=== PATIENT | female | born 1970 | race Caucasian/White ===

== ENCOUNTER → 2016-10-19 | Outpatient (CLI) | payer MEDICARE ==
--- NOTE | 2016-10-19 12:24 | CT ---
EXAMINATION TYPE: CT lumbar spine wo con DATE OF EXAM: 10/19/2016 12:14 PM COMPARISON: NONE HISTORY: 46-year-old female with lumbago, low back pain TECHNIQUE: Contiguous axial scanning of the lumbar spine without IV contrast. Coronal and sagittal re constructions performed. CT DLP: 313.9 mGycm Automated exposure control for dose reduction was used. FINDINGS: Vertebral body heights are preserved and alignment is maintained. The L1-L2 intervertebral disc is desiccated, narrowed, and bulging. Additional bulging disks seen thr oughout the remainder of the lumbar spine. Mild facet arthropathy mid to lower lumbar spine. At T12-L1, no spinal canal or neuroforaminal stenosis. L1-L2, there is bulging disc which impresses onto the ventral thecal sac but does not cause significa nt spinal canal or neuroforaminal stenosis. At L2-L3, there is diffuse disc bulge which impresses on ventral thecal sac but does not cause any si gnificant spinal canal or neuroforaminal stenosis. At L3-L4, there is diffuse disc bulge without significant spinal canal or neuroforaminal stenosis. At L4-L5, there is diffuse disc bulge and mild facet degenerative change. Minimal encroachment onto t he inferior left neuroforamen. No significant spinal canal stenosis. L5-S1, bulging disc and mild facet degenerative change. No significant spinal canal or neuroforaminal stenosis. No prevertebral or paravertebral soft tissue abnormality seen. Wheel Loader Operator image shows a right ventricular AICD lead. IMPRESSION: 1. NO VERTEBRAL COMPRESSION COLLAPSE OR MALALIGNMENT. 2. DEGENERATIVE DISC DISEASE WITH BULGING DISCS THROUGHOUT. THE L1-L2 INTERVERTEBRAL DISC IS ALSO ALEKSANDR ICCATED AND NARROWED. 3. MILD FACET ARTHROPATHY LOWER LUMBAR SPINE. 4. NO SIGNIFICANT SPINAL CANAL OR NEUROFORAMINAL STENOSIS SEEN.
== END | disposition home or self-care (01) ==
LOC: RADCTMAIN 11:43
PROVIDERS: ATTEND Psychiatry & Neurology Neurology
DX: M51.26 Other intervertebral disc displacement, lumbar region (principal); M51.36 Other intervertebral disc degeneration, lumbar region; M46.86 Other specified inflammatory spondylopathies, lumbar region
CPT/HCPCS: 72131

== ENCOUNTER → 2016-10-20 | Outpatient (CLI) | payer MEDICARE ==
[2016-10-20 12:12] LABS: Carbamazepine (Tegretol) <3.0 ug/mL
== END | disposition home or self-care (01) ==
LOC: LABWHC1 09:28
PROVIDERS: ATTEND Psychiatry & Neurology Pain Medicine
DX: R56.9 Unspecified convulsions (principal)
CPT/HCPCS: 36415; 80156; 80177; 80185

== ENCOUNTER → 2016-12-21 | Outpatient (CLI) | payer MEDICARE ==
[2016-12-21 10:26] LABS: CH 29.4; CHCM 31.4; HDW 2.27; HGB 12.3 gm/dL (11.4-16.0); MCH 30.6 pg (25.0-35.0); MCHC 32.5 g/dL (31.0-37.0); MCV 94.1 fL (80.0-100.0); Mean Platelet Volume 7.3; RBC 4.04 m/uL (3.80-5.40); RDW 14.2 % (11.5-15.5)
[2016-12-21 11:41] LABS: ALT 36 U/L (9-52); AST 31 U/L (14-36); Alkaline Phosphatase 66 U/L (38-126); Anion Gap 9 mmol/L; Blood Urea Nitrogen 9 mg/dL (7-17); Calcium 8.7 mg/dL (8.4-10.2); Carbon Dioxide 29 mmol/L (22-30); Chloride 103 mmol/L (98-107); Glucose 95 mg/dL (74-99); Non-African American GFR(MDRD) >60 (>60 ml/min/1.73 sqM); Potassium 4.2 mmol/L (3.5-5.1); Sodium 141 mmol/L (137-145); Total Bilirubin 0.5 mg/dL (0.2-1.3); Total Protein 7.3 g/dL (6.3-8.2)
== END | disposition home or self-care (01) ==
LOC: LABWHC1 10:04
PROVIDERS: ATTEND Internal Medicine Cardiovascular Disease
DX: I50.9 Heart failure, unspecified (principal)
CPT/HCPCS: 36415; 80053; 83880; 85027

== ENCOUNTER 2017-03-22 16:25 | Inpatient (IN) | payer MEDICARE ==
[2017-03-22 16:38] LABS: Glucose,Whole Blood 89 mg/dL (75-99)
[2017-03-22] MEDS ORDERED: SODIUM CHLORIDE 0.9% 500 ML IV STA (17:01)
--- NOTE | 2017-03-22 17:15 | ED ---
General Adult HPI - General Chief complaint: Neuro Symptoms/Deficit Stated complaint: Cannot Walk Time Seen by Provider: 03/22/17 16:30 Source: patient, family, RN notes reviewed Mode of arrival: wheelchair Limitations: no limitations - History of Present Illness Initial comments: This is a 47-year-old female presents to the emergency room stating she has a past medical history for stroke. Patient states she has residual deficit and her left arm and leg. Patient states she has a little bit off balance normally but today she is extremely dizzy and she is having a hard time walking. She keeps falling to the left. Patient states her left leg and arm move as they have prior to this dizziness spell today. Patient states she is not having any headache she denies any new weakness or numbness. Patient denies any visual disturbance or speech disturbance. Patient states her symptoms of dizziness started 1 hour prior to arrival. Patient denies any recent fever chills or cough. Patient denies abdominal pain patient denies nausea vomiting diarrhea. Patient has a very poor historian - Related Data Home Medications Medication Instructions Recorded Confirmed Atorvastatin Calcium [Lipitor] 80 mg PO DAILY 03/08/14 03/22/17 Carvedilol 3.125 mg PO AC-BID 03/08/14 03/22/17 Lisinopril [Prinivil] 10 mg PO DAILY 03/08/14 03/22/17 Spironolactone [Aldactone] 25 mg PO DAILY 03/08/14 03/22/17 Warfarin [Coumadin] 2.5 mg PO DAILY 07/09/14 03/22/17 Donepezil [Aricept] 10 mg PO HS 07/11/14 03/22/17 Phenytoin Sodium Extended 100 mg PO TID 07/11/14 03/22/17 [Dilantin] Gabapentin [Gralise] 600 mg PO TID 03/22/17 03/22/17 Naproxen [Naprosyn] 500 mg PO BID 03/22/17 03/22/17 carBAMazepine CHEW [TEGretol CHEW] 200 mg PO TID 03/22/17 03/22/17 levETIRAcetam [Keppra] 1,500 mg PO BID 03/22/17 03/22/17 Allergies Allergy/AdvReac Type Severity Reaction Status Date / Time cephalexin monohydrate Allergy Rash/Hives Verified 03/22/17 17:07 [From Keflex] Penicillins Allergy Unknown Verified 03/22/17 17:07 Childhood Review of Systems ROS Statement: Those systems with pertinent positive or pertinent negative responses have been documented in the HPI. ROS Other: All systems not noted in ROS Statement are negative. Past Medical History Past Medical History: Coronary Artery Disease (CAD), Heart Failure, CVA/TIA, Seizure Disorder Additional Past Medical History / Comment(s): epilepsy History of Any Multi-Drug Resistant Organisms: None Reported Past Surgical History: Pacemaker Additional Past Surgical History / Comment(s): pacer. Past Psychological History: Depression Smoking Status: Current every day smoker Past Alcohol Use History: None Reported Past Drug Use History: None Reported General Exam - General Exam Comments Initial Comments: GENERAL: Patient is well-developed and well-nourished. Patient is nontoxic and well- hydrated and is in mild distress. ENT: Neck is soft and supple. No significant lymphadenopathy is noted. Oropharynx is clear. Moist mucous membranes. Neck has full range of motion without eliciting any pain. EYES: The sclera were anicteric and conjunctiva were pink and moist. Extraocular movements were intact and pupils were equal round and reactive to light. Eyelids were unremarkable. PULMONARY: Unlabored respirations. Good breath sounds bilaterally. No audible rales rhonchi or wheezing was noted. CARDIOVASCULAR: There is a regular rate and rhythm without any murmurs gallops or rubs. ABDOMEN: Soft and nontender with normal bowel sounds. SKIN: Skin is clear with no lesions or rashes and otherwise unremarkable. NEUROLOGIC: Patient is alert and oriented x3. Cranial nerves II through XII are grossly intact. Motor and sensory are also intact. Normal speech, volume and content. Symmetrical smile. MUSCULOSKELETAL: Patient's cranial nerves II through XII are grossly intact. Patient has full range of motion of her legs however she has some weakness with her dorsiflexion. Patient's left arm has baseline movement according to her there is no new weakness. It does not appear to have quite a coordination that her right arm does but she states that is from the previous stroke. LYMPHATICS: No significant lymphadenopathy is noted PSYCHIATRIC: Normal psychiatric evaluation. Limitations: no limitations Course Vital Signs 03/22/17 03/22/17 16:28 17:44 Temperature 97.7 F 98.5 F Pulse Rate 80 63 Respiratory 18 Rate Blood Pressure 138/78 133/76 O2 Sat by Pulse 98 99 Oximetry Medical Decision Making - Medical Decision Making EKG shows normal sinus rhythm at 60 bpm SC interval is 142 QRS is 88 QT interval 46 QTC is 431. Patient's EKG shows no ST segment elevation or depression or T wave abnormalities are noted. CT showed no acute abnormality. I spoke with Dr. Auguste and he agreed to admit the patient admitted the patient consult the neurology. - Lab Data Result diagrams: 03/22/17 17:04 03/22/17 17:04 Lab Results 03/22/17 03/22/17 03/22/17 Range/Units 16:37 17:04 17:04 WBC 4.2 (3.8-10.6) k/uL RBC 3.97 (3.80-5.40) m/uL Hgb 12.1 (11.4-16.0) gm/dL Hct 36.6 (34.0-46.0) % MCV 92.3 (80.0-100.0) fL MCH 30.6 (25.0-35.0) pg MCHC 33.1 (31.0-37.0) g/dL RDW 14.0 (11.5-15.5) % Plt Count 198 (150-450) k/uL Neutrophils % 48 % Lymphocytes % 41 % Monocytes % 7 % Eosinophils % 2 % Basophils % 0 % Neutrophils # 2.0 (1.3-7.7) k/uL Lymphocytes # 1.7 (1.0-4.8) k/uL Monocytes # 0.3 (0-1.0) k/uL Eosinophils # 0.1 (0-0.7) k/uL Basophils # 0.0 (0-0.2) k/uL PT (9.0-12.0) sec INR (<1.2) APTT (22.0-30.0) sec Sodium (137-145) mmol/L Potassium (3.5-5.1) mmol/L Chloride (98-107) mmol/L Carbon Dioxide (22-30) mmol/L Anion Gap mmol/L BUN (7-17) mg/dL Creatinine (0.52-1.04) mg/dL Est GFR (MDRD) Af Amer (>60 ml/min/1.73 sqM) Est GFR (MDRD) Non-Af (>60 ml/min/1.73 sqM) Glucose (74-99) mg/dL POC Glucose (mg/dL) 89 (75-99) mg/dL POC Glu Patient Service Technician Pst [place]ris [place] Calcium (8.4-10.2) mg/dL Total Bilirubin (0.2-1.3) mg/dL AST (14-36) U/L ALT (9-52) U/L Alkaline Phosphatase (38-126) U/L Total Creatine Kinase 129 (30-135) U/L CK-MB (CK-2) 0.6 (0.0-2.4) ng/mL CK-MB (CK-2) Rel Index 0.5 Troponin I <0.012 (0.000-0.034) ng/mL Total Protein (6.3-8.2) g/dL Albumin (3.5-5.0) g/dL 03/22/17 03/22/17 Range/Units 17:04 17:04 WBC (3.8-10.6) k/uL RBC (3.80-5.40) m/uL Hgb (11.4-16.0) gm/dL Hct (34.0-46.0) % MCV (80.0-100.0) fL MCH (25.0-35.0) pg MCHC (31.0-37.0) g/dL RDW (11.5-15.5) % Plt Count (150-450) k/uL Neutrophils % % Lymphocytes % % Monocytes % % Eosinophils % % Basophils % % Neutrophils # (1.3-7.7) k/uL Lymphocytes # (1.0-4.8) k/uL Monocytes # (0-1.0) k/uL Eosinophils # (0-0.7) k/uL Basophils # (0-0.2) k/uL PT 28.1 H (9.0-12.0) sec INR 2.9 H (<1.2) APTT 30.9 H (22.0-30.0) sec Sodium 139 (137-145) mmol/L Potassium 4.6 (3.5-5.1) mmol/L Chloride 107 (98-107) mmol/L Carbon Dioxide 23 (22-30) mmol/L Anion Gap 9 mmol/L BUN 10 (7-17) mg/dL Creatinine 0.53 (0.52-1.04) mg/dL Est GFR (MDRD) Af Amer >60 (>60 ml/min/1.73 sqM) Est GFR (MDRD) Non-Af >60 (>60 ml/min/1.73 sqM) Glucose 80 (74-99) mg/dL POC Glucose (mg/dL) (75-99) mg/dL POC Glu Patient Service Technician Pst ID Calcium 8.2 L (8.4-10.2) mg/dL Total Bilirubin 0.5 (0.2-1.3) mg/dL AST 48 H (14-36) U/L ALT 40 (9-52) U/L Alkaline Phosphatase 56 (38-126) U/L Total Creatine Kinase (30-135) U/L CK-MB (CK-2) (0.0-2.4) ng/mL CK-MB (CK-2) Rel Index Troponin I (0.000-0.034) ng/mL Total Protein 6.8 (6.3-8.2) g/dL Albumin 3.8 (3.5-5.0) g/dL Disposition Clinical Impression: Dizziness, Ataxia Disposition: ADMITTED IP TO THIS HOSP Referrals: Garth Auguste MD [Primary Care Provider] - 1-2 days Time of Disposition: 18:49
[2017-03-22 17:18] LABS: Basophils % (A) 0 %; CHCM 32.6; Eosinophils # (A) 0.1 k/uL (0-0.7); Eosinophils % (A) 2 %; HCT 36.6 % (34.0-46.0); HDW 2.31; HGB 12.1 gm/dL (11.4-16.0); Luc # (Auto) 0.09; Luc % (Auto) 2; Lymphocytes # (A) 1.7 k/uL (1.0-4.8); Lymphocytes % (A) 41 %; MCH 30.6 pg (25.0-35.0); MCHC 33.1 g/dL (31.0-37.0); MCV 92.3 fL (80.0-100.0); Mean Platelet Volume 8.6; Monocytes # (A) 0.3 k/uL (0-1.0); Monocytes % (A) 7 %; Neutrophils % (A) 48 %; RBC 3.97 m/uL (3.80-5.40); WBC 4.2 k/uL (3.8-10.6); WBC (Perox) 4.31
[2017-03-22 17:26] LABS: ALT 40 U/L (9-52); AST 48 U/L (14-36); Alkaline Phosphatase 56 U/L (38-126); Anion Gap 9 mmol/L; Blood Urea Nitrogen 10 mg/dL (7-17); Calcium 8.2 mg/dL (8.4-10.2); Carbon Dioxide 23 mmol/L (22-30); Chloride 107 mmol/L (98-107); Glucose 80 mg/dL (74-99); Non-African American GFR(MDRD) >60 (>60 ml/min/1.73 sqM); Potassium 4.6 mmol/L (3.5-5.1); Sodium 139 mmol/L (137-145); Total Bilirubin 0.5 mg/dL (0.2-1.3); Total Protein 6.8 g/dL (6.3-8.2)
[2017-03-22 17:27] LABS: INR 2.9 (<1.2); Partial Thromboplastin Time 30.9 sec (22.0-30.0); Prothrombin Time 28.1 sec (9.0-12.0)
[2017-03-22 17:35] LABS: Creatine Kinase 129 U/L (30-135)
--- NOTE | 2017-03-22 17:46 | CT ---
EXAMINATION TYPE: CT brain wo con for TPA DATE OF EXAM: 03/22/2017 COMPARISON: 01/17/2015 HISTORY: Sudden onset inability to walk CT DLP: 1213 mGycm Automated exposure control for dose reduction was used. FINDINGS: The previously seen large areas of encephalomalacia consistent with prior infarcts in the r ight frontal and parietal and left frontal lobes are redemonstrated without interval change. There is no definite new attenuation defect. There is no mass or mass effect. No hemorrhage or fracture. The visualized paranasal sinuses and mastoid sinus air cells and middle ear cavities are unremarkable . IMPRESSION: 1. NO DEFINITE ACUTE PROCESS. 2. PRIOR BILATERAL ENCEPHALOMALACIA CHANGES REDEMONSTRATED.
[2017-03-22 17:48] LABS: Creatine Kinase MB 0.6 ng/mL (0.0-2.4); Troponin I <0.012 ng/mL (0.000-0.034)
--- NOTE | 2017-03-22 17:49 | XR ---
EXAMINATION TYPE: XR chest 3V DATE OF EXAM: 03/22/2017 COMPARISON: 01/17/2015 HISTORY: Altered mental status left-sided numbness TECHNIQUE: Frontal and 2 lateral views of the chest are obtained. FINDINGS: Pacemaker and EKG leads noted. There is no focal air space opacity, pleural effusion, or p neumothorax seen. The cardiac silhouette size is within normal limits. The osseous structures are intact. IMPRESSION: No acute cardiopulmonary process.
--- NOTE | 2017-03-22 22:22 | US ---
EXAMINATION TYPE: US carotid duplex BILAT DATE OF EXAM: 03/22/2017 COMPARISON: Prior in PACS CLINICAL HISTORY: Stenosis. Trouble walking, syncope EXAM MEASUREMENTS: RIGHT: Peak Systolic Velocity (PSV) cm/sec ----- Right CCA: 71.1 ----- Right ICA: 110.4 ----- Right ECA: 75.5 ICA/CCA ratio: 1.6 RIGHT: End Diastole cm/sec ----- Right CCA: 24.6 ----- Right ICA: 40.6 ----- Right ECA: 14.4 LEFT: Peak Systolic Velocity (PSV) cm/sec ----- Left CCA: 98.4 ----- Left ICA: 104.8 ----- Left ECA: 70.2 ICA/CCA ratio: 1.1 LEFT: End Diastole cm/sec ----- Left CCA: 32.1 ----- Left ICA: 37.0 ----- Left ECA: 12.0 VERTEBRALS (direction of flow): Right Vertebral: Antegrade Left Vertebral: Antegrade IMPRESSION: MILD/MODERATE AMOUNT OF PLAQUE VISUALIZED IN BILATERAL BULBS/PROXIMAL ICAS. NO ELEVATED VELOCITIES.
[2017-03-23] MEDS: DONEPEZIL 10 MG TAB PO SCH ×2 (00:29→23:12)
[2017-03-23] MEDS: levETIRAcetam 500 MG TAB PO SCH ×3 (00:30→23:11)
[2017-03-23] MEDS: GABAPENTIN 300 MG CAP PO SCH ×4 (00:30→23:10)
[2017-03-23] MEDS: PHENYTOIN SODIUM EXTENDED 100 MG CAP PO SCH ×4 (00:30→23:11)
[2017-03-23 06:04] LABS: Cholesterol 134 mg/dL (<200); HDL Cholesterol 47 mg/dL (40-60); Triglycerides 61 mg/dL (<150)
[2017-03-23] MEDS ORDERED: ATORVASTATIN 80 MG TAB PO SCH (09:00)
[2017-03-23] MEDS ORDERED: WARFARIN 5 MG TAB PO SCH (09:00)
[2017-03-23] MEDS ORDERED: SPIRONOLACTONE 25 MG TAB PO SCH (09:00)
[2017-03-23] MEDS ORDERED: PHENYTOIN SODIUM EXTENDED 100 MG CAP PO SCH (09:00)
[2017-03-23] MEDS ORDERED: LISINOPRIL 20 MG TAB PO SCH (09:00)
[2017-03-23] MEDS ORDERED: GABAPENTIN 600 MG PO SCH (09:00)
[2017-03-23] MEDS: LISINOPRIL 10 MG TAB PO SCH (09:38)
[2017-03-23] MEDS: CARVEDILOL 3.125 MG TAB PO SCH ×2 (09:38→16:27)
[2017-03-23] MEDS: ATORVASTATIN 80 MG TAB PO SCH (09:38)
[2017-03-23] MEDS: SPIRONOLACTONE 25 MG TAB PO SCH (09:39)
[2017-03-23] MEDS: NAPROXEN 250 MG TAB PO SCH ×2 (09:39→23:12)
--- NOTE | 2017-03-23 09:45 | P.HPIM ---
History of Present Illness 47-year-old female was admitted to the emergency room with complaints of left- sided weakness and able to ambulate. Patient does have history of CVA in 2007 for which she was left with left-sided weakness. Patient is stable at this time. Patient does have a seizure disorder last seizure is been [address] Roberts at this time.. Patient does have a history of a pacemaker states she has cardiomyopathy and heart failure Review of Systems Neurological: Reports transient paralysis, Reports weakness Past Medical History Past Medical History: Coronary Artery Disease (CAD), Heart Failure, CVA/TIA, Seizure Disorder Additional Past Medical History / Comment(s): epilepsy History of Any Multi-Drug Resistant Organisms: None Reported Past Surgical History: Pacemaker Additional Past Surgical History / Comment(s): pacer. Past Psychological History: Depression Smoking Status: Current every day smoker Past Alcohol Use History: None Reported Past Drug Use History: None Reported Medications and Allergies Home Medications Medication Instructions Recorded Confirmed Type Atorvastatin Calcium [Lipitor] 80 mg PO DAILY 03/08/14 03/22/17 History Carvedilol 3.125 mg PO AC-BID 03/08/14 03/22/17 History Lisinopril [Prinivil] 10 mg PO DAILY 03/08/14 03/22/17 History Spironolactone [Aldactone] 25 mg PO DAILY 03/08/14 03/22/17 History Warfarin [Coumadin] 2.5 mg PO DAILY 07/09/14 03/22/17 History Donepezil [Aricept] 10 mg PO HS 07/11/14 03/22/17 History Phenytoin Sodium Extended 100 mg PO TID 07/11/14 03/22/17 History [Dilantin] Gabapentin [Gralise] 600 mg PO TID 03/22/17 03/22/17 History Naproxen [Naprosyn] 500 mg PO BID 03/22/17 03/22/17 History carBAMazepine CHEW [TEGretol CHEW] 200 mg PO TID 03/22/17 03/22/17 History levETIRAcetam [Keppra] 1,500 mg PO BID 03/22/17 03/22/17 History Allergies Allergy/AdvReac Type Severity Reaction Status Date / Time cephalexin monohydrate Allergy Rash/Hives Verified 03/22/17 17:07 [From Keflex] Penicillins Allergy Unknown Verified 03/22/17 17:07 Childhood Physical Exam Vitals: Vital Signs Temp Pulse Resp BP Pulse Ox 03/23/17 09:27 98.1 F 71 18 112/60 97 03/23/17 07:45 97.9 F 65 18 110/82 98 03/23/17 06:00 98.7 F 62 18 124/57 98 03/23/17 04:41 67 18 105/56 98 03/23/17 03:13 58 L 18 99/58 97 03/23/17 01:58 98.1 F 73 18 132/61 97 03/23/17 00:36 98.6 F 69 18 93/55 98 03/22/17 23:06 73 16 112/74 97 03/22/17 21:54 66 113/66 98 03/22/17 21:49 65 18 112/86 98 03/22/17 18:57 98.1 F 64 18 129/68 98 03/22/17 18:14 61 18 133/82 99 03/22/17 17:44 98.5 F 63 133/76 99 03/22/17 17:39 63 18 133/76 99 03/22/17 17:29 64 18 141/83 99 03/22/17 16:28 97.7 F 80 18 138/78 98 Intake and Output 03/22/17 03/23/17 03/23/17 22:59 06:59 14:59 Other: # Voids 1 Weight 56.699 kg - Constitutional General appearance: average body habitus, mild distress - EENT Fractured teeth noted with caries Eyes: PERRLA ENT: normal oropharynx Ears: bilateral: normal - Neck Neck: normal ROM - Respiratory Respiratory: bilateral: CTA - Cardiovascular Rhythm: regular - Gastrointestinal General gastrointestinal: soft - Integumentary Integumentary: normal - Neurologic Neurologic: CNII-XII intact - Musculoskeletal Musculoskeletal: left sided weakness - Psychiatric Psychiatric: A&O x's 3, appropriate affect, intact judgment & insight Results CBC & Chem 7: 03/22/17 17:04 03/22/17 17:04 Labs: Abnormal Lab Results - Last 24 Hours (Table) 03/22/17 03/22/17 Range/Units 17:04 17:04 PT 28.1 H (9.0-12.0) sec INR 2.9 H (<1.2) APTT 30.9 H (22.0-30.0) sec Calcium 8.2 L (8.4-10.2) mg/dL AST 48 H (14-36) U/L Chest x-ray: report reviewed CT Scan - head: report reviewed Assessment and Plan Plan: Assessment Dizziness and ataxia and TIA History of coronary disease with pacemaker for cardiomyopathy History of CVA/TIA 2007 with residual left-sided weakness History of seizures last seizure 7 years ago Plan Neurology consultation
[2017-03-23] MEDS ORDERED: CARVEDILOL 3.125 MG TAB PO SCH (17:30)
[2017-03-23] MEDS: WARFARIN 2.5 MG TAB PO SCH (17:45)
[2017-03-23] MEDS ORDERED: DONEPEZIL 10 MG TAB PO SCH (21:00)
--- NOTE | 2017-03-23 21:21 | P.CNNES ---
History of Present Illness Consult date: 03/23/17 History of Present Illness: The patient is a 47-year-old handed white female with history of stroke in 2007 with left-sided weakness and history of seizures since 2008 seizure-free since 2009. She reports that yesterday she felt a sense of disequilibrium which lasted 45 minutes. She describes it as a feeling of walking on a crew ship. Intermittent resolved after 45 minutes and she there has been no recurrence. Not she denies any new weakness or numbness or visual changes. Her seizures are under control with Dilantin and Tegretol and Keppra. She sees Dr. Roberts. Review of Systems Constitutional: Denies chills, Denies fever Eyes: denies blurred vision, denies pain Ears, nose, mouth and throat: Denies headache, Denies sore throat Cardiovascular: Denies chest pain, Denies shortness of breath Gastrointestinal: Denies abdominal pain, Denies diarrhea, Denies nausea, Denies vomiting Genitourinary: Denies dysuria, Denies hematuria Musculoskeletal: Denies myalgias Integumentary: Denies pruritus, Denies rash Neurological: Denies numbness, Denies weakness Psychiatric: Reports as per HPI Past Medical History Past Medical History: Coronary Artery Disease (CAD), Heart Failure, CVA/TIA, Seizure Disorder Additional Past Medical History / Comment(s): epilepsy History of Any Multi-Drug Resistant Organisms: None Reported Past Surgical History: Pacemaker Additional Past Surgical History / Comment(s): pacer. Past Anesthesia/Blood Transfusion Reactions: No Reported Reaction Type of Cardiac Device: Permanent Pacemaker Device Placement Date:: 2012 Smoking Status: Current every day smoker - Past Family History Father Family Medical History: Coronary Artery Disease (CAD) Medications and Allergies Home Medications Medication Instructions Recorded Confirmed Type Atorvastatin Calcium [Lipitor] 80 mg PO DAILY 03/08/14 03/22/17 History Carvedilol 3.125 mg PO AC-BID 03/08/14 03/22/17 History Lisinopril [Prinivil] 10 mg PO DAILY 03/08/14 03/22/17 History Spironolactone [Aldactone] 25 mg PO DAILY 03/08/14 03/22/17 History Warfarin [Coumadin] 2.5 mg PO DAILY 07/09/14 03/22/17 History Donepezil [Aricept] 10 mg PO HS 07/11/14 03/22/17 History Phenytoin Sodium Extended 100 mg PO TID 07/11/14 03/22/17 History [Dilantin] Gabapentin [Gralise] 600 mg PO TID 03/22/17 03/22/17 History Naproxen [Naprosyn] 500 mg PO BID 03/22/17 03/22/17 History carBAMazepine CHEW [TEGretol CHEW] 200 mg PO TID 03/22/17 03/22/17 History levETIRAcetam [Keppra] 1,500 mg PO BID 03/22/17 03/22/17 History Allergies Allergy/AdvReac Type Severity Reaction Status Date / Time cephalexin monohydrate Allergy Rash/Hives Verified 03/22/17 17:07 [From Keflex] Penicillins Allergy Unknown Verified 03/22/17 17:07 Childhood Physical Examination - Vital Signs Vital Signs: Vital Signs Temp Pulse Pulse Resp BP BP Pulse Ox 03/23/17 16:00 97.8 F 65 16 109/47 99 03/23/17 12:00 98 F 64 16 104/57 100 03/23/17 09:27 98.1 F 71 18 112/60 97 03/23/17 07:45 97.9 F 65 18 110/82 98 03/23/17 06:00 98.7 F 62 18 124/57 98 03/23/17 04:41 67 18 105/56 98 03/23/17 03:13 58 L 18 99/58 97 03/23/17 01:58 98.1 F 73 18 132/61 97 03/23/17 00:36 98.6 F 69 18 93/55 98 03/22/17 23:06 73 16 112/74 97 03/22/17 21:54 66 113/66 98 03/22/17 21:49 65 18 112/86 98 Intake and Output 03/23/17 03/23/17 03/23/17 06:59 14:59 22:59 Intake Total 120 Balance 120 Intake: Oral 120 Other: # Voids 1 1 - Constitutional General appearance: cooperative - EENT EENT: PERRL - Respiratory Respiratory: lungs clear - Cardiovascular Cardiovascular: regular rate - Integumentary Integumentary: normal - Neurologic Mental status she was awake alert and oriented there was no dysphasia Cranial nerve examination: PERRL, tongue midline, facial droop Speech examination: intact Motor examination - right side: 5/5: biceps, triceps, wrist flexion, wrist extension, youth coordinator, hip flexors, knee extensors, dorsiflexion, toe extension (EHL) , plantarflexion Motor examination - left side: 4/5: wrist extension, youth coordinator, 5/5: biceps, triceps , wrist flexion, dorsiflexion, toe extension (EHL) Detailed sensory examination: other (Decreased light touch on the left arm and leg) Results - Laboratory Findings CBC and BMP: 03/22/17 17:04 03/22/17 17:04 Abnormal Lab Findings: Abnormal Labs 03/22/17 03/22/17 17:04 17:04 PT 28.1 H INR 2.9 H APTT 30.9 H Calcium 8.2 L AST 48 H Assessment and Plan (1) TIA (transient ischemic attack) Status: Acute Code(s): G45.9 - TRANSIENT CEREBRAL ISCHEMIC ATTACK, UNSPECIFIED (2) Seizure disorder Status: Chronic Code(s): G40.909 - EPILEPSY, UNSP, NOT INTRACTABLE, WITHOUT STATUS EPILEPTICUS (3) History of stroke Status: Chronic Code(s): Z86.73 - PRSNL HX OF TIA (TIA), AND CEREB INFRC W/O RESID DEFICITS Plan: The patient is a 47-year-old woman with history of seizure disorder and stroke. She has been relatively stable in terms of her seizures and stroke. Yesterday she was admitted to the hospital with 45 minute episode of disequilibrium. The patient may have had a TIA. She is on Coumadin and her INR was 2.9 the patient is feeling like she is back to baseline. She had a CT of the brain which showed stable appearing areas of encephalomalacia consistent with prior infarcts in the right frontal and parietal lobes
[2017-03-24] MEDS: CARVEDILOL 3.125 MG TAB PO SCH ×2 (06:45→17:20)
[2017-03-24 07:05] LABS: INR 1.7 (<1.2); Prothrombin Time 16.7 sec (9.0-12.0)
[2017-03-24] MEDS: SPIRONOLACTONE 25 MG TAB PO SCH (07:47)
[2017-03-24] MEDS: ATORVASTATIN 80 MG TAB PO SCH (07:47)
[2017-03-24] MEDS: GABAPENTIN 300 MG CAP PO SCH ×2 (07:48→15:51)
[2017-03-24] MEDS: NAPROXEN 250 MG TAB PO SCH (07:48)
[2017-03-24] MEDS: PHENYTOIN SODIUM EXTENDED 100 MG CAP PO SCH ×2 (07:49→15:51)
[2017-03-24] MEDS: LISINOPRIL 10 MG TAB PO SCH (07:49)
[2017-03-24] MEDS: levETIRAcetam 500 MG TAB PO SCH (07:49)
--- NOTE | 2017-03-24 12:56 | P.DS ---
Providers Date of admission: 03/22/17 18:49 Expected date of discharge: 03/24/17 Attending physician: Garth Auguste Consults: 03/22/17 18:49 Consult Physician Routine Consulting Provider: Leticia Rivera Consult Reason/Comments: Dizziness, ataxia Do you want consulting provider notified?: Yes Primary care physician: Garth Auguste Hospital Course: 47-year-old female presented to the emergency room with complaints of weakness unable to stand increasingly left-sided weakness. Patient was evaluated by neurology. CAT scan no acute changes. Patient is at baseline with left-sided weakness. Assessment TIA history of CVA/TIA 2007 seizure disorder no seizures for seven years [address] Foreman history pacemaker for cardiomyopathy with her failure Plan discharge home to follow up with Dr. Corral telling physician Dr. Auguste Plan - Discharge Summary New Discharge Prescriptions: Continue Spironolactone [Aldactone] 25 mg PO DAILY Carvedilol 3.125 mg PO AC-BID Atorvastatin Calcium [Lipitor] 80 mg PO DAILY Lisinopril [Prinivil] 10 mg PO DAILY Warfarin [Coumadin] 2.5 mg PO DAILY Phenytoin Sodium Extended [Dilantin] 100 mg PO TID Donepezil [Aricept] 10 mg PO HS Naproxen [Naprosyn] 500 mg PO BID levETIRAcetam [Keppra] 1,500 mg PO BID carBAMazepine CHEW [TEGretol Chew] 200 mg PO TID Gabapentin [Gralise] 600 mg PO TID Discharge Medication List Atorvastatin Calcium [Lipitor] 80 mg PO DAILY 03/08/14 [History] Carvedilol 3.125 mg PO AC-BID 03/08/14 [History] Lisinopril [Prinivil] 10 mg PO DAILY 03/08/14 [History] Spironolactone [Aldactone] 25 mg PO DAILY 03/08/14 [History] Warfarin [Coumadin] 2.5 mg PO DAILY 07/09/14 [History] Donepezil [Aricept] 10 mg PO HS 07/11/14 [History] Phenytoin Sodium Extended [Dilantin] 100 mg PO TID 07/11/14 [History] Gabapentin [Gralise] 600 mg PO TID 03/22/17 [History] Naproxen [Naprosyn] 500 mg PO BID 03/22/17 [History] carBAMazepine CHEW [TEGretol Chew] 200 mg PO TID 03/22/17 [History] levETIRAcetam [Keppra] 1,500 mg PO BID 03/22/17 [History] Follow up Appointment(s)/Referral(s): Garth Auguste MD [Primary Care Provider] - 1-2 days Uma Roberts MD [STAFF PHYSICIAN] - 2 Weeks
--- NOTE | 2017-03-24 13:26 | ECHOF ---
Referral Reason:lv function/hx of stroke MEASUREMENTS -------- HEIGHT: 165.1 cm WEIGHT: 57.2 kg BP: 125/62 RVIDd: 1.9 cm (< 3.3) IVSd: 1.1 cm (0.6 - 1.1) LVIDd: 4.2 cm (3.9 - 5.3) LVPWd: 1.1 cm (0.6 - 1.1) IVSs: 1.5 cm LVIDs: 4.0 cm LVPWs: 1.4 cm LAESV Index (A-L): 50.46 ml/m Ao Diam: 3.0 cm (2.0 - 3.7) AV Cusp: 1.5 cm (1.5 - 2.6) LA Diam: 2.9 cm (2.7 - 3.8) MV EXCURSION: 19.848 mm (> 18.000) MV EF SLOPE: 83 mm/s (70 - 150) EPSS: 2.7 cm MV E Eusebio: 0.63 m/s MV DecT: 245 ms MV A Eusebio: 0.49 m/s MV E/A Ratio: 1.29 RAP: 5.00 mmHg RVSP: 22.48 mmHg FINDINGS -------- Sinus rhythm. This was a technically adequate study. There is borderline concentric left ventricular hypertrophy. Overall left ventricular systolic function is severely impaired with, an EF between 20 - 25 %. The right ventricle is normal in size and function. LA is severely dilated >40 ml/m2 The right atrium is normal in size. Electronic pacemaker lead seen in the right ventricular cavity. Aortic valve is trileaflet and is mildly thickened. There is no evidence of aortic regurgitation. There is no evidence of aortic stenosis. The mitral valve leaflets are mildly thickened. Mild mitral annular calcification present. There is trace to mild mitral regurgitation. Trace tricuspid regurgitation present. There is no evidence of pulmonary hypertension. The right ventricular systolic pressure, as measured by Doppler, is 22.48mmHg. The pulmonic valve was not well visualized. The aortic root size is normal. Normal inferior vena cava with normal inspiratory collapse consistent with estimated right atrial pressure of 5 mmHg. The pericardium is normal. There is no pericardial effusion. CONCLUSIONS -------- 1. Sinus rhythm. 2. There is trace to mild mitral regurgitation. 3. Trace tricuspid regurgitation present. 4. There is no evidence of pulmonary hypertension. 5. The right ventricular systolic pressure, as measured by Doppler, is 22.48mmHg. 6. The pulmonic valve was not well visualized. 7. The aortic root size is normal. 8. There is no pericardial effusion. 9. This was a technically adequate study. 10. There is borderline concentric left ventricular hypertrophy. 11. Overall left ventricular systolic function is severely impaired with, an EF between 20 - 25 %. 12. LA is severely dilated >40 ml/m2 13. Electronic pacemaker lead seen in the right ventricular cavity. 14. Aortic valve is trileaflet and is mildly thickened. 15. The mitral valve leaflets are mildly thickened. 16. Mild mitral annular calcification present. USABILITY STRATEGIST: Ganesh Carlos RDCS
[2017-03-24 15:10] VITALS: PULSE 75; RESP 18
[2017-03-24] MEDS: WARFARIN 2.5 MG TAB PO SCH (17:20)
[2017-03-24 17:52] VITALS: BP 106/70; TEMP 97.8
== END 2017-03-24 18:15 | disposition home or self-care (01) | DRG 69 ==
LOC: EC 16:25 → 6SEL 18:49
PROVIDERS: ADMIT Family Medicine; ATTEND Family Medicine
DX: G45.9 Transient cerebral ischemic attack, unspecified (principal); I42.9 Cardiomyopathy, unspecified; I50.9 Heart failure, unspecified; I69.354 Hemiplegia and hemiparesis following cerebral infarction affecting left non-dominant side; F32.9 Major depressive disorder, single episode, unspecified; K02.9 Dental caries, unspecified; R29.810 Facial weakness; G40.909 Epilepsy, unspecified, not intractable, without status epilepticus; I25.10 Atherosclerotic heart disease of native coronary artery without angina pectoris; R27.0 Ataxia, unspecified; F17.200 Nicotine dependence, unspecified, uncomplicated; Z88.1 Allergy status to other antibiotic agents; Z95.0 Presence of cardiac pacemaker; Z79.899 Other long term (current) drug therapy; Z79.01 Long term (current) use of anticoagulants; Z82.49 Family history of ischemic heart disease and other diseases of the circulatory system; Z91.010 Allergy to peanuts; Z79.1 Long term (current) use of non-steroidal anti-inflammatories (NSAID)
CPT/HCPCS: 36415; 70450; 71020; 80053; 80061; 82550; 82553; 84484; 85025; 85610; 85730; 93005; 93306; 93880; 94760; 99285

== ENCOUNTER 2017-06-08 15:35 | Emergency (ER) | payer MEDICARE ==
[2017-06-08] MEDS ORDERED: SODIUM CHLORIDE 0.9% 1,000 ML IV STA (16:52)
[2017-06-08 17:30] VITALS: PULSE 74; RESP 18
[2017-06-08 17:33] LABS: Basophils % (A) 0 %; CH 30.6; CHCM 32.7; Eosinophils # (A) 0.1 k/uL (0-0.7); Eosinophils % (A) 1 %; HCT 37.2 % (34.0-46.0); HDW 2.35; HGB 11.8 gm/dL (11.4-16.0); Luc # (Auto) 0.06; Luc % (Auto) 1; Lymphocytes # (A) 1.3 k/uL (1.0-4.8); Lymphocytes % (A) 25 %; MCH 29.9 pg (25.0-35.0); MCHC 31.8 g/dL (31.0-37.0); Monocytes # (A) 0.4 k/uL (0-1.0); Monocytes % (A) 7 %; Neutrophils # (A) 3.3 k/uL (1.3-7.7); Neutrophils % (A) 65 %; RBC 3.95 m/uL (3.80-5.40); RDW 14.7 % (11.5-15.5); WBC 5.1 k/uL (3.8-10.6)
--- NOTE | 2017-06-08 17:39 | ED ---
Nausea/Vomiting/Diarrhea HPI - General Chief complaint: Nausea/Vomiting/Diarrhea Stated complaint: NVD Time Seen by Provider: 06/08/17 16:49 Source: patient, RN notes reviewed Mode of arrival: ambulatory Limitations: no limitations - History of Present Illness Initial comments: 47-year-old female presents emergency Department chief complaints diarrhea and abdominal discomfort. Patient states that over the last 4 days she's had diarrhea several episodes at most only 7 episodes in one day. Patient denies any melena or hematochezia. Patient states she's had some nausea no vomiting no fever no chills. She denies any recent travel and no recent antibiotic use. Patient states she's had some abdominal cramping he is no localized pain. - Related Data Home Medications Medication Instructions Recorded Confirmed Atorvastatin Calcium [Lipitor] 80 mg PO HS 03/08/14 06/08/17 Carvedilol 3.125 mg PO AC-BID 03/08/14 06/08/17 Lisinopril [Prinivil] 10 mg PO DAILY 03/08/14 06/08/17 Spironolactone [Aldactone] 25 mg PO DAILY 03/08/14 06/08/17 Warfarin [Coumadin] 2.5 mg PO HS 07/09/14 06/08/17 Donepezil [Aricept] 10 mg PO HS 07/11/14 06/08/17 Phenytoin Sodium Extended 100 mg PO TID 07/11/14 06/08/17 [Dilantin] Gabapentin [Gralise] 600 mg PO TID 03/22/17 06/08/17 carBAMazepine CHEW [TEGretol Chew] 200 mg PO TID 03/22/17 06/08/17 levETIRAcetam [Keppra] 1,500 mg PO BID 03/22/17 06/08/17 ALPRAZolam [Xanax] 0.5 mg PO BID PRN 06/08/17 06/08/17 Previous Rx's Medication Instructions Recorded Ciprofloxacin HCl [Cipro] 500 mg PO Q12HR #10 tablet 06/08/17 Allergies Allergy/AdvReac Type Severity Reaction Status Date / Time cephalexin monohydrate Allergy Rash/Hives Verified 06/08/17 17:22 [From Keflex] Penicillins Allergy Anaphylaxis Verified 06/08/17 17:22 Review of Systems ROS Statement: Those systems with pertinent positive or pertinent negative responses have been documented in the HPI. ROS Other: All systems not noted in ROS Statement are negative. Past Medical History Past Medical History: Coronary Artery Disease (CAD), Heart Failure, CVA/TIA, Seizure Disorder Additional Past Medical History / Comment(s): epilepsy History of Any Multi-Drug Resistant Organisms: None Reported Past Surgical History: Pacemaker Additional Past Surgical History / Comment(s): pacer. Past Anesthesia/Blood Transfusion Reactions: No Reported Reaction Type of Cardiac Device: Permanent Pacemaker Device Placement Date:: 2012 Past Psychological History: Anxiety, Depression Smoking Status: Current every day smoker Past Alcohol Use History: None Reported Past Drug Use History: None Reported - Past Family History Father Family Medical History: Coronary Artery Disease (CAD) General Exam Limitations: no limitations General appearance: alert, in no apparent distress Head exam: Present: atraumatic, normocephalic, normal inspection Respiratory exam: Present: normal lung sounds bilaterally. Absent: respiratory distress, wheezes, rales, rhonchi, stridor Cardiovascular Exam: Present: regular rate, normal rhythm, normal heart sounds. Absent: systolic murmur, diastolic murmur, rubs, gallop, clicks GI/Abdominal exam: Present: soft, tenderness (Mild diffuse), normal bowel sounds. Absent: distended, guarding, rebound, rigid Back exam: Absent: CVA tenderness (R), CVA tenderness (L) Course Vital Signs 06/08/17 06/08/17 15:48 17:29 Temperature 99.6 F Pulse Rate 73 74 Respiratory 20 18 Rate Blood Pressure 110/56 122/70 O2 Sat by Pulse 97 97 Oximetry Medical Decision Making - Medical Decision Making 47-year-old female for diarrhea. Patient states that she had 7 episodes yesterday but has improved only to today. Patient's lab work essentially unremarkable than the UTI. Patient was started on ciprofloxacin at this time return parameters were discussed. Patient's diarrhea is most likely related to viral illness. - Lab Data Result diagrams: 06/08/17 17:23 06/08/17 17:23 Lab Results 06/08/17 06/08/17 06/08/17 Range/Units 17:23 17:23 17:33 WBC 5.1 (3.8-10.6) k/uL RBC 3.95 (3.80-5.40) m/uL Hgb 11.8 (11.4-16.0) gm/dL Hct 37.2 (34.0-46.0) % MCV 94.0 (80.0-100.0) fL MCH 29.9 (25.0-35.0) pg MCHC 31.8 (31.0-37.0) g/dL RDW 14.7 (11.5-15.5) % Plt Count 183 (150-450) k/uL Neutrophils % 65 % Lymphocytes % 25 % Monocytes % 7 % Eosinophils % 1 % Basophils % 0 % Neutrophils # 3.3 (1.3-7.7) k/uL Lymphocytes # 1.3 (1.0-4.8) k/uL Monocytes # 0.4 (0-1.0) k/uL Eosinophils # 0.1 (0-0.7) k/uL Basophils # 0.0 (0-0.2) k/uL Sodium 139 (137-145) mmol/L Potassium 3.8 (3.5-5.1) mmol/L Chloride 104 (98-107) mmol/L Carbon Dioxide 26 (22-30) mmol/L Anion Gap 9 mmol/L BUN 8 (7-17) mg/dL Creatinine 0.59 (0.52-1.04) mg/dL Est GFR (MDRD) Af Amer >60 (>60 ml/min/1.73 sqM) Est GFR (MDRD) Non-Af >60 (>60 ml/min/1.73 sqM) Glucose 80 (74-99) mg/dL Calcium 8.5 (8.4-10.2) mg/dL Total Bilirubin 0.4 (0.2-1.3) mg/dL AST 87 H (14-36) U/L ALT 87 H (9-52) U/L Alkaline Phosphatase 86 (38-126) U/L Total Protein 6.9 (6.3-8.2) g/dL Albumin 3.9 (3.5-5.0) g/dL Amylase 41 (30-110) U/L Lipase 36 (23-300) U/L Urine Color Yellow Urine Appearance Cloudy H (Clear) Urine pH 5.5 (5.0-8.0) Ur Specific [place] 1.013 (1.001-1.035) Urine Protein Trace H (Negative) Urine Glucose (UA) Negative (Negative) Urine Ketones Negative (Negative) Urine Blood Moderate H (Negative) Urine Nitrite Positive H (Negative) Urine Bilirubin Negative (Negative) Urine Urobilinogen <2.0 (<2.0) mg/dL Ur Leukocyte Esterase Moderate H (Negative) Urine RBC 2 (0-5) /hpf Urine WBC 9 H (0-5) /hpf Ur Squamous Epith Cells 20 H (0-4) /hpf Urine Bacteria Many H (None) /hpf Urine Mucus Moderate H (None) /hpf Disposition Clinical Impression: Diarrhea, UTI (urinary tract infection) Disposition: HOME SELF-CARE Condition: Stable Instructions: Acute Diarrhea (ED) Additional Instructions: Please return to the Emergency Department if symptoms worsen or any other concerns. Prescriptions: Ciprofloxacin HCl [Cipro] 500 mg PO Q12HR #10 tablet Referrals: Garth Auguste MD [Primary Care Provider] - 1-2 days Time of Disposition: 18:32
[2017-06-08 17:41] LABS: ALT 87 U/L (9-52); AST 87 U/L (14-36); Alkaline Phosphatase 86 U/L (38-126); Amylase 41 U/L (30-110); Anion Gap 9 mmol/L; Blood Urea Nitrogen 8 mg/dL (7-17); Calcium 8.5 mg/dL (8.4-10.2); Carbon Dioxide 26 mmol/L (22-30); Chloride 104 mmol/L (98-107); Glucose 80 mg/dL (74-99); Non-African American GFR(MDRD) >60 (>60 ml/min/1.73 sqM); Potassium 3.8 mmol/L (3.5-5.1); Sodium 139 mmol/L (137-145); Total Bilirubin 0.4 mg/dL (0.2-1.3); Total Protein 6.9 g/dL (6.3-8.2)
[2017-06-08 17:57] LABS: Appearance,Urine Cloudy (Clear); Bacteria,Urine Many /hpf; Bilirubin,Urine Negative (Negative); Glucose,Urine (UA) Negative (Negative); Ketones,Urine Negative (Negative); Leukocyte Esterase,Urine Moderate (Negative); Mucus,Urine Moderate /hpf; Nitrite,Urine Positive (Negative); PH, Urine 5.5 (5.0-8.0); Particle Count 24487; Protein,Urine Trace (Negative); RBC,Urine 2 /hpf (0-5); Specific Gravity,Urine 1.013 (1.001-1.035); Squamous Epithelial Cell,Urine 20 /hpf (0-4); UA Billing (MACRO vs. MICRO) MICRO; Urobilinogen,Urine <2.0 mg/dL (<2.0); WBC,Urine 9 /hpf (0-5)
--- NOTE | 2017-06-08 18:23 | XR ---
EXAMINATION TYPE: XR KUB DATE OF EXAM: 06/08/2017 COMPARISON: 03/15/2010 HISTORY: Diarrhea TECHNIQUE: 2 views FINDINGS: There is no sign of intestinal obstruction or pneumoperitoneum. Fecal pattern is normal. Th ere is no evidence of a mass. Lung bases are clear. There are no pathologic calcifications over the k idneys. There are phleboliths in the pelvis. IMPRESSION: Nonacute abdomen. No change.
[2017-06-08 18:47] VITALS: BP 112/66; TEMP 97.7
== END 2017-06-08 18:47 | disposition home or self-care (01) ==
LOC: EC 15:35
DX: N39.0 Urinary tract infection, site not specified (principal); R19.7 Diarrhea, unspecified; R10.84 Generalized abdominal pain; R11.0 Nausea; I25.10 Atherosclerotic heart disease of native coronary artery without angina pectoris; I50.9 Heart failure, unspecified; G40.909 Epilepsy, unspecified, not intractable, without status epilepticus; F32.9 Major depressive disorder, single episode, unspecified; D41.9 Neoplasm of uncertain behavior of unspecified urinary organ; F17.200 Nicotine dependence, unspecified, uncomplicated; Z86.73 Personal history of transient ischemic attack (TIA), and cerebral infarction without residual deficits; Z79.01 Long term (current) use of anticoagulants; Z79.899 Other long term (current) drug therapy; Z88.0 Allergy status to penicillin; Z88.1 Allergy status to other antibiotic agents
CPT/HCPCS: 36415; 74000; 80053; 81001; 82150; 83690; 85025; 87077; 87086; 87186; 96360; 99284

== ENCOUNTER → 2017-07-27 | Outpatient (CLI) | payer MEDICARE ==
[2017-07-27 14:13] LABS: Carbamazepine (Tegretol) 3.3 ug/mL
== END | disposition home or self-care (01) ==
LOC: LABWHC1 10:11
PROVIDERS: ATTEND Psychiatry & Neurology Pain Medicine
DX: G40.909 Epilepsy, unspecified, not intractable, without status epilepticus (principal)
CPT/HCPCS: 36415; 80156; 80177; 80185

== ENCOUNTER 2018-02-24 22:59 | Inpatient (IN) | payer MEDICARE ==
[2018-02-24] MEDS ORDERED: SODIUM CHLORIDE 0.9% 1,000 ML IV STA (23:22)
[2018-02-24 23:23] LABS: Glucose,Whole Blood 104 mg/dL (75-99)
[2018-02-24 23:35] LABS: Basophils % (A) 0 %; Eosinophils % (A) 1 %; HCT 34.1 % (34.0-46.0); HGB 11.1 gm/dL (11.4-16.0); Lymphocytes # (A) 1.6 k/uL (1.0-4.8); Lymphocytes % (A) 39 %; MCH 28.4 pg (25.0-35.0); MCHC 32.5 g/dL (31.0-37.0); MCV 87.4 fL (80.0-100.0); Mean Platelet Volume 7.5; Monocytes # (A) 0.3 k/uL (0-1.0); Monocytes % (A) 9 %; Neutrophils # (A) 1.9 k/uL (1.3-7.7); Neutrophils % (A) 48 %; Platelet Count 184 k/uL (150-450); RBC 3.89 m/uL (3.80-5.40); RDW 14.5 % (11.5-15.5); WBC 3.9 k/uL (3.8-10.6)
--- NOTE | 2018-02-24 23:39 | ED ---
Neuro HPI - General Chief Complaint: Neuro Symptoms/Deficit Stated Complaint: TIA symptoms Time Seen by Provider: 02/24/18 23:12 Source: patient, family, RN notes reviewed Mode of arrival: wheelchair Limitations: no limitations - History of Present Illness Is the patient presenting with stroke symptoms?: No Initial Comments: This is a 47-year-old female with a history of CVA in the past she states it was right side with left upper and lower extremity deficits including drop foot and inability to use her left arm who states she had the onset about 2 hours ago of left-sided weakness. She also states she has slurred speech she states she was on the telephone talking at the time. She does states she had a CVA in 2007 but the symptoms resolved. She states it was on a right side of her brain. Patient does admit to being a smoker there is a history of cardiomyopathy. She does state her mother had a heart attack in early age. No other complaints at this time no other modifying factors no trauma no headache blurry vision fevers chills sweats. - Related Data Home Medications: Home Medications Medication Instructions Recorded Confirmed Atorvastatin Calcium [Lipitor] 80 mg PO HS 03/08/14 06/08/17 Carvedilol 3.125 mg PO AC-BID 03/08/14 06/08/17 Lisinopril [Prinivil] 10 mg PO DAILY 03/08/14 06/08/17 Spironolactone [Aldactone] 25 mg PO DAILY 03/08/14 06/08/17 Warfarin [Coumadin] 2.5 mg PO HS 07/09/14 06/08/17 Donepezil [Aricept] 10 mg PO HS 07/11/14 06/08/17 Phenytoin Sodium Extended 100 mg PO TID 07/11/14 06/08/17 [Dilantin] Gabapentin [Gralise] 600 mg PO TID 03/22/17 06/08/17 carBAMazepine CHEW [TEGretol Chew] 200 mg PO TID 03/22/17 06/08/17 levETIRAcetam [Keppra] 1,500 mg PO BID 03/22/17 06/08/17 ALPRAZolam [Xanax] 0.5 mg PO BID PRN 06/08/17 06/08/17 Previous Rx's Medication Instructions Recorded Ciprofloxacin HCl [Cipro] 500 mg PO Q12HR #10 tablet 06/08/17 Allergies/Adverse Reactions: Allergies Allergy/AdvReac Type Severity Reaction Status Date / Time cephalexin monohydrate Allergy Rash/Hives Verified 02/24/18 23:07 [From Keflex] Penicillins Allergy Anaphylaxis Verified 02/24/18 23:07 Review of Systems ROS Statement: Those systems with pertinent positive or pertinent negative responses have been documented in the HPI. ROS Other: All systems not noted in ROS Statement are negative. General Exam - General Exam Comments Initial Comments: This a well-developed well-nourished awake alert oriented 3 female Limitations: no limitations General appearance: alert, other (Slight left facial asymmetry residual from her previous CVA) Head exam: Present: atraumatic, normocephalic, normal inspection Eye exam: Present: normal appearance, PERRL, EOMI. Absent: scleral icterus, conjunctival injection, periorbital swelling ENT exam: Present: normal exam, mucous membranes moist Neck exam: Present: normal inspection. Absent: tenderness, meningismus, lymphadenopathy Respiratory exam: Present: normal lung sounds bilaterally. Absent: respiratory distress, wheezes, rales, rhonchi, stridor Cardiovascular Exam: Present: regular rate, normal rhythm, normal heart sounds. Absent: systolic murmur, diastolic murmur, rubs, gallop, clicks GI/Abdominal exam: Present: soft, normal bowel sounds. Absent: distended, tenderness, guarding, rebound, rigid Extremities exam: Present: normal inspection, full ROM, normal capillary refill. Absent: tenderness, pedal edema, joint swelling, calf tenderness Back exam: Present: normal inspection Neurological exam: Present: alert, oriented X3, CN II-XII intact Psychiatric exam: Present: normal affect, normal mood Skin exam: Present: warm, dry, intact, normal color. Absent: rash Stroke MDM - Lab Data Result diagrams: 02/24/18 23:20 02/24/18 23:20 Lab Results 02/24/18 02/24/18 02/24/18 Range/Units 23:19 23:20 23:20 WBC 3.9 (3.8-10.6) k/uL RBC 3.89 (3.80-5.40) m/uL Hgb 11.1 L (11.4-16.0) gm/dL Hct 34.1 (34.0-46.0) % MCV 87.4 (80.0-100.0) fL MCH 28.4 (25.0-35.0) pg MCHC 32.5 (31.0-37.0) g/dL RDW 14.5 (11.5-15.5) % Plt Count 184 (150-450) k/uL Neutrophils % 48 % Lymphocytes % 39 % Monocytes % 9 % Eosinophils % 1 % Basophils % 0 % Neutrophils # 1.9 (1.3-7.7) k/uL Lymphocytes # 1.6 (1.0-4.8) k/uL Monocytes # 0.3 (0-1.0) k/uL Eosinophils # 0.0 (0-0.7) k/uL Basophils # 0.0 (0-0.2) k/uL PT (9.0-12.0) sec INR (<1.2) APTT (22.0-30.0) sec Sodium (137-145) mmol/L Potassium (3.5-5.1) mmol/L Chloride (98-107) mmol/L Carbon Dioxide (22-30) mmol/L Anion Gap mmol/L BUN (7-17) mg/dL Creatinine (0.52-1.04) mg/dL Est GFR (CKD-EPI)AfAm (>60 ml/min/1.73 sqM) Est GFR (CKD-EPI)NonAf (>60 ml/min/1.73 sqM) Glucose (74-99) mg/dL POC Glucose (mg/dL) 104 H (75-99) mg/dL POC Glu [employer] Security Officer ID Arnel, Kaye Calcium (8.4-10.2) mg/dL Total Bilirubin (0.2-1.3) mg/dL AST (14-36) U/L ALT (9-52) U/L Alkaline Phosphatase (38-126) U/L Total Creatine Kinase 171 H (30-135) U/L CK-MB (CK-2) 1.1 (0.0-2.4) ng/mL CK-MB (CK-2) Rel Index 0.6 Troponin I <0.012 (0.000-0.034) ng/mL Total Protein (6.3-8.2) g/dL Albumin (3.5-5.0) g/dL 06/29/18 06/29/18 Range/Units 23:20 23:20 WBC (3.8-10.6) k/uL RBC (3.80-5.40) m/uL Hgb (11.4-16.0) gm/dL Hct (34.0-46.0) % MCV (80.0-100.0) fL MCH (25.0-35.0) pg MCHC (31.0-37.0) g/dL RDW (11.5-15.5) % Plt Count (150-450) k/uL Neutrophils % % Lymphocytes % % Monocytes % % Eosinophils % % Basophils % % Neutrophils # (1.3-7.7) k/uL Lymphocytes # (1.0-4.8) k/uL Monocytes # (0-1.0) k/uL Eosinophils # (0-0.7) k/uL Basophils # (0-0.2) k/uL PT 16.6 H (9.0-12.0) sec INR 1.8 H (<1.2) APTT 24.5 (22.0-30.0) sec Sodium 138 (137-145) mmol/L Potassium 4.0 (3.5-5.1) mmol/L Chloride 103 (98-107) mmol/L Carbon Dioxide 24 (22-30) mmol/L Anion Gap 11 mmol/L BUN 12 (7-17) mg/dL Creatinine 0.60 (0.52-1.04) mg/dL Est GFR (CKD-EPI)AfAm >90 (>60 ml/min/1.73 sqM) Est GFR (CKD-EPI)NonAf >90 (>60 ml/min/1.73 sqM) Glucose 96 (74-99) mg/dL POC Glucose (mg/dL) (75-99) mg/dL POC Glu [employer] Officer ID Calcium 8.3 L (8.4-10.2) mg/dL Total Bilirubin 0.1 L (0.2-1.3) mg/dL AST 34 (14-36) U/L ALT 40 (9-52) U/L Alkaline Phosphatase 65 (38-126) U/L Total Creatine Kinase (30-135) U/L CK-MB (CK-2) (0.0-2.4) ng/mL CK-MB (CK-2) Rel Index Troponin I (0.000-0.034) ng/mL Total Protein 6.7 (6.3-8.2) g/dL Albumin 3.9 (3.5-5.0) g/dL - NIH Stroke Scale 1a. Level of Consciousness: (0) alert 1b. LOC Questions: (0) answers correctly 1c. LOC Commands: (0) performs tasks correctly 2. Best Gaze: (0) normal 3. Visual: (0) no visual loss 4. Facial Palsy: (1) minor paralysis 5a. Motor Arm Left: (0) no drift 5b. Motor Arm Right: (0) no drift 6a. Motor Leg Left: (0) no drift 6b. Motor Leg Right: (0) no drift 7. Limb Ataxia: (0) absent 8. Sensory: (0) normal 9. Best Language: (0) no aphasia 10. Dysarthria: (0) normal 11. Extinction/Inattention: (0) no abnormality - Thrombolytic Inclusion/Exclusion Thrombolytic Contraindications: Rapidly Improving s/s - Medical Decision Making The patient demonstrates no further symptoms at this time I did a long discussion with her and her family regarding findings patient will be admitted for evaluation of TIA. She does not believe she will go through a nicotine withdrawals and does not require a nicotine patch at this time. - Radiology Data Radiology results: report reviewed, image reviewed Past Medical History Past Medical History: Coronary Artery Disease (CAD), Heart Failure, CVA/TIA, Seizure Disorder Additional Past Medical History / Comment(s): epilepsy History of Any Multi-Drug Resistant Organisms: None Reported Past Surgical History: Pacemaker Additional Past Surgical History / Comment(s): pacer. Past Anesthesia/Blood Transfusion Reactions: No Reported Reaction Type of Cardiac Device: Permanent Pacemaker Device Placement Date:: 2012 Past Psychological History: Anxiety, Depression Smoking Status: Current every day smoker Past Alcohol Use History: None Reported Past Drug Use History: None Reported - Past Family History Father Family Medical History: Coronary Artery Disease (CAD) Course Vital Signs 02/24/18 02/25/18 23:07 00:12 Temperature 98.7 F Pulse Rate 83 74 Respiratory 18 18 Rate Blood Pressure 137/84 137/85 O2 Sat by Pulse 97 97 Oximetry - Reevaluation(s) Reevaluation #1: 02/25/18 00:21 I did initially discuss the risks of smoking and the benefits of cessation with the patient the initial conversation lasting 3.1 minutes Reevaluation #2: 02/25/18 00:31 Reevaluation the patient reveals no further symptoms patient has returned to baseline. Her original NIH score was 1. This is residual from her prior strokes. Critical Care Time Critical Care Time: Yes Critical Care Time: 31 minutes of critical care time which includes initial presentation with history physical labs x-rays reevaluation patient on several occasions. Discussed with patient family regarding findings review of old imaging and lab reports. Admission orders and documentation of the above. Disposition Clinical Impression: TIA (transient ischemic attack) Disposition: ADMITTED IP TO THIS [facility] Condition: Stable Referrals: Garth Auguste MD [Primary Care Provider] - 1-2 days
[2018-02-24 23:44] LABS: ALT 40 U/L (9-52); AST 34 U/L (14-36); Albumin 3.9 g/dL (3.5-5.0); Alkaline Phosphatase 65 U/L (38-126); Anion Gap 11 mmol/L; Blood Urea Nitrogen 12 mg/dL (7-17); Calcium 8.3 mg/dL (8.4-10.2); Carbon Dioxide 24 mmol/L (22-30); Chloride 103 mmol/L (98-107); Glucose 96 mg/dL (74-99); INR 1.8 (<1.2); Partial Thromboplastin Time 24.5 sec (22.0-30.0); Prothrombin Time 16.6 sec (9.0-12.0); Sodium 138 mmol/L (137-145); Total Bilirubin 0.1 mg/dL (0.2-1.3); Total Protein 6.7 g/dL (6.3-8.2)
[2018-02-24 23:57] LABS: Creatine Kinase 171 U/L (30-135)
[2018-02-25 00:09] LABS: Creatine Kinase MB 1.1 ng/mL (0.0-2.4); Troponin I <0.012 ng/mL (0.000-0.034)
--- NOTE | 2018-02-25 00:22 | CT ---
EXAMINATION TYPE: CT brain wo con DATE OF EXAM: 02/24/2018 COMPARISON: 03/22/2017 HISTORY: Neuro deficits CT DLP: 1061.80 mGycm. Automated Exposure Control for Dose Reduction was Utilized. TECHNIQUE: CT scan of the head is performed without contrast. FINDINGS: There is hypodensity throughout the right temporal lobe extending into the right parietal lobe related to old infarct. There is also old left posterior frontal lobe cortical infarct. There i s no mass effect nor midline shift. There is no sign of intracranial hemorrhage. There is enlargement of the right lateral ventricle. The calvarium is intact. IMPRESSION: Old bilateral cortical infarcts. No acute intracranial abnormality. No change.
--- NOTE | 2018-02-25 00:23 | XR ---
EXAMINATION TYPE: XR chest 2V DATE OF EXAM: 02/24/2018 COMPARISON: 03/22/2017 HISTORY: Altered mental status TECHNIQUE: Frontal and lateral views of the chest are obtained. FINDINGS: There is no heart failure nor confluent pneumonic infiltrate. Heart size is normal. There is left axillary pacemaker with the lead tip in the right ventricle. There are chest leads. Bony thor ax appears intact. IMPRESSION: No active cardiopulmonary disease. No change.
[2018-02-25] MEDS ORDERED: ASPIRIN 325 MG TAB PO STA (00:35)
[2018-02-25] MEDS ORDERED: ALPRAZolam 0.5 MG TAB PO PRN (00:38)
[2018-02-25] MEDS ORDERED: SODIUM CHLORIDE 0.9% 1,000 ML IV SCH (00:45)
[2018-02-25 01:25] LABS: Carbamazepine (Tegretol) 10.1 ug/mL
[2018-02-25 02:11] VITALS: BMI 22.8
[2018-02-25 06:32] LABS: Basophils % (A) 0 %; Eosinophils % (A) 1 %; HCT 31.3 % (34.0-46.0); HGB 10.2 gm/dL (11.4-16.0); Lymphocytes # (A) 1.6 k/uL (1.0-4.8); Lymphocytes % (A) 39 %; MCHC 32.6 g/dL (31.0-37.0); MCV 88.8 fL (80.0-100.0); Mean Platelet Volume 7.5; Monocytes # (A) 0.3 k/uL (0-1.0); Monocytes % (A) 8 %; Neutrophils # (A) 2.1 k/uL (1.3-7.7); Neutrophils % (A) 51 %; Platelet Count 169 k/uL (150-450); RBC 3.52 m/uL (3.80-5.40); RDW 14.6 % (11.5-15.5); WBC 4.1 k/uL (3.8-10.6)
[2018-02-25 07:07] LABS: Anion Gap 10 mmol/L; Blood Urea Nitrogen 12 mg/dL (7-17); Carbon Dioxide 25 mmol/L (22-30); Chloride 104 mmol/L (98-107); Glucose 94 mg/dL (74-99); Potassium 3.7 mmol/L (3.5-5.1); Sodium 139 mmol/L (137-145)
[2018-02-25] MEDS ORDERED: CARVEDILOL 3.125 MG TAB PO SCH (07:30)
[2018-02-25] MEDS: GABAPENTIN 300 MG CAP PO SCH ×3 (08:28→19:49)
[2018-02-25] MEDS: LISINOPRIL 10 MG TAB PO SCH (08:28)
[2018-02-25] MEDS: SPIRONOLACTONE 25 MG TAB PO SCH (08:29)
[2018-02-25] MEDS: PHENYTOIN SODIUM EXTENDED 100 MG CAP PO SCH ×3 (08:29→19:49)
[2018-02-25 08:33] VITALS: RESP 16
--- NOTE | 2018-02-25 13:37 | ECHOF ---
Referral Reason:CVA MEASUREMENTS -------- HEIGHT: 167.6 cm WEIGHT: 62.1 kg BP: IVSd: 0.9 cm (0.6 - 1.1) LVIDd: 5.4 cm (3.9 - 5.3) LVPWd: 1.3 cm (0.6 - 1.1) IVSs: 1.3 cm LVIDs: 3.4 cm LVPWs: 1.5 cm LAESV Index (A-L): 34.94 ml/m Ao Diam: 3.1 cm (2.0 - 3.7) AV Cusp: 2.0 cm (1.5 - 2.6) LA Diam: 3.2 cm (2.7 - 3.8) MV EXCURSION: 17.007 mm (> 18.000) MV EF SLOPE: 63 mm/s (70 - 150) EPSS: 1.8 cm MV E Eusebio: 0.68 m/s MV DecT: 208 ms MV A Eusebio: 0.52 m/s MV E/A Ratio: 1.31 RAP: 5.00 mmHg RVSP: 23.93 mmHg FINDINGS -------- Sinus rhythm. AICD This was a technically good study. The left ventricular size is normal. There is mild concentric left ventricular hypertrophy. Overa ll left ventricular systolic function is mild-moderately impaired with, an EF between 40 - 45 %. The right ventricle is normal in size and function. LA is moderately dilated 34-39 ml/m2 The right atrium is normal in size. The aortic valve is trileaflet, and appears structurally normal. No aortic stenosis or regurgitation. Mild mitral regurgitation is present. Mild tricuspid regurgitation present. The right ventricular systolic pressure, as measured by Doppl er, is 23.93mmHg. Pulmonic valve appears structurally normal. The aortic root size is normal. Normal inferior vena cava with normal inspiratory collapse consistent with estimated right atrial pre ssure of 5 mmHg. The pericardium is normal. CONCLUSIONS -------- 1. Sinus rhythm. 2. AICD 3. This was a technically good study. 4. The left ventricular size is normal. 5. There is mild concentric left ventricular hypertrophy. 6. Overall left ventricular systolic function is mild-moderately impaired with, an EF between 40 - 45 %. 7. The right ventricle is normal in size and function. 8. LA is moderately dilated 34-39 ml/m2 9. The right atrium is normal in size. 10. The aortic valve is trileaflet, and appears structurally normal. No aortic stenosis or regurgitat ion. 11. Mild mitral regurgitation is present. 12. Mild tricuspid regurgitation present. 13. The right ventricular systolic pressure, as measured by Doppler, is 23.93mmHg. 14. Pulmonic valve appears structurally normal. 15. The aortic root size is normal. 16. Normal inferior vena cava with normal inspiratory collapse consistent with estimated right atrial pressure of 5 mmHg. 17. The pericardium is normal. COIN MACHINE COLLECTOR: Tori England RDCS
--- NOTE | 2018-02-25 14:32 | P.HPIM ---
History of Present Illness Patient about a 47-year-old female with history of severe left-sided weakness came in with complains of increased left-sided weakness which improved now patient's symptoms started around the late afternoon yesterday symptoms resolved within within the and our patient had a CT of the head which showed old stroke. Obtaining carotid Doppler, lipid panel was reviewed. Patient is on Coumadin for pulmonary embolism. Patient never had any coronary disease in the past. Patient had nonischemic any myopathy ejection fraction of 20% in the past. Echocardiac exam which were 40-40% ejection fraction patient has an AICD in place. Patient denied any fever chills nausea vomiting patient denied any headache. Patient is feeling better. Patient is not in heart failure exacerbation. Carotid Doppler is pending neurology will evaluate the patient. Patient was evaluated by PT and OT patient's strength in the left upper limb is 3-4/5 strength and 4/5 strength in the left lower limb. This apparently is her baseline. Patient does have some facial droop towards the right. Which is her baselineabnormality. No seizure-like activity. Review of Systems REVIEW OF SYSTEMS: CONSTITUTIONAL: No fever, no malaise, no fatigue. HEENT: No recent visual problems or hearing problems. Denied any sore throat. CARDIOVASCULAR: No chest pain, orthopnea, PND, no palpitations, no syncope. PULMONARY: No shortness of breath, no cough, no hemoptysis. GASTROINTESTINAL: No diarrhea, no nausea, no vomiting, no abdominal pain. Normoactive bowel sounds. NEUROLOGICAL: As mentioned in HPI HEMATOLOGICAL: Denies any bleeding or petechiae. GENITOURINARY: Denies any burning micturition, frequency, or urgency. MUSCULOSKELETAL/RHEUMATOLOGICAL: Denies any joint pain, swelling, or any muscle pain. ENDOCRINE: Denies any polyuria or polydipsia. The rest of the 14-point review of systems is negative. Past Medical History Past Medical History: Coronary Artery Disease (CAD), Heart Failure, CVA/TIA, Pulmonary Embolus (PE), Seizure Disorder Additional Past Medical History / Comment(s): epilepsy;pe in 1995 History of Any Multi-Drug Resistant Organisms: None Reported Past Surgical History: Pacemaker Additional Past Surgical History / Comment(s): pacer. Past Anesthesia/Blood Transfusion Reactions: No Reported Reaction Type of Cardiac Device: Permanent Pacemaker Device Placement Date:: 2013 Past Psychological History: Anxiety, Depression Smoking Status: Current every day smoker Past Alcohol Use History: None Reported Past Drug Use History: None Reported - Past Family History Father Family Medical History: Coronary Artery Disease (CAD) Mother Additional Family Medical History / Comment(s): cardiomyopathy Medications and Allergies Home Medications Medication Instructions Recorded Confirmed Type Atorvastatin Calcium [Lipitor] 80 mg PO HS 03/08/14 02/25/18 History Carvedilol 3.125 mg PO AC-BID 03/08/14 02/25/18 History Lisinopril [Prinivil] 10 mg PO DAILY 03/08/14 02/25/18 History Spironolactone [Aldactone] 25 mg PO DAILY 03/08/14 02/25/18 History Warfarin [Coumadin] 0.5 mg PO HS 07/09/14 02/25/18 History Donepezil [Aricept] 10 mg PO HS 07/11/14 02/25/18 History Phenytoin Sodium Extended 100 mg PO TID 07/11/14 02/25/18 History [Dilantin] Gabapentin [Gralise] 600 mg PO TID 03/22/17 02/25/18 History carBAMazepine CHEW [TEGretol Chew] 200 mg PO TID 03/22/17 02/25/18 History levETIRAcetam [Keppra] 1,500 mg PO BID 03/22/17 02/25/18 History ALPRAZolam [Xanax] 0.5 mg PO BID PRN 06/08/17 02/25/18 History Ciprofloxacin HCl [Cipro] 500 mg PO Q12HR #10 tablet 06/08/17 02/25/18 Rx Allergies Allergy/AdvReac Type Severity Reaction Status Date / Time cephalexin monohydrate Allergy Rash/Hives Verified 02/24/18 23:07 [From Keflex] Penicillins Allergy Anaphylaxis Verified 02/24/18 23:07 Physical Exam Vitals: Vital Signs Temp Pulse Pulse Resp BP BP Pulse Ox 02/25/18 11:39 16 02/25/18 08:00 98.6 F 72 16 101/56 99 02/25/18 05:19 98 F 60 18 115/62 98 02/25/18 03:34 68 17 02/25/18 03:29 98.2 F 68 17 121/58 97 02/25/18 02:31 98.5 F 62 17 110/75 95 02/25/18 01:35 98.5 F 68 17 114/68 100 02/25/18 01:27 72 18 122/71 99 02/25/18 01:10 98.5 F 68 18 114/68 100 02/25/18 00:12 74 18 137/85 97 02/24/18 23:07 98.7 F 83 18 137/84 97 Intake and Output 02/24/18 02/25/18 02/25/18 22:59 06:59 14:59 Intake Total 518 460 Output Total 225 Balance 293 460 Intake: Intake, IV Titration 100 Amount Sodium Chloride 0.9% 1, 100 000 ml @ 20 mls/hr IV . Q24H [facility] Rx#:[id number] Oral 418 460 Output: Urine 225 Other: Voiding Method Toilet Toilet # Voids 1 1 Weight 62.4 kg PHYSICAL EXAMINATION: GENERAL: The patient is alert and oriented x3, not in any acute distress. Well developed, well nourished. HEENT: Pupils are round and equally reacting to light. EOMI. No scleral icterus. No conjunctival pallor. Normocephalic, atraumatic. No pharyngeal erythema. No thyromegaly. CARDIOVASCULAR: S1 and S2 present. No murmurs, rubs, or gallops. PULMONARY: Chest is clear to auscultation, no wheezing or crackles. ABDOMEN: Soft, nontender, nondistended, normoactive bowel sounds. No palpable organomegaly. MUSCULOSKELETAL: No joint swelling or deformity. EXTREMITIES: No cyanosis, clubbing, or pedal edema. NEUROLOGICAL: As mentioned in HPI SKIN: No rashes. Results CBC & Chem 7: 02/25/18 05:58 02/25/18 05:58 Labs: Abnormal Lab Results - Last 24 Hours (Table) 02/24/18 02/24/18 02/24/18 Range/Units 23:19 23:20 23:20 RBC (3.80-5.40) m/uL Hgb 11.1 L (11.4-16.0) gm/dL Hct (34.0-46.0) % PT (9.0-12.0) sec INR (<1.2) POC Glucose (mg/dL) 104 H (75-99) mg/dL Calcium (8.4-10.2) mg/dL Total Bilirubin (0.2-1.3) mg/dL Total Creatine Kinase 171 H (30-135) U/L 02/24/18 02/24/18 02/25/18 Range/Units 23:20 23:20 05:58 RBC 3.52 L (3.80-5.40) m/uL Hgb 10.2 L (11.4-16.0) gm/dL Hct 31.3 L (34.0-46.0) % PT 16.6 H (9.0-12.0) sec INR 1.8 H (<1.2) POC Glucose (mg/dL) (75-99) mg/dL Calcium 8.3 L (8.4-10.2) mg/dL Total Bilirubin 0.1 L (0.2-1.3) mg/dL Total Creatine Kinase (30-135) U/L 02/25/18 Range/Units 05:58 RBC (3.80-5.40) m/uL Hgb (11.4-16.0) gm/dL Hct (34.0-46.0) % PT (9.0-12.0) sec INR (<1.2) POC Glucose (mg/dL) (75-99) mg/dL Calcium 8.0 L (8.4-10.2) mg/dL Total Bilirubin (0.2-1.3) mg/dL Total Creatine Kinase (30-135) U/L Thrombosis Risk Factor Assmnt - Choose All That Apply Each Factor Represents 1 point: Age 41-60 years Each Risk Factor Represents 3 Points: History of DVT/PE Thrombosis Risk Factor Assessment Total Risk Factor Score: 4 Thrombosis Risk Factor Assessment Level: Moderate Risk Assessment and Plan Plan: -Cerebrovascular accident in the past with a new TIA involving the right cerebral hemisphere: No changes in medications will be made patient will be continued on Coumadin patient is bit subtherapeutic patient's Coumadin dose will be increased to 3 mg. Neurology will evaluate the patient further workup as mentioned above -Congestive heart failure nonischemic cardiomyopathy chronic systolic dysfunction without any acute exacerbation: Patient will be continued on potassium sparing diuretic along with the lisinopril. Patient has an AICD -Hyperlipemia next and have an previous history of CVA -History of pulmonary embolism -Seizure disorder without any breakthrough seizures continue her home medications. Depression
--- NOTE | 2018-02-25 16:45 | US ---
EXAMINATION TYPE: US carotid duplex BILAT DATE OF EXAM: 02/25/2018 COMPARISON: Prior carotid Doppler duplex 03/22/2017 CLINICAL HISTORY: CVA. EXAM MEASUREMENTS: RIGHT: Peak Systolic Velocity (PSV) cm/sec ----- Right CCA: 107.0 ----- Right ICA: 109.9 ----- Right ECA: 86.2 ICA/CCA ratio: 1.0 RIGHT: End Diastole cm/sec ----- Right CCA: 28.5 ----- Right ICA: 43.0 ----- Right ECA: 15.0 LEFT: Peak Systolic Velocity (PSV) cm/sec ----- Left CCA: 169.8 ----- Left ICA: 135.7 ----- Left ECA: 79.0 ICA/CCA ratio: 0.8 LEFT: End Diastole cm/sec ----- Left CCA: 38.7 ----- Left ICA: 7.7 ----- Left ECA: 7.6 VERTEBRALS (direction of flow): Right Vertebral: Antegrade Left Vertebral: Antegrade Rhythm: Normal Mild atherosclerotic changes noted; worse at bilateral bulbs and left ICA. Grayscale, color Doppler, spectral Doppler imaging performed of the carotid arteries. IMPRESSION: No hemodynamic significant stenosis of the proximal internal carotid arteries bilaterall y by Doppler criteria, an indirect measurement of carotid stenosis
--- NOTE | 2018-02-25 17:17 | P.CNNES ---
History of Present Illness Consult date: 02/25/18 Requesting physician: Garth Auguste Reason for Consult: TIA History of Present Illness: Patient is a pleasant 47-year-old female who is being evaluated by the neurology service on 02/25/2018 per the request of Dr. Auguste for possible TIA. Patient has history of CVA in the past with residual left-sided weakness including foot drop. Patient states she was sitting at home talking on the phone and noticed her left foot went numb and she started to slur her speech. Patient states symptoms lasted approximately 2 hours. Currently she feels she is back to baseline. Patient is on warfarin in the home setting and had an INR of 1.8 on admission which is slightly subtherapeutic. CT of the brain was done which showed old bilateral cortical infarcts. No acute intracranial abnormality. Vital signs were stable on admission with blood pressure of 104/ 55. Labs included hemoglobin of 10.2, elevated total creatinine kinase of 171. Dilantin level and Tegretol levels were within normal limits. An echocardiogram was done which showed sinus rhythm. Patient does have AICD. Carotid Dopplers were done which showed no hemodynamically significant stenosis. Patient has had no return of these symptoms since admission. At the time of my evaluation, patient's resting comfortably in bed and appears to be in no acute distress. Review of Systems REVIEW OF SYSTEMS: Otherwise unremarkable and noncontributory. Past Medical History Past Medical History: Coronary Artery Disease (CAD), Heart Failure, CVA/TIA, Pulmonary Embolus (PE), Seizure Disorder Additional Past Medical History / Comment(s): epilepsy;pe in 1995 History of Any Multi-Drug Resistant Organisms: None Reported Past Surgical History: Pacemaker Additional Past Surgical History / Comment(s): pacer. Past Anesthesia/Blood Transfusion Reactions: No Reported Reaction Type of Cardiac Device: Permanent Pacemaker Device Placement Date:: 2012 Past Psychological History: Anxiety, Depression Smoking Status: Current every day smoker Past Alcohol Use History: None Reported Past Drug Use History: None Reported - Past Family History Father Family Medical History: Coronary Artery Disease (CAD) Mother Additional Family Medical History / Comment(s): cardiomyopathy Medications and Allergies Home Medications Medication Instructions Recorded Confirmed Type Atorvastatin Calcium [Lipitor] 80 mg PO HS 03/08/14 02/25/18 History Carvedilol 3.125 mg PO AC-BID 03/08/14 02/25/18 History Lisinopril [Prinivil] 10 mg PO DAILY 03/08/14 02/25/18 History Spironolactone [Aldactone] 25 mg PO DAILY 03/08/14 02/25/18 History Warfarin [Coumadin] 0.5 mg PO HS 07/09/14 02/25/18 History Donepezil [Aricept] 10 mg PO HS 07/11/14 02/25/18 History Phenytoin Sodium Extended 100 mg PO TID 07/11/14 02/25/18 History [Dilantin] Gabapentin [Gralise] 600 mg PO TID 03/22/17 02/25/18 History carBAMazepine CHEW [TEGretol Chew] 200 mg PO TID 03/22/17 02/25/18 History levETIRAcetam [Keppra] 1,500 mg PO BID 03/22/17 02/25/18 History ALPRAZolam [Xanax] 0.5 mg PO BID PRN 06/08/17 02/25/18 History Ciprofloxacin HCl [Cipro] 500 mg PO Q12HR #10 tablet 06/08/17 02/25/18 Rx Allergies Allergy/AdvReac Type Severity Reaction Status Date / Time cephalexin monohydrate Allergy Rash/Hives Verified 02/24/18 23:07 [From Keflex] Penicillins Allergy Anaphylaxis Verified 02/24/18 23:07 Physical Examination - Vital Signs Vital Signs: Vital Signs Temp Pulse Pulse Resp BP BP Pulse Ox 02/25/18 15:51 16 02/25/18 12:00 73 16 104/55 97 02/25/18 11:39 16 02/25/18 08:00 98.6 F 72 16 101/56 99 02/25/18 05:19 98 F 60 18 115/62 98 02/25/18 03:34 68 17 02/25/18 03:29 98.2 F 68 17 121/58 97 02/25/18 02:31 98.5 F 62 17 110/75 95 02/25/18 01:35 98.5 F 68 17 114/68 100 02/25/18 01:27 72 18 122/71 99 02/25/18 01:10 98.5 F 68 18 114/68 100 02/25/18 00:12 74 18 137/85 97 02/24/18 23:07 98.7 F 83 18 137/84 97 Intake and Output 02/25/18 02/25/18 02/25/18 06:59 14:59 22:59 Intake Total 518 460 Output Total 225 Balance 293 460 Intake: Intake, IV Titration 100 Amount Sodium Chloride 0.9% 1, 100 000 ml @ 20 mls/hr IV . Q24H [facility] Rx#:[id number] Oral 418 460 Output: Urine 225 Other: Voiding Method Toilet Toilet Toilet # Voids 1 1 Weight 62.4 kg PHYSICAL EXAM: GENERAL APPEARANCE: Patient is a well-developed, female who appears to be in no acute distress. HEENT: Normocephalic, atraumatic, mild left facial asymmetry is seen. Neck is supple with no masses felt. CARDIOVASCULAR: Regular rate and rhythm. ABDOMEN: Nontender, nondistended. EXTREMITIES: Show no edema or clubbing. NEUROLOGICAL EXAM: Patient is awake, alert, and oriented 3. Speech and language are normal. Strength is 5-/5 in left upper and lower extremity and 5/ 5 in right upper and lower extremity. Mild left facial droop noted on cranial nerve testing which is chronic from last stroke. Sensory exam is diminished to left lower extremity. No tremors or seizure-like activity noted. No pronator drift noted. Results - Laboratory Findings CBC and BMP: 02/25/18 05:58 02/25/18 05:58 Abnormal Lab Findings: Abnormal Labs 02/24/18 02/24/18 02/24/18 23:19 23:20 23:20 RBC Hgb 11.1 L Hct PT INR POC Glucose (mg/dL) 104 H Calcium Total Bilirubin Total Creatine Kinase 171 H 02/24/18 02/24/18 02/25/18 23:20 23:20 05:58 RBC 3.52 L Hgb 10.2 L Hct 31.3 L PT 16.6 H INR 1.8 H POC Glucose (mg/dL) Calcium 8.3 L Total Bilirubin 0.1 L Total Creatine Kinase 02/25/18 05:58 RBC Hgb Hct PT INR POC Glucose (mg/dL) Calcium 8.0 L Total Bilirubin Total Creatine Kinase Assessment and Plan Plan: Impression: 1. TIA 2. History of CVA with left hemiparesis 3. Seizure disorder 4. CHF/AICD Recommendation: It appears patient had transient ischemic attack with transient episode of left foot numbness and slurred speech. Episode lasted approximately 2 hours. Patient feels she is back to baseline now. As mentioned above, CT of the brain was negative for any acute process. Carotid Dopplers were negative for any hemodynamically significant stenosis. No return of symptoms. I recommend increasing warfarin to achieve INR between 2.0 and 3.0. Patient is stable from a neurological standpoint for discharge. She is to follow up in the office in 2-3 weeks. I will continue to follow with you on an as-needed basis. Thank you for allowing me to participate in the care of your patient. Feel free to call with any questions or concerns. I performed an examination of the patient and discussed the management with the [employer]. I have reviewed the [employer] notes and agree with the findings and plan of care.
[2018-02-25] MEDS ORDERED: WARFARIN 3 MG TAB PO SCH (18:00)
[2018-02-25] MEDS ORDERED: WARFARIN 2.5 MG TAB PO SCH (18:00)
[2018-02-25] MEDS: METOPROLOL TARTRATE 12.5 MG TAB PO SCH (19:49)
[2018-02-25] MEDS ORDERED: DONEPEZIL 10 MG TAB PO SCH (21:00)
[2018-02-25] MEDS ORDERED: ATORVASTATIN 80 MG TAB PO SCH (21:00)
[2018-02-26 02:25] LABS: Cholesterol 130 mg/dL (<200); HDL Cholesterol 45 mg/dL (40-60); LDL Cholesterol,Calculated 76 mg/dL (0-99); Triglycerides 44 mg/dL (<150)
[2018-02-26 07:36] VITALS: BP 116/66; PULSE 81; TEMP 98.4
[2018-02-26] MEDS: GABAPENTIN 300 MG CAP PO SCH (08:41)
[2018-02-26] MEDS: METOPROLOL TARTRATE 12.5 MG TAB PO SCH (08:41)
[2018-02-26] MEDS: SPIRONOLACTONE 25 MG TAB PO SCH (08:41)
[2018-02-26] MEDS: LISINOPRIL 10 MG TAB PO SCH (08:42)
[2018-02-26] MEDS: PHENYTOIN SODIUM EXTENDED 100 MG CAP PO SCH (08:42)
[2018-02-26] MEDS ORDERED: ASPIRIN 325 MG TAB PO SCH (09:00)
--- NOTE | 2018-02-26 13:23 | P.DS ---
Providers Date of admission: 02/25/18 00:35 Attending physician: Garth Auguste Consults: 02/25/18 00:37 Consult Physician Routine Consulting Provider: Uma Roberts Consult Reason/Comments: TIA Do you want consulting provider notified?: Yes, Notify in am Primary care physician: Garth Auguste Hospital Course: 47-year-old female admitted with left sided weakness which improved after a few hours. Patient is at her baseline patient does have history of pulmonary embolism the past because of which patient is on Coumadin her INR so substituted patient takes 2.5 mg of Coumadin at home patient will require 3 mg but patient is not willing to increase her dose of Coumadin until she has another recheck of INR in neck stroke to 3 days which is reasonable. I'll reorder repeat INR in about 3 days follow-up with Dr. Auguste as an outpatient and titration of her Coumadin has with INR next 3 days. Her INR yesterday was 1.8 was given at 3 mg yesterday patient will be given another 3 mg of Coumadin today. Carotid Doppler did not show any significant abnormality echocardiogram showed improved ejection fraction to 40-45%. Previous EF was around 20% patient had nonischemic cardiomyopathy.left upper limb is 3-4/5 strength and 4/ 5 strength in the left lower limb. This is her baseline. Patient the will be discharged today with home care and home PT PHYSICAL EXAMINATION: GENERAL: The patient is alert and oriented x3, not in any acute distress. Well developed, well nourished. HEENT: Pupils are round and equally reacting to light. EOMI. No scleral icterus. No conjunctival pallor. Normocephalic, atraumatic. No pharyngeal erythema. No thyromegaly. CARDIOVASCULAR: S1 and S2 present. No murmurs, rubs, or gallops. PULMONARY: Chest is clear to auscultation, no wheezing or crackles. ABDOMEN: Soft, nontender, nondistended, normoactive bowel sounds. No palpable organomegaly. MUSCULOSKELETAL: No joint swelling or deformity. EXTREMITIES: No cyanosis, clubbing, or pedal edema. NEUROLOGICAL: As mentioned in HPI SKIN: No rashes. Assessment and Plan Plan: -Cerebrovascular accident in the past with a new TIA involving the right cerebral hemisphere: -Congestive heart failure nonischemic cardiomyopathy chronic systolic dysfunction without any acute exacerbation: Patient will be continued on potassium sparing diuretic along with the lisinopril. Patient has an AICD -Hyperlipemia previous history of CVA -History of pulmonary embolism -Seizure disorder without any breakthrough seizures continue her home medications. Depression Patient Condition at Discharge: Stable Plan - Discharge Summary Discharge Rx Participant: No New Discharge Prescriptions: Continue Spironolactone [Aldactone] 25 mg PO DAILY Carvedilol 3.125 mg PO AC-BID Atorvastatin Calcium [Lipitor] 80 mg PO HS Lisinopril [Prinivil] 10 mg PO DAILY Phenytoin Sodium Extended [Dilantin] 100 mg PO TID Donepezil [Aricept] 10 mg PO HS levETIRAcetam [Keppra] 1,500 mg PO BID carBAMazepine CHEW [TEGretol Chew] 200 mg PO TID Gabapentin [Gralise] 600 mg PO TID ALPRAZolam [Xanax] 0.5 mg PO BID PRN PRN Reason: Anxiety Changed Warfarin [Coumadin] 2.5 mg PO HS #0 Discontinued Ciprofloxacin HCl [Cipro] 500 mg PO Q12HR #10 tablet Discharge Medication List Atorvastatin Calcium [Lipitor] 80 mg PO HS 03/08/14 [History] Carvedilol 3.125 mg PO AC-BID 03/08/14 [History] Lisinopril [Prinivil] 10 mg PO DAILY 03/08/14 [History] Spironolactone [Aldactone] 25 mg PO DAILY 03/08/14 [History] Donepezil [Aricept] 10 mg PO HS 07/11/14 [History] Phenytoin Sodium Extended [Dilantin] 100 mg PO TID 07/11/14 [History] Gabapentin [Gralise] 600 mg PO TID 03/22/17 [History] carBAMazepine CHEW [TEGretol Chew] 200 mg PO TID 03/22/17 [History] levETIRAcetam [Keppra] 1,500 mg PO BID 03/22/17 [History] ALPRAZolam [Xanax] 0.5 mg PO BID PRN 06/08/17 [History] Warfarin [Coumadin] 2.5 mg PO HS #0 02/26/18 [Rx] Follow up Appointment(s)/Referral(s): Garth Auguste MD [Primary Care Provider] - 3 Days Ambulatory/Diagnostic Orders: Prothrombin Time INR [LAB.AMB] Time Frame: 3 Days, Location: None Selected Discharge Disposition: HOME SELF-CARE
== END 2018-02-26 16:11 | disposition home or self-care (01) | DRG 69 ==
LOC: EC 22:59 → 6SEL 02-25 00:35
PROVIDERS: ADMIT Family Medicine; ATTEND Family Medicine
DX: G45.9 Transient cerebral ischemic attack, unspecified (principal); I42.9 Cardiomyopathy, unspecified; I50.22 Chronic systolic (congestive) heart failure; I69.354 Hemiplegia and hemiparesis following cerebral infarction affecting left non-dominant side; E78.5 Hyperlipidemia, unspecified; F17.200 Nicotine dependence, unspecified, uncomplicated; F32.9 Major depressive disorder, single episode, unspecified; F41.9 Anxiety disorder, unspecified; G40.909 Epilepsy, unspecified, not intractable, without status epilepticus; I25.10 Atherosclerotic heart disease of native coronary artery without angina pectoris; Z86.711 Personal history of pulmonary embolism; Z95.810 Presence of automatic (implantable) cardiac defibrillator; Z79.01 Long term (current) use of anticoagulants; Z79.899 Other long term (current) drug therapy; Z82.49 Family history of ischemic heart disease and other diseases of the circulatory system; R47.81 Slurred speech; Z88.1 Allergy status to other antibiotic agents; R29.701 NIHSS score 1
CPT/HCPCS: 36415; 70450; 71046; 80048; 80053; 80061; 80156; 80185; 82550; 82553; 84484; 85025; 85610; 85730; 93005; 93306; 93880; 96360; 99291

== ENCOUNTER → 2018-06-26 | Outpatient (CLI) | payer MEDICARE ==
[2018-06-26 16:17] LABS: Carbamazepine (Tegretol) 4.9 ug/mL (4.0-12.0); Phenytoin (Dilantin) 7.8 ug/mL (10.0-20.0)
[2018-06-26 18:09] LABS: LDL Cholesterol,Calculated 95.2 mg/dL (0.0-131.0); VLDL Calculation 10.8 mg/dL (5.00-40.00)
== END | disposition home or self-care (01) ==
LOC: LABWHC1 10:10
PROVIDERS: ATTEND Psychiatry & Neurology Pain Medicine
DX: G40.909 Epilepsy, unspecified, not intractable, without status epilepticus (principal); Z51.81 Encounter for therapeutic drug level monitoring
CPT/HCPCS: 36415; 80061; 80156; 80177; 80185

== ENCOUNTER → 2018-08-08 | Outpatient (CLI) | payer MEDICARE ==
[2018-08-08 17:19] LABS: Carbamazepine (Tegretol) 5.4 ug/mL (4.0-12.0); Phenytoin (Dilantin) 8.2 ug/mL (10.0-20.0)
== END ==
LOC: LABWHC1 08:47
PROVIDERS: ATTEND Psychiatry & Neurology Pain Medicine
DX: G40.909 Epilepsy, unspecified, not intractable, without status epilepticus (principal)
CPT/HCPCS: 36415; 80156; 80177; 80185

== ENCOUNTER 2019-02-20 22:19 | Observation (INO) | payer MEDICARE ==
--- NOTE | 2019-02-20 22:44 | ED ---
General Adult HPI - General Chief complaint: Neuro Symptoms/Deficit Stated complaint: Dizziness Time Seen by Provider: 02/20/19 22:33 Source: patient Mode of arrival: ambulatory Limitations: no limitations - History of Present Illness Initial comments: Dictation was produced using [employer] dictation software. please excuse any grammatical, word or spelling errors. Chief Complaint: 48-year-old female past medical history of CVA with residual left-sided deficit, pulmonary embolus, seizure disorder, coronary artery disease presents with difficulty ambulating and left lower extremity numbness. History of Present Illness: 48-year-old female she has residual left upper extremity and left lower extremity sensory deficit. She was in court today and had difficulty walking. She allegedly does not have any difficulties with ambulation. She states that she came to the emergency department because she is worried her stroke was coming back. Patient states her stroke was back in 2007. She was not given TPA at that time. Her neurologist is Dr. Roberts. Patient is on multiple medications. Patient has never had an episode like this. Patient otherwise feels some mild symptoms to her left anterior leg. Patient also complains of residual water deficits to the left strawberries. Denies any fever, chills or night sweats. Patient said her usual state of health otherwise. The ROS documented in this emergency department record has been reviewed and confirmed by me. Those systems with pertinent positive or negative responses have been documented in the HPI. All other systems are other negative and/or noncontributory. PHYSICAL EXAM: General Impression: Alert and oriented x3, not in acute distress HEENT: Normocephalic atraumatic, extra-ocular movements intact, pupils equal and reactive to light bilaterally, mucous membranes moist. Cardiovascular: Heart regular rate and rhythm, S1&S2 audible, no murmurs, rubs or gallops Chest: Lungs clear to auscultation bilaterally, no rhonchi, no wheeze, no rales Abdomen: Bowel sounds present, abdomen soft, non-tender, non-distended, no organomegaly Musculoskeletal: Pulses present and equal in all extremities, no peripheral edema Motor: no focal deficits noted Neurological: CN II-XII grossly intact, no focal motor or sensory deficits noted Skin: Intact with no visualized rashes Psych: Normal affect and mood ED course: 48-year-old female presents with strokelike symptoms. Patient's concerned about her left lower extremity deficit. She normally has deficits to her left upper and left lower extremity. Patient given initial NIH of 1 for mild sensory deficit to the left lower extremity. No drift appreciated. Patient is not aphasic. She is not ataxic. Code stroke is not page given that patient's symptoms onset with her usual symptoms. Patient reports slight deficit to touch however she typically has deficits that area. Her delta NIH is 0. - Related Data Home Medications Medication Instructions Recorded Confirmed Atorvastatin Calcium [Lipitor] 80 mg PO HS 03/08/14 02/25/18 Carvedilol 3.125 mg PO AC-BID 03/08/14 02/25/18 Lisinopril [Prinivil] 10 mg PO DAILY 03/08/14 02/25/18 Spironolactone [Aldactone] 25 mg PO DAILY 03/08/14 02/25/18 Donepezil [Aricept] 10 mg PO HS 07/11/14 02/25/18 Phenytoin Sodium Extended 100 mg PO TID 07/11/14 02/25/18 [Dilantin] Gabapentin [Gralise] 600 mg PO TID 03/22/17 02/25/18 carBAMazepine CHEW [TEGretol Chew] 200 mg PO TID 03/22/17 02/25/18 levETIRAcetam [Keppra] 1,500 mg PO BID 03/22/17 02/25/18 ALPRAZolam [Xanax] 0.5 mg PO BID PRN 06/08/17 02/25/18 Previous Rx's Medication Instructions Recorded Warfarin [Coumadin] 2.5 mg PO HS #0 02/26/18 Allergies Allergy/AdvReac Type Severity Reaction Status Date / Time cephalexin monohydrate Allergy Rash/Hives Verified 02/20/19 22:31 [From Keflex] Penicillins Allergy Anaphylaxis Verified 02/20/19 22:31 Review of Systems ROS Statement: Those systems with pertinent positive or pertinent negative responses have been documented in the HPI. ROS Other: All systems not noted in ROS Statement are negative. Past Medical History Past Medical History: Coronary Artery Disease (CAD), Heart Failure, CVA/TIA, Pulmonary Embolus (PE), Seizure Disorder Additional Past Medical History / Comment(s): epilepsy;pe in 1995 History of Any Multi-Drug Resistant Organisms: None Reported Past Surgical History: Pacemaker Additional Past Surgical History / Comment(s): pacer. Past Anesthesia/Blood Transfusion Reactions: No Reported Reaction Type of Cardiac Device: Permanent Pacemaker Device Placement Date:: 2012 Past Psychological History: Anxiety, Depression Smoking Status: Current every day smoker Past Alcohol Use History: None Reported Past Drug Use History: None Reported - Past Family History Father Family Medical History: Coronary Artery Disease (CAD) Mother Additional Family Medical History / Comment(s): cardiomyopathy General Exam Limitations: no limitations Course Vital Signs 02/20/19 22:28 Temperature 98.6 F Pulse Rate 85 Respiratory 18 Rate Blood Pressure 106/64 O2 Sat by Pulse 96 Oximetry Disposition Referrals: Garth Auguste MD [Primary Care Provider] - 1-2 days
[2019-02-20 22:55] LABS: Basophils % (A) 1 %; Eosinophils # (A) 0.1 k/uL (0-0.7); Eosinophils % (A) 2 %; HCT 39.3 % (34.0-46.0); HGB 12.8 gm/dL (11.4-16.0); Lymphocytes # (A) 1.4 k/uL (1.0-4.8); Lymphocytes % (A) 31 %; MCH 29.9 pg (25.0-35.0); MCHC 32.6 g/dL (31.0-37.0); MCV 91.6 fL (80.0-100.0); Monocytes # (A) 0.2 k/uL (0-1.0); Monocytes % (A) 5 %; Neutrophils # (A) 2.7 k/uL (1.3-7.7); Neutrophils % (A) 59 %; Platelet Count 217 k/uL (150-450); RBC 4.29 m/uL (3.80-5.40); WBC 4.6 k/uL (3.8-10.6)
--- NOTE | 2019-02-21 04:20 | XR ---
EXAM: XR Chest, 1 View CLINICAL HISTORY: Dizziness and altered mental status. Hx of CVA, CAD, CHF and everyday smoker. Previous CXR on 02-24-18. TECHNIQUE: Frontal view of the chest. COMPARISON: 03/22/2017 FINDINGS: Lungs: Unremarkable. No consolidation. Pleural space: Unremarkable. No pneumothorax. Heart: Stable cardiomediastinal silhouette. Mediastinum: See above. Bones/joints: No acute osseous abnormality. Tubes, lines and devices: Stable left chest wall AICD. Upper abdomen: Persistent elevation of the left hemidiaphragm. IMPRESSION: No acute cardiopulmonary process.
[2019-02-21 04:43] LABS: Prothrombin Time 29.2 sec (9.0-12.0)
[2019-02-21 04:44] LABS: African American GFR (CKD) >90 (>60 ml/min/1.73 sqM); Albumin 4.1 g/dL (3.5-5.0); Anion Gap 8 mmol/L; Blood Urea Nitrogen 11 mg/dL (7-17); Calcium 8.2 mg/dL (8.4-10.2); Carbon Dioxide 25 mmol/L (22-30); Chloride 103 mmol/L (98-107); Glucose 98 mg/dL (74-99); Sodium 136 mmol/L (137-145); Total Bilirubin 0.4 mg/dL (0.2-1.3); Total Protein 7.2 g/dL (6.3-8.2)
[2019-02-21 05:39] LABS: ALT 18 U/L (9-52); AST 26 U/L (14-36); Alkaline Phosphatase 86 U/L (38-126); Potassium 3.9 mmol/L (3.5-5.1)
--- NOTE | 2019-02-21 06:26 | CT ---
EXAM: CT Head Without Intravenous Contrast CLINICAL HISTORY: Altered mental status TECHNIQUE: Axial computed tomography images of the head/brain without intravenous contrast. DLP is 1137.40 mGy-cm. This CT exam was performed using one or more of the following dose reduction techniques: automated exposure control, adjustment of the mA and/or kV according to patient size, and/or use of iterative reconstruction technique. COMPARISON: 02/24/2018 FINDINGS: Brain: No acute intracranial hemorrhage, large acute territorial infarct, or significant mass effect. Encephalomalacia is present in the right middle cerebral artery territory, left frontal lobe, and right parietal lobe. Ventricles: Unremarkable. No ventriculomegaly. Bones/joints: Unremarkable. No acute fracture. Soft tissues: Unremarkable. Sinuses: Retention cyst versus polyp in the left maxillary sinus. Mastoid air cells: Unremarkable. IMPRESSION: No acute intracranial abnormality. No significant change since prior exam.
[2019-02-21] MEDS ORDERED: ALPRAZolam 0.5 MG TAB PO PRN (10:28)
[2019-02-21 10:50] VITALS: BMI 20.7
[2019-02-21] MEDS: GABAPENTIN 300 MG CAP PO SCH ×3 (13:58→22:19)
[2019-02-21] MEDS: PHENYTOIN SODIUM EXTENDED 100 MG CAP PO SCH ×2 (17:20→22:19)
[2019-02-21] MEDS: carBAMazepine 200 MG TAB PO SCH ×2 (17:20→22:19)
[2019-02-21] MEDS: CARVEDILOL 3.125 MG TAB PO SCH (17:20)
[2019-02-21] MEDS: DONEPEZIL 10 MG TAB PO SCH (20:14)
[2019-02-21] MEDS: ATORVASTATIN 80 MG TAB PO SCH (20:14)
[2019-02-21] MEDS ORDERED: WARFARIN 2.5 MG TAB PO SCH (21:00)
--- NOTE | 2019-02-21 22:33 | P.HPIM ---
History of Present Illness H&P Date: 02/21/19 Chief Complaint: Left leg weakness Patient is a 48-year-old female with a known history of CVA/TIA with no residual weakness in 2007, history of pulmonary embolism on long-term anticoagulation, seizure disorder, permanent pacemaker placement and anxiety/depression came to ER for further evaluation of left lower extremity weakness. Patient says that she [place] [facility] [place] and suddenly noticed that her left leg is heavy and weak. Patient came to ER for further evaluation. Symptoms lasted for about an hour. No associated headache or dizziness or lightheadedness. No nausea vomiting or abdominal pain. No recent illnesses. Patient follows with Dr. Roberts as an outpatient neurology clinic. Left lower activity weakness is much improved now. Denied any fever or chills. No dysuria or hematuria. No hematemesis or melena. CT head showed no acute abnormalities. No changes from prior study. Chest x-ray negative. EKG showed normal sinus rhythm. INR 3.0 Review of Systems Constitutional: Patient denies any fever or chills . No generalized weakness or weight loss. Abdomen: Patient denied nausea vomiting and diarrhea and abdominal pain. Cardiovascular: Patient denies any chest pain or short of breath no palpitations. Respiratory: patient denied any cough is from production. No shortness of rock ath Neurologic: Patient denied any numbness or tingling headache. Musculoskeletal: Patient denies any complaints of joint swelling or deformity. Skin: Negative Psychiatric: Negative Endocrine: No heat or cold intolerance. No recent weight gain. Genitourinary: No dysuria or hematuria. All other 14 point ROS negative except the above Past Medical History Past Medical History: Coronary Artery Disease (CAD), Heart Failure, CVA/TIA, Pulmonary Embolus (PE), Seizure Disorder Additional Past Medical History / Comment(s): epilepsy;pe in 1995 History of Any Multi-Drug Resistant Organisms: None Reported Past Surgical History: Pacemaker Additional Past Surgical History / Comment(s): pacer. Past Anesthesia/Blood Transfusion Reactions: No Reported Reaction Type of Cardiac Device: Permanent Pacemaker Device Placement Date:: 2012 Past Psychological History: Anxiety, Depression Smoking Status: Current every day smoker Past Alcohol Use History: None Reported Past Drug Use History: None Reported - Past Family History Father Family Medical History: Coronary Artery Disease (CAD) Mother Additional Family Medical History / Comment(s): cardiomyopathy Medications and Allergies Home Medications Medication Instructions Recorded Confirmed Type Atorvastatin Calcium [Lipitor] 80 mg PO HS 03/08/14 02/20/19 History Carvedilol 3.125 mg PO AC-BID 03/08/14 02/20/19 History Lisinopril [Prinivil] 10 mg PO DAILY 03/08/14 02/20/19 History Spironolactone [Aldactone] 25 mg PO DAILY 03/08/14 02/20/19 History Donepezil [Aricept] 10 mg PO HS 07/11/14 02/20/19 History Phenytoin Sodium Extended 100 mg PO TID 07/11/14 02/20/19 History [Dilantin] levETIRAcetam [Keppra] 1,500 mg PO BID 03/22/17 02/20/19 History ALPRAZolam [Xanax] 0.5 mg PO BID PRN 06/08/17 02/20/19 History Warfarin [Coumadin] 2.5 mg PO HS #0 02/26/18 02/20/19 Rx Gabapentin 600 mg PO TID 02/20/19 02/20/19 History carBAMazepine [TEGretol] 200 mg PO TID 02/20/19 02/20/19 History Allergies Allergy/AdvReac Type Severity Reaction Status Date / Time cephalexin monohydrate Allergy Rash/Hives Verified 02/20/19 22:47 [From Keflex] Penicillins Allergy Anaphylaxis Verified 02/20/19 22:47 Physical Exam Vitals: Vital Signs Temp Pulse Pulse Resp BP BP Pulse Ox 02/21/19 10:55 98.4 F 75 18 95/54 02/21/19 10:05 70 18 103/60 97 02/21/19 08:52 62 18 93/55 100 02/21/19 07:10 98.4 F 64 18 121/70 100 02/21/19 06:23 97.8 F 64 16 102/70 98 02/21/19 05:10 98.0 F 62 16 95/60 97 02/20/19 22:48 78 18 122/76 98 02/20/19 22:28 98.6 F 85 18 106/64 96 Intake and Output 02/21/19 02/21/19 02/21/19 06:59 14:59 22:59 Intake Total 462 Balance 462 Intake: Oral 462 PHYSICAL EXAMINATION: Patient is lying in the bed comfortably, no acute distress, awake alert and oriented.. HEENT: Normocephalic. Neck is supple. Pupils reactive. Nostrils clear. Oral c avity is moist. Ears reveal no drainage. Neck reveals no JVD, carotid bruits, or thyromegaly. CHEST EXAMINATION: Trachea is central. Symmetrical expansion. Lung shetty clear to auscultation and percussion. CARDIAC: Normal S1, S2 with no gallops. No murmurs ABDOMEN: Soft. Bowel sounds normal. No organomegaly. No abdominal bruits. Extremities: reveal no edema. No clubbing or cyanosis Neurologically awake, alert, oriented x3 with well-coordinated movements. No focal deficits noted. Motor 5 x 5 on all extremities. Skin: No rash or skin lesions. Psychiatric: Coperative. Nonsuicidal Musculoskeletal: No joint swelling or deformity. Normal range of motion. Results CBC & Chem 7: 02/20/19 22:46 02/20/19 22:46 Labs: Abnormal Lab Results - Last 24 Hours (Table) 02/20/19 02/20/19 Range/Units 22:46 22:46 PT 29.2 H (9.0-12.0) sec INR 3.0 H (<1.2) APTT 34.0 H (22.0-30.0) sec Sodium 136 L (137-145) mmol/L Creatinine 0.48 L (0.52-1.04) mg/dL Calcium 8.2 L (8.4-10.2) mg/dL Thrombosis Risk Factor Assmnt - DVT/VTE Prophylaxis DVT/VTE Prophylaxis: Pharmacologic Prophylaxis ordered - Choose All That Apply Any of the Below Risk Factors Present?: Yes Each Factor Represents 1 point: Age 41-60 years Other Risk Factors: No Other congenital or acquired thrombophilia - If yes, enter type in comment: No Thrombosis Risk Factor Assessment Total Risk Factor Score: 1 Thrombosis Risk Factor Assessment Level: Low Risk Assessment and Plan Assessment: Left lower extremities weakness likely due to TIA. Improved now. Previous history of CVA in 2007 with no residual weakness.. No TPA was given at the time. History of pulmonary embolism on long-term anticoagulation Seizure disorder History of permanent pacemaker placement Nicotine addiction DVT prophylaxis Plan: patient will be continued on telemetry monitoring. Patient is on day correlation with Coumadin. INR is 3.0, in therapeutic range. Neurology will be consulted for further evaluation. Start back on her current home medications, except level pressure medications. Continue with neuro checks and fall precautions.. Time with Patient: Greater than 30
[2019-02-22] MEDS: CARVEDILOL 3.125 MG TAB PO SCH ×2 (06:20→16:42)
[2019-02-22 06:46] LABS: African American GFR (CKD) >90 (>60 ml/min/1.73 sqM); Anion Gap 5 mmol/L; Blood Urea Nitrogen 12 mg/dL (7-17); Calcium 8.1 mg/dL (8.4-10.2); Carbon Dioxide 27 mmol/L (22-30); Chloride 107 mmol/L (98-107); Glucose 100 mg/dL (74-99); Potassium 4.5 mmol/L (3.5-5.1); Sodium 139 mmol/L (137-145)
[2019-02-22] MEDS: GABAPENTIN 300 MG CAP PO SCH ×3 (09:36→21:25)
[2019-02-22] MEDS: SPIRONOLACTONE 25 MG TAB PO SCH (09:36)
[2019-02-22] MEDS: carBAMazepine 200 MG TAB PO SCH ×3 (09:37→21:26)
[2019-02-22] MEDS: PHENYTOIN SODIUM EXTENDED 100 MG CAP PO SCH ×3 (09:37→21:26)
[2019-02-22 12:11] LABS: Prothrombin Time 51.2 sec (9.0-12.0)
[2019-02-22 12:26] LABS: INR 5.3 (<1.2)
--- NOTE | 2019-02-22 13:08 | P.CNNES ---
History of Present Illness Consult date: 02/22/19 Requesting physician: Guevara Granados Reason for Consult: TIA Chief complaint: LLE weakness x 3 hours History of Present Illness: This is a 48 RH female h/o PE on warfarin with therapeutic INR at 3.0 on admission and seizure disorder on multiple AEDs including PHT, CBZ and LEV stable with her last seizure 9 years ago. Her seizure type is GTC. Patient states that on the day of admission, she experienced sudden onset of LLE weakness that lasted 3 hours. There was no numbness or paresthesias. She has chronic sciatica that gives her LE pain on and off, but her pain was not worse yesterday. The RLE was not weak yesterday, and neither were her BUE. No other neuro c/o such as head/neck trauma, decreased level or loss of consciousness, headache, changes in vision, diplopia, amaurosis, facial numbness or droop, vertigo, dysarthria, dysphagia, aphasia, tremors, bowel/bladder incontinence, seizure-like activity or ataxia. Of note, patient states that she had a stroke in the past. The symptom that she could remember was headache. She was told that she had a stroke afterwards. She cannot have an MRI due to pacemaker. Review of Systems I have performed a 14-point organ ROS with patient that are negative except as per HPI. Past Medical History Past Medical History: Coronary Artery Disease (CAD), Heart Failure, CVA/TIA, Pulmonary Embolus (PE), Seizure Disorder Additional Past Medical History / Comment(s): epilepsy;pe in 1995 History of Any Multi-Drug Resistant Organisms: None Reported Past Surgical History: Pacemaker Additional Past Surgical History / Comment(s): pacer. Past Anesthesia/Blood Transfusion Reactions: No Reported Reaction Type of Cardiac Device: Permanent Pacemaker Device Placement Date:: 2012 Past Psychological History: Anxiety, Depression Smoking Status: Current every day smoker Past Alcohol Use History: None Reported Past Drug Use History: None Reported - Past Family History Father Family Medical History: Coronary Artery Disease (CAD) Mother Additional Family Medical History / Comment(s): cardiomyopathy Medications and Allergies Home Medications Medication Instructions Recorded Confirmed Type Atorvastatin Calcium [Lipitor] 80 mg PO HS 03/08/14 02/20/19 History Carvedilol 3.125 mg PO AC-BID 03/08/14 02/20/19 History Lisinopril [Prinivil] 10 mg PO DAILY 03/08/14 02/20/19 History Spironolactone [Aldactone] 25 mg PO DAILY 03/08/14 02/20/19 History Donepezil [Aricept] 10 mg PO HS 07/11/14 02/20/19 History Phenytoin Sodium Extended 100 mg PO TID 07/11/14 02/20/19 History [Dilantin] levETIRAcetam [Keppra] 1,500 mg PO BID 03/22/17 02/20/19 History ALPRAZolam [Xanax] 0.5 mg PO BID PRN 06/08/17 02/20/19 History Warfarin [Coumadin] 2.5 mg PO HS #0 02/26/18 02/20/19 Rx Gabapentin 600 mg PO TID 02/20/19 02/20/19 History carBAMazepine [TEGretol] 200 mg PO TID 02/20/19 02/20/19 History Allergies Allergy/AdvReac Type Severity Reaction Status Date / Time cephalexin monohydrate Allergy Rash/Hives Verified 02/20/19 22:47 [From Keflex] Penicillins Allergy Anaphylaxis Verified 02/20/19 22:47 Physical Examination - Vital Signs Vital Signs: Vital Signs Temp Pulse Resp BP Pulse Ox 02/22/19 07:50 97.9 F 68 18 100/66 97 02/22/19 04:00 97 F L 76 16 111/69 96 02/22/19 00:00 99.4 F 64 16 111/60 99 02/21/19 20:00 98.7 F 65 16 100/57 99 02/21/19 16:30 98.7 F 65 18 102/63 98 Intake and Output 02/21/19 02/22/19 02/22/19 22:59 06:59 14:59 Intake Total 222 200 718 Balance 222 200 718 Intake: Oral 222 200 718 Other: # Voids 1 2 3 Weight 57.9 kg Gen NAD Pleasant and cooperative HEENT NCAT Sclera without icterus O/P clear Neck Supple No carotid bruit Cor RRR no m/r/g Lungs CTAB Abd Soft NTND +BS Ext Warm to touch No edema Neuro MS A+Ox4 Normal fluency Able to follow all commands CN PERRL VFF no APD EOMI no nystagmus or ELLY No facial asymmetry Masseter's symmetric Hearing intact to normal voice bilaterally Speech not dysarthric Equal elevation of palate Tongue midline Sym shrug and SCM bilaterally Motor Normal bulk/tone No pronator or leg drift No tremors Strength 5/5 sym throughout Sens Intact to LT x4 No neglect or extinction Coord No dysmetria on FTN bilaterally DTRs 2+/4 sym throughout Toes downgoing bilaterally No clonus at achilles Gait Deferred NIHSS 0 Results - Laboratory Findings CBC and BMP: 02/20/19 22:46 02/22/19 06:02 Abnormal Lab Findings: Abnormal Labs 02/20/19 02/20/19 02/22/19 22:46 22:46 06:02 PT 29.2 H INR 3.0 H APTT 34.0 H Sodium 136 L Creatinine 0.48 L Glucose 100 H Calcium 8.2 L 8.1 L 02/22/19 06:02 PT 51.2 H INR 5.3 H* APTT Sodium Creatinine Glucose Calcium - Diagnostic Findings Additional findings: CT Head wo cont 02/20/19. Nil acute. Carotid duplex 01/2018. No anterior circulation stenosis. TTE 01/2018. LAE EF 40-45% I have reviewed all neuroimages myself. Assessment and Plan Assessment: Possible TIA on therapeutic anticoagulation Seizure disorder, stable on AED therapy Plan: -Since patient cannot have MRI, will obtain CTA Head/Neck to r/o LVO or stenosis that may warrant addition of antiplatelet therapy -Continue warfarin -BP to normotensive range as her NIHSS is 0 -Goals BP <130/80, hga1c <7.0, LDL <70 -PT/OT/SP per protocol -Stroke education given -DVT prophylaxis: Warfarin -d/w patient in detail. All questions answered. Thank you for this consultation. Please call with ?. Time with Patient: Greater than 30 (Time spent in direct patient care, greater than 50% of which was spent in [id number] counseling and coordination of care: 70 minutes.)
--- NOTE | 2019-02-22 13:41 | CT ---
EXAMINATION TYPE: CT angio head neck DATE OF EXAM: 02/22/2019 COMPARISON: Correlation prior carotid ultrasound 02/25/2018 HISTORY: 48-year-old female TIA and left lower extremity weakness. TECHNIQUE: Contiguous axial scanning of the head and neck performed with IV Contrast, patient injecte d with 50 mL of Isovue 370. Coronal/sagittal MIP reconstructions performed. 3-D reconstructions gener ated on a dedicated independent workstation. CT DLP: 347.4 mGycm Automated exposure control for dose reduction was used. FINDINGS: Neck: Diffuse thyroid enlargement measuring up to 7 cm craniocaudal could represent goiter and can be evalu ated clinically and possibly with ultrasound. Conventional arch vessel branching anatomy. The brachiocephalic and right common carotid artery are patent. Mild atherosclerotic plaque and calcification within the right carotid bulb without significant narro wing. The left common carotid artery is patent. Mild eccentric atherosclerotic calcification within the car otid bulb. No significant stenosis seen within the left internal carotid artery. Moderate focal atherosclerotic narrowing at the proximal right subclavian artery. The bilateral vertebral arteries are codominant and appear patent throughout their course. Head: Air-fluid level left maxillary sinus with moderate mucosal thickening. Possible moderate to severe atherosclerotic narrowing at the bilateral cavernous segments of the inte rnal carotid arteries. There is a 4 mm saccular aneurysm projecting posteriorly from the distal right internal carotid arter y prior to the carotid terminus. Asymmetrically hypoplastic A1 segment left anterior cerebral artery. Persistent origin left pos terior cerebral artery. The vertebral and basilar arteries appear patent. Extensive encephalomalacia right cerebral hemisphere and multifocal areas of subtle malacia left cere bral hemisphere. IMPRESSION: NECK: 1. MILD ATHEROSCLEROTIC CHANGE AT THE BILATERAL CAROTID BULBS WITHOUT HEMODYNAMICALLY SIGNIFICANT CUATE NOSIS IN EITHER ICA. 2. MODERATE FOCAL ATELECTATIC NARROWING PROXIMAL RIGHT SUBCLAVIAN ARTERY. 3. THYROMEGALY MEASURING UP TO 7 CM, POSSIBLE GOITER. THIS CAN BE EVALUATED CLINICALLY AND POSSIBLY W ITH ULTRASOUND WELL. HEAD: 1. A 4 MM SACCULAR ANEURYSM PROJECTING POSTERIORLY FROM THE SUPRACLINOID RIGHT ICA PRIOR TO THE CAROT ID TERMINUS. 2. HYPOPLASTIC A1 SEGMENT LEFT ANTERIOR CEREBRAL ARTERY. 3. MODERATE TO SEVERE ATHEROSCLEROTIC NARROWING OF THE BILATERAL CAVERNOUS SEGMENT INTERNAL CAROTID A RTERIES. 4. NO LARGE VESSEL INTRACRANIAL ARTERIAL OCCLUSION IDENTIFIED. 5. CORRELATE FOR ACUTE ON CHRONIC LEFT MAXILLARY SINUSITIS.
--- NOTE | 2019-02-22 14:29 | P.PN ---
Progress Note - Text Progress Note Date: 02/22/19 CT angiogram of the head and neck was obtained with the following findings. Within the head there is a 4 mm saccular aneurysm projecting posteriorly from the supraclinoid right ICA prior to the carotid terminus. There is hypoplastic A1 segment of the left EHSAN. There's also moderate to severe atherosclerotic stenosis of the bilateral cavernous segment of the internal carotid arteries. There is no evidence of large vessel occlusion intracranially. Extracranially, there is mild atherosclerotic change at the bilateral carotid bulbs without hemodynamically significant stenosis in either ICA. There is moderate focal atelectactic stenosis of the proximal right subclavian artery. With these above findings, I am concerned about the possibility of artery to artery phenomenon that is best treated with antiplatelet therapy. Therefore, I am going to start her on aspirin 81 mg daily given that she is already on anticoagulation with warfarin. If patient is going to remain in house into tomorrow, we will obtain fasting lipid profile with her goal LDL less than 70. We'll continue statin therapy. Since patient remains neurologically asymptomatic, she is cleared for discharge from a neurological standpoint. Final decision on disposition will be deferred to the primary team. d/w patient in detail. No other neuro recs at this time. Will sign off. Please call with new ?.
[2019-02-22] MEDS: ASPIRIN 81 MG PO SCH (16:42)
[2019-02-22] MEDS: ATORVASTATIN 80 MG TAB PO SCH (20:33)
[2019-02-22] MEDS: DONEPEZIL 10 MG TAB PO SCH (20:33)
--- NOTE | 2019-02-23 02:11 | P.PN ---
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 Patient says that she was at [employer] yesterday afternoon and suddenly noticed that her left leg is heavy and weak. Patient came to ER for further evaluation. Symptoms lasted for about an hour. No associated headache or dizziness or lightheadedness. No nausea vomiting or abdominal pain. No recent illnesses. Patient follows with Dr. Roberts as an outpatient neurology clinic. Left lower activity weakness is much improved now. Denied any fever or chills. No dysuria or hematuria. No hematemesis or melena. CT head showed no acute abnormalities. No changes from prior study. Chest x-ray negative. EKG showed normal sinus rhythm. INR 3.0 02/22/2019 Patient denied any new complaints today. Left lower extremities weakness is resolved. INR is 5.3 today. Coumadin is on hold. Patient was seen by neurology and CT neck was ordered. CT angiogram of the head and neck was obtained with the following findings. Within the head there is a 4 mm saccular aneurysm projecting posteriorly from the supraclinoid right ICA prior to the carotid terminus. There is hypoplastic A1 segment of the left EHSAN. There's also moderate to severe atherosclerotic stenosis of the bilateral cavernous segment of the internal carotid arteries. There is no evidence of large vessel occlusion intracranially. Extracranially, there is mild atherosclerotic change at the bilateral carotid bulbs without hemodynamically significant stenosis in either ICA. There is moderate focal atelectactic stenosis of the proximal right subclavian artery. possibility of artery to artery phenomenon that is best treated with antiplatelet therapy. added aspirin daily as per neurology recommendations. Continue with Coumadin. Follow up liver profile. No complaints of chest pain or shortness of breath. No nausea vomiting or abdominal pain. No other acute overnight issues. Current medications reviewed. Objective - Vital Signs Vital signs: Vital Signs Temp 98.3 F 02/22/19 15:35 Pulse 74 02/22/19 15:35 Resp 18 02/22/19 15:35 BP 97/65 02/22/19 15:35 Pulse Ox 98 02/22/19 15:35 Intake & Output 02/21/19 02/22/19 02/22/19 18:59 06:59 18:59 Intake Total 684 200 940 Balance 684 200 940 Weight 57.9 kg Intake: Oral 684 200 940 Other: # Voids 2 3 - Exam PHYSICAL EXAMINATION: Patient is lying in the bed comfortably, no acute distress, awake alert and oriented.. HEENT: Normocephalic. Neck is supple. Pupils reactive. Nostrils clear. Oral cavity is moist. Ears reveal no drainage. Neck reveals no JVD, carotid bruits, or thyromegaly. CHEST EXAMINATION: Trachea is central. Symmetrical expansion. Lung shetty clear to auscultation and percussion. CARDIAC: Normal S1, S2 with no gallops. No murmurs ABDOMEN: Soft. Bowel sounds normal. No organomegaly. No abdominal bruits. Extremities: reveal no edema. No clubbing or cyanosis Neurologically awake, alert, oriented x3 with well-coordinated movements. No focal deficits noted Skin: No rash or skin lesions. Psychiatric: Coperative. Nonsuicidal Musculoskeletal: No joint swelling or deformity. Normal range of motion. - Labs CBC & Chem 7: 02/20/19 22:46 02/22/19 06:02 Labs: Abnormal Lab Results - Last 24 Hours (Table) 02/22/19 02/22/19 Range/Units 06:02 06:02 PT 51.2 H (9.0-12.0) sec INR 5.3 H* (<1.2) Glucose 100 H (74-99) mg/dL Calcium 8.1 L (8.4-10.2) mg/dL Assessment and Plan Assessment: Left lower extremities weakness likely due to TIA. Improved now. Previous history of CVA in 2007 with no residual weakness.. No TPA was given at the time. History of pulmonary embolism on long-term anticoagulation Seizure disorder History of permanent pacemaker placement Nicotine addiction DVT prophylaxis Plan: patient will be continued on telemetry monitoring. Patient is on day correlation with Coumadin. INR is 3.0,--5.3. Hold Coumadin. Neurology is following. Start back on her current home medications, except blood pressure medications. Continue with neuro checks and fall precautions.. Time with Patient: Greater than 30
[2019-02-23 03:04] LABS: Cholesterol 154 mg/dL (<200); HDL Cholesterol 44 mg/dL (40-60); LDL Cholesterol,Calculated 93 mg/dL (0-99); Triglycerides 85 mg/dL (<150)
[2019-02-23] MEDS: CARVEDILOL 3.125 MG TAB PO SCH (06:05)
[2019-02-23 06:26] VITALS: TEMP 98.1
[2019-02-23 09:26] VITALS: BP 117/72; PULSE 79; RESP 18
[2019-02-23] MEDS: ASPIRIN 81 MG PO SCH (09:27)
[2019-02-23] MEDS: GABAPENTIN 300 MG CAP PO SCH (09:27)
[2019-02-23] MEDS: carBAMazepine 200 MG TAB PO SCH (09:27)
[2019-02-23] MEDS: SPIRONOLACTONE 25 MG TAB PO SCH (09:27)
[2019-02-23] MEDS: PHENYTOIN SODIUM EXTENDED 100 MG CAP PO SCH (09:27)
[2019-02-23 12:02] LABS: INR 2.2 (<1.2); Prothrombin Time 21.8 sec (9.0-12.0)
[2019-02-23 12:06] LABS: Basophils % (A) 0 %; Eosinophils # (A) 0.1 k/uL (0-0.7); Eosinophils % (A) 1 %; HCT 39.7 % (34.0-46.0); HGB 12.6 gm/dL (11.4-16.0); Hypochromasia Slight; Lymphocytes # (A) 1.2 k/uL (1.0-4.8); Lymphocytes % (A) 29 %; MCH 29.7 pg (25.0-35.0); MCHC 31.7 g/dL (31.0-37.0); MCV 93.7 fL (80.0-100.0); Mean Platelet Volume 7.8; Monocytes # (A) 0.3 k/uL (0-1.0); Monocytes % (A) 6 %; Neutrophils # (A) 2.4 k/uL (1.3-7.7); Neutrophils % (A) 61 %; Platelet Count 219 k/uL (150-450); RBC 4.24 m/uL (3.80-5.40)
[2019-02-23 12:12] LABS: ALT 20 U/L (9-52); AST 30 U/L (14-36); African American GFR (CKD) >90 (>60 ml/min/1.73 sqM); Albumin 4.2 g/dL (3.5-5.0); Alkaline Phosphatase 82 U/L (38-126); Anion Gap 9 mmol/L; Blood Urea Nitrogen 13 mg/dL (7-17); Calcium 8.5 mg/dL (8.4-10.2); Carbon Dioxide 28 mmol/L (22-30); Chloride 101 mmol/L (98-107); Glucose 82 mg/dL (74-99); Magnesium 1.9 mg/dL (1.6-2.3); Potassium 5.4 mmol/L (3.5-5.1); Sodium 138 mmol/L (137-145); Total Bilirubin 0.3 mg/dL (0.2-1.3); Total Protein 7.2 g/dL (6.3-8.2)
== END 2019-02-23 12:13 | disposition home or self-care (01) ==
LOC: EC 22:19 → 3SCARD 02-21 01:17
PROVIDERS: ADMIT Hospitalist; ATTEND Hospitalist
DX: R53.1 Weakness (principal); R20.0 Anesthesia of skin; R26.2 Difficulty in walking, not elsewhere classified; I67.1 Cerebral aneurysm, nonruptured; I65.23 Occlusion and stenosis of bilateral carotid arteries; G40.309 Generalized idiopathic epilepsy and epileptic syndromes, not intractable, without status epilepticus; I25.10 Atherosclerotic heart disease of native coronary artery without angina pectoris; I70.8 Atherosclerosis of other arteries; I50.9 Heart failure, unspecified; F41.9 Anxiety disorder, unspecified; F32.9 Major depressive disorder, single episode, unspecified; F17.200 Nicotine dependence, unspecified, uncomplicated; M54.32 Sciatica, left side; Z79.01 Long term (current) use of anticoagulants; Z79.899 Other long term (current) drug therapy; Z88.0 Allergy status to penicillin; Z88.1 Allergy status to other antibiotic agents; Z86.711 Personal history of pulmonary embolism; Z86.73 Personal history of transient ischemic attack (TIA), and cerebral infarction without residual deficits; Z95.0 Presence of cardiac pacemaker; Z82.49 Family history of ischemic heart disease and other diseases of the circulatory system
CPT/HCPCS: 99285; 36415; 93005; 92523; 80061; 80053 ×2; 80048; 84443; 83735; 84484; 85025 ×2; 85610 ×3; 85730; 71045; 70496; 70450; 70498; G0378 ×3; Q9967

== ENCOUNTER 2020-02-21 21:46 | Observation (INO) | payer MEDICARE, OTHER ==
[2020-02-21 22:39] LABS: Glucose,Whole Blood 118 mg/dL (75-99)
[2020-02-21] MEDS ORDERED: DIPH,PERTUS(ACELL)TETVAC-LF 0.5 ML VIAL IM ONE (23:14)
[2020-02-21] MEDS ORDERED: LIDOCAINE 1% INJ 10MG/ML (20 ML MDV) SQ ONE (23:14)
[2020-02-21] MEDS ORDERED: SODIUM CHLORIDE 0.9% 1,000 ML IV STA (23:14)
[2020-02-21 23:33] LABS: Basophils % (A) 1 %; Eosinophils # (A) 0.1 k/uL (0-0.7); Eosinophils % (A) 2 %; HCT 42.6 % (34.0-46.0); HGB 13.3 gm/dL (11.4-16.0); Lymphocytes # (A) 1.4 k/uL (1.0-4.8); Lymphocytes % (A) 33 %; MCH 30.3 pg (25.0-35.0); MCHC 31.3 g/dL (31.0-37.0); MCV 96.8 fL (80.0-100.0); Monocytes # (A) 0.3 k/uL (0-1.0); Monocytes % (A) 6 %; Neutrophils # (A) 2.5 k/uL (1.3-7.7); Neutrophils % (A) 57 %; Platelet Count 254 k/uL (150-450); RBC 4.41 m/uL (3.80-5.40); RDW 13.5 % (11.5-15.5); WBC 4.4 k/uL (3.8-10.6)
--- NOTE | 2020-02-21 23:56 | XR ---
EXAMINATION TYPE: XR chest 1V portable DATE OF EXAM: 02/21/2020 COMPARISON: 02/20/2019 HISTORY: Syncope TECHNIQUE: FINDINGS: Heart is normal. Lungs are clear of consolidation. There is left axillary pacemaker. There is no heart failure. There is no pleural effusion. Bony thorax is intact. IMPRESSION: No active cardiopulmonary disease. Normal heart. No significant change.
--- NOTE | 2020-02-21 23:59 | CT ---
EXAMINATION TYPE: CT brain juvenal wo con DATE OF EXAM: 02/21/2020 COMPARISON: 02/20/2019 HISTORY: FALL Headache. Neck pain CT DLP: 770.50 mGycm Automated exposure control for dose reduction was used. There is large area of hypodensity involving the right cerebral hemisphere consistent with large righ t middle cerebral artery distribution old infarct. There is no midline shift. There is enlargement of the right lateral ventricle. There is no sign of intracranial hemorrhage. The calvarium is intact. T here is hypodensity in this 3 cm area of left posterior frontal lobe consistent with small old infarc t. Cerebellum appears intact. Cervical vertebra have normal alignment. There is degenerative disc space narrowing at C5-6 C6-7 with spur formation. There is no evidence of a fracture. Posterior elements are intact. Facet joints are intact. IMPRESSION: Spondylotic changes in the lower cervical spine with disc space narrowing and spur formation at C5-6 C6-7. No fracture. Large right hemisphere old infarct. Small left posterior frontal lobe old cortical infarct. No acute intracranial abnormality. Brain unchanged compared to old exam.
[2020-02-22 00:01] LABS: INR 4.6 (<1.2); Partial Thromboplastin Time 32.3 sec (22.0-30.0); Prothrombin Time 45.6 sec (9.0-12.0)
--- NOTE | 2020-02-22 00:01 | CT ---
EXAMINATION TYPE: CT facial bones wo con DATE OF EXAM: 02/21/2020 COMPARISON: None HISTORY: FALL Pain CT DLP: 234.10 mGycm Automated exposure control for dose reduction was used. Images were obtained from the bottom of the mandible to the top of the frontal sinuses without contra st. The mandibular ring is intact. Temporomandibular joints are intact. Zygomatic arches are intact. The orbital margins are intact. There is no evidence of retro-orbital mass. There is no evidence of orbit al blowout fracture. There is fairly normal aeration of the paranasal sinuses. There is normal aerati on of the temporal bones. Skull base is intact. Nasal bone is intact. Maxilla appears intact. There is subcutaneous density anterior to the left zygoma consistent with bruising. IMPRESSION: No fracture. Left side zygomatic subcutaneous bruising.
[2020-02-22 00:10] LABS: ALT 38 U/L (4-34); AST 44 U/L (14-36); African American GFR (CKD) >90 (>60 ml/min/1.73 sqM); Albumin 4.4 g/dL (3.5-5.0); Alkaline Phosphatase 78 U/L (38-126); Anion Gap 7 mmol/L; Blood Urea Nitrogen 5 mg/dL (7-17); Calcium 8.5 mg/dL (8.4-10.2); Carbon Dioxide 29 mmol/L (22-30); Chloride 100 mmol/L (98-107); Glucose 118 mg/dL (74-99); Non-African American GFR(CKD) >90 (>60 ml/min/1.73 sqM); Potassium 4.3 mmol/L (3.5-5.1); Sodium 136 mmol/L (137-145); Total Bilirubin 0.2 mg/dL (0.2-1.3); Total Protein 7.7 g/dL (6.3-8.2)
[2020-02-22 00:35] LABS: Appearance,Urine Clear (Clear); Bilirubin,Urine Negative (Negative); Blood,Urine Negative (Negative); Color,Urine Yellow; Glucose,Urine (UA) Negative (Negative); Ketones,Urine Negative (Negative); Leukocyte Esterase,Urine Negative (Negative); Nitrite,Urine Negative (Negative); Protein,Urine Negative (Negative); Specific Gravity,Urine 1.009 (1.001-1.035); Urobilinogen,Urine <2.0 mg/dL (<2.0)
--- NOTE | 2020-02-22 00:45 | ED ---
General Adult HPI - General Chief complaint: Syncope Stated complaint: Syncope Time Seen by Provider: 02/21/20 22:20 Source: patient, RN notes reviewed Mode of arrival: ambulatory Limitations: no limitations - History of Present Illness Initial comments: 49-year-old female with a past medical history of CAD, heart failure, CVA, PE from him or fracture in 1994, seizure disorder, pacemaker presents to the emergency department for a chief complaint of syncopal episode. Patient states she was talking to her friend on the phone when suddenly she woke up on the ground. States she had bleeding from her head. Patient does not report any lightheadedness or dizziness preceding this. Patient has not had any chest pain or shortness of breath. Patient states she feels fine at this time. Patient has a history of seizures but has not had a seizure in over 10 years and did not bite her tongue or lose control of bladder or bowel function.Patient has no other complaints at this time including shortness of breath, chest pain, abdominal pain, nausea or vomiting, headache, or visual changes. - Related Data Home Medications Medication Instructions Recorded Confirmed Atorvastatin Calcium [Lipitor] 80 mg PO HS 03/08/14 02/20/19 Carvedilol 3.125 mg PO AC-BID 03/08/14 02/20/19 Lisinopril [Prinivil] 10 mg PO DAILY 03/08/14 02/20/19 Spironolactone [Aldactone] 25 mg PO DAILY 03/08/14 02/20/19 Donepezil [Aricept] 10 mg PO HS 07/11/14 02/20/19 Phenytoin Sodium Extended 100 mg PO TID 07/11/14 02/20/19 [Dilantin] levETIRAcetam [Keppra] 1,500 mg PO BID 03/22/17 02/20/19 ALPRAZolam [Xanax] 0.5 mg PO BID PRN 06/08/17 02/20/19 Gabapentin 600 mg PO TID 02/20/19 02/20/19 carBAMazepine [TEGretol] 200 mg PO TID 02/20/19 02/20/19 Previous Rx's Medication Instructions Recorded Warfarin [Coumadin] 2.5 mg PO HS #0 02/26/18 Aspirin 81 mg PO DAILY #30 chew 02/23/19 Allergies Allergy/AdvReac Type Severity Reaction Status Date / Time cephalexin monohydrate Allergy Rash/Hives Verified 02/21/20 22:12 [From Keflex] Penicillins Allergy Anaphylaxis Verified 02/21/20 22:12 Review of Systems ROS Statement: Those systems with pertinent positive or pertinent negative responses have been documented in the HPI. ROS Other: All systems not noted in ROS Statement are negative. Past Medical History Past Medical History: Coronary Artery Disease (CAD), Heart Failure, CVA/TIA, Pulmonary Embolus (PE), Seizure Disorder Additional Past Medical History / Comment(s): epilepsy;pe in 1995 History of Any Multi-Drug Resistant Organisms: None Reported Past Surgical History: Pacemaker Additional Past Surgical History / Comment(s): pacer. Past Anesthesia/Blood Transfusion Reactions: No Reported Reaction Type of Cardiac Device: Permanent Pacemaker Device Placement Date:: 2012 Past Psychological History: Anxiety, Depression Smoking Status: Current every day smoker Past Alcohol Use History: None Reported Past Drug Use History: None Reported - Past Family History Father Family Medical History: Coronary Artery Disease (CAD) Mother Additional Family Medical History / Comment(s): cardiomyopathy General Exam Limitations: no limitations General appearance: alert, in no apparent distress Head exam: Present: atraumatic, normocephalic, normal inspection Eye exam: Present: normal appearance, PERRL, EOMI, periorbital swelling (Patient has left-sided perirbital ecchymosis extending into the left zygomatic area). Absent: scleral icterus, conjunctival injection ENT exam: Present: normal exam, mucous membranes moist Neck exam: Present: normal inspection, full ROM. Absent: tenderness, meningismus, lymphadenopathy Respiratory exam: Present: normal lung sounds bilaterally. Absent: respiratory distress, wheezes, rales, rhonchi, stridor Cardiovascular Exam: Present: regular rate, normal rhythm, normal heart sounds. Absent: systolic murmur, diastolic murmur, rubs, gallop, clicks GI/Abdominal exam: Present: soft, normal bowel sounds. Absent: distended, tenderness, guarding, rebound, rigid Neurological exam: Present: alert, oriented X3, CN II-XII intact Course Vital Signs 02/21/20 02/22/20 22:08 00:44 Temperature 98 F Pulse Rate 65 71 Respiratory 18 16 Rate Blood Pressure 127/75 120/64 O2 Sat by Pulse 98 99 Oximetry EKG Findings - EKG Comments: EKG Findings:: Normal sinus rhythm, left ventricular hypertrophy, ventricular rate 61, TX int 164, QTc 497 Procedures - Laceration Laceration #1 Consent Obtained: verbal consent Indication: laceration Site: face Size (cm): 3 Description: linear Depth: simple, single layer Anesthetic Used: lidocaine 1% Anesthesia Technique: local infiltration Amount (mls): 2 Pre-repair: wound explored, irrigated extensively (with saline pressure irrigation), deep structures intact Type of Sutures: nylon Size of Sutures: 5-0 Number of Sutures: 3 Technique: simple, interrupted Patient Tolerated Procedure: well, no complications Medical Decision Making - Medical Decision Making HPI physical exam as documented. Vitals are stable. Patient is ecchymosis noted along the left orbit as well as a small laceration. Globe appears intact. CBC CMP unremarkable. INR 4.6. Patient does take Coumadin secondary postemetic PE from 1994. Chest x-ray shows no active cardiopulmonary disease. Normal heart. No significant change. BNP pending. CT facial bones shows no fracture, left side the zygomatic subcutaneous bruising. CT brain shows a large right hemisphere old infarct with a small left posterior frontal lobe old infarct without acute intracranial abnormality. No fracture in the cervical spine. Given history of heart failure and syncopal episode patient will be admitted for cardiology consultation. - Lab Data Result diagrams: 02/21/20 23:16 02/21/20 23:16 Lab Results 02/21/20 02/21/20 02/21/20 Range/Units 22:37 23:16 23:16 WBC 4.4 (3.8-10.6) k/uL RBC 4.41 (3.80-5.40) m/uL Hgb 13.3 (11.4-16.0) gm/dL Hct 42.6 (34.0-46.0) % MCV 96.8 (80.0-100.0) fL MCH 30.3 (25.0-35.0) pg MCHC 31.3 (31.0-37.0) g/dL RDW 13.5 (11.5-15.5) % Plt Count 254 (150-450) k/uL Neutrophils % 57 % Lymphocytes % 33 % Monocytes % 6 % Eosinophils % 2 % Basophils % 1 % Neutrophils # 2.5 (1.3-7.7) k/uL Lymphocytes # 1.4 (1.0-4.8) k/uL Monocytes # 0.3 (0-1.0) k/uL Eosinophils # 0.1 (0-0.7) k/uL Basophils # 0.0 (0-0.2) k/uL PT 45.6 H (9.0-12.0) sec INR 4.6 H (<1.2) APTT 32.3 H (22.0-30.0) sec Sodium (137-145) mmol/L Potassium (3.5-5.1) mmol/L Chloride (98-107) mmol/L Carbon Dioxide (22-30) mmol/L Anion Gap mmol/L BUN (7-17) mg/dL Creatinine (0.52-1.04) mg/dL Est GFR (CKD-EPI)AfAm (>60 ml/min/1.73 sqM) Est GFR (CKD-EPI)NonAf (>60 ml/min/1.73 sqM) Glucose (74-99) mg/dL POC Glucose (mg/dL) 118 H (75-99) mg/dL POC Glu Vice Chairman ID Miguel, Do Calcium (8.4-10.2) mg/dL Total Bilirubin (0.2-1.3) mg/dL AST (14-36) U/L ALT (4-34) U/L Alkaline Phosphatase (38-126) U/L Troponin I (0.000-0.034) ng/mL Total Protein (6.3-8.2) g/dL Albumin (3.5-5.0) g/dL Urine Color Urine Appearance (Clear) Urine pH (5.0-8.0) Ur Specific [place] (1.001-1.035) Urine Protein (Negative) Urine Glucose (UA) (Negative) Urine Ketones (Negative) Urine Blood (Negative) Urine Nitrite (Negative) Urine Bilirubin (Negative) Urine Urobilinogen (<2.0) mg/dL Ur Leukocyte Esterase (Negative) 02/21/20 02/21/20 02/22/20 Range/Units 23:16 23:16 00:08 WBC (3.8-10.6) k/uL RBC (3.80-5.40) m/uL Hgb (11.4-16.0) gm/dL Hct (34.0-46.0) % MCV (80.0-100.0) fL MCH (25.0-35.0) pg MCHC (31.0-37.0) g/dL RDW (11.5-15.5) % Plt Count (150-450) k/uL Neutrophils % % Lymphocytes % % Monocytes % % Eosinophils % % Basophils % % Neutrophils # (1.3-7.7) k/uL Lymphocytes # (1.0-4.8) k/uL Monocytes # (0-1.0) k/uL Eosinophils # (0-0.7) k/uL Basophils # (0-0.2) k/uL PT (9.0-12.0) sec INR (<1.2) APTT (22.0-30.0) sec Sodium 136 L (137-145) mmol/L Potassium 4.3 (3.5-5.1) mmol/L Chloride 100 (98-107) mmol/L Carbon Dioxide 29 (22-30) mmol/L Anion Gap 7 mmol/L BUN 5 L (7-17) mg/dL Creatinine 0.53 (0.52-1.04) mg/dL Est GFR (CKD-EPI)AfAm >90 (>60 ml/min/1.73 sqM) Est GFR (CKD-EPI)NonAf >90 (>60 ml/min/1.73 sqM) Glucose 118 H (74-99) mg/dL POC Glucose (mg/dL) (75-99) mg/dL POC Glu Vice Chairman ID Calcium 8.5 (8.4-10.2) mg/dL Total Bilirubin 0.2 (0.2-1.3) mg/dL AST 44 H (14-36) U/L ALT 38 H (4-34) U/L Alkaline Phosphatase 78 (38-126) U/L Troponin I <0.012 (0.000-0.034) ng/mL Total Protein 7.7 (6.3-8.2) g/dL Albumin 4.4 (3.5-5.0) g/dL Urine Color Yellow Urine Appearance Clear (Clear) Urine pH 5.0 (5.0-8.0) Ur Specific [place] 1.009 (1.001-1.035) Urine Protein Negative (Negative) Urine Glucose (UA) Negative (Negative) Urine Ketones Negative (Negative) Urine Blood Negative (Negative) Urine Nitrite Negative (Negative) Urine Bilirubin Negative (Negative) Urine Urobilinogen <2.0 (<2.0) mg/dL Ur Leukocyte Esterase Negative (Negative) Disposition Clinical Impression: Syncopal episodes, Head injury, Elevated INR Disposition: ADMITTED IP TO THIS HOSP Condition: Fair Is patient prescribed a controlled substance at d/c from ED?: No Referrals: Garth Auguste MD [Primary Care Provider] - 1-2 days Time of Disposition: 01:25
[2020-02-22] MEDS ORDERED: traMADol 50 MG TAB PO PRN (01:26)
[2020-02-22] MEDS ORDERED: NALOXONE 0.4 MG/ML 1 ML VIAL IV PRN (01:26)
[2020-02-22] MEDS: SODIUM CHLORIDE 0.9% 1,000 ML IV SCH (02:00)
--- NOTE | 2020-02-22 09:46 | P.CRDCN ---
History of Present Illness History of present illness: HISTORY OF PRESENTING ILLNESS This is a pleasant 49-year-old female past medical history significant for dilated cardiomyopathy status post single-chamber ICD [employer] imp lanted in 2012, CVA, seizures, chronic systolic heart failure, hypertension, dyslipidemia, history of PE in 1994 after leg fracture, paroxysmal atrial fibrillation on long-term anticoagulation and recent episodes of ventricular tachycardia noted on pacemaker interrogation treated with antitachycardia pacing. She was started on amiodarone 200 mg twice a day on February [address] Berrios in the office. We have been asked to see in consultation for syncope. She states last night she was talking on the phone with her friend. She stood up and next thing she was on the floor. She states she did not fully pass out or lose consciousness. She was talking to her friend that was at her house throughout the episode but she felt like she was not herself. She denies chest pain, shortness of breath, dizziness or palpitations. She hit her face on the left side and her left knee. She does have abrasions and ecchymosis over the left eye and mandible. She is also complaining of discomfort of the left knee. According to the patient there is no seizure-like activity or loss of bowel/bladder control. DIAGNOSTICS EKG reveals sinus mechanism, LVH and nonspecific ST abnormalities. Telemetry tracings unremarkable for arrhythmia. Chest xray negative for any acute cardiopulmonary process. CT of the head neck and face is unremarkable and unchanged from previous with no acute fracture. Laboratory reviewed, CBC unremarkable, INR 4.6, sodium 136, potassium 4.3, creatinine 0.53, cardiac enzymes negative 2, NT proBNP 280. Current cardiac medications include amiodarone 200 mg twice a day, carvedilol 6.25 mg twice a day, Coumadin 2.5 mg at bedtime, lisinopril 10 mg daily and atorvastatin 80 mg at bedtime. Most recent stress test in the office January 2019 with a Lexiscan stress test was negative for reversibility. Most recent echocardiogram performed in the office January 2019 reveals impaired LV systolic function with ejection fraction 40-45%. REVIEW OF SYSTEMS At the time of my exam: CONSTITUTIONAL: Denies fever or chills. CARDIOVASCULAR: Denies chest pain, shortness of breath, orthopnea, PND or pa lpitations. RESPIRATORY: Denies cough. GASTROINTESTINAL: Denies abdominal pain, diarrhea, constipation, nausea or vomiting. MUSCULOSKELETAL: Denies myalgias. NEUROLOGIC: Denies numbness, tingling or weakness. ENDOCRINE: Denies fatigue, weight change, polydipsia or polyurina. GENITOURINARY: Denies burning, hematuria or urgency with micturation. HEMATOLOGIC: Denies history of anemia or bleeding. PHYSICAL EXAMINATION Blood pressure 102/62 heart rate 73 afebrile and maintaining oxygen saturation on room air. CONSTITUTIONAL: No apparent distress. HEENT: Head is normocephalic. Pupils are equal, round. Sclerae anicteric. Mucous membranes of the mouth are moist. No JVD. No carotid bruit. CHEST EXAMINATION: Lungs are clear to auscultation. No chest wall tenderness is noted on palpation or with deep breathing. HEART EXAMINATION: Regular rate and rhythm. S1, S2 heard. No murmurs, gallops or rub. ABDOMEN: Soft, nontender. Positive bowel sounds. EXTREMITIES: 2+ peripheral pulses, no lower extremity edema and no calf tenderness. NEUROLOGIC EXAMINATION: Patient is awake, alert and oriented x3. ASSESSMENT Syncopal episode New-onset ventricular tachycardia noted on recent ICD interrogation 02/14/2020 initiated on amiodarone 200 mg twice a day that day Dilated cardiomyopathy status post AICD Paroxysmal atrial fibrillation on long-term anticoagulation with Coumadin Supratherapeutic INR Chronic systolic heart failure, clinically euvolemic Hypertension Dyslipidemia History of pulmonary embolism Seizures History of CVA Pulmonary embolism in 1994 PLAN Interrogate Lutonix device. Check for orthostatic changes. Resume amiodarone 200 mg twice a day, coreg with parameters and atorvastatin. Hold coumadin tonight secondary to INR 4.6. Hold lisinopril for borderline blood pressures. Ongoing telemetry monitoring. Further recommendations to follow based upon clinical course. Thank you kindly for this consultation. Nurse Practitioner note has been reviewed, I agree with a documented findings and plan of care. Patient was seen and examined. Past Medical History Past Medical History: Coronary Artery Disease (CAD), Heart Failure, CVA/TIA, Pulmonary Embolus (PE), Seizure Disorder Additional Past Medical History / Comment(s): epilepsy;pe in 1995 History of Any Multi-Drug Resistant Organisms: None Reported Past Surgical History: Pacemaker Additional Past Surgical History / Comment(s): pacer. Past Anesthesia/Blood Transfusion Reactions: No Reported Reaction Type of Cardiac Device: Permanent Pacemaker Device Placement Date:: 2012 Past Psychological History: Anxiety, Depression Smoking Status: Current every day smoker Past Alcohol Use History: None Reported Past Drug Use History: None Reported - Past Family History Father Family Medical History: Coronary Artery Disease (CAD) Mother Additional Family Medical History / Comment(s): cardiomyopathy Medications and Allergies Home Medications Medication Instructions Recorded Confirmed Type Atorvastatin Calcium [Lipitor] 80 mg PO HS 03/08/14 02/22/20 History Lisinopril [Prinivil] 10 mg PO DAILY 03/08/14 02/22/20 History Donepezil [Aricept] 10 mg PO HS 07/11/14 02/22/20 History Phenytoin Sodium Extended 100 mg PO HS 07/11/14 02/22/20 History [Dilantin] levETIRAcetam [Keppra] 1,500 mg PO BID 03/22/17 02/22/20 History Gabapentin 600 mg PO TID 02/20/19 02/22/20 History carBAMazepine [TEGretol] 200 mg PO HS 02/20/19 02/22/20 History Amiodarone [Cordarone] 200 mg PO BID 02/22/20 02/22/20 History Carvedilol [Coreg] 6.25 mg PO BID-W/MEALS 02/22/20 02/22/20 History Phenytoin Sodium Extended 200 mg PO QAM 02/22/20 02/22/20 History [Dilantin] Warfarin Sodium [Coumadin] 2.5 mg PO HS 02/22/20 02/22/20 History carBAMazepine [TEGretol] 400 mg PO QAM 02/22/20 02/22/20 History Allergies Allergy/AdvReac Type Severity Reaction Status Date / Time cephalexin monohydrate Allergy Rash/Hives Verified 02/22/20 06:57 [From Keflex] Penicillins Allergy Anaphylaxis Verified 02/22/20 06:57 Physical Exam Vitals: Vital Signs Temp Pulse Resp BP Pulse Ox 02/22/20 05:44 98.1 F 73 16 102/62 98 02/22/20 02:03 68 16 106/71 98 02/22/20 00:44 71 16 120/64 99 02/21/20 22:08 98 F 65 18 127/75 98 Intake and Output 06/25/20 06/26/20 06/26/20 22:59 06:59 14:59 Other: Weight 50.802 kg Results 02/21/20 23:16 02/21/20 23:16 Cardiac Enzymes 02/21/20 02/21/20 02/22/20 Range/Units 23:16 23:16 07:49 AST 44 H (14-36) U/L Troponin I <0.012 <0.012 (0.000-0.034) ng/mL Coagulation 02/21/20 Range/Units 23:16 PT 45.6 H (9.0-12.0) sec APTT 32.3 H (22.0-30.0) sec CBC 02/21/20 Range/Units 23:16 WBC 4.4 (3.8-10.6) k/uL RBC 4.41 (3.80-5.40) m/uL Hgb 13.3 (11.4-16.0) gm/dL Hct 42.6 (34.0-46.0) % Plt Count 254 (150-450) k/uL Comprehensive Metabolic Panel 02/21/20 Range/Units 23:16 Sodium 136 L (137-145) mmol/L Potassium 4.3 (3.5-5.1) mmol/L Chloride 100 (98-107) mmol/L Carbon Dioxide 29 (22-30) mmol/L BUN 5 L (7-17) mg/dL Creatinine 0.53 (0.52-1.04) mg/dL Glucose 118 H (74-99) mg/dL Calcium 8.5 (8.4-10.2) mg/dL AST 44 H (14-36) U/L ALT 38 H (4-34) U/L Alkaline Phosphatase 78 (38-126) U/L Total Protein 7.7 (6.3-8.2) g/dL Albumin 4.4 (3.5-5.0) g/dL Current Medications Generic Name Dose Route Start Last Admin Trade Name Freq PRN Reason Stop Dose Admin Sodium Chloride 1,000 mls @ 20 mls/hr 02/22/20 01:30 02/22/20 02:00 Saline 0.9% IV 20 mls/hr .Q24H ADDIE Administration Naloxone HCl 0.2 mg 02/22/20 01:26 Narcan IV Q2M PRN Opioid Reversal Tramadol HCl 50 mg 02/22/20 01:26 Ultram PO Q6H PRN Moderate Pain Intake and Output 02/21/20 02/22/20 02/22/20 22:59 06:59 14:59 Other: Weight 50.802 kg 02/21/20 23:16 02/21/20 23:16
[2020-02-22] MEDS: AMIODARONE 200 MG TAB PO SCH ×2 (11:10→21:41)
--- NOTE | 2020-02-22 12:39 | ECHOF ---
Referral Reason:syncope MEASUREMENTS -------- HEIGHT: 167.6 cm WEIGHT: 50.8 kg BP: 102/62 RVIDd: 2.9 cm (< 3.3) IVSd: 0.9 cm (0.6 - 1.1) LVIDd: 5.5 cm (3.9 - 5.3) LVPWd: 0.8 cm (0.6 - 1.1) IVSs: 1.2 cm LVIDs: 4.0 cm LVPWs: 1.5 cm LA Diam: 3.7 cm (2.7 - 3.8) LAESV Index (A-L): 42.33 ml/m Ao Diam: 3.3 cm (2.0 - 3.7) AV Cusp: 2.0 cm (1.5 - 2.6) MV EXCURSION: 20.499 mm (> 18.000) MV EF SLOPE: 81 mm/s (70 - 150) EPSS: 2.2 cm MV E Eusebio: 0.67 m/s MV DecT: 254 ms MV A Eusebio: 0.65 m/s MV E/A Ratio: 1.03 RAP: 5.00 mmHg RVSP: 19.91 mmHg FINDINGS -------- Paced rhythm. This was a technically good study. The left ventricle is mildly dilated. Left ventricular wall thickness is normal. Overall left ej tricular systolic function is moderately impaired with, an EF between 35 - 40 %. Basal inferior LV wall motion is hypokinetic. Basal inferoseptal LV wall motion is hypokinetic. Mid inferior LV w all motion is hypokinetic. Mid inferoseptal LV wall motion is hypokinetic. Apical inferior LV w all motion is hypokinetic. Apical septum LV wall motion is hypokinetic. The right ventricle is normal in size. LA is severely dilated >40 ml/m2 The right atrium is normal in size. Interatrial and interventricular septum intact. There is mild aortic valve sclerosis. There is trace to mild mitral regurgitation. No regurgitation noted Trace/mild (physiologic) pulmonic regurgitation. The aortic root size is normal. Normal inferior vena cava with normal inspiratory collapse consistent with estimated right atrial pre ssure of 5 mmHg. There is no pericardial effusion. CONCLUSIONS -------- 1. Paced rhythm. 2. This was a technically good study. 3. The left ventricle is mildly dilated. 4. Left ventricular wall thickness is normal. 5. Overall left ventricular systolic function is moderately impaired with, an EF between 35 - 40 %. 6. Basal inferior LV wall motion is hypokinetic. 7. Basal inferoseptal LV wall motion is hypokinetic. 8. Mid inferior LV wall motion is hypokinetic. 9. Mid inferoseptal LV wall motion is hypokinetic. 10. Apical inferior LV wall motion is hypokinetic. 11. Apical septum LV wall motion is hypokinetic. 12. The right ventricle is normal in size. 13. LA is severely dilated >40 ml/m2 14. The right atrium is normal in size. 15. Interatrial and interventricular septum intact. 16. There is mild aortic valve sclerosis. 17. There is trace to mild mitral regurgitation. 18. No regurgitation noted 19. Trace/mild (physiologic) pulmonic regurgitation. 20. The aortic root size is normal. 21. Normal inferior vena cava with normal inspiratory collapse consistent with estimated right atrial pressure of 5 mmHg. 22. There is no pericardial effusion. MANAGER VAN: Rayna Perkins RDCS
[2020-02-22 14:55] LABS: Prothrombin Time 60.4 sec (9.0-12.0)
[2020-02-22 15:17] LABS: Carbamazepine (Tegretol) 6.8 ug/mL; Phenytoin (Dilantin) 9.5 ug/mL
[2020-02-22] MEDS ORDERED: PHYTONADIONE ORAL 5 MG/5 ML ORAL.SYRG PO STA (15:18)
--- NOTE | 2020-02-22 15:30 | P.HPIM ---
History of Present Illness This is a pleasant 49 years old female with past medical history of coronary artery disease, heart failure, status post pacemaker, CVA, pulmonary embolism on Coumadin, seizure disorder, left side weakness including left arm and leg and foot. Psoriasis. Bilateral glaucoma. Anxiety and depression. She is a patient of Dr. Trevino, she sees Dr. Berrios as an outpatient and Dr. Roberts is his neurologist. Patient states that she has not had a seizure for 10 years and she has been taking her seizure medication regularly. She states that she has stroke in 2007 with residual weakness in the left arm and leg with some left foot drop however she is able to walk on her own and she does not want to use a cane or walker. 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 Yesterday she came because she fell on the floor, she was talking to her friend on the phone was sitting on the couch and was she stand up she passed out and fell for 1 minute, followed by complete resolution and with fullness, no confusion, no jerking movements, no urine or bowel incontinence. No tongue biting. She knows it was admitted because she was started her friend on the phone. As a result for fall she has a wound of on her left eyelid with 1-2 stitches placed with surrounding bruising and swelling. No blurred vision, no residual deficits. No chest pain or dizziness or palpitation. No oral or headache. No more weakness or numbness. No change in urine or bowel habits. No fever Patient has defibrillator and she has recent history of V. tach on February 13, at that time she was started on amiodarone. Vitals are stable. CBC is unremarkable, IN. EKG showed normal sinus rhythm at 61 R was 4.6 yesterday. BMP is unremarkable except for sodium 136, glucose 118. Liver enzymes mildly elevated. Troponin 2 is negative. UA is not suspicious of infection. Chest x-ray: No acute process. CT of the head and cervical spine is unremarkable for acute process by radiologist, has some spondylitic changes and C5-6, C6-7, no fracture. There is a large right hemispheric old infarct with small left posterior frontal lobe CORTICAL infarct. No acute process. CT of the face showing no fracture Echocardiogram: Ejection fraction 35-40%, basal inferior LV wall motion is hypokinetic in several areas for example inferior, inferior septal, apical areas. Ammonium Hydroxide Operator evaluated the patient and they may interrogate the device. And the recommend to hold Coumadin and lisinopril and telemetry monitoring. Review of Systems CONSTITUTIONAL: No fever, no malaise, no fatigue. HEENT: No recent visual problems or hearing problems. Denied any sore throat. CARDIOVASCULAR: No orthopnea, PND, no palpitations, no syncope. PULMONARY: No shortness of breath, no cough, no hemoptysis. GASTROINTESTINAL: No diarrhea, no nausea, no vomiting, no abdominal pain. Normoactive bowel sounds. NEUROLOGICAL: No headaches, no weakness, no numbness. HEMATOLOGICAL: Denies any bleeding or petechiae. GENITOURINARY: Denies any burning micturition, frequency, or urgency. MUSCULOSKELETAL/RHEUMATOLOGICAL: Denies any joint pain, swelling, or any muscle pain. ENDOCRINE: Denies any polyuria or polydipsia. 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 History of Any Multi-Drug Resistant Organisms: None Reported Past Surgical History: Pacemaker Additional Past Surgical History / Comment(s): Bilateral eye surgery for glaucom a Past Anesthesia/Blood Transfusion Reactions: No Reported Reaction Type of Cardiac Device: Permanent Pacemaker Device Placement Date:: 2012 Smoking Status: Current every day smoker - Past Family History Father Family Medical History: Coronary Artery Disease (CAD), Myocardial Infarction (MN) Additional Family Medical History / Comment(s): Father is 75 yrs old. He had a silent MN. Mother Additional Family Medical History / Comment(s): Mother is at 32 yrs d/t cardiomyopathy Medications and Allergies Home Medications Medication Instructions Recorded Confirmed Type RX: Atorvastatin Calcium [Lipitor] 80 mg PO HS 03/08/14 02/22/20 History RX: Lisinopril [Prinivil] 10 mg PO DAILY 03/08/14 02/22/20 History RX: Donepezil [Aricept] 10 mg PO HS 07/11/14 02/22/20 History RX: Phenytoin Sodium Extended 100 mg PO HS 07/11/14 02/22/20 History [Dilantin] RX: levETIRAcetam [Keppra] 1,500 mg PO BID 03/22/17 02/22/20 History RX: Gabapentin 600 mg PO TID 02/20/19 02/22/20 History RX: carBAMazepine [TEGretol] 200 mg PO HS 02/20/19 02/22/20 History Amiodarone [Cordarone] 200 mg PO BID 02/22/20 02/22/20 History Carvedilol [Coreg] 6.25 mg PO BID-W/MEALS 02/22/20 02/22/20 History Phenytoin Sodium Extended 200 mg PO QAM 02/22/20 02/22/20 History [Dilantin] Warfarin Sodium [Coumadin] 2.5 mg PO HS 02/22/20 02/22/20 History carBAMazepine [TEGretol] 400 mg PO QAM 02/22/20 02/22/20 History Allergies Allergy/AdvReac Type Severity Reaction Status Date / Time cephalexin monohydrate Allergy Rash/Hives Verified 02/22/20 06:57 [From Keflex] Penicillins Allergy Anaphylaxis Verified 02/22/20 06:57 Physical Exam Vitals: Vital Signs Temp Pulse Resp BP Pulse Ox 02/22/20 05:44 98.1 F 73 16 102/62 98 02/22/20 02:03 68 16 106/71 98 02/22/20 00:44 71 16 120/64 99 02/21/20 22:08 98 F 65 18 127/75 98 Intake and Output 02/21/20 02/22/20 02/22/20 22:59 06:59 14:59 Other: Weight 50.802 kg 50.802 kg GENERAL: The patient is alert and oriented x3, not in any acute distress. Well developed, well nourished. HEENT: Pupils are round and equally reacting to light. EOMI. No scleral icterus. No conjunctival pallor. Normocephalic, atraumatic. No pharyngeal erythema. No thyromegaly. CARDIOVASCULAR: S1 and S2 present. No murmurs, rubs, or gallops. PULMONARY: Chest is clear to auscultation, no wheezing or crackles. ABDOMEN: Soft, nontender, nondistended, normoactive bowel sounds. No palpable organomegaly. MUSCULOSKELETAL: No joint swelling or deformity. EXTREMITIES: No cyanosis, clubbing, or pedal edema. NEUROLOGICAL: Gross neurological examination did not reveal any focal deficits. SKIN: No rashes. No petechiae Results CBC & Chem 7: 02/21/20 23:16 02/21/20 23:16 Labs: Abnormal Lab Results - Last 24 Hours (Table) 02/21/20 02/21/20 02/21/20 Range/Units 22:37 23:16 23:16 PT 45.6 H (9.0-12.0) sec INR 4.6 H (<1.2) APTT 32.3 H (22.0-30.0) sec Sodium 136 L (137-145) mmol/L BUN 5 L (7-17) mg/dL Glucose 118 H (74-99) mg/dL POC Glucose (mg/dL) 118 H (75-99) mg/dL AST 44 H (14-36) U/L ALT 38 H (4-34) U/L Thrombosis Risk Factor Assmnt - Choose All That Apply Any of the Below Risk Factors Present?: Yes Each Factor Represents 1 point: Age 41-60 years Other Risk Factors: No Other congenital or acquired thrombophilia - If yes, enter type in comment: No Thrombosis Risk Factor Assessment Total Risk Factor Score: 1 Thrombosis Risk Factor Assessment Level: Low Risk Assessment and Plan Assessment: Syncope, with loss of consciousness for 1 minute followed by complete recovery. Throat of cardiac origin History of nonsustained V. tach, on defibrillator Abnormal echocardiogram with ejection fraction 35-40%, with LV wall motion is hypokinetic in several areas including inferior, inferior septal and apical areas Chronic systolic heart failure Coronary heart disease History of CVA with left hemiparesis seizure disorder Pulmonary embolism on Coumadin Psoriasis Plan: This is a pleasant 49 years old female who presents with syncope. Ammonium Hydroxide Operator evaluated the patient. Device interrogation. Hold lisinopril and Coumadin until INR is therapeutic. I'll up INR level, no small dose of vitamin K is on follow-up the level Labs and medication were reviewed.. Continue same treatment. Continue with symptomatic treatment. Resume home medication. Monitor lytes and vitals. DVT and GI prophylaxis. Further recommendations of the clinical course of the patient DVT prophylaxis: On Coumadin GI Prophylaxis: Pepcid PT/OT: Pending Prognosis is guarded
[2020-02-22] MEDS: carBAMazepine 200 MG TAB PO SCH (15:36)
[2020-02-22] MEDS: GABAPENTIN 300 MG CAP PO SCH ×2 (15:37→21:34)
[2020-02-22] MEDS: CARVEDILOL 6.25 MG TAB PO SCH (16:15)
[2020-02-22 20:30] LABS: Prothrombin Time 53.6 sec (9.0-12.0)
[2020-02-22 20:55] LABS: INR 5.3 (<1.2)
[2020-02-22] MEDS ORDERED: DONEPEZIL 10 MG TAB PO SCH (21:00)
[2020-02-22] MEDS ORDERED: PHENYTOIN SODIUM EXTENDED 100 MG CAP PO SCH (21:00)
[2020-02-22] MEDS ORDERED: ATORVASTATIN 80 MG TAB PO SCH (21:00)
[2020-02-22] MEDS: FAMOTIDINE 20 MG/2 ML VIAL IV SCH (21:34)
[2020-02-23] MEDS: SODIUM CHLORIDE 0.9% 1,000 ML IV SCH (02:24)
[2020-02-23 06:23] LABS: INR 2.3 (<1.2); Prothrombin Time 22.6 sec (9.0-12.0)
[2020-02-23 08:26] VITALS: RESP 16; TEMP 97.9
[2020-02-23] MEDS: CARVEDILOL 6.25 MG TAB PO SCH (08:29)
[2020-02-23] MEDS ORDERED: carBAMazepine 200 MG TAB PO SCH (09:00)
[2020-02-23] MEDS: GABAPENTIN 300 MG CAP PO SCH (09:13)
[2020-02-23] MEDS: carBAMazepine 200 MG TAB PO SCH (09:13)
[2020-02-23] MEDS: FAMOTIDINE 20 MG/2 ML VIAL IV SCH (09:14)
--- NOTE | 2020-02-23 10:29 | PN ---
PROGRESS NOTE Mrs. Campos is a 49-year-old female with known history of cardiomyopathy status post ICD implantation who presented to the hospital for presyncope. She is doing well this morning. Her breathing is better. She denies any dizziness or palpitation. She has history of left-sided weakness. She was started on amiodarone recently as an outpatient. She underwent an echocardiogram that revealed an ejection fraction of 35% to 40%. She had an interrogation of her device that revealed no evidence of malignant arrhythmia. She is anxious to go home today. She continues to be at this point on amiodarone 200 mg twice a day, Lipitor 80 mg daily and Coreg 6.5 mg twice a day. PHYSICAL EXAMINATION: Blood pressure running in the 100s. Heart rate in the 50s to 70s. Lungs: Clear. Heart: Regular rate and rhythm S1, S2. No S3. No rub. Abdomen soft, nontender. Extremities: No edema. Lab data revealed an INR of 2.3. IMPRESSION: 1. Symptoms of dizziness and presyncope. No evidence of malignant arrhythmia. 2. History of cardiomyopathy status post ICD implantation. 3. History of hyperlipidemia. RECOMMENDATIONS: From the cardiac standpoint, she is stable. I will resume her anticoagulation. She will follow up as an outpatient with Dr. Berrios and depending on her blood pressure, further adjustment of her medical regimen will be done. MMWILBERL / JESSIEN: [id number] /
[2020-02-23] MEDS: AMIODARONE 200 MG TAB PO SCH (10:39)
[2020-02-23 12:54] VITALS: BP 115/64; PULSE 64
--- NOTE | 2020-02-23 13:36 | P.DS ---
Providers Date of admission: 02/22/20 01:18 Attending physician: Isatu Estrada Consults: 02/22/20 01:27 Consult Physician Routine Consulting Provider: [facility] Consult Reason/Comments: syncope Do you want consulting provider notified?: Yes Primary care physician: Garth Auguste Hospital Course: Diagnoses: Syncope, with loss of consciousness for 1 minute followed by complete recovery. Throat of cardiac origin History of nonsustained V. tach, on defibrillator Abnormal echocardiogram with ejection fraction 35-40%, with LV wall motion is hypokinetic in several areas including inferior, inferior septal and apical areas Chronic systolic heart failure Coronary heart disease History of CVA with left hemiparesis seizure disorder Pulmonary embolism on Coumadin Psoriasis Hospital course: This is a pleasant 49 years old female with past medical history of coronary artery disease, heart failure, status post pacemaker, CVA, pulmonary embolism on Coumadin, seizure disorder, left side weakness including left arm and leg and foot. Psoriasis. Bilateral glaucoma. Anxiety and depression. She is a patient of Dr. Trevino, she sees Dr. Berrios as an outpatient and Dr. Roberts is his neurologist. Patient states that she has not had a seizure for 10 years and she has been taking her seizure medication regularly. She states that she has stroke in 2007 with residual weakness in the left arm and leg with some left foot drop however she is able to walk on her own and she does not want to use a cane or walker. 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 she came because she fell on the floor, she was talking to her friend on the phone was sitting on the couch and was she stand up she passed out and fell for 1 minute, followed by complete resolution and with full aweakness (Although on the day of discharge she changed her story and she stated that she did not loose consciousness and that all the she tripped with her family when she was trying to stand up and that she stand up very quickly) On admission her INR was 4.6, went up to 6.0, she got 1 mg of vitamin K orally and went down today to 2.3, Dr. Najera resumed her Coumadin at 2 mg compared to home dose of 2.5 mg, patient denies any change in diet. Patient informed she will be discharged on 2 mg of Coumadin and she agrees, also involving lisinopril because of blood pressure was low this morning 96/62, and instructed the patient to check her blood pressure with Dr. Berrios to decide whether to resume lisinopril or not and she verbalized understanding and acceptance She underwent interrogation of her device that revealed no evidence of malignant arrhythmia as per Dr. Najera evaluation Echocardiogram: Ejection fraction 35-40%, basal inferior LV wall motion is hypokinetic in several areas for example inferior, inferior septal, apical areas. Patient returned to her baseline with no dizziness, no chest pain, no more syncope or presyncope attacks. No seizure-like activity. No dyspnea, no fever. No change in urine or bowel habits. Patient is adamant to go home today and she does not want to stay in the hospital especially after she spoke with Dr. Reinaldo Najera the collector cleared her for discharge She will be discharged on Coumadin 2 mg and recommended that she check her INR soon as an outpatient with Dr. Berrios this coming Tuesday and she wished to go for this Tuesday or Tuesday to check her INR with him Problems and management plan were discussed with the patient and he verbalized understanding and acceptance Patient was found stable and can be discharged home however she needs follow-up as an outpatient. Patient was instructed to follow up with PCP Dr. Auguste within one week and patient agrees (patient instructed to follow up with Dr. Auguste office to take the stitches out in one week and she agrees) . Also patient instructed to follow up with her collector Dr. Berrios in one week and she agrees to call and make her own appointments. Appointments could not be made for her today by staff as it is weakened Gen: patient is a AAOx3, no distress. Wound on her left eyelid is healing(3 stitches) CVS: S1-S2, RRR, no murmur Lungs: B/L CTA, no wheezing Abdomen: soft, no distention, no tenderness, positive bowel sounds Extremity: no leg edema or induration Time spent more than 35 minutes Patient Condition at Discharge: Fair Plan - Discharge Summary Discharge Rx Participant: No New Discharge Prescriptions: New Warfarin Sodium [Coumadin] 2 mg PO DAILY #10 tablet Continue Atorvastatin Calcium [Lipitor] 80 mg PO HS Phenytoin Sodium Extended [Dilantin] 100 mg PO HS Donepezil [Aricept] 10 mg PO HS levETIRAcetam [Keppra] 1,500 mg PO BID carBAMazepine [TEGretol] 200 mg PO HS Gabapentin 600 mg PO TID Phenytoin Sodium Extended [Dilantin] 200 mg PO QAM carBAMazepine [TEGretol] 400 mg PO QAM Amiodarone [Cordarone] 200 mg PO BID Carvedilol [Coreg] 6.25 mg PO BID-W/MEALS Discontinued Lisinopril [Prinivil] 10 mg PO DAILY Warfarin Sodium [Coumadin] 2.5 mg PO HS Discharge Medication List Atorvastatin Calcium [Lipitor] 80 mg PO HS 03/08/14 [History] Donepezil [Aricept] 10 mg PO HS 07/11/14 [History] Phenytoin Sodium Extended [Dilantin] 100 mg PO HS 07/11/14 [History] levETIRAcetam [Keppra] 1,500 mg PO BID 03/22/17 [History] Gabapentin 600 mg PO TID 02/20/19 [History] carBAMazepine [TEGretol] 200 mg PO HS 02/20/19 [History] Amiodarone [Cordarone] 200 mg PO BID 02/22/20 [History] Carvedilol [Coreg] 6.25 mg PO BID-W/MEALS 02/22/20 [History] Phenytoin Sodium Extended [Dilantin] 200 mg PO QAM 02/22/20 [History] carBAMazepine [TEGretol] 400 mg PO QAM 02/22/20 [History] Warfarin Sodium [Coumadin] 2 mg PO DAILY #10 tablet 02/23/20 [Rx] Follow up Appointment(s)/Referral(s): Garth Auguste MD [Primary Care Provider] - 1-2 days Arvin Berrios MD [STAFF PHYSICIAN] - 2 Weeks (The office will call the patient on Tuesday02-25-2020 with a date and time of appointment.) Patient Instructions/Handouts: Syncope (DC) Activity/Diet/Wound Care/Special Instructions: Heart healthy diet Activity is limited tell you see your doctor We recommend continue with Coumadin and check her INR within 2-3 days, recommend a follow-up with Dr. Berrios office on this coming Tuesday to check your INR with Discharge Disposition: HOME SELF-CARE
[2020-02-23] MEDS ORDERED: WARFARIN 2 MG TAB PO ONE (18:00)
[2020-02-25 08:38] LABS: Levetiracetam (Keppra) 9.2 ug/mL (3.0-60.0)
== END 2020-02-23 15:15 | disposition home or self-care (01) ==
LOC: EC 21:46 → 1SOBS 02-22 01:18
PROVIDERS: ADMIT Hospitalist; ATTEND Hospitalist
DX: R55 Syncope and collapse (principal); S01.81XA Laceration without foreign body of other part of head, initial encounter; I25.10 Atherosclerotic heart disease of native coronary artery without angina pectoris; G40.909 Epilepsy, unspecified, not intractable, without status epilepticus; R79.1 Abnormal coagulation profile; I11.0 Hypertensive heart disease with heart failure; I50.22 Chronic systolic (congestive) heart failure; I42.0 Dilated cardiomyopathy; I48.0 Paroxysmal atrial fibrillation; E78.5 Hyperlipidemia, unspecified; I69.354 Hemiplegia and hemiparesis following cerebral infarction affecting left non-dominant side; I47.2 Ventricular tachycardia; M25.562 Pain in left knee; Z11.59 Encounter for screening for other viral diseases; F41.9 Anxiety disorder, unspecified; F32.9 Major depressive disorder, single episode, unspecified; L40.9 Psoriasis, unspecified; H40.9 Unspecified glaucoma; M21.372 Foot drop, left foot; H91.92 Unspecified hearing loss, left ear; Z95.810 Presence of automatic (implantable) cardiac defibrillator; F17.200 Nicotine dependence, unspecified, uncomplicated; T45.515A Adverse effect of anticoagulants, initial encounter; Z86.711 Personal history of pulmonary embolism; Z79.01 Long term (current) use of anticoagulants; Z79.899 Other long term (current) drug therapy; Z88.0 Allergy status to penicillin; Z88.1 Allergy status to other antibiotic agents; W18.30XA Fall on same level, unspecified, initial encounter; Y92.009 Unspecified place in unspecified non-institutional (private) residence as the place of occurrence of the external cause; Z87.01 Personal history of pneumonia (recurrent); Z86.32 Personal history of gestational diabetes; Z87.440 Personal history of urinary (tract) infections; Z82.49 Family history of ischemic heart disease and other diseases of the circulatory system
CPT/HCPCS: 96374; 96376; 12013; 90471; 96361 ×2; 99285; 36415; 93005 ×2; 93306; 80156; 80186; 83880; 80053; 80177; 80185; 84484 ×2; 85025; 85610 ×3; 85730; 81003; 71045; 72125; 70486; 70450; 90715; G0378 ×2; U0003; J2001

== ENCOUNTER → 2020-05-20 | Outpatient (CLI) | payer MEDICARE ==
[2020-05-20 19:28] LABS: Carbamazepine (Tegretol) 6.2 ug/mL (4.0-12.0); Phenytoin (Dilantin) 19.7 ug/mL (10.0-20.0)
== END | disposition home or self-care (01) ==
LOC: LABWHC1 09:22
PROVIDERS: ATTEND Psychiatry & Neurology Pain Medicine
DX: G40.909 Epilepsy, unspecified, not intractable, without status epilepticus (principal); Z51.81 Encounter for therapeutic drug level monitoring
CPT/HCPCS: 36415; 80156; 80185

== ENCOUNTER 2020-10-20 12:33 | Inpatient (IN) | payer MEDICARE ==
--- NOTE | 2020-10-20 13:19 | ED ---
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 Patient fell onto her coffee table, striking her backside. She is uncertain exactly what her symptoms began but states that she woke with these symptoms and they were not present yesterday. No pain complaints. She states she fell because her legs were weak and uncoordinated. She states that she's had this issue in the past however it has not affected her ability to walk as much as it did today. She has a previous CVA. She is on Coumadin. She is on multiple seizure medications which she is compliant with. No seizure activity. No cough or fever. No pain complaints. - Related Data Home Medications Medication Instructions Recorded Confirmed Atorvastatin Calcium [Lipitor] 80 mg PO DAILY 03/08/14 10/20/20 Donepezil [Aricept] 10 mg PO HS 07/11/14 10/20/20 levETIRAcetam [Keppra] 1,500 mg PO BID 03/22/17 10/20/20 Gabapentin 600 mg PO TID 02/20/19 10/20/20 Amiodarone [Cordarone] 200 mg PO DAILY 02/22/20 10/20/20 Carvedilol [Coreg] 6.25 mg PO BID-W/MEALS 02/22/20 10/20/20 Phenytoin Sodium Extended 100 mg PO TID 02/22/20 10/20/20 [Dilantin] carBAMazepine [TEGretol] 200 mg PO TID 02/22/20 10/20/20 lisinopriL [Zestril] 10 mg PO DAILY 10/20/20 10/20/20 Allergies Allergy/AdvReac Type Severity Reaction Status Date / Time cephalexin monohydrate Allergy Rash/Hives Verified 10/20/20 13:56 [From Keflex] Penicillins Allergy Anaphylaxis Verified 10/20/20 13:56 Review of Systems ROS Statement: Those systems with pertinent positive or pertinent negative responses have been documented in the HPI. ROS Other: All systems not noted in ROS Statement are negative. Past Medical History Past Medical History: Coronary Artery Disease (CAD), Heart Failure, CVA/TIA, Eye Disorder, Pneumonia, Pulmonary Embolus (PE), Seizure Disorder, Skin Disorder Additional Past Medical History / Comment(s): Last seizure 2009, CVA 2007 with L sided weakness arm and leg and has L foot drop, TIA 2019, cardiomyopathy, R PE and pneumothorax/pneumonia following leg fracture in 1994, gestational diabetes with all pregnancies (4), bilateral glaucoma with surgery, psoriasis in the past, UTIs. History of Any Multi-Drug Resistant Organisms: None Reported Past Surgical History: Pacemaker Additional Past Surgical History / Comment(s): Bilateral eye surgery for glauc emma Past Anesthesia/Blood Transfusion Reactions: No Reported Reaction Type of Cardiac Device: Permanent Pacemaker Device Placement Date:: 2012 Past Psychological History: Anxiety, Depression Smoking Status: Current every day smoker Past Alcohol Use History: Occasional Past Drug Use History: None Reported - Past Family History Father Family Medical History: Coronary Artery Disease (CAD), Myocardial Infarction (ID) Additional Family Medical History / Comment(s): Father is 75 yrs old. He had a silent ID. Mother Additional Family Medical History / Comment(s): Mother is at 32 yrs d/t cardiomyopathy General Exam Limitations: physical limitation General appearance: alert, in no apparent distress Head exam: Present: atraumatic, normocephalic Eye exam: Present: normal appearance, PERRL ENT exam: Present: normal exam Neck exam: Present: normal inspection. Absent: tenderness, meningismus Respiratory exam: Present: normal lung sounds bilaterally. Absent: respiratory distress, wheezes Cardiovascular Exam: Present: regular rate, normal rhythm GI/Abdominal exam: Present: soft. Absent: distended, tenderness, guarding, rebound Extremities exam: Present: normal inspection Neurological exam: Present: alert, oriented X3, motor sensory deficit (Contracture of the left upper extremity with weakness and ataxia, she has ataxia on both lower extremities and her right upper extremity as well. No focal weakness on the right, no weakness in the left lower extremity, 5 out of 5 strength.) Psychiatric exam: Present: normal affect, normal mood Skin exam: Present: warm, dry, intact. Absent: cyanosis, diaphoretic Course Vital Signs 10/20/20 10/20/20 12:38 15:01 Temperature 98.3 F Pulse Rate 70 80 Respiratory 18 18 Rate Blood Pressure 136/71 128/73 O2 Sat by Pulse 100 100 Oximetry EKG Findings - EKG Comments: EKG Findings:: Normal sinus rhythm, incomplete left bundle, rate of 64, WI interval 158, QRS duration 118, QTC 484 Medical Decision Making - Medical Decision Making 50-year-old female who had presented for evaluation of bilateral lower extremity weakness and clumsiness. Previous history of CVA with residual left-sided weakness, contracture of the left upper extremity. Patient has 5 out of 5 strength in all extremities, she has ataxia in all extremities on exam. Head CT is performed which shows a large area of encephalomalacia from previous CVA in the right hemisphere, no acute intracranial hemorrhage or mass effect. Patient has a normal CBC, normal CMP. She's given aspirin in the emergency department. I do have a suspicion for CVA versus alternative cause of limb ataxia. Case discussed with Dr. Porter who will admit, neurology placed on consult. - Lab Data Result diagrams: 10/20/20 13:11 10/20/20 13:11 Lab Results 10/20/20 10/20/20 10/20/20 Range/Units 13:11 13:11 13:11 WBC 3.8 (3.8-10.6) k/uL RBC 4.04 (3.80-5.40) m/uL Hgb 13.0 (11.4-16.0) gm/dL Hct 38.8 (34.0-46.0) % MCV 96.1 (80.0-100.0) fL MCH 32.1 (25.0-35.0) pg MCHC 33.4 (31.0-37.0) g/dL RDW 13.3 (11.5-15.5) % Plt Count 190 (150-450) k/uL MPV 7.4 Neutrophils % 63 % Lymphocytes % 26 % Monocytes % 7 % Eosinophils % 1 % Basophils % 0 % Neutrophils # 2.4 (1.3-7.7) k/uL Lymphocytes # 1.0 (1.0-4.8) k/uL Monocytes # 0.3 (0-1.0) k/uL Eosinophils # 0.1 (0-0.7) k/uL Basophils # 0.0 (0-0.2) k/uL PT 10.3 (9.0-12.0) sec INR 1.0 (<1.2) APTT 22.1 (22.0-30.0) sec Sodium 136 L (137-145) mmol/L Potassium 3.7 (3.5-5.1) mmol/L Chloride 103 (98-107) mmol/L Carbon Dioxide 26 (22-30) mmol/L Anion Gap 7 mmol/L BUN 7 (7-17) mg/dL Creatinine 0.48 L (0.52-1.04) mg/dL Est GFR (CKD-EPI)AfAm >90 (>60 ml/min/1.73 sqM) Est GFR (CKD-EPI)NonAf >90 (>60 ml/min/1.73 sqM) Glucose 101 H (74-99) mg/dL Calcium 8.4 (8.4-10.2) mg/dL Magnesium 1.7 (1.6-2.3) mg/dL Total Bilirubin 0.4 (0.2-1.3) mg/dL AST 27 (14-36) U/L ALT 17 (4-34) U/L Alkaline Phosphatase 68 (38-126) U/L Troponin I (0.000-0.034) ng/mL Total Protein 6.7 (6.3-8.2) g/dL Albumin 3.8 (3.5-5.0) g/dL 10/20/20 Range/Units 13:11 WBC (3.8-10.6) k/uL RBC (3.80-5.40) m/uL Hgb (11.4-16.0) gm/dL Hct (34.0-46.0) % MCV (80.0-100.0) fL MCH (25.0-35.0) pg MCHC (31.0-37.0) g/dL RDW (11.5-15.5) % Plt Count (150-450) k/uL MPV Neutrophils % % Lymphocytes % % Monocytes % % Eosinophils % % Basophils % % Neutrophils # (1.3-7.7) k/uL Lymphocytes # (1.0-4.8) k/uL Monocytes # (0-1.0) k/uL Eosinophils # (0-0.7) k/uL Basophils # (0-0.2) k/uL PT (9.0-12.0) sec INR (<1.2) APTT (22.0-30.0) sec Sodium (137-145) mmol/L Potassium (3.5-5.1) mmol/L Chloride (98-107) mmol/L Carbon Dioxide (22-30) mmol/L Anion Gap mmol/L BUN (7-17) mg/dL Creatinine (0.52-1.04) mg/dL Est GFR (CKD-EPI)AfAm (>60 ml/min/1.73 sqM) Est GFR (CKD-EPI)NonAf (>60 ml/min/1.73 sqM) Glucose (74-99) mg/dL Calcium (8.4-10.2) mg/dL Magnesium (1.6-2.3) mg/dL Total Bilirubin (0.2-1.3) mg/dL AST (14-36) U/L ALT (4-34) U/L Alkaline Phosphatase (38-126) U/L Troponin I <0.012 (0.000-0.034) ng/mL Total Protein (6.3-8.2) g/dL Albumin (3.5-5.0) g/dL Disposition Clinical Impression: History of seizure disorder, History of stroke, CVA (cerebral vascular accident) Disposition: ADMITTED IP TO THIS [facility] Condition: Stable Is patient prescribed a controlled substance at d/c from ED?: No Referrals: Garth Auguste MD [Primary Care Provider] - 1-2 days Decision to Admit Reason: Admit from EC Decision Date: 10/20/20 Decision Time: 15:20
[2020-10-20 13:31] LABS: Basophils % (A) 0 %; Eosinophils # (A) 0.1 k/uL (0-0.7); Eosinophils % (A) 1 %; HCT 38.8 % (34.0-46.0); Lymphocytes % (A) 26 %; MCH 32.1 pg (25.0-35.0); MCHC 33.4 g/dL (31.0-37.0); MCV 96.1 fL (80.0-100.0); Mean Platelet Volume 7.4; Monocytes # (A) 0.3 k/uL (0-1.0); Monocytes % (A) 7 %; Neutrophils # (A) 2.4 k/uL (1.3-7.7); Neutrophils % (A) 63 %; Platelet Count 190 k/uL (150-450); RBC 4.04 m/uL (3.80-5.40); RDW 13.3 % (11.5-15.5); WBC 3.8 k/uL (3.8-10.6)
[2020-10-20 13:48] LABS: Partial Thromboplastin Time 22.1 sec (22.0-30.0); Prothrombin Time 10.3 sec (9.0-12.0)
[2020-10-20 13:58] LABS: ALT 17 U/L (4-34); AST 27 U/L (14-36); African American GFR (CKD) >90 (>60 ml/min/1.73 sqM); Albumin 3.8 g/dL (3.5-5.0); Alkaline Phosphatase 68 U/L (38-126); Anion Gap 7 mmol/L; Blood Urea Nitrogen 7 mg/dL (7-17); Calcium 8.4 mg/dL (8.4-10.2); Carbon Dioxide 26 mmol/L (22-30); Chloride 103 mmol/L (98-107); Glucose 101 mg/dL (74-99); Magnesium 1.7 mg/dL (1.6-2.3); Non-African American GFR(CKD) >90 (>60 ml/min/1.73 sqM); Potassium 3.7 mmol/L (3.5-5.1); Sodium 136 mmol/L (137-145); Total Bilirubin 0.4 mg/dL (0.2-1.3); Total Protein 6.7 g/dL (6.3-8.2)
--- NOTE | 2020-10-20 14:08 | CT ---
EXAMINATION TYPE: CT brain wo con DATE OF EXAM: 10/20/2020 COMPARISON: Prior CT brain 02/21/2020 HISTORY: generalized weakness, inability to ambulate CT DLP: 1099.4 mGycm. Automated Exposure Control for Dose Reduction was Utilized. TECHNIQUE: CT scan of the head is performed without contrast. FINDINGS: There is no acute intracranial hemorrhage, mass effect, or midline shift identified. Foc us of encephalomalacia present in the right cerebellar hemisphere shows a similar appearance and is w edge-shaped, vermis on the right also shows similar encephalomalacia. Encephalomalacia again noted in the distribution of the right middle cerebral artery with ex vacuo phenomenon along the right latera l ventricle, left frontal encephalomalacia is also again noted. The ventricles and sulci are within n ormal limits in size. The globes are intact and the visualized sinuses are remarkable for inflammato ry change in the left maxillary sinus, ethmoid air cells. IMPRESSION: No acute intracranial hemorrhage, mass effect, or midline shift is seen. 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
[2020-10-20] MEDS ORDERED: ASPIRIN 325 MG TAB PO STA (15:03)
[2020-10-20] MEDS ORDERED: SODIUM CHLORIDE 0.9% 1,000 ML IV SCH (15:30)
--- NOTE | 2020-10-20 16:35 | US ---
EXAMINATION TYPE: US carotid duplex BILAT DATE OF EXAM: 10/20/2020 COMPARISON: 02/25/2018 CLINICAL HISTORY: 50-year-old female Stenosis TECHNIQUE: Carotid duplex ultrasound examination. Indirect Doppler criteria was utilized. FINDINGS: EXAM MEASUREMENTS: RIGHT: Peak Systolic Velocity (PSV) cm/sec ----- Right CCA: 79.0 ----- Right ICA: 130.7 ----- Right ECA: 71.3 ICA/CCA ratio: 1.7 RIGHT: End Diastole cm/sec ----- Right CCA: 23.0 ----- Right ICA: 38.6 ----- Right ECA: 15.3 LEFT: Peak Systolic Velocity (PSV) cm/sec ----- Left CCA: 91.1 ----- Left ICA: 111.2 ----- Left ECA: 117.7 ICA/CCA ratio: 1.2 LEFT: End Diastole cm/sec ----- Left CCA: 26.3 ----- Left ICA: 36.1 ----- Left ECA: 19.2 VERTEBRALS (direction of flow): Right Vertebral: Antegrade Left Vertebral: Antegrade Rhythm: Normal Gr scale images show only mild atherosclerotic change of the bifurcations. IMPRESSION: Very mildly elevated velocities in the proximal right ICA. Favor turbulent flow rather than a mild to moderate stenosis. Criteria for Assigning % of Stenosis / Diameter reduction (Estimation based on the indirect measurements of the internal carotid artery velocities (ICA PSV). 1. Normal (no stenosis)=ICA PSV < 125 cm/s: ratio < 2.0: ICA EDV<40 cm/s. 2. Less than 50% stenosis=ICA PSV < 125 cm/s: ratio < 2.0: ICA EDV<40 cm/s. 3. 50 to 69% stenosis=ICA PSV of 125 to 230 cm/s: ration 2.0 ? 4.0: ICA EDV 40-100 cm/s. 4. Greater than 70% stenosis to near occlusion= ICA PSV > 230 cm/s: ratio > 4.0: ICA EDV > 100 cm/s. 5. Near occlusion= ICA PSV velocities may be low or undetectable: variable ratio and ICA EDV. 6. Total occlusion=unable to detect flow.
--- NOTE | 2020-10-20 18:43 | P.HPIM ---
History of Present Illness This is a pleasant 50 years old female. She is a patient of Dr. Auguste with past medical history of coronary artery disease, chronic heart failure, status post pacemaker,CVA with residual left upper extremity weakness and contracture, pulmonary embolism secondary to DVT in 1994 secondary to DVT and leg fracture on Coumadin. Also history of seizure disorder last seizure was 10 years ago, tonic-clonic proceeded with aura on multiple seizure medication including Keppra, Tegretol and Dilantin. Chronic left foot drop. She is following up with Dr. Berrios. Also she follows up with Dr. Roberts for sciatica pain Says that she came because she could not walk this morning, at baseline she wants by herself without the cane or walker however this morning she has difficulty walking without complaining of from weakness in her lower extremities. Also she had right arm shakiness that lasted for 5 minutes Also she's been complaining from some urinary urgency for about one week She denies chest pain or dyspnea or headache or weakness in the arm or legs. No numbness. No blurred vision. No abdominal pain or nausea vomiting or diarrhea. No fever. No back pain She smokes about 1 pack per week, she wants to quit but she declined nicotine patch when offered. She denies alcohol or illicit drugs Vitals are stable. Labs including CBC, INR, BMP and liver enzymes are unremarkable. Troponin is negative less than 0.012. Coronal virus not detected. CT of the brain showing no hemorrhage, mass effect or midline shift. Carotid Doppler showing mild to moderate right ICA stenosis In the emergency room patient was started on aspirin 325 mg Review of Systems CONSTITUTIONAL: No fever, no malaise, no fatigue. HEENT: No recent visual problems or hearing problems. Denied any sore throat. CARDIOVASCULAR: No orthopnea, PND, no palpitations, no syncope. PULMONARY: No shortness of breath, no cough, no hemoptysis. GASTROINTESTINAL: No diarrhea, no nausea, no vomiting, no abdominal pain. Normoactive bowel sounds. NEUROLOGICAL: No headaches, no numbness. HEMATOLOGICAL: Denies any bleeding or petechiae. GENITOURINARY: Denies any burning micturition, frequency, or urgency. MUSCULOSKELETAL/RHEUMATOLOGICAL: Denies any joint pain, swelling, or any muscle pain. ENDOCRINE: Denies any polyuria or polydipsia. 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 History of Any Multi-Drug Resistant Organisms: None Reported Past Surgical History: Pacemaker Additional Past Surgical History / Comment(s): Bilateral eye surgery for glaucoma Past Anesthesia/Blood Transfusion Reactions: No Reported Reaction Type of Cardiac Device: Permanent Pacemaker Device Placement Date:: 2012 Past Psychological History: Anxiety, Depression Smoking Status: Current every day smoker Past Alcohol Use History: Occasional Past Drug Use History: None Reported - Past Family History Father Family Medical History: Coronary Artery Disease (CAD), Myocardial Infarction (NV) Additional Family Medical History / Comment(s): Father is 75 yrs old. He had a silent NV. Mother Additional Family Medical History / Comment(s): Mother is at 32 yrs d/t cardiomyopathy Medications and Allergies Home Medications Medication Instructions Recorded Confirmed Type Atorvastatin Calcium [Lipitor] 80 mg PO DAILY 03/08/14 10/20/20 History Donepezil [Aricept] 10 mg PO HS 07/11/14 10/20/20 History levETIRAcetam [Keppra] 1,500 mg PO BID 03/22/17 10/20/20 History Gabapentin 600 mg PO TID 02/20/19 10/20/20 History Amiodarone [Cordarone] 200 mg PO DAILY 02/22/20 10/20/20 History Carvedilol [Coreg] 6.25 mg PO BID-W/MEALS 02/22/20 10/20/20 History Phenytoin Sodium Extended 100 mg PO TID 02/22/20 10/20/20 History [Dilantin] carBAMazepine [TEGretol] 200 mg PO TID 02/22/20 10/20/20 History lisinopriL [Zestril] 10 mg PO DAILY 10/20/20 10/20/20 History Allergies Allergy/AdvReac Type Severity Reaction Status Date / Time cephalexin monohydrate Allergy Rash/Hives Verified 10/20/20 13:56 [From Keflex] Penicillins Allergy Anaphylaxis Verified 10/20/20 13:56 Physical Exam Vitals: Vital Signs Temp Pulse Resp BP Pulse Ox 10/20/20 16:49 75 16 112/72 97 10/20/20 15:01 80 18 128/73 100 10/20/20 12:38 98.3 F 70 18 136/71 100 Intake and Output 10/20/20 10/20/20 10/20/20 06:59 14:59 22:59 Other: Weight 57.153 kg GENERAL: The patient is alert and oriented x3, not in any acute distress. Well developed, well nourished. HEENT: Pupils are round and equally reacting to light. EOMI. No scleral icterus. No conjunctival pallor. Normocephalic, atraumatic. No pharyngeal erythema. No thyromegaly. CARDIOVASCULAR: S1 and S2 present. No murmurs, rubs, or gallops. PULMONARY: Chest is clear to auscultation, no wheezing or crackles. ABDOMEN: Soft, nontender, nondistended, normoactive bowel sounds. No palpable organomegaly. MUSCULOSKELETAL: No joint swelling or deformity. EXTREMITIES: No cyanosis, clubbing, or pedal edema. -NEUROLOGICAL: Cranial nerves are grossly intact. Meningeal signs are absent. Strength 5/5 in right upper extremity and left upper extremity is contracted in a flexed position. Lower extremity strength is felt symmetrical with mild more no weakness. Sensation is intact. SKIN: No rashes. No petechiae Results CBC & Chem 7: 10/20/20 13:11 10/20/20 13:11 Labs: Abnormal Lab Results - Last 24 Hours (Table) 10/20/20 Range/Units 13:11 Sodium 136 L (137-145) mmol/L Creatinine 0.48 L (0.52-1.04) mg/dL Glucose 101 H (74-99) mg/dL Assessment and Plan Assessment: difficulty walking since morning with five-minute shakiness in the upper extremity Chronic systolic CHF 35-40% History of seizure Chronic systolic heart failure Coronary heart disease History of CVA with left hemiparesis Chronic left foot drop History of Sciatica nerve pain History of Pulmonary embolism on Coumadin Psoriasis Plan: This is a pleasant 50 years old female who presents with walking difficulty and right arm shakiness. Continue with aspirin. Neurology consult We will check Dilantin, Keppra Tegretol levels. Check TSH, B12 and hemoglobin A1c Continue with seizure medication. Check EEG Labs and medication were reviewed.. Continue same treatment. Continue with symptomatic treatment. Resume home medication. Monitor lytes and vitals. DVT and GI prophylaxis. Further recommendations depends on the clinical course of the patient DVT prophylaxis: Subcutaneous heparin, tell INR is therapeutic while on Coumadin GI Prophylaxis: Pepcid PT/OT: Pending Prognosis is guarded
[2020-10-20 20:34] LABS: Phenytoin (Dilantin) 18.1 ug/mL
[2020-10-20] MEDS: carBAMazepine 200 MG TAB PO SCH (20:34)
[2020-10-20] MEDS: FAMOTIDINE 20 MG/2 ML VIAL IV SCH (20:34)
[2020-10-20] MEDS: GABAPENTIN 300 MG CAP PO SCH (20:34)
[2020-10-20] MEDS: DONEPEZIL 10 MG TAB PO SCH (20:34)
[2020-10-20] MEDS: PHENYTOIN SODIUM EXTENDED 100 MG CAP PO SCH (20:34)
[2020-10-20] MEDS: HEPARIN SODIUM,PORCINE 5,000 UNIT/ML 1 ML VIAL SQ SCH (20:34)
[2020-10-20 21:36] LABS: T4, Free (Free Thyroxine) 2.37 ng/dL (0.78-2.19)
--- NOTE | 2020-10-20 22:38 | P.CNNES ---
History of Present Illness Consult date: 10/20/20 Requesting physician: J Carlos Lilly Reason for Consult: Limb ataxia, concern for CVA History of Present Illness: Patient is a 50-year-old female, with history of seizure disorder, which is under remission. Patient is on multiple seizure medications including Dilantin 100 mg 3 times a day, Tegretol 200 mg 3 times a day and Keppra 1500 mg twice a day. Patient is also on Neurontin 600 mg 3 times a day. Patient follows up with Dr Gris crenshaw. Patient states that she has not had any seizure for the last 10 years and the seizures are under control. Her seizures used to be generalized tonic-clonic. Patient states that she never drinks alcohol. On Tuesday, 2 days ago, at 9 PM she drank a big cup of White [place] vodka. The next day on Tuesday she was feeling fine. However this morning patient states that she woke up this morning and wanted to get up and she fell hitting her back on the coffee table. She couldn't walk, was staggering. Couldn't walk in a straight line. Patient has developed acute onset of ataxia, imbalance and falls. She got concerned therefore came to the ER for evaluation, and arrived here at 12:33 PM. Patient's vital signs on arrival blood pressure 136/71, pulse is 70, temperature 98.3. CT head showed no acute intracranial process. Multifocal chronic cerebrovascula r accidents. Focus of encephalomalacia present in the right cerebellar hemisphere shows a similar appearance and is that shaped, vermis on the right also shows similar encephalomalacia. In summary she again noted in the distribution of the right middle cerebral artery with ex vacuo phenomenon along the right lateral ventricle, left frontal encephalomalacia is also seen. Carotid Doppler showed very mildly elevated velocities in the proximal right ICA. Favor turbulent flow rather than a mild to moderate stenosis. Patient's blood test shows normal CBC with MCV 96.1, PT/PTT normal, sodium 136 potassium 3.7, renal functions normal. Hepatic panel normal. TSH is very decreased <0.015, free T4 is elevated 2.37. Her Dilantin level is on upper limits of normal 18.1, as well as carbamazepine 12.0 (4-12). As per recommendation, patient's on multiple drugs may experience toxicity at within the therapeutic range. Patient is already on 3 other seizure medications as mentioned. Patient's previous CTA of head and neck from 02/22/2019 showed a 4 mm saccular aneurysm projecting posteriorly from the supraclinoid right ICA prior to the carotid terminus. Hypoplastic A1 segment left anterior cerebral artery. Moderate to severe atherosclerotic narrowing of the bilateral cavernous segment internal carotid arteries. No large vessel intracranial arterial occlusion. CTA of the neck showed mild atherosclerotic change at the bilateral carotid bulbs without hemodynamically significant stenosis in either ICA. Moderate focal atherosclerotic narrowing proximal right subclavian artery. Thyromegaly measuring up to 7 cm possible goiter. Patient's last 2-D echo from 02/22/2020 showed paced rhythm. Left-ventricular systolic function is moderately impaired with EF between 35-40%. Basal inferior, basal inferior septal, mid inferior, mid inferior septal, apical inferior, apical septum lateral ventricular wall motion are all hypokinetic. Left atrium is severely dilated. Patient also has history of a stroke with mild left hemiparesis. Patient also has history of DVT and PE, currently on antiplatelet correlation with warfarin. However patient states that she has supply of Eloquis for 3 months before she has stopped warfarin and is taking Eliquis. Patient states that 2 days ago she stopped taking Eliquis and is now back on warfarin. Patient has a pacemaker, cannot have MRI of the brain. Review of Systems As above in detail. All other review of systems unremarkable. Denies any abdominal pain, nausea vomiting diarrhea. 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 History of Any Multi-Drug Resistant Organisms: None Reported Past Surgical History: Pacemaker Additional Past Surgical History / Comment(s): Bilateral eye surgery for glaucoma Past Anesthesia/Blood Transfusion Reactions: No Reported Reaction Type of Cardiac Device: Permanent Pacemaker Device Placement Date:: 2012 Past Psychological History: Anxiety, Depression Smoking Status: Current every day smoker Past Alcohol Use History: Occasional Past Drug Use History: None Reported - Past Family History Father Family Medical History: Coronary Artery Disease (CAD), Myocardial Infarction (CA) Additional Family Medical History / Comment(s): Father is 75 yrs old. He had a silent CA. Mother Additional Family Medical History / Comment(s): Mother is at 32 yrs d/t cardiomyopathy Medications and Allergies Home Medications Medication Instructions Recorded Confirmed Type Atorvastatin Calcium [Lipitor] 80 mg PO DAILY 03/08/14 10/20/20 History Donepezil [Aricept] 10 mg PO HS 07/11/14 10/20/20 History levETIRAcetam [Keppra] 1,500 mg PO BID 03/22/17 10/20/20 History Gabapentin 600 mg PO TID 02/20/19 10/20/20 History Amiodarone [Cordarone] 200 mg PO DAILY 02/22/20 10/20/20 History Carvedilol [Coreg] 6.25 mg PO BID-W/MEALS 02/22/20 10/20/20 History Phenytoin Sodium Extended 100 mg PO TID 02/22/20 10/20/20 History [Dilantin] carBAMazepine [TEGretol] 200 mg PO TID 02/22/20 10/20/20 History lisinopriL [Zestril] 10 mg PO DAILY 10/20/20 10/20/20 History Allergies Allergy/AdvReac Type Severity Reaction Status Date / Time cephalexin monohydrate Allergy Rash/Hives Verified 10/20/20 13:56 [From Keflex] Penicillins Allergy Anaphylaxis Verified 10/20/20 13:56 Physical Examination - Vital Signs Vital Signs: Vital Signs Temp Pulse Pulse Resp BP BP Pulse Ox 10/20/20 17:38 97.6 F 70 16 118/59 98 10/20/20 16:49 75 16 112/72 97 10/20/20 15:01 80 18 128/73 100 10/20/20 12:38 98.3 F 70 18 136/71 100 Intake and Output 10/20/20 10/20/20 10/20/20 06:59 14:59 22:59 Intake Total 0 Output Total 300 Balance -300 Intake: Oral 0 Output: Emesis 300 Other: Weight 57.153 kg 60 kg On examination patient is a middle aged female, in no acute distress. Patient is alert and awake fully oriented. Her speech and language functions are normal. Attention, concentration, fund of knowledge is adequate. On cranial exam edition pupils are round and reacting, visual shetty appears full, extraocular muscles are intact, patient has bilateral end gaze nystagmus noted. Face is symmetric, tongue protrudes to the midline. Palatal elevation sensation normal, hearing and shoulder shrug normal. On muscle strength testing the strength appears normal in the arms and legs distally and proximally except left deltoid may be 5-. Sensory to touch is significantly decreased in the left arm as compared to the right. Sensations is slightly decreased in the left leg as compared to the right. Patient has ataxia for [id number] and [id number] testing bilaterally. Reflexes are 2+ in the upper limbs, cannot check in the lower limbs as patient tenses her legs. Plantars are downgoing. Bulk of muscles normal. Tone is slightly increased on the left side. Gait deferred. On general examination there is no obvious bruit, S1 and S2 audible, abdomen soft nontender. Chest is clear. Peripheral pulses present no edema. Results - Laboratory Findings CBC and BMP: 10/20/20 13:11 10/20/20 13:11 Abnormal Lab Findings: Abnormal Labs 10/20/20 10/20/20 13:11 18:58 Sodium 136 L Creatinine 0.48 L Glucose 101 H TSH <0.015 L Free T4 2.37 H Assessment and Plan Assessment: * Acute onset of gait ataxia, frequent falls and imbalance. Patient takes relatively high-dose of multiple antiepileptic medications. Patient drank a big cup of White [place] vodka 24 hours prior, which probably triggered acute ataxia and gait imbalance. CVA is also in the differential, as patient has multiple strokes in the past, and she is on warfarin with subtherapeutic INR. * History of multiple strokes in the past. 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 Plan: * Patient's seizure have been in remission for last 10 years. Patient is taking multiple antiepileptic medication at a fairly high dose. I recommended decreasing the dose of Tegretol slightly, as the levels are very borderline, intact slightly toxic. Patient does not want to make any changes in her seizure medications, as she states her seizures are very well controlled with current regimen. We will follow patient clinically. * Await B12, folate levels. * Treatment of hyperthyroidism as per IM. * Patient has history of multiple strokes in the past. Patient currently not on any anticoagulants or antiplatelets. Agree with starting aspirin 325 mg daily. * EEG has been ordered. * 2-D echo. * Patient has history of cerebral aneurysm, may consider follow-up with neuro in [place] as outpatient.
[2020-10-21 01:33] LABS: Folate, Serum 5.1 ng/mL
[2020-10-21 03:26] LABS: Hemoglobin A1C 5.1 % (4.0-6.0)
[2020-10-21 04:48] LABS: Cholesterol 148 mg/dL (<200); HDL Cholesterol 60 mg/dL (40-60); LDL Cholesterol,Calculated 75 mg/dL (0-99); Triglycerides 67 mg/dL (<150)
[2020-10-21] MEDS ORDERED: ASPIRIN 325 MG TAB PO SCH (09:00)
[2020-10-21] MEDS ORDERED: lisinopriL 10 MG TAB PO SCH (09:00)
[2020-10-21] MEDS: AMIODARONE 200 MG TAB PO SCH (09:32)
[2020-10-21] MEDS: ATORVASTATIN 80 MG TAB PO SCH ×3 (09:32→21:32)
[2020-10-21] MEDS: carvediloL 6.25 MG TAB PO SCH ×2 (09:32→17:04)
[2020-10-21] MEDS: GABAPENTIN 300 MG CAP PO SCH ×3 (09:32→21:34)
[2020-10-21] MEDS: FAMOTIDINE 20 MG/2 ML VIAL IV SCH ×2 (09:32→21:33)
[2020-10-21] MEDS: carBAMazepine 200 MG TAB PO SCH ×3 (09:32→21:33)
[2020-10-21] MEDS: PHENYTOIN SODIUM EXTENDED 100 MG CAP PO SCH ×3 (09:32→21:34)
[2020-10-21] MEDS: HEPARIN SODIUM,PORCINE 5,000 UNIT/ML 1 ML VIAL SQ SCH ×2 (09:35→21:33)
--- NOTE | 2020-10-21 10:01 | P.PN ---
Subjective This is a pleasant 50 years old female. She is a patient of Dr. Auguste with past medical history of coronary artery disease, chronic heart failure, status post pacemaker,CVA with residual left upper extremity weakness and contracture, pulmonary embolism secondary to DVT in 1994 secondary to DVT and leg fracture on Coumadin. Also history of seizure disorder last seizure was 10 years ago, tonic-clonic proceeded with aura on multiple seizure medication including Keppra, Tegretol and Dilantin. Chronic left foot drop. She is following up with Dr. Berrios. Also she follows up with Dr. Roberts for sciatica pain Says that she came because she could not walk this morning, at baseline she wants by herself without the cane or walker however this morning she has difficulty walking without complaining of from weakness in her lower extremities. Also she had right arm shakiness that lasted for 5 minutes Also she's been complaining from some urinary urgency for about one week She denies chest pain or dyspnea or headache or weakness in the arm or legs. No numbness. No blurred vision. No abdominal pain or nausea vomiting or diarrhea. No fever. No back pain She smokes about 1 pack per week, she wants to quit but she declined nicotine patch when offered. She denies alcohol or illicit drugs Vitals are stable. Labs including CBC, INR, BMP and liver enzymes are unremarkable. Troponin is negative less than 0.012. Coronal virus not det ected. CT of the brain showing no hemorrhage, mass effect or midline shift. Carotid Doppler showing mild to moderate right ICA stenosis In the emergency room patient was started on aspirin 325 mg 10/21/2020 Patient was lying in bed today she felt mildly dizzy earlier but not currently. We are still waiting for neurologist to assess her for her working difficulty. No more shakiness in her extremities including no shakiness in the right upper extremity. Also today patient was moving her left upper extremity and arm but states that for many years when she moves with she has pain in her left s houlder, we will order left shoulder x-ray. Labs including CBC, BMP were unremarkable upon admission, hemoglobin A1c is normal to 5.1%. Liver enzymes not elevated. Troponin is negative. Lipid profi le is not elevated. She has low normal vitamin B12 at 267 and signs of hyperthyroidism with high thaddeus e T4 at 2.3 and low TSH less than 0.015. Patient also telling me that she follows up with Dr. Berrios, she could not remember why and that he advised her to take Coumadin but she kept taking liquids however she is willing to go back to Coumadin, check with laboratory miller team Dr. Berrios was seen the patient last May for routine visit for her dilated cardiomyopathy with systolic CHF and history of V. tach with atrial fibrillation and she was on Coumadin 2.5 mg daily. On admission her INR is subtherapeutic at 1.0, we'll start Coumadin 5 mg and directed onto 2.5 mg. Urine analysis and bladder scan are still pending. She was a little hypotensive this morning 95/50. She was concerned about that s tates that usually his blood pressure is 120s/80s. She is currently on Coreg 6.25 mg and lisinopril 10 mg daily which we don't allow her to 5 mg daily echocardiogram and EEG are pending Review of Systems CONSTITUTIONAL: No fever, no malaise, no fatigue. HEENT: No recent visual problems or hearing problems. Denied any sore throat. CARDIOVASCULAR: No orthopnea, PND, no palpitations, no syncope. PULMONARY: No shortness of breath, no cough, no hemoptysis. GASTROINTESTINAL: No diarrhea, no nausea, no vomiting, no abdominal pain. Normoactive bowel sounds. NEUROLOGICAL: No headaches, no numbness. No back pain Active Medications Generic Name Dose Route Start Last Admin Trade Name Freq PRN Reason Stop Dose Admin Amiodarone HCl 200 mg 10/21/20 09:00 10/21/20 09:32 Amiodarone 200 Mg Tab PO 200 mg DAILY ADDIE Administration Aspirin 325 mg 10/21/20 09:00 10/21/20 09:32 Aspirin 325 Mg Tab PO 325 mg DAILY ADDIE Administration Atorvastatin Calcium 80 mg 10/21/20 21:00 Atorvastatin 80 Mg Tab PO HS ADDIE Carbamazepine 200 mg 10/20/20 22:00 10/21/20 09:32 Carbamazepine 200 Mg Tab PO 200 mg TID ADDIE Administration Carvedilol 6.25 mg 10/21/20 07:30 10/21/20 09:32 Carvedilol 6.25 Mg Tab PO 6.25 mg BID-W/MEALS ADDIE Administration Donepezil HCl 10 mg 10/20/20 21:00 10/20/20 20:34 Donepezil 10 Mg Tab PO 10 mg HS ADDIE Administration Famotidine 20 mg 10/20/20 21:00 10/21/20 09:32 Famotidine 20 Mg/2 Ml Vial IV 20 mg Q12HR ADDIE Administration Gabapentin 600 mg 10/20/20 22:00 10/21/20 09:32 Gabapentin 300 Mg Cap PO 600 mg TID [facility] Administration Heparin Sodium (Porcine) 5,000 unit 10/20/20 21:00 10/21/20 09:35 Heparin Sodium,Porcine 5,000 Unit/Ml 1 Ml Vial SQ 5,000 unit Q12HR ADDIE Administration Levetiracetam 1,500 mg 10/20/20 21:00 10/21/20 09:32 Levetiracetam 750 Mg Tab PO 1,500 mg BID [facility] Administration Lisinopril 10 mg 10/21/20 09:00 Lisinopril 10 Mg Tab PO DAILY [facility] Methimazole 5 mg 10/21/20 09:30 Methimazole 5 Mg Tab PO TID [facility] Miscellaneous Information 0 each 10/21/20 09:29 Warfarin Per Pharmacy MISCELLANE DIRECTED PRN PER PROTOCOL Phenytoin Sodium 100 mg 10/20/20 22:00 10/21/20 09:32 Phenytoin Sodium Extended 100 Mg Cap PO 100 mg TID [facility] Administration Warfarin Sodium 5 mg 10/21/20 09:23 Warfarin 5 Mg Tab PO DAILY@1800 [facility] Protocol Objective - Vital Signs Vital signs: Vital Signs Temp 98.0 F 10/21/20 08:00 Pulse 76 10/21/20 08:00 Resp 18 10/21/20 08:00 BP 112/58 10/21/20 08:00 Pulse Ox 94 L 10/21/20 08:52 Intake & Output 10/20/20 10/21/20 10/21/20 18:59 06:59 18:59 Intake Total 0 Output Total 300 Balance -300 Weight 60 kg 50 kg Intake: Oral 0 Output: Emesis 300 Other: # Voids 1 - Exam GENERAL: The patient is alert and oriented x3, not in any acute distress. Well developed, well nourished. HEENT: Pupils are round and equally reacting to light. EOMI. No scleral icterus. No conjunctival pallor. Normocephalic, atraumatic. No pharyngeal erythema. No thyromegaly. CARDIOVASCULAR: S1 and S2 present. No murmurs, rubs, or gallops. PULMONARY: Chest is clear to auscultation, no wheezing or crackles. ABDOMEN: Soft, nontender, nondistended, normoactive bowel sounds. No palpable organomegaly. MUSCULOSKELETAL: No joint swelling or deformity. EXTREMITIES: No cyanosis, clubbing, or pedal edema. -NEUROLOGICAL: Cranial nerves are grossly intact. Meningeal signs are absent. Strength 5/5 in right upper extremity and left upper extremity is not contracted today and she can move it, however she has been a shoulder with abduction in. Lower extremity strength is felt symmetrical with mild more no weakness. Sensation is intact. SKIN: No rashes. No petechiae - Labs CBC & Chem 7: 10/20/20 13:11 10/20/20 13:11 Labs: Abnormal Lab Results - Last 24 Hours (Table) 10/20/20 10/20/20 Range/Units 13:11 18:58 Sodium 136 L (137-145) mmol/L Creatinine 0.48 L (0.52-1.04) mg/dL Glucose 101 H (74-99) mg/dL TSH <0.015 L (0.465-4.680) mIU/L Free T4 2.37 H (0.78-2.19) ng/dL Assessment and Plan Assessment: difficulty walking since morning with five-minute shakiness in the upper extremity Hyperthyroidism, start the patient on methimazole 5 mg 3 times a day Vitamin B12 deficiency, replacement Chronic systolic CHF 35-40% secondary to dilated cardiomyopathy with history of V. tach and A. fib Paroxysmal A. fib on Coumadin. Rectus controlled History of seizure History of Coronary heart disease History of CVA with left hemiparesis Chronic left foot drop History of Sciatica nerve pain History of Pulmonary embolism on Coumadin Psoriasis Plan: This is a pleasant 50 years old female who presents with walking difficulty and right arm shakiness. Continue with aspirin and add Coumadin. Neurology consult follow-up recommendation.Continue with seizure medication. Check EEG Labs and medication were reviewed.. Continue same treatment. Continue with symptomatic treatment. Resume home medication. Monitor lytes and vitals. DVT and GI prophylaxis. Further recommendations depends on the clinical course of the patient DVT prophylaxis: Subcutaneous heparin, tell INR is therapeutic while on Coumadin GI Prophylaxis: Pepcid PT/OT: Pending Prognosis is guarded
[2020-10-21] MEDS: methIMAzole 5 MG TAB PO SCH ×3 (10:14→21:34)
[2020-10-21 10:22] LABS: INR 0.9 (<1.2)
--- NOTE | 2020-10-21 10:46 | ECHOF ---
Referral Reason:Thrombus MEASUREMENTS -------- HEIGHT: 165.1 cm WEIGHT: 49.9 kg BP: IVSd: 0.9 cm (0.6 - 1.1) LVIDd: 4.5 cm (3.9 - 5.3) LVPWd: 1.4 cm (0.6 - 1.1) IVSs: 1.0 cm LVIDs: 3.7 cm LVPWs: 1.6 cm LAESV Index (A-L): 36.11 ml/m Ao Diam: 3.0 cm (2.0 - 3.7) AV Cusp: 1.8 cm (1.5 - 2.6) MV EXCURSION: 20.824 mm (> 18.000) MV EF SLOPE: 95 mm/s (70 - 150) EPSS: 1.5 cm MV E Eusebio: 0.78 m/s MV DecT: 186 ms MV A Eusebio: 0.47 m/s MV E/A Ratio: 1.66 RAP: 5.00 mmHg RVSP: 25.31 mmHg FINDINGS -------- Paced rhythm. This was a technically good study. The left ventricular size is normal. Left ventricular wall thickness is normal. Overall left vent ricular systolic function is moderately impaired with, an EF between 35 - 40 %. Anterseptal Hypokin esis Septal Hypokinesis The right ventricle is normal in size. LA is moderately dilated 34-39 ml/m2 The right atrial size is normal. The aortic valve is trileaflet, and appears structurally normal. No aortic stenosis or regurgitation. Mild mitral regurgitation is present. Mild tricuspid regurgitation present. The right ventricular systolic pressure, as measured by Doppl er, is 25.31mmHg. There is no pulmonic regurgitation present. The aortic root size is normal. There is no pericardial effusion. CONCLUSIONS -------- 1. The left ventricular size is normal. 2. Left ventricular wall thickness is normal. 3. Overall left ventricular systolic function is moderately impaired with, an EF between 35 - 40 %. 4. Anterseptal Hypokinesis 5. Septal Hypokinesis 6. The right ventricle is normal in size. 7. LA is moderately dilated 34-39 ml/m2 8. The right atrial size is normal. 9. The aortic valve is trileaflet, and appears structurally normal. No aortic stenosis or regurgitati on. 10. Mild mitral regurgitation is present. 11. Mild tricuspid regurgitation present. 12. The right ventricular systolic pressure, as measured by Doppler, is 25.31mmHg. 13. There is no pericardial effusion. SUPERVISOR SCREEN MAKING: Sujatha Alvarenga RDCS
[2020-10-21] MEDS: CYANOCOBALAMIN 1,000 MCG/ML 1 ML VIAL IM SCH (13:11)
--- NOTE | 2020-10-21 14:00 | P.PN ---
Subjective Progress Note Date: 10/21/20 Patient was seen for a follow-up. Offers no new complaints. Patient states that she is doing better about 60%. Patient went to the bathroom, but was still feeling off balance but better than yesterday. Patient also walked with a physical therapist in the hallway and her balance was better but still off. She feels vertigo. Patient says that she had vertigo long time ago but has not happened since then. Patient also has hypercoagulable state with history of multiple strokes, as well as DVTs. Patient was supposed to be on warfarin. Patient states that she was taking Eliquis for the last 3 months, but only 3 days ago she stopped taking Eliquis and is back on warfarin. Her INR is subtherapeutic. I'm not sure patient is making this decision on her own, or if she is guided by some physician. She definitely is a risk for recurrent strokes. I discussed with her about her history of cerebral aneurysm, which she was not aware of. Objective - Vital Signs Vital signs: Vital Signs Temp 98.0 F 10/21/20 08:00 Pulse 74 10/21/20 12:00 Resp 18 10/21/20 12:00 BP 103/57 10/21/20 12:00 Pulse Ox 98 10/21/20 12:00 Intake & Output 10/20/20 10/21/20 10/21/20 18:59 06:59 18:59 Intake Total 0 125 Output Total 300 Balance -300 125 Weight 60 kg 50 kg Intake: Oral 0 125 Output: Emesis 300 Other: # Voids 1 - Exam Patient's mental status, speech and language functions are normal. Cranial nerves are significant for nystagmus, downbeat to the left and horizontal to the right. Visual shetty are full, face is symmetric. On muscle strength testing, patient has spastic left upper extremity but the strength is normal. Patient's strength in the lower extremity appears normal. Sensations are decreased in the left hand as compared to the right. Slightly decreased left leg as compared to the right. Patient's ataxia for [id number] and [id number] testing has resolved on the right, but has persistent ataxia on the left likely related to her previous stroke. She denies any worsening of baseline incoordination with the left side. Patient has Babinski on the left side. Telemetry monitoring so far showing sinus rhythm. - Labs CBC & Chem 7: 10/20/20 13:11 10/20/20 13:11 Labs: Abnormal Lab Results - Last 24 Hours (Table) 10/20/20 10/20/20 Range/Units 13:11 18:58 Sodium 136 L (137-145) mmol/L Creatinine 0.48 L (0.52-1.04) mg/dL Glucose 101 H (74-99) mg/dL TSH <0.015 L (0.465-4.680) mIU/L Free T4 2.37 H (0.78-2.19) ng/dL Assessment and Plan Assessment: * Acute onset of gait ataxia, frequent falls and imbalance. Patient takes relatively high-dose of multiple antiepileptic medications. Patient drank a big cup of White [place] vodka 24 hours prior, which probably triggered acute ataxia and gait imbalance. CVA is also in the differential, as patient has multiple strokes in the past, and she is on warfarin with subtherapeutic INR. * History of multiple strokes in the past. 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 Plan: * Patient's ataxia has improved. * Patient's seizure have been in remission for last 10 years. Patient is taking multiple antiepileptic medication at a fairly high dose. I recommended decreasing the dose of Tegretol slightly, as the levels are very borderline, possibly toxic. Patient does not want to make any changes in her seizure medications, as she states her seizures are very well controlled with current regimen. * Patient also is on warfarin, but her INR is subtherapeutic 0.9. Suggest bridging with Lovenox. Or consider switching to a newer agent. * B12 is low 267, we'll start replacement folate also low 5.1. Hemoglobin A1c 5.1. * Treatment of hyperthyroidism as per IM. * EEG has been ordered. * 2-D echo revealed normal left ventricle size. Left ventricle systolic function is moderately impaired with EF between 35-40%. Anterior septal Hypokinesis. Septal hypokinesis, left atrium is moderately dilated. * Patient has history of 4 mm cerebral aneurysm. Patient was not aware of the cerebral aneurysm. We will recheck CTA of head and neck to follow-up on the aneurysm.
[2020-10-21 17:24] LABS: Appearance,Urine Cloudy (Clear); Bacteria,Urine Occasional /hpf; Bilirubin,Urine Negative (Negative); Blood,Urine Small (Negative); Color,Urine Yellow; Glucose,Urine (UA) Negative (Negative); Ketones,Urine Negative (Negative); Leukocyte Esterase,Urine Moderate (Negative); Mucus,Urine Many /hpf; Nitrite,Urine Positive (Negative); Protein,Urine Trace (Negative); RBC,Urine 1 /hpf (0-5); Specific Gravity,Urine 1.034 (1.001-1.035); Squamous Epithelial Cell,Urine 2 /hpf (0-4); WBC,Urine 23 /hpf (0-5)
[2020-10-21] MEDS ORDERED: WARFARIN 2.5 MG TAB PO ONE (18:00)
[2020-10-21] MEDS ORDERED: LEVOFLOXACIN 500MG-D5W PMX 500 MG in DEXTROSE/WATER 1 100ML.BAG IVPB SCH (19:00)
--- NOTE | 2020-10-21 19:23 | CT ---
EXAM: CTA HEAD AND NECK INDICATION: Cerebral aneurysm follow-up. COMPARISON: CTA 02/22/2019. CT 10/20/2020. TECHNIQUE: CTA images of the head and neck was performed with multiplanar and MIP reformats generated and reviewed. Stenosis evaluation is based on [place] Symptomatic Carotid Endarterectomy Tria l (NASCET). 65 mL Isovue-370 intravenous contrast was administered. Automated does reduction techniqu e was used for this exam. FINDINGS: There is mild atherosclerosis of the great vessels and common carotid arteries. Otherwise normal thre e-vessel branching of the aorta. There is no evidence of high-grade stenosis, dissection or aneurysm seen in the bilateral common carotid, cervical internal carotid and vertebral arteries. There is grossly stable appearance and size of 4 mm saccular aneurysm of the right internal carotid a rtery supraclinoid branch just before the terminus. No evidence of high-grade stenosis, dissection or new aneurysm in the intracranial internal carotid arteries, anterior, middle and posterior cerebral arteries as well as in the imaged vertebral and basilar arteries. The communicating arteries are unre markable. Redemonstrated right MCA territory infarct. 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 No new abnormality, significant stenosis or occlusion of the CTA head/neck.
[2020-10-21] MEDS ORDERED: SODIUM CHLORIDE 0.9% 250 ML IV SCH (21:00)
[2020-10-21] MEDS: DONEPEZIL 10 MG TAB PO SCH (21:33)
[2020-10-22 08:29] LABS: Prothrombin Time 10.6 sec (9.0-12.0)
[2020-10-22 08:47] LABS: Levetiracetam (Keppra) 19.7 ug/mL (3.0-60.0)
--- NOTE | 2020-10-22 09:16 | P.PN ---
Subjective This is a pleasant 50 years old female. She is a patient of Dr. Auguste with past medical history of coronary artery disease, chronic heart failure, status post pacemaker,CVA with residual left upper extremity weakness and contracture, pulmonary embolism secondary to DVT in 1994 secondary to DVT and leg fracture on Coumadin. Also history of seizure disorder last seizure was 10 years ago, tonic-clonic proceeded with aura on multiple seizure medication including Keppra, Tegretol and Dilantin. Chronic left foot drop. She is following up with Dr. Berrios. Also she follows up with Dr. Roberts for sciatica pain Says that she came because she could not walk this morning, at baseline she wants by herself without the cane or walker however this morning she has difficulty walking without complaining of from weakness in her lower extremities. Also she had right arm shakiness that lasted for 5 minutes Also she's been complaining from some urinary urgency for about one week She denies chest pain or dyspnea or headache or weakness in the arm or legs. No numbness. No blurred vision. No abdominal pain or nausea vomiting or diarrhea. No fever. No back pain She smokes about 1 pack per week, she wants to quit but she declined nicotine patch when offered. She denies alcohol or illicit drugs Vitals are stable. Labs including CBC, INR, BMP and liver enzymes are unremarkable. Troponin is negative less than 0.012. Coronal virus not det ected. CT of the brain showing no hemorrhage, mass effect or midline shift. Carotid Doppler showing mild to moderate right ICA stenosis In the emergency room patient was started on aspirin 325 mg 10/21/2020 Patient was lying in bed today she felt mildly dizzy earlier but not currently. We are still waiting for neurologist to assess her for her working difficulty. No more shakiness in her extremities including no shakiness in the right upper extremity. Also today patient was moving her left upper extremity and arm but states that for many years when she moves with she has pain in her left s houlder, we will order left shoulder x-ray. Labs including CBC, BMP were unremarkable upon admission, hemoglobin A1c is normal to 5.1%. Liver enzymes not elevated. Troponin is negative. Lipid profi le is not elevated. She has low normal vitamin B12 at 267 and signs of hyperthyroidism with high thaddeus e T4 at 2.3 and low TSH less than 0.015. Patient also telling me that she follows up with Dr. Berrios, she could not remember why and that he advised her to take Coumadin but she kept taking liquids however she is willing to go back to Coumadin, check with operations officer team Dr. Berrios was seen the patient last May for routine visit for her dilated cardiomyopathy with systolic CHF and history of V. tach with atrial fibrillation and she was on Coumadin 2.5 mg daily. On admission her INR is subtherapeutic at 1.0, we'll start Coumadin 5 mg and directed onto 2.5 mg. Urine analysis and bladder scan are still pending. She was a little hypotensive this morning 95/50. She was concerned about that s tates that usually his blood pressure is 120s/80s. She is currently on Coreg 6.25 mg and lisinopril 10 mg daily which we don't allow her to 5 mg daily echocardiogram and EEG are pending 10/22/2020 Patient is awake and denying any chest pain or dyspnea or coughing. No dysuria or change in frequency or urgency. No abdominal pain. Patient states she is back to her baseline and she wants to leave the hospital and be discharged today. However explained to her she is not medically cleared yet and she agrees to stay yesterday she was [id number]. She received to 50 mL bolus of normal sa line. Her blood pressure this morning 111/68. We lowered the dose of lisinopril 10-5 mg daily. her right arm shakiness and transient ataxia are thought secondary to alcohol, UTI and low vitamin 12 and low falling per neurologist. Vitamin B12 and folate been replaced. patient is a known case of dilated cardiomyopathy and systolic dysfunction. Current ejection fraction is 35-40%. However there is some septal hypokinesia in the echocardiogram does why we consulting cardiology today, which is chronic as per my discussion with them.patient is restarted on warfarinPriya Kinast to 1.0 hyperthyroidism problem she was started on methimazole 5 mg 3 times a dayfor hyperthyroidism she has UTI and started on Levaquin. Urine cultures pending physical therapist Recommended home we are going on to check her blood pressure on both arms Review of Systems CONSTITUTIONAL: No fever, no malaise, no fatigue. HEENT: No recent visual problems or hearing problems. Denied any sore throat. CARDIOVASCULAR: No orthopnea, PND, no palpitations, no syncope. PULMONARY: No shortness of breath, no cough, no hemoptysis. GASTROINTESTINAL: No diarrhea, no nausea, no vomiting, no abdominal pain. Normoactive bowel sounds. NEUROLOGICAL: No headaches, no numbness. No back pain Active Medications Generic Name Dose Route Start Last Admin Trade Name Freq PRN Reason Stop Dose Admin Amiodarone HCl 200 mg 10/21/20 09:00 10/21/20 09:32 Amiodarone 200 Mg Tab PO 200 mg DAILY ADDIE Administration Atorvastatin Calcium 80 mg 10/21/20 21:00 10/21/20 21:32 Atorvastatin 80 Mg Tab PO 80 mg HS ADDIE Administration Carbamazepine 200 mg 10/20/20 22:00 10/21/20 21:33 Carbamazepine 200 Mg Tab PO 200 mg TID ADDIE Administration Carvedilol 6.25 mg 10/21/20 07:30 10/21/20 17:04 Carvedilol 6.25 Mg Tab PO 6.25 mg BID-W/MEALS ADDIE Administration Cyanocobalamin 1,000 mcg 10/23/20 09:00 Cyanocobalamin 500 Mcg Tab PO DAILY ADDIE Donepezil HCl 10 mg 10/20/20 21:00 10/21/20 21:33 Donepezil 10 Mg Tab PO 10 mg HS ADDIE Administration Famotidine 20 mg 10/20/20 21:00 10/21/20 21:33 Famotidine 20 Mg/2 Ml Vial IV 20 mg Q12HR ADDIE Administration Folic Acid 1 mg 10/22/20 09:00 Folic Acid 1 Mg Tab PO DAILY ADDIE Gabapentin 600 mg 10/20/20 22:00 10/21/20 21:34 Gabapentin 300 Mg Cap PO 600 mg TID ADDIE Administration Heparin Sodium (Porcine) 5,000 unit 10/20/20 21:00 10/21/20 21:33 Heparin Sodium,Porcine 5,000 Unit/Ml 1 Ml Vial SQ 5,000 unit Q12HR ADDIE Administration Levofloxacin 500 mg/ IV 100 mls @ 100 mls/hr 10/21/20 19:00 10/21/20 18:58 Solution IVPB 100 mls/hr Q24H ADDIE Administration Levetiracetam 1,500 mg 10/20/20 21:00 10/21/20 21:33 Levetiracetam 750 Mg Tab PO 1,500 mg BID ADDIE Administration Lisinopril 5 mg 10/22/20 09:00 Lisinopril 5 Mg Tab PO DAILY ADDIE Methimazole 5 mg 10/21/20 09:30 10/21/20 21:34 Methimazole 5 Mg Tab PO 5 mg TID ADDIE Administration Miscellaneous Information 0 each 10/21/20 09:29 Warfarin Per Pharmacy MISCELLANE DIRECTED PRN PER PROTOCOL Phenytoin Sodium 100 mg 10/20/20 22:00 10/21/20 21:34 Phenytoin Sodium Extended 100 Mg Cap PO 100 mg TID ADDIE Administration Objective - Vital Signs Vital signs: Vital Signs Temp 97.9 F 10/22/20 03:35 Pulse 65 10/22/20 03:35 Resp 19 10/22/20 03:35 BP 111/68 10/22/20 03:35 Pulse Ox 100 10/22/20 03:35 Intake & Output 10/21/20 10/22/20 10/22/20 18:59 06:59 18:59 Intake Total 697 240 Output Total 400 1200 Balance 297 -960 Weight 54.8 kg Intake: Oral 697 240 Output: Urine 400 1200 Other: # Voids 1 - Exam GENERAL: The patient is alert and oriented x3, not in any acute distress. Well developed, well nourished. HEENT: Pupils are round and equally reacting to light. EOMI. No scleral icterus. No conjunctival pallor. Normocephalic, atraumatic. No pharyngeal erythema. No thyromegaly. CARDIOVASCULAR: S1 and S2 present. No murmurs, rubs, or gallops. PULMONARY: Chest is clear to auscultation, no wheezing or crackles. ABDOMEN: Soft, nontender, nondistended, normoactive bowel sounds. No palpable organomegaly. MUSCULOSKELETAL: No joint swelling or deformity. EXTREMITIES: No cyanosis, clubbing, or pedal edema. -NEUROLOGICAL: Cranial nerves are grossly intact. Meningeal signs are absent. Strength 5/5 in right upper extremity and left upper extremity is not contracted today and she can move it, however she has been a shoulder with abduction in. Lower extremity strength is felt symmetrical with mild more no weakness. Sensation is intact. SKIN: No rashes. No petechiae - Labs CBC & Chem 7: 10/20/20 13:11 10/20/20 13:11 Labs: Abnormal Lab Results - Last 24 Hours (Table) 10/21/20 Range/Units 17:08 Urine Appearance Cloudy H (Clear) Urine Protein Trace H (Negative) Urine Blood Small H (Negative) Urine Nitrite Positive H (Negative) Ur Leukocyte Esterase Moderate H (Negative) Urine WBC 23 H (0-5) /hpf Urine Bacteria Occasional H (None) /hpf Urine Mucus Many H (None) /hpf Microbiology - Last 24 Hours (Table) 10/21/20 17:08 Urine Culture - Preliminary Urine,Voided Assessment and Plan Assessment: -difficulty walking since morning with five-minute shakiness in the upper ex tremity. Most likely ataxia secondary to alcohol use, UTI, low B12 and folate and hyperthyroidism, -Hyperthyroidism, start the patient on methimazole 5 mg 3 times a day -Vitamin B12 deficiency and folate deficiency, replacement -Acute UTI -Chronic systolic CHF 35-40% secondary to dilated cardiomyopathy with history of V. tach and A. fib. Discussed with cardiology is a chronic changes -Paroxysmal A. fib on Coumadin. rate is controlled -History of seizure -History of Coronary heart disease -History of CVA with left hemiparesis -Chronic left foot drop -History of Sciatica nerve pain -History of Pulmonary embolism on Coumadin -Psoriasis Plan: This is a pleasant 50 years old female who presents with walking difficulty and right arm shakiness. Continue with aspirin and add Coumadin. Neurology consult follow-up recommendation.Continue with seizure medication. Check EEG continue with Levaquin and follow-up urine culture. Resume Coumadin. Replace B12 and folate Labs and medication were reviewed.. Continue same treatment. Continue with symptomatic treatment. Resume home medication. Monitor lytes and vitals. DVT and GI prophylaxis. Further recommendations depends on the clinical course of the patient DVT prophylaxis: Subcutaneous heparin, tell INR is therapeutic while on Coumadin GI Prophylaxis: Pepcid PT/OT: home
[2020-10-22] MEDS: AMIODARONE 200 MG TAB PO SCH (09:36)
[2020-10-22] MEDS: PHENYTOIN SODIUM EXTENDED 100 MG CAP PO SCH ×3 (09:36→21:01)
[2020-10-22] MEDS: FOLIC ACID 1 MG TAB PO SCH (09:37)
[2020-10-22] MEDS: carvediloL 6.25 MG TAB PO SCH ×2 (09:37→16:59)
[2020-10-22] MEDS: CYANOCOBALAMIN 1,000 MCG/ML 1 ML VIAL IM SCH (09:37)
[2020-10-22] MEDS: FAMOTIDINE 20 MG/2 ML VIAL IV SCH (09:37)
[2020-10-22] MEDS: GABAPENTIN 300 MG CAP PO SCH ×3 (09:37→21:02)
[2020-10-22] MEDS: HEPARIN SODIUM,PORCINE 5,000 UNIT/ML 1 ML VIAL SQ SCH ×2 (09:37→21:02)
[2020-10-22] MEDS: carBAMazepine 200 MG TAB PO SCH ×3 (09:38→21:02)
[2020-10-22] MEDS: lisinopriL 5 MG TAB PO SCH (09:38)
[2020-10-22] MEDS: methIMAzole 5 MG TAB PO SCH ×3 (09:38→21:01)
--- NOTE | 2020-10-22 11:47 | EEG ---
ELECTROENCEPHALOGRAM REPORT DATE OF SERVICE: 10/21/2020 PREAMBLE: This is a 50-year-old female who has history of seizure disorder. The patient has history of stroke with residual left hemiparesis. This study is performed to evaluate for any epileptiform activity. EEG FINDINGS: This is a 21 channel routine EEG recording utilizing 10/20 international system with referential and bipolar montages. Background is seen relatively better in the left hemispheric region, with presence of mixed frequencies of 8 hertz alpha with some dysrhythmic theta and some delta activity. There is near continuous focal slowing in polymorphic delta range seen in the right frontotemporal region. No epileptiform activity was seen however. Photic driving response was not seen. Different stages of sleep were not seen. EKG channel showed no arrhythmia. IMPRESSION: This is an abnormal EEG due to: 1. Continuous focal slowing and dysrhythmic delta and theta activity involving the right frontotemporal head region. This is suggestive of focal cortical neuronal dysfunction and may suggest underlying structural abnormality. 2. A mild background slowing and disorganization suggestive of encephalopathy. No epileptiform activity was seen. MMODL / IJN: [id number] / [facility]
--- NOTE | 2020-10-22 11:50 | P.CRDCN ---
History of Present Illness History of present illness: HISTORY OF PRESENTING ILLNESS This is a pleasant 50-year-old female past medical history significant for dilated cardiomyopathy status post AICD, chronic systolic heart failure, pa roxysmal atrial fibrillation on Coumadin, ventricular tachycardia, hypertension and dyslipidemia. She follows in the office with Dr. Berrios. We have been asked to see in consultation for poor EF. And to the hospital with symptoms of bilateral lower extremity weakness and inability to walk. She states that she was unable to stand. She felt as though there was no communication between her brain in her legs. She has been seen in evaluation by neurology. At this time a CVA has been ruled out. Echocardiogram was obtained revealing impaired LV systolic function with ejection fraction 35-40% with anterior septal and septal LV wall motion hypokinesia noted. This is consistent with previous ec hocardiograms obtained in the office. There is no acute changes noted. She underwent a cardiac catheterization in 2008 revealing normal coronary arteries. Most recent stress test performed in the office 2019 is negative for reversible cardiac ischemia. DIAGNOSTICS EKG reveals sinus mechanism with incomplete left bundle-branch block. Telemetry tracings indicate mechanism with one episode of nonsustained wide complex ventricular tachycardia 7 beats. Laboratory reviewed, TSH less than 0.0 15, free T4 2 0.37, CBC unremarkable, sodium 136, potassium 3.7, creatinine 0.48, cardiac enzymes negative 1, LDL 75. Current cardiac medications include amiodarone 200 mg daily, atorvastatin 80 mg daily, Coreg 6.25 mg twice a day and lisinopril 10 mg daily. REVIEW OF SYSTEMS At the time of my exam: CONSTITUTIONAL: Denies fever or chills. CARDIOVASCULAR: Denies chest pain, shortness of breath, orthopnea, PND or palpitations. RESPIRATORY: Denies cough. GASTROINTESTINAL: Denies abdominal pain, diarrhea, constipation, nausea or vomiting. MUSCULOSKELETAL: Denies myalgias. NEUROLOGIC: Denies numbness, tingling, headacbe or weakness. ENDOCRINE: Denies fatigue, weight change, polydipsia or polyurina. GENITOURINARY: Denies burning, hematuria or urgency with micturation. HEMATOLOGIC: Denies history of anemia or bleeding. PHYSICAL EXAMINATION Blood pressure 111/68 heart rate 72 afebrile and maintaining oxygen saturation on room air. CONSTITUTIONAL: No apparent distress. HEENT: Head is normocephalic. Pupils are equal, round. Sclerae anicteric. Mucous membranes of the mouth are moist. No JVD. No carotid bruit. CHEST EXAMINATION: Lungs are clear to auscultation. No chest wall tenderness is noted on palpation or with deep breathing. HEART EXAMINATION: Regular rate and rhythm. S1, S2 heard. No murmurs, gallops or rub. ABDOMEN: Soft, nontender. Positive bowel sounds. EXTREMITIES: 2+ peripheral pulses, no lower extremity edema and no calf tenderness. NEUROLOGIC EXAMINATION: Patient is awake, alert and oriented x3. ASSESSMENT Ataxia Dilated cardiomyopathy, stable. s/p AICD Chronic systolic heart failure, clinically euvolemic Paroxysmal atrial fibrillation on long-term anticoagulation History of ventricular tachycardia maintained on amiodarone Hypertension Dyslipidemia PLAN Clinically stable from a cardiac perspective. Continue current medical regimen. Thank you kindly for this consultation. Nurse Practitioner note has been reviewed, I agree with a documented findings and plan of care. Patient was seen and examined. 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 History of Any Multi-Drug Resistant Organisms: None Reported Past Surgical History: Pacemaker Additional Past Surgical History / Comment(s): Bilateral eye surgery for glaucoma Past Anesthesia/Blood Transfusion Reactions: No Reported Reaction Type of Cardiac Device: Permanent Pacemaker Device Placement Date:: 2012 Past Psychological History: Anxiety, Depression Smoking Status: Current every day smoker Past Alcohol Use History: Occasional Past Drug Use History: None Reported - Past Family History Father Family Medical History: Coronary Artery Disease (CAD), Myocardial Infarction (TN) Additional Family Medical History / Comment(s): Father is 75 yrs old. He had a silent [place]. Mother Additional Family Medical History / Comment(s): Mother is at 32 yrs d/t cardiomyopathy Medications and Allergies Home Medications Medication Instructions Recorded Confirmed Type Atorvastatin Calcium [Lipitor] 80 mg PO DAILY 03/08/14 10/20/20 History Donepezil [Aricept] 10 mg PO HS 07/11/14 10/20/20 History levETIRAcetam [Keppra] 1,500 mg PO BID 03/22/17 10/20/20 History Gabapentin 600 mg PO TID 02/20/19 10/20/20 History Amiodarone [Cordarone] 200 mg PO DAILY 02/22/20 10/20/20 History Carvedilol [Coreg] 6.25 mg PO BID-W/MEALS 02/22/20 10/20/20 History Phenytoin Sodium Extended 100 mg PO TID 02/22/20 10/20/20 History [Dilantin] carBAMazepine [TEGretol] 200 mg PO TID 02/22/20 10/20/20 History lisinopriL [Zestril] 10 mg PO DAILY 10/20/20 10/20/20 History Allergies Allergy/AdvReac Type Severity Reaction Status Date / Time cephalexin monohydrate Allergy Rash/Hives Verified 10/20/20 13:56 [From Keflex] Penicillins Allergy Anaphylaxis Verified 10/20/20 13:56 Physical Exam Vitals: Vital Signs Temp Pulse Resp BP BP Pulse Ox 10/22/20 03:35 97.9 F 65 19 111/68 100 10/21/20 23:05 98.1 F 74 18 111/53 94 L 10/21/20 21:27 101/51 10/21/20 20:10 98.5 F 66 18 81/46 98 10/21/20 16:00 75 18 139/63 98 10/21/20 12:00 74 18 103/57 98 10/21/20 08:52 94 L Intake and Output 10/21/20 10/22/20 10/22/20 22:59 06:59 14:59 Intake Total 222 Output Total 400 1200 Balance -178 -1200 Intake: Oral 222 Output: Urine 400 1200 Other: # Voids 1 Weight 54.8 kg Results 10/20/20 13:11 10/20/20 13:11 Coagulation 10/21/20 Range/Units 09:50 PT 10.0 (9.0-12.0) sec Current Medications Generic Name Dose Route Start Last Admin Trade Name Freq PRN Reason Stop Dose Admin Amiodarone HCl 200 mg 10/21/20 09:00 10/21/20 09:32 Amiodarone 200 Mg Tab PO 200 mg DAILY ADDIE Administration Atorvastatin Calcium 80 mg 02/23/21 21:00 10/21/20 21:32 Atorvastatin 80 Mg Tab PO 80 mg HS ADDIE Administration Carbamazepine 200 mg 10/20/20 22:00 10/21/20 21:33 Carbamazepine 200 Mg Tab PO 200 mg TID ADDIE Administration Carvedilol 6.25 mg 10/21/20 07:30 10/21/20 17:04 Carvedilol 6.25 Mg Tab PO 6.25 mg BID-W/MEALS ADDIE Administration Cyanocobalamin 1,000 mcg 10/21/20 10:00 10/21/20 13:11 Cyanocobalamin 1,000 Mcg/Ml 1 Ml Vial IM 10/22/20 09:01 1,000 mcg DAILY ADDIE Administration Cyanocobalamin 1,000 mcg 10/23/20 09:00 Cyanocobalamin 500 Mcg Tab PO DAILY ADDIE Donepezil HCl 10 mg 10/20/20 21:00 10/21/20 21:33 Donepezil 10 Mg Tab PO 10 mg HS ADDIE Administration Famotidine 20 mg 10/20/20 21:00 10/21/20 21:33 Famotidine 20 Mg/2 Ml Vial IV 20 mg Q12HR ADDIE Administration Folic Acid 1 mg 10/22/20 09:00 Folic Acid 1 Mg Tab PO DAILY [facility] Gabapentin 600 mg 10/20/20 22:00 10/21/20 21:34 Gabapentin 300 Mg Cap PO 600 mg TID ADDIE Administration Heparin Sodium (Porcine) 5,000 unit 10/20/20 21:00 10/21/20 21:33 Heparin Sodium,Porcine 5,000 Unit/Ml 1 Ml Vial SQ 5,000 unit Q12HR ADDIE Administration Levofloxacin 500 mg/ IV 100 mls @ 100 mls/hr 10/21/20 19:00 10/21/20 18:58 Solution IVPB 100 mls/hr Q24H ADDIE Administration Levetiracetam 1,500 mg 10/20/20 21:00 10/21/20 21:33 Levetiracetam 750 Mg Tab PO 1,500 mg BID ADDIE Administration Lisinopril 5 mg 10/22/20 09:00 Lisinopril 5 Mg Tab PO DAILY [facility] Methimazole 5 mg 10/21/20 09:30 10/21/20 21:34 Methimazole 5 Mg Tab PO 5 mg TID ADDIE Administration Miscellaneous Information 0 each 10/21/20 09:29 Warfarin Per Pharmacy MISCELLANE DIRECTED PRN PER PROTOCOL Phenytoin Sodium 100 mg 10/20/20 22:00 10/21/20 21:34 Phenytoin Sodium Extended 100 Mg Cap PO 100 mg TID ADDIE Administration Intake and Output 10/21/20 10/22/20 10/22/20 22:59 06:59 14:59 Intake Total 222 Output Total 400 1200 Balance -178 -1200 Intake: Oral 222 Output: Urine 400 1200 Other: # Voids 1 Weight 54.8 kg 10/20/20 13:11 10/20/20 13:11
--- NOTE | 2020-10-22 17:29 | P.PN ---
Subjective Progress Note Date: 10/22/20 Patient states that she is doing much better. Her balance has improved. She is not falling overlying before. No new concerns. Telemetry monitoring showing sinus rhythm. Patient also has hypercoagulable state with history of multiple strokes, as well as DVTs. Patient was supposed to be on warfarin. Patient states that she was taking Eliquis for the last 3 months, but only 3 days ago she stopped taking Eliquis and is back on warfarin. Her INR is subtherapeutic. I'm not sure patient is making this decision on her own, or if she is guided by some physician. She definitely is a risk for recurrent strokes. Objective - Vital Signs Vital signs: Vital Signs Temp 96.3 F L 10/22/20 08:00 Pulse 67 10/22/20 12:00 Resp 20 10/22/20 14:00 BP 102/65 10/22/20 12:00 Pulse Ox 96 10/22/20 12:00 Intake & Output 10/21/20 10/22/20 10/22/20 18:59 06:59 18:59 Intake Total 697 480 Output Total 400 1200 Balance 297 -720 Weight 54.8 kg Intake: Oral 697 480 Output: Urine 400 1200 Other: # Voids 1 2 - Exam Patient's mental status, speech and language functions are normal. Patient has no ataxia for [id number] on the right. Still has ataxia on the left, but is from previous stroke. Telemetry monitoring so far showing sinus rhythm. - Labs CBC & Chem 7: 10/20/20 13:11 10/20/20 13:11 Labs: Abnormal Lab Results - Last 24 Hours (Table) 10/21/20 Range/Units 17:08 Urine Appearance Cloudy H (Clear) Urine Protein Trace H (Negative) Urine Blood Small H (Negative) Urine Nitrite Positive H (Negative) Ur Leukocyte Esterase Moderate H (Negative) Urine WBC 23 H (0-5) /hpf Urine Bacteria Occasional H (None) /hpf Urine Mucus Many H (None) /hpf Microbiology - Last 24 Hours (Table) 10/21/20 17:08 Urine Culture - Preliminary Urine,Voided Assessment and Plan Assessment: * Acute onset of gait ataxia, frequent falls and imbalance. Patient takes relatively high-dose of multiple antiepileptic medications. Patient drank a big cup of White [place] vodka 24 hours prior, which probably triggered acute ataxia and gait imbalance. CVA is also in the differential, as patient has multiple strokes in the past, and she is on warfarin with subtherapeutic INR. * History of multiple strokes in the past. 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 Plan: * Patient's ataxia has improved. * Repeat CTA of head and neck revealed grossly stable 4 mm saccular aneurysm on the right ICA supraclinoid branch, just before the terminus. No new abnorm ality, significant stenosis or occlusion on the CTA head/neck. Suggest patient follow-up with neuro intervention to discuss about cerebral aneurysm, which appears to be stable. * Patient's seizure have been in remission for last 10 years. Patient is taking multiple antiepileptic medication at a fairly high dose. I recommended decreasing the dose of Tegretol slightly, as the levels are very borderline, possibly toxic. Patient does not want to make any changes in her seizure medications, as she states her seizures are very well controlled with current regimen. Her Dilantin level is 18.1, free Dilantin 1.2, Tegretol 12.0, which is very upper limit of therapeutic range, Keppra 19.7 (3-60). * Patient also is on warfarin, but her INR is subtherapeutic 0.9. Suggest bridging with Lovenox. Or consider switching to a newer agent. * B12 is low 267, we'll start replacement folate also low 5.1. Hemoglobin A1c 5.1. * Treatment of hyperthyroidism as per IM. * EEG revealed continuous focal slowing and dysrhythmic delta and theta activity involving the right frontotemporal head region. This is suggestive of focal cortical neuronal dysfunction and may suggest underlying structural abnormality. A mild background slowing and disorganization suggestive of encephalopathy. No epileptiform activity was seen. * 2-D echo revealed normal left ventricle size. Left ventricle systolic function is moderately impaired with EF between 35-40%. Anterior septal Hypokinesis. Septal hypokinesis, left atrium is moderately dilated.
[2020-10-22] MEDS ORDERED: WARFARIN 5 MG TAB PO ONE (18:00)
[2020-10-22] MEDS: FAMOTIDINE 20 MG TAB PO SCH (21:01)
[2020-10-22] MEDS: LEVOFLOXACIN 500 MG TAB PO SCH (21:01)
[2020-10-22] MEDS: ATORVASTATIN 80 MG TAB PO SCH (21:01)
[2020-10-22] MEDS: DONEPEZIL 10 MG TAB PO SCH (21:02)
[2020-10-23] MEDS: carvediloL 6.25 MG TAB PO SCH ×2 (06:22→17:42)
[2020-10-23 07:42] LABS: Basophils % (A) 0 %; Eosinophils # (A) 0.1 k/uL (0-0.7); Eosinophils % (A) 2 %; HGB 12.1 gm/dL (11.4-16.0); Lymphocytes # (A) 1.4 k/uL (1.0-4.8); Lymphocytes % (A) 41 %; MCH 32.1 pg (25.0-35.0); MCHC 32.7 g/dL (31.0-37.0); Mean Platelet Volume 7.5; Monocytes # (A) 0.2 k/uL (0-1.0); Monocytes % (A) 7 %; Neutrophils # (A) 1.6 k/uL (1.3-7.7); Neutrophils % (A) 49 %; Platelet Count 170 k/uL (150-450); RBC 3.77 m/uL (3.80-5.40); RDW 13.3 % (11.5-15.5); WBC 3.4 k/uL (3.8-10.6)
[2020-10-23 07:49] LABS: INR 1.1 (<1.2); Prothrombin Time 11.7 sec (9.0-12.0)
[2020-10-23 07:55] LABS: African American GFR (CKD) >90 (>60 ml/min/1.73 sqM); Anion Gap 4 mmol/L; Blood Urea Nitrogen 14 mg/dL (7-17); Calcium 8.2 mg/dL (8.4-10.2); Carbon Dioxide 30 mmol/L (22-30); Chloride 103 mmol/L (98-107); Glucose 93 mg/dL (74-99); Non-African American GFR(CKD) >90 (>60 ml/min/1.73 sqM); Potassium 4.7 mmol/L (3.5-5.1); Sodium 137 mmol/L (137-145)
[2020-10-23] MEDS: lisinopriL 5 MG TAB PO SCH (09:23)
[2020-10-23] MEDS: AMIODARONE 200 MG TAB PO SCH (09:23)
[2020-10-23] MEDS: methIMAzole 5 MG TAB PO SCH ×3 (09:23→21:12)
[2020-10-23] MEDS: CYANOCOBALAMIN 500 MCG TAB PO SCH (09:23)
[2020-10-23] MEDS: PHENYTOIN SODIUM EXTENDED 100 MG CAP PO SCH ×3 (09:23→21:13)
[2020-10-23] MEDS: FOLIC ACID 1 MG TAB PO SCH (09:23)
[2020-10-23] MEDS: carBAMazepine 200 MG TAB PO SCH ×3 (09:23→21:13)
[2020-10-23] MEDS: GABAPENTIN 300 MG CAP PO SCH ×3 (09:23→21:13)
[2020-10-23] MEDS: FAMOTIDINE 20 MG TAB PO SCH ×2 (09:23→21:13)
[2020-10-23] MEDS: HEPARIN SODIUM,PORCINE 5,000 UNIT/ML 1 ML VIAL SQ SCH (09:24)
--- NOTE | 2020-10-23 13:33 | P.PN ---
Subjective This is a pleasant 50 years old female. She is a patient of Dr. Auguste with past medical history of coronary artery disease, chronic heart failure, status post pacemaker,CVA with residual left upper extremity weakness and contracture, pulmonary embolism secondary to DVT in 1994 secondary to DVT and leg fracture on Coumadin. Also history of seizure disorder last seizure was 10 years ago, tonic-clonic proceeded with aura on multiple seizure medication including Keppra, Tegretol and Dilantin. Chronic left foot drop. She is following up with Dr. Berrios. Also she follows up with Dr. Roberts for sciatica pain Says that she came because she could not walk this morning, at baseline she wants by herself without the cane or walker however this morning she has difficulty walking without complaining of from weakness in her lower extremities. Also she had right arm shakiness that lasted for 5 minutes Also she's been complaining from some urinary urgency for about one week She denies chest pain or dyspnea or headache or weakness in the arm or legs. No numbness. No blurred vision. No abdominal pain or nausea vomiting or diarrhea. No fever. No back pain She smokes about 1 pack per week, she wants to quit but she declined nicotine patch when offered. She denies alcohol or illicit drugs Vitals are stable. Labs including CBC, INR, BMP and liver enzymes are unremarkable. Troponin is negative less than 0.012. Coronal virus not det ected. CT of the brain showing no hemorrhage, mass effect or midline shift. Carotid Doppler showing mild to moderate right ICA stenosis In the emergency room patient was started on aspirin 325 mg 10/21/2020 Patient was lying in bed today she felt mildly dizzy earlier but not currently. We are still waiting for neurologist to assess her for her working difficulty. No more shakiness in her extremities including no shakiness in the right upper extremity. Also today patient was moving her left upper extremity and arm but states that for many years when she moves with she has pain in her left s houlder, we will order left shoulder x-ray. Labs including CBC, BMP were unremarkable upon admission, hemoglobin A1c is normal to 5.1%. Liver enzymes not elevated. Troponin is negative. Lipid profi le is not elevated. She has low normal vitamin B12 at 267 and signs of hyperthyroidism with high thaddeus e T4 at 2.3 and low TSH less than 0.015. Patient also telling me that she follows up with Dr. Berrios, she could not remember why and that he advised her to take Coumadin but she kept taking liquids however she is willing to go back to Coumadin, check with multimedia producer team Dr. Berrios was seen the patient last May for routine visit for her dilated cardiomyopathy with systolic CHF and history of V. tach with atrial fibrillation and she was on Coumadin 2.5 mg daily. On admission her INR is subtherapeutic at 1.0, we'll start Coumadin 5 mg and directed onto 2.5 mg. Urine analysis and bladder scan are still pending. She was a little hypotensive this morning 95/50. She was concerned about that s tates that usually his blood pressure is 120s/80s. She is currently on Coreg 6.25 mg and lisinopril 10 mg daily which we don't allow her to 5 mg daily echocardiogram and EEG are pending 10/22/2020 Patient is awake and denying any chest pain or dyspnea or coughing. No dysuria or change in frequency or urgency. No abdominal pain. Patient states she is back to her baseline and she wants to leave the hospital and be discharged today. However explained to her she is not medically cleared yet and she agrees to stay yesterday she was [id number]. She received to 50 mL bolus of normal sa line. Her blood pressure this morning 111/68. We lowered the dose of lisinopril 10-5 mg daily. her right arm shakiness and transient ataxia are thought secondary to alcohol, UTI and low vitamin 12 and low falling per neurologist. Vitamin B12 and folate been replaced. patient is a known case of dilated cardiomyopathy and systolic dysfunction. Current ejection fraction is 35-40%. However there is some septal hypokinesia in the echocardiogram does why we consulting cardiology today, which is chronic as per my discussion with them.patient is restarted on warfarin . INR 1.0 hyperthyroidism problem she was started on methimazole 5 mg 3 times a dayfor hyperthyroidism she has UTI and started on Levaquin. Urine cultures pending physical therapist Recommended home we are going on to check her blood pressure on both arms 10/23/2020 Patient is awake and alert, she is walking in her room with no difficulty. No chest pain or dyspnea or headache. No more shakiness or ataxia while walking. She is hemodynamically stable. Labs reviewed the looks stable. Urine culture is growing gram-negative bacilli and she is currently on Levaquin. We may consider switching it to cephalosporin since her ALLERGY to cephalosporin is only hives but also she is ALLERGIC to penicillin with anaphylaxis which make us careful even with the cephalosporin as there is gross ALLERGY about 10%. So we'll keep patient on Levaquin and follow-up the urine culture tomorrow. . There is high-risk interaction between Levaquin and Coumadin. Also we'll start her for Lovenox for bridging upon recommendation by neur ologist, discussed the case with the pharmacist and based on her weight restarting her on Lovenox 60 mg twice daily. Also I called her multimedia producer office, she follows up with Dr. Berrios. She can walk-in to check her INR every day 8:30-12:30 in the morning. Appointment made for her with Dr. Berrios on 10/30 Patient herself feels much better and she wants to go home today if she is medically stable. However as a second urine culture still pending. Neurologist recommended outpatient follow-up with her neurologist Dr. Roberts, patient is aware about her right internal carotid artery aneurysm I discussed the case with the staff, pharmacist twice and her multimedia producer office EEG showing possible structural abnormality on the right frontal region, I discussed the case with the neurologist, no need for further workup as this could be due from her old stroke Review of systems CONSTITUTIONAL: No fever, no malaise, no fatigue. HEENT: No recent visual problems or hearing problems. Denied any sore throat. CARDIOVASCULAR: No orthopnea, PND, no palpitations, no syncope. PULMONARY: No shortness of breath, no cough, no hemoptysis. GASTROINTESTINAL: No diarrhea, no nausea, no vomiting, no abdominal pain. Normoactive bowel sounds. Active Medications Generic Name Dose Route Start Last Admin Trade Name Freq PRN Reason Stop Dose Admin Amiodarone HCl 200 mg 10/21/20 09:00 10/23/20 09:23 Amiodarone 200 Mg Tab PO 200 mg DAILY ADDIE Administration Atorvastatin Calcium 80 mg 10/21/20 21:00 10/22/20 21:01 Atorvastatin 80 Mg Tab PO 80 mg HS ADDIE Administration Carbamazepine 200 mg 10/20/20 22:00 10/23/20 09:23 Carbamazepine 200 Mg Tab PO 200 mg TID ADDIE Administration Carvedilol 6.25 mg 10/21/20 07:30 10/23/20 06:22 Carvedilol 6.25 Mg Tab PO 6.25 mg BID-W/MEALS ADDIE Administration Cyanocobalamin 1,000 mcg 10/23/20 09:00 10/23/20 09:23 Cyanocobalamin 500 Mcg Tab PO 1,000 mcg DAILY ADDIE Administration Donepezil HCl 10 mg 10/20/20 21:00 10/22/20 21:02 Donepezil 10 Mg Tab PO 10 mg HS [facility] Administration Enoxaparin Sodium 60 mg 10/23/20 21:00 Enoxaparin 60 Mg/0.6 Ml Syringe SQ Q12HR [facility] Famotidine 20 mg 10/22/20 21:00 10/23/20 09:23 Famotidine 20 Mg Tab PO 20 mg BID ADDIE Administration Folic Acid 1 mg 10/22/20 09:00 10/23/20 09:23 Folic Acid 1 Mg Tab PO 1 mg DAILY ADDIE Administration Gabapentin 600 mg 10/20/20 22:00 10/23/20 09:23 Gabapentin 300 Mg Cap PO 600 mg TID ADDIE Administration Levetiracetam 1,500 mg 10/20/20 21:00 10/23/20 09:23 Levetiracetam 750 Mg Tab PO 1,500 mg BID ADDIE Administration Levofloxacin 500 mg 10/22/20 19:00 10/22/20 21:01 Levofloxacin 500 Mg Tab PO 500 mg Q24H ADDIE Administration Lisinopril 5 mg 10/22/20 09:00 10/23/20 09:23 Lisinopril 5 Mg Tab PO 5 mg DAILY ADDIE Administration Methimazole 5 mg 10/21/20 09:30 10/23/20 09:23 Methimazole 5 Mg Tab PO 5 mg TID ADDIE Administration Miscellaneous Information 0 each 10/21/20 09:29 Warfarin Per Pharmacy MISCELLANE DIRECTED PRN PER PROTOCOL Phenytoin Sodium 100 mg 10/20/20 22:00 10/23/20 09:23 Phenytoin Sodium Extended 100 Mg Cap PO 100 mg TID ADDIE Administration Warfarin Sodium 5 mg 10/23/20 18:00 Warfarin 5 Mg Tab PO 10/23/20 18:01 ONCE@1800 ONE Objective - Vital Signs Vital signs: Vital Signs Temp 98.0 F 10/23/20 08:00 Pulse 69 10/23/20 08:00 Resp 18 10/23/20 08:00 BP 96/55 10/23/20 08:00 Pulse Ox 94 L 10/23/20 08:00 Intake & Output 10/22/20 10/23/20 10/23/20 18:59 06:59 18:59 Intake Total 480 240 Output Total 1950 Balance -1470 240 Weight 57 kg Intake: Oral 480 240 Output: Urine 1950 Other: # Voids 2 1 - Exam GENERAL: The patient is alert and oriented x3, not in any acute distress. Well developed, well nourished. HEENT: Pupils are round and equally reacting to light. EOMI. No scleral icterus. No conjunctival pallor. Normocephalic, atraumatic. No pharyngeal erythema. No thyromegaly. CARDIOVASCULAR: S1 and S2 present. No murmurs, rubs, or gallops. PULMONARY: Chest is clear to auscultation, no wheezing or crackles. ABDOMEN: Soft, nontender, nondistended, normoactive bowel sounds. No palpable organomegaly. MUSCULOSKELETAL: No joint swelling or deformity. EXTREMITIES: No cyanosis, clubbing, or pedal edema. -NEUROLOGICAL: Cranial nerves are grossly intact. Meningeal signs are absent. Strength 5/5 in right upper extremity and left upper extremity is not contracted today and she can move it, however she has been a shoulder with abduction in. Lower extremity strength is felt symmetrical with mild more no weakness. Sensation is intact. SKIN: No rashes. No petechiae - Labs CBC & Chem 7: 10/23/20 07:22 10/23/20 07:22 Labs: Abnormal Lab Results - Last 24 Hours (Table) 10/23/20 10/23/20 Range/Units 07:22 07:22 WBC 3.4 L (3.8-10.6) k/uL RBC 3.77 L (3.80-5.40) m/uL Calcium 8.2 L (8.4-10.2) mg/dL Microbiology - Last 24 Hours (Table) 10/21/20 17:08 Urine Culture - Preliminary Urine,Voided Gram Neg Bacilli Assessment and Plan Assessment: -difficulty walking since morning with five-minute shakiness in the upper extremity. Most likely ataxia secondary to alcohol use, UTI, low B12 and folate and hyperthyroidism, -Hyperthyroidism, start the patient on methimazole 5 mg 3 times a day -Vitamin B12 deficiency and folate deficiency, replacement -Acute UTI -Chronic systolic CHF 35-40% secondary to dilated cardiomyopathy with history of V. tach and A. fib. Discussed with cardiology is a chronic changes -Paroxysmal A. fib on Coumadin. rate is controlled -History of seizure -History of Coronary heart disease -History of CVA with left hemiparesis -Chronic left foot drop -History of Sciatica nerve pain -History of Pulmonary embolism on Coumadin -Psoriasis Plan: This is a pleasant 50 years old female who presents with walking difficulty and right arm shakiness. Continue with aspirin and add Coumadin. Neurology consult follow-up recommendation.Continue with seizure medication. continue with Levaquin and follow-up urine culture. Resume Coumadin. Replace B12 and folate Start Lovenox for bridging per neurology recommendation to the patient eject herself. Patient states she took subcu Lovenox before when she was Labs and medication were reviewed.. Continue same treatment. Continue with symptomatic treatment. Resume home medication. Monitor lytes and vitals. DVT and GI prophylaxis. Further recommendations depends on the clinical course of the patient DVT prophylaxis: Subcutaneous heparin, tell INR is therapeutic while on Coumadin GI Prophylaxis: Pepcid PT/OT: home
[2020-10-23 15:57] VITALS: RESP 18
[2020-10-23] MEDS ORDERED: WARFARIN 5 MG TAB PO ONE (18:00)
[2020-10-23] MEDS ORDERED: SODIUM CHLORIDE 0.9% 500 ML 250 ML IV ONE (18:25)
[2020-10-23] MEDS ORDERED: ENOXAPARIN 60 MG/0.6 ML SYRINGE SQ SCH (21:00)
[2020-10-23] MEDS: DONEPEZIL 10 MG TAB PO SCH (21:13)
[2020-10-23] MEDS: ATORVASTATIN 80 MG TAB PO SCH (21:13)
[2020-10-23] MEDS: LEVOFLOXACIN 500 MG TAB PO SCH (21:16)
[2020-10-23] MEDS: SODIUM CHLORIDE 0.9% 250 ML IV SCH (23:30)
[2020-10-24] MEDS: SODIUM CHLORIDE 0.9% 250 ML IV SCH ×10 (03:55→09:27)
[2020-10-24 05:16] VITALS: PULSE 72
[2020-10-24 05:37] LABS: Appearance,Urine Clear (Clear); Bilirubin,Urine Negative (Negative); Blood,Urine Negative (Negative); Color,Urine Yellow; Glucose,Urine (UA) Negative (Negative); Ketones,Urine Negative (Negative); Leukocyte Esterase,Urine Small (Negative); Mucus,Urine Rare /hpf; Nitrite,Urine Negative (Negative); Protein,Urine Trace (Negative); RBC,Urine 3 /hpf (0-5); Specific Gravity,Urine 1.027 (1.001-1.035); Squamous Epithelial Cell,Urine 6 /hpf (0-4); WBC,Urine 13 /hpf (0-5)
[2020-10-24 07:27] LABS: HCT 36.3 % (34.0-46.0); HGB 11.9 gm/dL (11.4-16.0); MCH 32.6 pg (25.0-35.0); MCHC 32.8 g/dL (31.0-37.0); MCV 99.5 fL (80.0-100.0); Mean Platelet Volume 7.8; Platelet Count 156 k/uL (150-450); RBC 3.65 m/uL (3.80-5.40); RDW 13.3 % (11.5-15.5); WBC 3.6 k/uL (3.8-10.6)
[2020-10-24] MEDS ORDERED: carvediloL 3.125 MG TAB PO SCH (07:30)
[2020-10-24 07:41] LABS: Prothrombin Time 19.4 sec (9.0-12.0)
[2020-10-24] MEDS: PHENYTOIN SODIUM EXTENDED 100 MG CAP PO SCH (09:18)
[2020-10-24] MEDS: FAMOTIDINE 20 MG TAB PO SCH (09:18)
[2020-10-24] MEDS: carBAMazepine 200 MG TAB PO SCH (09:18)
[2020-10-24] MEDS: GABAPENTIN 300 MG CAP PO SCH (09:18)
[2020-10-24] MEDS: CYANOCOBALAMIN 500 MCG TAB PO SCH (09:18)
[2020-10-24] MEDS: AMIODARONE 200 MG TAB PO SCH (09:18)
[2020-10-24] MEDS: FOLIC ACID 1 MG TAB PO SCH (09:18)
[2020-10-24] MEDS: methIMAzole 5 MG TAB PO SCH (09:19)
[2020-10-24] MEDS ORDERED: DOXYCYCLINE 100 MG CAP PO SCH (09:30)
[2020-10-24 11:14] VITALS: TEMP 97
--- NOTE | 2020-10-24 11:15 | P.PN ---
Subjective Progress Note Date: 10/23/20 Patient states that she is doing much better. She feels back to baseline. Her balance has improved. She is not falling overlying before. No new concerns. Telemetry monitoring showing sinus rhythm, with occasional paced rhythm. Patient has developed some diarrhea, therefore will be observed overnight. Patient also has hypercoagulable state with history of multiple strokes, as well as DVTs. Patient was supposed to be on warfarin. Patient states that she was taking Eliquis for the last 3 months, but only 3 days ago she stopped taking Eliquis and is back on warfarin. Her INR is subtherapeutic. I'm not sure patient is making this decision on her own, or if she is guided by some physician. She definitely is a risk for recurrent strokes. Objective - Vital Signs Vital signs: Vital Signs Temp 98.0 F 10/23/20 08:00 Pulse 68 10/23/20 15:57 Resp 18 10/23/20 15:57 BP 96/61 10/23/20 15:57 Pulse Ox 96 10/23/20 15:57 Intake & Output 10/22/20 10/23/20 10/23/20 18:59 06:59 18:59 Intake Total 480 476 Output Total 1950 Balance -1470 476 Weight 57 kg Intake: Oral 480 476 Output: Urine 1950 Other: # Voids 2 1 2 - Exam Patient's mental status, speech and language functions are normal. Patient has no ataxia for [id number] on the right. Still has ataxia on the left, but is from previous stroke. Patient was able to walk with baseline hemiparetic gait, feels back to normal. - Labs CBC & Chem 7: 10/24/20 07:04 10/23/20 07:22 Labs: Abnormal Lab Results - Last 24 Hours (Table) 10/23/20 10/23/20 Range/Units 07:22 07:22 WBC 3.4 L (3.8-10.6) k/uL RBC 3.77 L (3.80-5.40) m/uL Calcium 8.2 L (8.4-10.2) mg/dL Microbiology - Last 24 Hours (Table) 10/21/20 17:08 Urine Culture - Preliminary Urine,Voided Gram Neg Bacilli Assessment and Plan Assessment: * Acute onset of gait ataxia, frequent falls and imbalance. Patient takes relatively high-dose of multiple antiepileptic medications. Patient drank a big cup of White [place] vodka 24 hours prior, which probably triggered acute ataxia and gait imbalance. CVA is also in the differential, as patient has multiple strokes in the past, and she is on warfarin with subtherapeutic INR. * History of multiple strokes in the past. 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 Plan: * Patient's ataxia has resolved. She feels back to baseline. Neurologically clear for discharge. * Repeat CTA of head and neck revealed grossly stable 4 mm saccular aneurysm on the right ICA supraclinoid branch, just before the terminus. No new abnormality, significant stenosis or occlusion on the CTA head/neck. Suggest patient follow-up with neuro intervention to discuss about cerebral aneurysm, which appears to be stable. * Patient's seizure have been in remission for last 10 years. Patient is taking multiple antiepileptic medication at a fairly high dose. I recommended decreasing the dose of Tegretol slightly, as the levels are very borderline, possibly toxic. Patient does not want to make any changes in her seizure medications, as she states her seizures are very well controlled with current regimen. Her Dilantin level is 18.1, free Dilantin 1.2, Tegretol 12.0, which is very upper limit of therapeutic range, Keppra 19.7 (3-60). * Patient also is on warfarin, but her INR is subtherapeutic 1.1. Suggest bridging with Lovenox. * B12 is low 267, we'll start replacement folate also low 5.1. Hemoglobin A1c 5.1. * Treatment of hyperthyroidism as per IM. * EEG revealed continuous focal slowing and dysrhythmic delta and theta activity involving the right frontotemporal head region. This is suggestive of focal cortical neuronal dysfunction and may suggest underlying structural abnormality. A mild background slowing and disorganization suggestive of encephalopathy. No epileptiform activity was seen. * 2-D echo revealed normal left ventricle size. Left ventricle systolic function is moderately impaired with EF between 35-40%. Anterior septal Hypokinesis. Septal hypokinesis, left atrium is moderately dilated.
[2020-10-24] MEDS ORDERED: SODIUM CHLORIDE 0.9% 500 ML 250 ML IV ONE (11:24)
[2020-10-24 13:42] VITALS: BP 108/64
[2020-10-24] MEDS ORDERED: WARFARIN 5 MG TAB PO ONE (18:00)
--- NOTE | 2020-10-24 20:42 | P.PN ---
Subjective Progress Note Date: 10/24/20 (Late entry). Patient was seen for a follow-up at around 11 AM. Patient states she is back to baseline. Offers no complaints. No further seizures. No headaches. Patient states that she is fully ready to go home. Telemetry monitoring showing sinus rhythm with some occasional paced rhythm. Patient also has hypercoagulable state with history of multiple strokes, as well as DVTs. Patient was supposed to be on warfarin. Patient states that she was taking Eliquis for the last 3 months, but only 3 days ago she stopped taking Eliquis and is back on warfarin. Her INR is subtherapeutic. I'm not sure patient is making this decision on her own, or if she is guided by some physician. She definitely is a risk for recurrent strokes. Objective - Vital Signs Vital signs: Vital Signs Temp 97 F L 10/24/20 11:13 Pulse 72 10/24/20 11:13 Resp 18 10/24/20 11:13 BP 108/64 10/24/20 13:39 Pulse Ox 97 10/24/20 11:13 Intake & Output 10/24/20 10/24/20 10/25/20 06:59 18:59 06:59 Intake Total 500 240 Balance 500 240 Weight 56.7 kg Intake: Intake, IV Titration 500 Amount Sodium Chloride 0.9% 250 250 ml @ 999 mls/hr IV .Q16M [facility] Rx#:[id number] Sodium Chloride 0.9% 500 250 ml 250 ml @ 999 mls/hr IV .Q16M [facility] Rx#:[id number] Oral 240 - Exam Patient's mental status, speech and language functions are normal. Patient has no ataxia for [id number] on the right. Still has ataxia on the left, but is from previous stroke. Patient was able to walk with baseline hemiparetic gait, feels back to normal. - Labs CBC & Chem 7: 10/24/20 07:04 10/23/20 07:22 Labs: Abnormal Lab Results - Last 24 Hours (Table) 10/24/20 10/24/20 10/24/20 Range/Units 05:00 07:04 07:04 WBC 3.6 L (3.8-10.6) k/uL RBC 3.65 L (3.80-5.40) m/uL PT 19.4 H (9.0-12.0) sec INR 2.0 H (<1.2) Urine Protein Trace H (Negative) Ur Leukocyte Esterase Small H (Negative) Urine WBC 13 H (0-5) /hpf Ur Squamous Epith Cells 6 H (0-4) /hpf Urine Mucus Rare H (None) /hpf Microbiology - Last 24 Hours (Table) 10/21/20 17:08 Urine Culture - Final Urine,Voided Escherichia coli Assessment and Plan Assessment: * Acute onset of gait ataxia, frequent falls and imbalance. Patient takes relatively high-dose of multiple antiepileptic medications. Patient drank a big cup of White Russ[place] vodka 24 hours prior, which probably triggered acute ataxia and gait imbalance. CVA is also in the differential, as patient has multiple strokes in the past, and she is on warfarin with subtherapeutic INR. * History of multiple strokes in the past. 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 Plan: * Patient's ataxia has resolved. She feels back to baseline. Neurologically clear for discharge. * Repeat CTA of head and neck revealed grossly stable 4 mm saccular aneurysm on the right ICA supraclinoid branch, just before the terminus. No new abnormality, significant stenosis or occlusion on the CTA head/neck. Suggest patient follow-up with neuro intervention to discuss about cerebral aneurysm, which appears to be stable. * Patient's seizure have been in remission for last 10 years. Patient is taking multiple antiepileptic medication at a fairly high dose. I recommended decreasing the dose of Tegretol slightly, as the levels are very borderline, possibly toxic. Patient does not want to make any changes in her seizure medications, as she states her seizures are very well controlled with current regimen. Her Dilantin level is 18.1, free Dilantin 1.2, Tegretol 12.0, which is very upper limit of therapeutic range, Keppra 19.7 (3-60). * Patient also is on warfarin, INR is not therapeutic 2.0. * B12 is low 267, we'll start replacement folate also low 5.1. Hemoglobin A1c 5.1. * Treatment of hyperthyroidism as per IM. * EEG revealed continuous focal slowing and dysrhythmic delta and theta activity involving the right frontotemporal head region. This is suggestive of focal cortical neuronal dysfunction and may suggest underlying structural abnormality. A mild background slowing and disorganization suggestive of encephalopathy. No epileptiform activity was seen. * 2-D echo revealed normal left ventricle size. Left ventricle systolic function is moderately impaired with EF between 35-40%. Anterior septal Hypokinesis. Septal hypokinesis, left atrium is moderately dilated. * Discussed with primary physician.
--- NOTE | 2020-10-25 00:50 | P.DS ---
Providers Date of admission: 10/20/20 15:17 Attending physician: Miller Porter MD Consults: 10/20/20 15:17 Consult Physician Routine Consulting Provider: Kevon Chua Consult Reason/Comments: Limb ataxia, concern for CVA Do you want consulting provider notified?: Yes 10/21/20 20:11 Consult Physician Routine Consulting Provider: Jose Alfredo Najera Consult Reason/Comments: low EF AND SEPTAL HYPOKINESIA Do you want consulting provider notified?: Yes, Notify in am Primary care physician: Garth Auguste Hospital Course: Diagnoses: -Transient ataxia, multifactorial secondary to alcohol use, UTI, low B12 and folate and hyperthyroidism, -Hyperthyroidism, start the patient on methimazole 5 mg 3 times a day. Follow- up as an outpatient to recheck her test, referred to clinical outcomes manager -Vitamin B12 deficiency and folate deficiency, replaced -Acute UTI. Improved. Discharge a short course of oral antibiotic -Chronic systolic CHF 35-40% secondary to dilated cardiomyopathy with history of V. tach and A. fib. Also she has wall hypokinesia, Discussed with cardiology who cleared her for discharge -Paroxysmal A. fib on Coumadin. rate is controlled -4 mm saccular aneurysm involving supraclinoid right ICA prior to the carotid terminus, patient aware and she was instructed to follow up with her neurologist Dr. Roberts regarding this and she agrees -History of seizure -History of Coronary heart disease -History of CVA with left hemiparesis -Chronic left foot drop -History of Sciatica nerve pain -History of Pulmonary embolism on Coumadin -Psoriasis Hospital course This is a pleasant 50 years old female. She is a patient of Dr. Auguste with past medical history of coronary artery disease, chronic heart failure, status post pacemaker,CVA with residual left upper extremity weakness and contracture, pulmonary embolism secondary to DVT in 1994 secondary to DVT and leg fracture on Coumadin. Also history of seizure disorder last seizure was 10 years ago, tonic-clonic proceeded with aura on multiple seizure medication including Keppra, Tegretol and Dilantin. Chronic left foot drop. She is following up with Dr. Berrios. Also she follows up with Dr. Roberts for sciatica pain Patient presents with ataxia and found to have multiple problems including UTI, vitamin B12 and folate deficiency, hyperthyroidism CT of the brain showing no hemorrhage, mass effect or midline shift. UTI: Treated with Levaquin because of her penicillin ALLERGY, urine culture grew sensitive E. coli and she was discharged on doxycycline to which bacteria sensitive. Avoid Levaquin upon discharge for possible interaction with warfarin Low B12 and folate: Been replaced, patient was instructed to follow up outpatient to recheck levels again and she agrees Hyperthyroidism: Started on methimazole with instruction to follow up as an outpatient and recheck level and 1-2 months and she agrees Neurologist evaluated the patient Over the last 3-4 days patient was back to her baseline, she could walk in the room at her baseline, she was eager to be discharged but workup was still pending for example urine culture Also on discharge her blood pressure was low, she received 750 L normal saline bolus, lisinopril was held and Coreg was lowered to 3.25 mg with recommendation for close outpatient follow-up to recheck blood pressure and adjust her medication and she agrees Problems and management plan were discussed with the patient and he verbalized understanding and acceptance Patient was found stable and can be discharged home however he needs follow-up as an outpatient. Patient was instructed to follow up with PCP Dr. Auguste within one week and patient agrees Also patient agrees with the appointments made for her with the neurologist on 11/[address] Salazar the farm crew leader on 10/30 and stated she will follow-up. Also patient was instructed to follow up with clinical outcomes manager Dr. Anthony in 3 weeks and she agrees to call and make her own appointment Gen: patient is a AAOx3, no distress CVS: S1-S2, RRR, no murmur Lungs: B/L CTA, no wheezing Abdomen: soft, no distention, no tenderness, positive bowel sounds Extremity: no leg edema or induration Time spent more than 35 minutes Patient Condition at Discharge: Stable Plan - Discharge Summary Discharge Rx Participant: No New Discharge Prescriptions: New Warfarin [Coumadin] 2.5 mg PO DAILY #30 tab Folic Acid 1 mg PO DAILY #30 tab methIMAzole [Tapazole] 5 mg PO TID #90 tab Doxycycline [Vibramycin] 100 mg PO BID 4 Days #7 cap Cyanocobalamin [Vitamin B-12] 1,000 mcg PO DAILY #30 tab Continue Atorvastatin Calcium [Lipitor] 80 mg PO DAILY Donepezil [Aricept] 10 mg PO HS levETIRAcetam [Keppra] 1,500 mg PO BID Gabapentin 600 mg PO TID Phenytoin Sodium Extended [Dilantin] 100 mg PO TID carBAMazepine [TEGretol] 200 mg PO TID Amiodarone [Cordarone] 200 mg PO DAILY Changed Carvedilol [Coreg] 3.125 mg PO BID-W/MEALS #30 Discontinued lisinopriL [Zestril] 10 mg PO DAILY Discharge Medication List Atorvastatin Calcium [Lipitor] 80 mg PO DAILY 03/08/14 [History] Donepezil [Aricept] 10 mg PO HS 07/11/14 [History] levETIRAcetam [Keppra] 1,500 mg PO BID 03/22/17 [History] Gabapentin 600 mg PO TID 02/20/19 [History] Amiodarone [Cordarone] 200 mg PO DAILY 02/22/20 [History] Phenytoin Sodium Extended [Dilantin] 100 mg PO TID 02/22/20 [History] carBAMazepine [TEGretol] 200 mg PO TID 02/22/20 [History] Carvedilol [Coreg] 3.125 mg PO BID-W/MEALS #30 10/24/20 [Rx] Cyanocobalamin [Vitamin B-12] 1,000 mcg PO DAILY #30 tab 10/24/20 [Rx] Doxycycline [Vibramycin] 100 mg PO BID 4 Days #7 cap 10/24/20 [Rx] Folic Acid 1 mg PO DAILY #30 tab 10/24/20 [Rx] Warfarin [Coumadin] 2.5 mg PO DAILY #30 tab 10/24/20 [Rx] methIMAzole [Tapazole] 5 mg PO TID #90 tab 10/24/20 [Rx] Follow up Appointment(s)/Referral(s): Garth Auguste MD [Primary Care Provider] - 1-2 days Niko Anthony MD [REFERRING] - 3 Weeks (Collar [facility]ner for your hyperthyroidism Patient will call and schedule) Uma Roberts MD [Medical Doctor] - 11/07/20 2:20 pm (For your 4 mm right internal carotid artery aneurysm) Emily Salazar MD [STAFF PHYSICIAN] - 10/30/20 8:45 am (DR. BERRIOS) Patient Instructions/Handouts: Warfarin (By mouth), Hyperthyroidism (DC), Elevated INR (DC), Vitamin B12 Deficiency (ED), Vitamin B12 Deficiency (GEN) Activity/Diet/Wound Care/Special Instructions: Heart healthy diet Activity is restricted until you see your doctor We recommend to hold your Coumadin tonight on 10/24, resume your Coumadin tomorrow 10/25 at your home dose. Please go and check your INR this coming Tuesday on 10/27/2020 after farm crew leader office. Monitor for any signs of bleeding *Please call 911 and come to emergency room if you feel any symptoms like dizziness, lightheadedness, chest pain or dyspnea,* Discharge Disposition: HOME SELF-CARE
== END 2020-10-24 15:20 | disposition home or self-care (01) | DRG 644 ==
LOC: EC 12:33 → 3SCARD 15:17
PROVIDERS: ADMIT Internal Medicine; ATTEND Internal Medicine
DX: E05.90 Thyrotoxicosis, unspecified without thyrotoxic crisis or storm (principal); F10.988 Alcohol use, unspecified with other alcohol-induced disorder; I47.2 Ventricular tachycardia; I42.0 Dilated cardiomyopathy; D68.59 Other primary thrombophilia; I69.354 Hemiplegia and hemiparesis following cerebral infarction affecting left non-dominant side; I50.22 Chronic systolic (congestive) heart failure; N39.0 Urinary tract infection, site not specified; I67.1 Cerebral aneurysm, nonruptured; I11.0 Hypertensive heart disease with heart failure; G93.89 Other specified disorders of brain; I95.9 Hypotension, unspecified; I48.0 Paroxysmal atrial fibrillation; G40.909 Epilepsy, unspecified, not intractable, without status epilepticus; Z20.822 Contact with and (suspected) exposure to COVID-19; I25.10 Atherosclerotic heart disease of native coronary artery without angina pectoris; H40.9 Unspecified glaucoma; L40.9 Psoriasis, unspecified; M21.372 Foot drop, left foot; I69.398 Other sequelae of cerebral infarction; F17.200 Nicotine dependence, unspecified, uncomplicated; F32.9 Major depressive disorder, single episode, unspecified; F41.9 Anxiety disorder, unspecified; I65.21 Occlusion and stenosis of right carotid artery; M54.30 Sciatica, unspecified side; E78.5 Hyperlipidemia, unspecified; I44.7 Left bundle-branch block, unspecified; M25.512 Pain in left shoulder; E53.8 Deficiency of other specified B group vitamins; R19.7 Diarrhea, unspecified; R29.6 Repeated falls; R26.0 Ataxic gait; B96.20 Unspecified Escherichia coli [E. coli] as the cause of diseases classified elsewhere; W19.XXXA Unspecified fall, initial encounter; Z79.899 Other long term (current) drug therapy; Z86.711 Personal history of pulmonary embolism; Z87.01 Personal history of pneumonia (recurrent); Z86.32 Personal history of gestational diabetes; Z87.440 Personal history of urinary (tract) infections; Z98.890 Other specified postprocedural states; Z86.718 Personal history of other venous thrombosis and embolism; Z87.81 Personal history of (healed) traumatic fracture; Z95.810 Presence of automatic (implantable) cardiac defibrillator; Z86.79 Personal history of other diseases of the circulatory system; Z88.0 Allergy status to penicillin; Z88.1 Allergy status to other antibiotic agents; Z82.49 Family history of ischemic heart disease and other diseases of the circulatory system
CPT/HCPCS: 36415; 70450; 70496; 70498; 80048; 80053; 80061; 80156; 80177; 80185; 80186; 81001; 82607; 82746; 83036; 83735; 84439; 84443; 84484; 85025; 85027; 85610; 85730; 87077; 87086; 87186; 87635; 93005; 93306; 93880; 94760; 95816; 99285

== ENCOUNTER 2020-11-10 15:01 | Inpatient (IN) | payer MEDICARE ==
[2020-11-10 15:13] LABS: Glucose,Whole Blood 108 mg/dL (75-99)
--- NOTE | 2020-11-10 15:21 | ED ---
General Adult HPI - General Chief complaint: Weakness Stated complaint: Possible Stroke Time Seen by Provider: 11/10/20 15:05 Source: patient, EMS Mode of arrival: EMS Limitations: physical limitation - History of Present Illness Initial comments: Dictation was produced using [employer] dictation software. please excuse any grammatical, word or spelling errors. This patient was cared for during a federal and state declared state of emergency secondary to Covid 19 Chief Complaint: 50-year-old female with past medical history coronary artery disease, heart failure, stroke with left-sided residual deficits, seizure disorder presents to the emergency department for weakness History of Present Illness: Patient is a 50-year-old female she allegedly has a past medical history of stroke. She has residual weakness that occurred from a stroke suffered in 2007. She has decreased sensory perception to the left extremities and weakness to the left face. EMS was called by friend earlier today because patient was significantly weak. Patient states that she having difficulties performing her activities of daily living. Weakness started acutely today. She woke up feeling in her usual state of health. She took some of her medications when at approximately 10:30 to 11 AM she all of a sudden felt super week. Patient denies any constitutional symptoms. EMS was concerned about CVA. The ROS documented in this emergency department record has been reviewed and confirmed by me. Those systems with pertinent positive or negative responses have been documented in the HPI. All other systems are other negative and/or noncontributory. PHYSICAL EXAM: General Impression: Alert and oriented x3, not in acute distress HEENT: Normocephalic atraumatic, extra-ocular movements intact, pupils equal and reactive to light bilaterally, mucous membranes moist. Cardiovascular: Heart regular rate and rhythm Chest: Able to complete full sentences, no retractions, no tachypnea Abdomen: abdomen soft, non-tender, non-distended, no organomegaly Musculoskeletal: Pulses present and equal in all extremities, no peripheral edema Motor: no focal deficits noted Neurological: Left facial weakness, decreased sensory to light touch of the left arm and left lower leg, no extremity weakness, patient's extremities are not ataxic, she is not aphasic, no focal motor or sensory deficits noted, Dr. KC of 0 Skin: Abrasions to the bilateral knees Psych: Normal affect and mood ED course: 50-year-old female presents to the emergency department for severe acute generalized weakness. She does not have any clinical features of CVA on bedside exam. Her delta NIH is 0. She has residual deficits from a stroke suffered 2007. vital signs upon arrival are within acceptable limits. EMS did report she had a mildly depressed sugar measured at 78. She was given some dextrose with improvement to 157. EKG interpretation: Ventricular rate 65, normal sinus rhythm,. Interval 80, QRS 114, QTc 470. No ME prolongation, no QTC prolongation, no ST or T-wave changes noted. EKG compared to 10/20/2020 showing no changes. Overall, this EKG is unremarkable Laboratory evaluation obtained. Leukopenia 2.9. INR greater than 10.0. Metabolic panel is within acceptable limits. TSH is less than 0.015. Patient does take methimazole. Serum alcohol is negative. Computed tomography scan of brain is unremarkable. Chest x-ray is unremarkable. Patient reevaluated bedside approximately 5:00 PM [facility] stable medical call condition. She does not have any pain complaints she is resting comfortably in no acute distress. Considering that patient is a fall risk doesn't have quite the best social situation giving her living arrangement and has supratherapeutic INR we will have patient admitted for medical monitoring and INR reversal. Case was discussed with Jonathan who is taking admission calls for Dr. Auguste. - Related Data Home Medications Medication Instructions Recorded Confirmed Atorvastatin Calcium [Lipitor] 80 mg PO HS 03/08/14 11/10/20 Donepezil [Aricept] 10 mg PO HS 07/11/14 11/10/20 levETIRAcetam [Keppra] 1,500 mg PO BID 03/22/17 11/10/20 Gabapentin 600 mg PO TID 02/20/19 11/10/20 Amiodarone [Cordarone] 200 mg PO DAILY 02/22/20 11/10/20 Phenytoin Sodium Extended 100 mg PO TID 02/22/20 11/10/20 [Dilantin] carBAMazepine [TEGretol] 200 mg PO TID 02/22/20 11/10/20 Cyanocobalamin [Vitamin B-12] 1,000 mcg PO HS 11/10/20 11/10/20 Folic Acid 1 mg PO HS 11/10/20 11/10/20 Warfarin [Coumadin] 2.5 mg PO HS 11/10/20 11/10/20 Previous Rx's Medication Instructions Recorded Carvedilol [Coreg] 3.125 mg PO BID-W/MEALS #30 10/24/20 methIMAzole [Tapazole] 5 mg PO TID #90 tab 10/24/20 Allergies Allergy/AdvReac Type Severity Reaction Status Date / Time cephalexin monohydrate Allergy Rash/Hives Verified 11/10/20 16:38 [From Keflex] Penicillins Allergy Anaphylaxis Verified 11/10/20 16:38 Review of Systems ROS Statement: Those systems with pertinent positive or pertinent negative responses have been documented in the HPI. ROS Other: All systems not noted in ROS Statement are negative. 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 History of Any Multi-Drug Resistant Organisms: None Reported Past Surgical History: Pacemaker Additional Past Surgical History / Comment(s): Bilateral eye surgery for glaucoma Past Anesthesia/Blood Transfusion Reactions: No Reported Reaction Type of Cardiac Device: Permanent Pacemaker Device Placement Date:: 2012 Past Psychological History: Anxiety, Depression Smoking Status: Current every day smoker Past Alcohol Use History: Occasional Past Drug Use History: None Reported - Past Family History Father Family Medical History: Coronary Artery Disease (CAD), Myocardial Infarction ([place]) Additional Family Medical History / Comment(s): Father is 75 yrs old. He had a silent [place]. Mother Additional Family Medical History / Comment(s): Mother is at 32 yrs d/t cardiomyopathy General Exam Limitations: physical limitation Course Vital Signs 11/10/20 11/10/20 15:05 17:17 Pulse Rate 74 63 Respiratory 20 20 Rate Blood Pressure 132/76 112/71 O2 Sat by Pulse 99 99 Oximetry Medical Decision Making - Lab Data Result diagrams: 11/10/20 15:17 11/10/20 15:17 Lab Results 11/10/20 11/10/20 11/10/20 Range/Units 15:11 15:17 15:17 WBC 2.9 L (3.8-10.6) k/uL RBC 4.14 (3.80-5.40) m/uL Hgb 13.2 (11.4-16.0) gm/dL Hct 39.9 (34.0-46.0) % MCV 96.2 (80.0-100.0) fL MCH 31.9 (25.0-35.0) pg MCHC 33.2 (31.0-37.0) g/dL RDW 13.1 (11.5-15.5) % Plt Count 194 (150-450) k/uL MPV 7.6 Neutrophils % 51 % Lymphocytes % 31 % Monocytes % 11 % Eosinophils % 2 % Basophils % 1 % Neutrophils # 1.5 (1.3-7.7) k/uL Lymphocytes # 0.9 L (1.0-4.8) k/uL Monocytes # 0.3 (0-1.0) k/uL Eosinophils # 0.1 (0-0.7) k/uL Basophils # 0.0 (0-0.2) k/uL PT (9.0-12.0) sec INR (<1.2) APTT (22.0-30.0) sec Sodium 137 (137-145) mmol/L Potassium 4.0 (3.5-5.1) mmol/L Chloride 105 (98-107) mmol/L Carbon Dioxide 25 (22-30) mmol/L Anion Gap 7 mmol/L BUN 7 (7-17) mg/dL Creatinine 0.52 (0.52-1.04) mg/dL Est GFR (CKD-EPI)AfAm >90 (>60 ml/min/1.73 sqM) Est GFR (CKD-EPI)NonAf >90 (>60 ml/min/1.73 sqM) Glucose 109 H (74-99) mg/dL POC Glucose (mg/dL) 108 H (75-99) mg/dL POC Glu Access Representative ID Shalini Alarcon Plasma Lactic Acid Miles (0.7-2.0) mmol/L Calcium 8.3 L (8.4-10.2) mg/dL Magnesium 1.8 (1.6-2.3) mg/dL Total Bilirubin 0.3 (0.2-1.3) mg/dL AST 32 (14-36) U/L ALT 16 (4-34) U/L Alkaline Phosphatase 56 (38-126) U/L Troponin I (0.000-0.034) ng/mL Total Protein 6.7 (6.3-8.2) g/dL Albumin 3.8 (3.5-5.0) g/dL TSH <0.015 L (0.465-4.680) mIU/L Serum Alcohol <10 mg/dL 11/10/20 11/10/20 11/10/20 Range/Units 15:17 15:17 15:17 WBC (3.8-10.6) k/uL RBC (3.80-5.40) m/uL Hgb (11.4-16.0) gm/dL Hct (34.0-46.0) % MCV (80.0-100.0) fL MCH (25.0-35.0) pg MCHC (31.0-37.0) g/dL RDW (11.5-15.5) % Plt Count (150-450) k/uL MPV Neutrophils % % Lymphocytes % % Monocytes % % Eosinophils % % Basophils % % Neutrophils # (1.3-7.7) k/uL Lymphocytes # (1.0-4.8) k/uL Monocytes # (0-1.0) k/uL Eosinophils # (0-0.7) k/uL Basophils # (0-0.2) k/uL PT 121.8 H (9.0-12.0) sec INR >10.0 H* (<1.2) APTT 45.9 H (22.0-30.0) sec Sodium (137-145) mmol/L Potassium (3.5-5.1) mmol/L Chloride (98-107) mmol/L Carbon Dioxide (22-30) mmol/L Anion Gap mmol/L BUN (7-17) mg/dL Creatinine (0.52-1.04) mg/dL Est GFR (CKD-EPI)AfAm (>60 ml/min/1.73 sqM) Est GFR (CKD-EPI)NonAf (>60 ml/min/1.73 sqM) Glucose (74-99) mg/dL POC Glucose (mg/dL) (75-99) mg/dL POC Glu Access Representative ID Plasma Lactic Acid Miles 1.1 (0.7-2.0) mmol/L Calcium (8.4-10.2) mg/dL Magnesium (1.6-2.3) mg/dL Total Bilirubin (0.2-1.3) mg/dL AST (14-36) U/L ALT (4-34) U/L Alkaline Phosphatase (38-126) U/L Troponin I <0.012 (0.000-0.034) ng/mL Total Protein (6.3-8.2) g/dL Albumin (3.5-5.0) g/dL TSH (0.465-4.680) mIU/L Serum Alcohol mg/dL Disposition Clinical Impression: Supratherapeutic INR, Risk for falls Disposition: ADMITTED IP TO THIS HOSP Condition: Fair Referrals: Garth Auguste MD [Primary Care Provider] - 1-2 days Decision Time: 17:23
[2020-11-10 15:29] LABS: Basophils % (A) 1 %; Eosinophils # (A) 0.1 k/uL (0-0.7); Eosinophils % (A) 2 %; HCT 39.9 % (34.0-46.0); HGB 13.2 gm/dL (11.4-16.0); Lymphocytes # (A) 0.9 k/uL (1.0-4.8); Lymphocytes % (A) 31 %; MCH 31.9 pg (25.0-35.0); MCHC 33.2 g/dL (31.0-37.0); MCV 96.2 fL (80.0-100.0); Mean Platelet Volume 7.6; Monocytes # (A) 0.3 k/uL (0-1.0); Monocytes % (A) 11 %; Neutrophils # (A) 1.5 k/uL (1.3-7.7); Neutrophils % (A) 51 %; Platelet Count 194 k/uL (150-450); RBC 4.14 m/uL (3.80-5.40); RDW 13.1 % (11.5-15.5); WBC 2.9 k/uL (3.8-10.6)
[2020-11-10 15:36] LABS: Partial Thromboplastin Time 45.9 sec (22.0-30.0)
--- NOTE | 2020-11-10 15:44 | XR ---
EXAMINATION TYPE: XR chest 1V portable DATE OF EXAM: 11/10/2020 COMPARISON: Chest x-ray February 21, 2020 HISTORY: Weakness. TECHNIQUE: Single AP portable frontal upright view of the chest is obtained. FINDINGS: There is chronic parenchymal change without new suspicious focal air space opacity, pleura l effusion, or pneumothorax seen. Slightly elevated left hemidiaphragm redemonstrated. The cardiac s ilhouette size is mildly enlarged with single lead pacemaker/defibrillator. The osseous structures are intact. IMPRESSION: Chronic changes and cardiomegaly without new acute pulmonary process.
[2020-11-10 15:53] LABS: Prothrombin Time 121.8 sec (9.0-12.0)
[2020-11-10 15:58] LABS: ALT 16 U/L (4-34); AST 32 U/L (14-36); African American GFR (CKD) >90 (>60 ml/min/1.73 sqM); Albumin 3.8 g/dL (3.5-5.0); Alcohol <10 mg/dL; Alkaline Phosphatase 56 U/L (38-126); Anion Gap 7 mmol/L; Blood Urea Nitrogen 7 mg/dL (7-17); Calcium 8.3 mg/dL (8.4-10.2); Carbon Dioxide 25 mmol/L (22-30); Chloride 105 mmol/L (98-107); Glucose 109 mg/dL (74-99); Magnesium 1.8 mg/dL (1.6-2.3); Non-African American GFR(CKD) >90 (>60 ml/min/1.73 sqM); Sodium 137 mmol/L (137-145); Total Bilirubin 0.3 mg/dL (0.2-1.3); Total Protein 6.7 g/dL (6.3-8.2)
[2020-11-10 16:00] LABS: INR >10.0 (<1.2)
[2020-11-10] MEDS ORDERED: PHYTONADIONE ORAL 5 MG/5 ML ORAL.SYRG PO STA (16:36)
--- NOTE | 2020-11-10 16:47 | CT ---
EXAMINATION TYPE: CT brain wo con DATE OF EXAM: 11/10/2020 COMPARISON: 02/21/2020 HISTORY: Weakness. CT DLP: 1176.4 mGycm Automated exposure control for dose reduction was used. Multiple axial sections were obtained of the brain without contrast. There is 8 x 3.5 cm area of hypodensity in the right temporal parietal lobe related to old ischemic i nfarct. There is also 3 cm area of hypodensity left posterior frontal lobe related to old infarct. Th ere is no mass effect nor midline shift. There is some enlargement of the right lateral ventricle adj acent to the infarct. There is no evidence of intracranial hemorrhage. The calvarium is intact. Skull base is intact. IMPRESSION: Old bilateral infarcts as above. No acute intracranial abnormality. No change compared to old exam.
[2020-11-10] MEDS ORDERED: NALOXONE 0.4 MG/ML 1 ML VIAL IV PRN (17:20)
[2020-11-10] MEDS ORDERED: SODIUM CHLORIDE 0.9% 1,000 ML IV SCH (17:30)
[2020-11-10] MEDS: carvediloL 3.125 MG TAB PO SCH (18:09)
[2020-11-10] MEDS ORDERED: FOLIC ACID 1 MG TAB PO SCH (21:00)
[2020-11-10] MEDS ORDERED: DONEPEZIL 10 MG TAB PO SCH (21:00)
[2020-11-10] MEDS ORDERED: CYANOCOBALAMIN 500 MCG TAB PO SCH (21:00)
[2020-11-10] MEDS ORDERED: ATORVASTATIN 80 MG TAB PO SCH (21:00)
[2020-11-10] MEDS: PHENYTOIN SODIUM EXTENDED 100 MG CAP PO SCH (23:28)
[2020-11-10] MEDS: carBAMazepine 200 MG TAB PO SCH (23:29)
[2020-11-11 04:33] LABS: INR 3.2 (<1.2); Prothrombin Time 30.7 sec (9.0-12.0)
[2020-11-11 04:34] LABS: ALT 13 U/L (4-34); AST 27 U/L (14-36); African American GFR (CKD) >90 (>60 ml/min/1.73 sqM); Albumin 3.3 g/dL (3.5-5.0); Alkaline Phosphatase 65 U/L (38-126); Anion Gap 3 mmol/L; Blood Urea Nitrogen 12 mg/dL (7-17); Calcium 8.3 mg/dL (8.4-10.2); Carbon Dioxide 27 mmol/L (22-30); Chloride 102 mmol/L (98-107); Glucose 94 mg/dL (74-99); Magnesium 1.8 mg/dL (1.6-2.3); Non-African American GFR(CKD) >90 (>60 ml/min/1.73 sqM); Sodium 132 mmol/L (137-145); Total Bilirubin 0.3 mg/dL (0.2-1.3)
[2020-11-11 04:43] LABS: Basophils % (A) 0 %; Eosinophils # (A) 0.1 k/uL (0-0.7); Eosinophils % (A) 1 %; HCT 36.8 % (34.0-46.0); HGB 12.2 gm/dL (11.4-16.0); Lymphocytes # (A) 1.2 k/uL (1.0-4.8); Lymphocytes % (A) 29 %; MCH 31.8 pg (25.0-35.0); MCHC 33.2 g/dL (31.0-37.0); MCV 95.9 fL (80.0-100.0); Monocytes # (A) 0.4 k/uL (0-1.0); Monocytes % (A) 9 %; Neutrophils # (A) 2.4 k/uL (1.3-7.7); Neutrophils % (A) 59 %; Platelet Count 177 k/uL (150-450); RBC 3.83 m/uL (3.80-5.40); RDW 13.4 % (11.5-15.5); WBC 4.2 k/uL (3.8-10.6)
[2020-11-11 04:51] LABS: T4, Free (Free Thyroxine) 3.06 ng/dL (0.78-2.19)
[2020-11-11] MEDS: carBAMazepine 200 MG TAB PO SCH (08:28)
[2020-11-11] MEDS: carvediloL 3.125 MG TAB PO SCH (08:28)
--- NOTE | 2020-11-11 08:40 | P.HPIM ---
History of Present Illness H&P Date: 11/11/20 Chief Complaint: Weakness 50-year-old female was admitted to the hospital for supratherapeutic INR of greater than 10. Patient presented to the emergency department with the c omplaint of generalized weakness and frequent falling. Patient had extensive diagnostic workup in the emergency department has CT of the brain no acute changes, chest x-ray no acute changes, labs as followleukopenia 2.9, INR greater than 10 my TSH less than 0.015currently on tapazolemay need to adjust dosage.evaluations of labs this a.m.CBC unremarkable, INR 3.2 after vitamin K given last night per ER. Chem panel sodium 132, TSH less than 0.015, free T4 3.06, free T3-6.4., Tegretol level 11.5, and awaiting on Keppra level. Patient has significant medical history of coronary artery disease, heart failure, stroke with left-sided residual deficits, epilepsy, pulmonary embolisms, cardiom yopathy, and mixed anxiety and depression. Upon evaluation of patient, resting comfortably in bed, moving all extremities. Patient denies fever, chills, shortness of breath, chest pain, palpitations, abdominal pain, nausea, or diarrhea. Patient endorses mild acute on chronic back painwill continue gabapentin. Review of Systems Constitutional: Reports weakness Musculoskeletal: Reports muscle cramps, Reports muscle weakness Neurological: Reports weakness Hematologic/Lymphatic: Reports easy bruising Past Medical History Past Medical History: Coronary Artery Disease (CAD), Heart Failure, CVA/TIA, Eye Disorder, Pneumonia, Pulmonary Embolus (PE), Seizure Disorder, Skin Disorder Additional Past Medical History / Comment(s): Last seizure 2009, CVA 2007 with L sided weakness arm and leg and has L foot drop, TIA 2018, cardiomyopathy, R PE and pneumothorax/pneumonia following leg fracture in 1994, gestational diabetes with all pregnancies (4), bilateral glaucoma with surgery, psoriasis in the past, UTIs. History of Any Multi-Drug Resistant Organisms: None Reported Past Surgical History: Pacemaker Additional Past Surgical History / Comment(s): Bilateral eye surgery for glaucoma Past Anesthesia/Blood Transfusion Reactions: No Reported Reaction Type of Cardiac Device: Permanent Pacemaker Device Placement Date:: 2012 Past Psychological History: Anxiety, Depression Additional Psychological History / Comment(s): Pt resides with her boyfriend. She is disabled. She does not drive, she uses the bus system. Smoking Status: Current every day smoker Past Alcohol Use History: Occasional Additional Past Alcohol Use History / Comment(s): Pt started smoking in 1992 and has been an occasional smoker over the years. Past Drug Use History: None Reported - Past Family History Father Family Medical History: Coronary Artery Disease (CAD), Myocardial Infarction (LA) Additional Family Medical History / Comment(s): Father is 75 yrs old. He had a silent [place]. Mother Additional Family Medical History / Comment(s): Mother is at 32 yrs d/t cardiomyopathy Medications and Allergies Home Medications and Allergies Comment(s): Medications and ALLERGIES reviewed Home Medications Medication Instructions Recorded Confirmed Type Atorvastatin Calcium [Lipitor] 80 mg PO HS 03/08/14 11/10/20 History Donepezil [Aricept] 10 mg PO HS 07/11/14 11/10/20 History levETIRAcetam [Keppra] 1,500 mg PO BID 03/22/17 11/10/20 History Gabapentin 600 mg PO TID 02/20/19 11/10/20 History Amiodarone [Cordarone] 200 mg PO DAILY 02/22/20 11/10/20 History Phenytoin Sodium Extended 100 mg PO TID 02/22/20 11/10/20 History [Dilantin] carBAMazepine [TEGretol] 200 mg PO TID 02/22/20 11/10/20 History Carvedilol [Coreg] 3.125 mg PO BID-W/MEALS #30 10/24/20 11/10/20 Rx methIMAzole [Tapazole] 5 mg PO TID #90 tab 10/24/20 11/10/20 Rx Cyanocobalamin [Vitamin B-12] 1,000 mcg PO HS 11/10/20 11/10/20 History Folic Acid 1 mg PO HS 11/10/20 11/10/20 History Warfarin [Coumadin] 2.5 mg PO HS 11/10/20 11/10/20 History Allergies Allergy/AdvReac Type Severity Reaction Status Date / Time cephalexin monohydrate Allergy Rash/Hives Verified 11/10/20 16:38 [From Keflex] Penicillins Allergy Anaphylaxis Verified 11/10/20 16:38 Physical Exam Vitals: Vital Signs Temp Pulse Pulse Resp BP BP Pulse Ox 11/11/20 04:00 98.2 F 74 16 114/47 98 11/11/20 02:00 69 18 11/11/20 00:00 98.4 F 69 18 125/73 97 11/10/20 20:01 98.2 F 74 18 102/72 97 11/10/20 20:00 98.2 F 74 16 102/72 99 11/10/20 17:53 98.1 F 67 20 105/67 99 11/10/20 17:17 63 20 112/71 99 11/10/20 15:05 74 20 132/76 99 Intake and Output 11/10/20 11/11/20 11/11/20 22:59 06:59 14:59 Output Total 300 Balance -300 Output: Urine 300 Other: Weight 52.163 kg - Constitutional General appearance: cooperative - EENT Eyes: EOMI, PERRLA ENT: normal oropharynx - Respiratory Respiratory: bilateral: CTA (Anterior and posterior lung shetty) - Cardiovascular Normal sinus mechanism Heart rate: 74 Rhythm: regular Heart sounds: normal: S1, S2 radial pulse Peripheral Pulses: bilateral: Normal dorsalis pedis Peripheral Pulses: bilateral: Normal - Gastrointestinal General gastrointestinal: normal bowel sounds - Integumentary Ecchymosis noted to the left lower extremity outer lateral aspect Integumentary: pale - Neurologic Neurologic: CNII-XII intact - Musculoskeletal Musculoskeletal: generalized weakness, left sided weakness Results CBC & Chem 7: 11/11/20 03:48 11/11/20 03:48 Labs: Abnormal Lab Results - Last 24 Hours (Table) 11/10/20 11/10/20 11/10/20 Range/Units 15:11 15:17 15:17 WBC 2.9 L (3.8-10.6) k/uL Lymphocytes # 0.9 L (1.0-4.8) k/uL PT (9.0-12.0) sec INR (<1.2) APTT (22.0-30.0) sec Sodium (137-145) mmol/L Glucose 109 H (74-99) mg/dL POC Glucose (mg/dL) 108 H (75-99) mg/dL Calcium 8.3 L (8.4-10.2) mg/dL Total Protein (6.3-8.2) g/dL Albumin (3.5-5.0) g/dL TSH <0.015 L (0.465-4.680) mIU/L Free T4 (0.78-2.19) ng/dL Free T3 pg/mL (2.8-5.3) pg/ml 11/10/20 11/11/20 11/11/20 Range/Units 15:17 03:48 03:48 WBC (3.8-10.6) k/uL Lymphocytes # (1.0-4.8) k/uL PT 121.8 H 30.7 H (9.0-12.0) sec INR >10.0 H* 3.2 H (<1.2) APTT 45.9 H (22.0-30.0) sec Sodium 132 L (137-145) mmol/L Glucose (74-99) mg/dL POC Glucose (mg/dL) (75-99) mg/dL Calcium 8.3 L (8.4-10.2) mg/dL Total Protein 6.0 L (6.3-8.2) g/dL Albumin 3.3 L (3.5-5.0) g/dL TSH <0.015 L (0.465-4.680) mIU/L Free T4 3.06 H (0.78-2.19) ng/dL Free T3 pg/mL 6.4 H (2.8-5.3) pg/ml Chest x-ray: report reviewed CT scan - chest: report reviewed Thrombosis Risk Factor Assmnt - Choose All That Apply Each Factor Represents 1 point: Age 41-60 years Thrombosis Risk Factor Assessment Total Risk Factor Score: 1 Thrombosis Risk Factor Assessment Level: Low Risk Assessment and Plan Assessment: Supratherapeutic INR greater than 10hold Coumadinvitamin K 2.5 by mouth oral given last nightINR 3.2 this a.m. Generalized weaknesswith history of CVA with left-sided residualsconsultation for physical therapy occupational therapy TSH less than 0.015on Tapazole 5 mg by mouth 3 times a day May need to adjust dosage Coronary artery disease History of heart failure History of CVA with left-sided residual deficits Epilepsycontinue to monitor for seizure precautions Tegretol level therapeutic awaiting on Keppra level History of pulmonary embolus Cardiomyopathy Mixed anxiety and depression Continue home medications Continue medical management Hopeful discharge today Time with Patient: Greater than 30
[2020-11-11] MEDS ORDERED: GABAPENTIN 300 MG CAP PO SCH (09:00)
[2020-11-11] MEDS ORDERED: methIMAzole 5 MG TAB PO SCH (09:00)
[2020-11-11] MEDS ORDERED: AMIODARONE 200 MG TAB PO SCH (09:00)
[2020-11-11] MEDS: PHENYTOIN SODIUM EXTENDED 100 MG CAP PO SCH (10:31)
[2020-11-11 12:35] VITALS: BP 98/54; PULSE 72; RESP 18; TEMP 99.4
--- NOTE | 2020-11-11 14:39 | P.DS ---
Providers Date of admission: 11/10/20 17:20 Expected date of discharge: 11/11/20 Attending physician: Garth Auguste Primary care physician: Garth Auguste Hospital Course: 50-year-old female was admitted to the hospital for super therapeutic INR greater than 10 vitamin K 2.5 mg PO was given in the emergency department repeat INR was 3.2. Patient had extensive diagnostic workup in emergency department consisting of CT of the head, chest x-ray, EKG and diagnostic laboratories. Patient found to have TSH less than 0.015 continue Tapazole 5 mg PO TID follow-up with primary care in one day for referral to endocrinology. Patient has significant history of epilepsy following with while patient need necessarily to monitor therapeutic levels of antiepileptic drugs. Upon discharge patient awake alert and oriented times four following commands in no acute signs of distress. Patient have close follow-up with primary care tomorrow for necessary referrals for multiple comorbidities. Assessment: Super therapeutic INR greater than 10 vitamin K 2.5 mg given PO, hold Coumadin for one more night INR upon discharge 3.2 generalized weakness follow-up outpatient for physical therapy due to previous stroke with left-sided residuals hyperthyroidism-continue tapazole 5 mg PO TID follow-up with primary care tomorrow need referral to endocrinology coronary artery disease history of heart failure history of CVA with left-sided residual deficits epilepsy monitor antiepileptic therapeutic ranges history of pulmonary embolism cardiomyopathy mixed anxiety and depression Health Concerns: Poor medical compliance multiple comorbidities multiple specialists without follow-up Pertinent Studies: CT of the head without contrast no acute changes chest x-ray no acute changes Procedures: No procedures performed Patient Condition at Discharge: Fair Plan - Discharge Summary Discharge Rx Participant: No New Discharge Prescriptions: Continue Atorvastatin Calcium [Lipitor] 80 mg PO HS Donepezil [Aricept] 10 mg PO HS levETIRAcetam [Keppra] 1,500 mg PO BID Gabapentin 600 mg PO TID Phenytoin Sodium Extended [Dilantin] 100 mg PO TID carBAMazepine [TEGretol] 200 mg PO TID Amiodarone [Cordarone] 200 mg PO DAILY methIMAzole [Tapazole] 5 mg PO TID #90 tab Carvedilol [Coreg] 3.125 mg PO BID-W/MEALS #30 Cyanocobalamin [Vitamin B-12] 1,000 mcg PO HS Folic Acid 1 mg PO HS Changed Warfarin [Coumadin] 2.5 mg PO HS #0 Discharge Medication List Atorvastatin Calcium [Lipitor] 80 mg PO HS 03/08/14 [History] Donepezil [Aricept] 10 mg PO HS 07/11/14 [History] levETIRAcetam [Keppra] 1,500 mg PO BID 03/22/17 [History] Gabapentin 600 mg PO TID 02/20/19 [History] Amiodarone [Cordarone] 200 mg PO DAILY 02/22/20 [History] Phenytoin Sodium Extended [Dilantin] 100 mg PO TID 02/22/20 [History] carBAMazepine [TEGretol] 200 mg PO TID 02/22/20 [History] Carvedilol [Coreg] 3.125 mg PO BID-W/MEALS #30 10/24/20 [Rx] methIMAzole [Tapazole] 5 mg PO TID #90 tab 10/24/20 [Rx] Cyanocobalamin [Vitamin B-12] 1,000 mcg PO HS 11/10/20 [History] Folic Acid 1 mg PO HS 11/10/20 [History] Warfarin [Coumadin] 2.5 mg PO HS #0 11/11/20 [Rx] Follow up Appointment(s)/Referral(s): Garth Auguste MD [Primary Care Provider] - 11/12/20 2:20 pm (TUESDAY) Patient Instructions/Handouts: Elevated INR (DC) Discharge Disposition: HOME SELF-CARE
== END 2020-11-11 14:42 | disposition home or self-care (01) | DRG 948 ==
LOC: EC 15:01 → 3SCARD 17:20
PROVIDERS: ADMIT Family Medicine; ATTEND Family Medicine
DX: R53.1 Weakness (principal); I42.9 Cardiomyopathy, unspecified; I69.354 Hemiplegia and hemiparesis following cerebral infarction affecting left non-dominant side; I50.9 Heart failure, unspecified; G40.909 Epilepsy, unspecified, not intractable, without status epilepticus; Z20.822 Contact with and (suspected) exposure to COVID-19; R79.1 Abnormal coagulation profile; T45.515A Adverse effect of anticoagulants, initial encounter; E05.90 Thyrotoxicosis, unspecified without thyrotoxic crisis or storm; I69.392 Facial weakness following cerebral infarction; I69.398 Other sequelae of cerebral infarction; M21.372 Foot drop, left foot; I25.10 Atherosclerotic heart disease of native coronary artery without angina pectoris; S80.212A Abrasion, left knee, initial encounter; S80.211A Abrasion, right knee, initial encounter; D72.819 Decreased white blood cell count, unspecified; F41.8 Other specified anxiety disorders; R29.6 Repeated falls; H40.9 Unspecified glaucoma; L40.9 Psoriasis, unspecified; G89.29 Other chronic pain; M54.9 Dorsalgia, unspecified; F17.210 Nicotine dependence, cigarettes, uncomplicated; Z71.6 Tobacco abuse counseling; Z79.01 Long term (current) use of anticoagulants; Z79.899 Other long term (current) drug therapy; Z86.711 Personal history of pulmonary embolism; Z91.81 History of falling; Z86.32 Personal history of gestational diabetes; Z87.01 Personal history of pneumonia (recurrent); Z87.440 Personal history of urinary (tract) infections; Z87.81 Personal history of (healed) traumatic fracture; Z95.0 Presence of cardiac pacemaker; Z98.890 Other specified postprocedural states; Z88.1 Allergy status to other antibiotic agents; Z88.0 Allergy status to penicillin; Z82.49 Family history of ischemic heart disease and other diseases of the circulatory system
CPT/HCPCS: 36415; 70450; 71045; 80053; 80156; 80177; 80185; 80320; 83605; 83735; 84439; 84443; 84481; 84484; 85025; 85610; 85730; 87635; 93005; 99285

== ENCOUNTER → 2021-03-19 | Outpatient (CLI) | payer MEDICARE ==
[2021-03-19 23:59] LABS: HCT 39.6 % (37.2-46.3); HGB 12.6 g/dL (12.0-15.0); MCH 31.3 pg (27.0-32.0); MCHC 31.8 g/dL (32.0-37.0); MCV 98.3 fL (80.0-97.0); Mean Platelet Volume 11.8 fL (9.5-12.2); Platelet Count 209 X 10*3/uL (140-440); RBC 4.03 X 10*6/uL (4.10-5.20); RDW 12.4 % (11.5-14.5); WBC 3.59 X 10*3/uL (4.50-10.00)
[2021-03-20 13:41] LABS: ALT 31 U/L (8-44); AST 28 U/L (13-35); African American GFR (CKD) 123.2 (60.0-200.0); BUN/Creat Ratio 21.67 Ratio (12.00-20.00); Carbon Dioxide 25.9 mmol/L (21.6-31.8); Chloride 106 mmol/L (96-109); Chol/HDL Ratio 4.31; Cholesterol 254 mg/dL (0-200); Glucose 90 mg/dL (70-110); Non-African American GFR(CKD) 106.3 (60.0-200.0); Potassium 4.9 mmol/L (3.5-5.5); Sodium 141 mmol/L (135-145)
== END | disposition home or self-care (01) ==
LOC: LABWHC1 13:56
PROVIDERS: ATTEND Internal Medicine Cardiovascular Disease
DX: E78.2 Mixed hyperlipidemia (principal)
CPT/HCPCS: 36415; 80048; 80061; 84443; 84450; 84460; 85027

== ENCOUNTER 2021-07-21 10:22 | Observation (INO) | payer MEDICARE ==
[2021-07-21 10:59] LABS: Glucose,Whole Blood 101 mg/dL (75-99)
[2021-07-21] MEDS ORDERED: SODIUM CHLORIDE 0.9% 1,000 ML IV STA (11:00)
[2021-07-21 11:42] LABS: Basophils % (A) 1 %; Eosinophils % (A) 1 %; HCT 39.8 % (34.0-46.0); Lymphocytes # (A) 1.2 k/uL (1.0-4.8); Lymphocytes % (A) 25 %; MCH 31.4 pg (25.0-35.0); MCHC 32.6 g/dL (31.0-37.0); MCV 96.2 fL (80.0-100.0); Mean Platelet Volume 8.5; Monocytes # (A) 0.3 k/uL (0-1.0); Monocytes % (A) 7 %; Neutrophils # (A) 2.9 k/uL (1.3-7.7); Neutrophils % (A) 65 %; Platelet Count 184 k/uL (150-450); RBC 4.13 m/uL (3.80-5.40); RDW 12.5 % (11.5-15.5); WBC 4.5 k/uL (3.8-10.6)
--- NOTE | 2021-07-21 11:49 | CT ---
EXAMINATION TYPE: CT brain wo con for TPA DATE OF EXAM: 07/21/2021 HISTORY: unable to walk, history of stroke CT DLP: 1173.4 mGycm. Automated Exposure Control for Dose Reduction was Utilized. TECHNIQUE: CT scan of the head is performed without contrast. COMPARISON: CT brain November 10, 2020. FINDINGS: There is no acute intracranial hemorrhage or midline shift identified. Area of encephalom alacia right MCA distribution involving frontal parietal and superior temporal lobes redemonstrated. Ex vacuo dilatation of the right ventricular system redemonstrated. Background mild diffuse cerebral atrophy and additional smaller old infarct left frontal lobe axial image 35. The globes are intact a nd the visualized sinuses are clear. IMPRESSION: No acute intracranial hemorrhage or midline shift. There is significant right-sided enc ephalomalacia and small old left frontal lobe infarct redemonstrated. No significant change from mos t recent CT.
--- NOTE | 2021-07-21 11:52 | ED ---
General Adult HPI - General Chief complaint: Weakness Stated complaint: Poss Stroke Time Seen by Provider: 07/21/21 10:57 Source: patient, RN notes reviewed, old records reviewed Mode of arrival: wheelchair Limitations: no limitations - History of Present Illness Initial comments: 51-year-old female with previous CVA with residual left-sided weakness pr esenting for left leg weakness and fall with no reported injury. Patient denies central chest pain. She states she does follow with neurology and is currently taking eliquis. The exact timing of her symptoms are not well-known she states that she always has some weakness in the leg, left arm, and facial droop she states this is not new. - Related Data Home Medications Medication Instructions Recorded Confirmed Atorvastatin Calcium [Lipitor] 80 mg PO HS 03/08/14 07/21/21 levETIRAcetam [Keppra] 1,500 mg PO BID 03/22/17 07/21/21 Gabapentin 600 mg PO TID 02/20/19 07/21/21 Amiodarone [Cordarone] 200 mg PO DAILY 02/22/20 07/21/21 carBAMazepine [TEGretol] 200 mg PO TID 02/22/20 07/21/21 Apixaban [Eliquis] 5 mg PO BID 07/21/21 07/21/21 Spironolactone [Aldactone] 25 mg PO DAILY 07/21/21 07/21/21 Allergies Allergy/AdvReac Type Severity Reaction Status Date / Time cephalexin monohydrate Allergy Rash/Hives Verified 07/21/21 10:38 [From Keflex] Penicillins Allergy Anaphylaxis Verified 07/21/21 10:38 Review of Systems ROS Statement: Those systems with pertinent positive or pertinent negative responses have been documented in the HPI. ROS Other: All systems not noted in ROS Statement are negative. 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 History of Any Multi-Drug Resistant Organisms: None Reported Past Surgical History: Pacemaker Additional Past Surgical History / Comment(s): Bilateral eye surgery for glaucoma Past Anesthesia/Blood Transfusion Reactions: No Reported Reaction Type of Cardiac Device: Permanent Pacemaker Device Placement Date:: 2012 Past Psychological History: Anxiety, Depression Smoking Status: Current every day smoker Past Alcohol Use History: Occasional Past Drug Use History: None Reported - Past Family History Father Family Medical History: Coronary Artery Disease (CAD), Myocardial Infarction ([place]) Additional Family Medical History / Comment(s): Father is 75 yrs old. He had a silent [place]. Mother Additional Family Medical History / Comment(s): Mother is at 32 yrs d/t cardiomyopathy General Exam Limitations: no limitations General appearance: alert, in no apparent distress Head exam: Present: atraumatic, normocephalic Eye exam: Present: normal appearance, PERRL ENT exam: Present: normal exam Neck exam: Present: normal inspection. Absent: tenderness, meningismus Respiratory exam: Present: normal lung sounds bilaterally. Absent: respiratory distress, wheezes Cardiovascular Exam: Present: regular rate, normal rhythm GI/Abdominal exam: Present: soft. Absent: distended, tenderness, guarding Extremities exam: Present: normal inspection, normal capillary refill Neurological exam: Present: alert, oriented X3, motor sensory deficit (Left facial droop, left arm drift, left leg drift. NIH of 3, these are previous neuro deficits.) Psychiatric exam: Present: normal affect, normal mood Skin exam: Present: warm, dry, intact. Absent: cyanosis, diaphoretic Course Vital Signs 07/21/21 07/21/21 10:30 12:27 Temperature 97.5 F L 98.1 F Pulse Rate 72 58 L Respiratory 18 18 Rate Blood Pressure 137/74 122/69 O2 Sat by Pulse 97 99 Oximetry EKG Findings - EKG Comments: EKG Findings:: EKG: Normal sinus rhythm, incomplete left bundle branch block, rate of 63, NV interval 180, QRS duration 116, QTC 493 Medical Decision Making - Medical Decision Making 51-year-old female history of previous CVA with residual left-sided weakness presenting with worsening weakness. She states is slightly worse than baseline at this caused her to fall without injury. CT brain showed encephalomalacia unchanged from prior, no hemorrhage. Patient has normal CBC, normal CMP. Patient believes that her symptoms have improved at the time my reevaluation. This may be TIA. She will be placed in observation for neurology consultation. Case is discussed with Dr. Auguste who will admit. - Lab Data Result diagrams: 07/21/21 11:21 07/21/21 11:21 Lab Results 07/21/21 07/21/21 07/21/21 Range/Units 10:56 11:21 11:21 WBC 4.5 (3.8-10.6) k/uL RBC 4.13 (3.80-5.40) m/uL Hgb 13.0 (11.4-16.0) gm/dL Hct 39.8 (34.0-46.0) % MCV 96.2 (80.0-100.0) fL MCH 31.4 (25.0-35.0) pg MCHC 32.6 (31.0-37.0) g/dL RDW 12.5 (11.5-15.5) % Plt Count 184 (150-450) k/uL MPV 8.5 Neutrophils % 65 % Lymphocytes % 25 % Monocytes % 7 % Eosinophils % 1 % Basophils % 1 % Neutrophils # 2.9 (1.3-7.7) k/uL Lymphocytes # 1.2 (1.0-4.8) k/uL Monocytes # 0.3 (0-1.0) k/uL Eosinophils # 0.0 (0-0.7) k/uL Basophils # 0.0 (0-0.2) k/uL PT 10.2 (9.0-12.0) sec INR 0.9 (<1.2) APTT 22.7 (22.0-30.0) sec Sodium (137-145) mmol/L Potassium (3.5-5.1) mmol/L Chloride (98-107) mmol/L Carbon Dioxide (22-30) mmol/L Anion Gap mmol/L BUN (7-17) mg/dL Creatinine (0.52-1.04) mg/dL Est GFR (CKD-EPI)AfAm (>60 ml/min/1.73 sqM) Est GFR (CKD-EPI)NonAf (>60 ml/min/1.73 sqM) Glucose (74-99) mg/dL POC Glucose (mg/dL) 101 H (75-99) mg/dL POC Glu [employer] ID [place] Calcium (8.4-10.2) mg/dL Total Bilirubin (0.2-1.3) mg/dL AST (14-36) U/L ALT (4-34) U/L Alkaline Phosphatase (38-126) U/L Troponin I (0.000-0.034) ng/mL Total Protein (6.3-8.2) g/dL Albumin (3.5-5.0) g/dL 07/21/21 07/21/21 Range/Units 11:21 11:21 WBC (3.8-10.6) k/uL RBC (3.80-5.40) m/uL Hgb (11.4-16.0) gm/dL Hct (34.0-46.0) % MCV (80.0-100.0) fL MCH (25.0-35.0) pg MCHC (31.0-37.0) g/dL RDW (11.5-15.5) % Plt Count (150-450) k/uL MPV Neutrophils % % Lymphocytes % % Monocytes % % Eosinophils % % Basophils % % Neutrophils # (1.3-7.7) k/uL Lymphocytes # (1.0-4.8) k/uL Monocytes # (0-1.0) k/uL Eosinophils # (0-0.7) k/uL Basophils # (0-0.2) k/uL PT (9.0-12.0) sec INR (<1.2) APTT (22.0-30.0) sec Sodium 136 L (137-145) mmol/L Potassium 4.8 (3.5-5.1) mmol/L Chloride 104 (98-107) mmol/L Carbon Dioxide 22 (22-30) mmol/L Anion Gap 10 mmol/L BUN 19 H (7-17) mg/dL Creatinine 0.58 (0.52-1.04) mg/dL Est GFR (CKD-EPI)AfAm >90 (>60 ml/min/1.73 sqM) Est GFR (CKD-EPI)NonAf >90 (>60 ml/min/1.73 sqM) Glucose 101 H (74-99) mg/dL POC Glucose (mg/dL) (75-99) mg/dL POC Glu [employer] Design Architect ID Calcium 8.7 (8.4-10.2) mg/dL Total Bilirubin 0.4 (0.2-1.3) mg/dL AST 34 (14-36) U/L ALT 22 (4-34) U/L Alkaline Phosphatase 55 (38-126) U/L Troponin I <0.012 (0.000-0.034) ng/mL Total Protein 7.4 (6.3-8.2) g/dL Albumin 4.1 (3.5-5.0) g/dL Disposition Clinical Impression: TIA (transient ischemic attack) Disposition: ADMITTED IP TO THIS HOSP Condition: Stable Is patient prescribed a controlled substance at d/c from ED?: No Referrals: Garth Auguste MD [Primary Care Provider] - 1-2 days Decision to Admit Reason: Admit from EC Decision Date: 07/21/21 Decision Time: 13:30
--- NOTE | 2021-07-21 11:52 | XR ---
EXAMINATION TYPE: XR chest 2V DATE OF EXAM: 07/21/2021 COMPARISON: Chest x-ray November 10, 2020 HISTORY: Altered mental status and weakness TECHNIQUE: Frontal and lateral views of the chest are obtained. FINDINGS: There is cardiomegaly with single lead pacemaker/defibrillator redemonstrated. Elevated le ft hemidiaphragm redemonstrated. No new suspicious focal airspace opacity. No pleural effusion or pne umothorax seen bilaterally The osseous structures are demineralized. IMPRESSION: Cardiomegaly with acute pulmonary process. No significant change from prior.
[2021-07-21 11:55] LABS: ALT 22 U/L (4-34); African American GFR (CKD) >90 (>60 ml/min/1.73 sqM); Albumin 4.1 g/dL (3.5-5.0); Anion Gap 10 mmol/L; Blood Urea Nitrogen 19 mg/dL (7-17); Calcium 8.7 mg/dL (8.4-10.2); Carbon Dioxide 22 mmol/L (22-30); Chloride 104 mmol/L (98-107); Glucose 101 mg/dL (74-99); Non-African American GFR(CKD) >90 (>60 ml/min/1.73 sqM); Sodium 136 mmol/L (137-145); Total Bilirubin 0.4 mg/dL (0.2-1.3); Total Protein 7.4 g/dL (6.3-8.2)
[2021-07-21 11:59] LABS: INR 0.9 (<1.2); Partial Thromboplastin Time 22.7 sec (22.0-30.0); Prothrombin Time 10.2 sec (9.0-12.0)
[2021-07-21 12:01] LABS: Potassium 4.8 mmol/L (3.5-5.1)
[2021-07-21 12:02] LABS: AST 34 U/L (14-36); Alkaline Phosphatase 55 U/L (38-126)
[2021-07-21] MEDS ORDERED: ASPIRIN 325 MG TAB PO STA (13:27)
[2021-07-21] MEDS ORDERED: ACETAMINOPHEN TAB 325 MG TAB PO PRN (13:27)
[2021-07-21 16:22] LABS: Carbamazepine (Tegretol) 14.7 ug/mL; Magnesium 1.9 mg/dL (1.6-2.3)
[2021-07-21 16:36] LABS: T4, Free (Free Thyroxine) 2.07 ng/dL (0.78-2.19)
[2021-07-21] MEDS: SODIUM CHLORIDE 0.9% 1,000 ML IV SCH (16:56)
[2021-07-21] MEDS ORDERED: Magnesium Replacement Protocol 1 EACH MISC MISCELLANE PRN (18:28)
--- NOTE | 2021-07-21 18:58 | P.HPIM ---
History of Present Illness H&P Date: 07/21/21 Chief Complaint: Weakness with no associated fall 51-year-old female with significant medical history of coronary artery disease, heart failure, history of CVA with left-sided residual deficits, epilepsy, pulmonary embolisms, cardiomyopathy, hyperthyroidism, mixed anxiety and depression, and several additional comorbidities is admitted to the hospital for rule out transient ischemic attack. Patient had extensive diagnostic workup in the emergency department consisting of CT of the brain without contrast, impression there is significant right-sided encephalomalacia and small old left frontal lobe infarct, no changes from previous CT of the head without contrast. Chest x-ray on a consistent with cardiomegaly. A lead EKG normal sinus rhythm, no ST depression elevation or T-wave inversion noted from previous EKG. CBC performed in the emergency Department unremarkable, CMP preformed emergency Department unremarkable. Additional labs TSH consistently less than 0.015, free T4 2.07, free t3 4.7, and Tegretol level toxic at 14.7. 07/21/2021 Patient seen and examined emergency department, resting comfortably in bed in no acute signs of distress. She states she woke up around 7:30 AM walked 10-12 feet, then sudden onset of weakness with collapse onto the floor. She denies head and neck or back pain, loss of bowel or bladder. Patient denies any diz ziness, palpitations, chest pain, tingling, numbness sensation prior to weakness event with fall. Patient currently in no acute signs of distress in the emergency department. Patient passed swallow screen by emergency department nurse, will order diet. Awaiting recommendations from neurology. Review of Systems Constitutional: Reports as per HPI Ears, nose, mouth and throat: Reports as per HPI Cardiovascular: Reports as per HPI Respiratory: Reports as per HPI Gastrointestinal: Reports as per HPI Genitourinary: Reports as per HPI Menstruation: Reports as per HPI Musculoskeletal: Reports as per HPI Integumentary: Reports as per HPI Neurological: Reports as per HPI Psychiatric: Reports as per HPI Endocrine: Reports as per HPI Hematologic/Lymphatic: Reports as per HPI Allergic/Immunologic: Reports as per HPI Past Medical History Past Medical History: Coronary Artery Disease (CAD), Heart Failure, CVA/TIA, Eye Disorder, Pneumonia, Pulmonary Embolus (PE), Seizure Disorder, Skin Disorder Additional Past Medical History / Comment(s): Last seizure 2009, CVA 2007 with L sided weakness arm and leg and has L foot drop, TIA 2019, cardiomyopathy, R PE and pneumothorax/pneumonia following leg fracture in 1994, gestational diabetes with all pregnancies (4), bilateral glaucoma with surgery, psoriasis in the past, UTIs. History of Any Multi-Drug Resistant Organisms: None Reported Past Surgical History: Pacemaker Additional Past Surgical History / Comment(s): Bilateral eye surgery for g [place] Past Anesthesia/Blood Transfusion Reactions: No Reported Reaction Type of Cardiac Device: Permanent Pacemaker Device Placement Date:: 2012 Past Psychological History: Anxiety, Depression Smoking Status: Current every day smoker Past Alcohol Use History: Occasional Past Drug Use History: None Reported - Past Family History Father Family Medical History: Coronary Artery Disease (CAD), Myocardial Infarction (PR) Additional Family Medical History / Comment(s): Father is 75 yrs old. He had a silent PR. Mother Additional Family Medical History / Comment(s): Mother is at 32 yrs d/t cardiomyopathy Medications and Allergies Home Medications and Allergies Comment(s): Medications and ALLERGIES reviewed Home Medications Medication Instructions Recorded Confirmed Type Atorvastatin Calcium [Lipitor] 80 mg PO HS 03/08/14 07/21/21 History levETIRAcetam [Keppra] 1,500 mg PO BID 03/22/17 07/21/21 History Gabapentin 600 mg PO TID 02/20/19 07/21/21 History Amiodarone [Cordarone] 200 mg PO DAILY 02/22/20 07/21/21 History carBAMazepine [TEGretol] 200 mg PO TID 02/22/20 07/21/21 History Apixaban [Eliquis] 5 mg PO BID 07/21/21 07/21/21 History Spironolactone [Aldactone] 25 mg PO DAILY 07/21/21 07/21/21 History Allergies Allergy/AdvReac Type Severity Reaction Status Date / Time cephalexin monohydrate Allergy Rash/Hives Verified 07/21/21 10:38 [From Keflex] Penicillins Allergy Anaphylaxis Verified 07/21/21 10:38 Physical Exam Vitals: Vital Signs Temp Pulse Resp BP Pulse Ox 07/21/21 17:12 63 18 100/60 100 07/21/21 12:27 98.1 F 58 L 18 122/69 99 07/21/21 10:30 97.5 F L 72 18 137/74 97 Intake and Output 11/23/21 11/23/21 11/23/21 06:59 14:59 22:59 Other: Weight 57.153 kg - Constitutional General appearance: cooperative - EENT Eyes: EOMI, PERRLA, normal appearance ENT: normal oropharynx Ears: bilateral: normal - Neck Carotids: bilateral: upstroke normal - Respiratory Respiratory: bilateral: CTA (Anterior and posterior lung shetty) - Cardiovascular Heart rate: 74 Rhythm: regular Heart sounds: normal: S1, S2 radial pulse Peripheral Pulses: bilateral: Normal dorsalis pedis Peripheral Pulses: bilateral: Normal - Gastrointestinal General gastrointestinal: normal bowel sounds, soft - Neurologic (Left facial droop, left arm drift, left leg drift from previous CVA - Musculoskeletal Musculoskeletal: left sided weakness - Psychiatric Psychiatric: A&O x's 3 Results CBC & Chem 7: 07/21/21 11:21 07/21/21 11:21 Labs: Abnormal Lab Results - Last 24 Hours (Table) 07/21/21 07/21/21 07/21/21 Range/Units 10:56 11:21 11:21 Sodium 136 L (137-145) mmol/L BUN 19 H (7-17) mg/dL Glucose 101 H (74-99) mg/dL POC Glucose (mg/dL) 101 H (75-99) mg/dL TSH <0.015 L (0.465-4.680) mIU/L Chest x-ray: report reviewed CT Scan - head: report reviewed Thrombosis Risk Factor Assmnt - Choose All That Apply Any of the Below Risk Factors Present?: Yes Each Factor Represents 1 point: Age 41-60 years Each Risk Factor Represents 3 Points: History of DVT/PE Thrombosis Risk Factor Assessment Total Risk Factor Score: 4 Thrombosis Risk Factor Assessment Level: Moderate Risk Assessment and Plan Assessment: Rule out TIA Fall Coronary artery disease Permanent pacemaker History of heart failure History of CVA in 2008 with left-sided weakness to arm leg, with left-sided foot drop TIA in 2019 Epilepsy History of pulmonary embolus Cardiomyopathy History of pneumonia Nicotine dependence Full code Plan: TIA/CVA: continue to monitor neuro status, consultation with neurology for recommendations and expert opinion; hold Tegretol level at this time 14.7 Possible epileptic even: seizure precautions in place continue consultation with neurology for recommendations and expert opinion Continue medical management Continue to monitor vital signs and diagnostic testing Further recommendations to come based on patient's clinical condition Time with Patient: Greater than 30
[2021-07-21] MEDS ORDERED: ATORVASTATIN 80 MG TAB PO SCH (21:00)
[2021-07-21] MEDS: GABAPENTIN 300 MG CAP PO SCH (21:41)
[2021-07-21] MEDS: MAGNESIUM SULFATE-D5W PMX 1 GM in DEXTROSE/WATER 1 100ML.BAG IVPB SCH ×2 (21:41→22:45)
[2021-07-21] MEDS: APIXABAN 5 MG TAB PO SCH (21:42)
[2021-07-22 05:09] LABS: Magnesium 2.2 mg/dL (1.6-2.3)
[2021-07-22] MEDS: GABAPENTIN 300 MG CAP PO SCH (07:24)
[2021-07-22] MEDS: APIXABAN 5 MG TAB PO SCH (07:24)
[2021-07-22] MEDS: SODIUM CHLORIDE 0.9% 1,000 ML IV SCH (07:25)
--- NOTE | 2021-07-22 07:37 | P.PN ---
Subjective Progress Note Date: 07/22/21 Principal diagnosis: Transient ischemic attack/CVA Weakness Fall Elevated Tegretol level 51-year-old female with significant medical history of coronary artery disease, heart failure, history of CVA with left-sided residual deficits, epilepsy, pulmonary embolisms, cardiomyopathy, hyperthyroidism, mixed anxiety and depression, and several additional comorbidities is admitted to the hospital for rule out transient ischemic attack. Patient had extensive diagnostic workup in the emergency department consisting of CT of the brain without contrast, impression there is significant right-sided encephalomalacia and small old left frontal lobe infarct, no changes from previous CT of the head without contrast. Chest x-ray on a consistent with cardiomegaly. A lead EKG normal sinus rhythm, no ST depression elevation or T-wave inversion noted from previous EKG. CBC pe rformed in the emergency Department unremarkable, CMP preformed emergency Department unremarkable. Additional labs TSH consistently less than 0.015, free T4 2.07, free t3 4.7, and Tegretol level toxic at 14.7. 07/21/2021 Patient seen and examined emergency department, resting comfortably in bed in no acute signs of distress. She states she woke up around 7:30 AM walked 10-12 feet, then sudden onset of weakness with collapse onto the floor. She denies head and neck or back pain, loss of bowel or bladder. Patient denies any dizziness, palpitations, chest pain, tingling, numbness sensation prior to weakness event with fall. Patient currently in no acute signs of distress in the emergency department. Patient passed swallow screen by emergency department nurse, will order diet. Awaiting recommendations from neurology. 07/22/2021 Patient seen and examined at bedside, resting comfortably in bed with no acute signs of distress. Patient states she is able to walk at baseline, coordination of events at baseline and no complaints at this time. Patient informed to follow-up with endocrinology regarding hyperthyroidism. Holding Tegretol for 2 days due to level XIV.7. Vitamin D level low and vitamin D 5000 units daily. Awaiting on recommendations from neurology. Patient no acute signs of distress Objective - Vital Signs Vital signs: Vital Signs Temp 98 F 07/22/21 02:00 Pulse 71 07/22/21 02:00 Resp 16 07/22/21 02:00 BP 111/65 07/22/21 02:00 Pulse Ox 97 07/22/21 02:00 Intake & Output 07/21/21 07/22/21 07/22/21 18:59 06:59 18:59 Weight 57.153 kg Other: # Voids 2 - Constitutional General appearance: Present: cooperative - EENT Eyes: Present: EOMI, PERRLA ENT: Present: hard of hearing Ears: bilateral: normal - Neck Neck: Present: normal ROM Carotids: bilateral: upstroke normal - Respiratory Respiratory: bilateral: CTA (Anterior and posterior lung shetty) - Cardiovascular Heart rate: 74 Rhythm: regular Heart sounds: normal: S1, S2 - Peripheral pulses dorsalis pedis Peripheral Pulses: bilateral: Normal radial pulse Peripheral Pulses: bilateral: Normal - Gastrointestinal General gastrointestinal: Present: normal bowel sounds, soft - Integumentary Integumentary: Present: normal - Neurologic Neurologic Comment(s): (Left facial droop, left arm drift, left leg drift from previous CVA - Musculoskeletal Musculoskeletal: Present: left sided weakness - Psychiatric Psychiatric: Present: A&O x's 3 - Allied health notes Allied health notes reviewed: nursing - Labs CBC & Chem 7: 07/21/21 11:21 07/21/21 11:21 Labs: Abnormal Lab Results - Last 24 Hours (Table) 07/21/21 07/21/21 07/21/21 Range/Units 10:56 11:21 11:21 Sodium 136 L (137-145) mmol/L BUN 19 H (7-17) mg/dL Glucose 101 H (74-99) mg/dL POC Glucose (mg/dL) 101 H (75-99) mg/dL Vitamin B12 1199.0 H (200.0-944.0) pg/mL Vitamin D 25-Hydroxy 13.2 L (30.0-100.0) ng/mL TSH <0.015 L (0.465-4.680) mIU/L Assessment and Plan Assessment: Rule out TIA Low vitamin D level Elevated Tegretol level Fall Coronary artery disease Permanent pacemaker History of heart failure History of CVA in 2007 with left-sided weakness to arm leg, with left-sided foot drop TIA in 2019 Epilepsy History of pulmonary embolus Cardiomyopathy History of pneumonia Nicotine dependence Full code Plan: TIA/CVA: continue to monitor neuro status, consultation with neurology for recom mendations and expert opinion; hold Tegretol level at this time 14.7 Possible epileptic even: seizure precautions in place continue consultation with neurology for recommendations and expert opinion Low vitamin D level supplement 5000 units daily recheck a primary care in 4-6 weeks Continue medical management Continue to monitor vital signs and diagnostic testing Further recommendations to come based on patient's clinical condition Hopeful discharge today after neurology clearance Time with Patient: Greater than 30
[2021-07-22 08:33] VITALS: BP 104/69; PULSE 66; RESP 18; TEMP 97.8
[2021-07-22] MEDS ORDERED: carBAMazepine 200 MG TAB PO SCH (09:00)
[2021-07-22] MEDS ORDERED: ASPIRIN 325 MG TAB PO SCH (09:00)
[2021-07-22] MEDS ORDERED: AMIODARONE 200 MG TAB PO SCH (09:00)
[2021-07-22] MEDS ORDERED: SPIRONOLACTONE 25 MG TAB PO SCH (09:00)
[2021-07-22] MEDS ORDERED: CHOLECALCIFEROL 125 MCG (5000 IU) TABLET PO SCH (09:00)
--- NOTE | 2021-07-22 09:42 | P.CNNES ---
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 Patient stated that the she woke up at the 7:30 AM on 07/21/2021 and she noticed that her left side was weaker than baseline and her last normal was about 11 PM on 07/20/2021. She felt like she was walking wobbly and the which was walk-in she fell but she does not lose any consciousness. She denies of any jerk in of any extremities, any tongue bite or soreness or any urinary bowel incontinence. She feels she is back to baseline. She denies of any headache. She said her last seizure was in 2009. Patient stated that she follows up with her neurologist (Dr. Roberts) as outpatient. According to the patient's she stated that the her neurologist is the one that started her on Eliquis. She denies that she has any A. fib or atrial flutter but states it was for her history of pulmonary embolism and cardiomyopathy. She is on home medication of Eliquis 5 mg 1 tablet twice a day, Lipitor 80 mg daily at bedtime, Keppra 1501 tablet twice a day, Tegretol 200 mg a tablet 3 times a day, gabapentin 600 mg 1 tablet 3 times a day, amiodarone 200 mg daily spironolactone. She stated that she is also on aspirin 81 mg daily. Patient was seen by neuro hospitalist in our facility and was last seen by Dr. Bustos on 10/24/2020 for ataxia and it seems that the ataxia has resolved. Patient has stroke workup and it is mentioned that the patient is the at the follow-up with neuro intervention for her as cerebral aneurysm which the was reported as appears stable. Regarding the seizures it is documented per Dr. Chua it was in remission for 10 yearas. And it is documented that the patient is on multiple antiepileptic a high dose. Dr. Bustos recommended to decrease the of Tegretol since the levels are very borderline or possible toxic. The patient did not want to adjust her medication. She had an EEG during that admission is reported as continuous focal slowing and dysrhythmic delta and theta activity involving the right frontal temporal head region. There is suggestive of focal cortical neuronal dysfunction and may suggest underlying structural abnormality. No epileptiform activity was seen. Please refer to Dr. Chua's note for further details. Some of the workup in the hospital consisted of: Initial vital signs his blood pressure of 137/74, heart rate of 72, respiratory of 18, temperature of 97.5 Fahrenheit oral pulse ox of 97% on room air. CBC with differential is unremarkable Chemistry panel is sodium is 136, creatinine 0.58, serum glucose is 101, calcium is 8.7, magnesium is 1.9, AST of 34, ALT of 22. TSH is less than 0.015 but the free T4 is a 2.07 Vitamin B12 is 1199 and the serum folate is 10. Keppra level is 42.7 and the carbamazepine level is 14.7 and both are therapeutic. CT of the head is reported as no acute intracranial hemorrhage or midline shift. There is significant right sided encephalomalacia and small old left frontal lobe infarct we demonstrate. No significant change from most recent CT. I personally reviewed the CT of the head and I agree the patient has significant right supplementation over the right hemisphere as well as the left frontal region. There is no intraparenchymal hemorrhages as appreciated. Review of Systems Review of system: The 12 point system was reviewed and apparent positive and negative per HPI. Past Medical History Past Medical History: Coronary Artery Disease (CAD), Heart Failure, CVA/TIA, Eye Disorder, Pneumonia, Pulmonary Embolus (PE), Seizure Disorder, Skin Disorder Additional Past Medical History / Comment(s): Last seizure 2009, CVA 2007 with L sided weakness arm and leg and has L foot drop, TIA 2019, cardiomyopathy, R PE and pneumothorax/pneumonia following leg fracture in 1994, gestational diabetes with all pregnancies (4), bilateral glaucoma with surgery, psoriasis in the past, UTIs. History of Any Multi-Drug Resistant Organisms: None Reported Past Surgical History: Pacemaker Additional Past Surgical History / Comment(s): Bilateral eye surgery for glaucoma Past Anesthesia/Blood Transfusion Reactions: No Reported Reaction Type of Cardiac Device: Permanent Pacemaker Device Placement Date:: 2012 Past Psychological History: Anxiety, Depression Smoking Status: Current every day smoker Past Alcohol Use History: Occasional Past Drug Use History: None Reported - Past Family History Father Family Medical History: Coronary Artery Disease (CAD), Myocardial Infarction (HI) Additional Family Medical History / Comment(s): Father is 75 yrs old. He had a silent HI. Mother Additional Family Medical History / Comment(s): Mother is at 32 yrs d/t cardiomyopathy Medications and Allergies Home Medications Medication Instructions Recorded Confirmed Type Atorvastatin Calcium [Lipitor] 80 mg PO HS 03/08/14 07/21/21 History levETIRAcetam [Keppra] 1,500 mg PO BID 03/22/17 07/21/21 History Gabapentin 600 mg PO TID 02/20/19 07/21/21 History Amiodarone [Cordarone] 200 mg PO DAILY 02/22/20 07/21/21 History carBAMazepine [TEGretol] 200 mg PO TID 02/22/20 07/21/21 History Apixaban [Eliquis] 5 mg PO BID 07/21/21 07/21/21 History Spironolactone [Aldactone] 25 mg PO DAILY 07/21/21 07/21/21 History Cholecalciferol [Vitamin D3 (125 125 mcg PO DAILY #30 tablet 07/22/21 Rx Mcg = 5000 Iu)] Allergies Allergy/AdvReac Type Severity Reaction Status Date / Time cephalexin monohydrate Allergy Rash/Hives Verified 07/21/21 10:38 [From Keflex] Penicillins Allergy Anaphylaxis Verified 07/21/21 10:38 Physical Examination - Vital Signs Vital Signs: Vital Signs Temp Pulse Pulse Resp BP BP Pulse Ox 07/22/21 02:00 98 F 71 16 111/65 97 07/21/21 21:23 98 07/21/21 20:28 98.4 F 65 18 111/58 97 07/21/21 20:00 98.4 F 65 18 111/58 97 07/21/21 17:12 63 18 100/60 100 07/21/21 12:27 98.1 F 58 L 18 122/69 99 07/21/21 10:30 97.5 F L 72 18 137/74 97 Intake and Output 07/21/21 07/22/21 07/22/21 22:59 06:59 14:59 Other: # Voids 2 2 GENERAL: The patient is lying in bed and is not in acute distress. CHEST: The heart rate is regular rate rhythm. No murmurs to auscultation. No carotid bruit bilaterally. LUNG: Clear to auscultation bilaterally no wheezing noted throughout. Not labored breathing. ABDOMEN/GI: Bowel sounds present in all 4 quadrants. No tenderness to palpation throughout. NEUROLOGICAL: Higher mental function: The patient is awake, alert, oriented to self, place and time. Patient is following commands. No aphasia and no neglect. Cranial nerves: The pupils are round, equal and reactive to light and accommodation. Visual shetty are full to confrontation throughout. Extraocular movement is intact no nystagmus is noted. Facial sensation is normal to touch throughout. The facial strength is mild left lower facial weakness. Hearing is normal bilaterally to hand rub. Tongue is midline and moved [id number] without any difficulty. No dysarthria is noted. Shoulder shrug is normal bilaterally. Motor: Gait is deferred. The strength is left upper extremity is able to raise above gravity and seems 4- with increase tone over left hand/wrist region (old). Left hand application development liaison is 5-. Left lower extremity is 4+ to 5-. Otherwise right side is 5/5. Some atrophy in left upper extremity. Cerebellum: Normal finger to nose over the right but could not before left because of increase tone. Sensation: Sensation is decreased over the left forearm (per patient chronic). Otherwise normal to touch throughout. Reflexes (right/left):3+ over the entire left side. Otherwise 2+ throughout. Plantars is upgoing over the left and mute over the right. Results - Laboratory Findings CBC and BMP: 07/21/21 11:21 07/21/21 11:21 Abnormal Lab Findings: Abnormal Labs 07/21/21 07/21/21 07/21/21 10:56 11: 11:21 Sodium 136 L BUN 19 H Glucose 101 H POC Glucose (mg/dL) 101 H Vitamin B12 1199.0 H Vitamin D 25-Hydroxy 13.2 L TSH <0.015 L Assessment and Plan Assessment: Worsening of left sided weakness with fall (without loss of consciousness or any seizure-like activity): Seems likely due to TIA Multiple stroke with residual left-sided weakness on Eliquis 4 mm saccular aneurysm involving supraclinoid right ICA prior to the carotid terminus History of seizures as in remission (last seizure was in 2009 according to patient) History of pulmonary embolism on eliquis Cardiomyopathy s/p pacemaker on eliquis (according to patient was started by her Senior Software Development Manager) Chair coronary artery disease Alcohol use Plan: The ED the patient was given aspirin 325 once then was started on her home dose of Eliquis 5 mg 1 tablet twice a day in addition to the aspirin 325mg daily. Patient is continued on her home dose of Lipitor 80 mg daily at bedtime for her secondary stroke prophylaxis. I ordered CT angiography of the head and neck as well as a repeat CT of head to see if there is any change compared to yesterday's. Cannot get MRI of the brain since the patient has a pacemaker Lipid panel is ordered and is pending Ordered 2D echo Continue neuro checks Placed on cardiac monitoring PT, OT and PUBLIC WELFARE DIRECTOR are consulted Patient is continuing her home the medication of Keppra 1500 mg 1 tablet twice a day and Tegretol 200mg 1 tab tid. Feel the patient is on a very high dose of Tegretol and recommended that medication to be modified as an outpatient with her neurologist. We'll defer the rest of the medical management to primary team Upon discharge the patient needs to follow-up with her neurologist (Dr. Sanders) within 1-2 weeks. For DVT prophylaxis patient is on Eliquis Thank your for the consultation. Patient stated he likes to go home today. I notified the nurse, if workup is negative and patient is clear from a neurological perspective and would be clear today. Phuc Serrano M.D. Neuro-hospitalist Time with Patient: Greater than 30
--- NOTE | 2021-07-22 11:28 | ECHOF ---
Referral Reason:left sided weakness MEASUREMENTS -------- HEIGHT: 167.6 cm WEIGHT: 57.2 kg BP: IVSd: 0.9 cm (0.6 - 1.1) LVIDd: 4.4 cm (3.9 - 5.3) LVPWd: 1.2 cm (0.6 - 1.1) IVSs: 1.3 cm LVIDs: 3.5 cm LVPWs: 1.9 cm LAESV Index (A-L): 27.58 ml/m Ao Diam: 3.6 cm (2.0 - 3.7) AV Cusp: 2.4 cm (1.5 - 2.6) LA Diam: 2.4 cm (2.7 - 3.8) MV EXCURSION: 18.048 mm (> 18.000) MV EF SLOPE: 113 mm/s (70 - 150) EPSS: 3.1 cm MV E Eusebio: 0.62 m/s MV DecT: 208 ms MV A Eusebio: 0.48 m/s MV E/A Ratio: 1.29 AR PHT: 303 ms RAP: 5.00 mmHg RVSP: 24.18 mmHg FINDINGS -------- AICD This was a technically adequate study. The left ventricular size is normal. Left ventricular wall thickness is normal. Overall left vent ricular systolic function is moderately impaired with, an EF between 35 - 40 %. 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 Clinical correlation r ecommended and may consider cardiac MRI if clinically indicated. The right ventricle is normal in size. The left atrial size is normal. Normal LA size by volume 22+/-6 ml/m2. The right atrial size is normal. The aortic valve is trileaflet and appears structurally normal. Trace amount of aortic regurgitatio n. The mitral valve is normal. The mitral valve leaflets are mildly thickened. Mild mitral regurgita tion is present. The tricuspid valve appears structurally normal. Mild tricuspid regurgitation present. Right vent ricular systolic pressure is normal at < 35 mmHg. There is no pulmonic regurgitation present. The aortic root size is normal. Normal inferior vena cava with normal inspiratory collapse consistent with estimated right atrial pre ssure of 5 mmHg. There is no pericardial effusion. CONCLUSIONS -------- 1. AICD 2. The left ventricular size is normal. 3. Left ventricular wall thickness is normal. 4. Overall left ventricular systolic function is moderately impaired with, an EF between 35 - 40 %. 5. 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 Clinical correlation recommended and may consider cardiac MRI if clinically indicated. 6. Trace amount of aortic regurgitation. 7. The mitral valve leaflets are mildly thickened. 8. Mild mitral regurgitation is present. 9. Mild tricuspid regurgitation present. 10. There is no pericardial effusion. FILTER CHANGER: Tori England RDCS
--- NOTE | 2021-07-22 11:34 | CT ---
EXAMINATION TYPE: CT brain wo con DATE OF EXAM: 07/22/2021 COMPARISON: 07/21/2021 HISTORY: TIA CT DLP: 1140.[address] of the brain was performed. Large area of remote insult involving the right MCA territory with encephalomalacia noted. Also remot e insult right occipital lobe and left frontal lobe. Extra-axial dilatation right lateral ventricle. There is no evidence for intracranial hemorrhage or sulcal effacement. There is decreased attenuation about the periventricular white matter and deep white matter of both c erebral hemispheres, compatible with chronic small vessel ischemia. Differential diagnosis does inclu de demyelination. No mass effects are seen.No midline shift. Osseous calvarium is intact. If symptoms persist consider MRI. IMPRESSION: 1. No acute intracranial process identified at this time.
--- NOTE | 2021-07-22 12:09 | CT ---
EXAMINATION TYPE: CT angio head neck DATE OF EXAM: 07/22/2021 HISTORY: TIA COMPARISON: CT brain 07/22/2021, prior CT angiogram the head and neck 10/21/2020 CT DLP: 375.4 mGycm. Automated Exposure Control for Dose Reduction was Utilized. TECHNIQUE: CTA scan of the neck and brain is performed with IV Contrast, patient injected with 65 mL of Isovue 370, axial images are obtained, coronal and sagittal reformatted images are reviewed. 3D r econstructed images are created on an independent workstation and reviewed. FINDINGS: Carotid/Vascular Structures: Stable, no significant internal carotid artery stenosis . The common car otid, internal and external carotid arteries are patent, 3 super aortic branch vessels are present. V ertebral arteries are codominant. Left and right subclavian arteries are patent. Anterior posterior circulation patent, no evident dissection, embolus, stenosis, or change in right s upraclinoid saccular aneurysm. A1 segment on the left is somewhat atrophic. There are cerebral vascul ar calcifications noted along the cavernous portion of the internal carotid arteries. Other: There is encephalomalacia due to prior infarcts again noted IMPRESSION: No significant interval change is seen. NASCET criteria was used in interpretation of this exam?
--- NOTE | 2021-07-22 12:34 | P.DS ---
Providers Date of admission: 07/21/21 13:27 Expected date of discharge: 07/22/21 Attending physician: Garth Auguste Consults: 07/21/21 13:28 Consult Physician Routine Consulting Provider: Phuc Serrano Consult Reason/Comments: CVA Do you want consulting provider notified?: Yes Primary care physician: Garth Auguste Hospital Course: 51-year-old female with significant medical history of coronary artery disease, heart failure, history of CVA with left-sided residual deficits, epilepsy, pulmonary embolisms, cardiomyopathy, hyperthyroidism, mixed anxiety and depression, and several additional comorbidities is admitted to the hospital for rule out transient ischemic attack. Patient had extensive diagnostic workup in the emergency department consisting of CT of the brain without contrast, impression there is significant right-sided encephalomalacia and small old left frontal lobe infarct, no changes from previous CT of the head without contrast. Chest x-ray on a consistent with cardiomegaly. A lead EKG normal sinus rhythm, no ST depression elevation or T-wave inversion noted from previous EKG. CBC performed in the emergency Department unremarkable, CMP preformed emergency Department unremarkable. Additional labs TSH consistently less than 0.015, free T4 2.07, free t3 4.7, and Tegretol level toxic at 14.7. 07/21/2021 Patient seen and examined emergency department, resting comfortably in bed in no acute signs of distress. She states she woke up around 7:30 AM walked 10-12 feet, then sudden onset of weakness with collapse onto the floor. She denies head and neck or back pain, loss of bowel or bladder. Patient denies any dizziness, palpitations, chest pain, tingling, numbness sensation prior to weakness event with fall. Patient currently in no acute signs of distress in the emergency department. Patient passed swallow screen by emergency department nurse, will order diet. Awaiting recommendations from neurology. 07/22/2021 Patient seen and examined at bedside, resting comfortably in bed with no acute signs of distress. Patient states she is able to walk at baseline, coordination of events at baseline and no complaints at this time. Patient informed to follow-up with endocrinology regarding hyperthyroidism. Holding Tegretol for 2 days due to level XIV.7. Vitamin D level low and vitamin D 5000 units daily. Patient had echocardiogram performed today with an ejection fraction of 35-40% at baseline for patient's cardiomegaly Patient had CT of the head without contrast no acute changes from previous CT of the brain yesterday Patient has CTA of the head angiogram no acute changes Patient tolerated hospital stay well no acute neuro deficits noted upon discharge, will be discharged in in a stable condition with a guarded prognosis due to multiple comorbidities Assessment: Rule out TIA Low vitamin D level Elevated Tegretol level Fall Coronary artery disease Permanent pacemaker History of heart failure History of CVA in 2007 with left-sided weakness to arm leg, with left-sided foot drop TIA in 2019 Epilepsy History of pulmonary embolus Cardiomyopathy History of pneumonia Nicotine dependence Full code Final diagnosis Transient ischemic attack, continue aspirin therapy with Eliquis and high intensity statin therapy follow-up with neurology within 1 week Elevated Tegretol level follow-up with neurology on outpatient basis for adjustment of medication dosage Hyperthyroidism follow-up with endocrinology on outpatient basis for treatment plan Health Concerns: Multiple comorbidities Complexity of medical treatment plan Pertinent Studies: CT of the head with and without contrast, see dictation from radiologist Echocardiogram see dictation from stock counter Chest x-ray no acute pulmonary processes noted Procedures: No procedures performed during hospital stay Patient Condition at Discharge: Stable Plan - Discharge Summary Discharge Rx Participant: Yes New Discharge Prescriptions: New Cholecalciferol [Vitamin D3 (125 Mcg = 5000 Iu)] 125 mcg PO DAILY #30 tablet Continue Atorvastatin Calcium [Lipitor] 80 mg PO HS levETIRAcetam [Keppra] 1,500 mg PO BID Gabapentin 600 mg PO TID carBAMazepine [TEGretol] 200 mg PO TID Amiodarone [Cordarone] 200 mg PO DAILY Apixaban [Eliquis] 5 mg PO BID Spironolactone [Aldactone] 25 mg PO DAILY Discharge Medication List Atorvastatin Calcium [Lipitor] 80 mg PO HS 03/08/14 [History] levETIRAcetam [Keppra] 1,500 mg PO BID 03/22/17 [History] Gabapentin 600 mg PO TID 02/20/19 [History] Amiodarone [Cordarone] 200 mg PO DAILY 02/22/20 [History] carBAMazepine [TEGretol] 200 mg PO TID 02/22/20 [History] Apixaban [Eliquis] 5 mg PO BID 07/21/21 [History] Spironolactone [Aldactone] 25 mg PO DAILY 07/21/21 [History] Cholecalciferol [Vitamin D3 (125 Mcg = 5000 Iu)] 125 mcg PO DAILY #30 tablet 07/22/21 [Rx] Follow up Appointment(s)/Referral(s): Garth Auguste MD [Primary Care Provider] - 1-2 days Patient Instructions/Handouts: Transient Ischemic Attack (DC), Hyperthyroidism (DC), Epilepsy (DC), Weakness (DC), Fall Prevention (DC) Activity/Diet/Wound Care/Special Instructions: Needed follow-up with neurology within 1 week Needed follow-up with endocrinology within 1 week Discharge Disposition: HOME WITH HOME HEALTH SERVICES
[2021-07-23 09:06] LABS: Chol/HDL Ratio 3.12 Ratio; LDL Cholesterol,Calculated 87.5 mg/dL (0.0-131.0)
== END 2021-07-22 13:10 | disposition home health service (06) ==
LOC: EC 10:22 → 6NMEDSUR 13:27 → 1SOBS 19:36
PROVIDERS: ADMIT Family Medicine; ATTEND Family Medicine
DX: G45.9 Transient cerebral ischemic attack, unspecified (principal); R89.2 Abnormal level of other drugs, medicaments and biological substances in specimens from other organs, systems and tissues; T42.1X5A Adverse effect of iminostilbenes, initial encounter; E05.90 Thyrotoxicosis, unspecified without thyrotoxic crisis or storm; I25.10 Atherosclerotic heart disease of native coronary artery without angina pectoris; I50.9 Heart failure, unspecified; G40.909 Epilepsy, unspecified, not intractable, without status epilepticus; I42.9 Cardiomyopathy, unspecified; I69.354 Hemiplegia and hemiparesis following cerebral infarction affecting left non-dominant side; I72.5 Aneurysm of other precerebral arteries; I08.1 Rheumatic disorders of both mitral and tricuspid valves; I44.7 Left bundle-branch block, unspecified; F41.8 Other specified anxiety disorders; G93.89 Other specified disorders of brain; E55.9 Vitamin D deficiency, unspecified; F17.200 Nicotine dependence, unspecified, uncomplicated; H91.90 Unspecified hearing loss, unspecified ear; L40.9 Psoriasis, unspecified; H40.9 Unspecified glaucoma; I69.392 Facial weakness following cerebral infarction; M21.372 Foot drop, left foot; Z86.711 Personal history of pulmonary embolism; Z86.32 Personal history of gestational diabetes; Z87.440 Personal history of urinary (tract) infections; Z86.718 Personal history of other venous thrombosis and embolism; Z87.01 Personal history of pneumonia (recurrent); Z95.0 Presence of cardiac pacemaker; W19.XXXA Unspecified fall, initial encounter; Z79.899 Other long term (current) drug therapy; Z79.01 Long term (current) use of anticoagulants; Z79.82 Long term (current) use of aspirin; Z88.0 Allergy status to penicillin; Z88.1 Allergy status to other antibiotic agents; Z82.49 Family history of ischemic heart disease and other diseases of the circulatory system
CPT/HCPCS: 96365; 96366; 96361; 99285; 36415; 94760; 93005; 93306; 97161; 97165; 84439; 80156; 84481; 80061; 80053; 80177; 82607; 82746; 83735 ×2; 84443; 84484; 85025; 85610; 85730; 82306; 71046; 70496; 70450 ×2; 70498; G0378 ×3; J3475; Q9967

== ENCOUNTER 2021-09-10 11:10 | Inpatient (IN) | payer MEDICARE, OTHER ==
[2021-09-10] MEDS ORDERED: LORazepam 2 MG/ML INJ IV STA ×2 (11:28→11:33)
[2021-09-10 11:29] LABS: Glucose,Whole Blood 132 mg/dL (75-99)
[2021-09-10] MEDS ORDERED: SODIUM CHLORIDE 0.9% IVPB ONE (11:29)
[2021-09-10] MEDS ORDERED: LEVETIRACETAM IVPB ONE (11:29)
[2021-09-10] MEDS ORDERED: SODIUM CHLORIDE 0.9% 1,000 ML IV ONE (11:35)
[2021-09-10] MEDS ORDERED: ONDANSETRON 4 MG/2 ML VIAL IVP STA (11:38)
[2021-09-10 11:50] LABS: Basophils # (A) 0.1 k/uL (0-0.2); Basophils % (A) 1 %; Eosinophils % (A) 0 %; HCT 51.8 % (34.0-46.0); Hypochromasia Slight; Lymphocytes # (A) 0.6 k/uL (1.0-4.8); Lymphocytes % (A) 6 %; MCHC 31.5 g/dL (31.0-37.0); Macrocytosis Slight; Mean Platelet Volume 10.3; Monocytes # (A) 0.3 k/uL (0-1.0); Monocytes % (A) 3 %; Neutrophils # (A) 9.4 k/uL (1.3-7.7); Neutrophils % (A) 90 %; Platelet Count 197 k/uL (150-450); RBC 5.09 m/uL (3.80-5.40); RDW 13.2 % (11.5-15.5); WBC 10.5 k/uL (3.8-10.6)
[2021-09-10 11:59] LABS: HGB 16.3 gm/dL (11.4-16.0); MCV 101.8 fL (80.0-100.0)
[2021-09-10 12:03] LABS: African American GFR (CKD) 39 (>60 ml/min/1.73 sqM); Alcohol <10 mg/dL; Alkaline Phosphatase 59 U/L (38-126); Anion Gap 20 mmol/L; Blood Urea Nitrogen 63 mg/dL (7-17); Carbon Dioxide 28 mmol/L (22-30); Chloride 116 mmol/L (98-107); Glucose 159 mg/dL (74-99); Non-African American GFR(CKD) 34 (>60 ml/min/1.73 sqM); Potassium 3.6 mmol/L (3.5-5.1); Total Bilirubin 1.3 mg/dL (0.2-1.3); Total Protein 8.2 g/dL (6.3-8.2)
[2021-09-10 12:05] LABS: HCG,Qualitative Serum Not Detected
[2021-09-10] MEDS ORDERED: SODIUM CHLORIDE 0.9% 500 ML 500 ML IV ONE (12:12)
[2021-09-10 12:24] LABS: ALT 81 U/L (4-34); AST 202 U/L (14-36); Sodium 164 mmol/L (137-145)
[2021-09-10 12:27] LABS: Lactic Acid, Venous 4.6 mmol/L (0.7-2.0)
[2021-09-10 12:32] LABS: INR 1.7 (<1.2); Prothrombin Time 16.7 sec (9.0-12.0)
[2021-09-10] MEDS ORDERED: VANCOMYCIN IV PER PHARMACY 1 EACH MISC MISCELLANE PRN (12:32)
[2021-09-10] MEDS ORDERED: SODIUM CHLORIDE 0.9% 500 ML 500 ML IV STA (12:34)
--- NOTE | 2021-09-10 12:42 | CT ---
EXAMINATION TYPE: CT brain wo con DATE OF EXAM: 09/10/2021 COMPARISON: 07/22/2021 HISTORY: Altered mental status. History of stroke and seizure. CT DLP: 1194.4 mGycm Automated exposure control for dose reduction was used. FINDINGS: Artifact limits assessment for subtle hemorrhage particularly involving the posterior fossa and portions of the occipital lobes. Grossly no sizable intraparenchymal hemorrhage seen. There is degenerative change with a large area of low attenuation involving the right cerebral hemisp here compatible with encephalomalacia and previous infarct. Ventricular dilation similar to the prior exam with expected dilation of the right lateral nonspecific low attenuation in the white matter. Orbits are symmetric. Changes of chronic sinusitis are noted. Additional areas of attenuation the whi te matter are nonspecific but most typical remote white matter is asymmetric prominence of the cavern ous segment of the right ICA. Aneurysm in the differential diagnosis. IMPRESSION: 1. Limited exam due to artifact demonstrates no sizable intraparenchymal hemorrhage. Assessment for s ubtle hemorrhage is limited. 2. Degenerative and evidence of remote ischemic change. However there is a vague low-attenuation near the left thalamus and left cerebral peduncle. Acute ischemia in the differential diagnosis. Recommen d stat MRI brain with MRA [place] as clinically warranted. Attention to the right cavernous segment ICA is also ring are recommended as it appears to be asymmetrically dilated.
--- NOTE | 2021-09-10 12:48 | XR ---
EXAMINATION TYPE: XR chest 1V portable DATE OF EXAM: 09/10/2021 COMPARISON: 07/21/2021 HISTORY: Shortness of breath TECHNIQUE: Single frontal view of the chest is obtained. FINDINGS: There is a large area of consolidation involving the left perihilar and lower lobe. Small left pleural effusion. Right lung clear. Cardiac device seen in the heart size is at the upper limits of normal. Biapical pleural thickening. Arthropathy of the shoulders with diffuse osteopenia. IMPRESSION: Left perihilar and left lower lobe area of infiltrate and small effusion correlate for p neumonia.
[2021-09-10] MEDS ORDERED: AZTREONAM 2 GM in SODIUM CHLORIDE 0.9% 100 ML IVPB STA (12:50)
[2021-09-10] MEDS ORDERED: VANCOMYCIN 1,250 MG in SODIUM CHLORIDE 0.9% 250 ML IVPB ONE (13:15)
[2021-09-10] MEDS: DEXAMETHASONE SOD PHOSPHATE 10 MG/ML 1 ML VIAL IVP SCH ×2 (13:17→20:28)
[2021-09-10] MEDS ORDERED: HEPARIN SODIUM 1,000 UN/ML (10ML VL) IV PRN (14:01)
[2021-09-10] MEDS ORDERED: HEPARIN SODIUM 1,000 UN/ML (10ML VL) IV ONE (14:01)
[2021-09-10 14:13] LABS: Amphetamine Screen,Urine Not Detected (NotDetected); Appearance,Urine Turbid (Clear); Bacteria,Urine Moderate /hpf; Barbiturate Screen,Urine Not Detected (NotDetected); Benzodiazepines Screen,Urine Not Detected (NotDetected); Bilirubin,Urine Negative (Negative); Blood,Urine Large (Negative); Cocaine Screen,Urine Not Detected (NotDetected); Color,Urine Dark Brown; Glucose,Urine (UA) Trace (Negative); Granular Casts,Urine 48 /lpf (0); Ketones,Urine Negative (Negative); Leukocyte Esterase,Urine Moderate (Negative); Methadone Screen, Urine Not Detected (NotDetected); Mucus,Urine Moderate /hpf; Nitrite,Urine Negative (Negative); Opiate Screen,Urine Not Detected (NotDetected); Oxycodone Screen, Urine Not Detected (NotDetected); Phencyclidine Screen,Urine Not Detected (NotDetected); Protein,Urine 3+ (Negative); RBC,Urine >182 /hpf (0-5); Specific Gravity,Urine 1.026 (1.001-1.035); Squamous Epithelial Cell,Urine 24 /hpf (0-4); Tricyclic Antidepressant,Urine Not Detected (NotDetected); Urn Cannabinoid Scrn Not Detected (NotDetected); Urobilinogen,Urine <2.0 mg/dL (<2.0); WBC,Urine >182 /hpf (0-5)
[2021-09-10] MEDS ORDERED: HEPARIN SOD,PORK IN 0.45% NACL 25,000 UNIT in 0.45% NACL 1 250ML.BAG IV SCH (14:15)
[2021-09-10] MEDS ORDERED: NALOXONE 0.4 MG/ML 1 ML VIAL IV PRN (14:32)
[2021-09-10] MEDS ORDERED: DEXTROSE 5% IN WATER 1,000 ML IV ONE (14:38)
--- NOTE | 2021-09-10 15:32 | ED ---
General Adult HPI - General Chief complaint: Altered Mental Status Stated complaint: AMS Time Seen by Provider: 09/10/21 11:35 Source: patient, RN notes reviewed, old records reviewed Mode of arrival: ambulatory Limitations: altered mental status - History of Present Illness Initial comments: Patient is a 51-year-old female who is brought in by brother over concern for altered mental status. At baseline per her brother, patient does not take care of herself, is not abnormal to see her go the bathroom on herself, however she has been more tired and lethargic over the last day or so. He brought her to the emergency department for evaluation. There is concerning triage that she may be having a seizure, and had a fast heart rate. They brought her back for further evaluation. Upon evaluation, patient keeps asking for me to leave her alone. She is moaning. She refuses to open her eyes. She refuses to answer questions. She is moving all 4 extremities. No obvious neurological deficits at this time. Patient began having a mild focal seizure at bedside. Remainder the history is unremarkable. I spoke the patient's brother who is uncertain which medication she is on, but does endorse a history of seizures. She is also supposedly on a blood thinner. He states she did fall mist shower recently, however denies any known injuries. Upon searching a chart, she does appear to have an extensive cardiac history as well as a history of paroxysmal atrial fibrillation. This is likely why she is on chronic Elliquis. - Related Data Home Medications Medication Instructions Recorded Confirmed Atorvastatin Calcium [Lipitor] 80 mg PO HS 03/08/14 09/10/21 levETIRAcetam [Keppra] 1,500 mg PO BID 03/22/17 09/10/21 Gabapentin 600 mg PO TID 02/20/19 09/10/21 Amiodarone [Cordarone] 200 mg PO DAILY 02/22/20 09/10/21 carBAMazepine [TEGretol] 200 mg PO TID 02/22/20 09/10/21 Apixaban [Eliquis] 5 mg PO BID 07/21/21 09/10/21 Spironolactone [Aldactone] 25 mg PO DAILY 07/21/21 09/10/21 Previous Rx's Medication Instructions Recorded Cholecalciferol [Vitamin D3 (125 125 mcg PO DAILY #30 tablet 07/22/21 Mcg = 5000 Iu)] Allergies Allergy/AdvReac Type Severity Reaction Status Date / Time cephalexin monohydrate Allergy Rash/Hives Verified 09/10/21 11:26 [From Keflex] Penicillins Allergy Anaphylaxis Verified 09/10/21 11:26 Review of Systems ROS Statement: Those systems with pertinent positive or pertinent negative responses have been documented in the HPI. Difficult to obtain secondary to patient's current clinical status. ROS Other: All systems not noted in ROS Statement are negative. 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 History of Any Multi-Drug Resistant Organisms: None Reported Past Surgical History: Pacemaker Additional Past Surgical History / Comment(s): Bilateral eye surgery for glaucoma Past Anesthesia/Blood Transfusion Reactions: No Reported Reaction Type of Cardiac Device: Permanent Pacemaker Device Placement Date:: 2012 Past Psychological History: Anxiety, Depression Smoking Status: Current every day smoker Past Alcohol Use History: Occasional Past Drug Use History: None Reported - Past Family History Father Family Medical History: Coronary Artery Disease (CAD), Myocardial Infarction (NE) Additional Family Medical History / Comment(s): Father is 75 yrs old. He had a silent NE. Mother Additional Family Medical History / Comment(s): Mother is at 32 yrs d/t cardiomyopathy General Exam - General Exam Comments Initial Comments: General: An minimally unresponsive, but appears extremely dry and ill. She actively begins having a focal seizure of her left arm during exam. HEAD: Normal with no signs of head trauma. EYES: PERRLA, EOMI, conjunctiva normal, no discharge. Pupils are 2 mm and equal bilaterally. ENT: Hearing grossly intact, normal oropharynx. Extremely dry mucous membranes. RESPIRATORY: Patient was supposedly hypoxic in triage, so she was started on a nonrebreather. No obvious tachypnea at this time. C/V: Patient is tachycardic with a regular rhythm. S1 and S2 auscultated. Peripheral pulses 2+ and intact throughout. No peripheral edema. ABD: Abd is soft, nontender, nondistended. Patient is covered in stool. EXT: Normal range of motion, no obvious deformity SKIN: No rashes or lesions observed on exposed skin. NEURO: Alert but not oriented. Neurological exam is difficult to obtain at this time. GCS is currently 12,, as she does spontaneously open her eyes, localizes to pain, and speaks inappropriate words. She is moving all 4 extremity is. During exam, patient does have generalized tonic-clonic movements of the left upper extremity. It does appear she is actively seizing. Limitations: altered mental status Course Vital Signs 09/10/21 09/10/21 09/10/21 11:23 11:32 11:50 Temperature 101 F H Pulse Rate 154 H 147 H 137 H Respiratory 18 46 H 44 H Rate Blood Pressure 195/59 118/94 98/88 O2 Sat by Pulse 72 L 92 L 98 Oximetry 09/10/21 09/10/21 09/10/21 12:06 12:33 13:48 Temperature Pulse Rate 116 H 124 H 121 H Respiratory 40 H 40 H 30 H Rate Blood Pressure 114/83 110/77 118/74 O2 Sat by Pulse 98 97 96 Oximetry 09/10/21 15:00 Temperature Pulse Rate 109 H Respiratory 26 H Rate Blood Pressure 125/82 O2 Sat by Pulse 98 Oximetry Procedures - Sepsis Sepsis Focused Exam #1 Time Sepsis Criteria Met: 12:34 Sepsis Focused Exam Date: 09/10/21 Sepsis Focused Exam Time: 15:30 Sepsis Focused Exam Complete: Yes Vital Signs & RN Notes Reviewed: Yes Capillary Refill: > 2 Seconds: Fingers, Toes Peripheral Pulses: Normal: Radial (R), Radial (L) Skin Color: Normal for Patient Respiratory Exam: normal lung sounds Cardiovascular Exam: tachycardia Medical Decision Making - Medical Decision Making Based on the patient's presentation and physical exam, I was immediately con cerned for acute 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 A total of 6 of IV Ativan. Seizure activity stopped, however patient is now postictal and slightly lethargic secondary likely to the Ativan therapy. Broad workup will be obtained as well as CT brain. Patient's brothers in agreement this plan. We will obtain lactic acid, blood cultures infectious workup as well including COVID-19 swab. Vital signs remained stable at this time. We are able to wean the patient down to room air for a brief period of time. However she becomes mildly hypoxic and was restarted on nasal cannula at this time. She'll be given 2 L fluid bolus. EKG showed no signs of acute ischemia but did reveal atrial fibrillation with RVR. Chest x-ray revealed left perihilar and left lower lobe area of infiltrate and small effusion. Brain CT revealed degenerative in evidence of remote ischemic change. There is a finding that requires further evaluation, acute ischemia is on the differential. The recommended MRI and MRA of the brain for further evaluation. Laboratory studies are remarkable for what appears to be he moconcentration, as the patient has a hemoglobin 16.3. No leukocytosis. Mildly elevated PT and INR. Patient is hypernatremic to 164 and hyperchloremic to 116. She has a AK I with a BUN of 63 and creatinine of 1.74. Patient has an elevated lactic acid of 4.6, and troponin of 0.331. Urinalysis was concerning for acute infection as well versus contaminated catch. UDS is unremarkable. Covid is positive. At 1234, patient met criteria for sepsis. Patient is already received some IV fluids, but will be given an additional 500 mL fluid bolus to meet the 30 mL per KG requirement. She was started on broad-spectrum antibiotics. Blood cultures were already obtained and sent. Repeat lactate is pending at this time. Due to the patient's elevated troponin, I did consult cardiology and spoke with Corin. This is likely related to her infectious etiology and we will trend her troponins at this time. She'll be started on a heparin drip in the meantime, which is safe for the patient has no signs of intracranial hemorrhage. Echo was ordered. The patient's atrial fibrillation is chronic, and likely secondary to her infectious etiology as well. We'll continue to treat the infection. Heart rate has improved since arrival. Is currently 109bpm. Due to the patient's altered mental status, this is likely multifactorial, from the patient's infectious etiology, postictal state following seizure, as well as from the administration of Ativan for her seizures. We'll continue to monitor neurological status. I consulted Dr. Chua of neurology and reviewed the CT imaging with him. He accepted the consult. There is no concern for acute stroke at this time but patient will likely require MRI upon admission. Spoke with the admitting physician, Dr. carias who accepted the case. I did discuss the case with the ICU attending, Dr. Oviedo who accepted the case to his service. For The patient's hypernatremia, I will start her on a 100 mL an hour D5W drip. Patient was also started on Decadron for her COVID-19 infection. Patient was therefore admitted to the ICU in serious condition.Patient was ordered rectal Tylenol for her fever. - Lab Data Result diagrams: 09/10/21 11:39 09/10/21 11:39 Lab Results 09/10/21 09/10/21 09/10/21 Range/Units 11:27 11:39 11:39 WBC 10.5 (3.8-10.6) k/uL RBC 5.09 (3.80-5.40) m/uL Hgb 16.3 H D (11.4-16.0) gm/dL Hct 51.8 H (34.0-46.0) % MCV 101.8 H D (80.0-100.0) fL MCH 32.0 (25.0-35.0) pg MCHC 31.5 (31.0-37.0) g/dL RDW 13.2 (11.5-15.5) % Plt Count 197 (150-450) k/uL MPV 10.3 Neutrophils % 90 % Lymphocytes % 6 % Monocytes % 3 % Eosinophils % 0 % Basophils % 1 % Neutrophils # 9.4 H (1.3-7.7) k/uL Lymphocytes # 0.6 L (1.0-4.8) k/uL Monocytes # 0.3 (0-1.0) k/uL Eosinophils # 0.0 (0-0.7) k/uL Basophils # 0.1 (0-0.2) k/uL Hypochromasia Slight Macrocytosis Slight PT 16.7 H (9.0-12.0) sec INR 1.7 H (<1.2) APTT 26.0 (22.0-30.0) sec Sodium (137-145) mmol/L Potassium (3.5-5.1) mmol/L Chloride (98-107) mmol/L Carbon Dioxide (22-30) mmol/L Anion Gap mmol/L BUN (7-17) mg/dL Creatinine (0.52-1.04) mg/dL Est GFR (CKD-EPI)AfAm (>60 ml/min/1.73 sqM) Est GFR (CKD-EPI)NonAf (>60 ml/min/1.73 sqM) Glucose (74-99) mg/dL POC Glucose (mg/dL) 132 H (75-99) mg/dL POC Glu Bath Mix Operator ID Iris Alba Lactic Ac Sepsis Rflx Plasma Lactic Acid Miles (0.7-2.0) mmol/L Calcium (8.4-10.2) mg/dL Total Bilirubin (0.2-1.3) mg/dL AST (14-36) U/L ALT (4-34) U/L Alkaline Phosphatase (38-126) U/L Ammonia (<30) umol/L Troponin I (0.000-0.034) ng/mL Total Protein (6.3-8.2) g/dL Albumin (3.5-5.0) g/dL HCG, Qual Urine Color Urine Appearance (Clear) Urine pH (5.0-8.0) Ur Specific [place] (1.001-1.035) Urine Protein (Negative) Urine Glucose (UA) (Negative) Urine Ketones (Negative) Urine Blood (Negative) Urine Nitrite (Negative) Urine Bilirubin (Negative) Urine Urobilinogen (<2.0) mg/dL Ur Leukocyte Esterase (Negative) Urine RBC (0-5) /hpf Urine WBC (0-5) /hpf Ur Squamous Epith Cells (0-4) /hpf Urine Bacteria (None) /hpf Granular Casts (0) /lpf Urine Mucus (None) /hpf Urine Opiates Screen (NotDetected) Ur Oxycodone Screen (NotDetected) Urine Methadone Screen (NotDetected) Ur Propoxyphene Screen (NotDetected) Ur Barbiturates Screen (NotDetected) U Tricyclic Antidepress (NotDetected) Ur Phencyclidine Scrn (NotDetected) Ur Amphetamines Screen (NotDetected) U Methamphetamines Scrn (NotDetected) U Benzodiazepines Scrn (NotDetected) Urine Cocaine Screen (NotDetected) U Marijuana (THC) Screen (NotDetected) Serum Alcohol mg/dL Coronavirus (PCR) (Not Detectd) 09/10/21 09/10/21 09/10/21 Range/Units 11:39 11:39 11:39 WBC (3.8-10.6) k/uL RBC (3.80-5.40) m/uL Hgb (11.4-16.0) gm/dL Hct (34.0-46.0) % MCV (80.0-100.0) fL MCH (25.0-35.0) pg MCHC (31.0-37.0) g/dL RDW (11.5-15.5) % Plt Count (150-450) k/uL MPV Neutrophils % % Lymphocytes % % Monocytes % % Eosinophils % % Basophils % % Neutrophils # (1.3-7.7) k/uL Lymphocytes # (1.0-4.8) k/uL Monocytes # (0-1.0) k/uL Eosinophils # (0-0.7) k/uL Basophils # (0-0.2) k/uL Hypochromasia Macrocytosis PT (9.0-12.0) sec INR (<1.2) APTT (22.0-30.0) sec Sodium 164 H* (137-145) mmol/L Potassium 3.6 (3.5-5.1) mmol/L Chloride 116 H (98-107) mmol/L Carbon Dioxide 28 (22-30) mmol/L Anion Gap 20 mmol/L BUN 63 H (7-17) mg/dL Creatinine 1.74 H (0.52-1.04) mg/dL Est GFR (CKD-EPI)AfAm 39 (>60 ml/min/1.73 sqM) Est GFR (CKD-EPI)NonAf 34 (>60 ml/min/1.73 sqM) Glucose 159 H (74-99) mg/dL POC Glucose (mg/dL) (75-99) mg/dL POC Glu Bath Mix Operator ID Lactic Ac Sepsis Rflx Plasma Lactic Acid Miles 4.6 H* (0.7-2.0) mmol/L Calcium 9.0 (8.4-10.2) mg/dL Total Bilirubin 1.3 (0.2-1.3) mg/dL AST 202 H (14-36) U/L ALT 81 H (4-34) U/L Alkaline Phosphatase 59 (38-126) U/L Ammonia 24 (<30) umol/L Troponin I 0.331 H* (0.000-0.034) ng/mL Total Protein 8.2 (6.3-8.2) g/dL Albumin 4.0 (3.5-5.0) g/dL HCG, Qual Not Detected Urine Color Urine Appearance (Clear) Urine pH (5.0-8.0) Ur Specific [place] (1.001-1.035) Urine Protein (Negative) Urine Glucose (UA) (Negative) Urine Ketones (Negative) Urine Blood (Negative) Urine Nitrite (Negative) Urine Bilirubin (Negative) Urine Urobilinogen (<2.0) mg/dL Ur Leukocyte Esterase (Negative) Urine RBC (0-5) /hpf Urine WBC (0-5) /hpf Ur Squamous Epith Cells (0-4) /hpf Urine Bacteria (None) /hpf Granular Casts (0) /lpf Urine Mucus (None) /hpf Urine Opiates Screen (NotDetected) Ur Oxycodone Screen (NotDetected) Urine Methadone Screen (NotDetected) Ur Propoxyphene Screen (NotDetected) Ur Barbiturates Screen (NotDetected) U Tricyclic Antidepress (NotDetected) Ur Phencyclidine Scrn (NotDetected) Ur Amphetamines Screen (NotDetected) U Methamphetamines Scrn (NotDetected) U Benzodiazepines Scrn (NotDetected) Urine Cocaine Screen (NotDetected) U Marijuana (THC) Screen (NotDetected) Serum Alcohol <10 mg/dL Coronavirus (PCR) (Not Detectd) 09/10/21 09/10/21 09/10/21 Range/Units 11:46 11:46 12:27 WBC (3.8-10.6) k/uL RBC (3.80-5.40) m/uL Hgb (11.4-16.0) gm/dL Hct (34.0-46.0) % MCV (80.0-100.0) fL MCH (25.0-35.0) pg MCHC (31.0-37.0) g/dL RDW (11.5-15.5) % Plt Count (150-450) k/uL MPV Neutrophils % % Lymphocytes % % Monocytes % % Eosinophils % % Basophils % % Neutrophils # (1.3-7.7) k/uL Lymphocytes # (1.0-4.8) k/uL Monocytes # (0-1.0) k/uL Eosinophils # (0-0.7) k/uL Basophils # (0-0.2) k/uL Hypochromasia Macrocytosis PT (9.0-12.0) sec INR (<1.2) APTT (22.0-30.0) sec Sodium (137-145) mmol/L Potassium (3.5-5.1) mmol/L Chloride (98-107) mmol/L Carbon Dioxide (22-30) mmol/L Anion Gap mmol/L BUN (7-17) mg/dL Creatinine (0.52-1.04) mg/dL Est GFR (CKD-EPI)AfAm (>60 ml/min/1.73 sqM) Est GFR (CKD-EPI)NonAf (>60 ml/min/1.73 sqM) Glucose (74-99) mg/dL POC Glucose (mg/dL) (75-99) mg/dL POC Glu Bath Mix Operator ID Lactic Ac Sepsis Rflx Y Plasma Lactic Acid Miles (0.7-2.0) mmol/L Calcium (8.4-10.2) mg/dL Total Bilirubin (0.2-1.3) mg/dL AST (14-36) U/L ALT (4-34) U/L Alkaline Phosphatase (38-126) U/L Ammonia (<30) umol/L Troponin I (0.000-0.034) ng/mL Total Protein (6.3-8.2) g/dL Albumin (3.5-5.0) g/dL HCG, Qual Urine Color Dark Brown Urine Appearance Turbid H (Clear) Urine pH 6.0 (5.0-8.0) Ur Specific [place] 1.026 (1.001-1.035) Urine Protein 3+ H (Negative) Urine Glucose (UA) Trace H (Negative) Urine Ketones Negative (Negative) Urine Blood Large H (Negative) Urine Nitrite Negative (Negative) Urine Bilirubin Negative (Negative) Urine Urobilinogen <2.0 (<2.0) mg/dL Ur Leukocyte Esterase Moderate H (Negative) Urine RBC >182 H (0-5) /hpf Urine WBC >182 H (0-5) /hpf Ur Squamous Epith Cells 24 H (0-4) /hpf Urine Bacteria Moderate H (None) /hpf Granular Casts 48 (0) /lpf Urine Mucus Moderate H (None) /hpf Urine Opiates Screen Not Detected (NotDetected) Ur Oxycodone Screen Not Detected (NotDetected) Urine Methadone Screen Not Detected (NotDetected) Ur Propoxyphene Screen Not Detected (NotDetected) Ur Barbiturates Screen Not Detected (NotDetected) U Tricyclic Antidepress Not Detected (NotDetected) Ur Phencyclidine Scrn Not Detected (NotDetected) Ur Amphetamines Screen Not Detected (NotDetected) U Methamphetamines Scrn Not Detected (NotDetected) U Benzodiazepines Scrn Not Detected (NotDetected) Urine Cocaine Screen Not Detected (NotDetected) U Marijuana (THC) Screen Not Detected (NotDetected) Serum Alcohol mg/dL Coronavirus (PCR) Detected A (Not Detectd) - EKG Data -: EKG Interpreted by Me EKG Comments: 12-lead Electrocardiogram Interpretation Note EKG was reviewed and interpreted by myself. 12-lead ECG performed at 1315 is interpreted by me as revealing atrial fibrillation at a rate of 124 beats per minute. [place] is normal. OK Intervals 128 ms, QRS duration is 86 ms, QTc is 497 ms.. There were no ST or T wave abnormalities to suggest myocardial ischemia or injury. However there is a good deal of baseline artifact which makes this EKG difficult to interpret. R wave progression across the precordium was satisfactory. By my interpretation this EKG is non-diagnostic for acute ischemia. Critical Care Time Critical Care Time: Yes Total Critical Care Time: 35 Critical Care Time: Upon my evaluation, this patient had a high probability of imminent or life- threatening deterioration due to sepsis, altered mental status, breakthrough seizure, hypernatremia, brief A. fib with RVR,, which required my direct attention, intervention, and personal management. I have personally provided 35 minutes of critical care time exclusive of time spent on separately billable procedures. Time includes review of laboratory data, radiology results, discussion with consultants, and monitoring for potential decompensation. Interventions were performed as documented in my note. Disposition Clinical Impression: Hypernatremia, Seizure, Altered mental status, Sepsis, Dehydration, Atrial fibrillation, Elevated troponin, Seizure disorder, ESTUARDO (acute kidney injury), Lactic acid acidosis, COVID-19 Disposition: ADMITTED IP TO THIS HOSP Condition: Serious
[2021-09-10] MEDS ORDERED: PIPERACILLIN-TAZOBACTAM 3.375 GM in SODIUM CHLORIDE 0.9% 100 ML IVPB SCH (16:00)
[2021-09-10] MEDS ORDERED: ACETAMINOPHEN SUPPOSITORY 650 MG SUPP RECTAL STA (16:04)
[2021-09-10] MEDS ORDERED: ASPIRIN 300 MG SUPP RECTAL STA (16:11)
[2021-09-10] MEDS: carBAMazepine 200 MG TAB PO SCH ×2 (16:16→21:25)
--- NOTE | 2021-09-10 16:17 | P.CNPUL ---
History of Present Illness Consult date: 09/10/21 Reason for consult: pneumonia History of present illness: This is a 51-year-old female patient was brought into because of an altered mental status. The patient was found by her brother was concerned about her mental status. The patient has poor baseline performance and functional status and more recently she wasn't able to take care of herself. She was feeling more lethargic and tired and based on all this, she was brought into the emergency department. In the ED, the patient was having seizures and tachycardia and she was altered and unresponsive. The patient was given IV Ativan. At the time of my evaluation, the patient was quite sedated. No tracheal evidence of a seizure activity and the patient was withdrawing and 4 extremities without any limitation. The patient furthermore was found to have significant abnormalities in her blood work. The patient also tested positive for COVID 19. In summary, the patient was found to have a sodium level LXIV, chloride of 116, FiO2 of 4.6, troponin of 0.3, and UA was abnormal highly suspicious for underlying urine checked infection. Urine drug screen was negative. At this point in time, the patient on IV fluids and the patient is receiving D5 water at the rate of 100 mL an hour. The patient was given a combination of vancomycin and aztreonam as empiric antibiotic coverage. The patient was also started on Decadron 6 mg IV every 12 hours. Chest x-ray showing a left perihilar and lower lobe pulmonary infiltration and the patient is currently on 6 L of oxygen by nasal cannula with a pulse of a 98%. She is in sinus tachycardia. Nevertheless, she has history of atrial fibrillation. She has been minimal, to coagulation with Eliquis and she was also taken amiodarone on outpatient basis. She is also known to have cardiomyopathy with an ejection fraction of 30-35%. On regular inspection, the patient looks quite debilitated. She has a body mass index of 19.7. Very poor oral hygiene and multiple decayed teeth. Her personal hygiene is also poor. 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 History of Any Multi-Drug Resistant Organisms: None Reported Past Surgical History: Pacemaker Additional Past Surgical History / Comment(s): Bilateral eye surgery for g [place] Past Anesthesia/Blood Transfusion Reactions: No Reported Reaction Type of Cardiac Device: Permanent Pacemaker Device Placement Date:: 2012 Past Psychological History: Anxiety, Depression Smoking Status: Current every day smoker Past Alcohol Use History: Occasional Past Drug Use History: None Reported - Past Family History Father Family Medical History: Coronary Artery Disease (CAD), Myocardial Infarction (MA) Additional Family Medical History / Comment(s): Father is 75 yrs old. He had a silent MA. Mother Additional Family Medical History / Comment(s): Mother is at 32 yrs d/t cardiomyopathy Medications and Allergies Home Medications Medication Instructions Recorded Confirmed Type Atorvastatin Calcium [Lipitor] 80 mg PO HS 03/08/14 09/10/21 History levETIRAcetam [Keppra] 1,500 mg PO BID 03/22/17 09/10/21 History Gabapentin 600 mg PO TID 02/20/19 09/10/21 History Amiodarone [Cordarone] 200 mg PO DAILY 02/22/20 09/10/21 History carBAMazepine [TEGretol] 200 mg PO TID 02/22/20 09/10/21 History Apixaban [Eliquis] 5 mg PO BID 07/21/21 09/10/21 History Spironolactone [Aldactone] 25 mg PO DAILY 07/21/21 09/10/21 History Cholecalciferol [Vitamin D3 (125 125 mcg PO DAILY #30 tablet 07/22/21 09/10/21 Rx Mcg = 5000 Iu)] Allergies Allergy/AdvReac Type Severity Reaction Status Date / Time cephalexin monohydrate Allergy Rash/Hives Verified 09/10/21 11:26 [From Keflex] Penicillins Allergy Anaphylaxis Verified 09/10/21 11:26 Physical Exam Vitals: Vital Signs Temp Pulse Resp BP Pulse Ox 09/10/21 15:00 109 H 26 H 125/82 98 09/10/21 13:48 121 H 30 H 118/74 96 09/10/21 12:33 124 H 40 H 110/77 97 09/10/21 12:06 116 H 40 H 114/83 98 09/10/21 11:50 137 H 44 H 98/88 98 09/10/21 11:32 147 H 46 H 118/94 92 L 09/10/21 11:23 101 F H 154 H 18 195/59 72 L Intake and Output 09/10/21 09/10/21 09/10/21 06:59 14:59 22:59 Output Total 100 Balance -100 Output: Urine 100 Uretheral (Ambrocio) 100 Other: Weight 57.153 kg General: An minimally unresponsive, but appears extremely dry and ill. The patient is quite dry. Mucous membranes are dry. Body mass index is 19.7. Breathing is nonlabored. The patient's crit on 6 L nasal cannula. HEAD: Normal with no signs of head trauma. EYES: PERRLA, EOMI, conjunctiva normal, no discharge. Pupils are 2 mm and equal bilaterally. ENT: Hearing grossly intact, normal oropharynx. Extremely dry mucous membranes. RESPIRATORY: Patient was supposedly hypoxic in triage, so she was started on a nonrebreather. No obvious tachypnea at this time. C/V: Patient is tachycardic with a regular rhythm. S1 and S2 auscultated. Peripheral pulses 2+ and intact throughout. No peripheral edema. ABD: Abd is soft, nontender, nondistended. Patient is covered in stool. EXT: Normal range of motion, no obvious deformity SKIN: No rashes or lesions observed on exposed skin. NEURO: Alert but not oriented. Neurological exam is difficult to obtain at this time. GCS is currently 12,, as she does spontaneously open her eyes, localizes to pain, and speaks inappropriate words. She is moving all 4 extremity is. During exam, patient does have generalized tonic-clonic movements of the left upper extremity. It does appear she is actively seizing. This seizure activity was noted by the emergency physician. I did not witness any seizure activity. Results - Laboratory Findings CBC and BMP: 09/10/21 11:39 09/10/21 11:39 PT/INR, D-dimer PT 16.7 sec (9.0-12.0) H 09/10/21 11:39 INR 1.7 (<1.2) H 09/10/21 11:39 Abnormal lab findings: Abnormal Labs 09/10/21 09/10/21 09/10/21 11:27 11:39 11:39 Hgb 16.3 H D Hct 51.8 H MCV 101.8 H D Neutrophils # 9.4 H Lymphocytes # 0.6 L PT 16.7 H INR 1.7 H Sodium Chloride BUN Creatinine Glucose POC Glucose (mg/dL) 132 H Plasma Lactic Acid Miles AST ALT Troponin I Urine Appearance Urine Protein Urine Glucose (UA) Urine Blood Ur Leukocyte Esterase Urine RBC Urine WBC Ur Squamous Epith Cells Urine Bacteria Urine Mucus Coronavirus (PCR) 09/10/21 09/10/21 09/10/21 11:39 11:39 11:39 Hgb Hct MCV Neutrophils # Lymphocytes # PT INR Sodium 164 H* Chloride 116 H BUN 63 H Creatinine 1.74 H Glucose 159 H POC Glucose (mg/dL) Plasma Lactic Acid Miles 4.6 H* AST 202 H ALT 81 H Troponin I 0.331 H* Urine Appearance Urine Protein Urine Glucose (UA) Urine Blood Ur Leukocyte Esterase Urine RBC Urine WBC Ur Squamous Epith Cells Urine Bacteria Urine Mucus Coronavirus (PCR) 09/10/21 09/10/21 11:46 11:46 Hgb Hct MCV Neutrophils # Lymphocytes # PT INR Sodium Chloride BUN Creatinine Glucose POC Glucose (mg/dL) Plasma Lactic Acid Miles AST ALT Troponin I Urine Appearance Turbid H Urine Protein 3+ H Urine Glucose (UA) Trace H Urine Blood Large H Ur Leukocyte Esterase Moderate H Urine RBC >182 H Urine WBC >182 H Ur Squamous Epith Cells 24 H Urine Bacteria Moderate H Urine Mucus Moderate H Coronavirus (PCR) Detected A Assessment and Plan Plan: 1 altered mental status, multifactorial. The patient has significant a bnormalities in her electrolytes with significant intravascular volume depletion and the patient presented with seizures, given IV Ativan and currently she seems to be at least clinically seizure free. CAT scan of the brain was done and this was a limited exam. Nevertheless, there is some degenerative changes and remote ischemic changes and an LEFT thalamic and left cerebral peduncle stroke. Acute ischemia or an ischemic stroke could not be completely excluded. An MRI of the brain was recommended by the radiologist. 2 acute Covid 19 infection/pneumonia and the patient is limited infiltration of left lung base 3 acute hypoxic respiratory failure currently on 6 L of oxygen by nasal cannula 4 acute intravascular volume depletion/dehydration with severe hyperchloremic hypernatremia. The patient presented with severe dehydration probably due to lack of oral intake, and this could be complications of Covid 19 infection 5 history of seizure activity. 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 The patient also has had a TIA back in 2019. 15 history of gestational diabetes mellitus related to pregnancies 16 history of E. coli urine checked infection. 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 Recommend transferring this patient ICU. Keep the head of the bed elevated and aspiration precautions. The patient was given Ativan for seizure activity. The patient will be started back on IV Keppra 1 g every 12 hours and Tegretol will be also resume once the patient is able to take oral medication. Proceed with EEG MRI of the brain later stage to evaluate any development of a new stroke Continue Decadron regarding Covid 19 infection Check inflammatory markers including of his CRP and pro-calcitonin level and d-dimer is Resume anticoagulation once the patient is more awake and the patient is already maintained on Eliquis 5 mg by mouth twice a day. Meanwhile, the patient was started on IV heparin Urine cultures and blood cultures Cover the patient empiric antibiotics and the patient a combination of aztreonam and vancomycin. The choice of antibiotics was done based on her history of ALLERGIES. Continue D5 water at the rate of 100 mL an hour. Monitor I's and sodium level. Stop diuretics for now. Admit this patient ICU. Neurology consultation. We'll continue to follow.
--- NOTE | 2021-09-10 16:21 | P.CNNES ---
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 Patient not able to provide any history. I spoke to patient's dad on the phone, who mentions that patient, her brother and dad all went to [facility] on 09/02/2021. Shortly after they became sick, patient's brother contacted Cash virus. Patient herself has been feeling very sick, not drinking water for last 1 week, not 8 for last 3 days, feeling very sick, tired. Patient has never received any vaccination for Cash virus. As she was getting worse, patient's dad and patient's brother brought her to the hospital. In the hospital patient started having seizures. I spoke with the patient's nurse, who described these as eye movements, with gazing to the right. There was no convulsive activity otherwise. Patient's seizures were managed by ED physician. Patient was given Keppra loading dose of 4 g IV. Patient also received Ativan 2 mg IV push, but then the seizure-like activity persisted, therefore she was given another 4 mg of Ativan. Since then she is just groggy, but not having any seizures. Vital signs on arrival blood pressure 195/59, pulse rate 154, temperature 101.0. Patient's blood pressure did improve, but became hypotensive 98/88. Sepsis was suspected. Blood test shows WBC 10.5 hemoglobin 16.3, elevated MCV 101.8. Platelet 197. INR 1.7, PTT 26.0. Sodium 164, potassium 3.6, BUN 63, creatinine 1.74. AST is 202, ALT 81, ammonia is normal 24. Troponin is mildly elevated 0.331. UA shows moderate leukocyte esterase, more than 182 WBC and more than 182 RBC. Moderate bacteria. Urine drug screen negative. Blood alcohol level negative. Cash virus PCR positive. Plasma lactate elevated 4.6. Patient's last hemoglobin A1c 5.1 on 10/20/2020. Patient had a normal B12 of 1199 on 07/21/2021 and folate 10.0. Her TSH was low <0.015, free T4 [address] head was limited exam due to artifact demonstrates no sizable intraparenchymal hemorrhage. Degenerative and evidence of remote ischemic change. However there is awake low attenuation near the left thalamus and left cerebral peduncle. Acute ischemia in the differential diagnosis. Recommend stat MRI of the brain with [facility] [place] as clinically warranted. Attention to right cavernous segment ICA also recommended, as it appears to be asymmetrically dilated. Chest x-ray showed left perihilar and left lower lobe infiltrate. Small effusion correlate for pneumonia. Patient had an EEG on 10/21/2020, which revealed continuous focal slowing and dysrhythmic delta and theta activity involving the right frontotemporal head region. This is suggestive of focal cortical neuronal dysfunction and may suggest an underlying structural abnormality. A mild background slowing and disorganization suggestive of encephalopathy. No epileptiform activity was seen. Patient has been seen by myself on 10/20/2020 for acute onset of gait ataxia, f requent falls and imbalance, which was felt to be related to combination of use of multiple high-dose antiepileptic medication and patient drinking a big cup of white [place] vodka 24 hours prior. Patient has multiple strokes in the past, on warfarin. Patient has history of 4 mm saccular aneurysm involving supraclinoid right ICA prior to the carotid terminus. Patient was recommended to follow up with neuro intervention to discuss about cerebral aneurysm. Patient had reported that her seizures have been well controlled on Keppra 1500 mg twice a day, Tegretol 200 mg 3 times a day, gabapentin 600 mg 3 times a day. Review of Systems ROS unobtainable: due to mental status Past Medical History Past Medical History: Coronary Artery Disease (CAD), Heart Failure, CVA/TIA, Eye Disorder, Pneumonia, Pulmonary Embolus (PE), Seizure Disorder, Skin Disorder Additional Past Medical History / Comment(s): Last seizure 2009, CVA 2007 with L sided weakness arm and leg and has L foot drop, TIA 2018, cardiomyopathy, R PE and pneumothorax/pneumonia following leg fracture in 1994, gestational diabetes with all pregnancies (4), bilateral glaucoma with surgery, psoriasis in the past, UTIs. History of Any Multi-Drug Resistant Organisms: None Reported Past Surgical History: Pacemaker Additional Past Surgical History / Comment(s): Bilateral eye surgery for glaucoma Past Anesthesia/Blood Transfusion Reactions: No Reported Reaction Type of Cardiac Device: Permanent Pacemaker Device Placement Date:: 2012 Past Psychological History: Anxiety, Depression Smoking Status: Current every day smoker Past Alcohol Use History: Occasional Past Drug Use History: None Reported - Past Family History Father Family Medical History: Coronary Artery Disease (CAD), Myocardial Infarction (PA) Additional Family Medical History / Comment(s): Father is 75 yrs old. He had a silent PA. Mother Additional Family Medical History / Comment(s): Mother is at 32 yrs d/t cardiomyopathy Medications and Allergies Home Medications Medication Instructions Recorded Confirmed Type Atorvastatin Calcium [Lipitor] 80 mg PO HS 03/08/14 09/10/21 History levETIRAcetam [Keppra] 1,500 mg PO BID 03/22/17 09/10/21 History Gabapentin 600 mg PO TID 02/20/19 09/10/21 History Amiodarone [Cordarone] 200 mg PO DAILY 02/22/20 09/10/21 History carBAMazepine [TEGretol] 200 mg PO TID 02/22/20 09/10/21 History Apixaban [Eliquis] 5 mg PO BID 07/21/21 09/10/21 History Spironolactone [Aldactone] 25 mg PO DAILY 07/21/21 09/10/21 History Cholecalciferol [Vitamin D3 (125 125 mcg PO DAILY #30 tablet 07/22/21 09/10/21 Rx Mcg = 5000 Iu)] Allergies Allergy/AdvReac Type Severity Reaction Status Date / Time cephalexin monohydrate Allergy Rash/Hives Verified 09/10/21 11:26 [From Keflex] Penicillins Allergy Anaphylaxis Verified 09/10/21 11:26 Physical Examination - Vital Signs Vital Signs: Vital Signs Temp Pulse Resp BP Pulse Ox 09/10/21 15:00 109 H 26 H 125/82 98 09/10/21 13:48 121 H 30 H 118/74 96 09/10/21 12:33 124 H 40 H 110/77 97 09/10/21 12:06 116 H 40 H 114/83 98 09/10/21 11:50 137 H 44 H 98/88 98 09/10/21 11:32 147 H 46 H 118/94 92 L 09/10/21 11:23 101 F H 154 H 18 195/59 72 L Intake and Output 09/10/21 09/10/21 09/10/21 06:59 14:59 22:59 Output Total 100 Balance -100 Output: Urine 100 Uretheral (Ambrocio) 100 Other: Weight 57.153 kg Patient is a middle aged female, who appears older than her stated age. Patient is cachectic. Slightly emaciated. Patient is severely encephalopathic, also somnolent from receiving high dose Keppra 4 g, and Ativan 6 mg. Patient is not responding to calling her name, or with painful stimuli. Patient only slightly grimaces at times. On cranial examination, pupils are round and reacting to light, visual shetty cannot be tested. Patient's left eye appears to be slightly adducted. Patient sometimes gazes to the right and then brings to the midline. No twitching noted. Face is symmetric. Lower cranial nerves cannot be tested. On muscle strength testing, cannot be tested because of mental status. Left arm appears spastic. Deep tendon reflexes are symmetric, plantar is upgoing bilaterally. Sensory to touch cannot be assessed. Cerebellar functions and gait cannot be assessed. On general examination, there is no carotid bruit or murmur, S1-S2 audible. Abdomen is soft nontender. Patient has coarse crackles. Peripheral pulses are present. No edema. Results - Laboratory Findings CBC and BMP: 09/10/21 11:39 09/10/21 11:39 Abnormal Lab Findings: Abnormal Labs 09/10/21 09/10/21 09/10/21 11:27 11:39 11:39 Hgb 16.3 H D Hct 51.8 H MCV 101.8 H D Neutrophils # 9.4 H Lymphocytes # 0.6 L PT 16.7 H INR 1.7 H Sodium Chloride BUN Creatinine Glucose POC Glucose (mg/dL) 132 H Plasma Lactic Acid Miles AST ALT Troponin I Urine Appearance Urine Protein Urine Glucose (UA) Urine Blood Ur Leukocyte Esterase Urine RBC Urine WBC Ur Squamous Epith Cells Urine Bacteria Urine Mucus Coronavirus (PCR) 09/10/21 09/10/21 09/10/21 11:39 11:39 11:39 Hgb Hct MCV Neutrophils # Lymphocytes # PT INR Sodium 164 H* Chloride 116 H BUN 63 H Creatinine 1.74 H Glucose 159 H POC Glucose (mg/dL) Plasma Lactic Acid Miles 4.6 H* AST 202 H ALT 81 H Troponin I 0.331 H* Urine Appearance Urine Protein Urine Glucose (UA) Urine Blood Ur Leukocyte Esterase Urine RBC Urine WBC Ur Squamous Epith Cells Urine Bacteria Urine Mucus Coronavirus (PCR) 09/10/21 09/10/21 11:46 11:46 Hgb Hct MCV Neutrophils # Lymphocytes # PT INR Sodium Chloride BUN Creatinine Glucose POC Glucose (mg/dL) Plasma Lactic Acid Miles AST ALT Troponin I Urine Appearance Turbid H Urine Protein 3+ H Urine Glucose (UA) Trace H Urine Blood Large H Ur Leukocyte Esterase Moderate H Urine RBC >182 H Urine WBC >182 H Ur Squamous Epith Cells 24 H Urine Bacteria Moderate H Urine Mucus Moderate H Coronavirus (PCR) Detected A Assessment and Plan Assessment: * Altered mental status, likely due to toxic metabolic encephalopathy, postictal state and medication effect (received Ativan 6 mg IV). Causes multifactorial as mentioned below. * Breakthrough seizure, likely due to multiple metabolic derangements. Patient had seizure disorder for long time, seizures in remission since 2009. * Acute Covid-19 infection with pneumonia. * Probable acute UTI. 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 * History of pacemaker. Plan: * Patient is critically sick due to multiple medical issues as mentioned above. * Patient is dehydrated, with acute renal insufficiency. Aggressive hydration. Keppra is metabolized through the kidneys. Patient has received 4 g of Keppra IV. We will decrease Keppra to 1000 mg IV twice a day for now. * Resume Tegretol 200 mg 3 times a day * Check Tegretol, Dilantin, Keppra and Neurontin levels. * Stat EEG * Repeat computed tomography scan of the head in the morning to rule out any evolving stroke. * Resume anticoagulation with Eliquis as early as possible. May need NG tube. * Other medical management as per IM, critical care. * Cardiology has been consulted for elevated cardiac enzymes. * Patient started on vancomycin and aztreonam. Suggest ID consult. * Discussed with Dr. Cunha, also with patient's father in detail. * Neurology will follow. Thank you for the consult. Time with Patient: Greater than 30 (Complexity high)
[2021-09-10 18:00] LABS: Glucose,Whole Blood 187 mg/dL (75-99)
[2021-09-10 18:57] LABS: Allen Test Performed? Yes
[2021-09-10 18:58] LABS: ABG Base Excess 1.6 mmol/L; ABG HCO3 28 mmol/L (21-25); ABG PCO2 52 mmHg (35-45); ABG PH 7.34 (7.35-7.45); ABG PO2 93 mmHg (83-108); ABG TCO2 29 mmol/L (19-24)
[2021-09-10 20:16] LABS: African American GFR (CKD) 68 (>60 ml/min/1.73 sqM); Anion Gap 9 mmol/L; Blood Urea Nitrogen 47 mg/dL (7-17); Calcium 7.8 mg/dL (8.4-10.2); Carbamazepine (Tegretol) <3.0 ug/mL; Carbon Dioxide 26 mmol/L (22-30); Chloride 121 mmol/L (98-107); Glucose 271 mg/dL (74-99); Non-African American GFR(CKD) 59 (>60 ml/min/1.73 sqM); Phenytoin (Dilantin) <3.0 ug/mL; Potassium 3.2 mmol/L (3.5-5.1); Sodium 156 mmol/L (137-145)
[2021-09-10 20:25] LABS: Creatine Kinase MB 5.7 ng/mL (0.0-2.4)
[2021-09-10 20:27] LABS: Troponin I 0.22 ng/mL (0.000-0.034)
[2021-09-10] MEDS: levETIRAcetam IV 1,000 MG in SALINE 1 100ML.BAG IVPB SCH (20:28)
[2021-09-10] MEDS: AZTREONAM 2 GM in SODIUM CHLORIDE 0.9% 100 ML IVPB SCH (21:24)
[2021-09-10] MEDS: ATORVASTATIN 80 MG TAB PO SCH (21:26)
[2021-09-10] MEDS ORDERED: Potassium Replacement Protocol 1 EACH MISC MISCELLANE PRN (21:54)
[2021-09-10] MEDS: POTASSIUM CHLORIDE 10 MEQ in WATER FOR INJECTION 1 100ML.BAG IVPB SCH ×2 (22:13→23:18)
--- NOTE | 2021-09-10 23:08 | P.HPIM ---
History of Present Illness This is a pleasant 51 years old female with past medical history of Coronary Artery Disease, Heart Failure, CVA/TIA, Pulmonary Embolus (PE), Seizure Disorder, Last seizure 2009, CVA 2007 with L sided weakness arm and leg and has L foot drop, TIA 2018, cardiomyopathy, R PE and pneumothorax/pneumonia following leg fracture in 1994, gestational diabetes with all pregnancies , bilateral glaucoma with surgery, psoriasis in the past, UTIs. She is a status post Pacemaker, history of Bilateral eye surgery for glaucoma, Anxiety, Depression, Current every day smoker Patient presents because of altered mental status. Information was limited from the patient. It was obtained from the chart and medical staff. Also as per family patient was able to go to the bathroom, was more lethargic and tired over the last day. While in the emergency room focal mild seizure is noticed On admission patient had and fever of 101. She is tachypneic at 26-40, tachycardic 110-140, also she is hypoxic saturating 72% on room air Labs showing WBC of 10.5, hemoglobin of 16.3, platelet count of 197. INR 1.7. Sodium 164, creatinine 1.7, lactic acid elevated 4.6. Liver enzymes elevated with AST 202 and ALT 81. Bilirubin is normal at 1.3. Urine analysis is highly suspicious of infection Urine drug screen is negative Cash versus positive Chest x-ray showing left perihilar and left lower lobe area of infiltrate and small effusion correlates for pneumonia CT of the brain without contrast showing no intracranial hemorrhage, evidence of remote ischemic change. However there is vague low attenuation near the left thalamus and left cerebral peduncle. Acute ischemia in the differential diagnosis. Recommend stat MRI of brain with MRSA [place] as clinically warranted. In the emergency room patient was started on aztreonam and IV vancomycin, Keppra and heparin drip Review of Systems n/patient could not provide information as she is confused Past Medical History Past Medical History: Coronary Artery Disease (CAD), Heart Failure, CVA/TIA, Eye Disorder, Pneumonia, Pulmonary Embolus (PE), Seizure Disorder, Skin Disorder Additional Past Medical History / Comment(s): Last seizure 2009, CVA 2007 with L sided weakness arm and leg and has L foot drop, TIA 2019, cardiomyopathy, R PE and pneumothorax/pneumonia following leg fracture in 1994, gestational diabetes with all pregnancies (4), bilateral glaucoma with surgery, psoriasis in the past, UTIs. History of Any Multi-Drug Resistant Organisms: None Reported Past Surgical History: Pacemaker Additional Past Surgical History / Comment(s): Bilateral eye surgery for glauco ma Past Anesthesia/Blood Transfusion Reactions: No Reported Reaction Type of Cardiac Device: Permanent Pacemaker Device Placement Date:: 2012 Past Psychological History: Anxiety, Depression Smoking Status: Current every day smoker Past Alcohol Use History: Occasional Past Drug Use History: None Reported - Past Family History Father Family Medical History: Coronary Artery Disease (CAD), Myocardial Infarction ([place]) Additional Family Medical History / Comment(s): Father is 75 yrs old. He had a silent [place]. Mother Additional Family Medical History / Comment(s): Mother is at 32 yrs d/t cardiomyopathy Medications and Allergies Home Medications Medication Instructions Recorded Confirmed Type Atorvastatin Calcium [Lipitor] 80 mg PO HS 03/08/14 09/10/21 History levETIRAcetam [Keppra] 1,500 mg PO BID 03/22/17 09/10/21 History Gabapentin 600 mg PO TID 02/20/19 09/10/21 History Amiodarone [Cordarone] 200 mg PO DAILY 02/22/20 09/10/21 History carBAMazepine [TEGretol] 200 mg PO TID 02/22/20 09/10/21 History Apixaban [Eliquis] 5 mg PO BID 07/21/21 09/10/21 History Spironolactone [Aldactone] 25 mg PO DAILY 07/21/21 09/10/21 History Cholecalciferol [Vitamin D3 (125 125 mcg PO DAILY #30 tablet 07/22/21 09/10/21 Rx Mcg = 5000 Iu)] Allergies Allergy/AdvReac Type Severity Reaction Status Date / Time cephalexin monohydrate Allergy Rash/Hives Verified 09/10/21 11:26 [From Keflex] Penicillins Allergy Anaphylaxis Verified 09/10/21 11:26 Physical Exam Vitals: Vital Signs Temp Pulse Resp BP Pulse Ox 09/10/21 15:00 109 H 26 H 125/82 98 09/10/21 13:48 121 H 30 H 118/74 96 09/10/21 12:33 124 H 40 H 110/77 97 09/10/21 12:06 116 H 40 H 114/83 98 09/10/21 11:50 137 H 44 H 98/88 98 09/10/21 11:32 147 H 46 H 118/94 92 L 09/10/21 11:23 101 F H 154 H 18 195/59 72 L Intake and Output 09/10/21 09/10/21 09/10/21 06:59 14:59 22:59 Output Total 100 Balance -100 Output: Urine 100 Uretheral (Ambrocio) 100 Other: Weight 57.153 kg -GENERAL: The patient is confused and cannot provide information HEENT: Pupils are round and equally reacting to light. EOMI. No scleral icterus. No conjunctival pallor. Normocephalic, atraumatic. No pharyngeal erythema. No thyromegaly. CARDIOVASCULAR: S1 and S2 present. No murmurs, rubs, or gallops. PULMONARY: Chest is clear to auscultation, no wheezing or crackles. ABDOMEN: Soft, nontender, nondistended, normoactive bowel sounds. No palpable organomegaly. MUSCULOSKELETAL: No joint swelling or deformity. EXTREMITIES: No cyanosis, clubbing, or pedal edema. NEUROLOGICAL: Gross neurological examination did not reveal any focal deficits. SKIN: No rashes. No petechiae Results CBC & Chem 7: 09/10/21 11:39 09/10/21 19:55 Labs: Abnormal Lab Results - Last 24 Hours (Table) 09/10/21 09/10/21 09/10/21 Range/Units 11:27 11:39 11:39 Hgb 16.3 H D (11.4-16.0) gm/dL Hct 51.8 H (34.0-46.0) % MCV 101.8 H D (80.0-100.0) fL Neutrophils # 9.4 H (1.3-7.7) k/uL Lymphocytes # 0.6 L (1.0-4.8) k/uL PT 16.7 H (9.0-12.0) sec INR 1.7 H (<1.2) Sodium (137-145) mmol/L Chloride (98-107) mmol/L BUN (7-17) mg/dL Creatinine (0.52-1.04) mg/dL Glucose (74-99) mg/dL POC Glucose (mg/dL) 132 H (75-99) mg/dL Plasma Lactic Acid Miles (0.7-2.0) mmol/L AST (14-36) U/L ALT (4-34) U/L Troponin I (0.000-0.034) ng/mL Urine Appearance (Clear) Urine Protein (Negative) Urine Glucose (UA) (Negative) Urine Blood (Negative) Ur Leukocyte Esterase (Negative) Urine RBC (0-5) /hpf Urine WBC (0-5) /hpf Ur Squamous Epith Cells (0-4) /hpf Urine Bacteria (None) /hpf Urine Mucus (None) /hpf Coronavirus (PCR) (Not Detectd) 09/10/21 09/10/21 09/10/21 Range/Units 11:39 11:39 11:39 Hgb (11.4-16.0) gm/dL Hct (34.0-46.0) % MCV (80.0-100.0) fL Neutrophils # (1.3-7.7) k/uL Lymphocytes # (1.0-4.8) k/uL PT (9.0-12.0) sec INR (<1.2) Sodium 164 H* (137-145) mmol/L Chloride 116 H (98-107) mmol/L BUN 63 H (7-17) mg/dL Creatinine 1.74 H (0.52-1.04) mg/dL Glucose 159 H (74-99) mg/dL POC Glucose (mg/dL) (75-99) mg/dL Plasma Lactic Acid Miles 4.6 H* (0.7-2.0) mmol/L AST 202 H (14-36) U/L ALT 81 H (4-34) U/L Troponin I 0.331 H* (0.000-0.034) ng/mL Urine Appearance (Clear) Urine Protein (Negative) Urine Glucose (UA) (Negative) Urine Blood (Negative) Ur Leukocyte Esterase (Negative) Urine RBC (0-5) /hpf Urine WBC (0-5) /hpf Ur Squamous Epith Cells (0-4) /hpf Urine Bacteria (None) /hpf Urine Mucus (None) /hpf Coronavirus (PCR) (Not Detectd) 09/10/21 09/10/21 Range/Units 11:46 11:46 Hgb (11.4-16.0) gm/dL Hct (34.0-46.0) % MCV (80.0-100.0) fL Neutrophils # (1.3-7.7) k/uL Lymphocytes # (1.0-4.8) k/uL PT (9.0-12.0) sec INR (<1.2) Sodium (137-145) mmol/L Chloride (98-107) mmol/L BUN (7-17) mg/dL Creatinine (0.52-1.04) mg/dL Glucose (74-99) mg/dL POC Glucose (mg/dL) (75-99) mg/dL Plasma Lactic Acid Miles (0.7-2.0) mmol/L AST (14-36) U/L ALT (4-34) U/L Troponin I (0.000-0.034) ng/mL Urine Appearance Turbid H (Clear) Urine Protein 3+ H (Negative) Urine Glucose (UA) Trace H (Negative) Urine Blood Large H (Negative) Ur Leukocyte Esterase Moderate H (Negative) Urine RBC >182 H (0-5) /hpf Urine WBC >182 H (0-5) /hpf Ur Squamous Epith Cells 24 H (0-4) /hpf Urine Bacteria Moderate H (None) /hpf Urine Mucus Moderate H (None) /hpf Coronavirus (PCR) Detected A (Not Detectd) Assessment and Plan Assessment: Altered mental status could be metabolic/toxic encephalopathy, rule out other intracranial lesions, seizure Left lower lobe pneumonia, rule out aspiration pneumonia Sepsis secondary to UTI and pneumonia Acute stroke is suspected with new focus at the left thalamus and left cerebral peduncle Bilateral Covid pneumonia Acute hypoxic respiratory failure Increased inflammatory markers elevated troponin, most likely type II ischemia. Rule out primary cardiac causes Hypernatremia Acute kidney injury Mild elevated liver enzymes History of coronary artery disease History of pulmonary embolism History of seizure disorder, last seizure was in 2009 as per documents History 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 left foot drop History of glaucoma status post surgery Status post permanent pacemaker Nicotine dependence Plan: This is a pleasant 51 years old female who presents with altered mental status, pneumonia, UTI, possible stroke, seizure and possible covid pneumonia Continue with Keppra and neurology consult. MRI of the brain is recommended however I'm not sure if her clinical condition allow doing test, we'll defer this to neurology and pulmonary/critical care team pulmonary consult, continue the broad-spectrum antibiotics with aztreonam and vancomycin. Follow-up sputum and blood and urine culture Continue with dexamethasone Continue with vitamin C, vitamin D and zinc Pulmonary consult /critical care team consult Cardiology team consult for elevated troponin continue with D5W on follow-up sodium level Labs and medication were reviewed.. Continue same treatment. Continue with symptomatic treatment. Resume home medication. Monitor lytes and vitals. DVT and GI prophylaxis. Further recommendations depends on the clinical course of t he patient DVT prophylaxis: heparin GI Prophylaxis: Pepcid PT/OT: n/a Prognosis is guarded
[2021-09-10 23:57] LABS: Glucose,Whole Blood 258 mg/dL (75-99)
[2021-09-11] MEDS: INSULIN ASPART (NovoLOG) 100 UNIT/ML VIAL SQ SCH ×4 (00:24→18:50)
[2021-09-11] MEDS: POTASSIUM CHLORIDE 10 MEQ in WATER FOR INJECTION 1 100ML.BAG IVPB SCH ×6 (00:32→11:46)
[2021-09-11 01:27] LABS: Calcium 8.4 mg/dL (8.4-10.2); Potassium 4.7 mmol/L (3.5-5.1)
[2021-09-11] MEDS: AZTREONAM 2 GM in SODIUM CHLORIDE 0.9% 100 ML IVPB SCH ×3 (05:09→21:47)
[2021-09-11 05:26] LABS: Basophils % (A) 0 %; Eosinophils % (A) 0 %; HCT 40.6 % (34.0-46.0); Hypochromasia Moderate; Lymphocytes # (A) 0.5 k/uL (1.0-4.8); Lymphocytes % (A) 5 %; MCH 31.5 pg (25.0-35.0); MCHC 30.3 g/dL (31.0-37.0); MCV 104.1 fL (80.0-100.0); Macrocytosis Slight; Mean Platelet Volume 10.2; Monocytes # (A) 0.1 k/uL (0-1.0); Monocytes % (A) 2 %; Neutrophils # (A) 8.1 k/uL (1.3-7.7); Neutrophils % (A) 93 %; Platelet Count 138 k/uL (150-450); RDW 13.6 % (11.5-15.5); WBC 8.8 k/uL (3.8-10.6)
[2021-09-11 05:27] LABS: HGB 12.3 gm/dL (11.4-16.0)
[2021-09-11 05:35] LABS: INR 2.1 (<1.2); Partial Thromboplastin Time 51.3 sec (22.0-30.0); Prothrombin Time 20.3 sec (9.0-12.0)
[2021-09-11 05:55] LABS: ALT 55 U/L (4-34); AST 142 U/L (14-36); African American GFR (CKD) >90 (>60 ml/min/1.73 sqM); Albumin 2.7 g/dL (3.5-5.0); Alkaline Phosphatase 42 U/L (38-126); Anion Gap 8 mmol/L; Blood Urea Nitrogen 36 mg/dL (7-17); Calcium 7.5 mg/dL (8.4-10.2); Carbon Dioxide 26 mmol/L (22-30); Chloride 116 mmol/L (98-107); Glucose 268 mg/dL (74-99); LDH 1505 U/L (313-618); Magnesium 2.3 mg/dL (1.6-2.3); Non-African American GFR(CKD) 87 (>60 ml/min/1.73 sqM); Potassium 3.3 mmol/L (3.5-5.1); Sodium 150 mmol/L (137-145); Total Bilirubin 0.7 mg/dL (0.2-1.3); Total Protein 5.7 g/dL (6.3-8.2)
[2021-09-11] MEDS ORDERED: VANCOMYCIN 1,000 MG in SODIUM CHLORIDE 0.9% 250 ML IVPB SCH (06:00)
[2021-09-11 06:06] LABS: Glucose,Whole Blood 221 mg/dL (75-99)
[2021-09-11 06:09] LABS: C Reactive Protein 20.5 mg/dL (<1.0)
[2021-09-11] MEDS: DEXTROSE 5% IN WATER 1,000 ML IV SCH ×2 (07:56→14:21)
[2021-09-11] MEDS: carBAMazepine 200 MG TAB PO SCH ×2 (08:18→18:31)
[2021-09-11] MEDS: AMIODARONE 200 MG TAB PO SCH (08:18)
[2021-09-11] MEDS: CHOLECALCIFEROL 125 MCG (5000 IU) TABLET PO SCH (08:18)
[2021-09-11] MEDS: PANTOPRAZOLE 40 MG/10 ML VIAL IV SCH (08:22)
[2021-09-11] MEDS: levETIRAcetam IV 1,000 MG in SALINE 1 100ML.BAG IVPB SCH ×2 (08:22→21:46)
[2021-09-11] MEDS: DEXAMETHASONE SOD PHOSPHATE 10 MG/ML 1 ML VIAL IVP SCH (08:22)
--- NOTE | 2021-09-11 08:51 | P.PN ---
Subjective Progress Note Date: 09/11/21 This is a 51-year-old female patient was brought into because of an altered mental status. The patient was found by her brother was concerned about her mental status. The patient has poor baseline performance and functional status and more recently she wasn't able to take care of herself. She was feeling more lethargic and tired and based on all this, she was brought into the emergency department. In the ED, the patient was having seizures and tachycardia and she was altered and unresponsive. The patient was given IV Ativan. At the time of my evaluation, the patient was quite sedated. No tracheal evidence of a seizure activity and the patient was withdrawing and 4 extremities without any l imitation. The patient furthermore was found to have significant abnormalities in her blood work. The patient also tested positive for COVID 19. In summary, the patient was found to have a sodium level LXIV, chloride of 116, FiO2 of 4.6, troponin of 0.3, and UA was abnormal highly suspicious for underlying urine checked infection. Urine drug screen was negative. At this point in time, the patient on IV fluids and the patient is receiving D5 water at the rate of 100 mL an hour. The patient was given a combination of vancomycin and aztreonam as empiric antibiotic coverage. The patient was also started on Decadron 6 mg IV every 12 hours. Chest x-ray showing a left perihilar and lower lobe pulmonary infiltration and the patient is currently on 6 L of oxygen by nasal cannula with a pulse of a 98%. She is in sinus tachycardia. Nevertheless, she has history of atrial fibrillation. She has been minimal, to coagulation with Eliquis and she was also taken amiodarone on outpatient basis. She is also known to have cardiomyopathy with an ejection fraction of 30-35%. On regular inspection, the patient looks quite debilitated. She has a body mass index of 19.7. Very poor oral hygiene and multiple decayed teeth. Her personal hygiene is also poor. 09/11/2021, the patient is being seen in follow-up in the intensive care units. No seizure activity overnight. The patient is being given D5 water at the rate of 150 mL an hour. The sodium level is improved and is currently down to 150. Neurologically, limited more interactive compared to yesterday. She opens her eyes. She mumbles. Nevertheless, she cannot hold a conversation and she cannot follow any commands at this point in time. She looks extremely emaciated, debilitated on inspection. Meanwhile, the patient was suspected to have UTI. She was placed on a combination of aztreonam and vancomycin as an empiric antibiotic coverage. She was started on IV Keppra regarding her seizure activity and previous history of epilepsy. She is also on Decadron 6 mg IV regarding over 19 infection. On today's blood work, the sodium level is down to 150, chloride level is down to 116, acute kidney injury is improving and the creatinine is down to 0.8 and has normalized, urine output is improved, the LDH level is 1505 and a CRP level is at 20.5 and this is consistent with: 19 infection. White cell count is at 8.8 with a hemoglobin of 12.3 and a platelet count of 138. The chest x-ray from yesterday was noted. The follow-up chest x- ray was not done today. Neurology consulted on this patient. She is noted to b e coagulopathic and the patient was taken Eliquis on outpatient basis regarding previous history of chronic atrial fibrillation. Her current cardiac rhythm is sinus for now. She is known to have cardiomyopathy with an ejection fraction of 30-35% based on a previous echocardiogram. Objective - Vital Signs Vital signs: Vital Signs Temp 96.7 F L 09/11/21 08:00 Pulse 88 09/11/21 08:00 Resp 17 09/11/21 08:00 BP 116/77 09/11/21 08:00 Pulse Ox 95 09/11/21 08:00 Intake & Output 09/10/21 09/11/21 09/11/21 18:59 06:59 18:59 Intake Total 100 2170 270 Output Total 500 880 80 Balance -400 1290 190 Weight 59 kg 59 kg Intake: IV 100 1670 270 Dextrose 5% in Water 1, 100 1670 170 000 ml @ 150 mls/hr IV . Q6H40M ONE Rx#:[id number] Potassium Chloride 10 meq 100 In Water For Injection 1 100ml.bag @ 100 mls/hr IVPB Q1HR [facility] Rx#: [id number] Intake, IV Titration 500 Amount Potassium Chloride 10 meq 200 In Water For Injection 1 100ml.bag @ 100 mls/hr IVPB Q1HR [facility] Rx#: [id number] Potassium Chloride 10 meq 100 In Water For Injection 1 100ml.bag @ 100 mls/hr IVPB Q1HR [facility] Rx#: [id number] Vancomycin 1,000 mg In 100 Sodium Chloride 0.9% 250 ml @ 125 mls/hr IVPB Q16H [facility] Rx#:[id number] levETIRAcetam IV 1,000 mg 100 In Saline 1 100ml.bag @ 400 mls/hr IVPB Q12HR [facility] Rx#:[id number] Output: Urine 500 880 80 Uretheral (Ambrocio) 100 Other: Voiding Method Indwelling Catheter Indwelling Catheter - Exam General: An minimally unresponsive, but appears extremely dry and ill. The patient is quite dry. Mucous membranes are dry. Body mass index is 19.7. Breathing is nonlabored. The patient's 3 L nasal cannula. HEAD: Normal with no signs of head trauma. EYES: PERRLA, EOMI, conjunctiva normal, no discharge. Pupils are 2 mm and equal bilaterally. ENT: Hearing grossly intact, normal oropharynx. Extremely dry mucous membranes. Lungs were clear to auscultation and percussion, and with normal diaphragmatic excursion. No wheezes or rales were noted. Cardiac exam revealed the PMI to be normally situated and sized. The rhythm was regular and no extrasystoles were noted during several minutes of auscultation. The first and second heart sounds were normal and physiologic splitting of the s econd heart sound was noted. There were no murmurs, rubs, clicks, or gallops. ABD: Abd is soft, nontender, nondistended. EXT: Normal range of motion, no obvious deformity SKIN: No rashes or lesions observed on exposed skin. NEURO: Patient remains very much lethargic, opens her eyes spontaneously, there is some withdrawal to painful stimulation. She mumbles. Unable to hold a conversation yet. Does not follow commands yet. As his wrist drop and chronic contracture in her left upper extremity, probably related to the previous stroke. There may be also some limited left facial weakness again chronic. - Labs CBC & Chem 7: 09/11/21 04:28 09/11/21 04:28 Labs: Abnormal Lab Results - Last 24 Hours (Table) 09/10/21 09/10/21 09/10/21 Range/Units 11:27 11:39 11:39 Hgb 16.3 H D (11.4-16.0) gm/dL Hct 51.8 H (34.0-46.0) % MCV 101.8 H D (80.0-100.0) fL MCHC (31.0-37.0) g/dL Plt Count (150-450) k/uL Neutrophils # 9.4 H (1.3-7.7) k/uL Lymphocytes # 0.6 L (1.0-4.8) k/uL PT 16.7 H (9.0-12.0) sec INR 1.7 H (<1.2) APTT (22.0-30.0) sec D-Dimer (<0.60) mg/L FEU ABG pH (7.35-7.45) ABG pCO2 (35-45) mmHg ABG HCO3 (21-25) mmol/L ABG Total CO2 (19-24) mmol/L Sodium (137-145) mmol/L Potassium (3.5-5.1) mmol/L Chloride (98-107) mmol/L BUN (7-17) mg/dL Creatinine (0.52-1.04) mg/dL Glucose (74-99) mg/dL POC Glucose (mg/dL) 132 H (75-99) mg/dL Plasma Lactic Acid Miles (0.7-2.0) mmol/L Calcium (8.4-10.2) mg/dL Magnesium (1.6-2.3) mg/dL AST (14-36) U/L ALT (4-34) U/L Lactate Dehydrogenase (313-618) U/L CK-MB (CK-2) (0.0-2.4) ng/mL Troponin I (0.000-0.034) ng/mL C-Reactive Protein (<1.0) mg/dL Total Protein (6.3-8.2) g/dL Albumin (3.5-5.0) g/dL Urine Appearance (Clear) Urine Protein (Negative) Urine Glucose (UA) (Negative) Urine Blood (Negative) Ur Leukocyte Esterase (Negative) Urine RBC (0-5) /hpf Urine WBC (0-5) /hpf Ur Squamous Epith Cells (0-4) /hpf Urine Bacteria (None) /hpf Urine Mucus (None) /hpf Coronavirus (PCR) (Not Detectd) 01/13/22 01/13/22 01/13/22 Range/Units 11:39 11:39 11:39 Hgb (11.4-16.0) gm/dL Hct (34.0-46.0) % MCV (80.0-100.0) fL MCHC (31.0-37.0) g/dL Plt Count (150-450) k/uL Neutrophils # (1.3-7.7) k/uL Lymphocytes # (1.0-4.8) k/uL PT (9.0-12.0) sec INR (<1.2) APTT (22.0-30.0) sec D-Dimer (<0.60) mg/L FEU ABG pH (7.35-7.45) ABG pCO2 (35-45) mmHg ABG HCO3 (21-25) mmol/L ABG Total CO2 (19-24) mmol/L Sodium 164 H* (137-145) mmol/L Potassium (3.5-5.1) mmol/L Chloride 116 H (98-107) mmol/L BUN 63 H (7-17) mg/dL Creatinine 1.74 H (0.52-1.04) mg/dL Glucose 159 H (74-99) mg/dL POC Glucose (mg/dL) (75-99) mg/dL Plasma Lactic Acid Miles 4.6 H* (0.7-2.0) mmol/L Calcium (8.4-10.2) mg/dL Magnesium (1.6-2.3) mg/dL AST 202 H (14-36) U/L ALT 81 H (4-34) U/L Lactate Dehydrogenase (313-618) U/L CK-MB (CK-2) (0.0-2.4) ng/mL Troponin I 0.331 H* (0.000-0.034) ng/mL C-Reactive Protein (<1.0) mg/dL Total Protein (6.3-8.2) g/dL Albumin (3.5-5.0) g/dL Urine Appearance (Clear) Urine Protein (Negative) Urine Glucose (UA) (Negative) Urine Blood (Negative) Ur Leukocyte Esterase (Negative) Urine RBC (0-5) /hpf Urine WBC (0-5) /hpf Ur Squamous Epith Cells (0-4) /hpf Urine Bacteria (None) /hpf Urine Mucus (None) /hpf Coronavirus (PCR) (Not Detectd) 09/10/21 09/10/21 09/10/21 Range/Units 11:46 11:46 16:08 Hgb (11.4-16.0) gm/dL Hct (34.0-46.0) % MCV (80.0-100.0) fL MCHC (31.0-37.0) g/dL Plt Count (150-450) k/uL Neutrophils # (1.3-7.7) k/uL Lymphocytes # (1.0-4.8) k/uL PT (9.0-12.0) sec INR (<1.2) APTT (22.0-30.0) sec D-Dimer (<0.60) mg/L FEU ABG pH (7.35-7.45) ABG pCO2 (35-45) mmHg ABG HCO3 (21-25) mmol/L ABG Total CO2 (19-24) mmol/L Sodium (137-145) mmol/L Potassium (3.5-5.1) mmol/L Chloride (98-107) mmol/L BUN (7-17) mg/dL Creatinine (0.52-1.04) mg/dL Glucose (74-99) mg/dL POC Glucose (mg/dL) (75-99) mg/dL Plasma Lactic Acid Miles (0.7-2.0) mmol/L Calcium (8.4-10.2) mg/dL Magnesium (1.6-2.3) mg/dL AST (14-36) U/L ALT (4-34) U/L Lactate Dehydrogenase (313-618) U/L CK-MB (CK-2) (0.0-2.4) ng/mL Troponin I 0.268 H* (0.000-0.034) ng/mL C-Reactive Protein (<1.0) mg/dL Total Protein (6.3-8.2) g/dL Albumin (3.5-5.0) g/dL Urine Appearance Turbid H (Clear) Urine Protein 3+ H (Negative) Urine Glucose (UA) Trace H (Negative) Urine Blood Large H (Negative) Ur Leukocyte Esterase Moderate H (Negative) Urine RBC >182 H (0-5) /hpf Urine WBC >182 H (0-5) /hpf Ur Squamous Epith Cells 24 H (0-4) /hpf Urine Bacteria Moderate H (None) /hpf Urine Mucus Moderate H (None) /hpf Coronavirus (PCR) Detected A (Not Detectd) 09/10/21 09/10/21 09/10/21 Range/Units 17:58 18:46 19:55 Hgb (11.4-16.0) gm/dL Hct (34.0-46.0) % MCV (80.0-100.0) fL MCHC (31.0-37.0) g/dL Plt Count (150-450) k/uL Neutrophils # (1.3-7.7) k/uL Lymphocytes # (1.0-4.8) k/uL PT (9.0-12.0) sec INR (<1.2) APTT 45.0 H (22.0-30.0) sec D-Dimer (<0.60) mg/L FEU ABG pH 7.34 L (7.35-7.45) ABG pCO2 52 H (35-45) mmHg ABG HCO3 28 H (21-25) mmol/L ABG Total CO2 29 H (19-24) mmol/L Sodium (137-145) mmol/L Potassium (3.5-5.1) mmol/L Chloride (98-107) mmol/L BUN (7-17) mg/dL Creatinine (0.52-1.04) mg/dL Glucose (74-99) mg/dL POC Glucose (mg/dL) 187 H (75-99) mg/dL Plasma Lactic Acid Miles (0.7-2.0) mmol/L Calcium (8.4-10.2) mg/dL Magnesium (1.6-2.3) mg/dL AST (14-36) U/L ALT (4-34) U/L Lactate Dehydrogenase (313-618) U/L CK-MB (CK-2) (0.0-2.4) ng/mL Troponin I (0.000-0.034) ng/mL C-Reactive Protein (<1.0) mg/dL Total Protein (6.3-8.2) g/dL Albumin (3.5-5.0) g/dL Urine Appearance (Clear) Urine Protein (Negative) Urine Glucose (UA) (Negative) Urine Blood (Negative) Ur Leukocyte Esterase (Negative) Urine RBC (0-5) /hpf Urine WBC (0-5) /hpf Ur Squamous Epith Cells (0-4) /hpf Urine Bacteria (None) /hpf Urine Mucus (None) /hpf Coronavirus (PCR) (Not Detectd) 09/10/21 09/10/21 09/10/21 Range/Units 19:55 19:55 19:55 Hgb (11.4-16.0) gm/dL Hct (34.0-46.0) % MCV (80.0-100.0) fL MCHC (31.0-37.0) g/dL Plt Count (150-450) k/uL Neutrophils # (1.3-7.7) k/uL Lymphocytes # (1.0-4.8) k/uL PT (9.0-12.0) sec INR (<1.2) APTT (22.0-30.0) sec D-Dimer (<0.60) mg/L FEU ABG pH (7.35-7.45) ABG pCO2 (35-45) mmHg ABG HCO3 (21-25) mmol/L ABG Total CO2 (19-24) mmol/L Sodium 156 H (137-145) mmol/L Potassium 3.2 L (3.5-5.1) mmol/L Chloride 121 H (98-107) mmol/L BUN 47 H (7-17) mg/dL Creatinine 1.10 H (0.52-1.04) mg/dL Glucose 271 H (74-99) mg/dL POC Glucose (mg/dL) (75-99) mg/dL Plasma Lactic Acid Miles (0.7-2.0) mmol/L Calcium 7.8 L (8.4-10.2) mg/dL Magnesium 2.8 H (1.6-2.3) mg/dL AST (14-36) U/L ALT (4-34) U/L Lactate Dehydrogenase (313-618) U/L CK-MB (CK-2) 5.7 H (0.0-2.4) ng/mL Troponin I 0.220 H* (0.000-0.034) ng/mL C-Reactive Protein (<1.0) mg/dL Total Protein (6.3-8.2) g/dL Albumin (3.5-5.0) g/dL Urine Appearance (Clear) Urine Protein (Negative) Urine Glucose (UA) (Negative) Urine Blood (Negative) Ur Leukocyte Esterase (Negative) Urine RBC (0-5) /hpf Urine WBC (0-5) /hpf Ur Squamous Epith Cells (0-4) /hpf Urine Bacteria (None) /hpf Urine Mucus (None) /hpf Coronavirus (PCR) (Not Detectd) 09/10/21 09/11/21 09/11/21 Range/Units 23:55 00:11 04:28 Hgb (11.4-16.0) gm/dL Hct (34.0-46.0) % MCV (80.0-100.0) fL MCHC (31.0-37.0) g/dL Plt Count (150-450) k/uL Neutrophils # (1.3-7.7) k/uL Lymphocytes # (1.0-4.8) k/uL PT 20.3 H (9.0-12.0) sec INR 2.1 H (<1.2) APTT 51.3 H (22.0-30.0) sec D-Dimer 0.75 H (<0.60) mg/L FEU ABG pH (7.35-7.45) ABG pCO2 (35-45) mmHg ABG HCO3 (21-25) mmol/L ABG Total CO2 (19-24) mmol/L Sodium 153 H (137-145) mmol/L Potassium (3.5-5.1) mmol/L Chloride 122 H (98-107) mmol/L BUN 41 H (7-17) mg/dL Creatinine (0.52-1.04) mg/dL Glucose 298 H (74-99) mg/dL POC Glucose (mg/dL) 258 H (75-99) mg/dL Plasma Lactic Acid Miles (0.7-2.0) mmol/L Calcium (8.4-10.2) mg/dL Magnesium (1.6-2.3) mg/dL AST (14-36) U/L ALT (4-34) U/L Lactate Dehydrogenase (313-618) U/L CK-MB (CK-2) (0.0-2.4) ng/mL Troponin I (0.000-0.034) ng/mL C-Reactive Protein (<1.0) mg/dL Total Protein (6.3-8.2) g/dL Albumin (3.5-5.0) g/dL Urine Appearance (Clear) Urine Protein (Negative) Urine Glucose (UA) (Negative) Urine Blood (Negative) Ur Leukocyte Esterase (Negative) Urine RBC (0-5) /hpf Urine WBC (0-5) /hpf Ur Squamous Epith Cells (0-4) /hpf Urine Bacteria (None) /hpf Urine Mucus (None) /hpf Coronavirus (PCR) (Not Detectd) 09/11/21 09/11/21 09/11/21 Range/Units 04:28 04:28 06:04 Hgb (11.4-16.0) gm/dL Hct (34.0-46.0) % MCV 104.1 H (80.0-100.0) fL MCHC 30.3 L (31.0-37.0) g/dL Plt Count 138 L (150-450) k/uL Neutrophils # 8.1 H (1.3-7.7) k/uL Lymphocytes # 0.5 L (1.0-4.8) k/uL PT (9.0-12.0) sec INR (<1.2) APTT (22.0-30.0) sec D-Dimer (<0.60) mg/L FEU ABG pH (7.35-7.45) ABG pCO2 (35-45) mmHg ABG HCO3 (21-25) mmol/L ABG Total CO2 (19-24) mmol/L Sodium 150 H (137-145) mmol/L Potassium 3.3 L (3.5-5.1) mmol/L Chloride 116 H (98-107) mmol/L BUN 36 H (7-17) mg/dL Creatinine (0.52-1.04) mg/dL Glucose 268 H (74-99) mg/dL POC Glucose (mg/dL) 221 H (75-99) mg/dL Plasma Lactic Acid Miles (0.7-2.0) mmol/L Calcium 7.5 L (8.4-10.2) mg/dL Magnesium (1.6-2.3) mg/dL AST 142 H (14-36) U/L ALT 55 H (4-34) U/L Lactate Dehydrogenase 1505 H (313-618) U/L CK-MB (CK-2) (0.0-2.4) ng/mL Troponin I (0.000-0.034) ng/mL C-Reactive Protein 20.5 H (<1.0) mg/dL Total Protein 5.7 L (6.3-8.2) g/dL Albumin 2.7 L (3.5-5.0) g/dL Urine Appearance (Clear) Urine Protein (Negative) Urine Glucose (UA) (Negative) Urine Blood (Negative) Ur Leukocyte Esterase (Negative) Urine RBC (0-5) /hpf Urine WBC (0-5) /hpf Ur Squamous Epith Cells (0-4) /hpf Urine Bacteria (None) /hpf Urine Mucus (None) /hpf Coronavirus (PCR) (Not Detectd) Assessment and Plan Plan: 1 altered mental status, multifactorial. The patient has significant abnormalities in her electrolytes with significant intravascular volume depletion and the patient presented with seizures, given IV Ativan and currently she seems to be at least clinically seizure free. CAT scan of the brain was done and this was a limited exam. Nevertheless, there is some degenerative changes and remote ischemic changes and an LEFT thalamic and left cerebral peduncle stroke. Acute ischemia or an ischemic stroke could not be completely excluded. An MRI of the brain was recommended by the radiologist. Clinically, the patient is improving and she seems to be slightly more awake compared to yesterday. Neurology remains on the case. The patient remains on IV Keppra. No seizure activity has been noted overnight. 2 acute Covid 19 infection/pneumonia and the patient is limited infiltration of left lung base 3 acute hypoxic respiratory failure currently on 3 L of oxygen by nasal cannula 4 acute intravascular volume depletion/dehydration with severe hyperchloremic hypernatremia. The patient presented with severe dehydration probably due to lack of oral intake, and this could be complications of Covid 19 infection, clinically improving and the patient's sodium level is down to 150. 5 history of seizure activity. 6 previous history of pulmonary embolism on long-term medical condition with Eliquis 7 paroxysmal atrial fibrillation current rhythm is sinus, currently on IV heparin and the cardiac rhythm is still sinus. 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 The patient also has had a TIA back in 2019. 15 history of gestational diabetes mellitus related to pregnancies 16 history of E. coli urine checked infection. 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 Continue the D5 water at the rate of 150 mL an hour Continue IV heparin Continue IV Decadron and reduce the dose to once a day 6 mg Continue IV Keppra Keep the head of the bed elevated and aspiration precautions. Proceed with EEG MRI of the brain later stage to evaluate any development of a new stroke Check inflammatory markers including of his CRP and LDH, elevated Urine cultures and blood cultures Cover the patient empiric antibiotics and the patient a combination of aztreonam and vancomycin. The choice of antibiotics was done based on her history of ALLERGIES. Keep this patient ICU. Neurology consultation. We'll continue to follow.
[2021-09-11] MEDS ORDERED: SPIRONOLACTONE 25 MG TAB PO SCH (09:00)
--- NOTE | 2021-09-11 09:27 | ECHOF ---
Referral Reason:elevated troponin MEASUREMENTS -------- HEIGHT: 170.2 cm WEIGHT: 57.1 kg BP: 118/74 RVIDd: 2.9 cm (< 3.3) IVSd: 1.0 cm (0.6 - 1.1) LVIDd: 5.1 cm (3.9 - 5.3) LVPWd: 1.1 cm (0.6 - 1.1) IVSs: 1.3 cm LVIDs: 4.3 cm LVPWs: 1.3 cm LA Diam: 3.5 cm (2.7 - 3.8) LAESV Index (A-L): 34.74 ml/m Ao Diam: 3.2 cm (2.0 - 3.7) AV Cusp: 1.8 cm (1.5 - 2.6) MV EXCURSION: 18.048 mm (> 18.000) MV EF SLOPE: 144 mm/s (70 - 150) EPSS: 1.4 cm MV E Eusebio: 0.61 m/s MV DecT: 139 ms MV A Eusebio: 0.75 m/s MV E/A Ratio: 0.81 FINDINGS -------- AICD This was a technically adequate study. The left ventricular size is normal. Left ventricular wall thickness is normal. Overall left vent ricular systolic function is moderate-severely impaired with, an EF between 30 - 35 %. Global hypok inesis The right ventricle is normal in size. LA is moderately dilated 34-39 ml/m2 The right atrium is normal in size. Interatrial and interventricular septum intact. Trace to mild aortic regurgitation. There is trace mitral regurgitation. Trace tricuspid regurgitation present. Unable to estimate RVSP due to inadequate TR jet spectral do ppler profile. The aortic root size is normal. Normal inferior vena cava with normal inspiratory collapse consistent with estimated right atrial pre ssure of 5 mmHg. There is no pericardial effusion. CONCLUSIONS -------- 1. The left ventricular size is normal. 2. Left ventricular wall thickness is normal. 3. Overall left ventricular systolic function is moderate-severely impaired with, an EF between 30 - 35 %. 4. Global hypokinesis 5. LA is moderately dilated 34-39 ml/m2 6. Trace to mild aortic regurgitation. 7. There is trace mitral regurgitation. 8. Trace tricuspid regurgitation present. 9. There is no pericardial effusion. COMPENSATION AND BENEFITS ADVISOR: Rayna Perkins RDCS
--- NOTE | 2021-09-11 10:45 | P.CRDCN ---
History of Present Illness History of present illness: This is Dr. Torre dictating a consult on this patient I was contacted by the ER physician yesterday urgently for an evaluation while I was in a procedure Patient evaluated by nurse practitioner IMPRESSION / ASSESSMENT: Sinus tachycardia not atrial fibrillation documented on initial twelve-lead EKG Abnormal troponins with this electrolyte arrhythmia dehydration acute renal injury Global hypokinesis, cardio myopathy ejection fraction 30-35% PLAN: Management of patient's this Tenia, dehydration, mental status changes per medical team and appropriate consultants From a cardiac standpoint her borderline troponins are in the setting of dyslipidemia and acute renal injury and known cardiac myopathy She does not have atrial fibrillation at this time The twelve-lead EKG shows sinus tachycardia Her vitals are stable and I will start her on metoprolol 25 mg twice daily as long as she swallows her pills safely HPI patient admitted with altered mental status Noticed to be more tired and lethargic Possibility for seizure Focal seizures noted at bedside, Patient not opening her eyes, not answering any questions According to brother is a history of seizures Past history of paroxysmal atrial fibrillation and cardio myopathy and pulmonary embolism twelve-lead EKG showed A. fib with RVR Patient noted to be hyponatremic and hypochloremic Sodium 164 chloride 116 Creatinine 1.74 BUN of 63 and lactic acid of 4.6 Cardiology consulted urgently for abnormal troponins in the setting of altered mental status, seizure activity sodium 146 chloride of 116 and renal failure And atrial fibrillation that was diagnosed on a twelve-lead EKG The twelve-lead EKG shows sinus tachycardia not atrial fibrillation EXAMINATION: 160-77 mmHg pulse rate in the 70s afebrile REVIEW OF LABS, ECG & MEDICAL DATA 2-D echo shows ejection fraction 30-35% with global hypokinesis Hemoglobin today 12.3 D-dimer 0.75 Sodium improved at 150 Bason 2.3 BUN 36 and creatinine 0.8 Borderline troponins of 0.33, 0.26 0.2 Past Medical History Past Medical History: Coronary Artery Disease (CAD), Heart Failure, CVA/TIA, Eye Disorder, Pneumonia, Pulmonary Embolus (PE), Seizure Disorder, Skin Disorder Additional Past Medical History / Comment(s): Last seizure 2009, CVA 2007 with L sided weakness arm and leg and has L foot drop, TIA 2018, cardiomyopathy, R PE and pneumothorax/pneumonia following leg fracture in 1994, gestational diabetes with all pregnancies (4), bilateral glaucoma with surgery, psoriasis in the past, UTIs. History of Any Multi-Drug Resistant Organisms: None Reported Past Surgical History: Pacemaker Additional Past Surgical History / Comment(s): Bilateral eye surgery for glaucoma Past Anesthesia/Blood Transfusion Reactions: No Reported Reaction Type of Cardiac Device: Permanent Pacemaker Device Placement Date:: 2012 Past Psychological History: Anxiety, Depression Smoking Status: Current every day smoker Past Alcohol Use History: Occasional Past Drug Use History: None Reported - Past Family History Father Family Medical History: Coronary Artery Disease (CAD), Myocardial Infarction ([place] ) Additional Family Medical History / Comment(s): Father is 75 yrs old. He had a silent [place]. Mother Additional Family Medical History / Comment(s): Mother is at 32 yrs d/t cardiomyopathy Medications and Allergies Home Medications Medication Instructions Recorded Confirmed Type Atorvastatin Calcium [Lipitor] 80 mg PO HS 03/08/14 09/10/21 History levETIRAcetam [Keppra] 1,500 mg PO BID 03/22/17 09/10/21 History Gabapentin 600 mg PO TID 02/20/19 09/10/21 History Amiodarone [Cordarone] 200 mg PO DAILY 02/22/20 09/10/21 History carBAMazepine [TEGretol] 200 mg PO TID 02/22/20 09/10/21 History Apixaban [Eliquis] 5 mg PO BID 07/21/21 09/10/21 History Spironolactone [Aldactone] 25 mg PO DAILY 07/21/21 09/10/21 History Cholecalciferol [Vitamin D3 (125 125 mcg PO DAILY #30 tablet 07/22/21 09/10/21 Rx Mcg = 5000 Iu)] Allergies Allergy/AdvReac Type Severity Reaction Status Date / Time cephalexin monohydrate Allergy Rash/Hives Verified 09/10/21 11:26 [From Keflex] Penicillins Allergy Anaphylaxis Verified 09/10/21 11:26 Physical Exam Vitals: Vital Signs Temp Pulse Resp BP Pulse Ox 09/11/21 10:00 70 25 H 121/69 97 09/11/21 09:00 75 7 L 115/74 96 09/11/21 08:00 96.7 F L 88 17 116/77 95 09/11/21 07:47 98 09/11/21 07:30 75 14 116/77 97 09/11/21 07:00 82 20 117/73 97 09/11/21 06:30 80 21 117/73 97 09/11/21 06:00 72 15 117/75 97 09/11/21 05:30 82 20 117/75 99 09/11/21 05:00 83 24 116/65 97 09/11/21 04:30 79 27 H 116/65 98 09/11/21 04:00 98.4 F 99 27 H 124/81 95 09/11/21 03:45 97 09/11/21 03:30 84 23 124/81 98 09/11/21 03:00 92 23 133/82 99 09/11/21 02:30 91 20 133/82 98 09/11/21 02:00 96 22 121/86 98 09/11/21 01:30 95 26 H 121/86 98 09/11/21 01:00 96 29 H 116/76 98 09/11/21 00:30 93 24 116/76 98 09/11/21 00:00 98.8 F 94 26 H 110/74 98 09/10/21 23:30 100 26 H 110/74 98 09/10/21 23:07 92 28 H 110/74 98 09/10/21 23:00 96 24 115/73 98 09/10/21 22:30 96 28 H 115/73 98 09/10/21 22:00 96 24 102/66 98 09/10/21 21:30 105 H 26 H 116/74 97 09/10/21 21:00 106 H 27 H 122/69 98 09/10/21 20:30 104 H 24 132/90 97 09/10/21 20:00 99 F 106 H 19 128/76 98 09/10/21 19:30 99 F 115 H 25 H 132/70 95 09/10/21 19:00 114 H 25 H 130/77 96 09/10/21 18:30 116 H 25 H 95 09/10/21 18:21 99.1 F 114 H 26 H 140/97 95 09/10/21 18:00 98.5 F 112 H 26 H 118/88 99 09/10/21 17:00 116 H 26 H 118/88 95 09/10/21 16:00 111 H 18 125/84 99 09/10/21 15:00 109 H 26 H 125/82 98 09/10/21 13:48 121 H 30 H 118/74 96 09/10/21 12:33 124 H 40 H 110/77 97 09/10/21 12:06 116 H 40 H 114/83 98 09/10/21 11:50 137 H 44 H 98/88 98 09/10/21 11:32 147 H 46 H 118/94 92 L 09/10/21 11:23 101 F H 154 H 18 195/59 72 L Intake and Output 09/10/21 09/11/21 09/11/21 22:59 06:59 14:59 Intake Total 900 1370 620 Output Total 640 640 140 Balance 260 730 480 Intake: IV 700 1070 620 Dextrose 5% in Water 1, 700 1070 320 000 ml @ 150 mls/hr IV . Q6H40M [facility] Rx#:[id number] Potassium Chloride 10 meq 200 In Water For Injection 1 100ml.bag @ 100 mls/hr IVPB Q1HR [facility] Rx#: [id number] levETIRAcetam IV 1,000 mg 100 In Saline 1 100ml.bag @ 400 mls/hr IVPB Q12HR [facility] Rx#:[id number] Intake, IV Titration 200 300 Amount Potassium Chloride 10 meq 200 In Water For Injection 1 100ml.bag @ 100 mls/hr IVPB Q1HR [facility] Rx#: [id number] Potassium Chloride 10 meq 100 In Water For Injection 1 100ml.bag @ 100 mls/hr IVPB Q1HR [facility] Rx#: [id number] Vancomycin 1,000 mg In 100 Sodium Chloride 0.9% 250 ml @ 125 mls/hr IVPB Q16H [facility] Rx#:[id number] levETIRAcetam IV 1,000 mg 100 In Saline 1 100ml.bag @ 400 mls/hr IVPB Q12HR [facility] Rx#:[id number] Output: Urine 640 640 140 Other: Voiding Method Indwelling Catheter Indwelling Catheter Indwelling Catheter Weight 59 kg 59 kg Results 09/11/21 04:28 09/11/21 04:28 Cardiac Enzymes 09/10/21 09/10/21 09/10/21 Range/Units 11:39 11:39 16:08 AST 202 H (14-36) U/L Lactate Dehydrogenase (313-618) U/L CK-MB (CK-2) (0.0-2.4) ng/mL Troponin I 0.331 H* 0.268 H* (0.000-0.034) ng/mL 09/10/21 09/11/21 Range/Units 19:55 04:28 AST 142 H (14-36) U/L Lactate Dehydrogenase 1505 H (313-618) U/L CK-MB (CK-2) 5.7 H (0.0-2.4) ng/mL Troponin I 0.220 H* (0.000-0.034) ng/mL Coagulation 09/10/21 09/10/21 09/11/21 Range/Units 11:39 19:55 04:28 PT 16.7 H 20.3 H (9.0-12.0) sec APTT 26.0 45.0 H 51.3 H (22.0-30.0) sec CBC 09/10/21 09/11/21 Range/Units 11:39 04:28 WBC 10.5 8.8 (3.8-10.6) k/uL RBC 5.09 3.90 (3.80-5.40) m/uL Hgb 16.3 H D 12.3 D (11.4-16.0) gm/dL Hct 51.8 H 40.6 (34.0-46.0) % Plt Count 197 138 L (150-450) k/uL Comprehensive Metabolic Panel 09/10/21 09/10/21 09/11/21 Range/Units 11:39 19:55 00:11 Sodium 164 H* 156 H 153 H (137-145) mmol/L Potassium 3.6 3.2 L 4.7 (3.5-5.1) mmol/L Chloride 116 H 121 H 122 H (98-107) mmol/L Carbon Dioxide 28 26 25 (22-30) mmol/L BUN 63 H 47 H 41 H (7-17) mg/dL Creatinine 1.74 H 1.10 H 0.94 (0.52-1.04) mg/dL Glucose 159 H 271 H 298 H (74-99) mg/dL Calcium 9.0 7.8 L 8.4 (8.4-10.2) mg/dL AST 202 H (14-36) U/L ALT 81 H (4-34) U/L Alkaline Phosphatase 59 (38-126) U/L Total Protein 8.2 (6.3-8.2) g/dL Albumin 4.0 (3.5-5.0) g/dL 09/11/21 Range/Units 04:28 Sodium 150 H (137-145) mmol/L Potassium 3.3 L (3.5-5.1) mmol/L Chloride 116 H (98-107) mmol/L Carbon Dioxide 26 (22-30) mmol/L BUN 36 H (7-17) mg/dL Creatinine 0.80 (0.52-1.04) mg/dL Glucose 268 H (74-99) mg/dL Calcium 7.5 L (8.4-10.2) mg/dL AST 142 H (14-36) U/L ALT 55 H (4-34) U/L Alkaline Phosphatase 42 (38-126) U/L Total Protein 5.7 L (6.3-8.2) g/dL Albumin 2.7 L (3.5-5.0) g/dL Current Medications Generic Name Dose Route Start Last Admin Trade Name Freq PRN Reason Stop Dose Admin Amiodarone HCl 200 mg 09/11/21 09:00 09/11/21 08:18 Amiodarone 200 Mg Tab PO Not Given DAILY ADDIE Atorvastatin Calcium 80 mg 09/10/21 21:00 09/10/21 21:26 Atorvastatin 80 Mg Tab PO Not Given HS ADDIE Carbamazepine 200 mg 09/10/21 16:00 09/11/21 08:18 Carbamazepine 200 Mg Tab PO Not Given TID ADDIE Cholecalciferol 125 mcg 09/11/21 09:00 09/11/21 08:18 Cholecalciferol 125 Mcg (5000 Iu) Tablet PO Not Given DAILY ADDIE Dexamethasone Sodium Phosphate 6 mg 09/12/21 09:00 Dexamethasone Sod Phosphate 10 Mg/Ml 1 Ml Vial IVP DAILY ADDIE Aztreonam 2 gm/ Sodium 100 mls @ 33.333 mls/hr 09/10/21 21:00 09/11/21 05:09 Chloride IVPB 33.333 mls/hr Q8H ADDIE Administration Levetiracetam 1,000 mg/ IV 100 mls @ 400 mls/hr 09/10/21 21:00 09/11/21 08:22 Solution IVPB 400 mls/hr Q12HR ADDIE Administration Potassium Chloride 10 meq/ IV 100 mls @ 100 mls/hr 09/11/21 07:00 09/11/21 09:22 Solution IVPB 09/11/21 10:59 100 mls/hr Q1HR ADDIE Administration Protocol Dextrose/Water 1,000 mls @ 150 mls/hr 09/11/21 07:30 09/11/21 07:56 Dextrose 5%-Water Iv Soln IV 150 mls/hr .Q6H40M ADDIE Administration Vancomycin HCl 1,000 mg/ 250 mls @ 125 mls/hr 09/11/21 17:00 Sodium Chloride IVPB Q12H [facility] Insulin Aspart 0 unit 09/11/21 00:15 09/11/21 06:11 Insulin Aspart (Novolog) 100 Unit/Ml Vial SQ 3 unit Q6H ADDIE Administration Protocol Miscellaneous Information 1 each 09/10/21 21:54 Potassium Replacement Protocol 1 Each Misc MISCELLANE DAILY PRN Per Protocol Protocol Miscellaneous Information 0 each 09/12/21 16:00 Vancomycin Trough Due 1 Each Misc MISCELLANE 09/12/21 16:01 DIRECTED ONE Naloxone HCl 0.2 mg 09/10/21 14:32 Naloxone 0.4 Mg/Ml 1 Ml Vial IV Q2M PRN Opioid Reversal Pantoprazole Sodium 40 mg 09/11/21 09:00 09/11/21 08:22 Pantoprazole 40 Mg/10 Ml Vial IV 40 mg DAILY ADDIE Administration Intake and Output 09/10/21 09/11/21 09/11/21 22:59 06:59 14:59 Intake Total 900 1370 620 Output Total 640 640 140 Balance 260 730 480 Intake: IV 700 1070 620 Dextrose 5% in Water 1, 700 1070 320 000 ml @ 150 mls/hr IV . Q6H40M [facility] Rx#:[id number] Potassium Chloride 10 meq 200 In Water For Injection 1 100ml.bag @ 100 mls/hr IVPB Q1HR [facility] Rx#: [id number] levETIRAcetam IV 1,000 mg 100 In Saline 1 100ml.bag @ 400 mls/hr IVPB Q12HR [facility] Rx#:[id number] Intake, IV Titration 200 300 Amount Potassium Chloride 10 meq 200 In Water For Injection 1 100ml.bag @ 100 mls/hr IVPB Q1HR [facility] Rx#: [id number] Potassium Chloride 10 meq 100 In Water For Injection 1 100ml.bag @ 100 mls/hr IVPB Q1HR [facility] Rx#: [id number] Vancomycin 1,000 mg In 100 Sodium Chloride 0.9% 250 ml @ 125 mls/hr IVPB Q16H [facility] Rx#:[id number] levETIRAcetam IV 1,000 mg 100 In Saline 1 100ml.bag @ 400 mls/hr IVPB Q12HR [facility] Rx#:[id number] Output: Urine 640 640 140 Other: Voiding Method Indwelling Catheter Indwelling Catheter Indwelling Catheter Weight 59 kg 59 kg 09/11/21 04:28 09/11/21 04:28
[2021-09-11 11:14] LABS: Glucose,Whole Blood 195 mg/dL (75-99)
[2021-09-11 11:30] LABS: HCT 38.8 % (34.0-46.0); HGB 11.4 gm/dL (11.4-16.0); Hypochromasia Marked; MCH 31.1 pg (25.0-35.0); MCHC 29.4 g/dL (31.0-37.0); MCV 105.9 fL (80.0-100.0); Macrocytosis Moderate; Mean Platelet Volume 10.7; Platelet Count 111 k/uL (150-450); RBC 3.67 m/uL (3.80-5.40); RDW 13.5 % (11.5-15.5); WBC 9.9 k/uL (3.8-10.6)
[2021-09-11 11:51] LABS: Chloride 115 mmol/L (98-107)
[2021-09-11 11:54] LABS: African American GFR (CKD) >90 (>60 ml/min/1.73 sqM); Calcium 7.5 mg/dL (8.4-10.2); Glucose 222 mg/dL (74-99); Non-African American GFR(CKD) >90 (>60 ml/min/1.73 sqM)
[2021-09-11 11:55] LABS: Anion Gap 6 mmol/L; Blood Urea Nitrogen 29 mg/dL (7-17); Carbon Dioxide 24 mmol/L (22-30); Sodium 145 mmol/L (137-145)
[2021-09-11 12:23] LABS: Potassium 4.3 mmol/L (3.5-5.1)
[2021-09-11 17:08] LABS: African American GFR (CKD) >90 (>60 ml/min/1.73 sqM); Anion Gap 5 mmol/L; Blood Urea Nitrogen 24 mg/dL (7-17); Calcium 7.9 mg/dL (8.4-10.2); Carbon Dioxide 27 mmol/L (22-30); Chloride 112 mmol/L (98-107); Glucose 233 mg/dL (74-99); Non-African American GFR(CKD) >90 (>60 ml/min/1.73 sqM); Potassium 3.4 mmol/L (3.5-5.1); Sodium 144 mmol/L (137-145)
[2021-09-11] MEDS ORDERED: propofoL 100 ML IV ONE (17:10)
[2021-09-11] MEDS ORDERED: CISATRACURIUM 2 MG/ML 5 ML VIAL IV ONE ×2 (17:23→20:31)
--- NOTE | 2021-09-11 17:28 | XR ---
EXAMINATION TYPE: XR chest 1V DATE OF EXAM: 09/11/2021 5:10 PM COMPARISON:Chest radiographs from 09/10/2021. CLINICAL INDICATION:Female, 51 years old with history of desat, TECHNIQUE: Frontal view of the chest. FINDINGS: Lungs/Pleura: Interval near complete opacification of the left hemithorax with amount of small aerati on in the upper lobe seen. Right lung is relatively clear. No evidence of pneumothorax or pleural eff usion. Pulmonary vascularity: Unremarkable. Heart/mediastinum: Cardiomediastinal silhouette is unremarkable. Musculoskeletal: No acute osseous pathology. Other findings: Single-lead cardiac conduction device overlying the left hemithorax with lead projecting over the rig ht ventricle. IMPRESSION: Interval development of near complete opacification of the left lung new from one day prior, likely r esenting postobstructive cyst from mucous plugging and/or large pleural effusion.
[2021-09-11] MEDS ORDERED: NOREPINEPHRIN 4 MG-0.9% NS PMX 4 MG/250 ML ML IV ONE (17:48)
[2021-09-11 18:22] LABS: ABG Base Excess 2.4 mmol/L; ABG HCO3 26 mmol/L (21-25); ABG Oxygen Saturation 93.8 % (94-97); ABG PCO2 36 mmHg (35-45); ABG PH 7.47 (7.35-7.45); ABG PO2 79 mmHg (83-108); ABG TCO2 27 mmol/L (19-24)
--- NOTE | 2021-09-11 18:30 | P.PCN ---
Date of Procedure: 09/11/21 Preoperative Diagnosis: Acute hypoxic respiratory failure, acute left lung collapse Postoperative Diagnosis: Acute hypoxic respiratory failure, acute left lung collapse Procedure(s) Performed: Intubation Insertion of a central line Insertion of a arterial line Bronchoscopy and therapeutic it was suctioning and removal of mucus plug from the left mainstem and a BAL lavage of the left lower lobe. Anesthesia: LATOYAA Surgeon: Fernando Oviedo Estimated Blood Loss (ml): 0 Pathology: other Condition: critical Disposition: ICU Operative Findings: Intubation Indication: Respiratory compromise. A time-out was completed verifying correct patient, procedure, site, positioning, and implant(s) or special equipment if applicable. The patient was positioned appropriately and a #8 endotracheal tube was placed under direct laryngoscopy. The tube was anchored at 22 cm at the teeth. Correct placement was confirmed by presence of bilateral breath sounds without air sounds in the abdomen on auscultation. An end-tidal CO2 monitor was also used to confirm tracheal placement of the ET tube. A chest x-ray was ordered to assess for pneumothorax and verify endotracheal tube placement. The patient tolerated the procedure well and there were no complications. Arterial Line Indication: Hemodynamic monitoring. A time-out was completed verifying correct patient, procedure, site, positioning, and implant(s) or special equipment if applicable. Allens test was performed to ensure adequate perfusion. The patients right groin was prepped and draped in sterile fashion. 1% Lidocaine was used to anesthetize the area. An 18G Arrow arterial line was introduced into the right femoral artery. The catheter was threaded over the guide wire and the needle was removed with appropriate pulsatile blood return. Blood loss was minimal. The catheter was then sutured in place to the skin and a sterile dressing applied. Perfusion to the extremity distal to the point of catheter insertion was checked and found to be adequate. The patient tolerated the procedure well and there were no complications. Central line Indication: Hemodynamic monitoring/Intravenous access. A time-out was completed verifying correct patient, procedure, site, positioning, and implant(s) or special equipment if applicable. The patient was placed in a dependent position appropriate for central line placement based on the vein to be cannulated. The patients right groin was prepped and draped in sterile fashion. 1% Lidocaine was used to anesthetize the surrounding skin area. A triple lumen 9F Cordis catheter was introduced into the common femoral vein using Seldinger technique. The catheter was threaded smoothly over the guide wire and appropriate blood return was obtained. Each lumen of the catheter was evacuated of air and flushed with sterile saline. The catheter was then sutured in place to the skin and a sterile dressing applied. Perfusion to the extremity distal to the point of catheter insertion was checked and found to be adequate. The patient tolerated the procedure well and there were no complications. Bronchoscopy, BAL This procedure was done immediately after the patient was intubated. The patient was intubated by #8 orotracheal tube. The patient was already sedated and patient was given a dose of Nimbex for paralysis. Following that, an adapter was attached to the orotracheal tube. The flexible bronchoscope was easily passed through the ET tube into the distal trachea. The lower one third of the trachea was within normal limits. Velma was sharp. Examination of the right side was within normal limits. Right mainstem bronchus, right upper lobe bronchus, bronchus intermedius, right middle lobe bronchus and right lower lobe bronchus along with various segments on the right was patent and within normal limits. Bronchoscope was then moved to the left and there was a large mucous plug occupying and completely obstructed left main stem bronchus. Therapeutic suctioning was done. The mucous plug was found to extend to the left lower lobe and therapeutic suctioning was done and the mucous plug was removed in its entirety. There was copious respiratory secretions on the left involving the left lower lobe and the left upper lobe. Examination of the left without included the left mainstem bronchus, left upper lobe bronchus, left lower lobe bronchus and the various 10 segments on the left lung following that, a bronchioloalveolar lavage was done.. Bronchoscope was wedged into the lingular segment of the left lung and the bronchioloalveolar lavage was done with a total of 40 mL of fluid was infused and 20 mL was collected without any major difficulties. The procedure was completed. Bronchoscope was removed. Chest x- ray showed significant expansion of the left lung.
--- NOTE | 2021-09-11 18:39 | XR ---
EXAMINATION TYPE: XR chest 1V portable DATE OF EXAM: 09/11/2021 6:11 PM COMPARISON:Chest radiograph from one day prior. CLINICAL INDICATION:Female, 51 years old with history of intubation TECHNIQUE: Frontal view of the chest. FINDINGS: Lungs/Pleura: The left lung is now mostly aerated there is blunting of the left costophrenic angle. M ostly clear. No evidence of right pneumothorax or pleural effusion. Pulmonary vascularity: Unremarkable. Heart/mediastinum: Cardiomediastinal silhouette is unremarkable. Musculoskeletal: No acute osseous pathology. Other findings: Single-lead cardiac conduction device overlying the left hemithorax with lead projecting over the rig ht ventricle. Lines/Tubes: Endotracheal tube with distal tip 4.7 cm above the polo Nasogastric tube with its distal tip and side-port projecting under the diaphragm. IMPRESSION: Interval near complete aeration of the left lung with scattered airspace opacities suggested. Support lines and tubes in appropriate position. Small left pleural effusion.
[2021-09-11] MEDS: CLINDAMYCIN 600 MG in DEXTROSE 5% IN WATER 50 ML IVPB SCH ×2 (18:50)
[2021-09-11] MEDS: VANCOMYCIN 1,000 MG in SODIUM CHLORIDE 0.9% 250 ML IVPB SCH (18:50)
[2021-09-11] MEDS ORDERED: SODIUM CHLORIDE 0.9% 1,000 ML IV ONE (18:51)
[2021-09-11] MEDS ORDERED: SODIUM CHLORIDE 0.9% 1,000 ML IV SCH (19:00)
--- NOTE | 2021-09-11 19:48 | P.PN ---
Subjective This is a pleasant 51 years old female with past medical history of Coronary Artery Disease, Heart Failure, CVA/TIA, Pulmonary Embolus (PE), Seizure Disorder, Last seizure 2009, CVA 2007 with L sided weakness arm and leg and has L foot drop, TIA 2018, cardiomyopathy, R PE and pneumothorax/pneumonia following leg fracture in 1994, gestational diabetes with all pregnancies , bilateral glaucoma with surgery, psoriasis in the past, UTIs. She is a status post Pacemaker, history of Bilateral eye surgery for glaucoma, Anxiety, Depression, Current every day smoker Patient presents because of altered mental status. Information was limited from the patient. It was obtained from the chart and medical staff. Also as per family patient was able to go to the bathroom, was more lethargic and tired over the last day. While in the emergency room focal mild seizure is noticed On admission patient had and fever of 101. She is tachypneic at 26-40, tachycardic 110-140, also she is hypoxic saturating 72% on room air Labs showing WBC of 10.5, hemoglobin of 16.3, platelet count of 197. INR 1.7. Sodium 164, creatinine 1.7, lactic acid elevated 4.6. Liver enzymes elevated with AST 202 and ALT 81. Bilirubin is normal at 1.3. Urine analysis is highly suspicious of infection Urine drug screen is negative Cash versus positive Chest x-ray showing left perihilar and left lower lobe area of infiltrate and small effusion correlates for pneumonia CT of the brain without contrast showing no intracranial hemorrhage, evidence of remote ischemic change. However there is vague low attenuation near the left thalamus and left cerebral peduncle. Acute ischemia in the differential diagnosis. Recommend stat MRI of brain with MRSA ch[place]koot of [place] as clinically warranted. In the emergency room patient was started on aztreonam and IV vancomycin, Keppra and heparin drip 09/11/2021 Patient today was still in the ICU, she was very weak and obtunded, she will wake up to certain stabilized and moans, she does not follow commands she cannot, gait she moved both extremities symmetrically. R on she had collapse of her left lung cancer and she has to be intubated and repeat chest x-ray showing better. A of the left lung. She is tachypneic with a breathing rate 22, no more fever since yesterday. Her sodium improved down to 144 and she was started on normal saline, creatinine 1.1, Ejection fraction showed 30-35% which is slice worsened from 06/2021 where it was 35-40% She remains on dexamethasone, IV vancomycin and clindamycin, heparin drip, Keppra and normal saline at 75 mL/h Objective - Vital Signs Vital signs: Vital Signs Temp 96.7 F L 09/11/21 08:00 Pulse 71 09/11/21 11:00 Resp 29 H 09/11/21 11:00 BP 113/68 09/11/21 11:00 Pulse Ox 95 09/11/21 11:00 Intake & Output 09/10/21 09/11/21 09/11/21 18:59 06:59 18:59 Intake Total 100 2170 870 Output Total 500 880 180 Balance -400 1290 690 Weight 59 kg 59 kg Intake: IV 100 1670 870 Dextrose 5% in Water 1, 100 1670 470 000 ml @ 150 mls/hr IV . Q6H40M [facility] Rx#:[id number] Potassium Chloride 10 meq 300 In Water For Injection 1 100ml.bag @ 100 mls/hr IVPB Q1HR [facility] Rx#: [id number] levETIRAcetam IV 1,000 mg 100 In Saline 1 100ml.bag @ 400 mls/hr IVPB Q12HR [facility] Rx#:[id number] Intake, IV Titration 500 Amount Potassium Chloride 10 meq 200 In Water For Injection 1 100ml.bag @ 100 mls/hr IVPB Q1HR [facility] Rx#: [id number] Potassium Chloride 10 meq 100 In Water For Injection 1 100ml.bag @ 100 mls/hr IVPB Q1HR [facility] Rx#: [id number] Vancomycin 1,000 mg In 100 Sodium Chloride 0.9% 250 ml @ 125 mls/hr IVPB Q16H [facility] Rx#:[id number] levETIRAcetam IV 1,000 mg 100 In Saline 1 100ml.bag @ 400 mls/hr IVPB Q12HR [facility] Rx#:[id number] Output: Urine 500 880 180 Uretheral (Ambrocio) 100 Other: Voiding Method Indwelling Catheter Indwelling Catheter Indwelling Catheter - Exam -GENERAL: The patient is intubated and sedated HEENT: Pupils are round and equally reacting to light. EOMI. No scleral icterus. No conjunctival pallor. Normocephalic, atraumatic. No pharyngeal erythema. No thyromegaly. CARDIOVASCULAR: S1 and S2 present. No murmurs, rubs, or gallops. PULMONARY: Chest is clear to auscultation, no wheezing or crackles. ABDOMEN: Soft, nontender, nondistended, normoactive bowel sounds. No palpable organomegaly. MUSCULOSKELETAL: No joint swelling or deformity. EXTREMITIES: No cyanosis, clubbing, or pedal edema. NEUROLOGICAL: Gross neurological examination did not reveal any focal deficits. SKIN: No rashes. no petechiae. - Labs CBC & Chem 7: 09/11/21 11:14 09/11/21 16:32 Labs: Abnormal Lab Results - Last 24 Hours (Table) 09/10/21 09/10/21 09/10/21 Range/Units 11:39 11:39 11:39 RBC (3.80-5.40) m/uL Hgb 16.3 H D (11.4-16.0) gm/dL Hct 51.8 H (34.0-46.0) % MCV 101.8 H D (80.0-100.0) fL MCHC (31.0-37.0) g/dL Plt Count (150-450) k/uL Neutrophils # 9.4 H (1.3-7.7) k/uL Lymphocytes # 0.6 L (1.0-4.8) k/uL PT 16.7 H (9.0-12.0) sec INR 1.7 H (<1.2) APTT (22.0-30.0) sec D-Dimer (<0.60) mg/L FEU ABG pH (7.35-7.45) ABG pCO2 (35-45) mmHg ABG HCO3 (21-25) mmol/L ABG Total CO2 (19-24) mmol/L Sodium 164 H* (137-145) mmol/L Potassium (3.5-5.1) mmol/L Chloride 116 H (98-107) mmol/L BUN 63 H (7-17) mg/dL Creatinine 1.74 H (0.52-1.04) mg/dL Glucose 159 H (74-99) mg/dL POC Glucose (mg/dL) (75-99) mg/dL Plasma Lactic Acid Miles (0.7-2.0) mmol/L Calcium (8.4-10.2) mg/dL Magnesium (1.6-2.3) mg/dL AST 202 H (14-36) U/L ALT 81 H (4-34) U/L Lactate Dehydrogenase (313-618) U/L CK-MB (CK-2) (0.0-2.4) ng/mL Troponin I (0.000-0.034) ng/mL C-Reactive Protein (<1.0) mg/dL Total Protein (6.3-8.2) g/dL Albumin (3.5-5.0) g/dL Procalcitonin (0.02-0.09) ng/mL Urine Appearance (Clear) Urine Protein (Negative) Urine Glucose (UA) (Negative) Urine Blood (Negative) Ur Leukocyte Esterase (Negative) Urine RBC (0-5) /hpf Urine WBC (0-5) /hpf Ur Squamous Epith Cells (0-4) /hpf Urine Bacteria (None) /hpf Urine Mucus (None) /hpf Coronavirus (PCR) (Not Detectd) 09/10/21 09/10/21 09/10/21 Range/Units 11:39 11:39 11:46 RBC (3.80-5.40) m/uL Hgb (11.4-16.0) gm/dL Hct (34.0-46.0) % MCV (80.0-100.0) fL MCHC (31.0-37.0) g/dL Plt Count (150-450) k/uL Neutrophils # (1.3-7.7) k/uL Lymphocytes # (1.0-4.8) k/uL PT (9.0-12.0) sec INR (<1.2) APTT (22.0-30.0) sec D-Dimer (<0.60) mg/L FEU ABG pH (7.35-7.45) ABG pCO2 (35-45) mmHg ABG HCO3 (21-25) mmol/L ABG Total CO2 (19-24) mmol/L Sodium (137-145) mmol/L Potassium (3.5-5.1) mmol/L Chloride (98-107) mmol/L BUN (7-17) mg/dL Creatinine (0.52-1.04) mg/dL Glucose (74-99) mg/dL POC Glucose (mg/dL) (75-99) mg/dL Plasma Lactic Acid Miles 4.6 H* (0.7-2.0) mmol/L Calcium (8.4-10.2) mg/dL Magnesium (1.6-2.3) mg/dL AST (14-36) U/L ALT (4-34) U/L Lactate Dehydrogenase (313-618) U/L CK-MB (CK-2) (0.0-2.4) ng/mL Troponin I 0.331 H* (0.000-0.034) ng/mL C-Reactive Protein (<1.0) mg/dL Total Protein (6.3-8.2) g/dL Albumin (3.5-5.0) g/dL Procalcitonin (0.02-0.09) ng/mL Urine Appearance Turbid H (Clear) Urine Protein 3+ H (Negative) Urine Glucose (UA) Trace H (Negative) Urine Blood Large H (Negative) Ur Leukocyte Esterase Moderate H (Negative) Urine RBC >182 H (0-5) /hpf Urine WBC >182 H (0-5) /hpf Ur Squamous Epith Cells 24 H (0-4) /hpf Urine Bacteria Moderate H (None) /hpf Urine Mucus Moderate H (None) /hpf Coronavirus (PCR) (Not Detectd) 09/10/21 09/10/21 09/10/21 Range/Units 11:46 16:08 17:58 RBC (3.80-5.40) m/uL Hgb (11.4-16.0) gm/dL Hct (34.0-46.0) % MCV (80.0-100.0) fL MCHC (31.0-37.0) g/dL Plt Count (150-450) k/uL Neutrophils # (1.3-7.7) k/uL Lymphocytes # (1.0-4.8) k/uL PT (9.0-12.0) sec INR (<1.2) APTT (22.0-30.0) sec D-Dimer (<0.60) mg/L FEU ABG pH (7.35-7.45) ABG pCO2 (35-45) mmHg ABG HCO3 (21-25) mmol/L ABG Total CO2 (19-24) mmol/L Sodium (137-145) mmol/L Potassium (3.5-5.1) mmol/L Chloride (98-107) mmol/L BUN (7-17) mg/dL Creatinine (0.52-1.04) mg/dL Glucose (74-99) mg/dL POC Glucose (mg/dL) 187 H (75-99) mg/dL Plasma Lactic Acid Miles (0.7-2.0) mmol/L Calcium (8.4-10.2) mg/dL Magnesium (1.6-2.3) mg/dL AST (14-36) U/L ALT (4-34) U/L Lactate Dehydrogenase (313-618) U/L CK-MB (CK-2) (0.0-2.4) ng/mL Troponin I 0.268 H* (0.000-0.034) ng/mL C-Reactive Protein (<1.0) mg/dL Total Protein (6.3-8.2) g/dL Albumin (3.5-5.0) g/dL Procalcitonin (0.02-0.09) ng/mL Urine Appearance (Clear) Urine Protein (Negative) Urine Glucose (UA) (Negative) Urine Blood (Negative) Ur Leukocyte Esterase (Negative) Urine RBC (0-5) /hpf Urine WBC (0-5) /hpf Ur Squamous Epith Cells (0-4) /hpf Urine Bacteria (None) /hpf Urine Mucus (None) /hpf Coronavirus (PCR) Detected A (Not Detectd) 09/10/21 09/10/21 09/10/21 Range/Units 18:46 19:55 19:55 RBC (3.80-5.40) m/uL Hgb (11.4-16.0) gm/dL Hct (34.0-46.0) % MCV (80.0-100.0) fL MCHC (31.0-37.0) g/dL Plt Count (150-450) k/uL Neutrophils # (1.3-7.7) k/uL Lymphocytes # (1.0-4.8) k/uL PT (9.0-12.0) sec INR (<1.2) APTT 45.0 H (22.0-30.0) sec D-Dimer (<0.60) mg/L FEU ABG pH 7.34 L (7.35-7.45) ABG pCO2 52 H (35-45) mmHg ABG HCO3 28 H (21-25) mmol/L ABG Total CO2 29 H (19-24) mmol/L Sodium (137-145) mmol/L Potassium (3.5-5.1) mmol/L Chloride (98-107) mmol/L BUN (7-17) mg/dL Creatinine (0.52-1.04) mg/dL Glucose (74-99) mg/dL POC Glucose (mg/dL) (75-99) mg/dL Plasma Lactic Acid Miles (0.7-2.0) mmol/L Calcium (8.4-10.2) mg/dL Magnesium (1.6-2.3) mg/dL AST (14-36) U/L ALT (4-34) U/L Lactate Dehydrogenase (313-618) U/L CK-MB (CK-2) 5.7 H (0.0-2.4) ng/mL Troponin I 0.220 H* (0.000-0.034) ng/mL C-Reactive Protein (<1.0) mg/dL Total Protein (6.3-8.2) g/dL Albumin (3.5-5.0) g/dL Procalcitonin (0.02-0.09) ng/mL Urine Appearance (Clear) Urine Protein (Negative) Urine Glucose (UA) (Negative) Urine Blood (Negative) Ur Leukocyte Esterase (Negative) Urine RBC (0-5) /hpf Urine WBC (0-5) /hpf Ur Squamous Epith Cells (0-4) /hpf Urine Bacteria (None) /hpf Urine Mucus (None) /hpf Coronavirus (PCR) (Not Detectd) 09/10/21 09/10/21 09/10/21 Range/Units 19:55 19:55 23:55 RBC (3.80-5.40) m/uL Hgb (11.4-16.0) gm/dL Hct (34.0-46.0) % MCV (80.0-100.0) fL MCHC (31.0-37.0) g/dL Plt Count (150-450) k/uL Neutrophils # (1.3-7.7) k/uL Lymphocytes # (1.0-4.8) k/uL PT (9.0-12.0) sec INR (<1.2) APTT (22.0-30.0) sec D-Dimer (<0.60) mg/L FEU ABG pH (7.35-7.45) ABG pCO2 (35-45) mmHg ABG HCO3 (21-25) mmol/L ABG Total CO2 (19-24) mmol/L Sodium 156 H (137-145) mmol/L Potassium 3.2 L (3.5-5.1) mmol/L Chloride 121 H (98-107) mmol/L BUN 47 H (7-17) mg/dL Creatinine 1.10 H (0.52-1.04) mg/dL Glucose 271 H (74-99) mg/dL POC Glucose (mg/dL) 258 H (75-99) mg/dL Plasma Lactic Acid Miles (0.7-2.0) mmol/L Calcium 7.8 L (8.4-10.2) mg/dL Magnesium 2.8 H (1.6-2.3) mg/dL AST (14-36) U/L ALT (4-34) U/L Lactate Dehydrogenase (313-618) U/L CK-MB (CK-2) (0.0-2.4) ng/mL Troponin I (0.000-0.034) ng/mL C-Reactive Protein (<1.0) mg/dL Total Protein (6.3-8.2) g/dL Albumin (3.5-5.0) g/dL Procalcitonin (0.02-0.09) ng/mL Urine Appearance (Clear) Urine Protein (Negative) Urine Glucose (UA) (Negative) Urine Blood (Negative) Ur Leukocyte Esterase (Negative) Urine RBC (0-5) /hpf Urine WBC (0-5) /hpf Ur Squamous Epith Cells (0-4) /hpf Urine Bacteria (None) /hpf Urine Mucus (None) /hpf Coronavirus (PCR) (Not Detectd) 09/11/21 09/11/21 09/11/21 Range/Units 00:11 04:28 04:28 RBC (3.80-5.40) m/uL Hgb (11.4-16.0) gm/dL Hct (34.0-46.0) % MCV (80.0-100.0) fL MCHC (31.0-37.0) g/dL Plt Count (150-450) k/uL Neutrophils # (1.3-7.7) k/uL Lymphocytes # (1.0-4.8) k/uL PT 20.3 H (9.0-12.0) sec INR 2.1 H (<1.2) APTT 51.3 H (22.0-30.0) sec D-Dimer 0.75 H (<0.60) mg/L FEU ABG pH (7.35-7.45) ABG pCO2 (35-45) mmHg ABG HCO3 (21-25) mmol/L ABG Total CO2 (19-24) mmol/L Sodium 153 H 150 H (137-145) mmol/L Potassium 3.3 L (3.5-5.1) mmol/L Chloride 122 H 116 H (98-107) mmol/L BUN 41 H 36 H (7-17) mg/dL Creatinine (0.52-1.04) mg/dL Glucose 298 H 268 H (74-99) mg/dL POC Glucose (mg/dL) (75-99) mg/dL Plasma Lactic Acid Miles (0.7-2.0) mmol/L Calcium 7.5 L (8.4-10.2) mg/dL Magnesium (1.6-2.3) mg/dL AST 142 H (14-36) U/L ALT 55 H (4-34) U/L Lactate Dehydrogenase 1505 H (313-618) U/L CK-MB (CK-2) (0.0-2.4) ng/mL Troponin I (0.000-0.034) ng/mL C-Reactive Protein 20.5 H (<1.0) mg/dL Total Protein 5.7 L (6.3-8.2) g/dL Albumin 2.7 L (3.5-5.0) g/dL Procalcitonin (0.02-0.09) ng/mL Urine Appearance (Clear) Urine Protein (Negative) Urine Glucose (UA) (Negative) Urine Blood (Negative) Ur Leukocyte Esterase (Negative) Urine RBC (0-5) /hpf Urine WBC (0-5) /hpf Ur Squamous Epith Cells (0-4) /hpf Urine Bacteria (None) /hpf Urine Mucus (None) /hpf Coronavirus (PCR) (Not Detectd) 09/11/21 09/11/21 09/11/21 Range/Units 04:28 04:28 06:04 RBC (3.80-5.40) m/uL Hgb (11.4-16.0) gm/dL Hct (34.0-46.0) % MCV 104.1 H (80.0-100.0) fL MCHC 30.3 L (31.0-37.0) g/dL Plt Count 138 L (150-450) k/uL Neutrophils # 8.1 H (1.3-7.7) k/uL Lymphocytes # 0.5 L (1.0-4.8) k/uL PT (9.0-12.0) sec INR (<1.2) APTT (22.0-30.0) sec D-Dimer (<0.60) mg/L FEU ABG pH (7.35-7.45) ABG pCO2 (35-45) mmHg ABG HCO3 (21-25) mmol/L ABG Total CO2 (19-24) mmol/L Sodium (137-145) mmol/L Potassium (3.5-5.1) mmol/L Chloride (98-107) mmol/L BUN (7-17) mg/dL Creatinine (0.52-1.04) mg/dL Glucose (74-99) mg/dL POC Glucose (mg/dL) 221 H (75-99) mg/dL Plasma Lactic Acid Miles (0.7-2.0) mmol/L Calcium (8.4-10.2) mg/dL Magnesium (1.6-2.3) mg/dL AST (14-36) U/L ALT (4-34) U/L Lactate Dehydrogenase (313-618) U/L CK-MB (CK-2) (0.0-2.4) ng/mL Troponin I (0.000-0.034) ng/mL C-Reactive Protein (<1.0) mg/dL Total Protein (6.3-8.2) g/dL Albumin (3.5-5.0) g/dL Procalcitonin 0.33 H (0.02-0.09) ng/mL Urine Appearance (Clear) Urine Protein (Negative) Urine Glucose (UA) (Negative) Urine Blood (Negative) Ur Leukocyte Esterase (Negative) Urine RBC (0-5) /hpf Urine WBC (0-5) /hpf Ur Squamous Epith Cells (0-4) /hpf Urine Bacteria (None) /hpf Urine Mucus (None) /hpf Coronavirus (PCR) (Not Detectd) 09/11/21 09/11/21 Range/Units 11:12 11:14 RBC 3.67 L (3.80-5.40) m/uL Hgb (11.4-16.0) gm/dL Hct (34.0-46.0) % MCV 105.9 H (80.0-100.0) fL MCHC 29.4 L (31.0-37.0) g/dL Plt Count 111 L (150-450) k/uL Neutrophils # (1.3-7.7) k/uL Lymphocytes # (1.0-4.8) k/uL PT (9.0-12.0) sec INR (<1.2) APTT (22.0-30.0) sec D-Dimer (<0.60) mg/L FEU ABG pH (7.35-7.45) ABG pCO2 (35-45) mmHg ABG HCO3 (21-25) mmol/L ABG Total CO2 (19-24) mmol/L Sodium (137-145) mmol/L Potassium (3.5-5.1) mmol/L Chloride (98-107) mmol/L BUN (7-17) mg/dL Creatinine (0.52-1.04) mg/dL Glucose (74-99) mg/dL POC Glucose (mg/dL) 195 H (75-99) mg/dL Plasma Lactic Acid Miles (0.7-2.0) mmol/L Calcium (8.4-10.2) mg/dL Magnesium (1.6-2.3) mg/dL AST (14-36) U/L ALT (4-34) U/L Lactate Dehydrogenase (313-618) U/L CK-MB (CK-2) (0.0-2.4) ng/mL Troponin I (0.000-0.034) ng/mL C-Reactive Protein (<1.0) mg/dL Total Protein (6.3-8.2) g/dL Albumin (3.5-5.0) g/dL Procalcitonin (0.02-0.09) ng/mL Urine Appearance (Clear) Urine Protein (Negative) Urine Glucose (UA) (Negative) Urine Blood (Negative) Ur Leukocyte Esterase (Negative) Urine RBC (0-5) /hpf Urine WBC (0-5) /hpf Ur Squamous Epith Cells (0-4) /hpf Urine Bacteria (None) /hpf Urine Mucus (None) /hpf Coronavirus (PCR) (Not Detectd) Microbiology - Last 24 Hours (Table) 09/10/21 11:46 Urine Culture - Preliminary Urine,Clean Catch Assessment and Plan Assessment: Altered mental status could be metabolic/toxic encephalopathy, rule out other intracranial lesions, seizure Left lower lobe pneumonia, rule out aspiration pneumonia Sepsis secondary to UTI and pneumonia Acute stroke is suspected with new focus at the left thalamus and left cerebral peduncle Bilateral Covid pneumonia Acute hypoxic respiratory failure Increased inflammatory markers elevated troponin, most likely type II ischemia. Rule out primary cardiac causes Hypernatremia Acute kidney injury Mild elevated liver enzymes History of coronary artery disease History of pulmonary embolism History of seizure disorder, last seizure was in 2009 as per documents History 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 left foot drop History of glaucoma status post surgery Status post permanent pacemaker Nicotine dependence Plan: This is a pleasant 51 years old female who presents with altered mental status, pneumonia, UTI, possible stroke, seizure and possible covid pneumonia Continue with Keppra and neurology consult. EEG and MRI to be considered MRI of the brain is recommended however I'm not sure if her clinical condition allow doing test, we'll defer this to neurology and pulmonary/critical care team pulmonary consult, continue the broad-spectrum antibiotics with clindamycin and vancomycin. Follow-up sputum and blood and urine culture Continue with dexamethasone Continue with vitamin C, vitamin D and zinc Pulmonary consult /critical care team consult Cardiology team consult for elevated troponin, patient does not have A. 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 Continue same treatment. Continue with symptomatic treatment. Resume home medication. Monitor lytes and vitals. DVT and GI prophylaxis. Further recommendations depends on the clinical course of the patient DVT prophylaxis: heparin GI Prophylaxis: Pepcid PT/OT: n/a Prognosis is guarded
[2021-09-11 20:01] LABS: ABG Base Excess 2.3 mmol/L; ABG HCO3 26 mmol/L (21-25); ABG Oxygen Saturation 78.1 % (94-97); ABG PCO2 38 mmHg (35-45); ABG PH 7.45 (7.35-7.45); ABG TCO2 27 mmol/L (19-24); Allen Test Performed? Yes
[2021-09-11 20:15] LABS: ABG PO2 45 mmHg (83-108)
[2021-09-11] MEDS: CISATRACURIUM 200 MG in SODIUM CHLORIDE 0.9% 180 ML IV SCH (20:45)
--- NOTE | 2021-09-11 20:45 | XR ---
EXAMINATION TYPE: XR chest 1V DATE OF EXAM: 09/11/2021 8:23 PM COMPARISON:Chest radiograph from same day. CLINICAL INDICATION:Female, 51 years old with history of desat; TECHNIQUE: Frontal view of the chest. FINDINGS: Lungs/Pleura: Persistent aeration of the left lung with small left pleural effusion identified. There remains airspace opacities within the left lung. Pulmonary vascularity: Unremarkable. Heart/mediastinum: Cardiomediastinal silhouette is unremarkable. Musculoskeletal: No acute osseous pathology. Other findings: Single-lead cardiac conduction device overlying the left hemithorax with lead projecting over the rig ht ventricle. Lines/Tubes: Endotracheal tube with distal tip 4.2 cm above the polo Nasogastric tube with its distal tip and side-port projecting under the diaphragm. IMPRESSION: 1. Support tubes in appropriate position. 2. Prominently left-sided airspace opacities with near full aeration of the left lung. 3. Small left pleural effusion.
--- NOTE | 2021-09-11 20:47 | EEG ---
ELECTROENCEPHALOGRAM REPORT DATE OF SERVICE: 09/11/2021. PREAMBLE: The patient is a 51-year-old female with history of seizure disorder, came with altered mental status. This study is performed to evaluate for any epileptiform activity. EEG FINDINGS: This is a 21 channel digital EEG recording with video component utilizing 10/20 international system with referential and bipolar montages. The background consists of well-developed, but poorly regulated, mixed frequencies of 2 hertz delta, intermixed with 4-6 hertz theta activity seen in bihemispheric region. Background does not seem to be reactive to eye opening and closing. Photic stimulation was not performed. During the later half of the study, some relatively better background, with more frequent theta, less frequent delta was seen. However, the background continues to be nonreactive. Different stages of sleep were not seen. No definitive focal or generalized epileptiform activity was seen. IMPRESSION: This is an abnormal EEG due to background slowing of at least moderate degree. This is suggestive of generalized cerebral dysfunction as can be seen in toxic metabolic encephalopathy or due to diffuse structural brain abnormality. EKG channel showed arrhythmia. Correlate clinically. MMODL / IJN: [id number] /
[2021-09-11 21:03] LABS: ABG Base Excess 0.5 mmol/L; ABG HCO3 27 mmol/L (21-25); ABG Oxygen Saturation 91.9 % (94-97); ABG PCO2 56 mmHg (35-45); ABG PH 7.29 (7.35-7.45); ABG PO2 82 mmHg (83-108); ABG TCO2 29 mmol/L (19-24); Allen Test Performed? Yes
[2021-09-11] MEDS: ATORVASTATIN 80 MG TAB PO SCH (21:46)
[2021-09-11] MEDS: POTASSIUM BICARBONATE/CIT AC 20 MEQ TABLET.EFF NG-TUBE SCH (21:46)
[2021-09-11] MEDS: CHLORHEXIDINE GLUCONATE 15 ML CUP MUCOUS MEM SCH (21:46)
[2021-09-12] MEDS: POTASSIUM BICARBONATE/CIT AC 20 MEQ TABLET.EFF NG-TUBE SCH (00:02)
[2021-09-12] MEDS: carBAMazepine 200 MG TAB PO SCH ×4 (00:30→22:43)
--- NOTE | 2021-09-12 00:41 | P.PN ---
Subjective Progress Note Date: 09/11/21 Patient was seen for a follow-up. Patient is doing much better. She has started to wake up. No further seizures reported. Patient is laying comfortably in the bed. Objective - Vital Signs Vital signs: Vital Signs Temp 98.5 F 09/11/21 20:30 Pulse 113 H 09/12/21 00:00 Resp 29 H 09/12/21 00:00 BP 99/48 09/12/21 00:00 Pulse Ox 96 09/12/21 00:00 Intake & Output 09/11/21 09/11/21 09/12/21 06:59 18:59 06:59 Intake Total 2170 3395 650.0 Output Total 880 1070 415 Balance 1290 2325 235.0 Weight 59 kg Intake: IV 1670 3395 650.0 Aztreonam 2 gm In Sodium 100 100.0 Chloride 0.9% 100 ml @ 33 .333 mls/hr IVPB Q8H [facility] Rx#:[id number] Clindamycin 600 mg In 50 Dextrose 5% in Water 50 ml @ 50 mls/hr IVPB Q8H [facility] Rx#:[id number] Dextrose 5% in Water 1, 1670 1520 000 ml @ 150 mls/hr IV . Q6H40M ONE Rx#:[id number] Potassium Chloride 10 meq 300 In Water For Injection 1 100ml.bag @ 100 mls/hr IVPB Q1HR [facility] Rx#: [id number] Sodium Chloride 0.9% 1, 75 450 000 ml @ 75 mls/hr IV . [id number] [facility] Rx#:[id number] Sodium Chloride 0.9% 1, 1000 000 ml @ 999 mls/hr IV . Q1H1M ONE Rx#:[id number] Vancomycin 1,000 mg In 250 Sodium Chloride 0.9% 250 ml @ 125 mls/hr IVPB Q12H [facility] Rx#:[id number] levETIRAcetam IV 1,000 mg 100 100 In Saline 1 100ml.bag @ 400 mls/hr IVPB Q12HR [facility] Rx#:[id number] Intake, IV Titration 500 Amount Potassium Chloride 10 meq 200 In Water For Injection 1 100ml.bag @ 100 mls/hr IVPB Q1HR [facility] Rx#: [id number] Potassium Chloride 10 meq 100 In Water For Injection 1 100ml.bag @ 100 mls/hr IVPB Q1HR [facility] Rx#: [id number] Vancomycin 1,000 mg In 100 Sodium Chloride 0.9% 250 ml @ 125 mls/hr IVPB Q16H [facility] Rx#:[id number] levETIRAcetam IV 1,000 mg 100 In Saline 1 100ml.bag @ 400 mls/hr IVPB Q12HR [facility] Rx#:[id number] Output: Urine 880 1070 415 Other: Voiding Method Indwelling Catheter Indwelling Catheter ABP, PAP, CO, CI - Last Documented Arterial Blood Pressure 119/59 - Exam Patient is much more alert and awake. She is trying to speak, but mumbling. Her mouth is dry. Examination reveals old left hemiparesis. She is moving right side better. - Labs CBC & Chem 7: 09/11/21 11:14 09/11/21 16:32 Labs: Abnormal Lab Results - Last 24 Hours (Table) 09/11/21 09/11/21 09/11/21 Range/Units 00:11 04:28 04:28 RBC (3.80-5.40) m/uL MCV (80.0-100.0) fL MCHC (31.0-37.0) g/dL Plt Count (150-450) k/uL Neutrophils # (1.3-7.7) k/uL Lymphocytes # (1.0-4.8) k/uL PT 20.3 H (9.0-12.0) sec INR 2.1 H (<1.2) APTT 51.3 H (22.0-30.0) sec D-Dimer 0.75 H (<0.60) mg/L FEU ABG pH (7.35-7.45) ABG pCO2 (35-45) mmHg ABG pO2 (83-108) mmHg ABG HCO3 (21-25) mmol/L ABG Total CO2 (19-24) mmol/L ABG O2 Saturation (94-97) % Sodium 153 H 150 H (137-145) mmol/L Potassium 3.3 L (3.5-5.1) mmol/L Chloride 122 H 116 H (98-107) mmol/L BUN 41 H 36 H (7-17) mg/dL Glucose 298 H 268 H (74-99) mg/dL POC Glucose (mg/dL) (75-99) mg/dL Calcium 7.5 L (8.4-10.2) mg/dL AST 142 H (14-36) U/L ALT 55 H (4-34) U/L Lactate Dehydrogenase 1505 H (313-618) U/L C-Reactive Protein 20.5 H (<1.0) mg/dL Total Protein 5.7 L (6.3-8.2) g/dL Albumin 2.7 L (3.5-5.0) g/dL Procalcitonin (0.02-0.09) ng/mL 09/11/21 09/11/21 09/11/21 Range/Units 04:28 04:28 06:04 RBC (3.80-5.40) m/uL MCV 104.1 H (80.0-100.0) fL MCHC 30.3 L (31.0-37.0) g/dL Plt Count 138 L (150-450) k/uL Neutrophils # 8.1 H (1.3-7.7) k/uL Lymphocytes # 0.5 L (1.0-4.8) k/uL PT (9.0-12.0) sec INR (<1.2) APTT (22.0-30.0) sec D-Dimer (<0.60) mg/L FEU ABG pH (7.35-7.45) ABG pCO2 (35-45) mmHg ABG pO2 (83-108) mmHg ABG HCO3 (21-25) mmol/L ABG Total CO2 (19-24) mmol/L ABG O2 Saturation (94-97) % Sodium (137-145) mmol/L Potassium (3.5-5.1) mmol/L Chloride (98-107) mmol/L BUN (7-17) mg/dL Glucose (74-99) mg/dL POC Glucose (mg/dL) 221 H (75-99) mg/dL Calcium (8.4-10.2) mg/dL AST (14-36) U/L ALT (4-34) U/L Lactate Dehydrogenase (313-618) U/L C-Reactive Protein (<1.0) mg/dL Total Protein (6.3-8.2) g/dL Albumin (3.5-5.0) g/dL Procalcitonin 0.33 H (0.02-0.09) ng/mL 09/11/21 09/11/21 09/11/21 Range/Units 11:12 11:14 11:14 RBC 3.67 L (3.80-5.40) m/uL MCV 105.9 H (80.0-100.0) fL MCHC 29.4 L (31.0-37.0) g/dL Plt Count 111 L (150-450) k/uL Neutrophils # (1.3-7.7) k/uL Lymphocytes # (1.0-4.8) k/uL PT (9.0-12.0) sec INR (<1.2) APTT (22.0-30.0) sec D-Dimer (<0.60) mg/L FEU ABG pH (7.35-7.45) ABG pCO2 (35-45) mmHg ABG pO2 (83-108) mmHg ABG HCO3 (21-25) mmol/L ABG Total CO2 (19-24) mmol/L ABG O2 Saturation (94-97) % Sodium (137-145) mmol/L Potassium (3.5-5.1) mmol/L Chloride 115 H (98-107) mmol/L BUN 29 H (7-17) mg/dL Glucose 222 H (74-99) mg/dL POC Glucose (mg/dL) 195 H (75-99) mg/dL Calcium 7.5 L (8.4-10.2) mg/dL AST (14-36) U/L ALT (4-34) U/L Lactate Dehydrogenase (313-618) U/L C-Reactive Protein (<1.0) mg/dL Total Protein (6.3-8.2) g/dL Albumin (3.5-5.0) g/dL Procalcitonin (0.02-0.09) ng/mL 09/11/21 09/11/21 09/11/21 Range/Units 16:32 18:20 19:58 RBC (3.80-5.40) m/uL MCV (80.0-100.0) fL MCHC (31.0-37.0) g/dL Plt Count (150-450) k/uL Neutrophils # (1.3-7.7) k/uL Lymphocytes # (1.0-4.8) k/uL PT (9.0-12.0) sec INR (<1.2) APTT (22.0-30.0) sec D-Dimer (<0.60) mg/L FEU ABG pH 7.47 H (7.35-7.45) ABG pCO2 (35-45) mmHg ABG pO2 79 L 45 L* (83-108) mmHg ABG HCO3 26 H 26 H (21-25) mmol/L ABG Total CO2 27 H 27 H (19-24) mmol/L ABG O2 Saturation 93.8 L 78.1 L (94-97) % Sodium (137-145) mmol/L Potassium 3.4 L (3.5-5.1) mmol/L Chloride 112 H (98-107) mmol/L BUN 24 H (7-17) mg/dL Glucose 233 H (74-99) mg/dL POC Glucose (mg/dL) (75-99) mg/dL Calcium 7.9 L (8.4-10.2) mg/dL AST (14-36) U/L ALT (4-34) U/L Lactate Dehydrogenase (313-618) U/L C-Reactive Protein (<1.0) mg/dL Total Protein (6.3-8.2) g/dL Albumin (3.5-5.0) g/dL Procalcitonin (0.02-0.09) ng/mL 09/11/21 Range/Units 20:59 RBC (3.80-5.40) m/uL MCV (80.0-100.0) fL MCHC (31.0-37.0) g/dL Plt Count (150-450) k/uL Neutrophils # (1.3-7.7) k/uL Lymphocytes # (1.0-4.8) k/uL PT (9.0-12.0) sec INR (<1.2) APTT (22.0-30.0) sec D-Dimer (<0.60) mg/L FEU ABG pH 7.29 L (7.35-7.45) ABG pCO2 56 H (35-45) mmHg ABG pO2 82 L (83-108) mmHg ABG HCO3 27 H (21-25) mmol/L ABG Total CO2 29 H (19-24) mmol/L ABG O2 Saturation 91.9 L (94-97) % Sodium (137-145) mmol/L Potassium (3.5-5.1) mmol/L Chloride (98-107) mmol/L BUN (7-17) mg/dL Glucose (74-99) mg/dL POC Glucose (mg/dL) (75-99) mg/dL Calcium (8.4-10.2) mg/dL AST (14-36) U/L ALT (4-34) U/L Lactate Dehydrogenase (313-618) U/L C-Reactive Protein (<1.0) mg/dL Total Protein (6.3-8.2) g/dL Albumin (3.5-5.0) g/dL Procalcitonin (0.02-0.09) ng/mL Microbiology - Last 24 Hours (Table) 09/10/21 12:45 Blood Culture - Preliminary Blood No Growth after 24 hours 09/10/21 13:03 Blood Culture - Preliminary Blood No Growth after 24 hours 09/10/21 11:46 Urine Culture - Preliminary Urine,Clean Catch Assessment and Plan Assessment: * Altered mental status, likely due to toxic metabolic encephalopathy, postictal state and medication effect (received Ativan 6 mg IV in the ER). Causes multifactorial as mentioned below. * Breakthrough seizure, likely due to multiple metabolic derangements. Patient had seizure disorder for long time, seizures in remission since 2009. * Acute Covid-19 infection with pneumonia. * Probable acute UTI. 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 * History of pacemaker. Plan: * Patient's clinical condition has stabilized. She is much more alert and awake. * Patient's blood test shows Tegretol level <3.0, Keppra and Neurontin level pending. * Resume Tegretol 200 mg 3 times a day * As patient's renal functions are back to normal, we will resume Keppra 1500 mg twice a day. * EEG was performed, which revealed background slowing of at least moderate degree. This is suggestive of generalized cerebral dysfunction as can be seen with toxic metabolic encephalopathy or due to diffuse structural brain abnormality or postictal effect. No epileptiform activity was seen. * Resume anticoagulation with Eliquis as early as possible. Cardiology also on board. * Other medical management as per IM, critical care. * Cardiology has been consulted for elevated cardiac enzymes. * Patient started on vancomycin and aztreonam. * Dr. Wong Will resume neurology service from the morning. Please call neurology if any concerns.
[2021-09-12 01:04] LABS: Glucose,Whole Blood 127 mg/dL (75-99)
[2021-09-12] MEDS: INSULIN ASPART (NovoLOG) 100 UNIT/ML VIAL SQ SCH ×4 (01:36→18:54)
[2021-09-12] MEDS: CLINDAMYCIN 600 MG in DEXTROSE 5% IN WATER 50 ML IVPB SCH ×6 (01:37→18:54)
[2021-09-12 04:37] LABS: HGB 12.8 gm/dL (11.4-16.0); Hypochromasia Marked; MCH 31.3 pg (25.0-35.0); MCHC 29.8 g/dL (31.0-37.0); MCV 105.2 fL (80.0-100.0); Macrocytosis Slight; Mean Platelet Volume 10.4; RBC 4.09 m/uL (3.80-5.40); RDW 13.2 % (11.5-15.5); WBC 16.5 k/uL (3.8-10.6)
[2021-09-12 04:41] LABS: Platelet Count 170 k/uL (150-450)
[2021-09-12 04:48] LABS: African American GFR (CKD) >90 (>60 ml/min/1.73 sqM); Blood Urea Nitrogen 23 mg/dL (7-17); Carbon Dioxide 29 mmol/L (22-30); Chloride 111 mmol/L (98-107); Non-African American GFR(CKD) >90 (>60 ml/min/1.73 sqM)
[2021-09-12 04:49] LABS: Glucose 158 mg/dL (74-99)
[2021-09-12 04:50] LABS: Anion Gap 6 mmol/L; Calcium 7.8 mg/dL (8.4-10.2); Potassium 4.8 mmol/L (3.5-5.1); Sodium 146 mmol/L (137-145)
[2021-09-12] MEDS: AZTREONAM 2 GM in SODIUM CHLORIDE 0.9% 100 ML IVPB SCH (04:58)
[2021-09-12] MEDS: VANCOMYCIN 1,000 MG in SODIUM CHLORIDE 0.9% 250 ML IVPB SCH (04:58)
[2021-09-12 05:43] LABS: Band Neutrophils % 15 %; Neutrophils % (M) 82 %; Nucleated Red Blood Cells 0 /100 WBC (0-0); Total Cells Counted 100
[2021-09-12 05:44] LABS: ABG Base Excess 1.9 mmol/L; ABG HCO3 31 mmol/L (21-25); ABG Oxygen Saturation 97.3 % (94-97); ABG PO2 174 mmHg (83-108); ABG TCO2 33 mmol/L (19-24)
[2021-09-12 05:46] LABS: ABG PH 7.17 (7.35-7.45)
[2021-09-12 05:47] LABS: ABG PCO2 83 mmHg (35-45); Allen Test Performed? no
[2021-09-12 06:29] LABS: Glucose,Whole Blood 138 mg/dL (75-99)
--- NOTE | 2021-09-12 06:29 | XR ---
EXAMINATION TYPE: XR chest 1V portable DATE OF EXAM: 09/12/2021 COMPARISON: 09/11/2021 HISTORY: Shortness of breath and tube placement TECHNIQUE: Single frontal view of the chest is obtained. FINDINGS: There is an ET tube 5.9 cm above the polo. There is a single lead cardiac pacemaker unch anged in addition. There is mild partially consolidative opacity in the left mid and lower lung zones which has improved mildly in the interval. The right lung remains clear. No pneumothorax or large pleural effusion. The heart size is normal and the vasculature is not congested. The osseous structures are intact. IMPRESSION: Mild interval improvement in the left lung infiltrate. The right lung is clear. ET tube is 5.9 cm above the polo.
--- NOTE | 2021-09-12 07:40 | P.PN ---
Subjective Progress Note Date: 09/12/21 This is a 51-year-old female patient was brought into because of an altered mental status. The patient was found by her brother was concerned about her mental status. The patient has poor baseline performance and functional status and more recently she wasn't able to take care of herself. She was feeling more lethargic and tired and based on all this, she was brought into the emergency department. In the ED, the patient was having seizures and tachycardia and she was altered and unresponsive. The patient was given IV Ativan. At the time of my evaluation, the patient was quite sedated. No tracheal evidence of a seizure activity and the patient was withdrawing and 4 extremities without any l imitation. The patient furthermore was found to have significant abnormalities in her blood work. The patient also tested positive for COVID 19. In summary, the patient was found to have a sodium level LXIV, chloride of 116, FiO2 of 4.6, troponin of 0.3, and UA was abnormal highly suspicious for underlying urine checked infection. Urine drug screen was negative. At this point in time, the patient on IV fluids and the patient is receiving D5 water at the rate of 100 mL an hour. The patient was given a combination of vancomycin and aztreonam as empiric antibiotic coverage. The patient was also started on Decadron 6 mg IV every 12 hours. Chest x-ray showing a left perihilar and lower lobe pulmonary infiltration and the patient is currently on 6 L of oxygen by nasal cannula with a pulse of a 98%. She is in sinus tachycardia. Nevertheless, she has history of atrial fibrillation. She has been minimal, to coagulation with Eliquis and she was also taken amiodarone on outpatient basis. She is also known to have cardiomyopathy with an ejection fraction of 30-35%. On regular inspection, the patient looks quite debilitated. She has a body mass index of 19.7. Very poor oral hygiene and multiple decayed teeth. Her personal hygiene is also poor. 09/11/2021, the patient is being seen in follow-up in the intensive care units. No seizure activity overnight. The patient is being given D5 water at the rate of 150 mL an hour. The sodium level is improved and is currently down to 150. Neurologically, limited more interactive compared to yesterday. She opens her eyes. She mumbles. Nevertheless, she cannot hold a conversation and she cannot follow any commands at this point in time. She looks extremely emaciated, debilitated on inspection. Meanwhile, the patient was suspected to have UTI. She was placed on a combination of aztreonam and vancomycin as an empiric antibiotic coverage. She was started on IV Keppra regarding her seizure activity and previous history of epilepsy. She is also on Decadron 6 mg IV regarding over 19 infection. On today's blood work, the sodium level is down to 150, chloride level is down to 116, acute kidney injury is improving and the creatinine is down to 0.8 and has normalized, urine output is improved, the LDH level is 1505 and a CRP level is at 20.5 and this is consistent with: 19 infection. White cell count is at 8.8 with a hemoglobin of 12.3 and a platelet count of 138. The chest x-ray from yesterday was noted. The follow-up chest x- ray was not done today. Neurology consulted on this patient. She is noted to b e coagulopathic and the patient was taken Eliquis on outpatient basis regarding previous history of chronic atrial fibrillation. Her current cardiac rhythm is sinus for now. She is known to have cardiomyopathy with an ejection fraction of 30-35% based on a previous echocardiogram. 09/12/2021, the patient is intubated and mechanically ventilated. Note that by late afternoon yesterday, the patient acutely became hypoxic. She was placed on high flow oxygen. The chest x-ray was done that showed complete collapse of the left lung. At that point, the patient was intubated and placed on a mechanical ventilator. Post intubation, she underwent a bronchoscopy and large mucous plugs were aspirated from the left lung. Bronchial lavage of the left lower lobe was done. Overnight, but continued having difficulties with her oxygenation. Based on that, the patient was sedated and paralyzed. The patient is currently on Prempro before running at 50 mcg/kg per minute and index is running at 1.5 mcg/kg per minute. She is fully sedated and paralyzed and index was brought up to 2 mcg/kg per minute. She is on a mechanical ventilator. At this point in time she is on a tidal volume of 300, rate of 28, FiO2 of 100% with a PEEP of 20. Pulse expiratory improved and she is up to 97%. Meanwhile, the blood gases from today shows a pH of 7.17 with a pCO2 of 83 and pO2 of 147. CPeak airway pressures around 37 on a mechanical ventilator. The chest x-ray from today shows reexpansion of the left lung. Is a left perihilar/left lower lobe pulmonary infiltrate. ET tube is in a good location. Meanwhile, the patient's white cell count is up to 16.5. Hemoglobin was at 12.8 with a platelet counts of 170. The patient was placed on a combination of antibiotics patient is currently on a combination of aztreonam and vancomycin. Clindamycin was also added yesterday concerning possibility of an underlying aspiration. Note that the patient presented to us with Covid 19 infection. She was also profoundly dehydrated and hypernatremic. Hyper natremia improved. On her blood work from today, the patient's sodium level is down to 146 with a potassium level of 4.8. The D5 water infusion has recovered removed. Also, her renal function is also normalized and the creatinine is down to 0.65. In terms of inflammatory markers, her LDH level was 1505 and a CRP level was at 20.5. Her pro-calcitonin level was at 0.33. Cultures for now are all negative. Blood cultures show no growth. Urine culture is still pending. Bronchioloalveolar lavage was also sent for microbial analysis. Objective - Vital Signs Vital signs: Vital Signs Temp 98.1 F 09/12/21 04:00 Pulse 112 H 09/12/21 07:00 Resp 28 H 09/12/21 07:00 BP 104/78 09/12/21 07:00 Pulse Ox 97 09/12/21 07:00 Intake & Output 09/11/21 09/12/21 09/12/21 18:59 06:59 18:59 Intake Total 3395 1472.025 233.3 Output Total 1070 695 30 Balance 2325 777.025 203.3 Weight 60.2 kg Intake: IV 3395 1308.3 233.3 Aztreonam 2 gm In Sodium 100 133.3 33.3 Chloride 0.9% 100 ml @ 33 .333 mls/hr IVPB Q8H [facility] Rx#:[id number] Clindamycin 600 mg In 50 50 Dextrose 5% in Water 50 ml @ 50 mls/hr IVPB Q8H [facility] Rx#:[id number] Dextrose 5% in Water 1, 1520 000 ml @ 150 mls/hr IV . Q6H40M ONE Rx#:[id number] Potassium Chloride 10 meq 300 In Water For Injection 1 100ml.bag @ 100 mls/hr IVPB Q1HR [facility] Rx#: [id number] Sodium Chloride 0.9% 1, 75 900 75 000 ml @ 75 mls/hr IV . [id number] [facility] Rx#:[id number] Sodium Chloride 0.9% 1, 1000 000 ml @ 999 mls/hr IV . Q1H1M ONE Rx#:[id number] Vancomycin 1,000 mg In 250 125 125 Sodium Chloride 0.9% 250 ml @ 125 mls/hr IVPB Q12H [facility] Rx#:[id number] levETIRAcetam IV 1,000 mg 100 100 In Saline 1 100ml.bag @ 400 mls/hr IVPB Q12HR [facility] Rx#:[id number] Intake, IV Titration 163.725 Amount Cisatracurium 200 mg In 15.045 Sodium Chloride 0.9% 180 ml @ 1 MCG/KG/MIN 3.54 mls/hr IV .Q24H [facility] Rx#: [id number] propofoL 1,000 mg In 148.680 Empty Bag 1 bag @ Titrate IV .Q0M [facility] Rx#: [id number] Output: Urine 1070 695 30 Other: Voiding Method Indwelling Catheter Indwelling Catheter ABP, PAP, CO, CI - Last Documented Arterial Blood Pressure 108/59 - Exam Gen. appearance, the patient is currently intubated on a mechanical ventilator. Orogastric and orotracheal tube are both in place. She is sedated and paralyzed. HEAD: Normal with no signs of head trauma. EYES: PERRLA, EOMI, conjunctiva normal, no discharge. Pupils are 2 mm and equal bilaterally. ENT: Hearing grossly intact, normal oropharynx. Extremely dry mucous membranes. Lungs were clear to auscultation and percussion, and with normal diaphragmatic excursion. No wheezes or rales were noted. Cardiac exam revealed the PMI to be normally situated and sized. The rhythm was regular and no extrasystoles were noted during several minutes of auscultation. The first and second heart sounds were normal and physiologic splitting of the second heart sound was noted. There were no murmurs, rubs, clicks, or gallops. ABD: Abd is soft, nontender, nondistended. The patient has a triple-lumen catheter and arterial line in her right femoral area EXT: Normal range of motion, no obvious deformity SKIN: No rashes or lesions observed on exposed skin. NEURO: Patient remains sedated and paralyzed overnight. Pupils are equal and reactive to light. - Labs CBC & Chem 7: 09/12/21 04:13 09/12/21 04:13 Labs: Abnormal Lab Results - Last 24 Hours (Table) 09/11/21 09/11/21 09/11/21 Range/Units 04:28 11:12 11:14 WBC (3.8-10.6) k/uL RBC (3.80-5.40) m/uL MCV (80.0-100.0) fL MCHC (31.0-37.0) g/dL Plt Count (150-450) k/uL Neutrophils # (Manual) (1.3-7.7) k/uL Lymphocytes # (Manual) (1.0-4.8) k/uL ABG pH (7.35-7.45) ABG pCO2 (35-45) mmHg ABG pO2 (83-108) mmHg ABG HCO3 (21-25) mmol/L ABG Total CO2 (19-24) mmol/L ABG O2 Saturation (94-97) % Sodium (137-145) mmol/L Potassium (3.5-5.1) mmol/L Chloride 115 H (98-107) mmol/L BUN 29 H (7-17) mg/dL Glucose 222 H (74-99) mg/dL POC Glucose (mg/dL) 195 H (75-99) mg/dL Calcium 7.5 L (8.4-10.2) mg/dL Procalcitonin 0.33 H (0.02-0.09) ng/mL 09/11/21 09/11/21 09/11/21 Range/Units 11:14 16:32 18:20 WBC (3.8-10.6) k/uL RBC 3.67 L (3.80-5.40) m/uL MCV 105.9 H (80.0-100.0) fL MCHC 29.4 L (31.0-37.0) g/dL Plt Count 111 L (150-450) k/uL Neutrophils # (Manual) (1.3-7.7) k/uL Lymphocytes # (Manual) (1.0-4.8) k/uL ABG pH 7.47 H (7.35-7.45) ABG pCO2 (35-45) mmHg ABG pO2 79 L (83-108) mmHg ABG HCO3 26 H (21-25) mmol/L ABG Total CO2 27 H (19-24) mmol/L ABG O2 Saturation 93.8 L (94-97) % Sodium (137-145) mmol/L Potassium 3.4 L (3.5-5.1) mmol/L Chloride 112 H (98-107) mmol/L BUN 24 H (7-17) mg/dL Glucose 233 H (74-99) mg/dL POC Glucose (mg/dL) (75-99) mg/dL Calcium 7.9 L (8.4-10.2) mg/dL Procalcitonin (0.02-0.09) ng/mL 09/11/21 09/11/21 09/12/21 Range/Units 19:58 20:59 01:01 WBC (3.8-10.6) k/uL RBC (3.80-5.40) m/uL MCV (80.0-100.0) fL MCHC (31.0-37.0) g/dL Plt Count (150-450) k/uL Neutrophils # (Manual) (1.3-7.7) k/uL Lymphocytes # (Manual) (1.0-4.8) k/uL ABG pH 7.29 L (7.35-7.45) ABG pCO2 56 H (35-45) mmHg ABG pO2 45 L* 82 L (83-108) mmHg ABG HCO3 26 H 27 H (21-25) mmol/L ABG Total CO2 27 H 29 H (19-24) mmol/L ABG O2 Saturation 78.1 L 91.9 L (94-97) % Sodium (137-145) mmol/L Potassium (3.5-5.1) mmol/L Chloride (98-107) mmol/L BUN (7-17) mg/dL Glucose (74-99) mg/dL POC Glucose (mg/dL) 127 H (75-99) mg/dL Calcium (8.4-10.2) mg/dL Procalcitonin (0.02-0.09) ng/mL 09/12/21 09/12/21 09/12/21 Range/Units 04:13 04:13 05:40 WBC 16.5 H (3.8-10.6) k/uL RBC (3.80-5.40) m/uL MCV 105.2 H (80.0-100.0) fL MCHC 29.8 L (31.0-37.0) g/dL Plt Count (150-450) k/uL Neutrophils # (Manual) 16.00 H (1.3-7.7) k/uL Lymphocytes # (Manual) 0.50 L (1.0-4.8) k/uL ABG pH 7.17 L* (7.35-7.45) ABG pCO2 83 H* (35-45) mmHg ABG pO2 174 H (83-108) mmHg ABG HCO3 31 H (21-25) mmol/L ABG Total CO2 33 H (19-24) mmol/L ABG O2 Saturation 97.3 H (94-97) % Sodium 146 H (137-145) mmol/L Potassium (3.5-5.1) mmol/L Chloride 111 H (98-107) mmol/L BUN 23 H (7-17) mg/dL Glucose 158 H (74-99) mg/dL POC Glucose (mg/dL) (75-99) mg/dL Calcium 7.8 L (8.4-10.2) mg/dL Procalcitonin (0.02-0.09) ng/mL 09/12/21 Range/Units 06:27 WBC (3.8-10.6) k/uL RBC (3.80-5.40) m/uL MCV (80.0-100.0) fL MCHC (31.0-37.0) g/dL Plt Count (150-450) k/uL Neutrophils # (Manual) (1.3-7.7) k/uL Lymphocytes # (Manual) (1.0-4.8) k/uL ABG pH (7.35-7.45) ABG pCO2 (35-45) mmHg ABG pO2 (83-108) mmHg ABG HCO3 (21-25) mmol/L ABG Total CO2 (19-24) mmol/L ABG O2 Saturation (94-97) % Sodium (137-145) mmol/L Potassium (3.5-5.1) mmol/L Chloride (98-107) mmol/L BUN (7-17) mg/dL Glucose (74-99) mg/dL POC Glucose (mg/dL) 138 H (75-99) mg/dL Calcium (8.4-10.2) mg/dL Procalcitonin (0.02-0.09) ng/mL Microbiology - Last 24 Hours (Table) 09/10/21 12:45 Blood Culture - Preliminary Blood No Growth after 24 hours 09/10/21 13:03 Blood Culture - Preliminary Blood No Growth after 24 hours 09/10/21 11:46 Urine Culture - Preliminary Urine,Clean Catch Assessment and Plan Plan: 1 altered mental status, multifactorial. The patient has significant abnormalities in her electrolytes with significant intravascular volume depletion and the patient presented with seizures, given IV Ativan and currently she seems to be at least clinically seizure free. CAT scan of the brain was done and this was a limited exam. Nevertheless, there is some degenerative changes and remote ischemic changes and an LEFT thalamic and left cerebral peduncle stroke. Acute ischemia or an ischemic stroke could not be completely excluded. An MRI of the brain was recommended by the radiologist. Clinically, the patient is improving and she seems to be slightly more awake compared to yesterday. Neurology remains on the case. The patient remains on IV Keppra. No seizure activity has been noted overnight. In terms of her neurologic function is, the patient was showing recovery with improvement of her electrolytes. Subsequently, she went into acute hypoxic respiratory failure and the patient had to be intubated and placed on a mechanical ventilator. Currently sedated and paralyzed. 2 acute Covid 19 infection/pneumonia and the patient is limited infiltration of left lung base 3 acute hypoxic respiratory failure secondary to mucous plug causing complete left lung collapse. The patient underwent bronchoscopy and that is the expansion of the left lung. Nevertheless, she is quite stiff at this point in time and the lungs are poorly compliant and she is requiring high PEEP and high FiO2 and a pO2 over FiO2 ratio is less than 100 consistent with acute lung injury/ARDS. Chest x-ray was noted. Blood gases was noted. There is adequate expansion of the left lung with residual infiltration of the left lung base. 4 acute intravascular volume depletion/dehydration Copious amount of mucus with severe hyperchloremic hypernatremia, improved 5 history of seizure activity. 6 previous history of pulmonary embolism on long-term medical condition with Eliquis 7 paroxysmal atrial fibrillation current rhythm is sinus, currently on IV heparin and the cardiac rhythm is still sinus. 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 The patient also has had a TIA back in 2019. 15 history of gestational diabetes mellitus related to pregnancies 16 history of E. coli urine checked infection. 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 Keep the patient sedated and paralyzed Continue current antibiotic coverage pending further cultures. Keep the patient a mechanical ventilator and drop the FiO2 down to 80% , increase rate to 32, repeat ABG in 1 hour IV fluids with normal saline and this will be changed switched to half-normal saline at the rate of 50 mL an hour DC heparin Lovenox 40 mg SC for DVT prophylaix Continue IV Decadron once a day 6 mg Continue IV Keppra DC vanco and Aztreonam and keep the patient on Levaquin 500 mg IV and Clindamycin Keep the head of the bed elevated and aspiration precautions. Check inflammatory markers including of his CRP and LDH, elevated Urine cultures and blood cultures and BAL of the left lung Enteral feeding to be initated today Keep this patient ICU. Neurology consultation. We'll continue to follow. Time with Patient: Greater than 30
[2021-09-12] MEDS: CHLORHEXIDINE GLUCONATE 15 ML CUP MUCOUS MEM SCH ×2 (10:11→20:13)
[2021-09-12] MEDS: PANTOPRAZOLE 40 MG/10 ML VIAL IV SCH (10:46)
[2021-09-12] MEDS: CHOLECALCIFEROL 125 MCG (5000 IU) TABLET PO SCH (10:46)
[2021-09-12] MEDS: ENOXAPARIN 40 MG/0.4 ML SYRINGE SQ SCH (10:46)
[2021-09-12] MEDS: DEXAMETHASONE SOD PHOSPHATE 10 MG/ML 1 ML VIAL IVP SCH (10:46)
[2021-09-12] MEDS: AMIODARONE 200 MG TAB PO SCH (10:46)
[2021-09-12] MEDS: levETIRAcetam IV 1,500 MG in SALINE 1 100ML.BAG IVPB SCH ×2 (10:47→20:20)
[2021-09-12 11:23] LABS: Levetiracetam (Keppra) 79.2 ug/mL (3.0-60.0)
[2021-09-12 11:47] LABS: Glucose,Whole Blood 132 mg/dL (75-99)
[2021-09-12 11:49] LABS: Glucose,Whole Blood 133 mg/dL (75-99)
[2021-09-12] MEDS: FLUCONAZOLE IN NACL,ISO-OSM 100 MG in SALINE 1 50ML.BAG IVPB SCH (13:28)
[2021-09-12] MEDS: SODIUM CHLORIDE 0.45% 1,000 ML IV SCH (13:29)
[2021-09-12] MEDS: LEVOFLOXACIN 500MG-D5W PMX 500 MG in DEXTROSE/WATER 1 100ML.BAG IVPB SCH (14:26)
[2021-09-12] MEDS: NOREPINEPHRINE 32 MG in SODIUM CHLORIDE 0.9% 218 ML IV SCH (14:36)
[2021-09-12] MEDS ORDERED: VANCOMYCIN TROUGH DUE 1 EACH MISC MISCELLANE ONE (16:00)
[2021-09-12 17:53] LABS: Glucose,Whole Blood 146 mg/dL (75-99)
[2021-09-12] MEDS: ATORVASTATIN 80 MG TAB PO SCH (20:13)
[2021-09-12] MEDS: ARTIFICIAL TEARS-HYPROMELLOSE DROPS 15 ML BTL BOTH EYES PRN (20:23)
[2021-09-12] MEDS: CISATRACURIUM 200 MG in SODIUM CHLORIDE 0.9% 180 ML IV SCH (20:43)
--- NOTE | 2021-09-12 22:25 | P.PN ---
Subjective This is a pleasant 51 years old female with past medical history of Coronary Artery Disease, Heart Failure, CVA/TIA, Pulmonary Embolus (PE), Seizure Disorder, Last seizure 2009, CVA 2007 with L sided weakness arm and leg and has L foot drop, TIA 2018, cardiomyopathy, R PE and pneumothorax/pneumonia following leg fracture in 1994, gestational diabetes with all pregnancies , bilateral glaucoma with surgery, psoriasis in the past, UTIs. She is a status post Pacemaker, history of Bilateral eye surgery for glaucoma, Anxiety, Depression, Current every day smoker Patient presents because of altered mental status. Information was limited from the patient. It was obtained from the chart and medical staff. Also as per family patient was able to go to the bathroom, was more lethargic and tired over the last day. While in the emergency room focal mild seizure is noticed On admission patient had and fever of 101. She is tachypneic at 26-40, tachycardic 110-140, also she is hypoxic saturating 72% on room air Labs showing WBC of 10.5, hemoglobin of 16.3, platelet count of 197. INR 1.7. Sodium 164, creatinine 1.7, lactic acid elevated 4.6. Liver enzymes elevated with AST 202 and ALT 81. Bilirubin is normal at 1.3. Urine analysis is highly suspicious of infection Urine drug screen is negative Cash versus positive Chest x-ray showing left perihilar and left lower lobe area of infiltrate and small effusion correlates for pneumonia CT of the brain without contrast showing no intracranial hemorrhage, evidence of remote ischemic change. However there is vague low attenuation near the left thalamus and left cerebral peduncle. Acute ischemia in the differential diagnosis. Recommend stat MRI of brain with MRSA tejon of [place] as clinically warranted. In the emergency room patient was started on aztreonam and IV vancomycin, Keppra and heparin drip 09/11/2021 Patient today was still in the ICU, she was very weak and obtunded, she will wake up to certain stabilized and moans, she does not follow commands she cannot, gait she moved both extremities symmetrically. R on she had collapse of her left lung cancer and she has to be intubated and repeat chest x-ray showing better. A of the left lung. She is tachypneic with a breathing rate 22, no more fever since yesterday. Her sodium improved down to 144 and she was started on normal saline, creatinine 1.1, Ejection fraction showed 30-35% which is slice worsened from 06/2021 where it was 35-40% She remains on dexamethasone, IV vancomycin and clindamycin, heparin drip, Keppra and normal saline at 75 mL/h 09/12/2021 Patient with respiratory failures and she was intubated and placed on mechanical ventilation with pulmonary/critical care team following her mostly. There is no more seizure-like activity noticed. She still tachypneic with a breathing rate of 32 blood pressure 100/70, she is needing FiO2 of 80% and PEEP of 20. She has no more fevers since admission. Urine culture is growing gram-negative bacilli. Sodium is 146, WBCs is increased at 16.5 K. PH showing acidosis with 7.1 and elevated pCO2 at 83. Chest x-ray showing left sided opacities with near full. A of the left lung. Patient kept on antibiotics in the form of clindamycin and Levaquin and fluconazole. Also she remains on dexamethasone, and so a heparin to Lovenox. Also continued on seizure medication 1500 mg twice a day and IV fluids per pulmonary team. Neurology team on the case Objective - Vital Signs Vital signs: Vital Signs Temp 98.1 F 09/12/21 04:00 Pulse 112 H 09/12/21 07:00 Resp 28 H 09/12/21 07:00 BP 104/78 09/12/21 07:00 Pulse Ox 97 09/12/21 07:00 Intake & Output 09/11/21 09/12/21 09/12/21 18:59 06:59 18:59 Intake Total 3395 1472.025 233.3 Output Total 1070 695 30 Balance 2325 777.025 203.3 Weight 60.2 kg 60.2 kg Intake: IV 3395 1308.3 233.3 Aztreonam 2 gm In Sodium 100 133.3 33.3 Chloride 0.9% 100 ml @ 33 .333 mls/hr IVPB Q8H [facility] Rx#:[id number] Clindamycin 600 mg In 50 50 Dextrose 5% in Water 50 ml @ 50 mls/hr IVPB Q8H [facility] Rx#:[id number] Dextrose 5% in Water 1, 1520 000 ml @ 150 mls/hr IV . Q6H40M [facility] Rx#:[id number] Potassium Chloride 10 meq 300 In Water For Injection 1 100ml.bag @ 100 mls/hr IVPB Q1HR [facility] Rx#: [id number] Sodium Chloride 0.9% 1, 75 900 75 000 ml @ 75 mls/hr IV . [id number] [facility] Rx#:[id number] Sodium Chloride 0.9% 1, 1000 000 ml @ 999 mls/hr IV . Q1H1M [facility] Rx#:[id number] Vancomycin 1,000 mg In 250 125 125 Sodium Chloride 0.9% 250 ml @ 125 mls/hr IVPB Q12H [facility] Rx#:[id number] levETIRAcetam IV 1,000 mg 100 100 In Saline 1 100ml.bag @ 400 mls/hr IVPB Q12HR [facility] Rx#:[id number] Intake, IV Titration 163.725 Amount Cisatracurium 200 mg In 15.045 Sodium Chloride 0.9% 180 ml @ 1 MCG/KG/MIN 3.54 mls/hr IV .Q24H [facility] Rx#: [id number] propofoL 1,000 mg In 148.680 Empty Bag 1 bag @ Titrate IV .Q0M [facility] Rx#: [id number] Output: Urine 1070 695 30 Other: Voiding Method Indwelling Catheter Indwelling Catheter ABP, PAP, CO, CI - Last Documented Arterial Blood Pressure 108/59 - Exam -GENERAL: The patient is intubated and sedated HEENT: Pupils are round and equally reacting to light. EOMI. No scleral icterus. No conjunctival pallor. Normocephalic, atraumatic. No pharyngeal erythema. No thyromegaly. CARDIOVASCULAR: S1 and S2 present. No murmurs, rubs, or gallops. PULMONARY: Chest is clear to auscultation, no wheezing or crackles. ABDOMEN: Soft, nontender, nondistended, normoactive bowel sounds. No palpable organomegaly. MUSCULOSKELETAL: No joint swelling or deformity. EXTREMITIES: No cyanosis, clubbing, or pedal edema. NEUROLOGICAL: Gross neurological examination did not reveal any focal deficits. SKIN: No rashes. no petechiae. - Labs CBC & Chem 7: 09/12/21 04:13 09/12/21 04:13 Labs: Abnormal Lab Results - Last 24 Hours (Table) 09/10/21 09/11/21 09/11/21 Range/Units 19:55 11:14 16:32 WBC (3.8-10.6) k/uL MCV (80.0-100.0) fL MCHC (31.0-37.0) g/dL Neutrophils # (Manual) (1.3-7.7) k/uL Lymphocytes # (Manual) (1.0-4.8) k/uL ABG pH (7.35-7.45) ABG pCO2 (35-45) mmHg ABG pO2 (83-108) mmHg ABG HCO3 (21-25) mmol/L ABG Total CO2 (19-24) mmol/L ABG O2 Saturation (94-97) % Sodium (137-145) mmol/L Potassium 3.4 L (3.5-5.1) mmol/L Chloride 112 H (98-107) mmol/L BUN 29 H 24 H (7-17) mg/dL Glucose 222 H 233 H (74-99) mg/dL POC Glucose (mg/dL) (75-99) mg/dL Calcium 7.5 L 7.9 L (8.4-10.2) mg/dL Levetiracetam 79.2 H (3.0-60.0) ug/mL 09/11/21 09/11/21 09/11/21 Range/Units 18:20 19:58 20:59 WBC (3.8-10.6) k/uL MCV (80.0-100.0) fL MCHC (31.0-37.0) g/dL Neutrophils # (Manual) (1.3-7.7) k/uL Lymphocytes # (Manual) (1.0-4.8) k/uL ABG pH 7.47 H 7.29 L (7.35-7.45) ABG pCO2 56 H (35-45) mmHg ABG pO2 79 L 45 L* 82 L (83-108) mmHg ABG HCO3 26 H 26 H 27 H (21-25) mmol/L ABG Total CO2 27 H 27 H 29 H (19-24) mmol/L ABG O2 Saturation 93.8 L 78.1 L 91.9 L (94-97) % Sodium (137-145) mmol/L Potassium (3.5-5.1) mmol/L Chloride (98-107) mmol/L BUN (7-17) mg/dL Glucose (74-99) mg/dL POC Glucose (mg/dL) (75-99) mg/dL Calcium (8.4-10.2) mg/dL Levetiracetam (3.0-60.0) ug/mL 09/12/21 09/12/21 09/12/21 Range/Units 01:01 04:13 04:13 WBC 16.5 H (3.8-10.6) k/uL MCV 105.2 H (80.0-100.0) fL MCHC 29.8 L (31.0-37.0) g/dL Neutrophils # (Manual) 16.00 H (1.3-7.7) k/uL Lymphocytes # (Manual) 0.50 L (1.0-4.8) k/uL ABG pH (7.35-7.45) ABG pCO2 (35-45) mmHg ABG pO2 (83-108) mmHg ABG HCO3 (21-25) mmol/L ABG Total CO2 (19-24) mmol/L ABG O2 Saturation (94-97) % Sodium 146 H (137-145) mmol/L Potassium (3.5-5.1) mmol/L Chloride 111 H (98-107) mmol/L BUN 23 H (7-17) mg/dL Glucose 158 H (74-99) mg/dL POC Glucose (mg/dL) 127 H (75-99) mg/dL Calcium 7.8 L (8.4-10.2) mg/dL Levetiracetam (3.0-60.0) ug/mL 09/12/21 09/12/21 09/12/21 Range/Units 05:40 06:27 11:45 WBC (3.8-10.6) k/uL MCV (80.0-100.0) fL MCHC (31.0-37.0) g/dL Neutrophils # (Manual) (1.3-7.7) k/uL Lymphocytes # (Manual) (1.0-4.8) k/uL ABG pH 7.17 L* (7.35-7.45) ABG pCO2 83 H* (35-45) mmHg ABG pO2 174 H (83-108) mmHg ABG HCO3 31 H (21-25) mmol/L ABG Total CO2 33 H (19-24) mmol/L ABG O2 Saturation 97.3 H (94-97) % Sodium (137-145) mmol/L Potassium (3.5-5.1) mmol/L Chloride (98-107) mmol/L BUN (7-17) mg/dL Glucose (74-99) mg/dL POC Glucose (mg/dL) 138 H 132 H (75-99) mg/dL Calcium (8.4-10.2) mg/dL Levetiracetam (3.0-60.0) ug/mL 09/12/21 Range/Units 11:48 WBC (3.8-10.6) k/uL MCV (80.0-100.0) fL MCHC (31.0-37.0) g/dL Neutrophils # (Manual) (1.3-7.7) k/uL Lymphocytes # (Manual) (1.0-4.8) k/uL ABG pH (7.35-7.45) ABG pCO2 (35-45) mmHg ABG pO2 (83-108) mmHg ABG HCO3 (21-25) mmol/L ABG Total CO2 (19-24) mmol/L ABG O2 Saturation (94-97) % Sodium (137-145) mmol/L Potassium (3.5-5.1) mmol/L Chloride (98-107) mmol/L BUN (7-17) mg/dL Glucose (74-99) mg/dL POC Glucose (mg/dL) 133 H (75-99) mg/dL Calcium (8.4-10.2) mg/dL Levetiracetam (3.0-60.0) ug/mL Microbiology - Last 24 Hours (Table) 09/10/21 12:45 Blood Culture - Preliminary Blood No Growth after 24 hours 09/10/21 13:03 Blood Culture - Preliminary Blood No Growth after 24 hours 09/10/21 11:46 Urine Culture - Preliminary Urine,Clean Catch Assessment and Plan Assessment: Altered mental status could be metabolic/toxic encephalopathy, rule out other intracranial lesions, seizure Left lower lobe pneumonia, rule out aspiration pneumonia Sepsis secondary to UTI and pneumonia Breakthrough seizure Acute stroke is suspected with new focus at the left thalamus and left cerebral peduncle Bilateral Covid pneumonia Acute hypoxic respiratory failure Increased inflammatory markers elevated troponin, most likely type II ischemia. Rule out primary cardiac causes Hypernatremia Acute kidney injury Mild elevated liver enzymes History of coronary artery disease History of pulmonary embolism History of seizure disorder, last seizure was in 2009 as per documents History 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 left foot drop History of glaucoma status post surgery Status post permanent pacemaker Nicotine dependence Plan: This is a pleasant 51 years old female who presents with altered mental status, pneumonia, UTI, possible stroke, seizure and possible covid pneumonia Continue with Keppra and neurology consult. MRI of the brain is recommended however I'm not sure if her clinical condition allow doing test, we'll defer this to neurology and pulmonary/critical care team pulmonary consult, continue the broad-spectrum antibiotics with clindamycin and Levaquin and fluconazole. Follow-up sputum and blood and urine culture Continue with dexamethasone Continue with vitamin C, vitamin D and zinc Pulmonary consult /critical care team consult Cardiology team consult for elevated troponin, patient does not have A. fib per rn call center Continue with IV hydration pole pulmonary team Labs and medication were reviewed.. Continue same treatment. Continue with symptomatic treatment. Resume home medication. Monitor lytes and vitals. DVT and GI prophylaxis. Further recommendations depends on the clinical course of the patient DVT prophylaxis: Lovenox GI Prophylaxis: Pepcid PT/OT: n/a Prognosis is guarded
[2021-09-13 00:01] LABS: Glucose,Whole Blood 128 mg/dL (75-99)
[2021-09-13] MEDS: CLINDAMYCIN 600 MG in DEXTROSE 5% IN WATER 50 ML IVPB SCH ×6 (01:32→16:35)
[2021-09-13] MEDS: SODIUM CHLORIDE 0.45% 1,000 ML IV SCH (03:53)
[2021-09-13] MEDS: ARTIFICIAL TEARS-HYPROMELLOSE DROPS 15 ML BTL BOTH EYES PRN ×2 (03:55→20:31)
[2021-09-13 04:30] LABS: Basophils % (A) 0 %; Eosinophils % (A) 0 %; HCT 41.5 % (34.0-46.0); HGB 12.7 gm/dL (11.4-16.0); Hypochromasia Marked; Lymphocytes # (A) 0.4 k/uL (1.0-4.8); Lymphocytes % (A) 2 %; MCH 32.6 pg (25.0-35.0); MCHC 30.6 g/dL (31.0-37.0); MCV 106.8 fL (80.0-100.0); Macrocytosis Moderate; Mean Platelet Volume 11.4; Monocytes # (A) 0.2 k/uL (0-1.0); Monocytes % (A) 1 %; Neutrophils # (A) 16.9 k/uL (1.3-7.7); Neutrophils % (A) 96 %; Platelet Count 146 k/uL (150-450); RBC 3.89 m/uL (3.80-5.40); RDW 13.3 % (11.5-15.5); WBC 17.7 k/uL (3.8-10.6)
[2021-09-13 04:58] LABS: African American GFR (CKD) >90 (>60 ml/min/1.73 sqM); Anion Gap 4 mmol/L; Blood Urea Nitrogen 27 mg/dL (7-17); Carbon Dioxide 31 mmol/L (22-30); Chloride 107 mmol/L (98-107); Glucose 154 mg/dL (74-99); Non-African American GFR(CKD) >90 (>60 ml/min/1.73 sqM); Potassium 4.7 mmol/L (3.5-5.1); Sodium 142 mmol/L (137-145)
[2021-09-13 06:14] LABS: Glucose,Whole Blood 138 mg/dL (75-99)
[2021-09-13 06:14] LABS: ABG Base Excess 3.9 mmol/L; ABG HCO3 32 mmol/L (21-25); ABG Oxygen Saturation 96.8 % (94-97); ABG PH 7.21 (7.35-7.45); ABG PO2 136 mmHg (83-108); ABG TCO2 34 mmol/L (19-24); Allen Test Performed? Yes
[2021-09-13 06:17] LABS: ABG PCO2 79 mmHg (35-45)
[2021-09-13 06:38] LABS: C Reactive Protein 25.1 mg/dL (<1.0)
--- NOTE | 2021-09-13 06:54 | XR ---
EXAMINATION TYPE: XR chest 1V portable DATE OF EXAM: 09/13/2021 COMPARISON: 09/12/2021 HISTORY: Shortness of breath TECHNIQUE: Single frontal view of the chest is obtained. FINDINGS: There is mild diffuse small airspace/alveolar type opacity scattered throughout the left l ahmet. Appears slightly less prominent than on the prior study. The right lung remains clear. There is no pneumothorax or large pleural effusion. Heart size normal. ET tube is 5 cm above the polo. There is been no change in the internally cardiac pacemaker or NG tube. The osseous structures are gr ossly intact IMPRESSION: Acute diffuse infiltrate in the left lung which has shown mild interval improvement comp ared to previous. Exam is stable.
--- NOTE | 2021-09-13 07:42 | P.PN ---
Subjective Progress Note Date: 09/13/21 This is a 51-year-old female patient was brought into because of an altered mental status. The patient was found by her brother was concerned about her mental status. The patient has poor baseline performance and functional status and more recently she wasn't able to take care of herself. She was feeling more lethargic and tired and based on all this, she was brought into the emergency department. In the ED, the patient was having seizures and tachycardia and she was altered and unresponsive. The patient was given IV Ativan. At the time of my evaluation, the patient was quite sedated. No tracheal evidence of a seizure activity and the patient was withdrawing and 4 extremities without any l imitation. The patient furthermore was found to have significant abnormalities in her blood work. The patient also tested positive for COVID 19. In summary, the patient was found to have a sodium level LXIV, chloride of 116, FiO2 of 4.6, troponin of 0.3, and UA was abnormal highly suspicious for underlying urine checked infection. Urine drug screen was negative. At this point in time, the patient on IV fluids and the patient is receiving D5 water at the rate of 100 mL an hour. The patient was given a combination of vancomycin and aztreonam as empiric antibiotic coverage. The patient was also started on Decadron 6 mg IV every 12 hours. Chest x-ray showing a left perihilar and lower lobe pulmonary infiltration and the patient is currently on 6 L of oxygen by nasal cannula with a pulse of a 98%. She is in sinus tachycardia. Nevertheless, she has history of atrial fibrillation. She has been minimal, to coagulation with Eliquis and she was also taken amiodarone on outpatient basis. She is also known to have cardiomyopathy with an ejection fraction of 30-35%. On regular inspection, the patient looks quite debilitated. She has a body mass index of 19.7. Very poor oral hygiene and multiple decayed teeth. Her personal hygiene is also poor. 09/11/2021, the patient is being seen in follow-up in the intensive care units. No seizure activity overnight. The patient is being given D5 water at the rate of 150 mL an hour. The sodium level is improved and is currently down to 150. Neurologically, limited more interactive compared to yesterday. She opens her eyes. She mumbles. Nevertheless, she cannot hold a conversation and she cannot follow any commands at this point in time. She looks extremely emaciated, debilitated on inspection. Meanwhile, the patient was suspected to have UTI. She was placed on a combination of aztreonam and vancomycin as an empiric antibiotic coverage. She was started on IV Keppra regarding her seizure activity and previous history of epilepsy. She is also on Decadron 6 mg IV regarding over 19 infection. On today's blood work, the sodium level is down to 150, chloride level is down to 116, acute kidney injury is improving and the creatinine is down to 0.8 and has normalized, urine output is improved, the LDH level is 1505 and a CRP level is at 20.5 and this is consistent with: 19 infection. White cell count is at 8.8 with a hemoglobin of 12.3 and a platelet count of 138. The chest x-ray from yesterday was noted. The follow-up chest x- ray was not done today. Neurology consulted on this patient. She is noted to b e coagulopathic and the patient was taken Eliquis on outpatient basis regarding previous history of chronic atrial fibrillation. Her current cardiac rhythm is sinus for now. She is known to have cardiomyopathy with an ejection fraction of 30-35% based on a previous echocardiogram. 09/12/2021, the patient is intubated and mechanically ventilated. Note that by late afternoon yesterday, the patient acutely became hypoxic. She was placed on high flow oxygen. The chest x-ray was done that showed complete collapse of the left lung. At that point, the patient was intubated and placed on a mechanical ventilator. Post intubation, she underwent a bronchoscopy and large mucous plugs were aspirated from the left lung. Bronchial lavage of the left lower lobe was done. Overnight, but continued having difficulties with her oxygenation. Based on that, the patient was sedated and paralyzed. The patient is currently on Prempro before running at 50 mcg/kg per minute and index is running at 1.5 mcg/kg per minute. She is fully sedated and paralyzed and index was brought up to 2 mcg/kg per minute. She is on a mechanical ventilator. At this point in time she is on a tidal volume of 300, rate of 28, FiO2 of 100% with a PEEP of 20. Pulse expiratory improved and she is up to 97%. Meanwhile, the blood gases from today shows a pH of 7.17 with a pCO2 of 83 and pO2 of 147. CPeak airway pressures around 37 on a mechanical ventilator. The chest x-ray from today shows reexpansion of the left lung. Is a left perihilar/left lower lobe pulmonary infiltrate. ET tube is in a good location. Meanwhile, the patient's white cell count is up to 16.5. Hemoglobin was at 12.8 with a platelet counts of 170. The patient was placed on a combination of antibiotics patient is currently on a combination of aztreonam and vancomycin. Clindamycin was also added yesterday concerning possibility of an underlying aspiration. Note that the patient presented to us with Covid 19 infection. She was also profoundly dehydrated and hypernatremic. Hyper natremia improved. On her blood work from today, the patient's sodium level is down to 146 with a potassium level of 4.8. The D5 water infusion has recovered removed. Also, her renal function is also normalized and the creatinine is down to 0.65. In terms of inflammatory markers, her LDH level was 1505 and a CRP level was at 20.5. Her pro-calcitonin level was at 0.33. Cultures for now are all negative. Blood cultures show no growth. Urine culture is still pending. Bronchioloalveolar lavage was also sent for microbial analysis. 09/13/2021, the patient remains intubated on mechanical ventilator. She was intubated as the patient lost her left lung and there was complete atelectasis of the left lung due to mucous plugs. Bronchoscopy was done post intubation. Reexpansion of the left lung was achieved. Nevertheless, the left lung is infiltrated. Subsequently the patient went into ARDS. At this point in time, the patient is intubated on mechanical ventilator. She remains on a volume cycled mechanical ventilation. She is sedated with propofol running at 50 mcg/kg per minute and the patient is also on Nimbex running at 2 mcg/kg per minute. Hemodynamically, she is stable. On mechanical ventilator, she is an assist-control at the rate of 32 with a tidal volume of 300 and FiO2 of 70% with a PEEP of 20. Morning blood gases showed a pH of 7.21 with a pCO2 of 79 and pO2 of 136. Based on that, further adjustments on a mechanical ventilator with him. On today's chest x-ray, there is no evidence of pneumothorax. Left lung is infiltrated compared to the right and there is still some atelectatic changes and infiltration of the left lung base. The bronchoscopy and the lavage of the left lung was done. Cultures still pending. Urine cultures positive for gram- negative bacillus and the patient is still on a combination of Levaquin and clindamycin. The patient is also on Diflucan due to extensive oropharyngeal candidiasis was noted at a time of intubation. The patient was started on enteral feeding for nutritional support. She is currently receiving vitamin 1.2 at the rate of 20 mL an hour. IV fluids in the form of half-normal saline at the rate of 45 mL an hour. The patient has a white cell count of 17.7, hemoglobin is at 12.7, d-dimer is at 0.8, sodium is at 142, BUN is at 27 with a creatinine of 0.6. LDH level is 1009 and the CRP level is 25. Note that the LDH is lower compared to yesterday. No pressors for now. Urine output is adequate. No fever. No other significant events overnight. Objective - Vital Signs Vital signs: Vital Signs Temp 97.7 F 09/13/21 04:00 Pulse 100 09/13/21 07:00 Resp 32 H 09/13/21 07:00 BP 99/71 09/13/21 07:00 Pulse Ox 94 L 09/13/21 07:00 Intake & Output 09/12/21 09/13/21 09/13/21 18:59 06:59 18:59 Intake Total 986.3 1312.319 73 Output Total 470 535 40 Balance 516.3 777.319 33 Weight 60.2 kg Intake: IV 886.3 730 53 Aztreonam 2 gm In Sodium 33.3 Chloride 0.9% 100 ml @ 33 .333 mls/hr IVPB Q8H [facility] Rx#:[id number] Clindamycin 600 mg In 50 Dextrose 5% in Water 50 ml @ 50 mls/hr IVPB Q8H [facility] Rx#:[id number] Pressure bag 3 30 3 Sodium Chloride 0.45% 1, 500 550 50 000 ml @ 50 mls/hr IV . Q20H [facility] Rx#:[id number] Sodium Chloride 0.9% 1, 225 000 ml @ 75 mls/hr IV . [id number] [facility] Rx#:[id number] Vancomycin 1,000 mg In 125 Sodium Chloride 0.9% 250 ml @ 125 mls/hr IVPB Q12H [facility] Rx#:[id number] levETIRAcetam IV 1,000 mg 100 In Saline 1 100ml.bag @ 400 mls/hr IVPB Q12HR [facility] Rx#:[id number] Intake, IV Titration 100 362.319 Amount Cisatracurium 200 mg In 139.594 Sodium Chloride 0.9% 180 ml @ 1 MCG/KG/MIN 3.54 mls/hr IV .Q24H [facility] Rx#: [id number] propofoL 1,000 mg In 100 222.725 Empty Bag 1 bag @ Titrate IV .Q0M [facility] Rx#: [id number] Tube Feeding 160 20 Other 60 Output: Urine 470 535 40 Other: Voiding Method Indwelling Catheter Indwelling Catheter ABP, PAP, CO, CI - Last Documented Arterial Blood Pressure 119/60 - Exam Gen. appearance, the patient is currently intubated on a mechanical ventilator. Orogastric and orotracheal tube are both in place. She is sedated and paralyzed. HEAD: Normal with no signs of head trauma. EYES: PERRLA, EOMI, conjunctiva normal, no discharge. Pupils are 2 mm and equal bilaterally. ENT: Hearing grossly intact, normal oropharynx. Extremely dry mucous membranes. Lungs were clear to auscultation and percussion, and with normal diaphragmatic excursion. No wheezes or rales were noted. Cardiac exam revealed the PMI to be normally situated and sized. The rhythm was regular and no extrasystoles were noted during several minutes of auscultation. The first and second heart sounds were normal and physiologic splitting of the second heart sound was noted. There were no murmurs, rubs, clicks, or gallops. ABD: Abd is soft, nontender, nondistended. The patient has a triple-lumen catheter and arterial line in her right femoral area EXT: Normal range of motion, no obvious deformity SKIN: No rashes or lesions observed on exposed skin. NEURO: Patient remains sedated and paralyzed overnight. Pupils are equal and reactive to light. - Labs CBC & Chem 7: 09/13/21 04:00 09/13/21 04:00 Labs: Abnormal Lab Results - Last 24 Hours (Table) 09/10/21 09/12/21 09/12/21 Range/Units 19:55 11:45 11:48 WBC (3.8-10.6) k/uL MCV (80.0-100.0) fL MCHC (31.0-37.0) g/dL Plt Count (150-450) k/uL Neutrophils # (1.3-7.7) k/uL Lymphocytes # (1.0-4.8) k/uL D-Dimer (<0.60) mg/L FEU ABG pH (7.35-7.45) ABG pCO2 (35-45) mmHg ABG pO2 (83-108) mmHg ABG HCO3 (21-25) mmol/L ABG Total CO2 (19-24) mmol/L Carbon Dioxide (22-30) mmol/L BUN (7-17) mg/dL Glucose (74-99) mg/dL POC Glucose (mg/dL) 132 H 133 H (75-99) mg/dL Calcium (8.4-10.2) mg/dL Lactate Dehydrogenase (313-618) U/L C-Reactive Protein (<1.0) mg/dL Levetiracetam 79.2 H (3.0-60.0) ug/mL 09/12/21 09/12/21 09/13/21 Range/Units 17:52 23:59 04:00 WBC (3.8-10.6) k/uL MCV (80.0-100.0) fL MCHC (31.0-37.0) g/dL Plt Count (150-450) k/uL Neutrophils # (1.3-7.7) k/uL Lymphocytes # (1.0-4.8) k/uL D-Dimer 0.81 H (<0.60) mg/L FEU ABG pH (7.35-7.45) ABG pCO2 (35-45) mmHg ABG pO2 (83-108) mmHg ABG HCO3 (21-25) mmol/L ABG Total CO2 (19-24) mmol/L Carbon Dioxide (22-30) mmol/L BUN (7-17) mg/dL Glucose (74-99) mg/dL POC Glucose (mg/dL) 146 H 128 H (75-99) mg/dL Calcium (8.4-10.2) mg/dL Lactate Dehydrogenase (313-618) U/L C-Reactive Protein (<1.0) mg/dL Levetiracetam (3.0-60.0) ug/mL 09/13/21 09/13/21 09/13/21 Range/Units 04:00 04:00 04:00 WBC 17.7 H (3.8-10.6) k/uL MCV 106.8 H (80.0-100.0) fL MCHC 30.6 L (31.0-37.0) g/dL Plt Count 146 L (150-450) k/uL Neutrophils # 16.9 H (1.3-7.7) k/uL Lymphocytes # 0.4 L (1.0-4.8) k/uL D-Dimer (<0.60) mg/L FEU ABG pH (7.35-7.45) ABG pCO2 (35-45) mmHg ABG pO2 (83-108) mmHg ABG HCO3 (21-25) mmol/L ABG Total CO2 (19-24) mmol/L Carbon Dioxide 31 H (22-30) mmol/L BUN 27 H (7-17) mg/dL Glucose 154 H (74-99) mg/dL POC Glucose (mg/dL) (75-99) mg/dL Calcium 8.0 L (8.4-10.2) mg/dL Lactate Dehydrogenase 1009 H (313-618) U/L C-Reactive Protein 25.1 H (<1.0) mg/dL Levetiracetam (3.0-60.0) ug/mL 09/13/21 09/13/21 Range/Units 06:11 06:12 WBC (3.8-10.6) k/uL MCV (80.0-100.0) fL MCHC (31.0-37.0) g/dL Plt Count (150-450) k/uL Neutrophils # (1.3-7.7) k/uL Lymphocytes # (1.0-4.8) k/uL D-Dimer (<0.60) mg/L FEU ABG pH 7.21 L (7.35-7.45) ABG pCO2 79 H* (35-45) mmHg ABG pO2 136 H (83-108) mmHg ABG HCO3 32 H (21-25) mmol/L ABG Total CO2 34 H (19-24) mmol/L Carbon Dioxide (22-30) mmol/L BUN (7-17) mg/dL Glucose (74-99) mg/dL POC Glucose (mg/dL) 138 H (75-99) mg/dL Calcium (8.4-10.2) mg/dL Lactate Dehydrogenase (313-618) U/L C-Reactive Protein (<1.0) mg/dL Levetiracetam (3.0-60.0) ug/mL Microbiology - Last 24 Hours (Table) 09/10/21 12:45 Blood Culture - Preliminary Blood No Growth after 48 hours 09/10/21 13:03 Blood Culture - Preliminary Blood No Growth after 48 hours 09/10/21 11:46 Urine Culture - Preliminary Urine,Clean Catch Gram Neg Bacilli Assessment and Plan Plan: 1 altered mental status, multifactorial. The patient has significant abnormalities in her electrolytes with significant intravascular volume depletion and the patient presented with seizures, given IV Ativan and currently she seems to be at least clinically seizure free. CAT scan of the brain was done and this was a limited exam. Nevertheless, there is some degenerative changes and remote ischemic changes and an LEFT thalamic and left cerebral peduncle stroke. Acute ischemia or an ischemic stroke could not be completely excluded. An MRI of the brain was recommended by the radiologist. Clinically, the patient is improving and she seems to be slightly more awake compared to yesterday. Neurology remains on the case. The patient remains on IV Keppra. No seizure activity has been noted overnight. In terms of her neurologic function is, the patient was showing recovery with improvement of her electrolytes. Subsequently, she went into acute hypoxic respiratory failure and the patient had to be intubated and placed on a mechanical ventilator. Currently sedated and paralyzed. 2 acute Covid 19 infection/pneumonia and the patient is limited infiltration of left lung base, currently intubated on a mechanical ventilator, sedated and paralyzed. 3 acute hypoxic respiratory failure secondary to mucous plug causing complete left lung collapse. The patient underwent bronchoscopy and that is the expansion of the left lung. Nevertheless, she is quite stiff at this point in time and the lungs are poorly compliant and she is requiring high PEEP and high FiO2 and a pO2 over FiO2 ratio is less than 100 consistent with acute lung injury/ARDS. Chest x-ray was noted. Blood gases was noted. There is adequate expansion of the left lung with residual infiltration of the left lung base. On today's chest x-ray, there is improvement in oxygenation. Lung compliance he remains poor. Blood gas shows improvement in the oxygenation and based on that some ventilator changes will be done to wean down the FiO2 and the PEEP. Nevertheless, the patient will be kept sedated and paralyzed for now. Chest x- ray shows reexpansion of the left lung with some ongoing infiltration of the left lung base. The results of the bronchioloalveolar lavage is still pending. 4 acute intravascular volume depletion/dehydration Copious amount of mucus with severe hyperchloremic hypernatremia, improved 5 history of seizure activity. 6 previous history of pulmonary embolism on long-term medical condition with Eliquis 7 paroxysmal atrial fibrillation current rhythm is sinus, currently on IV heparin and the cardiac rhythm is still sinus. 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 The patient also has had a TIA back in 2019. 15 history of gestational diabetes mellitus related to pregnancies 16 history of E. coli urine checked infection. 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 Changes a ventilator into an FiO2 of 50%. Drop the PEEP down to 18 Keep the patient sedated and paralyzed Continue current antibiotic coverage pending further cultures. IV fluids half-normal saline at the rate of 50 mL an hour Lovenox 40 mg SC for DVT prophylaix Continue IV Decadron once a day 6 mg Continue IV Keppra IV Levaquin 500 mg IV and Clindamycin Keep the head of the bed elevated and aspiration precautions. Check inflammatory markers including of his CRP and LDH, elevated Urine cultures and blood cultures and BAL of the left lung pending [facility] Keep this patient ICU. We'll continue to follow. Critical care eval,, > 30 min Time with Patient: Greater than 30
[2021-09-13] MEDS: NOREPINEPHRINE 32 MG in SODIUM CHLORIDE 0.9% 218 ML IV SCH (09:33)
[2021-09-13] MEDS: INSULIN ASPART (NovoLOG) 100 UNIT/ML VIAL SQ SCH ×4 (09:33→18:36)
[2021-09-13] MEDS: DEXAMETHASONE SOD PHOSPHATE 10 MG/ML 1 ML VIAL IVP SCH (09:34)
[2021-09-13] MEDS: CHLORHEXIDINE GLUCONATE 15 ML CUP MUCOUS MEM SCH ×2 (09:34→20:29)
[2021-09-13] MEDS: PANTOPRAZOLE 40 MG/10 ML VIAL IV SCH (09:34)
[2021-09-13] MEDS: ENOXAPARIN 40 MG/0.4 ML SYRINGE SQ SCH (09:34)
[2021-09-13] MEDS: CHOLECALCIFEROL 125 MCG (5000 IU) TABLET PO SCH (09:35)
[2021-09-13] MEDS: AMIODARONE 200 MG TAB PO SCH (09:41)
[2021-09-13] MEDS: carBAMazepine 200 MG TAB PO SCH ×3 (09:41→21:10)
[2021-09-13] MEDS: FLUCONAZOLE IN NACL,ISO-OSM 100 MG in SALINE 1 50ML.BAG IVPB SCH (09:41)
[2021-09-13] MEDS: LEVOFLOXACIN 500MG-D5W PMX 500 MG in DEXTROSE/WATER 1 100ML.BAG IVPB SCH (09:42)
[2021-09-13] MEDS: levETIRAcetam IV 1,500 MG in SALINE 1 100ML.BAG IVPB SCH ×2 (09:42→20:30)
[2021-09-13 12:18] LABS: Glucose,Whole Blood 182 mg/dL (75-99)
[2021-09-13 18:02] LABS: Glucose,Whole Blood 212 mg/dL (75-99)
[2021-09-13] MEDS: ATORVASTATIN 80 MG TAB PO SCH (20:29)
[2021-09-13] MEDS: CISATRACURIUM 200 MG in SODIUM CHLORIDE 0.9% 180 ML IV SCH (22:10)
--- NOTE | 2021-09-13 22:41 | P.PN ---
Subjective This is a pleasant 51 years old female with past medical history of Coronary Artery Disease, Heart Failure, CVA/TIA, Pulmonary Embolus (PE), Seizure Disorder, Last seizure 2009, CVA 2007 with L sided weakness arm and leg and has L foot drop, TIA 2018, cardiomyopathy, R PE and pneumothorax/pneumonia following leg fracture in 1994, gestational diabetes with all pregnancies , bilateral glaucoma with surgery, psoriasis in the past, UTIs. She is a status post Pacemaker, history of Bilateral eye surgery for glaucoma, Anxiety, Depression, Current every day smoker Patient presents because of altered mental status. Information was limited from the patient. It was obtained from the chart and medical staff. Also as per family patient was able to go to the bathroom, was more lethargic and tired over the last day. While in the emergency room focal mild seizure is noticed On admission patient had and fever of 101. She is tachypneic at 26-40, tachycardic 110-140, also she is hypoxic saturating 72% on room air Labs showing WBC of 10.5, hemoglobin of 16.3, platelet count of 197. INR 1.7. Sodium 164, creatinine 1.7, lactic acid elevated 4.6. Liver enzymes elevated with AST 202 and ALT 81. Bilirubin is normal at 1.3. Urine analysis is highly suspicious of infection Urine drug screen is negative Cash versus positive Chest x-ray showing left perihilar and left lower lobe area of infiltrate and small effusion correlates for pneumonia CT of the brain without contrast showing no intracranial hemorrhage, evidence of remote ischemic change. However there is vague low attenuation near the left thalamus and left cerebral peduncle. Acute ischemia in the differential diagnosis. Recommend stat MRI of brain with MRSA [place] of [place] as clinically warranted. In the emergency room patient was started on aztreonam and IV vancomycin, Keppra and heparin drip 09/11/2021 Patient today was still in the ICU, she was very weak and obtunded, she will wake up to certain stabilized and moans, she does not follow commands she cannot, gait she moved both extremities symmetrically. R on she had collapse of her left lung cancer and she has to be intubated and repeat chest x-ray showing better. A of the left lung. She is tachypneic with a breathing rate 22, no more fever since yesterday. Her sodium improved down to 144 and she was started on normal saline, creatinine 1.1, Ejection fraction showed 30-35% which is slice worsened from 06/2021 where it was 35-40% She remains on dexamethasone, IV vancomycin and clindamycin, heparin drip, Keppra and normal saline at 75 mL/h 09/12/2021 Patient with respiratory failures and she was intubated and placed on mechanical ventilation with pulmonary/critical care team following her mostly. There is no more seizure-like activity noticed. She still tachypneic with a breathing rate of 32 blood pressure 100/70, she is needing FiO2 of 80% and PEEP of 20. She has no more fevers since admission. Urine culture is growing gram-negative bacilli. Sodium is 146, WBCs is increased at 16.5 K. PH showing acidosis with 7.1 and elevated pCO2 at 83. Chest x-ray showing left sided opacities with near full. A of the left lung. Patient kept on antibiotics in the form of clindamycin and Levaquin and fluconazole. Also she remains on dexamethasone, and so a heparin to Lovenox. Also continued on seizure medication 1500 mg twice a day and IV fluids per pulmonary team. Neurology team on the case 09/13/2021 Patient remains intubated and sedated with pulmonary/critical care team following her closely. Her PEEP is lower today to 18. She remains on FiO2 of 50%. She is tachypneic at 32 about blood pressure is controlled. Her inflammatory markers are increased to LDH of 1009 and CRP of 25.1. Bicarb is elevated at 31 WBC is 17.7, sodium improved to 142. Creatinine improved to 0.6. Chest x-ray showed improving left lung infiltrate. PH is improved slightly 7.2 with pCO2 is slightly better at 79. Urine culture is growing E. coli which is sensitive to the antibiotics. Currently patient is covered with clindamycin, Levaquin and fluconazole. Also she is on dexamethasone 6 mg, Keppra 1500 mg and half-normal saline at 50 mL per hour Anticoagulation switch from heparin drip and to Lovenox Objective - Vital Signs Vital signs: Vital Signs Temp 98.4 F 09/13/21 09:00 Pulse 97 09/13/21 10:00 Resp 32 H 09/13/21 10:00 BP 100/7 09/13/21 08:00 Pulse Ox 93 L 09/13/21 10:00 Intake & Output 09/12/21 09/13/21 09/13/21 18:59 06:59 18:59 Intake Total 986.3 1312.319 532 Output Total 470 535 170 Balance 516.3 777.319 362 Weight 60.2 kg Intake: IV 886.3 730 262 Aztreonam 2 gm In Sodium 33.3 Chloride 0.9% 100 ml @ 33 .333 mls/hr IVPB Q8H [facility] Rx#:[id number] Clindamycin 600 mg In 50 Dextrose 5% in Water 50 ml @ 50 mls/hr IVPB Q8H [facility] Rx#:[id number] Pressure bag 3 30 12 Sodium Chloride 0.45% 1, 500 550 150 000 ml @ 50 mls/hr IV . Q20H [facility] Rx#:[id number] Sodium Chloride 0.9% 1, 225 000 ml @ 75 mls/hr IV . [id number] [facility] Rx#:[id number] Vancomycin 1,000 mg In 125 Sodium Chloride 0.9% 250 ml @ 125 mls/hr IVPB Q12H [facility] Rx#:[id number] levETIRAcetam IV 1,000 mg 100 100 In Saline 1 100ml.bag @ 400 mls/hr IVPB Q12HR [facility] Rx#:[id number] Intake, IV Titration 100 362.319 150 Amount Cisatracurium 200 mg In 139.594 Sodium Chloride 0.9% 180 ml @ 1 MCG/KG/MIN 3.54 mls/hr IV .Q24H [facility] Rx#: [id number] Fluconazole in NaCl,Iso- 50 Osm 100 mg In Saline 1 50ml.bag @ 50 mls/hr IVPB DAILY [facility] Rx#:[id number] Levofloxacin 500Mg-D5w 100 Pmx 500 mg In Dextrose/ Water 1 100ml.bag @ 100 mls/hr IVPB Q24H [facility] Rx#: [id number] propofoL 1,000 mg In 100 222.725 Empty Bag 1 bag @ Titrate IV .Q0M [facility] Rx#: [id number] Tube Feeding 160 90 Other 60 30 Output: Urine 470 535 170 Other: Voiding Method Indwelling Catheter Indwelling Catheter ABP, PAP, CO, CI - Last Documented Arterial Blood Pressure 118/48 - Exam -GENERAL: The patient is intubated and sedated HEENT: Pupils are round and equally reacting to light. EOMI. No scleral icterus. No conjunctival pallor. Normocephalic, atraumatic. No pharyngeal erythema. No thyromegaly. CARDIOVASCULAR: S1 and S2 present. No murmurs, rubs, or gallops. PULMONARY: Chest is clear to auscultation, no wheezing or crackles. ABDOMEN: Soft, nontender, nondistended, normoactive bowel sounds. No palpable organomegaly. MUSCULOSKELETAL: No joint swelling or deformity. EXTREMITIES: No cyanosis, clubbing, or pedal edema. NEUROLOGICAL: Gross neurological examination did not reveal any focal deficits. SKIN: No rashes. no petechiae. - Labs CBC & Chem 7: 09/13/21 04:00 09/13/21 04:00 Labs: Abnormal Lab Results - Last 24 Hours (Table) 09/10/21 09/12/21 09/12/21 Range/Units 19:55 11:45 11:48 WBC (3.8-10.6) k/uL MCV (80.0-100.0) fL MCHC (31.0-37.0) g/dL Plt Count (150-450) k/uL Neutrophils # (1.3-7.7) k/uL Lymphocytes # (1.0-4.8) k/uL D-Dimer (<0.60) mg/L FEU ABG pH (7.35-7.45) ABG pCO2 (35-45) mmHg ABG pO2 (83-108) mmHg ABG HCO3 (21-25) mmol/L ABG Total CO2 (19-24) mmol/L Carbon Dioxide (22-30) mmol/L BUN (7-17) mg/dL Glucose (74-99) mg/dL POC Glucose (mg/dL) 132 H 133 H (75-99) mg/dL Calcium (8.4-10.2) mg/dL Lactate Dehydrogenase (313-618) U/L C-Reactive Protein (<1.0) mg/dL Levetiracetam 79.2 H (3.0-60.0) ug/mL 09/12/21 09/12/21 09/13/21 Range/Units 17:52 23:59 04:00 WBC (3.8-10.6) k/uL MCV (80.0-100.0) fL MCHC (31.0-37.0) g/dL Plt Count (150-450) k/uL Neutrophils # (1.3-7.7) k/uL Lymphocytes # (1.0-4.8) k/uL D-Dimer 0.81 H (<0.60) mg/L FEU ABG pH (7.35-7.45) ABG pCO2 (35-45) mmHg ABG pO2 (83-108) mmHg ABG HCO3 (21-25) mmol/L ABG Total CO2 (19-24) mmol/L Carbon Dioxide (22-30) mmol/L BUN (7-17) mg/dL Glucose (74-99) mg/dL POC Glucose (mg/dL) 146 H 128 H (75-99) mg/dL Calcium (8.4-10.2) mg/dL Lactate Dehydrogenase (313-618) U/L C-Reactive Protein (<1.0) mg/dL Levetiracetam (3.0-60.0) ug/mL 09/13/21 09/13/21 09/13/21 Range/Units 04:00 04:00 04:00 WBC 17.7 H (3.8-10.6) k/uL MCV 106.8 H (80.0-100.0) fL MCHC 30.6 L (31.0-37.0) g/dL Plt Count 146 L (150-450) k/uL Neutrophils # 16.9 H (1.3-7.7) k/uL Lymphocytes # 0.4 L (1.0-4.8) k/uL D-Dimer (<0.60) mg/L FEU ABG pH (7.35-7.45) ABG pCO2 (35-45) mmHg ABG pO2 (83-108) mmHg ABG HCO3 (21-25) mmol/L ABG Total CO2 (19-24) mmol/L Carbon Dioxide 31 H (22-30) mmol/L BUN 27 H (7-17) mg/dL Glucose 154 H (74-99) mg/dL POC Glucose (mg/dL) (75-99) mg/dL Calcium 8.0 L (8.4-10.2) mg/dL Lactate Dehydrogenase 1009 H (313-618) U/L C-Reactive Protein 25.1 H (<1.0) mg/dL Levetiracetam (3.0-60.0) ug/mL 09/13/21 09/13/21 Range/Units 06:11 06:12 WBC (3.8-10.6) k/uL MCV (80.0-100.0) fL MCHC (31.0-37.0) g/dL Plt Count (150-450) k/uL Neutrophils # (1.3-7.7) k/uL Lymphocytes # (1.0-4.8) k/uL D-Dimer (<0.60) mg/L FEU ABG pH 7.21 L (7.35-7.45) ABG pCO2 79 H* (35-45) mmHg ABG pO2 136 H (83-108) mmHg ABG HCO3 32 H (21-25) mmol/L ABG Total CO2 34 H (19-24) mmol/L Carbon Dioxide (22-30) mmol/L BUN (7-17) mg/dL Glucose (74-99) mg/dL POC Glucose (mg/dL) 138 H (75-99) mg/dL Calcium (8.4-10.2) mg/dL Lactate Dehydrogenase (313-618) U/L C-Reactive Protein (<1.0) mg/dL Levetiracetam (3.0-60.0) ug/mL Microbiology - Last 24 Hours (Table) 09/10/21 12:45 Blood Culture - Preliminary Blood No Growth after 48 hours 09/10/21 13:03 Blood Culture - Preliminary Blood No Growth after 48 hours 09/10/21 11:46 Urine Culture - Preliminary Urine,Clean Catch Gram Neg Bacilli Assessment and Plan Assessment: Altered mental status could be metabolic/toxic encephalopathy, rule out other intracranial lesions, seizure Left lower lobe pneumonia, rule out aspiration pneumonia Sepsis secondary to UTI and pneumonia Breakthrough seizure Acute stroke is suspected with new focus at the left thalamus and left cerebral peduncle Bilateral Covid pneumonia Acute hypoxic respiratory failure Increased inflammatory markers elevated troponin, most likely type II ischemia. Rule out primary cardiac causes Hypernatremia Acute kidney injury Mild elevated liver enzymes History of coronary artery disease History of pulmonary embolism History of seizure disorder, last seizure was in 2009 as per documents History 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 left foot drop History of glaucoma status post surgery Status post permanent pacemaker Nicotine dependence Plan: This is a pleasant 51 years old female who presents with altered mental status, pneumonia, UTI, possible stroke, seizure and possible covid pneumonia Continue with Keppra and neurology consult. MRI of the brain is recommended however I'm not sure if her clinical condition allow doing test, we'll defer this to neurology and pulmonary/critical care team pulmonary consult, continue the broad-spectrum antibiotics with clindamycin and Levaquin and fluconazole. Follow-up sputum and blood Cultures grown sensitive E. coli which is covered Continue with dexamethasone Continue with vitamin C, vitamin D and zinc Pulmonary consult /critical care team consult Cardiology team consult for elevated troponin, patient does not have A. fib per cleaner signs Continue with IV hydration on half-normal saline at 50 mL per hour Labs and medication were reviewed.. Continue same treatment. Continue with symptomatic treatment. Resume home medication. Monitor lytes and vitals. DVT and GI prophylaxis. Further recommendations depends on the clinical course of the patient DVT prophylaxis: Lovenox GI Prophylaxis: Pepcid PT/OT: n/a Prognosis is guarded
[2021-09-13 23:59] LABS: Glucose,Whole Blood 155 mg/dL (75-99)
[2021-09-14] MEDS: INSULIN ASPART (NovoLOG) 100 UNIT/ML VIAL SQ SCH ×4 (00:04→18:57)
[2021-09-14] MEDS: ARTIFICIAL TEARS-HYPROMELLOSE DROPS 15 ML BTL BOTH EYES PRN ×2 (00:05→04:15)
[2021-09-14] MEDS: SODIUM CHLORIDE 0.45% 1,000 ML IV SCH ×2 (00:07→23:17)
[2021-09-14] MEDS: CLINDAMYCIN 600 MG in DEXTROSE 5% IN WATER 50 ML IVPB SCH ×6 (02:00→18:57)
[2021-09-14 04:20] LABS: Basophils % (A) 0 %; Eosinophils % (A) 0 %; HCT 37.1 % (34.0-46.0); HGB 11.3 gm/dL (11.4-16.0); Hypochromasia Marked; Lymphocytes # (A) 0.4 k/uL (1.0-4.8); Lymphocytes % (A) 2 %; MCH 31.7 pg (25.0-35.0); MCHC 30.3 g/dL (31.0-37.0); MCV 104.4 fL (80.0-100.0); Macrocytosis Slight; Monocytes # (A) 0.3 k/uL (0-1.0); Monocytes % (A) 2 %; Neutrophils # (A) 16.7 k/uL (1.3-7.7); Neutrophils % (A) 96 %; Platelet Count 147 k/uL (150-450); RBC 3.56 m/uL (3.80-5.40); RDW 12.9 % (11.5-15.5); WBC 17.4 k/uL (3.8-10.6)
[2021-09-14 04:32] LABS: ALT 49 U/L (4-34); AST 65 U/L (14-36); African American GFR (CKD) >90 (>60 ml/min/1.73 sqM); Albumin 2.2 g/dL (3.5-5.0); Alkaline Phosphatase 63 U/L (38-126); Anion Gap 4 mmol/L; Blood Urea Nitrogen 32 mg/dL (7-17); Calcium 7.1 mg/dL (8.4-10.2); Carbon Dioxide 35 mmol/L (22-30); Chloride 102 mmol/L (98-107); Glucose 161 mg/dL (74-99); LDH 797 U/L (313-618); Non-African American GFR(CKD) 87 (>60 ml/min/1.73 sqM); Potassium 3.6 mmol/L (3.5-5.1); Sodium 141 mmol/L (137-145); Total Bilirubin 0.6 mg/dL (0.2-1.3); Total Protein 4.8 g/dL (6.3-8.2)
[2021-09-14 04:49] LABS: C Reactive Protein 23.2 mg/dL (<1.0)
[2021-09-14 05:43] LABS: ABG Base Excess 8.9 mmol/L; ABG HCO3 36 mmol/L (21-25); ABG Oxygen Saturation 96.4 % (94-97); ABG PH 7.25 (7.35-7.45); ABG PO2 95 mmHg (83-108); ABG TCO2 39 mmol/L (19-24)
[2021-09-14 05:45] LABS: ABG PCO2 82 mmHg (35-45); Allen Test Performed? no
--- NOTE | 2021-09-14 06:56 | XR ---
EXAMINATION TYPE: XR chest 1V portable DATE OF EXAM: 09/14/2021 CLINICAL HISTORY: Difficulty breathing progress study. TECHNIQUE: Single AP portable semiupright view of the chest is obtained. COMPARISON: Chest x-ray from one day earlier and older studies. FINDINGS: Stable endotracheal and orogastric tubes. Cardiac silhouette size is stable and within nor mal limits with single lead pacemaker/AICD. Background Chronic emphysematous change with left basilar opacity. Right lung remains clear. Osseous structures are intact. IMPRESSION: Chronic emphysematous change with left basilar acute infiltrate and/or atelectasis redemo nstrated. No significant change from one day earlier.
[2021-09-14] MEDS ORDERED: POTASSIUM BICARBONATE/CIT AC 20 MEQ TABLET.EFF NG-TUBE SCH (07:00)
[2021-09-14 07:22] LABS: Glucose,Whole Blood 167 mg/dL (75-99)
[2021-09-14] MEDS: NOREPINEPHRINE 32 MG in SODIUM CHLORIDE 0.9% 218 ML IV SCH ×2 (09:30→23:10)
[2021-09-14] MEDS: CHOLECALCIFEROL 125 MCG (5000 IU) TABLET PO SCH (09:33)
[2021-09-14] MEDS: DEXAMETHASONE SOD PHOSPHATE 10 MG/ML 1 ML VIAL IVP SCH (09:33)
[2021-09-14] MEDS: CHLORHEXIDINE GLUCONATE 15 ML CUP MUCOUS MEM SCH ×2 (09:33→20:45)
[2021-09-14] MEDS: carBAMazepine 200 MG TAB PO SCH ×3 (09:33→20:48)
[2021-09-14] MEDS: ENOXAPARIN 40 MG/0.4 ML SYRINGE SQ SCH (09:33)
[2021-09-14] MEDS: FLUCONAZOLE IN NACL,ISO-OSM 100 MG in SALINE 1 50ML.BAG IVPB SCH (09:35)
[2021-09-14] MEDS: LEVOFLOXACIN 500MG-D5W PMX 500 MG in DEXTROSE/WATER 1 100ML.BAG IVPB SCH (09:35)
[2021-09-14] MEDS: PANTOPRAZOLE 40 MG/10 ML VIAL IV SCH (09:36)
[2021-09-14] MEDS: levETIRAcetam IV 1,500 MG in SALINE 1 100ML.BAG IVPB SCH ×2 (09:37→21:06)
[2021-09-14] MEDS: AMIODARONE 200 MG TAB PO SCH (09:44)
[2021-09-14 11:28] LABS: Glucose,Whole Blood 158 mg/dL (75-99)
--- NOTE | 2021-09-14 15:10 | P.PN ---
Subjective Progress Note Date: 09/14/21 Principal diagnosis: Acute COVID-19 pneumonia with acute hypoxic respiratory failure and altered mental status. This is a 51-year-old female patient was brought into because of an altered mental status. The patient was found by her brother was concerned about her mental status. The patient has poor baseline performance and functional status and more recently she wasn't able to take care of herself. She was feeling more lethargic and tired and based on all this, she was brought into the emergency department. In the ED, the patient was having seizures and tachycardia and she was altered and unresponsive. The patient was given IV Ativan. At the time of my evaluation, the patient was quite sedated. No tracheal evidence of a seizure activity and the patient was withdrawing and 4 extremities without any limitation. The patient furthermore was found to have significant abnormalities in her blood work. The patient also tested positive for COVID 19. In summary, the patient was found to have a sodium level LXIV, chloride of 116, FiO2 of 4.6, troponin of 0.3, and UA was abnormal highly suspicious for underlying urine checked infection. Urine drug screen was negative. At this point in time, the patient on IV fluids and the patient is receiving D5 water at the rate of 100 mL an hour. The patient was given a combination of vancomycin and aztreonam as empiric antibiotic coverage. The patient was also started on Decadron 6 mg IV every 12 hours. Chest x-ray showing a left perihilar and lower lobe pulmonary infiltration and the patient is currently on 6 L of oxygen by nasal cannula with a pulse of a 98%. She is in sinus tachycardia. Nevertheless, she has history of atrial fibrillation. She has been minimal, to coagulation with Eliquis and she was also taken amiodarone on outpatient basis. She is also known to have cardiomyopathy with an ejection fraction of 30-35%. On regular inspection, the patient looks quite debilitated. She has a body mass index of 19.7. Very poor oral hygiene and multiple decayed teeth. Her personal hygiene is also poor. 09/13/2021, the patient remains intubated on mechanical ventilator. She was intubated as the patient lost her left lung and there was complete atelectasis of the left lung due to mucous plugs. Bronchoscopy was done post intubation. Reexpansion of the left lung was achieved. Nevertheless, the left lung is infiltrated. Subsequently the patient went into ARDS. At this point in time, the patient is intubated on mechanical ventilator. She remains on a volume cycled mechanical ventilation. She is sedated with propofol running at 50 mcg/kg per minute and the patient is also on Nimbex running at 2 mcg/kg per minute. Hemodynamically, she is stable. On mechanical ventilator, she is an assist-control at the rate of 32 with a tidal volume of 300 and FiO2 of 70% with a PEEP of 20. Morning blood gases showed a pH of 7.21 with a pCO2 of 79 and pO2 of 136. Based on that, further adjustments on a mechanical ventilator with him. On today's chest x-ray, there is no evidence of pneumothorax. Left lung is infiltrated compared to the right and there is still some atelectatic changes and infiltration of the left lung base. The bronchoscopy and the lavage of the left lung was done. Cultures still pending. Urine cultures positive for gram- negative bacillus and the patient is still on a combination of Levaquin and clindamycin. The patient is also on Diflucan due to extensive oropharyngeal candidiasis was noted at a time of intubation. The patient was started on enteral feeding for nutritional support. She is currently receiving vitamin 1.2 at the rate of 20 mL an hour. IV fluids in the form of half-normal saline at the rate of 45 mL an hour. The patient has a white cell count of 17.7, hemoglobin is at 12.7, d-dimer is at 0.8, sodium is at 142, BUN is at 27 with a creatinine of 0.6. LDH level is 1009 and the CRP level is 25. Note that the LDH is lower compared to yesterday. No pressors for now. Urine output is adequate. No fever. No other significant events overnight. Patient was reevaluated today on 09/14/2021, patient remains intubated and mechanically ventilated, she is on assist control rate of 32, tidal volume of 300 FiO2 50%, PEEP 18. ABG showed a pO2 of 95 pCO2 of 82 pH of 7.25. Tidal volume was increased to 325, and PEEP was cut down to 14. Patient remains on propofol at 50 minute, Nimbex at 2 mcg/kg/m. IV fluid is 0.45 at 50 mL per ayah r, and 0.9 normal saline at 20 mL per hour. Patient is on enteral feeding, she is receiving vital 1.4 at 34/34. Patient has a right femoral triple-lumen catheter, right femoral arterial line, I was told that the patient has a large area of decubitus ulcer on her coccyx, hence I recommended consultation to 1 services. Antibiotics martinez she is on clindamycin, fluconazole, and she is also on Levaquin. Patient remains sedated and paralyzed, and I could not assess her mental status. WBC count is 17.4 hemoglobin 11.3, d-dimer is 0.91. Basic metabolic profile is normal renal profile is normal liver enzymes are borderline elevated LDH is 797 C-reactive protein is 23.2. Objective - Vital Signs Vital signs: Vital Signs Temp 98.2 F 09/14/21 12:00 Pulse 102 H 09/14/21 14:00 Resp 32 H 09/14/21 14:00 BP 106/68 09/14/21 14:00 Pulse Ox 94 L 09/14/21 14:00 Intake & Output 09/13/21 09/14/21 09/14/21 18:59 06:59 18:59 Intake Total 1356 1623.251 770 Output Total 720 1515 650 Balance 636 108.251 120 Intake: IV 686 783 418 Clindamycin 600 mg In 50 50 Dextrose 5% in Water 50 ml @ 50 mls/hr IVPB Q8H [facility] Rx#:[id number] Pressure bag 36 33 18 Sodium Chloride 0.45% 1, 550 600 250 000 ml @ 50 mls/hr IV . Q20H [facility] Rx#:[id number] levETIRAcetam IV 1,000 mg 100 100 100 In Saline 1 100ml.bag @ 400 mls/hr IVPB Q12HR [facility] Rx#:[id number] Intake, IV Titration 250 350.251 250 Amount Cisatracurium 200 mg In 180.186 Sodium Chloride 0.9% 180 ml @ 1 MCG/KG/MIN 3.54 mls/hr IV .Q24H [facility] Rx#: [id number] Fluconazole in NaCl,Iso- 50 50 Osm 100 mg In Saline 1 50ml.bag @ 50 mls/hr IVPB DAILY [facility] Rx#:[id number] Levofloxacin 500Mg-D5w 100 100 Pmx 500 mg In Dextrose/ Water 1 100ml.bag @ 100 mls/hr IVPB Q24H [facility] Rx#: [id number] propofoL 1,000 mg In 100 Empty Bag 1 bag @ Titrate IV .Q0M [facility] Rx#: [id number] propofoL 1,000 mg In 170.065 100 Empty Bag 1 bag @ Titrate IV .Q0M [facility] Rx#: [id number] Tube Feeding 330 400 102 Other 90 90 Output: Urine 720 1515 650 Other: Voiding Method Indwelling Catheter Indwelling Catheter Indwelling Catheter ABP, PAP, CO, CI - Last Documented Arterial Blood Pressure 113/53 - Exam -GENERAL: Revealed a 51-year-old female sedated and paralyzed intubated and mechanically ventilated. HEENT: [place], [place], nonicteric, no neck masses, no JVD, endotracheal tube and orogastric tube are intact. CARDIOVASCULAR: S1 and S2 present. No murmurs, rubs, or gallops. PULMONARY: Symmetrical chest expansion crackles at the bases. ABDOMEN: Soft nontender no megaly no rebound no guarding. MUSCULOSKELETAL: No joint swelling or deformity. EXTREMITIES: No cyanosis, clubbing, or pedal edema. NEUROLOGICAL: Cannot assess patient is sedated and paralyzed. SKIN: No rashes. Patient has a large coccygeal ulcer will consult wound services. - Labs CBC & Chem 7: 09/14/21 03:55 09/14/21 03:55 Labs: Abnormal Lab Results - Last 24 Hours (Table) 09/13/21 09/13/21 09/14/21 Range/Units 18:00 23:56 03:55 WBC (3.8-10.6) k/uL RBC (3.80-5.40) m/uL Hgb (11.4-16.0) gm/dL MCV (80.0-100.0) fL MCHC (31.0-37.0) g/dL Plt Count (150-450) k/uL Neutrophils # (1.3-7.7) k/uL Lymphocytes # (1.0-4.8) k/uL D-Dimer 0.91 H (<0.60) mg/L FEU ABG pH (7.35-7.45) ABG pCO2 (35-45) mmHg ABG HCO3 (21-25) mmol/L ABG Total CO2 (19-24) mmol/L Carbon Dioxide (22-30) mmol/L BUN (7-17) mg/dL Glucose (74-99) mg/dL POC Glucose (mg/dL) 212 H 155 H (75-99) mg/dL Calcium (8.4-10.2) mg/dL AST (14-36) U/L ALT (4-34) U/L Lactate Dehydrogenase (313-618) U/L C-Reactive Protein (<1.0) mg/dL Total Protein (6.3-8.2) g/dL Albumin (3.5-5.0) g/dL 09/14/21 09/14/21 09/14/21 Range/Units 03:55 03:55 05:39 WBC 17.4 H (3.8-10.6) k/uL RBC 3.56 L (3.80-5.40) m/uL Hgb 11.3 L (11.4-16.0) gm/dL MCV 104.4 H (80.0-100.0) fL MCHC 30.3 L (31.0-37.0) g/dL Plt Count 147 L (150-450) k/uL Neutrophils # 16.7 H (1.3-7.7) k/uL Lymphocytes # 0.4 L (1.0-4.8) k/uL D-Dimer (<0.60) mg/L FEU ABG pH 7.25 L (7.35-7.45) ABG pCO2 82 H* (35-45) mmHg ABG HCO3 36 H (21-25) mmol/L ABG Total CO2 39 H (19-24) mmol/L Carbon Dioxide 35 H (22-30) mmol/L BUN 32 H (7-17) mg/dL Glucose 161 H (74-99) mg/dL POC Glucose (mg/dL) (75-99) mg/dL Calcium 7.1 L (8.4-10.2) mg/dL AST 65 H (14-36) U/L ALT 49 H (4-34) U/L Lactate Dehydrogenase 797 H (313-618) U/L C-Reactive Protein 23.2 H (<1.0) mg/dL Total Protein 4.8 L (6.3-8.2) g/dL Albumin 2.2 L (3.5-5.0) g/dL 09/14/21 09/14/21 Range/Units 07:20 11:27 WBC (3.8-10.6) k/uL RBC (3.80-5.40) m/uL Hgb (11.4-16.0) gm/dL MCV (80.0-100.0) fL MCHC (31.0-37.0) g/dL Plt Count (150-450) k/uL Neutrophils # (1.3-7.7) k/uL Lymphocytes # (1.0-4.8) k/uL D-Dimer (<0.60) mg/L FEU ABG pH (7.35-7.45) ABG pCO2 (35-45) mmHg ABG HCO3 (21-25) mmol/L ABG Total CO2 (19-24) mmol/L Carbon Dioxide (22-30) mmol/L BUN (7-17) mg/dL Glucose (74-99) mg/dL POC Glucose (mg/dL) 167 H 158 H (75-99) mg/dL Calcium (8.4-10.2) mg/dL AST (14-36) U/L ALT (4-34) U/L Lactate Dehydrogenase (313-618) U/L C-Reactive Protein (<1.0) mg/dL Total Protein (6.3-8.2) g/dL Albumin (3.5-5.0) g/dL Microbiology - Last 24 Hours (Table) 09/10/21 12:45 Blood Culture - Preliminary Blood No Growth after 72 hours 09/10/21 13:03 Blood Culture - Preliminary Blood No Growth after 72 hours 09/10/21 11:46 Urine Culture - Final Urine,Clean Catch Escherichia coli Assessment and Plan Assessment: Impression: Acute hypoxic respiratory failure secondary to COVID-19 pneumonia Altered mental status, multifactorial, acute ischemic stroke is not entirely ruled out. Being followed by neurology. Remains on Keppra, no seizure activity over the last 2 days. Her electrolytes are improving. Patient presented initially with hyponatremia. Acute COVID-19 pneumonia Acute intravascular depletion with dehydration and electrolyte imbalance on her initial presentation. History of seizure activity. Previous history of pulmonary embolism, on long-term treatment with Eliquis. Paroxysmal atrial fibrillation Cardiomyopathy and LV dysfunction with ejection fraction of 30-35%. History of pacemaker implantation. 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 coli urinary tract infection History of psoriasis Sacral /coccygeal decubitus ulcer Recommendation: Continue supportive care measures Continue ventilatory support, changes made today include cutting down the PEEP 14 increased volume to 325 FiO2 of 50%. Continue antibiotics Continue Lovenox 40 mg subcu for DVT Continue IV Decadron Continue Keppra Continue Levaquin and clindamycin continue to monitor inflammatory markers continue enteral feeding continue to monitor in the ICU Patient is critically ill, Critical care time is over 30 minutes. Time with Patient: Greater than 30
[2021-09-14 17:29] LABS: Glucose,Whole Blood 150 mg/dL (75-99)
--- NOTE | 2021-09-14 17:58 | P.PN ---
Subjective Progress Note Date: 09/14/21 I am seeing the patient for the first time for neurological management during this admission. Please review Dr. Chua's note for further details if needed. Per the nurse, no seizure activity reported overnight or to her shift. She stated the patient continues to be on Nimbex and IV Propofol but was decreased on Nimbex from 2 to 1mcg/kg/min. Is on IV Propofol 50mcg/kg/min. Objective - Vital Signs Vital signs: Vital Signs Temp 98.9 F 09/14/21 17:00 Pulse 99 09/14/21 17:00 Resp 32 H 09/14/21 17:00 BP 106/68 09/14/21 14:00 Pulse Ox 96 09/14/21 17:00 Intake & Output 09/13/21 09/14/21 09/14/21 18:59 06:59 18:59 Intake Total 1356 1238.596 7402.073 Output Total 720 1515 975 Balance 636 108.251 263.073 Intake: IV 686 783 630 Clindamycin 600 mg In 50 50 Dextrose 5% in Water 50 ml @ 50 mls/hr IVPB Q8H [facility] Rx#:[id number] Pressure bag 36 33 30 Sodium Chloride 0.45% 1, 550 600 450 000 ml @ 50 mls/hr IV . Q20H [facility] Rx#:[id number] levETIRAcetam IV 1,000 mg 100 100 100 In Saline 1 100ml.bag @ 400 mls/hr IVPB Q12HR [facility] Rx#:[id number] Intake, IV Titration 250 350.251 438.073 Amount Cisatracurium 200 mg In 180.186 120.95 Sodium Chloride 0.9% 180 ml @ 1 MCG/KG/MIN 3.54 mls/hr IV .Q24H [facility] Rx#: [id number] Fluconazole in NaCl,Iso- 50 50 Osm 100 mg In Saline 1 50ml.bag @ 50 mls/hr IVPB DAILY [facility] Rx#:[id number] Levofloxacin 500Mg-D5w 100 100 Pmx 500 mg In Dextrose/ Water 1 100ml.bag @ 100 mls/hr IVPB Q24H [facility] Rx#: [id number] propofoL 1,000 mg In 100 Empty Bag 1 bag @ Titrate IV .Q0M [facility] Rx#: [id number] propofoL 1,000 mg In 170.065 167.123 Empty Bag 1 bag @ Titrate IV .Q0M [facility] Rx#: [id number] Tube Feeding 330 400 170 Other 90 90 Output: Urine 720 1515 975 Other: Voiding Method Indwelling Catheter Indwelling Catheter Indwelling Catheter ABP, PAP, CO, CI - Last Documented Arterial Blood Pressure 122/57 - Exam GENERAL: The patient is lying in bed and is not in acute distress. CHEST: on NE. LUNG: Intubated on ventilator. NEUROLOGICAL: Limited since is on Nimbex from 1mcg/kg/min and IV Propofol 50mcg/kg/min. Higher mental function: Comatose GCS 3 (E1, VT1, M1). No responsive or following commands. Cranial nerves: The pupils are round, pinpoint, equal. No facial weakness. No breathing over the vent (set at 32). Otherwise rest could not be assessed. Motor: The strength is hard to assess because of sedation. Sensation: Could not assess light touch. - Labs CBC & Chem 7: 09/14/21 03:55 09/14/21 03:55 Labs: Abnormal Lab Results - Last 24 Hours (Table) 09/13/21 09/13/21 09/14/21 Range/Units 18:00 23:56 03:55 WBC (3.8-10.6) k/uL RBC (3.80-5.40) m/uL Hgb (11.4-16.0) gm/dL MCV (80.0-100.0) fL MCHC (31.0-37.0) g/dL Plt Count (150-450) k/uL Neutrophils # (1.3-7.7) k/uL Lymphocytes # (1.0-4.8) k/uL D-Dimer 0.91 H (<0.60) mg/L FEU ABG pH (7.35-7.45) ABG pCO2 (35-45) mmHg ABG HCO3 (21-25) mmol/L ABG Total CO2 (19-24) mmol/L Carbon Dioxide (22-30) mmol/L BUN (7-17) mg/dL Glucose (74-99) mg/dL POC Glucose (mg/dL) 212 H 155 H (75-99) mg/dL Calcium (8.4-10.2) mg/dL AST (14-36) U/L ALT (4-34) U/L Lactate Dehydrogenase (313-618) U/L C-Reactive Protein (<1.0) mg/dL Total Protein (6.3-8.2) g/dL Albumin (3.5-5.0) g/dL 09/14/21 09/14/21 09/14/21 Range/Units 03:55 03:55 05:39 WBC 17.4 H (3.8-10.6) k/uL RBC 3.56 L (3.80-5.40) m/uL Hgb 11.3 L (11.4-16.0) gm/dL MCV 104.4 H (80.0-100.0) fL MCHC 30.3 L (31.0-37.0) g/dL Plt Count 147 L (150-450) k/uL Neutrophils # 16.7 H (1.3-7.7) k/uL Lymphocytes # 0.4 L (1.0-4.8) k/uL D-Dimer (<0.60) mg/L FEU ABG pH 7.25 L (7.35-7.45) ABG pCO2 82 H* (35-45) mmHg ABG HCO3 36 H (21-25) mmol/L ABG Total CO2 39 H (19-24) mmol/L Carbon Dioxide 35 H (22-30) mmol/L BUN 32 H (7-17) mg/dL Glucose 161 H (74-99) mg/dL POC Glucose (mg/dL) (75-99) mg/dL Calcium 7.1 L (8.4-10.2) mg/dL AST 65 H (14-36) U/L ALT 49 H (4-34) U/L Lactate Dehydrogenase 797 H (313-618) U/L C-Reactive Protein 23.2 H (<1.0) mg/dL Total Protein 4.8 L (6.3-8.2) g/dL Albumin 2.2 L (3.5-5.0) g/dL 09/14/21 09/14/21 09/14/21 Range/Units 07:20 11:27 17:27 WBC (3.8-10.6) k/uL RBC (3.80-5.40) m/uL Hgb (11.4-16.0) gm/dL MCV (80.0-100.0) fL MCHC (31.0-37.0) g/dL Plt Count (150-450) k/uL Neutrophils # (1.3-7.7) k/uL Lymphocytes # (1.0-4.8) k/uL D-Dimer (<0.60) mg/L FEU ABG pH (7.35-7.45) ABG pCO2 (35-45) mmHg ABG HCO3 (21-25) mmol/L ABG Total CO2 (19-24) mmol/L Carbon Dioxide (22-30) mmol/L BUN (7-17) mg/dL Glucose (74-99) mg/dL POC Glucose (mg/dL) 167 H 158 H 150 H (75-99) mg/dL Calcium (8.4-10.2) mg/dL AST (14-36) U/L ALT (4-34) U/L Lactate Dehydrogenase (313-618) U/L C-Reactive Protein (<1.0) mg/dL Total Protein (6.3-8.2) g/dL Albumin (3.5-5.0) g/dL Microbiology - Last 24 Hours (Table) 09/10/21 12:45 Blood Culture - Preliminary Blood No Growth after 96 hours 09/10/21 13:03 Blood Culture - Preliminary Blood No Growth after 96 hours Assessment and Plan Assessment: * Altered mental status, likely due to toxic metabolic encephalopathy, postictal state and medication effect (Nimbex and IV Propofol). Causes multifactorial as mentioned below. * Breakthrough seizure, likely due to multiple metabolic derangements. Patient had seizure disorder for long time, seizures in remission since 2009. * Acute Covid-19 infection with pneumonia. * Probable acute UTI. 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 * History of pacemaker. Plan: * Patient's blood test shows Tegretol level <3.0, Keppra 79.2 and Neurontin level <1.0. * On Tegretol 200 mg 3 times a dayand Keppra 1500 mg twice a day. * EEG was performed and it is reported as background slowing of at least moderate degree. This is suggestive of generalized cerebral dysfunction as can be seen with toxic metabolic encephalopathy or due to diffuse structural brain abnormality or postictal effect. No epileptiform activity was seen. * Resume anticoagulation with Eliquis as early as possible per Dr. Chua. Cardiology also on board. * Other medical management as per IM, critical care. * Upon discharge, the patient needs to follow-up with a neurologist within 1-2 weeks as outpatient. The plan is discussed with the nurse. Hopefully the sedation will be titrated down further for better exam. Phuc Serrano M.D. Neuro-Hospitalist Time with Patient: Less than 30
[2021-09-14] MEDS: POTASSIUM BICARBONATE/CIT AC 20 MEQ TABLET.EFF NG-TUBE SCH ×3 (20:46→23:54)
[2021-09-14] MEDS: ATORVASTATIN 80 MG TAB PO SCH (20:46)
--- NOTE | 2021-09-14 21:23 | P.PN ---
Subjective This is a pleasant 51 years old female with past medical history of Coronary Artery Disease, Heart Failure, CVA/TIA, Pulmonary Embolus (PE), Seizure Disorder, Last seizure 2009, CVA 2007 with L sided weakness arm and leg and has L foot drop, TIA 2018, cardiomyopathy, R PE and pneumothorax/pneumonia following leg fracture in 1994, gestational diabetes with all pregnancies , bilateral glaucoma with surgery, psoriasis in the past, UTIs. She is a status post Pacemaker, history of Bilateral eye surgery for glaucoma, Anxiety, Depression, Current every day smoker Patient presents because of altered mental status. Information was limited from the patient. It was obtained from the chart and medical staff. Also as per family patient was able to go to the bathroom, was more lethargic and tired over the last day. While in the emergency room focal mild seizure is noticed On admission patient had and fever of 101. She is tachypneic at 26-40, tachycardic 110-140, also she is hypoxic saturating 72% on room air Labs showing WBC of 10.5, hemoglobin of 16.3, platelet count of 197. INR 1.7. Sodium 164, creatinine 1.7, lactic acid elevated 4.6. Liver enzymes elevated with AST 202 and ALT 81. Bilirubin is normal at 1.3. Urine analysis is highly suspicious of infection Urine drug screen is negative Cash versus positive Chest x-ray showing left perihilar and left lower lobe area of infiltrate and small effusion correlates for pneumonia CT of the brain without contrast showing no intracranial hemorrhage, evidence of remote ischemic change. However there is vague low attenuation near the left thalamus and left cerebral peduncle. Acute ischemia in the differential diagnosis. Recommend stat MRI of brain with MRSA [place] of [place] as clinically warranted. In the emergency room patient was started on aztreonam and IV vancomycin, Keppra and heparin drip 09/11/2021 Patient today was still in the ICU, she was very weak and obtunded, she will wake up to certain stabilized and moans, she does not follow commands she cannot, gait she moved both extremities symmetrically. R on she had collapse of her left lung cancer and she has to be intubated and repeat chest x-ray showing better. A of the left lung. She is tachypneic with a breathing rate 22, no more fever since yesterday. Her sodium improved down to 144 and she was started on normal saline, creatinine 1.1, Ejection fraction showed 30-35% which is slice worsened from 06/2021 where it was 35-40% She remains on dexamethasone, IV vancomycin and clindamycin, heparin drip, Keppra and normal saline at 75 mL/h 09/12/2021 Patient with respiratory failures and she was intubated and placed on mechanical ventilation with pulmonary/critical care team following her mostly. There is no more seizure-like activity noticed. She still tachypneic with a breathing rate of 32 blood pressure 100/70, she is needing FiO2 of 80% and PEEP of 20. She has no more fevers since admission. Urine culture is growing gram-negative bacilli. Sodium is 146, WBCs is increased at 16.5 K. PH showing acidosis with 7.1 and elevated pCO2 at 83. Chest x-ray showing left sided opacities with near full. A of the left lung. Patient kept on antibiotics in the form of clindamycin and Levaquin and fluconazole. Also she remains on dexamethasone, and so a heparin to Lovenox. Also continued on seizure medication 1500 mg twice a day and IV fluids per pulmonary team. Neurology team on the case 09/13/2021 Patient remains intubated and sedated with pulmonary/critical care team following her closely. Her PEEP is lower today to 18. She remains on FiO2 of 50%. She is tachypneic at 32 about blood pressure is controlled. Her inflammatory markers are increased to LDH of 1009 and CRP of 25.1. Bicarb is elevated at 31 WBC is 17.7, sodium improved to 142. Creatinine improved to 0.6. Chest x-ray showed improving left lung infiltrate. PH is improved slightly 7.2 with pCO2 is slightly better at 79. Urine culture is growing E. coli which is sensitive to the antibiotics. Currently patient is covered with clindamycin, Levaquin and fluconazole. Also she is on dexamethasone 6 mg, Keppra 1500 mg and half-normal saline at 50 mL per hour Anticoagulation switch from heparin drip and to Lovenox 09/14/2021 Patient still intubated and sedated on mechanical ventilation with pulmonary/critical care team following her closely and just her vent setting. Today her FiO2 of 55%, and she is tachypneic at 33 breath per minute. Labs showing stable findings with sodium 141, creatinine 0.8, liver enzymes slightly elevated, LDH slightly down at 797 and CRP 2-3.2. Same leukocytosis at 14.7. Her pH is 7.2 and carbon dioxide is 82. D-dimer mildly elevated at 0.9, just x-ray showing bilateral infiltrate with no significant change from prior. She remains on the same antibiotic of clindamycin, Levaquin, dexamethasone, Keppra 1500 mg and half normal saline at 50 mL/h Objective - Vital Signs Vital signs: Vital Signs Temp 99.2 F 09/14/21 09:00 Pulse 106 H 09/14/21 10:00 Resp 32 H 09/14/21 10:00 BP 116/67 09/14/21 10:00 Pulse Ox 96 09/14/21 10:00 Intake & Output 09/13/21 09/14/21 09/14/21 18:59 06:59 18:59 Intake Total 1356 1623.251 446 Output Total 720 1515 500 Balance 636 108.251 -54 Intake: IV 686 783 262 Clindamycin 600 mg In 50 Dextrose 5% in Water 50 ml @ 50 mls/hr IVPB Q8H [facility] Rx#:[id number] Pressure bag 36 33 12 Sodium Chloride 0.45% 1, 550 600 150 000 ml @ 50 mls/hr IV . Q20H [facility] Rx#:[id number] levETIRAcetam IV 1,000 mg 100 100 100 In Saline 1 100ml.bag @ 400 mls/hr IVPB Q12HR [facility] Rx#:[id number] Intake, IV Titration 250 350.251 150 Amount Cisatracurium 200 mg In 180.186 Sodium Chloride 0.9% 180 ml @ 1 MCG/KG/MIN 3.54 mls/hr IV .Q24H [facility] Rx#: [id number] Fluconazole in NaCl,Iso- 50 50 Osm 100 mg In Saline 1 50ml.bag @ 50 mls/hr IVPB DAILY [facility] Rx#:[id number] Levofloxacin 500Mg-D5w 100 100 Pmx 500 mg In Dextrose/ Water 1 100ml.bag @ 100 mls/hr IVPB Q24H [facility] Rx#: [id number] propofoL 1,000 mg In 100 Empty Bag 1 bag @ Titrate IV .Q0M [facility] Rx#: [id number] propofoL 1,000 mg In 170.065 Empty Bag 1 bag @ Titrate IV .Q0M [facility] Rx#: [id number] Tube Feeding 330 400 34 Other 90 90 Output: Urine 720 1515 500 Other: Voiding Method Indwelling Catheter Indwelling Catheter ABP, PAP, CO, CI - Last Documented Arterial Blood Pressure 112/42 - Exam -GENERAL: The patient is intubated and sedated HEENT: Pupils are round and equally reacting to light. EOMI. No scleral icterus. No conjunctival pallor. Normocephalic, atraumatic. No pharyngeal erythema. No thyromegaly. CARDIOVASCULAR: S1 and S2 present. No murmurs, rubs, or gallops. PULMONARY: Chest is clear to auscultation, no wheezing or crackles. ABDOMEN: Soft, nontender, nondistended, normoactive bowel sounds. No palpable organomegaly. MUSCULOSKELETAL: No joint swelling or deformity. EXTREMITIES: No cyanosis, clubbing, or pedal edema. NEUROLOGICAL: Gross neurological examination did not reveal any focal deficits. SKIN: No rashes. no petechiae. - Labs CBC & Chem 7: 09/14/21 03:55 09/14/21 03:55 Labs: Abnormal Lab Results - Last 24 Hours (Table) 09/13/21 09/13/21 09/13/21 Range/Units 12:16 18:00 23:56 WBC (3.8-10.6) k/uL RBC (3.80-5.40) m/uL Hgb (11.4-16.0) gm/dL MCV (80.0-100.0) fL MCHC (31.0-37.0) g/dL Plt Count (150-450) k/uL Neutrophils # (1.3-7.7) k/uL Lymphocytes # (1.0-4.8) k/uL D-Dimer (<0.60) mg/L FEU ABG pH (7.35-7.45) ABG pCO2 (35-45) mmHg ABG HCO3 (21-25) mmol/L ABG Total CO2 (19-24) mmol/L Carbon Dioxide (22-30) mmol/L BUN (7-17) mg/dL Glucose (74-99) mg/dL POC Glucose (mg/dL) 182 H 212 H 155 H (75-99) mg/dL Calcium (8.4-10.2) mg/dL AST (14-36) U/L ALT (4-34) U/L Lactate Dehydrogenase (313-618) U/L C-Reactive Protein (<1.0) mg/dL Total Protein (6.3-8.2) g/dL Albumin (3.5-5.0) g/dL 09/14/21 09/14/21 09/14/21 Range/Units 03:55 03:55 03:55 WBC 17.4 H (3.8-10.6) k/uL RBC 3.56 L (3.80-5.40) m/uL Hgb 11.3 L (11.4-16.0) gm/dL MCV 104.4 H (80.0-100.0) fL MCHC 30.3 L (31.0-37.0) g/dL Plt Count 147 L (150-450) k/uL Neutrophils # 16.7 H (1.3-7.7) k/uL Lymphocytes # 0.4 L (1.0-4.8) k/uL D-Dimer 0.91 H (<0.60) mg/L FEU ABG pH (7.35-7.45) ABG pCO2 (35-45) mmHg ABG HCO3 (21-25) mmol/L ABG Total CO2 (19-24) mmol/L Carbon Dioxide 35 H (22-30) mmol/L BUN 32 H (7-17) mg/dL Glucose 161 H (74-99) mg/dL POC Glucose (mg/dL) (75-99) mg/dL Calcium 7.1 L (8.4-10.2) mg/dL AST 65 H (14-36) U/L ALT 49 H (4-34) U/L Lactate Dehydrogenase 797 H (313-618) U/L C-Reactive Protein 23.2 H (<1.0) mg/dL Total Protein 4.8 L (6.3-8.2) g/dL Albumin 2.2 L (3.5-5.0) g/dL 09/14/21 09/14/21 Range/Units 05:39 07:20 WBC (3.8-10.6) k/uL RBC (3.80-5.40) m/uL Hgb (11.4-16.0) gm/dL MCV (80.0-100.0) fL MCHC (31.0-37.0) g/dL Plt Count (150-450) k/uL Neutrophils # (1.3-7.7) k/uL Lymphocytes # (1.0-4.8) k/uL D-Dimer (<0.60) mg/L FEU ABG pH 7.25 L (7.35-7.45) ABG pCO2 82 H* (35-45) mmHg ABG HCO3 36 H (21-25) mmol/L ABG Total CO2 39 H (19-24) mmol/L Carbon Dioxide (22-30) mmol/L BUN (7-17) mg/dL Glucose (74-99) mg/dL POC Glucose (mg/dL) 167 H (75-99) mg/dL Calcium (8.4-10.2) mg/dL AST (14-36) U/L ALT (4-34) U/L Lactate Dehydrogenase (313-618) U/L C-Reactive Protein (<1.0) mg/dL Total Protein (6.3-8.2) g/dL Albumin (3.5-5.0) g/dL Microbiology - Last 24 Hours (Table) 09/10/21 12:45 Blood Culture - Preliminary Blood No Growth after 72 hours 09/10/21 13:03 Blood Culture - Preliminary Blood No Growth after 72 hours 09/10/21 11:46 Urine Culture - Final Urine,Clean Catch Escherichia coli Assessment and Plan Assessment: Altered mental status could be metabolic/toxic encephalopathy, rule out other intracranial lesions, seizure Left lower lobe pneumonia, rule out aspiration pneumonia Sepsis secondary to UTI and pneumonia Breakthrough seizure Acute stroke is suspected with new focus at the left thalamus and left cerebral peduncle Bilateral Covid pneumonia Acute hypoxic respiratory failure Increased inflammatory markers elevated troponin, most likely type II ischemia. Rule out primary cardiac ca uses Hypernatremia Acute kidney injury Mild elevated liver enzymes History of coronary artery disease History of pulmonary embolism History of seizure disorder, last seizure was in 2009 as per documents History 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 left foot drop History of glaucoma status post surgery Status post permanent pacemaker Nicotine dependence Plan: This is a pleasant 51 years old female who presents with altered mental status, pneumonia, UTI, possible stroke, seizure and possible covid pneumonia Continue with Keppra and neurology consult. MRI of the brain is recommended however I'm not sure if her clinical condition allow doing test, we'll defer this to neurology and pulmonary/critical care team pulmonary consult, continue the broad-spectrum antibiotics with clindamycin and Levaquin and fluconazole. Follow-up sputum and blood Cultures grown sensitive E. coli which is covered Continue with dexamethasone Continue with vitamin C, vitamin D and zinc Pulmonary consult /critical care team consult Cardiology team consult for elevated troponin, patient does not have A. fib per earth moving technician Continue with IV hydration on half-normal saline at 50 mL per hour Labs and medication were reviewed.. Continue same treatment. Continue with sym ptomatic treatment. Resume home medication. Monitor lytes and vitals. DVT and GI prophylaxis. Further recommendations depends on the clinical course of the patient DVT prophylaxis: Lovenox GI Prophylaxis: Pepcid PT/OT: n/a Prognosis is guarded
--- NOTE | 2021-09-14 21:46 | P.CONS ---
History of Present Illness - Reason for Consult Consult date: 09/14/21 covid 19 , pressure ulcer Requesting physician: Pete Moreno - Chief Complaint mental status changes x few days - History of Present Illness History of present illness : Patient is a 51-year-old female presenting to the hospital on September 10, 2021 for evaluation of mental status changes patient apparently was noticing more tired and lethargic all day or 2 before the patient was brought into the hospital, on arrival to the ER the patient did have a fever of 101 degrees phono tight nausea had recorded since then patient did have a normal white count until 2 days ago when she was noticed to have a white count up to 16.5 patient did have elevated BUN and creatinine was normal troponins were elevated Lumizyme's are elevated and her urine was positive urine testing was negative patient did have positive COVID test. He subsequently came back positive for E. coli which is sensitive pathogen patient did have penicillin and cephalexin allergy and the patient has been treated with multiple antibiotics including Levaquin fluconazole clindamycin patient chest x- ray on elevation left perihilar left lower lobe infiltrate concerning for pneumonia chest x-ray completed this morning that shows chronic emphysematous change with left basilar acute infiltrate and or atelectasis redemonstrated no significant change patient did have blood cultures which has been negative so far no sputum has been collected given the patient is on the ventilator and patient was considered a because of COVID and the surgical wound to the coccyx area all of the information has been obtained from review of the chart as the patient is currently be on the vent and cannot provide any history Review of system: Positive point has been mentioned in HPI complete review could not be obtained because of underlying mental status Past medical history : Reviewed, documented below Past surgical history : Reviewed, documented below Social history: Reviewed, documented below Medications: Reviewed, as documented below EXAMINATION: Vital sigans= Reviewed and documented below GENERAL DESCRIPTION: Middle-aged female intubated on the vent, no distress. No tachypnea or accessory muscle of respiration use. HEENT: Shows Pallor , no scleral icterus. Patient is orally intubated NECK: Trachea central, no thyromegaly. LUNGS: Unlabored breathing. Decreased visible in the base. No wheeze or crackle. HEART: S1, S2, regular rate and rhythm. ABDOMEN: Soft, no tenderness , guarding or rigidity EXTREMITIES: No edema of feet. SKIN: No rash, no masses palpable. Patient did have a deep tissue injury to the sacral and the upper back area no skin breakdown surrounding redness or any d rainage NEUROLOGICAL: The patient is sedated on the vent LABS AND RADIOLOGY: Reviewed results see below Assessment : 1-patient presented to hospital with mental status changes weakness this week to have a fever on presentation to the hospital likely seem to COVID- 19 pneumonia clinic suspicious for a secondary bacterial pneumonia less likely however in view of the unresponsiveness and intubation aspiration mellitus monitor Read 2-E. coli urinary tract infection 3-deep tissue injury to the sacral area as well as upper back with no cellulitis 4-patient with multiple antibiotic allergies that would limit the number of antibiotics safe to use Plan: 1-obtain sputum for gram stain and culture 2-recheck inflammatory markers including procalcitonin 3-continue with the Levaquin and clinda, discontinue Diflucan 4-keep the area of deep tissue injury to the back dry and of the pressure We will follow on clinical condition and cultures to further adjust medication if needed Thank you for this consultation we will follow the patient along with you Past Medical History Past Medical History: Coronary Artery Disease (CAD), Heart Failure, CVA/TIA, Eye Disorder, Pneumonia, Pulmonary Embolus (PE), Seizure Disorder, Skin Disorder Additional Past Medical History / Comment(s): Last seizure 2009, CVA 2007 with L sided weakness arm and leg and has L foot drop, TIA 2018, cardiomyopathy, R PE and pneumothorax/pneumonia following leg fracture in 1994, gestational diabetes with all pregnancies (4), bilateral glaucoma with surgery, psoriasis in the past, UTIs. History of Any Multi-Drug Resistant Organisms: None Reported Past Surgical History: Pacemaker Additional Past Surgical History / Comment(s): Bilateral eye surgery for glaucoma Past Anesthesia/Blood Transfusion Reactions: No Reported Reaction Type of Cardiac Device: Permanent Pacemaker Device Placement Date:: 2012 Past Psychological History: Anxiety, Depression Smoking Status: Current every day smoker Past Alcohol Use History: Occasional Past Drug Use History: None Reported - Past Family History Father Family Medical History: Coronary Artery Disease (CAD), Myocardial Infarction (IL) Additional Family Medical History / Comment(s): Father is 75 yrs old. He had a silent [place]. Mother Additional Family Medical History / Comment(s): Mother is at 32 yrs d/t cardiomyopathy Medications and Allergies Home Medications Medication Instructions Recorded Confirmed Type Atorvastatin Calcium [Lipitor] 80 mg PO HS 03/08/14 09/10/21 History levETIRAcetam [Keppra] 1,500 mg PO BID 03/22/17 09/10/21 History Gabapentin 600 mg PO TID 02/20/19 09/10/21 History Amiodarone [Cordarone] 200 mg PO DAILY 02/22/20 09/10/21 History carBAMazepine [TEGretol] 200 mg PO TID 02/22/20 09/10/21 History Apixaban [Eliquis] 5 mg PO BID 07/21/21 09/10/21 History Spironolactone [Aldactone] 25 mg PO DAILY 07/21/21 09/10/21 History Cholecalciferol [Vitamin D3 (125 125 mcg PO DAILY #30 tablet 07/22/21 09/10/21 Rx Mcg = 5000 Iu)] Allergies Allergy/AdvReac Type Severity Reaction Status Date / Time cephalexin monohydrate Allergy Rash/Hives Verified 09/10/21 11:26 [From [facility]] Penicillins Allergy Anaphylaxis Verified 09/10/21 11:26 Physical Exam Vitals: Vital Signs Temp Pulse Resp BP Pulse Ox 09/14/21 12:00 98.2 F 98 32 H 106/62 95 09/14/21 11:00 108 H 32 H 107/63 95 09/14/21 10:00 106 H 32 H 116/67 96 09/14/21 09:00 99.2 F 104 H 32 H 114/67 95 09/14/21 08:00 104 H 32 H 109/65 95 09/14/21 07:00 104 H 32 H 114/66 95 09/14/21 06:00 105 H 32 H 117/67 95 09/14/21 05:00 101 H 32 H 119/70 95 09/14/21 04:00 98.7 F 104 H 32 H 130/70 95 09/14/21 03:00 100 32 H 121/68 95 09/14/21 02:00 102 H 33 H 121/65 95 09/14/21 01:00 100 32 H 116/66 95 09/14/21 00:00 98.7 F 101 H 32 H 116/67 95 09/13/21 23:00 103 H 32 H 121/66 95 09/13/21 22:00 100 32 H 119/72 96 09/13/21 21:00 97 32 H 116/72 95 09/13/21 20:00 98.9 F 96 32 H 120/73 95 09/13/21 19:00 96 32 H 121/83 96 09/13/21 18:00 83 32 H 95 09/13/21 17:00 90 32 H 97 09/13/21 16:00 98.1 F 92 32 H 97 09/13/21 15:00 90 32 H 97 09/13/21 14:00 89 22 96 Intake and Output 09/13/21 09/14/21 09/14/21 22:59 06:59 14:59 Intake Total 1012.186 973.065 670 Output Total 820 1065 650 Balance 192.186 -91.935 20 Intake: IV 524 471 418 Clindamycin 600 mg In 50 50 Dextrose 5% in Water 50 ml @ 50 mls/hr IVPB Q8H [facility] Rx#:[id number] Pressure bag 24 21 18 Sodium Chloride 0.45% 1, 400 400 250 000 ml @ 50 mls/hr IV . Q20H [facility] Rx#:[id number] levETIRAcetam IV 1,000 mg 100 100 In Saline 1 100ml.bag @ 400 mls/hr IVPB Q12HR [facility]IE Rx#:[id number] Intake, IV Titration 180.186 170.065 150 Amount Cisatracurium 200 mg In 180.186 Sodium Chloride 0.9% 180 ml @ 1 MCG/KG/MIN 3.54 mls/hr IV .Q24H [facility]IE Rx#: [id number] Fluconazole in NaCl,Iso- 50 Osm 100 mg In Saline 1 50ml.bag @ 50 mls/hr IVPB DAILY [facility]IE Rx#:[id number] Levofloxacin 500Mg-D5w 100 Pmx 500 mg In Dextrose/ Water 1 100ml.bag @ 100 mls/hr IVPB Q24H [facility]IE Rx#: [id number] propofoL 1,000 mg In 170.065 Empty Bag 1 bag @ Titrate IV .Q0M ADDIE Rx#: [id number] Tube Feeding 248 272 102 Other 60 60 Output: Urine 820 1065 650 Other: Voiding Method Indwelling Catheter Indwelling Catheter ABP, PAP, CO, CI - Last 8 Hours Arterial Blood Pressure 117/56 Arterial Blood Pressure 109/42 Arterial Blood Pressure 112/42 Arterial Blood Pressure 118/48 Arterial Blood Pressure 120/47 Arterial Blood Pressure 118/49 Arterial Blood Pressure 119/44 Results CBC & Chem 7: 09/14/21 03:55 09/14/21 03:55 Labs: Abnormal Lab Results - Last 24 Hours (Table) 09/13/21 09/13/21 09/14/21 Range/Units 18:00 23:56 03:55 WBC (3.8-10.6) k/uL RBC (3.80-5.40) m/uL Hgb (11.4-16.0) gm/dL MCV (80.0-100.0) fL MCHC (31.0-37.0) g/dL Plt Count (150-450) k/uL Neutrophils # (1.3-7.7) k/uL Lymphocytes # (1.0-4.8) k/uL D-Dimer 0.91 H (<0.60) mg/L FEU ABG pH (7.35-7.45) ABG pCO2 (35-45) mmHg ABG HCO3 (21-25) mmol/L ABG Total CO2 (19-24) mmol/L Carbon Dioxide (22-30) mmol/L BUN (7-17) mg/dL Glucose (74-99) mg/dL POC Glucose (mg/dL) 212 H 155 H (75-99) mg/dL Calcium (8.4-10.2) mg/dL AST (14-36) U/L ALT (4-34) U/L Lactate Dehydrogenase (313-618) U/L C-Reactive Protein (<1.0) mg/dL Total Protein (6.3-8.2) g/dL Albumin (3.5-5.0) g/dL 09/14/21 09/14/21 09/14/21 Range/Units 03:55 03:55 05:39 WBC 17.4 H (3.8-10.6) k/uL RBC 3.56 L (3.80-5.40) m/uL Hgb 11.3 L (11.4-16.0) gm/dL MCV 104.4 H (80.0-100.0) fL MCHC 30.3 L (31.0-37.0) g/dL Plt Count 147 L (150-450) k/uL Neutrophils # 16.7 H (1.3-7.7) k/uL Lymphocytes # 0.4 L (1.0-4.8) k/uL D-Dimer (<0.60) mg/L FEU ABG pH 7.25 L (7.35-7.45) ABG pCO2 82 H* (35-45) mmHg ABG HCO3 36 H (21-25) mmol/L ABG Total CO2 39 H (19-24) mmol/L Carbon Dioxide 35 H (22-30) mmol/L BUN 32 H (7-17) mg/dL Glucose 161 H (74-99) mg/dL POC Glucose (mg/dL) (75-99) mg/dL Calcium 7.1 L (8.4-10.2) mg/dL AST 65 H (14-36) U/L ALT 49 H (4-34) U/L Lactate Dehydrogenase 797 H (313-618) U/L C-Reactive Protein 23.2 H (<1.0) mg/dL Total Protein 4.8 L (6.3-8.2) g/dL Albumin 2.2 L (3.5-5.0) g/dL 09/14/21 09/14/21 Range/Units 07:20 11:27 WBC (3.8-10.6) k/uL RBC (3.80-5.40) m/uL Hgb (11.4-16.0) gm/dL MCV (80.0-100.0) fL MCHC (31.0-37.0) g/dL Plt Count (150-450) k/uL Neutrophils # (1.3-7.7) k/uL Lymphocytes # (1.0-4.8) k/uL D-Dimer (<0.60) mg/L FEU ABG pH (7.35-7.45) ABG pCO2 (35-45) mmHg ABG HCO3 (21-25) mmol/L ABG Total CO2 (19-24) mmol/L Carbon Dioxide (22-30) mmol/L BUN (7-17) mg/dL Glucose (74-99) mg/dL POC Glucose (mg/dL) 167 H 158 H (75-99) mg/dL Calcium (8.4-10.2) mg/dL AST (14-36) U/L ALT (4-34) U/L Lactate Dehydrogenase (313-618) U/L C-Reactive Protein (<1.0) mg/dL Total Protein (6.3-8.2) g/dL Albumin (3.5-5.0) g/dL Microbiology - Last 24 Hours (Table) 09/10/21 12:45 Blood Culture - Preliminary Blood No Growth after 72 hours 09/10/21 13:03 Blood Culture - Preliminary Blood No Growth after 72 hours 09/10/21 11:46 Urine Culture - Final Urine,Clean Catch Escherichia coli
[2021-09-14] MEDS: CISATRACURIUM 200 MG in SODIUM CHLORIDE 0.9% 180 ML IV SCH (23:09)
[2021-09-14 23:47] LABS: Glucose,Whole Blood 129 mg/dL (75-99)
[2021-09-15] MEDS: POTASSIUM BICARBONATE/CIT AC 20 MEQ TABLET.EFF NG-TUBE SCH (01:11)
[2021-09-15] MEDS: INSULIN ASPART (NovoLOG) 100 UNIT/ML VIAL SQ SCH ×4 (01:14→18:00)
[2021-09-15] MEDS: CLINDAMYCIN 600 MG in DEXTROSE 5% IN WATER 50 ML IVPB SCH ×6 (01:23→18:00)
[2021-09-15] MEDS: CISATRACURIUM 200 MG in SODIUM CHLORIDE 0.9% 180 ML IV SCH (01:58)
[2021-09-15 05:24] LABS: C Reactive Protein 19.6 mg/dL (<1.0)
[2021-09-15 05:42] LABS: African American GFR (CKD) >90 (>60 ml/min/1.73 sqM); Blood Urea Nitrogen 33 mg/dL (7-17); Calcium 7.1 mg/dL (8.4-10.2); Chloride 97 mmol/L (98-107); Glucose 122 mg/dL (74-99); Non-African American GFR(CKD) 78 (>60 ml/min/1.73 sqM); Potassium 4.3 mmol/L (3.5-5.1); Sodium 140 mmol/L (137-145)
[2021-09-15 05:49] LABS: Anion Gap 5 mmol/L; Basophils % (A) 0 %; Carbon Dioxide 38 mmol/L (22-30); Eosinophils % (A) 0 %; HCT 32.1 % (34.0-46.0); Hypochromasia Slight; Lymphocytes # (A) 0.6 k/uL (1.0-4.8); Lymphocytes % (A) 6 %; MCH 31.8 pg (25.0-35.0); MCHC 31.1 g/dL (31.0-37.0); MCV 102.2 fL (80.0-100.0); Macrocytosis Slight; Mean Platelet Volume 10.6; Monocytes # (A) 0.3 k/uL (0-1.0); Monocytes % (A) 2 %; Neutrophils # (A) 10.3 k/uL (1.3-7.7); Neutrophils % (A) 91 %; Platelet Count 152 k/uL (150-450); RBC 3.14 m/uL (3.80-5.40); RDW 13.1 % (11.5-15.5); WBC 11.3 k/uL (3.8-10.6)
[2021-09-15 06:06] LABS: ABG Base Excess 18.1 mmol/L; ABG Oxygen Saturation 95.6 % (94-97); ABG PH 7.37 (7.35-7.45); ABG PO2 93 mmHg (83-108); ABG TCO2 46 mmol/L (19-24)
[2021-09-15 06:09] LABS: ABG PCO2 75 mmHg (35-45)
[2021-09-15 06:10] LABS: ABG HCO3 43 mmol/L (21-25); Allen Test Performed? NO
[2021-09-15 06:22] LABS: Glucose,Whole Blood 146 mg/dL (75-99)
--- NOTE | 2021-09-15 08:10 | XR ---
EXAMINATION TYPE: XR chest 1V portable DATE OF EXAM: 09/15/2021 COMPARISON: 09/14/2021 INDICATION: Tube placement TECHNIQUE: Single frontal view of the chest is obtained. FINDINGS: The heart size is normal. The pulmonary vasculature is normal. There is hyperinflation. Mild left lower lobe infiltrate is present which may be slightly worsened. P acemaker overlies left chest Endotracheal tube tip is above the polo. Nasogastric tube transverses the thorax. IMPRESSION: 1. Mild worsening left lower lobe infiltrate. 2. Lines and catheters as discussed above
[2021-09-15] MEDS: DEXAMETHASONE SOD PHOSPHATE 10 MG/ML 1 ML VIAL IVP SCH (08:21)
[2021-09-15] MEDS: ENOXAPARIN 40 MG/0.4 ML SYRINGE SQ SCH (08:21)
[2021-09-15] MEDS: AMIODARONE 200 MG TAB PO SCH (08:21)
[2021-09-15] MEDS: PANTOPRAZOLE 40 MG/10 ML VIAL IV SCH (08:21)
[2021-09-15] MEDS: CHOLECALCIFEROL 125 MCG (5000 IU) TABLET PO SCH (08:21)
[2021-09-15] MEDS: carBAMazepine 200 MG TAB PO SCH ×3 (08:22→20:15)
[2021-09-15] MEDS: CHLORHEXIDINE GLUCONATE 15 ML CUP MUCOUS MEM SCH ×2 (08:22→20:14)
[2021-09-15] MEDS: levETIRAcetam IV 1,500 MG in SALINE 1 100ML.BAG IVPB SCH ×2 (08:22→20:14)
[2021-09-15] MEDS: LEVOFLOXACIN 500MG-D5W PMX 500 MG in DEXTROSE/WATER 1 100ML.BAG IVPB SCH (08:23)
[2021-09-15 11:58] LABS: Glucose,Whole Blood 151 mg/dL (75-99)
--- NOTE | 2021-09-15 12:01 | CDI ---
Documentation Clarification Form Date: 09/15/2021 11:40:37 AM From: Maddi JonesZEFERINO choi, CCDS Admit Date: 09/10/2021 02:38:00 PM Patient Name: Hannah Campos Visit Number: [id number] Discharge Date: ATTENTION: The Clinical Documentation Specialists (CDI) and [facility] Coding Staff appreciate your assistance in clarifying documentation. Please respond to the clarification below the line at the bottom and electronically sign. The CDI & [facility] Coding staff will review the response and follow-up if needed. Please note: Queries are made part of the Legal Health Record. If you have any questions, please contact the author of this message via ITS. Dr. Karina De Dios: Per the 09/14 Infectious Disease Consult: Deep Tissue Injury to the Sacral and the Upper Back. Per the 09/14 Nursing Documentation, the patient has a Left Shoulder Pressure Injury and a Coccyx Pressure Injury. Additional clarification regarding the stage of the pressure ulcers is requested. History/Risk Factor per the 09/10 H/P: COVID, CHF, CVA 2007 with Left Side Weakness: Arm & Leg, Left Foot Drop, TIA 2018, Cardiomyopathy, PE and Pneumothorax/Pneumonia following a leg fracture, Gestational Diabetes with all Pregnancies, Bilateral Glaucoma status post surgery, Psoriasis, UTI, Seizure Disorder: last seizure in 2009, Anxiety and Depression. Clinical Indicators: Presented to the ED on 09/10 with Altered Mental Status. Per the patient's brother, the patient is not taking care of herself, more tired & lethargic for several days, there was a concern of a possible seizure, had fast heart rate. Had a focal seizure at bedside. Has extensive cardiac history & history of Paroxysmal Atrial Fibrillation on Eliquis. Admit with Hypernatremia, Seizure, Altered Mental Status, Sepsis, Dehydration, Atrial Fibrillation, Elevated Troponin, ESTUARDO, Lactic Acidosis and COVID 19. Description of ulcers/injuries per nursing documentation: 1) Left Shoulder: Pressure Injury, Hospital Acquired, Found at 1/15 am bath. 2) Coccyx Pressure Injury: Present on Admission, 3 cm (length) x 3 cm (width) Treatment 09/11: IV Aztreonam 100 mls x1, IV Decadron 6 mg BID, IV Vancomycin 250 mls x1, IV Dextrose 1,000 mls q6H, I Zosyn 100 mls q8H, po Vit D3, IV Clindamycin 54 mls q8H, I Na Cl 1,000 mls x2, IV Na Cl 1,000 mls q13H, Lovenox sq Daily, IV Diflucan 50 mls Daily, 2 Person Assist/Total Assistance, Air Mattress, turn q2, Zinc Paste. Please clarify the stage of the pressure ulcers, if known: [ ] Stage 1 Pressure Ulcer(s), specify location(s) [ ] Stage 2 Pressure Ulcer(s), specify location(s) [ ] Stage 3 Pressure Ulcer(s), specify location(s) [ ] Stage 4 Pressure Ulcer(s), specify location(s) [ ] Unstageable Pressure ulcer(s), specify location(s) [ ] Other condition, please specify: [ x ] Unable to determine (Template Last Revised: October 2020) MTDD
--- NOTE | 2021-09-15 12:43 | P.PN ---
Subjective Progress Note Date: 09/15/21 Principal diagnosis: Acute COVID-19 pneumonia with acute hypoxic respiratory failure and altered mental status. This is a 51-year-old female patient was brought into because of an altered mental status. The patient was found by her brother was concerned about her mental status. The patient has poor baseline performance and functional status and more recently she wasn't able to take care of herself. She was feeling more lethargic and tired and based on all this, she was brought into the emergency department. In the ED, the patient was having seizures and tachycardia and she was altered and unresponsive. The patient was given IV Ativan. At the time of my evaluation, the patient was quite sedated. No tracheal evidence of a seizure activity and the patient was withdrawing and 4 extremities without any limitation. The patient furthermore was found to have significant abnormalities in her blood work. The patient also tested positive for COVID 19. In summary, the patient was found to have a sodium level LXIV, chloride of 116, FiO2 of 4.6, troponin of 0.3, and UA was abnormal highly suspicious for underlying urine checked infection. Urine drug screen was negative. At this point in time, the patient on IV fluids and the patient is receiving D5 water at the rate of 100 mL an hour. The patient was given a combination of vancomycin and aztreonam as empiric antibiotic coverage. The patient was also started on Decadron 6 mg IV every 12 hours. Chest x-ray showing a left perihilar and lower lobe pulmonary infiltration and the patient is currently on 6 L of oxygen by nasal cannula with a pulse of a 98%. She is in sinus tachycardia. Nevertheless, she has history of atrial fibrillation. She has been minimal, to coagulation with Eliquis and she was also taken amiodarone on outpatient basis. She is also known to have cardiomyopathy with an ejection fraction of 30-35%. On regular inspection, the patient looks quite debilitated. She has a body mass index of 19.7. Very poor oral hygiene and multiple decayed teeth. Her personal hygiene is also poor. 09/13/2021, the patient remains intubated on mechanical ventilator. She was intubated as the patient lost her left lung and there was complete atelectasis of the left lung due to mucous plugs. Bronchoscopy was done post intubation. Reexpansion of the left lung was achieved. Nevertheless, the left lung is infiltrated. Subsequently the patient went into ARDS. At this point in time, the patient is intubated on mechanical ventilator. She remains on a volume cycled mechanical ventilation. She is sedated with propofol running at 50 mcg/kg per minute and the patient is also on Nimbex running at 2 mcg/kg per minute. Hemodynamically, she is stable. On mechanical ventilator, she is an assist-control at the rate of 32 with a tidal volume of 300 and FiO2 of 70% with a PEEP of 20. Morning blood gases showed a pH of 7.21 with a pCO2 of 79 and pO2 of 136. Based on that, further adjustments on a mechanical ventilator with him. On today's chest x-ray, there is no evidence of pneumothorax. Left lung is infiltrated compared to the right and there is still some atelectatic changes and infiltration of the left lung base. The bronchoscopy and the lavage of the left lung was done. Cultures still pending. Urine cultures positive for gram- negative bacillus and the patient is still on a combination of Levaquin and clindamycin. The patient is also on Diflucan due to extensive oropharyngeal candidiasis was noted at a time of intubation. The patient was started on enteral feeding for nutritional support. She is currently receiving vitamin 1.2 at the rate of 20 mL an hour. IV fluids in the form of half-normal saline at the rate of 45 mL an hour. The patient has a white cell count of 17.7, hemoglobin is at 12.7, d-dimer is at 0.8, sodium is at 142, BUN is at 27 with a creatinine of 0.6. LDH level is 1009 and the CRP level is 25. Note that the LDH is lower compared to yesterday. No pressors for now. Urine output is adequate. No fever. No other significant events overnight. Patient was reevaluated today on 09/14/2021, patient remains intubated and mechanically ventilated, she is on assist control rate of 32, tidal volume of 300 FiO2 50%, PEEP 18. ABG showed a pO2 of 95 pCO2 of 82 pH of 7.25. Tidal volume was increased to 325, and PEEP was cut down to 14. Patient remains on propofol at 50 minute, Nimbex at 2 mcg/kg/m. IV fluid is 0.45 at 50 mL per ayah r, and 0.9 normal saline at 20 mL per hour. Patient is on enteral feeding, she is receiving vital 1.4 at 34/34. Patient has a right femoral triple-lumen catheter, right femoral arterial line, I was told that the patient has a large area of decubitus ulcer on her coccyx, hence I recommended consultation to 1 services. Antibiotics martinez she is on clindamycin, fluconazole, and she is also on Levaquin. Patient remains sedated and paralyzed, and I could not assess her mental status. WBC count is 17.4 hemoglobin 11.3, d-dimer is 0.91. Basic metabolic profile is normal renal profile is normal liver enzymes are borderline elevated LDH is 797 C-reactive protein is 23.2. Reevaluated today on 09/15/2021, patient is basically about the same, remains intubated and mechanically ventilated. Sedated and paralyzed, however I plan to discontinue Nimbex today. Chest x-ray showed mostly bibasilar airspace disease, patient is on a rate of 32, tidal volume 325 FiO2 50% and PEEP 14. She is still requiring propofol at 15 Nimbex at 2 and she is on feeding using vital 1.2 at 31 mL per hour. Her LDH today is down to 891 from 1509 and her C-reactive protein is down to 19 from 25 recently. Ventilatory-martinez I cut down her repeat to 10 from 14, Her on 50% for now. Her WBC count today is 11.3 hemoglobin is 10.0. ABG showed a pO2 of 93 pCO2 75 pH of 7.33 electrolytes are normal bicarb is 38 BUN is 53 creatinine 0.87. Overall the patient seems to be ventilating better, now that the PEEP is down to 10, I would discontinue Nimbex, and hopefully the patient could be maintained only on propofol and maybe adding fentanyl if needed. In the next 24 hours, I'm hoping that I could start addressing weaning constipation or at least weaning trials on a weaning mode of mechanical ventilation. Likely pressure support and CPAP if tolerated. Objective - Vital Signs Vital signs: Vital Signs Temp 99.1 F 09/15/21 08:00 Pulse 110 H 09/15/21 11:00 Resp 32 H 09/15/21 11:00 BP 132/70 09/15/21 07:00 Pulse Ox 96 09/15/21 11:00 Intake & Output 09/14/21 09/15/21 09/15/21 18:59 06:59 18:59 Intake Total 8474.630 6556.595 337 Output Total 1200 1140 500 Balance 314.073 878.595 -163 Weight 63.8 kg 63.8 kg Intake: IV 736 1236 209 Clindamycin 600 mg In 50 Dextrose 5% in Water 50 ml @ 50 mls/hr IVPB Q8H ADDIE Rx#:[id number] Pressure bag 36 36 9 Sodium Chloride 0.45% 1, 550 1200 200 000 ml @ 50 mls/hr IV . Q20H ADDIE Rx#:[id number] levETIRAcetam IV 1,000 mg 100 In Saline 1 100ml.bag @ 400 mls/hr IVPB Q12HR ADDIE Rx#:[id number] Intake, IV Titration 438.073 218.595 Amount Cisatracurium 200 mg In 120.95 51.773 Sodium Chloride 0.9% 180 ml @ 1 MCG/KG/MIN 3.54 mls/hr IV .Q24H ADDIE Rx#: [id number] Fluconazole in NaCl,Iso- 50 Osm 100 mg In Saline 1 50ml.bag @ 50 mls/hr IVPB DAILY ADDIE Rx#:[id number] Levofloxacin 500Mg-D5w 100 Pmx 500 mg In Dextrose/ Water 1 100ml.bag @ 100 mls/hr IVPB Q24H ADDIE Rx#: [id number] propofoL 1,000 mg In 167.123 166.822 Empty Bag 1 bag @ Titrate IV .Q0M ADDIE Rx#: [id number] Tube Feeding 340 384 128 Other 180 Output: Urine 1200 1140 500 Other: Voiding Method Indwelling Catheter Indwelling Catheter ABP, PAP, CO, CI - Last Documented Arterial Blood Pressure 104/43 - Exam -GENERAL: Revealed a 51-year-old female sedated and paralyzed intubated and mechanically ventilated. HEENT: [place], [place], nonicteric, no neck masses, no JVD, endotracheal tube and orogastric tube are intact. CARDIOVASCULAR: S1 and S2 present. No murmurs, rubs, or gallops. PULMONARY: Symmetrical chest expansion crackles at the bases. ABDOMEN: Soft nontender no megaly no rebound no guarding. MUSCULOSKELETAL: No joint swelling or deformity. EXTREMITIES: No cyanosis, clubbing, or pedal edema. NEUROLOGICAL: Cannot assess patient is sedated and paralyzed. SKIN: No rashes. Patient has a large coccygeal ulcer will consult wound services. - Labs CBC & Chem 7: 09/15/21 04:16 09/15/21 04:16 Labs: Abnormal Lab Results - Last 24 Hours (Table) 09/14/21 09/14/21 09/15/21 Range/Units 17:27 23:46 04:16 WBC (3.8-10.6) k/uL RBC (3.80-5.40) m/uL Hgb (11.4-16.0) gm/dL Hct (34.0-46.0) % MCV (80.0-100.0) fL Neutrophils # (1.3-7.7) k/uL Lymphocytes # (1.0-4.8) k/uL D-Dimer 0.94 H (<0.60) mg/L FEU ABG pCO2 (35-45) mmHg ABG HCO3 (21-25) mmol/L ABG Total CO2 (19-24) mmol/L Chloride (98-107) mmol/L Carbon Dioxide (22-30) mmol/L BUN (7-17) mg/dL Glucose (74-99) mg/dL POC Glucose (mg/dL) 150 H 129 H (75-99) mg/dL Calcium (8.4-10.2) mg/dL Lactate Dehydrogenase (313-618) U/L C-Reactive Protein (<1.0) mg/dL 09/15/21 09/15/21 09/15/21 Range/Units 04:16 04:16 04:16 WBC 11.3 H (3.8-10.6) k/uL RBC 3.14 L (3.80-5.40) m/uL Hgb 10.0 L (11.4-16.0) gm/dL Hct 32.1 L (34.0-46.0) % MCV 102.2 H (80.0-100.0) fL Neutrophils # 10.3 H (1.3-7.7) k/uL Lymphocytes # 0.6 L (1.0-4.8) k/uL D-Dimer (<0.60) mg/L FEU ABG pCO2 (35-45) mmHg ABG HCO3 (21-25) mmol/L ABG Total CO2 (19-24) mmol/L Chloride 97 L (98-107) mmol/L Carbon Dioxide 38 H (22-30) mmol/L BUN 33 H (7-17) mg/dL Glucose 122 H (74-99) mg/dL POC Glucose (mg/dL) (75-99) mg/dL Calcium 7.1 L (8.4-10.2) mg/dL Lactate Dehydrogenase 891 H (313-618) U/L C-Reactive Protein 19.6 H (<1.0) mg/dL 09/15/21 09/15/21 09/15/21 Range/Units 05:22 05:37 06:20 WBC (3.8-10.6) k/uL RBC (3.80-5.40) m/uL Hgb (11.4-16.0) gm/dL Hct (34.0-46.0) % MCV (80.0-100.0) fL Neutrophils # (1.3-7.7) k/uL Lymphocytes # (1.0-4.8) k/uL D-Dimer 0.94 H (<0.60) mg/L FEU ABG pCO2 75 H* (35-45) mmHg ABG HCO3 43 H* (21-25) mmol/L ABG Total CO2 46 H (19-24) mmol/L Chloride (98-107) mmol/L Carbon Dioxide (22-30) mmol/L BUN (7-17) mg/dL Glucose (74-99) mg/dL POC Glucose (mg/dL) 146 H (75-99) mg/dL Calcium (8.4-10.2) mg/dL Lactate Dehydrogenase (313-618) U/L C-Reactive Protein (<1.0) mg/dL 09/15/21 Range/Units 11:56 WBC (3.8-10.6) k/uL RBC (3.80-5.40) m/uL Hgb (11.4-16.0) gm/dL Hct (34.0-46.0) % MCV (80.0-100.0) fL Neutrophils # (1.3-7.7) k/uL Lymphocytes # (1.0-4.8) k/uL D-Dimer (<0.60) mg/L FEU ABG pCO2 (35-45) mmHg ABG HCO3 (21-25) mmol/L ABG Total CO2 (19-24) mmol/L Chloride (98-107) mmol/L Carbon Dioxide (22-30) mmol/L BUN (7-17) mg/dL Glucose (74-99) mg/dL POC Glucose (mg/dL) 151 H (75-99) mg/dL Calcium (8.4-10.2) mg/dL Lactate Dehydrogenase (313-618) U/L C-Reactive Protein (<1.0) mg/dL Microbiology - Last 24 Hours (Table) 09/10/21 12:45 Blood Culture - Preliminary Blood No Growth after 96 hours 09/10/21 13:03 Blood Culture - Preliminary Blood No Growth after 96 hours Assessment and Plan Assessment: Impression: Acute hypoxic respiratory failure secondary to COVID-19 pneumonia Altered mental status, multifactorial, acute ischemic stroke is not entirely ruled out. Being followed by neurology. Remains on Keppra. Patient presentation was initially a presentation of hyponatremia and seizure. Acute COVID-19 pneumonia Acute intravascular depletion with dehydration and electrolyte imbalance on her initial presentation. History of seizure activity. Previous history of pulmonary embolism, on long-term treatment with Eliquis. Paroxysmal atrial fibrillation Cardiomyopathy and LV dysfunction with ejection fraction of 30-35%. History of pacemaker implantation. 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 coli urinary tract infection History of psoriasis Sacral /coccygeal decubitus ulcer Recommendation: Continue ventilatory support. We will consider potential mode of weaning hopefully in the next 24 hours, but the patient is not ready for this yet, I will go ahead and discontinue Nimbex today. Decrease PEEP to 10. Keep FiO2 at 50% discontinue Nimbex but continue propofol and may consider adding fentanyl if needed to replace Nimbex today. Continue supportive care measures Continue antibiotics, Levaquin and clindamycin Continue Lovenox 40 mg subcu for DVT Continue IV Decadron Continue Keppra continue to monitor inflammatory markers continue enteral feeding continue to monitor in the ICU Patient is critically ill, Critical care time is over 30 minutes. Time with Patient: Greater than 30
--- NOTE | 2021-09-15 15:46 | P.PN ---
Subjective Progress Note Date: 09/15/21 The patient is seen at bedside and per nurse he was on Nimbex 2 at 7am that was stopped at 11am. He continues to be on IV Propofol 50mcg/kg/min. Per nurse no seizure overnight or today. Objective - Vital Signs Vital signs: Vital Signs Temp 99.6 F 09/15/21 13:00 Pulse 102 H 09/15/21 13:00 Resp 32 H 09/15/21 13:00 BP 132/70 09/15/21 07:00 Pulse Ox 97 09/15/21 13:00 Intake & Output 09/14/21 09/15/21 09/15/21 18:59 06:59 18:59 Intake Total 8530.813 0210.595 534 Output Total 1200 1140 625 Balance 314.073 878.595 -91 Weight 63.8 kg 63.8 kg Intake: IV 736 1236 312 Clindamycin 600 mg In 50 Dextrose 5% in Water 50 ml @ 50 mls/hr IVPB Q8H [facility] Rx#:[id number] Pressure bag 36 36 12 Sodium Chloride 0.45% 1, 550 1200 300 000 ml @ 50 mls/hr IV . Q20H ADDIE Rx#:[id number] levETIRAcetam IV 1,000 mg 100 In Saline 1 100ml.bag @ 400 mls/hr IVPB Q12HR [facility] Rx#:[id number] Intake, IV Titration 438.073 218.595 Amount Cisatracurium 200 mg In 120.95 51.773 Sodium Chloride 0.9% 180 ml @ 1 MCG/KG/MIN 3.54 mls/hr IV .Q24H [facility]IE Rx#: [id number] Fluconazole in NaCl,Iso- 50 Osm 100 mg In Saline 1 50ml.bag @ 50 mls/hr IVPB DAILY [facility] Rx#:[id number] Levofloxacin 500Mg-D5w 100 Pmx 500 mg In Dextrose/ Water 1 100ml.bag @ 100 mls/hr IVPB Q24H [facility] Rx#: [id number] propofoL 1,000 mg In 167.123 166.822 Empty Bag 1 bag @ Titrate IV .Q0M ADDIE Rx#: [id number] Tube Feeding 340 384 192 Other 180 30 Output: Urine 1200 1140 625 Other: Voiding Method Indwelling Catheter Indwelling Catheter ABP, PAP, CO, CI - Last Documented Arterial Blood Pressure 102/43 - Exam GENERAL: The patient is lying in bed and is not in acute distress. CHEST: on NE. LUNG: Intubated on ventilator. NEUROLOGICAL: Limited since is on IV Propofol 50mcg/kg/min. While Nimbex from 2mcg/kg/min was stopped at 11am (4 hours prior to my exam). Higher mental function: Comatose GCS 3 (E1, VT1, M1). No responsive or following commands. Cranial nerves: The pupils are round, pinpoint, equal. No facial weakness. No breathing over the vent (set at 32). Otherwise rest could not be assessed. Motor: The strength is hard to assess because of sedation. Sensation: Could not assess light touch. - Labs CBC & Chem 7: 09/15/21 04:16 09/15/21 04:16 Labs: Abnormal Lab Results - Last 24 Hours (Table) 09/14/21 09/14/21 09/15/21 Range/Units 17:27 23:46 04:16 WBC (3.8-10.6) k/uL RBC (3.80-5.40) m/uL Hgb (11.4-16.0) gm/dL Hct (34.0-46.0) % MCV (80.0-100.0) fL Neutrophils # (1.3-7.7) k/uL Lymphocytes # (1.0-4.8) k/uL D-Dimer 0.94 H (<0.60) mg/L FEU ABG pCO2 (35-45) mmHg ABG HCO3 (21-25) mmol/L ABG Total CO2 (19-24) mmol/L Chloride (98-107) mmol/L Carbon Dioxide (22-30) mmol/L BUN (7-17) mg/dL Glucose (74-99) mg/dL POC Glucose (mg/dL) 150 H 129 H (75-99) mg/dL Calcium (8.4-10.2) mg/dL Lactate Dehydrogenase (313-618) U/L C-Reactive Protein (<1.0) mg/dL Procalcitonin (0.02-0.09) ng/mL 09/15/21 09/15/21 09/15/21 Range/Units 04:16 04:16 04:16 WBC 11.3 H (3.8-10.6) k/uL RBC 3.14 L (3.80-5.40) m/uL Hgb 10.0 L (11.4-16.0) gm/dL Hct 32.1 L (34.0-46.0) % MCV 102.2 H (80.0-100.0) fL Neutrophils # 10.3 H (1.3-7.7) k/uL Lymphocytes # 0.6 L (1.0-4.8) k/uL D-Dimer (<0.60) mg/L FEU ABG pCO2 (35-45) mmHg ABG HCO3 (21-25) mmol/L ABG Total CO2 (19-24) mmol/L Chloride (98-107) mmol/L Carbon Dioxide (22-30) mmol/L BUN (7-17) mg/dL Glucose (74-99) mg/dL POC Glucose (mg/dL) (75-99) mg/dL Calcium (8.4-10.2) mg/dL Lactate Dehydrogenase 891 H (313-618) U/L C-Reactive Protein 19.6 H (<1.0) mg/dL Procalcitonin 0.27 H (0.02-0.09) ng/mL 09/15/21 09/15/21 09/15/21 Range/Units 04:16 05:22 05:37 WBC (3.8-10.6) k/uL RBC (3.80-5.40) m/uL Hgb (11.4-16.0) gm/dL Hct (34.0-46.0) % MCV (80.0-100.0) fL Neutrophils # (1.3-7.7) k/uL Lymphocytes # (1.0-4.8) k/uL D-Dimer 0.94 H (<0.60) mg/L FEU ABG pCO2 75 H* (35-45) mmHg ABG HCO3 43 H* (21-25) mmol/L ABG Total CO2 46 H (19-24) mmol/L Chloride 97 L (98-107) mmol/L Carbon Dioxide 38 H (22-30) mmol/L BUN 33 H (7-17) mg/dL Glucose 122 H (74-99) mg/dL POC Glucose (mg/dL) (75-99) mg/dL Calcium 7.1 L (8.4-10.2) mg/dL Lactate Dehydrogenase (313-618) U/L C-Reactive Protein (<1.0) mg/dL Procalcitonin (0.02-0.09) ng/mL 09/15/21 09/15/21 Range/Units 06:20 11:56 WBC (3.8-10.6) k/uL RBC (3.80-5.40) m/uL Hgb (11.4-16.0) gm/dL Hct (34.0-46.0) % MCV (80.0-100.0) fL Neutrophils # (1.3-7.7) k/uL Lymphocytes # (1.0-4.8) k/uL D-Dimer (<0.60) mg/L FEU ABG pCO2 (35-45) mmHg ABG HCO3 (21-25) mmol/L ABG Total CO2 (19-24) mmol/L Chloride (98-107) mmol/L Carbon Dioxide (22-30) mmol/L BUN (7-17) mg/dL Glucose (74-99) mg/dL POC Glucose (mg/dL) 146 H 151 H (75-99) mg/dL Calcium (8.4-10.2) mg/dL Lactate Dehydrogenase (313-618) U/L C-Reactive Protein (<1.0) mg/dL Procalcitonin (0.02-0.09) ng/mL Microbiology - Last 24 Hours (Table) 09/10/21 12:45 Blood Culture - Preliminary Blood No Growth after 120 hours 09/10/21 13:03 Blood Culture - Preliminary Blood No Growth after 120 hours Assessment and Plan Assessment: * Altered mental status, likely due to toxic metabolic encephalopathy, postictal state and medication effect (Nimbex and IV Propofol). Causes multifactorial as mentioned below. * Breakthrough seizure, likely due to multiple metabolic derangements. Patient had seizure disorder for long time, seizures in remission since 2009. * Acute Covid-19 infection with pneumonia. * Probable acute UTI. 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 * History of pacemaker. Plan: * Patient's blood test shows Tegretol level <3.0, Keppra 79.2 and Neurontin level <1.0. * On Tegretol 200 mg 3 times a dayand Keppra 1500 mg twice a day. * EEG was performed and it is reported as background slowing of at least moderate degree. This is suggestive of generalized cerebral dysfunction as can be seen with toxic metabolic encephalopathy or due to diffuse structural brain abnormality or postictal effect. No epileptiform activity was seen. * Resume anticoagulation with Eliquis as early as possible per Dr. Chua. Cardiology also on board. * Other medical management as per IM, critical care. * Upon discharge, the patient needs to follow-up with a neurologist within 1-2 weeks as outpatient. The plan is discussed with the nurse. Hopefully the sedation will continue to be titrated down further for better neurological exam. Phuc Serrano M.D. Neuro-Hospitalist Time with Patient: Less than 30
[2021-09-15 17:34] LABS: Glucose,Whole Blood 137 mg/dL (75-99)
[2021-09-15] MEDS: ATORVASTATIN 80 MG TAB PO SCH (20:14)
[2021-09-15] MEDS: SODIUM CHLORIDE 0.45% 1,000 ML IV SCH (20:14)
[2021-09-15] MEDS ORDERED: SODIUM CHLORIDE 0.9% 1,000 ML IV ONE (20:33)
[2021-09-15 23:56] LABS: Glucose,Whole Blood 103 mg/dL (75-99)
[2021-09-16] MEDS: INSULIN ASPART (NovoLOG) 100 UNIT/ML VIAL SQ SCH ×4 (00:07→18:22)
[2021-09-16] MEDS: NOREPINEPHRINE 32 MG in SODIUM CHLORIDE 0.9% 218 ML IV SCH ×2 (00:07→20:05)
[2021-09-16] MEDS: CLINDAMYCIN 600 MG in DEXTROSE 5% IN WATER 50 ML IVPB SCH ×6 (02:09→17:39)
[2021-09-16 04:31] LABS: Basophils % (A) 0 %; Eosinophils % (A) 0 %; HCT 29.6 % (34.0-46.0); HGB 9.4 gm/dL (11.4-16.0); Lymphocytes # (A) 0.9 k/uL (1.0-4.8); Lymphocytes % (A) 10 %; MCHC 31.9 g/dL (31.0-37.0); MCV 100.6 fL (80.0-100.0); Mean Platelet Volume 10.6; Monocytes # (A) 0.3 k/uL (0-1.0); Monocytes % (A) 3 %; Neutrophils # (A) 7.2 k/uL (1.3-7.7); Neutrophils % (A) 86 %; Platelet Count 162 k/uL (150-450); RBC 2.94 m/uL (3.80-5.40); RDW 13.5 % (11.5-15.5); WBC 8.4 k/uL (3.8-10.6)
[2021-09-16 04:39] LABS: Potassium 3.8 mmol/L (3.5-5.1)
[2021-09-16 04:40] LABS: African American GFR (CKD) >90 (>60 ml/min/1.73 sqM); Anion Gap 2 mmol/L; Blood Urea Nitrogen 30 mg/dL (7-17); Calcium 7.2 mg/dL (8.4-10.2); Carbon Dioxide 38 mmol/L (22-30); Chloride 100 mmol/L (98-107); Glucose 110 mg/dL (74-99); Non-African American GFR(CKD) 86 (>60 ml/min/1.73 sqM); Sodium 140 mmol/L (137-145)
[2021-09-16 05:59] LABS: ABG Base Excess 15.1 mmol/L; ABG HCO3 39 mmol/L (21-25); ABG Oxygen Saturation 96.2 % (94-97); ABG PCO2 56 mmHg (35-45); ABG PH 7.45 (7.35-7.45); ABG PO2 96 mmHg (83-108); ABG TCO2 41 mmol/L (19-24)
[2021-09-16] MEDS ORDERED: POTASSIUM BICARBONATE/CIT AC 20 MEQ TABLET.EFF NG-TUBE SCH (06:00)
--- NOTE | 2021-09-16 06:00 | P.PN ---
Subjective This is a pleasant 51 years old female with past medical history of Coronary Artery Disease, Heart Failure, CVA/TIA, Pulmonary Embolus (PE), Seizure Disorder, Last seizure 2009, CVA 2007 with L sided weakness arm and leg and has L foot drop, TIA 2018, cardiomyopathy, R PE and pneumothorax/pneumonia following leg fracture in 1994, gestational diabetes with all pregnancies , bilateral glaucoma with surgery, psoriasis in the past, UTIs. She is a status post Pacemaker, history of Bilateral eye surgery for glaucoma, Anxiety, Depression, Current every day smoker Patient presents because of altered mental status. Information was limited from the patient. It was obtained from the chart and medical staff. Also as per family patient was able to go to the bathroom, was more lethargic and tired over the last day. While in the emergency room focal mild seizure is noticed On admission patient had and fever of 101. She is tachypneic at 26-40, tachycardic 110-140, also she is hypoxic saturating 72% on room air Labs showing WBC of 10.5, hemoglobin of 16.3, platelet count of 197. INR 1.7. Sodium 164, creatinine 1.7, lactic acid elevated 4.6. Liver enzymes elevated with AST 202 and ALT 81. Bilirubin is normal at 1.3. Urine analysis is highly suspicious of infection Urine drug screen is negative Cash versus positive Chest x-ray showing left perihilar and left lower lobe area of infiltrate and small effusion correlates for pneumonia CT of the brain without contrast showing no intracranial hemorrhage, evidence of remote ischemic change. However there is vague low attenuation near the left thalamus and left cerebral peduncle. Acute ischemia in the differential diagnosis. Recommend stat MRI of brain with MRSA crow of [place] as clinically warranted. In the emergency room patient was started on aztreonam and IV vancomycin, Keppra and heparin drip 09/11/2021 Patient today was still in the ICU, she was very weak and obtunded, she will wake up to certain stabilized and moans, she does not follow commands she cannot, gait she moved both extremities symmetrically. R on she had collapse of her left lung cancer and she has to be intubated and repeat chest x-ray showing better. A of the left lung. She is tachypneic with a breathing rate 22, no more fever since yesterday. Her sodium improved down to 144 and she was started on normal saline, creatinine 1.1, Ejection fraction showed 30-35% which is slice worsened from 06/2021 where it was 35-40% She remains on dexamethasone, IV vancomycin and clindamycin, heparin drip, Keppra and normal saline at 75 mL/h 09/12/2021 Patient with respiratory failures and she was intubated and placed on mechanical ventilation with pulmonary/critical care team following her mostly. There is no more seizure-like activity noticed. She still tachypneic with a breathing rate of 32 blood pressure 100/70, she is needing FiO2 of 80% and PEEP of 20. She has no more fevers since admission. Urine culture is growing gram-negative bacilli. Sodium is 146, WBCs is increased at 16.5 K. PH showing acidosis with 7.1 and elevated pCO2 at 83. Chest x-ray showing left sided opacities with near full. A of the left lung. Patient kept on antibiotics in the form of clindamycin and Levaquin and fluconazole. Also she remains on dexamethasone, and so a heparin to Lovenox. Also continued on seizure medication 1500 mg twice a day and IV fluids per pulmonary team. Neurology team on the case 09/13/2021 Patient remains intubated and sedated with pulmonary/critical care team following her closely. Her PEEP is lower today to 18. She remains on FiO2 of 50%. She is tachypneic at 32 about blood pressure is controlled. Her inflammatory markers are increased to LDH of 1009 and CRP of 25.1. Bicarb is elevated at 31 WBC is 17.7, sodium improved to 142. Creatinine improved to 0.6. Chest x-ray showed improving left lung infiltrate. PH is improved slightly 7.2 with pCO2 is slightly better at 79. Urine culture is growing E. coli which is sensitive to the antibiotics. Currently patient is covered with clindamycin, Levaquin and fluconazole. Also she is on dexamethasone 6 mg, Keppra 1500 mg and half-normal saline at 50 mL per hour Anticoagulation switch from heparin drip and to Lovenox 09/14/2021 Patient still intubated and sedated on mechanical ventilation with pulmonary/critical care team following her closely and just her vent setting. Today her FiO2 of 55%, and she is tachypneic at 33 breath per minute. Labs showing stable findings with sodium 141, creatinine 0.8, liver enzymes slightly elevated, LDH slightly down at 797 and CRP 2-3.2. Same leukocytosis at 14.7. Her pH is 7.2 and carbon dioxide is 82. D-dimer mildly elevated at 0.9, just x-ray showing bilateral infiltrate with no significant change from prior. She remains on the same antibiotic of clindamycin, Levaquin, dexamethasone, Keppra 1500 mg and half normal saline at 50 mL/h 09/15/2021 Patient in the ICU intubated and sedated, with pulmonary/critical care team following closely. FiO2 still 50%, hemodynamically showing both staple blood pressure 101/40, patient is tachypneic more than 30 per minutes. PEEP is lower. wbc of 11.3, hemoglobin 9.4, sodium 140, creatinine 0.8. chest x-ray: mild worsening infiltrate in the left lobe. patient continued with the same treatment of clindamycin, levaquin, dexamethasone, keppra and she received 1 l of normal saline today. Objective - Vital Signs Vital signs: Vital Signs Temp 99.1 F 09/15/21 08:00 Pulse 108 H 09/15/21 09:00 Resp 32 H 09/15/21 09:00 BP 132/70 09/15/21 07:00 Pulse Ox 96 09/15/21 09:00 Intake & Output 09/14/21 09/15/21 09/15/21 18:59 06:59 18:59 Intake Total 8546.997 5762.595 170 Output Total 1200 1140 150 Balance 314.073 878.595 20 Weight 63.8 kg Intake: IV 736 1236 106 Clindamycin 600 mg In 50 Dextrose 5% in Water 50 ml @ 50 mls/hr IVPB Q8H ADDIE Rx#:[id number] Pressure bag 36 36 6 Sodium Chloride 0.45% 1, 550 1200 100 000 ml @ 50 mls/hr IV . Q20H ADDIE Rx#:[id number] levETIRAcetam IV 1,000 mg 100 In Saline 1 100ml.bag @ 400 mls/hr IVPB Q12HR ADDIE Rx#:[id number] Intake, IV Titration 438.073 218.595 Amount Cisatracurium 200 mg In 120.95 51.773 Sodium Chloride 0.9% 180 ml @ 1 MCG/KG/MIN 3.54 mls/hr IV .Q24H ADDIE Rx#: [id number] Fluconazole in NaCl,Iso- 50 Osm 100 mg In Saline 1 50ml.bag @ 50 mls/hr IVPB DAILY ADDIE Rx#:[id number] Levofloxacin 500Mg-D5w 100 Pmx 500 mg In Dextrose/ Water 1 100ml.bag @ 100 mls/hr IVPB Q24H ADDIE Rx#: [id number] propofoL 1,000 mg In 167.123 166.822 Empty Bag 1 bag @ Titrate IV .Q0M ADDIE Rx#: [id number] Tube Feeding 340 384 64 Other 180 Output: Urine 1200 1140 150 Other: Voiding Method Indwelling Catheter Indwelling Catheter ABP, PAP, CO, CI - Last Documented Arterial Blood Pressure 117/48 - Exam -GENERAL: The patient is intubated and sedated HEENT: Pupils are round and equally reacting to light. EOMI. No scleral icterus. No conjunctival pallor. Normocephalic, atraumatic. No pharyngeal erythema. No thyromegaly. CARDIOVASCULAR: S1 and S2 present. No murmurs, rubs, or gallops. PULMONARY: Chest is clear to auscultation, no wheezing or crackles. ABDOMEN: Soft, nontender, nondistended, normoactive bowel sounds. No palpable organomegaly. MUSCULOSKELETAL: No joint swelling or deformity. EXTREMITIES: No cyanosis, clubbing, or pedal edema. NEUROLOGICAL: Gross neurological examination did not reveal any focal deficits. SKIN: No rashes. no petechiae. - Labs CBC & Chem 7: 09/16/21 04:03 09/16/21 04:03 Labs: Abnormal Lab Results - Last 24 Hours (Table) 09/14/21 09/14/21 09/14/21 Range/Units 11:27 17:27 23:46 WBC (3.8-10.6) k/uL RBC (3.80-5.40) m/uL Hgb (11.4-16.0) gm/dL Hct (34.0-46.0) % MCV (80.0-100.0) fL Neutrophils # (1.3-7.7) k/uL Lymphocytes # (1.0-4.8) k/uL D-Dimer (<0.60) mg/L FEU ABG pCO2 (35-45) mmHg ABG HCO3 (21-25) mmol/L ABG Total CO2 (19-24) mmol/L Chloride (98-107) mmol/L Carbon Dioxide (22-30) mmol/L BUN (7-17) mg/dL Glucose (74-99) mg/dL POC Glucose (mg/dL) 158 H 150 H 129 H (75-99) mg/dL Calcium (8.4-10.2) mg/dL Lactate Dehydrogenase (313-618) U/L C-Reactive Protein (<1.0) mg/dL 09/15/21 09/15/21 09/15/21 Range/Units 04:16 04:16 04:16 WBC 11.3 H (3.8-10.6) k/uL RBC 3.14 L (3.80-5.40) m/uL Hgb 10.0 L (11.4-16.0) gm/dL Hct 32.1 L (34.0-46.0) % MCV 102.2 H (80.0-100.0) fL Neutrophils # 10.3 H (1.3-7.7) k/uL Lymphocytes # 0.6 L (1.0-4.8) k/uL D-Dimer 0.94 H (<0.60) mg/L FEU ABG pCO2 (35-45) mmHg ABG HCO3 (21-25) mmol/L ABG Total CO2 (19-24) mmol/L Chloride (98-107) mmol/L Carbon Dioxide (22-30) mmol/L BUN (7-17) mg/dL Glucose (74-99) mg/dL POC Glucose (mg/dL) (75-99) mg/dL Calcium (8.4-10.2) mg/dL Lactate Dehydrogenase 891 H (313-618) U/L C-Reactive Protein 19.6 H (<1.0) mg/dL 09/15/21 09/15/21 09/15/21 Range/Units 04:16 05:22 05:37 WBC (3.8-10.6) k/uL RBC (3.80-5.40) m/uL Hgb (11.4-16.0) gm/dL Hct (34.0-46.0) % MCV (80.0-100.0) fL Neutrophils # (1.3-7.7) k/uL Lymphocytes # (1.0-4.8) k/uL D-Dimer 0.94 H (<0.60) mg/L FEU ABG pCO2 75 H* (35-45) mmHg ABG HCO3 43 H* (21-25) mmol/L ABG Total CO2 46 H (19-24) mmol/L Chloride 97 L (98-107) mmol/L Carbon Dioxide 38 H (22-30) mmol/L BUN 33 H (7-17) mg/dL Glucose 122 H (74-99) mg/dL POC Glucose (mg/dL) (75-99) mg/dL Calcium 7.1 L (8.4-10.2) mg/dL Lactate Dehydrogenase (313-618) U/L C-Reactive Protein (<1.0) mg/dL 09/15/21 Range/Units 06:20 WBC (3.8-10.6) k/uL RBC (3.80-5.40) m/uL Hgb (11.4-16.0) gm/dL Hct (34.0-46.0) % MCV (80.0-100.0) fL Neutrophils # (1.3-7.7) k/uL Lymphocytes # (1.0-4.8) k/uL D-Dimer (<0.60) mg/L FEU ABG pCO2 (35-45) mmHg ABG HCO3 (21-25) mmol/L ABG Total CO2 (19-24) mmol/L Chloride (98-107) mmol/L Carbon Dioxide (22-30) mmol/L BUN (7-17) mg/dL Glucose (74-99) mg/dL POC Glucose (mg/dL) 146 H (75-99) mg/dL Calcium (8.4-10.2) mg/dL Lactate Dehydrogenase (313-618) U/L C-Reactive Protein (<1.0) mg/dL Microbiology - Last 24 Hours (Table) 09/10/21 12:45 Blood Culture - Preliminary Blood No Growth after 96 hours 09/10/21 13:03 Blood Culture - Preliminary Blood No Growth after 96 hours Assessment and Plan Assessment: Altered mental status could be metabolic/toxic encephalopathy, rule out other intracranial lesions, seizure Left lower lobe pneumonia, rule out aspiration pneumonia Sepsis secondary to UTI and pneumonia Breakthrough seizure Acute stroke is suspected with new focus at the left thalamus and left cerebral peduncle Bilateral Covid pneumonia Acute hypoxic respiratory failure Increased inflammatory markers elevated troponin, most likely type II ischemia. Rule out primary cardiac causes Hypernatremia Acute kidney injury Mild elevated liver enzymes History of coronary artery disease History of pulmonary embolism History of seizure disorder, last seizure was in 2009 as per documents History 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 left foot drop History of glaucoma status post surgery Status post permanent pacemaker Nicotine dependence Plan: This is a pleasant 51 years old female who presents with altered mental status, pneumonia, UTI, possible stroke, seizure and possible covid pneumonia Continue with Keppra and neurology consult. MRI of the brain is recommended however I'm not sure if her clinical condition allow doing test, we'll defer this to neurology and pulmonary/critical care team pulmonary consult, continue the broad-spectrum antibiotics with clindamycin and Levaquin and fluconazole. Follow-up sputum and blood Cultures grown sensitive E. coli which is covered Continue with dexamethasone Continue with vitamin C, vitamin D and zinc Pulmonary consult /critical care team consult Cardiology team consult for elevated troponin, patient does not have A. 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 Continue same treatment. Continue with symptomatic treatment. Resume home medication. Monitor lytes and vitals. DVT and GI prophylaxis. Further recommendations depends on the clinical course of the patient DVT prophylaxis: Lovenox GI Prophylaxis: Pepcid PT/OT: n/a Prognosis is guarded
[2021-09-16 06:29] LABS: Allen Test Performed? No
[2021-09-16] MEDS: CHLORHEXIDINE GLUCONATE 15 ML CUP MUCOUS MEM SCH ×2 (08:20→20:08)
[2021-09-16] MEDS: PANTOPRAZOLE 40 MG/10 ML VIAL IV SCH (08:20)
[2021-09-16] MEDS: ENOXAPARIN 40 MG/0.4 ML SYRINGE SQ SCH (08:21)
[2021-09-16] MEDS: DEXAMETHASONE SOD PHOSPHATE 10 MG/ML 1 ML VIAL IVP SCH (08:21)
[2021-09-16] MEDS: LEVOFLOXACIN 500MG-D5W PMX 500 MG in DEXTROSE/WATER 1 100ML.BAG IVPB SCH (08:22)
[2021-09-16] MEDS: AMIODARONE 200 MG TAB PO SCH (08:22)
[2021-09-16] MEDS: CHOLECALCIFEROL 125 MCG (5000 IU) TABLET PO SCH (08:22)
--- NOTE | 2021-09-16 08:22 | XR ---
EXAMINATION TYPE: XR chest 1V portable DATE OF EXAM: 09/16/2021 COMPARISON: Chest x-ray 09/15/2021 HISTORY: Intubated TECHNIQUE: Single frontal view of the chest is obtained. FINDINGS: Endotracheal tube, NG tube, defibrillator are overlying stable positions. Patient is rotat ed. No evident pneumothorax. Retrocardiac density persists, left hemidiaphragm is secured. Patchy den sities present at the left lung base. Cardiac mediastinal silhouette is stable accounting for differe nces in technique. IMPRESSION: Correlate for left lower lobe pneumonia versus atelectasis, possible associated effusion , follow-up suggested
[2021-09-16] MEDS: levETIRAcetam IV 1,500 MG in SALINE 1 100ML.BAG IVPB SCH ×2 (08:23→20:08)
[2021-09-16] MEDS: carBAMazepine 200 MG TAB PO SCH ×3 (08:24→20:08)
[2021-09-16] MEDS: ARTIFICIAL TEARS-HYPROMELLOSE DROPS 15 ML BTL BOTH EYES PRN (08:58)
--- NOTE | 2021-09-16 10:14 | P.PN ---
Subjective Progress Note Date: 09/16/21 The patient is seen at bedside and per nurse, no further seizure overnight or today so far. She continues to be intubated on ventilator. Nimbex continues to off since yesterday am. She is currently on IV Propofol 35mcg/kg/min Objective - Vital Signs Vital signs: Vital Signs Temp 98.2 F 09/16/21 04:00 Pulse 121 H 09/16/21 07:00 Resp 33 H 09/16/21 07:00 BP 120/59 09/16/21 07:00 Pulse Ox 94 L 09/16/21 07:00 Intake & Output 09/15/21 09/16/21 09/16/21 18:59 06:59 18:59 Intake Total 1171 1244.998 42.351 Output Total 1165 1300 Balance 6 -55.002 42.351 Weight 63.8 kg 65 kg Intake: IV 627 636 Pressure bag 27 36 Sodium Chloride 0.45% 1, 600 600 000 ml @ 50 mls/hr IV . Q20H [facility] Rx#:[id number] Intake, IV Titration 100 134.998 42.351 Amount propofoL 1,000 mg In 100 134.998 42.351 Empty Bag 1 bag @ Titrate IV .Q0M ADDIE Rx#: [id number] Tube Feeding 384 384 Other 60 90 Output: Urine 1165 1300 Other: Voiding Method Indwelling Catheter Indwelling Catheter ABP, PAP, CO, CI - Last Documented Arterial Blood Pressure 130/48 - Exam GENERAL: The patient is lying in bed and is not in acute distress. CHEST: on NE. LUNG: Intubated on ventilator. NEUROLOGICAL: Limited since is on IV Propofol 35mcg/kg/min. Higher mental function: Comatose GCS 3 (E1, VT1, M1). No responsive or following commands. Cranial nerves: I had to manually open eyes and primary gaze is midline. The pupils are round, pinpoint, equal and reactive to light. No corneal reflex appreaciated. No facial weakness. Is breathing over the vent. Questionable very weak gag reflex. Otherwise rest could not be assessed. Motor: The strength is 0/5 throughout. Sensation: Could not assess light touch. To painful stimuli not withdrawing throughout. - Labs CBC & Chem 7: 09/16/21 04:03 09/16/21 04:03 Labs: Abnormal Lab Results - Last 24 Hours (Table) 09/15/21 09/15/21 09/15/21 Range/Units 04:16 11:56 17:33 RBC (3.80-5.40) m/uL Hgb (11.4-16.0) gm/dL Hct (34.0-46.0) % MCV (80.0-100.0) fL Lymphocytes # (1.0-4.8) k/uL ABG pCO2 (35-45) mmHg ABG HCO3 (21-25) mmol/L ABG Total CO2 (19-24) mmol/L Carbon Dioxide (22-30) mmol/L BUN (7-17) mg/dL Glucose (74-99) mg/dL POC Glucose (mg/dL) 151 H 137 H (75-99) mg/dL Calcium (8.4-10.2) mg/dL Procalcitonin 0.27 H (0.02-0.09) ng/mL 09/15/21 09/16/21 09/16/21 Range/Units 23:54 04:03 04:03 RBC 2.94 L (3.80-5.40) m/uL Hgb 9.4 L (11.4-16.0) gm/dL Hct 29.6 L (34.0-46.0) % MCV 100.6 H (80.0-100.0) fL Lymphocytes # 0.9 L (1.0-4.8) k/uL ABG pCO2 (35-45) mmHg ABG HCO3 (21-25) mmol/L ABG Total CO2 (19-24) mmol/L Carbon Dioxide 38 H (22-30) mmol/L BUN 30 H (7-17) mg/dL Glucose 110 H (74-99) mg/dL POC Glucose (mg/dL) 103 H (75-99) mg/dL Calcium 7.2 L (8.4-10.2) mg/dL Procalcitonin (0.02-0.09) ng/mL 09/16/21 Range/Units 05:47 RBC (3.80-5.40) m/uL Hgb (11.4-16.0) gm/dL Hct (34.0-46.0) % MCV (80.0-100.0) fL Lymphocytes # (1.0-4.8) k/uL ABG pCO2 56 H (35-45) mmHg ABG HCO3 39 H (21-25) mmol/L ABG Total CO2 41 H (19-24) mmol/L Carbon Dioxide (22-30) mmol/L BUN (7-17) mg/dL Glucose (74-99) mg/dL POC Glucose (mg/dL) (75-99) mg/dL Calcium (8.4-10.2) mg/dL Procalcitonin (0.02-0.09) ng/mL Microbiology - Last 24 Hours (Table) 09/10/21 12:45 Blood Culture - Preliminary Blood No Growth after 120 hours 09/10/21 13:03 Blood Culture - Preliminary Blood No Growth after 120 hours Assessment and Plan Assessment: * Altered mental status, likely due to toxic metabolic encephalopathy, postictal state and medication effect (IV Propofol). Nimbex has been off since 09/15/21AM. Causes multifactorial as mentioned below. * Breakthrough seizure, likely due to multiple metabolic derangements. Patient had seizure disorder for long time, seizures in remission since 2009. * Acute Covid-19 infection with pneumonia. * Probable acute UTI. 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 * History of pacemaker. Plan: * Patient's blood test shows Tegretol level <3.0, Keppra 79.2 and Neurontin level <1.0. * On Tegretol 200 mg 3 times a dayand Keppra 1500 mg twice a day. * EEG was performed and it is reported as background slowing of at least moderate degree. This is suggestive of generalized cerebral dysfunction as can be seen with toxic metabolic encephalopathy or due to diffuse structural brain abnormality or postictal effect. No epileptiform activity was seen. * Patient was notified to give a holiday sedation today, and if no improvement in her neurological examination will get repeat CT head. * Resume anticoagulation with Eliquis as early as possible per Dr. Chua. Cardiology also on board. * Other medical management as per IM, critical care. * Upon discharge, the patient needs to follow-up with a neurologist within 1-2 weeks as outpatient. * Condition: Very guarded. The plan is discussed with the nurse. Phuc Serrano M.D. Neuro-Hospitalist Time with Patient: Less than 30
[2021-09-16 11:45] LABS: Glucose,Whole Blood 168 mg/dL (75-99)
[2021-09-16] MEDS: SODIUM CHLORIDE 0.45% 1,000 ML IV SCH (12:22)
--- NOTE | 2021-09-16 13:55 | P.PN ---
Subjective Progress Note Date: 09/16/21 Principal diagnosis: Acute COVID-19 pneumonia with acute hypoxic respiratory failure and altered mental status. This is a 51-year-old female patient was brought into because of an altered mental status. The patient was found by her brother was concerned about her mental status. The patient has poor baseline performance and functional status and more recently she wasn't able to take care of herself. She was feeling more lethargic and tired and based on all this, she was brought into the emergency department. In the ED, the patient was having seizures and tachycardia and she was altered and unresponsive. The patient was given IV Ativan. At the time of my evaluation, the patient was quite sedated. No tracheal evidence of a seizure activity and the patient was withdrawing and 4 extremities without any limitation. The patient furthermore was found to have significant abnormalities in her blood work. The patient also tested positive for COVID 19. In summary, the patient was found to have a sodium level LXIV, chloride of 116, FiO2 of 4.6, troponin of 0.3, and UA was abnormal highly suspicious for underlying urine checked infection. Urine drug screen was negative. At this point in time, the patient on IV fluids and the patient is receiving D5 water at the rate of 100 mL an hour. The patient was given a combination of vancomycin and aztreonam as empiric antibiotic coverage. The patient was also started on Decadron 6 mg IV every 12 hours. Chest x-ray showing a left perihilar and lower lobe pulmonary infiltration and the patient is currently on 6 L of oxygen by nasal cannula with a pulse of a 98%. She is in sinus tachycardia. Nevertheless, she has history of atrial fibrillation. She has been minimal, to coagulation with Eliquis and she was also taken amiodarone on outpatient basis. She is also known to have cardiomyopathy with an ejection fraction of 30-35%. On regular inspection, the patient looks quite debilitated. She has a body mass index of 19.7. Very poor oral hygiene and multiple decayed teeth. Her personal hygiene is also poor. 09/13/2021, the patient remains intubated on mechanical ventilator. She was intubated as the patient lost her left lung and there was complete atelectasis of the left lung due to mucous plugs. Bronchoscopy was done post intubation. Reexpansion of the left lung was achieved. Nevertheless, the left lung is infiltrated. Subsequently the patient went into ARDS. At this point in time, the patient is intubated on mechanical ventilator. She remains on a volume cycled mechanical ventilation. She is sedated with propofol running at 50 mcg/kg per minute and the patient is also on Nimbex running at 2 mcg/kg per minute. Hemodynamically, she is stable. On mechanical ventilator, she is an assist-control at the rate of 32 with a tidal volume of 300 and FiO2 of 70% with a PEEP of 20. Morning blood gases showed a pH of 7.21 with a pCO2 of 79 and pO2 of 136. Based on that, further adjustments on a mechanical ventilator with him. On today's chest x-ray, there is no evidence of pneumothorax. Left lung is infiltrated compared to the right and there is still some atelectatic changes and infiltration of the left lung base. The bronchoscopy and the lavage of the left lung was done. Cultures still pending. Urine cultures positive for gram- negative bacillus and the patient is still on a combination of Levaquin and clindamycin. The patient is also on Diflucan due to extensive oropharyngeal candidiasis was noted at a time of intubation. The patient was started on enteral feeding for nutritional support. She is currently receiving vitamin 1.2 at the rate of 20 mL an hour. IV fluids in the form of half-normal saline at the rate of 45 mL an hour. The patient has a white cell count of 17.7, hemoglobin is at 12.7, d-dimer is at 0.8, sodium is at 142, BUN is at 27 with a creatinine of 0.6. LDH level is 1009 and the CRP level is 25. Note that the LDH is lower compared to yesterday. No pressors for now. Urine output is adequate. No fever. No other significant events overnight. Patient was reevaluated today on 09/14/2021, patient remains intubated and mechanically ventilated, she is on assist control rate of 32, tidal volume of 300 FiO2 50%, PEEP 18. ABG showed a pO2 of 95 pCO2 of 82 pH of 7.25. Tidal volume was increased to 325, and PEEP was cut down to 14. Patient remains on propofol at 50 minute, Nimbex at 2 mcg/kg/m. IV fluid is 0.45 at 50 mL per ayah r, and 0.9 normal saline at 20 mL per hour. Patient is on enteral feeding, she is receiving vital 1.4 at 34/34. Patient has a right femoral triple-lumen catheter, right femoral arterial line, I was told that the patient has a large area of decubitus ulcer on her coccyx, hence I recommended consultation to 1 services. Antibiotics martinez she is on clindamycin, fluconazole, and she is also on Levaquin. Patient remains sedated and paralyzed, and I could not assess her mental status. WBC count is 17.4 hemoglobin 11.3, d-dimer is 0.91. Basic metabolic profile is normal renal profile is normal liver enzymes are borderline elevated LDH is 797 C-reactive protein is 23.2. Reevaluated today on 09/15/2021, patient is basically about the same, remains intubated and mechanically ventilated. Sedated and paralyzed, however I plan to discontinue Nimbex today. Chest x-ray showed mostly bibasilar airspace disease, patient is on a rate of 32, tidal volume 325 FiO2 50% and PEEP 14. She is still requiring propofol at 15 Nimbex at 2 and she is on feeding using vital 1.2 at 31 mL per hour. Her LDH today is down to 891 from 1509 and her C-reactive protein is down to 19 from 25 recently. Ventilatory-martinez I cut down her repeat to 10 from 14, Her on 50% for now. Her WBC count today is 11.3 hemoglobin is 10.0. ABG showed a pO2 of 93 pCO2 75 pH of 7.33 electrolytes are normal bicarb is 38 BUN is 53 creatinine 0.87. Overall the patient seems to be ventilating better, now that the PEEP is down to 10, I would discontinue Nimbex, and hopefully the patient could be maintained only on propofol and maybe adding fentanyl if needed. In the next 24 hours, I'm hoping that I could start addressing weaning constipation or at least weaning trials on a weaning mode of mechanical ventilation. Likely pressure support and CPAP if tolerated. Patient was reevaluated today on 09/16/21, remains in the ICU, intubated and mechanically ventilated. Patient is now off Nimbex, and she is on relatively low dose of propofol, which I plan to discontinue and address mental status, her Nimbex has been off for the last 24 hours, and propofol was discontinued earlier today, however so far the patient is not responding to any stimuli. She opens eyes only with deep painful stimuli. She is being followed by neurology. Patient is now on assist control rate of 32 tidal volume 325 FiO2 50% and PEEP is 10. I am keeping her FiO2 at 50% but I'm cutting down the PEEP down to 8. And I'm continuing to hold sedation. Her ABG today showed a pO2 of 96 pCO2 56 pH of 7.45. Her labs are basically unremarkable. CBC is relatively normal except for hemoglobin of 9.4. Sodium is normal at 140. Bicarb is 38. Renal profile is normal. And calcium is 7.2. Chest x-ray is showing left lower lobe pneumonia/atelectasis. Patient was seen by neurology today, still believe that the patient has toxic metabolic encephalopathy, post ictal state, and breakthrough seizures however the recommendation is to continue to hold sedation and if no improvement off sedation but later today, may consider CT of the brain. Objective - Vital Signs Vital signs: Vital Signs Temp 100.0 F H 09/16/21 12:00 Pulse 108 H 09/16/21 13:00 Resp 32 H 09/16/21 13:00 BP 110/57 09/16/21 13:00 Pulse Ox 98 09/16/21 13:00 Intake & Output 09/15/21 09/16/21 09/16/21 18:59 06:59 18:59 Intake Total 1171 1244.998 631.485 Output Total 1165 1300 825 Balance 6 -55.002 -193.515 Weight 63.8 kg 65 kg Intake: IV 627 636 318 Pressure bag 27 36 18 Sodium Chloride 0.45% 1, 600 600 300 000 ml @ 50 mls/hr IV . Q20H ADDIE Rx#:[id number] Intake, IV Titration 100 134.998 49.485 Amount propofoL 1,000 mg In 100 134.998 49.485 Empty Bag 1 bag @ Titrate IV .Q0M ADDIE Rx#: [id number] Tube Feeding 384 384 204 Other 60 90 60 Output: Urine 1165 1300 825 Other: Voiding Method Indwelling Catheter Indwelling Catheter Indwelling Catheter ABP, PAP, CO, CI - Last Documented Arterial Blood Pressure 111/46 - Exam -GENERAL: Revealed a 51-year-old female mechanically ventilated, off sedation, off paralytics. HEENT: [place], NC, nonicteric, no neck masses, no JVD, endotracheal tube and orogastric tube are intact. CARDIOVASCULAR: S1 and S2 present. No murmurs, rubs, or gallops. PULMONARY: Symmetrical chest expansion crackles at the bases. ABDOMEN: Soft nontender no megaly no rebound no guarding. MUSCULOSKELETAL: No joint swelling or deformity. EXTREMITIES: No cyanosis, clubbing, or pedal edema. NEUROLOGICAL: Patient opens eyes only to deep painful stimuli otherwise no purposeful movement, and no responses SKIN: No rashes. Patient has a large coccygeal ulcer will consult wound services. - Labs CBC & Chem 7: 09/16/21 04:03 09/16/21 04:03 Labs: Abnormal Lab Results - Last 24 Hours (Table) 09/15/21 09/15/21 09/15/21 Range/Units 04:16 17:33 23:54 RBC (3.80-5.40) m/uL Hgb (11.4-16.0) gm/dL Hct (34.0-46.0) % MCV (80.0-100.0) fL Lymphocytes # (1.0-4.8) k/uL ABG pCO2 (35-45) mmHg ABG HCO3 (21-25) mmol/L ABG Total CO2 (19-24) mmol/L Carbon Dioxide (22-30) mmol/L BUN (7-17) mg/dL Glucose (74-99) mg/dL POC Glucose (mg/dL) 137 H 103 H (75-99) mg/dL Calcium (8.4-10.2) mg/dL Procalcitonin 0.27 H (0.02-0.09) ng/mL 09/16/21 09/16/21 09/16/21 Range/Units 04:03 04:03 05:47 RBC 2.94 L (3.80-5.40) m/uL Hgb 9.4 L (11.4-16.0) gm/dL Hct 29.6 L (34.0-46.0) % MCV 100.6 H (80.0-100.0) fL Lymphocytes # 0.9 L (1.0-4.8) k/uL ABG pCO2 56 H (35-45) mmHg ABG HCO3 39 H (21-25) mmol/L ABG Total CO2 41 H (19-24) mmol/L Carbon Dioxide 38 H (22-30) mmol/L BUN 30 H (7-17) mg/dL Glucose 110 H (74-99) mg/dL POC Glucose (mg/dL) (75-99) mg/dL Calcium 7.2 L (8.4-10.2) mg/dL Procalcitonin (0.02-0.09) ng/mL 09/16/21 Range/Units 11:42 RBC (3.80-5.40) m/uL Hgb (11.4-16.0) gm/dL Hct (34.0-46.0) % MCV (80.0-100.0) fL Lymphocytes # (1.0-4.8) k/uL ABG pCO2 (35-45) mmHg ABG HCO3 (21-25) mmol/L ABG Total CO2 (19-24) mmol/L Carbon Dioxide (22-30) mmol/L BUN (7-17) mg/dL Glucose (74-99) mg/dL POC Glucose (mg/dL) 168 H (75-99) mg/dL Calcium (8.4-10.2) mg/dL Procalcitonin (0.02-0.09) ng/mL Microbiology - Last 24 Hours (Table) 09/10/21 12:45 Blood Culture - Preliminary Blood No Growth after 120 hours 09/10/21 13:03 Blood Culture - Preliminary Blood No Growth after 120 hours Assessment and Plan Assessment: Impression: Acute hypoxic respiratory failure secondary to COVID-19 pneumonia Altered mental status, multifactorial, acute ischemic stroke is not entirely ruled out. Being followed by neurology. Remains on [facility]. Patient presentation was initially a presentation of hyponatremia and seizure. Acute COVID-19 pneumonia Acute intravascular depletion with dehydration and electrolyte imbalance on her initial presentation. History of seizure activity. Previous history of pulmonary embolism, on long-term treatment with Eliquis. Paroxysmal atrial fibrillation Cardiomyopathy and LV dysfunction with ejection fraction of 30-35%. History of pacemaker implantation. History of saccular FORGESMITH aneurysm 4 mm Hypothyroidism Coronary artery disease History of CVA in 2007 History of recurrent E. coli urinary tract infection History of psoriasis Sacral /coccygeal decubitus ulcer Acute metabolic encephalopathy Recommendation: Continue ventilatory support. Keep patient off sedation. Continue on FiO2 of 50% and PEEP of 8. Considering her mental status, patient is not ready for weaning. Continue supportive care measures Continue antibiotics, Levaquin and clindamycin Continue Lovenox 40 mg subcu for DVT Continue IV Decadron Continue Keppra continue to monitor inflammatory markers continue enteral feeding continue to monitor in the ICU Patient is critically ill, Critical care time is over 30 minutes. Time with Patient: Greater than 30
[2021-09-16 17:39] LABS: Glucose,Whole Blood 119 mg/dL (75-99)
--- NOTE | 2021-09-16 17:47 | CT ---
EXAMINATION TYPE: CT brain wo con DATE OF EXAM: 09/16/2021 COMPARISON: 09/10/2021 HISTORY: Altered mental status. CT DLP: 1202.4 mGycm Automated exposure control for dose reduction was used. Images of the brain obtained without contrast. There is some cerebral cortical atrophy. There is large area of hypodensity involving the right cereb ral hemisphere consistent with old middle cerebral artery infarct. There is 4 cm area of hypodensity left posterior frontal lobe cortex consistent with old infarct. There is no midline shift. There is s ome enlargement of the right lateral ventricle. There is no evidence of intracranial hemorrhage. The calvarium is intact. There is some mucosal mild thickening in the left maxillary sinus. IMPRESSION: Old right hemisphere infarct without change. Old left posterior frontal lobe cortical infarct without change. No acute abnormality.
[2021-09-16] MEDS: ATORVASTATIN 80 MG TAB PO SCH (20:08)
[2021-09-16] MEDS: CISATRACURIUM 200 MG in SODIUM CHLORIDE 0.9% 180 ML IV SCH (20:08)
--- NOTE | 2021-09-16 21:02 | P.PN ---
Subjective Progress Note Date: 09/15/21 Principal diagnosis: Pneumonia pressure ulcer and multiple antibiotic allergies Patient is a 51-year-old female presenting to the hospital on September 10 for mental status changes patient did have a evidence of COVID-19 infection, with respiratory failure requiring intubation also with E. coli UTI and the patient did have multiple antibiotic allergies. On today's evaluation that is 09/15/2021 the patient is afebrile, the patient is hemodynamically stable, FiO2 is currently stable at 50% no significant purulent secretion through the ET or diarrhea reported by nursing staff Objective - Vital Signs Vital signs: Vital Signs Temp 98.2 F 09/15/21 20:00 Pulse 100 09/15/21 22:00 Resp 32 H 09/15/21 22:00 BP 97/50 09/15/21 22:00 Pulse Ox 96 09/15/21 22:00 Intake & Output 09/15/21 09/15/21 09/16/21 06:59 18:59 06:59 Intake Total 2018.595 1171 6.923 Output Total 1140 1165 Balance 878.595 6 6.923 Weight 63.8 kg 63.8 kg Intake: IV 1236 627 Pressure bag 36 27 Sodium Chloride 0.45% 1, 1200 600 000 ml @ 50 mls/hr IV . Q20H ADDIE Rx#:[id number] Intake, IV Titration 218.595 100 6.923 Amount Cisatracurium 200 mg In 51.773 Sodium Chloride 0.9% 180 ml @ 1 MCG/KG/MIN 3.54 mls/hr IV .Q24H ADDIE Rx#: [id number] propofoL 1,000 mg In 166.822 100 6.923 Empty Bag 1 bag @ Titrate IV .Q0M ADDIE Rx#: [id number] Tube Feeding 384 384 Other 180 60 Output: Urine 1140 1165 Other: Voiding Method Indwelling Catheter Indwelling Catheter Indwelling Catheter ABP, PAP, CO, CI - Last Documented Arterial Blood Pressure 100/45 - Exam GENERAL DESCRIPTION: Middle-aged male intubated on the vent, no distress. No tachypnea or accessory muscle of respiration use. LUNGS: Unlabored breathing. Decreased breath sound at the base. No wheeze or crackle. HEART: S1, S2, regular rate and rhythm. No loud murmur ABDOMEN: Soft, no tenderness , guarding or rigidity, no organomegaly EXTREMITIES: No edema of feet. - Labs CBC & Chem 7: 09/16/21 04:03 09/16/21 04:03 Labs: Abnormal Lab Results - Last 24 Hours (Table) 09/14/21 09/15/21 09/15/21 Range/Units 23:46 04:16 04:16 WBC (3.8-10.6) k/uL RBC (3.80-5.40) m/uL Hgb (11.4-16.0) gm/dL Hct (34.0-46.0) % MCV (80.0-100.0) fL Neutrophils # (1.3-7.7) k/uL Lymphocytes # (1.0-4.8) k/uL D-Dimer 0.94 H (<0.60) mg/L FEU ABG pCO2 (35-45) mmHg ABG HCO3 (21-25) mmol/L ABG Total CO2 (19-24) mmol/L Chloride (98-107) mmol/L Carbon Dioxide (22-30) mmol/L BUN (7-17) mg/dL Glucose (74-99) mg/dL POC Glucose (mg/dL) 129 H (75-99) mg/dL Calcium (8.4-10.2) mg/dL Lactate Dehydrogenase 891 H (313-618) U/L C-Reactive Protein 19.6 H (<1.0) mg/dL Procalcitonin (0.02-0.09) ng/mL 09/15/21 09/15/21 09/15/21 Range/Units 04:16 04:16 04:16 WBC 11.3 H (3.8-10.6) k/uL RBC 3.14 L (3.80-5.40) m/uL Hgb 10.0 L (11.4-16.0) gm/dL Hct 32.1 L (34.0-46.0) % MCV 102.2 H (80.0-100.0) fL Neutrophils # 10.3 H (1.3-7.7) k/uL Lymphocytes # 0.6 L (1.0-4.8) k/uL D-Dimer (<0.60) mg/L FEU ABG pCO2 (35-45) mmHg ABG HCO3 (21-25) mmol/L ABG Total CO2 (19-24) mmol/L Chloride 97 L (98-107) mmol/L Carbon Dioxide 38 H (22-30) mmol/L BUN 33 H (7-17) mg/dL Glucose 122 H (74-99) mg/dL POC Glucose (mg/dL) (75-99) mg/dL Calcium 7.1 L (8.4-10.2) mg/dL Lactate Dehydrogenase (313-618) U/L C-Reactive Protein (<1.0) mg/dL Procalcitonin 0.27 H (0.02-0.09) ng/mL 09/15/21 09/15/21 09/15/21 Range/Units 05:22 05:37 06:20 WBC (3.8-10.6) k/uL RBC (3.80-5.40) m/uL Hgb (11.4-16.0) gm/dL Hct (34.0-46.0) % MCV (80.0-100.0) fL Neutrophils # (1.3-7.7) k/uL Lymphocytes # (1.0-4.8) k/uL D-Dimer 0.94 H (<0.60) mg/L FEU ABG pCO2 75 H* (35-45) mmHg ABG HCO3 43 H* (21-25) mmol/L ABG Total CO2 46 H (19-24) mmol/L Chloride (98-107) mmol/L Carbon Dioxide (22-30) mmol/L BUN (7-17) mg/dL Glucose (74-99) mg/dL POC Glucose (mg/dL) 146 H (75-99) mg/dL Calcium (8.4-10.2) mg/dL Lactate Dehydrogenase (313-618) U/L C-Reactive Protein (<1.0) mg/dL Procalcitonin (0.02-0.09) ng/mL 09/15/21 09/15/21 Range/Units 11:56 17:33 WBC (3.8-10.6) k/uL RBC (3.80-5.40) m/uL Hgb (11.4-16.0) gm/dL Hct (34.0-46.0) % MCV (80.0-100.0) fL Neutrophils # (1.3-7.7) k/uL Lymphocytes # (1.0-4.8) k/uL D-Dimer (<0.60) mg/L FEU ABG pCO2 (35-45) mmHg ABG HCO3 (21-25) mmol/L ABG Total CO2 (19-24) mmol/L Chloride (98-107) mmol/L Carbon Dioxide (22-30) mmol/L BUN (7-17) mg/dL Glucose (74-99) mg/dL POC Glucose (mg/dL) 151 H 137 H (75-99) mg/dL Calcium (8.4-10.2) mg/dL Lactate Dehydrogenase (313-618) U/L C-Reactive Protein (<1.0) mg/dL Procalcitonin (0.02-0.09) ng/mL Microbiology - Last 24 Hours (Table) 09/10/21 12:45 Blood Culture - Preliminary Blood No Growth after 120 hours 09/10/21 13:03 Blood Culture - Preliminary Blood No Growth after 120 hours Assessment and Plan Assessment: 1-Patient with acute respiratory failure which is multifactorial in this patient who did have a covid19 pneumonia and a concern for possible secondary bacterial patient is covered with the Levaquin and clindamycin to continue sputum cultures will be followed. 2patient with a deep tissue injury to the sacral and upper back area no cellulitis, keep the area dry and of the pressure Time with Patient: Less than 30
--- NOTE | 2021-09-16 21:05 | P.PN ---
Subjective Progress Note Date: 09/16/21 Principal diagnosis: Pneumonia pressure ulcer and multiple antibiotic allergies Patient is a 51-year-old female presenting to the hospital on September 10 for mental status changes patient did have a evidence of COVID-19 infection, with respiratory failure requiring intubation also with E. coli UTI and the patient did have multiple antibiotic allergies. On today's evaluation that is 09/16/2021 Patient did spike a fever of 100.3 F this evening the patient is hemodynamically stable not requiring any pressor support patient is slowly being taken off sedation no significant purulent secretion through the ET or diarrhea reported by the nursing staff Objective - Vital Signs Vital signs: Vital Signs Temp 99.7 F H 09/16/21 16:00 Pulse 108 H 09/16/21 19:00 Resp 25 H 09/16/21 19:00 BP 132/72 09/16/21 18:00 Pulse Ox 97 09/16/21 19:00 Intake & Output 09/16/21 09/16/21 09/17/21 06:59 18:59 06:59 Intake Total 7438.539 2431.555 11.588 Output Total 1300 2025 Balance 69.134 -838.445 11.588 Weight 65 kg Intake: IV 636 636 Pressure bag 36 36 Sodium Chloride 0.45% 1, 600 600 000 ml @ 50 mls/hr IV . Q20H ADDIE Rx#:[id number] Intake, IV Titration 259.134 52.555 11.588 Amount Cisatracurium 200 mg In 124.136 Sodium Chloride 0.9% 180 ml @ 1 MCG/KG/MIN 3.54 mls/hr IV .Q24H ADDIE Rx#: [id number] propofoL 1,000 mg In 134.998 52.555 11.588 Empty Bag 1 bag @ Titrate IV .Q0M ADDIE Rx#: [id number] Tube Feeding 384 408 Other 90 90 Output: Urine 1300 2024 Other: Voiding Method Indwelling Catheter Indwelling Catheter ABP, PAP, CO, CI - Last Documented Arterial Blood Pressure 149/66 - Exam GENERAL DESCRIPTION: Middle-aged male intubated on the vent, no distress. No tachypnea or accessory muscle of respiration use. LUNGS: Unlabored breathing. Decreased breath sound at the base. No wheeze or crackle. HEART: S1, S2, regular rate and rhythm. No loud murmur ABDOMEN: Soft, no tenderness , guarding or rigidity, no organomegaly EXTREMITIES: No edema of feet. - Labs CBC & Chem 7: 09/16/21 04:03 09/16/21 04:03 Labs: Abnormal Lab Results - Last 24 Hours (Table) 09/15/21 09/16/21 09/16/21 Range/Units 23:54 04:03 04:03 RBC 2.94 L (3.80-5.40) m/uL Hgb 9.4 L (11.4-16.0) gm/dL Hct 29.6 L (34.0-46.0) % MCV 100.6 H (80.0-100.0) fL Lymphocytes # 0.9 L (1.0-4.8) k/uL ABG pCO2 (35-45) mmHg ABG HCO3 (21-25) mmol/L ABG Total CO2 (19-24) mmol/L Carbon Dioxide 38 H (22-30) mmol/L BUN 30 H (7-17) mg/dL Glucose 110 H (74-99) mg/dL POC Glucose (mg/dL) 103 H (75-99) mg/dL Calcium 7.2 L (8.4-10.2) mg/dL 09/16/21 09/16/21 09/16/21 Range/Units 05:47 11:42 17:37 RBC (3.80-5.40) m/uL Hgb (11.4-16.0) gm/dL Hct (34.0-46.0) % MCV (80.0-100.0) fL Lymphocytes # (1.0-4.8) k/uL ABG pCO2 56 H (35-45) mmHg ABG HCO3 39 H (21-25) mmol/L ABG Total CO2 41 H (19-24) mmol/L Carbon Dioxide (22-30) mmol/L BUN (7-17) mg/dL Glucose (74-99) mg/dL POC Glucose (mg/dL) 168 H 119 H (75-99) mg/dL Calcium (8.4-10.2) mg/dL Microbiology - Last 24 Hours (Table) 09/10/21 12:45 Blood Culture - Final Blood No Growth after 144 hours 09/10/21 13:03 Blood Culture - Final Blood No Growth after 144 hours Assessment and Plan Assessment: 1-Patient with acute respiratory failure which is multifactorial in this patient who did have a covid19 pneumonia and a concern for possible secondary bacterial patient With a new fever blood and sputum cultures will be requested as well as CRP and procalcitonin we will add Azactam 2 g every 8 hours while waiting for the cultures to be finalized 2patient with a deep tissue injury to the sacral and upper back area no cellulitis, keep the area dry and of the pressure Time with Patient: Less than 30
[2021-09-17 00:16] LABS: Glucose,Whole Blood 101 mg/dL (75-99)
[2021-09-17] MEDS: AZTREONAM 2 GM in SODIUM CHLORIDE 0.9% 100 ML IVPB SCH ×3 (00:16→15:04)
[2021-09-17] MEDS: INSULIN ASPART (NovoLOG) 100 UNIT/ML VIAL SQ SCH ×4 (00:18→18:24)
[2021-09-17] MEDS: CLINDAMYCIN 600 MG in DEXTROSE 5% IN WATER 50 ML IVPB SCH ×6 (01:40→18:24)
[2021-09-17 05:36] LABS: Basophils % (A) 0 %; Eosinophils % (A) 0 %; HCT 30.4 % (34.0-46.0); HGB 9.8 gm/dL (11.4-16.0); Lymphocytes # (A) 0.9 k/uL (1.0-4.8); Lymphocytes % (A) 10 %; MCH 32.1 pg (25.0-35.0); MCHC 32.1 g/dL (31.0-37.0); Mean Platelet Volume 10.8; Monocytes # (A) 0.3 k/uL (0-1.0); Monocytes % (A) 4 %; Neutrophils # (A) 7.3 k/uL (1.3-7.7); Neutrophils % (A) 85 %; Platelet Count 160 k/uL (150-450); RBC 3.04 m/uL (3.80-5.40); RDW 13.3 % (11.5-15.5); WBC 8.7 k/uL (3.8-10.6)
[2021-09-17 06:25] LABS: ABG HCO3 36 mmol/L (21-25); ABG Oxygen Saturation 96.4 % (94-97); ABG PCO2 49 mmHg (35-45); ABG PH 7.47 (7.35-7.45); ABG PO2 97 mmHg (83-108); ABG TCO2 37 mmol/L (19-24); Allen Test Performed? Yes
[2021-09-17 06:32] LABS: African American GFR (CKD) >90 (>60 ml/min/1.73 sqM); Anion Gap 1 mmol/L; Blood Urea Nitrogen 26 mg/dL (7-17); Calcium 7.9 mg/dL (8.4-10.2); Carbon Dioxide 35 mmol/L (22-30); Chloride 104 mmol/L (98-107); Glucose 128 mg/dL (74-99); Non-African American GFR(CKD) >90 (>60 ml/min/1.73 sqM); Potassium 3.8 mmol/L (3.5-5.1); Sodium 140 mmol/L (137-145)
[2021-09-17] MEDS ORDERED: CISATRACURIUM 2 MG/ML 5 ML VIAL IV ONE (06:38)
--- NOTE | 2021-09-17 07:15 | XR ---
EXAMINATION TYPE: XR chest 1V portable DATE OF EXAM: 09/17/2021 CLINICAL HISTORY: Difficulty breathing progress study. TECHNIQUE: Single AP portable semiupright view of the chest is obtained. COMPARISON: Chest x-ray from one day earlier and older studies. FINDINGS: Stable endotracheal and orogastric tubes. Cardiac silhouette size is stable and within normal limits with single lead pacemaker/AICD. Backgroun d Chronic emphysematous change with left basilar opacity redemonstrated. Right lung remains clear. Os seous structures are intact. IMPRESSION: Chronic emphysematous change with left basilar acute infiltrate and/or atelectasis and li walter small left pleural effusion are all redemonstrated. No significant change from one day earlier.
[2021-09-17] MEDS ORDERED: POTASSIUM BICARBONATE/CIT AC 20 MEQ TABLET.EFF NG-TUBE SCH (08:00)
[2021-09-17] MEDS: LEVOFLOXACIN 500MG-D5W PMX 500 MG in DEXTROSE/WATER 1 100ML.BAG IVPB SCH (08:37)
[2021-09-17] MEDS: levETIRAcetam IV 1,500 MG in SALINE 1 100ML.BAG IVPB SCH ×2 (08:37→19:38)
[2021-09-17] MEDS: CHLORHEXIDINE GLUCONATE 15 ML CUP MUCOUS MEM SCH ×2 (08:38→19:37)
[2021-09-17] MEDS: carBAMazepine 200 MG TAB PO SCH ×3 (08:38→19:37)
[2021-09-17] MEDS: AMIODARONE 200 MG TAB PO SCH (08:38)
[2021-09-17] MEDS: ENOXAPARIN 40 MG/0.4 ML SYRINGE SQ SCH (08:38)
[2021-09-17] MEDS: DEXAMETHASONE SOD PHOSPHATE 10 MG/ML 1 ML VIAL IVP SCH (08:38)
[2021-09-17] MEDS: PANTOPRAZOLE 40 MG/10 ML VIAL IV SCH (08:38)
[2021-09-17] MEDS: CHOLECALCIFEROL 125 MCG (5000 IU) TABLET PO SCH (08:38)
[2021-09-17] MEDS: SODIUM CHLORIDE 0.45% 1,000 ML IV SCH (08:39)
--- NOTE | 2021-09-17 08:57 | P.PN ---
Subjective Progress Note Date: 09/16/21 This is a pleasant 51 years old female with past medical history of Coronary Artery Disease, Heart Failure, CVA/TIA, Pulmonary Embolus (PE), Seizure Disorder, Last seizure 2009, CVA 2007 with L sided weakness arm and leg and has L foot drop, TIA 2018, cardiomyopathy, R PE and pneumothorax/pneumonia following leg fracture in 1994, gestational diabetes with all pregnancies , bilateral glaucoma with surgery, psoriasis in the past, UTIs. She is a status post Pacemaker, history of Bilateral eye surgery for glaucoma, Anxiety, Depression, Current every day smoker Patient presents because of altered mental status. Information was limited from the patient. It was obtained from the chart and medical staff. Also as per family patient was able to go to the bathroom, was more lethargic and tired over the last day. While in the emergency room focal mild seizure is noticed On admission patient had and fever of 101. She is tachypneic at 26-40, tachycardic 110-140, also she is hypoxic saturating 72% on room air Labs showing WBC of 10.5, hemoglobin of 16.3, platelet count of 197. INR 1.7. Sodium 164, creatinine 1.7, lactic acid elevated 4.6. Liver enzymes elevated with AST 202 and ALT 81. Bilirubin is normal at 1.3. Urine analysis is highly suspicious of infection Urine drug screen is negative Cash versus positive Chest x-ray showing left perihilar and left lower lobe area of infiltrate and small effusion correlates for pneumonia CT of the brain without contrast showing no intracranial hemorrhage, evidence of remote ischemic change. However there is vague low attenuation near the left thalamus and left cerebral peduncle. Acute ischemia in the differential diagnosis. Recommend stat MRI of brain with MRSA [place] of [place] as clinically warranted. In the emergency room patient was started on aztreonam and IV vancomycin, Keppra and heparin drip 09/11/2021 Patient today was still in the ICU, she was very weak and obtunded, she will wake up to certain stabilized and moans, she does not follow commands she cannot, gait she moved both extremities symmetrically. R on she had collapse of her left lung cancer and she has to be intubated and repeat chest x-ray showing better. A of the left lung. She is tachypneic with a breathing rate 22, no more fever since yesterday. Her sodium improved down to 144 and she was started on normal saline, creatinine 1.1, Ejection fraction showed 30-35% which is slice worsened from 06/2021 where it was 35-40% She remains on dexamethasone, IV vancomycin and clindamycin, heparin drip, Keppra and normal saline at 75 mL/h 09/12/2021 Patient with respiratory failures and she was intubated and placed on mechanical ventilation with pulmonary/critical care team following her mostly. There is no more seizure-like activity noticed. She still tachypneic with a breathing rate of 32 blood pressure 100/70, she is needing FiO2 of 80% and PEEP of 20. She has no more fevers since admission. Urine culture is growing gram-negative bacilli. Sodium is 146, WBCs is increased at 16.5 K. PH showing acidosis with 7.1 and elevated pCO2 at 83. Chest x-ray showing left sided opacities with near full. A of the left lung. Patient kept on antibiotics in the form of clindamycin and Levaquin and fluconazole. Also she remains on dexamethasone, and so a heparin to Lovenox. Also continued on seizure medication 1500 mg twice a day and IV fluids per pulmonary team. Neurology team on the case 09/13/2021 Patient remains intubated and sedated with pulmonary/critical care team following her closely. Her PEEP is lower today to 18. She remains on FiO2 of 50%. She is tachypneic at 32 about blood pressure is controlled. Her inflammatory markers are increased to LDH of 1009 and CRP of 25.1. Bicarb is elevated at 31 WBC is 17.7, sodium improved to 142. Creatinine improved to 0.6. Chest x-ray showed improving left lung infiltrate. PH is improved slightly 7.2 with pCO2 is slightly better at 79. Urine culture is growing E. coli which is sensitive to the antibiotics. Currently patient is covered with clindamycin, Levaquin and fluconazole. Also she is on dexamethasone 6 mg, Keppra 1500 mg and half-normal saline at 50 mL per hour Anticoagulation switch from heparin drip and to Lovenox 09/14/2021 Patient still intubated and sedated on mechanical ventilation with pulmonary/critical care team following her closely and just her vent setting. Today her FiO2 of 55%, and she is tachypneic at 33 breath per minute. Labs showing stable findings with sodium 141, creatinine 0.8, liver enzymes slightly elevated, LDH slightly down at 797 and CRP 2-3.2. Same leukocytosis at 14.7. Her pH is 7.2 and carbon dioxide is 82. D-dimer mildly elevated at 0.9, just x-ray showing bilateral infiltrate with no significant change from prior. She remains on the same antibiotic of clindamycin, Levaquin, dexamethasone, Keppra 1500 mg and half normal saline at 50 mL/h 09/15/2021 Patient in the ICU intubated and sedated, with pulmonary/critical care team following closely. FiO2 still 50%, hemodynamically showing both staple blood pressure 101/40, patient is tachypneic more than 30 per minutes. PEEP is lower. wbc of 11.3, hemoglobin 9.4, sodium 140, creatinine 0.8. chest x-ray: mild worsening infiltrate in the left lobe. patient continued with the same treatment of clindamycin, levaquin, dexamethasone, keppra and she received 1 l of normal saline today. 09/16/2021 Patient is seen and evaluated and follow-up continues to be closely monitored in the ICU. Multiple medical consultations following including infectious disease, pulmonary stock or delivery clerk, and neurology. Patient continues on mechanical vent with an FiO2 of 50% and PEEP is 10. Weaning is being continued and PEEP is being titrated down to 8. Patient continues with sedation holidays and very minimal propofol and patient is now off Nimbex and very minimal stimulus noted. Patient response to painful stimulus minimally. Plan is for possible CT of the brain repeat this afternoon. Patient also being closely monitored for continued seizures of which she does have a past medical history of. Patient is also Covid positive and infectious disease is following and patient is maintained on clindamycin along with Levaquin. Chest x-ray today shows correlate for left lower lobe pneumonia versus atelectasis with possible associated effusion. Review of systems: Unable to obtain as patient continues to be on mechanical ventilation and sedated Labs: WBC is 8.4, hemoglobin is 9.4, platelets are 162, sodium is 140, potassium is 3.8, BUN is 30, creatinine is 0.81, calcium is 7.2 Active Medications Amiodarone HCl (Amiodarone 200 Mg Tab) 200 mg PO DAILY [facility] Last Admin: 09/16/21 08:22 Dose: 200 mg Documented by: Artificial Tears (Artificial Tears-Hypromellose Drops 15 Ml Btl) 1 drops BOTH EYES QID PRN PRN Reason: Dry Eye(s) Last Admin: 09/16/21 08:58 Dose: 1 drops Documented by: Atorvastatin Calcium (Atorvastatin 80 Mg Tab) 80 mg PO HS [facility] Last Admin: 09/15/21 20:14 Dose: 80 mg Documented by: Carbamazepine (Carbamazepine 200 Mg Tab) 200 mg PO TID [facility] Last Admin: 09/16/21 08:24 Dose: 200 mg Documented by: Chlorhexidine Gluconate (Chlorhexidine Gluconate 15 Ml Cup) 15 ml MUCOUS MEM BID [facility] Last Admin: 09/16/21 08:20 Dose: 15 ml Documented by: Cholecalciferol (Cholecalciferol 125 Mcg (5000 Iu) Tablet) 125 mcg PO DAILY [facility] Last Admin: 09/16/21 08:22 Dose: 125 mcg Documented by: Dexamethasone Sodium Phosphate (Dexamethasone Sod Phosphate 10 Mg/Ml 1 Ml Vial) 6 mg IVP DAILY [facility] Last Admin: 09/16/21 08:21 Dose: 6 mg Documented by: Enoxaparin Sodium (Enoxaparin 40 Mg/0.4 Ml Syringe) 40 mg SQ DAILY [facility] Last Admin: 09/16/21 08:21 Dose: 40 mg Documented by: Clindamycin Phosphate 600 mg/ (Dextrose/Water) 54 mls @ 50 mls/hr IVPB Q8H [facility] Last Admin: 09/16/21 09:33 Dose: 50 mls/hr Documented by: Norepinephrine Bitartrate 32 (mg/ Sodium Chloride) 250 mls @ 1.383 mls/hr IV .Q24H [facility]; Protocol Last Admin: 09/16/21 00:07 Dose: Not Given Documented by: Cisatracurium Besylate 200 mg/ (Sodium Chloride) 200 mls @ 3.54 mls/hr IV .Q24H [facility]; Protocol Last Admin: 09/15/21 01:58 Dose: 2 mcg/kg/min, 7.08 mls/hr Documented by: Levetiracetam 1,500 mg/ IV (Solution) 100 mls @ 400 mls/hr IVPB Q12HR [facility] Last Admin: 09/16/21 08:23 Dose: 400 mls/hr Documented by: Sodium Chloride (Saline 0.45%) 1,000 mls @ 50 mls/hr IV .Q20H [facility] Last Admin: 09/16/21 12:22 Dose: 50 mls/hr Documented by: Levofloxacin 500 mg/ IV (Solution) 100 mls @ 100 mls/hr IVPB Q24H [facility] Last Admin: 09/16/21 08:22 Dose: 100 mls/hr Documented by: Propofol 1,000 mg/ IV Solution 100 mls @ 0 mls/hr IV .Q0M [facility]; Protocol Last Titration: 09/16/21 10:44 Dose: 0 mcg/kg/min, 0 mls/hr Documented by: Insulin Aspart (Insulin Aspart (Novolog) 100 Unit/Ml Vial) 0 unit SQ Q6H [facility]; Protocol Last Admin: 09/16/21 12:22 Dose: 2 unit Documented by: Miscellaneous Information (Potassium Replacement Protocol 1 Each Misc) 1 each MISCELLANE DAILY PRN; Protocol PRN Reason: Per Protocol Naloxone HCl (Naloxone 0.4 Mg/Ml 1 Ml Vial) 0.2 mg IV Q2M PRN PRN Reason: Opioid Reversal Pantoprazole Sodium (Pantoprazole 40 Mg/10 Ml Vial) 40 mg IV DAILY [facility] Last Admin: 09/16/21 08:20 Dose: 40 mg Documented by: Physical exam: GENERAL: The patient is intubated and sedated, FiO2 is 50% and PEEP is 8 HEENT: Pupils are round and equally reacting to light. EOMI. No scleral icterus. No conjunctival pallor. Normocephalic, atraumatic. No pharyngeal erythema. No thyromegaly. CARDIOVASCULAR: S1 and S2 present. No murmurs, rubs, or gallops. PULMONARY: Chest is clear to auscultation, no wheezing or crackles. ABDOMEN: Soft, nontender, nondistended, normoactive bowel sounds. No palpable organomegaly. MUSCULOSKELETAL: No joint swelling or deformity. EXTREMITIES: No cyanosis, clubbing, or pedal edema. NEUROLOGICAL: Gross neurological examination did not reveal any focal deficits. SKIN: No rashes. no petechiae. Assessment: Altered mental status could be metabolic/toxic encephalopathy, rule out other intracranial lesions, seizure Left lower lobe pneumonia, rule out aspiration pneumonia Sepsis secondary to UTI and pneumonia Breakthrough seizure Acute stroke is suspected with new focus at the left thalamus and left cerebral peduncle Bilateral Covid pneumonia Acute hypoxic respiratory failure secondary to COVID-19 pneumonia Increased inflammatory markers elevated troponin, most likely type II ischemia. Rule out primary cardiac causes Cardiomyopathy with most recent EF of 30-35% Hypernatremia Acute kidney injury Mild elevated liver enzymes History of coronary artery disease History of pulmonary embolism History of seizure disorder, last seizure was in 2009 as per documents History 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 left foot drop History of glaucoma status post surgery Status post permanent pacemaker Nicotine dependence GI prophylaxis DVT prophylaxis Full code Plan: This is a pleasant 51 years old female who presents with altered mental status, pneumonia, UTI, possible stroke, seizure and positive for covid pneumonia Continue with Keppra and neurology following and plan is for repeat CT of the brain as patient has been off sedation and minimally responsive. CT of the brain shows old right hemisphere infarct without change old left posterior frontal lobe cortical infarct without change and no acute abnormality. pulmonary following, continue the broad-spectrum antibiotics with clindamycin and Levaquin and fluconazole. Follow-up sputum and blood Cultures grown sensitive E. coli which is covered Continue with dexamethasone, vitamin and zinc supplements along with Lovenox Cardiology team consult for elevated troponin, patient does not have A. fib per professional architect Prognosis remains guarded Objective - Vital Signs Vital signs: Vital Signs Temp 98.2 F 09/16/21 04:00 Pulse 121 H 09/16/21 07:00 Resp 33 H 09/16/21 07:00 BP 120/59 09/16/21 07:00 Pulse Ox 94 L 09/16/21 07:00 Intake & Output 09/15/21 09/16/21 09/16/21 18:59 06:59 18:59 Intake Total 1171 1244.998 Output Total 1165 1300 Balance 6 -55.002 Weight 63.8 kg 65 kg Intake: IV 627 636 Pressure bag 27 36 Sodium Chloride 0.45% 1, 600 600 000 ml @ 50 mls/hr IV . Q20H [facility] Rx#:[id number] Intake, IV Titration 100 134.998 Amount propofoL 1,000 mg In 100 134.998 Empty Bag 1 bag @ Titrate IV .Q0M ADDIE Rx#: [id number] Tube Feeding 384 384 Other 60 90 Output: Urine 1165 1300 Other: Voiding Method Indwelling Catheter Indwelling Catheter ABP, PAP, CO, CI - Last Documented Arterial Blood Pressure 130/48 - Labs CBC & Chem 7: 09/17/21 04:20 09/17/21 04:20 Labs: Abnormal Lab Results - Last 24 Hours (Table) 09/15/21 09/15/21 09/15/21 Range/Units 04:16 11:56 17:33 RBC (3.80-5.40) m/uL Hgb (11.4-16.0) gm/dL Hct (34.0-46.0) % MCV (80.0-100.0) fL Lymphocytes # (1.0-4.8) k/uL ABG pCO2 (35-45) mmHg ABG HCO3 (21-25) mmol/L ABG Total CO2 (19-24) mmol/L Carbon Dioxide (22-30) mmol/L BUN (7-17) mg/dL Glucose (74-99) mg/dL POC Glucose (mg/dL) 151 H 137 H (75-99) mg/dL Calcium (8.4-10.2) mg/dL Procalcitonin 0.27 H (0.02-0.09) ng/mL 09/15/21 09/16/21 09/16/21 Range/Units 23:54 04:03 04:03 RBC 2.94 L (3.80-5.40) m/uL Hgb 9.4 L (11.4-16.0) gm/dL Hct 29.6 L (34.0-46.0) % MCV 100.6 H (80.0-100.0) fL Lymphocytes # 0.9 L (1.0-4.8) k/uL ABG pCO2 (35-45) mmHg ABG HCO3 (21-25) mmol/L ABG Total CO2 (19-24) mmol/L Carbon Dioxide 38 H (22-30) mmol/L BUN 30 H (7-17) mg/dL Glucose 110 H (74-99) mg/dL POC Glucose (mg/dL) 103 H (75-99) mg/dL Calcium 7.2 L (8.4-10.2) mg/dL Procalcitonin (0.02-0.09) ng/mL 09/16/21 Range/Units 05:47 RBC (3.80-5.40) m/uL Hgb (11.4-16.0) gm/dL Hct (34.0-46.0) % MCV (80.0-100.0) fL Lymphocytes # (1.0-4.8) k/uL ABG pCO2 56 H (35-45) mmHg ABG HCO3 39 H (21-25) mmol/L ABG Total CO2 41 H (19-24) mmol/L Carbon Dioxide (22-30) mmol/L BUN (7-17) mg/dL Glucose (74-99) mg/dL POC Glucose (mg/dL) (75-99) mg/dL Calcium (8.4-10.2) mg/dL Procalcitonin (0.02-0.09) ng/mL Microbiology - Last 24 Hours (Table) 09/10/21 12:45 Blood Culture - Preliminary Blood No Growth after 120 hours 09/10/21 13:03 Blood Culture - Preliminary Blood No Growth after 120 hours
[2021-09-17 09:46] LABS: Glucose,Whole Blood 123 mg/dL (75-99)
--- NOTE | 2021-09-17 10:26 | P.PN ---
Subjective Progress Note Date: 09/17/21 The patient is seen at bedside and per nurse patient is about the same. She is on IV Propofol 30mcg/kg/min. She continues to be intubated and on ventilator. CT of the head on 09/16/2021 was reported as old right hemispheric infarct without change. Old left posterior frontal lobe cortical infarct with that change. No acute abnormality. I personally reviewed the CT of the head and I do agree there is no acute or subacute ischemia there is no intracranial hemorrhage. The patient had old the strokes in the past predominantly over the right right MCA and right occipital and old left frontal. Per the patient's nurse, she had holiday sedation but was bitting on tube and had to restarted on it. Objective - Vital Signs Vital signs: Vital Signs Temp 98.1 F 09/17/21 08:00 Pulse 112 H 09/17/21 10:00 Resp 33 H 09/17/21 10:00 BP 102/62 09/17/21 10:00 Pulse Ox 96 09/17/21 10:00 Intake & Output 09/16/21 09/17/21 09/17/21 18:59 06:59 18:59 Intake Total 5520.161 5502.827 529.264 Output Total 2024 1585 200 Balance -838.445 -340.173 329.264 Weight 63.9 kg Intake: IV 636 636 206 Clindamycin 600 mg In 100 Dextrose 5% in Water 50 ml @ 50 mls/hr IVPB Q8H [facility] Rx#:[id number] Pressure bag 36 36 6 Sodium Chloride 0.45% 1, 600 600 100 000 ml @ 50 mls/hr IV . Q20H [facility] Rx#:[id number] Intake, IV Titration 52.555 110.827 255.264 Amount Aztreonam 2 gm In Sodium 100 Chloride 0.9% 100 ml @ 33 .3 mls/hr IVPB Q8HR [facility] Rx#:[id number] Levofloxacin 500Mg-D5w 100 Pmx 500 mg In Dextrose/ Water 1 100ml.bag @ 100 mls/hr IVPB Q24H [facility] Rx#: [id number] propofoL 1,000 mg In 52.555 110.827 55.264 Empty Bag 1 bag @ Titrate IV .Q0M [facility] Rx#: [id number] Tube Feeding 408 408 68 Other 90 90 Output: Urine 2024 1585 200 Other: Voiding Method Indwelling Catheter Indwelling Catheter Indwelling Catheter ABP, PAP, CO, CI - Last Documented Arterial Blood Pressure 157/80 - Exam GENERAL: The patient is lying in bed and is not in acute distress. CHEST: on NE. LUNG: Intubated on ventilator. NEUROLOGICAL: Limited since is on IV Propofol 30mcg/kg/min. Higher mental function: Comatose GCS 3 (E1, VT1, M1). No responsive or following commands. Cranial nerves: I had to manually open eyes and primary gaze is midline. The pupils are round, pinpoint, equal and reactive to light. No corneal reflex appreciated. No facial weakness. Is breathing over the vent. Questionable very weak gag reflex. Otherwise rest could not be assessed. Motor: The strength is 0/5 throughout. Sensation: Could not assess light touch. To painful stimuli not withdrawing throughout. SOME OF THE WORK-UP: * Cash virus PCR is positive * Positive urinary tract infection with urine culture of E. coli. * Ammonia level 24 * CT of the head on 09/16/2021 was reported as old right hemispheric infarct without change. Old left posterior frontal lobe cortical infarct with that change. No acute abnormality. I personally reviewed the CT of the head and I do agree there is no acute or subacute ischemia there is no intracranial hemorrhage. The patient had old the strokes in the past predominantly over the right right MCA and right occipital and old left frontal. * Patient's blood test shows Tegretol level <3.0, Keppra 79.2 and Neurontin leve l <1.0. * On Tegretol 200 mg 3 times a dayand Keppra 1500 mg twice a day. * Urine drug seeing is not detected. Serum alcohol was less than 10. * EEG was performed and it is reported as background slowing of at least moderate degree. This is suggestive of generalized cerebral dysfunction as can be seen with toxic metabolic encephalopathy or due to diffuse structural brain abnormality or postictal effect. No epileptiform activity was seen. - Labs CBC & Chem 7: 09/17/21 04:20 09/17/21 04:20 Labs: Abnormal Lab Results - Last 24 Hours (Table) 09/16/21 09/16/21 09/17/21 Range/Units 11:42 17:37 00:14 RBC (3.80-5.40) m/uL Hgb (11.4-16.0) gm/dL Hct (34.0-46.0) % Lymphocytes # (1.0-4.8) k/uL ABG pH (7.35-7.45) ABG pCO2 (35-45) mmHg ABG HCO3 (21-25) mmol/L ABG Total CO2 (19-24) mmol/L Carbon Dioxide (22-30) mmol/L BUN (7-17) mg/dL Glucose (74-99) mg/dL POC Glucose (mg/dL) 168 H 119 H 101 H (75-99) mg/dL Calcium (8.4-10.2) mg/dL C-Reactive Protein (<1.0) mg/dL 09/17/21 09/17/21 09/17/21 Range/Units 04:20 04:20 04:20 RBC 3.04 L (3.80-5.40) m/uL Hgb 9.8 L (11.4-16.0) gm/dL Hct 30.4 L (34.0-46.0) % Lymphocytes # 0.9 L (1.0-4.8) k/uL ABG pH (7.35-7.45) ABG pCO2 (35-45) mmHg ABG HCO3 (21-25) mmol/L ABG Total CO2 (19-24) mmol/L Carbon Dioxide 35 H (22-30) mmol/L BUN 26 H (7-17) mg/dL Glucose 128 H (74-99) mg/dL POC Glucose (mg/dL) (75-99) mg/dL Calcium 7.9 L (8.4-10.2) mg/dL C-Reactive Protein 20.0 H (<1.0) mg/dL 09/17/21 09/17/21 Range/Units 06:20 06:30 RBC (3.80-5.40) m/uL Hgb (11.4-16.0) gm/dL Hct (34.0-46.0) % Lymphocytes # (1.0-4.8) k/uL ABG pH 7.47 H (7.35-7.45) ABG pCO2 49 H (35-45) mmHg ABG HCO3 36 H (21-25) mmol/L ABG Total CO2 37 H (19-24) mmol/L Carbon Dioxide (22-30) mmol/L BUN (7-17) mg/dL Glucose (74-99) mg/dL POC Glucose (mg/dL) 123 H (75-99) mg/dL Calcium (8.4-10.2) mg/dL C-Reactive Protein (<1.0) mg/dL Microbiology - Last 24 Hours (Table) 09/10/21 12:45 Blood Culture - Final Blood No Growth after 144 hours 09/10/21 13:03 Blood Culture - Final Blood No Growth after 144 hours Assessment and Plan Assessment: * Altered mental status, likely due to toxic metabolic encephalopathy, postictal state and medication effect (IV Propofol). Nimbex has been off since 09/15/21AM. Causes multifactorial as mentioned below. * Breakthrough seizure, likely due to multiple metabolic derangements. Patient had seizure disorder for long time, seizures in remission since 2009. * Acute Covid-19 infection with pneumonia. * Probable acute UTI. 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 * History of pacemaker. Plan: * Patient's blood test shows Tegretol level <3.0, Keppra 79.2 and Neurontin level <1.0. * On Tegretol 200 mg 3 times a dayand Keppra 1500 mg twice a day. * EEG was performed and it is reported as background slowing of at least moderate degree. This is suggestive of generalized cerebral dysfunction as can be seen with toxic metabolic encephalopathy or due to diffuse structural brain abnormality or postictal effect. No epileptiform activity was seen. * CT of the head on 09/16/2021 was reported as old right hemispheric infarct without change. Old left posterior frontal lobe cortical infarct with that change. No acute abnormality. I personally reviewed the CT of the head and I do agree there is no acute or subacute ischemia there is no intracranial hemorrhage. The patient had old the strokes in the past predominantly over the right right MCA and right occipital and old left frontal. * Resume anticoagulation with Eliquis as early as possible per Dr. Chua. Cardiology also on board. * Other medical management as per IM, critical care. * Upon discharge, the patient needs to follow-up with a neurologist within 1-2 weeks as outpatient. * Condition: Is critical and appears poor. The plan is discussed with the nurse. Phuc Serrano M.D. Neuro-Hospitalist Time with Patient: Less than 30
[2021-09-17] MEDS: DEXMEDETOMIDINE/0.9% NACL(PMX) 400 MCG in EMPTY BAG 1 BAG IV SCH ×2 (10:59→19:37)
[2021-09-17 11:48] LABS: Glucose,Whole Blood 154 mg/dL (75-99)
--- NOTE | 2021-09-17 12:46 | P.PN ---
Subjective Progress Note Date: 09/17/21 Principal diagnosis: Acute COVID-19 pneumonia with acute hypoxic respiratory failure and altered mental status. This is a 51-year-old female patient was brought into because of an altered mental status. The patient was found by her brother was concerned about her mental status. The patient has poor baseline performance and functional status and more recently she wasn't able to take care of herself. She was feeling more lethargic and tired and based on all this, she was brought into the emergency department. In the ED, the patient was having seizures and tachycardia and she was altered and unresponsive. The patient was given IV Ativan. At the time of my evaluation, the patient was quite sedated. No tracheal evidence of a seizure activity and the patient was withdrawing and 4 extremities without any limitation. The patient furthermore was found to have significant abnormalities in her blood work. The patient also tested positive for COVID 19. In summary, the patient was found to have a sodium level LXIV, chloride of 116, FiO2 of 4.6, troponin of 0.3, and UA was abnormal highly suspicious for underlying urine checked infection. Urine drug screen was negative. At this point in time, the patient on IV fluids and the patient is receiving D5 water at the rate of 100 mL an hour. The patient was given a combination of vancomycin and aztreonam as empiric antibiotic coverage. The patient was also started on Decadron 6 mg IV every 12 hours. Chest x-ray showing a left perihilar and lower lobe pulmonary infiltration and the patient is currently on 6 L of oxygen by nasal cannula with a pulse of a 98%. She is in sinus tachycardia. Nevertheless, she has history of atrial fibrillation. She has been minimal, to coagulation with Eliquis and she was also taken amiodarone on outpatient basis. She is also known to have cardiomyopathy with an ejection fraction of 30-35%. On regular inspection, the patient looks quite debilitated. She has a body mass index of 19.7. Very poor oral hygiene and multiple decayed teeth. Her personal hygiene is also poor. 09/13/2021, the patient remains intubated on mechanical ventilator. She was intubated as the patient lost her left lung and there was complete atelectasis of the left lung due to mucous plugs. Bronchoscopy was done post intubation. Reexpansion of the left lung was achieved. Nevertheless, the left lung is infiltrated. Subsequently the patient went into ARDS. At this point in time, the patient is intubated on mechanical ventilator. She remains on a volume cycled mechanical ventilation. She is sedated with propofol running at 50 mcg/kg per minute and the patient is also on Nimbex running at 2 mcg/kg per minute. Hemodynamically, she is stable. On mechanical ventilator, she is an assist-control at the rate of 32 with a tidal volume of 300 and FiO2 of 70% with a PEEP of 20. Morning blood gases showed a pH of 7.21 with a pCO2 of 79 and pO2 of 136. Based on that, further adjustments on a mechanical ventilator with him. On today's chest x-ray, there is no evidence of pneumothorax. Left lung is infiltrated compared to the right and there is still some atelectatic changes and infiltration of the left lung base. The bronchoscopy and the lavage of the left lung was done. Cultures still pending. Urine cultures positive for gram- negative bacillus and the patient is still on a combination of Levaquin and clindamycin. The patient is also on Diflucan due to extensive oropharyngeal candidiasis was noted at a time of intubation. The patient was started on enteral feeding for nutritional support. She is currently receiving vitamin 1.2 at the rate of 20 mL an hour. IV fluids in the form of half-normal saline at the rate of 45 mL an hour. The patient has a white cell count of 17.7, hemoglobin is at 12.7, d-dimer is at 0.8, sodium is at 142, BUN is at 27 with a creatinine of 0.6. LDH level is 1009 and the CRP level is 25. Note that the LDH is lower compared to yesterday. No pressors for now. Urine output is adequate. No fever. No other significant events overnight. Patient was reevaluated today on 09/14/2021, patient remains intubated and mechanically ventilated, she is on assist control rate of 32, tidal volume of 300 FiO2 50%, PEEP 18. ABG showed a pO2 of 95 pCO2 of 82 pH of 7.25. Tidal volume was increased to 325, and PEEP was cut down to 14. Patient remains on propofol at 50 minute, Nimbex at 2 mcg/kg/m. IV fluid is 0.45 at 50 mL per ayah r, and 0.9 normal saline at 20 mL per hour. Patient is on enteral feeding, she is receiving vital 1.4 at 34/34. Patient has a right femoral triple-lumen catheter, right femoral arterial line, I was told that the patient has a large area of decubitus ulcer on her coccyx, hence I recommended consultation to 1 services. Antibiotics martinez she is on clindamycin, fluconazole, and she is also on Levaquin. Patient remains sedated and paralyzed, and I could not assess her mental status. WBC count is 17.4 hemoglobin 11.3, d-dimer is 0.91. Basic metabolic profile is normal renal profile is normal liver enzymes are borderline elevated LDH is 797 C-reactive protein is 23.2. Reevaluated today on 09/15/2021, patient is basically about the same, remains intubated and mechanically ventilated. Sedated and paralyzed, however I plan to discontinue Nimbex today. Chest x-ray showed mostly bibasilar airspace disease, patient is on a rate of 32, tidal volume 325 FiO2 50% and PEEP 14. She is still requiring propofol at 15 Nimbex at 2 and she is on feeding using vital 1.2 at 31 mL per hour. Her LDH today is down to 891 from 1509 and her C-reactive protein is down to 19 from 25 recently. Ventilatory-martinez I cut down her repeat to 10 from 14, Her on 50% for now. Her WBC count today is 11.3 hemoglobin is 10.0. ABG showed a pO2 of 93 pCO2 75 pH of 7.33 electrolytes are normal bicarb is 38 BUN is 53 creatinine 0.87. Overall the patient seems to be ventilating better, now that the PEEP is down to 10, I would discontinue Nimbex, and hopefully the patient could be maintained only on propofol and maybe adding fentanyl if needed. In the next 24 hours, I'm hoping that I could start addressing weaning constipation or at least weaning trials on a weaning mode of mechanical ventilation. Likely pressure support and CPAP if tolerated. Patient was reevaluated today on 09/16/21, remains in the ICU, intubated and mechanically ventilated. Patient is now off Nimbex, and she is on relatively low dose of propofol, which I plan to discontinue and address mental status, her Nimbex has been off for the last 24 hours, and propofol was discontinued earlier today, however so far the patient is not responding to any stimuli. She opens eyes only with deep painful stimuli. She is being followed by neurology. Patient is now on assist control rate of 32 tidal volume 325 FiO2 50% and PEEP is 10. I am keeping her FiO2 at 50% but I'm cutting down the PEEP down to 8. And I'm continuing to hold sedation. Her ABG today showed a pO2 of 96 pCO2 56 pH of 7.45. Her labs are basically unremarkable. CBC is relatively normal except for hemoglobin of 9.4. Sodium is normal at 140. Bicarb is 38. Renal profile is normal. And calcium is 7.2. Chest x-ray is showing left lower lobe pneumonia/atelectasis. Patient was seen by neurology today, still believe that the patient has toxic metabolic encephalopathy, post ictal state, and breakthrough seizures however the recommendation is to continue to hold sedation and if no improvement off sedation but later today, may consider CT of the brain. Patient was reevaluated today on 09/17/21, she remains in the ICU, intubated and mechanically ventilated. Patient is on assist control rate of 32 tidal volume of 325 FiO2 50% PEEP of 8. ABG showed a pO2 of 97 pCO2 49 pH of 7.42. Last night, the patient was completely off sedation, she became extremely agitated, restless, not making any purposeful movements, patient was not synchronous with the ventilator, and she was difficult to ventilate, hence the patient was given 1 dose of Nimbex, and placed back on propofol at 50 mcg/kg/m, it was increased even to as high as 75, patient remains asynchronous, and then Nimbex was given. Today the patient is off propofol, she is not waking up yet, patient is fully ventilated, and she is not arousable even to deep painful stimuli. She is not requiring any pressors, I have a feeling that I could potentially wean this patient if she wakes up, and she becomes unresponsive and appropriate. But that is yet to be determined, today I recommended that we start the patient on Precedex and discontinue propofol altogether. We will keep the patient on the present vent settings, we'll continue Precedex, and if she wakes up, we will could potentially wean and decide whether the patient could even be extubated. May see count today is 8.7 hemoglobin is 9.8. Electrodes are normal renal profile is normal. Objective - Vital Signs Vital signs: Vital Signs Temp 98.1 F 09/17/21 08:00 Pulse 112 H 09/17/21 12:00 Resp 26 H 09/17/21 12:00 BP 136/83 09/17/21 12:00 Pulse Ox 99 09/17/21 12:00 Intake & Output 09/16/21 09/17/21 09/17/21 18:59 06:59 18:59 Intake Total 4020.400 5420.827 729.377 Output Total 2024 1585 750 Balance -838.445 -340.173 -20.623 Weight 63.9 kg Intake: IV 636 636 312 Clindamycin 600 mg In 100 Dextrose 5% in Water 50 ml @ 50 mls/hr IVPB Q8H ADDIE Rx#:[id number] Pressure bag 36 36 12 Sodium Chloride 0.45% 1, 600 600 200 000 ml @ 50 mls/hr IV . Q20H ADDIE Rx#:[id number] Intake, IV Titration 52.555 110.827 281.377 Amount Aztreonam 2 gm In Sodium 100 Chloride 0.9% 100 ml @ 33 .3 mls/hr IVPB Q8HR [facility] Rx#:[id number] Dexmedetomidine/0.9% NaCl 4.26 (Pmx) 400 mcg In Empty Bag 1 bag @ 0.2 MCG/KG/HR 3.195 mls/hr IV .Q24H [facility]IE Rx#:[id number] Levofloxacin 500Mg-D5w 100 Pmx 500 mg In Dextrose/ Water 1 100ml.bag @ 100 mls/hr IVPB Q24H ADDIE Rx#: [id number] propofoL 1,000 mg In 52.555 110.827 77.117 Empty Bag 1 bag @ Titrate IV .Q0M ADDIE Rx#: [id number] Tube Feeding 408 408 136 Other 90 90 Output: Urine 2024 1585 750 Other: Voiding Method Indwelling Catheter Indwelling Catheter Indwelling Catheter ABP, PAP, CO, CI - Last Documented Arterial Blood Pressure 133/73 - Exam -GENERAL: Revealed a 51-year-old female mechanically ventilated, presently patient is off propofol, and she is off Nimbex. HEENT: Adelita, nonicteric, no neck masses, no JVD, endotracheal tube and orogastric tube are intact. CARDIOVASCULAR: S1 and S2 present. No murmurs, rubs, or gallops. PULMONARY: Symmetrical chest expansion crackles at the bases. ABDOMEN: Soft nontender no megaly no rebound no guarding. MUSCULOSKELETAL: No joint swelling or deformity. EXTREMITIES: No cyanosis, clubbing, or pedal edema. NEUROLOGICAL: Unresponsive to any deep painful stimuli. A brandon is now off all sedatives and paralytics. SKIN: large coccygeal ulcer, otherwise unremarkable. - Labs CBC & Chem 7: 09/17/21 04:20 09/17/21 04:20 Labs: Abnormal Lab Results - Last 24 Hours (Table) 09/16/21 09/17/21 09/17/21 Range/Units 17:37 00:14 04:20 RBC (3.80-5.40) m/uL Hgb (11.4-16.0) gm/dL Hct (34.0-46.0) % Lymphocytes # (1.0-4.8) k/uL ABG pH (7.35-7.45) ABG pCO2 (35-45) mmHg ABG HCO3 (21-25) mmol/L ABG Total CO2 (19-24) mmol/L Carbon Dioxide (22-30) mmol/L BUN (7-17) mg/dL Glucose (74-99) mg/dL POC Glucose (mg/dL) 119 H 101 H (75-99) mg/dL Calcium (8.4-10.2) mg/dL C-Reactive Protein 20.0 H (<1.0) mg/dL 09/17/21 09/17/21 09/17/21 Range/Units 04:20 04:20 06:20 RBC 3.04 L (3.80-5.40) m/uL Hgb 9.8 L (11.4-16.0) gm/dL Hct 30.4 L (34.0-46.0) % Lymphocytes # 0.9 L (1.0-4.8) k/uL ABG pH 7.47 H (7.35-7.45) ABG pCO2 49 H (35-45) mmHg ABG HCO3 36 H (21-25) mmol/L ABG Total CO2 37 H (19-24) mmol/L Carbon Dioxide 35 H (22-30) mmol/L BUN 26 H (7-17) mg/dL Glucose 128 H (74-99) mg/dL POC Glucose (mg/dL) (75-99) mg/dL Calcium 7.9 L (8.4-10.2) mg/dL C-Reactive Protein (<1.0) mg/dL 09/17/21 09/17/21 Range/Units 06:30 11:45 RBC (3.80-5.40) m/uL Hgb (11.4-16.0) gm/dL Hct (34.0-46.0) % Lymphocytes # (1.0-4.8) k/uL ABG pH (7.35-7.45) ABG pCO2 (35-45) mmHg ABG HCO3 (21-25) mmol/L ABG Total CO2 (19-24) mmol/L Carbon Dioxide (22-30) mmol/L BUN (7-17) mg/dL Glucose (74-99) mg/dL POC Glucose (mg/dL) 123 H 154 H (75-99) mg/dL Calcium (8.4-10.2) mg/dL C-Reactive Protein (<1.0) mg/dL Microbiology - Last 24 Hours (Table) 09/10/21 12:45 Blood Culture - Final Blood No Growth after 144 hours 09/10/21 13:03 Blood Culture - Final Blood No Growth after 144 hours Assessment and Plan Assessment: Impression: Acute hypoxic respiratory failure secondary to COVID-19 pneumonia Altered mental status, multifactorial, acute ischemic stroke , not seen on CT of the head on 09/16 2021, she had old CVS infarcts in the right hemisphere no acute abnormality noted on her CT of the head., Her previous CVA was mostly in the right MCA and right occipital as well as left frontal areas. Acute COVID-19 pneumonia Acute intravascular depletion with dehydration and electrolyte imbalance on her initial presentation. History of seizure activity. Previous history of pulmonary embolism, on long-term treatment with Eliquis. Paroxysmal atrial fibrillation Cardiomyopathy and LV dysfunction with ejection fraction of 30-35%. History of pacemaker implantation. 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 coli urinary tract infection History of psoriasis Sacral /coccygeal decubitus ulcer Acute metabolic encephalopathy Recommendation: Continue ventilatory support. However I plan to stop all jose rafael tives except Precedex, and give the patient trial of weaning if she does wake up and if she does demonstrate adequate mental status. Continue on FiO2 of 50% and PEEP of 8. Continue supportive care measures Continue antibiotics, Levaquin and clindamycin Continue Lovenox 40 mg subcu for DVT Continue IV Decadron Continue Keppra And carbamazepine as ordered by neurology on the case. continue to monitor inflammatory markers continue enteral feeding continue to monitor in the ICU Patient is critically ill, Critical care time is over 30 minutes. Time with Patient: Greater than 30
--- NOTE | 2021-09-17 16:16 | P.PN ---
Subjective Progress Note Date: 09/17/21 This is a pleasant 51 years old female with past medical history of Coronary Artery Disease, Heart Failure, CVA/TIA, Pulmonary Embolus (PE), Seizure Disorder, Last seizure 2009, CVA 2007 with L sided weakness arm and leg and has L foot drop, TIA 2018, cardiomyopathy, R PE and pneumothorax/pneumonia following leg fracture in 1994, gestational diabetes with all pregnancies , bilateral glaucoma with surgery, psoriasis in the past, UTIs. She is a status post Pacemaker, history of Bilateral eye surgery for glaucoma, Anxiety, Depression, Current every day smoker Patient presents because of altered mental status. Information was limited from the patient. It was obtained from the chart and medical staff. Also as per family patient was able to go to the bathroom, was more lethargic and tired over the last day. While in the emergency room focal mild seizure is noticed On admission patient had and fever of 101. She is tachypneic at 26-40, tachycardic 110-140, also she is hypoxic saturating 72% on room air Labs showing WBC of 10.5, hemoglobin of 16.3, platelet count of 197. INR 1.7. Sodium 164, creatinine 1.7, lactic acid elevated 4.6. Liver enzymes elevated with AST 202 and ALT 81. Bilirubin is normal at 1.3. Urine analysis is highly suspicious of infection Urine drug screen is negative Cash versus positive Chest x-ray showing left perihilar and left lower lobe area of infiltrate and small effusion correlates for pneumonia CT of the brain without contrast showing no intracranial hemorrhage, evidence of remote ischemic change. However there is vague low attenuation near the left thalamus and left cerebral peduncle. Acute ischemia in the differential diagnosis. Recommend stat MRI of brain with MRSA [place] [facility] [place] as clinically warranted. In the emergency room patient was started on aztreonam and IV vancomycin, Keppra and heparin drip 09/11/2021 Patient today was still in the ICU, she was very weak and obtunded, she will wake up to certain stabilized and moans, she does not follow commands she cannot, gait she moved both extremities symmetrically. R on she had collapse of her left lung cancer and she has to be intubated and repeat chest x-ray showing better. A of the left lung. She is tachypneic with a breathing rate 22, no more fever since yesterday. Her sodium improved down to 144 and she was started on normal saline, creatinine 1.1, Ejection fraction showed 30-35% which is slice worsened from 06/2021 where it was 35-40% She remains on dexamethasone, IV vancomycin and clindamycin, heparin drip, Keppra and normal saline at 75 mL/h 09/12/2021 Patient with respiratory failures and she was intubated and placed on mechanical ventilation with pulmonary/critical care team following her mostly. There is no more seizure-like activity noticed. She still tachypneic with a breathing rate of 32 blood pressure 100/70, she is needing FiO2 of 80% and PEEP of 20. She has no more fevers since admission. Urine culture is growing gram-negative bacilli. Sodium is 146, WBCs is increased at 16.5 K. PH showing acidosis with 7.1 and elevated pCO2 at 83. Chest x-ray showing left sided opacities with near full. A of the left lung. Patient kept on antibiotics in the form of clindamycin and Levaquin and fluconazole. Also she remains on dexamethasone, and so a heparin to Lovenox. Also continued on seizure medication 1500 mg twice a day and IV fluids per pulmonary team. Neurology team on the case 09/13/2021 Patient remains intubated and sedated with pulmonary/critical care team following her closely. Her PEEP is lower today to 18. She remains on FiO2 of 50%. She is tachypneic at 32 about blood pressure is controlled. Her inflammatory markers are increased to LDH of 1009 and CRP of 25.1. Bicarb is elevated at 31 WBC is 17.7, sodium improved to 142. Creatinine improved to 0.6. Chest x-ray showed improving left lung infiltrate. PH is improved slightly 7.2 with pCO2 is slightly better at 79. Urine culture is growing E. coli which is sensitive to the antibiotics. Currently patient is covered with clindamycin, Levaquin and fluconazole. Also she is on dexamethasone 6 mg, Keppra 1500 mg and half-normal saline at 50 mL per hour Anticoagulation switch from heparin drip and to Lovenox 09/14/2021 Patient still intubated and sedated on mechanical ventilation with pulmonary/critical care team following her closely and just her vent setting. Today her FiO2 of 55%, and she is tachypneic at 33 breath per minute. Labs showing stable findings with sodium 141, creatinine 0.8, liver enzymes slightly elevated, LDH slightly down at 797 and CRP 2-3.2. Same leukocytosis at 14.7. Her pH is 7.2 and carbon dioxide is 82. D-dimer mildly elevated at 0.9, just x-ray showing bilateral infiltrate with no significant change from prior. She remains on the same antibiotic of clindamycin, Levaquin, dexamethasone, Keppra 1500 mg and half normal saline at 50 mL/h 09/15/2021 Patient in the ICU intubated and sedated, with pulmonary/critical care team following closely. FiO2 still 50%, hemodynamically showing both staple blood pressure 101/40, patient is tachypneic more than 30 per minutes. PEEP is lower. wbc of 11.3, hemoglobin 9.4, sodium 140, creatinine 0.8. chest x-ray: mild worsening infiltrate in the left lobe. patient continued with the same treatment of clindamycin, levaquin, dexamethasone, keppra and she received 1 l of normal saline today. 09/16/2021 Patient is seen and evaluated and follow-up continues to be closely monitored in the ICU. Multiple medical consultations following including infectious disease, pulmonary learning development specialist, and neurology. Patient continues on mechanical vent with an FiO2 of 50% and PEEP is 10. Weaning is being continued and PEEP is being titrated down to 8. Patient continues with sedation holidays and very minimal propofol and patient is now off Nimbex and very minimal stimulus noted. Patient response to painful stimulus minimally. Plan is for possible CT of the brain repeat this afternoon. Patient also being closely monitored for continued seizures of which she does have a past medical history of. Patient is also Covid positive and infectious disease is following and patient is maintained on clindamycin along with Levaquin. Chest x-ray today shows correlate for left lower lobe pneumonia versus atelectasis with possible associated effusion. 09/17/2021 Patient is seen in follow-up this morning closely monitored in the ICU. Neurology also following and patient is maintained on IV Keppra. Patient also continues on IV antibiotics in the form of aztreonam and clindamycin with infectious disease following. Patient urine culture showing E. coli. Chest x- ray today shows chronic emphysematous changes with left basilar acute infiltrate and/or atelectasis and likely small left pleural effusion all redemonstrated with no significant change from previous day. Neurology following And okay to resume anticoagulant as there is no evidence of new intracranial process or hemorrhage. Patient is off sedation and continues to be unresponsive. Review of systems: Unable to obtain as patient continues to be on mechanical ventilation and sedated Labs: WBC is white blood count is 8.7, hemoglobin 9.8 and platelets are 160, sodium is 140, potassium 3.8, BUN 26, creatinine 0.76, calcium is 7.9, CRP is 20 Active Medications Amiodarone HCl (Amiodarone 200 Mg Tab) 200 mg PO DAILY [facility] Last Admin: 09/17/21 08:38 Dose: 200 mg Documented by: Artificial Tears (Artificial Tears-Hypromellose Drops 15 Ml Btl) 1 drops BOTH EYES QID PRN PRN Reason: Dry Eye(s) Last Admin: 09/16/21 08:58 Dose: 1 drops Documented by: Atorvastatin Calcium (Atorvastatin 80 Mg Tab) 80 mg PO HS [facility] Last Admin: 09/16/21 20:08 Dose: 80 mg Documented by: Carbamazepine (Carbamazepine 200 Mg Tab) 200 mg PO TID [facility] Last Admin: 09/17/21 08:38 Dose: 200 mg Documented by: Chlorhexidine Gluconate (Chlorhexidine Gluconate 15 Ml Cup) 15 ml MUCOUS MEM BID [facility] Last Admin: 09/17/21 08:38 Dose: 15 ml Documented by: Cholecalciferol (Cholecalciferol 125 Mcg (5000 Iu) Tablet) 125 mcg PO DAILY [facility] Last Admin: 09/17/21 08:38 Dose: 125 mcg Documented by: Dexamethasone Sodium Phosphate (Dexamethasone Sod Phosphate 10 Mg/Ml 1 Ml Vial) 6 mg IVP DAILY [facility] Last Admin: 09/17/21 08:38 Dose: 6 mg Documented by: Enoxaparin Sodium (Enoxaparin 40 Mg/0.4 Ml Syringe) 40 mg SQ DAILY [facility] Last Admin: 09/17/21 08:38 Dose: 40 mg Documented by: Clindamycin Phosphate 600 mg/ (Dextrose/Water) 54 mls @ 50 mls/hr IVPB Q8H [facility] Last Admin: 09/17/21 08:37 Dose: 50 mls/hr Documented by: Norepinephrine Bitartrate 32 (mg/ Sodium Chloride) 250 mls @ 1.383 mls/hr IV .Q24H [facility]; Protocol Last Admin: 09/16/21 20:05 Dose: Not Given Documented by: Cisatracurium Besylate 200 mg/ (Sodium Chloride) 200 mls @ 3.54 mls/hr IV .Q24H [facility]; Protocol Last Admin: 09/16/21 20:08 Dose: Not Given Documented by: Levetiracetam 1,500 mg/ IV (Solution) 100 mls @ 400 mls/hr IVPB Q12HR [facility] Last Admin: 09/17/21 08:37 Dose: 400 mls/hr Documented by: Sodium Chloride (Saline 0.45%) 1,000 mls @ 50 mls/hr IV .Q20H [facility] Last Admin: 09/17/21 08:39 Dose: 50 mls/hr Documented by: Levofloxacin 500 mg/ IV (Solution) 100 mls @ 100 mls/hr IVPB Q24H [facility] Last Admin: 09/17/21 08:37 Dose: 100 mls/hr Documented by: Propofol 1,000 mg/ IV Solution 100 mls @ 0 mls/hr IV .Q0M [facility]; Protocol Last Titration: 09/17/21 10:51 Dose: 0 mcg/kg/min, 0 mls/hr Documented by: Aztreonam 2 gm/ Sodium (Chloride) 100 mls @ 33.3 mls/hr IVPB Q8HR [facility]; Protocol Last Admin: 09/17/21 08:38 Dose: 33.3 mls/hr Documented by: Dexmedetomidine HCl 400 mcg/ (IV Solution) 100 mls @ 3.195 mls/hr IV .Q24H [facility]; Protocol Last Titration: 09/17/21 12:19 Dose: 0.5 mcg/kg/hr, 7.988 mls/hr Documented by: Insulin Aspart (Insulin Aspart (Novolog) 100 Unit/Ml Vial) 0 unit SQ Q6H [facility]; Protocol Last Admin: 09/17/21 12:18 Dose: 1 unit Documented by: Miscellaneous Information (Potassium Replacement Protocol 1 Each Misc) 1 each MISCELLANE DAILY PRN; Protocol PRN Reason: Per Protocol Naloxone HCl (Naloxone 0.4 Mg/Ml 1 Ml Vial) 0.2 mg IV Q2M PRN PRN Reason: Opioid Reversal Pantoprazole Sodium (Pantoprazole 40 Mg/10 Ml Vial) 40 mg IV DAILY [facility] Last Admin: 09/17/21 08:38 Dose: 40 mg Documented by: Physical exam: GENERAL: The patient is intubated and sedated, FiO2 is 50% and PEEP is 8 HEENT: Pupils are round and equally reacting to light. EOMI. No scleral icterus. No conjunctival pallor. Normocephalic, atraumatic. No pharyngeal erythema. No thyromegaly. CARDIOVASCULAR: S1 and S2 present. No murmurs, rubs, or gallops. PULMONARY: Chest is clear to auscultation, no wheezing or crackles. ABDOMEN: Soft, nontender, nondistended, normoactive bowel sounds. No palpable organomegaly. MUSCULOSKELETAL: No joint swelling or deformity. EXTREMITIES: No cyanosis, clubbing, or pedal edema. NEUROLOGICAL: Gross neurological examination did not reveal any focal deficits. SKIN: No rashes. no petechiae. Assessment: Altered mental status could be metabolic/toxic encephalopathy, rule out other intracranial lesions, seizure Left lower lobe pneumonia, rule out aspiration pneumonia Acute urinary tract infection, present on admission with culture showing E. coli Sepsis secondary to UTI and pneumonia Breakthrough seizure Bilateral Covid pneumonia Acute hypoxic respiratory failure secondary to COVID-19 pneumonia Increased inflammatory markers elevated troponin, most likely type II ischemia. Rule out primary cardiac causes Cardiomyopathy with most recent EF of 30-35% Hypernatremia, improving Acute kidney injury, improved Mild elevated liver enzymes History of coronary artery disease History of pulmonary embolism History of seizure disorder, last seizure was in 2009 as per documents History 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 left foot drop History of glaucoma status post surgery Status post permanent pacemaker Nicotine dependence GI prophylaxis DVT prophylaxis Full code Plan: This is a pleasant 51 years old female who presents with altered mental status, pneumonia, UTI, possible stroke although most likely old infarcts noted on CT, seizure and positive for covid pneumonia Continue with Keppra and neurology following and plan is for repeat CT of the brain as patient has been off sedation and minimally responsive. CT of the brain shows old right hemisphere infarct without change old left posterior f rontal lobe cortical infarct without change and no acute abnormality. pulmonary following, continue the broad-spectrum antibiotics with fluconazole. Urine Cultures grown sensitive E. coli which is covered With aztreonam and clindamycin Continue with dexamethasone, vitamin and zinc supplements along with Lovenox Cardiology team consult for elevated troponin, patient does not have A. fib per funeral assistant Prognosis remains quite guarded Objective - Vital Signs Vital signs: Vital Signs Temp 98.2 F 09/17/21 04:00 Pulse 113 H 09/17/21 07:00 Resp 32 H 09/17/21 07:00 BP 97/59 09/17/21 07:00 Pulse Ox 98 09/17/21 07:00 Intake & Output 09/16/21 09/17/21 09/17/21 18:59 06:59 18:59 Intake Total 5827.105 1127.827 Output Total 2024 1585 Balance -838.445 -340.173 Weight 63.9 kg Intake: IV 636 636 Pressure bag 36 36 Sodium Chloride 0.45% 1, 600 600 000 ml @ 50 mls/hr IV . Q20H [facility] Rx#:[id number] Intake, IV Titration 52.555 110.827 Amount propofoL 1,000 mg In 52.555 110.827 Empty Bag 1 bag @ Titrate IV .Q0M [facility] Rx#: [id number] Tube Feeding 408 408 Other 90 90 Output: Urine 2024 1585 Other: Voiding Method Indwelling Catheter Indwelling Catheter ABP, PAP, CO, CI - Last Documented Arterial Blood Pressure 105/48 - Labs CBC & Chem 7: 09/17/21 04:20 09/17/21 04:20 Labs: Abnormal Lab Results - Last 24 Hours (Table) 09/16/21 09/16/21 09/17/21 Range/Units 11:42 17:37 00:14 RBC (3.80-5.40) m/uL Hgb (11.4-16.0) gm/dL Hct (34.0-46.0) % Lymphocytes # (1.0-4.8) k/uL ABG pH (7.35-7.45) ABG pCO2 (35-45) mmHg ABG HCO3 (21-25) mmol/L ABG Total CO2 (19-24) mmol/L Carbon Dioxide (22-30) mmol/L BUN (7-17) mg/dL Glucose (74-99) mg/dL POC Glucose (mg/dL) 168 H 119 H 101 H (75-99) mg/dL Calcium (8.4-10.2) mg/dL C-Reactive Protein (<1.0) mg/dL 09/17/21 09/17/21 09/17/21 Range/Units 04:20 04:20 04:20 RBC 3.04 L (3.80-5.40) m/uL Hgb 9.8 L (11.4-16.0) gm/dL Hct 30.4 L (34.0-46.0) % Lymphocytes # 0.9 L (1.0-4.8) k/uL ABG pH (7.35-7.45) ABG pCO2 (35-45) mmHg ABG HCO3 (21-25) mmol/L ABG Total CO2 (19-24) mmol/L Carbon Dioxide 35 H (22-30) mmol/L BUN 26 H (7-17) mg/dL Glucose 128 H (74-99) mg/dL POC Glucose (mg/dL) (75-99) mg/dL Calcium 7.9 L (8.4-10.2) mg/dL C-Reactive Protein 20.0 H (<1.0) mg/dL 09/17/21 Range/Units 06:20 RBC (3.80-5.40) m/uL Hgb (11.4-16.0) gm/dL Hct (34.0-46.0) % Lymphocytes # (1.0-4.8) k/uL ABG pH 7.47 H (7.35-7.45) ABG pCO2 49 H (35-45) mmHg ABG HCO3 36 H (21-25) mmol/L ABG Total CO2 37 H (19-24) mmol/L Carbon Dioxide (22-30) mmol/L BUN (7-17) mg/dL Glucose (74-99) mg/dL POC Glucose (mg/dL) (75-99) mg/dL Calcium (8.4-10.2) mg/dL C-Reactive Protein (<1.0) mg/dL Microbiology - Last 24 Hours (Table) 09/10/21 12:45 Blood Culture - Final Blood No Growth after 144 hours 09/10/21 13:03 Blood Culture - Final Blood No Growth after 144 hours
[2021-09-17 18:05] LABS: Glucose,Whole Blood 143 mg/dL (75-99)
[2021-09-17] MEDS: CISATRACURIUM 200 MG in SODIUM CHLORIDE 0.9% 180 ML IV SCH (19:34)
[2021-09-17] MEDS: NOREPINEPHRINE 32 MG in SODIUM CHLORIDE 0.9% 218 ML IV SCH (19:35)
[2021-09-17] MEDS: ATORVASTATIN 80 MG TAB PO SCH (19:37)
[2021-09-18] MEDS: INSULIN ASPART (NovoLOG) 100 UNIT/ML VIAL SQ SCH ×4 (00:13→18:16)
[2021-09-18 00:14] LABS: Glucose,Whole Blood 123 mg/dL (75-99)
[2021-09-18] MEDS: AZTREONAM 2 GM in SODIUM CHLORIDE 0.9% 100 ML IVPB SCH ×3 (00:24→15:32)
[2021-09-18] MEDS: CLINDAMYCIN 600 MG in DEXTROSE 5% IN WATER 50 ML IVPB SCH ×6 (00:24→18:17)
[2021-09-18] MEDS: DEXMEDETOMIDINE/0.9% NACL(PMX) 400 MCG in EMPTY BAG 1 BAG IV SCH ×2 (03:56→12:14)
[2021-09-18] MEDS: SODIUM CHLORIDE 0.45% 1,000 ML IV SCH (04:05)
[2021-09-18 05:01] LABS: ABG Base Excess 7.2 mmol/L; ABG HCO3 31 mmol/L (21-25); ABG Oxygen Saturation 96.5 % (94-97); ABG PCO2 44 mmHg (35-45); ABG PH 7.46 (7.35-7.45); ABG PO2 107 mmHg (83-108); ABG TCO2 32 mmol/L (19-24); Allen Test Performed? Yes
[2021-09-18 05:42] LABS: Basophils % (A) 0 %; Eosinophils % (A) 0 %; HCT 29.5 % (34.0-46.0); HGB 9.5 gm/dL (11.4-16.0); Lymphocytes # (A) 1.2 k/uL (1.0-4.8); Lymphocytes % (A) 16 %; MCH 32.2 pg (25.0-35.0); MCHC 32.1 g/dL (31.0-37.0); MCV 100.2 fL (80.0-100.0); Macrocytosis Slight; Mean Platelet Volume 10.6; Monocytes # (A) 0.2 k/uL (0-1.0); Monocytes % (A) 2 %; Neutrophils # (A) 6.1 k/uL (1.3-7.7); Neutrophils % (A) 80 %; Platelet Count 190 k/uL (150-450); RBC 2.95 m/uL (3.80-5.40); RDW 14.1 % (11.5-15.5); WBC 7.6 k/uL (3.8-10.6)
[2021-09-18 05:54] LABS: African American GFR (CKD) >90 (>60 ml/min/1.73 sqM); Anion Gap 3 mmol/L; Blood Urea Nitrogen 34 mg/dL (7-17); Calcium 7.7 mg/dL (8.4-10.2); Carbon Dioxide 32 mmol/L (22-30); Chloride 103 mmol/L (98-107); Glucose 143 mg/dL (74-99); Non-African American GFR(CKD) >90 (>60 ml/min/1.73 sqM); Potassium 3.8 mmol/L (3.5-5.1); Sodium 138 mmol/L (137-145)
[2021-09-18] MEDS ORDERED: POTASSIUM BICARBONATE/CIT AC 20 MEQ TABLET.EFF NG-TUBE SCH (06:00)
[2021-09-18] MEDS: PANTOPRAZOLE 40 MG/10 ML VIAL IV SCH (08:00)
[2021-09-18] MEDS: ENOXAPARIN 40 MG/0.4 ML SYRINGE SQ SCH (08:00)
[2021-09-18] MEDS: CHLORHEXIDINE GLUCONATE 15 ML CUP MUCOUS MEM SCH ×2 (08:01→19:40)
[2021-09-18] MEDS: AMIODARONE 200 MG TAB PO SCH (08:01)
[2021-09-18] MEDS: CHOLECALCIFEROL 125 MCG (5000 IU) TABLET PO SCH (08:01)
[2021-09-18] MEDS: DEXAMETHASONE SOD PHOSPHATE 10 MG/ML 1 ML VIAL IVP SCH (08:01)
[2021-09-18] MEDS: levETIRAcetam IV 1,500 MG in SALINE 1 100ML.BAG IVPB SCH ×2 (08:01→19:40)
[2021-09-18] MEDS: carBAMazepine 200 MG TAB PO SCH ×3 (08:01→19:40)
[2021-09-18] MEDS: LEVOFLOXACIN 500MG-D5W PMX 500 MG in DEXTROSE/WATER 1 100ML.BAG IVPB SCH (08:02)
--- NOTE | 2021-09-18 10:14 | P.PN ---
Subjective Progress Note Date: 09/18/21 The patient is seen at bedside and per patient's nurse no drastic improvement in patient's condition. She continues to be inutbated on ventilator. IV Propofol was discontinued for since yesterday AM shift. She is currently on IV Precedex 0.7mcg/kg/hr. No further seizure-like activity noted by nursing staff overnight or today. Objective - Vital Signs Vital signs: Vital Signs Temp 99.1 F 09/18/21 04:00 Pulse 105 H 09/18/21 07:00 Resp 27 H 09/18/21 07:00 BP 112/70 09/18/21 07:00 Pulse Ox 96 09/18/21 07:00 Intake & Output 09/17/21 09/18/21 09/18/21 18:59 06:59 18:59 Intake Total 8130.997 4067.317 87 Output Total 1350 1490 150 Balance 138.377 -204.683 -63 Weight 64 kg Intake: IV 733 636 53 Clindamycin 600 mg In 150 Dextrose 5% in Water 50 ml @ 50 mls/hr IVPB Q8H [facility] Rx#:[id number] Pressure bag 33 36 3 Sodium Chloride 0.45% 1, 550 600 50 000 ml @ 50 mls/hr IV . Q20H [facility] Rx#:[id number] Intake, IV Titration 381.377 151.317 Amount Aztreonam 2 gm In Sodium 200 Chloride 0.9% 100 ml @ 33 .3 mls/hr IVPB Q8HR [facility] Rx#:[id number] Dexmedetomidine/0.9% NaCl 4.26 151.317 (Pmx) 400 mcg In Empty Bag 1 bag @ 0.2 MCG/KG/HR 3.195 mls/hr IV .Q24H [facility] Rx#:[id number] Levofloxacin 500Mg-D5w 100 Pmx 500 mg In Dextrose/ Water 1 100ml.bag @ 100 mls/hr IVPB Q24H [facility] Rx#: [id number] propofoL 1,000 mg In 77.117 Empty Bag 1 bag @ Titrate IV .Q0M [facility] Rx#: [id number] Tube Feeding 374 408 34 Other 90 Output: Urine 1350 1490 150 Other: Voiding Method Indwelling Catheter Indwelling Catheter # Bowel Movements 1 ABP, PAP, CO, CI - Last Documented Arterial Blood Pressure 135/63 - Exam GENERAL: The patient is lying in bed and is not in acute distress. CHEST: on NE. LUNG: Intubated on ventilator. NEUROLOGICAL: Limited since is on IV Precedex 0.7mcg/kg/hr. Higher mental function: Comatose GCS 5 (E3, VT1, M1). No responsive or following commands. Cranial nerves: I had to manually open eyes and primary gaze is midline. The pupils are round, 2mm, equal and reactive to light. No corneal reflex apprecia sarah. No facial weakness. Is breathing over the vent. Has weak gag reflex. Otherwise rest could not be assessed. Motor: The strength is 0/5 throughout. Sensation: Could not assess light touch. To painful stimuli not withdrawing throughout. SOME OF THE WORK-UP: * Cash virus PCR is positive * Positive urinary tract infection with urine culture of E. coli. * Ammonia level 24 * CT of the head on 09/16/2021 was reported as old right hemispheric infarct without change. Old left posterior frontal lobe cortical infarct with that change. No acute abnormality. I personally reviewed the CT of the head and I do agree there is no acute or subacute ischemia there is no intracranial hemorrhage. The patient had old the strokes in the past predominantly over the right right MCA and right occipital and old left frontal. * Patient's blood test shows Tegretol level <3.0, Keppra 79.2 and Neurontin level <1.0. * On Tegretol 200 mg 3 times a dayand Keppra 1500 mg twice a day. * Urine drug seeing is not detected. Serum alcohol was less than 10. * EEG was performed and it is reported as background slowing of at least moderate degree. This is suggestive of generalized cerebral dysfunction as can be seen with toxic metabolic encephalopathy or due to diffuse structural brain abnormality or postictal effect. No epileptiform activity was seen. - Labs CBC & Chem 7: 09/18/21 05:02 09/18/21 05:02 Labs: Abnormal Lab Results - Last 24 Hours (Table) 09/17/21 09/17/21 09/17/21 Range/Units 04:20 11:45 18:03 RBC (3.80-5.40) m/uL Hgb (11.4-16.0) gm/dL Hct (34.0-46.0) % MCV (80.0-100.0) fL ABG pH (7.35-7.45) ABG HCO3 (21-25) mmol/L ABG Total CO2 (19-24) mmol/L Carbon Dioxide (22-30) mmol/L BUN (7-17) mg/dL Glucose (74-99) mg/dL POC Glucose (mg/dL) 154 H 143 H (75-99) mg/dL Calcium (8.4-10.2) mg/dL Procalcitonin 0.20 H (0.02-0.09) ng/mL 09/18/21 09/18/21 09/18/21 Range/Units 00:12 04:58 05:02 RBC 2.95 L (3.80-5.40) m/uL Hgb 9.5 L (11.4-16.0) gm/dL Hct 29.5 L (34.0-46.0) % MCV 100.2 H (80.0-100.0) fL ABG pH 7.46 H (7.35-7.45) ABG HCO3 31 H (21-25) mmol/L ABG Total CO2 32 H (19-24) mmol/L Carbon Dioxide (22-30) mmol/L BUN (7-17) mg/dL Glucose (74-99) mg/dL POC Glucose (mg/dL) 123 H (75-99) mg/dL Calcium (8.4-10.2) mg/dL Procalcitonin (0.02-0.09) ng/mL 09/18/21 Range/Units 05:02 RBC (3.80-5.40) m/uL Hgb (11.4-16.0) gm/dL Hct (34.0-46.0) % MCV (80.0-100.0) fL ABG pH (7.35-7.45) ABG HCO3 (21-25) mmol/L ABG Total CO2 (19-24) mmol/L Carbon Dioxide 32 H (22-30) mmol/L BUN 34 H (7-17) mg/dL Glucose 143 H (74-99) mg/dL POC Glucose (mg/dL) (75-99) mg/dL Calcium 7.7 L (8.4-10.2) mg/dL Procalcitonin (0.02-0.09) ng/mL Microbiology - 24 Hours (Table) 09/16/21 21:25 Blood Culture - Preliminary Blood No Growth after 24 hours Assessment and Plan Assessment: * Altered mental status, likely due to toxic metabolic encephalopathy, postictal state and medication effect (IV Precedex). Nimbex has been off since 09/15/21AM. IV Propofol has been off since 09/17 Causes multifactorial as mentioned below. * Breakthrough seizure, likely due to multiple metabolic derangements. Patient had seizure disorder for long time, seizures in remission since 2009. * Acute Covid-19 infection with pneumonia. * Probable acute UTI. 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 * History of pacemaker. Plan: * Patient's blood test shows Tegretol level <3.0, Keppra 79.2 and Neurontin level <1.0. * On Tegretol 200 mg 3 times a dayand Keppra 1500 mg twice a day. * EEG was performed and it is reported as background slowing of at least moderate degree. This is suggestive of generalized cerebral dysfunction as can be seen with toxic metabolic encephalopathy or due to diffuse structural brain abnormality or postictal effect. No epileptiform activity was seen. * CT of the head on 09/16/2021 was reported as old right hemispheric infarct without change. Old left posterior frontal lobe cortical infarct with that change. No acute abnormality. I personally reviewed the CT of the head and I do agree there is no acute or subacute ischemia there is no intracranial hemorrhage. The patient had old the strokes in the past predominantly over the right right MCA and right occipital and old left frontal. * Resume anticoagulation with Eliquis as early as possible per Dr. Chua. Cardiology also on board. * Other medical management as per IM, critical care. * Upon discharge, the patient needs to follow-up with a neurologist within 1-2 weeks as outpatient. * Condition: Is critical and appears poor. The plan is discussed with the nurse. I discussed the case with the patient's father (Chris) via phone and he stated he would like to talk to rest of family members and will contact us tomorrow with an answer of family wishes. Phuc Serrnao M.D. Neuro-Hospitalist Time with Patient: Less than 30
[2021-09-18 11:42] LABS: Glucose,Whole Blood 199 mg/dL (75-99)
--- NOTE | 2021-09-18 12:21 | P.PN ---
Subjective Progress Note Date: 09/18/21 Principal diagnosis: Acute COVID-19 pneumonia with acute hypoxic respiratory failure and altered mental status. This is a 51-year-old female patient was brought into because of an altered mental status. The patient was found by her brother was concerned about her mental status. The patient has poor baseline performance and functional status and more recently she wasn't able to take care of herself. She was feeling more lethargic and tired and based on all this, she was brought into the emergency department. In the ED, the patient was having seizures and tachycardia and she was altered and unresponsive. The patient was given IV Ativan. At the time of my evaluation, the patient was quite sedated. No tracheal evidence of a seizure activity and the patient was withdrawing and 4 extremities without any limitation. The patient furthermore was found to have significant abnormalities in her blood work. The patient also tested positive for COVID 19. In summary, the patient was found to have a sodium level LXIV, chloride of 116, FiO2 of 4.6, troponin of 0.3, and UA was abnormal highly suspicious for underlying urine checked infection. Urine drug screen was negative. At this point in time, the patient on IV fluids and the patient is receiving D5 water at the rate of 100 mL an hour. The patient was given a combination of vancomycin and aztreonam as empiric antibiotic coverage. The patient was also started on Decadron 6 mg IV every 12 hours. Chest x-ray showing a left perihilar and lower lobe pulmonary infiltration and the patient is currently on 6 L of oxygen by nasal cannula with a pulse of a 98%. She is in sinus tachycardia. Nevertheless, she has history of atrial fibrillation. She has been minimal, to coagulation with Eliquis and she was also taken amiodarone on outpatient basis. She is also known to have cardiomyopathy with an ejection fraction of 30-35%. On regular inspection, the patient looks quite debilitated. She has a body mass index of 19.7. Very poor oral hygiene and multiple decayed teeth. Her personal hygiene is also poor. 09/13/2021, the patient remains intubated on mechanical ventilator. She was intubated as the patient lost her left lung and there was complete atelectasis of the left lung due to mucous plugs. Bronchoscopy was done post intubation. Reexpansion of the left lung was achieved. Nevertheless, the left lung is infiltrated. Subsequently the patient went into ARDS. At this point in time, the patient is intubated on mechanical ventilator. She remains on a volume cycled mechanical ventilation. She is sedated with propofol running at 50 mcg/kg per minute and the patient is also on Nimbex running at 2 mcg/kg per minute. Hemodynamically, she is stable. On mechanical ventilator, she is an assist-control at the rate of 32 with a tidal volume of 300 and FiO2 of 70% with a PEEP of 20. Morning blood gases showed a pH of 7.21 with a pCO2 of 79 and pO2 of 136. Based on that, further adjustments on a mechanical ventilator with him. On today's chest x-ray, there is no evidence of pneumothorax. Left lung is infiltrated compared to the right and there is still some atelectatic changes and infiltration of the left lung base. The bronchoscopy and the lavage of the left lung was done. Cultures still pending. Urine cultures positive for gram- negative bacillus and the patient is still on a combination of Levaquin and clindamycin. The patient is also on Diflucan due to extensive oropharyngeal candidiasis was noted at a time of intubation. The patient was started on enteral feeding for nutritional support. She is currently receiving vitamin 1.2 at the rate of 20 mL an hour. IV fluids in the form of half-normal saline at the rate of 45 mL an hour. The patient has a white cell count of 17.7, hemoglobin is at 12.7, d-dimer is at 0.8, sodium is at 142, BUN is at 27 with a creatinine of 0.6. LDH level is 1009 and the CRP level is 25. Note that the LDH is lower compared to yesterday. No pressors for now. Urine output is adequate. No fever. No other significant events overnight. Patient was reevaluated today on 09/14/2021, patient remains intubated and mechanically ventilated, she is on assist control rate of 32, tidal volume of 300 FiO2 50%, PEEP 18. ABG showed a pO2 of 95 pCO2 of 82 pH of 7.25. Tidal volume was increased to 325, and PEEP was cut down to 14. Patient remains on propofol at 50 minute, Nimbex at 2 mcg/kg/m. IV fluid is 0.45 at 50 mL per ayah r, and 0.9 normal saline at 20 mL per hour. Patient is on enteral feeding, she is receiving vital 1.4 at 34/34. Patient has a right femoral triple-lumen catheter, right femoral arterial line, I was told that the patient has a large area of decubitus ulcer on her coccyx, hence I recommended consultation to 1 services. Antibiotics martinez she is on clindamycin, fluconazole, and she is also on Levaquin. Patient remains sedated and paralyzed, and I could not assess her mental status. WBC count is 17.4 hemoglobin 11.3, d-dimer is 0.91. Basic metabolic profile is normal renal profile is normal liver enzymes are borderline elevated LDH is 797 C-reactive protein is 23.2. Reevaluated today on 09/15/2021, patient is basically about the same, remains intubated and mechanically ventilated. Sedated and paralyzed, however I plan to discontinue Nimbex today. Chest x-ray showed mostly bibasilar airspace disease, patient is on a rate of 32, tidal volume 325 FiO2 50% and PEEP 14. She is still requiring propofol at 15 Nimbex at 2 and she is on feeding using vital 1.2 at 31 mL per hour. Her LDH today is down to 891 from 1509 and her C-reactive protein is down to 19 from 25 recently. Ventilatory-martinez I cut down her repeat to 10 from 14, Her on 50% for now. Her WBC count today is 11.3 hemoglobin is 10.0. ABG showed a pO2 of 93 pCO2 75 pH of 7.33 electrolytes are normal bicarb is 38 BUN is 53 creatinine 0.87. Overall the patient seems to be ventilating better, now that the PEEP is down to 10, I would discontinue Nimbex, and hopefully the patient could be maintained only on propofol and maybe adding fentanyl if needed. In the next 24 hours, I'm hoping that I could start addressing weaning constipation or at least weaning trials on a weaning mode of mechanical ventilation. Likely pressure support and CPAP if tolerated. Patient was reevaluated today on 09/16/21, remains in the ICU, intubated and mechanically ventilated. Patient is now off Nimbex, and she is on relatively low dose of propofol, which I plan to discontinue and address mental status, her Nimbex has been off for the last 24 hours, and propofol was discontinued earlier today, however so far the patient is not responding to any stimuli. She opens eyes only with deep painful stimuli. She is being followed by neurology. Patient is now on assist control rate of 32 tidal volume 325 FiO2 50% and PEEP is 10. I am keeping her FiO2 at 50% but I'm cutting down the PEEP down to 8. And I'm continuing to hold sedation. Her ABG today showed a pO2 of 96 pCO2 56 pH of 7.45. Her labs are basically unremarkable. CBC is relatively normal except for hemoglobin of 9.4. Sodium is normal at 140. Bicarb is 38. Renal profile is normal. And calcium is 7.2. Chest x-ray is showing left lower lobe pneumonia/atelectasis. Patient was seen by neurology today, still believe that the patient has toxic metabolic encephalopathy, post ictal state, and breakthrough seizures however the recommendation is to continue to hold sedation and if no improvement off sedation but later today, may consider CT of the brain. Patient was reevaluated today on 09/17/21, she remains in the ICU, intubated and mechanically ventilated. Patient is on assist control rate of 32 tidal volume of 325 FiO2 50% PEEP of 8. ABG showed a pO2 of 97 pCO2 49 pH of 7.42. Last night, the patient was completely off sedation, she became extremely agitated, restless, not making any purposeful movements, patient was not synchronous with the ventilator, and she was difficult to ventilate, hence the patient was given 1 dose of Nimbex, and placed back on propofol at 50 mcg/kg/m, it was increased even to as high as 75, patient remains asynchronous, and then Nimbex was given. Today the patient is off propofol, she is not waking up yet, patient is fully ventilated, and she is not arousable even to deep painful stimuli. She is not requiring any pressors, I have a feeling that I could potentially wean this patient if she wakes up, and she becomes unresponsive and appropriate. But that is yet to be determined, today I recommended that we start the patient on Precedex and discontinue propofol altogether. We will keep the patient on the present vent settings, we'll continue Precedex, and if she wakes up, we will could potentially wean and decide whether the patient could even be extubated. May see count today is 8.7 hemoglobin is 9.8. Electrodes are normal renal profile is normal. Reevaluated today on 09/18/21, patient remains in the ICU, intubated and mechanically ventilated. Patient is not making any significant neurological im provement. She has been off sedation for few days, yesterday we started the patient only on Precedex, and that's mostly to keep her synchronous with the ventilator. Again her mental status is basically about the same, and she is not showing much improvement. She opens eyes slightly to deep painful stimuli, but no purposeful movement and no responses to verbal stimuli. She is on assist control rate of 32 tidal volume 325 FiO2 was 50% and PEEP was 8 however I cut down her FiO2 to 45%. Patient is receiving enteral feeding, vital AF at 34 mL per hour. ABG today showed a pO2 of 107 pCO2 44 pH of 7.46. Basic metabolic profile is normal WBC count is 7.6 hemoglobin is 9.5. No significant metabolic abnormality to explain her encephalopathy at this point. Patient is still being followed by neurology on the case. Patient is still being treated for coronary virus infection, and UTI on admission secondary to E. coli. 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 No acute process was noted. Patient remains on seizure medications as per neurology including Keppra and Tegretol. EEG showed slowing/moderate degree of slowing suggestive of generalized cerebral dysfunction. This is seen with toxic metabolic encephalopathy. Objective - Vital Signs Vital signs: Vital Signs Temp 101.1 F H 09/18/21 08:00 Pulse 107 H 09/18/21 10:00 Resp 31 H 09/18/21 10:00 BP 128/83 09/18/21 10:00 Pulse Ox 96 09/18/21 10:00 Intake & Output 09/17/21 09/18/21 09/18/21 18:59 06:59 18:59 Intake Total 5297.961 0508.317 598 Output Total 1350 1490 500 Balance 138.377 -204.683 98 Weight 64 kg 64 kg Intake: IV 733 636 262 Clindamycin 600 mg In 150 50 Dextrose 5% in Water 50 ml @ 50 mls/hr IVPB Q8H [facility] Rx#:[id number] Pressure bag 33 36 12 Sodium Chloride 0.45% 1, 550 600 200 000 ml @ 50 mls/hr IV . Q20H [facility] Rx#:[id number] Intake, IV Titration 381.377 151.317 200 Amount Aztreonam 2 gm In Sodium 200 100 Chloride 0.9% 100 ml @ 33 .3 mls/hr IVPB Q8HR [facility] Rx#:[id number] Dexmedetomidine/0.9% NaCl 4.26 151.317 (Pmx) 400 mcg In Empty Bag 1 bag @ 0.2 MCG/KG/HR 3.195 mls/hr IV .Q24H [facility] Rx#:[id number] Levofloxacin 500Mg-D5w 100 100 Pmx 500 mg In Dextrose/ Water 1 100ml.bag @ 100 mls/hr IVPB Q24H [facility] Rx#: [id number] propofoL 1,000 mg In 77.117 Empty Bag 1 bag @ Titrate IV .Q0M [facility] Rx#: [id number] Tube Feeding 374 408 136 Other 90 Output: Urine 1350 1490 500 Other: Voiding Method Indwelling Catheter Indwelling Catheter Indwelling Catheter # Bowel Movements 1 ABP, PAP, CO, CI - Last Documented Arterial Blood Pressure 139/72 - Exam -GENERAL: Revealed a 51-year-old female mechanically ventilated, off all sedatives except she is on Precedex. Unresponsive to any stimuli except opening eyes slightly with deep painful stimuli. HEENT: Adelita, nonicteric, no neck masses, no JVD, endotracheal tube and orogastric tube are intact. CARDIOVASCULAR: S1 and S2 present. No murmurs, rubs, or gallops. PULMONARY: Symmetrical chest expansion crackles at the bases. ABDOMEN: Soft nontender no megaly no rebound no guarding. MUSCULOSKELETAL: No joint swelling or deformity. EXTREMITIES: No cyanosis, clubbing, or pedal edema. NEUROLOGICAL: Unresponsive to any deep painful stimuli. Except the open eyes at times SKIN: large coccygeal ulcer - Labs CBC & Chem 7: 09/18/21 05:02 09/18/21 05:02 Labs: Abnormal Lab Results - Last 24 Hours (Table) 09/17/21 09/17/21 09/18/21 Range/Units 04:20 18:03 00:12 RBC (3.80-5.40) m/uL Hgb (11.4-16.0) gm/dL Hct (34.0-46.0) % MCV (80.0-100.0) fL ABG pH (7.35-7.45) ABG HCO3 (21-25) mmol/L ABG Total CO2 (19-24) mmol/L Carbon Dioxide (22-30) mmol/L BUN (7-17) mg/dL Glucose (74-99) mg/dL POC Glucose (mg/dL) 143 H 123 H (75-99) mg/dL Calcium (8.4-10.2) mg/dL Procalcitonin 0.20 H (0.02-0.09) ng/mL 09/18/21 09/18/21 09/18/21 Range/Units 04:58 05:02 05:02 RBC 2.95 L (3.80-5.40) m/uL Hgb 9.5 L (11.4-16.0) gm/dL Hct 29.5 L (34.0-46.0) % MCV 100.2 H (80.0-100.0) fL ABG pH 7.46 H (7.35-7.45) ABG HCO3 31 H (21-25) mmol/L ABG Total CO2 32 H (19-24) mmol/L Carbon Dioxide 32 H (22-30) mmol/L BUN 34 H (7-17) mg/dL Glucose 143 H (74-99) mg/dL POC Glucose (mg/dL) (75-99) mg/dL Calcium 7.7 L (8.4-10.2) mg/dL Procalcitonin (0.02-0.09) ng/mL 09/18/21 Range/Units 11:40 RBC (3.80-5.40) m/uL Hgb (11.4-16.0) gm/dL Hct (34.0-46.0) % MCV (80.0-100.0) fL ABG pH (7.35-7.45) ABG HCO3 (21-25) mmol/L ABG Total CO2 (19-24) mmol/L Carbon Dioxide (22-30) mmol/L BUN (7-17) mg/dL Glucose (74-99) mg/dL POC Glucose (mg/dL) 199 H (75-99) mg/dL Calcium (8.4-10.2) mg/dL Procalcitonin (0.02-0.09) ng/mL Microbiology - Last 24 Hours (Table) 09/17/21 23:51 Sputum Culture - Preliminary Sputum 09/16/21 21:25 Blood Culture - Preliminary Blood No Growth after 24 hours Assessment and Plan Assessment: Impression: Acute hypoxic respiratory failure secondary to COVID-19 pneumonia Altered mental status, acute toxic metabolic encephalopathy. No acute CVA noted on brain CT. Acute COVID-19 pneumonia Acute intravascular depletion with dehydration and electrolyte imbalance on her initial presentation. History of seizure activity. Remains on seizure medications including Keppra and Tegretol. Previous history of pulmonary embolism, on long-term treatment with Eliquis. Paroxysmal atrial fibrillation Cardiomyopathy and LV dysfunction with ejection fraction of 30-35%. History of pacemaker implantation. 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 coli urinary tract infection History of psoriasis Sacral /coccygeal decubitus ulcer Recommendation: Continue ventilatory support. Continue to hold sedation, con tinue Precedex Continue on FiO2 at 45% and PEEP at 8 Continue supportive care measures Continue antibiotics, Levaquin and clindamycin Continue Lovenox 40 mg subcu for DVT Continue IV Decadron Continue Keppra And Tegretol. continue to monitor inflammatory markers continue enteral feeding continue to monitor in the ICU Patient is critically ill, On his next week, if no neurological improvement noted, we have to seriously consider tracheostomy and PEG tube placement on this patient, this will be addressed with family. Critical care time is over 30 minutes. Time with Patient: Greater than 30
--- NOTE | 2021-09-18 14:59 | P.PN ---
Subjective Progress Note Date: 09/17/21 Principal diagnosis: Pneumonia pressure ulcer and multiple antibiotic allergies Patient is a 51-year-old female presenting to the hospital on September 10 for mental status changes patient did have a evidence of COVID-19 infection, with respiratory failure requiring intubation also with E. coli UTI and the patient did have multiple antibiotic allergies. On today's evaluation that is 09/17/2021 Patient is afebrile today, the patient is hemodynamically stable not requiring any pressor support patient is slowly being taken off sedation no significant purulent secretion through the ET or diarrhea reported by the nursing staff, no other changes Objective - Vital Signs Vital signs: Vital Signs Temp 98.1 F 09/17/21 08:00 Pulse 106 H 09/17/21 13:00 Resp 35 H 09/17/21 13:00 BP 119/76 09/17/21 13:00 Pulse Ox 99 09/17/21 13:00 Intake & Output 09/16/21 09/17/21 09/17/21 18:59 06:59 18:59 Intake Total 4053.547 0195.827 903.377 Output Total 2024 1585 975 Balance -838.445 -340.173 -71.623 Weight 63.9 kg Intake: IV 636 636 418 Clindamycin 600 mg In 100 Dextrose 5% in Water 50 ml @ 50 mls/hr IVPB Q8H [facility] Rx#:[id number] Pressure bag 36 36 18 Sodium Chloride 0.45% 1, 600 600 300 000 ml @ 50 mls/hr IV . Q20H [facility] Rx#:[id number] Intake, IV Titration 52.555 110.827 281.377 Amount Aztreonam 2 gm In Sodium 100 Chloride 0.9% 100 ml @ 33 .3 mls/hr IVPB Q8HR [facility] Rx#:[id number] Dexmedetomidine/0.9% NaCl 4.26 (Pmx) 400 mcg In Empty Bag 1 bag @ 0.2 MCG/KG/HR 3.195 mls/hr IV .Q24H [facility] Rx#:[id number] Levofloxacin 500Mg-D5w 100 Pmx 500 mg In Dextrose/ Water 1 100ml.bag @ 100 mls/hr IVPB Q24H [facility] Rx#: [id number] propofoL 1,000 mg In 52.555 110.827 77.117 Empty Bag 1 bag @ Titrate IV .Q0M [facility] Rx#: [id number] Tube Feeding 408 408 204 Other 90 90 Output: Urine 2024 1585 975 Other: Voiding Method Indwelling Catheter Indwelling Catheter Indwelling Catheter # Bowel Movements 1 ABP, PAP, CO, CI - Last Documented Arterial Blood Pressure 119/65 - Exam GENERAL DESCRIPTION: Middle-aged male intubated on the vent, no distress. No tachypnea or accessory muscle of respiration use. LUNGS: Unlabored breathing. Decreased breath sound at the base. No wheeze or crackle. HEART: S1, S2, regular rate and rhythm. No loud murmur ABDOMEN: Soft, no tenderness , guarding or rigidity, no organomegaly EXTREMITIES: No edema of feet. - Labs CBC & Chem 7: 09/18/21 05:02 09/18/21 05:02 Labs: Abnormal Lab Results - Last 24 Hours (Table) 09/16/21 09/17/21 09/17/21 Range/Units 17:37 00:14 04:20 RBC (3.80-5.40) m/uL Hgb (11.4-16.0) gm/dL Hct (34.0-46.0) % Lymphocytes # (1.0-4.8) k/uL ABG pH (7.35-7.45) ABG pCO2 (35-45) mmHg ABG HCO3 (21-25) mmol/L ABG Total CO2 (19-24) mmol/L Carbon Dioxide (22-30) mmol/L BUN (7-17) mg/dL Glucose (74-99) mg/dL POC Glucose (mg/dL) 119 H 101 H (75-99) mg/dL Calcium (8.4-10.2) mg/dL C-Reactive Protein 20.0 H (<1.0) mg/dL 09/17/21 09/17/21 09/17/21 Range/Units 04:20 04:20 06:20 RBC 3.04 L (3.80-5.40) m/uL Hgb 9.8 L (11.4-16.0) gm/dL Hct 30.4 L (34.0-46.0) % Lymphocytes # 0.9 L (1.0-4.8) k/uL ABG pH 7.47 H (7.35-7.45) ABG pCO2 49 H (35-45) mmHg ABG HCO3 36 H (21-25) mmol/L ABG Total CO2 37 H (19-24) mmol/L Carbon Dioxide 35 H (22-30) mmol/L BUN 26 H (7-17) mg/dL Glucose 128 H (74-99) mg/dL POC Glucose (mg/dL) (75-99) mg/dL Calcium 7.9 L (8.4-10.2) mg/dL C-Reactive Protein (<1.0) mg/dL 09/17/21 09/17/21 Range/Units 06:30 11:45 RBC (3.80-5.40) m/uL Hgb (11.4-16.0) gm/dL Hct (34.0-46.0) % Lymphocytes # (1.0-4.8) k/uL ABG pH (7.35-7.45) ABG pCO2 (35-45) mmHg ABG HCO3 (21-25) mmol/L ABG Total CO2 (19-24) mmol/L Carbon Dioxide (22-30) mmol/L BUN (7-17) mg/dL Glucose (74-99) mg/dL POC Glucose (mg/dL) 123 H 154 H (75-99) mg/dL Calcium (8.4-10.2) mg/dL C-Reactive Protein (<1.0) mg/dL Microbiology - Last 24 Hours (Table) 09/10/21 12:45 Blood Culture - Final Blood No Growth after 144 hours 09/10/21 13:03 Blood Culture - Final Blood No Growth after 144 hours Assessment and Plan Assessment: 1-Patient with acute respiratory failure which is multifactorial in this patient who did have a covid19 pneumonia and a concern for possible secondary bacterial patient With a new fever blood and sputum cultures will be requested which are currently pending, the patient will continue with Azactam 2 g every 8 hours wh ile waiting for the cultures to be finalized and monitor clinical course closely 2patient with a deep tissue injury to the sacral and upper back area no cellulitis, keep the area dry and of the pressure Time with Patient: Less than 30
--- NOTE | 2021-09-18 15:01 | P.PN ---
Subjective Progress Note Date: 09/18/21 Principal diagnosis: Pneumonia pressure ulcer and multiple antibiotic allergies Patient is a 51-year-old female presenting to the hospital on September 10 for mental status changes patient did have a evidence of COVID-19 infection, with respiratory failure requiring intubation also with E. coli UTI and the patient did have multiple antibiotic allergies. On today's evaluation that is 09/18/2021, patient did spike a fever of 101 degrees Fahrenheit this morning patient is afebrile since then, the patient is hemodynamically stable not on any pressor support, FiO2 is currently 45%, no significant purulent secretions from the ET or diarrhea reported by the nursing staff Objective - Vital Signs Vital signs: Vital Signs Temp 99.6 F 09/18/21 12:00 Pulse 105 H 09/18/21 12:00 Resp 28 H 09/18/21 12:00 BP 116/75 09/18/21 12:00 Pulse Ox 96 09/18/21 12:00 Intake & Output 09/17/21 09/18/21 09/18/21 18:59 06:59 18:59 Intake Total 6760.040 2151.317 864.819 Output Total 1350 1490 850 Balance 138.377 -204.683 14.819 Weight 64 kg 64 kg Intake: IV 733 636 368 Clindamycin 600 mg In 150 50 Dextrose 5% in Water 50 ml @ 50 mls/hr IVPB Q8H [facility] Rx#:[id number] Pressure bag 33 36 18 Sodium Chloride 0.45% 1, 550 600 300 000 ml @ 50 mls/hr IV . Q20H [facility] Rx#:[id number] Intake, IV Titration 381.377 151.317 292.819 Amount Aztreonam 2 gm In Sodium 200 100 Chloride 0.9% 100 ml @ 33 .3 mls/hr IVPB Q8HR [facility] Rx#:[id number] Dexmedetomidine/0.9% NaCl 4.26 151.317 92.819 (Pmx) 400 mcg In Empty Bag 1 bag @ 0.2 MCG/KG/HR 3.195 mls/hr IV .Q24H [facility] Rx#:[id number] Levofloxacin 500Mg-D5w 100 100 Pmx 500 mg In Dextrose/ Water 1 100ml.bag @ 100 mls/hr IVPB Q24H [facility] Rx#: [id number] propofoL 1,000 mg In 77.117 Empty Bag 1 bag @ Titrate IV .Q0M [facility] Rx#: [id number] Tube Feeding 374 408 204 Other 90 Output: Urine 1350 1490 850 Other: Voiding Method Indwelling Catheter Indwelling Catheter Indwelling Catheter # Bowel Movements 1 ABP, PAP, CO, CI - Last Documented Arterial Blood Pressure 123/67 - Exam GENERAL DESCRIPTION: Middle-aged male intubated on the vent, no distress. No tachypnea or accessory muscle of respiration use. LUNGS: Unlabored breathing. Decreased breath sound at the base. No wheeze or crackle. HEART: S1, S2, regular rate and rhythm. No loud murmur ABDOMEN: Soft, no tenderness , guarding or rigidity, no organomegaly EXTREMITIES: No edema of feet. - Labs CBC & Chem 7: 09/18/21 05:02 09/18/21 05:02 Labs: Abnormal Lab Results - Last 24 Hours (Table) 09/17/21 09/17/21 09/18/21 Range/Units 04:20 18:03 00:12 RBC (3.80-5.40) m/uL Hgb (11.4-16.0) gm/dL Hct (34.0-46.0) % MCV (80.0-100.0) fL ABG pH (7.35-7.45) ABG HCO3 (21-25) mmol/L ABG Total CO2 (19-24) mmol/L Carbon Dioxide (22-30) mmol/L BUN (7-17) mg/dL Glucose (74-99) mg/dL POC Glucose (mg/dL) 143 H 123 H (75-99) mg/dL Calcium (8.4-10.2) mg/dL Procalcitonin 0.20 H (0.02-0.09) ng/mL 09/18/21 09/18/21 09/18/21 Range/Units 04:58 05:02 05:02 RBC 2.95 L (3.80-5.40) m/uL Hgb 9.5 L (11.4-16.0) gm/dL Hct 29.5 L (34.0-46.0) % MCV 100.2 H (80.0-100.0) fL ABG pH 7.46 H (7.35-7.45) ABG HCO3 31 H (21-25) mmol/L ABG Total CO2 32 H (19-24) mmol/L Carbon Dioxide 32 H (22-30) mmol/L BUN 34 H (7-17) mg/dL Glucose 143 H (74-99) mg/dL POC Glucose (mg/dL) (75-99) mg/dL Calcium 7.7 L (8.4-10.2) mg/dL Procalcitonin (0.02-0.09) ng/mL 09/18/21 Range/Units 11:40 RBC (3.80-5.40) m/uL Hgb (11.4-16.0) gm/dL Hct (34.0-46.0) % MCV (80.0-100.0) fL ABG pH (7.35-7.45) ABG HCO3 (21-25) mmol/L ABG Total CO2 (19-24) mmol/L Carbon Dioxide (22-30) mmol/L BUN (7-17) mg/dL Glucose (74-99) mg/dL POC Glucose (mg/dL) 199 H (75-99) mg/dL Calcium (8.4-10.2) mg/dL Procalcitonin (0.02-0.09) ng/mL Microbiology - Last 24 Hours (Table) 09/17/21 23:51 Sputum Culture - Preliminary Sputum 09/16/21 21:25 Blood Culture - Preliminary Blood No Growth after 24 hours Assessment and Plan Assessment: 1-Patient with acute respiratory failure which is multifactorial in this patient who did have a covid19 pneumonia and a concern for possible secondary bacterial pneumonia patient With a new fever blood and sputum cultures has been obtained which are currently pending, the patient will continue with Azactam 2 g every 8 hours while waiting for the cultures to be finalized and continue supportive care 2patient with a deep tissue injury to the sacral and upper back area no cellulitis, keep the area dry and of the pressure Time with Patient: Less than 30
--- NOTE | 2021-09-18 15:31 | P.PN ---
Subjective Progress Note Date: 09/18/21 This is a pleasant 51 years old female with past medical history of Coronary Artery Disease, Heart Failure, CVA/TIA, Pulmonary Embolus (PE), Seizure Disorder, Last seizure 2009, CVA 2007 with L sided weakness arm and leg and has L foot drop, TIA 2018, cardiomyopathy, R PE and pneumothorax/pneumonia following leg fracture in 1994, gestational diabetes with all pregnancies , bilateral glaucoma with surgery, psoriasis in the past, UTIs. She is a status post Pacemaker, history of Bilateral eye surgery for glaucoma, Anxiety, Depression, Current every day smoker Patient presents because of altered mental status. Information was limited from the patient. It was obtained from the chart and medical staff. Also as per family patient was able to go to the bathroom, was more lethargic and tired over the last day. While in the emergency room focal mild seizure is noticed On admission patient had and fever of 101. She is tachypneic at 26-40, tachycardic 110-140, also she is hypoxic saturating 72% on room air Labs showing WBC of 10.5, hemoglobin of 16.3, platelet count of 197. INR 1.7. Sodium 164, creatinine 1.7, lactic acid elevated 4.6. Liver enzymes elevated with AST 202 and ALT 81. Bilirubin is normal at 1.3. Urine analysis is highly suspicious of infection Urine drug screen is negative Cash versus positive Chest x-ray showing left perihilar and left lower lobe area of infiltrate and small effusion correlates for pneumonia CT of the brain without contrast showing no intracranial hemorrhage, evidence of remote ischemic change. However there is vague low attenuation near the left thalamus and left cerebral peduncle. Acute ischemia in the differential diagnosis. Recommend stat MRI of brain with MRSA [place] as clinically warranted. In the emergency room patient was started on aztreonam and IV vancomycin, Keppra and heparin drip 09/11/2021 Patient today was still in the ICU, she was very weak and obtunded, she will wake up to certain stabilized and moans, she does not follow commands she cannot, gait she moved both extremities symmetrically. R on she had collapse of her left lung cancer and she has to be intubated and repeat chest x-ray showing better. A of the left lung. She is tachypneic with a breathing rate 22, no more fever since yesterday. Her sodium improved down to 144 and she was started on normal saline, creatinine 1.1, Ejection fraction showed 30-35% which is slice worsened from 06/2021 where it was 35-40% She remains on dexamethasone, IV vancomycin and clindamycin, heparin drip, Keppra and normal saline at 75 mL/h 09/12/2021 Patient with respiratory failures and she was intubated and placed on mechanical ventilation with pulmonary/critical care team following her mostly. There is no more seizure-like activity noticed. She still tachypneic with a breathing rate of 32 blood pressure 100/70, she is needing FiO2 of 80% and PEEP of 20. She has no more fevers since admission. Urine culture is growing gram-negative bacilli. Sodium is 146, WBCs is increased at 16.5 K. PH showing acidosis with 7.1 and elevated pCO2 at 83. Chest x-ray showing left sided opacities with near full. A of the left lung. Patient kept on antibiotics in the form of clindamycin and Levaquin and fluconazole. Also she remains on dexamethasone, and so a heparin to Lovenox. Also continued on seizure medication 1500 mg twice a day and IV fluids per pulmonary team. Neurology team on the case 09/13/2021 Patient remains intubated and sedated with pulmonary/critical care team following her closely. Her PEEP is lower today to 18. She remains on FiO2 of 50%. She is tachypneic at 32 about blood pressure is controlled. Her inflammatory markers are increased to LDH of 1009 and CRP of 25.1. Bicarb is elevated at 31 WBC is 17.7, sodium improved to 142. Creatinine improved to 0.6. Chest x-ray showed improving left lung infiltrate. PH is improved slightly 7.2 with pCO2 is slightly better at 79. Urine culture is growing E. coli which is sensitive to the antibiotics. Currently patient is covered with clindamycin, Levaquin and fluconazole. Also she is on dexamethasone 6 mg, Keppra 1500 mg and half-normal saline at 50 mL per hour Anticoagulation switch from heparin drip and to Lovenox 09/14/2021 Patient still intubated and sedated on mechanical ventilation with pulmonary/critical care team following her closely and just her vent setting. Today her FiO2 of 55%, and she is tachypneic at 33 breath per minute. Labs showing stable findings with sodium 141, creatinine 0.8, liver enzymes slightly elevated, LDH slightly down at 797 and CRP 2-3.2. Same leukocytosis at 14.7. Her pH is 7.2 and carbon dioxide is 82. D-dimer mildly elevated at 0.9, just x-ray showing bilateral infiltrate with no significant change from prior. She remains on the same antibiotic of clindamycin, Levaquin, dexamethasone, Keppra 1500 mg and half normal saline at 50 mL/h 09/15/2021 Patient in the ICU intubated and sedated, with pulmonary/critical care team following closely. FiO2 still 50%, hemodynamically showing both staple blood pressure 101/40, patient is tachypneic more than 30 per minutes. PEEP is lower. wbc of 11.3, hemoglobin 9.4, sodium 140, creatinine 0.8. chest x-ray: mild worsening infiltrate in the left lobe. patient continued with the same treatment of clindamycin, levaquin, dexamethasone, keppra and she received 1 l of normal saline today. 09/16/2021 Patient is seen and evaluated and follow-up continues to be closely monitored in the ICU. Multiple medical consultations following including infectious disease, pulmonary pulmonary disease specialist, and neurology. Patient continues on mechanical vent with an FiO2 of 50% and PEEP is 10. Weaning is being continued and PEEP is being titrated down to 8. Patient continues with sedation holidays and very minimal propofol and patient is now off Nimbex and very minimal stimulus noted. Patient response to painful stimulus minimally. Plan is for possible CT of the brain repeat this afternoon. Patient also being closely monitored for continued seizures of which she does have a past medical history of. Patient is also Covid positive and infectious disease is following and patient is maintained on clindamycin along with Levaquin. Chest x-ray today shows correlate for left lower lobe pneumonia versus atelectasis with possible associated effusion. 09/17/2021 Patient is seen in follow-up this morning closely monitored in the ICU. Neurology also following and patient is maintained on IV Keppra. Patient also continues on IV antibiotics in the form of aztreonam and clindamycin with infectious disease following. Patient urine culture showing E. coli. Chest x- ray today shows chronic emphysematous changes with left basilar acute infiltrate and/or atelectasis and likely small left pleural effusion all redemonstrated with no significant change from previous day. Neurology following And okay to resume anticoagulant as there is no evidence of new intracranial process or hemorrhage. Patient is off sedation and continues to be unresponsive. 09/18/2021 Patient is evaluated again this morning and continues to be in the ICU on mechanical vent and being closely monitored. FiO2 is at 45% and PEEP is 8. Patient continues to be off sedation with no response for over 24 hours. Neurology following as well and have discussed overall prognosis with family and family discussing with other family members about CODE STATUS and treatment plan moving forward. Infectious disease also following and patient is maintained on IV Levaquin along with clindamycin and aztreonam and will continue. Urine cultures finalized showing E. coli and sputum culture preliminary is pending at this time. Review of systems: Unable to obtain as patient continues to be on mechanical ventilation and sedated Labs: WBC is 7.6, hemoglobin is 9.5, platelets are 190, sodium 138, potassium 3.8, BUN 34, creatinine 0.76, calcium 7.7 Active Medications Amiodarone HCl (Amiodarone 200 Mg Tab) 200 mg PO DAILY [facility] Last Admin: 09/18/21 08:01 Dose: 200 mg Documented by: Artificial Tears (Artificial Tears-Hypromellose Drops 15 Ml Btl) 1 drops BOTH EYES QID PRN PRN Reason: Dry Eye(s) Last Admin: 09/16/21 08:58 Dose: 1 drops Documented by: Atorvastatin Calcium (Atorvastatin 80 Mg Tab) 80 mg PO HS [facility] Last Admin: 09/17/21 19:37 Dose: 80 mg Documented by: Carbamazepine (Carbamazepine 200 Mg Tab) 200 mg PO TID [facility] Last Admin: 09/18/21 08:01 Dose: 200 mg Documented by: Chlorhexidine Gluconate (Chlorhexidine Gluconate 15 Ml Cup) 15 ml MUCOUS MEM BID [facility] Last Admin: 09/18/21 08:01 Dose: 15 ml Documented by: Cholecalciferol (Cholecalciferol 125 Mcg (5000 Iu) Tablet) 125 mcg PO DAILY [facility] Last Admin: 09/18/21 08:01 Dose: 125 mcg Documented by: Dexamethasone Sodium Phosphate (Dexamethasone Sod Phosphate 10 Mg/Ml 1 Ml Vial) 6 mg IVP DAILY [facility] Last Admin: 09/18/21 08:01 Dose: 6 mg Documented by: Enoxaparin Sodium (Enoxaparin 40 Mg/0.4 Ml Syringe) 40 mg SQ DAILY [facility] Last Admin: 09/18/21 08:00 Dose: 40 mg Documented by: Clindamycin Phosphate 600 mg/ (Dextrose/Water) 54 mls @ 50 mls/hr IVPB Q8H [facility] Last Admin: 09/18/21 08:00 Dose: 50 mls/hr Documented by: Norepinephrine Bitartrate 32 (mg/ Sodium Chloride) 250 mls @ 1.383 mls/hr IV .Q24H [facility]; Protocol Last Admin: 09/17/21 19:35 Dose: Not Given Documented by: Cisatracurium Besylate 200 mg/ (Sodium Chloride) 200 mls @ 3.54 mls/hr IV .Q24H [facility]; Protocol Last Admin: 09/17/21 19:34 Dose: Not Given Documented by: Levetiracetam 1,500 mg/ IV (Solution) 100 mls @ 400 mls/hr IVPB Q12HR [facility] Last Admin: 09/18/21 08:01 Dose: 400 mls/hr Documented by: Sodium Chloride (Saline 0.45%) 1,000 mls @ 50 mls/hr IV .Q20H [facility] Last Admin: 09/18/21 04:05 Dose: 50 mls/hr Documented by: Levofloxacin 500 mg/ IV (Solution) 100 mls @ 100 mls/hr IVPB Q24H [facility] Last Admin: 09/18/21 08:02 Dose: 100 mls/hr Documented by: Propofol 1,000 mg/ IV Solution 100 mls @ 0 mls/hr IV .Q0M [facility]; Protocol Last Titration: 09/17/21 10:51 Dose: 0 mcg/kg/min, 0 mls/hr Documented by: Aztreonam 2 gm/ Sodium (Chloride) 100 mls @ 33.3 mls/hr IVPB Q8HR [facility]; Protocol Last Admin: 09/18/21 08:00 Dose: 33.3 mls/hr Documented by: Dexmedetomidine HCl 400 mcg/ (IV Solution) 100 mls @ 3.195 mls/hr IV .Q24H [facility]; Protocol Last Admin: 09/18/21 12:14 Dose: 0.7 mcg/kg/hr, 11.183 mls/hr Documented by: Insulin Aspart (Insulin Aspart (Novolog) 100 Unit/Ml Vial) 0 unit SQ Q6H [facility]; Protocol Last Admin: 09/18/21 12:06 Dose: 2 unit Documented by: Miscellaneous Information (Potassium Replacement Protocol 1 Each Misc) 1 each MISCELLANE DAILY PRN; Protocol PRN Reason: Per Protocol Naloxone HCl (Naloxone 0.4 Mg/Ml 1 Ml Vial) 0.2 mg IV Q2M PRN PRN Reason: Opioid Reversal Pantoprazole Sodium (Pantoprazole 40 Mg/10 Ml Vial) 40 mg IV DAILY [facility] Last Admin: 09/18/21 08:00 Dose: 40 mg Documented by: Physical exam: GENERAL: The patient is intubated and sedated, FiO2 is 45% and PEEP is 8 HEENT: Pupils are round and equally reacting to light. EOMI. No scleral icterus. No conjunctival pallor. Normocephalic, atraumatic. No pharyngeal erythema. No thyromegaly. CARDIOVASCULAR: S1 and S2 present. No murmurs, rubs, or gallops. PULMONARY: Chest is clear to auscultation, no wheezing or crackles. ABDOMEN: Soft, nontender, nondistended, normoactive bowel sounds. No palpable organomegaly. MUSCULOSKELETAL: No joint swelling or deformity. EXTREMITIES: No cyanosis, clubbing, or pedal edema. NEUROLOGICAL: Gross neurological examination did not reveal any focal deficits. SKIN: No rashes. no petechiae. Assessment: Altered mental status could be metabolic/toxic encephalopathy, ruled out other intracranial lesions, and possibly secondary to seizure Left lower lobe pneumonia, rule out aspiration pneumonia Acute urinary tract infection, present on admission with culture showing E. coli Sepsis secondary to UTI and pneumonia Breakthrough seizure Bilateral Covid pneumonia Acute hypoxic respiratory failure secondary to COVID-19 pneumonia Increased inflammatory markers elevated troponin, most likely type II ischemia. Rule out primary cardiac caus es Cardiomyopathy with most recent EF of 30-35% Hypernatremia, improving Acute kidney injury, improved Mild elevated liver enzymes History of coronary artery disease History of pulmonary embolism History of seizure disorder, last seizure was in 2009 as per documents History 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 left foot drop History of glaucoma status post surgery Status post permanent pacemaker Nicotine dependence GI prophylaxis DVT prophylaxis Full code Plan: This is a pleasant 51 years old female who presents with altered mental status, pneumonia, UTI, possible stroke although most likely old infarcts noted on CT, seizure and positive for covid pneumonia Continue with Keppra and neurology following and patient has been off sedation and continues to be unresponsive. CT of the brain shows old right hemisphere infarct without change old left posterior frontal lobe cortical infarct without change and no acute abnormality. pulmonary and infectious disease following, continue the broad-spectrum antibiotics with fluconazole. Urine Cultures grown sensitive E. coli which is covered With aztreonam and clindamycin Continue with dexamethasone, vitamin and zinc supplements along with Lovenox Cardiology team evaluated the patient for elevated troponin, patient does not have A. fib per solution spec Family aware of overall prognosis and would like to discuss further with other family members about CODE STATUS and patient is continued is full code for now. Overall Prognosis remains poor and extremely guarded Objective - Vital Signs Vital signs: Vital Signs Temp 99.1 F 09/18/21 04:00 Pulse 105 H 09/18/21 07:00 Resp 27 H 09/18/21 07:00 BP 112/70 09/18/21 07:00 Pulse Ox 96 09/18/21 07:00 Intake & Output 09/17/21 09/18/21 09/18/21 18:59 06:59 18:59 Intake Total 7355.387 1254.317 87 Output Total 1350 1490 150 Balance 138.377 -204.683 -63 Weight 64 kg Intake: IV 733 636 53 Clindamycin 600 mg In 150 Dextrose 5% in Water 50 ml @ 50 mls/hr IVPB Q8H [facility] Rx#:[id number] Pressure bag 33 36 3 Sodium Chloride 0.45% 1, 550 600 50 000 ml @ 50 mls/hr IV . Q20H [facility] Rx#:[id number] Intake, IV Titration 381.377 151.317 Amount Aztreonam 2 gm In Sodium 200 Chloride 0.9% 100 ml @ 33 .3 mls/hr IVPB Q8HR [facility] Rx#:[id number] Dexmedetomidine/0.9% NaCl 4.26 151.317 (Pmx) 400 mcg In Empty Bag 1 bag @ 0.2 MCG/KG/HR 3.195 mls/hr IV .Q24H [facility] Rx#:[id number] Levofloxacin 500Mg-D5w 100 Pmx 500 mg In Dextrose/ Water 1 100ml.bag @ 100 mls/hr IVPB Q24H [facility] Rx#: [id number] propofoL 1,000 mg In 77.117 Empty Bag 1 bag @ Titrate IV .Q0M [facility] Rx#: [id number] Tube Feeding 374 408 34 Other 90 Output: Urine 1350 1490 150 Other: Voiding Method Indwelling Catheter Indwelling Catheter # Bowel Movements 1 ABP, PAP, CO, CI - Last Documented Arterial Blood Pressure 135/63 - Labs CBC & Chem 7: 09/18/21 05:02 09/18/21 05:02 Labs: Abnormal Lab Results - Last 24 Hours (Table) 09/17/21 09/17/21 09/17/21 Range/Units 06:30 11:45 18:03 RBC (3.80-5.40) m/uL Hgb (11.4-16.0) gm/dL Hct (34.0-46.0) % MCV (80.0-100.0) fL ABG pH (7.35-7.45) ABG HCO3 (21-25) mmol/L ABG Total CO2 (19-24) mmol/L Carbon Dioxide (22-30) mmol/L BUN (7-17) mg/dL Glucose (74-99) mg/dL POC Glucose (mg/dL) 123 H 154 H 143 H (75-99) mg/dL Calcium (8.4-10.2) mg/dL 09/18/21 09/18/21 09/18/21 Range/Units 00:12 04:58 05:02 RBC 2.95 L (3.80-5.40) m/uL Hgb 9.5 L (11.4-16.0) gm/dL Hct 29.5 L (34.0-46.0) % MCV 100.2 H (80.0-100.0) fL ABG pH 7.46 H (7.35-7.45) ABG HCO3 31 H (21-25) mmol/L ABG Total CO2 32 H (19-24) mmol/L Carbon Dioxide (22-30) mmol/L BUN (7-17) mg/dL Glucose (74-99) mg/dL POC Glucose (mg/dL) 123 H (75-99) mg/dL Calcium (8.4-10.2) mg/dL 09/18/21 Range/Units 05:02 RBC (3.80-5.40) m/uL Hgb (11.4-16.0) gm/dL Hct (34.0-46.0) % MCV (80.0-100.0) fL ABG pH (7.35-7.45) ABG HCO3 (21-25) mmol/L ABG Total CO2 (19-24) mmol/L Carbon Dioxide 32 H (22-30) mmol/L BUN 34 H (7-17) mg/dL Glucose 143 H (74-99) mg/dL POC Glucose (mg/dL) (75-99) mg/dL Calcium 7.7 L (8.4-10.2) mg/dL Microbiology - Last 24 Hours (Table) 09/16/21 21:25 Blood Culture - Preliminary Blood No Growth after 24 hours
[2021-09-18 18:04] LABS: Glucose,Whole Blood 115 mg/dL (75-99)
[2021-09-18] MEDS ORDERED: HYDROmorphone 1 MG/ML 1 ML SYRINGE IVP STA (19:02)
[2021-09-18] MEDS ORDERED: CISATRACURIUM 2 MG/ML 5 ML VIAL IV ONE ×2 (19:03→19:26)
[2021-09-18] MEDS: NOREPINEPHRINE 32 MG in SODIUM CHLORIDE 0.9% 218 ML IV SCH (19:33)
[2021-09-18] MEDS: ATORVASTATIN 80 MG TAB PO SCH (19:40)
[2021-09-18] MEDS: CISATRACURIUM 200 MG in SODIUM CHLORIDE 0.9% 180 ML IV SCH (20:59)
[2021-09-18 23:53] LABS: Glucose,Whole Blood 106 mg/dL (75-99)
[2021-09-19] MEDS: AZTREONAM 2 GM in SODIUM CHLORIDE 0.9% 100 ML IVPB SCH ×4 (01:13→23:26)
[2021-09-19] MEDS: SODIUM CHLORIDE 0.45% 1,000 ML IV SCH ×2 (02:15→20:25)
[2021-09-19] MEDS: INSULIN ASPART (NovoLOG) 100 UNIT/ML VIAL SQ SCH ×5 (02:15→23:58)
[2021-09-19 05:08] LABS: ABG Base Excess 7.3 mmol/L; ABG HCO3 32 mmol/L (21-25); ABG Oxygen Saturation 93.6 % (94-97); ABG PCO2 47 mmHg (35-45); ABG PH 7.44 (7.35-7.45); ABG PO2 78 mmHg (83-108); ABG TCO2 33 mmol/L (19-24); Allen Test Performed? Yes
[2021-09-19] MEDS ORDERED: CISATRACURIUM 2 MG/ML 5 ML VIAL IV ONE (05:27)
[2021-09-19 05:44] LABS: Basophils % (A) 0 %; Eosinophils % (A) 0 %; HCT 33.1 % (34.0-46.0); HGB 10.3 gm/dL (11.4-16.0); Lymphocytes % (A) 11 %; MCH 31.1 pg (25.0-35.0); MCV 100.1 fL (80.0-100.0); Macrocytosis Slight; Mean Platelet Volume 10.8; Monocytes # (A) 0.2 k/uL (0-1.0); Monocytes % (A) 2 %; Neutrophils # (A) 7.8 k/uL (1.3-7.7); Neutrophils % (A) 85 %; Platelet Count 214 k/uL (150-450); RBC 3.31 m/uL (3.80-5.40); RDW 14.2 % (11.5-15.5); WBC 9.2 k/uL (3.8-10.6)
[2021-09-19 06:07] LABS: Glucose,Whole Blood 120 mg/dL (75-99)
[2021-09-19 06:38] LABS: ALT 78 U/L (4-34); AST 250 U/L (14-36); African American GFR (CKD) >90 (>60 ml/min/1.73 sqM); Albumin 2.3 g/dL (3.5-5.0); Alkaline Phosphatase 64 U/L (38-126); Anion Gap 4 mmol/L; Blood Urea Nitrogen 33 mg/dL (7-17); Calcium 7.9 mg/dL (8.4-10.2); Carbon Dioxide 30 mmol/L (22-30); Chloride 104 mmol/L (98-107); Glucose 132 mg/dL (74-99); Non-African American GFR(CKD) >90 (>60 ml/min/1.73 sqM); Potassium 3.8 mmol/L (3.5-5.1); Sodium 138 mmol/L (137-145); Total Bilirubin 0.6 mg/dL (0.2-1.3); Total Protein 5.2 g/dL (6.3-8.2)
[2021-09-19] MEDS ORDERED: POTASSIUM BICARBONATE/CIT AC 20 MEQ TABLET.EFF NG-TUBE SCH (07:00)
[2021-09-19] MEDS: AMIODARONE 200 MG TAB PO SCH (09:48)
[2021-09-19] MEDS: levETIRAcetam IV 1,500 MG in SALINE 1 100ML.BAG IVPB SCH ×2 (09:48→20:57)
[2021-09-19] MEDS: CHOLECALCIFEROL 125 MCG (5000 IU) TABLET PO SCH (09:48)
[2021-09-19] MEDS: DEXAMETHASONE SOD PHOSPHATE 10 MG/ML 1 ML VIAL IVP SCH (09:49)
[2021-09-19] MEDS: PANTOPRAZOLE 40 MG/10 ML VIAL IV SCH (09:49)
[2021-09-19] MEDS: carBAMazepine 200 MG TAB PO SCH ×3 (09:49→20:47)
[2021-09-19] MEDS: CHLORHEXIDINE GLUCONATE 15 ML CUP MUCOUS MEM SCH ×2 (09:49→20:46)
[2021-09-19] MEDS: LEVOFLOXACIN 500MG-D5W PMX 500 MG in DEXTROSE/WATER 1 100ML.BAG IVPB SCH (09:49)
[2021-09-19] MEDS: ENOXAPARIN 40 MG/0.4 ML SYRINGE SQ SCH (09:50)
--- NOTE | 2021-09-19 11:19 | XR ---
EXAMINATION TYPE: XR chest 1V portable DATE OF EXAM: 09/19/2021 11:13 AM COMPARISON:Chest radiograph from two days prior. TECHNIQUE: Frontal view of the chest. CLINICAL INDICATION:Female, 51 years old with history of resp failure; FINDINGS: Lungs/Pleura: There are similar left basilar opacities overlying the heart. Improved from prior [facility] er the patient is rotated on today's exam. There is no evidence of pleural effusion, , or pneumothora x. Pulmonary vascularity: Mild pulmonary vascular congestion. Heart/mediastinum: Cardiomediastinal silhouette is unremarkable. Musculoskeletal: No acute osseous pathology. Lines/Tubes: Endotracheal tube with distal tip at the level of the aortic arch Nasogastric tube with its distal tip and side-port projecting under the diaphragm. IMPRESSION: 1. Similar is opacities given patient rotation. 2. Stable support tubes. 3. Mild pulmonary vascular congestion correlate with serum BNP.
--- NOTE | 2021-09-19 11:46 | P.PN ---
Subjective Progress Note Date: 09/19/21 This is a pleasant 51 years old female with past medical history of Coronary Artery Disease, Heart Failure, CVA/TIA, Pulmonary Embolus (PE), Seizure Disorder, Last seizure 2009, CVA 2007 with L sided weakness arm and leg and has L foot drop, TIA 2018, cardiomyopathy, R PE and pneumothorax/pneumonia following leg fracture in 1994, gestational diabetes with all pregnancies , bilateral glaucoma with surgery, psoriasis in the past, UTIs. She is a status post Pacemaker, history of Bilateral eye surgery for glaucoma, Anxiety, Depression, Current every day smoker Patient presents because of altered mental status. Information was limited from the patient. It was obtained from the chart and medical staff. Also as per family patient was able to go to the bathroom, was more lethargic and tired over the last day. While in the emergency room focal mild seizure is noticed On admission patient had and fever of 101. She is tachypneic at 26-40, tachycardic 110-140, also she is hypoxic saturating 72% on room air Labs showing WBC of 10.5, hemoglobin of 16.3, platelet count of 197. INR 1.7. Sodium 164, creatinine 1.7, lactic acid elevated 4.6. Liver enzymes elevated with AST 202 and ALT 81. Bilirubin is normal at 1.3. Urine analysis is highly suspicious of infection Urine drug screen is negative Cash versus positive Chest x-ray showing left perihilar and left lower lobe area of infiltrate and small effusion correlates for pneumonia CT of the brain without contrast showing no intracranial hemorrhage, evidence of remote ischemic change. However there is vague low attenuation near the left thalamus and left cerebral peduncle. Acute ischemia in the differential diagnosis. Recommend stat MRI of brain with MRSA [place] as clinically warranted. In the emergency room patient was started on aztreonam and IV vancomycin, Keppra and heparin drip 09/11/2021 Patient today was still in the ICU, she was very weak and obtunded, she will wake up to certain stabilized and moans, she does not follow commands she cannot, gait she moved both extremities symmetrically. R on she had collapse of her left lung cancer and she has to be intubated and repeat chest x-ray showing better. A of the left lung. She is tachypneic with a breathing rate 22, no more fever since yesterday. Her sodium improved down to 144 and she was started on normal saline, creatinine 1.1, Ejection fraction showed 30-35% which is slice worsened from 06/2021 where it was 35-40% She remains on dexamethasone, IV vancomycin and clindamycin, heparin drip, Keppra and normal saline at 75 mL/h 09/12/2021 Patient with respiratory failures and she was intubated and placed on mechanical ventilation with pulmonary/critical care team following her mostly. There is no more seizure-like activity noticed. She still tachypneic with a breathing rate of 32 blood pressure 100/70, she is needing FiO2 of 80% and PEEP of 20. She has no more fevers since admission. Urine culture is growing gram-negative bacilli. Sodium is 146, WBCs is increased at 16.5 K. PH showing acidosis with 7.1 and elevated pCO2 at 83. Chest x-ray showing left sided opacities with near full. A of the left lung. Patient kept on antibiotics in the form of clindamycin and Levaquin and fluconazole. Also she remains on dexamethasone, and so a heparin to Lovenox. Also continued on seizure medication 1500 mg twice a day and IV fluids per pulmonary team. Neurology team on the case 09/13/2021 Patient remains intubated and sedated with pulmonary/critical care team following her closely. Her PEEP is lower today to 18. She remains on FiO2 of 50%. She is tachypneic at 32 about blood pressure is controlled. Her inflammatory markers are increased to LDH of 1009 and CRP of 25.1. Bicarb is elevated at 31 WBC is 17.7, sodium improved to 142. Creatinine improved to 0.6. Chest x-ray showed improving left lung infiltrate. PH is improved slightly 7.2 with pCO2 is slightly better at 79. Urine culture is growing E. coli which is sensitive to the antibiotics. Currently patient is covered with clindamycin, Levaquin and fluconazole. Also she is on dexamethasone 6 mg, Keppra 1500 mg and half-normal saline at 50 m L per hour Anticoagulation switch from heparin drip and to Lovenox 09/14/2021 Patient still intubated and sedated on mechanical ventilation with pulmonary/critical care team following her closely and just her vent setting. Today her FiO2 of 55%, and she is tachypneic at 33 breath per minute. Labs showing stable findings with sodium 141, creatinine 0.8, liver enzymes slightly elevated, LDH slightly down at 797 and CRP 2-3.2. Same leukocytosis at 14.7. Her pH is 7.2 and carbon dioxide is 82. D-dimer mildly elevated at 0.9, just x-ray showing bilateral infiltrate with no significant change from prior. She remains on the same antibiotic of clindamycin, Levaquin, dexamethasone, Keppra 1500 mg and half normal saline at 50 mL/h 09/15/2021 Patient in the ICU intubated and sedated, with pulmonary/critical care team following closely. FiO2 still 50%, hemodynamically showing both staple blood pressure 101/40, patient is tachypneic more than 30 per minutes. PEEP is lower. wbc of 11.3, hemoglobin 9.4, sodium 140, creatinine 0.8. chest x-ray: mild worsening infiltrate in the left lobe. patient continued with the same treatment of clindamycin, levaquin, dexamethasone, keppra and she received 1 l of normal saline today. 09/16/2021 Patient is seen and evaluated and follow-up continues to be closely monitored in the ICU. 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 Patient continues on mechanical vent with an FiO2 of 50% and PEEP is 10. Weaning is being continued and PEEP is being titrated down to 8. Patient continues with sedation holidays and very minimal propofol and patient is now off Nimbex and very minimal stimulus noted. Patient response to painful stimulus minimally. Plan is for possible CT of the brain r epeat this afternoon. Patient also being closely monitored for continued seizures of which she does have a past medical history of. Patient is also Covid positive and infectious disease is following and patient is maintained on clindamycin along with Levaquin. Chest x-ray today shows correlate for left lower lobe pneumonia versus atelectasis with possible associated effusion. 09/17/2021 Patient is seen in follow-up this morning closely monitored in the ICU. Neurology also following and patient is maintained on IV Keppra. Patient also continues on IV antibiotics in the form of aztreonam and clindamycin with infectious disease following. Patient urine culture showing E. coli. Chest x-r ay today shows chronic emphysematous changes with left basilar acute infiltrate and/or atelectasis and likely small left pleural effusion all redemonstrated with no significant change from previous day. Neurology following And okay to resume anticoagulant as there is no evidence of new intracranial process or hemorrhage. Patient is off sedation and continues to be unresponsive. 09/18/2021 Patient is evaluated again this morning and continues to be in the ICU on mechanical vent and being closely monitored. FiO2 is at 45% and PEEP is 8. Patient continues to be off sedation with no response for over 24 hours. Neurology following as well and have discussed overall prognosis with family and family discussing with other family members about CODE STATUS and treatment plan moving forward. Infectious disease also following and patient is maintained on IV Levaquin along with clindamycin and aztreonam and will continue. Urine cultures finalized showing E. coli and sputum culture preliminary is pending at this time. Labs: WBC is 7.6, hemoglobin is 9.5, platelets are 190, sodium 138, potassium 3.8, BUN 34, creatinine 0.76, calcium 7.7 09/19/2020 Patient evaluated today in the ICU on mechanical ventilation. Fi02 at 45% with a PEEP of 8. Propofol infusing, Nimbex and Levophed are currently on hold. Precedex discontinued. There has been no response, and mental status is not improving. Still no response to verbal stimuli. Patient is being followed closely by neurology for this and is on IV keppra and tegretol. EEG consistant with toxic metabolic encepholapthy. Repeat chest xray today shows similar opacities given patient rotation. Stable support tubes. Mild pulmonary vascular congestion correlate with serum BNP. Blood cultures negative, pending finalized, sputum negative so far. Labs reviewed today: WBC 9.2, hgb 10.3, sodium 138, potassium 3.8, BUN 33, Cr 0.76, glucose in the 110's, calcium 7.9, AST 250, ALT 78, Albumin 2.3. Vitals reviewed: Temp 97.4, HR 126, RR 44, Blood pressure 113/80, 96% oxygen saturation on mechanical ventilation. Review of systems: Unable to obtain as patient continues to be on mechanical ventilation. All current medications reviewed and appropriate. Physical exam: GENERAL: The patient is intubated and sedated, FiO2 is 45% and PEEP is 8 HEENT: Pupils are round and equally reacting to light. EOMI. No scleral icterus. No conjunctival pallor. Normocephalic, atraumatic. No pharyngeal erythema. No thyromegaly. CARDIOVASCULAR: S1 and S2 present. No murmurs, rubs, or gallops. PULMONARY: Chest expansion even ABDOMEN: Soft, nontender, nondistended, normoactive bowel sounds. No palpable organomegaly. MUSCULOSKELETAL: No joint swelling or deformity. EXTREMITIES: No cyanosis, clubbing, or pedal edema. NEUROLOGICAL: Gross neurological examination did not reveal any focal deficits. SKIN: No rashes. no petechiae. Assessment: Altered mental status could be metabolic/toxic encephalopathy, ruled out other intracranial lesions, and possibly secondary to seizure Left lower lobe pneumonia, rule out aspiration pneumonia Acute urinary tract infection, present on admission with culture showing E. coli Sepsis secondary to UTI and pneumonia Breakthrough seizure Bilateral Covid pneumonia Acute hypoxic respiratory failure secondary to COVID-19 pneumonia with mechanical intubation Increased inflammatory markers elevated troponin, most likely type II ischemia. Rule out primary cardiac causes Cardiomyopathy with most recent EF of 30-35% Hypernatremia, improving Acute kidney injury, improved Mild elevated liver enzymes History of coronary artery disease History of pulmonary embolism History of seizure disorder, last seizure was in 2009 as per documents History 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 left foot drop History of glaucoma status post surgery Status post permanent pacemaker Nicotine dependence GI prophylaxis DVT prophylaxis Full code Plan: This is a pleasant 51 years old female who presents with altered mental status, pneumonia, UTI, possible stroke although most likely old infarcts noted on CT, seizure and positive for covid pneumonia Continue with Keppra and neurology following and patient has been off sedation and continues to be unresponsive. CT of the brain shows old right hemisphere infarct without change old left posterior frontal lobe cortical infarct without change and no acute abnormality. pulmonary and infectious disease following, continue the broad-spectrum antibiotics with fluconazole. Urine Cultures grown sensitive E. coli which is covered With aztreonam and clindamycin Continue with dexamethasone, vitamin and zinc supplements along with Lovenox Cardiology team evaluated the patient for elevated troponin, patient does not have A. fib per operating room registered nurse Family aware of overall prognosis and would like to discuss further with other family members about CODE STATUS and patient is continued is full code for now. Overall Prognosis remains poor and extremely guarded Objective - Vital Signs Vital signs: Vital Signs Temp 97.4 F L 09/19/21 08:00 Pulse 126 H 09/19/21 10:00 Resp 44 H 09/19/21 10:00 BP 113/80 09/19/21 10:00 Pulse Ox 96 09/19/21 10:00 Intake & Output 09/18/21 09/19/21 09/19/21 18:59 06:59 18:59 Intake Total 6186.250 2748.103 838 Output Total 1530 1475 790 Balance -93.181 -83.897 48 Weight 64 kg 60.3 kg Intake: IV 736 636 512 Aztreonam 2 gm In Sodium 100 Chloride 0.9% 100 ml @ 33 .333 mls/hr IVPB Q8H [facility] Rx#:[id number] Clindamycin 600 mg In 100 Dextrose 5% in Water 50 ml @ 50 mls/hr IVPB Q8H [facility] Rx#:[id number] Levofloxacin 500Mg-D5w 100 Pmx 500 mg In Dextrose/ Water 1 100ml.bag @ 100 mls/hr IVPB Q24H [facility] Rx#: [id number] Pressure bag 36 36 12 Sodium Chloride 0.45% 1, 600 600 200 000 ml @ 50 mls/hr IV . Q20H [facility] Rx#:[id number] levETIRAcetam IV 1,000 mg 100 In Saline 1 100ml.bag @ 400 mls/hr IVPB Q12HR [facility] Rx#:[id number] Intake, IV Titration 292.819 257.103 100 Amount Aztreonam 2 gm In Sodium 100 Chloride 0.9% 100 ml @ 33 .3 mls/hr IVPB Q8HR [facility] Rx#:[id number] Dexmedetomidine/0.9% NaCl 92.819 81.263 (Pmx) 400 mcg In Empty Bag 1 bag @ 0.2 MCG/KG/HR 3.195 mls/hr IV .Q24H [facility] Rx#:[id number] Levofloxacin 500Mg-D5w 100 Pmx 500 mg In Dextrose/ Water 1 100ml.bag @ 100 mls/hr IVPB Q24H [facility] Rx#: [id number] propofoL 1,000 mg In 175.84 100 Empty Bag 1 bag @ Titrate IV .Q0M [facility] Rx#: [id number] Tube Feeding 408 408 136 Other 90 90 Output: Urine 1530 1475 790 Other: Voiding Method Indwelling Catheter Indwelling Catheter Indwelling Catheter ABP, PAP, CO, CI - Last Documented Arterial Blood Pressure 102/69 - Labs CBC & Chem 7: 09/19/21 05:31 09/19/21 05:31 Labs: Abnormal Lab Results - Last 24 Hours (Table) 09/18/21 09/18/21 09/18/21 Range/Units 11:40 18:03 23:50 RBC (3.80-5.40) m/uL Hgb (11.4-16.0) gm/dL Hct (34.0-46.0) % MCV (80.0-100.0) fL Neutrophils # (1.3-7.7) k/uL ABG pCO2 (35-45) mmHg ABG pO2 (83-108) mmHg ABG HCO3 (21-25) mmol/L ABG Total CO2 (19-24) mmol/L ABG O2 Saturation (94-97) % BUN (7-17) mg/dL Glucose (74-99) mg/dL POC Glucose (mg/dL) 199 H 115 H 106 H (75-99) mg/dL Calcium (8.4-10.2) mg/dL AST (14-36) U/L ALT (4-34) U/L Total Protein (6.3-8.2) g/dL Albumin (3.5-5.0) g/dL 09/19/21 09/19/21 09/19/21 Range/Units 05:04 05:31 05:31 RBC 3.31 L (3.80-5.40) m/uL Hgb 10.3 L (11.4-16.0) gm/dL Hct 33.1 L (34.0-46.0) % MCV 100.1 H (80.0-100.0) fL Neutrophils # 7.8 H (1.3-7.7) k/uL ABG pCO2 47 H (35-45) mmHg ABG pO2 78 L (83-108) mmHg ABG HCO3 32 H (21-25) mmol/L ABG Total CO2 33 H (19-24) mmol/L ABG O2 Saturation 93.6 L (94-97) % BUN 33 H (7-17) mg/dL Glucose 132 H (74-99) mg/dL POC Glucose (mg/dL) (75-99) mg/dL Calcium 7.9 L (8.4-10.2) mg/dL AST 250 H (14-36) U/L ALT 78 H (4-34) U/L Total Protein 5.2 L (6.3-8.2) g/dL Albumin 2.3 L (3.5-5.0) g/dL 09/19/21 Range/Units 06:05 RBC (3.80-5.40) m/uL Hgb (11.4-16.0) gm/dL Hct (34.0-46.0) % MCV (80.0-100.0) fL Neutrophils # (1.3-7.7) k/uL ABG pCO2 (35-45) mmHg ABG pO2 (83-108) mmHg ABG HCO3 (21-25) mmol/L ABG Total CO2 (19-24) mmol/L ABG O2 Saturation (94-97) % BUN (7-17) mg/dL Glucose (74-99) mg/dL POC Glucose (mg/dL) 120 H (75-99) mg/dL Calcium (8.4-10.2) mg/dL AST (14-36) U/L ALT (4-34) U/L Total Protein (6.3-8.2) g/dL Albumin (3.5-5.0) g/dL Microbiology - Last 24 Hours (Table) 09/16/21 21:25 Blood Culture - Preliminary Blood No Growth after 48 hours 09/17/21 23:51 Gram Stain - Preliminary Sputum Sputum Culture - Preliminary
--- NOTE | 2021-09-19 12:35 | P.PN ---
Subjective Progress Note Date: 09/19/21 The patient is seen at bedside and continues to be intubated on ventilator. The patient was started on IV Propofol 50mcg/kg/min since is tachypenic. Per nurse no improvement in patient's condition. Per nurse, no family has reached out to nursing staff today about family decision. She is on Norepinephrine. Objective - Vital Signs Vital signs: Vital Signs Temp 99.2 F 09/19/21 12:00 Pulse 131 H 09/19/21 12:00 Resp 32 H 09/19/21 12:00 BP 130/88 09/19/21 12:00 Pulse Ox 95 09/19/21 12:00 Intake & Output 09/18/21 09/19/21 09/19/21 18:59 06:59 18:59 Intake Total 5298.282 6666.103 838 Output Total 1530 1475 790 Balance -93.181 -83.897 48 Weight 64 kg 60.3 kg Intake: IV 736 636 512 Aztreonam 2 gm In Sodium 100 Chloride 0.9% 100 ml @ 33 .333 mls/hr IVPB Q8H [facility] Rx#:[id number] Clindamycin 600 mg In 100 Dextrose 5% in Water 50 ml @ 50 mls/hr IVPB Q8H [facility] Rx#:[id number] Levofloxacin 500Mg-D5w 100 Pmx 500 mg In Dextrose/ Water 1 100ml.bag @ 100 mls/hr IVPB Q24H [facility] Rx#: [id number] Pressure bag 36 36 12 Sodium Chloride 0.45% 1, 600 600 200 000 ml @ 50 mls/hr IV . Q20H [facility] Rx#:[id number] levETIRAcetam IV 1,000 mg 100 In Saline 1 100ml.bag @ 400 mls/hr IVPB Q12HR [facility] Rx#:[id number] Intake, IV Titration 292.819 257.103 100 Amount Aztreonam 2 gm In Sodium 100 Chloride 0.9% 100 ml @ 33 .3 mls/hr IVPB Q8HR [facility] Rx#:[id number] Dexmedetomidine/0.9% NaCl 92.819 81.263 (Pmx) 400 mcg In Empty Bag 1 bag @ 0.2 MCG/KG/HR 3.195 mls/hr IV .Q24H [facility] Rx#:[id number] Levofloxacin 500Mg-D5w 100 Pmx 500 mg In Dextrose/ Water 1 100ml.bag @ 100 mls/hr IVPB Q24H [facility] Rx#: [id number] propofoL 1,000 mg In 175.84 100 Empty Bag 1 bag @ Titrate IV .Q0M [facility] Rx#: [id number] Tube Feeding 408 408 136 Other 90 90 Output: Urine 1530 1475 790 Other: Voiding Method Indwelling Catheter Indwelling Catheter Indwelling Catheter ABP, PAP, CO, CI - Last Documented Arterial Blood Pressure 125/68 - Exam GENERAL: The patient is lying in bed and is not in acute distress. CHEST: on NE. LUNG: Intubated on ventilator. NEUROLOGICAL: Limited since is on IV Propofol 50mcg/kg/min Higher mental function: Comatose GCS 5 (E3, VT1, M1). No responsive or following commands. Cranial nerves: I had to manually open eyes and primary gaze is midline. The pupils are round, 2mm, equal and reactive to light. No corneal reflex appreciated. No facial weakness. Is breathing over the vent. Has weak gag reflex. Otherwise rest could not be assessed. Motor: The strength is 0/5 throughout. Sensation: Could not assess light touch. To painful stimuli not withdrawing throughout. SOME OF THE WORK-UP: * Cash virus PCR is positive * Positive urinary tract infection with urine culture of E. coli. * Ammonia level 24 * CT of the head on 09/16/2021 was reported as old right hemispheric infarct without change. Old left posterior frontal lobe cortical infarct with that change. No acute abnormality. I personally reviewed the CT of the head and I do agree there is no acute or subacute ischemia there is no intracranial hemorrhage. The patient had old the strokes in the past predominantly over the right right MCA and right occipital and old left frontal. * Patient's blood test shows Tegretol level <3.0, Keppra 79.2 and Neurontin level <1.0. * On Tegretol 200 mg 3 times a dayand Keppra 1500 mg twice a day. * Urine drug seeing is not detected. Serum alcohol was less than 10. * EEG was performed and it is reported as background slowing of at least moderate degree. This is suggestive of generalized cerebral dysfunction as can be seen with toxic metabolic encephalopathy or due to diffuse structural brain abnormality or postictal effect. No epileptiform activity was seen. - Labs CBC & Chem 7: 09/19/21 05:31 09/19/21 05:31 Labs: Abnormal Lab Results - Last 24 Hours (Table) 09/18/21 09/18/21 09/19/21 Range/Units 18:03 23:50 05:04 RBC (3.80-5.40) m/uL Hgb (11.4-16.0) gm/dL Hct (34.0-46.0) % MCV (80.0-100.0) fL Neutrophils # (1.3-7.7) k/uL ABG pCO2 47 H (35-45) mmHg ABG pO2 78 L (83-108) mmHg ABG HCO3 32 H (21-25) mmol/L ABG Total CO2 33 H (19-24) mmol/L ABG O2 Saturation 93.6 L (94-97) % BUN (7-17) mg/dL Glucose (74-99) mg/dL POC Glucose (mg/dL) 115 H 106 H (75-99) mg/dL Calcium (8.4-10.2) mg/dL AST (14-36) U/L ALT (4-34) U/L Total Protein (6.3-8.2) g/dL Albumin (3.5-5.0) g/dL 09/19/21 09/19/21 09/19/21 Range/Units 05:31 05:31 06:05 RBC 3.31 L (3.80-5.40) m/uL Hgb 10.3 L (11.4-16.0) gm/dL Hct 33.1 L (34.0-46.0) % MCV 100.1 H (80.0-100.0) fL Neutrophils # 7.8 H (1.3-7.7) k/uL ABG pCO2 (35-45) mmHg ABG pO2 (83-108) mmHg ABG HCO3 (21-25) mmol/L ABG Total CO2 (19-24) mmol/L ABG O2 Saturation (94-97) % BUN 33 H (7-17) mg/dL Glucose 132 H (74-99) mg/dL POC Glucose (mg/dL) 120 H (75-99) mg/dL Calcium 7.9 L (8.4-10.2) mg/dL AST 250 H (14-36) U/L ALT 78 H (4-34) U/L Total Protein 5.2 L (6.3-8.2) g/dL Albumin 2.3 L (3.5-5.0) g/dL Microbiology - Last 24 Hours (Table) 09/16/21 21:25 Blood Culture - Preliminary Blood No Growth after 48 hours 09/17/21 23:51 Gram Stain - Preliminary Sputum Sputum Culture - Preliminary Assessment and Plan Assessment: * Altered mental status, likely due to toxic metabolic encephalopathy, and medication effect (IV Propofol). Also Causes multifactorial as mentioned below. * Breakthrough seizure, likely due to multiple metabolic derangements. Patient had seizure disorder for long time, seizures in remission since 2009. * Acute Covid-19 infection with pneumonia. * Probable acute UTI. 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 * History of pacemaker. Plan: * Patient's blood test shows Tegretol level <3.0, Keppra 79.2 and Neurontin level <1.0. * On Tegretol 200 mg 3 times a dayand Keppra 1500 mg twice a day. * EEG was performed and it is reported as background slowing of at least moderate degree. This is suggestive of generalized cerebral dysfunction as can be seen with toxic metabolic encephalopathy or due to diffuse structural brain abnormality or postictal effect. No epileptiform activity was seen. * CT of the head on 09/16/2021 was reported as old right hemispheric infarct without change. Old left posterior frontal lobe cortical infarct with that change. No acute abnormality. I personally reviewed the CT of the head and I do agree there is no acute or subacute ischemia there is no intracranial hemor rhage. The patient had old the strokes in the past predominantly over the right right MCA and right occipital and old left frontal. * Resume anticoagulation with Eliquis as early as possible per Dr. Chua. Cardiology also on board. * Other medical management as per IM, critical care. * Upon discharge, the patient needs to follow-up with a neurologist within 1-2 weeks as outpatient. * Condition: Is critical and appears poor. The plan is discussed with the nurse. I discussed the case with the patient's father (Chris) via phone on 09/18/21 and pending family decision. Phuc Serrano M.D. Neuro-Hospitalist Time with Patient: Less than 30
--- NOTE | 2021-09-19 12:38 | P.PN ---
Subjective Progress Note Date: 09/19/21 Principal diagnosis: Acute COVID-19 pneumonia with acute hypoxic respiratory failure and altered mental status. This is a 51-year-old female patient was brought into because of an altered mental status. The patient was found by her brother was concerned about her mental status. The patient has poor baseline performance and functional status and more recently she wasn't able to take care of herself. She was feeling more lethargic and tired and based on all this, she was brought into the emergency department. In the ED, the patient was having seizures and tachycardia and she was altered and unresponsive. The patient was given IV Ativan. At the time of my evaluation, the patient was quite sedated. No tracheal evidence of a seizure activity and the patient was withdrawing and 4 extremities without any limitation. The patient furthermore was found to have significant abnormalities in her blood work. The patient also tested positive for COVID 19. In summary, the patient was found to have a sodium level LXIV, chloride of 116, FiO2 of 4.6, troponin of 0.3, and UA was abnormal highly suspicious for underlying urine checked infection. Urine drug screen was negative. At this point in time, the patient on IV fluids and the patient is receiving D5 water at the rate of 100 mL an hour. The patient was given a combination of vancomycin and aztreonam as empiric antibiotic coverage. The patient was also started on Decadron 6 mg IV every 12 hours. Chest x-ray showing a left perihilar and lower lobe pulmonary infiltration and the patient is currently on 6 L of oxygen by nasal cannula with a pulse of a 98%. She is in sinus tachycardia. Nevertheless, she has history of atrial fibrillation. She has been minimal, to coagulation with Eliquis and she was also taken amiodarone on outpatient basis. She is also known to have cardiomyopathy with an ejection fraction of 30-35%. On regular inspection, the patient looks quite debilitated. She has a body mass index of 19.7. Very poor oral hygiene and multiple decayed teeth. Her personal hygiene is also poor. 09/13/2021, the patient remains intubated on mechanical ventilator. She was intubated as the patient lost her left lung and there was complete atelectasis of the left lung due to mucous plugs. Bronchoscopy was done post intubation. Reexpansion of the left lung was achieved. Nevertheless, the left lung is infiltrated. Subsequently the patient went into ARDS. At this point in time, the patient is intubated on mechanical ventilator. She remains on a volume cycled mechanical ventilation. She is sedated with propofol running at 50 mcg/kg per minute and the patient is also on Nimbex running at 2 mcg/kg per minute. Hemodynamically, she is stable. On mechanical ventilator, she is an assist-control at the rate of 32 with a tidal volume of 300 and FiO2 of 70% with a PEEP of 20. Morning blood gases showed a pH of 7.21 with a pCO2 of 79 and pO2 of 136. Based on that, further adjustments on a mechanical ventilator with him. On today's chest x-ray, there is no evidence of pneumothorax. Left lung is infiltrated compared to the right and there is still some atelectatic changes and infiltration of the left lung base. The bronchoscopy and the lavage of the left lung was done. Cultures still pending. Urine cultures positive for gram- negative bacillus and the patient is still on a combination of Levaquin and clindamycin. The patient is also on Diflucan due to extensive oropharyngeal candidiasis was noted at a time of intubation. The patient was started on enteral feeding for nutritional support. She is currently receiving vitamin 1.2 at the rate of 20 mL an hour. IV fluids in the form of half-normal saline at the rate of 45 mL an hour. The patient has a white cell count of 17.7, hemoglobin is at 12.7, d-dimer is at 0.8, sodium is at 142, BUN is at 27 with a creatinine of 0.6. LDH level is 1009 and the CRP level is 25. Note that the LDH is lower compared to yesterday. No pressors for now. Urine output is adequate. No fever. No other significant events overnight. Patient was reevaluated today on 09/14/2021, patient remains intubated and mechanically ventilated, she is on assist control rate of 32, tidal volume of 300 FiO2 50%, PEEP 18. ABG showed a pO2 of 95 pCO2 of 82 pH of 7.25. Tidal volume was increased to 325, and PEEP was cut down to 14. Patient remains on propofol at 50 minute, Nimbex at 2 mcg/kg/m. IV fluid is 0.45 at 50 mL per ayah r, and 0.9 normal saline at 20 mL per hour. Patient is on enteral feeding, she is receiving vital 1.4 at 34/34. Patient has a right femoral triple-lumen catheter, right femoral arterial line, I was told that the patient has a large area of decubitus ulcer on her coccyx, hence I recommended consultation to 1 services. Antibiotics martinez she is on clindamycin, fluconazole, and she is also on Levaquin. Patient remains sedated and paralyzed, and I could not assess her mental status. WBC count is 17.4 hemoglobin 11.3, d-dimer is 0.91. Basic metabolic profile is normal renal profile is normal liver enzymes are borderline elevated LDH is 797 C-reactive protein is 23.2. Reevaluated today on 09/15/2021, patient is basically about the same, remains intubated and mechanically ventilated. Sedated and paralyzed, however I plan to discontinue Nimbex today. Chest x-ray showed mostly bibasilar airspace disease, patient is on a rate of 32, tidal volume 325 FiO2 50% and PEEP 14. She is still requiring propofol at 15 Nimbex at 2 and she is on feeding using vital 1.2 at 31 mL per hour. Her LDH today is down to 891 from 1509 and her C-reactive protein is down to 19 from 25 recently. Ventilatory-martinez I cut down her repeat to 10 from 14, Her on 50% for now. Her WBC count today is 11.3 hemoglobin is 10.0. ABG showed a pO2 of 93 pCO2 75 pH of 7.33 electrolytes are normal bicarb is 38 BUN is 53 creatinine 0.87. Overall the patient seems to be ventilating better, now that the PEEP is down to 10, I would discontinue Nimbex, and hopefully the patient could be maintained only on propofol and maybe adding fentanyl if needed. In the next 24 hours, I'm hoping that I could start addressing weaning constipation or at least weaning trials on a weaning mode of mechanical ventilation. Likely pressure support and CPAP if tolerated. Patient was reevaluated today on 09/16/21, remains in the ICU, intubated and mechanically ventilated. Patient is now off Nimbex, and she is on relatively low dose of propofol, which I plan to discontinue and address mental status, her Nimbex has been off for the last 24 hours, and propofol was discontinued earlier today, however so far the patient is not responding to any stimuli. She opens eyes only with deep painful stimuli. She is being followed by neurology. Patient is now on assist control rate of 32 tidal volume 325 FiO2 50% and PEEP is 10. I am keeping her FiO2 at 50% but I'm cutting down the PEEP down to 8. And I'm continuing to hold sedation. Her ABG today showed a pO2 of 96 pCO2 56 pH of 7.45. Her labs are basically unremarkable. CBC is relatively normal except for hemoglobin of 9.4. Sodium is normal at 140. Bicarb is 38. Renal profile is normal. And calcium is 7.2. Chest x-ray is showing left lower lobe pneumonia/atelectasis. Patient was seen by neurology today, still believe that the patient has toxic metabolic encephalopathy, post ictal state, and breakthrough seizures however the recommendation is to continue to hold sedation and if no improvement off sedation but later today, may consider CT of the brain. Patient was reevaluated today on 09/17/21, she remains in the ICU, intubated and mechanically ventilated. Patient is on assist control rate of 32 tidal volume of 325 FiO2 50% PEEP of 8. ABG showed a pO2 of 97 pCO2 49 pH of 7.42. Last night, the patient was completely off sedation, she became extremely agitated, restless, not making any purposeful movements, patient was not synchronous with the ventilator, and she was difficult to ventilate, hence the patient was given 1 dose of Nimbex, and placed back on propofol at 50 mcg/kg/m, it was increased even to as high as 75, patient remains asynchronous, and then Nimbex was given. Today the patient is off propofol, she is not waking up yet, patient is fully ventilated, and she is not arousable even to deep painful stimuli. She is not requiring any pressors, I have a feeling that I could potentially wean this patient if she wakes up, and she becomes unresponsive and appropriate. But that is yet to be determined, today I recommended that we start the patient on Precedex and discontinue propofol altogether. We will keep the patient on the present vent settings, we'll continue Precedex, and if she wakes up, we will could potentially wean and decide whether the patient could even be extubated. May see count today is 8.7 hemoglobin is 9.8. Electrodes are normal renal profile is normal. Reevaluated today on 09/18/21, patient remains in the ICU, intubated and mechanically ventilated. Patient is not making any significant neurological im provement. She has been off sedation for few days, yesterday we started the patient only on Precedex, and that's mostly to keep her synchronous with the ventilator. Again her mental status is basically about the same, and she is not showing much improvement. She opens eyes slightly to deep painful stimuli, but no purposeful movement and no responses to verbal stimuli. She is on assist control rate of 32 tidal volume 325 FiO2 was 50% and PEEP was 8 however I cut down her FiO2 to 45%. Patient is receiving enteral feeding, vital AF at 34 mL per hour. ABG today showed a pO2 of 107 pCO2 44 pH of 7.46. Basic metabolic profile is normal WBC count is 7.6 hemoglobin is 9.5. No significant metabolic abnormality to explain her encephalopathy at this point. Patient is still being followed by neurology on the case. Patient is still being treated for coronary virus infection, and UTI on admission secondary to E. coli. 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 No acute process was noted. Patient remains on seizure medications as per neurology including Keppra and Tegretol. EEG showed slowing/moderate degree of slowing suggestive of generalized cerebral dysfunction. This is seen with toxic metabolic encephalopathy. Reevaluated today on 09/19/21, patient remains in the ICU, intubated and mechanically ventilated, she is on assist control rate of 32 tidal volume of 325 FiO2 45% and PEEP of 8. Patient had to be placed on propofol yesterday at 50 mcg/kg/m, she is on IV fluid at 50 mL per hour. ABG showed a pO2 of 78 pCO2 of 47 pH of 7.44. Chest x-ray is basically about, no change. WBC count is 9.2 hemoglobin is 10.3. Electrolytes are normal. Again the patient had to be placed back on propofol because she was getting agitated, restless, and not synchronous with the ventilator yesterday. Remains on propofol today, and patient is not responding to any stimuli. Hence I'm keeping her on propofol, I believe the patient will eventually require tracheostomy and PEG tube placement unless CODE STATUS is changed to comfort care. Chest x-ray is basically showing no significant abnormalities. She does have mild pulmonary vascular congestion. Objective - Vital Signs Vital signs: Vital Signs Temp 99.2 F 09/19/21 12:00 Pulse 131 H 09/19/21 12:00 Resp 32 H 09/19/21 12:00 BP 130/88 09/19/21 12:00 Pulse Ox 95 09/19/21 12:00 Intake & Output 09/18/21 09/19/21 09/19/21 18:59 06:59 18:59 Intake Total 4393.436 1831.103 838 Output Total 1530 1475 790 Balance -93.181 -83.897 48 Weight 64 kg 60.3 kg Intake: IV 736 636 512 Aztreonam 2 gm In Sodium 100 Chloride 0.9% 100 ml @ 33 .333 mls/hr IVPB Q8H ADDIE Rx#:[id number] Clindamycin 600 mg In 100 Dextrose 5% in Water 50 ml @ 50 mls/hr IVPB Q8H ADDIE Rx#:[id number] Levofloxacin 500Mg-D5w 100 Pmx 500 mg In Dextrose/ Water 1 100ml.bag @ 100 mls/hr IVPB Q24H ADDIE Rx#: [id number] Pressure bag 36 36 12 Sodium Chloride 0.45% 1, 600 600 200 000 ml @ 50 mls/hr IV . Q20H ADDIE Rx#:[id number] levETIRAcetam IV 1,000 mg 100 In Saline 1 100ml.bag @ 400 mls/hr IVPB Q12HR ADDIE Rx#:[id number] Intake, IV Titration 292.819 257.103 100 Amount Aztreonam 2 gm In Sodium 100 Chloride 0.9% 100 ml @ 33 .3 mls/hr IVPB Q8HR ADDIE Rx#:[id number] Dexmedetomidine/0.9% NaCl 92.819 81.263 (Pmx) 400 mcg In Empty Bag 1 bag @ 0.2 MCG/KG/HR 3.195 mls/hr IV .Q24H ADDIE Rx#:[id number] Levofloxacin 500Mg-D5w 100 Pmx 500 mg In Dextrose/ Water 1 100ml.bag @ 100 mls/hr IVPB Q24H ADDIE Rx#: [id number] propofoL 1,000 mg In 175.84 100 Empty Bag 1 bag @ Titrate IV .Q0M ADDIE Rx#: [id number] Tube Feeding 408 408 136 Other 90 90 Output: Urine 1530 1475 790 Other: Voiding Method Indwelling Catheter Indwelling Catheter Indwelling Catheter ABP, PAP, CO, CI - Last Documented Arterial Blood Pressure 125/68 - Exam -GENERAL: Revealed a 51-year-old female mechanically ventilated, back on propofol. HEENT: Adelita, nonicteric, no neck masses, no JVD, endotracheal tube and orogastric tube are intact. CARDIOVASCULAR: S1 and S2 present. No murmurs, rubs, or gallops. PULMONARY: Symmetrical chest expansion crackles at the bases. ABDOMEN: Soft nontender no megaly no rebound no guarding. MUSCULOSKELETAL: No joint swelling or deformity. EXTREMITIES: No cyanosis, clubbing, or pedal edema. NEUROLOGICAL: Unresponsive to any deep painful stimuli. Except the open eyes at times SKIN: large coccygeal ulcer - Labs CBC & Chem 7: 09/19/21 05:31 09/19/21 05:31 Labs: Abnormal Lab Results - Last 24 Hours (Table) 09/18/21 09/18/21 09/19/21 Range/Units 18:03 23:50 05:04 RBC (3.80-5.40) m/uL Hgb (11.4-16.0) gm/dL Hct (34.0-46.0) % MCV (80.0-100.0) fL Neutrophils # (1.3-7.7) k/uL ABG pCO2 47 H (35-45) mmHg ABG pO2 78 L (83-108) mmHg ABG HCO3 32 H (21-25) mmol/L ABG Total CO2 33 H (19-24) mmol/L ABG O2 Saturation 93.6 L (94-97) % BUN (7-17) mg/dL Glucose (74-99) mg/dL POC Glucose (mg/dL) 115 H 106 H (75-99) mg/dL Calcium (8.4-10.2) mg/dL AST (14-36) U/L ALT (4-34) U/L Total Protein (6.3-8.2) g/dL Albumin (3.5-5.0) g/dL 09/19/21 09/19/21 09/19/21 Range/Units 05:31 05:31 06:05 RBC 3.31 L (3.80-5.40) m/uL Hgb 10.3 L (11.4-16.0) gm/dL Hct 33.1 L (34.0-46.0) % MCV 100.1 H (80.0-100.0) fL Neutrophils # 7.8 H (1.3-7.7) k/uL ABG pCO2 (35-45) mmHg ABG pO2 (83-108) mmHg ABG HCO3 (21-25) mmol/L ABG Total CO2 (19-24) mmol/L ABG O2 Saturation (94-97) % BUN 33 H (7-17) mg/dL Glucose 132 H (74-99) mg/dL POC Glucose (mg/dL) 120 H (75-99) mg/dL Calcium 7.9 L (8.4-10.2) mg/dL AST 250 H (14-36) U/L ALT 78 H (4-34) U/L Total Protein 5.2 L (6.3-8.2) g/dL Albumin 2.3 L (3.5-5.0) g/dL Microbiology - Last 24 Hours (Table) 09/16/21 21:25 Blood Culture - Preliminary Blood No Growth after 48 hours 09/17/21 23:51 Gram Stain - Preliminary Sputum Sputum Culture - Preliminary Assessment and Plan Assessment: Impression: Acute hypoxic respiratory failure secondary to COVID-19 pneumonia Altered mental status, acute toxic metabolic encephalopathy. No acute CVA noted on brain CT. Acute COVID-19 pneumonia Acute intravascular depletion with dehydration and electrolyte imbalance on her initial presentation. Resolved. History of seizure activity. Remains on seizure medications including Keppra and Tegretol. Previous history of pulmonary embolism, on long-term treatment with Eliquis. Paroxysmal atrial fibrillation Cardiomyopathy and LV dysfunction with ejection fraction of 30-35%. History of pacemaker implantation. 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 coli urinary tract infection History of psoriasis Sacral /coccygeal decubitus ulcer Recommendation: Continue ventilatory support. Restarted back on propofol to keep her synchronous with the ventilator. Continue same ventilator settings. ABG seems to be reasonable. Continue supportive care measures Continue antibiotics, Levaquin and clindamycin Continue Lovenox 40 mg subcu for DVT Continue IV Decadron Continue Keppra And Tegretol. continue to monitor inflammatory markers continue enteral feeding continue to monitor in the ICU Patient is critically ill, Critical care time is over 30 minutes Time with Patient: Greater than 30
[2021-09-19 12:58] LABS: Glucose,Whole Blood 137 mg/dL (75-99)
[2021-09-19] MEDS: HYDROmorphone 1 MG/ML 1 ML SYRINGE IVP PRN ×2 (16:02→20:56)
[2021-09-19 17:55] LABS: Glucose,Whole Blood 100 mg/dL (75-99)
[2021-09-19] MEDS: NOREPINEPHRINE 32 MG in SODIUM CHLORIDE 0.9% 218 ML IV SCH (20:11)
[2021-09-19] MEDS: CISATRACURIUM 200 MG in SODIUM CHLORIDE 0.9% 180 ML IV SCH (20:11)
[2021-09-19] MEDS: ATORVASTATIN 80 MG TAB PO SCH (20:46)
--- NOTE | 2021-09-19 21:28 | P.PN ---
Subjective Progress Note Date: 09/19/21 Principal diagnosis: Pneumonia pressure ulcer and multiple antibiotic allergies Patient is a 51-year-old female presenting to the hospital on September 10 for mental status changes patient did have a evidence of COVID-19 infection, with respiratory failure requiring intubation also with E. coli UTI and the patient did have multiple antibiotic allergies. On today's evaluation that is 09/19/2021, patient is afebrile today, the patient is hemodynamically stable not on any pressor support, the patient FiO2 is currently stable at 45%, no significant purulent secretions from the ET or diarrhea reported by the nursing staff Objective - Vital Signs Vital signs: Vital Signs Temp 99.3 F 09/19/21 20:00 Pulse 124 H 09/19/21 20:00 Resp 38 H 09/19/21 20:00 BP 87/63 09/19/21 19:00 Pulse Ox 95 09/19/21 20:00 Intake & Output 09/19/21 09/19/21 09/20/21 06:59 18:59 06:59 Intake Total 2983.355 8284.2 174 Output Total 1475 2015 225 Balance -83.897 -337.8 -51 Weight 60.3 kg Intake: IV 636 936 106 Aztreonam 2 gm In Sodium 100 Chloride 0.9% 100 ml @ 33 .333 mls/hr IVPB Q8H [facility] Rx#:[id number] Levofloxacin 500Mg-D5w 100 Pmx 500 mg In Dextrose/ Water 1 100ml.bag @ 100 mls/hr IVPB Q24H ADDIE Rx#: [id number] Pressure bag 36 36 6 Sodium Chloride 0.45% 1, 600 600 100 000 ml @ 50 mls/hr IV . Q20H ADDIE Rx#:[id number] levETIRAcetam IV 1,000 mg 100 In Saline 1 100ml.bag @ 400 mls/hr IVPB Q12HR [facility] Rx#:[id number] Intake, IV Titration 257.103 183.2 Amount Dexmedetomidine/0.9% NaCl 81.263 (Pmx) 400 mcg In Empty Bag 1 bag @ 0.2 MCG/KG/HR 3.195 mls/hr IV .Q24H [facility] Rx#:[id number] propofoL 1,000 mg In 175.84 183.2 Empty Bag 1 bag @ Titrate IV .Q0M ADDIE Rx#: [id number] Tube Feeding 408 408 68 Other 90 150 Output: Urine 1475 2014 Other: Voiding Method Indwelling Catheter Indwelling Catheter Indwelling Catheter ABP, PAP, CO, CI - Last Documented Arterial Blood Pressure 111/48 - Exam GENERAL DESCRIPTION: Middle-aged male intubated on the vent, no distress. No tachypnea or accessory muscle of respiration use. LUNGS: Unlabored breathing. Decreased breath sound at the base. No wheeze or crackle. HEART: S1, S2, regular rate and rhythm. No loud murmur ABDOMEN: Soft, no tenderness , guarding or rigidity, no organomegaly EXTREMITIES: No edema of feet. - Labs CBC & Chem 7: 09/19/21 05:31 09/19/21 05:31 Labs: Abnormal Lab Results - Last 24 Hours (Table) 09/18/21 09/19/21 09/19/21 Range/Units 23:50 05:04 05:31 RBC 3.31 L (3.80-5.40) m/uL Hgb 10.3 L (11.4-16.0) gm/dL Hct 33.1 L (34.0-46.0) % MCV 100.1 H (80.0-100.0) fL Neutrophils # 7.8 H (1.3-7.7) k/uL ABG pCO2 47 H (35-45) mmHg ABG pO2 78 L (83-108) mmHg ABG HCO3 32 H (21-25) mmol/L ABG Total CO2 33 H (19-24) mmol/L ABG O2 Saturation 93.6 L (94-97) % BUN (7-17) mg/dL Glucose (74-99) mg/dL POC Glucose (mg/dL) 106 H (75-99) mg/dL Calcium (8.4-10.2) mg/dL AST (14-36) U/L ALT (4-34) U/L Total Protein (6.3-8.2) g/dL Albumin (3.5-5.0) g/dL 09/19/21 09/19/21 09/19/21 Range/Units 05:31 06:05 12:56 RBC (3.80-5.40) m/uL Hgb (11.4-16.0) gm/dL Hct (34.0-46.0) % MCV (80.0-100.0) fL Neutrophils # (1.3-7.7) k/uL ABG pCO2 (35-45) mmHg ABG pO2 (83-108) mmHg ABG HCO3 (21-25) mmol/L ABG Total CO2 (19-24) mmol/L ABG O2 Saturation (94-97) % BUN 33 H (7-17) mg/dL Glucose 132 H (74-99) mg/dL POC Glucose (mg/dL) 120 H 137 H (75-99) mg/dL Calcium 7.9 L (8.4-10.2) mg/dL AST 250 H (14-36) U/L ALT 78 H (4-34) U/L Total Protein 5.2 L (6.3-8.2) g/dL Albumin 2.3 L (3.5-5.0) g/dL 09/19/21 Range/Units 17:53 RBC (3.80-5.40) m/uL Hgb (11.4-16.0) gm/dL Hct (34.0-46.0) % MCV (80.0-100.0) fL Neutrophils # (1.3-7.7) k/uL ABG pCO2 (35-45) mmHg ABG pO2 (83-108) mmHg ABG HCO3 (21-25) mmol/L ABG Total CO2 (19-24) mmol/L ABG O2 Saturation (94-97) % BUN (7-17) mg/dL Glucose (74-99) mg/dL POC Glucose (mg/dL) 100 H (75-99) mg/dL Calcium (8.4-10.2) mg/dL AST (14-36) U/L ALT (4-34) U/L Total Protein (6.3-8.2) g/dL Albumin (3.5-5.0) g/dL Microbiology - Last 24 Hours (Table) 09/16/21 21:25 Blood Culture - Preliminary Blood No Growth after 48 hours 09/17/21 23:51 Gram Stain - Preliminary Sputum Sputum Culture - Preliminary Assessment and Plan Assessment: 1-Patient with acute respiratory failure which is multifactorial in this patient who did have a covid19 pneumonia and a concern for possible secondary bacterial pneumonia patient With a new fever blood and sputum cultures was requested yesterday are currently pending, the patient is covered with Azactam 2 g every 8 hours while waiting for the cultures to be finalized and continue supportive car e 2patient with a deep tissue injury to the sacral and upper back area no cellulitis, keep the area dry and off the pressure and dry
[2021-09-19 23:25] LABS: Glucose,Whole Blood 117 mg/dL (75-99)
[2021-09-20 03:43] LABS: Basophils % (A) 0 %; Eosinophils % (A) 0 %; HCT 34.7 % (34.0-46.0); HGB 11.5 gm/dL (11.4-16.0); Lymphocytes # (A) 0.8 k/uL (1.0-4.8); Lymphocytes % (A) 6 %; MCHC 33.2 g/dL (31.0-37.0); MCV 99.2 fL (80.0-100.0); Monocytes # (A) 0.3 k/uL (0-1.0); Monocytes % (A) 2 %; Neutrophils # (A) 11.6 k/uL (1.3-7.7); Neutrophils % (A) 91 %; Platelet Count 239 k/uL (150-450); RDW 13.7 % (11.5-15.5); WBC 12.8 k/uL (3.8-10.6)
[2021-09-20 03:55] LABS: ALT 115 U/L (4-34); AST 424 U/L (14-36); African American GFR (CKD) >90 (>60 ml/min/1.73 sqM); Albumin 2.4 g/dL (3.5-5.0); Alkaline Phosphatase 63 U/L (38-126); Anion Gap 3 mmol/L; Blood Urea Nitrogen 35 mg/dL (7-17); Calcium 7.9 mg/dL (8.4-10.2); Carbon Dioxide 33 mmol/L (22-30); Chloride 101 mmol/L (98-107); Glucose 132 mg/dL (74-99); Non-African American GFR(CKD) >90 (>60 ml/min/1.73 sqM); Potassium 3.8 mmol/L (3.5-5.1); Sodium 137 mmol/L (137-145); Total Bilirubin 0.5 mg/dL (0.2-1.3); Total Protein 5.4 g/dL (6.3-8.2)
[2021-09-20] MEDS ORDERED: POTASSIUM BICARBONATE/CIT AC 20 MEQ TABLET.EFF NG-TUBE SCH (05:00)
[2021-09-20 05:20] LABS: ABG Base Excess 7.8 mmol/L; ABG HCO3 32 mmol/L (21-25); ABG Oxygen Saturation 96.2 % (94-97); ABG PCO2 47 mmHg (35-45); ABG PH 7.44 (7.35-7.45); ABG PO2 101 mmHg (83-108); ABG TCO2 33 mmol/L (19-24); Allen Test Performed? Yes
[2021-09-20] MEDS: HYDROmorphone 1 MG/ML 1 ML SYRINGE IVP PRN ×4 (05:20→20:39)
[2021-09-20] MEDS: INSULIN ASPART (NovoLOG) 100 UNIT/ML VIAL SQ SCH ×4 (05:22→23:50)
[2021-09-20 05:23] LABS: Glucose,Whole Blood 124 mg/dL (75-99)
--- NOTE | 2021-09-20 07:45 | XR ---
EXAMINATION TYPE: XR chest 1V portable DATE OF EXAM: 09/20/2021 COMPARISON: Chest x-ray 09/19/2021 HISTORY: Respiratory failure TECHNIQUE: Single frontal view of the chest is obtained. FINDINGS: Patient is rotated. Endotracheal tube is overlying the tracheal air column in appropriate position, there is an NG tube present with the distal tip not included on exam. Retrocardiac density persists. No evident pneumothorax. There is a generator in the left pectoral region, lead in the righ t ventricle. Aorta is dense. Bones are stable. IMPRESSION: Findings similar to prior exam. Correlate for left lower lobe atelectasis versus pneumon ia
[2021-09-20] MEDS: AZTREONAM 2 GM in SODIUM CHLORIDE 0.9% 100 ML IVPB SCH ×3 (08:42→23:15)
[2021-09-20] MEDS: PANTOPRAZOLE 40 MG/10 ML VIAL IV SCH (08:43)
[2021-09-20] MEDS: carBAMazepine 200 MG TAB PO SCH ×3 (08:43→21:15)
[2021-09-20] MEDS: CHOLECALCIFEROL 125 MCG (5000 IU) TABLET PO SCH (08:43)
[2021-09-20] MEDS: CHLORHEXIDINE GLUCONATE 15 ML CUP MUCOUS MEM SCH ×2 (08:44→20:39)
[2021-09-20] MEDS: ENOXAPARIN 40 MG/0.4 ML SYRINGE SQ SCH (08:48)
[2021-09-20] MEDS: DEXAMETHASONE SOD PHOSPHATE 10 MG/ML 1 ML VIAL IVP SCH (08:48)
[2021-09-20] MEDS: AMIODARONE 200 MG TAB PO SCH (08:49)
[2021-09-20] MEDS: levETIRAcetam IV 1,500 MG in SALINE 1 100ML.BAG IVPB SCH ×2 (10:02→20:39)
[2021-09-20] MEDS: ACETAMINOPHEN TAB 325 MG TAB PO PRN (10:42)
[2021-09-20 11:44] LABS: Glucose,Whole Blood 137 mg/dL (75-99)
--- NOTE | 2021-09-20 13:29 | P.PN ---
Subjective Progress Note Date: 09/20/21 Principal diagnosis: Acute COVID-19 pneumonia with acute hypoxic respiratory failure and altered mental status. This is a 51-year-old female patient was brought into because of an altered mental status. The patient was found by her brother was concerned about her mental status. The patient has poor baseline performance and functional status and more recently she wasn't able to take care of herself. She was feeling more lethargic and tired and based on all this, she was brought into the emergency department. In the ED, the patient was having seizures and tachycardia and she was altered and unresponsive. The patient was given IV Ativan. At the time of my evaluation, the patient was quite sedated. No tracheal evidence of a seizure activity and the patient was withdrawing and 4 extremities without any limitation. The patient furthermore was found to have significant abnormalities in her blood work. The patient also tested positive for COVID 19. In summary, the patient was found to have a sodium level LXIV, chloride of 116, FiO2 of 4.6, troponin of 0.3, and UA was abnormal highly suspicious for underlying urine checked infection. Urine drug screen was negative. At this point in time, the patient on IV fluids and the patient is receiving D5 water at the rate of 100 mL an hour. The patient was given a combination of vancomycin and aztreonam as empiric antibiotic coverage. The patient was also started on Decadron 6 mg IV every 12 hours. Chest x-ray showing a left perihilar and lower lobe pulmonary infiltration and the patient is currently on 6 L of oxygen by nasal cannula with a pulse of a 98%. She is in sinus tachycardia. Nevertheless, she has history of atrial fibrillation. She has been minimal, to coagulation with Eliquis and she was also taken amiodarone on outpatient basis. She is also known to have cardiomyopathy with an ejection fraction of 30-35%. On regular inspection, the patient looks quite debilitated. She has a body mass index of 19.7. Very poor oral hygiene and multiple decayed teeth. Her personal hygiene is also poor. 09/13/2021, the patient remains intubated on mechanical ventilator. She was intubated as the patient lost her left lung and there was complete atelectasis of the left lung due to mucous plugs. Bronchoscopy was done post intubation. Reexpansion of the left lung was achieved. Nevertheless, the left lung is infiltrated. Subsequently the patient went into ARDS. At this point in time, the patient is intubated on mechanical ventilator. She remains on a volume cycled mechanical ventilation. She is sedated with propofol running at 50 mcg/kg per minute and the patient is also on Nimbex running at 2 mcg/kg per minute. Hemodynamically, she is stable. On mechanical ventilator, she is an assist-control at the rate of 32 with a tidal volume of 300 and FiO2 of 70% with a PEEP of 20. Morning blood gases showed a pH of 7.21 with a pCO2 of 79 and pO2 of 136. Based on that, further adjustments on a mechanical ventilator with him. On today's chest x-ray, there is no evidence of pneumothorax. Left lung is infiltrated compared to the right and there is still some atelectatic changes and infiltration of the left lung base. The bronchoscopy and the lavage of the left lung was done. Cultures still pending. Urine cultures positive for gram- negative bacillus and the patient is still on a combination of Levaquin and clindamycin. The patient is also on Diflucan due to extensive oropharyngeal candidiasis was noted at a time of intubation. The patient was started on enteral feeding for nutritional support. She is currently receiving vitamin 1.2 at the rate of 20 mL an hour. IV fluids in the form of half-normal saline at the rate of 45 mL an hour. The patient has a white cell count of 17.7, hemoglobin is at 12.7, d-dimer is at 0.8, sodium is at 142, BUN is at 27 with a creatinine of 0.6. LDH level is 1009 and the CRP level is 25. Note that the LDH is lower compared to yesterday. No pressors for now. Urine output is adequate. No fever. No other significant events overnight. Patient was reevaluated today on 09/14/2021, patient remains intubated and mechanically ventilated, she is on assist control rate of 32, tidal volume of 300 FiO2 50%, PEEP 18. ABG showed a pO2 of 95 pCO2 of 82 pH of 7.25. Tidal volume was increased to 325, and PEEP was cut down to 14. Patient remains on propofol at 50 minute, Nimbex at 2 mcg/kg/m. IV fluid is 0.45 at 50 mL per ayah r, and 0.9 normal saline at 20 mL per hour. Patient is on enteral feeding, she is receiving vital 1.4 at 34/34. Patient has a right femoral triple-lumen catheter, right femoral arterial line, I was told that the patient has a large area of decubitus ulcer on her coccyx, hence I recommended consultation to 1 services. Antibiotics martinez she is on clindamycin, fluconazole, and she is also on Levaquin. Patient remains sedated and paralyzed, and I could not assess her mental status. WBC count is 17.4 hemoglobin 11.3, d-dimer is 0.91. Basic metabolic profile is normal renal profile is normal liver enzymes are borderline elevated LDH is 797 C-reactive protein is 23.2. Reevaluated today on 09/15/2021, patient is basically about the same, remains intubated and mechanically ventilated. Sedated and paralyzed, however I plan to discontinue Nimbex today. Chest x-ray showed mostly bibasilar airspace disease, patient is on a rate of 32, tidal volume 325 FiO2 50% and PEEP 14. She is still requiring propofol at 15 Nimbex at 2 and she is on feeding using vital 1.2 at 31 mL per hour. Her LDH today is down to 891 from 1509 and her C-reactive protein is down to 19 from 25 recently. Ventilatory-martinez I cut down her repeat to 10 from 14, Her on 50% for now. Her WBC count today is 11.3 hemoglobin is 10.0. ABG showed a pO2 of 93 pCO2 75 pH of 7.33 electrolytes are normal bicarb is 38 BUN is 53 creatinine 0.87. Overall the patient seems to be ventilating better, now that the PEEP is down to 10, I would discontinue Nimbex, and hopefully the patient could be maintained only on propofol and maybe adding fentanyl if needed. In the next 24 hours, I'm hoping that I could start addressing weaning constipation or at least weaning trials on a weaning mode of mechanical ventilation. Likely pressure support and CPAP if tolerated. Patient was reevaluated today on 09/16/21, remains in the ICU, intubated and mechanically ventilated. Patient is now off Nimbex, and she is on relatively low dose of propofol, which I plan to discontinue and address mental status, her Nimbex has been off for the last 24 hours, and propofol was discontinued earlier today, however so far the patient is not responding to any stimuli. She opens eyes only with deep painful stimuli. She is being followed by neurology. Patient is now on assist control rate of 32 tidal volume 325 FiO2 50% and PEEP is 10. I am keeping her FiO2 at 50% but I'm cutting down the PEEP down to 8. And I'm continuing to hold sedation. Her ABG today showed a pO2 of 96 pCO2 56 pH of 7.45. Her labs are basically unremarkable. CBC is relatively normal except for hemoglobin of 9.4. Sodium is normal at 140. Bicarb is 38. Renal profile is normal. And calcium is 7.2. Chest x-ray is showing left lower lobe pneumonia/atelectasis. Patient was seen by neurology today, still believe that the patient has toxic metabolic encephalopathy, post ictal state, and breakthrough seizures however the recommendation is to continue to hold sedation and if no improvement off sedation but later today, may consider CT of the brain. Patient was reevaluated today on 09/17/21, she remains in the ICU, intubated and mechanically ventilated. Patient is on assist control rate of 32 tidal volume of 325 FiO2 50% PEEP of 8. ABG showed a pO2 of 97 pCO2 49 pH of 7.42. Last night, the patient was completely off sedation, she became extremely agitated, restless, not making any purposeful movements, patient was not synchronous with the ventilator, and she was difficult to ventilate, hence the patient was given 1 dose of Nimbex, and placed back on propofol at 50 mcg/kg/m, it was increased even to as high as 75, patient remains asynchronous, and then Nimbex was given. Today the patient is off propofol, she is not waking up yet, patient is fully ventilated, and she is not arousable even to deep painful stimuli. She is not requiring any pressors, I have a feeling that I could potentially wean this patient if she wakes up, and she becomes unresponsive and appropriate. But that is yet to be determined, today I recommended that we start the patient on Precedex and discontinue propofol altogether. We will keep the patient on the present vent settings, we'll continue Precedex, and if she wakes up, we will could potentially wean and decide whether the patient could even be extubated. May see count today is 8.7 hemoglobin is 9.8. Electrodes are normal renal profile is normal. Reevaluated today on 09/18/21, patient remains in the ICU, intubated and mechanically ventilated. Patient is not making any significant neurological im provement. She has been off sedation for few days, yesterday we started the patient only on Precedex, and that's mostly to keep her synchronous with the ventilator. Again her mental status is basically about the same, and she is not showing much improvement. She opens eyes slightly to deep painful stimuli, but no purposeful movement and no responses to verbal stimuli. She is on assist control rate of 32 tidal volume 325 FiO2 was 50% and PEEP was 8 however I cut down her FiO2 to 45%. Patient is receiving enteral feeding, vital AF at 34 mL per hour. ABG today showed a pO2 of 107 pCO2 44 pH of 7.46. Basic metabolic profile is normal WBC count is 7.6 hemoglobin is 9.5. No significant metabolic abnormality to explain her encephalopathy at this point. Patient is still being followed by neurology on the case. Patient is still being treated for coronary virus infection, and UTI on admission secondary to E. coli. 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 No acute process was noted. Patient remains on seizure medications as per neurology including Keppra and Tegretol. EEG showed slowing/moderate degree of slowing suggestive of generalized cerebral dysfunction. This is seen with toxic metabolic encephalopathy. Reevaluated today on 09/19/21, patient remains in the ICU, intubated and mechanically ventilated, she is on assist control rate of 32 tidal volume of 325 FiO2 45% and PEEP of 8. Patient had to be placed on propofol yesterday at 50 mcg/kg/m, she is on IV fluid at 50 mL per hour. ABG showed a pO2 of 78 pCO2 of 47 pH of 7.44. Chest x-ray is basically about, no change. WBC count is 9.2 hemoglobin is 10.3. Electrolytes are normal. Again the patient had to be placed back on propofol because she was getting agitated, restless, and not synchronous with the ventilator yesterday. Remains on propofol today, and patient is not responding to any stimuli. Hence I'm keeping her on propofol, I believe the patient will eventually require tracheostomy and PEG tube placement unless CODE STATUS is changed to comfort care. Chest x-ray is basically showing no significant abnormalities. She does have mild pulmonary vascular congestion. Reevaluated today on 09/20/21, patient remains in the ICU, intubated and mechanically ventilated. She is on assist control rate of 32 tidal volume 325 FiO2 is 45%, PEEP is at 8. Patient is back on propofol, intermittently has been receiving Dilaudid, patient becomes at times agitated, and asynchronous with the ventilator, early in the week, I was able to hold sedation for a number of days, however the patient remained unresponsive to verbal stimuli, and apparently she had significant toxic metabolic encephalopathy. CT of the brain was nondiagnostic. Patient was seen by neurology on consultation, and still believe that this is a occipital metabolic encephalopathy picture. Patient is on propofol now at 50 mcg/kg/m, not requiring any other sedatives or narcotics. Patient has been feeding/enteral feeding vital AF at 34 mL per hour. ABG today showed a pO2 of 101 pCO2 47 pH of 7.44. Chest x-ray continues to show retrocardiac density likely atelectasis, otherwise no significant findings on the chest x-ray Objective - Vital Signs Vital signs: Vital Signs Temp 100.8 F H 09/20/21 13:00 Pulse 123 H 09/20/21 13:00 Resp 36 H 09/20/21 13:00 BP 99/71 09/20/21 09:00 Pulse Ox 94 L 09/20/21 13:00 Intake & Output 09/19/21 09/20/21 09/20/21 18:59 06:59 18:59 Intake Total 1677.2 1304.000 860.458 Output Total 2014 1425 825 Balance -337.8 -121.000 35.458 Weight 60.4 kg Intake: IV 936 636 371 Aztreonam 2 gm In Sodium 100 Chloride 0.9% 100 ml @ 33 .333 mls/hr IVPB Q8H ADDIE Rx#:[id number] Levofloxacin 500Mg-D5w 100 Pmx 500 mg In Dextrose/ Water 1 100ml.bag @ 100 mls/hr IVPB Q24H ADDIE Rx#: [id number] Pressure bag 36 36 21 Sodium Chloride 0.45% 1, 600 600 350 000 ml @ 50 mls/hr IV . Q20H [facility]IE Rx#:[id number] levETIRAcetam IV 1,000 mg 100 In Saline 1 100ml.bag @ 400 mls/hr IVPB Q12HR [facility]IE Rx#:[id number] Intake, IV Titration 183.2 200.000 191.458 Amount Aztreonam 2 gm In Sodium 100 Chloride 0.9% 100 ml @ 33 .3 mls/hr IVPB Q8HR [facility]IE Rx#:[id number] propofoL 1,000 mg In 183.2 200.000 91.458 Empty Bag 1 bag @ Titrate IV .Q0M ADDIE Rx#: [id number] Tube Feeding 408 408 238 Other 150 60 60 Output: Urine 2015 1425 825 Other: Voiding Method Indwelling Catheter Indwelling Catheter ABP, PAP, CO, CI - Last Documented Arterial Blood Pressure 95/65 - Exam -GENERAL: Revealed a 51-year-old female mechanically ventilated, on propofol, sedated, very synchronous with the ventilator. HEENT: Adelita, nonicteric, no neck masses, no JVD, endotracheal tube and orogastric tube are intact. CARDIOVASCULAR: S1 and S2 present. No murmurs, rubs, or gallops. PULMONARY: Symmetrical chest expansion crackles at the bases. ABDOMEN: Soft nontender no megaly no rebound no guarding. MUSCULOSKELETAL: No joint swelling or deformity. EXTREMITIES: No cyanosis, clubbing, or pedal edema. NEUROLOGICAL: Unresponsive to any deep painful stimuli. Except the open eyes at times SKIN: large coccygeal ulcer - Labs CBC & Chem 7: 09/20/21 03:20 09/20/21 03:20 Labs: Abnormal Lab Results - Last 24 Hours (Table) 09/19/21 09/19/21 09/20/21 Range/Units 17:53 23:23 03:20 WBC 12.8 H (3.8-10.6) k/uL RBC 3.50 L (3.80-5.40) m/uL Neutrophils # 11.6 H (1.3-7.7) k/uL Lymphocytes # 0.8 L (1.0-4.8) k/uL ABG pCO2 (35-45) mmHg ABG HCO3 (21-25) mmol/L ABG Total CO2 (19-24) mmol/L Carbon Dioxide (22-30) mmol/L BUN (7-17) mg/dL Glucose (74-99) mg/dL POC Glucose (mg/dL) 100 H 117 H (75-99) mg/dL Calcium (8.4-10.2) mg/dL AST (14-36) U/L ALT (4-34) U/L Total Protein (6.3-8.2) g/dL Albumin (3.5-5.0) g/dL 09/20/21 09/20/21 09/20/21 Range/Units 03:20 05:18 05:22 WBC (3.8-10.6) k/uL RBC (3.80-5.40) m/uL Neutrophils # (1.3-7.7) k/uL Lymphocytes # (1.0-4.8) k/uL ABG pCO2 47 H (35-45) mmHg ABG HCO3 32 H (21-25) mmol/L ABG Total CO2 33 H (19-24) mmol/L Carbon Dioxide 33 H (22-30) mmol/L BUN 35 H (7-17) mg/dL Glucose 132 H (74-99) mg/dL POC Glucose (mg/dL) 124 H (75-99) mg/dL Calcium 7.9 L (8.4-10.2) mg/dL AST 424 H (14-36) U/L ALT 115 H (4-34) U/L Total Protein 5.4 L (6.3-8.2) g/dL Albumin 2.4 L (3.5-5.0) g/dL 09/20/21 Range/Units 11:42 WBC (3.8-10.6) k/uL RBC (3.80-5.40) m/uL Neutrophils # (1.3-7.7) k/uL Lymphocytes # (1.0-4.8) k/uL ABG pCO2 (35-45) mmHg ABG HCO3 (21-25) mmol/L ABG Total CO2 (19-24) mmol/L Carbon Dioxide (22-30) mmol/L BUN (7-17) mg/dL Glucose (74-99) mg/dL POC Glucose (mg/dL) 137 H (75-99) mg/dL Calcium (8.4-10.2) mg/dL AST (14-36) U/L ALT (4-34) U/L Total Protein (6.3-8.2) g/dL Albumin (3.5-5.0) g/dL Microbiology - Last 24 Hours (Table) 09/16/21 21:25 Blood Culture - Preliminary Blood No Growth after 72 hours Assessment and Plan Assessment: Impression: Acute hypoxic respiratory failure secondary to COVID-19 pneumonia Altered mental status, acute toxic metabolic encephalopathy. No acute CVA noted on brain CT. Acute COVID-19 pneumonia Acute intravascular depletion with dehydration and electrolyte imbalance on her initial presentation. Resolved. History of seizure activity. Remains on seizure medications including Keppra and Tegretol. Previous history of pulmonary embolism, on long-term treatment with Eliquis. Paroxysmal atrial fibrillation Cardiomyopathy and LV dysfunction with ejection fraction of 30-35%. History of pacemaker implantation. History of saccular BEARING GRINDER aneurysm 4 mm Hypothyroidism Coronary artery disease History of CVA in 2007 History of recurrent E. coli urinary tract infection History of psoriasis Sacral /coccygeal decubitus ulcer Recommendation: Continue ventilatory support. Must seriously consider tracheostomy and PEG tube placement on this patient unless family decides to proceed with comfort care measures. Patient failed to show any purposeful responses to any stimuli off sedation. And she was off sedation for few days. Continue same ventilator settings. Continue supportive care measures Continue antibiotics, Levaquin and clindamycin Continue Lovenox 40 mg subcu for DVT Continue IV Decadron Continue Keppra And Tegretol. continue enteral feeding continue to monitor in the ICU Patient is critically ill, again I'm strongly recommending tracheostomy and PEG tube placement in this patient unless family decides to go with comfort care measures. Critical care time is over 30 minutes Time with Patient: Greater than 30
--- NOTE | 2021-09-20 13:36 | P.PN ---
Subjective Progress Note Date: 09/20/21 This is a pleasant 51 years old female with past medical history of Coronary Artery Disease, Heart Failure, CVA/TIA, Pulmonary Embolus (PE), Seizure Disorder, Last seizure 2009, CVA 2007 with L sided weakness arm and leg and has L foot drop, TIA 2018, cardiomyopathy, R PE and pneumothorax/pneumonia following leg fracture in 1994, gestational diabetes with all pregnancies , bilateral glaucoma with surgery, psoriasis in the past, UTIs. She is a status post Pacemaker, history of Bilateral eye surgery for glaucoma, Anxiety, Depression, Current every day smoker Patient presents because of altered mental status. Information was limited from the patient. It was obtained from the chart and medical staff. Also as per family patient was able to go to the bathroom, was more lethargic and tired over the last day. While in the emergency room focal mild seizure is noticed On admission patient had and fever of 101. She is tachypneic at 26-40, tachycardic 110-140, also she is hypoxic saturating 72% on room air Labs showing WBC of 10.5, hemoglobin of 16.3, platelet count of 197. INR 1.7. Sodium 164, creatinine 1.7, lactic acid elevated 4.6. Liver enzymes elevated with AST 202 and ALT 81. Bilirubin is normal at 1.3. Urine analysis is highly suspicious of infection Urine drug screen is negative Cash versus positive Chest x-ray showing left perihilar and left lower lobe area of infiltrate and small effusion correlates for pneumonia CT of the brain without contrast showing no intracranial hemorrhage, evidence of remote ischemic change. However there is vague low attenuation near the left thalamus and left cerebral peduncle. Acute ischemia in the differential diagnosis. Recommend stat MRI of brain with MRSA [place] [facility] [facility] [place] as clinically warranted. In the emergency room patient was started on aztreonam and IV vancomycin, Keppra and heparin drip 09/11/2021 Patient today was still in the ICU, she was very weak and obtunded, she will wake up to certain stabilized and moans, she does not follow commands she cannot, gait she moved both extremities symmetrically. R on she had collapse of her left lung cancer and she has to be intubated and repeat chest x-ray showing better. A of the left lung. She is tachypneic with a breathing rate 22, no more fever since yesterday. Her sodium improved down to 144 and she was started on normal saline, creatinine 1.1, Ejection fraction showed 30-35% which is slice worsened from 06/2021 where it was 35-40% She remains on dexamethasone, IV vancomycin and clindamycin, heparin drip, Keppra and normal saline at 75 mL/h 09/12/2021 Patient with respiratory failures and she was intubated and placed on mechanical ventilation with pulmonary/critical care team following her mostly. There is no more seizure-like activity noticed. She still tachypneic with a breathing rate of 32 blood pressure 100/70, she is needing FiO2 of 80% and PEEP of 20. She has no more fevers since admission. Urine culture is growing gram-negative bacilli. Sodium is 146, WBCs is increased at 16.5 K. PH showing acidosis with 7.1 and elevated pCO2 at 83. Chest x-ray showing left sided opacities with near full. A of the left lung. Patient kept on antibiotics in the form of clindamycin and Levaquin and fluconazole. Also she remains on dexamethasone, and so a heparin to Lovenox. Also continued on seizure medication 1500 mg twice a day and IV fluids per pulmonary team. Neurology team on the case 09/13/2021 Patient remains intubated and sedated with pulmonary/critical care team following her closely. Her PEEP is lower today to 18. She remains on FiO2 of 50%. She is tachypneic at 32 about blood pressure is controlled. Her inflammatory markers are increased to LDH of 1009 and CRP of 25.1. Bicarb is elevated at 31 WBC is 17.7, sodium improved to 142. Creatinine improved to 0.6. Chest x-ray showed improving left lung infiltrate. PH is improved slightly 7.2 with pCO2 is slightly better at 79. Urine culture is growing E. coli which is sensitive to the antibiotics. Currently patient is covered with clindamycin, Levaquin and fluconazole. Also she is on dexamethasone 6 mg, Keppra 1500 mg and half-normal saline at 50 m L per hour Anticoagulation switch from heparin drip and to Lovenox 09/14/2021 Patient still intubated and sedated on mechanical ventilation with pulmonary/critical care team following her closely and just her vent setting. Today her FiO2 of 55%, and she is tachypneic at 33 breath per minute. Labs showing stable findings with sodium 141, creatinine 0.8, liver enzymes slightly elevated, LDH slightly down at 797 and CRP 2-3.2. Same leukocytosis at 14.7. Her pH is 7.2 and carbon dioxide is 82. D-dimer mildly elevated at 0.9, just x-ray showing bilateral infiltrate with no significant change from prior. She remains on the same antibiotic of clindamycin, Levaquin, dexamethasone, Keppra 1500 mg and half normal saline at 50 mL/h 09/15/2021 Patient in the ICU intubated and sedated, with pulmonary/critical care team following closely. FiO2 still 50%, hemodynamically showing both staple blood pressure 101/40, patient is tachypneic more than 30 per minutes. PEEP is lower. wbc of 11.3, hemoglobin 9.4, sodium 140, creatinine 0.8. chest x-ray: mild worsening infiltrate in the left lobe. patient continued with the same treatment of clindamycin, levaquin, dexamethasone, keppra and she received 1 l of normal saline today. 09/16/2021 Patient is seen and evaluated and follow-up continues to be closely monitored in the ICU. Multiple medical consultations following including infectious disease, pulmonary roll panner, and neurology. Patient continues on mechanical vent with an FiO2 of 50% and PEEP is 10. Weaning is being continued and PEEP is being titrated down to 8. Patient continues with sedation holidays and very minimal propofol and patient is now off Nimbex and very minimal stimulus noted. Patient response to painful stimulus minimally. Plan is for possible CT of the brain r epeat this afternoon. Patient also being closely monitored for continued seizures of which she does have a past medical history of. Patient is also Covid positive and infectious disease is following and patient is maintained on clindamycin along with Levaquin. Chest x-ray today shows correlate for left lower lobe pneumonia versus atelectasis with possible associated effusion. 09/17/2021 Patient is seen in follow-up this morning closely monitored in the ICU. Neurology also following and patient is maintained on IV Keppra. Patient also continues on IV antibiotics in the form of aztreonam and clindamycin with infectious disease following. Patient urine culture showing E. coli. Chest x-r ay today shows chronic emphysematous changes with left basilar acute infiltrate and/or atelectasis and likely small left pleural effusion all redemonstrated with no significant change from previous day. Neurology following And okay to resume anticoagulant as there is no evidence of new intracranial process or hemorrhage. Patient is off sedation and continues to be unresponsive. 09/18/2021 Patient is evaluated again this morning and continues to be in the ICU on mechanical vent and being closely monitored. FiO2 is at 45% and PEEP is 8. Patient continues to be off sedation with no response for over 24 hours. Neurology following as well and have discussed overall prognosis with family and family discussing with other family members about CODE STATUS and treatment plan moving forward. Infectious disease also following and patient is maintained on IV Levaquin along with clindamycin and aztreonam and will continue. Urine cultures finalized showing E. coli and sputum culture preliminary is pending at this time. Labs: WBC is 7.6, hemoglobin is 9.5, platelets are 190, sodium 138, potassium 3.8, BUN 34, creatinine 0.76, calcium 7.7 09/19/2020 Patient evaluated today in the ICU on mechanical ventilation. Fi02 at 45% with a PEEP of 8. Propofol infusing, Nimbex and Levophed are currently on hold. Precedex discontinued. There has been no response, and mental status is not improving. Still no response to verbal stimuli. Patient is being followed closely by neurology for this and is on IV keppra and tegretol. EEG consistant with toxic metabolic encepholapthy. Repeat chest xray today shows similar opacities given patient rotation. Stable support tubes. Mild pulmonary vascular congestion correlate with serum BNP. Blood cultures negative, pending finalized, sputum negative so far. Labs reviewed today: WBC 9.2, hgb 10.3, sodium 138, potassium 3.8, BUN 33, Cr 0.76, glucose in the 110's, calcium 7.9, AST 250, ALT 78, Albumin 2.3. Vitals reviewed: Temp 97.4, HR 126, RR 44, Blood pressure 113/80, 96% oxygen saturation on mechanical ventilation. 09/20/2021 Patient evaluated in ICU on mechanical ventilation with an Fi02 of 45%, PEEP of 12. Chest xray today shows left lower lobe atelectasis versus pneumonia with similar findings as previous. BNP yesterday 12,500, however xray reviewed and does not appear to be showing heart failure. She is in negative fluid balance. Status was addressed with family by neurology who is awaiting a phone call back. White count 12.8, RBC 3.5, sodium 137 potassium 3.8, chloride 101, CO2 33, BUN 35, creatinine 0.68, blood sugars in the 120s, AST 424, ALT 115, alk phos 63. Running temps today 100.8, heart rate 123, respiratory rate 36, blood pressure 95/65, oxygen saturation of 93-94%. Blood pressures are on the softer side 88/55. Current infusions include propofol which has been resumed as patient has not shown any signs of neurological improvement while on a propofol break. Review of systems: Unable to obtain as patient continues to be on mechanical ventilation. All current medications reviewed and appropriate. Physical exam: GENERAL: The patient is intubated and sedated, FiO2 is 45% and PEEP is 8 HEENT: Pupils are round and equally reacting to light. EOMI. No scleral icterus. No conjunctival pallor. Normocephalic, atraumatic. No pharyngeal erythema. No thyromegaly. CARDIOVASCULAR: S1 and S2 present. No murmurs, rubs, or gallops. PULMONARY: Chest expansion even ABDOMEN: Soft, nontender, nondistended, normoactive bowel sounds. No palpable organomegaly. IDC in place, urine color is light catrachita MUSCULOSKELETAL: No joint swelling or deformity. EXTREMITIES: No cyanosis, clubbing, or pedal edema. NEUROLOGICAL: Gross neurological examination did not reveal any focal deficits. SKIN: No rashes. no petechiae. Assessment: Altered mental status could be metabolic/toxic encephalopathy, ruled out other intracranial lesions, and possibly secondary to seizure, no acute CVA on imaging Left lower lobe pneumonia, rule out aspiration pneumonia Acute urinary tract infection, present on admission with culture showing E. coli Sepsis secondary to UTI and pneumonia Breakthrough seizure Bilateral Covid pneumonia Acute hypoxic respiratory failure secondary to COVID-19 pneumonia with mechanical intubation Increased inflammatory markers elevated troponin, most likely type II ischemia. Rule out primary cardiac causes Cardiomyopathy with most recent EF of 30-35% Hypernatremia, improving Acute kidney injury, improved Mild elevated liver enzymes History of coronary artery disease History of pulmonary embolism History of seizure disorder, last seizure was in 2009 as per documents History 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 left foot drop History of glaucoma status post surgery Status post permanent pacemaker Nicotine dependence GI prophylaxis DVT prophylaxis Full code Plan: This is a pleasant 51 years old female who presents with altered mental status, pneumonia, UTI, possible stroke although most likely old infarcts noted on CT, seizure and positive for covid pneumonia Continue with Keppra and neurology following and patient has been off sedation and continues to be unresponsive. Sedation was resumed today. CT of the brain shows old right hemisphere infarct without change old left posterior frontal lobe cortical infarct without change and no acute abnormality. pulmonary and infectious disease following, continue the broad-spectrum antibiotics with fluconazole. Urine Cultures grown sensitive E. coli which is covered With aztreonam and clindamycin Continue with dexamethasone, vitamin and zinc supplements along with Lovenox Cardiology team evaluated the patient for elevated troponin, patient does not have A. fib per sheet [employer] sm[employer] Family aware of overall prognosis and would like to discuss further with other family members about CODE STATUS and patient is continued is full code for now. Will follow up with family members. Recommendations by pulmonary either to proceed with PEG/TRACH or code status changed and family to proceed with comfort care measures Overall Prognosis remains poor and extremely guarded Objective - Vital Signs Vital signs: Vital Signs Temp 100.8 F H 09/20/21 13:00 Pulse 123 H 09/20/21 13:00 Resp 36 H 09/20/21 13:00 BP 99/71 09/20/21 09:00 Pulse Ox 94 L 09/20/21 13:00 Intake & Output 09/19/21 09/20/21 09/20/21 18:59 06:59 18:59 Intake Total 1677.2 1304.000 860.458 Output Total 2014 1425 825 Balance -337.8 -121.000 35.458 Weight 60.4 kg Intake: IV 936 636 371 Aztreonam 2 gm In Sodium 100 Chloride 0.9% 100 ml @ 33 .333 mls/hr IVPB Q8H [facility] Rx#:[id number] Levofloxacin 500Mg-D5w 100 Pmx 500 mg In Dextrose/ Water 1 100ml.bag @ 100 mls/hr IVPB Q24H [facility] Rx#: [id number] Pressure bag 36 36 21 Sodium Chloride 0.45% 1, 600 600 350 000 ml @ 50 mls/hr IV . Q20H [facility] Rx#:[id number] levETIRAcetam IV 1,000 mg 100 In Saline 1 100ml.bag @ 400 mls/hr IVPB Q12HR [facility] Rx#:[id number] Intake, IV Titration 183.2 200.000 191.458 Amount Aztreonam 2 gm In Sodium 100 Chloride 0.9% 100 ml @ 33 .3 mls/hr IVPB Q8HR [facility] Rx#:[id number] propofoL 1,000 mg In 183.2 200.000 91.458 Empty Bag 1 bag @ Titrate IV .Q0M [facility] Rx#: [id number] Tube Feeding 408 408 238 Other 150 60 60 Output: Urine 2014 1425 825 Other: Voiding Method Indwelling Catheter Indwelling Catheter ABP, PAP, CO, CI - Last Documented Arterial Blood Pressure 95/65 - Labs CBC & Chem 7: 09/20/21 03:20 09/20/21 03:20 Labs: Abnormal Lab Results - Last 24 Hours (Table) 09/19/21 09/19/21 09/20/21 Range/Units 17:53 23:23 03:20 WBC 12.8 H (3.8-10.6) k/uL RBC 3.50 L (3.80-5.40) m/uL Neutrophils # 11.6 H (1.3-7.7) k/uL Lymphocytes # 0.8 L (1.0-4.8) k/uL ABG pCO2 (35-45) mmHg ABG HCO3 (21-25) mmol/L ABG Total CO2 (19-24) mmol/L Carbon Dioxide (22-30) mmol/L BUN (7-17) mg/dL Glucose (74-99) mg/dL POC Glucose (mg/dL) 100 H 117 H (75-99) mg/dL Calcium (8.4-10.2) mg/dL AST (14-36) U/L ALT (4-34) U/L Total Protein (6.3-8.2) g/dL Albumin (3.5-5.0) g/dL 09/20/21 09/20/21 09/20/21 Range/Units 03:20 05:18 05:22 WBC (3.8-10.6) k/uL RBC (3.80-5.40) m/uL Neutrophils # (1.3-7.7) k/uL Lymphocytes # (1.0-4.8) k/uL ABG pCO2 47 H (35-45) mmHg ABG HCO3 32 H (21-25) mmol/L ABG Total CO2 33 H (19-24) mmol/L Carbon Dioxide 33 H (22-30) mmol/L BUN 35 H (7-17) mg/dL Glucose 132 H (74-99) mg/dL POC Glucose (mg/dL) 124 H (75-99) mg/dL Calcium 7.9 L (8.4-10.2) mg/dL AST 424 H (14-36) U/L ALT 115 H (4-34) U/L Total Protein 5.4 L (6.3-8.2) g/dL Albumin 2.4 L (3.5-5.0) g/dL 09/20/21 Range/Units 11:42 WBC (3.8-10.6) k/uL RBC (3.80-5.40) m/uL Neutrophils # (1.3-7.7) k/uL Lymphocytes # (1.0-4.8) k/uL ABG pCO2 (35-45) mmHg ABG HCO3 (21-25) mmol/L ABG Total CO2 (19-24) mmol/L Carbon Dioxide (22-30) mmol/L BUN (7-17) mg/dL Glucose (74-99) mg/dL POC Glucose (mg/dL) 137 H (75-99) mg/dL Calcium (8.4-10.2) mg/dL AST (14-36) U/L ALT (4-34) U/L Total Protein (6.3-8.2) g/dL Albumin (3.5-5.0) g/dL Microbiology - Last 24 Hours (Table) 09/16/21 21:25 Blood Culture - Preliminary Blood No Growth after 72 hours
[2021-09-20] MEDS ORDERED: CISATRACURIUM 2 MG/ML 5 ML VIAL IV ONE (14:34)
[2021-09-20] MEDS ORDERED: ANIDULAFUNGIN 200 MG in SODIUM CHLORIDE 0.9% 200 ML IVPB ONE (16:22)
--- NOTE | 2021-09-20 16:22 | P.PN ---
Subjective Progress Note Date: 09/20/21 Principal diagnosis: Pneumonia pressure ulcer and multiple antibiotic allergies Patient is a 51-year-old female presenting to the hospital on September 10 for mental status changes patient did have a evidence of COVID-19 infection, with respiratory failure requiring intubation also with E. coli UTI and the patient did have multiple antibiotic allergies. On today's evaluation that is 09/20/2021, patient did have a low-grade fever of 100.9F this morning, the patient is hemodynamically stable not on any pressor support, the patient FiO2 is currently stable at 45%, no significant purulent secretions from the ET or diarrhea reported by the nursing staff, no other kaylin nges Objective - Vital Signs Vital signs: Vital Signs Temp 100.8 F H 09/20/21 13:00 Pulse 118 H 09/20/21 16:00 Resp 40 H 09/20/21 16:00 BP 99/71 09/20/21 09:00 Pulse Ox 90 L 09/20/21 16:00 Intake & Output 09/19/21 09/20/21 09/20/21 18:59 06:59 18:59 Intake Total 1677.2 1304.000 947.458 Output Total 2014 1425 875 Balance -337.8 -121.000 72.458 Weight 60.4 kg Intake: IV 936 636 424 Aztreonam 2 gm In Sodium 100 Chloride 0.9% 100 ml @ 33 .333 mls/hr IVPB Q8H [facility] Rx#:[id number] Levofloxacin 500Mg-D5w 100 Pmx 500 mg In Dextrose/ Water 1 100ml.bag @ 100 mls/hr IVPB Q24H [facility] Rx#: [id number] Pressure bag 36 36 24 Sodium Chloride 0.45% 1, 600 600 400 000 ml @ 50 mls/hr IV . Q20H [facility] Rx#:[id number] levETIRAcetam IV 1,000 mg 100 In Saline 1 100ml.bag @ 400 mls/hr IVPB Q12HR [facility] Rx#:[id number] Intake, IV Titration 183.2 200.000 191.458 Amount Aztreonam 2 gm In Sodium 100 Chloride 0.9% 100 ml @ 33 .3 mls/hr IVPB Q8HR [facility] Rx#:[id number] propofoL 1,000 mg In 183.2 200.000 91.458 Empty Bag 1 bag @ Titrate IV .Q0M COUNTS INCLUDE 234 BEDS AT [facility] Rx#: [id number] Tube Feeding 408 408 272 Other 150 60 60 Output: Urine 2014 1425 875 Other: Voiding Method Indwelling Catheter Indwelling Catheter Indwelling Catheter ABP, PAP, CO, CI - Last Documented Arterial Blood Pressure 116/67 - Exam GENERAL DESCRIPTION: Middle-aged male intubated on the vent, no distress. No tachypnea or accessory muscle of respiration use. LUNGS: Unlabored breathing. Decreased breath sound at the base. No wheeze or crackle. HEART: S1, S2, regular rate and rhythm. No loud murmur ABDOMEN: Soft, no tenderness , guarding or rigidity, no organomegaly EXTREMITIES: No edema of feet. - Labs CBC & Chem 7: 09/20/21 03:20 09/20/21 03:20 Labs: Abnormal Lab Results - Last 24 Hours (Table) 09/19/21 09/19/21 09/20/21 Range/Units 17:53 23:23 03:20 WBC 12.8 H (3.8-10.6) k/uL RBC 3.50 L (3.80-5.40) m/uL Neutrophils # 11.6 H (1.3-7.7) k/uL Lymphocytes # 0.8 L (1.0-4.8) k/uL ABG pCO2 (35-45) mmHg ABG HCO3 (21-25) mmol/L ABG Total CO2 (19-24) mmol/L Carbon Dioxide (22-30) mmol/L BUN (7-17) mg/dL Glucose (74-99) mg/dL POC Glucose (mg/dL) 100 H 117 H (75-99) mg/dL Calcium (8.4-10.2) mg/dL AST (14-36) U/L ALT (4-34) U/L Total Protein (6.3-8.2) g/dL Albumin (3.5-5.0) g/dL 09/20/21 09/20/21 09/20/21 Range/Units 03:20 05:18 05:22 WBC (3.8-10.6) k/uL RBC (3.80-5.40) m/uL Neutrophils # (1.3-7.7) k/uL Lymphocytes # (1.0-4.8) k/uL ABG pCO2 47 H (35-45) mmHg ABG HCO3 32 H (21-25) mmol/L ABG Total CO2 33 H (19-24) mmol/L Carbon Dioxide 33 H (22-30) mmol/L BUN 35 H (7-17) mg/dL Glucose 132 H (74-99) mg/dL POC Glucose (mg/dL) 124 H (75-99) mg/dL Calcium 7.9 L (8.4-10.2) mg/dL AST 424 H (14-36) U/L ALT 115 H (4-34) U/L Total Protein 5.4 L (6.3-8.2) g/dL Albumin 2.4 L (3.5-5.0) g/dL 09/20/21 Range/Units 11:42 WBC (3.8-10.6) k/uL RBC (3.80-5.40) m/uL Neutrophils # (1.3-7.7) k/uL Lymphocytes # (1.0-4.8) k/uL ABG pCO2 (35-45) mmHg ABG HCO3 (21-25) mmol/L ABG Total CO2 (19-24) mmol/L Carbon Dioxide (22-30) mmol/L BUN (7-17) mg/dL Glucose (74-99) mg/dL POC Glucose (mg/dL) 137 H (75-99) mg/dL Calcium (8.4-10.2) mg/dL AST (14-36) U/L ALT (4-34) U/L Total Protein (6.3-8.2) g/dL Albumin (3.5-5.0) g/dL Microbiology - Last 24 Hours (Table) 09/17/21 23:51 Gram Stain - Preliminary Sputum Sputum Culture - Preliminary Radha glabrata 09/16/21 21:25 Blood Culture - Preliminary Blood No Growth after 72 hours Assessment and Plan (1) Pneumonia Current Visit: Yes Status: Acute Code(s): J18.9 - PNEUMONIA, UNSPECIFIED ORGANISM SNOMED Code(s): 910757648 (2) Allergy to multiple antibiotics Current Visit: Yes Status: Acute Code(s): Z88.1 - ALLERGY STATUS TO OTHER ANTIBIOTIC AGENTS SNOMED Code(s): 726773123 (3) COVID-19 Current Visit: Yes Status: Acute Code(s): U07.1 - COVID-19 SNOMED Code(s): 849206557 Plan: 1-Patient with acute respiratory failure which is multifactorial in this patient who did have a covid19 pneumonia and a concern for possible secondary bacterial pneumonia patient With a new fever blood and sputum cultures were done and blood culture has been negative sputum showing Radha was more likely colonizer however underlying oropharyngeal candidiasis is not excluded, the patient is covered with Azactam 2 g every 8 hours . Will add Diflucan/eRAXIS and continue supportive care 2patient with a deep tissue injury to the sacral and upper back area no cellulitis, keep the area dry and off the pressure and dry Time with Patient: Less than 30
[2021-09-20] MEDS: SODIUM CHLORIDE 0.45% 1,000 ML IV SCH (16:56)
[2021-09-20 18:11] LABS: Glucose,Whole Blood 105 mg/dL (75-99)
[2021-09-20] MEDS: ATORVASTATIN 80 MG TAB PO SCH (20:39)
[2021-09-20] MEDS: NOREPINEPHRINE 32 MG in SODIUM CHLORIDE 0.9% 218 ML IV SCH (21:14)
[2021-09-20] MEDS: CISATRACURIUM 200 MG in SODIUM CHLORIDE 0.9% 180 ML IV SCH (21:14)
[2021-09-20 23:43] LABS: Glucose,Whole Blood 108 mg/dL (75-99)
[2021-09-21 04:38] LABS: Basophils % (A) 0 %; Eosinophils % (A) 0 %; HCT 30.4 % (34.0-46.0); Lymphocytes # (A) 1.2 k/uL (1.0-4.8); Lymphocytes % (A) 11 %; MCH 32.3 pg (25.0-35.0); MCHC 31.9 g/dL (31.0-37.0); MCV 101.3 fL (80.0-100.0); Macrocytosis Slight; Mean Platelet Volume 10.6; Monocytes # (A) 0.2 k/uL (0-1.0); Monocytes % (A) 2 %; Neutrophils # (A) 8.7 k/uL (1.3-7.7); Neutrophils % (A) 85 %; Platelet Count 261 k/uL (150-450); RBC 3.01 m/uL (3.80-5.40); RDW 14.3 % (11.5-15.5); WBC 10.2 k/uL (3.8-10.6)
[2021-09-21 04:51] LABS: HGB 9.7 gm/dL (11.4-16.0)
[2021-09-21 04:55] LABS: African American GFR (CKD) >90 (>60 ml/min/1.73 sqM); Anion Gap 3 mmol/L; Blood Urea Nitrogen 34 mg/dL (7-17); Calcium 7.7 mg/dL (8.4-10.2); Carbon Dioxide 32 mmol/L (22-30); Chloride 104 mmol/L (98-107); Glucose 121 mg/dL (74-99); Non-African American GFR(CKD) >90 (>60 ml/min/1.73 sqM); Potassium 3.5 mmol/L (3.5-5.1); Sodium 139 mmol/L (137-145)
[2021-09-21] MEDS: INSULIN ASPART (NovoLOG) 100 UNIT/ML VIAL SQ SCH ×4 (05:25→23:31)
[2021-09-21 05:34] LABS: Glucose,Whole Blood 116 mg/dL (75-99)
[2021-09-21 05:34] LABS: ABG Base Excess 9.5 mmol/L; ABG HCO3 34 mmol/L (21-25); ABG Oxygen Saturation 96.2 % (94-97); ABG PCO2 49 mmHg (35-45); ABG PH 7.45 (7.35-7.45); ABG PO2 91 mmHg (83-108); ABG TCO2 35 mmol/L (19-24); Allen Test Performed? Yes
[2021-09-21] MEDS: POTASSIUM BICARBONATE/CIT AC 20 MEQ TABLET.EFF NG-TUBE SCH ×2 (06:23→06:24)
[2021-09-21] MEDS: PANTOPRAZOLE 40 MG/10 ML VIAL IV SCH (08:10)
[2021-09-21] MEDS: CHOLECALCIFEROL 125 MCG (5000 IU) TABLET PO SCH (08:11)
[2021-09-21] MEDS: carBAMazepine 200 MG TAB PO SCH ×3 (08:11→21:14)
[2021-09-21] MEDS: CHLORHEXIDINE GLUCONATE 15 ML CUP MUCOUS MEM SCH ×2 (08:11→21:14)
[2021-09-21] MEDS: ENOXAPARIN 40 MG/0.4 ML SYRINGE SQ SCH (08:11)
[2021-09-21] MEDS: DEXAMETHASONE SOD PHOSPHATE 10 MG/ML 1 ML VIAL IVP SCH (08:11)
[2021-09-21] MEDS: AMIODARONE 200 MG TAB PO SCH (08:11)
[2021-09-21] MEDS: levETIRAcetam IV 1,500 MG in SALINE 1 100ML.BAG IVPB SCH ×2 (08:17→21:14)
--- NOTE | 2021-09-21 08:19 | XR ---
EXAMINATION TYPE: XR chest 1V portable DATE OF EXAM: 09/21/2021 Comparison: 09/20/2021 Clinical History: 51 year-old female respiratory failure Findings: Heart normal size. Hyperinflation. Focal retrocardiac and left basilar opacity is unchanged. Left ant erior chest wall AICD generator with right ventricular lead. Satisfactory ET and NG tubes. Impression: 1. COPD. 2. Continued focal basilar left lower lobe/retrocardiac consolidation or atelectasis..
[2021-09-21] MEDS: AZTREONAM 2 GM in SODIUM CHLORIDE 0.9% 100 ML IVPB SCH ×2 (08:29→16:30)
[2021-09-21 11:52] LABS: Glucose,Whole Blood 142 mg/dL (75-99)
[2021-09-21] MEDS: SODIUM CHLORIDE 0.45% 1,000 ML IV SCH (12:09)
--- NOTE | 2021-09-21 12:11 | P.PN ---
Subjective Progress Note Date: 09/21/21 Principal diagnosis: Respiratory failure. Reevaluated today on 09/18/21, patient remains in the ICU, intubated and mechanically ventilated. Patient is not making any significant neurological improvement. She has been off sedation for few days, yesterday we started the patient only on Precedex, and that's mostly to keep her synchronous with the ventilator. Again her mental status is basically about the same, and she is not showing much improvement. She opens eyes slightly to deep painful stimuli, but no purposeful movement and no responses to verbal stimuli. She is on assist control rate of 32 tidal volume 325 FiO2 was 50% and PEEP was 8 however I cut down her FiO2 to 45%. Patient is receiving enteral feeding, vital AF at 34 mL per hour. ABG today showed a pO2 of 107 pCO2 44 pH of 7.46. Basic metabolic profile is normal WBC count is 7.6 hemoglobin is 9.5. No significant metabolic abnormality to explain her encephalopathy at this point. Patient is still being followed by neurology on the case. Patient is still being treated for coronary virus infection, and UTI on admission secondary to E. coli. 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 No acute process was noted. Patient remains on seizure medications as per neurology including Keppra and Tegretol. EEG showed slowing/moderate degree of slowing suggestive of generalized cerebral dysfunction. This is seen with toxic metabolic encephalopathy. Reevaluated today on 09/19/21, patient remains in the ICU, intubated and mechanically ventilated, she is on assist control rate of 32 tidal volume of 325 FiO2 45% and PEEP of 8. Patient had to be placed on propofol yesterday at 50 mcg/kg/m, she is on IV fluid at 50 mL per hour. ABG showed a pO2 of 78 pCO2 of 47 pH of 7.44. Chest x-ray is basically about, no change. WBC count is 9.2 hemoglobin is 10.3. Electrolytes are normal. Again the patient had to be placed back on propofol because she was getting agitated, restless, and not syn chronous with the ventilator yesterday. Remains on propofol today, and patient is not responding to any stimuli. Hence I'm keeping her on propofol, I believe the patient will eventually require tracheostomy and PEG tube placement unless CODE STATUS is changed to comfort care. Chest x-ray is basically showing no significant abnormalities. She does have mild pulmonary vascular congestion. Reevaluated today on 09/20/21, patient remains in the ICU, intubated and mechanically ventilated. She is on assist control rate of 32 tidal volume 325 FiO2 is 45%, PEEP is at 8. Patient is back on propofol, intermittently has been receiving Dilaudid, patient becomes at times agitated, and asynchronous with the ventilator, early in the week, I was able to hold sedation for a number of days, however the patient remained unresponsive to verbal stimuli, and apparently she had significant toxic metabolic encephalopathy. CT of the brain was nondiagnostic. Patient was seen by neurology on consultation, and still believe that this is a occipital metabolic encephalopathy picture. Patient is on propofol now at 50 mcg/kg/m, not requiring any other sedatives or narcotics. Patient has been feeding/enteral feeding vital AF at 34 mL per hour. ABG today showed a pO2 of 101 pCO2 47 pH of 7.44. Chest x-ray continues to show retrocardiac density likely atelectasis, otherwise no significant findings on the chest x-ray Progress note dated 09/21/2021. This is a 51-year-old female, who was admitted to the hospital on September 10. She came in with mental status changes, sepsis, and hypernatremia. She came to the intensive care unit on September 10, and was intubated for respiratory failure on 09/11/2021. The patient did test positive for coronavirus. She remains on mechanical ventilator. The patient is on the volume assist control mode, rate 32, tidal volume 325, FiO2 45%, and PEEP of 8. Blood gases show pO2 of 91, pCO2 49, and pH is 7.45. The patient's getting half-normal saline at 50 mL an hour, propofol at 50 mcg/kg/m, and vital AF at 34 mL an hour, which is goal. White count 10.2, hemoglobin 9.7, hematocrit 30.4, and platelet count was normal. Sodium 139, potassium 3.5, chlorides 104, CO2 32, anion gap 3, BUN 34, and creatinine 0.65. Microbiologic studies show evidence of Escherichia coli in the urine from September 10, and presumptive staph aureus in the sputum from August 30 0. The chest x-ray shows left lower lobe atelectasis and/or infiltrates. The patient is currently on antifungals, and aztreonam. The infectious disease doctor is currently on the case. Objective - Vital Signs Vital signs: Vital Signs Temp 98.3 F 09/21/21 08:00 Pulse 115 H 09/21/21 10:00 Resp 38 H 09/21/21 10:00 BP 111/74 09/21/21 10:00 Pulse Ox 93 L 09/21/21 10:00 Intake & Output 09/20/21 09/21/21 09/21/21 18:59 06:59 18:59 Intake Total 6962.253 0704.620 551.93 Output Total 1275 1135 530 Balance 140.756 213.620 21.93 Weight 61.4 kg Intake: IV 636 636 379 .9NS 20 20 Aztreonam 2 gm In Sodium 100 Chloride 0.9% 100 ml @ 33 .3 mls/hr IVPB Q8HR ADDIE Rx#:[id number] Pressure bag 36 36 9 Sodium Chloride 0.45% 1, 600 600 150 000 ml @ 50 mls/hr IV . Q20H ADDIE Rx#:[id number] levETIRAcetam IV 1,500 mg 100 In Saline 1 100ml.bag @ 400 mls/hr IVPB Q12HR ADDIE Rx#:[id number] Intake, IV Titration 281.756 244.620 64.93 Amount Aztreonam 2 gm In Sodium 100 Chloride 0.9% 100 ml @ 33 .3 mls/hr IVPB Q8HR ADDIE Rx#:[id number] propofoL 1,000 mg In 181.756 244.620 64.93 Empty Bag 1 bag @ Titrate IV .Q0M ADDIE Rx#: [id number] Tube Feeding 408 408 78 Other 90 60 30 Output: Urine 1275 1135 530 Other: Voiding Method Indwelling Catheter Indwelling Catheter Indwelling Catheter # Bowel Movements 1 ABP, PAP, CO, CI - Last Documented Arterial Blood Pressure 149/61 - Exam No acute distress, currently sedated, with an orally placed endotracheal tube and NG tube. HEENT examination is grossly unremarkable. Neck supple. Full range of motion. No adenopathy thyromegaly or neck vein distention. Cardiovascular examination reveals regular rhythm rate. S1-S2 normal. No S3 or S4. No discernible murmur noted. Heart rate 115 bpm. Heart sounds are distant. Lungs reveal bilateral expiratory rhonchi and wheezes. No crackles. Breath sounds are equal bilaterally. Abdomen soft, without bowel sounds. No masses. Extremities are intact. No cyanosis or clubbing. Trace edema is noted. Skin is without rash or lesion. Neurologic examination cannot be assessed as the patient's currently sedated with propofol. - Labs CBC & Chem 7: 09/21/21 04:24 09/21/21 04:24 Labs: Abnormal Lab Results - Last 24 Hours (Table) 09/20/21 09/20/21 09/21/21 Range/Units 18:10 23:41 04:24 RBC 3.01 L (3.80-5.40) m/uL Hgb 9.7 L D (11.4-16.0) gm/dL Hct 30.4 L (34.0-46.0) % MCV 101.3 H (80.0-100.0) fL Neutrophils # 8.7 H (1.3-7.7) k/uL ABG pCO2 (35-45) mmHg ABG HCO3 (21-25) mmol/L ABG Total CO2 (19-24) mmol/L Carbon Dioxide (22-30) mmol/L BUN (7-17) mg/dL Glucose (74-99) mg/dL POC Glucose (mg/dL) 105 H 108 H (75-99) mg/dL Calcium (8.4-10.2) mg/dL 09/21/21 09/21/21 09/21/21 Range/Units 04:24 05:31 05:32 RBC (3.80-5.40) m/uL Hgb (11.4-16.0) gm/dL Hct (34.0-46.0) % MCV (80.0-100.0) fL Neutrophils # (1.3-7.7) k/uL ABG pCO2 49 H (35-45) mmHg ABG HCO3 34 H (21-25) mmol/L ABG Total CO2 35 H (19-24) mmol/L Carbon Dioxide 32 H (22-30) mmol/L BUN 34 H (7-17) mg/dL Glucose 121 H (74-99) mg/dL POC Glucose (mg/dL) 116 H (75-99) mg/dL Calcium 7.7 L (8.4-10.2) mg/dL 09/21/21 Range/Units 11:50 RBC (3.80-5.40) m/uL Hgb (11.4-16.0) gm/dL Hct (34.0-46.0) % MCV (80.0-100.0) fL Neutrophils # (1.3-7.7) k/uL ABG pCO2 (35-45) mmHg ABG HCO3 (21-25) mmol/L ABG Total CO2 (19-24) mmol/L Carbon Dioxide (22-30) mmol/L BUN (7-17) mg/dL Glucose (74-99) mg/dL POC Glucose (mg/dL) 142 H (75-99) mg/dL Calcium (8.4-10.2) mg/dL Microbiology - Last 24 Hours (Table) 09/17/21 23:51 Gram Stain - Preliminary Sputum Sputum Culture - Preliminary Radha glabrata Presumptive Staph aureus 09/16/21 21:25 Blood Culture - Preliminary Blood No Growth after 96 hours Assessment and Plan Assessment: Acute hypoxemic respiratory failure secondary to coronavirus associated pneumonia, status post intubation and mechanical ventilation on 09/11/2021. Acute mental status changes, secondary to toxic/metabolic encephalopathy. Dehydration, on admission, resolved. History of seizure disorder. Prior history of pulmonary embolism. Paroxysmal atrial fibrillation. Cardiomyopathy with ejection fraction of 30-35%. Status post pacemaker implantation. 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 Hypothyroidism. CAD. History of CVA in 2007. History of recurrent E. coli urinary tract infections. History of psoriasis. History of sacral/coccygeal decubitus ulcer. Plan: Plan dated 09/21/2021. Because of the patient's overall poor status, and the fact that she still is a full code, surgery will be consulted for possible tracheostomy and PEG tube placement. We will continue to follow make recommendations where appropriate. Again, prognosis is very poor. She remains on mechanical ventilator. She remains on appropriate antibiotics. Infectious diseases is following. We will continue to follow make recommendations where appropriate. Time with Patient: Greater than 30
--- NOTE | 2021-09-21 16:24 | P.GSCN ---
History of Present Illness Consult date: 09/21/21 History of present illness: CHIEF COMPLAINT: COVID-19 pneumonia HISTORY OF PRESENT ILLNESS: This is a 51-year-old female who was admitted hospital on September 10 with shortness of breath and evidence of COVID-19 pneumonia she also had mental status changes sepsis and hyponatremia. She was intubated on 09/11/2021 with respiratory failure. Patient remains in the ICU on mechanical ventilation. People date FiO2 45%. Surgical consult placed for tracheostomy and PEG tube placement PAST MEDICAL HISTORY: Coronary Artery Disease (CAD), Heart Failure, CVA/TIA, Eye Disorder, Pneumonia, Pulmonary Embolus (PE), Seizure Disorder, Skin Disorder,Last seizure 2009, CVA 2007 with L sided weakness arm and leg and has L foot drop, TIA 2018, cardiomyopathy, R PE and pneumothorax/pneumonia following leg fracture in 1994, gestational diabetes with all pregnancies (4), bilateral glaucoma with surgery, psoriasis in the past, UTIs. PAST SURGICAL HISTORY: Pacemaker MEDICATIONS: See list. ALLERGIES: See list. SOCIAL HISTORY: No illicit drug use. REVIEW OF SYSTEMS: Unable to obtain. Patient intubated and sedated PHYSICAL EXAM: VITAL SIGNS: Reviewed GENERAL: no acute distress. HEENT: Moist buccal mucosa. Head is atraumatic, normocephalic. No nasal drainage. ABDOMEN: Soft. Nondistended. NEUROLOGIC: Intubated and sedated LABORATORY DATA: WBC 10.2 hemoglobin 9.7 platelets 261 Sodium 139 potassium 3.5 and creatinine 0.65 Albumin 2.4 IMAGING: ASSESSMENT: 1. Acute hypoxic respiratory failure secondary to COVID-19 pneumonia requiring mechanical ventilation 2. Severe protein calorie malnutrition PLAN: -Patient scheduled for tracheostomy and PEG tube placement tomorrow, 09/22/[address] connell -Hold tube feedings after midnight -Hold Lovenox in a.m. Thank you for this consultation Physician Physical Education Department Chair note has been reviewed by physician. Signing provider agrees with the documented findings, assessment, and plan of care. 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 History of Any Multi-Drug Resistant Organisms: None Reported Past Surgical History: Pacemaker Additional Past Surgical History / Comment(s): Bilateral eye surgery for glaucoma Past Anesthesia/Blood Transfusion Reactions: No Reported Reaction Type of Cardiac Device: Permanent Pacemaker Device Placement Date:: 2012 Past Psychological History: Anxiety, Depression Smoking Status: Current every day smoker Past Alcohol Use History: Occasional Past Drug Use History: None Reported - Past Family History Father Family Medical History: Coronary Artery Disease (CAD), Myocardial Infarction (PR) Additional Family Medical History / Comment(s): Father is 75 yrs old. He had a silent PR. Mother Additional Family Medical History / Comment(s): Mother is at 32 yrs d/t cardiomyopathy Medications and Allergies Home Medications Medication Instructions Recorded Confirmed Type Atorvastatin Calcium [Lipitor] 80 mg PO HS 03/08/14 09/10/21 History levETIRAcetam [Keppra] 1,500 mg PO BID 03/22/17 09/10/21 History Gabapentin 600 mg PO TID 02/20/19 09/10/21 History Amiodarone [Cordarone] 200 mg PO DAILY 02/22/20 09/10/21 History carBAMazepine [TEGretol] 200 mg PO TID 02/22/20 09/10/21 History Apixaban [Eliquis] 5 mg PO BID 07/21/21 09/10/21 History Spironolactone [Aldactone] 25 mg PO DAILY 07/21/21 09/10/21 History Cholecalciferol [Vitamin D3 (125 125 mcg PO DAILY #30 tablet 07/22/21 09/10/21 Rx Mcg = 5000 Iu)] Allergies Allergy/AdvReac Type Severity Reaction Status Date / Time cephalexin monohydrate Allergy Rash/Hives Verified 09/10/21 11:26 [From Keflex] Penicillins Allergy Anaphylaxis Verified 09/10/21 11:26 Surgical - Exam Vital Signs Temp Pulse Resp BP Pulse Ox 101 F H 154 H 18 195/59 72 L 09/10/21 11:23 09/10/21 11:23 09/10/21 11:23 09/10/21 11:23 09/10/21 11:23 Results - Labs 09/21/21 04:24 09/21/21 04:24 Abnormal Lab Results - Last 24 Hours (Table) 09/20/21 09/20/21 09/21/21 Range/Units 18:10 23:41 04:24 RBC 3.01 L (3.80-5.40) m/uL Hgb 9.7 L D (11.4-16.0) gm/dL Hct 30.4 L (34.0-46.0) % MCV 101.3 H (80.0-100.0) fL Neutrophils # 8.7 H (1.3-7.7) k/uL ABG pCO2 (35-45) mmHg ABG HCO3 (21-25) mmol/L ABG Total CO2 (19-24) mmol/L Carbon Dioxide (22-30) mmol/L BUN (7-17) mg/dL Glucose (74-99) mg/dL POC Glucose (mg/dL) 105 H 108 H (75-99) mg/dL Calcium (8.4-10.2) mg/dL 09/21/21 09/21/21 09/21/21 Range/Units 04:24 05:31 05:32 RBC (3.80-5.40) m/uL Hgb (11.4-16.0) gm/dL Hct (34.0-46.0) % MCV (80.0-100.0) fL Neutrophils # (1.3-7.7) k/uL ABG pCO2 49 H (35-45) mmHg ABG HCO3 34 H (21-25) mmol/L ABG Total CO2 35 H (19-24) mmol/L Carbon Dioxide 32 H (22-30) mmol/L BUN 34 H (7-17) mg/dL Glucose 121 H (74-99) mg/dL POC Glucose (mg/dL) 116 H (75-99) mg/dL Calcium 7.7 L (8.4-10.2) mg/dL 09/21/21 Range/Units 11:50 RBC (3.80-5.40) m/uL Hgb (11.4-16.0) gm/dL Hct (34.0-46.0) % MCV (80.0-100.0) fL Neutrophils # (1.3-7.7) k/uL ABG pCO2 (35-45) mmHg ABG HCO3 (21-25) mmol/L ABG Total CO2 (19-24) mmol/L Carbon Dioxide (22-30) mmol/L BUN (7-17) mg/dL Glucose (74-99) mg/dL POC Glucose (mg/dL) 142 H (75-99) mg/dL Calcium (8.4-10.2) mg/dL Microbiology - Last 24 Hours (Table) 09/17/21 23:51 Gram Stain - Preliminary Sputum Sputum Culture - Preliminary Radha glabrata Presumptive Staph aureus 09/16/21 21:25 Blood Culture - Preliminary Blood No Growth after 96 hours Diabetes panel 09/21/21 Range/Units 04:24 Sodium 139 (137-145) mmol/L Potassium 3.5 (3.5-5.1) mmol/L Chloride 104 (98-107) mmol/L Carbon Dioxide 32 H (22-30) mmol/L BUN 34 H (7-17) mg/dL Creatinine 0.65 (0.52-1.04) mg/dL Glucose 121 H (74-99) mg/dL Calcium 7.7 L (8.4-10.2) mg/dL Calcium panel 09/21/21 Range/Units 04:24 Calcium 7.7 L (8.4-10.2) mg/dL Pituitary panel 09/21/21 Range/Units 04:24 Sodium 139 (137-145) mmol/L Potassium 3.5 (3.5-5.1) mmol/L Chloride 104 (98-107) mmol/L Carbon Dioxide 32 H (22-30) mmol/L BUN 34 H (7-17) mg/dL Creatinine 0.65 (0.52-1.04) mg/dL Glucose 121 H (74-99) mg/dL Calcium 7.7 L (8.4-10.2) mg/dL Adrenal panel 09/21/21 Range/Units 04:24 Sodium 139 (137-145) mmol/L Potassium 3.5 (3.5-5.1) mmol/L Chloride 104 (98-107) mmol/L Carbon Dioxide 32 H (22-30) mmol/L BUN 34 H (7-17) mg/dL Creatinine 0.65 (0.52-1.04) mg/dL Glucose 121 H (74-99) mg/dL Calcium 7.7 L (8.4-10.2) mg/dL
[2021-09-21] MEDS ORDERED: ANIDULAFUNGIN 100 MG in SODIUM CHLORIDE 0.9% 100 ML IVPB SCH (17:00)
[2021-09-21 17:45] LABS: Glucose,Whole Blood 104 mg/dL (75-99)
--- NOTE | 2021-09-21 18:41 | P.PN ---
Subjective Progress Note Date: 09/21/21 This is a pleasant 51 years old female with past medical history of Coronary Artery Disease, Heart Failure, CVA/TIA, Pulmonary Embolus (PE), Seizure Disorder, Last seizure 2009, CVA 2007 with L sided weakness arm and leg and has L foot drop, TIA 2018, cardiomyopathy, R PE and pneumothorax/pneumonia following leg fracture in 1994, gestational diabetes with all pregnancies , bilateral glaucoma with surgery, psoriasis in the past, UTIs. She is a status post Pacemaker, history of Bilateral eye surgery for glaucoma, Anxiety, Depression, Current every day smoker Patient presents because of altered mental status. Information was limited from the patient. It was obtained from the chart and medical staff. Also as per family patient was able to go to the bathroom, was more lethargic and tired over the last day. While in the emergency room focal mild seizure is noticed On admission patient had and fever of 101. She is tachypneic at 26-40, tachycardic 110-140, also she is hypoxic saturating 72% on room air Labs showing WBC of 10.5, hemoglobin of 16.3, platelet count of 197. INR 1.7. Sodium 164, creatinine 1.7, lactic acid elevated 4.6. Liver enzymes elevated with AST 202 and ALT 81. Bilirubin is normal at 1.3. Urine analysis is highly suspicious of infection Urine drug screen is negative Cash versus positive Chest x-ray showing left perihilar and left lower lobe area of infiltrate and small effusion correlates for pneumonia CT of the brain without contrast showing no intracranial hemorrhage, evidence of remote ischemic change. However there is vague low attenuation near the left thalamus and left cerebral peduncle. Acute ischemia in the differential diagnosis. Recommend stat MRI of brain with MRSA [facility] [facility] [place] as clinically warranted. In the emergency room patient was started on aztreonam and IV vancomycin, Keppra and heparin drip 09/11/2021 Patient today was still in the ICU, she was very weak and obtunded, she will wake up to certain stabilized and moans, she does not follow commands she cannot, gait she moved both extremities symmetrically. R on she had collapse of her left lung cancer and she has to be intubated and repeat chest x-ray showing better. A of the left lung. She is tachypneic with a breathing rate 22, no more fever since yesterday. Her sodium improved down to 144 and she was started on normal saline, creatinine 1.1, Ejection fraction showed 30-35% which is slice worsened from 06/2021 where it was 35-40% She remains on dexamethasone, IV vancomycin and clindamycin, heparin drip, Keppra and normal saline at 75 mL/h 09/12/2021 Patient with respiratory failures and she was intubated and placed on mechanical ventilation with pulmonary/critical care team following her mostly. There is no more seizure-like activity noticed. She still tachypneic with a breathing rate of 32 blood pressure 100/70, she is needing FiO2 of 80% and PEEP of 20. She has no more fevers since admission. Urine culture is growing gram-negative bacilli. Sodium is 146, WBCs is increased at 16.5 K. PH showing acidosis with 7.1 and elevated pCO2 at 83. Chest x-ray showing left sided opacities with near full. A of the left lung. Patient kept on antibiotics in the form of clindamycin and Levaquin and fluconazole. Also she remains on dexamethasone, and so a heparin to Lovenox. Also continued on seizure medication 1500 mg twice a day and IV fluids per pulmonary team. Neurology team on the case 09/13/2021 Patient remains intubated and sedated with pulmonary/critical care team following her closely. Her PEEP is lower today to 18. She remains on FiO2 of 50%. She is tachypneic at 32 about blood pressure is controlled. Her inflammatory markers are increased to LDH of 1009 and CRP of 25.1. Bicarb is elevated at 31 WBC is 17.7, sodium improved to 142. Creatinine improved to 0.6. Chest x-ray showed improving left lung infiltrate. PH is improved slightly 7.2 with pCO2 is slightly better at 79. Urine culture is growing E. coli which is sensitive to the antibiotics. Currently patient is covered with clindamycin, Levaquin and fluconazole. Also she is on dexamethasone 6 mg, Keppra 1500 mg and half-normal saline at 50 mL per hour Anticoagulation switch from heparin drip and to Lovenox 09/14/2021 Patient still intubated and sedated on mechanical ventilation with pulmonary/critical care team following her closely and just her vent setting. Today her FiO2 of 55%, and she is tachypneic at 33 breath per minute. Labs showing stable findings with sodium 141, creatinine 0.8, liver enzymes slightly elevated, LDH slightly down at 797 and CRP 2-3.2. Same leukocytosis at 14.7. Her pH is 7.2 and carbon dioxide is 82. D-dimer mildly elevated at 0.9, just x-ray showing bilateral infiltrate with no significant change from prior. She remains on the same antibiotic of clindamycin, Levaquin, dexamethasone, Keppra 1500 mg and half normal saline at 50 mL/h 09/15/2021 Patient in the ICU intubated and sedated, with pulmonary/critical care team following closely. FiO2 still 50%, hemodynamically showing both staple blood pressure 101/40, patient is tachypneic more than 30 per minutes. PEEP is lower. wbc of 11.3, hemoglobin 9.4, sodium 140, creatinine 0.8. chest x-ray: mild worsening infiltrate in the left lobe. patient continued with the same treatment of clindamycin, levaquin, dexamethasone, keppra and she received 1 l of normal saline today. 09/16/2021 Patient is seen and evaluated and follow-up continues to be closely monitored in the ICU. Multiple medical consultations following including infectious disease, pulmonary gi physician, and neurology. Patient continues on mechanical vent with an FiO2 of 50% and PEEP is 10. Weaning is being continued and PEEP is being titrated down to 8. Patient continues with sedation holidays and very minimal propofol and patient is now off Nimbex and very minimal stimulus noted. Patient response to painful stimulus minimally. Plan is for possible CT of the brain repeat this afternoon. Patient also being closely monitored for continued seizures of which she does have a past medical history of. Patient is also Covid positive and infectious disease is following and patient is maintained on clindamycin along with Levaquin. Chest x-ray today shows correlate for left lower lobe pneumonia versus atelectasis with possible associated effusion. 09/17/2021 Patient is seen in follow-up this morning closely monitored in the ICU. Neurology also following and patient is maintained on IV Keppra. Patient also continues on IV antibiotics in the form of aztreonam and clindamycin with infectious disease following. Patient urine culture showing E. coli. Chest x- ray today shows chronic emphysematous changes with left basilar acute infiltrate and/or atelectasis and likely small left pleural effusion all redemonstrated with no significant change from previous day. Neurology following And okay to resume anticoagulant as there is no evidence of new intracranial process or hemorrhage. Patient is off sedation and continues to be unresponsive. 09/18/2021 Patient is evaluated again this morning and continues to be in the ICU on mechanical vent and being closely monitored. FiO2 is at 45% and PEEP is 8. Patient continues to be off sedation with no response for over 24 hours. Neurology following as well and have discussed overall prognosis with family and family discussing with other family members about CODE STATUS and treatment plan moving forward. Infectious disease also following and patient is maintained on IV Levaquin along with clindamycin and aztreonam and will continue. Urine cultures finalized showing E. coli and sputum culture preliminary is pending at this time. 09/19/2020 Patient evaluated today in the ICU on mechanical ventilation. Fi02 at 45% with a PEEP of 8. Propofol infusing, Nimbex and Levophed are currently on hold. Pr ecedex discontinued. There has been no response, and mental status is not improving. Still no response to verbal stimuli. Patient is being followed closely by neurology for this and is on IV keppra and tegretol. EEG consistant with toxic metabolic encepholapthy. Repeat chest xray today shows similar opacities given patient rotation. Stable support tubes. Mild pulmonary vascular congestion correlate with serum BNP. Blood cultures negative, pending finalized, sputum negative so far. Labs reviewed today: WBC 9.2, hgb 10.3, sodium 138, potassium 3.8, BUN 33, Cr 0.76, glucose in the 110's, calcium 7.9, AST 250, ALT 78, Albumin 2.3. Vitals reviewed: Temp 97.4, HR 126, RR 44, Blood pressure 113/80, 96% oxygen saturation on mechanical ventilation. 09/20/2021 Patient evaluated in ICU on mechanical ventilation with an Fi02 of 45%, PEEP of 12. Chest xray today shows left lower lobe atelectasis versus pneumonia with similar findings as previous. BNP yesterday 12,500, however xray reviewed and d oes not appear to be showing heart failure. She is in negative fluid balance. Status was addressed with family by neurology who is awaiting a phone call back. White count 12.8, RBC 3.5, sodium 137 potassium 3.8, chloride 101, CO2 33, BUN 35, creatinine 0.68, blood sugars in the 120s, AST 424, ALT 115, alk phos 63. Running temps today 100.8, heart rate 123, respiratory rate 36, blood pressure 95/65, oxygen saturation of 93-94%. Blood pressures are on the softer side 88/55. Current infusions include propofol which has been resumed as patient has not shown any signs of neurological improvement while on a propofol break. 09/21/2021 Patient is seen in follow up today and continues to be on mechanical vent with an FI02 of 45% with a peep of 8 and multiple medical consultations following. Ch est xray similar from previous with copd and continued focal basilar left lower lobe retrocardiac consolidation or atelectasis. Patient is on propofol and general surgery has been consulted for peg and trach placement. Plan for surgery is tomorrow. Review of systems: Unable to obtain as patient continues to be on mechanical ventilation and sedated Labs: WBC is 10.2, hemoglobin is 9.7, platelets are 261, sodium 139, potassium 3.5, BUN 34, creatinine 0.65, calcium 7.7 Active Medications Acetaminophen (Acetaminophen Tab 325 Mg Tab) 650 mg PO Q6HR PRN PRN Reason: Fever and/ or Pain Last Admin: 09/20/21 10:42 Dose: 650 mg Documented by: Amiodarone HCl (Amiodarone 200 Mg Tab) 200 mg PO DAILY [facility] Last Admin: 09/21/21 08:11 Dose: 200 mg Documented by: Artificial Tears (Artificial Tears-Hypromellose Drops 15 Ml Btl) 1 drops BOTH EYES QID PRN PRN Reason: Dry Eye(s) Last Admin: 09/16/21 08:58 Dose: 1 drops Documented by: Atorvastatin Calcium (Atorvastatin 80 Mg Tab) 80 mg PO HS [facility] Last Admin: 09/20/21 20:39 Dose: 80 mg Documented by: Carbamazepine (Carbamazepine 200 Mg Tab) 200 mg PO TID [facility] Last Admin: 09/21/21 16:30 Dose: 200 mg Documented by: Chlorhexidine Gluconate (Chlorhexidine Gluconate 15 Ml Cup) 15 ml MUCOUS MEM BID [facility] Last Admin: 09/21/21 08:11 Dose: 15 ml Documented by: Cholecalciferol (Cholecalciferol 125 Mcg (5000 Iu) Tablet) 125 mcg PO DAILY [facility] Last Admin: 09/21/21 08:11 Dose: 125 mcg Documented by: Dexamethasone Sodium Phosphate (Dexamethasone Sod Phosphate 10 Mg/Ml 1 Ml Vial) 6 mg IVP DAILY [facility] Last Admin: 09/21/21 08:11 Dose: 6 mg Documented by: Enoxaparin Sodium (Enoxaparin 40 Mg/0.4 Ml Syringe) 40 mg SQ DAILY [facility] Last Admin: 09/21/21 08:11 Dose: 40 mg Documented by: Hydromorphone HCl (Hydromorphone 1 Mg/Ml 1 Ml Syringe) 1 mg IVP Q2H PRN PRN Reason: Pain Last Admin: 09/20/21 20:39 Dose: 1 mg Documented by: Levetiracetam 1,500 mg/ IV (Solution) 100 mls @ 400 mls/hr IVPB Q12HR [facility] Last Admin: 09/21/21 08:17 Dose: 400 mls/hr Documented by: Sodium Chloride (Saline 0.45%) 1,000 mls @ 50 mls/hr IV .Q20H [facility] Last Admin: 09/21/21 12:09 Dose: 50 mls/hr Documented by: Aztreonam 2 gm/ Sodium (Chloride) 100 mls @ 33.3 mls/hr IVPB Q8HR [facility]; Protocol Last Admin: 09/21/21 16:30 Dose: 33.3 mls/hr Documented by: Propofol 1,000 mg/ IV Solution 100 mls @ 0 mls/hr IV .Q0M [facility]; Protocol Last Titration: 09/21/21 15:43 Dose: 45 mcg/kg/min, 16.578 mls/hr Documented by: Anidulafungin 100 mg/ Sodium (Chloride) 100 mls @ 84 mls/hr IVPB DAILY@1700 [facility] Last Admin: 09/21/21 16:29 Dose: 84 mls/hr Documented by: Insulin Aspart (Insulin Aspart (Novolog) 100 Unit/Ml Vial) 0 unit SQ Q6H [facility]; Protocol Last Admin: 09/21/21 17:58 Dose: Not Given Documented by: Miscellaneous Information (Potassium Replacement Protocol 1 Each Misc) 1 each MISCELLANE DAILY PRN; Protocol PRN Reason: Per Protocol Naloxone HCl (Naloxone 0.4 Mg/Ml 1 Ml Vial) 0.2 mg IV Q2M PRN PRN Reason: Opioid Reversal Pantoprazole Sodium (Pantoprazole 40 Mg/10 Ml Vial) 40 mg IV DAILY [facility] Last Admin: 09/21/21 08:10 Dose: 40 mg Documented by: Physical exam: GENERAL: The patient is intubated and sedated, FiO2 is 45% and PEEP is 8 HEENT: Pupils are round and equally reacting to light. EOMI. No scleral icterus. No conjunctival pallor. Normocephalic, atraumatic. No pharyngeal erythema. No thyromegaly. CARDIOVASCULAR: S1 and S2 present. No murmurs, rubs, or gallops. PULMONARY: Chest is clear to auscultation, no wheezing or crackles. ABDOMEN: Soft, nontender, nondistended, normoactive bowel sounds. No palpable organomegaly. MUSCULOSKELETAL: No joint swelling or deformity. EXTREMITIES: No cyanosis, clubbing, or pedal edema. NEUROLOGICAL: unresponsive, remains sedated SKIN: No rashes. no petechiae. Assessment: Altered mental status could be metabolic/toxic encephalopathy, ruled out other intracranial lesions, and possibly secondary to seizure Left lower lobe pneumonia, rule out aspiration pneumonia Acute urinary tract infection, present on admission with culture showing E. coli Sepsis secondary to UTI and pneumonia Breakthrough seizure Bilateral Covid pneumonia Acute hypoxic respiratory failure secondary to COVID-19 pneumonia Increased inflammatory markers elevated troponin, most likely type II ischemia. Rule out primary cardiac causes Cardiomyopathy with most recent EF of 30-35% Hypernatremia, improving Acute kidney injury, improved Mild elevated liver enzymes History of coronary artery disease History of pulmonary embolism History of seizure disorder, last seizure was in 2009 as per documents History 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 left foot drop History of glaucoma status post surgery Status post permanent pacemaker Nicotine dependence GI prophylaxis DVT prophylaxis Full code Plan: This is a pleasant 51 years old female who presents with altered mental status, pneumonia, UTI, possible stroke although most likely old infarcts noted on CT, seizure and positive for covid pneumonia Continue with Keppra and neurology following and patient has been off sedation and continues to be unresponsive. CT of the brain shows old right hemisphere infarct without change old left posterior frontal lobe cortical infarct without change and no acute abnormality. Patient is currently back on Propofol pulmonary and infectious disease following, continue the broad-spectrum antibiotics with fluconazole. Urine Cultures grown sensitive E. coli which is covered With aztreonam Continue with dexamethasone, vitamin and zinc supplements along with Lovenox Cardiology team evaluated the patient for elevated troponin, patient does not have A. 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 General surgery consulted and plan is for placement tomorrow. Overall Prognosis remains poor and extremely guarded Objective - Vital Signs Vital signs: Vital Signs Temp 98.3 F 09/21/21 08:00 Pulse 116 H 09/21/21 08:00 Resp 39 H 09/21/21 08:00 BP 125/75 09/21/21 07:00 Pulse Ox 95 09/21/21 08:00 Intake & Output 09/20/21 09/21/21 09/21/21 18:59 06:59 18:59 Intake Total 4997.666 7814.620 217 Output Total 1275 1135 300 Balance 140.756 213.620 -83 Weight 61.4 kg Intake: IV 636 636 153 Pressure bag 36 36 3 Sodium Chloride 0.45% 1, 600 600 50 000 ml @ 50 mls/hr IV . Q20H [facility] Rx#:[id number] levETIRAcetam IV 1,500 mg 100 In Saline 1 100ml.bag @ 400 mls/hr IVPB Q12HR [facility] Rx#:[id number] Intake, IV Titration 281.756 244.620 Amount Aztreonam 2 gm In Sodium 100 Chloride 0.9% 100 ml @ 33 .3 mls/hr IVPB Q8HR [facility] Rx#:[id number] propofoL 1,000 mg In 181.756 244.620 Empty Bag 1 bag @ Titrate IV .Q0M [facility] Rx#: [id number] Tube Feeding 408 408 34 Other 90 60 30 Output: Urine 1275 1135 300 Other: Voiding Method Indwelling Catheter Indwelling Catheter # Bowel Movements 1 ABP, PAP, CO, CI - Last Documented Arterial Blood Pressure 109/48 - Labs CBC & Chem 7: 09/21/21 04:24 09/21/21 04:24 Labs: Abnormal Lab Results - Last 24 Hours (Table) 09/20/21 09/20/21 09/20/21 Range/Units 11:42 18:10 23:41 RBC (3.80-5.40) m/uL Hgb (11.4-16.0) gm/dL Hct (34.0-46.0) % MCV (80.0-100.0) fL Neutrophils # (1.3-7.7) k/uL ABG pCO2 (35-45) mmHg ABG HCO3 (21-25) mmol/L ABG Total CO2 (19-24) mmol/L Carbon Dioxide (22-30) mmol/L BUN (7-17) mg/dL Glucose (74-99) mg/dL POC Glucose (mg/dL) 137 H 105 H 108 H (75-99) mg/dL Calcium (8.4-10.2) mg/dL 09/21/21 09/21/21 09/21/21 Range/Units 04:24 04:24 05:31 RBC 3.01 L (3.80-5.40) m/uL Hgb 9.7 L D (11.4-16.0) gm/dL Hct 30.4 L (34.0-46.0) % MCV 101.3 H (80.0-100.0) fL Neutrophils # 8.7 H (1.3-7.7) k/uL ABG pCO2 49 H (35-45) mmHg ABG HCO3 34 H (21-25) mmol/L ABG Total CO2 35 H (19-24) mmol/L Carbon Dioxide 32 H (22-30) mmol/L BUN 34 H (7-17) mg/dL Glucose 121 H (74-99) mg/dL POC Glucose (mg/dL) (75-99) mg/dL Calcium 7.7 L (8.4-10.2) mg/dL 09/21/21 Range/Units 05:32 RBC (3.80-5.40) m/uL Hgb (11.4-16.0) gm/dL Hct (34.0-46.0) % MCV (80.0-100.0) fL Neutrophils # (1.3-7.7) k/uL ABG pCO2 (35-45) mmHg ABG HCO3 (21-25) mmol/L ABG Total CO2 (19-24) mmol/L Carbon Dioxide (22-30) mmol/L BUN (7-17) mg/dL Glucose (74-99) mg/dL POC Glucose (mg/dL) 116 H (75-99) mg/dL Calcium (8.4-10.2) mg/dL Microbiology - Last 24 Hours (Table) 09/17/21 23:51 Gram Stain - Preliminary Sputum Sputum Culture - Preliminary Radha glabrata Presumptive Staph aureus 09/16/21 21:25 Blood Culture - Preliminary Blood No Growth after 96 hours
[2021-09-21] MEDS: ATORVASTATIN 80 MG TAB PO SCH (21:14)
[2021-09-21] MEDS ORDERED: VANCOMYCIN IV PER PHARMACY 1 EACH MISC MISCELLANE PRN (21:22)
--- NOTE | 2021-09-21 21:25 | P.PN ---
Subjective Progress Note Date: 09/21/21 Principal diagnosis: Pneumonia pressure ulcer and multiple antibiotic allergies Patient is a 51-year-old female presenting to the hospital on September 10 for mental status changes patient did have a evidence of COVID-19 infection, with respiratory failure requiring intubation also with E. coli UTI and the patient did have multiple antibiotic allergies. On today's evaluation that is 09/21/2021, patient did have a low-grade fever of 100.1F this morning, the patient is hemodynamically stable not requiring any pressor support, the patient FiO2 is currently stable at 45%, no significant purulent secretions for the the ET or diarrhea reported by the nursing staff Objective - Vital Signs Vital signs: Vital Signs Temp 100.1 F H 09/21/21 16:00 Pulse 109 H 09/21/21 19:00 Resp 36 H 09/21/21 19:00 BP 112/72 09/21/21 19:00 Pulse Ox 95 09/21/21 19:00 Intake & Output 09/21/21 09/21/21 09/22/21 06:59 18:59 06:59 Intake Total 2118.245 3376.158 119 Output Total 1135 1755 100 Balance 213.620 -25.842 19 Weight 61.4 kg 61.4 kg Intake: IV 636 1063 73 .9NS 20 160 20 Anidulafungin 100 mg In 100 Sodium Chloride 0.9% 100 ml @ 84 mls/hr IVPB DAILY @1700 [facility] Rx#:[id number] Aztreonam 2 gm In Sodium 200 Chloride 0.9% 100 ml @ 33 .3 mls/hr IVPB Q8HR [facility] Rx#:[id number] Pressure bag 36 33 3 Sodium Chloride 0.45% 1, 600 470 50 000 ml @ 50 mls/hr IV . Q20H [facility] Rx#:[id number] levETIRAcetam IV 1,500 mg 100 In Saline 1 100ml.bag @ 400 mls/hr IVPB Q12HR [facility] Rx#:[id number] Intake, IV Titration 244.620 220.158 Amount propofoL 1,000 mg In 244.620 220.158 Empty Bag 1 bag @ Titrate IV .Q0M [facility] Rx#: [id number] Tube Feeding 408 386 46 Other 60 60 Output: Urine 1135 1755 100 Other: Voiding Method Indwelling Catheter Indwelling Catheter # Bowel Movements 1 ABP, PAP, CO, CI - Last Documented Arterial Blood Pressure 117/57 - Exam GENERAL DESCRIPTION: Middle-aged male intubated on the vent, no distress. No tachypnea or accessory muscle of respiration use. LUNGS: Unlabored breathing. Decreased breath sound at the base. No wheeze or crackle. HEART: S1, S2, regular rate and rhythm. No loud murmur ABDOMEN: Soft, no tenderness , guarding or rigidity, no organomegaly EXTREMITIES: No edema of feet. - Labs CBC & Chem 7: 09/21/21 04:24 09/21/21 04:24 Labs: Abnormal Lab Results - Last 24 Hours (Table) 09/20/21 09/21/21 09/21/21 Range/Units 23:41 04:24 04:24 RBC 3.01 L (3.80-5.40) m/uL Hgb 9.7 L D (11.4-16.0) gm/dL Hct 30.4 L (34.0-46.0) % MCV 101.3 H (80.0-100.0) fL Neutrophils # 8.7 H (1.3-7.7) k/uL ABG pCO2 (35-45) mmHg ABG HCO3 (21-25) mmol/L ABG Total CO2 (19-24) mmol/L Carbon Dioxide 32 H (22-30) mmol/L BUN 34 H (7-17) mg/dL Glucose 121 H (74-99) mg/dL POC Glucose (mg/dL) 108 H (75-99) mg/dL Calcium 7.7 L (8.4-10.2) mg/dL 09/21/21 09/21/21 09/21/21 Range/Units 05:31 05:32 11:50 RBC (3.80-5.40) m/uL Hgb (11.4-16.0) gm/dL Hct (34.0-46.0) % MCV (80.0-100.0) fL Neutrophils # (1.3-7.7) k/uL ABG pCO2 49 H (35-45) mmHg ABG HCO3 34 H (21-25) mmol/L ABG Total CO2 35 H (19-24) mmol/L Carbon Dioxide (22-30) mmol/L BUN (7-17) mg/dL Glucose (74-99) mg/dL POC Glucose (mg/dL) 116 H 142 H (75-99) mg/dL Calcium (8.4-10.2) mg/dL 09/21/21 Range/Units 17:44 RBC (3.80-5.40) m/uL Hgb (11.4-16.0) gm/dL Hct (34.0-46.0) % MCV (80.0-100.0) fL Neutrophils # (1.3-7.7) k/uL ABG pCO2 (35-45) mmHg ABG HCO3 (21-25) mmol/L ABG Total CO2 (19-24) mmol/L Carbon Dioxide (22-30) mmol/L BUN (7-17) mg/dL Glucose (74-99) mg/dL POC Glucose (mg/dL) 104 H (75-99) mg/dL Calcium (8.4-10.2) mg/dL Microbiology - Last 24 Hours (Table) 09/17/21 23:51 Gram Stain - Preliminary Sputum Sputum Culture - Preliminary Radha glabrata Presumptive Staph aureus 09/16/21 21:25 Blood Culture - Preliminary Blood No Growth after 96 hours Assessment and Plan (1) Pneumonia Current Visit: Yes Status: Acute Code(s): J18.9 - PNEUMONIA, UNSPECIFIED ORGANISM SNOMED Code(s): 998394419 (2) Allergy to multiple antibiotics Current Visit: Yes Status: Acute Code(s): Z88.1 - ALLERGY STATUS TO OTHER ANTIBIOTIC AGENTS SNOMED Code(s): 621918836 (3) COVID-19 Current Visit: Yes Status: Acute Code(s): U07.1 - COVID-19 SNOMED Code(s): 685454636 Plan: 1-Patient with acute respiratory failure which is multifactorial in this patient who did have a covid19 pneumonia and a concern for possible secondary bacterial pneumonia patient With a new fever blood and sputum cultures were done and blood culture has been negative sputum showing Radha was more likely colonizer however underlying oropharyngeal candidiasis is not excluded, the patient sputum is also showing Streptococcus aureus patient did have a penicillin and cephalosporin ALLERGY we will add vancomycin and is no gram-negative discontinue Azactam 2patient with a deep tissue injury to the sacral and upper back area no cellulitis, keep the area dry and off the pressure and dry Time with Patient: Less than 30
[2021-09-21] MEDS: VANCOMYCIN 1,250 MG in SODIUM CHLORIDE 0.9% 250 ML IVPB SCH (22:02)
[2021-09-21] MEDS: ACETAMINOPHEN TAB 325 MG TAB PO PRN (23:30)
[2021-09-21 23:31] LABS: Glucose,Whole Blood 96 mg/dL (75-99)
[2021-09-22 04:21] LABS: Basophils % (A) 0 %; Eosinophils % (A) 0 %; HCT 27.3 % (34.0-46.0); HGB 8.8 gm/dL (11.4-16.0); Lymphocytes % (A) 11 %; MCHC 32.2 g/dL (31.0-37.0); MCV 99.4 fL (80.0-100.0); Mean Platelet Volume 10.3; Monocytes # (A) 0.2 k/uL (0-1.0); Monocytes % (A) 3 %; Neutrophils # (A) 7.9 k/uL (1.3-7.7); Neutrophils % (A) 85 %; Platelet Count 269 k/uL (150-450); RBC 2.75 m/uL (3.80-5.40); RDW 13.7 % (11.5-15.5); WBC 9.3 k/uL (3.8-10.6)
[2021-09-22 04:39] LABS: ALT 166 U/L (4-34); AST 500 U/L (14-36); African American GFR (CKD) >90 (>60 ml/min/1.73 sqM); Albumin 2.1 g/dL (3.5-5.0); Alkaline Phosphatase 48 U/L (38-126); Anion Gap 2 mmol/L; Blood Urea Nitrogen 26 mg/dL (7-17); Calcium 7.5 mg/dL (8.4-10.2); Carbon Dioxide 33 mmol/L (22-30); Chloride 104 mmol/L (98-107); Glucose 97 mg/dL (74-99); Non-African American GFR(CKD) >90 (>60 ml/min/1.73 sqM); Potassium 3.4 mmol/L (3.5-5.1); Sodium 139 mmol/L (137-145); Total Bilirubin 0.4 mg/dL (0.2-1.3); Total Protein 4.7 g/dL (6.3-8.2)
[2021-09-22] MEDS: POTASSIUM CHLORIDE 10 MEQ in WATER FOR INJECTION 1 100ML.BAG IVPB SCH ×4 (05:17→10:37)
[2021-09-22 05:29] LABS: Glucose,Whole Blood 92 mg/dL (75-99)
[2021-09-22] MEDS: INSULIN ASPART (NovoLOG) 100 UNIT/ML VIAL SQ SCH ×3 (05:29→19:28)
[2021-09-22 05:34] LABS: ABG Base Excess 10.6 mmol/L; ABG HCO3 34 mmol/L (21-25); ABG Oxygen Saturation 95.5 % (94-97); ABG PCO2 46 mmHg (35-45); ABG PH 7.48 (7.35-7.45); ABG PO2 88 mmHg (83-108); ABG TCO2 36 mmol/L (19-24); Allen Test Performed? Yes
[2021-09-22] MEDS: VANCOMYCIN 1,250 MG in SODIUM CHLORIDE 0.9% 250 ML IVPB SCH ×3 (06:27→19:33)
[2021-09-22] MEDS: SODIUM CHLORIDE 0.45% 1,000 ML IV SCH (07:03)
[2021-09-22] MEDS: ENOXAPARIN 40 MG/0.4 ML SYRINGE SQ SCH (07:48)
--- NOTE | 2021-09-22 08:16 | XR ---
EXAMINATION TYPE: XR chest 1V portable DATE OF EXAM: 09/22/2021 HISTORY: Shortness of breath. COMPARISON: 09/21/2021 TECHNIQUE: Single view of the chest is submitted. FINDINGS: Demonstrated are scattered senescent parenchymal change. Hyperinflation compatible with COPD. Endotr acheal and NG tubes unchanged in position. Persistent left lower lobe atelectasis and/or infiltrate. The heart is stable. Hilar and mediastinal structures are within normal limits. Degenerative changes are seen of the dorsal spine. IMPRESSION: 1. Persistent left lower lobe atelectasis and/or infiltrate.
[2021-09-22] MEDS: CHOLECALCIFEROL 125 MCG (5000 IU) TABLET PO SCH (09:27)
[2021-09-22] MEDS: carBAMazepine 200 MG TAB PO SCH ×3 (09:27→19:29)
[2021-09-22] MEDS: AMIODARONE 200 MG TAB PO SCH (09:27)
[2021-09-22] MEDS: CHLORHEXIDINE GLUCONATE 15 ML CUP MUCOUS MEM SCH ×2 (09:27→19:33)
[2021-09-22] MEDS: DEXAMETHASONE SOD PHOSPHATE 10 MG/ML 1 ML VIAL IVP SCH (09:28)
[2021-09-22] MEDS: PANTOPRAZOLE 40 MG/10 ML VIAL IV SCH (09:29)
[2021-09-22] MEDS: levETIRAcetam IV 1,500 MG in SALINE 1 100ML.BAG IVPB SCH ×2 (09:29→19:33)
--- NOTE | 2021-09-22 10:01 | P.PN ---
Subjective Progress Note Date: 09/22/21 Principal diagnosis: Respiratory failure. Reevaluated today on 09/18/21, patient remains in the ICU, intubated and mechanically ventilated. Patient is not making any significant neurological improvement. She has been off sedation for few days, yesterday we started the patient only on Precedex, and that's mostly to keep her synchronous with the ventilator. Again her mental status is basically about the same, and she is not showing much improvement. She opens eyes slightly to deep painful stimuli, but no purposeful movement and no responses to verbal stimuli. She is on assist control rate of 32 tidal volume 325 FiO2 was 50% and PEEP was 8 however I cut down her FiO2 to 45%. Patient is receiving enteral feeding, vital AF at 34 mL per hour. ABG today showed a pO2 of 107 pCO2 44 pH of 7.46. Basic metabolic profile is normal WBC count is 7.6 hemoglobin is 9.5. No significant metabolic abnormality to explain her encephalopathy at this point. Patient is still being followed by neurology on the case. Patient is still being treated for coronary virus infection, and UTI on admission secondary to E. coli. 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 No acute process was noted. Patient remains on seizure medications as per neurology including Keppra and Tegretol. EEG showed slowing/moderate degree of slowing suggestive of generalized cerebral dysfunction. This is seen with toxic metabolic encephalopathy. Reevaluated today on 09/19/21, patient remains in the ICU, intubated and mechanically ventilated, she is on assist control rate of 32 tidal volume of 325 FiO2 45% and PEEP of 8. Patient had to be placed on propofol yesterday at 50 mcg/kg/m, she is on IV fluid at 50 mL per hour. ABG showed a pO2 of 78 pCO2 of 47 pH of 7.44. Chest x-ray is basically about, no change. WBC count is 9.2 hemoglobin is 10.3. Electrolytes are normal. Again the patient had to be placed back on propofol because she was getting agitated, restless, and not syn chronous with the ventilator yesterday. Remains on propofol today, and patient is not responding to any stimuli. Hence I'm keeping her on propofol, I believe the patient will eventually require tracheostomy and PEG tube placement unless CODE STATUS is changed to comfort care. Chest x-ray is basically showing no significant abnormalities. She does have mild pulmonary vascular congestion. Reevaluated today on 09/20/21, patient remains in the ICU, intubated and mechanically ventilated. She is on assist control rate of 32 tidal volume 325 FiO2 is 45%, PEEP is at 8. Patient is back on propofol, intermittently has been receiving Dilaudid, patient becomes at times agitated, and asynchronous with the ventilator, early in the week, I was able to hold sedation for a number of days, however the patient remained unresponsive to verbal stimuli, and apparently she had significant toxic metabolic encephalopathy. CT of the brain was nondiagnostic. Patient was seen by neurology on consultation, and still believe that this is a occipital metabolic encephalopathy picture. Patient is on propofol now at 50 mcg/kg/m, not requiring any other sedatives or narcotics. Patient has been feeding/enteral feeding vital AF at 34 mL per hour. ABG today showed a pO2 of 101 pCO2 47 pH of 7.44. Chest x-ray continues to show retrocardiac density likely atelectasis, otherwise no significant findings on the chest x-ray Progress note dated 09/21/2021. This is a 51-year-old female, who was admitted to the hospital on September 10. She came in with mental status changes, sepsis, and hypernatremia. She came to the intensive care unit on September 10, and was intubated for respiratory failure on 09/11/2021. The patient did test positive for coronavirus. She remains on mechanical ventilator. The patient is on the volume assist control mode, rate 32, tidal volume 325, FiO2 45%, and PEEP of 8. Blood gases show pO2 of 91, pCO2 49, and pH is 7.45. The patient's getting half-normal saline at 50 mL an hour, propofol at 50 mcg/kg/m, and vital AF at 34 mL an hour, which is goal. White count 10.2, hemoglobin 9.7, hematocrit 30.4, and platelet count was normal. Sodium 139, potassium 3.5, chlorides 104, CO2 32, anion gap 3, BUN 34, and creatinine 0.65. Microbiologic studies show evidence of Escherichia coli in the urine from September 10, and presumptive staph aureus in the sputum from August 30 0. The chest x-ray shows left lower lobe atelectasis and/or infiltrates. The patient is currently on antifungals, and aztreonam. The infectious disease doctor is currently on the case. Progress note dated 09/22/2021. 51-year-old female who was admitted to the hospital on 09/10/2021. She came in with mental status changes, sepsis, and hypernatremia. She came to the intensive care unit on September 10, and was intubated for respiratory failure on 09/11/2021. She did test positive for coronavirus. She remains on the mechanical ventilator. The plan is for a tracheostomy and PEG tube placement today by one of the surgeons. The patient also had a right radial arterial line placed by our team. Currently, she is on the volume assist control mode, rate 32, tidal volume 325, FiO2 45%, PEEP of 8. Arterial blood gases show pO2 of 88, pCO2 46, and a pH is 7.48. The patient is on propofol at 40 mcg/kg/m, saline at 20 mL an hour, half-normal saline at 50 mL an hour, and vital, at 46 mL an hour, which is goal. Obviously, tube feeds on hold for anticipated surgery today. White count 9.3, hemoglobin 8.8, hematocrit 27.3, and platelet count 269,000. Sodium 139, potassium 3.4, chlorides 104, CO2 33, anion gap 2, BUN 26, and creatinine 0.54. AST 500, ALT 166. An ultrasound the right upper quadrant will be ordered. Chest x-ray shows persistent left lower lobe atelectasis and/or inf iltrate. Objective - Vital Signs Vital signs: Vital Signs Temp 98.3 F 09/22/21 04:00 Pulse 92 09/22/21 07:00 Resp 33 H 09/22/21 07:00 BP 117/69 09/22/21 07:00 Pulse Ox 95 09/22/21 07:00 Intake & Output 09/21/21 09/22/21 09/22/21 18:59 06:59 18:59 Intake Total 8481.538 6309.727 73 Output Total 1755 1395 125 Balance -25.842 646.727 -52 Weight 61.4 kg 60.8 kg Intake: IV 1063 1606 73 .9NS 20 160 220 20 Anidulafungin 100 mg In 100 Sodium Chloride 0.9% 100 ml @ 84 mls/hr IVPB DAILY @1700 [facility] Rx#:[id number] Aztreonam 2 gm In Sodium 200 Chloride 0.9% 100 ml @ 33 .3 mls/hr IVPB Q8HR [facility] Rx#:[id number] Potassium Chloride 10 meq 200 In Water For Injection 1 100ml.bag @ 100 mls/hr IVPB Q1HR [facility] Rx#: [id number] Pressure bag 33 36 3 Sodium Chloride 0.45% 1, 470 550 50 000 ml @ 50 mls/hr IV . Q20H [facility] Rx#:[id number] Vancomycin 1,250 mg In 500 Sodium Chloride 0.9% 250 ml @ 125 mls/hr IVPB Q8H [facility] Rx#:[id number] levETIRAcetam IV 1,500 mg 100 100 In Saline 1 100ml.bag @ 400 mls/hr IVPB Q12HR [facility] Rx#:[id number] Intake, IV Titration 220.158 175.727 Amount propofoL 1,000 mg In 220.158 175.727 Empty Bag 1 bag @ Titrate IV .Q0M [facility] Rx#: [id number] Tube Feeding 386 230 0 Other 60 30 Output: Urine 1755 1395 125 Other: Voiding Method Indwelling Catheter Indwelling Catheter # Bowel Movements 1 ABP, PAP, CO, CI - Last Documented Arterial Blood Pressure 107/61 - Exam No acute distress, currently sedated, with an orally placed endotracheal tube and NG tube. HEENT examination is grossly unremarkable. Neck supple. Full range of motion. No adenopathy thyromegaly or neck vein di stention. Cardiovascular examination reveals regular rhythm rate. S1-S2 normal. No S3 or S4. No discernible murmur noted. Heart rate 92 bpm. Heart sounds are distant. Lungs reveal bilateral expiratory rhonchi and wheezes. No crackles. Breath sounds are equal bilaterally. Saturations are 95%. Abdomen soft, without bowel sounds. No masses. Extremities are intact. No cyanosis or clubbing. Trace edema is noted. Skin is without rash or lesion. Neurologic examination cannot be assessed as the patient's currently sedated with propofol. - Labs CBC & Chem 7: 09/22/21 03:43 09/22/21 03:43 Labs: Abnormal Lab Results - Last 24 Hours (Table) 09/21/21 09/21/21 09/22/21 Range/Units 11:50 17:44 03:43 RBC 2.75 L (3.80-5.40) m/uL Hgb 8.8 L (11.4-16.0) gm/dL Hct 27.3 L (34.0-46.0) % Neutrophils # 7.9 H (1.3-7.7) k/uL ABG pH (7.35-7.45) ABG pCO2 (35-45) mmHg ABG HCO3 (21-25) mmol/L ABG Total CO2 (19-24) mmol/L Potassium (3.5-5.1) mmol/L Carbon Dioxide (22-30) mmol/L BUN (7-17) mg/dL POC Glucose (mg/dL) 142 H 104 H (75-99) mg/dL Calcium (8.4-10.2) mg/dL AST (14-36) U/L ALT (4-34) U/L Total Protein (6.3-8.2) g/dL Albumin (3.5-5.0) g/dL 09/22/21 09/22/21 Range/Units 03:43 05:30 RBC (3.80-5.40) m/uL Hgb (11.4-16.0) gm/dL Hct (34.0-46.0) % Neutrophils # (1.3-7.7) k/uL ABG pH 7.48 H (7.35-7.45) ABG pCO2 46 H (35-45) mmHg ABG HCO3 34 H (21-25) mmol/L ABG Total CO2 36 H (19-24) mmol/L Potassium 3.4 L (3.5-5.1) mmol/L Carbon Dioxide 33 H (22-30) mmol/L BUN 26 H (7-17) mg/dL POC Glucose (mg/dL) (75-99) mg/dL Calcium 7.5 L (8.4-10.2) mg/dL AST 500 H (14-36) U/L ALT 166 H (4-34) U/L Total Protein 4.7 L (6.3-8.2) g/dL Albumin 2.1 L (3.5-5.0) g/dL Microbiology - Last 24 Hours (Table) 09/16/21 21:25 Blood Culture - Preliminary Blood No Growth after 120 hours 09/17/21 23:51 Gram Stain - Preliminary Sputum Sputum Culture - Preliminary Radha glabrata Presumptive Staph aureus Assessment and Plan Assessment: Acute hypoxemic respiratory failure secondary to coronavirus associated pneumonia, status post intubation and mechanical ventilation on 09/11/2021. Anticipated tracheostomy and PEG tube placement on 09/22/2021. Acute mental status changes, secondary to toxic/metabolic encephalopathy. Dehydration, on admission, resolved. History of seizure disorder. Prior history of pulmonary embolism. Paroxysmal atrial fibrillation. Cardiomyopathy with ejection fraction of 30-35%. Status post pacemaker implantation. 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 Hypothyroidism. CAD. History of CVA in 2007. History of recurrent E. coli urinary tract infections. History of psoriasis. History of sacral/coccygeal decubitus ulcer. Plan: Plan dated 09/21/2021. Because of the patient's overall poor status, and the fact that she still is a full code, surgery will be consulted for possible tracheostomy and PEG tube placement. We will continue to follow make recommendations where appropriate. Again, prognosis is very poor. She remains on mechanical ventilator. She remains on appropriate antibiotics. Infectious diseases is following. We will continue to follow make recommendations where appropriate. Plan dated 09/22/2021. The patient is going to hopefully have a tracheostomy and PEG tube placement today. The patient remains on propofol at 40 mcg/kg/m. We did replace the arterial line. The previous arterial line was poorly functional. She had a right radial arterial line placed today by our team. A previous urine culture from September 10 showed Escherichia coli. Sputum from September 17 showed Radha, and presumptive Staphylococcus aureus. The patient remains on an antifungal, and vancomycin as per infectious diseases. Mariam follow and make recommendations where appropriate. Prognosis is certainly guarded. Time with Patient: Greater than 30
--- NOTE | 2021-09-22 10:52 | US ---
EXAMINATION TYPE: US gallbladder DATE OF EXAM: 09/22/2021 COMPARISON: CT 2009 CLINICAL HISTORY: elevated LFTs. Exam done portable on covid patient in ICU EXAM MEASUREMENTS: Liver Length: 19.3 cm Gallbladder Wall: 0.2 cm CBD: 0.2 cm Right Kidney: 12.0 x 5.9 x 5.9 cm Pancreas: visualized portions wnl, limited by overlying bowel gas Liver: enlarged Gallbladder: wnl Evidence for sonographic Grewal's sign: n/a CBD: wnl Right Kidney: wnl IMPRESSION: Hepatomegaly. Otherwise unremarkable study.
--- NOTE | 2021-09-22 11:21 | PCN ---
PROCEDURE NOTE PROCEDURE: Placement of right radial arterial line. PREOPERATIVE DIAGNOSIS: Frequent blood draws and blood gas monitoring. POSTOPERATIVE DIAGNOSIS: Frequent blood draws and blood gas monitoring. OPERATORS: 1. Dr. Serrano. 2. Dr. Mojica. PROCEDURE DESCRIPTION: [place] time-out was completed verifying correct patient, procedure, site, positioning, and implant(s) or special equipment if applicable. Harjeet's test was performed to ensure adequate perfusion. The patient's right wrist was prepped and draped in sterile fashion. 1% Lidocaine was used to anesthetize the area. An 18G [place] arterial line was introduced into the right radial artery. The catheter was threaded over the guide wire and the needle was removed with appropriate pulsatile blood return. There was good waveform and blood pressure reading. Blood loss was minimal. The catheter was then sutured in place to the skin and a sterile dressing applied by the nurse. Perfusion to the extremity distal to the point of catheter insertion was checked and found to be adequate. The patient tolerated the procedure well and there were no immediate complications. MMODL / IJN: [id number] /
[2021-09-22 12:07] LABS: Glucose,Whole Blood 101 mg/dL (75-99)
--- NOTE | 2021-09-22 14:54 | P.PN ---
Subjective Progress Note Date: 09/22/21 This is a pleasant 51 years old female with past medical history of Coronary Artery Disease, Heart Failure, CVA/TIA, Pulmonary Embolus (PE), Seizure Disorder, Last seizure 2009, CVA 2007 with L sided weakness arm and leg and has L foot drop, TIA 2018, cardiomyopathy, R PE and pneumothorax/pneumonia following leg fracture in 1994, gestational diabetes with all pregnancies , bilateral glaucoma with surgery, psoriasis in the past, UTIs. She is a status post Pacemaker, history of Bilateral eye surgery for glaucoma, Anxiety, Depression, Current every day smoker Patient presents because of altered mental status. Information was limited from the patient. It was obtained from the chart and medical staff. Also as per family patient was able to go to the bathroom, was more lethargic and tired over the last day. While in the emergency room focal mild seizure is noticed On admission patient had and fever of 101. She is tachypneic at 26-40, tachycardic 110-140, also she is hypoxic saturating 72% on room air Labs showing WBC of 10.5, hemoglobin of 16.3, platelet count of 197. INR 1.7. Sodium 164, creatinine 1.7, lactic acid elevated 4.6. Liver enzymes elevated with AST 202 and ALT 81. Bilirubin is normal at 1.3. Urine analysis is highly suspicious of infection Urine drug screen is negative Cash versus positive Chest x-ray showing left perihilar and left lower lobe area of infiltrate and small effusion correlates for pneumonia CT of the brain without contrast showing no intracranial hemorrhage, evidence of remote ischemic change. However there is vague low attenuation near the left thalamus and left cerebral peduncle. Acute ischemia in the differential diagnosis. Recommend stat MRI of brain with MRSA [place] as clinically warranted. In the emergency room patient was started on aztreonam and IV vancomycin, Keppra and heparin drip 09/11/2021 Patient today was still in the ICU, she was very weak and obtunded, she will wake up to certain stabilized and moans, she does not follow commands she cannot, gait she moved both extremities symmetrically. R on she had collapse of her left lung cancer and she has to be intubated and repeat chest x-ray showing better. A of the left lung. She is tachypneic with a breathing rate 22, no more fever since yesterday. Her sodium improved down to 144 and she was started on normal saline, creatinine 1.1, Ejection fraction showed 30-35% which is slice worsened from 06/2021 where it was 35-40% She remains on dexamethasone, IV vancomycin and clindamycin, heparin drip, Keppra and normal saline at 75 mL/h 09/12/2021 Patient with respiratory failures and she was intubated and placed on mechanical ventilation with pulmonary/critical care team following her mostly. There is no more seizure-like activity noticed. She still tachypneic with a breathing rate of 32 blood pressure 100/70, she is needing FiO2 of 80% and PEEP of 20. She has no more fevers since admission. Urine culture is growing gram-negative bacilli. Sodium is 146, WBCs is increased at 16.5 K. PH showing acidosis with 7.1 and elevated pCO2 at 83. Chest x-ray showing left sided opacities with near full. A of the left lung. Patient kept on antibiotics in the form of clindamycin and Levaquin and fluconazole. Also she remains on dexamethasone, and so a heparin to Lovenox. Also continued on seizure medication 1500 mg twice a day and IV fluids per pulmonary team. Neurology team on the case 09/13/2021 Patient remains intubated and sedated with pulmonary/critical care team following her closely. Her PEEP is lower today to 18. She remains on FiO2 of 50%. She is tachypneic at 32 about blood pressure is controlled. Her inflammatory markers are increased to LDH of 1009 and CRP of 25.1. Bicarb is elevated at 31 WBC is 17.7, sodium improved to 142. Creatinine improved to 0.6. Chest x-ray showed improving left lung infiltrate. PH is improved slightly 7.2 with pCO2 is slightly better at 79. Urine culture is growing E. coli which is sensitive to the antibiotics. Currently patient is covered with clindamycin, Levaquin and fluconazole. Also she is on dexamethasone 6 mg, Keppra 1500 mg and half-normal saline at 50 mL per hour Anticoagulation switch from heparin drip and to Lovenox 09/14/2021 Patient still intubated and sedated on mechanical ventilation with pulmonary/critical care team following her closely and just her vent setting. Today her FiO2 of 55%, and she is tachypneic at 33 breath per minute. Labs showing stable findings with sodium 141, creatinine 0.8, liver enzymes slightly elevated, LDH slightly down at 797 and CRP 2-3.2. Same leukocytosis at 14.7. Her pH is 7.2 and carbon dioxide is 82. D-dimer mildly elevated at 0.9, just x-ray showing bilateral infiltrate with no significant change from prior. She remains on the same antibiotic of clindamycin, Levaquin, dexamethasone, Keppra 1500 mg and half normal saline at 50 mL/h 09/15/2021 Patient in the ICU intubated and sedated, with pulmonary/critical care team following closely. FiO2 still 50%, hemodynamically showing both staple blood pressure 101/40, patient is tachypneic more than 30 per minutes. PEEP is lower. wbc of 11.3, hemoglobin 9.4, sodium 140, creatinine 0.8. chest x-ray: mild worsening infiltrate in the left lobe. patient continued with the same treatment of clindamycin, levaquin, dexamethasone, keppra and she received 1 l of normal saline today. 09/16/2021 Patient is seen and evaluated and follow-up continues to be closely monitored in the ICU. Multiple medical consultations following including infectious disease, pulmonary clinical professor, and neurology. Patient continues on mechanical vent with an FiO2 of 50% and PEEP is 10. Weaning is being continued and PEEP is being titrated down to 8. Patient continues with sedation holidays and very minimal propofol and patient is now off Nimbex and very minimal stimulus noted. Patient response to painful stimulus minimally. Plan is for possible CT of the brain repeat this afternoon. Patient also being closely monitored for continued seizures of which she does have a past medical history of. Patient is also Covid positive and infectious disease is following and patient is maintained on clindamycin along with Levaquin. Chest x-ray today shows correlate for left lower lobe pneumonia versus atelectasis with possible associated effusion. 09/17/2021 Patient is seen in follow-up this morning closely monitored in the ICU. Neurology also following and patient is maintained on IV Keppra. Patient also continues on IV antibiotics in the form of aztreonam and clindamycin with infectious disease following. Patient urine culture showing E. coli. Chest x- ray today shows chronic emphysematous changes with left basilar acute infiltrate and/or atelectasis and likely small left pleural effusion all redemonstrated with no significant change from previous day. Neurology following And okay to resume anticoagulant as there is no evidence of new intracranial process or hemorrhage. Patient is off sedation and continues to be unresponsive. 09/18/2021 Patient is evaluated again this morning and continues to be in the ICU on mechanical vent and being closely monitored. FiO2 is at 45% and PEEP is 8. Patient continues to be off sedation with no response for over 24 hours. Neurology following as well and have discussed overall prognosis with family and family discussing with other family members about CODE STATUS and treatment plan moving forward. Infectious disease also following and patient is maintained on IV Levaquin along with clindamycin and aztreonam and will continue. Urine cultures finalized showing E. coli and sputum culture preliminary is pending at this time. 09/19/2020 Patient evaluated today in the ICU on mechanical ventilation. Fi02 at 45% with a PEEP of 8. Propofol infusing, Nimbex and Levophed are currently on hold. Pr ecedex discontinued. There has been no response, and mental status is not improving. Still no response to verbal stimuli. Patient is being followed closely by neurology for this and is on IV keppra and tegretol. EEG consistant with toxic metabolic encepholapthy. Repeat chest xray today shows similar opacities given patient rotation. Stable support tubes. Mild pulmonary vascular congestion correlate with serum BNP. Blood cultures negative, pending finalized, sputum negative so far. Labs reviewed today: WBC 9.2, hgb 10.3, sodium 138, potassium 3.8, BUN 33, Cr 0.76, glucose in the 110's, calcium 7.9, AST 250, ALT 78, Albumin 2.3. Vitals reviewed: Temp 97.4, HR 126, RR 44, Blood pressure 113/80, 96% oxygen saturation on mechanical ventilation. 09/20/2021 Patient evaluated in ICU on mechanical ventilation with an Fi02 of 45%, PEEP of 12. Chest xray today shows left lower lobe atelectasis versus pneumonia with similar findings as previous. BNP yesterday 12,500, however xray reviewed and d oes not appear to be showing heart failure. She is in negative fluid balance. Status was addressed with family by neurology who is awaiting a phone call back. White count 12.8, RBC 3.5, sodium 137 potassium 3.8, chloride 101, CO2 33, BUN 35, creatinine 0.68, blood sugars in the 120s, AST 424, ALT 115, alk phos 63. Running temps today 100.8, heart rate 123, respiratory rate 36, blood pressure 95/65, oxygen saturation of 93-94%. Blood pressures are on the softer side 88/55. Current infusions include propofol which has been resumed as patient has not shown any signs of neurological improvement while on a propofol break. 09/21/2021 Patient is seen in follow up today and continues to be on mechanical vent with an FI02 of 45% with a peep of 8 and multiple medical consultations following. Ch est xray similar from previous with copd and continued focal basilar left lower lobe retrocardiac consolidation or atelectasis. Patient is on propofol and general surgery has been consulted for peg and trach placement. Plan for surgery is tomorrow. 09/22/2021 Patient is seen and evaluated in follow-up this morning continues on mechanical ventilation with a PEEP of 8 and FiO2 is 45%. General surgery following an plan is for PEG and trach placement today due to prolonged mechanical ventilation and no improvements or weaning from the vent. Patient continues on tube feeding along with Lovenox which is currently on hold for the surgical procedure. Patient's chest x-ray today shows diffuse bilateral infiltrates that are stable with no pneumothorax or pleural effusion noted. Patient also had gallbladder ultrasound secondary to elevated liver functions and shows hepatomegaly otherwise unremarkable. Patient is continued on antifungal's along with vancomycin and infectious disease following closely. Sputum cultures preliminary showing Radha glabrata and Staphylococcus aureus and most recent blood cultures have been negative. Review of systems: Unable to obtain as patient continues to be on mechanical ventilation and sedated Labs: WBC is 7.6, hemoglobin is 8.3, platelets are 160, d-dimer is 1.58, sodium is 141, potassium 4.1, BUN 45, creatinine 0.34, calcium 9.9, LDH 732, CRP 33.9 Active Medications Acetaminophen (Acetaminophen Tab 325 Mg Tab) 650 mg PO Q6HR PRN PRN Reason: Fever and/ or Pain Last Admin: 09/21/21 23:30 Dose: 650 mg Documented by: Amiodarone HCl (Amiodarone 200 Mg Tab) 200 mg PO DAILY [facility] Last Admin: 09/22/21 09:27 Dose: 200 mg Documented by: Artificial Tears (Artificial Tears-Hypromellose Drops 15 Ml Btl) 1 drops BOTH EYES QID PRN PRN Reason: Dry Eye(s) Last Admin: 09/16/21 08:58 Dose: 1 drops Documented by: Carbamazepine (Carbamazepine 200 Mg Tab) 200 mg PO TID [facility] Last Admin: 09/22/21 09:27 Dose: 200 mg Documented by: Chlorhexidine Gluconate (Chlorhexidine Gluconate 15 Ml Cup) 15 ml MUCOUS MEM BID [facility] Last Admin: 09/22/21 09:27 Dose: 15 ml Documented by: Cholecalciferol (Cholecalciferol 125 Mcg (5000 Iu) Tablet) 125 mcg PO DAILY [facility] Last Admin: 09/22/21 09:27 Dose: 125 mcg Documented by: Dexamethasone Sodium Phosphate (Dexamethasone Sod Phosphate 10 Mg/Ml 1 Ml Vial) 6 mg IVP DAILY [facility] Last Admin: 09/22/21 09:28 Dose: 6 mg Documented by: Enoxaparin Sodium (Enoxaparin 40 Mg/0.4 Ml Syringe) 40 mg SQ DAILY [facility] Last Admin: 09/22/21 07:48 Dose: Not Given Documented by: Hydromorphone HCl (Hydromorphone 1 Mg/Ml 1 Ml Syringe) 1 mg IVP Q2H PRN PRN Reason: Pain Last Admin: 09/20/21 20:39 Dose: 1 mg Documented by: Levetiracetam 1,500 mg/ IV (Solution) 100 mls @ 400 mls/hr IVPB Q12HR [facility] Last Admin: 09/22/21 09:29 Dose: 400 mls/hr Documented by: Sodium Chloride (Saline 0.45%) 1,000 mls @ 50 mls/hr IV .Q20H [facility] Last Admin: 09/22/21 07:03 Dose: Not Given Documented by: Vancomycin HCl 1,250 mg/ (Sodium Chloride) 250 mls @ 125 mls/hr IVPB Q8H [facility] Last Admin: 09/22/21 12:23 Dose: 125 mls/hr Documented by: Anidulafungin 100 mg/ Sodium (Chloride) 130 mls @ 84 mls/hr IVPB DAILY@1700 [facility] Propofol 1,000 mg/ IV Solution 100 mls @ 0 mls/hr IV .Q0M [facility]; Protocol Last Titration: 09/22/21 10:35 Dose: 20 mcg/kg/min, 7.296 mls/hr Documented by: Insulin Aspart (Insulin Aspart (Novolog) 100 Unit/Ml Vial) 0 unit SQ Q6H [facility]; Protocol Last Admin: 09/22/21 12:23 Dose: Not Given Documented by: Miscellaneous Information (Potassium Replacement Protocol 1 Each Misc) 1 each MISCELLANE DAILY PRN; Protocol PRN Reason: Per Protocol Miscellaneous Information (Vancomycin Trough Due 1 Each Misc) 0 each MISCELLANE DIRECTED ONE Stop: 09/23/21 05:01 Naloxone HCl (Naloxone 0.4 Mg/Ml 1 Ml Vial) 0.2 mg IV Q2M PRN PRN Reason: Opioid Reversal Pantoprazole Sodium (Pantoprazole 40 Mg/10 Ml Vial) 40 mg IV DAILY [facility] Last Admin: 09/22/21 09:29 Dose: 40 mg Documented by: Physical exam: GENERAL: The patient is intubated and sedated, FiO2 is 45% and PEEP is 8 HEENT: Pupils are round and equally reacting to light. EOMI. No scleral icterus. No conjunctival pallor. Normocephalic, atraumatic. No pharyngeal erythema. No thyromegaly. CARDIOVASCULAR: S1 and S2 present. No murmurs, rubs, or gallops. PULMONARY: Chest is clear to auscultation, no wheezing or crackles. ABDOMEN: Soft, nontender, nondistended, normoactive bowel sounds. No palpable organomegaly. MUSCULOSKELETAL: No joint swelling or deformity. EXTREMITIES: No cyanosis, clubbing, or pedal edema. NEUROLOGICAL: unresponsive, remains sedated SKIN: No rashes. no petechiae. Assessment: Altered mental status could be metabolic/toxic encephalopathy, ruled out other intracranial lesions, and possibly secondary to seizure Left lower lobe pneumonia, rule out aspiration pneumonia Acute urinary tract infection, present on admission with culture showing E. coli Sepsis secondary to UTI and pneumonia Breakthrough seizure Bilateral interstitial Covid 19 pneumonia Acute hypoxic respiratory failure secondary to COVID-19 pneumonia requiring mechanical ventilation Increased inflammatory markers elevated troponin, most likely type II ischemia. Rule out primary cardiac causes Cardiomyopathy with most recent EF of 30-35% Hypernatremia, improved Acute kidney injury, improved Mild elevated liver enzymes History of coronary artery disease History of pulmonary embolism History of seizure disorder, last seizure was in 2009 as per documents History 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 left foot drop History of glaucoma status post surgery Status post permanent pacemaker Nicotine dependence GI prophylaxis DVT prophylaxis Full code Plan: This is a pleasant 51 years old female who presented with altered mental status, pneumonia, UTI, possible stroke although most likely old infarcts noted on CT, seizure and positive for covid pneumonia patient was intubated and continues on mechanical ventilation with a FiO2 of 45% and PEEP is 8. General surgery consulted and plan is for PEG and trach placement today as patient family wishes to remain full code area and Lovenox and tube feedings currently on hold for the procedure. Continue with Keppra and neurology following and patient has been off sedation and continues to be unresponsive. CT of the brain shows old right hemisphere infarct without change old left posterior frontal lobe cortical infarct without change and no acute abnormality. Patient is currently back on Propofol pulmonary and infectious disease following, continue the broad-spectrum antibiotics in the form of vancomycin along with antifungal as sputum culture showing Radha glabrata along with Staphylococcus aureus With resistance. Continue with dexamethasone, vitamin and zinc supplements along with Lovenox, Lovenox and tube feedings currently on hold as patient is scheduled for PEG and trach placement today. Cardiology team evaluated the patient for elevated troponin, patient does not have A. fib per golf course starter Family aware of overall poor and guarded prognosis and would like to continue with full code status and have elected to proceed with peg and trach placement. General surgery plans for placement today. Overall Prognosis remains poor and extremely guarded Objective - Vital Signs Vital signs: Vital Signs Temp 98.3 F 09/22/21 04:00 Pulse 92 09/22/21 07:00 Resp 33 H 09/22/21 07:00 BP 117/69 09/22/21 07:00 Pulse Ox 95 09/22/21 07:00 Intake & Output 09/21/21 09/22/21 09/22/21 18:59 06:59 18:59 Intake Total 0719.356 3251.727 143 Output Total 1755 1395 325 Balance -25.842 646.727 -182 Weight 61.4 kg 60.8 kg Intake: IV 1063 1606 143 .9NS 20 160 220 40 Anidulafungin 100 mg In 100 Sodium Chloride 0.9% 100 ml @ 84 mls/hr IVPB DAILY @1700 [facility] Rx#:[id number] Aztreonam 2 gm In Sodium 200 Chloride 0.9% 100 ml @ 33 .3 mls/hr IVPB Q8HR [facility] Rx#:[id number] Potassium Chloride 10 meq 200 In Water For Injection 1 100ml.bag @ 100 mls/hr IVPB Q1HR [facility] Rx#: [id number] Pressure bag 33 36 3 Sodium Chloride 0.45% 1, 470 550 100 000 ml @ 50 mls/hr IV . Q20H [facility] Rx#:[id number] Vancomycin 1,250 mg In 500 Sodium Chloride 0.9% 250 ml @ 125 mls/hr IVPB Q8H [facility] Rx#:[id number] levETIRAcetam IV 1,500 mg 100 100 In Saline 1 100ml.bag @ 400 mls/hr IVPB Q12HR [facility] Rx#:[id number] Intake, IV Titration 220.158 175.727 Amount propofoL 1,000 mg In 220.158 175.727 Empty Bag 1 bag @ Titrate IV .Q0M [facility] Rx#: [id number] Tube Feeding 386 230 0 Other 60 30 Output: Urine 1755 1395 325 Other: Voiding Method Indwelling Catheter Indwelling Catheter # Bowel Movements 1 ABP, PAP, CO, CI - Last Documented Arterial Blood Pressure 107/61 - Labs CBC & Chem 7: 09/22/21 03:43 09/22/21 03:43 Labs: Abnormal Lab Results - Last 24 Hours (Table) 09/21/21 09/21/21 09/22/21 Range/Units 11:50 17:44 03:43 RBC 2.75 L (3.80-5.40) m/uL Hgb 8.8 L (11.4-16.0) gm/dL Hct 27.3 L (34.0-46.0) % Neutrophils # 7.9 H (1.3-7.7) k/uL ABG pH (7.35-7.45) ABG pCO2 (35-45) mmHg ABG HCO3 (21-25) mmol/L ABG Total CO2 (19-24) mmol/L Potassium (3.5-5.1) mmol/L Carbon Dioxide (22-30) mmol/L BUN (7-17) mg/dL POC Glucose (mg/dL) 142 H 104 H (75-99) mg/dL Calcium (8.4-10.2) mg/dL AST (14-36) U/L ALT (4-34) U/L Total Protein (6.3-8.2) g/dL Albumin (3.5-5.0) g/dL 09/22/21 09/22/21 Range/Units 03:43 05:30 RBC (3.80-5.40) m/uL Hgb (11.4-16.0) gm/dL Hct (34.0-46.0) % Neutrophils # (1.3-7.7) k/uL ABG pH 7.48 H (7.35-7.45) ABG pCO2 46 H (35-45) mmHg ABG HCO3 34 H (21-25) mmol/L ABG Total CO2 36 H (19-24) mmol/L Potassium 3.4 L (3.5-5.1) mmol/L Carbon Dioxide 33 H (22-30) mmol/L BUN 26 H (7-17) mg/dL POC Glucose (mg/dL) (75-99) mg/dL Calcium 7.5 L (8.4-10.2) mg/dL AST 500 H (14-36) U/L ALT 166 H (4-34) U/L Total Protein 4.7 L (6.3-8.2) g/dL Albumin 2.1 L (3.5-5.0) g/dL Microbiology - Last 24 Hours (Table) 09/16/21 21:25 Blood Culture - Preliminary Blood No Growth after 120 hours 09/17/21 23:51 Gram Stain - Preliminary Sputum Sputum Culture - Preliminary Radha glabrata Presumptive Staph aureus
[2021-09-22] MEDS: ANIDULAFUNGIN 100 MG in SODIUM CHLORIDE 0.9% 100 ML IVPB SCH (16:31)
[2021-09-22] MEDS: HYDROmorphone 1 MG/ML 1 ML SYRINGE IVP PRN ×2 (17:08→21:41)
[2021-09-22 18:33] LABS: Glucose,Whole Blood 88 mg/dL (75-99)
--- NOTE | 2021-09-22 21:26 | P.PN ---
Subjective Progress Note Date: 09/22/21 Principal diagnosis: Pneumonia pressure ulcer and multiple antibiotic allergies Patient is a 51-year-old female presenting to the hospital on September 10 for mental status changes patient did have a evidence of COVID-19 infection, with respiratory failure requiring intubation also with E. coli UTI and the patient did have multiple antibiotic allergies. On today's evaluation that is 09/22/2021, patient is afebrile, the patient is hemodynamically stable not requiring any pressor support, the patient FiO2 is currently stable at 45%, no significant purulent secretions for the the ET or diarrhea or any changes reported by the nursing staff Objective - Vital Signs Vital signs: Vital Signs Temp 98.5 F 09/22/21 12:00 Pulse 86 09/22/21 13:00 Resp 28 H 09/22/21 13:00 BP 125/71 09/22/21 13:00 Pulse Ox 93 L 09/22/21 13:00 Intake & Output 09/21/21 09/22/21 09/22/21 18:59 06:59 18:59 Intake Total 8212.603 4465.727 1004.917 Output Total 1755 1395 1275 Balance -25.842 646.727 -270.083 Weight 61.4 kg 60.8 kg Intake: IV 1063 1606 993 .9NS 20 160 220 140 Anidulafungin 100 mg In 100 Sodium Chloride 0.9% 100 ml @ 84 mls/hr IVPB DAILY @1700 ADDIE Rx#:[id number] Aztreonam 2 gm In Sodium 200 Chloride 0.9% 100 ml @ 33 .3 mls/hr IVPB Q8HR ADDIE Rx#:[id number] Potassium Chloride 10 meq 200 200 In Water For Injection 1 100ml.bag @ 100 mls/hr IVPB Q1HR ADDIE Rx#: [id number] Pressure bag 33 36 3 Sodium Chloride 0.45% 1, 470 550 300 000 ml @ 50 mls/hr IV . Q20H ADDIE Rx#:[id number] Vancomycin 1,250 mg In 500 250 Sodium Chloride 0.9% 250 ml @ 125 mls/hr IVPB Q8H ADDIE Rx#:[id number] levETIRAcetam IV 1,500 mg 100 100 100 In Saline 1 100ml.bag @ 400 mls/hr IVPB Q12HR ADDIE Rx#:[id number] Intake, IV Titration 220.158 175.727 11.917 Amount propofoL 1,000 mg In 220.158 175.727 Empty Bag 1 bag @ Titrate IV .Q0M ADDIE Rx#: [id number] propofoL 1,000 mg In 11.917 Empty Bag 1 bag @ Titrate IV .Q0M ADDIE Rx#: [id number] Tube Feeding 386 230 0 Other 60 30 Output: Urine 1755 1395 1275 Other: Voiding Method Indwelling Catheter Indwelling Catheter Indwelling Catheter # Bowel Movements 1 ABP, PAP, CO, CI - Last Documented Arterial Blood Pressure 151/69 - Exam GENERAL DESCRIPTION: Middle-aged male intubated on the vent, no distress. No tachypnea or accessory muscle of respiration use. LUNGS: Unlabored breathing. Decreased breath sound at the base. No wheeze or crackle. HEART: S1, S2, regular rate and rhythm. No loud murmur ABDOMEN: Soft, no tenderness , guarding or rigidity, no organomegaly EXTREMITIES: No edema of feet. - Labs CBC & Chem 7: 09/22/21 03:43 09/22/21 03:43 Labs: Abnormal Lab Results - Last 24 Hours (Table) 09/21/21 09/22/21 09/22/21 Range/Units 17:44 03:43 03:43 RBC 2.75 L (3.80-5.40) m/uL Hgb 8.8 L (11.4-16.0) gm/dL Hct 27.3 L (34.0-46.0) % Neutrophils # 7.9 H (1.3-7.7) k/uL ABG pH (7.35-7.45) ABG pCO2 (35-45) mmHg ABG HCO3 (21-25) mmol/L ABG Total CO2 (19-24) mmol/L Potassium 3.4 L (3.5-5.1) mmol/L Carbon Dioxide 33 H (22-30) mmol/L BUN 26 H (7-17) mg/dL POC Glucose (mg/dL) 104 H (75-99) mg/dL Calcium 7.5 L (8.4-10.2) mg/dL AST 500 H (14-36) U/L ALT 166 H (4-34) U/L Total Protein 4.7 L (6.3-8.2) g/dL Albumin 2.1 L (3.5-5.0) g/dL 09/22/21 09/22/21 Range/Units 05:30 12:05 RBC (3.80-5.40) m/uL Hgb (11.4-16.0) gm/dL Hct (34.0-46.0) % Neutrophils # (1.3-7.7) k/uL ABG pH 7.48 H (7.35-7.45) ABG pCO2 46 H (35-45) mmHg ABG HCO3 34 H (21-25) mmol/L ABG Total CO2 36 H (19-24) mmol/L Potassium (3.5-5.1) mmol/L Carbon Dioxide (22-30) mmol/L BUN (7-17) mg/dL POC Glucose (mg/dL) 101 H (75-99) mg/dL Calcium (8.4-10.2) mg/dL AST (14-36) U/L ALT (4-34) U/L Total Protein (6.3-8.2) g/dL Albumin (3.5-5.0) g/dL Microbiology - Last 24 Hours (Table) 09/17/21 23:51 Gram Stain - Final Sputum Sputum Culture - Final Radha glabrata Staphylococcus aureus 09/16/21 21:25 Blood Culture - Preliminary Blood No Growth after 120 hours Assessment and Plan (1) Pneumonia Current Visit: Yes Status: Acute Code(s): J18.9 - PNEUMONIA, UNSPECIFIED ORGANISM SNOMED Code(s): 654904543 (2) Allergy to multiple antibiotics Current Visit: Yes Status: Acute Code(s): Z88.1 - ALLERGY STATUS TO OTHER ANTIBIOTIC AGENTS SNOMED Code(s): 213790200 (3) COVID-19 Current Visit: Yes Status: Acute Code(s): U07.1 - COVID-19 SNOMED Code(s): 185659922 Plan: 1-Patient with acute respiratory failure which is multifactorial in this patient who did have a covid19 pneumonia and a concern for possible secondary bacterial pneumonia patient With a new fever blood and sputum cultures were done and blood culture has been negative sputum showing Radha was more likely colonizer however underlying oropharyngeal candidiasis is not excluded, as well as staphylococcus aureus patient did have a penicillin and cephalosporin ALLERGY we will add vancomycin and monitor his kidney function closely Time with Patient: Less than 30
[2021-09-22 23:14] LABS: Glucose,Whole Blood 78 mg/dL (75-99)
[2021-09-23] MEDS: INSULIN ASPART (NovoLOG) 100 UNIT/ML VIAL SQ SCH ×4 (02:27→20:07)
[2021-09-23] MEDS: SODIUM CHLORIDE 0.45% 1,000 ML IV SCH (02:27)
[2021-09-23 04:52] LABS: Basophils % (A) 0 %; Eosinophils % (A) 0 %; HCT 29.2 % (34.0-46.0); HGB 9.3 gm/dL (11.4-16.0); Lymphocytes # (A) 0.9 k/uL (1.0-4.8); Lymphocytes % (A) 9 %; MCHC 31.8 g/dL (31.0-37.0); MCV 100.6 fL (80.0-100.0); Macrocytosis Slight; Mean Platelet Volume 9.8; Monocytes # (A) 0.2 k/uL (0-1.0); Monocytes % (A) 2 %; Neutrophils # (A) 8.7 k/uL (1.3-7.7); Neutrophils % (A) 87 %; Platelet Count 341 k/uL (150-450); RBC 2.91 m/uL (3.80-5.40); RDW 14.3 % (11.5-15.5)
[2021-09-23] MEDS ORDERED: VANCOMYCIN TROUGH DUE 1 EACH MISC MISCELLANE ONE (05:00)
[2021-09-23 05:26] LABS: ABG Base Excess 5.3 mmol/L; ABG HCO3 29 mmol/L (21-25); ABG Oxygen Saturation 95.8 % (94-97); ABG PCO2 39 mmHg (35-45); ABG PH 7.48 (7.35-7.45); ABG PO2 80 mmHg (83-108); ABG TCO2 30 mmol/L (19-24); Allen Test Performed? Yes
[2021-09-23 05:30] LABS: ALT 176 U/L (4-34); AST 371 U/L (14-36); African American GFR (CKD) >90 (>60 ml/min/1.73 sqM); Albumin 2.4 g/dL (3.5-5.0); Alkaline Phosphatase 54 U/L (38-126); Anion Gap 6 mmol/L; Blood Urea Nitrogen 23 mg/dL (7-17); Calcium 8.2 mg/dL (8.4-10.2); Carbon Dioxide 27 mmol/L (22-30); Chloride 106 mmol/L (98-107); Glucose 78 mg/dL (74-99); Non-African American GFR(CKD) >90 (>60 ml/min/1.73 sqM); Potassium 3.6 mmol/L (3.5-5.1); Sodium 139 mmol/L (137-145); Total Bilirubin 0.7 mg/dL (0.2-1.3); Total Protein 5.4 g/dL (6.3-8.2)
[2021-09-23] MEDS ORDERED: POTASSIUM CHLORIDE 20 MEQ in WATER FOR INJECTION 1 100ML.BAG IVPB STA (05:44)
[2021-09-23 05:58] LABS: Glucose,Whole Blood 79 mg/dL (75-99)
[2021-09-23] MEDS: VANCOMYCIN 1,250 MG in SODIUM CHLORIDE 0.9% 250 ML IVPB SCH (06:12)
--- NOTE | 2021-09-23 07:08 | XR ---
EXAMINATION TYPE: XR chest 1V portable DATE OF EXAM: 09/23/2021 CLINICAL HISTORY: Difficulty breathing progress study. TECHNIQUE: Single AP portable semiupright view of the chest is obtained. COMPARISON: Chest x-ray from one day earlier and older studies. FINDINGS: Stable endotracheal and orogastric tubes. Cardiac silhouette size is stable and within normal limits with single lead pacemaker/AICD. Backgroun d Chronic emphysematous change with left basilar opacity redemonstrated. Right lung remains clear. Os seous structures are intact. IMPRESSION: Chronic emphysematous change with left basilar acute infiltrate and/or atelectasis and li walter small left pleural effusion are all redemonstrated. No significant change from most recent studi es.
[2021-09-23] MEDS ORDERED: VANCOMYCIN 1,000 MG in SODIUM CHLORIDE 0.9% 250 ML IVPB SCH (08:00)
[2021-09-23] MEDS: levETIRAcetam IV 1,500 MG in SALINE 1 100ML.BAG IVPB SCH ×2 (09:01→20:07)
[2021-09-23] MEDS: AMIODARONE 200 MG TAB PO SCH (09:01)
[2021-09-23] MEDS: PANTOPRAZOLE 40 MG/10 ML VIAL IV SCH (09:01)
[2021-09-23] MEDS: CHLORHEXIDINE GLUCONATE 15 ML CUP MUCOUS MEM SCH ×2 (09:01→20:07)
[2021-09-23] MEDS: carBAMazepine 200 MG TAB PO SCH ×3 (09:01→22:54)
[2021-09-23] MEDS: DEXAMETHASONE SOD PHOSPHATE 10 MG/ML 1 ML VIAL IVP SCH (09:02)
[2021-09-23] MEDS: CHOLECALCIFEROL 125 MCG (5000 IU) TABLET PO SCH (09:02)
--- NOTE | 2021-09-23 09:14 | P.PN ---
Subjective Progress Note Date: 09/23/21 Principal diagnosis: Respiratory failure. Reevaluated today on 09/18/21, patient remains in the ICU, intubated and mechanically ventilated. Patient is not making any significant neurological improvement. She has been off sedation for few days, yesterday we started the patient only on Precedex, and that's mostly to keep her synchronous with the ventilator. Again her mental status is basically about the same, and she is not showing much improvement. She opens eyes slightly to deep painful stimuli, but no purposeful movement and no responses to verbal stimuli. She is on assist control rate of 32 tidal volume 325 FiO2 was 50% and PEEP was 8 however I cut down her FiO2 to 45%. Patient is receiving enteral feeding, vital AF at 34 mL per hour. ABG today showed a pO2 of 107 pCO2 44 pH of 7.46. Basic metabolic profile is normal WBC count is 7.6 hemoglobin is 9.5. No significant metabolic abnormality to explain her encephalopathy at this point. Patient is still being followed by neurology on the case. Patient is still being treated for coronary virus infection, and UTI on admission secondary to E. coli. 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 No acute process was noted. Patient remains on seizure medications as per neurology including Keppra and Tegretol. EEG showed slowing/moderate degree of slowing suggestive of generalized cerebral dysfunction. This is seen with toxic metabolic encephalopathy. Reevaluated today on 09/19/21, patient remains in the ICU, intubated and mechanically ventilated, she is on assist control rate of 32 tidal volume of 325 FiO2 45% and PEEP of 8. Patient had to be placed on propofol yesterday at 50 mcg/kg/m, she is on IV fluid at 50 mL per hour. ABG showed a pO2 of 78 pCO2 of 47 pH of 7.44. Chest x-ray is basically about, no change. WBC count is 9.2 hemoglobin is 10.3. Electrolytes are normal. Again the patient had to be placed back on propofol because she was getting agitated, restless, and not syn chronous with the ventilator yesterday. Remains on propofol today, and patient is not responding to any stimuli. Hence I'm keeping her on propofol, I believe the patient will eventually require tracheostomy and PEG tube placement unless CODE STATUS is changed to comfort care. Chest x-ray is basically showing no significant abnormalities. She does have mild pulmonary vascular congestion. Reevaluated today on 09/20/21, patient remains in the ICU, intubated and mechanically ventilated. She is on assist control rate of 32 tidal volume 325 FiO2 is 45%, PEEP is at 8. Patient is back on propofol, intermittently has been receiving Dilaudid, patient becomes at times agitated, and asynchronous with the ventilator, early in the week, I was able to hold sedation for a number of days, however the patient remained unresponsive to verbal stimuli, and apparently she had significant toxic metabolic encephalopathy. CT of the brain was nondiagnostic. Patient was seen by neurology on consultation, and still believe that this is a occipital metabolic encephalopathy picture. Patient is on propofol now at 50 mcg/kg/m, not requiring any other sedatives or narcotics. Patient has been feeding/enteral feeding vital AF at 34 mL per hour. ABG today showed a pO2 of 101 pCO2 47 pH of 7.44. Chest x-ray continues to show retrocardiac density likely atelectasis, otherwise no significant findings on the chest x-ray Progress note dated 09/21/2021. This is a 51-year-old female, who was admitted to the hospital on September 10. She came in with mental status changes, sepsis, and hypernatremia. She came to the intensive care unit on September 10, and was intubated for respiratory failure on 09/11/2021. The patient did test positive for coronavirus. She remains on mechanical ventilator. The patient is on the volume assist control mode, rate 32, tidal volume 325, FiO2 45%, and PEEP of 8. Blood gases show pO2 of 91, pCO2 49, and pH is 7.45. The patient's getting half-normal saline at 50 mL an hour, propofol at 50 mcg/kg/m, and vital AF at 34 mL an hour, which is goal. White count 10.2, hemoglobin 9.7, hematocrit 30.4, and platelet count was normal. Sodium 139, potassium 3.5, chlorides 104, CO2 32, anion gap 3, BUN 34, and creatinine 0.65. Microbiologic studies show evidence of Escherichia coli in the urine from September 10, and presumptive staph aureus in the sputum from August 30 0. The chest x-ray shows left lower lobe atelectasis and/or infiltrates. The patient is currently on antifungals, and aztreonam. The infectious disease doctor is currently on the case. Progress note dated 09/22/2021. 51-year-old female who was admitted to the hospital on 09/10/2021. She came in with mental status changes, sepsis, and hypernatremia. She came to the intensive care unit on September 10, and was intubated for respiratory failure on 09/11/2021. She did test positive for coronavirus. She remains on the mechanical ventilator. The plan is for a tracheostomy and PEG tube placement today by one of the surgeons. The patient also had a right radial arterial line placed by our team. Currently, she is on the volume assist control mode, rate 32, tidal volume 325, FiO2 45%, PEEP of 8. Arterial blood gases show pO2 of 88, pCO2 46, and a pH is 7.48. The patient is on propofol at 40 mcg/kg/m, saline at 20 mL an hour, half-normal saline at 50 mL an hour, and vital, at 46 mL an hour, which is goal. Obviously, tube feeds on hold for anticipated surgery today. White count 9.3, hemoglobin 8.8, hematocrit 27.3, and platelet count 269,000. Sodium 139, potassium 3.4, chlorides 104, CO2 33, anion gap 2, BUN 26, and creatinine 0.54. AST 500, ALT 166. An ultrasound the right upper quadrant will be ordered. Chest x-ray shows persistent left lower lobe atelectasis and/or inf iltrate. Progress note dated 09/23/2021. This is a 51-year-old female, again seen in room 254. She's now been in the hospital for 13 days. She was admitted on 09/10/2021. She came in with mental status changes, and sepsis. She came to the intensive care unit on September 10, and was intubated respiratory failure on 09/11/2021. She did test positive for coronavirus. She remains on the mechanical ventilator. The patient was to have a tracheostomy and PEG tube placement performed. It was to be done yesterday but for some reason did not take place. She remains on the volume assist control, rate 32, tidal volume 325, FiO2 45%, and PEEP of 8. Blood gases show pO2 80, pCO2 39, pH is 7.48. The patient's getting saline at 20 mL an hour, half-normal saline at 50 mL an hour, and tube feeds are currently on hold. White count 10, hemoglobin 9.3, hematocrit 29.2, and platelet count 341,000. Sodium 139, potassium 3.6, chlorides 106, CO2 27, anion gap 6, BUN 23, and creatinine 0.59. Albumin is 2.4. Microbiology from September 10, shows a urine that was positive for an E. coli, and a sputum from September 17, it is positive for Staphylococcus aureus. The patient is currently on vancomycin and Eraxis. Objective - Vital Signs Vital signs: Vital Signs Temp 98.4 F 09/23/21 04:00 Pulse 95 09/23/21 07:00 Resp 9 L 09/23/21 07:00 BP 125/71 09/22/21 22:00 Pulse Ox 94 L 09/23/21 07:00 Intake & Output 09/22/21 09/23/21 09/23/21 18:59 06:59 18:59 Intake Total 1484.917 937 Output Total 1926 1100 Balance -441.083 -163 Weight 60.8 kg 58.2 kg Intake: IV 1473 937 .9NS 20 240 260 Anidulafungin 100 mg In 130 Sodium Chloride 0.9% 100 ml @ 84 mls/hr IVPB DAILY @1700 ADDIE Rx#:[id number] Potassium Chloride 10 meq 200 In Water For Injection 1 100ml.bag @ 100 mls/hr IVPB Q1HR ADDIE Rx#: [id number] Pressure bag 3 27 Sodium Chloride 0.45% 1, 550 650 000 ml @ 50 mls/hr IV . Q20H ADDIE Rx#:[id number] Vancomycin 1,250 mg In 250 Sodium Chloride 0.9% 250 ml @ 125 mls/hr IVPB Q8H ADDIE Rx#:[id number] levETIRAcetam IV 1,500 mg 100 In Saline 1 100ml.bag @ 400 mls/hr IVPB Q12HR ADDIE Rx#:[id number] Intake, IV Titration 11.917 Amount propofoL 1,000 mg In 11.917 Empty Bag 1 bag @ Titrate IV .Q0M ADDIE Rx#: [id number] Tube Feeding 0 0 Output: Urine 192 1100 Stool 1 Other: Voiding Method Indwelling Catheter Indwelling Catheter Indwelling Catheter ABP, PAP, CO, CI - Last Documented Arterial Blood Pressure 133/51 - Exam No acute distress, currently off sedated, with an orally placed endotracheal tube and NG tube. HEENT examination is grossly unremarkable. Neck supple. Full range of motion. No adenopathy thyromegaly or neck vein distention. Cardiovascular examination reveals regular rhythm rate. S1-S2 normal. No S3 or S4. No discernible murmur noted. Heart rate 95 bpm. Heart sounds are distant. Lungs reveal bilateral expiratory rhonchi and wheezes. No crackles. Breath sounds are equal bilaterally. Saturations are 94%. Abdomen soft, without bowel sounds. No masses. Extremities are intact. No cyanosis or clubbing. Trace edema is noted. Skin is without rash or lesion. Neurologic examination reveals a poorly responsive individual, who does open her eyes, and is currently not on any sedatives. - Labs CBC & Chem 7: 09/23/21 04:25 09/23/21 04:25 Labs: Abnormal Lab Results - Last 24 Hours (Table) 09/22/21 09/23/21 09/23/21 Range/Units 12:05 04:25 04:25 RBC 2.91 L (3.80-5.40) m/uL Hgb 9.3 L (11.4-16.0) gm/dL Hct 29.2 L (34.0-46.0) % MCV 100.6 H (80.0-100.0) fL Neutrophils # 8.7 H (1.3-7.7) k/uL Lymphocytes # 0.9 L (1.0-4.8) k/uL ABG pH (7.35-7.45) ABG pO2 (83-108) mmHg ABG HCO3 (21-25) mmol/L ABG Total CO2 (19-24) mmol/L BUN 23 H (7-17) mg/dL POC Glucose (mg/dL) 101 H (75-99) mg/dL Calcium 8.2 L (8.4-10.2) mg/dL AST 371 H (14-36) U/L ALT 176 H (4-34) U/L Total Protein 5.4 L (6.3-8.2) g/dL Albumin 2.4 L (3.5-5.0) g/dL 09/23/21 Range/Units 05:21 RBC (3.80-5.40) m/uL Hgb (11.4-16.0) gm/dL Hct (34.0-46.0) % MCV (80.0-100.0) fL Neutrophils # (1.3-7.7) k/uL Lymphocytes # (1.0-4.8) k/uL ABG pH 7.48 H (7.35-7.45) ABG pO2 80 L (83-108) mmHg ABG HCO3 29 H (21-25) mmol/L ABG Total CO2 30 H (19-24) mmol/L BUN (7-17) mg/dL POC Glucose (mg/dL) (75-99) mg/dL Calcium (8.4-10.2) mg/dL AST (14-36) U/L ALT (4-34) U/L Total Protein (6.3-8.2) g/dL Albumin (3.5-5.0) g/dL Microbiology - Last 24 Hours (Table) 09/16/21 21:25 Blood Culture - Final Blood No Growth after 144 hours 09/17/21 23:51 Gram Stain - Final Sputum Sputum Culture - Final Radha glabrata Staphylococcus aureus Assessment and Plan Assessment: Acute hypoxemic respiratory failure secondary to coronavirus associated pneumonia, status post intubation and mechanical ventilation on 09/11/2021. Anticipated tracheostomy and PEG tube placement on 09/23/2021. Acute mental status changes, secondary to toxic/metabolic encephalopathy. Methicillin sensitive staph aureus pneumonia, left lower lobe. Dehydration, on admission, resolved. History of seizure disorder. Prior history of pulmonary embolism. Paroxysmal atrial fibrillation. Cardiomyopathy with ejection fraction of 30-35%. Status post pacemaker implantation. History of saccular PROPERTY TECHNICIAN aneurysm, 4 mm. Hypothyroidism. CAD. History of CVA in 2007. History of recurrent E. coli urinary tract infections. History of psoriasis. History of sacral/coccygeal decubitus ulcer. Plan: Plan dated 09/21/2021. Because of the patient's overall poor status, and the fact that she still is a full code, surgery will be consulted for possible tracheostomy and PEG tube placement. We will continue to follow make recommendations where appropriate. Again, prognosis is very poor. She remains on mechanical ventilator. She remains on appropriate antibiotics. Infectious diseases is following. We will continue to follow make recommendations where appropriate. Plan dated 09/22/2021. The patient is going to hopefully have a tracheostomy and PEG tube placement today. The patient remains on propofol at 40 mcg/kg/m. We did replace the arterial line. The previous arterial line was poorly functional. She had a right radial arterial line placed today by our team. A previous urine culture from September 10 showed Escherichia coli. Sputum from September 17 showed Radha, and presumptive Staphylococcus aureus. The patient remains on an antifungal, and vancomycin as per infectious diseases. Mariam follow and make recommendations where appropriate. Prognosis is certainly guarded. Plan dated 09/23/2021. The patient had methicillin sensitive staph aureus in the sputum and is currently on vancomycin. That can be changed to something other than vancomycin. The patient should have a tracheostomy and PEG tube placement today . It was to be done yesterday. The patient is currently off all sedation. Tube feedings on hold. Oxygenation and ventilation are excellent. We will continue to follow make recommendations where appropriate. Overall prognosis remains very guarded. Most recent brain CT shows old infarcts, with nothing acute and no major change. Time with Patient: Greater than 30
[2021-09-23] MEDS: ENOXAPARIN 40 MG/0.4 ML SYRINGE SQ SCH (09:22)
[2021-09-23] MEDS: LEVOFLOXACIN 500MG-D5W PMX 500 MG in DEXTROSE/WATER 1 100ML.BAG IVPB SCH (10:12)
[2021-09-23 12:14] LABS: Glucose,Whole Blood 86 mg/dL (75-99)
[2021-09-23] MEDS: HYDROmorphone 1 MG/ML 1 ML SYRINGE IVP PRN ×4 (12:17→23:42)
[2021-09-23] MEDS ORDERED: fentaNYL (PF) 50 MCG/ML 2 ML AMP ONE (13:45)
[2021-09-23] MEDS ORDERED: ROCURONIUM 10 MG/ML (5 ML VIAL) IV ONE (13:45)
--- NOTE | 2021-09-23 14:50 | P.OP ---
Date of Procedure: 09/23/21 Preoperative Diagnosis: Respiratory failure. Malnutrition Postoperative Diagnosis: Respiratory failure Malnutrition Procedure(s) Performed: Tracheostomy and PEG tube Anesthesia: SHALOM Surgeon: Terrell Loera Estimated Blood Loss (ml): 5 Pathology: none sent Condition: stable Disposition: PACU Description of Procedure: The patient's placed on the bed in the supine position. The patient received general anesthesia. The neck was prepped and draped in usual sterile fashion. A standard transverse skin incision was made approximately 2 cm above the sternal notch. Using electrocautery the subcutaneous tissues were divided. The platysma was divided. A Wheatlander retractor was placed in the wound. Next the strap muscles were divided in the midline. Another weatlander retractor was placed the wound. The pretracheal fat was then divided with left cautery. The trachea was exposed. At this point the RUBBLE PLACER advance the and the tracheal tube into the right mainstem bronchus. The balloon was inflated. A tracheotomy was then performed between the second and third tracheal rings. The perivascular tissues a gracilis the trachea. The endotracheal tube was brought back under direct vision. And then the #8 Portex tracheostomy tube was placed into the trachea. End-tidal CO2 was confirmed. The patient had been connected to the ventilator. The patient was ventilated satisfactory. The skin incision site was then closed with 3-0 nylon after the retractors were withdrawn. An umbilical tie was used to secure the tracheostomy tube. Next the gastroscope placed oropharynx passed in the esophagus and stomach. There is no evidence of any outlet obstruction. Stomach was insufflated with air. The light reflux seen the anterior abdominal wall. The abdomen was prepped and draped usual fashion. The skin was incised. And the needles placed and stomach under direct visualization. The needle was snared. And the wires placed through the needle and the wire was snared and brought the oropharynx. The PEG tube was placed over top the wire brought down to the stomach. The PEG tube was secured. At the 3 cm alia. The one-piece bolster was used. Patient tolerated procedure well.
[2021-09-23] MEDS: ANIDULAFUNGIN 100 MG in SODIUM CHLORIDE 0.9% 100 ML IVPB SCH (15:46)
[2021-09-23 18:11] LABS: Glucose,Whole Blood 88 mg/dL (75-99)
[2021-09-23 23:51] LABS: Glucose,Whole Blood 78 mg/dL (75-99)
--- NOTE | 2021-09-24 01:18 | P.PN ---
Subjective Progress Note Date: 09/23/21 This is a pleasant 51 years old female with past medical history of Coronary Artery Disease, Heart Failure, CVA/TIA, Pulmonary Embolus (PE), Seizure Disorder, Last seizure 2009, CVA 2007 with L sided weakness arm and leg and has L foot drop, TIA 2018, cardiomyopathy, R PE and pneumothorax/pneumonia following leg fracture in 1994, gestational diabetes with all pregnancies , bilateral glaucoma with surgery, psoriasis in the past, UTIs. She is a status post Pacemaker, history of Bilateral eye surgery for glaucoma, Anxiety, Depression, Current every day smoker Patient presents because of altered mental status. Information was limited from the patient. It was obtained from the chart and medical staff. Also as per family patient was able to go to the bathroom, was more lethargic and tired over the last day. While in the emergency room focal mild seizure is noticed On admission patient had and fever of 101. She is tachypneic at 26-40, tachycardic 110-140, also she is hypoxic saturating 72% on room air Labs showing WBC of 10.5, hemoglobin of 16.3, platelet count of 197. INR 1.7. Sodium 164, creatinine 1.7, lactic acid elevated 4.6. Liver enzymes elevated with AST 202 and ALT 81. Bilirubin is normal at 1.3. Urine analysis is highly suspicious of infection Urine drug screen is negative Cash versus positive Chest x-ray showing left perihilar and left lower lobe area of infiltrate and small effusion correlates for pneumonia CT of the brain without contrast showing no intracranial hemorrhage, evidence of remote ischemic change. However there is vague low attenuation near the left thalamus and left cerebral peduncle. Acute ischemia in the differential diagnosis. Recommend stat MRI of brain with MRSA osage of [place] as clinically warranted. In the emergency room patient was started on aztreonam and IV vancomycin, Keppra and heparin drip 09/11/2021 Patient today was still in the ICU, she was very weak and obtunded, she will wake up to certain stabilized and moans, she does not follow commands she cannot, gait she moved both extremities symmetrically. R on she had collapse of her left lung cancer and she has to be intubated and repeat chest x-ray showing better. A of the left lung. She is tachypneic with a breathing rate 22, no more fever since yesterday. Her sodium improved down to 144 and she was started on normal saline, creatinine 1.1, Ejection fraction showed 30-35% which is slice worsened from 06/2021 where it was 35-40% She remains on dexamethasone, IV vancomycin and clindamycin, heparin drip, Keppra and normal saline at 75 mL/h 09/12/2021 Patient with respiratory failures and she was intubated and placed on mechanical ventilation with pulmonary/critical care team following her mostly. There is no more seizure-like activity noticed. She still tachypneic with a breathing rate of 32 blood pressure 100/70, she is needing FiO2 of 80% and PEEP of 20. She has no more fevers since admission. Urine culture is growing gram-negative bacilli. Sodium is 146, WBCs is increased at 16.5 K. PH showing acidosis with 7.1 and elevated pCO2 at 83. Chest x-ray showing left sided opacities with near full. A of the left lung. Patient kept on antibiotics in the form of clindamycin and Levaquin and fluconazole. Also she remains on dexamethasone, and so a heparin to Lovenox. Also continued on seizure medication 1500 mg twice a day and IV fluids per pulmonary team. Neurology team on the case 09/13/2021 Patient remains intubated and sedated with pulmonary/critical care team following her closely. Her PEEP is lower today to 18. She remains on FiO2 of 50%. She is tachypneic at 32 about blood pressure is controlled. Her inflammatory markers are increased to LDH of 1009 and CRP of 25.1. Bicarb is elevated at 31 WBC is 17.7, sodium improved to 142. Creatinine improved to 0.6. Chest x-ray showed improving left lung infiltrate. PH is improved slightly 7.2 with pCO2 is slightly better at 79. Urine culture is growing E. coli which is sensitive to the antibiotics. Currently patient is covered with clindamycin, Levaquin and fluconazole. Also she is on dexamethasone 6 mg, Keppra 1500 mg and half-normal saline at 50 mL per hour Anticoagulation switch from heparin drip and to Lovenox 09/14/2021 Patient still intubated and sedated on mechanical ventilation with pulmonary/critical care team following her closely and just her vent setting. Today her FiO2 of 55%, and she is tachypneic at 33 breath per minute. Labs showing stable findings with sodium 141, creatinine 0.8, liver enzymes slightly elevated, LDH slightly down at 797 and CRP 2-3.2. Same leukocytosis at 14.7. Her pH is 7.2 and carbon dioxide is 82. D-dimer mildly elevated at 0.9, just x-ray showing bilateral infiltrate with no significant change from prior. She remains on the same antibiotic of clindamycin, Levaquin, dexamethasone, Keppra 1500 mg and half normal saline at 50 mL/h 09/15/2021 Patient in the ICU intubated and sedated, with pulmonary/critical care team following closely. FiO2 still 50%, hemodynamically showing both staple blood pressure 101/40, patient is tachypneic more than 30 per minutes. PEEP is lower. wbc of 11.3, hemoglobin 9.4, sodium 140, creatinine 0.8. chest x-ray: mild worsening infiltrate in the left lobe. patient continued with the same treatment of clindamycin, levaquin, dexamethasone, keppra and she received 1 l of normal saline today. 09/16/2021 Patient is seen and evaluated and follow-up continues to be closely monitored in the ICU. Multiple medical consultations following including infectious disease, pulmonary director funeral, and neurology. Patient continues on mechanical vent with an FiO2 of 50% and PEEP is 10. Weaning is being continued and PEEP is being titrated down to 8. Patient continues with sedation holidays and very minimal propofol and patient is now off Nimbex and very minimal stimulus noted. Patient response to painful stimulus minimally. Plan is for possible CT of the brain repeat this afternoon. Patient also being closely monitored for continued seizures of which she does have a past medical history of. Patient is also Covid positive and infectious disease is following and patient is maintained on clindamycin along with Levaquin. Chest x-ray today shows correlate for left lower lobe pneumonia versus atelectasis with possible associated effusion. 09/17/2021 Patient is seen in follow-up this morning closely monitored in the ICU. Neurology also following and patient is maintained on IV Keppra. Patient also continues on IV antibiotics in the form of aztreonam and clindamycin with infectious disease following. Patient urine culture showing E. coli. Chest x- ray today shows chronic emphysematous changes with left basilar acute infiltrate and/or atelectasis and likely small left pleural effusion all redemonstrated with no significant change from previous day. Neurology following And okay to resume anticoagulant as there is no evidence of new intracranial process or hemorrhage. Patient is off sedation and continues to be unresponsive. 09/18/2021 Patient is evaluated again this morning and continues to be in the ICU on mechanical vent and being closely monitored. FiO2 is at 45% and PEEP is 8. Patient continues to be off sedation with no response for over 24 hours. Neurology following as well and have discussed overall prognosis with family and family discussing with other family members about CODE STATUS and treatment plan moving forward. Infectious disease also following and patient is maintained on IV Levaquin along with clindamycin and aztreonam and will continue. Urine cultures finalized showing E. coli and sputum culture preliminary is pending at this time. 09/19/2020 Patient evaluated today in the ICU on mechanical ventilation. Fi02 at 45% with a PEEP of 8. Propofol infusing, Nimbex and Levophed are currently on hold. Pr ecedex discontinued. There has been no response, and mental status is not improving. Still no response to verbal stimuli. Patient is being followed closely by neurology for this and is on IV keppra and tegretol. EEG consistant with toxic metabolic encepholapthy. Repeat chest xray today shows similar opacities given patient rotation. Stable support tubes. Mild pulmonary vascular congestion correlate with serum BNP. Blood cultures negative, pending finalized, sputum negative so far. Labs reviewed today: WBC 9.2, hgb 10.3, sodium 138, potassium 3.8, BUN 33, Cr 0.76, glucose in the 110's, calcium 7.9, AST 250, ALT 78, Albumin 2.3. Vitals reviewed: Temp 97.4, HR 126, RR 44, Blood pressure 113/80, 96% oxygen saturation on mechanical ventilation. 09/20/2021 Patient evaluated in ICU on mechanical ventilation with an Fi02 of 45%, PEEP of 12. Chest xray today shows left lower lobe atelectasis versus pneumonia with similar findings as previous. BNP yesterday 12,500, however xray reviewed and d oes not appear to be showing heart failure. She is in negative fluid balance. Status was addressed with family by neurology who is awaiting a phone call back. White count 12.8, RBC 3.5, sodium 137 potassium 3.8, chloride 101, CO2 33, BUN 35, creatinine 0.68, blood sugars in the 120s, AST 424, ALT 115, alk phos 63. Running temps today 100.8, heart rate 123, respiratory rate 36, blood pressure 95/65, oxygen saturation of 93-94%. Blood pressures are on the softer side 88/55. Current infusions include propofol which has been resumed as patient has not shown any signs of neurological improvement while on a propofol break. 09/21/2021 Patient is seen in follow up today and continues to be on mechanical vent with an FI02 of 45% with a peep of 8 and multiple medical consultations following. Ch est xray similar from previous with copd and continued focal basilar left lower lobe retrocardiac consolidation or atelectasis. Patient is on propofol and general surgery has been consulted for peg and trach placement. Plan for surgery is tomorrow. 09/22/2021 Patient is seen and evaluated in follow-up this morning continues on mechanical ventilation with a PEEP of 8 and FiO2 is 45%. General surgery following an plan is for PEG and trach placement today due to prolonged mechanical ventilation and no improvements or weaning from the vent. Patient continues on tube feeding along with Lovenox which is currently on hold for the surgical procedure. Patient's chest x-ray today shows diffuse bilateral infiltrates that are stable with no pneumothorax or pleural effusion noted. Patient also had gallbladder ultrasound secondary to elevated liver functions and shows hepatomegaly otherwise unremarkable. Patient is continued on antifungal's along with vancomycin and infectious disease following closely. Sputum cultures preliminary showing Radha glabrata and Staphylococcus aureus and most recent blood cultures have been negative. 09/23/2021 Patient is seen in follow-up this morning and patient was unable to receive PEG and trach with general surgery following yesterday and plan is for today. Patient continues on mechanical vent and FiO2 is 45% with a PEEP of 8. Lovenox and tube feeding currently on hold. Chest xray reviewed and no acute changes from yesterday. Continues to be unresponsive. Prognosis remains poor. Review of systems: Unable to obtain as patient continues to be on mechanical ventilation and sedated Labs: WBC is 10.0, hemoglobin is 9.3, platelets are 341, sodium is 139, potassium 3.6, BUN 23, creatinine 0.59, calcium 8.2, AST 371, ALT 176, alk phos 54, Vanco trough 24.5 Active Medications Acetaminophen (Acetaminophen Tab 325 Mg Tab) 650 mg PO Q6HR PRN PRN Reason: Fever and/ or Pain Last Admin: 09/21/21 23:30 Dose: 650 mg Documented by: Amiodarone HCl (Amiodarone 200 Mg Tab) 200 mg PO DAILY [facility] Last Admin: 09/23/21 09:01 Dose: 200 mg Documented by: Artificial Tears (Artificial Tears-Hypromellose Drops 15 Ml Btl) 1 drops BOTH EYES QID PRN PRN Reason: Dry Eye(s) Last Admin: 09/16/21 08:58 Dose: 1 drops Documented by: Carbamazepine (Carbamazepine 200 Mg Tab) 200 mg PO TID [facility] Last Admin: 09/23/21 09:01 Dose: 200 mg Documented by: Chlorhexidine Gluconate (Chlorhexidine Gluconate 15 Ml Cup) 15 ml MUCOUS MEM BID [facility] Last Admin: 09/23/21 09:01 Dose: 15 ml Documented by: Cholecalciferol (Cholecalciferol 125 Mcg (5000 Iu) Tablet) 125 mcg PO DAILY [facility] Last Admin: 09/23/21 09:02 Dose: 125 mcg Documented by: Dexamethasone Sodium Phosphate (Dexamethasone Sod Phosphate 10 Mg/Ml 1 Ml Vial) 6 mg IVP DAILY [facility] Last Admin: 09/23/21 09:02 Dose: 6 mg Documented by: Enoxaparin Sodium (Enoxaparin 40 Mg/0.4 Ml Syringe) 40 mg SQ DAILY [facility] Last Admin: 09/23/21 09:22 Dose: Not Given Documented by: Hydromorphone HCl (Hydromorphone 1 Mg/Ml 1 Ml Syringe) 1 mg IVP Q2H PRN PRN Reason: Pain Last Admin: 09/23/21 12:17 Dose: 1 mg Documented by: Levetiracetam 1,500 mg/ IV (Solution) 100 mls @ 400 mls/hr IVPB Q12HR [facility] Last Admin: 09/23/21 09:01 Dose: 400 mls/hr Documented by: Sodium Chloride (Saline 0.45%) 1,000 mls @ 50 mls/hr IV .Q20H [facility] Last Admin: 09/23/21 02:27 Dose: 50 mls/hr Documented by: Anidulafungin 100 mg/ Sodium (Chloride) 130 mls @ 84 mls/hr IVPB DAILY@1700 [facility] Last Admin: 09/22/21 16:31 Dose: 84 mls/hr Documented by: Propofol 1,000 mg/ IV Solution 100 mls @ 0 mls/hr IV .Q0M [facility]; Protocol Last Titration: 09/22/21 10:35 Dose: 20 mcg/kg/min, 7.296 mls/hr Documented by: Levofloxacin 500 mg/ IV (Solution) 100 mls @ 100 mls/hr IVPB Q24H [facility] Last Admin: 09/23/21 10:12 Dose: 100 mls/hr Documented by: Insulin Aspart (Insulin Aspart (Novolog) 100 Unit/Ml Vial) 0 unit SQ Q6H [facility]; Protocol Last Admin: 09/23/21 12:16 Dose: Not Given Documented by: Miscellaneous Information (Potassium Replacement Protocol 1 Each Misc) 1 each MISCELLANE DAILY PRN; Protocol PRN Reason: Per Protocol Naloxone HCl (Naloxone 0.4 Mg/Ml 1 Ml Vial) 0.2 mg IV Q2M PRN PRN Reason: Opioid Reversal Pantoprazole Sodium (Pantoprazole 40 Mg/10 Ml Vial) 40 mg IV DAILY [facility] Last Admin: 09/23/21 09:01 Dose: 40 mg Documented by: Physical exam: GENERAL: The patient is intubated and sedated, FiO2 is 45% and PEEP is 8 HEENT: Pupils are round and equally reacting to light. EOMI. No scleral icterus. No conjunctival pallor. Normocephalic, atraumatic. No pharyngeal erythema. No thyromegaly. CARDIOVASCULAR: S1 and S2 present. No murmurs, rubs, or gallops. PULMONARY: Chest is clear to auscultation, no wheezing or crackles. ABDOMEN: Soft, nontender, nondistended, normoactive bowel sounds. No palpable organomegaly. MUSCULOSKELETAL: No joint swelling or deformity. EXTREMITIES: No cyanosis, clubbing, or pedal edema. NEUROLOGICAL: unresponsive, remains sedated SKIN: No rashes. no petechiae. Assessment: Altered mental status could be metabolic/toxic encephalopathy, ruled out other intracranial lesions, and possibly secondary to seizure status post peg tube and tracheostomy placement Left lower lobe pneumonia, rule out aspiration pneumonia Acute urinary tract infection, present on admission with culture showing E. coli Sepsis secondary to UTI and pneumonia Breakthrough seizure Bilateral interstitial Covid 19 pneumonia Acute hypoxic respiratory failure secondary to COVID-19 pneumonia requiring mechanical ventilation Increased inflammatory markers elevated troponin, most likely type II ischemia. Rule out primary cardiac causes Cardiomyopathy with most recent EF of 30-35% Hypernatremia, improved Acute kidney injury, improved Mild elevated liver enzymes History of coronary artery disease History of pulmonary embolism History of seizure disorder, last seizure was in 2009 as per documents History 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 left foot drop History of glaucoma status post surgery Status post permanent pacemaker Nicotine dependence GI prophylaxis DVT prophylaxis Full code Plan: This is a pleasant 51 years old female who presented with altered mental status, pneumonia, UTI, possible stroke although most likely old infarcts noted on CT, seizure and positive for covid pneumonia patient was intubated and continues on mechanical ventilation with a FiO2 of 45% and PEEP is 8. General surgery fo santosh and performed PEG and trach placement today. Tube feedings and lovenox on hold. Continue with Keppra and neurology following and patient has been off sedation and continues to be unresponsive. CT of the brain shows old right hemisphere infarct without change old left posterior frontal lobe cortical infarct without change and no acute abnormality. Patient is currently back on Propofol pulmonary and infectious disease following, continue the broad-spectrum antibiotics in the form of levaquin along with antifungals Continue with dexamethasone, vitamin and zinc supplements along with Lovenox, Lovenox and tube feedings currently on hold as patient is scheduled for PEG and trach placement today. Cardiology team evaluated the patient for elevated troponin, patient does not have A. fib per senior living advisor Family aware of overall poor and guarded prognosis and would like to continue w ith full code status and have elected to proceed with peg and trach placement. status post peg and trach today. Overall Prognosis remains poor and extremely guarded Objective - Vital Signs Vital signs: Vital Signs Temp 98.4 F 09/23/21 04:00 Pulse 95 09/23/21 07:00 Resp 9 L 09/23/21 07:00 BP 125/71 09/22/21 22:00 Pulse Ox 94 L 09/23/21 07:00 Intake & Output 09/22/21 09/23/21 09/23/21 18:59 06:59 18:59 Intake Total 1484.917 937 Output Total 1926 1100 Balance -441.083 -163 Weight 60.8 kg 58.2 kg Intake: IV 1473 937 .9NS 20 240 260 Anidulafungin 100 mg In 130 Sodium Chloride 0.9% 100 ml @ 84 mls/hr IVPB DAILY @1700 [facility] Rx#:[id number] Potassium Chloride 10 meq 200 In Water For Injection 1 100ml.bag @ 100 mls/hr IVPB Q1HR [facility] Rx#: [id number] Pressure bag 3 27 Sodium Chloride 0.45% 1, 550 650 000 ml @ 50 mls/hr IV . Q20H [facility] Rx#:[id number] Vancomycin 1,250 mg In 250 Sodium Chloride 0.9% 250 ml @ 125 mls/hr IVPB Q8H [facility] Rx#:[id number] levETIRAcetam IV 1,500 mg 100 In Saline 1 100ml.bag @ 400 mls/hr IVPB Q12HR [facility] Rx#:[id number] Intake, IV Titration 11.917 Amount propofoL 1,000 mg In 11.917 Empty Bag 1 bag @ Titrate IV .Q0M [facility] Rx#: [id number] Tube Feeding 0 0 Output: Urine 1925 1100 Stool 1 Other: Voiding Method Indwelling Catheter Indwelling Catheter Indwelling Catheter ABP, PAP, CO, CI - Last Documented Arterial Blood Pressure 133/51 - Labs CBC & Chem 7: 09/23/21 04:25 09/23/21 04:25 Labs: Abnormal Lab Results - Last 24 Hours (Table) 09/22/21 09/23/21 09/23/21 Range/Units 12:05 04:25 04:25 RBC 2.91 L (3.80-5.40) m/uL Hgb 9.3 L (11.4-16.0) gm/dL Hct 29.2 L (34.0-46.0) % MCV 100.6 H (80.0-100.0) fL Neutrophils # 8.7 H (1.3-7.7) k/uL Lymphocytes # 0.9 L (1.0-4.8) k/uL ABG pH (7.35-7.45) ABG pO2 (83-108) mmHg ABG HCO3 (21-25) mmol/L ABG Total CO2 (19-24) mmol/L BUN 23 H (7-17) mg/dL POC Glucose (mg/dL) 101 H (75-99) mg/dL Calcium 8.2 L (8.4-10.2) mg/dL AST 371 H (14-36) U/L ALT 176 H (4-34) U/L Total Protein 5.4 L (6.3-8.2) g/dL Albumin 2.4 L (3.5-5.0) g/dL 09/23/21 Range/Units 05:21 RBC (3.80-5.40) m/uL Hgb (11.4-16.0) gm/dL Hct (34.0-46.0) % MCV (80.0-100.0) fL Neutrophils # (1.3-7.7) k/uL Lymphocytes # (1.0-4.8) k/uL ABG pH 7.48 H (7.35-7.45) ABG pO2 80 L (83-108) mmHg ABG HCO3 29 H (21-25) mmol/L ABG Total CO2 30 H (19-24) mmol/L BUN (7-17) mg/dL POC Glucose (mg/dL) (75-99) mg/dL Calcium (8.4-10.2) mg/dL AST (14-36) U/L ALT (4-34) U/L Total Protein (6.3-8.2) g/dL Albumin (3.5-5.0) g/dL Microbiology - Last 24 Hours (Table) 09/16/21 21:25 Blood Culture - Final Blood No Growth after 144 hours 09/17/21 23:51 Gram Stain - Final Sputum Sputum Culture - Final Radha glabrata Staphylococcus aureus
[2021-09-24 04:54] LABS: Basophils % (A) 0 %; Eosinophils % (A) 0 %; HCT 29.5 % (34.0-46.0); HGB 9.5 gm/dL (11.4-16.0); Lymphocytes # (A) 0.7 k/uL (1.0-4.8); Lymphocytes % (A) 8 %; MCH 32.2 pg (25.0-35.0); MCHC 32.1 g/dL (31.0-37.0); MCV 100.6 fL (80.0-100.0); Macrocytosis Slight; Mean Platelet Volume 9.3; Monocytes # (A) 0.2 k/uL (0-1.0); Monocytes % (A) 3 %; Neutrophils % (A) 88 %; Platelet Count 364 k/uL (150-450); RBC 2.93 m/uL (3.80-5.40); RDW 14.5 % (11.5-15.5); WBC 9.1 k/uL (3.8-10.6)
[2021-09-24 05:12] LABS: ALT 159 U/L (4-34); AST 229 U/L (14-36); African American GFR (CKD) >90 (>60 ml/min/1.73 sqM); Albumin 2.6 g/dL (3.5-5.0); Alkaline Phosphatase 60 U/L (38-126); Anion Gap 6 mmol/L; Blood Urea Nitrogen 19 mg/dL (7-17); Calcium 8.2 mg/dL (8.4-10.2); Carbon Dioxide 26 mmol/L (22-30); Chloride 101 mmol/L (98-107); Glucose 84 mg/dL (74-99); Non-African American GFR(CKD) >90 (>60 ml/min/1.73 sqM); Potassium 3.4 mmol/L (3.5-5.1); Sodium 133 mmol/L (137-145); Total Bilirubin 0.6 mg/dL (0.2-1.3); Total Protein 5.4 g/dL (6.3-8.2)
[2021-09-24] MEDS ORDERED: Potassium Replacement Protocol 1 EACH MISC MISCELLANE PRN (05:53)
[2021-09-24] MEDS: SODIUM CHLORIDE 0.45% 1,000 ML IV SCH ×2 (05:54→20:16)
[2021-09-24 06:01] LABS: ABG HCO3 27 mmol/L (21-25); ABG Oxygen Saturation 94.9 % (94-97); ABG PCO2 39 mmHg (35-45); ABG PH 7.45 (7.35-7.45); ABG PO2 79 mmHg (83-108); ABG TCO2 28 mmol/L (19-24); Allen Test Performed? Yes
[2021-09-24] MEDS: INSULIN ASPART (NovoLOG) 100 UNIT/ML VIAL SQ SCH ×4 (06:14→18:55)
[2021-09-24] MEDS: POTASSIUM BICARBONATE/CIT AC 20 MEQ TABLET.EFF NG-TUBE SCH ×2 (06:14→06:59)
[2021-09-24] MEDS: AMIODARONE 200 MG TAB PO SCH (08:58)
[2021-09-24] MEDS: PANTOPRAZOLE 40 MG/10 ML VIAL IV SCH (08:58)
[2021-09-24] MEDS: DEXAMETHASONE SOD PHOSPHATE 10 MG/ML 1 ML VIAL IVP SCH (08:58)
[2021-09-24] MEDS: CHLORHEXIDINE GLUCONATE 15 ML CUP MUCOUS MEM SCH ×2 (08:58→20:22)
[2021-09-24] MEDS: CHOLECALCIFEROL 125 MCG (5000 IU) TABLET PO SCH (08:58)
--- NOTE | 2021-09-24 08:58 | XR ---
EXAMINATION TYPE: XR chest 1V portable DATE OF EXAM: 09/24/2021 Comparison: 09/23/2021 Clinical History: 51-year-old female assess lungs Findings: Tracheostomy cannula satisfactory. Heart normal size. Hyperinflation. Improving left pleural effusion . Some mild patchy retrocardiac opacity remains. Left anterior chest wall pacemaker generator with ri ght ventricular AICD lead. Impression: COPD with a improvement in previous left effusion. Mild patchy retrocardiac atelectasis/infiltrate re loree.
[2021-09-24] MEDS: carBAMazepine 200 MG TAB PO SCH ×3 (08:59→20:31)
[2021-09-24] MEDS: ENOXAPARIN 40 MG/0.4 ML SYRINGE SQ SCH (08:59)
[2021-09-24] MEDS: QUEtiapine 25 MG TAB PO SCH ×2 (09:00→20:23)
[2021-09-24] MEDS: levETIRAcetam IV 1,500 MG in SALINE 1 100ML.BAG IVPB SCH ×2 (09:05→20:22)
[2021-09-24] MEDS: LEVOFLOXACIN 500MG-D5W PMX 500 MG in DEXTROSE/WATER 1 100ML.BAG IVPB SCH (10:25)
--- NOTE | 2021-09-24 10:35 | P.PN ---
Subjective Progress Note Date: 09/24/21 Principal diagnosis: Respiratory failure. Reevaluated today on 09/18/21, patient remains in the ICU, intubated and mechanically ventilated. Patient is not making any significant neurological improvement. She has been off sedation for few days, yesterday we started the patient only on Precedex, and that's mostly to keep her synchronous with the ventilator. Again her mental status is basically about the same, and she is not showing much improvement. She opens eyes slightly to deep painful stimuli, but no purposeful movement and no responses to verbal stimuli. She is on assist control rate of 32 tidal volume 325 FiO2 was 50% and PEEP was 8 however I cut down her FiO2 to 45%. Patient is receiving enteral feeding, vital AF at 34 mL per hour. ABG today showed a pO2 of 107 pCO2 44 pH of 7.46. Basic metabolic profile is normal WBC count is 7.6 hemoglobin is 9.5. No significant metabolic abnormality to explain her encephalopathy at this point. Patient is still being followed by neurology on the case. Patient is still being treated for coronary virus infection, and UTI on admission secondary to E. coli. 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 No acute process was noted. Patient remains on seizure medications as per neurology including Keppra and Tegretol. EEG showed slowing/moderate degree of slowing suggestive of generalized cerebral dysfunction. This is seen with toxic metabolic encephalopathy. Reevaluated today on 09/19/21, patient remains in the ICU, intubated and mechanically ventilated, she is on assist control rate of 32 tidal volume of 325 FiO2 45% and PEEP of 8. Patient had to be placed on propofol yesterday at 50 mcg/kg/m, she is on IV fluid at 50 mL per hour. ABG showed a pO2 of 78 pCO2 of 47 pH of 7.44. Chest x-ray is basically about, no change. WBC count is 9.2 hemoglobin is 10.3. Electrolytes are normal. Again the patient had to be placed back on propofol because she was getting agitated, restless, and not syn chronous with the ventilator yesterday. Remains on propofol today, and patient is not responding to any stimuli. Hence I'm keeping her on propofol, I believe the patient will eventually require tracheostomy and PEG tube placement unless CODE STATUS is changed to comfort care. Chest x-ray is basically showing no significant abnormalities. She does have mild pulmonary vascular congestion. Reevaluated today on 09/20/21, patient remains in the ICU, intubated and mechanically ventilated. She is on assist control rate of 32 tidal volume 325 FiO2 is 45%, PEEP is at 8. Patient is back on propofol, intermittently has been receiving Dilaudid, patient becomes at times agitated, and asynchronous with the ventilator, early in the week, I was able to hold sedation for a number of days, however the patient remained unresponsive to verbal stimuli, and apparently she had significant toxic metabolic encephalopathy. CT of the brain was nondiagnostic. Patient was seen by neurology on consultation, and still believe that this is a occipital metabolic encephalopathy picture. Patient is on propofol now at 50 mcg/kg/m, not requiring any other sedatives or narcotics. Patient has been feeding/enteral feeding vital AF at 34 mL per hour. ABG today showed a pO2 of 101 pCO2 47 pH of 7.44. Chest x-ray continues to show retrocardiac density likely atelectasis, otherwise no significant findings on the chest x-ray Progress note dated 09/21/2021. This is a 51-year-old female, who was admitted to the hospital on September 10. She came in with mental status changes, sepsis, and hypernatremia. She came to the intensive care unit on September 10, and was intubated for respiratory failure on 09/11/2021. The patient did test positive for coronavirus. She remains on mechanical ventilator. The patient is on the volume assist control mode, rate 32, tidal volume 325, FiO2 45%, and PEEP of 8. Blood gases show pO2 of 91, pCO2 49, and pH is 7.45. The patient's getting half-normal saline at 50 mL an hour, propofol at 50 mcg/kg/m, and vital AF at 34 mL an hour, which is goal. White count 10.2, hemoglobin 9.7, hematocrit 30.4, and platelet count was normal. Sodium 139, potassium 3.5, chlorides 104, CO2 32, anion gap 3, BUN 34, and creatinine 0.65. Microbiologic studies show evidence of Escherichia coli in the urine from September 10, and presumptive staph aureus in the sputum from August 30 0. The chest x-ray shows left lower lobe atelectasis and/or infiltrates. The patient is currently on antifungals, and aztreonam. The infectious disease doctor is currently on the case. Progress note dated 09/22/2021. 51-year-old female who was admitted to the hospital on 09/10/2021. She came in with mental status changes, sepsis, and hypernatremia. She came to the intensive care unit on September 10, and was intubated for respiratory failure on 09/11/2021. She did test positive for coronavirus. She remains on the mechanical ventilator. The plan is for a tracheostomy and PEG tube placement today by one of the surgeons. The patient also had a right radial arterial line placed by our team. Currently, she is on the volume assist control mode, rate 32, tidal volume 325, FiO2 45%, PEEP of 8. Arterial blood gases show pO2 of 88, pCO2 46, and a pH is 7.48. The patient is on propofol at 40 mcg/kg/m, saline at 20 mL an hour, half-normal saline at 50 mL an hour, and vital, at 46 mL an hour, which is goal. Obviously, tube feeds on hold for anticipated surgery today. White count 9.3, hemoglobin 8.8, hematocrit 27.3, and platelet count 269,000. Sodium 139, potassium 3.4, chlorides 104, CO2 33, anion gap 2, BUN 26, and creatinine 0.54. AST 500, ALT 166. An ultrasound the right upper quadrant will be ordered. Chest x-ray shows persistent left lower lobe atelectasis and/or inf iltrate. Progress note dated 09/23/2021. This is a 51-year-old female, again seen in room 254. She's now been in the hospital for 13 days. She was admitted on 09/10/2021. She came in with mental status changes, and sepsis. She came to the intensive care unit on September 10, and was intubated respiratory failure on 09/11/2021. She did test positive for coronavirus. She remains on the mechanical ventilator. The patient was to have a tracheostomy and PEG tube placement performed. It was to be done yesterday but for some reason did not take place. She remains on the volume assist control, rate 32, tidal volume 325, FiO2 45%, and PEEP of 8. Blood gases show pO2 80, pCO2 39, pH is 7.48. The patient's getting saline at 20 mL an hour, half-normal saline at 50 mL an hour, and tube feeds are currently on hold. White count 10, hemoglobin 9.3, hematocrit 29.2, and platelet count 341,000. Sodium 139, potassium 3.6, chlorides 106, CO2 27, anion gap 6, BUN 23, and creatinine 0.59. Albumin is 2.4. Microbiology from September 10, shows a urine that was positive for an E. coli, and a sputum from September 17, it is positive for Staphylococcus aureus. The patient is currently on vancomycin and Eraxis. Progress note dated 09/24/2021. 51-year-old female, again seen in room 254. The patient underwent tracheostomy and PEG tube placement yesterday, on September 23. The patient is now been in the hospital for 14 days. The patient was admitted on 09/10/2021. She did test positive for coronavirus. The patient was intubated on 09/11/2021, for respiratory failure. Currently, she is on volume assist control, rate 32, tidal volume 325, FiO2 40%, and PEEP of 8. Arterial blood gases show pO2 of 79, pCO2 39, pH is 7.45. The patient's getting half-normal saline at 50 mL an hour. She is on propofol at 40 mcg/kg/m. Tube feedings are still on hold. She's getting an antifungal, as well as Levaquin. Labs include a white count 9.1, hemoglobin 9.5, hematocrit 29.5 and platelet count which is normal. Sodium 133, potassium 3.4, chlorides 101, CO2 26, anion gap 6, BUN 19, and creatinine 0.53. AST is 229, and ALTs 159. Microbiologic studies are positive for a urine sample from September 10, for E. coli, and methicillin sensitive staph aureus in the sputum from September 17. Chest x-ray shows patchy bibasilar and bilateral infiltrates. Objective - Vital Signs Vital signs: Vital Signs Temp 99.1 F 09/24/21 09:00 Pulse 105 H 09/24/21 10:00 Resp 34 H 09/24/21 10:00 BP 125/71 09/24/21 03:00 Pulse Ox 96 09/24/21 10:00 Intake & Output 09/23/21 09/24/21 09/24/21 18:59 06:59 18:59 Intake Total 1413.212 446.788 299 Output Total 1370 1215 425 Balance 43.212 -768.212 -126 Weight 59.2 kg Intake: IV 1061 349 299 .9NS 20 140 260 40 Pressure bag 21 39 9 Sodium Chloride 0.45% 1, 550 50 150 000 ml @ 50 mls/hr IV . Q20H ADDIE Rx#:[id number] Vancomycin 1,250 mg In 250 Sodium Chloride 0.9% 250 ml @ 125 mls/hr IVPB Q8H ADDIE Rx#:[id number] levETIRAcetam IV 1,500 mg 100 100 In Saline 1 100ml.bag @ 400 mls/hr IVPB Q12HR ADDIE Rx#:[id number] Intake, IV Titration 352.212 97.788 Amount Levofloxacin 500Mg-D5w 100 Pmx 500 mg In Dextrose/ Water 1 100ml.bag @ 100 mls/hr IVPB Q24H ADDIE Rx#: [id number] Vancomycin 1,000 mg In 250 Sodium Chloride 0.9% 250 ml @ 125 mls/hr IVPB Q12H ADDIE Rx#:[id number] propofoL 1,000 mg In 2.212 97.788 Empty Bag 1 bag @ Titrate IV .Q0M ADDIE Rx#: [id number] Output: Urine 1370 1215 425 Other: Voiding Method Indwelling Catheter Indwelling Catheter ABP, PAP, CO, CI - Last Documented Arterial Blood Pressure 140/51 - Exam No acute distress, currently on propofol, with a midline tracheostomy. HEENT examination is grossly unremarkable. Neck supple. Full range of motion. No adenopathy thyromegaly or neck vein distention. Benign tracheostomy is noted. Cardiovascular examination reveals regular rhythm rate. S1-S2 normal. No S3 or S4. No discernible murmur noted. Heart rate 105 bpm. Heart sounds are distant. Lungs reveal bilateral expiratory rhonchi and wheezes. No crackles. Breath sounds are equal bilaterally. Saturations are 96%. Abdomen soft, without bowel sounds. No masses. PEG tube is noted. Extremities are intact. No cyanosis or clubbing. Trace edema is noted. Skin is without rash or lesion. Neurologic examination is unable to be evaluated because of patient's currently on propofol. - Labs CBC & Chem 7: 09/24/21 04:15 09/24/21 04:15 Labs: Abnormal Lab Results - Last 24 Hours (Table) 09/24/21 09/24/21 09/24/21 Range/Units 04:15 04:15 05:57 RBC 2.93 L (3.80-5.40) m/uL Hgb 9.5 L (11.4-16.0) gm/dL Hct 29.5 L (34.0-46.0) % MCV 100.6 H (80.0-100.0) fL Neutrophils # 8.0 H (1.3-7.7) k/uL Lymphocytes # 0.7 L (1.0-4.8) k/uL ABG pO2 79 L (83-108) mmHg ABG HCO3 27 H (21-25) mmol/L ABG Total CO2 28 H (19-24) mmol/L Sodium 133 L (137-145) mmol/L Potassium 3.4 L (3.5-5.1) mmol/L BUN 19 H (7-17) mg/dL Calcium 8.2 L (8.4-10.2) mg/dL AST 229 H (14-36) U/L ALT 159 H (4-34) U/L Total Protein 5.4 L (6.3-8.2) g/dL Albumin 2.6 L (3.5-5.0) g/dL Assessment and Plan Assessment: Acute hypoxemic respiratory failure secondary to coronavirus associated pneumonia, status post intubation and mechanical ventilation on 09/11/2021. Status post tracheostomy and PEG tube placement on 09/23/2021. Acute mental status changes, secondary to toxic/metabolic encephalopathy. Methicillin sensitive staph aureus pneumonia, left lower lobe. Dehydration, on admission, resolved. History of seizure disorder. Prior history of pulmonary embolism. Paroxysmal atrial fibrillation. Cardiomyopathy with ejection fraction of 30-35%. Status post pacemaker implantation. History of saccular UROLOGIST PHYSICIAN aneurysm, 4 mm. Hypothyroidism. CAD. History of CVA in 2007. History of recurrent E. coli urinary tract infections. History of psoriasis. History of sacral/coccygeal decubitus ulcer. Plan: Plan dated 09/21/2021. Because of the patient's overall poor status, and the fact that she still is a full code, surgery will be consulted for possible tracheostomy and PEG tube placement. We will continue to follow make recommendations where appropriate. Again, prognosis is very poor. She remains on mechanical ventilator. She remains on appropriate antibiotics. Infectious diseases is following. We will continue to follow make recommendations where appropriate. Plan dated 09/22/2021. The patient is going to hopefully have a tracheostomy and PEG tube placement today. The patient remains on propofol at 40 mcg/kg/m. We did replace the arterial line. The previous arterial line was poorly functional. She had a right radial arterial line placed today by our team. A previous urine culture from September 10 showed Escherichia coli. Sputum from September 17 showed Radha, and presumptive Staphylococcus aureus. The patient remains on an antifungal, and vancomycin as per infectious diseases. Mariam follow and make recommendations where appropriate. Prognosis is certainly guarded. Plan dated 09/23/2021. The patient had methicillin sensitive staph aureus in the sputum and is currently on vancomycin. That can be changed to something other than vancomycin. The patient should have a tracheostomy and PEG tube placement today. It was to be done yesterday. The patient is currently off all sedation. Tube feedings on hold. Oxygenation and ventilation are excellent. We will continue to follow make recommendations where appropriate. Overall prognosis remains very guarded. Most recent brain CT shows old infarcts, with nothing acute and no major change. Plan dated 09/24/2021. The patient underwent tracheostomy and PEG tube placement yesterday, 09/23/2021. She remains on the mechanical ventilator. Labs, x-rays, and medications are all reviewed. The staph. in the sputum, was methicillin sensitive. Hence, vancomycin was discontinued, and she was started on Levaquin. She remains on the antifungal. We will continue to follow make recommendations where appropriate. We'll attempt to wean her off the propofol. Additional recommendations and suggestions are coming. Prognosis is guarded. Time with Patient: Greater than 30
[2021-09-24 11:26] LABS: Glucose,Whole Blood 114 mg/dL (75-99)
[2021-09-24] MEDS: HYDROmorphone 1 MG/ML 1 ML SYRINGE IVP PRN ×3 (11:31→20:28)
--- NOTE | 2021-09-24 14:01 | P.PN ---
Subjective Progress Note Date: 09/24/21 CHIEF COMPLAINT: COVID-19 pneumonia HISTORY OF PRESENT ILLNESS: Patient remains in the ICU intubated and on mechanical ventilation. Patient is status post tracheostomy and PEG tube placement yesterday. Patient will be started on tube feedings this afternoon. They're attempting to wean her off the propofol. Afebrile. WBC 9.1 he will and 9.5 platelets 364 PHYSICAL EXAM: VITAL SIGNS: Reviewed. GENERAL:no acute distress. HEENT: Moist buccal mucosa. Head is atraumatic, normocephalic. Tracheostomy site clean dry and intact ABDOMEN: Soft. Nondistended. PEG tube site clean dry and intact NEUROLOGIC: Intubated and sedated ASSESSMENT: 1. Acute hypoxic respiratory failure secondary to COVID-19 pneumonia requiring mechanical ventilation 2. Severe protein calorie malnutrition PLAN: -Consult dietitian to initiate tube feeds -Continue ICU management -Continue supportive care Physician General Ii Farmworker note has been reviewed by physician. Signing provider agrees with the documented findings, assessment, and plan of care. Objective - Vital Signs Vital signs: Vital Signs Temp 99.1 F 09/24/21 09:00 Pulse 110 H 09/24/21 13:00 Resp 35 H 09/24/21 13:00 BP 125/71 09/24/21 03:00 Pulse Ox 97 09/24/21 13:00 Intake & Output 09/23/21 09/24/21 09/24/21 18:59 06:59 18:59 Intake Total 1413.212 446.788 711.498 Output Total 1370 1215 1075 Balance 43.212 -768.212 -363.502 Weight 59.2 kg Intake: IV 1061 349 488 .9NS 20 140 260 70 Pressure bag 21 39 18 Sodium Chloride 0.45% 1, 550 50 300 000 ml @ 50 mls/hr IV . Q20H [facility] Rx#:[id number] Vancomycin 1,250 mg In 250 Sodium Chloride 0.9% 250 ml @ 125 mls/hr IVPB Q8H ADDIE Rx#:[id number] levETIRAcetam IV 1,500 mg 100 100 In Saline 1 100ml.bag @ 400 mls/hr IVPB Q12HR [facility] Rx#:[id number] Intake, IV Titration 352.212 97.788 187.498 Amount Levofloxacin 500Mg-D5w 100 100 Pmx 500 mg In Dextrose/ Water 1 100ml.bag @ 100 mls/hr IVPB Q24H [facility]IE Rx#: [id number] Vancomycin 1,000 mg In 250 Sodium Chloride 0.9% 250 ml @ 125 mls/hr IVPB Q12H [facility] Rx#:[id number] propofoL 1,000 mg In 2.212 97.788 87.498 Empty Bag 1 bag @ Titrate IV .Q0M ADDIE Rx#: [id number] Tube Feeding 36 Output: Urine 1370 1215 1075 Other: Voiding Method Indwelling Catheter Indwelling Catheter Indwelling Catheter ABP, PAP, CO, CI - Last Documented Arterial Blood Pressure 138/54 - Labs CBC & Chem 7: 09/24/21 04:15 09/24/21 04:15 Labs: Abnormal Lab Results - Last 24 Hours (Table) 09/24/21 09/24/21 09/24/21 Range/Units 04:15 04:15 05:57 RBC 2.93 L (3.80-5.40) m/uL Hgb 9.5 L (11.4-16.0) gm/dL Hct 29.5 L (34.0-46.0) % MCV 100.6 H (80.0-100.0) fL Neutrophils # 8.0 H (1.3-7.7) k/uL Lymphocytes # 0.7 L (1.0-4.8) k/uL ABG pO2 79 L (83-108) mmHg ABG HCO3 27 H (21-25) mmol/L ABG Total CO2 28 H (19-24) mmol/L Sodium 133 L (137-145) mmol/L Potassium 3.4 L (3.5-5.1) mmol/L BUN 19 H (7-17) mg/dL POC Glucose (mg/dL) (75-99) mg/dL Calcium 8.2 L (8.4-10.2) mg/dL AST 229 H (14-36) U/L ALT 159 H (4-34) U/L Total Protein 5.4 L (6.3-8.2) g/dL Albumin 2.6 L (3.5-5.0) g/dL 09/24/21 Range/Units 11:24 RBC (3.80-5.40) m/uL Hgb (11.4-16.0) gm/dL Hct (34.0-46.0) % MCV (80.0-100.0) fL Neutrophils # (1.3-7.7) k/uL Lymphocytes # (1.0-4.8) k/uL ABG pO2 (83-108) mmHg ABG HCO3 (21-25) mmol/L ABG Total CO2 (19-24) mmol/L Sodium (137-145) mmol/L Potassium (3.5-5.1) mmol/L BUN (7-17) mg/dL POC Glucose (mg/dL) 114 H (75-99) mg/dL Calcium (8.4-10.2) mg/dL AST (14-36) U/L ALT (4-34) U/L Total Protein (6.3-8.2) g/dL Albumin (3.5-5.0) g/dL
[2021-09-24] MEDS: ANIDULAFUNGIN 100 MG in SODIUM CHLORIDE 0.9% 100 ML IVPB SCH (16:45)
[2021-09-24 18:47] LABS: Glucose,Whole Blood 115 mg/dL (75-99)
[2021-09-24] MEDS: CLEVIDIPINE BUTYRATE 25 MG in EMPTY BAG 1 BAG IV SCH (18:54)
--- NOTE | 2021-09-24 21:44 | P.PN ---
Subjective Progress Note Date: 09/23/21 Principal diagnosis: Pneumonia pressure ulcer and multiple antibiotic allergies Patient is a 51-year-old female presenting to the hospital on September 10 for mental status changes patient did have a evidence of COVID-19 infection, with respiratory failure requiring intubation also with E. coli UTI and the patient did have multiple antibiotic allergies. The patient is status post tracheostomy and PEG tube placement on 09/23/2021 On today's evaluation that is 09/23/2021, patient remains to be afebrile, the patient is hemodynamically stable not requiring any pressor support, the patient FiO2 is currently stable no significant purulent secretions for the the ET or d iarrhea has been reported by the nursing staff Objective - Vital Signs Vital signs: Vital Signs Temp 98.2 F 09/23/21 12:00 Pulse 81 09/23/21 13:00 Resp 32 H 09/23/21 13:00 BP 125/71 09/23/21 13:00 Pulse Ox 97 09/23/21 13:00 Intake & Output 09/22/21 09/23/21 09/23/21 18:59 06:59 18:59 Intake Total 1484.321 191 1022 Output Total 1926 1100 950 Balance -441.083 -163 178 Weight 60.8 kg 58.2 kg Intake: IV 1473 937 778 .9NS 20 240 260 60 Anidulafungin 100 mg In 130 Sodium Chloride 0.9% 100 ml @ 84 mls/hr IVPB DAILY @1700 ADDIE Rx#:[id number] Potassium Chloride 10 meq 200 In Water For Injection 1 100ml.bag @ 100 mls/hr IVPB Q1HR ADDIE Rx#: [id number] Pressure bag 3 27 18 Sodium Chloride 0.45% 1, 550 650 350 000 ml @ 50 mls/hr IV . Q20H ADDIE Rx#:[id number] Vancomycin 1,250 mg In 250 250 Sodium Chloride 0.9% 250 ml @ 125 mls/hr IVPB Q8H ADD[facility] Rx#:[id number] levETIRAcetam IV 1,500 mg 100 100 In Saline 1 100ml.bag @ 400 mls/hr IVPB Q12HR [facility]IE Rx#:[id number] Intake, IV Titration 11.917 350 Amount Levofloxacin 500Mg-D5w 100 Pmx 500 mg In Dextrose/ Water 1 100ml.bag @ 100 mls/hr IVPB Q24H [facility]IE Rx#: [id number] Vancomycin 1,000 mg In 250 Sodium Chloride 0.9% 250 ml @ 125 mls/hr IVPB Q12H [facility]IE Rx#:[id number] propofoL 1,000 mg In 11.917 Empty Bag 1 bag @ Titrate IV .Q0M ADDIE Rx#: [id number] Tube Feeding 0 0 Output: Urine 1925 1100 950 Stool 1 Other: Voiding Method Indwelling Catheter Indwelling Catheter Indwelling Catheter ABP, PAP, CO, CI - Last Documented Arterial Blood Pressure 123/58 - Exam GENERAL DESCRIPTION: Middle-aged male intubated on the vent, no distress. No tachypnea or accessory muscle of respiration use. LUNGS: Unlabored breathing. Decreased breath sound at the base. No wheeze or crackle. HEART: S1, S2, regular rate and rhythm. No loud murmur ABDOMEN: Soft, no tenderness , guarding or rigidity, no organomegaly EXTREMITIES: No edema of feet. - Labs CBC & Chem 7: 09/24/21 04:15 09/24/21 04:15 Labs: Abnormal Lab Results - Last 24 Hours (Table) 09/23/21 09/23/21 09/23/21 Range/Units 04:25 04:25 05:21 RBC 2.91 L (3.80-5.40) m/uL Hgb 9.3 L (11.4-16.0) gm/dL Hct 29.2 L (34.0-46.0) % MCV 100.6 H (80.0-100.0) fL Neutrophils # 8.7 H (1.3-7.7) k/uL Lymphocytes # 0.9 L (1.0-4.8) k/uL ABG pH 7.48 H (7.35-7.45) ABG pO2 80 L (83-108) mmHg ABG HCO3 29 H (21-25) mmol/L ABG Total CO2 30 H (19-24) mmol/L BUN 23 H (7-17) mg/dL Calcium 8.2 L (8.4-10.2) mg/dL AST 371 H (14-36) U/L ALT 176 H (4-34) U/L Total Protein 5.4 L (6.3-8.2) g/dL Albumin 2.4 L (3.5-5.0) g/dL Microbiology - Last 24 Hours (Table) 09/16/21 21:25 Blood Culture - Final Blood No Growth after 144 hours 09/17/21 23:51 Gram Stain - Final Sputum Sputum Culture - Final Radha glabrata Staphylococcus aureus Assessment and Plan (1) Pneumonia Current Visit: Yes Status: Acute Code(s): J18.9 - PNEUMONIA, UNSPECIFIED ORGANISM SNOMED Code(s): 609244708 (2) Allergy to multiple antibiotics Current Visit: Yes Status: Acute Code(s): Z88.1 - ALLERGY STATUS TO OTHER ANTIBIOTIC AGENTS SNOMED Code(s): 167456242 (3) COVID-19 Current Visit: Yes Status: Acute Code(s): U07.1 - COVID-19 SNOMED Code(s): 380152200 Plan: 1-Patient with acute respiratory failure which is multifactorial in this patient who did have a covid19 pneumonia and a concern for possible secondary bacterial pneumonia patient With a new fever blood and sputum cultures were done and blood culture has been negative sputum showing Radha was more likely colonizer ho wever underlying oropharyngeal candidiasis is not excluded, as well as staphylococcus aureus patient did have a penicillin and cephalosporin ALLERGY, patient is currently covered with vancomycin to continue and the patient fever has resolved Time with Patient: Less than 30
--- NOTE | 2021-09-24 21:47 | P.PN ---
Subjective Progress Note Date: 09/24/21 Principal diagnosis: Pneumonia pressure ulcer and multiple antibiotic allergies Patient is a 51-year-old female presenting to the hospital on September 10 for mental status changes patient did have a evidence of COVID-19 infection, with respiratory failure requiring intubation also with E. coli UTI and the patient did have multiple antibiotic allergies. The patient is status post tracheostomy and PEG tube placement on 09/23/2021 On today's evaluation that is 09/24/2021, patient continues to be afebrile, the patient is hemodynamically stable not requiring any pressor support, the patient FiO2 is currently stable and 40%, no significant purulent secretions for the the ET or diarrhea has been reported by the nursing staff, patient did have a breakdown of the pressure ulcer to the back but no drainage Objective - Vital Signs Vital signs: Vital Signs Temp 98.2 F 09/24/21 20:00 Pulse 95 09/24/21 21:00 Resp 32 H 09/24/21 21:00 BP 125/71 09/24/21 19:00 Pulse Ox 95 09/24/21 21:00 Intake & Output 09/24/21 09/24/21 09/25/21 06:59 18:59 06:59 Intake Total 083.011 8786.498 218 Output Total 1215 1700 235 Balance -768.212 -381.502 -17 Weight 59.2 kg Intake: IV 349 879 126 .9NS 20 260 140 20 Pressure bag 39 39 6 Sodium Chloride 0.45% 1, 50 600 100 000 ml @ 50 mls/hr IV . Q20H ADDIE Rx#:[id number] levETIRAcetam IV 1,500 mg 100 In Saline 1 100ml.bag @ 400 mls/hr IVPB Q12HR ADDIE Rx#:[id number] Intake, IV Titration 97.788 187.498 Amount Levofloxacin 500Mg-D5w 100 Pmx 500 mg In Dextrose/ Water 1 100ml.bag @ 100 mls/hr IVPB Q24H ADDIE Rx#: [id number] propofoL 1,000 mg In 97.788 87.498 Empty Bag 1 bag @ Titrate IV .Q0M ADDIE Rx#: [id number] Tube Feeding 252 92 Output: Urine 1215 1700 235 Other: Voiding Method Indwelling Catheter Indwelling Catheter Indwelling Catheter ABP, PAP, CO, CI - Last Documented Arterial Blood Pressure 137/53 - Exam GENERAL DESCRIPTION: Middle-aged male intubated on the vent, no distress. No tachypnea or accessory muscle of respiration use. LUNGS: Unlabored breathing. Decreased breath sound at the base. No wheeze or crackle. HEART: S1, S2, regular rate and rhythm. No loud murmur ABDOMEN: Soft, no tenderness , guarding or rigidity, no organomegaly EXTREMITIES: No edema of feet. Patient did have unstageable pressure ulcer to the sacral area and upper back with black esher no surrounding redness - Labs CBC & Chem 7: 09/24/21 04:15 09/24/21 04:15 Labs: Abnormal Lab Results - Last 24 Hours (Table) 09/24/21 09/24/21 09/24/21 Range/Units 04:15 04:15 05:57 RBC 2.93 L (3.80-5.40) m/uL Hgb 9.5 L (11.4-16.0) gm/dL Hct 29.5 L (34.0-46.0) % MCV 100.6 H (80.0-100.0) fL Neutrophils # 8.0 H (1.3-7.7) k/uL Lymphocytes # 0.7 L (1.0-4.8) k/uL ABG pO2 79 L (83-108) mmHg ABG HCO3 27 H (21-25) mmol/L ABG Total CO2 28 H (19-24) mmol/L Sodium 133 L (137-145) mmol/L Potassium 3.4 L (3.5-5.1) mmol/L BUN 19 H (7-17) mg/dL POC Glucose (mg/dL) (75-99) mg/dL Calcium 8.2 L (8.4-10.2) mg/dL AST 229 H (14-36) U/L ALT 159 H (4-34) U/L Total Protein 5.4 L (6.3-8.2) g/dL Albumin 2.6 L (3.5-5.0) g/dL 09/24/21 09/24/21 Range/Units 11:24 18:45 RBC (3.80-5.40) m/uL Hgb (11.4-16.0) gm/dL Hct (34.0-46.0) % MCV (80.0-100.0) fL Neutrophils # (1.3-7.7) k/uL Lymphocytes # (1.0-4.8) k/uL ABG pO2 (83-108) mmHg ABG HCO3 (21-25) mmol/L ABG Total CO2 (19-24) mmol/L Sodium (137-145) mmol/L Potassium (3.5-5.1) mmol/L BUN (7-17) mg/dL POC Glucose (mg/dL) 114 H 115 H (75-99) mg/dL Calcium (8.4-10.2) mg/dL AST (14-36) U/L ALT (4-34) U/L Total Protein (6.3-8.2) g/dL Albumin (3.5-5.0) g/dL Assessment and Plan (1) Pneumonia Current Visit: Yes Status: Acute Code(s): J18.9 - PNEUMONIA, UNSPECIFIED ORGANISM SNOMED Code(s): 828509479 (2) Allergy to multiple antibiotics Current Visit: Yes Status: Acute Code(s): Z88.1 - ALLERGY STATUS TO OTHER ANTIBIOTIC AGENTS SNOMED Code(s): 790714558 (3) COVID-19 Current Visit: Yes Status: Acute Code(s): U07.1 - COVID-19 SNOMED Code(s): 729652114 Plan: 1-Patient with acute respiratory failure which is multifactorial in this patient who did have a covid19 pneumonia and a concern for possible secondary bacterial pneumonia patient With a new fever blood and sputum cultures were done and blood culture has been negative sputum showing Radha was more likely colonizer however underlying oropharyngeal candidiasis is not excluded, as well as staphylococcus aureus patient did have a penicillin and cephalosporin ALLERGY, patient is currently covered with vancomycin and Eraxis to continue as the patient fever has resolved and white count has normalized 2-patient with unstageable sacral pressure ulcer as well as unstageable pressure ulcer to the upper back area, may benefit from surgical debridement or local wound care with the medahoney followed by moist dressing to keep the area off the pressure
--- NOTE | 2021-09-24 22:47 | P.PN ---
Subjective Progress Note Date: 09/24/21 Patient was seen for a follow-up. Patient had undergone tracheostomy and PEG placement yesterday. Patient is off propofol since around 11 AM. Patient was given Dilaudid 1 mg IV because of being slightly uncomfortable. Patient is still obtunded. Patient is not showing any purposeful movement. No seizures have been reported by the staff. No twitching noticed. Chest x-ray from this morning showed COPD with improvement in previous left effusion. Mild patchy retrocardiac atelectasis/infiltrate remains. Objective - Vital Signs Vital signs: Vital Signs Temp 98.2 F 09/24/21 20:00 Pulse 100 09/24/21 22:00 Resp 32 H 09/24/21 22:00 BP 125/71 09/24/21 19:00 Pulse Ox 95 09/24/21 22:00 Intake & Output 09/24/21 09/24/21 09/25/21 06:59 18:59 06:59 Intake Total 500.016 5531.498 281 Output Total 1215 1700 295 Balance -768.212 -381.502 -14 Weight 59.2 kg Intake: IV 349 879 189 .9NS 20 260 140 30 Pressure bag 39 39 9 Sodium Chloride 0.45% 1, 50 600 150 000 ml @ 50 mls/hr IV . Q20H ADDIE Rx#:[id number] levETIRAcetam IV 1,500 mg 100 In Saline 1 100ml.bag @ 400 mls/hr IVPB Q12HR ADDIE Rx#:[id number] Intake, IV Titration 97.788 187.498 Amount Levofloxacin 500Mg-D5w 100 Pmx 500 mg In Dextrose/ Water 1 100ml.bag @ 100 mls/hr IVPB Q24H ADDIE Rx#: [id number] propofoL 1,000 mg In 97.788 87.498 Empty Bag 1 bag @ Titrate IV .Q0M ADDIE Rx#: [id number] Tube Feeding 252 92 Output: Urine 1215 1700 295 Other: Voiding Method Indwelling Catheter Indwelling Catheter Indwelling Catheter ABP, PAP, CO, CI - Last Documented Arterial Blood Pressure 128/50 - Exam Patient is obtunded. Patient does not respond to calling her name. Patient has tracheostomy in place. Patient on a ventilator. Her pupils are round and reacting. Oculocephalics present. Corneals present. Face appears symmetric. Rest of the examination could not be performed because of mental status. Patient has history of left hemiparesis from previous stroke. - Labs CBC & Chem 7: 09/25/21 04:00 09/25/21 04:00 Labs: Abnormal Lab Results - Last 24 Hours (Table) 09/24/21 09/24/21 09/24/21 Range/Units 04:15 04:15 05:57 RBC 2.93 L (3.80-5.40) m/uL Hgb 9.5 L (11.4-16.0) gm/dL Hct 29.5 L (34.0-46.0) % MCV 100.6 H (80.0-100.0) fL Neutrophils # 8.0 H (1.3-7.7) k/uL Lymphocytes # 0.7 L (1.0-4.8) k/uL ABG pO2 79 L (83-108) mmHg ABG HCO3 27 H (21-25) mmol/L ABG Total CO2 28 H (19-24) mmol/L Sodium 133 L (137-145) mmol/L Potassium 3.4 L (3.5-5.1) mmol/L BUN 19 H (7-17) mg/dL POC Glucose (mg/dL) (75-99) mg/dL Calcium 8.2 L (8.4-10.2) mg/dL AST 229 H (14-36) U/L ALT 159 H (4-34) U/L Total Protein 5.4 L (6.3-8.2) g/dL Albumin 2.6 L (3.5-5.0) g/dL 09/24/21 09/24/21 Range/Units 11:24 18:45 RBC (3.80-5.40) m/uL Hgb (11.4-16.0) gm/dL Hct (34.0-46.0) % MCV (80.0-100.0) fL Neutrophils # (1.3-7.7) k/uL Lymphocytes # (1.0-4.8) k/uL ABG pO2 (83-108) mmHg ABG HCO3 (21-25) mmol/L ABG Total CO2 (19-24) mmol/L Sodium (137-145) mmol/L Potassium (3.5-5.1) mmol/L BUN (7-17) mg/dL POC Glucose (mg/dL) 114 H 115 H (75-99) mg/dL Calcium (8.4-10.2) mg/dL AST (14-36) U/L ALT (4-34) U/L Total Protein (6.3-8.2) g/dL Albumin (3.5-5.0) g/dL Assessment and Plan Assessment: * Altered mental status, likely due to toxic metabolic encephalopathy. Causes multifactorial as mentioned below. * Breakthrough seizure, likely due to multiple metabolic derangements. Patient had seizure disorder for long time, seizures in remission since 2009. * Acute Covid-19 infection with pneumonia. * Recent acute UTI with E. coli. * Severe hypernatremia, resolved * History of Atrial Fibrillation with RVR * Dehydration * Elevated cardiac enzymes * Acute kidney injury, likely due to dehydration/prerenal, now resolved. * Elevated liver enzymes, still elevated. 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 * History of pacemaker. Plan: * Patient continues to be significantly encephalopathic. Ammonia is normal. * Patient's blood test shows Tegretol level <3.0, Keppra 79.2 and Neurontin level <1.0. Elevated Keppra level was because of acute renal failure on presentation, which now has resolved. * Continue Tegretol 200 mg 3 times a day and Keppra 1500 mg twice a day * EEG was performed, which revealed background slowing of at least moderate degree. This is suggestive of generalized cerebral dysfunction as can be seen with toxic metabolic encephalopathy or due to diffuse structural brain abnormality or postictal effect. No epileptiform activity was seen. * Resume anticoagulation with Eliquis as early as possible from neurology point to prevent recurrent strokes from atrial fibrillation, unless any obvious contraindications. Cardiology also on board. Defer anticoagulation to IM, critical care and cardiology * Other medical management as per IM, critical care. * Cardiology has been consulted for elevated cardiac enzymes. * Patient currently on Levaquin. ID following. * Please call neurology if any concerns. Discussed with patient's nurse in detail.
[2021-09-24 23:19] LABS: Glucose,Whole Blood 112 mg/dL (75-99)
--- NOTE | 2021-09-24 23:20 | P.PN ---
Subjective Progress Note Date: 09/24/21 This is a pleasant 51 years old female with past medical history of Coronary Artery Disease, Heart Failure, CVA/TIA, Pulmonary Embolus (PE), Seizure Disorder, Last seizure 2009, CVA 2007 with L sided weakness arm and leg and has L foot drop, TIA 2018, cardiomyopathy, R PE and pneumothorax/pneumonia following leg fracture in 1994, gestational diabetes with all pregnancies , bilateral glaucoma with surgery, psoriasis in the past, UTIs. She is a status post Pacemaker, history of Bilateral eye surgery for glaucoma, Anxiety, Depression, Current every day smoker Patient presents because of altered mental status. Information was limited from the patient. It was obtained from the chart and medical staff. Also as per family patient was able to go to the bathroom, was more lethargic and tired over the last day. While in the emergency room focal mild seizure is noticed On admission patient had and fever of 101. She is tachypneic at 26-40, tachycardic 110-140, also she is hypoxic saturating 72% on room air Labs showing WBC of 10.5, hemoglobin of 16.3, platelet count of 197. INR 1.7. Sodium 164, creatinine 1.7, lactic acid elevated 4.6. Liver enzymes elevated with AST 202 and ALT 81. Bilirubin is normal at 1.3. Urine analysis is highly suspicious of infection Urine drug screen is negative Cash versus positive Chest x-ray showing left perihilar and left lower lobe area of infiltrate and small effusion correlates for pneumonia CT of the brain without contrast showing no intracranial hemorrhage, evidence of remote ischemic change. However there is vague low attenuation near the left thalamus and left cerebral peduncle. Acute ischemia in the differential diagnosis. Recommend stat MRI of brain with MRSA [place] as clinically warranted. In the emergency room patient was started on aztreonam and IV vancomycin, Keppra and heparin drip 09/11/2021 Patient today was still in the ICU, she was very weak and obtunded, she will wake up to certain stabilized and moans, she does not follow commands she cannot, gait she moved both extremities symmetrically. R on she had collapse of her left lung cancer and she has to be intubated and repeat chest x-ray showing better. A of the left lung. She is tachypneic with a breathing rate 22, no more fever since yesterday. Her sodium improved down to 144 and she was started on normal saline, creatinine 1.1, Ejection fraction showed 30-35% which is slice worsened from 06/2021 where it was 35-40% She remains on dexamethasone, IV vancomycin and clindamycin, heparin drip, Keppra and normal saline at 75 mL/h 09/12/2021 Patient with respiratory failures and she was intubated and placed on mechanical ventilation with pulmonary/critical care team following her mostly. There is no more seizure-like activity noticed. She still tachypneic with a breathing rate of 32 blood pressure 100/70, she is needing FiO2 of 80% and PEEP of 20. She has no more fevers since admission. Urine culture is growing gram-negative bacilli. Sodium is 146, WBCs is increased at 16.5 K. PH showing acidosis with 7.1 and elevated pCO2 at 83. Chest x-ray showing left sided opacities with near full. A of the left lung. Patient kept on antibiotics in the form of clindamycin and Levaquin and fluconazole. Also she remains on dexamethasone, and so a heparin to Lovenox. Also continued on seizure medication 1500 mg twice a day and IV fluids per pulmonary team. Neurology team on the case 09/13/2021 Patient remains intubated and sedated with pulmonary/critical care team following her closely. Her PEEP is lower today to 18. She remains on FiO2 of 50%. She is tachypneic at 32 about blood pressure is controlled. Her inflammatory markers are increased to LDH of 1009 and CRP of 25.1. Bicarb is elevated at 31 WBC is 17.7, sodium improved to 142. Creatinine improved to 0.6. Chest x-ray showed improving left lung infiltrate. PH is improved slightly 7.2 with pCO2 is slightly better at 79. Urine culture is growing E. coli which is sensitive to the antibiotics. Currently patient is covered with clindamycin, Levaquin and fluconazole. Also she is on dexamethasone 6 mg, Keppra 1500 mg and half-normal saline at 50 mL per hour Anticoagulation switch from heparin drip and to Lovenox 09/14/2021 Patient still intubated and sedated on mechanical ventilation with pulmonary/critical care team following her closely and just her vent setting. Today her FiO2 of 55%, and she is tachypneic at 33 breath per minute. Labs showing stable findings with sodium 141, creatinine 0.8, liver enzymes slightly elevated, LDH slightly down at 797 and CRP 2-3.2. Same leukocytosis at 14.7. Her pH is 7.2 and carbon dioxide is 82. D-dimer mildly elevated at 0.9, just x-ray showing bilateral infiltrate with no significant change from prior. She remains on the same antibiotic of clindamycin, Levaquin, dexamethasone, Keppra 1500 mg and half normal saline at 50 mL/h 09/15/2021 Patient in the ICU intubated and sedated, with pulmonary/critical care team following closely. FiO2 still 50%, hemodynamically showing both staple blood pressure 101/40, patient is tachypneic more than 30 per minutes. PEEP is lower. wbc of 11.3, hemoglobin 9.4, sodium 140, creatinine 0.8. chest x-ray: mild worsening infiltrate in the left lobe. patient continued with the same treatment of clindamycin, levaquin, dexamethasone, keppra and she received 1 l of normal saline today. 09/16/2021 Patient is seen and evaluated and follow-up continues to be closely monitored in the ICU. 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 Patient continues on mechanical vent with an FiO2 of 50% and PEEP is 10. Weaning is being continued and PEEP is being titrated down to 8. Patient continues with sedation holidays and very minimal propofol and patient is now off Nimbex and very minimal stimulus noted. Patient response to painful stimulus minimally. Plan is for possible CT of the brain repeat this afternoon. Patient also being closely monitored for continued seizures of which she does have a past medical history of. Patient is also Covid positive and infectious disease is following and patient is maintained on clindamycin along with Levaquin. Chest x-ray today shows correlate for left lower lobe pneumonia versus atelectasis with possible associated effusion. 09/17/2021 Patient is seen in follow-up this morning closely monitored in the ICU. Neurology also following and patient is maintained on IV Keppra. Patient also continues on IV antibiotics in the form of aztreonam and clindamycin with infectious disease following. Patient urine culture showing E. coli. Chest x- ray today shows chronic emphysematous changes with left basilar acute infiltrate and/or atelectasis and likely small left pleural effusion all redemonstrated with no significant change from previous day. Neurology following And okay to resume anticoagulant as there is no evidence of new intracranial process or hemorrhage. Patient is off sedation and continues to be unresponsive. 09/18/2021 Patient is evaluated again this morning and continues to be in the ICU on mechanical vent and being closely monitored. FiO2 is at 45% and PEEP is 8. Patient continues to be off sedation with no response for over 24 hours. Neurology following as well and have discussed overall prognosis with family and family discussing with other family members about CODE STATUS and treatment plan moving forward. Infectious disease also following and patient is maintained on IV Levaquin along with clindamycin and aztreonam and will continue. Urine cultures finalized showing E. coli and sputum culture preliminary is pending at this time. 09/19/2020 Patient evaluated today in the ICU on mechanical ventilation. Fi02 at 45% with a PEEP of 8. Propofol infusing, Nimbex and Levophed are currently on hold. Pr ecedex discontinued. There has been no response, and mental status is not improving. Still no response to verbal stimuli. Patient is being followed closely by neurology for this and is on IV keppra and tegretol. EEG consistant with toxic metabolic encepholapthy. Repeat chest xray today shows similar opacities given patient rotation. Stable support tubes. Mild pulmonary vascular congestion correlate with serum BNP. Blood cultures negative, pending finalized, sputum negative so far. Labs reviewed today: WBC 9.2, hgb 10.3, sodium 138, potassium 3.8, BUN 33, Cr 0.76, glucose in the 110's, calcium 7.9, AST 250, ALT 78, Albumin 2.3. Vitals reviewed: Temp 97.4, HR 126, RR 44, Blood pressure 113/80, 96% oxygen saturation on mechanical ventilation. 09/20/2021 Patient evaluated in ICU on mechanical ventilation with an Fi02 of 45%, PEEP of 12. Chest xray today shows left lower lobe atelectasis versus pneumonia with similar findings as previous. BNP yesterday 12,500, however xray reviewed and d oes not appear to be showing heart failure. She is in negative fluid balance. Status was addressed with family by neurology who is awaiting a phone call back. White count 12.8, RBC 3.5, sodium 137 potassium 3.8, chloride 101, CO2 33, BUN 35, creatinine 0.68, blood sugars in the 120s, AST 424, ALT 115, alk phos 63. Running temps today 100.8, heart rate 123, respiratory rate 36, blood pressure 95/65, oxygen saturation of 93-94%. Blood pressures are on the softer side 88/55. Current infusions include propofol which has been resumed as patient has not shown any signs of neurological improvement while on a propofol break. 09/21/2021 Patient is seen in follow up today and continues to be on mechanical vent with an FI02 of 45% with a peep of 8 and multiple medical consultations following. Ch est xray similar from previous with copd and continued focal basilar left lower lobe retrocardiac consolidation or atelectasis. Patient is on propofol and general surgery has been consulted for peg and trach placement. Plan for surgery is tomorrow. 09/22/2021 Patient is seen and evaluated in follow-up this morning continues on mechanical ventilation with a PEEP of 8 and FiO2 is 45%. General surgery following an plan is for PEG and trach placement today due to prolonged mechanical ventilation and no improvements or weaning from the vent. Patient continues on tube feeding along with Lovenox which is currently on hold for the surgical procedure. Patient's chest x-ray today shows diffuse bilateral infiltrates that are stable with no pneumothorax or pleural effusion noted. Patient also had gallbladder ultrasound secondary to elevated liver functions and shows hepatomegaly otherwise unremarkable. Patient is continued on antifungal's along with vancomycin and infectious disease following closely. Sputum cultures preliminary showing Radha glabrata and Staphylococcus aureus and most recent blood cultures have been negative. 09/23/2021 Patient is seen in follow-up this morning and patient was unable to receive PEG and trach with general surgery following yesterday and plan is for today. Patient continues on mechanical vent and FiO2 is 45% with a PEEP of 8. Lovenox and tube feeding currently on hold. Chest xray reviewed and no acute changes from yesterday. Continues to be unresponsive. Prognosis remains poor. 09/24/2021 Patient is seen this morning status post PEG and trach placement and is resuming tube feedings with general surgery following. Patient continues on mechanical vent with an FiO2 of 40% and PEEP is 8. Per nursing staff working on weaning sedation and assessing neuro status. Continues with being obtunded and no purposeful movements noted. Chest xray shows COPD with improvement in previous left pleural effusion with mild patchy infiltrates/retrocardiac atelectasis noted. Review of systems: Unable to obtain as patient continues to be on mechanical ventilation and sedated Labs: WBC is 9.1, hemoglobin is 9.5, platelets are 364, sodium 133, potassium 3.4, BUN 19, creatinine 0.53, calcium 8.2, AST, ALT continue to be elevated, ammonia less than 9 Active Medications Acetaminophen (Acetaminophen Tab 325 Mg Tab) 650 mg PO Q6HR PRN PRN Reason: Fever and/ or Pain Last Admin: 09/21/21 23:30 Dose: 650 mg Documented by: Amiodarone HCl (Amiodarone 200 Mg Tab) 200 mg PO DAILY [facility] Last Admin: 09/24/21 08:58 Dose: 200 mg Documented by: Artificial Tears (Artificial Tears-Hypromellose Drops 15 Ml Btl) 1 drops BOTH EYES QID PRN PRN Reason: Dry Eye(s) Last Admin: 09/16/21 08:58 Dose: 1 drops Documented by: Carbamazepine (Carbamazepine 200 Mg Tab) 200 mg PO TID [facility] Last Admin: 09/24/21 08:59 Dose: 200 mg Documented by: Chlorhexidine Gluconate (Chlorhexidine Gluconate 15 Ml Cup) 15 ml MUCOUS MEM BI D [facility] Last Admin: 09/24/21 08:58 Dose: 15 ml Documented by: Cholecalciferol (Cholecalciferol 125 Mcg (5000 Iu) Tablet) 125 mcg PO DAILY [facility] Last Admin: 09/24/21 08:58 Dose: 125 mcg Documented by: Dexamethasone Sodium Phosphate (Dexamethasone Sod Phosphate 10 Mg/Ml 1 Ml Vial) 6 mg IVP DAILY [facility] Last Admin: 09/24/21 08:58 Dose: 6 mg Documented by: Enoxaparin Sodium (Enoxaparin 40 Mg/0.4 Ml Syringe) 40 mg SQ DAILY [facility] Last Admin: 09/24/21 08:59 Dose: 40 mg Documented by: Hydromorphone HCl (Hydromorphone 1 Mg/Ml 1 Ml Syringe) 1 mg IVP Q2H PRN PRN Reason: Pain Last Admin: 09/24/21 11:31 Dose: 1 mg Documented by: Levetiracetam 1,500 mg/ IV (Solution) 100 mls @ 400 mls/hr IVPB Q12HR [facility] Last Admin: 09/24/21 09:05 Dose: 400 mls/hr Documented by: Sodium Chloride (Saline 0.45%) 1,000 mls @ 50 mls/hr IV .Q20H [facility] Last Admin: 09/24/21 05:54 Dose: Not Given Documented by: Anidulafungin 100 mg/ Sodium (Chloride) 130 mls @ 84 mls/hr IVPB DAILY@1700 [facility] Last Admin: 09/23/21 15:46 Dose: 84 mls/hr Documented by: Propofol 1,000 mg/ IV Solution 100 mls @ 0 mls/hr IV .Q0M [facility]; Protocol Last Titration: 09/24/21 11:28 Dose: 0 mcg/kg/min, 0 mls/hr Documented by: Levofloxacin 500 mg/ IV (Solution) 100 mls @ 100 mls/hr IVPB Q24H [facility] Last Admin: 09/24/21 10:25 Dose: 100 mls/hr Documented by: Insulin Aspart (Insulin Aspart (Novolog) 100 Unit/Ml Vial) 0 unit SQ Q6H [facility]; Protocol Last Admin: 09/24/21 11:28 Dose: Not Given Documented by: Miscellaneous Information (Potassium Replacement Protocol 1 Each Misc) 1 each MISCELLANE DAILY PRN; Protocol PRN Reason: Per Protocol Naloxone HCl (Naloxone 0.4 Mg/Ml 1 Ml Vial) 0.2 mg IV Q2M PRN PRN Reason: Opioid Reversal Pantoprazole Sodium (Pantoprazole 40 Mg/10 Ml Vial) 40 mg IV DAILY [facility] Last Admin: 09/24/21 08:58 Dose: 40 mg Documented by: Quetiapine Fumarate (Quetiapine 25 Mg Tab) 25 mg PO BID [facility] Last Admin: 09/24/21 09:00 Dose: 25 mg Documented by: Physical exam: GENERAL: The patient is intubated and sedated, FiO2 is 40% and PEEP is 8 HEENT: Pupils are round and equally reacting to light. EOMI. No scleral icterus. No conjunctival pallor. Normocephalic, atraumatic. No pharyngeal erythema. No thyromegaly. CARDIOVASCULAR: S1 and S2 present. No murmurs, rubs, or gallops. PULMONARY: Chest is clear to auscultation, no wheezing or crackles. ABDOMEN: Soft, nontender, nondistended, normoactive bowel sounds. No palpable organomegaly. MUSCULOSKELETAL: No joint swelling or deformity. EXTREMITIES: No cyanosis, clubbing, or pedal edema. NEUROLOGICAL: unresponsive, remains sedated SKIN: No rashes. no petechiae. Assessment: Altered mental status could be metabolic/toxic encephalopathy, ruled out other intracranial lesions, and possibly secondary to seizure status post peg tube and tracheostomy placement Left lower lobe pneumonia, rule out aspiration pneumonia Acute urinary tract infection, present on admission with culture showing E. coli Sepsis secondary to UTI and pneumonia Breakthrough seizure Bilateral interstitial Covid 19 pneumonia Acute hypoxic respiratory failure secondary to COVID-19 pneumonia requiring mechanical ventilation Increased inflammatory markers elevated troponin, most likely type II ischemia. Rule out primary cardiac causes Cardiomyopathy with most recent EF of 30-35% Hypernatremia, improved Acute kidney injury, improved Mild elevated liver enzymes History of coronary artery disease History of pulmonary embolism History of seizure disorder, last seizure was in 2009 as per documents History 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 left foot drop History of glaucoma status post surgery Status post permanent pacemaker Nicotine dependence GI prophylaxis DVT prophylaxis Full code Plan: This is a pleasant 51 years old female who presented with altered mental status, pneumonia, UTI, possible stroke although most likely old infarcts noted on CT, seizure and positive for covid pneumonia patient was intubated and continues on mechanical ventilation with a FiO2 of 45% and PEEP is 8. General surgery fo llowing and performed PEG and trach placement yesterday and awaiting surgical clearance to resume feeds and resuming some time today. Tube feedings and lovenox on hold. Continue with Keppra and neurology following and patient has been off sedation and continues to be unresponsive. CT of the brain shows old right hemisphere infarct without change old left posterior frontal lobe cortical infarct without change and no acute abnormality. Patient is currently back on Propofol pulmonary and infectious disease following, continue the broad-spectrum antibiotics in the form of levaquin along with antifungals Continue with dexamethasone, vitamin and zinc supplements along with Lovenox, Lovenox and tube feedings currently on hold as patient is scheduled for PEG and trach placement today. Cardiology team evaluated the patient for elevated troponin, patient does not have A. fib per instructor weaving Family aware of overall poor and guarded prognosis and would like to continue with full code status and have elected to proceed with peg and trach placement. status post peg and trach. Overall Prognosis remains poor and extremely guarded Objective - Vital Signs Vital signs: Vital Signs Temp 97.8 F 09/24/21 04:00 Pulse 108 H 09/24/21 07:00 Resp 29 H 09/24/21 07:00 BP 125/71 09/24/21 03:00 Pulse Ox 95 09/24/21 07:00 Intake & Output 09/23/21 09/24/21 09/24/21 18:59 06:59 18:59 Intake Total 1413.212 446.788 Output Total 1370 1215 Balance 43.212 -768.212 Weight 59.2 kg Intake: IV 1061 349 .9NS 20 140 260 Pressure bag 21 39 Sodium Chloride 0.45% 1, 550 50 000 ml @ 50 mls/hr IV . Q20H [facility] Rx#:[id number] Vancomycin 1,250 mg In 250 Sodium Chloride 0.9% 250 ml @ 125 mls/hr IVPB Q8H [facility] Rx#:[id number] levETIRAcetam IV 1,500 mg 100 In Saline 1 100ml.bag @ 400 mls/hr IVPB Q12HR [facility] Rx#:[id number] Intake, IV Titration 352.212 97.788 Amount Levofloxacin 500Mg-D5w 100 Pmx 500 mg In Dextrose/ Water 1 100ml.bag @ 100 mls/hr IVPB Q24H [facility] Rx#: [id number] Vancomycin 1,000 mg In 250 Sodium Chloride 0.9% 250 ml @ 125 mls/hr IVPB Q12H [facility] Rx#:[id number] propofoL 1,000 mg In 2.212 97.788 Empty Bag 1 bag @ Titrate IV .Q0M [facility] Rx#: [id number] Output: Urine 1370 1215 Other: Voiding Method Indwelling Catheter Indwelling Catheter ABP, PAP, CO, CI - Last Documented Arterial Blood Pressure 132/52 - Labs CBC & Chem 7: 09/24/21 04:15 09/24/21 04:15 Labs: Abnormal Lab Results - Last 24 Hours (Table) 09/24/21 09/24/21 09/24/21 Range/Units 04:15 04:15 05:57 RBC 2.93 L (3.80-5.40) m/uL Hgb 9.5 L (11.4-16.0) gm/dL Hct 29.5 L (34.0-46.0) % MCV 100.6 H (80.0-100.0) fL Neutrophils # 8.0 H (1.3-7.7) k/uL Lymphocytes # 0.7 L (1.0-4.8) k/uL ABG pO2 79 L (83-108) mmHg ABG HCO3 27 H (21-25) mmol/L ABG Total CO2 28 H (19-24) mmol/L Sodium 133 L (137-145) mmol/L Potassium 3.4 L (3.5-5.1) mmol/L BUN 19 H (7-17) mg/dL Calcium 8.2 L (8.4-10.2) mg/dL AST 229 H (14-36) U/L ALT 159 H (4-34) U/L Total Protein 5.4 L (6.3-8.2) g/dL Albumin 2.6 L (3.5-5.0) g/dL
[2021-09-25] MEDS: HYDROmorphone 1 MG/ML 1 ML SYRINGE IVP PRN ×3 (00:50→16:01)
[2021-09-25 02:01] LABS: African American GFR (CKD) >90 (>60 ml/min/1.73 sqM); Anion Gap 4 mmol/L; Blood Urea Nitrogen 19 mg/dL (7-17); Carbon Dioxide 31 mmol/L (22-30); Chloride 100 mmol/L (98-107); Glucose 124 mg/dL (74-99); Non-African American GFR(CKD) >90 (>60 ml/min/1.73 sqM); Potassium 3.3 mmol/L (3.5-5.1); Sodium 135 mmol/L (137-145)
[2021-09-25] MEDS ORDERED: Potassium Replacement Protocol 1 EACH MISC MISCELLANE PRN ×2 (02:20→05:48)
[2021-09-25] MEDS: INSULIN ASPART (NovoLOG) 100 UNIT/ML VIAL SQ SCH ×4 (02:34→18:14)
[2021-09-25] MEDS: POTASSIUM BICARBONATE/CIT AC 20 MEQ TABLET.EFF NG-TUBE SCH ×2 (02:35→06:42)
[2021-09-25 05:16] LABS: Basophils % (A) 0 %; Eosinophils % (A) 0 %; HCT 27.8 % (34.0-46.0); Lymphocytes # (A) 0.6 k/uL (1.0-4.8); Lymphocytes % (A) 6 %; MCH 32.5 pg (25.0-35.0); MCHC 32.4 g/dL (31.0-37.0); MCV 100.4 fL (80.0-100.0); Macrocytosis Slight; Mean Platelet Volume 9.1; Monocytes # (A) 0.3 k/uL (0-1.0); Monocytes % (A) 3 %; Neutrophils # (A) 8.9 k/uL (1.3-7.7); Neutrophils % (A) 90 %; Platelet Count 333 k/uL (150-450); RBC 2.77 m/uL (3.80-5.40); RDW 14.5 % (11.5-15.5); WBC 9.9 k/uL (3.8-10.6)
[2021-09-25 05:27] LABS: African American GFR (CKD) >90 (>60 ml/min/1.73 sqM); Anion Gap 4 mmol/L; Blood Urea Nitrogen 18 mg/dL (7-17); Calcium 7.9 mg/dL (8.4-10.2); Carbon Dioxide 31 mmol/L (22-30); Chloride 102 mmol/L (98-107); Glucose 171 mg/dL (74-99); Non-African American GFR(CKD) >90 (>60 ml/min/1.73 sqM); Potassium 3.9 mmol/L (3.5-5.1); Sodium 137 mmol/L (137-145)
[2021-09-25] MEDS ORDERED: POTASSIUM BICARBONATE/CIT AC 20 MEQ TABLET.EFF NG-TUBE SCH (06:00)
[2021-09-25 06:02] LABS: ABG HCO3 35 mmol/L (21-25); ABG Oxygen Saturation 97.2 % (94-97); ABG PCO2 51 mmHg (35-45); ABG PH 7.45 (7.35-7.45); ABG PO2 95 mmHg (83-108); ABG TCO2 37 mmol/L (19-24); Allen Test Performed? Yes
[2021-09-25] MEDS ORDERED: RX INFO: IV CONTRAST WAS GIVEN 1 EACH MISC MISCELLANE PRN (08:28)
[2021-09-25] MEDS: DEXAMETHASONE SOD PHOSPHATE 10 MG/ML 1 ML VIAL IVP SCH (08:54)
[2021-09-25] MEDS: PANTOPRAZOLE 40 MG/10 ML VIAL IV SCH (08:54)
[2021-09-25] MEDS: QUEtiapine 25 MG TAB PO SCH ×2 (08:55→20:42)
[2021-09-25] MEDS: AMIODARONE 200 MG TAB PO SCH (08:55)
[2021-09-25] MEDS: ENOXAPARIN 40 MG/0.4 ML SYRINGE SQ SCH (08:55)
[2021-09-25] MEDS: CHOLECALCIFEROL 125 MCG (5000 IU) TABLET PO SCH (08:55)
[2021-09-25] MEDS: CHLORHEXIDINE GLUCONATE 15 ML CUP MUCOUS MEM SCH ×2 (08:55→20:42)
[2021-09-25] MEDS: levETIRAcetam IV 1,500 MG in SALINE 1 100ML.BAG IVPB SCH ×2 (08:56→20:42)
[2021-09-25] MEDS: carBAMazepine 200 MG TAB PO SCH ×3 (08:56→20:42)
--- NOTE | 2021-09-25 09:06 | XR ---
EXAMINATION TYPE: XR chest 1V portable DATE OF EXAM: 09/25/2021 Comparison: 09/24/2021 Clinical History: 51-year-old female assess lungs Findings: Tracheostomy cannula. Patient is markedly rotated towards the left altering the normal cardiomediasti nal contours. Heart upper limits of normal in size. Hyperinflation. No progressive consolidation of p leural effusion. Unable to exclude retrocardiac opacity partially silhouetting the left hemidiaphragm . Impression: Suboptimal, rotated exam. Unable to exclude some worsening retrocardiac atelectasis or infiltrate
[2021-09-25] MEDS: LEVOFLOXACIN 500MG-D5W PMX 500 MG in DEXTROSE/WATER 1 100ML.BAG IVPB SCH (10:13)
--- NOTE | 2021-09-25 11:32 | P.PN ---
Subjective Progress Note Date: 09/25/21 Principal diagnosis: Respiratory failure. Reevaluated today on 09/18/21, patient remains in the ICU, intubated and mechanically ventilated. Patient is not making any significant neurological improvement. She has been off sedation for few days, yesterday we started the patient only on Precedex, and that's mostly to keep her synchronous with the ventilator. Again her mental status is basically about the same, and she is not showing much improvement. She opens eyes slightly to deep painful stimuli, but no purposeful movement and no responses to verbal stimuli. She is on assist control rate of 32 tidal volume 325 FiO2 was 50% and PEEP was 8 however I cut down her FiO2 to 45%. Patient is receiving enteral feeding, vital AF at 34 mL per hour. ABG today showed a pO2 of 107 pCO2 44 pH of 7.46. Basic metabolic profile is normal WBC count is 7.6 hemoglobin is 9.5. No significant metabolic abnormality to explain her encephalopathy at this point. Patient is still being followed by neurology on the case. Patient is still being treated for coronary virus infection, and UTI on admission secondary to E. coli. 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 No acute process was noted. Patient remains on seizure medications as per neurology including Keppra and Tegretol. EEG showed slowing/moderate degree of slowing suggestive of generalized cerebral dysfunction. This is seen with toxic metabolic encephalopathy. Reevaluated today on 09/19/21, patient remains in the ICU, intubated and mechanically ventilated, she is on assist control rate of 32 tidal volume of 325 FiO2 45% and PEEP of 8. Patient had to be placed on propofol yesterday at 50 mcg/kg/m, she is on IV fluid at 50 mL per hour. ABG showed a pO2 of 78 pCO2 of 47 pH of 7.44. Chest x-ray is basically about, no change. WBC count is 9.2 hemoglobin is 10.3. Electrolytes are normal. Again the patient had to be placed back on propofol because she was getting agitated, restless, and not syn chronous with the ventilator yesterday. Remains on propofol today, and patient is not responding to any stimuli. Hence I'm keeping her on propofol, I believe the patient will eventually require tracheostomy and PEG tube placement unless CODE STATUS is changed to comfort care. Chest x-ray is basically showing no significant abnormalities. She does have mild pulmonary vascular congestion. Reevaluated today on 09/20/21, patient remains in the ICU, intubated and mechanically ventilated. She is on assist control rate of 32 tidal volume 325 FiO2 is 45%, PEEP is at 8. Patient is back on propofol, intermittently has been receiving Dilaudid, patient becomes at times agitated, and asynchronous with the ventilator, early in the week, I was able to hold sedation for a number of days, however the patient remained unresponsive to verbal stimuli, and apparently she had significant toxic metabolic encephalopathy. CT of the brain was nondiagnostic. Patient was seen by neurology on consultation, and still believe that this is a occipital metabolic encephalopathy picture. Patient is on propofol now at 50 mcg/kg/m, not requiring any other sedatives or narcotics. Patient has been feeding/enteral feeding vital AF at 34 mL per hour. ABG today showed a pO2 of 101 pCO2 47 pH of 7.44. Chest x-ray continues to show retrocardiac density likely atelectasis, otherwise no significant findings on the chest x-ray Progress note dated 09/21/2021. This is a 51-year-old female, who was admitted to the hospital on September 10. She came in with mental status changes, sepsis, and hypernatremia. She came to the intensive care unit on September 10, and was intubated for respiratory failure on 09/11/2021. The patient did test positive for coronavirus. She remains on mechanical ventilator. The patient is on the volume assist control mode, rate 32, tidal volume 325, FiO2 45%, and PEEP of 8. Blood gases show pO2 of 91, pCO2 49, and pH is 7.45. The patient's getting half-normal saline at 50 mL an hour, propofol at 50 mcg/kg/m, and vital AF at 34 mL an hour, which is goal. White count 10.2, hemoglobin 9.7, hematocrit 30.4, and platelet count was normal. Sodium 139, potassium 3.5, chlorides 104, CO2 32, anion gap 3, BUN 34, and creatinine 0.65. Microbiologic studies show evidence of Escherichia coli in the urine from September 10, and presumptive staph aureus in the sputum from August 30 0. The chest x-ray shows left lower lobe atelectasis and/or infiltrates. The patient is currently on antifungals, and aztreonam. The infectious disease doctor is currently on the case. Progress note dated 09/22/2021. 51-year-old female who was admitted to the hospital on 09/10/2021. She came in with mental status changes, sepsis, and hypernatremia. She came to the intensive care unit on September 10, and was intubated for respiratory failure on 09/11/2021. She did test positive for coronavirus. She remains on the mechanical ventilator. The plan is for a tracheostomy and PEG tube placement today by one of the surgeons. The patient also had a right radial arterial line placed by our team. Currently, she is on the volume assist control mode, rate 32, tidal volume 325, FiO2 45%, PEEP of 8. Arterial blood gases show pO2 of 88, pCO2 46, and a pH is 7.48. The patient is on propofol at 40 mcg/kg/m, saline at 20 mL an hour, half-normal saline at 50 mL an hour, and vital, at 46 mL an hour, which is goal. Obviously, tube feeds on hold for anticipated surgery today. White count 9.3, hemoglobin 8.8, hematocrit 27.3, and platelet count 269,000. Sodium 139, potassium 3.4, chlorides 104, CO2 33, anion gap 2, BUN 26, and creatinine 0.54. AST 500, ALT 166. An ultrasound the right upper quadrant will be ordered. Chest x-ray shows persistent left lower lobe atelectasis and/or inf iltrate. Progress note dated 09/23/2021. This is a 51-year-old female, again seen in room 254. She's now been in the hospital for 13 days. She was admitted on 09/10/2021. She came in with mental status changes, and sepsis. She came to the intensive care unit on September 10, and was intubated respiratory failure on 09/11/2021. She did test positive for coronavirus. She remains on the mechanical ventilator. The patient was to have a tracheostomy and PEG tube placement performed. It was to be done yesterday but for some reason did not take place. She remains on the volume assist control, rate 32, tidal volume 325, FiO2 45%, and PEEP of 8. Blood gases show pO2 80, pCO2 39, pH is 7.48. The patient's getting saline at 20 mL an hour, half-normal saline at 50 mL an hour, and tube feeds are currently on hold. White count 10, hemoglobin 9.3, hematocrit 29.2, and platelet count 341,000. Sodium 139, potassium 3.6, chlorides 106, CO2 27, anion gap 6, BUN 23, and creatinine 0.59. Albumin is 2.4. Microbiology from September 10, shows a urine that was positive for an E. coli, and a sputum from September 17, it is positive for Staphylococcus aureus. The patient is currently on vancomycin and Eraxis. Progress note dated 09/24/2021. 51-year-old female, again seen in room 254. The patient underwent tracheostomy and PEG tube placement yesterday, on September 23. The patient is now been in the hospital for 14 days. The patient was admitted on 09/10/2021. She did test positive for coronavirus. The patient was intubated on 09/11/2021, for respiratory failure. Currently, she is on volume assist control, rate 32, tidal volume 325, FiO2 40%, and PEEP of 8. Arterial blood gases show pO2 of 79, pCO2 39, pH is 7.45. The patient's getting half-normal saline at 50 mL an hour. She is on propofol at 40 mcg/kg/m. Tube feedings are still on hold. She's getting an antifungal, as well as Levaquin. Labs include a white count 9.1, hemoglobin 9.5, hematocrit 29.5 and platelet count which is normal. Sodium 133, potassium 3.4, chlorides 101, CO2 26, anion gap 6, BUN 19, and creatinine 0.53. AST is 229, and ALTs 159. Microbiologic studies are positive for a urine sample from September 10, for E. coli, and methicillin sensitive staph aureus in the sputum from September 17. Chest x-ray shows patchy bibasilar and bilateral infiltrates. Progress note dated 09/25/2021. 51-year-old female again seen in room 254. She underwent tracheostomy and PEG tube placement on September 23. The patient has been in the hospital now for 15 days. She remains on the ventilator. She is on the volume assist control mode, rate 32, tidal volume 325, FiO2 40%, PEEP of 8. Blood gases show pO2 of 95, pCO2 51, and pH is 7.44. The patient's getting half-normal saline at 50 mL an hour, and currently, propofol is off. She is also on vital 1.2 at 46 mL an hour, which is goal. She remains on Levaquin for a sputum positive for methicillin sensitive staph aureus. Also, the patient is on an antifungal as per infectious diseases. Because of her poor mental status, we will repeat a computed tomography scan of the brain with contrast. Her hoping to be able to get this patient to a long-term acute care facility or specialized nursing facility. White count 9.9, hemoglobin 9, hematocrit 26.8 and platelet count 333,000. Sodium 137, potassium 3.9, chlorides 102, CO2 31, anion gap 4, BUN 18, creatinine 0.53. Chest x-ray shows a tracheostomy tube in the midline. There is diffuse bilateral infiltrates, with worsening in the retrocardiac area. Objective - Vital Signs Vital signs: Vital Signs Temp 98.5 F 09/25/21 09:00 Pulse 104 H 09/25/21 10:00 Resp 34 H 09/25/21 10:00 BP 125/82 09/25/21 09:00 Pulse Ox 94 L 09/25/21 10:00 Intake & Output 09/24/21 09/25/21 09/25/21 18:59 06:59 18:59 Intake Total 4596.208 7458 403 Output Total 1700 975 450 Balance -381.502 333 -47 Weight 59.8 kg 59.8 kg Intake: IV 879 756 189 .9NS 20 140 120 30 Pressure bag 39 36 9 Sodium Chloride 0.45% 1, 600 600 150 000 ml @ 50 mls/hr IV . Q20H ADDIE Rx#:[id number] levETIRAcetam IV 1,500 mg 100 In Saline 1 100ml.bag @ 400 mls/hr IVPB Q12HR ADDIE Rx#:[id number] Intake, IV Titration 187.498 Amount Levofloxacin 500Mg-D5w 100 Pmx 500 mg In Dextrose/ Water 1 100ml.bag @ 100 mls/hr IVPB Q24H ADDIE Rx#: [id number] propofoL 1,000 mg In 87.498 Empty Bag 1 bag @ Titrate IV .Q0M ADDIE Rx#: [id number] Tube Feeding 252 552 184 Other 30 Output: Urine 1700 975 450 Other: Voiding Method Indwelling Catheter Indwelling Catheter ABP, PAP, CO, CI - Last Documented Arterial Blood Pressure 99/66 - Exam No acute distress, currently off propofol, with a midline tracheostomy. HEENT examination is grossly unremarkable. Neck supple. Full range of motion. No adenopathy thyromegaly or neck vein distention. Benign tracheostomy is noted. Cardiovascular examination reveals regular rhythm rate. S1-S2 normal. No S3 or S4. No discernible murmur noted. Heart rate 104 bpm. Heart sounds are distant. Lungs reveal bilateral expiratory rhonchi and wheezes. No crackles. Breath sounds are equal bilaterally. Saturations are 94%. Abdomen soft, without bowel sounds. No masses. PEG tube is noted. Extremities are intact. No cyanosis or clubbing. Trace edema is noted. Skin is without rash or lesion. Neurologic examination reveals a very poorly responsive patient, off of all sedation. - Labs CBC & Chem 7: 09/25/21 04:00 09/25/21 04:00 Labs: Abnormal Lab Results - Last 24 Hours (Table) 09/24/21 09/24/21 09/25/21 Range/Units 18:45 23:17 01:30 RBC (3.80-5.40) m/uL Hgb (11.4-16.0) gm/dL Hct (34.0-46.0) % MCV (80.0-100.0) fL Neutrophils # (1.3-7.7) k/uL Lymphocytes # (1.0-4.8) k/uL ABG pCO2 (35-45) mmHg ABG HCO3 (21-25) mmol/L ABG Total CO2 (19-24) mmol/L ABG O2 Saturation (94-97) % Sodium 135 L (137-145) mmol/L Potassium 3.3 L (3.5-5.1) mmol/L Carbon Dioxide 31 H (22-30) mmol/L BUN 19 H (7-17) mg/dL Creatinine 0.38 L (0.52-1.04) mg/dL Glucose 124 H (74-99) mg/dL POC Glucose (mg/dL) 115 H 112 H (75-99) mg/dL Calcium 8.0 L (8.4-10.2) mg/dL 0109/25/21 09/25/21 Range/Units 04:00 04:00 05:50 RBC 2.77 L (3.80-5.40) m/uL Hgb 9.0 L (11.4-16.0) gm/dL Hct 27.8 L (34.0-46.0) % MCV 100.4 H (80.0-100.0) fL Neutrophils # 8.9 H (1.3-7.7) k/uL Lymphocytes # 0.6 L (1.0-4.8) k/uL ABG pCO2 51 H (35-45) mmHg ABG HCO3 35 H (21-25) mmol/L ABG Total CO2 37 H (19-24) mmol/L ABG O2 Saturation 97.2 H (94-97) % Sodium (137-145) mmol/L Potassium (3.5-5.1) mmol/L Carbon Dioxide 31 H (22-30) mmol/L BUN 18 H (7-17) mg/dL Creatinine (0.52-1.04) mg/dL Glucose 171 H (74-99) mg/dL POC Glucose (mg/dL) (75-99) mg/dL Calcium 7.9 L (8.4-10.2) mg/dL Assessment and Plan Assessment: Acute hypoxemic respiratory failure secondary to coronavirus associated pneumonia, status post intubation and mechanical ventilation on 09/11/2021. Status post tracheostomy and PEG tube placement on 09/23/2021. Acute mental status changes, secondary to toxic/metabolic encephalopathy. Methicillin sensitive staph aureus pneumonia, left lower lobe. Dehydration, on admission, resolved. History of seizure disorder. Prior history of pulmonary embolism. Paroxysmal atrial fibrillation. Cardiomyopathy with ejection fraction of 30-35%. Status post pacemaker implantation. History of saccular HOGSHEAD FILLER aneurysm, 4 mm. Hypothyroidism. CAD. History of CVA in 2007. History of recurrent E. coli urinary tract infections. History of psoriasis. History of sacral/coccygeal decubitus ulcer. Plan: Plan dated 09/21/2021. Because of the patient's overall poor status, and the fact that she still is a full code, surgery will be consulted for possible tracheostomy and PEG tube placement. We will continue to follow make recommendations where appropriate. Again, prognosis is very poor. She remains on mechanical ventilator. She remains on appropriate antibiotics. Infectious diseases is following. We will continue to follow make recommendations where appropriate. Plan dated 09/22/2021. The patient is going to hopefully have a tracheostomy and PEG tube placement today. The patient remains on propofol at 40 mcg/kg/m. We did replace the arterial line. The previous arterial line was poorly functional. She had a right radial arterial line placed today by our team. A previous urine culture from September 10 showed Escherichia coli. Sputum from September 17 showed Radha, and presumptive Staphylococcus aureus. The patient remains on an antifungal, and vancomycin as per infectious diseases. Mariam follow and make recommendations where appropriate. Prognosis is certainly guarded. Plan dated 09/23/2021. The patient had methicillin sensitive staph aureus in the sputum and is cur rently on vancomycin. That can be changed to something other than vancomycin. The patient should have a tracheostomy and PEG tube placement today. It was to be done yesterday. The patient is currently off all sedation. Tube feedings on hold. Oxygenation and ventilation are excellent. We will continue to follow make recommendations where appropriate. Overall prognosis remains very guarded. Most recent brain CT shows old infarcts, with nothing acute and no major change. Plan dated 09/24/2021. The patient underwent tracheostomy and PEG tube placement yesterday, 09/23/2021. She remains on the mechanical ventilator. Labs, x-rays, and medications are all reviewed. The staph. in the sputum, was methicillin sensitive. Hence, vancomycin was discontinued, and she was started on Levaquin. She remains on the antifungal. We will continue to follow make recommendations where appropri ate. We'll attempt to wean her off the propofol. Additional recommendations and suggestions are coming. Prognosis is guarded. Plan dated 09/25/2021. We'll attempt another CAT scan of the brain with contrast, because of the patient's poor mental status. Two prior CT scans did not show anything acute. The patient remains on Levaquin, and Eraxis. The patient remains off of all. We will continue to follow make recommendations where appropriate. Overall prognosis remains guarded. Time with Patient: Greater than 30
[2021-09-25 12:18] LABS: Glucose,Whole Blood 200 mg/dL (75-99)
[2021-09-25 13:55] LABS: Glucose,Whole Blood 151 mg/dL (75-99)
--- NOTE | 2021-09-25 14:06 | CT ---
EXAMINATION TYPE: DATE OF EXAM: 09/25/2021 COMPARISON: CT brain 09/16/2021 HISTORY: unresponsive altered mental status CT DLP: 1099.4 mGycm Automated exposure control for dose reduction was used. CONTRAST: CT scan of the head is performed with IV Contrast, patient injected with 100 mL of Isovue 300. FINDINGS: There is no abnormal enhancing mass or midline shift identified. The ventricles and sulci are stable , there is extensive encephalomalacia as noted on prior exam, ex vacuo phenomenon present in the righ t lateral ventricle greater than the frontal horn of the left lateral ventricle. The globes are inta ct and the visualized sinuses are remarkable for minimal inflammatory change in the sphenoid sinus, e thmoid air cells. There is soft tissue attenuation present within the middle ears bilaterally. IMPRESSION: Findings consistent with running cerebrovascular infarcts bilaterally. Findings may be indicative of otitis media bilaterally. Sinus disease. No acute brain abnormality evident. MRI may be of benefit.
--- NOTE | 2021-09-25 14:19 | P.PN ---
Subjective Progress Note Date: 09/25/21 CHIEF COMPLAINT: COVID-19 pneumonia HISTORY OF PRESENT ILLNESS: Patient remains in the ICU intubated and on mechanical ventilation. Patient is status post tracheostomy and PEG tube placement on 09/23/21. Patient started to feedings yesterday. She is tolerating tube feedings. No residual reported. She is currently off the sedation but not waking up. She went for a computed tomography scan of the brain today. Afebrile. Mild tachycardia WBC 9.9 hemoglobin 9.0 PHYSICAL EXAM: VITAL SIGNS: Reviewed. GENERAL:no acute distress. HEENT: Moist buccal mucosa. Head is atraumatic, normocephalic. Tracheostomy site clean dry and intact ABDOMEN: Soft. Nondistended. PEG tube site clean dry and intact NEUROLOGIC: Intubated and sedated ASSESSMENT: 1. Acute hypoxic respiratory failure secondary to COVID-19 pneumonia requiring mechanical ventilation 2. Severe protein calorie malnutrition PLAN: -Continue to titrate to feedings -Continue ICU management -Continue supportive care Physician Enlisted Advisor note has been reviewed by physician. Signing provider agrees with the documented findings, assessment, and plan of care. Objective - Vital Signs Vital signs: Vital Signs Temp 98.5 F 09/25/21 09:00 Pulse 93 09/25/21 14:00 Resp 35 H 09/25/21 14:00 BP 135/75 09/25/21 14:00 Pulse Ox 91 L 09/25/21 14:00 Intake & Output 09/24/21 09/25/21 09/25/21 18:59 06:59 18:59 Intake Total 8982.354 3300 575 Output Total 1700 975 550 Balance -381.502 333 25 Weight 59.8 kg 59.8 kg Intake: IV 879 756 315 .9NS 20 140 120 50 Pressure bag 39 36 15 Sodium Chloride 0.45% 1, 600 600 250 000 ml @ 50 mls/hr IV . Q20H ADDIE Rx#:[id number] levETIRAcetam IV 1,500 mg 100 In Saline 1 100ml.bag @ 400 mls/hr IVPB Q12HR ADDIE Rx#:[id number] Intake, IV Titration 187.498 Amount Levofloxacin 500Mg-D5w 100 Pmx 500 mg In Dextrose/ Water 1 100ml.bag @ 100 mls/hr IVPB Q24H ADDIE Rx#: [id number] propofoL 1,000 mg In 87.498 Empty Bag 1 bag @ Titrate IV .Q0M ADDIE Rx#: [id number] Tube Feeding 252 552 230 Other 30 Output: Urine 1700 975 550 Other: Voiding Method Indwelling Catheter Indwelling Catheter ABP, PAP, CO, CI - Last Documented Arterial Blood Pressure 86/54 - Labs CBC & Chem 7: 09/25/21 04:00 09/25/21 04:00 Labs: Abnormal Lab Results - Last 24 Hours (Table) 09/24/21 09/24/21 09/25/21 Range/Units 18:45 23:17 01:30 RBC (3.80-5.40) m/uL Hgb (11.4-16.0) gm/dL Hct (34.0-46.0) % MCV (80.0-100.0) fL Neutrophils # (1.3-7.7) k/uL Lymphocytes # (1.0-4.8) k/uL ABG pCO2 (35-45) mmHg ABG HCO3 (21-25) mmol/L ABG Total CO2 (19-24) mmol/L ABG O2 Saturation (94-97) % Sodium 135 L (137-145) mmol/L Potassium 3.3 L (3.5-5.1) mmol/L Carbon Dioxide 31 H (22-30) mmol/L BUN 19 H (7-17) mg/dL Creatinine 0.38 L (0.52-1.04) mg/dL Glucose 124 H (74-99) mg/dL POC Glucose (mg/dL) 115 H 112 H (75-99) mg/dL Calcium 8.0 L (8.4-10.2) mg/dL 09/25/21 09/25/21 09/25/21 Range/Units 04:00 04:00 05:50 RBC 2.77 L (3.80-5.40) m/uL Hgb 9.0 L (11.4-16.0) gm/dL Hct 27.8 L (34.0-46.0) % MCV 100.4 H (80.0-100.0) fL Neutrophils # 8.9 H (1.3-7.7) k/uL Lymphocytes # 0.6 L (1.0-4.8) k/uL ABG pCO2 51 H (35-45) mmHg ABG HCO3 35 H (21-25) mmol/L ABG Total CO2 37 H (19-24) mmol/L ABG O2 Saturation 97.2 H (94-97) % Sodium (137-145) mmol/L Potassium (3.5-5.1) mmol/L Carbon Dioxide 31 H (22-30) mmol/L BUN 18 H (7-17) mg/dL Creatinine (0.52-1.04) mg/dL Glucose 171 H (74-99) mg/dL POC Glucose (mg/dL) (75-99) mg/dL Calcium 7.9 L (8.4-10.2) mg/dL 09/25/21 09/25/21 Range/Units 12:16 13:53 RBC (3.80-5.40) m/uL Hgb (11.4-16.0) gm/dL Hct (34.0-46.0) % MCV (80.0-100.0) fL Neutrophils # (1.3-7.7) k/uL Lymphocytes # (1.0-4.8) k/uL ABG pCO2 (35-45) mmHg ABG HCO3 (21-25) mmol/L ABG Total CO2 (19-24) mmol/L ABG O2 Saturation (94-97) % Sodium (137-145) mmol/L Potassium (3.5-5.1) mmol/L Carbon Dioxide (22-30) mmol/L BUN (7-17) mg/dL Creatinine (0.52-1.04) mg/dL Glucose (74-99) mg/dL POC Glucose (mg/dL) 200 H 151 H (75-99) mg/dL Calcium (8.4-10.2) mg/dL
--- NOTE | 2021-09-25 14:58 | P.PN ---
Subjective Progress Note Date: 09/25/21 Principal diagnosis: Pneumonia pressure ulcer and multiple antibiotic allergies Patient is a 51-year-old female presenting to the hospital on September 10 for mental status changes patient did have a evidence of COVID-19 infection, with respiratory failure requiring intubation also with E. coli UTI and the patient did have multiple antibiotic allergies. The patient is status post tracheostomy and PEG tube placement on 09/23/2021 On today's evaluation that is 09/25/2021, patient remains to be afebrile, the patient is hemodynamically stable not requiring any pressor support, the patient FiO2 is currently stable and 40%, no significant purulent secretions through t he the ET or diarrhea has been reported by the nursing staff, patient has not been waking up for a repeat CAT scan has been done Objective - Vital Signs Vital signs: Vital Signs Temp 98.5 F 09/25/21 09:00 Pulse 104 H 09/25/21 10:00 Resp 34 H 09/25/21 10:00 BP 125/82 09/25/21 09:00 Pulse Ox 94 L 09/25/21 10:00 Intake & Output 09/24/21 09/25/21 09/25/21 18:59 06:59 18:59 Intake Total 7908.843 1329 403 Output Total 1700 975 450 Balance -381.502 333 -47 Weight 59.8 kg 59.8 kg Intake: IV 879 756 189 .9NS 20 140 120 30 Pressure bag 39 36 9 Sodium Chloride 0.45% 1, 600 600 150 000 ml @ 50 mls/hr IV . Q20H ADDIE Rx#:[id number] levETIRAcetam IV 1,500 mg 100 In Saline 1 100ml.bag @ 400 mls/hr IVPB Q12HR ADDIE Rx#:[id number] Intake, IV Titration 187.498 Amount Levofloxacin 500Mg-D5w 100 Pmx 500 mg In Dextrose/ Water 1 100ml.bag @ 100 mls/hr IVPB Q24H [facility] Rx#: [id number] propofoL 1,000 mg In 87.498 Empty Bag 1 bag @ Titrate IV .Q0M ADDIE Rx#: [id number] Tube Feeding 252 552 184 Other 30 Output: Urine 1700 975 450 Other: Voiding Method Indwelling Catheter Indwelling Catheter ABP, PAP, CO, CI - Last Documented Arterial Blood Pressure 99/66 - Exam GENERAL DESCRIPTION: Middle-aged male intubated on the vent, no distress. No tachypnea or accessory muscle of respiration use. LUNGS: Unlabored breathing. Decreased breath sound at the base. No wheeze or crackle. HEART: S1, S2, regular rate and rhythm. No loud murmur ABDOMEN: Soft, no tenderness , guarding or rigidity, no organomegaly EXTREMITIES: No edema of feet. Patient did have unstageable pressure ulcer to the sacral area and upper back with black esher no surrounding redness - Labs CBC & Chem 7: 09/25/21 04:00 09/25/21 04:00 Labs: Abnormal Lab Results - Last 24 Hours (Table) 09/24/21 09/24/21 09/25/21 Range/Units 18:45 23:17 01:30 RBC (3.80-5.40) m/uL Hgb (11.4-16.0) gm/dL Hct (34.0-46.0) % MCV (80.0-100.0) fL Neutrophils # (1.3-7.7) k/uL Lymphocytes # (1.0-4.8) k/uL ABG pCO2 (35-45) mmHg ABG HCO3 (21-25) mmol/L ABG Total CO2 (19-24) mmol/L ABG O2 Saturation (94-97) % Sodium 135 L (137-145) mmol/L Potassium 3.3 L (3.5-5.1) mmol/L Carbon Dioxide 31 H (22-30) mmol/L BUN 19 H (7-17) mg/dL Creatinine 0.38 L (0.52-1.04) mg/dL Glucose 124 H (74-99) mg/dL POC Glucose (mg/dL) 115 H 112 H (75-99) mg/dL Calcium 8.0 L (8.4-10.2) mg/dL 09/25/21 09/25/21 09/25/21 Range/Units 04:00 04:00 05:50 RBC 2.77 L (3.80-5.40) m/uL Hgb 9.0 L (11.4-16.0) gm/dL Hct 27.8 L (34.0-46.0) % MCV 100.4 H (80.0-100.0) fL Neutrophils # 8.9 H (1.3-7.7) k/uL Lymphocytes # 0.6 L (1.0-4.8) k/uL ABG pCO2 51 H (35-45) mmHg ABG HCO3 35 H (21-25) mmol/L ABG Total CO2 37 H (19-24) mmol/L ABG O2 Saturation 97.2 H (94-97) % Sodium (137-145) mmol/L Potassium (3.5-5.1) mmol/L Carbon Dioxide 31 H (22-30) mmol/L BUN 18 H (7-17) mg/dL Creatinine (0.52-1.04) mg/dL Glucose 171 H (74-99) mg/dL POC Glucose (mg/dL) (75-99) mg/dL Calcium 7.9 L (8.4-10.2) mg/dL 09/25/21 Range/Units 12:16 RBC (3.80-5.40) m/uL Hgb (11.4-16.0) gm/dL Hct (34.0-46.0) % MCV (80.0-100.0) fL Neutrophils # (1.3-7.7) k/uL Lymphocytes # (1.0-4.8) k/uL ABG pCO2 (35-45) mmHg ABG HCO3 (21-25) mmol/L ABG Total CO2 (19-24) mmol/L ABG O2 Saturation (94-97) % Sodium (137-145) mmol/L Potassium (3.5-5.1) mmol/L Carbon Dioxide (22-30) mmol/L BUN (7-17) mg/dL Creatinine (0.52-1.04) mg/dL Glucose (74-99) mg/dL POC Glucose (mg/dL) 200 H (75-99) mg/dL Calcium (8.4-10.2) mg/dL Assessment and Plan (1) Pneumonia Current Visit: Yes Status: Acute Code(s): J18.9 - PNEUMONIA, UNSPECIFIED ORGANISM SNOMED Code(s): 494053431 (2) Allergy to multiple antibiotics Current Visit: Yes Status: Acute Code(s): Z88.1 - ALLERGY STATUS TO OTHER ANTIBIOTIC AGENTS SNOMED Code(s): 623310912 (3) COVID-19 Current Visit: Yes Status: Acute Code(s): U07.1 - COVID-19 SNOMED Code(s): 765105441 Plan: 1-Patient with acute respiratory failure which is multifactorial in this patient who did have a covid19 pneumonia and a concern for possible secondary bacterial pneumonia patient With a new fever blood and sputum cultures were done and blood culture has been negative sputum showing Radha was more likely colonizer however underlying oropharyngeal candidiasis is not excluded, as well as MSSA patient did have a penicillin and cephalosporin ALLERGY, patient to continue with vancomycin and Eraxis and monitor clinical course closely 2-patient with unstageable sacral pressure ulcer as well as unstageable pressure ulcer to the upper back area, may benefit from surgical debridement or local wound care with the medahoney followed by moist dressing to keep the area off the pressure
[2021-09-25] MEDS: CLEVIDIPINE BUTYRATE 25 MG in EMPTY BAG 1 BAG IV SCH (16:27)
[2021-09-25] MEDS: ANIDULAFUNGIN 100 MG in SODIUM CHLORIDE 0.9% 100 ML IVPB SCH (17:25)
[2021-09-25 17:47] LABS: Glucose,Whole Blood 159 mg/dL (75-99)
[2021-09-25] MEDS: SODIUM CHLORIDE 0.45% 1,000 ML IV SCH (20:24)
[2021-09-25 23:47] LABS: Glucose,Whole Blood 127 mg/dL (75-99)
[2021-09-26] MEDS: INSULIN ASPART (NovoLOG) 100 UNIT/ML VIAL SQ SCH ×4 (00:09→18:49)
--- NOTE | 2021-09-26 01:01 | P.PN ---
Subjective Progress Note Date: 09/25/21 This is a pleasant 51 years old female with past medical history of Coronary Artery Disease, Heart Failure, CVA/TIA, Pulmonary Embolus (PE), Seizure Disorder, Last seizure 2009, CVA 2007 with L sided weakness arm and leg and has L foot drop, TIA 2018, cardiomyopathy, R PE and pneumothorax/pneumonia following leg fracture in 1994, gestational diabetes with all pregnancies , bilateral glaucoma with surgery, psoriasis in the past, UTIs. She is a status post Pacemaker, history of Bilateral eye surgery for glaucoma, Anxiety, Depression, Current every day smoker Patient presents because of altered mental status. Information was limited from the patient. It was obtained from the chart and medical staff. Also as per family patient was able to go to the bathroom, was more lethargic and tired over the last day. While in the emergency room focal mild seizure is noticed On admission patient had and fever of 101. She is tachypneic at 26-40, tachycardic 110-140, also she is hypoxic saturating 72% on room air Labs showing WBC of 10.5, hemoglobin of 16.3, platelet count of 197. INR 1.7. Sodium 164, creatinine 1.7, lactic acid elevated 4.6. Liver enzymes elevated with AST 202 and ALT 81. Bilirubin is normal at 1.3. Urine analysis is highly suspicious of infection Urine drug screen is negative Cash versus positive Chest x-ray showing left perihilar and left lower lobe area of infiltrate and small effusion correlates for pneumonia CT of the brain without contrast showing no intracranial hemorrhage, evidence of remote ischemic change. However there is vague low attenuation near the left thalamus and left cerebral peduncle. Acute ischemia in the differential diagnosis. Recommend stat MRI of brain with MRSA [place] as clinically warranted. In the emergency room patient was started on aztreonam and IV vancomycin, Keppra and heparin drip 09/11/2021 Patient today was still in the ICU, she was very weak and obtunded, she will wake up to certain stabilized and moans, she does not follow commands she cannot, gait she moved both extremities symmetrically. R on she had collapse of her left lung cancer and she has to be intubated and repeat chest x-ray showing better. A of the left lung. She is tachypneic with a breathing rate 22, no more fever since yesterday. Her sodium improved down to 144 and she was started on normal saline, creatinine 1.1, Ejection fraction showed 30-35% which is slice worsened from 06/2021 where it was 35-40% She remains on dexamethasone, IV vancomycin and clindamycin, heparin drip, Keppra and normal saline at 75 mL/h 09/12/2021 Patient with respiratory failures and she was intubated and placed on mechanical ventilation with pulmonary/critical care team following her mostly. There is no more seizure-like activity noticed. She still tachypneic with a breathing rate of 32 blood pressure 100/70, she is needing FiO2 of 80% and PEEP of 20. She has no more fevers since admission. Urine culture is growing gram-negative bacilli. Sodium is 146, WBCs is increased at 16.5 K. PH showing acidosis with 7.1 and elevated pCO2 at 83. Chest x-ray showing left sided opacities with near full. A of the left lung. Patient kept on antibiotics in the form of clindamycin and Levaquin and fluconazole. Also she remains on dexamethasone, and so a heparin to Lovenox. Also continued on seizure medication 1500 mg twice a day and IV fluids per pulmonary team. Neurology team on the case 09/13/2021 Patient remains intubated and sedated with pulmonary/critical care team following her closely. Her PEEP is lower today to 18. She remains on FiO2 of 50%. She is tachypneic at 32 about blood pressure is controlled. Her inflammatory markers are increased to LDH of 1009 and CRP of 25.1. Bicarb is elevated at 31 WBC is 17.7, sodium improved to 142. Creatinine improved to 0.6. Chest x-ray showed improving left lung infiltrate. PH is improved slightly 7.2 with pCO2 is slightly better at 79. Urine culture is growing E. coli which is sensitive to the antibiotics. Currently patient is covered with clindamycin, Levaquin and fluconazole. Also she is on dexamethasone 6 mg, Keppra 1500 mg and half-normal saline at 50 mL per hour Anticoagulation switch from heparin drip and to Lovenox 09/14/2021 Patient still intubated and sedated on mechanical ventilation with pulmonary/critical care team following her closely and just her vent setting. Today her FiO2 of 55%, and she is tachypneic at 33 breath per minute. Labs showing stable findings with sodium 141, creatinine 0.8, liver enzymes slightly elevated, LDH slightly down at 797 and CRP 2-3.2. Same leukocytosis at 14.7. Her pH is 7.2 and carbon dioxide is 82. D-dimer mildly elevated at 0.9, just x-ray showing bilateral infiltrate with no significant change from prior. She remains on the same antibiotic of clindamycin, Levaquin, dexamethasone, Keppra 1500 mg and half normal saline at 50 mL/h 09/15/2021 Patient in the ICU intubated and sedated, with pulmonary/critical care team following closely. FiO2 still 50%, hemodynamically showing both staple blood pressure 101/40, patient is tachypneic more than 30 per minutes. PEEP is lower. wbc of 11.3, hemoglobin 9.4, sodium 140, creatinine 0.8. chest x-ray: mild worsening infiltrate in the left lobe. patient continued with the same treatment of clindamycin, levaquin, dexamethasone, keppra and she received 1 l of normal saline today. 09/16/2021 Patient is seen and evaluated and follow-up continues to be closely monitored in the ICU. Multiple medical consultations following including infectious disease, pulmonary watch repair person, and neurology. Patient continues on mechanical vent with an FiO2 of 50% and PEEP is 10. Weaning is being continued and PEEP is being titrated down to 8. Patient continues with sedation holidays and very minimal propofol and patient is now off Nimbex and very minimal stimulus noted. Patient response to painful stimulus minimally. Plan is for possible CT of the brain repeat this afternoon. Patient also being closely monitored for continued seizures of which she does have a past medical history of. Patient is also Covid positive and infectious disease is following and patient is maintained on clindamycin along with Levaquin. Chest x-ray today shows correlate for left lower lobe pneumonia versus atelectasis with possible associated effusion. 09/17/2021 Patient is seen in follow-up this morning closely monitored in the ICU. Neurology also following and patient is maintained on IV Keppra. Patient also continues on IV antibiotics in the form of aztreonam and clindamycin with infectious disease following. Patient urine culture showing E. coli. Chest x- ray today shows chronic emphysematous changes with left basilar acute infiltrate and/or atelectasis and likely small left pleural effusion all redemonstrated with no significant change from previous day. Neurology following And okay to resume anticoagulant as there is no evidence of new intracranial process or hemorrhage. Patient is off sedation and continues to be unresponsive. 09/18/2021 Patient is evaluated again this morning and continues to be in the ICU on mechanical vent and being closely monitored. FiO2 is at 45% and PEEP is 8. Patient continues to be off sedation with no response for over 24 hours. Neurology following as well and have discussed overall prognosis with family and family discussing with other family members about CODE STATUS and treatment plan moving forward. Infectious disease also following and patient is maintained on IV Levaquin along with clindamycin and aztreonam and will continue. Urine cultures finalized showing E. coli and sputum culture preliminary is pending at this time. 09/19/2020 Patient evaluated today in the ICU on mechanical ventilation. Fi02 at 45% with a PEEP of 8. Propofol infusing, Nimbex and Levophed are currently on hold. Pr ecedex discontinued. There has been no response, and mental status is not improving. Still no response to verbal stimuli. Patient is being followed closely by neurology for this and is on IV keppra and tegretol. EEG consistant with toxic metabolic encepholapthy. Repeat chest xray today shows similar opacities given patient rotation. Stable support tubes. Mild pulmonary vascular congestion correlate with serum BNP. Blood cultures negative, pending finalized, sputum negative so far. Labs reviewed today: WBC 9.2, hgb 10.3, sodium 138, potassium 3.8, BUN 33, Cr 0.76, glucose in the 110's, calcium 7.9, AST 250, ALT 78, Albumin 2.3. Vitals reviewed: Temp 97.4, HR 126, RR 44, Blood pressure 113/80, 96% oxygen saturation on mechanical ventilation. 09/20/2021 Patient evaluated in ICU on mechanical ventilation with an Fi02 of 45%, PEEP of 12. Chest xray today shows left lower lobe atelectasis versus pneumonia with similar findings as previous. BNP yesterday 12,500, however xray reviewed and d oes not appear to be showing heart failure. She is in negative fluid balance. Status was addressed with family by neurology who is awaiting a phone call back. White count 12.8, RBC 3.5, sodium 137 potassium 3.8, chloride 101, CO2 33, BUN 35, creatinine 0.68, blood sugars in the 120s, AST 424, ALT 115, alk phos 63. Running temps today 100.8, heart rate 123, respiratory rate 36, blood pressure 95/65, oxygen saturation of 93-94%. Blood pressures are on the softer side 88/55. Current infusions include propofol which has been resumed as patient has not shown any signs of neurological improvement while on a propofol break. 09/21/2021 Patient is seen in follow up today and continues to be on mechanical vent with an FI02 of 45% with a peep of 8 and multiple medical consultations following. Ch est xray similar from previous with copd and continued focal basilar left lower lobe retrocardiac consolidation or atelectasis. Patient is on propofol and general surgery has been consulted for peg and trach placement. Plan for surgery is tomorrow. 09/22/2021 Patient is seen and evaluated in follow-up this morning continues on mechanical ventilation with a PEEP of 8 and FiO2 is 45%. General surgery following an plan is for PEG and trach placement today due to prolonged mechanical ventilation and no improvements or weaning from the vent. Patient continues on tube feeding along with Lovenox which is currently on hold for the surgical procedure. Patient's chest x-ray today shows diffuse bilateral infiltrates that are stable with no pneumothorax or pleural effusion noted. Patient also had gallbladder ultrasound secondary to elevated liver functions and shows hepatomegaly otherwise unremarkable. Patient is continued on antifungal's along with vancomycin and infectious disease following closely. Sputum cultures preliminary showing Radha glabrata and Staphylococcus aureus and most recent blood cultures have been negative. 09/23/2021 Patient is seen in follow-up this morning and patient was unable to receive PEG and trach with general surgery following yesterday and plan is for today. Patient continues on mechanical vent and FiO2 is 45% with a PEEP of 8. Lovenox and tube feeding currently on hold. Chest xray reviewed and no acute changes from yesterday. Continues to be unresponsive. Prognosis remains poor. 09/24/2021 Patient is seen this morning status post PEG and trach placement and is resuming tube feedings with general surgery following. Patient continues on mechanical vent with an FiO2 of 40% and PEEP is 8. Per nursing staff working on weaning sedation and assessing neuro status. Continues with being obtunded and no purposeful movements noted. Chest xray shows COPD with improvement in previous left pleural effusion with mild patchy infiltrates/retrocardiac atelectasis noted. 09/25/2021 Patient is seen and evaluated today continues to be in the ICU on mechanical ventilation and continues on sedation with attempts at weaning. FI02 is 40% and peep of 8. Multiple medical consultations following. Plan is for repeat ct of the brain sometime this afternoon. Per nursing staff patient is tolerating tube feeds. Chest xray today shows suboptimal study due to positioning and unable to exclude some worsening atelectasis or infiltrate. Review of systems: Unable to obtain as patient continues to be on mechanical ventilation and sedated Labs: WBC is 9.9, hemoglobin is 9.0, platelets are 333, sodium is 137, potassium is 3.9, BUN is 18, creatinine is 0.53, calcium is 7.9 Active Medications Acetaminophen (Acetaminophen Tab 325 Mg Tab) 650 mg PO Q6HR PRN PRN Reason: Fever and/ or Pain Last Admin: 09/21/21 23:30 Dose: 650 mg Documented by: Amiodarone HCl (Amiodarone 200 Mg Tab) 200 mg PO DAILY [facility] Last Admin: 09/25/21 08:55 Dose: 200 mg Documented by: Artificial Tears (Artificial Tears-Hypromellose Drops 15 Ml Btl) 1 drops BOTH EYES QID PRN PRN Reason: Dry Eye(s) Last Admin: 09/16/21 08:58 Dose: 1 drops Documented by: Carbamazepine (Carbamazepine 200 Mg Tab) 200 mg PO TID [facility] Last Admin: 09/25/21 08:56 Dose: 200 mg Documented by: Chlorhexidine Gluconate (Chlorhexidine Gluconate 15 Ml Cup) 15 ml MUCOUS MEM BID [facility] Last Admin: 09/25/21 08:55 Dose: 15 ml Documented by: Cholecalciferol (Cholecalciferol 125 Mcg (5000 Iu) Tablet) 125 mcg PO DAILY [facility] Last Admin: 09/25/21 08:55 Dose: 125 mcg Documented by: Dexamethasone Sodium Phosphate (Dexamethasone Sod Phosphate 10 Mg/Ml 1 Ml Vial) 6 mg IVP DAILY [facility] Last Admin: 09/25/21 08:54 Dose: 6 mg Documented by: Enoxaparin Sodium (Enoxaparin 40 Mg/0.4 Ml Syringe) 40 mg SQ DAILY [facility] Last Admin: 09/25/21 08:55 Dose: 40 mg Documented by: Hydromorphone HCl (Hydromorphone 1 Mg/Ml 1 Ml Syringe) 1 mg IVP Q2H PRN PRN Reason: Pain Last Admin: 09/25/21 12:27 Dose: 1 mg Documented by: Levetiracetam 1,500 mg/ IV (Solution) 100 mls @ 400 mls/hr IVPB Q12HR [facility] Last Admin: 09/25/21 08:56 Dose: 400 mls/hr Documented by: Sodium Chloride (Saline 0.45%) 1,000 mls @ 50 mls/hr IV .Q20H [facility] Last Admin: 09/24/21 20:16 Dose: Not Given Documented by: Anidulafungin 100 mg/ Sodium (Chloride) 130 mls @ 84 mls/hr IVPB DAILY@1700 [facility] Last Admin: 09/24/21 16:45 Dose: 84 mls/hr Documented by: Propofol 1,000 mg/ IV Solution 100 mls @ 0 mls/hr IV .Q0M [facility]; Protocol Last Titration: 09/24/21 11:28 Dose: 0 mcg/kg/min, 0 mls/hr Documented by: Levofloxacin 500 mg/ IV (Solution) 100 mls @ 100 mls/hr IVPB Q24H [facility] Last Admin: 09/25/21 10:13 Dose: 100 mls/hr Documented by: Clevidipine 25 mg/ IV Solution 50 mls @ 2 mls/hr IV .Q24H [facility]; Protocol Last Admin: 09/24/21 18:54 Dose: Not Given Documented by: Insulin Aspart (Insulin Aspart (Novolog) 100 Unit/Ml Vial) 0 unit SQ Q6H [facility]; Protocol Last Admin: 09/25/21 14:10 Dose: 1 unit Documented by: Miscellaneous Information (Potassium Replacement Protocol 1 Each Misc) 1 each MISCELLANE DAILY PRN; Protocol PRN Reason: Per Protocol Miscellaneous Information (Rx Info: Iv Contrast Was Given 1 Each Misc) 1 each MISCELLANE DAILY PRN PRN Reason: Per Protocol Stop: 09/27/21 08:28 Naloxone HCl (Naloxone 0.4 Mg/Ml 1 Ml Vial) 0.2 mg IV Q2M PRN PRN Reason: Opioid Reversal Pantoprazole Sodium (Pantoprazole 40 Mg/10 Ml Vial) 40 mg IV DAILY [facility] Last Admin: 09/25/21 08:54 Dose: 40 mg Documented by: Quetiapine Fumarate (Quetiapine 25 Mg Tab) 25 mg PO BID [facility] Last Admin: 09/25/21 08:55 Dose: 25 mg Documented by: Physical exam: GENERAL: The patient is intubated and sedated, FiO2 is 40% and PEEP is 8 HEENT: Pupils are round and equally reacting to light. EOMI. No scleral icterus. No conjunctival pallor. Normocephalic, atraumatic. No pharyngeal erythema. No thyromegaly. CARDIOVASCULAR: S1 and S2 present. No murmurs, rubs, or gallops. PULMONARY: diminished breath sounds bilaterally with coarse rhonchi noted ABDOMEN: Soft, nontender, nondistended, normoactive bowel sounds. No palpable organomegaly. MUSCULOSKELETAL: No joint swelling or deformity. EXTREMITIES: No cyanosis, clubbing, or pedal edema. NEUROLOGICAL: unresponsive, remains sedated SKIN: No rashes. no petechiae. Assessment: Altered mental status could be metabolic/toxic encephalopathy, ruled out other intracranial lesions, and possibly secondary to seizure status post peg tube and tracheostomy placement Left lower lobe pneumonia, rule out aspiration pneumonia Acute urinary tract infection, present on admission with culture showing E. coli Sepsis secondary to UTI and pneumonia Breakthrough seizure Bilateral interstitial Covid 19 pneumonia Acute hypoxic respiratory failure secondary to COVID-19 pneumonia requiring mechanical ventilation Increased inflammatory markers elevated troponin, most likely type II ischemia. Rule out primary cardiac causes Cardiomyopathy with most recent EF of 30-35% Hypernatremia, improved Acute kidney injury, improved Mild elevated liver enzymes History of coronary artery disease History of pulmonary embolism History of seizure disorder, last seizure was in 2009 as per documents History 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 left foot drop History of glaucoma status post surgery Status post permanent pacemaker Nicotine dependence GI prophylaxis DVT prophylaxis Full code Plan: This is a pleasant 51 years old female who presented with altered mental status, pneumonia, UTI, possible stroke although most likely old infarcts noted on CT, seizure and positive for covid pneumonia patient was intubated and continues on mechanical ventilation with a FiO2 of 45% and PEEP is 8. General surgery following and performed PEG and trach placement recently and resumed feeds and tolerating. Lovenox resumed as well. Continue with Keppra and neurology following and patient has been weaning off sedation and continues to be unresponsive. CT of the brain shows old right hemisphere infarct without change old left posterior frontal lobe cortical infarct without change and no acute abnormality. Patient is currently back on Propofol. Repeat CT of the brain ordered this afternoon and pending. pulmonary and infectious disease following, continue the broad-spectrum antibiotics in the form of levaquin along with antifungals Continue with dexamethasone, vitamin and zinc supplements along with Lovenox Cardiology team evaluated the patient for elevated troponin, patient does not have A. fib per [facility] Overall Prognosis remains poor and extremely guarded Objective - Vital Signs Vital signs: Vital Signs Temp 98.5 F 09/25/21 09:00 Pulse 106 H 09/25/21 09:00 Resp 38 H 09/25/21 09:00 BP 125/82 09/25/21 09:00 Pulse Ox 96 09/25/21 09:00 Intake & Output 09/24/21 09/25/21 09/25/21 18:59 06:59 18:59 Intake Total 4682.642 0866 198 Output Total 1700 975 300 Balance -381.502 333 -102 Weight 59.8 kg 59.8 kg Intake: IV 879 756 76 .9NS 20 140 120 20 Pressure bag 39 36 6 Sodium Chloride 0.45% 1, 600 600 50 000 ml @ 50 mls/hr IV . Q20H [facility] Rx#:[id number] levETIRAcetam IV 1,500 mg 100 In Saline 1 100ml.bag @ 400 mls/hr IVPB Q12HR [facility] Rx#:[id number] Intake, IV Titration 187.498 Amount Levofloxacin 500Mg-D5w 100 Pmx 500 mg In Dextrose/ Water 1 100ml.bag @ 100 mls/hr IVPB Q24H [facility] Rx#: [id number] propofoL 1,000 mg In 87.498 Empty Bag 1 bag @ Titrate IV .Q0M [facility] Rx#: [id number] Tube Feeding 252 552 92 Other 30 Output: Urine 1700 975 300 Other: Voiding Method Indwelling Catheter Indwelling Catheter ABP, PAP, CO, CI - Last Documented Arterial Blood Pressure 102/56 - Labs CBC & Chem 7: 09/25/21 04:00 09/25/21 04:00 Labs: Abnormal Lab Results - Last 24 Hours (Table) 09/24/21 09/24/21 09/24/21 Range/Units 11:24 18:45 23:17 RBC (3.80-5.40) m/uL Hgb (11.4-16.0) gm/dL Hct (34.0-46.0) % MCV (80.0-100.0) fL Neutrophils # (1.3-7.7) k/uL Lymphocytes # (1.0-4.8) k/uL ABG pCO2 (35-45) mmHg ABG HCO3 (21-25) mmol/L ABG Total CO2 (19-24) mmol/L ABG O2 Saturation (94-97) % Sodium (137-145) mmol/L Potassium (3.5-5.1) mmol/L Carbon Dioxide (22-30) mmol/L BUN (7-17) mg/dL Creatinine (0.52-1.04) mg/dL Glucose (74-99) mg/dL POC Glucose (mg/dL) 114 H 115 H 112 H (75-99) mg/dL Calcium (8.4-10.2) mg/dL 09/25/21 09/25/21 09/25/21 Range/Units 01:30 04:00 04:00 RBC 2.77 L (3.80-5.40) m/uL Hgb 9.0 L (11.4-16.0) gm/dL Hct 27.8 L (34.0-46.0) % MCV 100.4 H (80.0-100.0) fL Neutrophils # 8.9 H (1.3-7.7) k/uL Lymphocytes # 0.6 L (1.0-4.8) k/uL ABG pCO2 (35-45) mmHg ABG HCO3 (21-25) mmol/L ABG Total CO2 (19-24) mmol/L ABG O2 Saturation (94-97) % Sodium 135 L (137-145) mmol/L Potassium 3.3 L (3.5-5.1) mmol/L Carbon Dioxide 31 H 31 H (22-30) mmol/L BUN 19 H 18 H (7-17) mg/dL Creatinine 0.38 L (0.52-1.04) mg/dL Glucose 124 H 171 H (74-99) mg/dL POC Glucose (mg/dL) (75-99) mg/dL Calcium 8.0 L 7.9 L (8.4-10.2) mg/dL 09/25/21 Range/Units 05:50 RBC (3.80-5.40) m/uL Hgb (11.4-16.0) gm/dL Hct (34.0-46.0) % MCV (80.0-100.0) fL Neutrophils # (1.3-7.7) k/uL Lymphocytes # (1.0-4.8) k/uL ABG pCO2 51 H (35-45) mmHg ABG HCO3 35 H (21-25) mmol/L ABG Total CO2 37 H (19-24) mmol/L ABG O2 Saturation 97.2 H (94-97) % Sodium (137-145) mmol/L Potassium (3.5-5.1) mmol/L Carbon Dioxide (22-30) mmol/L BUN (7-17) mg/dL Creatinine (0.52-1.04) mg/dL Glucose (74-99) mg/dL POC Glucose (mg/dL) (75-99) mg/dL Calcium (8.4-10.2) mg/dL
[2021-09-26 04:50] LABS: Basophils % (A) 0 %; Eosinophils % (A) 1 %; HCT 27.6 % (34.0-46.0); HGB 8.8 gm/dL (11.4-16.0); Lymphocytes % (A) 11 %; MCH 32.1 pg (25.0-35.0); MCHC 31.8 g/dL (31.0-37.0); MCV 100.9 fL (80.0-100.0); Macrocytosis Slight; Mean Platelet Volume 9.6; Monocytes # (A) 0.3 k/uL (0-1.0); Monocytes % (A) 4 %; Neutrophils # (A) 7.3 k/uL (1.3-7.7); Neutrophils % (A) 83 %; Platelet Count 330 k/uL (150-450); RBC 2.73 m/uL (3.80-5.40); RDW 14.7 % (11.5-15.5); WBC 8.7 k/uL (3.8-10.6)
[2021-09-26 05:01] LABS: African American GFR (CKD) >90 (>60 ml/min/1.73 sqM); Anion Gap 2 mmol/L; Blood Urea Nitrogen 22 mg/dL (7-17); Calcium 8.4 mg/dL (8.4-10.2); Carbon Dioxide 34 mmol/L (22-30); Chloride 102 mmol/L (98-107); Glucose 142 mg/dL (74-99); Non-African American GFR(CKD) >90 (>60 ml/min/1.73 sqM); Potassium 3.6 mmol/L (3.5-5.1); Sodium 138 mmol/L (137-145)
[2021-09-26] MEDS ORDERED: Potassium Replacement Protocol 1 EACH MISC MISCELLANE PRN (05:25)
[2021-09-26] MEDS ORDERED: POTASSIUM BICARBONATE/CIT AC 20 MEQ TABLET.EFF NG-TUBE SCH (06:00)
[2021-09-26 06:04] LABS: ABG Base Excess 11.4 mmol/L; ABG HCO3 34 mmol/L (21-25); ABG Oxygen Saturation 98.6 % (94-97); ABG PCO2 42 mmHg (35-45); ABG PH 7.52 (7.35-7.45); ABG PO2 111 mmHg (83-108); ABG TCO2 36 mmol/L (19-24); Allen Test Performed? Yes
--- NOTE | 2021-09-26 06:33 | XR ---
EXAMINATION TYPE: XR chest 1V portable DATE OF EXAM: 09/26/2021 COMPARISON: 09/25/2021 HISTORY: Shortness of breath TECHNIQUE: Single frontal view of the chest is obtained. FINDINGS: There is a small retrocardiac opacity obscuring the left hemidiaphragm which could represe nt a small effusion or atelectasis. There are prominent interstitial markings in the lung bases bilat erally which are stable. There is no pneumothorax. Heart size is normal and the pulmonary vasculature is not congested. Allogr aft is no change in single lead cardiac pacemaker tracheostomy tube the osseous structures are intact . IMPRESSION: No significant interval change as described above.
[2021-09-26] MEDS: PANTOPRAZOLE 40 MG/10 ML VIAL IV SCH (08:41)
[2021-09-26] MEDS: CHLORHEXIDINE GLUCONATE 15 ML CUP MUCOUS MEM SCH ×2 (08:41→20:10)
[2021-09-26] MEDS: ENOXAPARIN 40 MG/0.4 ML SYRINGE SQ SCH (08:42)
[2021-09-26] MEDS: CHOLECALCIFEROL 125 MCG (5000 IU) TABLET PO SCH (08:44)
[2021-09-26] MEDS: levETIRAcetam IV 1,500 MG in SALINE 1 100ML.BAG IVPB SCH ×2 (08:44→20:10)
[2021-09-26] MEDS: carBAMazepine 200 MG TAB PO SCH ×3 (08:44→20:10)
[2021-09-26] MEDS: QUEtiapine 25 MG TAB PO SCH ×2 (08:44→20:10)
[2021-09-26] MEDS: LEVOFLOXACIN 500MG-D5W PMX 500 MG in DEXTROSE/WATER 1 100ML.BAG IVPB SCH (08:44)
[2021-09-26] MEDS: AMIODARONE 200 MG TAB PO SCH (08:45)
[2021-09-26] MEDS: DEXAMETHASONE SOD PHOSPHATE 10 MG/ML 1 ML VIAL IVP SCH (08:45)
[2021-09-26] MEDS: HYDROmorphone 1 MG/ML 1 ML SYRINGE IVP PRN (08:47)
--- NOTE | 2021-09-26 09:27 | P.PN ---
Subjective Progress Note Date: 09/25/21 Patient was seen for a follow-up. Patient had undergone tracheostomy and PEG placement 09/24/2021. Patient is off propofol since 11:30 AM on 09/24/2021. Patient has received 1 mg Dilaudid twice for some respiratory difficulty, as she was breathing up to 40s. Patient is still obtunded. Patient is not showing any purposeful movement. Patient does open her eyes slightly to calling her name, minimally tracks. No seizures have been reported by the staff. No twitching noticed. Objective - Vital Signs Vital signs: Vital Signs Temp 98.4 F 09/26/21 04:00 Pulse 104 H 09/26/21 07:00 Resp 27 H 09/26/21 07:00 BP 156/89 09/26/21 07:00 Pulse Ox 95 09/26/21 07:00 Intake & Output 09/25/21 09/26/21 09/26/21 18:59 06:59 18:59 Intake Total 1148 1660 120 Output Total 1275 1085 Balance -127 575 120 Weight 59.8 kg 59.6 kg Intake: IV 630 819 63 .9NS 20 100 130 10 Pressure bag 30 39 3 Sodium Chloride 0.45% 1, 500 650 50 000 ml @ 50 mls/hr IV . Q20H ADDIE Rx#:[id number] Intake, IV Titration 100 Amount Anidulafungin 100 mg In 100 Sodium Chloride 0.9% 100 ml @ 84 mls/hr IVPB DAILY @1700 ADDIE Rx#:[id number] Tube Feeding 458 741 57 Other 60 Output: Urine 1275 1085 Other: Voiding Method Indwelling Catheter Indwelling Catheter Indwelling Catheter # Bowel Movements 1 ABP, PAP, CO, CI - Last Documented Arterial Blood Pressure 83/55 - Exam Patient is obtunded. Patient minimally opens her eyes to calling her name, and couple times appears that she tracked slightly with her eyes. Patient otherwise did not follow commands. Does not withdraw to painful stimuli. Patient does have history of left hemiparesis from previous stroke. Patient has tracheostomy in place. Patient on a ventilator. Her pupils are round and reacting. Oculocephalics present. Corneals present. Face appears symmetric. Rest of the examination could not be performed because of mental status. - Labs CBC & Chem 7: 09/26/21 04:00 09/26/21 04:00 Labs: Abnormal Lab Results - Last 24 Hours (Table) 09/25/21 09/25/21 09/25/21 Range/Units 12:16 13:53 17:45 RBC (3.80-5.40) m/uL Hgb (11.4-16.0) gm/dL Hct (34.0-46.0) % MCV (80.0-100.0) fL ABG pH (7.35-7.45) ABG pO2 (83-108) mmHg ABG HCO3 (21-25) mmol/L ABG Total CO2 (19-24) mmol/L ABG O2 Saturation (94-97) % Carbon Dioxide (22-30) mmol/L BUN (7-17) mg/dL Creatinine (0.52-1.04) mg/dL Glucose (74-99) mg/dL POC Glucose (mg/dL) 200 H 151 H 159 H (75-99) mg/dL 09/25/21 09/26/21 09/26/21 Range/Units 23:45 04:00 04:00 RBC 2.73 L (3.80-5.40) m/uL Hgb 8.8 L (11.4-16.0) gm/dL Hct 27.6 L (34.0-46.0) % MCV 100.9 H (80.0-100.0) fL ABG pH (7.35-7.45) ABG pO2 (83-108) mmHg ABG HCO3 (21-25) mmol/L ABG Total CO2 (19-24) mmol/L ABG O2 Saturation (94-97) % Carbon Dioxide 34 H (22-30) mmol/L BUN 22 H (7-17) mg/dL Creatinine 0.38 L (0.52-1.04) mg/dL Glucose 142 H (74-99) mg/dL POC Glucose (mg/dL) 127 H (75-99) mg/dL 09/26/21 Range/Units 06:00 RBC (3.80-5.40) m/uL Hgb (11.4-16.0) gm/dL Hct (34.0-46.0) % MCV (80.0-100.0) fL ABG pH 7.52 H (7.35-7.45) ABG pO2 111 H (83-108) mmHg ABG HCO3 34 H (21-25) mmol/L ABG Total CO2 36 H (19-24) mmol/L ABG O2 Saturation 98.6 H (94-97) % Carbon Dioxide (22-30) mmol/L BUN (7-17) mg/dL Creatinine (0.52-1.04) mg/dL Glucose (74-99) mg/dL POC Glucose (mg/dL) (75-99) mg/dL Assessment and Plan Assessment: * Altered mental status, likely due to toxic metabolic encephalopathy. Causes multifactorial as mentioned below. * Breakthrough seizure, likely due to multiple metabolic derangements. Patient had seizure disorder for long time, seizures in remission since 2009. * Acute Covid-19 infection with pneumonia. * Recent acute UTI with E. coli. * Severe hypernatremia, resolved * Status post tracheostomy and PEG placement 09/24/2021. * History of Atrial Fibrillation with RVR * Dehydration * Elevated cardiac enzymes * Acute kidney injury, likely due to dehydration/prerenal, now resolved. * Elevated liver enzymes, still elevated. 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 * History of pacemaker. Plan: * Patient had a repeat computed tomography scan of head performed today. Neurology was called to reassess the computed tomography scan. I reviewed the images personally, shows no acute ischemic process. Evidence of chronic bilateral encephalomalacia, stable as compared to last CT scans. I also reviewed it with the radiologist. * Patient continues to be significantly encephalopathic. Ammonia is normal. Patient has slightly better response today as compared to yesterday with minimally opening the eyes and appears to track with eyes couple times. * Patient's blood test shows Tegretol level <3.0, Keppra 79.2 and Neurontin level <1.0. Elevated Keppra level was because of acute renal failure on presentation, which now has resolved. * Continue Tegretol 200 mg 3 times a day and Keppra 1500 mg twice a day * EEG was performed, which revealed background slowing of at least moderate degree. This is suggestive of generalized cerebral dysfunction as can be seen with toxic metabolic encephalopathy or due to diffuse structural brain abnormality or postictal effect. No epileptiform activity was seen. * Resume anticoagulation with Eliquis as early as possible from neurology point to prevent recurrent strokes from atrial fibrillation, unless any obvious contraindications. Cardiology also on board. Defer anticoagulation to IM, critical care and cardiology * Other medical management as per IM, critical care. * Patient currently on Levaquin. ID following. * Please call neurology if any concerns. Discussed with patient's nurse in detail. Neurology will sign off.
[2021-09-26] MEDS ORDERED: POTASSIUM CHLORIDE ER 20 MEQ TAB.ER PO STA (11:20)
--- NOTE | 2021-09-26 12:19 | P.PN ---
Subjective Progress Note Date: 09/26/21 Principal diagnosis: Respiratory failure. Reevaluated today on 09/18/21, patient remains in the ICU, intubated and mechanically ventilated. Patient is not making any significant neurological improvement. She has been off sedation for few days, yesterday we started the patient only on Precedex, and that's mostly to keep her synchronous with the ventilator. Again her mental status is basically about the same, and she is not showing much improvement. She opens eyes slightly to deep painful stimuli, but no purposeful movement and no responses to verbal stimuli. She is on assist control rate of 32 tidal volume 325 FiO2 was 50% and PEEP was 8 however I cut down her FiO2 to 45%. Patient is receiving enteral feeding, vital AF at 34 mL per hour. ABG today showed a pO2 of 107 pCO2 44 pH of 7.46. Basic metabolic profile is normal WBC count is 7.6 hemoglobin is 9.5. No significant metabolic abnormality to explain her encephalopathy at this point. Patient is still being followed by neurology on the case. Patient is still being treated for coronary virus infection, and UTI on admission secondary to E. coli. 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 No acute process was noted. Patient remains on seizure medications as per neurology including Keppra and Tegretol. EEG showed slowing/moderate degree of slowing suggestive of generalized cerebral dysfunction. This is seen with toxic metabolic encephalopathy. Reevaluated today on 09/19/21, patient remains in the ICU, intubated and mechanically ventilated, she is on assist control rate of 32 tidal volume of 325 FiO2 45% and PEEP of 8. Patient had to be placed on propofol yesterday at 50 mcg/kg/m, she is on IV fluid at 50 mL per hour. ABG showed a pO2 of 78 pCO2 of 47 pH of 7.44. Chest x-ray is basically about, no change. WBC count is 9.2 hemoglobin is 10.3. Electrolytes are normal. Again the patient had to be placed back on propofol because she was getting agitated, restless, and not syn chronous with the ventilator yesterday. Remains on propofol today, and patient is not responding to any stimuli. Hence I'm keeping her on propofol, I believe the patient will eventually require tracheostomy and PEG tube placement unless CODE STATUS is changed to comfort care. Chest x-ray is basically showing no significant abnormalities. She does have mild pulmonary vascular congestion. Reevaluated today on 09/20/21, patient remains in the ICU, intubated and mechanically ventilated. She is on assist control rate of 32 tidal volume 325 FiO2 is 45%, PEEP is at 8. Patient is back on propofol, intermittently has been receiving Dilaudid, patient becomes at times agitated, and asynchronous with the ventilator, early in the week, I was able to hold sedation for a number of days, however the patient remained unresponsive to verbal stimuli, and apparently she had significant toxic metabolic encephalopathy. CT of the brain was nondiagnostic. Patient was seen by neurology on consultation, and still believe that this is a occipital metabolic encephalopathy picture. Patient is on propofol now at 50 mcg/kg/m, not requiring any other sedatives or narcotics. Patient has been feeding/enteral feeding vital AF at 34 mL per hour. ABG today showed a pO2 of 101 pCO2 47 pH of 7.44. Chest x-ray continues to show retrocardiac density likely atelectasis, otherwise no significant findings on the chest x-ray Progress note dated 09/21/2021. This is a 51-year-old female, who was admitted to the hospital on September 10. She came in with mental status changes, sepsis, and hypernatremia. She came to the intensive care unit on September 10, and was intubated for respiratory failure on 09/11/2021. The patient did test positive for coronavirus. She remains on mechanical ventilator. The patient is on the volume assist control mode, rate 32, tidal volume 325, FiO2 45%, and PEEP of 8. Blood gases show pO2 of 91, pCO2 49, and pH is 7.45. The patient's getting half-normal saline at 50 mL an hour, propofol at 50 mcg/kg/m, and vital AF at 34 mL an hour, which is goal. White count 10.2, hemoglobin 9.7, hematocrit 30.4, and platelet count was normal. Sodium 139, potassium 3.5, chlorides 104, CO2 32, anion gap 3, BUN 34, and creatinine 0.65. Microbiologic studies show evidence of Escherichia coli in the urine from September 10, and presumptive staph aureus in the sputum from August 30 0. The chest x-ray shows left lower lobe atelectasis and/or infiltrates. The patient is currently on antifungals, and aztreonam. The infectious disease doctor is currently on the case. Progress note dated 09/22/2021. 51-year-old female who was admitted to the hospital on 09/10/2021. She came in with mental status changes, sepsis, and hypernatremia. She came to the intensive care unit on September 10, and was intubated for respiratory failure on 09/11/2021. She did test positive for coronavirus. She remains on the mechanical ventilator. The plan is for a tracheostomy and PEG tube placement today by one of the surgeons. The patient also had a right radial arterial line placed by our team. Currently, she is on the volume assist control mode, rate 32, tidal volume 325, FiO2 45%, PEEP of 8. Arterial blood gases show pO2 of 88, pCO2 46, and a pH is 7.48. The patient is on propofol at 40 mcg/kg/m, saline at 20 mL an hour, half-normal saline at 50 mL an hour, and vital, at 46 mL an hour, which is goal. Obviously, tube feeds on hold for anticipated surgery today. White count 9.3, hemoglobin 8.8, hematocrit 27.3, and platelet count 269,000. Sodium 139, potassium 3.4, chlorides 104, CO2 33, anion gap 2, BUN 26, and creatinine 0.54. AST 500, ALT 166. An ultrasound the right upper quadrant will be ordered. Chest x-ray shows persistent left lower lobe atelectasis and/or inf iltrate. Progress note dated 09/23/2021. This is a 51-year-old female, again seen in room 254. She's now been in the hospital for 13 days. She was admitted on 09/10/2021. She came in with mental status changes, and sepsis. She came to the intensive care unit on September 10, and was intubated respiratory failure on 09/11/2021. She did test positive for coronavirus. She remains on the mechanical ventilator. The patient was to have a tracheostomy and PEG tube placement performed. It was to be done yesterday but for some reason did not take place. She remains on the volume assist control, rate 32, tidal volume 325, FiO2 45%, and PEEP of 8. Blood gases show pO2 80, pCO2 39, pH is 7.48. The patient's getting saline at 20 mL an hour, half-normal saline at 50 mL an hour, and tube feeds are currently on hold. White count 10, hemoglobin 9.3, hematocrit 29.2, and platelet count 341,000. Sodium 139, potassium 3.6, chlorides 106, CO2 27, anion gap 6, BUN 23, and creatinine 0.59. Albumin is 2.4. Microbiology from September 10, shows a urine that was positive for an E. coli, and a sputum from September 17, it is positive for Staphylococcus aureus. The patient is currently on vancomycin and Eraxis. Progress note dated 09/24/2021. 51-year-old female, again seen in room 254. The patient underwent tracheostomy and PEG tube placement yesterday, on September 23. The patient is now been in the hospital for 14 days. The patient was admitted on 09/10/2021. She did test positive for coronavirus. The patient was intubated on 09/11/2021, for respiratory failure. Currently, she is on volume assist control, rate 32, tidal volume 325, FiO2 40%, and PEEP of 8. Arterial blood gases show pO2 of 79, pCO2 39, pH is 7.45. The patient's getting half-normal saline at 50 mL an hour. She is on propofol at 40 mcg/kg/m. Tube feedings are still on hold. She's getting an antifungal, as well as Levaquin. Labs include a white count 9.1, hemoglobin 9.5, hematocrit 29.5 and platelet count which is normal. Sodium 133, potassium 3.4, chlorides 101, CO2 26, anion gap 6, BUN 19, and creatinine 0.53. AST is 229, and ALTs 159. Microbiologic studies are positive for a urine sample from September 10, for E. coli, and methicillin sensitive staph aureus in the sputum from September 17. Chest x-ray shows patchy bibasilar and bilateral infiltrates. Progress note dated 09/25/2021. 51-year-old female again seen in room 254. She underwent tracheostomy and PEG tube placement on September 23. The patient has been in the hospital now for 15 days. She remains on the ventilator. She is on the volume assist control mode, rate 32, tidal volume 325, FiO2 40%, PEEP of 8. Blood gases show pO2 of 95, pCO2 51, and pH is 7.44. The patient's getting half-normal saline at 50 mL an hour, and currently, propofol is off. She is also on vital 1.2 at 46 mL an hour, which is goal. She remains on Levaquin for a sputum positive for methicillin sensitive staph aureus. Also, the patient is on an antifungal as per infectious diseases. Because of her poor mental status, we will repeat a computed tomography scan of the brain with contrast. Her hoping to be able to get this patient to a long-term acute care facility or specialized nursing facility. White count 9.9, hemoglobin 9, hematocrit 26.8 and platelet count 333,000. Sodium 137, potassium 3.9, chlorides 102, CO2 31, anion gap 4, BUN 18, creatinine 0.53. Chest x-ray shows a tracheostomy tube in the midline. There is diffuse bilateral infiltrates, with worsening in the retrocardiac area. Progress note dated 09/26/2021. This is a 51-year-old female again seen in room 254. She underwent tracheostomy and PEG tube placement on September 23. She's now been in the hospital for 16 days. She remains on the ventilator. The patient was admitted on 09/10/2021. She did test positive for coronavirus. The patient was intubated on 09/11/2021, for respiratory failure. She remains on the ventilator. She is on the volume assist control mode, rate 32, tidal volume 325, FiO2 40%, to be reduced down to 35%, and PEEP of 8. Blood gases show pO2 of 111, pCO2 42, and a pH is 7.52. The patient is receiving saline at 20 mL an hour, half-normal saline at 50 mL an hour, and vital AF at 57 mL an hour, which is goal. The patient remains on Levaquin and Eraxis. The patient's chest x-ray is unchanged. Recent repeat brain CT was negative. White count 8.7, hemoglobin 8.8, hematocrit 27.6, and platelet count 330,000. Sodium 138, potassium 3.6, chlorides 102, CO2 34, anion gap 2, BUN 22, creatinine 0.38. Objective - Vital Signs Vital signs: Vital Signs Temp 98 F 09/26/21 08:00 Pulse 103 H 09/26/21 11:00 Resp 31 H 09/26/21 11:00 BP 164/84 09/26/21 11:00 Pulse Ox 94 L 09/26/21 11:00 Intake & Output 09/25/21 09/26/21 09/26/21 18:59 06:59 18:59 Intake Total 1148 1660 880 Output Total 1275 1085 500 Balance -127 575 380 Weight 59.8 kg 59.6 kg Intake: IV 630 819 452 .9NS 20 100 130 40 Pressure bag 30 39 12 Sodium Chloride 0.45% 1, 500 650 200 000 ml @ 50 mls/hr IV . Q20H [facility] Rx#:[id number] levETIRAcetam IV 1,500 mg 200 In Saline 1 100ml.bag @ 400 mls/hr IVPB Q12HR ADDIE Rx#:[id number] Intake, IV Titration 100 200 Amount Anidulafungin 100 mg In 100 Sodium Chloride 0.9% 100 ml @ 84 mls/hr IVPB DAILY @1700 ADDIE Rx#:[id number] Levofloxacin 500Mg-D5w 200 Pmx 500 mg In Dextrose/ Water 1 100ml.bag @ 100 mls/hr IVPB Q24H ADDIE Rx#: [id number] Tube Feeding 458 741 228 Other 60 Output: Urine 1275 1085 500 Other: Voiding Method Indwelling Catheter Indwelling Catheter Indwelling Catheter # Bowel Movements 1 ABP, PAP, CO, CI - Last Documented Arterial Blood Pressure 76/50 - Exam No acute distress, currently off propofol, with a midline tracheostomy. HEENT examination is grossly unremarkable. Neck supple. Full range of motion. No adenopathy thyromegaly or neck vein distention. Midline tracheostomy is noted. Cardiovascular examination reveals regular rhythm rate. S1-S2 normal. No S3 or S4. No discernible murmur noted. Heart rate 102 bpm. Heart sounds are distant. Lungs reveal bilateral expiratory rhonchi and wheezes. No crackles. Breath sounds are equal bilaterally. Saturations are 94%. Abdomen soft, without bowel sounds. No masses. PEG tube is noted. Extremities are intact. No cyanosis or clubbing. Trace edema is noted. Skin is without rash or lesion. Neurologic examination reveals a very poorly responsive patient, off of all sedation. - Labs CBC & Chem 7: 09/26/21 04:00 09/26/21 04:00 Labs: Abnormal Lab Results - Last 24 Hours (Table) 09/25/21 09/25/21 09/25/21 Range/Units 12:16 13:53 17:45 RBC (3.80-5.40) m/uL Hgb (11.4-16.0) gm/dL Hct (34.0-46.0) % MCV (80.0-100.0) fL ABG pH (7.35-7.45) ABG pO2 (83-108) mmHg ABG HCO3 (21-25) mmol/L ABG Total CO2 (19-24) mmol/L ABG O2 Saturation (94-97) % Carbon Dioxide (22-30) mmol/L BUN (7-17) mg/dL Creatinine (0.52-1.04) mg/dL Glucose (74-99) mg/dL POC Glucose (mg/dL) 200 H 151 H 159 H (75-99) mg/dL 09/25/21 09/26/21 09/26/21 Range/Units 23:45 04:00 04:00 RBC 2.73 L (3.80-5.40) m/uL Hgb 8.8 L (11.4-16.0) gm/dL Hct 27.6 L (34.0-46.0) % MCV 100.9 H (80.0-100.0) fL ABG pH (7.35-7.45) ABG pO2 (83-108) mmHg ABG HCO3 (21-25) mmol/L ABG Total CO2 (19-24) mmol/L ABG O2 Saturation (94-97) % Carbon Dioxide 34 H (22-30) mmol/L BUN 22 H (7-17) mg/dL Creatinine 0.38 L (0.52-1.04) mg/dL Glucose 142 H (74-99) mg/dL POC Glucose (mg/dL) 127 H (75-99) mg/dL 09/26/21 Range/Units 06:00 RBC (3.80-5.40) m/uL Hgb (11.4-16.0) gm/dL Hct (34.0-46.0) % MCV (80.0-100.0) fL ABG pH 7.52 H (7.35-7.45) ABG pO2 111 H (83-108) mmHg ABG HCO3 34 H (21-25) mmol/L ABG Total CO2 36 H (19-24) mmol/L ABG O2 Saturation 98.6 H (94-97) % Carbon Dioxide (22-30) mmol/L BUN (7-17) mg/dL Creatinine (0.52-1.04) mg/dL Glucose (74-99) mg/dL POC Glucose (mg/dL) (75-99) mg/dL Assessment and Plan Assessment: Acute hypoxemic respiratory failure secondary to coronavirus associated pneumonia, status post intubation and mechanical ventilation on 09/11/2021. Status post tracheostomy and PEG tube placement on 09/23/2021. Acute mental status changes, secondary to toxic/metabolic encephalopathy. Methicillin sensitive staph aureus pneumonia, left lower lobe. Dehydration, on admission, resolved. History of seizure disorder. Prior history of pulmonary embolism. Paroxysmal atrial fibrillation. Cardiomyopathy with ejection fraction of 30-35%. Status post pacemaker implantation. History of saccular GRIND[employer] CHIPPER aneurysm, 4 mm. Hypothyroidism. CAD. History of CVA in 2007. History of recurrent E. coli urinary tract infections. History of psoriasis. History of sacral/coccygeal decubitus ulcer. Plan: Plan dated 09/21/2021. Because of the patient's overall poor status, and the fact that she still is a full code, surgery will be consulted for possible tracheostomy and PEG tube placement. We will continue to follow make recommendations where appropriate. Again, prognosis is very poor. She remains on mechanical ventilator. She remains on appropriate antibiotics. Infectious diseases is following. We will continue to follow make recommendations where appropriate. Plan dated 09/22/2021. The patient is going to hopefully have a tracheostomy and PEG tube placement today. The patient remains on propofol at 40 mcg/kg/m. We did replace the arterial line. The previous arterial line was poorly functional. She had a right radial arterial line placed today by our team. A previous urine culture from September 10 showed Escherichia coli. Sputum from September 17 showed Radha, and presumptive Staphylococcus aureus. The patient remains on an antifungal, and vancomycin as per infectious diseases. Mariam follow and make recommendations where appropriate. Prognosis is certainly guarded. Plan dated 09/23/2021. The patient had methicillin sensitive staph aureus in the sputum and is c urrently on vancomycin. That can be changed to something other than vancomycin. The patient should have a tracheostomy and PEG tube placement today. It was to be done yesterday. The patient is currently off all sedation. Tube feedings on hold. Oxygenation and ventilation are excellent. We will continue to follow make recommendations where appropriate. Overall prognosis remains very guarded. Most recent brain CT shows old infarcts, with nothing acute and no major change. Plan dated 09/24/2021. The patient underwent tracheostomy and PEG tube placement yesterday, 09/23/2021. She remains on the mechanical ventilator. Labs, x-rays, and medications are all reviewed. The staph. in the sputum, was methicillin sensitive. Hence, vancomycin was discontinued, and she was started on Levaquin. She remains on the antifungal. We will continue to follow make recommendations where approp riate. We'll attempt to wean her off the propofol. Additional recommendations and suggestions are coming. Prognosis is guarded. Plan dated 09/25/2021. We'll attempt another CAT scan of the brain with contrast, because of the patient's poor mental status. Two prior CT scans did not show anything acute. The patient remains on Levaquin, and Eraxis. The patient remains off of all. We will continue to follow make recommendations where appropriate. Overall prognosis remains guarded. Plan dated 09/26/2021. Repeat brain CT with contrast, was negative for anything acute. The patient's mental status remains poor. The patient is currently off all sedatives. The patient remains on antibiotic and antifungal as above. The sputum was positive for methicillin sensitive staph aureus. Fungal cultures are currently negative. The patient's chest x-ray is unchanged. The FiO2 was reduced on the 35%. Labs, x-rays, and medications are all reviewed. We will continue to follow and make recommendations where appropriate. Prognosis is certainly guarded. Time with Patient: Greater than 30
[2021-09-26 12:45] LABS: Glucose,Whole Blood 174 mg/dL (75-99)
[2021-09-26] MEDS: SODIUM CHLORIDE 0.45% 1,000 ML IV SCH (12:51)
[2021-09-26] MEDS: CLEVIDIPINE BUTYRATE 25 MG in EMPTY BAG 1 BAG IV SCH (13:16)
--- NOTE | 2021-09-26 14:10 | P.PN ---
Subjective Progress Note Date: 09/26/21 CHIEF COMPLAINT: Coronavirus pneumonia HISTORY OF PRESENT ILLNESS: The patient is a 51-year-old female status post tracheostomy and gastrostomy placement 09/23/2021. She is on anticoagulation. She is on full mechanical ventilation intensive care unit. Patient had altered mental status with CT of the head obtained. She is in antifungals. ROS: No fevers or chills. No new chest pain. PHYSICAL EXAM: VITAL SIGNS: Reviewed CONSTITUTIONAL: Well developed and in no acute distress. EYES: Conjuctivae without sclera icterus. Extraocular movements grossly intact. HEAD, EARS, NOSE, THROAT: Moist buccal mucosa. Head is atraumatic, normocephalic. No nasal drainage. Tracheostomy site intact. RESPIRATORY: Non-labored respirations and equal bilateral excursions. CARDIOVASCULAR: Palpable 2+ radial pulses. ABDOMEN: Gastrostomy tube intact. MUSCULOSKELETAL: No gross deformity of the lower extremities noted. No clubbing. No cyanosis. SKIN: Good skin turgor. Well perfused. NEUROLOGIC: Cranial nerves II through XII grossly intact. No focal or lateralizing signs. PSYCH: Sedated. CLINICAL LABS: Reviewed. WBC normal at 8700. STUDIES: CT head report confirms chronic cerebrovascular enforced bilaterally. No acute events. ASSESSMENT: 1. Coronavirus pneumonia with complications 2. Status post tracheostomy and gastrostomy 3. Adequate protein intake. 4. Altered mental status due to metabolic encephalopathy PLAN: 1. Tube feeds per dietitian. 2. Vent management per intensive care team. Objective - Vital Signs Vital signs: Vital Signs Temp 98 F 09/26/21 08:00 Pulse 103 H 09/26/21 11:00 Resp 31 H 09/26/21 11:00 BP 164/84 09/26/21 11:00 Pulse Ox 94 L 09/26/21 11:00 Intake & Output 09/25/21 09/26/21 09/26/21 18:59 06:59 18:59 Intake Total 1148 1660 880 Output Total 1275 1085 500 Balance -127 575 380 Weight 59.8 kg 59.6 kg Intake: IV 630 819 452 .9NS 20 100 130 40 Pressure bag 30 39 12 Sodium Chloride 0.45% 1, 500 650 200 000 ml @ 50 mls/hr IV . Q20H [facility] Rx#:[id number] levETIRAcetam IV 1,500 mg 200 In Saline 1 100ml.bag @ 400 mls/hr IVPB Q12HR [facility] Rx#:[id number] Intake, IV Titration 100 200 Amount Anidulafungin 100 mg In 100 Sodium Chloride 0.9% 100 ml @ 84 mls/hr IVPB DAILY @1700 [facility] Rx#:[id number] Levofloxacin 500Mg-D5w 200 Pmx 500 mg In Dextrose/ Water 1 100ml.bag @ 100 mls/hr IVPB Q24H [facility] Rx#: [id number] Tube Feeding 458 741 228 Other 60 Output: Urine 1275 1085 500 Other: Voiding Method Indwelling Catheter Indwelling Catheter Indwelling Catheter # Bowel Movements 1 ABP, PAP, CO, CI - Last Documented Arterial Blood Pressure 76/50 - Labs CBC & Chem 7: 09/26/21 04:00 09/26/21 04:00 Labs: Abnormal Lab Results - Last 24 Hours (Table) 09/25/21 09/25/21 09/25/21 Range/Units 12:16 13:53 17:45 RBC (3.80-5.40) m/uL Hgb (11.4-16.0) gm/dL Hct (34.0-46.0) % MCV (80.0-100.0) fL ABG pH (7.35-7.45) ABG pO2 (83-108) mmHg ABG HCO3 (21-25) mmol/L ABG Total CO2 (19-24) mmol/L ABG O2 Saturation (94-97) % Carbon Dioxide (22-30) mmol/L BUN (7-17) mg/dL Creatinine (0.52-1.04) mg/dL Glucose (74-99) mg/dL POC Glucose (mg/dL) 200 H 151 H 159 H (75-99) mg/dL 09/25/21 09/26/21 09/26/21 Range/Units 23:45 04:00 04:00 RBC 2.73 L (3.80-5.40) m/uL Hgb 8.8 L (11.4-16.0) gm/dL Hct 27.6 L (34.0-46.0) % MCV 100.9 H (80.0-100.0) fL ABG pH (7.35-7.45) ABG pO2 (83-108) mmHg ABG HCO3 (21-25) mmol/L ABG Total CO2 (19-24) mmol/L ABG O2 Saturation (94-97) % Carbon Dioxide 34 H (22-30) mmol/L BUN 22 H (7-17) mg/dL Creatinine 0.38 L (0.52-1.04) mg/dL Glucose 142 H (74-99) mg/dL POC Glucose (mg/dL) 127 H (75-99) mg/dL 09/26/21 Range/Units 06:00 RBC (3.80-5.40) m/uL Hgb (11.4-16.0) gm/dL Hct (34.0-46.0) % MCV (80.0-100.0) fL ABG pH 7.52 H (7.35-7.45) ABG pO2 111 H (83-108) mmHg ABG HCO3 34 H (21-25) mmol/L ABG Total CO2 36 H (19-24) mmol/L ABG O2 Saturation 98.6 H (94-97) % Carbon Dioxide (22-30) mmol/L BUN (7-17) mg/dL Creatinine (0.52-1.04) mg/dL Glucose (74-99) mg/dL POC Glucose (mg/dL) (75-99) mg/dL
[2021-09-26] MEDS: ANIDULAFUNGIN 100 MG in SODIUM CHLORIDE 0.9% 100 ML IVPB SCH (15:40)
[2021-09-26 18:43] LABS: Glucose,Whole Blood 137 mg/dL (75-99)
[2021-09-26 23:33] LABS: Glucose,Whole Blood 112 mg/dL (75-99)
[2021-09-27] MEDS: INSULIN ASPART (NovoLOG) 100 UNIT/ML VIAL SQ SCH ×4 (01:57→18:41)
[2021-09-27 05:32] LABS: ABG HCO3 31 mmol/L (21-25); ABG PCO2 40 mmHg (35-45); ABG PO2 82 mmHg (83-108); Allen Test Performed? yes
[2021-09-27 05:33] LABS: ABG TCO2 32 mmol/L (19-24)
[2021-09-27 05:44] LABS: Glucose,Whole Blood 132 mg/dL (75-99)
--- NOTE | 2021-09-27 07:00 | XR ---
EXAMINATION TYPE: XR chest 1V portable DATE OF EXAM: 09/27/2021 COMPARISON: 09/26/2021 HISTORY: Shortness of breath TECHNIQUE: Single frontal view of the chest is obtained. FINDINGS: No change in the tracheostomy tube or single lead cardiac pacemaker. Heart size is normal and there is no pulmonary vascular congestion or interstitial edema. No consolid ative infiltrates are seen. Improved delineation of the left hemidiaphragm likely reflecting decrease in small pleural fluid or a telectasis. There is no pneumothorax. The osseous structures are intact. IMPRESSION: Allowing for differences in technique there appears to be held improvement in the opacit y in obscuring the left hemidiaphragm on the prior study. This most likely represents a decrease in a small pleural effusion or mild left lower lobe atelectasis.
[2021-09-27 08:39] LABS: Basophils % (A) 0 %; Eosinophils # (A) 0.1 k/uL (0-0.7); Eosinophils % (A) 1 %; HGB 9.5 gm/dL (11.4-16.0); Hypochromasia Slight; Lymphocytes % (A) 12 %; MCH 32.3 pg (25.0-35.0); MCHC 31.5 g/dL (31.0-37.0); MCV 102.4 fL (80.0-100.0); Macrocytosis Slight; Mean Platelet Volume 8.9; Monocytes # (A) 0.4 k/uL (0-1.0); Monocytes % (A) 5 %; Neutrophils # (A) 6.7 k/uL (1.3-7.7); Neutrophils % (A) 81 %; Platelet Count 356 k/uL (150-450); RBC 2.93 m/uL (3.80-5.40); RDW 14.8 % (11.5-15.5); WBC 8.3 k/uL (3.8-10.6)
[2021-09-27 08:50] LABS: African American GFR (CKD) >90 (>60 ml/min/1.73 sqM); Anion Gap 4 mmol/L; Blood Urea Nitrogen 22 mg/dL (7-17); Calcium 8.8 mg/dL (8.4-10.2); Carbon Dioxide 31 mmol/L (22-30); Chloride 103 mmol/L (98-107); Glucose 130 mg/dL (74-99); Non-African American GFR(CKD) >90 (>60 ml/min/1.73 sqM); Sodium 138 mmol/L (137-145)
[2021-09-27] MEDS: CHLORHEXIDINE GLUCONATE 15 ML CUP MUCOUS MEM SCH ×2 (08:59→21:12)
[2021-09-27] MEDS: DEXAMETHASONE SOD PHOSPHATE 10 MG/ML 1 ML VIAL IVP SCH (09:00)
[2021-09-27] MEDS: AMIODARONE 200 MG TAB PO SCH (09:00)
[2021-09-27] MEDS: PANTOPRAZOLE 40 MG/10 ML VIAL IV SCH (09:00)
[2021-09-27] MEDS: ENOXAPARIN 40 MG/0.4 ML SYRINGE SQ SCH (09:00)
[2021-09-27] MEDS: CHOLECALCIFEROL 125 MCG (5000 IU) TABLET PO SCH (09:00)
[2021-09-27] MEDS: carBAMazepine 200 MG TAB PO SCH ×3 (09:00→21:13)
[2021-09-27] MEDS: QUEtiapine 25 MG TAB PO SCH ×2 (09:01→21:13)
[2021-09-27] MEDS: levETIRAcetam IV 1,500 MG in SALINE 1 100ML.BAG IVPB SCH ×2 (10:08→21:13)
[2021-09-27] MEDS: LEVOFLOXACIN 500MG-D5W PMX 500 MG in DEXTROSE/WATER 1 100ML.BAG IVPB SCH (10:52)
[2021-09-27 11:44] LABS: Glucose,Whole Blood 156 mg/dL (75-99)
--- NOTE | 2021-09-27 13:21 | P.PN ---
Subjective Progress Note Date: 09/27/21 Principal diagnosis: Respiratory failure. Reevaluated today on 09/18/21, patient remains in the ICU, intubated and mechanically ventilated. Patient is not making any significant neurological improvement. She has been off sedation for few days, yesterday we started the patient only on Precedex, and that's mostly to keep her synchronous with the ventilator. Again her mental status is basically about the same, and she is not showing much improvement. She opens eyes slightly to deep painful stimuli, but no purposeful movement and no responses to verbal stimuli. She is on assist control rate of 32 tidal volume 325 FiO2 was 50% and PEEP was 8 however I cut down her FiO2 to 45%. Patient is receiving enteral feeding, vital AF at 34 mL per hour. ABG today showed a pO2 of 107 pCO2 44 pH of 7.46. Basic metabolic profile is normal WBC count is 7.6 hemoglobin is 9.5. No significant metabolic abnormality to explain her encephalopathy at this point. Patient is still being followed by neurology on the case. Patient is still being treated for coronary virus infection, and UTI on admission secondary to E. coli. 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 No acute process was noted. Patient remains on seizure medications as per neurology including Keppra and Tegretol. EEG showed slowing/moderate degree of slowing suggestive of generalized cerebral dysfunction. This is seen with toxic metabolic encephalopathy. Reevaluated today on 09/19/21, patient remains in the ICU, intubated and mechanically ventilated, she is on assist control rate of 32 tidal volume of 325 FiO2 45% and PEEP of 8. Patient had to be placed on propofol yesterday at 50 mcg/kg/m, she is on IV fluid at 50 mL per hour. ABG showed a pO2 of 78 pCO2 of 47 pH of 7.44. Chest x-ray is basically about, no change. WBC count is 9.2 hemoglobin is 10.3. Electrolytes are normal. Again the patient had to be placed back on propofol because she was getting agitated, restless, and not syn chronous with the ventilator yesterday. Remains on propofol today, and patient is not responding to any stimuli. Hence I'm keeping her on propofol, I believe the patient will eventually require tracheostomy and PEG tube placement unless CODE STATUS is changed to comfort care. Chest x-ray is basically showing no significant abnormalities. She does have mild pulmonary vascular congestion. Reevaluated today on 09/20/21, patient remains in the ICU, intubated and mechanically ventilated. She is on assist control rate of 32 tidal volume 325 FiO2 is 45%, PEEP is at 8. Patient is back on propofol, intermittently has been receiving Dilaudid, patient becomes at times agitated, and asynchronous with the ventilator, early in the week, I was able to hold sedation for a number of days, however the patient remained unresponsive to verbal stimuli, and apparently she had significant toxic metabolic encephalopathy. CT of the brain was nondiagnostic. Patient was seen by neurology on consultation, and still believe that this is a occipital metabolic encephalopathy picture. Patient is on propofol now at 50 mcg/kg/m, not requiring any other sedatives or narcotics. Patient has been feeding/enteral feeding vital AF at 34 mL per hour. ABG today showed a pO2 of 101 pCO2 47 pH of 7.44. Chest x-ray continues to show retrocardiac density likely atelectasis, otherwise no significant findings on the chest x-ray Progress note dated 09/21/2021. This is a 51-year-old female, who was admitted to the hospital on September 10. She came in with mental status changes, sepsis, and hypernatremia. She came to the intensive care unit on September 10, and was intubated for respiratory failure on 09/11/2021. The patient did test positive for coronavirus. She remains on mechanical ventilator. The patient is on the volume assist control mode, rate 32, tidal volume 325, FiO2 45%, and PEEP of 8. Blood gases show pO2 of 91, pCO2 49, and pH is 7.45. The patient's getting half-normal saline at 50 mL an hour, propofol at 50 mcg/kg/m, and vital AF at 34 mL an hour, which is goal. White count 10.2, hemoglobin 9.7, hematocrit 30.4, and platelet count was normal. Sodium 139, potassium 3.5, chlorides 104, CO2 32, anion gap 3, BUN 34, and creatinine 0.65. Microbiologic studies show evidence of Escherichia coli in the urine from September 10, and presumptive staph aureus in the sputum from August 30 0. The chest x-ray shows left lower lobe atelectasis and/or infiltrates. The patient is currently on antifungals, and aztreonam. The infectious disease doctor is currently on the case. Progress note dated 09/22/2021. 51-year-old female who was admitted to the hospital on 09/10/2021. She came in with mental status changes, sepsis, and hypernatremia. She came to the intensive care unit on September 10, and was intubated for respiratory failure on 09/11/2021. She did test positive for coronavirus. She remains on the mechanical ventilator. The plan is for a tracheostomy and PEG tube placement today by one of the surgeons. The patient also had a right radial arterial line placed by our team. Currently, she is on the volume assist control mode, rate 32, tidal volume 325, FiO2 45%, PEEP of 8. Arterial blood gases show pO2 of 88, pCO2 46, and a pH is 7.48. The patient is on propofol at 40 mcg/kg/m, saline at 20 mL an hour, half-normal saline at 50 mL an hour, and vital, at 46 mL an hour, which is goal. Obviously, tube feeds on hold for anticipated surgery today. White count 9.3, hemoglobin 8.8, hematocrit 27.3, and platelet count 269,000. Sodium 139, potassium 3.4, chlorides 104, CO2 33, anion gap 2, BUN 26, and creatinine 0.54. AST 500, ALT 166. An ultrasound the right upper quadrant will be ordered. Chest x-ray shows persistent left lower lobe atelectasis and/or inf iltrate. Progress note dated 09/23/2021. This is a 51-year-old female, again seen in room 254. She's now been in the hospital for 13 days. She was admitted on 09/10/2021. She came in with mental status changes, and sepsis. She came to the intensive care unit on September 10, and was intubated respiratory failure on 09/11/2021. She did test positive for coronavirus. She remains on the mechanical ventilator. The patient was to have a tracheostomy and PEG tube placement performed. It was to be done yesterday but for some reason did not take place. She remains on the volume assist control, rate 32, tidal volume 325, FiO2 45%, and PEEP of 8. Blood gases show pO2 80, pCO2 39, pH is 7.48. The patient's getting saline at 20 mL an hour, half-normal saline at 50 mL an hour, and tube feeds are currently on hold. White count 10, hemoglobin 9.3, hematocrit 29.2, and platelet count 341,000. Sodium 139, potassium 3.6, chlorides 106, CO2 27, anion gap 6, BUN 23, and creatinine 0.59. Albumin is 2.4. Microbiology from September 10, shows a urine that was positive for an E. coli, and a sputum from September 17, it is positive for Staphylococcus aureus. The patient is currently on vancomycin and Eraxis. Progress note dated 09/24/2021. 51-year-old female, again seen in room 254. The patient underwent tracheostomy and PEG tube placement yesterday, on September 23. The patient is now been in the hospital for 14 days. The patient was admitted on 09/10/2021. She did test positive for coronavirus. The patient was intubated on 09/11/2021, for respiratory failure. Currently, she is on volume assist control, rate 32, tidal volume 325, FiO2 40%, and PEEP of 8. Arterial blood gases show pO2 of 79, pCO2 39, pH is 7.45. The patient's getting half-normal saline at 50 mL an hour. She is on propofol at 40 mcg/kg/m. Tube feedings are still on hold. She's getting an antifungal, as well as Levaquin. Labs include a white count 9.1, hemoglobin 9.5, hematocrit 29.5 and platelet count which is normal. Sodium 133, potassium 3.4, chlorides 101, CO2 26, anion gap 6, BUN 19, and creatinine 0.53. AST is 229, and ALTs 159. Microbiologic studies are positive for a urine sample from September 10, for E. coli, and methicillin sensitive staph aureus in the sputum from September 17. Chest x-ray shows patchy bibasilar and bilateral infiltrates. Progress note dated 09/25/2021. 51-year-old female again seen in room 254. She underwent tracheostomy and PEG tube placement on September 23. The patient has been in the hospital now for 15 days. She remains on the ventilator. She is on the volume assist control mode, rate 32, tidal volume 325, FiO2 40%, PEEP of 8. Blood gases show pO2 of 95, pCO2 51, and pH is 7.44. The patient's getting half-normal saline at 50 mL an hour, and currently, propofol is off. She is also on vital 1.2 at 46 mL an hour, which is goal. She remains on Levaquin for a sputum positive for methicillin sensitive staph aureus. Also, the patient is on an antifungal as per infectious diseases. Because of her poor mental status, we will repeat a computed tomography scan of the brain with contrast. Her hoping to be able to get this patient to a long-term acute care facility or specialized nursing facility. White count 9.9, hemoglobin 9, hematocrit 26.8 and platelet count 333,000. Sodium 137, potassium 3.9, chlorides 102, CO2 31, anion gap 4, BUN 18, creatinine 0.53. Chest x-ray shows a tracheostomy tube in the midline. There is diffuse bilateral infiltrates, with worsening in the retrocardiac area. Progress note dated 09/26/2021. This is a 51-year-old female again seen in room 254. She underwent tracheostomy and PEG tube placement on September 23. She's now been in the hospital for 16 days. She remains on the ventilator. The patient was admitted on 09/10/2021. She did test positive for coronavirus. The patient was intubated on 09/11/2021, for respiratory failure. She remains on the ventilator. She is on the volume assist control mode, rate 32, tidal volume 325, FiO2 40%, to be reduced down to 35%, and PEEP of 8. Blood gases show pO2 of 111, pCO2 42, and a pH is 7.52. The patient is receiving saline at 20 mL an hour, half-normal saline at 50 mL an hour, and vital AF at 57 mL an hour, which is goal. The patient remains on Levaquin and Eraxis. The patient's chest x-ray is unchanged. Recent repeat brain CT was negative. White count 8.7, hemoglobin 8.8, hematocrit 27.6, and platelet count 330,000. Sodium 138, potassium 3.6, chlorides 102, CO2 34, anion gap 2, BUN 22, creatinine 0.38. Progress note dated 09/27/2021. 51-year-old female, again seen in room 254. The patient underwent tracheostomy and PEG tube placement, on 09/23/2021. She's now been in the hospital for 17 days. She remains on the ventilator. She was initially admitted back on 09/10/2021. She did test positive for coronavirus. She was intubated on 09/11/2021, for worsening respiratory failure. She remains on the mechanical ventilator. The patient is on the volume assist control mode, rate 32, tidal volume 325, FiO2 35%, and PEEP of 8. Blood gases show pO2 of 82, pCO2 40, and pH is 7.49. She's getting saline at 20 mL an hour, half-normal saline at 50 mL an hour, and vital AF at 57 and hour, which is goal. We are going to DC her Decadron. She been on it since the . White count 8.3, hemoglobin 9.5, hematocrit 30, and platelet count 356,000. Sodium 138, potassium 4, chlorides 103, CO2 31, anion gap 4, BUN 22, creatinine 0.45. Microbiology shows a staph aureus from September 17, and the sputum. It's a methicillin sensitive staph aureus. The patient remains on Eraxis and Levaquin. Chest x-ray is essentially unchanged. Objective - Vital Signs Vital signs: Vital Signs Temp 99.8 F H 09/27/21 12:00 Pulse 117 H 09/27/21 13:00 Resp 34 H 09/27/21 13:00 BP 119/80 09/27/21 13:00 Pulse Ox 97 09/27/21 13:00 Intake & Output 09/26/21 09/27/21 09/27/21 18:59 06:59 18:59 Intake Total 2540 1440 920 Output Total 2475 1270 911 Balance 65 170 9 Weight 60 kg Intake: IV 1256 756 425 .9NS 20 120 120 60 Pressure bag 36 36 15 Sodium Chloride 0.45% 1, 600 600 250 000 ml @ 50 mls/hr IV . Q20H [facility] Rx#:[id number] levETIRAcetam IV 1,500 mg 500 100 In Saline 1 100ml.bag @ 400 mls/hr IVPB Q12HR [facility] Rx#:[id number] Intake, IV Titration 600 100 Amount Anidulafungin 100 mg In 100 Sodium Chloride 0.9% 100 ml @ 84 mls/hr IVPB DAILY @1700 [facility] Rx#:[id number] Levofloxacin 500Mg-D5w 500 100 Pmx 500 mg In Dextrose/ Water 1 100ml.bag @ 100 mls/hr IVPB Q24H [facility] Rx#: [id number] Tube Feeding 684 684 285 Other 110 Output: Urine 2475 1270 910 Stool 1 Other: Voiding Method Indwelling Catheter Indwelling Catheter Indwelling Catheter # Bowel Movements 1 1 1 ABP, PAP, CO, CI - Last Documented Arterial Blood Pressure 103/60 - Exam No acute distress, currently off propofol, with a midline tracheostomy. HEENT examination is grossly unremarkable. Neck supple. Full range of motion. No adenopathy thyromegaly or neck vein distention. Midline tracheostomy is noted. Cardiovascular examination reveals regular rhythm rate. S1-S2 normal. No S3 or S4. No discernible murmur noted. Heart rate 117 bpm. Heart sounds are distant. Lungs reveal bilateral expiratory rhonchi and wheezes. No crackles. Breath sounds are equal bilaterally. Saturations are 97%. Abdomen soft, without bowel sounds. No masses. PEG tube is noted. Extremities are intact. No cyanosis or clubbing. Trace edema is noted. Skin is without rash or lesion. Neurologic examination reveals a very poorly responsive patient, off of all sedation. - Labs CBC & Chem 7: 09/27/21 08:00 09/27/21 08:00 Labs: Abnormal Lab Results - Last 24 Hours (Table) 09/26/21 09/26/21 09/27/21 Range/Units 18:42 23:32 05:23 RBC (3.80-5.40) m/uL Hgb (11.4-16.0) gm/dL Hct (34.0-46.0) % MCV (80.0-100.0) fL ABG pH 7.50 H (7.35-7.45) ABG pO2 82 L (83-108) mmHg ABG HCO3 31 H (21-25) mmol/L ABG Total CO2 32 H (19-24) mmol/L Carbon Dioxide (22-30) mmol/L BUN (7-17) mg/dL Creatinine (0.52-1.04) mg/dL Glucose (74-99) mg/dL POC Glucose (mg/dL) 137 H 112 H (75-99) mg/dL 09/27/21 09/27/21 09/27/21 Range/Units 05:43 08:00 08:00 RBC 2.93 L (3.80-5.40) m/uL Hgb 9.5 L (11.4-16.0) gm/dL Hct 30.0 L (34.0-46.0) % MCV 102.4 H (80.0-100.0) fL ABG pH (7.35-7.45) ABG pO2 (83-108) mmHg ABG HCO3 (21-25) mmol/L ABG Total CO2 (19-24) mmol/L Carbon Dioxide 31 H (22-30) mmol/L BUN 22 H (7-17) mg/dL Creatinine 0.45 L (0.52-1.04) mg/dL Glucose 130 H (74-99) mg/dL POC Glucose (mg/dL) 132 H (75-99) mg/dL 09/27/21 Range/Units 11:32 RBC (3.80-5.40) m/uL Hgb (11.4-16.0) gm/dL Hct (34.0-46.0) % MCV (80.0-100.0) fL ABG pH (7.35-7.45) ABG pO2 (83-108) mmHg ABG HCO3 (21-25) mmol/L ABG Total CO2 (19-24) mmol/L Carbon Dioxide (22-30) mmol/L BUN (7-17) mg/dL Creatinine (0.52-1.04) mg/dL Glucose (74-99) mg/dL POC Glucose (mg/dL) 156 H (75-99) mg/dL Assessment and Plan Assessment: Acute hypoxemic respiratory failure secondary to coronavirus associated pneumonia, status post intubation and mechanical ventilation on 09/11/2021. Status post tracheostomy and PEG tube placement on 09/23/2021. Acute mental status changes, secondary to toxic/metabolic encephalopathy. Methicillin sensitive staph aureus pneumonia, left lower lobe. Dehydration, on admission, resolved. History of seizure disorder. Prior history of pulmonary embolism. Paroxysmal atrial fibrillation. Cardiomyopathy with ejection fraction of 30-35%. Status post pacemaker implantation. 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 Hypothyroidism. CAD. History of CVA in 2007. History of recurrent E. coli urinary tract infections. History of psoriasis. History of sacral/coccygeal decubitus ulcer. Plan: Plan dated 09/21/2021. Because of the patient's overall poor status, and the fact that she still is a full code, surgery will be consulted for possible tracheostomy and PEG tube placement. We will continue to follow make recommendations where appropriate. Again, prognosis is very poor. She remains on mechanical ventilator. She remains on appropriate antibiotics. Infectious diseases is following. We will continue to follow make recommendations where appropriate. Plan dated 09/22/2021. The patient is going to hopefully have a tracheostomy and PEG tube placement today. The patient remains on propofol at 40 mcg/kg/m. We did replace the arterial line. The previous arterial line was poorly functional. She had a right radial arterial line placed today by our team. A previous urine culture from September 10 showed Escherichia coli. Sputum from September 17 showed Radha, and presumptive Staphylococcus aureus. The patient remains on an antifungal, and vancomycin as per infectious diseases. Mariam follow and make recommendations where appropriate. Prognosis is certainly guarded. Plan dated 09/23/2021. The patient had methicillin sensitive staph aureus in the sputum and is currently on vancomycin. That can be changed to something other than vancomycin. The patient should have a tracheostomy and PEG tube placement today. It was to be done yesterday. The patient is currently off all sedation. Tube feedings on hold. Oxygenation and ventilation are excellent. We will continue to follow make recommendations where appropriate. Overall prognosis remains very guarded. Most recent brain CT shows old infarcts, with nothing acute and no major change. Plan dated 09/24/2021. The patient underwent tracheostomy and PEG tube placement yesterday, 09/23/2021. She remains on the mechanical ventilator. Labs, x-rays, and medications are all reviewed. The staph. in the sputum, was methicillin sensitive. Hence, vancomycin was discontinued, and she was started on Levaquin. She remains on the antifungal. We will continue to follow make recommendations where appropriate. We'll attempt to wean her off the propofol. Additional recommendations and suggestions are coming. Prognosis is guarded. Plan dated 09/25/2021. We'll attempt another CAT scan of the brain with contrast, because of the patient's poor mental status. Two prior CT scans did not show anything acute. The patient remains on Levaquin, and Eraxis. The patient remains off of all. We will continue to follow make recommendations where appropriate. Overall prognosis remains guarded. Plan dated 09/26/2021. Repeat brain CT with contrast, was negative for anything acute. The patient's mental status remains poor. The patient is currently off all sedatives. The patient remains on antibiotic and antifungal as above. The sputum was positive for methicillin sensitive staph aureus. Fungal cultures are currently negative. The patient's chest x-ray is unchanged. The FiO2 was reduced on the 35%. Labs, x-rays, and medications are all reviewed. We will continue to follow and make recommendations where appropriate. Prognosis is certainly guarded. Plan dated 09/27/2021. The patient's repeat brain CT with contrast, was negative for anything acute. The patient's overall mental status remains very poor. The patient will have a daily interruption of sedation, and a spontaneous breathing trial today. We will DC the Decadron, as the patient has been on it since September 12. The patient is currently on Levaquin for a methicillin sensitive staph aureus that was discovered in the sputum. He also remains on the antifungal, Eraxis. We will continue to follow make recommendations where appropriate. The patient's labs, x-rays, and medications are all reviewed. Prognosis is guarded. Possible discharge to a long-term acute care facility, or a specialized nursing facility. Time with Patient: Greater than 30
--- NOTE | 2021-09-27 14:53 | P.PN ---
Subjective Progress Note Date: 09/27/21 CHIEF COMPLAINT: Coronavirus pneumonia HISTORY OF PRESENT ILLNESS: The patient is a 51-year-old female status post tracheostomy and gastrostomy placement 09/23/2021. No new issues overnight. Patient on full mechanical ventilation. ROS: No fevers or chills. No new chest pain. PHYSICAL EXAM: VITAL SIGNS: Reviewed CONSTITUTIONAL: Well developed and in no acute distress. EYES: Conjuctivae without sclera icterus. Extraocular movements grossly intact. HEAD, EARS, NOSE, THROAT: Moist buccal mucosa. Head is atraumatic, normocephalic. No nasal drainage. Tracheostomy site intact. RESPIRATORY: Non-labored respirations and equal bilateral excursions. CARDIOVASCULAR: Palpable 2+ radial pulses. ABDOMEN: Gastrostomy tube intact. MUSCULOSKELETAL: No gross deformity of the lower extremities noted. No clubbing. No cyanosis. SKIN: Good skin turgor. Well perfused. NEUROLOGIC: Cranial nerves II through XII grossly intact. No focal or lateralizing signs. PSYCH: Sedated. CLINICAL LABS: Reviewed. WBC normal today. ASSESSMENT: 1. Coronavirus pneumonia with complications 2. Status post tracheostomy and gastrostomy 3. Adequate protein intake. 4. Altered mental status due to metabolic encephalopathy PLAN: 1. Continue supportive care for pneumonia 2. Continue ventilatory management per purchase order checker Objective - Vital Signs Vital signs: Vital Signs Temp 99.8 F H 09/27/21 12:00 Pulse 110 H 09/27/21 14:00 Resp 37 H 09/27/21 14:00 BP 101/67 09/27/21 14:00 Pulse Ox 97 09/27/21 14:00 Intake & Output 09/26/21 09/27/21 09/27/21 18:59 06:59 18:59 Intake Total 2540 1440 1180 Output Total 2475 1270 1256 Balance 65 170 -76 Weight 60 kg Intake: IV 1256 756 571 .9NS 20 120 120 100 Pressure bag 36 36 21 Sodium Chloride 0.45% 1, 600 600 350 000 ml @ 50 mls/hr IV . Q20H [facility] Rx#:[id number] levETIRAcetam IV 1,500 mg 500 100 In Saline 1 100ml.bag @ 400 mls/hr IVPB Q12HR [facility] Rx#:[id number] Intake, IV Titration 600 100 Amount Anidulafungin 100 mg In 100 Sodium Chloride 0.9% 100 ml @ 84 mls/hr IVPB DAILY @1700 [facility] Rx#:[id number] Levofloxacin 500Mg-D5w 500 100 Pmx 500 mg In Dextrose/ Water 1 100ml.bag @ 100 mls/hr IVPB Q24H [facility] Rx#: [id number] Tube Feeding 684 684 399 Other 110 Output: Urine 2475 1270 1255 Stool 1 Other: Voiding Method Indwelling Catheter Indwelling Catheter Indwelling Catheter # Bowel Movements 1 1 1 ABP, PAP, CO, CI - Last Documented Arterial Blood Pressure 102/62 - Labs CBC & Chem 7: 09/27/21 08:00 09/27/21 08:00 Labs: Abnormal Lab Results - Last 24 Hours (Table) 09/26/21 09/26/21 09/27/21 Range/Units 18:42 23:32 05:23 RBC (3.80-5.40) m/uL Hgb (11.4-16.0) gm/dL Hct (34.0-46.0) % MCV (80.0-100.0) fL ABG pH 7.50 H (7.35-7.45) ABG pO2 82 L (83-108) mmHg ABG HCO3 31 H (21-25) mmol/L ABG Total CO2 32 H (19-24) mmol/L Carbon Dioxide (22-30) mmol/L BUN (7-17) mg/dL Creatinine (0.52-1.04) mg/dL Glucose (74-99) mg/dL POC Glucose (mg/dL) 137 H 112 H (75-99) mg/dL 09/27/21 09/27/21 09/27/21 Range/Units 05:43 08:00 08:00 RBC 2.93 L (3.80-5.40) m/uL Hgb 9.5 L (11.4-16.0) gm/dL Hct 30.0 L (34.0-46.0) % MCV 102.4 H (80.0-100.0) fL ABG pH (7.35-7.45) ABG pO2 (83-108) mmHg ABG HCO3 (21-25) mmol/L ABG Total CO2 (19-24) mmol/L Carbon Dioxide 31 H (22-30) mmol/L BUN 22 H (7-17) mg/dL Creatinine 0.45 L (0.52-1.04) mg/dL Glucose 130 H (74-99) mg/dL POC Glucose (mg/dL) 132 H (75-99) mg/dL 09/27/21 Range/Units 11:32 RBC (3.80-5.40) m/uL Hgb (11.4-16.0) gm/dL Hct (34.0-46.0) % MCV (80.0-100.0) fL ABG pH (7.35-7.45) ABG pO2 (83-108) mmHg ABG HCO3 (21-25) mmol/L ABG Total CO2 (19-24) mmol/L Carbon Dioxide (22-30) mmol/L BUN (7-17) mg/dL Creatinine (0.52-1.04) mg/dL Glucose (74-99) mg/dL POC Glucose (mg/dL) 156 H (75-99) mg/dL
[2021-09-27] MEDS: CLEVIDIPINE BUTYRATE 25 MG in EMPTY BAG 1 BAG IV SCH (15:38)
--- NOTE | 2021-09-27 16:09 | P.PN ---
Subjective Progress Note Date: 09/26/21 Principal diagnosis: Pneumonia pressure ulcer and multiple antibiotic allergies Patient is a 51-year-old female presenting to the hospital on September 10 for mental status changes patient did have a evidence of COVID-19 infection, with respiratory failure requiring intubation also with E. coli UTI and the patient did have multiple antibiotic allergies. The patient is status post tracheostomy and PEG tube placement on 09/23/2021 On today's evaluation that is 09/26/2021, patient continues to be afebrile, the patient is hemodynamically stable not requiring pressor support, the patient FiO2 is down to 35 %, no significant purulent secretions through the the ET or diarrhea has been reported by the nursing staff Objective - Vital Signs Vital signs: Vital Signs Temp 97.8 F 09/26/21 20:00 Pulse 123 H 09/26/21 21:00 Resp 35 H 09/26/21 21:00 BP 166/100 09/26/21 21:00 Pulse Ox 94 L 09/26/21 21:00 Intake & Output 09/26/21 09/26/21 09/27/21 06:59 18:59 06:59 Intake Total 1660 2540 240 Output Total 1085 2475 235 Balance 575 65 5 Weight 59.6 kg Intake: IV 819 1256 126 .9NS 20 130 120 20 Pressure bag 39 36 6 Sodium Chloride 0.45% 1, 650 600 100 000 ml @ 50 mls/hr IV . Q20H ADD[facility] Rx#:[id number] levETIRAcetam IV 1,500 mg 500 In Saline 1 100ml.bag @ 400 mls/hr IVPB Q12HR ADDIE Rx#:[id number] Intake, IV Titration 100 600 Amount Anidulafungin 100 mg In 100 100 Sodium Chloride 0.9% 100 ml @ 84 mls/hr IVPB DAILY @1700 ADDIE Rx#:[id number] Levofloxacin 500Mg-D5w 500 Pmx 500 mg In Dextrose/ Water 1 100ml.bag @ 100 mls/hr IVPB Q24H ADDIE Rx#: [id number] Tube Feeding 741 684 114 Output: Urine 1085 2475 235 Other: Voiding Method Indwelling Catheter Indwelling Catheter Indwelling Catheter # Bowel Movements 1 ABP, PAP, CO, CI - Last Documented Arterial Blood Pressure 152/79 - Exam GENERAL DESCRIPTION: Middle-aged male intubated on the vent, no distress. No tachypnea or accessory muscle of respiration use. LUNGS: Unlabored breathing. Decreased breath sound at the base. No wheeze or crackle. HEART: S1, S2, regular rate and rhythm. No loud murmur ABDOMEN: Soft, no tenderness , guarding or rigidity, no organomegaly EXTREMITIES: No edema of feet. Patient did have unstageable pressure ulcer to the sacral area and upper back with black esher no surrounding redness - Labs CBC & Chem 7: 09/27/21 08:00 09/27/21 08:00 Labs: Abnormal Lab Results - Last 24 Hours (Table) 09/25/21 09/26/21 09/26/21 Range/Units 23:45 04:00 04:00 RBC 2.73 L (3.80-5.40) m/uL Hgb 8.8 L (11.4-16.0) gm/dL Hct 27.6 L (34.0-46.0) % MCV 100.9 H (80.0-100.0) fL ABG pH (7.35-7.45) ABG pO2 (83-108) mmHg ABG HCO3 (21-25) mmol/L ABG Total CO2 (19-24) mmol/L ABG O2 Saturation (94-97) % Carbon Dioxide 34 H (22-30) mmol/L BUN 22 H (7-17) mg/dL Creatinine 0.38 L (0.52-1.04) mg/dL Glucose 142 H (74-99) mg/dL POC Glucose (mg/dL) 127 H (75-99) mg/dL 09/26/21 09/26/21 09/26/21 Range/Units 06:00 12:42 18:42 RBC (3.80-5.40) m/uL Hgb (11.4-16.0) gm/dL Hct (34.0-46.0) % MCV (80.0-100.0) fL ABG pH 7.52 H (7.35-7.45) ABG pO2 111 H (83-108) mmHg ABG HCO3 34 H (21-25) mmol/L ABG Total CO2 36 H (19-24) mmol/L ABG O2 Saturation 98.6 H (94-97) % Carbon Dioxide (22-30) mmol/L BUN (7-17) mg/dL Creatinine (0.52-1.04) mg/dL Glucose (74-99) mg/dL POC Glucose (mg/dL) 174 H 137 H (75-99) mg/dL Assessment and Plan (1) Pneumonia Current Visit: Yes Status: Acute Code(s): J18.9 - PNEUMONIA, UNSPECIFIED ORGANISM SNOMED Code(s): 991884071 (2) Allergy to multiple antibiotics Current Visit: Yes Status: Acute Code(s): Z88.1 - ALLERGY STATUS TO OTHER ANTIBIOTIC AGENTS SNOMED Code(s): 291705794 (3) COVID-19 Current Visit: Yes Status: Acute Code(s): U07.1 - COVID-19 SNOMED Code(s): 805471506 Plan: 1-Patient with acute respiratory failure which is multifactorial in this patient who did have a covid19 pneumonia and a concern for possible secondary bacterial pneumonia patient With a new fever blood and sputum cultures were done and blood culture has been negative sputum showing Radha was more likely colonizer however underlying oropharyngeal candidiasis is not excluded, as well as MSSA patient did have a penicillin and cephalosporin ALLERGY, patient is on Levaquin per pulmonary and Eraxis to continue and monitor clinical course closely 2-patient with unstageable sacral pressure ulcer as well as unstageable pressure ulcer to the upper back area, may benefit from surgical debridement or local wound care with the matthewoney followed by moist dressing to keep the area off the pressure
[2021-09-27] MEDS: ANIDULAFUNGIN 100 MG in SODIUM CHLORIDE 0.9% 100 ML IVPB SCH (16:10)
--- NOTE | 2021-09-27 16:12 | P.PN ---
Subjective Progress Note Date: 09/27/21 Principal diagnosis: Pneumonia pressure ulcer and multiple antibiotic allergies Patient is a 51-year-old female presenting to the hospital on September 10 for mental status changes patient did have a evidence of COVID-19 infection, with respiratory failure requiring intubation also with E. coli UTI and the patient did have multiple antibiotic allergies. The patient is status post tracheostomy and PEG tube placement on 09/23/2021 On today's evaluation that is 09/27/2021, patient did have resolution of 99.8F, the patient is hemodynamically stable not requiring pressor support, the patient FiO2 is stable at 35 %, no significant purulent secretions through the the ET, diarrhea or any changes has been reported by the nursing staff Objective - Vital Signs Vital signs: Vital Signs Temp 99.8 F H 09/27/21 12:00 Pulse 118 H 09/27/21 15:00 Resp 39 H 09/27/21 15:00 BP 111/73 09/27/21 15:00 Pulse Ox 97 09/27/21 15:00 Intake & Output 09/26/21 09/27/21 09/27/21 18:59 06:59 18:59 Intake Total 2540 1440 1340 Output Total 2475 1270 1381 Balance 65 170 -41 Weight 60 kg Intake: IV 1256 756 644 .9NS 20 120 120 120 Pressure bag 36 36 24 Sodium Chloride 0.45% 1, 600 600 400 000 ml @ 50 mls/hr IV . Q20H [facility] Rx#:[id number] levETIRAcetam IV 1,500 mg 500 100 In Saline 1 100ml.bag @ 400 mls/hr IVPB Q12HR [facility] Rx#:[id number] Intake, IV Titration 600 100 Amount Anidulafungin 100 mg In 100 Sodium Chloride 0.9% 100 ml @ 84 mls/hr IVPB DAILY @1700 ADDIE Rx#:[id number] Levofloxacin 500Mg-D5w 500 100 Pmx 500 mg In Dextrose/ Water 1 100ml.bag @ 100 mls/hr IVPB Q24H ADDIE Rx#: [id number] Tube Feeding 684 684 456 Other 140 Output: Urine 2475 1270 1380 Stool 1 Other: Voiding Method Indwelling Catheter Indwelling Catheter Indwelling Catheter # Bowel Movements 1 1 1 ABP, PAP, CO, CI - Last Documented Arterial Blood Pressure 115/66 - Exam GENERAL DESCRIPTION: Middle-aged male intubated on the vent, no distress. No tachypnea or accessory muscle of respiration use. LUNGS: Unlabored breathing. Decreased breath sound at the base. No wheeze or crackle. HEART: S1, S2, regular rate and rhythm. No loud murmur ABDOMEN: Soft, no tenderness , guarding or rigidity, no organomegaly EXTREMITIES: No edema of feet. - Labs CBC & Chem 7: 09/27/21 08:00 09/27/21 08:00 Labs: Abnormal Lab Results - Last 24 Hours (Table) 09/26/21 09/26/21 09/27/21 Range/Units 18:42 23:32 05:23 RBC (3.80-5.40) m/uL Hgb (11.4-16.0) gm/dL Hct (34.0-46.0) % MCV (80.0-100.0) fL ABG pH 7.50 H (7.35-7.45) ABG pO2 82 L (83-108) mmHg ABG HCO3 31 H (21-25) mmol/L ABG Total CO2 32 H (19-24) mmol/L Carbon Dioxide (22-30) mmol/L BUN (7-17) mg/dL Creatinine (0.52-1.04) mg/dL Glucose (74-99) mg/dL POC Glucose (mg/dL) 137 H 112 H (75-99) mg/dL 09/27/21 09/27/21 09/27/21 Range/Units 05:43 08:00 08:00 RBC 2.93 L (3.80-5.40) m/uL Hgb 9.5 L (11.4-16.0) gm/dL Hct 30.0 L (34.0-46.0) % MCV 102.4 H (80.0-100.0) fL ABG pH (7.35-7.45) ABG pO2 (83-108) mmHg ABG HCO3 (21-25) mmol/L ABG Total CO2 (19-24) mmol/L Carbon Dioxide 31 H (22-30) mmol/L BUN 22 H (7-17) mg/dL Creatinine 0.45 L (0.52-1.04) mg/dL Glucose 130 H (74-99) mg/dL POC Glucose (mg/dL) 132 H (75-99) mg/dL 09/27/21 Range/Units 11:32 RBC (3.80-5.40) m/uL Hgb (11.4-16.0) gm/dL Hct (34.0-46.0) % MCV (80.0-100.0) fL ABG pH (7.35-7.45) ABG pO2 (83-108) mmHg ABG HCO3 (21-25) mmol/L ABG Total CO2 (19-24) mmol/L Carbon Dioxide (22-30) mmol/L BUN (7-17) mg/dL Creatinine (0.52-1.04) mg/dL Glucose (74-99) mg/dL POC Glucose (mg/dL) 156 H (75-99) mg/dL Assessment and Plan (1) Pneumonia Current Visit: Yes Status: Acute Code(s): J18.9 - PNEUMONIA, UNSPECIFIED ORGANISM SNOMED Code(s): 036797140 (2) Allergy to multiple antibiotics Current Visit: Yes Status: Acute Code(s): Z88.1 - ALLERGY STATUS TO OTHER ANTIBIOTIC AGENTS SNOMED Code(s): 613988690 (3) COVID-19 Current Visit: Yes Status: Acute Code(s): U07.1 - COVID-19 SNOMED Code(s): 878396382 Plan: 1-Patient with acute respiratory failure which is multifactorial in this patient who did have a covid19 pneumonia and a concern for possible secondary bacterial pneumonia patient With a new fever blood and sputum cultures were done and blood culture has been negative sputum showing Radha and MSSA. patient did have a penicillin and cephalosporin ALLERGY, patient is on Levaquin and Eraxis to continue and monitor clinical course closely 2-patient with unstageable sacral pressure ulcer as well as unstageable pressure ulcer to the upper back area, local wound care with the matthewoney followed by moist dressing to keep the area off the pressure
[2021-09-27] MEDS: SODIUM CHLORIDE 0.45% 1,000 ML IV SCH (17:37)
[2021-09-27 17:48] LABS: Glucose,Whole Blood 141 mg/dL (75-99)
[2021-09-27] MEDS: HYDROmorphone 1 MG/ML 1 ML SYRINGE IVP PRN (21:12)
--- NOTE | 2021-09-27 22:26 | P.PN ---
Subjective Progress Note Date: 09/26/21 This is a pleasant 51 years old female with past medical history of Coronary Artery Disease, Heart Failure, CVA/TIA, Pulmonary Embolus (PE), Seizure Disorder, Last seizure 2009, CVA 2007 with L sided weakness arm and leg and has L foot drop, TIA 2018, cardiomyopathy, R PE and pneumothorax/pneumonia following leg fracture in 1994, gestational diabetes with all pregnancies , bilateral glaucoma with surgery, psoriasis in the past, UTIs. She is a status post Pacemaker, history of Bilateral eye surgery for glaucoma, Anxiety, Depression, Current every day smoker Patient presents because of altered mental status. Information was limited from the patient. It was obtained from the chart and medical staff. Also as per family patient was able to go to the bathroom, was more lethargic and tired over the last day. While in the emergency room focal mild seizure is noticed On admission patient had and fever of 101. She is tachypneic at 26-40, tachycardic 110-140, also she is hypoxic saturating 72% on room air Labs showing WBC of 10.5, hemoglobin of 16.3, platelet count of 197. INR 1.7. Sodium 164, creatinine 1.7, lactic acid elevated 4.6. Liver enzymes elevated with AST 202 and ALT 81. Bilirubin is normal at 1.3. Urine analysis is highly suspicious of infection Urine drug screen is negative Cash versus positive Chest x-ray showing left perihilar and left lower lobe area of infiltrate and small effusion correlates for pneumonia CT of the brain without contrast showing no intracranial hemorrhage, evidence of remote ischemic change. However there is vague low attenuation near the left thalamus and left cerebral peduncle. Acute ischemia in the differential diagnosis. Recommend stat MRI of brain with MRSA [place] of [place] as clinically warranted. In the emergency room patient was started on aztreonam and IV vancomycin, Keppra and heparin drip 09/11/2021 Patient today was still in the ICU, she was very weak and obtunded, she will wake up to certain stabilized and moans, she does not follow commands she cannot, gait she moved both extremities symmetrically. R on she had collapse of her left lung cancer and she has to be intubated and repeat chest x-ray showing better. A of the left lung. She is tachypneic with a breathing rate 22, no more fever since yesterday. Her sodium improved down to 144 and she was started on normal saline, creatinine 1.1, Ejection fraction showed 30-35% which is slice worsened from 06/2021 where it was 35-40% She remains on dexamethasone, IV vancomycin and clindamycin, heparin drip, Keppra and normal saline at 75 mL/h 09/12/2021 Patient with respiratory failures and she was intubated and placed on mechanical ventilation with pulmonary/critical care team following her mostly. There is no more seizure-like activity noticed. She still tachypneic with a breathing rate of 32 blood pressure 100/70, she is needing FiO2 of 80% and PEEP of 20. She has no more fevers since admission. Urine culture is growing gram-negative bacilli. Sodium is 146, WBCs is increased at 16.5 K. PH showing acidosis with 7.1 and elevated pCO2 at 83. Chest x-ray showing left sided opacities with near full. A of the left lung. Patient kept on antibiotics in the form of clindamycin and Levaquin and fluconazole. Also she remains on dexamethasone, and so a heparin to Lovenox. Also continued on seizure medication 1500 mg twice a day and IV fluids per pulmonary team. Neurology team on the case 09/13/2021 Patient remains intubated and sedated with pulmonary/critical care team following her closely. Her PEEP is lower today to 18. She remains on FiO2 of 50%. She is tachypneic at 32 about blood pressure is controlled. Her inflammatory markers are increased to LDH of 1009 and CRP of 25.1. Bicarb is elevated at 31 WBC is 17.7, sodium improved to 142. Creatinine improved to 0.6. Chest x-ray showed improving left lung infiltrate. PH is improved slightly 7.2 with pCO2 is slightly better at 79. Urine culture is growing E. coli which is sensitive to the antibiotics. Currently patient is covered with clindamycin, Levaquin and fluconazole. Also she is on dexamethasone 6 mg, Keppra 1500 mg and half-normal saline at 50 mL per hour Anticoagulation switch from heparin drip and to Lovenox 09/14/2021 Patient still intubated and sedated on mechanical ventilation with pulmonary/critical care team following her closely and just her vent setting. Today her FiO2 of 55%, and she is tachypneic at 33 breath per minute. Labs showing stable findings with sodium 141, creatinine 0.8, liver enzymes slightly elevated, LDH slightly down at 797 and CRP 2-3.2. Same leukocytosis at 14.7. Her pH is 7.2 and carbon dioxide is 82. D-dimer mildly elevated at 0.9, just x-ray showing bilateral infiltrate with no significant change from prior. She remains on the same antibiotic of clindamycin, Levaquin, dexamethasone, Keppra 1500 mg and half normal saline at 50 mL/h 09/15/2021 Patient in the ICU intubated and sedated, with pulmonary/critical care team following closely. FiO2 still 50%, hemodynamically showing both staple blood pressure 101/40, patient is tachypneic more than 30 per minutes. PEEP is lower. wbc of 11.3, hemoglobin 9.4, sodium 140, creatinine 0.8. chest x-ray: mild worsening infiltrate in the left lobe. patient continued with the same treatment of clindamycin, levaquin, dexamethasone, keppra and she received 1 l of normal saline today. 09/16/2021 Patient is seen and evaluated and follow-up continues to be closely monitored in the ICU. 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 Patient continues on mechanical vent with an FiO2 of 50% and PEEP is 10. Weaning is being continued and PEEP is being titrated down to 8. Patient continues with sedation holidays and very minimal propofol and patient is now off Nimbex and very minimal stimulus noted. Patient response to painful stimulus minimally. Plan is for possible CT of the brain repeat this afternoon. Patient also being closely monitored for continued seizures of which she does have a past medical history of. Patient is also Covid positive and infectious disease is following and patient is maintained on clindamycin along with Levaquin. Chest x-ray today shows correlate for left lower lobe pneumonia versus atelectasis with possible associated effusion. 09/17/2021 Patient is seen in follow-up this morning closely monitored in the ICU. Neurology also following and patient is maintained on IV Keppra. Patient also continues on IV antibiotics in the form of aztreonam and clindamycin with infectious disease following. Patient urine culture showing E. coli. Chest x- ray today shows chronic emphysematous changes with left basilar acute infiltrate and/or atelectasis and likely small left pleural effusion all redemonstrated with no significant change from previous day. Neurology following And okay to resume anticoagulant as there is no evidence of new intracranial process or hemorrhage. Patient is off sedation and continues to be unresponsive. 09/18/2021 Patient is evaluated again this morning and continues to be in the ICU on mechanical vent and being closely monitored. FiO2 is at 45% and PEEP is 8. Patient continues to be off sedation with no response for over 24 hours. Neurology following as well and have discussed overall prognosis with family and family discussing with other family members about CODE STATUS and treatment plan moving forward. Infectious disease also following and patient is maintained on IV Levaquin along with clindamycin and aztreonam and will continue. Urine cultures finalized showing E. coli and sputum culture preliminary is pending at this time. 09/19/2020 Patient evaluated today in the ICU on mechanical ventilation. Fi02 at 45% with a PEEP of 8. Propofol infusing, Nimbex and Levophed are currently on hold. Pre cedex discontinued. There has been no response, and mental status is not improving. Still no response to verbal stimuli. Patient is being followed closely by neurology for this and is on IV keppra and tegretol. EEG consistant with toxic metabolic encepholapthy. Repeat chest xray today shows similar opacities given patient rotation. Stable support tubes. Mild pulmonary vascular congestion correlate with serum BNP. Blood cultures negative, pending finalized, sputum negative so far. Labs reviewed today: WBC 9.2, hgb 10.3, sodium 138, potassium 3.8, BUN 33, Cr 0.76, glucose in the 110's, calcium 7.9, AST 250, ALT 78, Albumin 2.3. Vitals reviewed: Temp 97.4, HR 126, RR 44, Blood pressure 113/80, 96% oxygen saturation on mechanical ventilation. 09/20/2021 Patient evaluated in ICU on mechanical ventilation with an Fi02 of 45%, PEEP of 12. Chest xray today shows left lower lobe atelectasis versus pneumonia with similar findings as previous. BNP yesterday 12,500, however xray reviewed and do es not appear to be showing heart failure. She is in negative fluid balance. Status was addressed with family by neurology who is awaiting a phone call back. White count 12.8, RBC 3.5, sodium 137 potassium 3.8, chloride 101, CO2 33, BUN 35, creatinine 0.68, blood sugars in the 120s, AST 424, ALT 115, alk phos 63. Running temps today 100.8, heart rate 123, respiratory rate 36, blood pressure 95/65, oxygen saturation of 93-94%. Blood pressures are on the softer side 88/55. Current infusions include propofol which has been resumed as patient has not shown any signs of neurological improvement while on a propofol break. 09/21/2021 Patient is seen in follow up today and continues to be on mechanical vent with an FI02 of 45% with a peep of 8 and multiple medical consultations following. Chest xray similar from previous with copd and continued focal basilar left lower lobe retrocardiac consolidation or atelectasis. Patient is on propofol and general surgery has been consulted for peg and trach placement. Plan for surgery is tomorrow. 09/22/2021 Patient is seen and evaluated in follow-up this morning continues on mechanical ventilation with a PEEP of 8 and FiO2 is 45%. General surgery following an plan is for PEG and trach placement today due to prolonged mechanical ventilation and no improvements or weaning from the vent. Patient continues on tube feeding along with Lovenox which is currently on hold for the surgical procedure. Patient's chest x-ray today shows diffuse bilateral infiltrates that are stable with no pneumothorax or pleural effusion noted. Patient also had gallbladder ultrasound secondary to elevated liver functions and shows hepatomegaly otherwise unremarkable. Patient is continued on antifungal's along with vancomycin and infectious disease following closely. Sputum cultures preliminary showing Radha glabrata and Staphylococcus aureus and most recent blood cultures have been negative. 09/23/2021 Patient is seen in follow-up this morning and patient was unable to receive PEG and trach with general surgery following yesterday and plan is for today. Patient continues on mechanical vent and FiO2 is 45% with a PEEP of 8. Lovenox and tube feeding currently on hold. Chest xray reviewed and no acute changes from yesterday. Continues to be unresponsive. Prognosis remains poor. 09/24/2021 Patient is seen this morning status post PEG and trach placement and is resuming tube feedings with general surgery following. Patient continues on mechanical vent with an FiO2 of 40% and PEEP is 8. Per nursing staff working on weaning sedation and assessing neuro status. Continues with being obtunded and no purposeful movements noted. Chest xray shows COPD with improvement in previous left pleural effusion with mild patchy infiltrates/retrocardiac atelectasis noted. 09/25/2021 Patient is seen and evaluated today continues to be in the ICU on mechanical ventilation and continues on sedation with attempts at weaning. FI02 is 40% and peep of 8. Multiple medical consultations following. Plan is for repeat ct of the brain sometime this afternoon. Per nursing staff patient is tolerating tube feeds. Chest xray today shows suboptimal study due to positioning and unable to exclude some worsening atelectasis or infiltrate. 09/26/2021 Patient is in the MICU. Status post tracheostomy and PEG tube placement on 09/23/2021 remains on mechanical ventilator. FiO2 40% and PEEP of 8. Patient remains unresponsive and does not follow simple commands. Repeat CT done on 09/25/2021 showed findings consistent with cerebrovascular infarction bilaterally. May be indicative of otitis media bilaterally. No acute brain abnormality evident. Patient is being continued antibiotics in the form of Levaquin and Eraxis per bacterial pneumonia and sputum cultures growing Radha and staph aureus. Laboratory data showed WBC 8.7 hemoglobin 8.8 and platelets 330 Sodium 138 potassium 3.6 chloride 102 bicarb is 34 BUN 2020 creatinine 0.38 and calcium 8.4 Patient is being continued antibiotics and antiepileptic medications. Pulmonary, neurology and ID is on board. Review of systems: Unable to obtain as patient continues to be on mechanical ventilation and sedated Current medications reviewed. Objective - Vital Signs Vital signs: Vital Signs Temp 98.6 F 09/26/21 12:00 Pulse 101 H 09/26/21 14:00 Resp 28 H 09/26/21 14:00 BP 160/117 09/26/21 14:00 Pulse Ox 94 L 09/26/21 14:00 Intake & Output 09/25/21 09/26/21 09/26/21 18:59 06:59 18:59 Intake Total 1148 1660 1840 Output Total 1275 1085 1300 Balance -127 575 540 Weight 59.8 kg 59.6 kg Intake: IV 630 819 941 .9NS 20 100 130 70 Pressure bag 30 39 21 Sodium Chloride 0.45% 1, 500 650 350 000 ml @ 50 mls/hr IV . Q20H [facility] Rx#:[id number] levETIRAcetam IV 1,500 mg 500 In Saline 1 100ml.bag @ 400 mls/hr IVPB Q12HR [facility] Rx#:[id number] Intake, IV Titration 100 500 Amount Anidulafungin 100 mg In 100 Sodium Chloride 0.9% 100 ml @ 84 mls/hr IVPB DAILY @1700 [facility] Rx#:[id number] Levofloxacin 500Mg-D5w 500 Pmx 500 mg In Dextrose/ Water 1 100ml.bag @ 100 mls/hr IVPB Q24H [facility] Rx#: [id number] Tube Feeding 458 741 399 Other 60 Output: Urine 1275 1085 1300 Other: Voiding Method Indwelling Catheter Indwelling Catheter Indwelling Catheter # Bowel Movements 1 1 ABP, PAP, CO, CI - Last Documented Arterial Blood Pressure 72/63 - Exam Physical exam: GENERAL: The patient is intubated and sedated, FiO2 is 40% and PEEP is 8 HEENT: Pupils are round and equally reacting to light. EOMI. No scleral icterus. No conjunctival pallor. Normocephalic, atraumatic. No pharyngeal erythema. No thyromegaly. CARDIOVASCULAR: S1 and S2 present. No murmurs, rubs, or gallops. PULMONARY: diminished breath sounds bilaterally with coarse rhonchi noted ABDOMEN: Soft, nontender, nondistended, normoactive bowel sounds. No palpable organomegaly. MUSCULOSKELETAL: No joint swelling or deformity. EXTREMITIES: No cyanosis, clubbing, or pedal edema. NEUROLOGICAL: unresponsive, remains sedated SKIN: No rashes. no petechiae. - Labs CBC & Chem 7: 09/27/21 08:00 09/27/21 08:00 Labs: Abnormal Lab Results - Last 24 Hours (Table) 09/25/21 09/25/21 09/26/21 Range/Units 17:45 23:45 04:00 RBC 2.73 L (3.80-5.40) m/uL Hgb 8.8 L (11.4-16.0) gm/dL Hct 27.6 L (34.0-46.0) % MCV 100.9 H (80.0-100.0) fL ABG pH (7.35-7.45) ABG pO2 (83-108) mmHg ABG HCO3 (21-25) mmol/L ABG Total CO2 (19-24) mmol/L ABG O2 Saturation (94-97) % Carbon Dioxide (22-30) mmol/L BUN (7-17) mg/dL Creatinine (0.52-1.04) mg/dL Glucose (74-99) mg/dL POC Glucose (mg/dL) 159 H 127 H (75-99) mg/dL 09/26/21 09/26/21 09/26/21 Range/Units 04:00 06:00 12:42 RBC (3.80-5.40) m/uL Hgb (11.4-16.0) gm/dL Hct (34.0-46.0) % MCV (80.0-100.0) fL ABG pH 7.52 H (7.35-7.45) ABG pO2 111 H (83-108) mmHg ABG HCO3 34 H (21-25) mmol/L ABG Total CO2 36 H (19-24) mmol/L ABG O2 Saturation 98.6 H (94-97) % Carbon Dioxide 34 H (22-30) mmol/L BUN 22 H (7-17) mg/dL Creatinine 0.38 L (0.52-1.04) mg/dL Glucose 142 H (74-99) mg/dL POC Glucose (mg/dL) 174 H (75-99) mg/dL Assessment and Plan Assessment: Assessment: Altered mental status could be metabolic/toxic encephalopathy, ruled out other intracranial lesions, and possibly secondary to seizure status post peg tube and tracheostomy placement Left lower lobe pneumonia, rule out aspiration pneumonia. Sputum culture is growing staph aureus and Radha. Acute urinary tract infection, present on admission with culture showing E. coli Sepsis secondary to UTI and pneumonia Breakthrough seizure Bilateral interstitial Covid 19 pneumonia Acute hypoxic respiratory failure secondary to COVID-19 pneumonia requiring mechanical ventilation Increased inflammatory markers elevated troponin, most likely type II ischemia. Rule out primary cardiac causes Cardiomyopathy with most recent EF of 30-35% Hypernatremia, improved Acute kidney injury, improved Mild elevated liver enzymes History of coronary artery disease History of pulmonary embolism History of seizure disorder, last seizure was in 2009 as per documents History 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 left foot drop History of glaucoma status post surgery Status post permanent pacemaker Nicotine dependence GI prophylaxis DVT prophylaxis Full code Plan: This is a pleasant 51 years old female who presented with altered mental status, pneumonia, UTI, possible stroke although most likely old infarcts noted on CT, seizure and positive for covid pneumonia patient was intubated and continues on mechanical ventilation with a FiO2 of 40% and PEEP is 8. General surgery following and performed PEG and trach placement recently and resumed feeds and tolerating. Lovenox resumed as well. Continue with Keppra and neurology following and patient has been weaning off sedation and continues to be unresponsive. CT of the brain shows old right hemisphere infarct without change old left posterior frontal lobe cortical infarct without change and no acute abnormality. Patient is currently back on Propofol. Repeat CT of the brain ordered this afternoon and pending. pulmonary and infectious disease following, continue the broad-spectrum antibiotics in the form of levaquin along with antifungals Continue with vitamin and zinc supplements along with Lovenox Cardiology team evaluated the patient for elevated troponin, patient does not have A. fib per taste tester Overall Prognosis remains poor and extremely guarded Time with Patient: Greater than 30
--- NOTE | 2021-09-27 22:30 | P.PN ---
Subjective Progress Note Date: 09/27/21 This is a pleasant 51 years old female with past medical history of Coronary Artery Disease, Heart Failure, CVA/TIA, Pulmonary Embolus (PE), Seizure Disorder, Last seizure 2009, CVA 2007 with L sided weakness arm and leg and has L foot drop, TIA 2018, cardiomyopathy, R PE and pneumothorax/pneumonia following leg fracture in 1994, gestational diabetes with all pregnancies , bilateral glaucoma with surgery, psoriasis in the past, UTIs. She is a status post Pacemaker, history of Bilateral eye surgery for glaucoma, Anxiety, Depression, Current every day smoker Patient presents because of altered mental status. Information was limited from the patient. It was obtained from the chart and medical staff. Also as per family patient was able to go to the bathroom, was more lethargic and tired over the last day. While in the emergency room focal mild seizure is noticed On admission patient had and fever of 101. She is tachypneic at 26-40, tachycardic 110-140, also she is hypoxic saturating 72% on room air Labs showing WBC of 10.5, hemoglobin of 16.3, platelet count of 197. INR 1.7. Sodium 164, creatinine 1.7, lactic acid elevated 4.6. Liver enzymes elevated with AST 202 and ALT 81. Bilirubin is normal at 1.3. Urine analysis is highly suspicious of infection Urine drug screen is negative Cash versus positive Chest x-ray showing left perihilar and left lower lobe area of infiltrate and small effusion correlates for pneumonia CT of the brain without contrast showing no intracranial hemorrhage, evidence of remote ischemic change. However there is vague low attenuation near the left thalamus and left cerebral peduncle. Acute ischemia in the differential diagnosis. Recommend stat MRI of brain with MRSA kake of [place] as clinically warranted. In the emergency room patient was started on aztreonam and IV vancomycin, Keppra and heparin drip 09/11/2021 Patient today was still in the ICU, she was very weak and obtunded, she will wake up to certain stabilized and moans, she does not follow commands she cannot, gait she moved both extremities symmetrically. R on she had collapse of her left lung cancer and she has to be intubated and repeat chest x-ray showing better. A of the left lung. She is tachypneic with a breathing rate 22, no more fever since yesterday. Her sodium improved down to 144 and she was started on normal saline, creatinine 1.1, Ejection fraction showed 30-35% which is slice worsened from 06/2021 where it was 35-40% She remains on dexamethasone, IV vancomycin and clindamycin, heparin drip, Keppra and normal saline at 75 mL/h 09/12/2021 Patient with respiratory failures and she was intubated and placed on mechanical ventilation with pulmonary/critical care team following her mostly. There is no more seizure-like activity noticed. She still tachypneic with a breathing rate of 32 blood pressure 100/70, she is needing FiO2 of 80% and PEEP of 20. She has no more fevers since admission. Urine culture is growing gram-negative bacilli. Sodium is 146, WBCs is increased at 16.5 K. PH showing acidosis with 7.1 and elevated pCO2 at 83. Chest x-ray showing left sided opacities with near full. A of the left lung. Patient kept on antibiotics in the form of clindamycin and Levaquin and fluconazole. Also she remains on dexamethasone, and so a heparin to Lovenox. Also continued on seizure medication 1500 mg twice a day and IV fluids per pulmonary team. Neurology team on the case 09/13/2021 Patient remains intubated and sedated with pulmonary/critical care team following her closely. Her PEEP is lower today to 18. She remains on FiO2 of 50%. She is tachypneic at 32 about blood pressure is controlled. Her inflammatory markers are increased to LDH of 1009 and CRP of 25.1. Bicarb is elevated at 31 WBC is 17.7, sodium improved to 142. Creatinine improved to 0.6. Chest x-ray showed improving left lung infiltrate. PH is improved slightly 7.2 with pCO2 is slightly better at 79. Urine culture is growing E. coli which is sensitive to the antibiotics. Currently patient is covered with clindamycin, Levaquin and fluconazole. Also she is on dexamethasone 6 mg, Keppra 1500 mg and half-normal saline at 50 mL per hour Anticoagulation switch from heparin drip and to Lovenox 09/14/2021 Patient still intubated and sedated on mechanical ventilation with pulmonary/critical care team following her closely and just her vent setting. Today her FiO2 of 55%, and she is tachypneic at 33 breath per minute. Labs showing stable findings with sodium 141, creatinine 0.8, liver enzymes slightly elevated, LDH slightly down at 797 and CRP 2-3.2. Same leukocytosis at 14.7. Her pH is 7.2 and carbon dioxide is 82. D-dimer mildly elevated at 0.9, just x-ray showing bilateral infiltrate with no significant change from prior. She remains on the same antibiotic of clindamycin, Levaquin, dexamethasone, Keppra 1500 mg and half normal saline at 50 mL/h 09/15/2021 Patient in the ICU intubated and sedated, with pulmonary/critical care team following closely. FiO2 still 50%, hemodynamically showing both staple blood pressure 101/40, patient is tachypneic more than 30 per minutes. PEEP is lower. wbc of 11.3, hemoglobin 9.4, sodium 140, creatinine 0.8. chest x-ray: mild worsening infiltrate in the left lobe. patient continued with the same treatment of clindamycin, levaquin, dexamethasone, keppra and she received 1 l of normal saline today. 09/16/2021 Patient is seen and evaluated and follow-up continues to be closely monitored in the ICU. Multiple medical consultations following including infectious disease, pulmonary belt builder helper, and neurology. Patient continues on mechanical vent with an FiO2 of 50% and PEEP is 10. Weaning is being continued and PEEP is being titrated down to 8. Patient continues with sedation holidays and very minimal propofol and patient is now off Nimbex and very minimal stimulus noted. Patient response to painful stimulus minimally. Plan is for possible CT of the brain repeat this afternoon. Patient also being closely monitored for continued seizures of which she does have a past medical history of. Patient is also Covid positive and infectious disease is following and patient is maintained on clindamycin along with Levaquin. Chest x-ray today shows correlate for left lower lobe pneumonia versus atelectasis with possible associated effusion. 09/17/2021 Patient is seen in follow-up this morning closely monitored in the ICU. Neurology also following and patient is maintained on IV Keppra. Patient also continues on IV antibiotics in the form of aztreonam and clindamycin with infectious disease following. Patient urine culture showing E. coli. Chest x- ray today shows chronic emphysematous changes with left basilar acute infiltrate and/or atelectasis and likely small left pleural effusion all redemonstrated with no significant change from previous day. Neurology following And okay to resume anticoagulant as there is no evidence of new intracranial process or hemorrhage. Patient is off sedation and continues to be unresponsive. 09/18/2021 Patient is evaluated again this morning and continues to be in the ICU on mechanical vent and being closely monitored. FiO2 is at 45% and PEEP is 8. Patient continues to be off sedation with no response for over 24 hours. Neurology following as well and have discussed overall prognosis with family and family discussing with other family members about CODE STATUS and treatment plan moving forward. Infectious disease also following and patient is maintained on IV Levaquin along with clindamycin and aztreonam and will continue. Urine cultures finalized showing E. coli and sputum culture preliminary is pending at this time. 09/19/2020 Patient evaluated today in the ICU on mechanical ventilation. Fi02 at 45% with a PEEP of 8. Propofol infusing, Nimbex and Levophed are currently on hold. Pre cedex discontinued. There has been no response, and mental status is not improving. Still no response to verbal stimuli. Patient is being followed closely by neurology for this and is on IV keppra and tegretol. EEG consistant with toxic metabolic encepholapthy. Repeat chest xray today shows similar opacities given patient rotation. Stable support tubes. Mild pulmonary vascular congestion correlate with serum BNP. Blood cultures negative, pending finalized, sputum negative so far. Labs reviewed today: WBC 9.2, hgb 10.3, sodium 138, potassium 3.8, BUN 33, Cr 0.76, glucose in the 110's, calcium 7.9, AST 250, ALT 78, Albumin 2.3. Vitals reviewed: Temp 97.4, HR 126, RR 44, Blood pressure 113/80, 96% oxygen saturation on mechanical ventilation. 09/20/2021 Patient evaluated in ICU on mechanical ventilation with an Fi02 of 45%, PEEP of 12. Chest xray today shows left lower lobe atelectasis versus pneumonia with similar findings as previous. BNP yesterday 12,500, however xray reviewed and do es not appear to be showing heart failure. She is in negative fluid balance. Status was addressed with family by neurology who is awaiting a phone call back. White count 12.8, RBC 3.5, sodium 137 potassium 3.8, chloride 101, CO2 33, BUN 35, creatinine 0.68, blood sugars in the 120s, AST 424, ALT 115, alk phos 63. Running temps today 100.8, heart rate 123, respiratory rate 36, blood pressure 95/65, oxygen saturation of 93-94%. Blood pressures are on the softer side 88/55. Current infusions include propofol which has been resumed as patient has not shown any signs of neurological improvement while on a propofol break. 09/21/2021 Patient is seen in follow up today and continues to be on mechanical vent with an FI02 of 45% with a peep of 8 and multiple medical consultations following. Chest xray similar from previous with copd and continued focal basilar left lower lobe retrocardiac consolidation or atelectasis. Patient is on propofol and general surgery has been consulted for peg and trach placement. Plan for surgery is tomorrow. 09/22/2021 Patient is seen and evaluated in follow-up this morning continues on mechanical ventilation with a PEEP of 8 and FiO2 is 45%. General surgery following an plan is for PEG and trach placement today due to prolonged mechanical ventilation and no improvements or weaning from the vent. Patient continues on tube feeding along with Lovenox which is currently on hold for the surgical procedure. Patient's chest x-ray today shows diffuse bilateral infiltrates that are stable with no pneumothorax or pleural effusion noted. Patient also had gallbladder ultrasound secondary to elevated liver functions and shows hepatomegaly otherwise unremarkable. Patient is continued on antifungal's along with vancomycin and infectious disease following closely. Sputum cultures preliminary showing Radha glabrata and Staphylococcus aureus and most recent blood cultures have been negative. 09/23/2021 Patient is seen in follow-up this morning and patient was unable to receive PEG and trach with general surgery following yesterday and plan is for today. Patient continues on mechanical vent and FiO2 is 45% with a PEEP of 8. Lovenox and tube feeding currently on hold. Chest xray reviewed and no acute changes from yesterday. Continues to be unresponsive. Prognosis remains poor. 09/24/2021 Patient is seen this morning status post PEG and trach placement and is resuming tube feedings with general surgery following. Patient continues on mechanical vent with an FiO2 of 40% and PEEP is 8. Per nursing staff working on weaning sedation and assessing neuro status. Continues with being obtunded and no purposeful movements noted. Chest xray shows COPD with improvement in previous left pleural effusion with mild patchy infiltrates/retrocardiac atelectasis noted. 09/25/2021 Patient is seen and evaluated today continues to be in the ICU on mechanical ventilation and continues on sedation with attempts at weaning. FI02 is 40% and peep of 8. Multiple medical consultations following. Plan is for repeat ct of the brain sometime this afternoon. Per nursing staff patient is tolerating tube feeds. Chest xray today shows suboptimal study due to positioning and unable to exclude some worsening atelectasis or infiltrate. 09/26/2021 Patient is in the MICU. Status post tracheostomy and PEG tube placement on 09/23/2021 remains on mechanical ventilator. FiO2 40% and PEEP of 8. Patient remains unresponsive and does not follow simple commands. Repeat CT done on 09/25/2021 showed findings consistent with cerebrovascular infarction bilaterally. May be indicative of otitis media bilaterally. No acute brain abnormality evident. Patient is being continued antibiotics in the form of Levaquin and Eraxis per bacterial pneumonia and sputum cultures growing Radha and staph aureus. Laboratory data showed WBC 8.7 hemoglobin 8.8 and platelets 330 Sodium 138 potassium 3.6 chloride 102 bicarb is 34 BUN 2019 creatinine 0.38 and calcium 8.4 Patient is being continued antibiotics and antiepileptic medications. Pulmonary, neurology and ID is on board. 09/27/2019 Patient is in the MICU. Status post tracheostomy and PEG tube placement and mechanical ventilator. Patient is off sedation. Currently on assist control with tidal volume 325 FiO2 35% and PEEP of 8. Patient remains obtunded and does not follow simple commands. Chest x-ray showed improvement in the opacity in the obscuring the left hemidiaphragm on the prior study. Most likely represents decreasing small pleural effusion Laboratory showed WBC 8.3 hemoglobin 9.5 platelets 102 sodium 138 potassium 4.0 chloride 103 bicarb is 31 BUN 2020 creatinine 0.45 calcium 8.8 patient is being current on antibiotics in the form of Levaquin and Eraxis. Decadron has been discontinued. Review of systems: Unable to obtain as patient continues to be on mechanical ventilation and sedated Current medications reviewed. Objective - Vital Signs Vital signs: Vital Signs Temp 99.8 F H 09/27/21 12:00 Pulse 110 H 09/27/21 14:00 Resp 37 H 09/27/21 14:00 BP 101/67 09/27/21 14:00 Pulse Ox 97 09/27/21 14:00 Intake & Output 09/26/21 09/27/21 09/27/21 18:59 06:59 18:59 Intake Total 2540 1440 1180 Output Total 2475 1270 1256 Balance 65 170 -76 Weight 60 kg Intake: IV 1256 756 571 .9NS 20 120 120 100 Pressure bag 36 36 21 Sodium Chloride 0.45% 1, 600 600 350 000 ml @ 50 mls/hr IV . Q20H ADDIE Rx#:[id number] levETIRAcetam IV 1,500 mg 500 100 In Saline 1 100ml.bag @ 400 mls/hr IVPB Q12HR ADDIE Rx#:[id number] Intake, IV Titration 600 100 Amount Anidulafungin 100 mg In 100 Sodium Chloride 0.9% 100 ml @ 84 mls/hr IVPB DAILY @1700 ADDIE Rx#:[id number] Levofloxacin 500Mg-D5w 500 100 Pmx 500 mg In Dextrose/ Water 1 100ml.bag @ 100 mls/hr IVPB Q24H ADDIE Rx#: [id number] Tube Feeding 684 684 399 Other 110 Output: Urine 2475 1270 1255 Stool 1 Other: Voiding Method Indwelling Catheter Indwelling Catheter Indwelling Catheter # Bowel Movements 1 1 1 ABP, PAP, CO, CI - Last Documented Arterial Blood Pressure 102/62 - Exam Physical exam: GENERAL: The patient is intubated and sedated, FiO2 is 40% and PEEP is 8 HEENT: Pupils are round and equally reacting to light. EOMI. No scleral icterus. No conjunctival pallor. Normocephalic, atraumatic. No pharyngeal erythema. No thyromegaly. CARDIOVASCULAR: S1 and S2 present. No murmurs, rubs, or gallops. PULMONARY: diminished breath sounds bilaterally with coarse rhonchi noted ABDOMEN: Soft, nontender, nondistended, normoactive bowel sounds. No palpable organomegaly. MUSCULOSKELETAL: No joint swelling or deformity. EXTREMITIES: No cyanosis, clubbing, or pedal edema. NEUROLOGICAL: unresponsive, remains sedated SKIN: No rashes. no petechiae. - Labs CBC & Chem 7: 09/27/21 08:00 09/27/21 08:00 Labs: Abnormal Lab Results - Last 24 Hours (Table) 0109/26/21 09/27/21 Range/Units 18:42 23:32 05:23 RBC (3.80-5.40) m/uL Hgb (11.4-16.0) gm/dL Hct (34.0-46.0) % MCV (80.0-100.0) fL ABG pH 7.50 H (7.35-7.45) ABG pO2 82 L (83-108) mmHg ABG HCO3 31 H (21-25) mmol/L ABG Total CO2 32 H (19-24) mmol/L Carbon Dioxide (22-30) mmol/L BUN (7-17) mg/dL Creatinine (0.52-1.04) mg/dL Glucose (74-99) mg/dL POC Glucose (mg/dL) 137 H 112 H (75-99) mg/dL 09/27/21 09/27/21 09/27/21 Range/Units 05:43 08:00 08:00 RBC 2.93 L (3.80-5.40) m/uL Hgb 9.5 L (11.4-16.0) gm/dL Hct 30.0 L (34.0-46.0) % MCV 102.4 H (80.0-100.0) fL ABG pH (7.35-7.45) ABG pO2 (83-108) mmHg ABG HCO3 (21-25) mmol/L ABG Total CO2 (19-24) mmol/L Carbon Dioxide 31 H (22-30) mmol/L BUN 22 H (7-17) mg/dL Creatinine 0.45 L (0.52-1.04) mg/dL Glucose 130 H (74-99) mg/dL POC Glucose (mg/dL) 132 H (75-99) mg/dL 09/27/21 Range/Units 11:32 RBC (3.80-5.40) m/uL Hgb (11.4-16.0) gm/dL Hct (34.0-46.0) % MCV (80.0-100.0) fL ABG pH (7.35-7.45) ABG pO2 (83-108) mmHg ABG HCO3 (21-25) mmol/L ABG Total CO2 (19-24) mmol/L Carbon Dioxide (22-30) mmol/L BUN (7-17) mg/dL Creatinine (0.52-1.04) mg/dL Glucose (74-99) mg/dL POC Glucose (mg/dL) 156 H (75-99) mg/dL Assessment and Plan Assessment: Assessment: Altered mental status could be metabolic/toxic encephalopathy, ruled out other intracranial lesions, and possibly secondary to seizure status post peg tube and tracheostomy placement Left lower lobe pneumonia, rule out aspiration pneumonia. Sputum culture is growing staph aureus and Radha. Acute urinary tract infection, present on admission with culture showing E. coli Sepsis secondary to UTI and pneumonia Breakthrough seizure Bilateral interstitial Covid 19 pneumonia Acute hypoxic respiratory failure secondary to COVID-19 pneumonia requiring mechanical ventilation Increased inflammatory markers elevated troponin, most likely type II ischemia. Rule out primary cardiac cau ses Cardiomyopathy with most recent EF of 30-35% Hypernatremia, improved Acute kidney injury, improved Mild elevated liver enzymes History of coronary artery disease History of pulmonary embolism History of seizure disorder, last seizure was in 2009 as per documents History 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 left foot drop History of glaucoma status post surgery Status post permanent pacemaker Nicotine dependence GI prophylaxis DVT prophylaxis Full code Plan: This is a pleasant 51 years old female who presented with altered mental status, pneumonia, UTI, possible stroke although most likely old infarcts noted on CT, seizure and positive for covid pneumonia patient was intubated and continues on mechanical ventilation with a FiO2 of 40% and PEEP is 8. General surgery following and performed PEG and trach placement recently and resumed feeds and tolerating. Lovenox resumed as well. Continue with Keppra and neurology following and patient has been weaning off sedation and continues to be unresponsive. CT of the brain shows old right hemisphere infarct without change old left posterior frontal lobe cortical infarct without change and no acute abnormality. Patient is currently back on Propofol. Repeat CT of the brain ordered this afternoon and pending. pulmonary and infectious disease following, continue the broad-spectrum antibiotics in the form of levaquin along with antifungals Continue with vitamin and zinc supplements along with Lovenox.Decadron has been discontinued. Cardiology team evaluated the patient for elevated troponin, patient does not have A. fib per chief operator hydroformer Overall Prognosis remains poor and extremely guarded. Time with Patient: Greater than 30
[2021-09-27 23:06] LABS: Glucose,Whole Blood 112 mg/dL (75-99)
[2021-09-28] MEDS: INSULIN ASPART (NovoLOG) 100 UNIT/ML VIAL SQ SCH ×4 (00:35→17:48)
[2021-09-28] MEDS: HYDROmorphone 1 MG/ML 1 ML SYRINGE IVP PRN ×3 (03:38→10:36)
[2021-09-28] MEDS: SODIUM CHLORIDE 0.45% 1,000 ML IV SCH (03:39)
[2021-09-28 05:26] LABS: Glucose,Whole Blood 126 mg/dL (75-99)
[2021-09-28 05:33] LABS: Basophils % (A) 0 %; Eosinophils # (A) 0.1 k/uL (0-0.7); Eosinophils % (A) 2 %; HCT 29.4 % (34.0-46.0); HGB 9.2 gm/dL (11.4-16.0); Hypochromasia Slight; Lymphocytes # (A) 1.2 k/uL (1.0-4.8); Lymphocytes % (A) 20 %; MCH 31.9 pg (25.0-35.0); MCHC 31.4 g/dL (31.0-37.0); MCV 101.4 fL (80.0-100.0); Macrocytosis Slight; Mean Platelet Volume 8.4; Monocytes # (A) 0.3 k/uL (0-1.0); Monocytes % (A) 5 %; Neutrophils # (A) 4.2 k/uL (1.3-7.7); Neutrophils % (A) 70 %; Platelet Count 365 k/uL (150-450); RDW 15.1 % (11.5-15.5)
[2021-09-28 05:48] LABS: ALT 163 U/L (4-34); AST 95 U/L (14-36); African American GFR (CKD) >90 (>60 ml/min/1.73 sqM); Albumin 2.7 g/dL (3.5-5.0); Alkaline Phosphatase 69 U/L (38-126); Anion Gap 0 mmol/L; Blood Urea Nitrogen 27 mg/dL (7-17); Calcium 8.5 mg/dL (8.4-10.2); Carbon Dioxide 34 mmol/L (22-30); Chloride 102 mmol/L (98-107); Glucose 123 mg/dL (74-99); Non-African American GFR(CKD) >90 (>60 ml/min/1.73 sqM); Potassium 3.6 mmol/L (3.5-5.1); Sodium 136 mmol/L (137-145); Total Bilirubin 0.5 mg/dL (0.2-1.3); Total Protein 5.8 g/dL (6.3-8.2)
[2021-09-28 05:51] LABS: ABG Base Excess 6.9 mmol/L; ABG HCO3 31 mmol/L (21-25); ABG Oxygen Saturation 93.6 % (94-97); ABG PCO2 46 mmHg (35-45); ABG PH 7.44 (7.35-7.45); ABG PO2 73 mmHg (83-108); ABG TCO2 33 mmol/L (19-24); Allen Test Performed? Yes
--- NOTE | 2021-09-28 06:53 | XR ---
EXAMINATION TYPE: XR chest 1V portable DATE OF EXAM: 09/28/2021 CLINICAL HISTORY: Difficulty breathing progress study. TECHNIQUE: Single AP portable semiupright view of the chest is obtained. COMPARISON: Chest x-ray from one day earlier and older studies. FINDINGS: Stable tracheostomy tube. Cardiac silhouette size is stable and within normal limits with single lead pacemaker/AICD redemonstr ated. Background Chronic emphysematous change with persistent left basilar opacity redemonstrated. Ri ght lung remains clear. Osseous structures are intact. IMPRESSION: Chronic emphysematous change with left basilar acute infiltrate and/or atelectasis and li walter small left pleural effusion are all redemonstrated. No significant change from one day earlier.
--- NOTE | 2021-09-28 07:09 | P.PN ---
Subjective Progress Note Date: 09/28/21 This is a 51-year-old female patient with established coronary arterial pneumonia, prolonged respiratory failure, was currently in the intensive care unit being seen for a follow-up. 09/28/2021, the patient is being seen for a follow-up. She is on a mechanical ventilator. The chest and the tumors are diminished sense and for prolonged respiratory failure. This morning, the patient at the rate of 30 to assist- control mode with a tidal volume of 325, FiO2 of 35% and a PEEP of 8. She has a Bivona tracheostomy tube #8. Note that the patient has been off sedation since 09/24/2021. Neurologically, she is still unresponsive. She is not following any commands. The patient opens up her eyes spontaneously. She grimaces to painful stimulation. She is quite comfortable in a mechanical ventilator. She is hemodynamically stable on no pressors. She is receiving enteral feeding for nutritional support in the form of vital AF at the rate of 57 mL an hour. She is also on half-normal saline today to 50 mL an hour. She has a triple lumen catheter in her right femoral vein. She is also done and arterial line that is nonfunctioning. Her blood work today shows a pH of 7.44 with a pCO2 of 46 and pO2 of 73. White cell count and 6 with a hemoglobin of 9.2 and a platelet count of 364. Sodium is at 136. Normal renal function with a mean of 27 and a creatinine of 0.4. LFTs are slightly abnormal with an AST of 95, ALT of 163, albumin is at 2.7. Chest x-ray was done today and it shows adequate positioning of the Bivona tracheostomy tube which is around 2 cm above the polo. The patient has a defibrillator in place. Patient also has some left lower lobe atelectasis and some limited perihilar pulmonary infiltrates left more than right. Note that her chest x-ray findings have been stable for the past several days. In terms of treatment, the patient is on Lovenox 40 mg subcu for DVT prophylaxis. The patient is on no steroids. Antibiotic coverage includes a combination of Levaquin and Eraxis for presence of Radha glabrata in the sputum. The patient's cardiac rhythm is sinus. The patient is on amiodarone maintenance on milligrams on a daily basis. The patient is still on Keppra 1.5 g every 12 hours. No seizure activity has been noted. The patient is currently off Cleviprex Infusion. Objective - Vital Signs Vital signs: Vital Signs Temp 99.2 F 09/28/21 04:00 Pulse 87 09/28/21 06:00 Resp 26 H 09/28/21 06:00 BP 135/73 09/28/21 06:00 Pulse Ox 95 09/28/21 06:00 Intake & Output 09/27/21 09/27/21 09/28/21 06:59 18:59 06:59 Intake Total 1440 1871 1186 Output Total 1270 1811 1150 Balance 170 60 36 Weight 60 kg 59.4 kg Intake: IV 756 833 667 .9NS 20 120 150 90 Pressure bag 36 33 27 Sodium Chloride 0.45% 1, 600 550 450 000 ml @ 50 mls/hr IV . Q20H [facility] Rx#:[id number] levETIRAcetam IV 1,500 mg 100 100 In Saline 1 100ml.bag @ 400 mls/hr IVPB Q12HR [facility] Rx#:[id number] Intake, IV Titration 226 Amount Anidulafungin 100 mg In 126 Sodium Chloride 0.9% 100 ml @ 84 mls/hr IVPB DAILY @1700 [facility] Rx#:[id number] Levofloxacin 500Mg-D5w 100 Pmx 500 mg In Dextrose/ Water 1 100ml.bag @ 100 mls/hr IVPB Q24H [facility] Rx#: [id number] Tube Feeding 684 627 399 Other 185 120 Output: Urine 1270 1810 1150 Stool 1 Other: Voiding Method Indwelling Catheter Indwelling Catheter Indwelling Catheter # Bowel Movements 1 1 ABP, PAP, CO, CI - Last Documented Arterial Blood Pressure 103/69 - Exam No acute distress, currently off propofol, with a midline tracheostomy. The patient has a #8 bilateral tracheostomy tube. The patient is quite successful mechanical ventilator. No agitation. Opens up his eyes on continuously. I was told that she is following commands on and off although I wasn't able to elicit that. Motor function is extremely weak in all 4 extremities. HEENT examination is grossly unremarkable. Tracheostomy tube is in place. Neck supple. Full range of motion. No adenopathy thyromegaly or neck vein dist ention. Midline tracheostomy is noted. Cardiovascular examination Cardiac exam revealed the PMI to be normally situated and sized. The rhythm was regular and no extrasystoles were noted during several minutes of auscultation. The first and second heart sounds were normal and physiologic splitting of the second heart sound was noted. There were no murmurs, rubs, clicks, or gallops. Lungs reveal bilateral expiratory rhonchi and wheezes. No crackles. Breath sounds are equal bilaterally. Abdomen soft, without bowel sounds. No masses. PEG tube is noted.Abdominal exam revealed normal bowel sounds. The abdomen was soft, non-tender, and without masses, organomegaly, or appreciable enlargement of the abdominal aorta. Extremities are intact. No cyanosis or clubbing. Trace edema is noted. Skin is without rash or lesion. The patient has a DTI pressure wound in her coccyx. Neurologic examination reveals a very poorly responsive patient, off of all sedation. - Labs CBC & Chem 7: 09/28/21 05:17 09/28/21 05:17 Labs: Abnormal Lab Results - Last 24 Hours (Table) 09/27/21 09/27/21 09/27/21 Range/Units 08:00 08:00 11:32 RBC 2.93 L (3.80-5.40) m/uL Hgb 9.5 L (11.4-16.0) gm/dL Hct 30.0 L (34.0-46.0) % MCV 102.4 H (80.0-100.0) fL D-Dimer (<0.60) mg/L FEU ABG pCO2 (35-45) mmHg ABG pO2 (83-108) mmHg ABG HCO3 (21-25) mmol/L ABG Total CO2 (19-24) mmol/L ABG O2 Saturation (94-97) % Sodium (137-145) mmol/L Carbon Dioxide 31 H (22-30) mmol/L BUN 22 H (7-17) mg/dL Creatinine 0.45 L (0.52-1.04) mg/dL Glucose 130 H (74-99) mg/dL POC Glucose (mg/dL) 156 H (75-99) mg/dL AST (14-36) U/L ALT (4-34) U/L Total Protein (6.3-8.2) g/dL Albumin (3.5-5.0) g/dL 09/27/21 09/27/21 09/28/21 Range/Units 17:37 23:06 05:17 RBC 2.90 L (3.80-5.40) m/uL Hgb 9.2 L (11.4-16.0) gm/dL Hct 29.4 L (34.0-46.0) % MCV 101.4 H (80.0-100.0) fL D-Dimer (<0.60) mg/L FEU ABG pCO2 (35-45) mmHg ABG pO2 (83-108) mmHg ABG HCO3 (21-25) mmol/L ABG Total CO2 (19-24) mmol/L ABG O2 Saturation (94-97) % Sodium (137-145) mmol/L Carbon Dioxide (22-30) mmol/L BUN (7-17) mg/dL Creatinine (0.52-1.04) mg/dL Glucose (74-99) mg/dL POC Glucose (mg/dL) 141 H 112 H (75-99) mg/dL AST (14-36) U/L ALT (4-34) U/L Total Protein (6.3-8.2) g/dL Albumin (3.5-5.0) g/dL 09/28/21 09/28/21 09/28/21 Range/Units 05:17 05:17 05:24 RBC (3.80-5.40) m/uL Hgb (11.4-16.0) gm/dL Hct (34.0-46.0) % MCV (80.0-100.0) fL D-Dimer 6.46 H (<0.60) mg/L FEU ABG pCO2 (35-45) mmHg ABG pO2 (83-108) mmHg ABG HCO3 (21-25) mmol/L ABG Total CO2 (19-24) mmol/L ABG O2 Saturation (94-97) % Sodium 136 L (137-145) mmol/L Carbon Dioxide 34 H (22-30) mmol/L BUN 27 H (7-17) mg/dL Creatinine 0.42 L (0.52-1.04) mg/dL Glucose 123 H (74-99) mg/dL POC Glucose (mg/dL) 126 H (75-99) mg/dL AST 95 H (14-36) U/L ALT 163 H (4-34) U/L Total Protein 5.8 L (6.3-8.2) g/dL Albumin 2.7 L (3.5-5.0) g/dL 09/28/21 Range/Units 05:45 RBC (3.80-5.40) m/uL Hgb (11.4-16.0) gm/dL Hct (34.0-46.0) % MCV (80.0-100.0) fL D-Dimer (<0.60) mg/L FEU ABG pCO2 46 H (35-45) mmHg ABG pO2 73 L (83-108) mmHg ABG HCO3 31 H (21-25) mmol/L ABG Total CO2 33 H (19-24) mmol/L ABG O2 Saturation 93.6 L (94-97) % Sodium (137-145) mmol/L Carbon Dioxide (22-30) mmol/L BUN (7-17) mg/dL Creatinine (0.52-1.04) mg/dL Glucose (74-99) mg/dL POC Glucose (mg/dL) (75-99) mg/dL AST (14-36) U/L ALT (4-34) U/L Total Protein (6.3-8.2) g/dL Albumin (3.5-5.0) g/dL Assessment and Plan Plan: Acute hypoxemic respiratory failure secondary to coronavirus associated pneumonia, status post intubation and mechanical ventilation on 09/11/2021. Status post tracheostomy and PEG tube placement on 09/23/2021. Chest x-ray find ings are stable. Blood gases are stable. She is on a PEEP of 8 with an FiO2 of 35%. Tracheostomy tube is in place. Acute mental status changes, secondary to toxic/metabolic encephalopathy. The patient remains off sedation for now Methicillin sensitive staph aureus pneumonia, left lower lobe. The patient is currently on Levaquin Dehydration, on admission, resolved. History of seizure disorder. The patient remains on Keppra Prior history of pulmonary embolism. Paroxysmal atrial fibrillation. Current rhythm is sinus and the patient is on oral amiodarone Cardiomyopathy with ejection fraction of 30-35%. Status post pacemaker implantation. 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 Hypothyroidism. CAD. History of CVA in 2007. History of recurrent E. coli urinary tract infections. History of psoriasis. History of sacral/coccygeal decubitus ulcer. DTI Plan: Continue vent support Drop the PEEP down to 5 cm of water Keep the rest of the ventilator settings unchanged Switch the patient to oral Keppra. Completed the course of Levaquin, a total of 7 days Complete the course of Eraxis, total of 7 days Discontinued arterial line Order a PICC line and remove the triple-lumen catheter Continue wound care Continue Lovenox for DVT prophylaxis Check weaning parameters and assess stability to do some pressure support mode of mechanical ventilation today Consults select specialty for possible transfer to select specialty for further weaning. Critically care evaluation, more than 30 minutes. Time with Patient: Greater than 30
[2021-09-28] MEDS ORDERED: POTASSIUM BICARBONATE/CIT AC 20 MEQ TABLET.EFF NG-TUBE SCH (08:00)
[2021-09-28] MEDS ORDERED: Magnesium Replacement Protocol 1 EACH MISC MISCELLANE PRN (08:12)
[2021-09-28] MEDS: AMIODARONE 200 MG TAB PO SCH (08:22)
[2021-09-28] MEDS: CHOLECALCIFEROL 125 MCG (5000 IU) TABLET PO SCH (08:22)
[2021-09-28] MEDS: carBAMazepine 200 MG TAB PO SCH ×3 (08:23→21:00)
[2021-09-28] MEDS: ENOXAPARIN 40 MG/0.4 ML SYRINGE SQ SCH (08:24)
[2021-09-28] MEDS: QUEtiapine 25 MG TAB PO SCH ×2 (08:24→20:58)
[2021-09-28] MEDS: MAGNESIUM SULFATE-D5W PMX 1 GM in DEXTROSE/WATER 1 100ML.BAG IVPB SCH ×2 (09:01→09:49)
[2021-09-28] MEDS: PANTOPRAZOLE 40 MG/10 ML VIAL IV SCH (09:01)
[2021-09-28] MEDS: levETIRAcetam IV 1,500 MG in SALINE 1 100ML.BAG IVPB SCH ×2 (09:01→20:59)
[2021-09-28] MEDS: CHLORHEXIDINE GLUCONATE 15 ML CUP MUCOUS MEM SCH ×2 (09:02→20:57)
[2021-09-28] MEDS: LEVOFLOXACIN 500MG-D5W PMX 500 MG in DEXTROSE/WATER 1 100ML.BAG IVPB SCH (09:49)
[2021-09-28 11:32] LABS: Glucose,Whole Blood 160 mg/dL (75-99)
[2021-09-28] MEDS ORDERED: LIDOCAINE 1% INJ 10MG/ML (20 ML MDV) ONE (14:32)
[2021-09-28] MEDS ORDERED: LIDOCAINE 1% INJ 10MG/ML (20 ML MDV) SQ ONE (14:55)
--- NOTE | 2021-09-28 15:33 | IR ---
EXAMINATION TYPE: IR cvc insert >=5 years, XR chest 1V portable DATE OF EXAM: 09/28/2021 COMPARISON: NONE HISTORY: Cerebrovascular accident, needs long-term intravenous access for therapy FINDINGS: Maximal barrier technique was utilized. Hand hygiene obtained with soap and water and alco hol-based hand rub. The skin overlying the right basilic vein was localized with ultrasound and noted to be compressible and patent by ultrasound. An ultrasound image was obtained and submitted on kristine ent's chart. Sterile technique utilized with the ultrasound machine. The skin overlying was prepped a nd draped and Lidocaine used for local anesthesia. A skin sharad was made with a scalpel. Access was gained to the vein under direct ultrasound guidance with a 21-gauge needle and a 0.018 inch wire was advanced. Access site was dilated with a peel-away sheath and the catheter tailored to length. Cath eter advanced centrally and a post procedure chest x-ray verified placement with tip at the superior vena cava. Catheter was fixed to the skin and a sterile dressing placed. Hemostasis achieved and th e catheter was aspirated and flushed with sterile saline. The patient remained in stable condition. IMPRESSION: STATUS POST ULTRASOUND GUIDED PICC LINE PLACEMENT, READY FOR USE. THIS PROCEDURE WAS PER FORMED BY THE UNDERSIGNED. AP chest x-ray HISTORY: Line placement Single frontal view of the chest is submitted correlated previous exam on same dated earlier time. There is been interval placement of right-sided PICC line, distal tip is overlying the right Superior vena cava. No other interval change. IMPRESSION: No evident complication status post central venous catheter placement.
[2021-09-28] MEDS: CLEVIDIPINE BUTYRATE 25 MG in EMPTY BAG 1 BAG IV SCH (15:38)
--- NOTE | 2021-09-28 15:58 | P.PN ---
Subjective Progress Note Date: 09/28/21 CHIEF COMPLAINT: COVID-19 pneumonia HISTORY OF PRESENT ILLNESS: Patient remains in the ICU intubated and on mechanical ventilation. Patient is status post tracheostomy and PEG tube placement on 09/23/21. Patient is tolerating tube feedings. Consult placed for select specialty for possible transfer to select specialty for further weaning. PHYSICAL EXAM: VITAL SIGNS: Reviewed. GENERAL:no acute distress. HEENT: Moist buccal mucosa. Head is atraumatic, normocephalic. Tracheostomy site clean dry and intact ABDOMEN: Soft. Nondistended. PEG tube site clean dry and intact NEUROLOGIC: Intubated and sedated ASSESSMENT: 1. Acute hypoxic respiratory failure secondary to COVID-19 pneumonia requiring mechanical ventilation 2. Severe protein calorie malnutrition PLAN: -Continue tube feedings -Continue ICU management -Continue supportive care -Discharge planning and process to select specialty Physician Data Governance Consultant note has been reviewed by physician. Signing provider agrees with the documented findings, assessment, and plan of care. Objective - Vital Signs Vital signs: Vital Signs Temp 99.0 F 09/28/21 12:00 Pulse 108 H 09/28/21 15:00 Resp 32 H 09/28/21 15:00 BP 111/74 09/28/21 15:00 Pulse Ox 97 09/28/21 15:00 Intake & Output 09/27/21 09/28/21 09/28/21 18:59 06:59 18:59 Intake Total 1871 1375 1218 Output Total 1811 1360 705 Balance 60 15 513 Weight 59.4 kg 59.4 kg Intake: IV 833 856 820 .9NS 20 150 120 190 Pressure bag 33 36 30 Sodium Chloride 0.45% 1, 550 600 500 000 ml @ 50 mls/hr IV . Q20H [facility] Rx#:[id number] levETIRAcetam IV 1,500 mg 100 100 100 In Saline 1 100ml.bag @ 400 mls/hr IVPB Q12HR [facility] Rx#:[id number] Intake, IV Titration 226 300 Amount Anidulafungin 100 mg In 126 Sodium Chloride 0.9% 100 ml @ 84 mls/hr IVPB DAILY @1700 [facility] Rx#:[id number] Levofloxacin 500Mg-D5w 100 100 Pmx 500 mg In Dextrose/ Water 1 100ml.bag @ 100 mls/hr IVPB Q24H [facility] Rx#: [id number] Magnesium Sulfate-D5w Pmx 200 1 gm In Dextrose/Water 1 100ml.bag @ 100 mls/hr IVPB Q1H [facility] Rx#: [id number] Tube Feeding 627 399 98 Other 185 120 Output: Urine 1810 1360 705 Stool 1 Other: Voiding Method Indwelling Catheter Indwelling Catheter Indwelling Catheter # Bowel Movements 1 ABP, PAP, CO, CI - Last Documented Arterial Blood Pressure 123/58 - Labs CBC & Chem 7: 09/28/21 05:17 09/28/21 05:17 Labs: Abnormal Lab Results - Last 24 Hours (Table) 09/27/21 09/27/21 09/28/21 Range/Units 17:37 23:06 05:17 RBC 2.90 L (3.80-5.40) m/uL Hgb 9.2 L (11.4-16.0) gm/dL Hct 29.4 L (34.0-46.0) % MCV 101.4 H (80.0-100.0) fL D-Dimer (<0.60) mg/L FEU ABG pCO2 (35-45) mmHg ABG pO2 (83-108) mmHg ABG HCO3 (21-25) mmol/L ABG Total CO2 (19-24) mmol/L ABG O2 Saturation (94-97) % Sodium (137-145) mmol/L Carbon Dioxide (22-30) mmol/L BUN (7-17) mg/dL Creatinine (0.52-1.04) mg/dL Glucose (74-99) mg/dL POC Glucose (mg/dL) 141 H 112 H (75-99) mg/dL AST (14-36) U/L ALT (4-34) U/L Total Protein (6.3-8.2) g/dL Albumin (3.5-5.0) g/dL 09/28/21 09/28/21 09/28/21 Range/Units 05:17 05:17 05:24 RBC (3.80-5.40) m/uL Hgb (11.4-16.0) gm/dL Hct (34.0-46.0) % MCV (80.0-100.0) fL D-Dimer 6.46 H (<0.60) mg/L FEU ABG pCO2 (35-45) mmHg ABG pO2 (83-108) mmHg ABG HCO3 (21-25) mmol/L ABG Total CO2 (19-24) mmol/L ABG O2 Saturation (94-97) % Sodium 136 L (137-145) mmol/L Carbon Dioxide 34 H (22-30) mmol/L BUN 27 H (7-17) mg/dL Creatinine 0.42 L (0.52-1.04) mg/dL Glucose 123 H (74-99) mg/dL POC Glucose (mg/dL) 126 H (75-99) mg/dL AST 95 H (14-36) U/L ALT 163 H (4-34) U/L Total Protein 5.8 L (6.3-8.2) g/dL Albumin 2.7 L (3.5-5.0) g/dL 09/28/21 09/28/21 Range/Units 05:45 11:30 RBC (3.80-5.40) m/uL Hgb (11.4-16.0) gm/dL Hct (34.0-46.0) % MCV (80.0-100.0) fL D-Dimer (<0.60) mg/L FEU ABG pCO2 46 H (35-45) mmHg ABG pO2 73 L (83-108) mmHg ABG HCO3 31 H (21-25) mmol/L ABG Total CO2 33 H (19-24) mmol/L ABG O2 Saturation 93.6 L (94-97) % Sodium (137-145) mmol/L Carbon Dioxide (22-30) mmol/L BUN (7-17) mg/dL Creatinine (0.52-1.04) mg/dL Glucose (74-99) mg/dL POC Glucose (mg/dL) 160 H (75-99) mg/dL AST (14-36) U/L ALT (4-34) U/L Total Protein (6.3-8.2) g/dL Albumin (3.5-5.0) g/dL
[2021-09-28] MEDS: ANIDULAFUNGIN 100 MG in SODIUM CHLORIDE 0.9% 100 ML IVPB SCH (16:08)
[2021-09-28 17:37] LABS: Glucose,Whole Blood 108 mg/dL (75-99)
--- NOTE | 2021-09-28 22:00 | P.PN ---
Subjective Progress Note Date: 09/28/21 Principal diagnosis: Pneumonia pressure ulcer and multiple antibiotic allergies Patient is a 51-year-old female presenting to the hospital on September 10 for mental status changes patient did have a evidence of COVID-19 infection, with respiratory failure requiring intubation also with E. coli UTI and the patient did have multiple antibiotic allergies. The patient is status post tracheostomy and PEG tube placement on 09/23/2021 On today's evaluation that is 09/28/2021, patient is afebrile today, the patient is hemodynamically stable not requiring pressor support, the patient FiO2 is stable at 35 %, no purulent secretions through the the ET or diarrhea has been reported by the nursing staff Objective - Vital Signs Vital signs: Vital Signs Temp 100.3 F H 09/28/21 16:00 Pulse 110 H 09/28/21 19:00 Resp 32 H 09/28/21 19:00 BP 141/87 09/28/21 19:00 Pulse Ox 95 09/28/21 19:00 Intake & Output 09/28/21 09/28/21 09/29/21 06:59 18:59 06:59 Intake Total 1375 1569 Output Total 1360 825 Balance 15 744 Weight 59.4 kg 59.4 kg Intake: IV 856 1030 .9NS 20 120 250 Pressure bag 36 30 Sodium Chloride 0.45% 1, 600 650 000 ml @ 50 mls/hr IV . Q20H [facility] Rx#:[id number] levETIRAcetam IV 1,500 mg 100 100 In Saline 1 100ml.bag @ 400 mls/hr IVPB Q12HR [facility] Rx#:[id number] Intake, IV Titration 400 Amount Anidulafungin 100 mg In 100 Sodium Chloride 0.9% 100 ml @ 84 mls/hr IVPB DAILY @1700 [facility] Rx#:[id number] Levofloxacin 500Mg-D5w 100 Pmx 500 mg In Dextrose/ Water 1 100ml.bag @ 100 mls/hr IVPB Q24H [facility] Rx#: [id number] Magnesium Sulfate-D5w Pmx 200 1 gm In Dextrose/Water 1 100ml.bag @ 100 mls/hr IVPB Q1H [facility] Rx#: [id number] Tube Feeding 399 139 Other 120 Output: Urine 1360 825 Other: Voiding Method Indwelling Catheter Indwelling Catheter ABP, PAP, CO, CI - Last Documented Arterial Blood Pressure 123/58 - Exam GENERAL DESCRIPTION: Middle-aged male intubated on the vent, no distress. No tachypnea or accessory muscle of respiration use. LUNGS: Unlabored breathing. Decreased breath sound at the base. No wheeze or crackle. HEART: S1, S2, regular rate and rhythm. No loud murmur ABDOMEN: Soft, no tenderness , guarding or rigidity, no organomegaly EXTREMITIES: No edema of feet. - Labs CBC & Chem 7: 09/28/21 05:17 09/28/21 05:17 Labs: Abnormal Lab Results - Last 24 Hours (Table) 09/27/21 09/28/21 09/28/21 Range/Units 23:06 05:17 05:17 RBC 2.90 L (3.80-5.40) m/uL Hgb 9.2 L (11.4-16.0) gm/dL Hct 29.4 L (34.0-46.0) % MCV 101.4 H (80.0-100.0) fL D-Dimer (<0.60) mg/L FEU ABG pCO2 (35-45) mmHg ABG pO2 (83-108) mmHg ABG HCO3 (21-25) mmol/L ABG Total CO2 (19-24) mmol/L ABG O2 Saturation (94-97) % Sodium 136 L (137-145) mmol/L Carbon Dioxide 34 H (22-30) mmol/L BUN 27 H (7-17) mg/dL Creatinine 0.42 L (0.52-1.04) mg/dL Glucose 123 H (74-99) mg/dL POC Glucose (mg/dL) 112 H (75-99) mg/dL AST 95 H (14-36) U/L ALT 163 H (4-34) U/L Total Protein 5.8 L (6.3-8.2) g/dL Albumin 2.7 L (3.5-5.0) g/dL 09/28/21 09/28/21 09/28/21 Range/Units 05:17 05:24 05:45 RBC (3.80-5.40) m/uL Hgb (11.4-16.0) gm/dL Hct (34.0-46.0) % MCV (80.0-100.0) fL D-Dimer 6.46 H (<0.60) mg/L FEU ABG pCO2 46 H (35-45) mmHg ABG pO2 73 L (83-108) mmHg ABG HCO3 31 H (21-25) mmol/L ABG Total CO2 33 H (19-24) mmol/L ABG O2 Saturation 93.6 L (94-97) % Sodium (137-145) mmol/L Carbon Dioxide (22-30) mmol/L BUN (7-17) mg/dL Creatinine (0.52-1.04) mg/dL Glucose (74-99) mg/dL POC Glucose (mg/dL) 126 H (75-99) mg/dL AST (14-36) U/L ALT (4-34) U/L Total Protein (6.3-8.2) g/dL Albumin (3.5-5.0) g/dL 09/28/21 09/28/21 Range/Units 11:30 17:36 RBC (3.80-5.40) m/uL Hgb (11.4-16.0) gm/dL Hct (34.0-46.0) % MCV (80.0-100.0) fL D-Dimer (<0.60) mg/L FEU ABG pCO2 (35-45) mmHg ABG pO2 (83-108) mmHg ABG HCO3 (21-25) mmol/L ABG Total CO2 (19-24) mmol/L ABG O2 Saturation (94-97) % Sodium (137-145) mmol/L Carbon Dioxide (22-30) mmol/L BUN (7-17) mg/dL Creatinine (0.52-1.04) mg/dL Glucose (74-99) mg/dL POC Glucose (mg/dL) 160 H 108 H (75-99) mg/dL AST (14-36) U/L ALT (4-34) U/L Total Protein (6.3-8.2) g/dL Albumin (3.5-5.0) g/dL Assessment and Plan (1) Pneumonia Current Visit: Yes Status: Acute Code(s): J18.9 - PNEUMONIA, UNSPECIFIED ORGANISM SNOMED Code(s): 126500373 (2) Allergy to multiple antibiotics Current Visit: Yes Status: Acute Code(s): Z88.1 - ALLERGY STATUS TO OTHER ANTIBIOTIC AGENTS SNOMED Code(s): 868140351 (3) COVID-19 Current Visit: Yes Status: Acute Code(s): U07.1 - COVID-19 SNOMED Code(s): 849288242 Plan: 1-Patient with acute respiratory failure which is multifactorial in this patient who did have a covid19 pneumonia and a concern for possible secondary bacterial pneumonia patient With a new fever blood and sputum cultures were done and blood culture has been negative sputum showing Radha and MSSA. patient did have a penicillin and cephalosporin ALLERGY, patient is currently covered with Levaquin and Eraxis to continue and monitor clinical course closely 2-patient with unstageable sacral pressure ulcer as well as unstageable pressure ulcer to the upper back area, local wound care with the matthewoney followed by moist dressing to keep the area off the pressure and continue supportive care Time with Patient: Less than 30
[2021-09-28 23:46] LABS: Glucose,Whole Blood 110 mg/dL (75-99)
--- NOTE | 2021-09-29 01:46 | P.PN ---
Subjective Progress Note Date: 09/28/21 This is a pleasant 51 years old female with past medical history of Coronary Artery Disease, Heart Failure, CVA/TIA, Pulmonary Embolus (PE), Seizure Disorder, Last seizure 2009, CVA 2007 with L sided weakness arm and leg and has L foot drop, TIA 2018, cardiomyopathy, R PE and pneumothorax/pneumonia following leg fracture in 1994, gestational diabetes with all pregnancies , bilateral glaucoma with surgery, psoriasis in the past, UTIs. She is a status post Pacemaker, history of Bilateral eye surgery for glaucoma, Anxiety, Depression, Current every day smoker Patient presents because of altered mental status. Information was limited from the patient. It was obtained from the chart and medical staff. Also as per family patient was able to go to the bathroom, was more lethargic and tired over the last day. While in the emergency room focal mild seizure is noticed On admission patient had and fever of 101. She is tachypneic at 26-40, tachycardic 110-140, also she is hypoxic saturating 72% on room air Labs showing WBC of 10.5, hemoglobin of 16.3, platelet count of 197. INR 1.7. Sodium 164, creatinine 1.7, lactic acid elevated 4.6. Liver enzymes elevated with AST 202 and ALT 81. Bilirubin is normal at 1.3. Urine analysis is highly suspicious of infection Urine drug screen is negative Cash versus positive Chest x-ray showing left perihilar and left lower lobe area of infiltrate and small effusion correlates for pneumonia CT of the brain without contrast showing no intracranial hemorrhage, evidence of remote ischemic change. However there is vague low attenuation near the left thalamus and left cerebral peduncle. Acute ischemia in the differential diagnosis. Recommend stat MRI of brain with MRSA [facility] as clinically warranted. In the emergency room patient was started on aztreonam and IV vancomycin, Keppra and heparin drip 09/11/2021 Patient today was still in the ICU, she was very weak and obtunded, she will wake up to certain stabilized and moans, she does not follow commands she cannot, gait she moved both extremities symmetrically. R on she had collapse of her left lung cancer and she has to be intubated and repeat chest x-ray showing better. A of the left lung. She is tachypneic with a breathing rate 22, no more fever since yesterday. Her sodium improved down to 144 and she was started on normal saline, creatinine 1.1, Ejection fraction showed 30-35% which is slice worsened from 06/2021 where it was 35-40% She remains on dexamethasone, IV vancomycin and clindamycin, heparin drip, Keppra and normal saline at 75 mL/h 09/12/2021 Patient with respiratory failures and she was intubated and placed on mechanical ventilation with pulmonary/critical care team following her mostly. There is no more seizure-like activity noticed. She still tachypneic with a breathing rate of 32 blood pressure 100/70, she is needing FiO2 of 80% and PEEP of 20. She has no more fevers since admission. Urine culture is growing gram-negative bacilli. Sodium is 146, WBCs is increased at 16.5 K. PH showing acidosis with 7.1 and elevated pCO2 at 83. Chest x-ray showing left sided opacities with near full. A of the left lung. Patient kept on antibiotics in the form of clindamycin and Levaquin and fluconazole. Also she remains on dexamethasone, and so a heparin to Lovenox. Also continued on seizure medication 1500 mg twice a day and IV fluids per pulmonary team. Neurology team on the case 09/13/2021 Patient remains intubated and sedated with pulmonary/critical care team following her closely. Her PEEP is lower today to 18. She remains on FiO2 of 50%. She is tachypneic at 32 about blood pressure is controlled. Her inflammatory markers are increased to LDH of 1009 and CRP of 25.1. Bicarb is elevated at 31 WBC is 17.7, sodium improved to 142. Creatinine improved to 0.6. Chest x-ray showed improving left lung infiltrate. PH is improved slightly 7.2 with pCO2 is slightly better at 79. Urine culture is growing E. coli which is sensitive to the antibiotics. Currently patient is covered with clindamycin, Levaquin and fluconazole. Also she is on dexamethasone 6 mg, Keppra 1500 mg and half-normal saline at 50 mL per hour Anticoagulation switch from heparin drip and to Lovenox 09/14/2021 Patient still intubated and sedated on mechanical ventilation with pulmonary/critical care team following her closely and just her vent setting. Today her FiO2 of 55%, and she is tachypneic at 33 breath per minute. Labs showing stable findings with sodium 141, creatinine 0.8, liver enzymes slightly elevated, LDH slightly down at 797 and CRP 2-3.2. Same leukocytosis at 14.7. Her pH is 7.2 and carbon dioxide is 82. D-dimer mildly elevated at 0.9, just x-ray showing bilateral infiltrate with no significant change from prior. She remains on the same antibiotic of clindamycin, Levaquin, dexamethasone, Keppra 1500 mg and half normal saline at 50 mL/h 09/15/2021 Patient in the ICU intubated and sedated, with pulmonary/critical care team following closely. FiO2 still 50%, hemodynamically showing both staple blood pressure 101/40, patient is tachypneic more than 30 per minutes. PEEP is lower. wbc of 11.3, hemoglobin 9.4, sodium 140, creatinine 0.8. chest x-ray: mild worsening infiltrate in the left lobe. patient continued with the same treatment of clindamycin, levaquin, dexamethasone, keppra and she received 1 l of normal saline today. 09/16/2021 Patient is seen and evaluated and follow-up continues to be closely monitored in the ICU. Multiple medical consultations following including infectious disease, pulmonary [employer] and [employer], and neurology. Patient continues on mechanical vent with an FiO2 of 50% and PEEP is 10. Weaning is being continued and PEEP is being titrated down to 8. Patient continues with sedation holidays and very minimal propofol and patient is now off Nimbex and very minimal stimulus noted. Patient response to painful stimulus minimally. Plan is for possible CT of the brain repeat this afternoon. Patient also being closely monitored for continued seizures of which she does have a past medical history of. Patient is also Covid positive and infectious disease is following and patient is maintained on clindamycin along with Levaquin. Chest x-ray today shows correlate for left lower lobe pneumonia versus atelectasis with possible associated effusion. 09/17/2021 Patient is seen in follow-up this morning closely monitored in the ICU. Neurology also following and patient is maintained on IV Keppra. Patient also continues on IV antibiotics in the form of aztreonam and clindamycin with infectious disease following. Patient urine culture showing E. coli. Chest x- ray today shows chronic emphysematous changes with left basilar acute infiltrate and/or atelectasis and likely small left pleural effusion all redemonstrated with no significant change from previous day. Neurology following And okay to resume anticoagulant as there is no evidence of new intracranial process or hemorrhage. Patient is off sedation and continues to be unresponsive. 09/18/2021 Patient is evaluated again this morning and continues to be in the ICU on mechanical vent and being closely monitored. FiO2 is at 45% and PEEP is 8. Patient continues to be off sedation with no response for over 24 hours. Neurology following as well and have discussed overall prognosis with family and family discussing with other family members about CODE STATUS and treatment plan moving forward. Infectious disease also following and patient is maintained on IV Levaquin along with clindamycin and aztreonam and will continue. Urine cultures finalized showing E. coli and sputum culture preliminary is pending at this time. 09/19/2020 Patient evaluated today in the ICU on mechanical ventilation. Fi02 at 45% with a PEEP of 8. Propofol infusing, Nimbex and Levophed are currently on hold. Pr ecedex discontinued. There has been no response, and mental status is not improving. Still no response to verbal stimuli. Patient is being followed closely by neurology for this and is on IV keppra and tegretol. EEG consistant with toxic metabolic encepholapthy. Repeat chest xray today shows similar opacities given patient rotation. Stable support tubes. Mild pulmonary vascular congestion correlate with serum BNP. Blood cultures negative, pending finalized, sputum negative so far. Labs reviewed today: WBC 9.2, hgb 10.3, sodium 138, potassium 3.8, BUN 33, Cr 0.76, glucose in the 110's, calcium 7.9, AST 250, ALT 78, Albumin 2.3. Vitals reviewed: Temp 97.4, HR 126, RR 44, Blood pressure 113/80, 96% oxygen saturation on mechanical ventilation. 09/20/2021 Patient evaluated in ICU on mechanical ventilation with an Fi02 of 45%, PEEP of 12. Chest xray today shows left lower lobe atelectasis versus pneumonia with similar findings as previous. BNP yesterday 12,500, however xray reviewed and d oes not appear to be showing heart failure. She is in negative fluid balance. Status was addressed with family by neurology who is awaiting a phone call back. White count 12.8, RBC 3.5, sodium 137 potassium 3.8, chloride 101, CO2 33, BUN 35, creatinine 0.68, blood sugars in the 120s, AST 424, ALT 115, alk phos 63. Running temps today 100.8, heart rate 123, respiratory rate 36, blood pressure 95/65, oxygen saturation of 93-94%. Blood pressures are on the softer side 88/55. Current infusions include propofol which has been resumed as patient has not shown any signs of neurological improvement while on a propofol break. 09/21/2021 Patient is seen in follow up today and continues to be on mechanical vent with an FI02 of 45% with a peep of 8 and multiple medical consultations following. Ch est xray similar from previous with copd and continued focal basilar left lower lobe retrocardiac consolidation or atelectasis. Patient is on propofol and general surgery has been consulted for peg and trach placement. Plan for surgery is tomorrow. 09/22/2021 Patient is seen and evaluated in follow-up this morning continues on mechanical ventilation with a PEEP of 8 and FiO2 is 45%. General surgery following an plan is for PEG and trach placement today due to prolonged mechanical ventilation and no improvements or weaning from the vent. Patient continues on tube feeding along with Lovenox which is currently on hold for the surgical procedure. Patient's chest x-ray today shows diffuse bilateral infiltrates that are stable with no pneumothorax or pleural effusion noted. Patient also had gallbladder ultrasound secondary to elevated liver functions and shows hepatomegaly otherwise unremarkable. Patient is continued on antifungal's along with vancomycin and infectious disease following closely. Sputum cultures preliminary showing Radha glabrata and Staphylococcus aureus and most recent blood cultures have been negative. 09/23/2021 Patient is seen in follow-up this morning and patient was unable to receive PEG and trach with general surgery following yesterday and plan is for today. Patient continues on mechanical vent and FiO2 is 45% with a PEEP of 8. Lovenox and tube feeding currently on hold. Chest xray reviewed and no acute changes from yesterday. Continues to be unresponsive. Prognosis remains poor. 09/24/2021 Patient is seen this morning status post PEG and trach placement and is resuming tube feedings with general surgery following. Patient continues on mechanical vent with an FiO2 of 40% and PEEP is 8. Per nursing staff working on weaning sedation and assessing neuro status. Continues with being obtunded and no purposeful movements noted. Chest xray shows COPD with improvement in previous left pleural effusion with mild patchy infiltrates/retrocardiac atelectasis noted. 09/25/2021 Patient is seen and evaluated today continues to be in the ICU on mechanical ventilation and continues on sedation with attempts at weaning. FI02 is 40% and peep of 8. Multiple medical consultations following. Plan is for repeat ct of the brain sometime this afternoon. Per nursing staff patient is tolerating tube feeds. Chest xray today shows suboptimal study due to positioning and unable to exclude some worsening atelectasis or infiltrate. 09/26/2021 Patient is in the MICU. Status post tracheostomy and PEG tube placement on 09/23/2021 remains on mechanical ventilator. FiO2 40% and PEEP of 8. Patient remains unresponsive and does not follow simple commands. Repeat CT done on 09/25/2021 showed findings consistent with cerebrovascular infarction bilaterally. May be indicative of otitis media bilaterally. No acute brain abnormality evident. Patient is being continued antibiotics in the form of Levaquin and Eraxis per bacterial pneumonia and sputum cultures growing Radha and staph aureus. Laboratory data showed WBC 8.7 hemoglobin 8.8 and platelets 330 Sodium 138 potassium 3.6 chloride 102 bicarb is 34 BUN 2020 creatinine 0.38 and calcium 8.4 Patient is being continued antibiotics and antiepileptic medications. Pulmonary, neurology and ID is on board. 09/27/2021 Patient is in the MICU. Status post tracheostomy and PEG tube placement and mechanical ventilator. Patient is off sedation. Currently on assist control with tidal volume 325 FiO2 35% and PEEP of 8. Patient remains obtunded and does not follow simple commands. Chest x-ray showed improvement in the opacity in the obscuring the left hemidiaphragm on the prior study. Most likely represents decreasing small pleural effusion Laboratory showed WBC 8.3 hemoglobin 9.5 platelets 102 sodium 138 potassium 4.0 chloride 103 bicarb is 31 BUN 2020 creatinine 0.45 calcium 8.8 patient is being current on antibiotics in the form of Levaquin and Eraxis. Decadron has been discontinued. 09/28/2021 Patient continues to be closely monitored in the ICU with multiple medical consultations following. Current FiO2 is 35% and PEEP is 5. She is off sedation. Per nursing staff, patient did squeeze her right hand although unresponsive on exam. Patient chest xray shows chronic emphysematous change with left basilar acute infiltrate and or atelectasis and likely small left pleural effusion are all redemonstrated with no significant change from one day earlier. Patient continues on tube feeding and tolerating. Social work following and working on placement. Peer to Peer for insurance required. Patient also continues on Levaquin and antifungal for MSSA and radha glabrata in the sputum. Continue local wound care. Review of systems: Unable to obtain as patient continues to be on mechanical ventilation and sedated Labs: WBC is 6.0, hemoglobin is 9.2, platelets are 365, d-dimer 6.46, sodium is 136, potassium 3.6, BUN 27, creatinine 0.4 to come a calcium is 8.5, magnesium 1.6, AST 95, ALT 163 Active Medications Acetaminophen (Acetaminophen Tab 325 Mg Tab) 650 mg PO Q6HR PRN PRN Reason: Fever and/ or Pain Last Admin: 09/21/21 23:30 Dose: 650 mg Documented by: Amiodarone HCl (Amiodarone 200 Mg Tab) 200 mg PO DAILY [facility] Last Admin: 09/28/21 08:22 Dose: 200 mg Documented by: Artificial Tears (Artificial Tears-Hypromellose Drops 15 Ml Btl) 1 drops BOTH EYES QID PRN PRN Reason: Dry Eye(s) Last Admin: 09/16/21 08:58 Dose: 1 drops Documented by: Carbamazepine (Carbamazepine 200 Mg Tab) 200 mg PO TID [facility] Last Admin: 09/28/21 08:23 Dose: 200 mg Documented by: Chlorhexidine Gluconate (Chlorhexidine Gluconate 15 Ml Cup) 15 ml MUCOUS MEM BID [facility] Last Admin: 09/28/21 09:02 Dose: 15 ml Documented by: Cholecalciferol (Cholecalciferol 125 Mcg (5000 Iu) Tablet) 125 mcg PO DAILY [facility] Last Admin: 09/28/21 08:22 Dose: 125 mcg Documented by: Enoxaparin Sodium (Enoxaparin 40 Mg/0.4 Ml Syringe) 40 mg SQ DAILY [facility] Last Admin: 09/28/21 08:24 Dose: 40 mg Documented by: Hydromorphone HCl (Hydromorphone 1 Mg/Ml 1 Ml Syringe) 1 mg IVP Q2H PRN PRN Reason: Pain Last Admin: 09/28/21 10:36 Dose: 1 mg Documented by: Levetiracetam 1,500 mg/ IV (Solution) 100 mls @ 400 mls/hr IVPB Q12HR [facility] Last Admin: 09/28/21 09:01 Dose: 400 mls/hr Documented by: Sodium Chloride (Saline 0.45%) 1,000 mls @ 50 mls/hr IV .Q20H [facility] Last Admin: 09/28/21 03:39 Dose: 50 mls/hr Documented by: Anidulafungin 100 mg/ Sodium (Chloride) 130 mls @ 84 mls/hr IVPB DAILY@1700 [facility] Last Admin: 09/27/21 16:10 Dose: 84 mls/hr Documented by: Propofol 1,000 mg/ IV Solution 100 mls @ 0 mls/hr IV .Q0M [facility]; Protocol Last Titration: 09/24/21 11:28 Dose: 0 mcg/kg/min, 0 mls/hr Documented by: Levofloxacin 500 mg/ IV (Solution) 100 mls @ 100 mls/hr IVPB Q24H [facility] Last Admin: 09/28/21 09:49 Dose: 100 mls/hr Documented by: Clevidipine 25 mg/ IV Solution 50 mls @ 2 mls/hr IV .Q24H [facility]; Protocol Last Admin: 09/27/21 15:38 Dose: Not Given Documented by: Insulin Aspart (Insulin Aspart (Novolog) 100 Unit/Ml Vial) 0 unit SQ Q6H [facility]; Protocol Last Admin: 09/28/21 12:29 Dose: 1 unit Documented by: Miscellaneous Information (Potassium Replacement Protocol 1 Each Misc) 1 each MISCELLANE DAILY PRN; Protocol PRN Reason: Per Protocol Miscellaneous Information (Magnesium Replacement Protocol 1 Each Misc) 1 each MISCELLANE DAILY PRN; Protocol PRN Reason: Per Protocol Naloxone HCl (Naloxone 0.4 Mg/Ml 1 Ml Vial) 0.2 mg IV Q2M PRN PRN Reason: Opioid Reversal Pantoprazole Sodium (Pantoprazole 40 Mg/10 Ml Vial) 40 mg IV DAILY [facility] Last Admin: 09/28/21 09:01 Dose: 40 mg Documented by: Quetiapine Fumarate (Quetiapine 25 Mg Tab) 25 mg PO BID [facility] Last Admin: 09/28/21 08:24 Dose: 25 mg Documented by: Physical exam: GENERAL: The patient is intubated and sedated, FiO2 is 35% and PEEP is 5 HEENT: Pupils are round and equally reacting to light. EOMI. No scleral icterus. No conjunctival pallor. Normocephalic, atraumatic. No pharyngeal erythema. No thyromegaly. CARDIOVASCULAR: S1 and S2 present. No murmurs, rubs, or gallops. PULMONARY: diminished breath sounds bilaterally with coarse rhonchi noted ABDOMEN: Soft, nontender, nondistended, normoactive bowel sounds. No palpable organomegaly. MUSCULOSKELETAL: No joint swelling or deformity. EXTREMITIES: No cyanosis, clubbing, or pedal edema. NEUROLOGICAL: unresponsive, remains off sedation SKIN: No rashes. no petechiae. Assessment: Altered mental status could be metabolic/toxic encephalopathy, ruled out other intracranial lesions, and possibly secondary to seizure Acute hypoxic respiratory failure secondary to COVID-19 pneumonia requiring mech anical ventilation status post peg tube and tracheostomy placement Left lower lobe pneumonia, rule out aspiration pneumonia Acute urinary tract infection, present on admission with culture showing E. coli Sepsis secondary to UTI and pneumonia Breakthrough seizure Bilateral interstitial Covid 19 pneumonia Increased inflammatory markers elevated troponin, most likely type II ischemia. Rule out primary cardiac causes Cardiomyopathy with most recent EF of 30-35% Hypernatremia, improved Acute kidney injury, improved Mild elevated liver enzymes History of coronary artery disease History of pulmonary embolism History of seizure disorder, last seizure was in 2009 as per documents History 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 left foot drop History of glaucoma status post surgery Status post permanent pacemaker Nicotine dependence GI prophylaxis DVT prophylaxis Full code Plan: This is a pleasant 51 years old female who presented with altered mental status, pneumonia, UTI, possible stroke although most likely old infarcts noted on CT, seizure and positive for covid pneumonia patient was intubated and continues on mechanical ventilation with a FiO2 of 35% and PEEP is 5. Patient is status post PEG and trach placement recently from prolonged mechanical ventilation. Continue with Keppra and neurology following and patient has been off sedation and continues to be unresponsive. CT of the brain shows old right hemisphere infarct without change old left posterior frontal lobe cortical infarct without change and no acute abnormality. pulmonary and infectious disease following, continue the broad-spectrum antibiotics in the form of levaquin along with antifungals Continue withvitamin and zinc supplements along with Lovenox Overall Prognosis remains poor and extremely guarded Social work following and working on possible LTAC and insurance requires peer to peer review. Will continue to monitor closely. Objective - Vital Signs Vital signs: Vital Signs Temp 99.2 F 09/28/21 04:00 Pulse 110 H 09/28/21 07:00 Resp 37 H 09/28/21 07:00 BP 135/73 09/28/21 06:00 Pulse Ox 95 09/28/21 07:00 Intake & Output 09/27/21 09/28/21 09/28/21 18:59 06:59 18:59 Intake Total 1871 1375 63 Output Total 1811 1360 65 Balance 60 15 -2 Weight 59.4 kg Intake: IV 833 856 63 .9NS 20 150 120 10 Pressure bag 33 36 3 Sodium Chloride 0.45% 1, 550 600 50 000 ml @ 50 mls/hr IV . Q20H [facility] Rx#:[id number] levETIRAcetam IV 1,500 mg 100 100 In Saline 1 100ml.bag @ 400 mls/hr IVPB Q12HR [facility] Rx#:[id number] Intake, IV Titration 226 Amount Anidulafungin 100 mg In 126 Sodium Chloride 0.9% 100 ml @ 84 mls/hr IVPB DAILY @1700 [facility] Rx#:[id number] Levofloxacin 500Mg-D5w 100 Pmx 500 mg In Dextrose/ Water 1 100ml.bag @ 100 mls/hr IVPB Q24H [facility] Rx#: [id number] Tube Feeding 627 399 Other 185 120 Output: Urine 1810 1360 65 Stool 1 Other: Voiding Method Indwelling Catheter Indwelling Catheter # Bowel Movements 1 ABP, PAP, CO, CI - Last Documented Arterial Blood Pressure 93/75 - Labs CBC & Chem 7: 09/28/21 05:17 09/28/21 05:17 Labs: Abnormal Lab Results - Last 24 Hours (Table) 09/27/21 09/27/21 09/27/21 Range/Units 11:32 17:37 23:06 RBC (3.80-5.40) m/uL Hgb (11.4-16.0) gm/dL Hct (34.0-46.0) % MCV (80.0-100.0) fL D-Dimer (<0.60) mg/L FEU ABG pCO2 (35-45) mmHg ABG pO2 (83-108) mmHg ABG HCO3 (21-25) mmol/L ABG Total CO2 (19-24) mmol/L ABG O2 Saturation (94-97) % Sodium (137-145) mmol/L Carbon Dioxide (22-30) mmol/L BUN (7-17) mg/dL Creatinine (0.52-1.04) mg/dL Glucose (74-99) mg/dL POC Glucose (mg/dL) 156 H 141 H 112 H (75-99) mg/dL AST (14-36) U/L ALT (4-34) U/L Total Protein (6.3-8.2) g/dL Albumin (3.5-5.0) g/dL 09/28/21 09/28/21 09/28/21 Range/Units 05:17 05:17 05:17 RBC 2.90 L (3.80-5.40) m/uL Hgb 9.2 L (11.4-16.0) gm/dL Hct 29.4 L (34.0-46.0) % MCV 101.4 H (80.0-100.0) fL D-Dimer 6.46 H (<0.60) mg/L FEU ABG pCO2 (35-45) mmHg ABG pO2 (83-108) mmHg ABG HCO3 (21-25) mmol/L ABG Total CO2 (19-24) mmol/L ABG O2 Saturation (94-97) % Sodium 136 L (137-145) mmol/L Carbon Dioxide 34 H (22-30) mmol/L BUN 27 H (7-17) mg/dL Creatinine 0.42 L (0.52-1.04) mg/dL Glucose 123 H (74-99) mg/dL POC Glucose (mg/dL) (75-99) mg/dL AST 95 H (14-36) U/L ALT 163 H (4-34) U/L Total Protein 5.8 L (6.3-8.2) g/dL Albumin 2.7 L (3.5-5.0) g/dL 09/28/21 09/28/21 Range/Units 05:24 05:45 RBC (3.80-5.40) m/uL Hgb (11.4-16.0) gm/dL Hct (34.0-46.0) % MCV (80.0-100.0) fL D-Dimer (<0.60) mg/L FEU ABG pCO2 46 H (35-45) mmHg ABG pO2 73 L (83-108) mmHg ABG HCO3 31 H (21-25) mmol/L ABG Total CO2 33 H (19-24) mmol/L ABG O2 Saturation 93.6 L (94-97) % Sodium (137-145) mmol/L Carbon Dioxide (22-30) mmol/L BUN (7-17) mg/dL Creatinine (0.52-1.04) mg/dL Glucose (74-99) mg/dL POC Glucose (mg/dL) 126 H (75-99) mg/dL AST (14-36) U/L ALT (4-34) U/L Total Protein (6.3-8.2) g/dL Albumin (3.5-5.0) g/dL
[2021-09-29] MEDS: HYDROmorphone 1 MG/ML 1 ML SYRINGE IVP PRN ×3 (03:16→21:50)
[2021-09-29] MEDS: INSULIN ASPART (NovoLOG) 100 UNIT/ML VIAL SQ SCH ×4 (03:17→18:19)
[2021-09-29] MEDS: SODIUM CHLORIDE 0.45% 1,000 ML IV SCH ×2 (03:26→21:41)
[2021-09-29 05:35] LABS: ABG Base Excess 8.9 mmol/L; ABG HCO3 32 mmol/L (21-25); ABG Oxygen Saturation 95.1 % (94-97); ABG PCO2 44 mmHg (35-45); ABG PH 7.48 (7.35-7.45); ABG PO2 76 mmHg (83-108); ABG TCO2 34 mmol/L (19-24); Allen Test Performed? Yes
[2021-09-29 05:59] LABS: Glucose,Whole Blood 131 mg/dL (75-99)
[2021-09-29 06:16] LABS: Basophils % (A) 0 %; Eosinophils # (A) 0.1 k/uL (0-0.7); Eosinophils % (A) 2 %; HCT 28.3 % (34.0-46.0); HGB 9.1 gm/dL (11.4-16.0); Hypochromasia Slight; Lymphocytes # (A) 0.9 k/uL (1.0-4.8); Lymphocytes % (A) 13 %; MCH 32.3 pg (25.0-35.0); MCHC 32.1 g/dL (31.0-37.0); MCV 100.6 fL (80.0-100.0); Macrocytosis Slight; Mean Platelet Volume 8.4; Monocytes # (A) 0.4 k/uL (0-1.0); Monocytes % (A) 7 %; Neutrophils # (A) 5.1 k/uL (1.3-7.7); Neutrophils % (A) 77 %; Platelet Count 298 k/uL (150-450); RBC 2.82 m/uL (3.80-5.40); RDW 14.6 % (11.5-15.5); WBC 6.7 k/uL (3.8-10.6)
[2021-09-29 06:35] LABS: ALT 115 U/L (4-34); AST 51 U/L (14-36); African American GFR (CKD) >90 (>60 ml/min/1.73 sqM); Albumin 2.7 g/dL (3.5-5.0); Alkaline Phosphatase 67 U/L (38-126); Anion Gap 5 mmol/L; Blood Urea Nitrogen 22 mg/dL (7-17); Calcium 8.5 mg/dL (8.4-10.2); Carbon Dioxide 30 mmol/L (22-30); Chloride 99 mmol/L (98-107); Glucose 118 mg/dL (74-99); Magnesium 1.9 mg/dL (1.6-2.3); Non-African American GFR(CKD) >90 (>60 ml/min/1.73 sqM); Sodium 134 mmol/L (137-145); Total Bilirubin 0.5 mg/dL (0.2-1.3); Total Protein 5.8 g/dL (6.3-8.2)
--- NOTE | 2021-09-29 07:06 | P.PN ---
Subjective Progress Note Date: 09/29/21 This is a 51-year-old female patient with established COVID 19 related pneumonia, prolonged respiratory failure, was currently in the intensive care unit being seen for a follow-up. 09/28/2021, the patient is being seen for a follow-up. She is on a mechanical ventilator. The chest and the tumors are diminished sense and for prolonged respiratory failure. This morning, the patient at the rate of 30 to assist- control mode with a tidal volume of 325, FiO2 of 35% and a PEEP of 8. She has a Bivona tracheostomy tube #8. Note that the patient has been off sedation since 09/24/2021. Neurologically, she is still unresponsive. She is not following any commands. The patient opens up her eyes spontaneously. She grimaces to painful stimulation. She is quite comfortable in a mechanical ventilator. She is hemodynamically stable on no pressors. She is receiving enteral feeding for nutritional support in the form of vital AF at the rate of 57 mL an hour. She is also on half-normal saline today to 50 mL an hour. She has a triple lumen catheter in her right femoral vein. She is also done and arterial line that is nonfunctioning. Her blood work today shows a pH of 7.44 with a pCO2 of 46 and pO2 of 73. White cell count and 6 with a hemoglobin of 9.2 and a platelet count of 364. Sodium is at 136. Normal renal function with a mean of 27 and a creatinine of 0.4. LFTs are slightly abnormal with an AST of 95, ALT of 163, albumin is at 2.7. Chest x-ray was done today and it shows adequate positioning of the Bivona tracheostomy tube which is around 2 cm above the polo. The patient has a defibrillator in place. Patient also has some left lower lobe atelectasis and some limited perihilar pulmonary infiltrates left more than right. Note that her chest x-ray findings have been stable for the past several days. In terms of treatment, the patient is on Lovenox 40 mg subcu for DVT prophylaxis. The patient is on no steroids. Antibiotic coverage includes a combination of Levaquin and Eraxis for presence of Radha glabrata in the sputum. The patient's cardiac rhythm is sinus. The patient is on amiodarone maintenance on milligrams on a daily basis. The patient is still on Keppra 1.5 g every 12 hours. No seizure activity has been noted. The patient is currently off Cleviprex Infusion. 09/29/2021, the patient is being seen for a follow-up. She is a case of COVID D related pneumonia with prolonged respiratory failure. The patient remains on a mechanical ventilator. This morning, she is on no sedation. She is an assist- control mode of mechanical ventilation with a tidal volume of 325, FiO2 is at 35%, PEEP is at 5 and rate is at 26. The morning blood gases showed a pH of 7.48 with a pCO2 of 44 and pO2 of 76. The chest x-ray from today was reviewed and it showed stable findings. Tracheostomy tube remains in a good location. No evidence of pneumothorax. The patient has a defibrillator/pacemaker or the left anterior chest area. Atelectatic changes and small effusion still seen in the left lung base. The patient has a #[address]ona [address] in place[address] No significant orotracheal secretions. She is arousable. She communicates. The plan is ultimately to transfer this patient to select specialty. She was interactive today and she was grimacing to painful stimulation. She was unable to carry a conversation yet. The patient remains on broad-spectrum antibiotics per she is on a combination of Levaquin and Eraxis. Levaquin is 4 MSSA in her sputum and Eraxis as for Radha breath and her sputum. The patient remains afebrile. She is hemodynamically stable. The white cell count is at 6.7 with a hemoglobin of 9.1, both are being stable. Leonor to stable, sodium is at 134 with a potassium level of 4.0, BUN is at 22 with a creatinine of 0.3. LFTs are slightly elevated and the patient continues to have a mild component of transam initis. In addition to the current antibiotic coverage, the patient is on Keppra for seizures in combination with Tegretol, IV Protonix for GI prophylaxis, Lovenox 40 mg subcu for DVT prophylaxis. The patient has completed course of steroids. The cardiac rhythm remains sinus. The patient remains on amiodarone 200 mg by mouth once a day. Objective - Vital Signs Vital signs: Vital Signs Temp 100.3 F H 09/28/21 16:00 Pulse 97 09/29/21 05:00 Resp 33 H 09/29/21 05:00 BP 156/100 09/29/21 05:00 Pulse Ox 94 L 09/29/21 05:00 Intake & Output 09/28/21 09/28/21 09/29/21 06:59 18:59 06:59 Intake Total 1690 1626 1200 Output Total 1360 825 925 Balance 330 801 275 Weight 59.4 kg 59.4 kg 56.7 kg Intake: IV 856 1030 700 .9NS 20 120 250 200 Pressure bag 36 30 Sodium Chloride 0.45% 1, 600 650 500 000 ml @ 50 mls/hr IV . Q20H [facility] Rx#:[id number] levETIRAcetam IV 1,500 mg 100 100 In Saline 1 100ml.bag @ 400 mls/hr IVPB Q12HR [facility] Rx#:[id number] Intake, IV Titration 400 Amount Anidulafungin 100 mg In 100 Sodium Chloride 0.9% 100 ml @ 84 mls/hr IVPB DAILY @1700 [facility] Rx#:[id number] Levofloxacin 500Mg-D5w 100 Pmx 500 mg In Dextrose/ Water 1 100ml.bag @ 100 mls/hr IVPB Q24H [facility] Rx#: [id number] Magnesium Sulfate-D5w Pmx 200 1 gm In Dextrose/Water 1 100ml.bag @ 100 mls/hr IVPB Q1H [facility] Rx#: [id number] Tube Feeding 684 196 410 Other 150 90 Output: Urine 1360 825 925 Other: Voiding Method Indwelling Catheter Indwelling Catheter Indwelling Catheter ABP, PAP, CO, CI - Last Documented Arterial Blood Pressure 123/58 - Exam No acute distress, currently off propofol, with a midline tracheostomy. The patient has a #8 bivona tracheostomy tube. The patient is comfortable mechanical ventilator. No agitation. Opens up his eyes on continuously. I was told that she is following commands on and off although I wasn't able to elicit that. Motor function is extremely weak in all 4 extremities. HEENT examination is grossly unremarkable. Tracheostomy tube is in place. Neck supple. Full range of motion. No adenopathy thyromegaly or neck vein distention. Midline tracheostomy is noted. Cardiovascular examination Cardiac exam revealed the PMI to be normally situated and sized. The rhythm was regular and no extrasystoles were noted during several minutes of auscultation. The first and second heart sounds were normal and physiologic splitting of the second heart sound was noted. There were no murmurs, rubs, clicks, or gallops. Lungs reveal bilateral expiratory rhonchi and wheezes. No crackles. Breath orlin nds are equal bilaterally. Abdomen soft, without bowel sounds. No masses. PEG tube is noted.Abdominal exam revealed normal bowel sounds. The abdomen was soft, non-tender, and without masses, organomegaly, or appreciable enlargement of the abdominal aorta. Extremities are intact. No cyanosis or clubbing. Trace edema is noted. Skin is without rash or lesion. The patient has a DTI pressure wound in her coccyx. Neurologic examination reveals a very poorly responsive patient, off of all se dation. - Labs CBC & Chem 7: 09/29/21 05:19 09/29/21 05:19 Labs: Abnormal Lab Results - Last 24 Hours (Table) 09/28/21 09/28/21 09/28/21 Range/Units 11:30 17:36 23:44 RBC (3.80-5.40) m/uL Hgb (11.4-16.0) gm/dL Hct (34.0-46.0) % MCV (80.0-100.0) fL Lymphocytes # (1.0-4.8) k/uL ABG pH (7.35-7.45) ABG pO2 (83-108) mmHg ABG HCO3 (21-25) mmol/L ABG Total CO2 (19-24) mmol/L Sodium (137-145) mmol/L BUN (7-17) mg/dL Creatinine (0.52-1.04) mg/dL Glucose (74-99) mg/dL POC Glucose (mg/dL) 160 H 108 H 110 H (75-99) mg/dL AST (14-36) U/L ALT (4-34) U/L Total Protein (6.3-8.2) g/dL Albumin (3.5-5.0) g/dL 09/29/21 09/29/21 09/29/21 Range/Units 05:19 05:19 05:30 RBC 2.82 L (3.80-5.40) m/uL Hgb 9.1 L (11.4-16.0) gm/dL Hct 28.3 L (34.0-46.0) % MCV 100.6 H (80.0-100.0) fL Lymphocytes # 0.9 L (1.0-4.8) k/uL ABG pH 7.48 H (7.35-7.45) ABG pO2 76 L (83-108) mmHg ABG HCO3 32 H (21-25) mmol/L ABG Total CO2 34 H (19-24) mmol/L Sodium 134 L (137-145) mmol/L BUN 22 H (7-17) mg/dL Creatinine 0.36 L (0.52-1.04) mg/dL Glucose 118 H (74-99) mg/dL POC Glucose (mg/dL) (75-99) mg/dL AST 51 H (14-36) U/L ALT 115 H (4-34) U/L Total Protein 5.8 L (6.3-8.2) g/dL Albumin 2.7 L (3.5-5.0) g/dL 09/29/21 Range/Units 05:57 RBC (3.80-5.40) m/uL Hgb (11.4-16.0) gm/dL Hct (34.0-46.0) % MCV (80.0-100.0) fL Lymphocytes # (1.0-4.8) k/uL ABG pH (7.35-7.45) ABG pO2 (83-108) mmHg ABG HCO3 (21-25) mmol/L ABG Total CO2 (19-24) mmol/L Sodium (137-145) mmol/L BUN (7-17) mg/dL Creatinine (0.52-1.04) mg/dL Glucose (74-99) mg/dL POC Glucose (mg/dL) 131 H (75-99) mg/dL AST (14-36) U/L ALT (4-34) U/L Total Protein (6.3-8.2) g/dL Albumin (3.5-5.0) g/dL Assessment and Plan Plan: Acute hypoxemic respiratory failure secondary to coronavirus associated pneumonia, status post intubation and mechanical ventilation on 09/11/2021. Status post tracheostomy and PEG tube placement on 09/23/2021. Chest x-ray findings are stable. Blood gases are stable. She is on a PEEP of 5 with an FiO2 of 35%. Tracheostomy tube is in place. The chest x-ray findings are stable. The patient has limited atelectasis/infiltration of the left lung base. Oxygenation is also stable and the patient is showing some mild metabolic alkalosis on today's blood gas. Otherwise, the chest x-ray findings are essentially stable and the patient is currently off sedation. Acute mental status changes, secondary to toxic/metabolic encephalopathy. The patient remains off sedation for now Methicillin sensitive staph aureus pneumonia, left lower lobe. The patient is currently on Levaquin Dehydration, on admission, resolved. History of seizure disorder. The patient remains on Keppra Prior history of pulmonary embolism. Paroxysmal atrial fibrillation. Current rhythm is sinus and the patient is on oral amiodarone Cardiomyopathy with ejection fraction of 30-35%. Status post pacemaker implantation. 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 Hypothyroidism. CAD. History of CVA in 2007. History of recurrent E. coli urinary tract infections. History of psoriasis. History of sacral/coccygeal decubitus ulcer. DTI Plan: Continue vent support Keep the PEEP down to 5 cm of water We'll check weaning parameters. I did a quick bedside evaluation on the weaning mirabilis. I think the patient is still weak. Nevertheless, I switched her to a pressure support mode of mechanical ventilation and I put her at a pressure support of 14 with a PEEP of 5 and FiO2 of 35%. The patient was able to generate a tidal volume of above 350. She was found to be tachypneic. We'll continue monitoring this patient. Hours and put her back on assist control of there is any significant distress or hemodynamic changes or hypoxemia. Overall, she remains extremely weak, not absolutely ready for any further weaning at this point in time. She may benefit from select specialty transfer. Continue Keppra and tegretol Completed the course of Levaquin, a total of 7 days Complete the course of Eraxis, total of 7 days Discontinued arterial line inserted PICC line Continue wound care Continue Lovenox for DVT prophylaxis Consults select specialty for possible transfer to select specialty for further weaning. Critically care evaluation, more than 30 minutes. Time with Patient: Greater than 30
--- NOTE | 2021-09-29 08:37 | XR ---
EXAMINATION TYPE: XR chest 1V portable DATE OF EXAM: 09/29/2021 COMPARISON: 09/28/2021 HISTORY: SOB, Follow Up FINDINGS: Indwelling tubes and catheters are unchanged. No change in bibasilar opacities. Stable appearance of the cardio-mediastinal structures at this time. Pleural effusion unchanged. IMPRESSION: 1. Stable portable chest. Clinical correlation and follow up until resolution is recommended.
[2021-09-29] MEDS: QUEtiapine 25 MG TAB PO SCH ×2 (10:29→20:32)
[2021-09-29] MEDS: AMIODARONE 200 MG TAB PO SCH (10:29)
[2021-09-29] MEDS: PANTOPRAZOLE 40 MG/10 ML VIAL IV SCH (10:30)
[2021-09-29] MEDS: CHLORHEXIDINE GLUCONATE 15 ML CUP MUCOUS MEM SCH ×2 (10:30→20:32)
[2021-09-29] MEDS: ENOXAPARIN 40 MG/0.4 ML SYRINGE SQ SCH (10:30)
[2021-09-29] MEDS: carBAMazepine 200 MG TAB PO SCH ×3 (10:30→21:40)
[2021-09-29] MEDS: CHOLECALCIFEROL 125 MCG (5000 IU) TABLET PO SCH (10:30)
[2021-09-29] MEDS: LEVOFLOXACIN 500MG-D5W PMX 500 MG in DEXTROSE/WATER 1 100ML.BAG IVPB SCH (10:32)
[2021-09-29] MEDS: levETIRAcetam IV 1,500 MG in SALINE 1 100ML.BAG IVPB SCH ×2 (10:33→20:32)
[2021-09-29 11:54] LABS: Glucose,Whole Blood 158 mg/dL (75-99)
--- NOTE | 2021-09-29 15:19 | P.PN ---
Subjective Progress Note Date: 09/29/21 CHIEF COMPLAINT: COVID-19 pneumonia HISTORY OF PRESENT ILLNESS: Patient remains in the ICU intubated and on mechanical ventilation. Patient is status post tracheostomy and PEG tube placement on 09/23/21. Patient is tolerating tube feedings. Consult placed for select specialty for possible transfer to select specialty for further weaning. PHYSICAL EXAM: VITAL SIGNS: Reviewed. GENERAL:no acute distress. HEENT: Moist buccal mucosa. Head is atraumatic, normocephalic. Tracheostomy site clean dry and intact ABDOMEN: Soft. Nondistended. PEG tube site clean dry and intact NEUROLOGIC: Intubated and sedated ASSESSMENT: 1. Acute hypoxic respiratory failure secondary to COVID-19 pneumonia requiring mechanical ventilation 2. Severe protein calorie malnutrition PLAN: -Continue tube feedings -Continue ICU management -Continue supportive care -Discharge planning and process to select specialty Physician Paper Final Inspector note has been reviewed by physician. Signing provider agrees with the documented findings, assessment, and plan of care. Objective - Vital Signs Vital signs: Vital Signs Temp 98 F 09/29/21 12:00 Pulse 111 H 09/29/21 14:00 Resp 31 H 09/29/21 14:00 BP 143/88 09/29/21 14:00 Pulse Ox 93 L 09/29/21 14:00 Intake & Output 09/28/21 09/29/21 09/29/21 18:59 06:59 18:59 Intake Total 1626 1270 907 Output Total 825 1025 755 Balance 801 245 152 Weight 59.4 kg 56.7 kg 56.7 kg Intake: IV 1030 770 560 .9NS 20 250 220 160 Pressure bag 30 Sodium Chloride 0.45% 1, 650 550 400 000 ml @ 50 mls/hr IV . Q20H [facility] Rx#:[id number] levETIRAcetam IV 1,500 mg 100 In Saline 1 100ml.bag @ 400 mls/hr IVPB Q12HR [facility] Rx#:[id number] Intake, IV Titration 400 Amount Anidulafungin 100 mg In 100 Sodium Chloride 0.9% 100 ml @ 84 mls/hr IVPB DAILY @1700 [facility] Rx#:[id number] Levofloxacin 500Mg-D5w 100 Pmx 500 mg In Dextrose/ Water 1 100ml.bag @ 100 mls/hr IVPB Q24H [facility] Rx#: [id number] Magnesium Sulfate-D5w Pmx 200 1 gm In Dextrose/Water 1 100ml.bag @ 100 mls/hr IVPB Q1H [facility] Rx#: [id number] Tube Feeding 196 410 287 Other 90 60 Output: Urine 825 1025 755 Other: Voiding Method Indwelling Catheter Indwelling Catheter Indwelling Catheter ABP, PAP, CO, CI - Last Documented Arterial Blood Pressure 123/58 - Labs CBC & Chem 7: 09/29/21 05:19 09/29/21 05:19 Labs: Abnormal Lab Results - Last 24 Hours (Table) 09/28/21 09/28/21 09/29/21 Range/Units 17:36 23:44 05:19 RBC (3.80-5.40) m/uL Hgb (11.4-16.0) gm/dL Hct (34.0-46.0) % MCV (80.0-100.0) fL Lymphocytes # (1.0-4.8) k/uL ABG pH (7.35-7.45) ABG pO2 (83-108) mmHg ABG HCO3 (21-25) mmol/L ABG Total CO2 (19-24) mmol/L Sodium 134 L (137-145) mmol/L BUN 22 H (7-17) mg/dL Creatinine 0.36 L (0.52-1.04) mg/dL Glucose 118 H (74-99) mg/dL POC Glucose (mg/dL) 108 H 110 H (75-99) mg/dL AST 51 H (14-36) U/L ALT 115 H (4-34) U/L Total Protein 5.8 L (6.3-8.2) g/dL Albumin 2.7 L (3.5-5.0) g/dL 09/29/21 09/29/21 09/29/21 Range/Units 05:19 05:30 05:57 RBC 2.82 L (3.80-5.40) m/uL Hgb 9.1 L (11.4-16.0) gm/dL Hct 28.3 L (34.0-46.0) % MCV 100.6 H (80.0-100.0) fL Lymphocytes # 0.9 L (1.0-4.8) k/uL ABG pH 7.48 H (7.35-7.45) ABG pO2 76 L (83-108) mmHg ABG HCO3 32 H (21-25) mmol/L ABG Total CO2 34 H (19-24) mmol/L Sodium (137-145) mmol/L BUN (7-17) mg/dL Creatinine (0.52-1.04) mg/dL Glucose (74-99) mg/dL POC Glucose (mg/dL) 131 H (75-99) mg/dL AST (14-36) U/L ALT (4-34) U/L Total Protein (6.3-8.2) g/dL Albumin (3.5-5.0) g/dL 09/29/21 Range/Units 11:53 RBC (3.80-5.40) m/uL Hgb (11.4-16.0) gm/dL Hct (34.0-46.0) % MCV (80.0-100.0) fL Lymphocytes # (1.0-4.8) k/uL ABG pH (7.35-7.45) ABG pO2 (83-108) mmHg ABG HCO3 (21-25) mmol/L ABG Total CO2 (19-24) mmol/L Sodium (137-145) mmol/L BUN (7-17) mg/dL Creatinine (0.52-1.04) mg/dL Glucose (74-99) mg/dL POC Glucose (mg/dL) 158 H (75-99) mg/dL AST (14-36) U/L ALT (4-34) U/L Total Protein (6.3-8.2) g/dL Albumin (3.5-5.0) g/dL
--- NOTE | 2021-09-29 15:56 | CDI ---
Documentation Clarification Form Date: 09/29/2021 03:38:17 PM From: Maddi Jones CCS, CCDS Admit Date: 09/10/2021 02:38:00 PM Patient Name: Hannah Campos Visit Number: [id number] Discharge Date: ATTENTION: The Clinical Documentation Specialists (CDI) and [facility] Coding Staff appreciate your assistance in clarifying documentation. Please respond to the clarification below the line at the bottom and electronically sign. The CDI & [facility] Coding staff will review the response and follow-up if needed. Please note: Queries are made part of the Legal Health Record. If you have any questions, please contact the author of this message via ITS. Dr. Guevara Granados: The following is documented throughout the record beginning with the 09/10 History & Physical and in subsequent Attending Physician Progress Notes: Acute hypoxic respiratory failure Increased inflammatory markers elevated troponin, most likely type II ischemia. Additional clarification regarding the etiology of the Type II Ischemia is requested. Patient History/Risk Factors per the 09/10 H/P: CAD, Paroxysmal Atrial Fibrillation, CHF, CVA with Left side weakness and left foot drop, TIA, Cardiomyopathy, PE and Pneumothorax d/t Pneumonia following a leg fracture, Gestational Diabetes, Bilateral Glaucoma status post surgery, Psoriasis, UTIs, Seizure disorder, Smoker. Clinical Indicators: Presented to the ED on 09/10 with Altered mental status, lethargic, possible seizure and fast heart rate. Had mild focal seizure in ED. Admit with Sepsis, COVID 19, Hypernatremia, Seizure, Dehydration, Atrial Fibrillation, Elevated Troponins, ESTUARDO, Lactic Acidosis. 09/10 VS: T 101, P 154, R 18 - 46, BP 195/59, PO 72 RA - 92 15% nrb, BMI: 19.6 09/10 LAB: Hgb 16.3, Hct 51.8, Neut 9.4, Lymph 0.6; PT 16.7, INR 1.7; Na 164, Chloride 116, BUN 63, Creatinine 1.74, glucose 159, LA 4.6, AST 202, ALT 81. 09/10 ABG: pH 7.34, pCO2 52, HCO3 28, Total CO2 29 09/10 Troponin: 0.331, 0.220 09/10 EKG: R 124 Atrial fibrillation w/RVR, LVH, ST & T wave abnormality, consider lateral ischemia Cardiology Consulted for Atrial Fibrillation: Sinus tachycardia not atrial fibrillation documented on initial 12 lead EKG. Abnormal troponins with this electrolyte arrhythmia, dehydration, acute renal injury. Treatment 09/10: Blood glucose monitoring, Seizure precautions, Ambrocio catheter, O2: nrb, IV Ativan 2 mg x1, 4 mg x1; IV Keppra 1,000 mls/hr x1, IV Na Cl 999 mls/hr q1H, IV Zofran 4 mg x1, IV Na Cl 999 mls/hr q31M, IV Aztreonam 100 mls/hr x1, IV Decadron 6 mg BID, IV Vancomycin 125 mls/hr x1, IV Heparin drip, IV Dextrose 150 mls/hr q6H, Aspirin 300 mg rectal x1, IV Kcl 100 mls/hr q1H Please clarify the following: [ ] Type 2 TX Renal Failure [ x ] Type 2 TX due to Arrhythmia, please specify: [ ] Type 2 TX due to Sepsis [ ] Type 2 TX due to other, please specify: [ ] Other explanation for Type II Ischemia, please specify: [ ] Unable to determine (Template Last Revised: October 2020) MTDD
[2021-09-29] MEDS: CLEVIDIPINE BUTYRATE 25 MG in EMPTY BAG 1 BAG IV SCH (16:08)
[2021-09-29] MEDS: ANIDULAFUNGIN 100 MG in SODIUM CHLORIDE 0.9% 100 ML IVPB SCH (16:26)
[2021-09-29 17:56] LABS: Glucose,Whole Blood 114 mg/dL (75-99)
--- NOTE | 2021-09-29 21:36 | P.PN ---
Subjective Progress Note Date: 09/29/21 Principal diagnosis: Pneumonia pressure ulcer and multiple antibiotic allergies Patient is a 51-year-old female presenting to the hospital on September 10 for mental status changes patient did have a evidence of COVID-19 infection, with respiratory failure requiring intubation also with E. coli UTI and the patient did have multiple antibiotic allergies. The patient is status post tracheostomy and PEG tube placement on 09/23/2021 On today's evaluation that is to to 09/29/2021, patient is afebrile, the patient is hemodynamically stable not requiring pressor support, the patient FiO2 is stable, no purulent secretions through the the ET or diarrhea has been reporte d , patient is slowly waking up after sedation has been cut down Objective - Vital Signs Vital signs: Vital Signs Temp 99.1 F 09/29/21 16:00 Pulse 123 H 09/29/21 19:00 Resp 19 09/29/21 19:00 BP 155/82 09/29/21 19:00 Pulse Ox 95 09/29/21 19:00 Intake & Output 09/29/21 09/29/21 09/30/21 06:59 18:59 06:59 Intake Total 1270 1381 111 Output Total 1025 915 80 Balance 245 466 31 Weight 56.7 kg 56.7 kg Intake: IV 770 840 70 .9NS 20 220 240 20 Sodium Chloride 0.45% 1, 550 600 50 000 ml @ 50 mls/hr IV . Q20H [facility] Rx#:[id number] Tube Feeding 410 451 41 Other 90 90 Output: Urine 1025 915 80 Other: Voiding Method Indwelling Catheter Indwelling Catheter ABP, PAP, CO, CI - Last Documented Arterial Blood Pressure 123/58 - Exam GENERAL DESCRIPTION: Middle-aged male intubated on the vent, no distress. No tachypnea or accessory muscle of respiration use. LUNGS: Unlabored breathing. Decreased breath sound at the base. No wheeze or crackle. HEART: S1, S2, regular rate and rhythm. No loud murmur ABDOMEN: Soft, no tenderness , guarding or rigidity, no organomegaly EXTREMITIES: No edema of feet. - Labs CBC & Chem 7: 09/29/21 05:19 09/29/21 05:19 Labs: Abnormal Lab Results - Last 24 Hours (Table) 09/28/21 09/29/21 09/29/21 Range/Units 23:44 05:19 05:19 RBC 2.82 L (3.80-5.40) m/uL Hgb 9.1 L (11.4-16.0) gm/dL Hct 28.3 L (34.0-46.0) % MCV 100.6 H (80.0-100.0) fL Lymphocytes # 0.9 L (1.0-4.8) k/uL ABG pH (7.35-7.45) ABG pO2 (83-108) mmHg ABG HCO3 (21-25) mmol/L ABG Total CO2 (19-24) mmol/L Sodium 134 L (137-145) mmol/L BUN 22 H (7-17) mg/dL Creatinine 0.36 L (0.52-1.04) mg/dL Glucose 118 H (74-99) mg/dL POC Glucose (mg/dL) 110 H (75-99) mg/dL AST 51 H (14-36) U/L ALT 115 H (4-34) U/L Total Protein 5.8 L (6.3-8.2) g/dL Albumin 2.7 L (3.5-5.0) g/dL 09/29/21 09/29/21 09/29/21 Range/Units 05:30 05:57 11:53 RBC (3.80-5.40) m/uL Hgb (11.4-16.0) gm/dL Hct (34.0-46.0) % MCV (80.0-100.0) fL Lymphocytes # (1.0-4.8) k/uL ABG pH 7.48 H (7.35-7.45) ABG pO2 76 L (83-108) mmHg ABG HCO3 32 H (21-25) mmol/L ABG Total CO2 34 H (19-24) mmol/L Sodium (137-145) mmol/L BUN (7-17) mg/dL Creatinine (0.52-1.04) mg/dL Glucose (74-99) mg/dL POC Glucose (mg/dL) 131 H 158 H (75-99) mg/dL AST (14-36) U/L ALT (4-34) U/L Total Protein (6.3-8.2) g/dL Albumin (3.5-5.0) g/dL 09/29/21 Range/Units 17:55 RBC (3.80-5.40) m/uL Hgb (11.4-16.0) gm/dL Hct (34.0-46.0) % MCV (80.0-100.0) fL Lymphocytes # (1.0-4.8) k/uL ABG pH (7.35-7.45) ABG pO2 (83-108) mmHg ABG HCO3 (21-25) mmol/L ABG Total CO2 (19-24) mmol/L Sodium (137-145) mmol/L BUN (7-17) mg/dL Creatinine (0.52-1.04) mg/dL Glucose (74-99) mg/dL POC Glucose (mg/dL) 114 H (75-99) mg/dL AST (14-36) U/L ALT (4-34) U/L Total Protein (6.3-8.2) g/dL Albumin (3.5-5.0) g/dL Assessment and Plan (1) Pneumonia Current Visit: Yes Status: Acute Code(s): J18.9 - PNEUMONIA, UNSPECIFIED ORGANISM SNOMED Code(s): 389646561 (2) Allergy to multiple antibiotics Current Visit: Yes Status: Acute Code(s): Z88.1 - ALLERGY STATUS TO OTHER ANTIBIOTIC AGENTS SNOMED Code(s): 504634389 (3) COVID-19 Current Visit: Yes Status: Acute Code(s): U07.1 - COVID-19 SNOMED Code(s): 512165203 Plan: 1-Patient with acute respiratory failure which is multifactorial in this patient who did have a covid19 pneumonia and a concern for possible secondary bacterial pneumonia patient With a new fever blood and sputum cultures were done and blood culture has been negative, the patient sputum did grew Radha and MSSA. patient did have a penicillin and cephalosporin ALLERGY, patient is currently covered with Levaquin and Eraxis to continue and monitor clinical course closely 2-patient with unstageable sacral pressure ulcer as well as unstageable pressure ulcer to the upper back area, local wound care with the medahoney followed by moist dressing to keep the area off the pressure Time with Patient: Less than 30
[2021-09-30 00:13] LABS: Glucose,Whole Blood 104 mg/dL (75-99)
[2021-09-30] MEDS: INSULIN ASPART (NovoLOG) 100 UNIT/ML VIAL SQ SCH ×4 (01:19→19:19)
--- NOTE | 2021-09-30 01:41 | P.PN ---
Subjective Progress Note Date: 09/29/21 This is a pleasant 51 years old female with past medical history of Coronary Artery Disease, Heart Failure, CVA/TIA, Pulmonary Embolus (PE), Seizure Disorder, Last seizure 2009, CVA 2007 with L sided weakness arm and leg and has L foot drop, TIA 2018, cardiomyopathy, R PE and pneumothorax/pneumonia following leg fracture in 1994, gestational diabetes with all pregnancies , bilateral glaucoma with surgery, psoriasis in the past, UTIs. She is a status post Pacemaker, history of Bilateral eye surgery for glaucoma, Anxiety, Depression, Current every day smoker Patient presents because of altered mental status. Information was limited from the patient. It was obtained from the chart and medical staff. Also as per family patient was able to go to the bathroom, was more lethargic and tired over the last day. While in the emergency room focal mild seizure is noticed On admission patient had and fever of 101. She is tachypneic at 26-40, tachycardic 110-140, also she is hypoxic saturating 72% on room air Labs showing WBC of 10.5, hemoglobin of 16.3, platelet count of 197. INR 1.7. Sodium 164, creatinine 1.7, lactic acid elevated 4.6. Liver enzymes elevated with AST 202 and ALT 81. Bilirubin is normal at 1.3. Urine analysis is highly suspicious of infection Urine drug screen is negative Cash versus positive Chest x-ray showing left perihilar and left lower lobe area of infiltrate and small effusion correlates for pneumonia CT of the brain without contrast showing no intracranial hemorrhage, evidence of remote ischemic change. However there is vague low attenuation near the left thalamus and left cerebral peduncle. Acute ischemia in the differential diagnosis. Recommend stat MRI of brain with MRSA [place] of [place] as clinically warranted. In the emergency room patient was started on aztreonam and IV vancomycin, Keppra and heparin drip 09/11/2021 Patient today was still in the ICU, she was very weak and obtunded, she will wake up to certain stabilized and moans, she does not follow commands she cannot, gait she moved both extremities symmetrically. R on she had collapse of her left lung cancer and she has to be intubated and repeat chest x-ray showing better. A of the left lung. She is tachypneic with a breathing rate 22, no more fever since yesterday. Her sodium improved down to 144 and she was started on normal saline, creatinine 1.1, Ejection fraction showed 30-35% which is slice worsened from 06/2021 where it was 35-40% She remains on dexamethasone, IV vancomycin and clindamycin, heparin drip, Keppra and normal saline at 75 mL/h 09/12/2021 Patient with respiratory failures and she was intubated and placed on mechanical ventilation with pulmonary/critical care team following her mostly. There is no more seizure-like activity noticed. She still tachypneic with a breathing rate of 32 blood pressure 100/70, she is needing FiO2 of 80% and PEEP of 20. She has no more fevers since admission. Urine culture is growing gram-negative bacilli. Sodium is 146, WBCs is increased at 16.5 K. PH showing acidosis with 7.1 and elevated pCO2 at 83. Chest x-ray showing left sided opacities with near full. A of the left lung. Patient kept on antibiotics in the form of clindamycin and Levaquin and fluconazole. Also she remains on dexamethasone, and so a heparin to Lovenox. Also continued on seizure medication 1500 mg twice a day and IV fluids per pulmonary team. Neurology team on the case 09/13/2021 Patient remains intubated and sedated with pulmonary/critical care team following her closely. Her PEEP is lower today to 18. She remains on FiO2 of 50%. She is tachypneic at 32 about blood pressure is controlled. Her inflammatory markers are increased to LDH of 1009 and CRP of 25.1. Bicarb is elevated at 31 WBC is 17.7, sodium improved to 142. Creatinine improved to 0.6. Chest x-ray showed improving left lung infiltrate. PH is improved slightly 7.2 with pCO2 is slightly better at 79. Urine culture is growing E. coli which is sensitive to the antibiotics. Currently patient is covered with clindamycin, Levaquin and fluconazole. Also she is on dexamethasone 6 mg, Keppra 1500 mg and half-normal saline at 50 mL per hour Anticoagulation switch from heparin drip and to Lovenox 09/14/2021 Patient still intubated and sedated on mechanical ventilation with pulmonary/critical care team following her closely and just her vent setting. Today her FiO2 of 55%, and she is tachypneic at 33 breath per minute. Labs showing stable findings with sodium 141, creatinine 0.8, liver enzymes slightly elevated, LDH slightly down at 797 and CRP 2-3.2. Same leukocytosis at 14.7. Her pH is 7.2 and carbon dioxide is 82. D-dimer mildly elevated at 0.9, just x-ray showing bilateral infiltrate with no significant change from prior. She remains on the same antibiotic of clindamycin, Levaquin, dexamethasone, Keppra 1500 mg and half normal saline at 50 mL/h 09/15/2021 Patient in the ICU intubated and sedated, with pulmonary/critical care team following closely. FiO2 still 50%, hemodynamically showing both staple blood pressure 101/40, patient is tachypneic more than 30 per minutes. PEEP is lower. wbc of 11.3, hemoglobin 9.4, sodium 140, creatinine 0.8. chest x-ray: mild worsening infiltrate in the left lobe. patient continued with the same treatment of clindamycin, levaquin, dexamethasone, keppra and she received 1 l of normal saline today. 09/16/2021 Patient is seen and evaluated and follow-up continues to be closely monitored in the ICU. Multiple medical consultations following including infectious disease, pulmonary mailroom associate, and neurology. Patient continues on mechanical vent with an FiO2 of 50% and PEEP is 10. Weaning is being continued and PEEP is being titrated down to 8. Patient continues with sedation holidays and very minimal propofol and patient is now off Nimbex and very minimal stimulus noted. Patient response to painful stimulus minimally. Plan is for possible CT of the brain repeat this afternoon. Patient also being closely monitored for continued seizures of which she does have a past medical history of. Patient is also Covid positive and infectious disease is following and patient is maintained on clindamycin along with Levaquin. Chest x-ray today shows correlate for left lower lobe pneumonia versus atelectasis with possible associated effusion. 09/17/2021 Patient is seen in follow-up this morning closely monitored in the ICU. Neurology also following and patient is maintained on IV Keppra. Patient also continues on IV antibiotics in the form of aztreonam and clindamycin with infectious disease following. Patient urine culture showing E. coli. Chest x- ray today shows chronic emphysematous changes with left basilar acute infiltrate and/or atelectasis and likely small left pleural effusion all redemonstrated with no significant change from previous day. Neurology following And okay to resume anticoagulant as there is no evidence of new intracranial process or hemorrhage. Patient is off sedation and continues to be unresponsive. 09/18/2021 Patient is evaluated again this morning and continues to be in the ICU on mechanical vent and being closely monitored. FiO2 is at 45% and PEEP is 8. Patient continues to be off sedation with no response for over 24 hours. Neurology following as well and have discussed overall prognosis with family and family discussing with other family members about CODE STATUS and treatment plan moving forward. Infectious disease also following and patient is maintained on IV Levaquin along with clindamycin and aztreonam and will continue. Urine cultures finalized showing E. coli and sputum culture preliminary is pending at this time. 09/19/2020 Patient evaluated today in the ICU on mechanical ventilation. Fi02 at 45% with a PEEP of 8. Propofol infusing, Nimbex and Levophed are currently on hold. Pr ecedex discontinued. There has been no response, and mental status is not improving. Still no response to verbal stimuli. Patient is being followed closely by neurology for this and is on IV keppra and tegretol. EEG consistant with toxic metabolic encepholapthy. Repeat chest xray today shows similar opacities given patient rotation. Stable support tubes. Mild pulmonary vascular congestion correlate with serum BNP. Blood cultures negative, pending finalized, sputum negative so far. Labs reviewed today: WBC 9.2, hgb 10.3, sodium 138, potassium 3.8, BUN 33, Cr 0.76, glucose in the 110's, calcium 7.9, AST 250, ALT 78, Albumin 2.3. Vitals reviewed: Temp 97.4, HR 126, RR 44, Blood pressure 113/80, 96% oxygen saturation on mechanical ventilation. 09/20/2021 Patient evaluated in ICU on mechanical ventilation with an Fi02 of 45%, PEEP of 12. Chest xray today shows left lower lobe atelectasis versus pneumonia with similar findings as previous. BNP yesterday 12,500, however xray reviewed and d oes not appear to be showing heart failure. She is in negative fluid balance. Status was addressed with family by neurology who is awaiting a phone call back. White count 12.8, RBC 3.5, sodium 137 potassium 3.8, chloride 101, CO2 33, BUN 35, creatinine 0.68, blood sugars in the 120s, AST 424, ALT 115, alk phos 63. Running temps today 100.8, heart rate 123, respiratory rate 36, blood pressure 95/65, oxygen saturation of 93-94%. Blood pressures are on the softer side 88/55. Current infusions include propofol which has been resumed as patient has not shown any signs of neurological improvement while on a propofol break. 09/21/2021 Patient is seen in follow up today and continues to be on mechanical vent with an FI02 of 45% with a peep of 8 and multiple medical consultations following. Ch est xray similar from previous with copd and continued focal basilar left lower lobe retrocardiac consolidation or atelectasis. Patient is on propofol and general surgery has been consulted for peg and trach placement. Plan for surgery is tomorrow. 09/22/2021 Patient is seen and evaluated in follow-up this morning continues on mechanical ventilation with a PEEP of 8 and FiO2 is 45%. General surgery following an plan is for PEG and trach placement today due to prolonged mechanical ventilation and no improvements or weaning from the vent. Patient continues on tube feeding along with Lovenox which is currently on hold for the surgical procedure. Patient's chest x-ray today shows diffuse bilateral infiltrates that are stable with no pneumothorax or pleural effusion noted. Patient also had gallbladder ultrasound secondary to elevated liver functions and shows hepatomegaly otherwise unremarkable. Patient is continued on antifungal's along with vancomycin and infectious disease following closely. Sputum cultures preliminary showing Radha glabrata and Staphylococcus aureus and most recent blood cultures have been negative. 09/23/2021 Patient is seen in follow-up this morning and patient was unable to receive PEG and trach with general surgery following yesterday and plan is for today. Patient continues on mechanical vent and FiO2 is 45% with a PEEP of 8. Lovenox and tube feeding currently on hold. Chest xray reviewed and no acute changes from yesterday. Continues to be unresponsive. Prognosis remains poor. 09/24/2021 Patient is seen this morning status post PEG and trach placement and is resuming tube feedings with general surgery following. Patient continues on mechanical vent with an FiO2 of 40% and PEEP is 8. Per nursing staff working on weaning sedation and assessing neuro status. Continues with being obtunded and no purposeful movements noted. Chest xray shows COPD with improvement in previous left pleural effusion with mild patchy infiltrates/retrocardiac atelectasis noted. 09/25/2021 Patient is seen and evaluated today continues to be in the ICU on mechanical ventilation and continues on sedation with attempts at weaning. FI02 is 40% and peep of 8. Multiple medical consultations following. Plan is for repeat ct of the brain sometime this afternoon. Per nursing staff patient is tolerating tube feeds. Chest xray today shows suboptimal study due to positioning and unable to exclude some worsening atelectasis or infiltrate. 09/26/2021 Patient is in the MICU. Status post tracheostomy and PEG tube placement on 09/23/2021 remains on mechanical ventilator. FiO2 40% and PEEP of 8. Patient remains unresponsive and does not follow simple commands. Repeat CT done on 09/25/2021 showed findings consistent with cerebrovascular infarction bilaterally. May be indicative of otitis media bilaterally. No acute brain abnormality evident. Patient is being continued antibiotics in the form of Levaquin and Eraxis per bacterial pneumonia and sputum cultures growing Radha and staph aureus. Laboratory data showed WBC 8.7 hemoglobin 8.8 and platelets 330 Sodium 138 potassium 3.6 chloride 102 bicarb is 34 BUN 2020 creatinine 0.38 and calcium 8.4 Patient is being continued antibiotics and antiepileptic medications. Pulmonary, neurology and ID is on board. 09/27/2021 Patient is in the MICU. Status post tracheostomy and PEG tube placement and mechanical ventilator. Patient is off sedation. Currently on assist control with tidal volume 325 FiO2 35% and PEEP of 8. Patient remains obtunded and does not follow simple commands. Chest x-ray showed improvement in the opacity in the obscuring the left hemidiaphragm on the prior study. Most likely represents decreasing small pleural effusion Laboratory showed WBC 8.3 hemoglobin 9.5 platelets 102 sodium 138 potassium 4.0 chloride 103 bicarb is 31 BUN 2020 creatinine 0.45 calcium 8.8 patient is being current on antibiotics in the form of Levaquin and Eraxis. Decadron has been discontinued. 09/28/2021 Patient continues to be closely monitored in the ICU with multiple medical consultations following. Current FiO2 is 35% and PEEP is 5. She is off sedation. Per nursing staff, patient did squeeze her right hand although unresponsive on exam. Patient chest xray shows chronic emphysematous change with left basilar acute infiltrate and or atelectasis and likely small left pleural effusion are all redemonstrated with no significant change from one day earlier. Patient continues on tube feeding and tolerating. Social work following and working on placement. Peer to Peer for insurance required. Patient also continues on Levaquin and antifungal for MSSA and radha glabrata in the sputum. Continue local wound care. 09/29/2021 Patient is seen and evaluated this morning continues to be closely monitored in the ICU. Patient remains off sedation and continues on mechanical ventilation via tracheostomy with an FiO2 of 35% and PEEP is 5. Pulmonary mailroom associate following closely and continuing to wean and evaluating weaning parameters with possible attempts at trach collar. Patient is extremely lethargic although opening eyes and responding to commands appropriately and nodding yes and no appropriately to questions and commands. Patient continues to be flaccid on the left side although is able to squeeze writers hands this morning on the right and follow commands. Patient continues on anidulafungin along with IV Levaquin with infectious disease following closely. Patient tolerating tube feedings and will continue. Review of systems: Constitutional: reports of fatigue, no reports of fever, or chills Cardiovascular: No reports of chest pain or palpitations Respiratory: No reports of shortness of breath or cough GI: No reports of nausea, vomiting, or diarrhea : No reports of dysuria or retention Neurovascular: Patient is extremely weak although moving right hand and blinking and nodding appropriately to questions and commands and able to squeeze right epps nd with a 3/5 geriatric physical therapist strength Labs: WBC is 6.0, hemoglobin is 9.2, platelets are 365, d-dimer 6.46, sodium is 136, potassium 3.6, BUN 27, creatinine 0.4 to come a calcium is 8.5, magnesium 1.6, AST 95, ALT 163 Active Medications Acetaminophen (Acetaminophen Tab 325 Mg Tab) 650 mg PO Q6HR PRN PRN Reason: Fever and/ or Pain Last Admin: 09/21/21 23:30 Dose: 650 mg Documented by: Amiodarone HCl (Amiodarone 200 Mg Tab) 200 mg PO DAILY [facility] Last Admin: 09/29/21 10:29 Dose: 200 mg Documented by: Artificial Tears (Artificial Tears-Hypromellose Drops 15 Ml Btl) 1 drops BOTH EYES QID PRN PRN Reason: Dry Eye(s) Last Admin: 09/16/21 08:58 Dose: 1 drops Documented by: Carbamazepine (Carbamazepine 200 Mg Tab) 200 mg PO TID [facility] Last Admin: 09/29/21 10:30 Dose: 200 mg Documented by: Chlorhexidine Gluconate (Chlorhexidine Gluconate 15 Ml Cup) 15 ml MUCOUS MEM BID [facility] Last Admin: 09/29/21 10:30 Dose: 15 ml Documented by: Cholecalciferol (Cholecalciferol 125 Mcg (5000 Iu) Tablet) 125 mcg PO DAILY [facility] Last Admin: 09/29/21 10:30 Dose: 125 mcg Documented by: Enoxaparin Sodium (Enoxaparin 40 Mg/0.4 Ml Syringe) 40 mg SQ DAILY [facility] Last Admin: 09/29/21 10:30 Dose: 40 mg Documented by: Hydromorphone HCl (Hydromorphone 1 Mg/Ml 1 Ml Syringe) 1 mg IVP Q2H PRN PRN Reason: Pain Last Admin: 09/29/21 10:31 Dose: 1 mg Documented by: Levetiracetam 1,500 mg/ IV (Solution) 100 mls @ 400 mls/hr IVPB Q12HR [facility] Last Admin: 09/29/21 10:33 Dose: 400 mls/hr Documented by: Sodium Chloride (Saline 0.45%) 1,000 mls @ 50 mls/hr IV .Q20H [facility] Last Admin: 09/29/21 03:26 Dose: 50 mls/hr Documented by: Anidulafungin 100 mg/ Sodium (Chloride) 130 mls @ 84 mls/hr IVPB DAILY@1700 [facility] Last Admin: 09/28/21 16:08 Dose: 84 mls/hr Documented by: Propofol 1,000 mg/ IV Solution 100 mls @ 0 mls/hr IV .Q0M [facility]; Protocol Last Titration: 09/24/21 11:28 Dose: 0 mcg/kg/min, 0 mls/hr Documented by: Levofloxacin 500 mg/ IV (Solution) 100 mls @ 100 mls/hr IVPB Q24H [facility] Last Admin: 09/29/21 10:32 Dose: 100 mls/hr Documented by: Clevidipine 25 mg/ IV Solution 50 mls @ 2 mls/hr IV .Q24H [facility]; Protocol Last Admin: 09/28/21 15:38 Dose: Not Given Documented by: Insulin Aspart (Insulin Aspart (Novolog) 100 Unit/Ml Vial) 0 unit SQ Q6H [facility]; Protocol Last Admin: 09/29/21 14:50 Dose: 1 unit Documented by: Miscellaneous Information (Potassium Replacement Protocol 1 Each Misc) 1 each MISCELLANE DAILY PRN; Protocol PRN Reason: Per Protocol Miscellaneous Information (Magnesium Replacement Protocol 1 Each Misc) 1 each MISCELLANE DAILY PRN; Protocol PRN Reason: Per Protocol Naloxone HCl (Naloxone 0.4 Mg/Ml 1 Ml Vial) 0.2 mg IV Q2M PRN PRN Reason: Opioid Reversal Pantoprazole Sodium (Pantoprazole 40 Mg/10 Ml Vial) 40 mg IV DAILY [facility] Last Admin: 09/29/21 10:30 Dose: 40 mg Documented by: Quetiapine Fumarate (Quetiapine 25 Mg Tab) 25 mg PO BID [facility] Last Admin: 09/29/21 10:29 Dose: 25 mg Documented by: Physical exam: GENERAL: The patient is intubated and sedated, FiO2 is 35% and PEEP is 5 HEENT: Pupils are round and equally reacting to light. EOMI. No scleral icterus. No conjunctival pallor. Normocephalic, atraumatic. No pharyngeal erythema. No thyromegaly. CARDIOVASCULAR: S1 and S2 present. No murmurs, rubs, or gallops. PULMONARY: diminished breath sounds bilaterally with coarse rhonchi noted ABDOMEN: Soft, nontender, nondistended, normoactive bowel sounds. No palpable organomegaly. MUSCULOSKELETAL: No joint swelling or deformity. EXTREMITIES: No cyanosis, clubbing, or pedal edema. NEUROLOGICAL: unresponsive, remains off sedation SKIN: No rashes. no petechiae. Assessment: Altered mental status could be metabolic/toxic encephalopathy, ruled out other intracranial lesions, and possibly secondary to seizure Acute hypoxic respiratory failure secondary to COVID-19 pneumonia requiring mechanical ventilation status post peg tube and tracheostomy placement Left lower lobe pneumonia, rule out aspiration pneumonia Acute urinary tract infection, present on admission with culture showing E. coli Sepsis secondary to UTI and pneumonia Breakthrough seizure Bilateral interstitial Covid 19 pneumonia Increased inflammatory markers elevated troponins on admission, most likely type II ischemia secondary to acute kidney injury and possibly secondary to electrolyte abnormalities. Cardiomyopathy with most recent EF of 30-35% Hypernatremia, improved Acute kidney injury, improved Mild elevated liver enzymes History of coronary artery disease History of pulmonary embolism History of seizure disorder, last seizure was in 2009 as per documents History 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 left foot drop History of glaucoma status post surgery Status post permanent pacemaker Nicotine dependence GI prophylaxis DVT prophylaxis Full code Plan: This is a pleasant 51 years old female who presented with altered mental status, pneumonia, UTI, possible stroke although most likely old infarcts noted on CT, seizure and positive for covid pneumonia patient was intubated and continues on mechanical ventilation with a FiO2 of 35% and PEEP is 5. Patient is status post PEG and trach placement recently from prolonged mechanical ventilation. Attempted peer to peer review with insurance and was denied for transfer to LTAC at this time as patient needs reevaluation by neurology given patient is now more responsive and off sedation, continued PT/OT therapy notes and will have PT/OT see daily, and requiring more documentation on the weaning attempts and trials as they feel patient is not stable to move to LTAC at this time to continue vent weaning. Will discuss with pulmonary, PT/OT, neurology, and social work about treatment plan moving forward. Continue with Keppra and neurology following and will ask for neuro to reevaluate the patient. pulmonary and infectious disease following, continue the broad-spectrum antibiotics in the form of levaquin along with antifungals Continue with vitamin and zinc supplements along with Lovenox Overall Prognosis remains extremely guarded Social work following and working on possible LTAC and peer to peer denied and w ill discuss further with consultations about treatment plan moving forward. Will continue to monitor closely. Objective - Vital Signs Vital signs: Vital Signs Temp 99 F 09/29/21 04:00 Pulse 117 H 09/29/21 07:00 Resp 32 H 09/29/21 07:00 BP 152/98 09/29/21 07:00 Pulse Ox 92 L 09/29/21 07:00 Intake & Output 09/28/21 09/29/21 09/29/21 18:59 06:59 18:59 Intake Total 1626 1270 70 Output Total 825 1025 100 Balance 801 245 -30 Weight 59.4 kg 56.7 kg Intake: IV 1030 770 70 .9NS 20 250 220 20 Pressure bag 30 Sodium Chloride 0.45% 1, 650 550 50 000 ml @ 50 mls/hr IV . Q20H [facility] Rx#:[id number] levETIRAcetam IV 1,500 mg 100 In Saline 1 100ml.bag @ 400 mls/hr IVPB Q12HR [facility] Rx#:[id number] Intake, IV Titration 400 Amount Anidulafungin 100 mg In 100 Sodium Chloride 0.9% 100 ml @ 84 mls/hr IVPB DAILY @1700 [facility] Rx#:[id number] Levofloxacin 500Mg-D5w 100 Pmx 500 mg In Dextrose/ Water 1 100ml.bag @ 100 mls/hr IVPB Q24H [facility] Rx#: [id number] Magnesium Sulfate-D5w Pmx 200 1 gm In Dextrose/Water 1 100ml.bag @ 100 mls/hr IVPB Q1H [facility] Rx#: [id number] Tube Feeding 196 410 Other 90 Output: Urine 825 1025 100 Other: Voiding Method Indwelling Catheter Indwelling Catheter ABP, PAP, CO, CI - Last Documented Arterial Blood Pressure 123/58 - Labs CBC & Chem 7: 09/29/21 05:19 09/29/21 05:19 Labs: Abnormal Lab Results - Last 24 Hours (Table) 09/28/21 09/28/21 09/28/21 Range/Units 11:30 17:36 23:44 RBC (3.80-5.40) m/uL Hgb (11.4-16.0) gm/dL Hct (34.0-46.0) % MCV (80.0-100.0) fL Lymphocytes # (1.0-4.8) k/uL ABG pH (7.35-7.45) ABG pO2 (83-108) mmHg ABG HCO3 (21-25) mmol/L ABG Total CO2 (19-24) mmol/L Sodium (137-145) mmol/L BUN (7-17) mg/dL Creatinine (0.52-1.04) mg/dL Glucose (74-99) mg/dL POC Glucose (mg/dL) 160 H 108 H 110 H (75-99) mg/dL AST (14-36) U/L ALT (4-34) U/L Total Protein (6.3-8.2) g/dL Albumin (3.5-5.0) g/dL 09/29/21 09/29/21 09/29/21 Range/Units 05:19 05:19 05:30 RBC 2.82 L (3.80-5.40) m/uL Hgb 9.1 L (11.4-16.0) gm/dL Hct 28.3 L (34.0-46.0) % MCV 100.6 H (80.0-100.0) fL Lymphocytes # 0.9 L (1.0-4.8) k/uL ABG pH 7.48 H (7.35-7.45) ABG pO2 76 L (83-108) mmHg ABG HCO3 32 H (21-25) mmol/L ABG Total CO2 34 H (19-24) mmol/L Sodium 134 L (137-145) mmol/L BUN 22 H (7-17) mg/dL Creatinine 0.36 L (0.52-1.04) mg/dL Glucose 118 H (74-99) mg/dL POC Glucose (mg/dL) (75-99) mg/dL AST 51 H (14-36) U/L ALT 115 H (4-34) U/L Total Protein 5.8 L (6.3-8.2) g/dL Albumin 2.7 L (3.5-5.0) g/dL 09/29/21 Range/Units 05:57 RBC (3.80-5.40) m/uL Hgb (11.4-16.0) gm/dL Hct (34.0-46.0) % MCV (80.0-100.0) fL Lymphocytes # (1.0-4.8) k/uL ABG pH (7.35-7.45) ABG pO2 (83-108) mmHg ABG HCO3 (21-25) mmol/L ABG Total CO2 (19-24) mmol/L Sodium (137-145) mmol/L BUN (7-17) mg/dL Creatinine (0.52-1.04) mg/dL Glucose (74-99) mg/dL POC Glucose (mg/dL) 131 H (75-99) mg/dL AST (14-36) U/L ALT (4-34) U/L Total Protein (6.3-8.2) g/dL Albumin (3.5-5.0) g/dL
[2021-09-30] MEDS: HYDROmorphone 1 MG/ML 1 ML SYRINGE IVP PRN ×3 (03:03→09:26)
[2021-09-30] MEDS: SODIUM CHLORIDE 0.45% 1,000 ML IV SCH ×2 (03:40→21:55)
[2021-09-30 05:54] LABS: Glucose,Whole Blood 124 mg/dL (75-99)
[2021-09-30 06:07] LABS: ABG Base Excess 9.2 mmol/L; ABG HCO3 32 mmol/L (21-25); ABG Oxygen Saturation 96.5 % (94-97); ABG PCO2 41 mmHg (35-45); ABG PO2 81 mmHg (83-108); ABG TCO2 34 mmol/L (19-24); Allen Test Performed? Yes
[2021-09-30] MEDS: CLEVIDIPINE BUTYRATE 25 MG in EMPTY BAG 1 BAG IV SCH (08:00)
--- NOTE | 2021-09-30 08:19 | XR ---
EXAMINATION TYPE: XR chest 1V portable DATE OF EXAM: 09/30/2021 Comparison: 09/29/2021 Clinical History: 51 year-old female shortness of breath Findings: Tracheostomy cannula. Left anterior chest wall AICD generator with right ventricular lead. Heart norm al size. Continued retrocardiac and left basilar opacity. Hyperinflation. Impression: COPD and continued small left pleural effusion with left basilar retrocardiac atelectasis and/or cons olidation.
[2021-09-30 08:25] LABS: Basophils % (A) 0 %; Eosinophils # (A) 0.1 k/uL (0-0.7); Eosinophils % (A) 1 %; HCT 28.6 % (34.0-46.0); HGB 9.1 gm/dL (11.4-16.0); Hypochromasia Slight; Lymphocytes % (A) 15 %; MCH 32.8 pg (25.0-35.0); MCHC 31.9 g/dL (31.0-37.0); MCV 102.9 fL (80.0-100.0); Macrocytosis Slight; Mean Platelet Volume 7.7; Monocytes # (A) 0.4 k/uL (0-1.0); Monocytes % (A) 6 %; Neutrophils % (A) 75 %; Platelet Count 283 k/uL (150-450); RBC 2.78 m/uL (3.80-5.40); RDW 15.1 % (11.5-15.5); WBC 6.6 k/uL (3.8-10.6)
[2021-09-30 08:47] LABS: ALT 94 U/L (4-34); AST 50 U/L (14-36); African American GFR (CKD) >90 (>60 ml/min/1.73 sqM); Alkaline Phosphatase 68 U/L (38-126); Anion Gap 7 mmol/L; Blood Urea Nitrogen 23 mg/dL (7-17); Calcium 8.9 mg/dL (8.4-10.2); Carbon Dioxide 29 mmol/L (22-30); Chloride 101 mmol/L (98-107); Glucose 125 mg/dL (74-99); Non-African American GFR(CKD) >90 (>60 ml/min/1.73 sqM); Sodium 137 mmol/L (137-145); Total Bilirubin 0.6 mg/dL (0.2-1.3); Total Protein 6.4 g/dL (6.3-8.2)
--- NOTE | 2021-09-30 09:05 | P.PN ---
Subjective Progress Note Date: 09/30/21 This is a 51-year-old female patient with established COVID 19 related pneumonia, prolonged respiratory failure, was currently in the intensive care unit being seen for a follow-up. 09/28/2021, the patient is being seen for a follow-up. She is on a mechanical ventilator. The chest and the tumors are diminished sense and for prolonged respiratory failure. This morning, the patient at the rate of 30 to assist- control mode with a tidal volume of 325, FiO2 of 35% and a PEEP of 8. She has a Bivona tracheostomy tube #8. Note that the patient has been off sedation since 09/24/2021. Neurologically, she is still unresponsive. She is not following any commands. The patient opens up her eyes spontaneously. She grimaces to painful stimulation. She is quite comfortable in a mechanical ventilator. She is hemodynamically stable on no pressors. She is receiving enteral feeding for nutritional support in the form of vital AF at the rate of 57 mL an hour. She is also on half-normal saline today to 50 mL an hour. She has a triple lumen catheter in her right femoral vein. She is also done and arterial line that is nonfunctioning. Her blood work today shows a pH of 7.44 with a pCO2 of 46 and pO2 of 73. White cell count and 6 with a hemoglobin of 9.2 and a platelet count of 364. Sodium is at 136. Normal renal function with a mean of 27 and a creatinine of 0.4. LFTs are slightly abnormal with an AST of 95, ALT of 163, albumin is at 2.7. Chest x-ray was done today and it shows adequate positioning of the Bivona tracheostomy tube which is around 2 cm above the polo. The patient has a defibrillator in place. Patient also has some left lower lobe atelectasis and some limited perihilar pulmonary infiltrates left more than right. Note that her chest x-ray findings have been stable for the past several days. In terms of treatment, the patient is on Lovenox 40 mg subcu for DVT prophylaxis. The patient is on no steroids. Antibiotic coverage includes a combination of Levaquin and Eraxis for presence of Radha glabrata in the sputum. The patient's cardiac rhythm is sinus. The patient is on amiodarone maintenance on milligrams on a daily basis. The patient is still on Keppra 1.5 g every 12 hours. No seizure activity has been noted. The patient is currently off Cleviprex Infusion. 09/29/2021, the patient is being seen for a follow-up. She is a case of COVID D related pneumonia with prolonged respiratory failure. The patient remains on a mechanical ventilator. This morning, she is on no sedation. She is an assist- control mode of mechanical ventilation with a tidal volume of 325, FiO2 is at 35%, PEEP is at 5 and rate is at 26. The morning blood gases showed a pH of 7.48 with a pCO2 of 44 and pO2 of 76. The chest x-ray from today was reviewed and it showed stable findings. Tracheostomy tube remains in a good location. No evidence of pneumothorax. The patient has a defibrillator/pacemaker or the left anterior chest area. Atelectatic changes and small effusion still seen in the left lung base. The patient has a #[address] in [address]. No significant orotracheal secretions. She is arousable. She communicates. The plan is ultimately to transfer this patient to select specialty. She was interactive today and she was grimacing to painful stimulation. She was unable to carry a conversation yet. The patient remains on broad-spectrum antibiotics per she is on a combination of Levaquin and Eraxis. Levaquin is 4 MSSA in her sputum and Eraxis as for Radha breath and her sputum. The patient remains afebrile. She is hemodynamically stable. The white cell count is at 6.7 with a hemoglobin of 9.1, both are being stable. Leonor to stable, sodium is at 134 with a potassium level of 4.0, BUN is at 22 with a creatinine of 0.3. LFTs are slightly elevated and the patient continues to have a mild component of transam initis. In addition to the current antibiotic coverage, the patient is on Keppra for seizures in combination with Tegretol, IV Protonix for GI prophylaxis, Lovenox 40 mg subcu for DVT prophylaxis. The patient has completed course of steroids. The cardiac rhythm remains sinus. The patient remains on amiodarone 200 mg by mouth once a day. 09/30/2021, the patient is being seen for a follow-up. She is currently off sedation and she has been taken off sedation since 09/24/2021. Overnight, the patient remained off sedation and she is on a mechanical ventilator on assist control mode at the rate of 32, tidal volume of 325, FiO2 of 30% with a PEEP of 5. Chest x-ray from today shows some limited atelectatic changes and small effusion the left lung base. Otherwise no other acute abnormalities. The peak airway pressures around 25. The blood gases from today shows a pH of 7.5 with a pCO2 of 41 and pO2 of 81. She is a bit tachypneic. No signs of any significant respiratory distress patient opens her eyes spontaneously. Slow in responding. Nevertheless, the patient opens up her eyes. She is sluggish and responses. Nevertheless, she was able to use her hand and the Nascimento squeeze. Lower extremity is extremely weak. I believe there is a previous history of CVA with some residual weakness on the left upper extremity. No seizure activity has been noted. She is resting comfortably. She is a bit tachypneic and for that reason I made some ventilator adjustments. I give a try with a higher tidal volume. The patient continued to be. Subsequently, I tried a pressure support mode of mechanical ventilation and the patient generated tidal volume remained low and the patient continued to be tachypneic. Based on that, I will switch this patient to a pressure control mode of mechanical ventilation. Her blood pressure is fluctuating. She did have a acute hypertensive reaction and the patient was started on Cleviprex which is running at 4 mg an hour. She continued to receive enteral feeding for nutritional support and the patient is currently on vital AF at the rate of 41 mL an hour. The patient is also on Keppra and Tegretol for history of seizures. She is on Lovenox for DVT prophylaxis 40 mg subcu on a daily basis. Her echocardiogram was done earlier and the patient was found to have an impaired left ventricular ejection fraction of around 30-35%. The patient is having frequent PVCs on the secured entrance monitor. Blood work from today is showing a white cell count of 6.6 with a hemoglobin of 9.1. The rest of the electrolytes show a sodium of 137, potassium is at 4, BUN is at 23 with a creatinine of 0.3. Potassium level is at 4. There is a mild component of transaminitis. The bilirubin is at 0.6. Total protein is at 6.4 with an albumin level of 3.0. Objective - Vital Signs Vital signs: Vital Signs Temp 98.8 F 09/30/21 04:00 Pulse 106 H 09/30/21 07:00 Resp 34 H 09/30/21 07:00 BP 187/97 09/30/21 07:00 Pulse Ox 94 L 09/30/21 07:00 Intake & Output 09/29/21 09/30/21 09/30/21 18:59 06:59 18:59 Intake Total 1381 1462 111 Output Total 915 1310 100 Balance 466 152 11 Weight 56.7 kg 58 kg Intake: IV 840 940 70 .9NS 20 240 240 20 Sodium Chloride 0.45% 1, 600 600 50 000 ml @ 50 mls/hr IV . Q20H ADDIE Rx#:[id number] levETIRAcetam IV 1,500 mg 100 In Saline 1 100ml.bag @ 400 mls/hr IVPB Q12HR ADDIE Rx#:[id number] Tube Feeding 451 492 41 Other 90 30 Output: Urine 915 1310 100 Other: Voiding Method Indwelling Catheter Indwelling Catheter ABP, PAP, CO, CI - Last Documented Arterial Blood Pressure 123/58 - Exam No acute distress, currently off propofol, with a midline tracheostomy. The pat ient has a #8 bivona tracheostomy tube. The patient is comfortable mechanical ventilator. No agitation. Opens up his eyes on continuously. I was told that she is following commands . Motor function is extremely weak in all 4 extremities. HEENT examination is grossly unremarkable. Tracheostomy tube is in place. Neck supple. Full range of motion. No adenopathy thyromegaly or neck vein di stention. Midline tracheostomy is noted. Cardiovascular examination Cardiac exam revealed the PMI to be normally situated and sized. The rhythm was regular and no extrasystoles were noted during several minutes of auscultation. The first and second heart sounds were normal and physiologic splitting of the second heart sound was noted. There were no murmurs, rubs, clicks, or gallops. Lungs reveal bilateral expiratory rhonchi and wheezes. No crackles. Breath sounds are equal bilaterally. Abdomen soft, without bowel sounds. No masses. PEG tube is noted.Abdominal exam revealed normal bowel sounds. The abdomen was soft, non-tender, and without masses, organomegaly, or appreciable enlargement of the abdominal aorta. Extremities are intact. No cyanosis or clubbing. Trace edema is noted. Skin is without rash or lesion. The patient has a DTI pressure wound in her coccyx. Neurologic examination reveals a poorly responsive patient, off of all sedation. - Labs CBC & Chem 7: 09/30/21 08:06 09/30/21 08:06 Labs: Abnormal Lab Results - Last 24 Hours (Table) 09/29/21 09/29/21 09/30/21 Range/Units 11:53 17:55 00:11 RBC (3.80-5.40) m/uL Hgb (11.4-16.0) gm/dL Hct (34.0-46.0) % MCV (80.0-100.0) fL ABG pH (7.35-7.45) ABG pO2 (83-108) mmHg ABG HCO3 (21-25) mmol/L ABG Total CO2 (19-24) mmol/L BUN (7-17) mg/dL Creatinine (0.52-1.04) mg/dL Glucose (74-99) mg/dL POC Glucose (mg/dL) 158 H 114 H 104 H (75-99) mg/dL AST (14-36) U/L ALT (4-34) U/L Albumin (3.5-5.0) g/dL 09/30/21 09/30/21 09/30/21 Range/Units 05:53 06:03 08:06 RBC 2.78 L (3.80-5.40) m/uL Hgb 9.1 L (11.4-16.0) gm/dL Hct 28.6 L (34.0-46.0) % MCV 102.9 H (80.0-100.0) fL ABG pH 7.50 H (7.35-7.45) ABG pO2 81 L (83-108) mmHg ABG HCO3 32 H (21-25) mmol/L ABG Total CO2 34 H (19-24) mmol/L BUN (7-17) mg/dL Creatinine (0.52-1.04) mg/dL Glucose (74-99) mg/dL POC Glucose (mg/dL) 124 H (75-99) mg/dL AST (14-36) U/L ALT (4-34) U/L Albumin (3.5-5.0) g/dL 09/30/21 Range/Units 08:06 RBC (3.80-5.40) m/uL Hgb (11.4-16.0) gm/dL Hct (34.0-46.0) % MCV (80.0-100.0) fL ABG pH (7.35-7.45) ABG pO2 (83-108) mmHg ABG HCO3 (21-25) mmol/L ABG Total CO2 (19-24) mmol/L BUN 23 H (7-17) mg/dL Creatinine 0.39 L (0.52-1.04) mg/dL Glucose 125 H (74-99) mg/dL POC Glucose (mg/dL) (75-99) mg/dL AST 50 H (14-36) U/L ALT 94 H (4-34) U/L Albumin 3.0 L (3.5-5.0) g/dL Assessment and Plan Plan: Acute hypoxemic respiratory failure secondary to coronavirus associated pneumonia, status post intubation and mechanical ventilation on 09/11/2021. Status post tracheostomy and PEG tube placement on 09/23/2021. Chest x-ray findings are stable. Blood gases are stable. Tracheostomy tube is in place. The chest x-ray findings are stable. The patient has limited atelectasis/infiltration of the left lung base. She was quite tachypneic and a mechanical ventilator on a volume cycle mode. Based on that, I switched this patient to a pressure control. She was unable to tolerate pressure support because of poorly generate a tidal volumes. Her now, she is on pressure control mode of mechanical ventilation. She seems to be quite citrus at this point in time. Acute mental status changes, secondary to toxic/metabolic encephalopathy. The patient remains off sedation for now, neurologically the patient is gradually improving. There is a previous history of CVA with some residual left-sided weakness is noted on today's examination. She is to use her arms especially on the right. Methicillin sensitive staph aureus pneumonia, left lower lobe. The patient is currently on Levaquin Dehydration, on admission, resolved. History of seizure disorder. The patient remains on Keppra and Tegretol Prior history of pulmonary embolism. Paroxysmal atrial fibrillation. Current rhythm is sinus and the patient is on oral amiodarone Cardiomyopathy with ejection fraction of 30-35%. Status post pacemaker implantation/AICD History of saccular STABLE MANAGER aneurysm, 4 mm. Hypothyroidism. CAD. History of CVA in 2008. History of recurrent E. coli urinary tract infections. History of psoriasis. History of sacral/coccygeal decubitus ulcer. DTI Plan: Continue vent support Switch this patient to a pressure control mode of mechanical ventilation with a pressure control of 18, PEEP of 5, FiO2 of 30% and a rate of 24. do an ABG 3 hours time. Continue weaning off the Cleviprex currently running at 4 mg an hour start the patient on metoprolol 25 mg by mouth twice a day which also may help with her underlying PVCs and blood pressure control. Continue amiodarone 200 mg by mouth daily. She may benefit from select specialty transfer. Continue Keppra and tegretol Completed the course of Levaquin, a total of 7 days Complete the course of Eraxis, total of 7 days Discontinued arterial line inserted PICC line Continue wound care Continue Lovenox for DVT prophylaxis Consults select specialty for possible transfer to select specialty for further weaning. Critically care evaluation, more than 30 minutes. Time with Patient: Greater than 30
[2021-09-30] MEDS: QUEtiapine 25 MG TAB PO SCH ×2 (09:17→20:05)
[2021-09-30] MEDS: CHOLECALCIFEROL 125 MCG (5000 IU) TABLET PO SCH (09:17)
[2021-09-30] MEDS: ENOXAPARIN 40 MG/0.4 ML SYRINGE SQ SCH (09:17)
[2021-09-30] MEDS: carBAMazepine 200 MG TAB PO SCH ×3 (09:17→21:27)
[2021-09-30] MEDS: PANTOPRAZOLE 40 MG/10 ML VIAL IV SCH (09:18)
[2021-09-30] MEDS: AMIODARONE 200 MG TAB PO SCH (09:18)
[2021-09-30] MEDS: CHLORHEXIDINE GLUCONATE 15 ML CUP MUCOUS MEM SCH ×2 (09:18→20:04)
[2021-09-30] MEDS: levETIRAcetam IV 1,500 MG in SALINE 1 100ML.BAG IVPB SCH ×2 (09:22→20:05)
[2021-09-30] MEDS: LEVOFLOXACIN 500MG-D5W PMX 500 MG in DEXTROSE/WATER 1 100ML.BAG IVPB SCH (11:09)
[2021-09-30] MEDS: METOPROLOL TARTRATE 25 MG TAB PO SCH ×2 (11:26→20:04)
[2021-09-30 11:36] LABS: ABG HCO3 32 mmol/L (21-25); ABG Oxygen Saturation 90.6 % (94-97); ABG PCO2 47 mmHg (35-45); ABG PH 7.44 (7.35-7.45); ABG PO2 64 mmHg (83-108); ABG TCO2 34 mmol/L (19-24); Allen Test Performed? Yes
[2021-09-30 11:39] LABS: Glucose,Whole Blood 123 mg/dL (75-99)
--- NOTE | 2021-09-30 13:20 | P.PN ---
Subjective Progress Note Date: 09/30/21 I was notified by the primary team to re-evaluated patient since needs neurology revaluation for [facility]. She was seen by our team during this admission and was last seen by Dr. Chua on 09/25/2021. Refer to his note for further details. Patient has not been on sedation (IV Propofol) since 09/24/2021. Per the nurse she has not had any further seizures. Per the nurse she was squeezing approp riately on right hand to her and some nodding appropriately. She received Dilaudid today at 9am. She continues to be on Vent. She had repeat CT head on 09/25/2021 and it was reviewed by Dr. Chua's note. Objective - Vital Signs Vital signs: Vital Signs Temp 98.8 F 09/30/21 04:00 Pulse 105 H 09/30/21 11:00 Resp 24 09/30/21 11:00 BP 97/73 09/30/21 11:00 Pulse Ox 92 L 09/30/21 11:00 Intake & Output 09/29/21 09/30/21 09/30/21 18:59 06:59 18:59 Intake Total 1381 1462 722.000 Output Total 915 1310 500 Balance 466 152 222.000 Weight 56.7 kg 58 kg Intake: IV 840 940 410 .9NS 20 240 240 60 Sodium Chloride 0.45% 1, 600 600 250 000 ml @ 50 mls/hr IV . Q20H ADDIE Rx#:[id number] levETIRAcetam IV 1,500 mg 100 100 In Saline 1 100ml.bag @ 400 mls/hr IVPB Q12HR ADDIE Rx#:[id number] Intake, IV Titration 107.000 Amount Clevidipine Butyrate 25 7.000 mg In Empty Bag 1 bag @ 1 MG/HR 2 mls/hr IV .Q24H ADDIE Rx#:[id number] Levofloxacin 500Mg-D5w 100 Pmx 500 mg In Dextrose/ Water 1 100ml.bag @ 100 mls/hr IVPB Q24H ADDIE Rx#: [id number] Tube Feeding 451 492 205 Other 90 30 Output: Urine 915 1310 500 Other: Voiding Method Indwelling Catheter Indwelling Catheter ABP, PAP, CO, CI - Last Documented Arterial Blood Pressure 123/58 - Exam GENERAL: The patient is lying in bed and is not in acute distress. LUNG: Trach on ventilator. NEUROLOGICAL: Somewhat limited since received Dilaudid today in 9ish AM today. Higher mental function: Patient is drowsy but aweakble to voice. She attempt to verbalize. Upon asking her to show me a thumbs up she shows me the entire right hand but not following commands purposeful. Cranial nerves: She would open her eyes and attempts to track. Her primary gaze is midline. No facial weakness. Motor: The strength is moving her hand antigravity upon taking to her but not doing anything purposeful. Otherwise no movement noted. Decrease tone throughout. Sensation: Could not assess light touch. To painful stimuli not withdrawing throughout. SOME OF THE WORK-UP: * Cash virus PCR is positive * Positive urinary tract infection with urine culture of E. coli. * Ammonia level 24 * Calcium is 8.9, Na is 137 (on 09/30/21) * CT of the head on 09/16/2021 was reported as old right hemispheric infarct without change. Old left posterior frontal lobe cortical infarct with that change. No acute abnormality. I personally reviewed the CT of the head and I do agree there is no acute or subacute ischemia there is no intracranial hemorrhage. The patient had old the strokes in the past predominantly over the right right MCA and right occipital and old left frontal. * Repeat CT head on 09/25/21: shows no acute ischemic process. Evidence of chronic bilateral encephalomalacia, stable as compared to last CT scans. * Patient's blood test shows Tegretol level <3.0, Keppra 79.2 and Neurontin level <1.0. * Urine drug seeing is not detected. Serum alcohol was less than 10. * EEG was performed on 09/11/2021 and it is reported as background slowing of at least moderate degree. This is suggestive of generalized cerebral dysfunction as can be seen with toxic metabolic encephalopathy or due to diffuse structural brain abnormality or postictal effect. No epileptiform activity was seen. - Labs CBC & Chem 7: 09/30/21 08:06 09/30/21 08:06 Labs: Abnormal Lab Results - Last 24 Hours (Table) 09/29/21 09/30/21 09/30/21 Range/Units 17:55 00:11 05:53 RBC (3.80-5.40) m/uL Hgb (11.4-16.0) gm/dL Hct (34.0-46.0) % MCV (80.0-100.0) fL ABG pH (7.35-7.45) ABG pCO2 (35-45) mmHg ABG pO2 (83-108) mmHg ABG HCO3 (21-25) mmol/L ABG Total CO2 (19-24) mmol/L ABG O2 Saturation (94-97) % BUN (7-17) mg/dL Creatinine (0.52-1.04) mg/dL Glucose (74-99) mg/dL POC Glucose (mg/dL) 114 H 104 H 124 H (75-99) mg/dL AST (14-36) U/L ALT (4-34) U/L Albumin (3.5-5.0) g/dL 09/30/21 09/30/21 09/30/21 Range/Units 06:03 08:06 08:06 RBC 2.78 L (3.80-5.40) m/uL Hgb 9.1 L (11.4-16.0) gm/dL Hct 28.6 L (34.0-46.0) % MCV 102.9 H (80.0-100.0) fL ABG pH 7.50 H (7.35-7.45) ABG pCO2 (35-45) mmHg ABG pO2 81 L (83-108) mmHg ABG HCO3 32 H (21-25) mmol/L ABG Total CO2 34 H (19-24) mmol/L ABG O2 Saturation (94-97) % BUN 23 H (7-17) mg/dL Creatinine 0.39 L (0.52-1.04) mg/dL Glucose 125 H (74-99) mg/dL POC Glucose (mg/dL) (75-99) mg/dL AST 50 H (14-36) U/L ALT 94 H (4-34) U/L Albumin 3.0 L (3.5-5.0) g/dL 09/30/21 09/30/21 Range/Units 11:27 11:35 RBC (3.80-5.40) m/uL Hgb (11.4-16.0) gm/dL Hct (34.0-46.0) % MCV (80.0-100.0) fL ABG pH (7.35-7.45) ABG pCO2 47 H (35-45) mmHg ABG pO2 64 L (83-108) mmHg ABG HCO3 32 H (21-25) mmol/L ABG Total CO2 34 H (19-24) mmol/L ABG O2 Saturation 90.6 L (94-97) % BUN (7-17) mg/dL Creatinine (0.52-1.04) mg/dL Glucose (74-99) mg/dL POC Glucose (mg/dL) 123 H (75-99) mg/dL AST (14-36) U/L ALT (4-34) U/L Albumin (3.5-5.0) g/dL Assessment and Plan Assessment: * Altered mental status, likely due to toxic metabolic encephalopathy. Causes multifactorial as mentioned below--mentation is mildly better compared to prior examination. * Breakthrough seizure, likely due to multiple metabolic derangements. Patient had seizure disorder for long time, seizures in remission since 2009. * Acute Covid-19 infection with pneumonia. * Recent acute UTI with E. coli. * Severe hypernatremia, resolved * Status post tracheostomy and PEG placement 09/24/2021. * History of Atrial Fibrillation with RVR * Elevated cardiac enzymes--trending down * Acute kidney injury, likely due to dehydration/prerenal, now resolved. * Elevated liver enzymes, still elevated. 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 * History of pacemaker. Plan: * Repeat CT head on 09/25/21: shows no acute ischemic process. Evidence of chronic bilateral encephalomalacia, stable as compared to last CT scans. * Patient's blood test shows Tegretol level <3.0, Keppra 79.2 and Neurontin level <1.0. Elevated Keppra level was because of acute renal failure on presentation, which now has resolved. * Continue Tegretol 200 mg 3 times a day and Keppra 1500 mg twice a day * EEG was performed, which revealed background slowing of at least moderate deg ree. This is suggestive of generalized cerebral dysfunction as can be seen with toxic metabolic encephalopathy or due to diffuse structural brain abnormality or postictal effect. No epileptiform activity was seen. * Resume anticoagulation with Eliquis as early as possible from neurology point to prevent recurrent strokes from atrial fibrillation, unless any obvious contraindications. Cardiology also on board. Defer anticoagulation to IM, critical care and cardiology * Patient completed course of Levaquin total of 7 days. * I.D. team is on board. * Other medical management as per IM, critical care. * Upon discharge, the patient needs to follow-up with a neurologist within 1-2 weeks as outpatient. From neurological perspective patient is making improvement compared to prior visits. She is more awake and moving right hand. Per nurse she was squeezing her hand and nodding somewhat appropriately. For my examination it was somewhat limited because she received Dilaudid but seems somewhat better today compared prior as stated earlier. Pending possible discharge to [facility]. The plan is discussed with the nurse and primary team (Denia). There is no further neurological work-up. Please notify neurology if any further concerns. Phuc Serrano M.D. Neuro-Hospitalist Time with Patient: Less than 30
[2021-09-30] MEDS: ACETAMINOPHEN TAB 325 MG TAB PO PRN (14:21)
--- NOTE | 2021-09-30 15:56 | P.PN ---
Subjective Progress Note Date: 09/30/21 CHIEF COMPLAINT: COVID-19 pneumonia HISTORY OF PRESENT ILLNESS: Patient remains in the ICU intubated and on mechanical ventilation. Patient is status post tracheostomy and PEG tube placement on 09/23/21. Patient is tolerating tube feedings. Consult placed for select specialty for possible transfer to select specialty for further weaning. PHYSICAL EXAM: VITAL SIGNS: Reviewed. GENERAL:no acute distress. HEENT: Moist buccal mucosa. Head is atraumatic, normocephalic. Tracheostomy site clean dry and intact ABDOMEN: Soft. Nondistended. PEG tube site clean dry and intact NEUROLOGIC: awake ASSESSMENT: 1. Acute hypoxic respiratory failure secondary to COVID-19 pneumonia requiring mechanical ventilation 2. Severe protein calorie malnutrition PLAN: -Continue tube feedings -Continue ICU management -Continue supportive care -Discharge planning and process to select specialty Physician Oral Surgery Assistant note has been reviewed by physician. Signing provider agrees with the documented findings, assessment, and plan of care. Objective - Vital Signs Vital signs: Vital Signs Temp 101.4 F H 09/30/21 13:00 Pulse 121 H 09/30/21 14:00 Resp 24 09/30/21 14:00 BP 152/88 09/30/21 14:00 Pulse Ox 93 L 09/30/21 14:00 Intake & Output 09/29/21 09/30/21 09/30/21 18:59 06:59 18:59 Intake Total 1381 1462 924.000 Output Total 915 1310 650 Balance 466 152 274.000 Weight 56.7 kg 58 kg Intake: IV 840 940 530 .9NS 20 240 240 80 Sodium Chloride 0.45% 1, 600 600 350 000 ml @ 50 mls/hr IV . Q20H ADDIE Rx#:[id number] levETIRAcetam IV 1,500 mg 100 100 In Saline 1 100ml.bag @ 400 mls/hr IVPB Q12HR ADDIE Rx#:[id number] Intake, IV Titration 107.000 Amount Clevidipine Butyrate 25 7.000 mg In Empty Bag 1 bag @ 1 MG/HR 2 mls/hr IV .Q24H ADDIE Rx#:[id number] Levofloxacin 500Mg-D5w 100 Pmx 500 mg In Dextrose/ Water 1 100ml.bag @ 100 mls/hr IVPB Q24H ADDIE Rx#: [id number] Tube Feeding 451 492 287 Other 90 30 Output: Urine 915 1310 650 Other: Voiding Method Indwelling Catheter Indwelling Catheter ABP, PAP, CO, CI - Last Documented Arterial Blood Pressure 123/58 - Labs CBC & Chem 7: 09/30/21 08:06 09/30/21 08:06 Labs: Abnormal Lab Results - Last 24 Hours (Table) 09/29/21 09/30/21 09/30/21 Range/Units 17:55 00:11 05:53 RBC (3.80-5.40) m/uL Hgb (11.4-16.0) gm/dL Hct (34.0-46.0) % MCV (80.0-100.0) fL ABG pH (7.35-7.45) ABG pCO2 (35-45) mmHg ABG pO2 (83-108) mmHg ABG HCO3 (21-25) mmol/L ABG Total CO2 (19-24) mmol/L ABG O2 Saturation (94-97) % BUN (7-17) mg/dL Creatinine (0.52-1.04) mg/dL Glucose (74-99) mg/dL POC Glucose (mg/dL) 114 H 104 H 124 H (75-99) mg/dL AST (14-36) U/L ALT (4-34) U/L Albumin (3.5-5.0) g/dL 09/30/21 09/30/21 09/30/21 Range/Units 06:03 08:06 08:06 RBC 2.78 L (3.80-5.40) m/uL Hgb 9.1 L (11.4-16.0) gm/dL Hct 28.6 L (34.0-46.0) % MCV 102.9 H (80.0-100.0) fL ABG pH 7.50 H (7.35-7.45) ABG pCO2 (35-45) mmHg ABG pO2 81 L (83-108) mmHg ABG HCO3 32 H (21-25) mmol/L ABG Total CO2 34 H (19-24) mmol/L ABG O2 Saturation (94-97) % BUN 23 H (7-17) mg/dL Creatinine 0.39 L (0.52-1.04) mg/dL Glucose 125 H (74-99) mg/dL POC Glucose (mg/dL) (75-99) mg/dL AST 50 H (14-36) U/L ALT 94 H (4-34) U/L Albumin 3.0 L (3.5-5.0) g/dL 09/30/21 09/30/21 Range/Units 11:27 11:35 RBC (3.80-5.40) m/uL Hgb (11.4-16.0) gm/dL Hct (34.0-46.0) % MCV (80.0-100.0) fL ABG pH (7.35-7.45) ABG pCO2 47 H (35-45) mmHg ABG pO2 64 L (83-108) mmHg ABG HCO3 32 H (21-25) mmol/L ABG Total CO2 34 H (19-24) mmol/L ABG O2 Saturation 90.6 L (94-97) % BUN (7-17) mg/dL Creatinine (0.52-1.04) mg/dL Glucose (74-99) mg/dL POC Glucose (mg/dL) 123 H (75-99) mg/dL AST (14-36) U/L ALT (4-34) U/L Albumin (3.5-5.0) g/dL
[2021-09-30 17:03] LABS: Glucose,Whole Blood 92 mg/dL (75-99)
[2021-09-30] MEDS: ANIDULAFUNGIN 100 MG in SODIUM CHLORIDE 0.9% 100 ML IVPB SCH (17:21)
--- NOTE | 2021-09-30 20:48 | P.PN ---
Subjective Progress Note Date: 09/30/21 Principal diagnosis: Pneumonia pressure ulcer and multiple antibiotic allergies Patient is a 51-year-old female presenting to the hospital on September 10 for mental status changes patient did have a evidence of COVID-19 infection, with respiratory failure requiring intubation also with E. coli UTI and the patient did have multiple antibiotic allergies. The patient is status post tracheostomy and PEG tube placement on 09/23/2021 On today's evaluation that is to to 09/30/2021, patient continues to be afebrile, the patient is hemodynamically stable not requiring pressor support, the patient FiO2 is stable at 30%, no purulent secretions through the the ET or diarrhea has been reported , patient is slowly waking up and follows commands per the nursing staff Objective - Vital Signs Vital signs: Vital Signs Temp 98.9 F 09/30/21 16:00 Pulse 105 H 09/30/21 19:00 Resp 24 09/30/21 19:00 BP 107/61 09/30/21 19:00 Pulse Ox 94 L 09/30/21 19:00 Intake & Output 09/30/21 09/30/21 10/01/21 06:59 18:59 06:59 Intake Total 1462 1464.000 180 Output Total 1310 1000 75 Balance 152 464.000 105 Weight 58 kg Intake: IV 940 890 120 .9NS 20 240 140 20 Sodium Chloride 0.45% 1, 600 650 100 000 ml @ 50 mls/hr IV . Q20H [facility] Rx#:[id number] levETIRAcetam IV 1,500 mg 100 100 In Saline 1 100ml.bag @ 400 mls/hr IVPB Q12HR ADDIE Rx#:[id number] Intake, IV Titration 107.000 Amount Clevidipine Butyrate 25 7.000 mg In Empty Bag 1 bag @ 1 MG/HR 2 mls/hr IV .Q24H ADDIE Rx#:[id number] Levofloxacin 500Mg-D5w 100 Pmx 500 mg In Dextrose/ Water 1 100ml.bag @ 100 mls/hr IVPB Q24H ADDIE Rx#: [id number] Tube Feeding 492 467 60 Other 30 Output: Urine 1310 1000 75 Other: Voiding Method Indwelling Catheter Indwelling Catheter Indwelling Catheter ABP, PAP, CO, CI - Last Documented Arterial Blood Pressure 123/58 - Exam GENERAL DESCRIPTION: Middle-aged male intubated on the vent, no distress. No tachypnea or accessory muscle of respiration use. LUNGS: Unlabored breathing. Decreased breath sound at the base. No wheeze or crackle. HEART: S1, S2, regular rate and rhythm. No loud murmur ABDOMEN: Soft, no tenderness , guarding or rigidity, no organomegaly EXTREMITIES: No edema of feet. Patient with unstageable sacral pressure ulcer with surrounding swelling redness has decreased, upper back unstageable pressure ulcer with black esher but with no surrounding tenderness and drainage - Labs CBC & Chem 7: 09/30/21 08:06 09/30/21 08:06 Labs: Abnormal Lab Results - Last 24 Hours (Table) 09/30/21 09/30/21 09/30/21 Range/Units 00:11 05:53 06:03 RBC (3.80-5.40) m/uL Hgb (11.4-16.0) gm/dL Hct (34.0-46.0) % MCV (80.0-100.0) fL ABG pH 7.50 H (7.35-7.45) ABG pCO2 (35-45) mmHg ABG pO2 81 L (83-108) mmHg ABG HCO3 32 H (21-25) mmol/L ABG Total CO2 34 H (19-24) mmol/L ABG O2 Saturation (94-97) % BUN (7-17) mg/dL Creatinine (0.52-1.04) mg/dL Glucose (74-99) mg/dL POC Glucose (mg/dL) 104 H 124 H (75-99) mg/dL AST (14-36) U/L ALT (4-34) U/L Albumin (3.5-5.0) g/dL 09/30/21 09/30/21 09/30/21 Range/Units 08:06 08:06 11:27 RBC 2.78 L (3.80-5.40) m/uL Hgb 9.1 L (11.4-16.0) gm/dL Hct 28.6 L (34.0-46.0) % MCV 102.9 H (80.0-100.0) fL ABG pH (7.35-7.45) ABG pCO2 (35-45) mmHg ABG pO2 (83-108) mmHg ABG HCO3 (21-25) mmol/L ABG Total CO2 (19-24) mmol/L ABG O2 Saturation (94-97) % BUN 23 H (7-17) mg/dL Creatinine 0.39 L (0.52-1.04) mg/dL Glucose 125 H (74-99) mg/dL POC Glucose (mg/dL) 123 H (75-99) mg/dL AST 50 H (14-36) U/L ALT 94 H (4-34) U/L Albumin 3.0 L (3.5-5.0) g/dL 09/30/21 Range/Units 11:35 RBC (3.80-5.40) m/uL Hgb (11.4-16.0) gm/dL Hct (34.0-46.0) % MCV (80.0-100.0) fL ABG pH (7.35-7.45) ABG pCO2 47 H (35-45) mmHg ABG pO2 64 L (83-108) mmHg ABG HCO3 32 H (21-25) mmol/L ABG Total CO2 34 H (19-24) mmol/L ABG O2 Saturation 90.6 L (94-97) % BUN (7-17) mg/dL Creatinine (0.52-1.04) mg/dL Glucose (74-99) mg/dL POC Glucose (mg/dL) (75-99) mg/dL AST (14-36) U/L ALT (4-34) U/L Albumin (3.5-5.0) g/dL Assessment and Plan (1) Pneumonia Current Visit: Yes Status: Acute Code(s): J18.9 - PNEUMONIA, UNSPECIFIED ORGANISM SNOMED Code(s): 971174489 (2) Allergy to multiple antibiotics Current Visit: Yes Status: Acute Code(s): Z88.1 - ALLERGY STATUS TO OTHER ANTIBIOTIC AGENTS SNOMED Code(s): 224048775 (3) COVID-19 Current Visit: Yes Status: Acute Code(s): U07.1 - COVID-19 SNOMED Code(s): 594471914 Plan: 1-Patient with acute respiratory failure which is multifactorial in this patient who did have a covid19 pneumonia and a concern for possible secondary bacterial pneumonia patient With a new fever blood and sputum cultures were done and blood culture has been negative, the patient sputum did grew Radha and MSSA. patient did have a penicillin and cephalosporin ALLERGY, patient is currently covered with Eraxis and has completed her Levaquin therapy, will monitor clinical course closely 2-patient with unstageable sacral pressure ulcer as well as unstageable pressure ulcer to the upper back area, local wound care with the medahoney followed by moist dressing and keep the area off the pressure 3-left elbow pressure ulcer stage II with no cellulitis local wound care with a dry with visible dressing daily of the pressure Time with Patient: Less than 30
[2021-09-30 21:19] LABS: Appearance,Urine Clear (Clear); Bilirubin,Urine Negative (Negative); Blood,Urine Negative (Negative); Color,Urine Yellow; Glucose,Urine (UA) Negative (Negative); Ketones,Urine Negative (Negative); Leukocyte Esterase,Urine Negative (Negative); Nitrite,Urine Negative (Negative); PH, Urine 7.5 (5.0-8.0); Protein,Urine Trace (Negative); Specific Gravity,Urine 1.016 (1.001-1.035); Urobilinogen,Urine <2.0 mg/dL (<2.0)
[2021-09-30 23:55] LABS: Glucose,Whole Blood 114 mg/dL (75-99)
[2021-10-01] MEDS: INSULIN ASPART (NovoLOG) 100 UNIT/ML VIAL SQ SCH ×4 (00:31→18:28)
--- NOTE | 2021-10-01 00:36 | P.PN ---
Subjective Progress Note Date: 09/30/21 This is a pleasant 51 years old female with past medical history of Coronary Artery Disease, Heart Failure, CVA/TIA, Pulmonary Embolus (PE), Seizure Disorder, Last seizure 2009, CVA 2007 with L sided weakness arm and leg and has L foot drop, TIA 2018, cardiomyopathy, R PE and pneumothorax/pneumonia following leg fracture in 1994, gestational diabetes with all pregnancies , bilateral glaucoma with surgery, psoriasis in the past, UTIs. She is a status post Pacemaker, history of Bilateral eye surgery for glaucoma, Anxiety, Depression, Current every day smoker Patient presents because of altered mental status. Information was limited from the patient. It was obtained from the chart and medical staff. Also as per family patient was able to go to the bathroom, was more lethargic and tired over the last day. While in the emergency room focal mild seizure is noticed On admission patient had and fever of 101. She is tachypneic at 26-40, tachycardic 110-140, also she is hypoxic saturating 72% on room air Labs showing WBC of 10.5, hemoglobin of 16.3, platelet count of 197. INR 1.7. Sodium 164, creatinine 1.7, lactic acid elevated 4.6. Liver enzymes elevated with AST 202 and ALT 81. Bilirubin is normal at 1.3. Urine analysis is highly suspicious of infection Urine drug screen is negative Cash versus positive Chest x-ray showing left perihilar and left lower lobe area of infiltrate and small effusion correlates for pneumonia CT of the brain without contrast showing no intracranial hemorrhage, evidence of remote ischemic change. However there is vague low attenuation near the left thalamus and left cerebral peduncle. Acute ischemia in the differential diagnosis. Recommend stat MRI of brain with MRSA [place] as clinically warranted. In the emergency room patient was started on aztreonam and IV vancomycin, Keppra and heparin drip 09/11/2021 Patient today was still in the ICU, she was very weak and obtunded, she will wake up to certain stabilized and moans, she does not follow commands she cannot, gait she moved both extremities symmetrically. R on she had collapse of her left lung cancer and she has to be intubated and repeat chest x-ray showing better. A of the left lung. She is tachypneic with a breathing rate 22, no more fever since yesterday. Her sodium improved down to 144 and she was started on normal saline, creatinine 1.1, Ejection fraction showed 30-35% which is slice worsened from 06/2021 where it was 35-40% She remains on dexamethasone, IV vancomycin and clindamycin, heparin drip, Keppra and normal saline at 75 mL/h 09/12/2021 Patient with respiratory failures and she was intubated and placed on mechanical ventilation with pulmonary/critical care team following her mostly. There is no more seizure-like activity noticed. She still tachypneic with a breathing rate of 32 blood pressure 100/70, she is needing FiO2 of 80% and PEEP of 20. She has no more fevers since admission. Urine culture is growing gram-negative bacilli. Sodium is 146, WBCs is increased at 16.5 K. PH showing acidosis with 7.1 and elevated pCO2 at 83. Chest x-ray showing left sided opacities with near full. A of the left lung. Patient kept on antibiotics in the form of clindamycin and Levaquin and fluconazole. Also she remains on dexamethasone, and so a heparin to Lovenox. Also continued on seizure medication 1500 mg twice a day and IV fluids per pulmonary team. Neurology team on the case 09/13/2021 Patient remains intubated and sedated with pulmonary/critical care team following her closely. Her PEEP is lower today to 18. She remains on FiO2 of 50%. She is tachypneic at 32 about blood pressure is controlled. Her inflammatory markers are increased to LDH of 1009 and CRP of 25.1. Bicarb is elevated at 31 WBC is 17.7, sodium improved to 142. Creatinine improved to 0.6. Chest x-ray showed improving left lung infiltrate. PH is improved slightly 7.2 with pCO2 is slightly better at 79. Urine culture is growing E. coli which is sensitive to the antibiotics. Currently patient is covered with clindamycin, Levaquin and fluconazole. Also she is on dexamethasone 6 mg, Keppra 1500 mg and half-normal saline at 50 mL per hour Anticoagulation switch from heparin drip and to Lovenox 09/14/2021 Patient still intubated and sedated on mechanical ventilation with pulmonary/critical care team following her closely and just her vent setting. Today her FiO2 of 55%, and she is tachypneic at 33 breath per minute. Labs showing stable findings with sodium 141, creatinine 0.8, liver enzymes slightly elevated, LDH slightly down at 797 and CRP 2-3.2. Same leukocytosis at 14.7. Her pH is 7.2 and carbon dioxide is 82. D-dimer mildly elevated at 0.9, just x-ray showing bilateral infiltrate with no significant change from prior. She remains on the same antibiotic of clindamycin, Levaquin, dexamethasone, Keppra 1500 mg and half normal saline at 50 mL/h 09/15/2021 Patient in the ICU intubated and sedated, with pulmonary/critical care team following closely. FiO2 still 50%, hemodynamically showing both staple blood pressure 101/40, patient is tachypneic more than 30 per minutes. PEEP is lower. wbc of 11.3, hemoglobin 9.4, sodium 140, creatinine 0.8. chest x-ray: mild worsening infiltrate in the left lobe. patient continued with the same treatment of clindamycin, levaquin, dexamethasone, keppra and she received 1 l of normal saline today. 09/16/2021 Patient is seen and evaluated and follow-up continues to be closely monitored in the ICU. Multiple medical consultations following including infectious disease, pulmonary corporate legal manager, and neurology. Patient continues on mechanical vent with an FiO2 of 50% and PEEP is 10. Weaning is being continued and PEEP is being titrated down to 8. Patient continues with sedation holidays and very minimal propofol and patient is now off Nimbex and very minimal stimulus noted. Patient response to painful stimulus minimally. Plan is for possible CT of the brain repeat this afternoon. Patient also being closely monitored for continued seizures of which she does have a past medical history of. Patient is also Covid positive and infectious disease is following and patient is maintained on clindamycin along with Levaquin. Chest x-ray today shows correlate for left lower lobe pneumonia versus atelectasis with possible associated effusion. 09/17/2021 Patient is seen in follow-up this morning closely monitored in the ICU. Neurology also following and patient is maintained on IV Keppra. Patient also continues on IV antibiotics in the form of aztreonam and clindamycin with infectious disease following. Patient urine culture showing E. coli. Chest x- ray today shows chronic emphysematous changes with left basilar acute infiltrate and/or atelectasis and likely small left pleural effusion all redemonstrated with no significant change from previous day. Neurology following And okay to resume anticoagulant as there is no evidence of new intracranial process or hemorrhage. Patient is off sedation and continues to be unresponsive. 09/18/2021 Patient is evaluated again this morning and continues to be in the ICU on mechanical vent and being closely monitored. FiO2 is at 45% and PEEP is 8. Patient continues to be off sedation with no response for over 24 hours. Neurology following as well and have discussed overall prognosis with family and family discussing with other family members about CODE STATUS and treatment plan moving forward. Infectious disease also following and patient is maintained on IV Levaquin along with clindamycin and aztreonam and will continue. Urine cultures finalized showing E. coli and sputum culture preliminary is pending at this time. 09/19/2020 Patient evaluated today in the ICU on mechanical ventilation. Fi02 at 45% with a PEEP of 8. Propofol infusing, Nimbex and Levophed are currently on hold. Pr ecedex discontinued. There has been no response, and mental status is not improving. Still no response to verbal stimuli. Patient is being followed closely by neurology for this and is on IV keppra and tegretol. EEG consistant with toxic metabolic encepholapthy. Repeat chest xray today shows similar opacities given patient rotation. Stable support tubes. Mild pulmonary vascular congestion correlate with serum BNP. Blood cultures negative, pending finalized, sputum negative so far. Labs reviewed today: WBC 9.2, hgb 10.3, sodium 138, potassium 3.8, BUN 33, Cr 0.76, glucose in the 110's, calcium 7.9, AST 250, ALT 78, Albumin 2.3. Vitals reviewed: Temp 97.4, HR 126, RR 44, Blood pressure 113/80, 96% oxygen saturation on mechanical ventilation. 09/20/2021 Patient evaluated in ICU on mechanical ventilation with an Fi02 of 45%, PEEP of 12. Chest xray today shows left lower lobe atelectasis versus pneumonia with similar findings as previous. BNP yesterday 12,500, however xray reviewed and d oes not appear to be showing heart failure. She is in negative fluid balance. Status was addressed with family by neurology who is awaiting a phone call back. White count 12.8, RBC 3.5, sodium 137 potassium 3.8, chloride 101, CO2 33, BUN 35, creatinine 0.68, blood sugars in the 120s, AST 424, ALT 115, alk phos 63. Running temps today 100.8, heart rate 123, respiratory rate 36, blood pressure 95/65, oxygen saturation of 93-94%. Blood pressures are on the softer side 88/55. Current infusions include propofol which has been resumed as patient has not shown any signs of neurological improvement while on a propofol break. 09/21/2021 Patient is seen in follow up today and continues to be on mechanical vent with an FI02 of 45% with a peep of 8 and multiple medical consultations following. Ch est xray similar from previous with copd and continued focal basilar left lower lobe retrocardiac consolidation or atelectasis. Patient is on propofol and general surgery has been consulted for peg and trach placement. Plan for surgery is tomorrow. 09/22/2021 Patient is seen and evaluated in follow-up this morning continues on mechanical ventilation with a PEEP of 8 and FiO2 is 45%. General surgery following an plan is for PEG and trach placement today due to prolonged mechanical ventilation and no improvements or weaning from the vent. Patient continues on tube feeding along with Lovenox which is currently on hold for the surgical procedure. Patient's chest x-ray today shows diffuse bilateral infiltrates that are stable with no pneumothorax or pleural effusion noted. Patient also had gallbladder ultrasound secondary to elevated liver functions and shows hepatomegaly otherwise unremarkable. Patient is continued on antifungal's along with vancomycin and infectious disease following closely. Sputum cultures preliminary showing Radha glabrata and Staphylococcus aureus and most recent blood cultures have been negative. 09/23/2021 Patient is seen in follow-up this morning and patient was unable to receive PEG and trach with general surgery following yesterday and plan is for today. Patient continues on mechanical vent and FiO2 is 45% with a PEEP of 8. Lovenox and tube feeding currently on hold. Chest xray reviewed and no acute changes from yesterday. Continues to be unresponsive. Prognosis remains poor. 09/24/2021 Patient is seen this morning status post PEG and trach placement and is resuming tube feedings with general surgery following. Patient continues on mechanical vent with an FiO2 of 40% and PEEP is 8. Per nursing staff working on weaning sedation and assessing neuro status. Continues with being obtunded and no purposeful movements noted. Chest xray shows COPD with improvement in previous left pleural effusion with mild patchy infiltrates/retrocardiac atelectasis noted. 09/25/2021 Patient is seen and evaluated today continues to be in the ICU on mechanical ventilation and continues on sedation with attempts at weaning. FI02 is 40% and peep of 8. Multiple medical consultations following. Plan is for repeat ct of the brain sometime this afternoon. Per nursing staff patient is tolerating tube feeds. Chest xray today shows suboptimal study due to positioning and unable to exclude some worsening atelectasis or infiltrate. 09/26/2021 Patient is in the MICU. Status post tracheostomy and PEG tube placement on 09/23/2021 remains on mechanical ventilator. FiO2 40% and PEEP of 8. Patient remains unresponsive and does not follow simple commands. Repeat CT done on 09/25/2021 showed findings consistent with cerebrovascular infarction bilaterally. May be indicative of otitis media bilaterally. No acute brain abnormality evident. Patient is being continued antibiotics in the form of Levaquin and Eraxis per bacterial pneumonia and sputum cultures growing Radha and staph aureus. Laboratory data showed WBC 8.7 hemoglobin 8.8 and platelets 330 Sodium 138 potassium 3.6 chloride 102 bicarb is 34 BUN 2020 creatinine 0.38 and calcium 8.4 Patient is being continued antibiotics and antiepileptic medications. Pulmonary, neurology and ID is on board. 09/27/2021 Patient is in the MICU. Status post tracheostomy and PEG tube placement and mechanical ventilator. Patient is off sedation. Currently on assist control with tidal volume 325 FiO2 35% and PEEP of 8. Patient remains obtunded and does not follow simple commands. Chest x-ray showed improvement in the opacity in the obscuring the left hemidiaphragm on the prior study. Most likely represents decreasing small pleural effusion Laboratory showed WBC 8.3 hemoglobin 9.5 platelets 102 sodium 138 potassium 4.0 chloride 103 bicarb is 31 BUN 2020 creatinine 0.45 calcium 8.8 patient is being current on antibiotics in the form of Levaquin and Eraxis. Decadron has been discontinued. 09/28/2021 Patient continues to be closely monitored in the ICU with multiple medical consultations following. Current FiO2 is 35% and PEEP is 5. She is off sedation. Per nursing staff, patient did squeeze her right hand although unresponsive on exam. Patient chest xray shows chronic emphysematous change with left basilar acute infiltrate and or atelectasis and likely small left pleural effusion are all redemonstrated with no significant change from one day earlier. Patient continues on tube feeding and tolerating. Social work following and working on placement. Peer to Peer for insurance required. Patient also continues on Levaquin and antifungal for MSSA and radha glabrata in the sputum. Continue local wound care. 09/29/2021 Patient is seen and evaluated this morning continues to be closely monitored in the ICU. Patient remains off sedation and continues on mechanical ventilation via tracheostomy with an FiO2 of 35% and PEEP is 5. Pulmonary corporate legal manager following closely and continuing to wean and evaluating weaning parameters with possible attempts at trach collar. Patient is extremely lethargic although opening eyes and responding to commands appropriately and nodding yes and no appropriately to questions and commands. Patient continues to be flaccid on the left side although is able to squeeze writers hands this morning on the right and follow commands. Patient continues on anidulafungin along with IV Levaquin with infectious disease following closely. Patient tolerating tube feedings and will continue. 09/30/2021 Patient is seen today continues to be closely monitored in the ICU. Patient has been off sedation and currently maintained on mechanical ventilation via tracheostomy and PEEP is currently 5 with an FiO2 of 30%. Chest x-ray today shows COPD and continued small left pleural effusion with left basilar retrocardiac atelectasis and/or consolidation. Neurology to reevaluate. Patient was on cleviprex and being weaned. Review of systems: unable to obtain today, just received dilaudid and lethargic Labs: WBC is 6.6, hemoglobin is 9.1, platelets are 283, sodium is 137, potassium 4.0, BUN 23, creatinine 0.39, calcium is 8.9 Active Medications Acetaminophen (Acetaminophen Tab 325 Mg Tab) 650 mg PO Q6HR PRN PRN Reason: Fever and/ or Pain Last Admin: 09/30/21 14:21 Dose: 650 mg Documented by: Amiodarone HCl (Amiodarone 200 Mg Tab) 200 mg PO DAILY ADDIE Last Admin: 09/30/21 09:18 Dose: 200 mg Documented by: Artificial Tears (Artificial Tears-Hypromellose Drops 15 Ml Btl) 1 drops BOTH EYES QID PRN PRN Reason: Dry Eye(s) Last Admin: 09/16/21 08:58 Dose: 1 drops Documented by: Carbamazepine (Carbamazepine 200 Mg Tab) 200 mg PO TID [facility] Last Admin: 09/30/21 09:17 Dose: 200 mg Documented by: Chlorhexidine Gluconate (Chlorhexidine Gluconate 15 Ml Cup) 15 ml MUCOUS MEM BID [facility] Last Admin: 09/30/21 09:18 Dose: 15 ml Documented by: Cholecalciferol (Cholecalciferol 125 Mcg (5000 Iu) Tablet) 125 mcg PO DAILY [facility] Last Admin: 09/30/21 09:17 Dose: 125 mcg Documented by: Enoxaparin Sodium (Enoxaparin 40 Mg/0.4 Ml Syringe) 40 mg SQ DAILY [facility] Last Admin: 09/30/21 09:17 Dose: 40 mg Documented by: Hydromorphone HCl (Hydromorphone 1 Mg/Ml 1 Ml Syringe) 1 mg IVP Q2H PRN PRN Reason: Pain Last Admin: 09/30/21 09:26 Dose: 1 mg Documented by: Levetiracetam 1,500 mg/ IV (Solution) 100 mls @ 400 mls/hr IVPB Q12HR [facility] Last Admin: 09/30/21 09:22 Dose: 400 mls/hr Documented by: Sodium Chloride (Saline 0.45%) 1,000 mls @ 50 mls/hr IV .Q20H [facility] Last Admin: 09/30/21 03:40 Dose: 50 mls/hr Documented by: Anidulafungin 100 mg/ Sodium (Chloride) 130 mls @ 84 mls/hr IVPB DAILY@1700 [facility] Last Admin: 09/29/21 16:26 Dose: 84 mls/hr Documented by: Propofol 1,000 mg/ IV Solution 100 mls @ 0 mls/hr IV .Q0M [facility]; Protocol Last Titration: 09/24/21 11:28 Dose: 0 mcg/kg/min, 0 mls/hr Documented by: Clevidipine 25 mg/ IV Solution 50 mls @ 2 mls/hr IV .Q24H [facility]; Protocol Last Titration: 09/30/21 09:00 Dose: 0 mg/hr, 0 mls/hr Documented by: Insulin Aspart (Insulin Aspart (Novolog) 100 Unit/Ml Vial) 0 unit SQ Q6H [facility]; Protocol Last Admin: 09/30/21 12:38 Dose: Not Given Documented by: Metoprolol Tartrate (Metoprolol Tartrate 25 Mg Tab) 25 mg PO BID [facility] Last Admin: 09/30/21 11:26 Dose: 25 mg Documented by: Miscellaneous Information (Potassium Replacement Protocol 1 Each Misc) 1 each MISCELLANE DAILY PRN; Protocol PRN Reason: Per Protocol Miscellaneous Information (Magnesium Replacement Protocol 1 Each Misc) 1 each MISCELLANE DAILY PRN; Protocol PRN Reason: Per Protocol Naloxone HCl (Naloxone 0.4 Mg/Ml 1 Ml Vial) 0.2 mg IV Q2M PRN PRN Reason: Opioid Reversal Pantoprazole Sodium (Pantoprazole 40 Mg/10 Ml Vial) 40 mg IV DAILY [facility] Last Admin: 09/30/21 09:18 Dose: 40 mg Documented by: Quetiapine Fumarate (Quetiapine 25 Mg Tab) 25 mg PO BID [facility] Last Admin: 09/30/21 09:17 Dose: 25 mg Documented by: Physical exam: GENERAL: The patient is intubated and off sedation although lethargic today, FiO2 is 35% and PEEP is 5 HEENT: Pupils are round and equally reacting to light. EOMI. No scleral icterus. No conjunctival pallor. Normocephalic, atraumatic. No pharyngeal erythema. No thyromegaly. CARDIOVASCULAR: S1 and S2 present. No murmurs, rubs, or gallops. PULMONARY: diminished breath sounds bilaterally with coarse rhonchi noted ABDOMEN: Soft, nontender, nondistended, normoactive bowel sounds. No palpable organomegaly. MUSCULOSKELETAL: No joint swelling or deformity. EXTREMITIES: No cyanosis, clubbing, or pedal edema. NEUROLOGICAL: lethargic and unable to completely assess, remains off sedation SKIN: No rashes. no petechiae. Assessment: Altered mental status possibly secondary to metabolic/toxic encephalopathy, ruled out other intracranial lesions, and possibly secondary to seizures Acute hypoxic respiratory failure secondary to COVID-19 pneumonia requiring mechanical ventilation status post peg tube and tracheostomy placement Left lower lobe pneumonia, rule out aspiration pneumonia Acute urinary tract infection, present on admission with culture showing E. coli, adequately treated Sepsis secondary to UTI and pneumonia Breakthrough seizure Bilateral interstitial Covid 19 pneumonia Increased inflammatory markers of covid 19 elevated troponins on admission, most likely type II ischemia secondary to acute kidney injury and possibly secondary to electrolyte abnormalities. Cardiomyopathy with most recent EF of 30-35% Hypernatremia, improved Acute kidney injury, improved Mild elevated liver enzymes History of coronary artery disease History of pulmonary embolism History of seizure disorder, last seizure was in 2009 as per documents History 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 left foot drop History of glaucoma status post surgery Status post permanent pacemaker Nicotine dependence GI prophylaxis DVT prophylaxis Full code Plan: This is a pleasant 51 years old female who presented with altered mental status, pneumonia, UTI, possible stroke although most likely old infarcts noted on CT, seizure and positive for covid pneumonia patient was intubated and continues on mechanical ventilation with a FiO2 of 35% and PEEP is 5. Patient is status post PEG and trach placement recently from prolonged mechanical ventilation. Attempted peer to peer review with insurance and was denied for transfer to LTAC at this time as patient needs reevaluation by neurology given patient is now more responsive and off sedation, continued PT/OT therapy notes and will have PT/OT see daily, and requiring more documentation on the weaning attempts and trials as they feel patient is not stable to move to LTAC at this time to continue vent weaning. Will discuss with pulmonary, PT/OT, neurology, and social work about treatment plan moving forward. Continue with Keppra and neurology following and have asked for neuro to reevaluate the patient. pulmonary and infectious disease following, continue with antifungals, Levaquin discontinued Continue with vitamin and zinc supplements along with Lovenox Overall Prognosis remains extremely guarded Social work following and working on possible LTAC and peer to peer denied and awaiting appeal. Will continue to monitor closely. Objective - Vital Signs Vital signs: Vital Signs Temp 98.8 F 09/30/21 04:00 Pulse 87 09/30/21 09:00 Resp 28 H 09/30/21 09:00 BP 172/89 09/30/21 09:00 Pulse Ox 89 L 09/30/21 09:00 Intake & Output 09/29/21 09/30/21 09/30/21 18:59 06:59 18:59 Intake Total 1381 1462 313 Output Total 915 1310 350 Balance 466 152 -37 Weight 56.7 kg 58 kg Intake: IV 840 940 190 .9NS 20 240 240 40 Sodium Chloride 0.45% 1, 600 600 150 000 ml @ 50 mls/hr IV . Q20H [facility] Rx#:[id number] levETIRAcetam IV 1,500 mg 100 In Saline 1 100ml.bag @ 400 mls/hr IVPB Q12HR [facility] Rx#:[id number] Tube Feeding 451 492 123 Other 90 30 Output: Urine 915 1310 350 Other: Voiding Method Indwelling Catheter Indwelling Catheter ABP, PAP, CO, CI - Last Documented Arterial Blood Pressure 123/58 - Labs CBC & Chem 7: 09/30/21 08:06 09/30/21 08:06 Labs: Abnormal Lab Results - Last 24 Hours (Table) 09/29/21 09/29/21 09/30/21 Range/Units 11:53 17:55 00:11 RBC (3.80-5.40) m/uL Hgb (11.4-16.0) gm/dL Hct (34.0-46.0) % MCV (80.0-100.0) fL ABG pH (7.35-7.45) ABG pO2 (83-108) mmHg ABG HCO3 (21-25) mmol/L ABG Total CO2 (19-24) mmol/L BUN (7-17) mg/dL Creatinine (0.52-1.04) mg/dL Glucose (74-99) mg/dL POC Glucose (mg/dL) 158 H 114 H 104 H (75-99) mg/dL AST (14-36) U/L ALT (4-34) U/L Albumin (3.5-5.0) g/dL 09/30/21 09/30/21 09/30/21 Range/Units 05:53 06:03 08:06 RBC 2.78 L (3.80-5.40) m/uL Hgb 9.1 L (11.4-16.0) gm/dL Hct 28.6 L (34.0-46.0) % MCV 102.9 H (80.0-100.0) fL ABG pH 7.50 H (7.35-7.45) ABG pO2 81 L (83-108) mmHg ABG HCO3 32 H (21-25) mmol/L ABG Total CO2 34 H (19-24) mmol/L BUN (7-17) mg/dL Creatinine (0.52-1.04) mg/dL Glucose (74-99) mg/dL POC Glucose (mg/dL) 124 H (75-99) mg/dL AST (14-36) U/L ALT (4-34) U/L Albumin (3.5-5.0) g/dL 09/30/21 Range/Units 08:06 RBC (3.80-5.40) m/uL Hgb (11.4-16.0) gm/dL Hct (34.0-46.0) % MCV (80.0-100.0) fL ABG pH (7.35-7.45) ABG pO2 (83-108) mmHg ABG HCO3 (21-25) mmol/L ABG Total CO2 (19-24) mmol/L BUN 23 H (7-17) mg/dL Creatinine 0.39 L (0.52-1.04) mg/dL Glucose 125 H (74-99) mg/dL POC Glucose (mg/dL) (75-99) mg/dL AST 50 H (14-36) U/L ALT 94 H (4-34) U/L Albumin 3.0 L (3.5-5.0) g/dL
[2021-10-01 05:21] LABS: ABG Base Excess 6.4 mmol/L; ABG HCO3 29 mmol/L (21-25); ABG Oxygen Saturation 92.7 % (94-97); ABG PCO2 33 mmHg (35-45); ABG PH 7.55 (7.35-7.45); ABG PO2 64 mmHg (83-108); ABG TCO2 30 mmol/L (19-24); Allen Test Performed? Yes
[2021-10-01 05:50] LABS: Glucose,Whole Blood 128 mg/dL (75-99)
[2021-10-01 06:19] LABS: Basophils % (A) 0 %; Eosinophils # (A) 0.1 k/uL (0-0.7); Eosinophils % (A) 2 %; HCT 28.9 % (34.0-46.0); HGB 9.4 gm/dL (11.4-16.0); Lymphocytes # (A) 0.9 k/uL (1.0-4.8); Lymphocytes % (A) 13 %; MCH 32.4 pg (25.0-35.0); MCHC 32.5 g/dL (31.0-37.0); MCV 99.6 fL (80.0-100.0); Macrocytosis Slight; Mean Platelet Volume 8.3; Monocytes # (A) 0.5 k/uL (0-1.0); Monocytes % (A) 7 %; Neutrophils # (A) 5.5 k/uL (1.3-7.7); Neutrophils % (A) 78 %; Platelet Count 257 k/uL (150-450); RDW 14.4 % (11.5-15.5); WBC 7.1 k/uL (3.8-10.6)
[2021-10-01 06:39] LABS: African American GFR (CKD) >90 (>60 ml/min/1.73 sqM); Anion Gap 6 mmol/L; Blood Urea Nitrogen 23 mg/dL (7-17); Calcium 8.6 mg/dL (8.4-10.2); Carbon Dioxide 28 mmol/L (22-30); Chloride 101 mmol/L (98-107); Glucose 126 mg/dL (74-99); Non-African American GFR(CKD) >90 (>60 ml/min/1.73 sqM); Potassium 3.5 mmol/L (3.5-5.1); Sodium 135 mmol/L (137-145)
[2021-10-01] MEDS: HYDROmorphone 1 MG/ML 1 ML SYRINGE IVP PRN ×3 (06:57→18:39)
[2021-10-01 07:56] LABS: C Reactive Protein 16.2 mg/dL (<1.0)
--- NOTE | 2021-10-01 08:31 | XR ---
EXAMINATION TYPE: XR chest 1V portable DATE OF EXAM: 10/01/2021 CLINICAL HISTORY: Difficulty breathing and covid progress study. TECHNIQUE: Single AP portable frontal view of the chest is obtained. COMPARISON: Chest x-ray from one day earlier and older studies. FINDINGS: Stable tracheostomy tube. Stable right-sided PICC line. Cardiac silhouette size is stable and within normal limits with single lead pacemaker/AICD redemonstr ated. Background Chronic emphysematous change with persistent left basilar opacity silhouetting left hemidiaphragm redemonstrated. Right lung remains clear. Osseous structures are intact. IMPRESSION: Chronic emphysematous change with left basilar opacity redemonstrated. No significant kaylin nge from one day earlier.
[2021-10-01] MEDS: CHLORHEXIDINE GLUCONATE 15 ML CUP MUCOUS MEM SCH ×2 (08:42→20:07)
[2021-10-01] MEDS: METOPROLOL TARTRATE 25 MG TAB PO SCH ×2 (08:42→20:07)
[2021-10-01] MEDS: ENOXAPARIN 40 MG/0.4 ML SYRINGE SQ SCH (08:42)
[2021-10-01] MEDS: PANTOPRAZOLE 40 MG/10 ML VIAL IV SCH (08:42)
[2021-10-01] MEDS: CHOLECALCIFEROL 125 MCG (5000 IU) TABLET PO SCH (08:42)
[2021-10-01] MEDS: QUEtiapine 25 MG TAB PO SCH ×2 (08:42→20:07)
[2021-10-01] MEDS: carBAMazepine 200 MG TAB PO SCH ×3 (08:43→21:00)
[2021-10-01] MEDS: AMIODARONE 200 MG TAB PO SCH (08:43)
[2021-10-01] MEDS: levETIRAcetam IV 1,500 MG in SALINE 1 100ML.BAG IVPB SCH ×2 (08:44→20:07)
--- NOTE | 2021-10-01 09:36 | P.PN ---
Subjective Progress Note Date: 10/01/21 This is a 51-year-old female patient with established COVID 19 related pneumonia, prolonged respiratory failure, was currently in the intensive care unit being seen for a follow-up. 09/28/2021, the patient is being seen for a follow-up. She is on a mechanical ventilator. The chest and the tumors are diminished sense and for prolonged respiratory failure. This morning, the patient at the rate of 30 to assist- control mode with a tidal volume of 325, FiO2 of 35% and a PEEP of 8. She has a Bivona tracheostomy tube #8. Note that the patient has been off sedation since 09/24/2021. Neurologically, she is still unresponsive. She is not following any commands. The patient opens up her eyes spontaneously. She grimaces to painful stimulation. She is quite comfortable in a mechanical ventilator. She is hemodynamically stable on no pressors. She is receiving enteral feeding for nutritional support in the form of vital AF at the rate of 57 mL an hour. She is also on half-normal saline today to 50 mL an hour. She has a triple lumen catheter in her right femoral vein. She is also done and arterial line that is nonfunctioning. Her blood work today shows a pH of 7.44 with a pCO2 of 46 and pO2 of 73. White cell count and 6 with a hemoglobin of 9.2 and a platelet count of 364. Sodium is at 136. Normal renal function with a mean of 27 and a creatinine of 0.4. LFTs are slightly abnormal with an AST of 95, ALT of 163, albumin is at 2.7. Chest x-ray was done today and it shows adequate positioning of the Bivona tracheostomy tube which is around 2 cm above the polo. The patient has a defibrillator in place. Patient also has some left lower lobe atelectasis and some limited perihilar pulmonary infiltrates left more than right. Note that her chest x-ray findings have been stable for the past several days. In terms of treatment, the patient is on Lovenox 40 mg subcu for DVT prophylaxis. The patient is on no steroids. Antibiotic coverage includes a combination of Levaquin and Eraxis for presence of Radha glabrata in the sputum. The patient's cardiac rhythm is sinus. The patient is on amiodarone maintenance on milligrams on a daily basis. The patient is still on Keppra 1.5 g every 12 hours. No seizure activity has been noted. The patient is currently off Cleviprex Infusion. 09/29/2021, the patient is being seen for a follow-up. She is a case of COVID D related pneumonia with prolonged respiratory failure. The patient remains on a mechanical ventilator. This morning, she is on no sedation. She is an assist- control mode of mechanical ventilation with a tidal volume of 325, FiO2 is at 35%, PEEP is at 5 and rate is at 26. The morning blood gases showed a pH of 7.48 with a pCO2 of 44 and pO2 of 76. The chest x-ray from today was reviewed and it showed stable findings. Tracheostomy tube remains in a good location. No evidence of pneumothorax. The patient has a defibrillator/pacemaker or the left anterior chest area. Atelectatic changes and small effusion still seen in the left lung base. The patient has a #[address] in [address] No significant orotracheal secretions. She is arousable. She communicates. The plan is ultimately to transfer this patient to select specialty. She was interactive today and she was grimacing to painful stimulation. She was unable to carry a conversation yet. The patient remains on broad-spectrum antibiotics per she is on a combination of Levaquin and Eraxis. Levaquin is 4 MSSA in her sputum and Eraxis as for Radha breath and her sputum. The patient remains afebrile. She is hemodynamically stable. The white cell count is at 6.7 with a hemoglobin of 9.1, both are being stable. Leonor to stable, sodium is at 134 with a potassium level of 4.0, BUN is at 22 with a creatinine of 0.3. LFTs are slightly elevated and the patient continues to have a mild component of transam initis. In addition to the current antibiotic coverage, the patient is on Keppra for seizures in combination with Tegretol, IV Protonix for GI prophylaxis, Lovenox 40 mg subcu for DVT prophylaxis. The patient has completed course of steroids. The cardiac rhythm remains sinus. The patient remains on amiodarone 200 mg by mouth once a day. 09/30/2021, the patient is being seen for a follow-up. She is currently off sedation and she has been taken off sedation since 09/24/2021. Overnight, the patient remained off sedation and she is on a mechanical ventilator on assist control mode at the rate of 32, tidal volume of 325, FiO2 of 30% with a PEEP of 5. Chest x-ray from today shows some limited atelectatic changes and small effusion the left lung base. Otherwise no other acute abnormalities. The peak airway pressures around 25. The blood gases from today shows a pH of 7.5 with a pCO2 of 41 and pO2 of 81. She is a bit tachypneic. No signs of any significant respiratory distress patient opens her eyes spontaneously. Slow in responding. Nevertheless, the patient opens up her eyes. She is sluggish and responses. Nevertheless, she was able to use her hand and the Nascimento squeeze. Lower extremity is extremely weak. I believe there is a previous history of CVA with some residual weakness on the left upper extremity. No seizure activity has been noted. She is resting comfortably. She is a bit tachypneic and for that reason I made some ventilator adjustments. I give a try with a higher tidal volume. The patient continued to be. Subsequently, I tried a pressure support mode of mechanical ventilation and the patient generated tidal volume remained low and the patient continued to be tachypneic. Based on that, I will switch this patient to a pressure control mode of mechanical ventilation. Her blood pressure is fluctuating. She did have a acute hypertensive reaction and the patient was started on Cleviprex which is running at 4 mg an hour. She continued to receive enteral feeding for nutritional support and the patient is currently on vital AF at the rate of 41 mL an hour. The patient is also on Keppra and Tegretol for history of seizures. She is on Lovenox for DVT prophylaxis 40 mg subcu on a daily basis. Her echocardiogram was done earlier and the patient was found to have an impaired left ventricular ejection fraction of around 30-35%. The patient is having frequent PVCs on the quality assurance monitor final. Blood work from today is showing a white cell count of 6.6 with a hemoglobin of 9.1. The rest of the electrolytes show a sodium of 137, potassium is at 4, BUN is at 23 with a creatinine of 0.3. Potassium level is at 4. There is a mild component of transaminitis. The bilirubin is at 0.6. Total protein is at 6.4 with an albumin level of 3.0. 10/01/2021, the patient is much more awake and she's communicating. She is weak and she continues to have weak and poor weaning parameters. This will be checked on a daily basis. Meanwhile, the patient is on a pressure control mode of mechanical ventilation that she was placed on yesterday and her breathing is more comfortable and she seems to be much more synchronous on a mechanical ventilator. On today's evaluation, she is an assist-control of 24 with a pressure control of 18 and FiO2 of 30% with a PEEP of 5. The chest x-ray from today shows no acute abnormalities. Findings are essentially stable. The patient is a Bivona tracheostomy tube which is around 2.5 cm Centimeters above the polo. She has a PICC line in the right upper extremity. She also has a pacer/AICD over the left anterior chest area. The blood gases from today showed a pH of 7.55 with a pCO2 of 33 and pO2 of 64. As such there is a component of respiratory alkalosis along with a component of mild metabolic alkalosis. The patient's serum bicarb is currently at 28. Sodium is at 135. The white cell count is currently at 7.5 with a hemoglobin of 9.4. She is weak. She is moving her right side more efficiently compared to the left. Noted the patient has had a previous CVA with some residual left-sided weakness. She is able to reach out and grab with her hand although this is weak. She is able to wiggle her toes. She opens her eyes spontaneously. She communicates and answers simple questions . No seizure activity has been noted. The patient remains on anticoagulation with Lovenox for 40 mg subcu on a daily basis. She is on no sedation. She is on no drips to control the blood pressure. She is having frequent PACs and the patient was started on beta blockers yesterday and she was started on metoprolol 25 mg by mouth twice a day in addition to amiodarone 200 mg by mouth daily. Cardiac rhythm remains sinus. Note that she has impaired LV function with an ejection fraction of 30-35%. Enterofeeding is being delivered to this patient in the form of vital AF at the rate of 60 mL an hour. Ambrocio catheter in place. She has significant muscle atrophy and motor weakness in all 4 extremities. Objective - Vital Signs Vital signs: Vital Signs Temp 99.1 F 10/01/21 09:00 Pulse 105 H 10/01/21 09:00 Resp 24 10/01/21 09:00 BP 131/66 10/01/21 09:00 Pulse Ox 96 10/01/21 09:00 Intake & Output 09/30/21 10/01/21 10/01/21 18:59 06:59 18:59 Intake Total 0718.331 0935 130 Output Total 1000 920 120 Balance 464.000 510 10 Weight 57 kg Intake: IV 890 770 70 .9NS 20 140 220 20 Sodium Chloride 0.45% 1, 650 550 50 000 ml @ 50 mls/hr IV . Q20H [facility] Rx#:[id number] levETIRAcetam IV 1,500 mg 100 In Saline 1 100ml.bag @ 400 mls/hr IVPB Q12HR [facility] Rx#:[id number] Intake, IV Titration 107.000 Amount Clevidipine Butyrate 25 7.000 mg In Empty Bag 1 bag @ 1 MG/HR 2 mls/hr IV .Q24H [facility] Rx#:[id number] Levofloxacin 500Mg-D5w 100 Pmx 500 mg In Dextrose/ Water 1 100ml.bag @ 100 mls/hr IVPB Q24H [facility] Rx#: [id number] Tube Feeding 467 660 60 Output: Urine 1000 920 120 Other: Voiding Method Indwelling Catheter Indwelling Catheter ABP, PAP, CO, CI - Last Documented Arterial Blood Pressure 123/58 - Exam No acute distress, currently off propofol, with a midline tracheostomy. The patient has a #8 bivona tracheostomy tube. The patient is comfortable mechanical ventilator. No agitation. Opens up his eyes on continuously. following commands . Motor function is extremely weak in all 4 extremities. HEENT examination is grossly unremarkable. Tracheostomy tube is in place. Neck supple. Full range of motion. No adenopathy thyromegaly or neck vein distention. Midline tracheostomy is noted. Cardiovascular examination Cardiac exam revealed the PMI to be normally situated and sized. The rhythm was regular and no extrasystoles were noted during several minutes of auscultation. The first and second heart sounds were normal and physiologic splitting of the second heart sound was noted. There were no murmurs, rubs, clicks, or gallops. Lungs reveal bilateral expiratory rhonchi and wheezes. No crackles. Breath sounds are equal bilaterally. Abdomen soft, without bowel sounds. No masses. PEG tube is noted.Abdominal exam revealed normal bowel sounds. The abdomen was soft, non-tender, and without masses, organomegaly, or appreciable enlargement of the abdominal aorta. Extremities are intact. No cyanosis or clubbing. Trace edema is noted. Skin is without rash or lesion. The patient has a DTI pressure wound in her coccyx. Neurologic examination reveals a responsive patient, off of all sedation. He has some chronic weakness in her left side involving the left upper extremity related to previous CVA. Motor function the right side is extremely weak. She is barely able to wiggle her toes and unable to raise her legs against gravity. Reflexes are diminished in all 4 extremities. She follows commands. She is responsive. She is wide awake. Pupils are equally reactive to light. - Labs CBC & Chem 7: 10/01/21 05:56 10/01/21 05:56 Labs: Abnormal Lab Results - Last 24 Hours (Table) 09/30/21 09/30/21 09/30/21 Range/Units 11:27 11:35 21:08 RBC (3.80-5.40) m/uL Hgb (11.4-16.0) gm/dL Hct (34.0-46.0) % Lymphocytes # (1.0-4.8) k/uL ABG pH (7.35-7.45) ABG pCO2 47 H (35-45) mmHg ABG pO2 64 L (83-108) mmHg ABG HCO3 32 H (21-25) mmol/L ABG Total CO2 34 H (19-24) mmol/L ABG O2 Saturation 90.6 L (94-97) % Sodium (137-145) mmol/L BUN (7-17) mg/dL Creatinine (0.52-1.04) mg/dL Glucose (74-99) mg/dL POC Glucose (mg/dL) 123 H (75-99) mg/dL C-Reactive Protein (<1.0) mg/dL Urine Protein Trace H (Negative) 09/30/21 10/01/21 10/01/21 Range/Units 23:53 05:13 05:48 RBC (3.80-5.40) m/uL Hgb (11.4-16.0) gm/dL Hct (34.0-46.0) % Lymphocytes # (1.0-4.8) k/uL ABG pH 7.55 H (7.35-7.45) ABG pCO2 33 L (35-45) mmHg ABG pO2 64 L (83-108) mmHg ABG HCO3 29 H (21-25) mmol/L ABG Total CO2 30 H (19-24) mmol/L ABG O2 Saturation 92.7 L (94-97) % Sodium (137-145) mmol/L BUN (7-17) mg/dL Creatinine (0.52-1.04) mg/dL Glucose (74-99) mg/dL POC Glucose (mg/dL) 114 H 128 H (75-99) mg/dL C-Reactive Protein (<1.0) mg/dL Urine Protein (Negative) 10/01/21 10/01/21 Range/Units 05:56 05:56 RBC 2.90 L (3.80-5.40) m/uL Hgb 9.4 L (11.4-16.0) gm/dL Hct 28.9 L (34.0-46.0) % Lymphocytes # 0.9 L (1.0-4.8) k/uL ABG pH (7.35-7.45) ABG pCO2 (35-45) mmHg ABG pO2 (83-108) mmHg ABG HCO3 (21-25) mmol/L ABG Total CO2 (19-24) mmol/L ABG O2 Saturation (94-97) % Sodium 135 L (137-145) mmol/L BUN 23 H (7-17) mg/dL Creatinine 0.42 L (0.52-1.04) mg/dL Glucose 126 H (74-99) mg/dL POC Glucose (mg/dL) (75-99) mg/dL C-Reactive Protein 16.2 H (<1.0) mg/dL Urine Protein (Negative) Assessment and Plan Plan: Acute hypoxemic respiratory failure secondary to coronavirus associated pneumonia, status post intubation and mechanical ventilation on 09/11/2021. Status post tracheostomy and PEG tube placement on 09/23/2021. Chest x-ray findings are stable. Blood gases are stable. Tracheostomy tube is in place. The chest x-ray findings are stable. The patient has limited atelectasis/infiltration of the left lung base. She was quite tachypneic and a mechanical ventilator on a volume cycle mode. Based on that, I switched this patient to a pressure control. The weaning parameters are weak related to her significant neuromuscular weakness. The patient is currently on a pressure control mode of mechanical ventilation. Acute mental status changes, secondary to toxic/metabolic encephalopathy. The patient remains off sedation for now, neurologically the patient is gradually improving. There is a previous history of CVA with some residual left-sided weakness is noted on today's examination. She is to use her arms especially on the right. On today's evaluation, she is much more alert and she is communicating. She is continues to have significant motor weakness which is global weakness and there is chronic left-sided weakness related to previous CVA. Levaquin Methicillin sensitive staph aureus pneumonia, left lower lobe. The patient is currently on Levaquin, completed the course of Levaquin Dehydration, on admission, resolved. History of seizure disorder. The patient remains on Keppra and Tegretol Prior history of pulmonary embolism. Paroxysmal atrial fibrillation. Current rhythm is sinus and the patient is on oral amiodarone, and the patient is also on beta blockers and the patient is having frequent PVCs. Cardiomyopathy with ejection fraction of 30-35%. Status post pacemaker implantation/AICD History of saccular FIELD GAUGER aneurysm, 4 mm. Hypothyroidism. CAD. History of CVA in 2007. History of recurrent E. coli urinary tract infections. History of psoriasis. History of sacral/coccygeal decubitus ulcer. DTI Plan: Continue vent support, continue pressure control mode of mechanical ventilation. Pressure control with a drop down to 16 with a PEEP of 5 and FiO2 of 30% and the rate will be dropped down to 16 Daily weaning parameters daily 8 parameters are weak and poor and the patient is not able to tolerate pressure support mode of mechanical ventilation as the patient becomes tachypneic and she generates low tidal volume metoprolol 25 mg by mouth twice a day which also may help with her underlying PVCs and blood pressure control. Continue amiodarone 200 mg by mouth daily. She may benefit from select specialty transfer. Continue Keppra and tegretol Completed the course of Levaquin Complete the course of Eraxis, total of 7 days Discontinued arterial line inserted PICC line Continue wound care Continue Lovenox for DVT prophylaxis PT and passive range of motion Consults select specialty for possible transfer to select specialty for further weaning. Critically care evaluation, more than 30 minutes. Time with Patient: Greater than 30
[2021-10-01 11:54] LABS: Glucose,Whole Blood 117 mg/dL (75-99)
--- NOTE | 2021-10-01 13:40 | P.PN ---
Subjective Progress Note Date: 10/01/21 CHIEF COMPLAINT: COVID-19 pneumonia HISTORY OF PRESENT ILLNESS: Patient remains in the ICU intubated and on mechanical ventilation. Patient is status post tracheostomy and PEG tube placement on 09/23/21. Patient is tolerating tube feedings at 60ml/hr. patient is awake and following simple commands. Consult in place for select specialty for possible transfer to select specialty for further weaning. PHYSICAL EXAM: VITAL SIGNS: Reviewed. GENERAL:no acute distress. HEENT: Moist buccal mucosa. Head is atraumatic, normocephalic. Tracheostomy site clean and intact. Patient does have some sputum noted around trach site ABDOMEN: Soft. Nondistended. PEG tube site clean dry and intact NEUROLOGIC: awake ASSESSMENT: 1. Acute hypoxic respiratory failure secondary to COVID-19 pneumonia requiring mechanical ventilation 2. Severe protein calorie malnutrition PLAN: -Continue tube feedings -Continue ICU management -Continue supportive care -Discharge planning and process to select specialty Physician Housing Management Representative note has been reviewed by physician. Signing provider agrees with the documented findings, assessment, and plan of care. Objective - Vital Signs Vital signs: Vital Signs Temp 99.1 F 10/01/21 09:00 Pulse 104 H 10/01/21 13:00 Resp 22 10/01/21 13:00 BP 110/65 10/01/21 13:00 Pulse Ox 96 10/01/21 13:00 Intake & Output 09/30/21 10/01/21 10/01/21 18:59 06:59 18:59 Intake Total 9276.380 4014 1020 Output Total 1000 920 785 Balance 464.000 510 235 Weight 57 kg Intake: IV 890 770 540 .9NS 20 140 220 140 Sodium Chloride 0.45% 1, 650 550 300 000 ml @ 50 mls/hr IV . Q20H [facility] Rx#:[id number] levETIRAcetam IV 1,500 mg 100 100 In Saline 1 100ml.bag @ 400 mls/hr IVPB Q12HR [facility] Rx#:[id number] Intake, IV Titration 107.000 Amount Clevidipine Butyrate 25 7.000 mg In Empty Bag 1 bag @ 1 MG/HR 2 mls/hr IV .Q24H [facility] Rx#:[id number] Levofloxacin 500Mg-D5w 100 Pmx 500 mg In Dextrose/ Water 1 100ml.bag @ 100 mls/hr IVPB Q24H [facility] Rx#: [id number] Tube Feeding 467 660 420 Other 60 Output: Urine 1000 920 785 Other: Voiding Method Indwelling Catheter Indwelling Catheter Indwelling Catheter # Bowel Movements 1 ABP, PAP, CO, CI - Last Documented Arterial Blood Pressure 123/58 - Labs CBC & Chem 7: 10/01/21 05:56 10/01/21 05:56 Labs: Abnormal Lab Results - Last 24 Hours (Table) 09/30/21 09/30/21 10/01/21 Range/Units 21:08 23:53 05:13 RBC (3.80-5.40) m/uL Hgb (11.4-16.0) gm/dL Hct (34.0-46.0) % Lymphocytes # (1.0-4.8) k/uL ABG pH 7.55 H (7.35-7.45) ABG pCO2 33 L (35-45) mmHg ABG pO2 64 L (83-108) mmHg ABG HCO3 29 H (21-25) mmol/L ABG Total CO2 30 H (19-24) mmol/L ABG O2 Saturation 92.7 L (94-97) % Sodium (137-145) mmol/L BUN (7-17) mg/dL Creatinine (0.52-1.04) mg/dL Glucose (74-99) mg/dL POC Glucose (mg/dL) 114 H (75-99) mg/dL C-Reactive Protein (<1.0) mg/dL Urine Protein Trace H (Negative) 10/01/21 10/01/21 10/01/21 Range/Units 05:48 05:56 05:56 RBC 2.90 L (3.80-5.40) m/uL Hgb 9.4 L (11.4-16.0) gm/dL Hct 28.9 L (34.0-46.0) % Lymphocytes # 0.9 L (1.0-4.8) k/uL ABG pH (7.35-7.45) ABG pCO2 (35-45) mmHg ABG pO2 (83-108) mmHg ABG HCO3 (21-25) mmol/L ABG Total CO2 (19-24) mmol/L ABG O2 Saturation (94-97) % Sodium 135 L (137-145) mmol/L BUN 23 H (7-17) mg/dL Creatinine 0.42 L (0.52-1.04) mg/dL Glucose 126 H (74-99) mg/dL POC Glucose (mg/dL) 128 H (75-99) mg/dL C-Reactive Protein 16.2 H (<1.0) mg/dL Urine Protein (Negative) 10/01/21 Range/Units 11:52 RBC (3.80-5.40) m/uL Hgb (11.4-16.0) gm/dL Hct (34.0-46.0) % Lymphocytes # (1.0-4.8) k/uL ABG pH (7.35-7.45) ABG pCO2 (35-45) mmHg ABG pO2 (83-108) mmHg ABG HCO3 (21-25) mmol/L ABG Total CO2 (19-24) mmol/L ABG O2 Saturation (94-97) % Sodium (137-145) mmol/L BUN (7-17) mg/dL Creatinine (0.52-1.04) mg/dL Glucose (74-99) mg/dL POC Glucose (mg/dL) 117 H (75-99) mg/dL C-Reactive Protein (<1.0) mg/dL Urine Protein (Negative) Microbiology - Last 24 Hours (Table) 10/01/21 09:50 Sputum Culture - Preliminary Sputum
[2021-10-01] MEDS: CLEVIDIPINE BUTYRATE 25 MG in EMPTY BAG 1 BAG IV SCH ×2 (16:25→23:09)
[2021-10-01] MEDS ORDERED: VANCOMYCIN IV PER PHARMACY 1 EACH MISC MISCELLANE PRN (17:14)
[2021-10-01] MEDS: ANIDULAFUNGIN 100 MG in SODIUM CHLORIDE 0.9% 100 ML IVPB SCH (17:27)
[2021-10-01 17:40] LABS: Glucose,Whole Blood 129 mg/dL (75-99)
[2021-10-01] MEDS: VANCOMYCIN 1,000 MG in SODIUM CHLORIDE 0.9% 250 ML IVPB SCH (18:28)
[2021-10-02] MEDS: HYDROmorphone 1 MG/ML 1 ML SYRINGE IVP PRN ×4 (00:06→20:44)
[2021-10-02 00:30] LABS: Glucose,Whole Blood 125 mg/dL (75-99)
[2021-10-02] MEDS: INSULIN ASPART (NovoLOG) 100 UNIT/ML VIAL SQ SCH ×5 (00:30→23:23)
--- NOTE | 2021-10-02 00:59 | P.PN ---
Subjective Progress Note Date: 10/01/21 This is a pleasant 51 years old female with past medical history of Coronary Artery Disease, Heart Failure, CVA/TIA, Pulmonary Embolus (PE), Seizure Disorder, Last seizure 2009, CVA 2007 with L sided weakness arm and leg and has L foot drop, TIA 2018, cardiomyopathy, R PE and pneumothorax/pneumonia following leg fracture in 1994, gestational diabetes with all pregnancies , bilateral glaucoma with surgery, psoriasis in the past, UTIs. She is a status post Pacemaker, history of Bilateral eye surgery for glaucoma, Anxiety, Depression, Current every day smoker Patient presents because of altered mental status. Information was limited from the patient. It was obtained from the chart and medical staff. Also as per family patient was able to go to the bathroom, was more lethargic and tired over the last day. While in the emergency room focal mild seizure is noticed On admission patient had and fever of 101. She is tachypneic at 26-40, tachycardic 110-140, also she is hypoxic saturating 72% on room air Labs showing WBC of 10.5, hemoglobin of 16.3, platelet count of 197. INR 1.7. Sodium 164, creatinine 1.7, lactic acid elevated 4.6. Liver enzymes elevated with AST 202 and ALT 81. Bilirubin is normal at 1.3. Urine analysis is highly suspicious of infection Urine drug screen is negative Cash versus positive Chest x-ray showing left perihilar and left lower lobe area of infiltrate and small effusion correlates for pneumonia CT of the brain without contrast showing no intracranial hemorrhage, evidence of remote ischemic change. However there is vague low attenuation near the left thalamus and left cerebral peduncle. Acute ischemia in the differential diagnosis. Recommend stat MRI of brain with MRSA [place] as clinically warranted. In the emergency room patient was started on aztreonam and IV vancomycin, Keppra and heparin drip 09/11/2021 Patient today was still in the ICU, she was very weak and obtunded, she will wake up to certain stabilized and moans, she does not follow commands she cannot, gait she moved both extremities symmetrically. R on she had collapse of her left lung cancer and she has to be intubated and repeat chest x-ray showing better. A of the left lung. She is tachypneic with a breathing rate 22, no more fever since yesterday. Her sodium improved down to 144 and she was started on normal saline, creatinine 1.1, Ejection fraction showed 30-35% which is slice worsened from 06/2021 where it was 35-40% She remains on dexamethasone, IV vancomycin and clindamycin, heparin drip, Keppra and normal saline at 75 mL/h 09/12/2021 Patient with respiratory failures and she was intubated and placed on mechanical ventilation with pulmonary/critical care team following her mostly. There is no more seizure-like activity noticed. She still tachypneic with a breathing rate of 32 blood pressure 100/70, she is needing FiO2 of 80% and PEEP of 20. She has no more fevers since admission. Urine culture is growing gram-negative bacilli. Sodium is 146, WBCs is increased at 16.5 K. PH showing acidosis with 7.1 and elevated pCO2 at 83. Chest x-ray showing left sided opacities with near full. A of the left lung. Patient kept on antibiotics in the form of clindamycin and Levaquin and fluconazole. Also she remains on dexamethasone, and so a heparin to Lovenox. Also continued on seizure medication 1500 mg twice a day and IV fluids per pulmonary team. Neurology team on the case 09/13/2021 Patient remains intubated and sedated with pulmonary/critical care team following her closely. Her PEEP is lower today to 18. She remains on FiO2 of 50%. She is tachypneic at 32 about blood pressure is controlled. Her inflammatory markers are increased to LDH of 1009 and CRP of 25.1. Bicarb is elevated at 31 WBC is 17.7, sodium improved to 142. Creatinine improved to 0.6. Chest x-ray showed improving left lung infiltrate. PH is improved slightly 7.2 with pCO2 is slightly better at 79. Urine culture is growing E. coli which is sensitive to the antibiotics. Currently patient is covered with clindamycin, Levaquin and fluconazole. Also she is on dexamethasone 6 mg, Keppra 1500 mg and half-normal saline at 50 mL per hour Anticoagulation switch from heparin drip and to Lovenox 09/14/2021 Patient still intubated and sedated on mechanical ventilation with pulmonary/critical care team following her closely and just her vent setting. Today her FiO2 of 55%, and she is tachypneic at 33 breath per minute. Labs showing stable findings with sodium 141, creatinine 0.8, liver enzymes slightly elevated, LDH slightly down at 797 and CRP 2-3.2. Same leukocytosis at 14.7. Her pH is 7.2 and carbon dioxide is 82. D-dimer mildly elevated at 0.9, just x-ray showing bilateral infiltrate with no significant change from prior. She remains on the same antibiotic of clindamycin, Levaquin, dexamethasone, Keppra 1500 mg and half normal saline at 50 mL/h 09/15/2021 Patient in the ICU intubated and sedated, with pulmonary/critical care team following closely. FiO2 still 50%, hemodynamically showing both staple blood pressure 101/40, patient is tachypneic more than 30 per minutes. PEEP is lower. wbc of 11.3, hemoglobin 9.4, sodium 140, creatinine 0.8. chest x-ray: mild worsening infiltrate in the left lobe. patient continued with the same treatment of clindamycin, levaquin, dexamethasone, keppra and she received 1 l of normal saline today. 09/16/2021 Patient is seen and evaluated and follow-up continues to be closely monitored in the ICU. Multiple medical consultations following including infectious disease, pulmonary deputy of counter intelligence, and neurology. Patient continues on mechanical vent with an FiO2 of 50% and PEEP is 10. Weaning is being continued and PEEP is being titrated down to 8. Patient continues with sedation holidays and very minimal propofol and patient is now off Nimbex and very minimal stimulus noted. Patient response to painful stimulus minimally. Plan is for possible CT of the brain repeat this afternoon. Patient also being closely monitored for continued seizures of which she does have a past medical history of. Patient is also Covid positive and infectious disease is following and patient is maintained on clindamycin along with Levaquin. Chest x-ray today shows correlate for left lower lobe pneumonia versus atelectasis with possible associated effusion. 09/17/2021 Patient is seen in follow-up this morning closely monitored in the ICU. Neurology also following and patient is maintained on IV Keppra. Patient also continues on IV antibiotics in the form of aztreonam and clindamycin with infectious disease following. Patient urine culture showing E. coli. Chest x- ray today shows chronic emphysematous changes with left basilar acute infiltrate and/or atelectasis and likely small left pleural effusion all redemonstrated with no significant change from previous day. Neurology following And okay to resume anticoagulant as there is no evidence of new intracranial process or hemorrhage. Patient is off sedation and continues to be unresponsive. 09/18/2021 Patient is evaluated again this morning and continues to be in the ICU on mechanical vent and being closely monitored. FiO2 is at 45% and PEEP is 8. Patient continues to be off sedation with no response for over 24 hours. Neurology following as well and have discussed overall prognosis with family and family discussing with other family members about CODE STATUS and treatment plan moving forward. Infectious disease also following and patient is maintained on IV Levaquin along with clindamycin and aztreonam and will continue. Urine cultures finalized showing E. coli and sputum culture preliminary is pending at this time. 09/19/2020 Patient evaluated today in the ICU on mechanical ventilation. Fi02 at 45% with a PEEP of 8. Propofol infusing, Nimbex and Levophed are currently on hold. Pr ecedex discontinued. There has been no response, and mental status is not improving. Still no response to verbal stimuli. Patient is being followed closely by neurology for this and is on IV keppra and tegretol. EEG consistant with toxic metabolic encepholapthy. Repeat chest xray today shows similar opacities given patient rotation. Stable support tubes. Mild pulmonary vascular congestion correlate with serum BNP. Blood cultures negative, pending finalized, sputum negative so far. Labs reviewed today: WBC 9.2, hgb 10.3, sodium 138, potassium 3.8, BUN 33, Cr 0.76, glucose in the 110's, calcium 7.9, AST 250, ALT 78, Albumin 2.3. Vitals reviewed: Temp 97.4, HR 126, RR 44, Blood pressure 113/80, 96% oxygen saturation on mechanical ventilation. 09/20/2021 Patient evaluated in ICU on mechanical ventilation with an Fi02 of 45%, PEEP of 12. Chest xray today shows left lower lobe atelectasis versus pneumonia with similar findings as previous. BNP yesterday 12,500, however xray reviewed and d oes not appear to be showing heart failure. She is in negative fluid balance. Status was addressed with family by neurology who is awaiting a phone call back. White count 12.8, RBC 3.5, sodium 137 potassium 3.8, chloride 101, CO2 33, BUN 35, creatinine 0.68, blood sugars in the 120s, AST 424, ALT 115, alk phos 63. Running temps today 100.8, heart rate 123, respiratory rate 36, blood pressure 95/65, oxygen saturation of 93-94%. Blood pressures are on the softer side 88/55. Current infusions include propofol which has been resumed as patient has not shown any signs of neurological improvement while on a propofol break. 09/21/2021 Patient is seen in follow up today and continues to be on mechanical vent with an FI02 of 45% with a peep of 8 and multiple medical consultations following. Ch est xray similar from previous with copd and continued focal basilar left lower lobe retrocardiac consolidation or atelectasis. Patient is on propofol and general surgery has been consulted for peg and trach placement. Plan for surgery is tomorrow. 09/22/2021 Patient is seen and evaluated in follow-up this morning continues on mechanical ventilation with a PEEP of 8 and FiO2 is 45%. General surgery following an plan is for PEG and trach placement today due to prolonged mechanical ventilation and no improvements or weaning from the vent. Patient continues on tube feeding along with Lovenox which is currently on hold for the surgical procedure. Patient's chest x-ray today shows diffuse bilateral infiltrates that are stable with no pneumothorax or pleural effusion noted. Patient also had gallbladder ultrasound secondary to elevated liver functions and shows hepatomegaly otherwise unremarkable. Patient is continued on antifungal's along with vancomycin and infectious disease following closely. Sputum cultures preliminary showing Radha glabrata and Staphylococcus aureus and most recent blood cultures have been negative. 09/23/2021 Patient is seen in follow-up this morning and patient was unable to receive PEG and trach with general surgery following yesterday and plan is for today. Patient continues on mechanical vent and FiO2 is 45% with a PEEP of 8. Lovenox and tube feeding currently on hold. Chest xray reviewed and no acute changes from yesterday. Continues to be unresponsive. Prognosis remains poor. 09/24/2021 Patient is seen this morning status post PEG and trach placement and is resuming tube feedings with general surgery following. Patient continues on mechanical vent with an FiO2 of 40% and PEEP is 8. Per nursing staff working on weaning sedation and assessing neuro status. Continues with being obtunded and no purposeful movements noted. Chest xray shows COPD with improvement in previous left pleural effusion with mild patchy infiltrates/retrocardiac atelectasis noted. 09/25/2021 Patient is seen and evaluated today continues to be in the ICU on mechanical ventilation and continues on sedation with attempts at weaning. FI02 is 40% and peep of 8. Multiple medical consultations following. Plan is for repeat ct of the brain sometime this afternoon. Per nursing staff patient is tolerating tube feeds. Chest xray today shows suboptimal study due to positioning and unable to exclude some worsening atelectasis or infiltrate. 09/26/2021 Patient is in the MICU. Status post tracheostomy and PEG tube placement on 09/23/2021 remains on mechanical ventilator. FiO2 40% and PEEP of 8. Patient remains unresponsive and does not follow simple commands. Repeat CT done on 09/25/2021 showed findings consistent with cerebrovascular infarction bilaterally. May be indicative of otitis media bilaterally. No acute brain abnormality evident. Patient is being continued antibiotics in the form of Levaquin and Eraxis per bacterial pneumonia and sputum cultures growing Radha and staph aureus. Laboratory data showed WBC 8.7 hemoglobin 8.8 and platelets 330 Sodium 138 potassium 3.6 chloride 102 bicarb is 34 BUN 2020 creatinine 0.38 and calcium 8.4 Patient is being continued antibiotics and antiepileptic medications. Pulmonary, neurology and ID is on board. 09/27/2021 Patient is in the MICU. Status post tracheostomy and PEG tube placement and mechanical ventilator. Patient is off sedation. Currently on assist control with tidal volume 325 FiO2 35% and PEEP of 8. Patient remains obtunded and does not follow simple commands. Chest x-ray showed improvement in the opacity in the obscuring the left hemidiaphragm on the prior study. Most likely represents decreasing small pleural effusion Laboratory showed WBC 8.3 hemoglobin 9.5 platelets 102 sodium 138 potassium 4.0 chloride 103 bicarb is 31 BUN 2020 creatinine 0.45 calcium 8.8 patient is being current on antibiotics in the form of Levaquin and Eraxis. Decadron has been discontinued. 09/28/2021 Patient continues to be closely monitored in the ICU with multiple medical consultations following. Current FiO2 is 35% and PEEP is 5. She is off sedation. Per nursing staff, patient did squeeze her right hand although unresponsive on exam. Patient chest xray shows chronic emphysematous change with left basilar acute infiltrate and or atelectasis and likely small left pleural effusion are all redemonstrated with no significant change from one day earlier. Patient continues on tube feeding and tolerating. Social work following and working on placement. Peer to Peer for insurance required. Patient also continues on Levaquin and antifungal for MSSA and radha glabrata in the sputum. Continue local wound care. 09/29/2021 Patient is seen and evaluated this morning continues to be closely monitored in the ICU. Patient remains off sedation and continues on mechanical ventilation via tracheostomy with an FiO2 of 35% and PEEP is 5. Pulmonary deputy of counter intelligence following closely and continuing to wean and evaluating weaning parameters with possible attempts at trach collar. Patient is extremely lethargic although opening eyes and responding to commands appropriately and nodding yes and no appropriately to questions and commands. Patient continues to be flaccid on the left side although is able to squeeze writers hands this morning on the right and follow commands. Patient continues on anidulafungin along with IV Levaquin with infectious disease following closely. Patient tolerating tube feedings and will continue. 09/30/2021 Patient is seen today continues to be closely monitored in the ICU. Patient has been off sedation and currently maintained on mechanical ventilation via tracheostomy and PEEP is currently 5 with an FiO2 of 30%. Chest x-ray today shows COPD and continued small left pleural effusion with left basilar retrocardiac atelectasis and/or consolidation. Neurology to reevaluate. Patient was on cleviprex and being weaned. 10/01/2021 Patient is seen and evaluated this morning and per nursing staff, patient blood pressure has been elevated and on cleviprex. Patient is off sedation. Patient continued on mechanical ventilation via trach and FI02 is 30% with a peep of 5. Patient having some low grade temps and was off antibiotics and ID following closely and patient being started on vancomycin. Chest xray today shows chronic emphysematous change with left basilar opacity redemonstrated with no significant change from previous. Review of systems: unable to obtain as patient is lethargic Labs: WBC is 7.1, hemoglobin is 9.4, platelets are 257, sodium is 135, potassium 3.5, BUN 23, creatinine 0.42, calcium is 8.6, crp is 16.2, procalcitonin is 0.12 Active Medications Acetaminophen (Acetaminophen Tab 325 Mg Tab) 650 mg PO Q6HR PRN PRN Reason: Fever and/ or Pain Last Admin: 09/30/21 14:21 Dose: 650 mg Documented by: Amiodarone HCl (Amiodarone 200 Mg Tab) 200 mg PO DAILY [facility] Last Admin: 10/01/21 08:43 Dose: 200 mg Documented by: Artificial Tears (Artificial Tears-Hypromellose Drops 15 Ml Btl) 1 drops BOTH EYES QID PRN PRN Reason: Dry Eye(s) Last Admin: 09/16/21 08:58 Dose: 1 drops Documented by: Carbamazepine (Carbamazepine 200 Mg Tab) 200 mg PO TID [facility] Last Admin: 10/01/21 21:00 Dose: 200 mg Documented by: Chlorhexidine Gluconate (Chlorhexidine Gluconate 15 Ml Cup) 15 ml MUCOUS MEM BID [facility] Last Admin: 10/01/21 20:07 Dose: 15 ml Documented by: Cholecalciferol (Cholecalciferol 125 Mcg (5000 Iu) Tablet) 125 mcg PO DAILY [facility] Last Admin: 10/01/21 08:42 Dose: 125 mcg Documented by: Enoxaparin Sodium (Enoxaparin 40 Mg/0.4 Ml Syringe) 40 mg SQ DAILY [facility] Last Admin: 10/01/21 08:42 Dose: 40 mg Documented by: Hydromorphone HCl (Hydromorphone 1 Mg/Ml 1 Ml Syringe) 1 mg IVP Q2H PRN PRN Reason: Pain Last Admin: 10/02/21 00:06 Dose: 1 mg Documented by: Levetiracetam 1,500 mg/ IV (Solution) 100 mls @ 400 mls/hr IVPB Q12HR [facility] Last Admin: 10/01/21 20:07 Dose: 400 mls/hr Documented by: Sodium Chloride (Saline 0.45%) 1,000 mls @ 50 mls/hr IV .Q20H [facility] Last Admin: 09/30/21 21:55 Dose: 50 mls/hr Documented by: Anidulafungin 100 mg/ Sodium (Chloride) 130 mls @ 84 mls/hr IVPB DAILY@1700 [facility] Last Admin: 10/01/21 17:27 Dose: 84 mls/hr Documented by: Propofol 1,000 mg/ IV Solution 100 mls @ 0 mls/hr IV .Q0M [facility]; Protocol Last Titration: 09/24/21 11:28 Dose: 0 mcg/kg/min, 0 mls/hr Documented by: Clevidipine 25 mg/ IV Solution 50 mls @ 2 mls/hr IV .Q24H [facility]; Protocol Last Admin: 10/01/21 23:09 Dose: 2 mg/hr, 4 mls/hr Documented by: Vancomycin HCl 1,000 mg/ (Sodium Chloride) 250 mls @ 125 mls/hr IVPB Q8H [facility] Last Admin: 10/01/21 18:28 Dose: 125 mls/hr Documented by: Insulin Aspart (Insulin Aspart (Novolog) 100 Unit/Ml Vial) 0 unit SQ Q6H [facility]; Protocol Last Admin: 10/02/21 00:30 Dose: Not Given Documented by: Metoprolol Tartrate (Metoprolol Tartrate 25 Mg Tab) 25 mg PO BID [facility] Last Admin: 10/01/21 20:07 Dose: 25 mg Documented by: Miscellaneous Information (Potassium Replacement Protocol 1 Each Misc) 1 each MISCELLANE DAILY PRN; Protocol PRN Reason: Per Protocol Miscellaneous Information (Magnesium Replacement Protocol 1 Each Misc) 1 each MISCELLANE DAILY PRN; Protocol PRN Reason: Per Protocol Naloxone HCl (Naloxone 0.4 Mg/Ml 1 Ml Vial) 0.2 mg IV Q2M PRN PRN Reason: Opioid Reversal Pantoprazole Sodium (Pantoprazole 40 Mg/10 Ml Vial) 40 mg IV DAILY [facility] Last Admin: 10/01/21 08:42 Dose: 40 mg Documented by: Quetiapine Fumarate (Quetiapine 25 Mg Tab) 25 mg PO BID [facility] Last Admin: 10/01/21 20:07 Dose: 25 mg Documented by: Physical exam: GENERAL: The patient is intubated and off sedation although lethargic today, FiO2 is 30% and PEEP is 5 HEENT: Pupils are round and equally reacting to light. EOMI. No scleral icterus. No conjunctival pallor. Normocephalic, atraumatic. No pharyngeal erythema. No thyromegaly. CARDIOVASCULAR: S1 and S2 present. No murmurs, rubs, or gallops. PULMONARY: diminished breath sounds bilaterally with coarse rhonchi noted, coughing frequently on exam ABDOMEN: Soft, nontender, nondistended, normoactive bowel sounds. No palpable organomegaly. MUSCULOSKELETAL: No joint swelling or deformity. EXTREMITIES: No cyanosis, clubbing, or pedal edema. NEUROLOGICAL: lethargic and unable to completely assess, remains off sedation SKIN: No rashes. no petechiae. Assessment: Altered mental status possibly secondary to metabolic/toxic encephalopathy, ru led out other intracranial lesions, and possibly secondary to seizures Acute hypoxic respiratory failure secondary to COVID-19 pneumonia requiring mechanical ventilation status post peg tube and tracheostomy placement Left lower lobe pneumonia, rule out aspiration pneumonia Acute urinary tract infection, present on admission with culture showing E. coli, adequately treated Sepsis secondary to UTI and pneumonia Breakthrough seizure Bilateral interstitial Covid 19 pneumonia Increased inflammatory markers of covid 19 elevated troponins on admission, most likely type II ischemia secondary to acute kidney injury and possibly secondary to electrolyte abnormalities. Cardiomyopathy with most recent EF of 30-35% Hypernatremia, improved Acute kidney injury, improved Mild elevated liver enzymes History of coronary artery disease History of pulmonary embolism History of seizure disorder, last seizure was in 2009 as per documents History 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 left foot drop History of glaucoma status post surgery Status post permanent pacemaker Nicotine dependence GI prophylaxis DVT prophylaxis Full code Plan: This is a pleasant 51 years old female who presented with altered mental status, pneumonia, UTI, possible stroke although most likely old infarcts noted on CT, seizure and positive for covid pneumonia patient was intubated and continues on mechanical ventilation with a FiO2 of 35% and PEEP is 5. Patient is status post PEG and trach placement recently from prolonged mechanical ventilation. Continue with Keppra and neurology following as needed pulmonary and infectious disease following, continue with antifungals, Levaquin discontinued recently, crp is elevated and procalcitonin is .12 and having low grade temps and being started on vancomycin Continue with vitamin and zinc supplements along with Lovenox Overall Prognosis remains extremely guarded Social work following and working on possible LTAC and peer to peer denied and awaiting appeal. Will continue to monitor closely. Objective - Vital Signs Vital signs: Vital Signs Temp 99.1 F 10/01/21 09:00 Pulse 105 H 10/01/21 09:00 Resp 24 10/01/21 09:00 BP 131/66 10/01/21 09:00 Pulse Ox 96 10/01/21 09:00 Intake & Output 09/30/21 10/01/21 10/01/21 18:59 06:59 18:59 Intake Total 6932.032 9202 420 Output Total 1000 920 320 Balance 464.000 510 100 Weight 57 kg Intake: IV 890 770 210 .9NS 20 140 220 60 Sodium Chloride 0.45% 1, 650 550 150 000 ml @ 50 mls/hr IV . Q20H [facility] Rx#:[id number] levETIRAcetam IV 1,500 mg 100 In Saline 1 100ml.bag @ 400 mls/hr IVPB Q12HR [facility] Rx#:[id number] Intake, IV Titration 107.000 Amount Clevidipine Butyrate 25 7.000 mg In Empty Bag 1 bag @ 1 MG/HR 2 mls/hr IV .Q24H [facility] Rx#:[id number] Levofloxacin 500Mg-D5w 100 Pmx 500 mg In Dextrose/ Water 1 100ml.bag @ 100 mls/hr IVPB Q24H [facility] Rx#: [id number] Tube Feeding 467 660 180 Other 30 Output: Urine 1000 920 320 Other: Voiding Method Indwelling Catheter Indwelling Catheter ABP, PAP, CO, CI - Last Documented Arterial Blood Pressure 123/58 - Labs CBC & Chem 7: 10/01/21 05:56 10/01/21 05:56 Labs: Abnormal Lab Results - Last 24 Hours (Table) 09/30/21 09/30/21 09/30/21 Range/Units 11:27 11:35 21:08 RBC (3.80-5.40) m/uL Hgb (11.4-16.0) gm/dL Hct (34.0-46.0) % Lymphocytes # (1.0-4.8) k/uL ABG pH (7.35-7.45) ABG pCO2 47 H (35-45) mmHg ABG pO2 64 L (83-108) mmHg ABG HCO3 32 H (21-25) mmol/L ABG Total CO2 34 H (19-24) mmol/L ABG O2 Saturation 90.6 L (94-97) % Sodium (137-145) mmol/L BUN (7-17) mg/dL Creatinine (0.52-1.04) mg/dL Glucose (74-99) mg/dL POC Glucose (mg/dL) 123 H (75-99) mg/dL C-Reactive Protein (<1.0) mg/dL Urine Protein Trace H (Negative) 0210/01/21 10/01/21 Range/Units 23:53 05:13 05:48 RBC (3.80-5.40) m/uL Hgb (11.4-16.0) gm/dL Hct (34.0-46.0) % Lymphocytes # (1.0-4.8) k/uL ABG pH 7.55 H (7.35-7.45) ABG pCO2 33 L (35-45) mmHg ABG pO2 64 L (83-108) mmHg ABG HCO3 29 H (21-25) mmol/L ABG Total CO2 30 H (19-24) mmol/L ABG O2 Saturation 92.7 L (94-97) % Sodium (137-145) mmol/L BUN (7-17) mg/dL Creatinine (0.52-1.04) mg/dL Glucose (74-99) mg/dL POC Glucose (mg/dL) 114 H 128 H (75-99) mg/dL C-Reactive Protein (<1.0) mg/dL Urine Protein (Negative) 10/01/21 10/01/21 Range/Units 05:56 05:56 RBC 2.90 L (3.80-5.40) m/uL Hgb 9.4 L (11.4-16.0) gm/dL Hct 28.9 L (34.0-46.0) % Lymphocytes # 0.9 L (1.0-4.8) k/uL ABG pH (7.35-7.45) ABG pCO2 (35-45) mmHg ABG pO2 (83-108) mmHg ABG HCO3 (21-25) mmol/L ABG Total CO2 (19-24) mmol/L ABG O2 Saturation (94-97) % Sodium 135 L (137-145) mmol/L BUN 23 H (7-17) mg/dL Creatinine 0.42 L (0.52-1.04) mg/dL Glucose 126 H (74-99) mg/dL POC Glucose (mg/dL) (75-99) mg/dL C-Reactive Protein 16.2 H (<1.0) mg/dL Urine Protein (Negative)
[2021-10-02] MEDS: VANCOMYCIN 1,000 MG in SODIUM CHLORIDE 0.9% 250 ML IVPB SCH ×3 (01:43→16:32)
[2021-10-02] MEDS: CLEVIDIPINE BUTYRATE 25 MG in EMPTY BAG 1 BAG IV SCH ×2 (05:11→09:12)
[2021-10-02 05:16] LABS: Glucose,Whole Blood 120 mg/dL (75-99)
[2021-10-02 05:36] LABS: ABG HCO3 28 mmol/L (21-25); ABG Oxygen Saturation 95.8 % (94-97); ABG PCO2 35 mmHg (35-45); ABG PH 7.52 (7.35-7.45); ABG PO2 76 mmHg (83-108); ABG TCO2 29 mmol/L (19-24); Allen Test Performed? Yes
[2021-10-02 06:01] LABS: Basophils % (A) 1 %; Eosinophils # (A) 0.2 k/uL (0-0.7); Eosinophils % (A) 2 %; HCT 28.7 % (34.0-46.0); HGB 8.9 gm/dL (11.4-16.0); Hypochromasia Slight; Lymphocytes # (A) 0.8 k/uL (1.0-4.8); Lymphocytes % (A) 12 %; MCH 31.4 pg (25.0-35.0); MCV 101.2 fL (80.0-100.0); Macrocytosis Slight; Mean Platelet Volume 8.1; Monocytes # (A) 0.5 k/uL (0-1.0); Monocytes % (A) 7 %; Neutrophils # (A) 4.8 k/uL (1.3-7.7); Neutrophils % (A) 76 %; Platelet Count 219 k/uL (150-450); RBC 2.83 m/uL (3.80-5.40); RDW 14.4 % (11.5-15.5); WBC 6.4 k/uL (3.8-10.6)
[2021-10-02 06:21] LABS: African American GFR (CKD) >90 (>60 ml/min/1.73 sqM); Anion Gap 7 mmol/L; Blood Urea Nitrogen 21 mg/dL (7-17); Calcium 8.3 mg/dL (8.4-10.2); Carbon Dioxide 25 mmol/L (22-30); Chloride 104 mmol/L (98-107); Glucose 118 mg/dL (74-99); Non-African American GFR(CKD) >90 (>60 ml/min/1.73 sqM); Potassium 3.5 mmol/L (3.5-5.1); Sodium 136 mmol/L (137-145)
[2021-10-02] MEDS: POTASSIUM BICARBONATE/CIT AC 20 MEQ TABLET.EFF NG-TUBE SCH ×2 (06:53→09:05)
--- NOTE | 2021-10-02 08:33 | XR ---
EXAMINATION TYPE: XR chest 1V portable DATE OF EXAM: 10/02/2021 Comparison: 10/01/2021 Clinical History: 51-year-old female COVID Findings: Tracheostomy cannula. Left anterior chest wall AICD generator with right ventricular lead. Heart norm al size. Mild hyperinflation. Interstitial densities are similar. Retrocardiac and left basilar opaci ty persists. Right PICC tip at the caval atrial junction. Impression: COPD with similar interstitial densities and focal retrocardiac/left basilar infiltrate.
--- NOTE | 2021-10-02 09:00 | P.PN ---
Subjective Progress Note Date: 10/02/21 This is a 51-year-old female patient with established COVID 19 related pneumonia, prolonged respiratory failure, was currently in the intensive care unit being seen for a follow-up. 09/28/2021, the patient is being seen for a follow-up. She is on a mechanical ventilator. The chest and the tumors are diminished sense and for prolonged respiratory failure. This morning, the patient at the rate of 30 to assist- control mode with a tidal volume of 325, FiO2 of 35% and a PEEP of 8. She has a Bivona tracheostomy tube #8. Note that the patient has been off sedation since 09/24/2021. Neurologically, she is still unresponsive. She is not following any commands. The patient opens up her eyes spontaneously. She grimaces to painful stimulation. She is quite comfortable in a mechanical ventilator. She is hemodynamically stable on no pressors. She is receiving enteral feeding for nutritional support in the form of vital AF at the rate of 57 mL an hour. She is also on half-normal saline today to 50 mL an hour. She has a triple lumen catheter in her right femoral vein. She is also done and arterial line that is nonfunctioning. Her blood work today shows a pH of 7.44 with a pCO2 of 46 and pO2 of 73. White cell count and 6 with a hemoglobin of 9.2 and a platelet count of 364. Sodium is at 136. Normal renal function with a mean of 27 and a creatinine of 0.4. LFTs are slightly abnormal with an AST of 95, ALT of 163, albumin is at 2.7. Chest x-ray was done today and it shows adequate positioning of the Bivona tracheostomy tube which is around 2 cm above the polo. The patient has a defibrillator in place. Patient also has some left lower lobe atelectasis and some limited perihilar pulmonary infiltrates left more than right. Note that her chest x-ray findings have been stable for the past several days. In terms of treatment, the patient is on Lovenox 40 mg subcu for DVT prophylaxis. The patient is on no steroids. Antibiotic coverage includes a combination of Levaquin and Eraxis for presence of Radha glabrata in the sputum. The patient's cardiac rhythm is sinus. The patient is on amiodarone maintenance on milligrams on a daily basis. The patient is still on Keppra 1.5 g every 12 hours. No seizure activity has been noted. The patient is currently off Cleviprex Infusion. 09/29/2021, the patient is being seen for a follow-up. She is a case of COVID D related pneumonia with prolonged respiratory failure. The patient remains on a mechanical ventilator. This morning, she is on no sedation. She is an assist- control mode of mechanical ventilation with a tidal volume of 325, FiO2 is at 35%, PEEP is at 5 and rate is at 26. The morning blood gases showed a pH of 7.48 with a pCO2 of 44 and pO2 of 76. The chest x-ray from today was reviewed and it showed stable findings. Tracheostomy tube remains in a good location. No evidence of pneumothorax. The patient has a defibrillator/pacemaker or the left anterior chest area. Atelectatic changes and small effusion still seen in the left lung base. The patient has a #[address] in [address] No significant orotracheal secretions. She is arousable. She communicates. The plan is ultimately to transfer this patient to select specialty. She was interactive today and she was grimacing to painful stimulation. She was unable to carry a conversation yet. The patient remains on broad-spectrum antibiotics per she is on a combination of Levaquin and Eraxis. Levaquin is 4 MSSA in her sputum and Eraxis as for Radha breath and her sputum. The patient remains afebrile. She is hemodynamically stable. The white cell count is at 6.7 with a hemoglobin of 9.1, both are being stable. Leonor to stable, sodium is at 134 with a potassium level of 4.0, BUN is at 22 with a creatinine of 0.3. LFTs are slightly elevated and the patient continues to have a mild component of transam initis. In addition to the current antibiotic coverage, the patient is on Keppra for seizures in combination with Tegretol, IV Protonix for GI prophylaxis, Lovenox 40 mg subcu for DVT prophylaxis. The patient has completed course of steroids. The cardiac rhythm remains sinus. The patient remains on amiodarone 200 mg by mouth once a day. 09/30/2021, the patient is being seen for a follow-up. She is currently off sedation and she has been taken off sedation since 09/24/2021. Overnight, the patient remained off sedation and she is on a mechanical ventilator on assist control mode at the rate of 32, tidal volume of 325, FiO2 of 30% with a PEEP of 5. Chest x-ray from today shows some limited atelectatic changes and small effusion the left lung base. Otherwise no other acute abnormalities. The peak airway pressures around 25. The blood gases from today shows a pH of 7.5 with a pCO2 of 41 and pO2 of 81. She is a bit tachypneic. No signs of any significant respiratory distress patient opens her eyes spontaneously. Slow in responding. Nevertheless, the patient opens up her eyes. She is sluggish and responses. Nevertheless, she was able to use her hand and the Nascimento squeeze. Lower extremity is extremely weak. I believe there is a previous history of CVA with some residual weakness on the left upper extremity. No seizure activity has been noted. She is resting comfortably. She is a bit tachypneic and for that reason I made some ventilator adjustments. I give a try with a higher tidal volume. The patient continued to be. Subsequently, I tried a pressure support mode of mechanical ventilation and the patient generated tidal volume remained low and the patient continued to be tachypneic. Based on that, I will switch this patient to a pressure control mode of mechanical ventilation. Her blood pressure is fluctuating. She did have a acute hypertensive reaction and the patient was started on Cleviprex which is running at 4 mg an hour. She continued to receive enteral feeding for nutritional support and the patient is currently on vital AF at the rate of 41 mL an hour. The patient is also on Keppra and Tegretol for history of seizures. She is on Lovenox for DVT prophylaxis 40 mg subcu on a daily basis. Her echocardiogram was done earlier and the patient was found to have an impaired left ventricular ejection fraction of around 30-35%. The patient is having frequent PVCs on the satellite project site monitor. Blood work from today is showing a white cell count of 6.6 with a hemoglobin of 9.1. The rest of the electrolytes show a sodium of 137, potassium is at 4, BUN is at 23 with a creatinine of 0.3. Potassium level is at 4. There is a mild component of transaminitis. The bilirubin is at 0.6. Total protein is at 6.4 with an albumin level of 3.0. 10/01/2021, the patient is much more awake and she's communicating. She is weak and she continues to have weak and poor weaning parameters. This will be checked on a daily basis. Meanwhile, the patient is on a pressure control mode of mechanical ventilation that she was placed on yesterday and her breathing is more comfortable and she seems to be much more synchronous on a mechanical ventilator. On today's evaluation, she is an assist-control of 24 with a pressure control of 18 and FiO2 of 30% with a PEEP of 5. The chest x-ray from today shows no acute abnormalities. Findings are essentially stable. The patient is a Bivona tracheostomy tube which is around 2.5 cm Centimeters above the polo. She has a PICC line in the right upper extremity. She also has a pacer/AICD over the left anterior chest area. The blood gases from today showed a pH of 7.55 with a pCO2 of 33 and pO2 of 64. As such there is a component of respiratory alkalosis along with a component of mild metabolic alkalosis. The patient's serum bicarb is currently at 28. Sodium is at 135. The white cell count is currently at 7.5 with a hemoglobin of 9.4. She is weak. She is moving her right side more efficiently compared to the left. Noted the patient has had a previous CVA with some residual left-sided weakness. She is able to reach out and grab with her hand although this is weak. She is able to wiggle her toes. She opens her eyes spontaneously. She communicates and answers simple questions . No seizure activity has been noted. The patient remains on anticoagulation with Lovenox for 40 mg subcu on a daily basis. She is on no sedation. She is on no drips to control the blood pressure. She is having frequent PACs and the patient was started on beta blockers yesterday and she was started on metoprolol 25 mg by mouth twice a day in addition to amiodarone 200 mg by mouth daily. Cardiac rhythm remains sinus. Note that she has impaired LV function with an ejection fraction of 30-35%. Enterofeeding is being delivered to this patient in the form of vital AF at the rate of 60 mL an hour. Ambrocio catheter in place. She has significant muscle atrophy and motor weakness in all 4 extremities. 10/02/2021, patient is awake and arousable. Profoundly weak. Unable to elicit any motor activity in the lower extremities. Sensory is intact and the patient is able to sense pain. Nevertheless, she is unable to move her feet. The left upper extremity is chronically weak. Right upper extremity is functional although it's quite weak and the patient is unable to raise her arm against gravity. 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 She has a cough. Cranial nerves are intact. She is arousable. She follows commands. She answers questions appropriately. Previous CAT scan of the brain has shown old CVA. No new onset neurologic deficits otherwise for now. The patient has been off sedation for several days. She remains on a mechanical ventilator. Her weaning parameters are extremely weak. I tried to cut down on her pressure control yesterday and the patient did poorly in her generated volumes dropped significantly. Based on that, she has been maintained on a pressure control of 18 of water with an FiO2 of 30% and a PEEP of 5 and the rate of 16, assist- control mode of mechanical ventilation. The blood gases from today shows a pH of 7.515 with a pCO2 of 34 and pO2 of 75.8. Chest x-ray remains unchanged with some limited in the left lung base. The patient has a #8 Bivona [address] in [address]. She has grown staph aureus in her sputum. She has significant amount of orotracheal secretions and some secretions around the tracheostomy stoma. She remains on vancomycin. Cardiac rhythm remains sinus. She continues to have frequent PVCs. Her ejection fraction is around 30-35%. She remains on amiodarone 200 mg orally in addition to metoprolol 25 mg by mouth twice a day. She is on anticoagulation and she is receiving Lovenox 40 mg subcu on a daily basis. In terms of her blood work, the white cell count is at 6.4 with a hemoglobin of 8.9 and the plated count 19. BUN is at 21 with a creatinine of 0.34. Sodium is at 136 with a potassium level of 3.5. Glucose is 118. The patient remains on vital AF at the rate of 66 mL an hour. Hemodynamically stable on no pressors. Overall fluid balance over the past 24 hours has been +974 mL. PEG tube site is clean. The patient has a PICC line in her right upper extremity. Objective - Vital Signs Vital signs: Vital Signs Temp 98.9 F 10/02/21 04:00 Pulse 105 H 10/02/21 07:00 Resp 19 10/02/21 07:00 BP 144/65 10/02/21 07:00 Pulse Ox 94 L 10/02/21 07:00 Intake & Output 10/01/21 10/02/21 10/02/21 18:59 06:59 18:59 Intake Total 1765 2927.2 255 Output Total 1360 1190 150 Balance 405 1737.2 105 Weight 58.3 kg Intake: IV 920 890 70 .9NS 20 220 240 20 Anidulafungin 100 mg In 100 Sodium Chloride 0.9% 100 ml @ 84 mls/hr IVPB DAILY @1700 [facility]IE Rx#:[id number] Sodium Chloride 0.45% 1, 500 550 50 000 ml @ 50 mls/hr IV . Q20H [facility] Rx#:[id number] levETIRAcetam IV 1,500 mg 100 100 In Saline 1 100ml.bag @ 400 mls/hr IVPB Q12HR [facility] Rx#:[id number] Intake, IV Titration 125 1317.2 125 Amount Clevidipine Butyrate 25 67.2 mg In Empty Bag 1 bag @ 1 MG/HR 2 mls/hr IV .Q24H [facility] Rx#:[id number] Vancomycin 1,000 mg In 125 1250 125 Sodium Chloride 0.9% 250 ml @ 125 mls/hr IVPB Q8H [facility] Rx#:[id number] Tube Feeding 660 720 60 Other 60 Output: Urine 1360 1190 150 Other: Voiding Method Indwelling Catheter Indwelling Catheter Indwelling Catheter # Bowel Movements 1 1 ABP, PAP, CO, CI - Last Documented Arterial Blood Pressure 123/58 - Exam No acute distress, currently off propofol, with a midline tracheostomy. The patient has a #8 bivona tracheostomy tube. The patient is comfortable mechanical ventilator. No agitation. Opens up his eyes on continuously. following commands . Motor function is extremely weak in all 4 extremities. HEENT examination is grossly unremarkable. Tracheostomy tube is in place. Neck supple. Full range of motion. No adenopathy thyromegaly or neck vein distention. Midline tracheostomy is noted. Cardiovascular examination Cardiac exam revealed the PMI to be normally situated and sized. The rhythm was regular and no extrasystoles were noted during several minutes of auscultation. The first and second heart sounds were normal and physiologic splitting of the second heart sound was noted. There were no murmurs, rubs, clicks, or gallops. Lungs reveal bilateral expiratory rhonchi and wheezes. No crackles. Breath sounds are equal bilaterally. Abdomen soft, without bowel sounds. No masses. PEG tube is noted.Abdominal exam revealed normal bowel sounds. The abdomen was soft, non-tender, and without masses, organomegaly, or appreciable enlargement of the abdominal aorta. Extremities are intact. No cyanosis or clubbing. Trace edema is noted. Skin is without rash or lesion. The patient has a DTI pressure wound in her coccyx. Neurologic examination reveals a responsive patient, off of all sedation. He has some chronic weakness in her left side involving the left upper extremity related to previous CVA. Motor function the right side is extremely weak. She is barely able to wiggle her toes and unable to raise her legs against gravity. Reflexes are diminished in all 4 extremities. She follows commands. She is responsive. She is wide awake. Pupils are equally reactive to light. - Labs CBC & Chem 7: 10/02/21 05:36 10/02/21 05:36 Labs: Abnormal Lab Results - Last 24 Hours (Table) 10/01/21 10/01/21 10/01/21 Range/Units 05:56 11:52 17:38 RBC (3.80-5.40) m/uL Hgb (11.4-16.0) gm/dL Hct (34.0-46.0) % MCV (80.0-100.0) fL Lymphocytes # (1.0-4.8) k/uL ABG pH (7.35-7.45) ABG pO2 (83-108) mmHg ABG HCO3 (21-25) mmol/L ABG Total CO2 (19-24) mmol/L Sodium (137-145) mmol/L BUN (7-17) mg/dL Creatinine (0.52-1.04) mg/dL Glucose (74-99) mg/dL POC Glucose (mg/dL) 117 H 129 H (75-99) mg/dL Calcium (8.4-10.2) mg/dL Procalcitonin 0.12 H (0.02-0.09) ng/mL 10/02/21 10/02/2122 Range/Units 00:29 05:15 05:30 RBC (3.80-5.40) m/uL Hgb (11.4-16.0) gm/dL Hct (34.0-46.0) % MCV (80.0-100.0) fL Lymphocytes # (1.0-4.8) k/uL ABG pH 7.52 H (7.35-7.45) ABG pO2 76 L (83-108) mmHg ABG HCO3 28 H (21-25) mmol/L ABG Total CO2 29 H (19-24) mmol/L Sodium (137-145) mmol/L BUN (7-17) mg/dL Creatinine (0.52-1.04) mg/dL Glucose (74-99) mg/dL POC Glucose (mg/dL) 125 H 120 H (75-99) mg/dL Calcium (8.4-10.2) mg/dL Procalcitonin (0.02-0.09) ng/mL 10/02/21 10/02/21 Range/Units 05:36 05:36 RBC 2.83 L (3.80-5.40) m/uL Hgb 8.9 L (11.4-16.0) gm/dL Hct 28.7 L (34.0-46.0) % MCV 101.2 H (80.0-100.0) fL Lymphocytes # 0.8 L (1.0-4.8) k/uL ABG pH (7.35-7.45) ABG pO2 (83-108) mmHg ABG HCO3 (21-25) mmol/L ABG Total CO2 (19-24) mmol/L Sodium 136 L (137-145) mmol/L BUN 21 H (7-17) mg/dL Creatinine 0.34 L (0.52-1.04) mg/dL Glucose 118 H (74-99) mg/dL POC Glucose (mg/dL) (75-99) mg/dL Calcium 8.3 L (8.4-10.2) mg/dL Procalcitonin (0.02-0.09) ng/mL Microbiology - Last 24 Hours (Table) 10/01/21 09:50 Gram Stain - Preliminary Sputum Sputum Culture - Preliminary 10/01/21 05:56 Blood Culture - Preliminary Blood No Growth after 24 hours Assessment and Plan Plan: Acute hypoxemic respiratory failure secondary to coronavirus associated pneumonia, status post intubation and mechanical ventilation on 09/11/2021. Status post tracheostomy and PEG tube placement on 09/23/2021. Chest x-ray findings are stable. Blood gases are stable. Tracheostomy tube is in place. The chest x-ray findings are stable. The patient has limited atelectasis/infiltration of the left lung base. Patient remains on a pressure control mode of mechanical ventilation. Chest x-ray is stable with some limited infiltration of the left lung base. The staph aureus in the sputum and the patient is currently on vancomycin. Rest or secretions are quite abundant. The active problem for now as the extensive laboratory tests that we are encountering. The patient is awake and alert. Motor function are extremely low and for and there is absolutely no motor function lower extremities on today's evaluation. Right upper extremity is very weak. The patient has a weak cough. As such, her weaning parameters are poor and she doesn't seem to be doing any progress in terms of weaning. We'll recheck weaning parameters on a daily basis. Acute mental status changes, secondary to toxic/metabolic encephalopathy. The patient remains off sedation for now, neurologically the patient is gradually improving. There is a previous history of CVA with some residual left-sided weakness is noted on today's examination. She is to use her arms especially on the right. On today's evaluation, she is much more alert and she is communicating. She is continues to have significant motor weakness which is global weakness and there is chronic left-sided weakness related to previous CVA. Methicillin sensitive staph aureus pneumonia, left lower lobe. Dehydration, on admission, resolved. History of seizure disorder. The patient remains on Keppra and Tegretol Prior history of pulmonary embolism. Paroxysmal atrial fibrillation. Current rhythm is sinus and the patient is on oral amiodarone, and the patient is also on beta blockers and the patient is having frequent PVCs. Cardiomyopathy with ejection fraction of 30-35%. Status post pacemaker implantation/AICD History of saccular RADIO REPORTER aneurysm, 4 mm. Hypothyroidism. CAD. History of CVA in 2007. History of recurrent E. coli urinary tract infections. History of psoriasis. History of sacral/coccygeal decubitus ulcer. DTI Plan: Continue vent support, continue pressure control mode of mechanical ventilation. No changes will be done for today.. The patient was unable to tolerate any further weaning in terms of the pressure control Keep the patient also sedation for now. Asked neurology to reevaluate the patient regarding ongoing weakness Daily weaning parameters daily metoprolol 25 mg by mouth twice a day which also may help with her underlying PVCs and blood pressure control. Continue amiodarone 200 mg by mouth daily. I'm going to restart Eliquis 5 mg by mouth twice a day and discontinue the prophylactic dose of Lovenox for now. She may benefit from select specialty transfer. Continue Keppra and tegretol Continue vancomycin for now per IDs recommendations. Complete the course of Eraxis, total of 7 days Discontinued arterial line inserted PICC line Continue wound care Continue Lovenox for DVT prophylaxis PT and passive range of motion Prognosis poor. Weaning parameters are poor. Motor functions are extremely poor. Unable to wean at this point in time. She is awake. She is responsive and alert. Critically care evaluation, more than 30 minutes. Time with Patient: Greater than 30
[2021-10-02] MEDS: APIXABAN 5 MG TAB PO SCH ×2 (09:04→20:36)
[2021-10-02] MEDS: METOPROLOL TARTRATE 25 MG TAB PO SCH ×2 (09:05→23:23)
[2021-10-02] MEDS: carBAMazepine 200 MG TAB PO SCH ×3 (09:05→20:36)
[2021-10-02] MEDS: PANTOPRAZOLE 40 MG/10 ML VIAL IV SCH (09:05)
[2021-10-02] MEDS: AMIODARONE 200 MG TAB PO SCH (09:05)
[2021-10-02] MEDS: CHOLECALCIFEROL 125 MCG (5000 IU) TABLET PO SCH (09:05)
[2021-10-02] MEDS: CHLORHEXIDINE GLUCONATE 15 ML CUP MUCOUS MEM SCH ×2 (09:05→20:35)
[2021-10-02] MEDS: QUEtiapine 25 MG TAB PO SCH ×2 (09:06→20:36)
[2021-10-02] MEDS: SODIUM CHLORIDE 0.45% 1,000 ML IV SCH (09:06)
[2021-10-02] MEDS: levETIRAcetam IV 1,500 MG in SALINE 1 100ML.BAG IVPB SCH ×2 (09:47→20:35)
[2021-10-02 11:29] LABS: Glucose,Whole Blood 114 mg/dL (75-99)
[2021-10-02 12:09] LABS: Glucose,Whole Blood 129 mg/dL (75-99)
--- NOTE | 2021-10-02 13:42 | P.PN ---
Subjective Progress Note Date: 10/02/21 The patient is seen at bedside and per ICU team has significant weakness of lower extremities. Per nurse she continues to more only right hand no movement of other extremities. She continues to be trached and on ventilator. Objective - Vital Signs Vital signs: Vital Signs Temp 37 F L 10/02/21 12:00 Pulse 98 10/02/21 12:00 Resp 20 10/02/21 12:00 BP 98/60 10/02/21 12:00 Pulse Ox 96 10/02/21 12:00 Intake & Output 10/01/21 10/02/21 10/02/21 18:59 06:59 18:59 Intake Total 1765 2927.2 1162.834 Output Total 1360 1190 825 Balance 405 1737.2 337.834 Weight 58.3 kg 58.3 kg Intake: IV 920 890 520 .9NS 20 220 240 120 Anidulafungin 100 mg In 100 Sodium Chloride 0.9% 100 ml @ 84 mls/hr IVPB DAILY @1700 ADDIE Rx#:[id number] Sodium Chloride 0.45% 1, 500 550 300 000 ml @ 50 mls/hr IV . Q20H ADDIE Rx#:[id number] levETIRAcetam IV 1,500 mg 100 100 100 In Saline 1 100ml.bag @ 400 mls/hr IVPB Q12HR ADDIE Rx#:[id number] Intake, IV Titration 125 1317.2 307.834 Amount Clevidipine Butyrate 25 67.2 57.834 mg In Empty Bag 1 bag @ 1 MG/HR 2 mls/hr IV .Q24H ADDIE Rx#:[id number] Vancomycin 1,000 mg In 125 1250 250 Sodium Chloride 0.9% 250 ml @ 125 mls/hr IVPB Q8H ADDIE Rx#:[id number] Tube Feeding 660 720 335 Other 60 Output: Urine 1360 1190 825 Other: Voiding Method Indwelling Catheter Indwelling Catheter Indwelling Catheter # Bowel Movements 1 1 ABP, PAP, CO, CI - Last Documented Arterial Blood Pressure 123/58 - Exam GENERAL: The patient is lying in bed and is not in acute distress. LUNG: Trach on ventilator. NEUROLOGICAL: Higher mental function: Patient is awake but attempts to verbalize but no words coming out. She is following commands. Cranial nerves: Her primary gaze is midline. No tracking. No facial weakness. Motor: The strength is moving her hand antigravity u but not doing anything purposeful. Otherwise no movement noted. Decrease tone throughout. Sensation: Could not assess light touch. To painful stimuli not withdrawing throughout but grimaces to face. Reflex: is 0 throughout except brachioradialis is 1+ SOME OF THE WORK-UP: * Cash virus PCR is positive * Positive urinary tract infection with urine culture of E. coli. * Ammonia level 24 * Calcium is 8.9, Na is 137 (on 09/30/21) * CT of the head on 09/16/2021 was reported as old right hemispheric infarct without change. Old left posterior frontal lobe cortical infarct with that change. No acute abnormality. I personally reviewed the CT of the head and I do agree there is no acute or subacute ischemia there is no intracranial hemorrhage. The patient had old the strokes in the past predominantly over the right right MCA and right occipital and old left frontal. * Repeat CT head on 09/25/21: shows no acute ischemic process. Evidence of chronic bilateral encephalomalacia, stable as compared to last CT scans. * Patient's blood test shows Tegretol level <3.0, Keppra 79.2 and Neurontin level <1.0. * Urine drug seeing is not detected. Serum alcohol was less than 10. * EEG was performed on 09/11/2021 and it is reported as background slowing of at least moderate degree. This is suggestive of generalized cerebral dysfunction as can be seen with toxic metabolic encephalopathy or due to diffuse structural brain abnormality or postictal effect. No epileptiform activity was seen. - Labs CBC & Chem 7: 10/02/21 05:36 10/02/21 11:30 Labs: Abnormal Lab Results - Last 24 Hours (Table) 10/01/21 10/01/21 10/02/21 Range/Units 05:56 17:38 00:29 RBC (3.80-5.40) m/uL Hgb (11.4-16.0) gm/dL Hct (34.0-46.0) % MCV (80.0-100.0) fL Lymphocytes # (1.0-4.8) k/uL ABG pH (7.35-7.45) ABG pO2 (83-108) mmHg ABG HCO3 (21-25) mmol/L ABG Total CO2 (19-24) mmol/L Sodium (137-145) mmol/L BUN (7-17) mg/dL Creatinine (0.52-1.04) mg/dL Glucose (74-99) mg/dL POC Glucose (mg/dL) 129 H 125 H (75-99) mg/dL Calcium (8.4-10.2) mg/dL Procalcitonin 0.12 H (0.02-0.09) ng/mL 10/02/21 10/02/21 10/02/21 Range/Units 05:15 05:30 05:36 RBC 2.83 L (3.80-5.40) m/uL Hgb 8.9 L (11.4-16.0) gm/dL Hct 28.7 L (34.0-46.0) % MCV 101.2 H (80.0-100.0) fL Lymphocytes # 0.8 L (1.0-4.8) k/uL ABG pH 7.52 H (7.35-7.45) ABG pO2 76 L (83-108) mmHg ABG HCO3 28 H (21-25) mmol/L ABG Total CO2 29 H (19-24) mmol/L Sodium (137-145) mmol/L BUN (7-17) mg/dL Creatinine (0.52-1.04) mg/dL Glucose (74-99) mg/dL POC Glucose (mg/dL) 120 H (75-99) mg/dL Calcium (8.4-10.2) mg/dL Procalcitonin (0.02-0.09) ng/mL 10/02/21 10/02/21 10/02/21 Range/Units 05:36 11:26 12:07 RBC (3.80-5.40) m/uL Hgb (11.4-16.0) gm/dL Hct (34.0-46.0) % MCV (80.0-100.0) fL Lymphocytes # (1.0-4.8) k/uL ABG pH (7.35-7.45) ABG pO2 (83-108) mmHg ABG HCO3 (21-25) mmol/L ABG Total CO2 (19-24) mmol/L Sodium 136 L (137-145) mmol/L BUN 21 H (7-17) mg/dL Creatinine 0.34 L (0.52-1.04) mg/dL Glucose 118 H (74-99) mg/dL POC Glucose (mg/dL) 114 H 129 H (75-99) mg/dL Calcium 8.3 L (8.4-10.2) mg/dL Procalcitonin (0.02-0.09) ng/mL Microbiology - Last 24 Hours (Table) 10/01/21 09:50 Gram Stain - Preliminary Sputum Sputum Culture - Preliminary 10/01/21 05:56 Blood Culture - Preliminary Blood No Growth after 24 hours Assessment and Plan Assessment: * Altered mental status, likely due to toxic metabolic encephalopathy. Causes multifactorial as mentioned below--mentation is mildly better compared to initial presentation. 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 She was initially intubated then trach and on ventilator entire time and prolonged ICU stay 3 weeks, COVID 19 infection, recent UTI . Cannot rule out polyneuropathy. * Breakthrough seizure, likely due to multiple metabolic derangements. Patient had seizure disorder for long time, seizures in remission since 2009. * Acute Covid-19 infection with pneumonia. * Recent acute UTI with E. coli. * Severe hypernatremia, resolved * Status post tracheostomy and PEG placement 09/24/2021. * History of Atrial Fibrillation with RVR * Elevated cardiac enzymes--trending down * Acute kidney injury, likely due to dehydration/prerenal, now resolved. * Elevated liver enzymes, still elevated. 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 * History of pacemaker. Plan: * Recommend EMG with NCS as outpatient of upper and lower extremity. Recommend to continue with PT and OT and consider rehab therapy. * Repeat CT head on 09/25/21: shows no acute ischemic process. Evidence of chronic bilateral encephalomalacia, stable as compared to last CT scans. * Patient's blood test shows Tegretol level <3.0, Keppra 79.2 and Neurontin level <1.0. Elevated Keppra level was because of acute renal failure on presentation, which now has resolved. * Continue Tegretol 200 mg 3 times a day and Keppra 1500 mg twice a day * EEG was performed, which revealed background slowing of at least moderate degree. This is suggestive of generalized cerebral dysfunction as can be seen with toxic metabolic encephalopathy or due to diffuse structural brain abnormality or postictal effect. No epileptiform activity was seen. * Resume anticoagulation with Eliquis as early as possible from neurology point to prevent recurrent strokes from atrial fibrillation, unless any obvious contraindications. Cardiology also on board. Defer anticoagulation to IM, critical care and cardiology * Patient completed course of Levaquin total of 7 days. * I.D. team is on board. * Other medical management as per IM, critical care. * Upon discharge, the patient needs to follow-up with a neurologist within 1-2 weeks as outpatient. Pending placement to [facility] facility. From neurological perspective patient is making improvement compared to prior visits. The plan is discussed with the nurse. Will follow-up with patient sporadically. Phuc Serrano M.D. Neuro-Hospitalist Time with Patient: Less than 30
[2021-10-02] MEDS: ANIDULAFUNGIN 100 MG in SODIUM CHLORIDE 0.9% 100 ML IVPB SCH (16:48)
--- NOTE | 2021-10-02 16:57 | P.PN ---
Subjective Progress Note Date: 10/02/21 CHIEF COMPLAINT: COVID-19 pneumonia HISTORY OF PRESENT ILLNESS: Patient remains in the ICU intubated and on mechanical ventilation. Patient is status post tracheostomy and PEG tube placement on 09/23/21. Patient is tolerating tube feedings at 60ml/hr. patient is awake and following simple commands. Consult in place for select specialty for possible transfer to select specialty for further weaning. PHYSICAL EXAM: VITAL SIGNS: Reviewed. GENERAL:no acute distress. HEENT: Moist buccal mucosa. Head is atraumatic, normocephalic. Tracheostomy site clean and intact. Patient does have some sputum noted around trach site ABDOMEN: Soft. Nondistended. PEG tube site clean dry and intact NEUROLOGIC: awake ASSESSMENT: 1. Acute hypoxic respiratory failure secondary to COVID-19 pneumonia requiring mechanical ventilation 2. Severe protein calorie malnutrition PLAN: -Continue tube feedings -Continue ICU management -Continue supportive care -Discharge planning and process to select specialty Physician Guidance Consultant note has been reviewed by physician. Signing provider agrees with the documented findings, assessment, and plan of care. Objective - Vital Signs Vital signs: Vital Signs Temp 99.7 F H 10/02/21 16:00 Pulse 92 10/02/21 16:00 Resp 16 10/02/21 16:00 BP 113/66 10/02/21 16:00 Pulse Ox 96 10/02/21 16:00 Intake & Output 10/01/21 10/02/21 10/02/21 18:59 06:59 18:59 Intake Total 1765 2927.2 1582.834 Output Total 1360 1190 1030 Balance 405 1737.2 552.834 Weight 58.3 kg 58.3 kg Intake: IV 920 890 800 .9NS 20 220 240 200 Anidulafungin 100 mg In 100 Sodium Chloride 0.9% 100 ml @ 84 mls/hr IVPB DAILY @1700 ADDIE Rx#:[id number] Sodium Chloride 0.45% 1, 500 550 500 000 ml @ 50 mls/hr IV . Q20H ADDIE Rx#:[id number] levETIRAcetam IV 1,500 mg 100 100 100 In Saline 1 100ml.bag @ 400 mls/hr IVPB Q12HR ADDIE Rx#:[id number] Intake, IV Titration 125 1317.2 307.834 Amount Clevidipine Butyrate 25 67.2 57.834 mg In Empty Bag 1 bag @ 1 MG/HR 2 mls/hr IV .Q24H ADDIE Rx#:[id number] Vancomycin 1,000 mg In 125 1250 250 Sodium Chloride 0.9% 250 ml @ 125 mls/hr IVPB Q8H ADD[facility] Rx#:[id number] Tube Feeding 660 720 475 Other 60 Output: Urine 1360 1190 1030 Other: Voiding Method Indwelling Catheter Indwelling Catheter Indwelling Catheter # Bowel Movements 1 1 ABP, PAP, CO, CI - Last Documented Arterial Blood Pressure 123/58 - Labs CBC & Chem 7: 10/02/21 05:36 10/02/21 11:30 Labs: Abnormal Lab Results - Last 24 Hours (Table) 10/01/21 10/02/21 10/02/21 Range/Units 17:38 00:29 05:15 RBC (3.80-5.40) m/uL Hgb (11.4-16.0) gm/dL Hct (34.0-46.0) % MCV (80.0-100.0) fL Lymphocytes # (1.0-4.8) k/uL ABG pH (7.35-7.45) ABG pO2 (83-108) mmHg ABG HCO3 (21-25) mmol/L ABG Total CO2 (19-24) mmol/L Sodium (137-145) mmol/L BUN (7-17) mg/dL Creatinine (0.52-1.04) mg/dL Glucose (74-99) mg/dL POC Glucose (mg/dL) 129 H 125 H 120 H (75-99) mg/dL Calcium (8.4-10.2) mg/dL 10/02/21 10/02/21 10/02/21 Range/Units 05:30 05:36 05:36 RBC 2.83 L (3.80-5.40) m/uL Hgb 8.9 L (11.4-16.0) gm/dL Hct 28.7 L (34.0-46.0) % MCV 101.2 H (80.0-100.0) fL Lymphocytes # 0.8 L (1.0-4.8) k/uL ABG pH 7.52 H (7.35-7.45) ABG pO2 76 L (83-108) mmHg ABG HCO3 28 H (21-25) mmol/L ABG Total CO2 29 H (19-24) mmol/L Sodium 136 L (137-145) mmol/L BUN 21 H (7-17) mg/dL Creatinine 0.34 L (0.52-1.04) mg/dL Glucose 118 H (74-99) mg/dL POC Glucose (mg/dL) (75-99) mg/dL Calcium 8.3 L (8.4-10.2) mg/dL 10/02/21 10/02/21 Range/Units 11:26 12:07 RBC (3.80-5.40) m/uL Hgb (11.4-16.0) gm/dL Hct (34.0-46.0) % MCV (80.0-100.0) fL Lymphocytes # (1.0-4.8) k/uL ABG pH (7.35-7.45) ABG pO2 (83-108) mmHg ABG HCO3 (21-25) mmol/L ABG Total CO2 (19-24) mmol/L Sodium (137-145) mmol/L BUN (7-17) mg/dL Creatinine (0.52-1.04) mg/dL Glucose (74-99) mg/dL POC Glucose (mg/dL) 114 H 129 H (75-99) mg/dL Calcium (8.4-10.2) mg/dL Microbiology - Last 24 Hours (Table) 10/01/21 09:50 Gram Stain - Preliminary Sputum Sputum Culture - Preliminary 10/01/21 05:56 Blood Culture - Preliminary Blood No Growth after 24 hours
[2021-10-02] MEDS ORDERED: VANCOMYCIN TROUGH DUE 1 EACH MISC MISCELLANE ONE (17:00)
[2021-10-02 18:08] LABS: Glucose,Whole Blood 111 mg/dL (75-99)
[2021-10-02 23:10] LABS: Glucose,Whole Blood 92 mg/dL (75-99)
--- NOTE | 2021-10-02 23:21 | P.PN ---
Subjective Progress Note Date: 10/01/21 Principal diagnosis: Pneumonia pressure ulcer and multiple antibiotic allergies Patient is a 51-year-old female presenting to the hospital on September 10 for mental status changes patient did have a evidence of COVID-19 infection, with respiratory failure requiring intubation also with E. coli UTI and the patient did have multiple antibiotic allergies. The patient is status post tracheostomy and PEG tube placement on 09/23/2021 On today's evaluation that is to to 10/01/2021, patient did have a low-grade fever 100F, the patient is hemodynamically stable not requiring pressor support, the patient FiO2 is stable at 30%, no purulent secretions through the the ET or diarrhea has been reported by the nursing staff , patient is slowly waking up and is following commands per the nursing staff Objective - Vital Signs Vital signs: Vital Signs Temp 100.0 F H 10/01/21 16:00 Pulse 123 H 10/01/21 17:00 Resp 25 H 10/01/21 17:00 BP 129/75 10/01/21 17:00 Pulse Ox 95 10/01/21 17:00 Intake & Output 09/30/21 10/01/21 10/01/21 18:59 06:59 18:59 Intake Total 3389.153 3900 1540 Output Total 4067 825 4866 Balance 464.000 510 530 Weight 57 kg Intake: IV 890 770 820 .9NS 20 140 220 220 Sodium Chloride 0.45% 1, 650 550 500 000 ml @ 50 mls/hr IV . Q20H ADDIE Rx#:[id number] levETIRAcetam IV 1,500 mg 100 100 In Saline 1 100ml.bag @ 400 mls/hr IVPB Q12HR ADDIE Rx#:[id number] Intake, IV Titration 107.000 Amount Clevidipine Butyrate 25 7.000 mg In Empty Bag 1 bag @ 1 MG/HR 2 mls/hr IV .Q24H ADDIE Rx#:[id number] Levofloxacin 500Mg-D5w 100 Pmx 500 mg In Dextrose/ Water 1 100ml.bag @ 100 mls/hr IVPB Q24H ADDIE Rx#: [id number] Tube Feeding 467 660 660 Other 60 Output: Urine 0457 935 0804 Other: Voiding Method Indwelling Catheter Indwelling Catheter Indwelling Catheter # Bowel Movements 1 ABP, PAP, CO, CI - Last Documented Arterial Blood Pressure 123/58 - Exam GENERAL DESCRIPTION: Middle-aged male intubated on the vent, no distress. No tachypnea or accessory muscle of respiration use. LUNGS: Unlabored breathing. Decreased breath sound at the base. No wheeze or crackle. HEART: S1, S2, regular rate and rhythm. No loud murmur ABDOMEN: Soft, no tenderness , guarding or rigidity, no organomegaly EXTREMITIES: No edema of feet. Patient with unstageable sacral pressure ulcer with surrounding swelling redness has decreased, upper back unstageable pressure ulcer with black esher but with no surrounding tenderness and drainage - Labs CBC & Chem 7: 10/02/21 05:36 10/02/21 11:30 Labs: Abnormal Lab Results - Last 24 Hours (Table) 09/30/21 09/30/21 10/01/21 Range/Units 21:08 23:53 05:13 RBC (3.80-5.40) m/uL Hgb (11.4-16.0) gm/dL Hct (34.0-46.0) % Lymphocytes # (1.0-4.8) k/uL ABG pH 7.55 H (7.35-7.45) ABG pCO2 33 L (35-45) mmHg ABG pO2 64 L (83-108) mmHg ABG HCO3 29 H (21-25) mmol/L ABG Total CO2 30 H (19-24) mmol/L ABG O2 Saturation 92.7 L (94-97) % Sodium (137-145) mmol/L BUN (7-17) mg/dL Creatinine (0.52-1.04) mg/dL Glucose (74-99) mg/dL POC Glucose (mg/dL) 114 H (75-99) mg/dL C-Reactive Protein (<1.0) mg/dL Procalcitonin (0.02-0.09) ng/mL Urine Protein Trace H (Negative) 10/01/21 10/01/21 10/01/21 Range/Units 05:48 05:56 05:56 RBC (3.80-5.40) m/uL Hgb (11.4-16.0) gm/dL Hct (34.0-46.0) % Lymphocytes # (1.0-4.8) k/uL ABG pH (7.35-7.45) ABG pCO2 (35-45) mmHg ABG pO2 (83-108) mmHg ABG HCO3 (21-25) mmol/L ABG Total CO2 (19-24) mmol/L ABG O2 Saturation (94-97) % Sodium 135 L (137-145) mmol/L BUN 23 H (7-17) mg/dL Creatinine 0.42 L (0.52-1.04) mg/dL Glucose 126 H (74-99) mg/dL POC Glucose (mg/dL) 128 H (75-99) mg/dL C-Reactive Protein 16.2 H (<1.0) mg/dL Procalcitonin 0.12 H (0.02-0.09) ng/mL Urine Protein (Negative) 10/01/21 10/01/21 Range/Units 05:56 11:52 RBC 2.90 L (3.80-5.40) m/uL Hgb 9.4 L (11.4-16.0) gm/dL Hct 28.9 L (34.0-46.0) % Lymphocytes # 0.9 L (1.0-4.8) k/uL ABG pH (7.35-7.45) ABG pCO2 (35-45) mmHg ABG pO2 (83-108) mmHg ABG HCO3 (21-25) mmol/L ABG Total CO2 (19-24) mmol/L ABG O2 Saturation (94-97) % Sodium (137-145) mmol/L BUN (7-17) mg/dL Creatinine (0.52-1.04) mg/dL Glucose (74-99) mg/dL POC Glucose (mg/dL) 117 H (75-99) mg/dL C-Reactive Protein (<1.0) mg/dL Procalcitonin (0.02-0.09) ng/mL Urine Protein (Negative) Microbiology - Last 24 Hours (Table) 10/01/21 09:50 Sputum Culture - Preliminary Sputum Assessment and Plan (1) Pneumonia Current Visit: Yes Status: Acute Code(s): J18.9 - PNEUMONIA, UNSPECIFIED ORGANISM SNOMED Code(s): 236471461 (2) Allergy to multiple antibiotics Current Visit: Yes Status: Acute Code(s): Z88.1 - ALLERGY STATUS TO OTHER ANTIBIOTIC AGENTS SNOMED Code(s): 396121334 (3) COVID-19 Current Visit: Yes Status: Acute Code(s): U07.1 - COVID-19 SNOMED Code(s): 370582443 Plan: 1-Patient with acute respiratory failure which is multifactorial in this patient who did have a covid19 pneumonia and a concern for possible secondary bacterial pneumonia patient With a new fever blood and sputum cultures were done and blood culture has been negative, patient did have a penicillin and cephalosporin ALLERGY, patient is currently covered with Eraxis and vancomycin which will be continued and monitor clinical course closely 2-patient with unstageable sacral pressure ulcer as well as unstageable pressure ulcer to the upper back area, local wound care with the medahoney followed by moist dressing and keep the area off the pressure 3-left elbow pressure ulcer stage II with no cellulitis local wound care with a dry with visible dressing daily of the pressure Time with Patient: Less than 30
--- NOTE | 2021-10-02 23:23 | P.PN ---
Subjective Progress Note Date: 10/02/21 Principal diagnosis: Pneumonia pressure ulcer and multiple antibiotic allergies Patient is a 51-year-old female presenting to the hospital on September 10 for mental status changes patient did have a evidence of COVID-19 infection, with respiratory failure requiring intubation also with E. coli UTI and the patient did have multiple antibiotic allergies. The patient is status post tracheostomy and PEG tube placement on 09/23/2021 On today's evaluation that is to to 10/02/2021, patient is afebrile today, the patient is hemodynamically stable not requiring pressor support, the patient FiO2 is stable at 30%, no purulent secretions through the the ET or diarrhea has been reported by the nursing staff , no new changes Objective - Vital Signs Vital signs: Vital Signs Temp 98.8 F 10/02/21 20:00 Pulse 87 10/02/21 23:00 Resp 16 10/02/21 23:00 BP 85/53 10/02/21 23:00 Pulse Ox 99 10/02/21 23:00 Intake & Output 10/02/21 10/02/21 10/03/21 06:59 18:59 06:59 Intake Total 2927.2 1797.834 420 Output Total 1190 1090 275 Balance 1737.2 707.834 145 Weight 58.3 kg 58.3 kg Intake: IV 890 940 310 .9NS 20 240 240 60 Sodium Chloride 0.45% 1, 550 600 150 000 ml @ 50 mls/hr IV . Q20H ADDIE Rx#:[id number] levETIRAcetam IV 1,500 mg 100 100 100 In Saline 1 100ml.bag @ 400 mls/hr IVPB Q12HR ADDIE Rx#:[id number] Intake, IV Titration 1317.2 307.834 Amount Clevidipine Butyrate 25 67.2 57.834 mg In Empty Bag 1 bag @ 1 MG/HR 2 mls/hr IV .Q24H ADDIE Rx#:[id number] Vancomycin 1,000 mg In 1250 250 Sodium Chloride 0.9% 250 ml @ 125 mls/hr IVPB Q8H ADDIE Rx#:[id number] Tube Feeding 720 550 110 Output: Urine 1190 1090 275 Other: Voiding Method Indwelling Catheter Indwelling Catheter Indwelling Catheter # Bowel Movements 1 ABP, PAP, CO, CI - Last Documented Arterial Blood Pressure 123/58 - Exam GENERAL DESCRIPTION: Middle-aged male intubated on the vent, no distress. No tachypnea or accessory muscle of respiration use. LUNGS: Unlabored breathing. Decreased breath sound at the base. No wheeze or crackle. HEART: S1, S2, regular rate and rhythm. No loud murmur ABDOMEN: Soft, no tenderness , guarding or rigidity, no organomegaly EXTREMITIES: No edema of feet. Patient with unstageable sacral pressure ulcer with surrounding swelling redness has decreased, upper back unstageable pressure ulcer with black esher but with no surrounding tenderness and drainage - Labs CBC & Chem 7: 10/02/21 05:36 10/02/21 11:30 Labs: Abnormal Lab Results - Last 24 Hours (Table) 10/02/21 10/02/21 10/02/21 Range/Units 00:29 05:15 05:30 RBC (3.80-5.40) m/uL Hgb (11.4-16.0) gm/dL Hct (34.0-46.0) % MCV (80.0-100.0) fL Lymphocytes # (1.0-4.8) k/uL ABG pH 7.52 H (7.35-7.45) ABG pO2 76 L (83-108) mmHg ABG HCO3 28 H (21-25) mmol/L ABG Total CO2 29 H (19-24) mmol/L Sodium (137-145) mmol/L BUN (7-17) mg/dL Creatinine (0.52-1.04) mg/dL Glucose (74-99) mg/dL POC Glucose (mg/dL) 125 H 120 H (75-99) mg/dL Calcium (8.4-10.2) mg/dL 10/02/21 10/02/21 10/02/21 Range/Units 05:36 05:36 11:26 RBC 2.83 L (3.80-5.40) m/uL Hgb 8.9 L (11.4-16.0) gm/dL Hct 28.7 L (34.0-46.0) % MCV 101.2 H (80.0-100.0) fL Lymphocytes # 0.8 L (1.0-4.8) k/uL ABG pH (7.35-7.45) ABG pO2 (83-108) mmHg ABG HCO3 (21-25) mmol/L ABG Total CO2 (19-24) mmol/L Sodium 136 L (137-145) mmol/L BUN 21 H (7-17) mg/dL Creatinine 0.34 L (0.52-1.04) mg/dL Glucose 118 H (74-99) mg/dL POC Glucose (mg/dL) 114 H (75-99) mg/dL Calcium 8.3 L (8.4-10.2) mg/dL 10/02/21 10/02/21 Range/Units 12:07 18:06 RBC (3.80-5.40) m/uL Hgb (11.4-16.0) gm/dL Hct (34.0-46.0) % MCV (80.0-100.0) fL Lymphocytes # (1.0-4.8) k/uL ABG pH (7.35-7.45) ABG pO2 (83-108) mmHg ABG HCO3 (21-25) mmol/L ABG Total CO2 (19-24) mmol/L Sodium (137-145) mmol/L BUN (7-17) mg/dL Creatinine (0.52-1.04) mg/dL Glucose (74-99) mg/dL POC Glucose (mg/dL) 129 H 111 H (75-99) mg/dL Calcium (8.4-10.2) mg/dL Microbiology - Last 24 Hours (Table) 10/01/21 09:50 Gram Stain - Preliminary Sputum Sputum Culture - Preliminary 10/01/21 05:56 Blood Culture - Preliminary Blood No Growth after 24 hours Assessment and Plan (1) Pneumonia Current Visit: Yes Status: Acute Code(s): J18.9 - PNEUMONIA, UNSPECIFIED ORGANISM SNOMED Code(s): 662851724 (2) Allergy to multiple antibiotics Current Visit: Yes Status: Acute Code(s): Z88.1 - ALLERGY STATUS TO OTHER ANTIBIOTIC AGENTS SNOMED Code(s): 483073963 (3) COVID-19 Current Visit: Yes Status: Acute Code(s): U07.1 - COVID-19 SNOMED Code(s): 979232190 Plan: 1-Patient with acute respiratory failure which is multifactorial in this patient who did have a covid19 pneumonia and a concern for possible secondary bacterial pneumonia , initially sputum was positive for MSSA and Radha, patient's spike a fever after discontinuation of Levaquin, repeat culture has been ordered which is currently pending and the patient fever responding to the vancomycin to continue and monitor clinical course closely 2-patient with unstageable sacral pressure ulcer as well as unstageable pressure ulcer to the upper back area, local wound care with the medahoney followed by moist dressing and keep the area off the pressure 3-left elbow pressure ulcer stage II with no cellulitis local wound care with a dry with visible dressing daily of the pressure Time with Patient: Less than 30
[2021-10-03] MEDS: VANCOMYCIN 1,000 MG in SODIUM CHLORIDE 0.9% 250 ML IVPB SCH ×3 (02:31→18:19)
[2021-10-03] MEDS: HYDROmorphone 1 MG/ML 1 ML SYRINGE IVP PRN ×5 (03:52→20:45)
[2021-10-03] MEDS: SODIUM CHLORIDE 0.45% 1,000 ML IV SCH ×2 (04:02→23:21)
--- NOTE | 2021-10-03 06:03 | XR ---
EXAMINATION TYPE: XR chest 1V portable DATE OF EXAM: 10/03/2021 CLINICAL HISTORY: Difficulty breathing progress study. TECHNIQUE: Single AP portable semiupright view of the chest is obtained. COMPARISON: Chest x-ray from one day earlier and older studies. FINDINGS: Stable tracheostomy tube. Stable right-sided PICC line. Cardiac silhouette size is stable and within normal limits with single lead pacemaker/AICD redemonstr ated. Background Chronic emphysematous change with persistent left basilar opacity silhouetting left hemidiaphragm redemonstrated. Right lung remains clear. Osseous structures are intact. IMPRESSION: Chronic emphysematous change with chronic left basilar opacity redemonstrated. No signifi cant change from one day earlier.
[2021-10-03 06:10] LABS: Glucose,Whole Blood 113 mg/dL (75-99)
[2021-10-03 06:11] LABS: ABG Base Excess 5.1 mmol/L; ABG HCO3 28 mmol/L (21-25); ABG PCO2 33 mmHg (35-45); ABG PH 7.53 (7.35-7.45); ABG PO2 85 mmHg (83-108); ABG TCO2 29 mmol/L (19-24); Allen Test Performed? Yes
[2021-10-03 06:15] LABS: ABG Oxygen Saturation 98.8 % (94-97)
[2021-10-03] MEDS: INSULIN ASPART (NovoLOG) 100 UNIT/ML VIAL SQ SCH ×4 (07:03→23:22)
[2021-10-03 07:39] LABS: Basophils % (A) 1 %; Eosinophils # (A) 0.2 k/uL (0-0.7); Eosinophils % (A) 3 %; HCT 26.3 % (34.0-46.0); HGB 8.3 gm/dL (11.4-16.0); Hypochromasia Moderate; Lymphocytes # (A) 0.9 k/uL (1.0-4.8); Lymphocytes % (A) 13 %; MCH 32.7 pg (25.0-35.0); MCHC 31.8 g/dL (31.0-37.0); MCV 102.8 fL (80.0-100.0); Macrocytosis Slight; Mean Platelet Volume 8.2; Monocytes # (A) 0.4 k/uL (0-1.0); Monocytes % (A) 6 %; Neutrophils # (A) 5.1 k/uL (1.3-7.7); Neutrophils % (A) 76 %; Platelet Count 201 k/uL (150-450); RBC 2.56 m/uL (3.80-5.40); RDW 14.1 % (11.5-15.5); WBC 6.8 k/uL (3.8-10.6)
[2021-10-03 07:55] LABS: African American GFR (CKD) >90 (>60 ml/min/1.73 sqM); Anion Gap 6 mmol/L; Blood Urea Nitrogen 16 mg/dL (7-17); Calcium 8.4 mg/dL (8.4-10.2); Carbon Dioxide 26 mmol/L (22-30); Chloride 103 mmol/L (98-107); Glucose 102 mg/dL (74-99); Non-African American GFR(CKD) >90 (>60 ml/min/1.73 sqM); Potassium 3.5 mmol/L (3.5-5.1); Sodium 135 mmol/L (137-145)
[2021-10-03] MEDS: CHLORHEXIDINE GLUCONATE 15 ML CUP MUCOUS MEM SCH ×2 (08:14→20:01)
[2021-10-03] MEDS: POTASSIUM BICARBONATE/CIT AC 20 MEQ TABLET.EFF PO SCH ×2 (08:14→09:17)
[2021-10-03] MEDS: PANTOPRAZOLE 40 MG/10 ML VIAL IV SCH (08:14)
[2021-10-03] MEDS: CHOLECALCIFEROL 125 MCG (5000 IU) TABLET PO SCH (08:15)
[2021-10-03] MEDS: carBAMazepine 200 MG TAB PO SCH ×3 (08:15→20:01)
[2021-10-03] MEDS: AMIODARONE 200 MG TAB PO SCH (08:15)
[2021-10-03] MEDS: APIXABAN 5 MG TAB PO SCH ×2 (08:15→20:00)
[2021-10-03] MEDS: levETIRAcetam IV 1,500 MG in SALINE 1 100ML.BAG IVPB SCH ×2 (08:15→20:01)
[2021-10-03] MEDS: METOPROLOL TARTRATE 25 MG TAB PO SCH ×2 (08:15→20:01)
[2021-10-03] MEDS: QUEtiapine 25 MG TAB PO SCH ×2 (08:16→20:01)
[2021-10-03] MEDS ORDERED: FUROSEMIDE 10 MG/ML 4 ML VIAL IV STA (08:37)
--- NOTE | 2021-10-03 08:37 | P.PN ---
Subjective Progress Note Date: 10/03/21 This is a 51-year-old female patient with established COVID 19 related pneumonia, prolonged respiratory failure, was currently in the intensive care unit being seen for a follow-up. 09/28/2021, the patient is being seen for a follow-up. She is on a mechanical ventilator. The chest and the tumors are diminished sense and for prolonged respiratory failure. This morning, the patient at the rate of 30 to assist- control mode with a tidal volume of 325, FiO2 of 35% and a PEEP of 8. She has a Bivona tracheostomy tube #8. Note that the patient has been off sedation since 09/24/2021. Neurologically, she is still unresponsive. She is not following any commands. The patient opens up her eyes spontaneously. She grimaces to painful stimulation. She is quite comfortable in a mechanical ventilator. She is hemodynamically stable on no pressors. She is receiving enteral feeding for nutritional support in the form of vital AF at the rate of 57 mL an hour. She is also on half-normal saline today to 50 mL an hour. She has a triple lumen catheter in her right femoral vein. She is also done and arterial line that is nonfunctioning. Her blood work today shows a pH of 7.44 with a pCO2 of 46 and pO2 of 73. White cell count and 6 with a hemoglobin of 9.2 and a platelet count of 364. Sodium is at 136. Normal renal function with a mean of 27 and a creatinine of 0.4. LFTs are slightly abnormal with an AST of 95, ALT of 163, albumin is at 2.7. Chest x-ray was done today and it shows adequate positioning of the Bivona tracheostomy tube which is around 2 cm above the polo. The patient has a defibrillator in place. Patient also has some left lower lobe atelectasis and some limited perihilar pulmonary infiltrates left more than right. Note that her chest x-ray findings have been stable for the past several days. In terms of treatment, the patient is on Lovenox 40 mg subcu for DVT prophylaxis. The patient is on no steroids. Antibiotic coverage includes a combination of Levaquin and Eraxis for presence of Radha glabrata in the sputum. The patient's cardiac rhythm is sinus. The patient is on amiodarone maintenance on milligrams on a daily basis. The patient is still on Keppra 1.5 g every 12 hours. No seizure activity has been noted. The patient is currently off Cleviprex Infusion. 09/29/2021, the patient is being seen for a follow-up. She is a case of COVID D related pneumonia with prolonged respiratory failure. The patient remains on a mechanical ventilator. This morning, she is on no sedation. She is an assist- control mode of mechanical ventilation with a tidal volume of 325, FiO2 is at 35%, PEEP is at 5 and rate is at 26. The morning blood gases showed a pH of 7.48 with a pCO2 of 44 and pO2 of 76. The chest x-ray from today was reviewed and it showed stable findings. Tracheostomy tube remains in a good location. No evidence of pneumothorax. The patient has a defibrillator/pacemaker or the left anterior chest area. Atelectatic changes and small effusion still seen in the left lung base. The patient has a #[address] No significant orotracheal secretions. She is arousable. She communicates. The plan is ultimately to transfer this patient to select specialty. She was interactive today and she was grimacing to painful stimulation. She was unable to carry a conversation yet. The patient remains on broad-spectrum antibiotics per she is on a combination of Levaquin and Eraxis. Levaquin is 4 MSSA in her sputum and Eraxis as for Radha breath and her sputum. The patient remains afebrile. She is hemodynamically stable. The white cell count is at 6.7 with a hemoglobin of 9.1, both are being stable. Leonor to stable, sodium is at 134 with a potassium level of 4.0, BUN is at 22 with a creatinine of 0.3. LFTs are slightly elevated and the patient continues to have a mild component of transam initis. In addition to the current antibiotic coverage, the patient is on Keppra for seizures in combination with Tegretol, IV Protonix for GI prophylaxis, Lovenox 40 mg subcu for DVT prophylaxis. The patient has completed course of steroids. The cardiac rhythm remains sinus. The patient remains on amiodarone 200 mg by mouth once a day. 09/30/2021, the patient is being seen for a follow-up. She is currently off sedation and she has been taken off sedation since 09/24/2021. Overnight, the patient remained off sedation and she is on a mechanical ventilator on assist control mode at the rate of 32, tidal volume of 325, FiO2 of 30% with a PEEP of 5. Chest x-ray from today shows some limited atelectatic changes and small effusion the left lung base. Otherwise no other acute abnormalities. The peak airway pressures around 25. The blood gases from today shows a pH of 7.5 with a pCO2 of 41 and pO2 of 81. She is a bit tachypneic. No signs of any significant respiratory distress patient opens her eyes spontaneously. Slow in responding. Nevertheless, the patient opens up her eyes. She is sluggish and responses. Nevertheless, she was able to use her hand and the Nascimento squeeze. Lower extremity is extremely weak. I believe there is a previous history of CVA with some residual weakness on the left upper extremity. No seizure activity has been noted. She is resting comfortably. She is a bit tachypneic and for that reason I made some ventilator adjustments. I give a try with a higher tidal volume. The patient continued to be. Subsequently, I tried a pressure support mode of mechanical ventilation and the patient generated tidal volume remained low and the patient continued to be tachypneic. Based on that, I will switch this patient to a pressure control mode of mechanical ventilation. Her blood pressure is fluctuating. She did have a acute hypertensive reaction and the patient was started on Cleviprex which is running at 4 mg an hour. She continued to receive enteral feeding for nutritional support and the patient is currently on vital AF at the rate of 41 mL an hour. The patient is also on Keppra and Tegretol for history of seizures. She is on Lovenox for DVT prophylaxis 40 mg subcu on a daily basis. Her echocardiogram was done earlier and the patient was found to have an impaired left ventricular ejection fraction of around 30-35%. The patient is having frequent PVCs on the desk monitor. Blood work from today is showing a white cell count of 6.6 with a hemoglobin of 9.1. The rest of the electrolytes show a sodium of 137, potassium is at 4, BUN is at 23 with a creatinine of 0.3. Potassium level is at 4. There is a mild component of transaminitis. The bilirubin is at 0.6. Total protein is at 6.4 with an albumin level of 3.0. 10/01/2021, the patient is much more awake and she's communicating. She is weak and she continues to have weak and poor weaning parameters. This will be checked on a daily basis. Meanwhile, the patient is on a pressure control mode of mechanical ventilation that she was placed on yesterday and her breathing is more comfortable and she seems to be much more synchronous on a mechanical ventilator. On today's evaluation, she is an assist-control of 24 with a pressure control of 18 and FiO2 of 30% with a PEEP of 5. The chest x-ray from today shows no acute abnormalities. Findings are essentially stable. The patient is a Bivona tracheostomy tube which is around 2.5 cm Centimeters above the polo. She has a PICC line in the right upper extremity. She also has a pacer/AICD over the left anterior chest area. The blood gases from today showed a pH of 7.55 with a pCO2 of 33 and pO2 of 64. As such there is a component of respiratory alkalosis along with a component of mild metabolic alkalosis. The patient's serum bicarb is currently at 28. Sodium is at 135. The white cell count is currently at 7.5 with a hemoglobin of 9.4. She is weak. She is moving her right side more efficiently compared to the left. Noted the patient has had a previous CVA with some residual left-sided weakness. She is able to reach out and grab with her hand although this is weak. She is able to wiggle her toes. She opens her eyes spontaneously. She communicates and answers simple questions . No seizure activity has been noted. The patient remains on anticoagulation with Lovenox for 40 mg subcu on a daily basis. She is on no sedation. She is on no drips to control the blood pressure. She is having frequent PACs and the patient was started on beta blockers yesterday and she was started on metoprolol 25 mg by mouth twice a day in addition to amiodarone 200 mg by mouth daily. Cardiac rhythm remains sinus. Note that she has impaired LV function with an ejection fraction of 30-35%. Enterofeeding is being delivered to this patient in the form of vital AF at the rate of 60 mL an hour. Ambrocio catheter in place. She has significant muscle atrophy and motor weakness in all 4 extremities. 10/02/2021, patient is awake and arousable. Profoundly weak. Unable to elicit any motor activity in the lower extremities. Sensory is intact and the patient is able to sense pain. Nevertheless, she is unable to move her feet. The left upper extremity is chronically weak. Right upper extremity is functional although it's quite weak and the patient is unable to raise her arm against gravity. She is able to move her fingers and has a very weak drafter heating and ventilating. She has a cough. Cranial nerves are intact. She is arousable. She follows commands. She answers questions appropriately. Previous CAT scan of the brain has shown old CVA. No new onset neurologic deficits otherwise for now. The patient has been off sedation for several days. She remains on a mechanical ventilator. Her weaning parameters are extremely weak. I tried to cut down on her pressure control yesterday and the patient did poorly in her generated volumes dropped significantly. Based on that, she has been maintained on a pressure control of 18 of water with an FiO2 of 30% and a PEEP of 5 and the rate of 16, assist- control mode of mechanical ventilation. The blood gases from today shows a pH of 7.515 with a pCO2 of 34 and pO2 of 75.8. Chest x-ray remains unchanged with some limited in the left lung base. The patient has a #8 Bivona [address] in [address]. She has grown staph aureus in her sputum. She has significant amount of orotracheal secretions and some secretions around the tracheostomy stoma. She remains on vancomycin. Cardiac rhythm remains sinus. She continues to have frequent PVCs. Her ejection fraction is around 30-35%. She remains on amiodarone 200 mg orally in addition to metoprolol 25 mg by mouth twice a day. She is on anticoagulation and she is receiving Lovenox 40 mg subcu on a daily basis. In terms of her blood work, the white cell count is at 6.4 with a hemoglobin of 8.9 and the plated count 19. BUN is at 21 with a creatinine of 0.34. Sodium is at 136 with a potassium level of 3.5. Glucose is 118. The patient remains on vital AF at the rate of 66 mL an hour. Hemodynamically stable on no pressors. Overall fluid balance over the past 24 hours has been +974 mL. PEG tube site is clean. The patient has a PICC line in her right upper extremity. 10/03/2021, I came to find out the patient is much more awake. She is communicating. She is more active. She is moving the right upper extremity and she is able to raise against gravity. Movement is limited on the left. She is able to wiggle her toes. She has communicating. She is on a pressure control mode of mechanical ventilation. Her weaning parameters are extremely poor. The rapid shallow breathing index is above 150 and this was done on a pressure support of 5 and a PEEP of 5. At that point, I switch this patient to a pressure support mode of mechanical ventilation. She is on a pressure support of 16 with a PEEP of 5 and FiO2 of 30%. She is able to generate a tidal volume above 400. Her frequency to tidal volume ratio is at 48 at this point in time. The respiratory rate is in the mid 20s. She is able to maintain a saturation above 90%. The rest or secretions improve since yesterday. Her chest x-ray is not showing any acute abnormalities and there is ongoing left lower lobe atelectasis. The blood gases from earlier this morning while on a pressure control mode of mechanical ventilation showed a pH of 7.53 with a pCO2 of 33 and pO2 of 85. The patient is hemodynamically stable. Cardiac rhythm is sinus. She is tolerating enteral feeding for nutritional support via PEG tube. She is receiving vital AF at the rate of 35 mL an hour. Blood work from today shows a white cell count of 6.8 with a hemoglobin of 8.3 and a platelet count of 201. Rest of the electrodes show a sodium level of 135, serum bicarbonate 26 with a potassium level of 3.5. The sputum cultures showing MSSA and Radha. The patient was covered with vancomycin per IDs recommendation. The patient is also on Eraxis. Long-term articulation is with Eliquis 5 mg by mouth twice a day. As mentioned, she has not required sedation for more than a week. Objective - Vital Signs Vital signs: Vital Signs Temp 98.7 F 10/03/21 00:00 Pulse 98 10/03/21 07:00 Resp 19 10/03/21 07:00 BP 112/55 10/03/21 07:00 Pulse Ox 100 10/03/21 07:00 Intake & Output 10/02/21 10/03/21 10/03/21 18:59 06:59 18:59 Intake Total 0648.811 1174 105 Output Total 1090 1085 175 Balance 707.834 590 -70 Weight 58.3 kg 59.1 kg Intake: IV 940 940 70 .9NS 20 240 240 20 Sodium Chloride 0.45% 1, 600 600 50 000 ml @ 50 mls/hr IV . Q20H ADDIE Rx#:[id number] levETIRAcetam IV 1,500 mg 100 100 In Saline 1 100ml.bag @ 400 mls/hr IVPB Q12HR ADDIE Rx#:[id number] Intake, IV Titration 307.834 250 Amount Clevidipine Butyrate 25 57.834 mg In Empty Bag 1 bag @ 1 MG/HR 2 mls/hr IV .Q24H ADDIE Rx#:[id number] Vancomycin 1,000 mg In 250 250 Sodium Chloride 0.9% 250 ml @ 125 mls/hr IVPB Q8H ADDIE Rx#:[id number] Tube Feeding 550 425 35 Other 60 Output: Urine 1090 1085 175 Other: Voiding Method Indwelling Catheter Indwelling Catheter Indwelling Catheter ABP, PAP, CO, CI - Last Documented Arterial Blood Pressure 123/58 - Exam No acute distress, currently off propofol, with a midline tracheostomy. The az tient has a #8 bivona tracheostomy tube. The patient is comfortable mechanical ventilator. No agitation. Opens up his eyes on continuously. following commands . Motor function is extremely weak in all 4 extremities. HEENT examination is grossly unremarkable. Tracheostomy tube is in place. Neck supple. Full range of motion. No adenopathy thyromegaly or neck vein distention. Midline tracheostomy is noted. Cardiovascular examination Cardiac exam revealed the PMI to be normally situa sarah and sized. The rhythm was regular and no extrasystoles were noted during several minutes of auscultation. The first and second heart sounds were normal and physiologic splitting of the second heart sound was noted. There were no murmurs, rubs, clicks, or gallops. Lungs reveal bilateral expiratory rhonchi and wheezes. No crackles. Breath sounds are equal bilaterally. Abdomen soft, without bowel sounds. No masses. PEG tube is noted.Abdominal exam revealed normal bowel sounds. The abdomen was soft, non-tender, and without masses, organomegaly, or appreciable enlargement of the abdominal aorta. Extremities are intact. No cyanosis or clubbing. Trace edema is noted. Skin is without rash or lesion. The patient has a DTI pressure wound in her coccyx. Neurologic examination reveals a that the patient is much more awake compared to yesterday. There is improved motor function the right upper extremity. The patient is able to wiggle her toes. Significant motor weakness is still present for now. Nevertheless, much more awake and she's communicating. She is answering questions appropriately. She follows commands. - Labs CBC & Chem 7: 10/03/21 07:09 10/03/21 07:09 Labs: Abnormal Lab Results - Last 24 Hours (Table) 10/02/21 10/02/21 10/02/21 Range/Units 11:26 12:07 18:06 RBC (3.80-5.40) m/uL Hgb (11.4-16.0) gm/dL Hct (34.0-46.0) % MCV (80.0-100.0) fL Lymphocytes # (1.0-4.8) k/uL ABG pH (7.35-7.45) ABG pCO2 (35-45) mmHg ABG HCO3 (21-25) mmol/L ABG Total CO2 (19-24) mmol/L ABG O2 Saturation (94-97) % Sodium (137-145) mmol/L Creatinine (0.52-1.04) mg/dL Glucose (74-99) mg/dL POC Glucose (mg/dL) 114 H 129 H 111 H (75-99) mg/dL 10/03/21 10/03/21 10/03/21 Range/Units 05:44 06:08 07:09 RBC 2.56 L (3.80-5.40) m/uL Hgb 8.3 L (11.4-16.0) gm/dL Hct 26.3 L (34.0-46.0) % MCV 102.8 H (80.0-100.0) fL Lymphocytes # 0.9 L (1.0-4.8) k/uL ABG pH 7.53 H (7.35-7.45) ABG pCO2 33 L (35-45) mmHg ABG HCO3 28 H (21-25) mmol/L ABG Total CO2 29 H (19-24) mmol/L ABG O2 Saturation 98.8 H (94-97) % Sodium (137-145) mmol/L Creatinine (0.52-1.04) mg/dL Glucose (74-99) mg/dL POC Glucose (mg/dL) 113 H (75-99) mg/dL 10/03/21 Range/Units 07:09 RBC (3.80-5.40) m/uL Hgb (11.4-16.0) gm/dL Hct (34.0-46.0) % MCV (80.0-100.0) fL Lymphocytes # (1.0-4.8) k/uL ABG pH (7.35-7.45) ABG pCO2 (35-45) mmHg ABG HCO3 (21-25) mmol/L ABG Total CO2 (19-24) mmol/L ABG O2 Saturation (94-97) % Sodium 135 L (137-145) mmol/L Creatinine 0.38 L (0.52-1.04) mg/dL Glucose 102 H (74-99) mg/dL POC Glucose (mg/dL) (75-99) mg/dL Microbiology - Last 24 Hours (Table) 10/01/21 05:56 Blood Culture - Preliminary Blood No Growth after 48 hours 10/01/21 09:50 Gram Stain - Preliminary Sputum Sputum Culture - Preliminary Assessment and Plan Plan: Acute hypoxemic respiratory failure secondary to coronavirus associated pneumonia, status post intubation and mechanical ventilation on 09/11/2021. Status post tracheostomy and PEG tube placement on 09/23/2021. Chest x-ray findings are stable. Blood gases are stable. Tracheostomy tube is in place. The chest x-ray findings are stable. The patient has limited atelectasis/infiltration of the left lung base. Patient remains on a pressure control mode of mechanical ventilation. Chest x-ray is stable with some limited infiltration of the left lung base. The staph aureus in the sputum and the patient is currently on vancomycin. Rest or secretions are quite abundant. The active problem for now as the extensive laboratory tests that we are encountering. The patient is awake and alert. Motor function are extremely low and the patient continues to have very weak weaning parameters. She has significant neuromuscular weakness and this is going to be a very slow wean. The rapid shallow breathing index is quite high. This will be checked on a daily basis. The patient is on pressure control mode of mechanical ventilation. The patient was be started on a gradual pressure support wean. I'm going to start on a pressure support of 16 with a PEEP of 5 and FiO2 of 30%. Acute mental status changes, secondary to toxic/metabolic encephalopathy. The patient remains off sedation for now, neurologically the patient is gradually improving. There is a previous history of CVA with some residual left-sided weakness is noted on today's examination. She is to use her arms especially on the right. On today's evaluation, she is much more alert and she is communicating. She is continues to have significant motor weakness which is global weakness and there is chronic left-sided weakness related to previous CVA. Methicillin sensitive staph aureus pneumonia, left lower lobe. Dehydration, on admission, resolved. History of seizure disorder. The patient remains on Keppra and Tegretol Prior history of pulmonary embolism. Paroxysmal atrial fibrillation. Current rhythm is sinus and the patient is on oral amiodarone, and the patient is also on beta blockers and the patient is having frequent PVCs. Cardiomyopathy with ejection fraction of 30-35%. Status post pacemaker implantation/AICD History of saccular PLANE TENDER aneurysm, 4 mm. Hypothyroidism. CAD. History of CVA in 2007. History of recurrent E. coli urinary tract infections. History of psoriasis. History of sacral/coccygeal decubitus ulcer. DTI Plan: Continue vent support Ration, this is going to be a slow wean. I'm going to switch this patient to a pressure support mode of mechanical ventilation and she is currently on a pressure support of 16 with a PEEP of 5. Pressure support will be gradually dropped by 2 cm of water as long as the patient is comfortable clinically, respiratory rate is under 30 and a tidal volumes above 400. Keep the FiO2 at 30% for now. Give the patient dose of Lasix 40 mg IV push. She is in a positive fluid balance over the past several days. Chest x-ray findings are stable Keep the patient also sedation for now. Monitor motor functions Daily weaning parameters daily metoprolol 25 mg by mouth twice a day which also may help with her underlying PVCs and blood pressure control. Continue amiodarone 200 mg by mouth daily. Eliquis 5 mg by mouth twice a day She may benefit from select specialty transfer. Continue Keppra and tegretol Continue vancomycin for now per IDs recommendations. Complete the course of Eraxis, total of 7 days inserted PICC line Continue wound care Continue Lovenox for DVT prophylaxis PT and passive range of motion Prognosis poor. Weaning parameters are poor. Initiated day pressure support wean today as mentioned above. We are still working with [facility] for potential transfer at a later stage. Clinically stable. Motor function is improved. Mentation is much improved as the patient is much more awake on today's eval uation. Critically care evaluation, more than 30 minutes.
[2021-10-03 11:48] LABS: Glucose,Whole Blood 126 mg/dL (75-99)
[2021-10-03] MEDS: ANIDULAFUNGIN 100 MG in SODIUM CHLORIDE 0.9% 100 ML IVPB SCH (16:22)
[2021-10-03] MEDS: ACETAMINOPHEN TAB 325 MG TAB PO PRN (16:22)
[2021-10-03 17:43] LABS: Glucose,Whole Blood 132 mg/dL (75-99)
[2021-10-03 19:23] LABS: Amorphous Sediment,Urine Few /hpf; Appearance,Urine Cloudy (Clear); Bacteria,Urine Occasional /hpf; Bilirubin,Urine Negative (Negative); Blood,Urine Negative (Negative); Color,Urine Yellow; Glucose,Urine (UA) Negative (Negative); Ketones,Urine Negative (Negative); Leukocyte Esterase,Urine Negative (Negative); Mucus,Urine Rare /hpf; Nitrite,Urine Negative (Negative); Protein,Urine 1+ (Negative); RBC,Urine 2 /hpf (0-5); Specific Gravity,Urine 1.013 (1.001-1.035); Squamous Epithelial Cell,Urine <1 /hpf (0-4); Urobilinogen,Urine <2.0 mg/dL (<2.0); WBC,Urine 5 /hpf (0-5)
[2021-10-03 23:19] LABS: Glucose,Whole Blood 117 mg/dL (75-99)
[2021-10-04 05:28] LABS: Glucose,Whole Blood 114 mg/dL (75-99)
[2021-10-04] MEDS: VANCOMYCIN 1,000 MG in SODIUM CHLORIDE 0.9% 250 ML IVPB SCH ×3 (05:56→18:09)
[2021-10-04] MEDS: INSULIN ASPART (NovoLOG) 100 UNIT/ML VIAL SQ SCH ×3 (05:57→17:45)
--- NOTE | 2021-10-04 06:16 | XR ---
EXAMINATION TYPE: XR chest 1V portable DATE OF EXAM: 10/04/2021 CLINICAL HISTORY: Difficulty breathing and covid progress study. TECHNIQUE: Single AP portable upright view of the chest is obtained. COMPARISON: Chest x-ray from one day earlier and older studies. FINDINGS: Stable tracheostomy tube. Stable right-sided PICC line. Cardiac silhouette size is stable and within normal limits with single lead pacemaker/AICD redemonstr ated. Background Chronic emphysematous change with persistent left basilar opacity silhouetting left hemidiaphragm redemonstrated. Right lung remains clear. Osseous structures are intact. IMPRESSION: Chronic emphysematous change with chronic left basilar opacity redemonstrated. No signifi cant change from most recent x-rays.
[2021-10-04] MEDS: ACETAMINOPHEN TAB 325 MG TAB PO PRN (08:02)
[2021-10-04] MEDS: CHLORHEXIDINE GLUCONATE 15 ML CUP MUCOUS MEM SCH ×2 (08:02→20:05)
[2021-10-04] MEDS: carBAMazepine 200 MG TAB PO SCH ×3 (08:03→20:05)
[2021-10-04] MEDS: APIXABAN 5 MG TAB PO SCH ×2 (08:03→20:05)
[2021-10-04] MEDS: METOPROLOL TARTRATE 25 MG TAB PO SCH ×2 (08:03→20:05)
[2021-10-04] MEDS: PANTOPRAZOLE 40 MG/10 ML VIAL IV SCH (08:03)
[2021-10-04] MEDS: QUEtiapine 25 MG TAB PO SCH ×2 (08:03→20:05)
[2021-10-04] MEDS: AMIODARONE 200 MG TAB PO SCH (08:03)
[2021-10-04] MEDS: levETIRAcetam IV 1,500 MG in SALINE 1 100ML.BAG IVPB SCH ×2 (08:04→20:06)
[2021-10-04] MEDS: CHOLECALCIFEROL 125 MCG (5000 IU) TABLET PO SCH (08:04)
[2021-10-04] MEDS ORDERED: VANCOMYCIN TROUGH DUE 1 EACH MISC MISCELLANE ONE (09:00)
[2021-10-04 09:26] LABS: HCT 24.7 % (34.0-46.0); HGB 7.8 gm/dL (11.4-16.0); Hypochromasia Slight; MCH 31.9 pg (25.0-35.0); MCHC 31.6 g/dL (31.0-37.0); MCV 100.8 fL (80.0-100.0); Macrocytosis Slight; Mean Platelet Volume 8.3; Platelet Count 239 k/uL (150-450); RBC 2.45 m/uL (3.80-5.40); RDW 14.9 % (11.5-15.5); WBC 6.1 k/uL (3.8-10.6)
[2021-10-04 09:40] LABS: African American GFR (CKD) >90 (>60 ml/min/1.73 sqM); Anion Gap 5 mmol/L; Blood Urea Nitrogen 19 mg/dL (7-17); Calcium 8.3 mg/dL (8.4-10.2); Carbon Dioxide 28 mmol/L (22-30); Chloride 100 mmol/L (98-107); Glucose 111 mg/dL (74-99); Non-African American GFR(CKD) >90 (>60 ml/min/1.73 sqM); Potassium 3.6 mmol/L (3.5-5.1); Sodium 133 mmol/L (137-145)
--- NOTE | 2021-10-04 10:31 | P.PN ---
Subjective Progress Note Date: 10/04/21 This is a 51-year-old female patient with established COVID 19 related pneumonia, prolonged respiratory failure, was currently in the intensive care unit being seen for a follow-up. 09/28/2021, the patient is being seen for a follow-up. She is on a mechanical ventilator. The chest and the tumors are diminished sense and for prolonged respiratory failure. This morning, the patient at the rate of 30 to assist- control mode with a tidal volume of 325, FiO2 of 35% and a PEEP of 8. She has a Bivona tracheostomy tube #8. Note that the patient has been off sedation since 09/24/2021. Neurologically, she is still unresponsive. She is not following any commands. The patient opens up her eyes spontaneously. She grimaces to painful stimulation. She is quite comfortable in a mechanical ventilator. She is hemodynamically stable on no pressors. She is receiving enteral feeding for nutritional support in the form of vital AF at the rate of 57 mL an hour. She is also on half-normal saline today to 50 mL an hour. She has a triple lumen catheter in her right femoral vein. She is also done and arterial line that is nonfunctioning. Her blood work today shows a pH of 7.44 with a pCO2 of 46 and pO2 of 73. White cell count and 6 with a hemoglobin of 9.2 and a platelet count of 364. Sodium is at 136. Normal renal function with a mean of 27 and a creatinine of 0.4. LFTs are slightly abnormal with an AST of 95, ALT of 163, albumin is at 2.7. Chest x-ray was done today and it shows adequate positioning of the Bivona tracheostomy tube which is around 2 cm above the polo. The patient has a defibrillator in place. Patient also has some left lower lobe atelectasis and some limited perihilar pulmonary infiltrates left more than right. Note that her chest x-ray findings have been stable for the past several days. In terms of treatment, the patient is on Lovenox 40 mg subcu for DVT prophylaxis. The patient is on no steroids. Antibiotic coverage includes a combination of Levaquin and Eraxis for presence of Radha glabrata in the sputum. The patient's cardiac rhythm is sinus. The patient is on amiodarone maintenance on milligrams on a daily basis. The patient is still on Keppra 1.5 g every 12 hours. No seizure activity has been noted. The patient is currently off Cleviprex Infusion. 09/29/2021, the patient is being seen for a follow-up. She is a case of COVID D related pneumonia with prolonged respiratory failure. The patient remains on a mechanical ventilator. This morning, she is on no sedation. She is an assist- control mode of mechanical ventilation with a tidal volume of 325, FiO2 is at 35%, PEEP is at 5 and rate is at 26. The morning blood gases showed a pH of 7.48 with a pCO2 of 44 and pO2 of 76. The chest x-ray from today was reviewed and it showed stable findings. Tracheostomy tube remains in a good location. No evidence of pneumothorax. The patient has a defibrillator/pacemaker or the left anterior chest area. Atelectatic changes and small effusion still seen in the left lung base. The patient has a #[address] No significant orotracheal secretions. She is arousable. She communicates. The plan is ultimately to transfer this patient to select specialty. She was interactive today and she was grimacing to painful stimulation. She was unable to carry a conversation yet. The patient remains on broad-spectrum antibiotics per she is on a combination of Levaquin and Eraxis. Levaquin is 4 MSSA in her sputum and Eraxis as for Radha breath and her sputum. The patient remains afebrile. She is hemodynamically stable. The white cell count is at 6.7 with a hemoglobin of 9.1, both are being stable. Leonor to stable, sodium is at 134 with a potassium level of 4.0, BUN is at 22 with a creatinine of 0.3. LFTs are slightly elevated and the patient continues to have a mild component of transam initis. In addition to the current antibiotic coverage, the patient is on Keppra for seizures in combination with Tegretol, IV Protonix for GI prophylaxis, Lovenox 40 mg subcu for DVT prophylaxis. The patient has completed course of steroids. The cardiac rhythm remains sinus. The patient remains on amiodarone 200 mg by mouth once a day. 09/30/2021, the patient is being seen for a follow-up. She is currently off sedation and she has been taken off sedation since 09/24/2021. Overnight, the patient remained off sedation and she is on a mechanical ventilator on assist control mode at the rate of 32, tidal volume of 325, FiO2 of 30% with a PEEP of 5. Chest x-ray from today shows some limited atelectatic changes and small effusion the left lung base. Otherwise no other acute abnormalities. The peak airway pressures around 25. The blood gases from today shows a pH of 7.5 with a pCO2 of 41 and pO2 of 81. She is a bit tachypneic. No signs of any significant respiratory distress patient opens her eyes spontaneously. Slow in responding. Nevertheless, the patient opens up her eyes. She is sluggish and responses. Nevertheless, she was able to use her hand and the Nascimento squeeze. Lower extremity is extremely weak. I believe there is a previous history of CVA with some residual weakness on the left upper extremity. No seizure activity has been noted. She is resting comfortably. She is a bit tachypneic and for that reason I made some ventilator adjustments. I give a try with a higher tidal volume. The patient continued to be. Subsequently, I tried a pressure support mode of mechanical ventilation and the patient generated tidal volume remained low and the patient continued to be tachypneic. Based on that, I will switch this patient to a pressure control mode of mechanical ventilation. Her blood pressure is fluctuating. She did have a acute hypertensive reaction and the patient was started on Cleviprex which is running at 4 mg an hour. She continued to receive enteral feeding for nutritional support and the patient is currently on vital AF at the rate of 41 mL an hour. The patient is also on Keppra and Tegretol for history of seizures. She is on Lovenox for DVT prophylaxis 40 mg subcu on a daily basis. Her echocardiogram was done earlier and the patient was found to have an impaired left ventricular ejection fraction of around 30-35%. The patient is having frequent PVCs on the night monitor. Blood work from today is showing a white cell count of 6.6 with a hemoglobin of 9.1. The rest of the electrolytes show a sodium of 137, potassium is at 4, BUN is at 23 with a creatinine of 0.3. Potassium level is at 4. There is a mild component of transaminitis. The bilirubin is at 0.6. Total protein is at 6.4 with an albumin level of 3.0. 10/01/2021, the patient is much more awake and she's communicating. She is weak and she continues to have weak and poor weaning parameters. This will be checked on a daily basis. Meanwhile, the patient is on a pressure control mode of mechanical ventilation that she was placed on yesterday and her breathing is more comfortable and she seems to be much more synchronous on a mechanical ventilator. On today's evaluation, she is an assist-control of 24 with a pressure control of 18 and FiO2 of 30% with a PEEP of 5. The chest x-ray from today shows no acute abnormalities. Findings are essentially stable. The patient is a Bivona tracheostomy tube which is around 2.5 cm Centimeters above the polo. She has a PICC line in the right upper extremity. She also has a pacer/AICD over the left anterior chest area. The blood gases from today showed a pH of 7.55 with a pCO2 of 33 and pO2 of 64. As such there is a component of respiratory alkalosis along with a component of mild metabolic alkalosis. The patient's serum bicarb is currently at 28. Sodium is at 135. The white cell count is currently at 7.5 with a hemoglobin of 9.4. She is weak. She is moving her right side more efficiently compared to the left. Noted the patient has had a previous CVA with some residual left-sided weakness. She is able to reach out and grab with her hand although this is weak. She is able to wiggle her toes. She opens her eyes spontaneously. She communicates and answers simple questions . No seizure activity has been noted. The patient remains on anticoagulation with Lovenox for 40 mg subcu on a daily basis. She is on no sedation. She is on no drips to control the blood pressure. She is having frequent PACs and the patient was started on beta blockers yesterday and she was started on metoprolol 25 mg by mouth twice a day in addition to amiodarone 200 mg by mouth daily. Cardiac rhythm remains sinus. Note that she has impaired LV function with an ejection fraction of 30-35%. Enterofeeding is being delivered to this patient in the form of vital AF at the rate of 60 mL an hour. Ambrocio catheter in place. She has significant muscle atrophy and motor weakness in all 4 extremities. 10/02/2021, patient is awake and arousable. Profoundly weak. Unable to elicit any motor activity in the lower extremities. Sensory is intact and the patient is able to sense pain. Nevertheless, she is unable to move her feet. The left upper extremity is chronically weak. Right upper extremity is functional although it's quite weak and the patient is unable to raise her arm against gravity. She is able to move her fingers and has a very weak line and frame poler. She has a cough. Cranial nerves are intact. She is arousable. She follows commands. She answers questions appropriately. Previous CAT scan of the brain has shown old CVA. No new onset neurologic deficits otherwise for now. The patient has been off sedation for several days. She remains on a mechanical ventilator. Her weaning parameters are extremely weak. I tried to cut down on her pressure control yesterday and the patient did poorly in her generated volumes dropped significantly. Based on that, she has been maintained on a pressure control of 18 of water with an FiO2 of 30% and a PEEP of 5 and the rate of 16, assist- control mode of mechanical ventilation. The blood gases from today shows a pH of 7.515 with a pCO2 of 34 and pO2 of 75.8. Chest x-ray remains unchanged with some limited in the left lung base. The patient has a #8 [address]ivona [address] in [address]. She has grown staph aureus in her sputum. She has significant amount of orotracheal secretions and some secretions around the tracheostomy stoma. She remains on vancomycin. Cardiac rhythm remains sinus. She continues to have frequent PVCs. Her ejection fraction is around 30-35%. She remains on amiodarone 200 mg orally in addition to metoprolol 25 mg by mouth twice a day. She is on anticoagulation and she is receiving Lovenox 40 mg subcu on a daily basis. In terms of her blood work, the white cell count is at 6.4 with a hemoglobin of 8.9 and the plated count 19. BUN is at 21 with a creatinine of 0.34. Sodium is at 136 with a potassium level of 3.5. Glucose is 118. The patient remains on vital AF at the rate of 66 mL an hour. Hemodynamically stable on no pressors. Overall fluid balance over the past 24 hours has been +974 mL. PEG tube site is clean. The patient has a PICC line in her right upper extremity. 10/03/2021, I came to find out the patient is much more awake. She is communicating. She is more active. She is moving the right upper extremity and she is able to raise against gravity. Movement is limited on the left. She is able to wiggle her toes. She has communicating. She is on a pressure control mode of mechanical ventilation. Her weaning parameters are extremely poor. The rapid shallow breathing index is above 150 and this was done on a pressure support of 5 and a PEEP of 5. At that point, I switch this patient to a pressure support mode of mechanical ventilation. She is on a pressure support of 16 with a PEEP of 5 and FiO2 of 30%. She is able to generate a tidal volume above 400. Her frequency to tidal volume ratio is at 48 at this point in time. The respiratory rate is in the mid 20s. She is able to maintain a saturation above 90%. The rest or secretions improve since yesterday. Her chest x-ray is not showing any acute abnormalities and there is ongoing left lower lobe atelectasis. The blood gases from earlier this morning while on a pressure control mode of mechanical ventilation showed a pH of 7.53 with a pCO2 of 33 and pO2 of 85. The patient is hemodynamically stable. Cardiac rhythm is sinus. She is tolerating enteral feeding for nutritional support via PEG tube. She is receiving vital AF at the rate of 35 mL an hour. Blood work from today shows a white cell count of 6.8 with a hemoglobin of 8.3 and a platelet count of 201. Rest of the electrodes show a sodium level of 135, serum bicarbonate 26 with a potassium level of 3.5. The sputum cultures showing MSSA and Radha. The patient was covered with vancomycin per IDs recommendation. The patient is also on Eraxis. Long-term articulation is with Eliquis 5 mg by mouth twice a day. As mentioned, she has not required sedation for more than a week. 10/04/2021, the patient is being seen in follow-up in the intensive care unit. This morning, the patient remains off sedation. She is awake and alert. She remains on a pressure control mode of mechanical ventilation. She is at the rat e of 16 with a pressure control of 18 with an FiO2 of 40% with a PEEP of 5. No blood gases available from today. Chest x-ray showing stable findings with a persistent left lower lobe effusion/consolidation. The patient started spiking temperature as of yesterday. T-max was at 11.9. She is still febrile with a temperature 100.1. I was not informed of this changes and the focal went right away to infectious disease. The patient was given 2 sets of blood cultures. Noted the patient was already receiving a combination of vancomycin and Eraxis. That is his sputum culture is still showing Radha. The patient has a PICC line in her right upper extremity. The exit site is dry clean and intact. No diarrhea. No other clear source of infection at this point in time. Infections on the case. Pro-calcitonin level will be checked. She remains hemodynamically stable. She is on no pressors. Cardiac rhythm is sinus with frequent PACs and PVCs. Fluid balance has been +1.2 L over the past 24 hours. Note that the patient's weaning parameters of the persistently weak. Nevertheless, she was able to tolerate a full total of 4 hours a pressure support mode of mechanical ventilation with a pressure support of 15 and a PEEP of 5 Objective - Vital Signs Vital signs: Vital Signs Temp 100.1 F H 10/04/21 08:00 Pulse 85 10/04/21 09:00 Resp 16 10/04/21 09:00 BP 112/70 10/04/21 09:00 Pulse Ox 97 10/04/21 09:00 Intake & Output 10/03/21 10/04/21 10/04/21 18:59 06:59 18:59 Intake Total 2315 1250 370 Output Total 4205 795 0 Balance -1890 455 370 Weight 61 kg Intake: IV 910 740 340 .9NS 20 260 240 40 Sodium Chloride 0.45% 1, 650 500 100 000 ml @ 50 mls/hr IV . Q20H [facility] Rx#:[id number] levETIRAcetam IV 1,500 mg 200 In Saline 1 100ml.bag @ 400 mls/hr IVPB Q12HR [facility] Rx#:[id number] Intake, IV Titration 850 Amount Anidulafungin 100 mg In 100 Sodium Chloride 0.9% 100 ml @ 84 mls/hr IVPB DAILY @1700 [facility] Rx#:[id number] Vancomycin 1,000 mg In 750 Sodium Chloride 0.9% 250 ml @ 125 mls/hr IVPB Q8H [facility] Rx#:[id number] Tube Feeding 455 420 30 TPN/PPN 100 levETIRAcetam IV 1,500 mg 100 In Saline 1 100ml.bag @ 400 mls/hr IVPB Q12HR [facility] Rx#:[id number] Other 90 Output: Urine 4205 795 0 Other: Voiding Method Indwelling Catheter Indwelling Catheter Indwelling Catheter ABP, PAP, CO, CI - Last Documented Arterial Blood Pressure 123/58 - Exam No acute distress, currently off propofol, with a midline tracheostomy. The p atient has a #8 bivona tracheostomy tube. The patient is comfortable mechanical ventilator. No agitation. Opens up his eyes on continuously. following commands . Motor function is extremely weak in all 4 extremities. HEENT examination is grossly unremarkable. Tracheostomy tube is in place. Neck supple. Full range of motion. No adenopathy thyromegaly or neck vein distention. Midline tracheostomy is noted. Cardiovascular examination Cardiac exam revealed the PMI to be normally situ ated and sized. The rhythm was regular and no extrasystoles were noted during several minutes of auscultation. The first and second heart sounds were normal and physiologic splitting of the second heart sound was noted. There were no murmurs, rubs, clicks, or gallops. Lungs reveal bilateral expiratory rhonchi and wheezes. No crackles. Breath sounds are equal bilaterally. Abdomen soft, without bowel sounds. No masses. PEG tube is noted.Abdominal exam revealed normal bowel sounds. The abdomen was soft, non-tender, and without masses, organomegaly, or appreciable enlargement of the abdominal aorta. Extremities are intact. No cyanosis or clubbing. Trace edema is noted. Skin is without rash or lesion. The patient has a DTI pressure wound in her coccyx. Neurologic examination reveals a that the patient is much more awake compared to yesterday. There is improved motor function the right upper extremity. The patient is able to wiggle her toes. Significant motor weakness is still present for now. Nevertheless, much more awake and she's communicating. She is answering questions appropriately. She follows commands. - Labs CBC & Chem 7: 10/04/21 09:03 10/04/21 09:03 Labs: Abnormal Lab Results - Last 24 Hours (Table) 10/03/21 10/03/21 10/03/21 Range/Units 11:46 17:41 18:00 RBC (3.80-5.40) m/uL Hgb (11.4-16.0) gm/dL Hct (34.0-46.0) % MCV (80.0-100.0) fL Sodium (137-145) mmol/L BUN (7-17) mg/dL Creatinine (0.52-1.04) mg/dL Glucose (74-99) mg/dL POC Glucose (mg/dL) 126 H 132 H (75-99) mg/dL Calcium (8.4-10.2) mg/dL Urine Appearance Cloudy H (Clear) Urine Protein 1+ H (Negative) Amorphous Sediment Few H (None) /hpf Urine Bacteria Occasional H (None) /hpf Urine Mucus Rare H (None) /hpf Vancomycin Trough ug/mL 10/03/21 10/04/21 10/04/21 Range/Units 23:17 05:26 09:03 RBC (3.80-5.40) m/uL Hgb (11.4-16.0) gm/dL Hct (34.0-46.0) % MCV (80.0-100.0) fL Sodium 133 L (137-145) mmol/L BUN 19 H (7-17) mg/dL Creatinine 0.40 L (0.52-1.04) mg/dL Glucose 111 H (74-99) mg/dL POC Glucose (mg/dL) 117 H 114 H (75-99) mg/dL Calcium 8.3 L (8.4-10.2) mg/dL Urine Appearance (Clear) Urine Protein (Negative) Amorphous Sediment (None) /hpf Urine Bacteria (None) /hpf Urine Mucus (None) /hpf Vancomycin Trough ug/mL 10/04/21 10/04/21 Range/Units 09:03 09:03 RBC 2.45 L (3.80-5.40) m/uL Hgb 7.8 L (11.4-16.0) gm/dL Hct 24.7 L (34.0-46.0) % MCV 100.8 H (80.0-100.0) fL Sodium (137-145) mmol/L BUN (7-17) mg/dL Creatinine (0.52-1.04) mg/dL Glucose (74-99) mg/dL POC Glucose (mg/dL) (75-99) mg/dL Calcium (8.4-10.2) mg/dL Urine Appearance (Clear) Urine Protein (Negative) Amorphous Sediment (None) /hpf Urine Bacteria (None) /hpf Urine Mucus (None) /hpf Vancomycin Trough 37.1 H* ug/mL Microbiology - Last 24 Hours (Table) 10/01/21 05:56 Blood Culture - Preliminary Blood No Growth after 72 hours 10/01/21 09:50 Gram Stain - Final Sputum Sputum Culture - Final Radha sp,not albicans/galbr Assessment and Plan Plan: Acute hypoxemic respiratory failure secondary to coronavirus associated pneumonia, status post intubation and mechanical ventilation on 09/11/2021. Status post tracheostomy and PEG tube placement on 09/23/2021. Chest x-ray findings are stable. Blood gases are stable. Tracheostomy tube is in place. The chest x-ray findings are stable. The patient has limited atelectasis/infiltration of the left lung base. Patient remains on a pressure control mode of mechanical ventilation. Chest x-ray is stable with some limited infiltration of the left lung base. The staph aureus in the sputum and the patient is currently on vancomycin. Rest or secretions are quite abundant. The active problem for now as the extensive laboratory tests that we are encountering. The patient is awake and alert. Motor function are extremely low and the patient continues to have very weak weaning parameters. She went for a total of 4 hours a pressure support mode of mechanical ventilation following that she was placed back on pressure control. She is back to her original setting. I'm going to do a gradual drop in her pressure control pressure. FiO2 is currently at 40% with a PEEP of 5. Chest x-ray remains unchanged. She has a Bivona tracheostomy tube in place. Acute mental status changes, secondary to toxic/metabolic encephalopathy. The patient remains off sedation for now, neurologically the patient is gradually improving. There is a previous history of CVA with some residual left-sided weakness is noted on today's examination. She is to use her arms especially on the right. On today's evaluation, she is much more alert and she is communicating. She is continues to have significant motor weakness which is global weakness and there is chronic left-sided weakness related to previous CVA. Methicillin sensitive staph aureus pneumonia, left lower lobe. Dehydration, on admission, resolved. History of seizure disorder. The patient remains on Keppra and Tegretol Prior history of pulmonary embolism. Paroxysmal atrial fibrillation. Current rhythm is sinus and the patient is on oral amiodarone, and the patient is also on beta blockers and the patient is having frequent PVCs. Cardiomyopathy with ejection fraction of 30-35%. Status post pacemaker implantation/AICD History of saccular PROCESSING SPEC aneurysm, 4 mm. Hypothyroidism. CAD. History of CVA in 2007. History of recurrent E. coli urinary tract infections. History of psoriasis. History of sacral/coccygeal decubitus ulcer. DTI Onset fever, currently under investigation. Blood cultures of been sent. Rule out underlying UTI. Patient remains on a combination of Eraxis of vancomycin. ID is on the case. Plan: Patient remains on, not actively weaning as the patient is profoundly weak in all 4 extremities and the patient has weak to weaning parameters. We'll check weaning parameters on a daily basis and check the rapid shallow breathing index. For now she is an assist-control pressure cycle mode of mechanical ventilation. drop the pressure control to 16 cm of water and keep the prior to 40% with a PEEP of 5 Monitor the fever pattern and keep the same antibiotic coverage. Check a pro- calcitonin level. Chest x-ray findings are stable Keep the patient also sedation for now. Monitor motor functions Daily weaning parameters daily metoprolol 25 mg by mouth twice a day which also may help with her underlying PVCs and blood pressure control. Continue amiodarone 200 mg by mouth daily. Eliquis 5 mg by mouth twice a day She may benefit from select specialty transfer. Continue Keppra and tegretol Continue vancomycin for now per IDs recommendations. Complete the course of Eraxis inserted PICC line , The exit site is dry clean and intact Continue wound care Continue Lovenox for DVT prophylaxis PT and passive range of motion Prognosis poor. Weaning parameters are poor. Initiated day pressure support wean today as mentioned above. We are still working with [facility] for potential transfer at a later stage. Clinically stable. Motor function is improved. Mentation is much improved as the patient is much more awake on today's evaluation. Critically care evaluation, more than 30 minutes. Time with Patient: Greater than 30
[2021-10-04] MEDS ORDERED: POTASSIUM BICARBONATE/CIT AC 20 MEQ TABLET.EFF PO ONE (11:56)
[2021-10-04 12:12] LABS: Glucose,Whole Blood 113 mg/dL (75-99)
[2021-10-04] MEDS ORDERED: SODIUM CHLORIDE 0.9% 1,000 ML IV ONE (12:34)
--- NOTE | 2021-10-04 14:27 | P.PN ---
Subjective Progress Note Date: 10/04/21 The patient is seen at bedside and is accompanied by her father. Per nurse she continues to be on ventilator and seems mildly improved today compared to prior. She continues to be off sedation and no further seizure per nurse. Per the father she has residual weakness over the left side (predominately upper) from old stroke and uses a cane and the patient nods yes to that. Objective - Vital Signs Vital signs: Vital Signs Temp 99.1 F 10/04/21 12:00 Pulse 96 10/04/21 14:00 Resp 24 10/04/21 14:00 BP 100/57 10/04/21 14:00 Pulse Ox 95 10/04/21 14:00 Intake & Output 10/03/21 10/04/21 10/04/21 18:59 06:59 18:59 Intake Total 2315 1250 1715 Output Total 4205 795 385 Balance -0747 414 5798 Weight 61 kg Intake: IV 583 169 3217 .9NS 20 260 240 280 Sodium Chloride 0.45% 1, 650 500 250 000 ml @ 50 mls/hr IV . Q20H ADDIE Rx#:[id number] levETIRAcetam IV 1,500 mg 975 In Saline 1 100ml.bag @ 400 mls/hr IVPB Q12HR ADDIE Rx#:[id number] Intake, IV Titration 850 Amount Anidulafungin 100 mg In 100 Sodium Chloride 0.9% 100 ml @ 84 mls/hr IVPB DAILY @1700 ADDIE Rx#:[id number] Vancomycin 1,000 mg In 750 Sodium Chloride 0.9% 250 ml @ 125 mls/hr IVPB Q8H ADDIE Rx#:[id number] Tube Feeding 455 420 210 TPN/PPN 100 levETIRAcetam IV 1,500 mg 100 In Saline 1 100ml.bag @ 400 mls/hr IVPB Q12HR ADDIE Rx#:[id number] Other 90 Output: Urine 4205 795 385 Other: Voiding Method Indwelling Catheter Indwelling Catheter Indwelling Catheter ABP, PAP, CO, CI - Last Documented Arterial Blood Pressure 123/58 - Exam GENERAL: The patient is lying in bed and is not in acute distress. LUNG: Trach on ventilator. NEUROLOGICAL: Higher mental function: Patient is awake and nodding appropriately to name. She is following commands (showing a thumbs up on right hand, squeezing my hand on right, wiggling both toes). Cranial nerves: Her primary gaze is midline. She is tracking throughout the room. No facial weakness. Motor: The strength is moving her hand antigravity, and pick the forearm antigravity,attempting to move left upper extremity (strength is 1). While lowers is able to wiggle toes antigravity bilaterally. Decrease tone throughout. SOME OF THE WORK-UP: * Cash virus PCR is positive * Positive urinary tract infection with urine culture of E. coli. * Ammonia level 24 * Calcium is 8.9, Na is 137 (on 09/30/21) * CT of the head on 09/16/2021 was reported as old right hemispheric infarct without change. Old left posterior frontal lobe cortical infarct with that change. No acute abnormality. I personally reviewed the CT of the head and I do agree there is no acute or subacute ischemia there is no intracranial hemorrhage. The patient had old the strokes in the past predominantly over the right right MCA and right occipital and old left frontal. * Repeat CT head on 09/25/21: shows no acute ischemic process. Evidence of chronic bilateral encephalomalacia, stable as compared to last CT scans. * Patient's blood test shows Tegretol level <3.0, Keppra 79.2 and Neurontin level <1.0. * Urine drug seeing is not detected. Serum alcohol was less than 10. * EEG was performed on 09/11/2021 and it is reported as background slowing of at least moderate degree. This is suggestive of generalized cerebral dysfunction as can be seen with toxic metabolic encephalopathy or due to diffuse structural brain abnormality or postictal effect. No epileptiform activity was seen. - Labs CBC & Chem 7: 10/04/21 09:03 10/04/21 09:03 Labs: Abnormal Lab Results - Last 24 Hours (Table) 10/03/21 10/03/21 10/03/21 Range/Units 17:41 18:00 23:17 RBC (3.80-5.40) m/uL Hgb (11.4-16.0) gm/dL Hct (34.0-46.0) % MCV (80.0-100.0) fL Sodium (137-145) mmol/L BUN (7-17) mg/dL Creatinine (0.52-1.04) mg/dL Glucose (74-99) mg/dL POC Glucose (mg/dL) 132 H 117 H (75-99) mg/dL Calcium (8.4-10.2) mg/dL Urine Appearance Cloudy H (Clear) Urine Protein 1+ H (Negative) Amorphous Sediment Few H (None) /hpf Urine Bacteria Occasional H (None) /hpf Urine Mucus Rare H (None) /hpf Vancomycin Trough ug/mL 10/04/21 10/04/21 10/04/21 Range/Units 05:26 09:03 09:03 RBC (3.80-5.40) m/uL Hgb (11.4-16.0) gm/dL Hct (34.0-46.0) % MCV (80.0-100.0) fL Sodium 133 L (137-145) mmol/L BUN 19 H (7-17) mg/dL Creatinine 0.40 L (0.52-1.04) mg/dL Glucose 111 H (74-99) mg/dL POC Glucose (mg/dL) 114 H (75-99) mg/dL Calcium 8.3 L (8.4-10.2) mg/dL Urine Appearance (Clear) Urine Protein (Negative) Amorphous Sediment (None) /hpf Urine Bacteria (None) /hpf Urine Mucus (None) /hpf Vancomycin Trough 37.1 H* ug/mL 10/04/21 10/04/21 Range/Units 09:03 12:10 RBC 2.45 L (3.80-5.40) m/uL Hgb 7.8 L (11.4-16.0) gm/dL Hct 24.7 L (34.0-46.0) % MCV 100.8 H (80.0-100.0) fL Sodium (137-145) mmol/L BUN (7-17) mg/dL Creatinine (0.52-1.04) mg/dL Glucose (74-99) mg/dL POC Glucose (mg/dL) 113 H (75-99) mg/dL Calcium (8.4-10.2) mg/dL Urine Appearance (Clear) Urine Protein (Negative) Amorphous Sediment (None) /hpf Urine Bacteria (None) /hpf Urine Mucus (None) /hpf Vancomycin Trough ug/mL Microbiology - Last 24 Hours (Table) 10/01/21 05:56 Blood Culture - Preliminary Blood No Growth after 72 hours 10/01/21 09:50 Gram Stain - Final Sputum Sputum Culture - Final Radha sp,not albicans/galbr Assessment and Plan Assessment: * Altered mental status, likely due to toxic metabolic encephalopathy. 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 She was initially intubated then trach and on ventilator entire time and prolonged ICU stay 3 weeks, COVID 19 infection, recent UTI . Cannot rule out polyneuropathy---improving (now is moving the right upper extremity and moving bilateral ankles but continues to be weak) * Breakthrough seizure, likely due to multiple metabolic derangements. Patient had seizure disorder for long time, seizures in remission since 2009--no further seizures. * Acute Covid-19 infection with pneumonia. * Recent acute UTI with E. coli. * Severe hypernatremia, resolved * Status post tracheostomy and PEG placement 09/24/2021. * History of Atrial Fibrillation with RVR * Elevated cardiac enzymes--trending down * Acute kidney injury, likely due to dehydration/prerenal, now resolved. 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 * History of pacemaker. Plan: * Recommend EMG with NCS as outpatient of upper and lower extremity if continues to be weak. Recommend to continue with PT and OT and consider rehab therapy. * Repeat CT head on 09/25/21: shows no acute ischemic process. Evidence of ch ronic bilateral encephalomalacia, stable as compared to last CT scans. * Patient's blood test shows Tegretol level <3.0, Keppra 79.2 and Neurontin level <1.0. Elevated Keppra level was because of acute renal failure on presentation, which now has resolved. * Continue Tegretol 200 mg 3 times a day and Keppra 1500 mg twice a day * EEG was performed, which revealed background slowing of at least moderate degree. This is suggestive of generalized cerebral dysfunction as can be seen with toxic metabolic encephalopathy or due to diffuse structural brain abnormality or postictal effect. No epileptiform activity was seen. * Resume anticoagulation with Eliquis as early as possible from neurology point to prevent recurrent strokes from atrial fibrillation, unless any obvious contraindications. Cardiology also on board. Defer anticoagulation to IM, critical care and cardiology * Patient completed course of Levaquin total of 7 days. * I.D. team is on board. * Other medical management as per IM, critical care. * Upon discharge, the patient needs to follow-up with a neurologist within 1-2 weeks as outpatient. [facility]ending [facility]. From neurological perspective patient is making improvement and mentation improving compared to initial presentation. The plan is discussed with the nurse and her father who is at bedside. There is no further neurological work-up. Neurology will sign off. Please notify neurology team if any further concerns. Phuc Serrano M.D. Neuro-Hospitalist Time with Patient: Less than 30
[2021-10-04] MEDS: ANIDULAFUNGIN 100 MG in SODIUM CHLORIDE 0.9% 100 ML IVPB SCH (16:07)
[2021-10-04 17:31] LABS: Glucose,Whole Blood 125 mg/dL (75-99)
--- NOTE | 2021-10-04 21:51 | P.PN ---
Subjective Progress Note Date: 10/03/21 Principal diagnosis: Pneumonia pressure ulcer and multiple antibiotic allergies Patient is a 51-year-old female presenting to the hospital on September 10 for mental status changes patient did have a evidence of COVID-19 infection, with respiratory failure requiring intubation also with E. coli UTI and the patient did have multiple antibiotic allergies. The patient is status post tracheostomy and PEG tube placement on 09/23/2021 On today's evaluation that is to to 10/03/2021, patient did spike a fever of 101F this afternoon the patient is hemodynamically stable not requiring pressor support, the patient FiO2 is stable, no purulent secretions through the the ET or diarrhea has been reported by the nursing staff Objective - Vital Signs Vital signs: Vital Signs Temp 100.5 F H 10/03/21 17:30 Pulse 123 H 10/03/21 17:30 Resp 28 H 10/03/21 17:30 BP 109/72 10/03/21 17:30 Pulse Ox 94 L 10/03/21 17:30 Intake & Output 10/02/21 10/03/21 10/03/21 18:59 06:59 18:59 Intake Total 7934.063 9479 1400 Output Total 1090 1085 4000 Balance 707.834 590 -2600 Weight 58.3 kg 59.1 kg Intake: IV 940 940 700 .9NS 20 240 240 200 Sodium Chloride 0.45% 1, 600 600 500 000 ml @ 50 mls/hr IV . Q20H [facility] Rx#:[id number] levETIRAcetam IV 1,500 mg 100 100 In Saline 1 100ml.bag @ 400 mls/hr IVPB Q12HR [facility] Rx#:[id number] Intake, IV Titration 307.834 250 250 Amount Clevidipine Butyrate 25 57.834 mg In Empty Bag 1 bag @ 1 MG/HR 2 mls/hr IV .Q24H [facility] Rx#:[id number] Vancomycin 1,000 mg In 250 250 250 Sodium Chloride 0.9% 250 ml @ 125 mls/hr IVPB Q8H [facility] Rx#:[id number] Tube Feeding 550 425 350 TPN/PPN 100 levETIRAcetam IV 1,500 mg 100 In Saline 1 100ml.bag @ 400 mls/hr IVPB Q12HR [facility] Rx#:[id number] Other 60 Output: Urine 1090 1085 4000 Other: Voiding Method Indwelling Catheter Indwelling Catheter Indwelling Catheter ABP, PAP, CO, CI - Last Documented Arterial Blood Pressure 123/58 - Exam GENERAL DESCRIPTION: Middle-aged male intubated on the vent, no distress. No tachypnea or accessory muscle of respiration use. LUNGS: Unlabored breathing. Decreased breath sound at the base. No wheeze or crackle. HEART: S1, S2, regular rate and rhythm. No loud murmur ABDOMEN: Soft, no tenderness , guarding or rigidity, no organomegaly EXTREMITIES: No edema of feet. Patient with unstageable sacral pressure ulcer with surrounding swelling redness has decreased, upper back unstageable pressure ulcer with black esher but with no surrounding tenderness and drainage - Labs CBC & Chem 7: 10/04/21 09:03 10/04/21 09:03 Labs: Abnormal Lab Results - Last 24 Hours (Table) 10/02/21 10/03/21 10/03/21 Range/Units 18:06 05:44 06:08 RBC (3.80-5.40) m/uL Hgb (11.4-16.0) gm/dL Hct (34.0-46.0) % MCV (80.0-100.0) fL Lymphocytes # (1.0-4.8) k/uL ABG pH 7.53 H (7.35-7.45) ABG pCO2 33 L (35-45) mmHg ABG HCO3 28 H (21-25) mmol/L ABG Total CO2 29 H (19-24) mmol/L ABG O2 Saturation 98.8 H (94-97) % Sodium (137-145) mmol/L Creatinine (0.52-1.04) mg/dL Glucose (74-99) mg/dL POC Glucose (mg/dL) 111 H 113 H (75-99) mg/dL 10/03/21 10/03/21 10/03/21 Range/Units 07:09 07:09 11:46 RBC 2.56 L (3.80-5.40) m/uL Hgb 8.3 L (11.4-16.0) gm/dL Hct 26.3 L (34.0-46.0) % MCV 102.8 H (80.0-100.0) fL Lymphocytes # 0.9 L (1.0-4.8) k/uL ABG pH (7.35-7.45) ABG pCO2 (35-45) mmHg ABG HCO3 (21-25) mmol/L ABG Total CO2 (19-24) mmol/L ABG O2 Saturation (94-97) % Sodium 135 L (137-145) mmol/L Creatinine 0.38 L (0.52-1.04) mg/dL Glucose 102 H (74-99) mg/dL POC Glucose (mg/dL) 126 H (75-99) mg/dL 10/03/21 Range/Units 17:41 RBC (3.80-5.40) m/uL Hgb (11.4-16.0) gm/dL Hct (34.0-46.0) % MCV (80.0-100.0) fL Lymphocytes # (1.0-4.8) k/uL ABG pH (7.35-7.45) ABG pCO2 (35-45) mmHg ABG HCO3 (21-25) mmol/L ABG Total CO2 (19-24) mmol/L ABG O2 Saturation (94-97) % Sodium (137-145) mmol/L Creatinine (0.52-1.04) mg/dL Glucose (74-99) mg/dL POC Glucose (mg/dL) 132 H (75-99) mg/dL Microbiology - Last 24 Hours (Table) 10/01/21 09:50 Gram Stain - Final Sputum Sputum Culture - Final Radha sp,not albicans/galbr 10/01/21 05:56 Blood Culture - Preliminary Blood No Growth after 48 hours Assessment and Plan (1) Pneumonia Current Visit: Yes Status: Acute Code(s): J18.9 - PNEUMONIA, UNSPECIFIED ORGANISM SNOMED Code(s): 908531601 (2) Allergy to multiple antibiotics Current Visit: Yes Status: Acute Code(s): Z88.1 - ALLERGY STATUS TO OTHER ANTIBIOTIC AGENTS SNOMED Code(s): 871249812 (3) COVID-19 Current Visit: Yes Status: Acute Code(s): U07.1 - COVID-19 SNOMED Code(s): 469492728 Plan: 1-Patient with acute respiratory failure which is multifactorial in this patient who did have a covid19 pneumonia and a concern for possible secondary bacterial pneumonia , now with a new fever today so for possible PICC line infection blood cultures will be obtained from the PICC line to continue with vancomycin and Eraxis 2-patient with unstageable sacral pressure ulcer as well as unstageable pressure ulcer to the upper back area, local wound care with the medahoney followed by moist dressing and keep the area off the pressure 3-left elbow pressure ulcer stage II with no cellulitis local wound care with a dry with visible dressing daily of the pressure
--- NOTE | 2021-10-04 21:53 | P.PN ---
Subjective Progress Note Date: 10/04/21 Principal diagnosis: Pneumonia pressure ulcer and multiple antibiotic allergies Patient is a 51-year-old female presenting to the hospital on September 10 for mental status changes patient did have a evidence of COVID-19 infection, with respiratory failure requiring intubation also with E. coli UTI and the patient did have multiple antibiotic allergies. The patient is status post tracheostomy and PEG tube placement on 09/23/2021 On today's evaluation that is to to 10/04/2021, patient is afebrile today, the patient is hemodynamically stable not requiring pressor support, the patient FiO2 remains to be stable, no purulent secretions through the the ET or diarrhea has been reported by the nursing staff , no new changes Objective - Vital Signs Vital signs: Vital Signs Temp 99.1 F 10/04/21 16:00 Pulse 98 10/04/21 21:00 Resp 24 10/04/21 21:00 BP 133/76 10/04/21 21:00 Pulse Ox 97 10/04/21 21:00 Intake & Output 10/04/21 10/04/21 10/05/21 06:59 18:59 06:59 Intake Total 1250 1830 180 Output Total 795 1170 150 Balance 455 660 30 Weight 61 kg Intake: IV 740 1000 120 .9NS 20 240 520 120 Anidulafungin 100 mg In 130 Sodium Chloride 0.9% 100 ml @ 84 mls/hr IVPB DAILY @1700 ADDIE Rx#:[id number] Sodium Chloride 0.45% 1, 500 250 000 ml @ 50 mls/hr IV . Q20H ADDIE Rx#:[id number] levETIRAcetam IV 1,500 mg 100 In Saline 1 100ml.bag @ 400 mls/hr IVPB Q12HR ADDIE Rx#:[id number] Intake, IV Titration 500 Amount Vancomycin 1,000 mg In 500 Sodium Chloride 0.9% 250 ml @ 125 mls/hr IVPB Q8H ADDIE Rx#:[id number] Tube Feeding 420 330 60 Other 90 Output: Urine 795 1170 150 Other: Voiding Method Indwelling Catheter Indwelling Catheter Indwelling Catheter ABP, PAP, CO, CI - Last Documented Arterial Blood Pressure 123/58 - Exam GENERAL DESCRIPTION: Middle-aged male intubated on the vent, no distress. No tachypnea or accessory muscle of respiration use. LUNGS: Unlabored breathing. Decreased breath sound at the base. No wheeze or crackle. HEART: S1, S2, regular rate and rhythm. No loud murmur ABDOMEN: Soft, no tenderness , guarding or rigidity, no organomegaly EXTREMITIES: No edema of feet. - Labs CBC & Chem 7: 10/04/21 09:03 10/04/21 09:03 Labs: Abnormal Lab Results - Last 24 Hours (Table) 10/03/21 10/04/21 10/04/21 Range/Units 23:17 05:26 09:03 RBC (3.80-5.40) m/uL Hgb (11.4-16.0) gm/dL Hct (34.0-46.0) % MCV (80.0-100.0) fL Sodium 133 L (137-145) mmol/L BUN 19 H (7-17) mg/dL Creatinine 0.40 L (0.52-1.04) mg/dL Glucose 111 H (74-99) mg/dL POC Glucose (mg/dL) 117 H 114 H (75-99) mg/dL Calcium 8.3 L (8.4-10.2) mg/dL Vancomycin Trough ug/mL 10/04/21 10/04/21 10/04/21 Range/Units 09:03 09:03 12:10 RBC 2.45 L (3.80-5.40) m/uL Hgb 7.8 L (11.4-16.0) gm/dL Hct 24.7 L (34.0-46.0) % MCV 100.8 H (80.0-100.0) fL Sodium (137-145) mmol/L BUN (7-17) mg/dL Creatinine (0.52-1.04) mg/dL Glucose (74-99) mg/dL POC Glucose (mg/dL) 113 H (75-99) mg/dL Calcium (8.4-10.2) mg/dL Vancomycin Trough 37.1 H* ug/mL 10/04/21 Range/Units 17:31 RBC (3.80-5.40) m/uL Hgb (11.4-16.0) gm/dL Hct (34.0-46.0) % MCV (80.0-100.0) fL Sodium (137-145) mmol/L BUN (7-17) mg/dL Creatinine (0.52-1.04) mg/dL Glucose (74-99) mg/dL POC Glucose (mg/dL) 125 H (75-99) mg/dL Calcium (8.4-10.2) mg/dL Vancomycin Trough ug/mL Microbiology - Last 24 Hours (Table) 10/03/21 18:31 Blood Culture - Preliminary Blood No Growth after 24 hours 10/01/21 05:56 Blood Culture - Preliminary Blood No Growth after 72 hours Assessment and Plan (1) Pneumonia Current Visit: Yes Status: Acute Code(s): J18.9 - PNEUMONIA, UNSPECIFIED ORGANISM SNOMED Code(s): 551636411 (2) Allergy to multiple antibiotics Current Visit: Yes Status: Acute Code(s): Z88.1 - ALLERGY STATUS TO OTHER ANTIBIOTIC AGENTS SNOMED Code(s): 163761164 (3) COVID-19 Current Visit: Yes Status: Acute Code(s): U07.1 - COVID-19 SNOMED Code(s): 786188371 Plan: 1-Patient with acute respiratory failure which is multifactorial in this patient who did have a covid19 pneumonia and a concern for possible secondary bacterial pneumonia , now with a new fever on 10/03/2021 so for possible PICC line inf ection blood cultures were obtained from the PICC line which are currently pending patient UA is negative, patient to continue with vancomycin and Eraxis 2-patient with unstageable sacral pressure ulcer as well as unstageable pressure ulcer to the upper back area, local wound care with the matthewoney followed by moist dressing and keep the area off the pressure 3-left elbow pressure ulcer stage II with no cellulitis local wound care with a dry with visible dressing daily off the pressure Time with Patient: Less than 30
--- NOTE | 2021-10-04 23:03 | P.PN ---
Subjective Progress Note Date: 10/02/21 This is a pleasant 51 years old female with past medical history of Coronary Artery Disease, Heart Failure, CVA/TIA, Pulmonary Embolus (PE), Seizure Disorder, Last seizure 2009, CVA 2007 with L sided weakness arm and leg and has L foot drop, TIA 2018, cardiomyopathy, R PE and pneumothorax/pneumonia following leg fracture in 1994, gestational diabetes with all pregnancies , bilateral glaucoma with surgery, psoriasis in the past, UTIs. She is a status post Pacemaker, history of Bilateral eye surgery for glaucoma, Anxiety, Depression, Current every day smoker Patient presents because of altered mental status. Information was limited from the patient. It was obtained from the chart and medical staff. Also as per family patient was able to go to the bathroom, was more lethargic and tired over the last day. While in the emergency room focal mild seizure is noticed On admission patient had and fever of 101. She is tachypneic at 26-40, tachycardic 110-140, also she is hypoxic saturating 72% on room air Labs showing WBC of 10.5, hemoglobin of 16.3, platelet count of 197. INR 1.7. Sodium 164, creatinine 1.7, lactic acid elevated 4.6. Liver enzymes elevated with AST 202 and ALT 81. Bilirubin is normal at 1.3. Urine analysis is highly suspicious of infection Urine drug screen is negative Cash versus positive Chest x-ray showing left perihilar and left lower lobe area of infiltrate and small effusion correlates for pneumonia CT of the brain without contrast showing no intracranial hemorrhage, evidence of remote ischemic change. However there is vague low attenuation near the left thalamus and left cerebral peduncle. Acute ischemia in the differential diagnosis. Recommend stat MRI of brain with MRSA [place] as clinically warranted. In the emergency room patient was started on aztreonam and IV vancomycin, Keppra and heparin drip 09/11/2021 Patient today was still in the ICU, she was very weak and obtunded, she will wake up to certain stabilized and moans, she does not follow commands she cannot, gait she moved both extremities symmetrically. R on she had collapse of her left lung cancer and she has to be intubated and repeat chest x-ray showing better. A of the left lung. She is tachypneic with a breathing rate 22, no more fever since yesterday. Her sodium improved down to 144 and she was started on normal saline, creatinine 1.1, Ejection fraction showed 30-35% which is slice worsened from 06/2021 where it was 35-40% She remains on dexamethasone, IV vancomycin and clindamycin, heparin drip, Keppra and normal saline at 75 mL/h 09/12/2021 Patient with respiratory failures and she was intubated and placed on mechanical ventilation with pulmonary/critical care team following her mostly. There is no more seizure-like activity noticed. She still tachypneic with a breathing rate of 32 blood pressure 100/70, she is needing FiO2 of 80% and PEEP of 20. She has no more fevers since admission. Urine culture is growing gram-negative bacilli. Sodium is 146, WBCs is increased at 16.5 K. PH showing acidosis with 7.1 and elevated pCO2 at 83. Chest x-ray showing left sided opacities with near full. A of the left lung. Patient kept on antibiotics in the form of clindamycin and Levaquin and fluconazole. Also she remains on dexamethasone, and so a heparin to Lovenox. Also continued on seizure medication 1500 mg twice a day and IV fluids per pulmonary team. Neurology team on the case 09/13/2021 Patient remains intubated and sedated with pulmonary/critical care team following her closely. Her PEEP is lower today to 18. She remains on FiO2 of 50%. She is tachypneic at 32 about blood pressure is controlled. Her inflammatory markers are increased to LDH of 1009 and CRP of 25.1. Bicarb is elevated at 31 WBC is 17.7, sodium improved to 142. Creatinine improved to 0.6. Chest x-ray showed improving left lung infiltrate. PH is improved slightly 7.2 with pCO2 is slightly better at 79. Urine culture is growing E. coli which is sensitive to the antibiotics. Currently patient is covered with clindamycin, Levaquin and fluconazole. Also she is on dexamethasone 6 mg, Keppra 1500 mg and half-normal saline at 50 mL per hour Anticoagulation switch from heparin drip and to Lovenox 09/14/2021 Patient still intubated and sedated on mechanical ventilation with pulmonary/critical care team following her closely and just her vent setting. Today her FiO2 of 55%, and she is tachypneic at 33 breath per minute. Labs showing stable findings with sodium 141, creatinine 0.8, liver enzymes slightly elevated, LDH slightly down at 797 and CRP 2-3.2. Same leukocytosis at 14.7. Her pH is 7.2 and carbon dioxide is 82. D-dimer mildly elevated at 0.9, just x-ray showing bilateral infiltrate with no significant change from prior. She remains on the same antibiotic of clindamycin, Levaquin, dexamethasone, Keppra 1500 mg and half normal saline at 50 mL/h 09/15/2021 Patient in the ICU intubated and sedated, with pulmonary/critical care team following closely. FiO2 still 50%, hemodynamically showing both staple blood pressure 101/40, patient is tachypneic more than 30 per minutes. PEEP is lower. wbc of 11.3, hemoglobin 9.4, sodium 140, creatinine 0.8. chest x-ray: mild worsening infiltrate in the left lobe. patient continued with the same treatment of clindamycin, levaquin, dexamethasone, keppra and she received 1 l of normal saline today. 09/16/2021 Patient is seen and evaluated and follow-up continues to be closely monitored in the ICU. Multiple medical consultations following including infectious disease, pulmonary [facility] [place], and neurology. Patient continues on mechanical vent with an FiO2 of 50% and PEEP is 10. Weaning is being continued and PEEP is being titrated down to 8. Patient continues with sedation holidays and very minimal propofol and patient is now off Nimbex and very minimal stimulus noted. Patient response to painful stimulus minimally. Plan is for possible CT of the brain repeat this afternoon. Patient also being closely monitored for continued seizures of which she does have a past medical history of. Patient is also Covid positive and infectious disease is following and patient is maintained on clindamycin along with Levaquin. Chest x-ray today shows correlate for left lower lobe pneumonia versus atelectasis with possible associated effusion. 09/17/2021 Patient is seen in follow-up this morning closely monitored in the ICU. Neurology also following and patient is maintained on IV Keppra. Patient also continues on IV antibiotics in the form of aztreonam and clindamycin with infectious disease following. Patient urine culture showing E. coli. Chest x- ray today shows chronic emphysematous changes with left basilar acute infiltrate and/or atelectasis and likely small left pleural effusion all redemonstrated with no significant change from previous day. Neurology following And okay to resume anticoagulant as there is no evidence of new intracranial process or hemorrhage. Patient is off sedation and continues to be unresponsive. 09/18/2021 Patient is evaluated again this morning and continues to be in the ICU on mechanical vent and being closely monitored. FiO2 is at 45% and PEEP is 8. Patient continues to be off sedation with no response for over 24 hours. Neurology following as well and have discussed overall prognosis with family and family discussing with other family members about CODE STATUS and treatment plan moving forward. Infectious disease also following and patient is maintained on IV Levaquin along with clindamycin and aztreonam and will continue. Urine cultures finalized showing E. coli and sputum culture preliminary is pending at this time. 09/19/2020 Patient evaluated today in the ICU on mechanical ventilation. Fi02 at 45% with a PEEP of 8. Propofol infusing, Nimbex and Levophed are currently on hold. Pre cedex discontinued. There has been no response, and mental status is not improving. Still no response to verbal stimuli. Patient is being followed closely by neurology for this and is on IV keppra and tegretol. EEG consistant with toxic metabolic encepholapthy. Repeat chest xray today shows similar opacities given patient rotation. Stable support tubes. Mild pulmonary vascular congestion correlate with serum BNP. Blood cultures negative, pending finalized, sputum negative so far. Labs reviewed today: WBC 9.2, hgb 10.3, sodium 138, potassium 3.8, BUN 33, Cr 0.76, glucose in the 110's, calcium 7.9, AST 250, ALT 78, Albumin 2.3. Vitals reviewed: Temp 97.4, HR 126, RR 44, Blood pressure 113/80, 96% oxygen saturation on mechanical ventilation. 09/20/2021 Patient evaluated in ICU on mechanical ventilation with an Fi02 of 45%, PEEP of 12. Chest xray today shows left lower lobe atelectasis versus pneumonia with similar findings as previous. BNP yesterday 12,500, however xray reviewed and do es not appear to be showing heart failure. She is in negative fluid balance. Status was addressed with family by neurology who is awaiting a phone call back. White count 12.8, RBC 3.5, sodium 137 potassium 3.8, chloride 101, CO2 33, BUN 35, creatinine 0.68, blood sugars in the 120s, AST 424, ALT 115, alk phos 63. Running temps today 100.8, heart rate 123, respiratory rate 36, blood pressure 95/65, oxygen saturation of 93-94%. Blood pressures are on the softer side 88/55. Current infusions include propofol which has been resumed as patient has not shown any signs of neurological improvement while on a propofol break. 09/21/2021 Patient is seen in follow up today and continues to be on mechanical vent with an FI02 of 45% with a peep of 8 and multiple medical consultations following. Chest xray similar from previous with copd and continued focal basilar left lower lobe retrocardiac consolidation or atelectasis. Patient is on propofol and general surgery has been consulted for peg and trach placement. Plan for surgery is tomorrow. 09/22/2021 Patient is seen and evaluated in follow-up this morning continues on mechanical ventilation with a PEEP of 8 and FiO2 is 45%. General surgery following an plan is for PEG and trach placement today due to prolonged mechanical ventilation and no improvements or weaning from the vent. Patient continues on tube feeding along with Lovenox which is currently on hold for the surgical procedure. Patient's chest x-ray today shows diffuse bilateral infiltrates that are stable with no pneumothorax or pleural effusion noted. Patient also had gallbladder ultrasound secondary to elevated liver functions and shows hepatomegaly otherwise unremarkable. Patient is continued on antifungal's along with vancomycin and infectious disease following closely. Sputum cultures preliminary showing Radha glabrata and Staphylococcus aureus and most recent blood cultures have been negative. 09/23/2021 Patient is seen in follow-up this morning and patient was unable to receive PEG and trach with general surgery following yesterday and plan is for today. Patient continues on mechanical vent and FiO2 is 45% with a PEEP of 8. Lovenox and tube feeding currently on hold. Chest xray reviewed and no acute changes from yesterday. Continues to be unresponsive. Prognosis remains poor. 09/24/2021 Patient is seen this morning status post PEG and trach placement and is resuming tube feedings with general surgery following. Patient continues on mechanical vent with an FiO2 of 40% and PEEP is 8. Per nursing staff working on weaning sedation and assessing neuro status. Continues with being obtunded and no purposeful movements noted. Chest xray shows COPD with improvement in previous left pleural effusion with mild patchy infiltrates/retrocardiac atelectasis noted. 09/25/2021 Patient is seen and evaluated today continues to be in the ICU on mechanical ventilation and continues on sedation with attempts at weaning. FI02 is 40% and peep of 8. Multiple medical consultations following. Plan is for repeat ct of the brain sometime this afternoon. Per nursing staff patient is tolerating tube feeds. Chest xray today shows suboptimal study due to positioning and unable to exclude some worsening atelectasis or infiltrate. 09/26/2021 Patient is in the MICU. Status post tracheostomy and PEG tube placement on 09/23/2021 remains on mechanical ventilator. FiO2 40% and PEEP of 8. Patient remains unresponsive and does not follow simple commands. Repeat CT done on 09/25/2021 showed findings consistent with cerebrovascular infarction bilaterally. May be indicative of otitis media bilaterally. No acute brain abnormality evident. Patient is being continued antibiotics in the form of Levaquin and Eraxis per bacterial pneumonia and sputum cultures growing Radha and staph aureus. Laboratory data showed WBC 8.7 hemoglobin 8.8 and platelets 330 Sodium 138 potassium 3.6 chloride 102 bicarb is 34 BUN 2019 creatinine 0.38 and calcium 8.4 Patient is being continued antibiotics and antiepileptic medications. Pulmonary, neurology and ID is on board. 09/27/2019 Patient is in the MICU. Status post tracheostomy and PEG tube placement and mechanical ventilator. Patient is off sedation. Currently on assist control with tidal volume 325 FiO2 35% and PEEP of 8. Patient remains obtunded and does not follow simple commands. Chest x-ray showed improvement in the opacity in the obscuring the left hemidiaphragm on the prior study. Most likely represents decreasing small pleural effusion Laboratory showed WBC 8.3 hemoglobin 9.5 platelets 102 sodium 138 potassium 4.0 chloride 103 bicarb is 31 BUN 2020 creatinine 0.45 calcium 8.8 patient is being current on antibiotics in the form of Levaquin and Eraxis. Decadron has been discontinued. 10/02/2021 Patient is able to open her eyes with verbal stimuli. Able to move her upper extremities. But patient is unable to move her lower extremities. Feels extremely weak. Able to follow simple commands. Patient is mechanical ventilator via trach tube. Chest x-ray showed unchanged with atelectasis of the left lung base. Patient remains antibiotics above vancomycin. Sputum cultures are growing staph aureus. Patient is on anticoagulation with Eliquis.. Patient is on amiodarone and also on antiepileptic medications. Laboratory data showed WBC 6.4 hemoglobin 8.9 and platelets 219 sodium 136 potassium 3.5 chloride 104 bicarb is 25 BUN 21 creatinine 0.34 and calcium 8.3 Neurology and pulmonary is on board. Review of systems: Unable to obtain as patient continues to be on mechanical ventilation and sedated Current medications reviewed. Objective - Vital Signs Vital signs: Vital Signs Temp 98.8 F 10/02/21 20:00 Pulse 93 10/02/21 21:00 Resp 16 10/02/21 21:00 BP 97/69 10/02/21 21:00 Pulse Ox 95 10/02/21 21:00 Intake & Output 10/02/21 10/02/21 10/03/21 06:59 18:59 06:59 Intake Total 2927.2 1797.834 420 Output Total 1190 1090 275 Balance 1737.2 707.834 145 Weight 58.3 kg 58.3 kg Intake: IV 890 940 310 .9NS 20 240 240 60 Sodium Chloride 0.45% 1, 550 600 150 000 ml @ 50 mls/hr IV . Q20H ADDIE Rx#:[id number] levETIRAcetam IV 1,500 mg 100 100 100 In Saline 1 100ml.bag @ 400 mls/hr IVPB Q12HR ADDIE Rx#:[id number] Intake, IV Titration 1317.2 307.834 Amount Clevidipine Butyrate 25 67.2 57.834 mg In Empty Bag 1 bag @ 1 MG/HR 2 mls/hr IV .Q24H [facility]IE Rx#:[id number] Vancomycin 1,000 mg In 1250 250 Sodium Chloride 0.9% 250 ml @ 125 mls/hr IVPB Q8H [facility]IE Rx#:[id number] Tube Feeding 720 550 110 Output: Urine 1190 1090 275 Other: Voiding Method Indwelling Catheter Indwelling Catheter Indwelling Catheter # Bowel Movements 1 ABP, PAP, CO, CI - Last Documented Arterial Blood Pressure 123/58 - Exam Physical exam: GENERAL: Please awake alert and oriented. Unable to communicate. Able to open her eyes with verbal stimuli. HEENT: Pupils are round and equally reacting to light. EOMI. No scleral icterus. No conjunctival pallor. Normocephalic, atraumatic. No pharyngeal erythema. No thyromegaly. CARDIOVASCULAR: S1 and S2 present. No murmurs, rubs, or gallops. PULMONARY: diminished breath sounds bilaterally with coarse rhonchi noted ABDOMEN: Soft, nontender, nondistended, normoactive bowel sounds. No palpable organomegaly. MUSCULOSKELETAL: No joint swelling or deformity. EXTREMITIES: No cyanosis, clubbing, or pedal edema. NEUROLOGICAL: Patient is able to open her eyes and follow simple commands. Able to move her upper extremities. Unable to move lower extremities. SKIN: No rashes. no petechiae. - Labs CBC & Chem 7: 10/04/21 09:03 10/04/21 09:03 Labs: Abnormal Lab Results - Last 24 Hours (Table) 10/02/21 10/02/21 10/02/21 Range/Units 00:29 05:15 05:30 RBC (3.80-5.40) m/uL Hgb (11.4-16.0) gm/dL Hct (34.0-46.0) % MCV (80.0-100.0) fL Lymphocytes # (1.0-4.8) k/uL ABG pH 7.52 H (7.35-7.45) ABG pO2 76 L (83-108) mmHg ABG HCO3 28 H (21-25) mmol/L ABG Total CO2 29 H (19-24) mmol/L Sodium (137-145) mmol/L BUN (7-17) mg/dL Creatinine (0.52-1.04) mg/dL Glucose (74-99) mg/dL POC Glucose (mg/dL) 125 H 120 H (75-99) mg/dL Calcium (8.4-10.2) mg/dL 10/02/21 10/02/21 10/02/21 Range/Units 05:36 05:36 11:26 RBC 2.83 L (3.80-5.40) m/uL Hgb 8.9 L (11.4-16.0) gm/dL Hct 28.7 L (34.0-46.0) % MCV 101.2 H (80.0-100.0) fL Lymphocytes # 0.8 L (1.0-4.8) k/uL ABG pH (7.35-7.45) ABG pO2 (83-108) mmHg ABG HCO3 (21-25) mmol/L ABG Total CO2 (19-24) mmol/L Sodium 136 L (137-145) mmol/L BUN 21 H (7-17) mg/dL Creatinine 0.34 L (0.52-1.04) mg/dL Glucose 118 H (74-99) mg/dL POC Glucose (mg/dL) 114 H (75-99) mg/dL Calcium 8.3 L (8.4-10.2) mg/dL 10/02/21 10/02/21 Range/Units 12:07 18:06 RBC (3.80-5.40) m/uL Hgb (11.4-16.0) gm/dL Hct (34.0-46.0) % MCV (80.0-100.0) fL Lymphocytes # (1.0-4.8) k/uL ABG pH (7.35-7.45) ABG pO2 (83-108) mmHg ABG HCO3 (21-25) mmol/L ABG Total CO2 (19-24) mmol/L Sodium (137-145) mmol/L BUN (7-17) mg/dL Creatinine (0.52-1.04) mg/dL Glucose (74-99) mg/dL POC Glucose (mg/dL) 129 H 111 H (75-99) mg/dL Calcium (8.4-10.2) mg/dL Microbiology - Last 24 Hours (Table) 10/01/21 09:50 Gram Stain - Preliminary Sputum Sputum Culture - Preliminary 10/01/21 05:56 Blood Culture - Preliminary Blood No Growth after 24 hours Assessment and Plan Assessment: Altered mental status possibly secondary to metabolic/toxic encephalopathy, ruled out other intracranial lesions, and possibly secondary to seizures. improving slowly Acute hypoxic respiratory failure secondary to COVID-19 pneumonia requiring mechanical ventilation status post peg tube and tracheostomy placement Left lower lobe pneumonia, rule out aspiration pneumonia Acute urinary tract infection, present on admission with culture showing E. coli, adequately treated Sepsis secondary to UTI and pneumonia Breakthrough seizure Bilateral interstitial Covid 19 pneumonia Increased inflammatory markers of covid 19 elevated troponins on admission, most likely type II ischemia secondary to acute kidney injury and possibly secondary to electrolyte abnormalities. Cardiomyopathy with most recent EF of 30-35% Paroxysmal atrial fibrillation. Currently maintaining sinus rhythm. Continue with oral amiodarone and beta-blockers. Patient is on anticoagulation with Eliquis. Hypernatremia, improved Acute kidney injury, improved Mild elevated liver enzymes History of coronary artery disease History of pulmonary embolism History of seizure disorder, last seizure was in 2009 as per documents History 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 left foot drop History of glaucoma status post surgery Status post permanent pacemaker Nicotine dependence GI prophylaxis DVT prophylaxis Full code Plan: This is a pleasant 51 years old female who presented with altered mental status, pneumonia, UTI, possible stroke although most likely old infarcts noted on CT, seizure and positive for covid pneumonia patient was intubated and continues on mechanical ventilation with a FiO2 of 35% and PEEP is 5. Patient is status post PEG and trach placement recently from prolonged mechanical ventilation. Continue with Keppra and neurology following as needed pulmonary and infectious disease following, continue with antifungals, Levaquin discontinued recently, crp is elevated and procalcitonin is .12 and having low grade temps and was started on vancomycin.Sputum culture showed staph aureus. Continue with vitamin and zinc supplements. Overall Prognosis remains extremely guarded Social work following and working on possible LTAC and peer to peer denied and awaiting appeal. Will continue to monitor closely. Time with Patient: Greater than 30
--- NOTE | 2021-10-04 23:06 | P.PN ---
Subjective Progress Note Date: 10/03/21 This is a pleasant 51 years old female with past medical history of Coronary Artery Disease, Heart Failure, CVA/TIA, Pulmonary Embolus (PE), Seizure Disorder, Last seizure 2009, CVA 2007 with L sided weakness arm and leg and has L foot drop, TIA 2018, cardiomyopathy, R PE and pneumothorax/pneumonia following leg fracture in 1994, gestational diabetes with all pregnancies , bilateral glaucoma with surgery, psoriasis in the past, UTIs. She is a status post Pacemaker, history of Bilateral eye surgery for glaucoma, Anxiety, Depression, Current every day smoker Patient presents because of altered mental status. Information was limited from the patient. It was obtained from the chart and medical staff. Also as per family patient was able to go to the bathroom, was more lethargic and tired over the last day. While in the emergency room focal mild seizure is noticed On admission patient had and fever of 101. She is tachypneic at 26-40, tachycardic 110-140, also she is hypoxic saturating 72% on room air Labs showing WBC of 10.5, hemoglobin of 16.3, platelet count of 197. INR 1.7. Sodium 164, creatinine 1.7, lactic acid elevated 4.6. Liver enzymes elevated with AST 202 and ALT 81. Bilirubin is normal at 1.3. Urine analysis is highly suspicious of infection Urine drug screen is negative Cash versus positive Chest x-ray showing left perihilar and left lower lobe area of infiltrate and small effusion correlates for pneumonia CT of the brain without contrast showing no intracranial hemorrhage, evidence of remote ischemic change. However there is vague low attenuation near the left thalamus and left cerebral peduncle. Acute ischemia in the differential diagnosis. Recommend stat MRI of brain with MRSA [place] of [place] as clinically warranted. In the emergency room patient was started on aztreonam and IV vancomycin, Keppra and heparin drip 09/11/2021 Patient today was still in the ICU, she was very weak and obtunded, she will wake up to certain stabilized and moans, she does not follow commands she cannot, gait she moved both extremities symmetrically. R on she had collapse of her left lung cancer and she has to be intubated and repeat chest x-ray showing better. A of the left lung. She is tachypneic with a breathing rate 22, no more fever since yesterday. Her sodium improved down to 144 and she was started on normal saline, creatinine 1.1, Ejection fraction showed 30-35% which is slice worsened from 06/2021 where it was 35-40% She remains on dexamethasone, IV vancomycin and clindamycin, heparin drip, Keppra and normal saline at 75 mL/h 09/12/2021 Patient with respiratory failures and she was intubated and placed on mechanical ventilation with pulmonary/critical care team following her mostly. There is no more seizure-like activity noticed. She still tachypneic with a breathing rate of 32 blood pressure 100/70, she is needing FiO2 of 80% and PEEP of 20. She has no more fevers since admission. Urine culture is growing gram-negative bacilli. Sodium is 146, WBCs is increased at 16.5 K. PH showing acidosis with 7.1 and elevated pCO2 at 83. Chest x-ray showing left sided opacities with near full. A of the left lung. Patient kept on antibiotics in the form of clindamycin and Levaquin and fluconazole. Also she remains on dexamethasone, and so a heparin to Lovenox. Also continued on seizure medication 1500 mg twice a day and IV fluids per pulmonary team. Neurology team on the case 09/13/2021 Patient remains intubated and sedated with pulmonary/critical care team following her closely. Her PEEP is lower today to 18. She remains on FiO2 of 50%. She is tachypneic at 32 about blood pressure is controlled. Her inflammatory markers are increased to LDH of 1009 and CRP of 25.1. Bicarb is elevated at 31 WBC is 17.7, sodium improved to 142. Creatinine improved to 0.6. Chest x-ray showed improving left lung infiltrate. PH is improved slightly 7.2 with pCO2 is slightly better at 79. Urine culture is growing E. coli which is sensitive to the antibiotics. Currently patient is covered with clindamycin, Levaquin and fluconazole. Also she is on dexamethasone 6 mg, Keppra 1500 mg and half-normal saline at 50 mL per hour Anticoagulation switch from heparin drip and to Lovenox 09/14/2021 Patient still intubated and sedated on mechanical ventilation with pulmonary/critical care team following her closely and just her vent setting. Today her FiO2 of 55%, and she is tachypneic at 33 breath per minute. Labs showing stable findings with sodium 141, creatinine 0.8, liver enzymes slightly elevated, LDH slightly down at 797 and CRP 2-3.2. Same leukocytosis at 14.7. Her pH is 7.2 and carbon dioxide is 82. D-dimer mildly elevated at 0.9, just x-ray showing bilateral infiltrate with no significant change from prior. She remains on the same antibiotic of clindamycin, Levaquin, dexamethasone, Keppra 1500 mg and half normal saline at 50 mL/h 09/15/2021 Patient in the ICU intubated and sedated, with pulmonary/critical care team following closely. FiO2 still 50%, hemodynamically showing both staple blood pressure 101/40, patient is tachypneic more than 30 per minutes. PEEP is lower. wbc of 11.3, hemoglobin 9.4, sodium 140, creatinine 0.8. chest x-ray: mild worsening infiltrate in the left lobe. patient continued with the same treatment of clindamycin, levaquin, dexamethasone, keppra and she received 1 l of normal saline today. 09/16/2021 Patient is seen and evaluated and follow-up continues to be closely monitored in the ICU. Multiple medical consultations following including infectious disease, pulmonary volleyball referee, and neurology. Patient continues on mechanical vent with an FiO2 of 50% and PEEP is 10. Weaning is being continued and PEEP is being titrated down to 8. Patient continues with sedation holidays and very minimal propofol and patient is now off Nimbex and very minimal stimulus noted. Patient response to painful stimulus minimally. Plan is for possible CT of the brain repeat this afternoon. Patient also being closely monitored for continued seizures of which she does have a past medical history of. Patient is also Covid positive and infectious disease is following and patient is maintained on clindamycin along with Levaquin. Chest x-ray today shows correlate for left lower lobe pneumonia versus atelectasis with possible associated effusion. 09/17/2021 Patient is seen in follow-up this morning closely monitored in the ICU. Neurology also following and patient is maintained on IV Keppra. Patient also continues on IV antibiotics in the form of aztreonam and clindamycin with infectious disease following. Patient urine culture showing E. coli. Chest x- ray today shows chronic emphysematous changes with left basilar acute infiltrate and/or atelectasis and likely small left pleural effusion all redemonstrated with no significant change from previous day. Neurology following And okay to resume anticoagulant as there is no evidence of new intracranial process or hemorrhage. Patient is off sedation and continues to be unresponsive. 09/18/2021 Patient is evaluated again this morning and continues to be in the ICU on mechanical vent and being closely monitored. FiO2 is at 45% and PEEP is 8. Patient continues to be off sedation with no response for over 24 hours. Neurology following as well and have discussed overall prognosis with family and family discussing with other family members about CODE STATUS and treatment plan moving forward. Infectious disease also following and patient is maintained on IV Levaquin along with clindamycin and aztreonam and will continue. Urine cultures finalized showing E. coli and sputum culture preliminary is pending at this time. 09/19/2020 Patient evaluated today in the ICU on mechanical ventilation. Fi02 at 45% with a PEEP of 8. Propofol infusing, Nimbex and Levophed are currently on hold. Pre cedex discontinued. There has been no response, and mental status is not improving. Still no response to verbal stimuli. Patient is being followed closely by neurology for this and is on IV keppra and tegretol. EEG consistant with toxic metabolic encepholapthy. Repeat chest xray today shows similar opacities given patient rotation. Stable support tubes. Mild pulmonary vascular congestion correlate with serum BNP. Blood cultures negative, pending finalized, sputum negative so far. Labs reviewed today: WBC 9.2, hgb 10.3, sodium 138, potassium 3.8, BUN 33, Cr 0.76, glucose in the 110's, calcium 7.9, AST 250, ALT 78, Albumin 2.3. Vitals reviewed: Temp 97.4, HR 126, RR 44, Blood pressure 113/80, 96% oxygen saturation on mechanical ventilation. 09/20/2021 Patient evaluated in ICU on mechanical ventilation with an Fi02 of 45%, PEEP of 12. Chest xray today shows left lower lobe atelectasis versus pneumonia with similar findings as previous. BNP yesterday 12,500, however xray reviewed and do es not appear to be showing heart failure. She is in negative fluid balance. Status was addressed with family by neurology who is awaiting a phone call back. White count 12.8, RBC 3.5, sodium 137 potassium 3.8, chloride 101, CO2 33, BUN 35, creatinine 0.68, blood sugars in the 120s, AST 424, ALT 115, alk phos 63. Running temps today 100.8, heart rate 123, respiratory rate 36, blood pressure 95/65, oxygen saturation of 93-94%. Blood pressures are on the softer side 88/55. Current infusions include propofol which has been resumed as patient has not shown any signs of neurological improvement while on a propofol break. 09/21/2021 Patient is seen in follow up today and continues to be on mechanical vent with an FI02 of 45% with a peep of 8 and multiple medical consultations following. Chest xray similar from previous with copd and continued focal basilar left lower lobe retrocardiac consolidation or atelectasis. Patient is on propofol and general surgery has been consulted for peg and trach placement. Plan for surgery is tomorrow. 09/22/2021 Patient is seen and evaluated in follow-up this morning continues on mechanical ventilation with a PEEP of 8 and FiO2 is 45%. General surgery following an plan is for PEG and trach placement today due to prolonged mechanical ventilation and no improvements or weaning from the vent. Patient continues on tube feeding along with Lovenox which is currently on hold for the surgical procedure. Patient's chest x-ray today shows diffuse bilateral infiltrates that are stable with no pneumothorax or pleural effusion noted. Patient also had gallbladder ultrasound secondary to elevated liver functions and shows hepatomegaly otherwise unremarkable. Patient is continued on antifungal's along with vancomycin and infectious disease following closely. Sputum cultures preliminary showing Radha glabrata and Staphylococcus aureus and most recent blood cultures have been negative. 09/23/2021 Patient is seen in follow-up this morning and patient was unable to receive PEG and trach with general surgery following yesterday and plan is for today. Patient continues on mechanical vent and FiO2 is 45% with a PEEP of 8. Lovenox and tube feeding currently on hold. Chest xray reviewed and no acute changes from yesterday. Continues to be unresponsive. Prognosis remains poor. 09/24/2021 Patient is seen this morning status post PEG and trach placement and is resuming tube feedings with general surgery following. Patient continues on mechanical vent with an FiO2 of 40% and PEEP is 8. Per nursing staff working on weaning sedation and assessing neuro status. Continues with being obtunded and no purposeful movements noted. Chest xray shows COPD with improvement in previous left pleural effusion with mild patchy infiltrates/retrocardiac atelectasis noted. 09/25/2021 Patient is seen and evaluated today continues to be in the ICU on mechanical ventilation and continues on sedation with attempts at weaning. FI02 is 40% and peep of 8. Multiple medical consultations following. Plan is for repeat ct of the brain sometime this afternoon. Per nursing staff patient is tolerating tube feeds. Chest xray today shows suboptimal study due to positioning and unable to exclude some worsening atelectasis or infiltrate. 09/26/2021 Patient is in the MICU. Status post tracheostomy and PEG tube placement on 09/23/2021 remains on mechanical ventilator. FiO2 40% and PEEP of 8. Patient remains unresponsive and does not follow simple commands. Repeat CT done on 09/25/2021 showed findings consistent with cerebrovascular infarction bilaterally. May be indicative of otitis media bilaterally. No acute brain abnormality evident. Patient is being continued antibiotics in the form of Levaquin and Eraxis per bacterial pneumonia and sputum cultures growing Radha and staph aureus. Laboratory data showed WBC 8.7 hemoglobin 8.8 and platelets 330 Sodium 138 potassium 3.6 chloride 102 bicarb is 34 BUN 2019 creatinine 0.38 and calcium 8.4 Patient is being continued antibiotics and antiepileptic medications. Pulmonary, neurology and ID is on board. 09/27/2019 Patient is in the MICU. Status post tracheostomy and PEG tube placement and mechanical ventilator. Patient is off sedation. Currently on assist control with tidal volume 325 FiO2 35% and PEEP of 8. Patient remains obtunded and does not follow simple commands. Chest x-ray showed improvement in the opacity in the obscuring the left hemidiaphragm on the prior study. Most likely represents decreasing small pleural effusion Laboratory showed WBC 8.3 hemoglobin 9.5 platelets 102 sodium 138 potassium 4.0 chloride 103 bicarb is 31 BUN 2020 creatinine 0.45 calcium 8.8 patient is being current on antibiotics in the form of Levaquin and Eraxis. Decadron has been discontinued. 10/02/2021 Patient is able to open her eyes with verbal stimuli. Able to move her upper extremities. But patient is unable to move her lower extremities. Feels extremely weak. Able to follow simple commands. Patient is mechanical ventilator via trach tube. Chest x-ray showed unchanged with atelectasis of the left lung base. Patient remains antibiotics above vancomycin. Sputum cultures are growing staph aureus. Patient is on anticoagulation with Eliquis.. Patient is on amiodarone and also on antiepileptic medications. Laboratory data showed WBC 6.4 hemoglobin 8.9 and platelets 219 sodium 136 potassium 3.5 chloride 104 bicarb is 25 BUN 21 creatinine 0.34 and calcium 8.3 Neurology and pulmonary is on board. 10/03/2021 Patient is awake and alert. Able to move her upper extremities. Feels generalized weakness and remains on mechanical ventilator. Currently on pressure support. With PEEP of 5. Patient has been afebrile. Currently on antibiotics in the form of vancomycin. Chest x-ray showed no acute abnormalities. Ongoing left lower lobe atelectasis. Patient is tolerating tube feeding. Laboratory showed WBC 6.8 hemoglobin 8.3 and platelets 201 sodium 135 potassium 3.5 chloride 103 bicarb is 26 BUN 69 creatinine 0.38 and blood sugar is 102 calcium 8.4 Patient is being continued antibiotics in the form of vancomycin. Cardiogram Eliquis and multivitamins. Current antiblood medication. Patient remains sinus rhythm. PVCs noted. Review of systems: Unable to obtain as patient continues to be on mechanical ventilation and sedated Current medications reviewed. Objective - Vital Signs Vital signs: Vital Signs Temp 99.6 F 10/03/21 12:00 Pulse 126 H 10/03/21 14:00 Resp 23 10/03/21 14:00 BP 153/72 10/03/21 14:00 Pulse Ox 94 L 10/03/21 14:00 Intake & Output 10/02/21 10/03/21 10/03/21 18:59 06:59 18:59 Intake Total 4487.628 6927 1295 Output Total 1090 1085 3850 Balance 707.834 590 -2555 Weight 58.3 kg 59.1 kg Intake: IV 940 940 630 .9NS 20 240 240 180 Sodium Chloride 0.45% 1, 600 600 450 000 ml @ 50 mls/hr IV . Q20H ADD[facility] Rx#:[id number] levETIRAcetam IV 1,500 mg 100 100 In Saline 1 100ml.bag @ 400 mls/hr IVPB Q12HR ADDIE Rx#:[id number] Intake, IV Titration 307.834 250 250 Amount Clevidipine Butyrate 25 57.834 mg In Empty Bag 1 bag @ 1 MG/HR 2 mls/hr IV .Q24H [facility]IE Rx#:[id number] Vancomycin 1,000 mg In 250 250 250 Sodium Chloride 0.9% 250 ml @ 125 mls/hr IVPB Q8H ADDIE Rx#:[id number] Tube Feeding 550 425 315 TPN/PPN 100 levETIRAcetam IV 1,500 mg 100 In Saline 1 100ml.bag @ 400 mls/hr IVPB Q12HR ADDIE Rx#:[id number] Other 60 Output: Urine 1090 1085 3850 Other: Voiding Method Indwelling Catheter Indwelling Catheter Indwelling Catheter ABP, PAP, CO, CI - Last Documented Arterial Blood Pressure 123/58 - Exam Physical exam: GENERAL: Please awake alert and oriented. Unable to communicate. Able to open her eyes with verbal stimuli. HEENT: Pupils are round and equally reacting to light. EOMI. No scleral icterus. No conjunctival pallor. Normocephalic, atraumatic. No pharyngeal erythema. No thyromegaly. CARDIOVASCULAR: S1 and S2 present. No murmurs, rubs, or gallops. PULMONARY: diminished breath sounds bilaterally with coarse rhonchi noted ABDOMEN: Soft, nontender, nondistended, normoactive bowel sounds. No palpable organomegaly. MUSCULOSKELETAL: No joint swelling or deformity. EXTREMITIES: No cyanosis, clubbing, or pedal edema. NEUROLOGICAL: Patient is able to open her eyes and follow simple commands. Able to move her upper extremities. Unable to move lower extremities. SKIN: No rashes. no petechiae. - Labs CBC & Chem 7: 10/04/21 09:03 10/04/21 09:03 Labs: Abnormal Lab Results - Last 24 Hours (Table) 10/02/21 10/03/21 10/03/21 Range/Units 18:06 05:44 06:08 RBC (3.80-5.40) m/uL Hgb (11.4-16.0) gm/dL Hct (34.0-46.0) % MCV (80.0-100.0) fL Lymphocytes # (1.0-4.8) k/uL ABG pH 7.53 H (7.35-7.45) ABG pCO2 33 L (35-45) mmHg ABG HCO3 28 H (21-25) mmol/L ABG Total CO2 29 H (19-24) mmol/L ABG O2 Saturation 98.8 H (94-97) % Sodium (137-145) mmol/L Creatinine (0.52-1.04) mg/dL Glucose (74-99) mg/dL POC Glucose (mg/dL) 111 H 113 H (75-99) mg/dL 10/03/21 10/03/21 10/03/21 Range/Units 07:09 07:09 11:46 RBC 2.56 L (3.80-5.40) m/uL Hgb 8.3 L (11.4-16.0) gm/dL Hct 26.3 L (34.0-46.0) % MCV 102.8 H (80.0-100.0) fL Lymphocytes # 0.9 L (1.0-4.8) k/uL ABG pH (7.35-7.45) ABG pCO2 (35-45) mmHg ABG HCO3 (21-25) mmol/L ABG Total CO2 (19-24) mmol/L ABG O2 Saturation (94-97) % Sodium 135 L (137-145) mmol/L Creatinine 0.38 L (0.52-1.04) mg/dL Glucose 102 H (74-99) mg/dL POC Glucose (mg/dL) 126 H (75-99) mg/dL Microbiology - Last 24 Hours (Table) 10/01/21 09:50 Gram Stain - Final Sputum Sputum Culture - Final Radha sp,not albicans/galbr 10/01/21 05:56 Blood Culture - Preliminary Blood No Growth after 48 hours Assessment and Plan Assessment: Altered mental status possibly secondary to metabolic/toxic encephalopathy, ruled out other intracranial lesions, and possibly secondary to seizures. improving slowly Acute hypoxic respiratory failure secondary to COVID-19 pneumonia requiring mechanical ventilation status post peg tube and tracheostomy placement Left lower lobe pneumonia, rule out aspiration pneumonia.sputum Cultures growing staph aureus. Acute urinary tract infection, present on admission with culture showing E. coli, adequately treated Sepsis secondary to UTI and pneumonia Breakthrough seizure Bilateral interstitial Covid 19 pneumonia Increased inflammatory markers of covid 19 elevated troponins on admission, most likely type II ischemia secondary to acute kidney injury and possibly secondary to electrolyte abnormalities. Cardiomyopathy with most recent EF of 30-35% Paroxysmal atrial fibrillation. Currently maintaining sinus rhythm. Continue with oral amiodarone and beta-blockers. Patient is on anticoagulation with Eliquis. Hypernatremia, improved Acute kidney injury, improved Mild elevated liver enzymes History of coronary artery disease History of pulmonary embolism History of seizure disorder, last seizure was in 2009 as per documents History 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 left foot drop History of glaucoma status post surgery Status post permanent pacemaker Nicotine dependence GI prophylaxis DVT prophylaxis Full code Plan: This is a pleasant 51 years old female who presented with altered mental status, pneumonia, UTI, possible stroke although most likely old infarcts noted on CT, seizure and positive for covid pneumonia patient was intubated and continues on mechanical ventilation with a FiO2 of 30% and PEEP is 5. Patient is status post PEG and trach placement recently from prolonged mechanical ventilation. Continue with Keppra and neurology following as needed pulmonary and infectious disease following, continue with antifungals, Levaquin discontinued recently, crp is elevated and procalcitonin is .12 and having low grade temps and was started on vancomycin.Sputum culture showed staph aureus. Continue with vitamin and zinc supplements. Overall Prognosis remains extremely guarded Social work following and working on possible LTAC and peer to peer denied and awaiting appeal. Will continue to monitor closely. Time with Patient: Greater than 30
--- NOTE | 2021-10-04 23:10 | P.PN ---
Subjective Progress Note Date: 10/04/21 This is a pleasant 51 years old female with past medical history of Coronary Artery Disease, Heart Failure, CVA/TIA, Pulmonary Embolus (PE), Seizure Disorder, Last seizure 2009, CVA 2007 with L sided weakness arm and leg and has L foot drop, TIA 2018, cardiomyopathy, R PE and pneumothorax/pneumonia following leg fracture in 1994, gestational diabetes with all pregnancies , bilateral glaucoma with surgery, psoriasis in the past, UTIs. She is a status post Pacemaker, history of Bilateral eye surgery for glaucoma, Anxiety, Depression, Current every day smoker Patient presents because of altered mental status. Information was limited from the patient. It was obtained from the chart and medical staff. Also as per family patient was able to go to the bathroom, was more lethargic and tired over the last day. While in the emergency room focal mild seizure is noticed On admission patient had and fever of 101. She is tachypneic at 26-40, tachycardic 110-140, also she is hypoxic saturating 72% on room air Labs showing WBC of 10.5, hemoglobin of 16.3, platelet count of 197. INR 1.7. Sodium 164, creatinine 1.7, lactic acid elevated 4.6. Liver enzymes elevated with AST 202 and ALT 81. Bilirubin is normal at 1.3. Urine analysis is highly suspicious of infection Urine drug screen is negative Cash versus positive Chest x-ray showing left perihilar and left lower lobe area of infiltrate and small effusion correlates for pneumonia CT of the brain without contrast showing no intracranial hemorrhage, evidence of remote ischemic change. However there is vague low attenuation near the left thalamus and left cerebral peduncle. Acute ischemia in the differential diagnosis. Recommend stat MRI of brain with MRSA [place] as clinically warranted. In the emergency room patient was started on aztreonam and IV vancomycin, Keppra and heparin drip 09/11/2021 Patient today was still in the ICU, she was very weak and obtunded, she will wake up to certain stabilized and moans, she does not follow commands she cannot, gait she moved both extremities symmetrically. R on she had collapse of her left lung cancer and she has to be intubated and repeat chest x-ray showing better. A of the left lung. She is tachypneic with a breathing rate 22, no more fever since yesterday. Her sodium improved down to 144 and she was started on normal saline, creatinine 1.1, Ejection fraction showed 30-35% which is slice worsened from 06/2021 where it was 35-40% She remains on dexamethasone, IV vancomycin and clindamycin, heparin drip, Keppra and normal saline at 75 mL/h 09/12/2021 Patient with respiratory failures and she was intubated and placed on mechanical ventilation with pulmonary/critical care team following her mostly. There is no more seizure-like activity noticed. She still tachypneic with a breathing rate of 32 blood pressure 100/70, she is needing FiO2 of 80% and PEEP of 20. She has no more fevers since admission. Urine culture is growing gram-negative bacilli. Sodium is 146, WBCs is increased at 16.5 K. PH showing acidosis with 7.1 and elevated pCO2 at 83. Chest x-ray showing left sided opacities with near full. A of the left lung. Patient kept on antibiotics in the form of clindamycin and Levaquin and fluconazole. Also she remains on dexamethasone, and so a heparin to Lovenox. Also continued on seizure medication 1500 mg twice a day and IV fluids per pulmonary team. Neurology team on the case 09/13/2021 Patient remains intubated and sedated with pulmonary/critical care team following her closely. Her PEEP is lower today to 18. She remains on FiO2 of 50%. She is tachypneic at 32 about blood pressure is controlled. Her inflammatory markers are increased to LDH of 1009 and CRP of 25.1. Bicarb is elevated at 31 WBC is 17.7, sodium improved to 142. Creatinine improved to 0.6. Chest x-ray showed improving left lung infiltrate. PH is improved slightly 7.2 with pCO2 is slightly better at 79. Urine culture is growing E. coli which is sensitive to the antibiotics. Currently patient is covered with clindamycin, Levaquin and fluconazole. Also she is on dexamethasone 6 mg, Keppra 1500 mg and half-normal saline at 50 mL per hour Anticoagulation switch from heparin drip and to Lovenox 09/14/2021 Patient still intubated and sedated on mechanical ventilation with pulmonary/critical care team following her closely and just her vent setting. Today her FiO2 of 55%, and she is tachypneic at 33 breath per minute. Labs showing stable findings with sodium 141, creatinine 0.8, liver enzymes slightly elevated, LDH slightly down at 797 and CRP 2-3.2. Same leukocytosis at 14.7. Her pH is 7.2 and carbon dioxide is 82. D-dimer mildly elevated at 0.9, just x-ray showing bilateral infiltrate with no significant change from prior. She remains on the same antibiotic of clindamycin, Levaquin, dexamethasone, Keppra 1500 mg and half normal saline at 50 mL/h 09/15/2021 Patient in the ICU intubated and sedated, with pulmonary/critical care team following closely. FiO2 still 50%, hemodynamically showing both staple blood pressure 101/40, patient is tachypneic more than 30 per minutes. PEEP is lower. wbc of 11.3, hemoglobin 9.4, sodium 140, creatinine 0.8. chest x-ray: mild worsening infiltrate in the left lobe. patient continued with the same treatment of clindamycin, levaquin, dexamethasone, keppra and she received 1 l of normal saline today. 09/16/2021 Patient is seen and evaluated and follow-up continues to be closely monitored in the ICU. Multiple medical consultations following including infectious disease, pulmonary fan runner, and neurology. Patient continues on mechanical vent with an FiO2 of 50% and PEEP is 10. Weaning is being continued and PEEP is being titrated down to 8. Patient continues with sedation holidays and very minimal propofol and patient is now off Nimbex and very minimal stimulus noted. Patient response to painful stimulus minimally. Plan is for possible CT of the brain repeat this afternoon. Patient also being closely monitored for continued seizures of which she does have a past medical history of. Patient is also Covid positive and infectious disease is following and patient is maintained on clindamycin along with Levaquin. Chest x-ray today shows correlate for left lower lobe pneumonia versus atelectasis with possible associated effusion. 09/17/2021 Patient is seen in follow-up this morning closely monitored in the ICU. Neurology also following and patient is maintained on IV Keppra. Patient also continues on IV antibiotics in the form of aztreonam and clindamycin with infectious disease following. Patient urine culture showing E. coli. Chest x- ray today shows chronic emphysematous changes with left basilar acute infiltrate and/or atelectasis and likely small left pleural effusion all redemonstrated with no significant change from previous day. Neurology following And okay to resume anticoagulant as there is no evidence of new intracranial process or hemorrhage. Patient is off sedation and continues to be unresponsive. 09/18/2021 Patient is evaluated again this morning and continues to be in the ICU on mechanical vent and being closely monitored. FiO2 is at 45% and PEEP is 8. Patient continues to be off sedation with no response for over 24 hours. Neurology following as well and have discussed overall prognosis with family and family discussing with other family members about CODE STATUS and treatment plan moving forward. Infectious disease also following and patient is maintained on IV Levaquin along with clindamycin and aztreonam and will continue. Urine cultures finalized showing E. coli and sputum culture preliminary is pending at this time. 09/19/2020 Patient evaluated today in the ICU on mechanical ventilation. Fi02 at 45% with a PEEP of 8. Propofol infusing, Nimbex and Levophed are currently on hold. Pre cedex discontinued. There has been no response, and mental status is not improving. Still no response to verbal stimuli. Patient is being followed closely by neurology for this and is on IV keppra and tegretol. EEG consistant with toxic metabolic encepholapthy. Repeat chest xray today shows similar opacities given patient rotation. Stable support tubes. Mild pulmonary vascular congestion correlate with serum BNP. Blood cultures negative, pending finalized, sputum negative so far. Labs reviewed today: WBC 9.2, hgb 10.3, sodium 138, potassium 3.8, BUN 33, Cr 0.76, glucose in the 110's, calcium 7.9, AST 250, ALT 78, Albumin 2.3. Vitals reviewed: Temp 97.4, HR 126, RR 44, Blood pressure 113/80, 96% oxygen saturation on mechanical ventilation. 09/20/2021 Patient evaluated in ICU on mechanical ventilation with an Fi02 of 45%, PEEP of 12. Chest xray today shows left lower lobe atelectasis versus pneumonia with similar findings as previous. BNP yesterday 12,500, however xray reviewed and do es not appear to be showing heart failure. She is in negative fluid balance. Status was addressed with family by neurology who is awaiting a phone call back. White count 12.8, RBC 3.5, sodium 137 potassium 3.8, chloride 101, CO2 33, BUN 35, creatinine 0.68, blood sugars in the 120s, AST 424, ALT 115, alk phos 63. Running temps today 100.8, heart rate 123, respiratory rate 36, blood pressure 95/65, oxygen saturation of 93-94%. Blood pressures are on the softer side 88/55. Current infusions include propofol which has been resumed as patient has not shown any signs of neurological improvement while on a propofol break. 09/21/2021 Patient is seen in follow up today and continues to be on mechanical vent with an FI02 of 45% with a peep of 8 and multiple medical consultations following. Chest xray similar from previous with copd and continued focal basilar left lower lobe retrocardiac consolidation or atelectasis. Patient is on propofol and general surgery has been consulted for peg and trach placement. Plan for surgery is tomorrow. 09/22/2021 Patient is seen and evaluated in follow-up this morning continues on mechanical ventilation with a PEEP of 8 and FiO2 is 45%. General surgery following an plan is for PEG and trach placement today due to prolonged mechanical ventilation and no improvements or weaning from the vent. Patient continues on tube feeding along with Lovenox which is currently on hold for the surgical procedure. Patient's chest x-ray today shows diffuse bilateral infiltrates that are stable with no pneumothorax or pleural effusion noted. Patient also had gallbladder ultrasound secondary to elevated liver functions and shows hepatomegaly otherwise unremarkable. Patient is continued on antifungal's along with vancomycin and infectious disease following closely. Sputum cultures preliminary showing Radha glabrata and Staphylococcus aureus and most recent blood cultures have been negative. 09/23/2021 Patient is seen in follow-up this morning and patient was unable to receive PEG and trach with general surgery following yesterday and plan is for today. Patient continues on mechanical vent and FiO2 is 45% with a PEEP of 8. Lovenox and tube feeding currently on hold. Chest xray reviewed and no acute changes from yesterday. Continues to be unresponsive. Prognosis remains poor. 09/24/2021 Patient is seen this morning status post PEG and trach placement and is resuming tube feedings with general surgery following. Patient continues on mechanical vent with an FiO2 of 40% and PEEP is 8. Per nursing staff working on weaning sedation and assessing neuro status. Continues with being obtunded and no purposeful movements noted. Chest xray shows COPD with improvement in previous left pleural effusion with mild patchy infiltrates/retrocardiac atelectasis noted. 09/25/2021 Patient is seen and evaluated today continues to be in the ICU on mechanical ventilation and continues on sedation with attempts at weaning. FI02 is 40% and peep of 8. Multiple medical consultations following. Plan is for repeat ct of the brain sometime this afternoon. Per nursing staff patient is tolerating tube feeds. Chest xray today shows suboptimal study due to positioning and unable to exclude some worsening atelectasis or infiltrate. 09/26/2021 Patient is in the MICU. Status post tracheostomy and PEG tube placement on 09/23/2021 remains on mechanical ventilator. FiO2 40% and PEEP of 8. Patient remains unresponsive and does not follow simple commands. Repeat CT done on 09/25/2021 showed findings consistent with cerebrovascular infarction bilaterally. May be indicative of otitis media bilaterally. No acute brain abnormality evident. Patient is being continued antibiotics in the form of Levaquin and Eraxis per bacterial pneumonia and sputum cultures growing Radha and staph aureus. Laboratory data showed WBC 8.7 hemoglobin 8.8 and platelets 330 Sodium 138 potassium 3.6 chloride 102 bicarb is 34 BUN 2019 creatinine 0.38 and calcium 8.4 Patient is being continued antibiotics and antiepileptic medications. Pulmonary, neurology and ID is on board. 09/27/2019 Patient is in the MICU. Status post tracheostomy and PEG tube placement and mechanical ventilator. Patient is off sedation. Currently on assist control with tidal volume 325 FiO2 35% and PEEP of 8. Patient remains obtunded and does not follow simple commands. Chest x-ray showed improvement in the opacity in the obscuring the left hemidiaphragm on the prior study. Most likely represents decreasing small pleural effusion Laboratory showed WBC 8.3 hemoglobin 9.5 platelets 102 sodium 138 potassium 4.0 chloride 103 bicarb is 31 BUN 2020 creatinine 0.45 calcium 8.8 patient is being current on antibiotics in the form of Levaquin and Eraxis. Decadron has been discontinued. 10/02/2021 Patient is able to open her eyes with verbal stimuli. Able to move her upper extremities. But patient is unable to move her lower extremities. Feels extremely weak. Able to follow simple commands. Patient is mechanical ventilator via trach tube. Chest x-ray showed unchanged with atelectasis of the left lung base. Patient remains antibiotics above vancomycin. Sputum cultures are growing staph aureus. Patient is on anticoagulation with Eliquis.. Patient is on amiodarone and also on antiepileptic medications. Laboratory data showed WBC 6.4 hemoglobin 8.9 and platelets 219 sodium 136 potassium 3.5 chloride 104 bicarb is 25 BUN 21 creatinine 0.34 and calcium 8.3 Neurology and pulmonary is on board. 10/03/2021 Patient is awake and alert. Able to move her upper extremities. Feels generalized weakness and remains on mechanical ventilator. Currently on pressure support. With PEEP of 5. Patient has been afebrile. Currently on antibiotics in the form of vancomycin. Chest x-ray showed no acute abnormalities. Ongoing left lower lobe atelectasis. Patient is tolerating tube feeding. Laboratory showed WBC 6.8 hemoglobin 8.3 and platelets 201 sodium 135 potassium 3.5 chloride 103 bicarb is 26 BUN 69 creatinine 0.38 and blood sugar is 102 calcium 8.4 Patient is being continued antibiotics in the form of vancomycin. Cardiogram Eliquis and multivitamins. Current antiblood medication. Patient remains sinus rhythm. PVCs noted. 10/04/2021 Patient remains on mechanical ventilator via tracheostomy tube. Pressure control with FiO2 40% and PEEP of 5. Patient is otherwise awake alert and able to follow simple commands. Continues to have extreme weakness. Able to move her upper extremities but not lower extremities. Chest x-ray showed persistent left lower lobe effusion/consolidation. Patient is being continued on antibiotics in the form of vancomycin. Sputum cultures growing Radha species. Not albicans. Patient remains on antibiotics. Also on Eraxis. T-max 100.1. Patient is sinus rhythm. Continue anticoagulation with Eliquis and rate control with metoprolol and also on oral amiodarone. Laboratory data showed WBC 6.1 hemoglobin 7.8 and platelets 239 sodium 133 potassium 3.6 chloride 100 bicarb is 28 BUN 19 and creatinine 0.4 and blood sugar is 111 calcium 8.3 and vancomycin trough is 37.1. Pulmonary, ID and neurology is on board. Review of systems: Unable to obtain as patient continues to be on mechanical ventilation and sedated Current medications reviewed. Objective - Vital Signs Vital signs: Vital Signs Temp 99.1 F 10/04/21 16:00 Pulse 98 10/04/21 21:00 Resp 24 10/04/21 21:00 BP 133/76 10/04/21 21:00 Pulse Ox 97 02/06/22 21:00 Intake & Output 10/04/21 10/04/21 10/05/21 06:59 18:59 06:59 Intake Total 1250 1830 180 Output Total 795 1170 150 Balance 455 660 30 Weight 61 kg Intake: IV 740 1000 120 .9NS 20 240 520 120 Anidulafungin 100 mg In 130 Sodium Chloride 0.9% 100 ml @ 84 mls/hr IVPB DAILY @1700 ADDIE Rx#:[id number] Sodium Chloride 0.45% 1, 500 250 000 ml @ 50 mls/hr IV . Q20H [facility] Rx#:[id number] levETIRAcetam IV 1,500 mg 100 In Saline 1 100ml.bag @ 400 mls/hr IVPB Q12HR [facility] Rx#:[id number] Intake, IV Titration 500 Amount Vancomycin 1,000 mg In 500 Sodium Chloride 0.9% 250 ml @ 125 mls/hr IVPB Q8H [facility] Rx#:[id number] Tube Feeding 420 330 60 Other 90 Output: Urine 795 1170 150 Other: Voiding Method Indwelling Catheter Indwelling Catheter Indwelling Catheter ABP, PAP, CO, CI - Last Documented Arterial Blood Pressure 123/58 - Exam Physical exam: GENERAL: Please awake alert and oriented. Unable to communicate. Able to open her eyes with verbal stimuli. HEENT: Pupils are round and equally reacting to light. EOMI. No scleral icterus. No conjunctival pallor. Normocephalic, atraumatic. No pharyngeal erythema. No thyromegaly. CARDIOVASCULAR: S1 and S2 present. No murmurs, rubs, or gallops. PULMONARY: diminished breath sounds bilaterally with coarse rhonchi noted ABDOMEN: Soft, nontender, nondistended, normoactive bowel sounds. No palpable organomegaly. MUSCULOSKELETAL: No joint swelling or deformity. EXTREMITIES: No cyanosis, clubbing, or pedal edema. NEUROLOGICAL: Patient is able to open her eyes and follow simple commands. Able to move her upper extremities. Unable to move lower extremities. SKIN: No rashes. no petechiae. - Labs CBC & Chem 7: 10/04/21 09:03 10/04/21 09:03 Labs: Abnormal Lab Results - Last 24 Hours (Table) 10/03/21 10/04/21 10/04/21 Range/Units 23:17 05:26 09:03 RBC (3.80-5.40) m/uL Hgb (11.4-16.0) gm/dL Hct (34.0-46.0) % MCV (80.0-100.0) fL Sodium 133 L (137-145) mmol/L BUN 19 H (7-17) mg/dL Creatinine 0.40 L (0.52-1.04) mg/dL Glucose 111 H (74-99) mg/dL POC Glucose (mg/dL) 117 H 114 H (75-99) mg/dL Calcium 8.3 L (8.4-10.2) mg/dL Vancomycin Trough ug/mL 10/04/21 10/04/21 10/04/21 Range/Units 09:03 09:03 12:10 RBC 2.45 L (3.80-5.40) m/uL Hgb 7.8 L (11.4-16.0) gm/dL Hct 24.7 L (34.0-46.0) % MCV 100.8 H (80.0-100.0) fL Sodium (137-145) mmol/L BUN (7-17) mg/dL Creatinine (0.52-1.04) mg/dL Glucose (74-99) mg/dL POC Glucose (mg/dL) 113 H (75-99) mg/dL Calcium (8.4-10.2) mg/dL Vancomycin Trough 37.1 H* ug/mL 10/04/21 Range/Units 17:31 RBC (3.80-5.40) m/uL Hgb (11.4-16.0) gm/dL Hct (34.0-46.0) % MCV (80.0-100.0) fL Sodium (137-145) mmol/L BUN (7-17) mg/dL Creatinine (0.52-1.04) mg/dL Glucose (74-99) mg/dL POC Glucose (mg/dL) 125 H (75-99) mg/dL Calcium (8.4-10.2) mg/dL Vancomycin Trough ug/mL Microbiology - Last 24 Hours (Table) 10/03/21 18:31 Blood Culture - Preliminary Blood No Growth after 24 hours 10/01/21 05:56 Blood Culture - Preliminary Blood No Growth after 72 hours Assessment and Plan Assessment: Altered mental status possibly secondary to metabolic/toxic encephalopathy, ruled out other intracranial lesions, and possibly secondary to seizures. improving slowly Acute hypoxic respiratory failure secondary to COVID-19 pneumonia requiring mechanical ventilation status post peg tube and tracheostomy placement Left lower lobe pneumonia, rule out aspiration pneumonia.sputum Cultures growing staph aureus. Acute urinary tract infection, present on admission with culture showing E. coli, adequately treated Sepsis secondary to UTI and pneumonia Breakthrough seizure Bilateral interstitial Covid 19 pneumonia Increased inflammatory markers of covid 19 elevated troponins on admission, most likely type II ischemia secondary to acute kidney injury and possibly secondary to electrolyte abnormalities. Cardiomyopathy with most recent EF of 30-35% Paroxysmal atrial fibrillation. Currently maintaining sinus rhythm. Continue with oral amiodarone and beta-blockers. Patient is on anticoagulation with Eliquis. Hypernatremia, improved Acute kidney injury, improved Mild elevated liver enzymes History of coronary artery disease History of pulmonary embolism History of seizure disorder, last seizure was in 2009 as per documents History 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 left foot drop History of glaucoma status post surgery Status post permanent pacemaker Nicotine dependence GI prophylaxis DVT prophylaxis Full code Plan: This is a pleasant 51 years old female who presented with altered mental status, pneumonia, UTI, possible stroke although most likely old infarcts noted on CT, seizure and positive for covid pneumonia patient was intubated and continues on mechanical ventilation with a FiO2 of 40% and PEEP is 5. Patient is status post PEG and trach placement recently from prolonged mechanical ventilation. Continue with Keppra and neurology following as needed pulmonary and infectious disease following, continue with antifungals, Levaquin discontinued recently and having low grade temps and was started on vancomycin. also on eraxis. Sputum culture showed staph aureus and radha. Continue with vitamin and zinc supplements. Overall Prognosis remains extremely guarded Social work following and working on possible LTAC and peer to peer denied and awaiting appeal. Will continue to monitor closely. Time with Patient: Greater than 30
[2021-10-04 23:54] LABS: Glucose,Whole Blood 122 mg/dL (75-99)
[2021-10-05] MEDS: INSULIN ASPART (NovoLOG) 100 UNIT/ML VIAL SQ SCH ×4 (03:08→18:23)
[2021-10-05 05:17] LABS: ABG Base Excess 6.8 mmol/L; ABG HCO3 30 mmol/L (21-25); ABG Oxygen Saturation 97.9 % (94-97); ABG PCO2 38 mmHg (35-45); ABG PO2 95 mmHg (83-108); ABG TCO2 31 mmol/L (19-24); Allen Test Performed? Yes
[2021-10-05 05:56] LABS: Glucose,Whole Blood 117 mg/dL (75-99)
[2021-10-05 05:58] LABS: HGB 8.1 gm/dL (11.4-16.0); Hypochromasia Slight; MCH 32.4 pg (25.0-35.0); MCHC 32.4 g/dL (31.0-37.0); MCV 99.9 fL (80.0-100.0); Mean Platelet Volume 8.4; Platelet Count 273 k/uL (150-450); RDW 14.1 % (11.5-15.5); WBC 7.1 k/uL (3.8-10.6)
[2021-10-05 06:32] LABS: African American GFR (CKD) >90 (>60 ml/min/1.73 sqM); Anion Gap 4 mmol/L; Blood Urea Nitrogen 15 mg/dL (7-17); Calcium 8.4 mg/dL (8.4-10.2); Carbon Dioxide 29 mmol/L (22-30); Chloride 106 mmol/L (98-107); Glucose 117 mg/dL (74-99); Non-African American GFR(CKD) >90 (>60 ml/min/1.73 sqM); Potassium 3.5 mmol/L (3.5-5.1); Sodium 139 mmol/L (137-145)
[2021-10-05] MEDS: levETIRAcetam IV 1,500 MG in SALINE 1 100ML.BAG IVPB SCH ×2 (07:58→19:50)
[2021-10-05] MEDS: POTASSIUM BICARBONATE/CIT AC 20 MEQ TABLET.EFF NG-TUBE SCH ×2 (07:58→08:53)
[2021-10-05] MEDS: AMIODARONE 200 MG TAB PO SCH (07:59)
[2021-10-05] MEDS: CHLORHEXIDINE GLUCONATE 15 ML CUP MUCOUS MEM SCH ×2 (07:59→19:50)
[2021-10-05] MEDS: PANTOPRAZOLE 40 MG/10 ML VIAL IV SCH (07:59)
[2021-10-05] MEDS: QUEtiapine 25 MG TAB PO SCH ×2 (07:59→19:50)
[2021-10-05] MEDS: METOPROLOL TARTRATE 25 MG TAB PO SCH ×2 (07:59→19:50)
[2021-10-05] MEDS: APIXABAN 5 MG TAB PO SCH ×2 (07:59→19:50)
[2021-10-05] MEDS: CHOLECALCIFEROL 125 MCG (5000 IU) TABLET PO SCH (08:00)
[2021-10-05] MEDS: carBAMazepine 200 MG TAB PO SCH ×3 (08:02→19:49)
[2021-10-05] MEDS: VANCOMYCIN 1,000 MG in SODIUM CHLORIDE 0.9% 250 ML IVPB SCH ×2 (08:02→19:50)
--- NOTE | 2021-10-05 10:35 | P.PN ---
Subjective Progress Note Date: 10/05/21 CHIEF COMPLAINT: COVID-19 pneumonia HISTORY OF PRESENT ILLNESS: Patient remains in the ICU and is on mechanical ventilation. Patient is status post tracheostomy and PEG tube placement on 09/23/21. Patient is tolerating tube feedings at 35ml/hr. patient is awake and following simple commands but is weak. Consult in place for select specialty for possible transfer to select specialty for further weaning. PHYSICAL EXAM: VITAL SIGNS: Reviewed. GENERAL:no acute distress. HEENT: Moist buccal mucosa. Head is atraumatic, normocephalic. Tracheostomy site clean and intact. ABDOMEN: Soft. Nondistended. PEG tube site clean dry and intact NEUROLOGIC: awake ASSESSMENT: 1. Acute hypoxic respiratory failure secondary to COVID-19 pneumonia requiring mechanical ventilation 2. Severe protein calorie malnutrition PLAN: -Continue tube feedings -Continue ICU management -Continue supportive care -Discharge planning and process to select specialty Physician Strategic Communications Manager note has been reviewed by physician. Signing provider agrees with the documented findings, assessment, and plan of care. Objective - Vital Signs Vital signs: Vital Signs Temp 98.7 F 10/05/21 08:00 Pulse 98 10/05/21 09:00 Resp 20 10/05/21 09:00 BP 151/86 10/05/21 09:00 Pulse Ox 97 10/05/21 09:00 Intake & Output 10/04/21 10/05/21 10/05/21 18:59 06:59 18:59 Intake Total 1830 1140 285 Output Total 1170 585 220 Balance 660 555 65 Weight 58.3 kg Intake: IV 1000 720 180 .9NS 20 520 720 180 Anidulafungin 100 mg In 130 Sodium Chloride 0.9% 100 ml @ 84 mls/hr IVPB DAILY @1700 [facility] Rx#:[id number] Sodium Chloride 0.45% 1, 250 000 ml @ 50 mls/hr IV . Q20H [facility] Rx#:[id number] levETIRAcetam IV 1,500 mg 100 In Saline 1 100ml.bag @ 400 mls/hr IVPB Q12HR [facility] Rx#:[id number] Intake, IV Titration 500 0 Amount Clevidipine Butyrate 25 0 mg In Empty Bag 1 bag @ 1 MG/HR 2 mls/hr IV .Q24H [facility] Rx#:[id number] Vancomycin 1,000 mg In 500 Sodium Chloride 0.9% 250 ml @ 125 mls/hr IVPB Q8H [facility] Rx#:[id number] Tube Feeding 330 420 105 Output: Urine 1170 585 220 Other: Voiding Method Indwelling Catheter Indwelling Catheter Indwelling Catheter ABP, PAP, CO, CI - Last Documented Arterial Blood Pressure 123/58 - Labs CBC & Chem 7: 10/05/21 05:33 10/05/21 05:33 Labs: Abnormal Lab Results - Last 24 Hours (Table) 10/04/21 10/04/21 10/04/21 Range/Units 12:10 17:31 23:52 RBC (3.80-5.40) m/uL Hgb (11.4-16.0) gm/dL Hct (34.0-46.0) % ABG pH (7.35-7.45) ABG HCO3 (21-25) mmol/L ABG Total CO2 (19-24) mmol/L ABG O2 Saturation (94-97) % Creatinine (0.52-1.04) mg/dL Glucose (74-99) mg/dL POC Glucose (mg/dL) 113 H 125 H 122 H (75-99) mg/dL 10/05/21 10/05/21 10/05/21 Range/Units 05:15 05:33 05:33 RBC 2.50 L (3.80-5.40) m/uL Hgb 8.1 L (11.4-16.0) gm/dL Hct 25.0 L (34.0-46.0) % ABG pH 7.50 H (7.35-7.45) ABG HCO3 30 H (21-25) mmol/L ABG Total CO2 31 H (19-24) mmol/L ABG O2 Saturation 97.9 H (94-97) % Creatinine 0.39 L (0.52-1.04) mg/dL Glucose 117 H (74-99) mg/dL POC Glucose (mg/dL) (75-99) mg/dL 10/05/21 Range/Units 05:54 RBC (3.80-5.40) m/uL Hgb (11.4-16.0) gm/dL Hct (34.0-46.0) % ABG pH (7.35-7.45) ABG HCO3 (21-25) mmol/L ABG Total CO2 (19-24) mmol/L ABG O2 Saturation (94-97) % Creatinine (0.52-1.04) mg/dL Glucose (74-99) mg/dL POC Glucose (mg/dL) 117 H (75-99) mg/dL Microbiology - Last 24 Hours (Table) 10/01/21 05:56 Blood Culture - Preliminary Blood No Growth after 96 hours 10/03/21 18:31 Blood Culture - Preliminary Blood No Growth after 24 hours
[2021-10-05 11:49] LABS: Glucose,Whole Blood 112 mg/dL (75-99)
--- NOTE | 2021-10-05 13:50 | P.PN ---
Subjective Progress Note Date: 10/05/21 Principal diagnosis: Acute COVID-19 pneumonia with acute hypoxic respiratory failure and altered mental status. 10/04/2021, the patient is being seen in follow-up in the intensive care unit. This morning, the patient remains off sedation. She is awake and alert. She remains on a pressure control mode of mechanical ventilation. She is at the rate of 16 with a pressure control of 18 with an FiO2 of 40% with a PEEP of 5. No blood gases available from today. Chest x-ray showing stable findings with a persistent left lower lobe effusion/consolidation. The patient started spiking temperature as of yesterday. T-max was at 11.9. She is still febrile with a temperature 100.1. I was not informed of this changes and the focal went right away to infectious disease. The patient was given 2 sets of blood cultures. Noted the patient was already receiving a combination of vancomycin and Eraxis. That is his sputum culture is still showing Radha. The patient has a PICC line in her right upper extremity. The exit site is dry clean and intact. No diarrhea. No other clear source of infection at this point in time. Infections on the case. Pro-calcitonin level will be checked. She remains hemodynamically stable. She is on no pressors. Cardiac rhythm is sinus with frequent PACs and PVCs. Fluid balance has been +1.2 L over the past 24 hours. Note that the patient's weaning parameters of the persistently weak. Nevertheless, she was able to tolerate a full total of 4 hours a pressure support mode of mechanical ventilation with a pressure support of 15 and a PEEP of 5 Reevaluated today on 10/05/2021, patient remains in the ICU, intubated, mechanically ventilated, she is extremely weak, but awake, follows all instructions, she is on pressure control mode of mechanical ventilation, with a pressure control of 16, inspiratory time of 0.9, FiO2 40%, PEEP of 5, her peak airway pressure is 25 plateau pressure is 13. ABG today showed a pO2 of 95 pCO2 of 38 pH of 7.50 however the patient is noted to be pulling less and less tidal volume, hence I increased her pressure control to 22, and she seems to be much better with a tidal volume up to 350 and sometimes 400s range. Patient remains on tube feeding at 35 mL/h using vital AF. Her IV fluid is 0.9 normal saline at 50 mL per hour. Patient is not requiring any pressors, she is not on any sedation, and I am empty to consider the patient for trial of pressure support and CPAP if possible. Again the patient is generally weak, but will give her trials of weaning hopefully beginning tomorrow. CBC today is relatively normal hemoglobin is 8.1. Electrolytes are normal renal profile is normal chest x-ray yesterday showed chronic emphysematous changes, chronic left basilar opacity demonstrated. And no acute change otherwise Objective - Vital Signs Vital signs: Vital Signs Temp 99.1 F 10/05/21 12:00 Pulse 89 10/05/21 13:00 Resp 16 10/05/21 13:00 BP 103/63 10/05/21 13:00 Pulse Ox 97 10/05/21 13:00 Intake & Output 10/04/21 10/05/21 10/05/21 18:59 06:59 18:59 Intake Total 1830 1140 570 Output Total 1170 585 445 Balance 660 555 125 Weight 58.3 kg 58.3 kg Intake: IV 1000 720 360 .9NS 20 520 720 360 Anidulafungin 100 mg In 130 Sodium Chloride 0.9% 100 ml @ 84 mls/hr IVPB DAILY @1700 [facility] Rx#:[id number] Sodium Chloride 0.45% 1, 250 000 ml @ 50 mls/hr IV . Q20H [facility] Rx#:[id number] levETIRAcetam IV 1,500 mg 100 In Saline 1 100ml.bag @ 400 mls/hr IVPB Q12HR [facility] Rx#:[id number] Intake, IV Titration 500 0 Amount Clevidipine Butyrate 25 0 mg In Empty Bag 1 bag @ 1 MG/HR 2 mls/hr IV .Q24H [facility] Rx#:[id number] Vancomycin 1,000 mg In 500 Sodium Chloride 0.9% 250 ml @ 125 mls/hr IVPB Q8H [facility] Rx#:[id number] Tube Feeding 330 420 210 Output: Urine 1170 585 445 Other: Voiding Method Indwelling Catheter Indwelling Catheter Indwelling Catheter ABP, PAP, CO, CI - Last Documented Arterial Blood Pressure 123/58 - Exam Physical Exam: Revealed a 51-year-old female intubated, mechanically ventilated, she has a tracheostomy, and she has a PEG tube. Patient is awake, opens eyes, and follows instructions, but she generally weak. Head: Atraumatic, normocephalic, tracheostomy tube is in place. HEENT:[Neck is supple.] [No neck masses.] [No thyromegaly.] [No JVD.] Chest: [Symmetrical chest expansion fine crackles at the bases. No rhonchi and no wheezes. Some squeaking sound intermittently noted bilaterally. Psychiatric: Normal mood, normal affect, follows instructions.] Cardiac Exam: [Normal S1 and S2, no S3 gallop, no murmur.] Abdomen: [Soft, nontender, no megaly, no rebound, no guarding, normal bowel sounds.] PEG tube is intact. Extremities: [No clubbing, no edema, no cyanosis.] Skin: Patient has chronic coccygeal ulceration/pressure ulcer. Neurological Exam: Generally weak, opens eyes, follows instructions, - Labs CBC & Chem 7: 10/05/21 05:33 10/05/21 05:33 Labs: Abnormal Lab Results - Last 24 Hours (Table) 10/04/21 10/04/21 10/05/21 Range/Units 17:31 23:52 05:15 RBC (3.80-5.40) m/uL Hgb (11.4-16.0) gm/dL Hct (34.0-46.0) % ABG pH 7.50 H (7.35-7.45) ABG HCO3 30 H (21-25) mmol/L ABG Total CO2 31 H (19-24) mmol/L ABG O2 Saturation 97.9 H (94-97) % Creatinine (0.52-1.04) mg/dL Glucose (74-99) mg/dL POC Glucose (mg/dL) 125 H 122 H (75-99) mg/dL 10/05/21 10/05/21 10/05/21 Range/Units 05:33 05:33 05:54 RBC 2.50 L (3.80-5.40) m/uL Hgb 8.1 L (11.4-16.0) gm/dL Hct 25.0 L (34.0-46.0) % ABG pH (7.35-7.45) ABG HCO3 (21-25) mmol/L ABG Total CO2 (19-24) mmol/L ABG O2 Saturation (94-97) % Creatinine 0.39 L (0.52-1.04) mg/dL Glucose 117 H (74-99) mg/dL POC Glucose (mg/dL) 117 H (75-99) mg/dL 10/05/21 Range/Units 11:47 RBC (3.80-5.40) m/uL Hgb (11.4-16.0) gm/dL Hct (34.0-46.0) % ABG pH (7.35-7.45) ABG HCO3 (21-25) mmol/L ABG Total CO2 (19-24) mmol/L ABG O2 Saturation (94-97) % Creatinine (0.52-1.04) mg/dL Glucose (74-99) mg/dL POC Glucose (mg/dL) 112 H (75-99) mg/dL Microbiology - Last 24 Hours (Table) 10/01/21 05:56 Blood Culture - Preliminary Blood No Growth after 96 hours 10/03/21 18:31 Blood Culture - Preliminary Blood No Growth after 24 hours Assessment and Plan Assessment: Impression: Acute hypoxic respiratory failure secondary to COVID-19 pneumonia, intubated on 09/11/2021, status post tracheostomy and PEG tube placement on 09/23, presently on pressure control mode of mechanical ventilation, no weaning trials have been made, I will start weaning trials possibly later today or tomorrow. Altered mental status, acute toxic metabolic encephalopathy. No acute CVA noted on brain CT. Acute COVID-19 pneumonia History of seizure activity. Remains on seizure medications including Keppra and Tegretol. Previous history of pulmonary embolism, on long-term treatment with Eliquis. Paroxysmal atrial fibrillation Cardiomyopathy and LV dysfunction with ejection fraction of 30-35%. History of pacemaker implantation. 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 coli urinary tract infection History of psoriasis Sacral /coccygeal decubitus ulcer Recommendation: Continue ventilatory support. Pressure control mode of mechanical ventilation, increase the pressure to 22. Will start possibly weaning trials later today or tomorrow. I will possibly try pressure support mode of mechanical ventilation with CPAP. Continue supportive care measures Continue Lovenox, for DVT prophylaxis. Continue Keppra And Tegretol. continue enteral feeding , via PEG tube. Continue physical therapy. We'll start addressing weaning trials if possible later today and in the morning. Patient is not requiring any sedation at this point. continue to monitor in the ICU Critical care time is over 30 minutes Time with Patient: Greater than 30
--- NOTE | 2021-10-05 14:12 | P.PN ---
Subjective Progress Note Date: 10/05/21 This is a pleasant 51 years old female with past medical history of Coronary Artery Disease, Heart Failure, CVA/TIA, Pulmonary Embolus (PE), Seizure Disorder, Last seizure 2009, CVA 2007 with L sided weakness arm and leg and has L foot drop, TIA 2018, cardiomyopathy, R PE and pneumothorax/pneumonia following leg fracture in 1994, gestational diabetes with all pregnancies , bilateral glaucoma with surgery, psoriasis in the past, UTIs. She is a status post Pacemaker, history of Bilateral eye surgery for glaucoma, Anxiety, Depression, Current every day smoker Patient presents because of altered mental status. Information was limited from the patient. It was obtained from the chart and medical staff. Also as per family patient was able to go to the bathroom, was more lethargic and tired over the last day. While in the emergency room focal mild seizure is noticed On admission patient had and fever of 101. She is tachypneic at 26-40, tachycardic 110-140, also she is hypoxic saturating 72% on room air Labs showing WBC of 10.5, hemoglobin of 16.3, platelet count of 197. INR 1.7. Sodium 164, creatinine 1.7, lactic acid elevated 4.6. Liver enzymes elevated with AST 202 and ALT 81. Bilirubin is normal at 1.3. Urine analysis is highly suspicious of infection Urine drug screen is negative Cash versus positive Chest x-ray showing left perihilar and left lower lobe area of infiltrate and small effusion correlates for pneumonia CT of the brain without contrast showing no intracranial hemorrhage, evidence of remote ischemic change. However there is vague low attenuation near the left thalamus and left cerebral peduncle. Acute ischemia in the differential diagnosis. Recommend stat MRI of brain with MRSA [place] of [place] as clinically warranted. In the emergency room patient was started on aztreonam and IV vancomycin, Keppra and heparin drip 09/11/2021 Patient today was still in the ICU, she was very weak and obtunded, she will wake up to certain stabilized and moans, she does not follow commands she cannot, gait she moved both extremities symmetrically. R on she had collapse of her left lung cancer and she has to be intubated and repeat chest x-ray showing better. A of the left lung. She is tachypneic with a breathing rate 22, no more fever since yesterday. Her sodium improved down to 144 and she was started on normal saline, creatinine 1.1, Ejection fraction showed 30-35% which is slice worsened from 06/2021 where it was 35-40% She remains on dexamethasone, IV vancomycin and clindamycin, heparin drip, Keppra and normal saline at 75 mL/h 09/12/2021 Patient with respiratory failures and she was intubated and placed on mechanical ventilation with pulmonary/critical care team following her mostly. There is no more seizure-like activity noticed. She still tachypneic with a breathing rate of 32 blood pressure 100/70, she is needing FiO2 of 80% and PEEP of 20. She has no more fevers since admission. Urine culture is growing gram-negative bacilli. Sodium is 146, WBCs is increased at 16.5 K. PH showing acidosis with 7.1 and elevated pCO2 at 83. Chest x-ray showing left sided opacities with near full. A of the left lung. Patient kept on antibiotics in the form of clindamycin and Levaquin and fluconazole. Also she remains on dexamethasone, and so a heparin to Lovenox. Also continued on seizure medication 1500 mg twice a day and IV fluids per pulmonary team. Neurology team on the case 09/13/2021 Patient remains intubated and sedated with pulmonary/critical care team following her closely. Her PEEP is lower today to 18. She remains on FiO2 of 50%. She is tachypneic at 32 about blood pressure is controlled. Her inflammatory markers are increased to LDH of 1009 and CRP of 25.1. Bicarb is elevated at 31 WBC is 17.7, sodium improved to 142. Creatinine improved to 0.6. Chest x-ray showed improving left lung infiltrate. PH is improved slightly 7.2 with pCO2 is slightly better at 79. Urine culture is growing E. coli which is sensitive to the antibiotics. Currently patient is covered with clindamycin, Levaquin and fluconazole. Also she is on dexamethasone 6 mg, Keppra 1500 mg and half-normal saline at 50 mL per hour Anticoagulation switch from heparin drip and to Lovenox 09/14/2021 Patient still intubated and sedated on mechanical ventilation with pulmonary/critical care team following her closely and just her vent setting. Today her FiO2 of 55%, and she is tachypneic at 33 breath per minute. Labs showing stable findings with sodium 141, creatinine 0.8, liver enzymes slightly elevated, LDH slightly down at 797 and CRP 2-3.2. Same leukocytosis at 14.7. Her pH is 7.2 and carbon dioxide is 82. D-dimer mildly elevated at 0.9, just x-ray showing bilateral infiltrate with no significant change from prior. She remains on the same antibiotic of clindamycin, Levaquin, dexamethasone, Keppra 1500 mg and half normal saline at 50 mL/h 09/15/2021 Patient in the ICU intubated and sedated, with pulmonary/critical care team following closely. FiO2 still 50%, hemodynamically showing both staple blood pressure 101/40, patient is tachypneic more than 30 per minutes. PEEP is lower. wbc of 11.3, hemoglobin 9.4, sodium 140, creatinine 0.8. chest x-ray: mild worsening infiltrate in the left lobe. patient continued with the same treatment of clindamycin, levaquin, dexamethasone, keppra and she received 1 l of normal saline today. 09/16/2021 Patient is seen and evaluated and follow-up continues to be closely monitored in the ICU. Multiple medical consultations following including infectious disease, pulmonary grouter helper, and neurology. Patient continues on mechanical vent with an FiO2 of 50% and PEEP is 10. Weaning is being continued and PEEP is being titrated down to 8. Patient continues with sedation holidays and very minimal propofol and patient is now off Nimbex and very minimal stimulus noted. Patient response to painful stimulus minimally. Plan is for possible CT of the brain repeat this afternoon. Patient also being closely monitored for continued seizures of which she does have a past medical history of. Patient is also Covid positive and infectious disease is following and patient is maintained on clindamycin along with Levaquin. Chest x-ray today shows correlate for left lower lobe pneumonia versus atelectasis with possible associated effusion. 09/17/2021 Patient is seen in follow-up this morning closely monitored in the ICU. Neurology also following and patient is maintained on IV Keppra. Patient also continues on IV antibiotics in the form of aztreonam and clindamycin with infectious disease following. Patient urine culture showing E. coli. Chest x- ray today shows chronic emphysematous changes with left basilar acute infiltrate and/or atelectasis and likely small left pleural effusion all redemonstrated with no significant change from previous day. Neurology following And okay to resume anticoagulant as there is no evidence of new intracranial process or hemorrhage. Patient is off sedation and continues to be unresponsive. 09/18/2021 Patient is evaluated again this morning and continues to be in the ICU on mechanical vent and being closely monitored. FiO2 is at 45% and PEEP is 8. Patient continues to be off sedation with no response for over 24 hours. Neurology following as well and have discussed overall prognosis with family and family discussing with other family members about CODE STATUS and treatment plan moving forward. Infectious disease also following and patient is maintained on IV Levaquin along with clindamycin and aztreonam and will continue. Urine cultures finalized showing E. coli and sputum culture preliminary is pending at this time. 09/19/2020 Patient evaluated today in the ICU on mechanical ventilation. Fi02 at 45% with a PEEP of 8. Propofol infusing, Nimbex and Levophed are currently on hold. Pr ecedex discontinued. There has been no response, and mental status is not improving. Still no response to verbal stimuli. Patient is being followed closely by neurology for this and is on IV keppra and tegretol. EEG consistant with toxic metabolic encepholapthy. Repeat chest xray today shows similar opacities given patient rotation. Stable support tubes. Mild pulmonary vascular congestion correlate with serum BNP. Blood cultures negative, pending finalized, sputum negative so far. Labs reviewed today: WBC 9.2, hgb 10.3, sodium 138, potassium 3.8, BUN 33, Cr 0.76, glucose in the 110's, calcium 7.9, AST 250, ALT 78, Albumin 2.3. Vitals reviewed: Temp 97.4, HR 126, RR 44, Blood pressure 113/80, 96% oxygen saturation on mechanical ventilation. 09/20/2021 Patient evaluated in ICU on mechanical ventilation with an Fi02 of 45%, PEEP of 12. Chest xray today shows left lower lobe atelectasis versus pneumonia with similar findings as previous. BNP yesterday 12,500, however xray reviewed and d oes not appear to be showing heart failure. She is in negative fluid balance. Status was addressed with family by neurology who is awaiting a phone call back. White count 12.8, RBC 3.5, sodium 137 potassium 3.8, chloride 101, CO2 33, BUN 35, creatinine 0.68, blood sugars in the 120s, AST 424, ALT 115, alk phos 63. Running temps today 100.8, heart rate 123, respiratory rate 36, blood pressure 95/65, oxygen saturation of 93-94%. Blood pressures are on the softer side 88/55. Current infusions include propofol which has been resumed as patient has not shown any signs of neurological improvement while on a propofol break. 09/21/2021 Patient is seen in follow up today and continues to be on mechanical vent with an FI02 of 45% with a peep of 8 and multiple medical consultations following. Ch est xray similar from previous with copd and continued focal basilar left lower lobe retrocardiac consolidation or atelectasis. Patient is on propofol and general surgery has been consulted for peg and trach placement. Plan for surgery is tomorrow. 09/22/2021 Patient is seen and evaluated in follow-up this morning continues on mechanical ventilation with a PEEP of 8 and FiO2 is 45%. General surgery following an plan is for PEG and trach placement today due to prolonged mechanical ventilation and no improvements or weaning from the vent. Patient continues on tube feeding along with Lovenox which is currently on hold for the surgical procedure. Patient's chest x-ray today shows diffuse bilateral infiltrates that are stable with no pneumothorax or pleural effusion noted. Patient also had gallbladder ultrasound secondary to elevated liver functions and shows hepatomegaly otherwise unremarkable. Patient is continued on antifungal's along with vancomycin and infectious disease following closely. Sputum cultures preliminary showing Radha glabrata and Staphylococcus aureus and most recent blood cultures have been negative. 09/23/2021 Patient is seen in follow-up this morning and patient was unable to receive PEG and trach with general surgery following yesterday and plan is for today. Patient continues on mechanical vent and FiO2 is 45% with a PEEP of 8. Lovenox and tube feeding currently on hold. Chest xray reviewed and no acute changes from yesterday. Continues to be unresponsive. Prognosis remains poor. 09/24/2021 Patient is seen this morning status post PEG and trach placement and is resuming tube feedings with general surgery following. Patient continues on mechanical vent with an FiO2 of 40% and PEEP is 8. Per nursing staff working on weaning sedation and assessing neuro status. Continues with being obtunded and no purposeful movements noted. Chest xray shows COPD with improvement in previous left pleural effusion with mild patchy infiltrates/retrocardiac atelectasis noted. 09/25/2021 Patient is seen and evaluated today continues to be in the ICU on mechanical ventilation and continues on sedation with attempts at weaning. FI02 is 40% and peep of 8. Multiple medical consultations following. Plan is for repeat ct of the brain sometime this afternoon. Per nursing staff patient is tolerating tube feeds. Chest xray today shows suboptimal study due to positioning and unable to exclude some worsening atelectasis or infiltrate. 09/26/2021 Patient is in the MICU. Status post tracheostomy and PEG tube placement on 09/23/2021 remains on mechanical ventilator. FiO2 40% and PEEP of 8. Patient remains unresponsive and does not follow simple commands. Repeat CT done on 09/25/2021 showed findings consistent with cerebrovascular infarction bilaterally. May be indicative of otitis media bilaterally. No acute brain abnormality evident. Patient is being continued antibiotics in the form of Levaquin and Eraxis per bacterial pneumonia and sputum cultures growing Radha and staph aureus. Laboratory data showed WBC 8.7 hemoglobin 8.8 and platelets 330 Sodium 138 potassium 3.6 chloride 102 bicarb is 34 BUN 2020 creatinine 0.38 and calcium 8.4 Patient is being continued antibiotics and antiepileptic medications. Pulmonary, neurology and ID is on board. 09/27/2021 Patient is in the MICU. Status post tracheostomy and PEG tube placement and mechanical ventilator. Patient is off sedation. Currently on assist control with tidal volume 325 FiO2 35% and PEEP of 8. Patient remains obtunded and does not follow simple commands. Chest x-ray showed improvement in the opacity in the obscuring the left hemidiaphragm on the prior study. Most likely represents decreasing small pleural effusion Laboratory showed WBC 8.3 hemoglobin 9.5 platelets 102 sodium 138 potassium 4.0 chloride 103 bicarb is 31 BUN 2020 creatinine 0.45 calcium 8.8 patient is being current on antibiotics in the form of Levaquin and Eraxis. Decadron has been discontinued. 09/28/2021 Patient continues to be closely monitored in the ICU with multiple medical consultations following. Current FiO2 is 35% and PEEP is 5. She is off sedation. Per nursing staff, patient did squeeze her right hand although unresponsive on exam. Patient chest xray shows chronic emphysematous change with left basilar acute infiltrate and or atelectasis and likely small left pleural effusion are all redemonstrated with no significant change from one day earlier. Patient continues on tube feeding and tolerating. Social work following and working on placement. Peer to Peer for insurance required. Patient also continues on Levaquin and antifungal for MSSA and radha glabrata in the sputum. Continue local wound care. 09/29/2021 Patient is seen and evaluated this morning continues to be closely monitored in the ICU. Patient remains off sedation and continues on mechanical ventilation via tracheostomy with an FiO2 of 35% and PEEP is 5. Pulmonary grouter helper following closely and continuing to wean and evaluating weaning parameters with possible attempts at trach collar. Patient is extremely lethargic although opening eyes and responding to commands appropriately and nodding yes and no appropriately to questions and commands. Patient continues to be flaccid on the left side although is able to squeeze writers hands this morning on the right and follow commands. Patient continues on anidulafungin along with IV Levaquin with infectious disease following closely. Patient tolerating tube feedings and will continue. 09/30/2021 Patient is seen today continues to be closely monitored in the ICU. Patient has been off sedation and currently maintained on mechanical ventilation via tracheostomy and PEEP is currently 5 with an FiO2 of 30%. Chest x-ray today shows COPD and continued small left pleural effusion with left basilar retrocardiac atelectasis and/or consolidation. Neurology to reevaluate. Patient was on cleviprex and being weaned. 10/01/2021 Patient is seen and evaluated this morning and per nursing staff, patient blood pressure has been elevated and on cleviprex. Patient is off sedation. Patient continued on mechanical ventilation via trach and FI02 is 30% with a peep of 5. Patient having some low grade temps and was off antibiotics and ID following closely and patient being started on vancomycin. Chest xray today shows chronic emphysematous change with left basilar opacity redemonstrated with no significant change from previous. 10/02/2021 Patient is able to open her eyes with verbal stimuli. Able to move her upper extremities. But patient is unable to move her lower extremities. Feels extremely weak. Able to follow simple commands. Patient is mechanical ventilator via trach tube. Chest x-ray showed unchanged with atelectasis of the left lung base. Patient remains antibiotics above vancomycin. Sputum cultures are growing staph aureus. Patient is on anticoagulation with Eliquis.. Patient is on amiodarone and also on antiepileptic medications. Laboratory data showed WBC 6.4 hemoglobin 8.9 and platelets 219 sodium 136 p otassium 3.5 chloride 104 bicarb is 25 BUN 21 creatinine 0.34 and calcium 8.3 Neurology and pulmonary is on board. 10/03/2021 Patient is awake and alert. Able to move her upper extremities. Feels gen eralized weakness and remains on mechanical ventilator. Currently on pressure support. With PEEP of 5. Patient has been afebrile. Currently on antibiotics in the form of vancomycin. Chest x-ray showed no acute abnormalities. Ongoing left lower lobe atelectasis. Patient is tolerating tube feeding. Laboratory showed WBC 6.8 hemoglobin 8.3 and platelets 201 sodium 135 potassium 3.5 chloride 103 bicarb is 26 BUN 69 creatinine 0.38 and blood sugar is 102 calcium 8.4 Patient is being continued antibiotics in the form of vancomycin. Cardiogram Eliquis and multivitamins. Current antiblood medication. Patient remains sinus rhythm. PVCs noted. 10/04/2021 Patient remains on mechanical ventilator via tracheostomy tube. Pressure control with FiO2 40% and PEEP of 5. Patient is otherwise awake alert and able to follow simple commands. Continues to have extreme weakness. Able to move her upper extremities but not lower extremities. Chest x-ray showed persistent left lower lobe effusion/consolidation. Patient is being continued on antibiotics in the form of vancomycin. Sputum cultures growing Radha species. Not albicans. Patient remains on antibiotics. Also on Eraxis. T-max 100.1. Patient is sinus rhythm. Continue anticoagulation with Eliquis and rate control with metoprolol and also on oral amiodarone. Laboratory data showed WBC 6.1 hemoglobin 7.8 and platelets 239 sodium 133 potassium 3.6 chloride 100 bicarb is 28 BUN 19 and creatinine 0.4 and blood sugar is 111 calcium 8.3 and vancomycin trough is 37.1. Pulmonary, ID and neurology is on board. 10/05/2021 Patient is seen and evaluated today continues to be in the ICU being closely monitored. Patient continues on and mechanical ventilation via tracheostomy and FiO2 is 40% with a PEEP of 5. No acute overnight issues per nursing staff. Patient is off sedation and continues on antiepileptics in the form of Keppra. Patient also continues on IV vancomycin along with anidulafungin with infectious disease following closely and also continue with local wound care. Patient continues with intermittent low-grade temps with concern for possible PICC line infection and most recent blood cultures have been negative. No chest x-ray from today. Review of systems: unable to obtain as patient is lethargic Labs: WBC is 7.1, hemoglobin is 8.1, platelets are 273, sodium is 139, potassium 3.5, BUN 15, creatinine 0.39, calcium 8.4. Active Medications Acetaminophen (Acetaminophen Tab 325 Mg Tab) 650 mg PO Q6HR PRN PRN Reason: Fever and/ or Pain Last Admin: 10/04/21 08:02 Dose: 650 mg Documented by: Amiodarone HCl (Amiodarone 200 Mg Tab) 200 mg PO DAILY [facility] Last Admin: 10/05/21 07:59 Dose: 200 mg Documented by: Apixaban (Apixaban 5 Mg Tab) 5 mg PO BID [facility]; Protocol Last Admin: 10/05/21 07:59 Dose: 5 mg Documented by: Artificial Tears (Artificial Tears-Hypromellose Drops 15 Ml Btl) 1 drops BOTH EYES QID PRN PRN Reason: Dry Eye(s) Last Admin: 09/16/21 08:58 Dose: 1 drops Documented by: Carbamazepine (Carbamazepine 200 Mg Tab) 200 mg PO TID [facility] Last Admin: 10/05/21 08:02 Dose: 200 mg Documented by: Chlorhexidine Gluconate (Chlorhexidine Gluconate 15 Ml Cup) 15 ml MUCOUS MEM BID [facility] Last Admin: 10/05/21 07:59 Dose: 15 ml Documented by: Cholecalciferol (Cholecalciferol 125 Mcg (5000 Iu) Tablet) 125 mcg PO DAILY [facility] Last Admin: 10/05/21 08:00 Dose: 125 mcg Documented by: Hydromorphone HCl (Hydromorphone 1 Mg/Ml 1 Ml Syringe) 1 mg IVP Q2H PRN PRN Reason: Pain Last Admin: 10/03/21 20:45 Dose: 1 mg Documented by: Levetiracetam 1,500 mg/ IV (Solution) 100 mls @ 400 mls/hr IVPB Q12HR [facility] Last Admin: 10/05/21 07:58 Dose: 400 mls/hr Documented by: Anidulafungin 100 mg/ Sodium (Chloride) 130 mls @ 84 mls/hr IVPB DAILY@1700 [facility] Last Admin: 10/04/21 16:07 Dose: 84 mls/hr Documented by: Propofol 1,000 mg/ IV Solution 100 mls @ 0 mls/hr IV .Q0M [facility]; Protocol Last Titration: 09/24/21 11:28 Dose: 0 mcg/kg/min, 0 mls/hr Documented by: Clevidipine 25 mg/ IV Solution 50 mls @ 2 mls/hr IV .Q24H [facility]; Protocol Last Titration: 10/05/21 09:13 Dose: 0 mg/hr, 0 mls/hr Documented by: Vancomycin HCl 1,000 mg/ (Sodium Chloride) 250 mls @ 125 mls/hr IVPB Q12HR [facility] Last Admin: 10/05/21 08:02 Dose: 125 mls/hr Documented by: Insulin Aspart (Insulin Aspart (Novolog) 100 Unit/Ml Vial) 0 unit SQ Q6H [facility]; Protocol Last Admin: 10/05/21 05:57 Dose: Not Given Documented by: Metoprolol Tartrate (Metoprolol Tartrate 25 Mg Tab) 25 mg PO BID [facility] Last Admin: 10/05/21 07:59 Dose: 25 mg Documented by: Miscellaneous Information (Potassium Replacement Protocol 1 Each Misc) 1 each MISCELLANE DAILY PRN; Protocol PRN Reason: Per Protocol Miscellaneous Information (Magnesium Replacement Protocol 1 Each Misc) 1 each MISCELLANE DAILY PRN; Protocol PRN Reason: Per Protocol Naloxone HCl (Naloxone 0.4 Mg/Ml 1 Ml Vial) 0.2 mg IV Q2M PRN PRN Reason: Opioid Reversal Pantoprazole Sodium (Pantoprazole 40 Mg/10 Ml Vial) 40 mg IV DAILY [facility] Last Admin: 10/05/21 07:59 Dose: 40 mg Documented by: Quetiapine Fumarate (Quetiapine 25 Mg Tab) 25 mg PO BID [facility] Last Admin: 10/05/21 07:59 Dose: 25 mg Documented by: Physical exam: GENERAL: The patient is intubated and off sedation although lethargic today, FiO 2 is 40% and PEEP is 5 HEENT: Pupils are round and equally reacting to light. EOMI. No scleral icterus. No conjunctival pallor. Normocephalic, atraumatic. No pharyngeal erythema. No thyromegaly. CARDIOVASCULAR: S1 and S2 present. No murmurs, rubs, or gallops. PULMONARY: diminished breath sounds bilaterally with coarse rhonchi noted, coughing frequently on exam ABDOMEN: Soft, nontender, nondistended, normoactive bowel sounds. No palpable organomegaly. MUSCULOSKELETAL: No joint swelling or deformity. EXTREMITIES: No cyanosis, clubbing, or pedal edema. NEUROLOGICAL: lethargic although arousable and unable to completely assess as she fatigues easily, remains off sedation, able to follow commands and move right upper extremity and squeeze, left remains flaccid, patient able to move and wiggle bilateral lower extremities on command SKIN: No rashes. no petechiae. Assessment: Altered mental status possibly secondary to metabolic/toxic encephalopathy, ruled out other intracranial lesions, and possibly secondary to seizures, slowly improving Acute hypoxic respiratory failure secondary to COVID-19 pneumonia requiring mechanical ventilation status post peg tube and tracheostomy placement Left lower lobe pneumonia, rule out aspiration pneumonia Acute urinary tract infection, present on admission with culture showing E. coli, adequately treated Sepsis secondary to UTI and pneumonia Breakthrough seizure Bilateral interstitial Covid 19 pneumonia Increased inflammatory markers of covid 19 elevated troponins on admission, most likely type II ischemia secondary to acute kidney injury and possibly secondary to electrolyte abnormalities. Cardiomyopathy with most recent EF of 30-35% Hypernatremia, improved Acute kidney injury, improved Mild elevated liver enzymes History of coronary artery disease History of pulmonary embolism History of seizure disorder, last seizure was in 2009 as per documents History 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 left foot drop History of glaucoma status post surgery Status post permanent pacemaker Nicotine dependence GI prophylaxis DVT prophylaxis Full code Plan: This is a pleasant 51 years old female who presented with altered mental status, pneumonia, UTI, possible stroke although most likely old infarcts noted on CT, seizure and positive for covid pneumonia patient was intubated and continues on mechanical ventilation with a FiO2 of 40% and PEEP is 5. Patient is status post PEG and trach placement recently from prolonged mechanical ventilation. Patient is off sedation and following commands and patient also remains off Cleviprex. Continue with Keppra and neurology following as needed pulmonary and infectious disease following, continue with antifungals, patient continues with having low grade temps and maintained on vancomycin Continue with vitamin and zinc supplements along with Lovenox Overall Prognosis remains extremely guarded Social work following and working on possible LTAC and awaiting appeal. Will continue to monitor closely. Objective - Vital Signs Vital signs: Vital Signs Temp 98.7 F 10/05/21 08:00 Pulse 108 H 10/05/21 08:00 Resp 28 H 10/05/21 08:00 BP 141/69 10/05/21 08:00 Pulse Ox 96 10/05/21 08:00 Intake & Output 10/04/21 10/05/21 10/05/21 18:59 06:59 18:59 Intake Total 1830 1140 95 Output Total 1170 585 120 Balance 660 555 -25 Weight 58.3 kg Intake: IV 1000 720 60 .9NS 20 520 720 60 Anidulafungin 100 mg In 130 Sodium Chloride 0.9% 100 ml @ 84 mls/hr IVPB DAILY @1700 [facility] Rx#:[id number] Sodium Chloride 0.45% 1, 250 000 ml @ 50 mls/hr IV . Q20H [facility] Rx#:[id number] levETIRAcetam IV 1,500 mg 100 In Saline 1 100ml.bag @ 400 mls/hr IVPB Q12HR [facility] Rx#:[id number] Intake, IV Titration 500 Amount Vancomycin 1,000 mg In 500 Sodium Chloride 0.9% 250 ml @ 125 mls/hr IVPB Q8H [facility] Rx#:[id number] Tube Feeding 330 420 35 Output: Urine 1170 585 120 Other: Voiding Method Indwelling Catheter Indwelling Catheter Indwelling Catheter ABP, PAP, CO, CI - Last Documented Arterial Blood Pressure 123/58 - Labs CBC & Chem 7: 10/05/21 05:33 10/05/21 05:33 Labs: Abnormal Lab Results - Last 24 Hours (Table) 10/04/21 10/04/21 10/04/21 Range/Units 09:03 09:03 09:03 RBC 2.45 L (3.80-5.40) m/uL Hgb 7.8 L (11.4-16.0) gm/dL Hct 24.7 L (34.0-46.0) % MCV 100.8 H (80.0-100.0) fL ABG pH (7.35-7.45) ABG HCO3 (21-25) mmol/L ABG Total CO2 (19-24) mmol/L ABG O2 Saturation (94-97) % Sodium 133 L (137-145) mmol/L BUN 19 H (7-17) mg/dL Creatinine 0.40 L (0.52-1.04) mg/dL Glucose 111 H (74-99) mg/dL POC Glucose (mg/dL) (75-99) mg/dL Calcium 8.3 L (8.4-10.2) mg/dL Vancomycin Trough 37.1 H* ug/mL 10/04/21 10/04/21 10/04/21 Range/Units 12:10 17:31 23:52 RBC (3.80-5.40) m/uL Hgb (11.4-16.0) gm/dL Hct (34.0-46.0) % MCV (80.0-100.0) fL ABG pH (7.35-7.45) ABG HCO3 (21-25) mmol/L ABG Total CO2 (19-24) mmol/L ABG O2 Saturation (94-97) % Sodium (137-145) mmol/L BUN (7-17) mg/dL Creatinine (0.52-1.04) mg/dL Glucose (74-99) mg/dL POC Glucose (mg/dL) 113 H 125 H 122 H (75-99) mg/dL Calcium (8.4-10.2) mg/dL Vancomycin Trough ug/mL 10/05/21 10/05/21 10/05/21 Range/Units 05:15 05:33 05:33 RBC 2.50 L (3.80-5.40) m/uL Hgb 8.1 L (11.4-16.0) gm/dL Hct 25.0 L (34.0-46.0) % MCV (80.0-100.0) fL ABG pH 7.50 H (7.35-7.45) ABG HCO3 30 H (21-25) mmol/L ABG Total CO2 31 H (19-24) mmol/L ABG O2 Saturation 97.9 H (94-97) % Sodium (137-145) mmol/L BUN (7-17) mg/dL Creatinine 0.39 L (0.52-1.04) mg/dL Glucose 117 H (74-99) mg/dL POC Glucose (mg/dL) (75-99) mg/dL Calcium (8.4-10.2) mg/dL Vancomycin Trough ug/mL 10/05/21 Range/Units 05:54 RBC (3.80-5.40) m/uL Hgb (11.4-16.0) gm/dL Hct (34.0-46.0) % MCV (80.0-100.0) fL ABG pH (7.35-7.45) ABG HCO3 (21-25) mmol/L ABG Total CO2 (19-24) mmol/L ABG O2 Saturation (94-97) % Sodium (137-145) mmol/L BUN (7-17) mg/dL Creatinine (0.52-1.04) mg/dL Glucose (74-99) mg/dL POC Glucose (mg/dL) 117 H (75-99) mg/dL Calcium (8.4-10.2) mg/dL Vancomycin Trough ug/mL Microbiology - Last 24 Hours (Table) 10/01/21 05:56 Blood Culture - Preliminary Blood No Growth after 96 hours 10/03/21 18:31 Blood Culture - Preliminary Blood No Growth after 24 hours
[2021-10-05] MEDS: CLEVIDIPINE BUTYRATE 25 MG in EMPTY BAG 1 BAG IV SCH (16:28)
[2021-10-05] MEDS: ANIDULAFUNGIN 100 MG in SODIUM CHLORIDE 0.9% 100 ML IVPB SCH (16:38)
[2021-10-05 17:48] LABS: Glucose,Whole Blood 132 mg/dL (75-99)
[2021-10-05 23:55] LABS: Glucose,Whole Blood 111 mg/dL (75-99)
[2021-10-06 05:43] LABS: ABG Base Excess 4.9 mmol/L; ABG HCO3 28 mmol/L (21-25); ABG Oxygen Saturation 98.5 % (94-97); ABG PCO2 36 mmHg (35-45); ABG PO2 105 mmHg (83-108); ABG TCO2 29 mmol/L (19-24); Allen Test Performed? Yes
[2021-10-06 05:43] LABS: Glucose,Whole Blood 112 mg/dL (75-99)
[2021-10-06] MEDS: INSULIN ASPART (NovoLOG) 100 UNIT/ML VIAL SQ SCH ×3 (05:50→18:06)
[2021-10-06 07:32] LABS: HCT 27.7 % (34.0-46.0); HGB 8.4 gm/dL (11.4-16.0); Hypochromasia Slight; MCH 30.6 pg (25.0-35.0); MCHC 30.2 g/dL (31.0-37.0); MCV 101.3 fL (80.0-100.0); Macrocytosis Slight; Mean Platelet Volume 8.1; Platelet Count 320 k/uL (150-450); RBC 2.73 m/uL (3.80-5.40); RDW 14.7 % (11.5-15.5); WBC 5.6 k/uL (3.8-10.6)
[2021-10-06 07:38] LABS: ALT 115 U/L (4-34); AST 91 U/L (14-36); African American GFR (CKD) >90 (>60 ml/min/1.73 sqM); Albumin 2.5 g/dL (3.5-5.0); Alkaline Phosphatase 93 U/L (38-126); Anion Gap 6 mmol/L; Blood Urea Nitrogen 15 mg/dL (7-17); Calcium 8.5 mg/dL (8.4-10.2); Carbon Dioxide 27 mmol/L (22-30); Chloride 106 mmol/L (98-107); Glucose 110 mg/dL (74-99); Non-African American GFR(CKD) >90 (>60 ml/min/1.73 sqM); Potassium 3.6 mmol/L (3.5-5.1); Sodium 139 mmol/L (137-145); Total Bilirubin 0.4 mg/dL (0.2-1.3); Total Protein 5.8 g/dL (6.3-8.2)
[2021-10-06] MEDS ORDERED: POTASSIUM BICARBONATE/CIT AC 20 MEQ TABLET.EFF PO ONE (08:00)
--- NOTE | 2021-10-06 08:03 | XR ---
EXAMINATION TYPE: XR chest 1V portable DATE OF EXAM: 10/06/2021 CLINICAL HISTORY: Difficulty breathing and covid pneumonia progress study. TECHNIQUE: Single AP portable semiupright view of the chest is obtained. COMPARISON: Chest x-ray from 2 days earlier and older studies FINDINGS: Stable tracheostomy tube. Stable right-sided PICC line. Cardiac silhouette size is stable and within normal limits with single lead pacemaker/AICD redemonstr ated. Background Chronic emphysematous change with persistent left basilar opacity silhouetting left hemidiaphragm redemonstrated. Right lung remains clear. Osseous structures are intact. IMPRESSION: Chronic emphysematous change with chronic left basilar opacity redemonstrated. No signifi cant change from most recent x-rays.
[2021-10-06] MEDS: PANTOPRAZOLE 40 MG/10 ML VIAL IV SCH (08:05)
[2021-10-06] MEDS: VANCOMYCIN 1,000 MG in SODIUM CHLORIDE 0.9% 250 ML IVPB SCH ×2 (08:05→20:51)
[2021-10-06] MEDS: CHLORHEXIDINE GLUCONATE 15 ML CUP MUCOUS MEM SCH ×2 (08:05→20:40)
[2021-10-06] MEDS: levETIRAcetam IV 1,500 MG in SALINE 1 100ML.BAG IVPB SCH ×2 (08:05→20:50)
[2021-10-06] MEDS: QUEtiapine 25 MG TAB PO SCH ×2 (08:06→20:50)
[2021-10-06] MEDS: APIXABAN 5 MG TAB PO SCH ×2 (08:06→20:40)
[2021-10-06] MEDS: AMIODARONE 200 MG TAB PO SCH (08:06)
[2021-10-06] MEDS: CHOLECALCIFEROL 125 MCG (5000 IU) TABLET PO SCH (08:06)
[2021-10-06] MEDS: carBAMazepine 200 MG TAB PO SCH ×2 (08:06→15:58)
[2021-10-06] MEDS: METOPROLOL TARTRATE 25 MG TAB PO SCH ×2 (08:06→20:40)
[2021-10-06] MEDS: CLEVIDIPINE BUTYRATE 25 MG in EMPTY BAG 1 BAG IV SCH (11:48)
[2021-10-06 11:54] LABS: Glucose,Whole Blood 125 mg/dL (75-99)
--- NOTE | 2021-10-06 11:55 | P.PN ---
Subjective Progress Note Date: 10/06/21 Principal diagnosis: Acute COVID-19 pneumonia with acute hypoxic respiratory failure and altered mental status. 10/04/2021, the patient is being seen in follow-up in the intensive care unit. This morning, the patient remains off sedation. She is awake and alert. She remains on a pressure control mode of mechanical ventilation. She is at the rate of 16 with a pressure control of 18 with an FiO2 of 40% with a PEEP of 5. No blood gases available from today. Chest x-ray showing stable findings with a persistent left lower lobe effusion/consolidation. The patient started spiking temperature as of yesterday. T-max was at 11.9. She is still febrile with a temperature 100.1. I was not informed of this changes and the focal went right away to infectious disease. The patient was given 2 sets of blood cultures. Noted the patient was already receiving a combination of vancomycin and Eraxis. That is his sputum culture is still showing Radha. The patient has a PICC line in her right upper extremity. The exit site is dry clean and intact. No diarrhea. No other clear source of infection at this point in time. Infections on the case. Pro-calcitonin level will be checked. She remains hemodynamically stable. She is on no pressors. Cardiac rhythm is sinus with frequent PACs and PVCs. Fluid balance has been +1.2 L over the past 24 hours. Note that the patient's weaning parameters of the persistently weak. Nevertheless, she was able to tolerate a full total of 4 hours a pressure support mode of mechanical ventilation with a pressure support of 15 and a PEEP of 5 Reevaluated today on 10/05/2021, patient remains in the ICU, intubated, mechanically ventilated, she is extremely weak, but awake, follows all instructions, she is on pressure control mode of mechanical ventilation, with a pressure control of 16, inspiratory time of 0.9, FiO2 40%, PEEP of 5, her peak airway pressure is 25 plateau pressure is 13. ABG today showed a pO2 of 95 pCO2 of 38 pH of 7.50 however the patient is noted to be pulling less and less tidal volume, hence I increased her pressure control to 22, and she seems to be much better with a tidal volume up to 350 and sometimes 400s range. Patient remains on tube feeding at 35 mL/h using vital AF. Her IV fluid is 0.9 normal saline at 50 mL per hour. Patient is not requiring any pressors, she is not on any sedation, and I am empty to consider the patient for trial of pressure support and CPAP if possible. Again the patient is generally weak, but will give her trials of weaning hopefully beginning tomorrow. CBC today is relatively normal hemoglobin is 8.1. Electrolytes are normal renal profile is normal chest x-ray yesterday showed chronic emphysematous changes, chronic left basilar opacity demonstrated. And no acute change otherwise Reevaluated today on 10/06/2021, remains in the ICU, intubated and mechanically ventilated. Patient was given a trial of pressure support and CPAP yesterday she was on pressure support of 14 and CPAP of 5, tolerated that for about 5-6 hours. Patient was later noted to desaturate, and she was gagging on the tracheostomy tube, becoming a bit agitated, hence she was placed back on the pressure control mode of mechanical ventilation, she is now on pressure control of 22 inspiratory time of 0.9 seconds FiO2 40% PEEP of 5. ABG today showed a pO2 of 105 pCO2 of 36 pH of 7.50. Her peak airway pressure is 28 plateau pressure is 22. Patient is on tube feeding, she is receiving vital AF 42 mL per hour. My plan today is to place the patient back on pressure support of 14 and CPAP, with FiO2 of 40%. Patient is not requiring any sedation, she is not on any major drips. Her IV fluid is 0.9 normal saline at 50 mL per hour. Mentation seems to be much improved compared to baseline, and she continues to do well mentally over the last 24 hours. She is alert, appropriate, follows all simple instructions. Chest x-ray showed chronic changes and chronic left basila r opacity. Not much different compared to the last few days. WBC count is 5.6 hemoglobin is 8.4 electrolytes are normal renal profile is normal ABG showed a pO2 of 105 pCO2 of 36 pH of 7.50. Objective - Vital Signs Vital signs: Vital Signs Temp 97.9 F 10/06/21 08:00 Pulse 109 H 10/06/21 11:00 Resp 20 10/06/21 11:00 BP 149/82 10/06/21 11:00 Pulse Ox 93 L 10/06/21 11:00 Intake & Output 10/05/21 10/06/21 10/06/21 18:59 06:59 18:59 Intake Total 1282 1539 758 Output Total 795 615 450 Balance 487 924 308 Weight 58.3 kg 59.5 kg Intake: IV 820 945 590 .9NS 20 720 720 240 Anidulafungin 100 mg In 100 Sodium Chloride 0.9% 100 ml @ 84 mls/hr IVPB DAILY @1700 [facility] Rx#:[id number] Vancomycin 1,000 mg In 125 250 Sodium Chloride 0.9% 250 ml @ 125 mls/hr IVPB Q12HR [facility] Rx#:[id number] levETIRAcetam IV 1,500 mg 100 100 In Saline 1 100ml.bag @ 400 mls/hr IVPB Q12HR [facility] Rx#:[id number] Intake, IV Titration 0 0 Amount Clevidipine Butyrate 25 0 0 mg In Empty Bag 1 bag @ 1 MG/HR 2 mls/hr IV .Q24H [facility] Rx#:[id number] Tube Feeding 462 504 168 Other 90 Output: Urine 795 615 450 Other: Voiding Method Indwelling Catheter Indwelling Catheter Indwelling Catheter ABP, PAP, CO, CI - Last Documented Arterial Blood Pressure 123/58 - Exam Physical Exam: Revealed a 51-year-old female intubated, mechanically ventilated, via tracheostomy. Head: Atraumatic, normocephalic, tracheostomy tube is in place. HEENT:[Neck is supple.] [No neck masses.] [No thyromegaly.] [No JVD.] Chest: [Fine crackles at the bases. Psychiatric: Normal mood, normal affect, follows instructions.] Cardiac Exam: [Normal S1 and S2, no S3 gallop, no murmur.] Abdomen: [Soft, nontender, no megaly, no rebound, no guarding, normal bowel sounds.] PEG tube is intact. Extremities: [No clubbing, no edema, no cyanosis.] Skin: Patient has chronic coccygeal ulceration/pressure ulcer. Neurological Exam: Generally weak, otherwise unremarkable, no focal deficits. - Labs CBC & Chem 7: 10/06/21 07:13 10/06/21 07:13 Labs: Abnormal Lab Results - Last 24 Hours (Table) 10/05/21 10/05/21 10/05/21 Range/Units 11:47 17:47 23:53 RBC (3.80-5.40) m/uL Hgb (11.4-16.0) gm/dL Hct (34.0-46.0) % MCV (80.0-100.0) fL MCHC (31.0-37.0) g/dL ABG pH (7.35-7.45) ABG HCO3 (21-25) mmol/L ABG Total CO2 (19-24) mmol/L ABG O2 Saturation (94-97) % Creatinine (0.52-1.04) mg/dL Glucose (74-99) mg/dL POC Glucose (mg/dL) 112 H 132 H 111 H (75-99) mg/dL AST (14-36) U/L ALT (4-34) U/L Total Protein (6.3-8.2) g/dL Albumin (3.5-5.0) g/dL 10/06/21 10/06/21 10/06/21 Range/Units 05:40 05:41 07:13 RBC (3.80-5.40) m/uL Hgb (11.4-16.0) gm/dL Hct (34.0-46.0) % MCV (80.0-100.0) fL MCHC (31.0-37.0) g/dL ABG pH 7.50 H (7.35-7.45) ABG HCO3 28 H (21-25) mmol/L ABG Total CO2 29 H (19-24) mmol/L ABG O2 Saturation 98.5 H (94-97) % Creatinine 0.35 L (0.52-1.04) mg/dL Glucose 110 H (74-99) mg/dL POC Glucose (mg/dL) 112 H (75-99) mg/dL AST 91 H (14-36) U/L ALT 115 H (4-34) U/L Total Protein 5.8 L (6.3-8.2) g/dL Albumin 2.5 L (3.5-5.0) g/dL 10/06/21 Range/Units 07:13 RBC 2.73 L (3.80-5.40) m/uL Hgb 8.4 L (11.4-16.0) gm/dL Hct 27.7 L (34.0-46.0) % MCV 101.3 H (80.0-100.0) fL MCHC 30.2 L (31.0-37.0) g/dL ABG pH (7.35-7.45) ABG HCO3 (21-25) mmol/L ABG Total CO2 (19-24) mmol/L ABG O2 Saturation (94-97) % Creatinine (0.52-1.04) mg/dL Glucose (74-99) mg/dL POC Glucose (mg/dL) (75-99) mg/dL AST (14-36) U/L ALT (4-34) U/L Total Protein (6.3-8.2) g/dL Albumin (3.5-5.0) g/dL Microbiology - Last 24 Hours (Table) 10/01/21 05:56 Blood Culture - Preliminary Blood No Growth after 120 hours 10/03/21 18:31 Blood Culture - Preliminary Blood No Growth after 48 hours Assessment and Plan Assessment: Impression: Acute hypoxic respiratory failure secondary to COVID-19 pneumonia, intubated on 09/11/2021, status post tracheostomy and PEG tube placement on 09/23, presently on pressure control mode of mechanical ventilation, patient tolerated 5 hours of weaning with pressure support of 14 and CPAP yesterday, and the plan is to try again on pressure support and CPAP today. Will maintain on pressure support and CPAP as long as tolerated. Even if she remains on it overnight. Altered mental status, acute toxic metabolic encephalopathy. No acute CVA noted on brain CT. Acute COVID-19 pneumonia History of seizure activity. Remains on seizure medications including Keppra and Tegretol. Previous history of pulmonary embolism, on long-term treatment with Eliquis. Paroxysmal atrial fibrillation Cardiomyopathy and LV dysfunction with ejection fraction of 30-35%. History of pacemaker implantation. 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 coli urinary tract infection History of psoriasis Sacral /coccygeal decubitus ulcer Recommendation: Continue ventilatory support. Give the patient a trial of weaning again with pressure support of 14 and CPAP, her trial on 10/05/2021 was tolerated for about 5 hours. Continue supportive care measures Continue Lovenox, for DVT prophylaxis. Continue Keppra And Tegretol. continue enteral feeding , via PEG tube. Continue physical therapy. continue to monitor in the ICU Critical care time is over 30 minutes Time with Patient: Greater than 30
--- NOTE | 2021-10-06 14:41 | P.PN ---
Subjective Progress Note Date: 10/06/21 CHIEF COMPLAINT: COVID-19 pneumonia HISTORY OF PRESENT ILLNESS: Patient remains in the ICU and is on mechanical ventilation. Patient is status post tracheostomy and PEG tube placement on 09/23/21. Patient is tolerating tube feedings at 42ml/hr. patient is awake and following simple commands but is weak. Consult in place for select specialty for possible transfer to select specialty for further weaning. PHYSICAL EXAM: VITAL SIGNS: Reviewed. GENERAL:no acute distress. HEENT: Moist buccal mucosa. Head is atraumatic, normocephalic. Tracheostomy site clean and intact. ABDOMEN: Soft. Nondistended. PEG tube site clean dry and intact NEUROLOGIC: awake ASSESSMENT: 1. Acute hypoxic respiratory failure secondary to COVID-19 pneumonia requiring mechanical ventilation 2. Severe protein calorie malnutrition PLAN: -Continue tube feedings -Continue ICU management -Continue supportive care Physician Dean Of Admissions note has been reviewed by physician. Signing provider agrees with the documented findings, assessment, and plan of care. Objective - Vital Signs Vital signs: Vital Signs Temp 98.1 F 10/06/21 12:00 Pulse 107 H 10/06/21 14:00 Resp 18 10/06/21 14:00 BP 138/79 10/06/21 14:00 Pulse Ox 95 10/06/21 14:00 Intake & Output 10/05/21 10/06/21 10/06/21 18:59 06:59 18:59 Intake Total 1282 1539 1064 Output Total 500 546 6010 Balance 487 924 -331 Weight 58.3 kg 59.5 kg Intake: IV 820 945 770 .9NS 20 720 720 420 Anidulafungin 100 mg In 100 Sodium Chloride 0.9% 100 ml @ 84 mls/hr IVPB DAILY @1700 [facility] Rx#:[id number] Vancomycin 1,000 mg In 125 250 Sodium Chloride 0.9% 250 ml @ 125 mls/hr IVPB Q12HR [facility] Rx#:[id number] levETIRAcetam IV 1,500 mg 100 100 In Saline 1 100ml.bag @ 400 mls/hr IVPB Q12HR [facility] Rx#:[id number] Intake, IV Titration 0 0 Amount Clevidipine Butyrate 25 0 0 mg In Empty Bag 1 bag @ 1 MG/HR 2 mls/hr IV .Q24H [facility] Rx#:[id number] Tube Feeding 462 504 294 Other 90 Output: Urine 379 555 4686 Other: Voiding Method Indwelling Catheter Indwelling Catheter Indwelling Catheter ABP, PAP, CO, CI - Last Documented Arterial Blood Pressure 123/58 - Labs CBC & Chem 7: 10/06/21 07:13 10/06/21 07:13 Labs: Abnormal Lab Results - Last 24 Hours (Table) 10/05/21 10/05/21 10/06/21 Range/Units 17:47 23:53 05:40 RBC (3.80-5.40) m/uL Hgb (11.4-16.0) gm/dL Hct (34.0-46.0) % MCV (80.0-100.0) fL MCHC (31.0-37.0) g/dL ABG pH 7.50 H (7.35-7.45) ABG HCO3 28 H (21-25) mmol/L ABG Total CO2 29 H (19-24) mmol/L ABG O2 Saturation 98.5 H (94-97) % Creatinine (0.52-1.04) mg/dL Glucose (74-99) mg/dL POC Glucose (mg/dL) 132 H 111 H (75-99) mg/dL AST (14-36) U/L ALT (4-34) U/L Total Protein (6.3-8.2) g/dL Albumin (3.5-5.0) g/dL 10/06/21 10/06/21 10/06/21 Range/Units 05:41 07:13 07:13 RBC 2.73 L (3.80-5.40) m/uL Hgb 8.4 L (11.4-16.0) gm/dL Hct 27.7 L (34.0-46.0) % MCV 101.3 H (80.0-100.0) fL MCHC 30.2 L (31.0-37.0) g/dL ABG pH (7.35-7.45) ABG HCO3 (21-25) mmol/L ABG Total CO2 (19-24) mmol/L ABG O2 Saturation (94-97) % Creatinine 0.35 L (0.52-1.04) mg/dL Glucose 110 H (74-99) mg/dL POC Glucose (mg/dL) 112 H (75-99) mg/dL AST 91 H (14-36) U/L ALT 115 H (4-34) U/L Total Protein 5.8 L (6.3-8.2) g/dL Albumin 2.5 L (3.5-5.0) g/dL 10/06/21 Range/Units 11:52 RBC (3.80-5.40) m/uL Hgb (11.4-16.0) gm/dL Hct (34.0-46.0) % MCV (80.0-100.0) fL MCHC (31.0-37.0) g/dL ABG pH (7.35-7.45) ABG HCO3 (21-25) mmol/L ABG Total CO2 (19-24) mmol/L ABG O2 Saturation (94-97) % Creatinine (0.52-1.04) mg/dL Glucose (74-99) mg/dL POC Glucose (mg/dL) 125 H (75-99) mg/dL AST (14-36) U/L ALT (4-34) U/L Total Protein (6.3-8.2) g/dL Albumin (3.5-5.0) g/dL Microbiology - Last 24 Hours (Table) 10/01/21 05:56 Blood Culture - Preliminary Blood No Growth after 120 hours 10/03/21 18:31 Blood Culture - Preliminary Blood No Growth after 48 hours
[2021-10-06] MEDS: ANIDULAFUNGIN 100 MG in SODIUM CHLORIDE 0.9% 100 ML IVPB SCH (15:58)
[2021-10-06 18:12] LABS: Glucose,Whole Blood 104 mg/dL (75-99)
[2021-10-07] MEDS: carBAMazepine 200 MG TAB PO SCH ×4 (00:43→23:12)
[2021-10-07] MEDS: INSULIN ASPART (NovoLOG) 100 UNIT/ML VIAL SQ SCH ×4 (00:51→18:11)
[2021-10-07 00:52] LABS: Glucose,Whole Blood 102 mg/dL (75-99)
[2021-10-07 06:46] LABS: Glucose,Whole Blood 96 mg/dL (75-99)
[2021-10-07] MEDS ORDERED: VANCOMYCIN TROUGH DUE 1 EACH MISC MISCELLANE ONE (08:00)
[2021-10-07 08:45] LABS: HCT 25.9 % (34.0-46.0); HGB 8.1 gm/dL (11.4-16.0); Hypochromasia Slight; MCH 31.8 pg (25.0-35.0); MCHC 31.4 g/dL (31.0-37.0); MCV 101.1 fL (80.0-100.0); Macrocytosis Slight; Mean Platelet Volume 8.7; Platelet Count 310 k/uL (150-450); RBC 2.56 m/uL (3.80-5.40); RDW 14.5 % (11.5-15.5); WBC 7.1 k/uL (3.8-10.6)
[2021-10-07 08:58] LABS: African American GFR (CKD) >90 (>60 ml/min/1.73 sqM); Anion Gap 5 mmol/L; Blood Urea Nitrogen 13 mg/dL (7-17); Calcium 8.8 mg/dL (8.4-10.2); Carbon Dioxide 27 mmol/L (22-30); Chloride 108 mmol/L (98-107); Glucose 123 mg/dL (74-99); Non-African American GFR(CKD) >90 (>60 ml/min/1.73 sqM); Potassium 3.3 mmol/L (3.5-5.1); Sodium 140 mmol/L (137-145)
[2021-10-07] MEDS: APIXABAN 5 MG TAB PO SCH ×2 (09:06→20:03)
[2021-10-07] MEDS: CHLORHEXIDINE GLUCONATE 15 ML CUP MUCOUS MEM SCH ×2 (09:06→20:04)
[2021-10-07] MEDS: AMIODARONE 200 MG TAB PO SCH (09:06)
[2021-10-07] MEDS: VANCOMYCIN 1,000 MG in SODIUM CHLORIDE 0.9% 250 ML IVPB SCH ×2 (09:06→20:03)
[2021-10-07] MEDS: levETIRAcetam IV 1,500 MG in SALINE 1 100ML.BAG IVPB SCH ×2 (09:06→20:03)
[2021-10-07] MEDS: METOPROLOL TARTRATE 25 MG TAB PO SCH ×2 (09:06→20:03)
[2021-10-07] MEDS: CHOLECALCIFEROL 125 MCG (5000 IU) TABLET PO SCH (09:06)
[2021-10-07] MEDS: PANTOPRAZOLE 40 MG/10 ML VIAL IV SCH (09:07)
[2021-10-07] MEDS: QUEtiapine 25 MG TAB PO SCH ×2 (09:07→20:03)
[2021-10-07] MEDS: POTASSIUM BICARBONATE/CIT AC 20 MEQ TABLET.EFF NG-TUBE SCH ×2 (09:37→10:13)
[2021-10-07 11:34] LABS: Glucose,Whole Blood 104 mg/dL (75-99)
--- NOTE | 2021-10-07 11:43 | P.PN ---
Subjective Progress Note Date: 10/07/21 Principal diagnosis: Acute COVID-19 pneumonia with acute hypoxic respiratory failure and altered mental status. 10/04/2021, the patient is being seen in follow-up in the intensive care unit. This morning, the patient remains off sedation. She is awake and alert. She remains on a pressure control mode of mechanical ventilation. She is at the rate of 16 with a pressure control of 18 with an FiO2 of 40% with a PEEP of 5. No blood gases available from today. Chest x-ray showing stable findings with a persistent left lower lobe effusion/consolidation. The patient started spiking temperature as of yesterday. T-max was at 11.9. She is still febrile with a temperature 100.1. I was not informed of this changes and the focal went right away to infectious disease. The patient was given 2 sets of blood cultures. Noted the patient was already receiving a combination of vancomycin and Eraxis. That is his sputum culture is still showing Radha. The patient has a PICC line in her right upper extremity. The exit site is dry clean and intact. No diarrhea. No other clear source of infection at this point in time. Infections on the case. Pro-calcitonin level will be checked. She remains hemodynamically stable. She is on no pressors. Cardiac rhythm is sinus with frequent PACs and PVCs. Fluid balance has been +1.2 L over the past 24 hours. Note that the patient's weaning parameters of the persistently weak. Nevertheless, she was able to tolerate a full total of 4 hours a pressure support mode of mechanical ventilation with a pressure support of 15 and a PEEP of 5 Reevaluated today on 10/05/2021, patient remains in the ICU, intubated, mechanically ventilated, she is extremely weak, but awake, follows all instructions, she is on pressure control mode of mechanical ventilation, with a pressure control of 16, inspiratory time of 0.9, FiO2 40%, PEEP of 5, her peak airway pressure is 25 plateau pressure is 13. ABG today showed a pO2 of 95 pCO2 of 38 pH of 7.50 however the patient is noted to be pulling less and less tidal volume, hence I increased her pressure control to 22, and she seems to be much better with a tidal volume up to 350 and sometimes 400s range. Patient remains on tube feeding at 35 mL/h using vital AF. Her IV fluid is 0.9 normal saline at 50 mL per hour. Patient is not requiring any pressors, she is not on any sedation, and I am empty to consider the patient for trial of pressure support and CPAP if possible. Again the patient is generally weak, but will give her trials of weaning hopefully beginning tomorrow. CBC today is relatively normal hemoglobin is 8.1. Electrolytes are normal renal profile is normal chest x-ray yesterday showed chronic emphysematous changes, chronic left basilar opacity demonstrated. And no acute change otherwise Reevaluated today on 10/06/2021, remains in the ICU, intubated and mechanically ventilated. Patient was given a trial of pressure support and CPAP yesterday she was on pressure support of 14 and CPAP of 5, tolerated that for about 5-6 hours. Patient was later noted to desaturate, and she was gagging on the tracheostomy tube, becoming a bit agitated, hence she was placed back on the pressure control mode of mechanical ventilation, she is now on pressure control of 22 inspiratory time of 0.9 seconds FiO2 40% PEEP of 5. ABG today showed a pO2 of 105 pCO2 of 36 pH of 7.50. Her peak airway pressure is 28 plateau pressure is 22. Patient is on tube feeding, she is receiving vital AF 42 mL per hour. My plan today is to place the patient back on pressure support of 14 and CPAP, with FiO2 of 40%. Patient is not requiring any sedation, she is not on any major drips. Her IV fluid is 0.9 normal saline at 50 mL per hour. Mentation seems to be much improved compared to baseline, and she continues to do well mentally over the last 24 hours. She is alert, appropriate, follows all simple instructions. Chest x-ray showed chronic changes and chronic left basila r opacity. Not much different compared to the last few days. WBC count is 5.6 hemoglobin is 8.4 electrolytes are normal renal profile is normal ABG showed a pO2 of 105 pCO2 of 36 pH of 7.50. Reevaluated today on 10/07/2021, patient remains in the ICU, intubated and mechanically ventilated. Yesterday the patient went on pressure support 14 and CPAP, and this was tolerated for about 12 hours. Today I plan to place the patient on trach collar. Presently she is on pressure control mode of mechan ical ventilation with a pressure control set at 22 TI of 0.9 FiO2 40% PEEP of 5. Rate is 36. No ABG was done today. Her CBC is relatively unremarkable electrolytes are normal except for low potassium of 3.3 being corrected as per protocol. Patient remains on enteral feeding. No chest x-ray was done today. Patient remains on amiodarone, Eraxis, Eliquis, Tegretol, COVID-19 cocktail, Keppra, metoprolol, Protonix, vancomycin, Seroquel, Objective - Vital Signs Vital signs: Vital Signs Temp 99 F 10/07/21 08:00 Pulse 93 10/07/21 11:00 Resp 27 H 10/07/21 11:00 BP 119/74 10/07/21 11:00 Pulse Ox 94 L 10/07/21 11:00 Intake & Output 10/06/21 10/07/21 10/07/21 18:59 06:59 18:59 Intake Total 1674 902 650 Output Total 2110 541 300 Balance -436 361 350 Weight 59.5 kg 59.3 kg Intake: IV 1070 570 450 .9NS 20 720 220 100 Vancomycin 1,000 mg In 250 250 250 Sodium Chloride 0.9% 250 ml @ 125 mls/hr IVPB Q12HR [facility] Rx#:[id number] levETIRAcetam IV 1,500 mg 100 100 100 In Saline 1 100ml.bag @ 400 mls/hr IVPB Q12HR [facility] Rx#:[id number] Intake, IV Titration 100 Amount Anidulafungin 100 mg In 100 Sodium Chloride 0.9% 100 ml @ 84 mls/hr IVPB DAILY @1700 [facility] Rx#:[id number] Clevidipine Butyrate 25 0 mg In Empty Bag 1 bag @ 1 MG/HR 2 mls/hr IV .Q24H [facility] Rx#:[id number] Tube Feeding 504 242 110 Other 90 90 Output: Urine 2110 540 300 Stool 1 Other: Voiding Method Indwelling Catheter Indwelling Catheter Indwelling Catheter # Bowel Movements 1 ABP, PAP, CO, CI - Last Documented Arterial Blood Pressure 123/58 - Exam Physical Exam: Revealed a 51-year-old female intubated, mechanically ventilated, via tracheostomy. Patient is awake, follows all simple instructions. Head: Atraumatic, normocephalic, tracheostomy tube is in place. HEENT:[Neck is supple.] [No neck masses.] [No thyromegaly.] [No JVD.] Chest: Symmetrical chest expansion, crackles at the bases. Psychiatric: Normal mood, normal affect, normal mental status. Cardiac Exam: [Normal S1 and S2, no S3 gallop, no murmur.] Abdomen: [Soft, nontender, no megaly, no rebound, no guarding, normal bowel sounds.] PEG tube is intact. Extremities: [No clubbing, no edema, no cyanosis.] Skin: Patient has chronic coccygeal ulceration/pressure ulcer. Neurological Exam: Remains weak otherwise unremarkable. - Labs CBC & Chem 7: 10/07/21 08:29 10/07/21 08:29 Labs: Abnormal Lab Results - Last 24 Hours (Table) 10/06/21 10/06/21 10/07/21 Range/Units 11:52 18:01 00:49 RBC (3.80-5.40) m/uL Hgb (11.4-16.0) gm/dL Hct (34.0-46.0) % MCV (80.0-100.0) fL Potassium (3.5-5.1) mmol/L Chloride (98-107) mmol/L Creatinine (0.52-1.04) mg/dL Glucose (74-99) mg/dL POC Glucose (mg/dL) 125 H 104 H 102 H (75-99) mg/dL 10/07/21 10/07/21 10/07/21 Range/Units 08:29 08:29 11:32 RBC 2.56 L (3.80-5.40) m/uL Hgb 8.1 L (11.4-16.0) gm/dL Hct 25.9 L (34.0-46.0) % MCV 101.1 H (80.0-100.0) fL Potassium 3.3 L (3.5-5.1) mmol/L Chloride 108 H (98-107) mmol/L Creatinine 0.34 L (0.52-1.04) mg/dL Glucose 123 H (74-99) mg/dL POC Glucose (mg/dL) 104 H (75-99) mg/dL Microbiology - Last 24 Hours (Table) 10/01/21 05:56 Blood Culture - Final Blood No Growth after 144 hours 10/03/21 18:31 Blood Culture - Preliminary Blood No Growth after 72 hours Assessment and Plan Assessment: Impression: Acute hypoxic respiratory failure secondary to COVID-19 pneumonia, intubated on 09/11/2021, status post tracheostomy and PEG tube placement on 09/23, presently on pressure control mode of mechanical ventilation, patient has been tolerating pressure support and CPAP over the last 2 days, today I am going to try the patient on trach collar. At 45% FiO2. Altered mental status, acute toxic metabolic encephalopathy. No acute CVA noted on brain CT. significantly improved. Acute COVID-19 pneumonia History of seizure activity. And pain on seizure meds. Previous history of pulmonary embolism, on long-term treatment with Eliquis. Paroxysmal atrial fibrillation Cardiomyopathy and LV dysfunction with ejection fraction of 30-35%. History of pacemaker implantation. 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 coli urinary tract infection History of psoriasis Sacral /coccygeal decubitus ulcer Recommendation: Continue ventilatory support. However I plan to try the patient on trach collar today. Patient has been tolerating pressure support and CPAP for the last 2 days. Yesterday she tolerated pressure support for almost 12 hours. Continue supportive care measures Continue Lovenox, for DVT prophylaxis. Continue Keppra And Tegretol. continue enteral feeding , via PEG tube. Continue physical therapy. continue to monitor in the ICU Critical care time is over 30 minutes Time with Patient: Greater than 30
[2021-10-07] MEDS: CLEVIDIPINE BUTYRATE 25 MG in EMPTY BAG 1 BAG IV SCH (13:23)
--- NOTE | 2021-10-07 13:57 | P.PN ---
Subjective Progress Note Date: 10/07/21 CHIEF COMPLAINT: COVID-19 pneumonia HISTORY OF PRESENT ILLNESS: Patient remains in the ICU and is on mechanical ventilation. Patient is status post tracheostomy and PEG tube placement on 09/23/21. Patient is tolerating tube feedings at 22ml/hr. patient is awake and following simple commands but is weak. Consult in place for select specialty for possible transfer to select specialty for further weaning. Critical care service is going to trial patient on trach collar today. PHYSICAL EXAM: VITAL SIGNS: Reviewed. GENERAL:no acute distress. HEENT: Moist buccal mucosa. Head is atraumatic, normocephalic. Tracheostomy site clean and intact. ABDOMEN: Soft. Nondistended. PEG tube site clean dry and intact NEUROLOGIC: awake ASSESSMENT: 1. Acute hypoxic respiratory failure secondary to COVID-19 pneumonia requiring mechanical ventilation 2. Severe protein calorie malnutrition PLAN: -Continue tube feedings -Continue ICU management -Continue supportive care Physician Transitions Rn Care Coordinator note has been reviewed by physician. Signing provider agrees with the documented findings, assessment, and plan of care. Objective - Vital Signs Vital signs: Vital Signs Temp 99.8 F H 10/07/21 12:00 Pulse 82 10/07/21 13:00 Resp 33 H 10/07/21 13:00 BP 126/71 10/07/21 13:00 Pulse Ox 97 10/07/21 13:00 Intake & Output 10/06/21 10/07/21 10/07/21 18:59 06:59 18:59 Intake Total 1674 902 764 Output Total 2110 541 750 Balance -436 361 14 Weight 59.5 kg 59.3 kg Intake: IV 1070 570 490 .9NS 20 720 220 140 Vancomycin 1,000 mg In 250 250 250 Sodium Chloride 0.9% 250 ml @ 125 mls/hr IVPB Q12HR [facility] Rx#:[id number] levETIRAcetam IV 1,500 mg 100 100 100 In Saline 1 100ml.bag @ 400 mls/hr IVPB Q12HR [facility] Rx#:[id number] Intake, IV Titration 100 Amount Anidulafungin 100 mg In 100 Sodium Chloride 0.9% 100 ml @ 84 mls/hr IVPB DAILY @1700 [facility] Rx#:[id number] Clevidipine Butyrate 25 0 mg In Empty Bag 1 bag @ 1 MG/HR 2 mls/hr IV .Q24H [facility] Rx#:[id number] Tube Feeding 504 242 154 Other 90 120 Output: Urine 2110 540 750 Stool 1 Other: Voiding Method Indwelling Catheter Indwelling Catheter Indwelling Catheter # Bowel Movements 1 ABP, PAP, CO, CI - Last Documented Arterial Blood Pressure 123/58 - Labs CBC & Chem 7: 10/07/21 08:29 10/07/21 08:29 Labs: Abnormal Lab Results - Last 24 Hours (Table) 10/06/21 10/07/21 10/07/21 Range/Units 18:01 00:49 08:29 RBC (3.80-5.40) m/uL Hgb (11.4-16.0) gm/dL Hct (34.0-46.0) % MCV (80.0-100.0) fL Potassium 3.3 L (3.5-5.1) mmol/L Chloride 108 H (98-107) mmol/L Creatinine 0.34 L (0.52-1.04) mg/dL Glucose 123 H (74-99) mg/dL POC Glucose (mg/dL) 104 H 102 H (75-99) mg/dL 10/07/21 10/07/21 Range/Units 08:29 11:32 RBC 2.56 L (3.80-5.40) m/uL Hgb 8.1 L (11.4-16.0) gm/dL Hct 25.9 L (34.0-46.0) % MCV 101.1 H (80.0-100.0) fL Potassium (3.5-5.1) mmol/L Chloride (98-107) mmol/L Creatinine (0.52-1.04) mg/dL Glucose (74-99) mg/dL POC Glucose (mg/dL) 104 H (75-99) mg/dL Microbiology - Last 24 Hours (Table) 10/01/21 05:56 Blood Culture - Final Blood No Growth after 144 hours 10/03/21 18:31 Blood Culture - Preliminary Blood No Growth after 72 hours
[2021-10-07] MEDS: ANIDULAFUNGIN 100 MG in SODIUM CHLORIDE 0.9% 100 ML IVPB SCH (16:53)
[2021-10-07 17:37] LABS: Glucose,Whole Blood 106 mg/dL (75-99)
--- NOTE | 2021-10-07 18:17 | P.PN ---
<Godwin, - Last Filed: 10/07/21 17:33> Subjective Progress Note Date: 10/06/21 Principal diagnosis: Altered mental status Patient is a 51-year-old female presented to the emergency room with altered mental status, COVID-19 pneumonia, UTI, seizures and possible stroke. UTI and pneumonia have been treated, and sepsis resolved. 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 Patient has been in the hospital since September 10, 2021 and has had extensive evaluations and treatment. Patient has been followed by multiple consultants including intensive care/pulmonary, neurology, and surgical services. Hospitalists have been providing coverage from 09/10/2021 through 10/05/2021. Patient continues to require mechanical ventilation. Patient is status post PEG tube placement and tracheotomy placement. 10/06/21 Patient was seen and examined at bedside in the ICU. Continues to require mechanical ventilation via tracheostomy. FiO2 40%, PEEP 5, oxygen saturation 96%, blood pressure 149/82. She is alert, responds to name, and follows simple commands. Denies any acute symptoms, unable to speak, replies by shaking her head yes or no. Left-sided paralysis, right-sided weakness able to grasp fingers and wiggle toes on the right. White blood cell count 5.6, kidney fun ction improved the BUN 15, creatinine 0.3, liver enzymes continue to be elevated but improving. Plan was to discharge patient to select specialty, insurance denied, awaiting clearance from social work. Objective - Vital Signs Vital signs: Vital Signs Temp 99.7 F H 10/07/21 16:00 Pulse 96 10/07/21 17:00 Resp 20 10/07/21 17:00 BP 147/80 10/07/21 17:00 Pulse Ox 93 L 10/07/21 17:00 Intake & Output 10/06/21 10/07/21 10/07/21 18:59 06:59 18:59 Intake Total 1674 902 962 Output Total 2110 541 1150 Balance -436 361 -188 Weight 59.5 kg 59.3 kg Intake: IV 1070 570 570 .9NS 20 720 220 220 Vancomycin 1,000 mg In 250 250 250 Sodium Chloride 0.9% 250 ml @ 125 mls/hr IVPB Q12HR [facility] Rx#:[id number] levETIRAcetam IV 1,500 mg 100 100 100 In Saline 1 100ml.bag @ 400 mls/hr IVPB Q12HR [facility] Rx#:[id number] Intake, IV Titration 100 Amount Anidulafungin 100 mg In 100 Sodium Chloride 0.9% 100 ml @ 84 mls/hr IVPB DAILY @1700 [facility] Rx#:[id number] Clevidipine Butyrate 25 0 mg In Empty Bag 1 bag @ 1 MG/HR 2 mls/hr IV .Q24H [facility] Rx#:[id number] Tube Feeding 504 242 242 Other 90 150 Output: Urine 2110 540 1150 Stool 1 Other: Voiding Method Indwelling Catheter Indwelling Catheter Indwelling Catheter # Bowel Movements 1 ABP, PAP, CO, CI - Last Documented Arterial Blood Pressure 123/58 - Constitutional General appearance: Present: average body habitus, no acute distress - EENT Eyes: Present: EOMI, PERRLA Ears: bilateral: normal - Neck Details: trach in place Neck: Present: normal ROM - Respiratory Respiratory: bilateral: diminished - Cardiovascular Heart rate: 70 Rhythm: regular Heart sounds: normal: S1, S2 - Peripheral pulses dorsalis pedis Peripheral Pulses: bilateral: Normal - Gastrointestinal General gastrointestinal: Present: normal bowel sounds, soft - Genitourinary Genitourinary Comment(s): catheter in place - Integumentary Integumentary: Present: normal turgor - Neurologic Neurologic Comment(s): left side weakness Neurologic: Present: focal deficits - Musculoskeletal Musculoskeletal: Present: left sided weakness - Psychiatric Psychiatric Comment(s): alert, follows simple commands, oriented to self - Allied health notes Allied health notes reviewed: nursing - Labs CBC & Chem 7: 10/07/21 08:29 10/07/21 08:29 Labs: Abnormal Lab Results - Last 24 Hours (Table) 10/06/21 10/07/21 10/07/21 Range/Units 18:01 00:49 08:29 RBC (3.80-5.40) m/uL Hgb (11.4-16.0) gm/dL Hct (34.0-46.0) % MCV (80.0-100.0) fL Potassium 3.3 L (3.5-5.1) mmol/L Chloride 108 H (98-107) mmol/L Creatinine 0.34 L (0.52-1.04) mg/dL Glucose 123 H (74-99) mg/dL POC Glucose (mg/dL) 104 H 102 H (75-99) mg/dL 10/07/21 10/07/21 Range/Units 08:29 11:32 RBC 2.56 L (3.80-5.40) m/uL Hgb 8.1 L (11.4-16.0) gm/dL Hct 25.9 L (34.0-46.0) % MCV 101.1 H (80.0-100.0) fL Potassium (3.5-5.1) mmol/L Chloride (98-107) mmol/L Creatinine (0.52-1.04) mg/dL Glucose (74-99) mg/dL POC Glucose (mg/dL) 104 H (75-99) mg/dL Microbiology - Last 24 Hours (Table) 10/01/21 05:56 Blood Culture - Final Blood No Growth after 144 hours 10/03/21 18:31 Blood Culture - Preliminary Blood No Growth after 72 hours - Imaging and Cardiology Chest x-ray: image reviewed CT Scan - head: image reviewed Assessment and Plan Assessment: Altered mental status secondary to metabolic encephalopathy, ruled out intercranial lesions Acute hypoxic respiratory failure secondary to COVID-19 pneumonia requiring mechanical ventilation Status post tracheostomy and PEG tube placement Sepsis secondary to UTI and COVID-19 pneumonia, resolving with treatment Breakthrough seizure, history of previous seizures Unstageable sacral pressure ulcer Cardiomyopathy, EF of 30-35% Acute kidney injury, improved with treatment History of coronary artery disease history of pulmonary embolism History 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 left foot drop Status post permanent pacemaker History of glaucoma but surgical intervention Full code Plan: Continues to require mechanical ventilation, following pulmonary recommendation Antibiotic, vanco, and antifungal treatment for pneumonia per infectious disease recommendations Continue tube feedings, following dietitian recommendations Continue current medication regimen Continue monitoring her mental status for any changes Continue Wound care for unstageable sacral pressure wound Social work working on possible transfer, awaiting insurance approval Further recommendations to come based on patient's clinical course Time with Patient: Greater than 30 <Garth Auguste - Last Filed: 10/22/21 19:54> Subjective I have personally seen and examined the patient, reviewed the documentation and agree with the assessment and plan as written. Number of minutes spent on the visit: Greater than 15. Objective - Vital Signs Vital signs: Vital Signs Temp 98.0 F 10/22/21 12:17 Pulse 94 10/22/21 12:17 Resp 18 10/22/21 12:17 BP 114/64 10/22/21 12:17 Pulse Ox 95 10/22/21 19:36 Intake & Output 10/22/21 10/22/21 10/23/21 06:59 18:59 06:59 Intake Total 1200 960 Output Total 1 1 Balance 1199 959 Weight 55 kg Intake: Oral 0 Tube Feeding 1200 960 Output: Stool 1 1 Other: Voiding Method Diaper Bedpan Diaper # Voids 2 1 # Bowel Movements 1 ABP, PAP, CO, CI - Last Documented Arterial Blood Pressure 123/58 - Labs CBC & Chem 7: 10/22/21 06:37 10/22/21 06:37 Labs: Abnormal Lab Results - Last 24 Hours (Table) 10/21/21 10/22/21 10/22/21 Range/Units 23:49 06:37 06:37 RBC 2.92 L (4.10-5.20) X 10*6/uL Hgb 8.8 L (12.0-15.0) g/dL Hct 29.6 L (37.2-46.3) % MCV 101.4 H (80.0-97.0) fL MCHC 29.7 L (32.0-37.0) g/dL RDW 15.2 H (11.5-14.5) % Eosinophils # 0.45 H (0.04-0.35) X 10*3/uL Carbon Dioxide 27.6 H (20.0-27.5) mmol/L BUN 34.5 H (9.0-27.0) mg/dL Creatinine 0.5 L (0.6-1.5) mg/dL BUN/Creatinine Ratio 69.00 H (12.00-20.00) Ratio POC Glucose (mg/dL) 130 H (75-99) mg/dL 10/22/21 10/22/21 Range/Units 11:56 18:02 RBC (4.10-5.20) X 10*6/uL Hgb (12.0-15.0) g/dL Hct (37.2-46.3) % MCV (80.0-97.0) fL MCHC (32.0-37.0) g/dL RDW (11.5-14.5) % Eosinophils # (0.04-0.35) X 10*3/uL Carbon Dioxide (20.0-27.5) mmol/L BUN (9.0-27.0) mg/dL Creatinine (0.6-1.5) mg/dL BUN/Creatinine Ratio (12.00-20.00) Ratio POC Glucose (mg/dL) 137 H 108 H (75-99) mg/dL
--- NOTE | 2021-10-07 18:26 | P.PN ---
<Godwin, - Last Filed: 10/07/21 18:17> Subjective Progress Note Date: 10/07/21 Principal diagnosis: Altered mental status Patient is a 51-year-old female presented to the emergency room with altered mental status, COVID-19 pneumonia, UTI, seizures and possible stroke. UTI and pneumonia have been treated, and sepsis resolved. 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 Patient has been in the hospital since September 10, 2021 and has had extensive evaluations and treatment. Patient has been followed by multiple consultants including intensive care/pulmonary, neurology, and surgical services. Hospitalists have been providing coverage from 09/10/2021 through 10/05/2021. Patient continues to require mechanical ventilation. Patient is status post PEG tube placement and tracheotomy placement. 10/06/21 Patient was seen and examined at bedside in the ICU. Continues to require mechanical ventilation via tracheostomy. FiO2 40%, PEEP 5, oxygen saturation 96%, blood pressure 149/82. She is alert, responds to name, and follows simple commands. Denies any acute symptoms, unable to speak, replies by shaking her head yes or no. Left-sided paralysis, right-sided weakness able to grasp fingers and wiggle toes on the right. White blood cell count 5.6, kidney fun ction improved the BUN 15, creatinine 0.3, liver enzymes continue to be elevated but improving. Plan was to discharge patient to select specialty, insurance denied, awaiting clearance from social work. 10/07/21 Patient was seen and examined at bedside in ICU. Patient is resting comfortably, in no acute distress. Continues to require mechanical ventilation via tracheostomy. FiO2 40%, PEEP 5, oxygen saturation 95%, blood pressure 119/74. Patient is alert and oriented to self, able to follow simple commands. Continued left-sided paralysis, right-sided weakness. Potassium 3.3, was treated according to protocol. Kidney function remains stable, white count 7.1 today. Still waiting for insurance appeal for transfer to long-term acute care. Objective - Vital Signs Vital signs: Vital Signs Temp 99.7 F H 10/07/21 16:00 Pulse 104 H 10/07/21 18:00 Resp 12 10/07/21 18:00 BP 183/86 10/07/21 18:00 Pulse Ox 97 10/07/21 18:00 Intake & Output 10/06/21 10/07/21 10/07/21 18:59 06:59 18:59 Intake Total 3854 045 7759 Output Total 2110 541 1400 Balance -436 361 -396 Weight 59.5 kg 59.3 kg Intake: IV 1070 570 590 .9NS 20 720 220 240 Vancomycin 1,000 mg In 250 250 250 Sodium Chloride 0.9% 250 ml @ 125 mls/hr IVPB Q12HR [facility] Rx#:[id number] levETIRAcetam IV 1,500 mg 100 100 100 In Saline 1 100ml.bag @ 400 mls/hr IVPB Q12HR [facility] Rx#:[id number] Intake, IV Titration 100 Amount Anidulafungin 100 mg In 100 Sodium Chloride 0.9% 100 ml @ 84 mls/hr IVPB DAILY @1700 [facility] Rx#:[id number] Clevidipine Butyrate 25 0 mg In Empty Bag 1 bag @ 1 MG/HR 2 mls/hr IV .Q24H [facility] Rx#:[id number] Tube Feeding 504 242 264 Other 90 150 Output: Urine 2110 540 1400 Stool 1 Other: Voiding Method Indwelling Catheter Indwelling Catheter Indwelling Catheter # Bowel Movements 1 ABP, PAP, CO, CI - Last Documented Arterial Blood Pressure 123/58 - Constitutional General appearance: Present: average body habitus, cooperative, no acute distress - EENT Eyes: Present: EOMI, PERRLA Ears: bilateral: normal - Neck Details: Tracheostomy in place - Respiratory Respiratory: bilateral: diminished - Cardiovascular Heart rate: 90 Rhythm: regular Heart sounds: normal: S1, S2 - Peripheral pulses dorsalis pedis Peripheral Pulses: bilateral: Normal radial pulse Peripheral Pulses: bilateral: Normal - Gastrointestinal Gastrointestinal Comment(s): PEG tube present General gastrointestinal: Present: normal bowel sounds, soft - Genitourinary Genitourinary Comment(s): Ambrocio catheter present - Integumentary Integumentary: Present: normal - Neurologic Neurologic: Present: focal deficits - Musculoskeletal Musculoskeletal: Present: right sided weakness, left sided weakness (Paralysis) - Psychiatric Psychiatric Comment(s): Clear, oriented to self, follows simple commands - Allied health notes Allied health notes reviewed: nursing - Labs CBC & Chem 7: 10/07/21 08:29 10/07/21 08:29 Labs: Abnormal Lab Results - Last 24 Hours (Table) 10/07/21 10/07/21 10/07/21 Range/Units 00:49 08:29 08:29 RBC 2.56 L (3.80-5.40) m/uL Hgb 8.1 L (11.4-16.0) gm/dL Hct 25.9 L (34.0-46.0) % MCV 101.1 H (80.0-100.0) fL Potassium 3.3 L (3.5-5.1) mmol/L Chloride 108 H (98-107) mmol/L Creatinine 0.34 L (0.52-1.04) mg/dL Glucose 123 H (74-99) mg/dL POC Glucose (mg/dL) 102 H (75-99) mg/dL 10/07/21 10/07/21 Range/Units 11:32 17:35 RBC (3.80-5.40) m/uL Hgb (11.4-16.0) gm/dL Hct (34.0-46.0) % MCV (80.0-100.0) fL Potassium (3.5-5.1) mmol/L Chloride (98-107) mmol/L Creatinine (0.52-1.04) mg/dL Glucose (74-99) mg/dL POC Glucose (mg/dL) 104 H 106 H (75-99) mg/dL Microbiology - Last 24 Hours (Table) 10/01/21 05:56 Blood Culture - Final Blood No Growth after 144 hours 10/03/21 18:31 Blood Culture - Preliminary Blood No Growth after 72 hours Assessment and Plan Assessment: Altered mental status secondary to metabolic encephalopathy, ruled out intercranial lesions Acute hypoxic respiratory failure secondary to COVID-19 pneumonia requiring mechanical ventilation Status post tracheostomy and PEG tube placement Sepsis secondary to UTI and COVID-19 pneumonia, resolving with treatment Breakthrough seizure, history of previous seizures Unstageable sacral pressure ulcer Cardiomyopathy, EF of 30-35% Acute kidney injury, improved with treatment History of coronary artery disease history of pulmonary embolism History 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 left foot drop Status post permanent pacemaker History of glaucoma but surgical intervention Full code Plan: Continues to require mechanical ventilation, following pulmonary recommendation Antibiotic, vanco, and antifungal treatment for pneumonia per infectious disease recommendations Continue tube feedings, following dietitian recommendations Continue current medication regimen Continue monitoring her mental status for any changes Continue Wound care for unstageable sacral pressure wound Still waiting for insurance approval for transfer to long-term acute care Further recommendations to come based on patient's clinical course Time with Patient: Greater than 30 <Garth Auguste - Last Filed: 10/22/21 19:54> Subjective I have personally seen and examined the patient, reviewed the documentation and agree with the assessment and plan as written. Number of minutes spent on the visit: Greater than 15. Objective - Vital Signs Vital signs: Vital Signs Temp 98.0 F 10/22/21 12:17 Pulse 94 10/22/21 12:17 Resp 18 10/22/21 12:17 BP 114/64 10/22/21 12:17 Pulse Ox 95 10/22/21 19:36 Intake & Output 10/22/21 10/22/21 10/23/21 06:59 18:59 06:59 Intake Total 1200 960 Output Total 1 1 Balance 1199 959 Weight 55 kg Intake: Oral 0 Tube Feeding 1200 960 Output: Stool 1 1 Other: Voiding Method Diaper Bedpan Diaper # Voids 2 1 # Bowel Movements 1 ABP, PAP, CO, CI - Last Documented Arterial Blood Pressure 123/58 - Labs CBC & Chem 7: 10/22/21 06:37 10/22/21 06:37 Labs: Abnormal Lab Results - Last 24 Hours (Table) 10/21/21 10/22/21 10/22/21 Range/Units 23:49 06:37 06:37 RBC 2.92 L (4.10-5.20) X 10*6/uL Hgb 8.8 L (12.0-15.0) g/dL Hct 29.6 L (37.2-46.3) % MCV 101.4 H (80.0-97.0) fL MCHC 29.7 L (32.0-37.0) g/dL RDW 15.2 H (11.5-14.5) % Eosinophils # 0.45 H (0.04-0.35) X 10*3/uL Carbon Dioxide 27.6 H (20.0-27.5) mmol/L BUN 34.5 H (9.0-27.0) mg/dL Creatinine 0.5 L (0.6-1.5) mg/dL BUN/Creatinine Ratio 69.00 H (12.00-20.00) Ratio POC Glucose (mg/dL) 130 H (75-99) mg/dL 10/22/21 10/22/21 Range/Units 11:56 18:02 RBC (4.10-5.20) X 10*6/uL Hgb (12.0-15.0) g/dL Hct (37.2-46.3) % MCV (80.0-97.0) fL MCHC (32.0-37.0) g/dL RDW (11.5-14.5) % Eosinophils # (0.04-0.35) X 10*3/uL Carbon Dioxide (20.0-27.5) mmol/L BUN (9.0-27.0) mg/dL Creatinine (0.6-1.5) mg/dL BUN/Creatinine Ratio (12.00-20.00) Ratio POC Glucose (mg/dL) 137 H 108 H (75-99) mg/dL
[2021-10-07] MEDS ORDERED: ALPRAZolam 0.25 MG TAB PO STA (19:56)
--- NOTE | 2021-10-07 22:45 | P.PN ---
Subjective Progress Note Date: 10/05/21 Principal diagnosis: Pneumonia pressure ulcer and multiple antibiotic allergies Patient is a 51-year-old female presenting to the hospital on September 10 for mental status changes patient did have a evidence of COVID-19 infection, with respiratory failure requiring intubation also with E. coli UTI and the patient did have multiple antibiotic allergies. The patient is status post tracheostomy and PEG tube placement on 09/23/2021 On today's evaluation that is to to 10/05/2021, patient remains to be afebrile, the patient is hemodynamically stable not requiring pressor support, the patient FiO2 is stable at 40%, no purulent secretions through the the ET or diarrhea has been reported by the nursing staff Objective - Vital Signs Vital signs: Vital Signs Temp 98.5 F 10/05/21 20:00 Pulse 80 10/05/21 21:00 Resp 23 10/05/21 21:00 BP 120/72 10/05/21 21:00 Pulse Ox 98 10/05/21 21:00 Intake & Output 10/05/21 10/05/21 10/06/21 06:59 18:59 06:59 Intake Total 1140 1282 459 Output Total 585 795 100 Balance 555 487 359 Weight 58.3 kg 58.3 kg Intake: IV 720 820 345 .9NS 20 720 720 120 Anidulafungin 100 mg In 100 Sodium Chloride 0.9% 100 ml @ 84 mls/hr IVPB DAILY @1700 [facility] Rx#:[id number] Vancomycin 1,000 mg In 125 Sodium Chloride 0.9% 250 ml @ 125 mls/hr IVPB Q12HR [facility] Rx#:[id number] levETIRAcetam IV 1,500 mg 100 In Saline 1 100ml.bag @ 400 mls/hr IVPB Q12HR [facility] Rx#:[id number] Intake, IV Titration 0 Amount Clevidipine Butyrate 25 0 mg In Empty Bag 1 bag @ 1 MG/HR 2 mls/hr IV .Q24H [facility] Rx#:[id number] Tube Feeding 420 462 84 Other 30 Output: Urine 585 795 100 Other: Voiding Method Indwelling Catheter Indwelling Catheter Indwelling Catheter ABP, PAP, CO, CI - Last Documented Arterial Blood Pressure 123/58 - Exam GENERAL DESCRIPTION: Middle-aged male intubated on the vent, no distress. No tachypnea or accessory muscle of respiration use. LUNGS: Unlabored breathing. Decreased breath sound at the base. No wheeze or crackle. HEART: S1, S2, regular rate and rhythm. No loud murmur ABDOMEN: Soft, no tenderness , EXTREMITIES: No edema of feet. - Labs CBC & Chem 7: 10/07/21 08:29 10/07/21 08:29 Labs: Abnormal Lab Results - Last 24 Hours (Table) 10/04/21 10/05/21 10/05/21 Range/Units 23:52 05:15 05:33 RBC (3.80-5.40) m/uL Hgb (11.4-16.0) gm/dL Hct (34.0-46.0) % ABG pH 7.50 H (7.35-7.45) ABG HCO3 30 H (21-25) mmol/L ABG Total CO2 31 H (19-24) mmol/L ABG O2 Saturation 97.9 H (94-97) % Creatinine 0.39 L (0.52-1.04) mg/dL Glucose 117 H (74-99) mg/dL POC Glucose (mg/dL) 122 H (75-99) mg/dL 10/05/21 10/05/21 10/05/21 Range/Units 05:33 05:54 11:47 RBC 2.50 L (3.80-5.40) m/uL Hgb 8.1 L (11.4-16.0) gm/dL Hct 25.0 L (34.0-46.0) % ABG pH (7.35-7.45) ABG HCO3 (21-25) mmol/L ABG Total CO2 (19-24) mmol/L ABG O2 Saturation (94-97) % Creatinine (0.52-1.04) mg/dL Glucose (74-99) mg/dL POC Glucose (mg/dL) 117 H 112 H (75-99) mg/dL 10/05/21 Range/Units 17:47 RBC (3.80-5.40) m/uL Hgb (11.4-16.0) gm/dL Hct (34.0-46.0) % ABG pH (7.35-7.45) ABG HCO3 (21-25) mmol/L ABG Total CO2 (19-24) mmol/L ABG O2 Saturation (94-97) % Creatinine (0.52-1.04) mg/dL Glucose (74-99) mg/dL POC Glucose (mg/dL) 132 H (75-99) mg/dL Microbiology - Last 24 Hours (Table) 10/03/21 18:31 Blood Culture - Preliminary Blood No Growth after 48 hours 10/01/21 05:56 Blood Culture - Preliminary Blood No Growth after 96 hours Assessment and Plan (1) Pneumonia Current Visit: Yes Status: Acute Code(s): J18.9 - PNEUMONIA, UNSPECIFIED ORGANISM SNOMED Code(s): 259304758 (2) Allergy to multiple antibiotics Current Visit: Yes Status: Acute Code(s): Z88.1 - ALLERGY STATUS TO OTHER ANTIBIOTIC AGENTS SNOMED Code(s): 734441295 (3) COVID-19 Current Visit: Yes Status: Acute Code(s): U07.1 - COVID-19 SNOMED Code(s): 632104104 Plan: 1-Patient with acute respiratory failure which is multifactorial in this patient who did have a covid19 pneumonia and a concern for possible secondary bacterial pneumonia , patient did have new fever on 10/03/2021 with concern for possible PICC line infection blood cultures were obtained from the PICC line which are currently pending patient UA is negative, patient to continue with vancomycin and Eraxis 2-patient with unstageable sacral pressure ulcer as well as unstageable pressure ulcer to the upper back area, local wound care with the medfabriziooney followed by moist dressing and keep the area off the pressure 3-left elbow pressure ulcer stage II with no cellulitis local wound care with a dry with visible dressing daily off the pressure Time with Patient: Less than 30
--- NOTE | 2021-10-07 22:47 | P.PN ---
Subjective Progress Note Date: 10/06/21 Principal diagnosis: Pneumonia pressure ulcer and multiple antibiotic allergies Patient is a 51-year-old female presenting to the hospital on September 10 for mental status changes patient did have a evidence of COVID-19 infection, with respiratory failure requiring intubation also with E. coli UTI and the patient did have multiple antibiotic allergies. The patient is status post tracheostomy and PEG tube placement on 09/23/2021 On today's evaluation that is to to 10/06/2021, patient continues to be afebrile, the patient is hemodynamically stable not requiring pressor support, the patient FiO2 is stable at 40%, no purulent secretions through the the ET or diarrhea has been reported by the nursing staff , no other changes reported by the nursing staff Objective - Vital Signs Vital signs: Vital Signs Temp 98.1 F 10/06/21 12:00 Pulse 116 H 10/06/21 12:00 Resp 14 10/06/21 12:00 BP 149/82 10/06/21 12:00 Pulse Ox 96 10/06/21 12:00 Intake & Output 10/05/21 10/06/21 10/06/21 18:59 06:59 18:59 Intake Total 1282 1539 860 Output Total 795 615 975 Balance 487 924 -115 Weight 58.3 kg 59.5 kg Intake: IV 820 945 650 .9NS 20 720 720 300 Anidulafungin 100 mg In 100 Sodium Chloride 0.9% 100 ml @ 84 mls/hr IVPB DAILY @1700 [facility] Rx#:[id number] Vancomycin 1,000 mg In 125 250 Sodium Chloride 0.9% 250 ml @ 125 mls/hr IVPB Q12HR [facility] Rx#:[id number] levETIRAcetam IV 1,500 mg 100 100 In Saline 1 100ml.bag @ 400 mls/hr IVPB Q12HR [facility] Rx#:[id number] Intake, IV Titration 0 0 Amount Clevidipine Butyrate 25 0 0 mg In Empty Bag 1 bag @ 1 MG/HR 2 mls/hr IV .Q24H [facility] Rx#:[id number] Tube Feeding 462 504 210 Other 90 Output: Urine 795 615 975 Other: Voiding Method Indwelling Catheter Indwelling Catheter Indwelling Catheter ABP, PAP, CO, CI - Last Documented Arterial Blood Pressure 123/58 - Exam GENERAL DESCRIPTION: Middle-aged male intubated on the vent, no distress. No tachypnea or accessory muscle of respiration use. LUNGS: Unlabored breathing. Decreased breath sound at the base. No wheeze or crackle. HEART: S1, S2, regular rate and rhythm. No loud murmur ABDOMEN: Soft, no tenderness , EXTREMITIES: No edema of feet. - Labs CBC & Chem 7: 10/07/21 08:29 10/07/21 08:29 Labs: Abnormal Lab Results - Last 24 Hours (Table) 10/05/21 10/05/21 10/06/21 Range/Units 17:47 23:53 05:40 RBC (3.80-5.40) m/uL Hgb (11.4-16.0) gm/dL Hct (34.0-46.0) % MCV (80.0-100.0) fL MCHC (31.0-37.0) g/dL ABG pH 7.50 H (7.35-7.45) ABG HCO3 28 H (21-25) mmol/L ABG Total CO2 29 H (19-24) mmol/L ABG O2 Saturation 98.5 H (94-97) % Creatinine (0.52-1.04) mg/dL Glucose (74-99) mg/dL POC Glucose (mg/dL) 132 H 111 H (75-99) mg/dL AST (14-36) U/L ALT (4-34) U/L Total Protein (6.3-8.2) g/dL Albumin (3.5-5.0) g/dL 10/06/21 10/06/21 10/06/21 Range/Units 05:41 07:13 07:13 RBC 2.73 L (3.80-5.40) m/uL Hgb 8.4 L (11.4-16.0) gm/dL Hct 27.7 L (34.0-46.0) % MCV 101.3 H (80.0-100.0) fL MCHC 30.2 L (31.0-37.0) g/dL ABG pH (7.35-7.45) ABG HCO3 (21-25) mmol/L ABG Total CO2 (19-24) mmol/L ABG O2 Saturation (94-97) % Creatinine 0.35 L (0.52-1.04) mg/dL Glucose 110 H (74-99) mg/dL POC Glucose (mg/dL) 112 H (75-99) mg/dL AST 91 H (14-36) U/L ALT 115 H (4-34) U/L Total Protein 5.8 L (6.3-8.2) g/dL Albumin 2.5 L (3.5-5.0) g/dL 10/06/21 Range/Units 11:52 RBC (3.80-5.40) m/uL Hgb (11.4-16.0) gm/dL Hct (34.0-46.0) % MCV (80.0-100.0) fL MCHC (31.0-37.0) g/dL ABG pH (7.35-7.45) ABG HCO3 (21-25) mmol/L ABG Total CO2 (19-24) mmol/L ABG O2 Saturation (94-97) % Creatinine (0.52-1.04) mg/dL Glucose (74-99) mg/dL POC Glucose (mg/dL) 125 H (75-99) mg/dL AST (14-36) U/L ALT (4-34) U/L Total Protein (6.3-8.2) g/dL Albumin (3.5-5.0) g/dL Microbiology - Last 24 Hours (Table) 10/01/21 05:56 Blood Culture - Preliminary Blood No Growth after 120 hours 10/03/21 18:31 Blood Culture - Preliminary Blood No Growth after 48 hours Assessment and Plan (1) Pneumonia Current Visit: Yes Status: Acute Code(s): J18.9 - PNEUMONIA, UNSPECIFIED ORGANISM SNOMED Code(s): 533860556 (2) Allergy to multiple antibiotics Current Visit: Yes Status: Acute Code(s): Z88.1 - ALLERGY STATUS TO OTHER ANTIBIOTIC AGENTS SNOMED Code(s): 656159374 (3) COVID-19 Current Visit: Yes Status: Acute Code(s): U07.1 - COVID-19 SNOMED Code(s): 615108120 Plan: 1-Patient with acute respiratory failure which is multifactorial in this patient who did have a covid19 pneumonia and a concern for possible secondary bacterial pneumonia , patient did have new fever on 10/03/2021 with concern for possible PICC line infection blood cultures were obtained from the PICC line are so far negative, patient UA is negative, patient sputum did grow Radha, could be colonizer versus oropharyngeal candidiasis patient to continue with vancomycin and Eraxis 2-patient with unstageable sacral pressure ulcer as well as unstageable pressure ulcer to the upper back area, local wound care with the medahoney followed by moist dressing and keep the area off the pressure 3-left elbow pressure ulcer stage II with no cellulitis local wound care with a dry with visible dressing daily off the pressure
--- NOTE | 2021-10-07 22:50 | P.PN ---
Subjective Progress Note Date: 10/07/21 Principal diagnosis: Pneumonia pressure ulcer and multiple antibiotic allergies Patient is a 51-year-old female presenting to the hospital on September 10 for mental status changes patient did have a evidence of COVID-19 infection, with respiratory failure requiring intubation also with E. coli UTI and the patient did have multiple antibiotic allergies. The patient is status post tracheostomy and PEG tube placement on 09/23/2021 On today's evaluation that is to to 10/07/2021, patient did have a low-grade fever of 99F, the patient is hemodynamically stable not requiring pressor support, the patient has been switched over to trach collar and is breathing comfortably patient is more awake and alert and did also some simple questions by noding her head, no diarrhea has been reported Objective - Vital Signs Vital signs: Vital Signs Temp 99.4 F 10/07/21 20:00 Pulse 84 10/07/21 21:00 Resp 34 H 10/07/21 21:00 BP 181/104 10/07/21 21:00 Pulse Ox 97 10/07/21 21:00 Intake & Output 10/07/21 10/07/21 10/08/21 06:59 18:59 06:59 Intake Total 902 1004 532 Output Total 541 1625 575 Balance 361 -621 -43 Weight 59.3 kg Intake: IV 570 590 260 .9NS 20 220 240 60 Anidulafungin 100 mg In 100 Sodium Chloride 0.9% 100 ml @ 84 mls/hr IVPB DAILY @1700 [facility] Rx#:[id number] Vancomycin 1,000 mg In 250 250 Sodium Chloride 0.9% 250 ml @ 125 mls/hr IVPB Q12HR [facility] Rx#:[id number] levETIRAcetam IV 1,500 mg 100 100 100 In Saline 1 100ml.bag @ 400 mls/hr IVPB Q12HR [facility] Rx#:[id number] Intake, IV Titration 250 Amount Vancomycin 1,000 mg In 250 Sodium Chloride 0.9% 250 ml @ 125 mls/hr IVPB Q12HR [facility] Rx#:[id number] Tube Feeding 242 264 22 Other 90 150 Output: Urine 540 1625 575 Stool 1 Other: Voiding Method Indwelling Catheter Indwelling Catheter Indwelling Catheter ABP, PAP, CO, CI - Last Documented Arterial Blood Pressure 123/58 - Exam GENERAL DESCRIPTION: Middle-aged male intubated on the vent, no distress. No tachypnea or accessory muscle of respiration use. LUNGS: Unlabored breathing. Decreased breath sound at the base. No wheeze or crackle. HEART: S1, S2, regular rate and rhythm. No loud murmur ABDOMEN: Soft, no tenderness , EXTREMITIES: No edema of feet. - Labs CBC & Chem 7: 10/07/21 08:29 10/07/21 08:29 Labs: Abnormal Lab Results - Last 24 Hours (Table) 10/07/21 10/07/21 10/07/21 Range/Units 00:49 08:29 08:29 RBC 2.56 L (3.80-5.40) m/uL Hgb 8.1 L (11.4-16.0) gm/dL Hct 25.9 L (34.0-46.0) % MCV 101.1 H (80.0-100.0) fL Potassium 3.3 L (3.5-5.1) mmol/L Chloride 108 H (98-107) mmol/L Creatinine 0.34 L (0.52-1.04) mg/dL Glucose 123 H (74-99) mg/dL POC Glucose (mg/dL) 102 H (75-99) mg/dL 10/07/21 10/07/21 Range/Units 11:32 17:35 RBC (3.80-5.40) m/uL Hgb (11.4-16.0) gm/dL Hct (34.0-46.0) % MCV (80.0-100.0) fL Potassium (3.5-5.1) mmol/L Chloride (98-107) mmol/L Creatinine (0.52-1.04) mg/dL Glucose (74-99) mg/dL POC Glucose (mg/dL) 104 H 106 H (75-99) mg/dL Microbiology - Last 24 Hours (Table) 10/03/21 18:31 Blood Culture - Preliminary Blood No Growth after 96 hours 10/01/21 05:56 Blood Culture - Final Blood No Growth after 144 hours Assessment and Plan (1) Pneumonia Current Visit: Yes Status: Acute Code(s): J18.9 - PNEUMONIA, UNSPECIFIED ORGANISM SNOMED Code(s): 934460332 (2) Allergy to multiple antibiotics Current Visit: Yes Status: Acute Code(s): Z88.1 - ALLERGY STATUS TO OTHER ANTIBIOTIC AGENTS SNOMED Code(s): 733980681 (3) COVID-19 Current Visit: Yes Status: Acute Code(s): U07.1 - COVID-19 SNOMED Code(s): 878327723 Plan: 1-patient with unstageable sacral pressure ulcer as well as unstageable pressure ulcer to the upper back area, local wound care with the medahoney followed by moist dressing and keep the area off the pressure, left elbow pressure ulcer stage II with no cellulitis local wound care with a dry with visible dressing daily off the pressure 2-Patient with acute respiratory failure which is multifactorial in this patient who did have a covid19 pneumonia and a concern for possible secondary bacterial pneumonia , patient did have new fever on 10/03/2021 with concern for possible PICC line infection blood cultures were obtained from the PICC line has been negative so far, patient UA is negative, patient sputum did grow Radha, could be colonizer versus oropharyngeal candidiasis patient to continue with vancomycin and Eraxis and will monitor her clinical course closely Time with Patient: Less than 30
[2021-10-07] MEDS: HYDROcodone/APAP 15 ML SOLUTION PO PRN (23:11)
[2021-10-08] MEDS: INSULIN ASPART (NovoLOG) 100 UNIT/ML VIAL SQ SCH ×5 (00:33→23:58)
[2021-10-08] MEDS: HYDROcodone/APAP 15 ML SOLUTION PO PRN ×3 (05:28→20:14)
[2021-10-08 05:29] LABS: Glucose,Whole Blood 106 mg/dL (75-99)
[2021-10-08 06:43] LABS: African American GFR (CKD) >90 (>60 ml/min/1.73 sqM); Anion Gap 6 mmol/L; Blood Urea Nitrogen 9 mg/dL (7-17); Calcium 9.2 mg/dL (8.4-10.2); Carbon Dioxide 28 mmol/L (22-30); Chloride 106 mmol/L (98-107); Glucose 122 mg/dL (74-99); Non-African American GFR(CKD) >90 (>60 ml/min/1.73 sqM); Potassium 3.5 mmol/L (3.5-5.1); Sodium 140 mmol/L (137-145)
[2021-10-08] MEDS ORDERED: POTASSIUM BICARBONATE/CIT AC 20 MEQ TABLET.EFF NG-TUBE SCH (08:00)
[2021-10-08] MEDS: CHOLECALCIFEROL 125 MCG (5000 IU) TABLET PO SCH (08:39)
[2021-10-08] MEDS: APIXABAN 5 MG TAB PO SCH ×2 (08:39→20:14)
[2021-10-08] MEDS: carBAMazepine 200 MG TAB PO SCH ×3 (08:39→21:42)
[2021-10-08] MEDS: METOPROLOL TARTRATE 25 MG TAB PO SCH ×2 (08:39→20:14)
[2021-10-08] MEDS: QUEtiapine 25 MG TAB PO SCH ×2 (08:39→20:14)
[2021-10-08] MEDS: AMIODARONE 200 MG TAB PO SCH (08:39)
[2021-10-08] MEDS: PANTOPRAZOLE 40 MG/10 ML VIAL IV SCH (08:40)
[2021-10-08] MEDS: levETIRAcetam IV 1,500 MG in SALINE 1 100ML.BAG IVPB SCH ×2 (08:40→20:14)
[2021-10-08] MEDS: VANCOMYCIN 1,000 MG in SODIUM CHLORIDE 0.9% 250 ML IVPB SCH ×2 (08:40→20:14)
[2021-10-08] MEDS: CHLORHEXIDINE GLUCONATE 15 ML CUP MUCOUS MEM SCH ×2 (08:41→20:14)
--- NOTE | 2021-10-08 10:11 | XR ---
EXAMINATION TYPE: XR chest 1V portable DATE OF EXAM: 10/08/2021 COMPARISON: Chest x-ray 10/06/2021 HISTORY: Covid 19 TECHNIQUE: Single frontal view of the chest is obtained. FINDINGS: Right-sided PICC line shows the tip in the right atrium. Tracheostomy tube is overlying th e tracheal air column. Generators present in the left pectoral region, is a lead in the right ventric le. No evident pneumothorax. Retrocardiac density persists, the left hemidiaphragm is obscured, perih ilar density is questioned although the patient is rotated. There are overlying artifacts. Cardiac me diastinal silhouette likely stable accounting for differences in technique. IMPRESSION: Correlate for pneumonia, difficult to exclude effusion. Rotated exam.
[2021-10-08 10:18] LABS: Allen Test Performed? Yes
[2021-10-08 10:33] LABS: ABG Base Excess 5.6 mmol/L; ABG HCO3 30 mmol/L (21-25); ABG Oxygen Saturation 92.2 % (94-97); ABG PCO2 44 mmHg (35-45); ABG PH 7.44 (7.35-7.45); ABG PO2 70 mmHg (83-108); ABG TCO2 31 mmol/L (19-24)
[2021-10-08 11:33] LABS: Glucose,Whole Blood 135 mg/dL (75-99)
--- NOTE | 2021-10-08 11:59 | P.PN ---
Subjective Progress Note Date: 10/08/21 Principal diagnosis: Acute COVID-19 pneumonia with acute hypoxic respiratory failure and altered mental status. 10/04/2021, the patient is being seen in follow-up in the intensive care unit. This morning, the patient remains off sedation. She is awake and alert. She remains on a pressure control mode of mechanical ventilation. She is at the rate of 16 with a pressure control of 18 with an FiO2 of 40% with a PEEP of 5. No blood gases available from today. Chest x-ray showing stable findings with a persistent left lower lobe effusion/consolidation. The patient started spiking temperature as of yesterday. T-max was at 11.9. She is still febrile with a temperature 100.1. I was not informed of this changes and the focal went right away to infectious disease. The patient was given 2 sets of blood cultures. Noted the patient was already receiving a combination of vancomycin and Eraxis. That is his sputum culture is still showing Radha. The patient has a PICC line in her right upper extremity. The exit site is dry clean and intact. No diarrhea. No other clear source of infection at this point in time. Infections on the case. Pro-calcitonin level will be checked. She remains hemodynamically stable. She is on no pressors. Cardiac rhythm is sinus with frequent PACs and PVCs. Fluid balance has been +1.2 L over the past 24 hours. Note that the patient's weaning parameters of the persistently weak. Nevertheless, she was able to tolerate a full total of 4 hours a pressure support mode of mechanical ventilation with a pressure support of 15 and a PEEP of 5 Reevaluated today on 10/05/2021, patient remains in the ICU, intubated, mechanically ventilated, she is extremely weak, but awake, follows all instructions, she is on pressure control mode of mechanical ventilation, with a pressure control of 16, inspiratory time of 0.9, FiO2 40%, PEEP of 5, her peak airway pressure is 25 plateau pressure is 13. ABG today showed a pO2 of 95 pCO2 of 38 pH of 7.50 however the patient is noted to be pulling less and less tidal volume, hence I increased her pressure control to 22, and she seems to be much better with a tidal volume up to 350 and sometimes 400s range. Patient remains on tube feeding at 35 mL/h using vital AF. Her IV fluid is 0.9 normal saline at 50 mL per hour. Patient is not requiring any pressors, she is not on any sedation, and I am empty to consider the patient for trial of pressure support and CPAP if possible. Again the patient is generally weak, but will give her trials of weaning hopefully beginning tomorrow. CBC today is relatively normal hemoglobin is 8.1. Electrolytes are normal renal profile is normal chest x-ray yesterday showed chronic emphysematous changes, chronic left basilar opacity demonstrated. And no acute change otherwise Reevaluated today on 10/06/2021, remains in the ICU, intubated and mechanically ventilated. Patient was given a trial of pressure support and CPAP yesterday she was on pressure support of 14 and CPAP of 5, tolerated that for about 5-6 hours. Patient was later noted to desaturate, and she was gagging on the tracheostomy tube, becoming a bit agitated, hence she was placed back on the pressure control mode of mechanical ventilation, she is now on pressure control of 22 inspiratory time of 0.9 seconds FiO2 40% PEEP of 5. ABG today showed a pO2 of 105 pCO2 of 36 pH of 7.50. Her peak airway pressure is 28 plateau pressure is 22. Patient is on tube feeding, she is receiving vital AF 42 mL per hour. My plan today is to place the patient back on pressure support of 14 and CPAP, with FiO2 of 40%. Patient is not requiring any sedation, she is not on any major drips. Her IV fluid is 0.9 normal saline at 50 mL per hour. Mentation seems to be much improved compared to baseline, and she continues to do well mentally over the last 24 hours. She is alert, appropriate, follows all simple instructions. Chest x-ray showed chronic changes and chronic left basila r opacity. Not much different compared to the last few days. WBC count is 5.6 hemoglobin is 8.4 electrolytes are normal renal profile is normal ABG showed a pO2 of 105 pCO2 of 36 pH of 7.50. Reevaluated today on 10/07/2021, patient remains in the ICU, intubated and mechanically ventilated. Yesterday the patient went on pressure support 14 and CPAP, and this was tolerated for about 12 hours. Today I plan to place the patient on trach collar. Presently she is on pressure control mode of mechan ical ventilation with a pressure control set at 22 TI of 0.9 FiO2 40% PEEP of 5. Rate is 36. No ABG was done today. Her CBC is relatively unremarkable electrolytes are normal except for low potassium of 3.3 being corrected as per protocol. Patient remains on enteral feeding. No chest x-ray was done today. Patient remains on amiodarone, Eraxis, Eliquis, Tegretol, COVID-19 cocktail, Keppra, metoprolol, Protonix, vancomycin, Seroquel, Reevaluated today on 10/08/2021, patient remains in the ICU, she has been on trach collar now for the last 2 days, seems to be tolerating trach collar quite well. However this morning the patient seems to be a bit restless, tachypnea, ABG was reasonable with a pO2 of 70 pCO2 44 pH of 7.44 and this was on 35% FiO2. But considering the patient seems to be a bit restless, Iressa the patient back on her previous mode of mechanical ventilation. Patient is back on pressure control mode of mechanical ventilation, and seems to be doing a bit better with a pressure control mode of ventilation. We will address the patient possibly for the rest of the day, and place her back on trach collar again. Labs today are unremarkable including electrolytes, renal profile, ABG as noted above. Patient remains on enteral feeding. Remained generally weak and debilitated. Objective - Vital Signs Vital signs: Vital Signs Temp 98.2 F 10/08/21 08:00 Pulse 80 10/08/21 10:00 Resp 36 H 10/08/21 10:00 BP 185/98 10/08/21 10:00 Pulse Ox 90 L 10/08/21 10:00 Intake & Output 10/07/21 10/08/21 10/08/21 18:59 06:59 18:59 Intake Total 1004 1292 728 Output Total 1625 1450 650 Balance -621 -158 78 Intake: IV 590 710 550 .9NS 20 240 510 200 Anidulafungin 100 mg In 100 Sodium Chloride 0.9% 100 ml @ 84 mls/hr IVPB DAILY @1700 [facility] Rx#:[id number] Vancomycin 1,000 mg In 250 250 Sodium Chloride 0.9% 250 ml @ 125 mls/hr IVPB Q12HR [facility] Rx#:[id number] levETIRAcetam IV 1,500 mg 100 100 100 In Saline 1 100ml.bag @ 400 mls/hr IVPB Q12HR [facility] Rx#:[id number] Intake, IV Titration 250 Amount Vancomycin 1,000 mg In 250 Sodium Chloride 0.9% 250 ml @ 125 mls/hr IVPB Q12HR [facility] Rx#:[id number] Tube Feeding 264 242 88 Other 150 90 90 Output: Urine 1625 1450 650 Other: Voiding Method Indwelling Catheter Indwelling Catheter Indwelling Catheter ABP, PAP, CO, CI - Last Documented Arterial Blood Pressure 123/58 - Exam Physical Exam: Revealed a 51-year-old female intubated, on a T piece at 35% FiO2. Head: Atraumatic, normocephalic, tracheostomy tube is in place. HEENT:[Neck is supple.] [No neck masses.] [No thyromegaly.] [No JVD.] Chest: Symmetrical chest expansion, crackles at the bases. Psychiatric: Normal mood, normal affect, normal mental status. Cardiac Exam: [Normal S1 and S2, no S3 gallop, no murmur.] Abdomen: [Soft, nontender, no megaly, no rebound, no guarding, normal bowel sounds.] PEG tube is intact. Extremities: [No clubbing, no edema, no cyanosis.] Skin: Patient has chronic coccygeal ulceration/pressure ulcer. Neurological Exam: Patient is noted to be a bit restless, Remains weak otherwise unremarkable. - Labs CBC & Chem 7: 10/07/21 08:29 10/08/21 06:00 Labs: Abnormal Lab Results - Last 24 Hours (Table) 10/07/21 10/08/21 10/08/21 Range/Units 17:35 05:27 06:00 ABG pO2 (83-108) mmHg ABG HCO3 (21-25) mmol/L ABG Total CO2 (19-24) mmol/L ABG O2 Saturation (94-97) % Creatinine 0.34 L (0.52-1.04) mg/dL Glucose 122 H (74-99) mg/dL POC Glucose (mg/dL) 106 H 106 H (75-99) mg/dL 10/08/21 10/08/21 Range/Units 10:30 11:31 ABG pO2 70 L (83-108) mmHg ABG HCO3 30 H (21-25) mmol/L ABG Total CO2 31 H (19-24) mmol/L ABG O2 Saturation 92.2 L (94-97) % Creatinine (0.52-1.04) mg/dL Glucose (74-99) mg/dL POC Glucose (mg/dL) 135 H (75-99) mg/dL Microbiology - Last 24 Hours (Table) 10/03/21 18:31 Blood Culture - Preliminary Blood No Growth after 96 hours 10/01/21 05:56 Blood Culture - Final Blood No Growth after 144 hours Assessment and Plan Assessment: Impression: Acute hypoxic respiratory failure secondary to COVID-19 pneumonia, intubated on 09/11/2021, status post tracheostomy and PEG tube placement on 09/23, presently on pressure control mode of mechanical ventilation, patient has been tolerating pressure support and CPAP over the last 2 days, patient has been tolerating T piece weaning. for over 24 hours, however considering the patient is getting a bit agitated and restless will be placed back on pressure control mode of mechanical ventilation today and possibly back to T piece later today. Altered mental status, acute toxic metabolic encephalopathy. No acute CVA noted on brain CT. significantly improved. Acute COVID-19 pneumonia History of seizure activity. And pain on seizure meds. Previous history of pulmonary embolism, on long-term treatment with Eliquis. Paroxysmal atrial fibrillation Cardiomyopathy and LV dysfunction with ejection fraction of 30-35%. History of pacemaker implantation. 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 coli urinary tract infection History of psoriasis Sacral /coccygeal decubitus ulcer Recommendation: Continue ventilatory support Continue daily trials of weaning on TPs or trach collar. Continue supportive care measures Continue Lovenox, for DVT prophylaxis. Continue Keppra And Tegretol. continue enteral feeding , via PEG tube. Continue physical therapy. continue to monitor in the ICU Hoping to get the patient to a rehab facility as soon as possible. Prognosis remains relatively guarded. Critical care time is over 30 minutes Time with Patient: Greater than 30
--- NOTE | 2021-10-08 12:34 | P.PN ---
Subjective Progress Note Date: 10/08/21 CHIEF COMPLAINT: COVID-19 pneumonia HISTORY OF PRESENT ILLNESS: Patient remains in the ICU on mechanical ventilation. She is undergoing daily trials of weaning with trach collar or trach piece. Patient is status post tracheostomy and PEG tube placement on 09/23/21. Patient is tolerating tube feedings. PHYSICAL EXAM: VITAL SIGNS: Reviewed. GENERAL:no acute distress. HEENT: Moist buccal mucosa. Head is atraumatic, normocephalic. Tracheostomy site clean and intact. ABDOMEN: Soft. Nondistended. PEG tube site clean dry and intact NEUROLOGIC: awake ASSESSMENT: 1. Acute hypoxic respiratory failure secondary to COVID-19 pneumonia requiring mechanical ventilation 2. Severe protein calorie malnutrition PLAN: -Continue tube feedings -Continue ICU management -Continue supportive care Physician Passenger Barge Master note has been reviewed by physician. Signing provider agrees with the documented findings, assessment, and plan of care. Objective - Vital Signs Vital signs: Vital Signs Temp 98.2 F 10/08/21 08:00 Pulse 80 10/08/21 10:00 Resp 36 H 10/08/21 10:00 BP 185/98 10/08/21 10:00 Pulse Ox 90 L 10/08/21 10:00 Intake & Output 10/07/21 10/08/21 10/08/21 18:59 06:59 18:59 Intake Total 1004 1292 728 Output Total 1625 1450 650 Balance -621 -158 78 Intake: IV 590 710 550 .9NS 20 240 510 200 Anidulafungin 100 mg In 100 Sodium Chloride 0.9% 100 ml @ 84 mls/hr IVPB DAILY @1700 [facility] Rx#:[id number] Vancomycin 1,000 mg In 250 250 Sodium Chloride 0.9% 250 ml @ 125 mls/hr IVPB Q12HR [facility] Rx#:[id number] levETIRAcetam IV 1,500 mg 100 100 100 In Saline 1 100ml.bag @ 400 mls/hr IVPB Q12HR [facility] Rx#:[id number] Intake, IV Titration 250 Amount Vancomycin 1,000 mg In 250 Sodium Chloride 0.9% 250 ml @ 125 mls/hr IVPB Q12HR [facility] Rx#:[id number] Tube Feeding 264 242 88 Other 150 90 90 Output: Urine 1625 1450 650 Other: Voiding Method Indwelling Catheter Indwelling Catheter Indwelling Catheter ABP, PAP, CO, CI - Last Documented Arterial Blood Pressure 123/58 - Labs CBC & Chem 7: 10/07/21 08:29 10/08/21 06:00 Labs: Abnormal Lab Results - Last 24 Hours (Table) 10/07/21 10/08/21 10/08/21 Range/Units 17:35 05:27 06:00 ABG pO2 (83-108) mmHg ABG HCO3 (21-25) mmol/L ABG Total CO2 (19-24) mmol/L ABG O2 Saturation (94-97) % Creatinine 0.34 L (0.52-1.04) mg/dL Glucose 122 H (74-99) mg/dL POC Glucose (mg/dL) 106 H 106 H (75-99) mg/dL 10/08/21 10/08/21 Range/Units 10:30 11:31 ABG pO2 70 L (83-108) mmHg ABG HCO3 30 H (21-25) mmol/L ABG Total CO2 31 H (19-24) mmol/L ABG O2 Saturation 92.2 L (94-97) % Creatinine (0.52-1.04) mg/dL Glucose (74-99) mg/dL POC Glucose (mg/dL) 135 H (75-99) mg/dL Microbiology - Last 24 Hours (Table) 10/03/21 18:31 Blood Culture - Preliminary Blood No Growth after 96 hours 10/01/21 05:56 Blood Culture - Final Blood No Growth after 144 hours
[2021-10-08] MEDS: CLEVIDIPINE BUTYRATE 25 MG in EMPTY BAG 1 BAG IV SCH (15:07)
--- NOTE | 2021-10-08 15:55 | P.PN ---
<Godwin, - Last Filed: 10/08/21 15:45> Subjective Progress Note Date: 10/08/21 Principal diagnosis: Altered mental status Patient is a 51-year-old female presented to the emergency room with altered mental status, COVID-19 pneumonia, UTI, seizures and possible stroke. UTI and pneumonia have been treated, and sepsis resolved. 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 Patient has been in the hospital since September 10, 2021 and has had extensive evaluations and treatment. Patient has been followed by multiple consultants including intensive care/pulmonary, neurology, and surgical services. Hospitalists have been providing coverage from 09/10/2021 through 10/05/2021. Patient continues to require mechanical ventilation. Patient is status post PEG tube placement and tracheotomy placement. 10/06/21 Patient was seen and examined at bedside in the ICU. Continues to require mechanical ventilation via tracheostomy. FiO2 40%, PEEP 5, oxygen saturation 96%, blood pressure 149/82. She is alert, responds to name, and follows simple commands. Denies any acute symptoms, unable to speak, replies by shaking her head yes or no. Left-sided paralysis, right-sided weakness able to grasp fingers and wiggle toes on the right. White blood cell count 5.6, kidney fun ction improved the BUN 15, creatinine 0.3, liver enzymes continue to be elevated but improving. Plan was to [facility] to [facility], insurance denied, awaiting clearance from social work. 10/07/21 Patient was seen and examined at bedside in ICU. Patient is resting comfortably, in no acute distress. Continues to require mechanical ventilation via tracheostomy. FiO2 40%, PEEP 5, oxygen saturation 95%, blood pressure 119/74. Patient is alert and oriented to self, able to follow simple commands. Continued left-sided paralysis, right-sided weakness. Potassium 3.3, was treated according to protocol. Kidney function remains stable, white count 7.1 today. Still waiting for insurance appeal for transfer to long-term acute care. 10/08/21 patient was seen and examined in ICU. Was up in the chair via rebecca lift, in mild distress. Oxygen saturation was declining to 70% while on trach collar. Patient was trying to say that she can't breathe and she needs help. Nurse and respiratory therapist assisted patient back on mechanical ventilation at previous settings, with improvement of oxygen saturation. Patient was alert and oriented to self.continued right-sided weakness and left-sided paralysis.potassium improved to 3.5.still awaiting insurance appeal for transfer to long-term [facility] Objective - Vital Signs Vital signs: Vital Signs Temp 98.2 F 10/08/21 12:00 Pulse 118 H 10/08/21 15:00 Resp 15 10/08/21 15:00 BP 109/67 10/08/21 15:00 Pulse Ox 95 10/08/21 15:00 Intake & Output 10/07/21 10/08/21 10/08/21 18:59 06:59 18:59 Intake Total 1004 1292 1118 Output Total 1625 1450 990 Balance -621 -158 128 Intake: IV 590 710 800 .9NS 20 240 510 450 Anidulafungin 100 mg In 100 Sodium Chloride 0.9% 100 ml @ 84 mls/hr IVPB DAILY @1700 [facility] Rx#:[id number] Vancomycin 1,000 mg In 250 250 Sodium Chloride 0.9% 250 ml @ 125 mls/hr IVPB Q12HR [facility] Rx#:[id number] levETIRAcetam IV 1,500 mg 100 100 100 In Saline 1 100ml.bag @ 400 mls/hr IVPB Q12HR [facility] Rx#:[id number] Intake, IV Titration 250 Amount Vancomycin 1,000 mg In 250 Sodium Chloride 0.9% 250 ml @ 125 mls/hr IVPB Q12HR [facility] Rx#:[id number] Tube Feeding 264 242 198 Other 150 90 120 Output: Urine 1625 1450 990 Other: Voiding Method Indwelling Catheter Indwelling Catheter Indwelling Catheter ABP, PAP, CO, CI - Last Documented Arterial Blood Pressure 123/58 - Constitutional General appearance: Present: average body habitus, cooperative, severe distress - EENT Eyes: Present: EOMI, PERRLA ENT: Present: normal oropharynx Ears: bilateral: normal - Neck Details: tracheostomy in place - Respiratory Respiratory: bilateral: diminished - Cardiovascular Heart rate: 140 Heart sounds: normal: S1, S2 - Peripheral pulses radial pulse Peripheral Pulses: bilateral: Normal - Gastrointestinal Gastrointestinal Comment(s): PEG tube in place General gastrointestinal: Present: normal bowel sounds, soft - Integumentary Integumentary: Present: normal, normal turgor - Neurologic Neurologic: Present: focal deficits - Musculoskeletal Musculoskeletal: Present: right sided weakness, left sided weakness (paralysis) - Psychiatric Psychiatric: Present: A&O x's 3, appropriate affect - Allied health notes Allied health notes reviewed: nursing - Labs CBC & Chem 7: 10/07/21 08:29 10/08/21 06:00 Labs: Abnormal Lab Results - Last 24 Hours (Table) 10/07/21 10/08/21 10/08/21 Range/Units 17:35 05:27 06:00 ABG pO2 (83-108) mmHg ABG HCO3 (21-25) mmol/L ABG Total CO2 (19-24) mmol/L ABG O2 Saturation (94-97) % Creatinine 0.34 L (0.52-1.04) mg/dL Glucose 122 H (74-99) mg/dL POC Glucose (mg/dL) 106 H 106 H (75-99) mg/dL 10/08/21 10/08/21 Range/Units 10:30 11:31 ABG pO2 70 L (83-108) mmHg ABG HCO3 30 H (21-25) mmol/L ABG Total CO2 31 H (19-24) mmol/L ABG O2 Saturation 92.2 L (94-97) % Creatinine (0.52-1.04) mg/dL Glucose (74-99) mg/dL POC Glucose (mg/dL) 135 H (75-99) mg/dL Microbiology - Last 24 Hours (Table) 10/03/21 18:31 Blood Culture - Preliminary Blood No Growth after 96 hours Assessment and Plan Assessment: Altered mental status secondary to metabolic encephalopathy, ruled out intercranial lesions Acute hypoxic respiratory failure secondary to COVID-19 pneumonia, still requiring mechanical ventilation Status post tracheostomy and PEG tube placement Sepsis secondary to UTI and COVID-19 pneumonia, resolved with treatment Breakthrough seizure, history of previous seizures Unstageable sacral pressure ulcer Cardiomyopathy, EF of 30-35% Acute kidney injury, improved with treatment History of coronary artery disease history of pulmonary embolism History 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 left foot drop Status post permanent pacemaker History of glaucoma but surgical intervention Full code Plan: was on trach collar for 24 hours, became hypoxic and required mechanical ventilation again, following pulmonary recommendation Antibiotic, vanco, and antifungal treatment for pneumonia per infectious disease recommendations Continue tube feedings, following dietitian recommendations Continue current medication regimen Continue monitoring her mental status for any changes Continue Wound care for unstageable sacral pressure wound Still waiting for insurance approval for transfer to long-term acute care Further recommendations to come based on patient's clinical course Time with Patient: Greater than 30 <Garth Auguste - Last Filed: 10/22/21 19:49> Subjective I have personally seen and examined the patient, reviewed the documentation and agree with the assessment and plan as written. Number of minutes spent on the visit: Greater than 15. Objective - Vital Signs Vital signs: Vital Signs Temp 98.0 F 10/22/21 12:17 Pulse 94 10/22/21 12:17 Resp 18 10/22/21 12:17 BP 114/64 10/22/21 12:17 Pulse Ox 95 10/22/21 19:36 Intake & Output 10/22/21 10/22/21 10/23/21 06:59 18:59 06:59 Intake Total 1200 960 Output Total 1 1 Balance 1199 959 Weight 55 kg Intake: Oral 0 Tube Feeding 1200 960 Output: Stool 1 1 Other: Voiding Method Diaper Bedpan Diaper # Voids 2 1 # Bowel Movements 1 ABP, PAP, CO, CI - Last Documented Arterial Blood Pressure 123/58 - Labs CBC & Chem 7: 10/22/21 06:37 10/22/21 06:37 Labs: Abnormal Lab Results - Last 24 Hours (Table) 10/21/21 10/22/21 10/22/21 Range/Units 23:49 06:37 06:37 RBC 2.92 L (4.10-5.20) X 10*6/uL Hgb 8.8 L (12.0-15.0) g/dL Hct 29.6 L (37.2-46.3) % MCV 101.4 H (80.0-97.0) fL MCHC 29.7 L (32.0-37.0) g/dL RDW 15.2 H (11.5-14.5) % Eosinophils # 0.45 H (0.04-0.35) X 10*3/uL Carbon Dioxide 27.6 H (20.0-27.5) mmol/L BUN 34.5 H (9.0-27.0) mg/dL Creatinine 0.5 L (0.6-1.5) mg/dL BUN/Creatinine Ratio 69.00 H (12.00-20.00) Ratio POC Glucose (mg/dL) 130 H (75-99) mg/dL 10/22/21 10/22/21 Range/Units 11:56 18:02 RBC (4.10-5.20) X 10*6/uL Hgb (12.0-15.0) g/dL Hct (37.2-46.3) % MCV (80.0-97.0) fL MCHC (32.0-37.0) g/dL RDW (11.5-14.5) % Eosinophils # (0.04-0.35) X 10*3/uL Carbon Dioxide (20.0-27.5) mmol/L BUN (9.0-27.0) mg/dL Creatinine (0.6-1.5) mg/dL BUN/Creatinine Ratio (12.00-20.00) Ratio POC Glucose (mg/dL) 137 H 108 H (75-99) mg/dL
[2021-10-08] MEDS: ANIDULAFUNGIN 100 MG in SODIUM CHLORIDE 0.9% 100 ML IVPB SCH (16:27)
[2021-10-08 17:49] LABS: Glucose,Whole Blood 100 mg/dL (75-99)
[2021-10-08] MEDS ORDERED: SODIUM CHLORIDE 0.9% 1,000 ML IV ONE (18:59)
[2021-10-08] MEDS: SODIUM CHLORIDE 0.9% 1,000 ML IV SCH (19:04)
[2021-10-08 21:08] LABS: Magnesium 1.4 mg/dL (1.6-2.3); Potassium 3.1 mmol/L (3.5-5.1)
--- NOTE | 2021-10-08 21:21 | XR ---
EXAMINATION TYPE: XR chest 1V DATE OF EXAM: 10/08/2021 COMPARISON: 10/08/2021 HISTORY: Covid TECHNIQUE: Single frontal view of the chest is obtained. FINDINGS: Tracheostomy tube is 3.4 cm above the polo. There is a PICC line entering the right/R ju nction. Pacemaker. There is persistent retrocardiac. Is mild interstitial opacity left upper lobe. The right lung is ess entially clear. There is no pneumothorax. Heart size normal. IMPRESSION: Acute cardiopulmonary disease as described above with no significant interval change.
[2021-10-08 21:41] LABS: Basophils % (A) 0 %; Eosinophils # (A) 0.1 k/uL (0-0.7); Eosinophils % (A) 1 %; HCT 23.9 % (34.0-46.0); HGB 7.5 gm/dL (11.4-16.0); Hypochromasia Slight; Lymphocytes # (A) 0.9 k/uL (1.0-4.8); Lymphocytes % (A) 12 %; MCH 31.4 pg (25.0-35.0); MCHC 31.3 g/dL (31.0-37.0); MCV 100.2 fL (80.0-100.0); Macrocytosis Slight; Mean Platelet Volume 7.7; Monocytes # (A) 0.3 k/uL (0-1.0); Monocytes % (A) 4 %; Neutrophils % (A) 82 %; Platelet Count 331 k/uL (150-450); RBC 2.39 m/uL (3.80-5.40); RDW 14.5 % (11.5-15.5); WBC 7.3 k/uL (3.8-10.6)
[2021-10-08] MEDS: MAGNESIUM SULFATE-D5W PMX 1 GM in DEXTROSE/WATER 1 100ML.BAG IVPB SCH ×3 (21:41→23:58)
[2021-10-08] MEDS: POTASSIUM BICARBONATE/CIT AC 20 MEQ TABLET.EFF NG-TUBE SCH ×2 (21:41→22:51)
[2021-10-08 21:47] LABS: ALT 75 U/L (4-34); AST 40 U/L (14-36); African American GFR (CKD) >90 (>60 ml/min/1.73 sqM); Albumin 2.5 g/dL (3.5-5.0); Alkaline Phosphatase 76 U/L (38-126); Anion Gap 7 mmol/L; Blood Urea Nitrogen 10 mg/dL (7-17); Calcium 7.9 mg/dL (8.4-10.2); Carbon Dioxide 25 mmol/L (22-30); Chloride 106 mmol/L (98-107); Glucose 116 mg/dL (74-99); Non-African American GFR(CKD) >90 (>60 ml/min/1.73 sqM); Sodium 138 mmol/L (137-145); Total Bilirubin 0.5 mg/dL (0.2-1.3); Total Protein 5.5 g/dL (6.3-8.2)
[2021-10-09 05:45] LABS: Glucose,Whole Blood 110 mg/dL (75-99)
[2021-10-09] MEDS: INSULIN ASPART (NovoLOG) 100 UNIT/ML VIAL SQ SCH ×3 (05:49→18:12)
[2021-10-09 06:00] LABS: ABG Base Excess 2.9 mmol/L; ABG HCO3 25 mmol/L (21-25); ABG PCO2 31 mmHg (35-45); ABG PH 7.52 (7.35-7.45); ABG PO2 131 mmHg (83-108); Allen Test Performed? Yes
[2021-10-09] MEDS: SODIUM CHLORIDE 0.9% 1,000 ML IV SCH ×2 (06:04→16:46)
[2021-10-09 06:42] LABS: African American GFR (CKD) >90 (>60 ml/min/1.73 sqM); Anion Gap 5 mmol/L; Blood Urea Nitrogen 12 mg/dL (7-17); Calcium 8.2 mg/dL (8.4-10.2); Carbon Dioxide 25 mmol/L (22-30); Chloride 106 mmol/L (98-107); Glucose 100 mg/dL (74-99); Magnesium 2.4 mg/dL (1.6-2.3); Non-African American GFR(CKD) >90 (>60 ml/min/1.73 sqM); Potassium 3.6 mmol/L (3.5-5.1); Sodium 136 mmol/L (137-145)
[2021-10-09] MEDS ORDERED: POTASSIUM BICARBONATE/CIT AC 20 MEQ TABLET.EFF NG-TUBE SCH (08:00)
[2021-10-09] MEDS: AMIODARONE 200 MG TAB PO SCH (08:40)
[2021-10-09] MEDS: APIXABAN 5 MG TAB PO SCH ×2 (08:40→20:10)
[2021-10-09] MEDS: PANTOPRAZOLE 40 MG/10 ML VIAL IV SCH (08:40)
[2021-10-09] MEDS: levETIRAcetam IV 1,500 MG in SALINE 1 100ML.BAG IVPB SCH ×2 (08:40→20:10)
[2021-10-09] MEDS: METOPROLOL TARTRATE 25 MG TAB PO SCH ×2 (08:40→20:09)
[2021-10-09] MEDS: CHLORHEXIDINE GLUCONATE 15 ML CUP MUCOUS MEM SCH ×2 (08:40→20:10)
[2021-10-09] MEDS: VANCOMYCIN 1,000 MG in SODIUM CHLORIDE 0.9% 250 ML IVPB SCH ×2 (08:40→20:10)
[2021-10-09] MEDS: QUEtiapine 25 MG TAB PO SCH ×2 (08:40→20:09)
[2021-10-09] MEDS: carBAMazepine 200 MG TAB PO SCH ×3 (08:40→21:01)
[2021-10-09] MEDS: CHOLECALCIFEROL 125 MCG (5000 IU) TABLET PO SCH (08:41)
[2021-10-09 11:34] LABS: Glucose,Whole Blood 116 mg/dL (75-99)
--- NOTE | 2021-10-09 13:06 | P.PN ---
Subjective Progress Note Date: 10/09/21 Principal diagnosis: Acute COVID-19 pneumonia with acute hypoxic respiratory failure and altered mental status. 10/04/2021, the patient is being seen in follow-up in the intensive care unit. This morning, the patient remains off sedation. She is awake and alert. She remains on a pressure control mode of mechanical ventilation. She is at the rate of 16 with a pressure control of 18 with an FiO2 of 40% with a PEEP of 5. No blood gases available from today. Chest x-ray showing stable findings with a persistent left lower lobe effusion/consolidation. The patient started spiking temperature as of yesterday. T-max was at 11.9. She is still febrile with a temperature 100.1. I was not informed of this changes and the focal went right away to infectious disease. The patient was given 2 sets of blood cultures. Noted the patient was already receiving a combination of vancomycin and Eraxis. That is his sputum culture is still showing Radha. The patient has a PICC line in her right upper extremity. The exit site is dry clean and intact. No diarrhea. No other clear source of infection at this point in time. Infections on the case. Pro-calcitonin level will be checked. She remains hemodynamically stable. She is on no pressors. Cardiac rhythm is sinus with frequent PACs and PVCs. Fluid balance has been +1.2 L over the past 24 hours. Note that the patient's weaning parameters of the persistently weak. Nevertheless, she was able to tolerate a full total of 4 hours a pressure support mode of mechanical ventilation with a pressure support of 15 and a PEEP of 5 Reevaluated today on 10/05/2021, patient remains in the ICU, intubated, mechanically ventilated, she is extremely weak, but awake, follows all instructions, she is on pressure control mode of mechanical ventilation, with a pressure control of 16, inspiratory time of 0.9, FiO2 40%, PEEP of 5, her peak airway pressure is 25 plateau pressure is 13. ABG today showed a pO2 of 95 pCO2 of 38 pH of 7.50 however the patient is noted to be pulling less and less tidal volume, hence I increased her pressure control to 22, and she seems to be much better with a tidal volume up to 350 and sometimes 400s range. Patient remains on tube feeding at 35 mL/h using vital AF. Her IV fluid is 0.9 normal saline at 50 mL per hour. Patient is not requiring any pressors, she is not on any sedation, and I am empty to consider the patient for trial of pressure support and CPAP if possible. Again the patient is generally weak, but will give her trials of weaning hopefully beginning tomorrow. CBC today is relatively normal hemoglobin is 8.1. Electrolytes are normal renal profile is normal chest x-ray yesterday showed chronic emphysematous changes, chronic left basilar opacity demonstrated. And no acute change otherwise Reevaluated today on 10/06/2021, remains in the ICU, intubated and mechanically ventilated. Patient was given a trial of pressure support and CPAP yesterday she was on pressure support of 14 and CPAP of 5, tolerated that for about 5-6 hours. Patient was later noted to desaturate, and she was gagging on the tracheostomy tube, becoming a bit agitated, hence she was placed back on the pressure control mode of mechanical ventilation, she is now on pressure control of 22 inspiratory time of 0.9 seconds FiO2 40% PEEP of 5. ABG today showed a pO2 of 105 pCO2 of 36 pH of 7.50. Her peak airway pressure is 28 plateau pressure is 22. Patient is on tube feeding, she is receiving vital AF 42 mL per hour. My plan today is to place the patient back on pressure support of 14 and CPAP, with FiO2 of 40%. Patient is not requiring any sedation, she is not on any major drips. Her IV fluid is 0.9 normal saline at 50 mL per hour. Mentation seems to be much improved compared to baseline, and she continues to do well mentally over the last 24 hours. She is alert, appropriate, follows all simple instructions. Chest x-ray showed chronic changes and chronic left basila r opacity. Not much different compared to the last few days. WBC count is 5.6 hemoglobin is 8.4 electrolytes are normal renal profile is normal ABG showed a pO2 of 105 pCO2 of 36 pH of 7.50. Reevaluated today on 10/07/2021, patient remains in the ICU, intubated and mechanically ventilated. Yesterday the patient went on pressure support 14 and CPAP, and this was tolerated for about 12 hours. Today I plan to place the patient on trach collar. Presently she is on pressure control mode of mechan ical ventilation with a pressure control set at 22 TI of 0.9 FiO2 40% PEEP of 5. Rate is 36. No ABG was done today. Her CBC is relatively unremarkable electrolytes are normal except for low potassium of 3.3 being corrected as per protocol. Patient remains on enteral feeding. No chest x-ray was done today. Patient remains on amiodarone, Eraxis, Eliquis, Tegretol, COVID-19 cocktail, Keppra, metoprolol, Protonix, vancomycin, Seroquel, Reevaluated today on 10/08/2021, patient remains in the ICU, she has been on trach collar now for the last 2 days, seems to be tolerating trach collar quite well. However this morning the patient seems to be a bit restless, tachypnea, ABG was reasonable with a pO2 of 70 pCO2 44 pH of 7.44 and this was on 35% FiO2. But considering the patient seems to be a bit restless, Iressa the patient back on her previous mode of mechanical ventilation. Patient is back on pressure control mode of mechanical ventilation, and seems to be doing a bit better with a pressure control mode of ventilation. We will address the patient possibly for the rest of the day, and place her back on trach collar again. Labs today are unremarkable including electrolytes, renal profile, ABG as noted above. Patient remains on enteral feeding. Remained generally weak and debilitated. Reevaluated today on 10/09/2021, patient remains in the ICU, remains on ventilatory support, she is on pressure control of 22 inspiratory time of 0.9 FiO2 40% PEEP of 5. ABG today showed a pO2 of 131 pCO2 of 31 pH of 7.52. Patient is not requiring any pressors, she is not requiring any drips, no sedation is needed, she is still receiving tube feeding vital HPI 22 mL per hour. Patient had a relatively uneventful night, and we plan to place the patient back on a mode of weaning, and I plan to place her back either on a T piece orotracheal collar today. No ABG was done today. No chest x-ray was done. Chest x-ray from yesterday showed basically no change. Tracheostomy is intact. Objective - Vital Signs Vital signs: Vital Signs Temp 99 F 10/09/21 04:00 Pulse 92 10/09/21 12:00 Resp 32 H 10/09/21 12:00 BP 142/96 10/09/21 12:00 Pulse Ox 100 10/09/21 12:00 Intake & Output 10/08/21 10/09/21 10/09/21 18:59 06:59 18:59 Intake Total 1484 3054 960 Output Total 1065 441 500 Balance 419 2673 460 Weight 58.9 kg 61.4 kg 61.4 kg Intake: IV 1050 1700 850 .9NS 20 600 Anidulafungin 100 mg In 100 Sodium Chloride 0.9% 100 ml @ 84 mls/hr IVPB DAILY @1700 [facility] Rx#:[id number] Magnesium Sulfate-D5w Pmx 300 1 gm In Dextrose/Water 1 100ml.bag @ 100 mls/hr IVPB Q1H [facility] Rx#: [id number] Sodium Chloride 0.9% 1, 1300 500 000 ml @ 100 mls/hr IV . Q10H [facility] Rx#:[id number] Vancomycin 1,000 mg In 250 250 Sodium Chloride 0.9% 250 ml @ 125 mls/hr IVPB Q12HR [facility] Rx#:[id number] levETIRAcetam IV 1,500 mg 100 100 100 In Saline 1 100ml.bag @ 400 mls/hr IVPB Q12HR [facility] Rx#:[id number] Intake, IV Titration 1000 Amount Sodium Chloride 0.9% 1, 1000 000 ml @ 999 mls/hr IV . Q1H1M [facility] Rx#:[id number] Tube Feeding 264 264 110 Other 170 90 Output: Urine 1065 440 500 Stool 1 Other: Voiding Method Indwelling Catheter Indwelling Catheter Indwelling Catheter ABP, PAP, CO, CI - Last Documented Arterial Blood Pressure 123/58 - Exam Physical Exam: Revealed a 51-year-old female intubated, on mechanical ventilation this morning. Plan to transition patient to a [facility] Head: Atraumatic, normocephalic, tracheostomy tube is in place. HEENT:[Neck is supple.] [No neck masses.] [No thyromegaly.] [No JVD.] Chest: Symmetrical chest expansion, crackles at the bases. Psychiatric: Normal mood, normal affect, normal mental status. Cardiac Exam: [Normal S1 and S2, no S3 gallop, no murmur.] Abdomen: [Soft, nontender, no megaly, no rebound, no guarding, normal bowel sounds.] PEG tube is intact. Extremities: [No clubbing, no edema, no cyanosis.] Skin: No rashes. Neurological Exam: Generally weak, arousable, follows instructions, but again g enerally weak. - Labs CBC & Chem 7: 10/08/21 21:18 10/09/21 05:47 Labs: Abnormal Lab Results - Last 24 Hours (Table) 10/08/21 10/08/21 10/08/21 Range/Units 17:47 20:36 21:18 RBC 2.39 L (3.80-5.40) m/uL Hgb 7.5 L (11.4-16.0) gm/dL Hct 23.9 L (34.0-46.0) % MCV 100.2 H (80.0-100.0) fL Lymphocytes # 0.9 L (1.0-4.8) k/uL ABG pH (7.35-7.45) ABG pCO2 (35-45) mmHg ABG pO2 (83-108) mmHg ABG O2 Saturation (94-97) % Sodium (137-145) mmol/L Potassium 3.1 L (3.5-5.1) mmol/L Creatinine 0.32 L (0.52-1.04) mg/dL Glucose 116 H (74-99) mg/dL POC Glucose (mg/dL) 100 H (75-99) mg/dL Calcium 7.9 L (8.4-10.2) mg/dL Magnesium 1.4 L (1.6-2.3) mg/dL AST 40 H (14-36) U/L ALT 75 H (4-34) U/L Total Protein 5.5 L (6.3-8.2) g/dL Albumin 2.5 L (3.5-5.0) g/dL 10/09/21 10/09/21 10/09/21 Range/Units 05:18 05:44 05:47 RBC (3.80-5.40) m/uL Hgb (11.4-16.0) gm/dL Hct (34.0-46.0) % MCV (80.0-100.0) fL Lymphocytes # (1.0-4.8) k/uL ABG pH 7.52 H (7.35-7.45) ABG pCO2 31 L (35-45) mmHg ABG pO2 131 H (83-108) mmHg ABG O2 Saturation 99.0 H (94-97) % Sodium 136 L (137-145) mmol/L Potassium (3.5-5.1) mmol/L Creatinine 0.38 L (0.52-1.04) mg/dL Glucose 100 H (74-99) mg/dL POC Glucose (mg/dL) 110 H (75-99) mg/dL Calcium 8.2 L (8.4-10.2) mg/dL Magnesium 2.4 H (1.6-2.3) mg/dL AST (14-36) U/L ALT (4-34) U/L Total Protein (6.3-8.2) g/dL Albumin (3.5-5.0) g/dL 10/09/21 Range/Units 11:32 RBC (3.80-5.40) m/uL Hgb (11.4-16.0) gm/dL Hct (34.0-46.0) % MCV (80.0-100.0) fL Lymphocytes # (1.0-4.8) k/uL ABG pH (7.35-7.45) ABG pCO2 (35-45) mmHg ABG pO2 (83-108) mmHg ABG O2 Saturation (94-97) % Sodium (137-145) mmol/L Potassium (3.5-5.1) mmol/L Creatinine (0.52-1.04) mg/dL Glucose (74-99) mg/dL POC Glucose (mg/dL) 116 H (75-99) mg/dL Calcium (8.4-10.2) mg/dL Magnesium (1.6-2.3) mg/dL AST (14-36) U/L ALT (4-34) U/L Total Protein (6.3-8.2) g/dL Albumin (3.5-5.0) g/dL Microbiology - Last 24 Hours (Table) 10/03/21 18:31 Blood Culture - Preliminary Blood No Growth after 120 hours Assessment and Plan Assessment: Impression: Acute hypoxic respiratory failure secondary to COVID-19 pneumonia, intubated on 09/11/2021, status post tracheostomy and PEG tube placement on 09/23, presently on pressure control mode of mechanical ventilation, plan is to place patient again on trach collar or t peice today. Altered mental status, acute toxic metabolic encephalopathy. No acute CVA noted on brain CT. significantly improved. Acute COVID-19 pneumonia History of seizure activity. Under control. Previous history of pulmonary embolism, on long-term treatment with Eliquis. Paroxysmal atrial fibrillation Cardiomyopathy and LV dysfunction with ejection fraction of 30-35%. History of pacemaker implantation. 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 Continue supportive care measures Continue Lovenox, for DVT prophylaxis. Continue Keppra And Tegretol. continue enteral feeding , via PEG tube. Continue physical therapy. continue to monitor in the ICU Working on possible transfer to rehab once a bed is available. Prognosis remains relatively guarded. Critical care time is over 30 minutes Time with Patient: Greater than 30
--- NOTE | 2021-10-09 14:14 | P.PN ---
Subjective Progress Note Date: 10/09/21 CHIEF COMPLAINT: COVID-19 pneumonia HISTORY OF PRESENT ILLNESS: Patient remains in the ICU on mechanical ventilation. Patient currently on trach collar. Patient is status post tracheostomy and PEG tube placement on 09/23/21. Patient is tolerating tube feedings. They're working on possible transfer to rehab once a bed is available PHYSICAL EXAM: VITAL SIGNS: Reviewed. GENERAL:no acute distress. HEENT: Moist buccal mucosa. Head is atraumatic, normocephalic. Tracheostomy site clean and intact. ABDOMEN: Soft. Nondistended. PEG tube site clean dry and intact NEUROLOGIC: awake ASSESSMENT: 1. Acute hypoxic respiratory failure secondary to COVID-19 pneumonia requiring mechanical ventilation 2. Severe protein calorie malnutrition PLAN: -Continue tube feedings -Continue ICU management -Continue supportive care Physician Major Assembler note has been reviewed by physician. Signing provider agrees with the documented findings, assessment, and plan of care. Objective - Vital Signs Vital signs: Vital Signs Temp 99 F 10/09/21 04:00 Pulse 86 10/09/21 13:00 Resp 19 10/09/21 13:00 BP 95/50 10/09/21 13:00 Pulse Ox 100 10/09/21 13:00 Intake & Output 10/08/21 10/09/21 10/09/21 18:59 06:59 18:59 Intake Total 1484 3054 1082 Output Total 1065 441 750 Balance 419 2613 332 Weight 58.9 kg 61.4 kg 61.4 kg Intake: IV 1050 1700 950 .9NS 20 600 Anidulafungin 100 mg In 100 Sodium Chloride 0.9% 100 ml @ 84 mls/hr IVPB DAILY @1700 [facility] Rx#:[id number] Magnesium Sulfate-D5w Pmx 300 1 gm In Dextrose/Water 1 100ml.bag @ 100 mls/hr IVPB Q1H [facility] Rx#: [id number] Sodium Chloride 0.9% 1, 1300 600 000 ml @ 100 mls/hr IV . Q10H [facility] Rx#:[id number] Vancomycin 1,000 mg In 250 250 Sodium Chloride 0.9% 250 ml @ 125 mls/hr IVPB Q12HR [facility] Rx#:[id number] levETIRAcetam IV 1,500 mg 100 100 100 In Saline 1 100ml.bag @ 400 mls/hr IVPB Q12HR [facility] Rx#:[id number] Intake, IV Titration 1000 Amount Sodium Chloride 0.9% 1, 1000 000 ml @ 999 mls/hr IV . Q1H1M [facility] Rx#:[id number] Tube Feeding 264 264 132 Other 170 90 Output: Urine 1065 440 750 Stool 1 Other: Voiding Method Indwelling Catheter Indwelling Catheter Indwelling Catheter ABP, PAP, CO, CI - Last Documented Arterial Blood Pressure 123/58 - Labs CBC & Chem 7: 10/08/21 21:18 10/09/21 05:47 Labs: Abnormal Lab Results - Last 24 Hours (Table) 10/08/21 10/08/21 10/08/21 Range/Units 17:47 20:36 21:18 RBC 2.39 L (3.80-5.40) m/uL Hgb 7.5 L (11.4-16.0) gm/dL Hct 23.9 L (34.0-46.0) % MCV 100.2 H (80.0-100.0) fL Lymphocytes # 0.9 L (1.0-4.8) k/uL ABG pH (7.35-7.45) ABG pCO2 (35-45) mmHg ABG pO2 (83-108) mmHg ABG O2 Saturation (94-97) % Sodium (137-145) mmol/L Potassium 3.1 L (3.5-5.1) mmol/L Creatinine 0.32 L (0.52-1.04) mg/dL Glucose 116 H (74-99) mg/dL POC Glucose (mg/dL) 100 H (75-99) mg/dL Calcium 7.9 L (8.4-10.2) mg/dL Magnesium 1.4 L (1.6-2.3) mg/dL AST 40 H (14-36) U/L ALT 75 H (4-34) U/L Total Protein 5.5 L (6.3-8.2) g/dL Albumin 2.5 L (3.5-5.0) g/dL 10/09/21 10/09/21 10/09/21 Range/Units 05:18 05:44 05:47 RBC (3.80-5.40) m/uL Hgb (11.4-16.0) gm/dL Hct (34.0-46.0) % MCV (80.0-100.0) fL Lymphocytes # (1.0-4.8) k/uL ABG pH 7.52 H (7.35-7.45) ABG pCO2 31 L (35-45) mmHg ABG pO2 131 H (83-108) mmHg ABG O2 Saturation 99.0 H (94-97) % Sodium 136 L (137-145) mmol/L Potassium (3.5-5.1) mmol/L Creatinine 0.38 L (0.52-1.04) mg/dL Glucose 100 H (74-99) mg/dL POC Glucose (mg/dL) 110 H (75-99) mg/dL Calcium 8.2 L (8.4-10.2) mg/dL Magnesium 2.4 H (1.6-2.3) mg/dL AST (14-36) U/L ALT (4-34) U/L Total Protein (6.3-8.2) g/dL Albumin (3.5-5.0) g/dL 10/09/21 Range/Units 11:32 RBC (3.80-5.40) m/uL Hgb (11.4-16.0) gm/dL Hct (34.0-46.0) % MCV (80.0-100.0) fL Lymphocytes # (1.0-4.8) k/uL ABG pH (7.35-7.45) ABG pCO2 (35-45) mmHg ABG pO2 (83-108) mmHg ABG O2 Saturation (94-97) % Sodium (137-145) mmol/L Potassium (3.5-5.1) mmol/L Creatinine (0.52-1.04) mg/dL Glucose (74-99) mg/dL POC Glucose (mg/dL) 116 H (75-99) mg/dL Calcium (8.4-10.2) mg/dL Magnesium (1.6-2.3) mg/dL AST (14-36) U/L ALT (4-34) U/L Total Protein (6.3-8.2) g/dL Albumin (3.5-5.0) g/dL Microbiology - Last 24 Hours (Table) 10/03/21 18:31 Blood Culture - Preliminary Blood No Growth after 120 hours
[2021-10-09] MEDS: HYDROcodone/APAP 15 ML SOLUTION PO PRN ×2 (14:56→20:25)
--- NOTE | 2021-10-09 15:18 | P.PN ---
Subjective Progress Note Date: 10/08/21 Principal diagnosis: Pneumonia pressure ulcer and multiple antibiotic allergies Patient is a 51-year-old female presenting to the hospital on September 10 for mental status changes patient did have a evidence of COVID-19 infection, with respiratory failure requiring intubation also with E. coli UTI and the patient did have multiple antibiotic allergies. The patient is status post tracheostomy and PEG tube placement on 09/23/2021 On today's evaluation that is to to 10/08/2021, patient is afebrile today, the patient is hemodynamically stable not requiring pressor support, the patient is currently on trach collar and is breathing comfortably patient is up in the [facility] and wants to go back to the bed, no diarrhea has been reported by the nursing staff Objective - Vital Signs Vital signs: Vital Signs Temp 98.2 F 10/08/21 08:00 Pulse 80 10/08/21 10:00 Resp 36 H 10/08/21 10:00 BP 185/98 10/08/21 10:00 Pulse Ox 90 L 10/08/21 10:00 Intake & Output 10/07/21 10/08/21 10/08/21 18:59 06:59 18:59 Intake Total 1004 1292 728 Output Total 1625 1450 650 Balance -621 -158 78 Intake: IV 590 710 550 .9NS 20 240 510 200 Anidulafungin 100 mg In 100 Sodium Chloride 0.9% 100 ml @ 84 mls/hr IVPB DAILY @1700 [facility] Rx#:[id number] Vancomycin 1,000 mg In 250 250 Sodium Chloride 0.9% 250 ml @ 125 mls/hr IVPB Q12HR [facility] Rx#:[id number] levETIRAcetam IV 1,500 mg 100 100 100 In Saline 1 100ml.bag @ 400 mls/hr IVPB Q12HR [facility] Rx#:[id number] Intake, IV Titration 250 Amount Vancomycin 1,000 mg In 250 Sodium Chloride 0.9% 250 ml @ 125 mls/hr IVPB Q12HR [facility] Rx#:[id number] Tube Feeding 264 242 88 Other 150 90 90 Output: Urine 1625 1450 650 Other: Voiding Method Indwelling Catheter Indwelling Catheter Indwelling Catheter ABP, PAP, CO, CI - Last Documented Arterial Blood Pressure 123/58 - Exam GENERAL DESCRIPTION: Middle-aged male intubated on the vent, no distress. No tachypnea or accessory muscle of respiration use. LUNGS: Unlabored breathing. Decreased breath sound at the base. No wheeze or crackle. HEART: S1, S2, regular rate and rhythm. No loud murmur ABDOMEN: Soft, no tenderness , EXTREMITIES: No edema of feet. - Labs CBC & Chem 7: 10/08/21 21:18 10/09/21 05:47 Labs: Abnormal Lab Results - Last 24 Hours (Table) 10/07/21 10/08/21 10/08/21 Range/Units 17:35 05:27 06:00 ABG pO2 (83-108) mmHg ABG HCO3 (21-25) mmol/L ABG Total CO2 (19-24) mmol/L ABG O2 Saturation (94-97) % Creatinine 0.34 L (0.52-1.04) mg/dL Glucose 122 H (74-99) mg/dL POC Glucose (mg/dL) 106 H 106 H (75-99) mg/dL 10/08/21 10/08/21 Range/Units 10:30 11:31 ABG pO2 70 L (83-108) mmHg ABG HCO3 30 H (21-25) mmol/L ABG Total CO2 31 H (19-24) mmol/L ABG O2 Saturation 92.2 L (94-97) % Creatinine (0.52-1.04) mg/dL Glucose (74-99) mg/dL POC Glucose (mg/dL) 135 H (75-99) mg/dL Microbiology - Last 24 Hours (Table) 10/03/21 18:31 Blood Culture - Preliminary Blood No Growth after 96 hours 10/01/21 05:56 Blood Culture - Final Blood No Growth after 144 hours Assessment and Plan (1) Pneumonia Current Visit: Yes Status: Acute Code(s): J18.9 - PNEUMONIA, UNSPECIFIED ORGANISM SNOMED Code(s): 275754387 (2) Allergy to multiple antibiotics Current Visit: Yes Status: Acute Code(s): Z88.1 - ALLERGY STATUS TO OTHER ANTIBIOTIC AGENTS SNOMED Code(s): 799647361 (3) COVID-19 Current Visit: Yes Status: Acute Code(s): U07.1 - COVID-19 SNOMED Code(s): 710509860 Plan: 1-patient with unstageable sacral pressure ulcer as well as unstageable pressure ulcer to the upper back area, local wound care with the medahoney followed by moist dressing and keep the area off the pressure, left elbow pressure ulcer stage II with no cellulitis local wound care with a dry with visible dressing daily off the pressure 2-Patient with acute respiratory failure which is multifactorial in this patient who did have a covid19 pneumonia and a concern for possible secondary bacterial pneumonia , patient did have new fever on 10/03/2021 with concern for possible PICC line infection blood cultures were obtained from the PICC line has been negative so far, patient UA is negative, patient sputum did grow Radha, could be colonizer versus oropharyngeal candidiasis patient seemed to be clinically responding to vancomycin and Eraxis to continue and monitor clinical course closely
--- NOTE | 2021-10-09 15:20 | P.PN ---
Subjective Progress Note Date: 10/09/21 Principal diagnosis: Pneumonia pressure ulcer and multiple antibiotic allergies Patient is a 51-year-old female presenting to the hospital on September 10 for mental status changes patient did have a evidence of COVID-19 infection, with respiratory failure requiring intubation also with E. coli UTI and the patient did have multiple antibiotic allergies. The patient is status post tracheostomy and PEG tube placement on 09/23/2021 On today's evaluation that is to to 10/09/2021, patient remains to be afebrile today, the patient is hemodynamically stable not requiring pressor support, the patient is breathing comfortably on trach collar patient been tolerating her tu be feeds and no diarrhea has been reported, nursing staff did change the dressing mention no worsening of the wound to the back area Objective - Vital Signs Vital signs: Vital Signs Temp 99 F 10/09/21 04:00 Pulse 86 10/09/21 13:00 Resp 19 10/09/21 13:00 BP 95/50 10/09/21 13:00 Pulse Ox 100 10/09/21 13:00 Intake & Output 10/08/21 10/09/21 10/09/21 18:59 06:59 18:59 Intake Total 1484 3054 1082 Output Total 1065 441 750 Balance 419 2613 332 Weight 58.9 kg 61.4 kg 61.4 kg Intake: IV 1050 1700 950 .9NS 20 600 Anidulafungin 100 mg In 100 Sodium Chloride 0.9% 100 ml @ 84 mls/hr IVPB DAILY @1700 ADDIE Rx#:[id number] Magnesium Sulfate-D5w Pmx 300 1 gm In Dextrose/Water 1 100ml.bag @ 100 mls/hr IVPB Q1H ADDIE Rx#: [id number] Sodium Chloride 0.9% 1, 1300 600 000 ml @ 100 mls/hr IV . Q10H ADDIE Rx#:[id number] Vancomycin 1,000 mg In 250 250 Sodium Chloride 0.9% 250 ml @ 125 mls/hr IVPB Q12HR ADDIE Rx#:[id number] levETIRAcetam IV 1,500 mg 100 100 100 In Saline 1 100ml.bag @ 400 mls/hr IVPB Q12HR ADDIE Rx#:[id number] Intake, IV Titration 1000 Amount Sodium Chloride 0.9% 1, 1000 000 ml @ 999 mls/hr IV . Q1H1M ONE Rx#:[id number] Tube Feeding 264 264 132 Other 170 90 Output: Urine 1065 440 750 Stool 1 Other: Voiding Method Indwelling Catheter Indwelling Catheter Indwelling Catheter ABP, PAP, CO, CI - Last Documented Arterial Blood Pressure 123/58 - Exam GENERAL DESCRIPTION: Middle-aged male intubated on the vent, no distress. No tachypnea or accessory muscle of respiration use. LUNGS: Unlabored breathing. Coarse breath sound at the base. No wheeze or crackle. HEART: S1, S2, regular rate and rhythm. No loud murmur ABDOMEN: Soft, no tenderness , EXTREMITIES: No edema of feet. - Labs CBC & Chem 7: 10/08/21 21:18 10/09/21 05:47 Labs: Abnormal Lab Results - Last 24 Hours (Table) 10/08/21 10/08/21 10/08/21 Range/Units 17:47 20:36 21:18 RBC 2.39 L (3.80-5.40) m/uL Hgb 7.5 L (11.4-16.0) gm/dL Hct 23.9 L (34.0-46.0) % MCV 100.2 H (80.0-100.0) fL Lymphocytes # 0.9 L (1.0-4.8) k/uL ABG pH (7.35-7.45) ABG pCO2 (35-45) mmHg ABG pO2 (83-108) mmHg ABG O2 Saturation (94-97) % Sodium (137-145) mmol/L Potassium 3.1 L (3.5-5.1) mmol/L Creatinine 0.32 L (0.52-1.04) mg/dL Glucose 116 H (74-99) mg/dL POC Glucose (mg/dL) 100 H (75-99) mg/dL Calcium 7.9 L (8.4-10.2) mg/dL Magnesium 1.4 L (1.6-2.3) mg/dL AST 40 H (14-36) U/L ALT 75 H (4-34) U/L Total Protein 5.5 L (6.3-8.2) g/dL Albumin 2.5 L (3.5-5.0) g/dL 10/09/21 10/09/21 10/09/21 Range/Units 05:18 05:44 05:47 RBC (3.80-5.40) m/uL Hgb (11.4-16.0) gm/dL Hct (34.0-46.0) % MCV (80.0-100.0) fL Lymphocytes # (1.0-4.8) k/uL ABG pH 7.52 H (7.35-7.45) ABG pCO2 31 L (35-45) mmHg ABG pO2 131 H (83-108) mmHg ABG O2 Saturation 99.0 H (94-97) % Sodium 136 L (137-145) mmol/L Potassium (3.5-5.1) mmol/L Creatinine 0.38 L (0.52-1.04) mg/dL Glucose 100 H (74-99) mg/dL POC Glucose (mg/dL) 110 H (75-99) mg/dL Calcium 8.2 L (8.4-10.2) mg/dL Magnesium 2.4 H (1.6-2.3) mg/dL AST (14-36) U/L ALT (4-34) U/L Total Protein (6.3-8.2) g/dL Albumin (3.5-5.0) g/dL 10/09/21 Range/Units 11:32 RBC (3.80-5.40) m/uL Hgb (11.4-16.0) gm/dL Hct (34.0-46.0) % MCV (80.0-100.0) fL Lymphocytes # (1.0-4.8) k/uL ABG pH (7.35-7.45) ABG pCO2 (35-45) mmHg ABG pO2 (83-108) mmHg ABG O2 Saturation (94-97) % Sodium (137-145) mmol/L Potassium (3.5-5.1) mmol/L Creatinine (0.52-1.04) mg/dL Glucose (74-99) mg/dL POC Glucose (mg/dL) 116 H (75-99) mg/dL Calcium (8.4-10.2) mg/dL Magnesium (1.6-2.3) mg/dL AST (14-36) U/L ALT (4-34) U/L Total Protein (6.3-8.2) g/dL Albumin (3.5-5.0) g/dL Microbiology - Last 24 Hours (Table) 10/03/21 18:31 Blood Culture - Preliminary Blood No Growth after 120 hours Assessment and Plan (1) Pneumonia Current Visit: Yes Status: Acute Code(s): J18.9 - PNEUMONIA, UNSPECIFIED ORGANISM SNOMED Code(s): 032854525 (2) Allergy to multiple antibiotics Current Visit: Yes Status: Acute Code(s): Z88.1 - ALLERGY STATUS TO OTHER ANTIBIOTIC AGENTS SNOMED Code(s): 007780344 (3) COVID-19 Current Visit: Yes Status: Acute Code(s): U07.1 - COVID-19 SNOMED Code(s): 735017608 Plan: 1-patient with unstageable sacral pressure ulcer as well as unstageable pressure ulcer to the upper back area, local wound care with the medahoney followed by moist dressing and keep the area off the pressure, left elbow pressure ulcer stage II with no cellulitis local wound care with a dry with Aquacel silver dressing and keep the area off the pressure 2-Patient with acute respiratory failure which is multifactorial in this patient who did have a covid19 pneumonia and a concern for possible secondary bacterial pneumonia , patient did have new fever on 10/03/2021 with concern for possible PICC line infection blood cultures were obtained from the PICC line has been negative so far, patient UA is negative, patient sputum did grow Radha, could be colonizer versus oropharyngeal candidiasis patient repeat x-rays showing left upper lobe opacity and possible component of pneumonia, patient is clinically responding to vancomycin and Eraxis, will be continued onnitor clinical course closely Time with Patient: Less than 30
[2021-10-09] MEDS: CLEVIDIPINE BUTYRATE 25 MG in EMPTY BAG 1 BAG IV SCH (15:31)
[2021-10-09] MEDS: ANIDULAFUNGIN 100 MG in SODIUM CHLORIDE 0.9% 100 ML IVPB SCH (16:46)
--- NOTE | 2021-10-09 17:41 | P.PN ---
<Godwin, - Last Filed: 10/09/21 17:35> Subjective Progress Note Date: 10/09/21 Principal diagnosis: Altered mental status Patient is a 51-year-old female presented to the emergency room with altered mental status, COVID-19 pneumonia, UTI, seizures and possible stroke. UTI and pneumonia have been treated, and sepsis resolved. 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 Patient has been in the hospital since September 10, 2021 and has had extensive evaluations and treatment. Patient has been followed by multiple consultants including intensive care/pulmonary, neurology, and surgical services. Hospitalists have been providing coverage from 09/10/2021 through 10/05/2021. Patient continues to require mechanical ventilation. Patient is status post PEG tube placement and tracheotomy placement. 10/06/21 Patient was seen and examined at bedside in the ICU. Continues to require mechanical ventilation via tracheostomy. FiO2 40%, PEEP 5, oxygen saturation 96%, blood pressure 149/82. She is alert, responds to name, and follows simple commands. Denies any acute symptoms, unable to speak, replies by shaking her head yes or no. Left-sided paralysis, right-sided weakness able to grasp fingers and wiggle toes on the right. White blood cell count 5.6, kidney fun ction improved the BUN 15, creatinine 0.3, liver enzymes continue to be elevated but improving. Plan was to [facility] patient to [facility], insurance denied, awaiting clearance from social work. 10/07/21 Patient was seen and examined at bedside in ICU. Patient is resting comfortably, in no acute distress. Continues to require mechanical ventilation via tracheostomy. FiO2 40%, PEEP 5, oxygen saturation 95%, blood pressure 119/74. Patient is alert and oriented to self, able to follow simple commands. Continued left-sided paralysis, right-sided weakness. Potassium 3.3, was treated according to protocol. Kidney function remains stable, white count 7.1 today. Still waiting for insurance appeal for transfer to long-term acute care. 10/08/21 patient was seen and examined in ICU. Was up in the chair via rebecca lift, in mild distress. Oxygen saturation was declining to 70% while on trach collar. Patient was trying to say that she can't breathe and she needs help. Nurse and respiratory therapist assisted patient back on mechanical ventilation at previous settings, with improvement of oxygen saturation. Patient was alert and oriented to self.continued right-sided weakness and left-sided paralysis.potassium improved to 3.5.still awaiting insurance appeal for transfer to long-term [facility] care 10/09/2021 Patient was seen and examined at bedside in ICU. Resting comfortably in bed, in no acute distress. Alert and oriented to self. She was trying to say that she wants to go home. Continued right-sided weakness and left-sided paralysis. Continues to require mechanical ventilation via tracheostomy. FiO2 40% PEEP of 5. ABG was stable. Tolerating tube feeding via PEG tube. Awaiting insurance appeal for transfer to long-replaced by [facility]. Objective - Vital Signs Vital signs: Vital Signs Temp 98.2 F 10/09/21 16:00 Pulse 108 H 10/09/21 16:00 Resp 21 10/09/21 16:00 BP 172/97 10/09/21 16:00 Pulse Ox 96 10/09/21 16:00 Intake & Output 10/08/21 10/09/21 10/09/21 18:59 06:59 18:59 Intake Total 1484 3054 1326 Output Total 2131 023 1708 Balance 419 2613 176 Weight 58.9 kg 61.4 kg 61.4 kg Intake: IV 1050 1700 1150 .9NS 20 600 Anidulafungin 100 mg In 100 Sodium Chloride 0.9% 100 ml @ 84 mls/hr IVPB DAILY @1700 ADDIE Rx#:[id number] Magnesium Sulfate-D5w Pmx 300 1 gm In Dextrose/Water 1 100ml.bag @ 100 mls/hr IVPB Q1H ADDIE Rx#: [id number] Sodium Chloride 0.9% 1, 1300 800 000 ml @ 100 mls/hr IV . Q10H ADDIE Rx#:[id number] Vancomycin 1,000 mg In 250 250 Sodium Chloride 0.9% 250 ml @ 125 mls/hr IVPB Q12HR ADDIE Rx#:[id number] levETIRAcetam IV 1,500 mg 100 100 100 In Saline 1 100ml.bag @ 400 mls/hr IVPB Q12HR ADDIE Rx#:[id number] Intake, IV Titration 1000 Amount Sodium Chloride 0.9% 1, 1000 000 ml @ 999 mls/hr IV . Q1H1M ONE Rx#:[id number] Tube Feeding 264 264 176 Other 170 90 Output: Urine 1920 347 7134 Stool 1 Other: Voiding Method Indwelling Catheter Indwelling Catheter Indwelling Catheter ABP, PAP, CO, CI - Last Documented Arterial Blood Pressure 123/58 - Constitutional General appearance: Present: cooperative, no acute distress - EENT Eyes: Present: EOMI, PERRLA - Neck Details: Tracheostomy in place - Respiratory Respiratory: bilateral: rhonchi - Cardiovascular Heart rate: 80 Rhythm: regular Heart sounds: normal: S1, S2 - Peripheral pulses radial pulse Peripheral Pulses: bilateral: Normal - Gastrointestinal Gastrointestinal Comment(s): PEG tube present General gastrointestinal: Present: normal bowel sounds, soft - Integumentary Integumentary: Present: normal - Neurologic Neurologic: Present: focal deficits - Musculoskeletal Musculoskeletal: Present: generalized weakness, right sided weakness, left sided weakness (Paralysis) - Psychiatric Psychiatric: Present: A&O x's 3 - Allied health notes Allied health notes reviewed: nursing - Labs CBC & Chem 7: 10/08/21 21:18 10/09/21 05:47 Labs: Abnormal Lab Results - Last 24 Hours (Table) 10/08/21 10/08/21 10/08/21 Range/Units 17:47 20:36 21:18 RBC 2.39 L (3.80-5.40) m/uL Hgb 7.5 L (11.4-16.0) gm/dL Hct 23.9 L (34.0-46.0) % MCV 100.2 H (80.0-100.0) fL Lymphocytes # 0.9 L (1.0-4.8) k/uL ABG pH (7.35-7.45) ABG pCO2 (35-45) mmHg ABG pO2 (83-108) mmHg ABG O2 Saturation (94-97) % Sodium (137-145) mmol/L Potassium 3.1 L (3.5-5.1) mmol/L Creatinine 0.32 L (0.52-1.04) mg/dL Glucose 116 H (74-99) mg/dL POC Glucose (mg/dL) 100 H (75-99) mg/dL Calcium 7.9 L (8.4-10.2) mg/dL Magnesium 1.4 L (1.6-2.3) mg/dL AST 40 H (14-36) U/L ALT 75 H (4-34) U/L Total Protein 5.5 L (6.3-8.2) g/dL Albumin 2.5 L (3.5-5.0) g/dL 10/09/21 10/09/21 10/09/21 Range/Units 05:18 05:44 05:47 RBC (3.80-5.40) m/uL Hgb (11.4-16.0) gm/dL Hct (34.0-46.0) % MCV (80.0-100.0) fL Lymphocytes # (1.0-4.8) k/uL ABG pH 7.52 H (7.35-7.45) ABG pCO2 31 L (35-45) mmHg ABG pO2 131 H (83-108) mmHg ABG O2 Saturation 99.0 H (94-97) % Sodium 136 L (137-145) mmol/L Potassium (3.5-5.1) mmol/L Creatinine 0.38 L (0.52-1.04) mg/dL Glucose 100 H (74-99) mg/dL POC Glucose (mg/dL) 110 H (75-99) mg/dL Calcium 8.2 L (8.4-10.2) mg/dL Magnesium 2.4 H (1.6-2.3) mg/dL AST (14-36) U/L ALT (4-34) U/L Total Protein (6.3-8.2) g/dL Albumin (3.5-5.0) g/dL 10/09/21 Range/Units 11:32 RBC (3.80-5.40) m/uL Hgb (11.4-16.0) gm/dL Hct (34.0-46.0) % MCV (80.0-100.0) fL Lymphocytes # (1.0-4.8) k/uL ABG pH (7.35-7.45) ABG pCO2 (35-45) mmHg ABG pO2 (83-108) mmHg ABG O2 Saturation (94-97) % Sodium (137-145) mmol/L Potassium (3.5-5.1) mmol/L Creatinine (0.52-1.04) mg/dL Glucose (74-99) mg/dL POC Glucose (mg/dL) 116 H (75-99) mg/dL Calcium (8.4-10.2) mg/dL Magnesium (1.6-2.3) mg/dL AST (14-36) U/L ALT (4-34) U/L Total Protein (6.3-8.2) g/dL Albumin (3.5-5.0) g/dL Microbiology - Last 24 Hours (Table) 10/03/21 18:31 Blood Culture - Preliminary Blood No Growth after 120 hours - Imaging and Cardiology Chest x-ray: report reviewed Assessment and Plan Assessment: Altered mental status secondary to metabolic encephalopathy, ruled out intercranial lesions Acute hypoxic respiratory failure secondary to COVID-19 pneumonia, still requiring mechanical ventilation Status post tracheostomy and PEG tube placement Sepsis secondary to UTI and COVID-19 pneumonia, resolved with treatment Breakthrough seizure, history of previous seizures Unstageable sacral pressure ulcer Cardiomyopathy, EF of 30-35% Acute kidney injury, improved with treatment History of coronary artery disease history of pulmonary embolism History 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 left foot drop Status post permanent pacemaker History of glaucoma but surgical intervention Full code Plan: She continues to require mechanical ventilation, following pulmonary recomme ndations for weaning Antibiotic, vanco, and antifungal treatment for pneumonia per infectious disease recommendations Continue tube feedings, following dietitian recommendations Continue current medication regimen Continue monitoring her mental status for any changes Continue Wound care for unstageable sacral pressure wound Still waiting for insurance approval for transfer to long-term acute care Further recommendations to come based on patient's clinical course Time with Patient: Greater than 30 <Garth Auguste - Last Filed: 10/13/21 11:58> Objective - Vital Signs Vital signs: Vital Signs Temp 98.3 F 10/13/21 08:00 Pulse 77 10/13/21 11:00 Resp 18 10/13/21 11:00 BP 83/45 10/13/21 11:00 Pulse Ox 100 10/13/21 11:00 Intake & Output 10/12/21 10/13/21 10/13/21 18:59 06:59 18:59 Intake Total 1066.19 1130 470 Output Total 4660 555 165 Balance -3593.81 575 305 Weight 62 kg Intake: IV 300 260 80 Sodium Chloride 0.9% 1, 300 260 80 000 ml @ 20 mls/hr IV . Q24H ADDIE Rx#:[id number] Intake, IV Titration 46.19 Amount Dexmedetomidine/0.9% NaCl 46.19 (Pmx) 400 mcg In Empty Bag 1 bag @ 0.2 MCG/KG/HR 2.98 mls/hr IV .Q24H ADDIE Rx#:[id number] Tube Feeding 660 780 300 Other 60 90 90 Output: Urine 4660 555 165 Other: Voiding Method Indwelling Catheter Indwelling Catheter Indwelling Catheter ABP, PAP, CO, CI - Last Documented Arterial Blood Pressure 123/58 - Labs CBC & Chem 7: 10/13/21 05:45 10/13/21 05:45 Labs: Abnormal Lab Results - Last 24 Hours (Table) 10/12/21 10/12/21 10/13/21 Range/Units 12:00 18:03 00:13 RBC (3.80-5.40) m/uL Hgb (11.4-16.0) gm/dL Hct (34.0-46.0) % MCV (80.0-100.0) fL Lymphocytes # (1.0-4.8) k/uL BUN (7-17) mg/dL Creatinine (0.52-1.04) mg/dL Glucose (74-99) mg/dL POC Glucose (mg/dL) 115 H 105 H 114 H (75-99) mg/dL ALT (4-34) U/L Total Protein (6.3-8.2) g/dL Albumin (3.5-5.0) g/dL 10/13/21 10/13/21 10/13/21 Range/Units 05:26 05:45 05:45 RBC 2.31 L (3.80-5.40) m/uL Hgb 7.4 L (11.4-16.0) gm/dL Hct 23.4 L (34.0-46.0) % MCV 101.3 H (80.0-100.0) fL Lymphocytes # 0.9 L (1.0-4.8) k/uL BUN 19 H (7-17) mg/dL Creatinine 0.42 L (0.52-1.04) mg/dL Glucose 102 H (74-99) mg/dL POC Glucose (mg/dL) 113 H (75-99) mg/dL ALT 35 H (4-34) U/L Total Protein 5.6 L (6.3-8.2) g/dL Albumin 2.6 L (3.5-5.0) g/dL 10/13/21 Range/Units 11:24 RBC (3.80-5.40) m/uL Hgb (11.4-16.0) gm/dL Hct (34.0-46.0) % MCV (80.0-100.0) fL Lymphocytes # (1.0-4.8) k/uL BUN (7-17) mg/dL Creatinine (0.52-1.04) mg/dL Glucose (74-99) mg/dL POC Glucose (mg/dL) 112 H (75-99) mg/dL ALT (4-34) U/L Total Protein (6.3-8.2) g/dL Albumin (3.5-5.0) g/dL Microbiology - Last 24 Hours (Table) 10/13/21 03:20 Sputum Culture - Preliminary Sputum Assessment and Plan Plan: I have personally seen and examined the patient, reviewed the documentation and agree with the assessment and plan as written. Number of minutes spent on the visit: [17].
[2021-10-09 17:56] LABS: Glucose,Whole Blood 114 mg/dL (75-99)
[2021-10-09 23:31] LABS: Glucose,Whole Blood 102 mg/dL (75-99)
[2021-10-10] MEDS: SODIUM CHLORIDE 0.9% 1,000 ML IV SCH ×3 (00:55→20:05)
[2021-10-10] MEDS: HYDROcodone/APAP 15 ML SOLUTION PO PRN ×2 (01:25→15:53)
[2021-10-10] MEDS ORDERED: QUEtiapine 25 MG TAB PO STA (01:45)
[2021-10-10] MEDS ORDERED: ALPRAZolam 0.5 MG TAB PO STA (01:45)
[2021-10-10 05:52] LABS: Glucose,Whole Blood 98 mg/dL (75-99)
[2021-10-10] MEDS: INSULIN ASPART (NovoLOG) 100 UNIT/ML VIAL SQ SCH ×4 (06:20→17:48)
[2021-10-10 07:55] LABS: HCT 26.6 % (34.0-46.0); HGB 8.1 gm/dL (11.4-16.0); Hypochromasia Moderate; MCH 31.4 pg (25.0-35.0); MCHC 30.4 g/dL (31.0-37.0); MCV 103.1 fL (80.0-100.0); Macrocytosis Slight; Mean Platelet Volume 7.5; Platelet Count 354 k/uL (150-450); RBC 2.58 m/uL (3.80-5.40); RDW 14.6 % (11.5-15.5); WBC 6.6 k/uL (3.8-10.6)
[2021-10-10] MEDS ORDERED: VANCOMYCIN TROUGH DUE 1 EACH MISC MISCELLANE ONE (08:00)
[2021-10-10 08:23] LABS: African American GFR (CKD) >90 (>60 ml/min/1.73 sqM); Anion Gap 4 mmol/L; Blood Urea Nitrogen 9 mg/dL (7-17); Calcium 8.3 mg/dL (8.4-10.2); Carbon Dioxide 27 mmol/L (22-30); Chloride 108 mmol/L (98-107); Glucose 120 mg/dL (74-99); Non-African American GFR(CKD) >90 (>60 ml/min/1.73 sqM); Potassium 3.2 mmol/L (3.5-5.1); Sodium 139 mmol/L (137-145)
[2021-10-10] MEDS: PANTOPRAZOLE 40 MG/10 ML VIAL IV SCH (08:49)
[2021-10-10] MEDS: CHOLECALCIFEROL 125 MCG (5000 IU) TABLET PO SCH (08:49)
[2021-10-10] MEDS: APIXABAN 5 MG TAB PO SCH ×2 (08:49→20:02)
[2021-10-10] MEDS: METOPROLOL TARTRATE 25 MG TAB PO SCH ×2 (08:49→20:02)
[2021-10-10] MEDS: AMIODARONE 200 MG TAB PO SCH (08:49)
[2021-10-10] MEDS: CHLORHEXIDINE GLUCONATE 15 ML CUP MUCOUS MEM SCH ×2 (08:50→20:04)
[2021-10-10] MEDS: carBAMazepine 200 MG TAB PO SCH ×3 (08:50→21:03)
[2021-10-10] MEDS: QUEtiapine 50 MG TAB PO SCH ×2 (08:50→20:04)
[2021-10-10] MEDS: levETIRAcetam IV 1,500 MG in SALINE 1 100ML.BAG IVPB SCH ×2 (09:16→20:02)
[2021-10-10] MEDS: VANCOMYCIN 1,000 MG in SODIUM CHLORIDE 0.9% 250 ML IVPB SCH ×2 (09:16→20:02)
--- NOTE | 2021-10-10 11:00 | P.PN ---
Subjective Progress Note Date: 10/10/21 Principal diagnosis: Acute COVID-19 pneumonia with acute hypoxic respiratory failure and altered mental status. 10/04/2021, the patient is being seen in follow-up in the intensive care unit. This morning, the patient remains off sedation. She is awake and alert. She remains on a pressure control mode of mechanical ventilation. She is at the rate of 16 with a pressure control of 18 with an FiO2 of 40% with a PEEP of 5. No blood gases available from today. Chest x-ray showing stable findings with a persistent left lower lobe effusion/consolidation. The patient started spiking temperature as of yesterday. T-max was at 11.9. She is still febrile with a temperature 100.1. I was not informed of this changes and the focal went right away to infectious disease. The patient was given 2 sets of blood cultures. Noted the patient was already receiving a combination of vancomycin and Eraxis. That is his sputum culture is still showing Radha. The patient has a PICC line in her right upper extremity. The exit site is dry clean and intact. No diarrhea. No other clear source of infection at this point in time. Infections on the case. Pro-calcitonin level will be checked. She remains hemodynamically stable. She is on no pressors. Cardiac rhythm is sinus with frequent PACs and PVCs. Fluid balance has been +1.2 L over the past 24 hours. Note that the patient's weaning parameters of the persistently weak. Nevertheless, she was able to tolerate a full total of 4 hours a pressure support mode of mechanical ventilation with a pressure support of 15 and a PEEP of 5 Reevaluated today on 10/05/2021, patient remains in the ICU, intubated, mechanically ventilated, she is extremely weak, but awake, follows all instructions, she is on pressure control mode of mechanical ventilation, with a pressure control of 16, inspiratory time of 0.9, FiO2 40%, PEEP of 5, her peak airway pressure is 25 plateau pressure is 13. ABG today showed a pO2 of 95 pCO2 of 38 pH of 7.50 however the patient is noted to be pulling less and less tidal volume, hence I increased her pressure control to 22, and she seems to be much better with a tidal volume up to 350 and sometimes 400s range. Patient remains on tube feeding at 35 mL/h using vital AF. Her IV fluid is 0.9 normal saline at 50 mL per hour. Patient is not requiring any pressors, she is not on any sedation, and I am empty to consider the patient for trial of pressure support and CPAP if possible. Again the patient is generally weak, but will give her trials of weaning hopefully beginning tomorrow. CBC today is relatively normal hemoglobin is 8.1. Electrolytes are normal renal profile is normal chest x-ray yesterday showed chronic emphysematous changes, chronic left basilar opacity demonstrated. And no acute change otherwise Reevaluated today on 10/06/2021, remains in the ICU, intubated and mechanically ventilated. Patient was given a trial of pressure support and CPAP yesterday she was on pressure support of 14 and CPAP of 5, tolerated that for about 5-6 hours. Patient was later noted to desaturate, and she was gagging on the tracheostomy tube, becoming a bit agitated, hence she was placed back on the pressure control mode of mechanical ventilation, she is now on pressure control of 22 inspiratory time of 0.9 seconds FiO2 40% PEEP of 5. ABG today showed a pO2 of 105 pCO2 of 36 pH of 7.50. Her peak airway pressure is 28 plateau pressure is 22. Patient is on tube feeding, she is receiving vital AF 42 mL per hour. My plan today is to place the patient back on pressure support of 14 and CPAP, with FiO2 of 40%. Patient is not requiring any sedation, she is not on any major drips. Her IV fluid is 0.9 normal saline at 50 mL per hour. Mentation seems to be much improved compared to baseline, and she continues to do well mentally over the last 24 hours. She is alert, appropriate, follows all simple instructions. Chest x-ray showed chronic changes and chronic left basila r opacity. Not much different compared to the last few days. WBC count is 5.6 hemoglobin is 8.4 electrolytes are normal renal profile is normal ABG showed a pO2 of 105 pCO2 of 36 pH of 7.50. Reevaluated today on 10/07/2021, patient remains in the ICU, intubated and mechanically ventilated. Yesterday the patient went on pressure support 14 and CPAP, and this was tolerated for about 12 hours. Today I plan to place the patient on trach collar. Presently she is on pressure control mode of mechan ical ventilation with a pressure control set at 22 TI of 0.9 FiO2 40% PEEP of 5. Rate is 36. No ABG was done today. Her CBC is relatively unremarkable electrolytes are normal except for low potassium of 3.3 being corrected as per protocol. Patient remains on enteral feeding. No chest x-ray was done today. Patient remains on amiodarone, Eraxis, Eliquis, Tegretol, COVID-19 cocktail, Keppra, metoprolol, Protonix, vancomycin, Seroquel, Reevaluated today on 10/08/2021, patient remains in the ICU, she has been on trach collar now for the last 2 days, seems to be tolerating trach collar quite well. However this morning the patient seems to be a bit restless, tachypnea, ABG was reasonable with a pO2 of 70 pCO2 44 pH of 7.44 and this was on 35% FiO2. But considering the patient seems to be a bit restless, Iressa the patient back on her previous mode of mechanical ventilation. Patient is back on pressure control mode of mechanical ventilation, and seems to be doing a bit better with a pressure control mode of ventilation. We will address the patient possibly for the rest of the day, and place her back on trach collar again. Labs today are unremarkable including electrolytes, renal profile, ABG as noted above. Patient remains on enteral feeding. Remained generally weak and debilitated. Reevaluated today on 10/09/2021, patient remains in the ICU, remains on ventilatory support, she is on pressure control of 22 inspiratory time of 0.9 FiO2 40% PEEP of 5. ABG today showed a pO2 of 131 pCO2 of 31 pH of 7.52. Patient is not requiring any pressors, she is not requiring any drips, no sedation is needed, she is still receiving tube feeding vital HPI 22 mL per hour. Patient had a relatively uneventful night, and we plan to place the patient back on a mode of weaning, and I plan to place her back either on a T piece orotracheal collar today. No ABG was done today. No chest x-ray was done. Chest x-ray from yesterday showed basically no change. Tracheostomy is intact. Reevaluated today on 10/10/2021, patient remains on TP, over the last 24 hours, tolerating weaning very well, seems to be quite agitated, and would like to go home. Patient is getting more agitated with the t piece itself, although she seems to be very comfortable and her O2 saturation is high in the 90s. Went ahead and recommended decannulation of the trach, and I removed the tracheostomy at bedside, and the sutures around the tracheostomy were also removed. Patient felt much better and she was switched to a nasal cannula. WBC count today is 6.6 hemoglobin 8.1 electrodes. Normal except for low potassium be corrected accordingly. Went ahead and discontinued his Eraxis, patient is on vancomycin, and hopefully that will be discontinued by infectious disease today on rounds. No chest x-ray was done today. But I reviewed the chest x-ray from yesterday Objective - Vital Signs Vital signs: Vital Signs Temp 98.2 F 10/10/21 08:00 Pulse 68 10/10/21 10:00 Resp 31 H 10/10/21 10:00 BP 117/67 10/10/21 10:00 Pulse Ox 82 L 10/10/21 10:00 Intake & Output 10/09/21 10/10/21 10/10/21 18:59 06:59 18:59 Intake Total 1846 2030 560 Output Total 1525 2300 890 Balance 321 -270 -330 Weight 61.4 kg 59.6 kg Intake: IV 1550 1550 300 Anidulafungin 100 mg In 100 Sodium Chloride 0.9% 100 ml @ 84 mls/hr IVPB DAILY @1700 [facility] Rx#:[id number] Sodium Chloride 0.9% 1, 1100 1200 300 000 ml @ 100 mls/hr IV . Q10H [facility] Rx#:[id number] Vancomycin 1,000 mg In 250 250 Sodium Chloride 0.9% 250 ml @ 125 mls/hr IVPB Q12HR [facility] Rx#:[id number] levETIRAcetam IV 1,500 mg 100 100 In Saline 1 100ml.bag @ 400 mls/hr IVPB Q12HR [facility] Rx#:[id number] Tube Feeding 296 480 180 Other 80 Output: Urine 1525 2300 890 Other: Voiding Method Indwelling Catheter Indwelling Catheter Indwelling Catheter ABP, PAP, CO, CI - Last Documented Arterial Blood Pressure 123/58 - Exam Physical Exam: Revealed a 51-year-old female intubated, on t peice Head: Atraumatic, normocephalic, tracheostomy tube is in place. HEENT:[Neck is supple.] [No neck masses.] [No thyromegaly.] [No JVD.] Chest: Symmetrical chest expansion, crackles at the bases. Psychiatric: Normal mood, normal affect, normal mental status. Cardiac Exam: [Normal S1 and S2, no S3 gallop, no murmur.] Abdomen: [Soft, nontender, no megaly, no rebound, no guarding, normal bowel sounds.] PEG tube is intact. Extremities: [No clubbing, no edema, no cyanosis.] Skin: No rashes. Neurological Exam: Alert oriented 3 gangrenous focal deficits, gets agitated very easily. - Labs CBC & Chem 7: 10/10/21 07:31 10/10/21 07:31 Labs: Abnormal Lab Results - Last 24 Hours (Table) 10/09/21 10/09/21 10/09/21 Range/Units 11:32 17:54 23:30 RBC (3.80-5.40) m/uL Hgb (11.4-16.0) gm/dL Hct (34.0-46.0) % MCV (80.0-100.0) fL MCHC (31.0-37.0) g/dL Potassium (3.5-5.1) mmol/L Chloride (98-107) mmol/L Creatinine (0.52-1.04) mg/dL Glucose (74-99) mg/dL POC Glucose (mg/dL) 116 H 114 H 102 H (75-99) mg/dL Calcium (8.4-10.2) mg/dL 10/10/21 10/10/21 Range/Units 07:31 07:31 RBC 2.58 L (3.80-5.40) m/uL Hgb 8.1 L (11.4-16.0) gm/dL Hct 26.6 L (34.0-46.0) % MCV 103.1 H (80.0-100.0) fL MCHC 30.4 L (31.0-37.0) g/dL Potassium 3.2 L (3.5-5.1) mmol/L Chloride 108 H (98-107) mmol/L Creatinine 0.36 L (0.52-1.04) mg/dL Glucose 120 H (74-99) mg/dL POC Glucose (mg/dL) (75-99) mg/dL Calcium 8.3 L (8.4-10.2) mg/dL Microbiology - Last 24 Hours (Table) 10/03/21 18:31 Blood Culture - Final Blood No Growth after 144 hours Assessment and Plan Assessment: Impression: Acute hypoxic respiratory failure secondary to COVID-19 pneumonia, intubated on 09/11/2021, status post tracheostomy and PEG tube placement on 09/23, presently on pressure control mode of mechanical ventilation, on t peice today. Altered mental status, acute toxic metabolic encephalopathy. No acute CVA noted on brain CT. significantly improved. Acute COVID-19 pneumonia History of seizure activity. Under control. Previous history of pulmonary embolism, on long-term treatment with Eliquis. Paroxysmal atrial fibrillation Cardiomyopathy and LV dysfunction with ejection fraction of 30-35%. History of pacemaker implantation. 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 Placed patient on nasal cannula. Continue supportive care measures Continue Eliquis. Discontinued in excess. Continue Keppra And Tegretol. continue enteral feeding , via PEG tube. Continue physical therapy. Continue Seroquel.dose was increased to 50 mg twice a day. Patient remains relatively quite ill however now that she is off mechanical ventilation, and she has been De- cannulated, it will be much easier to handle discharge planning. continue to monitor in the ICU Critical care time is over 30 minutes Time with Patient: Greater than 30
[2021-10-10 11:56] LABS: Glucose,Whole Blood 108 mg/dL (75-99)
[2021-10-10] MEDS ORDERED: LORazepam 2 MG/ML INJ IV STA (16:17)
[2021-10-10] MEDS: DEXMEDETOMIDINE/0.9% NACL(PMX) 400 MCG in EMPTY BAG 1 BAG IV SCH (16:35)
[2021-10-10] MEDS: CLEVIDIPINE BUTYRATE 25 MG in EMPTY BAG 1 BAG IV SCH (16:57)
--- NOTE | 2021-10-10 16:58 | XR ---
EXAMINATION TYPE: XR chest 1V portable DATE OF EXAM: 10/10/2021 COMPARISON: 10/08/2021 HISTORY: Hypoxemia. Tracheostomy. TECHNIQUE: Single view FINDINGS: There is tracheostomy tube. There is shift of heart and mediastinum to the left side. Right lung is clear. No heart failure. There is left axillary pacemaker. IMPRESSION: There is development of significant atelectasis in the left lung compared to recent exam and consistent with obstruction of the left lower lobe bronchus.
--- NOTE | 2021-10-10 16:59 | P.PN ---
Subjective Progress Note Date: 10/10/21 *Live* [facility] [place] [address], [place] [address] Progress Note - SOAP Patient Name: Hannah Campos Date of : 72 Patient Status: Inpatient Attending Provider: Garth Auguste Date: 10/08/21 15:45 Initialization Date: 10/08/21 15:45 Subjective Progress Note Date: 10/08/21 Principal diagnosis: Altered mental status Patient is a 51-year-old female presented to the emergency room with altered me ntal status, COVID-19 pneumonia, UTI, seizures and possible stroke. UTI and pneumonia have been treated, and sepsis resolved. 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 Patient has been in the hospital since September 10, 2021 and has had extensive evaluations and treatment. Patient has been followed by multiple consultants including intensive care/pulmonary, neurology, and surgical services. Hospitalists have been providing coverage from 09/10/2021 through 10/05/2021. Patient continues to require mechanical ventilation. Patient is status post PEG tube placement and tracheotomy placement. 10/06/21 Patient was seen and examined at bedside in the ICU. Continues to require mechanical ventilation via tracheostomy. FiO2 40%, PEEP 5, oxygen saturation 96%, blood pressure 149/82. She is alert, responds to name, and follows simple commands. Denies any acute symptoms, unable to speak, replies by shaking her head yes or no. Left-sided paralysis, right-sided weakness able to grasp fingers and wiggle toes on the right. White blood cell count 5.6, kidney function improved the BUN 15, creatinine 0.3, liver enzymes continue to be elevated but improving. Plan was to discharge patient to select specialty, insurance denied, awaiting clearance from social work. 10/07/21 Patient was seen and examined at bedside in ICU. Patient is resting comfortably, in no acute distress. Continues to require mechanical ventilation via tracheostomy. FiO2 40%, PEEP 5, oxygen saturation 95%, blood pressure 119/74. Patient is alert and oriented to self, able to follow simple commands. Continued left-sided paralysis, right-sided weakness. Potassium 3.3, was treated according to protocol. Kidney function remains stable, white count 7.1 today. Still waiting for insurance appeal for transfer to long-term acute care. 10/08/21 patient was seen and examined in ICU. Was up in the chair via rebecca lift, in mild distress. Oxygen saturation was declining to 70% while on trach collar. Patient was trying to say that she can't breathe and she needs help. Nurse and respiratory therapist assisted patient back on mechanical ventilation at previous settings, with improvement of oxygen saturation. Patient was alert and oriented to self.continued right-sided weakness and left-sided par alysis.potassium improved to 3.5.still awaiting insurance appeal for transfer to long-term acute care 10/10/2001 This patient is extubated. Patient is confused. Patient is demanding to go home. Patient does possibly months metabolic encephalopathy. Tracheostomy has been close to. History and closely monitored in ICU. Dr. Gold is following the patient closely. Labs are reviewed. Objective - Vital Signs Arterial Blood Pressure 123/58 - Constitutional General appearance: Present: average body habitus, cooperative, severe distress - EENT Eyes: Present: EOMI, PERRLA ENT: Present: normal oropharynx Ears: bilateral: normal - Neck Details: tracheostomy in place - Respiratory Respiratory: bilateral: diminished - Cardiovascular Heart rate: 140 Heart sounds: normal: S1, S2 - Peripheral pulses radial pulse Peripheral Pulses: bilateral: Normal - Gastrointestinal Gastrointestinal Comment(s): PEG tube in place General gastrointestinal: Present: normal bowel sounds, soft - Integumentary Integumentary: Present: normal, normal turgor - Neurologic Neurologic: Present: focal deficits - Musculoskeletal Musculoskeletal: Present: right sided weakness, left sided weakness (paralysis) - Psychiatric Psychiatric: Present: A&O x's 3, appropriate affect - Allied health notes Allied health notes reviewed: nursing - Labs CBC & Chem 7: Assessment and Plan Assessment: Altered mental status secondary to metabolic encephalopathy, ruled out intercranial lesions Acute hypoxic respiratory failure secondary to COVID-19 pneumonia, still requiring mechanical ventilation Status post tracheostomy and PEG tube placement Sepsis secondary to UTI and COVID-19 pneumonia, resolved with treatment Breakthrough seizure, history of previous seizures Unstageable sacral pressure ulcer Cardiomyopathy, EF of 30-35% Acute kidney injury, improved with treatment History of coronary artery disease history of pulmonary embolism History 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 left foot drop Status post permanent pacemaker History of glaucoma but surgical intervention Full code Plan: was on trach collar for 24 hours, became hypoxic and required mechanical ventilation again, following pulmonary recommendation Antibiotic, vanco, and antifungal treatment for pneumonia per infectious disease recommendations Continue tube feedings, following dietitian recommendations Continue current medication regimen Continue monitoring her mental status for any changes Continue Wound care for unstageable sacral pressure wound Still waiting for insurance approval for transfer to long-term acute care Further recommendations to come based on patient's clinical course We will continue the monitoring. Recommended PTOT evaluation and social work consult. This will discuss with family. Recommended possibly severe rehab. Prognosis guarded. Time with Patient: Greater than 30 Objective - Vital Signs Vital signs: Vital Signs Temp 99.9 F H 10/10/21 12:00 Pulse 59 L 10/10/21 15:15 Resp 18 10/10/21 15:15 BP 150/66 10/10/21 15:15 Pulse Ox 88 L 10/10/21 15:15 Intake & Output 10/09/21 10/10/21 10/10/21 18:59 06:59 18:59 Intake Total 1846 2030 1890.397 Output Total 1525 2300 2280 Balance 321 -270 -389.603 Weight 61.4 kg 59.6 kg Intake: IV 1550 1550 1250 Anidulafungin 100 mg In 100 Sodium Chloride 0.9% 100 ml @ 84 mls/hr IVPB DAILY @1700 [facility] Rx#:[id number] Sodium Chloride 0.9% 1, 1100 1200 900 000 ml @ 100 mls/hr IV . Q10H [facility] Rx#:[id number] Vancomycin 1,000 mg In 250 250 250 Sodium Chloride 0.9% 250 ml @ 125 mls/hr IVPB Q12HR [facility] Rx#:[id number] levETIRAcetam IV 1,500 mg 100 100 100 In Saline 1 100ml.bag @ 400 mls/hr IVPB Q12HR [facility] Rx#:[id number] Intake, IV Titration 0.397 Amount Dexmedetomidine/0.9% NaCl 0.397 (Pmx) 400 mcg In Empty Bag 1 bag @ 0.2 MCG/KG/HR 2.98 mls/hr IV .Q24H [facility] Rx#:[id number] Tube Feeding 296 480 530 Other 110 Output: Urine 1525 2300 2280 Other: Voiding Method Indwelling Catheter Indwelling Catheter Indwelling Catheter ABP, PAP, CO, CI - Last Documented Arterial Blood Pressure 123/58 - Labs CBC & Chem 7: 10/10/21 07:31 10/10/21 07:31 Labs: Abnormal Lab Results - Last 24 Hours (Table) 10/09/21 10/09/21 10/10/21 Range/Units 17:54 23:30 07:31 RBC 2.58 L (3.80-5.40) m/uL Hgb 8.1 L (11.4-16.0) gm/dL Hct 26.6 L (34.0-46.0) % MCV 103.1 H (80.0-100.0) fL MCHC 30.4 L (31.0-37.0) g/dL Potassium (3.5-5.1) mmol/L Chloride (98-107) mmol/L Creatinine (0.52-1.04) mg/dL Glucose (74-99) mg/dL POC Glucose (mg/dL) 114 H 102 H (75-99) mg/dL Calcium (8.4-10.2) mg/dL 10/10/21 10/10/21 Range/Units 07:31 11:54 RBC (3.80-5.40) m/uL Hgb (11.4-16.0) gm/dL Hct (34.0-46.0) % MCV (80.0-100.0) fL MCHC (31.0-37.0) g/dL Potassium 3.2 L (3.5-5.1) mmol/L Chloride 108 H (98-107) mmol/L Creatinine 0.36 L (0.52-1.04) mg/dL Glucose 120 H (74-99) mg/dL POC Glucose (mg/dL) 108 H (75-99) mg/dL Calcium 8.3 L (8.4-10.2) mg/dL Microbiology - Last 24 Hours (Table) 10/03/21 18:31 Blood Culture - Final Blood No Growth after 144 hours
[2021-10-10 17:15] LABS: ABG Base Excess 4.9 mmol/L; ABG HCO3 28 mmol/L (21-25); ABG Oxygen Saturation 97.9 % (94-97); ABG PCO2 38 mmHg (35-45); ABG PH 7.49 (7.35-7.45); ABG PO2 108 mmHg (83-108); ABG TCO2 30 mmol/L (19-24); Allen Test Performed? Yes
[2021-10-10 17:41] LABS: Glucose,Whole Blood 119 mg/dL (75-99)
[2021-10-10] MEDS ORDERED: HYDROmorphone 1 MG/ML 1 ML SYRINGE IVP PRN (17:45)
[2021-10-10] MEDS ORDERED: LORazepam 2 MG/ML INJ IV PRN (17:45)
[2021-10-10] MEDS ORDERED: SODIUM CHLORIDE 0.9% 1,000 ML IV ONE (17:49)
[2021-10-10] MEDS ORDERED: Potassium Replacement Protocol 1 EACH MISC MISCELLANE PRN (18:27)
[2021-10-10] MEDS: POTASSIUM BICARBONATE/CIT AC 20 MEQ TABLET.EFF NG-TUBE SCH ×2 (18:36→20:17)
[2021-10-10 23:52] LABS: Glucose,Whole Blood 131 mg/dL (75-99)
[2021-10-11] MEDS: INSULIN ASPART (NovoLOG) 100 UNIT/ML VIAL SQ SCH ×4 (00:03→18:54)
[2021-10-11] MEDS: NOREPINEPHRINE 4 MG in SODIUM CHLORIDE 0.9% 250 ML IV SCH (05:07)
[2021-10-11 05:54] LABS: Glucose,Whole Blood 100 mg/dL (75-99)
[2021-10-11] MEDS: SODIUM CHLORIDE 0.9% 1,000 ML IV SCH ×2 (07:00→17:28)
[2021-10-11 07:44] LABS: HCT 23.2 % (34.0-46.0); HGB 7.2 gm/dL (11.4-16.0); Hypochromasia Slight; MCH 31.6 pg (25.0-35.0); MCHC 31.3 g/dL (31.0-37.0); MCV 101.1 fL (80.0-100.0); Macrocytosis Slight; Mean Platelet Volume 7.8; Platelet Count 358 k/uL (150-450); RBC 2.29 m/uL (3.80-5.40); RDW 14.8 % (11.5-15.5)
[2021-10-11 07:51] LABS: ABG Base Excess 4.3 mmol/L; ABG HCO3 27 mmol/L (21-25); ABG Oxygen Saturation 98.3 % (94-97); ABG PCO2 34 mmHg (35-45); ABG PH 7.51 (7.35-7.45); ABG PO2 105 mmHg (83-108); ABG TCO2 28 mmol/L (19-24); Allen Test Performed? Yes
[2021-10-11 07:52] LABS: ALT 38 U/L (4-34); AST 27 U/L (14-36); African American GFR (CKD) >90 (>60 ml/min/1.73 sqM); Albumin 2.3 g/dL (3.5-5.0); Alkaline Phosphatase 69 U/L (38-126); Anion Gap 2 mmol/L; Blood Urea Nitrogen 12 mg/dL (7-17); Calcium 8.1 mg/dL (8.4-10.2); Carbon Dioxide 26 mmol/L (22-30); Chloride 109 mmol/L (98-107); Glucose 104 mg/dL (74-99); Non-African American GFR(CKD) >90 (>60 ml/min/1.73 sqM); Potassium 3.5 mmol/L (3.5-5.1); Sodium 137 mmol/L (137-145); Total Bilirubin 0.4 mg/dL (0.2-1.3); Total Protein 5.3 g/dL (6.3-8.2)
--- NOTE | 2021-10-11 08:09 | XR ---
EXAMINATION TYPE: XR chest 1V portable DATE OF EXAM: 10/11/2021 COMPARISON: 10/10/2021 INDICATION: Left lower lobe collapse, atelectasis TECHNIQUE: Single frontal view of the chest is obtained. FINDINGS: The heart size is normal. The pulmonary vasculature is normal. There is mild increased central lung markings. Previous left lower lobe opacity is largely resolved. Small left pleural effusion or residual atelectasis may be present. Pacemaker overlies the left lower chest. Tracheostomy tube is in the midline. PICC line enters from the right with the tip in the supe rior vena cava region IMPRESSION: 1. Improving left lower lobe atelectasis. Mild residual or pleural effusion remain the left base.
[2021-10-11] MEDS: CHOLECALCIFEROL 125 MCG (5000 IU) TABLET PO SCH (08:14)
[2021-10-11] MEDS: APIXABAN 5 MG TAB PO SCH ×2 (08:15→20:32)
[2021-10-11] MEDS: AMIODARONE 200 MG TAB PO SCH (08:15)
[2021-10-11] MEDS: POTASSIUM BICARBONATE/CIT AC 20 MEQ TABLET.EFF NG-TUBE SCH ×2 (08:16→09:55)
[2021-10-11] MEDS: PANTOPRAZOLE 40 MG/10 ML VIAL IV SCH (08:16)
[2021-10-11] MEDS: CHLORHEXIDINE GLUCONATE 15 ML CUP MUCOUS MEM SCH ×2 (08:17→20:32)
[2021-10-11] MEDS: METOPROLOL TARTRATE 25 MG TAB PO SCH ×2 (08:18→20:32)
[2021-10-11] MEDS: QUEtiapine 50 MG TAB PO SCH ×2 (08:23→20:32)
[2021-10-11] MEDS: levETIRAcetam IV 1,500 MG in SALINE 1 100ML.BAG IVPB SCH ×2 (08:23→20:32)
[2021-10-11] MEDS: carBAMazepine 200 MG TAB PO SCH ×3 (08:23→21:00)
--- NOTE | 2021-10-11 08:56 | P.PN ---
Subjective Progress Note Date: 10/10/21 Principal diagnosis: Pneumonia pressure ulcer and multiple antibiotic allergies Patient is a 51-year-old female presenting to the hospital on September 10 for mental status changes patient did have a evidence of COVID-19 infection, with respiratory failure requiring intubation also with E. coli UTI and the patient did have multiple antibiotic allergies. The patient is status post tracheostomy and PEG tube placement on 09/23/2021 On today's evaluation that is to to 10/10/2021, patient continues to be afebrile, the patient is hemodynamically stable not requiring pressor support, the patient is breathing comfortably on trach collar patient been tolerating her tube feeds and no diarrhea has been reported by the nursing staff patient is awake and alert mention she wants to go home Objective - Vital Signs Vital signs: Vital Signs Temp 98.2 F 10/10/21 08:00 Pulse 92 10/10/21 11:00 Resp 28 H 10/10/21 11:00 BP 130/67 10/10/21 11:00 Pulse Ox 100 10/10/21 11:00 Intake & Output 10/09/21 10/10/21 10/10/21 18:59 06:59 18:59 Intake Total 1846 2030 1160 Output Total 1525 2300 1360 Balance 321 -270 -200 Weight 61.4 kg 59.6 kg Intake: IV 1550 1550 850 Anidulafungin 100 mg In 100 Sodium Chloride 0.9% 100 ml @ 84 mls/hr IVPB DAILY @1700 ADDIE Rx#:[id number] Sodium Chloride 0.9% 1, 1100 1200 500 000 ml @ 100 mls/hr IV . Q10H ADDIE Rx#:[id number] Vancomycin 1,000 mg In 250 250 250 Sodium Chloride 0.9% 250 ml @ 125 mls/hr IVPB Q12HR ADDIE Rx#:[id number] levETIRAcetam IV 1,500 mg 100 100 100 In Saline 1 100ml.bag @ 400 mls/hr IVPB Q12HR ADDIE Rx#:[id number] Tube Feeding 296 480 230 Other 80 Output: Urine 1525 2300 1360 Other: Voiding Method Indwelling Catheter Indwelling Catheter Indwelling Catheter ABP, PAP, CO, CI - Last Documented Arterial Blood Pressure 123/58 - Exam GENERAL DESCRIPTION: Middle-aged male intubated on the vent, no distress. No tachypnea or accessory muscle of respiration use. LUNGS: Unlabored breathing. Coarse breath sound at the base. No wheeze or crackle. HEART: S1, S2, regular rate and rhythm. No loud murmur ABDOMEN: Soft, no tenderness , EXTREMITIES: No edema of feet. - Labs CBC & Chem 7: 10/11/21 07:20 10/11/21 07:20 Labs: Abnormal Lab Results - Last 24 Hours (Table) 10/09/21 10/09/21 10/10/21 Range/Units 17:54 23:30 07:31 RBC 2.58 L (3.80-5.40) m/uL Hgb 8.1 L (11.4-16.0) gm/dL Hct 26.6 L (34.0-46.0) % MCV 103.1 H (80.0-100.0) fL MCHC 30.4 L (31.0-37.0) g/dL Potassium (3.5-5.1) mmol/L Chloride (98-107) mmol/L Creatinine (0.52-1.04) mg/dL Glucose (74-99) mg/dL POC Glucose (mg/dL) 114 H 102 H (75-99) mg/dL Calcium (8.4-10.2) mg/dL 10/10/21 10/10/21 Range/Units 07:31 11:54 RBC (3.80-5.40) m/uL Hgb (11.4-16.0) gm/dL Hct (34.0-46.0) % MCV (80.0-100.0) fL MCHC (31.0-37.0) g/dL Potassium 3.2 L (3.5-5.1) mmol/L Chloride 108 H (98-107) mmol/L Creatinine 0.36 L (0.52-1.04) mg/dL Glucose 120 H (74-99) mg/dL POC Glucose (mg/dL) 108 H (75-99) mg/dL Calcium 8.3 L (8.4-10.2) mg/dL Microbiology - Last 24 Hours (Table) 10/03/21 18:31 Blood Culture - Final Blood No Growth after 144 hours Assessment and Plan (1) Pneumonia Current Visit: Yes Status: Acute Code(s): J18.9 - PNEUMONIA, UNSPECIFIED ORGANISM SNOMED Code(s): 400653563 (2) Allergy to multiple antibiotics Current Visit: Yes Status: Acute Code(s): Z88.1 - ALLERGY STATUS TO OTHER ANTIBIOTIC AGENTS SNOMED Code(s): 602723419 (3) COVID-19 Current Visit: Yes Status: Acute Code(s): U07.1 - COVID-19 SNOMED Code(s): 242576341 Plan: 1-patient with unstageable sacral pressure ulcer as well as unstageable pressure ulcer to the upper back area, local wound care with the medahoney followed by moist dressing and keep the area off the pressure, left elbow pressure ulcer stage II with no cellulitis local wound care with a dry with Aquacel silver dressing and keep the area off the pressure 2-Patient with acute respiratory failure which is multifactorial in this patient who did have a covid19 pneumonia and a concern for possible secondary bacterial pneumonia , patient did have new fever on 10/03/2021 with concern for possible PICC line infection blood cultures were obtained from the PICC line has been negative so far and she would discontinue the vancomycin and monitor the patient closely off antibiotics. 3-patient sputum did grow Radha, could be colonizer versus oropharyngeal candidiasis patient to continue with Eraxis, and monitor clinical course closely Time with Patient: Less than 30
--- NOTE | 2021-10-11 10:19 | P.PN ---
Subjective Progress Note Date: 10/11/21 Principal diagnosis: Acute COVID-19 pneumonia with acute hypoxic respiratory failure and altered mental status. 10/04/2021, the patient is being seen in follow-up in the intensive care unit. This morning, the patient remains off sedation. She is awake and alert. She remains on a pressure control mode of mechanical ventilation. She is at the rate of 16 with a pressure control of 18 with an FiO2 of 40% with a PEEP of 5. No blood gases available from today. Chest x-ray showing stable findings with a persistent left lower lobe effusion/consolidation. The patient started spiking temperature as of yesterday. T-max was at 11.9. She is still febrile with a temperature 100.1. I was not informed of this changes and the focal went right away to infectious disease. The patient was given 2 sets of blood cultures. Noted the patient was already receiving a combination of vancomycin and Eraxis. That is his sputum culture is still showing Radha. The patient has a PICC line in her right upper extremity. The exit site is dry clean and intact. No diarrhea. No other clear source of infection at this point in time. Infections on the case. Pro-calcitonin level will be checked. She remains hemodynamically stable. She is on no pressors. Cardiac rhythm is sinus with frequent PACs and PVCs. Fluid balance has been +1.2 L over the past 24 hours. Note that the patient's weaning parameters of the persistently weak. Nevertheless, she was able to tolerate a full total of 4 hours a pressure support mode of mechanical ventilation with a pressure support of 15 and a PEEP of 5 Reevaluated today on 10/05/2021, patient remains in the ICU, intubated, mechanically ventilated, she is extremely weak, but awake, follows all instructions, she is on pressure control mode of mechanical ventilation, with a pressure control of 16, inspiratory time of 0.9, FiO2 40%, PEEP of 5, her peak airway pressure is 25 plateau pressure is 13. ABG today showed a pO2 of 95 pCO2 of 38 pH of 7.50 however the patient is noted to be pulling less and less tidal volume, hence I increased her pressure control to 22, and she seems to be much better with a tidal volume up to 350 and sometimes 400s range. Patient remains on tube feeding at 35 mL/h using vital AF. Her IV fluid is 0.9 normal saline at 50 mL per hour. Patient is not requiring any pressors, she is not on any sedation, and I am empty to consider the patient for trial of pressure support and CPAP if possible. Again the patient is generally weak, but will give her trials of weaning hopefully beginning tomorrow. CBC today is relatively normal hemoglobin is 8.1. Electrolytes are normal renal profile is normal chest x-ray yesterday showed chronic emphysematous changes, chronic left basilar opacity demonstrated. And no acute change otherwise Reevaluated today on 10/06/2021, remains in the ICU, intubated and mechanically ventilated. Patient was given a trial of pressure support and CPAP yesterday she was on pressure support of 14 and CPAP of 5, tolerated that for about 5-6 hours. Patient was later noted to desaturate, and she was gagging on the tracheostomy tube, becoming a bit agitated, hence she was placed back on the pressure control mode of mechanical ventilation, she is now on pressure control of 22 inspiratory time of 0.9 seconds FiO2 40% PEEP of 5. ABG today showed a pO2 of 105 pCO2 of 36 pH of 7.50. Her peak airway pressure is 28 plateau pressure is 22. Patient is on tube feeding, she is receiving vital AF 42 mL per hour. My plan today is to place the patient back on pressure support of 14 and CPAP, with FiO2 of 40%. Patient is not requiring any sedation, she is not on any major drips. Her IV fluid is 0.9 normal saline at 50 mL per hour. Mentation seems to be much improved compared to baseline, and she continues to do well mentally over the last 24 hours. She is alert, appropriate, follows all simple instructions. Chest x-ray showed chronic changes and chronic left basila r opacity. Not much different compared to the last few days. WBC count is 5.6 hemoglobin is 8.4 electrolytes are normal renal profile is normal ABG showed a pO2 of 105 pCO2 of 36 pH of 7.50. Reevaluated today on 10/07/2021, patient remains in the ICU, intubated and mechanically ventilated. Yesterday the patient went on pressure support 14 and CPAP, and this was tolerated for about 12 hours. Today I plan to place the patient on trach collar. Presently she is on pressure control mode of mechan ical ventilation with a pressure control set at 22 TI of 0.9 FiO2 40% PEEP of 5. Rate is 36. No ABG was done today. Her CBC is relatively unremarkable electrolytes are normal except for low potassium of 3.3 being corrected as per protocol. Patient remains on enteral feeding. No chest x-ray was done today. Patient remains on amiodarone, Eraxis, Eliquis, Tegretol, COVID-19 cocktail, Keppra, metoprolol, Protonix, vancomycin, Seroquel, Reevaluated today on 10/08/2021, patient remains in the ICU, she has been on trach collar now for the last 2 days, seems to be tolerating trach collar quite well. However this morning the patient seems to be a bit restless, tachypnea, ABG was reasonable with a pO2 of 70 pCO2 44 pH of 7.44 and this was on 35% FiO2. But considering the patient seems to be a bit restless, Iressa the patient back on her previous mode of mechanical ventilation. Patient is back on pressure control mode of mechanical ventilation, and seems to be doing a bit better with a pressure control mode of ventilation. We will address the patient possibly for the rest of the day, and place her back on trach collar again. Labs today are unremarkable including electrolytes, renal profile, ABG as noted above. Patient remains on enteral feeding. Remained generally weak and debilitated. Reevaluated today on 10/09/2021, patient remains in the ICU, remains on ventilatory support, she is on pressure control of 22 inspiratory time of 0.9 FiO2 40% PEEP of 5. ABG today showed a pO2 of 131 pCO2 of 31 pH of 7.52. Patient is not requiring any pressors, she is not requiring any drips, no sedation is needed, she is still receiving tube feeding vital HPI 22 mL per hour. Patient had a relatively uneventful night, and we plan to place the patient back on a mode of weaning, and I plan to place her back either on a T piece orotracheal collar today. No ABG was done today. No chest x-ray was done. Chest x-ray from yesterday showed basically no change. Tracheostomy is intact. Reevaluated today on 10/10/2021, patient remains on TP, over the last 24 hours, tolerating weaning very well, seems to be quite agitated, and would like to go home. Patient is getting more agitated with the t piece itself, although she seems to be very comfortable and her O2 saturation is high in the 90s. Went ahead and recommended decannulation of the trach, and I removed the tracheostomy at bedside, and the sutures around the tracheostomy were also removed. Patient felt much better and she was switched to a nasal cannula. WBC count today is 6.6 hemoglobin 8.1 electrodes. Normal except for low potassium be corrected accordingly. Went ahead and discontinued his Eraxis, patient is on vancomycin, and hopefully that will be discontinued by infectious disease today on rounds. No chest x-ray was done today. But I reviewed the chest x-ray from yesterday Reevaluated today on 10/11/2021, patient remains in the ICU, yesterday I D cannulated the patient, however few hours later, the patient developed left lower lobe atelectasis/collapse, and she was having hard time breathing, she cou ld not clear any of her secretions. Patient was very weak, and she had a very ineffective cough. I was notified about this patient by the nurse and by respiratory therapy, I recommended that the patient gets her trach placed back again. And this time she is to have a size 6 a size 7 Shiley tube placed by respiratory therapy. Indeed the patient had a size 6 placed, placed back on mechanical ventilation overnight, since she was agitated we added Precedex overnight. Remains on the vent overnight, and she is on Precedex. Her ABG today showed a pO2 of 105, pCO2 34 pH of 7.51. This was on assist control mode of mechanical ventilation, she was on rate of 28 tidal volume 400 FiO2 40% and PEEP of 8. Then I recommended that we give the patient today another trial on trach collar but she is to be suctioned if she develops any shortness of breath or she develops worsening secretions. Patient remains on vital AF at 60 mL/h she was on a very low dose of norepinephrine at 0.02 which I have discontinued this morning. Chest x-ray is showing dramatic improvement in her left lower lobe atelectasis/collapse. But it is not fully completely resolved. Nonetheless the patient continues to have minimal atelectasis at the left base. WBC count today is 7 hemoglobin 7.2 electrolytes are normal renal profile is normal. Objective - Vital Signs Vital signs: Vital Signs Temp 97.5 F L 10/11/21 04:00 Pulse 82 10/11/21 10:00 Resp 28 H 10/11/21 10:00 BP 102/56 10/11/21 10:00 Pulse Ox 97 10/11/21 10:00 Intake & Output 10/10/21 10/11/21 10/11/21 18:59 06:59 18:59 Intake Total 2316.456 1850.757 839.949 Output Total 2375 520 190 Balance -58.544 1330.757 649.949 Weight 60 kg Intake: IV 1450 1200 500 Sodium Chloride 0.9% 1, 1100 1200 400 000 ml @ 100 mls/hr IV . Q10H [facility] Rx#:[id number] Vancomycin 1,000 mg In 250 Sodium Chloride 0.9% 250 ml @ 125 mls/hr IVPB Q12HR ADDIE Rx#:[id number] levETIRAcetam IV 1,500 mg 100 100 In Saline 1 100ml.bag @ 400 mls/hr IVPB Q12HR ADDIE Rx#:[id number] Intake, IV Titration 6.456 0.757 79.949 Amount Dexmedetomidine/0.9% NaCl 6.456 68.291 (Pmx) 400 mcg In Empty Bag 1 bag @ 0.2 MCG/KG/HR 2.98 mls/hr IV .Q24H ADDIE Rx#:[id number] Norepinephrine 4 mg In 0.757 11.658 Sodium Chloride 0.9% 250 ml @ 0.05 MCG/KG/MIN 11. 354 mls/hr IV .[id number] ADDIE Rx#:[id number] Tube Feeding 680 650 230 Other 180 30 Output: Urine 2375 520 190 Other: Voiding Method Indwelling Catheter Indwelling Catheter ABP, PAP, CO, CI - Last Documented Arterial Blood Pressure 123/58 - Exam Physical Exam: Revealed a 51-year-old female intubated, on mechanical ventilation. Awake alert oriented 3. She is on Precedex. Head: Atraumatic, normocephalic, tracheostomy tube is in place. Patient has a new size 6 Shiley tracheostomy tube. HEENT:[Neck is supple.] [No neck masses.] [No thyromegaly.] [No JVD.] Chest: Symmetrical chest expansion, crackles at the bases. Psychiatric: Normal mood, normal affect, normal mental status. Cardiac Exam: [Normal S1 and S2, no S3 gallop, no murmur.] Abdomen: [Soft, nontender, no megaly, no rebound, no guarding, normal bowel sounds.] PEG tube is intact. Extremities: [No clubbing, no edema, no cyanosis.] Skin: No rashes. Neurological Exam: Alert oriented 3 no focal deficit. - Labs CBC & Chem 7: 10/11/21 07:20 10/11/21 07:20 Labs: Abnormal Lab Results - Last 24 Hours (Table) 10/10/21 10/10/21 10/10/21 Range/Units 11:54 17:13 17:39 RBC (3.80-5.40) m/uL Hgb (11.4-16.0) gm/dL Hct (34.0-46.0) % MCV (80.0-100.0) fL ABG pH 7.49 H (7.35-7.45) ABG pCO2 (35-45) mmHg ABG HCO3 28 H (21-25) mmol/L ABG Total CO2 30 H (19-24) mmol/L ABG O2 Saturation 97.9 H (94-97) % Chloride (98-107) mmol/L Creatinine (0.52-1.04) mg/dL Glucose (74-99) mg/dL POC Glucose (mg/dL) 108 H 119 H (75-99) mg/dL Calcium (8.4-10.2) mg/dL ALT (4-34) U/L Total Protein (6.3-8.2) g/dL Albumin (3.5-5.0) g/dL 10/10/21 10/11/21 10/11/21 Range/Units 23:49 05:52 07:20 RBC 2.29 L (3.80-5.40) m/uL Hgb 7.2 L (11.4-16.0) gm/dL Hct 23.2 L (34.0-46.0) % MCV 101.1 H (80.0-100.0) fL ABG pH (7.35-7.45) ABG pCO2 (35-45) mmHg ABG HCO3 (21-25) mmol/L ABG Total CO2 (19-24) mmol/L ABG O2 Saturation (94-97) % Chloride (98-107) mmol/L Creatinine (0.52-1.04) mg/dL Glucose (74-99) mg/dL POC Glucose (mg/dL) 131 H 100 H (75-99) mg/dL Calcium (8.4-10.2) mg/dL ALT (4-34) U/L Total Protein (6.3-8.2) g/dL Albumin (3.5-5.0) g/dL 10/11/21 10/11/21 Range/Units 07:20 07:49 RBC (3.80-5.40) m/uL Hgb (11.4-16.0) gm/dL Hct (34.0-46.0) % MCV (80.0-100.0) fL ABG pH 7.51 H (7.35-7.45) ABG pCO2 34 L (35-45) mmHg ABG HCO3 27 H (21-25) mmol/L ABG Total CO2 28 H (19-24) mmol/L ABG O2 Saturation 98.3 H (94-97) % Chloride 109 H (98-107) mmol/L Creatinine 0.36 L (0.52-1.04) mg/dL Glucose 104 H (74-99) mg/dL POC Glucose (mg/dL) (75-99) mg/dL Calcium 8.1 L (8.4-10.2) mg/dL ALT 38 H (4-34) U/L Total Protein 5.3 L (6.3-8.2) g/dL Albumin 2.3 L (3.5-5.0) g/dL Assessment and Plan Assessment: Impression: Acute hypoxic respiratory failure secondary to COVID-19 pneumonia, intubated on 09/11/2021, status post tracheostomy and PEG tube placement on 09/23, presently on pressure control mode of mechanical ventilation, on t peice today. Altered mental status, acute toxic metabolic encephalopathy. No acute CVA noted on brain CT. significantly improved. Acute COVID-19 pneumonia History of seizure activity. Under control. Previous history of pulmonary embolism, on long-term treatment with Eliquis. Paroxysmal atrial fibrillation Cardiomyopathy and LV dysfunction with ejection fraction of 30-35%. History of pacemaker implantation. History of saccular SALON COORDINATOR aneurysm 4 mm Hypothyroidism Coronary artery disease History of CVA in 2008 History of psoriasis Sacral /coccygeal decubitus ulcer, unstageable. Recommendation: Continue ventilatory support, however I plan to go back on trach collar today trial as long as tolerates. Patient failed decannulation yesterday. Continue supportive care measures Continue Precedex, avoid narcotics and Ativan possible. Continue Eliquis. Continue Keppra And Tegretol. continue enteral feeding , via PEG tube. Continue physical therapy. Continue Seroquel continue to monitor in the ICU Continue plans for placement, patient may eventually require discharge on trach collar and she it would be difficult to decannulate her , and I wouldn't attempt doing that anytime soon Critical care time is over 30 minutes Time with Patient: Greater than 30
[2021-10-11 12:39] LABS: Glucose,Whole Blood 129 mg/dL (75-99)
[2021-10-11 13:31] LABS: Glucose,Whole Blood 118 mg/dL (75-99)
[2021-10-11] MEDS: CLEVIDIPINE BUTYRATE 25 MG in EMPTY BAG 1 BAG IV SCH (16:32)
[2021-10-11] MEDS: DEXMEDETOMIDINE/0.9% NACL(PMX) 400 MCG in EMPTY BAG 1 BAG IV SCH (17:25)
--- NOTE | 2021-10-11 18:14 | P.PN ---
Subjective *Live* Gertrudis Blackwell [address], [place] [address] Progress Note - SOAP Patient Name: Hannah Campos Date of : 72 Patient Status: Inpatient Attending Provider: Garth Auguste Date: 10/08/21 15:45 Initialization Date: 10/08/21 15:45 Subjective Progress Note Date: 10/08/21 Principal diagnosis: Altered mental status Patient is a 51-year-old female presented to the emergency room with altered mental status, COVID-19 pneumonia, UTI, seizures and possible stroke. UTI and pneumonia have been treated, and sepsis resolved. Patient has a pertinent med ica history of coronary artery disease, heart failure, CVA with residual left- sided weakness and left foot drop, pneumonia, pulmonary embolism, seizure disorder, anxiety, depression, cigarette smoker, and post permanent pacemaker. Patient has been in the hospital since September 10, 2021 and has had extensive evaluations and treatment. Patient has been followed by multiple consultants including intensive care/pulmonary, neurology, and surgical services. Hospitalists have been providing coverage from 09/10/2021 through 10/05/2021. Patient continues to require mechanical ventilation. Patient is status post PEG tube placement and tracheotomy placement. 10/06/21 Patient was seen and examined at bedside in the ICU. Continues to require mechanical ventilation via tracheostomy. FiO2 40%, PEEP 5, oxygen saturation 96%, blood pressure 149/82. She is alert, responds to name, and follows simple commands. Denies any acute symptoms, unable to speak, replies by shaking her head yes or no. Left-sided paralysis, right-sided weakness able to grasp fingers and wiggle toes on the right. White blood cell count 5.6, kidney function improved the BUN 15, creatinine 0.3, liver enzymes continue to be elevated but improving. Plan was to discharge patient to select specialty, insurance denied, awaiting clearance from social work. 10/07/21 Patient was seen and examined at bedside in ICU. Patient is resting comfortably, in no acute distress. Continues to require mechanical ventilation via tracheostomy. FiO2 40%, PEEP 5, oxygen saturation 95%, blood pressure 119/74. Patient is alert and oriented to self, able to follow simple commands. Continued left-sided paralysis, right-sided weakness. Potassium 3.3, was treated according to protocol. Kidney function remains stable, white count 7.1 today. Still waiting for insurance appeal for transfer to long-term acute care. 10/08/21 patient was seen and examined in ICU. Was up in the chair via rebecca lift, in mild distress. Oxygen saturation was declining to 70% while on trach collar. Patient was trying to say that she can't breathe and she needs help. Nurse and respiratory therapist assisted patient back on mechanical ventilation at p revious settings, with improvement of oxygen saturation. Patient was alert and oriented to self.continued right-sided weakness and left-sided paralysis.potassium improved to 3.5.still awaiting insurance appeal for transfer to long-term acute care 10/10/2001 This patient is extubated. Patient is confused. Patient is demanding to go home. Patient does possibly months metabolic encephalopathy. Tracheostomy has been close to. History and closely monitored in ICU. Dr. Gold is following the patient closely. Labs are reviewed. 10/11/2021 The patient was extubated yesterday. The patient has to be reintubated because of agitation and hypoxia and other issues. Patient also had abnormal left lower lobe chest x-ray. Patient is on no broad-spectrum IV antibiotics. Patient is being closely monitored in ICU. Patient has Cortef PEEP of [address] Gold is following the patient closely. Objective - Vital Signs Arterial Blood Pressure 123/58 - Constitutional General appearance: Present: average body habitus, cooperative, severe distress - EENT Eyes: Present: EOMI, PERRLA ENT: Present: normal oropharynx Ears: bilateral: normal - Neck Details: tracheostomy in place - Respiratory Respiratory: bilateral: diminished - Cardiovascular Heart rate: 140 Heart sounds: normal: S1, S2 - Peripheral pulses radial pulse Peripheral Pulses: bilateral: Normal - Gastrointestinal Gastrointestinal Comment(s): PEG tube in place General gastrointestinal: Present: normal bowel sounds, soft - Integumentary Integumentary: Present: normal, normal turgor - Neurologic Neurologic: Present: focal deficits - Musculoskeletal Musculoskeletal: Present: right sided weakness, left sided weakness (paralysis) - Psychiatric Psychiatric: Present: A&O x's 3, appropriate affect - Allied health notes Allied health notes reviewed: nursing - Labs CBC & Chem 7: Assessment and Plan Assessment: Altered mental status secondary to metabolic encephalopathy, ruled out intercranial lesions Acute hypoxic respiratory failure secondary to COVID-19 pneumonia, still requiring mechanical ventilation Status post tracheostomy and PEG tube placement Sepsis secondary to UTI and COVID-19 pneumonia, resolved with treatment Breakthrough seizure, history of previous seizures Unstageable sacral pressure ulcer Cardiomyopathy, EF of 30-35% Acute kidney injury, improved with treatment History of coronary artery disease history of pulmonary embolism History 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 left foot drop Status post permanent pacemaker History of glaucoma but surgical intervention Full code Plan: was on trach collar for 24 hours, became hypoxic and required mechanical ventilation again, following pulmonary recommendation Antibiotic, vanco, and antifungal treatment for pneumonia per infectious disease recommendations Continue tube feedings, following dietitian recommendations Continue current medication regimen Continue monitoring her mental status for any changes Continue Wound care for unstageable sacral pressure wound Still waiting for insurance approval for transfer to long-term acute care Further recommendations to come based on patient's clinical course We will continue the monitoring. Recommended PTOT evaluation and social work consult. This will discuss with family. Recommended possibly severe rehab. Prognosis guarded. Time with Patient: Greater than 30 Assessment earlier patient does has to be reintubated. Attempts for weaning no per pulmonary. Prognosis guarded because of multiple comes medical issues. Objective - Vital Signs Vital signs: Vital Signs Temp 98.7 F 10/11/21 16:00 Pulse 89 10/11/21 17:00 Resp 30 H 10/11/21 17:00 BP 118/79 10/11/21 17:00 Pulse Ox 89 L 10/11/21 17:00 Intake & Output 10/10/21 10/11/21 10/11/21 18:59 06:59 18:59 Intake Total 2316.456 8511.733 3692.822 Output Total 2375 520 750 Balance -58.544 1519.170 5950.822 Weight 60 kg Intake: IV 1450 1200 1100 Sodium Chloride 0.9% 1, 1100 1200 1000 000 ml @ 100 mls/hr IV . Q10H [facility] Rx#:[id number] Vancomycin 1,000 mg In 250 Sodium Chloride 0.9% 250 ml @ 125 mls/hr IVPB Q12HR [facility] Rx#:[id number] levETIRAcetam IV 1,500 mg 100 100 In Saline 1 100ml.bag @ 400 mls/hr IVPB Q12HR [facility] Rx#:[id number] Intake, IV Titration 6.456 0.757 98.822 Amount Dexmedetomidine/0.9% NaCl 6.456 87.164 (Pmx) 400 mcg In Empty Bag 1 bag @ 0.2 MCG/KG/HR 2.98 mls/hr IV .Q24H [facility] Rx#:[id number] Norepinephrine 4 mg In 0.757 11.658 Sodium Chloride 0.9% 250 ml @ 0.05 MCG/KG/MIN 11. 354 mls/hr IV .[id number] [facility] Rx#:[id number] Tube Feeding 680 650 590 Other 180 60 Output: Urine 2375 520 750 Other: Voiding Method Indwelling Catheter Indwelling Catheter Indwelling Catheter # Bowel Movements 1 ABP, PAP, CO, CI - Last Documented Arterial Blood Pressure 123/58 - Labs CBC & Chem 7: 10/11/21 07:20 10/11/21 07:20 Labs: Abnormal Lab Results - Last 24 Hours (Table) 10/10/21 10/11/21 10/11/21 Range/Units 23:49 05:52 07:20 RBC 2.29 L (3.80-5.40) m/uL Hgb 7.2 L (11.4-16.0) gm/dL Hct 23.2 L (34.0-46.0) % MCV 101.1 H (80.0-100.0) fL ABG pH (7.35-7.45) ABG pCO2 (35-45) mmHg ABG HCO3 (21-25) mmol/L ABG Total CO2 (19-24) mmol/L ABG O2 Saturation (94-97) % Chloride (98-107) mmol/L Creatinine (0.52-1.04) mg/dL Glucose (74-99) mg/dL POC Glucose (mg/dL) 131 H 100 H (75-99) mg/dL Calcium (8.4-10.2) mg/dL ALT (4-34) U/L Total Protein (6.3-8.2) g/dL Albumin (3.5-5.0) g/dL 10/11/21 10/11/21 10/11/21 Range/Units 07:20 07:49 12:27 RBC (3.80-5.40) m/uL Hgb (11.4-16.0) gm/dL Hct (34.0-46.0) % MCV (80.0-100.0) fL ABG pH 7.51 H (7.35-7.45) ABG pCO2 34 L (35-45) mmHg ABG HCO3 27 H (21-25) mmol/L ABG Total CO2 28 H (19-24) mmol/L ABG O2 Saturation 98.3 H (94-97) % Chloride 109 H (98-107) mmol/L Creatinine 0.36 L (0.52-1.04) mg/dL Glucose 104 H (74-99) mg/dL POC Glucose (mg/dL) 129 H (75-99) mg/dL Calcium 8.1 L (8.4-10.2) mg/dL ALT 38 H (4-34) U/L Total Protein 5.3 L (6.3-8.2) g/dL Albumin 2.3 L (3.5-5.0) g/dL 10/11/21 Range/Units 13:29 RBC (3.80-5.40) m/uL Hgb (11.4-16.0) gm/dL Hct (34.0-46.0) % MCV (80.0-100.0) fL ABG pH (7.35-7.45) ABG pCO2 (35-45) mmHg ABG HCO3 (21-25) mmol/L ABG Total CO2 (19-24) mmol/L ABG O2 Saturation (94-97) % Chloride (98-107) mmol/L Creatinine (0.52-1.04) mg/dL Glucose (74-99) mg/dL POC Glucose (mg/dL) 118 H (75-99) mg/dL Calcium (8.4-10.2) mg/dL ALT (4-34) U/L Total Protein (6.3-8.2) g/dL Albumin (3.5-5.0) g/dL
[2021-10-11] MEDS: ACETAMINOPHEN TAB 325 MG TAB PO PRN (18:33)
[2021-10-11 19:04] LABS: Glucose,Whole Blood 110 mg/dL (75-99)
--- NOTE | 2021-10-11 20:35 | P.PN ---
Subjective Progress Note Date: 10/11/21 Principal diagnosis: Pneumonia pressure ulcer and multiple antibiotic allergies Patient is a 51-year-old female presenting to the hospital on September 10 for mental status changes patient did have a evidence of COVID-19 infection, with respiratory failure requiring intubation also with E. coli UTI and the patient did have multiple antibiotic allergies. The patient is status post tracheostomy and PEG tube placement on 09/23/2021 On today's evaluation that is to to 10/11/2021, patient remains to be afebrile, the patient is hemodynamically stable not requiring pressor support, the patient is back on the ventilator, patient been tolerating her tube feeds and no diar antonio has been reported by the nursing staff Objective - Vital Signs Vital signs: Vital Signs Temp 98.7 F 10/11/21 16:00 Pulse 93 10/11/21 16:00 Resp 24 10/11/21 16:00 BP 103/61 10/11/21 16:00 Pulse Ox 97 10/11/21 16:00 Intake & Output 10/10/21 10/11/21 10/11/21 18:59 06:59 18:59 Intake Total 2316.456 1099.489 1590.949 Output Total 2375 520 750 Balance -58.544 9446.088 0258.949 Weight 60 kg Intake: IV 1450 1200 1100 Sodium Chloride 0.9% 1, 1100 1200 1000 000 ml @ 100 mls/hr IV . Q10H [facility] Rx#:[id number] Vancomycin 1,000 mg In 250 Sodium Chloride 0.9% 250 ml @ 125 mls/hr IVPB Q12HR [facility] Rx#:[id number] levETIRAcetam IV 1,500 mg 100 100 In Saline 1 100ml.bag @ 400 mls/hr IVPB Q12HR [facility] Rx#:[id number] Intake, IV Titration 6.456 0.757 79.949 Amount Dexmedetomidine/0.9% NaCl 6.456 68.291 (Pmx) 400 mcg In Empty Bag 1 bag @ 0.2 MCG/KG/HR 2.98 mls/hr IV .Q24H [facility] Rx#:[id number] Norepinephrine 4 mg In 0.757 11.658 Sodium Chloride 0.9% 250 ml @ 0.05 MCG/KG/MIN 11. 354 mls/hr IV .[id number] [facility] Rx#:[id number] Tube Feeding 680 650 590 Other 180 60 Output: Urine 2375 520 750 Other: Voiding Method Indwelling Catheter Indwelling Catheter Indwelling Catheter ABP, PAP, CO, CI - Last Documented Arterial Blood Pressure 123/58 - Exam GENERAL DESCRIPTION: Middle-aged male intubated on the vent, no distress. No tachypnea or accessory muscle of respiration use. LUNGS: Unlabored breathing. Coarse breath sound at the base. No wheeze or crackle. HEART: S1, S2, regular rate and rhythm. No loud murmur ABDOMEN: Soft, no tenderness , EXTREMITIES: No edema of feet. Patient's sacral wound with minimal slough no further black Esher no surrounding redness or drainage - Labs CBC & Chem 7: 10/11/21 07:20 10/11/21 07:20 Labs: Abnormal Lab Results - Last 24 Hours (Table) 10/10/21 10/10/21 10/10/21 Range/Units 17:13 17:39 23:49 RBC (3.80-5.40) m/uL Hgb (11.4-16.0) gm/dL Hct (34.0-46.0) % MCV (80.0-100.0) fL ABG pH 7.49 H (7.35-7.45) ABG pCO2 (35-45) mmHg ABG HCO3 28 H (21-25) mmol/L ABG Total CO2 30 H (19-24) mmol/L ABG O2 Saturation 97.9 H (94-97) % Chloride (98-107) mmol/L Creatinine (0.52-1.04) mg/dL Glucose (74-99) mg/dL POC Glucose (mg/dL) 119 H 131 H (75-99) mg/dL Calcium (8.4-10.2) mg/dL ALT (4-34) U/L Total Protein (6.3-8.2) g/dL Albumin (3.5-5.0) g/dL 10/11/21 10/11/21 10/11/21 Range/Units 05:52 07:20 07:20 RBC 2.29 L (3.80-5.40) m/uL Hgb 7.2 L (11.4-16.0) gm/dL Hct 23.2 L (34.0-46.0) % MCV 101.1 H (80.0-100.0) fL ABG pH (7.35-7.45) ABG pCO2 (35-45) mmHg ABG HCO3 (21-25) mmol/L ABG Total CO2 (19-24) mmol/L ABG O2 Saturation (94-97) % Chloride 109 H (98-107) mmol/L Creatinine 0.36 L (0.52-1.04) mg/dL Glucose 104 H (74-99) mg/dL POC Glucose (mg/dL) 100 H (75-99) mg/dL Calcium 8.1 L (8.4-10.2) mg/dL ALT 38 H (4-34) U/L Total Protein 5.3 L (6.3-8.2) g/dL Albumin 2.3 L (3.5-5.0) g/dL 10/11/21 10/11/21 10/11/21 Range/Units 07:49 12:27 13:29 RBC (3.80-5.40) m/uL Hgb (11.4-16.0) gm/dL Hct (34.0-46.0) % MCV (80.0-100.0) fL ABG pH 7.51 H (7.35-7.45) ABG pCO2 34 L (35-45) mmHg ABG HCO3 27 H (21-25) mmol/L ABG Total CO2 28 H (19-24) mmol/L ABG O2 Saturation 98.3 H (94-97) % Chloride (98-107) mmol/L Creatinine (0.52-1.04) mg/dL Glucose (74-99) mg/dL POC Glucose (mg/dL) 129 H 118 H (75-99) mg/dL Calcium (8.4-10.2) mg/dL ALT (4-34) U/L Total Protein (6.3-8.2) g/dL Albumin (3.5-5.0) g/dL Assessment and Plan (1) Pneumonia Current Visit: Yes Status: Acute Code(s): J18.9 - PNEUMONIA, UNSPECIFIED ORGANISM SNOMED Code(s): 861674654 (2) Allergy to multiple antibiotics Current Visit: Yes Status: Acute Code(s): Z88.1 - ALLERGY STATUS TO OTHER ANTIBIOTIC AGENTS SNOMED Code(s): 486175337 (3) COVID-19 Current Visit: Yes Status: Acute Code(s): U07.1 - COVID-19 SNOMED Code(s): 856087439 Plan: 1-patient with unstageable sacral pressure ulcer as well as unstageable pressure ulcer to the upper back area, local wound care with the medahoney followed by moist dressing and keep the area off the pressure, left elbow pressure ulcer stage II with no cellulitis local wound care with a dry with Aquacel silver dressing and keep the area off the pressure 2-Patient with acute respiratory failure which is multifactorial in this patient who did have a covid19 pneumonia and a concern for possible secondary bacterial pneumonia , patient did have new fever on 10/03/2021 with concern for possible PICC line infection blood cultures were obtained from the PICC line has been negative , vancomycin was discontinued yesterday and will monitor the patient closely off antibiotic therapy 3-patient sputum did grow Radha, could be colonizer versus oropharyngeal candidiasis patient to continue with Eraxis, and monitor clinical course closely Time with Patient: Less than 30
[2021-10-12 00:10] LABS: Glucose,Whole Blood 119 mg/dL (75-99)
[2021-10-12] MEDS: INSULIN ASPART (NovoLOG) 100 UNIT/ML VIAL SQ SCH ×4 (01:12→18:10)
[2021-10-12] MEDS: NOREPINEPHRINE 4 MG in SODIUM CHLORIDE 0.9% 250 ML IV SCH (03:14)
[2021-10-12] MEDS: SODIUM CHLORIDE 0.9% 1,000 ML IV SCH ×2 (03:15→18:20)
[2021-10-12 05:40] LABS: Glucose,Whole Blood 115 mg/dL (75-99)
[2021-10-12 05:46] LABS: ABG Base Excess 3.3 mmol/L; ABG HCO3 27 mmol/L (21-25); ABG Oxygen Saturation 99.4 % (94-97); ABG PCO2 37 mmHg (35-45); ABG PH 7.47 (7.35-7.45); ABG PO2 166 mmHg (83-108); ABG TCO2 28 mmol/L (19-24); Allen Test Performed? Yes
--- NOTE | 2021-10-12 07:51 | XR ---
EXAMINATION TYPE: XR chest 1V portable DATE OF EXAM: 10/12/2021 Comparison: 10/11/2021 Clinical History: 51-year-old female ICU follow-up, assess lungs Findings: Left anterior chest wall ICD generator with right ventricular lead. Tracheostomy cannula. Right PICC tip cavoatrial junction. Heart normal size. Hyperinflation. Mild interstitial/vascular prominence is unchanged. Retrocardiac and left basilar opacity is similar. Impression: 1. Overall similar COPD with mild interstitial changes. 2. Continued retrocardiac and left basilar opacity without significant change.
[2021-10-12] MEDS: PANTOPRAZOLE 40 MG/10 ML VIAL IV SCH (07:56)
[2021-10-12] MEDS: CHLORHEXIDINE GLUCONATE 15 ML CUP MUCOUS MEM SCH ×2 (07:56→20:01)
[2021-10-12] MEDS: AMIODARONE 200 MG TAB PO SCH (07:57)
[2021-10-12] MEDS: APIXABAN 5 MG TAB PO SCH ×2 (07:57→20:02)
[2021-10-12] MEDS: CHOLECALCIFEROL 125 MCG (5000 IU) TABLET PO SCH (07:57)
[2021-10-12] MEDS: QUEtiapine 50 MG TAB PO SCH (07:58)
[2021-10-12] MEDS: carBAMazepine 200 MG TAB PO SCH ×3 (07:58→21:02)
[2021-10-12] MEDS ORDERED: FUROSEMIDE 10 MG/ML 4 ML VIAL IV STA (08:16)
[2021-10-12] MEDS ORDERED: QUEtiapine 50 MG TAB PO STA (09:27)
[2021-10-12] MEDS: QUEtiapine 100 MG TAB PO SCH ×2 (09:27→20:18)
[2021-10-12] MEDS: METOPROLOL TARTRATE 25 MG TAB PO SCH ×2 (09:27→20:01)
[2021-10-12] MEDS: HYDROmorphone 1 MG/ML 1 ML SYRINGE IVP SCH ×5 (10:14→20:30)
--- NOTE | 2021-10-12 10:19 | P.PN ---
Subjective Progress Note Date: 10/12/21 Principal diagnosis: Respiratory failure. Reevaluated today on 09/18/21, patient remains in the ICU, intubated and mechanically ventilated. Patient is not making any significant neurological improvement. She has been off sedation for few days, yesterday we started the patient only on Precedex, and that's mostly to keep her synchronous with the ventilator. Again her mental status is basically about the same, and she is not showing much improvement. She opens eyes slightly to deep painful stimuli, but no purposeful movement and no responses to verbal stimuli. She is on assist control rate of 32 tidal volume 325 FiO2 was 50% and PEEP was 8 however I cut down her FiO2 to 45%. Patient is receiving enteral feeding, vital AF at 34 mL per hour. ABG today showed a pO2 of 107 pCO2 44 pH of 7.46. Basic metabolic profile is normal WBC count is 7.6 hemoglobin is 9.5. No significant metabolic abnormality to explain her encephalopathy at this point. Patient is still being followed by neurology on the case. Patient is still being treated for coronary virus infection, and UTI on admission secondary to E. coli. 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 No acute process was noted. Patient remains on seizure medications as per neurology including Keppra and Tegretol. EEG showed slowing/moderate degree of slowing suggestive of generalized cerebral dysfunction. This is seen with toxic metabolic encephalopathy. Reevaluated today on 09/19/21, patient remains in the ICU, intubated and mechanically ventilated, she is on assist control rate of 32 tidal volume of 325 FiO2 45% and PEEP of 8. Patient had to be placed on propofol yesterday at 50 mcg/kg/m, she is on IV fluid at 50 mL per hour. ABG showed a pO2 of 78 pCO2 of 47 pH of 7.44. Chest x-ray is basically about, no change. WBC count is 9.2 hemoglobin is 10.3. Electrolytes are normal. Again the patient had to be placed back on propofol because she was getting agitated, restless, and not syn chronous with the ventilator yesterday. Remains on propofol today, and patient is not responding to any stimuli. Hence I'm keeping her on propofol, I believe the patient will eventually require tracheostomy and PEG tube placement unless CODE STATUS is changed to comfort care. Chest x-ray is basically showing no significant abnormalities. She does have mild pulmonary vascular congestion. Reevaluated today on 09/20/21, patient remains in the ICU, intubated and mechanically ventilated. She is on assist control rate of 32 tidal volume 325 FiO2 is 45%, PEEP is at 8. Patient is back on propofol, intermittently has been receiving Dilaudid, patient becomes at times agitated, and asynchronous with the ventilator, early in the week, I was able to hold sedation for a number of days, however the patient remained unresponsive to verbal stimuli, and apparently she had significant toxic metabolic encephalopathy. CT of the brain was nondiagnostic. Patient was seen by neurology on consultation, and still believe that this is a occipital metabolic encephalopathy picture. Patient is on propofol now at 50 mcg/kg/m, not requiring any other sedatives or narcotics. Patient has been feeding/enteral feeding vital AF at 34 mL per hour. ABG today showed a pO2 of 101 pCO2 47 pH of 7.44. Chest x-ray continues to show retrocardiac density likely atelectasis, otherwise no significant findings on the chest x-ray Progress note dated 09/21/2021. This is a 51-year-old female, who was admitted to the hospital on September 10. She came in with mental status changes, sepsis, and hypernatremia. She came to the intensive care unit on September 10, and was intubated for respiratory failure on 09/11/2021. The patient did test positive for coronavirus. She remains on mechanical ventilator. The patient is on the volume assist control mode, rate 32, tidal volume 325, FiO2 45%, and PEEP of 8. Blood gases show pO2 of 91, pCO2 49, and pH is 7.45. The patient's getting half-normal saline at 50 mL an hour, propofol at 50 mcg/kg/m, and vital AF at 34 mL an hour, which is goal. White count 10.2, hemoglobin 9.7, hematocrit 30.4, and platelet count was normal. Sodium 139, potassium 3.5, chlorides 104, CO2 32, anion gap 3, BUN 34, and creatinine 0.65. Microbiologic studies show evidence of Escherichia coli in the urine from September 10, and presumptive staph aureus in the sputum from August 30 0. The chest x-ray shows left lower lobe atelectasis and/or infiltrates. The patient is currently on antifungals, and aztreonam. The infectious disease doctor is currently on the case. Progress note dated 09/22/2021. 51-year-old female who was admitted to the hospital on 09/10/2021. She came in with mental status changes, sepsis, and hypernatremia. She came to the intensive care unit on September 10, and was intubated for respiratory failure on 09/11/2021. She did test positive for coronavirus. She remains on the mechanical ventilator. The plan is for a tracheostomy and PEG tube placement today by one of the surgeons. The patient also had a right radial arterial line placed by our team. Currently, she is on the volume assist control mode, rate 32, tidal volume 325, FiO2 45%, PEEP of 8. Arterial blood gases show pO2 of 88, pCO2 46, and a pH is 7.48. The patient is on propofol at 40 mcg/kg/m, saline at 20 mL an hour, half-normal saline at 50 mL an hour, and vital, at 46 mL an hour, which is goal. Obviously, tube feeds on hold for anticipated surgery today. White count 9.3, hemoglobin 8.8, hematocrit 27.3, and platelet count 269,000. Sodium 139, potassium 3.4, chlorides 104, CO2 33, anion gap 2, BUN 26, and creatinine 0.54. AST 500, ALT 166. An ultrasound the right upper quadrant will be ordered. Chest x-ray shows persistent left lower lobe atelectasis and/or inf iltrate. Progress note dated 09/23/2021. This is a 51-year-old female, again seen in room 254. She's now been in the hospital for 13 days. She was admitted on 09/10/2021. She came in with mental status changes, and sepsis. She came to the intensive care unit on September 10, and was intubated respiratory failure on 09/11/2021. She did test positive for coronavirus. She remains on the mechanical ventilator. The patient was to have a tracheostomy and PEG tube placement performed. It was to be done yesterday but for some reason did not take place. She remains on the volume assist control, rate 32, tidal volume 325, FiO2 45%, and PEEP of 8. Blood gases show pO2 80, pCO2 39, pH is 7.48. The patient's getting saline at 20 mL an hour, half-normal saline at 50 mL an hour, and tube feeds are currently on hold. White count 10, hemoglobin 9.3, hematocrit 29.2, and platelet count 341,000. Sodium 139, potassium 3.6, chlorides 106, CO2 27, anion gap 6, BUN 23, and creatinine 0.59. Albumin is 2.4. Microbiology from September 10, shows a urine that was positive for an E. coli, and a sputum from September 17, it is positive for Staphylococcus aureus. The patient is currently on vancomycin and Eraxis. Progress note dated 09/24/2021. 51-year-old female, again seen in room 254. The patient underwent tracheostomy and PEG tube placement yesterday, on September 23. The patient is now been in the hospital for 14 days. The patient was admitted on 09/10/2021. She did test positive for coronavirus. The patient was intubated on 09/11/2021, for respiratory failure. Currently, she is on volume assist control, rate 32, tidal volume 325, FiO2 40%, and PEEP of 8. Arterial blood gases show pO2 of 79, pCO2 39, pH is 7.45. The patient's getting half-normal saline at 50 mL an hour. She is on propofol at 40 mcg/kg/m. Tube feedings are still on hold. She's getting an antifungal, as well as Levaquin. Labs include a white count 9.1, hemoglobin 9.5, hematocrit 29.5 and platelet count which is normal. Sodium 133, potassium 3.4, chlorides 101, CO2 26, anion gap 6, BUN 19, and creatinine 0.53. AST is 229, and ALTs 159. Microbiologic studies are positive for a urine sample from September 10, for E. coli, and methicillin sensitive staph aureus in the sputum from September 17. Chest x-ray shows patchy bibasilar and bilateral infiltrates. Progress note dated 09/25/2021. 51-year-old female again seen in room 254. She underwent tracheostomy and PEG tube placement on September 23. The patient has been in the hospital now for 15 days. She remains on the ventilator. She is on the volume assist control mode, rate 32, tidal volume 325, FiO2 40%, PEEP of 8. Blood gases show pO2 of 95, pCO2 51, and pH is 7.44. The patient's getting half-normal saline at 50 mL an hour, and currently, propofol is off. She is also on vital 1.2 at 46 mL an hour, which is goal. She remains on Levaquin for a sputum positive for methicillin sensitive staph aureus. Also, the patient is on an antifungal as per infectious diseases. Because of her poor mental status, we will repeat a computed tomography scan of the brain with contrast. Her hoping to be able to get this patient to a long-term acute care facility or specialized nursing facility. White count 9.9, hemoglobin 9, hematocrit 26.8 and platelet count 333,000. Sodium 137, potassium 3.9, chlorides 102, CO2 31, anion gap 4, BUN 18, creatinine 0.53. Chest x-ray shows a tracheostomy tube in the midline. There is diffuse bilateral infiltrates, with worsening in the retrocardiac area. Progress note dated 09/26/2021. This is a 51-year-old female again seen in room 254. She underwent tracheostomy and PEG tube placement on September 23. She's now been in the hospital for 16 days. She remains on the ventilator. The patient was admitted on 09/10/2021. She did test positive for coronavirus. The patient was intubated on 09/11/2021, for respiratory failure. She remains on the ventilator. She is on the volume assist control mode, rate 32, tidal volume 325, FiO2 40%, to be reduced down to 35%, and PEEP of 8. Blood gases show pO2 of 111, pCO2 42, and a pH is 7.52. The patient is receiving saline at 20 mL an hour, half-normal saline at 50 mL an hour, and vital AF at 57 mL an hour, which is goal. The patient remains on Levaquin and Eraxis. The patient's chest x-ray is unchanged. Recent repeat brain CT was negative. White count 8.7, hemoglobin 8.8, hematocrit 27.6, and platelet count 330,000. Sodium 138, potassium 3.6, chlorides 102, CO2 34, anion gap 2, BUN 22, creatinine 0.38. Progress note dated 09/27/2021. 51-year-old female, again seen in room 254. The patient underwent tracheostomy and PEG tube placement, on 09/23/2021. She's now been in the hospital for 17 days. She remains on the ventilator. She was initially admitted back on 09/10/2021. She did test positive for coronavirus. She was intubated on 09/11/2021, for worsening respiratory failure. She remains on the mechanical ventilator. The patient is on the volume assist control mode, rate 32, tidal volume 325, FiO2 35%, and PEEP of 8. Blood gases show pO2 of 82, pCO2 40, and pH is 7.49. She's getting saline at 20 mL an hour, half-normal saline at 50 mL an hour, and vital AF at 57 and hour, which is goal. We are going to DC her Decadron. She been on it since the . White count 8.3, hemoglobin 9.5, hematocrit 30, and platelet count 356,000. Sodium 138, potassium 4, chlorides 103, CO2 31, anion gap 4, BUN 22, creatinine 0.45. Microbiology shows a staph aureus from September 17, and the sputum. It's a methicillin sensitive staph aureus. The patient remains on Eraxis and Levaquin. Chest x-ray is essentially unchanged. Reevaluated today on 10/09/2021, patient remains in the ICU, remains on ventilatory support, she is on pressure control of 22 inspiratory time of 0.9 FiO2 40% PEEP of 5. ABG today showed a pO2 of 131 pCO2 of 31 pH of 7.52. Patient is not requiring any pressors, she is not requiring any drips, no sedation is needed, she is still receiving tube feeding vital HPI 22 mL per hour. Patient had a relatively uneventful night, and we plan to place the patient back on a mode of weaning, and I plan to place her back either on a T piece orotracheal collar today. No ABG was done today. No chest x-ray was done. Chest x-ray from yesterday showed basically no change. Tracheostomy is intact. Reevaluated today on 10/10/2021, patient remains on TP, over the last 24 hours, tolerating weaning very well, seems to be quite agitated, and would like to go home. Patient is getting more agitated with the t piece itself, although she seems to be very comfortable and her O2 saturation is high in the 90s. Went ahead and recommended decannulation of the trach, and I removed the tracheostomy at bedside, and the sutures around the tracheostomy were also removed. Patient felt much better and she was switched to a nasal cannula. WBC count today is 6.6 hemoglobin 8.1 electrodes. Normal except for low potassium be corrected accordingly. Went ahead and discontinued his Eraxis, patient is on vancomycin, and hopefully that will be discontinued by infectious disease today on rounds. No chest x-ray was done today. But I reviewed the chest x-ray from yesterday Reevaluated today on 10/11/2021, patient remains in the ICU, yesterday I D cannulated the patient, however few hours later, the patient developed left lower lobe atelectasis/collapse, and she was having hard time breathing, she could not clear any of her secretions. Patient was very weak, and she had a very ineffective cough. I was notified about this patient by the nurse and by respiratory therapy, I recommended that the patient gets her trach placed back again. And this time she is to have a size 6 a size 7 Shiley tube placed by respiratory therapy. Indeed the patient had a size 6 placed, placed back on mechanical ventilation overnight, since she was agitated we added Precedex overnight. Remains on the vent overnight, and she is on Precedex. Her ABG today showed a pO2 of 105, pCO2 34 pH of 7.51. This was on assist control mode of mechanical ventilation, she was on rate of 28 tidal volume 400 FiO2 40% and PEEP of 8. Then I recommended that we give the patient today another trial on trach collar but she is to be suctioned if she develops any shortness of breath or she develops worsening secretions. Patient remains on vital AF at 60 mL/h she was on a very low dose of norepinephrine at 0.02 which I have discontinued this morning. Chest x-ray is showing dramatic improvement in her left lower lobe atelectasis/collapse. But it is not fully completely resolved. Nonetheless the patient continues to have minimal atelectasis at the left base. WBC count today is 7 hemoglobin 7.2 electrolytes are normal renal profile is normal. Progress note dated 10/12/2021. The patient is again seen in room 254. I saw her last on September 27. The patient was admitted to the hospital on September 10. She came in with mental status changes, seizures, and acute kidney injury, as well as coronavirus infection. The patient came to the intensive care unit on 09/11/2021, and was intubated on the same day. The patient had a tracheostomy and PEG tube placed on 09/23/2021. The patient remains on the ventilator. She has had some weaning with trach collar. Currently, she is on the volume assist control, rate 28, tid al volume 400, FiO2 40%, and PEEP of 8. Blood gases show a PaO2 of 166, pCO2 37, and pH is 7.47. That was on 50% FiO2. The patient's on saline at 100 mL an hour, and Precedex at 0.2 mcg/kg/h. We are going to give the patient Ativan, Seroquel, and Dilaudid. We will discontinue the Precedex. We'll make sure the fluids were cut back, and give the patient Lasix 40 mg IV push. The only lab data from today include a glucose of 115, and blood gases as mentioned. Chest x-ray shows some mild interstitial changes, and a retrocardiac and left basilar opacity. Microbiology is reviewed. And there is no recent culture data of significance. Objective - Vital Signs Vital signs: Vital Signs Temp 98.2 F 10/12/21 08:00 Pulse 82 10/12/21 09:00 Resp 28 H 10/12/21 09:00 BP 94/52 10/12/21 09:00 Pulse Ox 98 10/12/21 09:00 Intake & Output 10/11/21 10/12/21 10/12/21 18:59 06:59 18:59 Intake Total 2198.822 2970 286.19 Output Total 1000 1080 136 Balance 3630.485 5661 150.19 Weight 62 kg Intake: IV 1300 2100 120 Sodium Chloride 0.9% 1, 1200 1300 120 000 ml @ 20 mls/hr IV . Q24H ADDIE Rx#:[id number] levETIRAcetam IV 1,500 mg 100 800 In Saline 1 100ml.bag @ 400 mls/hr IVPB Q12HR ADDIE Rx#:[id number] Intake, IV Titration 98.822 46.19 Amount Dexmedetomidine/0.9% NaCl 87.164 46.19 (Pmx) 400 mcg In Empty Bag 1 bag @ 0.2 MCG/KG/HR 2.98 mls/hr IV .Q24H ADDIE Rx#:[id number] Norepinephrine 4 mg In 11.658 Sodium Chloride 0.9% 250 ml @ 0.05 MCG/KG/MIN 11. 354 mls/hr IV .[id number] ADDIE Rx#:[id number] Tube Feeding 710 780 120 Other 90 90 Output: Urine 1000 1080 135 Stool 1 Other: Voiding Method Indwelling Catheter Indwelling Catheter Indwelling Catheter # Bowel Movements 1 1 ABP, PAP, CO, CI - Last Documented Arterial Blood Pressure 123/58 - Exam No acute distress, currently on dexmedetomidine, with a midline tracheostomy. HEENT examination is grossly unremarkable. Neck supple. Full range of motion. No adenopathy thyromegaly or neck vein distention. Midline tracheostomy is noted. Cardiovascular examination reveals regular rhythm rate. S1-S2 normal. No S3 or S4. No discernible murmur noted. Heart rate 74 bpm. Heart sounds are distant. Lungs reveal bilateral expiratory rhonchi and wheezes. No crackles. Breath sounds are equal bilaterally. Saturations are 97%. Abdomen soft, without bowel sounds. No masses. PEG tube is noted. Extremities are intact. No cyanosis or clubbing. Trace edema is noted. Skin is without rash or lesion. Neurologic examination is much improved. The patient's awake and alert. - Labs CBC & Chem 7: 10/11/21 07:20 10/11/21 07:20 Labs: Abnormal Lab Results - Last 24 Hours (Table) 10/11/21 10/11/21 10/11/21 Range/Units 12:27 13:29 18:53 ABG pH (7.35-7.45) ABG pO2 (83-108) mmHg ABG HCO3 (21-25) mmol/L ABG Total CO2 (19-24) mmol/L ABG O2 Saturation (94-97) % POC Glucose (mg/dL) 129 H 118 H 110 H (75-99) mg/dL 10/12/21 10/12/21 10/12/21 Range/Units 00:07 05:39 05:45 ABG pH 7.47 H (7.35-7.45) ABG pO2 166 H (83-108) mmHg ABG HCO3 27 H (21-25) mmol/L ABG Total CO2 28 H (19-24) mmol/L ABG O2 Saturation 99.4 H (94-97) % POC Glucose (mg/dL) 119 H 115 H (75-99) mg/dL Assessment and Plan Assessment: Acute hypoxemic respiratory failure secondary to coronavirus associated pneumonia, status post intubation and mechanical ventilation on 09/11/2021. Status post tracheostomy and PEG tube placement on 09/23/2021. Acute mental status changes, secondary to toxic/metabolic encephalopathy, much improved. Methicillin sensitive staph aureus pneumonia, left lower lobe, treated. Dehydration, on admission, resolved. History of seizure disorder. Prior history of pulmonary embolism. Paroxysmal atrial fibrillation. Cardiomyopathy with ejection fraction of 30-35%. Status post pacemaker implantation. 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 Hypothyroidism. CAD. History of CVA in 2007. History of recurrent E. coli urinary tract infections. History of psoriasis. History of sacral/coccygeal decubitus ulcer. Plan: Plan dated 09/21/2021. Because of the patient's overall poor status, and the fact that she still is a full code, surgery will be consulted for possible tracheostomy and PEG tube placement. We will continue to follow make recommendations where appropriate. Again, prognosis is very poor. She remains on mechanical ventilator. She remains on appropriate antibiotics. Infectious diseases is following. We will continue to follow make recommendations where appropriate. Plan dated 09/22/2021. The patient is going to hopefully have a tracheostomy and PEG tube placement today. The patient remains on propofol at 40 mcg/kg/m. We did replace the arterial line. The previous arterial line was poorly functional. She had a right radial arterial line placed today by our team. A previous urine culture from September 10 showed Escherichia coli. Sputum from September 17 showed Radha, and presumptive Staphylococcus aureus. The patient remains on an antifungal, and vancomycin as per infectious diseases. Mariam follow and make recommendations where appropriate. Prognosis is certainly guarded. Plan dated 09/23/2021. The patient had methicillin sensitive staph aureus in the sputum and is currently on vancomycin. That can be changed to something other than vancomycin. The patient should have a tracheostomy and PEG tube placement today. It was to be done yesterday. The patient is currently off all sedation. Tube feedings on hold. Oxygenation and ventilation are excellent. We will continue to follow make recommendations where appropriate. Overall prognosis remains very guarded. Most recent brain CT shows old infarcts, with nothing acute and no major change. Plan dated 09/24/2021. The patient underwent tracheostomy and PEG tube placement yesterday, 09/23/2021. She remains on the mechanical ventilator. Labs, x-rays, and medications are all reviewed. The staph. in the sputum, was methicillin sensitive. Hence, vancomycin was discontinued, and she was started on Levaquin. She remains on the antifungal. We will continue to follow make recommendations where appropriate. We'll attempt to wean her off the propofol. Additional recommendations and suggestions are coming. Prognosis is guarded. Plan dated 09/25/2021. We'll attempt another CAT scan of the brain with contrast, because of the patient's poor mental status. Two prior CT scans did not show anything acute. The patient remains on Levaquin, and Eraxis. The patient remains off of all. We will continue to follow make recommendations where appropriate. Overall prognosis remains guarded. Plan dated 09/26/2021. Repeat brain CT with contrast, was negative for anything acute. The patient's mental status remains poor. The patient is currently off all sedatives. The patient remains on antibiotic and antifungal as above. The sputum was positive for methicillin sensitive staph aureus. Fungal cultures are currently negative. The patient's chest x-ray is unchanged. The FiO2 was reduced on the 35%. Labs, x-rays, and medications are all reviewed. We will continue to follow and make recommendations where appropriate. Prognosis is certainly guarded. Plan dated 09/27/2021. The patient's repeat brain CT with contrast, was negative for anything acute. The patient's overall mental status remains very poor. The patient will have a daily interruption of sedation, and a spontaneous breathing trial today. We will DC the Decadron, as the patient has been on it since September 12. The patient is currently on Levaquin for a methicillin sensitive staph aureus that was discovered in the sputum. He also remains on the antifungal, Eraxis. We will continue to follow make recommendations where appropriate. The patient's labs, x-rays, and medications are all reviewed. Prognosis is guarded. Possible discharge to a long-term acute care facility, or a specialized nursing facility. Plan dated 10/12/2021. The patient's neurologic status is much improved. He is awake and alert. She has had some weaning along the way. Today, we will attempt to get her off of Precedex, by adding some Ativan, Seroquel, and when necessary Dilaudid. In addition, IV fluids are made at KVO. We will give the patient Lasix 40 mg IV push. Additional recommendations and suggestions are forthcoming. Prognosis is guarded. We also place the patient on some pressure support and CPAP, and will transition her to trach collar. Additional recommendations and suggestions are forthcoming. We will continue to follow make recommendations where appropriate. Prognosis is very guarded. Time with Patient: Greater than 30
[2021-10-12 10:31] LABS: Basophils % (A) 0 %; Eosinophils # (A) 0.1 k/uL (0-0.7); Eosinophils % (A) 2 %; HGB 7.1 gm/dL (11.4-16.0); Hypochromasia Moderate; Lymphocytes # (A) 0.7 k/uL (1.0-4.8); Lymphocytes % (A) 12 %; MCH 31.7 pg (25.0-35.0); MCHC 30.7 g/dL (31.0-37.0); MCV 103.3 fL (80.0-100.0); Macrocytosis Slight; Mean Platelet Volume 7.9; Monocytes # (A) 0.3 k/uL (0-1.0); Monocytes % (A) 5 %; Neutrophils # (A) 4.8 k/uL (1.3-7.7); Neutrophils % (A) 80 %; Platelet Count 327 k/uL (150-450); RBC 2.23 m/uL (3.80-5.40); RDW 14.9 % (11.5-15.5); WBC 5.9 k/uL (3.8-10.6)
[2021-10-12 10:32] LABS: African American GFR (CKD) >90 (>60 ml/min/1.73 sqM); Anion Gap 3 mmol/L; Blood Urea Nitrogen 14 mg/dL (7-17); Calcium 8.4 mg/dL (8.4-10.2); Carbon Dioxide 26 mmol/L (22-30); Chloride 106 mmol/L (98-107); Glucose 108 mg/dL (74-99); Non-African American GFR(CKD) >90 (>60 ml/min/1.73 sqM); Potassium 3.9 mmol/L (3.5-5.1); Sodium 135 mmol/L (137-145)
[2021-10-12 12:01] LABS: Glucose,Whole Blood 115 mg/dL (75-99)
[2021-10-12] MEDS ORDERED: POTASSIUM BICARBONATE/CIT AC 20 MEQ TABLET.EFF NG-TUBE SCH (13:00)
[2021-10-12] MEDS: LORazepam 2 MG/ML INJ IV SCH ×3 (14:35→20:03)
--- NOTE | 2021-10-12 14:42 | P.PN ---
Subjective Progress Note Date: 10/12/21 CHIEF COMPLAINT: COVID-19 pneumonia HISTORY OF PRESENT ILLNESS: Patient remains in the ICU on mechanical ventilation. Patient currently on trach piece. Patient is status post tracheostomy and PEG tube placement on 09/23/21. Patient is tolerating tube feedings. They're working on possible transfer to rehab once a bed is available and awaiting insurance authorization PHYSICAL EXAM: VITAL SIGNS: Reviewed. GENERAL:no acute distress. HEENT: Moist buccal mucosa. Head is atraumatic, normocephalic. Tracheostomy site clean and intact. ABDOMEN: Soft. Nondistended. PEG tube site clean dry and intact NEUROLOGIC: awake ASSESSMENT: 1. Acute hypoxic respiratory failure secondary to COVID-19 pneumonia requiring mechanical ventilation 2. Severe protein calorie malnutrition PLAN: -Continue tube feedings -Continue ICU management -Continue supportive care Physician Sr. [employer] note has been reviewed by physician. Signing provider agrees with the documented findings, assessment, and plan of care. Objective - Vital Signs Vital signs: Vital Signs Temp 98.2 F 10/12/21 12:00 Pulse 85 10/12/21 14:00 Resp 29 H 10/12/21 14:00 BP 96/60 10/12/21 14:00 Pulse Ox 94 L 10/12/21 14:00 Intake & Output 10/11/21 10/12/21 10/12/21 18:59 06:59 18:59 Intake Total 2198.822 2970 716.19 Output Total 1000 1080 3636 Balance 5328.394 7308 -2919.81 Weight 62 kg 62 kg Intake: IV 1300 2100 220 Sodium Chloride 0.9% 1, 1200 1300 220 000 ml @ 20 mls/hr IV . Q24H [facility] Rx#:[id number] levETIRAcetam IV 1,500 mg 100 800 In Saline 1 100ml.bag @ 400 mls/hr IVPB Q12HR [facility] Rx#:[id number] Intake, IV Titration 98.822 46.19 Amount Dexmedetomidine/0.9% NaCl 87.164 46.19 (Pmx) 400 mcg In Empty Bag 1 bag @ 0.2 MCG/KG/HR 2.98 mls/hr IV .Q24H [facility] Rx#:[id number] Norepinephrine 4 mg In 11.658 Sodium Chloride 0.9% 250 ml @ 0.05 MCG/KG/MIN 11. 354 mls/hr IV .[id number] [facility] Rx#:[id number] Tube Feeding 710 780 420 Other 90 90 30 Output: Urine 1000 1080 3635 Stool 1 Other: Voiding Method Indwelling Catheter Indwelling Catheter Indwelling Catheter # Bowel Movements 1 1 ABP, PAP, CO, CI - Last Documented Arterial Blood Pressure 123/58 - Labs CBC & Chem 7: 10/12/21 09:36 10/12/21 09:36 Labs: Abnormal Lab Results - Last 24 Hours (Table) 10/11/21 10/12/21 10/12/21 Range/Units 18:53 00:07 05:39 RBC (3.80-5.40) m/uL Hgb (11.4-16.0) gm/dL Hct (34.0-46.0) % MCV (80.0-100.0) fL MCHC (31.0-37.0) g/dL Lymphocytes # (1.0-4.8) k/uL ABG pH (7.35-7.45) ABG pO2 (83-108) mmHg ABG HCO3 (21-25) mmol/L ABG Total CO2 (19-24) mmol/L ABG O2 Saturation (94-97) % Sodium (137-145) mmol/L Creatinine (0.52-1.04) mg/dL Glucose (74-99) mg/dL POC Glucose (mg/dL) 110 H 119 H 115 H (75-99) mg/dL 10/12/21 10/12/21 10/12/21 Range/Units 05:45 09:36 09:36 RBC 2.23 L (3.80-5.40) m/uL Hgb 7.1 L (11.4-16.0) gm/dL Hct 23.0 L (34.0-46.0) % MCV 103.3 H (80.0-100.0) fL MCHC 30.7 L (31.0-37.0) g/dL Lymphocytes # 0.7 L (1.0-4.8) k/uL ABG pH 7.47 H (7.35-7.45) ABG pO2 166 H (83-108) mmHg ABG HCO3 27 H (21-25) mmol/L ABG Total CO2 28 H (19-24) mmol/L ABG O2 Saturation 99.4 H (94-97) % Sodium 135 L (137-145) mmol/L Creatinine 0.29 L (0.52-1.04) mg/dL Glucose 108 H (74-99) mg/dL POC Glucose (mg/dL) (75-99) mg/dL 10/12/21 Range/Units 12:00 RBC (3.80-5.40) m/uL Hgb (11.4-16.0) gm/dL Hct (34.0-46.0) % MCV (80.0-100.0) fL MCHC (31.0-37.0) g/dL Lymphocytes # (1.0-4.8) k/uL ABG pH (7.35-7.45) ABG pO2 (83-108) mmHg ABG HCO3 (21-25) mmol/L ABG Total CO2 (19-24) mmol/L ABG O2 Saturation (94-97) % Sodium (137-145) mmol/L Creatinine (0.52-1.04) mg/dL Glucose (74-99) mg/dL POC Glucose (mg/dL) 115 H (75-99) mg/dL
--- NOTE | 2021-10-12 15:37 | P.PN ---
Subjective Progress Note Date: 10/12/21 This is a pleasant 51 years old female with past medical history of Coronary Artery Disease, Heart Failure, CVA/TIA, Pulmonary Embolus (PE), Seizure Disorder, Last seizure 2009, CVA 2007 with L sided weakness arm and leg and has L foot drop, TIA 2018, cardiomyopathy, R PE and pneumothorax/pneumonia following leg fracture in 1994, gestational diabetes with all pregnancies , bilateral glaucoma with surgery, psoriasis in the past, UTIs. She is a status post Pacemaker, history of Bilateral eye surgery for glaucoma, Anxiety, Depression, Current every day smoker Patient presents because of altered mental status. Information was limited from the patient. It was obtained from the chart and medical staff. Also as per family patient was able to go to the bathroom, was more lethargic and tired over the last day. While in the emergency room focal mild seizure is noticed On admission patient had and fever of 101. She is tachypneic at 26-40, tachycardic 110-140, also she is hypoxic saturating 72% on room air Labs showing WBC of 10.5, hemoglobin of 16.3, platelet count of 197. INR 1.7. Sodium 164, creatinine 1.7, lactic acid elevated 4.6. Liver enzymes elevated with AST 202 and ALT 81. Bilirubin is normal at 1.3. Urine analysis is highly suspicious of infection Urine drug screen is negative Cash versus positive Chest x-ray showing left perihilar and left lower lobe area of infiltrate and small effusion correlates for pneumonia CT of the brain without contrast showing no intracranial hemorrhage, evidence of remote ischemic change. However there is vague low attenuation near the left thalamus and left cerebral peduncle. Acute ischemia in the differential diagnosis. Recommend stat MRI of brain with MRSA [place] of [place] as clinically warranted. In the emergency room patient was started on aztreonam and IV vancomycin, Keppra and heparin drip 09/11/2021 Patient today was still in the ICU, she was very weak and obtunded, she will wake up to certain stabilized and moans, she does not follow commands she cannot, gait she moved both extremities symmetrically. R on she had collapse of her left lung cancer and she has to be intubated and repeat chest x-ray showing better. A of the left lung. She is tachypneic with a breathing rate 22, no more fever since yesterday. Her sodium improved down to 144 and she was started on normal saline, creatinine 1.1, Ejection fraction showed 30-35% which is slice worsened from 06/2021 where it was 35-40% She remains on dexamethasone, IV vancomycin and clindamycin, heparin drip, Keppra and normal saline at 75 mL/h 09/12/2021 Patient with respiratory failures and she was intubated and placed on mechanical ventilation with pulmonary/critical care team following her mostly. There is no more seizure-like activity noticed. She still tachypneic with a breathing rate of 32 blood pressure 100/70, she is needing FiO2 of 80% and PEEP of 20. She has no more fevers since admission. Urine culture is growing gram-negative bacilli. Sodium is 146, WBCs is increased at 16.5 K. PH showing acidosis with 7.1 and elevated pCO2 at 83. Chest x-ray showing left sided opacities with near full. A of the left lung. Patient kept on antibiotics in the form of clindamycin and Levaquin and fluconazole. Also she remains on dexamethasone, and so a heparin to Lovenox. Also continued on seizure medication 1500 mg twice a day and IV fluids per pulmonary team. Neurology team on the case 09/13/2021 Patient remains intubated and sedated with pulmonary/critical care team following her closely. Her PEEP is lower today to 18. She remains on FiO2 of 50%. She is tachypneic at 32 about blood pressure is controlled. Her inflammatory markers are increased to LDH of 1009 and CRP of 25.1. Bicarb is elevated at 31 WBC is 17.7, sodium improved to 142. Creatinine improved to 0.6. Chest x-ray showed improving left lung infiltrate. PH is improved slightly 7.2 with pCO2 is slightly better at 79. Urine culture is growing E. coli which is sensitive to the antibiotics. Currently patient is covered with clindamycin, Levaquin and fluconazole. Also she is on dexamethasone 6 mg, Keppra 1500 mg and half-normal saline at 50 mL per hour Anticoagulation switch from heparin drip and to Lovenox 09/14/2021 Patient still intubated and sedated on mechanical ventilation with pulmonary/critical care team following her closely and just her vent setting. Today her FiO2 of 55%, and she is tachypneic at 33 breath per minute. Labs showing stable findings with sodium 141, creatinine 0.8, liver enzymes slightly elevated, LDH slightly down at 797 and CRP 2-3.2. Same leukocytosis at 14.7. Her pH is 7.2 and carbon dioxide is 82. D-dimer mildly elevated at 0.9, just x-ray showing bilateral infiltrate with no significant change from prior. She remains on the same antibiotic of clindamycin, Levaquin, dexamethasone, Keppra 1500 mg and half normal saline at 50 mL/h 09/15/2021 Patient in the ICU intubated and sedated, with pulmonary/critical care team following closely. FiO2 still 50%, hemodynamically showing both staple blood pressure 101/40, patient is tachypneic more than 30 per minutes. PEEP is lower. wbc of 11.3, hemoglobin 9.4, sodium 140, creatinine 0.8. chest x-ray: mild worsening infiltrate in the left lobe. patient continued with the same treatment of clindamycin, levaquin, dexamethasone, keppra and she received 1 l of normal saline today. 09/16/2021 Patient is seen and evaluated and follow-up continues to be closely monitored in the ICU. Multiple medical consultations following including infectious disease, pulmonary bear keeper, and neurology. Patient continues on mechanical vent with an FiO2 of 50% and PEEP is 10. Weaning is being continued and PEEP is being titrated down to 8. Patient continues with sedation holidays and very minimal propofol and patient is now off Nimbex and very minimal stimulus noted. Patient response to painful stimulus minimally. Plan is for possible CT of the brain repeat this afternoon. Patient also being closely monitored for continued seizures of which she does have a past medical history of. Patient is also Covid positive and infectious disease is following and patient is maintained on clindamycin along with Levaquin. Chest x-ray today shows correlate for left lower lobe pneumonia versus atelectasis with possible associated effusion. 09/17/2021 Patient is seen in follow-up this morning closely monitored in the ICU. Neurology also following and patient is maintained on IV Keppra. Patient also continues on IV antibiotics in the form of aztreonam and clindamycin with infectious disease following. Patient urine culture showing E. coli. Chest x- ray today shows chronic emphysematous changes with left basilar acute infiltrate and/or atelectasis and likely small left pleural effusion all redemonstrated with no significant change from previous day. Neurology following And okay to resume anticoagulant as there is no evidence of new intracranial process or hemorrhage. Patient is off sedation and continues to be unresponsive. 09/18/2021 Patient is evaluated again this morning and continues to be in the ICU on mechanical vent and being closely monitored. FiO2 is at 45% and PEEP is 8. Patient continues to be off sedation with no response for over 24 hours. Neurology following as well and have discussed overall prognosis with family and family discussing with other family members about CODE STATUS and treatment plan moving forward. Infectious disease also following and patient is maintained on IV Levaquin along with clindamycin and aztreonam and will continue. Urine cultures finalized showing E. coli and sputum culture preliminary is pending at this time. 09/19/2020 Patient evaluated today in the ICU on mechanical ventilation. Fi02 at 45% with a PEEP of 8. Propofol infusing, Nimbex and Levophed are currently on hold. Pr ecedex discontinued. There has been no response, and mental status is not improving. Still no response to verbal stimuli. Patient is being followed closely by neurology for this and is on IV keppra and tegretol. EEG consistant with toxic metabolic encepholapthy. Repeat chest xray today shows similar opacities given patient rotation. Stable support tubes. Mild pulmonary vascular congestion correlate with serum BNP. Blood cultures negative, pending finalized, sputum negative so far. Labs reviewed today: WBC 9.2, hgb 10.3, sodium 138, potassium 3.8, BUN 33, Cr 0.76, glucose in the 110's, calcium 7.9, AST 250, ALT 78, Albumin 2.3. Vitals reviewed: Temp 97.4, HR 126, RR 44, Blood pressure 113/80, 96% oxygen saturation on mechanical ventilation. 09/20/2021 Patient evaluated in ICU on mechanical ventilation with an Fi02 of 45%, PEEP of 12. Chest xray today shows left lower lobe atelectasis versus pneumonia with similar findings as previous. BNP yesterday 12,500, however xray reviewed and d oes not appear to be showing heart failure. She is in negative fluid balance. Status was addressed with family by neurology who is awaiting a phone call back. White count 12.8, RBC 3.5, sodium 137 potassium 3.8, chloride 101, CO2 33, BUN 35, creatinine 0.68, blood sugars in the 120s, AST 424, ALT 115, alk phos 63. Running temps today 100.8, heart rate 123, respiratory rate 36, blood pressure 95/65, oxygen saturation of 93-94%. Blood pressures are on the softer side 88/55. Current infusions include propofol which has been resumed as patient has not shown any signs of neurological improvement while on a propofol break. 09/21/2021 Patient is seen in follow up today and continues to be on mechanical vent with an FI02 of 45% with a peep of 8 and multiple medical consultations following. Ch est xray similar from previous with copd and continued focal basilar left lower lobe retrocardiac consolidation or atelectasis. Patient is on propofol and general surgery has been consulted for peg and trach placement. Plan for surgery is tomorrow. 09/22/2021 Patient is seen and evaluated in follow-up this morning continues on mechanical ventilation with a PEEP of 8 and FiO2 is 45%. General surgery following an plan is for PEG and trach placement today due to prolonged mechanical ventilation and no improvements or weaning from the vent. Patient continues on tube feeding along with Lovenox which is currently on hold for the surgical procedure. Patient's chest x-ray today shows diffuse bilateral infiltrates that are stable with no pneumothorax or pleural effusion noted. Patient also had gallbladder ultrasound secondary to elevated liver functions and shows hepatomegaly otherwise unremarkable. Patient is continued on antifungal's along with vancomycin and infectious disease following closely. Sputum cultures preliminary showing Radha glabrata and Staphylococcus aureus and most recent blood cultures have been negative. 09/23/2021 Patient is seen in follow-up this morning and patient was unable to receive PEG and trach with general surgery following yesterday and plan is for today. Patient continues on mechanical vent and FiO2 is 45% with a PEEP of 8. Lovenox and tube feeding currently on hold. Chest xray reviewed and no acute changes from yesterday. Continues to be unresponsive. Prognosis remains poor. 09/24/2021 Patient is seen this morning status post PEG and trach placement and is resuming tube feedings with general surgery following. Patient continues on mechanical vent with an FiO2 of 40% and PEEP is 8. Per nursing staff working on weaning sedation and assessing neuro status. Continues with being obtunded and no purposeful movements noted. Chest xray shows COPD with improvement in previous left pleural effusion with mild patchy infiltrates/retrocardiac atelectasis noted. 09/25/2021 Patient is seen and evaluated today continues to be in the ICU on mechanical ventilation and continues on sedation with attempts at weaning. FI02 is 40% and peep of 8. Multiple medical consultations following. Plan is for repeat ct of the brain sometime this afternoon. Per nursing staff patient is tolerating tube feeds. Chest xray today shows suboptimal study due to positioning and unable to exclude some worsening atelectasis or infiltrate. 09/26/2021 Patient is in the MICU. Status post tracheostomy and PEG tube placement on 09/23/2021 remains on mechanical ventilator. FiO2 40% and PEEP of 8. Patient remains unresponsive and does not follow simple commands. Repeat CT done on 09/25/2021 showed findings consistent with cerebrovascular infarction bilaterally. May be indicative of otitis media bilaterally. No acute brain abnormality evident. Patient is being continued antibiotics in the form of Levaquin and Eraxis per bacterial pneumonia and sputum cultures growing Radha and staph aureus. Laboratory data showed WBC 8.7 hemoglobin 8.8 and platelets 330 Sodium 138 potassium 3.6 chloride 102 bicarb is 34 BUN 2020 creatinine 0.38 and calcium 8.4 Patient is being continued antibiotics and antiepileptic medications. Pulmonary, neurology and ID is on board. 09/27/2021 Patient is in the MICU. Status post tracheostomy and PEG tube placement and mechanical ventilator. Patient is off sedation. Currently on assist control with tidal volume 325 FiO2 35% and PEEP of 8. Patient remains obtunded and does not follow simple commands. Chest x-ray showed improvement in the opacity in the obscuring the left hemidiaphragm on the prior study. Most likely represents decreasing small pleural effusion Laboratory showed WBC 8.3 hemoglobin 9.5 platelets 102 sodium 138 potassium 4.0 chloride 103 bicarb is 31 BUN 2020 creatinine 0.45 calcium 8.8 patient is being current on antibiotics in the form of Levaquin and Eraxis. Decadron has been discontinued. 09/28/2021 Patient continues to be closely monitored in the ICU with multiple medical consultations following. Current FiO2 is 35% and PEEP is 5. She is off sedation. Per nursing staff, patient did squeeze her right hand although unresponsive on exam. Patient chest xray shows chronic emphysematous change with left basilar acute infiltrate and or atelectasis and likely small left pleural effusion are all redemonstrated with no significant change from one day earlier. Patient continues on tube feeding and tolerating. Social work following and working on placement. Peer to Peer for insurance required. Patient also continues on Levaquin and antifungal for MSSA and radha glabrata in the sputum. Continue local wound care. 09/29/2021 Patient is seen and evaluated this morning continues to be closely monitored in the ICU. Patient remains off sedation and continues on mechanical ventilation via tracheostomy with an FiO2 of 35% and PEEP is 5. Pulmonary bear keeper following closely and continuing to wean and evaluating weaning parameters with possible attempts at trach collar. Patient is extremely lethargic although opening eyes and responding to commands appropriately and nodding yes and no appropriately to questions and commands. Patient continues to be flaccid on the left side although is able to squeeze writers hands this morning on the right and follow commands. Patient continues on anidulafungin along with IV Levaquin with infectious disease following closely. Patient tolerating tube feedings and will continue. 09/30/2021 Patient is seen today continues to be closely monitored in the ICU. Patient has been off sedation and currently maintained on mechanical ventilation via tracheostomy and PEEP is currently 5 with an FiO2 of 30%. Chest x-ray today shows COPD and continued small left pleural effusion with left basilar retrocardiac atelectasis and/or consolidation. Neurology to reevaluate. Patient was on cleviprex and being weaned. 10/01/2021 Patient is seen and evaluated this morning and per nursing staff, patient blood pressure has been elevated and on cleviprex. Patient is off sedation. Patient continued on mechanical ventilation via trach and FI02 is 30% with a peep of 5. Patient having some low grade temps and was off antibiotics and ID following closely and patient being started on vancomycin. Chest xray today shows chronic emphysematous change with left basilar opacity redemonstrated with no significant change from previous. 10/02/2021 Patient is able to open her eyes with verbal stimuli. Able to move her upper extremities. But patient is unable to move her lower extremities. Feels extremely weak. Able to follow simple commands. Patient is mechanical ventilator via trach tube. Chest x-ray showed unchanged with atelectasis of the left lung base. Patient remains antibiotics above vancomycin. Sputum cultures are growing staph aureus. Patient is on anticoagulation with Eliquis.. Patient is on amiodarone and also on antiepileptic medications. Laboratory data showed WBC 6.4 hemoglobin 8.9 and platelets 219 sodium 136 p otassium 3.5 chloride 104 bicarb is 25 BUN 21 creatinine 0.34 and calcium 8.3 Neurology and pulmonary is on board. 10/03/2021 Patient is awake and alert. Able to move her upper extremities. Feels gen eralized weakness and remains on mechanical ventilator. Currently on pressure support. With PEEP of 5. Patient has been afebrile. Currently on antibiotics in the form of vancomycin. Chest x-ray showed no acute abnormalities. Ongoing left lower lobe atelectasis. Patient is tolerating tube feeding. Laboratory showed WBC 6.8 hemoglobin 8.3 and platelets 201 sodium 135 potassium 3.5 chloride 103 bicarb is 26 BUN 69 creatinine 0.38 and blood sugar is 102 calcium 8.4 Patient is being continued antibiotics in the form of vancomycin. Cardiogram Eliquis and multivitamins. Current antiblood medication. Patient remains sinus rhythm. PVCs noted. 10/04/2021 Patient remains on mechanical ventilator via tracheostomy tube. Pressure control with FiO2 40% and PEEP of 5. Patient is otherwise awake alert and able to follow simple commands. Continues to have extreme weakness. Able to move her upper extremities but not lower extremities. Chest x-ray showed persistent left lower lobe effusion/consolidation. Patient is being continued on antibiotics in the form of vancomycin. Sputum cultures growing Radha species. Not albicans. Patient remains on antibiotics. Also on Eraxis. T-max 100.1. Patient is sinus rhythm. Continue anticoagulation with Eliquis and rate control with metoprolol and also on oral amiodarone. Laboratory data showed WBC 6.1 hemoglobin 7.8 and platelets 239 sodium 133 potassium 3.6 chloride 100 bicarb is 28 BUN 19 and creatinine 0.4 and blood sugar is 111 calcium 8.3 and vancomycin trough is 37.1. Pulmonary, ID and neurology is on board. 10/05/2021 Patient is seen and evaluated today continues to be in the ICU being closely monitored. Patient continues on and mechanical ventilation via tracheostomy and FiO2 is 40% with a PEEP of 5. No acute overnight issues per nursing staff. Patient is off sedation and continues on antiepileptics in the form of Keppra. Patient also continues on IV vancomycin along with anidulafungin with infectious disease following closely and also continue with local wound care. Patient continues with intermittent low-grade temps with concern for possible PICC line infection and most recent blood cultures have been negative. No chest x-ray from today. 10/11/2021 The patient was extubated yesterday. The patient has to be reintubated because of agitation and hypoxia and other issues. Patient also had abnormal left lower lobe chest x-ray. Patient is on no broad-spectrum IV antibiotics. Patient is being closely monitored in ICU. Patient has Cortef PEEP of [address] Gold is following the patient closely. 10/12/2021 Patient was intubated again and currently on mechanical ventilation via trache ostomy with an FiO2 of 40% and PEEP is 8 with multiple medical consultations following. Patient is currently awake and following simple commands of pulmonary bear keeper following closely. Chest x-ray today shows overall similar COPD with mild interstitial changes and continued retrocardiac and left basilar opacification without significant change. Patient is afebrile and denies chest pain at this time. Review of systems: unable to obtain as patient is on mechanical ventilation Active Medications Acetaminophen (Acetaminophen Tab 325 Mg Tab) 650 mg PO Q6HR PRN PRN Reason: Fever and/ or Pain Last Admin: 10/11/21 18:33 Dose: 650 mg Documented by: Hydrocodone Bitart/Acetaminophen (Hydrocodone/Apap 15 Ml Solution) 15 ml PO Q6HR PRN PRN Reason: Pain Last Admin: 10/10/21 15:53 Dose: 15 ml Documented by: Amiodarone HCl (Amiodarone 200 Mg Tab) 200 mg PO DAILY [facility] Last Admin: 10/12/21 07:57 Dose: 200 mg Documented by: Apixaban (Apixaban 5 Mg Tab) 5 mg PO BID [facility]; Protocol Last Admin: 10/12/21 07:57 Dose: 5 mg Documented by: Artificial Tears (Artificial Tears-Hypromellose Drops 15 Ml Btl) 1 drops BOTH EYES QID PRN PRN Reason: Dry Eye(s) Last Admin: 09/16/21 08:58 Dose: 1 drops Documented by: Carbamazepine (Carbamazepine 200 Mg Tab) 200 mg PO TID [facility] Last Admin: 10/12/21 07:58 Dose: 200 mg Documented by: Chlorhexidine Gluconate (Chlorhexidine Gluconate 15 Ml Cup) 15 ml MUCOUS MEM BID [facility] Last Admin: 10/12/21 07:56 Dose: 15 ml Documented by: Cholecalciferol (Cholecalciferol 125 Mcg (5000 Iu) Tablet) 125 mcg PO DAILY [facility] Last Admin: 10/12/21 07:57 Dose: 125 mcg Documented by: Hydromorphone HCl (Hydromorphone 1 Mg/Ml 1 Ml Syringe) 1 mg IVP Q3HR [facility] Last Admin: 10/12/21 11:42 Dose: 1 mg Documented by: Sodium Chloride (Saline 0.9%) 1,000 mls @ 20 mls/hr IV .Q24H [facility] Last Admin: 10/12/21 03:15 Dose: 100 mls/hr Documented by: Norepinephrine Bitartrate 4 mg (/ Sodium Chloride) 254 mls @ 11.354 mls/hr IV .[id number] [facility]; Protocol Last Admin: 10/12/21 03:14 Dose: Not Given Documented by: Insulin Aspart (Insulin Aspart (Novolog) 100 Unit/Ml Vial) 0 unit SQ Q6H [facility]; Protocol Last Admin: 10/12/21 12:23 Dose: Not Given Documented by: Levetiracetam (Levetiracetam 750 Mg Tab) 1,500 mg PO Q12HR [facility] Last Admin: 10/12/21 10:25 Dose: 1,500 mg Documented by: Lorazepam (Lorazepam 2 Mg/Ml Inj) 1 mg IV Q4HR [facility] Last Admin: 10/12/21 14:35 Dose: Not Given Documented by: Metoprolol Tartrate (Metoprolol Tartrate 25 Mg Tab) 25 mg PO BID [facility] Last Admin: 10/12/21 09:27 Dose: Not Given Documented by: Miscellaneous Information (Potassium Replacement Protocol 1 Each Misc) 1 each MISCELLANE DAILY PRN; Protocol PRN Reason: Per Protocol Miscellaneous Information (Magnesium Replacement Protocol 1 Each Misc) 1 each MISCELLANE DAILY PRN; Protocol PRN Reason: Per Protocol Miscellaneous Information (Potassium Replacement Protocol 1 Each Misc) 1 each MISCELLANE DAILY PRN; Protocol PRN Reason: Per Protocol Naloxone HCl (Naloxone 0.4 Mg/Ml 1 Ml Vial) 0.2 mg IV Q2M PRN PRN Reason: Opioid Reversal Pantoprazole Sodium (Pantoprazole 40 Mg/10 Ml Vial) 40 mg IV DAILY [facility] Last Admin: 10/12/21 07:56 Dose: 40 mg Documented by: Quetiapine Fumarate (Quetiapine 100 Mg Tab) 100 mg PO BID [facility] Last Admin: 10/12/21 09:27 Dose: Not Given Documented by: Physical exam: GENERAL: The patient is intubated and off sedation although lethargic today, FiO2 is 40% and PEEP is 8 HEENT: Pupils are round and equally reacting to light. EOMI. No scleral icterus. No conjunctival pallor. Normocephalic, atraumatic. No pharyngeal erythema. No thyromegaly. CARDIOVASCULAR: S1 and S2 present. No murmurs, rubs, or gallops. PULMONARY: diminished breath sounds bilaterally with coarse rhonchi noted, c oughing frequently on exam ABDOMEN: Soft, nontender, nondistended, normoactive bowel sounds. No palpable organomegaly. MUSCULOSKELETAL: No joint swelling or deformity. EXTREMITIES: No cyanosis, clubbing, or pedal edema. NEUROLOGICAL: Awake following simple commands and continues off sedation SKIN: No rashes. no petechiae. Assessment: Altered mental status secondary to metabolic encephalopathy, ruled out intercranial lesions Acute hypoxic respiratory failure secondary to COVID-19 pneumonia, still requiring mechanical ventilation Status post tracheostomy and PEG tube placement Sepsis secondary to UTI and COVID-19 pneumonia, resolved with treatment Breakthrough seizure, history of previous seizures Unstageable sacral pressure ulcer Cardiomyopathy, EF of 30-35% Acute kidney injury, improved with treatment History of coronary artery disease history of pulmonary embolism History 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 left foot drop Status post permanent pacemaker History of glaucoma but surgical intervention Full code Plan: Recommend continue with current medications and management. Patient was placed back on mechanical ventilation via tracheostomy and continuing to attempt trach collar although patient became more hypoxic requiring reintubation with pulmonary bear keeper following closely. Patient continues off antibiotics and antifungals and will order repeat sputum culture which is currently pending. Patient has been afebrile. Patient is currently on an FiO2 of 60% with a T piece trach collar and tolerating today. Patient is off sedation and receiving Dilaudid as needed. Recommend continue with antiepileptics. Overall prognosis continues to be guarded given multiple complex medical issues. Further recommendations to follow based on the clinical course of the patient. Will continue to monitor closely. Objective - Vital Signs Vital signs: Vital Signs Temp 98.2 F 10/12/21 08:00 Pulse 82 10/12/21 09:00 Resp 28 H 10/12/21 09:00 BP 94/52 10/12/21 09:00 Pulse Ox 98 10/12/21 09:00 Intake & Output 10/11/21 10/12/21 10/12/21 18:59 06:59 18:59 Intake Total 2198.822 2970 206.19 Output Total 1000 1080 60 Balance 4565.815 8735 146.19 Weight 62 kg Intake: IV 1300 2100 100 Sodium Chloride 0.9% 1, 1200 1300 100 000 ml @ 100 mls/hr IV . Q10H ADDIE Rx#:[id number] levETIRAcetam IV 1,500 mg 100 800 In Saline 1 100ml.bag @ 400 mls/hr IVPB Q12HR ADDIE Rx#:[id number] Intake, IV Titration 98.822 46.19 Amount Dexmedetomidine/0.9% NaCl 87.164 46.19 (Pmx) 400 mcg In Empty Bag 1 bag @ 0.2 MCG/KG/HR 2.98 mls/hr IV .Q24H ADDIE Rx#:[id number] Norepinephrine 4 mg In 11.658 Sodium Chloride 0.9% 250 ml @ 0.05 MCG/KG/MIN 11. 354 mls/hr IV .[id number] ADDIE Rx#:[id number] Tube Feeding 710 780 60 Other 90 90 Output: Urine 1000 1080 60 Other: Voiding Method Indwelling Catheter Indwelling Catheter # Bowel Movements 1 1 ABP, PAP, CO, CI - Last Documented Arterial Blood Pressure 123/58 - Labs CBC & Chem 7: 10/12/21 09:36 10/12/21 09:36 Labs: Abnormal Lab Results - Last 24 Hours (Table) 10/11/21 10/11/21 10/11/21 Range/Units 12:27 13:29 18:53 ABG pH (7.35-7.45) ABG pO2 (83-108) mmHg ABG HCO3 (21-25) mmol/L ABG Total CO2 (19-24) mmol/L ABG O2 Saturation (94-97) % POC Glucose (mg/dL) 129 H 118 H 110 H (75-99) mg/dL 10/12/21 10/12/21 10/12/21 Range/Units 00:07 05:39 05:45 ABG pH 7.47 H (7.35-7.45) ABG pO2 166 H (83-108) mmHg ABG HCO3 27 H (21-25) mmol/L ABG Total CO2 28 H (19-24) mmol/L ABG O2 Saturation 99.4 H (94-97) % POC Glucose (mg/dL) 119 H 115 H (75-99) mg/dL
[2021-10-12 18:04] LABS: Glucose,Whole Blood 105 mg/dL (75-99)
[2021-10-12] MEDS: levETIRAcetam IV 1,500 MG in SALINE 1 100ML.BAG IVPB SCH ×3 (20:21→20:24)
--- NOTE | 2021-10-12 22:09 | P.PN ---
Subjective Progress Note Date: 10/12/21 Principal diagnosis: Pneumonia pressure ulcer and multiple antibiotic allergies Patient is a 51-year-old female presenting to the hospital on September 10 for mental status changes patient did have a evidence of COVID-19 infection, with respiratory failure requiring intubation also with E. coli UTI and the patient did have multiple antibiotic allergies. The patient is status post tracheostomy and PEG tube placement on 09/23/2021 On today's evaluation that is to to 10/12/2021, patient continues to be afebrile, the patient is hemodynamically stable not requiring pressor support, the patient is back on the trach collar, patient been tolerating her tube feeds and no diarrhea has been reported by the nursing staff Objective - Vital Signs Vital signs: Vital Signs Temp 98.2 F 10/12/21 12:00 Pulse 90 10/12/21 12:00 Resp 15 10/12/21 12:00 BP 151/83 10/12/21 12:00 Pulse Ox 96 10/12/21 12:00 Intake & Output 10/11/21 10/12/21 10/12/21 18:59 06:59 18:59 Intake Total 2198.822 2970 556.19 Output Total 1000 1080 2636 Balance 3435.421 8810 -2079.81 Weight 62 kg 62 kg Intake: IV 1300 2100 180 Sodium Chloride 0.9% 1, 1200 1300 180 000 ml @ 20 mls/hr IV . Q24H [facility] Rx#:[id number] levETIRAcetam IV 1,500 mg 100 800 In Saline 1 100ml.bag @ 400 mls/hr IVPB Q12HR ADDIE Rx#:[id number] Intake, IV Titration 98.822 46.19 Amount Dexmedetomidine/0.9% NaCl 87.164 46.19 (Pmx) 400 mcg In Empty Bag 1 bag @ 0.2 MCG/KG/HR 2.98 mls/hr IV .Q24H ADDIE Rx#:[id number] Norepinephrine 4 mg In 11.658 Sodium Chloride 0.9% 250 ml @ 0.05 MCG/KG/MIN 11. 354 mls/hr IV .[id number] ADDIE Rx#:[id number] Tube Feeding 710 780 300 Other 90 90 30 Output: Urine 1000 1080 2635 Stool 1 Other: Voiding Method Indwelling Catheter Indwelling Catheter Indwelling Catheter # Bowel Movements 1 1 ABP, PAP, CO, CI - Last Documented Arterial Blood Pressure 123/58 - Exam GENERAL DESCRIPTION: Middle-aged female, no distress. No tachypnea or accessory muscle of respiration use. LUNGS: Unlabored breathing. Decreased breath sound at the base. No wheeze or crackle. HEART: S1, S2, regular rate and rhythm. No loud murmur ABDOMEN: Soft, no tenderness , EXTREMITIES: No edema of feet. - Labs CBC & Chem 7: 10/12/21 09:36 10/12/21 09:36 Labs: Abnormal Lab Results - Last 24 Hours (Table) 10/11/21 10/11/21 10/12/21 Range/Units 13:29 18:53 00:07 RBC (3.80-5.40) m/uL Hgb (11.4-16.0) gm/dL Hct (34.0-46.0) % MCV (80.0-100.0) fL MCHC (31.0-37.0) g/dL Lymphocytes # (1.0-4.8) k/uL ABG pH (7.35-7.45) ABG pO2 (83-108) mmHg ABG HCO3 (21-25) mmol/L ABG Total CO2 (19-24) mmol/L ABG O2 Saturation (94-97) % Sodium (137-145) mmol/L Creatinine (0.52-1.04) mg/dL Glucose (74-99) mg/dL POC Glucose (mg/dL) 118 H 110 H 119 H (75-99) mg/dL 10/12/21 10/12/21 10/12/21 Range/Units 05:39 05:45 09:36 RBC 2.23 L (3.80-5.40) m/uL Hgb 7.1 L (11.4-16.0) gm/dL Hct 23.0 L (34.0-46.0) % MCV 103.3 H (80.0-100.0) fL MCHC 30.7 L (31.0-37.0) g/dL Lymphocytes # 0.7 L (1.0-4.8) k/uL ABG pH 7.47 H (7.35-7.45) ABG pO2 166 H (83-108) mmHg ABG HCO3 27 H (21-25) mmol/L ABG Total CO2 28 H (19-24) mmol/L ABG O2 Saturation 99.4 H (94-97) % Sodium (137-145) mmol/L Creatinine (0.52-1.04) mg/dL Glucose (74-99) mg/dL POC Glucose (mg/dL) 115 H (75-99) mg/dL 10/12/21 10/12/21 Range/Units 09:36 12:00 RBC (3.80-5.40) m/uL Hgb (11.4-16.0) gm/dL Hct (34.0-46.0) % MCV (80.0-100.0) fL MCHC (31.0-37.0) g/dL Lymphocytes # (1.0-4.8) k/uL ABG pH (7.35-7.45) ABG pO2 (83-108) mmHg ABG HCO3 (21-25) mmol/L ABG Total CO2 (19-24) mmol/L ABG O2 Saturation (94-97) % Sodium 135 L (137-145) mmol/L Creatinine 0.29 L (0.52-1.04) mg/dL Glucose 108 H (74-99) mg/dL POC Glucose (mg/dL) 115 H (75-99) mg/dL Assessment and Plan (1) Pneumonia Current Visit: Yes Status: Acute Code(s): J18.9 - PNEUMONIA, UNSPECIFIED ORGANISM SNOMED Code(s): 848386224 (2) Allergy to multiple antibiotics Current Visit: Yes Status: Acute Code(s): Z88.1 - ALLERGY STATUS TO OTHER ANTIBIOTIC AGENTS SNOMED Code(s): 808500956 (3) COVID-19 Current Visit: Yes Status: Acute Code(s): U07.1 - COVID-19 SNOMED Code(s): 083837695 Plan: 1-patient with unstageable sacral pressure ulcer as well as unstageable pressure ulcer to the upper back area, local wound care with the medahoney followed by moist dressing and keep the area off the pressure, left elbow pressure ulcer st age II with no cellulitis local wound care with a dry with Aquacel silver dressing and keep the area off the pressure 2-Patient with acute respiratory failure which is multifactorial in this patient who did have a covid19 pneumonia and a concern for possible secondary bacterial pneumonia , patient did have new fever on 10/03/2021 with concern for possible PICC line infection blood cultures were obtained from the PICC line has been negative , patient is currently being monitor closely off antibiotics 3-patient sputum did grow Radha, could be colonizer versus oropharyngeal candidiasis patient has completed her course of Eraxis, and monitor clinical course closely Time with Patient: Less than 30
[2021-10-13] MEDS: LORazepam 2 MG/ML INJ IV SCH ×6 (00:09→20:11)
[2021-10-13] MEDS: INSULIN ASPART (NovoLOG) 100 UNIT/ML VIAL SQ SCH ×4 (00:14→17:46)
[2021-10-13 00:15] LABS: Glucose,Whole Blood 114 mg/dL (75-99)
[2021-10-13] MEDS: HYDROmorphone 1 MG/ML 1 ML SYRINGE IVP SCH ×8 (00:17→20:11)
[2021-10-13] MEDS: NOREPINEPHRINE 4 MG in SODIUM CHLORIDE 0.9% 250 ML IV SCH (02:05)
[2021-10-13 05:27] LABS: Glucose,Whole Blood 113 mg/dL (75-99)
[2021-10-13 06:13] LABS: Basophils % (A) 0 %; Eosinophils # (A) 0.1 k/uL (0-0.7); Eosinophils % (A) 2 %; HCT 23.4 % (34.0-46.0); HGB 7.4 gm/dL (11.4-16.0); Hypochromasia Slight; Lymphocytes # (A) 0.9 k/uL (1.0-4.8); Lymphocytes % (A) 15 %; MCHC 31.6 g/dL (31.0-37.0); MCV 101.3 fL (80.0-100.0); Macrocytosis Slight; Mean Platelet Volume 7.7; Monocytes # (A) 0.3 k/uL (0-1.0); Monocytes % (A) 5 %; Neutrophils # (A) 4.7 k/uL (1.3-7.7); Neutrophils % (A) 77 %; Platelet Count 348 k/uL (150-450); RBC 2.31 m/uL (3.80-5.40); RDW 15.1 % (11.5-15.5); WBC 6.1 k/uL (3.8-10.6)
[2021-10-13 06:31] LABS: ALT 35 U/L (4-34); AST 31 U/L (14-36); African American GFR (CKD) >90 (>60 ml/min/1.73 sqM); Albumin 2.6 g/dL (3.5-5.0); Alkaline Phosphatase 75 U/L (38-126); Anion Gap 5 mmol/L; Blood Urea Nitrogen 19 mg/dL (7-17); Calcium 8.4 mg/dL (8.4-10.2); Carbon Dioxide 29 mmol/L (22-30); Chloride 104 mmol/L (98-107); Glucose 102 mg/dL (74-99); Non-African American GFR(CKD) >90 (>60 ml/min/1.73 sqM); Potassium 3.8 mmol/L (3.5-5.1); Sodium 138 mmol/L (137-145); Total Bilirubin 0.4 mg/dL (0.2-1.3); Total Protein 5.6 g/dL (6.3-8.2)
[2021-10-13] MEDS ORDERED: POTASSIUM BICARBONATE/CIT AC 20 MEQ TABLET.EFF NG-TUBE SCH (07:00)
--- NOTE | 2021-10-13 08:00 | XR ---
EXAMINATION TYPE: XR chest 1V portable DATE OF EXAM: 10/13/2021 COMPARISON: X-ray dated 10/12/2021 HISTORY: Follow-up TECHNIQUE: Single frontal view of the chest is obtained. FINDINGS: Unchanged position of the tracheostomy tube. Right PICC line with the tip is seen at the superior asp ect of the right atrium. Left-sided chest wall ICD generator, unchanged. Suspected subtle opacity in the left mid to lower lung zone, obscured by the left side of the heart. Questionable small left pleu ral effusion, grossly stable. Unchanged remainder of the lungs and bony thoracic cage. IMPRESSION: No significant interval change as described above.
[2021-10-13] MEDS: AMIODARONE 200 MG TAB PO SCH (08:23)
[2021-10-13] MEDS: PANTOPRAZOLE 40 MG/10 ML VIAL IV SCH (08:23)
[2021-10-13] MEDS: METOPROLOL TARTRATE 25 MG TAB PO SCH ×2 (08:23→20:11)
[2021-10-13] MEDS: CHOLECALCIFEROL 125 MCG (5000 IU) TABLET PO SCH (08:23)
[2021-10-13] MEDS: APIXABAN 5 MG TAB PO SCH ×2 (08:23→20:11)
[2021-10-13] MEDS: carBAMazepine 200 MG TAB PO SCH ×3 (08:25→20:11)
[2021-10-13] MEDS: QUEtiapine 100 MG TAB PO SCH ×2 (08:25→20:11)
--- NOTE | 2021-10-13 09:43 | P.PN ---
Subjective Progress Note Date: 10/13/21 Principal diagnosis: Respiratory failure. Reevaluated today on 09/18/21, patient remains in the ICU, intubated and mechanically ventilated. Patient is not making any significant neurological improvement. She has been off sedation for few days, yesterday we started the patient only on Precedex, and that's mostly to keep her synchronous with the ventilator. Again her mental status is basically about the same, and she is not showing much improvement. She opens eyes slightly to deep painful stimuli, but no purposeful movement and no responses to verbal stimuli. She is on assist control rate of 32 tidal volume 325 FiO2 was 50% and PEEP was 8 however I cut down her FiO2 to 45%. Patient is receiving enteral feeding, vital AF at 34 mL per hour. ABG today showed a pO2 of 107 pCO2 44 pH of 7.46. Basic metabolic profile is normal WBC count is 7.6 hemoglobin is 9.5. No significant metabolic abnormality to explain her encephalopathy at this point. Patient is still being followed by neurology on the case. Patient is still being treated for coronary virus infection, and UTI on admission secondary to E. coli. 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 No acute process was noted. Patient remains on seizure medications as per neurology including Keppra and Tegretol. EEG showed slowing/moderate degree of slowing suggestive of generalized cerebral dysfunction. This is seen with toxic metabolic encephalopathy. Reevaluated today on 09/19/21, patient remains in the ICU, intubated and mechanically ventilated, she is on assist control rate of 32 tidal volume of 325 FiO2 45% and PEEP of 8. Patient had to be placed on propofol yesterday at 50 mcg/kg/m, she is on IV fluid at 50 mL per hour. ABG showed a pO2 of 78 pCO2 of 47 pH of 7.44. Chest x-ray is basically about, no change. WBC count is 9.2 hemoglobin is 10.3. Electrolytes are normal. Again the patient had to be placed back on propofol because she was getting agitated, restless, and not syn chronous with the ventilator yesterday. Remains on propofol today, and patient is not responding to any stimuli. Hence I'm keeping her on propofol, I believe the patient will eventually require tracheostomy and PEG tube placement unless CODE STATUS is changed to comfort care. Chest x-ray is basically showing no significant abnormalities. She does have mild pulmonary vascular congestion. Reevaluated today on 09/20/21, patient remains in the ICU, intubated and mechanically ventilated. She is on assist control rate of 32 tidal volume 325 FiO2 is 45%, PEEP is at 8. Patient is back on propofol, intermittently has been receiving Dilaudid, patient becomes at times agitated, and asynchronous with the ventilator, early in the week, I was able to hold sedation for a number of days, however the patient remained unresponsive to verbal stimuli, and apparently she had significant toxic metabolic encephalopathy. CT of the brain was nondiagnostic. Patient was seen by neurology on consultation, and still believe that this is a occipital metabolic encephalopathy picture. Patient is on propofol now at 50 mcg/kg/m, not requiring any other sedatives or narcotics. Patient has been feeding/enteral feeding vital AF at 34 mL per hour. ABG today showed a pO2 of 101 pCO2 47 pH of 7.44. Chest x-ray continues to show retrocardiac density likely atelectasis, otherwise no significant findings on the chest x-ray Progress note dated 09/21/2021. This is a 51-year-old female, who was admitted to the hospital on September 10. She came in with mental status changes, sepsis, and hypernatremia. She came to the intensive care unit on September 10, and was intubated for respiratory failure on 09/11/2021. The patient did test positive for coronavirus. She remains on mechanical ventilator. The patient is on the volume assist control mode, rate 32, tidal volume 325, FiO2 45%, and PEEP of 8. Blood gases show pO2 of 91, pCO2 49, and pH is 7.45. The patient's getting half-normal saline at 50 mL an hour, propofol at 50 mcg/kg/m, and vital AF at 34 mL an hour, which is goal. White count 10.2, hemoglobin 9.7, hematocrit 30.4, and platelet count was normal. Sodium 139, potassium 3.5, chlorides 104, CO2 32, anion gap 3, BUN 34, and creatinine 0.65. Microbiologic studies show evidence of Escherichia coli in the urine from September 10, and presumptive staph aureus in the sputum from August 30 0. The chest x-ray shows left lower lobe atelectasis and/or infiltrates. The patient is currently on antifungals, and aztreonam. The infectious disease doctor is currently on the case. Progress note dated 09/22/2021. 51-year-old female who was admitted to the hospital on 09/10/2021. She came in with mental status changes, sepsis, and hypernatremia. She came to the intensive care unit on September 10, and was intubated for respiratory failure on 09/11/2021. She did test positive for coronavirus. She remains on the mechanical ventilator. The plan is for a tracheostomy and PEG tube placement today by one of the surgeons. The patient also had a right radial arterial line placed by our team. Currently, she is on the volume assist control mode, rate 32, tidal volume 325, FiO2 45%, PEEP of 8. Arterial blood gases show pO2 of 88, pCO2 46, and a pH is 7.48. The patient is on propofol at 40 mcg/kg/m, saline at 20 mL an hour, half-normal saline at 50 mL an hour, and vital, at 46 mL an hour, which is goal. Obviously, tube feeds on hold for anticipated surgery today. White count 9.3, hemoglobin 8.8, hematocrit 27.3, and platelet count 269,000. Sodium 139, potassium 3.4, chlorides 104, CO2 33, anion gap 2, BUN 26, and creatinine 0.54. AST 500, ALT 166. An ultrasound the right upper quadrant will be ordered. Chest x-ray shows persistent left lower lobe atelectasis and/or inf iltrate. Progress note dated 09/23/2021. This is a 51-year-old female, again seen in room 254. She's now been in the hospital for 13 days. She was admitted on 09/10/2021. She came in with mental status changes, and sepsis. She came to the intensive care unit on September 10, and was intubated respiratory failure on 09/11/2021. She did test positive for coronavirus. She remains on the mechanical ventilator. The patient was to have a tracheostomy and PEG tube placement performed. It was to be done yesterday but for some reason did not take place. She remains on the volume assist control, rate 32, tidal volume 325, FiO2 45%, and PEEP of 8. Blood gases show pO2 80, pCO2 39, pH is 7.48. The patient's getting saline at 20 mL an hour, half-normal saline at 50 mL an hour, and tube feeds are currently on hold. White count 10, hemoglobin 9.3, hematocrit 29.2, and platelet count 341,000. Sodium 139, potassium 3.6, chlorides 106, CO2 27, anion gap 6, BUN 23, and creatinine 0.59. Albumin is 2.4. Microbiology from September 10, shows a urine that was positive for an E. coli, and a sputum from September 17, it is positive for Staphylococcus aureus. The patient is currently on vancomycin and Eraxis. Progress note dated 09/24/2021. 51-year-old female, again seen in room 254. The patient underwent tracheostomy and PEG tube placement yesterday, on September 23. The patient is now been in the hospital for 14 days. The patient was admitted on 09/10/2021. She did test positive for coronavirus. The patient was intubated on 09/11/2021, for respiratory failure. Currently, she is on volume assist control, rate 32, tidal volume 325, FiO2 40%, and PEEP of 8. Arterial blood gases show pO2 of 79, pCO2 39, pH is 7.45. The patient's getting half-normal saline at 50 mL an hour. She is on propofol at 40 mcg/kg/m. Tube feedings are still on hold. She's getting an antifungal, as well as Levaquin. Labs include a white count 9.1, hemoglobin 9.5, hematocrit 29.5 and platelet count which is normal. Sodium 133, potassium 3.4, chlorides 101, CO2 26, anion gap 6, BUN 19, and creatinine 0.53. AST is 229, and ALTs 159. Microbiologic studies are positive for a urine sample from September 10, for E. coli, and methicillin sensitive staph aureus in the sputum from September 17. Chest x-ray shows patchy bibasilar and bilateral infiltrates. Progress note dated 09/25/2021. 51-year-old female again seen in room 254. She underwent tracheostomy and PEG tube placement on September 23. The patient has been in the hospital now for 15 days. She remains on the ventilator. She is on the volume assist control mode, rate 32, tidal volume 325, FiO2 40%, PEEP of 8. Blood gases show pO2 of 95, pCO2 51, and pH is 7.44. The patient's getting half-normal saline at 50 mL an hour, and currently, propofol is off. She is also on vital 1.2 at 46 mL an hour, which is goal. She remains on Levaquin for a sputum positive for methicillin sensitive staph aureus. Also, the patient is on an antifungal as per infectious diseases. Because of her poor mental status, we will repeat a computed tomography scan of the brain with contrast. Her hoping to be able to get this patient to a long-term acute care facility or specialized nursing facility. White count 9.9, hemoglobin 9, hematocrit 26.8 and platelet count 333,000. Sodium 137, potassium 3.9, chlorides 102, CO2 31, anion gap 4, BUN 18, creatinine 0.53. Chest x-ray shows a tracheostomy tube in the midline. There is diffuse bilateral infiltrates, with worsening in the retrocardiac area. Progress note dated 09/26/2021. This is a 51-year-old female again seen in room 254. She underwent tracheostomy and PEG tube placement on September 23. She's now been in the hospital for 16 days. She remains on the ventilator. The patient was admitted on 09/10/2021. She did test positive for coronavirus. The patient was intubated on 09/11/2021, for respiratory failure. She remains on the ventilator. She is on the volume assist control mode, rate 32, tidal volume 325, FiO2 40%, to be reduced down to 35%, and PEEP of 8. Blood gases show pO2 of 111, pCO2 42, and a pH is 7.52. The patient is receiving saline at 20 mL an hour, half-normal saline at 50 mL an hour, and vital AF at 57 mL an hour, which is goal. The patient remains on Levaquin and Eraxis. The patient's chest x-ray is unchanged. Recent repeat brain CT was negative. White count 8.7, hemoglobin 8.8, hematocrit 27.6, and platelet count 330,000. Sodium 138, potassium 3.6, chlorides 102, CO2 34, anion gap 2, BUN 22, creatinine 0.38. Progress note dated 09/27/2021. 51-year-old female, again seen in room 254. The patient underwent tracheostomy and PEG tube placement, on 09/23/2021. She's now been in the hospital for 17 days. She remains on the ventilator. She was initially admitted back on 09/10/2021. She did test positive for coronavirus. She was intubated on 09/11/2021, for worsening respiratory failure. She remains on the mechanical ventilator. The patient is on the volume assist control mode, rate 32, tidal volume 325, FiO2 35%, and PEEP of 8. Blood gases show pO2 of 82, pCO2 40, and pH is 7.49. She's getting saline at 20 mL an hour, half-normal saline at 50 mL an hour, and vital AF at 57 and hour, which is goal. We are going to DC her Decadron. She been on it since the . White count 8.3, hemoglobin 9.5, hematocrit 30, and platelet count 356,000. Sodium 138, potassium 4, chlorides 103, CO2 31, anion gap 4, BUN 22, creatinine 0.45. Microbiology shows a staph aureus from September 17, and the sputum. It's a methicillin sensitive staph aureus. The patient remains on Eraxis and Levaquin. Chest x-ray is essentially unchanged. Reevaluated today on 10/09/2021, patient remains in the ICU, remains on ventilatory support, she is on pressure control of 22 inspiratory time of 0.9 FiO2 40% PEEP of 5. ABG today showed a pO2 of 131 pCO2 of 31 pH of 7.52. Patient is not requiring any pressors, she is not requiring any drips, no sedation is needed, she is still receiving tube feeding vital HPI 22 mL per hour. Patient had a relatively uneventful night, and we plan to place the patient back on a mode of weaning, and I plan to place her back either on a T piece orotracheal collar today. No ABG was done today. No chest x-ray was done. Chest x-ray from yesterday showed basically no change. Tracheostomy is intact. Reevaluated today on 10/10/2021, patient remains on TP, over the last 24 hours, tolerating weaning very well, seems to be quite agitated, and would like to go home. Patient is getting more agitated with the t piece itself, although she seems to be very comfortable and her O2 saturation is high in the 90s. Went ahead and recommended decannulation of the trach, and I removed the tracheostomy at bedside, and the sutures around the tracheostomy were also removed. Patient felt much better and she was switched to a nasal cannula. WBC count today is 6.6 hemoglobin 8.1 electrodes. Normal except for low potassium be corrected accordingly. Went ahead and discontinued his Eraxis, patient is on vancomycin, and hopefully that will be discontinued by infectious disease today on rounds. No chest x-ray was done today. But I reviewed the chest x-ray from yesterday Reevaluated today on 10/11/2021, patient remains in the ICU, yesterday I D cannulated the patient, however few hours later, the patient developed left lower lobe atelectasis/collapse, and she was having hard time breathing, she could not clear any of her secretions. Patient was very weak, and she had a very ineffective cough. I was notified about this patient by the nurse and by respiratory therapy, I recommended that the patient gets her trach placed back again. And this time she is to have a size 6 a size 7 Shiley tube placed by respiratory therapy. Indeed the patient had a size 6 placed, placed back on mechanical ventilation overnight, since she was agitated we added Precedex overnight. Remains on the vent overnight, and she is on Precedex. Her ABG today showed a pO2 of 105, pCO2 34 pH of 7.51. This was on assist control mode of mechanical ventilation, she was on rate of 28 tidal volume 400 FiO2 40% and PEEP of 8. Then I recommended that we give the patient today another trial on trach collar but she is to be suctioned if she develops any shortness of breath or she develops worsening secretions. Patient remains on vital AF at 60 mL/h she was on a very low dose of norepinephrine at 0.02 which I have discontinued this morning. Chest x-ray is showing dramatic improvement in her left lower lobe atelectasis/collapse. But it is not fully completely resolved. Nonetheless the patient continues to have minimal atelectasis at the left base. WBC count today is 7 hemoglobin 7.2 electrolytes are normal renal profile is normal. Progress note dated 10/12/2021. The patient is again seen in room 254. I saw her last on September 27. The patient was admitted to the hospital on September 10. She came in with mental status changes, seizures, and acute kidney injury, as well as coronavirus infection. The patient came to the intensive care unit on 09/11/2021, and was intubated on the same day. The patient had a tracheostomy and PEG tube placed on 09/23/2021. The patient remains on the ventilator. She has had some weaning with trach collar. Currently, she is on the volume assist control, rate 28, tid al volume 400, FiO2 40%, and PEEP of 8. Blood gases show a PaO2 of 166, pCO2 37, and pH is 7.47. That was on 50% FiO2. The patient's on saline at 100 mL an hour, and Precedex at 0.2 mcg/kg/h. We are going to give the patient Ativan, Seroquel, and Dilaudid. We will discontinue the Precedex. We'll make sure the fluids were cut back, and give the patient Lasix 40 mg IV push. The only lab data from today include a glucose of 115, and blood gases as mentioned. Chest x-ray shows some mild interstitial changes, and a retrocardiac and left basilar opacity. Microbiology is reviewed. And there is no recent culture data of significance. Progress note dated 10/13/2021. Patient is again seen in room 254. The patient is been in the hospital now for 33 days. The patient was admitted to the hospital on September 10. She came in with mental status changes, acute kidney injury, and seizures. She also tested positive for coronavirus infection. She came to the intensive care unit on September 11, and was intubated on 09/11/2021. The patient had a tracheostomy and PEG tube placed on 09/23/2021. Currently, she is on volume assist control, with a rate of 28, tidal volume 400, FiO2 40%, and PEEP of 8. No blood gases were done today. The patient's on saline at 20 mL an hour, and vital AF at 60 mL an hour, which is goal. Yesterday, she spent from 8:30 AM to noon, on CPAP, and from noon, to 6:30 PM on trach collar. We will attempt to do the same thing today. Laboratory data includes a white count 6.1, hemoglobin 7.4, hematocrit 23.4, and platelet count 348,000. Sodium, potassium, chloride, CO2, all normal. Anion gap is normal. BUN 19, creatinine 0.42. Albumin is 2.6. Chest x-ray shows diffuse bilateral infiltrates, and is unchanged. Objective - Vital Signs Vital signs: Vital Signs Temp 98.3 F 10/13/21 08:00 Pulse 89 10/13/21 09:00 Resp 18 10/13/21 09:00 BP 103/56 10/13/21 09:00 Pulse Ox 97 10/13/21 09:00 Intake & Output 10/12/21 10/13/21 10/13/21 18:59 06:59 18:59 Intake Total 1066.19 1130 310 Output Total 4660 555 85 Balance -3593.81 575 225 Weight 62 kg Intake: IV 300 260 40 Sodium Chloride 0.9% 1, 300 260 40 000 ml @ 20 mls/hr IV . Q24H ADDIE Rx#:[id number] Intake, IV Titration 46.19 Amount Dexmedetomidine/0.9% NaCl 46.19 (Pmx) 400 mcg In Empty Bag 1 bag @ 0.2 MCG/KG/HR 2.98 mls/hr IV .Q24H ADDIE Rx#:[id number] Tube Feeding 660 780 180 Other 60 90 90 Output: Urine 4660 555 85 Other: Voiding Method Indwelling Catheter Indwelling Catheter ABP, PAP, CO, CI - Last Documented Arterial Blood Pressure 123/58 - Exam No acute distress, currently off of all sedation, with a midline tracheostomy. HEENT examination is grossly unremarkable. Neck supple. Full range of motion. No adenopathy thyromegaly or neck vein distention. Midline tracheostomy is noted. Cardiovascular examination reveals regular rhythm rate. S1-S2 normal. No S3 or S4. No discernible murmur noted. Heart rate 89 bpm. Heart sounds are distant. Lungs reveal bilateral expiratory rhonchi and wheezes. No crackles. Breath sounds are equal bilaterally. Saturations are 97%. Abdomen soft, without bowel sounds. No masses. PEG tube is noted. Extremities are intact. No cyanosis or clubbing. Trace edema is noted. Skin is without rash or lesion. Neurologic examination is much improved. The patient's awake and alert. - Labs CBC & Chem 7: 10/13/21 05:45 10/13/21 05:45 Labs: Abnormal Lab Results - Last 24 Hours (Table) 10/12/21 10/12/21 10/12/21 Range/Units 09:36 09:36 12:00 RBC 2.23 L (3.80-5.40) m/uL Hgb 7.1 L (11.4-16.0) gm/dL Hct 23.0 L (34.0-46.0) % MCV 103.3 H (80.0-100.0) fL MCHC 30.7 L (31.0-37.0) g/dL Lymphocytes # 0.7 L (1.0-4.8) k/uL Sodium 135 L (137-145) mmol/L BUN (7-17) mg/dL Creatinine 0.29 L (0.52-1.04) mg/dL Glucose 108 H (74-99) mg/dL POC Glucose (mg/dL) 115 H (75-99) mg/dL ALT (4-34) U/L Total Protein (6.3-8.2) g/dL Albumin (3.5-5.0) g/dL 10/12/21 10/13/21 10/13/21 Range/Units 18:03 00:13 05:26 RBC (3.80-5.40) m/uL Hgb (11.4-16.0) gm/dL Hct (34.0-46.0) % MCV (80.0-100.0) fL MCHC (31.0-37.0) g/dL Lymphocytes # (1.0-4.8) k/uL Sodium (137-145) mmol/L BUN (7-17) mg/dL Creatinine (0.52-1.04) mg/dL Glucose (74-99) mg/dL POC Glucose (mg/dL) 105 H 114 H 113 H (75-99) mg/dL ALT (4-34) U/L Total Protein (6.3-8.2) g/dL Albumin (3.5-5.0) g/dL 10/13/21 10/13/21 Range/Units 05:45 05:45 RBC 2.31 L (3.80-5.40) m/uL Hgb 7.4 L (11.4-16.0) gm/dL Hct 23.4 L (34.0-46.0) % MCV 101.3 H (80.0-100.0) fL MCHC (31.0-37.0) g/dL Lymphocytes # 0.9 L (1.0-4.8) k/uL Sodium (137-145) mmol/L BUN 19 H (7-17) mg/dL Creatinine 0.42 L (0.52-1.04) mg/dL Glucose 102 H (74-99) mg/dL POC Glucose (mg/dL) (75-99) mg/dL ALT 35 H (4-34) U/L Total Protein 5.6 L (6.3-8.2) g/dL Albumin 2.6 L (3.5-5.0) g/dL Assessment and Plan Assessment: Acute hypoxemic respiratory failure secondary to coronavirus associated pneumonia, status post intubation and mechanical ventilation on 09/11/2021. Status post tracheostomy and PEG tube placement on 09/23/2021. Acute mental status changes, secondary to toxic/metabolic encephalopathy, much improved. Methicillin sensitive staph aureus pneumonia, left lower lobe, treated. Dehydration, on admission, resolved. History of seizure disorder. Prior history of pulmonary embolism. Paroxysmal atrial fibrillation. Cardiomyopathy with ejection fraction of 30-35%. Status post pacemaker implantation. 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 Hypothyroidism. CAD. History of CVA in 2007. History of recurrent E. coli urinary tract infections, treated. History of psoriasis. History of sacral/coccygeal decubitus ulcer. Plan: Plan dated 09/21/2021. Because of the patient's overall poor status, and the fact that she still is a full code, surgery will be consulted for possible tracheostomy and PEG tube placement. We will continue to follow make recommendations where appropriate. Again, prognosis is very poor. She remains on mechanical ventilator. She remains on appropriate antibiotics. Infectious diseases is following. We will continue to follow make recommendations where appropriate. Plan dated 09/22/2021. The patient is going to hopefully have a tracheostomy and PEG tube placement today. The patient remains on propofol at 40 mcg/kg/m. We did replace the arterial line. The previous arterial line was poorly functional. She had a right radial arterial line placed today by our team. A previous urine culture from September 10 showed Escherichia coli. Sputum from September 17 showed Radha, and presumptive Staphylococcus aureus. The patient remains on an antifungal, and vancomycin as per infectious diseases. Mariam follow and make recommendations where appropriate. Prognosis is certainly guarded. Plan dated 09/23/2021. The patient had methicillin sensitive staph aureus in the sputum and is c urrently on vancomycin. That can be changed to something other than vancomycin. The patient should have a tracheostomy and PEG tube placement today. It was to be done yesterday. The patient is currently off all sedation. Tube feedings on hold. Oxygenation and ventilation are excellent. We will continue to follow make recommendations where appropriate. Overall prognosis remains very guarded. Most recent brain CT shows old infarcts, with nothing acute and no major change. Plan dated 09/24/2021. The patient underwent tracheostomy and PEG tube placement yesterday, 09/23/2021. She remains on the mechanical ventilator. Labs, x-rays, and medications are all reviewed. The staph. in the sputum, was methicillin sensitive. Hence, vancomycin was discontinued, and she was started on Levaquin. She remains on the antifungal. We will continue to follow make recommendations where approp riate. We'll attempt to wean her off the propofol. Additional recommendations and suggestions are coming. Prognosis is guarded. Plan dated 09/25/2021. We'll attempt another CAT scan of the brain with contrast, because of the patient's poor mental status. Two prior CT scans did not show anything acute. The patient remains on Levaquin, and Eraxis. The patient remains off of all. We will continue to follow make recommendations where appropriate. Overall prognosis remains guarded. Plan dated 09/26/2021. Repeat brain CT with contrast, was negative for anything acute. The patient's mental status remains poor. The patient is currently off all sedatives. The patient remains on antibiotic and antifungal as above. The sputum was positive for methicillin sensitive staph aureus. Fungal cultures are currently negative. The patient's chest x-ray is unchanged. The FiO2 was reduced on the 35%. Labs, x-rays, and medications are all reviewed. We will continue to follow and make recommendations where appropriate. Prognosis is certainly guarded. Plan dated 09/27/2021. The patient's repeat brain CT with contrast, was negative for anything acute. The patient's overall mental status remains very poor. The patient will have a daily interruption of sedation, and a spontaneous breathing trial today. We will DC the Decadron, as the patient has been on it since September 12. The sophie ramirez is currently on Levaquin for a methicillin sensitive staph aureus that was discovered in the sputum. He also remains on the antifungal, Eraxis. We will continue to follow make recommendations where appropriate. The patient's labs, x-rays, and medications are all reviewed. Prognosis is guarded. Possible discharge to a long-term acute care facility, or a specialized nursing facility. Plan dated 10/12/2021. The patient's neurologic status is much improved. He is awake and alert. She has had some weaning along the way. Today, we will attempt to get her off of Precedex, by adding some Ativan, Seroquel, and when necessary Dilaudid. In addition, IV fluids are made at KVO. We will give the patient Lasix 40 mg IV push. Additional recommendations and suggestions are forthcoming. Prognosis is guarded. We also place the patient on some pressure support and CPAP, and will transition her to trach collar. Additional recommendations and suggestions are forthcoming. We will continue to follow make recommendations where appropriate. Prognosis is very guarded. Plan dated 10/13/2021. The patient did well yesterday on her eating, and spent about 6-1/2 hours on trach collar. The patient's currently not on any sedation whatsoever. She does get Ativan, and Seroquel, and when necessary Dilaudid. Yesterday, she was on dexmedetomidine. Labs, x-rays, and medications all all reviewed. The patient will again have additional weaning today. Prognosis is guarded. We will con tinue to follow her and make recommendations where appropriate. Hopefully, we can get her to a long-term acute care facility. Time with Patient: Greater than 30
[2021-10-13 11:26] LABS: Glucose,Whole Blood 112 mg/dL (75-99)
[2021-10-13] MEDS: SODIUM CHLORIDE 0.9% 1,000 ML IV SCH (13:31)
--- NOTE | 2021-10-13 15:30 | P.PN ---
Subjective Progress Note Date: 10/13/21 CHIEF COMPLAINT: COVID-19 pneumonia HISTORY OF PRESENT ILLNESS: Patient remains in the ICU on mechanical ventilation. Patient currently on trach piece. Patient is status post tracheostomy and PEG tube placement on 09/23/21. Patient is tolerating tube feedings. They're working on possible transfer to rehab once a bed is available and awaiting insurance authorization PHYSICAL EXAM: VITAL SIGNS: Reviewed. GENERAL:no acute distress. HEENT: Moist buccal mucosa. Head is atraumatic, normocephalic. Tracheostomy site clean and intact. ABDOMEN: Soft. Nondistended. PEG tube site clean dry and intact NEUROLOGIC: awake ASSESSMENT: 1. Acute hypoxic respiratory failure secondary to COVID-19 pneumonia requiring mechanical ventilation 2. Severe protein calorie malnutrition PLAN: -Continue tube feedings -Continue ICU management -Continue supportive care Physician General Medical Practitioner note has been reviewed by physician. Signing provider agrees with the documented findings, assessment, and plan of care. Objective - Vital Signs Vital signs: Vital Signs Temp 98 F 10/13/21 12:00 Pulse 87 10/13/21 14:00 Resp 18 10/13/21 13:00 BP 97/55 10/13/21 14:00 Pulse Ox 99 10/13/21 15:15 Intake & Output 10/12/21 10/13/21 10/13/21 18:59 06:59 18:59 Intake Total 1066.19 1130 800 Output Total 4660 555 555 Balance -3593.81 575 245 Weight 62 kg Intake: IV 300 260 140 Sodium Chloride 0.9% 1, 300 260 140 000 ml @ 20 mls/hr IV . Q24H [facility] Rx#:[id number] Intake, IV Titration 46.19 Amount Dexmedetomidine/0.9% NaCl 46.19 (Pmx) 400 mcg In Empty Bag 1 bag @ 0.2 MCG/KG/HR 2.98 mls/hr IV .Q24H [facility] Rx#:[id number] Tube Feeding 660 780 540 Other 60 90 120 Output: Urine 4660 555 555 Other: Voiding Method Indwelling Catheter Indwelling Catheter Indwelling Catheter ABP, PAP, CO, CI - Last Documented Arterial Blood Pressure 123/58 - Labs CBC & Chem 7: 10/13/21 05:45 10/13/21 05:45 Labs: Abnormal Lab Results - Last 24 Hours (Table) 10/12/21 10/13/21 10/13/21 Range/Units 18:03 00:13 05:26 RBC (3.80-5.40) m/uL Hgb (11.4-16.0) gm/dL Hct (34.0-46.0) % MCV (80.0-100.0) fL Lymphocytes # (1.0-4.8) k/uL BUN (7-17) mg/dL Creatinine (0.52-1.04) mg/dL Glucose (74-99) mg/dL POC Glucose (mg/dL) 105 H 114 H 113 H (75-99) mg/dL ALT (4-34) U/L Total Protein (6.3-8.2) g/dL Albumin (3.5-5.0) g/dL 10/13/21 10/13/21 10/13/21 Range/Units 05:45 05:45 11:24 RBC 2.31 L (3.80-5.40) m/uL Hgb 7.4 L (11.4-16.0) gm/dL Hct 23.4 L (34.0-46.0) % MCV 101.3 H (80.0-100.0) fL Lymphocytes # 0.9 L (1.0-4.8) k/uL BUN 19 H (7-17) mg/dL Creatinine 0.42 L (0.52-1.04) mg/dL Glucose 102 H (74-99) mg/dL POC Glucose (mg/dL) 112 H (75-99) mg/dL ALT 35 H (4-34) U/L Total Protein 5.6 L (6.3-8.2) g/dL Albumin 2.6 L (3.5-5.0) g/dL Microbiology - Last 24 Hours (Table) 10/13/21 03:20 Sputum Culture - Preliminary Sputum
--- NOTE | 2021-10-13 15:34 | P.PN ---
<Godwin, - Last Filed: 10/13/21 15:23> Subjective Progress Note Date: 10/13/21 Principal diagnosis: Altered mental status Patient is a 51-year-old female presented to the emergency room with altered mental status, COVID-19 pneumonia, UTI, seizures and possible stroke. UTI and pneumonia have been treated, and sepsis resolved. 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 Patient has been in the hospital since September 10, 2021 and has had extensive evaluations and treatment. Patient has been followed by multiple consultants including intensive care/pulmonary, neurology, and surgical services. Hospitalists have been providing coverage from 09/10/2021 through 10/05/2021. Patient continues to require mechanical ventilation. Patient is status post PEG tube placement and tracheotomy placement. 10/06/21 Patient was seen and examined at bedside in the ICU. Continues to require mechanical ventilation via tracheostomy. FiO2 40%, PEEP 5, oxygen saturation 96%, blood pressure 149/82. She is alert, responds to name, and follows simple commands. Denies any acute symptoms, unable to speak, replies by shaking her head yes or no. Left-sided paralysis, right-sided weakness able to grasp fingers and wiggle toes on the right. White blood cell count 5.6, kidney fun ction improved the BUN 15, creatinine 0.3, liver enzymes continue to be elevated but improving. Plan was to discharge patient to [facility], insurance denied, awaiting clearance from social work. 10/07/21 Patient was seen and examined at bedside in ICU. Patient is resting comfortably, in no acute distress. Continues to require mechanical ventilation via tracheostomy. FiO2 40%, PEEP 5, oxygen saturation 95%, blood pressure 119/74. Patient is alert and oriented to self, able to follow simple commands. Continued left-sided paralysis, right-sided weakness. Potassium 3.3, was treated according to protocol. Kidney function remains stable, white count 7.1 today. Still waiting for insurance appeal for transfer to long-term acute care. 10/08/21 patient was seen and examined in ICU. Was up in the chair via rebecca lift, in mild distress. Oxygen saturation was declining to 70% while on trach collar. Patient was trying to say that she can't breathe and she needs help. Nurse and respiratory therapist assisted patient back on mechanical ventilation at previous settings, with improvement of oxygen saturation. Patient was alert and oriented to self.continued right-sided weakness and left-sided paralysis.potassium improved to 3.5.still awaiting insurance appeal for transfer to long-term acute care 10/09/2021 Patient was seen and examined at bedside in ICU. Resting comfortably in bed, in no acute distress. Alert and oriented to self. She was trying to say that she wants to go home. Continued right-sided weakness and left-sided paralysis. Continues to require mechanical ventilation via tracheostomy. FiO2 40% PEEP of 5. ABG was stable. Tolerating tube feeding via PEG tube. Awaiting insurance appeal for transfer to long-term [facility]. Hospitalist coverage 10/10/21-10/12/21 10/13/2021 Patient seen and examined at bedside in ICU. Patient lethargic, not answering questions, arises to touch but then falls back asleep. Spoke with nurse regarding patient's status over the weekend, train control electronic technician to try to decannulate the patient, became hypoxic and needed trach replaced. Today patient is on CPAP via tracheostomy, rate of 28, tidal volume 400, FiO2 40%, and PEEP of 8. We'll continue following pulmonary's recommendations. Blood Pressure was decreased on exam, already being treated with fluid bolus. Will follow train control electronic technician recommendations for pressure control. Still waiting for insurance clearance for long-term acute care transfer. Objective - Vital Signs Vital signs: Vital Signs Temp 98 F 10/13/21 12:00 Pulse 87 10/13/21 14:00 Resp 18 10/13/21 13:00 BP 97/55 10/13/21 14:00 Pulse Ox 99 10/13/21 15:15 Intake & Output 10/12/21 10/13/21 10/13/21 18:59 06:59 18:59 Intake Total 1066.19 1130 800 Output Total 4660 555 555 Balance -3593.81 575 245 Weight 62 kg Intake: IV 300 260 140 Sodium Chloride 0.9% 1, 300 260 140 000 ml @ 20 mls/hr IV . Q24H [facility] Rx#:[id number] Intake, IV Titration 46.19 Amount Dexmedetomidine/0.9% NaCl 46.19 (Pmx) 400 mcg In Empty Bag 1 bag @ 0.2 MCG/KG/HR 2.98 mls/hr IV .Q24H [facility] Rx#:[id number] Tube Feeding 660 780 540 Other 60 90 120 Output: Urine 4660 555 555 Other: Voiding Method Indwelling Catheter Indwelling Catheter Indwelling Catheter ABP, PAP, CO, CI - Last Documented Arterial Blood Pressure 123/58 - Constitutional General appearance: Present: no acute distress - EENT Eyes: Present: EOMI Ears: bilateral: normal - Neck Details: Tracheostomy in place - Respiratory Respiratory: bilateral: diminished, rhonchi, wheezing - Cardiovascular Heart rate: 90 Rhythm: regular Heart sounds: normal: S1, S2 - Peripheral pulses radial pulse Peripheral Pulses: bilateral: Diminished - Gastrointestinal Gastrointestinal Comment(s): PEG tube in place General gastrointestinal: Present: normal bowel sounds, soft - Integumentary Integumentary: Present: normal turgor - Neurologic Neurologic: Present: focal deficits - Musculoskeletal Musculoskeletal: Present: right sided weakness, left sided weakness (Paralysis) - Psychiatric Psychiatric Comment(s): Lethargic, arouses to touch, does not answer questions or follow commands - Allied health notes Allied health notes reviewed: nursing - Labs CBC & Chem 7: 10/13/21 05:45 10/13/21 05:45 Labs: Abnormal Lab Results - Last 24 Hours (Table) 10/12/21 10/13/21 10/13/21 Range/Units 18:03 00:13 05:26 RBC (3.80-5.40) m/uL Hgb (11.4-16.0) gm/dL Hct (34.0-46.0) % MCV (80.0-100.0) fL Lymphocytes # (1.0-4.8) k/uL BUN (7-17) mg/dL Creatinine (0.52-1.04) mg/dL Glucose (74-99) mg/dL POC Glucose (mg/dL) 105 H 114 H 113 H (75-99) mg/dL ALT (4-34) U/L Total Protein (6.3-8.2) g/dL Albumin (3.5-5.0) g/dL 10/13/21 10/13/21 10/13/21 Range/Units 05:45 05:45 11:24 RBC 2.31 L (3.80-5.40) m/uL Hgb 7.4 L (11.4-16.0) gm/dL Hct 23.4 L (34.0-46.0) % MCV 101.3 H (80.0-100.0) fL Lymphocytes # 0.9 L (1.0-4.8) k/uL BUN 19 H (7-17) mg/dL Creatinine 0.42 L (0.52-1.04) mg/dL Glucose 102 H (74-99) mg/dL POC Glucose (mg/dL) 112 H (75-99) mg/dL ALT 35 H (4-34) U/L Total Protein 5.6 L (6.3-8.2) g/dL Albumin 2.6 L (3.5-5.0) g/dL Microbiology - Last 24 Hours (Table) 10/13/21 03:20 Sputum Culture - Preliminary Sputum - Imaging and Cardiology Chest x-ray: report reviewed Assessment and Plan Assessment: Altered mental status secondary to metabolic encephalopathy, ruled out intercranial lesions Acute hypoxic respiratory failure secondary to COVID-19 pneumonia, still requiring tracheostomy and CPAP Status post tracheostomy and PEG tube placement Sepsis secondary to UTI and COVID-19 pneumonia, resolved with treatment Hypotensive, was requiring pressure support Breakthrough seizure, history of previous seizures Unstageable sacral pressure ulcer Cardiomyopathy, EF of 30-35% Acute kidney injury, improved with treatment History of coronary artery disease history of pulmonary embolism History 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 left foot drop Status post permanent pacemaker History of glaucoma but surgical intervention Full code Plan: Continue treatment of hypertension train control electronic technician recommendations She continues to require tracheostomy and CPAP, following pulmonary recommendations for weaning Antibiotic, vanco, and antifungal treatment for pneumonia per infectious disease recommendations Continue tube feedings, following dietitian recommendations Continue current medication regimen Continue monitoring her mental status for any changes Continue Wound care for unstageable sacral pressure wound Still waiting for insurance approval for transfer to long-term acute care Further recommendations to come based on patient's clinical course Time with Patient: Greater than 30 <Garth Auguste - Last Filed: 10/22/21 19:45> Subjective I have personally seen and examined the patient, reviewed the documentation and agree with the assessment and plan as written. Number of minutes spent on the visit: Greater than 15. Objective - Vital Signs Vital signs: Vital Signs Temp 98.0 F 10/22/21 12:17 Pulse 94 10/22/21 12:17 Resp 18 10/22/21 12:17 BP 114/64 10/22/21 12:17 Pulse Ox 95 10/22/21 19:36 Intake & Output 10/22/21 10/22/21 10/23/21 06:59 18:59 06:59 Intake Total 1200 960 Output Total 1 1 Balance 1199 959 Weight 55 kg Intake: Oral 0 Tube Feeding 1200 960 Output: Stool 1 1 Other: Voiding Method Diaper Bedpan Diaper # Voids 2 1 # Bowel Movements 1 ABP, PAP, CO, CI - Last Documented Arterial Blood Pressure 123/58 - Labs CBC & Chem 7: 10/22/21 06:37 10/22/21 06:37 Labs: Abnormal Lab Results - Last 24 Hours (Table) 10/21/21 10/22/21 10/22/21 Range/Units 23:49 06:37 06:37 RBC 2.92 L (4.10-5.20) X 10*6/uL Hgb 8.8 L (12.0-15.0) g/dL Hct 29.6 L (37.2-46.3) % MCV 101.4 H (80.0-97.0) fL MCHC 29.7 L (32.0-37.0) g/dL RDW 15.2 H (11.5-14.5) % Eosinophils # 0.45 H (0.04-0.35) X 10*3/uL Carbon Dioxide 27.6 H (20.0-27.5) mmol/L BUN 34.5 H (9.0-27.0) mg/dL Creatinine 0.5 L (0.6-1.5) mg/dL BUN/Creatinine Ratio 69.00 H (12.00-20.00) Ratio POC Glucose (mg/dL) 130 H (75-99) mg/dL 10/22/21 10/22/21 Range/Units 11:56 18:02 RBC (4.10-5.20) X 10*6/uL Hgb (12.0-15.0) g/dL Hct (37.2-46.3) % MCV (80.0-97.0) fL MCHC (32.0-37.0) g/dL RDW (11.5-14.5) % Eosinophils # (0.04-0.35) X 10*3/uL Carbon Dioxide (20.0-27.5) mmol/L BUN (9.0-27.0) mg/dL Creatinine (0.6-1.5) mg/dL BUN/Creatinine Ratio (12.00-20.00) Ratio POC Glucose (mg/dL) 137 H 108 H (75-99) mg/dL
[2021-10-13 17:44] LABS: Glucose,Whole Blood 112 mg/dL (75-99)
--- NOTE | 2021-10-13 22:13 | P.PN ---
Subjective Progress Note Date: 10/13/21 Principal diagnosis: Pneumonia pressure ulcer and multiple antibiotic allergies Patient is a 51-year-old female presenting to the hospital on September 10 for mental status changes patient did have a evidence of COVID-19 infection, with respiratory failure requiring intubation also with E. coli UTI and the patient did have multiple antibiotic allergies. The patient is status post tracheostomy and PEG tube placement on 09/23/2021 On today's evaluation that is to to 10/13/2021, patient remains to be afebrile, the patient is hemodynamically stable not requiring pressor support, the patient is breathing comfortably on the trach collar, patient been tolerating her tube feeds and no diarrhea has been reported by the nursing staff Objective - Vital Signs Vital signs: Vital Signs Temp 98 F 10/13/21 12:00 Pulse 86 10/13/21 13:00 Resp 18 10/13/21 13:00 BP 109/56 10/13/21 13:00 Pulse Ox 100 10/13/21 13:00 Intake & Output 10/12/21 10/13/21 10/13/21 18:59 06:59 18:59 Intake Total 1066.19 1130 720 Output Total 4660 555 555 Balance -3593.81 575 165 Weight 62 kg Intake: IV 300 260 120 Sodium Chloride 0.9% 1, 300 260 120 000 ml @ 20 mls/hr IV . Q24H [facility] Rx#:[id number] Intake, IV Titration 46.19 Amount Dexmedetomidine/0.9% NaCl 46.19 (Pmx) 400 mcg In Empty Bag 1 bag @ 0.2 MCG/KG/HR 2.98 mls/hr IV .Q24H [facility] Rx#:[id number] Tube Feeding 660 780 480 Other 60 90 120 Output: Urine 4660 555 555 Other: Voiding Method Indwelling Catheter Indwelling Catheter Indwelling Catheter ABP, PAP, CO, CI - Last Documented Arterial Blood Pressure 123/58 - Exam GENERAL DESCRIPTION: Middle-aged female, no distress. No tachypnea or accessory muscle of respiration use. LUNGS: Unlabored breathing. Decreased breath sound at the base. No wheeze or crackle. HEART: S1, S2, regular rate and rhythm. No loud murmur ABDOMEN: Soft, no tenderness , EXTREMITIES: No edema of feet. - Labs CBC & Chem 7: 10/13/21 05:45 10/13/21 05:45 Labs: Abnormal Lab Results - Last 24 Hours (Table) 10/12/21 10/13/21 10/13/21 Range/Units 18:03 00:13 05:26 RBC (3.80-5.40) m/uL Hgb (11.4-16.0) gm/dL Hct (34.0-46.0) % MCV (80.0-100.0) fL Lymphocytes # (1.0-4.8) k/uL BUN (7-17) mg/dL Creatinine (0.52-1.04) mg/dL Glucose (74-99) mg/dL POC Glucose (mg/dL) 105 H 114 H 113 H (75-99) mg/dL ALT (4-34) U/L Total Protein (6.3-8.2) g/dL Albumin (3.5-5.0) g/dL 10/13/21 10/13/21 10/13/21 Range/Units 05:45 05:45 11:24 RBC 2.31 L (3.80-5.40) m/uL Hgb 7.4 L (11.4-16.0) gm/dL Hct 23.4 L (34.0-46.0) % MCV 101.3 H (80.0-100.0) fL Lymphocytes # 0.9 L (1.0-4.8) k/uL BUN 19 H (7-17) mg/dL Creatinine 0.42 L (0.52-1.04) mg/dL Glucose 102 H (74-99) mg/dL POC Glucose (mg/dL) 112 H (75-99) mg/dL ALT 35 H (4-34) U/L Total Protein 5.6 L (6.3-8.2) g/dL Albumin 2.6 L (3.5-5.0) g/dL Microbiology - Last 24 Hours (Table) 10/13/21 03:20 Sputum Culture - Preliminary Sputum Assessment and Plan (1) Pneumonia Current Visit: Yes Status: Acute Code(s): J18.9 - PNEUMONIA, UNSPECIFIED ORGANISM SNOMED Code(s): 952114134 (2) Allergy to multiple antibiotics Current Visit: Yes Status: Acute Code(s): Z88.1 - ALLERGY STATUS TO OTHER ANTIBIOTIC AGENTS SNOMED Code(s): 478545425 (3) COVID-19 Current Visit: Yes Status: Acute Code(s): U07.1 - COVID-19 SNOMED Code(s): 375066787 Plan: 1-patient with stage III sacral pressure ulcer as well as states 3 pressure ulcer to the upper back area, local wound care with the medahoney followed by moist dressing and keep the area off the pressure, left elbow pressure ulcer stage II with no cellulitis local wound care with a dry with Aquacel silver tati ssing and keep the area off the pressure 2-Patient with acute respiratory failure which is multifactorial in this patient who did have a covid19 pneumonia and a concern for possible secondary bacterial pneumonia , patient did have new fever on 10/03/2021 with concern for possible PICC line infection blood cultures were obtained from the PICC line has been negative , patient is currently doing well off antibiotics 3-patient sputum did grow Radha, could be colonizer versus oropharyngeal candidiasis, however the patient has completed her course of Eraxis, and monitor clinical course closely Time with Patient: Less than 30
[2021-10-14 02:41] LABS: Glucose,Whole Blood 117 mg/dL (75-99)
[2021-10-14] MEDS: LORazepam 2 MG/ML INJ IV SCH ×5 (03:00→18:10)
[2021-10-14] MEDS: HYDROmorphone 1 MG/ML 1 ML SYRINGE IVP SCH ×8 (03:00→22:12)
[2021-10-14] MEDS: INSULIN ASPART (NovoLOG) 100 UNIT/ML VIAL SQ SCH ×2 (03:00→05:59)
[2021-10-14 05:59] LABS: Glucose,Whole Blood 112 mg/dL (75-99)
[2021-10-14 08:41] LABS: Basophils % (A) 0 %; Eosinophils # (A) 0.1 k/uL (0-0.7); Eosinophils % (A) 2 %; HCT 28.2 % (34.0-46.0); Hypochromasia Slight; Lymphocytes # (A) 0.9 k/uL (1.0-4.8); Lymphocytes % (A) 12 %; MCH 31.7 pg (25.0-35.0); MCHC 31.5 g/dL (31.0-37.0); MCV 100.5 fL (80.0-100.0); Macrocytosis Slight; Mean Platelet Volume 7.5; Monocytes # (A) 0.3 k/uL (0-1.0); Monocytes % (A) 4 %; Neutrophils # (A) 6.1 k/uL (1.3-7.7); Neutrophils % (A) 80 %; Platelet Count 429 k/uL (150-450); RBC 2.81 m/uL (3.80-5.40); RDW 15.6 % (11.5-15.5); WBC 7.7 k/uL (3.8-10.6)
[2021-10-14 08:43] LABS: HGB 8.9 gm/dL (11.4-16.0)
[2021-10-14] MEDS: QUEtiapine 100 MG TAB PO SCH ×2 (08:43→19:46)
[2021-10-14] MEDS: PANTOPRAZOLE 40 MG/10 ML VIAL IV SCH (08:43)
[2021-10-14] MEDS: CHOLECALCIFEROL 125 MCG (5000 IU) TABLET PO SCH (08:43)
[2021-10-14] MEDS: APIXABAN 5 MG TAB PO SCH ×2 (08:44→19:46)
[2021-10-14] MEDS: AMIODARONE 200 MG TAB PO SCH (08:44)
[2021-10-14] MEDS: carBAMazepine 200 MG TAB PO SCH ×3 (08:44→19:46)
[2021-10-14 08:51] LABS: ALT 40 U/L (4-34); AST 38 U/L (14-36); African American GFR (CKD) >90 (>60 ml/min/1.73 sqM); Alkaline Phosphatase 86 U/L (38-126); Anion Gap 5 mmol/L; Blood Urea Nitrogen 20 mg/dL (7-17); Calcium 9.4 mg/dL (8.4-10.2); Carbon Dioxide 32 mmol/L (22-30); Chloride 101 mmol/L (98-107); Glucose 119 mg/dL (74-99); Non-African American GFR(CKD) >90 (>60 ml/min/1.73 sqM); Potassium 4.2 mmol/L (3.5-5.1); Sodium 138 mmol/L (137-145); Total Bilirubin 0.4 mg/dL (0.2-1.3); Total Protein 6.5 g/dL (6.3-8.2)
--- NOTE | 2021-10-14 09:30 | P.PN ---
Subjective Progress Note Date: 10/14/21 Principal diagnosis: Respiratory failure. Reevaluated today on 09/18/21, patient remains in the ICU, intubated and mechanically ventilated. Patient is not making any significant neurological improvement. She has been off sedation for few days, yesterday we started the patient only on Precedex, and that's mostly to keep her synchronous with the ventilator. Again her mental status is basically about the same, and she is not showing much improvement. She opens eyes slightly to deep painful stimuli, but no purposeful movement and no responses to verbal stimuli. She is on assist control rate of 32 tidal volume 325 FiO2 was 50% and PEEP was 8 however I cut down her FiO2 to 45%. Patient is receiving enteral feeding, vital AF at 34 mL per hour. ABG today showed a pO2 of 107 pCO2 44 pH of 7.46. Basic metabolic profile is normal WBC count is 7.6 hemoglobin is 9.5. No significant metabolic abnormality to explain her encephalopathy at this point. Patient is still being followed by neurology on the case. Patient is still being treated for coronary virus infection, and UTI on admission secondary to E. coli. 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 No acute process was noted. Patient remains on seizure medications as per neurology including Keppra and Tegretol. EEG showed slowing/moderate degree of slowing suggestive of generalized cerebral dysfunction. This is seen with toxic metabolic encephalopathy. Reevaluated today on 09/19/21, patient remains in the ICU, intubated and mechanically ventilated, she is on assist control rate of 32 tidal volume of 325 FiO2 45% and PEEP of 8. Patient had to be placed on propofol yesterday at 50 mcg/kg/m, she is on IV fluid at 50 mL per hour. ABG showed a pO2 of 78 pCO2 of 47 pH of 7.44. Chest x-ray is basically about, no change. WBC count is 9.2 hemoglobin is 10.3. Electrolytes are normal. Again the patient had to be placed back on propofol because she was getting agitated, restless, and not syn chronous with the ventilator yesterday. Remains on propofol today, and patient is not responding to any stimuli. Hence I'm keeping her on propofol, I believe the patient will eventually require tracheostomy and PEG tube placement unless CODE STATUS is changed to comfort care. Chest x-ray is basically showing no significant abnormalities. She does have mild pulmonary vascular congestion. Reevaluated today on 09/20/21, patient remains in the ICU, intubated and mechanically ventilated. She is on assist control rate of 32 tidal volume 325 FiO2 is 45%, PEEP is at 8. Patient is back on propofol, intermittently has been receiving Dilaudid, patient becomes at times agitated, and asynchronous with the ventilator, early in the week, I was able to hold sedation for a number of days, however the patient remained unresponsive to verbal stimuli, and apparently she had significant toxic metabolic encephalopathy. CT of the brain was nondiagnostic. Patient was seen by neurology on consultation, and still believe that this is a occipital metabolic encephalopathy picture. Patient is on propofol now at 50 mcg/kg/m, not requiring any other sedatives or narcotics. Patient has been feeding/enteral feeding vital AF at 34 mL per hour. ABG today showed a pO2 of 101 pCO2 47 pH of 7.44. Chest x-ray continues to show retrocardiac density likely atelectasis, otherwise no significant findings on the chest x-ray Progress note dated 09/21/2021. This is a 51-year-old female, who was admitted to the hospital on September 10. She came in with mental status changes, sepsis, and hypernatremia. She came to the intensive care unit on September 10, and was intubated for respiratory failure on 09/11/2021. The patient did test positive for coronavirus. She remains on mechanical ventilator. The patient is on the volume assist control mode, rate 32, tidal volume 325, FiO2 45%, and PEEP of 8. Blood gases show pO2 of 91, pCO2 49, and pH is 7.45. The patient's getting half-normal saline at 50 mL an hour, propofol at 50 mcg/kg/m, and vital AF at 34 mL an hour, which is goal. White count 10.2, hemoglobin 9.7, hematocrit 30.4, and platelet count was normal. Sodium 139, potassium 3.5, chlorides 104, CO2 32, anion gap 3, BUN 34, and creatinine 0.65. Microbiologic studies show evidence of Escherichia coli in the urine from September 10, and presumptive staph aureus in the sputum from August 30 0. The chest x-ray shows left lower lobe atelectasis and/or infiltrates. The patient is currently on antifungals, and aztreonam. The infectious disease doctor is currently on the case. Progress note dated 09/22/2021. 51-year-old female who was admitted to the hospital on 09/10/2021. She came in with mental status changes, sepsis, and hypernatremia. She came to the intensive care unit on September 10, and was intubated for respiratory failure on 09/11/2021. She did test positive for coronavirus. She remains on the mechanical ventilator. The plan is for a tracheostomy and PEG tube placement today by one of the surgeons. The patient also had a right radial arterial line placed by our team. Currently, she is on the volume assist control mode, rate 32, tidal volume 325, FiO2 45%, PEEP of 8. Arterial blood gases show pO2 of 88, pCO2 46, and a pH is 7.48. The patient is on propofol at 40 mcg/kg/m, saline at 20 mL an hour, half-normal saline at 50 mL an hour, and vital, at 46 mL an hour, which is goal. Obviously, tube feeds on hold for anticipated surgery today. White count 9.3, hemoglobin 8.8, hematocrit 27.3, and platelet count 269,000. Sodium 139, potassium 3.4, chlorides 104, CO2 33, anion gap 2, BUN 26, and creatinine 0.54. AST 500, ALT 166. An ultrasound the right upper quadrant will be ordered. Chest x-ray shows persistent left lower lobe atelectasis and/or inf iltrate. Progress note dated 09/23/2021. This is a 51-year-old female, again seen in room 254. She's now been in the hospital for 13 days. She was admitted on 09/10/2021. She came in with mental status changes, and sepsis. She came to the intensive care unit on September 10, and was intubated respiratory failure on 09/11/2021. She did test positive for coronavirus. She remains on the mechanical ventilator. The patient was to have a tracheostomy and PEG tube placement performed. It was to be done yesterday but for some reason did not take place. She remains on the volume assist control, rate 32, tidal volume 325, FiO2 45%, and PEEP of 8. Blood gases show pO2 80, pCO2 39, pH is 7.48. The patient's getting saline at 20 mL an hour, half-normal saline at 50 mL an hour, and tube feeds are currently on hold. White count 10, hemoglobin 9.3, hematocrit 29.2, and platelet count 341,000. Sodium 139, potassium 3.6, chlorides 106, CO2 27, anion gap 6, BUN 23, and creatinine 0.59. Albumin is 2.4. Microbiology from September 10, shows a urine that was positive for an E. coli, and a sputum from September 17, it is positive for Staphylococcus aureus. The patient is currently on vancomycin and Eraxis. Progress note dated 09/24/2021. 51-year-old female, again seen in room 254. The patient underwent tracheostomy and PEG tube placement yesterday, on September 23. The patient is now been in the hospital for 14 days. The patient was admitted on 09/10/2021. She did test positive for coronavirus. The patient was intubated on 09/11/2021, for respiratory failure. Currently, she is on volume assist control, rate 32, tidal volume 325, FiO2 40%, and PEEP of 8. Arterial blood gases show pO2 of 79, pCO2 39, pH is 7.45. The patient's getting half-normal saline at 50 mL an hour. She is on propofol at 40 mcg/kg/m. Tube feedings are still on hold. She's getting an antifungal, as well as Levaquin. Labs include a white count 9.1, hemoglobin 9.5, hematocrit 29.5 and platelet count which is normal. Sodium 133, potassium 3.4, chlorides 101, CO2 26, anion gap 6, BUN 19, and creatinine 0.53. AST is 229, and ALTs 159. Microbiologic studies are positive for a urine sample from September 10, for E. coli, and methicillin sensitive staph aureus in the sputum from September 17. Chest x-ray shows patchy bibasilar and bilateral infiltrates. Progress note dated 09/25/2021. 51-year-old female again seen in room 254. She underwent tracheostomy and PEG tube placement on September 23. The patient has been in the hospital now for 15 days. She remains on the ventilator. She is on the volume assist control mode, rate 32, tidal volume 325, FiO2 40%, PEEP of 8. Blood gases show pO2 of 95, pCO2 51, and pH is 7.44. The patient's getting half-normal saline at 50 mL an hour, and currently, propofol is off. She is also on vital 1.2 at 46 mL an hour, which is goal. She remains on Levaquin for a sputum positive for methicillin sensitive staph aureus. Also, the patient is on an antifungal as per infectious diseases. Because of her poor mental status, we will repeat a computed tomography scan of the brain with contrast. Her hoping to be able to get this patient to a long-term acute care facility or specialized nursing facility. White count 9.9, hemoglobin 9, hematocrit 26.8 and platelet count 333,000. Sodium 137, potassium 3.9, chlorides 102, CO2 31, anion gap 4, BUN 18, creatinine 0.53. Chest x-ray shows a tracheostomy tube in the midline. There is diffuse bilateral infiltrates, with worsening in the retrocardiac area. Progress note dated 09/26/2021. This is a 51-year-old female again seen in room 254. She underwent tracheostomy and PEG tube placement on September 23. She's now been in the hospital for 16 days. She remains on the ventilator. The patient was admitted on 09/10/2021. She did test positive for coronavirus. The patient was intubated on 09/11/2021, for respiratory failure. She remains on the ventilator. She is on the volume assist control mode, rate 32, tidal volume 325, FiO2 40%, to be reduced down to 35%, and PEEP of 8. Blood gases show pO2 of 111, pCO2 42, and a pH is 7.52. The patient is receiving saline at 20 mL an hour, half-normal saline at 50 mL an hour, and vital AF at 57 mL an hour, which is goal. The patient remains on Levaquin and Eraxis. The patient's chest x-ray is unchanged. Recent repeat brain CT was negative. White count 8.7, hemoglobin 8.8, hematocrit 27.6, and platelet count 330,000. Sodium 138, potassium 3.6, chlorides 102, CO2 34, anion gap 2, BUN 22, creatinine 0.38. Progress note dated 09/27/2021. 51-year-old female, again seen in room 254. The patient underwent tracheostomy and PEG tube placement, on 09/23/2021. She's now been in the hospital for 17 days. She remains on the ventilator. She was initially admitted back on 09/10/2021. She did test positive for coronavirus. She was intubated on 09/11/2021, for worsening respiratory failure. She remains on the mechanical ventilator. The patient is on the volume assist control mode, rate 32, tidal volume 325, FiO2 35%, and PEEP of 8. Blood gases show pO2 of 82, pCO2 40, and pH is 7.49. She's getting saline at 20 mL an hour, half-normal saline at 50 mL an hour, and vital AF at 57 and hour, which is goal. We are going to DC her Decadron. She been on it since the . White count 8.3, hemoglobin 9.5, hematocrit 30, and platelet count 356,000. Sodium 138, potassium 4, chlorides 103, CO2 31, anion gap 4, BUN 22, creatinine 0.45. Microbiology shows a staph aureus from September 17, and the sputum. It's a methicillin sensitive staph aureus. The patient remains on Eraxis and Levaquin. Chest x-ray is essentially unchanged. Reevaluated today on 10/09/2021, patient remains in the ICU, remains on ventilatory support, she is on pressure control of 22 inspiratory time of 0.9 FiO2 40% PEEP of 5. ABG today showed a pO2 of 131 pCO2 of 31 pH of 7.52. Patient is not requiring any pressors, she is not requiring any drips, no sedation is needed, she is still receiving tube feeding vital HPI 22 mL per hour. Patient had a relatively uneventful night, and we plan to place the patient back on a mode of weaning, and I plan to place her back either on a T piece orotracheal collar today. No ABG was done today. No chest x-ray was done. Chest x-ray from yesterday showed basically no change. Tracheostomy is intact. Reevaluated today on 10/10/2021, patient remains on TP, over the last 24 hours, tolerating weaning very well, seems to be quite agitated, and would like to go home. Patient is getting more agitated with the t piece itself, although she seems to be very comfortable and her O2 saturation is high in the 90s. Went ahead and recommended decannulation of the trach, and I removed the tracheostomy at bedside, and the sutures around the tracheostomy were also removed. Patient felt much better and she was switched to a nasal cannula. WBC count today is 6.6 hemoglobin 8.1 electrodes. Normal except for low potassium be corrected accordingly. Went ahead and discontinued his Eraxis, patient is on vancomycin, and hopefully that will be discontinued by infectious disease today on rounds. No chest x-ray was done today. But I reviewed the chest x-ray from yesterday Reevaluated today on 10/11/2021, patient remains in the ICU, yesterday I D cannulated the patient, however few hours later, the patient developed left lower lobe atelectasis/collapse, and she was having hard time breathing, she could not clear any of her secretions. Patient was very weak, and she had a very ineffective cough. I was notified about this patient by the nurse and by respiratory therapy, I recommended that the patient gets her trach placed back again. And this time she is to have a size 6 a size 7 Shiley tube placed by respiratory therapy. Indeed the patient had a size 6 placed, placed back on mechanical ventilation overnight, since she was agitated we added Precedex overnight. Remains on the vent overnight, and she is on Precedex. Her ABG today showed a pO2 of 105, pCO2 34 pH of 7.51. This was on assist control mode of mechanical ventilation, she was on rate of 28 tidal volume 400 FiO2 40% and PEEP of 8. Then I recommended that we give the patient today another trial on trach collar but she is to be suctioned if she develops any shortness of breath or she develops worsening secretions. Patient remains on vital AF at 60 mL/h she was on a very low dose of norepinephrine at 0.02 which I have discontinued this morning. Chest x-ray is showing dramatic improvement in her left lower lobe atelectasis/collapse. But it is not fully completely resolved. Nonetheless the patient continues to have minimal atelectasis at the left base. WBC count today is 7 hemoglobin 7.2 electrolytes are normal renal profile is normal. Progress note dated 10/12/2021. The patient is again seen in room 254. I saw her last on September 27. The patient was admitted to the hospital on September 10. She came in with mental status changes, seizures, and acute kidney injury, as well as coronavirus infection. The patient came to the intensive care unit on 09/11/2021, and was intubated on the same day. The patient had a tracheostomy and PEG tube placed on 09/23/2021. The patient remains on the ventilator. She has had some weaning with trach collar. Currently, she is on the volume assist control, rate 28, tid al volume 400, FiO2 40%, and PEEP of 8. Blood gases show a PaO2 of 166, pCO2 37, and pH is 7.47. That was on 50% FiO2. The patient's on saline at 100 mL an hour, and Precedex at 0.2 mcg/kg/h. We are going to give the patient Ativan, Seroquel, and Dilaudid. We will discontinue the Precedex. We'll make sure the fluids were cut back, and give the patient Lasix 40 mg IV push. The only lab data from today include a glucose of 115, and blood gases as mentioned. Chest x-ray shows some mild interstitial changes, and a retrocardiac and left basilar opacity. Microbiology is reviewed. And there is no recent culture data of significance. Progress note dated 10/13/2021. Patient is again seen in room 254. The patient is been in the hospital now for 33 days. The patient was admitted to the hospital on September 10. She came in with mental status changes, acute kidney injury, and seizures. She also tested positive for coronavirus infection. She came to the intensive care unit on September 11, and was intubated on 09/11/2021. The patient had a tracheostomy and PEG tube placed on 09/23/2021. Currently, she is on volume assist control, with a rate of 28, tidal volume 400, FiO2 40%, and PEEP of 8. No blood gases were done today. The patient's on saline at 20 mL an hour, and vital AF at 60 mL an hour, which is goal. Yesterday, she spent from 8:30 AM to noon, on CPAP, and from noon, to 6:30 PM on trach collar. We will attempt to do the same thing today. Laboratory data includes a white count 6.1, hemoglobin 7.4, hematocrit 23.4, and platelet count 348,000. Sodium, potassium, chloride, CO2, all normal. Anion gap is normal. BUN 19, creatinine 0.42. Albumin is 2.6. Chest x-ray shows diffuse bilateral infiltrates, and is unchanged. Progress note dated 10/14/2021. Patient is again seen in room 254. The patient has not been here in the hospital for 34 days. She was admitted back on September 10. She came in with mental status changes, acute kidney injury, and seizures. She also tested positive for coronavirus infection. She came to the intensive care unit on September 11, and was intubated on the same day. She had a tracheostomy and PEG tube placement on 09/23/2021. Currently, she is on T-piece, at 50%. She's been on that since 11:00 AM yesterday. In addition, the patient's on vital AF at 60 mL an hour. She's getting saline at 20 mL an hour. Today's laboratory includes a white count 7.7, hemoglobin 8.9, hematocrit 28.2, and platelet count 429,000. Sodium 138, potassium 4.2, chlorides 101, CO2 32, anion gap 5, BUN 20, creatinine 0.4. No chest x-ray today. Objective - Vital Signs Vital signs: Vital Signs Temp 99.3 F 10/14/21 08:00 Pulse 99 10/14/21 09:00 Resp 26 H 10/14/21 09:00 BP 119/68 10/14/21 09:00 Pulse Ox 96 10/14/21 09:00 Intake & Output 10/13/21 10/14/21 10/14/21 18:59 06:59 18:59 Intake Total 1090 1050 390 Output Total 855 1165 665 Balance 235 -115 -275 Weight 59.5 kg Intake: IV 220 240 60 Sodium Chloride 0.9% 1, 220 240 60 000 ml @ 20 mls/hr IV . Q24H [facility] Rx#:[id number] Tube Feeding 720 720 240 Other 150 90 90 Output: Urine 855 1165 665 Other: Voiding Method Indwelling Catheter Indwelling Catheter ABP, PAP, CO, CI - Last Documented Arterial Blood Pressure 123/58 - Exam No acute distress, currently off of all sedation, with a midline tracheostomy, currently on T-piece. HEENT examination is grossly unremarkable. Neck supple. Full range of motion. No adenopathy thyromegaly or neck vein distention. Midline tracheostomy is noted. Cardiovascular examination reveals regular rhythm rate. S1-S2 normal. No S3 or S4. No discernible murmur noted. Heart rate 99 bpm. Heart sounds are distant. Lungs reveal bilateral expiratory rhonchi and wheezes. No crackles. Breath sounds are equal bilaterally. Saturations are 96%. Abdomen soft, without bowel sounds. No masses. PEG tube is noted. Extremities are intact. No cyanosis or clubbing. Trace edema is noted. Skin is without rash or lesion. Neurologic examination is much improved. The patient's awake and alert. - Labs CBC & Chem 7: 10/14/21 08:23 10/14/21 08:23 Labs: Abnormal Lab Results - Last 24 Hours (Table) 10/13/21 10/13/21 10/14/21 Range/Units 11:24 17:43 00:36 RBC (3.80-5.40) m/uL Hgb (11.4-16.0) gm/dL Hct (34.0-46.0) % MCV (80.0-100.0) fL RDW (11.5-15.5) % Lymphocytes # (1.0-4.8) k/uL Carbon Dioxide (22-30) mmol/L BUN (7-17) mg/dL Creatinine (0.52-1.04) mg/dL Glucose (74-99) mg/dL POC Glucose (mg/dL) 112 H 112 H 117 H (75-99) mg/dL AST (14-36) U/L ALT (4-34) U/L Albumin (3.5-5.0) g/dL 10/14/21 10/14/21 10/14/21 Range/Units 05:58 08:23 08:23 RBC 2.81 L (3.80-5.40) m/uL Hgb 8.9 L D (11.4-16.0) gm/dL Hct 28.2 L (34.0-46.0) % MCV 100.5 H (80.0-100.0) fL RDW 15.6 H (11.5-15.5) % Lymphocytes # 0.9 L (1.0-4.8) k/uL Carbon Dioxide 32 H (22-30) mmol/L BUN 20 H (7-17) mg/dL Creatinine 0.40 L (0.52-1.04) mg/dL Glucose 119 H (74-99) mg/dL POC Glucose (mg/dL) 112 H (75-99) mg/dL AST 38 H (14-36) U/L ALT 40 H (4-34) U/L Albumin 3.0 L (3.5-5.0) g/dL Microbiology - Last 24 Hours (Table) 10/13/21 03:20 Gram Stain - Preliminary Sputum Sputum Culture - Preliminary Assessment and Plan Assessment: Acute hypoxemic respiratory failure secondary to coronavirus associated pneumonia, status post intubation and mechanical ventilation on 09/11/2021. Status post tracheostomy and PEG tube placement on 09/23/2021. Acute mental status changes, secondary to toxic/metabolic encephalopathy, much improved. Methicillin sensitive staph aureus pneumonia, left lower lobe, treated. Dehydration, on admission, resolved. History of seizure disorder. Prior history of pulmonary embolism. Paroxysmal atrial fibrillation. Cardiomyopathy with ejection fraction of 30-35%. Status post pacemaker implantation. 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 Hypothyroidism. CAD. History of CVA in 2007. History of recurrent E. coli urinary tract infections, treated. History of psoriasis. History of sacral/coccygeal decubitus ulcer. Plan: Plan dated 09/21/2021. Because of the patient's overall poor status, and the fact that she still is a full code, surgery will be consulted for possible tracheostomy and PEG tube placement. We will continue to follow make recommendations where appropriate. Again, prognosis is very poor. She remains on mechanical ventilator. She remains on appropriate antibiotics. Infectious diseases is following. We will continue to follow make recommendations where appropriate. Plan dated 09/22/2021. The patient is going to hopefully have a tracheostomy and PEG tube placement today. The patient remains on propofol at 40 mcg/kg/m. We did replace the arterial line. The previous arterial line was poorly functional. She had a right radial arterial line placed today by our team. A previous urine culture from September 10 showed Escherichia coli. Sputum from September 17 showed Radha, and presumptive Staphylococcus aureus. The patient remains on an antifungal, and vancomycin as per infectious diseases. Mariam follow and make recommendations where appropriate. Prognosis is certainly guarded. Plan dated 09/23/2021. The patient had methicillin sensitive staph aureus in the sputum and is currently on vancomycin. That can be changed to something other than vancomycin. The patient should have a tracheostomy and PEG tube placement today. It was to be done yesterday. The patient is currently off all sedation. Tube feedings on hold. Oxygenation and ventilation are excellent. We will continue to follow make recommendations where appropriate. Overall prognosis remains very guarded. Most recent brain CT shows old infarcts, with nothing acute and no major change. Plan dated 09/24/2021. The patient underwent tracheostomy and PEG tube placement yesterday, 09/23/2021. She remains on the mechanical ventilator. Labs, x-rays, and medications are all reviewed. The staph. in the sputum, was methicillin sensitive. Hence, vancomycin was discontinued, and she was started on Levaquin. She remains on the antifungal. We will continue to follow make recommendations where appropriate. We'll attempt to wean her off the propofol. Additional recommendations and suggestions are coming. Prognosis is guarded. Plan dated 09/25/2021. We'll attempt another CAT scan of the brain with contrast, because of the patient's poor mental status. Two prior CT scans did not show anything acute. The patient remains on Levaquin, and Eraxis. The patient remains off of all. We will continue to follow make recommendations where appropriate. Overall prognosis remains guarded. Plan dated 09/26/2021. Repeat brain CT with contrast, was negative for anything acute. The patient's mental status remains poor. The patient is currently off all sedatives. The patient remains on antibiotic and antifungal as above. The sputum was positive for methicillin sensitive staph aureus. Fungal cultures are currently negative. The patient's chest x-ray is unchanged. The FiO2 was reduced on the 35%. Labs, x-rays, and medications are all reviewed. We will continue to follow and make recommendations where appropriate. Prognosis is certainly guarded. Plan dated 09/27/2021. The patient's repeat brain CT with contrast, was negative for anything acute. The patient's overall mental status remains very poor. The patient will have a daily interruption of sedation, and a spontaneous breathing trial today. We will DC the Decadron, as the patient has been on it since September 12. The patient is currently on Levaquin for a methicillin sensitive staph aureus that was discovered in the sputum. He also remains on the antifungal, Eraxis. We will continue to follow make recommendations where appropriate. The patient's labs, x-rays, and medications are all reviewed. Prognosis is guarded. Possible discharge to a long-term acute care facility, or a specialized nursing facility. Plan dated 10/12/2021. The patient's neurologic status is much improved. He is awake and alert. She has had some weaning along the way. Today, we will attempt to get her off of Precedex, by adding some Ativan, Seroquel, and when necessary Dilaudid. In addition, IV fluids are made at KVO. We will give the patient Lasix 40 mg IV push. Additional recommendations and suggestions are forthcoming. Prognosis is guarded. We also place the patient on some pressure support and CPAP, and will transition her to trach collar. Additional recommendations and suggestions are forthcoming. We will continue to follow make recommendations where appropriate. Prognosis is very guarded. Plan dated 10/13/2021. The patient did well yesterday on her eating, and spent about 6-1/2 hours on trach collar. The patient's currently not on any sedation whatsoever. She does get Ativan, and Seroquel, and when necessary Dilaudid. Yesterday, she was on dexmedetomidine. Labs, x-rays, and medications all all reviewed. The patient will again have additional weaning today. Prognosis is guarded. We will continue to follow her and make recommendations where appropriate. Hopefully, we can get her to a long-term acute care facility. Plan dated 10/14/2021. Currently, the patient has been receiving oxygen at 50%. She has not been on the ventilator since 11:00 in the morning yesterday. She is getting her vital AF at 60 mL an hour. She's getting saline at 20 mL an hour. She is off all sedation. We will continue to follow make recommendations were appropriate. Prognosis is guarded. The plan is to hopefully get her transferred to a long- term acute care facility by the end of the week. Time with Patient: Greater than 30
[2021-10-14] MEDS: METOPROLOL TARTRATE 25 MG TAB PO SCH ×2 (10:18→19:46)
[2021-10-14] MEDS: MAGNESIUM SULFATE-D5W PMX 1 GM in DEXTROSE/WATER 1 100ML.BAG IVPB SCH ×2 (10:19→11:41)
[2021-10-14 11:24] LABS: Glucose,Whole Blood 158 mg/dL (75-99)
[2021-10-14] MEDS: SODIUM CHLORIDE 0.9% 1,000 ML IV SCH (12:04)
--- NOTE | 2021-10-14 12:48 | P.PN ---
<Godwin, - Last Filed: 10/14/21 12:42> Subjective Progress Note Date: 10/14/21 Principal diagnosis: Altered mental status Patient is a 51-year-old female presented to the emergency room with altered mental status, COVID-19 pneumonia, UTI, seizures and possible stroke. UTI and pneumonia have been treated, and sepsis resolved. 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 Patient has been in the hospital since September 10, 2021 and has had extensive evaluations and treatment. Patient has been followed by multiple consultants including intensive care/pulmonary, neurology, and surgical services. Hospitalists have been providing coverage from 09/10/2021 through 10/05/2021. Patient continues to require mechanical ventilation. Patient is status post PEG tube placement and tracheotomy placement. 10/06/21 Patient was seen and examined at bedside in the ICU. Continues to require mechanical ventilation via tracheostomy. FiO2 40%, PEEP 5, oxygen saturation 96%, blood pressure 149/82. She is alert, responds to name, and follows simple commands. Denies any acute symptoms, unable to speak, replies by shaking her head yes or no. Left-sided paralysis, right-sided weakness able to grasp fingers and wiggle toes on the right. White blood cell count 5.6, kidney fun ction improved the BUN 15, creatinine 0.3, liver enzymes continue to be elevated but improving. Plan was to discharge patient to [facility], insurance denied, awaiting clearance from social work. 10/07/21 Patient was seen and examined at bedside in ICU. Patient is resting comfortably, in no acute distress. Continues to require mechanical ventilation via tracheostomy. FiO2 40%, PEEP 5, oxygen saturation 95%, blood pressure 119/74. Patient is alert and oriented to self, able to follow simple commands. Continued left-sided paralysis, right-sided weakness. Potassium 3.3, was treated according to protocol. Kidney function remains stable, white count 7.1 today. Still waiting for insurance appeal for transfer to long-term acute care. 10/08/21 patient was seen and examined in ICU. Was up in the chair via rebecca lift, in mild distress. Oxygen saturation was declining to 70% while on trach collar. Patient was trying to say that she can't breathe and she needs help. Nurse and respiratory therapist assisted patient back on mechanical ventilation at previous settings, with improvement of oxygen saturation. Patient was alert and oriented to self.continued right-sided weakness and left-sided paralysis.potassium improved to 3.5.still awaiting insurance appeal for transfer to long-term acute care 10/09/2021 Patient was seen and examined at bedside in ICU. Resting comfortably in bed, in no acute distress. Alert and oriented to self. She was trying to say that she wants to go home. Continued right-sided weakness and left-sided paralysis. Continues to require mechanical ventilation via tracheostomy. FiO2 40% PEEP of 5. ABG was stable. Tolerating tube feeding via PEG tube. Awaiting insurance appeal for transfer to long-term [facility]. Hospitalist coverage 10/10/21-10/12/21 10/13/2021 Patient seen and examined at bedside in ICU. Patient lethargic, not answering questions, arises to touch but then falls back asleep. Spoke with nurse regarding patient's status over the weekend, esthetician to try to decannulate the patient, became hypoxic and needed trach replaced. Today patient is on CPAP via tracheostomy, rate of 28, tidal volume 400, FiO2 40%, and PEEP of 8. We'll continue following pulmonary's recommendations. Blood Pressure was decreased on exam, already being treated with fluid bolus. Will follow esthetician recommendations for pressure control. Still waiting for insurance clearance for long-term acute care transfer. 10/14/21 Patient was seen and examined at bedside in ICU. Was resting in bed, no acute distress. Awoke to name and touch, oriented to self, followed simple commands. She was trying to verbalize that she wants to home. Continued right-sided weakness, left-sided paralysis. She was weaned to a t-piece at 50%, saturating well. Has been off the ventilator more than 24 hours. We will continue to follow pulmonary recommendations. Objective - Vital Signs Vital signs: Vital Signs Temp 99.3 F 10/14/21 08:00 Pulse 88 10/14/21 11:00 Resp 25 H 10/14/21 11:00 BP 93/45 10/14/21 11:00 Pulse Ox 97 10/14/21 11:00 Intake & Output 10/13/21 10/14/21 10/14/21 18:59 06:59 18:59 Intake Total 1090 1050 750 Output Total 855 1165 785 Balance 235 -115 -35 Weight 59.5 kg Intake: IV 220 240 100 Sodium Chloride 0.9% 1, 220 240 100 000 ml @ 20 mls/hr IV . Q24H ADDIE Rx#:[id number] Intake, IV Titration 200 Amount Magnesium Sulfate-D5w Pmx 200 1 gm In Dextrose/Water 1 100ml.bag @ 100 mls/hr IVPB Q1H ADDIE Rx#: [id number] Tube Feeding 720 720 360 Other 150 90 90 Output: Urine 855 1165 785 Other: Voiding Method Indwelling Catheter Indwelling Catheter Indwelling Catheter ABP, PAP, CO, CI - Last Documented Arterial Blood Pressure 123/58 - Constitutional General appearance: Present: no acute distress - EENT Eyes: Present: EOMI, PERRLA ENT: Present: normal oropharynx Ears: bilateral: normal - Neck Details: tracheostomy in place - Respiratory Respiratory: bilateral: diminished, rhonchi - Cardiovascular Heart rate: 90 Rhythm: regular Heart sounds: normal: S1, S2 - Peripheral pulses radial pulse Peripheral Pulses: bilateral: Normal - Gastrointestinal Gastrointestinal Comment(s): peg tube in place General gastrointestinal: Present: normal bowel sounds, soft - Integumentary Integumentary: Present: normal, pale - Neurologic Neurologic: Present: focal deficits - Musculoskeletal Musculoskeletal: Present: right sided weakness, left sided weakness (paralysis) - Psychiatric Psychiatric Comment(s): oriented to self, arose to touch, follows commands - Allied health notes Allied health notes reviewed: nursing - Labs CBC & Chem 7: 10/14/21 08:23 10/14/21 08:23 Labs: Abnormal Lab Results - Last 24 Hours (Table) 10/13/21 10/14/21 10/14/21 Range/Units 17:43 00:36 05:58 RBC (3.80-5.40) m/uL Hgb (11.4-16.0) gm/dL Hct (34.0-46.0) % MCV (80.0-100.0) fL RDW (11.5-15.5) % Lymphocytes # (1.0-4.8) k/uL Carbon Dioxide (22-30) mmol/L BUN (7-17) mg/dL Creatinine (0.52-1.04) mg/dL Glucose (74-99) mg/dL POC Glucose (mg/dL) 112 H 117 H 112 H (75-99) mg/dL AST (14-36) U/L ALT (4-34) U/L Albumin (3.5-5.0) g/dL 10/14/21 10/14/21 10/14/21 Range/Units 08:23 08:23 11:22 RBC 2.81 L (3.80-5.40) m/uL Hgb 8.9 L D (11.4-16.0) gm/dL Hct 28.2 L (34.0-46.0) % MCV 100.5 H (80.0-100.0) fL RDW 15.6 H (11.5-15.5) % Lymphocytes # 0.9 L (1.0-4.8) k/uL Carbon Dioxide 32 H (22-30) mmol/L BUN 20 H (7-17) mg/dL Creatinine 0.40 L (0.52-1.04) mg/dL Glucose 119 H (74-99) mg/dL POC Glucose (mg/dL) 158 H (75-99) mg/dL AST 38 H (14-36) U/L ALT 40 H (4-34) U/L Albumin 3.0 L (3.5-5.0) g/dL Microbiology - Last 24 Hours (Table) 10/13/21 03:20 Gram Stain - Preliminary Sputum Sputum Culture - Preliminary Assessment and Plan Assessment: Altered mental status secondary to metabolic encephalopathy, ruled out intercranial lesions Acute hypoxic respiratory failure secondary to COVID-19 pneumonia, still requiring tracheostomy and CPAP Status post tracheostomy and PEG tube placement Sepsis secondary to UTI and COVID-19 pneumonia, resolved with treatment Hypotensive, was requiring pressure support Breakthrough seizure, history of previous seizures Unstageable sacral pressure ulcer Cardiomyopathy, EF of 30-35% Acute kidney injury, improved with treatment History of coronary artery disease history of pulmonary embolism History 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 left foot drop Status post permanent pacemaker History of glaucoma but surgical intervention Full code Plan: She continues to require tracheostomy, has been weaned from vent for greater than 24 hours, following pulmonary recommendations Antibiotic, vanco, and antifungal treatment for pneumonia per infectious disease recommendations Continue tube feedings, following dietitian recommendations Continue current medication regimen Continue monitoring her mental status for any changes Continue Wound care for unstageable sacral pressure wound Still waiting for insurance approval for transfer to long-term acute care Further recommendations to come based on patient's clinical course Time with Patient: Greater than 30 <Garth Auguste - Last Filed: 10/22/21 19:43> Subjective I have personally seen and examined the patient, reviewed the documentation and agree with the assessment and plan as written. Number of minutes spent on the visit: Greater than 15. Objective - Vital Signs Vital signs: Vital Signs Temp 98.0 F 10/22/21 12:17 Pulse 94 10/22/21 12:17 Resp 18 10/22/21 12:17 BP 114/64 10/22/21 12:17 Pulse Ox 95 10/22/21 19:36 Intake & Output 10/22/21 10/22/21 10/23/21 06:59 18:59 06:59 Intake Total 1200 960 Output Total 1 1 Balance 1199 959 Weight 55 kg Intake: Oral 0 Tube Feeding 1200 960 Output: Stool 1 1 Other: Voiding Method Diaper Bedpan Diaper # Voids 2 1 # Bowel Movements 1 ABP, PAP, CO, CI - Last Documented Arterial Blood Pressure 123/58 - Labs CBC & Chem 7: 10/22/21 06:37 10/22/21 06:37 Labs: Abnormal Lab Results - Last 24 Hours (Table) 10/21/21 10/22/21 10/22/21 Range/Units 23:49 06:37 06:37 RBC 2.92 L (4.10-5.20) X 10*6/uL Hgb 8.8 L (12.0-15.0) g/dL Hct 29.6 L (37.2-46.3) % MCV 101.4 H (80.0-97.0) fL MCHC 29.7 L (32.0-37.0) g/dL RDW 15.2 H (11.5-14.5) % Eosinophils # 0.45 H (0.04-0.35) X 10*3/uL Carbon Dioxide 27.6 H (20.0-27.5) mmol/L BUN 34.5 H (9.0-27.0) mg/dL Creatinine 0.5 L (0.6-1.5) mg/dL BUN/Creatinine Ratio 69.00 H (12.00-20.00) Ratio POC Glucose (mg/dL) 130 H (75-99) mg/dL 10/22/21 10/22/21 Range/Units 11:56 18:02 RBC (4.10-5.20) X 10*6/uL Hgb (12.0-15.0) g/dL Hct (37.2-46.3) % MCV (80.0-97.0) fL MCHC (32.0-37.0) g/dL RDW (11.5-14.5) % Eosinophils # (0.04-0.35) X 10*3/uL Carbon Dioxide (20.0-27.5) mmol/L BUN (9.0-27.0) mg/dL Creatinine (0.6-1.5) mg/dL BUN/Creatinine Ratio (12.00-20.00) Ratio POC Glucose (mg/dL) 137 H 108 H (75-99) mg/dL
--- NOTE | 2021-10-14 15:13 | P.PN ---
Subjective Progress Note Date: 10/14/21 CHIEF COMPLAINT: COVID-19 pneumonia HISTORY OF PRESENT ILLNESS: Patient remains in the ICU on mechanical ventilation. Patient currently on trach piece. Patient is status post tracheostomy and PEG tube placement on 09/23/21. Patient is tolerating tube feedings. PHYSICAL EXAM: VITAL SIGNS: Reviewed. GENERAL:no acute distress. HEENT: Moist buccal mucosa. Head is atraumatic, normocephalic. Tracheostomy site clean and intact. ABDOMEN: Soft. Nondistended. PEG tube site clean dry and intact. Bolster at 3cm NEUROLOGIC: awake ASSESSMENT: 1. Acute hypoxic respiratory failure secondary to COVID-19 pneumonia requiring mechanical ventilation 2. Severe protein calorie malnutrition PLAN: -Continue tube feedings -Continue ICU management -Continue supportive care Physician Artists' Model note has been reviewed by physician. Signing provider agrees with the documented findings, assessment, and plan of care. Objective - Vital Signs Vital signs: Vital Signs Temp 99 F 10/14/21 12:00 Pulse 89 10/14/21 14:00 Resp 14 10/14/21 14:00 BP 91/44 10/14/21 14:00 Pulse Ox 100 10/14/21 14:00 Intake & Output 10/13/21 10/14/21 10/14/21 18:59 06:59 18:59 Intake Total 1090 1050 1000 Output Total 855 1165 885 Balance 235 -115 115 Weight 59.5 kg Intake: IV 220 240 140 Sodium Chloride 0.9% 1, 220 240 140 000 ml @ 20 mls/hr IV . Q24H ADDIE Rx#:[id number] Intake, IV Titration 200 Amount Magnesium Sulfate-D5w Pmx 200 1 gm In Dextrose/Water 1 100ml.bag @ 100 mls/hr IVPB Q1H ADIDE Rx#: [id number] Tube Feeding 720 720 540 Other 150 90 120 Output: Urine 855 1165 885 Other: Voiding Method Indwelling Catheter Indwelling Catheter Indwelling Catheter ABP, PAP, CO, CI - Last Documented Arterial Blood Pressure 123/58 - Labs CBC & Chem 7: 10/14/21 08:23 10/14/21 08:23 Labs: Abnormal Lab Results - Last 24 Hours (Table) 10/13/21 10/14/21 10/14/21 Range/Units 17:43 00:36 05:58 RBC (3.80-5.40) m/uL Hgb (11.4-16.0) gm/dL Hct (34.0-46.0) % MCV (80.0-100.0) fL RDW (11.5-15.5) % Lymphocytes # (1.0-4.8) k/uL Carbon Dioxide (22-30) mmol/L BUN (7-17) mg/dL Creatinine (0.52-1.04) mg/dL Glucose (74-99) mg/dL POC Glucose (mg/dL) 112 H 117 H 112 H (75-99) mg/dL AST (14-36) U/L ALT (4-34) U/L Albumin (3.5-5.0) g/dL 10/14/21 10/14/21 10/14/21 Range/Units 08:23 08:23 11:22 RBC 2.81 L (3.80-5.40) m/uL Hgb 8.9 L D (11.4-16.0) gm/dL Hct 28.2 L (34.0-46.0) % MCV 100.5 H (80.0-100.0) fL RDW 15.6 H (11.5-15.5) % Lymphocytes # 0.9 L (1.0-4.8) k/uL Carbon Dioxide 32 H (22-30) mmol/L BUN 20 H (7-17) mg/dL Creatinine 0.40 L (0.52-1.04) mg/dL Glucose 119 H (74-99) mg/dL POC Glucose (mg/dL) 158 H (75-99) mg/dL AST 38 H (14-36) U/L ALT 40 H (4-34) U/L Albumin 3.0 L (3.5-5.0) g/dL Microbiology - Last 24 Hours (Table) 10/13/21 03:20 Gram Stain - Preliminary Sputum Sputum Culture - Preliminary
--- NOTE | 2021-10-14 21:32 | P.PN ---
Subjective Progress Note Date: 10/14/21 Principal diagnosis: Pneumonia pressure ulcer and multiple antibiotic allergies Patient is a 51-year-old female presenting to the hospital on September 10 for mental status changes patient did have a evidence of COVID-19 infection, with respiratory failure requiring intubation also with E. coli UTI and the patient did have multiple antibiotic allergies. The patient is status post tracheostomy and PEG tube placement on 09/23/2021 On today's evaluation that is to to 10/14/2021, patient is afebrile, the patient is hemodynamically stable not requiring pressor support, the patient is breathing comfortably on the trach collar, no cough or purulent secretions through the ET has been reported, patient been tolerating her tube feeds and no diarrhea has been reported by the nursing staff Objective - Vital Signs Vital signs: Vital Signs Temp 99 F 10/14/21 12:00 Pulse 83 10/14/21 15:00 Resp 30 H 10/14/21 15:00 BP 101/59 10/14/21 15:00 Pulse Ox 98 10/14/21 15:00 Intake & Output 10/13/21 10/14/21 10/14/21 18:59 06:59 18:59 Intake Total 1090 1050 1270 Output Total 855 1165 1310 Balance 235 -115 -40 Weight 59.5 kg Intake: IV 220 240 200 Sodium Chloride 0.9% 1, 220 240 200 000 ml @ 20 mls/hr IV . Q24H ADDIE Rx#:[id number] Intake, IV Titration 200 Amount Magnesium Sulfate-D5w Pmx 200 1 gm In Dextrose/Water 1 100ml.bag @ 100 mls/hr IVPB Q1H ADDIE Rx#: [id number] Tube Feeding 720 720 720 Other 150 90 150 Output: Urine 855 1165 1310 Other: Voiding Method Indwelling Catheter Indwelling Catheter Indwelling Catheter ABP, PAP, CO, CI - Last Documented Arterial Blood Pressure 123/58 - Exam GENERAL DESCRIPTION: Middle-aged female, no distress. No tachypnea or accessory muscle of respiration use. LUNGS: Unlabored breathing. Decreased breath sound at the base. No wheeze or crackle. HEART: S1, S2, regular rate and rhythm. No loud murmur ABDOMEN: Soft, no tenderness , EXTREMITIES: No edema of feet. - Labs CBC & Chem 7: 10/14/21 08:23 10/14/21 08:23 Labs: Abnormal Lab Results - Last 24 Hours (Table) 10/13/21 10/14/21 10/14/21 Range/Units 17:43 00:36 05:58 RBC (3.80-5.40) m/uL Hgb (11.4-16.0) gm/dL Hct (34.0-46.0) % MCV (80.0-100.0) fL RDW (11.5-15.5) % Lymphocytes # (1.0-4.8) k/uL Carbon Dioxide (22-30) mmol/L BUN (7-17) mg/dL Creatinine (0.52-1.04) mg/dL Glucose (74-99) mg/dL POC Glucose (mg/dL) 112 H 117 H 112 H (75-99) mg/dL AST (14-36) U/L ALT (4-34) U/L Albumin (3.5-5.0) g/dL 10/14/21 10/14/21 10/14/21 Range/Units 08:23 08:23 11:22 RBC 2.81 L (3.80-5.40) m/uL Hgb 8.9 L D (11.4-16.0) gm/dL Hct 28.2 L (34.0-46.0) % MCV 100.5 H (80.0-100.0) fL RDW 15.6 H (11.5-15.5) % Lymphocytes # 0.9 L (1.0-4.8) k/uL Carbon Dioxide 32 H (22-30) mmol/L BUN 20 H (7-17) mg/dL Creatinine 0.40 L (0.52-1.04) mg/dL Glucose 119 H (74-99) mg/dL POC Glucose (mg/dL) 158 H (75-99) mg/dL AST 38 H (14-36) U/L ALT 40 H (4-34) U/L Albumin 3.0 L (3.5-5.0) g/dL Microbiology - Last 24 Hours (Table) 10/13/21 03:20 Gram Stain - Preliminary Sputum Sputum Culture - Preliminary Assessment and Plan (1) Pneumonia Current Visit: Yes Status: Acute Code(s): J18.9 - PNEUMONIA, UNSPECIFIED ORGANISM SNOMED Code(s): 820509113 (2) Allergy to multiple antibiotics Current Visit: Yes Status: Acute Code(s): Z88.1 - ALLERGY STATUS TO OTHER ANTIBIOTIC AGENTS SNOMED Code(s): 496786250 (3) COVID-19 Current Visit: Yes Status: Acute Code(s): U07.1 - COVID-19 SNOMED Code(s): 375461629 Plan: 1-patient with stage III sacral pressure ulcer as well as states 3 pressure ulcer to the upper back area, local wound care with the medahoney followed by moist dressing and keep the area off the pressure, left elbow pressure ulcer stage II with no cellulitis local wound care with a dry with Aquacel silver dressing and keep the area off the pressure 2-Patient with acute respiratory failure which is multifactorial in this patient who did have a covid19 pneumonia and a concern for possible secondary bacterial pneumonia , patient did have new fever on 10/03/2021 with concern for possible PICC line infection blood cultures were obtained from the PICC line has been negative , patient is currently doing well off antibiotics and no further fever has been recorded 3-patient sputum did grow Radha, could be colonizer versus oropharyngeal candidiasis, the patient has completed her course of Eraxis, and we'll continue monitor closely off antifungal Time with Patient: Less than 30
[2021-10-15] MEDS: LORazepam 2 MG/ML INJ IV SCH ×4 (00:04→17:18)
[2021-10-15] MEDS: HYDROmorphone 1 MG/ML 1 ML SYRINGE IVP SCH ×6 (00:04→19:48)
[2021-10-15 06:04] LABS: Glucose,Whole Blood 114 mg/dL (75-99)
[2021-10-15] MEDS: PANTOPRAZOLE 40 MG/10 ML VIAL IV SCH (08:11)
[2021-10-15] MEDS: carBAMazepine 200 MG TAB PO SCH ×3 (08:12→19:48)
[2021-10-15] MEDS: APIXABAN 5 MG TAB PO SCH ×2 (08:12→19:48)
[2021-10-15] MEDS: AMIODARONE 200 MG TAB PO SCH (08:13)
[2021-10-15] MEDS: CHOLECALCIFEROL 125 MCG (5000 IU) TABLET PO SCH (08:13)
[2021-10-15] MEDS: METOPROLOL TARTRATE 25 MG TAB PO SCH ×2 (08:13→19:48)
[2021-10-15] MEDS: QUEtiapine 100 MG TAB PO SCH ×2 (08:15→19:48)
--- NOTE | 2021-10-15 08:21 | XR ---
EXAMINATION TYPE: XR chest 1V portable DATE OF EXAM: 10/15/2021 COMPARISON: X-ray dated 10/13/2021 HISTORY: Follow-up TECHNIQUE: Single frontal view of the chest is obtained. FINDINGS: Unchanged tracheostomy tube, left chest wall ICD generator and right-sided PICC line. Unchanged cardi omediastinal silhouette. No progressive pulmonary infiltration. IMPRESSION: No significant interval change.
--- NOTE | 2021-10-15 09:29 | P.PN ---
Subjective Progress Note Date: 10/15/21 Principal diagnosis: Respiratory failure. Reevaluated today on 09/18/21, patient remains in the ICU, intubated and mechanically ventilated. Patient is not making any significant neurological improvement. She has been off sedation for few days, yesterday we started the patient only on Precedex, and that's mostly to keep her synchronous with the ventilator. Again her mental status is basically about the same, and she is not showing much improvement. She opens eyes slightly to deep painful stimuli, but no purposeful movement and no responses to verbal stimuli. She is on assist control rate of 32 tidal volume 325 FiO2 was 50% and PEEP was 8 however I cut down her FiO2 to 45%. Patient is receiving enteral feeding, vital AF at 34 mL per hour. ABG today showed a pO2 of 107 pCO2 44 pH of 7.46. Basic metabolic profile is normal WBC count is 7.6 hemoglobin is 9.5. No significant metabolic abnormality to explain her encephalopathy at this point. Patient is still being followed by neurology on the case. Patient is still being treated for coronary virus infection, and UTI on admission secondary to E. coli. 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 No acute process was noted. Patient remains on seizure medications as per neurology including Keppra and Tegretol. EEG showed slowing/moderate degree of slowing suggestive of generalized cerebral dysfunction. This is seen with toxic metabolic encephalopathy. Reevaluated today on 09/19/21, patient remains in the ICU, intubated and mechanically ventilated, she is on assist control rate of 32 tidal volume of 325 FiO2 45% and PEEP of 8. Patient had to be placed on propofol yesterday at 50 mcg/kg/m, she is on IV fluid at 50 mL per hour. ABG showed a pO2 of 78 pCO2 of 47 pH of 7.44. Chest x-ray is basically about, no change. WBC count is 9.2 hemoglobin is 10.3. Electrolytes are normal. Again the patient had to be placed back on propofol because she was getting agitated, restless, and not syn chronous with the ventilator yesterday. Remains on propofol today, and patient is not responding to any stimuli. Hence I'm keeping her on propofol, I believe the patient will eventually require tracheostomy and PEG tube placement unless CODE STATUS is changed to comfort care. Chest x-ray is basically showing no significant abnormalities. She does have mild pulmonary vascular congestion. Reevaluated today on 09/20/21, patient remains in the ICU, intubated and mechanically ventilated. She is on assist control rate of 32 tidal volume 325 FiO2 is 45%, PEEP is at 8. Patient is back on propofol, intermittently has been receiving Dilaudid, patient becomes at times agitated, and asynchronous with the ventilator, early in the week, I was able to hold sedation for a number of days, however the patient remained unresponsive to verbal stimuli, and apparently she had significant toxic metabolic encephalopathy. CT of the brain was nondiagnostic. Patient was seen by neurology on consultation, and still believe that this is a occipital metabolic encephalopathy picture. Patient is on propofol now at 50 mcg/kg/m, not requiring any other sedatives or narcotics. Patient has been feeding/enteral feeding vital AF at 34 mL per hour. ABG today showed a pO2 of 101 pCO2 47 pH of 7.44. Chest x-ray continues to show retrocardiac density likely atelectasis, otherwise no significant findings on the chest x-ray Progress note dated 09/21/2021. This is a 51-year-old female, who was admitted to the hospital on September 10. She came in with mental status changes, sepsis, and hypernatremia. She came to the intensive care unit on September 10, and was intubated for respiratory failure on 09/11/2021. The patient did test positive for coronavirus. She remains on mechanical ventilator. The patient is on the volume assist control mode, rate 32, tidal volume 325, FiO2 45%, and PEEP of 8. Blood gases show pO2 of 91, pCO2 49, and pH is 7.45. The patient's getting half-normal saline at 50 mL an hour, propofol at 50 mcg/kg/m, and vital AF at 34 mL an hour, which is goal. White count 10.2, hemoglobin 9.7, hematocrit 30.4, and platelet count was normal. Sodium 139, potassium 3.5, chlorides 104, CO2 32, anion gap 3, BUN 34, and creatinine 0.65. Microbiologic studies show evidence of Escherichia coli in the urine from September 10, and presumptive staph aureus in the sputum from August 30 0. The chest x-ray shows left lower lobe atelectasis and/or infiltrates. The patient is currently on antifungals, and aztreonam. The infectious disease doctor is currently on the case. Progress note dated 09/22/2021. 51-year-old female who was admitted to the hospital on 09/10/2021. She came in with mental status changes, sepsis, and hypernatremia. She came to the intensive care unit on September 10, and was intubated for respiratory failure on 09/11/2021. She did test positive for coronavirus. She remains on the mechanical ventilator. The plan is for a tracheostomy and PEG tube placement today by one of the surgeons. The patient also had a right radial arterial line placed by our team. Currently, she is on the volume assist control mode, rate 32, tidal volume 325, FiO2 45%, PEEP of 8. Arterial blood gases show pO2 of 88, pCO2 46, and a pH is 7.48. The patient is on propofol at 40 mcg/kg/m, saline at 20 mL an hour, half-normal saline at 50 mL an hour, and vital, at 46 mL an hour, which is goal. Obviously, tube feeds on hold for anticipated surgery today. White count 9.3, hemoglobin 8.8, hematocrit 27.3, and platelet count 269,000. Sodium 139, potassium 3.4, chlorides 104, CO2 33, anion gap 2, BUN 26, and creatinine 0.54. AST 500, ALT 166. An ultrasound the right upper quadrant will be ordered. Chest x-ray shows persistent left lower lobe atelectasis and/or inf iltrate. Progress note dated 09/23/2021. This is a 51-year-old female, again seen in room 254. She's now been in the hospital for 13 days. She was admitted on 09/10/2021. She came in with mental status changes, and sepsis. She came to the intensive care unit on September 10, and was intubated respiratory failure on 09/11/2021. She did test positive for coronavirus. She remains on the mechanical ventilator. The patient was to have a tracheostomy and PEG tube placement performed. It was to be done yesterday but for some reason did not take place. She remains on the volume assist control, rate 32, tidal volume 325, FiO2 45%, and PEEP of 8. Blood gases show pO2 80, pCO2 39, pH is 7.48. The patient's getting saline at 20 mL an hour, half-normal saline at 50 mL an hour, and tube feeds are currently on hold. White count 10, hemoglobin 9.3, hematocrit 29.2, and platelet count 341,000. Sodium 139, potassium 3.6, chlorides 106, CO2 27, anion gap 6, BUN 23, and creatinine 0.59. Albumin is 2.4. Microbiology from September 10, shows a urine that was positive for an E. coli, and a sputum from September 17, it is positive for Staphylococcus aureus. The patient is currently on vancomycin and Eraxis. Progress note dated 09/24/2021. 51-year-old female, again seen in room 254. The patient underwent tracheostomy and PEG tube placement yesterday, on September 23. The patient is now been in the hospital for 14 days. The patient was admitted on 09/10/2021. She did test positive for coronavirus. The patient was intubated on 09/11/2021, for respiratory failure. Currently, she is on volume assist control, rate 32, tidal volume 325, FiO2 40%, and PEEP of 8. Arterial blood gases show pO2 of 79, pCO2 39, pH is 7.45. The patient's getting half-normal saline at 50 mL an hour. She is on propofol at 40 mcg/kg/m. Tube feedings are still on hold. She's getting an antifungal, as well as Levaquin. Labs include a white count 9.1, hemoglobin 9.5, hematocrit 29.5 and platelet count which is normal. Sodium 133, potassium 3.4, chlorides 101, CO2 26, anion gap 6, BUN 19, and creatinine 0.53. AST is 229, and ALTs 159. Microbiologic studies are positive for a urine sample from September 10, for E. coli, and methicillin sensitive staph aureus in the sputum from September 17. Chest x-ray shows patchy bibasilar and bilateral infiltrates. Progress note dated 09/25/2021. 51-year-old female again seen in room 254. She underwent tracheostomy and PEG tube placement on September 23. The patient has been in the hospital now for 15 days. She remains on the ventilator. She is on the volume assist control mode, rate 32, tidal volume 325, FiO2 40%, PEEP of 8. Blood gases show pO2 of 95, pCO2 51, and pH is 7.44. The patient's getting half-normal saline at 50 mL an hour, and currently, propofol is off. She is also on vital 1.2 at 46 mL an hour, which is goal. She remains on Levaquin for a sputum positive for methicillin sensitive staph aureus. Also, the patient is on an antifungal as per infectious diseases. Because of her poor mental status, we will repeat a computed tomography scan of the brain with contrast. Her hoping to be able to get this patient to a long-term acute care facility or specialized nursing facility. White count 9.9, hemoglobin 9, hematocrit 26.8 and platelet count 333,000. Sodium 137, potassium 3.9, chlorides 102, CO2 31, anion gap 4, BUN 18, creatinine 0.53. Chest x-ray shows a tracheostomy tube in the midline. There is diffuse bilateral infiltrates, with worsening in the retrocardiac area. Progress note dated 09/26/2021. This is a 51-year-old female again seen in room 254. She underwent tracheostomy and PEG tube placement on September 23. She's now been in the hospital for 16 days. She remains on the ventilator. The patient was admitted on 09/10/2021. She did test positive for coronavirus. The patient was intubated on 09/11/2021, for respiratory failure. She remains on the ventilator. She is on the volume assist control mode, rate 32, tidal volume 325, FiO2 40%, to be reduced down to 35%, and PEEP of 8. Blood gases show pO2 of 111, pCO2 42, and a pH is 7.52. The patient is receiving saline at 20 mL an hour, half-normal saline at 50 mL an hour, and vital AF at 57 mL an hour, which is goal. The patient remains on Levaquin and Eraxis. The patient's chest x-ray is unchanged. Recent repeat brain CT was negative. White count 8.7, hemoglobin 8.8, hematocrit 27.6, and platelet count 330,000. Sodium 138, potassium 3.6, chlorides 102, CO2 34, anion gap 2, BUN 22, creatinine 0.38. Progress note dated 09/27/2021. 51-year-old female, again seen in room 254. The patient underwent tracheostomy and PEG tube placement, on 09/23/2021. She's now been in the hospital for 17 days. She remains on the ventilator. She was initially admitted back on 09/10/2021. She did test positive for coronavirus. She was intubated on 09/11/2021, for worsening respiratory failure. She remains on the mechanical ventilator. The patient is on the volume assist control mode, rate 32, tidal volume 325, FiO2 35%, and PEEP of 8. Blood gases show pO2 of 82, pCO2 40, and pH is 7.49. She's getting saline at 20 mL an hour, half-normal saline at 50 mL an hour, and vital AF at 57 and hour, which is goal. We are going to DC her Decadron. She been on it since the . White count 8.3, hemoglobin 9.5, hematocrit 30, and platelet count 356,000. Sodium 138, potassium 4, chlorides 103, CO2 31, anion gap 4, BUN 22, creatinine 0.45. Microbiology shows a staph aureus from September 17, and the sputum. It's a methicillin sensitive staph aureus. The patient remains on Eraxis and Levaquin. Chest x-ray is essentially unchanged. Reevaluated today on 10/09/2021, patient remains in the ICU, remains on ventilatory support, she is on pressure control of 22 inspiratory time of 0.9 FiO2 40% PEEP of 5. ABG today showed a pO2 of 131 pCO2 of 31 pH of 7.52. Patient is not requiring any pressors, she is not requiring any drips, no sedation is needed, she is still receiving tube feeding vital HPI 22 mL per hour. Patient had a relatively uneventful night, and we plan to place the patient back on a mode of weaning, and I plan to place her back either on a T piece orotracheal collar today. No ABG was done today. No chest x-ray was done. Chest x-ray from yesterday showed basically no change. Tracheostomy is intact. Reevaluated today on 10/10/2021, patient remains on TP, over the last 24 hours, tolerating weaning very well, seems to be quite agitated, and would like to go home. Patient is getting more agitated with the t piece itself, although she seems to be very comfortable and her O2 saturation is high in the 90s. Went ahead and recommended decannulation of the trach, and I removed the tracheostomy at bedside, and the sutures around the tracheostomy were also removed. Patient felt much better and she was switched to a nasal cannula. WBC count today is 6.6 hemoglobin 8.1 electrodes. Normal except for low potassium be corrected accordingly. Went ahead and discontinued his Eraxis, patient is on vancomycin, and hopefully that will be discontinued by infectious disease today on rounds. No chest x-ray was done today. But I reviewed the chest x-ray from yesterday Reevaluated today on 10/11/2021, patient remains in the ICU, yesterday I D cannulated the patient, however few hours later, the patient developed left lower lobe atelectasis/collapse, and she was having hard time breathing, she could not clear any of her secretions. Patient was very weak, and she had a very ineffective cough. I was notified about this patient by the nurse and by respiratory therapy, I recommended that the patient gets her trach placed back again. And this time she is to have a size 6 a size 7 Shiley tube placed by respiratory therapy. Indeed the patient had a size 6 placed, placed back on mechanical ventilation overnight, since she was agitated we added Precedex overnight. Remains on the vent overnight, and she is on Precedex. Her ABG today showed a pO2 of 105, pCO2 34 pH of 7.51. This was on assist control mode of mechanical ventilation, she was on rate of 28 tidal volume 400 FiO2 40% and PEEP of 8. Then I recommended that we give the patient today another trial on trach collar but she is to be suctioned if she develops any shortness of breath or she develops worsening secretions. Patient remains on vital AF at 60 mL/h she was on a very low dose of norepinephrine at 0.02 which I have discontinued this morning. Chest x-ray is showing dramatic improvement in her left lower lobe atelectasis/collapse. But it is not fully completely resolved. Nonetheless the patient continues to have minimal atelectasis at the left base. WBC count today is 7 hemoglobin 7.2 electrolytes are normal renal profile is normal. Progress note dated 10/12/2021. The patient is again seen in room 254. I saw her last on September 27. The patient was admitted to the hospital on September 10. She came in with mental status changes, seizures, and acute kidney injury, as well as coronavirus infection. The patient came to the intensive care unit on 09/11/2021, and was intubated on the same day. The patient had a tracheostomy and PEG tube placed on 09/23/2021. The patient remains on the ventilator. She has had some weaning with trach collar. Currently, she is on the volume assist control, rate 28, tid al volume 400, FiO2 40%, and PEEP of 8. Blood gases show a PaO2 of 166, pCO2 37, and pH is 7.47. That was on 50% FiO2. The patient's on saline at 100 mL an hour, and Precedex at 0.2 mcg/kg/h. We are going to give the patient Ativan, Seroquel, and Dilaudid. We will discontinue the Precedex. We'll make sure the fluids were cut back, and give the patient Lasix 40 mg IV push. The only lab data from today include a glucose of 115, and blood gases as mentioned. Chest x-ray shows some mild interstitial changes, and a retrocardiac and left basilar opacity. Microbiology is reviewed. And there is no recent culture data of significance. Progress note dated 10/13/2021. Patient is again seen in room 254. The patient is been in the hospital now for 33 days. The patient was admitted to the hospital on September 10. She came in with mental status changes, acute kidney injury, and seizures. She also tested positive for coronavirus infection. She came to the intensive care unit on September 11, and was intubated on 09/11/2021. The patient had a tracheostomy and PEG tube placed on 09/23/2021. Currently, she is on volume assist control, with a rate of 28, tidal volume 400, FiO2 40%, and PEEP of 8. No blood gases were done today. The patient's on saline at 20 mL an hour, and vital AF at 60 mL an hour, which is goal. Yesterday, she spent from 8:30 AM to noon, on CPAP, and from noon, to 6:30 PM on trach collar. We will attempt to do the same thing today. Laboratory data includes a white count 6.1, hemoglobin 7.4, hematocrit 23.4, and platelet count 348,000. Sodium, potassium, chloride, CO2, all normal. Anion gap is normal. BUN 19, creatinine 0.42. Albumin is 2.6. Chest x-ray shows diffuse bilateral infiltrates, and is unchanged. Progress note dated 10/14/2021. Patient is again seen in room 254. The patient has not been here in the hospital for 34 days. She was admitted back on September 10. She came in with mental status changes, acute kidney injury, and seizures. She also tested positive for coronavirus infection. She came to the intensive care unit on September 11, and was intubated on the same day. She had a tracheostomy and PEG tube placement on 09/23/2021. Currently, she is on T-piece, at 50%. She's been on that since 11:00 AM yesterday. In addition, the patient's on vital AF at 60 mL an hour. She's getting saline at 20 mL an hour. Today's laboratory includes a white count 7.7, hemoglobin 8.9, hematocrit 28.2, and platelet count 429,000. Sodium 138, potassium 4.2, chlorides 101, CO2 32, anion gap 5, BUN 20, creatinine 0.4. No chest x-ray today. Progress note dated 10/15/2021. Patient is again seen in room 254. The patient is now been in the hospital for 35 days. She was admitted back on September 10, and came in with mental status c hanges, acute kidney injury, and seizures. She also tested positive for coronavirus infection. She came to the intensive care unit on September 11, and was intubated on the same day. She underwent tracheostomy and PEG tube placement on 09/23/2021. She has been on 50% T-piece for about 2 days now. The patient is receiving vital HP at 60 mL an hour, which is goal, saline at 20 mL an hour, and is currently not getting any sedation. The patient is receiving Seroquel, Ativan, and Dilaudid. We are going to cut back on the Ativan and Dilaudid. No new labs today. Labs from yesterday have been reviewed. Chest x- ray continues to show diffuse bilateral infiltrates, which are unchanged from the previous day. Objective - Vital Signs Vital signs: Vital Signs Temp 98.2 F 10/15/21 08:00 Pulse 92 10/15/21 09:00 Resp 34 H 10/15/21 09:00 BP 108/62 02/17/22 09:00 Pulse Ox 98 10/15/21 09:00 Intake & Output 10/14/21 10/15/21 10/15/21 18:59 06:59 18:59 Intake Total 1450 1250 220 Output Total 1535 1380 90 Balance -85 -130 130 Weight 57.7 kg Intake: IV 240 260 40 Sodium Chloride 0.9% 1, 240 260 40 000 ml @ 20 mls/hr IV . Q24H ADDIE Rx#:[id number] Intake, IV Titration 200 Amount Magnesium Sulfate-D5w Pmx 200 1 gm In Dextrose/Water 1 100ml.bag @ 100 mls/hr IVPB Q1H ADDIE Rx#: [id number] Tube Feeding 840 900 180 Other 170 90 Output: Urine 1535 1380 90 Other: Voiding Method Indwelling Catheter Indwelling Catheter Indwelling Catheter ABP, PAP, CO, CI - Last Documented Arterial Blood Pressure 123/58 - Exam No acute distress, currently off of all sedation, with a midline tracheostomy, currently on T-piece at 50%. HEENT examination is grossly unremarkable. Neck supple. Full range of motion. No adenopathy thyromegaly or neck vein distention. Midline tracheostomy is noted. Cardiovascular examination reveals regular rhythm rate. S1-S2 normal. No S3 or S4. No discernible murmur noted. Heart rate 92 bpm. Heart sounds are distant. Lungs reveal bilateral expiratory rhonchi and wheezes. No crackles. Breath sounds are equal bilaterally. Saturations are 98%. Breath sounds are improved. Abdomen soft, without bowel sounds. No masses. PEG tube is noted. Extremities are intact. No cyanosis or clubbing. Trace edema is noted. Skin is without rash or lesion. Neurologic examination is much improved. The patient's awake and alert. - Labs CBC & Chem 7: 10/14/21 08:23 10/14/21 08:23 Labs: Abnormal Lab Results - Last 24 Hours (Table) 10/14/21 10/15/21 Range/Units 11:22 06:02 POC Glucose (mg/dL) 158 H 114 H (75-99) mg/dL Assessment and Plan Assessment: Acute hypoxemic respiratory failure secondary to coronavirus associated pneumonia, status post intubation and mechanical ventilation on 09/11/2021. Status post tracheostomy and PEG tube placement on 09/23/2021. Acute mental status changes, secondary to toxic/metabolic encephalopathy, much improved. Methicillin sensitive staph aureus pneumonia, left lower lobe, treated. Dehydration, on admission, resolved. History of seizure disorder. Prior history of pulmonary embolism. Paroxysmal atrial fibrillation. Cardiomyopathy with ejection fraction of 30-35%. Status post pacemaker implantation. 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 Hypothyroidism. CAD. History of CVA in 2007. History of recurrent E. coli urinary tract infections, treated. History of psoriasis. History of sacral/coccygeal decubitus ulcer. Plan: Plan dated 09/21/2021. Because of the patient's overall poor status, and the fact that she still is a full code, surgery will be consulted for possible tracheostomy and PEG tube placement. We will continue to follow make recommendations where appropriate. Again, prognosis is very poor. She remains on mechanical ventilator. She remains on appropriate antibiotics. Infectious diseases is following. We will continue to follow make recommendations where appropriate. Plan dated 09/22/2021. The patient is going to hopefully have a tracheostomy and PEG tube placement today. The patient remains on propofol at 40 mcg/kg/m. We did replace the arterial line. The previous arterial line was poorly functional. She had a right radial arterial line placed today by our team. A previous urine culture from September 10 showed Escherichia coli. Sputum from September 17 showed Radha, and presumptive Staphylococcus aureus. The patient remains on an antifungal, and vancomycin as per infectious diseases. Mariam follow and make recommendations where appropriate. Prognosis is certainly guarded. Plan dated 09/23/2021. The patient had methicillin sensitive staph aureus in the sputum and is currently on vancomycin. That can be changed to something other than vancomyc in. The patient should have a tracheostomy and PEG tube placement today. It was to be done yesterday. The patient is currently off all sedation. Tube feedings on hold. Oxygenation and ventilation are excellent. We will continue to follow make recommendations where appropriate. Overall prognosis remains very guarded. Most recent brain CT shows old infarcts, with nothing acute and no major change. Plan dated 09/24/2021. The patient underwent tracheostomy and PEG tube placement yesterday, 09/23/2021. She remains on the mechanical ventilator. Labs, x-rays, and medications are all reviewed. The staph. in the sputum, was methicillin sensitive. Hence, vancomycin was discontinued, and she was started on Levaquin. She remains on the antifungal. We will continue to follow make recommendations where appropriate. We'll attempt to wean her off the propofol. Additional recommendations and suggestions are coming. Prognosis is guarded. Plan dated 09/25/2021. We'll attempt another CAT scan of the brain with contrast, because of the patient's poor mental status. Two prior CT scans did not show anything acute. The patient remains on Levaquin, and Eraxis. The patient remains off of all. We will continue to follow make recommendations where appropriate. Overall prognosis remains guarded. Plan dated 09/26/2021. Repeat brain CT with contrast, was negative for anything acute. The patient's mental status remains poor. The patient is currently off all sedatives. The patient remains on antibiotic and antifungal as above. The sputum was positive for methicillin sensitive staph aureus. Fungal cultures are currently negative. The patient's chest x-ray is unchanged. The FiO2 was reduced on the 35%. Labs, x-rays, and medications are all reviewed. We will continue to follow and make recommendations where appropriate. Prognosis is certainly guarded. Plan dated 09/27/2021. The patient's repeat brain CT with contrast, was negative for anything acute. The patient's overall mental status remains very poor. The patient will have a daily interruption of sedation, and a spontaneous breathing trial today. We will DC the Decadron, as the patient has been on it since September 12. The patient is currently on Levaquin for a methicillin sensitive staph aureus that was discovered in the sputum. He also remains on the antifungal, Eraxis. We will continue to follow make recommendations where appropriate. The patient's labs, x-rays, and medications are all reviewed. Prognosis is guarded. Possible discharge to a long-term acute care facility, or a specialized nursing facility. Plan dated 10/12/2021. The patient's neurologic status is much improved. He is awake and alert. She has had some weaning along the way. Today, we will attempt to get her off of Precedex, by adding some Ativan, Seroquel, and when necessary Dilaudid. In addition, IV fluids are made at KVO. We will give the patient Lasix 40 mg IV push. Additional recommendations and suggestions are forthcoming. Prognosis is guarded. We also place the patient on some pressure support and CPAP, and will transition her to trach collar. Additional recommendations and suggestions are forthcoming. We will continue to follow make recommendations where appropriate. Prognosis is very guarded. Plan dated 10/13/2021. The patient did well yesterday on her eating, and spent about 6-1/2 hours on trach collar. The patient's currently not on any sedation whatsoever. She does get Ativan, and Seroquel, and when necessary Dilaudid. Yesterday, she was on dexmedetomidine. Labs, x-rays, and medications all all reviewed. The patient will again have additional weaning today. Prognosis is guarded. We will continue to follow her and make recommendations where appropriate. Hopefully, [facility] can get her to a long-term acute care facility. Plan dated 10/14/2021. Currently, the patient has been receiving oxygen at 50%. She has not been on the ventilator since 11:00 in the morning yesterday. She is getting her vital AF at 60 mL an hour. She's getting saline at 20 mL an hour. She is off all sedation. We will continue to follow make recommendations were appropriate. Prognosis is guarded. The plan is to hopefully get her transferred to a long- term acute care facility by the end of the week. Plan dated 10/15/2021. The patient's Ativan and Dilaudid will be cut back. The Ativan will be 1 mg every 6 hours, and Dilaudid 1 mg every 6 hours. The patient remains on the same dose of Seroquel. Currently, she is getting saline at 20 mL an hour. She's not receiving any additional sedation. The patient is getting tube feedings at goal, which are vital HP at 60 mL an hour. I've asked respiratory to try a trach collar on this patient. She should not be decannulated this time. She is far too weak, and she still producing significant tracheobronchial secretions. She can be decannulated at a later time, after being transferred to a rehab facility, or long-term acute care. Time with Patient: Greater than 30
[2021-10-15] MEDS: SODIUM CHLORIDE 0.9% 1,000 ML IV SCH (12:24)
--- NOTE | 2021-10-15 14:21 | P.PN ---
<Godwin, - Last Filed: 10/15/21 14:11> Subjective Progress Note Date: 10/15/21 Principal diagnosis: Altered mental status Patient is a 51-year-old female presented to the emergency room with altered mental status, COVID-19 pneumonia, UTI, seizures and possible stroke. UTI and pneumonia have been treated, and sepsis resolved. 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 Patient has been in the hospital since September 10, 2021 and has had extensive evaluations and treatment. Patient has been followed by multiple consultants including intensive care/pulmonary, neurology, and surgical services. Hospitalists have been providing coverage from 09/10/2021 through 10/05/2021. Patient continues to require mechanical ventilation. Patient is status post PEG tube placement and tracheotomy placement. 10/06/21 Patient was seen and examined at bedside in the ICU. Continues to require mechanical ventilation via tracheostomy. FiO2 40%, PEEP 5, oxygen saturation 96%, blood pressure 149/82. She is alert, responds to name, and follows simple commands. Denies any acute symptoms, unable to speak, replies by shaking her head yes or no. Left-sided paralysis, right-sided weakness able to grasp fingers and wiggle toes on the right. White blood cell count 5.6, kidney fun ction improved the BUN 15, creatinine 0.3, liver enzymes continue to be elevated but improving. [facility], insurance denied, awaiting clearance from social work. 10/07/21 Patient was seen and examined at bedside in ICU. Patient is resting comfortably, in no acute distress. Continues to require mechanical ventilation via tracheostomy. FiO2 40%, PEEP 5, oxygen saturation 95%, blood pressure 119/74. Patient is alert and oriented to self, able to follow simple commands. Continued left-sided paralysis, right-sided weakness. Potassium 3.3, was treated according to protocol. Kidney function remains stable, white count 7.1 today. Still waiting for insurance appeal for transfer to long-term acute care. 10/08/21 patient was seen and examined in ICU. Was up in the chair via rebecca lift, in mild distress. Oxygen saturation was declining to 70% while on trach collar. Patient was trying to say that she can't breathe and she needs help. Nurse and respiratory therapist assisted patient back on mechanical ventilation at previous settings, with improvement of oxygen saturation. Patient was alert and oriented to self.continued right-sided weakness and left-sided paralysis.potassium improved to 3.5.still awaiting insurance appeal for transfer to long-term acute care 10/09/2021 Patient was seen and examined at bedside in ICU. Resting comfortably in bed, in no acute distress. Alert and oriented to self. She was trying to say that she wants to go home. Continued right-sided weakness and left-sided paralysis. Continues to require mechanical ventilation via tracheostomy. FiO2 40% PEEP of 5. ABG was stable. Tolerating tube feeding via PEG tube. Awaiting insurance appeal for transfer to long-term [facility]. Hospitalist coverage 10/10/21-10/12/21 10/13/2021 Patient seen and examined at bedside in ICU. Patient lethargic, not answering questions, arises to touch but then falls back asleep. Spoke with nurse regarding patient's status over the weekend, strategic buyer to try to decannulate the patient, became hypoxic and needed trach replaced. Today patient is on CPAP via tracheostomy, rate of 28, tidal volume 400, FiO2 40%, and PEEP of 8. We'll continue following pulmonary's recommendations. Blood Pressure was decreased on exam, already being treated with fluid bolus. Will follow strategic buyer recommendations for pressure control. Still waiting for insurance clearance for long-term acute care transfer. 10/14/21 Patient was seen and examined at bedside in ICU. Was resting in bed, no acute distress. Awoke to name and touch, oriented to self, followed simple commands. She was trying to verbalize that she wants to home. Continued right-sided weakness, left-sided paralysis. She was weaned to a t-piece at 50%, saturating well. Has been off the ventilator more than 24 hours. We will continue to follow pulmonary recommendations. 10/15/2021 Patient was seen and examined at bedside in ICU. Resting in bed in no acute distress. Alert and oriented to self, following simple commands. Continued right-sided weakness, left-sided paralysis. Has been maintaining oxygenation with T piece at 50%. Attempting to wean to trach collar. Patient still trying to verbalize that she wants to go home. Chest x-ray shows no changes from previous exam. We'll continue following strategic buyer recommendations. Objective - Vital Signs Vital signs: Vital Signs Temp 97.8 F 10/15/21 12:00 Pulse 89 10/15/21 14:00 Resp 12 10/15/21 14:00 BP 165/82 10/15/21 14:00 Pulse Ox 95 10/15/21 14:00 Intake & Output 10/14/21 10/15/21 10/15/21 18:59 06:59 18:59 Intake Total 1450 1250 680 Output Total 1535 1380 620 Balance -85 -130 60 Weight 57.7 kg 57.7 kg Intake: IV 240 260 140 Sodium Chloride 0.9% 1, 240 260 140 000 ml @ 20 mls/hr IV . Q24H [facility] Rx#:[id number] Intake, IV Titration 200 Amount Magnesium Sulfate-D5w Pmx 200 1 gm In Dextrose/Water 1 100ml.bag @ 100 mls/hr IVPB Q1H [facility] Rx#: [id number] Tube Feeding 840 900 540 Other 170 90 Output: Urine 1535 1380 620 Other: Voiding Method Indwelling Catheter Indwelling Catheter Indwelling Catheter ABP, PAP, CO, CI - Last Documented Arterial Blood Pressure 123/58 - Constitutional General appearance: Present: cooperative, no acute distress, thin - Neck Details: Tracheostomy in place - Respiratory Respiratory: bilateral: diminished, rhonchi - Cardiovascular Heart rate: 60 Rhythm: regular Heart sounds: normal: S1, S2 - Peripheral pulses radial pulse Peripheral Pulses: bilateral: Normal - Gastrointestinal Gastrointestinal Comment(s): PEG tube in place General gastrointestinal: Present: normal bowel sounds, soft - Genitourinary Genitourinary Comment(s): Catheter in place - Integumentary Integumentary: Present: normal - Neurologic Neurologic: Present: focal deficits - Musculoskeletal Musculoskeletal: Present: right sided weakness, left sided weakness (Paralysis) - Psychiatric Psychiatric Comment(s): Oriented to self - Allied health notes Allied health notes reviewed: nursing - Labs CBC & Chem 7: 10/14/21 08:23 10/14/21 08:23 Labs: Abnormal Lab Results - Last 24 Hours (Table) 10/15/21 Range/Units 06:02 POC Glucose (mg/dL) 114 H (75-99) mg/dL Microbiology - Last 24 Hours (Table) 10/13/21 03:20 Gram Stain - Final Sputum Sputum Culture - Final - Imaging and Cardiology Chest x-ray: report reviewed Assessment and Plan Assessment: Altered mental status secondary to metabolic encephalopathy, ruled out inter cranial lesions Acute hypoxic respiratory failure secondary to COVID-19 pneumonia, still requiring tracheostomy and CPAP Status post tracheostomy and PEG tube placement Sepsis secondary to UTI and COVID-19 pneumonia, resolved with treatment Hypotensive, was requiring pressure support Breakthrough seizure, history of previous seizures Unstageable sacral pressure ulcer Cardiomyopathy, EF of 30-35% Acute kidney injury, improved with treatment History of coronary artery disease history of pulmonary embolism History 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 left foot drop Status post permanent pacemaker History of glaucoma but surgical intervention Full code Plan: She continues to require tracheostomy, attempting to wean from t-piece at 50% to trach collar, following pulmonary recommendations Antibiotic, vanco, and antifungal treatment for pneumonia per infectious disease recommendations Continue tube feedings, following dietitian recommendations Continue current medication regimen Continue monitoring her mental status for any changes Continue Wound care for unstageable sacral pressure wound Still waiting for insurance approval for transfer to long-term acute care Further recommendations to come based on patient's clinical course Time with Patient: Greater than 30 <Garth Auguste - Last Filed: 10/22/21 19:36> Subjective I have personally seen and examined the patient, reviewed the documentation and agree with the assessment and plan as written. Number of minutes spent on the visit: Greater than 15. Objective - Vital Signs Vital signs: Vital Signs Temp 98.0 F 10/22/21 12:17 Pulse 94 10/22/21 12:17 Resp 18 10/22/21 12:17 BP 114/64 10/22/21 12:17 Pulse Ox 93 L 10/22/21 12:17 Intake & Output 10/22/21 10/22/21 10/23/21 06:59 18:59 06:59 Intake Total 1200 960 Output Total 1 1 Balance 1199 959 Weight 55 kg Intake: Oral 0 Tube Feeding 1200 960 Output: Stool 1 1 Other: Voiding Method Diaper Bedpan Diaper # Voids 2 1 # Bowel Movements 1 ABP, PAP, CO, CI - Last Documented Arterial Blood Pressure 123/58 - Labs CBC & Chem 7: 10/22/21 06:37 10/22/21 06:37 Labs: Abnormal Lab Results - Last 24 Hours (Table) 10/21/21 10/22/21 10/22/21 Range/Units 23:49 06:37 06:37 RBC 2.92 L (4.10-5.20) X 10*6/uL Hgb 8.8 L (12.0-15.0) g/dL Hct 29.6 L (37.2-46.3) % MCV 101.4 H (80.0-97.0) fL MCHC 29.7 L (32.0-37.0) g/dL RDW 15.2 H (11.5-14.5) % Eosinophils # 0.45 H (0.04-0.35) X 10*3/uL Carbon Dioxide 27.6 H (20.0-27.5) mmol/L BUN 34.5 H (9.0-27.0) mg/dL Creatinine 0.5 L (0.6-1.5) mg/dL BUN/Creatinine Ratio 69.00 H (12.00-20.00) Ratio POC Glucose (mg/dL) 130 H (75-99) mg/dL 10/22/21 10/22/21 Range/Units 11:56 18:02 RBC (4.10-5.20) X 10*6/uL Hgb (12.0-15.0) g/dL Hct (37.2-46.3) % MCV (80.0-97.0) fL MCHC (32.0-37.0) g/dL RDW (11.5-14.5) % Eosinophils # (0.04-0.35) X 10*3/uL Carbon Dioxide (20.0-27.5) mmol/L BUN (9.0-27.0) mg/dL Creatinine (0.6-1.5) mg/dL BUN/Creatinine Ratio (12.00-20.00) Ratio POC Glucose (mg/dL) 137 H 108 H (75-99) mg/dL
--- NOTE | 2021-10-15 15:03 | P.PN ---
Subjective Progress Note Date: 10/15/21 CHIEF COMPLAINT: COVID-19 pneumonia HISTORY OF PRESENT ILLNESS: Patient remains in the ICU currently on trach piece. Patient is status post tracheostomy and PEG tube placement on 09/23/21. Patient is tolerating tube feedings. PHYSICAL EXAM: VITAL SIGNS: Reviewed. GENERAL:no acute distress. HEENT: Moist buccal mucosa. Head is atraumatic, normocephalic. Tracheostomy site clean and intact. ABDOMEN: Soft. Nondistended. PEG tube site clean dry and intact. Bolster at 3cm NEUROLOGIC: awake ASSESSMENT: 1. Acute hypoxic respiratory failure secondary to COVID-19 pneumonia requiring mechanical ventilation 2. Severe protein calorie malnutrition PLAN: -Continue tube feedings -Continue ICU management -Continue supportive care Physician Supervisor Air Conditioning Installer note has been reviewed by physician. Signing provider agrees with the documented findings, assessment, and plan of care. Objective - Vital Signs Vital signs: Vital Signs Temp 97.8 F 10/15/21 12:00 Pulse 89 10/15/21 14:00 Resp 12 10/15/21 14:00 BP 165/82 10/15/21 14:00 Pulse Ox 95 10/15/21 14:00 Intake & Output 10/14/21 10/15/21 10/15/21 18:59 06:59 18:59 Intake Total 1450 1250 680 Output Total 1535 1380 620 Balance -85 -130 60 Weight 57.7 kg 57.7 kg Intake: IV 240 260 140 Sodium Chloride 0.9% 1, 240 260 140 000 ml @ 20 mls/hr IV . Q24H [facility] Rx#:[id number] Intake, IV Titration 200 Amount Magnesium Sulfate-D5w Pmx 200 1 gm In Dextrose/Water 1 100ml.bag @ 100 mls/hr IVPB Q1H [facility] Rx#: [id number] Tube Feeding 840 900 540 Other 170 90 Output: Urine 1535 1380 620 Other: Voiding Method Indwelling Catheter Indwelling Catheter Indwelling Catheter ABP, PAP, CO, CI - Last Documented Arterial Blood Pressure 123/58 - Labs CBC & Chem 7: 10/14/21 08:23 10/14/21 08:23 Labs: Abnormal Lab Results - Last 24 Hours (Table) 10/15/21 Range/Units 06:02 POC Glucose (mg/dL) 114 H (75-99) mg/dL Microbiology - Last 24 Hours (Table) 10/13/21 03:20 Gram Stain - Final Sputum Sputum Culture - Final
--- NOTE | 2021-10-15 21:21 | P.PN ---
Subjective Progress Note Date: 10/15/21 Principal diagnosis: Pneumonia pressure ulcer and multiple antibiotic allergies Patient is a 51-year-old female presenting to the hospital on September 10 for mental status changes patient did have a evidence of COVID-19 infection, with respiratory failure requiring intubation also with E. coli UTI and the patient did have multiple antibiotic allergies. The patient is status post tracheostomy and PEG tube placement on 09/23/2021 On today's evaluation that is to to 10/15/2021, patient remains to be afebrile, the patient is hemodynamically stable not requiring pressor support, the patient is breathing comfortably on the trach collar, no purulent secretions through the ET or diarrhea has been reported by the nursing staff, patient is tolerating tube feeds Objective - Vital Signs Vital signs: Vital Signs Temp 98.2 F 10/15/21 08:00 Pulse 92 10/15/21 09:00 Resp 34 H 10/15/21 09:00 BP 108/62 10/15/21 09:00 Pulse Ox 98 10/15/21 09:00 Intake & Output 10/14/21 10/15/21 10/15/21 18:59 06:59 18:59 Intake Total 1450 1250 220 Output Total 1535 1380 90 Balance -85 -130 130 Weight 57.7 kg Intake: IV 240 260 40 Sodium Chloride 0.9% 1, 240 260 40 000 ml @ 20 mls/hr IV . Q24H [facility] Rx#:[id number] Intake, IV Titration 200 Amount Magnesium Sulfate-D5w Pmx 200 1 gm In Dextrose/Water 1 100ml.bag @ 100 mls/hr IVPB Q1H [facility] Rx#: [id number] Tube Feeding 840 900 180 Other 170 90 Output: Urine 1535 1380 90 Other: Voiding Method Indwelling Catheter Indwelling Catheter Indwelling Catheter ABP, PAP, CO, CI - Last Documented Arterial Blood Pressure 123/58 - Exam GENERAL DESCRIPTION: Middle-aged female, no distress. No tachypnea or accessory muscle of respiration use. LUNGS: Unlabored breathing. Decreased breath sound at the base. No wheeze or crackle. HEART: S1, S2, regular rate and rhythm. No loud murmur ABDOMEN: Soft, no tenderness , EXTREMITIES: No edema of feet. - Labs CBC & Chem 7: 10/14/21 08:23 10/14/21 08:23 Labs: Abnormal Lab Results - Last 24 Hours (Table) 10/14/21 10/15/21 Range/Units 11:22 06:02 POC Glucose (mg/dL) 158 H 114 H (75-99) mg/dL Assessment and Plan (1) Pneumonia Current Visit: Yes Status: Acute Code(s): J18.9 - PNEUMONIA, UNSPECIFIED ORGANISM SNOMED Code(s): 179257096 (2) Allergy to multiple antibiotics Current Visit: Yes Status: Acute Code(s): Z88.1 - ALLERGY STATUS TO OTHER ANTIBIOTIC AGENTS SNOMED Code(s): 152449877 (3) COVID-19 Current Visit: Yes Status: Acute Code(s): U07.1 - COVID-19 SNOMED Code(s): 852991347 Plan: 1-patient with stage III sacral pressure ulcer as well as states 3 pressure ul cer to the upper back area, local wound care with the medahoney followed by moist dressing and keep the area off the pressure, left elbow pressure ulcer stage II with no cellulitis local wound care with a dry with Aquacel silver dressing and keep the area off the pressure 2-Patient with acute respiratory failure which is multifactorial in this patient who did have a covid19 pneumonia and a concern for possible secondary bacterial pneumonia , patient has completed a course of antibiotic therapy and is currently doing well off antibiotics and no further fever has been recorded 3-patient sputum did grow Radha, could be colonizer versus oropharyngeal candidiasis, the patient has completed her course of Eraxis.
[2021-10-16] MEDS: LORazepam 2 MG/ML INJ IV SCH ×5 (00:39→23:13)
[2021-10-16] MEDS: HYDROmorphone 1 MG/ML 1 ML SYRINGE IVP SCH ×4 (04:59→20:31)
[2021-10-16 05:10] LABS: Basophils % (A) 1 %; Eosinophils # (A) 0.3 k/uL (0-0.7); Eosinophils % (A) 4 %; HCT 30.2 % (34.0-46.0); HGB 9.6 gm/dL (11.4-16.0); Hypochromasia Slight; Lymphocytes # (A) 1.1 k/uL (1.0-4.8); Lymphocytes % (A) 14 %; MCHC 31.7 g/dL (31.0-37.0); Macrocytosis Slight; Mean Platelet Volume 7.5; Monocytes # (A) 0.4 k/uL (0-1.0); Monocytes % (A) 6 %; Neutrophils # (A) 5.6 k/uL (1.3-7.7); Neutrophils % (A) 75 %; Platelet Count 453 k/uL (150-450); RBC 2.99 m/uL (3.80-5.40); RDW 14.7 % (11.5-15.5); WBC 7.5 k/uL (3.8-10.6)
[2021-10-16 05:25] LABS: ALT 42 U/L (4-34); AST 38 U/L (14-36); African American GFR (CKD) >90 (>60 ml/min/1.73 sqM); Albumin 3.3 g/dL (3.5-5.0); Alkaline Phosphatase 86 U/L (38-126); Anion Gap 8 mmol/L; Blood Urea Nitrogen 32 mg/dL (7-17); Calcium 9.4 mg/dL (8.4-10.2); Carbon Dioxide 32 mmol/L (22-30); Chloride 97 mmol/L (98-107); Glucose 117 mg/dL (74-99); Non-African American GFR(CKD) >90 (>60 ml/min/1.73 sqM); Potassium 4.8 mmol/L (3.5-5.1); Sodium 137 mmol/L (137-145); Total Bilirubin 0.6 mg/dL (0.2-1.3); Total Protein 7.1 g/dL (6.3-8.2)
[2021-10-16] MEDS: PANTOPRAZOLE 40 MG/10 ML VIAL IV SCH (08:00)
[2021-10-16] MEDS: CHOLECALCIFEROL 125 MCG (5000 IU) TABLET PO SCH (08:01)
[2021-10-16] MEDS: QUEtiapine 100 MG TAB PO SCH ×2 (08:02→20:07)
[2021-10-16] MEDS: carBAMazepine 200 MG TAB PO SCH ×3 (08:02→20:07)
[2021-10-16] MEDS: METOPROLOL TARTRATE 25 MG TAB PO SCH ×2 (08:02→20:07)
[2021-10-16] MEDS: APIXABAN 5 MG TAB PO SCH ×2 (08:02→20:07)
--- NOTE | 2021-10-16 10:46 | P.PN ---
Subjective Progress Note Date: 10/16/21 Principal diagnosis: Respiratory failure. Reevaluated today on 09/18/21, patient remains in the ICU, intubated and mechanically ventilated. Patient is not making any significant neurological improvement. She has been off sedation for few days, yesterday we started the patient only on Precedex, and that's mostly to keep her synchronous with the ventilator. Again her mental status is basically about the same, and she is not showing much improvement. She opens eyes slightly to deep painful stimuli, but no purposeful movement and no responses to verbal stimuli. She is on assist control rate of 32 tidal volume 325 FiO2 was 50% and PEEP was 8 however I cut down her FiO2 to 45%. Patient is receiving enteral feeding, vital AF at 34 mL per hour. ABG today showed a pO2 of 107 pCO2 44 pH of 7.46. Basic metabolic profile is normal WBC count is 7.6 hemoglobin is 9.5. No significant metabolic abnormality to explain her encephalopathy at this point. Patient is still being followed by neurology on the case. Patient is still being treated for coronary virus infection, and UTI on admission secondary to E. coli. 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 No acute process was noted. Patient remains on seizure medications as per neurology including Keppra and Tegretol. EEG showed slowing/moderate degree of slowing suggestive of generalized cerebral dysfunction. This is seen with toxic metabolic encephalopathy. Reevaluated today on 09/19/21, patient remains in the ICU, intubated and mechanically ventilated, she is on assist control rate of 32 tidal volume of 325 FiO2 45% and PEEP of 8. Patient had to be placed on propofol yesterday at 50 mcg/kg/m, she is on IV fluid at 50 mL per hour. ABG showed a pO2 of 78 pCO2 of 47 pH of 7.44. Chest x-ray is basically about, no change. WBC count is 9.2 hemoglobin is 10.3. Electrolytes are normal. Again the patient had to be placed back on propofol because she was getting agitated, restless, and not syn chronous with the ventilator yesterday. Remains on propofol today, and patient is not responding to any stimuli. Hence I'm keeping her on propofol, I believe the patient will eventually require tracheostomy and PEG tube placement unless CODE STATUS is changed to comfort care. Chest x-ray is basically showing no significant abnormalities. She does have mild pulmonary vascular congestion. Reevaluated today on 09/20/21, patient remains in the ICU, intubated and mechanically ventilated. She is on assist control rate of 32 tidal volume 325 FiO2 is 45%, PEEP is at 8. Patient is back on propofol, intermittently has been receiving Dilaudid, patient becomes at times agitated, and asynchronous with the ventilator, early in the week, I was able to hold sedation for a number of days, however the patient remained unresponsive to verbal stimuli, and apparently she had significant toxic metabolic encephalopathy. CT of the brain was nondiagnostic. Patient was seen by neurology on consultation, and still believe that this is a occipital metabolic encephalopathy picture. Patient is on propofol now at 50 mcg/kg/m, not requiring any other sedatives or narcotics. Patient has been feeding/enteral feeding vital AF at 34 mL per hour. ABG today showed a pO2 of 101 pCO2 47 pH of 7.44. Chest x-ray continues to show retrocardiac density likely atelectasis, otherwise no significant findings on the chest x-ray Progress note dated 09/21/2021. This is a 51-year-old female, who was admitted to the hospital on September 10. She came in with mental status changes, sepsis, and hypernatremia. She came to the intensive care unit on September 10, and was intubated for respiratory failure on 09/11/2021. The patient did test positive for coronavirus. She remains on mechanical ventilator. The patient is on the volume assist control mode, rate 32, tidal volume 325, FiO2 45%, and PEEP of 8. Blood gases show pO2 of 91, pCO2 49, and pH is 7.45. The patient's getting half-normal saline at 50 mL an hour, propofol at 50 mcg/kg/m, and vital AF at 34 mL an hour, which is goal. White count 10.2, hemoglobin 9.7, hematocrit 30.4, and platelet count was normal. Sodium 139, potassium 3.5, chlorides 104, CO2 32, anion gap 3, BUN 34, and creatinine 0.65. Microbiologic studies show evidence of Escherichia coli in the urine from September 10, and presumptive staph aureus in the sputum from August 30 0. The chest x-ray shows left lower lobe atelectasis and/or infiltrates. The patient is currently on antifungals, and aztreonam. The infectious disease doctor is currently on the case. Progress note dated 09/22/2021. 51-year-old female who was admitted to the hospital on 09/10/2021. She came in with mental status changes, sepsis, and hypernatremia. She came to the intensive care unit on September 10, and was intubated for respiratory failure on 09/11/2021. She did test positive for coronavirus. She remains on the mechanical ventilator. The plan is for a tracheostomy and PEG tube placement today by one of the surgeons. The patient also had a right radial arterial line placed by our team. Currently, she is on the volume assist control mode, rate 32, tidal volume 325, FiO2 45%, PEEP of 8. Arterial blood gases show pO2 of 88, pCO2 46, and a pH is 7.48. The patient is on propofol at 40 mcg/kg/m, saline at 20 mL an hour, half-normal saline at 50 mL an hour, and vital, at 46 mL an hour, which is goal. Obviously, tube feeds on hold for anticipated surgery today. White count 9.3, hemoglobin 8.8, hematocrit 27.3, and platelet count 269,000. Sodium 139, potassium 3.4, chlorides 104, CO2 33, anion gap 2, BUN 26, and creatinine 0.54. AST 500, ALT 166. An ultrasound the right upper quadrant will be ordered. Chest x-ray shows persistent left lower lobe atelectasis and/or inf iltrate. Progress note dated 09/23/2021. This is a 51-year-old female, again seen in room 254. She's now been in the hospital for 13 days. She was admitted on 09/10/2021. She came in with mental status changes, and sepsis. She came to the intensive care unit on September 10, and was intubated respiratory failure on 09/11/2021. She did test positive for coronavirus. She remains on the mechanical ventilator. The patient was to have a tracheostomy and PEG tube placement performed. It was to be done yesterday but for some reason did not take place. She remains on the volume assist control, rate 32, tidal volume 325, FiO2 45%, and PEEP of 8. Blood gases show pO2 80, pCO2 39, pH is 7.48. The patient's getting saline at 20 mL an hour, half-normal saline at 50 mL an hour, and tube feeds are currently on hold. White count 10, hemoglobin 9.3, hematocrit 29.2, and platelet count 341,000. Sodium 139, potassium 3.6, chlorides 106, CO2 27, anion gap 6, BUN 23, and creatinine 0.59. Albumin is 2.4. Microbiology from September 10, shows a urine that was positive for an E. coli, and a sputum from September 17, it is positive for Staphylococcus aureus. The patient is currently on vancomycin and Eraxis. Progress note dated 09/24/2021. 51-year-old female, again seen in room 254. The patient underwent tracheostomy and PEG tube placement yesterday, on September 23. The patient is now been in the hospital for 14 days. The patient was admitted on 09/10/2021. She did test positive for coronavirus. The patient was intubated on 09/11/2021, for respiratory failure. Currently, she is on volume assist control, rate 32, tidal volume 325, FiO2 40%, and PEEP of 8. Arterial blood gases show pO2 of 79, pCO2 39, pH is 7.45. The patient's getting half-normal saline at 50 mL an hour. She is on propofol at 40 mcg/kg/m. Tube feedings are still on hold. She's getting an antifungal, as well as Levaquin. Labs include a white count 9.1, hemoglobin 9.5, hematocrit 29.5 and platelet count which is normal. Sodium 133, potassium 3.4, chlorides 101, CO2 26, anion gap 6, BUN 19, and creatinine 0.53. AST is 229, and ALTs 159. Microbiologic studies are positive for a urine sample from September 10, for E. coli, and methicillin sensitive staph aureus in the sputum from September 17. Chest x-ray shows patchy bibasilar and bilateral infiltrates. Progress note dated 09/25/2021. 51-year-old female again seen in room 254. She underwent tracheostomy and PEG tube placement on September 23. The patient has been in the hospital now for 15 days. She remains on the ventilator. She is on the volume assist control mode, rate 32, tidal volume 325, FiO2 40%, PEEP of 8. Blood gases show pO2 of 95, pCO2 51, and pH is 7.44. The patient's getting half-normal saline at 50 mL an hour, and currently, propofol is off. She is also on vital 1.2 at 46 mL an hour, which is goal. She remains on Levaquin for a sputum positive for methicillin sensitive staph aureus. Also, the patient is on an antifungal as per infectious diseases. Because of her poor mental status, we will repeat a computed tomography scan of the brain with contrast. Her hoping to be able to get this patient to a long-term acute care facility or specialized nursing facility. White count 9.9, hemoglobin 9, hematocrit 26.8 and platelet count 333,000. Sodium 137, potassium 3.9, chlorides 102, CO2 31, anion gap 4, BUN 18, creatinine 0.53. Chest x-ray shows a tracheostomy tube in the midline. There is diffuse bilateral infiltrates, with worsening in the retrocardiac area. Progress note dated 09/26/2021. This is a 51-year-old female again seen in room 254. She underwent tracheostomy and PEG tube placement on September 23. She's now been in the hospital for 16 days. She remains on the ventilator. The patient was admitted on 09/10/2021. She did test positive for coronavirus. The patient was intubated on 09/11/2021, for respiratory failure. She remains on the ventilator. She is on the volume assist control mode, rate 32, tidal volume 325, FiO2 40%, to be reduced down to 35%, and PEEP of 8. Blood gases show pO2 of 111, pCO2 42, and a pH is 7.52. The patient is receiving saline at 20 mL an hour, half-normal saline at 50 mL an hour, and vital AF at 57 mL an hour, which is goal. The patient remains on Levaquin and Eraxis. The patient's chest x-ray is unchanged. Recent repeat brain CT was negative. White count 8.7, hemoglobin 8.8, hematocrit 27.6, and platelet count 330,000. Sodium 138, potassium 3.6, chlorides 102, CO2 34, anion gap 2, BUN 22, creatinine 0.38. Progress note dated 09/27/2021. 51-year-old female, again seen in room 254. The patient underwent tracheostomy and PEG tube placement, on 09/23/2021. She's now been in the hospital for 17 days. She remains on the ventilator. She was initially admitted back on 09/10/2021. She did test positive for coronavirus. She was intubated on 09/11/2021, for worsening respiratory failure. She remains on the mechanical ventilator. The patient is on the volume assist control mode, rate 32, tidal volume 325, FiO2 35%, and PEEP of 8. Blood gases show pO2 of 82, pCO2 40, and pH is 7.49. She's getting saline at 20 mL an hour, half-normal saline at 50 mL an hour, and vital AF at 57 and hour, which is goal. We are going to DC her Decadron. She been on it since the . White count 8.3, hemoglobin 9.5, hematocrit 30, and platelet count 356,000. Sodium 138, potassium 4, chlorides 103, CO2 31, anion gap 4, BUN 22, creatinine 0.45. Microbiology shows a staph aureus from September 17, and the sputum. It's a methicillin sensitive staph aureus. The patient remains on Eraxis and Levaquin. Chest x-ray is essentially unchanged. Reevaluated today on 10/09/2021, patient remains in the ICU, remains on ventilatory support, she is on pressure control of 22 inspiratory time of 0.9 FiO2 40% PEEP of 5. ABG today showed a pO2 of 131 pCO2 of 31 pH of 7.52. Patient is not requiring any pressors, she is not requiring any drips, no sedation is needed, she is still receiving tube feeding vital HPI 22 mL per hour. Patient had a relatively uneventful night, and we plan to place the patient back on a mode of weaning, and I plan to place her back either on a T piece orotracheal collar today. No ABG was done today. No chest x-ray was done. Chest x-ray from yesterday showed basically no change. Tracheostomy is intact. Reevaluated today on 10/10/2021, patient remains on TP, over the last 24 hours, tolerating weaning very well, seems to be quite agitated, and would like to go home. Patient is getting more agitated with the t piece itself, although she seems to be very comfortable and her O2 saturation is high in the 90s. Went ahead and recommended decannulation of the trach, and I removed the tracheostomy at bedside, and the sutures around the tracheostomy were also removed. Patient felt much better and she was switched to a nasal cannula. WBC count today is 6.6 hemoglobin 8.1 electrodes. Normal except for low potassium be corrected accordingly. Went ahead and discontinued his Eraxis, patient is on vancomycin, and hopefully that will be discontinued by infectious disease today on rounds. No chest x-ray was done today. But I reviewed the chest x-ray from yesterday Reevaluated today on 10/11/2021, patient remains in the ICU, yesterday I D cannulated the patient, however few hours later, the patient developed left lower lobe atelectasis/collapse, and she was having hard time breathing, she could not clear any of her secretions. Patient was very weak, and she had a very ineffective cough. I was notified about this patient by the nurse and by respiratory therapy, I recommended that the patient gets her trach placed back again. And this time she is to have a size 6 a size 7 Shiley tube placed by respiratory therapy. Indeed the patient had a size 6 placed, placed back on mechanical ventilation overnight, since she was agitated we added Precedex overnight. Remains on the vent overnight, and she is on Precedex. Her ABG today showed a pO2 of 105, pCO2 34 pH of 7.51. This was on assist control mode of mechanical ventilation, she was on rate of 28 tidal volume 400 FiO2 40% and PEEP of 8. Then I recommended that we give the patient today another trial on trach collar but she is to be suctioned if she develops any shortness of breath or she develops worsening secretions. Patient remains on vital AF at 60 mL/h she was on a very low dose of norepinephrine at 0.02 which I have discontinued this morning. Chest x-ray is showing dramatic improvement in her left lower lobe atelectasis/collapse. But it is not fully completely resolved. Nonetheless the patient continues to have minimal atelectasis at the left base. WBC count today is 7 hemoglobin 7.2 electrolytes are normal renal profile is normal. Progress note dated 10/12/2021. The patient is again seen in room 254. I saw her last on September 27. The patient was admitted to the hospital on September 10. She came in with mental status changes, seizures, and acute kidney injury, as well as coronavirus infection. The patient came to the intensive care unit on 09/11/2021, and was intubated on the same day. The patient had a tracheostomy and PEG tube placed on 09/23/2021. The patient remains on the ventilator. She has had some weaning with trach collar. Currently, she is on the volume assist control, rate 28, tid al volume 400, FiO2 40%, and PEEP of 8. Blood gases show a PaO2 of 166, pCO2 37, and pH is 7.47. That was on 50% FiO2. The patient's on saline at 100 mL an hour, and Precedex at 0.2 mcg/kg/h. We are going to give the patient Ativan, Seroquel, and Dilaudid. We will discontinue the Precedex. We'll make sure the fluids were cut back, and give the patient Lasix 40 mg IV push. The only lab data from today include a glucose of 115, and blood gases as mentioned. Chest x-ray shows some mild interstitial changes, and a retrocardiac and left basilar opacity. Microbiology is reviewed. And there is no recent culture data of significance. Progress note dated 10/13/2021. Patient is again seen in room 254. The patient is been in the hospital now for 33 days. The patient was admitted to the hospital on September 10. She came in with mental status changes, acute kidney injury, and seizures. She also tested positive for coronavirus infection. She came to the intensive care unit on September 11, and was intubated on 09/11/2021. The patient had a tracheostomy and PEG tube placed on 09/23/2021. Currently, she is on volume assist control, with a rate of 28, tidal volume 400, FiO2 40%, and PEEP of 8. No blood gases were done today. The patient's on saline at 20 mL an hour, and vital AF at 60 mL an hour, which is goal. Yesterday, she spent from 8:30 AM to noon, on CPAP, and from noon, to 6:30 PM on trach collar. We will attempt to do the same thing today. Laboratory data includes a white count 6.1, hemoglobin 7.4, hematocrit 23.4, and platelet count 348,000. Sodium, potassium, chloride, CO2, all normal. Anion gap is normal. BUN 19, creatinine 0.42. Albumin is 2.6. Chest x-ray shows diffuse bilateral infiltrates, and is unchanged. Progress note dated 10/14/2021. Patient is again seen in room 254. The patient has not been here in the hospital for 34 days. She was admitted back on September 10. She came in with mental status changes, acute kidney injury, and seizures. She also tested positive for coronavirus infection. She came to the intensive care unit on September 11, and was intubated on the same day. She had a tracheostomy and PEG tube placement on 09/23/2021. Currently, she is on T-piece, at 50%. She's been on that since 11:00 AM yesterday. In addition, the patient's on vital AF at 60 mL an hour. She's getting saline at 20 mL an hour. Today's laboratory includes a white count 7.7, hemoglobin 8.9, hematocrit 28.2, and platelet count 429,000. Sodium 138, potassium 4.2, chlorides 101, CO2 32, anion gap 5, BUN 20, creatinine 0.4. No chest x-ray today. Progress note dated 10/15/2021. Patient is again seen in room 254. The patient is now been in the hospital for 35 days. She was admitted back on September 10, and came in with mental status c hanges, acute kidney injury, and seizures. She also tested positive for coronavirus infection. She came to the intensive care unit on September 11, and was intubated on the same day. She underwent tracheostomy and PEG tube placement on 09/23/2021. She has been on 50% T-piece for about 2 days now. The patient is receiving vital HP at 60 mL an hour, which is goal, saline at 20 mL an hour, and is currently not getting any sedation. The patient is receiving Seroquel, Ativan, and Dilaudid. We are going to cut back on the Ativan and Dilaudid. No new labs today. Labs from yesterday have been reviewed. Chest x- ray continues to show diffuse bilateral infiltrates, which are unchanged from the previous day. Progress note dated 10/16/2021. The patient is again seen in room 254. She's now been in the hospital for 36 days. She was admitted back on September 10, he came in with mental status changes, seizures, and acute kidney injury. She also tested positive for coronavirus infection. She came to the intensive care unit on September 11, and was intubated on September 11. Because of failure to wean from mechanical ventilation, she underwent tracheostomy and PEG tube placement on 09/23/2021. The patient has been on 50% T piece for about 2-1/2 days now. The patient is also receiving saline at 20 mL an hour, and vital AF at 60 mL an hour, which is goal. The patient is still too weak to be decannulated, and also, having too many secretions to be decannulated. Appetite labs today include a white count 7.5, hemoglobin 9.6, hematocrit 30.2, and platelet count 453,000. Sodium 137, c alcium 4.8, chlorides 97, CO2 32, anion gap 8, BUN 32, and creatinine 0.44. Albumin is 3.3. No chest x-ray today. No blood gas today. Objective - Vital Signs Vital signs: Vital Signs Temp 98.2 F 10/16/21 08:00 Pulse 87 10/16/21 09:00 Resp 31 H 10/16/21 09:00 BP 107/62 10/16/21 09:00 Pulse Ox 97 10/16/21 09:00 Intake & Output 10/15/21 10/16/21 10/16/21 18:59 06:59 18:59 Intake Total 1000 1170 380 Output Total 1020 755 330 Balance -20 415 50 Weight 57.7 kg 58.5 kg Intake: IV 220 240 80 Sodium Chloride 0.9% 1, 220 240 80 000 ml @ 20 mls/hr IV . Q24H [facility] Rx#:[id number] Tube Feeding 780 840 300 Other 90 Output: Urine 1020 755 330 Other: Voiding Method Indwelling Catheter Indwelling Catheter Indwelling Catheter ABP, PAP, CO, CI - Last Documented Arterial Blood Pressure 123/58 - Exam No acute distress, currently off of all sedation, much more awake and alert, with a midline tracheostomy, currently on T-piece at 50%. HEENT examination is grossly unremarkable. Neck supple. Full range of motion. No adenopathy thyromegaly or neck vein distention. Midline tracheostomy is noted. Cardiovascular examination reveals regular rhythm rate. S1-S2 normal. No S3 or S4. No discernible murmur noted. Heart rate 87 bpm. Heart sounds are distant. Lungs reveal bilateral expiratory rhonchi and wheezes. No crackles. Breath sounds are equal bilaterally. Saturations are 97%. Breath sounds are improved. Abdomen soft, without bowel sounds. No masses. PEG tube is noted. Extremities are intact. No cyanosis or clubbing. Trace edema is noted. Skin is without rash or lesion. Neurologic examination is much improved. The patient's awake and alert. - Labs CBC & Chem 7: 10/16/21 04:55 10/16/21 04:55 Labs: Abnormal Lab Results - Last 24 Hours (Table) 10/16/21 10/16/21 Range/Units 04:55 04:55 RBC 2.99 L (3.80-5.40) m/uL Hgb 9.6 L (11.4-16.0) gm/dL Hct 30.2 L (34.0-46.0) % MCV 101.0 H (80.0-100.0) fL Plt Count 453 H (150-450) k/uL Chloride 97 L (98-107) mmol/L Carbon Dioxide 32 H (22-30) mmol/L BUN 32 H (7-17) mg/dL Creatinine 0.44 L (0.52-1.04) mg/dL Glucose 117 H (74-99) mg/dL AST 38 H (14-36) U/L ALT 42 H (4-34) U/L Albumin 3.3 L (3.5-5.0) g/dL Microbiology - Last 24 Hours (Table) 10/13/21 03:20 Gram Stain - Final Sputum Sputum Culture - Final Assessment and Plan Assessment: Acute hypoxemic respiratory failure secondary to coronavirus associated pneumonia, status post intubation and mechanical ventilation on 09/11/2021. Status post tracheostomy and PEG tube placement on 09/23/2021. Acute mental status changes, secondary to toxic/metabolic encephalopathy, much improved. Methicillin sensitive staph aureus pneumonia, left lower lobe, treated. Dehydration, on admission, resolved. History of seizure disorder. Prior history of pulmonary embolism. Paroxysmal atrial fibrillation. Cardiomyopathy with ejection fraction of 30-35%. Status post pacemaker implantation. 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 Hypothyroidism. CAD. History of CVA in 2007. History of recurrent E. coli urinary tract infections, treated. History of psoriasis. History of sacral/coccygeal decubitus ulcer. Plan: Plan dated 09/21/2021. Because of the patient's overall poor status, and the fact that she still is a full code, surgery will be consulted for possible tracheostomy and PEG tube placement. We will continue to follow make recommendations where appropriate. Again, prognosis is very poor. She remains on mechanical ventilator. She remains on appropriate antibiotics. Infectious diseases is following. We will continue to follow make recommendations where appropriate. Plan dated 09/22/2021. The patient is going to hopefully have a tracheostomy and PEG tube placement today. The patient remains on propofol at 40 mcg/kg/m. We did replace the arterial line. The previous arterial line was poorly functional. She had a right radial arterial line placed today by our team. A previous urine culture from September 10 showed Escherichia coli. Sputum from September 17 showed Radha, and presumptive Staphylococcus aureus. The patient remains on an antifungal, and vancomycin as per infectious diseases. Mariam follow and make recommendations where appropriate. Prognosis is certainly guarded. Plan dated 09/23/2021. The patient had methicillin sensitive staph aureus in the sputum and is currently on vancomycin. That can be changed to something other than vancomycin. The patient should have a tracheostomy and PEG tube placement today. It was to be done yesterday. The patient is currently off all sedation. Tube feedings on hold. Oxygenation and ventilation are excellent. We will continue to follow make recommendations where appropriate. Overall prognosis remains very guarded. Most recent brain CT shows old infarcts, with nothing acute and no major change. Plan dated 09/24/2021. The patient underwent tracheostomy and PEG tube placement yesterday, 09/23/2021. She remains on the mechanical ventilator. Labs, x-rays, and medications are all reviewed. The staph. in the sputum, was methicillin sensitive. Hence, vancomycin was discontinued, and she was started on Levaquin. She remains on the antifungal. We will continue to follow make recommendations where appropriate. We'll attempt to wean her off the propofol. Additional recommendations and suggestions are coming. Prognosis is guarded. Plan dated 09/25/2021. We'll attempt another CAT scan of the brain with contrast, because of the patient's poor mental status. Two prior CT scans did not show anything acute. The patient remains on Levaquin, and Eraxis. The patient remains off of all. We will continue to follow make recommendations where appropriate. Overall prognosis remains guarded. Plan dated 09/26/2021. Repeat brain CT with contrast, was negative for anything acute. The patient's mental status remains poor. The patient is currently off all sedatives. The patient remains on antibiotic and antifungal as above. The sputum was positive for methicillin sensitive staph aureus. Fungal cultures are currently negative. The patient's chest x-ray is unchanged. The FiO2 was reduced on the 35%. Labs, x-rays, and medications are all reviewed. We will continue to follow and make recommendations where appropriate. Prognosis is certainly guarded. Plan dated 09/27/2021. The patient's repeat brain CT with contrast, was negative for anything acute. The patient's overall mental status remains very poor. The patient will have a daily interruption of sedation, and a spontaneous breathing trial today. We will DC the Decadron, as the patient has been on it since September 12. The patient is currently on Levaquin for a methicillin sensitive staph aureus that was discovered in the sputum. He also remains on the antifungal, Eraxis. We will continue to follow make recommendations where appropriate. The patient's labs, x-rays, and medications are all reviewed. Prognosis is guarded. Possible discharge to a long-term acute care facility, or a specialized nursing facility. Plan dated 10/12/2021. The patient's neurologic status is much improved. He is awake and alert. She has had some weaning along the way. Today, we will attempt to get her off of Precedex, by adding some Ativan, Seroquel, and when necessary Dilaudid. In addition, IV fluids are made at KVO. We will give the patient Lasix 40 mg IV push. Additional recommendations and suggestions are forthcoming. Prognosis is guarded. We also place the patient on some pressure support and CPAP, and will transition her to trach collar. Additional recommendations and suggestions are forthcoming. We will continue to follow make recommendations where appropriate. Prognosis is very guarded. Plan dated 10/13/2021. The patient did well yesterday on her eating, and spent about 6-1/2 hours on trach collar. The patient's currently not on any sedation whatsoever. She does get Ativan, and Seroquel, and when necessary Dilaudid. Yesterday, she was on dexmedetomidine. Labs, x-rays, and medications all all reviewed. The patient will again have additional weaning today. Prognosis is guarded. We will continue to follow her and make recommendations where appropriate. Hopefully, we can get her to a long-term acute care facility. Plan dated 10/14/2021. Currently, the patient has been receiving oxygen at 50%. She has not been on the ventilator since 11:00 in the morning yesterday. She is getting her vital AF at 60 mL an hour. She's getting saline at 20 mL an hour. She is off all sedation. We will continue to follow make recommendations were appropriate. Prognosis is guarded. The plan is to hopefully get her transferred to a long- term acute care facility by the end of the week. Plan dated 10/15/2021. The patient's Ativan and Dilaudid will be cut back. The Ativan will be 1 mg every 6 hours, and Dilaudid 1 mg every 6 hours. The patient remains on the same dose of Seroquel. Currently, she is getting saline at 20 mL an hour. She's not receiving any additional sedation. The patient is getting tube feedings at goal, which are vital HP at 60 mL an hour. I've asked respiratory to try a trach collar on this patient. She should not be decannulated this time. She is far too weak, and she still producing significant tracheobronchial secretions. She can be decannulated at a later time, after being transferred to a rehab facility, or long-term acute care. Plan dated 10/16/2021. We did cut back the patient's Ativan and Dilaudid. It did seem to help. She bit more awake and alert today. The patient continues on 50% T piece. The patient also remains on Seroquel. The patient is receiving tube feedings. She is also getting saline at 20 mL an hour. The patient is too weak to decannulate. She needs to be much stronger. In addition, the patient is producing too many secretions to be decannulated safely. We'll hoping to be able to get the patient to long-term acute care facility or rehab. Additional recommendations and suggestions are forthcoming. Labs, x-rays, and medications are reviewed. We will continue to follow make recommendations where appropr iate. Prognosis is guarded. Time with Patient: Greater than 30
[2021-10-16] MEDS: AMIODARONE 200 MG TAB PO SCH (11:31)
[2021-10-16] MEDS: SODIUM CHLORIDE 0.9% 1,000 ML IV SCH (11:32)
--- NOTE | 2021-10-16 13:02 | P.PN ---
<Godwin, - Last Filed: 10/16/21 12:53> Subjective Progress Note Date: 10/16/21 Principal diagnosis: Altered mental status Patient is a 51-year-old female presented to the emergency room with altered mental status, COVID-19 pneumonia, UTI, seizures and possible stroke. UTI and pneumonia have been treated, and sepsis resolved. 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 Patient has been in the hospital since September 10, 2021 and has had extensive evaluations and treatment. Patient has been followed by multiple consultants including intensive care/pulmonary, neurology, and surgical services. Hospitalists have been providing coverage from 09/10/2021 through 10/05/2021. Patient continues to require mechanical ventilation. Patient is status post PEG tube placement and tracheotomy placement. 10/06/21 Patient was seen and examined at bedside in the ICU. Continues to require mechanical ventilation via tracheostomy. FiO2 40%, PEEP 5, oxygen saturation 96%, blood pressure 149/82. She is alert, responds to name, and follows simple commands. Denies any acute symptoms, unable to speak, replies by shaking her head yes or no. Left-sided paralysis, right-sided weakness able to grasp fingers and wiggle toes on the right. White blood cell count 5.6, kidney fun ction improved the BUN 15, creatinine 0.3, liver enzymes continue to be elevated but improving. Plan was to discharge patient to [facility], insurance denied, awaiting clearance from social work. 10/07/21 Patient was seen and examined at bedside in ICU. Patient is resting comfortably, in no acute distress. Continues to require mechanical ventilation via tracheostomy. FiO2 40%, PEEP 5, oxygen saturation 95%, blood pressure 119/74. Patient is alert and oriented to self, able to follow simple commands. Continued left-sided paralysis, right-sided weakness. Potassium 3.3, was treated according to protocol. Kidney function remains stable, white count 7.1 today. Still waiting for insurance appeal for transfer to long-term acute care. 10/08/21 patient was seen and examined in ICU. Was up in the chair via rebecca lift, in mild distress. Oxygen saturation was declining to 70% while on trach collar. Patient was trying to say that she can't breathe and she needs help. Nurse and respiratory therapist assisted patient back on mechanical ventilation at previous settings, with improvement of oxygen saturation. Patient was alert and oriented to self.continued right-sided weakness and left-sided paralysis.potassium improved to 3.5.still awaiting insurance appeal for transfer to long-term acute care 10/09/2021 Patient was seen and examined at bedside in ICU. Resting comfortably in bed, in no acute distress. Alert and oriented to self. She was trying to say that she wants to go home. Continued right-sided weakness and left-sided paralysis. Continues to require mechanical ventilation via tracheostomy. FiO2 40% PEEP of 5. ABG was stable. Tolerating tube feeding via PEG tube. Awaiting insurance appeal for transfer to long-term [facility]. Hospitalist coverage 10/10/21-10/12/21 10/13/2021 Patient seen and examined at bedside in ICU. Patient lethargic, not answering questions, arises to touch but then falls back asleep. Spoke with nurse regarding patient's status over the weekend, furnace keeper to try to decannulate the patient, became hypoxic and needed trach replaced. Today patient is on CPAP via tracheostomy, rate of 28, tidal volume 400, FiO2 40%, and PEEP of 8. We'll continue following pulmonary's recommendations. Blood Pressure was decreased on exam, already being treated with fluid bolus. Will follow furnace keeper recommendations for pressure control. Still waiting for insurance clearance for long-term acute care transfer. 10/14/21 Patient was seen and examined at bedside in ICU. Was resting in bed, no acute distress. Awoke to name and touch, oriented to self, followed simple commands. She was trying to verbalize that she wants to home. Continued right-sided weakness, left-sided paralysis. She was weaned to a t-piece at 50%, saturating well. Has been off the ventilator more than 24 hours. We will continue to follow pulmonary recommendations. 10/15/2021 Patient was seen and examined at bedside in ICU. Resting in bed in no acute distress. Alert and oriented to self, following simple commands. Continued right-sided weakness, left-sided paralysis. Has been maintaining oxygenation with T piece at 50%. Attempting to wean to trach collar. Patient still trying to verbalize that she wants to go home. Chest x-ray shows no changes from previous exam. We'll continue following furnace keeper recommendations. 10/16/2021 Patient was seen and examined at bedside. Patient is lethargic, responds to touch falls because sleep. Did not follow commands. Continues to have right- sided weakness left-sided paralysis. Continues to require T piece of 50%. Lab results reviewed, hemoglobin stable at 9.6, slight increase of BUN and creatin ine at 32 and 0.44. Potassium and magnesium stable at 4.8 and 2.0. We'll continue to monitor kidney function for any changes. Objective - Vital Signs Vital signs: Vital Signs Temp 97.9 F 10/16/21 12:00 Pulse 96 10/16/21 12:00 Resp 57 H 10/16/21 12:00 BP 123/68 10/16/21 12:00 Pulse Ox 95 10/16/21 12:00 Intake & Output 10/15/21 10/16/21 10/16/21 18:59 06:59 18:59 Intake Total 1000 1170 540 Output Total 1020 755 430 Balance -20 415 110 Weight 57.7 kg 58.5 kg Intake: IV 220 240 120 Sodium Chloride 0.9% 1, 220 240 120 000 ml @ 20 mls/hr IV . Q24H [facility] Rx#:[id number] Tube Feeding 780 840 420 Other 90 Output: Urine 1020 755 430 Other: Voiding Method Indwelling Catheter Indwelling Catheter Indwelling Catheter ABP, PAP, CO, CI - Last Documented Arterial Blood Pressure 123/58 - Constitutional General appearance: Present: no acute distress - EENT Eyes: Present: EOMI, PERRLA - Neck Details: Tracheostomy in place, moderate amount of secretions from trach - Respiratory Respiratory: bilateral: diminished - Cardiovascular Heart rate: 60 Rhythm: regular Heart sounds: normal: S1, S2 - Peripheral pulses radial pulse Peripheral Pulses: bilateral: Normal - Gastrointestinal Gastrointestinal Comment(s): PEG tube in place General gastrointestinal: Present: normal bowel sounds, soft - Genitourinary Genitourinary Comment(s): Ambrocio catheter in place - Integumentary Integumentary: Present: normal turgor - Neurologic Neurologic: Present: focal deficits - Musculoskeletal Musculoskeletal: Present: right sided weakness, left sided weakness - Psychiatric Psychiatric Comment(s): Lethargic, arouse to touch, did not follow commands - Allied health notes Allied health notes reviewed: nursing - Labs CBC & Chem 7: 10/16/21 04:55 10/16/21 04:55 Labs: Abnormal Lab Results - Last 24 Hours (Table) 10/16/21 10/16/21 Range/Units 04:55 04:55 RBC 2.99 L (3.80-5.40) m/uL Hgb 9.6 L (11.4-16.0) gm/dL Hct 30.2 L (34.0-46.0) % MCV 101.0 H (80.0-100.0) fL Plt Count 453 H (150-450) k/uL Chloride 97 L (98-107) mmol/L Carbon Dioxide 32 H (22-30) mmol/L BUN 32 H (7-17) mg/dL Creatinine 0.44 L (0.52-1.04) mg/dL Glucose 117 H (74-99) mg/dL AST 38 H (14-36) U/L ALT 42 H (4-34) U/L Albumin 3.3 L (3.5-5.0) g/dL Microbiology - Last 24 Hours (Table) 10/13/21 03:20 Gram Stain - Final Sputum Sputum Culture - Final Assessment and Plan Assessment: Altered mental status secondary to metabolic encephalopathy, ruled out interc ranial lesions Acute hypoxic respiratory failure secondary to COVID-19 pneumonia, still requiring tracheostomy and CPAP Status post tracheostomy and PEG tube placement Sepsis secondary to UTI and COVID-19 pneumonia, resolved with treatment Hypotensive, was requiring pressure support Breakthrough seizure, history of previous seizures Unstageable sacral pressure ulcer Cardiomyopathy, EF of 30-35% Acute kidney injury, improved with treatment History of coronary artery disease history of pulmonary embolism History 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 left foot drop Status post permanent pacemaker History of glaucoma but surgical intervention Full code Plan: She continues to require tracheostomy, attempting to wean from t-piece at 50% to trach collar, following pulmonary recommendations Antibiotic, vanco, and antifungal treatment for pneumonia per infectious disease recommendations Continue tube feedings, following dietitian recommendations Continue current medication regimen Continue monitoring her mental status for any changes Continue Wound care for unstageable sacral pressure wound Still waiting for insurance approval for transfer to long-term acute care Further recommendations to come based on patient's clinical course Time with Patient: Greater than 30 <Garth Auguste - Last Filed: 10/22/21 19:34> Subjective I have personally seen and examined the patient, reviewed the documentation and agree with the assessment and plan as written. Number of minutes spent on the visit: 16. Objective - Vital Signs Vital signs: Vital Signs Temp 98.0 F 10/22/21 12:17 Pulse 94 10/22/21 12:17 Resp 18 10/22/21 12:17 BP 114/64 10/22/21 12:17 Pulse Ox 93 L 10/22/21 12:17 Intake & Output 10/22/21 10/22/21 10/23/21 06:59 18:59 06:59 Intake Total 1200 960 Output Total 1 1 Balance 1199 959 Weight 55 kg Intake: Oral 0 Tube Feeding 1200 960 Output: Stool 1 1 Other: Voiding Method Diaper Bedpan Diaper # Voids 2 1 # Bowel Movements 1 ABP, PAP, CO, CI - Last Documented Arterial Blood Pressure 123/58 - Labs CBC & Chem 7: 10/22/21 06:37 10/22/21 06:37 Labs: Abnormal Lab Results - Last 24 Hours (Table) 10/21/21 10/22/21 10/22/21 Range/Units 23:49 06:37 06:37 RBC 2.92 L (4.10-5.20) X 10*6/uL Hgb 8.8 L (12.0-15.0) g/dL Hct 29.6 L (37.2-46.3) % MCV 101.4 H (80.0-97.0) fL MCHC 29.7 L (32.0-37.0) g/dL RDW 15.2 H (11.5-14.5) % Eosinophils # 0.45 H (0.04-0.35) X 10*3/uL Carbon Dioxide 27.6 H (20.0-27.5) mmol/L BUN 34.5 H (9.0-27.0) mg/dL Creatinine 0.5 L (0.6-1.5) mg/dL BUN/Creatinine Ratio 69.00 H (12.00-20.00) Ratio POC Glucose (mg/dL) 130 H (75-99) mg/dL 10/22/21 10/22/21 Range/Units 11:56 18:02 RBC (4.10-5.20) X 10*6/uL Hgb (12.0-15.0) g/dL Hct (37.2-46.3) % MCV (80.0-97.0) fL MCHC (32.0-37.0) g/dL RDW (11.5-14.5) % Eosinophils # (0.04-0.35) X 10*3/uL Carbon Dioxide (20.0-27.5) mmol/L BUN (9.0-27.0) mg/dL Creatinine (0.6-1.5) mg/dL BUN/Creatinine Ratio (12.00-20.00) Ratio POC Glucose (mg/dL) 137 H 108 H (75-99) mg/dL
[2021-10-17] MEDS: HYDROmorphone 1 MG/ML 1 ML SYRINGE IVP SCH ×4 (03:05→20:23)
[2021-10-17] MEDS: LORazepam 2 MG/ML INJ IV SCH ×3 (05:44→18:10)
[2021-10-17 05:46] LABS: HCT 27.4 % (34.0-46.0); HGB 8.7 gm/dL (11.4-16.0); Hypochromasia Slight; MCH 32.3 pg (25.0-35.0); MCHC 31.9 g/dL (31.0-37.0); MCV 101.1 fL (80.0-100.0); Macrocytosis Slight; Mean Platelet Volume 7.6; Platelet Count 422 k/uL (150-450); RBC 2.71 m/uL (3.80-5.40); RDW 14.8 % (11.5-15.5); WBC 7.7 k/uL (3.8-10.6)
[2021-10-17 06:04] LABS: African American GFR (CKD) >90 (>60 ml/min/1.73 sqM); Anion Gap 8 mmol/L; Blood Urea Nitrogen 38 mg/dL (7-17); Calcium 9.2 mg/dL (8.4-10.2); Carbon Dioxide 30 mmol/L (22-30); Chloride 97 mmol/L (98-107); Glucose 124 mg/dL (74-99); Non-African American GFR(CKD) >90 (>60 ml/min/1.73 sqM); Potassium 4.9 mmol/L (3.5-5.1); Sodium 135 mmol/L (137-145)
[2021-10-17] MEDS: carBAMazepine 200 MG TAB PO SCH ×3 (08:08→20:23)
[2021-10-17] MEDS: APIXABAN 5 MG TAB PO SCH ×2 (08:08→20:23)
[2021-10-17] MEDS: AMIODARONE 200 MG TAB PO SCH (08:08)
[2021-10-17] MEDS: METOPROLOL TARTRATE 25 MG TAB PO SCH ×2 (08:10→20:23)
[2021-10-17] MEDS: QUEtiapine 100 MG TAB PO SCH ×2 (08:10→20:23)
[2021-10-17] MEDS: PANTOPRAZOLE 40 MG/10 ML VIAL IV SCH (08:10)
[2021-10-17] MEDS: CHOLECALCIFEROL 125 MCG (5000 IU) TABLET PO SCH (08:11)
--- NOTE | 2021-10-17 08:16 | XR ---
EXAMINATION TYPE: XR chest 1V portable DATE OF EXAM: 10/17/2021 COMPARISON: 10/15/2021 HISTORY: 51 years Female. STUDY INDICATION GIVEN: SOB . TECHNIQUE: AP chest radiograph IMPRESSION: Tracheostomy stable in position. Right Central venous catheter tip in the SVC. Cardiac AICD unchanged in appearance. Left lower lobe opacity without significant change, may reflect segmental atelectasis or consolidatio n. No pneumothorax or large effusion. Mild interstitial edema, improved in the interval. No cardiac e nlargement.
--- NOTE | 2021-10-17 11:13 | P.PN ---
Subjective Progress Note Date: 10/17/21 Principal diagnosis: Respiratory failure. Reevaluated today on 09/18/21, patient remains in the ICU, intubated and mechanically ventilated. Patient is not making any significant neurological improvement. She has been off sedation for few days, yesterday we started the patient only on Precedex, and that's mostly to keep her synchronous with the ventilator. Again her mental status is basically about the same, and she is not showing much improvement. She opens eyes slightly to deep painful stimuli, but no purposeful movement and no responses to verbal stimuli. She is on assist control rate of 32 tidal volume 325 FiO2 was 50% and PEEP was 8 however I cut down her FiO2 to 45%. Patient is receiving enteral feeding, vital AF at 34 mL per hour. ABG today showed a pO2 of 107 pCO2 44 pH of 7.46. Basic metabolic profile is normal WBC count is 7.6 hemoglobin is 9.5. No significant metabolic abnormality to explain her encephalopathy at this point. Patient is still being followed by neurology on the case. Patient is still being treated for coronary virus infection, and UTI on admission secondary to E. coli. 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 No acute process was noted. Patient remains on seizure medications as per neurology including Keppra and Tegretol. EEG showed slowing/moderate degree of slowing suggestive of generalized cerebral dysfunction. This is seen with toxic metabolic encephalopathy. Reevaluated today on 09/19/21, patient remains in the ICU, intubated and mechanically ventilated, she is on assist control rate of 32 tidal volume of 325 FiO2 45% and PEEP of 8. Patient had to be placed on propofol yesterday at 50 mcg/kg/m, she is on IV fluid at 50 mL per hour. ABG showed a pO2 of 78 pCO2 of 47 pH of 7.44. Chest x-ray is basically about, no change. WBC count is 9.2 hemoglobin is 10.3. Electrolytes are normal. Again the patient had to be placed back on propofol because she was getting agitated, restless, and not syn chronous with the ventilator yesterday. Remains on propofol today, and patient is not responding to any stimuli. Hence I'm keeping her on propofol, I believe the patient will eventually require tracheostomy and PEG tube placement unless CODE STATUS is changed to comfort care. Chest x-ray is basically showing no significant abnormalities. She does have mild pulmonary vascular congestion. Reevaluated today on 09/20/21, patient remains in the ICU, intubated and mechanically ventilated. She is on assist control rate of 32 tidal volume 325 FiO2 is 45%, PEEP is at 8. Patient is back on propofol, intermittently has been receiving Dilaudid, patient becomes at times agitated, and asynchronous with the ventilator, early in the week, I was able to hold sedation for a number of days, however the patient remained unresponsive to verbal stimuli, and apparently she had significant toxic metabolic encephalopathy. CT of the brain was nondiagnostic. Patient was seen by neurology on consultation, and still believe that this is a occipital metabolic encephalopathy picture. Patient is on propofol now at 50 mcg/kg/m, not requiring any other sedatives or narcotics. Patient has been feeding/enteral feeding vital AF at 34 mL per hour. ABG today showed a pO2 of 101 pCO2 47 pH of 7.44. Chest x-ray continues to show retrocardiac density likely atelectasis, otherwise no significant findings on the chest x-ray Progress note dated 09/21/2021. This is a 51-year-old female, who was admitted to the hospital on September 10. She came in with mental status changes, sepsis, and hypernatremia. She came to the intensive care unit on September 10, and was intubated for respiratory failure on 09/11/2021. The patient did test positive for coronavirus. She remains on mechanical ventilator. The patient is on the volume assist control mode, rate 32, tidal volume 325, FiO2 45%, and PEEP of 8. Blood gases show pO2 of 91, pCO2 49, and pH is 7.45. The patient's getting half-normal saline at 50 mL an hour, propofol at 50 mcg/kg/m, and vital AF at 34 mL an hour, which is goal. White count 10.2, hemoglobin 9.7, hematocrit 30.4, and platelet count was normal. Sodium 139, potassium 3.5, chlorides 104, CO2 32, anion gap 3, BUN 34, and creatinine 0.65. Microbiologic studies show evidence of Escherichia coli in the urine from September 10, and presumptive staph aureus in the sputum from August 30 0. The chest x-ray shows left lower lobe atelectasis and/or infiltrates. The patient is currently on antifungals, and aztreonam. The infectious disease doctor is currently on the case. Progress note dated 09/22/2021. 51-year-old female who was admitted to the hospital on 09/10/2021. She came in with mental status changes, sepsis, and hypernatremia. She came to the intensive care unit on September 10, and was intubated for respiratory failure on 09/11/2021. She did test positive for coronavirus. She remains on the mechanical ventilator. The plan is for a tracheostomy and PEG tube placement today by one of the surgeons. The patient also had a right radial arterial line placed by our team. Currently, she is on the volume assist control mode, rate 32, tidal volume 325, FiO2 45%, PEEP of 8. Arterial blood gases show pO2 of 88, pCO2 46, and a pH is 7.48. The patient is on propofol at 40 mcg/kg/m, saline at 20 mL an hour, half-normal saline at 50 mL an hour, and vital, at 46 mL an hour, which is goal. Obviously, tube feeds on hold for anticipated surgery today. White count 9.3, hemoglobin 8.8, hematocrit 27.3, and platelet count 269,000. Sodium 139, potassium 3.4, chlorides 104, CO2 33, anion gap 2, BUN 26, and creatinine 0.54. AST 500, ALT 166. An ultrasound the right upper quadrant will be ordered. Chest x-ray shows persistent left lower lobe atelectasis and/or inf iltrate. Progress note dated 09/23/2021. This is a 51-year-old female, again seen in room 254. She's now been in the hospital for 13 days. She was admitted on 09/10/2021. She came in with mental status changes, and sepsis. She came to the intensive care unit on September 10, and was intubated respiratory failure on 09/11/2021. She did test positive for coronavirus. She remains on the mechanical ventilator. The patient was to have a tracheostomy and PEG tube placement performed. It was to be done yesterday but for some reason did not take place. She remains on the volume assist control, rate 32, tidal volume 325, FiO2 45%, and PEEP of 8. Blood gases show pO2 80, pCO2 39, pH is 7.48. The patient's getting saline at 20 mL an hour, half-normal saline at 50 mL an hour, and tube feeds are currently on hold. White count 10, hemoglobin 9.3, hematocrit 29.2, and platelet count 341,000. Sodium 139, potassium 3.6, chlorides 106, CO2 27, anion gap 6, BUN 23, and creatinine 0.59. Albumin is 2.4. Microbiology from September 10, shows a urine that was positive for an E. coli, and a sputum from September 17, it is positive for Staphylococcus aureus. The patient is currently on vancomycin and Eraxis. Progress note dated 09/24/2021. 51-year-old female, again seen in room 254. The patient underwent tracheostomy and PEG tube placement yesterday, on September 23. The patient is now been in the hospital for 14 days. The patient was admitted on 09/10/2021. She did test positive for coronavirus. The patient was intubated on 09/11/2021, for respiratory failure. Currently, she is on volume assist control, rate 32, tidal volume 325, FiO2 40%, and PEEP of 8. Arterial blood gases show pO2 of 79, pCO2 39, pH is 7.45. The patient's getting half-normal saline at 50 mL an hour. She is on propofol at 40 mcg/kg/m. Tube feedings are still on hold. She's getting an antifungal, as well as Levaquin. Labs include a white count 9.1, hemoglobin 9.5, hematocrit 29.5 and platelet count which is normal. Sodium 133, potassium 3.4, chlorides 101, CO2 26, anion gap 6, BUN 19, and creatinine 0.53. AST is 229, and ALTs 159. Microbiologic studies are positive for a urine sample from September 10, for E. coli, and methicillin sensitive staph aureus in the sputum from September 17. Chest x-ray shows patchy bibasilar and bilateral infiltrates. Progress note dated 09/25/2021. 51-year-old female again seen in room 254. She underwent tracheostomy and PEG tube placement on September 23. The patient has been in the hospital now for 15 days. She remains on the ventilator. She is on the volume assist control mode, rate 32, tidal volume 325, FiO2 40%, PEEP of 8. Blood gases show pO2 of 95, pCO2 51, and pH is 7.44. The patient's getting half-normal saline at 50 mL an hour, and currently, propofol is off. She is also on vital 1.2 at 46 mL an hour, which is goal. She remains on Levaquin for a sputum positive for methicillin sensitive staph aureus. Also, the patient is on an antifungal as per infectious diseases. Because of her poor mental status, we will repeat a computed tomography scan of the brain with contrast. Her hoping to be able to get this patient to a long-term acute care facility or specialized nursing facility. White count 9.9, hemoglobin 9, hematocrit 26.8 and platelet count 333,000. Sodium 137, potassium 3.9, chlorides 102, CO2 31, anion gap 4, BUN 18, creatinine 0.53. Chest x-ray shows a tracheostomy tube in the midline. There is diffuse bilateral infiltrates, with worsening in the retrocardiac area. Progress note dated 09/26/2021. This is a 51-year-old female again seen in room 254. She underwent tracheostomy and PEG tube placement on September 23. She's now been in the hospital for 16 days. She remains on the ventilator. The patient was admitted on 09/10/2021. She did test positive for coronavirus. The patient was intubated on 09/11/2021, for respiratory failure. She remains on the ventilator. She is on the volume assist control mode, rate 32, tidal volume 325, FiO2 40%, to be reduced down to 35%, and PEEP of 8. Blood gases show pO2 of 111, pCO2 42, and a pH is 7.52. The patient is receiving saline at 20 mL an hour, half-normal saline at 50 mL an hour, and vital AF at 57 mL an hour, which is goal. The patient remains on Levaquin and Eraxis. The patient's chest x-ray is unchanged. Recent repeat brain CT was negative. White count 8.7, hemoglobin 8.8, hematocrit 27.6, and platelet count 330,000. Sodium 138, potassium 3.6, chlorides 102, CO2 34, anion gap 2, BUN 22, creatinine 0.38. Progress note dated 09/27/2021. 51-year-old female, again seen in room 254. The patient underwent tracheostomy and PEG tube placement, on 09/23/2021. She's now been in the hospital for 17 days. She remains on the ventilator. She was initially admitted back on 09/10/2021. She did test positive for coronavirus. She was intubated on 09/11/2021, for worsening respiratory failure. She remains on the mechanical ventilator. The patient is on the volume assist control mode, rate 32, tidal volume 325, FiO2 35%, and PEEP of 8. Blood gases show pO2 of 82, pCO2 40, and pH is 7.49. She's getting saline at 20 mL an hour, half-normal saline at 50 mL an hour, and vital AF at 57 and hour, which is goal. We are going to DC her Decadron. She been on it since the . White count 8.3, hemoglobin 9.5, hematocrit 30, and platelet count 356,000. Sodium 138, potassium 4, chlorides 103, CO2 31, anion gap 4, BUN 22, creatinine 0.45. Microbiology shows a staph aureus from September 17, and the sputum. It's a methicillin sensitive staph aureus. The patient remains on Eraxis and Levaquin. Chest x-ray is essentially unchanged. Reevaluated today on 10/09/2021, patient remains in the ICU, remains on ventilatory support, she is on pressure control of 22 inspiratory time of 0.9 FiO2 40% PEEP of 5. ABG today showed a pO2 of 131 pCO2 of 31 pH of 7.52. Patient is not requiring any pressors, she is not requiring any drips, no sedation is needed, she is still receiving tube feeding vital HPI 22 mL per hour. Patient had a relatively uneventful night, and we plan to place the patient back on a mode of weaning, and I plan to place her back either on a T piece orotracheal collar today. No ABG was done today. No chest x-ray was done. Chest x-ray from yesterday showed basically no change. Tracheostomy is intact. Reevaluated today on 10/10/2021, patient remains on TP, over the last 24 hours, tolerating weaning very well, seems to be quite agitated, and would like to go home. Patient is getting more agitated with the t piece itself, although she seems to be very comfortable and her O2 saturation is high in the 90s. Went ahead and recommended decannulation of the trach, and I removed the tracheostomy at bedside, and the sutures around the tracheostomy were also removed. Patient felt much better and she was switched to a nasal cannula. WBC count today is 6.6 hemoglobin 8.1 electrodes. Normal except for low potassium be corrected accordingly. Went ahead and discontinued his Eraxis, patient is on vancomycin, and hopefully that will be discontinued by infectious disease today on rounds. No chest x-ray was done today. But I reviewed the chest x-ray from yesterday Reevaluated today on 10/11/2021, patient remains in the ICU, yesterday I D cannulated the patient, however few hours later, the patient developed left lower lobe atelectasis/collapse, and she was having hard time breathing, she could not clear any of her secretions. Patient was very weak, and she had a very ineffective cough. I was notified about this patient by the nurse and by respiratory therapy, I recommended that the patient gets her trach placed back again. And this time she is to have a size 6 a size 7 Shiley tube placed by respiratory therapy. Indeed the patient had a size 6 placed, placed back on mechanical ventilation overnight, since she was agitated we added Precedex overnight. Remains on the vent overnight, and she is on Precedex. Her ABG today showed a pO2 of 105, pCO2 34 pH of 7.51. This was on assist control mode of mechanical ventilation, she was on rate of 28 tidal volume 400 FiO2 40% and PEEP of 8. Then I recommended that we give the patient today another trial on trach collar but she is to be suctioned if she develops any shortness of breath or she develops worsening secretions. Patient remains on vital AF at 60 mL/h she was on a very low dose of norepinephrine at 0.02 which I have discontinued this morning. Chest x-ray is showing dramatic improvement in her left lower lobe atelectasis/collapse. But it is not fully completely resolved. Nonetheless the patient continues to have minimal atelectasis at the left base. WBC count today is 7 hemoglobin 7.2 electrolytes are normal renal profile is normal. Progress note dated 10/12/2021. The patient is again seen in room 254. I saw her last on September 27. The patient was admitted to the hospital on September 10. She came in with mental status changes, seizures, and acute kidney injury, as well as coronavirus infection. The patient came to the intensive care unit on 09/11/2021, and was intubated on the same day. The patient had a tracheostomy and PEG tube placed on 09/23/2021. The patient remains on the ventilator. She has had some weaning with trach collar. Currently, she is on the volume assist control, rate 28, tid al volume 400, FiO2 40%, and PEEP of 8. Blood gases show a PaO2 of 166, pCO2 37, and pH is 7.47. That was on 50% FiO2. The patient's on saline at 100 mL an hour, and Precedex at 0.2 mcg/kg/h. We are going to give the patient Ativan, Seroquel, and Dilaudid. We will discontinue the Precedex. We'll make sure the fluids were cut back, and give the patient Lasix 40 mg IV push. The only lab data from today include a glucose of 115, and blood gases as mentioned. Chest x-ray shows some mild interstitial changes, and a retrocardiac and left basilar opacity. Microbiology is reviewed. And there is no recent culture data of significance. Progress note dated 10/13/2021. Patient is again seen in room 254. The patient is been in the hospital now for 33 days. The patient was admitted to the hospital on September 10. She came in with mental status changes, acute kidney injury, and seizures. She also tested positive for coronavirus infection. She came to the intensive care unit on September 11, and was intubated on 09/11/2021. The patient had a tracheostomy and PEG tube placed on 09/23/2021. Currently, she is on volume assist control, with a rate of 28, tidal volume 400, FiO2 40%, and PEEP of 8. No blood gases were done today. The patient's on saline at 20 mL an hour, and vital AF at 60 mL an hour, which is goal. Yesterday, she spent from 8:30 AM to noon, on CPAP, and from noon, to 6:30 PM on trach collar. We will attempt to do the same thing today. Laboratory data includes a white count 6.1, hemoglobin 7.4, hematocrit 23.4, and platelet count 348,000. Sodium, potassium, chloride, CO2, all normal. Anion gap is normal. BUN 19, creatinine 0.42. Albumin is 2.6. Chest x-ray shows diffuse bilateral infiltrates, and is unchanged. Progress note dated 10/14/2021. Patient is again seen in room 254. The patient has not been here in the hospital for 34 days. She was admitted back on September 10. She came in with mental status changes, acute kidney injury, and seizures. She also tested positive for coronavirus infection. She came to the intensive care unit on September 11, and was intubated on the same day. She had a tracheostomy and PEG tube placement on 09/23/2021. Currently, she is on T-piece, at 50%. She's been on that since 11:00 AM yesterday. In addition, the patient's on vital AF at 60 mL an hour. She's getting saline at 20 mL an hour. Today's laboratory includes a white count 7.7, hemoglobin 8.9, hematocrit 28.2, and platelet count 429,000. Sodium 138, potassium 4.2, chlorides 101, CO2 32, anion gap 5, BUN 20, creatinine 0.4. No chest x-ray today. Progress note dated 10/15/2021. Patient is again seen in room 254. The patient is now been in the hospital for 35 days. She was admitted back on September 10, and came in with mental status c hanges, acute kidney injury, and seizures. She also tested positive for coronavirus infection. She came to the intensive care unit on September 11, and was intubated on the same day. She underwent tracheostomy and PEG tube placement on 09/23/2021. She has been on 50% T-piece for about 2 days now. The patient is receiving vital HP at 60 mL an hour, which is goal, saline at 20 mL an hour, and is currently not getting any sedation. The patient is receiving Seroquel, Ativan, and Dilaudid. We are going to cut back on the Ativan and Dilaudid. No new labs today. Labs from yesterday have been reviewed. Chest x- ray continues to show diffuse bilateral infiltrates, which are unchanged from the previous day. Progress note dated 10/16/2021. The patient is again seen in room 254. She's now been in the hospital for 36 days. She was admitted back on September 10, he came in with mental status changes, seizures, and acute kidney injury. She also tested positive for coronavirus infection. She came to the intensive care unit on September 11, and was intubated on September 11. Because of failure to wean from mechanical ventilation, she underwent tracheostomy and PEG tube placement on 09/23/2021. The patient has been on 50% T piece for about 2-1/2 days now. The patient is also receiving saline at 20 mL an hour, and vital AF at 60 mL an hour, which is goal. The patient is still too weak to be decannulated, and also, having too many secretions to be decannulated. Appetite labs today include a white count 7.5, hemoglobin 9.6, hematocrit 30.2, and platelet count 453,000. Sodium 137, c alcium 4.8, chlorides 97, CO2 32, anion gap 8, BUN 32, and creatinine 0.44. Albumin is 3.3. No chest x-ray today. No blood gas today. Progress note dated 10/17/2021. The patient is again seen in room 254. She's now been in the hospital for 37 days. She was admitted back on September 10, and came in with mental status changes, seizures, and acute kidney injury. She did test positive for coron avirus, and came to the intensive care unit on September 11, and was intubated on the same day for respiratory failure. Because of failure to wean from mechanical ventilation, she had tracheostomy and PEG tube performed on 09/23/2021. For the last 3 days or so, the patient has been on T piece at 40%. The patient remains on saline at 20 mL an hour, and vital AF at 60 mL an hour, which is goal. The patient is still producing too much tracheobronchial secretions, to be safely decannulated, and is still too weak. White count 7.7, hemoglobin 8.7, hematocrit 27.4, and platelet count 422,000. Sodium 135, potassium 4.9, chlorides 97, CO2 30, anion gap 8, BUN 38, and creatinine 0.41. Glucose 124. Chest x-ray shows bibasilar infiltrates, without significant change. There is some mild interstitial edema. Objective - Vital Signs Vital signs: Vital Signs Temp 98.7 F 10/17/21 08:00 Pulse 109 H 10/17/21 10:00 Resp 35 H 10/17/21 10:00 BP 100/62 10/17/21 10:00 Pulse Ox 96 10/17/21 10:00 Intake & Output 10/16/21 10/17/21 10/17/21 18:59 06:59 18:59 Intake Total 1080 1050 320 Output Total 840 610 260 Balance 240 440 60 Weight 58 kg Intake: IV 240 240 80 Sodium Chloride 0.9% 1, 240 240 80 000 ml @ 20 mls/hr IV . Q24H [facility] Rx#:[id number] Tube Feeding 840 780 240 Other 30 Output: Urine 840 610 260 Other: Voiding Method Indwelling Catheter Indwelling Catheter Indwelling Catheter ABP, PAP, CO, CI - Last Documented Arterial Blood Pressure 123/58 - Exam No acute distress, currently off of all sedation, much more awake and alert, with a midline tracheostomy, currently on T-piece at 40%. HEENT examination is grossly unremarkable. Neck supple. Full range of motion. No adenopathy thyromegaly or neck vein distention. Midline tracheostomy is noted. Cardiovascular examination reveals regular rhythm rate. S1-S2 normal. No S3 or S4. No discernible murmur noted. Heart rate 109 bpm. Heart sounds are distant. Lungs reveal bilateral expiratory rhonchi and wheezes. No crackles. Breath sounds are equal bilaterally. Saturations are 96 %. Breath sounds are improved. Abdomen soft, without bowel sounds. No masses. PEG tube is noted. Extremities are intact. No cyanosis or clubbing. Trace edema is noted. Skin is without rash or lesion. Neurologic examination is much improved. The patient's awake and alert. - Labs CBC & Chem 7: 10/17/21 05:16 10/17/21 05:16 Labs: Abnormal Lab Results - Last 24 Hours (Table) 10/17/21 10/17/21 Range/Units 05:16 05:16 RBC 2.71 L (3.80-5.40) m/uL Hgb 8.7 L (11.4-16.0) gm/dL Hct 27.4 L (34.0-46.0) % MCV 101.1 H (80.0-100.0) fL Sodium 135 L (137-145) mmol/L Chloride 97 L (98-107) mmol/L BUN 38 H (7-17) mg/dL Creatinine 0.41 L (0.52-1.04) mg/dL Glucose 124 H (74-99) mg/dL Assessment and Plan Assessment: Acute hypoxemic respiratory failure secondary to coronavirus associated pneumonia, status post intubation and mechanical ventilation on 09/11/2021. Status post tracheostomy and PEG tube placement on 09/23/2021. Acute mental status changes, secondary to toxic/metabolic encephalopathy, much improved. Methicillin sensitive staph aureus pneumonia, left lower lobe, treated. Dehydration, on admission, resolved. History of seizure disorder. Prior history of pulmonary embolism. Paroxysmal atrial fibrillation. Cardiomyopathy with ejection fraction of 30-35%. Status post pacemaker implantation. 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 Hypothyroidism. CAD. History of CVA in 2007. History of recurrent E. coli urinary tract infections, treated. History of psoriasis. History of sacral/coccygeal decubitus ulcer. Plan: Plan dated 09/21/2021. Because of the patient's overall poor status, and the fact that she still is a full code, surgery will be consulted for possible tracheostomy and PEG tube placement. We will continue to follow make recommendations where appropriate. Again, prognosis is very poor. She remains on mechanical ventilator. She remains on appropriate antibiotics. Infectious diseases is following. We will continue to follow make recommendations where appropriate. Plan dated 09/22/2021. The patient is going to hopefully have a tracheostomy and PEG tube placement today. The patient remains on propofol at 40 mcg/kg/m. We did replace the arterial line. The previous arterial line was poorly functional. She had a right radial arterial line placed today by our team. A previous urine culture from September 10 showed Escherichia coli. Sputum from September 17 showed Radha, and presumptive Staphylococcus aureus. The patient remains on an antifungal, and vancomycin as per infectious diseases. Mariam follow and make recommendations where appropriate. Prognosis is certainly guarded. Plan dated 09/23/2021. The patient had methicillin sensitive staph aureus in the sputum and is currently on vancomycin. That can be changed to something other than vancomycin. The patient should have a tracheostomy and PEG tube placement today. It was to be done yesterday. The patient is currently off all sedation. Tube feedings on hold. Oxygenation and ventilation are excellent. We will continue to follow make recommendations where appropriate. Overall prognosis remains very guarded. Most recent brain CT shows old infarcts, with nothing acute and no major change. Plan dated 09/24/2021. The patient underwent tracheostomy and PEG tube placement yesterday, 09/23/2021. She remains on the mechanical ventilator. Labs, x-rays, and medications are all reviewed. The staph. in the sputum, was methicillin sensitive. Hence, vancomycin was discontinued, and she was started on Levaquin. She remains on the antifungal. We will continue to follow make recommendations where appropriate. We'll attempt to wean her off the propofol. Additional recommendations and suggestions are coming. Prognosis is guarded. Plan dated 09/25/2021. We'll attempt another CAT scan of the brain with contrast, because of the patient's poor mental status. Two prior CT scans did not show anything acute. The patient remains on Levaquin, and Eraxis. The patient remains off of all. We will continue to follow make recommendations where appropriate. Overall prognosis remains guarded. Plan dated 09/26/2021. Repeat brain CT with contrast, was negative for anything acute. The patient's mental status remains poor. The patient is currently off all sedatives. The patient remains on antibiotic and antifungal as above. The sputum was positive for methicillin sensitive staph aureus. Fungal cultures are currently negative. The patient's chest x-ray is unchanged. The FiO2 was reduced on the 35%. Labs, x-rays, and medications are all reviewed. We will continue to follow and make recommendations where appropriate. Prognosis is certainly guarded. Plan dated 09/27/2021. The patient's repeat brain CT with contrast, was negative for anything acute. The patient's overall mental status remains very poor. The patient will have a daily interruption of sedation, and a spontaneous breathing trial today. We will DC the Decadron, as the patient has been on it since September 12. The patient is currently on Levaquin for a methicillin sensitive staph aureus that was discovered in the sputum. He also remains on the antifungal, Eraxis. We will continue to follow make recommendations where appropriate. The patient's labs, x-rays, and medications are all reviewed. Prognosis is guarded. Possible discharge to a long-term acute care facility, or a specialized nursing facility. Plan dated 10/12/2021. The patient's neurologic status is much improved. He is awake and alert. She has had some weaning along the way. Today, we will attempt to get her off of Precedex, by adding some Ativan, Seroquel, and when necessary Dilaudid. In addition, IV fluids are made at KVO. We will give the patient Lasix 40 mg IV push. Additional recommendations and suggestions are forthcoming. Prognosis is guarded. We also place the patient on some pressure support and CPAP, and will transition her to trach collar. Additional recommendations and suggestions are forthcoming. We will continue to follow make recommendations where appropriate. Prognosis is very guarded. Plan dated 10/13/2021. The patient did well yesterday on her eating, and spent about 6-1/2 hours on trach collar. The patient's currently not on any sedation whatsoever. She does get Ativan, and Seroquel, and when necessary Dilaudid. Yesterday, she was on dexmedetomidine. Labs, x-rays, and medications all all reviewed. The patient will again have additional weaning today. Prognosis is guarded. We will continue to follow her and make recommendations where appropriate. Hopefully, we can get her to a long-term acute care facility. Plan dated 10/14/2021. Currently, the patient has been receiving oxygen at 50%. She has not been on the ventilator since 11:00 in the morning yesterday. She is getting her vital AF at 60 mL an hour. She's getting saline at 20 mL an hour. She is off all sedation. We will continue to follow make recommendations were appropriate. Prognosis is guarded. The plan is to hopefully get her transferred to a long- term acute care facility by the end of the week. Plan dated 10/15/2021. The patient's Ativan and Dilaudid will be cut back. The Ativan will be 1 mg every 6 hours, and Dilaudid 1 mg every 6 hours. The patient remains on the same dose of Seroquel. Currently, she is getting saline at 20 mL an hour. She's not receiving any additional sedation. The patient is getting tube feedings at goal, which are vital HP at 60 mL an hour. I've asked respiratory to try a trach collar on this patient. She should not be decannulated this time. She is far too weak, and she still producing significant tracheobronchial secretions. She can be decannulated at a later time, after being transferred to a rehab facility, or long-term acute care. Plan dated 10/16/2021. We did cut back the patient's Ativan and Dilaudid. It did seem to help. She bit more awake and alert today. The patient continues on 50% T piece. The patient also remains on Seroquel. The patient is receiving tube feedings. She is also getting saline at 20 mL an hour. The patient is too weak to decannulate. She needs to be much stronger. In addition, the patient is producing too many secretions to be decannulated safely. We'll hoping to be able to get the patient to long-term acute care facility or rehab. Additional recommendations and suggestions are forthcoming. Labs, x-rays, and medications are reviewed. We will continue to follow make recommendations where appr opriate. Prognosis is guarded. Plan dated 10/17/2021. The patient is doing at her. She remains on 40%. The patient is still having lots of tracheobronchial secretions, so the cannulation is out of the question. In addition, she is significantly weak. She remains on Ativan and Dilaudid. They do seem to settle her down. In addition, she remains on Seroquel. Labs, x-rays, and medications are reviewed. Overall prognosis remains guarded, but over the last for 5 days, she is showing significant improvement. The patient will stay here in the intensive care unit. We will continue to follow make recommendations where appropriate. Prognosis is guarded. Time with Patient: Greater than 30
[2021-10-17] MEDS: SODIUM CHLORIDE 0.9% 1,000 ML IV SCH (12:26)
--- NOTE | 2021-10-17 17:41 | P.PN ---
Subjective This is a pleasant 51 years old female with past medical history of Coronary Artery Disease, Heart Failure, CVA/TIA, Pulmonary Embolus (PE), Seizure Disorder, Last seizure 2009, CVA 2007 with L sided weakness arm and leg and has L foot drop, TIA 2018, cardiomyopathy, R PE and pneumothorax/pneumonia following leg fracture in 1994, gestational diabetes with all pregnancies , bilateral glaucoma with surgery, psoriasis in the past, UTIs. She is a status post Pacemaker, history of Bilateral eye surgery for glaucoma, Anxiety, Depression, Current every day smoker Patient presents because of altered mental status. Information was limited from the patient. It was obtained from the chart and medical staff. Also as per family patient was able to go to the bathroom, was more lethargic and tired over the last day. While in the emergency room focal mild seizure is noticed On admission patient had and fever of 101. She is tachypneic at 26-40, tachycardic 110-140, also she is hypoxic saturating 72% on room air Labs showing WBC of 10.5, hemoglobin of 16.3, platelet count of 197. INR 1.7. Sodium 164, creatinine 1.7, lactic acid elevated 4.6. Liver enzymes elevated with AST 202 and ALT 81. Bilirubin is normal at 1.3. Urine analysis is highly suspicious of infection Urine drug screen is negative Cash versus positive Chest x-ray showing left perihilar and left lower lobe area of infiltrate and small effusion correlates for pneumonia CT of the brain without contrast showing no intracranial hemorrhage, evidence of remote ischemic change. However there is vague low attenuation near the left thalamus and left cerebral peduncle. Acute ischemia in the differential diagnosis. Recommend stat MRI of brain with MRSA [place] as clinically warranted. In the emergency room patient was started on aztreonam and IV vancomycin, Keppra and heparin drip 09/11/2021 Patient today was still in the ICU, she was very weak and obtunded, she will wake up to certain stabilized and moans, she does not follow commands she cannot, gait she moved both extremities symmetrically. R on she had collapse of her left lung cancer and she has to be intubated and repeat chest x-ray showing better. A of the left lung. She is tachypneic with a breathing rate 22, no more fever since yesterday. Her sodium improved down to 144 and she was started on normal saline, creatinine 1.1, Ejection fraction showed 30-35% which is slice worsened from 06/2021 where it was 35-40% She remains on dexamethasone, IV vancomycin and clindamycin, heparin drip, Keppra and normal saline at 75 mL/h 09/12/2021 Patient with respiratory failures and she was intubated and placed on mechanical ventilation with pulmonary/critical care team following her mostly. There is no more seizure-like activity noticed. She still tachypneic with a breathing rate of 32 blood pressure 100/70, she is needing FiO2 of 80% and PEEP of 20. She has no more fevers since admission. Urine culture is growing gram-negative bacilli. Sodium is 146, WBCs is increased at 16.5 K. PH showing acidosis with 7.1 and elevated pCO2 at 83. Chest x-ray showing left sided opacities with near full. A of the left lung. Patient kept on antibiotics in the form of clindamycin and Levaquin and fluconazole. Also she remains on dexamethasone, and so a heparin to Lovenox. Also continued on seizure medication 1500 mg twice a day and IV fluids per pulmonary team. Neurology team on the case 09/13/2021 Patient remains intubated and sedated with pulmonary/critical care team following her closely. Her PEEP is lower today to 18. She remains on FiO2 of 50%. She is tachypneic at 32 about blood pressure is controlled. Her inflammatory markers are increased to LDH of 1009 and CRP of 25.1. Bicarb is elevated at 31 WBC is 17.7, sodium improved to 142. Creatinine improved to 0.6. Chest x-ray showed improving left lung infiltrate. PH is improved slightly 7.2 with pCO2 is slightly better at 79. Urine culture is growing E. coli which is sensitive to the antibiotics. Currently patient is covered with clindamycin, Levaquin and fluconazole. Also she is on dexamethasone 6 mg, Keppra 1500 mg and half-normal saline at 50 mL per hour Anticoagulation switch from heparin drip and to Lovenox 09/14/2021 Patient still intubated and sedated on mechanical ventilation with pulmonary/critical care team following her closely and just her vent setting. Today her FiO2 of 55%, and she is tachypneic at 33 breath per minute. Labs showing stable findings with sodium 141, creatinine 0.8, liver enzymes slightly elevated, LDH slightly down at 797 and CRP 2-3.2. Same leukocytosis at 14.7. Her pH is 7.2 and carbon dioxide is 82. D-dimer mildly elevated at 0.9, just x-ray showing bilateral infiltrate with no significant change from prior. She remains on the same antibiotic of clindamycin, Levaquin, dexamethasone, Keppra 1500 mg and half normal saline at 50 mL/h 09/15/2021 Patient in the ICU intubated and sedated, with pulmonary/critical care team following closely. FiO2 still 50%, hemodynamically showing both staple blood pressure 101/40, patient is tachypneic more than 30 per minutes. PEEP is lower. wbc of 11.3, hemoglobin 9.4, sodium 140, creatinine 0.8. chest x-ray: mild worsening infiltrate in the left lobe. patient continued with the same treatment of clindamycin, levaquin, dexamethasone, keppra and she received 1 l of normal saline today. 10/17/2021 Decubitus in the ICU in critical condition although slightly improving requiring mechanical ventilation via tracheostomy with a lot of secretion. FiO2 40% Hemoglobin 9.6 down to 8.7, rest of labs looks stable, chest x-ray is stable with no change showing left lower lobe opacity Patient remains receiving vitamin C, D and zinc for her, and infection as well as Eliquis, Keppra 1500 mg, amiodarone for her A. fib. Also patient Agitation at times requiring Seroquel, Ativan and Dilaudid Objective - Vital Signs Vital signs: Vital Signs Temp 98.5 F 10/17/21 12:00 Pulse 103 H 10/17/21 12:00 Resp 38 H 10/17/21 12:00 BP 98/61 10/17/21 12:00 Pulse Ox 97 10/17/21 12:00 Intake & Output 10/16/21 10/17/21 10/17/21 18:59 06:59 18:59 Intake Total 1080 1050 480 Output Total 840 610 360 Balance 240 440 120 Weight 58 kg Intake: IV 240 240 120 Sodium Chloride 0.9% 1, 240 240 120 000 ml @ 20 mls/hr IV . Q24H [facility] Rx#:[id number] Tube Feeding 840 780 360 Other 30 Output: Urine 840 610 360 Other: Voiding Method Indwelling Catheter Indwelling Catheter Indwelling Catheter ABP, PAP, CO, CI - Last Documented Arterial Blood Pressure 123/58 - Exam -GENERAL: The patient is status post tracheostomy, breathing quietly with no distress HEENT: Pupils are round and equally reacting to light. EOMI. No scleral icterus. No conjunctival pallor. Normocephalic, atraumatic. No pharyngeal erythema. No thyromegaly. CARDIOVASCULAR: S1 and S2 present. No murmurs, rubs, or gallops. PULMONARY: Chest is clear to auscultation, no wheezing or crackles. ABDOMEN: Soft, nontender, nondistended, normoactive bowel sounds. No palpable organomegaly. MUSCULOSKELETAL: No joint swelling or deformity. EXTREMITIES: No cyanosis, clubbing, or pedal edema. NEUROLOGICAL: Gross neurological examination did not reveal any focal deficits. SKIN: No rashes. no petechiae. - Labs CBC & Chem 7: 10/17/21 05:16 10/17/21 05:16 Labs: Abnormal Lab Results - Last 24 Hours (Table) 10/17/21 10/17/21 Range/Units 05:16 05:16 RBC 2.71 L (3.80-5.40) m/uL Hgb 8.7 L (11.4-16.0) gm/dL Hct 27.4 L (34.0-46.0) % MCV 101.1 H (80.0-100.0) fL Sodium 135 L (137-145) mmol/L Chloride 97 L (98-107) mmol/L BUN 38 H (7-17) mg/dL Creatinine 0.41 L (0.52-1.04) mg/dL Glucose 124 H (74-99) mg/dL Assessment and Plan Assessment: Altered mental status secondary to metabolic encephalopathy, ruled out inte rcranial lesions Acute hypoxic respiratory failure secondary to COVID-19 pneumonia, still requiring tracheostomy and CPAP Status post tracheostomy and PEG tube placement Sepsis , resolved with treatment Hypotensive, improved Breakthrough seizure, history of previous seizures. On Keppra Unstageable sacral pressure ulcer Cardiomyopathy, EF of 30-35% Paroxysmal A. fib on Eliquis Acute kidney injury, improved with treatment History of coronary artery disease history of pulmonary embolism History 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 left foot drop Status post permanent pacemaker History of glaucoma but surgical intervention Plan: This is a pleasant 51 years old female who presents with altered mental status, pneumonia, UTI, possible stroke, seizure and possible covid pneumonia Continue with Keppra and neurology consult. Continue with mechanical ventilation via tracheostomy. 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 fib per fuel management handler Continue Wound care for unstageable sacral pressure wound Still waiting for insurance approval for transfer to long-term acute care Labs and medication were reviewed.. Continue same treatment. Continue with symptomatic treatment. Resume home medication. Monitor lytes and vitals. DVT and GI prophylaxis. Further recommendations depends on the clinical course of the patient DVT prophylaxis: Eliquis GI Prophylaxis: Ppi Prognosis is guarded
[2021-10-18] MEDS: LORazepam 2 MG/ML INJ IV SCH ×4 (00:55→18:01)
[2021-10-18] MEDS: HYDROmorphone 1 MG/ML 1 ML SYRINGE IVP SCH ×4 (05:32→20:39)
[2021-10-18] MEDS: CHOLECALCIFEROL 125 MCG (5000 IU) TABLET PO SCH (08:06)
[2021-10-18] MEDS: QUEtiapine 100 MG TAB PO SCH ×3 (08:06→22:00)
[2021-10-18] MEDS: AMIODARONE 200 MG TAB PO SCH (08:07)
[2021-10-18] MEDS: APIXABAN 5 MG TAB PO SCH ×2 (08:07→20:38)
[2021-10-18] MEDS: METOPROLOL TARTRATE 25 MG TAB PO SCH ×2 (08:07→20:39)
[2021-10-18] MEDS: PANTOPRAZOLE 40 MG/10 ML VIAL IV SCH (08:07)
[2021-10-18] MEDS: carBAMazepine 200 MG TAB PO SCH ×3 (08:07→22:00)
--- NOTE | 2021-10-18 11:22 | P.PN ---
Subjective Progress Note Date: 10/18/21 Principal diagnosis: Respiratory failure. Reevaluated today on 09/18/21, patient remains in the ICU, intubated and mechanically ventilated. Patient is not making any significant neurological improvement. She has been off sedation for few days, yesterday we started the patient only on Precedex, and that's mostly to keep her synchronous with the ventilator. Again her mental status is basically about the same, and she is not showing much improvement. She opens eyes slightly to deep painful stimuli, but no purposeful movement and no responses to verbal stimuli. She is on assist control rate of 32 tidal volume 325 FiO2 was 50% and PEEP was 8 however I cut down her FiO2 to 45%. Patient is receiving enteral feeding, vital AF at 34 mL per hour. ABG today showed a pO2 of 107 pCO2 44 pH of 7.46. Basic metabolic profile is normal WBC count is 7.6 hemoglobin is 9.5. No significant metabolic abnormality to explain her encephalopathy at this point. Patient is still being followed by neurology on the case. Patient is still being treated for coronary virus infection, and UTI on admission secondary to E. coli. 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 No acute process was noted. Patient remains on seizure medications as per neurology including Keppra and Tegretol. EEG showed slowing/moderate degree of slowing suggestive of generalized cerebral dysfunction. This is seen with toxic metabolic encephalopathy. Reevaluated today on 09/19/21, patient remains in the ICU, intubated and mechanically ventilated, she is on assist control rate of 32 tidal volume of 325 FiO2 45% and PEEP of 8. Patient had to be placed on propofol yesterday at 50 mcg/kg/m, she is on IV fluid at 50 mL per hour. ABG showed a pO2 of 78 pCO2 of 47 pH of 7.44. Chest x-ray is basically about, no change. WBC count is 9.2 hemoglobin is 10.3. Electrolytes are normal. Again the patient had to be placed back on propofol because she was getting agitated, restless, and not syn chronous with the ventilator yesterday. Remains on propofol today, and patient is not responding to any stimuli. Hence I'm keeping her on propofol, I believe the patient will eventually require tracheostomy and PEG tube placement unless CODE STATUS is changed to comfort care. Chest x-ray is basically showing no significant abnormalities. She does have mild pulmonary vascular congestion. Reevaluated today on 09/20/21, patient remains in the ICU, intubated and mechanically ventilated. She is on assist control rate of 32 tidal volume 325 FiO2 is 45%, PEEP is at 8. Patient is back on propofol, intermittently has been receiving Dilaudid, patient becomes at times agitated, and asynchronous with the ventilator, early in the week, I was able to hold sedation for a number of days, however the patient remained unresponsive to verbal stimuli, and apparently she had significant toxic metabolic encephalopathy. CT of the brain was nondiagnostic. Patient was seen by neurology on consultation, and still believe that this is a occipital metabolic encephalopathy picture. Patient is on propofol now at 50 mcg/kg/m, not requiring any other sedatives or narcotics. Patient has been feeding/enteral feeding vital AF at 34 mL per hour. ABG today showed a pO2 of 101 pCO2 47 pH of 7.44. Chest x-ray continues to show retrocardiac density likely atelectasis, otherwise no significant findings on the chest x-ray Progress note dated 09/21/2021. This is a 51-year-old female, who was admitted to the hospital on September 10. She came in with mental status changes, sepsis, and hypernatremia. She came to the intensive care unit on September 10, and was intubated for respiratory failure on 09/11/2021. The patient did test positive for coronavirus. She remains on mechanical ventilator. The patient is on the volume assist control mode, rate 32, tidal volume 325, FiO2 45%, and PEEP of 8. Blood gases show pO2 of 91, pCO2 49, and pH is 7.45. The patient's getting half-normal saline at 50 mL an hour, propofol at 50 mcg/kg/m, and vital AF at 34 mL an hour, which is goal. White count 10.2, hemoglobin 9.7, hematocrit 30.4, and platelet count was normal. Sodium 139, potassium 3.5, chlorides 104, CO2 32, anion gap 3, BUN 34, and creatinine 0.65. Microbiologic studies show evidence of Escherichia coli in the urine from September 10, and presumptive staph aureus in the sputum from August 30 0. The chest x-ray shows left lower lobe atelectasis and/or infiltrates. The patient is currently on antifungals, and aztreonam. The infectious disease doctor is currently on the case. Progress note dated 09/22/2021. 51-year-old female who was admitted to the hospital on 09/10/2021. She came in with mental status changes, sepsis, and hypernatremia. She came to the intensive care unit on September 10, and was intubated for respiratory failure on 09/11/2021. She did test positive for coronavirus. She remains on the mechanical ventilator. The plan is for a tracheostomy and PEG tube placement today by one of the surgeons. The patient also had a right radial arterial line placed by our team. Currently, she is on the volume assist control mode, rate 32, tidal volume 325, FiO2 45%, PEEP of 8. Arterial blood gases show pO2 of 88, pCO2 46, and a pH is 7.48. The patient is on propofol at 40 mcg/kg/m, saline at 20 mL an hour, half-normal saline at 50 mL an hour, and vital, at 46 mL an hour, which is goal. Obviously, tube feeds on hold for anticipated surgery today. White count 9.3, hemoglobin 8.8, hematocrit 27.3, and platelet count 269,000. Sodium 139, potassium 3.4, chlorides 104, CO2 33, anion gap 2, BUN 26, and creatinine 0.54. AST 500, ALT 166. An ultrasound the right upper quadrant will be ordered. Chest x-ray shows persistent left lower lobe atelectasis and/or inf iltrate. Progress note dated 09/23/2021. This is a 51-year-old female, again seen in room 254. She's now been in the hospital for 13 days. She was admitted on 09/10/2021. She came in with mental status changes, and sepsis. She came to the intensive care unit on September 10, and was intubated respiratory failure on 09/11/2021. She did test positive for coronavirus. She remains on the mechanical ventilator. The patient was to have a tracheostomy and PEG tube placement performed. It was to be done yesterday but for some reason did not take place. She remains on the volume assist control, rate 32, tidal volume 325, FiO2 45%, and PEEP of 8. Blood gases show pO2 80, pCO2 39, pH is 7.48. The patient's getting saline at 20 mL an hour, half-normal saline at 50 mL an hour, and tube feeds are currently on hold. White count 10, hemoglobin 9.3, hematocrit 29.2, and platelet count 341,000. Sodium 139, potassium 3.6, chlorides 106, CO2 27, anion gap 6, BUN 23, and creatinine 0.59. Albumin is 2.4. Microbiology from September 10, shows a urine that was positive for an E. coli, and a sputum from September 17, it is positive for Staphylococcus aureus. The patient is currently on vancomycin and Eraxis. Progress note dated 09/24/2021. 51-year-old female, again seen in room 254. The patient underwent tracheostomy and PEG tube placement yesterday, on September 23. The patient is now been in the hospital for 14 days. The patient was admitted on 09/10/2021. She did test positive for coronavirus. The patient was intubated on 09/11/2021, for respiratory failure. Currently, she is on volume assist control, rate 32, tidal volume 325, FiO2 40%, and PEEP of 8. Arterial blood gases show pO2 of 79, pCO2 39, pH is 7.45. The patient's getting half-normal saline at 50 mL an hour. She is on propofol at 40 mcg/kg/m. Tube feedings are still on hold. She's getting an antifungal, as well as Levaquin. Labs include a white count 9.1, hemoglobin 9.5, hematocrit 29.5 and platelet count which is normal. Sodium 133, potassium 3.4, chlorides 101, CO2 26, anion gap 6, BUN 19, and creatinine 0.53. AST is 229, and ALTs 159. Microbiologic studies are positive for a urine sample from September 10, for E. coli, and methicillin sensitive staph aureus in the sputum from September 17. Chest x-ray shows patchy bibasilar and bilateral infiltrates. Progress note dated 09/25/2021. 51-year-old female again seen in room 254. She underwent tracheostomy and PEG tube placement on September 23. The patient has been in the hospital now for 15 days. She remains on the ventilator. She is on the volume assist control mode, rate 32, tidal volume 325, FiO2 40%, PEEP of 8. Blood gases show pO2 of 95, pCO2 51, and pH is 7.44. The patient's getting half-normal saline at 50 mL an hour, and currently, propofol is off. She is also on vital 1.2 at 46 mL an hour, which is goal. She remains on Levaquin for a sputum positive for methicillin sensitive staph aureus. Also, the patient is on an antifungal as per infectious diseases. Because of her poor mental status, we will repeat a computed tomography scan of the brain with contrast. Her hoping to be able to get this patient to a long-term acute care facility or specialized nursing facility. White count 9.9, hemoglobin 9, hematocrit 26.8 and platelet count 333,000. Sodium 137, potassium 3.9, chlorides 102, CO2 31, anion gap 4, BUN 18, creatinine 0.53. Chest x-ray shows a tracheostomy tube in the midline. There is diffuse bilateral infiltrates, with worsening in the retrocardiac area. Progress note dated 09/26/2021. This is a 51-year-old female again seen in room 254. She underwent tracheostomy and PEG tube placement on September 23. She's now been in the hospital for 16 days. She remains on the ventilator. The patient was admitted on 09/10/2021. She did test positive for coronavirus. The patient was intubated on 09/11/2021, for respiratory failure. She remains on the ventilator. She is on the volume assist control mode, rate 32, tidal volume 325, FiO2 40%, to be reduced down to 35%, and PEEP of 8. Blood gases show pO2 of 111, pCO2 42, and a pH is 7.52. The patient is receiving saline at 20 mL an hour, half-normal saline at 50 mL an hour, and vital AF at 57 mL an hour, which is goal. The patient remains on Levaquin and Eraxis. The patient's chest x-ray is unchanged. Recent repeat brain CT was negative. White count 8.7, hemoglobin 8.8, hematocrit 27.6, and platelet count 330,000. Sodium 138, potassium 3.6, chlorides 102, CO2 34, anion gap 2, BUN 22, creatinine 0.38. Progress note dated 09/27/2021. 51-year-old female, again seen in room 254. The patient underwent tracheostomy and PEG tube placement, on 09/23/2021. She's now been in the hospital for 17 days. She remains on the ventilator. She was initially admitted back on 09/10/2021. She did test positive for coronavirus. She was intubated on 09/11/2021, for worsening respiratory failure. She remains on the mechanical ventilator. The patient is on the volume assist control mode, rate 32, tidal volume 325, FiO2 35%, and PEEP of 8. Blood gases show pO2 of 82, pCO2 40, and pH is 7.49. She's getting saline at 20 mL an hour, half-normal saline at 50 mL an hour, and vital AF at 57 and hour, which is goal. We are going to DC her Decadron. She been on it since the . White count 8.3, hemoglobin 9.5, hematocrit 30, and platelet count 356,000. Sodium 138, potassium 4, chlorides 103, CO2 31, anion gap 4, BUN 22, creatinine 0.45. Microbiology shows a staph aureus from September 17, and the sputum. It's a methicillin sensitive staph aureus. The patient remains on Eraxis and Levaquin. Chest x-ray is essentially unchanged. Reevaluated today on 10/09/2021, patient remains in the ICU, remains on ventilatory support, she is on pressure control of 22 inspiratory time of 0.9 FiO2 40% PEEP of 5. ABG today showed a pO2 of 131 pCO2 of 31 pH of 7.52. Patient is not requiring any pressors, she is not requiring any drips, no sedation is needed, she is still receiving tube feeding vital HPI 22 mL per hour. Patient had a relatively uneventful night, and we plan to place the patient back on a mode of weaning, and I plan to place her back either on a T piece orotracheal collar today. No ABG was done today. No chest x-ray was done. Chest x-ray from yesterday showed basically no change. Tracheostomy is intact. Reevaluated today on 10/10/2021, patient remains on TP, over the last 24 hours, tolerating weaning very well, seems to be quite agitated, and would like to go home. Patient is getting more agitated with the t piece itself, although she seems to be very comfortable and her O2 saturation is high in the 90s. Went ahead and recommended decannulation of the trach, and I removed the tracheostomy at bedside, and the sutures around the tracheostomy were also removed. Patient felt much better and she was switched to a nasal cannula. WBC count today is 6.6 hemoglobin 8.1 electrodes. Normal except for low potassium be corrected accordingly. Went ahead and discontinued his Eraxis, patient is on vancomycin, and hopefully that will be discontinued by infectious disease today on rounds. No chest x-ray was done today. But I reviewed the chest x-ray from yesterday Reevaluated today on 10/11/2021, patient remains in the ICU, yesterday I D cannulated the patient, however few hours later, the patient developed left lower lobe atelectasis/collapse, and she was having hard time breathing, she could not clear any of her secretions. Patient was very weak, and she had a very ineffective cough. I was notified about this patient by the nurse and by respiratory therapy, I recommended that the patient gets her trach placed back again. And this time she is to have a size 6 a size 7 Shiley tube placed by respiratory therapy. Indeed the patient had a size 6 placed, placed back on mechanical ventilation overnight, since she was agitated we added Precedex overnight. Remains on the vent overnight, and she is on Precedex. Her ABG today showed a pO2 of 105, pCO2 34 pH of 7.51. This was on assist control mode of mechanical ventilation, she was on rate of 28 tidal volume 400 FiO2 40% and PEEP of 8. Then I recommended that we give the patient today another trial on trach collar but she is to be suctioned if she develops any shortness of breath or she develops worsening secretions. Patient remains on vital AF at 60 mL/h she was on a very low dose of norepinephrine at 0.02 which I have discontinued this morning. Chest x-ray is showing dramatic improvement in her left lower lobe atelectasis/collapse. But it is not fully completely resolved. Nonetheless the patient continues to have minimal atelectasis at the left base. WBC count today is 7 hemoglobin 7.2 electrolytes are normal renal profile is normal. Progress note dated 10/12/2021. The patient is again seen in room 254. I saw her last on September 27. The patient was admitted to the hospital on September 10. She came in with mental status changes, seizures, and acute kidney injury, as well as coronavirus infection. The patient came to the intensive care unit on 09/11/2021, and was intubated on the same day. The patient had a tracheostomy and PEG tube placed on 09/23/2021. The patient remains on the ventilator. She has had some weaning with trach collar. Currently, she is on the volume assist control, rate 28, tid al volume 400, FiO2 40%, and PEEP of 8. Blood gases show a PaO2 of 166, pCO2 37, and pH is 7.47. That was on 50% FiO2. The patient's on saline at 100 mL an hour, and Precedex at 0.2 mcg/kg/h. We are going to give the patient Ativan, Seroquel, and Dilaudid. We will discontinue the Precedex. We'll make sure the fluids were cut back, and give the patient Lasix 40 mg IV push. The only lab data from today include a glucose of 115, and blood gases as mentioned. Chest x-ray shows some mild interstitial changes, and a retrocardiac and left basilar opacity. Microbiology is reviewed. And there is no recent culture data of significance. Progress note dated 10/13/2021. Patient is again seen in room 254. The patient is been in the hospital now for 33 days. The patient was admitted to the hospital on September 10. She came in with mental status changes, acute kidney injury, and seizures. She also tested positive for coronavirus infection. She came to the intensive care unit on September 11, and was intubated on 09/11/2021. The patient had a tracheostomy and PEG tube placed on 09/23/2021. Currently, she is on volume assist control, with a rate of 28, tidal volume 400, FiO2 40%, and PEEP of 8. No blood gases were done today. The patient's on saline at 20 mL an hour, and vital AF at 60 mL an hour, which is goal. Yesterday, she spent from 8:30 AM to noon, on CPAP, and from noon, to 6:30 PM on trach collar. We will attempt to do the same thing today. Laboratory data includes a white count 6.1, hemoglobin 7.4, hematocrit 23.4, and platelet count 348,000. Sodium, potassium, chloride, CO2, all normal. Anion gap is normal. BUN 19, creatinine 0.42. Albumin is 2.6. Chest x-ray shows diffuse bilateral infiltrates, and is unchanged. Progress note dated 10/14/2021. Patient is again seen in room 254. The patient has not been here in the hospital for 34 days. She was admitted back on September 10. She came in with mental status changes, acute kidney injury, and seizures. She also tested positive for coronavirus infection. She came to the intensive care unit on September 11, and was intubated on the same day. She had a tracheostomy and PEG tube placement on 09/23/2021. Currently, she is on T-piece, at 50%. She's been on that since 11:00 AM yesterday. In addition, the patient's on vital AF at 60 mL an hour. She's getting saline at 20 mL an hour. Today's laboratory includes a white count 7.7, hemoglobin 8.9, hematocrit 28.2, and platelet count 429,000. Sodium 138, potassium 4.2, chlorides 101, CO2 32, anion gap 5, BUN 20, creatinine 0.4. No chest x-ray today. Progress note dated 10/15/2021. Patient is again seen in room 254. The patient is now been in the hospital for 35 days. She was admitted back on September 10, and came in with mental status c hanges, acute kidney injury, and seizures. She also tested positive for coronavirus infection. She came to the intensive care unit on September 11, and was intubated on the same day. She underwent tracheostomy and PEG tube placement on 09/23/2021. She has been on 50% T-piece for about 2 days now. The patient is receiving vital HP at 60 mL an hour, which is goal, saline at 20 mL an hour, and is currently not getting any sedation. The patient is receiving Seroquel, Ativan, and Dilaudid. We are going to cut back on the Ativan and Dilaudid. No new labs today. Labs from yesterday have been reviewed. Chest x- ray continues to show diffuse bilateral infiltrates, which are unchanged from the previous day. Progress note dated 10/16/2021. The patient is again seen in room 254. She's now been in the hospital for 36 days. She was admitted back on September 10, he came in with mental status changes, seizures, and acute kidney injury. She also tested positive for coronavirus infection. She came to the intensive care unit on September 11, and was intubated on September 11. Because of failure to wean from mechanical ventilation, she underwent tracheostomy and PEG tube placement on 09/23/2021. The patient has been on 50% T piece for about 2-1/2 days now. The patient is also receiving saline at 20 mL an hour, and vital AF at 60 mL an hour, which is goal. The patient is still too weak to be decannulated, and also, having too many secretions to be decannulated. Appetite labs today include a white count 7.5, hemoglobin 9.6, hematocrit 30.2, and platelet count 453,000. Sodium 137, c alcium 4.8, chlorides 97, CO2 32, anion gap 8, BUN 32, and creatinine 0.44. Albumin is 3.3. No chest x-ray today. No blood gas today. Progress note dated 10/17/2021. The patient is again seen in room 254. She's now been in the hospital for 37 days. She was admitted back on September 10, and came in with mental status changes, seizures, and acute kidney injury. She did test positive for coron avirus, and came to the intensive care unit on September 11, and was intubated on the same day for respiratory failure. Because of failure to wean from mechanical ventilation, she had tracheostomy and PEG tube performed on 09/23/2021. For the last 3 days or so, the patient has been on T piece at 40%. The patient remains on saline at 20 mL an hour, and vital AF at 60 mL an hour, which is goal. The patient is still producing too much tracheobronchial secretions, to be safely decannulated, and is still too weak. White count 7.7, hemoglobin 8.7, hematocrit 27.4, and platelet count 422,000. Sodium 135, potassium 4.9, chlorides 97, CO2 30, anion gap 8, BUN 38, and creatinine 0.41. Glucose 124. Chest x-ray shows bibasilar infiltrates, without significant change. There is some mild interstitial edema. Progress note dated 10/18/2021. 51-year-old female again seen in room 254. She's now been here for 38 days. The patient was admitted back on September 10, with mental status changes, sei zures, and acute kidney injury. She did test positive for coronavirus, and came to the intensive care unit on September 11, and was intubated on the same day for respiratory failure. Because of failure to wean from mechanical ventilation, she had a tracheostomy and PEG tube performed on 09/23/2021. The patient has been on T piece now for the last 3.4 to 4 days. Currently, she is at 60%. The patient's getting saline at 20 mL an hour, and tube feedings with vital AF at 60 mL an hour, which is goal. No new labs today. Laboratory data from yesterday are reviewed. Also, no chest x-ray from today. Her chest x-ray has been relatively stable and unchanging. The patient's oxygen requirements have gone up recently. This is usually because of agitation and/or pain. The patient is currently getting Ativan a milligram every 6 hours, and Dilaudid 1 mg every 6 hours. We will increase her Seroquel today. Objective - Vital Signs Vital signs: Vital Signs Temp 98.5 F 10/18/21 08:00 Pulse 105 H 10/18/21 10:00 Resp 41 H 10/18/21 10:00 BP 105/63 10/18/21 10:00 Pulse Ox 95 10/18/21 10:00 Intake & Output 10/17/21 10/18/21 10/18/21 18:59 06:59 18:59 Intake Total 960 1190 380 Output Total 820 580 240 Balance 140 610 140 Weight 54.9 kg Intake: IV 240 260 80 Sodium Chloride 0.9% 1, 240 260 80 000 ml @ 20 mls/hr IV . Q24H [facility] Rx#:[id number] Tube Feeding 720 840 300 Other 90 Output: Urine 820 580 240 Other: Voiding Method Indwelling Catheter Indwelling Catheter Indwelling Catheter ABP, PAP, CO, CI - Last Documented Arterial Blood Pressure 123/58 - Exam No acute distress, currently on much less sedation, much more awake and alert, with a midline tracheostomy, currently on T-piece at 60%. HEENT examination is grossly unremarkable. Neck supple. Full range of motion. No adenopathy thyromegaly or neck vein distention. Midline tracheostomy is noted. Cardiovascular examination reveals regular rhythm rate. S1-S2 normal. No S3 or S4. No discernible murmur noted. Heart rate 105 bpm. Heart sounds are distant. Lungs reveal bilateral expiratory rhonchi and wheezes. No crackles. Breath sounds are equal bilaterally. Saturations are 95 %. Breath sounds are improved. Abdomen soft, without bowel sounds. No masses. PEG tube is noted. Extremities are intact. No cyanosis or clubbing. Trace edema is noted. Skin is without rash or lesion. Neurologic examination is much improved. The patient's awake and alert. - Labs CBC & Chem 7: 10/17/21 05:16 10/17/21 05:16 Assessment and Plan Assessment: Acute hypoxemic respiratory failure secondary to coronavirus associated pneumonia, status post intubation and mechanical ventilation on 09/11/2021. Status post tracheostomy and PEG tube placement on 09/23/2021. Acute mental status changes, secondary to toxic/metabolic encephalopathy, much improved. Methicillin sensitive staph aureus pneumonia, left lower lobe, treated. Dehydration, on admission, resolved. History of seizure disorder. Prior history of pulmonary embolism. Paroxysmal atrial fibrillation. Cardiomyopathy with ejection fraction of 30-35%. Status post pacemaker implantation. 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 Hypothyroidism. CAD. History of CVA in 2007. History of recurrent E. coli urinary tract infections, treated. History of psoriasis. History of sacral/coccygeal decubitus ulcer. Plan: Plan dated 09/21/2021. Because of the patient's overall poor status, and the fact that she still is a full code, surgery will be consulted for possible tracheostomy and PEG tube placement. We will continue to follow make recommendations where appropriate. Again, prognosis is very poor. She remains on mechanical ventilator. She remains on appropriate antibiotics. Infectious diseases is following. We will continue to follow make recommendations where appropriate. Plan dated 09/22/2021. The patient is going to hopefully have a tracheostomy and PEG tube placement today. The patient remains on propofol at 40 mcg/kg/m. We did replace the arterial line. The previous arterial line was poorly functional. She had a right radial arterial line placed today by our team. A previous urine culture from September 10 showed Escherichia coli. Sputum from September 17 showed Radha, and presumptive Staphylococcus aureus. The patient remains on an antifungal, and vancomycin as per infectious diseases. Mariam follow and make recommendations where appropriate. Prognosis is certainly guarded. Plan dated 09/23/2021. The patient had methicillin sensitive staph aureus in the sputum and is currently on vancomycin. That can be changed to something other than vancomycin. The patient should have a tracheostomy and PEG tube placement today. It was to be done yesterday. The patient is currently off all sedation. Tube feedings on hold. Oxygenation and ventilation are excellent. We will continue to follow make recommendations where appropriate. Overall prognosis remains very guarded. Most recent brain CT shows old infarcts, with nothing acute and no major change. Plan dated 09/24/2021. The patient underwent tracheostomy and PEG tube placement yesterday, 09/23/2021. She remains on the mechanical ventilator. Labs, x-rays, and medications are all reviewed. The staph. in the sputum, was methicillin sensitive. Hence, vancomycin was discontinued, and she was started on Levaquin. She remains on the antifungal. We will continue to follow make recommendations where appropriate. We'll attempt to wean her off the propofol. Additional recommendations and suggestions are coming. Prognosis is guarded. Plan dated 09/25/2021. We'll attempt another CAT scan of the brain with contrast, because of the patient's poor mental status. Two prior CT scans did not show anything acute. The patient remains on Levaquin, and Eraxis. The patient remains off of all. We will continue to follow make recommendations where appropriate. Overall prognosis remains guarded. Plan dated 09/26/2021. Repeat brain CT with contrast, was negative for anything acute. The patient's mental status remains poor. The patient is currently off all sedatives. The patient remains on antibiotic and antifungal as above. The sputum was positive for methicillin sensitive staph aureus. Fungal cultures are currently negative. The patient's chest x-ray is unchanged. The FiO2 was reduced on the 35%. Labs, x-rays, and medications are all reviewed. We will continue to follow and make recommendations where appropriate. Prognosis is certainly guarded. Plan dated 09/27/2021. The patient's repeat brain CT with contrast, was negative for anything acute. The patient's overall mental status remains very poor. The patient will have a daily interruption of sedation, and a spontaneous breathing trial today. We wi ll DC the Decadron, as the patient has been on it since September 12. The patient is currently on Levaquin for a methicillin sensitive staph aureus that was discovered in the sputum. He also remains on the antifungal, Eraxis. We will continue to follow make recommendations where appropriate. The patient's labs, x-rays, and medications are all reviewed. Prognosis is guarded. Possible discharge to a long-term acute care facility, or a specialized nursing facility. Plan dated 10/12/2021. The patient's neurologic status is much improved. He is awake and alert. She has had some weaning along the way. Today, we will attempt to get her off of Precedex, by adding some Ativan, Seroquel, and when necessary Dilaudid. In addition, IV fluids are made at [facility]. We will give the patient Lasix 40 mg IV push. Additional recommendations and suggestions are forthcoming. Prognosis is guarded. We also place the patient on some pressure support and CPAP, and will transition her to trach collar. Additional recommendations and suggestions are forthcoming. We will continue to follow make recommendations where appropriate. Prognosis is very guarded. Plan dated 10/13/2021. The patient did well yesterday on her eating, and spent about 6-1/2 hours on trach collar. The patient's currently not on any sedation whatsoever. She does get Ativan, and Seroquel, and when necessary Dilaudid. Yesterday, she was on dexmedetomidine. Labs, x-rays, and medications all all reviewed. The patient will again have additional weaning today. Prognosis is guarded. We will continue to follow her and make recommendations where appropriate. Hopefully, we can get her to a long-term acute care facility. Plan dated 10/14/2021. Currently, the patient has been receiving oxygen at 50%. She has not been on the ventilator since 11:00 in the morning yesterday. She is getting her vital AF at 60 mL an hour. She's getting saline at 20 mL an hour. She is off all sedation. We will continue to follow make recommendations were appropriate. Prognosis is guarded. The plan is to hopefully get her transferred to a long- term acute care facility by the end of the week. Plan dated 10/15/2021. The patient's Ativan and Dilaudid will be cut back. The Ativan will be 1 mg every 6 hours, and Dilaudid 1 mg every 6 hours. The patient remains on the same dose of Seroquel. Currently, she is getting saline at 20 mL an hour. She's not receiving any additional sedation. The patient is getting tube feedings at goal, which are vital HP at 60 mL an hour. I've asked respiratory to try a trach collar on this patient. She should not be decannulated this time. She is far too weak, and she still producing significant tracheobronchial secretions. She can be decannulated at a later time, after being transferred to a rehab facility, or long-term acute care. Plan dated 10/16/2021. We did cut back the patient's Ativan and Dilaudid. It did seem to help. She bit more awake and alert today. The patient continues on 50% T piece. The patient also remains on Seroquel. The patient is receiving tube feedings. She is also getting saline at 20 mL an hour. The patient is too weak to decannulate. She needs to be much stronger. In addition, the patient is producing too many secretions to be decannulated safely. We'll hoping to be able to get the patient to long-term acute care facility or rehab. Additional recommendations and suggestions are forthcoming. Labs, x-rays, and medications are reviewed. We will continue to follow make recommendations where appropriate. Prognosis is guarded. Plan dated 10/17/2021. The patient is doing at her. She remains on 40%. The patient is still having lots of tracheobronchial secretions, so the cannulation is out of the question. In addition, she is significantly weak. She remains on Ativan and Dilaudid. They do seem to settle her down. In addition, she remains on Seroquel. Labs, x-rays, and medications are reviewed. Overall prognosis remains guarded, but over the last for 5 days, she is showing significant improvement. The patient will stay here in the intensive care unit. We will continue to follow make recommendations where appropriate. Prognosis is guarded. Plan dated 10/18/2021. The patient remains on T-piece, at 60%. Her oxygen requirements continued to change from day to day. Yesterday, she was on 40%. Today she is up to 60%. The patient's Seroquel will be increased to 100 mg 3 times a day. We'll attempt to cut back on her Ativan and her Dilaudid. No labs or x-rays today. They'll be ordered for tomorrow. Additional recommendations and suggestions are forthcoming. Prognosis is very guarded. Labs, x-rays, and medications are all reviewed. In my opinion, the patient is close to being discharged, to either specialized nursing facility, or long-term acute care facility. Time with Patient: Greater than 30
[2021-10-18] MEDS: SODIUM CHLORIDE 0.9% 1,000 ML IV SCH (13:19)
--- NOTE | 2021-10-18 21:34 | P.PN ---
Subjective This is a pleasant 51 years old female with past medical history of Coronary Artery Disease, Heart Failure, CVA/TIA, Pulmonary Embolus (PE), Seizure Disorder, Last seizure 2009, CVA 2007 with L sided weakness arm and leg and has L foot drop, TIA 2018, cardiomyopathy, R PE and pneumothorax/pneumonia following leg fracture in 1994, gestational diabetes with all pregnancies , bilateral glaucoma with surgery, psoriasis in the past, UTIs. She is a status post Pacemaker, history of Bilateral eye surgery for glaucoma, Anxiety, Depression, Current every day smoker Patient presents because of altered mental status. Information was limited from the patient. It was obtained from the chart and medical staff. Also as per family patient was able to go to the bathroom, was more lethargic and tired over the last day. While in the emergency room focal mild seizure is noticed On admission patient had and fever of 101. She is tachypneic at 26-40, tachycardic 110-140, also she is hypoxic saturating 72% on room air Labs showing WBC of 10.5, hemoglobin of 16.3, platelet count of 197. INR 1.7. Sodium 164, creatinine 1.7, lactic acid elevated 4.6. Liver enzymes elevated with AST 202 and ALT 81. Bilirubin is normal at 1.3. Urine analysis is highly suspicious of infection Urine drug screen is negative Acsh versus positive Chest x-ray showing left perihilar and left lower lobe area of infiltrate and small effusion correlates for pneumonia CT of the brain without contrast showing no intracranial hemorrhage, evidence of remote ischemic change. However there is vague low attenuation near the left thalamus and left cerebral peduncle. Acute ischemia in the differential diagnosis. Recommend stat MRI of brain with MRSA resighini of [place] as clinically warranted. In the emergency room patient was started on aztreonam and IV vancomycin, Keppra and heparin drip 09/11/2021 Patient today was still in the ICU, she was very weak and obtunded, she will wake up to certain stabilized and moans, she does not follow commands she cannot, gait she moved both extremities symmetrically. R on she had collapse of her left lung cancer and she has to be intubated and repeat chest x-ray showing better. A of the left lung. She is tachypneic with a breathing rate 22, no more fever since yesterday. Her sodium improved down to 144 and she was started on normal saline, creatinine 1.1, Ejection fraction showed 30-35% which is slice worsened from 06/2021 where it was 35-40% She remains on dexamethasone, IV vancomycin and clindamycin, heparin drip, Keppra and normal saline at 75 mL/h 09/12/2021 Patient with respiratory failures and she was intubated and placed on mechanical ventilation with pulmonary/critical care team following her mostly. There is no more seizure-like activity noticed. She still tachypneic with a breathing rate of 32 blood pressure 100/70, she is needing FiO2 of 80% and PEEP of 20. She has no more fevers since admission. Urine culture is growing gram-negative bacilli. Sodium is 146, WBCs is increased at 16.5 K. PH showing acidosis with 7.1 and elevated pCO2 at 83. Chest x-ray showing left sided opacities with near full. A of the left lung. Patient kept on antibiotics in the form of clindamycin and Levaquin and fluconazole. Also she remains on dexamethasone, and so a heparin to Lovenox. Also continued on seizure medication 1500 mg twice a day and IV fluids per pulmonary team. Neurology team on the case 09/13/2021 Patient remains intubated and sedated with pulmonary/critical care team following her closely. Her PEEP is lower today to 18. She remains on FiO2 of 50%. She is tachypneic at 32 about blood pressure is controlled. Her inflammatory markers are increased to LDH of 1009 and CRP of 25.1. Bicarb is elevated at 31 WBC is 17.7, sodium improved to 142. Creatinine improved to 0.6. Chest x-ray showed improving left lung infiltrate. PH is improved slightly 7.2 with pCO2 is slightly better at 79. Urine culture is growing E. coli which is sensitive to the antibiotics. Currently patient is covered with clindamycin, Levaquin and fluconazole. Also she is on dexamethasone 6 mg, Keppra 1500 mg and half-normal saline at 50 mL per hour Anticoagulation switch from heparin drip and to Lovenox 09/14/2021 Patient still intubated and sedated on mechanical ventilation with pulmonary/critical care team following her closely and just her vent setting. Today her FiO2 of 55%, and she is tachypneic at 33 breath per minute. Labs showing stable findings with sodium 141, creatinine 0.8, liver enzymes slightly elevated, LDH slightly down at 797 and CRP 2-3.2. Same leukocytosis at 14.7. Her pH is 7.2 and carbon dioxide is 82. D-dimer mildly elevated at 0.9, just x-ray showing bilateral infiltrate with no significant change from prior. She remains on the same antibiotic of clindamycin, Levaquin, dexamethasone, Keppra 1500 mg and half normal saline at 50 mL/h 09/15/2021 Patient in the ICU intubated and sedated, with pulmonary/critical care team following closely. FiO2 still 50%, hemodynamically showing both staple blood pressure 101/40, patient is tachypneic more than 30 per minutes. PEEP is lower. wbc of 11.3, hemoglobin 9.4, sodium 140, creatinine 0.8. chest x-ray: mild worsening infiltrate in the left lobe. patient continued with the same treatment of clindamycin, levaquin, dexamethasone, keppra and she received 1 l of normal saline today. 10/17/2021 Patient remains in the ICU in critical condition although slightly improving requiring mechanical ventilation via tracheostomy with a lot of secretion. FiO2 40% Hemoglobin 9.6 down to 8.7, rest of labs looks stable, chest x-ray is stable with no change showing left lower lobe opacity Patient remains receiving vitamin C, D and zinc for her, and infection as well as Eliquis, Keppra 1500 mg, amiodarone for her A. fib. Also patient Agitation at times requiring Seroquel, Ativan and Dilaudid 10/18/2021 Patient remains in the ICU on mechanical ventilation with pulmonary/critical care team following her closely and help with ICU management. She still tachypneic and FiO2 40-60% per pulmonary team. Labs are stable. She remains on Eliquis 5 mg and vitamins and Keppra. Seroquel increased today by pulmonary team Objective - Vital Signs Vital signs: Vital Signs Temp 98.5 F 10/18/21 08:00 Pulse 109 H 10/18/21 08:00 Resp 19 10/18/21 08:00 BP 154/77 10/18/21 08:00 Pulse Ox 96 10/18/21 08:00 Intake & Output 10/17/21 10/18/21 10/18/21 18:59 06:59 18:59 Intake Total 960 1190 140 Output Total 820 580 75 Balance 140 610 65 Weight 54.9 kg Intake: IV 240 260 20 Sodium Chloride 0.9% 1, 240 260 20 000 ml @ 20 mls/hr IV . Q24H [facility] Rx#:[id number] Tube Feeding 720 840 120 Other 90 Output: Urine 820 580 75 Other: Voiding Method Indwelling Catheter Indwelling Catheter Indwelling Catheter ABP, PAP, CO, CI - Last Documented Arterial Blood Pressure 123/58 - Exam -GENERAL: The patient is status post tracheostomy, breathing quietly with no distress HEENT: Pupils are round and equally reacting to light. EOMI. No scleral icterus. No conjunctival pallor. Normocephalic, atraumatic. No pharyngeal erythema. No thyromegaly. CARDIOVASCULAR: S1 and S2 present. No murmurs, rubs, or gallops. PULMONARY: Chest is clear to auscultation, no wheezing or crackles. ABDOMEN: Soft, nontender, nondistended, normoactive bowel sounds. No palpable organomegaly. MUSCULOSKELETAL: No joint swelling or deformity. EXTREMITIES: No cyanosis, clubbing, or pedal edema. NEUROLOGICAL: Gross neurological examination did not reveal any focal deficits. SKIN: No rashes. no petechiae. - Labs CBC & Chem 7: 10/17/21 05:16 10/17/21 05:16 Assessment and Plan Assessment: Altered mental status secondary to metabolic encephalopathy, ruled out intercranial lesions Acute hypoxic respiratory failure secondary to COVID-19 pneumonia, still requiring tracheostomy and CPAP Status post tracheostomy and PEG tube placement Sepsis , resolved with treatment Hypotensive, improved Breakthrough seizure, history of previous seizures. On Keppra Unstageable sacral pressure ulcer Cardiomyopathy, EF of 30-35% Paroxysmal A. fib on Eliquis Acute kidney injury, improved with treatment History of coronary artery disease history of pulmonary embolism History 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 left foot drop Status post permanent pacemaker History of glaucoma but surgical intervention Plan: This is a pleasant 51 years old female who presents with altered mental status, pneumonia, UTI, possible stroke, seizure and possible covid pneumonia Continue with Keppra and neurology consult. Continue with mechanical ventilation via tracheostomy. 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 Continue same treatment. Continue with symptomatic treatment. Resume home medication. Monitor lytes and vitals. DVT and GI prophylaxis. Further recommendations depends on the clinical course of the patient DVT prophylaxis: Eliquis GI Prophylaxis: Ppi Prognosis is guarded
[2021-10-19] MEDS: LORazepam 2 MG/ML INJ IV SCH ×2 (00:40→07:57)
[2021-10-19] MEDS: HYDROmorphone 1 MG/ML 1 ML SYRINGE IVP SCH ×2 (04:29→08:01)
[2021-10-19 06:30] LABS: HCT 28.1 % (34.0-46.0); HGB 8.8 gm/dL (11.4-16.0); Hypochromasia Slight; MCH 31.4 pg (25.0-35.0); MCHC 31.5 g/dL (31.0-37.0); MCV 99.9 fL (80.0-100.0); Mean Platelet Volume 7.4; Platelet Count 438 k/uL (150-450); RBC 2.81 m/uL (3.80-5.40); RDW 14.9 % (11.5-15.5); WBC 7.6 k/uL (3.8-10.6)
[2021-10-19 06:52] LABS: ALT 33 U/L (4-34); AST 30 U/L (14-36); African American GFR (CKD) >90 (>60 ml/min/1.73 sqM); Albumin 3.1 g/dL (3.5-5.0); Alkaline Phosphatase 68 U/L (38-126); Anion Gap 7 mmol/L; Blood Urea Nitrogen 39 mg/dL (7-17); Carbon Dioxide 31 mmol/L (22-30); Chloride 99 mmol/L (98-107); Glucose 109 mg/dL (74-99); Non-African American GFR(CKD) >90 (>60 ml/min/1.73 sqM); Potassium 4.2 mmol/L (3.5-5.1); Sodium 137 mmol/L (137-145); Total Bilirubin 0.4 mg/dL (0.2-1.3); Total Protein 6.5 g/dL (6.3-8.2)
[2021-10-19] MEDS: AMIODARONE 200 MG TAB PO SCH (08:00)
[2021-10-19] MEDS: CHOLECALCIFEROL 125 MCG (5000 IU) TABLET PO SCH (08:00)
[2021-10-19] MEDS: METOPROLOL TARTRATE 25 MG TAB PO SCH ×2 (08:00→20:03)
[2021-10-19] MEDS: QUEtiapine 100 MG TAB PO SCH ×3 (08:00→21:41)
[2021-10-19] MEDS: APIXABAN 5 MG TAB PO SCH ×2 (08:00→20:03)
[2021-10-19] MEDS: carBAMazepine 200 MG TAB PO SCH ×3 (08:00→21:41)
[2021-10-19] MEDS: PANTOPRAZOLE 40 MG/10 ML VIAL IV SCH (08:01)
--- NOTE | 2021-10-19 08:10 | XR ---
EXAMINATION TYPE: XR chest 1V portable DATE OF EXAM: 10/19/2021 COMPARISON: X-ray dated 04/16/2022 HISTORY: Covid 19 Pneumonia TECHNIQUE: Single frontal view of the chest is obtained. FINDINGS: Unchanged position of the tracheostomy tube, right PICC line and left chest wall single lead pacemake r. The left lower lung zone is partially obscured. Increased density in the left lower lung zone with possible right basal pulmonary atelectasis. No progressive consolidation identified otherwise. Unchanged cardiomediastinal silhouette. Small left pleural effusion cannot be excluded. IMPRESSION: Minimal interval change as described above.
[2021-10-19] MEDS ORDERED: LORazepam 2 MG/ML INJ IV PRN (09:32)
--- NOTE | 2021-10-19 11:56 | P.PN ---
Subjective Progress Note Date: 10/19/21 Principal diagnosis: Acute COVID-19 pneumonia with acute hypoxic respiratory failure and altered mental status. 10/04/2021, the patient is being seen in follow-up in the intensive care unit. This morning, the patient remains off sedation. She is awake and alert. She remains on a pressure control mode of mechanical ventilation. She is at the rate of 16 with a pressure control of 18 with an FiO2 of 40% with a PEEP of 5. No blood gases available from today. Chest x-ray showing stable findings with a persistent left lower lobe effusion/consolidation. The patient started spiking temperature as of yesterday. T-max was at 11.9. She is still febrile with a temperature 100.1. I was not informed of this changes and the focal went right away to infectious disease. The patient was given 2 sets of blood cultures. Noted the patient was already receiving a combination of vancomycin and Eraxis. That is his sputum culture is still showing Radha. The patient has a PICC line in her right upper extremity. The exit site is dry clean and intact. No diarrhea. No other clear source of infection at this point in time. Infections on the case. Pro-calcitonin level will be checked. She remains hemodynamically stable. She is on no pressors. Cardiac rhythm is sinus with frequent PACs and PVCs. Fluid balance has been +1.2 L over the past 24 hours. Note that the patient's weaning parameters of the persistently weak. Nevertheless, she was able to tolerate a full total of 4 hours a pressure support mode of mechanical ventilation with a pressure support of 15 and a PEEP of 5 Reevaluated today on 10/05/2021, patient remains in the ICU, intubated, mechanically ventilated, she is extremely weak, but awake, follows all instructions, she is on pressure control mode of mechanical ventilation, with a pressure control of 16, inspiratory time of 0.9, FiO2 40%, PEEP of 5, her peak airway pressure is 25 plateau pressure is 13. ABG today showed a pO2 of 95 pCO2 of 38 pH of 7.50 however the patient is noted to be pulling less and less tidal volume, hence I increased her pressure control to 22, and she seems to be much better with a tidal volume up to 350 and sometimes 400s range. Patient remains on tube feeding at 35 mL/h using vital AF. Her IV fluid is 0.9 normal saline at 50 mL per hour. Patient is not requiring any pressors, she is not on any sedation, and I am empty to consider the patient for trial of pressure support and CPAP if possible. Again the patient is generally weak, but will give her trials of weaning hopefully beginning tomorrow. CBC today is relatively normal hemoglobin is 8.1. Electrolytes are normal renal profile is normal chest x-ray yesterday showed chronic emphysematous changes, chronic left basilar opacity demonstrated. And no acute change otherwise Reevaluated today on 10/06/2021, remains in the ICU, intubated and mechanically ventilated. Patient was given a trial of pressure support and CPAP yesterday she was on pressure support of 14 and CPAP of 5, tolerated that for about 5-6 hours. Patient was later noted to desaturate, and she was gagging on the tracheostomy tube, becoming a bit agitated, hence she was placed back on the pressure control mode of mechanical ventilation, she is now on pressure control of 22 inspiratory time of 0.9 seconds FiO2 40% PEEP of 5. ABG today showed a pO2 of 105 pCO2 of 36 pH of 7.50. Her peak airway pressure is 28 plateau pressure is 22. Patient is on tube feeding, she is receiving vital AF 42 mL per hour. My plan today is to place the patient back on pressure support of 14 and CPAP, with FiO2 of 40%. Patient is not requiring any sedation, she is not on any major drips. Her IV fluid is 0.9 normal saline at 50 mL per hour. Mentation seems to be much improved compared to baseline, and she continues to do well mentally over the last 24 hours. She is alert, appropriate, follows all simple instructions. Chest x-ray showed chronic changes and chronic left basila r opacity. Not much different compared to the last few days. WBC count is 5.6 hemoglobin is 8.4 electrolytes are normal renal profile is normal ABG showed a pO2 of 105 pCO2 of 36 pH of 7.50. Reevaluated today on 10/07/2021, patient remains in the ICU, intubated and mechanically ventilated. Yesterday the patient went on pressure support 14 and CPAP, and this was tolerated for about 12 hours. Today I plan to place the patient on trach collar. Presently she is on pressure control mode of mechan ical ventilation with a pressure control set at 22 TI of 0.9 FiO2 40% PEEP of 5. Rate is 36. No ABG was done today. Her CBC is relatively unremarkable electrolytes are normal except for low potassium of 3.3 being corrected as per protocol. Patient remains on enteral feeding. No chest x-ray was done today. Patient remains on amiodarone, Eraxis, Eliquis, Tegretol, COVID-19 cocktail, Keppra, metoprolol, Protonix, vancomycin, Seroquel, Reevaluated today on 10/08/2021, patient remains in the ICU, she has been on trach collar now for the last 2 days, seems to be tolerating trach collar quite well. However this morning the patient seems to be a bit restless, tachypnea, ABG was reasonable with a pO2 of 70 pCO2 44 pH of 7.44 and this was on 35% FiO2. But considering the patient seems to be a bit restless, Iressa the patient back on her previous mode of mechanical ventilation. Patient is back on pressure control mode of mechanical ventilation, and seems to be doing a bit better with a pressure control mode of ventilation. We will address the patient possibly for the rest of the day, and place her back on trach collar again. Labs today are unremarkable including electrolytes, renal profile, ABG as noted above. Patient remains on enteral feeding. Remained generally weak and debilitated. Reevaluated today on 10/09/2021, patient remains in the ICU, remains on ventilatory support, she is on pressure control of 22 inspiratory time of 0.9 FiO2 40% PEEP of 5. ABG today showed a pO2 of 131 pCO2 of 31 pH of 7.52. Patient is not requiring any pressors, she is not requiring any drips, no sedation is needed, she is still receiving tube feeding vital HPI 22 mL per hour. Patient had a relatively uneventful night, and we plan to place the patient back on a mode of weaning, and I plan to place her back either on a T piece orotracheal collar today. No ABG was done today. No chest x-ray was done. Chest x-ray from yesterday showed basically no change. Tracheostomy is intact. Reevaluated today on 10/10/2021, patient remains on TP, over the last 24 hours, tolerating weaning very well, seems to be quite agitated, and would like to go home. Patient is getting more agitated with the t piece itself, although she seems to be very comfortable and her O2 saturation is high in the 90s. Went ahead and recommended decannulation of the trach, and I removed the tracheostomy at bedside, and the sutures around the tracheostomy were also removed. Patient felt much better and she was switched to a nasal cannula. WBC count today is 6.6 hemoglobin 8.1 electrodes. Normal except for low potassium be corrected accordingly. Went ahead and discontinued his Eraxis, patient is on vancomycin, and hopefully that will be discontinued by infectious disease today on rounds. No chest x-ray was done today. But I reviewed the chest x-ray from yesterday Reevaluated today on 10/11/2021, patient remains in the ICU, yesterday I D cannulated the patient, however few hours later, the patient developed left lower lobe atelectasis/collapse, and she was having hard time breathing, she cou ld not clear any of her secretions. Patient was very weak, and she had a very ineffective cough. I was notified about this patient by the nurse and by respiratory therapy, I recommended that the patient gets her trach placed back again. And this time she is to have a size 6 a size 7 Shiley tube placed by respiratory therapy. Indeed the patient had a size 6 placed, placed back on mechanical ventilation overnight, since she was agitated we added Precedex overnight. Remains on the vent overnight, and she is on Precedex. Her ABG today showed a pO2 of 105, pCO2 34 pH of 7.51. This was on assist control mode of mechanical ventilation, she was on rate of 28 tidal volume 400 FiO2 40% and PEEP of 8. Then I recommended that we give the patient today another trial on trach collar but she is to be suctioned if she develops any shortness of breath or she develops worsening secretions. Patient remains on vital AF at 60 mL/h she was on a very low dose of norepinephrine at 0.02 which I have discontinued this morning. Chest x-ray is showing dramatic improvement in her left lower lobe atelectasis/collapse. But it is not fully completely resolved. Nonetheless the patient continues to have minimal atelectasis at the left base. WBC count today is 7 hemoglobin 7.2 electrolytes are normal renal profile is normal. Reevaluated today on 10/19/2021, patient remains in the ICU, she is on T PIECE, 40% FiO2, seems to be doing fairly well. Has been on this mode of weaning for the last 4 days, patient is being considered for half-way placement. Chest x-ray showed minimal atelectasis at the left base. Her CBC is relatively unremarkable hemoglobin is 8.8. Electrolytes are normal renal profile is normal and she is on vital AF at 60 mL per hour via PEG tube. Patient does not seem to be in distress, seated generally weak, hence am recommending placement of this patient in a half-way. In the meantime I will recommend that she gets transferred out of the ICU to a regular medical floor. Objective - Vital Signs Vital signs: Vital Signs Temp 98.4 F 10/19/21 08:00 Pulse 97 10/19/21 10:00 Resp 35 H 10/19/21 10:00 BP 96/56 10/19/21 10:00 Pulse Ox 99 10/19/21 10:00 Intake & Output 10/18/21 10/19/21 10/19/21 18:59 06:59 18:59 Intake Total 1000 1110 320 Output Total 595 555 160 Balance 405 555 160 Weight 55 kg Intake: IV 220 240 80 Sodium Chloride 0.9% 1, 220 240 80 000 ml @ 20 mls/hr IV . Q24H [facility] Rx#:[id number] Tube Feeding 780 780 240 Other 90 Output: Urine 595 555 160 Other: Voiding Method Indwelling Catheter Indwelling Catheter Indwelling Catheter ABP, PAP, CO, CI - Last Documented Arterial Blood Pressure 123/58 - Exam Physical Exam: Revealed a 51-year-old female on t peice 40%. Head: Atraumatic, normocephalic, tracheostomy tube is in place. HEENT:[Neck is supple.] [No neck masses.] [No thyromegaly.] [No JVD.] Chest: Symmetrical chest expansion, crackles at the bases. Psychiatric: Normal mood, normal affect, normal mental status. Cardiac Exam: [Normal S1 and S2, no S3 gallop, no murmur.] Abdomen: [Soft, nontender, no megaly, no rebound, no guarding, normal bowel sounds.] PEG tube is intact. Extremities: [No clubbing, no edema, no cyanosis.] Skin: No rashes. Neurological Exam: Alert oriented 3 no focal deficit. However the patient is generally weak - Labs CBC & Chem 7: 10/19/21 06:09 10/19/21 06:09 Labs: Abnormal Lab Results - Last 24 Hours (Table) 10/19/21 10/19/21 Range/Units 06:09 06:09 RBC 2.81 L (3.80-5.40) m/uL Hgb 8.8 L (11.4-16.0) gm/dL Hct 28.1 L (34.0-46.0) % Carbon Dioxide 31 H (22-30) mmol/L BUN 39 H (7-17) mg/dL Creatinine 0.45 L (0.52-1.04) mg/dL Glucose 109 H (74-99) mg/dL Albumin 3.1 L (3.5-5.0) g/dL Assessment and Plan Assessment: Impression: Acute hypoxic respiratory failure secondary to COVID-19 pneumonia, intubated on 09/11/2021, status post tracheostomy and PEG tube placement on 09/23, presently on t peice , at 40% Altered mental status, acute toxic metabolic encephalopathy. No acute CVA noted on brain CT. significantly improved. Acute COVID-19 pneumonia, resolved. History of seizure activity. Under control. Previous history of pulmonary embolism, on long-term treatment with Eliquis. Paroxysmal atrial fibrillation Cardiomyopathy and LV dysfunction with ejection fraction of 30-35%. History of pacemaker implantation. 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 Recommendation: Continue 40% FiO2 t peice Continue Eliquis. Continue Keppra And Tegretol. continue enteral feeding , via PEG tube. Continue physical therapy. Continue Seroquel Continue trach care, arrange for transfer to a regular medical floor, Arrange for transfer to a half-way. And she will need long-term rehab. Time with Patient: Less than 30
[2021-10-19] MEDS: SODIUM CHLORIDE 0.9% 1,000 ML IV SCH (12:46)
--- NOTE | 2021-10-19 14:14 | P.PN ---
Subjective Progress Note Date: 10/19/21 CHIEF COMPLAINT: COVID-19 pneumonia HISTORY OF PRESENT ILLNESS: Patient remains in the ICU currently on trach piece. Patient is status post tracheostomy and PEG tube placement on 09/23/21. Patient is tolerating tube feedings. They're planning to transfer patient out of the ICU hopefully today. Social work working on ECF placement and needing long-term rehab. PHYSICAL EXAM: VITAL SIGNS: Reviewed. GENERAL:no acute distress. HEENT: Moist buccal mucosa. Head is atraumatic, normocephalic. Tracheostomy site clean and intact. ABDOMEN: Soft. Nondistended. PEG tube site clean dry and intact. Bolster at 3cm NEUROLOGIC: awake ASSESSMENT: 1. Acute hypoxic respiratory failure secondary to COVID-19 pneumonia requiring mechanical ventilation 2. Severe protein calorie malnutrition PLAN: -Continue tube feedings -Continue ICU management -Continue supportive care Physician Lead Generation Representative note has been reviewed by physician. Signing provider agrees with the documented findings, assessment, and plan of care. Objective - Vital Signs Vital signs: Vital Signs Temp 98.7 F 10/19/21 12:00 Pulse 86 10/19/21 13:00 Resp 25 H 10/19/21 13:00 BP 118/72 10/19/21 13:00 Pulse Ox 95 10/19/21 13:00 Intake & Output 10/18/21 10/19/21 10/19/21 18:59 06:59 18:59 Intake Total 1000 1110 560 Output Total 595 555 260 Balance 405 555 300 Weight 55 kg 55 kg Intake: IV 220 240 140 Sodium Chloride 0.9% 1, 220 240 140 000 ml @ 20 mls/hr IV . Q24H [facility] Rx#:[id number] Tube Feeding 780 780 420 Other 90 Output: Urine 595 555 260 Other: Voiding Method Indwelling Catheter Indwelling Catheter Indwelling Catheter ABP, PAP, CO, CI - Last Documented Arterial Blood Pressure 123/58 - Labs CBC & Chem 7: 10/19/21 06:09 10/19/21 06:09 Labs: Abnormal Lab Results - Last 24 Hours (Table) 10/19/21 10/19/21 Range/Units 06:09 06:09 RBC 2.81 L (3.80-5.40) m/uL Hgb 8.8 L (11.4-16.0) gm/dL Hct 28.1 L (34.0-46.0) % Carbon Dioxide 31 H (22-30) mmol/L BUN 39 H (7-17) mg/dL Creatinine 0.45 L (0.52-1.04) mg/dL Glucose 109 H (74-99) mg/dL Albumin 3.1 L (3.5-5.0) g/dL
[2021-10-19] MEDS: HYDROmorphone 1 MG/ML 1 ML SYRINGE IVP PRN ×2 (14:22→21:41)
--- NOTE | 2021-10-19 18:31 | P.PN ---
Subjective This is a pleasant 51 years old female with past medical history of Coronary Artery Disease, Heart Failure, CVA/TIA, Pulmonary Embolus (PE), Seizure Disorder, Last seizure 2009, CVA 2007 with L sided weakness arm and leg and has L foot drop, TIA 2018, cardiomyopathy, R PE and pneumothorax/pneumonia following leg fracture in 1994, gestational diabetes with all pregnancies , bilateral glaucoma with surgery, psoriasis in the past, UTIs. She is a status post Pacemaker, history of Bilateral eye surgery for glaucoma, Anxiety, Depression, Current every day smoker Patient presents because of altered mental status. Information was limited from the patient. It was obtained from the chart and medical staff. Also as per family patient was able to go to the bathroom, was more lethargic and tired over the last day. While in the emergency room focal mild seizure is noticed On admission patient had and fever of 101. She is tachypneic at 26-40, tachycardic 110-140, also she is hypoxic saturating 72% on room air Labs showing WBC of 10.5, hemoglobin of 16.3, platelet count of 197. INR 1.7. Sodium 164, creatinine 1.7, lactic acid elevated 4.6. Liver enzymes elevated with AST 202 and ALT 81. Bilirubin is normal at 1.3. Urine analysis is highly suspicious of infection Urine drug screen is negative Cash versus positive Chest x-ray showing left perihilar and left lower lobe area of infiltrate and small effusion correlates for pneumonia CT of the brain without contrast showing no intracranial hemorrhage, evidence of remote ischemic change. However there is vague low attenuation near the left thalamus and left cerebral peduncle. Acute ischemia in the differential diagnosis. Recommend stat MRI of brain with MRSA red devil of [place] as clinically warranted. In the emergency room patient was started on aztreonam and IV vancomycin, Keppra and heparin drip 09/11/2021 Patient today was still in the ICU, she was very weak and obtunded, she will wake up to certain stabilized and moans, she does not follow commands she cannot, gait she moved both extremities symmetrically. R on she had collapse of her left lung cancer and she has to be intubated and repeat chest x-ray showing better. A of the left lung. She is tachypneic with a breathing rate 22, no more fever since yesterday. Her sodium improved down to 144 and she was started on normal saline, creatinine 1.1, Ejection fraction showed 30-35% which is slice worsened from 06/2021 where it was 35-40% She remains on dexamethasone, IV vancomycin and clindamycin, heparin drip, Keppra and normal saline at 75 mL/h 09/12/2021 Patient with respiratory failures and she was intubated and placed on mechanical ventilation with pulmonary/critical care team following her mostly. There is no more seizure-like activity noticed. She still tachypneic with a breathing rate of 32 blood pressure 100/70, she is needing FiO2 of 80% and PEEP of 20. She has no more fevers since admission. Urine culture is growing gram-negative bacilli. Sodium is 146, WBCs is increased at 16.5 K. PH showing acidosis with 7.1 and elevated pCO2 at 83. Chest x-ray showing left sided opacities with near full. A of the left lung. Patient kept on antibiotics in the form of clindamycin and Levaquin and fluconazole. Also she remains on dexamethasone, and so a heparin to Lovenox. Also continued on seizure medication 1500 mg twice a day and IV fluids per pulmonary team. Neurology team on the case 09/13/2021 Patient remains intubated and sedated with pulmonary/critical care team following her closely. Her PEEP is lower today to 18. She remains on FiO2 of 50%. She is tachypneic at 32 about blood pressure is controlled. Her inflammatory markers are increased to LDH of 1009 and CRP of 25.1. Bicarb is elevated at 31 WBC is 17.7, sodium improved to 142. Creatinine improved to 0.6. Chest x-ray showed improving left lung infiltrate. PH is improved slightly 7.2 with pCO2 is slightly better at 79. Urine culture is growing E. coli which is sensitive to the antibiotics. Currently patient is covered with clindamycin, Levaquin and fluconazole. Also she is on dexamethasone 6 mg, Keppra 1500 mg and half-normal saline at 50 mL per hour Anticoagulation switch from heparin drip and to Lovenox 09/14/2021 Patient still intubated and sedated on mechanical ventilation with pulmonary/critical care team following her closely and just her vent setting. Today her FiO2 of 55%, and she is tachypneic at 33 breath per minute. Labs showing stable findings with sodium 141, creatinine 0.8, liver enzymes slightly elevated, LDH slightly down at 797 and CRP 2-3.2. Same leukocytosis at 14.7. Her pH is 7.2 and carbon dioxide is 82. D-dimer mildly elevated at 0.9, just x-ray showing bilateral infiltrate with no significant change from prior. She remains on the same antibiotic of clindamycin, Levaquin, dexamethasone, Keppra 1500 mg and half normal saline at 50 mL/h 09/15/2021 Patient in the ICU intubated and sedated, with pulmonary/critical care team following closely. FiO2 still 50%, hemodynamically showing both staple blood pressure 101/40, patient is tachypneic more than 30 per minutes. PEEP is lower. wbc of 11.3, hemoglobin 9.4, sodium 140, creatinine 0.8. chest x-ray: mild worsening infiltrate in the left lobe. patient continued with the same treatment of clindamycin, levaquin, dexamethasone, keppra and she received 1 l of normal saline today. 10/17/2021 Patient remains in the ICU in critical condition although slightly improving requiring mechanical ventilation via tracheostomy with a lot of secretion. FiO2 40% Hemoglobin 9.6 down to 8.7, rest of labs looks stable, chest x-ray is stable with no change showing left lower lobe opacity Patient remains receiving vitamin C, D and zinc for her, and infection as well as Eliquis, Keppra 1500 mg, amiodarone for her A. fib. Also patient Agitation at times requiring Seroquel, Ativan and Dilaudid 10/18/2021 Patient remains in the ICU on mechanical ventilation with pulmonary/critical care team following her closely and help with ICU management. She still tachypneic and FiO2 40-60% per pulmonary team. Labs are stable. She remains on Eliquis 5 mg and vitamins and Keppra. Seroquel increased today by pulmonary team 10/19/2021 Patient remains in the ICU O on mechanical ventilation via tracheostomy with pulmonary/critical care team following her closely. She is hemodynamically stable, slightly tachypneic, FiO2 of 40% Hemoglobin is stable at 8.8 Currently on Eliquis 5 mg, multiple vitamins, Keppra, Seroquel, Dilaudid and Ativan X-ray showing increased density in the left lower lung zone but it is a slight only. Clinically looks the same Plan for transfer to long-term rehab but currently patient can be discharged out of the ICU once cleared by critical care team Objective - Vital Signs Vital signs: Vital Signs Temp 98.4 F 10/19/21 08:00 Pulse 97 10/19/21 10:00 Resp 35 H 10/19/21 10:00 BP 96/56 10/19/21 10:00 Pulse Ox 99 10/19/21 10:00 Intake & Output 10/18/21 10/19/21 10/19/21 18:59 06:59 18:59 Intake Total 1000 1110 320 Output Total 595 555 160 Balance 405 555 160 Weight 55 kg Intake: IV 220 240 80 Sodium Chloride 0.9% 1, 220 240 80 000 ml @ 20 mls/hr IV . Q24H [facility] Rx#:[id number] Tube Feeding 780 780 240 Other 90 Output: Urine 595 555 160 Other: Voiding Method Indwelling Catheter Indwelling Catheter Indwelling Catheter ABP, PAP, CO, CI - Last Documented Arterial Blood Pressure 123/58 - Exam -GENERAL: The patient is status post tracheostomy, breathing quietly with no distress HEENT: Pupils are round and equally reacting to light. EOMI. No scleral icterus. No conjunctival pallor. Normocephalic, atraumatic. No pharyngeal erythema. No thyromegaly. CARDIOVASCULAR: S1 and S2 present. No murmurs, rubs, or gallops. PULMONARY: Chest is clear to auscultation, no wheezing or crackles. ABDOMEN: Soft, nontender, nondistended, normoactive bowel sounds. No palpable organomegaly. MUSCULOSKELETAL: No joint swelling or deformity. EXTREMITIES: No cyanosis, clubbing, or pedal edema. NEUROLOGICAL: Gross neurological examination did not reveal any focal deficits. SKIN: No rashes. no petechiae. - Labs CBC & Chem 7: 10/19/21 06:09 10/19/21 06:09 Labs: Abnormal Lab Results - Last 24 Hours (Table) 10/19/21 10/19/21 Range/Units 06:09 06:09 RBC 2.81 L (3.80-5.40) m/uL Hgb 8.8 L (11.4-16.0) gm/dL Hct 28.1 L (34.0-46.0) % Carbon Dioxide 31 H (22-30) mmol/L BUN 39 H (7-17) mg/dL Creatinine 0.45 L (0.52-1.04) mg/dL Glucose 109 H (74-99) mg/dL Albumin 3.1 L (3.5-5.0) g/dL Assessment and Plan Assessment: Altered mental status secondary to metabolic encephalopathy, ruled out intercranial lesions Acute hypoxic respiratory failure secondary to COVID-19 pneumonia, still requiring tracheostomy and CPAP Status post tracheostomy and PEG tube placement Sepsis , resolved with treatment Hypotensive, improved Breakthrough seizure, history of previous seizures. On Keppra Unstageable sacral pressure ulcer Cardiomyopathy, EF of 30-35% Paroxysmal A. fib on Eliquis Acute kidney injury, improved with treatment History of coronary artery disease history of pulmonary embolism History 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 left foot drop Status post permanent pacemaker History of glaucoma but surgical intervention Plan: This is a pleasant 51 years old female who presents with altered mental status, pneumonia, UTI, possible stroke, seizure and possible covid pneumonia Continue with Keppra and neurology consult. Continue with mechanical ventilation via tracheostomy. 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 Continue same treatment. Continue with symptomatic treatment. Resume home medication. Monitor lytes and vitals. DVT and GI prophylaxis. Further recommendations depends on the clinical course of the patient DVT prophylaxis: Eliquis GI Prophylaxis: Ppi Prognosis is guarded Patient will benefit from long-term rehab
[2021-10-19] MEDS: ACETAMINOPHEN TAB 325 MG TAB PO PRN (20:03)
[2021-10-20 07:01] LABS: Glucose,Whole Blood 152 mg/dL (75-99)
[2021-10-20] MEDS: APIXABAN 5 MG TAB PO SCH ×2 (10:47→20:35)
[2021-10-20] MEDS: AMIODARONE 200 MG TAB PO SCH (10:47)
[2021-10-20] MEDS: METOPROLOL TARTRATE 25 MG TAB PO SCH ×2 (10:48→20:35)
[2021-10-20] MEDS: CHOLECALCIFEROL 125 MCG (5000 IU) TABLET PO SCH (10:49)
[2021-10-20] MEDS: PANTOPRAZOLE 40 MG/10 ML VIAL IV SCH (10:49)
[2021-10-20 11:31] LABS: Glucose,Whole Blood 152 mg/dL (75-99)
[2021-10-20] MEDS: carBAMazepine 200 MG TAB PO SCH ×3 (11:53→20:36)
[2021-10-20] MEDS: QUEtiapine 100 MG TAB PO SCH ×2 (11:53→20:36)
[2021-10-20] MEDS: HYDROmorphone 1 MG/ML 1 ML SYRINGE IVP PRN (12:01)
--- NOTE | 2021-10-20 12:44 | P.PN ---
Subjective Progress Note Date: 10/20/21 Principal diagnosis: The patient is seen today 10/20/2021 in follow-up in the regular medical floor. She is currently sitting up in bed. Awake and alert in no acute distress. She is a bit agitated this morning. She is hoping to go home. Will most likely need subacute rehabilitation for safety issues. She is remaining on a trach collar 40% FiO2. Blood glucose 152. Blood cultures reveal no growth. She remains on the anticoagulated with Eliquis. Remains on oral amiodarone. Dilaudid and Ativan as needed. Continued on Seroquel. Objective - Vital Signs Vital signs: Vital Signs Temp 99.7 F H 10/20/21 11:44 Pulse 124 H 10/20/21 11:57 Resp 19 10/20/21 11:57 BP 132/73 10/20/21 11:44 Pulse Ox 93 L 10/20/21 11:44 Intake & Output 10/19/21 10/20/21 10/20/21 18:59 06:59 18:59 Intake Total 960 80 Output Total 465 595 Balance 495 -515 Weight 55 kg Intake: IV 240 20 Sodium Chloride 0.9% 1, 240 20 000 ml @ 20 mls/hr IV . Q24H [facility] Rx#:[id number] Tube Feeding 720 60 Output: Urine 465 595 Other: Voiding Method Indwelling Catheter Indwelling Catheter Indwelling Catheter # Bowel Movements 1 ABP, PAP, CO, CI - Last Documented Arterial Blood Pressure 123/58 - Exam GENERAL EXAM: Alert, 51-year-old female patient, trach collar in place at 40% FiO2, comfortable in no apparent distress. HEAD: Normocephalic. EYES: Normal reaction of pupils, equal size. NOSE: Clear with pink turbinates. THROAT: The gastric tube secured in place. No erythema or exudates. NECK: No masses, no JVD. CHEST: No chest wall deformity. LUNGS: Equal air entry with scattered rhonchi. CVS: S1 and S2 normal with no audible murmur, regular rhythm. ABDOMEN: No hepatosplenomegaly, normal bowel sounds, no guarding or rigidity. SPINE: No scoliosis or deformity SKIN: Breakdown on the coccyx unstageable. CENTRAL NERVOUS SYSTEM: No focal deficits, previous CVA with left-sided weakness. EXTREMITIES: Left upper extremity remains weak from previous CVA There is no peripheral edema. Peripheral pulses are intact. - Labs CBC & Chem 7: 10/19/21 06:09 10/19/21 06:09 Labs: Abnormal Lab Results - Last 24 Hours (Table) 10/20/21 10/20/21 Range/Units 06:59 11:29 POC Glucose (mg/dL) 152 H 152 H (75-99) mg/dL Assessment and Plan Assessment: 1 Acute hypoxic respiratory failure secondary to COVID-19 pneumonia, intubated on 09/11/2021, status post tracheostomy and PEG tube placement on 09/23, presently on t peice , at 40% 2 Altered mental status, acute toxic metabolic encephalopathy. No acute CVA noted on brain CT. significantly improved. 3 Acute COVID-19 pneumonia, resolved. 4 History of seizure activity. Under control. 5 Previous history of pulmonary embolism, on long-term treatment with Eliquis. 6 Paroxysmal atrial fibrillation 7 Cardiomyopathy and LV dysfunction with ejection fraction of 30-35%. 8 History of pacemaker implantation. 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 Plan: The patient was seen and evaluated Continues on 40% FiO2 Awaiting transfer to subacute rehabilitation Decrease Seroquel to 100 mg twice a day Anticoagulation with Eliquis Continue nutritional support via PEG tube Discharge planning is in place I, the cosigning physician, performed a history & physical examination of the patient. Lungs sounds with scattered rhonchi. Maintaining good O2 saturations in the 90s on 40% FiO2. I discussed the assessment and plan of care with my nurse practitioner, Gissell Hernandez. I attest to the above note as dictated by her. I have personally seen and examined the patient, performed the documentation and the assessment and plan as written. Number of minutes spent on the visit: 10.
--- NOTE | 2021-10-20 13:01 | P.PN ---
<Godwin, - Last Filed: 10/20/21 12:50> Subjective Progress Note Date: 10/20/21 Principal diagnosis: Altered mental status Patient is a 51-year-old female presented to the emergency room with altered mental status, COVID-19 pneumonia, UTI, seizures and possible stroke. UTI and pneumonia have been treated, and sepsis resolved. 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 Patient has been in the hospital since September 10, 2021 and has had extensive evaluations and treatment. Patient has been followed by multiple consultants including intensive care/pulmonary, neurology, and surgical services. Hospitalists have been providing coverage from 09/10/2021 through 10/05/2021. Patient continues to require mechanical ventilation. Patient is status post PEG tube placement and tracheotomy placement. 10/06/21 Patient was seen and examined at bedside in the ICU. Continues to require mechanical ventilation via tracheostomy. FiO2 40%, PEEP 5, oxygen saturation 96%, blood pressure 149/82. She is alert, responds to name, and follows simple commands. Denies any acute symptoms, unable to speak, replies by shaking her head yes or no. Left-sided paralysis, right-sided weakness able to grasp fingers and wiggle toes on the right. White blood cell count 5.6, kidney fun ction improved the BUN 15, creatinine 0.3, liver enzymes continue to be elevated but improving. Plan was to discharge patient to [facility], insurance denied, awaiting clearance from social work. 10/07/21 Patient was seen and examined at bedside in ICU. Patient is resting comfortably, in no acute distress. Continues to require mechanical ventilation via tracheostomy. FiO2 40%, PEEP 5, oxygen saturation 95%, blood pressure 119/74. Patient is alert and oriented to self, able to follow simple commands. Continued left-sided paralysis, right-sided weakness. Potassium 3.3, was treated according to protocol. Kidney function remains stable, white count 7.1 today. Still waiting for insurance appeal for transfer to long-term acute care. 10/08/21 patient was seen and examined in ICU. Was up in the chair via rebecca lift, in mild distress. Oxygen saturation was declining to 70% while on trach collar. Patient was trying to say that she can't breathe and she needs help. Nurse and respiratory therapist assisted patient back on mechanical ventilation at previous settings, with improvement of oxygen saturation. Patient was alert and oriented to self.continued right-sided weakness and left-sided paralysis.potassium improved to 3.5.still awaiting insurance appeal for transfer to long-term acute care 10/09/2021 Patient was seen and examined at bedside in ICU. Resting comfortably in bed, in no acute distress. Alert and oriented to self. She was trying to say that she wants to go home. Continued right-sided weakness and left-sided paralysis. Continues to require mechanical ventilation via tracheostomy. FiO2 40% PEEP of 5. ABG was stable. Tolerating tube feeding via PEG tube. Awaiting insurance appeal for transfer to long-term [facility]. Hospitalist coverage 10/10/21-10/12/21 10/13/2021 Patient seen and examined at bedside in ICU. Patient lethargic, not answering questions, arises to touch but then falls back asleep. Spoke with nurse regarding patient's status over the weekend, chest painting leader to try to decannulate the patient, became hypoxic and needed trach replaced. Today patient is on CPAP via tracheostomy, rate of 28, tidal volume 400, FiO2 40%, and PEEP of 8. We'll continue following pulmonary's recommendations. Blood Pressure was decreased on exam, already being treated with fluid bolus. Will follow chest painting leader recommendations for pressure control. Still waiting for insurance clearance for long-term acute care transfer. 10/14/21 Patient was seen and examined at bedside in ICU. Was resting in bed, no acute distress. Awoke to name and touch, oriented to self, followed simple commands. She was trying to verbalize that she wants to home. Continued right-sided weakness, left-sided paralysis. She was weaned to a t-piece at 50%, saturating well. Has been off the ventilator more than 24 hours. We will continue to follow pulmonary recommendations. 10/15/2021 Patient was seen and examined at bedside in ICU. Resting in bed in no acute distress. Alert and oriented to self, following simple commands. Continued right-sided weakness, left-sided paralysis. Has been maintaining oxygenation with T piece at 50%. Attempting to wean to trach collar. Patient still trying to verbalize that she wants to go home. Chest x-ray shows no changes from previous exam. We'll continue following chest painting leader recommendations. 10/16/2021 Patient was seen and examined at bedside. Patient is lethargic, responds to touch falls because sleep. Did not follow commands. Continues to have right- sided weakness left-sided paralysis. Continues to require T piece of 50%. Lab results reviewed, hemoglobin stable at 9.6, slight increase of BUN and creatin ine at 32 and 0.44. Potassium and magnesium stable at 4.8 and 2.0. We'll continue to monitor kidney function for any changes. Hospitalist coverage 10/17/21-10/19/21 10/20/2021 Patient was seen and examined at bedside. Patient is out of ICU on medical floor. Patient was agitated and upset, stating she wants to go home, that she has been here for over 3 days and needs to go home. She was told that she has been in the hospital for 40 days and she states it has only been three. Patient is agitated, stating she does not have insurance. Patient continues to have right-sided weakness and left-sided paralysis. Patient has been weaned down to trach collar 40% FiO2. Continues to require tube feeding. Plan was to discharge to subacute rehab, psych consult was ordered to evaluate patient's ability to make choices for herself because she wants to go home. Objective - Vital Signs Vital signs: Vital Signs Temp 99.7 F H 10/20/21 11:44 Pulse 124 H 10/20/21 11:57 Resp 19 10/20/21 11:57 BP 132/73 10/20/21 11:44 Pulse Ox 93 L 10/20/21 11:44 Intake & Output 10/19/21 10/20/21 10/20/21 18:59 06:59 18:59 Intake Total 960 80 Output Total 465 595 Balance 495 -515 Weight 55 kg Intake: IV 240 20 Sodium Chloride 0.9% 1, 240 20 000 ml @ 20 mls/hr IV . Q24H [facility] Rx#:[id number] Tube Feeding 720 60 Output: Urine 465 595 Other: Voiding Method Indwelling Catheter Indwelling Catheter Indwelling Catheter # Bowel Movements 1 ABP, PAP, CO, CI - Last Documented Arterial Blood Pressure 123/58 - Constitutional General appearance: Present: no acute distress - EENT Eyes: Present: EOMI, PERRLA ENT: Present: normal oropharynx Ears: bilateral: normal - Neck Details: Trach collar in place, moderate amount of drainage from tracheostomy - Respiratory Respiratory: bilateral: diminished, rhonchi - Cardiovascular Rhythm: regular Heart sounds: normal: S1, S2 - Peripheral pulses radial pulse Peripheral Pulses: bilateral: Normal - Gastrointestinal Gastrointestinal Comment(s): PEG tube in place General gastrointestinal: Present: soft - Integumentary Integumentary: Present: normal turgor - Neurologic Neurologic: Present: focal deficits - Musculoskeletal Musculoskeletal: Present: right sided weakness, left sided weakness (Paralysis) - Psychiatric Psychiatric Comment(s): Oriented to self - Allied health notes Allied health notes reviewed: nursing - Labs CBC & Chem 7: 10/19/21 06:09 10/19/21 06:09 Labs: Abnormal Lab Results - Last 24 Hours (Table) 10/20/21 10/20/21 Range/Units 06:59 11:29 POC Glucose (mg/dL) 152 H 152 H (75-99) mg/dL Assessment and Plan Assessment: Altered mental status secondary to metabolic encephalopathy, ruled out intercranial lesions Acute hypoxic respiratory failure secondary to COVID-19 pneumonia, still requiring tracheostomy Status post tracheostomy and PEG tube placement Sepsis secondary to UTI and COVID-19 pneumonia, resolved with treatment Breakthrough seizure, history of previous seizures Unstageable sacral pressure ulcer Cardiomyopathy, EF of 30-35% Acute kidney injury, improved with treatment History of coronary artery disease history of pulmonary embolism History 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 left foot drop Status post permanent pacemaker History of glaucoma but surgical intervention Full code Plan: She continues to require tracheostomy, has been weaned to 40% FiO2 with T piece, continue following pulmonary recommendations Antibiotic, vanco, and antifungal treatment for pneumonia per infectious disease recommendations Psychiatry consult ordered to determine cognitive ability Continue tube feedings, following dietitian recommendations Continue current medication regimen Continue monitoring her mental status for any changes Continue Wound care for unstageable sacral pressure wound Discharge to subacute rehab versus home with home care based on cognitive evaluation Further recommendations to come based on patient's clinical course Time with Patient: Greater than 30 <Garth Auguste - Last Filed: 10/22/21 19:31> Subjective I have personally seen and examined the patient, reviewed the documentation and agree with the assessment and plan as written. Number of minutes spent on the visit: greater than 15. Objective - Vital Signs Vital signs: Vital Signs Temp 98.0 F 10/22/21 12:17 Pulse 94 10/22/21 12:17 Resp 18 10/22/21 12:17 BP 114/64 10/22/21 12:17 Pulse Ox 93 L 10/22/21 12:17 Intake & Output 10/22/21 10/22/21 10/23/21 06:59 18:59 06:59 Intake Total 1200 960 Output Total 1 1 Balance 1199 959 Weight 55 kg Intake: Oral 0 Tube Feeding 1200 960 Output: Stool 1 1 Other: Voiding Method Diaper Bedpan Diaper # Voids 2 1 # Bowel Movements 1 ABP, PAP, CO, CI - Last Documented Arterial Blood Pressure 123/58 - Labs CBC & Chem 7: 10/22/21 06:37 10/22/21 06:37 Labs: Abnormal Lab Results - Last 24 Hours (Table) 10/21/21 10/22/21 10/22/21 Range/Units 23:49 06:37 06:37 RBC 2.92 L (4.10-5.20) X 10*6/uL Hgb 8.8 L (12.0-15.0) g/dL Hct 29.6 L (37.2-46.3) % MCV 101.4 H (80.0-97.0) fL MCHC 29.7 L (32.0-37.0) g/dL RDW 15.2 H (11.5-14.5) % Eosinophils # 0.45 H (0.04-0.35) X 10*3/uL Carbon Dioxide 27.6 H (20.0-27.5) mmol/L BUN 34.5 H (9.0-27.0) mg/dL Creatinine 0.5 L (0.6-1.5) mg/dL BUN/Creatinine Ratio 69.00 H (12.00-20.00) Ratio POC Glucose (mg/dL) 130 H (75-99) mg/dL 10/22/21 10/22/21 Range/Units 11:56 18:02 RBC (4.10-5.20) X 10*6/uL Hgb (12.0-15.0) g/dL Hct (37.2-46.3) % MCV (80.0-97.0) fL MCHC (32.0-37.0) g/dL RDW (11.5-14.5) % Eosinophils # (0.04-0.35) X 10*3/uL Carbon Dioxide (20.0-27.5) mmol/L BUN (9.0-27.0) mg/dL Creatinine (0.6-1.5) mg/dL BUN/Creatinine Ratio (12.00-20.00) Ratio POC Glucose (mg/dL) 137 H 108 H (75-99) mg/dL
[2021-10-20] MEDS: SODIUM CHLORIDE 0.9% 1,000 ML IV SCH (13:21)
--- NOTE | 2021-10-20 13:41 | P.CN ---
Psychiatric Consult - . Consult date: 10/20/21 Consult:: 10/20/21 13:40 IDENTIFYING DATA: This patient is a single, unemployed, 51-year-old female with a significant history of seizure disorder who presents to the emergency department with altered mental status, COVID-19 pneumonia, UTI, and concerns for stroke. HISTORY OF PRESENT ILLNESS: The patient presented to the hospital on 09/10/2021 brought in for altered mental status. The patient has had a long and complicated hospitalization including ICU admission, PEG tube placement, and tracheostomy placement. Psychiatry has been consulted for evaluation of capacity. The patient has been recommended to be discharged to subacute rehab however has been requesting to go home and be with her father. Upon evaluation at bedside, the patient is currently alert and oriented in all spheres. She expresses that she would like to "leave this hospital." She is however agreeable to going to rehab following this hospitalization and expresses that she is just upset with how long she has been in this hospital and been away from her family. Furthermore, the patient reports that her mother in this hospital. She is agreeable at this time to treatment. She does acknowledge that if she does not follow with treatment recommendations she risks "." She was informed lack of rehab can lead to further detrioration in her physical health. PAST PSYCHIATRIC HISTORY: Patient has a history of anxiety and depression. PAST MEDICAL HISTORY: Past Medical History: Coronary Artery Disease (CAD), Heart Failure, CVA/TIA, Eye Disorder, Pneumonia, Pulmonary Embolus (PE), Seizure Disorder, Skin Disorder Additional Past Medical History / Comment(s): Last seizure 2009, CVA 2007 with L sided weakness arm and leg and has L foot drop, TIA 2018, cardiomyopathy, R PE and pneumothorax/pneumonia following leg fracture in 1994, gestational diabetes with all pregnancies (4), bilateral glaucoma with surgery, psoriasis in the past, UTIs. History of Any Multi-Drug Resistant Organisms: None Reported Past Surgical History: Pacemaker Additional Past Surgical History / Comment(s): Bilateral eye surgery for glaucoma Past Anesthesia/Blood Transfusion Reactions: No Reported Reaction Type of Cardiac Device: Permanent Pacemaker Device Placement Date:: 2012 Past Psychological History: Anxiety, Depression Smoking Status: Current every day smoker Past Alcohol Use History: Occasional Past Drug Use History: None Reported ALLERGIES: Cephalexin, penicillin CHEMICAL DEPENDENCY HISTORY: Every day smoker. SOCIAL HISTORY: Unable to obtain. MENTAL STATUS EXAM: General Appearance: Patient appears to be stated age is alert, pleasant, and cooperative. Patient appears to have disheveled hygiene and grooming wearing hospital gown with fair eye contact. Patient has a tracheostomy in place. Behavior: Patient is lying in bed with slightly elevated psychomotor activity. He appears to be restless. Speech: Patient's speech is minimal and low in volume secondary to tracheostomy. Mood/Affect: Patient reports their mood is "upset", affect is congruent and mildly irritable Suicidality/Homicidality: Patient denies having any suicidal or homicidal ideation intent or plan. Perceptions: Patient denies any visual hallucinations and denies any auditory hallucinations Though content/process: There is no evidence of any delusional thought content and thought process is linear and goal-directed. Memory and concentration: AOX3, grossly intact for the purposes of this session. Can spell "WORLD" backwards Judgment and insight: Fair IMPRESSIONS: Altered mental status secondary to metabolic encephalopathy, ruled out intercranial lesions, appears to be resolving Acute hypoxic respiratory failure secondary to COVID-19 pneumonia, still requiring tracheostomy Status post tracheostomy and PEG tube placement Sepsis secondary to UTI and COVID-19 pneumonia, resolved with treatment PLAN: -At this time patient DOES NOT meet criteria for inpatient psychiatric admission. -Patient DOES have decision making capacity at this time and is able to reason through and communicate/appreciate the risks, benefits and alternatives to treatment. She does identify her brother Rocky Campos as a surrogate medical decision maker should she be unable to make medical decisions for herself. She is agreeable to going to subacute rehab following this hospitalization at this time. -Psychiatry will sign off at this point, please contact with any questions. 10/20/21 13:41
[2021-10-20 17:22] LABS: Glucose,Whole Blood 133 mg/dL (75-99)
[2021-10-20] MEDS: HYDROcodone/APAP 15 ML SOLUTION PO PRN (17:25)
[2021-10-20] MEDS: ALPRAZolam 0.5 MG TAB PO PRN (20:35)
[2021-10-20 21:09] LABS: Glucose,Whole Blood 149 mg/dL (75-99)
[2021-10-21] MEDS: HYDROcodone/APAP 15 ML SOLUTION PO PRN ×3 (01:43→23:30)
[2021-10-21 05:17] LABS: Glucose,Whole Blood 114 mg/dL (75-99)
[2021-10-21] MEDS: PANTOPRAZOLE 40 MG/10 ML VIAL IV SCH (08:39)
[2021-10-21] MEDS: AMIODARONE 200 MG TAB PO SCH (08:39)
[2021-10-21] MEDS: METOPROLOL TARTRATE 25 MG TAB PO SCH ×2 (08:40→20:18)
[2021-10-21] MEDS: CHOLECALCIFEROL 125 MCG (5000 IU) TABLET PO SCH (08:40)
[2021-10-21] MEDS: carBAMazepine 200 MG TAB PO SCH ×3 (08:40→20:18)
[2021-10-21] MEDS: APIXABAN 5 MG TAB PO SCH ×2 (08:40→23:30)
[2021-10-21] MEDS: QUEtiapine 100 MG TAB PO SCH ×2 (08:41→20:18)
[2021-10-21] MEDS: ALPRAZolam 0.5 MG TAB PO PRN ×3 (09:44→20:18)
--- NOTE | 2021-10-21 11:03 | P.PN ---
Subjective Progress Note Date: 10/21/21 The patient is seen today 10/20/2021 in follow-up in the regular medical floor. She is currently sitting up in bed. Awake and alert in no acute distress. She is a bit agitated this morning. She is hoping to go home. Will most likely need subacute rehabilitation for safety issues. She is remaining on a trach collar 40% FiO2. Blood glucose 152. Blood cultures reveal no growth. She remains on the anticoagulated with Eliquis. Remains on oral amiodarone. Dilaudid and Ativan as needed. Continued on Seroquel. The patient is seen today 10/21/2021 in follow-up on the regular medical floor. She remains awake and alert in no acute distress. She was seen and evaluated by psychiatric services yesterday and is deemed to be able to make her own medical decisions. She is agreeable to subacute rehabilitation. Tracheostomy tube remains in place. She has a T piece on 40% FiO2. Follow-up sputum culture revealed no growth. Blood cultures revealed no growth. Blood glucose 114. She is continued on Seroquel at 100 mg twice a day. Anticoagulated with Eliquis. Continued on Keppra and Tegretol. No evidence of seizure activity. Objective - Vital Signs Vital signs: Vital Signs Temp 97.0 F L 10/21/21 02:00 Pulse 90 10/21/21 08:44 Resp 20 10/21/21 02:00 BP 135/81 10/21/21 08:44 Pulse Ox 100 10/21/21 02:00 Intake & Output 10/20/21 10/21/21 10/21/21 18:59 06:59 18:59 Intake Total 240 720 Output Total 500 351 Balance -260 369 Intake: IV 0 Sodium Chloride 0.9% 1, 0 000 ml @ 20 mls/hr IV . Q24H [facility] Rx#:[id number] Oral 0 0 Tube Feeding 240 720 Output: Urine 500 350 Stool 1 Other: Voiding Method Indwelling Catheter Indwelling Catheter # Bowel Movements 1 ABP, PAP, CO, CI - Last Documented Arterial Blood Pressure 123/58 - Exam GENERAL EXAM: Alert, 51-year-old female patient, T piece in place at 40% FiO2, comfortable in no apparent distress. HEAD: Normocephalic. EYES: Normal reaction of pupils, equal size. NOSE: Clear with pink turbinates. THROAT: The gastric tube secured in place. No erythema or exudates. Very poor dentition NECK: No masses, no JVD. CHEST: No chest wall deformity. LUNGS: Equal air entry with scattered rhonchi. CVS: S1 and S2 normal with no audible murmur, regular rhythm. ABDOMEN: No hepatosplenomegaly, normal bowel sounds, no guarding or rigidity. SPINE: No scoliosis or deformity SKIN: Breakdown on the coccyx unstageable. CENTRAL NERVOUS SYSTEM: No focal deficits, previous CVA with left-sided weakness. EXTREMITIES: Left upper extremity remains weak from previous CVA There is no peripheral edema. Peripheral pulses are intact. - Labs CBC & Chem 7: 10/19/21 06:09 10/19/21 06:09 Labs: Abnormal Lab Results - Last 24 Hours (Table) 10/20/21 10/20/21 10/20/21 Range/Units 11:29 17:15 20:55 POC Glucose (mg/dL) 152 H 133 H 149 H (75-99) mg/dL 10/21/21 Range/Units 05:11 POC Glucose (mg/dL) 114 H (75-99) mg/dL Assessment and Plan Assessment: 1 Acute hypoxic respiratory failure secondary to COVID-19 pneumonia, intubated on 09/11/2021, status post tracheostomy and PEG tube placement on 09/23, presently on t peice , at 40% 2 Altered mental status, acute toxic metabolic encephalopathy. No acute CVA noted on brain CT. Significantly improved. 3 Acute COVID-19 pneumonia, resolved. 4 History of seizure activity. Under control. 5 Previous history of pulmonary embolism, on long-term treatment with Eliquis. 6 Paroxysmal atrial fibrillation 7 Cardiomyopathy and LV dysfunction with ejection fraction of 30-35%. 8 History of pacemaker implantation. 9 History of saccular VINYL DIPPER aneurysm 4 mm 10 Hypothyroidism 11 Coronary artery disease 12 History of CVA in 2007 13 History of psoriasis 14 Sacral /coccygeal decubitus ulcer, unstageable. Plan: The patient was seen and evaluated Continues on 40% FiO2 via T piece Awaiting transfer to subacute rehabilitation Decrease Seroquel to 50 mg twice a day Anticoagulation with Eliquis Continue nutritional support with vital AF via PEG tube Discharge planning is in place We will see as needed I, the cosigning physician, performed a history & physical examination of the patient. Lungs sounds with scattered rhonchi. Maintaining good O2 saturations in the 90s on 40% FiO2 via T piece. I discussed the assessment and plan of care with my nurse practitioner, Gissell Hernandez. I attest to the above note as dictated by her. I have personally seen and examined the patient, performed the documentation and the assessment and plan as written. Number of minutes spent on the visit: 10.
[2021-10-21 11:47] LABS: Glucose,Whole Blood 134 mg/dL (75-99)
--- NOTE | 2021-10-21 13:43 | P.PN ---
<Godwin, - Last Filed: 10/21/21 13:31> Subjective Progress Note Date: 10/21/21 Principal diagnosis: Altered mental status Patient is a 51-year-old female presented to the emergency room with altered mental status, COVID-19 pneumonia, UTI, seizures and possible stroke. UTI and pneumonia have been treated, and sepsis resolved. 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 Patient has been in the hospital since September 10, 2021 and has had extensive evaluations and treatment. Patient has been followed by multiple consultants including intensive care/pulmonary, neurology, and surgical services. Hospitalists have been providing coverage from 09/10/2021 through 10/05/2021. Patient continues to require mechanical ventilation. Patient is status post PEG tube placement and tracheotomy placement. 10/06/21 Patient was seen and examined at bedside in the ICU. Continues to require mechanical ventilation via tracheostomy. FiO2 40%, PEEP 5, oxygen saturation 96%, blood pressure 149/82. She is alert, responds to name, and follows simple commands. Denies any acute symptoms, unable to speak, replies by shaking her head yes or no. Left-sided paralysis, right-sided weakness able to grasp fingers and wiggle toes on the right. White blood cell count 5.6, kidney fun ction improved the BUN 15, creatinine 0.3, liver enzymes continue to be elevated but improving. Plan was to discharge patient to [facility], insurance denied, awaiting clearance from social work. 10/07/21 Patient was seen and examined at bedside in ICU. Patient is resting comfortably, in no acute distress. Continues to require mechanical ventilation via tracheostomy. FiO2 40%, PEEP 5, oxygen saturation 95%, blood pressure 119/74. Patient is alert and oriented to self, able to follow simple commands. Continued left-sided paralysis, right-sided weakness. Potassium 3.3, was treated according to protocol. Kidney function remains stable, white count 7.1 today. Still waiting for insurance appeal for transfer to long-term acute care. 10/08/21 patient was seen and examined in ICU. Was up in the chair via rebecca lift, in mild distress. Oxygen saturation was declining to 70% while on trach collar. Patient was trying to say that she can't breathe and she needs help. Nurse and respiratory therapist assisted patient back on mechanical ventilation at previous settings, with improvement of oxygen saturation. Patient was alert and oriented to self.continued right-sided weakness and left-sided paralysis.potassium improved to 3.5.still awaiting insurance appeal for transfer to long-term acute care 10/09/2021 Patient was seen and examined at bedside in ICU. Resting comfortably in bed, in no acute distress. Alert and oriented to self. She was trying to say that she wants to go home. Continued right-sided weakness and left-sided paralysis. Continues to require mechanical ventilation via tracheostomy. FiO2 40% PEEP of 5. ABG was stable. Tolerating tube feeding via PEG tube. Awaiting insurance appeal for transfer to long-term [facility]. Hospitalist coverage 10/10/21-10/12/21 10/13/2021 Patient seen and examined at bedside in ICU. Patient lethargic, not answering questions, arises to touch but then falls back asleep. Spoke with nurse regarding patient's status over the weekend, faculty instructor to try to decannulate the patient, became hypoxic and needed trach replaced. Today patient is on CPAP via tracheostomy, rate of 28, tidal volume 400, FiO2 40%, and PEEP of 8. We'll continue following pulmonary's recommendations. Blood Pressure was decreased on exam, already being treated with fluid bolus. Will follow faculty instructor recommendations for pressure control. Still waiting for insurance clearance for long-term acute care transfer. 10/14/21 Patient was seen and examined at bedside in ICU. Was resting in bed, no acute distress. Awoke to name and touch, oriented to self, followed simple commands. She was trying to verbalize that she wants to home. Continued right-sided weakness, left-sided paralysis. She was weaned to a t-piece at 50%, saturating well. Has been off the ventilator more than 24 hours. We will continue to follow pulmonary recommendations. 10/15/2021 Patient was seen and examined at bedside in ICU. Resting in bed in no acute distress. Alert and oriented to self, following simple commands. Continued right-sided weakness, left-sided paralysis. Has been maintaining oxygenation with T piece at 50%. Attempting to wean to trach collar. Patient still trying to verbalize that she wants to go home. Chest x-ray shows no changes from previous exam. We'll continue following faculty instructor recommendations. 10/16/2021 Patient was seen and examined at bedside. Patient is lethargic, responds to touch falls because sleep. Did not follow commands. Continues to have right- sided weakness left-sided paralysis. Continues to require T piece of 50%. Lab results reviewed, hemoglobin stable at 9.6, slight increase of BUN and creatin ine at 32 and 0.44. Potassium and magnesium stable at 4.8 and 2.0. We'll continue to monitor kidney function for any changes. Hospitalist coverage 10/17/21-10/19/21 10/20/2021 Patient was seen and examined at bedside. Patient is out of ICU on medical floor. Patient was agitated and upset, stating she wants to go home, that she has been here for over 3 days and needs to go home. She was told that she has been in the hospital for 40 days and she states it has only been three. Patient is agitated, stating she does not have insurance. Patient continues to have right-sided weakness and left-sided paralysis. Patient has been weaned down to trach collar 40% FiO2. Continues to require tube feeding. Plan was to discharge to subacute rehab, psych consult was ordered to evaluate patient's ability to make choices for herself because she wants to go home. 10/21/21 Patient was seen and evaluated at bedside. Patient was sitting up in the chair, continues to be agitated, stating she wants to go home. Patient is alert and oriented, psychiatry determine she is cognitively stable to make her own medical decisions. Social work is working on securing a subacute rehab but will accept her with her trach. pulmonary cleared her for [facility], awaiting site approval. Objective - Vital Signs Vital signs: Vital Signs Temp 97.0 F L 10/21/21 02:00 Pulse 90 10/21/21 08:44 Resp 18 10/21/21 08:00 BP 135/81 10/21/21 08:44 Pulse Ox 100 10/21/21 02:00 Intake & Output 10/20/21 10/21/21 10/21/21 18:59 06:59 18:59 Intake Total 240 720 Output Total 500 351 302 Balance -260 369 -302 Intake: IV 0 Sodium Chloride 0.9% 1, 0 000 ml @ 20 mls/hr IV . Q24H [facility] Rx#:[id number] Oral 0 0 Tube Feeding 240 720 Output: Urine 500 350 300 Stool 1 2 Other: Voiding Method Indwelling Catheter Indwelling Catheter Diaper # Bowel Movements 1 ABP, PAP, CO, CI - Last Documented Arterial Blood Pressure 123/58 - Constitutional General appearance: Present: no acute distress - EENT Eyes: Present: EOMI, PERRLA Ears: bilateral: normal - Neck Details: trach collar in place - Respiratory Respiratory: bilateral: diminished - Cardiovascular Heart rate: 90 Rhythm: regular Heart sounds: normal: S1, S2 - Peripheral pulses radial pulse Peripheral Pulses: bilateral: Normal - Gastrointestinal Gastrointestinal Comment(s): peg tube in place General gastrointestinal: Present: normal bowel sounds, soft - Integumentary Integumentary: Present: normal - Neurologic Neurologic: Present: focal deficits - Musculoskeletal Musculoskeletal: Present: right sided weakness, left sided weakness - Psychiatric Psychiatric: Present: A&O x's 3 - Allied health notes Allied health notes reviewed: social work - Labs CBC & Chem 7: 10/19/21 06:09 10/19/21 06:09 Labs: Abnormal Lab Results - Last 24 Hours (Table) 10/20/21 10/20/21 10/21/21 Range/Units 17:15 20:55 05:11 POC Glucose (mg/dL) 133 H 149 H 114 H (75-99) mg/dL 10/21/21 Range/Units 11:45 POC Glucose (mg/dL) 134 H (75-99) mg/dL Assessment and Plan Assessment: Altered mental status secondary to metabolic encephalopathy, ruled out intercranial lesions Acute hypoxic respiratory failure secondary to COVID-19 pneumonia, still requiring tracheostomy Status post tracheostomy and PEG tube placement Sepsis secondary to UTI and COVID-19 pneumonia, resolved with treatment Breakthrough seizure, history of previous seizures Unstageable sacral pressure ulcer Cardiomyopathy, EF of 30-35% Acute kidney injury, improved with treatment History of coronary artery disease history of pulmonary embolism History 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 left foot drop Status post permanent pacemaker History of glaucoma but surgical intervention Full code Plan: She continues to require tracheostomy, has been weaned to 40% FiO2 with T piece, continue following pulmonary recommendations Antibiotic, vanco, and antifungal treatment for pneumonia per infectious disease recommendations Psychiatry found patient has the cognitive ability to make own medical decisions Continue tube feedings, following dietitian recommendations Continue current medication regimen Continue monitoring her mental status for any changes Continue Wound care for unstageable sacral pressure wound Discharge to subacute rehab , waiting for accepting facility Further recommendations to come based on patient's clinical course Time with Patient: Greater than 30 <Garth Auguste - Last Filed: 10/22/21 19:26> Subjective I have personally seen and examined the patient, reviewed the documentation and agree with the assessment and plan as written. Number of minutes spent on the visit: [17]. Objective - Vital Signs Vital signs: Vital Signs Temp 98.0 F 10/22/21 12:17 Pulse 94 10/22/21 12:17 Resp 18 10/22/21 12:17 BP 114/64 10/22/21 12:17 Pulse Ox 93 L 10/22/21 12:17 Intake & Output 10/22/21 10/22/21 10/23/21 06:59 18:59 06:59 Intake Total 1200 960 Output Total 1 1 Balance 1199 959 Weight 55 kg Intake: Oral 0 Tube Feeding 1200 960 Output: Stool 1 1 Other: Voiding Method Diaper Bedpan Diaper # Voids 2 1 # Bowel Movements 1 ABP, PAP, CO, CI - Last Documented Arterial Blood Pressure 123/58 - Labs CBC & Chem 7: 10/22/21 06:37 10/22/21 06:37 Labs: Abnormal Lab Results - Last 24 Hours (Table) 10/21/21 10/22/21 10/22/21 Range/Units 23:49 06:37 06:37 RBC 2.92 L (4.10-5.20) X 10*6/uL Hgb 8.8 L (12.0-15.0) g/dL Hct 29.6 L (37.2-46.3) % MCV 101.4 H (80.0-97.0) fL MCHC 29.7 L (32.0-37.0) g/dL RDW 15.2 H (11.5-14.5) % Eosinophils # 0.45 H (0.04-0.35) X 10*3/uL Carbon Dioxide 27.6 H (20.0-27.5) mmol/L BUN 34.5 H (9.0-27.0) mg/dL Creatinine 0.5 L (0.6-1.5) mg/dL BUN/Creatinine Ratio 69.00 H (12.00-20.00) Ratio POC Glucose (mg/dL) 130 H (75-99) mg/dL 10/22/21 10/22/21 Range/Units 11:56 18:02 RBC (4.10-5.20) X 10*6/uL Hgb (12.0-15.0) g/dL Hct (37.2-46.3) % MCV (80.0-97.0) fL MCHC (32.0-37.0) g/dL RDW (11.5-14.5) % Eosinophils # (0.04-0.35) X 10*3/uL Carbon Dioxide (20.0-27.5) mmol/L BUN (9.0-27.0) mg/dL Creatinine (0.6-1.5) mg/dL BUN/Creatinine Ratio (12.00-20.00) Ratio POC Glucose (mg/dL) 137 H 108 H (75-99) mg/dL
[2021-10-21] MEDS: SODIUM CHLORIDE 0.9% 1,000 ML IV SCH (15:21)
[2021-10-21 18:13] LABS: Glucose,Whole Blood 108 mg/dL (75-99)
[2021-10-21 23:50] LABS: Glucose,Whole Blood 130 mg/dL (75-99)
[2021-10-22 09:31] LABS: Basophils # (A) 0.06 X 10*3/uL (0.00-0.10); Basophils % (A) 0.9 %; Eosinophils # (A) 0.45 X 10*3/uL (0.04-0.35); Eosinophils % (A) 6.6 %; HCT 29.6 % (37.2-46.3); HGB 8.8 g/dL (12.0-15.0); Immature Grans, Automated 0.4 %; Lymphocytes # (A) 1.28 X 10*3/uL (0.90-5.00); Lymphocytes % (A) 18.9 %; MCH 30.1 pg (27.0-32.0); MCHC 29.7 g/dL (32.0-37.0); MCV 101.4 fL (80.0-97.0); Mean Platelet Volume 10.4 fL (9.5-12.2); Monocytes # (A) 0.55 X 10*3/uL (0.20-1.00); Monocytes % (A) 8.1 %; NRBC Per 100 WBC 0 /100 WBCS (0.0-0.0); Neutrophils # (A) 4.42 X 10*3/uL (1.80-7.70); Neutrophils % (A) 65.1 %; Platelet Count 425 X 10*3/uL (140-440); RBC 2.92 X 10*6/uL (4.10-5.20); RDW 15.2 % (11.5-14.5); WBC 6.79 X 10*3/uL (4.50-10.00)
[2021-10-22] MEDS: PANTOPRAZOLE 40 MG/10 ML VIAL IV SCH (09:40)
[2021-10-22] MEDS: CHOLECALCIFEROL 125 MCG (5000 IU) TABLET PO SCH (09:43)
[2021-10-22] MEDS: APIXABAN 5 MG TAB PO SCH ×2 (09:44→20:11)
[2021-10-22] MEDS: METOPROLOL TARTRATE 25 MG TAB PO SCH ×2 (09:44→20:11)
[2021-10-22] MEDS: QUEtiapine 100 MG TAB PO SCH (09:45)
[2021-10-22] MEDS: carBAMazepine 200 MG TAB PO SCH ×3 (09:46→20:12)
[2021-10-22] MEDS: AMIODARONE 200 MG TAB PO SCH (09:46)
[2021-10-22 09:57] LABS: African American GFR (CKD) 130.8 (60.0-200.0); Anion Gap 13.4 mmol/L (10.00-18.00); Blood Urea Nitrogen 34.5 mg/dL (9.0-27.0); Calcium 9.4 mg/dL (8.7-10.3); Carbon Dioxide 27.6 mmol/L (20.0-27.5); Non-African American GFR(CKD) 112.9 (60.0-200.0); Potassium 3.9 mmol/L (3.5-5.5)
--- NOTE | 2021-10-22 11:34 | P.PN ---
<Godwin, - Last Filed: 10/22/21 11:26> Subjective Progress Note Date: 10/22/21 Principal diagnosis: Altered mental status Patient is a 51-year-old female presented to the emergency room with altered mental status, COVID-19 pneumonia, UTI, seizures and possible stroke. UTI and pneumonia have been treated, and sepsis resolved. 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 Patient has been in the hospital since September 10, 2021 and has had extensive evaluations and treatment. Patient has been followed by multiple consultants including intensive care/pulmonary, neurology, and surgical services. Hospitalists have been providing coverage from 09/10/2021 through 10/05/2021. Patient continues to require mechanical ventilation. Patient is status post PEG tube placement and tracheotomy placement. 10/06/21 Patient was seen and examined at bedside in the ICU. Continues to require mechanical ventilation via tracheostomy. FiO2 40%, PEEP 5, oxygen saturation 96%, blood pressure 149/82. She is alert, responds to name, and follows simple commands. Denies any acute symptoms, unable to speak, replies by shaking her head yes or no. Left-sided paralysis, right-sided weakness able to grasp fingers and wiggle toes on the right. White blood cell count 5.6, kidney fun ction improved the BUN 15, creatinine 0.3, liver enzymes continue to be elevated but improving. Plan was to discharge patient to [facility], insurance denied, awaiting clearance from social work. 10/07/21 Patient was seen and examined at bedside in ICU. Patient is resting comfortably, in no acute distress. Continues to require mechanical ventilation via tracheostomy. FiO2 40%, PEEP 5, oxygen saturation 95%, blood pressure 119/74. Patient is alert and oriented to self, able to follow simple commands. Continued left-sided paralysis, right-sided weakness. Potassium 3.3, was treated according to protocol. Kidney function remains stable, white count 7.1 today. Still waiting for insurance appeal for transfer to long-term acute care. 10/08/21 patient was seen and examined in ICU. Was up in the chair via rebecca lift, in mild distress. Oxygen saturation was declining to 70% while on trach collar. Patient was trying to say that she can't breathe and she needs help. Nurse and respiratory therapist assisted patient back on mechanical ventilation at previous settings, with improvement of oxygen saturation. Patient was alert and oriented to self.continued right-sided weakness and left-sided paralysis.potassium improved to 3.5.still awaiting insurance appeal for transfer to long-term acute care 10/09/2021 Patient was seen and examined at bedside in ICU. Resting comfortably in bed, in no acute distress. Alert and oriented to self. She was trying to say that she wants to go home. Continued right-sided weakness and left-sided paralysis. Continues to require mechanical ventilation via tracheostomy. FiO2 40% PEEP of 5. ABG was stable. Tolerating tube feeding via PEG tube. Awaiting insurance appeal for transfer to long-term [facility]. Hospitalist coverage 10/10/21-10/12/21 10/13/2021 Patient seen and examined at bedside in ICU. Patient lethargic, not answering questions, arises to touch but then falls back asleep. Spoke with nurse regarding patient's status over the weekend, crisis nurse to try to decannulate the patient, became hypoxic and needed trach replaced. Today patient is on CPAP via tracheostomy, rate of 28, tidal volume 400, FiO2 40%, and PEEP of 8. We'll continue following pulmonary's recommendations. Blood Pressure was decreased on exam, already being treated with fluid bolus. Will follow crisis nurse recommendations for pressure control. Still waiting for insurance clearance for long-term acute care transfer. 10/14/21 Patient was seen and examined at bedside in ICU. Was resting in bed, no acute distress. Awoke to name and touch, oriented to self, followed simple commands. She was trying to verbalize that she wants to home. Continued right-sided weakness, left-sided paralysis. She was weaned to a t-piece at 50%, saturating well. Has been off the ventilator more than 24 hours. We will continue to follow pulmonary recommendations. 10/15/2021 Patient was seen and examined at bedside in ICU. Resting in bed in no acute distress. Alert and oriented to self, following simple commands. Continued right-sided weakness, left-sided paralysis. Has been maintaining oxygenation with T piece at 50%. Attempting to wean to trach collar. Patient still trying to verbalize that she wants to go home. Chest x-ray shows no changes from previous exam. We'll continue following crisis nurse recommendations. 10/16/2021 Patient was seen and examined at bedside. Patient is lethargic, responds to touch falls because sleep. Did not follow commands. Continues to have right- sided weakness left-sided paralysis. Continues to require T piece of 50%. Lab results reviewed, hemoglobin stable at 9.6, slight increase of BUN and creatin ine at 32 and 0.44. Potassium and magnesium stable at 4.8 and 2.0. We'll continue to monitor kidney function for any changes. Hospitalist coverage 10/17/21-10/19/21 10/20/2021 Patient was seen and examined at bedside. Patient is out of ICU on medical floor. Patient was agitated and upset, stating she wants to go home, that she has been here for over 3 days and needs to go home. She was told that she has been in the hospital for 40 days and she states it has only been three. Patient is agitated, stating she does not have insurance. Patient continues to have right-sided weakness and left-sided paralysis. Patient has been weaned down to trach collar 40% FiO2. Continues to require tube feeding. Plan was to discharge to subacute rehab, psych consult was ordered to evaluate patient's ability to make choices for herself because she wants to go home. 10/21/21 Patient was seen and evaluated at bedside. Patient was sitting up in the chair, continues to be agitated, stating she wants to go home. Patient is alert and oriented, psychiatry determine she is cognitively stable to make her own medical decisions. Social work is working on securing a subacute rehab that will accept her with her trach. pulmonary cleared her for [facility], awaiting site approval. 10/22/21 Patient seen and examined at bedside. Patient sitting up in bed, oriented and alert, in no acute distress. She states she is disabled and cannot afford to stay here, and becomes frustrated. Case was discussed with social work supervisor and casework supervisor, awaiting for accepting facility. Patient continues to require T piece at 40% FiO2. Hemoglobin stable at 8.8. Kidney function at baseline BUN 34.5 creatinine 0.5. Objective - Vital Signs Vital signs: Vital Signs Temp 98.3 F 10/22/21 07:24 Pulse 87 10/22/21 11:01 Resp 19 10/22/21 10:22 BP 112/76 10/22/21 07:24 Pulse Ox 99 10/22/21 07:26 Intake & Output 10/21/21 10/22/21 10/22/21 18:59 06:59 18:59 Intake Total 960 1200 Output Total 462 1 1 Balance 498 1199 -1 Intake: IV 240 Sodium Chloride 0.9% 1, 240 000 ml @ 20 mls/hr IV . Q24H [facility] Rx#:[id number] Oral 0 Tube Feeding 720 1200 Output: Urine 300 Post Void Residual 160 Stool 2 1 1 Other: Voiding Method Diaper Diaper Bedpan Diaper # Voids 3 2 1 # Bowel Movements 3 1 ABP, PAP, CO, CI - Last Documented Arterial Blood Pressure 123/58 - Constitutional General appearance: Present: no acute distress, thin - EENT Eyes: Present: EOMI, PERRLA Ears: bilateral: normal - Neck Details: Tracheostomy in place - Respiratory Respiratory: bilateral: diminished, rhonchi - Cardiovascular Heart rate: 90 Rhythm: regular Heart sounds: normal: S1, S2 - Peripheral pulses radial pulse Peripheral Pulses: bilateral: Normal - Gastrointestinal Gastrointestinal Comment(s): PEG tube in place General gastrointestinal: Present: soft - Integumentary Integumentary: Present: normal turgor - Neurologic Neurologic: Present: focal deficits - Musculoskeletal Musculoskeletal: Present: right sided weakness, left sided weakness - Psychiatric Psychiatric: Present: A&O x's 3, appropriate affect - Allied health notes Allied health notes reviewed: nursing - Labs CBC & Chem 7: 10/22/21 06:37 10/22/21 06:37 Labs: Abnormal Lab Results - Last 24 Hours (Table) 10/21/21 10/21/21 10/21/21 Range/Units 11:45 18:12 23:49 RBC (4.10-5.20) X 10*6/uL Hgb (12.0-15.0) g/dL Hct (37.2-46.3) % MCV (80.0-97.0) fL MCHC (32.0-37.0) g/dL RDW (11.5-14.5) % Eosinophils # (0.04-0.35) X 10*3/uL Carbon Dioxide (20.0-27.5) mmol/L BUN (9.0-27.0) mg/dL Creatinine (0.6-1.5) mg/dL BUN/Creatinine Ratio (12.00-20.00) Ratio POC Glucose (mg/dL) 134 H 108 H 130 H (75-99) mg/dL 10/22/21 10/22/21 Range/Units 06:37 06:37 RBC 2.92 L (4.10-5.20) X 10*6/uL Hgb 8.8 L (12.0-15.0) g/dL Hct 29.6 L (37.2-46.3) % MCV 101.4 H (80.0-97.0) fL MCHC 29.7 L (32.0-37.0) g/dL RDW 15.2 H (11.5-14.5) % Eosinophils # 0.45 H (0.04-0.35) X 10*3/uL Carbon Dioxide 27.6 H (20.0-27.5) mmol/L BUN 34.5 H (9.0-27.0) mg/dL Creatinine 0.5 L (0.6-1.5) mg/dL BUN/Creatinine Ratio 69.00 H (12.00-20.00) Ratio POC Glucose (mg/dL) (75-99) mg/dL Assessment and Plan Assessment: Altered mental status secondary to metabolic encephalopathy, ruled out intercranial lesions Acute hypoxic respiratory failure secondary to COVID-19 pneumonia, still requiring tracheostomy Status post tracheostomy and PEG tube placement Sepsis secondary to UTI and COVID-19 pneumonia, resolved with treatment Breakthrough seizure, history of previous seizures Unstageable sacral pressure ulcer Cardiomyopathy, EF of 30-35% Acute kidney injury, improved with treatment History of coronary artery disease history of pulmonary embolism History 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 left foot drop Status post permanent pacemaker History of glaucoma but surgical intervention Full code Plan: She continues to require tracheostomy, has been weaned to 40% FiO2 with T piece, continue following pulmonary recommendations Psychiatry found patient has the cognitive ability to make own medical decisions Continue tube feedings, following dietitian recommendations Continue current medication regimen Continue monitoring her mental status for any changes Continue Wound care for unstageable sacral pressure wound Discharge to subacute rehab , waiting for accepting facility Further recommendations to come based on patient's clinical course Time with Patient: Greater than 30 <Garth Auguste - Last Filed: 10/22/21 19:25> Subjective I have personally seen and examined the patient, reviewed the documentation and agree with the assessment and plan as written. Number of minutes spent on the visit: [16]. Objective - Vital Signs Vital signs: Vital Signs Temp 98.0 F 10/22/21 12:17 Pulse 94 10/22/21 12:17 Resp 18 10/22/21 12:17 BP 114/64 10/22/21 12:17 Pulse Ox 93 L 10/22/21 12:17 Intake & Output 10/22/21 10/22/21 10/23/21 06:59 18:59 06:59 Intake Total 1200 960 Output Total 1 1 Balance 1199 959 Weight 55 kg Intake: Oral 0 Tube Feeding 1200 960 Output: Stool 1 1 Other: Voiding Method Diaper Bedpan Diaper # Voids 2 1 # Bowel Movements 1 ABP, PAP, CO, CI - Last Documented Arterial Blood Pressure 123/58 - Labs CBC & Chem 7: 10/22/21 06:37 10/22/21 06:37 Labs: Abnormal Lab Results - Last 24 Hours (Table) 10/21/21 10/22/21 10/22/21 Range/Units 23:49 06:37 06:37 RBC 2.92 L (4.10-5.20) X 10*6/uL Hgb 8.8 L (12.0-15.0) g/dL Hct 29.6 L (37.2-46.3) % MCV 101.4 H (80.0-97.0) fL MCHC 29.7 L (32.0-37.0) g/dL RDW 15.2 H (11.5-14.5) % Eosinophils # 0.45 H (0.04-0.35) X 10*3/uL Carbon Dioxide 27.6 H (20.0-27.5) mmol/L BUN 34.5 H (9.0-27.0) mg/dL Creatinine 0.5 L (0.6-1.5) mg/dL BUN/Creatinine Ratio 69.00 H (12.00-20.00) Ratio POC Glucose (mg/dL) 130 H (75-99) mg/dL 10/22/21 10/22/21 Range/Units 11:56 18:02 RBC (4.10-5.20) X 10*6/uL Hgb (12.0-15.0) g/dL Hct (37.2-46.3) % MCV (80.0-97.0) fL MCHC (32.0-37.0) g/dL RDW (11.5-14.5) % Eosinophils # (0.04-0.35) X 10*3/uL Carbon Dioxide (20.0-27.5) mmol/L BUN (9.0-27.0) mg/dL Creatinine (0.6-1.5) mg/dL BUN/Creatinine Ratio (12.00-20.00) Ratio POC Glucose (mg/dL) 137 H 108 H (75-99) mg/dL
--- NOTE | 2021-10-22 11:38 | P.PN ---
Subjective Progress Note Date: 10/22/21 Principal diagnosis: The patient is seen today 10/20/2021 in follow-up in the regular medical floor. She is currently sitting up in bed. Awake and alert in no acute distress. She is a bit agitated this morning. She is hoping to go home. Will most likely need subacute rehabilitation for safety issues. She is remaining on a trach collar 40% FiO2. Blood glucose 152. Blood cultures reveal no growth. She remains on the anticoagulated with Eliquis. Remains on oral amiodarone. Dilaudid and Ativan as needed. Continued on Seroquel. The patient is seen today 10/20/2021 in follow-up in the regular medical floor. She is currently sitting up in bed. Awake and alert in no acute distress. She is a bit agitated this morning. She is hoping to go home. Will most likely need subacute rehabilitation for safety issues. She is remaining on a trach collar 40% FiO2. Blood glucose 152. Blood cultures reveal no growth. She remains on the anticoagulated with Eliquis. Remains on oral amiodarone. Dilaudid and Ativan as needed. Continued on Seroquel. The patient is seen today 10/21/2021 in follow-up on the regular medical floor. She remains awake and alert in no acute distress. She was seen and evaluated by psychiatric services yesterday and is deemed to be able to make her own medical decisions. She is agreeable to subacute rehabilitation. Tracheostomy tube remains in place. She has a T piece on 40% FiO2. Follow-up sputum culture revealed no growth. Blood cultures revealed no growth. Blood glucose 114. She is continued on Seroquel at 100 mg twice a day. Anticoagulated with Eliquis. Continued on Keppra and Tegretol. No evidence of seizure activity. The patient is seen today 10/22/2021 in follow-up on the regular medical floor. She is sitting up in bed. Awake and alert in no acute distress. She is still on 40% T piece to maintain O2 saturations in the 90s. She is still requiring frequent suctioning with excess secretions. Follow-up sputum culture revealed no growth. White count 6.7. Hemoglobin 8.8. Sodium 142. Potassium 3.9. BUN 35. Creatinine 0.5. Glucose 103. She remains on anticoagulation in the form of Eliquis. Objective - Vital Signs Vital signs: Vital Signs Temp 98.3 F 10/22/21 07:24 Pulse 87 10/22/21 11:01 Resp 19 10/22/21 10:22 BP 112/76 10/22/21 07:24 Pulse Ox 99 10/22/21 07:26 Intake & Output 10/21/21 10/22/21 10/22/21 18:59 06:59 18:59 Intake Total 960 1200 Output Total 462 1 1 Balance 498 1199 -1 Intake: IV 240 Sodium Chloride 0.9% 1, 240 000 ml @ 20 mls/hr IV . Q24H ADDIE Rx#:[id number] Oral 0 Tube Feeding 720 1200 Output: Urine 300 Post Void Residual 160 Stool 2 1 1 Other: Voiding Method Diaper Diaper Bedpan Diaper # Voids 3 2 1 # Bowel Movements 3 1 ABP, PAP, CO, CI - Last Documented Arterial Blood Pressure 123/58 - Exam GENERAL EXAM: Alert, 51-year-old female patient, T piece in place at 40% FiO2, comfortable in no apparent distress. HEAD: Normocephalic. EYES: Normal reaction of pupils, equal size. NOSE: Clear with pink turbinates. THROAT: Endotracheal tube secured in place. No erythema or exudates. Very poor dentition NECK: No masses, no JVD. CHEST: No chest wall deformity. LUNGS: Equal air entry with scattered rhonchi. CVS: S1 and S2 normal with no audible murmur, regular rhythm. ABDOMEN: PEG tube exit site clean and dry. No hepatosplenomegaly, normal bowel sounds, no guarding or rigidity. SPINE: No scoliosis or deformity SKIN: Breakdown on the coccyx unstageable. CENTRAL NERVOUS SYSTEM: No focal deficits, previous CVA with left-sided weakness. EXTREMITIES: Left upper extremity remains weak from previous CVA There is no peripheral edema. Peripheral pulses are intact. - Labs CBC & Chem 7: 10/22/21 06:37 10/22/21 06:37 Labs: Abnormal Lab Results - Last 24 Hours (Table) 10/21/21 10/21/21 10/21/21 Range/Units 11:45 18:12 23:49 RBC (4.10-5.20) X 10*6/uL Hgb (12.0-15.0) g/dL Hct (37.2-46.3) % MCV (80.0-97.0) fL MCHC (32.0-37.0) g/dL RDW (11.5-14.5) % Eosinophils # (0.04-0.35) X 10*3/uL Carbon Dioxide (20.0-27.5) mmol/L BUN (9.0-27.0) mg/dL Creatinine (0.6-1.5) mg/dL BUN/Creatinine Ratio (12.00-20.00) Ratio POC Glucose (mg/dL) 134 H 108 H 130 H (75-99) mg/dL 10/22/21 10/22/21 Range/Units 06:37 06:37 RBC 2.92 L (4.10-5.20) X 10*6/uL Hgb 8.8 L (12.0-15.0) g/dL Hct 29.6 L (37.2-46.3) % MCV 101.4 H (80.0-97.0) fL MCHC 29.7 L (32.0-37.0) g/dL RDW 15.2 H (11.5-14.5) % Eosinophils # 0.45 H (0.04-0.35) X 10*3/uL Carbon Dioxide 27.6 H (20.0-27.5) mmol/L BUN 34.5 H (9.0-27.0) mg/dL Creatinine 0.5 L (0.6-1.5) mg/dL BUN/Creatinine Ratio 69.00 H (12.00-20.00) Ratio POC Glucose (mg/dL) (75-99) mg/dL Assessment and Plan Assessment: 1 Acute hypoxic respiratory failure secondary to COVID-19 pneumonia, intubated on 09/11/2021, status post tracheostomy and PEG tube placement on 09/23, presently on T peice , at 40% 2 Altered mental status, acute toxic metabolic encephalopathy. No acute CVA noted on brain CT. Significantly improved. 3 Acute COVID-19 pneumonia, resolved. 4 History of seizure activity. Under control. 5 Previous history of pulmonary embolism, on long-term treatment with Eliquis. 6 Paroxysmal atrial fibrillation 7 Cardiomyopathy and LV dysfunction with ejection fraction of 30-35%. 8 History of pacemaker implantation. 9 History of saccular MANAGER BANQUET aneurysm 4 mm 10 Hypothyroidism 11 Coronary artery disease 12 History of CVA in 2008 13 History of psoriasis 14 Sacral /coccygeal decubitus ulcer, unstageable. Plan: The patient was seen and evaluated Continues on 40% FiO2 via T piece Awaiting transfer to subacute rehabilitation Anticoagulation with Eliquis Continue nutritional support with vital AF via PEG tube Discharge planning is in place We will see as needed I, the cosigning physician, performed a history & physical examination of the patient. Lungs sounds with scattered rhonchi. Maintaining good O2 saturations in the 90s on 40% FiO2 via T piece. I discussed the assessment and plan of care with my nurse practitioner, Gissell Hernandez. I attest to the above note as dictated by her. I have personally seen and examined the patient, performed the documentation and the assessment and plan as written. Number of minutes spent on the visit: 10.
[2021-10-22 11:58] LABS: Glucose,Whole Blood 137 mg/dL (75-99)
[2021-10-22] MEDS: SODIUM CHLORIDE 0.9% 1,000 ML IV SCH (15:28)
[2021-10-22] MEDS: ALPRAZolam 0.5 MG TAB PO PRN ×2 (15:48→20:11)
[2021-10-22 18:04] LABS: Glucose,Whole Blood 108 mg/dL (75-99)
[2021-10-22] MEDS: QUEtiapine 50 MG TAB PO SCH (20:11)
[2021-10-23] MEDS: HYDROcodone/APAP 15 ML SOLUTION PO PRN ×2 (00:29→12:18)
[2021-10-23] MEDS: METOPROLOL TARTRATE 25 MG TAB PO SCH ×2 (08:34→21:20)
[2021-10-23] MEDS: APIXABAN 5 MG TAB PO SCH ×2 (08:35→21:21)
[2021-10-23] MEDS: AMIODARONE 200 MG TAB PO SCH (08:35)
[2021-10-23] MEDS: CHOLECALCIFEROL 125 MCG (5000 IU) TABLET PO SCH (08:36)
[2021-10-23] MEDS: QUEtiapine 50 MG TAB PO SCH ×2 (08:36→21:21)
[2021-10-23] MEDS: PANTOPRAZOLE 40 MG/10 ML VIAL IV SCH (08:36)
[2021-10-23] MEDS: carBAMazepine 200 MG TAB PO SCH ×3 (08:36→21:21)
[2021-10-23 11:56] LABS: Glucose,Whole Blood 127 mg/dL (75-99)
--- NOTE | 2021-10-23 12:00 | P.PN ---
Subjective Progress Note Date: 10/23/21 Principal diagnosis: Altered mental status Patient is a 51-year-old female presented to the emergency room with altered mental status, COVID-19 pneumonia, UTI, seizures and possible stroke. UTI and pneumonia have been treated, and sepsis resolved. 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 Patient has been in the hospital since September 10, 2021 and has had extensive evaluations and treatment. Patient has been followed by multiple consultants including intensive care/pulmonary, neurology, and surgical services. Hospitalists have been providing coverage from 09/10/2021 through 10/05/2021. Patient continues to require mechanical ventilation. Patient is status post PEG tube placement and tracheotomy placement. 10/06/21 Patient was seen and examined at bedside in the ICU. Continues to require mechanical ventilation via tracheostomy. FiO2 40%, PEEP 5, oxygen saturation 96%, blood pressure 149/82. She is alert, responds to name, and follows simple commands. Denies any acute symptoms, unable to speak, replies by shaking her head yes or no. Left-sided paralysis, right-sided weakness able to grasp fingers and wiggle toes on the right. White blood cell count 5.6, kidney function improved the BUN 15, creatinine 0.3, liver enzymes continue to be elevated but improving. Plan was to discharge patient to select specialty, insurance denied, awaiting clearance from social work. 10/07/21 Patient was seen and examined at bedside in ICU. Patient is resting comfortably, in no acute distress. Continues to require mechanical ventilation via tracheostomy. FiO2 40%, PEEP 5, oxygen saturation 95%, blood pressure 119/74. Patient is alert and oriented to self, able to follow simple commands. Continued left-sided paralysis, right-sided weakness. Potassium 3.3, was treated according to protocol. Kidney function remains stable, white count 7.1 today. Still waiting for insurance appeal for transfer to long-term acute care. 10/08/21 patient was seen and examined in ICU. Was up in the chair via rebecca lift, in mild distress. Oxygen saturation was declining to 70% while on trach collar. Patient was trying to say that she can't breathe and she needs help. Nurse and respiratory therapist assisted patient back on mechanical ventilation at prev ious settings, with improvement of oxygen saturation. Patient was alert and oriented to self.continued right-sided weakness and left-sided paralysis.potassium improved to 3.5.still awaiting insurance appeal for transfer to long-term acute care 10/09/2021 Patient was seen and examined at bedside in ICU. Resting comfortably in bed, in no acute distress. Alert and oriented to self. She was trying to say that she wants to go home. Continued right-sided weakness and left-sided paralysis. Continues to require mechanical ventilation via tracheostomy. FiO2 40% PEEP of 5. ABG was stable. Tolerating tube feeding via PEG tube. Awaiting insurance appeal for transfer to long-term acute care. Hospitalist coverage 10/10/21-10/12/21 10/13/2021 Patient seen and examined at bedside in ICU. Patient lethargic, not answering questions, arises to touch but then falls back asleep. Spoke with nurse re garding patient's status over the weekend, restaurant maintenance technician to try to decannulate the patient, became hypoxic and needed trach replaced. Today patient is on CPAP via tracheostomy, rate of 28, tidal volume 400, FiO2 40%, and PEEP of 8. We'll continue following pulmonary's recommendations. Blood Pressure was decreased on exam, already being treated with fluid bolus. Will follow restaurant maintenance technician recommendations for pressure control. Still waiting for insurance clearance for long-term acute care transfer. 10/14/21 Patient was seen and examined at bedside in ICU. Was resting in bed, no acute distress. Awoke to name and touch, oriented to self, followed simple commands. She was trying to verbalize that she wants to home. Continued right-sided weakness, left-sided paralysis. She was weaned to a t-piece at 50%, saturating well. Has been off the ventilator more than 24 hours. We will continue to follow pulmonary recommendations. 10/15/2021 Patient was seen and examined at bedside in ICU. Resting in bed in no acute distress. Alert and oriented to self, following simple commands. Continued right-sided weakness, left-sided paralysis. Has been maintaining oxygenation with T piece at 50%. Attempting to wean to trach collar. Patient still trying to verbalize that she wants to go home. Chest x-ray shows no changes from previous exam. We'll continue following restaurant maintenance technician recommendations. 10/16/2021 Patient was seen and examined at bedside. Patient is lethargic, responds to touch falls because sleep. Did not follow commands. Continues to have right- sided weakness left-sided paralysis. Continues to require T piece of 50%. Lab results reviewed, hemoglobin stable at 9.6, slight increase of BUN and creatinine at 32 and 0.44. Potassium and magnesium stable at 4.8 and 2.0. We 'll continue to monitor kidney function for any changes. Hospitalist coverage 10/17/21-10/19/21 10/20/2021 Patient was seen and examined at bedside. Patient is out of ICU on medical floor. Patient was agitated and upset, stating she wants to go home, that she has been here for over 3 days and needs to go home. She was told that she has been in the hospital for 40 days and she states it has only been three. Patient is agitated, stating she does not have insurance. Patient continues to have right-sided weakness and left-sided paralysis. Patient has been weaned down to trach collar 40% FiO2. Continues to require tube feeding. Plan was to discharge to subacute rehab, psych consult was ordered to evaluate patient's ability to make choices for herself because she wants to go home. 10/21/21 Patient was seen and evaluated at bedside. Patient was sitting up in the chair, continues to be agitated, stating she wants to go home. Patient is alert and oriented, psychiatry determine she is cognitively stable to make her own medical decisions. Social work is working on securing a subacute rehab that will accept her with her trach. pulmonary cleared her for discharge, awaiting site approval. 10/22/21 Patient seen and examined at bedside. Patient sitting up in bed, oriented and alert, in no acute distress. She states she is disabled and cannot afford to stay here, and becomes frustrated. Case was discussed with director social and patient case manager, awaiting for accepting facility. Patient continues to require T piece at 40% FiO2. Hemoglobin stable at 8.8. Kidney function at baseline BUN 34.5 creatinine 0.5. 10/23/21 Patient was seen and examined at bedside, she was sitting up in bed reading a magazine. Patient is frustrated with the length of time she has been in the hospital and wants to go to rehab so she can get back home. Multiple facilities have denied her case, still awaiting accepting facility. Continues to require Tpiece at 40% FiO2. Mentation has improved greatly, able to hold a conversation and longterm memory is intact. She is medically ready for discharge as soon as a facility is located that will accept her. Objective - Vital Signs Vital signs: Vital Signs Temp 98.4 F 10/23/21 07:47 Pulse 67 10/23/21 09:09 Resp 15 10/23/21 07:47 BP 119/68 10/23/21 07:47 Pulse Ox 98 10/23/21 07:47 Intake & Output 10/22/21 10/23/21 10/23/21 18:59 06:59 18:59 Intake Total 960 1080 360 Output Total 1 500 Balance 959 580 360 Weight 55 kg Intake: Oral 0 Tube Feeding 960 1080 360 Output: Urine 500 Stool 1 Other: Voiding Method Bedpan Bedpan Bedside Commode Diaper Diaper Bedpan Diaper # Voids 1 2 # Bowel Movements 1 ABP, PAP, CO, CI - Last Documented Arterial Blood Pressure 123/58 - Constitutional General appearance: Present: no acute distress, thin - EENT Eyes: Present: EOMI, PERRLA ENT: Present: normal oropharynx Ears: bilateral: normal - Neck Details: trach in place - Respiratory Respiratory: bilateral: diminished - Cardiovascular Heart rate: 70 Rhythm: regular Heart sounds: normal: S1, S2 - Gastrointestinal Gastrointestinal Comment(s): PEG tube General gastrointestinal: Present: normal bowel sounds - Integumentary Integumentary: Present: normal - Neurologic Neurologic: Present: focal deficits - Musculoskeletal Musculoskeletal: Present: right sided weakness, left sided weakness - Psychiatric Psychiatric: Present: A&O x's 3, appropriate affect, intact judgment & insight - Allied health notes Allied health notes reviewed: social work - Labs CBC & Chem 7: 10/22/21 06:37 10/22/21 06:37 Labs: Abnormal Lab Results - Last 24 Hours (Table) 10/22/21 10/22/21 Range/Units 11:56 18:02 POC Glucose (mg/dL) 137 H 108 H (75-99) mg/dL Assessment and Plan Assessment: Altered mental status secondary to metabolic encephalopathy, ruled out intercranial lesions, improved Acute hypoxic respiratory failure secondary to COVID-19 pneumonia, still requiring tracheostomy Status post tracheostomy and PEG tube placement Sepsis secondary to UTI and COVID-19 pneumonia, resolved with treatment Breakthrough seizure, history of previous seizures Unstageable sacral pressure ulcer Cardiomyopathy, EF of 30-35% Acute kidney injury, improved with treatment History of coronary artery disease history of pulmonary embolism History 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 left foot drop Status post permanent pacemaker History of glaucoma but surgical intervention Full code Plan: She continues to require tracheostomy, has been weaned to 40% FiO2 with T piece, continue following pulmonary recommendations Psychiatry found patient has the cognitive ability to make own medical decisions Continue tube feedings, following dietitian recommendations Continue current medication regimen Continue monitoring her mental status for any changes Continue Wound care for unstageable sacral pressure wound Discharge to subacute rehab , waiting for accepting facility Further recommendations to come based on patient's clinical course Time with Patient: Greater than 30
[2021-10-23] MEDS: ALPRAZolam 0.5 MG TAB PO PRN ×2 (12:18→22:29)
--- NOTE | 2021-10-23 13:20 | P.PN ---
Subjective Progress Note Date: 10/23/21 CHIEF COMPLAINT: COVID-19 pneumonia HISTORY OF PRESENT ILLNESS: Patient is on regular medical floor. She had an issue with T piece. Respiratory therapist was notified and will fix it. She is sating fine. no distress. She is tolerating peg tube feedings. She is awaiting placement. Her insurance has denied several facilities. Afebrile PHYSICAL EXAM: VITAL SIGNS: Reviewed. GENERAL:no acute distress. HEENT: Moist buccal mucosa. Head is atraumatic, normocephalic. Tracheostomy site clean and dry ABDOMEN: Soft. Nondistended. PEG tube site clean dry and intact. Bolster at 3cm NEUROLOGIC: awake ASSESSMENT: 1. Acute hypoxic respiratory failure secondary to COVID-19 pneumonia requiring mechanical ventilation 2. Severe protein calorie malnutrition PLAN: -Continue tube feedings -Continue supportive care Physician Extension Course Coordinator note has been reviewed by physician. Signing provider agrees with the documented findings, assessment, and plan of care. Objective - Vital Signs Vital signs: Vital Signs Temp 98.2 F 10/23/21 12:12 Pulse 85 10/23/21 12:12 Resp 19 10/23/21 12:12 BP 136/72 10/23/21 12:12 Pulse Ox 97 10/23/21 12:12 Intake & Output 10/22/21 10/23/21 10/23/21 18:59 06:59 18:59 Intake Total 960 1080 360 Output Total 1 500 Balance 959 580 360 Weight 55 kg Intake: Oral 0 Tube Feeding 960 1080 360 Output: Urine 500 Stool 1 Other: Voiding Method Bedpan Bedpan Bedside Commode Diaper Diaper Bedpan Diaper # Voids 1 2 # Bowel Movements 1 ABP, PAP, CO, CI - Last Documented Arterial Blood Pressure 123/58 - Labs CBC & Chem 7: 10/22/21 06:37 10/22/21 06:37 Labs: Abnormal Lab Results - Last 24 Hours (Table) 10/22/21 10/23/21 Range/Units 18:02 11:52 POC Glucose (mg/dL) 108 H 127 H (75-99) mg/dL
--- NOTE | 2021-10-23 13:52 | P.PN ---
<Gissell Hernandez - Last Filed: 10/23/21 13:50> Subjective Progress Note Date: 10/23/21 Principal diagnosis: The patient is seen today 10/20/2021 in follow-up in the regular medical floor. She is currently sitting up in bed. Awake and alert in no acute distress. She is a bit agitated this morning. She is hoping to go home. Will most likely need subacute rehabilitation for safety issues. She is remaining on a trach collar 40% FiO2. Blood glucose 152. Blood cultures reveal no growth. She remains on the anticoagulated with Eliquis. Remains on oral amiodarone. Dilaudid and Ativan as needed. Continued on Seroquel. The patient is seen today 10/20/2021 in follow-up in the regular medical floor. She is currently sitting up in bed. Awake and alert in no acute distress. She is a bit agitated this morning. She is hoping to go home. Will most likely need subacute rehabilitation for safety issues. She is remaining on a trach collar 40% FiO2. Blood glucose 152. Blood cultures reveal no growth. She remains on the anticoagulated with Eliquis. Remains on oral amiodarone. Dilau did and Ativan as needed. Continued on Seroquel. The patient is seen today 10/21/2021 in follow-up on the regular medical floor. She remains awake and alert in no acute distress. She was seen and evaluated by psychiatric services yesterday and is deemed to be able to make her own medical decisions. She is agreeable to subacute rehabilitation. Tracheostomy tube remains in place. She has a T piece on 40% FiO2. Follow-up sputum culture revealed no growth. Blood cultures revealed no growth. Blood glucose 114. She is continued on Seroquel at 100 mg twice a day. Anticoagulated with Eliquis. Continued on Keppra and Tegretol. No evidence of seizure activity. The patient is seen today 10/22/2021 in follow-up on the regular medical floor. She is sitting up in bed. Awake and alert in no acute distress. She is still on 40% T piece to maintain O2 saturations in the 90s. She is still requiring frequent suctioning with excess secretions. Follow-up sputum culture revealed no growth. White count 6.7. Hemoglobin 8.8. Sodium 142. Potassium 3.9. BUN 35. Creatinine 0.5. Glucose 103. She remains on anticoagulation in the form of Eliquis. The patient is seen today 10/23/2021 in follow-up on the regular medical floor. She is resting comfortably in bed. Awake and alert in no acute distress. He remains quite agitated and vulgar. She is maintaining good O2 to saturations in the mid to upper 90s on 40% FiO2 via the T piece. Follow-up sputum culture revealed no growth. Blood culture reveals no growth. Blood glucose 127. She remains afebrile. Hemodynamically stable. Objective - Vital Signs Vital signs: Vital Signs Temp 98.2 F 10/23/21 12:12 Pulse 85 10/23/21 12:12 Resp 19 10/23/21 12:12 BP 136/72 10/23/21 12:12 Pulse Ox 97 10/23/21 12:12 Intake & Output 10/22/21 10/23/21 10/23/21 18:59 06:59 18:59 Intake Total 960 1080 360 Output Total 1 500 Balance 959 580 360 Weight 55 kg Intake: Oral 0 Tube Feeding 960 1080 360 Output: Urine 500 Stool 1 Other: Voiding Method Bedpan Bedpan Bedside Commode Diaper Diaper Bedpan Diaper # Voids 1 2 # Bowel Movements 1 ABP, PAP, CO, CI - Last Documented Arterial Blood Pressure 123/58 - Exam GENERAL EXAM: Alert, 51-year-old female patient, T piece in place at 40% FiO2, comfortable in no apparent distress. HEAD: Normocephalic. EYES: Normal reaction of pupils, equal size. NOSE: Clear with pink turbinates. THROAT: Endotracheal tube secured in place. No erythema or exudates. Very poor dentition NECK: No masses, no JVD. CHEST: No chest wall deformity. LUNGS: Equal air entry with scattered rhonchi. CVS: S1 and S2 normal with no audible murmur, regular rhythm. ABDOMEN: PEG tube exit site clean and dry. No hepatosplenomegaly, normal bowel sounds, no guarding or rigidity. SPINE: No scoliosis or deformity SKIN: Breakdown on the coccyx unstageable. CENTRAL NERVOUS SYSTEM: No focal deficits, previous CVA with left-sided weakness. EXTREMITIES: Left upper extremity remains weak from previous CVA There is no peripheral edema. Peripheral pulses are intact. - Labs CBC & Chem 7: 10/22/21 06:37 10/22/21 06:37 Labs: Abnormal Lab Results - Last 24 Hours (Table) 10/22/21 10/23/21 Range/Units 18:02 11:52 POC Glucose (mg/dL) 108 H 127 H (75-99) mg/dL Assessment and Plan Assessment: 1 Acute hypoxic respiratory failure secondary to COVID-19 pneumonia, intubated on 09/11/2021, status post tracheostomy and PEG tube placement on 09/23, presently on T peice at 40% 2 Altered mental status, acute toxic metabolic encephalopathy. No acute CVA noted on brain CT. Significantly improved. 3 Acute COVID-19 pneumonia, resolved. 4 History of seizure activity. Under control. 5 Previous history of pulmonary embolism, on long-term treatment with Eliquis. 6 Paroxysmal atrial fibrillation 7 Cardiomyopathy and LV dysfunction with ejection fraction of 30-35%. 8 History of pacemaker implantation. 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 Plan: The patient was seen and evaluated Continues on 40% FiO2 via T piece Awaiting transfer to subacute rehabilitation Anticoagulation with Eliquis Continue nutritional support with vital AF via PEG tube We will continue to follow I, the cosigning physician, performed a history & physical examination of the patient. Lungs sounds with scattered rhonchi. Maintaining good O2 saturations in the 90s on 40% FiO2 via T piece. I discussed the assessment and plan of care with my nurse practitioner, Gissell Hernandez. I attest to the above note as dictated by her. I have personally seen and examined the patient, performed the documentation and the assessment and plan as written. Number of minutes spent on the visit: 10. <Fernando Oviedo - Last Filed: 10/23/21 19:16> Objective - Vital Signs Vital signs: Vital Signs Temp 98.2 F 10/23/21 12:12 Pulse 85 10/23/21 12:12 Resp 19 10/23/21 12:12 BP 136/72 10/23/21 12:12 Pulse Ox 97 10/23/21 12:12 Intake & Output 10/23/21 10/23/21 10/24/21 06:59 18:59 06:59 Intake Total 1080 360 Output Total 500 Balance 580 360 Weight 53.9 kg Intake: Oral 0 Tube Feeding 1080 360 Output: Urine 500 Other: Voiding Method Bedpan Bedside Commode Diaper Bedpan Diaper # Voids 2 1 ABP, PAP, CO, CI - Last Documented Arterial Blood Pressure 123/58 - Labs CBC & Chem 7: 10/22/21 06:37 10/22/21 06:37 Labs: Abnormal Lab Results - Last 24 Hours (Table) 10/23/21 10/23/21 Range/Units 11:52 17:11 POC Glucose (mg/dL) 127 H 117 H (75-99) mg/dL Assessment and Plan Assessment: This evaluation was done along with a nurse practitioner. This evaluation was done in more than 20 minutes. The patient is post hypoxic respiratory failure secondary to call with activity related pneumonia and the patient has been extubated and the patient currently has a tracheostomy tube in place and the PICC tube in place for enteral feeding insertion support. She is currently on a trach collar. She has increases for secretions. Cultures obtained did not reveal any acute abnormalities or cultures that were positive. The patient remains on a combination of amiodarone and metoprolol regarding the atrial fibrillation. The patient is also on long-term and to coagulation with Eliquis. He is also on Seroquel 50 mg twice a day. Working with physical therapy. Awaiting ECF. Time with Patient: Less than 30
[2021-10-23] MEDS: SODIUM CHLORIDE 0.9% 1,000 ML IV SCH (16:55)
[2021-10-23 17:32] LABS: Glucose,Whole Blood 117 mg/dL (75-99)
[2021-10-24 07:04] LABS: Glucose,Whole Blood 127 mg/dL (75-99)
[2021-10-24] MEDS ORDERED: MAGNESIUM HYDROXIDE 2,400 MG/10 ML CUP PEG/G-TUBE PRN (08:02)
[2021-10-24] MEDS ORDERED: bisacodyL 10 MG SUPP RECTAL PRN (08:03)
[2021-10-24] MEDS: CHOLECALCIFEROL 125 MCG (5000 IU) TABLET PO SCH (10:33)
[2021-10-24] MEDS: AMIODARONE 200 MG TAB PO SCH (10:33)
[2021-10-24] MEDS: PANTOPRAZOLE 40 MG/10 ML VIAL IV SCH (10:33)
[2021-10-24] MEDS: METOPROLOL TARTRATE 25 MG TAB PO SCH ×2 (10:34→19:51)
[2021-10-24] MEDS: QUEtiapine 50 MG TAB PO SCH ×2 (10:34→19:51)
[2021-10-24] MEDS: carBAMazepine 200 MG TAB PO SCH ×3 (10:34→19:50)
[2021-10-24] MEDS: APIXABAN 5 MG TAB PO SCH ×2 (10:34→19:51)
[2021-10-24] MEDS: ALPRAZolam 0.5 MG TAB PO PRN ×2 (10:58→19:50)
--- NOTE | 2021-10-24 12:34 | P.PN ---
<Gissell Hernandez - Last Filed: 10/24/21 12:30> Subjective Progress Note Date: 10/24/21 Principal diagnosis: The patient is seen today 10/20/2021 in follow-up in the regular medical floor. She is currently sitting up in bed. Awake and alert in no acute distress. She is a bit agitated this morning. She is hoping to go home. Will most likely need subacute rehabilitation for safety issues. She is remaining on a trach collar 40% FiO2. Blood glucose 152. Blood cultures reveal no growth. She remains on the anticoagulated with Eliquis. Remains on oral amiodarone. Dilaudid and Ativan as needed. Continued on Seroquel. The patient is seen today 10/20/2021 in follow-up in the regular medical floor. She is currently sitting up in bed. Awake and alert in no acute distress. She is a bit agitated this morning. She is hoping to go home. Will most likely need subacute rehabilitation for safety issues. She is remaining on a trach collar 40% FiO2. Blood glucose 152. Blood cultures reveal no growth. She remains on the anticoagulated with Eliquis. Remains on oral amiodarone. Dilau did and Ativan as needed. Continued on Seroquel. The patient is seen today 10/21/2021 in follow-up on the regular medical floor. She remains awake and alert in no acute distress. She was seen and evaluated by psychiatric services yesterday and is deemed to be able to make her own medical decisions. She is agreeable to subacute rehabilitation. Tracheostomy tube remains in place. She has a T piece on 40% FiO2. Follow-up sputum culture revealed no growth. Blood cultures revealed no growth. Blood glucose 114. She is continued on Seroquel at 100 mg twice a day. Anticoagulated with Eliquis. Continued on Keppra and Tegretol. No evidence of seizure activity. The patient is seen today 10/22/2021 in follow-up on the regular medical floor. She is sitting up in bed. Awake and alert in no acute distress. She is still on 40% T piece to maintain O2 saturations in the 90s. She is still requiring frequent suctioning with excess secretions. Follow-up sputum culture revealed no growth. White count 6.7. Hemoglobin 8.8. Sodium 142. Potassium 3.9. BUN 35. Creatinine 0.5. Glucose 103. She remains on anticoagulation in the form of Eliquis. The patient is seen today 10/23/2021 in follow-up on the regular medical floor. She is resting comfortably in bed. Awake and alert in no acute distress. He remains quite agitated and vulgar. She is maintaining good O2 to saturations in the mid to upper 90s on 40% FiO2 via the T piece. Follow-up sputum culture revealed no growth. Blood culture reveals no growth. Blood glucose 127. She remains afebrile. Hemodynamically stable. The patient is seen today 10/18/2021 in follow-up on the regular medical floor. She is sitting up in a chair at the bedside. Awake and alert in no acute distress. Still quite emotional. No worsening shortness of breath. Her secretions. To be decreasing. Tracheostomy tube remains secured in place. T piece in place with 97% O2 saturations currently. She's been afebrile. Hemodynamically stable and blood sugar 127. Continued on Xanax as needed. She remains anticoagulated with Eliquis. Objective - Vital Signs Vital signs: Vital Signs Temp 98.1 F 10/24/21 11:27 Pulse 84 10/24/21 11:27 Resp 20 10/24/21 11:27 BP 109/63 10/24/21 11:27 Pulse Ox 97 10/24/21 11:27 Intake & Output 10/23/21 10/24/21 10/24/21 18:59 06:59 18:59 Intake Total 360 1800 Balance 360 1800 Weight 53.9 kg Intake: Tube Feeding 360 1800 Other: Voiding Method Bedside Commode Toilet Bedpan Bedside Commode Diaper Bedpan Diaper # Voids 1 0 # Bowel Movements 1 ABP, PAP, CO, CI - Last Documented Arterial Blood Pressure 123/58 - Exam GENERAL EXAM: Alert, 51-year-old female patient, up in a chair at the bedside, T piece in place at 40% FiO2, comfortable in no apparent distress. HEAD: Normocephalic. EYES: Normal reaction of pupils, equal size. NOSE: Clear with pink turbinates. THROAT: Endotracheal tube secured in place. No erythema or exudates. Very poor dentition NECK: No masses, no JVD. CHEST: No chest wall deformity. LUNGS: Equal air entry with scattered rhonchi. CVS: S1 and S2 normal with no audible murmur, regular rhythm. ABDOMEN: PEG tube exit site clean and dry. No hepatosplenomegaly, normal bowel sounds, no guarding or rigidity. SPINE: No scoliosis or deformity SKIN: Breakdown on the coccyx unstageable. CENTRAL NERVOUS SYSTEM: No focal deficits, previous CVA with left-sided weakness. EXTREMITIES: Left upper extremity remains weak from previous CVA There is no peripheral edema. Peripheral pulses are intact. - Labs CBC & Chem 7: 10/22/21 06:37 10/22/21 06:37 Labs: Abnormal Lab Results - Last 24 Hours (Table) 10/23/21 10/24/21 Range/Units 17:11 07:01 POC Glucose (mg/dL) 117 H 127 H (75-99) mg/dL Assessment and Plan Assessment: 1 Acute hypoxic respiratory failure secondary to COVID-19 pneumonia, intubated on 09/11/2021, status post tracheostomy and PEG tube placement on 09/23/2021, presently on T peice at 40% 2 Altered mental status, acute toxic metabolic encephalopathy. No acute CVA no sarah on brain CT. Significantly improved. 3 Acute COVID-19 pneumonia, resolved. 4 History of seizure activity. Under control. 5 Previous history of pulmonary embolism, on long-term treatment with Eliquis. 6 Paroxysmal atrial fibrillation, anticoagulated with Eliquis 7 Cardiomyopathy and LV dysfunction with ejection fraction of 30-35%. 8 History of pacemaker implantation. 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 Plan: The patient was seen and evaluated Improved and up in a chair at the bedside Continues on 40% FiO2 via T piece We'll plan for a speaking valve Continue nutritional support with vital AF via PEG tube We will continue to follow I, the cosigning physician, performed a history & physical examination of the patient. Lungs sounds with scattered rhonchi. Maintaining good O2 saturations in the 90s on 40% FiO2 via T piece. I discussed the assessment and plan of care with my nurse practitioner, Gissell Hernandez. I attest to the above note as dictated by her. I have personally seen and examined the patient, performed the documentation and the assessment and plan as written. Number of minutes spent on the visit: 10. <Fernando Oviedo - Last Filed: 10/24/21 13:47> Objective - Vital Signs Vital signs: Vital Signs Temp 98.1 F 10/24/21 11:27 Pulse 84 10/24/21 11:27 Resp 20 10/24/21 11:27 BP 109/63 10/24/21 11:27 Pulse Ox 97 10/24/21 11:27 Intake & Output 10/23/21 10/24/21 10/24/21 18:59 06:59 18:59 Intake Total 360 1800 Balance 360 1800 Weight 53.9 kg Intake: Tube Feeding 360 1800 Other: Voiding Method Bedside Commode Toilet Bedpan Bedside Commode Diaper Bedpan Diaper # Voids 1 0 # Bowel Movements 1 ABP, PAP, CO, CI - Last Documented Arterial Blood Pressure 123/58 - Labs CBC & Chem 7: 10/22/21 06:37 10/22/21 06:37 Labs: Abnormal Lab Results - Last 24 Hours (Table) 10/23/21 10/24/21 10/24/21 Range/Units 17:11 07:01 12:46 POC Glucose (mg/dL) 117 H 127 H 129 H (75-99) mg/dL Assessment and Plan Assessment: I have personally seen and examined the patient and reviewed the documentation. I performed a joint evaluation with the nurse practitioner in this evaluation was done more than 20 minutes. I fully agree with the documentation above and the plan of care.
[2021-10-24 12:50] LABS: Glucose,Whole Blood 129 mg/dL (75-99)
[2021-10-24 14:00] LABS: ALT 34 U/L (8-44); AST 27 U/L (13-35); Albumin 3.5 g/dL (3.8-4.9); Albumin/Globulin Ratio 1.12 (1.60-3.17); Alkaline Phosphatase 68 U/L (41-126); BUN/Creat Ratio 80.84 Ratio (12.00-20.00); Blood Urea Nitrogen 30.8 mg/dL (9.0-27.0); Calcium 9.4 mg/dL (8.7-10.3); Carbon Dioxide 25.3 mmol/L (20.0-27.5); Chloride 103 mmol/L (96-109); Globulin 3.1 g/dL (1.6-3.3); Glucose 121 mg/dL (70-110); Non-African American GFR(CKD) 123.4 (60.0-200.0); Potassium 4.1 mmol/L (3.5-5.5); Sodium 142 mmol/L (135-145); Total Bilirubin <0.15 mg/dL (0.30-1.20); Total Protein 6.6 g/dL (6.2-8.2)
[2021-10-24] MEDS: SODIUM CHLORIDE 0.9% 1,000 ML IV SCH (15:34)
[2021-10-24 17:21] LABS: Glucose,Whole Blood 110 mg/dL (75-99)
--- NOTE | 2021-10-24 20:21 | P.PN ---
Subjective Progress Note Date: 10/24/21 This is a pleasant 51 years old female with past medical history of Coronary Artery Disease, Heart Failure, CVA/TIA, Pulmonary Embolus (PE), Seizure Disorder, Last seizure 2009, CVA 2007 with L sided weakness arm and leg and has L foot drop, TIA 2018, cardiomyopathy, R PE and pneumothorax/pneumonia following leg fracture in 1994, gestational diabetes with all pregnancies , bilateral glaucoma with surgery, psoriasis in the past, UTIs. She is a status post Pacemaker, history of Bilateral eye surgery for glaucoma, Anxiety, Depression, Current every day smoker Patient presents because of altered mental status. Information was limited from the patient. It was obtained from the chart and medical staff. Also as per family patient was able to go to the bathroom, was more lethargic and tired over the last day. While in the emergency room focal mild seizure is noticed On admission patient had and fever of 101. She is tachypneic at 26-40, tachycardic 110-140, also she is hypoxic saturating 72% on room air Labs showing WBC of 10.5, hemoglobin of 16.3, platelet count of 197. INR 1.7. Sodium 164, creatinine 1.7, lactic acid elevated 4.6. Liver enzymes elevated with AST 202 and ALT 81. Bilirubin is normal at 1.3. Urine analysis is highly suspicious of infection Urine drug screen is negative Cash versus positive Chest x-ray showing left perihilar and left lower lobe area of infiltrate and small effusion correlates for pneumonia CT of the brain without contrast showing no intracranial hemorrhage, evidence of remote ischemic change. However there is vague low attenuation near the left thalamus and left cerebral peduncle. Acute ischemia in the differential diagnosis. Recommend stat MRI of brain with MRSA diomede of [place] as clinically warranted. In the emergency room patient was started on aztreonam and IV vancomycin, Keppra and heparin drip 09/11/2021 Patient today was still in the ICU, she was very weak and obtunded, she will wake up to certain stabilized and moans, she does not follow commands she cannot, gait she moved both extremities symmetrically. R on she had collapse of her left lung cancer and she has to be intubated and repeat chest x-ray showing better. A of the left lung. She is tachypneic with a breathing rate 22, no more fever since yesterday. Her sodium improved down to 144 and she was started on normal saline, creatinine 1.1, Ejection fraction showed 30-35% which is slice worsened from 06/2021 where it was 35-40% She remains on dexamethasone, IV vancomycin and clindamycin, heparin drip, Keppra and normal saline at 75 mL/h 09/12/2021 Patient with respiratory failures and she was intubated and placed on mechanical ventilation with pulmonary/critical care team following her mostly. There is no more seizure-like activity noticed. She still tachypneic with a breathing rate of 32 blood pressure 100/70, she is needing FiO2 of 80% and PEEP of 20. She has no more fevers since admission. Urine culture is growing gram-negative bacilli. Sodium is 146, WBCs is increased at 16.5 K. PH showing acidosis with 7.1 and elevated pCO2 at 83. Chest x-ray showing left sided opacities with near full. A of the left lung. Patient kept on antibiotics in the form of clindamycin and Levaquin and fluconazole. Also she remains on dexamethasone, and so a heparin to Lovenox. Also continued on seizure medication 1500 mg twice a day and IV fluids per pulmonary team. Neurology team on the case 09/13/2021 Patient remains intubated and sedated with pulmonary/critical care team following her closely. Her PEEP is lower today to 18. She remains on FiO2 of 50%. She is tachypneic at 32 about blood pressure is controlled. Her inflammatory markers are increased to LDH of 1009 and CRP of 25.1. Bicarb is elevated at 31 WBC is 17.7, sodium improved to 142. Creatinine improved to 0.6. Chest x-ray showed improving left lung infiltrate. PH is improved slightly 7.2 with pCO2 is slightly better at 79. Urine culture is growing E. coli which is sensitive to the antibiotics. Currently patient is covered with clindamycin, Levaquin and fluconazole. Also she is on dexamethasone 6 mg, Keppra 1500 mg and half-normal saline at 50 mL per hour Anticoagulation switch from heparin drip and to Lovenox 09/14/2021 Patient still intubated and sedated on mechanical ventilation with pulmonary/critical care team following her closely and just her vent setting. Today her FiO2 of 55%, and she is tachypneic at 33 breath per minute. Labs showing stable findings with sodium 141, creatinine 0.8, liver enzymes slightly elevated, LDH slightly down at 797 and CRP 2-3.2. Same leukocytosis at 14.7. Her pH is 7.2 and carbon dioxide is 82. D-dimer mildly elevated at 0.9, just x-ray showing bilateral infiltrate with no significant change from prior. She remains on the same antibiotic of clindamycin, Levaquin, dexamethasone, Keppra 1500 mg and half normal saline at 50 mL/h 09/15/2021 Patient in the ICU intubated and sedated, with pulmonary/critical care team following closely. FiO2 still 50%, hemodynamically showing both staple blood pressure 101/40, patient is tachypneic more than 30 per minutes. PEEP is lower. wbc of 11.3, hemoglobin 9.4, sodium 140, creatinine 0.8. chest x-ray: mild worsening infiltrate in the left lobe. patient continued with the same treatment of clindamycin, levaquin, dexamethasone, keppra and she received 1 l of normal saline today. 09/16/2021 Patient is seen and evaluated and follow-up continues to be closely monitored in the ICU. Multiple medical consultations following including infectious disease, pulmonary veterinary bacteriologist, and neurology. Patient continues on mechanical vent with an FiO2 of 50% and PEEP is 10. Weaning is being continued and PEEP is being titrated down to 8. Patient continues with sedation holidays and very minimal propofol and patient is now off Nimbex and very minimal stimulus noted. Patient response to painful stimulus minimally. Plan is for possible CT of the brain repeat this afternoon. Patient also being closely monitored for continued seizures of which she does have a past medical history of. Patient is also Covid positive and infectious disease is following and patient is maintained on clindamycin along with Levaquin. Chest x-ray today shows correlate for left lower lobe pneumonia versus atelectasis with possible associated effusion. 09/17/2021 Patient is seen in follow-up this morning closely monitored in the ICU. Neurology also following and patient is maintained on IV Keppra. Patient also continues on IV antibiotics in the form of aztreonam and clindamycin with infectious disease following. Patient urine culture showing E. coli. Chest x- ray today shows chronic emphysematous changes with left basilar acute infiltrate and/or atelectasis and likely small left pleural effusion all redemonstrated with no significant change from previous day. Neurology following And okay to resume anticoagulant as there is no evidence of new intracranial process or hemorrhage. Patient is off sedation and continues to be unresponsive. 09/18/2021 Patient is evaluated again this morning and continues to be in the ICU on mechanical vent and being closely monitored. FiO2 is at 45% and PEEP is 8. Patient continues to be off sedation with no response for over 24 hours. Neurology following as well and have discussed overall prognosis with family and family discussing with other family members about CODE STATUS and treatment plan moving forward. Infectious disease also following and patient is maintained on IV Levaquin along with clindamycin and aztreonam and will continue. Urine cultures finalized showing E. coli and sputum culture preliminary is pending at this time. 09/19/2020 Patient evaluated today in the ICU on mechanical ventilation. Fi02 at 45% with a PEEP of 8. Propofol infusing, Nimbex and Levophed are currently on hold. Pre cedex discontinued. There has been no response, and mental status is not improving. Still no response to verbal stimuli. Patient is being followed closely by neurology for this and is on IV keppra and tegretol. EEG consistant with toxic metabolic encepholapthy. Repeat chest xray today shows similar opacities given patient rotation. Stable support tubes. Mild pulmonary vascular congestion correlate with serum BNP. Blood cultures negative, pending finalized, sputum negative so far. Labs reviewed today: WBC 9.2, hgb 10.3, sodium 138, potassium 3.8, BUN 33, Cr 0.76, glucose in the 110's, calcium 7.9, AST 250, ALT 78, Albumin 2.3. Vitals reviewed: Temp 97.4, HR 126, RR 44, Blood pressure 113/80, 96% oxygen saturation on mechanical ventilation. 09/20/2021 Patient evaluated in ICU on mechanical ventilation with an Fi02 of 45%, PEEP of 12. Chest xray today shows left lower lobe atelectasis versus pneumonia with similar findings as previous. BNP yesterday 12,500, however xray reviewed and do es not appear to be showing heart failure. She is in negative fluid balance. Status was addressed with family by neurology who is awaiting a phone call back. White count 12.8, RBC 3.5, sodium 137 potassium 3.8, chloride 101, CO2 33, BUN 35, creatinine 0.68, blood sugars in the 120s, AST 424, ALT 115, alk phos 63. Running temps today 100.8, heart rate 123, respiratory rate 36, blood pressure 95/65, oxygen saturation of 93-94%. Blood pressures are on the softer side 88/55. Current infusions include propofol which has been resumed as patient has not shown any signs of neurological improvement while on a propofol break. 09/21/2021 Patient is seen in follow up today and continues to be on mechanical vent with an FI02 of 45% with a peep of 8 and multiple medical consultations following. Chest xray similar from previous with copd and continued focal basilar left lower lobe retrocardiac consolidation or atelectasis. Patient is on propofol and general surgery has been consulted for peg and trach placement. Plan for surgery is tomorrow. 09/22/2021 Patient is seen and evaluated in follow-up this morning continues on mechanical ventilation with a PEEP of 8 and FiO2 is 45%. General surgery following an plan is for PEG and trach placement today due to prolonged mechanical ventilation and no improvements or weaning from the vent. Patient continues on tube feeding along with Lovenox which is currently on hold for the surgical procedure. Patient's chest x-ray today shows diffuse bilateral infiltrates that are stable with no pneumothorax or pleural effusion noted. Patient also had gallbladder ultrasound secondary to elevated liver functions and shows hepatomegaly otherwise unremarkable. Patient is continued on antifungal's along with vancomycin and infectious disease following closely. Sputum cultures preliminary showing Radha glabrata and Staphylococcus aureus and most recent blood cultures have been negative. 09/23/2021 Patient is seen in follow-up this morning and patient was unable to receive PEG and trach with general surgery following yesterday and plan is for today. Patient continues on mechanical vent and FiO2 is 45% with a PEEP of 8. Lovenox and tube feeding currently on hold. Chest xray reviewed and no acute changes from yesterday. Continues to be unresponsive. Prognosis remains poor. 09/24/2021 Patient is seen this morning status post PEG and trach placement and is resuming tube feedings with general surgery following. Patient continues on mechanical vent with an FiO2 of 40% and PEEP is 8. Per nursing staff working on weaning sedation and assessing neuro status. Continues with being obtunded and no purposeful movements noted. Chest xray shows COPD with improvement in previous left pleural effusion with mild patchy infiltrates/retrocardiac atelectasis noted. 09/25/2021 Patient is seen and evaluated today continues to be in the ICU on mechanical ventilation and continues on sedation with attempts at weaning. FI02 is 40% and peep of 8. Multiple medical consultations following. Plan is for repeat ct of the brain sometime this afternoon. Per nursing staff patient is tolerating tube feeds. Chest xray today shows suboptimal study due to positioning and unable to exclude some worsening atelectasis or infiltrate. 09/26/2021 Patient is in the MICU. Status post tracheostomy and PEG tube placement on 09/23/2021 remains on mechanical ventilator. FiO2 40% and PEEP of 8. Patient remains unresponsive and does not follow simple commands. Repeat CT done on 09/25/2021 showed findings consistent with cerebrovascular infarction bilaterally. May be indicative of otitis media bilaterally. No acute brain abnormality evident. Patient is being continued antibiotics in the form of Levaquin and Eraxis per bacterial pneumonia and sputum cultures growing Radha and staph aureus. Laboratory data showed WBC 8.7 hemoglobin 8.8 and platelets 330 Sodium 138 potassium 3.6 chloride 102 bicarb is 34 BUN 2019 creatinine 0.38 and calcium 8.4 Patient is being continued antibiotics and antiepileptic medications. Pulmonary, neurology and ID is on board. 09/27/2019 Patient is in the MICU. Status post tracheostomy and PEG tube placement and mechanical ventilator. Patient is off sedation. Currently on assist control with tidal volume 325 FiO2 35% and PEEP of 8. Patient remains obtunded and does not follow simple commands. Chest x-ray showed improvement in the opacity in the obscuring the left hemidiaphragm on the prior study. Most likely represents decreasing small pleural effusion Laboratory showed WBC 8.3 hemoglobin 9.5 platelets 102 sodium 138 potassium 4.0 chloride 103 bicarb is 31 BUN 2020 creatinine 0.45 calcium 8.8 patient is being current on antibiotics in the form of Levaquin and Eraxis. Decadron has been discontinued. 10/02/2021 Patient is able to open her eyes with verbal stimuli. Able to move her upper extremities. But patient is unable to move her lower extremities. Feels extremely weak. Able to follow simple commands. Patient is mechanical ventilator via trach tube. Chest x-ray showed unchanged with atelectasis of the left lung base. Patient remains antibiotics above vancomycin. Sputum cultures are growing staph aureus. Patient is on anticoagulation with Eliquis.. Patient is on amiodarone and also on antiepileptic medications. Laboratory data showed WBC 6.4 hemoglobin 8.9 and platelets 219 sodium 136 potassium 3.5 chloride 104 bicarb is 25 BUN 21 creatinine 0.34 and calcium 8.3 Neurology and pulmonary is on board. 10/03/2021 Patient is awake and alert. Able to move her upper extremities. Feels generalized weakness and remains on mechanical ventilator. Currently on pressure support. With PEEP of 5. Patient has been afebrile. Currently on antibiotics in the form of vancomycin. Chest x-ray showed no acute abnormalities. Ongoing left lower lobe atelectasis. Patient is tolerating tube feeding. Laboratory showed WBC 6.8 hemoglobin 8.3 and platelets 201 sodium 135 potassium 3.5 chloride 103 bicarb is 26 BUN 69 creatinine 0.38 and blood sugar is 102 calcium 8.4 Patient is being continued antibiotics in the form of vancomycin. Cardiogram Eliquis and multivitamins. Current antiblood medication. Patient remains sinus rhythm. PVCs noted. 10/04/2021 Patient remains on mechanical ventilator via tracheostomy tube. Pressure control with FiO2 40% and PEEP of 5. Patient is otherwise awake alert and able to follow simple commands. Continues to have extreme weakness. Able to move her upper extremities but not lower extremities. Chest x-ray showed persistent left lower lobe effusion/consolidation. Patient is being continued on antibiotics in the form of vancomycin. Sputum cultures growing Radha species. Not albicans. Patient remains on antibiotics. Also on Eraxis. T-max 100.1. Patient is sinus rhythm. Continue anticoagulation with Eliquis and rate control with metoprolol and also on oral amiodarone. Laboratory data showed WBC 6.1 hemoglobin 7.8 and platelets 239 sodium 133 potassium 3.6 chloride 100 bicarb is 28 BUN 19 and creatinine 0.4 and blood sugar is 111 calcium 8.3 and vancomycin trough is 37.1. Pulmonary, ID and neurology is on board. 10/24/2021 Patient is currently sitting in a chair comfortable. Patient is trach collar requirement 40% FiO2. Awake alert and oriented x3. Patient is also emotional. Denies any complaints of chest pain or worsening shortness of breath. No nausea vomiting abdominal pain or diarrhea. Tolerating tube feeding. Laboratory data showed sodium 142 potassium 4.1 chloride 103 BUN 30.8 and creatinine 0.4 blood s ugar is 127. Albumin 3.5 Pulmonary is on board. Plan to place on speaking valve. Patient is being current Eliquis and a Medrol due to history of paroxysmal atrial fibrillation also antiepileptic medications. Heart rate is controlled. Current medications reviewed. Objective - Vital Signs Vital signs: Vital Signs Temp 98.1 F 10/24/21 11:27 Pulse 84 10/24/21 11:27 Resp 20 10/24/21 11:27 BP 109/63 10/24/21 11:27 Pulse Ox 97 10/24/21 11:27 Intake & Output 10/23/21 10/24/21 10/24/21 18:59 06:59 18:59 Intake Total 360 1800 Balance 360 1800 Weight 53.9 kg Intake: Tube Feeding 360 1800 Other: Voiding Method Bedside Commode Toilet Bedpan Bedside Commode Diaper Bedpan Diaper # Voids 1 0 # Bowel Movements 1 ABP, PAP, CO, CI - Last Documented Arterial Blood Pressure 123/58 - Exam - Constitutional General appearance: Present: no acute distress, thin - EENT Eyes: Present: EOMI, PERRLA ENT: Present: normal oropharynx Ears: bilateral: normal - Neck Details: trach in place - Respiratory Respiratory: bilateral: diminished - Cardiovascular Heart rate: 70 Rhythm: regular Heart sounds: normal: S1, S2 - Gastrointestinal Gastrointestinal Comment(s): PEG tube General gastrointestinal: Present: normal bowel sounds - Integumentary Integumentary: Present: normal - Neurologic Neurologic: Present: focal deficits - Musculoskeletal Musculoskeletal: Present: right sided weakness, left sided weakness - Psychiatric Psychiatric: Present: A&O x's 3, appropriate affect, intact judgment & insight - Labs CBC & Chem 7: 10/22/21 06:37 10/24/21 07:03 Labs: Abnormal Lab Results - Last 24 Hours (Table) 10/23/21 10/24/21 10/24/21 Range/Units 17:11 07:01 07:03 BUN 30.8 H (9.0-27.0) mg/dL Creatinine 0.4 L (0.6-1.5) mg/dL BUN/Creatinine Ratio 80.84 H (12.00-20.00) Ratio Glucose 121 H (70-110) mg/dL POC Glucose (mg/dL) 117 H 127 H (75-99) mg/dL Total Bilirubin <0.15 L (0.30-1.20) mg/dL Albumin 3.5 L (3.8-4.9) g/dL Albumin/Globulin Ratio 1.12 L (1.60-3.17) g/dL 10/24/21 Range/Units 12:46 BUN (9.0-27.0) mg/dL Creatinine (0.6-1.5) mg/dL BUN/Creatinine Ratio (12.00-20.00) Ratio Glucose (70-110) mg/dL POC Glucose (mg/dL) 129 H (75-99) mg/dL Total Bilirubin (0.30-1.20) mg/dL Albumin (3.8-4.9) g/dL Albumin/Globulin Ratio (1.60-3.17) g/dL Assessment and Plan Assessment: Altered mental status secondary to metabolic encephalopathy, ruled out intercranial lesions, improved Acute hypoxic respiratory failure secondary to COVID-19 pneumonia, s/p tracheostomy Status post tracheostomy and PEG tube placement Sepsis secondary to UTI and COVID-19 pneumonia, resolved with treatment Paroxysmal atrial fibrillation on anticoagulation with Eliquis. Breakthrough seizure, history of previous seizures Unstageable sacral pressure ulcer Cardiomyopathy, EF of 30-35% Acute kidney injury, improved with treatment History of coronary artery disease history of pulmonary embolism History 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 left foot drop Status post permanent pacemaker History of glaucoma but surgical intervention Full code Plan: She continues to require tracheostomy, has been weaned to 40% FiO2 with T piece, continue following pulmonary recommendations Psychiatry found patient has the cognitive ability to make own medical decisions Continue tube feedings, following dietitian recommendations Continue current medication regimen Continue monitoring her mental status for any changes Continue Wound care for unstageable sacral pressure wound Discharge to subacute rehab , waiting for accepting facility Further recommendations to come based on patient's clinical course Time with Patient: Greater than 30
[2021-10-25 00:30] LABS: Basophils # (A) 0.04 X 10*3/uL (0.00-0.10); Basophils % (A) 0.5 %; Eosinophils # (A) 0.46 X 10*3/uL (0.04-0.35); Eosinophils % (A) 6.2 %; HCT 28.2 % (37.2-46.3); HGB 8.3 g/dL (12.0-15.0); Immature Grans, Automated 0.4 %; Lymphocytes # (A) 1.03 X 10*3/uL (0.90-5.00); Lymphocytes % (A) 13.9 %; MCH 30.1 pg (27.0-32.0); MCHC 29.4 g/dL (32.0-37.0); MCV 102.2 fL (80.0-97.0); Mean Platelet Volume 11.1 fL (9.5-12.2); Monocytes % (A) 6.7 %; NRBC Per 100 WBC 0 /100 WBCS (0.0-0.0); Neutrophils # (A) 5.37 X 10*3/uL (1.80-7.70); Neutrophils % (A) 72.3 %; Platelet Count 411 X 10*3/uL (140-440); RBC 2.76 X 10*6/uL (4.10-5.20); RDW 15.3 % (11.5-14.5); WBC 7.43 X 10*3/uL (4.50-10.00)
[2021-10-25 02:00] LABS: Glucose,Whole Blood 122 mg/dL (75-99)
[2021-10-25] MEDS: ALPRAZolam 0.5 MG TAB PO PRN ×3 (04:33→22:19)
[2021-10-25 06:08] LABS: Glucose,Whole Blood 125 mg/dL (75-99)
[2021-10-25] MEDS: APIXABAN 5 MG TAB PO SCH ×2 (07:48→21:38)
[2021-10-25] MEDS: AMIODARONE 200 MG TAB PO SCH (07:48)
[2021-10-25] MEDS: QUEtiapine 50 MG TAB PO SCH ×2 (07:48→21:39)
[2021-10-25] MEDS: PANTOPRAZOLE 40 MG/10 ML VIAL IV SCH (07:48)
[2021-10-25] MEDS: carBAMazepine 200 MG TAB PO SCH ×3 (07:48→21:40)
[2021-10-25] MEDS: METOPROLOL TARTRATE 25 MG TAB PO SCH ×2 (07:48→21:38)
[2021-10-25] MEDS: CHOLECALCIFEROL 125 MCG (5000 IU) TABLET PO SCH (07:48)
[2021-10-25] MEDS: HYDROcodone/APAP 15 ML SOLUTION PO PRN (07:49)
[2021-10-25 09:10] LABS: Basophils # (A) 0.06 X 10*3/uL (0.00-0.10); Basophils % (A) 0.7 %; Eosinophils # (A) 0.45 X 10*3/uL (0.04-0.35); Eosinophils % (A) 5.3 %; HCT 26.6 % (37.2-46.3); Immature Grans, Automated 0.6 %; Lymphocytes # (A) 1.25 X 10*3/uL (0.90-5.00); Lymphocytes % (A) 14.8 %; MCH 30.7 pg (27.0-32.0); MCHC 30.1 g/dL (32.0-37.0); MCV 101.9 fL (80.0-97.0); Mean Platelet Volume 10.5 fL (9.5-12.2); Monocytes # (A) 0.62 X 10*3/uL (0.20-1.00); Monocytes % (A) 7.3 %; NRBC Per 100 WBC 0 /100 WBCS (0.0-0.0); Neutrophils # (A) 6.03 X 10*3/uL (1.80-7.70); Neutrophils % (A) 71.3 %; Platelet Count 374 X 10*3/uL (140-440); RBC 2.61 X 10*6/uL (4.10-5.20); RDW 15.6 % (11.5-14.5); WBC 8.46 X 10*3/uL (4.50-10.00)
[2021-10-25 09:16] LABS: African American GFR (CKD) 140.8 (60.0-200.0); Anion Gap 13.7 mmol/L (10.00-18.00); BUN/Creat Ratio 77.25 Ratio (12.00-20.00); Blood Urea Nitrogen 30.9 mg/dL (9.0-27.0); Calcium 9.2 mg/dL (8.7-10.3); Carbon Dioxide 25.3 mmol/L (20.0-27.5); Non-African American GFR(CKD) 121.4 (60.0-200.0); Potassium 3.8 mmol/L (3.5-5.5)
[2021-10-25 11:55] LABS: Glucose,Whole Blood 132 mg/dL (75-99)
[2021-10-25] MEDS: ACETAMINOPHEN TAB 325 MG TAB PO PRN (13:54)
[2021-10-25] MEDS: SODIUM CHLORIDE 0.9% 1,000 ML IV SCH (15:14)
--- NOTE | 2021-10-25 15:24 | P.PN ---
Subjective Progress Note Date: 10/25/21 This is a 51-year-old female patient with established COVID 19 related pneumonia, prolonged respiratory failure, was currently in the intensive care unit being seen for a follow-up. I am seeing this patient for a follow-up today on 10/25/2021. The patient is doing well. As usual, she is a bit restless and emotional anxious. She does not like the tracheostomy tube. I do not see that all to keep a tracheostomy tube in place for now especially the patient's respiratory secretions improved and the patient has also established a better physical functionality and strength. She has a decent cough and she should be able to expectorate and clear rest or secretions. She is currently on a trach collar the total bili discontinued. I also intend to be cannulated this patient today. The patient remains on anticoagulation with Eliquis. The patient remains on Xanax for anxiety. The patient was not found at 8.4 with a hemoglobin above 8, sodium is at 141 and the patient's BUN is at 30 with a creatinine of 0.4. Glucose is 132. The patient has been otherwise doing well. She is receiving enteral feeding for nutritional support. She remains on anticoagulation with Eliquis 5 mg twice a day. She is still on Keppra 1.5 g by mouth twice a day. No seizure activity has been noted. Objective - Vital Signs Vital signs: Vital Signs Temp 98.0 F 10/25/21 14:40 Pulse 78 10/25/21 14:40 Resp 20 10/25/21 14:40 BP 104/61 10/25/21 14:40 Pulse Ox 99 10/25/21 14:40 Intake & Output 10/24/21 10/25/21 10/25/21 18:59 06:59 18:59 Intake Total 1440 Output Total 2 Balance 1438 Intake: IV 0 Sodium Chloride 0.9% 1, 0 000 ml @ 20 mls/hr IV . Q24H [facility] Rx#:[id number] Oral 0 Tube Feeding 1440 Output: Stool 1 Urine/Stool Mix 1 Other: Voiding Method Toilet Bedside Commode Bedpan Diaper # Voids 1 3 # Bowel Movements 1 ABP, PAP, CO, CI - Last Documented Arterial Blood Pressure 123/58 - Exam GENERAL EXAM: Alert, 51-year-old female patient, up in a chair at the bedside, T piece in place at 40% FiO2, comfortable in no apparent distress. HEAD: Normocephalic. EYES: Normal reaction of pupils, equal size. NOSE: Clear with pink turbinates. THROAT: Endotracheal tube secured in place. No erythema or exudates. Very poor dentition NECK: No masses, no JVD. CHEST: No chest wall deformity. LUNGS: Equal air entry with scattered rhonchi. CVS: S1 and S2 normal with no audible murmur, regular rhythm. ABDOMEN: PEG tube exit site clean and dry. No hepatosplenomegaly, normal bowel sounds, no guarding or rigidity. SPINE: No scoliosis or deformity SKIN: Breakdown on the coccyx unstageable. CENTRAL NERVOUS SYSTEM: No focal deficits, previous CVA with left-sided wea kness. EXTREMITIES: Left upper extremity remains weak from previous CVA There is no peripheral edema. Peripheral pulses are intact. - Labs CBC & Chem 7: 10/25/21 06:22 10/25/21 06:22 Labs: Abnormal Lab Results - Last 24 Hours (Table) 10/24/21 10/24/21 10/25/21 Range/Units 07:03 17:19 01:40 RBC 2.76 L (4.10-5.20) X 10*6/uL Hgb 8.3 L (12.0-15.0) g/dL Hct 28.2 L (37.2-46.3) % MCV 102.2 H (80.0-97.0) fL MCHC 29.4 L (32.0-37.0) g/dL RDW 15.3 H (11.5-14.5) % Immature Gran # (0.00-0.04) X 10*3/uL Eosinophils # 0.46 H (0.04-0.35) X 10*3/uL BUN (9.0-27.0) mg/dL Creatinine (0.6-1.5) mg/dL BUN/Creatinine Ratio (12.00-20.00) Ratio Glucose (70-110) mg/dL POC Glucose (mg/dL) 110 H 122 H (75-99) mg/dL 10/25/21 10/25/21 10/25/21 Range/Units 06:06 06:22 06:22 RBC 2.61 L (4.10-5.20) X 10*6/uL Hgb 8.0 L (12.0-15.0) g/dL Hct 26.6 L (37.2-46.3) % MCV 101.9 H (80.0-97.0) fL MCHC 30.1 L (32.0-37.0) g/dL RDW 15.6 H (11.5-14.5) % Immature Gran # 0.05 H (0.00-0.04) X 10*3/uL Eosinophils # 0.45 H (0.04-0.35) X 10*3/uL BUN 30.9 H (9.0-27.0) mg/dL Creatinine 0.4 L (0.6-1.5) mg/dL BUN/Creatinine Ratio 77.25 H (12.00-20.00) Ratio Glucose 111 H (70-110) mg/dL POC Glucose (mg/dL) 125 H (75-99) mg/dL 10/25/21 Range/Units 11:53 RBC (4.10-5.20) X 10*6/uL Hgb (12.0-15.0) g/dL Hct (37.2-46.3) % MCV (80.0-97.0) fL MCHC (32.0-37.0) g/dL RDW (11.5-14.5) % Immature Gran # (0.00-0.04) X 10*3/uL Eosinophils # (0.04-0.35) X 10*3/uL BUN (9.0-27.0) mg/dL Creatinine (0.6-1.5) mg/dL BUN/Creatinine Ratio (12.00-20.00) Ratio Glucose (70-110) mg/dL POC Glucose (mg/dL) 132 H (75-99) mg/dL Assessment and Plan Plan: 1 Acute hypoxic respiratory failure secondary to COVID-19 pneumonia, intubated on 09/11/2021, status post tracheostomy and PEG tube placement on 09/23/2021, presently on T peice at 40%. The respiratory secretions are minimal for now. The patient is doing well. She has good cough and mechanism and good ability to do pulmonary toileting and I'm in favor of the cannulating this patient today. 2 Altered mental status, acute toxic metabolic encephalopathy. No acute CVA noted on brain CT. Significantly improved. The patient's mental status is back to its baseline. 3 Acute COVID-19 pneumonia, resolved. 4 History of seizure activity. Under control. The patient remains on Keppra 1.5 g twice a day 5 Previous history of pulmonary embolism, on long-term treatment with Eliquis. No signs of any bleeding. 6 Paroxysmal atrial fibrillation, anticoagulated with Eliquis 7 Cardiomyopathy and LV dysfunction with ejection fraction of 30-35%. 8 History of pacemaker implantation. 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 Plan: decannulated tracheostomy tube Apply oxygen by nasal cannula Continue nutritional support with vital AF via PEG tube Continue with physical therapy May need to do a swallow evaluation with the next 24 hours probably tomorrow Continue rest of the medications We will continue to follow
--- NOTE | 2021-10-25 22:30 | P.PN ---
Subjective Progress Note Date: 10/25/21 This is a pleasant 51 years old female with past medical history of Coronary Artery Disease, Heart Failure, CVA/TIA, Pulmonary Embolus (PE), Seizure Disorder, Last seizure 2009, CVA 2007 with L sided weakness arm and leg and has L foot drop, TIA 2018, cardiomyopathy, R PE and pneumothorax/pneumonia following leg fracture in 1994, gestational diabetes with all pregnancies , bilateral glaucoma with surgery, psoriasis in the past, UTIs. She is a status post Pacemaker, history of Bilateral eye surgery for glaucoma, Anxiety, Depression, Current every day smoker Patient presents because of altered mental status. Information was limited from the patient. It was obtained from the chart and medical staff. Also as per family patient was able to go to the bathroom, was more lethargic and tired over the last day. While in the emergency room focal mild seizure is noticed On admission patient had and fever of 101. She is tachypneic at 26-40, tachycardic 110-140, also she is hypoxic saturating 72% on room air Labs showing WBC of 10.5, hemoglobin of 16.3, platelet count of 197. INR 1.7. Sodium 164, creatinine 1.7, lactic acid elevated 4.6. Liver enzymes elevated with AST 202 and ALT 81. Bilirubin is normal at 1.3. Urine analysis is highly suspicious of infection Urine drug screen is negative Cash versus positive Chest x-ray showing left perihilar and left lower lobe area of infiltrate and small effusion correlates for pneumonia CT of the brain without contrast showing no intracranial hemorrhage, evidence of remote ischemic change. However there is vague low attenuation near the left thalamus and left cerebral peduncle. Acute ischemia in the differential diagnosis. Recommend stat MRI of brain with MRSA agdaagux of [place] as clinically warranted. In the emergency room patient was started on aztreonam and IV vancomycin, Keppra and heparin drip 09/11/2021 Patient today was still in the ICU, she was very weak and obtunded, she will wake up to certain stabilized and moans, she does not follow commands she cannot, gait she moved both extremities symmetrically. R on she had collapse of her left lung cancer and she has to be intubated and repeat chest x-ray showing better. A of the left lung. She is tachypneic with a breathing rate 22, no more fever since yesterday. Her sodium improved down to 144 and she was started on normal saline, creatinine 1.1, Ejection fraction showed 30-35% which is slice worsened from 06/2021 where it was 35-40% She remains on dexamethasone, IV vancomycin and clindamycin, heparin drip, Keppra and normal saline at 75 mL/h 09/12/2021 Patient with respiratory failures and she was intubated and placed on mechanical ventilation with pulmonary/critical care team following her mostly. There is no more seizure-like activity noticed. She still tachypneic with a breathing rate of 32 blood pressure 100/70, she is needing FiO2 of 80% and PEEP of 20. She has no more fevers since admission. Urine culture is growing gram-negative bacilli. Sodium is 146, WBCs is increased at 16.5 K. PH showing acidosis with 7.1 and elevated pCO2 at 83. Chest x-ray showing left sided opacities with near full. A of the left lung. Patient kept on antibiotics in the form of clindamycin and Levaquin and fluconazole. Also she remains on dexamethasone, and so a heparin to Lovenox. Also continued on seizure medication 1500 mg twice a day and IV fluids per pulmonary team. Neurology team on the case 09/13/2021 Patient remains intubated and sedated with pulmonary/critical care team following her closely. Her PEEP is lower today to 18. She remains on FiO2 of 50%. She is tachypneic at 32 about blood pressure is controlled. Her inflammatory markers are increased to LDH of 1009 and CRP of 25.1. Bicarb is elevated at 31 WBC is 17.7, sodium improved to 142. Creatinine improved to 0.6. Chest x-ray showed improving left lung infiltrate. PH is improved slightly 7.2 with pCO2 is slightly better at 79. Urine culture is growing E. coli which is sensitive to the antibiotics. Currently patient is covered with clindamycin, Levaquin and fluconazole. Also she is on dexamethasone 6 mg, Keppra 1500 mg and half-normal saline at 50 mL per hour Anticoagulation switch from heparin drip and to Lovenox 09/14/2021 Patient still intubated and sedated on mechanical ventilation with pulmonary/critical care team following her closely and just her vent setting. Today her FiO2 of 55%, and she is tachypneic at 33 breath per minute. Labs showing stable findings with sodium 141, creatinine 0.8, liver enzymes slightly elevated, LDH slightly down at 797 and CRP 2-3.2. Same leukocytosis at 14.7. Her pH is 7.2 and carbon dioxide is 82. D-dimer mildly elevated at 0.9, just x-ray showing bilateral infiltrate with no significant change from prior. She remains on the same antibiotic of clindamycin, Levaquin, dexamethasone, Keppra 1500 mg and half normal saline at 50 mL/h 09/15/2021 Patient in the ICU intubated and sedated, with pulmonary/critical care team following closely. FiO2 still 50%, hemodynamically showing both staple blood pressure 101/40, patient is tachypneic more than 30 per minutes. PEEP is lower. wbc of 11.3, hemoglobin 9.4, sodium 140, creatinine 0.8. chest x-ray: mild worsening infiltrate in the left lobe. patient continued with the same treatment of clindamycin, levaquin, dexamethasone, keppra and she received 1 l of normal saline today. 09/16/2021 Patient is seen and evaluated and follow-up continues to be closely monitored in the ICU. Multiple medical consultations following including infectious disease, pulmonary naval designer, and neurology. Patient continues on mechanical vent with an FiO2 of 50% and PEEP is 10. Weaning is being continued and PEEP is being titrated down to 8. Patient continues with sedation holidays and very minimal propofol and patient is now off Nimbex and very minimal stimulus noted. Patient response to painful stimulus minimally. Plan is for possible CT of the brain repeat this afternoon. Patient also being closely monitored for continued seizures of which she does have a past medical history of. Patient is also Covid positive and infectious disease is following and patient is maintained on clindamycin along with Levaquin. Chest x-ray today shows correlate for left lower lobe pneumonia versus atelectasis with possible associated effusion. 09/17/2021 Patient is seen in follow-up this morning closely monitored in the ICU. Neurology also following and patient is maintained on IV Keppra. Patient also continues on IV antibiotics in the form of aztreonam and clindamycin with infectious disease following. Patient urine culture showing E. coli. Chest x- ray today shows chronic emphysematous changes with left basilar acute infiltrate and/or atelectasis and likely small left pleural effusion all redemonstrated with no significant change from previous day. Neurology following And okay to resume anticoagulant as there is no evidence of new intracranial process or hemorrhage. Patient is off sedation and continues to be unresponsive. 09/18/2021 Patient is evaluated again this morning and continues to be in the ICU on mechanical vent and being closely monitored. FiO2 is at 45% and PEEP is 8. Patient continues to be off sedation with no response for over 24 hours. Neurology following as well and have discussed overall prognosis with family and family discussing with other family members about CODE STATUS and treatment plan moving forward. Infectious disease also following and patient is maintained on IV Levaquin along with clindamycin and aztreonam and will continue. Urine cultures finalized showing E. coli and sputum culture preliminary is pending at this time. 09/19/2020 Patient evaluated today in the ICU on mechanical ventilation. Fi02 at 45% with a PEEP of 8. Propofol infusing, Nimbex and Levophed are currently on hold. Pre cedex discontinued. There has been no response, and mental status is not improving. Still no response to verbal stimuli. Patient is being followed closely by neurology for this and is on IV keppra and tegretol. EEG consistant with toxic metabolic encepholapthy. Repeat chest xray today shows similar opacities given patient rotation. Stable support tubes. Mild pulmonary vascular congestion correlate with serum BNP. Blood cultures negative, pending finalized, sputum negative so far. Labs reviewed today: WBC 9.2, hgb 10.3, sodium 138, potassium 3.8, BUN 33, Cr 0.76, glucose in the 110's, calcium 7.9, AST 250, ALT 78, Albumin 2.3. Vitals reviewed: Temp 97.4, HR 126, RR 44, Blood pressure 113/80, 96% oxygen saturation on mechanical ventilation. 09/20/2021 Patient evaluated in ICU on mechanical ventilation with an Fi02 of 45%, PEEP of 12. Chest xray today shows left lower lobe atelectasis versus pneumonia with similar findings as previous. BNP yesterday 12,500, however xray reviewed and do es not appear to be showing heart failure. She is in negative fluid balance. Status was addressed with family by neurology who is awaiting a phone call back. White count 12.8, RBC 3.5, sodium 137 potassium 3.8, chloride 101, CO2 33, BUN 35, creatinine 0.68, blood sugars in the 120s, AST 424, ALT 115, alk phos 63. Running temps today 100.8, heart rate 123, respiratory rate 36, blood pressure 95/65, oxygen saturation of 93-94%. Blood pressures are on the softer side 88/55. Current infusions include propofol which has been resumed as patient has not shown any signs of neurological improvement while on a propofol break. 09/21/2021 Patient is seen in follow up today and continues to be on mechanical vent with an FI02 of 45% with a peep of 8 and multiple medical consultations following. Chest xray similar from previous with copd and continued focal basilar left lower lobe retrocardiac consolidation or atelectasis. Patient is on propofol and general surgery has been consulted for peg and trach placement. Plan for surgery is tomorrow. 09/22/2021 Patient is seen and evaluated in follow-up this morning continues on mechanical ventilation with a PEEP of 8 and FiO2 is 45%. General surgery following an plan is for PEG and trach placement today due to prolonged mechanical ventilation and no improvements or weaning from the vent. Patient continues on tube feeding along with Lovenox which is currently on hold for the surgical procedure. Patient's chest x-ray today shows diffuse bilateral infiltrates that are stable with no pneumothorax or pleural effusion noted. Patient also had gallbladder ultrasound secondary to elevated liver functions and shows hepatomegaly otherwise unremarkable. Patient is continued on antifungal's along with vancomycin and infectious disease following closely. Sputum cultures preliminary showing Radha glabrata and Staphylococcus aureus and most recent blood cultures have been negative. 09/23/2021 Patient is seen in follow-up this morning and patient was unable to receive PEG and trach with general surgery following yesterday and plan is for today. Patient continues on mechanical vent and FiO2 is 45% with a PEEP of 8. Lovenox and tube feeding currently on hold. Chest xray reviewed and no acute changes from yesterday. Continues to be unresponsive. Prognosis remains poor. 09/24/2021 Patient is seen this morning status post PEG and trach placement and is resuming tube feedings with general surgery following. Patient continues on mechanical vent with an FiO2 of 40% and PEEP is 8. Per nursing staff working on weaning sedation and assessing neuro status. Continues with being obtunded and no purposeful movements noted. Chest xray shows COPD with improvement in previous left pleural effusion with mild patchy infiltrates/retrocardiac atelectasis noted. 09/25/2021 Patient is seen and evaluated today continues to be in the ICU on mechanical ventilation and continues on sedation with attempts at weaning. FI02 is 40% and peep of 8. Multiple medical consultations following. Plan is for repeat ct of the brain sometime this afternoon. Per nursing staff patient is tolerating tube feeds. Chest xray today shows suboptimal study due to positioning and unable to exclude some worsening atelectasis or infiltrate. 09/26/2021 Patient is in the MICU. Status post tracheostomy and PEG tube placement on 09/23/2021 remains on mechanical ventilator. FiO2 40% and PEEP of 8. Patient remains unresponsive and does not follow simple commands. Repeat CT done on 09/25/2021 showed findings consistent with cerebrovascular infarction bilaterally. May be indicative of otitis media bilaterally. No acute brain abnormality evident. Patient is being continued antibiotics in the form of Levaquin and Eraxis per bacterial pneumonia and sputum cultures growing Radha and staph aureus. Laboratory data showed WBC 8.7 hemoglobin 8.8 and platelets 330 Sodium 138 potassium 3.6 chloride 102 bicarb is 34 BUN 2019 creatinine 0.38 and calcium 8.4 Patient is being continued antibiotics and antiepileptic medications. Pulmonary, neurology and ID is on board. 09/27/2019 Patient is in the MICU. Status post tracheostomy and PEG tube placement and mechanical ventilator. Patient is off sedation. Currently on assist control with tidal volume 325 FiO2 35% and PEEP of 8. Patient remains obtunded and does not follow simple commands. Chest x-ray showed improvement in the opacity in the obscuring the left hemidiaphragm on the prior study. Most likely represents decreasing small pleural effusion Laboratory showed WBC 8.3 hemoglobin 9.5 platelets 102 sodium 138 potassium 4.0 chloride 103 bicarb is 31 BUN 2020 creatinine 0.45 calcium 8.8 patient is being current on antibiotics in the form of Levaquin and Eraxis. Decadron has been discontinued. 10/02/2021 Patient is able to open her eyes with verbal stimuli. Able to move her upper extremities. But patient is unable to move her lower extremities. Feels extremely weak. Able to follow simple commands. Patient is mechanical ventilator via trach tube. Chest x-ray showed unchanged with atelectasis of the left lung base. Patient remains antibiotics above vancomycin. Sputum cultures are growing staph aureus. Patient is on anticoagulation with Eliquis.. Patient is on amiodarone and also on antiepileptic medications. Laboratory data showed WBC 6.4 hemoglobin 8.9 and platelets 219 sodium 136 potassium 3.5 chloride 104 bicarb is 25 BUN 21 creatinine 0.34 and calcium 8.3 Neurology and pulmonary is on board. 10/03/2021 Patient is awake and alert. Able to move her upper extremities. Feels generalized weakness and remains on mechanical ventilator. Currently on pressure support. With PEEP of 5. Patient has been afebrile. Currently on antibiotics in the form of vancomycin. Chest x-ray showed no acute abnormalities. Ongoing left lower lobe atelectasis. Patient is tolerating tube feeding. Laboratory showed WBC 6.8 hemoglobin 8.3 and platelets 201 sodium 135 potassium 3.5 chloride 103 bicarb is 26 BUN 69 creatinine 0.38 and blood sugar is 102 calcium 8.4 Patient is being continued antibiotics in the form of vancomycin. Cardiogram Eliquis and multivitamins. Current antiblood medication. Patient remains sinus rhythm. PVCs noted. 10/04/2021 Patient remains on mechanical ventilator via tracheostomy tube. Pressure control with FiO2 40% and PEEP of 5. Patient is otherwise awake alert and able to follow simple commands. Continues to have extreme weakness. Able to move her upper extremities but not lower extremities. Chest x-ray showed persistent left lower lobe effusion/consolidation. Patient is being continued on antibiotics in the form of vancomycin. Sputum cultures growing Radha species. Not albicans. Patient remains on antibiotics. Also on Eraxis. T-max 100.1. Patient is sinus rhythm. Continue anticoagulation with Eliquis and rate control with metoprolol and also on oral amiodarone. Laboratory data showed WBC 6.1 hemoglobin 7.8 and platelets 239 sodium 133 potassium 3.6 chloride 100 bicarb is 28 BUN 19 and creatinine 0.4 and blood sugar is 111 calcium 8.3 and vancomycin trough is 37.1. Pulmonary, ID and neurology is on board. 10/24/2021 Patient is currently sitting in a chair comfortable. Patient is trach collar requirement 40% FiO2. Awake alert and oriented x3. Patient is also emotional. Denies any complaints of chest pain or worsening shortness of breath. No nausea vomiting abdominal pain or diarrhea. Tolerating tube feeding. Laboratory data showed sodium 142 potassium 4.1 chloride 103 BUN 30.8 and creatinine 0.4 blood s ugar is 127. Albumin 3.5 Pulmonary is on board. Plan to place on speaking valve. Patient is being current Eliquis and a Medrol due to history of paroxysmal atrial fibrillation also antiepileptic medications. Heart rate is controlled. 10/25/2021 Patient is currently resting in bed. Awake and alert and less anxious today. Breathing status is stable. Tracheostomy is in place. Patient is tolerating tube feedings. Patient has been afebrile. No complaints of chest pain or worsening shortness of breath. No nausea vomiting abdominal pain or diarrhea. Pain is better controlled. Laboratory showed WBC 8.4 hemoglobin 8.0 and platelets 374 BUN 30.9 and creatinine 0.4 Patient is being continued apixaban and also amiodarone. Dexamethasone has been tapered off . patient is on Keppra. Current medications reviewed. Objective - Vital Signs Vital signs: Vital Signs Temp 98.0 F 10/25/21 14:40 Pulse 78 10/25/21 14:40 Resp 20 10/25/21 14:40 BP 104/61 10/25/21 14:40 Pulse Ox 99 10/25/21 14:40 Intake & Output 10/24/21 10/25/21 10/25/21 18:59 06:59 18:59 Intake Total 1440 Output Total 2 Balance 1438 Intake: IV 0 Sodium Chloride 0.9% 1, 0 000 ml @ 20 mls/hr IV . [facility] Rx#:[id number] Oral 0 Tube Feeding 1440 Output: Stool 1 Urine/Stool Mix 1 Other: Voiding Method Toilet Bedside Commode Bedpan Diaper # Voids 1 3 1 # Bowel Movements 1 ABP, PAP, CO, CI - Last Documented Arterial Blood Pressure 123/58 - Exam - Constitutional General appearance: Present: no acute distress, thin - EENT Eyes: Present: EOMI, PERRLA ENT: Present: normal oropharynx Ears: bilateral: normal - Neck Details: trach in place - Respiratory Respiratory: bilateral: diminished - Cardiovascular Heart rate: 70 Rhythm: regular Heart sounds: normal: S1, S2 - Gastrointestinal Gastrointestinal Comment(s): PEG tube General gastrointestinal: Present: normal bowel sounds - Integumentary Integumentary: Present: normal - Neurologic Neurologic: Present: focal deficits - Musculoskeletal Musculoskeletal: Present: right sided weakness, left sided weakness - Psychiatric Psychiatric: Present: A&O x's 3, appropriate affect, intact judgment & insight - Labs CBC & Chem 7: 10/25/21 06:22 10/25/21 06:22 Labs: Abnormal Lab Results - Last 24 Hours (Table) 10/24/21 10/24/21 10/25/21 Range/Units 07:03 17:19 01:40 RBC 2.76 L (4.10-5.20) X 10*6/uL Hgb 8.3 L (12.0-15.0) g/dL Hct 28.2 L (37.2-46.3) % MCV 102.2 H (80.0-97.0) fL MCHC 29.4 L (32.0-37.0) g/dL RDW 15.3 H (11.5-14.5) % Immature Gran # (0.00-0.04) X 10*3/uL Eosinophils # 0.46 H (0.04-0.35) X 10*3/uL BUN (9.0-27.0) mg/dL Creatinine (0.6-1.5) mg/dL BUN/Creatinine Ratio (12.00-20.00) Ratio Glucose (70-110) mg/dL POC Glucose (mg/dL) 110 H 122 H (75-99) mg/dL 10/25/21 10/25/21 10/25/21 Range/Units 06:06 06:22 06:22 RBC 2.61 L (4.10-5.20) X 10*6/uL Hgb 8.0 L (12.0-15.0) g/dL Hct 26.6 L (37.2-46.3) % MCV 101.9 H (80.0-97.0) fL MCHC 30.1 L (32.0-37.0) g/dL RDW 15.6 H (11.5-14.5) % Immature Gran # 0.05 H (0.00-0.04) X 10*3/uL Eosinophils # 0.45 H (0.04-0.35) X 10*3/uL BUN 30.9 H (9.0-27.0) mg/dL Creatinine 0.4 L (0.6-1.5) mg/dL BUN/Creatinine Ratio 77.25 H (12.00-20.00) Ratio Glucose 111 H (70-110) mg/dL POC Glucose (mg/dL) 125 H (75-99) mg/dL 10/25/21 Range/Units 11:53 RBC (4.10-5.20) X 10*6/uL Hgb (12.0-15.0) g/dL Hct (37.2-46.3) % MCV (80.0-97.0) fL MCHC (32.0-37.0) g/dL RDW (11.5-14.5) % Immature Gran # (0.00-0.04) X 10*3/uL Eosinophils # (0.04-0.35) X 10*3/uL BUN (9.0-27.0) mg/dL Creatinine (0.6-1.5) mg/dL BUN/Creatinine Ratio (12.00-20.00) Ratio Glucose (70-110) mg/dL POC Glucose (mg/dL) 132 H (75-99) mg/dL Assessment and Plan Assessment: Altered mental status secondary to metabolic encephalopathy, ruled out intercranial lesions, improved Acute hypoxic respiratory failure secondary to COVID-19 pneumonia, with Prolonge d hospital course. s/p tracheostomy Status post tracheostomy and PEG tube placement Sepsis secondary to UTI and COVID-19 pneumonia, resolved with treatment Paroxysmal atrial fibrillation on anticoagulation with Eliquis. Breakthrough seizure, history of previous seizures Unstageable sacral pressure ulcer Cardiomyopathy, EF of 30-35% Acute kidney injury, improved with treatment History of coronary artery disease history of pulmonary embolism History 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 left foot drop Status post permanent pacemaker History of glaucoma but surgical intervention Full code Plan: She continues to require tracheostomy, has been weaned to 40% FiO2 with T piece, continue following pulmonary recommendations Psychiatry found patient has the cognitive ability to make own medical decisions Continue tube feedings, following dietitian recommendations Continue current medication regimen Continue monitoring her mental status for any changes Continue Wound care for unstageable sacral pressure wound Discharge to subacute rehab , waiting for accepting facility Further recommendations to come based on patient's clinical course Time with Patient: Greater than 30
[2021-10-26] MEDS: HYDROcodone/APAP 15 ML SOLUTION PO PRN ×2 (02:08→15:33)
[2021-10-26] MEDS: carBAMazepine 200 MG TAB PO SCH ×3 (09:18→21:58)
[2021-10-26] MEDS: QUEtiapine 50 MG TAB PO SCH ×2 (09:19→21:57)
[2021-10-26] MEDS: METOPROLOL TARTRATE 25 MG TAB PO SCH ×2 (09:19→21:58)
[2021-10-26] MEDS: APIXABAN 5 MG TAB PO SCH ×2 (09:19→21:58)
[2021-10-26] MEDS: AMIODARONE 200 MG TAB PO SCH (09:19)
[2021-10-26] MEDS: CHOLECALCIFEROL 125 MCG (5000 IU) TABLET PO SCH (09:19)
[2021-10-26] MEDS: PANTOPRAZOLE 40 MG/10 ML VIAL IV SCH (09:19)
[2021-10-26 10:12] LABS: African American GFR (CKD) 140.8 (60.0-200.0); BUN/Creat Ratio 77.5 Ratio (12.00-20.00); Calcium 9.2 mg/dL (8.7-10.3); Non-African American GFR(CKD) 121.4 (60.0-200.0); Potassium 4.1 mmol/L (3.5-5.5)
--- NOTE | 2021-10-26 12:00 | P.CONS ---
History of Present Illness - Chief Complaint Medical debility - History of Present Illness I had the opportunity to see patient for inpatient rehab consultation with regard to medical debility. Patient admitted to [facility] September 10 with mental status change to Dr. Karen Auguste. Workup positive for Covid pneumonia. Seen by neurology, Dr. Chua. Seen by Drs. Dr. Barone and Dr. De Dios for the Covid pneum onia. Seen by surgery, Dr. Lopez, who did place trach and PEG. Trach now removed. Seen by psychiatry who notes encephalopathy but does not meet inpatient admission criteria. Previous functional history as elicited from patient: 51-year-old right-handed white female single lives and 2 floor home with father. Seen on disability and suffered stroke several years ago with some left hemiparesthesias. This however is worsened with current admission, per patient. Patient describes previously independent with cooking, laundry, driving, standing shower and gait without device. Patient has 4 children, oldest or 2 daughters ages 20 and 22. All are busy with her own lives. Father is 70 years old and would be unable to assist patient as well. Review of Systems Review of systems: Skin: Apparently of breakdown and soreness and bottom. ENT: Denies sneezes or discharge. Eyes: Denies discharge or photophobia. Cardiac: Denies chest pain or palpitation. Pulmonary: Denies cough or shortness of breath. Breast: Denies discharge or lumps. Gastrointestinal: Denies nausea, emesis, constipation, diarrhea. Genitourinary: Denies discharge or frequency. Musculoskeletal: Denies muscle or bone aches. Neurologic: Generalized weakness. Left hemiplegia including left hand and strong flexion. Endocrine: Denies shakes or sweats. Oncology: Denies cancers. Dermatologic: Denies rash, itching, pruritus. ALLERGY/immunology: Denies sneezes, rashes. Past Medical History Past Medical History: Coronary Artery Disease (CAD), Heart Failure, CVA/TIA, Eye Disorder, Pneumonia, Pulmonary Embolus (PE), Seizure Disorder, Skin Disorder Additional Past Medical History / Comment(s): Last seizure 2009, CVA 2007 with L sided weakness arm and leg and has L foot drop, TIA 2019, cardiomyopathy, R PE and pneumothorax/pneumonia following leg fracture in 1994, gestational diabetes with all pregnancies (4), bilateral glaucoma with surgery, psoriasis in the past, UTIs. History of Any Multi-Drug Resistant Organisms: None Reported Past Surgical History: Pacemaker Additional Past Surgical History / Comment(s): Bilateral eye surgery for glaucoma Past Anesthesia/Blood Transfusion Reactions: No Reported Reaction Type of Cardiac Device: Permanent Pacemaker Device Placement Date:: 2012 Past Psychological History: Anxiety, Depression Smoking Status: Current every day smoker Past Alcohol Use History: Occasional Past Drug Use History: None Reported - Past Family History Father Family Medical History: Coronary Artery Disease (CAD), Myocardial Infarction (LA) Additional Family Medical History / Comment(s): Father is 75 yrs old. He had a silent LA. Mother Additional Family Medical History / Comment(s): Mother is at 32 yrs d/t cardiomyopathy Medications and Allergies Home Medications Medication Instructions Recorded Confirmed Type Atorvastatin Calcium [Lipitor] 80 mg PO HS 03/08/14 09/10/21 History levETIRAcetam [Keppra] 1,500 mg PO BID 03/22/17 09/10/21 History Amiodarone [Cordarone] 200 mg PO DAILY 02/22/20 09/10/21 History carBAMazepine [TEGretol] 200 mg PO TID 02/22/20 09/10/21 History Apixaban [Eliquis] 5 mg PO BID 07/21/21 09/10/21 History Cholecalciferol [Vitamin D3 (125 125 mcg PO DAILY #30 tablet 07/22/21 09/10/21 Rx Mcg = 5000 Iu)] ALPRAZolam [Xanax] 0.5 mg PO TID PRN #3 tab 10/21/21 Rx Artificial Tears-Hypromellose 1 drops BOTH EYES QID PRN #10 ml 10/21/21 Rx [Artificial Tear Drops] Metoprolol Tartrate [Lopressor] 25 mg PO BID #2 tab 10/21/21 Rx QUEtiapine [SEROquel] 50 mg PO BID #1 tab 10/21/21 Rx Allergies Allergy/AdvReac Type Severity Reaction Status Date / Time cephalexin monohydrate Allergy Rash/Hives Verified 09/10/21 11:26 [From Keflex] Penicillins Allergy Anaphylaxis Verified 09/10/21 11:26 Physical Exam Vitals: Vital Signs Temp Pulse Pulse Pulse Pulse Resp BP 10/26/21 11:11 98.0 F 81 18 117/76 10/26/21 08:50 85 90 78 87 16 10/26/21 05:00 98.0 F 78 16 116/73 10/25/21 19:59 98.5 F 85 16 10/25/21 14:40 98.0 F 78 20 104/61 BP Pulse Ox 10/26/21 11:11 100 10/26/21 08:50 10/26/21 05:00 100 10/25/21 19:59 109/71 99 10/25/21 14:40 99 Intake and Output 10/25/21 10/26/21 10/26/21 22:59 06:59 14:59 Intake Total 720 Output Total 2 Balance 718 Intake: Tube Feeding 720 Output: Stool 2 Other: Voiding Method Bedpan Bedpan Diaper Diaper # Voids 1 2 1 Weight 53.9 kg Skin: Good color, texture, turgor. General: Thin build and comfortable appearance. Head: Normocephalic, atraumatic. Eyes: Symmetric. Pupils equal round. Ears: Symmetric. Hearing within normal limits. Mouth: Clear. Neck: Supple. Carotid without bruit. Cardiac: Regular rate and rhythm. Lungs: Clear anteriorly and posteriorly. Abdomen: Soft active nontender. Extremities: Normal tone. Hand 100% fist. Neurological: Mental status: Alert, cooperative, pleasant. Cranial nerves: Symmetric facial tone and trapezius. Motor: Normal strength and isolation right side. Left side poor and left hand in 100% fist. Sensation: Intact throughout. DTRs: Symmetric and equal throughout. Mobility: Requires physical assist for bed mobility. Results CBC & Chem 7: 10/25/21 06:22 10/26/21 05:57 Labs: Abnormal Lab Results - Last 24 Hours (Table) 10/25/21 10/26/21 Range/Units 11:53 05:57 BUN 31.0 H (9.0-27.0) mg/dL Creatinine 0.4 L (0.6-1.5) mg/dL BUN/Creatinine Ratio 77.50 H (12.00-20.00) Ratio POC Glucose (mg/dL) 132 H (75-99) mg/dL Assessment and Plan (1) ESTUARDO (acute kidney injury) Current Visit: Yes Status: Acute Code(s): N17.9 - ACUTE KIDNEY FAILURE, UNSPECIFIED SNOMED Code(s): 73836214 (2) Altered mental status Current Visit: Yes Status: Acute Code(s): R41.82 - ALTERED MENTAL STATUS, UNSPECIFIED SNOMED Code(s): 742559095 (3) Atrial fibrillation Current Visit: Yes Status: Acute Code(s): I48.91 - UNSPECIFIED ATRIAL FIBRILLATION SNOMED Code(s): 61058948 (4) COVID-19 Current Visit: Yes Status: Acute Code(s): U07.1 - COVID-19 SNOMED Code(s): 649307995 Plan: Comments and plan: Patient admitted with mental status change related to Covid positive pneumonia with complication encephalopathy. History of previous stroke but now has left hemiplegia with patient reports in fact is new. She is also concerned about breakdown in left hand related to fingernails. Other medical problems as well including dehydration, UTI, etc. At this time therapies ongoing inpatient currently occurs two-person assist and his difficulty participating and benefiting from therapy out of bed. At this time does not appear to have endurance enough for full inpatient rehab. Also the question about any discharge or return to home and any possible supports as patient reports no relatives are able to help her. Thus would recommend SNF placement 24 7 care multiple persons
--- NOTE | 2021-10-26 14:12 | P.PN ---
<Donna Mojica M - Last Filed: 10/26/21 14:03> Subjective Progress Note Date: 10/26/21 Principal diagnosis: COVID-19 pneumonia On 10/26/2021 patient seen in follow-up on medical surgical floor, she is awake and alert, oriented 3, breathing comfortably, yesterday she was successfully decannulated, her former tracheostomy insertion site is covered with the dry dressing, clean dry and intact, she is breathing comfortably, she is speaking without any issues, she is oriented 3. She remains on PEG tube feedings for now. She has not had her swallow evaluation yet. Overnight she has had no acute issues, no recent chest x-ray. Patient is currently on 4 L of oxygen per nasal cannula and her pulse ox the 100%, no fever or chills. Patient has completed the steroids for COVID-19 pneumonia. She currently remains on Eliquis 5 mg twice daily, she remains on amiodarone 200 mg twice daily, she remains on Seroquel 50 mg twice daily, she is on Tegretol and Keppra. No acute events overnight. Patient has been participating with physical therapy, and patient has been eager to progress. Patient was evaluated by Dr. Swift and at this time her endurance was insufficient for for inpatient rehab. Objective - Vital Signs Vital signs: Vital Signs Temp 98.0 F 10/26/21 11:11 Pulse 81 10/26/21 11:11 Resp 18 10/26/21 11:11 BP 117/76 10/26/21 11:11 Pulse Ox 100 10/26/21 11:11 Intake & Output 10/25/21 10/26/21 10/26/21 18:59 06:59 18:59 Intake Total 720 Output Total 2 Balance 718 Weight 53.9 kg Intake: Tube Feeding 720 Output: Stool 2 Other: Voiding Method Bedpan Bedpan Diaper Diaper # Voids 1 2 1 ABP, PAP, CO, CI - Last Documented Arterial Blood Pressure 123/58 - Exam GENERAL EXAM: Alert, very pleasant, 51-year-old on 4 L of oxygen pulse ox 100%, comfortable in no apparent distress. HEAD: Normocephalic/atraumatic. EYES: Normal reaction of pupils, equal size. Conjunctiva pink, sclera white. NOSE: Clear with pink turbinates. THROAT: No erythema or exudates. NECK: No masses, no JVD, no thyroid enlargement, no adenopathy. Midline former tracheostomy site is covered with a dressing, patient was decannulated on 10/25/2021 CHEST: No chest wall deformity. Symmetrical expansion. LUNGS: Equal air entry with no crackles, wheeze, rhonchi or dullness. CVS: Regular rate and rhythm, normal S1 and S2, no gallops, no murmurs, no rubs ABDOMEN: Soft, nontender. No hepatosplenomegaly, normal bowel sounds, no guar ding or rigidity. PEG tube site is clean dry and intact, she is being fed by tube feedings, tolerating them well. EXTREMITIES: No clubbing, no edema, no cyanosis, 2+ pulses and upper and lower extremities. Chronic contracture of the left upper hand related to previous history of CVA MUSCULOSKELETAL: Muscle strength and tone normal. SPINE: No scoliosis or deformity SKIN: No rashes CENTRAL NERVOUS SYSTEM: Alert and oriented -3. No focal deficits, tone is normal in all 4 extremities. PSYCHIATRIC: Alert and oriented -3. Appropriate affect. Intact judgment and insight. - Labs CBC & Chem 7: 10/25/21 06:22 10/26/21 05:57 Labs: Abnormal Lab Results - Last 24 Hours (Table) 10/26/21 Range/Units 05:57 BUN 31.0 H (9.0-27.0) mg/dL Creatinine 0.4 L (0.6-1.5) mg/dL BUN/Creatinine Ratio 77.50 H (12.00-20.00) Ratio Assessment and Plan Plan: #1. Acute hypoxic respiratory failure secondary to COVID-19 pneumonia, intubated on 09/11/2021, status post tracheostomy and PEG tube placement on 09/23/2021, presently on T peice at 40%. The respiratory secretions are minimal for now. The patient is doing well. She has good cough and mechanism and good ability to do pulmonary toileting and patient was decannulated on 10/25/2021. #2. Altered mental status, acute toxic metabolic encephalopathy. No acute CVA noted on brain CT. Significantly improved. The patient's mental status is back to its baseline. #3. Acute COVID-19 pneumonia, resolved. #4. History of seizure activity. Under control. The patient remains on Keppra 1.5 g twice a day #5. Previous history of pulmonary embolism, on long-term treatment with Eliquis. No signs of any bleeding. #6. Paroxysmal atrial fibrillation, anticoagulated with Eliquis #7. Cardiomyopathy and LV dysfunction with ejection fraction of 30-35%. #8. History of pacemaker implantation. #9. 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 Hypothyroidism #11. Coronary artery disease #12. History of CVA in 2007 #13. History of psoriasis #14. Sacral /coccygeal decubitus ulcer, unstageable. Plan: Patient is doing good since decannulation She is maintaining stable O2 saturations on nasal cannula at 4 L Encourage deep breathing and coughing We'll proceed with swallow evaluation If passes swallow evaluation we'll discontinue the PEG tube Patient was evaluated for possibility of inpatient rehab placement however at this time her endurance isn't sufficient Will likely be placed in subacute rehab Stable for discharge once those arrangements are completed I performed a history & physical examination of the patient and discussed their management with my nurse practitioner, Donna Mojica. I reviewed the nurse practitioner's note and agree with the documented findings and plan of care. Lung sounds are positive for diffuse dim breath sounds throughout the lung shetty. The findings and the impression was discussed with the patient. I attest to the documentation by the nurse practitioner. I have personally seen and examined the patient, performed the documentation and the assessment and plan as written. Number of minutes spent on the visit: [10] Time with Patient: Less than 30 <Fernando Oviedo - Last Filed: 10/26/21 14:19> Objective - Vital Signs Vital signs: Vital Signs Temp 98.0 F 10/26/21 11:11 Pulse 81 10/26/21 11:11 Resp 18 10/26/21 11:11 BP 117/76 10/26/21 11:11 Pulse Ox 100 10/26/21 11:11 Intake & Output 10/25/21 10/26/21 10/26/21 18:59 06:59 18:59 Intake Total 720 Output Total 2 Balance 718 Weight 53.9 kg Intake: Tube Feeding 720 Output: Stool 2 Other: Voiding Method Bedpan Bedpan Diaper Diaper # Voids 1 2 1 ABP, PAP, CO, CI - Last Documented Arterial Blood Pressure 123/58 - Labs CBC & Chem 7: 10/25/21 06:22 10/26/21 05:57 Labs: Abnormal Lab Results - Last 24 Hours (Table) 10/26/21 Range/Units 05:57 BUN 31.0 H (9.0-27.0) mg/dL Creatinine 0.4 L (0.6-1.5) mg/dL BUN/Creatinine Ratio 77.50 H (12.00-20.00) Ratio Assessment and Plan Plan: This is a joint evaluation that was done along with a nurse practitioner. This evaluation was done in more than 20 minutes. In summary, the patient is doing well. I decannulated the patient remove the tracheostomy tube which she was able to tolerate without any major difficulties. My plan is to do a full evaluation today and make sure that the patient is able to swallow from that point and be able to gradually wean off the enteral feeding. There is a joint evaluation. I was involved in decision making and I further tested information mentioned above by the nurse practitioner.
[2021-10-26] MEDS: SODIUM CHLORIDE 0.9% 1,000 ML IV SCH (15:34)
[2021-10-26] MEDS: ALPRAZolam 0.5 MG TAB PO PRN (15:35)
--- NOTE | 2021-10-26 21:58 | P.PN ---
Subjective Progress Note Date: 10/26/21 This is a pleasant 51 years old female with past medical history of Coronary Artery Disease, Heart Failure, CVA/TIA, Pulmonary Embolus (PE), Seizure Disorder, Last seizure 2009, CVA 2007 with L sided weakness arm and leg and has L foot drop, TIA 2018, cardiomyopathy, R PE and pneumothorax/pneumonia following leg fracture in 1994, gestational diabetes with all pregnancies , bilateral glaucoma with surgery, psoriasis in the past, UTIs. She is a status post Pacemaker, history of Bilateral eye surgery for glaucoma, Anxiety, Depression, Current every day smoker Patient presents because of altered mental status. Information was limited from the patient. It was obtained from the chart and medical staff. Also as per family patient was able to go to the bathroom, was more lethargic and tired over the last day. While in the emergency room focal mild seizure is noticed On admission patient had and fever of 101. She is tachypneic at 26-40, tachycardic 110-140, also she is hypoxic saturating 72% on room air Labs showing WBC of 10.5, hemoglobin of 16.3, platelet count of 197. INR 1.7. Sodium 164, creatinine 1.7, lactic acid elevated 4.6. Liver enzymes elevated with AST 202 and ALT 81. Bilirubin is normal at 1.3. Urine analysis is highly suspicious of infection Urine drug screen is negative Cash versus positive Chest x-ray showing left perihilar and left lower lobe area of infiltrate and small effusion correlates for pneumonia CT of the brain without contrast showing no intracranial hemorrhage, evidence of remote ischemic change. However there is vague low attenuation near the left thalamus and left cerebral peduncle. Acute ischemia in the differential diagnosis. Recommend stat MRI of brain with MRSA [place] [facility] [place] as clinically warranted. In the emergency room patient was started on aztreonam and IV vancomycin, Keppra and heparin drip 10/24/2021 Patient is currently sitting in a chair comfortable. Patient is trach collar requirement 40% FiO2. Awake alert and oriented x3. Patient is also emotional. Denies any complaints of chest pain or worsening shortness of breath. No nausea vomiting abdominal pain or diarrhea. Tolerating tube feeding. Laboratory data showed sodium 142 potassium 4.1 chloride 103 BUN 30.8 and creatinine 0.4 blood sugar is 127. Albumin 3.5 Pulmonary is on board. Plan to place on speaking valve. Patient is being current Eliquis and a Medrol due to history of paroxysmal atrial fibrillation also antiepileptic medications. Heart rate is controlled. 10/25/2021 Patient is currently resting in bed. Awake and alert and less anxious today. Breathing status is stable. Tracheostomy is in place. Patient is tolerating tube feedings. Patient has been afebrile. No complaints of chest pain or worsening shortness of breath. No nausea vomiting abdominal pain or diarrhea. Pain is better controlled. Laboratory showed WBC 8.4 hemoglobin 8.0 and platelets 374 BUN 30.9 and creatinine 0.4 Patient is being continued apixaban and also amiodarone. Dexamethasone has been tapered off . patient is on Keppra. 10/26/2021 Patient is seen and evaluated this morning and is being closely monitored. Tracheostomy has been removed with pulmonary following. Patient is able to speak and denies any shortness of breath. Patient is on 4L via [place]. Patient is currently receiving tube feedings and tolerating and is scheduled for swallow evaluation today. Patient with continued weakness from prolonged hospitalization and will require rehab for continued PT/OT therapy and inpatient rehab being considered as well. Dr Valadez consulted. Patient denies chest pain or shortness of breath. Patient is afebrile. Review of systems: Constitutional: reports of fatigue, no reports of fever, or chills Cardiovascular: No reports of chest pain or palpitations Respiratory: No reports of worsening shortness of breath , reports occasional cough GI: No reports of nausea, no reports of of vomiting : No reports of dysuria or retention Neurovascular: reports of generalized weakness All medications have been reviewed Active Medications Acetaminophen (Acetaminophen Tab 325 Mg Tab) 650 mg PO Q6HR PRN PRN Reason: Fever and/ or Pain Last Admin: 10/25/21 13:54 Dose: 650 mg Documented by: Hydrocodone Bitart/Acetaminophen (Hydrocodone/Apap 15 Ml Solution) 15 ml PO Q8HR PRN PRN Reason: Pain Last Admin: 10/26/21 15:33 Dose: 15 ml Documented by: Alprazolam (Alprazolam 0.5 Mg Tab) 0.5 mg PO TID PRN PRN Reason: Anxiety Last Admin: 10/26/21 15:35 Dose: 0.5 mg Documented by: Amiodarone HCl (Amiodarone 200 Mg Tab) 200 mg PO DAILY [facility] Last Admin: 10/26/21 09:19 Dose: 200 mg Documented by: Apixaban (Apixaban 5 Mg Tab) 5 mg PO BID [facility]; Protocol Last Admin: 10/26/21 09:19 Dose: 5 mg Documented by: Artificial Tears (Artificial Tears-Hypromellose Drops 15 Ml Btl) 1 drops BOTH EYES QID PRN PRN Reason: Dry Eye(s) Last Admin: 09/16/21 08:58 Dose: 1 drops Documented by: Bisacodyl (Bisacodyl 10 Mg Supp) 10 mg RECTAL DAILY PRN PRN Reason: Constipation Stop: 10/31/21 08:04 Carbamazepine (Carbamazepine 200 Mg Tab) 200 mg PO TID [facility] Last Admin: 10/26/21 15:34 Dose: 200 mg Documented by: Cholecalciferol (Cholecalciferol 125 Mcg (5000 Iu) Tablet) 125 mcg PO DAILY [facility] Last Admin: 10/26/21 09:19 Dose: 125 mcg Documented by: Sodium Chloride (Saline 0.9%) 1,000 mls @ 20 mls/hr IV .Q24H [facility] Last Admin: 10/26/21 15:34 Dose: Not Given Documented by: Levetiracetam (Levetiracetam 750 Mg Tab) 1,500 mg PO Q12HR [facility] Last Admin: 10/26/21 09:18 Dose: 1,500 mg Documented by: Magnesium Hydroxide (Magnesium Hydroxide 2,400 Mg/10 Ml Cup) 2,400 mg PEG/G- TUBE DAILY PRN PRN Reason: Constipation Metoprolol Tartrate (Metoprolol Tartrate 25 Mg Tab) 25 mg PO BID [facility] Last Admin: 10/26/21 09:19 Dose: 25 mg Documented by: Miscellaneous Information (Potassium Replacement Protocol 1 Each Misc) 1 each MISCELLANE DAILY PRN; Protocol PRN Reason: Per Protocol Miscellaneous Information (Magnesium Replacement Protocol 1 Each Misc) 1 each MISCELLANE DAILY PRN; Protocol PRN Reason: Per Protocol Miscellaneous Information (Potassium Replacement Protocol 1 Each Misc) 1 each MISCELLANE DAILY PRN; Protocol PRN Reason: Per Protocol Naloxone HCl (Naloxone 0.4 Mg/Ml 1 Ml Vial) 0.2 mg IV Q2M PRN PRN Reason: Opioid Reversal Pantoprazole Sodium (Pantoprazole 40 Mg/10 Ml Vial) 40 mg IV DAILY [facility] Last Admin: 10/26/21 09:19 Dose: 40 mg Documented by: Quetiapine Fumarate (Quetiapine 50 Mg Tab) 50 mg PO BID [facility] Last Admin: 10/26/21 09:19 Dose: 50 mg Documented by: PHYSICAL EXAMINATION: GENERAL: The patient is alert and oriented x3, thin built, frail, cachetic HEENT: Pupils are round and equally reacting to light. EOMI. no scleral icterus. No conjunctival pallor. Normocephalic, atraumatic. No pharyngeal erythema. No thyromegaly. CARDIOVASCULAR: S1 and S2 muffled PULMONARY: diminished breath sounds bilaterally with some mild scattered rhonchi noted. ABDOMEN: soft. non-tender on exam. thin. non-distended, normoactive bowel sounds. No palpable organomegaly. peg tube noted MUSCULOSKELETAL: No joint swelling or deformity. EXTREMITIES: No cyanosis, clubbing, or pedal edema. NEUROLOGICAL: residual left side deficits from previous stroke. diffuse weakness SKIN: No rashes. no lesions noted Assessment: Altered mental status secondary to metabolic encephalopathy, ruled out intercranial lesions, improved Acute hypoxic respiratory failure secondary to COVID-19 pneumonia, with Prolonged hospital course. s/p tracheostomy and removal of trach on 10/25 Status post tracheostomy and PEG tube placement Sepsis secondary to UTI and COVID-19 pneumonia, resolved with treatment Paroxysmal atrial fibrillation on anticoagulation with Eliquis. Breakthrough seizure, history of previous seizures Unstageable sacral pressure ulcer Cardiomyopathy, EF of 30-35% Acute kidney injury, improved with treatment History of coronary artery disease history of pulmonary embolism History 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 left foot drop Status post permanent pacemaker History of glaucoma but surgical intervention Full code Plan: She has had her trach removed and dressing over the ostomy, currently on 4L via [place], continue following pulmonary recommendations Psychiatry found patient has the cognitive ability to make own medical decisions, patient is alert and oriented Continue tube feedings, following dietitian recommendations, speech therapy ordered for swallow evaluation and possible diet Continue current medication regimen Continue monitoring her mental status for any changes, currently alert and oriented Continue Wound care for unstageable sacral pressure wound Discharge to subacute rehab , waiting for accepting facility and insurance authorization with social work following, Dr. Valadez from [facility] inpatient rehab consulted and pending Further recommendations to come based on patient's clinical course Objective - Vital Signs Vital signs: Vital Signs Temp 98.0 F 10/26/21 05:00 Pulse 78 10/26/21 05:00 Resp 16 10/26/21 05:00 BP 116/73 10/26/21 05:00 Pulse Ox 100 10/26/21 05:00 Intake & Output 10/25/21 10/26/21 10/26/21 18:59 06:59 18:59 Other: Voiding Method Bedpan Diaper # Voids 1 2 1 ABP, PAP, CO, CI - Last Documented Arterial Blood Pressure 123/58 - Labs CBC & Chem 7: 10/25/21 06:22 10/26/21 05:57 Labs: Abnormal Lab Results - Last 24 Hours (Table) 10/25/21 Range/Units 11:53 POC Glucose (mg/dL) 132 H (75-99) mg/dL
[2021-10-27] MEDS: QUEtiapine 50 MG TAB PO SCH ×2 (08:44→20:54)
[2021-10-27] MEDS: APIXABAN 5 MG TAB PO SCH ×2 (08:44→20:54)
[2021-10-27] MEDS: METOPROLOL TARTRATE 25 MG TAB PO SCH ×2 (08:44→20:54)
[2021-10-27] MEDS: PANTOPRAZOLE 40 MG/10 ML VIAL IV SCH (08:45)
[2021-10-27] MEDS: CHOLECALCIFEROL 125 MCG (5000 IU) TABLET PO SCH (08:45)
[2021-10-27] MEDS: carBAMazepine 200 MG TAB PO SCH ×3 (08:45→20:54)
[2021-10-27] MEDS: AMIODARONE 200 MG TAB PO SCH (08:45)
[2021-10-27] MEDS: ALPRAZolam 0.5 MG TAB PO PRN ×2 (09:08→20:54)
--- NOTE | 2021-10-27 11:13 | P.PN ---
<Donna Mojica M - Last Filed: 10/27/21 10:56> Subjective Progress Note Date: 10/27/21 Principal diagnosis: COVID-19 pneumonia On 10/26/2021 patient seen in follow-up on medical surgical floor, she is awake and alert, oriented 3, breathing comfortably, yesterday she was successfully decannulated, her former tracheostomy insertion site is covered with the dry dressing, clean dry and intact, she is breathing comfortably, she is speaking without any issues, she is oriented 3. She remains on PEG tube feedings for now. She has not had her swallow evaluation yet. Overnight she has had no acute issues, no recent chest x-ray. Patient is currently on 4 L of oxygen per nasal cannula and her pulse ox the 100%, no fever or chills. Patient has completed the steroids for COVID-19 pneumonia. She currently remains on Eliquis 5 mg twice daily, she remains on amiodarone 200 mg twice daily, she remains on Seroquel 50 mg twice daily, she is on Tegretol and Keppra. No acute events overnight. Patient has been participating with physical therapy, and patient has been eager to progress. Patient was evaluated by Dr. Swift and at this time her endurance was insufficient for for inpatient rehab. On 10/27/2021 patient seen in follow-up on medical surgical floor. Patient was decannulated 2 days ago, she continues to tolerate decannulation quite well so far. Currently patient is on 2 L of oxygen pulse ox is 98%, breathing comfortably, afebrile, hemodynamically she stable, she has no specific complaints other than discomfort on her coccyx area and patient does have a breakdown stage II on her coccyx, which has been covered with dry protective dressing. Yesterday patient passed a swallow evaluation, she has been started on a diet which was advanced yesterday, today she is on the regular diet, her appetite is improving, she stated that she had her first Pepsi today in quite a while. Breathing quite comfortably. Patient has a PEG tube still in place, and she continues on tube feedings, the dietitian is do not calorie count to see if patient is meeting her nutritional needs at this time with oral feedings. If patient is meeting her nutritional needs her PEG tube can be discontinued from our standpoint. No new labs today. Her Ambrocio has been discontinued, and patient is incontinent of urine, which will have to be monitored and breakdown on her coccyx will have to be protected and dressing changed. Patient has completed her steroids, she remains on multivitamins, she remains on amiodarone and Eliquis, she remains on metoprolol, Keppra, Seroquel. No new chest x-ray today Objective - Vital Signs Vital signs: Vital Signs Temp 98.4 F 10/27/21 04:18 Pulse 90 10/27/21 08:52 Resp 18 10/27/21 04:18 BP 122/75 10/27/21 08:52 Pulse Ox 98 10/27/21 08:56 Intake & Output 10/26/21 10/27/21 10/27/21 18:59 06:59 18:59 Intake Total 1580 720 Output Total 602 Balance 978 720 Weight 53.9 kg Intake: Oral 260 Tube Feeding 1320 720 Output: Urine 600 Stool 2 Other: Voiding Method Bedpan Bedpan Diaper Diaper # Voids 1 3 ABP, PAP, CO, CI - Last Documented Arterial Blood Pressure 123/58 - Exam GENERAL EXAM: Alert, very pleasant, 51-year-old on 2 L of oxygen pulse ox 98%, comfortable in no apparent distress. HEAD: Normocephalic/atraumatic. EYES: Normal reaction of pupils, equal size. Conjunctiva pink, sclera white. NOSE: Clear with pink turbinates. THROAT: No erythema or exudates. NECK: No masses, no JVD, no thyroid enlargement, no adenopathy. Midline former tracheostomy site is covered with a dressing, patient was decannulated on 10/25/2021 CHEST: No chest wall deformity. Symmetrical expansion. LUNGS: Equal air entry with no crackles, wheeze, rhonchi or dullness. CVS: Regular rate and rhythm, normal S1 and S2, no gallops, no murmurs, no rubs ABDOMEN: Soft, nontender. No hepatosplenomegaly, normal bowel sounds, no guarding or rigidity. PEG tube site is clean dry and intact, she is being fed by tube feedings, tolerating them well. EXTREMITIES: No clubbing, no edema, no cyanosis, 2+ pulses and upper and lower extremities. Chronic contracture of the left upper hand related to previous history of CVA MUSCULOSKELETAL: Muscle strength and tone normal. SPINE: No scoliosis or deformity SKIN: No rashes, unstageable sacral decubitus ulcer CENTRAL NERVOUS SYSTEM: Alert and oriented -3. No focal deficits, tone is normal in all 4 extremities. PSYCHIATRIC: Alert and oriented -3. Appropriate affect. Intact judgment and insight. - Labs CBC & Chem 7: 10/25/21 06:22 10/26/21 05:57 Assessment and Plan Plan: #1. Acute hypoxic respiratory failure secondary to COVID-19 pneumonia, intubated on 09/11/2021, status post tracheostomy and PEG tube placement on 09/23/2021, presently on T peice at 40%. The respiratory secretions are minimal for now. The patient is doing well. She has good cough and mechanism and good ability to do pulmonary toileting and patient was decannulated on 10/25/2021. #2. Altered mental status, acute toxic metabolic encephalopathy. No acute CVA noted on brain CT. Significantly improved. The patient's mental status is back to its baseline. #3. Acute COVID-19 pneumonia, resolved. #4. History of seizure activity. Under control. The patient remains on Keppra 1.5 g twice a day #5. Previous history of pulmonary embolism, on long-term treatment with Eliquis. No signs of any bleeding. #6. Paroxysmal atrial fibrillation, anticoagulated with Eliquis #7. Cardiomyopathy and LV dysfunction with ejection fraction of 30-35%. #8. History of pacemaker implantation. #9. 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 Hypothyroidism #11. Coronary artery disease #12. History of CVA in 2007 #13. History of psoriasis #14. Sacral /coccygeal decubitus ulcer, unstageable. Plan: Patient has been tolerating decannulation quite well so far Breathing comfortably Patient has passed her swallow evaluation and she is tolerating oral diet If she is meeting her nutritional needs with oral intake, we recommend discontinuing tube feedings and discontinuing PEG tube Social work and discharge planning following in regards to [facility] Wound care per wound care service Stable for discharge once those arrangements are completed I performed a history & physical examination of the patient and discussed their management with my nurse practitioner, Donna Mojica. I reviewed the nurse practitioner's note and agree with the documented findings and plan of care. Lung sounds are positive for diffuse dim breath sounds throughout the lung shetty. The findings and the impression was discussed with the patient. I attest to the documentation by the nurse practitioner. I have personally seen and examined the patient, performed the documentation and the assessment and plan as written. Number of minutes spent on the visit: [10] Time with Patient: Less than 30 <Fernando Oviedo - Last Filed: 10/27/21 18:11> Objective - Vital Signs Vital signs: Vital Signs Temp 97.6 F 10/27/21 11:47 Pulse 87 10/27/21 11:47 Resp 17 10/27/21 11:47 BP 104/70 10/27/21 11:47 Pulse Ox 96 10/27/21 15:43 Intake & Output 10/26/21 10/27/21 10/27/21 18:59 06:59 18:59 Intake Total 1580 720 720 Output Total 602 Balance 978 720 720 Weight 53.9 kg 53.9 kg Intake: Oral 260 Tube Feeding 1320 720 720 Output: Urine 600 Stool 2 Other: Voiding Method Bedpan Bedpan Bedside Commode Diaper Diaper Bedpan Diaper # Voids 1 3 ABP, PAP, CO, CI - Last Documented Arterial Blood Pressure 123/58 - Labs CBC & Chem 7: 10/25/21 06:22 10/26/21 05:57 Assessment and Plan Plan: I have personally seen and examined the patient and reviewed the documentation. I performed a joint evaluation with the nurse practitioner in this evaluation was done more than 20 minutes. I fully agree with the documentation above and the plan of care.
--- NOTE | 2021-10-27 13:08 | P.PN ---
Subjective Progress Note Date: 10/27/21 Principal diagnosis: Altered mental status Patient is a 51-year-old female presented to the emergency room with altered mental status, COVID-19 pneumonia, UTI, seizures and possible stroke. UTI and pneumonia have been treated, and sepsis resolved. 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 Patient has been in the hospital since September 10, 2021 and has had extensive evaluations and treatment. Patient has been followed by multiple consultants including intensive care/pulmonary, neurology, and surgical services. Hospitalists have been providing coverage from 09/10/2021 through 10/05/2021. Patient continues to require mechanical ventilation. Patient is status post PEG tube placement and tracheotomy placement. 10/06/21 Patient was seen and examined at bedside in the ICU. Continues to require mechanical ventilation via tracheostomy. FiO2 40%, PEEP 5, oxygen saturation 96%, blood pressure 149/82. She is alert, responds to name, and follows simple commands. Denies any acute symptoms, unable to speak, replies by shaking her head yes or no. Left-sided paralysis, right-sided weakness able to grasp fingers and wiggle toes on the right. White blood cell count 5.6, kidney function improved the BUN 15, creatinine 0.3, liver enzymes continue to be elevated but improving. Plan was to discharge patient to [facility], insurance denied, awaiting clearance from social work. 10/07/21 Patient was seen and examined at bedside in ICU. Patient is resting comfortably, in no acute distress. Continues to require mechanical ventilation via tracheostomy. FiO2 40%, PEEP 5, oxygen saturation 95%, blood pressure 119/74. Patient is alert and oriented to self, able to follow simple commands. Continued left-sided paralysis, right-sided weakness. Potassium 3.3, was treated according to protocol. Kidney function remains stable, white count 7.1 today. Still waiting for insurance appeal for transfer to long-term acute care. 10/08/21 patient was seen and examined in ICU. Was up in the chair via rebecca lift, in mild distress. Oxygen saturation was declining to 70% while on trach collar. Patient was trying to say that she can't breathe and she needs help. Nurse and respiratory therapist assisted patient back on mechanical ventilation at prev ious settings, with improvement of oxygen saturation. Patient was alert and oriented to self.continued right-sided weakness and left-sided paralysis.potassium improved to 3.5.still awaiting insurance appeal for transfer to long-term acute care 10/09/2021 Patient was seen and examined at bedside in ICU. Resting comfortably in bed, in no acute distress. Alert and oriented to self. She was trying to say that she wants to go home. Continued right-sided weakness and left-sided paralysis. Continues to require mechanical ventilation via tracheostomy. FiO2 40% PEEP of 5. ABG was stable. Tolerating tube feeding via PEG tube. Awaiting insurance appeal for transfer to long-term acute care. Hospitalist coverage 10/10/21-10/12/21 10/13/2021 Patient seen and examined at bedside in ICU. Patient lethargic, not answering questions, arises to touch but then falls back asleep. Spoke with nurse re garding patient's status over the weekend, locomotive switch operator to try to decannulate the patient, became hypoxic and needed trach replaced. Today patient is on CPAP via tracheostomy, rate of 28, tidal volume 400, FiO2 40%, and PEEP of 8. We'll continue following pulmonary's recommendations. Blood Pressure was decreased on exam, already being treated with fluid bolus. Will follow locomotive switch operator recommendations for pressure control. Still waiting for insurance clearance for long-term acute care transfer. 10/14/21 Patient was seen and examined at bedside in ICU. Was resting in bed, no acute distress. Awoke to name and touch, oriented to self, followed simple commands. She was trying to verbalize that she wants to home. Continued right-sided weakness, left-sided paralysis. She was weaned to a t-piece at 50%, saturating well. Has been off the ventilator more than 24 hours. We will continue to follow pulmonary recommendations. 10/15/2021 Patient was seen and examined at bedside in ICU. Resting in bed in no acute distress. Alert and oriented to self, following simple commands. Continued right-sided weakness, left-sided paralysis. Has been maintaining oxygenation with T piece at 50%. Attempting to wean to trach collar. Patient still trying to verbalize that she wants to go home. Chest x-ray shows no changes from previous exam. We'll continue following locomotive switch operator recommendations. 10/16/2021 Patient was seen and examined at bedside. Patient is lethargic, responds to touch falls because sleep. Did not follow commands. Continues to have right- sided weakness left-sided paralysis. Continues to require T piece of 50%. Lab results reviewed, hemoglobin stable at 9.6, slight increase of BUN and creatinine at 32 and 0.44. Potassium and magnesium stable at 4.8 and 2.0. We 'll continue to monitor kidney function for any changes. Hospitalist coverage 10/17/21-10/19/21 10/20/2021 Patient was seen and examined at bedside. Patient is out of ICU on medical floor. Patient was agitated and upset, stating she wants to go home, that she has been here for over 3 days and needs to go home. She was told that she has been in the hospital for 40 days and she states it has only been three. Patient is agitated, stating she does not have insurance. Patient continues to have right-sided weakness and left-sided paralysis. Patient has been weaned down to trach collar 40% FiO2. Continues to require tube feeding. Plan was to discharge to subacute rehab, psych consult was ordered to evaluate patient's ability to make choices for herself because she wants to go home. 10/21/21 Patient was seen and evaluated at bedside. Patient was sitting up in the chair, continues to be agitated, stating she wants to go home. Patient is alert and oriented, psychiatry determine she is cognitively stable to make her own medical decisions. Social work is working on securing a subacute rehab that will accept her with her trach. pulmonary cleared her for discharge, awaiting site approval. 10/22/21 Patient seen and examined at bedside. Patient sitting up in bed, oriented and alert, in no acute distress. She states she is disabled and cannot afford to stay here, and becomes frustrated. Case was discussed with social sciences chair and personal lines account manager, awaiting for accepting facility. Patient continues to require T piece at 40% FiO2. Hemoglobin stable at 8.8. Kidney function at baseline BUN 34.5 creatinine 0.5. 10/23/21 Patient was seen and examined at bedside, she was sitting up in bed reading a magazine. Patient is frustrated with the length of time she has been in the hospital and wants to go to rehab so she can get back home. Multiple facilities have denied her case, still awaiting accepting facility. Continues to require Tpiece at 40% FiO2. Mentation has improved greatly, able to hold a conversation and jail memory is intact. She is medically ready for discharge as soon as a facility is located that will accept her. Hospitalist coverage 10/24/21-10/26/21 10/27/2021 Patient is 17 and examined at bedside. Patient was sitting up in chair. Patient is alert and oriented 3. Tracheostomy was removed and patient is tolerating oral intake well. Patient denies shortness of breath, chest pain, trouble swallowing, choking, or coughing with oral intake. We will begin dis continuing PEG tube feedings. Patient is currently on 2 L of oxygen via nasal cannula. Patient is able to have full conversation, short-term and long-term memory intact. Awaiting accepting facility for subacute rehab. Objective - Vital Signs Vital signs: Vital Signs Temp 97.6 F 10/27/21 11:47 Pulse 87 10/27/21 11:47 Resp 17 10/27/21 11:47 BP 104/70 10/27/21 11:47 Pulse Ox 97 10/27/21 12:00 Intake & Output 10/26/21 10/27/21 10/27/21 18:59 06:59 18:59 Intake Total 1580 720 Output Total 602 Balance 978 720 Weight 53.9 kg Intake: Oral 260 Tube Feeding 1320 720 Output: Urine 600 Stool 2 Other: Voiding Method Bedpan Bedpan Bedside Commode Diaper Diaper Bedpan Diaper # Voids 1 3 ABP, PAP, CO, CI - Last Documented Arterial Blood Pressure 123/58 - Constitutional General appearance: Present: thin - EENT Eyes: Present: EOMI, PERRLA ENT: Present: normal oropharynx Ears: bilateral: normal - Neck Details: trach was removed, bandage in place Neck: Present: normal ROM - Respiratory Respiratory: bilateral: CTA, diminished - Cardiovascular Heart rate: 70 Rhythm: regular Heart sounds: normal: S1, S2 - Peripheral pulses radial pulse Peripheral Pulses: bilateral: Normal - Gastrointestinal Gastrointestinal Comment(s): peg tube in place General gastrointestinal: Present: normal bowel sounds, soft - Integumentary Integumentary: Present: normal - Neurologic Neurologic: Present: focal deficits - Musculoskeletal Musculoskeletal: Present: right sided weakness, left sided weakness - Psychiatric Psychiatric: Present: A&O x's 3, appropriate affect - Allied health notes Allied health notes reviewed: nursing - Labs CBC & Chem 7: 10/25/21 06:22 10/26/21 05:57 Assessment and Plan Assessment: Altered mental status secondary to metabolic encephalopathy, ruled out intercranial lesions, resolved Acute hypoxic respiratory failure secondary to COVID-19 pneumonia, 2L oxygen via nasal cannula Status post tracheostomy, discontinued, and PEG tube placement Sepsis secondary to UTI and COVID-19 pneumonia, resolved with treatment Breakthrough seizure, history of previous seizures Unstageable sacral pressure ulcer Cardiomyopathy, EF of 30-35% Acute kidney injury, improved with treatment History of coronary artery disease history of pulmonary embolism History 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 left foot drop Status post permanent pacemaker History of glaucoma but surgical intervention Full code Plan: Tracheostomy was discontinued, currently on 2 L of oxygen via nasal cannula, continue following pulmonary recommendations Tolerating oral intake, will discontinue tube feedings, following dietitian recommendations Continue current medication regimen Continue monitoring her mental status for any changes Continue Wound care for unstageable sacral pressure wound Discharge to subacute rehab , waiting for accepting facility Further recommendations to come based on patient's clinical course Time with Patient: Greater than 30
[2021-10-27] MEDS: SODIUM CHLORIDE 0.9% 1,000 ML IV SCH (17:05)
[2021-10-28 04:46] VITALS: PULSE 85
--- NOTE | 2021-10-28 06:48 | P.PN ---
Progress Note - Text Therapy notes reviewed and patient still of poor endurance. Still requires 24/7 multiple persons, ie SNF.
[2021-10-28] MEDS: APIXABAN 5 MG TAB PO SCH (08:55)
[2021-10-28] MEDS: QUEtiapine 50 MG TAB PO SCH (08:55)
[2021-10-28] MEDS: METOPROLOL TARTRATE 25 MG TAB PO SCH (08:55)
[2021-10-28] MEDS: CHOLECALCIFEROL 125 MCG (5000 IU) TABLET PO SCH (08:55)
[2021-10-28] MEDS: PANTOPRAZOLE 40 MG/10 ML VIAL IV SCH (08:55)
[2021-10-28] MEDS: carBAMazepine 200 MG TAB PO SCH (08:56)
[2021-10-28] MEDS: AMIODARONE 200 MG TAB PO SCH (08:57)
[2021-10-28] MEDS: ALPRAZolam 0.5 MG TAB PO PRN (10:29)
--- NOTE | 2021-10-28 10:40 | P.PN ---
<Donna Mojica M - Last Filed: 10/28/21 10:36> Subjective Progress Note Date: 10/28/21 Principal diagnosis: COVID-19 pneumonia On 10/26/2021 patient seen in follow-up on medical surgical floor, she is awake and alert, oriented 3, breathing comfortably, yesterday she was successfully decannulated, her former tracheostomy insertion site is covered with the dry dressing, clean dry and intact, she is breathing comfortably, she is speaking without any issues, she is oriented 3. She remains on PEG tube feedings for now. She has not had her swallow evaluation yet. Overnight she has had no acute issues, no recent chest x-ray. Patient is currently on 4 L of oxygen per nasal cannula and her pulse ox the 100%, no fever or chills. Patient has completed the steroids for COVID-19 pneumonia. She currently remains on Eliquis 5 mg twice daily, she remains on amiodarone 200 mg twice daily, she remains on Seroquel 50 mg twice daily, she is on Tegretol and Keppra. No acute events overnight. Patient has been participating with physical therapy, and patient has been eager to progress. Patient was evaluated by Dr. Swift and at this time her endurance was insufficient for for inpatient rehab. On 10/27/2021 patient seen in follow-up on medical surgical floor. Patient was decannulated 2 days ago, she continues to tolerate decannulation quite well so far. Currently patient is on 2 L of oxygen pulse ox is 98%, breathing comfortably, afebrile, hemodynamically she stable, she has no specific complaints other than discomfort on her coccyx area and patient does have a breakdown stage II on her coccyx, which has been covered with dry protective dressing. Yesterday patient passed a swallow evaluation, she has been started on a diet which was advanced yesterday, today she is on the regular diet, her appetite is improving, she stated that she had her first Pepsi today in quite a while. Breathing quite comfortably. Patient has a PEG tube still in place, and she continues on tube feedings, the dietitian is do not calorie count to see if patient is meeting her nutritional needs at this time with oral feedings. If patient is meeting her nutritional needs her PEG tube can be discontinued from our standpoint. No new labs today. Her Ambrocio has been discontinued, and patient is incontinent of urine, which will have to be monitored and breakdown on her coccyx will have to be protected and dressing changed. Patient has completed her steroids, she remains on multivitamins, she remains on amiodarone and Eliquis, she remains on metoprolol, Keppra, Seroquel. No new chest x-ray today On 10/28/2021 patient seen in follow-up on medical surgical floor. She is breathing comfortably, room air pulse ox is 97%, and subsequently supplement oxygen has been removed, she is sitting up in the recliner, she was up with therapy today, and was able to walk in the room with 2 person assist and tolerated activity fairly well. Hemodynamically stable, she has been afebrile, vital signs have been stable, she is awake and alert she is oriented 3. No worsening dyspnea or cough. She has been working on the [employer] spirometer, she is able to achieve 500 mL on it. She passed swallow evaluation, she had a calorie count and patient is meeting her nutritional needs with her oral intake. Tube feedings have been stopped. PEG tube still remains in place and we will ask surgical services today to remove it. Today's lab 7 reviewed, electrolytes are within normal limits, BUN is 31, creatinine 0.4. Objective - Vital Signs Vital signs: Vital Signs Temp 98.7 F 10/28/21 04:44 Pulse 85 10/28/21 04:44 Resp 16 10/28/21 04:44 BP 131/83 10/28/21 04:44 Pulse Ox 97 10/28/21 04:44 Intake & Output 10/27/21 10/28/21 10/28/21 18:59 06:59 18:59 Intake Total 720 920 Output Total 2 Balance 720 918 Weight 53.9 kg 45 kg Intake: IV 0 Sodium Chloride 0.9% 1, 0 000 ml @ 20 mls/hr IV . Q24H [facility] Rx#:[id number] Tube Feeding 720 920 Output: Stool 2 Other: Voiding Method Bedside Commode Bedside Commode Bedpan Bedpan Diaper Diaper # Voids 5 # Bowel Movements 4 ABP, PAP, CO, CI - Last Documented Arterial Blood Pressure 123/58 - Exam GENERAL EXAM: Alert, very pleasant, 51-year-old on 2 L of oxygen pulse ox 98%, comfortable in no apparent distress. HEAD: Normocephalic/atraumatic. EYES: Normal reaction of pupils, equal size. Conjunctiva pink, sclera white. NOSE: Clear with pink turbinates. THROAT: No erythema or exudates. NECK: No masses, no JVD, no thyroid enlargement, no adenopathy. Midline former tracheostomy site is covered with a dressing, patient was decannulated on 10/25/2021 CHEST: No chest wall deformity. Symmetrical expansion. LUNGS: Equal air entry with no crackles, wheeze, rhonchi or dullness. CVS: Regular rate and rhythm, normal S1 and S2, no gallops, no murmurs, no rubs ABDOMEN: Soft, nontender. No hepatosplenomegaly, normal bowel sounds, no guarding or rigidity. PEG tube site is clean dry and intact EXTREMITIES: No clubbing, no edema, no cyanosis, 2+ pulses and upper and lower extremities. Chronic contracture of the left upper hand related to previous history of CVA MUSCULOSKELETAL: Muscle strength and tone normal. SPINE: No scoliosis or deformity SKIN: No rashes, unstageable sacral decubitus ulcer CENTRAL NERVOUS SYSTEM: Alert and oriented -3. No focal deficits, tone is normal in all 4 extremities. PSYCHIATRIC: Alert and oriented -3. Appropriate affect. Intact judgment and insight. - Labs CBC & Chem 7: 10/25/21 06:22 10/26/21 05:57 Assessment and Plan Plan: #1. Acute hypoxic respiratory failure secondary to COVID-19 pneumonia, intubated on 09/11/2021, status post tracheostomy and PEG tube placement on 09/23/2021, presently on T peice at 40%. The respiratory secretions are minimal for now. The patient is doing well. She has good cough and mechanism and good ability to do pulmonary toileting and patient was decannulated on 10/25/2021. #2. Altered mental status, acute toxic metabolic encephalopathy. No acute CVA noted on brain CT. Significantly improved. The patient's mental status is back to its baseline. #3. Acute COVID-19 pneumonia, resolved. #4. History of seizure activity. Under control. The patient remains on Keppra 1.5 g twice a day #5. Previous history of pulmonary embolism, on long-term treatment with Eliquis. No signs of any bleeding. #6. Paroxysmal atrial fibrillation, anticoagulated with Eliquis #7. Cardiomyopathy and LV dysfunction with ejection fraction of 30-35%. #8. History of pacemaker implantation. #9. 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 Hypothyroidism #11. Coronary artery disease #12. History of CVA in 2007 #13. History of psoriasis #14. Sacral /coccygeal decubitus ulcer, unstageable. Plan: Vital signs have been stable Patient is currently on room air No fever or chills, Continue encouraging deep breathing and coughing Patient is meeting her nutritional needs . Oral intake Tube feedings have been stopped We will ask surgical services about removing the PEG tube before she goes to ECF Stable for discharge once insurance authorization has been obtained for ECF placement I have personally seen and examined the patient, performed the documentation and the assessment and plan as written. Number of minutes spent on the visit: [10] Time with Patient: Less than 30 <Fernando Oviedo - Last Filed: 10/28/21 15:41> Objective - Vital Signs Vital signs: Vital Signs Temp 98.5 F 10/28/21 12:06 Pulse 85 10/28/21 12:06 Resp 15 10/28/21 12:06 BP 128/84 10/28/21 12:06 Pulse Ox 98 10/28/21 12:06 Intake & Output 10/27/21 10/28/21 10/28/21 18:59 06:59 18:59 Intake Total 720 920 Output Total 2 Balance 720 918 Weight 53.9 kg 45 kg 45 kg Intake: IV 0 Sodium Chloride 0.9% 1, 0 000 ml @ 20 mls/hr IV . Q24H [facility] Rx#:[id number] Tube Feeding 720 920 Output: Stool 2 Other: Voiding Method Bedside Commode Bedside Commode Bedside Commode Bedpan Bedpan Bedpan Diaper Diaper Diaper # Voids 5 # Bowel Movements 4 ABP, PAP, CO, CI - Last Documented Arterial Blood Pressure 123/58 - Labs CBC & Chem 7: 10/25/21 06:22 10/26/21 05:57 Assessment and Plan Plan: I have personally seen and examined the patient and reviewed the documentation. I performed a joint evaluation with the nurse practitioner in this evaluation was done more than 10 minutes. I fully agree with the documentation above and the plan of care.
[2021-10-28 12:17] VITALS: BP 128/84; RESP 15; TEMP 98.5
[2021-10-28 13:42] VITALS: BMI 15.5
--- NOTE | 2021-10-28 13:54 | P.DS ---
Providers Date of admission: 09/10/21 14:38 Expected date of discharge: 10/28/21 Attending physician: Garth Auguste Consults: 09/10/21 14:32 Consult Physician Routine Consulting Provider: [facility] Consult Reason/Comments: elevated troponin Do you want consulting provider notified?: Yes Consult Physician Stat Consulting Provider: Fernando Oviedo Consult Reason/Comments: hypernatremia, AMS, sepsis Do you want consulting provider notified?: Already Contacted 09/14/21 11:25 Consult Physician Routine Consulting Provider: Karina De Dios Consult Reason/Comments: COVID, Coccyx unstageable wound Do you want consulting provider notified?: Yes 09/21/21 08:39 Consult Physician Routine Consulting Provider: Terrell Loera Consult Reason/Comments: trach and peg Do you want consulting provider notified?: Yes 09/30/21 07:00 Consult Physician Routine Consulting Provider: Kevon Chua Consult Reason/Comments: awake, off paralytics, needs neuro re-eval 09/30/21 Do you want consulting provider notified?: Yes 10/20/21 12:28 Consult Physician Routine Consulting Provider: [facility]iat[facility] - [facility] Consult Reason/Comments: cognitive evaluation Do you want consulting provider notified?: Already Contacted 10/26/21 09:47 Consult Physician Routine Consulting Provider: Darrell Valadez Consult Reason/Comments: in pt rehab Do you want consulting provider notified?: Yes Primary care physician: Garth Auguste Hospital Course: Final diagnosis Altered mental status secondary to metabolic encephalopathy, ruled out intercranial lesions, resolved Acute hypoxic respiratory failure secondary to COVID-19 pneumonia, 2L oxygen via nasal cannula Status post tracheostomy, discontinued, and PEG tube placement Sepsis secondary to UTI and COVID-19 pneumonia, resolved with treatment Breakthrough seizure, history of previous seizures Unstageable sacral pressure ulcer Cardiomyopathy, EF of 30-35% Acute kidney injury, improved with treatment History of coronary artery disease history of pulmonary embolism History 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 left foot drop Status post permanent pacemaker History of glaucoma but surgical intervention Full code Discharge disposition Patient is being discharged in a stable condition with guarded prognosis to [facility]. Patient will follow-up with Dr. Auguste upon discharge from [facility]. Patient will need to follow-up with her neurologist in the outpatient setting once discharged from [facility] and continue current seizure medications. Total time taken is greater than 35 minutes. Hospital course This is a 51-year-old female who was admitted with altered mental status found a COVID-19 pneumonia urinary tract infection with seizures and possible stroke and was being closely monitored. Patient ultimately ended up in the ICU on mechanical ventilation and intubated with prolonged hospitalization. Patient was unsuccessfully unable to wean from the vent requiring tracheostomy and PEG placement and has been on tube feedings. Patient has been slowly improving and most recently had tracheostomy removed and tolerating well. Patient also has PEG tube although underwent swallow eval and was successful and swallow evaluation and started on heart healthy diet and tolerating. Recommend to continue with current medications as prescribed below and also continue antiseizure medications. Patient will need follow-up with her neurologist in the outpatient setting once discharged. Patient is extremely weak secondary to prolonged hospitalization and will be going to subacute rehab for extensive PT/OT therapy. Patient to follow-up with Dr. Auguste once discharged from [facility]. Currently no reports of chest pain, shortness of breath, or palpitations. Patient is afebrile. No reports of nausea or vomiting and patient is tolerating diet. Patient has received authorization from insurance and will be going to [facility] today. Guarded prognosis. PHYSICAL EXAMINATION: GENERAL: The patient is alert and oriented x 3, thin built HEENT: Pupils are round and equally reacting to light. EOMI. no scleral icterus. No conjunctival pallor. Normocephalic, atraumatic. No pharyngeal erythema. No thyromegaly. CARDIOVASCULAR: S1 and S2 muffled PULMONARY: diminished breath sounds bilaterally with some mild scattered rhonchi noted. ABDOMEN: soft. non-tender on exam. thin. non-distended, normoactive bowel s ounds. No palpable organomegaly. MUSCULOSKELETAL: No joint swelling or deformity. EXTREMITIES: No cyanosis, clubbing, or pedal edema. NEUROLOGICAL: no focal deficits noted. Left-sided residual deficits from previous stroke. diffuse weakness SKIN: No rashes. no lesions noted Please refer to medication reconciliation sheet for a list of medications. Patient Condition at Discharge: Stable Plan - Discharge Summary Discharge Rx Participant: No New Discharge Prescriptions: New Artificial Tears-Hypromellose [Artificial Tear Drops] 1 drops BOTH EYES QID PRN #10 ml PRN Reason: Dry Eye(S) QUEtiapine [SEROquel] 50 mg PO BID #1 tab ALPRAZolam [Xanax] 0.5 mg PO TID PRN #3 tab PRN Reason: Anxiety Magnesium Hydroxide [Milk of Magnesia Concentrate] 2,400 mg PEG/G-TUBE DAILY PRN ml PRN Reason: Constipation Metoprolol Tartrate [Lopressor] 25 mg PO BID #2 tab bisacodyL [Dulcolax] 10 mg RECTAL DAILY PRN supp PRN Reason: Constipation Continue Atorvastatin Calcium [Lipitor] 80 mg PO HS levETIRAcetam [Keppra] 1,500 mg PO BID carBAMazepine [TEGretol] 200 mg PO TID Amiodarone [Cordarone] 200 mg PO DAILY Apixaban [Eliquis] 5 mg PO BID Cholecalciferol [Vitamin D3 (125 Mcg = 5000 Iu)] 125 mcg PO DAILY #30 tablet Discontinued Gabapentin 600 mg PO TID Spironolactone [Aldactone] 25 mg PO DAILY Discharge Medication List Atorvastatin Calcium [Lipitor] 80 mg PO HS 03/08/14 [History] levETIRAcetam [Keppra] 1,500 mg PO BID 03/22/17 [History] Amiodarone [Cordarone] 200 mg PO DAILY 02/22/20 [History] carBAMazepine [TEGretol] 200 mg PO TID 02/22/20 [History] Apixaban [Eliquis] 5 mg PO BID 07/21/21 [History] Cholecalciferol [Vitamin D3 (125 Mcg = 5000 Iu)] 125 mcg PO DAILY #30 tablet 07/22/21 [Rx] ALPRAZolam [Xanax] 0.5 mg PO TID PRN #3 tab 10/21/21 [Rx] Artificial Tears-Hypromellose [Artificial Tear Drops] 1 drops BOTH EYES QID PRN #10 ml 10/21/21 [Rx] Metoprolol Tartrate [Lopressor] 25 mg PO BID #2 tab 10/21/21 [Rx] QUEtiapine [SEROquel] 50 mg PO BID #1 tab 10/21/21 [Rx] Magnesium Hydroxide [Milk of Magnesia Concentrate] 2,400 mg PEG/G-TUBE DAILY PRN ml 10/28/21 [Rx] bisacodyL [Dulcolax] 10 mg RECTAL DAILY PRN supp 10/28/21 [Rx] Follow up Appointment(s)/Referral(s): Garth Auguste MD [Primary Care Provider] - 1 Week Activity/Diet/Wound Care/Special Instructions: Patient is going to [facility] Activity as tolerated Okay to continue with heart healthy diet Continue with oral supplements and Magic cups 3 times a day with meals She is follow-up with primary care provider on discharge Patient follow-up with neurologist in the outpatient setting on discharge from ECF Continue taking medications as prescribed Continue with local wound care Discharge Disposition: TRANSFER TO SNF/ECF
--- NOTE | 2021-10-28 14:27 | P.PN ---
Subjective Progress Note Date: 10/28/21 CHIEF COMPLAINT: COVID-19 pneumonia HISTORY OF PRESENT ILLNESS: Patient is on regular medical floor. Patient underwent decannulation of her trach a few days ago. Also she is tolerating diet and meeting her nutritional needs. She passed her swallowing eval. Patient seen and examined with Dr. connell PHYSICAL EXAM: VITAL SIGNS: Reviewed. GENERAL:no acute distress. HEENT: Moist buccal mucosa. Head is atraumatic, normocephalic. Tracheostomy site clean and dry ABDOMEN: Soft. Nondistended. PEG tube site clean dry and intact. Bolster at 3cm NEUROLOGIC: awake ASSESSMENT: 1. Acute hypoxic respiratory failure secondary to COVID-19 pneumonia requiring mechanical ventilation 2. Severe protein calorie malnutrition PLAN: -PEG tube was discontinued by Dr. connell -Do not eat or drink anything for about 2 hours Physician Leasing Specialist note has been reviewed by physician. Signing provider agrees with the documented findings, assessment, and plan of care. Objective - Vital Signs Vital signs: Vital Signs Temp 98.5 F 10/28/21 12:06 Pulse 85 10/28/21 12:06 Resp 15 10/28/21 12:06 BP 128/84 10/28/21 12:06 Pulse Ox 98 10/28/21 12:06 Intake & Output 10/27/21 10/28/21 10/28/21 18:59 06:59 18:59 Intake Total 720 920 Output Total 2 Balance 720 918 Weight 53.9 kg 45 kg 45 kg Intake: IV 0 Sodium Chloride 0.9% 1, 0 000 ml @ 20 mls/hr IV . Q24H [facility] Rx#:[id number] Tube Feeding 720 920 Output: Stool 2 Other: Voiding Method Bedside Commode Bedside Commode Bedside Commode Bedpan Bedpan Bedpan Diaper Diaper Diaper # Voids 5 # Bowel Movements 4 ABP, PAP, CO, CI - Last Documented Arterial Blood Pressure 123/58 - Labs CBC & Chem 7: 10/25/21 06:22 10/26/21 05:57
[2021-10-28] MEDS: SODIUM CHLORIDE 0.9% 1,000 ML IV SCH (15:51)
== END 2021-10-28 17:20 | DRG 4 ==
LOC: EC 11:10 → 2SICU 14:38 → 5NMEDONC 10-19 23:46
PROVIDERS: ADMIT Family Medicine; ATTEND Family Medicine
PROC: 5A1955Z Respiratory Ventilation, Greater than 96 Consecutive Hours (ICD-10-PCS; principal; 2021-09-11)
PROC: 0BH18EZ Insertion of Endotracheal Airway into Trachea, Via Natural or Artificial Opening Endoscopic (ICD-10-PCS; 2021-09-11)
PROC: 0B9J8ZX Drainage of Left Lower Lung Lobe, Via Natural or Artificial Opening Endoscopic, Diagnostic (ICD-10-PCS; 2021-09-11)
PROC: 04HY32Z Insertion of Monitoring Device into Lower Artery, Percutaneous Approach (ICD-10-PCS; 2021-09-11)
PROC: 4A133B1 Monitoring of Arterial Pressure, Peripheral, Percutaneous Approach (ICD-10-PCS; 2021-09-11)
PROC: 4A133J1 Monitoring of Arterial Pulse, Peripheral, Percutaneous Approach (ICD-10-PCS; 2021-09-11)
PROC: 3E033XZ Introduction of Vasopressor into Peripheral Vein, Percutaneous Approach (ICD-10-PCS; 2021-09-11)
PROC: 03HY32Z Insertion of Monitoring Device into Upper Artery, Percutaneous Approach (ICD-10-PCS; 2021-09-22)
PROC: 4A133B1 Monitoring of Arterial Pressure, Peripheral, Percutaneous Approach (ICD-10-PCS; 2021-09-22)
PROC: 4A133J1 Monitoring of Arterial Pulse, Peripheral, Percutaneous Approach (ICD-10-PCS; 2021-09-22)
PROC: 0DH63UZ Insertion of Feeding Device into Stomach, Percutaneous Approach (ICD-10-PCS; 2021-09-23)
PROC: 0B110F4 Bypass Trachea to Cutaneous with Tracheostomy Device, Open Approach (ICD-10-PCS; 2021-09-23 08:20)
PROC: 02HV33Z Insertion of Infusion Device into Superior Vena Cava, Percutaneous Approach (ICD-10-PCS; 2021-09-28)
DX: A41.89 Other specified sepsis (principal); L89.123 Pressure ulcer of left upper back, stage 3; L89.153 Pressure ulcer of sacral region, stage 3; U07.1 COVID-19; B37.1 Pulmonary candidiasis; E43 Unspecified severe protein-calorie malnutrition; G92.8 Other toxic encephalopathy; I63.9 Cerebral infarction, unspecified; J12.82 Pneumonia due to coronavirus disease 2019; J15.211 Pneumonia due to Methicillin susceptible Staphylococcus aureus; J80 Acute respiratory distress syndrome; J96.01 Acute respiratory failure with hypoxia; I21.A1 Myocardial infarction type 2; J69.0 Pneumonitis due to inhalation of food and vomit; B37.0 Candidal stomatitis; B37.89 Other sites of candidiasis; C34.92 Malignant neoplasm of unspecified part of left bronchus or lung; Z68.1 Body mass index [BMI] 19.9 or less, adult; E87.1 Hypo-osmolality and hyponatremia; E87.4 Mixed disorder of acid-base balance; G72.81 Critical illness myopathy; I42.9 Cardiomyopathy, unspecified; I69.354 Hemiplegia and hemiparesis following cerebral infarction affecting left non-dominant side; J98.11 Atelectasis; N17.9 Acute kidney failure, unspecified; N39.0 Urinary tract infection, site not specified; T17.890A Other foreign object in other parts of respiratory tract causing asphyxiation, initial encounter; J44.0 Chronic obstructive pulmonary disease with (acute) lower respiratory infection; A41.51 Sepsis due to Escherichia coli [E. coli]; E03.9 Hypothyroidism, unspecified; E86.0 Dehydration; E87.8 Other disorders of electrolyte and fluid balance, not elsewhere classified; F17.200 Nicotine dependence, unspecified, uncomplicated; F32.A Depression, unspecified; F41.9 Anxiety disorder, unspecified; G40.909 Epilepsy, unspecified, not intractable, without status epilepticus; I25.10 Atherosclerotic heart disease of native coronary artery without angina pectoris; I48.0 Paroxysmal atrial fibrillation; I49.3 Ventricular premature depolarization; I50.9 Heart failure, unspecified; K02.9 Dental caries, unspecified; L89.150 Pressure ulcer of sacral region, unstageable; R29.6 Repeated falls; R32 Unspecified urinary incontinence; Z59.7 Insufficient social insurance and welfare support; Z79.01 Long term (current) use of anticoagulants; Z79.899 Other long term (current) drug therapy; Z82.49 Family history of ischemic heart disease and other diseases of the circulatory system; Z86.32 Personal history of gestational diabetes; Z86.711 Personal history of pulmonary embolism; Z86.718 Personal history of other venous thrombosis and embolism; Z88.1 Allergy status to other antibiotic agents; Z95.810 Presence of automatic (implantable) cardiac defibrillator; Z88.0 Allergy status to penicillin; L89.156 Pressure-induced deep tissue damage of sacral region; L89.126 Pressure-induced deep tissue damage of left upper back; X58.XXXA Exposure to other specified factors, initial encounter; M21.372 Foot drop, left foot; H40.9 Unspecified glaucoma; L89.022 Pressure ulcer of left elbow, stage 2; R74.01 Elevation of levels of liver transaminase levels
CPT/HCPCS: 31624; 36415; 36573; 36600; 43246; 70450; 70460; 71045; 76705; 80048; 80053; 80156; 80171; 80177; 80185; 80202; 80306; 80320; 81001; 81003; 82140; 82553; 82805; 83605; 83615; 83735; 83880; 84132; 84145; 84484; 84703; 85025; 85027; 85379; 85610; 85730; 86140; 87040; 87070; 87077; 87086; 87186; 87205; 87635; 93005; 93306; 94002; 94003; 94660; 94760; 95816; 96361; 96365; 96366; 96367; 96368; 96375; 99285

== ENCOUNTER → 2022-08-31 | Outpatient (CLI) | payer MEDICARE, OTHER | END | disposition home or self-care (01) | LOC: LABWHC1 14:00 | PROVIDERS: ATTEND Internal Medicine Cardiovascular Disease | DX: I47.20 Ventricular tachycardia, unspecified (principal) | CPT/HCPCS: 36415; 84443; 84450; 84460 ==

== ENCOUNTER → 2022-12-09 | Outpatient (CLI) | payer MEDICARE, OTHER ==
[2022-12-10 00:56] LABS: ALT 26 U/L (8-44); AST 32 U/L (13-35); Albumin 4.2 g/dL (3.8-4.9); Albumin/Globulin Ratio 1.41 (1.60-3.17); Alkaline Phosphatase 84 U/L (41-126); BUN/Creat Ratio 20.29 Ratio (12.00-20.00); Blood Urea Nitrogen 21.1 mg/dL (9.0-27.0); Calcium 9.1 mg/dL (8.7-10.3); Carbon Dioxide 23.8 mmol/L (20.0-27.5); Chloride 102 mmol/L (96-109); Chol/HDL Ratio 2.75 Ratio; Glucose 107 mg/dL (70-110); LDL Cholesterol,Calculated 103.3 mg/dL (0.0-131.0); Non-African American GFR(CKD) 62.2 (60.0-200.0); Potassium 4.2 mmol/L (3.5-5.5); Sodium 141 mmol/L (135-145); Total Protein 7.2 g/dL (6.2-8.2)
[2022-12-10 04:38] LABS: HIV 2 AB Non-Reactive (Non-Reactive); HIV AB P24 Non-Reactive (Non-Reactive); HIV P24 AG Non-Reactive (Non-Reactive)
== END | disposition home or self-care (01) ==
LOC: LABWHC1 15:09
PROVIDERS: ATTEND Family Medicine
DX: Z11.59 Encounter for screening for other viral diseases (principal); Z11.4 Encounter for screening for human immunodeficiency virus [HIV]; I10 Essential (primary) hypertension
CPT/HCPCS: 36415; 80053; 80061; 84439; 84443; 86803; 87390

== ENCOUNTER 2023-03-07 16:04 | Emergency (ER) | payer MEDICARE, OTHER ==
--- NOTE | 2023-03-07 17:11 | XR ---
EXAMINATION TYPE: XR hand complete LT DATE OF EXAM: 03/07/2023 4:34 PM INDICATION: Patient age:Female; 52 years old; Reason for study: Injury; [facility]. COMPARISON: No relevant priors TECHNIQUE: Frontal, lateral and oblique views of the left hand were obtained. FINDINGS: Limited evaluation due to flexed positioning of the third and fourth digits at the carpopha langeal joints. Minimally displaced, angulated fracture involving the fifth metacarpal head, best appreciated on obli que and lateral views. No additional fractures are appreciated. Flex positioning of the fifth digit a t the distal interphalangeal joint which may be due to patient positioning versus degeneration. Multi site degenerative changes of the distal interphalangeal and proximal interphalangeal joints as well a s the radiocarpal joint. Moderate soft tissue swelling of the hand. IMPRESSION: 1. Minimally displaced and angulated fracture of the fifth metacarpal head. 2. Diffuse soft tissue swelling of the left hand. 3. Osteoarthritic degeneration of the left hand.
[2023-03-07 19:56] VITALS: BP 144/88; PULSE 76; RESP 16; TEMP 97.9
--- NOTE | 2023-03-07 19:58 | ED ---
General Adult HPI - General Chief complaint: Extremity Injury, Upper Stated complaint: Hand injury Time Seen by Provider: 03/07/23 18:22 Source: patient, RN notes reviewed Mode of arrival: ambulatory Limitations: no limitations - History of Present Illness Initial comments: 52-year-old female presents to the emergency department with chief complaint of left hand pain following a fall that occurred yesterday. Patient states that she was walking out of the [employer] when she tripped and fell onto her left hand. Patient denies hitting her head or loss of consciousness. Patient reports that she had Covid 19 about a year ago and was in a medically induced coma, she states that when she woke up she had minimal function of her third and fourth and fifth digits of her left hand. She states that her third and fourth digits stay in flexion. She states that she sees Dr. Calero for this,. She reports no new numbness or tingling to her finger. - Related Data Home Medications Medication Instructions Recorded Confirmed Atorvastatin Calcium [Lipitor] 80 mg PO HS 03/08/14 09/10/21 levETIRAcetam [Keppra] 1,500 mg PO BID 03/22/17 09/10/21 Amiodarone [Cordarone] 200 mg PO DAILY 02/22/20 09/10/21 carBAMazepine [TEGretol] 200 mg PO TID 02/22/20 09/10/21 Apixaban [Eliquis] 5 mg PO BID 07/21/21 09/10/21 Previous Rx's Medication Instructions Recorded Cholecalciferol [Vitamin D3 (125 125 mcg PO DAILY #30 tablet 07/22/21 Mcg = 5000 Iu)] Artificial Tears-Hypromellose 1 drops BOTH EYES QID PRN #10 ml 10/21/21 [Artificial Tear Drops] Metoprolol Tartrate [Lopressor] 25 mg PO BID #2 tab 10/21/21 QUEtiapine [SEROquel] 50 mg PO BID #1 tab 10/21/21 ALPRAZolam [Xanax] 0.5 mg PO TID PRN 3 Days #9 tab 10/28/21 Magnesium Hydroxide [Milk of 2,400 mg PEG/G-TUBE DAILY PRN ml 10/28/21 Magnesia Concentrate] bisacodyL [Dulcolax] 10 mg RECTAL DAILY PRN supp 10/28/21 Allergies Allergy/AdvReac Type Severity Reaction Status Date / Time cephalexin monohydrate Allergy Rash/Hives Verified 03/07/23 16:15 [From Keflex] Penicillins Allergy Anaphylaxis Verified 03/07/23 16:15 Review of Systems ROS Statement: Those systems with pertinent positive or pertinent negative responses have been documented in the HPI. ROS Other: All systems not noted in ROS Statement are negative. 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 History of Any Multi-Drug Resistant Organisms: None Reported Past Surgical History: Pacemaker Additional Past Surgical History / Comment(s): Bilateral eye surgery for glaucoma Past Anesthesia/Blood Transfusion Reactions: No Reported Reaction Type of Cardiac Device: Permanent Pacemaker Device Placement Date:: 2012 Past Psychological History: Anxiety, Depression Smoking Status: Current every day smoker Past Alcohol Use History: Occasional Past Drug Use History: None Reported - Past Family History Father Family Medical History: Coronary Artery Disease (CAD), Myocardial Infarction ([place]) Additional Family Medical History / Comment(s): Father is 75 yrs old. He had a silent [place]. Mother Additional Family Medical History / Comment(s): Mother is at 32 yrs d/t cardiomyopathy General Exam Limitations: no limitations General appearance: alert, in no apparent distress Head exam: Present: atraumatic, normocephalic, normal inspection Eye exam: Present: normal appearance ENT exam: Present: normal exam, mucous membranes moist Neck exam: Present: normal inspection. Absent: tenderness, meningismus, lymphadenopathy Respiratory exam: Present: normal lung sounds bilaterally. Absent: respiratory distress, wheezes, rales, rhonchi, stridor Cardiovascular Exam: Present: regular rate, normal rhythm, normal heart sounds. Absent: systolic murmur, diastolic murmur, rubs, gallop, clicks Extremities exam: Present: tenderness (lateral left hand), normal capillary refill, other (radial pulses 2+ ). Absent: normal inspection, full ROM (decreased ROM of left 3-5th digits of the left hand ) Back exam: Present: normal inspection Neurological exam: Present: alert, oriented X3 Psychiatric exam: Present: normal affect, normal mood Skin exam: Present: warm, dry, intact, normal color. Absent: rash Course Vital Signs 03/07/23 03/07/23 03/07/23 16:13 19:56 20:03 Temperature 97.7 F 97.9 F 97.9 F Pulse Rate 72 76 Respiratory 20 16 Rate Blood Pressure 136/83 144/88 O2 Sat by Pulse 99 97 Oximetry Procedures - Orthopedic Splinting/Casting Injury #1 Side: left Upper Extremity Injury Location: hand Upper Extremity Immobilizer: ulnar gutter Medical Decision Making - Medical Decision Making Was pt. sent in by a medical professional or institution (KARI Little, VESSEL SCRAPPER, urgent care, hospital, or jail...) When possible be specific @ -No Did you speak to anyone other than the patient for history (EMS, parent, family, police, friend...)? What history was obtained from this source @ -No Did you review nursing and triage notes (agree or disagree)? Why? @ -I reviewed and agree with nursing and triage notes Were old charts reviewed (outside hosp., previous admission, EMS record, old EKG, old radiological studies, urgent care reports/EKG's, jail records)? Report findings @ -No old charts were reviewed Differential Diagnosis (chest pain, altered mental status, abdominal pain women, abdominal pain men, vaginal bleeding, weakness, fever, dyspnea, syncope, he adache, dizziness, GI bleed, back pain, seizure, CVA, palpatations, mental health, musculoskeletal)? @ -Differential Musculoskeletal Muscular strain, contusion, ligament sprain, fracture, arthritis, septic arthritis, bursitis, cellulitis, muscle spasm, nerve compression, DVT, arterial occlusion, herpes zoster, electrolyte abnormality, tumor.... This is not meant to be in all inclusive list EKG interpreted by me (3pts min.). @ -None X-rays interpreted by me (1pt min.). @ -X-ray left hand showed minimally displaced and angulated fifth metacarpal fracture CT interpreted by me (1pt min.). @ -None done U/S interpreted by me (1pt. min.). @ -None done What testing was considered but not performed or refused? (CT, X-rays, U/S, labs)? Why? @ -None What meds were considered but not given or refused? Why? @ -None Did you discuss the management of the patient with other professionals (professionals i.e. , PA, VESSEL SCRAPPER, lab, RT, psych nurse, social media strategist, teletype mechanic, teacher, [employer] officer, case mgr)? Give summary @ -No Was smoking cessation discussed for >3mins.? @ -No Was critical care preformed (if so, how long)? @ -No Were there social determinants of health that impacted care today? How? (Homelessness, low income, unemployed, alcoholism, drug addiction, transportation, low edu. Level, literacy, decrease access to med. care, custodial, rehab)? @ -No Was there de-escalation of care discussed even if they declined (Discuss DNR or withdrawal of care, Hospice)? DNR status @ -No What co-morbidities impacted this encounter? (DM, HTN, Smoking, COPD, CAD, Cancer, CVA, ARF, Chemo, Hep., AIDS, mental health diagnosis, sleep apnea, morbid obesity)? @ -None Was patient admitted / discharged? Hospital course, mention meds given and route, prescriptions, significant lab abnormalities, going to OR and other pertinent info. @ -Discharge. Patient presented to emergency department chief complaint of left hand injury that occurred yesterday following a mechanical fall. X-ray left hand showed minimally displaced and angulated fifth metacarpal fracture. Patient has deformity to the third through fifth phalanx which she states has been like that for over a year and she has been seeing Dr. Calero. She is neurovascularly intact. Patient was placed in an ulnar gutter splint and advised to follow-up with orthopedics in the next 1-2 days. Patient discharged in stable condition,. Case discussed with my attending, Dr. Adamson Undiagnosed new problem with uncertain prognosis? @ -No Drug Therapy requiring intensive monitoring for toxicity (Heparin, Nitro, Insulin, Cardizem)? @ -No Were any procedures done? @ -No Diagnosis/symptom? @ -Distal fifth metacarpal fracture Acute, or Chronic, or Acute on Chronic? @ -Acute Uncomplicated (without systemic symptoms) or Complicated (systemic symptoms)? @ -Uncomplicated Side effects of treatment? @ -No Exacerbation, Progression, or Severe Exacerbation? @ -No Poses a threat to life or bodily function? How? (Chest pain, [place], [place], pneumonia, PE, COPD, DKA, ARF, appy, cholecystitis, CVA, Diverticulitis, Homicidal, Suicidal, threat to staff... and all critical care pts) @ -No Disposition Clinical Impression: Fracture of fifth metacarpal bone of left hand Disposition: HOME SELF-CARE Condition: Stable Instructions (If sedation given, give patient instructions): Hand Fracture (ED) Additional Instructions: Please return to the emergency department for new or worsening symptoms. Is patient prescribed a controlled substance at d/c from ED?: No Referrals: aGrth Auguste MD [Primary Care Provider] - 1-2 days Fabio Calero DO [Doctor of Osteopathic Medicine] - 1-2 days Time of Disposition: 19:57
== END 2023-03-07 20:07 | disposition home or self-care (01) ==
LOC: EC 16:04
DX: S62.307A Unspecified fracture of fifth metacarpal bone, left hand, initial encounter for closed fracture (principal); I25.10 Atherosclerotic heart disease of native coronary artery without angina pectoris; I50.9 Heart failure, unspecified; F41.9 Anxiety disorder, unspecified; F32.A Depression, unspecified; F17.200 Nicotine dependence, unspecified, uncomplicated; Z79.899 Other long term (current) drug therapy; Z79.01 Long term (current) use of anticoagulants; Z88.0 Allergy status to penicillin; Z86.73 Personal history of transient ischemic attack (TIA), and cerebral infarction without residual deficits; Z88.1 Allergy status to other antibiotic agents; W19.XXXA Unspecified fall, initial encounter; Y93.01 Activity, walking, marching and hiking
CPT/HCPCS: 29125; 99283

== ENCOUNTER 2023-07-03 13:27 | Emergency (ER) | payer MEDICARE, OTHER ==
[2023-07-03 13:38] VITALS: BP 133/81; PULSE 76; TEMP 98.2
--- NOTE | 2023-07-03 13:57 | ED ---
Extremity Problem HPI - General Chief complaint: Extremity Problem,Nontraumatic Stated complaint: leg blisters Time Seen by Provider: 07/03/23 13:40 Source: patient, RN notes reviewed Mode of arrival: ambulatory Limitations: no limitations - History of Present Illness Initial comments: 53-year-old female presents emergency Department with chief complaint of left leg sores, redness and drainage. Patient states that this has been going on for couple days she has chronic swelling which she takes Lasix for. This is not worsened usual. Patient states she has no difficulty ambulating patient denies any trauma denies night sweats. Patient states she has ALLERGY to penicillin products. - Related Data Home Medications Medication Instructions Recorded Confirmed Atorvastatin Calcium [Lipitor] 80 mg PO HS 03/08/14 09/10/21 levETIRAcetam [Keppra] 1,500 mg PO BID 03/22/17 09/10/21 Amiodarone [Cordarone] 200 mg PO DAILY 02/22/20 09/10/21 carBAMazepine [TEGretol] 200 mg PO TID 02/22/20 09/10/21 Apixaban [Eliquis] 5 mg PO BID 07/21/21 09/10/21 Previous Rx's Medication Instructions Recorded Cholecalciferol [Vitamin D3 (125 125 mcg PO DAILY #30 tablet 07/22/21 Mcg = 5000 Iu)] Artificial Tears-Hypromellose 1 drops BOTH EYES QID PRN #10 ml 10/21/21 [Artificial Tear Drops] Metoprolol Tartrate [Lopressor] 25 mg PO BID #2 tab 10/21/21 QUEtiapine [SEROquel] 50 mg PO BID #1 tab 10/21/21 ALPRAZolam [Xanax] 0.5 mg PO TID PRN 3 Days #9 tab 10/28/21 Magnesium Hydroxide [Milk of 2,400 mg PEG/G-TUBE DAILY PRN ml 10/28/21 Magnesia Concentrate] bisacodyL [Dulcolax] 10 mg RECTAL DAILY PRN supp 10/28/21 clindamycin HCL 300 mg PO QID #40 cap 07/03/23 Allergies Allergy/AdvReac Type Severity Reaction Status Date / Time cephalexin monohydrate Allergy Rash/Hives Verified 07/03/23 13:34 [From Keflex] Penicillins Allergy Anaphylaxis Verified 07/03/23 13:34 Review of Systems ROS Statement: Those systems with pertinent positive or pertinent negative responses have been documented in the HPI. ROS Other: All systems not noted in ROS Statement are negative. 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 Covid History of Any Multi-Drug Resistant Organisms: None Reported Past Surgical History: Pacemaker Additional Past Surgical History / Comment(s): Bilateral eye surgery for glaucoma Past Anesthesia/Blood Transfusion Reactions: No Reported Reaction Type of Cardiac Device: Permanent Pacemaker Device Placement Date:: 2012 Past Psychological History: Anxiety, Depression Smoking Status: Current every day smoker Past Alcohol Use History: Occasional Past Drug Use History: None Reported - Past Family History Father Family Medical History: Coronary Artery Disease (CAD), Myocardial Infarction ([place]) Additional Family Medical History / Comment(s): Father is 75 yrs old. He had a silent [place]. Mother Additional Family Medical History / Comment(s): Mother is at 32 yrs d/t cardiomyopathy General Exam Limitations: no limitations General appearance: alert, in no apparent distress Head exam: Present: atraumatic, normocephalic, normal inspection Eye exam: Present: normal appearance, PERRL, EOMI. Absent: scleral icterus, conjunctival injection, periorbital swelling Neck exam: Present: normal inspection. Absent: tenderness, meningismus, lymphadenopathy Respiratory exam: Present: normal lung sounds bilaterally. Absent: respiratory distress, wheezes, rales, rhonchi, stridor Cardiovascular Exam: Present: regular rate, normal rhythm, normal heart sounds. Absent: systolic murmur, diastolic murmur, rubs, gallop, clicks Extremities exam: Present: other (Mild swelling bilaterally left greater than right there is erythema and some sores noted small amount of purulent drainage) Course Vital Signs 07/03/23 13:31 Temperature 98.2 F Pulse Rate 76 Respiratory 20 Rate Blood Pressure 133/81 O2 Sat by Pulse 99 Oximetry Medical Decision Making - Medical Decision Making Was pt. sent in by a medical professional or institution ([facility]I Little, HOOP FLARING MACHINE OPERATOR HELPER, urgent care, hospital, or penitentiary...) When possible be specific @ -No Did you speak to anyone other than the patient for history (EMS, parent, family, police, friend...)? What history was obtained from this source @ -No Did you review nursing and triage notes (agree or disagree)? Why? @ -I reviewed and agree with nursing and triage notes Were old charts reviewed (outside hosp., previous admission, EMS record, old EKG, old radiological studies, urgent care reports/EKG's, penitentiary records)? Report findings @ -No old charts were reviewed Differential Diagnosis (chest pain, altered mental status, abdominal pain women, abdominal pain men, vaginal bleeding, weakness, fever, dyspnea, syncope, headache, dizziness, GI bleed, back pain, seizure, CVA, palpatations, mental health, musculoskeletal)? @ -Leg cellulitis, edema EKG interpreted by me (3pts min.). @ -None X-rays interpreted by me (1pt min.). @ -None done CT interpreted by me (1pt min.). @ -None done U/S interpreted by me (1pt. min.). @ -None done What testing was considered but not performed or refused? (CT, X-rays, U/S, labs)? Why? @ -None What meds were considered but not given or refused? Why? @ -None Did you discuss the management of the patient with other professionals (professionals i.e. KARI Little, HOOP FLARING MACHINE OPERATOR HELPER, lab, RT, psych nurse, social media analyst, responder, teacher, combatant diver officer, bilingual case manager)? Give summary @ -No Was smoking cessation discussed for >3mins.? @ -No Was critical care preformed (if so, how long)? @ -No Were there social determinants of health that impacted care today? How? (Homelessness, low income, unemployed, alcoholism, drug addiction, transportation, low edu. Level, literacy, decrease access to med. care, [facility], rehab)? @ -No Was there de-escalation of care discussed even if they declined (Discuss DNR or withdrawal of care, Hospice)? DNR status @ -No What co-morbidities impacted this encounter? (DM, HTN, Smoking, COPD, CAD, Cancer, CVA, ARF, Chemo, Hep., AIDS, mental health diagnosis, sleep apnea, morbid obesity)? @ -CHF DVT Was patient admitted / discharged? Hospital course, mention meds given and ro christian, prescriptions, significant lab abnormalities, going to OR and other pertinent info. @ -[Discharge patient has evidence of cellulitis to left leg she has chronic swelling on Lasix this is not off her baseline. Patient vitals are stable patient discharged on clindamycin as she has Keflex ALLERGY. Return parameters were discussed. Undiagnosed new problem with uncertain prognosis? @ -No Drug Therapy requiring intensive monitoring for toxicity (Heparin, Nitro, Insulin, Cardizem)? @ -No Were any procedures done? @ -No Diagnosis/symptom? @ -Left leg cellulitis Acute, or Chronic, or Acute on Chronic? @ -Acute Uncomplicated (without systemic symptoms) or Complicated (systemic symptoms)? @ -Uncomplicated Side effects of treatment? @ -No Exacerbation, Progression, or Severe Exacerbation? @ -No Poses a threat to life or bodily function? How? (Chest pain, [place], [place], pneumonia, PE, COPD, DKA, ARF, appy, cholecystitis, CVA, Diverticulitis, Homicidal, Suicidal, threat to staff... and all critical care pts) @ -No Disposition Clinical Impression: Left leg cellulitis Disposition: HOME SELF-CARE Condition: Stable Instructions (If sedation given, give patient instructions): Cellulitis (ED) Additional Instructions: Please return to the Emergency Department if symptoms worsen or any other concerns. Prescriptions: clindamycin HCL 300 mg PO QID #40 cap Is patient prescribed a controlled substance at d/c from ED?: No Referrals: Garth Auguste MD [Primary Care Provider] - 1-2 days
[2023-07-03 14:20] VITALS: RESP 16
== END 2023-07-03 14:06 | disposition home or self-care (01) ==
LOC: EC 13:27
DX: L03.116 Cellulitis of left lower limb (principal); I42.9 Cardiomyopathy, unspecified; I25.10 Atherosclerotic heart disease of native coronary artery without angina pectoris; I50.9 Heart failure, unspecified; F17.200 Nicotine dependence, unspecified, uncomplicated; Z86.59 Personal history of other mental and behavioral disorders; Z88.0 Allergy status to penicillin; Z86.73 Personal history of transient ischemic attack (TIA), and cerebral infarction without residual deficits; Z88.1 Allergy status to other antibiotic agents; Z79.899 Other long term (current) drug therapy; Z79.01 Long term (current) use of anticoagulants; Z86.16 Personal history of COVID-19; Z95.0 Presence of cardiac pacemaker
CPT/HCPCS: 99283

== ENCOUNTER → 2023-08-23 | Outpatient (CLI) | payer MEDICARE, OTHER ==
--- NOTE | 2023-08-24 14:20 | MM ---
Reason for Exam: Screening (asymptomatic). Baseline mammogram. Patient History: Menarche at age 12. First Full-Term at age 29. Risk Values: Shazia 5 year model risk: 1.3%. NCI Lifetime model risk: 10.5%. Prior Study Comparison: Patient's first Mammogram. Tissue Density: The breast tissue is heterogeneously dense. This may lower the sensitivity of mammography. Findings: Analyzed By CAD. There are 2 masses within the left breast on MLO view 5.6 cm nipple measuring 9 mm superiorly and on MLO view 8 cm from nipple measuring 8 mm more posterior and posterior nipple line. These may be posterior nipple line and lateral on CT imaging. Left cardiac conduction device. Overall Assessment: Incomplete: need additional imaging evaluation, BI-RAD 0 Management: Diagnostic Breast Ultrasound of the left breast. [facility] will attempt to contact patient to return for supplemental views and ultrasound if indicated. Patient should continue monthly self-breast exams. A clinical breast exam by your physician is recommended on an annual basis. This exam should not preclude additional follow-up of suspicious palpable abnormalities. Note on Shazia scores and lifetime risk: 1. A Shazia score greater than 3% is considered moderate risk. If this is the case, consider specialist referral to assess eligibility for a risk reducing agent. 2. If overall lifetime risk for the development of breast cancer is 20% or higher, the patient may qualify for future screening with alternating mammogram and breast MRI. Electronically signed and approved by: J Carlos Jeffers DO
== END | disposition home or self-care (01) ==
LOC: RADMAMWWP 14:48
PROVIDERS: ATTEND Family Medicine
DX: Z12.31 Encounter for screening mammogram for malignant neoplasm of breast (principal)
CPT/HCPCS: 77063; 77067

== ENCOUNTER 2023-11-14 12:53 | Emergency (ER) | payer MEDICARE ==
[2023-11-14 13:27] VITALS: RESP 18; TEMP 98.3
--- NOTE | 2023-11-14 13:41 | ED ---
Female Urogenital HPI - General Chief complaint: Urogenital Stated complaint: Urogenital Time Seen by Provider: 11/14/23 13:00 Source: patient Mode of arrival: ambulatory Limitations: no limitations - History of Present Illness Initial comments: 53-year-old female presents the emergency department with possible vaginal foreign body. States that she was on her menstrual cycle 1 week ago and has been unable to pull out the last tampon that she used. States that she has been attempting to get it out however finally succumbed to the idea that she cannot and came to the emergency department. She does admit to some right lower quadrant pain. No fevers. No increase in vaginal discharge. Denies any concern for any sexually transmitted infections. Has not had any vaginal bleeding. No other alleviating, precipitating or modifying factors - Related Data Home Medications Medication Instructions Recorded Confirmed Atorvastatin Calcium [Lipitor] 80 mg PO HS 03/08/14 09/10/21 levETIRAcetam [Keppra] 1,500 mg PO BID 03/22/17 09/10/21 Amiodarone [Cordarone] 200 mg PO DAILY 02/22/20 09/10/21 carBAMazepine [TEGretol] 200 mg PO TID 02/22/20 09/10/21 Apixaban [Eliquis] 5 mg PO BID 07/21/21 09/10/21 Previous Rx's Medication Instructions Recorded Cholecalciferol [Vitamin D3 (125 125 mcg PO DAILY #30 tablet 07/22/21 Mcg = 5000 Iu)] Artificial Tears-Hypromellose 1 drops BOTH EYES QID PRN #10 ml 10/21/21 [Artificial Tear Drops] Metoprolol Tartrate [Lopressor] 25 mg PO BID #2 tab 10/21/21 QUEtiapine [SEROquel] 50 mg PO BID #1 tab 10/21/21 ALPRAZolam [Xanax] 0.5 mg PO TID PRN 3 Days #9 tab 10/28/21 Magnesium Hydroxide [Milk of 2,400 mg PEG/G-TUBE DAILY PRN ml 10/28/21 Magnesia Concentrate] bisacodyL [Dulcolax] 10 mg RECTAL DAILY PRN supp 10/28/21 clindamycin HCL 300 mg PO QID #40 cap 07/03/23 Sulfamethox-Tmp 800-160Mg [Bactrim 1 each PO Q12HR #14 tab 11/14/23 Ds] Allergies Allergy/AdvReac Type Severity Reaction Status Date / Time cephalexin monohydrate Allergy Rash/Hives Verified 11/14/23 12:58 [From Keflex] Penicillins Allergy Anaphylaxis Verified 11/14/23 12:58 Review of Systems ROS Statement: Those systems with pertinent positive or pertinent negative responses have been documented in the HPI. ROS Other: All systems not noted in ROS Statement are negative. 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 Covid History of Any Multi-Drug Resistant Organisms: None Reported Past Surgical History: Pacemaker Additional Past Surgical History / Comment(s): Bilateral eye surgery for glaucoma Past Anesthesia/Blood Transfusion Reactions: No Reported Reaction Type of Cardiac Device: Permanent Pacemaker Device Placement Date:: 2012 Past Psychological History: Anxiety, Depression Smoking Status: Never smoker Past Alcohol Use History: Occasional Past Drug Use History: None Reported - Past Family History Father Family Medical History: Coronary Artery Disease (CAD), Myocardial Infarction (AL) Additional Family Medical History / Comment(s): Father is 75 yrs old. He had a silent AL. Mother Additional Family Medical History / Comment(s): Mother is at 32 yrs d/t cardiomyopathy General Exam Limitations: no limitations General appearance: alert, in no apparent distress Head exam: Present: atraumatic, normocephalic, normal inspection Eye exam: Present: normal appearance, PERRL, EOMI. Absent: scleral icterus, conjunctival injection, periorbital swelling ENT exam: Present: normal exam, mucous membranes moist Neck exam: Present: normal inspection. Absent: tenderness, meningismus, lymphadenopathy Respiratory exam: Present: normal lung sounds bilaterally. Absent: respiratory distress, wheezes, rales, rhonchi, stridor Cardiovascular Exam: Present: regular rate, normal rhythm, normal heart sounds. Absent: systolic murmur, diastolic murmur, rubs, gallop, clicks GI/Abdominal exam: Present: soft, tenderness (Suprapubic), normal bowel sounds. Absent: distended, guarding, rebound, rigid External exam: Present: normal external exam. Absent: erythema, swelling, lesions, lacerations, ecchymosis Speculum exam: Present: normal speculum exam, vaginal discharge (Milky white). Absent: foreign body, laceration Extremities exam: Present: normal inspection, full ROM, normal capillary refill. Absent: tenderness, pedal edema, joint swelling, calf tenderness Back exam: Present: normal inspection Neurological exam: Present: alert, oriented X3, CN II-XII intact Psychiatric exam: Present: normal affect, normal mood Skin exam: Present: warm, dry, intact, normal color. Absent: rash Course Vital Signs 11/14/23 11/14/23 12:56 15:08 Temperature 98.3 F 98.3 F Pulse Rate 82 76 Respiratory 18 18 Rate Blood Pressure 132/78 120/84 O2 Sat by Pulse 99 99 Oximetry Medical Decision Making - Medical Decision Making Was pt. sent in by a medical professional or institution (, PA, GRADES 7 8 TUTOR, urgent care, hospital, or snf...) When possible be specific @ -No Did you speak to anyone other than the patient for history (EMS, parent, family, police, friend...)? What history was obtained from this source @ -No Did you review nursing and triage notes (agree or disagree)? Why? @ -I reviewed and agree with nursing and triage notes Were old charts reviewed (outside hosp., previous admission, EMS record, old EKG, old radiological studies, urgent care reports/EKG's, snf records)? Report findings @ -No old charts were reviewed Differential Diagnosis (chest pain, altered mental status, abdominal pain women, abdominal pain men, vaginal bleeding, weakness, fever, dyspnea, syncope, headache, dizziness, GI bleed, back pain, seizure, CVA, palpatations, mental health, musculoskeletal)? @ -Vaginal foreign body, STI sexual assault, UTI EKG interpreted by me (3pts min.). @ -Not done X-rays interpreted by me (1pt min.). @ -None done CT interpreted by me (1pt min.). @ -None done U/S interpreted by me (1pt. min.). @ -Yes and demonstrates no acute process What testing was considered but not performed or refused? (CT, X-rays, U/S, labs)? Why? @ -None What meds were considered but not given or refused? Why? @ -None Did you discuss the management of the patient with other professionals (professionals i.e. , PA, GRADES 7 8 TUTOR, lab, RT, psych nurse, dialysis social worker, gas operations superintendent, teacher, industrial relations officer, skilled nursing case manager)? Give summary @ -No Was smoking cessation discussed for >3mins.? @ -No Was critical care preformed (if so, how long)? @ -No Were there social determinants of health that impacted care today? How? (Homelessness, low income, unemployed, alcoholism, drug addiction, transportation, low edu. Level, literacy, decrease access to med. care, care home, rehab)? @ -No Was there de-escalation of care discussed even if they declined (Discuss DNR or withdrawal of care, Hospice)? DNR status @ -No What co-morbidities impacted this encounter? (DM, HTN, Smoking, COPD, CAD, Cancer, CVA, ARF, Chemo, Hep., AIDS, mental health diagnosis, sleep apnea, morbid obesity)? @ -None Was patient admitted / discharged? Hospital course, mention meds given and route, prescriptions, significant lab abnormalities, going to OR and other pertinent info. @ -Upon arrival patient was placed into room 25. Thorough history and physical exam was performed. Pelvic exam was performed. No signs of foreign body. Patient has suprapubic pain. Urinalysis and ultrasound was ordered. Patient does have abnormal UA concerning for UTI. Patient will be initiated on antibiotics. Ultrasound negative at this time. She will be discharged home instructed to take the medications as directed. Follow-up with her doctor to ensure that her pain and infection are resolving. Return for any new or worsening symptoms. Patient was agreeable to plan she was discharged in stable condition Undiagnosed new problem with uncertain prognosis? @ -No Drug Therapy requiring intensive monitoring for toxicity (Heparin, Nitro, Insulin, Cardizem)? @ -No Were any procedures done? @ -No Diagnosis/symptom? @Acute abdominal pain, acute UTI, concern for vaginal foreign body Acute, or Chronic, or Acute on Chronic? @ -Acute Uncomplicated (without systemic symptoms) or Complicated (systemic symptoms)? @ -Complicated Side effects of treatment? @ -No Exacerbation, Progression, or Severe Exacerbation? @ -No Poses a threat to life or bodily function? How? (Chest pain, USA, AL, pneumonia, PE, COPD, DKA, ARF, appy, cholecystitis, CVA, Diverticulitis, Homicidal, Suicidal, threat to staff... and all critical care pts) @ -No - Lab Data Lab Results 11/14/23 Range/Units 13:34 Urine Color Colorless Urine Appearance Cloudy H (Clear) Urine pH 5.0 (5.0-8.0) Ur Specific [place] 1.005 (1.001-1.035) Urine Protein Negative (Negative) Urine Glucose (UA) Negative (Negative) Urine Ketones Negative (Negative) Urine Blood Negative (Negative) Urine Nitrite Negative (Negative) Urine Bilirubin Negative (Negative) Urine Urobilinogen <2.0 (<2.0) mg/dL Ur Leukocyte Esterase Moderate H (Negative) Urine RBC 1 (0-5) /hpf Urine WBC 3 (0-5) /hpf Ur Squamous Epith Cells 6 H (0-4) /hpf Amorphous Sediment Rare H (None) /hpf Urine Bacteria Many H (None) /hpf Urine Mucus Rare H (None) /hpf Disposition Clinical Impression: UTI (urinary tract infection), Pelvic pain Disposition: HOME SELF-CARE Condition: Stable Instructions (If sedation given, give patient instructions): Urinary Tract Infection in Women (ED) Additional Instructions: Please take another dose of the Bactrim tonight. Follow-up with your primary care doctor to ensure that the infection has cleared. Return for any new or worsening symptoms Prescriptions: Sulfamethox-Tmp 800-160Mg [Bactrim Ds] 1 each PO Q12HR #14 tab Is patient prescribed a controlled substance at d/c from ED?: No Referrals: Garth Auguste MD [Primary Care Provider] - 1-2 days Time of Disposition: 15:00
[2023-11-14 14:13] LABS: Amorphous Sediment,Urine Rare /hpf; Appearance,Urine Cloudy (Clear); Bacteria,Urine Many /hpf; Bilirubin,Urine Negative (Negative); Blood,Urine Negative (Negative); Color,Urine Colorless; Glucose,Urine (UA) Negative (Negative); Ketones,Urine Negative (Negative); Leukocyte Esterase,Urine Moderate (Negative); Mucus,Urine Rare /hpf; Nitrite,Urine Negative (Negative); Protein,Urine Negative (Negative); RBC,Urine 1 /hpf (0-5); Specific Gravity,Urine 1.005 (1.001-1.035); Squamous Epithelial Cell,Urine 6 /hpf (0-4); Urobilinogen,Urine <2.0 mg/dL (<2.0); WBC,Urine 3 /hpf (0-5)
--- NOTE | 2023-11-14 14:52 | US ---
EXAMINATION TYPE: US transvaginal DATE OF EXAM: 11/14/2023 COMPARISON: NONE CLINICAL INDICATION: Female, 53 years old with history of rlq pain; RLQ pain TECHNIQUE: Transvaginal (TV). EXAM MEASUREMENTS: Uterus: 8.4 x 5.5 x 6.8 cm Endometrial Stripe: 1.3 cm which is thickened. Right Ovary: cm Left Ovary: 3.5 x 2.5x 2.1 cm 1. Uterus: Retroverted wnl 2. Endometrium: wnl 3. Right Ovary: wnl 4. Left Ovary: anechoic area seen 1.7 x 1.9 x 1.9 cm. Spectral, color and waveform doppler imaging shows good arterial and venous flow within the ovaries ; there is no evidence for ovarian torsion. 5. Bilateral Adnexa: wnl 6. Posterior cul-de-sac: wnl IMPRESSION: 1. No evidence for acute process. 2. Thickened endometrium for a postmenopausal patient. Correlate with menopausal status.
[2023-11-14] MEDS: SULFAMETHOX-TMP 800-160MG 1 EACH TAB PO STA (15:07)
[2023-11-14 15:13] VITALS: BP 120/84; PULSE 76
== END 2023-11-14 15:10 | disposition home or self-care (01) ==
LOC: EC 12:53
DX: N39.0 Urinary tract infection, site not specified (principal); Z88.1 Allergy status to other antibiotic agents; Z88.0 Allergy status to penicillin
CPT/HCPCS: 76830; 81001; 93975; 99284

== ENCOUNTER 2024-04-25 21:23 | Emergency (ER) | payer MEDICARE ==
[~2024-04-25 21:23] MED LIST: KETOROLAC 15 MG/ML 1 ML VIAL ONE; MORPHINE SULFATE 2 MG/ML SYRINGE ONE
[2024-04-25 21:47] VITALS: BP 133/83; PULSE 76; RESP 18; TEMP 98.1
--- NOTE | 2024-04-26 11:53 | XR ---
Patient: Hannah Campos M Ordering Physician: Unknown, Unknown ID: [id number] Phone, Pager: Phone: N/A Pager: N/A : 1970 Age/Gender: 54Y, F Primary Location: N/A Procedure: left wrist Study Date: 04/26/2024 12:24:40 AM Order #: N/A EXAMINATION TYPE: Wrist X-Ray Complete Left DATE OF EXAM: 04/26/2024 CLINICAL HISTORY: Pain after fall. TECHNIQUE: Frontal, lateral and oblique images of the left wrist are obtained. 4 view scaphoid view is performed. COMPARISON: None FINDINGS: There is acute impacted comminuted fractures through the distal radial metaphysis. Likely i ntra-articular extension is noted. Suspect acute tiny avulsion type fracture from the ulnar styloid w ith 3 mm ossific fragment. Carpal joint spaces are maintained. Overlying soft tissues are unremarkabl e. IMPRESSION: As above.
== END 2024-04-26 04:06 | disposition home or self-care (01) ==
LOC: EC 21:23
DX: R52 Pain, unspecified
CPT/HCPCS: 96372; 99284

== ENCOUNTER 2024-11-17 21:15 | Observation (INO) | payer MEDICARE ==
--- NOTE | 2024-11-17 22:09 | ED ---
General Adult HPI - General Chief complaint: Skin/Abscess/Foreign Body Stated complaint: Blisters all over Time Seen by Provider: 11/17/24 21:23 Source: patient Mode of arrival: ambulatory - History of Present Illness Initial comments: Dictation was produced using [employer] dictation software. please excuse any grammatical, word or spelling errors. Chief Complaint: 54-year-old female with rash History of Present Illness: 54-year-old female multiple comorbidities presents to the emergency department for several blisters. She was seen by outpatient physicians on clindamycin. States that clindamycin was given to prevent any superimposed infection. Patient denies ever having had a rash like this before. Denies any oral lesions. No abdominal pain or rectal pain. The ROS documented in this emergency department record has been reviewed and confirmed by me. Those systems with pertinent positive or negative responses have been documented in the HPI. All other systems are other negative and/or noncontributory. - Related Data Home Medications Medication Instructions Recorded Confirmed Atorvastatin Calcium [Lipitor] 80 mg PO HS 03/08/14 09/10/21 levETIRAcetam [Keppra] 1,500 mg PO BID 03/22/17 09/10/21 Amiodarone [Cordarone] 200 mg PO DAILY 02/22/20 09/10/21 carBAMazepine [TEGretol] 200 mg PO TID 02/22/20 09/10/21 Apixaban [Eliquis] 5 mg PO BID 07/21/21 09/10/21 Previous Rx's Medication Instructions Recorded Cholecalciferol [Vitamin D3 (125 125 mcg PO DAILY #30 tablet 07/22/21 Mcg = 5000 Iu)] Artificial Tears-Hypromellose 1 drops BOTH EYES QID PRN #10 ml 10/21/21 [Artificial Tear Drops] Metoprolol Tartrate [Lopressor] 25 mg PO BID #2 tab 10/21/21 QUEtiapine [SEROquel] 50 mg PO BID #1 tab 10/21/21 ALPRAZolam [Xanax] 0.5 mg PO TID PRN 3 Days #9 tab 10/28/21 Magnesium Hydroxide [Milk of 2,400 mg PEG/G-TUBE DAILY PRN ml 10/28/21 Magnesia Concentrate] bisacodyL [Dulcolax] 10 mg RECTAL DAILY PRN supp 10/28/21 clindamycin HCL 300 mg PO QID #40 cap 07/03/23 Sulfamethox-Tmp 800-160Mg [Bactrim 1 each PO Q12HR #14 tab 11/14/23 Ds] Allergies Allergy/AdvReac Type Severity Reaction Status Date / Time cephalexin monohydrate Allergy Rash/Hives Verified 11/17/24 21:20 [From Keflex] Penicillins Allergy Anaphylaxis Verified 11/17/24 21:20 Review of Systems ROS Statement: Those systems with pertinent positive or pertinent negative responses have been documented in the HPI. ROS Other: All systems not noted in ROS Statement are negative. 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 Covid History of Any Multi-Drug Resistant Organisms: None Reported Past Surgical History: Pacemaker Additional Past Surgical History / Comment(s): Bilateral eye surgery for glaucoma Past Anesthesia/Blood Transfusion Reactions: No Reported Reaction Type of Cardiac Device: Permanent Pacemaker Device Placement Date:: 2012 Past Psychological History: Anxiety, Depression Smoking Status: Never smoker Past Alcohol Use History: Occasional Past Drug Use History: None Reported - Past Family History Father Family Medical History: Coronary Artery Disease (CAD), Myocardial Infarction (CT) Additional Family Medical History / Comment(s): Father is 75 yrs old. He had a silent CT. Mother Additional Family Medical History / Comment(s): Mother is at 32 yrs d/t cardiomyopathy General Exam - General Exam Comments Initial Comments: General: Well-appearing, nontoxic, no acute distress. Head: Normocephalic, atraumatic Eyes: PERRLA, EOMI ENT: Airway patent Chest: Nonlabored breathing Skin: Diffuse blistering rash of different stages along the extremities thorax abdomen, no oral mucosal involvement, rash spares palms and soles Neuro: Alert and oriented 3 Musculoskeletal: No gross abnormalities Course Vital Signs 11/17/24 21:18 Temperature 97.8 F Pulse Rate 105 H Respiratory 17 Rate Blood Pressure 158/89 O2 Sat by Pulse 100 Oximetry Medical Decision Making - Medical Decision Making Was pt. sent in by a medical professional or institution (, PA, MAJOR ASSEMBLER, urgent care, hospital, or snf...) When possible be specific @ -No Did you speak to anyone other than the patient for history (EMS, parent, family, police, friend...)? What history was obtained from this source @ -No Did you review nursing and triage notes (agree or disagree)? Why? @ -I reviewed and agree with nursing and triage notes Were old charts reviewed (outside hosp., previous admission, EMS record, old EKG, old radiological studies, urgent care reports/EKG's, snf records)? Report findings @ -No old charts were reviewed Differential Diagnosis (chest pain, altered mental status, abdominal pain women, abdominal pain men, vaginal bleeding, musculoskeletal, weakness, fever, dyspnea, syncope, headache, dizziness, GI bleed, back pain, seizure, CVA, palpatations, mental health)? @ -Walter-Curtis syndrome, toxic epidermal necrolysis, bullous pemphigoid EKG interpreted by me (3pts min.). @ -None done X-rays interpreted by me (1pt min.). @ -None done CT interpreted by me (1pt min.). @ -None done U/S interpreted by me (1pt. min.). @ -None done What testing was considered but not performed or refused? (CT, X-rays, U/S, labs)? Why? @ -None What meds were considered but not given or refused? Why? @ -None Was smoking cessation discussed for >3mins.? @ -No Were there social determinants of health that impacted care today? How? (Homelessness, low income, unemployed, alcoholism, drug addiction, transportation, low edu. Level, literacy, decrease access to med. care, snf, rehab)? @ -No Was there de-escalation of care discussed even if they declined (Discuss DNR or withdrawal of care, Hospice)? DNR status @ -No What co-morbidities impacted this encounter? (DM, HTN, Smoking, COPD, CAD, Cancer, CVA, ARF, Chemo, Hep., AIDS, mental health diagnosis, sleep apnea, morbid obesity)? @ -None Was patient admitted / discharged? Hospital course, mention meds given and route, prescriptions, significant lab abnormalities, going to OR and other pertinent info. @ -54-year-old female presents with worsening skin rash. She is covered in blisters of different appearing ages. Patient reports that her symptoms are acute. No obvious inciting event. She does not report any symptoms to suggest mucosal involvement. Vital signs stable. Laboratory evaluation is within acceptable limits. 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 Case discussed with hospitalist for admission Did you discuss the management of the patient with other professionals (professionals i.e. , PA, MAJOR ASSEMBLER, lab, RT, psych nurse, social worker health services, seismology technical officer, teacher, job placement officer, disability case manager)? Give summary @ -No Was critical care preformed (if so, how long)? @ -No Undiagnosed new problem with uncertain prognosis? @ -No Drug Therapy requiring intensive monitoring for toxicity (Heparin, Nitro, Insulin, Cardizem)? @ -No Were any procedures done? @ -No Diagnosis/symptom? Acute, or Chronic, or Acute on Chronic? Uncomplicated (without systemic symptoms) or Complicated (systemic symptoms)? @ -Walter-Curtis syndrome Side effects of treatment? @ -No Exacerbation, Progression, or Severe Exacerbation? @ -No Poses a threat to life or bodily function? How? (Chest pain, USA, CT, pneumonia, PE, COPD, DKA, ARF, appy, cholecystitis, CVA, Diverticulitis, Homicidal, Suicidal, threat to staff... and all critical care pts) @ -yes - Lab Data Result diagrams: 11/17/24 23:15 11/17/24 23:15 Lab Results 11/17/24 11/17/24 Range/Units 23:15 23:15 WBC 6.1 (3.8-10.6) k/uL RBC 3.84 (3.80-5.40) m/uL Hgb 11.1 L (11.4-16.0) gm/dL Hct 34.5 (34.0-46.0) % MCV 90.0 (80.0-100.0) fL MCH 29.0 (25.0-35.0) pg MCHC 32.2 (31.0-37.0) g/dL RDW 15.1 (11.5-15.5) % Plt Count 298 (150-450) k/uL MPV 7.2 Neutrophils % 66 % Lymphocytes % 12 % Monocytes % 6 % Eosinophils % 15 % Basophils % 0 % Neutrophils # 4.0 (1.3-7.7) k/uL Lymphocytes # 0.7 L (1.0-4.8) k/uL Monocytes # 0.4 (0-1.0) k/uL Eosinophils # 0.9 H (0-0.7) k/uL Basophils # 0.0 (0-0.2) k/uL Hypochromasia Moderate Sodium 134 L (137-145) mmol/L Potassium 4.0 (3.5-5.1) mmol/L Chloride 100 (98-107) mmol/L Carbon Dioxide 28 (22-30) mmol/L Anion Gap 6 mmol/L BUN 11 (7-17) mg/dL Creatinine 0.59 (0.52-1.04) mg/dL Est GFR (CKD-EPI)AfAm >90 (>60 ml/min/1.73 sqM) Est GFR (CKD-EPI)NonAf >90 (>60 ml/min/1.73 sqM) Glucose 98 (74-99) mg/dL Calcium 7.9 L (8.4-10.2) mg/dL Disposition Clinical Impression: SJS-TEN overlap syndrome Disposition: ADMITTED IP TO THIS HOSP Condition: Fair Referrals: Garth Auguste MD [Primary Care Provider] - 1-2 days Decision Time: 01:00
[2024-11-17 23:29] LABS: Basophils % (A) 0 %; Eosinophils # (A) 0.9 k/uL (0-0.7); Eosinophils % (A) 15 %; HCT 34.5 % (34.0-46.0); HGB 11.1 gm/dL (11.4-16.0); Hypochromasia Moderate; Lymphocytes # (A) 0.7 k/uL (1.0-4.8); Lymphocytes % (A) 12 %; MCHC 32.2 g/dL (31.0-37.0); Mean Platelet Volume 7.2; Monocytes # (A) 0.4 k/uL (0-1.0); Monocytes % (A) 6 %; Neutrophils % (A) 66 %; Platelet Count 298 k/uL (150-450); RBC 3.84 m/uL (3.80-5.40); RDW 15.1 % (11.5-15.5); WBC 6.1 k/uL (3.8-10.6)
[2024-11-17 23:39] LABS: African American GFR (CKD) >90 (>60 ml/min/1.73 sqM); Anion Gap 6 mmol/L; Blood Urea Nitrogen 11 mg/dL (7-17); Calcium 7.9 mg/dL (8.4-10.2); Carbon Dioxide 28 mmol/L (22-30); Chloride 100 mmol/L (98-107); Glucose 98 mg/dL (74-99); Non-African American GFR(CKD) >90 (>60 ml/min/1.73 sqM); Sodium 134 mmol/L (137-145)
[2024-11-18] MEDS ORDERED: NALOXONE 0.4 MG/ML 1 ML VIAL IV PRN (00:57)
[2024-11-18] MEDS: DEXAMETHASONE SOD PHOSPHATE 10 MG/ML 1 ML VIAL IV STA (02:55)
[2024-11-18] MEDS: SODIUM CHLORIDE 0.9% 1,000 ML IV SCH (02:56)
[2024-11-18] MEDS ORDERED: diphenhydrAMINE 25 MG CAP PO PRN (07:42)
--- NOTE | 2024-11-18 07:43 | P.HPIM ---
History of Present Illness This is a pleasant 54 years old female with past medical problem of multiple medical issues including history of coronary artery disease. Presents because of worsening rash over 1 week. The rash started on the blisters on her left shoulder and progressed gradually involving both lower extremities and groins both arms and elbows, also around the mouth. It is somewhat itchy but patient directed to age. She denies any vaginal lesion or mild lesion or mouth ulcers. Patient developed diarrhea for 2 days, twice daily. No chest pain or dyspnea. No urinary complaint no abdominal pain or vomiting. No headache dizziness weakness numbness. Patient denies smoking alcohol or illicit drugs. She saw her PCP Dr. Auguste about 1 week ago He prescribed her clindamycin for protection from secondary infection. Patient denies any recent history of infection or new medication use prior to development of the rash Patient is hemodynamically stable and afebrile. Blood pressure was 158/89 and currently 95/67. Hemoglobin 11.1. Rest of labs were unremarkable WBC is 6.1 and BNP is within the reference range No other labs or imaging. Patient received 1 dose of Decadron and placed on normal saline 75 mL/h Review of Systems Review of systems CONSTITUTIONAL: No fever, no malaise, no fatigue. HEENT: No recent visual problems or hearing problems. Denied any sore throat. CARDIOVASCULAR: No orthopnea, PND, no palpitations, no syncope. PULMONARY: No shortness of breath, no cough, no hemoptysis. GASTROINTESTINAL: No diarrhea, no nausea, no vomiting, no abdominal pain. Normoactive bowel sounds. NEUROLOGICAL: No headaches, no weakness, no numbness. HEMATOLOGICAL: Denies any bleeding or petechiae. GENITOURINARY: Denies any burning micturition, frequency, or urgency. MUSCULOSKELETAL/RHEUMATOLOGICAL: Denies any joint pain, swelling, or any muscle pain. ENDOCRINE: Denies any polyuria or polydipsia. 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 Covid History of Any Multi-Drug Resistant Organisms: None Reported Past Surgical History: Pacemaker Additional Past Surgical History / Comment(s): Bilateral eye surgery for glaucoma Past Anesthesia/Blood Transfusion Reactions: No Reported Reaction Type of Cardiac Device: Permanent Pacemaker Device Placement Date:: 2012 Past Psychological History: Anxiety, Depression Smoking Status: Never smoker Past Alcohol Use History: Occasional Past Drug Use History: None Reported - Past Family History Father Family Medical History: Coronary Artery Disease (CAD), Myocardial Infarction (GA) Additional Family Medical History / Comment(s): Father is 75 yrs old. He had a silent GA. Mother Additional Family Medical History / Comment(s): Mother is at 32 yrs d/t cardiomyopathy Medications and Allergies Home Medications Medication Instructions Recorded Confirmed Type Atorvastatin Calcium [Lipitor] 80 mg PO HS 03/08/14 09/10/21 History levETIRAcetam [Keppra] 1,500 mg PO BID 03/22/17 09/10/21 History Amiodarone [Cordarone] 200 mg PO DAILY 02/22/20 09/10/21 History carBAMazepine [TEGretol] 200 mg PO TID 02/22/20 09/10/21 History Apixaban [Eliquis] 5 mg PO BID 07/21/21 09/10/21 History Cholecalciferol [Vitamin D3 (125 125 mcg PO DAILY #30 tablet 07/22/21 09/10/21 Rx Mcg = 5000 Iu)] Artificial Tears-Hypromellose 1 drops BOTH EYES QID PRN #10 ml 10/21/21 Rx [Artificial Tear Drops] Metoprolol Tartrate [Lopressor] 25 mg PO BID #2 tab 10/21/21 Rx QUEtiapine [SEROquel] 50 mg PO BID #1 tab 10/21/21 Rx ALPRAZolam [Xanax] 0.5 mg PO TID PRN 3 Days #9 tab 10/28/21 Rx Magnesium Hydroxide [Milk of 2,400 mg PEG/G-TUBE DAILY PRN ml 10/28/21 Rx Magnesia Concentrate] bisacodyL [Dulcolax] 10 mg RECTAL DAILY PRN supp 10/28/21 Rx clindamycin HCL 300 mg PO QID #40 cap 07/03/23 Rx Sulfamethox-Tmp 800-160Mg [Bactrim 1 each PO Q12HR #14 tab 11/14/23 Rx Ds] Allergies Allergy/AdvReac Type Severity Reaction Status Date / Time cephalexin monohydrate Allergy Rash/Hives Verified 11/17/24 21:20 [From Keflex] Penicillins Allergy Anaphylaxis Verified 11/17/24 21:20 Physical Exam Vitals: Vital Signs Temp Pulse Resp BP Pulse Ox 11/18/24 06:49 88 16 95/67 96 11/18/24 03:00 99.6 F 86 20 110/92 100 11/17/24 21:18 97.8 F 105 H 17 158/89 100 Intake and Output 11/17/24 11/18/24 11/18/24 22:59 06:59 14:59 Other: Weight 63.503 kg GENERAL: The patient is alert and oriented x3, not in any acute distress. Well developed, well nourished. HEENT: Pupils are round and equally reacting to light. EOMI. No scleral icterus. No conjunctival pallor. Normocephalic, atraumatic. No pharyngeal erythema. No thyromegaly. CARDIOVASCULAR: S1 and S2 present. No murmurs, rubs, or gallops. PULMONARY: Chest is clear to auscultation, no wheezing , no crackles. ABDOMEN: Soft, nontender, nondistended, normoactive bowel sounds. No palpable organomegaly. MUSCULOSKELETAL: No joint swelling or deformity. EXTREMITIES: No cyanosis, clubbing, or pedal edema. NEUROLOGICAL: Gross neurological examination did not reveal any focal deficits. -SKIN: blistering rashes with superficial ulcers involving both upper and lower extremities, the bilateral groins and lower back and around the mouth. no petechiae. Results CBC & Chem 7: 11/17/24 23:15 11/17/24 23:15 Labs: Abnormal Lab Results - Last 24 Hours (Table) 11/17/24 11/17/24 Range/Units 23:15 23:15 Hgb 11.1 L (11.4-16.0) gm/dL Lymphocytes # 0.7 L (1.0-4.8) k/uL Eosinophils # 0.9 H (0-0.7) k/uL Sodium 134 L (137-145) mmol/L Calcium 7.9 L (8.4-10.2) mg/dL Assessment and Plan Assessment: Blistering rash covering both upper and lower extremities, lower back, bilateral groin and lower face around the mouth with no oral or mucous membrane involvement x 1 week. Suspicious for Calvin Curtis syndrome versus other. Associated with mild diarrhea Mild hypertension could be related to the diarrhea and the rash. Coronary artery disease Chronic heart failure, unknown ejection fraction History of CVA/TIA History of seizure disorder History of PE in 1994 after leg fracture Bilateral glaucoma Sick sinus syndrome status post pacemaker, permanent pacemaker History of anxiety of depression, not an active issue Plan: Continue with Intravenous hydration Benadryl for itching Patient is not much pain Wound care We do not have operations controller in this facility. I talked to the patient and she is agreeable to be transferred to tertiary care center. Patient request to be transferred to [facility], I called the transfer center at [facility] pending talking to the accepting physician Further recommendation based on the clinical course GI prophylaxis: Pepcid DVT prophylaxis: Subcutaneous heparin Prognosis is guarded
[2024-11-18] MEDS ORDERED: DEXTROSE 50% SYRINGE 50 ML IVP PRN ×2 (07:46)
[2024-11-18] MEDS: HEPARIN SODIUM,PORCINE 5,000 UNIT/ML 1 ML VIAL SQ SCH (08:55)
[2024-11-18] MEDS: CLINDAMYCIN 150 MG CAP PO SCH (08:57)
[2024-11-18] MEDS: FAMOTIDINE 20 MG/2 ML VIAL IV SCH (08:58)
[2024-11-18] MEDS: methylPREDNISolone SOD SUCCIN 500 MG in SODIUM CHLORIDE 0.9% 100 ML IVPB SCH (08:58)
[2024-11-18] MEDS ORDERED: METHYLPREDNISOLONE SOD SUCCIN IVPB SCH (09:30)
[2024-11-18] MEDS ORDERED: SODIUM CHLORIDE 0.9% IVPB SCH (09:30)
[2024-11-18] MEDS: methylPREDNISolone SOD SUCCIN 500 MG in SODIUM CHLORIDE 0.9% 100 ML IVPB ONE (09:31)
[2024-11-18 09:41] VITALS: BP 103/55; PULSE 89; RESP 18; TEMP 98.7
[2024-11-18] MEDS ORDERED: METOPROLOL TARTRATE 25 MG TAB PO SCH (10:00)
[2024-11-18] MEDS ORDERED: INSULIN LISPRO (HumaLOG) 100 UNIT/ML 10 mL VL SQ SCH (12:30)
[2024-11-18] MEDS ORDERED: GABAPENTIN 300 MG CAP PO SCH (16:00)
[2024-11-18] MEDS ORDERED: carBAMazepine 200 MG TAB PO SCH (16:00)
[2024-11-18] MEDS ORDERED: ATORVASTATIN 80 MG TAB PO SCH (21:00)
[2024-11-18] MEDS ORDERED: APIXABAN 5 MG TAB PO SCH (21:00)
[2024-11-18] MEDS ORDERED: QUEtiapine 25 MG TAB PO SCH (21:00)
[2024-11-19] MEDS ORDERED: FUROSEMIDE 20 MG TAB PO SCH (09:00)
[2024-11-19] MEDS ORDERED: AMIODARONE 200 MG TAB PO SCH (09:00)
[2024-11-19] MEDS ORDERED: methylPREDNISolone SOD SUCCIN 1,000 MG in SODIUM CHLORIDE 0.9% 250 ML IVPB SCH (09:00)
== END 2024-11-18 09:32 | disposition short-term general hospital, planned readmission (82) ==
LOC: EC 21:15 → 6NMEDSUR 11-18 00:59
PROVIDERS: ADMIT Hospitalist; ATTEND Hospitalist
DX: R21 Rash and other nonspecific skin eruption (principal); R19.7 Diarrhea, unspecified; I25.10 Atherosclerotic heart disease of native coronary artery without angina pectoris; I50.9 Heart failure, unspecified; I69.354 Hemiplegia and hemiparesis following cerebral infarction affecting left non-dominant side; I42.9 Cardiomyopathy, unspecified; F41.9 Anxiety disorder, unspecified; G40.909 Epilepsy, unspecified, not intractable, without status epilepticus; F32.A Depression, unspecified; H40.9 Unspecified glaucoma; I49.5 Sick sinus syndrome; Z79.01 Long term (current) use of anticoagulants; Z79.899 Other long term (current) drug therapy; Z86.711 Personal history of pulmonary embolism; Z95.0 Presence of cardiac pacemaker; Z88.0 Allergy status to penicillin; Z88.1 Allergy status to other antibiotic agents
CPT/HCPCS: 96372; 96374; 96375; 99283; 36415; 80048; 85025; G0378; J1644; J1100; J3490; J2919

== ENCOUNTER 2025-02-11 16:49 | Emergency (ER) | payer MEDICARE ==
[2025-02-11 16:53] VITALS: RESP 18
--- NOTE | 2025-02-11 17:30 | ED ---
Skin/Abscess/FB HPI - General Chief complaint: Skin/Abscess/Foreign Body Stated complaint: blisters Time Seen by Provider: 02/11/25 17:02 Source: patient, RN notes reviewed Mode of arrival: ambulatory Limitations: no limitations - History of Present Illness Initial comments: This is a 54-year-old female with history including CAD, heart failure, CVA, PE presenting for numerous lesions/sores across her body for the past 7 weeks. Patient states she was recently diagnosed with bullous pemphigoid by a bander operator, receiving immunosuppressant medication and clobetasol cream, noting ongoing symptoms. Denies fever, chills, mucous membrane sloughing. MD complaint: abscess/boil, lesion Onset/Timin -: week(s) - Related Data Home Medications Medication Instructions Recorded Confirmed Atorvastatin Calcium [Lipitor] 80 mg PO HS 03/08/14 11/18/24 levETIRAcetam [Keppra] 1,500 mg PO BID 03/22/17 11/18/24 Amiodarone [Cordarone] 200 mg PO DAILY 02/22/20 11/18/24 carBAMazepine [TEGretol] 200 mg PO TID 02/22/20 11/18/24 Apixaban [Eliquis] 5 mg PO BID 07/21/21 11/18/24 Furosemide [Lasix] 20 mg PO DAILY 11/18/24 11/18/24 Gabapentin 600 mg PO TID 11/18/24 11/18/24 QUEtiapine [SEROquel] 25 mg PO BID 11/18/24 11/18/24 clindamycin HCL [Cleocin] 300 mg PO QID 11/18/24 11/18/24 Previous Rx's Medication Instructions Recorded Metoprolol Tartrate [Lopressor] 25 mg PO BID #2 tab 10/21/21 Doxycycline [Vibramycin] 100 mg PO BID #28 capsule 02/11/25 Mupirocin 2% Oint [Bactroban 2% 1 applic TOPICAL TID #30 gm 02/11/25 Oint] predniSONE See Rx Instructions .ROUTE 02/11/25 .COMPLEX #30 tab Allergies Allergy/AdvReac Type Severity Reaction Status Date / Time cephalexin monohydrate Allergy Rash/Hives Verified 02/11/25 16:53 [From Keflex] Penicillins Allergy Anaphylaxis Verified 02/11/25 16:53 Review of Systems ROS Statement: Those systems with pertinent positive or pertinent negative responses have been documented in the HPI. ROS Other: All systems not noted in ROS Statement are negative. 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 Covid History of Any Multi-Drug Resistant Organisms: None Reported Past Surgical History: Pacemaker Additional Past Surgical History / Comment(s): Bilateral eye surgery for glaucoma Past Anesthesia/Blood Transfusion Reactions: No Reported Reaction Type of Cardiac Device: Permanent Pacemaker Device Placement Date:: 2012 Past Psychological History: Anxiety, Depression Smoking Status: Never smoker Past Alcohol Use History: Occasional Past Drug Use History: None Reported - Past Family History Father Family Medical History: Coronary Artery Disease (CAD), Myocardial Infarction (PR) Additional Family Medical History / Comment(s): Father is 75 yrs old. He had a silent PR. Mother Additional Family Medical History / Comment(s): Mother is at 32 yrs d/t cardiomyopathy General Exam Limitations: no limitations General appearance: alert, in no apparent distress Head exam: Present: atraumatic, normocephalic, normal inspection Eye exam: Present: normal appearance, PERRL, EOMI. Absent: scleral icterus, conjunctival injection, periorbital swelling ENT exam: Present: normal exam, mucous membranes moist Neck exam: Present: normal inspection. Absent: tenderness, meningismus, lymphadenopathy Respiratory exam: Present: normal lung sounds bilaterally. Absent: respiratory distress, wheezes, rales, rhonchi, stridor Cardiovascular Exam: Present: regular rate, normal rhythm, normal heart sounds. Absent: systolic murmur, diastolic murmur, rubs, gallop, clicks GI/Abdominal exam: Present: soft, normal bowel sounds. Absent: distended, tenderness, guarding, rebound, rigid Extremities exam: Present: normal inspection, full ROM, normal capillary refill. Absent: tenderness, pedal edema, joint swelling, calf tenderness Back exam: Present: normal inspection Neurological exam: Present: alert, oriented X3, CN II-XII intact Psychiatric exam: Present: normal affect, normal mood Skin exam: Present: warm, other (Numerous circular ulcers/abrasions with surrounding erythema noted across body, especially BLE, with lichenification of skin. Negative obvious discharge, abscesses, blistering, sloughing.). Absent: intact, normal color, rash Course Vital Signs 02/11/25 02/11/25 16:50 18:26 Temperature 98.4 F 98.0 F Pulse Rate 104 H 99 Respiratory 18 18 Rate Blood Pressure 110/73 111/68 O2 Sat by Pulse 99 99 Oximetry Medical Decision Making - Medical Decision Making Was pt. sent in by a medical professional or institution (, PA, SUPERINTENDENT CONSTRUCTION, urgent care, hospital, or shelter...) When possible be specific @ -No Did you speak to anyone other than the patient for history (EMS, parent, family, police, friend...)? What history was obtained from this source @ -No Did you review nursing and triage notes (agree or disagree)? Why? @ -I reviewed and agree with nursing and triage notes Were old charts reviewed (outside hosp., previous admission, EMS record, old EKG, old radiological studies, urgent care reports/EKG's, shelter records)? Report findings @ -No old charts were reviewed Differential Diagnosis (chest pain, altered mental status, abdominal pain women, abdominal pain men, vaginal bleeding, weakness, fever, dyspnea, syncope, headache, dizziness, GI bleed, back pain, seizure, CVA, palpatations, mental health, musculoskeletal)? @ -Bullous pemphigoid, pemphigus vulgaris, dermatitis herpetiformis, bullous drug eruption, severe insect bite reaction, linear IgA dermatosis, cellulitis, MRSA, erysipelas, this is not an exhaustive list EKG interpreted by me (3pts min.). @ -Not done X-rays interpreted by me (1pt min.). @ -None done CT interpreted by me (1pt min.). @ -None done U/S interpreted by me (1pt. min.). @ -None done What testing was considered but not performed or refused? (CT, X-rays, U/S, labs)? Why? @ -None What meds were considered but not given or refused? Why? @ -None Did you discuss the management of the patient with other professionals (professionals i.e. Dr., PA, SUPERINTENDENT CONSTRUCTION, lab, RT, psych nurse, social service technician, cut off sawyer, teacher, credit officer, caseworker intake)? Give summary @ -No Was smoking cessation discussed for >3mins.? @ -No Was critical care preformed (if so, how long)? @ -No Were there social determinants of health that impacted care today? How? (Homelessness, low income, unemployed, alcoholism, drug addiction, transportation, low edu. Level, literacy, decrease access to med. care, [place] [facility], rehab)? @ -No Was there de-escalation of care discussed even if they declined (Discuss DNR or withdrawal of care, Hospice)? DNR status @ -No What co-morbidities impacted this encounter? (DM, HTN, Smoking, COPD, CAD, Cancer, CVA, ARF, Chemo, Hep., AIDS, mental health diagnosis, sleep apnea, morbid obesity)? @ -None Was patient admitted / discharged? Hospital course, mention meds given and route, prescriptions, significant lab abnormalities, going to OR and other pertinent info. @ -Patient provided IM tetanus, Solu-Medrol and p.o. doxycycline. Prednisone, doxycycline and mupirocin ointment sent to patient's pharmacy. Advised follow- up with wound care clinic for daily dressing changes and PCP/dermatology long- term management of condition. Discussed patient with Dr. Khan. Undiagnosed new problem with uncertain prognosis? @ -No Drug Therapy requiring intensive monitoring for toxicity (Heparin, Nitro, Insulin, Cardizem)? @ -No Were any procedures done? @ -No Diagnosis/symptom? @ -Bullous pemphigoid Acute, or Chronic, or Acute on Chronic? @ -Acute Uncomplicated (without systemic symptoms) or Complicated (systemic symptoms)? @ -Uncomplicated Side effects of treatment? @ -No Exacerbation, Progression, or Severe Exacerbation? @ -Progression Poses a threat to life or bodily function? How? (Chest pain, USA, PR, pneumonia, PE, COPD, DKA, ARF, appy, cholecystitis, CVA, Diverticulitis, Homicidal, Suicidal, threat to staff... and all critical care pts) @ -No Disposition Clinical Impression: Bullous pemphigoid Disposition: HOME SELF-CARE Condition: Fair Instructions (If sedation given, give patient instructions): Acute Wound Care (ED), Chronic Wound Care (ED) Additional Instructions: Keep exposed areas of skin clean with antibacterial soap and water, application of antibacterial ointment and dressing change at least twice daily. Follow-up with wound care clinic for long-term management of lesions. Follow-up with dermatology for ongoing medication management of condition. Prescriptions: Mupirocin 2% Oint [Bactroban 2% Oint] 1 applic TOPICAL TID #30 gm predniSONE See Rx Instructions .ROUTE .COMPLEX #30 tab Doxycycline [Vibramycin] 100 mg PO BID #28 capsule Is patient prescribed a controlled substance at d/c from ED?: No Referrals: Garth Auguste MD [Primary Care Provider] - 1-2 days Monica Allen MD [STAFF PHYSICIAN] - 1-2 days Time of Disposition: 18:00
[2025-02-11] MEDS: DIPH,PERTUS(ACELL)TETVAC-LF 0.5 ML VIAL IM ONE (17:34)
[2025-02-11] MEDS: DOXYCYCLINE 100 MG TABLET PO ONE (17:36)
[2025-02-11] MEDS: methylPREDNISolone SOD SUCCI 125 MG/2 ML VIAL IM ONE (17:37)
[2025-02-11 18:28] VITALS: BP 111/68; PULSE 99; TEMP 98
== END 2025-02-11 18:29 | disposition home or self-care (01) ==
LOC: EC 16:49
DX: L12.0 Bullous pemphigoid (principal); I25.10 Atherosclerotic heart disease of native coronary artery without angina pectoris; Z23 Encounter for immunization; Z88.0 Allergy status to penicillin; Z88.1 Allergy status to other antibiotic agents
CPT/HCPCS: 90715; 99282; 90471; 96372; J2919

== ENCOUNTER 2025-02-20 09:23 | Inpatient (IN) | payer MEDICARE ==
[2025-02-20 10:09] LABS: Basophils # (A) 0.03 10*3/uL (0.00-0.10); Basophils % (A) 0.3 %; Eosinophils # (A) 0.11 10*3/uL (0.04-0.35); Eosinophils % (A) 1.3 %; HCT 34.9 % (37.2-46.3); HGB 10.5 g/dL (12.0-15.0); Lymphocytes # (A) 0.85 10*3/uL (0.90-5.00); Lymphocytes % (A) 9.8 %; MCH 27.4 pg (27.0-32.0); MCHC 30.1 g/dL (32.0-37.0); MCV 91.1 fL (80.0-97.0); Monocytes # (A) 0.56 10*3/uL (0.20-1.00); Monocytes % (A) 6.5 %; Neutrophils # (A) 7.05 10*3/uL (1.80-7.70); Neutrophils % (A) 81.8 %; Platelet Count 451 10*3/uL (140-440); RBC 3.83 10*6/uL (4.10-5.20); RDW 17.1 % (11.5-14.5); WBC 8.63 10*3/uL (4.50-10.00)
[2025-02-20 10:54] LABS: ALT 21 U/L (4-34); AST 26 U/L (14-36); African American GFR (CKD) >90 (>60 ml/min/1.73 sqM); Albumin 2.7 g/dL (3.5-5.0); Alkaline Phosphatase 75 U/L (38-126); Anion Gap 9 mmol/L; Blood Urea Nitrogen 16 mg/dL (7-17); Calcium 8.5 mg/dL (8.4-10.2); Carbon Dioxide 26 mmol/L (22-30); Chloride 103 mmol/L (98-107); Glucose 171 mg/dL (74-99); Non-African American GFR(CKD) >90 (>60 ml/min/1.73 sqM); Potassium 3.9 mmol/L (3.5-5.1); Sodium 138 mmol/L (137-145); Total Protein 5.9 g/dL (6.3-8.2)
[2025-02-20 13:01] LABS: Creatine Kinase 64 U/L (30-135)
[2025-02-20 13:11] LABS: NT-Pro-B-Type Natriuretic Pept 1740 pg/mL
--- NOTE | 2025-02-20 13:28 | XR ---
EXAMINATION TYPE: XR chest 2V DATE OF EXAM: 02/20/2025 1:21 PM COMPARISON: 10/19/2021 CLINICAL INDICATION: Female, 54 years old with history of altered mental status, confusion TECHNIQUE: AP and lateral views FINDINGS: Left anterior chest wall ICD generator with right ventricular lead. Heart upper limits of normal in s ize. There is mild interstitial prominence. No consolidation or pleural effusion. IMPRESSION: Mild interstitial prominence may be chronic. Correlate to exclude mild pulmonary vascular congestion. Otherwise, no acute process seen. [facility], , 02/20/2025 1:25 PM
--- NOTE | 2025-02-20 13:58 | CT ---
EXAMINATION TYPE: CT brain wo con CT DLP: 337.7 mGycm, Automated exposure control for dose reduction was used. DATE OF EXAM: 02/20/2025 1:42 PM COMPARISON: CT brain 09/25/2021, 09/16/2021, 09/10/2021, 07/22/2021, 07/21/2021 CLINICAL INDICATION:Female, 54 years old with history of Neuro deficit, acute, stroke suspected, WEAK NESS. HX OF CVA. TECHNIQUE: Brain: Multiple axial CT images of the brain were obtained without IV contrast. . Coronal and sagitta l reformats reviewed. FINDINGS: Brain: Extra-axial spaces: No abnormal extra-axial fluid collections. Ventricular system: Ex vacuo dilatation of the right lateral ventricle. Cerebral parenchyma: No acute intraparenchymal hemorrhage or mass effect. Remote large right MCA ter ritory infarct redemonstrated. There is involvement of the right insula. Remote appearing near CSF at tenuation left frontal lobe encephalomalacia from prior injury. Scattered hypoattenuating areas are s een within the periventricular white matter. Cerebellum: Small remote bilateral cerebellar injuries with encephalomalacia. Mass effect: No evidence of midline shift. Intracranial vasculature: Atherosclerotic calcifications of the intracranial vessels. Soft tissues: Normal. Calvarium/osseous structures: No depressed skull fracture. Paranasal sinuses and mastoid air cells: The bilateral mastoid air cells are clear. Mild mucosal thic kening of the left maxillary sinus with debris. The remaining paranasal sinuses are clear. Aplasia of the bilateral frontal sinuses. Visualized orbits: Orbital contents are intact. IMPRESSION: 1. No acute intracranial process. Consider further evaluation with MRI as clinically indicated. 2. Remote right large MCA territory infarct with encephalomalacia again. Remote left frontal lobe inf arct with encephalomalacia. Additional small regions of encephalomalacia from prior injury involving the bilateral cerebellum. 3. Nonspecific white matter changes, likely secondary to chronic small vessel ischemic disease. [facility], , 02/20/2025 1:56 PM
--- NOTE | 2025-02-20 14:06 | CT ---
EXAMINATION TYPE: CT angio head neck CT DLP: 337.7 mGycm, Automated exposure control for dose reduction was used. DATE OF EXAM: 02/20/2025 1:42 PM COMPARISON: CT brain 02/20/2025, 09/25/2021, 09/16/2021, 09/10/2021, CTA head and Neck 07/22/2021. CLINICAL INDICATION:Female, 54 years old with history of Neuro deficit, acute, stroke suspected; PHH, WEAKNESS. HX OF CVA. TECHNIQUE: Axially acquired helical CT angiogram of the head and neck was obtained with contrast util izing 75 cc of Isovue-370 administered intravenously. Axial images are supplemented with 3D reconstru ctions which were post-processed at an independent workstation. NASCET criteria used. MIP imaging performed on a separate workstation and submitted for review. FINDINGS: CTA HEAD: No evidence of acute intracranial hemorrhage, mass effect, or midline shift. The ventricles, sulci, a nd cisterns are unremarkable. The visualized portions of the internal carotid arteries, middle cerebral arteries, anterior cerebral arteries, and posterior cerebral arteries are patent. Similar hypoplastic appearance of the A1 segme nt of the left EHSAN. origin of the bilateral FAMILY INTERVENTION SPECIALIST. The basilar and vertebral arteries are patent. CTA NECK: Right Carotid System: The common carotid artery and external carotid artery are patent. Minimal calcified plaque at the car otid bifurcation and extending into the proximal internal carotid artery. The carotid bifurcation dem onstrates no evidence of hemodynamically significant stenosis. Moderate amount of plaque involving th e cavernous portion of the internal carotid artery resulting in at least moderate stenosis. Left Carotid System: The common carotid artery and external carotid artery are patent. The carotid bifurcation demonstrate s no evidence of hemodynamically significant stenosis. Moderate amount of plaque involving the cavern ous portion of the internal carotid artery resulting in at least moderate stenosis. Vertebral arteries are patent without evidence hemodynamically significant stenosis. The vertebral ar teries are codominant. There is a three-vessel aortic arch. The origins of the great vessels are patent. Mild stenosis secon fili to calcified plaque at the origin of the right subclavian artery. Partial visualization of left anterior chest cardiac AICD. Right lower lobe subpleural atelectasis. M ultilevel degenerative disc disease of the cervical spine. Left thyroid lobe macrocalcification. IMPRESSION: 1. No evidence of dissection of the cervical internal carotid arteries or vertebral arteries or any e vidence of significant stenosis at the carotid bifurcations. 2. Moderate stenosis involving the cavernous portions of the internal carotid arteries bilaterally se condary to calcified plaque. 3. No evidence of intracranial aneurysm. [facility], , 02/20/2025 2:03 PM
--- NOTE | 2025-02-20 15:20 | ED ---
Weakness HPI - General Chief complaint: Weakness Stated complaint: Difficulty walking Time Seen by Provider: 02/20/25 12:05 Source: patient Mode of arrival: ambulatory Limitations: no limitations - History of Present Illness Initial comments: 54-year-old female with past medical history of bullous pemphigoid on prednisone who presents to the emergency department with weakness. Daughters are at bedside and help supplement the history. States that they were called to the patient's house by her for weakness. The patient sustained a fall earli er this morning. Patient reports that due to weakness which was acute onset in her left lower extremity. She does have a history of stroke that affected her left side. States that she does have contracture of the left upper extremity and this is chronic however reports to worsening weakness in the left leg. Family reported to some slurred speech. Slurred speech is resolved. He continues to feel weak in her left leg. Patient also has significant lower extremity edema. Patient is supposed to be on Lasix however was taken off when she got diagnosed with bullous pemphigoid. She reports she has been trying to talk to her hand trimmer about a new diuretic however she is not receiving a ca ll back. She denies shortness of breath. No fevers. Patient follows with Dr. Allen for her bullous pemphigoid. She denies any chest pain. No other alleviating, precipitating or modifying factors - Related Data Home Medications Medication Instructions Recorded Confirmed Atorvastatin Calcium [Lipitor] 80 mg PO DAILY 03/08/14 02/20/25 levETIRAcetam [Keppra] 1,500 mg PO BID 03/22/17 02/20/25 Amiodarone [Cordarone] 200 mg PO DAILY 02/22/20 02/20/25 carBAMazepine [TEGretol] 200 mg PO TID 02/22/20 02/20/25 Apixaban [Eliquis] 5 mg PO BID 07/21/21 02/20/25 Gabapentin 600 mg PO TID 11/18/24 02/20/25 QUEtiapine [SEROquel] 25 mg PO BID 11/18/24 02/20/25 Dupilumab [Dupixent Pen] 300 mg SQ Q14D 02/20/25 02/20/25 Vitamin C (Unknown Strength) 1 dose PO DAILY 02/20/25 02/20/25 Vitamin D3 (Unknown Strength) 1 dose PO DAILY 02/20/25 02/20/25 predniSONE See Taper PO DIRECTED 02/20/25 02/20/25 Previous Rx's Medication Instructions Recorded Doxycycline [Vibramycin] 100 mg PO BID #28 capsule 02/11/25 Mupirocin 2% Oint [Bactroban 2% 1 applic TOPICAL TID #30 gm 02/11/25 Oint] Allergies Allergy/AdvReac Type Severity Reaction Status Date / Time cephalexin monohydrate Allergy Rash/Hives Verified 02/20/25 13:58 [From Keflex] Penicillins Allergy Anaphylaxis Verified 02/20/25 13:58 Review of Systems ROS Statement: Those systems with pertinent positive or pertinent negative responses have been documented in the HPI. ROS Other: All systems not noted in ROS Statement are negative. 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 Covid History of Any Multi-Drug Resistant Organisms: None Reported Past Surgical History: Pacemaker Additional Past Surgical History / Comment(s): Bilateral eye surgery for glaucoma Past Anesthesia/Blood Transfusion Reactions: No Reported Reaction Type of Cardiac Device: Permanent Pacemaker Device Placement Date:: 2012 Past Psychological History: Anxiety, Depression Smoking Status: Never smoker Past Alcohol Use History: Occasional Past Drug Use History: None Reported - Past Family History Father Family Medical History: Coronary Artery Disease (CAD), Myocardial Infarction (MO) Additional Family Medical History / Comment(s): Father is 75 yrs old. He had a silent MO. Mother Additional Family Medical History / Comment(s): Mother is at 32 yrs d/t cardiomyopathy General Exam Limitations: no limitations General appearance: alert, in no apparent distress Head exam: Present: atraumatic, normocephalic, normal inspection Eye exam: Present: normal appearance, PERRL, EOMI. Absent: scleral icterus, conjunctival injection, periorbital swelling ENT exam: Present: normal exam, mucous membranes moist Neck exam: Present: normal inspection. Absent: tenderness, meningismus, lymphadenopathy Respiratory exam: Present: normal lung sounds bilaterally. Absent: respiratory distress, wheezes, rales, rhonchi, stridor Cardiovascular Exam: Present: normal rhythm, tachycardia, normal heart sounds. Absent: systolic murmur, diastolic murmur, rubs, gallop, clicks GI/Abdominal exam: Present: soft, normal bowel sounds. Absent: distended, tenderness, guarding, rebound, rigid Extremities exam: Present: full ROM, normal capillary refill, pedal edema (Lateral lower extremities with open wounds). Absent: tenderness, joint swelling, calf tenderness Back exam: Present: normal inspection Neurological exam: Present: alert, oriented X3, CN II-XII intact Psychiatric exam: Present: normal affect, normal mood Skin exam: Present: warm, dry, rash (Diffuse rash with open skin) Course Vital Signs 02/20/25 02/20/25 02/20/25 09:29 12:24 13:00 Temperature 97.7 F 98 F Pulse Rate 110 H 100 80 Pulse Rate [ Upset Welding Machine Operator ] Pulse Rate [ Sitting Upset Welding Machine Operator] Pulse Rate [ Standing Upset Welding Machine Operator ] Pulse Rate [ Supine Upset Welding Machine Operator] Respiratory 18 20 20 Rate Blood Pressure 139/74 140/79 130/76 Blood Pressure [Right Arm Sitting] Blood Pressure [Right Arm Standing] Blood Pressure [Right Arm Supine] Blood Pressure [Right Arm] O2 Sat by Pulse 100 100 98 Oximetry 02/20/25 02/20/25 02/20/25 14:00 14:54 16:32 Temperature Pulse Rate 80 80 99 Pulse Rate [ Upset Welding Machine Operator ] Pulse Rate [ Sitting Upset Welding Machine Operator] Pulse Rate [ Standing Upset Welding Machine Operator ] Pulse Rate [ Supine Upset Welding Machine Operator] Respiratory 20 20 18 Rate Blood Pressure 100/70 110/60 114/66 Blood Pressure [Right Arm Sitting] Blood Pressure [Right Arm Standing] Blood Pressure [Right Arm Supine] Blood Pressure [Right Arm] O2 Sat by Pulse 98 95 99 Oximetry 02/20/25 02/20/25 02/20/25 18:46 20:00 22:00 Temperature Pulse Rate 97 Pulse Rate [ 104 H Upset Welding Machine Operator ] Pulse Rate [ 110 H Sitting Upset Welding Machine Operator] Pulse Rate [ 116 H Standing Upset Welding Machine Operator ] Pulse Rate [ 105 H Supine Upset Welding Machine Operator] Respiratory 18 12 Rate Blood Pressure 94/63 Blood Pressure 104/71 [Right Arm Sitting] Blood Pressure 86/66 [Right Arm Standing] Blood Pressure 108/70 [Right Arm Supine] Blood Pressure 112/55 [Right Arm] O2 Sat by Pulse 98 95 Oximetry 02/21/25 02/21/25 02/21/25 00:30 04:00 06:40 Temperature Pulse Rate Pulse Rate [ 102 H 109 H Upset Welding Machine Operator ] Pulse Rate [ Sitting Upset Welding Machine Operator] Pulse Rate [ Standing Upset Welding Machine Operator ] Pulse Rate [ Supine Upset Welding Machine Operator] Respiratory 18 18 Rate Blood Pressure Blood Pressure [Right Arm Sitting] Blood Pressure [Right Arm Standing] Blood Pressure [Right Arm Supine] Blood Pressure 99/58 99/58 99/50 [Right Arm] O2 Sat by Pulse 95 95 Oximetry 02/21/25 02/21/25 02/21/25 09:50 10:00 10:10 Temperature Pulse Rate 107 H 109 H 109 H Pulse Rate [ Upset Welding Machine Operator ] Pulse Rate [ Sitting Upset Welding Machine Operator] Pulse Rate [ Standing Upset Welding Machine Operator ] Pulse Rate [ Supine Upset Welding Machine Operator] Respiratory 13 18 16 Rate Blood Pressure 99/50 99/50 99/50 Blood Pressure [Right Arm Sitting] Blood Pressure [Right Arm Standing] Blood Pressure [Right Arm Supine] Blood Pressure [Right Arm] O2 Sat by Pulse Oximetry 02/21/25 02/21/25 02/21/25 10:17 10:20 10:30 Temperature Pulse Rate 107 H 108 H 117 H Pulse Rate [ Upset Welding Machine Operator ] Pulse Rate [ Sitting Upset Welding Machine Operator] Pulse Rate [ Standing Upset Welding Machine Operator ] Pulse Rate [ Supine Upset Welding Machine Operator] Respiratory 18 15 13 Rate Blood Pressure 99/59 99/59 99/59 Blood Pressure [Right Arm Sitting] Blood Pressure [Right Arm Standing] Blood Pressure [Right Arm Supine] Blood Pressure [Right Arm] O2 Sat by Pulse 96 84 L 93 L Oximetry 02/21/25 02/21/25 02/21/25 10:40 10:50 11:00 Temperature Pulse Rate 109 H 117 H 114 H Pulse Rate [ Upset Welding Machine Operator ] Pulse Rate [ Sitting Upset Welding Machine Operator] Pulse Rate [ Standing Upset Welding Machine Operator ] Pulse Rate [ Supine Upset Welding Machine Operator] Respiratory 21 19 19 Rate Blood Pressure 99/59 99/59 99/59 Blood Pressure [Right Arm Sitting] Blood Pressure [Right Arm Standing] Blood Pressure [Right Arm Supine] Blood Pressure [Right Arm] O2 Sat by Pulse 95 96 97 Oximetry 02/21/25 02/21/25 02/21/25 11:10 11:20 11:30 Temperature Pulse Rate 114 H 112 H 112 H Pulse Rate [ Upset Welding Machine Operator ] Pulse Rate [ Sitting Upset Welding Machine Operator] Pulse Rate [ Standing Upset Welding Machine Operator ] Pulse Rate [ Supine Upset Welding Machine Operator] Respiratory 18 12 17 Rate Blood Pressure 99/59 99/59 99/59 Blood Pressure [Right Arm Sitting] Blood Pressure [Right Arm Standing] Blood Pressure [Right Arm Supine] Blood Pressure [Right Arm] O2 Sat by Pulse 96 97 95 Oximetry 02/21/25 02/21/25 02/21/25 11:40 11:50 12:00 Temperature Pulse Rate 109 H 108 H 110 H Pulse Rate [ Upset Welding Machine Operator ] Pulse Rate [ Sitting Upset Welding Machine Operator] Pulse Rate [ Standing Upset Welding Machine Operator ] Pulse Rate [ Supine Upset Welding Machine Operator] Respiratory 8 L 10 L 13 Rate Blood Pressure 99/59 99/59 99/59 Blood Pressure [Right Arm Sitting] Blood Pressure [Right Arm Standing] Blood Pressure [Right Arm Supine] Blood Pressure [Right Arm] O2 Sat by Pulse 94 L 92 L 92 L Oximetry 02/21/25 02/21/25 02/21/25 12:10 12:20 12:30 Temperature Pulse Rate 112 H 112 H 105 H Pulse Rate [ Upset Welding Machine Operator ] Pulse Rate [ Sitting Upset Welding Machine Operator] Pulse Rate [ Standing Upset Welding Machine Operator ] Pulse Rate [ Supine Upset Welding Machine Operator] Respiratory 19 15 16 Rate Blood Pressure 99/59 99/59 99/59 Blood Pressure [Right Arm Sitting] Blood Pressure [Right Arm Standing] Blood Pressure [Right Arm Supine] Blood Pressure [Right Arm] O2 Sat by Pulse 92 L 93 L 92 L Oximetry 02/21/25 02/21/25 02/21/25 12:40 12:50 13:00 Temperature Pulse Rate 120 H 117 H 114 H Pulse Rate [ Upset Welding Machine Operator ] Pulse Rate [ Sitting Upset Welding Machine Operator] Pulse Rate [ Standing Upset Welding Machine Operator ] Pulse Rate [ Supine Upset Welding Machine Operator] Respiratory 6 L 14 0 L Rate Blood Pressure 99/59 99/59 99/59 Blood Pressure [Right Arm Sitting] Blood Pressure [Right Arm Standing] Blood Pressure [Right Arm Supine] Blood Pressure [Right Arm] O2 Sat by Pulse 93 L Oximetry 02/21/25 02/21/25 02/21/25 13:10 13:20 13:30 Temperature Pulse Rate 118 H 115 H 117 H Pulse Rate [ Upset Welding Machine Operator ] Pulse Rate [ Sitting Upset Welding Machine Operator] Pulse Rate [ Standing Upset Welding Machine Operator ] Pulse Rate [ Supine Upset Welding Machine Operator] Respiratory 6 L 13 9 L Rate Blood Pressure 99/59 99/59 99/59 Blood Pressure [Right Arm Sitting] Blood Pressure [Right Arm Standing] Blood Pressure [Right Arm Supine] Blood Pressure [Right Arm] O2 Sat by Pulse Oximetry 02/21/25 02/21/25 02/21/25 13:40 13:50 13:55 Temperature Pulse Rate 112 H 111 H 113 H Pulse Rate [ Upset Welding Machine Operator ] Pulse Rate [ Sitting Upset Welding Machine Operator] Pulse Rate [ Standing Upset Welding Machine Operator ] Pulse Rate [ Supine Upset Welding Machine Operator] Respiratory 6 L 10 L 18 Rate Blood Pressure 99/59 99/59 98/59 Blood Pressure [Right Arm Sitting] Blood Pressure [Right Arm Standing] Blood Pressure [Right Arm Supine] Blood Pressure [Right Arm] O2 Sat by Pulse 97 Oximetry 02/21/25 02/21/25 02/21/25 14:00 14:10 14:20 Temperature Pulse Rate 112 H 114 H 108 H Pulse Rate [ Upset Welding Machine Operator ] Pulse Rate [ Sitting Upset Welding Machine Operator] Pulse Rate [ Standing Upset Welding Machine Operator ] Pulse Rate [ Supine Upset Welding Machine Operator] Respiratory 4 L 10 L 3 L Rate Blood Pressure 98/57 98/57 98/57 Blood Pressure [Right Arm Sitting] Blood Pressure [Right Arm Standing] Blood Pressure [Right Arm Supine] Blood Pressure [Right Arm] O2 Sat by Pulse 93 L 94 L 93 L Oximetry 02/21/25 02/21/25 02/21/25 14:30 14:40 14:50 Temperature Pulse Rate 107 H 116 H 112 H Pulse Rate [ Upset Welding Machine Operator ] Pulse Rate [ Sitting Upset Welding Machine Operator] Pulse Rate [ Standing Upset Welding Machine Operator ] Pulse Rate [ Supine Upset Welding Machine Operator] Respiratory 0 L 6 L 17 Rate Blood Pressure 98/57 98/57 98/57 Blood Pressure [Right Arm Sitting] Blood Pressure [Right Arm Standing] Blood Pressure [Right Arm Supine] Blood Pressure [Right Arm] O2 Sat by Pulse 93 L 94 L 92 L Oximetry 02/21/25 02/21/25 02/21/25 15:00 15:10 15:20 Temperature Pulse Rate 112 H 107 H 114 H Pulse Rate [ Upset Welding Machine Operator ] Pulse Rate [ Sitting Upset Welding Machine Operator] Pulse Rate [ Standing Upset Welding Machine Operator ] Pulse Rate [ Supine Upset Welding Machine Operator] Respiratory 18 9 L 25 H Rate Blood Pressure 98/57 98/57 98/57 Blood Pressure [Right Arm Sitting] Blood Pressure [Right Arm Standing] Blood Pressure [Right Arm Supine] Blood Pressure [Right Arm] O2 Sat by Pulse 93 L 93 L 93 L Oximetry 02/21/25 02/21/25 02/21/25 15:30 15:40 15:50 Temperature Pulse Rate 110 H 109 H 113 H Pulse Rate [ Upset Welding Machine Operator ] Pulse Rate [ Sitting Upset Welding Machine Operator] Pulse Rate [ Standing Upset Welding Machine Operator ] Pulse Rate [ Supine Upset Welding Machine Operator] Respiratory 21 5 L 11 L Rate Blood Pressure 98/57 98/57 98/57 Blood Pressure [Right Arm Sitting] Blood Pressure [Right Arm Standing] Blood Pressure [Right Arm Supine] Blood Pressure [Right Arm] O2 Sat by Pulse Oximetry 02/21/25 02/21/25 02/21/25 16:00 16:10 16:20 Temperature Pulse Rate 106 H 112 H 110 H Pulse Rate [ Upset Welding Machine Operator ] Pulse Rate [ Sitting Upset Welding Machine Operator] Pulse Rate [ Standing Upset Welding Machine Operator ] Pulse Rate [ Supine Upset Welding Machine Operator] Respiratory 19 9 L 5 L Rate Blood Pressure 98/57 98/57 98/57 Blood Pressure [Right Arm Sitting] Blood Pressure [Right Arm Standing] Blood Pressure [Right Arm Supine] Blood Pressure [Right Arm] O2 Sat by Pulse Oximetry 02/21/25 02/21/25 02/21/25 16:30 16:40 16:50 Temperature Pulse Rate 112 H 107 H 117 H Pulse Rate [ Upset Welding Machine Operator ] Pulse Rate [ Sitting Upset Welding Machine Operator] Pulse Rate [ Standing Upset Welding Machine Operator ] Pulse Rate [ Supine Upset Welding Machine Operator] Respiratory 21 4 L 30 H Rate Blood Pressure 101/60 101/60 101/60 Blood Pressure [Right Arm Sitting] Blood Pressure [Right Arm Standing] Blood Pressure [Right Arm Supine] Blood Pressure [Right Arm] O2 Sat by Pulse Oximetry 02/21/25 17:00 Temperature 98.8 F Pulse Rate 112 H Pulse Rate [ Upset Welding Machine Operator ] Pulse Rate [ Sitting Upset Welding Machine Operator] Pulse Rate [ Standing Upset Welding Machine Operator ] Pulse Rate [ Supine Upset Welding Machine Operator] Respiratory 15 Rate Blood Pressure 101/60 Blood Pressure [Right Arm Sitting] Blood Pressure [Right Arm Standing] Blood Pressure [Right Arm Supine] Blood Pressure [Right Arm] O2 Sat by Pulse 93 L Oximetry Medical Decision Making - Medical Decision Making Was pt. sent in by a medical professional or institution (, PA, PATROL POLICE SERGEANT, urgent care, hospital, or residential...) When possible be specific @ -No Did you speak to anyone other than the patient for history (EMS, parent, family, police, friend...)? What history was obtained from this source @ -Spoke with the daughters for history Did you review nursing and triage notes (agree or disagree)? Why? @ -I reviewed and agree with nursing and triage notes Were old charts reviewed (outside hosp., previous admission, EMS record, old EKG, old radiological studies, urgent care reports/EKG's, residential records)? Report findings @ -I reviewed note from February 11. Patient received diagnosis of bullous pemphigoid from [place] Differential Diagnosis (chest pain, altered mental status, abdominal pain women, abdominal pain men, vaginal bleeding, weakness, fever, dyspnea, syncope, headache, dizziness, GI bleed, back pain, seizure, CVA, palpatations, mental health, musculoskeletal)? @ -Differential Weakness: Hypoglycemia, shock, sepsis, hyponatremia, anemia, infection, MO, ETOH, adverse medicine reaction, overdose, stroke, this is not meant to be an all-inclusive list. EKG interpreted by me (3pts min.). @ -Yes which demonstrates sinus tachycardia with a rate of 103. MO interval 162. QRS 116. QTc of 438. Some PVCs. ST depression in V4 through V6 X-rays interpreted by me (1pt min.). @ -Yes which demonstrates mild pulmonary vascular congestion CT interpreted by me (1pt min.). @ -Yes which demonstrates no stroke U/S interpreted by me (1pt. min.). @ -None done What testing was considered but not performed or refused? (CT, X-rays, U/S, labs)? Why? @ -None What meds were considered but not given or refused? Why? @ -None Did you discuss the management of the patient with other professionals (sophie rosas i.e. , PA, PATROL POLICE SERGEANT, lab, RT, psych nurse, clinical social work aide, head operator sulfide, teacher, airconditioning drafting officer, case reviewer)? Give summary @ -Spoke with Sheet for the admission Was smoking cessation discussed for >3mins.? @ -No Was critical care preformed (if so, how long)? @ -No Were there social determinants of health that impacted care today? How? (Homelessness, low income, unemployed, alcoholism, drug addiction, transportation, low edu. Level, literacy, decrease access to med. care, nursing home, rehab)? @ -No Was there de-escalation of care discussed even if they declined (Discuss DNR or withdrawal of care, Hospice)? DNR status @ -No What co-morbidities impacted this encounter? (DM, HTN, Smoking, COPD, CAD, Cancer, CVA, ARF, Chemo, Hep., AIDS, mental health diagnosis, sleep apnea, morbid obesity)? @ -CVA, bullous pemphigoid Was patient admitted / discharged? Hospital course, mention meds given and route, prescriptions, significant lab abnormalities, going to OR and other pertinent info. @ -Upon arrival patient seen and evaluated in bed 28. Thorough history and physical exam was performed. IV access was established. Laboratory studies are conducted. Patient does not he appear to have lateralizing weakness and therefore NIH is 0. CT and CTA are still performed as well as a chest x-ray. Results were discussed with the patient. Due to her weakness, open skin, significant swelling due to lack of diuretics I did recommend admission for which the patient was agreeable. I spoke with Dr. Porter for admission Undiagnosed new problem with uncertain prognosis? @ -No Drug Therapy requiring intensive monitoring for toxicity (Heparin, Nitro, Insulin, Cardizem)? @ -No Were any procedures done? @ -No Diagnosis/symptom? @ -Acute weakness, bilateral lower extremity swelling, bullous pemphigoid off diuretics, tachycardia Acute, or Chronic, or Acute on Chronic? @ -Acute on chronic Uncomplicated (without systemic symptoms) or Complicated (systemic symptoms)? @ -Complicated Side effects of treatment? @ -No Exacerbation, Progression, or Severe Exacerbation? @ -No Poses a threat to life or bodily function? How? (Chest pain, USA, MO, pneumonia, PE, COPD, DKA, ARF, appy, cholecystitis, CVA, Diverticulitis, Homicidal, Suicidal, threat to staff... and all critical care pts) @ -No - Lab Data Result diagrams: 02/25/25 04:45 02/25/25 04:45 Lab Results 02/20/25 02/20/25 02/20/25 Range/Units 10:02 10:02 10:02 WBC 8.63 (4.50-10.00) 10*3/uL RBC 3.83 L (4.10-5.20) 10*6/uL Hgb 10.5 L (12.0-15.0) g/dL Hct 34.9 L (37.2-46.3) % MCV 91.1 (80.0-97.0) fL MCH 27.4 (27.0-32.0) pg MCHC 30.1 L (32.0-37.0) g/dL Plt Count 451 H (140-440) 10*3/uL MPV 9.0 L (9.5-12.2) fL Immature Gran % (Auto) 0.3 % Neutrophils % 81.8 % Lymphocytes % 9.8 % Monocytes % 6.5 % Eosinophils % 1.3 % Basophils % 0.3 % Immature Gran # 0.03 (0.00-0.04) 10*3/uL Neutrophils # 7.05 (1.80-7.70) 10*3/uL Lymphocytes # 0.85 L (0.90-5.00) 10*3/uL Monocytes # 0.56 (0.20-1.00) 10*3/uL Eosinophils # 0.11 (0.04-0.35) 10*3/uL Basophils # 0.03 (0.00-0.10) 10*3/uL Sodium 138 (137-145) mmol/L Potassium 3.9 (3.5-5.1) mmol/L Chloride 103 (98-107) mmol/L Carbon Dioxide 26 (22-30) mmol/L Anion Gap 9 mmol/L BUN 16 (7-17) mg/dL Creatinine 0.68 (0.52-1.04) mg/dL Est GFR (CKD-EPI)AfAm >90 (>60 ml/min/1.73 sqM) Est GFR (CKD-EPI)NonAf >90 (>60 ml/min/1.73 sqM) Glucose 171 H (74-99) mg/dL Calcium 8.5 (8.4-10.2) mg/dL Total Bilirubin 0.4 (0.2-1.3) mg/dL AST 26 (14-36) U/L ALT 21 (4-34) U/L Alkaline Phosphatase 75 (38-126) U/L Creatine Kinase 64 (30-135) U/L Troponin I (0.000-0.034) ng/mL NT-Pro-B Natriuret Pep 1740 pg/mL Total Protein 5.9 L (6.3-8.2) g/dL Albumin 2.7 L (3.5-5.0) g/dL 02/20/25 Range/Units 10:02 WBC (4.50-10.00) 10*3/uL RBC (4.10-5.20) 10*6/uL Hgb (12.0-15.0) g/dL Hct (37.2-46.3) % MCV (80.0-97.0) fL MCH (27.0-32.0) pg MCHC (32.0-37.0) g/dL Plt Count (140-440) 10*3/uL MPV (9.5-12.2) fL Immature Gran % (Auto) % Neutrophils % % Lymphocytes % % Monocytes % % Eosinophils % % Basophils % % Immature Gran # (0.00-0.04) 10*3/uL Neutrophils # (1.80-7.70) 10*3/uL Lymphocytes # (0.90-5.00) 10*3/uL Monocytes # (0.20-1.00) 10*3/uL Eosinophils # (0.04-0.35) 10*3/uL Basophils # (0.00-0.10) 10*3/uL Sodium (137-145) mmol/L Potassium (3.5-5.1) mmol/L Chloride (98-107) mmol/L Carbon Dioxide (22-30) mmol/L Anion Gap mmol/L BUN (7-17) mg/dL Creatinine (0.52-1.04) mg/dL Est GFR (CKD-EPI)AfAm (>60 ml/min/1.73 sqM) Est GFR (CKD-EPI)NonAf (>60 ml/min/1.73 sqM) Glucose (74-99) mg/dL Calcium (8.4-10.2) mg/dL Total Bilirubin (0.2-1.3) mg/dL AST (14-36) U/L ALT (4-34) U/L Alkaline Phosphatase (38-126) U/L Creatine Kinase (30-135) U/L Troponin I 0.015 (0.000-0.034) ng/mL NT-Pro-B Natriuret Pep pg/mL Total Protein (6.3-8.2) g/dL Albumin (3.5-5.0) g/dL Disposition Clinical Impression: History of stroke, Bullous pemphigoid, Atrial fibrillation, Weakness, Fall Disposition: ADMITTED IP TO [facility] Condition: Stable Is patient prescribed a controlled substance at d/c from ED?: No Time of Disposition: 15:23 Decision to Admit Reason: Admit from EC Decision Date: 02/20/25 Decision Time: 15:23
[2025-02-20] MEDS ORDERED: NALOXONE 0.4 MG/ML 1 ML VIAL IV PRN (15:25)
[2025-02-20] MEDS ORDERED: MIDODRINE 5 MG TAB PO PRN (21:41)
[2025-02-20] MEDS: levETIRAcetam 500 MG TAB PO STA (21:57)
[2025-02-20] MEDS: GABAPENTIN 300 MG CAP PO ONE (21:58)
[2025-02-20] MEDS: QUEtiapine 25 MG TAB PO ONE (21:58)
[2025-02-20] MEDS: APIXABAN 5 MG TAB PO ONE (21:58)
[2025-02-20] MEDS: carBAMazepine 200 MG TAB PO ONE (21:58)
--- NOTE | 2025-02-20 22:13 | P.HPIM ---
History of Present Illness This is a pleasant 54 years old female who was recently diagnosed with bullous pemphigoid 3 months ago when she is sent from this facility to [facility], she had a biopsy followed by treatment with doxycycline and taper prednisone over 3 weeks. Also she has extensive long history of CHF and seizure disorder. She was previo usly in the ICU for severe sepsis. Now presents because of generalized weakness. Patient states she went and fell today while she was trying to get up to go to the restroom she found a green chair on her way she was too weak to move with so she fell on her buttocks she could not get up as usual so she called the family who helped her and called EMS. Patient stayed on the floor for about 25 minutes as she explains. Denies any abdominal pain vomiting or diarrhea Denies dysuria urgency but states she has not been since yesterday and she has been drinking a lot of water for this reason Denies chest pain or dyspnea or coughing. No headache dizziness She is a known case of previous stroke and severe left hemiparesis, patient states it is worse than before this time. Also there was some concern from some slurred speech but no double vision. Patient complains from feeling swollen in her legs She has extensive bullous disease, majority of them are ruptured throughout her trunk and extremities and there is surrounding with erythema more extensive edema in the lower extremities bilaterally. However there is no purulent discharge. 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 Noriega neurologist is Dr. quiroz Patient with no fever blood pressure slightly on the low side but patient is symptomatic Blood pressure is fluctuation slightly on the low side Hemoglobin 10 WBC normal 8.6. Rest of labs unremarkable including electrolytes proBNP 1740 CT of the head and neck showing moderate stenosis of bilateral internal carotid arteries CT of the brain showing remote right large MCA territory infarct with encephalomalacia and remote left frontal infarct with encephalomalacia and bilateral cerebellar encephalomalacia Chest x-ray showing mild interstitial prominence may be bronchitis rule out mild pulmonary vascular congestion Review of Systems Review of systems CONSTITUTIONAL: No fever, no malaise HEENT: No recent visual problems or hearing problems. Denied any sore throat. CARDIOVASCULAR: No orthopnea, PND, no palpitations, no syncope. PULMONARY: No shortness of breath, no cough, no hemoptysis. GASTROINTESTINAL: No diarrhea, no nausea, no vomiting, no abdominal pain. Normoactive bowel sounds. NEUROLOGICAL: No headaches,no numbness. HEMATOLOGICAL: Denies any bleeding or petechiae. GENITOURINARY: Denies any burning micturition, frequency, or urgency. MUSCULOSKELETAL/RHEUMATOLOGICAL: Denies any joint pain, swelling, or any muscle pain. ENDOCRINE: Denies any polyuria or polydipsia. 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 Covid History of Any Multi-Drug Resistant Organisms: None Reported Past Surgical History: Pacemaker Additional Past Surgical History / Comment(s): Bilateral eye surgery for gl aucoma Past Anesthesia/Blood Transfusion Reactions: No Reported Reaction Type of Cardiac Device: Permanent Pacemaker Device Placement Date:: 2012 Past Psychological History: Anxiety, Depression Smoking Status: Never smoker Past Alcohol Use History: Occasional Past Drug Use History: None Reported - Past Family History Father Family Medical History: Coronary Artery Disease (CAD), Myocardial Infarction ([place]) Additional Family Medical History / Comment(s): Father is 75 yrs old. He had a silent [place]. Mother Additional Family Medical History / Comment(s): Mother is at 32 yrs d/t cardiomyopathy Medications and Allergies Home Medications Medication Instructions Recorded Confirmed Type Atorvastatin Calcium [Lipitor] 80 mg PO DAILY 03/08/14 02/20/25 History levETIRAcetam [Keppra] 1,500 mg PO BID 03/22/17 02/20/25 History Amiodarone [Cordarone] 200 mg PO DAILY 02/22/20 02/20/25 History carBAMazepine [TEGretol] 200 mg PO TID 02/22/20 02/20/25 History Apixaban [Eliquis] 5 mg PO BID 07/21/21 02/20/25 History Gabapentin 600 mg PO TID 11/18/24 02/20/25 History QUEtiapine [SEROquel] 25 mg PO BID 11/18/24 02/20/25 History Doxycycline [Vibramycin] 100 mg PO BID #28 capsule 02/11/25 02/20/25 Rx Mupirocin 2% Oint [Bactroban 2% 1 applic TOPICAL TID #30 gm 02/11/25 02/20/25 Rx Oint] Dupilumab [Dupixent Pen] 300 mg SQ Q14D 02/20/25 02/20/25 History Vitamin C (Unknown Strength) 1 dose PO DAILY 02/20/25 02/20/25 History Vitamin D3 (Unknown Strength) 1 dose PO DAILY 02/20/25 02/20/25 History predniSONE See Taper PO DIRECTED 02/20/25 02/20/25 History Allergies Allergy/AdvReac Type Severity Reaction Status Date / Time cephalexin monohydrate Allergy Rash/Hives Verified 02/20/25 13:58 [From Keflex] Penicillins Allergy Anaphylaxis Verified 02/20/25 13:58 Physical Exam Vitals: Vital Signs Temp Pulse Resp BP Pulse Ox 02/20/25 18:46 97 18 94/63 98 02/20/25 16:32 99 18 114/66 99 02/20/25 14:54 80 20 110/60 95 02/20/25 14:00 80 20 100/70 98 02/20/25 13:00 98 F 80 20 130/76 98 02/20/25 12:24 100 20 140/79 100 02/20/25 09:29 97.7 F 110 H 18 139/74 100 Intake and Output 02/20/25 02/20/25 02/20/25 06:59 14:59 22:59 Other: Weight 64.41 kg GENERAL: The patient is alert and oriented x3, not in any acute distress. Well developed, well nourished. HEENT: Pupils are round and equally reacting to light. EOMI. No scleral icterus. No conjunctival pallor. Normocephalic, atraumatic. No pharyngeal erythema. No thyromegaly. CARDIOVASCULAR: S1 and S2 present. No murmurs, rubs, or gallops. PULMONARY: Chest is clear to auscultation, no wheezing , no crackles. ABDOMEN: Soft, nontender, nondistended, normoactive bowel sounds. No palpable organomegaly. MUSCULOSKELETAL: No joint swelling or deformity. EXTREMITIES: No cyanosis, clubbing, or pedal edema. -Multiple eroded bullae and friable bullae with surrounding erythema throughout trunk and extremities ( bullous pemphigoid ) -NEUROLOGICAL: Gross neurological examination did not reveal any focal deficits. sever left hemiparesis (old per pt) SKIN: No rashes. no petechiae. Results CBC & Chem 7: 02/20/25 10:02 02/20/25 10:02 Labs: Abnormal Lab Results - Last 24 Hours (Table) 02/20/25 02/20/25 Range/Units 10:02 10:02 RBC 3.83 L (4.10-5.20) 10*6/uL Hgb 10.5 L (12.0-15.0) g/dL Hct 34.9 L (37.2-46.3) % MCHC 30.1 L (32.0-37.0) g/dL Plt Count 451 H (140-440) 10*3/uL MPV 9.0 L (9.5-12.2) fL Lymphocytes # 0.85 L (0.90-5.00) 10*3/uL Glucose 171 H (74-99) mg/dL Total Protein 5.9 L (6.3-8.2) g/dL Albumin 2.7 L (3.5-5.0) g/dL Assessment and Plan Assessment: Worsening weakness on the left side associated with fall without syncope and transient slurred speech and some swallowing difficulty, rule out new stroke or worsening stroke Bullous pemphigoid with multiple eroded and friable bullae throughout the trunk and extremities with surrounding erythema on doxycycline and prednisone previously Cardiomyopathy with ejection fraction 35% Coronary artery disease History of PE History of stroke with persistent hemiplegia Moderate bilateral internal carotid artery stenosis Seizure disorder with history of breakthrough seizure Generalized weakness Plan: Check urine analysis Check a bladder scan Check orthostatic vitals Continue doxycycline Neurology team consulted. CT of the brain showing previous strokes. CTA showing carotid artery stenosis bilaterally but moderate reviewed Cardiology team consulted for her cardiomyopathy Infectious disease team were consulted although patient does not have overt signs of sepsis Wound team consult Labs and medication were reviewed.. Continue same treatment. Continue with symptomatic treatment. Resume home medication. Monitor labs and vitals. DVT and GI prophylaxis. Further recommendations as per clinical course of the patient DVT prophylaxis: Eliquis GI Prophylaxis: Pepcid PT/OT: Pending Prognosis is guarded
[2025-02-20 22:39] LABS: Bilirubin,Urine Negative (Negative); Blood,Urine Negative (Negative); Color,Urine Yellow; Glucose,Urine (UA) Negative (Negative); Ketones,Urine Negative (Negative); Leukocyte Esterase,Urine Negative (Negative); Nitrite,Urine Negative (Negative); PH, Urine 6.0 (5.0-8.0); Protein,Urine Negative (Negative); Urobilinogen,Urine <2.0 mg/dL (<2.0)
--- NOTE | 2025-02-20 22:54 | P.CONS ---
History of Present Illness - Reason for Consult Consult date: 02/20/25 Bullous pemphigoid with possible secondary cellulitis Requesting physician: Evonne Adamson - Chief Complaint Weakness and fall x 1 day - History of Present Illness Patient is a 54-year-old female with a past medical history significant for PE seizure disorder coronary artery disease has been diagnosed with bullous pemphigoid patient has been brought into the hospital concerning for weakness apparently the patient did sustain a fall earlier in the morning of presentation the hospital with the patient attributed to feeling weak patient denies having any some slurred speech with the patient has been denying patient denies having any headache or URI symptoms chest pain short of breath or cough no abdominal pain vomiting diarrhea the patient had a multiple skin lesions however the patient denies any worsening skin evaluation or drainage patient was presentation to the hospital was afebrile and no significant bradycardia subsequently patient was not tachycardic hypotensive or hypoxic no need for supplemental oxygen patient did have a normal white count of 8.63 creatinine 0.68 electrolytes are within normal liver enzymes are normal chest x-ray mild distention prominence may be chronic correlate to exclude mild pulmonary vascular congestion otherwise no acute process patient was admitted to the hospital infectious disease was consulted concerning for bullous pemphigoid and possible secondary cellulitis Review of Systems Positive point and negatives has been mentioned in the HPI, complete review of systems was performed and all other systems are negative Past Medical History Past Medical History: Coronary Artery Disease (CAD), Heart Failure, CVA/TIA, Eye Disorder, Pneumonia, Pulmonary Embolus (PE), Seizure Disorder, Skin Disorder Additional Past Medical History / Comment(s): Last seizure 2009, CVA 2007 with L sided weakness arm and leg and has L foot drop, TIA 2018, cardiomyopathy, R PE and pneumothorax/pneumonia following leg fracture in 1994, gestational diabetes with all pregnancies (4), bilateral glaucoma with surgery, psoriasis in the [address], UTIs. Covid History of Any Multi-Drug Resistant Organisms: None Reported Past Surgical History: Pacemaker Additional Past Surgical History / Comment(s): Bilateral eye surgery for glaucoma Past Anesthesia/Blood Transfusion Reactions: No Reported Reaction Type of Cardiac Device: Permanent Pacemaker Device Placement Date:: 2012 Past Psychological History: Anxiety, Depression Smoking Status: Never smoker Past Alcohol Use History: Occasional Past Drug Use History: None Reported - Past Family History Father Family Medical History: Coronary Artery Disease (CAD), Myocardial Infarction ([place]) Additional Family Medical History / Comment(s): Father is 75 yrs old. He had a silent [place]. Mother Additional Family Medical History / Comment(s): Mother is at 32 yrs d/t cardiomyopathy Medications and Allergies Home Medications Medication Instructions Recorded Confirmed Type Atorvastatin Calcium [Lipitor] 80 mg PO DAILY 03/08/14 02/20/25 History levETIRAcetam [Keppra] 1,500 mg PO BID 03/22/17 02/20/25 History Amiodarone [Cordarone] 200 mg PO DAILY 02/22/20 02/20/25 History carBAMazepine [TEGretol] 200 mg PO TID 02/22/20 02/20/25 History Apixaban [Eliquis] 5 mg PO BID 07/21/21 02/20/25 History Gabapentin 600 mg PO TID 11/18/24 02/20/25 History QUEtiapine [SEROquel] 25 mg PO BID 11/18/24 02/20/25 History Doxycycline [Vibramycin] 100 mg PO BID #28 capsule 02/11/25 02/20/25 Rx Mupirocin 2% Oint [Bactroban 2% 1 applic TOPICAL TID #30 gm 02/11/25 02/20/25 Rx Oint] Dupilumab [Dupixent Pen] 300 mg SQ Q14D 02/20/25 02/20/25 History Vitamin C (Unknown Strength) 1 dose PO DAILY 02/20/25 02/20/25 History Vitamin D3 (Unknown Strength) 1 dose PO DAILY 02/20/25 02/20/25 History predniSONE See Taper PO DIRECTED 02/20/25 02/20/25 History Allergies Allergy/AdvReac Type Severity Reaction Status Date / Time cephalexin monohydrate Allergy Rash/Hives Verified 02/20/25 13:58 [From Keflex] Penicillins Allergy Anaphylaxis Verified 02/20/25 13:58 Physical Exam Vitals: Vital Signs Temp Pulse Resp BP Pulse Ox 02/20/25 14:54 80 20 110/60 95 02/20/25 14:00 80 20 100/70 98 02/20/25 13:00 98 F 80 20 130/76 98 02/20/25 12:24 100 20 140/79 100 02/20/25 09:29 97.7 F 110 H 18 139/74 100 Intake and Output 02/20/25 02/20/25 02/20/25 06:59 14:59 22:59 Other: Weight 64.41 kg GENERAL DESCRIPTION: Middle-age female lying in bed, no distress. No tachypnea or accessory muscle of respiration use. HEENT: Shows Pallor , no scleral icterus. Oral mucous membrane is dry. No pharyngeal erythema or thrush NECK: Trachea central, no thyromegaly. LUNGS: Unlabored breathing. Clear to auscultation anteriorly. No wheeze or crackle. HEART: S1, S2, regular rate and rhythm. No loud murmur ABDOMEN: Soft, no tenderness , guarding or rigidity, no organomegaly EXTREMITIES: No edema of feet. SKIN: Patient did have multiple skin lesions however no slough tissue or redness. No drainage was noticed NEUROLOGICAL: The patient is awake, alert, oriented x3, mood and affect normal. Results CBC & Chem 7: 02/20/25 10:02 02/20/25 10:02 Labs: Abnormal Lab Results - Last 24 Hours (Table) 02/20/25 02/20/25 Range/Units 10:02 10:02 RBC 3.83 L (4.10-5.20) 10*6/uL Hgb 10.5 L (12.0-15.0) g/dL Hct 34.9 L (37.2-46.3) % MCHC 30.1 L (32.0-37.0) g/dL Plt Count 451 H (140-440) 10*3/uL MPV 9.0 L (9.5-12.2) fL Lymphocytes # 0.85 L (0.90-5.00) 10*3/uL Glucose 171 H (74-99) mg/dL Total Protein 5.9 L (6.3-8.2) g/dL Albumin 2.7 L (3.5-5.0) g/dL Assessment and Plan (1) Skin ulcer of multiple sites Current Visit: Yes Status: Acute Code(s): L98.499 - NON-PRESSURE CHRONIC ULCER OF SKIN OF SITES W UNSP SEVERITY SNOMED Code(s): 57359414 (2) Bullous pemphigoid Current Visit: Yes Status: Acute Code(s): L12.0 - BULLOUS PEMPHIGOID SNOMED Code(s): 59866182 (3) Allergy to multiple antibiotics Current Visit: No Status: Acute Code(s): Z88.1 - ALLERGY STATUS TO OTHER ANTIBIOTIC AGENTS SNOMED Code(s): 619811387 Plan: 1 Patient presented to hospital with fall due to generalized weakness which could be related to possible prerenal as the patient and daughter mention air conditioning for the last few days which has been really hot and the patient will drinking enough fluid patient did have multiple skin lesions but there is no slough tissue no surrounding redness patient not running any fever no elevated white count clinically doubt any active cellulitis 2-multiple antibiotic allergies 3-at this point we will monitor the patient closely off antibiotic as clinical suspicion low for cellulitis/infection 4-wound care has been consulted for local wound care Daughter at the bedside questions answered We will follow on clinical condition and cultures to further adjust medication if needed Thank you for this consultation we will follow the patient along with you Dictation was produced using [employer] dictation software. please excuse any grammatical, word or spelling errors. Time with Patient: Greater than 30
[2025-02-20 23:01] LABS: Specific Gravity,Urine 1.050 (1.001-1.035)
[2025-02-21] MEDS: ACETAMINOPHEN TAB 325 MG TAB PO PRN (01:41)
[2025-02-21] MEDS: SODIUM CHLORIDE 0.9% 500 ML 500 ML IV ONE (02:00)
[2025-02-21 06:32] LABS: ALT 18 U/L (4-34); AST 25 U/L (14-36); African American GFR (CKD) >90 (>60 ml/min/1.73 sqM); Albumin 2.0 g/dL (3.5-5.0); Alkaline Phosphatase 55 U/L (38-126); Anion Gap 2 mmol/L; Bilirubin, Delta 0.2 mg/dL (0.0-0.2); Bilirubin,Unconjugated 0.2 mg/dL (0.0-1.1); Blood Urea Nitrogen 10 mg/dL (7-17); Calcium 7.3 mg/dL (8.4-10.2); Carbon Dioxide 28 mmol/L (22-30); Chloride 107 mmol/L (98-107); Glucose 85 mg/dL (74-99); Non-African American GFR(CKD) >90 (>60 ml/min/1.73 sqM); Potassium 3.9 mmol/L (3.5-5.1); Sodium 137 mmol/L (137-145); Total Protein 4.7 g/dL (6.3-8.2)
[2025-02-21 06:35] LABS: Basophils # (A) 0.02 10*3/uL (0.00-0.10); Basophils % (A) 0.3 %; Eosinophils # (A) 0.29 10*3/uL (0.04-0.35); Eosinophils % (A) 4.4 %; HCT 28.8 % (37.2-46.3); Lymphocytes # (A) 1.06 10*3/uL (0.90-5.00); Lymphocytes % (A) 16.2 %; MCH 27.3 pg (27.0-32.0); MCHC 30.2 g/dL (32.0-37.0); MCV 90.3 fL (80.0-97.0); Monocytes # (A) 0.34 10*3/uL (0.20-1.00); Monocytes % (A) 5.2 %; Neutrophils # (A) 4.81 10*3/uL (1.80-7.70); Neutrophils % (A) 73.3 %; Platelet Count 340 10*3/uL (140-440); RBC 3.19 10*6/uL (4.10-5.20); RDW 17.1 % (11.5-14.5); WBC 6.56 10*3/uL (4.50-10.00)
[2025-02-21 06:37] LABS: HGB 8.7 g/dL (12.0-15.0)
[2025-02-21] MEDS: SODIUM CHLORIDE 0.9% 1,000 ML IV SCH (10:12)
[2025-02-21] MEDS: APIXABAN 5 MG TAB PO SCH (10:13)
[2025-02-21] MEDS: carBAMazepine 200 MG TAB PO SCH (10:14)
[2025-02-21] MEDS: ATORVASTATIN 80 MG TAB PO SCH (10:14)
[2025-02-21] MEDS: FAMOTIDINE 20 MG/2 ML VIAL IV SCH (10:15)
[2025-02-21] MEDS: AMIODARONE 200 MG TAB PO SCH (10:15)
[2025-02-21] MEDS: QUEtiapine 25 MG TAB PO SCH (10:15)
[2025-02-21] MEDS ORDERED: DOXYCYCLINE 100 MG PO SCH (10:15)
--- NOTE | 2025-02-21 10:22 | P.PN ---
Subjective This is a pleasant 54 years old female who was recently diagnosed with bullous pemphigoid 3 months ago when she is sent from this facility to [facility], she had a biopsy followed by treatment with doxycycline and taper prednisone over 3 weeks. Also she has extensive long history of CHF and seizure disorder. She was previously in the ICU for severe sepsis. Now presents because of generalized weakness. Patient states she went and fell today while she was trying to get up to go to the restroom she found a green chair on her way she was too weak to move with so she fell on her buttocks she could not get up as usual so she called the family who helped her and called EMS. Patient stayed on the floor for about 25 minutes as she explains. Denies any abdominal pain vomiting or diarrhea Denies dysuria urgency but states she has not been since yesterday and she has been drinking a lot of water for this reason Denies chest pain or dyspnea or coughing. No headache dizziness She is a known case of previous stroke and severe left hemiparesis, patient states it is worse than before this time. Also there was some concern from some slurred speech but no double vision. Patient complains from feeling swollen in her legs She has extensive bullous disease, majority of them are ruptured throughout her trunk and extremities and there is surrounding with erythema more extensive edema in the lower extremities bilaterally. However there is no purulent discharge. 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 Noriega neurologist is Dr. quiroz Patient with no fever blood pressure slightly on the low side but patient is symptomatic Blood pressure is fluctuation slightly on the low side Hemoglobin 10 WBC normal 8.6. Rest of labs unremarkable including electrolytes proBNP 1740 CT of the head and neck showing moderate stenosis of bilateral internal carotid arteries CT of the brain showing remote right large MCA territory infarct with encephalomalacia and remote left frontal infarct with encephalomalacia and bilateral cerebellar encephalomalacia Chest x-ray showing mild interstitial prominence may be bronchitis rule out mild pulmonary vascular congestion 02/21 Patient awake alert She looks hypovolemic with positive orthostatic vitals, yesterday we will give her a bolus of 500 cc. Albumin dropped from 2.7 down to 2.0. Patient has slightly worse leg swelling. She has multiple friable and ruptured bullae on the trunk and extremities with mild erythema surrounding these bullae especially in the lower extremities. These are chronic for the last 3 months diagnosed with bullous pemphigoid. Patient states that she took the steroids and that did not help much. She denies chest pain or dyspnea. No abdominal pain or vomiting. Patient currently not on antibiotics per ID team recommendation to keep monitoring while off antibiotics. No fever. Patient was on doxycycline for her bullous lesions at [facility] not sure if she needed for now, keep holding doxycycline. Cardiology is going to evaluate the patient. Neurology service also on the case however patient has chronic hemiplegia, and this morning she is not sure if it is left hemiplegia is at baseline or worse, however is severe and does not make much difference. No slurred speech no blurry vision. Active Medications Generic Name Dose Route Start Last Admin Trade Name Freq PRN Reason Stop Dose Admin Acetaminophen 325 mg 02/21/25 01:15 02/21/25 01:41 Acetaminophen Tab 325 Mg Tab PO 325 mg Q6HR PRN Administration Fever and/ or Pain Amiodarone HCl 200 mg 02/21/25 09:00 02/21/25 10:15 Amiodarone 200 Mg Tab PO 200 mg DAILY ADDIE Administration Apixaban 5 mg 02/21/25 09:00 02/21/25 10:13 Apixaban 5 Mg Tab PO 5 mg BID ADDIE Administration Protocol Atorvastatin Calcium 80 mg 02/21/25 09:00 02/21/25 10:14 Atorvastatin 80 Mg Tab PO 80 mg DAILY ADDIE Administration Carbamazepine 200 mg 02/21/25 09:00 02/21/25 10:14 Carbamazepine 200 Mg Tab PO 200 mg TID ADDIE Administration Famotidine 20 mg 02/21/25 09:00 02/21/25 10:15 Famotidine 20 Mg/2 Ml Vial IV 20 mg Q12HR ADDIE Administration Gabapentin 600 mg 02/21/25 16:00 Gabapentin 300 Mg Cap PO TID ADDIE Albumin Human 500 ml/ IV 500 mls @ 500 mls/hr 02/21/25 10:15 Solution IVPB 02/21/25 11:14 ONCE STA Protocol Levetiracetam 1,500 mg 02/21/25 09:00 02/21/25 10:14 Levetiracetam 750 Mg Tab PO 1,500 mg BID ADDIE Administration Midodrine 5 mg 02/20/25 21:41 Midodrine 5 Mg Tab PO AC-TID PRN Blood Pressure - Low Naloxone HCl 0.2 mg 02/20/25 15:25 Naloxone 0.4 Mg/Ml 1 Ml Vial IV Q2M PRN Opioid Reversal Prednisone 10 mg 02/21/25 10:15 Prednisone 10 Mg Tab PO DAILY ADDIE Quetiapine Fumarate 25 mg 02/21/25 09:00 02/21/25 10:15 Quetiapine 25 Mg Tab PO 25 mg BID ADDIE Administration Objective - Vital Signs Vital signs: Vital Signs Temp 98 F 02/20/25 13:00 Pulse 109 H 02/21/25 04:00 Resp 18 02/21/25 04:00 BP 99/50 02/21/25 06:40 Pulse Ox 95 02/21/25 04:00 FiO2 Intake & Output 02/20/25 02/21/25 02/21/25 18:59 06:59 18:59 Output Total 1 Balance -1 Weight 64.41 kg Output: Urine 1 - Exam GENERAL: The patient is alert and oriented x3, not in any acute distress. Well developed, well nourished. HEENT: Pupils are round and equally reacting to light. EOMI. No scleral icterus. No conjunctival pallor. Normocephalic, atraumatic. No pharyngeal erythema. No thyromegaly. CARDIOVASCULAR: S1 and S2 present. No murmurs, rubs, or gallops. PULMONARY: Chest is clear to auscultation, no wheezing , no crackles. ABDOMEN: Soft, nontender, nondistended, normoactive bowel sounds. No palpable organomegaly. MUSCULOSKELETAL: No joint swelling or deformity. EXTREMITIES: No cyanosis, clubbing, or pedal edema. -Multiple eroded bullae and friable bullae with surrounding erythema throughout trunk and extremities ( bullous pemphigoid ) -NEUROLOGICAL: Gross neurological examination did not reveal any focal deficits. sever left hemiparesis (old per pt) SKIN: No rashes. no petechiae. - Labs CBC & Chem 7: 02/21/25 06:08 02/21/25 06:10 Labs: Abnormal Lab Results - Last 24 Hours (Table) 02/20/25 02/20/25 02/21/25 Range/Units 10:02 22:29 06:08 RBC 3.19 L (4.10-5.20) 10*6/uL Hgb 8.7 L D (12.0-15.0) g/dL Hct 28.8 L (37.2-46.3) % MCHC 30.2 L (32.0-37.0) g/dL MPV 9.0 L (9.5-12.2) fL Glucose 171 H (74-99) mg/dL Calcium (8.4-10.2) mg/dL Total Protein 5.9 L (6.3-8.2) g/dL Albumin 2.7 L (3.5-5.0) g/dL Procalcitonin (0.02-0.50) ng/mL Ur Specific [place] 1.050 H (1.001-1.035) 02/21/25 02/21/25 Range/Units 06:10 06:10 RBC (4.10-5.20) 10*6/uL Hgb (12.0-15.0) g/dL Hct (37.2-46.3) % MCHC (32.0-37.0) g/dL MPV (9.5-12.2) fL Glucose (74-99) mg/dL Calcium 7.3 L (8.4-10.2) mg/dL Total Protein 4.7 L (6.3-8.2) g/dL Albumin 2.0 L (3.5-5.0) g/dL Procalcitonin 0.67 H (0.02-0.50) ng/mL Ur Specific [place] (1.001-1.035) Assessment and Plan Assessment: Worsening weakness on the left side associated with fall without syncope and transient slurred speech and some swallowing difficulty, rule out new stroke or worsening stroke Bullous pemphigoid with multiple eroded and friable bullae throughout the trunk and extremities with surrounding erythema on doxycycline and prednisone previously Cardiomyopathy with ejection fraction 35% Coronary artery disease History of PE History of stroke with persistent hemiplegia Moderate bilateral internal carotid artery stenosis Seizure disorder with history of breakthrough seizure Generalized weakness Plan: 1 dose of albumin 5 mg bolus of 500 cc Follow-up with infectious disease team recommendation who recommend to hold antibiotics for now we will keep a close monitoring Patient follow-up with advertising agent as an outpatient for her bullous lesions Neurology team consulted. CT of the brain showing previous strokes. CTA showin g carotid artery stenosis bilaterally but moderate reviewed Cardiology team consulted for her cardiomyopathy Wound team consult Labs and medication were reviewed.. Continue same treatment. Continue with symptomatic treatment. Resume home medication. Monitor labs and vitals. DVT and GI prophylaxis. Further recommendations as per clinical course of the patient DVT prophylaxis: Eliquis GI Prophylaxis: Pepcid PT/OT: Pending Prognosis is guarded
[2025-02-21] MEDS: predniSONE 10 MG TAB PO SCH (10:30)
[2025-02-21] MEDS: ALBUMIN HUMAN 5% 500 ML in EMPTY BAG 1 BAG IVPB STA (10:51)
--- NOTE | 2025-02-21 11:36 | P.CRDCN ---
History of Present Illness History of present illness: HISTORY OF PRESENT ILLNESS: This is a 54-year-old female with a past medical history significant for congestive heart failure, cardiomyopathy, paroxysmal atrial fibrillation, and AICD implantation. Patient follows in the office with Dr. Berrios. We have been asked to see the patient in consultation for bilateral edema. Patient examined at the bedside in the emergency room. Patient presented to the ER with generalized weakness. Patient reports sustaining a fall at home. She denies h aving any syncope. Patient states that she was diagnosed with bullous pemphigoid and has been seeing a quick print operator. He apparently took her off of her Lasix and her metoprolol and states these were contributing to it. Patient states she has been trying to call the cardiology office about a new diuretic but has not received a call back. Spoke with pharmacy this morning who states that all diuretics can potentially cause this. DIAGNOSTICS: - EKG reveals tachycardia with PVCs. - Chest xray mild interstitial prominence may be chronic. Correlate to exclude mild pulmonary vascular congestion. - Laboratory data: WBC 6.56. Hemoglobin 8.7. Platelet count 340. Sodium 137. Potassium 3.9. BUN 10. Creatinine 0.61. proBNP 1740. - Current home cardiac medications include amiodarone 200 mg daily, Eliquis 5 mg twice a day, Lipitor 80 mg daily. - Most recent echocardiogram obtained in August 2023 revealing ejection fraction 35 to 40%, global LV hypokinesis, trace to mild TR, mild to moderate MR - Cardiac catheterization history: 2008 revealing minimal CAD REVIEW OF SYSTEMS: At the time of my exam: CONSTITUTIONAL: Denies fever or chills. HEENT: Denies blurred vision, vision changes, or eye pain. Denies hemoptysis CARDIOVASCULAR: Denies chest pain. Denies orthopnea. Denies PND. Denies palpitations RESPIRATORY: Denies shortness of breath. GASTROINTESTINAL: Denies abdominal pain. Denies nausea or vomiting. HEMATOLOGIC: Denies bleeding disorders. GENITOURINARY: Denies any blood in urine. PHYSICAL EXAM: VITAL SIGNS: Reviewed. GENERAL: Well-developed in no acute distress. HEENT: Head is normocephalic. Pupils are equal, round. Sclerae anicteric. Mucous membranes of the mouth are moist. Neck supple. No JVD or thyromegaly LUNGS: Respirations even and unlabored. Lungs essentially clear to auscultation bilaterally. HEART: Regular rate and rhythm. S1 and S2 heard. ABDOMEN: Soft. Nondistended. Nontender. EXTREMITIES: Normal range of motion. No clubbing or cyanosis. Peripheral pulses intact. No lower extremity edema NEUROLOGIC: Awake and alert. Oriented x 3. ASSESSMENT: Status post mechanical fall Bullous pemphigoid Paroxysmal atrial fibrillation Nonischemic cardiomyopathy Chronic congestive heart failure with reduced EF History of AICD implantation PLAN: No need to repeat echocardiogram Spoke with pharmacy who stated that all diuretics have a possibility of contributing to bullous pemphigoid. Patient is currently not in CHF and does not require diuretics. She states that she uses diuretics because of lower extremity edema. Recommend nonpharmacological interventions for lower extremity edema such as compression stockings and elevating her lower extremities. Continue additional cardiac medications Further recommendations pending patient course Nurse practitioner note has been reviewed by physician. Signing provider agrees with the documented findings, assessment, and plan of care documented by BASE LOADER as a scribe. 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 Covid History of Any Multi-Drug Resistant Organisms: None Reported Past Surgical History: Pacemaker Additional Past Surgical History / Comment(s): Bilateral eye surgery for glaucoma Past Anesthesia/Blood Transfusion Reactions: No Reported Reaction Type of Cardiac Device: Permanent Pacemaker Device Placement Date:: 2012 Past Psychological History: Anxiety, Depression Smoking Status: Never smoker Past Alcohol Use History: Occasional Past Drug Use History: None Reported - Past Family History Father Family Medical History: Coronary Artery Disease (CAD), Myocardial Infarction ([place]) Additional Family Medical History / Comment(s): Father is 75 yrs old. He had a silent [place]. Mother Additional Family Medical History / Comment(s): Mother is at 32 yrs d/t cardiomyopathy Medications and Allergies Home Medications Medication Instructions Recorded Confirmed Type Atorvastatin Calcium [Lipitor] 80 mg PO DAILY 03/08/14 02/20/25 History levETIRAcetam [Keppra] 1,500 mg PO BID 03/22/17 02/20/25 History Amiodarone [Cordarone] 200 mg PO DAILY 02/22/20 02/20/25 History carBAMazepine [TEGretol] 200 mg PO TID 02/22/20 02/20/25 History Apixaban [Eliquis] 5 mg PO BID 07/21/21 02/20/25 History Gabapentin 600 mg PO TID 11/18/24 02/20/25 History QUEtiapine [SEROquel] 25 mg PO BID 11/18/24 02/20/25 History Doxycycline [Vibramycin] 100 mg PO BID #28 capsule 02/11/25 02/20/25 Rx Mupirocin 2% Oint [Bactroban 2% 1 applic TOPICAL TID #30 gm 02/11/25 02/20/25 Rx Oint] Dupilumab [Dupixent Pen] 300 mg SQ Q14D 02/20/25 02/20/25 History Vitamin C (Unknown Strength) 1 dose PO DAILY 02/20/25 02/20/25 History Vitamin D3 (Unknown Strength) 1 dose PO DAILY 02/20/25 02/20/25 History predniSONE See Taper PO DIRECTED 02/20/25 02/20/25 History Allergies Allergy/AdvReac Type Severity Reaction Status Date / Time cephalexin monohydrate Allergy Rash/Hives Verified 02/20/25 13:58 [From [facility]] Penicillins Allergy Anaphylaxis Verified 02/20/25 13:58 Physical Exam Vitals: Vital Signs Temp Pulse Pulse Pulse Pulse Pulse Resp 02/21/25 10:17 107 H 18 02/21/25 06:40 02/21/25 04:00 109 H 18 02/21/25 00:30 102 H 18 02/20/25 22:00 110 H 116 H 105 H 02/20/25 20:00 104 H 12 02/20/25 18:46 97 18 02/20/25 16:32 99 18 02/20/25 14:54 80 20 02/20/25 14:00 80 20 02/20/25 13:00 98 F 80 20 02/20/25 12:24 100 20 BP BP BP BP BP Pulse Ox 02/21/25 10:17 99/59 96 02/21/25 06:40 99/50 02/21/25 04:00 99/58 95 02/21/25 00:30 99/58 95 02/20/25 22:00 104/71 86/66 108/70 02/20/25 20:00 112/55 95 02/20/25 18:46 94/63 98 02/20/25 16:32 114/66 99 02/20/25 14:54 110/60 95 02/20/25 14:00 100/70 98 02/20/25 13:00 130/76 98 02/20/25 12:24 140/79 100 Intake and Output 02/20/25 02/21/25 02/21/25 22:59 06:59 14:59 Output Total 1 Balance -1 Output: Urine 1 Results 02/21/25 06:08 02/21/25 06:10 Cardiac Enzymes 02/20/25 02/21/25 Range/Units 10:02 06:10 AST 25 (14-36) U/L Troponin I 0.015 (0.000-0.034) ng/mL CBC 02/21/25 Range/Units 06:08 WBC 6.56 (4.50-10.00) 10*3/uL RBC 3.19 L (4.10-5.20) 10*6/uL Hgb 8.7 L D (12.0-15.0) g/dL Hct 28.8 L (37.2-46.3) % Plt Count 340 (140-440) 10*3/uL Comprehensive Metabolic Panel 02/21/25 Range/Units 06:10 Sodium 137 (137-145) mmol/L Potassium 3.9 (3.5-5.1) mmol/L Chloride 107 (98-107) mmol/L Carbon Dioxide 28 (22-30) mmol/L BUN 10 (7-17) mg/dL Creatinine 0.61 (0.52-1.04) mg/dL Glucose 85 (74-99) mg/dL Calcium 7.3 L (8.4-10.2) mg/dL Unconjugated Bilirubin 0.2 (0.0-1.1) mg/dL AST 25 (14-36) U/L ALT 18 (4-34) U/L Alkaline Phosphatase 55 (38-126) U/L Total Protein 4.7 L (6.3-8.2) g/dL Albumin 2.0 L (3.5-5.0) g/dL Current Medications Generic Name Dose Route Start Last Admin Trade Name Freq PRN Reason Stop Dose Admin Acetaminophen 325 mg 02/21/25 01:15 02/21/25 01:41 Acetaminophen Tab 325 Mg Tab PO 325 mg Q6HR PRN Administration Fever and/ or Pain Amiodarone HCl 200 mg 02/21/25 09:00 02/21/25 10:15 Amiodarone 200 Mg Tab PO 200 mg DAILY ADDIE Administration Apixaban 5 mg 02/21/25 09:00 02/21/25 10:13 Apixaban 5 Mg Tab PO 5 mg BID ADDIE Administration Protocol Atorvastatin Calcium 80 mg 02/21/25 09:00 02/21/25 10:14 Atorvastatin 80 Mg Tab PO 80 mg DAILY ADDIE Administration Carbamazepine 200 mg 02/21/25 09:00 02/21/25 10:14 Carbamazepine 200 Mg Tab PO 200 mg TID ADDIE Administration Famotidine 20 mg 02/21/25 09:00 02/21/25 10:15 Famotidine 20 Mg/2 Ml Vial IV 20 mg Q12HR ADDIE Administration Gabapentin 600 mg 02/21/25 16:00 Gabapentin 300 Mg Cap PO TID ADDIE Albumin Human 500 ml/ IV 500 mls @ 500 mls/hr 02/21/25 10:15 02/21/25 10:51 Solution IVPB 02/21/25 11:14 500 mls/hr ONCE STA Administration Protocol Levetiracetam 1,500 mg 02/21/25 09:00 02/21/25 10:14 Levetiracetam 750 Mg Tab PO 1,500 mg BID ADDIE Administration Midodrine 5 mg 02/20/25 21:41 Midodrine 5 Mg Tab PO AC-TID PRN Blood Pressure - Low Naloxone HCl 0.2 mg 02/20/25 15:25 Naloxone 0.4 Mg/Ml 1 Ml Vial IV Q2M PRN Opioid Reversal Prednisone 10 mg 02/21/25 10:15 02/21/25 10:30 Prednisone 10 Mg Tab PO 10 mg DAILY ADDIE Administration Quetiapine Fumarate 25 mg 02/21/25 09:00 02/21/25 10:15 Quetiapine 25 Mg Tab PO 25 mg BID ADDIE Administration Intake and Output 02/20/25 02/21/25 02/21/25 22:59 06:59 14:59 Output Total 1 Balance -1 Output: Urine 1 02/21/25 06:08 02/21/25 06:10
--- NOTE | 2025-02-21 14:16 | P.CNNES ---
History of Present Illness Consult date: 02/21/25 Requesting physician: Evonne Adamson Reason for Consult: acute/chronic left sided weakness, dysarthria, hx cva History of Present Illness: Patient is a 54-year-old right-handed female with history of CVA and residual left-sided weakness, who came to the hospital yesterday at 9:23 AM because of a fall. Patient states that yesterday she was on her feet, when she lost balance, fell and landed on her buttocks. She denies any dizziness or presyncopal symptoms. She did not pass out. She is positive that it was not a seizure. She denies any worsening of her baseline weakness or any new deficits. Patient states that she walks with a cane and feels okay. She does have a pacemaker. Dr. Torre placed the pacemaker. She denies any worsening of her baseline weakness. No change in her vision. She was brought to the hospital. Vital signs on arrival blood pressure 139/74, pulse rate 119, temperature 97.7. Patient has orthostatics checked, in the supine blood pressure 108/70, sitting 104/71 and standing 86/66 pulse rate was 105/110/116 respectively. Blood test shows normal WBC hemoglobin 10.5, basic metabolic panel is normal, hepatic panel normal, troponin negative. UA is negative. Chest x-ray showed mild interstitial prominence may be chronic. Correlate to exclude mild pulmonary vascular congestion. Otherwise no acute process. CT head revealed no acute intracranial process. Remote right large MCA territory infarct with encephalomalacia again. Remote left frontal lobe infarct with encephalomalacia. Additional small regions of encephalomalacia from prior injury involving the bilateral cerebellum. Nonspecific white matter changes, likely secondary to chronic small vessel ischemic disease. EKG showed sinus tachycardia with occasional ventricular premature complexes. Patient states she has history of CVA in 2007, which affected her left side. Patient has been seen by neurology team multiple times, the most last time was seen by myself on 09/10/2021 for altered mental status, seizure. Patient has bullous rash that started on 11/28/2024. She states that she has been diagnosed with bullous pemphigoid by Dr. Allen. EEG performed in the past revealed background slowing of at least moderate degree. This is suggestive of generalized cerebral dysfunction as can be seen with toxic metabolic encephalopathy or due to diffuse structural brain abnormality or postictal effect. No epileptiform activity was seen. Review of Systems All pertinent positive and negative review of systems mentioned in the HPI, ot herwise unremarkable. 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 Covid History of Any Multi-Drug Resistant Organisms: None Reported Past Surgical History: Pacemaker Additional Past Surgical History / Comment(s): Bilateral eye surgery for glaucoma Past Anesthesia/Blood Transfusion Reactions: No Reported Reaction Type of Cardiac Device: Permanent Pacemaker Device Placement Date:: 2012 Past Psychological History: Anxiety, Depression Smoking Status: Never smoker Past Alcohol Use History: Occasional Past Drug Use History: None Reported - Past Family History Father Family Medical History: Coronary Artery Disease (CAD), Myocardial Infarction ([place]) Additional Family Medical History / Comment(s): Father is 75 yrs old. He had a silent [place]. Mother Additional Family Medical History / Comment(s): Mother is at 32 yrs d/t cardiomyopathy Medications and Allergies Home Medications Medication Instructions Recorded Confirmed Type Atorvastatin Calcium [Lipitor] 80 mg PO DAILY 03/08/14 02/20/25 History levETIRAcetam [Keppra] 1,500 mg PO BID 03/22/17 02/20/25 History Amiodarone [Cordarone] 200 mg PO DAILY 02/22/20 02/20/25 History carBAMazepine [TEGretol] 200 mg PO TID 02/22/20 02/20/25 History Apixaban [Eliquis] 5 mg PO BID 07/21/21 02/20/25 History Gabapentin 600 mg PO TID 11/18/24 02/20/25 History QUEtiapine [SEROquel] 25 mg PO BID 11/18/24 02/20/25 History Doxycycline [Vibramycin] 100 mg PO BID #28 capsule 02/11/25 02/20/25 Rx Mupirocin 2% Oint [Bactroban 2% 1 applic TOPICAL TID #30 gm 02/11/25 02/20/25 Rx Oint] Dupilumab [Dupixent Pen] 300 mg SQ Q14D 02/20/25 02/20/25 History Vitamin C (Unknown Strength) 1 dose PO DAILY 02/20/25 02/20/25 History Vitamin D3 (Unknown Strength) 1 dose PO DAILY 02/20/25 02/20/25 History predniSONE See Taper PO DIRECTED 02/20/25 02/20/25 History Allergies Allergy/AdvReac Type Severity Reaction Status Date / Time cephalexin monohydrate Allergy Rash/Hives Verified 02/20/25 13:58 [From KePAX Streamline] Penicillins Allergy Anaphylaxis Verified 02/20/25 13:58 Physical Examination - Vital Signs Vital Signs: Vital Signs Temp Pulse Pulse Pulse Pulse Pulse Resp 02/21/25 10:17 107 H 18 02/21/25 06:40 02/21/25 04:00 109 H 18 02/21/25 00:30 102 H 18 02/20/25 22:00 110 H 116 H 105 H 02/20/25 20:00 104 H 12 02/20/25 18:46 97 18 02/20/25 16:32 99 18 02/20/25 14:54 80 20 02/20/25 14:00 80 20 02/20/25 13:00 98 F 80 20 02/20/25 12:24 100 20 BP BP BP BP BP Pulse Ox 02/21/25 10:17 99/59 96 02/21/25 06:40 99/50 02/21/25 04:00 99/58 95 02/21/25 00:30 99/58 95 02/20/25 22:00 104/71 86/66 108/70 02/20/25 20:00 112/55 95 02/20/25 18:46 94/63 98 02/20/25 16:32 114/66 99 02/20/25 14:54 110/60 95 02/20/25 14:00 100/70 98 02/20/25 13:00 130/76 98 02/20/25 12:24 140/79 100 Intake and Output 02/20/25 02/21/25 02/21/25 22:59 06:59 14:59 Output Total 1 Balance -1 Output: Urine 1 Patient is a middle-aged female, laying in the bed, in no acute distress. Patient is alert awake oriented to time place and person. Patient knows it is 02/21/2025 and that she is in [facility] imported on [place] and name of the current president Mr. Mejia. Speech and language functions are normal. Patient can name and repeat very well. No aphasia or dysarthria. Attention, concentration and fund of knowledge is adequate. On cranial nerve examination, pupils are equal, round and reacting to light, visual shetty are full on confrontation, with no neglect on double simultaneous stimulation. Extraocular muscles are intact with no nystagmus. Face is symmetric, tongue protrudes to the midline. Palatal elevation and sensation normal, hearing and shoulder shrug normal, facial sensation normal. On muscle strength testing, the strength is (right/left) deltoid 4+/3+, biceps 5/5, triceps 5/5, search developer 5/spastic hand in a search developer. Hip flexion is 4+5-bilaterally and ankle dorsiflexion are normal. Deep tendon reflexes are (right/left) biceps 2/2+, brachioradialis 2/2+, knees absent. Plantars are flat. Sensory to touch is equal, but she neglects the left side with double simulta neous stimulation. This neglect involves the left side of the face, arm and leg. Cerebellar function showed no ataxia for [id number] testing. No dysdiadochokinesia. No ataxia for [id number] testing on either side. Tone and bulk of muscles normal. Gait deferred.. On general examination, there is no carotid bruit or murmur, S1-S2 audible. Chest is clear on consultation. Abdomen is soft nontender. No organomegaly, bowel sounds present. Patient has moderate peripheral edema. Peripheral pulses could not be felt easily because of edema. Patient has bullous rash. She states that she has been diagnosed with bullous pemphigoid by Dr. Allen. Results - Laboratory Findings CBC and BMP: 02/21/25 06:08 02/21/25 06:10 Abnormal Lab Findings: Abnormal Labs 02/20/25 02/20/25 02/20/25 10:02 10:02 22:29 RBC 3.83 L Hgb 10.5 L Hct 34.9 L MCHC 30.1 L Plt Count 451 H MPV 9.0 L Lymphocytes # 0.85 L Glucose 171 H Calcium Total Protein 5.9 L Albumin 2.7 L Procalcitonin Ur Specific [place] 1.050 H 02/21/25 02/21/25 02/21/25 06:08 06:10 06:10 RBC 3.19 L Hgb 8.7 L D Hct 28.8 L MCHC 30.2 L Plt Count MPV 9.0 L Lymphocytes # Glucose Calcium 7.3 L Total Protein 4.7 L Albumin 2.0 L Procalcitonin 0.67 H Ur Specific [place] Assessment and Plan Assessment: * Status post accidental fall due to losing balance. Patient denies any presyncopal symptoms, loss of consciousness. She is positive it was not a s eizure, just accidental fall due to losing balance. * History of CVA with residual spastic left hemiparesis. * Bullous pemphigoid mainly over lower extremities. Follows up with dermatology. * Seizure disorder for long time, seizures in remission since 2009--no further seizures. * History of Atrial Fibrillation, on Eliquis. 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 * History of pacemaker. Plan: * CTA of head and neck revealed no evidence of dissection of the cervical internal carotid arteries or vertebral arteries or any evidence of significant stenosis at the carotid bifurcations. Moderate stenosis involving the cavernous portion of the internal carotid arteries bilaterally secondary to calcified plaque. No evidence of intracranial aneurysm. * Patient's examination is at baseline. She denies any worsening of weakness. * Continue Eliquis 5 mg twice daily for stroke prevention from A-fib. * Hemoglobin A1c, fasting lipid panel. * Continue seizure medications including Keppra 1500 mg twice daily, Tegretol 200 mg 3 times daily and gabapentin 600 mg 3 times daily. * We will check Tegretol and Keppra levels. * For bullous pemphigoid, patient to follow-up with her inspector automatic typewriter. * No other workup indicated at this time. * Neurologically clear for discharge. Time with Patient: Greater than 30
[2025-02-21] MEDS ORDERED: VANCOMYCIN IV PER PHARMACY 1 EACH MISC MISCELLANE PRN (14:29)
[2025-02-21] MEDS: VANCOMYCIN 1,250 MG in SODIUM CHLORIDE 0.9% 250 ML IVPB ONE (16:16)
[2025-02-21] MEDS: GABAPENTIN 300 MG CAP PO SCH (16:19)
[2025-02-21] MEDS: VANCOMYCIN 1,250 MG in SODIUM CHLORIDE 0.9% 250 ML IVPB SCH (21:25)
[2025-02-21] MEDS: NYSTATIN 100,000 UNIT/ML SUSP 500,000 UNIT/5 ML CUP PO SCH (21:26)
[2025-02-22] MEDS ORDERED: ZINC OXIDE PASTE (Z-GUARD) 1 APPLIC TOPICAL PRN (09:58)
--- NOTE | 2025-02-22 10:04 | P.CONS ---
History of Present Illness - Reason for Consult Consult date: 02/22/25 wound care - History of Present Illness This is a 54-year-old patient who was diagnosed bullous pemphigoid approximately 3 months ago she was on a tapering dose of prednisone. Patient has multiple open ulcerations that are limited to skin breakdown. No ulcerations appear to be infected no cellulitis noted. Patient states that she was given a cream by her doctor that she will sometimes utilize to the ulcerations. Review Of Systems: Constitutional: No fever, no chills, no night sweats. No weight change. No weakness, fatigue or lethargy. No daytime sleepiness. Integumentary:reports wounds, no lesions. No rash or pruritus. No unusual bruising. No change in hair or nails. Physical exam: General Appearance: Alert, cooperative, no distress, appears stated age. Skin: See HPI all other Skin color, texture, tugor normal, no rashes or lesions. Neurologic: Alert oriented x3 Assessment: 1. Multiple nonhealing ulcerations limited to skin breakdown 2. Buloous pemphigoid Plan: 1. Apply zinc barrier cream to the open ulcerations daily as needed May cover if patient is requesting. Thank for the consultation any questions please contact the wound care center DNP note has been reviewed and discussed with Dr. Izaguirre and the impression and plan of care has been directed as dictated. 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 Covid Skin condition. History of Any Multi-Drug Resistant Organisms: None Reported Past Surgical History: Pacemaker Additional Past Surgical History / Comment(s): Bilateral eye surgery for glaucoma Past Anesthesia/Blood Transfusion Reactions: No Reported Reaction Type of Cardiac Device: Permanent Pacemaker Device Placement Date:: 2012 Past Psychological History: Anxiety, Depression Additional Psychological History / Comment(s): Pt resides with her boyfriend. She is disabled. She does not drive, she uses the bus system. Smoking Status: Former smoker, Never smoker Past Alcohol Use History: Occasional Additional Past Alcohol Use History / Comment(s): Pt started smoking in 1992 and has been an occasional smoker over the years. However, when reviewing history with her father he says he is not aware that she spokes Past Drug Use History: None Reported - Past Family History Father Family Medical History: Coronary Artery Disease (CAD), Myocardial Infarction (GA) Additional Family Medical History / Comment(s): Father is 75 yrs old. He had a silent GA. Mother Additional Family Medical History / Comment(s): Mother is at 32 yrs d/t cardiomyopathy Medications and Allergies Home Medications Medication Instructions Recorded Confirmed Type Atorvastatin Calcium [Lipitor] 80 mg PO DAILY 03/08/14 02/20/25 History levETIRAcetam [Keppra] 1,500 mg PO BID 03/22/17 02/20/25 History Amiodarone [Cordarone] 200 mg PO DAILY 02/22/20 02/20/25 History carBAMazepine [TEGretol] 200 mg PO TID 02/22/20 02/20/25 History Apixaban [Eliquis] 5 mg PO BID 07/21/21 02/20/25 History Gabapentin 600 mg PO TID 11/18/24 02/20/25 History QUEtiapine [SEROquel] 25 mg PO BID 11/18/24 02/20/25 History Doxycycline [Vibramycin] 100 mg PO BID #28 capsule 02/11/25 02/20/25 Rx Mupirocin 2% Oint [Bactroban 2% 1 applic TOPICAL TID #30 gm 02/11/25 02/20/25 Rx Oint] Dupilumab [Dupixent Pen] 300 mg SQ Q14D 02/20/25 02/20/25 History Vitamin C (Unknown Strength) 1 dose PO DAILY 02/20/25 02/20/25 History Vitamin D3 (Unknown Strength) 1 dose PO DAILY 02/20/25 02/20/25 History predniSONE See Taper PO DIRECTED 02/20/25 02/20/25 History Allergies Allergy/AdvReac Type Severity Reaction Status Date / Time cephalexin monohydrate Allergy Rash/Hives Verified 02/20/25 13:58 [From Keflex] Penicillins Allergy Anaphylaxis Verified 02/20/25 13:58 Physical Exam Vitals: Vital Signs Temp Pulse Pulse Resp BP BP BP 02/22/25 04:10 16 02/22/25 04:00 127 H 16 101/59 02/21/25 20:00 98.7 F 106 H 16 97/60 02/21/25 18:19 80 16 105/72 02/21/25 17:00 98.8 F 106 H 19 101/60 02/21/25 13:55 113 H 18 98/59 02/21/25 10:17 107 H 18 99/59 Pulse Ox 02/22/25 04:10 90 L 02/22/25 04:00 86 L 02/21/25 20:00 90 L 02/21/25 18:19 92 L 02/21/25 17:00 93 L 02/21/25 13:55 97 02/21/25 10:17 96 Intake and Output 02/21/25 02/22/25 02/22/25 22:59 06:59 14:59 Intake Total 540 Balance 540 Intake: Oral 540 Other: Voiding Method Toilet Toilet Weight 64.41 kg 62.5 kg Results CBC & Chem 7: 02/21/25 06:08 02/21/25 06:10 Labs: Abnormal Lab Results - Last 24 Hours (Table) 02/21/25 Range/Units 14:49 Carbamazepine 12.8 H (4.0-12.0) UG/ML Assessment and Plan (1) Bullous pemphigoid Current Visit: Yes Status: Acute Code(s): L12.0 - BULLOUS PEMPHIGOID SNOMED Code(s): 65652765 (2) Skin ulcer of multiple sites, limited to breakdown of skin Current Visit: Yes Status: Acute Code(s): L98.491 - NON-PRS CHRONIC ULCER SKIN/ SITES LIMITED TO BRKDWN SKIN SNOMED Code(s): 79206556
[2025-02-22 11:20] LABS: Basophils # (A) 0.05 10*3/uL (0.00-0.10); Basophils % (A) 0.5 %; Eosinophils # (A) 1.69 10*3/uL (0.04-0.35); Eosinophils % (A) 15.4 %; HCT 31.5 % (37.2-46.3); HGB 9.4 g/dL (12.0-15.0); Lymphocytes # (A) 1.37 10*3/uL (0.90-5.00); Lymphocytes % (A) 12.5 %; MCH 28.0 pg (27.0-32.0); MCHC 29.8 g/dL (32.0-37.0); MCV 93.8 fL (80.0-97.0); Monocytes # (A) 0.44 10*3/uL (0.20-1.00); Monocytes % (A) 4.0 %; Neutrophils # (A) 7.39 10*3/uL (1.80-7.70); Neutrophils % (A) 67.1 %; Platelet Count 350 10*3/uL (140-440); RBC 3.36 10*6/uL (4.10-5.20); RDW 17.2 % (11.5-14.5); WBC 11.00 10*3/uL (4.50-10.00)
[2025-02-22 11:41] LABS: African American GFR (CKD) >90 (>60 ml/min/1.73 sqM); Anion Gap 8 mmol/L; Blood Urea Nitrogen 11 mg/dL (7-17); Calcium 7.3 mg/dL (8.4-10.2); Carbon Dioxide 23 mmol/L (22-30); Chloride 107 mmol/L (98-107); Glucose 89 mg/dL (74-99); Non-African American GFR(CKD) >90 (>60 ml/min/1.73 sqM); Potassium 4.2 mmol/L (3.5-5.1); Sodium 138 mmol/L (137-145)
--- NOTE | 2025-02-22 11:52 | P.PN ---
Subjective HISTORY OF PRESENT ILLNESS: This is a 54-year-old female with a past medical history significant for congestive heart failure, cardiomyopathy, paroxysmal atrial fibrillation, and AICD implantation. Patient follows in the office with Dr. Berrios. We have been asked to see the patient in consultation for bilateral edema. Patient examined at the bedside in the emergency room. Patient presented to the ER with generalized weakness. Patient reports sustaining a fall at home. She denies having any syncope. Patient states that she was diagnosed with bullous pemphigoid and has been seeing a wire coater. He apparently took her off of her Lasix and her metoprolol and states these were contributing to it. Patient states she has been trying to call the cardiology office about a new diuretic but has not received a call back. Spoke with pharmacy this morning who states that all diuretics can potentially cause this. DIAGNOSTICS: - EKG reveals tachycardia with PVCs. - Chest xray mild interstitial prominence may be chronic. Correlate to exclude mild pulmonary vascular congestion. - Laboratory data: WBC 6.56. Hemoglobin 8.7. Platelet count 340. Sodium 137. Potassium 3.9. BUN 10. Creatinine 0.61. proBNP 1740. - Current home cardiac medications include amiodarone 200 mg daily, Eliquis 5 mg twice a day, Lipitor 80 mg daily. - Most recent echocardiogram obtained in August 2023 revealing ejection fraction 35 to 40%, global LV hypokinesis, trace to mild TR, mild to moderate MR - Cardiac catheterization history: 2008 revealing minimal CAD 02/22/2025 Patient examined this morning at bedside. Patient denies chest pain or pressu re. She denies shortness of breath. Vital signs are stable. PHYSICAL EXAM: VITAL SIGNS: Reviewed. GENERAL: Well-developed in no acute distress. HEENT: Head is normocephalic. Pupils are equal, round. Sclerae anicteric. Mucous membranes of the mouth are moist. Neck supple. No JVD or thyromegaly LUNGS: Respirations even and unlabored. Lungs essentially clear to auscultation bilaterally. HEART: Regular rate and rhythm. S1 and S2 heard. ABDOMEN: Soft. Nondistended. Nontender. EXTREMITIES: Normal range of motion. No clubbing or cyanosis. Peripheral pulses intact. No lower extremity edema NEUROLOGIC: Awake and alert. Oriented x 3. ASSESSMENT: Status post mechanical fall Bullous pemphigoid Paroxysmal atrial fibrillation Nonischemic cardiomyopathy Chronic congestive heart failure with reduced EF History of AICD implantation PLAN: No need to repeat echocardiogram Spoke with pharmacy who stated that all diuretics have a possibility of contributing to bullous pemphigoid. Patient is currently not in CHF and does not require diuretics. She states that she uses diuretics because of lower extremity edema. Recommend nonpharmacological interventions for lower extremity edema such as compression stockings and elevating her lower extremities. Continue additional cardiac medications No further inpatient recommendations from a cardiac standpoint We will sign off. Please reconsult if needed. Nurse practitioner note has been reviewed by physician. Signing provider agrees with the documented findings, assessment, and plan of care documented by [employer] as a scribe. Objective - Vital Signs Vital signs: Vital Signs Temp 98.5 F 02/22/25 09:45 Pulse 109 H 02/22/25 09:45 Resp 16 02/22/25 09:45 BP 112/72 02/22/25 09:45 Pulse Ox 91 L 02/22/25 09:45 FiO2 Intake & Output 02/21/25 02/22/25 02/22/25 18:59 06:59 18:59 Intake Total 540 510 Balance 540 510 Weight 64.41 kg 62.5 kg Intake: Oral 540 510 Other: Voiding Method Toilet Toilet # Voids 1 - Labs CBC & Chem 7: 02/22/25 10:45 02/22/25 10:45 Labs: Abnormal Lab Results - Last 24 Hours (Table) 02/21/25 02/22/25 02/22/25 Range/Units 14:49 10:45 10:45 WBC 11.00 H (4.50-10.00) 10*3/uL RBC 3.36 L (4.10-5.20) 10*6/uL Hgb 9.4 L (12.0-15.0) g/dL Hct 31.5 L (37.2-46.3) % MCHC 29.8 L (32.0-37.0) g/dL Immature Gran # 0.06 H (0.00-0.04) 10*3/uL Eosinophils # 1.69 H (0.04-0.35) 10*3/uL Calcium 7.3 L (8.4-10.2) mg/dL Carbamazepine 12.8 H (4.0-12.0) UG/ML
[2025-02-22 15:46] LABS: Cholesterol 102.00 mg/dL (0.00-200.00); HDL Cholesterol 36.00 mg/dL (40.00-60.00); LDL Cholesterol,Calculated 48.8 mg/dL (0.0-131.0); Triglycerides 86.00 mg/dL (0.00-149.00); VLDL Calculation 17.20 mg/dL (5.00-40.00)
--- NOTE | 2025-02-22 17:26 | P.PN ---
Subjective Progress Note Date: 02/21/25 Principal diagnosis: Reason for follow-up is multiple skin lesion question of cellulitis and multiple antibiotic allergies Patient is a 54-year-old female with a past medical history significant for PE seizure disorder coronary artery disease has been diagnosed with bullous pemphigoid patient has been brought into the hospital concerning for weakness patient did have multiple skin lesions concerning for cellulitis prompting this consultation. On today's evaluation that is 02/21/2025,the patient remains to be afebrile, patient is on 3 L nasal cannula supplemental oxygen and denies any shortness of breath no chest pain or cough.Patient denies having any nausea or vomiting, no abdominal pain and no diarrhea has been reported, denies any worsening pain with the skin lesion Patient white count 6.56 creatinine 0.61 Pro-Regis is elevated to 0.67 Objective - Vital Signs Vital signs: Vital Signs Temp 98 F 02/20/25 13:00 Pulse 113 H 02/21/25 13:55 Resp 18 02/21/25 13:55 BP 98/59 02/21/25 13:55 Pulse Ox 97 02/21/25 13:55 FiO2 Intake & Output 02/20/25 02/21/25 02/21/25 18:59 06:59 18:59 Output Total 1 Balance -1 Weight 64.41 kg Output: Urine 1 - Exam GENERAL DESCRIPTION: Middle-age female lying in bed in no distress RESPIRATORY SYSTEM: Unlabored breathing , decreased breath sounds at bases HEART: S1 S2 regular rate and rhythm , ABDOMEN: Soft , no tenderness SKIN: Multiple ulcerated lesions but no significant slough tissue did have a mild smell to it today - Labs CBC & Chem 7: 02/22/25 10:45 02/22/25 10:45 Labs: Abnormal Lab Results - Last 24 Hours (Table) 02/20/25 02/21/25 02/21/25 Range/Units 22:29 06:08 06:10 RBC 3.19 L (4.10-5.20) 10*6/uL Hgb 8.7 L D (12.0-15.0) g/dL Hct 28.8 L (37.2-46.3) % MCHC 30.2 L (32.0-37.0) g/dL MPV 9.0 L (9.5-12.2) fL Calcium 7.3 L (8.4-10.2) mg/dL Total Protein 4.7 L (6.3-8.2) g/dL Albumin 2.0 L (3.5-5.0) g/dL Procalcitonin (0.02-0.50) ng/mL Ur Specific Calera 1.050 H (1.001-1.035) // Range/Units 06:10 RBC (4.10-5.20) 10*6/uL Hgb (12.0-15.0) g/dL Hct (37.2-46.3) % MCHC (32.0-37.0) g/dL MPV (9.5-12.2) fL Calcium (8.4-10.2) mg/dL Total Protein (6.3-8.2) g/dL Albumin (3.5-5.0) g/dL Procalcitonin 0.67 H (0.02-0.50) ng/mL Ur Specific Calera (1.001-1.035) Assessment and Plan (1) Skin ulcer of multiple sites Current Visit: Yes Status: Acute Code(s): L98.499 - NON-PRESSURE CHRONIC ULCER OF SKIN OF SITES W UNSP SEVERITY SNOMED Code(s): 32208545 (2) Bullous pemphigoid Current Visit: Yes Status: Acute Code(s): L12.0 - BULLOUS PEMPHIGOID SNOMED Code(s): 98634322 (3) Allergy to multiple antibiotics Current Visit: No Status: Acute Code(s): Z88.1 - ALLERGY STATUS TO OTHER A NTIBIOTIC AGENTS SNOMED Code(s): 513185065 Plan: 1 Patient presented to hospital with fall due to generalized weakness which could be related to possible prerenal as the patient and daughter mention air conditioning for the last few days which has been really hot and the patient will drinking enough fluid patient did have multiple skin lesions but there is no slough tissue no surrounding redness patient not running any fever no elevated white count clinically doubt any active cellulitis 2-multiple antibiotic allergies that would limit the number of antibiotics safe to use 3-patient noticed to have elevated procalcitonin as as well as foul-smelling to the skin lesion we will add vancomycin empirically and see clinical response Dictation was produced using [employer] software. please excuse any grammatical, word or spelling errors.
--- NOTE | 2025-02-22 17:27 | P.PN ---
Subjective Progress Note Date: 02/22/25 Principal diagnosis: Reason for follow-up is multiple skin lesion question of cellulitis and multiple antibiotic allergies Patient is a 54-year-old female with a past medical history significant for PE seizure disorder coronary artery disease has been diagnosed with bullous pemphigoid patient has been brought into the hospital concerning for weakness patient did have multiple skin lesions concerning for cellulitis prompting this consultation. On today's evaluation that is 02/22/2025, the patient continues to be afebrile, the patient is on 4 L nasal cannula oxygen and breathing comfortably, the Pt sleepy though arousable however did not provide any history no vomiting or diarrhea has been reported. Patient white count is 11,000 creatinine 0.62 urine growing gram-negative but UA was negative Objective - Vital Signs Vital signs: Vital Signs Temp 99.5 F 02/22/25 15:45 Pulse 111 H 02/22/25 15:45 Resp 18 02/22/25 15:45 BP 97/62 02/22/25 15:45 Pulse Ox 92 L 02/22/25 15:45 FiO2 Intake & Output 02/21/25 02/22/25 02/22/25 18:59 06:59 18:59 Intake Total 540 510 Balance 540 510 Weight 64.41 kg 62.5 kg Intake: Oral 540 510 Other: Voiding Method Toilet Toilet # Voids 2 - Exam GENERAL DESCRIPTION: Middle-age female lying in bed in no distress RESPIRATORY SYSTEM: Unlabored breathing , decreased breath sounds at bases HEART: S1 S2 regular rate and rhythm , ABDOMEN: Soft , no tenderness SKIN: Multiple ulcerated lesions but no significant slough tissue did have a mild smell to it today - Labs CBC & Chem 7: 02/22/25 10:45 02/22/25 10:45 Labs: Abnormal Lab Results - Last 24 Hours (Table) 02/21/25 02/22/25 02/22/25 Range/Units 14:49 10:45 10:45 WBC 11.00 H (4.50-10.00) 10*3/uL RBC 3.36 L (4.10-5.20) 10*6/uL Hgb 9.4 L (12.0-15.0) g/dL Hct 31.5 L (37.2-46.3) % MCHC 29.8 L (32.0-37.0) g/dL Immature Gran # 0.06 H (0.00-0.04) 10*3/uL Eosinophils # 1.69 H (0.04-0.35) 10*3/uL Calcium 7.3 L (8.4-10.2) mg/dL HDL Cholesterol 36.00 L (40.00-60.00) mg/dL Carbamazepine 12.8 H (4.0-12.0) UG/ML Microbiology - Last 24 Hours (Table) 02/21/25 01:04 Urine Culture - Preliminary Urine,Catheterized Gram Neg Bacilli Assessment and Plan (1) Skin ulcer of multiple sites Current Visit: Yes Status: Acute Code(s): L98.499 - NON-PRESSURE CHRONIC ULCER OF SKIN OF SITES W UNSP SEVERITY SNOMED Code(s): 17624530 (2) Bullous pemphigoid Current Visit: Yes Status: Acute Code(s): L12.0 - BULLOUS PEMPHIGOID SNOMED Code(s): 94733125 (3) Allergy to multiple antibiotics Current Visit: No Status: Acute Code(s): Z88.1 - ALLERGY STATUS TO OTHER ANTIBIOTIC AGENTS SNOMED Code(s): 356476929 Plan: 1 Patient presented to hospital with fall due to generalized weakness which could be related to possible prerenal as the patient and daughter mention air conditioning for the last few days which has been really hot and the patient will drinking enough fluid patient did have multiple skin lesions but there is no slough tissue no surrounding redness patient not running any fever no elevated white count clinically doubt any active cellulitis 2-multiple antibiotic allergies that would limit the number of antibiotics safe to use 3-patient noticed to have elevated procalcitonin as as well as foul-smelling to the skin lesion vancomycin has been added continue local wound care per the wound care physician 4-urine culture with gram-negative corresponding UA negative no need to add further antibiotic therapy at this point Dictation was produced using [employer] dictation software. please excuse any grammatical, word or spelling errors.
[2025-02-22] MEDS: ALBUMIN HUMAN 5% 500 ML in EMPTY BAG 1 BAG IVPB STA (17:46)
--- NOTE | 2025-02-22 18:10 | P.PN ---
Subjective Progress Note Date: 02/22/25 Patient was seen for a follow-up. Patient is laying comfortably in the bed. She is asleep. On waking up, she offers no complaints. Objective - Vital Signs Vital signs: Vital Signs Temp 99.5 F 02/22/25 15:45 Pulse 111 H 02/22/25 15:45 Resp 18 02/22/25 15:45 BP 97/62 02/22/25 15:45 Pulse Ox 92 L 02/22/25 15:45 FiO2 Intake & Output 02/21/25 02/22/25 02/22/25 18:59 06:59 18:59 Intake Total 540 510 Balance 540 510 Weight 64.41 kg 62.5 kg Intake: Oral 540 510 Other: Voiding Method Toilet Toilet # Voids 2 - Exam Unchanged. Detailed examination deferred. - Labs CBC & Chem 7: 02/22/25 10:45 02/22/25 10:45 Labs: Abnormal Lab Results - Last 24 Hours (Table) 02/21/25 02/22/25 02/22/25 Range/Units 14:49 10:45 10:45 WBC 11.00 H (4.50-10.00) 10*3/uL RBC 3.36 L (4.10-5.20) 10*6/uL Hgb 9.4 L (12.0-15.0) g/dL Hct 31.5 L (37.2-46.3) % MCHC 29.8 L (32.0-37.0) g/dL Immature Gran # 0.06 H (0.00-0.04) 10*3/uL Eosinophils # 1.69 H (0.04-0.35) 10*3/uL Calcium 7.3 L (8.4-10.2) mg/dL HDL Cholesterol 36.00 L (40.00-60.00) mg/dL Carbamazepine 12.8 H (4.0-12.0) UG/ML Microbiology - Last 24 Hours (Table) 02/21/25 01:04 Urine Culture - Preliminary Urine,Catheterized Gram Neg Bacilli Assessment and Plan Assessment: * Status post accidental fall due to losing balance. Patient denies any presyncopal symptoms, loss of consciousness. She is positive it was not a seizure, just accidental fall due to losing balance. * History of CVA with residual spastic left hemiparesis. * Bullous pemphigoid mainly over lower extremities. Follows up with dermatology. * Seizure disorder for long time, seizures in remission since 2009--no further seizures. * History of Atrial Fibrillation, on Eliquis. * History of multiple strokes with residual weakness over left side and uses cane at baseline * History of DVT, on anticoagulation * Hypothyroidism * History of 4 mm saccular aneurysm involving supraclinoid right ICA prior to t he carotid terminus. * History of pacemaker. Plan: * CTA of head and neck revealed no evidence of dissection of the cervical internal carotid arteries or vertebral arteries or any evidence of significant stenosis at the carotid bifurcations. Moderate stenosis involving the cavernous portion of the internal carotid arteries bilaterally secondary to calcified plaque. No evidence of intracranial aneurysm. * Patient's examination is at baseline. She denies any worsening of weakness. * Continue Eliquis 5 mg twice daily for stroke prevention from A-fib. * Hemoglobin A1c 5.6, fasting lipid panel with cholesterol 102, LDL 48, HDL 36 and triglycerides 86. Lipids are well-controlled. * Continue seizure medications including Keppra 1500 mg twice daily, Tegretol 200 mg 3 times daily and gabapentin 600 mg 3 times daily. * Tegretol 12.8 (4-12) and Keppra 50.6 (3-60). Patient states that she has been on these medications since 2008 tolerating it well. She does not believe rashes from these medications. Patient wishes to continue same dose of her seizure medications. * For bullous pemphigoid, patient to follow-up with her power superintendent. Patient states power superintendent mentioned that rash was from metoprolol, which they have discontinued. * No other workup indicated at this time. * Neurologically clear for discharge.
--- NOTE | 2025-02-23 00:08 | P.PN ---
Subjective This is a pleasant 54 years old female who was recently diagnosed with bullous pemphigoid 3 months ago when she is sent from this facility to [facility], she had a biopsy followed by treatment with doxycycline and taper prednisone over 3 weeks. Also she has extensive long history of CHF and seizure disorder. She was previously in the ICU for severe sepsis. Now presents because of generalized weakness. Patient states she went and fell today while she was trying to get up to go to the restroom she found a green chair on her way she was too weak to move with so she fell on her buttocks she could not get up as usual so she called the family who helped her and called EMS. Patient stayed on the floor for about 25 minutes as she explains. Denies any abdominal pain vomiting or diarrhea Denies dysuria urgency but states she has not been since yesterday and she has been drinking a lot of water for this reason Denies chest pain or dyspnea or coughing. No headache dizziness She is a known case of previous stroke and severe left hemiparesis, patient states it is worse than before this time. Also there was some concern from some slurred speech but no double vision. Patient complains from feeling swollen in her legs She has extensive bullous disease, majority of them are ruptured throughout her trunk and extremities and there is surrounding with erythema more extensive edema in the lower extremities bilaterally. However there is no purulent discharge. No significant tenderness in this erythematous area Her corporate representative Dr. Noriega neurologist is Dr. quiroz Patient with no fever blood pressure slightly on the low side but patient is symptomatic Blood pressure is fluctuation slightly on the low side Hemoglobin 10 WBC normal 8.6. Rest of labs unremarkable including electrolytes proBNP 1740 CT of the head and neck showing moderate stenosis of bilateral internal carotid arteries CT of the brain showing remote right large MCA territory infarct with encephalomalacia and remote left frontal infarct with encephalomalacia and bilateral cerebellar encephalomalacia Chest x-ray showing mild interstitial prominence may be bronchitis rule out mild pulmonary vascular congestion 02/21 Patient awake alert She looks hypovolemic with positive orthostatic vitals, yesterday we will give her a bolus of 500 cc. Albumin dropped from 2.7 down to 2.0. Patient has slightly worse leg swelling. She has multiple friable and ruptured bullae on the trunk and extremities with mild erythema surrounding these bullae especially in the lower extremities. These are chronic for the last 3 months diagnosed with bullous pemphigoid. Patient states that she took the steroids and that did not help much. She denies chest pain or dyspnea. No abdominal pain or vomiting. Patient currently not on antibiotics per ID team recommendation to keep monitoring while off antibiotics. No fever. Patient was on doxycycline for her bullous lesions at [facility] not sure if she needed for now, keep holding doxycycline. Cardiology is going to evaluate the patient. Neurology service also on the case however patient has chronic hemiplegia, and this morning she is not sure if it is left hemiplegia is at baseline or worse, however is severe and does not make much difference. No slurred speech no blurry vision. 02/22 Patient is looks tired lethargic Kirlin in bed and was shivering in the morning and developing fever also she is tachycardic and blood pressure is soft No chest pain or abdominal pain Still has erythema and swelling of both lower extremities suspected secondary to cellulitis, MRSA suspected and currently she is on IV vancomycin with infectious disease team recommendation She has good urine output and creatinine within the reference range. We give her a bolus of albumin given her hypoalbuminemia also if blood pressure remains low may consider a bolus of normal saline later on Midodrine was prescribed on admission as needed for hypotension but was not given by staff despite low blood pressure therefore we are going to switch it to standing dose Monitor labs and electrolytes and vitals closely Active Medications Generic Name Dose Route Start Last Admin Trade Name Freq PRN Reason Stop Dose Admin Acetaminophen 325 mg 02/21/25 01:15 02/22/25 20:23 Acetaminophen Tab 325 Mg Tab PO 325 mg Q6HR PRN Administration Fever and/ or Pain Amiodarone HCl 200 mg 02/21/25 09:00 02/22/25 09:35 Amiodarone 200 Mg Tab PO 200 mg DAILY ADDIE Administration Apixaban 5 mg 02/21/25 09:00 02/22/25 20:23 Apixaban 5 Mg Tab PO 5 mg BID ADDIE Administration Protocol Atorvastatin Calcium 80 mg 02/21/25 09:00 02/22/25 09:35 Atorvastatin 80 Mg Tab PO 80 mg DAILY ADDIE Administration Carbamazepine 200 mg 02/21/25 09:00 02/22/25 20:23 Carbamazepine 200 Mg Tab PO 200 mg TID ADDIE Administration Famotidine 20 mg 02/21/25 09:00 02/22/25 20:23 Famotidine 20 Mg/2 Ml Vial IV 20 mg Q12HR ADDIE Administration Gabapentin 600 mg 02/21/25 16:00 02/22/25 20:23 Gabapentin 300 Mg Cap PO 600 mg TID ADDIE Administration Vancomycin HCl 1,250 mg/ 250 mls @ 125 mls/hr 02/21/25 23:00 02/22/25 23:14 Sodium Chloride IVPB 125 mls/hr Q12H ADDIE Administration Albumin Human 500 ml/ IV 500 mls @ 500 mls/hr 02/23/25 00:30 Solution IVPB 02/23/25 01:29 ONCE ONE Protocol Levetiracetam 1,500 mg 02/21/25 09:00 02/22/25 20:23 Levetiracetam 750 Mg Tab PO 1,500 mg BID ADDIE Administration Midodrine 5 mg 02/23/25 00:12 Midodrine 5 Mg Tab PO AC-TID ADDIE Miscellaneous Information 0 each 02/23/25 10:00 Vancomycin Trough Due 1 Each Misc MISCELLANE 02/23/25 10:01 DIRECTED ONE Naloxone HCl 0.2 mg 02/20/25 15:25 Naloxone 0.4 Mg/Ml 1 Ml Vial IV Q2M PRN Opioid Reversal Nystatin 500,000 unit 02/21/25 18:00 02/22/25 20:23 Nystatin 100,000 Unit/Ml Susp 500,000 Unit/5 Ml Cup PO 500,000 unit QID ADDIE Administration Protocol Petrolatum 1 applic 02/22/25 09:58 Zinc Oxide Paste (Z-Guard) 1 Applic TOPICAL DAILY PRN Wound Healing Protocol Prednisone 10 mg 02/21/25 10:15 02/22/25 09:35 Prednisone 10 Mg Tab PO 10 mg DAILY ADDIE Administration Quetiapine Fumarate 25 mg 02/21/25 09:00 02/22/25 20:23 Quetiapine 25 Mg Tab PO 25 mg BID ADDIE Administration Objective - Vital Signs Vital signs: Vital Signs Temp 98.5 F 02/22/25 09:45 Pulse 129 H 02/22/25 14:00 Resp 16 02/22/25 14:00 BP 117/84 02/22/25 12:00 Pulse Ox 90 L 02/22/25 12:00 FiO2 Intake & Output 02/21/25 02/22/25 02/22/25 18:59 06:59 18:59 Intake Total 540 510 Balance 540 510 Weight 64.41 kg 62.5 kg Intake: Oral 540 510 Other: Voiding Method Toilet Toilet # Voids 1 - Exam GENERAL: The patient is alert and oriented x3, not in any acute distress. Well developed, well nourished. HEENT: Pupils are round and equally reacting to light. EOMI. No scleral icterus. No conjunctival pallor. Normocephalic, atraumatic. No pharyngeal erythema. No thyromegaly. CARDIOVASCULAR: S1 and S2 present. No murmurs, rubs, or gallops. PULMONARY: Chest is clear to auscultation, no wheezing , no crackles. ABDOMEN: Soft, nontender, nondistended, normoactive bowel sounds. No palpable organomegaly. MUSCULOSKELETAL: No joint swelling or deformity. EXTREMITIES: No cyanosis, clubbing, or pedal edema. -Multiple eroded bullae and friable bullae with surrounding erythema throughout trunk and extremities ( bullous pemphigoid ) -NEUROLOGICAL: Gross neurological examination did not reveal any focal deficits. sever left hemiparesis (old per pt) SKIN: No rashes. no petechiae. - Labs CBC & Chem 7: 02/22/25 10:45 02/22/25 10:45 Labs: Abnormal Lab Results - Last 24 Hours (Table) 02/21/25 02/22/25 02/22/25 Range/Units 14:49 10:45 10:45 WBC 11.00 H (4.50-10.00) 10*3/uL RBC 3.36 L (4.10-5.20) 10*6/uL Hgb 9.4 L (12.0-15.0) g/dL Hct 31.5 L (37.2-46.3) % MCHC 29.8 L (32.0-37.0) g/dL Immature Gran # 0.06 H (0.00-0.04) 10*3/uL Eosinophils # 1.69 H (0.04-0.35) 10*3/uL Calcium 7.3 L (8.4-10.2) mg/dL Carbamazepine 12.8 H (4.0-12.0) UG/ML Microbiology - Last 24 Hours (Table) 02/21/25 01:04 Urine Culture - Preliminary Urine,Catheterized Gram Neg Bacilli Assessment and Plan Assessment: Severe sepsis Bilateral lower extremity cellulitis thought secondary to MRSA Hypotension secondary to above Worsening weakness on the left side associated with fall without syncope and transient slurred speech and some swallowing difficulty, rule out new stroke or worsening stroke Bullous pemphigoid with multiple eroded and friable bullae throughout the trunk and extremities with surrounding erythema on doxycycline and prednisone previously Cardiomyopathy with ejection fraction 35% Coronary artery disease History of PE History of stroke with persistent hemiplegia Moderate bilateral internal carotid artery stenosis Seizure disorder with history of breakthrough seizure Generalized weakness Plan: Continue with albumin 5 mg bolus of 500 cc and possibly normal saline bolus Continue with IV vancomycin and follow-up culture results Patient follow-up with emergency preparedness manager as an outpatient for her bullous lesions Midodrine added Cardiology team consulted for her cardiomyopathy Wound team consult Neurology team consult Labs and medication were reviewed.. Continue same treatment. Continue with symptomatic treatment. Resume home medication. Monitor labs and vitals. DVT and GI prophylaxis. Further recommendations as per clinical course of the patient DVT prophylaxis: Eliquis GI Prophylaxis: Pepcid PT/OT: Pending Prognosis is guarded
[2025-02-23] MEDS: MIDODRINE 5 MG TAB PO SCH (00:26)
[2025-02-23] MEDS: ALBUMIN HUMAN 5% 500 ML in EMPTY BAG 1 BAG IVPB ONE (01:21)
[2025-02-23 03:21] LABS: Glucose,Whole Blood 191 mg/dL (70-110)
[2025-02-23 03:53] LABS: Glucose,Whole Blood 176 mg/dL (70-110)
[2025-02-23] MEDS: CISATRACURIUM 2 MG/ML 5 ML VIAL IV ONE (04:15)
[2025-02-23] MEDS: FUROSEMIDE 10 MG/ML 4 ML VIAL IV SCH (04:15)
[2025-02-23] MEDS: FUROSEMIDE 10 MG/ML 4 ML VIAL ONE (04:16)
[2025-02-23] MEDS: CISATRACURIUM 200 MG in SODIUM CHLORIDE 0.9% 180 ML IV SCH (04:45)
[2025-02-23 04:51] LABS: ABG HCO3 27 mmol/L (21-25); ABG PCO2 63 mmHg (35-45); ABG PH 7.23 (7.35-7.45); ABG PO2 151 mmHg (83-108); ABG TCO2 29 mmol/L (19-24)
[2025-02-23 04:53] LABS: Allen Test Performed? no
[2025-02-23 05:04] LABS: Basophils # (A) 0.09 10*3/uL (0.00-0.10); Basophils % (A) 0.4 %; Eosinophils # (A) 0.41 10*3/uL (0.04-0.35); Eosinophils % (A) 1.7 %; HCT 30.8 % (37.2-46.3); HGB 9.4 g/dL (12.0-15.0); Lymphocytes # (A) 1.08 10*3/uL (0.90-5.00); Lymphocytes % (A) 4.5 %; MCH 29.1 pg (27.0-32.0); MCHC 30.5 g/dL (32.0-37.0); MCV 95.4 fL (80.0-97.0); Monocytes # (A) 0.42 10*3/uL (0.20-1.00); Monocytes % (A) 1.8 %; Neutrophils # (A) 21.77 10*3/uL (1.80-7.70); Neutrophils % (A) 90.7 %; Platelet Count 410 10*3/uL (140-440); RBC 3.23 10*6/uL (4.10-5.20); RDW 17.2 % (11.5-14.5); WBC 23.98 10*3/uL (4.50-10.00)
[2025-02-23 05:24] LABS: ALT 24 U/L (4-34); AST 69 U/L (14-36); African American GFR (CKD) >90 (>60 ml/min/1.73 sqM); Albumin 3.1 g/dL (3.5-5.0); Alkaline Phosphatase 68 U/L (38-126); Anion Gap 17 mmol/L; Blood Urea Nitrogen 13 mg/dL (7-17); Calcium 7.2 mg/dL (8.4-10.2); Carbon Dioxide 20 mmol/L (22-30); Chloride 102 mmol/L (98-107); Glucose 140 mg/dL (74-99); Magnesium 1.9 mg/dL (1.6-2.3); Non-African American GFR(CKD) 88 (>60 ml/min/1.73 sqM); Potassium 4.1 mmol/L (3.5-5.1); Sodium 139 mmol/L (137-145); Total Protein 5.7 g/dL (6.3-8.2)
--- NOTE | 2025-02-23 05:34 | XR ---
EXAM: XR Chest, 1 View CLINICAL HISTORY: intubation TECHNIQUE: Frontal view of the chest. COMPARISON: 10/19/2021 FINDINGS: Lungs: Large amount of airspace opacities throughout both lungs. Pleural space: Suspect small bilateral pleural effusions. Mediastinum: Unremarkable. Normal mediastinal contour. Bones/joints: No acute findings. Tubes, lines and devices: Tip of endotracheal tube is about 5.3 cm above the polo. Tip of enteric tube reached body of the stomach but not completely included in the field of view. Left pacer is again noted. IMPRESSION: 1. Large amount of airspace opacities throughout both lungs. 2. Suspect small bilateral pleural effusions. 3. Supporting tubes are detailed as above.
[2025-02-23] MEDS ORDERED: Magnesium Replacement Protocol 1 EACH MISC MISCELLANE PRN (05:53)
[2025-02-23 07:23] LABS: INR 1.2 (<1.2); Partial Thromboplastin Time 23.5 sec (22.0-30.0); Prothrombin Time 12.7 sec (10.0-12.5)
[2025-02-23] MEDS ORDERED: PIPERACILLIN-TAZOBACTAM 3.375 GM in SODIUM CHLORIDE 0.9% 100 ML IVPB SCH (09:00)
[2025-02-23] MEDS: MAGNESIUM SULFATE-D5W PMX 1 GM in DEXTROSE/WATER 1 100ML.BAG IVPB ONE (10:12)
[2025-02-23] MEDS: ARTIFICIAL TEARS-HYPROMELLOSE DROPS 15 ML BTL BOTH EYES SCH (10:13)
[2025-02-23] MEDS: CEFEPIME 2 GM in SODIUM CHLORIDE 0.9% 100 ML IVPB SCH (10:15)
[2025-02-23] MEDS: CHLORHEXIDINE GLUCONATE 15 ML CUP MUCOUS MEM SCH (10:15)
[2025-02-23] MEDS: levETIRAcetam IV 500 MG/5 ML VIAL IV SCH (10:41)
--- NOTE | 2025-02-23 11:01 | XR ---
EXAMINATION TYPE: XR chest 1V confirm line plcmt DATE OF EXAM: 02/23/2025 10:50 AM COMPARISON: Chest radiographs from 02/23/2025. CLINICAL INDICATION: Female, 54 years old with history of post central line insertion; [facility] TECHNIQUE: XR chest 1V confirm line plcmt Frontal view of the chest. FINDINGS: Lungs/Pleura: Multifocal airspace opacities. No evidence of pneumothorax or pleural effusion. Pulmonary vascularity: Unremarkable. Heart/mediastinum: Cardiomediastinal silhouette is unremarkable. Atherosclerotic calcifications are seen in the aorta. Single-lead cardiac conduction device overlying the left hemithorax with lead proj ecting over the right ventricle. Musculoskeletal: No acute osseous pathology. Other findings: None Lines/Tubes: Endotracheal tube with distal tip 5.7 cm above the polo. Nasogastric tube with its distal tip and side-port projecting under the diaphragm. Left internal jugular central venous catheter with distal tip at the cavoatrial junction. IMPRESSION: 1. Similar multifocal airspace opacities. 2. Stable support lines and tubes. [facility], , 02/23/2025 10:58 AM
[2025-02-23] MEDS: VANCOMYCIN TROUGH DUE 1 EACH MISC MISCELLANE ONE (11:04)
[2025-02-23 11:08] LABS: Glucose,Whole Blood 108 mg/dL (70-110)
[2025-02-23 11:37] LABS: African American GFR (CKD) >90 (>60 ml/min/1.73 sqM); Anion Gap 7 mmol/L; Blood Urea Nitrogen 14 mg/dL (7-17); Calcium 7.4 mg/dL (8.4-10.2); Carbon Dioxide 29 mmol/L (22-30); Chloride 104 mmol/L (98-107); Glucose 99 mg/dL (74-99); Non-African American GFR(CKD) >90 (>60 ml/min/1.73 sqM); Potassium 3.4 mmol/L (3.5-5.1); Sodium 140 mmol/L (137-145)
[2025-02-23 11:53] LABS: Glucose,Whole Blood 138 mg/dL (70-110)
[2025-02-23] MEDS: NOREPINEPHRINE 8 MG in SODIUM CHLORIDE 0.9% 250 ML IV SCH (13:29)
--- NOTE | 2025-02-23 14:27 | P.CNPUL ---
History of Present Illness Consult date: 02/23/25 Reason for consult: dyspnea History of present illness: 54-year-old female patient got transferred to the intensive care unit because of acute respiratory distress, hypoxemia and diminished level of consciousness. The patient was originally hospitalized on 02/20/2025 for generalized weakness and a fall. She has multiple medical problems and comorbidities. I was involved in her care back in 2021 and at that time the patient had a COVID-19 r elated pneumonia with prolonged respiratory failure requiring a tracheostomy tube insertion and subsequent removal to facilitate her weaning off the mechanical ventilator. She is also known to have coronary artery disease and cardiac catheterization back in 2008 showed minimal CAD, cardiomyopathy and the most recent echocardiogram from August 2023 showed an ejection fraction of 35 to 40% and global LV hypokinesis. The patient also has paroxysmal atrial fibrillation she has a AICD in place. 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 During this current hospitalization, the patient was seen by cardiology. The patient was also seen by neurology and CT of the brain and the neck revealed no evidence of any dissection of the cervical internal carotid artery or vertebral artery. The patient was asked to continue anticoagulation with Eliquis. The patient was asked to continue Keppra 1.5 g twice a day and Tegretol 200 mg 3 times daily and gabapentin 600 mg p.o. 3 times daily regarding her previous history of seizure disorder. The patient was also seen by wound services as the patient has multiple nonhealing ulceration limited to skin breakdown and bullous pemphigoid. Zinc barrier cream was offered to the patient. The patient was also seen by infectious diseases and the patient was offered broad-spectrum antibiotics with vancomycin Overnight, the patient was hypotensive. The patient was given a bolus of fluid and IV albumin. Subsequently, the patient went into acute respiratory distress and the patient was severely hypoxic. She got transferred to the intensive care unit. Immediately, the patient was intubated and placed on the mechanical ventilator due to lack of oxygenation and altered mentation. Reviewed the chest x-ray postintubation and the patient has diffuse bilateral pulmonary infiltrates consistent with acute pulmonary edema. There is large amount of airspace disease bilaterally and suspect small pleural effusion. At this point in time, the patient is still intubated on a mechanical ventilator. Noted she was started on propofol and she was also given a dose of Nimbex to maintain synchrony with the mechanical ventilator and improve oxygenation. She is currently on assist-control mode at rate of 60, tidal volume of 400, FiO2 100% w ith a PEEP of 16. The most recent blood gases showed a pH of 7.23 with a PCO2 of 63 and PO251. She is currently on propofol running at 30 mcg/kg/min. Cardiac rhythm is sinus. Blood pressure is stable. No pressors. The patient was given Lasix 40 mg IV every 12 hours. Urine output since arrival to the ICU was in order of more than 200 cc an hour. Review of Systems ROS unobtainable: due to endotracheal tube Past Medical History Past Medical History: Coronary Artery Disease (CAD), Heart Failure, CVA/TIA, Eye Disorder, Pneumonia, Pulmonary Embolus (PE), Seizure Disorder, Skin Disorder Additional Past Medical History / Comment(s): Last seizure 2009, CVA 2007 with L sided weakness arm and leg and has L foot drop, TIA 2018, cardiomyopathy, R PE and pneumothorax/pneumonia following leg fracture in 1994, gestational diabetes with all pregnancies (4), bilateral glaucoma with surgery, psoriasis in the past, UTIs. Covid Skin condition. History of Any Multi-Drug Resistant Organisms: None Reported Past Surgical History: Pacemaker Additional Past Surgical History / Comment(s): Bilateral eye surgery for glaucoma Past Anesthesia/Blood Transfusion Reactions: No Reported Reaction Type of Cardiac Device: Permanent Pacemaker Device Placement Date:: 2012 Past Psychological History: Anxiety, Depression Additional Psychological History / Comment(s): Pt resides with her boyfriend. She is disabled. She does not drive, she uses the bus system. Smoking Status: Former smoker, Never smoker Past Alcohol Use History: Occasional Additional Past Alcohol Use History / Comment(s): Pt started smoking in 1992 and has been an occasional smoker over the years. However, when reviewing history with her father he says he is not aware that she spokes Past Drug Use History: None Reported - Past Family History Father Family Medical History: Coronary Artery Disease (CAD), Myocardial Infarction (NM) Additional Family Medical History / Comment(s): Father is 75 yrs old. He had a silent NM. Mother Additional Family Medical History / Comment(s): Mother is at 32 yrs d/t cardiomyopathy Medications and Allergies Home Medications Medication Instructions Recorded Confirmed Type Atorvastatin Calcium [Lipitor] 80 mg PO DAILY 03/08/14 02/20/25 History levETIRAcetam [Keppra] 1,500 mg PO BID 03/22/17 02/20/25 History Amiodarone [Cordarone] 200 mg PO DAILY 02/22/20 02/20/25 History carBAMazepine [TEGretol] 200 mg PO TID 02/22/20 02/20/25 History Apixaban [Eliquis] 5 mg PO BID 07/21/21 02/20/25 History Gabapentin 600 mg PO TID 11/18/24 02/20/25 History QUEtiapine [SEROquel] 25 mg PO BID 11/18/24 02/20/25 History Doxycycline [Vibramycin] 100 mg PO BID #28 capsule 02/11/25 02/20/25 Rx Mupirocin 2% Oint [Bactroban 2% 1 applic TOPICAL TID #30 gm 02/11/25 02/20/25 Rx Oint] Dupilumab [Dupixent Pen] 300 mg SQ Q14D 02/20/25 02/20/25 History Vitamin C (Unknown Strength) 1 dose PO DAILY 02/20/25 02/20/25 History Vitamin D3 (Unknown Strength) 1 dose PO DAILY 02/20/25 02/20/25 History predniSONE See Taper PO DIRECTED 02/20/25 02/20/25 History Allergies Allergy/AdvReac Type Severity Reaction Status Date / Time cephalexin monohydrate Allergy Rash/Hives Verified 02/20/25 13:58 [From Keflex] Penicillins Allergy Anaphylaxis Verified 02/20/25 13:58 Physical Exam Vitals: Vital Signs Temp Pulse Pulse Pulse Pulse Pulse Pulse 02/23/25 07:00 106 H 02/23/25 06:00 113 H 02/23/25 05:54 02/23/25 05:40 97.7 F 113 H 02/23/25 04:09 02/23/25 03:49 02/23/25 03:30 120 H 02/23/25 03:25 116 H 02/23/25 03:20 99 02/23/25 00:00 98.5 F 116 H 02/22/25 20:00 100 F H 124 H 02/22/25 15:45 99.5 F 111 H 02/22/25 14:00 129 H 02/22/25 12:00 129 H 02/22/25 09:45 98.5 F 109 H 118 H 110 H 116 H 105 H Resp BP BP Pulse Ox FiO2 02/23/25 07:00 16 116/72 100 02/23/25 06:00 16 125/74 100 02/23/25 05:54 100 02/23/25 05:40 16 125/74 99 100 02/23/25 04:09 100 02/23/25 03:49 100 02/23/25 03:30 24 120/78 63 L 02/23/25 03:25 24 136/78 76 L 02/23/25 03:20 24 93/62 64 L 02/23/25 00:00 16 94/52 90 L 02/22/25 20:00 16 91/55 90 L 02/22/25 15:45 18 97/62 92 L 02/22/25 14:00 16 02/22/25 12:00 16 117/84 90 L 02/22/25 09:45 16 112/72 91 L Intake and Output 02/22/25 02/23/25 02/23/25 22:59 06:59 14:59 Intake Total 240 588.126 Output Total 800 275 Balance 240 -211.874 -275 Intake: Intake, IV Titration 48.126 Amount propofoL 1,000 mg In 48.126 Empty Bag 1 bag @ 15 MCG/ KG/MIN 5.625 mls/hr IV . [id number] [facility] Rx#:[id number] Oral 240 540 Output: Urine 800 275 Other: Voiding Method Toilet Indwelling Catheter # Voids 2 # Bowel Movements 1 ABP, PAP, CO, CI - Last 8 Hours Arterial Blood Pressure 106/51 Arterial Blood Pressure 104/52 Arterial Blood Pressure 108/51 The patient appeared well nourished and normally developed. Vital signs as documented. The patient is intubated on a mechanical ventilator. Orogastric and orotracheal tube in place and the patient has extensive skin lesions, no active bullous disease and the majority of the skin lesions are superficial of various sizes involving the lower extremities, upper extremities and torso. Head exam is unremarkable. No scleral icterus or corneal arcus noted. Neck is without jugular venous distension, thyromegaly, or carotid bruits. Carotid upstrokes are brisk bilaterally. Lungs are clear to auscultation and percussion. Cardiac exam reveals the PMI to be normally sized and situated. Rhythm is regular. First and second heart sounds normal. No murmurs, rubs or gallops. Abdominal exam reveals normal bowel sounds, no masses, no organomegaly and no aortic enlargement. Extremities are nonedematous and both femoral and pedal pulses are normal. Examination of the skin revealed multiple areas of skin ulceration, wounds and skin break. Abnormalities are most of the lower extremities bilaterally. No active vesicle formation. No rashes. Neurologically, the patient is sadated Results - Laboratory Findings CBC and BMP: 02/23/25 04:30 02/23/25 11:05 ABG ABG pH 7.23 (7.35-7.45) L 02/23/25 04:51 ABG pCO2 63 mmHg (35-45) H 02/23/25 04:51 ABG pO2 151 mmHg (83-108) H 02/23/25 04:51 ABG O2 Saturation 98.6 % (94-97) H 02/23/25 04:51 PT/INR, D-dimer PT 12.7 sec (10.0-12.5) H 02/23/25 06:52 INR 1.2 (<1.2) H 02/23/25 06:52 Abnormal lab findings: Abnormal Labs 02/20/25 02/20/25 02/20/25 10:02 10:02 22:29 WBC RBC 3.83 L Hgb 10.5 L Hct 34.9 L MCHC 30.1 L Plt Count 451 H MPV 9.0 L Immature Gran # Neutrophils # Lymphocytes # 0.85 L Eosinophils # PT INR ABG pH ABG pCO2 ABG pO2 ABG HCO3 ABG Total CO2 ABG O2 Saturation Hemoglobin Carbon Dioxide Glucose 171 H POC Glucose (mg/dL) Plasma Lactic Acid Miles Calcium AST Troponin I Total Protein 5.9 L Albumin 2.7 L HDL Cholesterol Procalcitonin Ur Specific [place] 1.050 H Carbamazepine 02/21/25 02/21/25 02/21/25 06:08 06:10 06:10 WBC RBC 3.19 L Hgb 8.7 L D Hct 28.8 L MCHC 30.2 L Plt Count MPV 9.0 L Immature Gran # Neutrophils # Lymphocytes # Eosinophils # PT INR ABG pH ABG pCO2 ABG pO2 ABG HCO3 ABG Total CO2 ABG O2 Saturation Hemoglobin Carbon Dioxide Glucose POC Glucose (mg/dL) Plasma Lactic Acid Miles Calcium 7.3 L AST Troponin I Total Protein 4.7 L Albumin 2.0 L HDL Cholesterol Procalcitonin 0.67 H Ur Specific [place] Carbamazepine 02/21/25 02/22/25 02/22/25 14:49 10:45 10:45 WBC 11.00 H RBC 3.36 L Hgb 9.4 L Hct 31.5 L MCHC 29.8 L Plt Count MPV Immature Gran # 0.06 H Neutrophils # Lymphocytes # Eosinophils # 1.69 H PT INR ABG pH ABG pCO2 ABG pO2 ABG HCO3 ABG Total CO2 ABG O2 Saturation Hemoglobin Carbon Dioxide Glucose POC Glucose (mg/dL) Plasma Lactic Acid Miles Calcium 7.3 L AST Troponin I Total Protein Albumin HDL Cholesterol 36.00 L Procalcitonin Ur Specific [place] Carbamazepine 12.8 H 02/23/25 02/23/25 02/23/25 03:20 03:52 04:30 WBC 23.98 H RBC 3.23 L Hgb 9.4 L Hct 30.8 L MCHC 30.5 L Plt Count MPV Immature Gran # 0.21 H Neutrophils # 21.77 H Lymphocytes # Eosinophils # 0.41 H PT INR ABG pH ABG pCO2 ABG pO2 ABG HCO3 ABG Total CO2 ABG O2 Saturation Hemoglobin Carbon Dioxide Glucose POC Glucose (mg/dL) 191 H 176 H Plasma Lactic Acid Miles Calcium AST Troponin I Total Protein Albumin HDL Cholesterol Procalcitonin Ur Specific [place] Carbamazepine 02/23/25 02/23/25 02/23/25 04:30 04:30 04:30 WBC RBC Hgb Hct MCHC Plt Count MPV Immature Gran # Neutrophils # Lymphocytes # Eosinophils # PT INR ABG pH ABG pCO2 ABG pO2 ABG HCO3 ABG Total CO2 ABG O2 Saturation Hemoglobin Carbon Dioxide 20 L Glucose 140 H POC Glucose (mg/dL) Plasma Lactic Acid Miles 4.8 H* Calcium 7.2 L AST 69 H Troponin I 0.165 H* Total Protein 5.7 L Albumin 3.1 L HDL Cholesterol Procalcitonin Ur Specific [place] Carbamazepine 02/23/25 02/23/25 04:51 06:52 WBC RBC Hgb Hct MCHC Plt Count MPV Immature Gran # Neutrophils # Lymphocytes # Eosinophils # PT 12.7 H INR 1.2 H ABG pH 7.23 L ABG pCO2 63 H ABG pO2 151 H ABG HCO3 27 H ABG Total CO2 29 H ABG O2 Saturation 98.6 H Hemoglobin 9.2 L Carbon Dioxide Glucose POC Glucose (mg/dL) Plasma Lactic Acid Miles Calcium AST Troponin I Total Protein Albumin HDL Cholesterol Procalcitonin Ur Specific [place] Carbamazepine - Diagnostic Findings Chest x-ray: image reviewed Assessment and Plan Plan: acute hypoxic respiratory failure, likely secondary to acute pulmonary edema. The patient has developed dense and diffuse bilateral pulmonary consolidation and the patient was severely hypoxic, failed BiPAP therapy and the patient was intubated on 02/23/2025. Subsequent improved the patient's oxygenation post intubation. Pneumonia is felt to be doubtful although cannot be completely ruled out. Generalized weakness/fall without syncope at the time of admission. The patient was ruled out for any new stroke Bullous pemphigoid disease with multiple skin wounds and eroded and friable bulla throughout the upper and lower extremities and the trunk. No active area of cellulitis at this point was noted. Nevertheless, the skin lesions are diffuse on multiple. CHF/ Cardiomyopathy and LV dysfunction with ejection fraction of 30-35%. Paroxysmal atrial fibrillation, anticoagulated with Eliquis Previous history of COVID-19 pneumonia, 2021, recovered. The patient was intubated back in August 2021 the patient required prolonged mechanical ventilation and tracheostomy tube insertion to facilitate her weaning. Seizure disorder Pulmonary embolism, on long-term treatment with Eliquis. No signs of any bleeding. History of pacemaker implantation. History of saccular ELECTROTYPE CASTER aneurysm 4 mm Hypothyroidism Coronary artery disease History of CVA in 2007 History of psoriasis Bedbugs at the time of admission Plan Will keep the patient sedated with propofol Continue ventilator support. Increase respirate up to 24. Dropped FiO2 down to 60% and later on to 50% and gradual wean down the PEEP Start the patient on broad-spectrum antibiotics and the patient will be kept on a combination of cefepime and vancomycin Obtain sputum Gram stain and culture Obtain blood cultures Diuresis with Lasix 40 mg IV push every 12 hours Repeat echocardiogram Continue amiodarone 200 mg p.o. daily Continue anticoagulation with Eliquis 5 mg p.o. twice a day Wound care and wound service have been consulted and the patient Establish a triple-lumen catheter Continue daily prednisone dose of 10 mg p.o. daily Continue Seroquel Check thyroid function test Continue following up this patient along with the rest of the consultants. This is a critical care evaluation. Time with Patient: Greater than 30
--- NOTE | 2025-02-23 14:28 | P.PCN ---
Date of Procedure: 02/23/25 Preoperative Diagnosis: Acute pulmonary edema with secondary hypoxic respiratory failure Postoperative Diagnosis: Same Procedure(s) Performed: Insertion of a triple-lumen catheter Anesthesia: local Surgeon: Fernando Oviedo Estimated Blood Loss (ml): 0 Pathology: other Condition: critical Disposition: ICU Operative Findings: Indication: Hemodynamic monitoring/Intravenous access. A time-out was completed verifying correct patient, procedure, site, positioning, and implant(s) or special equipment if applicable. The patient was placed in a dependent position appropriate for triple lumen catheter placement based on the vein to be cannulated. The patient's left internal jugular area was prepped and draped in sterile fashion. 1% Lidocaine was used to anesthetize the surrounding skin area. A triple lumen 9F Cordis catheter was introduced into the internal jugular vein using Seldinger technique. The catheter was threaded smoothly over the guide wire and appropriate blood return was obtained. Each lumen of the catheter was evacuated of air and flushed with sterile saline. The catheter was then sutured in place to the skin and a sterile dressing applied. Perfusion to the extremity distal to the point of catheter insertion was checked and found to be adequate.
--- NOTE | 2025-02-23 14:39 | P.PN ---
Subjective Progress Note Date: 02/23/25 Principal diagnosis: Reason for follow-up is multiple skin lesion question of cellulitis and multiple antibiotic allergies Patient is a 54-year-old female with a past medical history significant for PE seizure disorder coronary artery disease has been diagnosed with bullous pemphigoid patient has been brought into the hospital concerning for weakness patient did have multiple skin lesions concerning for cellulitis prompting this consultation. On today's evaluation that is 02/24/2024, patient did have a temperature of 97.6 F this morning she did have a low-grade fever 100 Fahrenheit last evening, patient also had episode of decreased level of responsiveness for the patient to continue patient has been transferred to ICU patient is currently debated on the vent FiO2 at 60%, hemodynamically stable. Daughter at the bedside mention overall improvement in her skin lesion Patient white count is up to 23.98, creatinine 0.58 lactic acid 4.8 vancomycin trough is 13.6 chest x-ray multifocal airspace opacities Objective - Vital Signs Vital signs: Vital Signs Temp 97.6 F 02/23/25 08:00 Pulse 77 02/23/25 14:00 Resp 24 02/23/25 14:00 BP 84/51 02/23/25 14:00 Pulse Ox 99 02/23/25 14:00 FiO2 60 02/23/25 14:00 Intake & Output 02/22/25 02/23/25 02/23/25 18:59 06:59 18:59 Intake Total 1230 588.126 701.534 Output Total 800 1850 Balance 1230 -211.874 -1148.466 Intake: IV 550 0.9 Sodium Chloride 100 Cefepime 2 gm In Sodium 100 Chloride 0.9% 100 ml @ 25 mls/hr IVPB Q8H [facility] Rx#: [id number] Magnesium Sulfate-D5w Pmx 100 1 gm In Dextrose/Water 1 100ml.bag @ 100 mls/hr IVPB ONCE ONE Rx#: [id number] Vancomycin 1,250 mg In 250 Sodium Chloride 0.9% 250 ml @ 125 mls/hr IVPB Q12H [facility] Rx#:[id number] Intake, IV Titration 48.126 31.534 Amount Cisatracurium 200 mg In 29.438 Sodium Chloride 0.9% 180 ml @ 1 MCG/KG/MIN 3.75 mls/hr IV .Q24H [facility] Rx#: [id number] Norepinephrine 8 mg In 2.096 Sodium Chloride 0.9% 250 ml @ 0.03 MCG/KG/MIN 3. 628 mls/hr IV .Q24H [facility] Rx#:[id number] propofoL 1,000 mg In 48.126 Empty Bag 1 bag @ 15 MCG/ KG/MIN 5.625 mls/hr IV . [id number] [facility] Rx#:[id number] Oral 1230 540 Other 120 Output: Urine 800 1850 Other: Voiding Method Toilet Indwelling Catheter Indwelling Catheter # Voids 2 # Bowel Movements 1 ABP, PAP, CO, CI - Last Documented Arterial Blood Pressure 87/43 - Exam GENERAL DESCRIPTION: Middle-age female intubated on the vent RESPIRATORY SYSTEM: Unlabored breathing , decreased breath sounds at bases HEART: S1 S2 regular rate and rhythm , ABDOMEN: Soft , no tenderness SKIN: Multiple ulcerated lesions but no significant slough tissue - Labs CBC & Chem 7: 02/23/25 04:30 02/23/25 11:05 Labs: Abnormal Lab Results - Last 24 Hours (Table) 02/22/25 02/23/25 02/23/25 Range/Units 10:45 03:20 03:52 WBC (4.50-10.00) 10*3/uL RBC (4.10-5.20) 10*6/uL Hgb (12.0-15.0) g/dL Hct (37.2-46.3) % MCHC (32.0-37.0) g/dL Immature Gran # (0.00-0.04) 10*3/uL Neutrophils # (1.80-7.70) 10*3/uL Eosinophils # (0.04-0.35) 10*3/uL PT (10.0-12.5) sec INR (<1.2) ABG pH (7.35-7.45) ABG pCO2 (35-45) mmHg ABG pO2 (83-108) mmHg ABG HCO3 (21-25) mmol/L ABG Total CO2 (19-24) mmol/L ABG O2 Saturation (94-97) % Hemoglobin (11.4-16.0) gm/dL Potassium (3.5-5.1) mmol/L Carbon Dioxide (22-30) mmol/L Glucose (74-99) mg/dL POC Glucose (mg/dL) 191 H 176 H (70-110) mg/dL Plasma Lactic Acid Miles (0.7-2.0) mmol/L Calcium (8.4-10.2) mg/dL AST (14-36) U/L Troponin I (0.000-0.034) ng/mL Total Protein (6.3-8.2) g/dL Albumin (3.5-5.0) g/dL HDL Cholesterol 36.00 L (40.00-60.00) mg/dL 02/23/25 02/23/25 02/23/25 Range/Units 04:30 04:30 04:30 WBC 23.98 H (4.50-10.00) 10*3/uL RBC 3.23 L (4.10-5.20) 10*6/uL Hgb 9.4 L (12.0-15.0) g/dL Hct 30.8 L (37.2-46.3) % MCHC 30.5 L (32.0-37.0) g/dL Immature Gran # 0.21 H (0.00-0.04) 10*3/uL Neutrophils # 21.77 H (1.80-7.70) 10*3/uL Eosinophils # 0.41 H (0.04-0.35) 10*3/uL PT (10.0-12.5) sec INR (<1.2) ABG pH (7.35-7.45) ABG pCO2 (35-45) mmHg ABG pO2 (83-108) mmHg ABG HCO3 (21-25) mmol/L ABG Total CO2 (19-24) mmol/L ABG O2 Saturation (94-97) % Hemoglobin (11.4-16.0) gm/dL Potassium (3.5-5.1) mmol/L Carbon Dioxide 20 L (22-30) mmol/L Glucose 140 H (74-99) mg/dL POC Glucose (mg/dL) (70-110) mg/dL Plasma Lactic Acid Miles 4.8 H* (0.7-2.0) mmol/L Calcium 7.2 L (8.4-10.2) mg/dL AST 69 H (14-36) U/L Troponin I (0.000-0.034) ng/mL Total Protein 5.7 L (6.3-8.2) g/dL Albumin 3.1 L (3.5-5.0) g/dL HDL Cholesterol (40.00-60.00) mg/dL 02/23/25 02/23/25 02/23/25 Range/Units 04:30 04:51 06:52 WBC (4.50-10.00) 10*3/uL RBC (4.10-5.20) 10*6/uL Hgb (12.0-15.0) g/dL Hct (37.2-46.3) % MCHC (32.0-37.0) g/dL Immature Gran # (0.00-0.04) 10*3/uL Neutrophils # (1.80-7.70) 10*3/uL Eosinophils # (0.04-0.35) 10*3/uL PT 12.7 H (10.0-12.5) sec INR 1.2 H (<1.2) ABG pH 7.23 L (7.35-7.45) ABG pCO2 63 H (35-45) mmHg ABG pO2 151 H (83-108) mmHg ABG HCO3 27 H (21-25) mmol/L ABG Total CO2 29 H (19-24) mmol/L ABG O2 Saturation 98.6 H (94-97) % Hemoglobin 9.2 L (11.4-16.0) gm/dL Potassium (3.5-5.1) mmol/L Carbon Dioxide (22-30) mmol/L Glucose (74-99) mg/dL POC Glucose (mg/dL) (70-110) mg/dL Plasma Lactic Acid Mlies (0.7-2.0) mmol/L Calcium (8.4-10.2) mg/dL AST (14-36) U/L Troponin I 0.165 H* (0.000-0.034) ng/mL Total Protein (6.3-8.2) g/dL Albumin (3.5-5.0) g/dL HDL Cholesterol (40.00-60.00) mg/dL 02/23/25 02/23/25 Range/Units 11:05 11:52 WBC (4.50-10.00) 10*3/uL RBC (4.10-5.20) 10*6/uL Hgb (12.0-15.0) g/dL Hct (37.2-46.3) % MCHC (32.0-37.0) g/dL Immature Gran # (0.00-0.04) 10*3/uL Neutrophils # (1.80-7.70) 10*3/uL Eosinophils # (0.04-0.35) 10*3/uL PT (10.0-12.5) sec INR (<1.2) ABG pH (7.35-7.45) ABG pCO2 (35-45) mmHg ABG pO2 (83-108) mmHg ABG HCO3 (21-25) mmol/L ABG Total CO2 (19-24) mmol/L ABG O2 Saturation (94-97) % Hemoglobin (11.4-16.0) gm/dL Potassium 3.4 L (3.5-5.1) mmol/L Carbon Dioxide (22-30) mmol/L Glucose (74-99) mg/dL POC Glucose (mg/dL) 138 H (70-110) mg/dL Plasma Lactic Acid Miles (0.7-2.0) mmol/L Calcium 7.4 L (8.4-10.2) mg/dL AST (14-36) U/L Troponin I (0.000-0.034) ng/mL Total Protein (6.3-8.2) g/dL Albumin (3.5-5.0) g/dL HDL Cholesterol (40.00-60.00) mg/dL Microbiology - Last 24 Hours (Table) 02/21/25 01:04 Urine Culture - Preliminary Urine,Catheterized Gram Neg Bacilli Assessment and Plan (1) Skin ulcer of multiple sites Current Visit: Yes Status: Acute Code(s): L98.499 - NON-PRESSURE CHRONIC ULCER OF SKIN OF SITES W UNSP SEVERITY SNOMED Code(s): 51961873 (2) Bullous pemphigoid Current Visit: Yes Status: Acute Code(s): L12.0 - BULLOUS PEMPHIGOID SNOMED Code(s): 95467901 (3) Allergy to multiple antibiotics Current Visit: No Status: Acute Code(s): Z88.1 - ALLERGY STATUS TO OTHER ANTIBIOTIC AGENTS SNOMED Code(s): 543200078 Plan: 1 Patient presented to hospital with fall due to generalized weakness which could be related to possible prerenal as the patient and daughter mention air conditioning for the last few days which has been really hot and the patient will drinking enough fluid patient did have multiple skin lesions but there is no slough tissue no surrounding redness patient not running any fever no elevated white count clinically doubt any active cellulitis 2-multiple antibiotic allergies that would limit the number of antibiotics safe to use 3-patient did have a worsening of her clinical condition become less responsive hypertension requiring intubation intubation by ICU chest x-ray with concern for multifocal opacity questionably fluid infectious etiology not entirely excluded as the patient also noticed to have worsening of the white count as well as elevated lactic acid 4we will obtain blood cultures sputum culture continue vancomycin will add Azactam to cover for the gram-negative Dictation was produced using [employer] dictation software. please excuse any grammatical, word or spelling errors. Time with Patient: Greater than 30
[2025-02-23] MEDS ORDERED: Potassium Replacement Protocol 1 EACH MISC MISCELLANE PRN (16:15)
[2025-02-23] MEDS: AZTREONAM 2 GM in SODIUM CHLORIDE 0.9% 100 ML IVPB SCH (16:22)
--- NOTE | 2025-02-23 16:32 | P.PN ---
Subjective Progress Note Date: 02/23/25 Patient was seen for follow-up. She is now in the ICU. Patient apparently had episode of unresponsive in the morning. Patient was unresponsive to sternal rub with agonal breathing. Heart rate was 120, blood pressure 120/78, saturation 57%. Patient was intubated at 3:32 AM and transferred to ICU. Patient's chest x-ray showed multifocal airspace opacities. Pulmonary and critical care susp ecting acute hypoxic respiratory failure, likely secondary to acute pulmonary edema. Patient has developed dense and diffuse bilateral pulmonary consolidation and the patient was severely hypoxic, failed BiPAP therapy and patient was intubated. Pneumonia is felt doubtful. Patient does have CHF with cardiomyopathy with LV dysfunction with EF of 30 to 35%. Patient has paroxysmal atrial fibrillation, anticoagulated with Eliquis. Objective - Vital Signs Vital signs: Vital Signs Temp 97.6 F 02/23/25 08:00 Pulse 95 02/23/25 16:00 Resp 24 02/23/25 16:00 BP 103/71 02/23/25 16:00 Pulse Ox 97 02/23/25 16:00 FiO2 60 02/23/25 16:00 Intake & Output 02/22/25 02/23/25 02/23/25 18:59 06:59 18:59 Intake Total 1230 588.126 754.434 Output Total 800 2305 Balance 1230 -211.874 -1550.566 Intake: IV 590 0.9 Sodium Chloride 140 Cefepime 2 gm In Sodium 100 Chloride 0.9% 100 ml @ 25 mls/hr IVPB Q8H [facility] Rx#: [id number] Magnesium Sulfate-D5w Pmx 100 1 gm In Dextrose/Water 1 100ml.bag @ 100 mls/hr IVPB ONCE ONE Rx#: [id number] Vancomycin 1,250 mg In 250 Sodium Chloride 0.9% 250 ml @ 125 mls/hr IVPB Q12H [facility] Rx#:[id number] Intake, IV Titration 48.126 44.434 Amount Cisatracurium 200 mg In 29.438 Sodium Chloride 0.9% 180 ml @ 1 MCG/KG/MIN 3.75 mls/hr IV .Q24H [facility] Rx#: [id number] Norepinephrine 8 mg In 14.996 Sodium Chloride 0.9% 250 ml @ 0.03 MCG/KG/MIN 3. 628 mls/hr IV .Q24H [facility] Rx#:[id number] propofoL 1,000 mg In 48.126 Empty Bag 1 bag @ 15 MCG/ KG/MIN 5.625 mls/hr IV . [id number] [facility] Rx#:[id number] Oral 1230 540 Other 120 Output: Urine 800 2305 Other: Voiding Method Toilet Indwelling Catheter Indwelling Catheter # Voids 2 # Bowel Movements 1 ABP, PAP, CO, CI - Last Documented Arterial Blood Pressure 151/67 - Exam Patient at present is on propofol 30 mcg/kg/min and Nimbex 2 mcg/kg/min. Patient is intubated, sedated. Detailed examination deferred, because of being on sedation and Nimbex. Rash is getting better. - Labs CBC & Chem 7: 02/23/25 04:30 02/23/25 15:00 Labs: Abnormal Lab Results - Last 24 Hours (Table) 02/23/25 02/23/25 02/23/25 Range/Units 03:20 03:52 04:30 WBC 23.98 H (4.50-10.00) 10*3/uL RBC 3.23 L (4.10-5.20) 10*6/uL Hgb 9.4 L (12.0-15.0) g/dL Hct 30.8 L (37.2-46.3) % MCHC 30.5 L (32.0-37.0) g/dL Immature Gran # 0.21 H (0.00-0.04) 10*3/uL Neutrophils # 21.77 H (1.80-7.70) 10*3/uL Eosinophils # 0.41 H (0.04-0.35) 10*3/uL PT (10.0-12.5) sec INR (<1.2) ABG pH (7.35-7.45) ABG pCO2 (35-45) mmHg ABG pO2 (83-108) mmHg ABG HCO3 (21-25) mmol/L ABG Total CO2 (19-24) mmol/L ABG O2 Saturation (94-97) % Hemoglobin (11.4-16.0) gm/dL Potassium (3.5-5.1) mmol/L Carbon Dioxide (22-30) mmol/L Glucose (74-99) mg/dL POC Glucose (mg/dL) 191 H 176 H (70-110) mg/dL Plasma Lactic Acid Miles (0.7-2.0) mmol/L Calcium (8.4-10.2) mg/dL AST (14-36) U/L Troponin I (0.000-0.034) ng/mL Total Protein (6.3-8.2) g/dL Albumin (3.5-5.0) g/dL 02/23/25 02/23/25 02/23/25 Range/Units 04:30 04:30 04:30 WBC (4.50-10.00) 10*3/uL RBC (4.10-5.20) 10*6/uL Hgb (12.0-15.0) g/dL Hct (37.2-46.3) % MCHC (32.0-37.0) g/dL Immature Gran # (0.00-0.04) 10*3/uL Neutrophils # (1.80-7.70) 10*3/uL Eosinophils # (0.04-0.35) 10*3/uL PT (10.0-12.5) sec INR (<1.2) ABG pH (7.35-7.45) ABG pCO2 (35-45) mmHg ABG pO2 (83-108) mmHg ABG HCO3 (21-25) mmol/L ABG Total CO2 (19-24) mmol/L ABG O2 Saturation (94-97) % Hemoglobin (11.4-16.0) gm/dL Potassium (3.5-5.1) mmol/L Carbon Dioxide 20 L (22-30) mmol/L Glucose 140 H (74-99) mg/dL POC Glucose (mg/dL) (70-110) mg/dL Plasma Lactic Acid Miles 4.8 H* (0.7-2.0) mmol/L Calcium 7.2 L (8.4-10.2) mg/dL AST 69 H (14-36) U/L Troponin I 0.165 H* (0.000-0.034) ng/mL Total Protein 5.7 L (6.3-8.2) g/dL Albumin 3.1 L (3.5-5.0) g/dL 02/23/25 02/23/2502/23/25 Range/Units 04:51 06:52 11:05 WBC (4.50-10.00) 10*3/uL RBC (4.10-5.20) 10*6/uL Hgb (12.0-15.0) g/dL Hct (37.2-46.3) % MCHC (32.0-37.0) g/dL Immature Gran # (0.00-0.04) 10*3/uL Neutrophils # (1.80-7.70) 10*3/uL Eosinophils # (0.04-0.35) 10*3/uL PT 12.7 H (10.0-12.5) sec INR 1.2 H (<1.2) ABG pH 7.23 L (7.35-7.45) ABG pCO2 63 H (35-45) mmHg ABG pO2 151 H (83-108) mmHg ABG HCO3 27 H (21-25) mmol/L ABG Total CO2 29 H (19-24) mmol/L ABG O2 Saturation 98.6 H (94-97) % Hemoglobin 9.2 L (11.4-16.0) gm/dL Potassium 3.4 L (3.5-5.1) mmol/L Carbon Dioxide (22-30) mmol/L Glucose (74-99) mg/dL POC Glucose (mg/dL) (70-110) mg/dL Plasma Lactic Acid Miles (0.7-2.0) mmol/L Calcium 7.4 L (8.4-10.2) mg/dL AST (14-36) U/L Troponin I (0.000-0.034) ng/mL Total Protein (6.3-8.2) g/dL Albumin (3.5-5.0) g/dL 02/23/25 02/23/25 Range/Units 11:52 15:00 WBC (4.50-10.00) 10*3/uL RBC (4.10-5.20) 10*6/uL Hgb (12.0-15.0) g/dL Hct (37.2-46.3) % MCHC (32.0-37.0) g/dL Immature Gran # (0.00-0.04) 10*3/uL Neutrophils # (1.80-7.70) 10*3/uL Eosinophils # (0.04-0.35) 10*3/uL PT (10.0-12.5) sec INR (<1.2) ABG pH (7.35-7.45) ABG pCO2 (35-45) mmHg ABG pO2 (83-108) mmHg ABG HCO3 (21-25) mmol/L ABG Total CO2 (19-24) mmol/L ABG O2 Saturation (94-97) % Hemoglobin (11.4-16.0) gm/dL Potassium 3.1 L (3.5-5.1) mmol/L Carbon Dioxide (22-30) mmol/L Glucose (74-99) mg/dL POC Glucose (mg/dL) 138 H (70-110) mg/dL Plasma Lactic Acid Miles (0.7-2.0) mmol/L Calcium (8.4-10.2) mg/dL AST (14-36) U/L Troponin I (0.000-0.034) ng/mL Total Protein (6.3-8.2) g/dL Albumin (3.5-5.0) g/dL Microbiology - Last 24 Hours (Table) 02/21/25 01:04 Urine Culture - Final Urine,Catheterized Escherichia coli Assessment and Plan Assessment: * Acute respiratory failure due to acute pulmonary edema. * Status post accidental fall due to losing balance. Patient denies any presyncopal symptoms, loss of consciousness. She is positive it was not a seizure, just accidental fall due to losing balance. * History of CVA with residual spastic left hemiparesis. * Bullous pemphigoid mainly over lower extremities. Follows up with dermatology. * Seizure disorder for long time, seizures in remission since 2009--no further seizures. * History of Atrial Fibrillation, on Eliquis. 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 * History of pacemaker. * CHF Plan: * Patient is intubated, sedated and also on Nimbex. * CT head rule out any intracranial process. * CTA of head and neck revealed no evidence of dissection of the cervical internal carotid arteries or vertebral arteries or any evidence of significant stenosis at the carotid bifurcations. Moderate stenosis involving the cavernous portion of the internal carotid arteries bilaterally secondary to calcified plaque. No evidence of intracranial aneurysm. * Continue Eliquis 5 mg twice daily for stroke prevention from A-fib. * Hemoglobin A1c 5.6, fasting lipid panel with cholesterol 102, LDL 48, HDL 36 and triglycerides 86. Lipids are well-controlled. * Continue seizure medications including Keppra 1500 mg twice daily, Tegretol 200 mg 3 times daily and gabapentin 600 mg 3 times daily. * Tegretol 12.8 (4-12) and Keppra 50.6 (3-60). Patient states that she has been on these medications since 2008 tolerating it well. She does not believe rash is from these medications. Patient wishes to continue same dose of her seizure medications. * For bullous pemphigoid, patient to follow-up with her clinical staff anesthesiologist. Patient states clinical staff anesthesiologist mentioned that rash was from metoprolol, which they have discontinued. * Neurology will follow.
[2025-02-23] MEDS: POTASSIUM BICARBONATE/CIT AC 20 MEQ TABLET.EFF NG-TUBE SCH (16:49)
[2025-02-23 17:37] LABS: Glucose,Whole Blood 111 mg/dL (70-110)
--- NOTE | 2025-02-23 17:47 | CT ---
EXAMINATION TYPE: CT brain wo con DATE OF EXAM: 02/23/2025 5:19 PM COMPARISON: 02/20/2025. CLINICAL INDICATION: Female, 54 years old with history of r/o stroke, stroke neurological deficit. TECHNIQUE: Brain: Axial CT images of the brain were obtained with coronal and sagittal reformats created and rev iewed. Contrast used: None. Oral contrast used: None. CT DLP: 1156.4 mGycm, Automated exposure control for dose reduction was used. FINDINGS: Brain: Extra-axial spaces: No abnormal extra-axial fluid collections. Ventricular system: Ex vacuo dilatation of the right lateral ventricle. Cerebral parenchyma: No acute intraparenchymal hemorrhage or mass effect. Remote large right MCA ter ritory infarct redemonstrated. There is involvement of the right insula. Remote appearing near CSF at tenuation left frontal lobe encephalomalacia from prior injury. Scattered hypoattenuating areas are s een within the periventricular white matter. Cerebellum: Small remote bilateral cerebellar injuries with encephalomalacia. Mass effect: No evidence of midline shift. Intracranial vasculature: Atherosclerotic calcifications of the intracranial vessels. Soft tissues: Normal. Calvarium/osseous structures: No depressed skull fracture. Paranasal sinuses and mastoid air cells: The bilateral mastoid air cells are clear. Mild mucosal thic kening of the left maxillary sinus with debris. The remaining paranasal sinuses are clear. Aplasia of the bilateral frontal sinuses. Visualized orbits: Orbital contents are intact. IMPRESSION: 1. No acute intracranial process. 2. Stable remote right large MCA territory infarct with encephalomalacia again. Remote left frontal l obe infarct with encephalomalacia. Additional small regions of encephalomalacia from prior injury inv olving the bilateral cerebellum. 3. Nonspecific white matter changes, likely secondary to chronic small vessel ischemic disease. [facility], , 02/23/2025 5:45 PM
[2025-02-24] MEDS: POTASSIUM BICARBONATE/CIT AC 20 MEQ TABLET.EFF NG-TUBE SCH ×2 (00:07→06:19)
[2025-02-24 04:55] LABS: Basophils # (A) 0.04 10*3/uL (0.00-0.10); Basophils % (A) 0.4 %; Eosinophils # (A) 0.53 10*3/uL (0.04-0.35); Eosinophils % (A) 4.7 %; HCT 26.7 % (37.2-46.3); HGB 8.3 g/dL (12.0-15.0); Lymphocytes # (A) 1.03 10*3/uL (0.90-5.00); Lymphocytes % (A) 9.1 %; MCH 27.7 pg (27.0-32.0); MCHC 31.1 g/dL (32.0-37.0); Monocytes # (A) 0.40 10*3/uL (0.20-1.00); Monocytes % (A) 3.5 %; Neutrophils # (A) 9.30 10*3/uL (1.80-7.70); Neutrophils % (A) 81.9 %; Platelet Count 311 10*3/uL (140-440); RBC 3.00 10*6/uL (4.10-5.20); RDW 17.0 % (11.5-14.5); WBC 11.35 10*3/uL (4.50-10.00)
[2025-02-24 04:58] LABS: MCV 89.0 fL (80.0-97.0)
[2025-02-24 05:07] LABS: African American GFR (CKD) >90 (>60 ml/min/1.73 sqM); Anion Gap 7 mmol/L; Blood Urea Nitrogen 17 mg/dL (7-17); Calcium 7.9 mg/dL (8.4-10.2); Carbon Dioxide 31 mmol/L (22-30); Chloride 102 mmol/L (98-107); Glucose 79 mg/dL (74-99); Magnesium 1.8 mg/dL (1.6-2.3); Non-African American GFR(CKD) >90 (>60 ml/min/1.73 sqM); Potassium 3.7 mmol/L (3.5-5.1); Sodium 140 mmol/L (137-145)
[2025-02-24 05:26] LABS: ABG HCO3 33 mmol/L (21-25); ABG PCO2 38 mmHg (35-45); ABG PH 7.54 (7.35-7.45); ABG PO2 188 mmHg (83-108); ABG TCO2 34 mmol/L (19-24); Allen Test Performed? Yes
[2025-02-24 06:06] LABS: Glucose,Whole Blood 86 mg/dL (70-110)
[2025-02-24] MEDS: MAGNESIUM SULFATE-D5W PMX 1 GM in DEXTROSE/WATER 1 100ML.BAG IVPB ONE (06:19)
--- NOTE | 2025-02-24 07:01 | XR ---
EXAMINATION TYPE: XR chest 1V portable DATE OF EXAM: 02/24/2025 5:14 AM COMPARISON: Chest radiographs from 02/23/2025. CLINICAL INDICATION: Female, 54 years old with history of Tube placement; [facility] TECHNIQUE: XR chest 1V portable Frontal view of the chest. FINDINGS: Lungs/Pleura: Improved aeration of lungs on today's exam with persistent airspace opacities scattered throughout the lungs. No evidence of pneumothorax or large pleural effusion. Pulmonary vascularity: Unremarkable. Heart/mediastinum: Cardiomediastinal silhouette is unremarkable. Atherosclerotic calcifications are seen in the aorta. Single-lead cardiac conduction device overlying the left hemithorax with lead proj ecting over the right ventricle. Musculoskeletal: No acute osseous pathology. Other findings: None Lines/Tubes: Endotracheal tube with distal tip 5.5 cm above the polo. Nasogastric tube with its distal tip and side-port projecting under the diaphragm. Left internal jugular central venous catheter with distal tip at the cavoatrial junction. IMPRESSION: 1. Mild slight improvement in aeration with persistent multifocal airspace opacities. 2. Stable support lines and tubes. [facility], , 02/24/2025 6:59 AM
[2025-02-24] MEDS: DEXMEDETOMIDINE/0.9% NACL(PMX) 400 MCG in EMPTY BAG 1 BAG IV SCH (08:45)
--- NOTE | 2025-02-24 10:21 | P.PN ---
Subjective Progress Note Date: 02/24/25 This is Albin Stapleton NP, I'm dictating on behalf of Dr. Torre's H&P and A&P. Patient was interviewed and examined. Patient is a 54-year-old female with a past medical history significant for CHF, cardiomyopathy, paroxysmal A-fib, anxiety implantation who presented to the hospital for generalized weakness, and was found to have bilateral lower extremity edema. She had sustained a fall at home. She denied passing out. She has been seeing a bottom turner for bullous pemphigoid. He had stopped her Lasix and metoprolol stating that these were likely contributors. She had been trying to get a hold of her cardiology office about a new diuretic but had not received a call back. Unfortunately all diuretics can possibly cause bullous pemphigoid. We previously saw the patient due to the lower extremity swelling. We found no reason to complete repeat echocardiogram, we recommended n onpharmacological interventions for the lower extremity edema such as compression stockings and elevating her lower extremities. Repeat echo was done yesterday finding a decrease in her EF, cardiomyopathy, troponin was drawn finding elevation. We were reconsulted secondary to these. Patient is cu rrently sedated and intubated secondary to pulmonary edema. Patient has been restarted on Lasix IV, recommend significantly close monitoring secondary to her history of bullous pemphigoid while on Lasix. Patient was given a dose of albumin secondary to a low albumin, which could be the mechanism causing the pulmonary edema. GENERAL: Well-appearing, well-nourished and in no acute distress. NECK: Supple without JVD or thyromegaly. LUNGS: Breath sounds clear to auscultation bilaterally. Respiration equal and unlabored. No wheezes, rales or rhonchi. HEART: Regular rate and rhythm without murmurs, rubs or gallops. S1 and S2 heard. EXTREMITIES: Normal range of motion, no edema. No clubbing or cyanosis. Peripheral pulses intact and strong. VITALS: Temp 99.1, pulse 115, respirations 24, blood pressure 111/80, O2 saturation 100% on mechanical ventilation TELEMETRY: Sinus mechanism LABS: White count 11.3, hemoglobin 8.3, platelets 311, sodium 140, potassium 3.7, chloride 102, BUN 17, creatinine 0.54, magnesium 1.8 troponin 0.165, 0.358, procalcitonin 0.33 IMPRESSION: 1. Pulmonary edema 2. Status post mechanical fall 3. Bullous pemphigoid 4. Paroxysmal atrial fibrillation 5. Nonischemic cardiomyopathy 6. Chronic congestive heart failure with reduced EF 7. History of AICD implantation PLAN: Continue current treatment. Monitor IV Lasix closely, as patient has history of bullous pemphigoid secondary to diuretics. If she begins to develop lesions, recommend discontinuation. Avoid IV albumin regardless of patient's albumin level. This will cause significant redistribution of fluid into the vascular system, further exacerbating heart failure as well as pulmonary edema. Further recommendations based on patient's clinical course. Objective - Vital Signs Vital signs: Vital Signs Temp 99.1 F 02/24/25 08:00 Pulse 115 H 02/24/25 08:30 Resp 24 02/24/25 08:30 BP 111/80 02/24/25 08:30 Pulse Ox 100 02/24/25 08:30 FiO2 50 02/24/25 09:38 Intake & Output 02/23/25 02/24/25 02/24/25 18:59 06:59 18:59 Intake Total 195.508 0943.285 295.860 Output Total 2485 2600 105 Balance -1638.692 -1450.715 190.860 Weight 60.6 kg Intake: IV 630 923 146 0.9 Sodium Chloride 180 240 40 Arterial Line 33 6 Aztreonam 2 gm In Sodium 100 100 Chloride 0.9% 100 ml @ 33 .3 mls/hr IVPB Q8HR [facility] Rx#:[id number] Cefepime 2 gm In Sodium 100 200 Chloride 0.9% 100 ml @ 25 mls/hr IVPB Q8H [facility] Rx#: [id number] Magnesium Sulfate-D5w Pmx 100 100 1 gm In Dextrose/Water 1 100ml.bag @ 100 mls/hr IVPB ONCE ONE Rx#: [id number] Vancomycin 1,250 mg In 250 250 Sodium Chloride 0.9% 250 ml @ 125 mls/hr IVPB Q12H [facility] Rx#:[id number] Intake, IV Titration 96.308 226.285 89.860 Amount Cisatracurium 200 mg In 29.438 125.375 15.125 Sodium Chloride 0.9% 180 ml @ 1 MCG/KG/MIN 3.75 mls/hr IV .Q24H [facility] Rx#: [id number] Dexmedetomidine/0.9% NaCl 3.788 (Pmx) 400 mcg In Empty Bag 1 bag @ 0.2 MCG/KG/HR 3.03 mls/hr IV .Q24H [facility] Rx#:[id number] Norepinephrine 8 mg In 14.996 30.035 0.665 Sodium Chloride 0.9% 250 ml @ 0.03 MCG/KG/MIN 3. 628 mls/hr IV .Q24H [facility] Rx#:[id number] propofoL 1,000 mg In 51.874 70.875 70.282 Empty Bag 1 bag @ 15 MCG/ KG/MIN 5.625 mls/hr IV . [id number] [facility] Rx#:[id number] Other 120 60 Output: Urine 2485 2600 105 Other: Voiding Method Indwelling Catheter Indwelling Catheter Indwelling Catheter ABP, PAP, CO, CI - Last Documented Arterial Blood Pressure 106/51 - Labs CBC & Chem 7: 02/24/25 04:35 02/24/25 04:35 Labs: Abnormal Lab Results - Last 24 Hours (Table) 02/23/25 02/23/25 02/23/25 Range/Units 11:05 11:52 15:00 WBC (4.50-10.00) 10*3/uL RBC (4.10-5.20) 10*6/uL Hgb (12.0-15.0) g/dL Hct (37.2-46.3) % MCHC (32.0-37.0) g/dL MPV (9.5-12.2) fL Immature Gran # (0.00-0.04) 10*3/uL Neutrophils # (1.80-7.70) 10*3/uL Eosinophils # (0.04-0.35) 10*3/uL ABG pH (7.35-7.45) ABG pO2 (83-108) mmHg ABG HCO3 (21-25) mmol/L ABG Total CO2 (19-24) mmol/L ABG O2 Saturation (94-97) % Potassium 3.4 L 3.1 L (3.5-5.1) mmol/L Carbon Dioxide (22-30) mmol/L POC Glucose (mg/dL) 138 H (70-110) mg/dL Calcium 7.4 L (8.4-10.2) mg/dL Troponin I (0.000-0.034) ng/mL 02/23/25 02/23/25 02/24/25 Range/Units 15:00 17:35 04:35 WBC (4.50-10.00) 10*3/uL RBC (4.10-5.20) 10*6/uL Hgb (12.0-15.0) g/dL Hct (37.2-46.3) % MCHC (32.0-37.0) g/dL MPV (9.5-12.2) fL Immature Gran # (0.00-0.04) 10*3/uL Neutrophils # (1.80-7.70) 10*3/uL Eosinophils # (0.04-0.35) 10*3/uL ABG pH (7.35-7.45) ABG pO2 (83-108) mmHg ABG HCO3 (21-25) mmol/L ABG Total CO2 (19-24) mmol/L ABG O2 Saturation (94-97) % Potassium (3.5-5.1) mmol/L Carbon Dioxide 31 H (22-30) mmol/L POC Glucose (mg/dL) 111 H (70-110) mg/dL Calcium 7.9 L (8.4-10.2) mg/dL Troponin I 0.358 H* (0.000-0.034) ng/mL 02/24/25 02/24/25 Range/Units 04:35 05:13 WBC 11.35 H (4.50-10.00) 10*3/uL RBC 3.00 L (4.10-5.20) 10*6/uL Hgb 8.3 L (12.0-15.0) g/dL Hct 26.7 L (37.2-46.3) % MCHC 31.1 L (32.0-37.0) g/dL MPV 9.1 L (9.5-12.2) fL Immature Gran # 0.05 H (0.00-0.04) 10*3/uL Neutrophils # 9.30 H (1.80-7.70) 10*3/uL Eosinophils # 0.53 H (0.04-0.35) 10*3/uL ABG pH 7.54 H (7.35-7.45) ABG pO2 188 H (83-108) mmHg ABG HCO3 33 H (21-25) mmol/L ABG Total CO2 34 H (19-24) mmol/L ABG O2 Saturation 100.0 H (94-97) % Potassium (3.5-5.1) mmol/L Carbon Dioxide (22-30) mmol/L POC Glucose (mg/dL) (70-110) mg/dL Calcium (8.4-10.2) mg/dL Troponin I (0.000-0.034) ng/mL Microbiology - Last 24 Hours (Table) 02/23/25 04:00 Gram Stain - Preliminary Sputum 02/21/25 01:04 Urine Culture - Final Urine,Catheterized Escherichia coli
--- NOTE | 2025-02-24 10:28 | CA ---
Transthoracic Echo Report Name: Hannah Campos Age: 54 Gender: F : 1970 Exam Date: 02/23/2025 13:56 Exam Location: [place] [facility] Ht (in): 62 Wt (lb): 137 Ordering Physician: Fernando Oviedo MD Attending/Referring Phys: It Help Desk Analyst Brenda Zayas RDCS Procedure CPT: Indications: cardiomyopathy Cardiac Hx: Technical Quality: Fair Contrast 1: Definity Total Dose (mL): 2 Contrast 2: Total Dose (mL): MEASUREMENTS (Male / Female) Normal Values 2D ECHO LV Diastolic Diameter PLAX 5.3 cm 4.2 - 5.9 / 3.9 - 5.3 cm LV Systolic Diameter PLAX 4.5 cm IVS Diastolic Thickness 1.1 cm 0.6 - 1.0 / 0.6 - 0.9 cm LVPW Diastolic Thickness 1.0 cm 0.6 - 1.0 / 0.6 - 0.9 cm LV Relative Wall Thickness 0.4 RV Internal Dim ED PLAX 3.1 cm LVOT Diameter 1.9 cm LV Diastolic Volume MOD BP 189.5 cm??? 67 - 155 / 56 - 104 cm??? LV Systolic Volume MOD BP 106.3 cm??? 22 - 58 / 19 - 49 cm??? LV Ejection Fraction MOD BP 43.9 % >= 55 % LV Cardiac Index MOD BP 4107.7 cm???/min???m??? LV Diastolic Volume MOD 4C 207.9 cm??? LV Systolic Volume MOD 4C 122.9 cm??? LV Ejection Fraction MOD 4C 40.9 % LV Cardiac Index MOD 4C 4198.4 cm???/min???m??? LV Diastolic Length 4C 9.5 cm LV Systolic Length 4C 7.6 cm LV Diastolic Volume MOD 2C 161.9 cm??? LV Systolic Volume MOD 2C 91.0 cm??? LV Ejection Fraction MOD 2C 43.8 % LV Cardiac Index MOD 2C 3502.9 cm???/min???m??? LV Diastolic Length 2C 8.8 cm LV Systolic Length 2C 7.5 cm LA Volume 85.1 cm??? 18 - 58 / 22 - 52 cm??? LA Volume Index 51.2 cm???/m??? 16 - 28 cm???/m??? DOPPLER LVOT Peak Velocity 59.2 cm/s LVOT Peak Gradient 1.4 mmHg LVOT Velocity Time Integral 7.8 cm LVOT Stroke Volume 22.8 cm??? LVOT Stroke Volume Index 14.0 ml/m??? LVOT Cardiac Index 1126.7 cm???/min???m??? MV Area PHT 5.8 cm??? Mitral E Point Velocity 87.0 cm/s Mitral A Point Velocity 47.2 cm/s Mitral E to A Ratio 1.8 MV Deceleration Time 130.4 ms MV E' Velocity 4.5 cm/s Mitral E to MV E' Ratio 19.4 FINDINGS Left Ventricle Mildly increased septal wall thickness. Mildly increased posterior wall thickness. Severely increased left ventricular diastolic volume. Severely increased left ventricular systolic volume. Moderately decreased left ventricular ejection fraction. Left ventricular ejection fraction is estimated at 25-30 %. Moderately reduced global left ventricular systolic function. Right Ventricle Normal right ventricular size and function. Right ventricular systolic pressure within normal limits. Right Atrium Normal right atrial size. Left Atrium Severely increased left atrial volume. Mildly increased left atrial area. Mitral Valve Structurally normal mitral valve. Mitral valve thickened. Mild mitral annular calcification. [id number] mitral regurgitation. Aortic Valve Trileaflet aortic valve. Trace aortic regurgitation. No aortic stenosis. Tricuspid Valve Structurally normal tricuspid valve. Mild tricuspid regurgitation. Pulmonic Valve Structurally normal pulmonic valve. Trace pulmonic regurgitation. Pericardium No pericardial effusion. Pleural effusion. Aorta Normal size aortic root and proximal ascending aorta. CONCLUSIONS Reason for consult: Flash pulmonary edema following albumin infusion for blood pressure of 85 mmHg systolic Increased LV mass with very severe LV dysfunction Left atrial enlargement Previewed by: Dr. Aguila Torre MD (Electronically Signed) Final Date: 24 February 2025 10:27
[2025-02-24 12:01] LABS: Glucose,Whole Blood 103 mg/dL (70-110)
--- NOTE | 2025-02-24 14:57 | P.PN ---
Subjective Progress Note Date: 02/24/25 Principal diagnosis: Reason for follow-up is multiple skin lesion question of cellulitis and multiple antibiotic allergies Patient is a 54-year-old female with a past medical history significant for PE seizure disorder coronary artery disease has been diagnosed with bullous pemphigoid patient has been brought into the hospital concerning for weakness patient did have multiple skin lesions concerning for cellulitis prompting this consultation. On today's evaluation that is 02/24/2025, Patient is afebrile patient is currently intubated on the vent FiO2 50% no significant purulent secretion through the ET or with the changes reported patient is sedated on the vent unable to provide any history. Patient white count is down to 11.35, creatinine 0.54 urine is showing E. coli with resistant pattern sputum is growing Staph aureus Objective - Vital Signs Vital signs: Vital Signs Temp 99.1 F 02/24/25 08:00 Pulse 67 02/24/25 14:15 Resp 24 02/24/25 14:15 BP 101/54 02/24/25 14:15 Pulse Ox 99 02/24/25 14:15 FiO2 50 02/24/25 14:00 Intake & Output 02/23/25 02/24/25 02/24/25 18:59 06:59 18:59 Intake Total 647.327 8922.285 922.302 Output Total 2485 2600 1950 Balance -1638.692 -1450.715 -1027.698 Weight 60.6 kg Intake: IV 630 923 734 0.9 Sodium Chloride 180 240 160 Arterial Line 33 24 Aztreonam 2 gm In Sodium 100 200 Chloride 0.9% 100 ml @ 33 .3 mls/hr IVPB Q8HR [facility] Rx#:[id number] Cefepime 2 gm In Sodium 100 200 100 Chloride 0.9% 100 ml @ 25 mls/hr IVPB Q8H [facility] Rx#: [id number] Magnesium Sulfate-D5w Pmx 100 100 1 gm In Dextrose/Water 1 100ml.bag @ 100 mls/hr IVPB ONCE ONE Rx#: [id number] Vancomycin 1,250 mg In 250 250 250 Sodium Chloride 0.9% 250 ml @ 125 mls/hr IVPB Q12H [facility] Rx#:[id number] Intake, IV Titration 96.308 226.285 128.302 Amount Cisatracurium 200 mg In 29.438 125.375 15.125 Sodium Chloride 0.9% 180 ml @ 1 MCG/KG/MIN 3.75 mls/hr IV .Q24H [facility] Rx#: [id number] Dexmedetomidine/0.9% NaCl 37.876 (Pmx) 400 mcg In Empty Bag 1 bag @ 0.2 MCG/KG/HR 3.03 mls/hr IV .Q24H [facility] Rx#:[id number] Norepinephrine 8 mg In 14.996 30.035 5.019 Sodium Chloride 0.9% 250 ml @ 0.03 MCG/KG/MIN 3. 628 mls/hr IV .Q24H [facility] Rx#:[id number] propofoL 1,000 mg In 51.874 70.875 70.282 Empty Bag 1 bag @ 15 MCG/ KG/MIN 5.625 mls/hr IV . [id number] [facility] Rx#:[id number] Other 120 60 Output: Urine 2485 2600 1950 Other: Voiding Method Indwelling Catheter Indwelling Catheter Indwelling Catheter ABP, PAP, CO, CI - Last Documented Arterial Blood Pressure 110/50 - Exam GENERAL DESCRIPTION: Middle-age female intubated on the vent RESPIRATORY SYSTEM: Unlabored breathing , decreased breath sounds at bases HEART: S1 S2 regular rate and rhythm , ABDOMEN: Soft , no tenderness SKIN: Multiple ulcerated lesions but no significant slough tissue - Labs CBC & Chem 7: 02/24/25 04:35 02/24/25 04:35 Labs: Abnormal Lab Results - Last 24 Hours (Table) 02/23/25 02/23/25 02/23/25 Range/Units 15:00 15:00 17:35 WBC (4.50-10.00) 10*3/uL RBC (4.10-5.20) 10*6/uL Hgb (12.0-15.0) g/dL Hct (37.2-46.3) % MCHC (32.0-37.0) g/dL MPV (9.5-12.2) fL Immature Gran # (0.00-0.04) 10*3/uL Neutrophils # (1.80-7.70) 10*3/uL Eosinophils # (0.04-0.35) 10*3/uL ABG pH (7.35-7.45) ABG pO2 (83-108) mmHg ABG HCO3 (21-25) mmol/L ABG Total CO2 (19-24) mmol/L ABG O2 Saturation (94-97) % Potassium 3.1 L (3.5-5.1) mmol/L Carbon Dioxide (22-30) mmol/L POC Glucose (mg/dL) 111 H (70-110) mg/dL Calcium (8.4-10.2) mg/dL Troponin I 0.358 H* (0.000-0.034) ng/mL 02/24/25 02/24/25 02/24/25 Range/Units 04:35 04:35 05:13 WBC 11.35 H (4.50-10.00) 10*3/uL RBC 3.00 L (4.10-5.20) 10*6/uL Hgb 8.3 L (12.0-15.0) g/dL Hct 26.7 L (37.2-46.3) % MCHC 31.1 L (32.0-37.0) g/dL MPV 9.1 L (9.5-12.2) fL Immature Gran # 0.05 H (0.00-0.04) 10*3/uL Neutrophils # 9.30 H (1.80-7.70) 10*3/uL Eosinophils # 0.53 H (0.04-0.35) 10*3/uL ABG pH 7.54 H (7.35-7.45) ABG pO2 188 H (83-108) mmHg ABG HCO3 33 H (21-25) mmol/L ABG Total CO2 34 H (19-24) mmol/L ABG O2 Saturation 100.0 H (94-97) % Potassium (3.5-5.1) mmol/L Carbon Dioxide 31 H (22-30) mmol/L POC Glucose (mg/dL) (70-110) mg/dL Calcium 7.9 L (8.4-10.2) mg/dL Troponin I (0.000-0.034) ng/mL Microbiology - Last 24 Hours (Table) 02/23/25 04:00 Gram Stain - Preliminary Sputum Sputum Culture - Preliminary Presumptive Staph aureus 02/21/25 01:04 Urine Culture - Final Urine,Catheterized Escherichia coli Assessment and Plan (1) Skin ulcer of multiple sites Current Visit: Yes Status: Acute Code(s): L98.499 - NON-PRESSURE CHRONIC ULCER OF SKIN OF SITES W UNSP SEVERITY SNOMED Code(s): 33210449 (2) Bullous pemphigoid Current Visit: Yes Status: Acute Code(s): L12.0 - BULLOUS PEMPHIGOID SNOMED Code(s): 57093899 (3) Allergy to multiple antibiotics Current Visit: No Status: Acute Code(s): Z88.1 - ALLERGY STATUS TO OTHER ANTIBIOTIC AGENTS SNOMED Code(s): 715479622 Plan: 1 Patient presented to hospital with fall due to generalized weakness which could be related to possible prerenal as the patient and daughter mention air conditioning for the last few days which has been really hot and the patient will drinking enough fluid patient did have multiple skin lesions but there is no slough tissue no surrounding redness patient not running any fever no elevated white count clinically doubt any active cellulitis 2-multiple antibiotic allergies that would limit the number of antibiotics safe to use 3-patient did have a worsening of her clinical condition become less responsive hypertension requiring intubation intubation by ICU chest x-ray with concern for multifocal opacity concerning for pneumonia sputum is growing Staph aureus. 4urine culture positive for drug-resistant E. coli sensitive to ceftriaxone 5the patient afebrile white count is trending down we will continue vancomycin and Azactam, monitor clinical course closely Dictation was produced using [employer] dictation software. please excuse any gr ammatical, word or spelling errors. Time with Patient: Less than 30
--- NOTE | 2025-02-24 15:59 | P.PN ---
Subjective Progress Note Date: 02/24/25 54-year-old female patient got transferred to the intensive care unit because of acute respiratory distress, hypoxemia and diminished level of consciousness. The patient was originally hospitalized on 02/20/2025 for generalized weakness and a fall. She has multiple medical problems and comorbidities. I was involved in her care back in 2021 and at that time the patient had a COVID-19 related pneumonia with prolonged respiratory failure requiring a tracheostomy tube insertion and subsequent removal to facilitate her weaning off the mechanical ventilator. She is also known to have coronary artery disease and cardiac catheterization back in 2008 showed minimal CAD, cardiomyopathy and the most recent echocardiogram from August 2023 showed an ejection fraction of 35 to 40% and global LV hypokinesis. The patient also has paroxysmal atrial fibrillation she has a AICD in place. 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 During this current hospitalization, the patient was seen by cardiology. The patient was also seen by neurology and CT of the brain and the neck revealed no evidence of any dissection of the cervical internal carotid artery or vertebral artery. The patient was asked to continue anticoagulation with Eliquis. The patient was asked to continue Keppra 1.5 g twice a day and Tegretol 200 mg 3 times daily and gabapentin 600 mg p.o. 3 times daily regarding her previous history of seizure disorder. The patient was also seen by wound services as the patient has multiple nonhealing ulceration limited to skin breakdown and bullous pemphigoid. Zinc barrier cream was offered to the patient. The patient was also seen by infectious diseases and the patient was offered broad-spectrum antibiotics with vancomycin Overnight, the patient was hypotensive. The patient was given a bolus of fluid and IV albumin. Subsequently, the patient went into acute respiratory distress and the patient was severely hypoxic. She got transferred to the intensive care unit. Immediately, the patient was intubated and placed on the mechanical ventilator due to lack of oxygenation and altered mentation. Reviewed the chest x-ray postintubation and the patient has diffuse bilateral pulmonary infiltrates consistent with acute pulmonary edema. There is large amount of airspace disease bilaterally and suspect small pleural effusion. At this point in time, the patient is still intubated on a mechanical ventilator. Noted she was started on propofol and she was also given a dose of Nimbex to maintain synchrony with the mechanical ventilator and improve oxygenation. She is currently on assist-control mode at rate of 60, tidal volume of 400, FiO2 100% with a PEEP of 16. The most recent blood gases showed a pH of 7.23 with a PCO2 of 63 and PO251. She is currently on propofol running at 30 mcg/kg/min. Cardiac rhythm is sinus. Blood pressure is stable. No pressors. The patient was given Lasix 40 mg IV every 12 hours. Urine output since arrival to the ICU was in order of more than 200 cc an hour. On today's evaluation of 02/24/2025, the patient is being seen for a follow-up. The patient remains intubated on a mechanical ventilator. The patient is currently on propofol running at 30 mcg/kg/min. The patient is currently off paralytics and Nimbex has been discontinued. The patient remains assist-control mode of mechanical ventilation at rate of 24, tidal volume of 400, FiO2 50% with a PEEP of 5. Blood gases show a pH of 7.54 with a VBH255 and PO2 of 188. Chest x-ray shows improvement of bilateral pulmonary edema. The patient remains on a combination of IV cefepime and aztreonam, and vancomycin.. The patient remains on IV Lasix. Fluid balance is -3 L over the past 24 hours and the patient remains hemodynamically stable. The patient is in sinus tachycardia. The patient has no fever. The white cell, 11.3 with a hemoglobin 8.3 and a platelet count of 311. Sodium is at 140, BUN is 17 and a creatinine of 0.54 and potassium level is at 3.7. The patient remains on anticoagulation with Eliquis 5 mg p.o. twice a day. Rest of the home medications have been resumed. CAT scan of the brain was also performed yesterday and it showed no acute intracranial process. There is a stable remote right large MCA distribution infarct and encephalomalacia. Remote left frontal lobe infarct with encephalomalacia. Echocardiogram was also done on 02/23/2025 and the patient has developed systolic heart failure with a left ventricular ejection fraction of 25 to 30%. There is moderate reduction of the global LV function. There is severe increased left ventricular diastolic volume. There is also mild to moderate mitral regurgitation. No other significant valvular abnormalities has been noted. Remains on Lasix 40 mg IV every 12 hours. Continues to receive wound care. Objective - Vital Signs Vital signs: Vital Signs Temp 99.1 F 02/24/25 08:00 Pulse 115 H 02/24/25 08:30 Resp 24 02/24/25 08:30 BP 111/80 02/24/25 08:30 Pulse Ox 100 02/24/25 08:30 FiO2 50 02/24/25 08:15 Intake & Output 02/23/25 02/24/25 02/24/25 18:59 06:59 18:59 Intake Total 264.694 6896.285 290.001 Output Total 2485 2600 105 Balance -1638.692 -1450.715 185.001 Weight 60.6 kg Intake: IV 630 923 146 0.9 Sodium Chloride 180 240 40 Arterial Line 33 6 Aztreonam 2 gm In Sodium 100 100 Chloride 0.9% 100 ml @ 33 .3 mls/hr IVPB Q8HR [facility] Rx#:[id number] Cefepime 2 gm In Sodium 100 200 Chloride 0.9% 100 ml @ 25 mls/hr IVPB Q8H [facility] Rx#: [id number] Magnesium Sulfate-D5w Pmx 100 100 1 gm In Dextrose/Water 1 100ml.bag @ 100 mls/hr IVPB ONCE ONE Rx#: [id number] Vancomycin 1,250 mg In 250 250 Sodium Chloride 0.9% 250 ml @ 125 mls/hr IVPB Q12H [facility] Rx#:[id number] Intake, IV Titration 96.308 226.285 84.001 Amount Cisatracurium 200 mg In 29.438 125.375 15.125 Sodium Chloride 0.9% 180 ml @ 1 MCG/KG/MIN 3.75 mls/hr IV .Q24H [facility] Rx#: [id number] Norepinephrine 8 mg In 14.996 30.035 Sodium Chloride 0.9% 250 ml @ 0.03 MCG/KG/MIN 3. 628 mls/hr IV .Q24H [facility] Rx#:[id number] propofoL 1,000 mg In 51.874 70.875 68.876 Empty Bag 1 bag @ 15 MCG/ KG/MIN 5.625 mls/hr IV . [id number] [facility] Rx#:[id number] Other 120 60 Output: Urine 2485 2600 105 Other: Voiding Method Indwelling Catheter Indwelling Catheter Indwelling Catheter ABP, PAP, CO, CI - Last Documented Arterial Blood Pressure 106/51 - Exam The patient appeared well nourished and normally developed. Vital signs as documented. The patient is intubated on a mechanical ventilator. Orogastric and orotracheal tube in place and the patient has extensive skin lesions, no active bullous disease and the majority of the skin lesions are superficial of various sizes involving the lower extremities, upper extremities and torso. Head exam is unremarkable. No scleral icterus or corneal arcus noted. Neck is without jugular venous distension, thyromegaly, or carotid bruits. Carotid upstrokes are brisk bilaterally. Lungs are clear to auscultation and percussion. Cardiac exam reveals the PMI to be normally sized and situated. Rhythm is regular. First and second heart sounds normal. No murmurs, rubs or gallops. Abdominal exam reveals normal bowel sounds, no masses, no organomegaly and no aortic enlargement. Extremities are nonedematous and both femoral and pedal pulses are normal. Examination of the skin revealed multiple areas of skin ulceration, wounds and skin break. Abnormalities are most of the lower extremities bilaterally. No active vesicle formation. No rashes. Neurologically, the patient is sadated - Labs CBC & Chem 7: 02/24/25 04:35 02/24/25 04:35 Labs: Abnormal Lab Results - Last 24 Hours (Table) 02/23/25 02/23/25 02/23/25 Range/Units 11:05 11:52 15:00 WBC (4.50-10.00) 10*3/uL RBC (4.10-5.20) 10*6/uL Hgb (12.0-15.0) g/dL Hct (37.2-46.3) % MCHC (32.0-37.0) g/dL MPV (9.5-12.2) fL Immature Gran # (0.00-0.04) 10*3/uL Neutrophils # (1.80-7.70) 10*3/uL Eosinophils # (0.04-0.35) 10*3/uL ABG pH (7.35-7.45) ABG pO2 (83-108) mmHg ABG HCO3 (21-25) mmol/L ABG Total CO2 (19-24) mmol/L ABG O2 Saturation (94-97) % Potassium 3.4 L 3.1 L (3.5-5.1) mmol/L Carbon Dioxide (22-30) mmol/L POC Glucose (mg/dL) 138 H (70-110) mg/dL Calcium 7.4 L (8.4-10.2) mg/dL Troponin I (0.000-0.034) ng/mL 02/23/25 02/23/25 02/24/25 Range/Units 15:00 17:35 04:35 WBC (4.50-10.00) 10*3/uL RBC (4.10-5.20) 10*6/uL Hgb (12.0-15.0) g/dL Hct (37.2-46.3) % MCHC (32.0-37.0) g/dL MPV (9.5-12.2) fL Immature Gran # (0.00-0.04) 10*3/uL Neutrophils # (1.80-7.70) 10*3/uL Eosinophils # (0.04-0.35) 10*3/uL ABG pH (7.35-7.45) ABG pO2 (83-108) mmHg ABG HCO3 (21-25) mmol/L ABG Total CO2 (19-24) mmol/L ABG O2 Saturation (94-97) % Potassium (3.5-5.1) mmol/L Carbon Dioxide 31 H (22-30) mmol/L POC Glucose (mg/dL) 111 H (70-110) mg/dL Calcium 7.9 L (8.4-10.2) mg/dL Troponin I 0.358 H* (0.000-0.034) ng/mL 02/24/25 02/24/25 Range/Units 04:35 05:13 WBC 11.35 H (4.50-10.00) 10*3/uL RBC 3.00 L (4.10-5.20) 10*6/uL Hgb 8.3 L (12.0-15.0) g/dL Hct 26.7 L (37.2-46.3) % MCHC 31.1 L (32.0-37.0) g/dL MPV 9.1 L (9.5-12.2) fL Immature Gran # 0.05 H (0.00-0.04) 10*3/uL Neutrophils # 9.30 H (1.80-7.70) 10*3/uL Eosinophils # 0.53 H (0.04-0.35) 10*3/uL ABG pH 7.54 H (7.35-7.45) ABG pO2 188 H (83-108) mmHg ABG HCO3 33 H (21-25) mmol/L ABG Total CO2 34 H (19-24) mmol/L ABG O2 Saturation 100.0 H (94-97) % Potassium (3.5-5.1) mmol/L Carbon Dioxide (22-30) mmol/L POC Glucose (mg/dL) (70-110) mg/dL Calcium (8.4-10.2) mg/dL Troponin I (0.000-0.034) ng/mL Microbiology - Last 24 Hours (Table) 02/23/25 04:00 Gram Stain - Preliminary Sputum 02/21/25 01:04 Urine Culture - Final Urine,Catheterized Escherichia coli Assessment and Plan Plan: acute hypoxic respiratory failure, likely secondary to acute pulmonary edema. The patient has developed dense and diffuse bilateral pulmonary consolidation and the patient was severely hypoxic, failed BiPAP therapy and the patient was intubated on 02/23/2025. The patient remains in pulmonary edema although the chest x-ray findings have improved in the oxygenation is also improved. The patient is currently on IV Lasix. BP is under adequate control. Remains sedated, synchronous with mechanical ventilator. Chest x-ray was noted. Blood gas was noted Systolic heart failure with impaired LV function with an ejection fraction of 25 to 30%, based on a repeat echocardiogram that was done on 02/23/2025. Generalized weakness/fall without syncope at the time of admission. The patient was ruled out for any new stroke Bullous pemphigoid disease with multiple skin wounds and eroded and friable bulla throughout the upper and lower extremities and the trunk. No active area of cellulitis at this point was noted. Nevertheless, the skin lesions are diffuse on multiple. History of CHF/ Cardiomyopathy and LV dysfunction with ejection fraction of 30- 35%. Paroxysmal atrial fibrillation, anticoagulated with Eliquis Previous history of COVID-19 pneumonia, 2021, recovered. The patient was i ntubated back in August 2021 the patient required prolonged mechanical ventilation and tracheostomy tube insertion to facilitate her weaning. Seizure disorder Pulmonary embolism, on long-term treatment with Eliquis. No signs of any bleeding. History of pacemaker implantation. 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 The PEEP is currently down to 5. Continue and aztreonam. ID is on the case. Cefepime and vancomycin Obtain sputum Gram stain and culture Obtain blood cultures Diuresis with Lasix 40 mg IV push every 12 hours Echocardiogram was noted Continue amiodarone 200 mg p.o. daily Continue anticoagulation with Eliquis 5 mg p.o. twice a day Wound care and wound service have been consulted and the patient Establish a triple-lumen catheter Continue daily prednisone dose of 10 mg p.o. daily Continue Seroquel Check thyroid function test Initiate enteral feeding for nutritional support Continue following up this patient along with the rest of the consultants. Not ready for further weaning at this point. This evaluation was done and 35 minutes. This is a critical care evaluation. Time with Patient: Greater than 30
[2025-02-24 17:28] LABS: Glucose,Whole Blood 105 mg/dL (70-110)
[2025-02-24 23:50] LABS: Glucose,Whole Blood 85 mg/dL (70-110)
[2025-02-25 05:27] LABS: ABG HCO3 31 mmol/L (21-25); ABG PCO2 36 mmHg (35-45); ABG PH 7.54 (7.35-7.45); ABG PO2 131 mmHg (83-108); ABG TCO2 32 mmol/L (19-24); Allen Test Performed? Yes
[2025-02-25 05:47] LABS: Basophils # (A) 0.05 10*3/uL (0.00-0.10); Basophils % (A) 0.5 %; Eosinophils # (A) 1.15 10*3/uL (0.04-0.35); Eosinophils % (A) 11.7 %; HCT 26.5 % (37.2-46.3); HGB 8.1 g/dL (12.0-15.0); Lymphocytes # (A) 1.06 10*3/uL (0.90-5.00); Lymphocytes % (A) 10.8 %; MCH 27.3 pg (27.0-32.0); MCHC 30.6 g/dL (32.0-37.0); MCV 89.2 fL (80.0-97.0); Monocytes # (A) 0.38 10*3/uL (0.20-1.00); Monocytes % (A) 3.9 %; Neutrophils # (A) 7.16 10*3/uL (1.80-7.70); Neutrophils % (A) 72.8 %; Platelet Count 351 10*3/uL (140-440); RBC 2.97 10*6/uL (4.10-5.20); RDW 17.1 % (11.5-14.5); WBC 9.83 10*3/uL (4.50-10.00)
[2025-02-25 06:05] LABS: African American GFR (CKD) >90 (>60 ml/min/1.73 sqM); Anion Gap 8 mmol/L; Blood Urea Nitrogen 23 mg/dL (7-17); Calcium 8.1 mg/dL (8.4-10.2); Carbon Dioxide 29 mmol/L (22-30); Chloride 103 mmol/L (98-107); Glucose 75 mg/dL (74-99); Magnesium 1.8 mg/dL (1.6-2.3); Non-African American GFR(CKD) >90 (>60 ml/min/1.73 sqM); Potassium 3.3 mmol/L (3.5-5.1); Sodium 140 mmol/L (137-145)
[2025-02-25] MEDS: MAGNESIUM SULFATE-D5W PMX 1 GM in DEXTROSE/WATER 1 100ML.BAG IVPB ONE (06:25)
[2025-02-25] MEDS: POTASSIUM BICARBONATE/CIT AC 20 MEQ TABLET.EFF NG-TUBE SCH (06:25)
--- NOTE | 2025-02-25 06:42 | P.PN ---
Subjective This is a pleasant 54 years old female who was recently diagnosed with bullous pemphigoid 3 months ago when she is sent from this facility to [facility], she had a biopsy followed by treatment with doxycycline and taper prednisone over 3 weeks. Also she has extensive long history of CHF and seizure disorder. She was previously in the ICU for severe sepsis. Now presents because of generalized weakness. Patient states she went and fell today while she was trying to get up to go to the restroom she found a green chair on her way she was too weak to move with so she fell on her buttocks she could not get up as usual so she called the family who helped her and called EMS. Patient stayed on the floor for about 25 minutes as she explains. Denies any abdominal pain vomiting or diarrhea Denies dysuria urgency but states she has not been since yesterday and she has been drinking a lot of water for this reason Denies chest pain or dyspnea or coughing. No headache dizziness She is a known case of previous stroke and severe left hemiparesis, patient states it is worse than before this time. Also there was some concern from some slurred speech but no double vision. Patient complains from feeling swollen in her legs She has extensive bullous disease, majority of them are ruptured throughout her trunk and extremities and there is surrounding with erythema more extensive edema in the lower extremities bilaterally. However there is no purulent discharge. 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 Noriega neurologist is Dr. quiroz Patient with no fever blood pressure slightly on the low side but patient is symptomatic Blood pressure is fluctuation slightly on the low side Hemoglobin 10 WBC normal 8.6. Rest of labs unremarkable including electrolytes proBNP 1740 CT of the head and neck showing moderate stenosis of bilateral internal carotid arteries CT of the brain showing remote right large MCA territory infarct with encephalomalacia and remote left frontal infarct with encephalomalacia and bilateral cerebellar encephalomalacia Chest x-ray showing mild interstitial prominence may be bronchitis rule out mild pulmonary vascular congestion 02/21 Patient awake alert She looks hypovolemic with positive orthostatic vitals, yesterday we will give her a bolus of 500 cc. Albumin dropped from 2.7 down to 2.0. Patient has slightly worse leg swelling. She has multiple friable and ruptured bullae on the trunk and extremities with mild erythema surrounding these bullae especially in the lower extremities. These are chronic for the last 3 months diagnosed with bullous pemphigoid. Patient states that she took the steroids and that did not help much. She denies chest pain or dyspnea. No abdominal pain or vomiting. Patient currently not on antibiotics per ID team recommendation to keep monitoring while off antibiotics. No fever. Patient was on doxycycline for her bullous lesions at [facility] not sure if she needed for now, keep holding doxycycline. Cardiology is going to evaluate the patient. Neurology service also on the case however patient has chronic hemiplegia, and this morning she is not sure if it is left hemiplegia is at baseline or worse, however is severe and does not make much difference. No slurred speech no blurry vision. 02/22 Patient is looks tired lethargic Kirlin in bed and was shivering in the morning and developing fever also she is tachycardic and blood pressure is soft No chest pain or abdominal pain Still has erythema and swelling of both lower extremities suspected secondary to cellulitis, MRSA suspected and currently she is on IV vancomycin with infectious disease team recommendation She has good urine output and creatinine within the reference range. We give her a bolus of albumin given her hypoalbuminemia also if blood pressure remains low may consider a bolus of normal saline later on Midodrine was prescribed on admission as needed for hypotension but was not given by staff despite low blood pressure therefore we are going to switch it to standing dose Monitor labs and electrolytes and vitals closely 02/23 Patient yesterday was found unresponsive on the floor and there was foam in her mouth A team was called Patient got intubated and placed on mechanical ventilation transferred to the ICU. Patient currently intubated and sedated. Yesterday patient was hypotensive and tachycardic and altered mental status. This morning required Levophed 02/23 Patient remains in the ICU intubated and sedated, PEEP is 5 improved Female family member at bedside. Patient earlier was able to work She opened eyes and tried to communicate and she could recognize the family member, she was anxious as per family Patient required small dose of pressors earlier Continue on same antibiotics as per infectious disease team Off IV fluid Echocardiogram showed ejection fraction of 25 to 30% Increased left ventricular mass with very severe LV dysfunction Sputum culture growing Staph aureus pansensitive he Patient's rash of the lower extremity is significantly improved Discussed the case with pulmonary team Active Medications Generic Name Dose Route Start Last Admin Trade Name Freq PRN Reason Stop Dose Admin Acetaminophen 325 mg 02/21/25 01:15 02/22/25 20:23 Acetaminophen Tab 325 Mg Tab PO 325 mg Q6HR PRN Administration Fever and/ or Pain Amiodarone HCl 200 mg 02/21/25 09:00 02/24/25 08:09 Amiodarone 200 Mg Tab PO 200 mg DAILY ADDIE Administration Apixaban 5 mg 02/21/25 09:00 02/24/25 20:57 Apixaban 5 Mg Tab PO 5 mg BID ADDIE Administration Protocol Atorvastatin Calcium 80 mg 02/21/25 09:00 02/24/25 08:09 Atorvastatin 80 Mg Tab PO 80 mg DAILY ADDIE Administration Carbamazepine 200 mg 02/21/25 09:00 02/24/25 21:06 Carbamazepine 200 Mg Tab PO 200 mg TID ADDIE Administration Chlorhexidine Gluconate 15 ml 02/23/25 09:00 02/24/25 20:56 Chlorhexidine Gluconate 15 Ml Cup MUCOUS MEM 15 ml BID ADDIE Administration Famotidine 20 mg 02/21/25 09:00 02/24/25 20:57 Famotidine 20 Mg/2 Ml Vial IV 20 mg Q12HR ADDIE Administration Furosemide 40 mg 02/23/25 04:07 02/24/25 20:57 Furosemide 10 Mg/Ml 4 Ml Vial IV 40 mg Q12HR ADD[facility] Administration Gabapentin 600 mg 02/21/25 16:00 02/24/25 21:06 Gabapentin 300 Mg Cap PO 600 mg TID ADDIE Administration Vancomycin HCl 1,250 mg/ 250 mls @ 125 mls/hr 02/21/25 23:00 02/24/25 23:30 Sodium Chloride IVPB 125 mls/hr Q12H ADDIE Administration Propofol 1,000 mg/ IV Solution 100 mls @ 5.625 mls/hr 02/23/25 04:00 02/24/25 08:35 IV 0 mcg/kg/min .[id number] [facility] 0 mls/hr Titration Protocol 15 MCG/KG/MIN Cisatracurium Besylate 200 mg/ 200 mls @ 3.75 mls/hr 02/23/25 04:30 02/25/25 03:05 Sodium Chloride IV Not Given .Q24H [facility] Protocol 1 MCG/KG/MIN Cefepime HCl 2 gm/ Sodium 100 mls @ 25 mls/hr 02/23/25 10:00 02/25/25 03:04 Chloride IVPB 25 mls/hr Q8H [facility] Administration Norepinephrine Bitartrate 8 mg 258 mls @ 3.628 mls/hr 02/23/25 10:00 02/25/25 06:37 / Sodium Chloride IV 0.03 mcg/kg/min .Q24H [facility] 3.628 mls/hr Titration Protocol 0.03 MCG/KG/MIN Aztreonam 2 gm/ Sodium 100 mls @ 33.3 mls/hr 02/23/25 16:00 02/25/25 00:37 Chloride IVPB 33.3 mls/hr Q8HR ADDIE Administration Protocol Dexmedetomidine HCl 400 mcg/ 100 mls @ 3.03 mls/hr 02/24/25 09:45 02/25/25 05:17 IV Solution IV 0.4 mcg/kg/hr .Q24H [facility] 6.06 mls/hr Administration Protocol 0.2 MCG/KG/HR Magnesium Sulfate/Dextrose 1 100 mls @ 100 mls/hr 02/25/25 07:00 02/25/25 06:25 gm/ IV Solution IVPB 02/25/25 07:59 100 mls/hr ONCE ONE Administration Protocol Levetiracetam 1,500 mg 02/23/25 10:30 02/24/25 20:56 Levetiracetam Iv 500 Mg/5 Ml Vial IV 1,500 mg BID ADDIE Administration Miscellaneous Information 1 each 02/23/25 05:53 Magnesium Replacement Protocol 1 Each Misc MISCELLANE DAILY PRN Per Protocol Protocol Miscellaneous Information 1 each 02/23/25 16:15 Potassium Replacement Protocol 1 Each Misc MISCELLANE DAILY PRN Per Protocol Protocol Naloxone HCl 0.2 mg 02/20/25 15:25 Naloxone 0.4 Mg/Ml 1 Ml Vial IV Q2M PRN Opioid Reversal Nystatin 500,000 unit 02/21/25 18:00 02/24/25 21:49 Nystatin 100,000 Unit/Ml Susp 500,000 Unit/5 Ml Cup PO 500,000 unit QID ADDIE Administration Protocol Petrolatum 1 applic 02/22/25 09:58 Zinc Oxide Paste (Z-Guard) 1 Applic TOPICAL DAILY PRN Wound Healing Protocol Potassium Bicarbonate 20 meq 02/25/25 07:30 02/25/25 06:25 Potassium Bicarbonate/Cit Ac 20 Meq Tablet.Eff NG-TUBE 02/25/25 08:31 20 meq Q1H ADDIE Administration Protocol Prednisone 10 mg 02/21/25 10:15 02/24/25 08:10 Prednisone 10 Mg Tab PO 10 mg DAILY ADDIE Administration Quetiapine Fumarate 25 mg 02/21/25 09:00 02/24/25 20:57 Quetiapine 25 Mg Tab PO 25 mg BID ADDIE Administration Objective - Vital Signs Vital signs: Vital Signs Temp 99.1 F 02/24/25 08:00 Pulse 115 H 02/24/25 08:30 Resp 24 02/24/25 08:30 BP 111/80 02/24/25 08:30 Pulse Ox 100 02/24/25 08:30 FiO2 50 02/24/25 09:38 Intake & Output 02/23/25 02/24/25 02/24/25 18:59 06:59 18:59 Intake Total 606.987 4409.285 290.001 Output Total 2485 2600 105 Balance -1638.692 -1450.715 185.001 Weight 60.6 kg Intake: IV 630 923 146 0.9 Sodium Chloride 180 240 40 Arterial Line 33 6 Aztreonam 2 gm In Sodium 100 100 Chloride 0.9% 100 ml @ 33 .3 mls/hr IVPB Q8HR [facility] Rx#:[id number] Cefepime 2 gm In Sodium 100 200 Chloride 0.9% 100 ml @ 25 mls/hr IVPB Q8H [facility] Rx#: [id number] Magnesium Sulfate-D5w Pmx 100 100 1 gm In Dextrose/Water 1 100ml.bag @ 100 mls/hr IVPB ONCE ONE Rx#: [id number] Vancomycin 1,250 mg In 250 250 Sodium Chloride 0.9% 250 ml @ 125 mls/hr IVPB Q12H [facility] Rx#:[id number] Intake, IV Titration 96.308 226.285 84.001 Amount Cisatracurium 200 mg In 29.438 125.375 15.125 Sodium Chloride 0.9% 180 ml @ 1 MCG/KG/MIN 3.75 mls/hr IV .Q24H [facility] Rx#: [id number] Norepinephrine 8 mg In 14.996 30.035 0 Sodium Chloride 0.9% 250 ml @ 0.03 MCG/KG/MIN 3. 628 mls/hr IV .Q24H [facility] Rx#:[id number] propofoL 1,000 mg In 51.874 70.875 68.876 Empty Bag 1 bag @ 15 MCG/ KG/MIN 5.625 mls/hr IV . [id number] [facility] Rx#:[id number] Other 120 60 Output: Urine 2485 2600 105 Other: Voiding Method Indwelling Catheter Indwelling Catheter Indwelling Catheter ABP, PAP, CO, CI - Last Documented Arterial Blood Pressure 106/51 - Exam GENERAL: The patient is alert and oriented x3, not in any acute distress. Well developed, well nourished. HEENT: Pupils are round and equally reacting to light. EOMI. No scleral icterus. No conjunctival pallor. Normocephalic, atraumatic. No pharyngeal erythema. No thyromegaly. CARDIOVASCULAR: S1 and S2 present. No murmurs, rubs, or gallops. PULMONARY: Chest is clear to auscultation, no wheezing , no crackles. ABDOMEN: Soft, nontender, nondistended, normoactive bowel sounds. No palpable organomegaly. MUSCULOSKELETAL: No joint swelling or deformity. EXTREMITIES: No cyanosis, clubbing, or pedal edema. -Multiple eroded bullae and friable bullae with surrounding erythema throughout trunk and extremities ( bullous pemphigoid ) -NEUROLOGICAL: Gross neurological examination did not reveal any focal deficits. sever left hemiparesis (old per pt) SKIN: No rashes. no petechiae. - Labs CBC & Chem 7: 02/25/25 04:45 02/25/25 04:45 Labs: Abnormal Lab Results - Last 24 Hours (Table) 02/23/25 02/23/25 02/23/25 Range/Units 11:05 11:52 15:00 WBC (4.50-10.00) 10*3/uL RBC (4.10-5.20) 10*6/uL Hgb (12.0-15.0) g/dL Hct (37.2-46.3) % MCHC (32.0-37.0) g/dL MPV (9.5-12.2) fL Immature Gran # (0.00-0.04) 10*3/uL Neutrophils # (1.80-7.70) 10*3/uL Eosinophils # (0.04-0.35) 10*3/uL ABG pH (7.35-7.45) ABG pO2 (83-108) mmHg ABG HCO3 (21-25) mmol/L ABG Total CO2 (19-24) mmol/L ABG O2 Saturation (94-97) % Potassium 3.4 L 3.1 L (3.5-5.1) mmol/L Carbon Dioxide (22-30) mmol/L POC Glucose (mg/dL) 138 H (70-110) mg/dL Calcium 7.4 L (8.4-10.2) mg/dL Troponin I (0.000-0.034) ng/mL 02/23/25 02/23/25 02/24/25 Range/Units 15:00 17:35 04:35 WBC (4.50-10.00) 10*3/uL RBC (4.10-5.20) 10*6/uL Hgb (12.0-15.0) g/dL Hct (37.2-46.3) % MCHC (32.0-37.0) g/dL MPV (9.5-12.2) fL Immature Gran # (0.00-0.04) 10*3/uL Neutrophils # (1.80-7.70) 10*3/uL Eosinophils # (0.04-0.35) 10*3/uL ABG pH (7.35-7.45) ABG pO2 (83-108) mmHg ABG HCO3 (21-25) mmol/L ABG Total CO2 (19-24) mmol/L ABG O2 Saturation (94-97) % Potassium (3.5-5.1) mmol/L Carbon Dioxide 31 H (22-30) mmol/L POC Glucose (mg/dL) 111 H (70-110) mg/dL Calcium 7.9 L (8.4-10.2) mg/dL Troponin I 0.358 H* (0.000-0.034) ng/mL 02/24/25 02/24/25 Range/Units 04:35 05:13 WBC 11.35 H (4.50-10.00) 10*3/uL RBC 3.00 L (4.10-5.20) 10*6/uL Hgb 8.3 L (12.0-15.0) g/dL Hct 26.7 L (37.2-46.3) % MCHC 31.1 L (32.0-37.0) g/dL MPV 9.1 L (9.5-12.2) fL Immature Gran # 0.05 H (0.00-0.04) 10*3/uL Neutrophils # 9.30 H (1.80-7.70) 10*3/uL Eosinophils # 0.53 H (0.04-0.35) 10*3/uL ABG pH 7.54 H (7.35-7.45) ABG pO2 188 H (83-108) mmHg ABG HCO3 33 H (21-25) mmol/L ABG Total CO2 34 H (19-24) mmol/L ABG O2 Saturation 100.0 H (94-97) % Potassium (3.5-5.1) mmol/L Carbon Dioxide (22-30) mmol/L POC Glucose (mg/dL) (70-110) mg/dL Calcium (8.4-10.2) mg/dL Troponin I (0.000-0.034) ng/mL Microbiology - Last 24 Hours (Table) 02/23/25 04:00 Gram Stain - Preliminary Sputum 02/21/25 01:04 Urine Culture - Final Urine,Catheterized Escherichia coli Assessment and Plan Assessment: Severe sepsis Bilateral lower extremity cellulitis thought secondary to MRSA Hypotension secondary to above Worsening weakness on the left side associated with fall without syncope and transient slurred speech and some swallowing difficulty, rule out new stroke or worsening stroke Bullous pemphigoid with multiple eroded and friable bullae throughout the trunk and extremities with surrounding erythema on doxycycline and prednisone previously Cardiomyopathy with ejection fraction 35% Coronary artery disease History of PE History of stroke with persistent hemiplegia Moderate bilateral internal carotid artery stenosis Seizure disorder with history of breakthrough seizure Generalized weakness Plan: Continue with mechanical ventilation Pulmonary/critical care team consult CT of the brain reviewed Continue with IV vancomycin and follow-up culture results Patient 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 Continue same treatment. Continue with symptomatic treatment. Resume home medication. Monitor labs and vitals. DVT and GI prophylaxis. Further recommendations as per clinical course of the patient DVT prophylaxis: Eliquis GI Prophylaxis: Pepcid PT/OT: Pending Prognosis is guarded
--- NOTE | 2025-02-25 07:01 | XR ---
EXAMINATION TYPE: XR chest 1V portable DATE OF EXAM: 02/25/2025 5:47 AM COMPARISON: Chest radiographs from 02/24/2025. CLINICAL INDICATION: Female, 54 years old with history of Tube placement; [facility] TECHNIQUE: XR chest 1V portable Frontal view of the chest. FINDINGS: Lungs/Pleura: Improved aeration of lungs on today's exam with persistent airspace opacities scattered throughout the lungs. No evidence of pneumothorax or large pleural effusion. Pulmonary vascularity: Unremarkable. Heart/mediastinum: Cardiomediastinal silhouette is unremarkable. Atherosclerotic calcifications are seen in the aorta. Single-lead cardiac conduction device overlying the left hemithorax with lead proj ecting over the right ventricle. Musculoskeletal: No acute osseous pathology. Other findings: None Lines/Tubes: Endotracheal tube with distal tip 5.8 cm above the polo. Nasogastric tube with its distal tip and side-port projecting under the diaphragm. Left internal jugular central venous catheter with distal tip at the cavoatrial junction. IMPRESSION: 1. Similar aeration with persistent multifocal airspace opacities. 2. Stable support lines and tubes. [facility], , 02/25/2025 6:59 AM
--- NOTE | 2025-02-25 07:08 | P.PN ---
Subjective Progress Note Date: 02/25/25 The patient was seen this morning. She continues to be intubated on mechanical ventilation she continues to be hemodynamically stable requiring norepinephrine but she is requiring less norepinephrine compared to before. Urine output continues to be marginal. She is on Lasix IV at 40 mg twice daily. She is not on any cardiomyopathy medications because of the hemodynamical instability and requiring norepinephrine. The echo showed an EF between 25 to 30%. The physical examination is remarkable for intubated patient on mechanical ventilation with diminished breathing sounds bilaterally and regular rate and rhythm. Assessment Acute hypoxic respiratory failure Severe cardiomyopathy Heart failure with reduced ejection fraction Paroxysmal atrial fibrillation Sinus rhythm at this point Multiple comorbid conditions including anemia Plan Continue the current medical regimen Continue oral anticoagulation and amiodarone Continue monitor the kidney function and electrolytes and hemoglobin Follow-up with the patient Objective - Vital Signs Vital signs: Vital Signs Temp 98.3 F 02/25/25 04:00 Pulse 55 L 02/25/25 06:00 Resp 24 02/25/25 06:00 BP 105/57 02/25/25 06:00 Pulse Ox 100 02/25/25 06:00 FiO2 40 02/25/25 05:29 Intake & Output 02/24/25 02/25/25 02/25/25 18:59 06:59 18:59 Intake Total 5153.835 1320.072 Output Total 2100 1665 Balance -1022.081 -652.928 Weight 59.8 kg Intake: IV 826 789 0.9 Sodium Chloride 240 260 Arterial Line 36 39 Aztreonam 2 gm In Sodium 200 100 Chloride 0.9% 100 ml @ 33 .3 mls/hr IVPB Q8HR [facility] Rx#:[id number] Cefepime 2 gm In Sodium 100 140 Chloride 0.9% 100 ml @ 25 mls/hr IVPB Q8H [facility] Rx#: [id number] Vancomycin 1,250 mg In 250 250 Sodium Chloride 0.9% 250 ml @ 125 mls/hr IVPB Q12H [facility] Rx#:[id number] Intake, IV Titration 191.919 223.072 Amount Cisatracurium 200 mg In 15.125 Sodium Chloride 0.9% 180 ml @ 1 MCG/KG/MIN 3.75 mls/hr IV .Q24H [facility] Rx#: [id number] Dexmedetomidine/0.9% NaCl 65.954 78.301 (Pmx) 400 mcg In Empty Bag 1 bag @ 0.2 MCG/KG/HR 3.03 mls/hr IV .Q24H [facility] Rx#:[id number] Magnesium Sulfate-D5w Pmx 100 1 gm In Dextrose/Water 1 100ml.bag @ 100 mls/hr IVPB ONCE ONE Rx#: [id number] Norepinephrine 8 mg In 40.558 44.771 Sodium Chloride 0.9% 250 ml @ 0.03 MCG/KG/MIN 3. 628 mls/hr IV .Q24H [facility] Rx#:[id number] propofoL 1,000 mg In 70.282 Empty Bag 1 bag @ 15 MCG/ KG/MIN 5.625 mls/hr IV . [id number] [facility] Rx#:[id number] Other 60 Output: Urine 2100 1665 Other: Voiding Method Indwelling Catheter Indwelling Catheter ABP, PAP, CO, CI - Last Documented Arterial Blood Pressure 109/45 - Labs CBC & Chem 7: 02/25/25 04:45 02/25/25 04:45 Labs: Abnormal Lab Results - Last 24 Hours (Table) 02/25/25 02/25/25 02/25/25 Range/Units 04:45 04:45 05:20 RBC 2.97 L (4.10-5.20) 10*6/uL Hgb 8.1 L (12.0-15.0) g/dL Hct 26.5 L (37.2-46.3) % MCHC 30.6 L (32.0-37.0) g/dL Eosinophils # 1.15 H (0.04-0.35) 10*3/uL ABG pH 7.54 H (7.35-7.45) ABG pO2 131 H (83-108) mmHg ABG HCO3 31 H (21-25) mmol/L ABG Total CO2 32 H (19-24) mmol/L ABG O2 Saturation 99.6 H (94-97) % Potassium 3.3 L (3.5-5.1) mmol/L BUN 23 H (7-17) mg/dL Calcium 8.1 L (8.4-10.2) mg/dL Microbiology - Last 24 Hours (Table) 02/23/25 15:35 Blood Culture - Preliminary Blood 02/23/25 04:00 Gram Stain - Preliminary Sputum Sputum Culture - Preliminary Presumptive Staph aureus
[2025-02-25 11:36] LABS: Glucose,Whole Blood 101 mg/dL (70-110)
[2025-02-25 12:28] LABS: ABG HCO3 33 mmol/L (21-25); ABG PCO2 43 mmHg (35-45); ABG PH 7.49 (7.35-7.45); ABG PO2 126 mmHg (83-108); ABG TCO2 34 mmol/L (19-24)
[2025-02-25 12:33] LABS: Allen Test Performed? no
--- NOTE | 2025-02-25 13:23 | P.PN ---
Subjective Progress Note Date: 02/25/25 Principal diagnosis: Acute hypoxic respiratory failure secondary to acute pulmonary edema 54-year-old female patient got transferred to the intensive care unit because of acute respiratory distress, hypoxemia and diminished level of consciousness. The patient was originally hospitalized on 02/20/2025 for generalized weakness and a fall. She has multiple medical problems and comorbidities. I was involved in her care back in 2021 and at that time the patient had a COVID-19 related pneumonia with prolonged respiratory failure requiring a tracheostomy tube insertion and subsequent removal to facilitate her weaning off the mechanical ventilator. She is also known to have coronary artery disease and cardiac catheterization back in 2008 showed minimal CAD, cardiomyopathy and the most recent echocardiogram from August 2023 showed an ejection fraction of 35 to 40% and global LV hypokinesis. The patient also has paroxysmal atrial fibrillation she has a AICD in place. 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 During this current hospitalization, the patient was seen by cardiology. The patient was also seen by neurology and CT of the brain and the neck revealed no evidence of any dissection of the cervical internal carotid artery or vertebral artery. The patient was asked to continue anticoagulation with Eliquis. The patient was asked to continue Keppra 1.5 g twice a day and Tegretol 200 mg 3 times daily and gabapentin 600 mg p.o. 3 times daily regarding her previous history of seizure disorder. The patient was also seen by wound services as the patient has multiple nonhealing ulceration limited to skin breakdown and bullous pemphigoid. Zinc barrier cream was offered to the patient. The patient was also seen by infectious diseases and the patient was offered broad-spectrum antibiotics with vancomycin Overnight, the patient was hypotensive. The patient was given a bolus of fluid and IV albumin. Subsequently, the patient went into acute respiratory distress and the patient was severely hypoxic. She got transferred to the intensive care unit. Immediately, the patient was intubated and placed on the mechanical ventilator due to lack of oxygenation and altered mentation. Reviewed the chest x-ray postintubation and the patient has diffuse bilateral pulmonary infiltrates consistent with acute pulmonary edema. There is large amount of airspace disease bilaterally and suspect small pleural effusion. At this point in time, the patient is still intubated on a mechanical ventilator. Noted she was started on propofol and she was also given a dose of Nimbex to maintain synchrony with the mechanical ventilator and improve oxygenation. She is currently on assist-control mode at rate of 60, tidal volume of 400, FiO2 100% with a PEEP of 16. The most recent blood gases showed a pH of 7.23 with a PCO2 of 63 and PO251. She is currently on propofol running at 30 mcg/kg/min. Cardiac rhythm is sinus. Blood pressure is stable. No pressors. The patient was given Lasix 40 mg IV every 12 hours. Urine output since arrival to the ICU was in order of more than 200 cc an hour. On today's evaluation of 02/24/2025, the patient is being seen for a follow-up. The patient remains intubated on a mechanical ventilator. The patient is currently on propofol running at 30 mcg/kg/min. The patient is currently off paralytics and Nimbex has been discontinued. The patient remains assist-control mode of mechanical ventilation at rate of 24, tidal volume of 400, FiO2 50% with a PEEP of 5. Blood gases show a pH of 7.54 with a WKY494 and PO2 of 188. Chest x-ray shows improvement of bilateral pulmonary edema. The patient remains on a combination of IV cefepime and aztreonam, and vancomycin.. The patient remains on IV Lasix. Fluid balance is -3 L over the past 24 hours and the patient remains hemodynamically stable. The patient is in sinus tachycardia. The patient has no fever. The white cell, 11.3 with a hemoglobin 8.3 and a platelet count of 311. Sodium is at 140, BUN is 17 and a creatinine of 0.54 and potass ium level is at 3.7. The patient remains on anticoagulation with Eliquis 5 mg p.o. twice a day. Rest of the home medications have been resumed. CAT scan of the brain was also performed yesterday and it showed no acute intracranial process. There is a stable remote right large MCA distribution infarct and encephalomalacia. Remote left frontal lobe infarct with encephalomalacia. Echocardiogram was also done on 02/23/2025 and the patient has developed systolic heart failure with a left ventricular ejection fraction of 25 to 30%. There is moderate reduction of the global LV function. There is severe increased left ventricular diastolic volume. There is also mild to moderate mitral regurg itation. No other significant valvular abnormalities has been noted. Remains on Lasix 40 mg IV every 12 hours. Continues to receive wound Care. Seen today on 02/25/2025, patient remains in the ICU, intubated and mechanically ventilated, on assist-control rate of 24 tidal volume 400 FiO2 40% and PEEP of 5. Patient is still requiring pressors/norepinephrine at 0.03 mcg/kg/min she is on Precedex at 0.4 mcg/kg/h patient is on Lasix 40 mg IV push every 12 hours she has E. coli in her urine and she is receiving cefepime and Azactam. Her echocardiogram showed severe LV dysfunction with ejection fraction of 25 to 30% patient was intubated on 02/23, still receiving diuretics. Today I plan to give the patient a trial of weaning with pressure support of 10 and CPAP, however her MIP was very low and I decided to continue pressure support and CPAP as long as possible and hopefully repeat her again and hopefully try to wean today. At this point in time she is not ready for extubation. Chest x-ray is showing evidence of improving pulmonary edema. Her WBC is 9.8 hemoglobin is 8.1 basic metabolic profile is normal except for low potassium of 3.3 BUN is 23 creatinine 0.65. Objective - Vital Signs Vital signs: Vital Signs Temp 99.4 F 02/25/25 12:00 Pulse 67 02/25/25 12:00 Resp 19 02/25/25 12:00 BP 117/60 02/25/25 12:00 Pulse Ox 100 02/25/25 12:00 FiO2 50 02/25/25 12:00 Intake & Output 02/24/25 02/25/25 02/25/25 18:59 06:59 18:59 Intake Total 5275.940 7768.072 353.279 Output Total 2100 1665 1050 Balance -1022.081 -652.928 -696.721 Weight 59.8 kg 58.3 kg Intake: IV 826 789 115 0.9 Sodium Chloride 240 260 100 Arterial Line 36 39 15 Aztreonam 2 gm In Sodium 200 100 Chloride 0.9% 100 ml @ 33 .3 mls/hr IVPB Q8HR [facility] Rx#:[id number] Cefepime 2 gm In Sodium 100 140 Chloride 0.9% 100 ml @ 25 mls/hr IVPB Q8H [facility] Rx#: [id number] Vancomycin 1,250 mg In 250 250 Sodium Chloride 0.9% 250 ml @ 125 mls/hr IVPB Q12H [facility] Rx#:[id number] Intake, IV Titration 191.919 223.072 238.279 Amount Aztreonam 2 gm In Sodium 100 Chloride 0.9% 100 ml @ 33 .3 mls/hr IVPB Q8HR [facility] Rx#:[id number] Cefepime 2 gm In Sodium 100 Chloride 0.9% 100 ml @ 25 mls/hr IVPB Q8H [facility] Rx#: [id number] Cisatracurium 200 mg In 15.125 Sodium Chloride 0.9% 180 ml @ 1 MCG/KG/MIN 3.75 mls/hr IV .Q24H [facility] Rx#: [id number] Dexmedetomidine/0.9% NaCl 65.954 78.301 38.279 (Pmx) 400 mcg In Empty Bag 1 bag @ 0.2 MCG/KG/HR 3.03 mls/hr IV .Q24H [facility] Rx#:[id number] Magnesium Sulfate-D5w Pmx 100 1 gm In Dextrose/Water 1 100ml.bag @ 100 mls/hr IVPB ONCE ONE Rx#: [id number] Norepinephrine 8 mg In 40.558 44.771 Sodium Chloride 0.9% 250 ml @ 0.03 MCG/KG/MIN 3. 628 mls/hr IV .Q24H [facility] Rx#:[id number] propofoL 1,000 mg In 70.282 Empty Bag 1 bag @ 15 MCG/ KG/MIN 5.625 mls/hr IV . [id number] [facility] Rx#:[id number] Other 60 Output: Urine 2100 1665 1050 Other: Voiding Method Indwelling Catheter Indwelling Catheter Indwelling Catheter ABP, PAP, CO, CI - Last Documented Arterial Blood Pressure 25/25 - Exam GENERAL: Revealed 54-year-old female sedated intubated mechanically ventilated HEENT: PERRLA, EOMI, nonicteric. Endotracheal tube and orogastric tube are intact CARDIOVASCULAR: S1 and S2 present. No murmurs, rubs, or gallops. PULMONARY: Minimal crackles at the bases no rhonchi no wheezes ABDOMEN: Soft, nontender, nondistended, normoactive bowel sounds. No palpable organomegaly. MUSCULOSKELETAL: No joint swelling or deformity. EXTREMITIES: No cyanosis, clubbing, or pedal edema. Skin:-Friable bullae noted with surrounding erythema -NEUROLOGICAL: Could not assess patient is sedated, on propofol. Psychiatric: Could not assess patient is sedated - Labs CBC & Chem 7: 02/25/25 04:45 02/25/25 04:45 Labs: Abnormal Lab Results - Last 24 Hours (Table) 02/25/25 02/25/25 02/25/25 Range/Units 04:45 04:45 05:20 RBC 2.97 L (4.10-5.20) 10*6/uL Hgb 8.1 L (12.0-15.0) g/dL Hct 26.5 L (37.2-46.3) % MCHC 30.6 L (32.0-37.0) g/dL Eosinophils # 1.15 H (0.04-0.35) 10*3/uL ABG pH 7.54 H (7.35-7.45) ABG pO2 131 H (83-108) mmHg ABG HCO3 31 H (21-25) mmol/L ABG Total CO2 32 H (19-24) mmol/L ABG O2 Saturation 99.6 H (94-97) % Hemoglobin (11.4-16.0) gm/dL Potassium 3.3 L (3.5-5.1) mmol/L BUN 23 H (7-17) mg/dL Calcium 8.1 L (8.4-10.2) mg/dL 02/25/25 Range/Units 12:22 RBC (4.10-5.20) 10*6/uL Hgb (12.0-15.0) g/dL Hct (37.2-46.3) % MCHC (32.0-37.0) g/dL Eosinophils # (0.04-0.35) 10*3/uL ABG pH 7.49 H (7.35-7.45) ABG pO2 126 H (83-108) mmHg ABG HCO3 33 H (21-25) mmol/L ABG Total CO2 34 H (19-24) mmol/L ABG O2 Saturation 98.8 H (94-97) % Hemoglobin 9.1 L (11.4-16.0) gm/dL Potassium (3.5-5.1) mmol/L BUN (7-17) mg/dL Calcium (8.4-10.2) mg/dL Microbiology - Last 24 Hours (Table) 02/23/25 04:00 Gram Stain - Final Sputum Sputum Culture - Final Staphylococcus aureus 02/23/25 15:35 Blood Culture - Preliminary Blood Assessment and Plan Assessment: Impression: Acute hypoxic respiratory failure secondary to acute pulmonary edema Acute systolic congestive heart failure ejection fraction of 25 to 30% Bullous pemphigoid disease Paroxysmal atrial fibrillation History of seizure disorder Chronic bilateral lower extremity cellulitis secondary to MRSA Hypotension secondary to severe sepsis History of underlying coronary artery disease History of pulmonary embolism History of bilateral internal carotid artery stenosis History of CVA with persistent hemiplegia Paroxysmal atrial fibrillation History of pulmonary embolism, on Eliquis History of pacemaker implantation Hypothyroidism History of psoriasis Recommendation: Continue ventilatory support however may give the patient a trial of weaning if she passes all the parameters Continue antibiotics for UTI Continue Lasix 40 mg IV push twice daily Echocardiogram was reviewed Continue amiodarone Continue Eliquis Continue wound care Continue Seroquel Continue nutritional support/enteral feeding Continue GI DVT prophylaxis Continue norepinephrine and titrate accordingly presently 0.03 mcg/kg/min Overall picture remains poor and the patient is critically ill Critical care time is 33 minutes Time with Patient: Greater than 30
--- NOTE | 2025-02-25 14:00 | P.PN ---
Subjective Progress Note Date: 02/25/25 This is a pleasant 54 years old female who was recently diagnosed with bullous pemphigoid 3 months ago when she is sent from this facility to [facility], she had a biopsy followed by treatment with doxycycline and taper prednisone over 3 weeks. Also she has extensive long history of CHF and seizure disorder. She was previously in the ICU for severe sepsis. Now presents because of generalized weakness. Patient states she went and fell today while she was trying to get up to go to the restroom she found a green chair on her way she was too weak to move with so she fell on her buttocks she could not get up as usual so she called the family who helped her and called EMS. Patient stayed on the floor for about 25 minutes as she explains. Denies any abdominal pain vomiting or diarrhea Denies dysuria urgency but states she has not been since yesterday and she has been drinking a lot of water for this reason Denies chest pain or dyspnea or coughing. No headache dizziness She is a known case of previous stroke and severe left hemiparesis, patient states it is worse than before this time. Also there was some concern from some slurred speech but no double vision. Patient complains from feeling swollen in her legs She has extensive bullous disease, majority of them are ruptured throughout her trunk and extremities and there is surrounding with erythema more extensive edema in the lower extremities bilaterally. However there is no purulent discharge. 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 Noriega neurologist is Dr. quiroz Patient with no fever blood pressure slightly on the low side but patient is symptomatic Blood pressure is fluctuation slightly on the low side Hemoglobin 10 WBC normal 8.6. Rest of labs unremarkable including electrolytes proBNP 1740 CT of the head and neck showing moderate stenosis of bilateral internal carotid arteries CT of the brain showing remote right large MCA territory infarct with encephalomalacia and remote left frontal infarct with encephalomalacia and bilateral cerebellar encephalomalacia Chest x-ray showing mild interstitial prominence may be bronchitis rule out mild pulmonary vascular congestion 02/21 Patient awake alert She looks hypovolemic with positive orthostatic vitals, yesterday we will give her a bolus of 500 cc. Albumin dropped from 2.7 down to 2.0. Patient has slightly worse leg swelling. She has multiple friable and ruptured bullae on the trunk and extremities with mild erythema surrounding these bullae especially in the lower extremities. These are chronic for the last 3 months diagnosed with bullous pemphigoid. Patient states that she took the steroids and that did not help much. She denies chest pain or dyspnea. No abdominal pain or vomiting. Patient currently not on antibiotics per ID team recommendation to keep monitoring while off antibiotics. No fever. Patient was on doxycycline for her bullous lesions at [facility] not sure if she needed for now, keep holding doxycycline. Cardiology is going to evaluate the patient. Neurology service also on the case however patient has chronic hemiplegia, and this morning she is not sure if it is left hemiplegia is at baseline or worse, however is severe and does not make much difference. No slurred speech no blurry vision. 02/22 Patient is looks tired lethargic Kirlin in bed and was shivering in the morning and developing fever also she is tachycardic and blood pressure is soft No chest pain or abdominal pain Still has erythema and swelling of both lower extremities suspected secondary to cellulitis, MRSA suspected and currently she is on IV vancomycin with infectious disease team recommendation She has good urine output and creatinine within the reference range. We give her a bolus of albumin given her hypoalbuminemia also if blood pressure remains low may consider a bolus of normal saline later on Midodrine was prescribed on admission as needed for hypotension but was not given by staff despite low blood pressure therefore we are going to switch it to standing dose Monitor labs and electrolytes and vitals closely 02/23 Patient yesterday was found unresponsive on the floor and there was foam in her mouth A team was called Patient got intubated and placed on mechanical ventilation transferred to the ICU. Patient currently intubated and sedated. Yesterday patient was hypotensive and tachycardic and altered mental status. This morning required Levophed 02/23 Patient remains in the ICU intubated and sedated, PEEP is 5 improved Female family member at bedside. Patient earlier was able to work She opened eyes and tried to communicate and she could recognize the family member, she was anxious as per family Patient required small dose of pressors earlier Continue on same antibiotics as per infectious disease team Off IV fluid Echocardiogram showed ejection fraction of 25 to 30% Increased left ventricular mass with very severe LV dysfunction Sputum culture growing Staph aureus pansensitive he Patient's rash of the lower extremity is significantly improved Discussed the case with pulmonary team 02/25. Patient seen and examined. Patient continues to be intubated REVIEW OF SYSTEMS: Review of system cannot be obtained patient currently debated PHYSICAL EXAMINATION: GENERAL: The patient is intubated HEENT: Pupils are round and equally reacting to light. EOMI. No scleral icterus. No conjunctival pallor. Normocephalic, atraumatic. No pharyngeal erythema. No thyromegaly. CARDIOVASCULAR: S1 and S2 present. No murmurs, rubs, or gallops. PULMONARY: Chest is clear to auscultation, no wheezing or crackles. ABDOMEN: Soft, nontender, nondistended, normoactive bowel sounds. No palpable organomegaly. MUSCULOSKELETAL: No joint swelling or deformity. EXTREMITIES: No cyanosis, clubbing, or pedal edema. NEUROLOGICAL: Gross neurological examination did not reveal any focal deficits. SKIN: Multiple areas of skin ulceration and breakdown seen Assessment and plan Acute hypoxic respiratory failure Acute systolic heart failure Severe sepsis Bilateral lower extremity cellulitis thought secondary to MRSA Hypotension secondary to above Worsening weakness on the left side associated with fall without syncope and transient slurred speech and some swallowing difficulty, rule out new stroke or worsening stroke Bullous pemphigoid with multiple eroded and friable bullae throughout the trunk and extremities with surrounding erythema on doxycycline and prednisone previously Cardiomyopathy with ejection fraction 35% Coronary artery disease History of PE History of stroke with persistent hemiplegia Moderate bilateral internal carotid artery stenosis Seizure disorder with history of breakthrough seizure Generalized weakness Monitor vital signs Monitor CBC Monitor CMP Continue telemetry monitoring Continue vent management Aggressive bronchopulmonary hygiene Follow-up on blood cultures Follow-up urine culture Currently on vancomycin and Azactam ID following, on recommendation noted from 02/25. Pulmonology following, recommendation noted from 02/25 Labs and medication were reviewed.. Continue same treatment. Continue with symptomatic treatment. Resume home medication. Monitor labs and vitals. DVT and GI prophylaxis. Further recommendations as per clinical course of the patient Dictation was produced using [employer] dictation software. please excuse any gram matical, word or spelling errors. Objective - Vital Signs Vital signs: Vital Signs Temp 99.0 F 02/25/25 08:00 Pulse 60 02/25/25 10:00 Resp 20 02/25/25 10:00 BP 115/69 02/25/25 10:00 Pulse Ox 100 02/25/25 10:00 FiO2 40 02/25/25 08:33 Intake & Output 02/24/25 02/25/25 02/25/25 18:59 06:59 18:59 Intake Total 2217.986 1014.072 269 Output Total 2100 4645 410 Balance -1022.081 -652.928 -141 Weight 59.8 kg 58.3 kg Intake: IV 826 789 69 0.9 Sodium Chloride 240 260 60 Arterial Line 36 39 9 Aztreonam 2 gm In Sodium 200 100 Chloride 0.9% 100 ml @ 33 .3 mls/hr IVPB Q8HR [facility] Rx#:[id number] Cefepime 2 gm In Sodium 100 140 Chloride 0.9% 100 ml @ 25 mls/hr IVPB Q8H [facility] Rx#: [id number] Vancomycin 1,250 mg In 250 250 Sodium Chloride 0.9% 250 ml @ 125 mls/hr IVPB Q12H [facility] Rx#:[id number] Intake, IV Titration 191.919 223.072 200 Amount Aztreonam 2 gm In Sodium 100 Chloride 0.9% 100 ml @ 33 .3 mls/hr IVPB Q8HR [facility] Rx#:[id number] Cefepime 2 gm In Sodium 100 Chloride 0.9% 100 ml @ 25 mls/hr IVPB Q8H [facility] Rx#: [id number] Cisatracurium 200 mg In 15.125 Sodium Chloride 0.9% 180 ml @ 1 MCG/KG/MIN 3.75 mls/hr IV .Q24H [facility] Rx#: [id number] Dexmedetomidine/0.9% NaCl 65.954 78.301 (Pmx) 400 mcg In Empty Bag 1 bag @ 0.2 MCG/KG/HR 3.03 mls/hr IV .Q24H [facility] Rx#:[id number] Magnesium Sulfate-D5w Pmx 100 1 gm In Dextrose/Water 1 100ml.bag @ 100 mls/hr IVPB ONCE ONE Rx#: [id number] Norepinephrine 8 mg In 40.558 44.771 Sodium Chloride 0.9% 250 ml @ 0.03 MCG/KG/MIN 3. 628 mls/hr IV .Q24H [facility] Rx#:[id number] propofoL 1,000 mg In 70.282 Empty Bag 1 bag @ 15 MCG/ KG/MIN 5.625 mls/hr IV . [id number] [facility] Rx#:[id number] Other 60 Output: Urine 2100 1665 410 Other: Voiding Method Indwelling Catheter Indwelling Catheter Indwelling Catheter ABP, PAP, CO, CI - Last Documented Arterial Blood Pressure 119/51 - Labs CBC & Chem 7: 02/25/25 04:45 02/25/25 04:45 Labs: Abnormal Lab Results - Last 24 Hours (Table) 02/25/25 02/25/25 02/25/25 Range/Units 04:45 04:45 05:20 RBC 2.97 L (4.10-5.20) 10*6/uL Hgb 8.1 L (12.0-15.0) g/dL Hct 26.5 L (37.2-46.3) % MCHC 30.6 L (32.0-37.0) g/dL Eosinophils # 1.15 H (0.04-0.35) 10*3/uL ABG pH 7.54 H (7.35-7.45) ABG pO2 131 H (83-108) mmHg ABG HCO3 31 H (21-25) mmol/L ABG Total CO2 32 H (19-24) mmol/L ABG O2 Saturation 99.6 H (94-97) % Potassium 3.3 L (3.5-5.1) mmol/L BUN 23 H (7-17) mg/dL Calcium 8.1 L (8.4-10.2) mg/dL Microbiology - Last 24 Hours (Table) 02/23/25 15:35 Blood Culture - Preliminary Blood 02/23/25 04:00 Gram Stain - Preliminary Sputum Sputum Culture - Preliminary Presumptive Staph aureus
[2025-02-25 23:56] LABS: Glucose,Whole Blood 85 mg/dL (70-110)
[2025-02-26 04:13] LABS: Basophils # (A) 0.03 10*3/uL (0.00-0.10); Basophils % (A) 0.3 %; Eosinophils # (A) 1.63 10*3/uL (0.04-0.35); Eosinophils % (A) 15.0 %; HCT 28.1 % (37.2-46.3); HGB 8.7 g/dL (12.0-15.0); Lymphocytes # (A) 1.20 10*3/uL (0.90-5.00); Lymphocytes % (A) 11.1 %; MCH 27.9 pg (27.0-32.0); MCHC 31.0 g/dL (32.0-37.0); MCV 90.1 fL (80.0-97.0); Monocytes # (A) 0.42 10*3/uL (0.20-1.00); Monocytes % (A) 3.9 %; Neutrophils # (A) 7.52 10*3/uL (1.80-7.70); Neutrophils % (A) 69.3 %; Platelet Count 366 10*3/uL (140-440); RBC 3.12 10*6/uL (4.10-5.20); RDW 16.8 % (11.5-14.5); WBC 10.84 10*3/uL (4.50-10.00)
[2025-02-26 05:27] LABS: African American GFR (CKD) >90 (>60 ml/min/1.73 sqM); Anion Gap 8 mmol/L; Blood Urea Nitrogen 24 mg/dL (7-17); Calcium 8.2 mg/dL (8.4-10.2); Carbon Dioxide 31 mmol/L (22-30); Chloride 102 mmol/L (98-107); Glucose 93 mg/dL (74-99); Non-African American GFR(CKD) >90 (>60 ml/min/1.73 sqM); Potassium 3.4 mmol/L (3.5-5.1); Sodium 141 mmol/L (137-145)
[2025-02-26 05:39] LABS: ABG HCO3 31 mmol/L (21-25); ABG PCO2 43 mmHg (35-45); ABG PH 7.47 (7.35-7.45); ABG PO2 110 mmHg (83-108); ABG TCO2 32 mmol/L (19-24); Allen Test Performed? Yes
[2025-02-26 06:06] LABS: Glucose,Whole Blood 85 mg/dL (70-110)
[2025-02-26] MEDS: POTASSIUM BICARBONATE/CIT AC 20 MEQ TABLET.EFF NG-TUBE SCH (06:19)
--- NOTE | 2025-02-26 06:29 | XR ---
EXAMINATION TYPE: XR chest 1V portable DATE OF EXAM: 02/26/2025 5:26 AM COMPARISON: Chest radiographs from 02/25/2025. CLINICAL INDICATION: Female, 54 years old with history of Mechanical ventilation; [facility] TECHNIQUE: XR chest 1V portable Frontal view of the chest. FINDINGS: Lungs/Pleura: Improved aeration of lungs on today's exam with persistent airspace opacities scattered throughout the lungs. No evidence of pneumothorax or large pleural effusion. Pulmonary vascularity: Unremarkable. Heart/mediastinum: Cardiomediastinal silhouette is unremarkable. Atherosclerotic calcifications are seen in the aorta. Single-lead cardiac conduction device overlying the left hemithorax with lead proj ecting over the right ventricle. Musculoskeletal: No acute osseous pathology. Other findings: None Lines/Tubes: Endotracheal tube with distal tip 6.2 cm above the polo. Nasogastric tube with its distal tip and side-port projecting under the diaphragm. Left internal jugular central venous catheter with distal tip at the cavoatrial junction. IMPRESSION: 1. Similar aeration with persistent multifocal airspace opacities. 2. Stable support lines and tubes. [facility], , 02/26/2025 6:27 AM
--- NOTE | 2025-02-26 06:55 | P.PN ---
Subjective Progress Note Date: 02/26/25 The patient was seen this morning. She continues to be intubated on mechanical ventilation she continues to be hemodynamically stable requiring norepinephrine but she is requiring less norepinephrine compared to before. Urine output continues to be marginal. She is on Lasix IV at 40 mg twice daily. She is not on any cardiomyopathy medications because of the hemodynamical instability and requiring norepinephrine. The echo showed an EF between 25 to 30%. The physical examination is remarkable for intubated patient on mechanical ventilation with diminished breathing sounds bilaterally and regular rate and rhythm. February 26, 2025 The patient was seen and evaluated this morning. She continues to be intubated. She is still on Lasix IV. The pressure still low requiring norepinephrine but we are coming down with a dose. The chest x-ray was reviewed this morning and seems to be overall better in terms of fluid overload. We potentially can come down with a dose of IV Lasix and possible wean the patient off from norepinephrine. The physical examination is remarkable for regular rhythm with diminished breathing sounds bilaterally and mild bilateral lower extremity edema and skin changes noted. She is on oral anticoagulation. Assessment Acute hypoxic respiratory failure Severe cardiomyopathy Heart failure with reduced ejection fraction Paroxysmal atrial fibrillation Sinus rhythm at this point Multiple comorbid conditions including anemia Plan Continue the current medical regimen Continue oral anticoagulation and amiodarone Continue monitor the kidney function and electrolytes and hemoglobin Consider restarting the patient's back on cardiomyopathy medication once she is off norepinephrine Follow-up with the patient Objective - Vital Signs Vital signs: Vital Signs Temp 98.6 F 02/26/25 04:00 Pulse 68 02/26/25 06:00 Resp 27 H 02/26/25 06:00 BP 111/54 02/26/25 06:00 Pulse Ox 98 02/26/25 06:00 FiO2 50 02/26/25 04:00 Intake & Output 02/25/25 02/25/25 02/26/25 06:59 18:59 06:59 Intake Total 1012.072 848.588 3358.095 Output Total 1665 1420 1415 Balance -652.928 -928.721 -370.905 Weight 59.8 kg 58.3 kg 55.6 kg Intake: IV 789 253 619 0.9 Sodium Chloride 260 220 230 Arterial Line 39 33 39 Aztreonam 2 gm In Sodium 100 Chloride 0.9% 100 ml @ 33 .3 mls/hr IVPB Q8HR [facility] Rx#:[id number] Cefepime 2 gm In Sodium 140 100 Chloride 0.9% 100 ml @ 25 mls/hr IVPB Q8H [facility] Rx#: [id number] Vancomycin 1,250 mg In 250 250 Sodium Chloride 0.9% 250 ml @ 125 mls/hr IVPB Q12H [facility] Rx#:[id number] Intake, IV Titration 223.072 238.279 165.095 Amount Aztreonam 2 gm In Sodium 100 Chloride 0.9% 100 ml @ 33 .3 mls/hr IVPB Q8HR [facility] Rx#:[id number] Cefepime 2 gm In Sodium 100 Chloride 0.9% 100 ml @ 25 mls/hr IVPB Q8H [facility] Rx#: [id number] Dexmedetomidine/0.9% NaCl 78.301 38.279 75.659 (Pmx) 400 mcg In Empty Bag 1 bag @ 0.2 MCG/KG/HR 3.03 mls/hr IV .Q24H [facility] Rx#:[id number] Magnesium Sulfate-D5w Pmx 100 1 gm In Dextrose/Water 1 100ml.bag @ 100 mls/hr IVPB ONCE ONE Rx#: [id number] Norepinephrine 8 mg In 44.771 89.436 Sodium Chloride 0.9% 250 ml @ 0.03 MCG/KG/MIN 3. 628 mls/hr IV .Q24H [facility] Rx#:[id number] Tube Feeding 170 Other 90 Output: Urine 1665 1420 1415 Other: Voiding Method Indwelling Catheter Indwelling Catheter Indwelling Catheter ABP, PAP, CO, CI - Last Documented Arterial Blood Pressure 91/45 - Labs CBC & Chem 7: 02/26/25 04:00 02/26/25 04:00 Labs: Abnormal Lab Results - Last 24 Hours (Table) 02/25/25 02/26/25 02/26/25 Range/Units 12:22 04:00 04:00 WBC 10.84 H (4.50-10.00) 10*3/uL RBC 3.12 L (4.10-5.20) 10*6/uL Hgb 8.7 L (12.0-15.0) g/dL Hct 28.1 L (37.2-46.3) % MCHC 31.0 L (32.0-37.0) g/dL Eosinophils # 1.63 H (0.04-0.35) 10*3/uL ABG pH 7.49 H (7.35-7.45) ABG pO2 126 H (83-108) mmHg ABG HCO3 33 H (21-25) mmol/L ABG Total CO2 34 H (19-24) mmol/L ABG O2 Saturation 98.8 H (94-97) % Hemoglobin 9.1 L (11.4-16.0) gm/dL Potassium 3.4 L (3.5-5.1) mmol/L Carbon Dioxide 31 H (22-30) mmol/L BUN 24 H (7-17) mg/dL Calcium 8.2 L (8.4-10.2) mg/dL 02/26/25 Range/Units 05:35 WBC (4.50-10.00) 10*3/uL RBC (4.10-5.20) 10*6/uL Hgb (12.0-15.0) g/dL Hct (37.2-46.3) % MCHC (32.0-37.0) g/dL Eosinophils # (0.04-0.35) 10*3/uL ABG pH 7.47 H (7.35-7.45) ABG pO2 110 H (83-108) mmHg ABG HCO3 31 H (21-25) mmol/L ABG Total CO2 32 H (19-24) mmol/L ABG O2 Saturation 98.6 H (94-97) % Hemoglobin 8.9 L (11.4-16.0) gm/dL Potassium (3.5-5.1) mmol/L Carbon Dioxide (22-30) mmol/L BUN (7-17) mg/dL Calcium (8.4-10.2) mg/dL Microbiology - Last 24 Hours (Table) 02/23/25 15:35 Blood Culture - Preliminary Blood 02/23/25 04:00 Gram Stain - Final Sputum Sputum Culture - Final Staphylococcus aureus
[2025-02-26] MEDS: VANCOMYCIN TROUGH DUE 1 EACH MISC MISCELLANE ONE (09:22)
--- NOTE | 2025-02-26 09:54 | P.PN ---
Subjective Progress Note Date: 02/25/25 Principal diagnosis: Reason for follow-up is multiple skin lesion question of cellulitis and multiple antibiotic allergies Patient is a 54-year-old female with a past medical history significant for PE seizure disorder coronary artery disease has been diagnosed with bullous pemphigoid patient has been brought into the hospital concerning for weakness patient did have multiple skin lesions concerning for cellulitis prompting this consultation. On today's evaluation that is 02/25/2025, patient has been afebrile, patient remains to be intubated on the vent FiO2 is currently at 40% no significant purulent secretion through the ET or any other changes reported by the nursing staff. Patient white count normalized to 9.83 creatinine 0.65 sputum with MSSA urine with E. coli blood culture has been negative so far Objective - Vital Signs Vital signs: Vital Signs Temp 99.9 F H 02/25/25 16:00 Pulse 92 02/25/25 16:00 Resp 29 H 02/25/25 16:00 BP 97/55 02/25/25 16:00 Pulse Ox 98 02/25/25 16:00 FiO2 40 02/25/25 16:30 Intake & Output 02/24/25 02/25/25 02/25/25 18:59 06:59 18:59 Intake Total 2920.066 2834.072 445.279 Output Total 2100 1665 1350 Balance -1022.081 -652.928 -904.721 Weight 59.8 kg 58.3 kg Intake: IV 826 789 207 0.9 Sodium Chloride 240 260 180 Arterial Line 36 39 27 Aztreonam 2 gm In Sodium 200 100 Chloride 0.9% 100 ml @ 33 .3 mls/hr IVPB Q8HR [facility] Rx#:[id number] Cefepime 2 gm In Sodium 100 140 Chloride 0.9% 100 ml @ 25 mls/hr IVPB Q8H [facility] Rx#: [id number] Vancomycin 1,250 mg In 250 250 Sodium Chloride 0.9% 250 ml @ 125 mls/hr IVPB Q12H [facility] Rx#:[id number] Intake, IV Titration 191.919 223.072 238.279 Amount Aztreonam 2 gm In Sodium 100 Chloride 0.9% 100 ml @ 33 .3 mls/hr IVPB Q8HR [facility] Rx#:[id number] Cefepime 2 gm In Sodium 100 Chloride 0.9% 100 ml @ 25 mls/hr IVPB Q8H [facility] Rx#: [id number] Cisatracurium 200 mg In 15.125 Sodium Chloride 0.9% 180 ml @ 1 MCG/KG/MIN 3.75 mls/hr IV .Q24H [facility] Rx#: [id number] Dexmedetomidine/0.9% NaCl 65.954 78.301 38.279 (Pmx) 400 mcg In Empty Bag 1 bag @ 0.2 MCG/KG/HR 3.03 mls/hr IV .Q24H [facility] Rx#:[id number] Magnesium Sulfate-D5w Pmx 100 1 gm In Dextrose/Water 1 100ml.bag @ 100 mls/hr IVPB ONCE ONE Rx#: [id number] Norepinephrine 8 mg In 40.558 44.771 Sodium Chloride 0.9% 250 ml @ 0.03 MCG/KG/MIN 3. 628 mls/hr IV .Q24H [facility] Rx#:[id number] propofoL 1,000 mg In 70.282 Empty Bag 1 bag @ 15 MCG/ KG/MIN 5.625 mls/hr IV . [id number] [facility] Rx#:[id number] Other 60 Output: Urine 2100 1665 1350 Other: Voiding Method Indwelling Catheter Indwelling Catheter Indwelling Catheter ABP, PAP, CO, CI - Last Documented Arterial Blood Pressure 108/48 - Exam GENERAL DESCRIPTION: Middle-age female intubated on the vent RESPIRATORY SYSTEM: Unlabored breathing , decreased breath sounds at bases HEART: S1 S2 regular rate and rhythm , ABDOMEN: Soft , no tenderness SKIN: Multiple ulcerated lesions but no significant slough tissue - Labs CBC & Chem 7: 02/26/25 04:00 02/26/25 04:00 Labs: Abnormal Lab Results - Last 24 Hours (Table) 02/25/25 02/25/25 02/25/25 Range/Units 04:45 04:45 05:20 RBC 2.97 L (4.10-5.20) 10*6/uL Hgb 8.1 L (12.0-15.0) g/dL Hct 26.5 L (37.2-46.3) % MCHC 30.6 L (32.0-37.0) g/dL Eosinophils # 1.15 H (0.04-0.35) 10*3/uL ABG pH 7.54 H (7.35-7.45) ABG pO2 131 H (83-108) mmHg ABG HCO3 31 H (21-25) mmol/L ABG Total CO2 32 H (19-24) mmol/L ABG O2 Saturation 99.6 H (94-97) % Hemoglobin (11.4-16.0) gm/dL Potassium 3.3 L (3.5-5.1) mmol/L BUN 23 H (7-17) mg/dL Calcium 8.1 L (8.4-10.2) mg/dL 02/25/25 Range/Units 12:22 RBC (4.10-5.20) 10*6/uL Hgb (12.0-15.0) g/dL Hct (37.2-46.3) % MCHC (32.0-37.0) g/dL Eosinophils # (0.04-0.35) 10*3/uL ABG pH 7.49 H (7.35-7.45) ABG pO2 126 H (83-108) mmHg ABG HCO3 33 H (21-25) mmol/L ABG Total CO2 34 H (19-24) mmol/L ABG O2 Saturation 98.8 H (94-97) % Hemoglobin 9.1 L (11.4-16.0) gm/dL Potassium (3.5-5.1) mmol/L BUN (7-17) mg/dL Calcium (8.4-10.2) mg/dL Microbiology - Last 24 Hours (Table) 02/23/25 04:00 Gram Stain - Final Sputum Sputum Culture - Final Staphylococcus aureus 02/23/25 15:35 Blood Culture - Preliminary Blood Assessment and Plan (1) Skin ulcer of multiple sites Current Visit: Yes Status: Acute Code(s): L98.499 - NON-PRESSURE CHRONIC ULCER OF SKIN OF SITES W UNSP SEVERITY SNOMED Code(s): 20586714 (2) Bullous pemphigoid Current Visit: Yes Status: Acute Code(s): L12.0 - BULLOUS PEMPHIGOID SNOMED Code(s): 90272610 (3) Allergy to multiple antibiotics Current Visit: No Status: Acute Code(s): Z88.1 - ALLERGY STATUS TO OTHER ANTIBIOTIC AGENTS SNOMED Code(s): 655044647 Plan: 1 Patient presented to hospital with fall due to generalized weakness which could be related to possible prerenal as the patient and daughter mention air conditioning for the last few days which has been really hot and the patient will drinking enough fluid patient did have multiple skin lesions but there is no slough tissue no surrounding redness patient not running any fever no elevated white count clinically doubt any active cellulitis 2-multiple antibiotic allergies that would limit the number of antibiotics safe to use 3-patient did have a worsening of her clinical condition become less responsive hypertension requiring intubation intubation by ICU chest x-ray with concern for multifocal opacity concerning for pneumonia sputum is growing MSSA 4urine culture positive for drug-resistant E. coli sensitive to ceftriaxone 5the patient afebrile white count has normalized patient is currently covered with the cefepime and vancomycin can recently discontinued Dictation was produced using [employer] dictation software. please excuse any grammatical, word or spelling errors. Time with Patient: Less than 30
[2025-02-26 10:21] LABS: African American GFR (CKD) >90 (>60 ml/min/1.73 sqM); Non-African American GFR(CKD) >90 (>60 ml/min/1.73 sqM)
[2025-02-26] MEDS ORDERED: VANCOMYCIN 1,250 MG in SODIUM CHLORIDE 0.9% 250 ML IVPB SCH (11:00)
[2025-02-26 11:50] LABS: Glucose,Whole Blood 102 mg/dL (70-110)
--- NOTE | 2025-02-26 13:04 | P.PN ---
Subjective Progress Note Date: 02/26/25 I am seeing the patient for the first time during this admission. Please refer to Dr. Guillen notes for further details. ICU nurse the patient just was recently extubated today. She is currently on BiPAP. I examined her patient would not allow me to assess her and wanted to be left alone. According to the patient's nurse she has been been very sleepy. It seems the patient has acute respiratory failure due to pulmonary edema. Objective - Vital Signs Vital signs: Vital Signs Temp 98.7 F 02/26/25 12:00 Pulse 102 H 02/26/25 12:00 Resp 28 H 02/26/25 12:00 BP 110/67 02/26/25 12:00 Pulse Ox 97 02/26/25 12:00 FiO2 35 02/26/25 12:14 Intake & Output 02/25/25 02/26/25 02/26/25 18:59 06:59 18:59 Intake Total 728.773 0661.095 226.182 Output Total 1420 1415 955 Balance -928.721 -370.905 -728.818 Weight 58.3 kg 55.6 kg Intake: IV 253 619 115 0.9 Sodium Chloride 220 230 100 Arterial Line 33 39 15 Cefepime 2 gm In Sodium 100 Chloride 0.9% 100 ml @ 25 mls/hr IVPB Q8H [facility] Rx#: [id number] Vancomycin 1,250 mg In 250 Sodium Chloride 0.9% 250 ml @ 125 mls/hr IVPB Q12H [facility] Rx#:[id number] Intake, IV Titration 238.279 165.095 21.182 Amount Aztreonam 2 gm In Sodium 100 Chloride 0.9% 100 ml @ 33 .3 mls/hr IVPB Q8HR [facility] Rx#:[id number] Cefepime 2 gm In Sodium 100 Chloride 0.9% 100 ml @ 25 mls/hr IVPB Q8H [facility] Rx#: [id number] Dexmedetomidine/0.9% NaCl 38.279 75.659 12.272 (Pmx) 400 mcg In Empty Bag 1 bag @ 0.2 MCG/KG/HR 3.03 mls/hr IV .Q24H [facility] Rx#:[id number] Norepinephrine 8 mg In 89.436 8.91 Sodium Chloride 0.9% 250 ml @ 0.03 MCG/KG/MIN 3. 628 mls/hr IV .Q24H [facility] Rx#:[id number] Tube Feeding 170 60 Other 90 30 Output: Urine 1420 1415 955 Other: Voiding Method Indwelling Catheter Indwelling Catheter Indwelling Catheter ABP, PAP, CO, CI - Last Documented Arterial Blood Pressure 71/44 - Exam General: Laying in bed and does not appear in acute distress. Lung: Is on BiPAP. Neuro: Very limited. Has eye closed and waving with her right hand to be left alone. - Labs CBC & Chem 7: 02/26/25 04:00 02/26/25 09:20 Labs: Abnormal Lab Results - Last 24 Hours (Table) 02/26/25 02/26/25 02/26/25 Range/Units 04:00 04:00 05:35 WBC 10.84 H (4.50-10.00) 10*3/uL RBC 3.12 L (4.10-5.20) 10*6/uL Hgb 8.7 L (12.0-15.0) g/dL Hct 28.1 L (37.2-46.3) % MCHC 31.0 L (32.0-37.0) g/dL Eosinophils # 1.63 H (0.04-0.35) 10*3/uL ABG pH 7.47 H (7.35-7.45) ABG pO2 110 H (83-108) mmHg ABG HCO3 31 H (21-25) mmol/L ABG Total CO2 32 H (19-24) mmol/L ABG O2 Saturation 98.6 H (94-97) % Hemoglobin 8.9 L (11.4-16.0) gm/dL Potassium 3.4 L (3.5-5.1) mmol/L Carbon Dioxide 31 H (22-30) mmol/L BUN 24 H (7-17) mg/dL Calcium 8.2 L (8.4-10.2) mg/dL Microbiology - Last 24 Hours (Table) 02/23/25 15:35 Blood Culture - Preliminary Blood 02/23/25 04:00 Gram Stain - Final Sputum Sputum Culture - Final Staphylococcus aureus Assessment and Plan Assessment: * Acute respiratory failure due to acute pulmonary edema. * Status post accidental fall due to losing balance. Patient denies any presyncopal symptoms, loss of consciousness. She is positive it was not a seizure, just accidental fall due to losing balance. * History of CVA with residual spastic left hemiparesis. * Bullous pemphigoid mainly over lower extremities. Follows up with dermatology. * Seizure disorder for long time, seizures in remission since 2009--no further seizures. * History of Atrial Fibrillation, on Eliquis. 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 * History of pacemaker. * CHF Plan: * CT head rule out any intracranial process. * CTA of head and neck revealed no evidence of dissection of the cervical internal carotid arteries or vertebral arteries or any evidence of significant stenosis at the carotid bifurcations. Moderate stenosis involving the cavernous portion of the internal carotid arteries bilaterally secondary to calcified plaque. No evidence of intracranial aneurysm. * Continue Eliquis 5 mg twice daily for stroke prevention from A-fib. * Hemoglobin A1c 5.6, fasting lipid panel with cholesterol 102, LDL 48, HDL 36 and triglycerides 86. Lipids are well-controlled. * Per Dr. Rocha, continue seizure medications including Keppra 1500 mg twice daily, Tegretol 200 mg 3 times daily and gabapentin 600 mg 3 times daily. * Tegretol 12.8 (4-12) and Keppra 50.6 (3-60). Patient states that she has been on these medications since 2008 tolerating it well. She does not believe rash is from these medications. Patient wishes to continue same dose of her seizure medications. * For bullous pemphigoid, patient to follow-up with her mortgage analyst. Patient states mortgage analyst mentioned that rash was from metoprolol, which they have discontinued. Will follow-up with the patient sporadically. Time with Patient: Less than 30
--- NOTE | 2025-02-26 13:15 | P.PN ---
Subjective Progress Note Date: 02/26/25 Principal diagnosis: Acute hypoxic respiratory failure secondary to acute pulmonary edema 54-year-old female patient got transferred to the intensive care unit because of acute respiratory distress, hypoxemia and diminished level of consciousness. The patient was originally hospitalized on 02/20/2025 for generalized weakness and a fall. She has multiple medical problems and comorbidities. I was involved in her care back in 2021 and at that time the patient had a COVID-19 related pneumonia with prolonged respiratory failure requiring a tracheostomy tube insertion and subsequent removal to facilitate her weaning off the mechanical ventilator. She is also known to have coronary artery disease and cardiac catheterization back in 2008 showed minimal CAD, cardiomyopathy and the most recent echocardiogram from August 2023 showed an ejection fraction of 35 to 40% and global LV hypokinesis. The patient also has paroxysmal atrial fibrillation she has a AICD in place. 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 During this current hospitalization, the patient was seen by cardiology. The patient was also seen by neurology and CT of the brain and the neck revealed no evidence of any dissection of the cervical internal carotid artery or vertebral artery. The patient was asked to continue anticoagulation with Eliquis. The patient was asked to continue Keppra 1.5 g twice a day and Tegretol 200 mg 3 times daily and gabapentin 600 mg p.o. 3 times daily regarding her previous history of seizure disorder. The patient was also seen by wound services as the patient has multiple nonhealing ulceration limited to skin breakdown and bullous pemphigoid. Zinc barrier cream was offered to the patient. The patient was also seen by infectious diseases and the patient was offered broad-spectrum antibiotics with vancomycin Overnight, the patient was hypotensive. The patient was given a bolus of fluid and IV albumin. Subsequently, the patient went into acute respiratory distress and the patient was severely hypoxic. She got transferred to the intensive care unit. Immediately, the patient was intubated and placed on the mechanical ventilator due to lack of oxygenation and altered mentation. Reviewed the chest x-ray postintubation and the patient has diffuse bilateral pulmonary infiltrates consistent with acute pulmonary edema. There is large amount of airspace disease bilaterally and suspect small pleural effusion. At this point in time, the patient is still intubated on a mechanical ventilator. Noted she was started on propofol and she was also given a dose of Nimbex to maintain synchrony with the mechanical ventilator and improve oxygenation. She is currently on assist-control mode at rate of 60, tidal volume of 400, FiO2 100% with a PEEP of 16. The most recent blood gases showed a pH of 7.23 with a PCO2 of 63 and PO251. She is currently on propofol running at 30 mcg/kg/min. Cardiac rhythm is sinus. Blood pressure is stable. No pressors. The patient was given Lasix 40 mg IV every 12 hours. Urine output since arrival to the ICU was in order of more than 200 cc an hour. On today's evaluation of 02/24/2025, the patient is being seen for a follow-up. The patient remains intubated on a mechanical ventilator. The patient is currently on propofol running at 30 mcg/kg/min. The patient is currently off paralytics and Nimbex has been discontinued. The patient remains assist-control mode of mechanical ventilation at rate of 24, tidal volume of 400, FiO2 50% with a PEEP of 5. Blood gases show a pH of 7.54 with a XBS284 and PO2 of 188. Chest x-ray shows improvement of bilateral pulmonary edema. The patient remains on a combination of IV cefepime and aztreonam, and vancomycin.. The patient remains on IV Lasix. Fluid balance is -3 L over the past 24 hours and the patient remains hemodynamically stable. The patient is in sinus tachycardia. The patient has no fever. The white cell, 11.3 with a hemoglobin 8.3 and a platelet count of 311. Sodium is at 140, BUN is 17 and a creatinine of 0.54 and potass ium level is at 3.7. The patient remains on anticoagulation with Eliquis 5 mg p.o. twice a day. Rest of the home medications have been resumed. CAT scan of the brain was also performed yesterday and it showed no acute intracranial process. There is a stable remote right large MCA distribution infarct and encephalomalacia. Remote left frontal lobe infarct with encephalomalacia. Echocardiogram was also done on 02/23/2025 and the patient has developed systolic heart failure with a left ventricular ejection fraction of 25 to 30%. There is moderate reduction of the global LV function. There is severe increased left ventricular diastolic volume. There is also mild to moderate mitral regurg itation. No other significant valvular abnormalities has been noted. Remains on Lasix 40 mg IV every 12 hours. Continues to receive wound Care. Seen today on 02/25/2025, patient remains in the ICU, intubated and mechanically ventilated, on assist-control rate of 24 tidal volume 400 FiO2 40% and PEEP of 5. Patient is still requiring pressors/norepinephrine at 0.03 mcg/kg/min she is on Precedex at 0.4 mcg/kg/h patient is on Lasix 40 mg IV push every 12 hours she has E. coli in her urine and she is receiving cefepime and Azactam. Her echocardiogram showed severe LV dysfunction with ejection fraction of 25 to 30% patient was intubated on 02/23, still receiving diuretics. Today I plan to give the patient a trial of weaning with pressure support of 10 and CPAP, however her MIP was very low and I decided to continue pressure support and CPAP as long as possible and hopefully repeat her again and hopefully try to wean today. At this point in time she is not ready for extubation. Chest x-ray is showing evidence of improving pulmonary edema. Her WBC is 9.8 hemoglobin is 8.1 basic metabolic profile is normal except for low potassium of 3.3 BUN is 23 creatinine 0.65. Patient was seen today on 02/26/2025, remains in the ICU, intubated and mechanically ventilated, patient is on pressure support and CPAP mode of mechanical ventilation, she has been on it since yesterday, patient is also on 40% FiO2, weaning parameters seem to be a bit better today compared to yesterday, patient follows simple instructions but she does not open her eyes. She is off norepinephrine she used to be on 0.02 mcg/kg/min, patient is hemodynamically stable at this point, however I am a bit concerned about her mental status especially when she does not open her eyes. Seems to be very weak and frail, I did recommend extubation to a pressure support of 10/5 and FiO2 of 40%. Her labs were all reviewed ABG today showed a pO2 of 110 pCO2 43 pH of 7.47 and this was on CPAP earlier. WBC count is 10.8 hemoglobin 8.7, basic metabolic profile is normal potassium is a bit low at 3.4 renal profile is normal. Chest x-ray continues to show multifocal airspace opacities and stable support lines and tubes. Objective - Vital Signs Vital signs: Vital Signs Temp 98.7 F 02/26/25 12:00 Pulse 102 H 02/26/25 12:00 Resp 28 H 07/01/25 12:00 BP 110/67 02/26/25 12:00 Pulse Ox 97 02/26/25 12:00 FiO2 35 02/26/25 12:14 Intake & Output 02/25/25 02/26/25 02/26/25 18:59 06:59 18:59 Intake Total 820.631 8123.095 226.182 Output Total 1420 1415 955 Balance -928.721 -370.905 -728.818 Weight 58.3 kg 55.6 kg Intake: IV 253 619 115 0.9 Sodium Chloride 220 230 100 Arterial Line 33 39 15 Cefepime 2 gm In Sodium 100 Chloride 0.9% 100 ml @ 25 mls/hr IVPB Q8H ADDIE Rx#: [id number] Vancomycin 1,250 mg In 250 Sodium Chloride 0.9% 250 ml @ 125 mls/hr IVPB Q12H [facility] Rx#:[id number] Intake, IV Titration 238.279 165.095 21.182 Amount Aztreonam 2 gm In Sodium 100 Chloride 0.9% 100 ml @ 33 .3 mls/hr IVPB Q8HR [facility]IE Rx#:[id number] Cefepime 2 gm In Sodium 100 Chloride 0.9% 100 ml @ 25 mls/hr IVPB Q8H [facility] Rx#: [id number] Dexmedetomidine/0.9% NaCl 38.279 75.659 12.272 (Pmx) 400 mcg In Empty Bag 1 bag @ 0.2 MCG/KG/HR 3.03 mls/hr IV .Q24H [facility]IE Rx#:[id number] Norepinephrine 8 mg In 89.436 8.91 Sodium Chloride 0.9% 250 ml @ 0.03 MCG/KG/MIN 3. 628 mls/hr IV .Q24H ADDIE Rx#:[id number] Tube Feeding 170 60 Other 90 30 Output: Urine 1420 1415 955 Other: Voiding Method Indwelling Catheter Indwelling Catheter Indwelling Catheter ABP, PAP, CO, CI - Last Documented Arterial Blood Pressure 71/44 - Exam GENERAL: Revealed 54-year-old female on pressure support and CPAP with a pressure support of 10 and PEEP of 5 patient was on CPAP most of the night, did not extubate yesterday mostly because of her marginal weaning parameters and very loudness. HEENT: PERRLA, EOMI, nonicteric. Endotracheal tube and orogastric tube are intact CARDIOVASCULAR: S1 and S2 present. No murmurs, rubs, or gallops. PULMONARY: Minimal crackles at the bases no rhonchi no wheezes ABDOMEN: Soft, nontender, nondistended, normoactive bowel sounds. No palpable organomegaly. MUSCULOSKELETAL: No joint swelling or deformity. EXTREMITIES: No cyanosis, clubbing, or pedal edema. Skin:-Friable bullae noted with surrounding erythema -NEUROLOGICAL: Arousable, follows instructions but does not open her eyes patient is weak Psychiatric: Could not fully assess. - Labs CBC & Chem 7: 02/26/25 04:00 02/26/25 09:20 Labs: Abnormal Lab Results - Last 24 Hours (Table) 02/26/25 02/26/25 02/26/25 Range/Units 04:00 04:00 05:35 WBC 10.84 H (4.50-10.00) 10*3/uL RBC 3.12 L (4.10-5.20) 10*6/uL Hgb 8.7 L (12.0-15.0) g/dL Hct 28.1 L (37.2-46.3) % MCHC 31.0 L (32.0-37.0) g/dL Eosinophils # 1.63 H (0.04-0.35) 10*3/uL ABG pH 7.47 H (7.35-7.45) ABG pO2 110 H (83-108) mmHg ABG HCO3 31 H (21-25) mmol/L ABG Total CO2 32 H (19-24) mmol/L ABG O2 Saturation 98.6 H (94-97) % Hemoglobin 8.9 L (11.4-16.0) gm/dL Potassium 3.4 L (3.5-5.1) mmol/L Carbon Dioxide 31 H (22-30) mmol/L BUN 24 H (7-17) mg/dL Calcium 8.2 L (8.4-10.2) mg/dL Microbiology - Last 24 Hours (Table) 02/23/25 15:35 Blood Culture - Preliminary Blood 02/23/25 04:00 Gram Stain - Final Sputum Sputum Culture - Final Staphylococcus aureus Assessment and Plan Assessment: Impression: Acute hypoxic respiratory failure secondary to acute pulmonary edema Acute systolic congestive heart failure ejection fraction of 25 to 30% Bullous pemphigoid disease Paroxysmal atrial fibrillation History of seizure disorder Chronic bilateral lower extremity cellulitis secondary to MRSA Hypotension secondary to severe sepsis History of underlying coronary artery disease History of pulmonary embolism History of bilateral internal carotid artery stenosis History of CVA with persistent hemiplegia Paroxysmal atrial fibrillation History of pulmonary embolism, on Eliquis History of pacemaker implantation Hypothyroidism History of psoriasis Recommendation: Will continue with pressure support of 10 and CPAP, may actually consider extubation in the next half hour depending on how she does on pressure support of 10 and CPAP. Patient is presently off sedation completely. And she is off pressors. Continue antibiotics for UTI Continue Lasix 40 mg IV push twice daily Echocardiogram was reviewed, showed severe LV dysfunction Continue amiodarone Continue Eliquis Continue wound care Continue Seroquel Continue nutritional support/enteral feeding Continue GI DVT prophylaxis Patient is off norepinephrine today. Patient remains critically ill and prognosis is poor, however this is our best window to consider weaning and extubation will likely extubate from pressure support and CPAP to BiPAP 10/5. Critical care time is 35 minutes Time with Patient: Greater than 30
--- NOTE | 2025-02-26 14:04 | P.PN ---
Subjective Progress Note Date: 02/26/25 This is a pleasant 54 years old female who was recently diagnosed with bullous pemphigoid 3 months ago when she is sent from this facility to [facility], she had a biopsy followed by treatment with doxycycline and taper prednisone over 3 weeks. Also she has extensive long history of CHF and seizure disorder. She was previously in the ICU for severe sepsis. Now presents because of generalized weakness. Patient states she went and fell today while she was trying to get up to go to the restroom she found a green chair on her way she was too weak to move with so she fell on her buttocks she could not get up as usual so she called the family who helped her and called EMS. Patient stayed on the floor for about 25 minutes as she explains. Denies any abdominal pain vomiting or diarrhea Denies dysuria urgency but states she has not been since yesterday and she has been drinking a lot of water for this reason Denies chest pain or dyspnea or coughing. No headache dizziness She is a known case of previous stroke and severe left hemiparesis, patient states it is worse than before this time. Also there was some concern from some slurred speech but no double vision. Patient complains from feeling swollen in her legs She has extensive bullous disease, majority of them are ruptured throughout her trunk and extremities and there is surrounding with erythema more extensive edema in the lower extremities bilaterally. However there is no purulent discharge. No significant tenderness in this erythematous area Her adoption manager Dr. Noriega neurologist is Dr. quiroz Patient with no fever blood pressure slightly on the low side but patient is symptomatic Blood pressure is fluctuation slightly on the low side Hemoglobin 10 WBC normal 8.6. Rest of labs unremarkable including electrolytes proBNP 1740 CT of the head and neck showing moderate stenosis of bilateral internal carotid arteries CT of the brain showing remote right large MCA territory infarct with encephalomalacia and remote left frontal infarct with encephalomalacia and bilateral cerebellar encephalomalacia Chest x-ray showing mild interstitial prominence may be bronchitis rule out mild pulmonary vascular congestion 02/21 Patient awake alert She looks hypovolemic with positive orthostatic vitals, yesterday we will give her a bolus of 500 cc. Albumin dropped from 2.7 down to 2.0. Patient has slightly worse leg swelling. She has multiple friable and ruptured bullae on the trunk and extremities with mild erythema surrounding these bullae especially in the lower extremities. These are chronic for the last 3 months diagnosed with bullous pemphigoid. Patient states that she took the steroids and that did not help much. She denies chest pain or dyspnea. No abdominal pain or vomiting. Patient currently not on antibiotics per ID team recommendation to keep monitoring while off antibiotics. No fever. Patient was on doxycycline for her bullous lesions at [facility] not sure if she needed for now, keep holding doxycycline. Cardiology is going to evaluate the patient. Neurology service also on the case however patient has chronic hemiplegia, and this morning she is not sure if it is left hemiplegia is at baseline or worse, however is severe and does not make much difference. No slurred speech no blurry vision. 02/22 Patient is looks tired lethargic Kirlin in bed and was shivering in the morning and developing fever also she is tachycardic and blood pressure is soft No chest pain or abdominal pain Still has erythema and swelling of both lower extremities suspected secondary to cellulitis, MRSA suspected and currently she is on IV vancomycin with infectious disease team recommendation She has good urine output and creatinine within the reference range. We give her a bolus of albumin given her hypoalbuminemia also if blood pressure remains low may consider a bolus of normal saline later on Midodrine was prescribed on admission as needed for hypotension but was not given by staff despite low blood pressure therefore we are going to switch it to standing dose Monitor labs and electrolytes and vitals closely 02/23 Patient yesterday was found unresponsive on the floor and there was foam in her mouth A team was called Patient got intubated and placed on mechanical ventilation transferred to the ICU. Patient currently intubated and sedated. Yesterday patient was hypotensive and tachycardic and altered mental status. This morning required Levophed 02/23 Patient remains in the ICU intubated and sedated, PEEP is 5 improved Female family member at bedside. Patient earlier was able to work She opened eyes and tried to communicate and she could recognize the family member, she was anxious as per family Patient required small dose of pressors earlier Continue on same antibiotics as per infectious disease team Off IV fluid Echocardiogram showed ejection fraction of 25 to 30% Increased left ventricular mass with very severe LV dysfunction Sputum culture growing Staph aureus pansensitive he Patient's rash of the lower extremity is significantly improved Discussed the case with pulmonary team 02/25. Patient seen and examined. Patient continues to be intubated 02/26. Patient seen and examined. Labs done this morning showed WBC 10.84, hemoglobin 8.7, sodium 141, potassium 3.4, BUN 24, creatinine 0.67, calcium 8.2. Currently on CPAP, planning for patient for extubation today REVIEW OF SYSTEMS: Review of system cannot be obtained patient currently debated PHYSICAL EXAMINATION: GENERAL: The patient is intubated HEENT: Pupils are round and equally reacting to light. EOMI. No scleral icterus. No conjunctival pallor. Normocephalic, atraumatic. No pharyngeal erythema. No thyromegaly. CARDIOVASCULAR: S1 and S2 present. No murmurs, rubs, or gallops. PULMONARY: Chest is clear to auscultation, no wheezing or crackles. ABDOMEN: Soft, nontender, nondistended, normoactive bowel sounds. No palpable organomegaly. MUSCULOSKELETAL: No joint swelling or deformity. EXTREMITIES: No cyanosis, clubbing, or pedal edema. NEUROLOGICAL: Gross neurological examination did not reveal any focal deficits. SKIN: Multiple areas of skin ulceration and breakdown seen Assessment and plan Acute hypoxic respiratory failure Acute systolic heart failure Severe sepsis Bilateral lower extremity cellulitis thought secondary to MRSA Hypotension secondary to above Worsening weakness on the left side associated with fall without syncope and transient slurred speech and some swallowing difficulty, rule out new stroke or worsening stroke Bullous pemphigoid with multiple eroded and friable bullae throughout the trunk and extremities with surrounding erythema on doxycycline and prednisone previously Cardiomyopathy with ejection fraction 35% Coronary artery disease History of PE History of stroke with persistent hemiplegia Moderate bilateral internal carotid artery stenosis Seizure disorder with history of breakthrough seizure Generalized weakness Monitor vital signs Monitor CBC Monitor CMP Continue telemetry monitoring Continue vent management Aggressive bronchopulmonary hygiene Follow-up on blood cultures Follow-up urine culture Currently on vancomycin and Azactam Continue Eliquis 5 mg twice daily for stroke prevention from A-fib. continue seizure medications including Keppra 1500 mg twice daily, Tegretol 200 mg 3 times daily and gabapentin 600 mg 3 times daily. ID following, on recommendation noted from 02/26 Pulmonology following, recommendation noted from 02/26 Labs and medication were reviewed.. Continue same treatment. Continue with sy mptomatic treatment. Resume home medication. Monitor labs and vitals. DVT and GI prophylaxis. Further recommendations as per clinical course of the patient Dictation was produced using [employer] dictation software. please excuse any grammatical, word or spelling errors. Objective - Vital Signs Vital signs: Vital Signs Temp 98.7 F 02/26/25 12:00 Pulse 105 H 02/26/25 13:00 Resp 32 H 02/26/25 13:00 BP 110/67 02/26/25 12:00 Pulse Ox 95 02/26/25 13:00 FiO2 35 02/26/25 12:14 Intake & Output 02/25/25 02/26/25 02/26/25 18:59 06:59 18:59 Intake Total 587.186 7598.095 249.182 Output Total 1420 1415 995 Balance -928.721 -370.905 -745.818 Weight 58.3 kg 55.6 kg Intake: IV 253 619 138 0.9 Sodium Chloride 220 230 120 Arterial Line 33 39 18 Cefepime 2 gm In Sodium 100 Chloride 0.9% 100 ml @ 25 mls/hr IVPB Q8H ADDIE Rx#: [id number] Vancomycin 1,250 mg In 250 Sodium Chloride 0.9% 250 ml @ 125 mls/hr IVPB Q12H ADDIE Rx#:[id number] Intake, IV Titration 238.279 165.095 21.182 Amount Aztreonam 2 gm In Sodium 100 Chloride 0.9% 100 ml @ 33 .3 mls/hr IVPB Q8HR ADDIE Rx#:[id number] Cefepime 2 gm In Sodium 100 Chloride 0.9% 100 ml @ 25 mls/hr IVPB Q8H ADDIE Rx#: [id number] Dexmedetomidine/0.9% NaCl 38.279 75.659 12.272 (Pmx) 400 mcg In Empty Bag 1 bag @ 0.2 MCG/KG/HR 3.03 mls/hr IV .Q24H ADDIE Rx#:[id number] Norepinephrine 8 mg In 89.436 8.91 Sodium Chloride 0.9% 250 ml @ 0.03 MCG/KG/MIN 3. 628 mls/hr IV .Q24H ADDIE Rx#:[id number] Tube Feeding 170 60 Other 90 30 Output: Urine 1420 1415 995 Other: Voiding Method Indwelling Catheter Indwelling Catheter Indwelling Catheter ABP, PAP, CO, CI - Last Documented Arterial Blood Pressure 120/54 - Labs CBC & Chem 7: 02/26/25 04:00 02/26/25 09:20 Labs: Abnormal Lab Results - Last 24 Hours (Table) 02/26/25 02/26/25 02/26/25 Range/Units 04:00 04:00 05:35 WBC 10.84 H (4.50-10.00) 10*3/uL RBC 3.12 L (4.10-5.20) 10*6/uL Hgb 8.7 L (12.0-15.0) g/dL Hct 28.1 L (37.2-46.3) % MCHC 31.0 L (32.0-37.0) g/dL Eosinophils # 1.63 H (0.04-0.35) 10*3/uL ABG pH 7.47 H (7.35-7.45) ABG pO2 110 H (83-108) mmHg ABG HCO3 31 H (21-25) mmol/L ABG Total CO2 32 H (19-24) mmol/L ABG O2 Saturation 98.6 H (94-97) % Hemoglobin 8.9 L (11.4-16.0) gm/dL Potassium 3.4 L (3.5-5.1) mmol/L Carbon Dioxide 31 H (22-30) mmol/L BUN 24 H (7-17) mg/dL Calcium 8.2 L (8.4-10.2) mg/dL Microbiology - Last 24 Hours (Table) 02/23/25 15:35 Blood Culture - Preliminary Blood 02/23/25 04:00 Gram Stain - Final Sputum Sputum Culture - Final Staphylococcus aureus
[2025-02-26 15:59] LABS: ABG HCO3 34 mmol/L (21-25); ABG PCO2 44 mmHg (35-45); ABG PH 7.51 (7.35-7.45); ABG TCO2 36 mmol/L (19-24)
[2025-02-26 16:01] LABS: ABG PO2 52 mmHg (83-108); Allen Test Performed? no
[2025-02-26] MEDS: FUROSEMIDE 10 MG/ML 2 ML VIAL IV ONE (17:11)
[2025-02-26] MEDS: HYDROmorphone 1 MG/ML 1 ML SYRINGE IVP PRN (17:34)
--- NOTE | 2025-02-26 22:35 | P.PN ---
Subjective Progress Note Date: 02/26/25 Principal diagnosis: Reason for follow-up is multiple skin lesion question of cellulitis and multiple antibiotic allergies Patient is a 54-year-old female with a past medical history significant for PE seizure disorder coronary artery disease has been diagnosed with bullous pemphigoid patient has been brought into the hospital concerning for weakness patient did have multiple skin lesions concerning for cellulitis prompting this consultation. On today's evaluation that is 02/26/2025, Patient is afebrile this morning patient has been extubated and is currently on BiPAP the patient remains to be lethargic unable to provide any history no vomiting or diarrhea has been reported. The patient white count is 10.84 creatinine 0.70 blood culture 02/23/2025 has been negative Objective - Vital Signs Vital signs: Vital Signs Temp 98.1 F 02/26/25 08:00 Pulse 101 H 02/26/25 11:00 Resp 21 02/26/25 11:00 BP 122/66 02/26/25 11:00 Pulse Ox 97 02/26/25 11:00 FiO2 35 02/26/25 11:00 Intake & Output 02/25/25 02/26/25 02/26/25 18:59 06:59 18:59 Intake Total 267.968 8914.095 223.182 Output Total 1420 1415 880 Balance -928.721 -370.905 -656.818 Weight 58.3 kg 55.6 kg Intake: IV 253 619 92 0.9 Sodium Chloride 220 230 80 Arterial Line 33 39 12 Cefepime 2 gm In Sodium 100 Chloride 0.9% 100 ml @ 25 mls/hr IVPB Q8H [facility] Rx#: [id number] Vancomycin 1,250 mg In 250 Sodium Chloride 0.9% 250 ml @ 125 mls/hr IVPB Q12H [facility] Rx#:[id number] Intake, IV Titration 238.279 165.095 21.182 Amount Aztreonam 2 gm In Sodium 100 Chloride 0.9% 100 ml @ 33 .3 mls/hr IVPB Q8HR [facility] Rx#:[id number] Cefepime 2 gm In Sodium 100 Chloride 0.9% 100 ml @ 25 mls/hr IVPB Q8H [facility] Rx#: [id number] Dexmedetomidine/0.9% NaCl 38.279 75.659 12.272 (Pmx) 400 mcg In Empty Bag 1 bag @ 0.2 MCG/KG/HR 3.03 mls/hr IV .Q24H [facility] Rx#:[id number] Norepinephrine 8 mg In 89.436 8.91 Sodium Chloride 0.9% 250 ml @ 0.03 MCG/KG/MIN 3. 628 mls/hr IV .Q24H [facility] Rx#:[id number] Tube Feeding 170 80 Other 90 30 Output: Urine 1420 1415 880 Other: Voiding Method Indwelling Catheter Indwelling Catheter Indwelling Catheter ABP, PAP, CO, CI - Last Documented Arterial Blood Pressure 125/56 - Exam GENERAL DESCRIPTION: Middle-age female lying in bed in no distress RESPIRATORY SYSTEM: Unlabored breathing , decreased breath sounds at bases HEART: S1 S2 regular rate and rhythm , ABDOMEN: Soft , no tenderness SKIN: Multiple ulcerated lesions but no drainage - Labs CBC & Chem 7: 02/26/25 04:00 02/26/25 09:20 Labs: Abnormal Lab Results - Last 24 Hours (Table) 02/25/25 02/26/25 02/26/25 Range/Units 12:22 04:00 04:00 WBC 10.84 H (4.50-10.00) 10*3/uL RBC 3.12 L (4.10-5.20) 10*6/uL Hgb 8.7 L (12.0-15.0) g/dL Hct 28.1 L (37.2-46.3) % MCHC 31.0 L (32.0-37.0) g/dL Eosinophils # 1.63 H (0.04-0.35) 10*3/uL ABG pH 7.49 H (7.35-7.45) ABG pO2 126 H (83-108) mmHg ABG HCO3 33 H (21-25) mmol/L ABG Total CO2 34 H (19-24) mmol/L ABG O2 Saturation 98.8 H (94-97) % Hemoglobin 9.1 L (11.4-16.0) gm/dL Potassium 3.4 L (3.5-5.1) mmol/L Carbon Dioxide 31 H (22-30) mmol/L BUN 24 H (7-17) mg/dL Calcium 8.2 L (8.4-10.2) mg/dL 02/26/25 Range/Units 05:35 WBC (4.50-10.00) 10*3/uL RBC (4.10-5.20) 10*6/uL Hgb (12.0-15.0) g/dL Hct (37.2-46.3) % MCHC (32.0-37.0) g/dL Eosinophils # (0.04-0.35) 10*3/uL ABG pH 7.47 H (7.35-7.45) ABG pO2 110 H (83-108) mmHg ABG HCO3 31 H (21-25) mmol/L ABG Total CO2 32 H (19-24) mmol/L ABG O2 Saturation 98.6 H (94-97) % Hemoglobin 8.9 L (11.4-16.0) gm/dL Potassium (3.5-5.1) mmol/L Carbon Dioxide (22-30) mmol/L BUN (7-17) mg/dL Calcium (8.4-10.2) mg/dL Microbiology - Last 24 Hours (Table) 02/23/25 15:35 Blood Culture - Preliminary Blood 02/23/25 04:00 Gram Stain - Final Sputum Sputum Culture - Final Staphylococcus aureus Assessment and Plan (1) Skin ulcer of multiple sites Current Visit: Yes Status: Acute Code(s): L98.499 - NON-PRESSURE CHRONIC ULCER OF SKIN OF SITES W UNSP SEVERITY SNOMED Code(s): 66246085 (2) Bullous pemphigoid Current Visit: Yes Status: Acute Code(s): L12.0 - BULLOUS PEMPHIGOID SNOMED Code(s): 35682195 (3) Allergy to multiple antibiotics Current Visit: No Status: Acute Code(s): Z88.1 - ALLERGY STATUS TO OTHER A NTIBIOTIC AGENTS SNOMED Code(s): 889599480 Plan: 1 Patient presented to hospital with fall due to generalized weakness which could be related to possible prerenal as the patient and daughter mention air conditioning for the last few days which has been really hot and the patient will drinking enough fluid patient did have multiple skin lesions but there is no slough tissue no surrounding redness patient not running any fever no elevated white count clinically doubt any active cellulitis 2-multiple antibiotic allergies that would limit the number of antibiotics safe to use 3-patient did have a worsening of her clinical condition become less responsive hypertension requiring intubation intubation by ICU chest x-ray with concern for multifocal opacity concerning for pneumonia sputum is growing MSSA 4urine culture positive for drug-resistant E. coli sensitive to ceftriaxone 5the patient afebrile white count has normalized patient is currently covered with the cefepime, vancomycin has been discontinued as no MRSA Dictation was produced using [employer] dictation software. please excuse any grammatical, word or spelling errors. Time with Patient: Less than 30
[2025-02-26 23:49] LABS: Glucose,Whole Blood 96 mg/dL (70-110)
[2025-02-27 05:30] LABS: Basophils % (A) 0.3 %; Eosinophils % (A) 7.4 %; HCT 31.5 % (37.2-46.3); HGB 9.6 g/dL (12.0-15.0); Lymphocytes % (A) 5.6 %; MCH 27.6 pg (27.0-32.0); MCHC 30.5 g/dL (32.0-37.0); MCV 90.5 fL (80.0-97.0); Monocytes % (A) 4.1 %; Neutrophils % (A) 82.3 %; Platelet Count 364 10*3/uL (140-440); RBC 3.48 10*6/uL (4.10-5.20); RDW 16.8 % (11.5-14.5); WBC 14.78 10*3/uL (4.50-10.00)
[2025-02-27 05:31] LABS: Basophils # (A) 0.04 10*3/uL (0.00-0.10); Eosinophils # (A) 1.10 10*3/uL (0.04-0.35); Lymphocytes # (A) 0.83 10*3/uL (0.90-5.00); Monocytes # (A) 0.60 10*3/uL (0.20-1.00); Neutrophils # (A) 12.16 10*3/uL (1.80-7.70)
[2025-02-27 05:40] LABS: Glucose,Whole Blood 100 mg/dL (70-110)
[2025-02-27 05:56] LABS: ABG HCO3 32 mmol/L (21-25); ABG PCO2 39 mmHg (35-45); ABG PH 7.53 (7.35-7.45); ABG TCO2 34 mmol/L (19-24); Allen Test Performed? Yes
[2025-02-27 05:56] LABS: African American GFR (CKD) >90 (>60 ml/min/1.73 sqM); Anion Gap 13 mmol/L; Blood Urea Nitrogen 24 mg/dL (7-17); Calcium 8.8 mg/dL (8.4-10.2); Carbon Dioxide 30 mmol/L (22-30); Chloride 102 mmol/L (98-107); Glucose 95 mg/dL (74-99); Non-African American GFR(CKD) >90 (>60 ml/min/1.73 sqM); Potassium 3.8 mmol/L (3.5-5.1); Sodium 145 mmol/L (137-145)
[2025-02-27 06:26] LABS: ABG PO2 34 mmHg (83-108)
--- NOTE | 2025-02-27 06:48 | XR ---
EXAMINATION TYPE: XR chest 1V portable DATE OF EXAM: 02/27/2025 6:31 AM COMPARISON: Multiple radiographs, with the most recent on 02/26/2025 TECHNIQUE: XR chest 1V portable Portable AP radiograph of the chest. CLINICAL INDICATION:Female, 54 years old with history of intubation; FINDINGS: Patient is rotated which limits evaluation. Lungs/Pleura: No pneumothorax. The right lung is clear. Worsening near complete opacification of the left hemithorax. Pulmonary vascularity: Unremarkable. Heart/mediastinum: Cardiomediastinal silhouette is enlarged and stable. Single-lead cardiac conductio n device overlying the left hemithorax with lead projecting over the right ventricle. Musculoskeletal: No acute osseous pathology. Other findings: None Lines/Tubes: Endotracheal tube with distal tip 1.4 cm above the polo Nasogastric tube with its distal tip and side-port projecting under the diaphragm. Stable left IJ approach central venous catheter with distal tip at the superior cavoatrial junction.. IMPRESSION: 1. Appropriate position of support lines and tubes. 2. Worsening near complete opacification of the left hemithorax likely representing combination of a telectasis, consolidation, and pleural effusion. [facility], , 02/27/2025 6:45 AM
--- NOTE | 2025-02-27 06:51 | XR ---
EXAMINATION TYPE: XR chest 1V portable DATE OF EXAM: 02/27/2025 6:34 AM COMPARISON: Multiple radiographs, with the most recent on 02/26/2025 TECHNIQUE: XR chest 1V portable Portable AP radiograph of the chest. CLINICAL INDICATION:Female, 54 years old with history of intubation; FINDINGS: Patient is rotated which limits evaluation. Lungs/Pleura: No pneumothorax. The right lung is clear. Slightly improved aeration of the left upper lung from prior exam. Pulmonary vascularity: Unremarkable. Heart/mediastinum: Cardiomediastinal silhouette is partially obscured due to overlying and adjacent o pacities. Single-lead cardiac conduction device overlying the left hemithorax with lead projecting ov er the right ventricle. Musculoskeletal: No acute osseous pathology. Other findings: None Lines/Tubes: Endotracheal tube with distal tip 3.4 cm above the polo Nasogastric tube with its distal tip and side-port projecting under the diaphragm. Stable left IJ approach central venous catheter with distal tip at the superior cavoatrial junction.. IMPRESSION: 1. Appropriate position of support lines and tubes. 2. Slightly improved aeration of the left upper lung from prior exam. Left hemithorax opacification l ikely represents a combination of atelectasis, consolidation, and pleural effusion. [facility], , 02/27/2025 6:48 AM
--- NOTE | 2025-02-27 06:53 | P.PN ---
Subjective Progress Note Date: 02/27/25 The patient was seen this morning. She continues to be intubated on mechanical ventilation she continues to be hemodynamically stable requiring norepinephrine but she is requiring less norepinephrine compared to before. Urine output continues to be marginal. She is on Lasix IV at 40 mg twice daily. She is not on any cardiomyopathy medications because of the hemodynamical instability and requiring norepinephrine. The echo showed an EF between 25 to 30%. The physical examination is remarkable for intubated patient on mechanical ventilation with diminished breathing sounds bilaterally and regular rate and rhythm. February 26, 2025 The patient was seen and evaluated this morning. She continues to be intubated. She is still on Lasix IV. The pressure still low requiring norepinephrine but we are coming down with a dose. The chest x-ray was reviewed this morning and seems to be overall better in terms of fluid overload. We potentially can come down with a dose of IV Lasix and possible wean the patient off from norepinephrine. The physical examination is remarkable for regular rhythm with diminished breathing sounds bilaterally and mild bilateral lower extremity edema and skin changes noted. She is on oral anticoagulation. February 27, 2025 The patient was seen and evaluated this morning. She was extubated yesterday and then she reintubated again because she developed hypoxic respiratory failure. The chest x-ray showed complete opacification of the left lung. She is in process of having possible bronchoscopy. Hemodynamically she remains unstable requiring small dose of norepinephrine. The physical examination is remarkable for regular rate and rhythm with a systolic murmur at the right and left upper sternal border and wheezing was noted also. Assessment Acute hypoxic respiratory failure Severe cardiomyopathy Heart failure with reduced ejection fraction Paroxysmal atrial fibrillation Sinus rhythm at this point Multiple comorbid conditions including anemia Plan Continue the current medical regimen Continue oral anticoagulation and amiodarone Continue monitor the kidney function and electrolytes and hemoglobin Consider restarting the patient's back on cardiomyopathy medication once she is off norepinephrine Possible bronchoscopy later on today Follow-up with the patient Objective - Vital Signs Vital signs: Vital Signs Temp 99.7 F H 02/27/25 04:00 Pulse 96 02/27/25 05:00 Resp 19 02/27/25 05:00 BP 116/87 02/26/25 15:00 Pulse Ox 99 02/27/25 05:00 FiO2 100 02/27/25 06:31 Intake & Output 02/26/25 02/26/25 02/27/25 06:59 18:59 06:59 Intake Total 1044.095 366.505 459.649 Output Total 1415 1545 725 Balance -370.905 -1178.495 -265.351 Weight 55.6 kg 55.2 kg Intake: IV 619 253 353 0.9 Sodium Chloride 230 220 220 Arterial Line 39 33 33 Cefepime 2 gm In Sodium 100 100 Chloride 0.9% 100 ml @ 25 mls/hr IVPB Q8H [facility] Rx#: [id number] Vancomycin 1,250 mg In 250 Sodium Chloride 0.9% 250 ml @ 125 mls/hr IVPB Q12H [facility] Rx#:[id number] Intake, IV Titration 165.095 23.505 106.649 Amount Dexmedetomidine/0.9% NaCl 75.659 14.595 102.743 (Pmx) 400 mcg In Empty Bag 1 bag @ 0.2 MCG/KG/HR 3.03 mls/hr IV .Q24H [facility] Rx#:[id number] Norepinephrine 8 mg In 89.436 8.91 Sodium Chloride 0.9% 250 ml @ 0.03 MCG/KG/MIN 3. 628 mls/hr IV .Q24H [facility] Rx#:[id number] propofoL 1,000 mg In 3.906 Empty Bag 1 bag @ 15 MCG/ KG/MIN 5.625 mls/hr IV . [id number] [facility] Rx#:[id number] Tube Feeding 170 60 Other 90 30 Output: Urine 1415 1545 725 Other: Voiding Method Indwelling Catheter Indwelling Catheter Indwelling Catheter ABP, PAP, CO, CI - Last Documented Arterial Blood Pressure 130/54 - Labs CBC & Chem 7: 02/27/25 05:10 02/27/25 05:10 Labs: Abnormal Lab Results - Last 24 Hours (Table) 02/26/25 02/27/25 02/27/25 Range/Units 15:53 05:10 05:10 WBC 14.78 H (4.50-10.00) 10*3/uL RBC 3.48 L (4.10-5.20) 10*6/uL Hgb 9.6 L (12.0-15.0) g/dL Hct 31.5 L (37.2-46.3) % MCHC 30.5 L (32.0-37.0) g/dL Immature Gran # 0.05 H (0.00-0.04) 10*3/uL Neutrophils # 12.16 H (1.80-7.70) 10*3/uL Lymphocytes # 0.83 L (0.90-5.00) 10*3/uL Eosinophils # 1.10 H (0.04-0.35) 10*3/uL ABG pH 7.51 H (7.35-7.45) ABG pO2 52 L* (83-108) mmHg ABG HCO3 34 H (21-25) mmol/L ABG Total CO2 36 H (19-24) mmol/L ABG O2 Saturation 85.2 L (94-97) % Hemoglobin 9.6 L (11.4-16.0) gm/dL BUN 24 H (7-17) mg/dL 02/27/25 Range/Units 05:54 WBC (4.50-10.00) 10*3/uL RBC (4.10-5.20) 10*6/uL Hgb (12.0-15.0) g/dL Hct (37.2-46.3) % MCHC (32.0-37.0) g/dL Immature Gran # (0.00-0.04) 10*3/uL Neutrophils # (1.80-7.70) 10*3/uL Lymphocytes # (0.90-5.00) 10*3/uL Eosinophils # (0.04-0.35) 10*3/uL ABG pH 7.53 H (7.35-7.45) ABG pO2 34 L* (83-108) mmHg ABG HCO3 32 H (21-25) mmol/L ABG Total CO2 34 H (19-24) mmol/L ABG O2 Saturation 63.6 L (94-97) % Hemoglobin 10.1 L (11.4-16.0) gm/dL BUN (7-17) mg/dL Microbiology - Last 24 Hours (Table) 02/23/25 15:35 Blood Culture - Preliminary Blood
[2025-02-27 07:06] LABS: ABG HCO3 32 mmol/L (21-25); ABG PCO2 43 mmHg (35-45); ABG PH 7.49 (7.35-7.45); ABG TCO2 34 mmol/L (19-24); Allen Test Performed? Yes
[2025-02-27 07:08] LABS: ABG PO2 38 mmHg (83-108)
[2025-02-27] MEDS: CISATRACURIUM 2 MG/ML 5 ML VIAL IV ONE (07:33)
--- NOTE | 2025-02-27 07:43 | XR ---
EXAMINATION TYPE: XR chest 1V portable DATE OF EXAM: 02/27/2025 5:36 AM COMPARISON: Multiple radiographs, with the most recent on 02/27/25 TECHNIQUE: XR chest 1V portable Portable AP radiograph of the chest. CLINICAL INDICATION:Female, 54 years old with history of Mechanical ventilation; FINDINGS: Patient is rotated which limits evaluation. Lungs/Pleura: No pneumothorax. Both lungs are clear. Medial right lower lung atelectatic change. No s izable pleural effusion. Pulmonary vascularity: Unremarkable. Heart/mediastinum: Cardiomediastinal silhouette is enlarged and stable. Single-lead cardiac conductio n device overlying the left hemithorax with lead projecting over the right ventricle. Musculoskeletal: No acute osseous pathology. Other findings: None Lines/Tubes: Stable left IJ approach central venous catheter with distal tip at the superior cavoatrial junction.. Interval removal of enteric tube and endotracheal tube from prior exam. IMPRESSION: 1. Stable left IJ approach central venous catheter. Interval removal of enteric tube and endotrachea l tube from prior exam. 2. Medial right lower lung atelectatic change. [facility], , 02/27/2025 7:41 AM
--- NOTE | 2025-02-27 07:51 | XR ---
EXAMINATION TYPE: XR chest 1V portable DATE OF EXAM: 02/27/2025 7:45 AM COMPARISON: Multiple radiographs, with the most recent on 02/27/2025 TECHNIQUE: XR chest 1V portable Portable AP radiograph of the chest. CLINICAL INDICATION:Female, 54 years old with history of follow up post bronchoscopy; mucous plugs; FINDINGS: Lungs/Pleura: Medial right lower lung subsegmental atelectasis. No pneumothorax. No sizable pleural e ffusion. Significantly improved aeration of the left lung status post bronchoscopy. Pulmonary vascularity: Unremarkable. Heart/mediastinum: Cardiomediastinal silhouette is enlarged and stable. Single-lead cardiac conductio n device overlying the left hemithorax with lead projecting over the right ventricle. Musculoskeletal: No acute osseous pathology. Other findings: None Lines/Tubes: Endotracheal tube with distal tip 6.4 cm above the polo Nasogastric tube with its distal tip and side-port projecting under the diaphragm. Stable left IJ approach central venous catheter with distal tip at the superior cavoatrial junction. IMPRESSION: 1. Significantly improved aeration of the left lung status post bronchoscopy. 2. Stable support lines and tubes. [facility], , 02/27/2025 7:49 AM
[2025-02-27 10:53] LABS: ABG HCO3 33 mmol/L (21-25); ABG PCO2 48 mmHg (35-45); ABG PH 7.45 (7.35-7.45); ABG PO2 65 mmHg (83-108); ABG TCO2 35 mmol/L (19-24)
[2025-02-27 10:55] LABS: Allen Test Performed? no
--- NOTE | 2025-02-27 12:17 | P.PN ---
Subjective Progress Note Date: 02/27/25 Principal diagnosis: Reason for follow-up is multiple skin lesion question of cellulitis and multiple antibiotic allergies Patient is a 54-year-old female with a past medical history significant for PE seizure disorder coronary artery disease has been diagnosed with bullous pemphigoid patient has been brought into the hospital concerning for weakness patient did have multiple skin lesions concerning for cellulitis prompting this consultation. On today's evaluation that is 02/27/2025,the patient did have worsening of respiratory status ended up getting intubated patient also spiked a fever of 101.7 degree for Last night had temperature 100.4 F this morning patient has been bronched by pulmonary this morning noted to have a mucous plugging patient is currently on a 500% FiO2 requiring low-dose pressor. Patient white count is 14.78 creatinine 0.68 blood culture has been negative Objective - Vital Signs Vital signs: Vital Signs Temp 100.4 F H 02/27/25 08:00 Pulse 108 H 02/27/25 12:00 Resp 24 02/27/25 12:00 BP 105/62 02/27/25 12:00 Pulse Ox 94 L 02/27/25 12:00 FiO2 100 02/27/25 11:56 Intake & Output 02/26/25 02/27/25 02/27/25 18:59 06:59 18:59 Intake Total 366.505 485.305 238.400 Output Total 1545 725 480 Balance -1178.495 -239.695 -241.600 Weight 55.2 kg Intake: IV 253 376 138 0.9 Sodium Chloride 220 240 120 Arterial Line 33 36 18 Cefepime 2 gm In Sodium 100 Chloride 0.9% 100 ml @ 25 mls/hr IVPB Q8H [facility] Rx#: [id number] Intake, IV Titration 23.505 109.305 100.400 Amount Dexmedetomidine/0.9% NaCl 14.595 102.743 (Pmx) 400 mcg In Empty Bag 1 bag @ 0.2 MCG/KG/HR 3.03 mls/hr IV .Q24H [facility] Rx#:[id number] Norepinephrine 8 mg In 8.91 0 5.744 Sodium Chloride 0.9% 250 ml @ 0.03 MCG/KG/MIN 3. 628 mls/hr IV .Q24H [facility] Rx#:[id number] propofoL 1,000 mg In 6.562 94.656 Empty Bag 1 bag @ 15 MCG/ KG/MIN 5.625 mls/hr IV . [id number] [facility] Rx#:[id number] Tube Feeding 60 Other 30 Output: Urine 1545 725 480 Other: Voiding Method Indwelling Catheter Indwelling Catheter Indwelling Catheter ABP, PAP, CO, CI - Last Documented Arterial Blood Pressure 106/51 - Exam GENERAL DESCRIPTION: Middle-age female intubated on the vent RESPIRATORY SYSTEM: Unlabored breathing , decreased breath sounds at bases HEART: S1 S2 regular rate and rhythm , ABDOMEN: Soft , no tenderness SKIN: Multiple ulcerated lesions but no drainage - Labs CBC & Chem 7: 02/27/25 05:10 02/27/25 05:10 Labs: Abnormal Lab Results - Last 24 Hours (Table) 02/26/25 02/27/25 02/27/25 Range/Units 15:53 05:10 05:10 WBC 14.78 H (4.50-10.00) 10*3/uL RBC 3.48 L (4.10-5.20) 10*6/uL Hgb 9.6 L (12.0-15.0) g/dL Hct 31.5 L (37.2-46.3) % MCHC 30.5 L (32.0-37.0) g/dL Immature Gran # 0.05 H (0.00-0.04) 10*3/uL Neutrophils # 12.16 H (1.80-7.70) 10*3/uL Lymphocytes # 0.83 L (0.90-5.00) 10*3/uL Eosinophils # 1.10 H (0.04-0.35) 10*3/uL ABG pH 7.51 H (7.35-7.45) ABG pCO2 (35-45) mmHg ABG pO2 52 L* (83-108) mmHg ABG HCO3 34 H (21-25) mmol/L ABG Total CO2 36 H (19-24) mmol/L ABG O2 Saturation 85.2 L (94-97) % Hemoglobin 9.6 L (11.4-16.0) gm/dL BUN 24 H (7-17) mg/dL 02/27/25 02/27/25 02/27/25 Range/Units 05:54 06:54 10:48 WBC (4.50-10.00) 10*3/uL RBC (4.10-5.20) 10*6/uL Hgb (12.0-15.0) g/dL Hct (37.2-46.3) % MCHC (32.0-37.0) g/dL Immature Gran # (0.00-0.04) 10*3/uL Neutrophils # (1.80-7.70) 10*3/uL Lymphocytes # (0.90-5.00) 10*3/uL Eosinophils # (0.04-0.35) 10*3/uL ABG pH 7.53 H 7.49 H (7.35-7.45) ABG pCO2 48 H (35-45) mmHg ABG pO2 34 L* 38 L* 65 L (83-108) mmHg ABG HCO3 32 H 32 H 33 H (21-25) mmol/L ABG Total CO2 34 H 34 H 35 H (19-24) mmol/L ABG O2 Saturation 63.6 L 67.8 L 91.1 L (94-97) % Hemoglobin 10.1 L 10.2 L 10.0 L (11.4-16.0) gm/dL BUN (7-17) mg/dL Microbiology - Last 24 Hours (Table) 02/23/25 15:35 Blood Culture - Preliminary Blood Assessment and Plan (1) Skin ulcer of multiple sites Current Visit: Yes Status: Acute Code(s): L98.499 - NON-PRESSURE CHRONIC ULCER OF SKIN OF SITES W UNSP SEVERITY SNOMED Code(s): 21864864 (2) Bullous pemphigoid Current Visit: Yes Status: Acute Code(s): L12.0 - BULLOUS PEMPHIGOID SNOMED Code(s): 30042698 (3) Allergy to multiple antibiotics Current Visit: No Status: Acute Code(s): Z88.1 - ALLERGY STATUS TO OTHER ANTIBIOTIC AGENTS SNOMED Code(s): 347829569 Plan: 1 Patient presented to hospital with fall due to generalized weakness which could be related to possible prerenal as the patient and daughter mention air conditioning for the last few days which has been really hot and the patient will drinking enough fluid patient did have multiple skin lesions but there is no slough tissue no surrounding redness patient not running any fever no elevated white count clinically doubt any active cellulitis 2-multiple antibiotic allergies that would limit the number of antibiotics safe to use 3-patient urine culture positive for drug-resistant E. coli sensitive to ceftriaxone 4patient did have worsening of respiratory status requiring reintubation bronchoscopy concerning for mucous plugging BAL culture will be followed for now continue with the cefepime and monitor clinical course closely Dictation was produced using [employer] dictation software. please excuse any grammatical, word or spelling errors. Time with Patient: Less than 30
--- NOTE | 2025-02-27 13:44 | OP ---
OPERATIVE REPORT DATE OF SERVICE : PROCEDURE PERFORMED: Placement of a right brachial arterial line. PREOPERATIVE DIAGNOSIS: Acute hypoxic respiratory failure requiring intubation and mechanical ventilation. POSTOPERATIVE DIAGNOSIS: Acute hypoxic respiratory failure requiring intubation and mechanical ventilation. ANESTHESIA USED: None deployed. PROCEDURE: The right brachial region was prepared in a sterile fashion and drapes were applied. The patient was placed in the supine position. The right brachial artery was palpated easily and cannulated easily. A guidewire was placed. A Cook's catheter was inserted over the guidewire, and the guidewire was removed. Good blood flow, good waveform, no complications. Line was secured using 3.0 silk sutures. MMODL / IJN: [id number] /
--- NOTE | 2025-02-27 13:53 | OP ---
OPERATIVE REPORT DATE OF SERVICE : OPERATIVE REPORT: Bronchoscopy, bronchoalveolar lavage of the left upper lobe, and suctioning of mucus plug in the left upper lobe bronchus. PREOPERATIVE DIAGNOSIS: Acute hypoxic respiratory failure with opacification of the left lung, highly consistent with mucus plugging. POSTOPERATIVE DIAGNOSIS: Mucus plug completely occluding the left upper lobe bronchus. ANESTHESIA USED: The patient was already sedated. She was already on propofol and she received 10 mg of Nimbex prior to the procedure. The procedure was done on emergency basis. DESCRIPTION OF PROCEDURE: The patient was placed in the supine position, she was already on mechanical ventilation, an adapter was applied to the endotracheal tube. Then, the bronchoscope was advanced down to the distal trachea, examination was done of the left mainstem bronchus, seem to be intact, however, as I entered the left upper lobe, there was a large mucus plug that completely occluding the left upper lobe bronchus. Multiple attempts were made to suction it, then I was able to break it down with saline lavages and washing until the mucus plug was completely suctioned out of the left upper lobe bronchus. Examination of the rest of the lung was unremarkable, no evidence of any other mucus plugging and there was no evidence of purulent secretions. Procedure was well tolerated, postoperatively chest x-ray showed significant improvement in the opacified left lung. No complications. MMODL / IJN: [id number] /
--- NOTE | 2025-02-27 13:59 | P.PN ---
Subjective Progress Note Date: 02/27/25 This is a pleasant 54 years old female who was recently diagnosed with bullous pemphigoid 3 months ago when she is sent from this facility to [facility], she had a biopsy followed by treatment with doxycycline and taper prednisone over 3 weeks. Also she has extensive long history of CHF and seizure disorder. She was previously in the ICU for severe sepsis. Now presents because of generalized weakness. Patient states she went and fell today while she was trying to get up to go to the restroom she found a green chair on her way she was too weak to move with so she fell on her buttocks she could not get up as usual so she called the family who helped her and called EMS. Patient stayed on the floor for about 25 minutes as she explains. Denies any abdominal pain vomiting or diarrhea Denies dysuria urgency but states she has not been since yesterday and she has been drinking a lot of water for this reason Denies chest pain or dyspnea or coughing. No headache dizziness She is a known case of previous stroke and severe left hemiparesis, patient states it is worse than before this time. Also there was some concern from some slurred speech but no double vision. Patient complains from feeling swollen in her legs She has extensive bullous disease, majority of them are ruptured throughout her trunk and extremities and there is surrounding with erythema more extensive edema in the lower extremities bilaterally. However there is no purulent discharge. No significant tenderness in this erythematous area Her sanitor Dr. Noriega neurologist is Dr. quiroz Patient with no fever blood pressure slightly on the low side but patient is symptomatic Blood pressure is fluctuation slightly on the low side Hemoglobin 10 WBC normal 8.6. Rest of labs unremarkable including electrolytes proBNP 1740 CT of the head and neck showing moderate stenosis of bilateral internal carotid arteries CT of the brain showing remote right large MCA territory infarct with encephalomalacia and remote left frontal infarct with encephalomalacia and bilateral cerebellar encephalomalacia Chest x-ray showing mild interstitial prominence may be bronchitis rule out mild pulmonary vascular congestion 02/21 Patient awake alert She looks hypovolemic with positive orthostatic vitals, yesterday we will give her a bolus of 500 cc. Albumin dropped from 2.7 down to 2.0. Patient has slightly worse leg swelling. She has multiple friable and ruptured bullae on the trunk and extremities with mild erythema surrounding these bullae especially in the lower extremities. These are chronic for the last 3 months diagnosed with bullous pemphigoid. Patient states that she took the steroids and that did not help much. She denies chest pain or dyspnea. No abdominal pain or vomiting. Patient currently not on antibiotics per ID team recommendation to keep monitoring while off antibiotics. No fever. Patient was on doxycycline for her bullous lesions at [facility] not sure if she needed for now, keep holding doxycycline. Cardiology is going to evaluate the patient. Neurology service also on the case however patient has chronic hemiplegia, and this morning she is not sure if it is left hemiplegia is at baseline or worse, however is severe and does not make much difference. No slurred speech no blurry vision. 02/22 Patient is looks tired lethargic Kirlin in bed and was shivering in the morning and developing fever also she is tachycardic and blood pressure is soft No chest pain or abdominal pain Still has erythema and swelling of both lower extremities suspected secondary to cellulitis, MRSA suspected and currently she is on IV vancomycin with infectious disease team recommendation She has good urine output and creatinine within the reference range. We give her a bolus of albumin given her hypoalbuminemia also if blood pressure remains low may consider a bolus of normal saline later on Midodrine was prescribed on admission as needed for hypotension but was not given by staff despite low blood pressure therefore we are going to switch it to standing dose Monitor labs and electrolytes and vitals closely 02/23 Patient yesterday was found unresponsive on the floor and there was foam in her mouth A team was called Patient got intubated and placed on mechanical ventilation transferred to the ICU. Patient currently intubated and sedated. Yesterday patient was hypotensive and tachycardic and altered mental status. This morning required Levophed 02/23 Patient remains in the ICU intubated and sedated, PEEP is 5 improved Female family member at bedside. Patient earlier was able to work She opened eyes and tried to communicate and she could recognize the family member, she was anxious as per family Patient required small dose of pressors earlier Continue on same antibiotics as per infectious disease team Off IV fluid Echocardiogram showed ejection fraction of 25 to 30% Increased left ventricular mass with very severe LV dysfunction Sputum culture growing Staph aureus pansensitive he Patient's rash of the lower extremity is significantly improved Discussed the case with pulmonary team 02/25. Patient seen and examined. Patient continues to be intubated 02/26. Patient seen and examined. Labs done this morning showed WBC 10.84, hemoglobin 8.7, sodium 141, potassium 3.4, BUN 24, creatinine 0.67, calcium 8.2. Currently on CPAP, planning for patient for extubation today 02/27. Patient seen and examined. Patient was extubated last evening but this morning when he respiratory distress and had to be reintubated. Patient also spiking fever this morning. Patient was bronched this morning and found noted to have mucous plugging REVIEW OF SYSTEMS: Review of system cannot be obtained patient currently debated PHYSICAL EXAMINATION: GENERAL: The patient is intubated HEENT: Pupils are round and equally reacting to light. EOMI. No scleral icterus. No conjunctival pallor. Normocephalic, atraumatic. No pharyngeal erythema. No thyromegaly. CARDIOVASCULAR: S1 and S2 present. No murmurs, rubs, or gallops. PULMONARY: Chest is clear to auscultation, no wheezing or crackles. ABDOMEN: Soft, nontender, nondistended, normoactive bowel sounds. No palpable organomegaly. MUSCULOSKELETAL: No joint swelling or deformity. EXTREMITIES: No cyanosis, clubbing, or pedal edema. NEUROLOGICAL: Gross neurological examination did not reveal any focal deficits. SKIN: Multiple areas of skin ulceration and breakdown seen Assessment and plan Acute hypoxic respiratory failure Acute systolic heart failure Severe sepsis Bilateral lower extremity cellulitis thought secondary to MRSA Hypotension secondary to above Worsening weakness on the left side associated with fall without syncope and transient slurred speech and some swallowing difficulty, rule out new stroke or worsening stroke Bullous pemphigoid with multiple eroded and friable bullae throughout the trunk and extremities with surrounding erythema on doxycycline and prednisone previously Cardiomyopathy with ejection fraction 35% Coronary artery disease History of PE History of stroke with persistent hemiplegia Moderate bilateral internal carotid artery stenosis Seizure disorder with history of breakthrough seizure Generalized weakness Monitor vital signs Monitor CBC Monitor CMP Continue telemetry monitoring Continue vent management Aggressive bronchopulmonary hygiene Follow-up on blood cultures Follow-up urine culture Currently on vancomycin and Azactam Continue Eliquis 5 mg twice daily for stroke prevention from A-fib. continue seizure medications including Keppra 1500 mg twice daily, Tegretol 200 mg 3 times daily and gabapentin 600 mg 3 times daily. ID following, on recommendation noted from 02/27 Pulmonology following, recommendation noted from 7/2 Labs and medication were reviewed.. Continue same treatment. Continue with symptomatic treatment. Resume home medication. Monitor labs and vitals. DVT and GI prophylaxis. Further recommendations as per clinical course of the patient Dictation was produced using [employer] dictation software. please excuse any gramm atical, word or spelling errors. Objective - Vital Signs Vital signs: Vital Signs Temp 100.4 F H 02/27/25 08:00 Pulse 105 H 02/27/25 13:00 Resp 27 H 02/27/25 13:00 BP 107/69 02/27/25 13:00 Pulse Ox 94 L 02/27/25 13:00 FiO2 100 02/27/25 11:56 Intake & Output 02/26/25 02/27/25 02/27/25 18:59 06:59 18:59 Intake Total 366.505 485.305 271.400 Output Total 1545 725 540 Balance -1178.495 -239.695 -268.600 Weight 55.2 kg Intake: IV 253 376 161 0.9 Sodium Chloride 220 240 140 Arterial Line 33 36 21 Cefepime 2 gm In Sodium 100 Chloride 0.9% 100 ml @ 25 mls/hr IVPB Q8H [facility] Rx#: [id number] Intake, IV Titration 23.505 109.305 100.400 Amount Dexmedetomidine/0.9% NaCl 14.595 102.743 (Pmx) 400 mcg In Empty Bag 1 bag @ 0.2 MCG/KG/HR 3.03 mls/hr IV .Q24H [facility] Rx#:[id number] Norepinephrine 8 mg In 8.91 0 5.744 Sodium Chloride 0.9% 250 ml @ 0.03 MCG/KG/MIN 3. 628 mls/hr IV .Q24H [facility] Rx#:[id number] propofoL 1,000 mg In 6.562 94.656 Empty Bag 1 bag @ 15 MCG/ KG/MIN 5.625 mls/hr IV . [id number] [facility] Rx#:[id number] Tube Feeding 60 10 Other 30 Output: Urine 1545 725 540 Other: Voiding Method Indwelling Catheter Indwelling Catheter Indwelling Catheter ABP, PAP, CO, CI - Last Documented Arterial Blood Pressure 95/45 - Labs CBC & Chem 7: 02/27/25 05:10 02/27/25 05:10 Labs: Abnormal Lab Results - Last 24 Hours (Table) 02/26/25 02/27/25 02/27/25 Range/Units 15:53 05:10 05:10 WBC 14.78 H (4.50-10.00) 10*3/uL RBC 3.48 L (4.10-5.20) 10*6/uL Hgb 9.6 L (12.0-15.0) g/dL Hct 31.5 L (37.2-46.3) % MCHC 30.5 L (32.0-37.0) g/dL Immature Gran # 0.05 H (0.00-0.04) 10*3/uL Neutrophils # 12.16 H (1.80-7.70) 10*3/uL Lymphocytes # 0.83 L (0.90-5.00) 10*3/uL Eosinophils # 1.10 H (0.04-0.35) 10*3/uL ABG pH 7.51 H (7.35-7.45) ABG pCO2 (35-45) mmHg ABG pO2 52 L* (83-108) mmHg ABG HCO3 34 H (21-25) mmol/L ABG Total CO2 36 H (19-24) mmol/L ABG O2 Saturation 85.2 L (94-97) % Hemoglobin 9.6 L (11.4-16.0) gm/dL BUN 24 H (7-17) mg/dL 02/27/25 02/27/25 02/27/25 Range/Units 05:54 06:54 10:48 WBC (4.50-10.00) 10*3/uL RBC (4.10-5.20) 10*6/uL Hgb (12.0-15.0) g/dL Hct (37.2-46.3) % MCHC (32.0-37.0) g/dL Immature Gran # (0.00-0.04) 10*3/uL Neutrophils # (1.80-7.70) 10*3/uL Lymphocytes # (0.90-5.00) 10*3/uL Eosinophils # (0.04-0.35) 10*3/uL ABG pH 7.53 H 7.49 H (7.35-7.45) ABG pCO2 48 H (35-45) mmHg ABG pO2 34 L* 38 L* 65 L (83-108) mmHg ABG HCO3 32 H 32 H 33 H (21-25) mmol/L ABG Total CO2 34 H 34 H 35 H (19-24) mmol/L ABG O2 Saturation 63.6 L 67.8 L 91.1 L (94-97) % Hemoglobin 10.1 L 10.2 L 10.0 L (11.4-16.0) gm/dL BUN (7-17) mg/dL Microbiology - Last 24 Hours (Table) 02/23/25 15:35 Blood Culture - Preliminary Blood
--- NOTE | 2025-02-27 14:27 | P.PN ---
Subjective Progress Note Date: 02/27/25 Principal diagnosis: Acute hypoxic respiratory failure secondary to acute pulmonary edema 54-year-old female patient got transferred to the intensive care unit because of acute respiratory distress, hypoxemia and diminished level of consciousness. The patient was originally hospitalized on 02/20/2025 for generalized weakness and a fall. She has multiple medical problems and comorbidities. I was involved in her care back in 2021 and at that time the patient had a COVID-19 related pneumonia with prolonged respiratory failure requiring a tracheostomy tube insertion and subsequent removal to facilitate her weaning off the mechanical ventilator. She is also known to have coronary artery disease and cardiac catheterization back in 2008 showed minimal CAD, cardiomyopathy and the most recent echocardiogram from August 2023 showed an ejection fraction of 35 to 40% and global LV hypokinesis. The patient also has paroxysmal atrial fibrillation she has a AICD in place. 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 During this current hospitalization, the patient was seen by cardiology. The patient was also seen by neurology and CT of the brain and the neck revealed no evidence of any dissection of the cervical internal carotid artery or vertebral artery. The patient was asked to continue anticoagulation with Eliquis. The patient was asked to continue Keppra 1.5 g twice a day and Tegretol 200 mg 3 times daily and gabapentin 600 mg p.o. 3 times daily regarding her previous history of seizure disorder. The patient was also seen by wound services as the patient has multiple nonhealing ulceration limited to skin breakdown and bullous pemphigoid. Zinc barrier cream was offered to the patient. The patient was also seen by infectious diseases and the patient was offered broad-spectrum antibiotics with vancomycin Overnight, the patient was hypotensive. The patient was given a bolus of fluid and IV albumin. Subsequently, the patient went into acute respiratory distress and the patient was severely hypoxic. She got transferred to the intensive care unit. Immediately, the patient was intubated and placed on the mechanical ventilator due to lack of oxygenation and altered mentation. Reviewed the chest x-ray postintubation and the patient has diffuse bilateral pulmonary infiltrates consistent with acute pulmonary edema. There is large amount of airspace disease bilaterally and suspect small pleural effusion. At this point in time, the patient is still intubated on a mechanical ventilator. Noted she was started on propofol and she was also given a dose of Nimbex to maintain synchrony with the mechanical ventilator and improve oxygenation. She is currently on assist-control mode at rate of 60, tidal volume of 400, FiO2 100% with a PEEP of 16. The most recent blood gases showed a pH of 7.23 with a PCO2 of 63 and PO251. She is currently on propofol running at 30 mcg/kg/min. Cardiac rhythm is sinus. Blood pressure is stable. No pressors. The patient was given Lasix 40 mg IV every 12 hours. Urine output since arrival to the ICU was in order of more than 200 cc an hour. On today's evaluation of 02/24/2025, the patient is being seen for a follow-up. The patient remains intubated on a mechanical ventilator. The patient is currently on propofol running at 30 mcg/kg/min. The patient is currently off paralytics and Nimbex has been discontinued. The patient remains assist-control mode of mechanical ventilation at rate of 24, tidal volume of 400, FiO2 50% with a PEEP of 5. Blood gases show a pH of 7.54 with a PVI521 and PO2 of 188. Chest x-ray shows improvement of bilateral pulmonary edema. The patient remains on a combination of IV cefepime and aztreonam, and vancomycin.. The patient remains on IV Lasix. Fluid balance is -3 L over the past 24 hours and the patient remains hemodynamically stable. The patient is in sinus tachycardia. The patient has no fever. The white cell, 11.3 with a hemoglobin 8.3 and a platelet count of 311. Sodium is at 140, BUN is 17 and a creatinine of 0.54 and potass ium level is at 3.7. The patient remains on anticoagulation with Eliquis 5 mg p.o. twice a day. Rest of the home medications have been resumed. CAT scan of the brain was also performed yesterday and it showed no acute intracranial process. There is a stable remote right large MCA distribution infarct and encephalomalacia. Remote left frontal lobe infarct with encephalomalacia. Echocardiogram was also done on 02/23/2025 and the patient has developed systolic heart failure with a left ventricular ejection fraction of 25 to 30%. There is moderate reduction of the global LV function. There is severe increased left ventricular diastolic volume. There is also mild to moderate mitral regurg itation. No other significant valvular abnormalities has been noted. Remains on Lasix 40 mg IV every 12 hours. Continues to receive wound Care. Seen today on 02/25/2025, patient remains in the ICU, intubated and mechanically ventilated, on assist-control rate of 24 tidal volume 400 FiO2 40% and PEEP of 5. Patient is still requiring pressors/norepinephrine at 0.03 mcg/kg/min she is on Precedex at 0.4 mcg/kg/h patient is on Lasix 40 mg IV push every 12 hours she has E. coli in her urine and she is receiving cefepime and Azactam. Her echocardiogram showed severe LV dysfunction with ejection fraction of 25 to 30% patient was intubated on 02/23, still receiving diuretics. Today I plan to give the patient a trial of weaning with pressure support of 10 and CPAP, however her MIP was very low and I decided to continue pressure support and CPAP as long as possible and hopefully repeat her again and hopefully try to wean today. At this point in time she is not ready for extubation. Chest x-ray is showing evidence of improving pulmonary edema. Her WBC is 9.8 hemoglobin is 8.1 basic metabolic profile is normal except for low potassium of 3.3 BUN is 23 creatinine 0.65. Patient was seen today on 02/26/2025, remains in the ICU, intubated and mechanically ventilated, patient is on pressure support and CPAP mode of mechanical ventilation, she has been on it since yesterday, patient is also on 40% FiO2, weaning parameters seem to be a bit better today compared to yesterday, patient follows simple instructions but she does not open her eyes. She is off norepinephrine she used to be on 0.02 mcg/kg/min, patient is hemodynamically stable at this point, however I am a bit concerned about her mental status especially when she does not open her eyes. Seems to be very weak and frail, I did recommend extubation to a pressure support of 10/5 and FiO2 of 40%. Her labs were all reviewed ABG today showed a pO2 of 110 pCO2 43 pH of 7.47 and this was on CPAP earlier. WBC count is 10.8 hemoglobin 8.7, basic metabolic profile is normal potassium is a bit low at 3.4 renal profile is normal. Chest x-ray continues to show multifocal airspace opacities and stable support lines and tubes. Seen today on 02/27/2025, patient was extubated today to BiPAP, she was marginal to begin with, but I felt we had the best window to extubate yesterday based on all the parameters. Patient remained marginal post extubation, and she required BiPAP at relatively high FiO2. This morning, patient ended up with worsening hypoxia requiring intubation chest x-ray postintubation showed almost near complete opacification of the left lung. Hence I performed bronchoscopy and I was able to suction a mucous plug in the left upper lobe which was most likely in the left mainstem bronchus at the time of the chest x-ray but moved up to the left upper lobe. This was suctioned and follow-up chest x-ray showed significant improvement. Patient is now intubated, mechanically ventilated, she is on assist-control rate of 24 tidal volume 400 FiO2 100% PEEP of 10 however later on I cut down her FiO2 down to 50%. ABG done on 50% FiO2 showed a pO2 of 65 pCO2 48 pH of 7.45 hence we kept the patient on the same vent settings as noted earlier. Patient is also requiring propofol at 60 mg/kg/min IV fluid KVO vital HP at she has now a right brachial arterial line, remains on cefepime. Follow-up chest x-ray post bronchoscopy showed significantly improved aeration of the left lung and also showed stable support lines and tubes. Objective - Vital Signs Vital signs: Vital Signs Temp 100.4 F H 02/27/25 08:00 Pulse 105 H 02/27/25 13:00 Resp 27 H 02/27/25 13:00 BP 107/69 02/27/25 13:00 Pulse Ox 94 L 02/27/25 13:00 FiO2 100 02/27/25 11:56 Intake & Output 02/26/25 02/27/25 02/27/25 18:59 06:59 18:59 Intake Total 366.505 485.305 318.087 Output Total 1545 725 540 Balance -1178.495 -239.695 -221.913 Weight 55.2 kg Intake: IV 253 376 161 0.9 Sodium Chloride 220 240 140 Arterial Line 33 36 21 Cefepime 2 gm In Sodium 100 Chloride 0.9% 100 ml @ 25 mls/hr IVPB Q8H [facility] Rx#: [id number] Intake, IV Titration 23.505 109.305 147.087 Amount Dexmedetomidine/0.9% NaCl 14.595 102.743 (Pmx) 400 mcg In Empty Bag 1 bag @ 0.2 MCG/KG/HR 3.03 mls/hr IV .Q24H [facility] Rx#:[id number] Norepinephrine 8 mg In 8.91 0 5.744 Sodium Chloride 0.9% 250 ml @ 0.03 MCG/KG/MIN 3. 628 mls/hr IV .Q24H [facility] Rx#:[id number] propofoL 1,000 mg In 6.562 141.343 Empty Bag 1 bag @ 15 MCG/ KG/MIN 5.625 mls/hr IV . [id number] [facility] Rx#:[id number] Tube Feeding 60 10 Other 30 Output: Urine 1545 725 540 Other: Voiding Method Indwelling Catheter Indwelling Catheter Indwelling Catheter ABP, PAP, CO, CI - Last Documented Arterial Blood Pressure 95/45 - Exam GENERAL: Revealed 54-year-old female on mechanical ventilation, patient was reintubated early this morning HEENT: PERRLA, EOMI, nonicteric. Endotracheal tube and orogastric tube are intact CARDIOVASCULAR: S1 and S2 present. No murmurs, rubs, or gallops. PULMONARY: Minimal crackles at the bases no rhonchi no wheezes ABDOMEN: Soft, nontender, nondistended, normoactive bowel sounds. No palpable organomegaly. MUSCULOSKELETAL: No joint swelling or deformity. EXTREMITIES: No cyanosis, clubbing, or pedal edema. Skin:-Friable bullae noted with surrounding erythema -NEUROLOGICAL: Could not assess patient is sedated, on propofol. Psychiatric: Could not fully assess. - Labs CBC & Chem 7: 02/27/25 05:10 02/27/25 05:10 Labs: Abnormal Lab Results - Last 24 Hours (Table) 02/26/25 02/27/25 02/27/25 Range/Units 15:53 05:10 05:10 WBC 14.78 H (4.50-10.00) 10*3/uL RBC 3.48 L (4.10-5.20) 10*6/uL Hgb 9.6 L (12.0-15.0) g/dL Hct 31.5 L (37.2-46.3) % MCHC 30.5 L (32.0-37.0) g/dL Immature Gran # 0.05 H (0.00-0.04) 10*3/uL Neutrophils # 12.16 H (1.80-7.70) 10*3/uL Lymphocytes # 0.83 L (0.90-5.00) 10*3/uL Eosinophils # 1.10 H (0.04-0.35) 10*3/uL ABG pH 7.51 H (7.35-7.45) ABG pCO2 (35-45) mmHg ABG pO2 52 L* (83-108) mmHg ABG HCO3 34 H (21-25) mmol/L ABG Total CO2 36 H (19-24) mmol/L ABG O2 Saturation 85.2 L (94-97) % Hemoglobin 9.6 L (11.4-16.0) gm/dL BUN 24 H (7-17) mg/dL 02/27/25 02/27/25 02/27/25 Range/Units 05:54 06:54 10:48 WBC (4.50-10.00) 10*3/uL RBC (4.10-5.20) 10*6/uL Hgb (12.0-15.0) g/dL Hct (37.2-46.3) % MCHC (32.0-37.0) g/dL Immature Gran # (0.00-0.04) 10*3/uL Neutrophils # (1.80-7.70) 10*3/uL Lymphocytes # (0.90-5.00) 10*3/uL Eosinophils # (0.04-0.35) 10*3/uL ABG pH 7.53 H 7.49 H (7.35-7.45) ABG pCO2 48 H (35-45) mmHg ABG pO2 34 L* 38 L* 65 L (83-108) mmHg ABG HCO3 32 H 32 H 33 H (21-25) mmol/L ABG Total CO2 34 H 34 H 35 H (19-24) mmol/L ABG O2 Saturation 63.6 L 67.8 L 91.1 L (94-97) % Hemoglobin 10.1 L 10.2 L 10.0 L (11.4-16.0) gm/dL BUN (7-17) mg/dL Microbiology - Last 24 Hours (Table) 02/23/25 15:35 Blood Culture - Preliminary Blood Assessment and Plan Assessment: Impression: Acute hypoxic respiratory failure secondary to acute pulmonary edema Acute systolic congestive heart failure ejection fraction of 25 to 30% Bullous pemphigoid disease Paroxysmal atrial fibrillation History of seizure disorder Chronic bilateral lower extremity cellulitis secondary to MRSA Hypotension secondary to severe sepsis History of underlying coronary artery disease History of pulmonary embolism History of bilateral internal carotid artery stenosis History of CVA with persistent hemiplegia Paroxysmal atrial fibrillation History of pulmonary embolism, on Eliquis History of pacemaker implantation Hypothyroidism History of psoriasis Left lung opacification noted on 02/27/2025, requiring bronchoscopy and extraction of mucous plug noted in the left upper lobe. Failed extubation, patient lasted almost 24 hours of mechanical ventilation. Had to be reintubated on 02/27/2025. Recommendation: Continue ventilatory support again patient had to be reintubated earlier this morning Continue antibiotics for UTI Continue Lasix 40 mg IV push twice daily Continue amiodarone Continue Eliquis Continue wound care Continue Seroquel Resume nutritional support/enteral feeding Continue GI DVT prophylaxis Use pressors if felt necessary. Patient remains critically ill Critical care time is 33 minutes excluding time spent on bronchoscopy and arterial line placement. Time with Patient: Greater than 30
[2025-02-27 23:25] LABS: Glucose,Whole Blood 94 mg/dL (70-110)
[2025-02-28] MEDS: POTASSIUM BICARBONATE/CIT AC 20 MEQ TABLET.EFF NG-TUBE SCH ×2 (03:17→08:20)
[2025-02-28 04:37] LABS: Basophils # (A) 0.04 10*3/uL (0.00-0.10); Basophils % (A) 0.3 %; Eosinophils # (A) 0.82 10*3/uL (0.04-0.35); Eosinophils % (A) 5.2 %; HCT 30.5 % (37.2-46.3); HGB 9.0 g/dL (12.0-15.0); Lymphocytes # (A) 0.66 10*3/uL (0.90-5.00); Lymphocytes % (A) 4.2 %; MCH 26.5 pg (27.0-32.0); MCHC 29.5 g/dL (32.0-37.0); MCV 90.0 fL (80.0-97.0); Monocytes # (A) 0.60 10*3/uL (0.20-1.00); Monocytes % (A) 3.8 %; Neutrophils # (A) 13.69 10*3/uL (1.80-7.70); Neutrophils % (A) 86.0 %; Platelet Count 331 10*3/uL (140-440); RBC 3.39 10*6/uL (4.10-5.20); RDW 16.9 % (11.5-14.5); WBC 15.89 10*3/uL (4.50-10.00)
[2025-02-28 05:05] LABS: African American GFR (CKD) >90 (>60 ml/min/1.73 sqM); Anion Gap 10 mmol/L; Blood Urea Nitrogen 28 mg/dL (7-17); Calcium 8.6 mg/dL (8.4-10.2); Carbon Dioxide 34 mmol/L (22-30); Chloride 100 mmol/L (98-107); Glucose 136 mg/dL (74-99); Non-African American GFR(CKD) >90 (>60 ml/min/1.73 sqM); Potassium 3.4 mmol/L (3.5-5.1); Sodium 144 mmol/L (137-145)
[2025-02-28 05:24] LABS: ABG HCO3 35 mmol/L (21-25); ABG PCO2 48 mmHg (35-45); ABG PH 7.48 (7.35-7.45); ABG PO2 122 mmHg (83-108); ABG TCO2 37 mmol/L (19-24)
[2025-02-28 05:28] LABS: Glucose,Whole Blood 115 mg/dL (70-110)
[2025-02-28 06:27] LABS: Allen Test Performed? No
[2025-02-28] MEDS: LORazepam 1 MG/0.5 ML VIAL IV STA (06:55)
--- NOTE | 2025-02-28 07:07 | P.PN ---
Subjective Progress Note Date: 02/28/25 The patient was seen this morning. She continues to be intubated on mechanical ventilation she continues to be hemodynamically stable requiring norepinephrine but she is requiring less norepinephrine compared to before. Urine output continues to be marginal. She is on Lasix IV at 40 mg twice daily. She is not on any cardiomyopathy medications because of the hemodynamical instability and requiring norepinephrine. The echo showed an EF between 25 to 30%. The physical examination is remarkable for intubated patient on mechanical ventilation with diminished breathing sounds bilaterally and regular rate and rhythm. February 26, 2025 The patient was seen and evaluated this morning. She continues to be intubated. She is still on Lasix IV. The pressure still low requiring norepinephrine but we are coming down with a dose. The chest x-ray was reviewed this morning and seems to be overall better in terms of fluid overload. We potentially can come down with a dose of IV Lasix and possible wean the patient off from norepinephrine. The physical examination is remarkable for regular rhythm with diminished breathing sounds bilaterally and mild bilateral lower extremity edema and skin changes noted. She is on oral anticoagulation. February 27, 2025 The patient was seen and evaluated this morning. She was extubated yesterday and then she reintubated again because she developed hypoxic respiratory failure. The chest x-ray showed complete opacification of the left lung. She is in process of having possible bronchoscopy. Hemodynamically she remains unstable requiring small dose of norepinephrine. The physical examination is remarkable for regular rate and rhythm with a systolic murmur at the right and left upper sternal border and wheezing was noted also. February 28, 2025 The patient was seen and evaluated this morning. She underwent bronchoscopy yesterday. The chest x-ray today appears to be better. The complete opacification of the left lung has resolved completely. Currently she is intubated on mechanical ventilation. She is off norepinephrine at this point and hemodynamically stable and maintaining normal sinus mechanism. Physical examination is remarkable for regular rhythm with a systolic murmur at the right upper sternal border and clear breathing sounds bilaterally and no edema was noted in the lower extremities with extensive skin rash. Assessment Acute hypoxic respiratory failure Severe cardiomyopathy Heart failure with reduced ejection fraction Paroxysmal atrial fibrillation Sinus rhythm at this point Multiple comorbid conditions including anemia Plan Continue the current medical regimen Continue oral anticoagulation and amiodarone Continue monitor the kidney function and electrolytes and hemoglobin Consider restarting the patient's back on cardiomyopathy medication once she is off norepinephrine Consider starting the patient on the cardiomyopathy medication in the next 24 to 48 hours if she remains hemodynamically stable Objective - Vital Signs Vital signs: Vital Signs Temp 98.7 F 02/28/25 05:00 Pulse 112 H 02/28/25 06:30 Resp 18 02/28/25 06:30 BP 133/75 02/28/25 06:30 Pulse Ox 94 L 02/28/25 06:30 FiO2 40 02/28/25 06:37 Intake & Output 02/27/25 02/28/25 02/28/25 18:59 06:59 18:59 Intake Total 573.087 638 69.375 Output Total 750 615 Balance -176.913 23 69.375 Weight 56 kg Intake: IV 276 208 0.9 Sodium Chloride 240 90 Arterial Line 36 18 Cefepime 2 gm In Sodium 100 Chloride 0.9% 100 ml @ 25 mls/hr IVPB Q8H ADDIE Rx#: [id number] Intake, IV Titration 147.087 200 69.375 Amount Norepinephrine 8 mg In 5.744 Sodium Chloride 0.9% 250 ml @ 0.03 MCG/KG/MIN 3. 628 mls/hr IV .Q24H ADDIE Rx#:[id number] propofoL 1,000 mg In 141.343 200 69.375 Empty Bag 1 bag @ 15 MCG/ KG/MIN 5.625 mls/hr IV . [id number] ADDIE Rx#:[id number] Tube Feeding 60 110 Other 90 120 Output: Urine 750 615 Other: Voiding Method Indwelling Catheter Indwelling Catheter ABP, PAP, CO, CI - Last Documented Arterial Blood Pressure 138/67 - Labs CBC & Chem 7: 02/28/25 04:07 02/28/25 04:07 Labs: Abnormal Lab Results - Last 24 Hours (Table) 02/27/25 02/27/25 02/28/25 Range/Units 06:54 10:48 01:41 WBC (4.50-10.00) 10*3/uL RBC (4.10-5.20) 10*6/uL Hgb (12.0-15.0) g/dL Hct (37.2-46.3) % MCH (27.0-32.0) pg MCHC (32.0-37.0) g/dL Immature Gran # (0.00-0.04) 10*3/uL Neutrophils # (1.80-7.70) 10*3/uL Lymphocytes # (0.90-5.00) 10*3/uL Eosinophils # (0.04-0.35) 10*3/uL ABG pH 7.49 H (7.35-7.45) ABG pCO2 48 H (35-45) mmHg ABG pO2 38 L* 65 L (83-108) mmHg ABG HCO3 32 H 33 H (21-25) mmol/L ABG Total CO2 34 H 35 H (19-24) mmol/L ABG O2 Saturation 67.8 L 91.1 L (94-97) % Hemoglobin 10.2 L 10.0 L (11.4-16.0) gm/dL Potassium 3.2 L (3.5-5.1) mmol/L Carbon Dioxide (22-30) mmol/L BUN (7-17) mg/dL Glucose (74-99) mg/dL POC Glucose (mg/dL) (70-110) mg/dL 02/28/25 02/28/25 02/28/25 Range/Units 04:07 04:07 05:19 WBC 15.89 H (4.50-10.00) 10*3/uL RBC 3.39 L (4.10-5.20) 10*6/uL Hgb 9.0 L (12.0-15.0) g/dL Hct 30.5 L (37.2-46.3) % MCH 26.5 L (27.0-32.0) pg MCHC 29.5 L (32.0-37.0) g/dL Immature Gran # 0.08 H (0.00-0.04) 10*3/uL Neutrophils # 13.69 H (1.80-7.70) 10*3/uL Lymphocytes # 0.66 L (0.90-5.00) 10*3/uL Eosinophils # 0.82 H (0.04-0.35) 10*3/uL ABG pH 7.48 H (7.35-7.45) ABG pCO2 48 H (35-45) mmHg ABG pO2 122 H (83-108) mmHg ABG HCO3 35 H (21-25) mmol/L ABG Total CO2 37 H (19-24) mmol/L ABG O2 Saturation 98.8 H (94-97) % Hemoglobin 9.3 L (11.4-16.0) gm/dL Potassium 3.4 L (3.5-5.1) mmol/L Carbon Dioxide 34 H (22-30) mmol/L BUN 28 H (7-17) mg/dL Glucose 136 H (74-99) mg/dL POC Glucose (mg/dL) (70-110) mg/dL 02/28/25 Range/Units 05:27 WBC (4.50-10.00) 10*3/uL RBC (4.10-5.20) 10*6/uL Hgb (12.0-15.0) g/dL Hct (37.2-46.3) % MCH (27.0-32.0) pg MCHC (32.0-37.0) g/dL Immature Gran # (0.00-0.04) 10*3/uL Neutrophils # (1.80-7.70) 10*3/uL Lymphocytes # (0.90-5.00) 10*3/uL Eosinophils # (0.04-0.35) 10*3/uL ABG pH (7.35-7.45) ABG pCO2 (35-45) mmHg ABG pO2 (83-108) mmHg ABG HCO3 (21-25) mmol/L ABG Total CO2 (19-24) mmol/L ABG O2 Saturation (94-97) % Hemoglobin (11.4-16.0) gm/dL Potassium (3.5-5.1) mmol/L Carbon Dioxide (22-30) mmol/L BUN (7-17) mg/dL Glucose (74-99) mg/dL POC Glucose (mg/dL) 115 H (70-110) mg/dL Microbiology - Last 24 Hours (Table) 02/23/25 15:35 Blood Culture - Preliminary Blood
--- NOTE | 2025-02-28 07:22 | XR ---
EXAMINATION TYPE: XR chest 1V portable DATE OF EXAM: 02/28/2025 5:25 AM COMPARISON: Multiple radiographs, with the most recent on 03-22 TECHNIQUE: XR chest 1V portable Portable AP radiograph of the chest. CLINICAL INDICATION:Female, 54 years old with history of Mechanical ventilation; FINDINGS: Lungs/Pleura: Medial right lower lung subsegmental atelectasis has improved. No pneumothorax. No pleu ral effusion. Significantly improved aeration of the left lung status post bronchoscopy. Pulmonary vascularity: Unremarkable. Heart/mediastinum: Cardiomediastinal silhouette is enlarged and stable. Single-lead cardiac conductio n device overlying the left hemithorax with lead projecting over the right ventricle. Musculoskeletal: No acute osseous pathology. Other findings: None Lines/Tubes: Endotracheal tube with distal tip 6.5 cm above the polo Nasogastric tube with its distal tip and side-port projecting under the diaphragm. Stable left IJ approach central venous catheter with distal tip at the superior cavoatrial junction. IMPRESSION: 1. Medial right lower lung subsegmental atelectasis has improved. No new focal consolidation. 2. Stable support lines and tubes. [facility], , 02/28/2025 7:19 AM
[2025-02-28] MEDS ORDERED: LORazepam 1 MG/0.5 ML VIAL IV PRN ×2 (07:28→16:44)
--- NOTE | 2025-02-28 10:24 | P.PN ---
Progress Note - Text Progress Note Date: 02/28/25 Preliminary EEG: Negative for seizure or discharges. An official report to follow later.
[2025-02-28 11:21] LABS: Glucose,Whole Blood 174 mg/dL (70-110)
[2025-02-28] MEDS: MAGNESIUM SULFATE-D5W PMX 1 GM in DEXTROSE/WATER 1 100ML.BAG IVPB ONE (11:34)
--- NOTE | 2025-02-28 13:14 | P.PN ---
Subjective Progress Note Date: 02/28/25 This is a pleasant 54 years old female who was recently diagnosed with bullous pemphigoid 3 months ago when she is sent from this facility to [facility], she had a biopsy followed by treatment with doxycycline and taper prednisone over 3 weeks. Also she has extensive long history of CHF and seizure disorder. She was previously in the ICU for severe sepsis. Now presents because of generalized weakness. Patient states she went and fell today while she was trying to get up to go to the restroom she found a green chair on her way she was too weak to move with so she fell on her buttocks she could not get up as usual so she called the family who helped her and called EMS. Patient stayed on the floor for about 25 minutes as she explains. Denies any abdominal pain vomiting or diarrhea Denies dysuria urgency but states she has not been since yesterday and she has been drinking a lot of water for this reason Denies chest pain or dyspnea or coughing. No headache dizziness She is a known case of previous stroke and severe left hemiparesis, patient states it is worse than before this time. Also there was some concern from some slurred speech but no double vision. Patient complains from feeling swollen in her legs She has extensive bullous disease, majority of them are ruptured throughout her trunk and extremities and there is surrounding with erythema more extensive edema in the lower extremities bilaterally. However there is no purulent discharge. 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 Noriega neurologist is Dr. quiroz Patient with no fever blood pressure slightly on the low side but patient is symptomatic Blood pressure is fluctuation slightly on the low side Hemoglobin 10 WBC normal 8.6. Rest of labs unremarkable including electrolytes proBNP 1740 CT of the head and neck showing moderate stenosis of bilateral internal carotid arteries CT of the brain showing remote right large MCA territory infarct with encephalomalacia and remote left frontal infarct with encephalomalacia and bilateral cerebellar encephalomalacia Chest x-ray showing mild interstitial prominence may be bronchitis rule out mild pulmonary vascular congestion 02/21 Patient awake alert She looks hypovolemic with positive orthostatic vitals, yesterday we will give her a bolus of 500 cc. Albumin dropped from 2.7 down to 2.0. Patient has slightly worse leg swelling. She has multiple friable and ruptured bullae on the trunk and extremities with mild erythema surrounding these bullae especially in the lower extremities. These are chronic for the last 3 months diagnosed with bullous pemphigoid. Patient states that she took the steroids and that did not help much. She denies chest pain or dyspnea. No abdominal pain or vomiting. Patient currently not on antibiotics per ID team recommendation to keep monitoring while off antibiotics. No fever. Patient was on doxycycline for her bullous lesions at [facility] not sure if she needed for now, keep holding doxycycline. Cardiology is going to evaluate the patient. Neurology service also on the case however patient has chronic hemiplegia, and this morning she is not sure if it is left hemiplegia is at baseline or worse, however is severe and does not make much difference. No slurred speech no blurry vision. 02/22 Patient is looks tired lethargic Kirlin in bed and was shivering in the morning and developing fever also she is tachycardic and blood pressure is soft No chest pain or abdominal pain Still has erythema and swelling of both lower extremities suspected secondary to cellulitis, MRSA suspected and currently she is on IV vancomycin with infectious disease team recommendation She has good urine output and creatinine within the reference range. We give her a bolus of albumin given her hypoalbuminemia also if blood pressure remains low may consider a bolus of normal saline later on Midodrine was prescribed on admission as needed for hypotension but was not given by staff despite low blood pressure therefore we are going to switch it to standing dose Monitor labs and electrolytes and vitals closely 02/23 Patient yesterday was found unresponsive on the floor and there was foam in her mouth A team was called Patient got intubated and placed on mechanical ventilation transferred to the ICU. Patient currently intubated and sedated. Yesterday patient was hypotensive and tachycardic and altered mental status. This morning required Levophed 02/23 Patient remains in the ICU intubated and sedated, PEEP is 5 improved Female family member at bedside. Patient earlier was able to work She opened eyes and tried to communicate and she could recognize the family member, she was anxious as per family Patient required small dose of pressors earlier Continue on same antibiotics as per infectious disease team Off IV fluid Echocardiogram showed ejection fraction of 25 to 30% Increased left ventricular mass with very severe LV dysfunction Sputum culture growing Staph aureus pansensitive he Patient's rash of the lower extremity is significantly improved Discussed the case with pulmonary team 02/25. Patient seen and examined. Patient continues to be intubated 02/26. Patient seen and examined. Labs done this morning showed WBC 10.84, hemoglobin 8.7, sodium 141, potassium 3.4, BUN 24, creatinine 0.67, calcium 8.2. Currently on CPAP, planning for patient for extubation today 02/27. Patient seen and examined. Patient was extubated last evening but this morning when he respiratory distress and had to be reintubated. Patient also spiking fever this morning. Patient was bronched this morning and found noted to have mucous plugging 02/28. Patient seen and examined.. Patient had episode overnight where she was biting on the ET tube, was also stiffened up, received 1 dose of Ativan. EEG ordered REVIEW OF SYSTEMS: Review of system cannot be obtained patient currently debated PHYSICAL EXAMINATION: GENERAL: The patient is intubated HEENT: Pupils are round and equally reacting to light. EOMI. No scleral icterus. No conjunctival pallor. Normocephalic, atraumatic. No pharyngeal erythema. No thyromegaly. CARDIOVASCULAR: S1 and S2 present. No murmurs, rubs, or gallops. PULMONARY: Chest is clear to auscultation, no wheezing or crackles. ABDOMEN: Soft, nontender, nondistended, normoactive bowel sounds. No palpable organomegaly. MUSCULOSKELETAL: No joint swelling or deformity. EXTREMITIES: No cyanosis, clubbing, or pedal edema. NEUROLOGICAL: Intubated SKIN: Multiple areas of skin ulceration and breakdown seen Assessment and plan Acute hypoxic respiratory failure Acute systolic heart failure Severe sepsis Bilateral lower extremity cellulitis thought secondary to MRSA Hypotension secondary to above Worsening weakness on the left side associated with fall without syncope and transient slurred speech and some swallowing difficulty, rule out new stroke or worsening stroke Bullous pemphigoid with multiple eroded and friable bullae throughout the trunk and extremities with surrounding erythema on doxycycline and prednisone previously Cardiomyopathy with ejection fraction 35% Coronary artery disease History of PE History of stroke with persistent hemiplegia Moderate bilateral internal carotid artery stenosis Seizure disorder with history of breakthrough seizure Generalized weakness Monitor vital signs Monitor CBC Monitor CMP Continue telemetry monitoring Continue vent management Aggressive bronchopulmonary hygiene Follow-up on blood cultures Follow-up urine culture Continue cefepime EEG ordered Continue Eliquis 5 mg twice daily for stroke prevention from A-fib. continue seizure medications including Keppra 1500 mg twice daily, Tegretol 200 mg 3 times daily and gabapentin 600 mg 3 times daily. ID following, on recommendation noted from 02/28 Pulmonology following, recommendation noted from 02/28 Cardiology following, recommendation noted from 02/28 Labs and medication were reviewed.. Continue same treatment. Continue with symptomatic treatment. Resume home medication. Monitor labs and vitals. DVT and GI prophylaxis. Further recommendations as per clinical course of the patient Dictation was produced using [employer] dictation software. please excuse any grammatical, word or spelling errors. Objective - Vital Signs Vital signs: Vital Signs Temp 100.9 F H 02/28/25 12:30 Pulse 86 02/28/25 13:00 Resp 23 02/28/25 13:00 BP 112/64 02/28/25 12:00 Pulse Ox 99 02/28/25 13:00 FiO2 40 02/28/25 12:03 Intake & Output 02/27/25 02/28/25 02/28/25 18:59 06:59 18:59 Intake Total 573.087 936 651.512 Output Total 750 920 170 Balance -176.913 16 481.512 Weight 56 kg Intake: IV 276 296 153 0.9 Sodium Chloride 240 160 60 Arterial Line 36 36 18 Cefepime 2 gm In Sodium 100 75 Chloride 0.9% 100 ml @ 25 mls/hr IVPB Q8H ADDIE Rx#: [id number] Intake, IV Titration 147.087 200 218.512 Amount Magnesium Sulfate-D5w Pmx 100 1 gm In Dextrose/Water 1 100ml.bag @ 100 mls/hr IVPB ONCE ONE Rx#: [id number] Norepinephrine 8 mg In 5.744 30.698 Sodium Chloride 0.9% 250 ml @ 0.03 MCG/KG/MIN 3. 628 mls/hr IV .Q24H ADDIE Rx#:[id number] propofoL 1,000 mg In 141.343 200 69.375 Empty Bag 1 bag @ 15 MCG/ KG/MIN 5.625 mls/hr IV . [id number] ADDIE Rx#:[id number] propofoL 1,000 mg In 18.439 Empty Bag 1 bag @ 15 MCG/ KG/MIN 5.625 mls/hr IV . [id number] ADDIE Rx#:[id number] Tube Feeding 60 260 220 Other 90 180 60 Output: Urine 750 920 170 Other: Voiding Method Indwelling Catheter Indwelling Catheter Indwelling Catheter ABP, PAP, CO, CI - Last Documented Arterial Blood Pressure 106/44 - Labs CBC & Chem 7: 02/28/25 04:07 02/28/25 11:35 Labs: Abnormal Lab Results - Last 24 Hours (Table) 02/28/25 02/28/25 02/28/25 Range/Units 01:41 04:07 04:07 WBC 15.89 H (4.50-10.00) 10*3/uL RBC 3.39 L (4.10-5.20) 10*6/uL Hgb 9.0 L (12.0-15.0) g/dL Hct 30.5 L (37.2-46.3) % MCH 26.5 L (27.0-32.0) pg MCHC 29.5 L (32.0-37.0) g/dL Immature Gran # 0.08 H (0.00-0.04) 10*3/uL Neutrophils # 13.69 H (1.80-7.70) 10*3/uL Lymphocytes # 0.66 L (0.90-5.00) 10*3/uL Eosinophils # 0.82 H (0.04-0.35) 10*3/uL ABG pH (7.35-7.45) ABG pCO2 (35-45) mmHg ABG pO2 (83-108) mmHg ABG HCO3 (21-25) mmol/L ABG Total CO2 (19-24) mmol/L ABG O2 Saturation (94-97) % Hemoglobin (11.4-16.0) gm/dL Potassium 3.2 L 3.4 L (3.5-5.1) mmol/L Carbon Dioxide 34 H (22-30) mmol/L BUN 28 H (7-17) mg/dL Glucose 136 H (74-99) mg/dL POC Glucose (mg/dL) (70-110) mg/dL 02/28/25 02/28/25 02/28/25 Range/Units 05:19 05:27 11:20 WBC (4.50-10.00) 10*3/uL RBC (4.10-5.20) 10*6/uL Hgb (12.0-15.0) g/dL Hct (37.2-46.3) % MCH (27.0-32.0) pg MCHC (32.0-37.0) g/dL Immature Gran # (0.00-0.04) 10*3/uL Neutrophils # (1.80-7.70) 10*3/uL Lymphocytes # (0.90-5.00) 10*3/uL Eosinophils # (0.04-0.35) 10*3/uL ABG pH 7.48 H (7.35-7.45) ABG pCO2 48 H (35-45) mmHg ABG pO2 122 H (83-108) mmHg ABG HCO3 35 H (21-25) mmol/L ABG Total CO2 37 H (19-24) mmol/L ABG O2 Saturation 98.8 H (94-97) % Hemoglobin 9.3 L (11.4-16.0) gm/dL Potassium (3.5-5.1) mmol/L Carbon Dioxide (22-30) mmol/L BUN (7-17) mg/dL Glucose (74-99) mg/dL POC Glucose (mg/dL) 115 H 174 H (70-110) mg/dL Microbiology - Last 24 Hours (Table) 02/27/25 08:24 Gram Stain - Preliminary Sputum Sputum Culture - Preliminary
--- NOTE | 2025-02-28 13:57 | P.PN ---
Subjective Progress Note Date: 02/28/25 Principal diagnosis: Acute hypoxic respiratory failure secondary to acute pulmonary edema 54-year-old female patient got transferred to the intensive care unit because of acute respiratory distress, hypoxemia and diminished level of consciousness. The patient was originally hospitalized on 02/20/2025 for generalized weakness and a fall. She has multiple medical problems and comorbidities. I was involved in her care back in 2021 and at that time the patient had a COVID-19 related pneumonia with prolonged respiratory failure requiring a tracheostomy tube insertion and subsequent removal to facilitate her weaning off the mechanical ventilator. She is also known to have coronary artery disease and cardiac catheterization back in 2008 showed minimal CAD, cardiomyopathy and the most recent echocardiogram from August 2023 showed an ejection fraction of 35 to 40% and global LV hypokinesis. The patient also has paroxysmal atrial fibrillation she has a AICD in place. 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 During this current hospitalization, the patient was seen by cardiology. The patient was also seen by neurology and CT of the brain and the neck revealed no evidence of any dissection of the cervical internal carotid artery or vertebral artery. The patient was asked to continue anticoagulation with Eliquis. The patient was asked to continue Keppra 1.5 g twice a day and Tegretol 200 mg 3 times daily and gabapentin 600 mg p.o. 3 times daily regarding her previous history of seizure disorder. The patient was also seen by wound services as the patient has multiple nonhealing ulceration limited to skin breakdown and bullous pemphigoid. Zinc barrier cream was offered to the patient. The patient was also seen by infectious diseases and the patient was offered broad-spectrum antibiotics with vancomycin Overnight, the patient was hypotensive. The patient was given a bolus of fluid and IV albumin. Subsequently, the patient went into acute respiratory distress and the patient was severely hypoxic. She got transferred to the intensive care unit. Immediately, the patient was intubated and placed on the mechanical ventilator due to lack of oxygenation and altered mentation. Reviewed the chest x-ray postintubation and the patient has diffuse bilateral pulmonary infiltrates consistent with acute pulmonary edema. There is large amount of airspace disease bilaterally and suspect small pleural effusion. At this point in time, the patient is still intubated on a mechanical ventilator. Noted she was started on propofol and she was also given a dose of Nimbex to maintain synchrony with the mechanical ventilator and improve oxygenation. She is currently on assist-control mode at rate of 60, tidal volume of 400, FiO2 100% with a PEEP of 16. The most recent blood gases showed a pH of 7.23 with a PCO2 of 63 and PO251. She is currently on propofol running at 30 mcg/kg/min. Cardiac rhythm is sinus. Blood pressure is stable. No pressors. The patient was given Lasix 40 mg IV every 12 hours. Urine output since arrival to the ICU was in order of more than 200 cc an hour. On today's evaluation of 02/24/2025, the patient is being seen for a follow-up. The patient remains intubated on a mechanical ventilator. The patient is currently on propofol running at 30 mcg/kg/min. The patient is currently off paralytics and Nimbex has been discontinued. The patient remains assist-control mode of mechanical ventilation at rate of 24, tidal volume of 400, FiO2 50% with a PEEP of 5. Blood gases show a pH of 7.54 with a HMS748 and PO2 of 188. Chest x-ray shows improvement of bilateral pulmonary edema. The patient remains on a combination of IV cefepime and aztreonam, and vancomycin.. The patient remains on IV Lasix. Fluid balance is -3 L over the past 24 hours and the patient remains hemodynamically stable. The patient is in sinus tachycardia. The patient has no fever. The white cell, 11.3 with a hemoglobin 8.3 and a platelet count of 311. Sodium is at 140, BUN is 17 and a creatinine of 0.54 and potass ium level is at 3.7. The patient remains on anticoagulation with Eliquis 5 mg p.o. twice a day. Rest of the home medications have been resumed. CAT scan of the brain was also performed yesterday and it showed no acute intracranial process. There is a stable remote right large MCA distribution infarct and encephalomalacia. Remote left frontal lobe infarct with encephalomalacia. Echocardiogram was also done on 02/23/2025 and the patient has developed systolic heart failure with a left ventricular ejection fraction of 25 to 30%. There is moderate reduction of the global LV function. There is severe increased left ventricular diastolic volume. There is also mild to moderate mitral regurg itation. No other significant valvular abnormalities has been noted. Remains on Lasix 40 mg IV every 12 hours. Continues to receive wound Care. Seen today on 02/25/2025, patient remains in the ICU, intubated and mechanically ventilated, on assist-control rate of 24 tidal volume 400 FiO2 40% and PEEP of 5. Patient is still requiring pressors/norepinephrine at 0.03 mcg/kg/min she is on Precedex at 0.4 mcg/kg/h patient is on Lasix 40 mg IV push every 12 hours she has E. coli in her urine and she is receiving cefepime and Azactam. Her echocardiogram showed severe LV dysfunction with ejection fraction of 25 to 30% patient was intubated on 02/23, still receiving diuretics. Today I plan to give the patient a trial of weaning with pressure support of 10 and CPAP, however her MIP was very low and I decided to continue pressure support and CPAP as long as possible and hopefully repeat her again and hopefully try to wean today. At this point in time she is not ready for extubation. Chest x-ray is showing evidence of improving pulmonary edema. Her WBC is 9.8 hemoglobin is 8.1 basic metabolic profile is normal except for low potassium of 3.3 BUN is 23 creatinine 0.65. Patient was seen today on 02/26/2025, remains in the ICU, intubated and mechanically ventilated, patient is on pressure support and CPAP mode of mechanical ventilation, she has been on it since yesterday, patient is also on 40% FiO2, weaning parameters seem to be a bit better today compared to yesterday, patient follows simple instructions but she does not open her eyes. She is off norepinephrine she used to be on 0.02 mcg/kg/min, patient is hemodynamically stable at this point, however I am a bit concerned about her mental status especially when she does not open her eyes. Seems to be very weak and frail, I did recommend extubation to a pressure support of 10/5 and FiO2 of 40%. Her labs were all reviewed ABG today showed a pO2 of 110 pCO2 43 pH of 7.47 and this was on CPAP earlier. WBC count is 10.8 hemoglobin 8.7, basic metabolic profile is normal potassium is a bit low at 3.4 renal profile is normal. Chest x-ray continues to show multifocal airspace opacities and stable support lines and tubes. Seen today on 02/27/2025, patient was extubated today to BiPAP, she was marginal to begin with, but I felt we had the best window to extubate yesterday based on all the parameters. Patient remained marginal post extubation, and she required BiPAP at relatively high FiO2. This morning, patient ended up with worsening hypoxia requiring intubation chest x-ray postintubation showed almost near complete opacification of the left lung. Hence I performed bronchoscopy and I was able to suction a mucous plug in the left upper lobe which was most likely in the left mainstem bronchus at the time of the chest x-ray but moved up to the left upper lobe. This was suctioned and follow-up chest x-ray showed significant improvement. Patient is now intubated, mechanically ventilated, she is on assist-control rate of 24 tidal volume 400 FiO2 100% PEEP of 10 however later on I cut down her FiO2 down to 50%. ABG done on 50% FiO2 showed a pO2 of 65 pCO2 48 pH of 7.45 hence we kept the patient on the same vent settings as noted earlier. Patient is also requiring propofol at 60 mg/kg/min IV fluid KVO vital HP at she has now a right brachial arterial line, remains on cefepime. Follow-up chest x-ray post bronchoscopy showed significantly improved aeration of the left lung and also showed stable support lines and tubes. Patient was seen today on 02/28/2025, remains in the ICU, intubated, mechanically ventilated, she is on assist-control rate of 20 tidal volume 400 FiO2 40% and PEEP is 8 I brought down to 5. ABG showed a pO2 of 122 pCO2 48 pH of 7.48. Patient had seizure-like activity earlier this morning, being seen by neurology, EEG is pending. Remains on propofol at 50 mcg/kg/min she is on IV fluid 0.9 normal saline, she is not requiring any pressors, seizure-like activity resp onded well to Ativan earlier. Patient is sedated, her WBC count is 15.8 hemoglobin is 9, basic metabolic profile is normal except for low potassium of 3.4 being addressed accordingly as per protocol. Chest x-ray showed significant improvement compared to yesterday. Objective - Vital Signs Vital signs: Vital Signs Temp 100.9 F H 02/28/25 12:30 Pulse 86 02/28/25 13:00 Resp 23 02/28/25 13:00 BP 112/64 02/28/25 12:00 Pulse Ox 99 02/28/25 13:00 FiO2 40 07/03/25 12:03 Intake & Output 02/27/25 02/28/25 02/28/25 18:59 06:59 18:59 Intake Total 573.087 936 714.066 Output Total 750 920 205 Balance -176.913 16 509.066 Weight 56 kg Intake: IV 276 296 166 0.9 Sodium Chloride 240 160 70 Arterial Line 36 36 21 Cefepime 2 gm In Sodium 100 75 Chloride 0.9% 100 ml @ 25 mls/hr IVPB Q8H [facility] Rx#: [id number] Intake, IV Titration 147.087 200 228.066 Amount Magnesium Sulfate-D5w Pmx 100 1 gm In Dextrose/Water 1 100ml.bag @ 100 mls/hr IVPB ONCE ONE Rx#: [id number] Norepinephrine 8 mg In 5.744 40.252 Sodium Chloride 0.9% 250 ml @ 0.03 MCG/KG/MIN 3. 628 mls/hr IV .Q24H [facility] Rx#:[id number] propofoL 1,000 mg In 141.343 200 69.375 Empty Bag 1 bag @ 15 MCG/ KG/MIN 5.625 mls/hr IV . [id number] [facility] Rx#:[id number] propofoL 1,000 mg In 18.439 Empty Bag 1 bag @ 15 MCG/ KG/MIN 5.625 mls/hr IV . [id number] [facility] Rx#:[id number] Tube Feeding 60 260 260 Other 90 180 60 Output: Urine 750 920 205 Other: Voiding Method Indwelling Catheter Indwelling Catheter Indwelling Catheter ABP, PAP, CO, CI - Last Documented Arterial Blood Pressure 106/44 - Exam GENERAL: Revealed 54-year-old female on mechanical ventilation HEENT: PERRLA, EOMI, nonicteric. Endotracheal tube and orogastric tube are intact CARDIOVASCULAR: S1 and S2 present. No murmurs, rubs, or gallops. PULMONARY: Minimal crackles at the bases no rhonchi no wheezes ABDOMEN: Soft, nontender, nondistended, normoactive bowel sounds. No palpable organomegaly. MUSCULOSKELETAL: No joint swelling or deformity. EXTREMITIES: No cyanosis, clubbing, or pedal edema. Skin:-Friable bullae noted with surrounding erythema -NEUROLOGICAL: Could not assess patient is sedated, on propofol. Psychiatric: Could not fully assess. - Labs CBC & Chem 7: 02/28/25 04:07 02/28/25 11:35 Labs: Abnormal Lab Results - Last 24 Hours (Table) 02/28/25 02/28/25 02/28/25 Range/Units 01:41 04:07 04:07 WBC 15.89 H (4.50-10.00) 10*3/uL RBC 3.39 L (4.10-5.20) 10*6/uL Hgb 9.0 L (12.0-15.0) g/dL Hct 30.5 L (37.2-46.3) % MCH 26.5 L (27.0-32.0) pg MCHC 29.5 L (32.0-37.0) g/dL Immature Gran # 0.08 H (0.00-0.04) 10*3/uL Neutrophils # 13.69 H (1.80-7.70) 10*3/uL Lymphocytes # 0.66 L (0.90-5.00) 10*3/uL Eosinophils # 0.82 H (0.04-0.35) 10*3/uL ABG pH (7.35-7.45) ABG pCO2 (35-45) mmHg ABG pO2 (83-108) mmHg ABG HCO3 (21-25) mmol/L ABG Total CO2 (19-24) mmol/L ABG O2 Saturation (94-97) % Hemoglobin (11.4-16.0) gm/dL Potassium 3.2 L 3.4 L (3.5-5.1) mmol/L Carbon Dioxide 34 H (22-30) mmol/L BUN 28 H (7-17) mg/dL Glucose 136 H (74-99) mg/dL POC Glucose (mg/dL) (70-110) mg/dL 02/28/25 02/28/25 02/28/25 Range/Units 05:19 05:27 11:20 WBC (4.50-10.00) 10*3/uL RBC (4.10-5.20) 10*6/uL Hgb (12.0-15.0) g/dL Hct (37.2-46.3) % MCH (27.0-32.0) pg MCHC (32.0-37.0) g/dL Immature Gran # (0.00-0.04) 10*3/uL Neutrophils # (1.80-7.70) 10*3/uL Lymphocytes # (0.90-5.00) 10*3/uL Eosinophils # (0.04-0.35) 10*3/uL ABG pH 7.48 H (7.35-7.45) ABG pCO2 48 H (35-45) mmHg ABG pO2 122 H (83-108) mmHg ABG HCO3 35 H (21-25) mmol/L ABG Total CO2 37 H (19-24) mmol/L ABG O2 Saturation 98.8 H (94-97) % Hemoglobin 9.3 L (11.4-16.0) gm/dL Potassium (3.5-5.1) mmol/L Carbon Dioxide (22-30) mmol/L BUN (7-17) mg/dL Glucose (74-99) mg/dL POC Glucose (mg/dL) 115 H 174 H (70-110) mg/dL Microbiology - Last 24 Hours (Table) 02/27/25 08:24 Gram Stain - Preliminary Sputum Sputum Culture - Preliminary Assessment and Plan Assessment: Impression: Acute hypoxic respiratory failure secondary to acute pulmonary edema Acute systolic congestive heart failure ejection fraction of 25 to 30% Bullous pemphigoid disease Paroxysmal atrial fibrillation History of seizure disorder Chronic bilateral lower 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 Had to be reintubated on 02/27/2025. Recommendation: Continue ventilatory support Daily interruption of sedation and assessment of mental status and possibly assessment for weaning Continue antibiotics for UTI Continue Lasix 40 mg IV push twice daily Continue amiodarone Continue Eliquis Continue wound care Continue Seroquel Resume nutritional support/enteral feeding Continue GI DVT prophylaxis Patient remains critically ill Critical care time is 32 minutes, considering the overall picture and her multiple comorbidities as noted above, I have a feeling this patient will eventually require tracheostomy and PEG tube placement Time with Patient: Greater than 30
--- NOTE | 2025-02-28 15:59 | P.PN ---
Subjective Progress Note Date: 02/28/25 Today in the morning, the nurse updated our team that she had seizure-like activity and was given 2mg Ativan and aborted seizure and no further seizure. She is intubated and is on ventilator. The daughter is at bedside and does state she has history of stroke with residual left hemiparesis and history of seizures but unsure medications she is on. Objective - Vital Signs Vital signs: Vital Signs Temp 100.9 F H 02/28/25 12:30 Pulse 97 02/28/25 15:00 Resp 22 02/28/25 15:00 BP 112/64 02/28/25 12:00 Pulse Ox 98 02/28/25 15:00 FiO2 40 02/28/25 14:00 Intake & Output 02/27/25 02/28/25 02/28/25 18:59 06:59 18:59 Intake Total 573.087 936 826.315 Output Total 750 920 280 Balance -176.913 16 546.315 Weight 56 kg 56 kg Intake: IV 276 296 192 0.9 Sodium Chloride 240 160 90 Arterial Line 36 36 27 Cefepime 2 gm In Sodium 100 75 Chloride 0.9% 100 ml @ 25 mls/hr IVPB Q8H [facility] Rx#: [id number] Intake, IV Titration 147.087 200 234.315 Amount Magnesium Sulfate-D5w Pmx 100 1 gm In Dextrose/Water 1 100ml.bag @ 100 mls/hr IVPB ONCE ONE Rx#: [id number] Norepinephrine 8 mg In 5.744 46.501 Sodium Chloride 0.9% 250 ml @ 0.03 MCG/KG/MIN 3. 628 mls/hr IV .Q24H [facility] Rx#:[id number] propofoL 1,000 mg In 141.343 200 69.375 Empty Bag 1 bag @ 15 MCG/ KG/MIN 5.625 mls/hr IV . [id number] [facility] Rx#:[id number] propofoL 1,000 mg In 18.439 Empty Bag 1 bag @ 15 MCG/ KG/MIN 5.625 mls/hr IV . [id number] [facility] Rx#:[id number] Tube Feeding 60 260 340 Other 90 180 60 Output: Urine 750 920 280 Other: Voiding Method Indwelling Catheter Indwelling Catheter Indwelling Catheter ABP, PAP, CO, CI - Last Documented Arterial Blood Pressure 128/56 - Exam General: Laying in bed and does not appear in acute distress. Lung: Intubated on a ventilator Neuro: Very limited. Her IV Propofol was held 2.5 hours prior to my examination. She is severely drowsy. Not following commands or attempting to verbalize. I manually opened the eyes and primary gaze is midline, pupils are 4mm and reactive to light. She spontaneously moves the right side and not left side (per daughter her left side is weak at baseline). - Labs CBC & Chem 7: 02/28/25 04:07 02/28/25 11:35 Labs: Abnormal Lab Results - Last 24 Hours (Table) 02/28/25 02/28/25 02/28/25 Range/Units 01:41 04:07 04:07 WBC 15.89 H (4.50-10.00) 10*3/uL RBC 3.39 L (4.10-5.20) 10*6/uL Hgb 9.0 L (12.0-15.0) g/dL Hct 30.5 L (37.2-46.3) % MCH 26.5 L (27.0-32.0) pg MCHC 29.5 L (32.0-37.0) g/dL Immature Gran # 0.08 H (0.00-0.04) 10*3/uL Neutrophils # 13.69 H (1.80-7.70) 10*3/uL Lymphocytes # 0.66 L (0.90-5.00) 10*3/uL Eosinophils # 0.82 H (0.04-0.35) 10*3/uL ABG pH (7.35-7.45) ABG pCO2 (35-45) mmHg ABG pO2 (83-108) mmHg ABG HCO3 (21-25) mmol/L ABG Total CO2 (19-24) mmol/L ABG O2 Saturation (94-97) % Hemoglobin (11.4-16.0) gm/dL Potassium 3.2 L 3.4 L (3.5-5.1) mmol/L Carbon Dioxide 34 H (22-30) mmol/L BUN 28 H (7-17) mg/dL Glucose 136 H (74-99) mg/dL POC Glucose (mg/dL) (70-110) mg/dL 02/28/25 02/28/25 02/28/25 Range/Units 05:19 05:27 11:20 WBC (4.50-10.00) 10*3/uL RBC (4.10-5.20) 10*6/uL Hgb (12.0-15.0) g/dL Hct (37.2-46.3) % MCH (27.0-32.0) pg MCHC (32.0-37.0) g/dL Immature Gran # (0.00-0.04) 10*3/uL Neutrophils # (1.80-7.70) 10*3/uL Lymphocytes # (0.90-5.00) 10*3/uL Eosinophils # (0.04-0.35) 10*3/uL ABG pH 7.48 H (7.35-7.45) ABG pCO2 48 H (35-45) mmHg ABG pO2 122 H (83-108) mmHg ABG HCO3 35 H (21-25) mmol/L ABG Total CO2 37 H (19-24) mmol/L ABG O2 Saturation 98.8 H (94-97) % Hemoglobin 9.3 L (11.4-16.0) gm/dL Potassium (3.5-5.1) mmol/L Carbon Dioxide (22-30) mmol/L BUN (7-17) mg/dL Glucose (74-99) mg/dL POC Glucose (mg/dL) 115 H 174 H (70-110) mg/dL Microbiology - Last 24 Hours (Table) 02/27/25 08:24 Gram Stain - Preliminary Sputum Sputum Culture - Preliminary Assessment and Plan Assessment: * Reported Breakthrough seizure earlier today and aborted with Ativan 2mg. Possible provoke due to underlying infection * Seizure disorder for long time, seizures in remission since 2009 but today had reported seizure-like activity * Acute respiratory failure due to acute pulmonary edema. * Status post accidental fall due to losing balance. Patient denies any presyncopal symptoms, loss of consciousness. She is positive it was not a seizure, just accidental fall due to losing balance. * History of CVA with residual spastic left hemiparesis. * Bullous pemphigoid mainly over lower extremities. Follows up with dermatology. * History of Atrial Fibrillation, on Eliquis. 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 * History of pacemaker. * CHF Plan: * Continue seizure medications including Keppra 1500 mg twice daily, Tegretol 200 mg 3 times daily and gabapentin 600 mg 3 times daily. Because of breakthrough seizure I added Vimpat 50mg bid with one time 100mg once. * CT head rule out any intracranial process. * CTA of head and neck revealed no evidence of dissection of the cervical internal carotid arteries or vertebral arteries or any evidence of significant stenosis at the carotid bifurcations. Moderate stenosis involving the cavernous portion of the internal carotid arteries bilaterally secondary to calcified plaque. No evidence of intracranial aneurysm. * Continue Eliquis 5 mg twice daily for stroke prevention from A-fib. * Hemoglobin A1c 5.6, fasting lipid panel with cholesterol 102, LDL 48, HDL 36 and triglycerides 86. Lipids are well-controlled. * Tegretol 12.8 (4-12) and Keppra 50.6 (3-60). Patient states that she has been on these medications since 2008 tolerating it well. She does not believe rash is from these medications. * For bullous pemphigoid, patient to follow-up with her mechanical repair worker. Patient states mechanical repair worker mentioned that rash was from metoprolol, which they have discontinued. The plan is discussed with patient's daughter who is at bedside. Time with Patient: Less than 30
[2025-02-28] MEDS ORDERED: VANCOMYCIN IV PER PHARMACY 1 EACH MISC MISCELLANE PRN (16:21)
--- NOTE | 2025-02-28 16:21 | P.PN ---
Subjective Progress Note Date: 02/28/25 Principal diagnosis: Reason for follow-up is multiple skin lesion question of cellulitis and multiple antibiotic allergies Patient is a 54-year-old female with a past medical history significant for PE seizure disorder coronary artery disease has been diagnosed with bullous pemphigoid patient has been brought into the hospital concerning for weakness patient did have multiple skin lesions concerning for cellulitis prompting this consultation. On today's evaluation that is 02/28/2025,the patient did spike a fever this morning of 101.6 F patient remains to be debated on the vent with FiO2 40% hemodynamic slightly better no diarrhea or any other change reported white count is up to 15.89 creatinine 0.66 BAL cultures so far pending Objective - Vital Signs Vital signs: Vital Signs Temp 100.9 F H 02/28/25 12:30 Pulse 97 02/28/25 15:00 Resp 22 02/28/25 15:00 BP 112/64 02/28/25 12:00 Pulse Ox 98 02/28/25 15:00 FiO2 40 02/28/25 16:03 Intake & Output 02/27/25 02/28/25 02/28/25 18:59 06:59 18:59 Intake Total 573.087 936 826.315 Output Total 750 920 280 Balance -176.913 16 546.315 Weight 56 kg 56 kg Intake: IV 276 296 192 0.9 Sodium Chloride 240 160 90 Arterial Line 36 36 27 Cefepime 2 gm In Sodium 100 75 Chloride 0.9% 100 ml @ 25 mls/hr IVPB Q8H [facility] Rx#: [id number] Intake, IV Titration 147.087 200 234.315 Amount Magnesium Sulfate-D5w Pmx 100 1 gm In Dextrose/Water 1 100ml.bag @ 100 mls/hr IVPB ONCE ONE Rx#: [id number] Norepinephrine 8 mg In 5.744 46.501 Sodium Chloride 0.9% 250 ml @ 0.03 MCG/KG/MIN 3. 628 mls/hr IV .Q24H [facility] Rx#:[id number] propofoL 1,000 mg In 141.343 200 69.375 Empty Bag 1 bag @ 15 MCG/ KG/MIN 5.625 mls/hr IV . [id number] [facility] Rx#:[id number] propofoL 1,000 mg In 18.439 Empty Bag 1 bag @ 15 MCG/ KG/MIN 5.625 mls/hr IV . [id number] [facility] Rx#:[id number] Tube Feeding 60 260 340 Other 90 180 60 Output: Urine 750 920 280 Other: Voiding Method Indwelling Catheter Indwelling Catheter Indwelling Catheter ABP, PAP, CO, CI - Last Documented Arterial Blood Pressure 128/56 - Exam GENERAL DESCRIPTION: Middle-age female intubated on the vent RESPIRATORY SYSTEM: Unlabored breathing , decreased breath sounds at bases HEART: S1 S2 regular rate and rhythm , ABDOMEN: Soft , no tenderness SKIN: Multiple ulcerated lesions but no drainage - Labs CBC & Chem 7: 02/28/25 04:07 02/28/25 11:35 Labs: Abnormal Lab Results - Last 24 Hours (Table) 02/28/25 02/28/25 02/28/25 Range/Units 01:41 04:07 04:07 WBC 15.89 H (4.50-10.00) 10*3/uL RBC 3.39 L (4.10-5.20) 10*6/uL Hgb 9.0 L (12.0-15.0) g/dL Hct 30.5 L (37.2-46.3) % MCH 26.5 L (27.0-32.0) pg MCHC 29.5 L (32.0-37.0) g/dL Immature Gran # 0.08 H (0.00-0.04) 10*3/uL Neutrophils # 13.69 H (1.80-7.70) 10*3/uL Lymphocytes # 0.66 L (0.90-5.00) 10*3/uL Eosinophils # 0.82 H (0.04-0.35) 10*3/uL ABG pH (7.35-7.45) ABG pCO2 (35-45) mmHg ABG pO2 (83-108) mmHg ABG HCO3 (21-25) mmol/L ABG Total CO2 (19-24) mmol/L ABG O2 Saturation (94-97) % Hemoglobin (11.4-16.0) gm/dL Potassium 3.2 L 3.4 L (3.5-5.1) mmol/L Carbon Dioxide 34 H (22-30) mmol/L BUN 28 H (7-17) mg/dL Glucose 136 H (74-99) mg/dL POC Glucose (mg/dL) (70-110) mg/dL 02/28/25 02/28/25 02/28/25 Range/Units 05:19 05:27 11:20 WBC (4.50-10.00) 10*3/uL RBC (4.10-5.20) 10*6/uL Hgb (12.0-15.0) g/dL Hct (37.2-46.3) % MCH (27.0-32.0) pg MCHC (32.0-37.0) g/dL Immature Gran # (0.00-0.04) 10*3/uL Neutrophils # (1.80-7.70) 10*3/uL Lymphocytes # (0.90-5.00) 10*3/uL Eosinophils # (0.04-0.35) 10*3/uL ABG pH 7.48 H (7.35-7.45) ABG pCO2 48 H (35-45) mmHg ABG pO2 122 H (83-108) mmHg ABG HCO3 35 H (21-25) mmol/L ABG Total CO2 37 H (19-24) mmol/L ABG O2 Saturation 98.8 H (94-97) % Hemoglobin 9.3 L (11.4-16.0) gm/dL Potassium (3.5-5.1) mmol/L Carbon Dioxide (22-30) mmol/L BUN (7-17) mg/dL Glucose (74-99) mg/dL POC Glucose (mg/dL) 115 H 174 H (70-110) mg/dL Microbiology - Last 24 Hours (Table) 02/27/25 08:24 Gram Stain - Preliminary Sputum Sputum Culture - Preliminary Assessment and Plan (1) Skin ulcer of multiple sites Current Visit: Yes Status: Acute Code(s): L98.499 - NON-PRESSURE CHRONIC ULCER OF SKIN OF SITES W UNSP SEVERITY SNOMED Code(s): 85655593 (2) Bullous pemphigoid Current Visit: Yes Status: Acute Code(s): L12.0 - BULLOUS PEMPHIGOID SNOMED Code(s): 98761562 (3) Allergy to multiple antibiotics Current Visit: No Status: Acute Code(s): Z88.1 - ALLERGY STATUS TO OTHER ANTIBIOTIC AGENTS SNOMED Code(s): 763463414 Plan: 1 Patient presented to hospital with fall due to generalized weakness which could be related to possible prerenal as the patient and daughter mention air conditioning for the last few days which has been really hot and the patient will drinking enough fluid patient did have multiple skin lesions but there is no slough tissue no surrounding redness patient not running any fever no elevated white count clinically doubt any active cellulitis 2-multiple antibiotic allergies that would limit the number of antibiotics safe to use 3-patient urine culture positive for drug-resistant E. coli sensitive to ceftriaxone 4patient did have worsening of respiratory status requiring reintubation bronchoscopy concerning for mucous plugging BAL culture so far negative 5with the patient having persistent fever we will start the patient on vancomycin continue with the cefepime and monitor clinical course closely Dictation was produced using [employer] dictation software. please excuse any grammatical, word or spelling errors. Time with Patient: Less than 30
[2025-02-28] MEDS: Lacosamide IV (ages 17+ yrs) 200 MG/20 ML ML IVP STA (16:44)
[2025-02-28] MEDS: VANCOMYCIN 1,250 MG in SODIUM CHLORIDE 0.9% 250 ML IVPB SCH (17:25)
[2025-02-28] MEDS: Lacosamide IV (ages 17+ yrs) 200 MG/20 ML ML IVP SCH (21:49)
--- NOTE | 2025-03-01 02:41 | EEG ---
ELECTROENCEPHALOGRAM REPORT CLINICAL HISTORY: This is a 54-year-old woman with history of seizure, who had breakthrough seizure. The video EEG is obtained to evaluate for seizure epileptiform activity. RELEVANT MEDICATIONS: 1. Ativan. 2. Keppra. 3. Tegretol. 4. Gabapentin. 5. Seroquel. EEG TYPE: Routine 21 channel EEG with video using the 10/20 electrode placement system. DESCRIPTION: The patient is intubated, on a ventilator. Wakefulness is only obtained. The background consists of asa-bk-ymthclpt voltage of 6.5 to 7.5 hertz activity. There was no physiological stage 2 sleep architecture. There is no focal slowing. There is [id number] diffuse myogenic artifact. Interictal and ictal are none. ACTIVATION PROCEDURE: Photic stimulation and hyperventilation are not performed. CLINICAL INTERPRETATION: This is an abnormal routine EEG during the awake state. The background slowing is suggestive of mild encephalopathy. There is no focal slowing, epileptiform discharge, or seizure on the EEG. The lack of epileptiform discharge does not rule out underlying epilepsy. Clinical correlation is recommended. MMODL / IJN: [id number] /
[2025-03-01 05:21] LABS: ABG HCO3 34 mmol/L (21-25); ABG PCO2 49 mmHg (35-45); ABG PH 7.45 (7.35-7.45); ABG PO2 130 mmHg (83-108); ABG TCO2 36 mmol/L (19-24)
[2025-03-01 05:23] LABS: Basophils # (A) 0.04 10*3/uL (0.00-0.10); Basophils % (A) 0.3 %; Eosinophils # (A) 1.53 10*3/uL (0.04-0.35); Eosinophils % (A) 12.4 %; HCT 27.6 % (37.2-46.3); HGB 8.3 g/dL (12.0-15.0); Lymphocytes # (A) 1.07 10*3/uL (0.90-5.00); Lymphocytes % (A) 8.7 %; MCH 27.6 pg (27.0-32.0); MCHC 30.1 g/dL (32.0-37.0); MCV 91.7 fL (80.0-97.0); Monocytes # (A) 0.45 10*3/uL (0.20-1.00); Monocytes % (A) 3.7 %; Neutrophils # (A) 9.11 10*3/uL (1.80-7.70); Neutrophils % (A) 74.2 %; Platelet Count 326 10*3/uL (140-440); RBC 3.01 10*6/uL (4.10-5.20); RDW 17.0 % (11.5-14.5); WBC 12.29 10*3/uL (4.50-10.00)
[2025-03-01 05:35] LABS: African American GFR (CKD) >90 (>60 ml/min/1.73 sqM); Anion Gap 8 mmol/L; Blood Urea Nitrogen 24 mg/dL (7-17); Calcium 8.1 mg/dL (8.4-10.2); Carbon Dioxide 34 mmol/L (22-30); Chloride 105 mmol/L (98-107); Glucose 124 mg/dL (74-99); Non-African American GFR(CKD) >90 (>60 ml/min/1.73 sqM); Potassium 3.6 mmol/L (3.5-5.1); Sodium 147 mmol/L (137-145)
[2025-03-01 06:19] LABS: Allen Test Performed? No
[2025-03-01 06:30] LABS: Glucose,Whole Blood 182 mg/dL (70-110)
[2025-03-01] MEDS: POTASSIUM BICARBONATE/CIT AC 20 MEQ TABLET.EFF NG-TUBE SCH ×2 (07:09→21:07)
--- NOTE | 2025-03-01 07:57 | XR ---
EXAMINATION TYPE: XR chest 1V portable DATE OF EXAM: 03/01/2025 5:08 AM COMPARISON: Chest radiograph from one day prior. CLINICAL INDICATION: Female, 54 years old with history of intubated; [facility] TECHNIQUE: XR chest 1V portable Frontal view of the chest. FINDINGS: Lungs/Pleura: Improved aeration of lungs on today's exam with persistent airspace opacities scattered throughout the lungs. No evidence of pneumothorax or large pleural effusion. Pulmonary vascularity: Unremarkable. Heart/mediastinum: Cardiomediastinal silhouette is unremarkable. Atherosclerotic calcifications are seen in the aorta. Single-lead cardiac conduction device overlying the left hemithorax with lead proj ecting over the right ventricle. Musculoskeletal: No acute osseous pathology. Other findings: None Lines/Tubes: Endotracheal tube with distal tip 4.8 cm above the polo. Nasogastric tube with its distal tip and side-port projecting under the diaphragm. Left internal jugular central venous catheter with distal tip at the cavoatrial junction. IMPRESSION: 1. Similar aeration with persistent multifocal airspace opacities. 2. Stable support lines and tubes. [facility], , 03/01/2025 7:54 AM
[2025-03-01] MEDS: DEXTROSE 5% IN WATER 1,000 ML IV ONE (09:25)
--- NOTE | 2025-03-01 12:49 | P.PN ---
Subjective Progress Note Date: 03/01/25 Principal diagnosis: Acute hypoxic respiratory failure secondary to acute pulmonary edema 54-year-old female patient got transferred to the intensive care unit because of acute respiratory distress, hypoxemia and diminished level of consciousness. The patient was originally hospitalized on 02/20/2025 for generalized weakness and a fall. She has multiple medical problems and comorbidities. I was involved in her care back in 2021 and at that time the patient had a COVID-19 related pneumonia with prolonged respiratory failure requiring a tracheostomy tube insertion and subsequent removal to facilitate her weaning off the mechanical ventilator. She is also known to have coronary artery disease and cardiac catheterization back in 2008 showed minimal CAD, cardiomyopathy and the most recent echocardiogram from August 2023 showed an ejection fraction of 35 to 40% and global LV hypokinesis. The patient also has paroxysmal atrial fibrillation she has a AICD in place. 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 During this current hospitalization, the patient was seen by cardiology. The patient was also seen by neurology and CT of the brain and the neck revealed no evidence of any dissection of the cervical internal carotid artery or vertebral artery. The patient was asked to continue anticoagulation with Eliquis. The patient was asked to continue Keppra 1.5 g twice a day and Tegretol 200 mg 3 times daily and gabapentin 600 mg p.o. 3 times daily regarding her previous history of seizure disorder. The patient was also seen by wound services as the patient has multiple nonhealing ulceration limited to skin breakdown and bullous pemphigoid. Zinc barrier cream was offered to the patient. The patient was also seen by infectious diseases and the patient was offered broad-spectrum antibiotics with vancomycin Overnight, the patient was hypotensive. The patient was given a bolus of fluid and IV albumin. Subsequently, the patient went into acute respiratory distress and the patient was severely hypoxic. She got transferred to the intensive care unit. Immediately, the patient was intubated and placed on the mechanical ventilator due to lack of oxygenation and altered mentation. Reviewed the chest x-ray postintubation and the patient has diffuse bilateral pulmonary infiltrates consistent with acute pulmonary edema. There is large amount of airspace disease bilaterally and suspect small pleural effusion. At this point in time, the patient is still intubated on a mechanical ventilator. Noted she was started on propofol and she was also given a dose of Nimbex to maintain synchrony with the mechanical ventilator and improve oxygenation. She is currently on assist-control mode at rate of 60, tidal volume of 400, FiO2 100% with a PEEP of 16. The most recent blood gases showed a pH of 7.23 with a PCO2 of 63 and PO251. She is currently on propofol running at 30 mcg/kg/min. Cardiac rhythm is sinus. Blood pressure is stable. No pressors. The patient was given Lasix 40 mg IV every 12 hours. Urine output since arrival to the ICU was in order of more than 200 cc an hour. On today's evaluation of 02/24/2025, the patient is being seen for a follow-up. The patient remains intubated on a mechanical ventilator. The patient is currently on propofol running at 30 mcg/kg/min. The patient is currently off paralytics and Nimbex has been discontinued. The patient remains assist-control mode of mechanical ventilation at rate of 24, tidal volume of 400, FiO2 50% with a PEEP of 5. Blood gases show a pH of 7.54 with a BWK744 and PO2 of 188. Chest x-ray shows improvement of bilateral pulmonary edema. The patient remains on a combination of IV cefepime and aztreonam, and vancomycin.. The patient remains on IV Lasix. Fluid balance is -3 L over the past 24 hours and the patient remains hemodynamically stable. The patient is in sinus tachycardia. The patient has no fever. The white cell, 11.3 with a hemoglobin 8.3 and a platelet count of 311. Sodium is at 140, BUN is 17 and a creatinine of 0.54 and potass ium level is at 3.7. The patient remains on anticoagulation with Eliquis 5 mg p.o. twice a day. Rest of the home medications have been resumed. CAT scan of the brain was also performed yesterday and it showed no acute intracranial process. There is a stable remote right large MCA distribution infarct and encephalomalacia. Remote left frontal lobe infarct with encephalomalacia. Echocardiogram was also done on 02/23/2025 and the patient has developed systolic heart failure with a left ventricular ejection fraction of 25 to 30%. There is moderate reduction of the global LV function. There is severe increased left ventricular diastolic volume. There is also mild to moderate mitral regurg itation. No other significant valvular abnormalities has been noted. Remains on Lasix 40 mg IV every 12 hours. Continues to receive wound Care. Seen today on 02/25/2025, patient remains in the ICU, intubated and mechanically ventilated, on assist-control rate of 24 tidal volume 400 FiO2 40% and PEEP of 5. Patient is still requiring pressors/norepinephrine at 0.03 mcg/kg/min she is on Precedex at 0.4 mcg/kg/h patient is on Lasix 40 mg IV push every 12 hours she has E. coli in her urine and she is receiving cefepime and Azactam. Her echocardiogram showed severe LV dysfunction with ejection fraction of 25 to 30% patient was intubated on 02/23, still receiving diuretics. Today I plan to give the patient a trial of weaning with pressure support of 10 and CPAP, however her MIP was very low and I decided to continue pressure support and CPAP as long as possible and hopefully repeat her again and hopefully try to wean today. At this point in time she is not ready for extubation. Chest x-ray is showing evidence of improving pulmonary edema. Her WBC is 9.8 hemoglobin is 8.1 basic metabolic profile is normal except for low potassium of 3.3 BUN is 23 creatinine 0.65. Patient was seen today on 02/26/2025, remains in the ICU, intubated and mechanically ventilated, patient is on pressure support and CPAP mode of mechanical ventilation, she has been on it since yesterday, patient is also on 40% FiO2, weaning parameters seem to be a bit better today compared to yesterday, patient follows simple instructions but she does not open her eyes. She is off norepinephrine she used to be on 0.02 mcg/kg/min, patient is hemodynamically stable at this point, however I am a bit concerned about her mental status especially when she does not open her eyes. Seems to be very weak and frail, I did recommend extubation to a pressure support of 10/5 and FiO2 of 40%. Her labs were all reviewed ABG today showed a pO2 of 110 pCO2 43 pH of 7.47 and this was on CPAP earlier. WBC count is 10.8 hemoglobin 8.7, basic metabolic profile is normal potassium is a bit low at 3.4 renal profile is normal. Chest x-ray continues to show multifocal airspace opacities and stable support lines and tubes. Seen today on 02/27/2025, patient was extubated today to BiPAP, she was marginal to begin with, but I felt we had the best window to extubate yesterday based on all the parameters. Patient remained marginal post extubation, and she required BiPAP at relatively high FiO2. This morning, patient ended up with worsening hypoxia requiring intubation chest x-ray postintubation showed almost near complete opacification of the left lung. Hence I performed bronchoscopy and I was able to suction a mucous plug in the left upper lobe which was most likely in the left mainstem bronchus at the time of the chest x-ray but moved up to the left upper lobe. This was suctioned and follow-up chest x-ray showed significant improvement. Patient is now intubated, mechanically ventilated, she is on assist-control rate of 24 tidal volume 400 FiO2 100% PEEP of 10 however later on I cut down her FiO2 down to 50%. ABG done on 50% FiO2 showed a pO2 of 65 pCO2 48 pH of 7.45 hence we kept the patient on the same vent settings as noted earlier. Patient is also requiring propofol at 60 mg/kg/min IV fluid KVO vital HP at she has now a right brachial arterial line, remains on cefepime. Follow-up chest x-ray post bronchoscopy showed significantly improved aeration of the left lung and also showed stable support lines and tubes. Patient was seen today on 02/28/2025, remains in the ICU, intubated, mechanically ventilated, she is on assist-control rate of 20 tidal volume 400 FiO2 40% and PEEP is 8 I brought down to 5. ABG showed a pO2 of 122 pCO2 48 pH of 7.48. Patient had seizure-like activity earlier this morning, being seen by neurology, EEG is pending. Remains on propofol at 50 mcg/kg/min she is on IV fluid 0.9 normal saline, she is not requiring any pressors, seizure-like activity respond ed well to Ativan earlier. Patient is sedated, her WBC count is 15.8 hemoglobin is 9, basic metabolic profile is normal except for low potassium of 3.4 being addressed accordingly as per protocol. Chest x-ray showed significant improvement compared to yesterday. Patient was seen today on , patient remains in the ICU intubated mechanically ventilated, on assist-control rate of 20 tidal volume 400 FiO2 40% PEEP of 5 ABG showed a pO2 of 130 pCO2 49 pH of 7.45 hence no changes made in her vent settings. Patient remains on norepinephrine at 0.09 mcg/kg/min also on propofol at 40 mcg/kg/min vital HP at 58 mL/h and her D5W is at 50 mL/h. Slight increase noted in her sodium up to 147 today. Sputum is positive for MSSA urine is positive for E. coli patient is still on cefepime and vancomycin. She is remains on Eliquis, I went ahead today and discontinued her Lasix. Chest x-ray showed no evidence of pulmonary edema, but she does have multifocal opacities more so in the right lower lobe suspicious for pneumonia. Objective - Vital Signs Vital signs: Vital Signs Temp 101.9 F H 03/01/25 12:30 Pulse 102 H 03/01/25 12:30 Resp 24 03/01/25 12:30 BP 157/81 03/01/25 05:00 Pulse Ox 98 03/01/25 12:30 FiO2 40 03/01/25 12:30 Intake & Output 02/28/25 03/01/25 03/01/25 18:59 06:59 18:59 Intake Total 1454.241 855.928 804.450 Output Total 425 740 360 Balance 1029.241 115.928 444.450 Weight 56 kg Intake: IV 304 33 105 0.9 Sodium Chloride 140 0 40 Arterial Line 39 33 15 Cefepime 2 gm In Sodium 125 50 Chloride 0.9% 100 ml @ 25 mls/hr IVPB Q8H [facility] Rx#: [id number] Intake, IV Titration 500.241 142.928 349.450 Amount Dextrose 5% in Water 1, 100 000 ml @ 50 mls/hr IV . Q20H [facility] Rx#:[id number] Magnesium Sulfate-D5w Pmx 100 1 gm In Dextrose/Water 1 100ml.bag @ 100 mls/hr IVPB ONCE [facility] Rx#: [id number] Norepinephrine 8 mg In 52.427 4.273 157.356 Sodium Chloride 0.9% 250 ml @ 0.03 MCG/KG/MIN 3. 628 mls/hr IV .Q24H [facility] Rx#:[id number] Vancomycin 1,250 mg In 260 Sodium Chloride 0.9% 250 ml @ 125 mls/hr IVPB Q12H [facility] Rx#:[id number] propofoL 1,000 mg In 69.375 Empty Bag 1 bag @ 15 MCG/ KG/MIN 5.625 mls/hr IV . [id number] [facility] Rx#:[id number] propofoL 1,000 mg In 18.439 138.655 92.094 Empty Bag 1 bag @ 15 MCG/ KG/MIN 5.625 mls/hr IV . [id number] [facility] Rx#:[id number] Tube Feeding 540 590 290 Lipid 20 0.9 Sodium Chloride 20 Other 90 90 60 Output: Urine 425 740 360 Other: Voiding Method Indwelling Catheter Indwelling Catheter ABP, PAP, CO, CI - Last Documented Arterial Blood Pressure 107/45 - Exam GENERAL: Revealed 54-year-old female on mechanical ventilation HEENT: PERRLA, EOMI, nonicteric. Endotracheal tube and orogastric tube are intact CARDIOVASCULAR: S1 and S2 present. No murmurs, rubs, or gallops. PULMONARY: Symmetrical chest expansion good breath sound bilaterally no rhonchi no wheezes ABDOMEN: Soft, nontender, nondistended, normoactive bowel sounds. No palpable organomegaly. MUSCULOSKELETAL: No joint swelling or deformity. EXTREMITIES: No cyanosis, clubbing, or pedal edema. Skin:-Friable bullae noted with surrounding erythema -NEUROLOGICAL: Could not assess patient is sedated, on propofol. Psychiatric: Could not fully assess. - Labs CBC & Chem 7: 03/01/25 04:55 03/01/25 04:55 Labs: Abnormal Lab Results - Last 24 Hours (Table) 03/01/25 03/01/25 03/01/25 Range/Units 04:55 04:55 05:21 WBC 12.29 H (4.50-10.00) 10*3/uL RBC 3.01 L (4.10-5.20) 10*6/uL Hgb 8.3 L (12.0-15.0) g/dL Hct 27.6 L (37.2-46.3) % MCHC 30.1 L (32.0-37.0) g/dL Immature Gran # 0.09 H (0.00-0.04) 10*3/uL Neutrophils # 9.11 H (1.80-7.70) 10*3/uL Eosinophils # 1.53 H (0.04-0.35) 10*3/uL ABG pCO2 49 H (35-45) mmHg ABG pO2 130 H (83-108) mmHg ABG HCO3 34 H (21-25) mmol/L ABG Total CO2 36 H (19-24) mmol/L ABG O2 Saturation 99.0 H (94-97) % Hemoglobin 8.3 L (11.4-16.0) gm/dL Sodium 147 H (137-145) mmol/L Carbon Dioxide 34 H (22-30) mmol/L BUN 24 H (7-17) mg/dL Glucose 124 H (74-99) mg/dL POC Glucose (mg/dL) (70-110) mg/dL Calcium 8.1 L (8.4-10.2) mg/dL 03/01/25 Range/Units 06:29 WBC (4.50-10.00) 10*3/uL RBC (4.10-5.20) 10*6/uL Hgb (12.0-15.0) g/dL Hct (37.2-46.3) % MCHC (32.0-37.0) g/dL Immature Gran # (0.00-0.04) 10*3/uL Neutrophils # (1.80-7.70) 10*3/uL Eosinophils # (0.04-0.35) 10*3/uL ABG pCO2 (35-45) mmHg ABG pO2 (83-108) mmHg ABG HCO3 (21-25) mmol/L ABG Total CO2 (19-24) mmol/L ABG O2 Saturation (94-97) % Hemoglobin (11.4-16.0) gm/dL Sodium (137-145) mmol/L Carbon Dioxide (22-30) mmol/L BUN (7-17) mg/dL Glucose (74-99) mg/dL POC Glucose (mg/dL) 182 H (70-110) mg/dL Calcium (8.4-10.2) mg/dL Microbiology - Last 24 Hours (Table) 02/27/25 08:24 Gram Stain - Final Sputum Sputum Culture - Final 02/23/25 15:35 Blood Culture - Final Blood 02/27/25 09:02 Blood Culture - Preliminary Blood Assessment and Plan Assessment: Impression: Acute hypoxic respiratory failure secondary to acute pulmonary edema Acute systolic congestive heart failure ejection fraction of 25 to 30% Bullous pemphigoid disease Paroxysmal atrial fibrillation History of seizure disorder Chronic bilateral lower 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 Had to be reintubated on 02/27/2025. Multifocal opacities noted on chest x-ray today suggestive of MSSA pneumonia with positive sputum cultures for MSSA. In the meantime patient remains on vancomycin and cefepime cultures are being addressed by infectious disease on the case. Recommendation: Continue ventilatory support Daily interruption of sedation Continue antibiotics Hold Lasix for now. Continue amiodarone Continue Eliquis Continue wound care Continue Seroquel Continue nutritional support/enteral feeding presently on vital HP at goal Continue GI DVT prophylaxis Patient remains critically ill If no significant improvement noted in the next few days patient may have to be considered for tracheostomy and PEG tube placement patient failed extubation once Critical care time is 33 minutes Time with Patient: Greater than 30
--- NOTE | 2025-03-01 13:31 | P.PN ---
Subjective Progress Note Date: 03/01/25 I am following up with the patient and she is accompanied with her sister. Per the ICU nurse no further seizures overnight reported or today. She continues to be intubated on a ventilator. Her IV propofol has been held for 2 hours prior to my examination. Objective - Vital Signs Vital signs: Vital Signs Temp 101.9 F H 03/01/25 12:30 Pulse 102 H 03/01/25 12:30 Resp 24 03/01/25 12:30 BP 157/81 03/01/25 05:00 Pulse Ox 98 03/01/25 12:30 FiO2 40 03/01/25 12:54 Intake & Output 02/28/25 03/01/25 03/01/25 18:59 06:59 18:59 Intake Total 1454.241 917.677 4658.869 Output Total 425 740 560 Balance 1029.241 115.928 495.869 Weight 56 kg Intake: IV 304 33 138 0.9 Sodium Chloride 140 0 40 Arterial Line 39 33 21 Cefepime 2 gm In Sodium 125 77 Chloride 0.9% 100 ml @ 25 mls/hr IVPB Q8H [facility] Rx#: [id number] Intake, IV Titration 500.241 142.928 451.869 Amount Dextrose 5% in Water 1, 200 000 ml @ 50 mls/hr IV . Q20H ONE Rx#:[id number] Magnesium Sulfate-D5w Pmx 100 1 gm In Dextrose/Water 1 100ml.bag @ 100 mls/hr IVPB ONCE ONE Rx#: [id number] Norepinephrine 8 mg In 52.427 4.273 159.775 Sodium Chloride 0.9% 250 ml @ 0.03 MCG/KG/MIN 3. 628 mls/hr IV .Q24H [facility] Rx#:[id number] Vancomycin 1,250 mg In 260 Sodium Chloride 0.9% 250 ml @ 125 mls/hr IVPB Q12H [facility] Rx#:[id number] propofoL 1,000 mg In 69.375 Empty Bag 1 bag @ 15 MCG/ KG/MIN 5.625 mls/hr IV . [id number] [facility] Rx#:[id number] propofoL 1,000 mg In 18.439 138.655 92.094 Empty Bag 1 bag @ 15 MCG/ KG/MIN 5.625 mls/hr IV . [id number] [facility] Rx#:[id number] Tube Feeding 540 590 406 Lipid 20 0.9 Sodium Chloride 20 Other 90 90 60 Output: Urine 425 740 560 Other: Voiding Method Indwelling Catheter Indwelling Catheter ABP, PAP, CO, CI - Last Documented Arterial Blood Pressure 107/45 - Exam General: Laying in bed and does not appear in acute distress. Lung: Intubated on a ventilator Neuro: Very limited. Her IV Propofol was held 2 hours prior to my examination. She is severely drowsy. Not following commands or attempting to verbalize. I manually opened the eyes and primary gaze is midline, pupils are 4mm and reactive to light. She spontaneously moves the right side and not left side (baseline). - Labs CBC & Chem 7: 03/01/25 04:55 03/01/25 04:55 Labs: Abnormal Lab Results - Last 24 Hours (Table) 03/01/25 03/01/25 03/01/25 Range/Units 04:55 04:55 05:21 WBC 12.29 H (4.50-10.00) 10*3/uL RBC 3.01 L (4.10-5.20) 10*6/uL Hgb 8.3 L (12.0-15.0) g/dL Hct 27.6 L (37.2-46.3) % MCHC 30.1 L (32.0-37.0) g/dL Immature Gran # 0.09 H (0.00-0.04) 10*3/uL Neutrophils # 9.11 H (1.80-7.70) 10*3/uL Eosinophils # 1.53 H (0.04-0.35) 10*3/uL ABG pCO2 49 H (35-45) mmHg ABG pO2 130 H (83-108) mmHg ABG HCO3 34 H (21-25) mmol/L ABG Total CO2 36 H (19-24) mmol/L ABG O2 Saturation 99.0 H (94-97) % Hemoglobin 8.3 L (11.4-16.0) gm/dL Sodium 147 H (137-145) mmol/L Carbon Dioxide 34 H (22-30) mmol/L BUN 24 H (7-17) mg/dL Glucose 124 H (74-99) mg/dL POC Glucose (mg/dL) (70-110) mg/dL Calcium 8.1 L (8.4-10.2) mg/dL 03/01/25 Range/Units 06:29 WBC (4.50-10.00) 10*3/uL RBC (4.10-5.20) 10*6/uL Hgb (12.0-15.0) g/dL Hct (37.2-46.3) % MCHC (32.0-37.0) g/dL Immature Gran # (0.00-0.04) 10*3/uL Neutrophils # (1.80-7.70) 10*3/uL Eosinophils # (0.04-0.35) 10*3/uL ABG pCO2 (35-45) mmHg ABG pO2 (83-108) mmHg ABG HCO3 (21-25) mmol/L ABG Total CO2 (19-24) mmol/L ABG O2 Saturation (94-97) % Hemoglobin (11.4-16.0) gm/dL Sodium (137-145) mmol/L Carbon Dioxide (22-30) mmol/L BUN (7-17) mg/dL Glucose (74-99) mg/dL POC Glucose (mg/dL) 182 H (70-110) mg/dL Calcium (8.4-10.2) mg/dL Microbiology - Last 24 Hours (Table) 02/27/25 08:24 Gram Stain - Final Sputum Sputum Culture - Final 02/23/25 15:35 Blood Culture - Final Blood 02/27/25 09:02 Blood Culture - Preliminary Blood Assessment and Plan Assessment: * Reported Breakthrough seizure earlier today and aborted with Ativan 2mg. Possible provoke due to underlying infection---No further seizures in 24 hours. * Seizure disorder for long time, seizures in remission since 2009 but today had reported seizure-like activity * Acute respiratory failure due to acute pulmonary edema. * Status post accidental fall due to losing balance. Patient denies any presyncopal symptoms, loss of consciousness. She is positive it was not a seizure, just accidental fall due to losing balance. * History of CVA with residual spastic left hemiparesis. * Bullous pemphigoid mainly over lower extremities. Follows up with nya aguillon. * History of Atrial Fibrillation, on Eliquis. 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 * History of pacemaker. * CHF Plan: * Continue seizure medications including Keppra 1500 mg twice daily, Tegretol 200 mg 3 times daily and gabapentin 600 mg 3 times daily. Because of breakthrough seizure I added Vimpat 50mg bid with one time 100mg once on 02/28/2025. * EEG: Is abnormal. The background slowing is suggestive of mild encephalopathy. There is no focal slowing, epileptiform discharge or seizure on the EEG. * CTA of head and neck revealed no evidence of dissection of the cervical internal carotid arteries or vertebral arteries or any evidence of significant stenosis at the carotid bifurcations. Moderate stenosis involving the cave rnous portion of the internal carotid arteries bilaterally secondary to calcified plaque. No evidence of intracranial aneurysm. * Continue Eliquis 5 mg twice daily for stroke prevention from A-fib. * Hemoglobin A1c 5.6, fasting lipid panel with cholesterol 102, LDL 48, HDL 36 and triglycerides 86. Lipids are well-controlled. * Tegretol 12.8 (4-12) and Keppra 50.6 (3-60). Patient states that she has been on these medications since 2008 tolerating it well. She does not believe rash is from these medications. * For bullous pemphigoid, patient to follow-up with her operative supervisor. Patient states operative supervisor mentioned that rash was from metoprolol, which they have discontinued. The plan is discussed with patient's sister who is at bedside. Will follow-up with patient sporadically. Dr. Wong will resume neurology service this and Dr. Chua will resume this Tuesday A.M. Time with Patient: Less than 30
--- NOTE | 2025-03-01 14:04 | P.PN ---
Subjective Progress Note Date: 03/01/25 The patient was seen this morning. She continues to be intubated on mechanical ventilation she continues to be hemodynamically stable requiring norepinephrine but she is requiring less norepinephrine compared to before. Urine output continues to be marginal. She is on Lasix IV at 40 mg twice daily. She is not on any cardiomyopathy medications because of the hemodynamical instability and requiring norepinephrine. The echo showed an EF between 25 to 30%. The physical examination is remarkable for intubated patient on mechanical ventilation with diminished breathing sounds bilaterally and regular rate and rhythm. February 26, 2025 The patient was seen and evaluated this morning. She continues to be intubated. She is still on Lasix IV. The pressure still low requiring norepinephrine but we are coming down with a dose. The chest x-ray was reviewed this morning and seems to be overall better in terms of fluid overload. We potentially can come down with a dose of IV Lasix and possible wean the patient off from norepinephrine. The physical examination is remarkable for regular rhythm with diminished breathing sounds bilaterally and mild bilateral lower extremity edema and skin changes noted. She is on oral anticoagulation. February 27, 2025 The patient was seen and evaluated this morning. She was extubated yesterday and then she reintubated again because she developed hypoxic respiratory failure. The chest x-ray showed complete opacification of the left lung. She is in process of having possible bronchoscopy. Hemodynamically she remains unstable requiring small dose of norepinephrine. The physical examination is remarkable for regular rate and rhythm with a systolic murmur at the right and left upper sternal border and wheezing was noted also. February 28, 2025 The patient was seen and evaluated this morning. She underwent bronchoscopy yesterday. The chest x-ray today appears to be better. The complete opacification of the left lung has resolved completely. Currently she is intubated on mechanical ventilation. She is off norepinephrine at this point and hemodynamically stable and maintaining normal sinus mechanism. Physical examination is remarkable for regular rhythm with a systolic murmur at the right upper sternal border and clear breathing sounds bilaterally and no edema was noted in the lower extremities with extensive skin rash. March 01, 2025 Intubed and sedated. She is back on levophed. + fever, cxr ok Assessment Acute hypoxic respiratory failure Severe cardiomyopathy Heart failure with reduced ejection fraction Paroxysmal atrial fibrillation Sinus rhythm at this point Multiple comorbid conditions including anemia Plan: Recommend continuing the current medical regimen Continue oral anticoagulation and amiodarone Continue monitor the kidney function and electrolytes and hemoglobin Consider restarting the patient's back on cardiomyopathy medication once she is off norepinephrine Further recommendations pending clinic course Pt seen and examined in rounds with Dr. Garibay Signing provider agrees with the documented findings, assessment, and plan of care documented by [employer] as a scribe. Objective - Vital Signs Vital signs: Vital Signs Temp 101.9 F H 03/01/25 12:30 Pulse 102 H 03/01/25 12:30 Resp 24 03/01/25 12:30 BP 157/81 03/01/25 05:00 Pulse Ox 98 03/01/25 12:30 FiO2 40 03/01/25 12:54 Intake & Output 02/28/25 03/01/25 03/01/25 18:59 06:59 18:59 Intake Total 1454.241 251.970 9527.869 Output Total 425 740 560 Balance 1029.241 115.928 495.869 Weight 56 kg Intake: IV 304 33 138 0.9 Sodium Chloride 140 0 40 Arterial Line 39 33 21 Cefepime 2 gm In Sodium 125 77 Chloride 0.9% 100 ml @ 25 mls/hr IVPB Q8H [facility] Rx#: [id number] Intake, IV Titration 500.241 142.928 451.869 Amount Dextrose 5% in Water 1, 200 000 ml @ 50 mls/hr IV . Q20H [facility] Rx#:[id number] Magnesium Sulfate-D5w Pmx 100 1 gm In Dextrose/Water 1 100ml.bag @ 100 mls/hr IVPB ONCE [facility] Rx#: [id number] Norepinephrine 8 mg In 52.427 4.273 159.775 Sodium Chloride 0.9% 250 ml @ 0.03 MCG/KG/MIN 3. 628 mls/hr IV .Q24H [facility] Rx#:[id number] Vancomycin 1,250 mg In 260 Sodium Chloride 0.9% 250 ml @ 125 mls/hr IVPB Q12H [facility] Rx#:[id number] propofoL 1,000 mg In 69.375 Empty Bag 1 bag @ 15 MCG/ KG/MIN 5.625 mls/hr IV . [id number] [facility] Rx#:[id number] propofoL 1,000 mg In 18.439 138.655 92.094 Empty Bag 1 bag @ 15 MCG/ KG/MIN 5.625 mls/hr IV . [id number] [facility] Rx#:[id number] Tube Feeding 540 590 406 Lipid 20 0.9 Sodium Chloride 20 Other 90 90 60 Output: Urine 425 740 560 Other: Voiding Method Indwelling Catheter Indwelling Catheter ABP, PAP, CO, CI - Last Documented Arterial Blood Pressure 107/45 - Labs CBC & Chem 7: 03/01/25 04:55 03/01/25 04:55 Labs: Abnormal Lab Results - Last 24 Hours (Table) 03/01/25 03/01/25 03/01/25 Range/Units 04:55 04:55 05:21 WBC 12.29 H (4.50-10.00) 10*3/uL RBC 3.01 L (4.10-5.20) 10*6/uL Hgb 8.3 L (12.0-15.0) g/dL Hct 27.6 L (37.2-46.3) % MCHC 30.1 L (32.0-37.0) g/dL Immature Gran # 0.09 H (0.00-0.04) 10*3/uL Neutrophils # 9.11 H (1.80-7.70) 10*3/uL Eosinophils # 1.53 H (0.04-0.35) 10*3/uL ABG pCO2 49 H (35-45) mmHg ABG pO2 130 H (83-108) mmHg ABG HCO3 34 H (21-25) mmol/L ABG Total CO2 36 H (19-24) mmol/L ABG O2 Saturation 99.0 H (94-97) % Hemoglobin 8.3 L (11.4-16.0) gm/dL Sodium 147 H (137-145) mmol/L Carbon Dioxide 34 H (22-30) mmol/L BUN 24 H (7-17) mg/dL Glucose 124 H (74-99) mg/dL POC Glucose (mg/dL) (70-110) mg/dL Calcium 8.1 L (8.4-10.2) mg/dL 03/01/25 Range/Units 06:29 WBC (4.50-10.00) 10*3/uL RBC (4.10-5.20) 10*6/uL Hgb (12.0-15.0) g/dL Hct (37.2-46.3) % MCHC (32.0-37.0) g/dL Immature Gran # (0.00-0.04) 10*3/uL Neutrophils # (1.80-7.70) 10*3/uL Eosinophils # (0.04-0.35) 10*3/uL ABG pCO2 (35-45) mmHg ABG pO2 (83-108) mmHg ABG HCO3 (21-25) mmol/L ABG Total CO2 (19-24) mmol/L ABG O2 Saturation (94-97) % Hemoglobin (11.4-16.0) gm/dL Sodium (137-145) mmol/L Carbon Dioxide (22-30) mmol/L BUN (7-17) mg/dL Glucose (74-99) mg/dL POC Glucose (mg/dL) 182 H (70-110) mg/dL Calcium (8.4-10.2) mg/dL Microbiology - Last 24 Hours (Table) 02/27/25 08:24 Gram Stain - Final Sputum Sputum Culture - Final 02/23/25 15:35 Blood Culture - Final Blood 02/27/25 09:02 Blood Culture - Preliminary Blood
--- NOTE | 2025-03-01 15:27 | P.PN ---
Subjective Progress Note Date: 03/01/25 This is a pleasant 54 years old female who was recently diagnosed with bullous pemphigoid 3 months ago when she is sent from this facility to [facility], she had a biopsy followed by treatment with doxycycline and taper prednisone over 3 weeks. Also she has extensive long history of CHF and seizure disorder. She was previously in the ICU for severe sepsis. Now presents because of generalized weakness. Patient states she went and fell today while she was trying to get up to go to the restroom she found a green chair on her way she was too weak to move with so she fell on her buttocks she could not get up as usual so she called the family who helped her and called EMS. Patient stayed on the floor for about 25 minutes as she explains. Denies any abdominal pain vomiting or diarrhea Denies dysuria urgency but states she has not been since yesterday and she has been drinking a lot of water for this reason Denies chest pain or dyspnea or coughing. No headache dizziness She is a known case of previous stroke and severe left hemiparesis, patient states it is worse than before this time. Also there was some concern from some slurred speech but no double vision. Patient complains from feeling swollen in her legs She has extensive bullous disease, majority of them are ruptured throughout her trunk and extremities and there is surrounding with erythema more extensive edema in the lower extremities bilaterally. However there is no purulent discharge. 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 Noriega neurologist is Dr. quiroz Patient with no fever blood pressure slightly on the low side but patient is symptomatic Blood pressure is fluctuation slightly on the low side Hemoglobin 10 WBC normal 8.6. Rest of labs unremarkable including electrolytes proBNP 1740 CT of the head and neck showing moderate stenosis of bilateral internal carotid arteries CT of the brain showing remote right large MCA territory infarct with encephalomalacia and remote left frontal infarct with encephalomalacia and bilateral cerebellar encephalomalacia Chest x-ray showing mild interstitial prominence may be bronchitis rule out mild pulmonary vascular congestion 02/21 Patient awake alert She looks hypovolemic with positive orthostatic vitals, yesterday we will give her a bolus of 500 cc. Albumin dropped from 2.7 down to 2.0. Patient has slightly worse leg swelling. She has multiple friable and ruptured bullae on the trunk and extremities with mild erythema surrounding these bullae especially in the lower extremities. These are chronic for the last 3 months diagnosed with bullous pemphigoid. Patient states that she took the steroids and that did not help much. She denies chest pain or dyspnea. No abdominal pain or vomiting. Patient currently not on antibiotics per ID team recommendation to keep monitoring while off antibiotics. No fever. Patient was on doxycycline for her bullous lesions at [facility] not sure if she needed for now, keep holding doxycycline. Cardiology is going to evaluate the patient. Neurology service also on the case however patient has chronic hemiplegia, and this morning she is not sure if it is left hemiplegia is at baseline or worse, however is severe and does not make much difference. No slurred speech no blurry vision. 02/22 Patient is looks tired lethargic Kirlin in bed and was shivering in the morning and developing fever also she is tachycardic and blood pressure is soft No chest pain or abdominal pain Still has erythema and swelling of both lower extremities suspected secondary to cellulitis, MRSA suspected and currently she is on IV vancomycin with infectious disease team recommendation She has good urine output and creatinine within the reference range. We give her a bolus of albumin given her hypoalbuminemia also if blood pressure remains low may consider a bolus of normal saline later on Midodrine was prescribed on admission as needed for hypotension but was not given by staff despite low blood pressure therefore we are going to switch it to standing dose Monitor labs and electrolytes and vitals closely 02/23 Patient yesterday was found unresponsive on the floor and there was foam in her mouth A team was called Patient got intubated and placed on mechanical ventilation transferred to the ICU. Patient currently intubated and sedated. Yesterday patient was hypotensive and tachycardic and altered mental status. This morning required Levophed 02/23 Patient remains in the ICU intubated and sedated, PEEP is 5 improved Female family member at bedside. Patient earlier was able to work She opened eyes and tried to communicate and she could recognize the family member, she was anxious as per family Patient required small dose of pressors earlier Continue on same antibiotics as per infectious disease team Off IV fluid Echocardiogram showed ejection fraction of 25 to 30% Increased left ventricular mass with very severe LV dysfunction Sputum culture growing Staph aureus pansensitive he Patient's rash of the lower extremity is significantly improved Discussed the case with pulmonary team 02/25. Patient seen and examined. Patient continues to be intubated 02/26. Patient seen and examined. Labs done this morning showed WBC 10.84, hemoglobin 8.7, sodium 141, potassium 3.4, BUN 24, creatinine 0.67, calcium 8.2. Currently on CPAP, planning for patient for extubation today 02/27. Patient seen and examined. Patient was extubated last evening but this morning when he respiratory distress and had to be reintubated. Patient also spiking fever this morning. Patient was bronched this morning and found noted to have mucous plugging 02/28. Patient seen and examined.. Patient had episode overnight where she was biting on the ET tube, was also stiffened up, received 1 dose of Ativan. EEG ordered 03/01. Patient seen and examined. Labs reviewed showing WBC 12.9, hemoglobin 8.3, platelet count 326, sodium 149, potassium 3.6, BUN 24, creatinine 0.61, glucose 124. had a fever overnight of 101.9. REVIEW OF SYSTEMS: Review of system cannot be obtained patient currently debated PHYSICAL EXAMINATION: GENERAL: The patient is intubated HEENT: Pupils are round and equally reacting to light. EOMI. No scleral icterus. No conjunctival pallor. Normocephalic, atraumatic. No pharyngeal erythema. No thyromegaly. CARDIOVASCULAR: S1 and S2 present. No murmurs, rubs, or gallops. PULMONARY: Chest is clear to auscultation, no wheezing or crackles. ABDOMEN: Soft, nontender, nondistended, normoactive bowel sounds. No palpable organomegaly. MUSCULOSKELETAL: No joint swelling or deformity. EXTREMITIES: No cyanosis, clubbing, or pedal edema. NEUROLOGICAL: Intubated SKIN: Multiple areas of skin ulceration and breakdown seen Assessment and plan Acute hypoxic respiratory failure Acute systolic heart failure Severe sepsis Bilateral lower extremity cellulitis thought secondary to MRSA Hypotension secondary to above Worsening weakness on the left side associated with fall without syncope and transient slurred speech and some swallowing difficulty, rule out new stroke or worsening stroke Bullous pemphigoid with multiple eroded and friable bullae throughout the trunk and extremities with surrounding erythema on doxycycline and prednisone previously Cardiomyopathy with ejection fraction 35% Coronary artery disease History of PE History of stroke with persistent hemiplegia Moderate bilateral internal carotid artery stenosis Seizure disorder with history of breakthrough seizure Generalized weakness Monitor vital signs Monitor CBC Monitor CMP Continue telemetry monitoring Continue vent management Aggressive bronchopulmonary hygiene Follow-up on blood cultures Follow-up urine culture Continue cefepime Continue with Vimpat and Keppra Continue Eliquis 5 mg twice daily for stroke prevention from A-fib. continue seizure medications including Keppra 1500 mg twice daily, Tegretol 200 mg 3 times daily and gabapentin 600 mg 3 times daily. ID following, on recommendation noted from 03/01 Pulmonology following, recommendation noted from 03/01 Cardiology following, recommendation noted from 03/01 Labs and medication were reviewed.. Continue same treatment. Continue with symptomatic treatment. Resume home medication. Monitor labs and vitals. DVT and GI prophylaxis. Further recommendations as per clinical course of the patient Dictation was produced using [employer] dictation software. please excuse any grammatical, word or spelling errors. Objective - Vital Signs Vital signs: Vital Signs Temp 101.9 F H 03/01/25 12:30 Pulse 102 H 03/01/25 12:30 Resp 24 03/01/25 12:30 BP 157/81 03/01/25 05:00 Pulse Ox 98 03/01/25 12:30 FiO2 40 03/01/25 12:54 Intake & Output 02/28/25 03/01/25 03/01/25 18:59 06:59 18:59 Intake Total 1454.241 537.429 2036.869 Output Total 425 740 560 Balance 1029.241 115.928 495.869 Weight 56 kg Intake: IV 304 33 138 0.9 Sodium Chloride 140 0 40 Arterial Line 39 33 21 Cefepime 2 gm In Sodium 125 77 Chloride 0.9% 100 ml @ 25 mls/hr IVPB Q8H [facility] Rx#: [id number] Intake, IV Titration 500.241 142.928 451.869 Amount Dextrose 5% in Water 1, 200 000 ml @ 50 mls/hr IV . Q20H [facility] Rx#:[id number] Magnesium Sulfate-D5w Pmx 100 1 gm In Dextrose/Water 1 100ml.bag @ 100 mls/hr IVPB ONCE [facility] Rx#: [id number] Norepinephrine 8 mg In 52.427 4.273 159.775 Sodium Chloride 0.9% 250 ml @ 0.03 MCG/KG/MIN 3. 628 mls/hr IV .Q24H [facility] Rx#:[id number] Vancomycin 1,250 mg In 260 Sodium Chloride 0.9% 250 ml @ 125 mls/hr IVPB Q12H [facility] Rx#:[id number] propofoL 1,000 mg In 69.375 Empty Bag 1 bag @ 15 MCG/ KG/MIN 5.625 mls/hr IV . [id number] [facility] Rx#:[id number] propofoL 1,000 mg In 18.439 138.655 92.094 Empty Bag 1 bag @ 15 MCG/ KG/MIN 5.625 mls/hr IV . [id number] [facility] Rx#:[id number] Tube Feeding 540 590 406 Lipid 20 0.9 Sodium Chloride 20 Other 90 90 60 Output: Urine 425 740 560 Other: Voiding Method Indwelling Catheter Indwelling Catheter ABP, PAP, CO, CI - Last Documented Arterial Blood Pressure 107/45 - Labs CBC & Chem 7: 03/01/25 04:55 03/01/25 04:55 Labs: Abnormal Lab Results - Last 24 Hours (Table) 03/01/25 03/01/25 03/01/25 Range/Units 04:55 04:55 05:21 WBC 12.29 H (4.50-10.00) 10*3/uL RBC 3.01 L (4.10-5.20) 10*6/uL Hgb 8.3 L (12.0-15.0) g/dL Hct 27.6 L (37.2-46.3) % MCHC 30.1 L (32.0-37.0) g/dL Immature Gran # 0.09 H (0.00-0.04) 10*3/uL Neutrophils # 9.11 H (1.80-7.70) 10*3/uL Eosinophils # 1.53 H (0.04-0.35) 10*3/uL ABG pCO2 49 H (35-45) mmHg ABG pO2 130 H (83-108) mmHg ABG HCO3 34 H (21-25) mmol/L ABG Total CO2 36 H (19-24) mmol/L ABG O2 Saturation 99.0 H (94-97) % Hemoglobin 8.3 L (11.4-16.0) gm/dL Sodium 147 H (137-145) mmol/L Carbon Dioxide 34 H (22-30) mmol/L BUN 24 H (7-17) mg/dL Glucose 124 H (74-99) mg/dL POC Glucose (mg/dL) (70-110) mg/dL Calcium 8.1 L (8.4-10.2) mg/dL 03/01/25 Range/Units 06:29 WBC (4.50-10.00) 10*3/uL RBC (4.10-5.20) 10*6/uL Hgb (12.0-15.0) g/dL Hct (37.2-46.3) % MCHC (32.0-37.0) g/dL Immature Gran # (0.00-0.04) 10*3/uL Neutrophils # (1.80-7.70) 10*3/uL Eosinophils # (0.04-0.35) 10*3/uL ABG pCO2 (35-45) mmHg ABG pO2 (83-108) mmHg ABG HCO3 (21-25) mmol/L ABG Total CO2 (19-24) mmol/L ABG O2 Saturation (94-97) % Hemoglobin (11.4-16.0) gm/dL Sodium (137-145) mmol/L Carbon Dioxide (22-30) mmol/L BUN (7-17) mg/dL Glucose (74-99) mg/dL POC Glucose (mg/dL) 182 H (70-110) mg/dL Calcium (8.4-10.2) mg/dL Microbiology - Last 24 Hours (Table) 02/27/25 08:24 Gram Stain - Final Sputum Sputum Culture - Final 02/23/25 15:35 Blood Culture - Final Blood 02/27/25 09:02 Blood Culture - Preliminary Blood
--- NOTE | 2025-03-01 15:59 | P.PN ---
Subjective Progress Note Date: 03/01/25 Principal diagnosis: Reason for follow-up is multiple skin lesion question of cellulitis and multiple antibiotic allergies Patient is a 54-year-old female with a past medical history significant for PE seizure disorder coronary artery disease has been diagnosed with bullous pemphigoid patient has been brought into the hospital concerning for weakness patient did have multiple skin lesions concerning for cellulitis prompting this consultation. On today's evaluation that is 03/01/2025, the patient did spike another fever of 101.9 F at noon patient remains to be intubated on the vent FiO2 is currently at 40% no significant purulent secretions through the ET or any other changes reported by nursing staff. The patient white count is down to 12.29, creatinine 0.61 blood culture repeat currently pending Objective - Vital Signs Vital signs: Vital Signs Temp 100.6 F H 03/01/25 14:30 Pulse 95 03/01/25 15:00 Resp 21 03/01/25 15:00 BP 157/81 03/01/25 05:00 Pulse Ox 99 03/01/25 15:00 FiO2 40 03/01/25 15:00 Intake & Output 02/28/25 03/01/25 03/01/25 18:59 06:59 18:59 Intake Total 1454.241 083.024 5006.515 Output Total 425 740 735 Balance 1029.241 115.928 554.515 Weight 56 kg Intake: IV 304 33 142 0.9 Sodium Chloride 140 0 40 Arterial Line 39 33 27 Cefepime 2 gm In Sodium 125 75 Chloride 0.9% 100 ml @ 25 mls/hr IVPB Q8H [facility] Rx#: [id number] Intake, IV Titration 500.241 142.928 565.515 Amount Dextrose 5% in Water 1, 300 000 ml @ 50 mls/hr IV . Q20H [facility] Rx#:[id number] Magnesium Sulfate-D5w Pmx 100 1 gm In Dextrose/Water 1 100ml.bag @ 100 mls/hr IVPB ONCE [facility] Rx#: [id number] Norepinephrine 8 mg In 52.427 4.273 173.421 Sodium Chloride 0.9% 250 ml @ 0.03 MCG/KG/MIN 3. 628 mls/hr IV .Q24H [facility] Rx#:[id number] Vancomycin 1,250 mg In 260 Sodium Chloride 0.9% 250 ml @ 125 mls/hr IVPB Q12H [facility] Rx#:[id number] propofoL 1,000 mg In 69.375 Empty Bag 1 bag @ 15 MCG/ KG/MIN 5.625 mls/hr IV . [id number] [facility] Rx#:[id number] propofoL 1,000 mg In 18.439 138.655 92.094 Empty Bag 1 bag @ 15 MCG/ KG/MIN 5.625 mls/hr IV . [id number] [facility] Rx#:[id number] Tube Feeding 540 590 522 Lipid 20 0.9 Sodium Chloride 20 Other 90 90 60 Output: Urine 425 740 735 Other: Voiding Method Indwelling Catheter Indwelling Catheter Indwelling Catheter ABP, PAP, CO, CI - Last Documented Arterial Blood Pressure 112/47 - Exam GENERAL DESCRIPTION: Middle-age female intubated on the vent RESPIRATORY SYSTEM: Unlabored breathing , decreased breath sounds at bases HEART: S1 S2 regular rate and rhythm , ABDOMEN: Soft , no tenderness SKIN: Multiple ulcerated lesions but no drainage - Labs CBC & Chem 7: 03/01/25 04:55 03/01/25 04:55 Labs: Abnormal Lab Results - Last 24 Hours (Table) 03/01/25 03/01/25 03/01/25 Range/Units 04:55 04:55 05:21 WBC 12.29 H (4.50-10.00) 10*3/uL RBC 3.01 L (4.10-5.20) 10*6/uL Hgb 8.3 L (12.0-15.0) g/dL Hct 27.6 L (37.2-46.3) % MCHC 30.1 L (32.0-37.0) g/dL Immature Gran # 0.09 H (0.00-0.04) 10*3/uL Neutrophils # 9.11 H (1.80-7.70) 10*3/uL Eosinophils # 1.53 H (0.04-0.35) 10*3/uL ABG pCO2 49 H (35-45) mmHg ABG pO2 130 H (83-108) mmHg ABG HCO3 34 H (21-25) mmol/L ABG Total CO2 36 H (19-24) mmol/L ABG O2 Saturation 99.0 H (94-97) % Hemoglobin 8.3 L (11.4-16.0) gm/dL Sodium 147 H (137-145) mmol/L Carbon Dioxide 34 H (22-30) mmol/L BUN 24 H (7-17) mg/dL Glucose 124 H (74-99) mg/dL POC Glucose (mg/dL) (70-110) mg/dL Calcium 8.1 L (8.4-10.2) mg/dL 03/01/25 Range/Units 06:29 WBC (4.50-10.00) 10*3/uL RBC (4.10-5.20) 10*6/uL Hgb (12.0-15.0) g/dL Hct (37.2-46.3) % MCHC (32.0-37.0) g/dL Immature Gran # (0.00-0.04) 10*3/uL Neutrophils # (1.80-7.70) 10*3/uL Eosinophils # (0.04-0.35) 10*3/uL ABG pCO2 (35-45) mmHg ABG pO2 (83-108) mmHg ABG HCO3 (21-25) mmol/L ABG Total CO2 (19-24) mmol/L ABG O2 Saturation (94-97) % Hemoglobin (11.4-16.0) gm/dL Sodium (137-145) mmol/L Carbon Dioxide (22-30) mmol/L BUN (7-17) mg/dL Glucose (74-99) mg/dL POC Glucose (mg/dL) 182 H (70-110) mg/dL Calcium (8.4-10.2) mg/dL Microbiology - Last 24 Hours (Table) 02/27/25 08:24 Gram Stain - Final Sputum Sputum Culture - Final 02/23/25 15:35 Blood Culture - Final Blood 02/27/25 09:02 Blood Culture - Preliminary Blood Assessment and Plan (1) Skin ulcer of multiple sites Current Visit: Yes Status: Acute Code(s): L98.499 - NON-PRESSURE CHRONIC ULCER OF SKIN OF SITES W UNSP SEVERITY SNOMED Code(s): 01720011 (2) Bullous pemphigoid Current Visit: Yes Status: Acute Code(s): L12.0 - BULLOUS PEMPHIGOID SNOMED Code(s): 85768081 (3) Allergy to multiple antibiotics Current Visit: No Status: Acute Code(s): Z88.1 - ALLERGY STATUS TO OTHER AN TIBIOTIC AGENTS SNOMED Code(s): 397312718 Plan: 1 Patient presented to hospital with fall due to generalized weakness which could be related to possible prerenal as the patient and daughter mention air conditioning for the last few days which has been really hot and the patient will drinking enough fluid patient did have multiple skin lesions but there is no slough tissue no surrounding redness patient not running any fever no elevated white count clinically doubt any active cellulitis 2-multiple antibiotic allergies that would limit the number of antibiotics safe to use 3-patient urine culture positive for drug-resistant E. coli sensitive to ceftriaxone 4patient did have worsening of respiratory status requiring reintubation bron choscopy concerning for mucous plugging BAL culture so far negative 5with persistent fever vancomycin was added yesterday to continue along with cefepime while waiting for repeat culture to finalize the patient white count is trending down Dictation was produced using [employer] dictation software. please excuse any grammatical, word or spelling errors. Time with Patient: Less than 30
[2025-03-01 17:42] LABS: Glucose,Whole Blood 136 mg/dL (70-110)
[2025-03-01] MEDS: SENNOSIDES-DOCUSATE SODIUM 1 EACH TAB PO SCH (20:59)
[2025-03-02 04:43] LABS: ABG HCO3 31 mmol/L (21-25); ABG PCO2 43 mmHg (35-45); ABG PH 7.47 (7.35-7.45); ABG PO2 128 mmHg (83-108); ABG TCO2 32 mmol/L (19-24)
[2025-03-02 04:44] LABS: Allen Test Performed? no
[2025-03-02 05:13] LABS: Basophils # (A) 0.02 10*3/uL (0.00-0.10); Basophils % (A) 0.2 %; Eosinophils # (A) 1.11 10*3/uL (0.04-0.35); Eosinophils % (A) 13.2 %; HCT 24.9 % (37.2-46.3); HGB 7.3 g/dL (12.0-15.0); Lymphocytes # (A) 1.00 10*3/uL (0.90-5.00); Lymphocytes % (A) 11.9 %; MCH 27.0 pg (27.0-32.0); MCHC 29.3 g/dL (32.0-37.0); MCV 92.2 fL (80.0-97.0); Monocytes # (A) 0.34 10*3/uL (0.20-1.00); Monocytes % (A) 4.0 %; Neutrophils # (A) 5.83 10*3/uL (1.80-7.70); Neutrophils % (A) 69.4 %; Platelet Count 315 10*3/uL (140-440); RBC 2.70 10*6/uL (4.10-5.20); RDW 16.9 % (11.5-14.5); WBC 8.41 10*3/uL (4.50-10.00)
[2025-03-02 05:17] LABS: African American GFR (CKD) >90 (>60 ml/min/1.73 sqM); Anion Gap 5 mmol/L; Blood Urea Nitrogen 19 mg/dL (7-17); Calcium 7.0 mg/dL (8.4-10.2); Carbon Dioxide 29 mmol/L (22-30); Chloride 109 mmol/L (98-107); Glucose 130 mg/dL (74-99); Non-African American GFR(CKD) >90 (>60 ml/min/1.73 sqM); Potassium 3.2 mmol/L (3.5-5.1); Sodium 143 mmol/L (137-145)
[2025-03-02] MEDS: POTASSIUM BICARBONATE/CIT AC 20 MEQ TABLET.EFF NG-TUBE SCH (06:23)
--- NOTE | 2025-03-02 07:23 | XR ---
EXAMINATION TYPE: XR chest 1V portable DATE OF EXAM: 03/02/2025 5:16 AM COMPARISON: Chest radiograph from one day prior. CLINICAL INDICATION: Female, 54 years old with history of assess lungs; TECHNIQUE: XR chest 1V portable Frontal view of the chest. FINDINGS: Lungs/Pleura: Improved aeration of lungs on today's exam with persistent airspace opacities scattered throughout the lungs. No evidence of pneumothorax or large pleural effusion. Pulmonary vascularity: Unremarkable. Heart/mediastinum: Cardiomediastinal silhouette is unremarkable. Atherosclerotic calcifications are seen in the aorta. Single-lead cardiac conduction device overlying the left hemithorax with lead proj ecting over the right ventricle. Musculoskeletal: No acute osseous pathology. Other findings: None Lines/Tubes: Endotracheal tube with distal tip 5.5 cm above the polo. Nasogastric tube with its distal tip and side-port projecting under the diaphragm. Left internal jugular central venous catheter with distal tip at the cavoatrial junction. IMPRESSION: 1. Similar aeration with persistent multifocal airspace opacities. 2. Stable support lines and tubes. [facility], , 03/02/2025 7:20 AM
--- NOTE | 2025-03-02 10:27 | P.PN ---
Subjective Progress Note Date: 03/02/25 Principal diagnosis: Acute hypoxic respiratory failure secondary to acute pulmonary edema 54-year-old female patient got transferred to the intensive care unit because of acute respiratory distress, hypoxemia and diminished level of consciousness. The patient was originally hospitalized on 02/20/2025 for generalized weakness and a fall. She has multiple medical problems and comorbidities. I was involved in her care back in 2021 and at that time the patient had a COVID-19 related pneumonia with prolonged respiratory failure requiring a tracheostomy tube insertion and subsequent removal to facilitate her weaning off the mechanical ventilator. She is also known to have coronary artery disease and cardiac catheterization back in 2008 showed minimal CAD, cardiomyopathy and the most recent echocardiogram from August 2023 showed an ejection fraction of 35 to 40% and global LV hypokinesis. The patient also has paroxysmal atrial fibrillation she has a AICD in place. 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 During this current hospitalization, the patient was seen by cardiology. The patient was also seen by neurology and CT of the brain and the neck revealed no evidence of any dissection of the cervical internal carotid artery or vertebral artery. The patient was asked to continue anticoagulation with Eliquis. The patient was asked to continue Keppra 1.5 g twice a day and Tegretol 200 mg 3 times daily and gabapentin 600 mg p.o. 3 times daily regarding her previous history of seizure disorder. The patient was also seen by wound services as the patient has multiple nonhealing ulceration limited to skin breakdown and bullous pemphigoid. Zinc barrier cream was offered to the patient. The patient was also seen by infectious diseases and the patient was offered broad-spectrum antibiotics with vancomycin Overnight, the patient was hypotensive. The patient was given a bolus of fluid and IV albumin. Subsequently, the patient went into acute respiratory distress and the patient was severely hypoxic. She got transferred to the intensive care unit. Immediately, the patient was intubated and placed on the mechanical ventilator due to lack of oxygenation and altered mentation. Reviewed the chest x-ray postintubation and the patient has diffuse bilateral pulmonary infiltrates consistent with acute pulmonary edema. There is large amount of airspace disease bilaterally and suspect small pleural effusion. At this point in time, the patient is still intubated on a mechanical ventilator. Noted she was started on propofol and she was also given a dose of Nimbex to maintain synchrony with the mechanical ventilator and improve oxygenation. She is currently on assist-control mode at rate of 60, tidal volume of 400, FiO2 100% with a PEEP of 16. The most recent blood gases showed a pH of 7.23 with a PCO2 of 63 and PO251. She is currently on propofol running at 30 mcg/kg/min. Cardiac rhythm is sinus. Blood pressure is stable. No pressors. The patient was given Lasix 40 mg IV every 12 hours. Urine output since arrival to the ICU was in order of more than 200 cc an hour. On today's evaluation of 02/24/2025, the patient is being seen for a follow-up. The patient remains intubated on a mechanical ventilator. The patient is currently on propofol running at 30 mcg/kg/min. The patient is currently off paralytics and Nimbex has been discontinued. The patient remains assist-control mode of mechanical ventilation at rate of 24, tidal volume of 400, FiO2 50% with a PEEP of 5. Blood gases show a pH of 7.54 with a TTK179 and PO2 of 188. Chest x-ray shows improvement of bilateral pulmonary edema. The patient remains on a combination of IV cefepime and aztreonam, and vancomycin.. The patient remains on IV Lasix. Fluid balance is -3 L over the past 24 hours and the patient remains hemodynamically stable. The patient is in sinus tachycardia. The patient has no fever. The white cell, 11.3 with a hemoglobin 8.3 and a platelet count of 311. Sodium is at 140, BUN is 17 and a creatinine of 0.54 and potass ium level is at 3.7. The patient remains on anticoagulation with Eliquis 5 mg p.o. twice a day. Rest of the home medications have been resumed. CAT scan of the brain was also performed yesterday and it showed no acute intracranial process. There is a stable remote right large MCA distribution infarct and encephalomalacia. Remote left frontal lobe infarct with encephalomalacia. Echocardiogram was also done on 02/23/2025 and the patient has developed systolic heart failure with a left ventricular ejection fraction of 25 to 30%. There is moderate reduction of the global LV function. There is severe increased left ventricular diastolic volume. There is also mild to moderate mitral regurg itation. No other significant valvular abnormalities has been noted. Remains on Lasix 40 mg IV every 12 hours. Continues to receive wound Care. Seen today on 02/25/2025, patient remains in the ICU, intubated and mechanically ventilated, on assist-control rate of 24 tidal volume 400 FiO2 40% and PEEP of 5. Patient is still requiring pressors/norepinephrine at 0.03 mcg/kg/min she is on Precedex at 0.4 mcg/kg/h patient is on Lasix 40 mg IV push every 12 hours she has E. coli in her urine and she is receiving cefepime and Azactam. Her echocardiogram showed severe LV dysfunction with ejection fraction of 25 to 30% patient was intubated on 02/23, still receiving diuretics. Today I plan to give the patient a trial of weaning with pressure support of 10 and CPAP, however her MIP was very low and I decided to continue pressure support and CPAP as long as possible and hopefully repeat her again and hopefully try to wean today. At this point in time she is not ready for extubation. Chest x-ray is showing evidence of improving pulmonary edema. Her WBC is 9.8 hemoglobin is 8.1 basic metabolic profile is normal except for low potassium of 3.3 BUN is 23 creatinine 0.65. Patient was seen today on 02/26/2025, remains in the ICU, intubated and mechanically ventilated, patient is on pressure support and CPAP mode of mechanical ventilation, she has been on it since yesterday, patient is also on 40% FiO2, weaning parameters seem to be a bit better today compared to yesterday, patient follows simple instructions but she does not open her eyes. She is off norepinephrine she used to be on 0.02 mcg/kg/min, patient is hemodynamically stable at this point, however I am a bit concerned about her mental status especially when she does not open her eyes. Seems to be very weak and frail, I did recommend extubation to a pressure support of 10/5 and FiO2 of 40%. Her labs were all reviewed ABG today showed a pO2 of 110 pCO2 43 pH of 7.47 and this was on CPAP earlier. WBC count is 10.8 hemoglobin 8.7, basic metabolic profile is normal potassium is a bit low at 3.4 renal profile is normal. Chest x-ray continues to show multifocal airspace opacities and stable support lines and tubes. Seen today on 02/27/2025, patient was extubated today to BiPAP, she was marginal to begin with, but I felt we had the best window to extubate yesterday based on all the parameters. Patient remained marginal post extubation, and she required BiPAP at relatively high FiO2. This morning, patient ended up with worsening hypoxia requiring intubation chest x-ray postintubation showed almost near complete opacification of the left lung. Hence I performed bronchoscopy and I was able to suction a mucous plug in the left upper lobe which was most likely in the left mainstem bronchus at the time of the chest x-ray but moved up to the left upper lobe. This was suctioned and follow-up chest x-ray showed significant improvement. Patient is now intubated, mechanically ventilated, she is on assist-control rate of 24 tidal volume 400 FiO2 100% PEEP of 10 however later on I cut down her FiO2 down to 50%. ABG done on 50% FiO2 showed a pO2 of 65 pCO2 48 pH of 7.45 hence we kept the patient on the same vent settings as noted earlier. Patient is also requiring propofol at 60 mg/kg/min IV fluid KVO vital HP at she has now a right brachial arterial line, remains on cefepime. Follow-up chest x-ray post bronchoscopy showed significantly improved aeration of the left lung and also showed stable support lines and tubes. Patient was seen today on 02/28/2025, remains in the ICU, intubated, mechanically ventilated, she is on assist-control rate of 20 tidal volume 400 FiO2 40% and PEEP is 8 I brought down to 5. ABG showed a pO2 of 122 pCO2 48 pH of 7.48. Patient had seizure-like activity earlier this morning, being seen by neurology, EEG is pending. Remains on propofol at 50 mcg/kg/min she is on IV fluid 0.9 normal saline, she is not requiring any pressors, seizure-like activity respond ed well to Ativan earlier. Patient is sedated, her WBC count is 15.8 hemoglobin is 9, basic metabolic profile is normal except for low potassium of 3.4 being addressed accordingly as per protocol. Chest x-ray showed significant improvement compared to yesterday. Patient was seen today on , patient remains in the ICU intubated mechanically ventilated, on assist-control rate of 20 tidal volume 400 FiO2 40% PEEP of 5 ABG showed a pO2 of 130 pCO2 49 pH of 7.45 hence no changes made in her vent settings. Patient remains on norepinephrine at 0.09 mcg/kg/min also on propofol at 40 mcg/kg/min vital HP at 58 mL/h and her D5W is at 50 mL/h. Slight increase noted in her sodium up to 147 today. Sputum is positive for MSSA urine is positive for E. coli patient is still on cefepime and vancomycin. She is remains on Eliquis, I went ahead today and discontinued her Lasix. Chest x-ray showed no evidence of pulmonary edema, but she does have multifocal opacities more so in the right lower lobe suspicious for pneumonia. Seen today on 03/02/2025, patient remains in the ICU intubated mechanically ventilated on assist-control rate of 20 tidal volume 400 FiO2 40% PEEP of 5 ABG showed a pO2 of 128 pCO2 43 pH of 7.47 has FiO2 was cut down to 35%. Last night the patient had a Tmax of 102, remains on antibiotics as per infectious disease including vancomycin and cefepime. Patient is on propofol at 35 mg/kg/min she is requiring norepinephrine at 0.07 mcg/kg/min. Patient was initially intubated on 02/22 extubated on 02/26 reintubated on 02/27. Her mental status remains marginal at best, patient follows simple instructions but she does not seem to open her eyes, and she does not maintain any eye contact. WBC count today is 8.4 hemoglobin 7.3 platelets are normal ABG as noted earlier electrolytes are normal except for low potassium of 3.2, renal profile is normal chest x-ray showed mi nimal multifocal airspace opacities with left lower lobe atelectasis and possibly a small tiny left pleural effusion. Objective - Vital Signs Vital signs: Vital Signs Temp 102.1 F H 03/02/25 07:38 Pulse 88 03/02/25 10:00 Resp 24 03/02/25 10:00 BP 104/47 03/02/25 10:00 Pulse Ox 97 03/02/25 10:00 FiO2 35 03/02/25 08:36 Intake & Output 03/01/25 03/02/25 03/02/25 18:59 06:59 18:59 Intake Total 2039.603 1756.108 582.712 Output Total 1015 820 450 Balance 1024.603 936.108 132.712 Weight 57 kg Intake: IV 154 133 12 0.9 Sodium Chloride 40 Arterial Line 39 33 12 Cefepime 2 gm In Sodium 75 100 Chloride 0.9% 100 ml @ 25 mls/hr IVPB Q8H [facility] Rx#: [id number] Intake, IV Titration 1041.603 895.108 338.712 Amount Cefepime 2 gm In Sodium 25 Chloride 0.9% 100 ml @ 25 mls/hr IVPB Q8H [facility] Rx#: [id number] Dextrose 5% in Water 1, 500 550 200 000 ml @ 50 mls/hr IV . Q20H [facility] Rx#:[id number] Norepinephrine 8 mg In 174.509 9.172 57.992 Sodium Chloride 0.9% 250 ml @ 0.03 MCG/KG/MIN 3. 628 mls/hr IV .Q24H [facility] Rx#:[id number] Vancomycin 1,250 mg In 250 250 Sodium Chloride 0.9% 250 ml @ 125 mls/hr IVPB Q12H [facility] Rx#:[id number] propofoL 1,000 mg In 92.094 85.936 80.720 Empty Bag 1 bag @ 15 MCG/ KG/MIN 5.625 mls/hr IV . [id number] [facility] Rx#:[id number] Tube Feeding 754 638 232 Other 90 90 Output: Urine 1015 820 450 Other: Voiding Method Indwelling Catheter Indwelling Catheter # Bowel Movements 1 ABP, PAP, CO, CI - Last Documented Arterial Blood Pressure 121/50 - Exam GENERAL: Revealed 54-year-old female on mechanical ventilation arousable, follows simple construction like wiggling toes and squeezing hands but does not open her eyes does not maintain any eye contact even if asked to do so HEENT: PERRLA, EOMI, nonicteric. Endotracheal tube and orogastric tube are intact CARDIOVASCULAR: S1 and S2 present. No murmurs, rubs, or gallops. PULMONARY: Symmetrical chest expansion good breath sound bilaterally no rhonchi no wheezes ABDOMEN: Soft, nontender, nondistended, normoactive bowel sounds. No palpable organomegaly. MUSCULOSKELETAL: No joint swelling or deformity. EXTREMITIES: No cyanosis, clubbing, or pedal edema. Skin:-Friable bullae noted with surrounding erythema -NEUROLOGICAL: Does not open eyes but she follows very simple instructions seems to be profoundly weak. Psychiatric: Could not fully assess. - Labs CBC & Chem 7: 07/05/25 04:45 03/02/25 04:45 Labs: Abnormal Lab Results - Last 24 Hours (Table) 03/01/25 03/02/25 03/02/25 Range/Units 17:41 04:39 04:45 RBC (4.10-5.20) 10*6/uL Hgb (12.0-15.0) g/dL Hct (37.2-46.3) % MCHC (32.0-37.0) g/dL Immature Gran # (0.00-0.04) 10*3/uL Eosinophils # (0.04-0.35) 10*3/uL ABG pH 7.47 H (7.35-7.45) ABG pO2 128 H (83-108) mmHg ABG HCO3 31 H (21-25) mmol/L ABG Total CO2 32 H (19-24) mmol/L ABG O2 Saturation 99.2 H (94-97) % Hemoglobin 7.4 L (11.4-16.0) gm/dL Potassium 3.2 L (3.5-5.1) mmol/L Chloride 109 H (98-107) mmol/L BUN 19 H (7-17) mg/dL Creatinine 0.46 L (0.52-1.04) mg/dL Glucose 130 H (74-99) mg/dL POC Glucose (mg/dL) 136 H (70-110) mg/dL Calcium 7.0 L (8.4-10.2) mg/dL 03/02/25 Range/Units 04:45 RBC 2.70 L (4.10-5.20) 10*6/uL Hgb 7.3 L (12.0-15.0) g/dL Hct 24.9 L (37.2-46.3) % MCHC 29.3 L (32.0-37.0) g/dL Immature Gran # 0.11 H (0.00-0.04) 10*3/uL Eosinophils # 1.11 H (0.04-0.35) 10*3/uL ABG pH (7.35-7.45) ABG pO2 (83-108) mmHg ABG HCO3 (21-25) mmol/L ABG Total CO2 (19-24) mmol/L ABG O2 Saturation (94-97) % Hemoglobin (11.4-16.0) gm/dL Potassium (3.5-5.1) mmol/L Chloride (98-107) mmol/L BUN (7-17) mg/dL Creatinine (0.52-1.04) mg/dL Glucose (74-99) mg/dL POC Glucose (mg/dL) (70-110) mg/dL Calcium (8.4-10.2) mg/dL Microbiology - Last 24 Hours (Table) 02/27/25 09:02 Blood Culture - Preliminary Blood 02/27/25 08:24 Gram Stain - Final Sputum Sputum Culture - Final Assessment and Plan Assessment: Impression: Acute hypoxic respiratory failure secondary to acute pulmonary edema Acute systolic congestive heart failure ejection fraction of 25 to 30% Bullous pemphigoid disease Paroxysmal atrial fibrillation History of seizure disorder Chronic bilateral lower 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 Had to be reintubated on 02/27/2025. Multifocal opacities noted on chest x-ray today suggestive of MSSA pneumonia with positive sputum cultures for MSSA. Recommendation: Continue ventilatory support, however the patient will be given a sedation holiday today, hopefully we could fully assess her mental status, could check weaning parameters, I do not believe the patient is ready for weaning but will try how she does off sedation. Daily interruption of sedation Continue antibiotics Continue to hold Lasix Continue amiodarone Continue Eliquis Continue wound care Continue Seroquel Continue nutritional support/enteral feeding presently on vital HP at goal Continue GI DVT prophylaxis Patient remains critically ill Consider tracheostomy and PEG tube placement if the patient fails weaning Critical care time is 34 Time with Patient: Greater than 30
[2025-03-02] MEDS: ANIDULAFUNGIN 200 MG in SODIUM CHLORIDE 0.9% 200 ML IVPB ONE (11:37)
[2025-03-02 11:45] LABS: Glucose,Whole Blood 188 mg/dL (70-110)
--- NOTE | 2025-03-02 14:03 | P.PN ---
Subjective Progress Note Date: 03/02/25 The patient was seen this morning. She continues to be intubated on mechanical ventilation she continues to be hemodynamically stable requiring norepinephrine but she is requiring less norepinephrine compared to before. Urine output continues to be marginal. She is on Lasix IV at 40 mg twice daily. She is not on any cardiomyopathy medications because of the hemodynamical instability and requiring norepinephrine. The echo showed an EF between 25 to 30%. The physical examination is remarkable for intubated patient on mechanical ventilation with diminished breathing sounds bilaterally and regular rate and rhythm. February 26, 2025 The patient was seen and evaluated this morning. She continues to be intubated. She is still on Lasix IV. The pressure still low requiring norepinephrine but we are coming down with a dose. The chest x-ray was reviewed this morning and seems to be overall better in terms of fluid overload. We potentially can come down with a dose of IV Lasix and possible wean the patient off from norepinephrine. The physical examination is remarkable for regular rhythm with diminished breathing sounds bilaterally and mild bilateral lower extremity edema and skin changes noted. She is on oral anticoagulation. February 27, 2025 The patient was seen and evaluated this morning. She was extubated yesterday and then she reintubated again because she developed hypoxic respiratory failure. The chest x-ray showed complete opacification of the left lung. She is in process of having possible bronchoscopy. Hemodynamically she remains unstable requiring small dose of norepinephrine. The physical examination is remarkable for regular rate and rhythm with a systolic murmur at the right and left upper sternal border and wheezing was noted also. February 28, 2025 The patient was seen and evaluated this morning. She underwent bronchoscopy yesterday. The chest x-ray today appears to be better. The complete opacification of the left lung has resolved completely. Currently she is intubated on mechanical ventilation. She is off norepinephrine at this point and hemodynamically stable and maintaining normal sinus mechanism. Physical examination is remarkable for regular rhythm with a systolic murmur at the right upper sternal border and clear breathing sounds bilaterally and no edema was noted in the lower extremities with extensive skin rash. March 01, 2025 Intubed and sedated. She is back on levophed. + fever, cxr ok March 02, 2025 Pt seen in ICU. She remains intubated, off sedation she does follow commands per nursing. She is still on levophed. Assessment Acute hypoxic respiratory failure Severe cardiomyopathy Heart failure with reduced ejection fraction Paroxysmal atrial fibrillation Sinus rhythm at this point Multiple comorbid conditions including anemia Plan: Continue the current medical regimen Continue oral anticoagulation and amiodarone Monitor the kidney function and electrolytes and hemoglobin Consider restarting the patient's back on cardiomyopathy medication once she is off norepinephrine Further recommendations pending clinic course Pt seen and examined in rounds with Dr. Garibay Signing provider agrees with the documented findings, assessment, and plan of care documented by [employer] as a scribe. Objective - Vital Signs Vital signs: Vital Signs Temp 102.1 F H 03/02/25 07:38 Pulse 88 03/02/25 10:00 Resp 24 03/02/25 10:00 BP 104/47 03/02/25 10:00 Pulse Ox 97 03/02/25 10:00 FiO2 35 03/02/25 13:12 Intake & Output 03/01/25 03/02/25 03/02/25 18:59 06:59 18:59 Intake Total 2039.603 3804.723 5037.213 Output Total 1015 820 845 Balance 1024.603 936.108 259.213 Weight 57 kg Intake: IV 154 133 96 0.9 Sodium Chloride 40 Arterial Line 39 33 21 Cefepime 2 gm In Sodium 75 100 75 Chloride 0.9% 100 ml @ 25 mls/hr IVPB Q8H [facility] Rx#: [id number] Intake, IV Titration 1041.603 895.108 572.213 Amount Anidulafungin 100 mg In 168 Sodium Chloride 0.9% 100 ml @ 84 mls/hr IVPB DAILY [facility] Rx#:[id number] Cefepime 2 gm In Sodium 25 Chloride 0.9% 100 ml @ 25 mls/hr IVPB Q8H [facility] Rx#: [id number] Dextrose 5% in Water 1, 500 550 250 000 ml @ 50 mls/hr IV . Q20H [facility] Rx#:[id number] Norepinephrine 8 mg In 174.509 9.172 73.493 Sodium Chloride 0.9% 250 ml @ 0.03 MCG/KG/MIN 3. 628 mls/hr IV .Q24H [facility] Rx#:[id number] Vancomycin 1,250 mg In 250 250 Sodium Chloride 0.9% 250 ml @ 125 mls/hr IVPB Q12H [facility] Rx#:[id number] propofoL 1,000 mg In 92.094 85.936 80.720 Empty Bag 1 bag @ 15 MCG/ KG/MIN 5.625 mls/hr IV . [id number] [facility] Rx#:[id number] Tube Feeding 754 638 406 Other 90 90 30 Output: Urine 1015 820 845 Other: Voiding Method Indwelling Catheter Indwelling Catheter # Bowel Movements 1 ABP, PAP, CO, CI - Last Documented Arterial Blood Pressure 97/47 - Labs CBC & Chem 7: 03/02/25 04:45 03/02/25 11:28 Labs: Abnormal Lab Results - Last 24 Hours (Table) 03/01/25 03/02/25 03/02/25 Range/Units 17:41 04:39 04:45 RBC (4.10-5.20) 10*6/uL Hgb (12.0-15.0) g/dL Hct (37.2-46.3) % MCHC (32.0-37.0) g/dL Immature Gran # (0.00-0.04) 10*3/uL Eosinophils # (0.04-0.35) 10*3/uL ABG pH 7.47 H (7.35-7.45) ABG pO2 128 H (83-108) mmHg ABG HCO3 31 H (21-25) mmol/L ABG Total CO2 32 H (19-24) mmol/L ABG O2 Saturation 99.2 H (94-97) % Hemoglobin 7.4 L (11.4-16.0) gm/dL Potassium 3.2 L (3.5-5.1) mmol/L Chloride 109 H (98-107) mmol/L BUN 19 H (7-17) mg/dL Creatinine 0.46 L (0.52-1.04) mg/dL Glucose 130 H (74-99) mg/dL POC Glucose (mg/dL) 136 H (70-110) mg/dL Calcium 7.0 L (8.4-10.2) mg/dL 03/02/25 03/02/25 Range/Units 04:45 11:43 RBC 2.70 L (4.10-5.20) 10*6/uL Hgb 7.3 L (12.0-15.0) g/dL Hct 24.9 L (37.2-46.3) % MCHC 29.3 L (32.0-37.0) g/dL Immature Gran # 0.11 H (0.00-0.04) 10*3/uL Eosinophils # 1.11 H (0.04-0.35) 10*3/uL ABG pH (7.35-7.45) ABG pO2 (83-108) mmHg ABG HCO3 (21-25) mmol/L ABG Total CO2 (19-24) mmol/L ABG O2 Saturation (94-97) % Hemoglobin (11.4-16.0) gm/dL Potassium (3.5-5.1) mmol/L Chloride (98-107) mmol/L BUN (7-17) mg/dL Creatinine (0.52-1.04) mg/dL Glucose (74-99) mg/dL POC Glucose (mg/dL) 188 H (70-110) mg/dL Calcium (8.4-10.2) mg/dL Microbiology - Last 24 Hours (Table) 02/27/25 09:02 Blood Culture - Preliminary Blood
--- NOTE | 2025-03-02 16:14 | P.PN ---
Subjective Progress Note Date: 03/02/25 This is a pleasant 54 years old female who was recently diagnosed with bullous pemphigoid 3 months ago when she is sent from this facility to [facility], she had a biopsy followed by treatment with doxycycline and taper prednisone over 3 weeks. Also she has extensive long history of CHF and seizure disorder. She was previously in the ICU for severe sepsis. Now presents because of generalized weakness. Patient states she went and fell today while she was trying to get up to go to the restroom she found a green chair on her way she was too weak to move with so she fell on her buttocks she could not get up as usual so she called the family who helped her and called EMS. Patient stayed on the floor for about 25 minutes as she explains. Denies any abdominal pain vomiting or diarrhea Denies dysuria urgency but states she has not been since yesterday and she has been drinking a lot of water for this reason Denies chest pain or dyspnea or coughing. No headache dizziness She is a known case of previous stroke and severe left hemiparesis, patient states it is worse than before this time. Also there was some concern from some slurred speech but no double vision. Patient complains from feeling swollen in her legs She has extensive bullous disease, majority of them are ruptured throughout her trunk and extremities and there is surrounding with erythema more extensive edema in the lower extremities bilaterally. However there is no purulent discharge. No significant tenderness in this erythematous area Her suppression crew leader Dr. Noriega neurologist is Dr. quiroz Patient with no fever blood pressure slightly on the low side but patient is symptomatic Blood pressure is fluctuation slightly on the low side Hemoglobin 10 WBC normal 8.6. Rest of labs unremarkable including electrolytes proBNP 1740 CT of the head and neck showing moderate stenosis of bilateral internal carotid arteries CT of the brain showing remote right large MCA territory infarct with encephalomalacia and remote left frontal infarct with encephalomalacia and bilateral cerebellar encephalomalacia Chest x-ray showing mild interstitial prominence may be bronchitis rule out mild pulmonary vascular congestion 02/21 Patient awake alert She looks hypovolemic with positive orthostatic vitals, yesterday we will give her a bolus of 500 cc. Albumin dropped from 2.7 down to 2.0. Patient has slightly worse leg swelling. She has multiple friable and ruptured bullae on the trunk and extremities with mild erythema surrounding these bullae especially in the lower extremities. These are chronic for the last 3 months diagnosed with bullous pemphigoid. Patient states that she took the steroids and that did not help much. She denies chest pain or dyspnea. No abdominal pain or vomiting. Patient currently not on antibiotics per ID team recommendation to keep monitoring while off antibiotics. No fever. Patient was on doxycycline for her bullous lesions at [facility] not sure if she needed for now, keep holding doxycycline. Cardiology is going to evaluate the patient. Neurology service also on the case however patient has chronic hemiplegia, and this morning she is not sure if it is left hemiplegia is at baseline or worse, however is severe and does not make much difference. No slurred speech no blurry vision. 02/22 Patient is looks tired lethargic Kirlin in bed and was shivering in the morning and developing fever also she is tachycardic and blood pressure is soft No chest pain or abdominal pain Still has erythema and swelling of both lower extremities suspected secondary to cellulitis, MRSA suspected and currently she is on IV vancomycin with infectious disease team recommendation She has good urine output and creatinine within the reference range. We give her a bolus of albumin given her hypoalbuminemia also if blood pressure remains low may consider a bolus of normal saline later on Midodrine was prescribed on admission as needed for hypotension but was not given by staff despite low blood pressure therefore we are going to switch it to standing dose Monitor labs and electrolytes and vitals closely 02/23 Patient yesterday was found unresponsive on the floor and there was foam in her mouth A team was called Patient got intubated and placed on mechanical ventilation transferred to the ICU. Patient currently intubated and sedated. Yesterday patient was hypotensive and tachycardic and altered mental status. This morning required Levophed 02/23 Patient remains in the ICU intubated and sedated, PEEP is 5 improved Female family member at bedside. Patient earlier was able to work She opened eyes and tried to communicate and she could recognize the family member, she was anxious as per family Patient required small dose of pressors earlier Continue on same antibiotics as per infectious disease team Off IV fluid Echocardiogram showed ejection fraction of 25 to 30% Increased left ventricular mass with very severe LV dysfunction Sputum culture growing Staph aureus pansensitive he Patient's rash of the lower extremity is significantly improved Discussed the case with pulmonary team 02/25. Patient seen and examined. Patient continues to be intubated 02/26. Patient seen and examined. Labs done this morning showed WBC 10.84, hemoglobin 8.7, sodium 141, potassium 3.4, BUN 24, creatinine 0.67, calcium 8.2. Currently on CPAP, planning for patient for extubation today 02/27. Patient seen and examined. Patient was extubated last evening but this morning when he respiratory distress and had to be reintubated. Patient also spiking fever this morning. Patient was bronched this morning and found noted to have mucous plugging 02/28. Patient seen and examined.. Patient had episode overnight where she was biting on the ET tube, was also stiffened up, received 1 dose of Ativan. EEG ordered 03/01. Patient seen and examined. Labs reviewed showing WBC 12.9, hemoglobin 8.3, platelet count 326, sodium 149, potassium 3.6, BUN 24, creatinine 0.61, glucose 124. had a fever overnight of 101.9. 03/02. Patient seen and examined. Patient has been spiking fevers overnight. Patient is currently off sedation, continues to be on Ventilation. ID started patient on Eraxis REVIEW OF SYSTEMS: Review of system cannot be obtained patient currently debated PHYSICAL EXAMINATION: GENERAL: The patient is intubated HEENT: Pupils are round and equally reacting to light. EOMI. No scleral icterus. No conjunctival pallor. Normocephalic, atraumatic. No pharyngeal erythema. No thyromegaly. CARDIOVASCULAR: S1 and S2 present. No murmurs, rubs, or gallops. PULMONARY: Chest is clear to auscultation, no wheezing or crackles. ABDOMEN: Soft, nontender, nondistended, normoactive bowel sounds. No palpable organomegaly. MUSCULOSKELETAL: No joint swelling or deformity. EXTREMITIES: No cyanosis, clubbing, or pedal edema. NEUROLOGICAL: Intubated SKIN: Multiple areas of skin ulceration and breakdown seen Assessment and plan Acute hypoxic respiratory failure Acute systolic heart failure Severe sepsis Bilateral lower extremity cellulitis thought secondary to MRSA Hypotension secondary to above Worsening weakness on the left side associated with fall without syncope and t ransient slurred speech and some swallowing difficulty, rule out new stroke or worsening stroke Bullous pemphigoid with multiple eroded and friable bullae throughout the trunk and extremities with surrounding erythema on doxycycline and prednisone previously Cardiomyopathy with ejection fraction 35% Coronary artery disease History of PE History of stroke with persistent hemiplegia Moderate bilateral internal carotid artery stenosis Seizure disorder with history of breakthrough seizure Generalized weakness Monitor vital signs Monitor CBC Monitor CMP Continue telemetry monitoring Continue vent management Aggressive bronchopulmonary hygiene Repeat blood culture sputum cultures ordered Continue cefepime Start Eraxis Continue with Vimpat and Keppra Continue Eliquis 5 mg twice daily for stroke prevention from A-fib. continue seizure medications including Keppra 1500 mg twice daily, Tegretol 200 mg 3 times daily and gabapentin 600 mg 3 times daily. ID following, on recommendation noted from 03/02 Pulmonology following, recommendation noted from 03/02 Cardiology following, recommendation noted from 03/02 Labs and medication were reviewed.. Continue same treatment. Continue with symptomatic treatment. Resume home medication. Monitor labs and vitals. DVT and GI prophylaxis. Further recommendations as per clinical course of the patient Dictation was produced using [employer] dictation software. please excuse any grammatical, word or spelling errors. Objective - Vital Signs Vital signs: Vital Signs Temp 99.3 F 03/02/25 12:45 Pulse 88 03/02/25 15:30 Resp 19 03/02/25 15:30 BP 104/47 03/02/25 10:00 Pulse Ox 97 03/02/25 15:30 FiO2 35 03/02/25 13:12 Intake & Output 03/01/25 03/02/25 03/02/25 18:59 06:59 18:59 Intake Total 2039.603 1918.308 6675.390 Output Total 2314 598 9781 Balance 1024.603 936.108 158.390 Weight 57 kg Intake: IV 154 133 105 0.9 Sodium Chloride 40 Arterial Line 39 33 30 Cefepime 2 gm In Sodium 75 100 75 Chloride 0.9% 100 ml @ 25 mls/hr IVPB Q8H [facility] Rx#: [id number] Intake, IV Titration 1041.603 895.108 758.390 Amount Anidulafungin 100 mg In 252 Sodium Chloride 0.9% 100 ml @ 84 mls/hr IVPB DAILY [facility] Rx#:[id number] Cefepime 2 gm In Sodium 25 Chloride 0.9% 100 ml @ 25 mls/hr IVPB Q8H [facility] Rx#: [id number] Dextrose 5% in Water 1, 500 550 350 000 ml @ 50 mls/hr IV . Q20H ONE Rx#:[id number] Norepinephrine 8 mg In 174.509 9.172 75.670 Sodium Chloride 0.9% 250 ml @ 0.03 MCG/KG/MIN 3. 628 mls/hr IV .Q24H [facility] Rx#:[id number] Vancomycin 1,250 mg In 250 250 Sodium Chloride 0.9% 250 ml @ 125 mls/hr IVPB Q12H [facility] Rx#:[id number] propofoL 1,000 mg In 92.094 85.936 80.720 Empty Bag 1 bag @ 15 MCG/ KG/MIN 5.625 mls/hr IV . [id number] [facility] Rx#:[id number] Tube Feeding 754 638 580 Other 90 90 60 Output: Urine 5943 543 6848 Other: Voiding Method Indwelling Catheter Indwelling Catheter Indwelling Catheter # Bowel Movements 1 ABP, PAP, CO, CI - Last Documented Arterial Blood Pressure 100/40 - Labs CBC & Chem 7: 03/02/25 04:45 03/02/25 11:28 Labs: Abnormal Lab Results - Last 24 Hours (Table) 03/01/25 03/02/25 03/02/25 Range/Units 17:41 04:39 04:45 RBC (4.10-5.20) 10*6/uL Hgb (12.0-15.0) g/dL Hct (37.2-46.3) % MCHC (32.0-37.0) g/dL Immature Gran # (0.00-0.04) 10*3/uL Eosinophils # (0.04-0.35) 10*3/uL ABG pH 7.47 H (7.35-7.45) ABG pO2 128 H (83-108) mmHg ABG HCO3 31 H (21-25) mmol/L ABG Total CO2 32 H (19-24) mmol/L ABG O2 Saturation 99.2 H (94-97) % Hemoglobin 7.4 L (11.4-16.0) gm/dL Potassium 3.2 L (3.5-5.1) mmol/L Chloride 109 H (98-107) mmol/L BUN 19 H (7-17) mg/dL Creatinine 0.46 L (0.52-1.04) mg/dL Glucose 130 H (74-99) mg/dL POC Glucose (mg/dL) 136 H (70-110) mg/dL Calcium 7.0 L (8.4-10.2) mg/dL 03/02/25 03/02/25 Range/Units 04:45 11:43 RBC 2.70 L (4.10-5.20) 10*6/uL Hgb 7.3 L (12.0-15.0) g/dL Hct 24.9 L (37.2-46.3) % MCHC 29.3 L (32.0-37.0) g/dL Immature Gran # 0.11 H (0.00-0.04) 10*3/uL Eosinophils # 1.11 H (0.04-0.35) 10*3/uL ABG pH (7.35-7.45) ABG pO2 (83-108) mmHg ABG HCO3 (21-25) mmol/L ABG Total CO2 (19-24) mmol/L ABG O2 Saturation (94-97) % Hemoglobin (11.4-16.0) gm/dL Potassium (3.5-5.1) mmol/L Chloride (98-107) mmol/L BUN (7-17) mg/dL Creatinine (0.52-1.04) mg/dL Glucose (74-99) mg/dL POC Glucose (mg/dL) 188 H (70-110) mg/dL Calcium (8.4-10.2) mg/dL Microbiology - Last 24 Hours (Table) 02/27/25 09:02 Blood Culture - Preliminary Blood
--- NOTE | 2025-03-02 16:21 | P.PN ---
Subjective Progress Note Date: 03/02/25 Principal diagnosis: Reason for follow-up is multiple skin lesion question of cellulitis and multiple antibiotic allergies Patient is a 54-year-old female with a past medical history significant for PE seizure disorder coronary artery disease has been diagnosed with bullous pemphigoid patient has been brought into the hospital concerning for weakness patient did have multiple skin lesions concerning for cellulitis prompting this consultation. On today's evaluation that is 03/02/2024, patient did have a temperature of 102.1 F this morning the patient did have improvement in the fever pattern noted at 9.3 this afternoon patient remains to be intubated on the vent FiO2 is currently at 35% no other changes reported by the nursing staff. Patient white count is down to 8.41, creatinine 0.46 blood pressure repeat currently pending Objective - Vital Signs Vital signs: Vital Signs Temp 102.1 F H 03/02/25 07:38 Pulse 87 03/02/25 08:36 Resp 25 H 03/02/25 08:36 BP 105/49 03/02/25 08:36 Pulse Ox 97 03/02/25 08:36 FiO2 35 03/02/25 08:36 Intake & Output 03/01/25 03/02/25 03/02/25 18:59 06:59 18:59 Intake Total 2039.603 1756.108 299.524 Output Total 1015 820 250 Balance 1024.603 936.108 49.524 Weight 57 kg Intake: IV 154 133 6 0.9 Sodium Chloride 40 Arterial Line 39 33 6 Cefepime 2 gm In Sodium 75 100 Chloride 0.9% 100 ml @ 25 mls/hr IVPB Q8H [facility] Rx#: [id number] Intake, IV Titration 1041.603 895.108 235.524 Amount Cefepime 2 gm In Sodium 25 Chloride 0.9% 100 ml @ 25 mls/hr IVPB Q8H [facility] Rx#: [id number] Dextrose 5% in Water 1, 500 550 100 000 ml @ 50 mls/hr IV . Q20H [facility] Rx#:[id number] Norepinephrine 8 mg In 174.509 9.172 57.992 Sodium Chloride 0.9% 250 ml @ 0.03 MCG/KG/MIN 3. 628 mls/hr IV .Q24H [facility] Rx#:[id number] Vancomycin 1,250 mg In 250 250 Sodium Chloride 0.9% 250 ml @ 125 mls/hr IVPB Q12H [facility] Rx#:[id number] propofoL 1,000 mg In 92.094 85.936 77.532 Empty Bag 1 bag @ 15 MCG/ KG/MIN 5.625 mls/hr IV . [id number] [facility] Rx#:[id number] Tube Feeding 754 638 58 Other 90 90 Output: Urine 1015 820 250 Other: Voiding Method Indwelling Catheter Indwelling Catheter # Bowel Movements 1 ABP, PAP, CO, CI - Last Documented Arterial Blood Pressure 121/50 - Exam GENERAL DESCRIPTION: Middle-age female intubated on the vent RESPIRATORY SYSTEM: Unlabored breathing , decreased breath sounds at bases HEART: S1 S2 regular rate and rhythm , ABDOMEN: Soft , no tenderness SKIN: Multiple ulcerated lesions but no drainage - Labs CBC & Chem 7: 03/02/25 04:45 03/02/25 11:28 Labs: Abnormal Lab Results - Last 24 Hours (Table) 03/01/25 03/02/25 03/02/25 Range/Units 17:41 04:39 04:45 RBC (4.10-5.20) 10*6/uL Hgb (12.0-15.0) g/dL Hct (37.2-46.3) % MCHC (32.0-37.0) g/dL Immature Gran # (0.00-0.04) 10*3/uL Eosinophils # (0.04-0.35) 10*3/uL ABG pH 7.47 H (7.35-7.45) ABG pO2 128 H (83-108) mmHg ABG HCO3 31 H (21-25) mmol/L ABG Total CO2 32 H (19-24) mmol/L ABG O2 Saturation 99.2 H (94-97) % Hemoglobin 7.4 L (11.4-16.0) gm/dL Potassium 3.2 L (3.5-5.1) mmol/L Chloride 109 H (98-107) mmol/L BUN 19 H (7-17) mg/dL Creatinine 0.46 L (0.52-1.04) mg/dL Glucose 130 H (74-99) mg/dL POC Glucose (mg/dL) 136 H (70-110) mg/dL Calcium 7.0 L (8.4-10.2) mg/dL 03/02/25 Range/Units 04:45 RBC 2.70 L (4.10-5.20) 10*6/uL Hgb 7.3 L (12.0-15.0) g/dL Hct 24.9 L (37.2-46.3) % MCHC 29.3 L (32.0-37.0) g/dL Immature Gran # 0.11 H (0.00-0.04) 10*3/uL Eosinophils # 1.11 H (0.04-0.35) 10*3/uL ABG pH (7.35-7.45) ABG pO2 (83-108) mmHg ABG HCO3 (21-25) mmol/L ABG Total CO2 (19-24) mmol/L ABG O2 Saturation (94-97) % Hemoglobin (11.4-16.0) gm/dL Potassium (3.5-5.1) mmol/L Chloride (98-107) mmol/L BUN (7-17) mg/dL Creatinine (0.52-1.04) mg/dL Glucose (74-99) mg/dL POC Glucose (mg/dL) (70-110) mg/dL Calcium (8.4-10.2) mg/dL Microbiology - Last 24 Hours (Table) 02/27/25 09:02 Blood Culture - Preliminary Blood 02/27/25 08:24 Gram Stain - Final Sputum Sputum Culture - Final Assessment and Plan (1) Skin ulcer of multiple sites Current Visit: Yes Status: Acute Code(s): L98.499 - NON-PRESSURE CHRONIC ULCER OF SKIN OF SITES W UNSP SEVERITY SNOMED Code(s): 30897713 (2) Bullous pemphigoid Current Visit: Yes Status: Acute Code(s): L12.0 - BULLOUS PEMPHIGOID SNOMED Code(s): 23463879 (3) Allergy to multiple antibiotics Current Visit: No Status: Acute Code(s): Z88.1 - ALLERGY STATUS TO OTHER ANTIBIOTIC AGENTS SNOMED Code(s): 154133568 Plan: 1 Patient presented to hospital with fall due to generalized weakness and did have multiple skin lesion with outpatient diagnosis of bullous pemphigoid patient did have worsening of her respiratory status requiring intubation sputum culture positive for MSSA urine with E. coli drug-resistant E. coli sensitive to ceftriaxone 2patient did have worsening of respiratory status requiring reintubation bronchoscopy concerning for mucous plugging BAL culture so far negative 3with persistent fever despite addition of the vancomycin and the patient be on cefepime Eraxis has been added this morning while waiting for the blood culture repeat to finalize and monitor clinical course closely Dictation was produced using [employer] dictation software. please excuse any grammatical, word or spelling errors.
[2025-03-02 17:52] LABS: Glucose,Whole Blood 125 mg/dL (70-110)
[2025-03-02] MEDS: MAGNESIUM SULFATE-D5W PMX 1 GM in DEXTROSE/WATER 1 100ML.BAG IVPB ONE (22:38)
[2025-03-03 02:47] LABS: Glucose,Whole Blood 131 mg/dL (70-110)
[2025-03-03] MEDS: VANCOMYCIN TROUGH DUE 1 EACH MISC MISCELLANE ONE (04:00)
[2025-03-03 05:16] LABS: Basophils # (A) 0.02 10*3/uL (0.00-0.10); Basophils % (A) 0.2 %; Eosinophils # (A) 0.89 10*3/uL (0.04-0.35); Eosinophils % (A) 11.0 %; HCT 24.2 % (37.2-46.3); HGB 7.2 g/dL (12.0-15.0); Lymphocytes # (A) 0.96 10*3/uL (0.90-5.00); Lymphocytes % (A) 11.8 %; MCH 26.8 pg (27.0-32.0); MCHC 29.8 g/dL (32.0-37.0); MCV 90.0 fL (80.0-97.0); Monocytes # (A) 0.34 10*3/uL (0.20-1.00); Monocytes % (A) 4.2 %; Neutrophils # (A) 5.82 10*3/uL (1.80-7.70); Neutrophils % (A) 71.8 %; Platelet Count 302 10*3/uL (140-440); RBC 2.69 10*6/uL (4.10-5.20); RDW 16.9 % (11.5-14.5); WBC 8.11 10*3/uL (4.50-10.00)
[2025-03-03 05:32] LABS: African American GFR (CKD) >90 (>60 ml/min/1.73 sqM); Anion Gap 7 mmol/L; Blood Urea Nitrogen 19 mg/dL (7-17); Calcium 8.0 mg/dL (8.4-10.2); Carbon Dioxide 27 mmol/L (22-30); Chloride 101 mmol/L (98-107); Glucose 120 mg/dL (74-99); Magnesium 1.7 mg/dL (1.6-2.3); Non-African American GFR(CKD) >90 (>60 ml/min/1.73 sqM); Potassium 4.2 mmol/L (3.5-5.1); Sodium 135 mmol/L (137-145)
[2025-03-03 05:58] LABS: ABG HCO3 30 mmol/L (21-25); ABG PCO2 39 mmHg (35-45); ABG PH 7.49 (7.35-7.45); ABG PO2 107 mmHg (83-108); ABG TCO2 31 mmol/L (19-24)
[2025-03-03 06:00] LABS: Allen Test Performed? no
[2025-03-03] MEDS: VANCOMYCIN 1,250 MG in SODIUM CHLORIDE 0.9% 250 ML IVPB SCH (07:04)
--- NOTE | 2025-03-03 07:16 | XR ---
EXAMINATION TYPE: XR chest 1V portable DATE OF EXAM: 03/03/2025 5:50 AM COMPARISON: Chest radiograph from one day prior. CLINICAL INDICATION: Female, 54 years old with history of assess lungs; H TECHNIQUE: XR chest 1V portable Frontal view of the chest. FINDINGS: Lungs/Pleura: Improved aeration of lungs on today's exam with persistent airspace opacities scattered throughout the lungs. No evidence of pneumothorax or large pleural effusion. Pulmonary vascularity: Unremarkable. Heart/mediastinum: Cardiomediastinal silhouette is unremarkable. Atherosclerotic calcifications are seen in the aorta. Single-lead cardiac conduction device overlying the left hemithorax with lead proj ecting over the right ventricle. Musculoskeletal: No acute osseous pathology. New lucent area in the proximal left humerus unclear if it's positioning new from 02/27/2025 Other findings: None Lines/Tubes: Endotracheal tube with distal tip 6.8 cm above the polo. Nasogastric tube with its distal tip and side-port projecting under the diaphragm. Left internal jugular central venous catheter with distal tip at the cavoatrial junction. IMPRESSION: 1. Similar aeration with persistent multifocal airspace opacities. 2. Stable support lines and tubes. 3. lucent lesion in the proximal left humerus new from 03/01/2025. Consider dedicated humerus plain abilio m radiographs. [facility], , 03/03/2025 7:14 AM
[2025-03-03] MEDS: MAGNESIUM SULFATE-D5W PMX 1 GM in DEXTROSE/WATER 1 100ML.BAG IVPB ONE (08:17)
[2025-03-03] MEDS: ANIDULAFUNGIN 100 MG in SODIUM CHLORIDE 0.9% 100 ML IVPB SCH (09:59)
[2025-03-03 11:45] LABS: Glucose,Whole Blood 134 mg/dL (70-110)
--- NOTE | 2025-03-03 12:03 | P.PN ---
Subjective Progress Note Date: 03/03/25 Principal diagnosis: Acute hypoxic respiratory failure secondary to acute pulmonary edema 54-year-old female patient got transferred to the intensive care unit because of acute respiratory distress, hypoxemia and diminished level of consciousness. The patient was originally hospitalized on 02/20/2025 for generalized weakness and a fall. She has multiple medical problems and comorbidities. I was involved in her care back in 2021 and at that time the patient had a COVID-19 related pneumonia with prolonged respiratory failure requiring a tracheostomy tube insertion and subsequent removal to facilitate her weaning off the mechanical ventilator. She is also known to have coronary artery disease and cardiac catheterization back in 2008 showed minimal CAD, cardiomyopathy and the most recent echocardiogram from August 2023 showed an ejection fraction of 35 to 40% and global LV hypokinesis. The patient also has paroxysmal atrial fibrillation she has a AICD in place. 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 During this current hospitalization, the patient was seen by cardiology. The patient was also seen by neurology and CT of the brain and the neck revealed no evidence of any dissection of the cervical internal carotid artery or vertebral artery. The patient was asked to continue anticoagulation with Eliquis. The patient was asked to continue Keppra 1.5 g twice a day and Tegretol 200 mg 3 times daily and gabapentin 600 mg p.o. 3 times daily regarding her previous history of seizure disorder. The patient was also seen by wound services as the patient has multiple nonhealing ulceration limited to skin breakdown and bullous pemphigoid. Zinc barrier cream was offered to the patient. The patient was also seen by infectious diseases and the patient was offered broad-spectrum antibiotics with vancomycin Overnight, the patient was hypotensive. The patient was given a bolus of fluid and IV albumin. Subsequently, the patient went into acute respiratory distress and the patient was severely hypoxic. She got transferred to the intensive care unit. Immediately, the patient was intubated and placed on the mechanical ventilator due to lack of oxygenation and altered mentation. Reviewed the chest x-ray postintubation and the patient has diffuse bilateral pulmonary infiltrates consistent with acute pulmonary edema. There is large amount of airspace disease bilaterally and suspect small pleural effusion. At this point in time, the patient is still intubated on a mechanical ventilator. Noted she was started on propofol and she was also given a dose of Nimbex to maintain synchrony with the mechanical ventilator and improve oxygenation. She is currently on assist-control mode at rate of 60, tidal volume of 400, FiO2 100% with a PEEP of 16. The most recent blood gases showed a pH of 7.23 with a PCO2 of 63 and PO251. She is currently on propofol running at 30 mcg/kg/min. Cardiac rhythm is sinus. Blood pressure is stable. No pressors. The patient was given Lasix 40 mg IV every 12 hours. Urine output since arrival to the ICU was in order of more than 200 cc an hour. On today's evaluation of 02/24/2025, the patient is being seen for a follow-up. The patient remains intubated on a mechanical ventilator. The patient is currently on propofol running at 30 mcg/kg/min. The patient is currently off paralytics and Nimbex has been discontinued. The patient remains assist-control mode of mechanical ventilation at rate of 24, tidal volume of 400, FiO2 50% with a PEEP of 5. Blood gases show a pH of 7.54 with a [id number] and PO2 of 188. Chest x-ray shows improvement of bilateral pulmonary edema. The patient remains on a combination of IV cefepime and aztreonam, and vancomycin.. The patient remains on IV Lasix. Fluid balance is -3 L over the past 24 hours and the patient remains hemodynamically stable. The patient is in sinus tachycardia. The patient has no fever. The white cell, 11.3 with a hemoglobin 8.3 and a platelet count of 311. Sodium is at 140, BUN is 17 and a creatinine of 0.54 and potass ium level is at 3.7. The patient remains on anticoagulation with Eliquis 5 mg p.o. twice a day. Rest of the home medications have been resumed. CAT scan of the brain was also performed yesterday and it showed no acute intracranial process. There is a stable remote right large MCA distribution infarct and encephalomalacia. Remote left frontal lobe infarct with encephalomalacia. Echocardiogram was also done on 02/23/2025 and the patient has developed systolic heart failure with a left ventricular ejection fraction of 25 to 30%. There is moderate reduction of the global LV function. There is severe increased left ventricular diastolic volume. There is also mild to moderate mitral regurg itation. No other significant valvular abnormalities has been noted. Remains on Lasix 40 mg IV every 12 hours. Continues to receive wound Care. Seen today on 02/25/2025, patient remains in the ICU, intubated and mechanically ventilated, on assist-control rate of 24 tidal volume 400 FiO2 40% and PEEP of 5. Patient is still requiring pressors/norepinephrine at 0.03 mcg/kg/min she is on Precedex at 0.4 mcg/kg/h patient is on Lasix 40 mg IV push every 12 hours she has E. coli in her urine and she is receiving cefepime and Azactam. Her echocardiogram showed severe LV dysfunction with ejection fraction of 25 to 30% patient was intubated on 02/23, still receiving diuretics. Today I plan to give the patient a trial of weaning with pressure support of 10 and CPAP, however her MIP was very low and I decided to continue pressure support and CPAP as long as possible and hopefully repeat her again and hopefully try to wean today. At this point in time she is not ready for extubation. Chest x-ray is showing evidence of improving pulmonary edema. Her WBC is 9.8 hemoglobin is 8.1 basic metabolic profile is normal except for low potassium of 3.3 BUN is 23 creatinine 0.65. Patient was seen today on 02/26/2025, remains in the ICU, intubated and mechanically ventilated, patient is on pressure support and CPAP mode of mechanical ventilation, she has been on it since yesterday, patient is also on 40% FiO2, weaning parameters seem to be a bit better today compared to yesterday, patient follows simple instructions but she does not open her eyes. She is off norepinephrine she used to be on 0.02 mcg/kg/min, patient is hemodynamically stable at this point, however I am a bit concerned about her mental status especially when she does not open her eyes. Seems to be very weak and frail, I did recommend extubation to a pressure support of 10/5 and FiO2 of 40%. Her labs were all reviewed ABG today showed a pO2 of 110 pCO2 43 pH of 7.47 and this was on CPAP earlier. WBC count is 10.8 hemoglobin 8.7, basic metabolic profile is normal potassium is a bit low at 3.4 renal profile is normal. Chest x-ray continues to show multifocal airspace opacities and stable support lines and tubes. Seen today on 02/27/2025, patient was extubated today to BiPAP, she was marginal to begin with, but I felt we had the best window to extubate yesterday based on all the parameters. Patient remained marginal post extubation, and she required BiPAP at relatively high FiO2. This morning, patient ended up with worsening hypoxia requiring intubation chest x-ray postintubation showed almost near complete opacification of the left lung. Hence I performed bronchoscopy and I was able to suction a mucous plug in the left upper lobe which was most likely in the left mainstem bronchus at the time of the chest x-ray but moved up to the left upper lobe. This was suctioned and follow-up chest x-ray showed significant improvement. Patient is now intubated, mechanically ventilated, she is on assist-control rate of 24 tidal volume 400 FiO2 100% PEEP of 10 however later on I cut down her FiO2 down to 50%. ABG done on 50% FiO2 showed a pO2 of 65 pCO2 48 pH of 7.45 hence we kept the patient on the same vent settings as noted earlier. Patient is also requiring propofol at 60 mg/kg/min IV fluid KVO vital HP at she has now a right brachial arterial line, remains on cefepime. Follow-up chest x-ray post bronchoscopy showed significantly improved aeration of the left lung and also showed stable support lines and tubes. Patient was seen today on 02/28/2025, remains in the ICU, intubated, mechanically ventilated, she is on assist-control rate of 20 tidal volume 400 FiO2 40% and PEEP is 8 I brought down to 5. ABG showed a pO2 of 122 pCO2 48 pH of 7.48. Patient had seizure-like activity earlier this morning, being seen by neurology, EEG is pending. Remains on propofol at 50 mcg/kg/min she is on IV fluid 0.9 normal saline, she is not requiring any pressors, seizure-like activity respond ed well to Ativan earlier. Patient is sedated, her WBC count is 15.8 hemoglobin is 9, basic metabolic profile is normal except for low potassium of 3.4 being addressed accordingly as per protocol. Chest x-ray showed significant improvement compared to yesterday. Patient was seen today on , patient remains in the ICU intubated mechanically ventilated, on assist-control rate of 20 tidal volume 400 FiO2 40% PEEP of 5 ABG showed a pO2 of 130 pCO2 49 pH of 7.45 hence no changes made in her vent settings. Patient remains on norepinephrine at 0.09 mcg/kg/min also on propofol at 40 mcg/kg/min vital HP at 58 mL/h and her D5W is at 50 mL/h. Slight increase noted in her sodium up to 147 today. Sputum is positive for MSSA urine is positive for E. coli patient is still on cefepime and vancomycin. She is remains on Eliquis, I went ahead today and discontinued her Lasix. Chest x-ray showed no evidence of pulmonary edema, but she does have multifocal opacities more so in the right lower lobe suspicious for pneumonia. Seen today on 03/02/2025, patient remains in the ICU intubated mechanically ventilated on assist-control rate of 20 tidal volume 400 FiO2 40% PEEP of 5 ABG showed a pO2 of 128 pCO2 43 pH of 7.47 has FiO2 was cut down to 35%. Last night the patient had a Tmax of 102, remains on antibiotics as per infectious disease including vancomycin and cefepime. Patient is on propofol at 35 mg/kg/min she is requiring norepinephrine at 0.07 mcg/kg/min. Patient was initially intubated on 02/22 extubated on 02/26 reintubated on 02/27. Her mental status remains marginal at best, patient follows simple instructions but she does not seem to open her eyes, and she does not maintain any eye contact. WBC count today is 8.4 hemoglobin 7.3 platelets are normal ABG as noted earlier electrolytes are normal except for low potassium of 3.2, renal profile is normal chest x-ray showed mi nimal multifocal airspace opacities with left lower lobe atelectasis and possibly a small tiny left pleural effusion. Patient was seen today on 03/03/2025, remains in the ICU, intubated and mechanically ventilated, on assist-control rate of 20 tidal volume 400 FiO2 35% PEEP of 5 ABG showed a pO2 of 107 pCO2 39 pH of 7.49. Propofol is presently on hold patient is on IV fluid 0.9 at 50 cc/h she is also receiving vital HP at 15 mL/h. Her sputum has been positive for MSSA her urine is positive for E. coli. Her antibiotics are being addressed by infectious disease on the case. WBC count is 8.1 hemoglobin 7.2 platelets are 302 basic metabolic profile is normal, renal profile is normal. Blood sugar is 134. Considering the patient is awake and at least she is opening her eyes although she does not maintain a good eye contact, this is the best she has been neurologically, and I will go ahead and give the patient another trial of weaning utilizing pressure support of 12 and CPAP. And will decide whether to taper down her pressure support or to proceed to weaning and extubation sometime later today. If not we will try the same thing again tomorrow. Chest x-ray today showed minimal multifocal airspace opacities. Objective - Vital Signs Vital signs: Vital Signs Temp 99.7 F H 03/03/25 08:00 Pulse 86 03/03/25 11:00 Resp 12 03/03/25 11:00 BP 119/61 03/03/25 10:00 Pulse Ox 96 03/03/25 11:00 FiO2 35 03/03/25 11:00 Intake & Output 03/02/25 03/03/25 03/03/25 18:59 06:59 18:59 Intake Total 1933.117 5935.349 991 Output Total 1585 1145 765 Balance 295.859 543.349 226 Weight 58.7 kg Intake: IV 111 786 237 Arterial Line 36 36 12 Cefepime 2 gm In Sodium 75 100 25 Chloride 0.9% 100 ml @ 25 mls/hr IVPB Q8H [facility] Rx#: [id number] Dextrose 5% in Water 1, 550 200 000 ml @ 50 mls/hr IV . Q20H [facility] Rx#:[id number] Magnesium Sulfate-D5w Pmx 100 1 gm In Dextrose/Water 1 100ml.bag @ 100 mls/hr IVPB ONCE [facility] Rx#: [id number] Intake, IV Titration 1013.859 116.349 434 Amount Anidulafungin 100 mg In 252 84 Sodium Chloride 0.9% 100 ml @ 84 mls/hr IVPB DAILY [facility] Rx#:[id number] Dextrose 5% in Water 1, 450 50 000 ml @ 50 mls/hr IV . Q20H [facility] Rx#:[id number] Magnesium Sulfate-D5w Pmx 100 1 gm In Dextrose/Water 1 100ml.bag @ 100 mls/hr IVPB ONCE ONE Rx#: [id number] Norepinephrine 8 mg In 75.670 9.131 Sodium Chloride 0.9% 250 ml @ 0.03 MCG/KG/MIN 3. 628 mls/hr IV .Q24H [facility] Rx#:[id number] Vancomycin 1,250 mg In 150 Sodium Chloride 0.9% 250 ml @ 125 mls/hr IVPB Q12H [facility] Rx#:[id number] Vancomycin 1,250 mg In 250 Sodium Chloride 0.9% 250 ml @ 125 mls/hr IVPB Q12HR@0600,1800 [facility] Rx#: [id number] propofoL 1,000 mg In 86.189 57.218 Empty Bag 1 bag @ 15 MCG/ KG/MIN 5.625 mls/hr IV . [id number] [facility] Rx#:[id number] Tube Feeding 696 696 290 Other 60 90 30 Output: Urine 1585 1145 765 Other: Voiding Method Indwelling Catheter Indwelling Catheter Indwelling Catheter ABP, PAP, CO, CI - Last Documented Arterial Blood Pressure 116/51 - Exam GENERAL: Revealed 54-year-old female on mechanical ventilation awake, follows instructions opening eyes but no eye contact. HEENT: PERRLA, EOMI, nonicteric. Endotracheal tube and orogastric tube are intact CARDIOVASCULAR: S1 and S2 present. No murmurs, rubs, or gallops. PULMONARY: Symmetrical chest expansion good breath sound bilaterally no rhonchi no wheezes ABDOMEN: Soft, nontender, nondistended, normoactive bowel sounds. No palpable organomegaly. MUSCULOSKELETAL: No joint swelling or deformity. EXTREMITIES: No cyanosis, clubbing, or pedal edema. Skin:-Friable bullae noted with surrounding erythema -NEUROLOGICAL: Arousable, follows instructions, opening eyes but does not maintain a good eye contact. Psychiatric: Could not fully assess. - Labs CBC & Chem 7: 03/03/25 04:00 03/03/25 04:00 Labs: Abnormal Lab Results - Last 24 Hours (Table) 03/02/25 03/03/25 03/03/25 Range/Units 17:51 02:46 04:00 RBC (4.10-5.20) 10*6/uL Hgb (12.0-15.0) g/dL Hct (37.2-46.3) % MCH (27.0-32.0) pg MCHC (32.0-37.0) g/dL Immature Gran # (0.00-0.04) 10*3/uL Eosinophils # (0.04-0.35) 10*3/uL ABG pH (7.35-7.45) ABG HCO3 (21-25) mmol/L ABG Total CO2 (19-24) mmol/L ABG O2 Saturation (94-97) % Hemoglobin (11.4-16.0) gm/dL Sodium 135 L (137-145) mmol/L BUN 19 H (7-17) mg/dL Creatinine 0.44 L (0.52-1.04) mg/dL Glucose 120 H (74-99) mg/dL POC Glucose (mg/dL) 125 H 131 H (70-110) mg/dL Calcium 8.0 L (8.4-10.2) mg/dL 03/03/25 03/03/25 03/03/25 Range/Units 04:00 04:44 11:44 RBC 2.69 L (4.10-5.20) 10*6/uL Hgb 7.2 L (12.0-15.0) g/dL Hct 24.2 L (37.2-46.3) % MCH 26.8 L (27.0-32.0) pg MCHC 29.8 L (32.0-37.0) g/dL Immature Gran # 0.08 H (0.00-0.04) 10*3/uL Eosinophils # 0.89 H (0.04-0.35) 10*3/uL ABG pH 7.49 H (7.35-7.45) ABG HCO3 30 H (21-25) mmol/L ABG Total CO2 31 H (19-24) mmol/L ABG O2 Saturation 98.7 H (94-97) % Hemoglobin 7.9 L (11.4-16.0) gm/dL Sodium (137-145) mmol/L BUN (7-17) mg/dL Creatinine (0.52-1.04) mg/dL Glucose (74-99) mg/dL POC Glucose (mg/dL) 134 H (70-110) mg/dL Calcium (8.4-10.2) mg/dL Microbiology - Last 24 Hours (Table) 03/02/25 16:51 Gram Stain - Preliminary Sputum 02/27/25 09:02 Blood Culture - Preliminary Blood Assessment and Plan Assessment: Impression: Acute hypoxic respiratory failure secondary to acute pulmonary edema Acute systolic congestive heart failure ejection fraction of 25 to 30% Bullous pemphigoid disease Paroxysmal atrial fibrillation History of seizure disorder Chronic bilateral lower 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 Had to be reintubated on 02/27/2025. Multifocal opacities noted on chest x-ray today suggestive of MSSA pneumonia with positive sputum cultures for MSSA. Recommendation: Continue ventilatory support, but will try the patient today on pressure support of 14 and CPAP and likely taper down the pressure support to 8 and decide whether the patient could be weaned and extubated today. Daily interruption of sedation Continue antibiotics Continue to hold Lasix Continue amiodarone Continue Eliquis Continue wound care Continue Seroquel Continue nutritional support/enteral feeding presently on vital HP at goal Continue GI DVT prophylaxis Remains critically ill Consider tracheostomy and PEG tube placement if the patient fails weaning Critical care time is 33 Time with Patient: Greater than 30
--- NOTE | 2025-03-03 12:32 | P.PN ---
Subjective Progress Note Date: 03/03/25 The patient was seen this morning. She continues to be intubated on mechanical ventilation she continues to be hemodynamically stable requiring norepinephrine but she is requiring less norepinephrine compared to before. Urine output continues to be marginal. She is on Lasix IV at 40 mg twice daily. She is not on any cardiomyopathy medications because of the hemodynamical instability and requiring norepinephrine. The echo showed an EF between 25 to 30%. The physical examination is remarkable for intubated patient on mechanical ventilation with diminished breathing sounds bilaterally and regular rate and rhythm. February 26, 2025 The patient was seen and evaluated this morning. She continues to be intubated. She is still on Lasix IV. The pressure still low requiring norepinephrine but we are coming down with a dose. The chest x-ray was reviewed this morning and seems to be overall better in terms of fluid overload. We potentially can come down with a dose of IV Lasix and possible wean the patient off from norepinephrine. The physical examination is remarkable for regular rhythm with diminished breathing sounds bilaterally and mild bilateral lower extremity edema and skin changes noted. She is on oral anticoagulation. February 27, 2025 The patient was seen and evaluated this morning. She was extubated yesterday and then she reintubated again because she developed hypoxic respiratory failure. The chest x-ray showed complete opacification of the left lung. She is in process of having possible bronchoscopy. Hemodynamically she remains unstable requiring small dose of norepinephrine. The physical examination is remarkable for regular rate and rhythm with a systolic murmur at the right and left upper sternal border and wheezing was noted also. February 28, 2025 The patient was seen and evaluated this morning. She underwent bronchoscopy yesterday. The chest x-ray today appears to be better. The complete opacification of the left lung has resolved completely. Currently she is intubated on mechanical ventilation. She is off norepinephrine at this point and hemodynamically stable and maintaining normal sinus mechanism. Physical examination is remarkable for regular rhythm with a systolic murmur at the right upper sternal border and clear breathing sounds bilaterally and no edema was noted in the lower extremities with extensive skin rash. March 01, 2025 Intubed and sedated. She is back on levophed. + fever, cxr ok March 02, 2025 Pt seen in ICU. She remains intubated, off sedation she does follow commands per nursing. She is still on levophed. March 03, 2025 Patient seen in ICU. Remains intubated, off sedation, following simple commands. Hemoglobin 7.2, creatinine 0.44. She had run of VT 120 beats overnight. Off levophed since overnight. Assessment Acute hypoxic respiratory failure Severe cardiomyopathy Heart failure with reduced ejection fraction Paroxysmal atrial fibrillation Sinus rhythm at this point Multiple comorbid conditions including anemia Plan: She has been off the pressors, will start Lopressor 12.5mg po BID. Continue the current medical regimen Continue oral anticoagulation and amiodarone Monitor the kidney function and electrolytes and hemoglobin Further recommendations pending clinic course Pt seen and examined in rounds with Dr. Garibay Signing provider agrees with the documented findings, assessment, and plan of care documented by BIOLOGY PROFESSOR as a scribe. Objective - Vital Signs Vital signs: Vital Signs Temp 99.7 F H 03/03/25 08:00 Pulse 86 03/03/25 11:00 Resp 12 03/03/25 11:00 BP 119/61 03/03/25 10:00 Pulse Ox 96 03/03/25 11:00 FiO2 35 03/03/25 11:00 Intake & Output 03/02/25 03/03/25 03/03/25 18:59 06:59 18:59 Intake Total 3257.607 9244.349 991 Output Total 1585 1145 765 Balance 295.859 543.349 226 Weight 58.7 kg Intake: IV 111 786 237 Arterial Line 36 36 12 Cefepime 2 gm In Sodium 75 100 25 Chloride 0.9% 100 ml @ 25 mls/hr IVPB Q8H [facility] Rx#: [id number] Dextrose 5% in Water 1, 550 200 000 ml @ 50 mls/hr IV . Q20H [facility] Rx#:[id number] Magnesium Sulfate-D5w Pmx 100 1 gm In Dextrose/Water 1 100ml.bag @ 100 mls/hr IVPB ONCE [facility] Rx#: [id number] Intake, IV Titration 1013.859 116.349 434 Amount Anidulafungin 100 mg In 252 84 Sodium Chloride 0.9% 100 ml @ 84 mls/hr IVPB DAILY [facility] Rx#:[id number] Dextrose 5% in Water 1, 450 50 000 ml @ 50 mls/hr IV . Q20H [facility] Rx#:[id number] Magnesium Sulfate-D5w Pmx 100 1 gm In Dextrose/Water 1 100ml.bag @ 100 mls/hr IVPB ONCE [facility] Rx#: [id number] Norepinephrine 8 mg In 75.670 9.131 Sodium Chloride 0.9% 250 ml @ 0.03 MCG/KG/MIN 3. 628 mls/hr IV .Q24H [facility] Rx#:[id number] Vancomycin 1,250 mg In 150 Sodium Chloride 0.9% 250 ml @ 125 mls/hr IVPB Q12H [facility] Rx#:[id number] Vancomycin 1,250 mg In 250 Sodium Chloride 0.9% 250 ml @ 125 mls/hr IVPB Q12HR@0600,1800 [facility] Rx#: [id number] propofoL 1,000 mg In 86.189 57.218 Empty Bag 1 bag @ 15 MCG/ KG/MIN 5.625 mls/hr IV . [id number] [facility] Rx#:[id number] Tube Feeding 696 696 290 Other 60 90 30 Output: Urine 1585 1145 765 Other: Voiding Method Indwelling Catheter Indwelling Catheter Indwelling Catheter ABP, PAP, CO, CI - Last Documented Arterial Blood Pressure 116/51 - Labs CBC & Chem 7: 03/03/25 04:00 03/03/25 04:00 Labs: Abnormal Lab Results - Last 24 Hours (Table) 03/02/25 03/02/25 03/03/25 Range/Units 11:43 17:51 02:46 RBC (4.10-5.20) 10*6/uL Hgb (12.0-15.0) g/dL Hct (37.2-46.3) % MCH (27.0-32.0) pg MCHC (32.0-37.0) g/dL Immature Gran # (0.00-0.04) 10*3/uL Eosinophils # (0.04-0.35) 10*3/uL ABG pH (7.35-7.45) ABG HCO3 (21-25) mmol/L ABG Total CO2 (19-24) mmol/L ABG O2 Saturation (94-97) % Hemoglobin (11.4-16.0) gm/dL Sodium (137-145) mmol/L BUN (7-17) mg/dL Creatinine (0.52-1.04) mg/dL Glucose (74-99) mg/dL POC Glucose (mg/dL) 188 H 125 H 131 H (70-110) mg/dL Calcium (8.4-10.2) mg/dL 03/03/25 03/03/25 03/03/25 Range/Units 04:00 04:00 04:44 RBC 2.69 L (4.10-5.20) 10*6/uL Hgb 7.2 L (12.0-15.0) g/dL Hct 24.2 L (37.2-46.3) % MCH 26.8 L (27.0-32.0) pg MCHC 29.8 L (32.0-37.0) g/dL Immature Gran # 0.08 H (0.00-0.04) 10*3/uL Eosinophils # 0.89 H (0.04-0.35) 10*3/uL ABG pH 7.49 H (7.35-7.45) ABG HCO3 30 H (21-25) mmol/L ABG Total CO2 31 H (19-24) mmol/L ABG O2 Saturation 98.7 H (94-97) % Hemoglobin 7.9 L (11.4-16.0) gm/dL Sodium 135 L (137-145) mmol/L BUN 19 H (7-17) mg/dL Creatinine 0.44 L (0.52-1.04) mg/dL Glucose 120 H (74-99) mg/dL POC Glucose (mg/dL) (70-110) mg/dL Calcium 8.0 L (8.4-10.2) mg/dL Microbiology - Last 24 Hours (Table) 03/02/25 16:51 Gram Stain - Preliminary Sputum 02/27/25 09:02 Blood Culture - Preliminary Blood
--- NOTE | 2025-03-03 12:56 | P.PN ---
Subjective 54-year-old female was admitted secondary to extensive wound infections. Patient has history of bullous pemphigoid. Patient was in sepsis on admission, then had septic shock. Patient went into acute respiratory failure secondary to congestive heart failure exacerbation patient has EF of around 25 to 30%. Patient was intubated patient is still on ventilatory support patient is on spontaneous breathing trial since today morning. Patient was on dobutamine drip and IV Lasix drip presently off dobutamine drip still on IV Lasix drip. Patient is a tolerating spontaneous breathing trial. Her white count improved but continues to have fevers patient was on cefepime vancomycin was added couple days ago patient is also on Eraxis. Patient is on ventilatory support with PEEP of 5 FiO2 of 35%.. Off sedation since morning was on propofol drip PHYSICAL EXAMINATION: GENERAL: The patient is intubated HEENT: Pupils are round and equally reacting to light. EOMI. No scleral icterus. No conjunctival pallor. Normocephalic, atraumatic. No pharyngeal erythema. No thyromegaly. CARDIOVASCULAR: S1 and S2 present. No murmurs, rubs, or gallops. PULMONARY: Chest is clear to auscultation, no wheezing or crackles. ABDOMEN: Soft, nontender, nondistended, normoactive bowel sounds. No palpable organomegaly. MUSCULOSKELETAL: No joint swelling or deformity. EXTREMITIES: No cyanosis, clubbing, or pedal edema. NEUROLOGICAL: Intubated SKIN: Multiple areas of skin ulceration and breakdown seen Assessment and plan Acute hypoxic respiratory failure secondary to congestive heart failure exacerbation, remains on IV Lasix drip and ventilatory support Acute systolic heart failure Severe sepsis and septic shock shock resolved Bilateral lower extremity cellulitis thought secondary to MRSA Hypotension secondary to above Worsening weakness on the left side associated with fall without syncope and transient slurred speech and some swallowing difficulty, rule out new stroke or worsening stroke Bullous pemphigoid with multiple eroded and friable bullae throughout the trunk and extremities with surrounding erythema on doxycycline and prednisone previ ously Cardiomyopathy with ejection fraction 35% Coronary artery disease History of PE History of stroke with persistent hemiplegia Moderate bilateral internal carotid artery stenosis Seizure disorder with history of breakthrough seizure Generalized weakness Continue ventilatory support, weaning trial today Monitor CBC Monitor CMP Continue telemetry monitoring Continue vent management Aggressive bronchopulmonary hygiene Repeat blood culture sputum cultures ordered Continue cefepime, vancomycin and Eraxis Continue with Vimpat and Keppra Continue Eliquis 5 mg twice daily for stroke prevention from A-fib. continue seizure medications including Keppra 1500 mg twice daily, Tegretol 200 mg 3 times daily and gabapentin 600 mg 3 times daily. ID following, Pulmonology following, Cardiology following, recommendations noted Objective - Vital Signs Vital signs: Vital Signs Temp 99.7 F H 03/03/25 08:00 Pulse 83 03/03/25 12:00 Resp 14 03/03/25 12:00 BP 92/52 03/03/25 12:00 Pulse Ox 96 03/03/25 12:00 FiO2 35 03/03/25 12:10 Intake & Output 03/02/25 03/03/25 03/03/25 18:59 06:59 18:59 Intake Total 7552.432 8011.349 1161 Output Total 1585 1145 890 Balance 295.859 543.349 271 Weight 58.7 kg Intake: IV 111 786 265 Arterial Line 36 36 15 Cefepime 2 gm In Sodium 75 100 50 Chloride 0.9% 100 ml @ 25 mls/hr IVPB Q8H [facility] Rx#: [id number] Dextrose 5% in Water 1, 550 200 000 ml @ 50 mls/hr IV . Q20H [facility] Rx#:[id number] Magnesium Sulfate-D5w Pmx 100 1 gm In Dextrose/Water 1 100ml.bag @ 100 mls/hr IVPB ONCE [facility] Rx#: [id number] Intake, IV Titration 1013.859 116.349 518 Amount Anidulafungin 100 mg In 252 168 Sodium Chloride 0.9% 100 ml @ 84 mls/hr IVPB DAILY [facility] Rx#:[id number] Dextrose 5% in Water 1, 450 50 000 ml @ 50 mls/hr IV . Q20H [facility] Rx#:[id number] Magnesium Sulfate-D5w Pmx 100 1 gm In Dextrose/Water 1 100ml.bag @ 100 mls/hr IVPB ONCE [facility] Rx#: [id number] Norepinephrine 8 mg In 75.670 9.131 Sodium Chloride 0.9% 250 ml @ 0.03 MCG/KG/MIN 3. 628 mls/hr IV .Q24H [facility] Rx#:[id number] Vancomycin 1,250 mg In 150 Sodium Chloride 0.9% 250 ml @ 125 mls/hr IVPB Q12H [facility] Rx#:[id number] Vancomycin 1,250 mg In 250 Sodium Chloride 0.9% 250 ml @ 125 mls/hr IVPB Q12HR@0600,1800 [facility] Rx#: [id number] propofoL 1,000 mg In 86.189 57.218 Empty Bag 1 bag @ 15 MCG/ KG/MIN 5.625 mls/hr IV . [id number] [facility] Rx#:[id number] Tube Feeding 696 696 348 Other 60 90 30 Output: Urine 1585 1145 890 Other: Voiding Method Indwelling Catheter Indwelling Catheter Indwelling Catheter ABP, PAP, CO, CI - Last Documented Arterial Blood Pressure 89/84 - Labs CBC & Chem 7: 03/03/25 04:00 03/03/25 04:00 Labs: Abnormal Lab Results - Last 24 Hours (Table) 03/02/25 03/03/25 03/03/25 Range/Units 17:51 02:46 04:00 RBC (4.10-5.20) 10*6/uL Hgb (12.0-15.0) g/dL Hct (37.2-46.3) % MCH (27.0-32.0) pg MCHC (32.0-37.0) g/dL Immature Gran # (0.00-0.04) 10*3/uL Eosinophils # (0.04-0.35) 10*3/uL ABG pH (7.35-7.45) ABG HCO3 (21-25) mmol/L ABG Total CO2 (19-24) mmol/L ABG O2 Saturation (94-97) % Hemoglobin (11.4-16.0) gm/dL Sodium 135 L (137-145) mmol/L BUN 19 H (7-17) mg/dL Creatinine 0.44 L (0.52-1.04) mg/dL Glucose 120 H (74-99) mg/dL POC Glucose (mg/dL) 125 H 131 H (70-110) mg/dL Calcium 8.0 L (8.4-10.2) mg/dL 03/03/25 03/03/25 03/03/25 Range/Units 04:00 04:44 11:44 RBC 2.69 L (4.10-5.20) 10*6/uL Hgb 7.2 L (12.0-15.0) g/dL Hct 24.2 L (37.2-46.3) % MCH 26.8 L (27.0-32.0) pg MCHC 29.8 L (32.0-37.0) g/dL Immature Gran # 0.08 H (0.00-0.04) 10*3/uL Eosinophils # 0.89 H (0.04-0.35) 10*3/uL ABG pH 7.49 H (7.35-7.45) ABG HCO3 30 H (21-25) mmol/L ABG Total CO2 31 H (19-24) mmol/L ABG O2 Saturation 98.7 H (94-97) % Hemoglobin 7.9 L (11.4-16.0) gm/dL Sodium (137-145) mmol/L BUN (7-17) mg/dL Creatinine (0.52-1.04) mg/dL Glucose (74-99) mg/dL POC Glucose (mg/dL) 134 H (70-110) mg/dL Calcium (8.4-10.2) mg/dL Microbiology - Last 24 Hours (Table) 03/02/25 16:51 Gram Stain - Preliminary Sputum 02/27/25 09:02 Blood Culture - Preliminary Blood
[2025-03-03] MEDS: METOPROLOL TARTRATE 12.5 MG TAB PO SCH (13:39)
[2025-03-03] MEDS: VANCOMYCIN 1,000 MG in SODIUM CHLORIDE 0.9% 250 ML IVPB SCH (15:43)
--- NOTE | 2025-03-03 16:53 | P.PN ---
Subjective Progress Note Date: 03/03/25 Principal diagnosis: Reason for follow-up is multiple skin lesion question of cellulitis and multiple antibiotic allergies Patient is a 54-year-old female with a past medical history significant for PE seizure disorder coronary artery disease has been diagnosed with bullous pemphigoid patient has been brought into the hospital concerning for weakness patient did have multiple skin lesions concerning for cellulitis prompting this consultation. On today's evaluation that is 03/03/2025, Patient did have improvement of her fever pattern with a temperature 100 degrees 100 and 4 AM patient seem to be hemodynamically more stable requiring less pressor support patient FiO2 stable at 35% no other changes reported by the nursing staff. Patient white count is 8.11, creatinine 0.4 4 repeat blood and sputum cultures currently pending Objective - Vital Signs Vital signs: Vital Signs Temp 99.7 F H 03/03/25 08:00 Pulse 83 03/03/25 12:00 Resp 14 03/03/25 12:00 BP 92/52 03/03/25 12:00 Pulse Ox 96 03/03/25 12:00 FiO2 35 03/03/25 12:10 Intake & Output 03/02/25 03/03/25 03/03/25 18:59 06:59 18:59 Intake Total 8543.458 5444.349 1161 Output Total 1585 1145 890 Balance 295.859 543.349 271 Weight 58.7 kg Intake: IV 111 786 265 Arterial Line 36 36 15 Cefepime 2 gm In Sodium 75 100 50 Chloride 0.9% 100 ml @ 25 mls/hr IVPB Q8H [facility] Rx#: [id number] Dextrose 5% in Water 1, 550 200 000 ml @ 50 mls/hr IV . Q20H [facility] Rx#:[id number] Magnesium Sulfate-D5w Pmx 100 1 gm In Dextrose/Water 1 100ml.bag @ 100 mls/hr IVPB ONCE [facility] Rx#: [id number] Intake, IV Titration 1013.859 116.349 518 Amount Anidulafungin 100 mg In 252 168 Sodium Chloride 0.9% 100 ml @ 84 mls/hr IVPB DAILY [facility] Rx#:[id number] Dextrose 5% in Water 1, 450 50 000 ml @ 50 mls/hr IV . Q20H [facility] Rx#:[id number] Magnesium Sulfate-D5w Pmx 100 1 gm In Dextrose/Water 1 100ml.bag @ 100 mls/hr IVPB ONCE [facility] Rx#: [id number] Norepinephrine 8 mg In 75.670 9.131 Sodium Chloride 0.9% 250 ml @ 0.03 MCG/KG/MIN 3. 628 mls/hr IV .Q24H [facility] Rx#:[id number] Vancomycin 1,250 mg In 150 Sodium Chloride 0.9% 250 ml @ 125 mls/hr IVPB Q12H [facility] Rx#:[id number] Vancomycin 1,250 mg In 250 Sodium Chloride 0.9% 250 ml @ 125 mls/hr IVPB Q12HR@0600,1800 [facility] Rx#: [id number] propofoL 1,000 mg In 86.189 57.218 Empty Bag 1 bag @ 15 MCG/ KG/MIN 5.625 mls/hr IV . [id number] [facility] Rx#:[id number] Tube Feeding 696 696 348 Other 60 90 30 Output: Urine 1585 1145 890 Other: Voiding Method Indwelling Catheter Indwelling Catheter Indwelling Catheter ABP, PAP, CO, CI - Last Documented Arterial Blood Pressure 89/84 - Exam GENERAL DESCRIPTION: Middle-age female intubated on the vent RESPIRATORY SYSTEM: Unlabored breathing , decreased breath sounds at bases HEART: S1 S2 regular rate and rhythm , ABDOMEN: Soft , no tenderness SKIN: Multiple ulcerated lesions but no drainage - Labs CBC & Chem 7: 03/03/25 04:00 03/03/25 15:51 Labs: Abnormal Lab Results - Last 24 Hours (Table) 03/02/25 03/03/25 03/03/25 Range/Units 17:51 02:46 04:00 RBC (4.10-5.20) 10*6/uL Hgb (12.0-15.0) g/dL Hct (37.2-46.3) % MCH (27.0-32.0) pg MCHC (32.0-37.0) g/dL Immature Gran # (0.00-0.04) 10*3/uL Eosinophils # (0.04-0.35) 10*3/uL ABG pH (7.35-7.45) ABG HCO3 (21-25) mmol/L ABG Total CO2 (19-24) mmol/L ABG O2 Saturation (94-97) % Hemoglobin (11.4-16.0) gm/dL Sodium 135 L (137-145) mmol/L BUN 19 H (7-17) mg/dL Creatinine 0.44 L (0.52-1.04) mg/dL Glucose 120 H (74-99) mg/dL POC Glucose (mg/dL) 125 H 131 H (70-110) mg/dL Calcium 8.0 L (8.4-10.2) mg/dL 03/03/25 03/03/25 03/03/25 Range/Units 04:00 04:44 11:44 RBC 2.69 L (4.10-5.20) 10*6/uL Hgb 7.2 L (12.0-15.0) g/dL Hct 24.2 L (37.2-46.3) % MCH 26.8 L (27.0-32.0) pg MCHC 29.8 L (32.0-37.0) g/dL Immature Gran # 0.08 H (0.00-0.04) 10*3/uL Eosinophils # 0.89 H (0.04-0.35) 10*3/uL ABG pH 7.49 H (7.35-7.45) ABG HCO3 30 H (21-25) mmol/L ABG Total CO2 31 H (19-24) mmol/L ABG O2 Saturation 98.7 H (94-97) % Hemoglobin 7.9 L (11.4-16.0) gm/dL Sodium (137-145) mmol/L BUN (7-17) mg/dL Creatinine (0.52-1.04) mg/dL Glucose (74-99) mg/dL POC Glucose (mg/dL) 134 H (70-110) mg/dL Calcium (8.4-10.2) mg/dL Microbiology - Last 24 Hours (Table) 03/02/25 16:51 Gram Stain - Preliminary Sputum 02/27/25 09:02 Blood Culture - Preliminary Blood Assessment and Plan (1) Skin ulcer of multiple sites Current Visit: Yes Status: Acute Code(s): L98.499 - NON-PRESSURE CHRONIC ULCER OF SKIN OF SITES W UNSP SEVERITY SNOMED Code(s): 00141313 (2) Bullous pemphigoid Current Visit: Yes Status: Acute Code(s): L12.0 - BULLOUS PEMPHIGOID SNOMED Code(s): 27397119 (3) Allergy to multiple antibiotics Current Visit: No Status: Acute Code(s): Z88.1 - ALLERGY STATUS TO OTHER ANTIBIOTIC AGENTS SNOMED Code(s): 518682498 Plan: 1 Patient presented to hospital with fall due to generalized weakness and did have multiple skin lesion with outpatient diagnosis of bullous pemphigoid patient did have worsening of her respiratory status requiring intubation sputum culture positive for MSSA urine with E. coli drug-resistant E. coli sensitive to ceftriaxone 2patient did have worsening of respiratory status requiring reintubation bronchoscopy concerning for mucous plugging BAL culture so far negative 3patient did have improvement her fever pattern white count is normal currently covered with the cefepime Vanco and Eraxis while waiting for the culture to finalize Dictation was produced using [employer] dictation software. please excuse any grammatical, word or spelling errors. Time with Patient: Less than 30
[2025-03-03 17:48] LABS: Glucose,Whole Blood 134 mg/dL (70-110)
[2025-03-03 23:13] LABS: Glucose,Whole Blood 118 mg/dL (70-110)
[2025-03-04 05:18] LABS: Glucose,Whole Blood 135 mg/dL (70-110)
[2025-03-04 05:18] LABS: ABG HCO3 29 mmol/L (21-25); ABG PCO2 41 mmHg (35-45); ABG PH 7.46 (7.35-7.45); ABG PO2 111 mmHg (83-108); ABG TCO2 30 mmol/L (19-24)
[2025-03-04 05:30] LABS: Basophils # (A) 0.01 10*3/uL (0.00-0.10); Basophils % (A) 0.1 %; Eosinophils # (A) 0.83 10*3/uL (0.04-0.35); Eosinophils % (A) 9.6 %; HCT 24.4 % (37.2-46.3); HGB 7.3 g/dL (12.0-15.0); Lymphocytes # (A) 0.68 10*3/uL (0.90-5.00); Lymphocytes % (A) 7.9 %; MCH 26.7 pg (27.0-32.0); MCHC 29.9 g/dL (32.0-37.0); MCV 89.4 fL (80.0-97.0); Monocytes # (A) 0.31 10*3/uL (0.20-1.00); Monocytes % (A) 3.6 %; Neutrophils # (A) 6.71 10*3/uL (1.80-7.70); Neutrophils % (A) 77.4 %; Platelet Count 298 10*3/uL (140-440); RBC 2.73 10*6/uL (4.10-5.20); RDW 16.8 % (11.5-14.5); WBC 8.66 10*3/uL (4.50-10.00)
[2025-03-04 05:45] LABS: Allen Test Performed? No
[2025-03-04 05:51] LABS: African American GFR (CKD) >90 (>60 ml/min/1.73 sqM); Anion Gap 4 mmol/L; Blood Urea Nitrogen 17 mg/dL (7-17); Calcium 8.0 mg/dL (8.4-10.2); Carbon Dioxide 28 mmol/L (22-30); Chloride 104 mmol/L (98-107); Glucose 135 mg/dL (74-99); Magnesium 1.8 mg/dL (1.6-2.3); Non-African American GFR(CKD) >90 (>60 ml/min/1.73 sqM); Potassium 3.8 mmol/L (3.5-5.1); Sodium 136 mmol/L (137-145)
--- NOTE | 2025-03-04 06:35 | XR ---
EXAMINATION TYPE: XR chest 1V portable DATE OF EXAM: 03/04/2025 5:47 AM COMPARISON: Multiple radiographs, with the most recent on 03/03/2025 TECHNIQUE: XR chest 1V portable Portable AP radiograph of the chest. CLINICAL INDICATION:Female, 54 years old with history of assess lungs; shortness of breath. FINDINGS: Patient is rotated which limits evaluation. Lungs/Pleura: No focal consolidation, pneumothorax or pleural effusion. Pulmonary vascularity: Unremarkable. Heart/mediastinum: Cardiomediastinal silhouette is unremarkable. Atherosclerotic calcifications are seen in the aorta. Single-lead cardiac conduction device overlying the left hemithorax with lead proj ecting over the right ventricle. Musculoskeletal: No acute osseous pathology. Other findings: None Lines/Tubes: Endotracheal tube with distal tip 2.4 cm above the polo. Nasogastric tube with its distal tip and side-port projecting under the diaphragm. Left internal jugular central venous catheter with distal tip at the superior cavoatrial junction. IMPRESSION: 1. No focal consolidation. 2. Stable support lines and tubes. [facility], , 03/04/2025 6:33 AM
[2025-03-04] MEDS: MAGNESIUM SULFATE-D5W PMX 1 GM in DEXTROSE/WATER 1 100ML.BAG IVPB ONE (10:44)
--- NOTE | 2025-03-04 11:50 | P.PN ---
Subjective Progress Note Date: 03/04/25 Seen today on 03/02/2025, patient remains in the ICU intubated mechanically ventilated on assist-control rate of 20 tidal volume 400 FiO2 40% PEEP of 5 ABG showed a pO2 of 128 pCO2 43 pH of 7.47 has FiO2 was cut down to 35%. Last night the patient had a Tmax of 102, remains on antibiotics as per infectious disease including vancomycin and cefepime. Patient is on propofol at 35 mg/kg/min she is requiring norepinephrine at 0.07 mcg/kg/min. Patient was initially intubated on 02/22 extubated on 02/26 reintubated on 02/27. Her mental status remains marginal at best, patient follows simple instructions but she does not seem to open her eyes, and she does not maintain any eye contact. WBC count today is 8.4 hemoglobin 7.3 platelets are normal ABG as noted earlier electrolytes are normal except for low potassium of 3.2, renal profile is normal chest x-ray showed minimal multifocal airspace opacities with left lower lobe atelectasis and possibly a small tiny left pleural effusion. Patient was seen today on 03/03/2025, remains in the ICU, intubated and mechanically ventilated, on assist-control rate of 20 tidal volume 400 FiO2 35% PEEP of 5 ABG showed a pO2 of 107 pCO2 39 pH of 7.49. Propofol is presently on hold patient is on IV fluid 0.9 at 50 cc/h she is also receiving vital HP at 15 mL/h. Her sputum has been positive for MSSA her urine is positive for E. coli. Her antibiotics are being addressed by infectious disease on the case. WBC count is 8.1 hemoglobin 7.2 platelets are 302 basic metabolic profile is normal, renal profile is normal. Blood sugar is 134. Considering the patient is awake and at least she is opening her eyes although she does not maintain a good eye contact, this is the best she has been neurologically, and I will go ahead and give the patient another trial of weaning utilizing pressure support of 12 and CPAP. And will decide whether to taper down her pressure support or to proceed to weaning and extubation sometime later today. If not we will try the same thing again tomorrow. Chest x-ray today showed minimal multifocal airspace opacities. The patient is seen today March 04, 2025 in follow-up in the intensive care unit. She remains intubated on the mechanical ventilator currently on assist-control mode at a rate of 20, tidal volume 400, FiO2 35% and a PEEP of 5. Morning blood gases reveal a PO2 of 111, pCO2 41 and pH of 7.46. She remains off sedation. She is more awake and alert. Following simple commands. She has D5W at 50 mL/h. She is being nourished with vital HP at 58 mL/h which is her goal. Normal saline at keep vein open. White count 8.6. Hemoglobin 7.3. Platelets 298. Sodium 136. Potassium 3.8. Bicarb 28. BUN 17. Creatinine 0.55. Glucose 135. Follow-up sputum culture revealed no growth. Blood cultures revealed no growth. She remains on cefepime and vancomycin. Anticoagulated with Eliquis. Chest x-ray reveals no focal consolidation. Objective - Vital Signs Vital signs: Vital Signs Temp 98.9 F 03/04/25 04:00 Pulse 110 H 03/04/25 07:00 Resp 20 03/04/25 07:00 BP 106/58 03/04/25 07:00 Pulse Ox 97 03/04/25 10:53 FiO2 35 03/04/25 09:19 Intake & Output 03/03/25 03/04/25 03/04/25 18:59 06:59 18:59 Intake Total 2657 1447 111 Output Total 2115 1290 100 Balance 542 157 11 Weight 58.2 kg 58.2 kg Intake: IV 683 661 53 Arterial Line 33 36 3 Cefepime 2 gm In Sodium 100 25 Chloride 0.9% 100 ml @ 25 mls/hr IVPB Q8H [facility] Rx#: [id number] Dextrose 5% in Water 1, 550 550 50 000 ml @ 50 mls/hr IV . Q20H [facility] Rx#:[id number] Magnesium Sulfate-D5w Pmx 50 1 gm In Dextrose/Water 1 100ml.bag @ 100 mls/hr IVPB ONCE ONE Rx#: [id number] Intake, IV Titration 1188 Amount Anidulafungin 100 mg In 588 Sodium Chloride 0.9% 100 ml @ 84 mls/hr IVPB DAILY [facility] Rx#:[id number] Magnesium Sulfate-D5w Pmx 100 1 gm In Dextrose/Water 1 100ml.bag @ 100 mls/hr IVPB ONCE ONE Rx#: [id number] Vancomycin 1,000 mg In 250 Sodium Chloride 0.9% 250 ml @ 125 mls/hr IVPB Q8H [facility] Rx#:[id number] Vancomycin 1,250 mg In 250 Sodium Chloride 0.9% 250 ml @ 125 mls/hr IVPB Q12HR@0600,1800 [facility] Rx#: [id number] Tube Feeding 696 696 58 Other 90 90 Output: Urine 2115 1290 100 Other: Voiding Method Indwelling Catheter Indwelling Catheter ABP, PAP, CO, CI - Last Documented Arterial Blood Pressure 99/49 - Exam GENERAL EXAM: Alert, thin, intubated this 54-year-old female, comfortable in no apparent distress. HEAD: Normocephalic. EYES: Normal reaction of pupils, equal size. NOSE: Clear with pink turbinates. THROAT: No erythema or exudates. Oral endotracheal and gastric tube secured in place. NECK: No masses, no JVD. CHEST: No chest wall deformity. LUNGS: Equal air entry with no crackles, wheeze, rhonchi or dullness. CVS: S1 and S2 normal with no audible murmur, regular rhythm. ABDOMEN: No hepatosplenomegaly, normal bowel sounds, no guarding or rigidity. SPINE: No scoliosis or deformity SKIN: No rashes CENTRAL NERVOUS SYSTEM: Intubated, tone is normal in all 4 extremities. EXTREMITIES: There is no peripheral edema. No clubbing, no cyanosis. Peripheral pulses are intact. - Labs CBC & Chem 7: 03/04/25 05:20 03/04/25 05:20 Labs: Abnormal Lab Results - Last 24 Hours (Table) 03/03/25 03/03/25 03/03/25 Range/Units 11:44 17:46 23:12 RBC (4.10-5.20) 10*6/uL Hgb (12.0-15.0) g/dL Hct (37.2-46.3) % MCH (27.0-32.0) pg MCHC (32.0-37.0) g/dL Immature Gran # (0.00-0.04) 10*3/uL Lymphocytes # (0.90-5.00) 10*3/uL Eosinophils # (0.04-0.35) 10*3/uL ABG pH (7.35-7.45) ABG pO2 (83-108) mmHg ABG HCO3 (21-25) mmol/L ABG Total CO2 (19-24) mmol/L ABG O2 Saturation (94-97) % Hemoglobin (11.4-16.0) gm/dL Sodium (137-145) mmol/L Glucose (74-99) mg/dL POC Glucose (mg/dL) 134 H 134 H 118 H (70-110) mg/dL Calcium (8.4-10.2) mg/dL 03/04/25 03/04/25 03/04/25 Range/Units 05:10 05:16 05:20 RBC (4.10-5.20) 10*6/uL Hgb (12.0-15.0) g/dL Hct (37.2-46.3) % MCH (27.0-32.0) pg MCHC (32.0-37.0) g/dL Immature Gran # (0.00-0.04) 10*3/uL Lymphocytes # (0.90-5.00) 10*3/uL Eosinophils # (0.04-0.35) 10*3/uL ABG pH 7.46 H (7.35-7.45) ABG pO2 111 H (83-108) mmHg ABG HCO3 29 H (21-25) mmol/L ABG Total CO2 30 H (19-24) mmol/L ABG O2 Saturation 98.7 H (94-97) % Hemoglobin 7.7 L (11.4-16.0) gm/dL Sodium 136 L (137-145) mmol/L Glucose 135 H (74-99) mg/dL POC Glucose (mg/dL) 135 H (70-110) mg/dL Calcium 8.0 L (8.4-10.2) mg/dL 03/04/25 Range/Units 05:20 RBC 2.73 L (4.10-5.20) 10*6/uL Hgb 7.3 L (12.0-15.0) g/dL Hct 24.4 L (37.2-46.3) % MCH 26.7 L (27.0-32.0) pg MCHC 29.9 L (32.0-37.0) g/dL Immature Gran # 0.12 H (0.00-0.04) 10*3/uL Lymphocytes # 0.68 L (0.90-5.00) 10*3/uL Eosinophils # 0.83 H (0.04-0.35) 10*3/uL ABG pH (7.35-7.45) ABG pO2 (83-108) mmHg ABG HCO3 (21-25) mmol/L ABG Total CO2 (19-24) mmol/L ABG O2 Saturation (94-97) % Hemoglobin (11.4-16.0) gm/dL Sodium (137-145) mmol/L Glucose (74-99) mg/dL POC Glucose (mg/dL) (70-110) mg/dL Calcium (8.4-10.2) mg/dL Microbiology - Last 24 Hours (Table) 03/02/25 16:51 Gram Stain - Preliminary Sputum Sputum Culture - Preliminary 03/02/25 13:20 Blood Culture - Preliminary Blood Assessment and Plan Assessment: Acute hypoxic respiratory failure secondary to acute pulmonary edema Acute systolic congestive heart failure ejection fraction of 25 to 30% Left lung opacification noted on 02/27/2025, requiring bronchoscopy and extraction of mucous plug noted in the left upper lobe., Resolved Failed extubation, patient lasted almost 24 hours off mechanical ventilation. Had to be reintubated on 02/27/2025. Multifocal opacities noted on previous chest x-ray, suggestive of MSSA pneumonia with positive sputum cultures for MSSA. Follow-up cultures showed no growth. 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 Hypotension secondary to severe sepsis History of underlying coronary artery disease History of pulmonary embolism History of bilateral internal carotid artery stenosis History of CVA with persistent hemiplegia Paroxysmal atrial fibrillation History of pulmonary embolism, on Eliquis History of pacemaker implantation Hypothyroidism History of psoriasis Plan: The patient was seen and evaluated Chest x-ray, labs and medications reviewed Microbiology reviewed Currently off sedation and following commands Will give a a weaning trial of pressure support of 5 and CPAP Depending on how she does we will plan to extubate today if possible Remains on Eraxis, vancomycin and cefepime per ID service Anticoagulated with Eliquis Remains on amiodarone and beta-blockers Remains on her home medication We will continue to follow and make further recommendations based on her clinical status I have personally seen and examined the patient, performed the documentation and the assessment and plan as written. Number of minutes spent on the visit: 15 Dictation was produced using [employer] dictation software. Please excuse any grammatical, word or spelling errors.
[2025-03-04 12:39] LABS: Glucose,Whole Blood 143 mg/dL (70-110)
--- NOTE | 2025-03-04 13:00 | P.PN ---
Subjective Progress Note Date: 03/04/25 The patient was seen this morning. She continues to be intubated on mechanical ventilation she continues to be hemodynamically stable requiring norepinephrine but she is requiring less norepinephrine compared to before. Urine output continues to be marginal. She is on Lasix IV at 40 mg twice daily. She is not on any cardiomyopathy medications because of the hemodynamical instability and requiring norepinephrine. The echo showed an EF between 25 to 30%. The physical examination is remarkable for intubated patient on mechanical ventilation with diminished breathing sounds bilaterally and regular rate and rhythm. February 26, 2025 The patient was seen and evaluated this morning. She continues to be intubated. She is still on Lasix IV. The pressure still low requiring norepinephrine but we are coming down with a dose. The chest x-ray was reviewed this morning and seems to be overall better in terms of fluid overload. We potentially can come down with a dose of IV Lasix and possible wean the patient off from norepinephrine. The physical examination is remarkable for regular rhythm with diminished breathing sounds bilaterally and mild bilateral lower extremity edema and skin changes noted. She is on oral anticoagulation. February 27, 2025 The patient was seen and evaluated this morning. She was extubated yesterday and then she reintubated again because she developed hypoxic respiratory failure. The chest x-ray showed complete opacification of the left lung. She is in process of having possible bronchoscopy. Hemodynamically she remains unstable requiring small dose of norepinephrine. The physical examination is remarkable for regular rate and rhythm with a systolic murmur at the right and left upper sternal border and wheezing was noted also. February 28, 2025 The patient was seen and evaluated this morning. She underwent bronchoscopy yesterday. The chest x-ray today appears to be better. The complete opacification of the left lung has resolved completely. Currently she is intubated on mechanical ventilation. She is off norepinephrine at this point and hemodynamically stable and maintaining normal sinus mechanism. Physical examination is remarkable for regular rhythm with a systolic murmur at the right upper sternal border and clear breathing sounds bilaterally and no edema was noted in the lower extremities with extensive skin rash. March 01, 2025 Intubed and sedated. She is back on levophed. + fever, cxr ok March 02, 2025 Pt seen in ICU. She remains intubated, off sedation she does follow commands per nursing. She is still on levophed. March 03, 2025 Patient seen in ICU. Remains intubated, off sedation, following simple commands. Hemoglobin 7.2, creatinine 0.44. She had run of VT 120 beats overnight. Off levophed since overnight. 03/04/2025 Seen in ICU. Will get sedation vacation today and breathing trial. No further episodes of sustained or nonsustained VT noticed over last 24 hours. Assessment Acute hypoxic respiratory failure Severe cardiomyopathy Heart failure with reduced ejection fraction Paroxysmal atrial fibrillation Sinus rhythm at this point Multiple comorbid conditions including anemia Plan: Continue Lopressor 12.5 twice daily. Once after extubation if blood pressure stable, consider increasing to 25 twice daily. Continue oral anticoagulation and amiodarone Monitor the kidney function and electrolytes and hemoglobin Further recommendations pending clinic course Objective - Vital Signs Vital signs: Vital Signs Temp 98.9 F 03/04/25 04:00 Pulse 110 H 03/04/25 07:00 Resp 20 03/04/25 07:00 BP 106/58 03/04/25 07:00 Pulse Ox 94 L 03/04/25 12:40 FiO2 35 03/04/25 09:19 Intake & Output 03/03/25 03/04/25 03/04/25 18:59 06:59 18:59 Intake Total 2657 1447 111 Output Total 2115 1290 100 Balance 542 157 11 Weight 58.2 kg 58.2 kg Intake: IV 683 661 53 Arterial Line 33 36 3 Cefepime 2 gm In Sodium 100 25 Chloride 0.9% 100 ml @ 25 mls/hr IVPB Q8H [facility] Rx#: [id number] Dextrose 5% in Water 1, 550 550 50 000 ml @ 50 mls/hr IV . Q20H [facility] Rx#:[id number] Magnesium Sulfate-D5w Pmx 50 1 gm In Dextrose/Water 1 100ml.bag @ 100 mls/hr IVPB ONCE [facility] Rx#: [id number] Intake, IV Titration 1188 Amount Anidulafungin 100 mg In 588 Sodium Chloride 0.9% 100 ml @ 84 mls/hr IVPB DAILY [facility] Rx#:[id number] Magnesium Sulfate-D5w Pmx 100 1 gm In Dextrose/Water 1 100ml.bag @ 100 mls/hr IVPB ONCE [facility] Rx#: [id number] Vancomycin 1,000 mg In 250 Sodium Chloride 0.9% 250 ml @ 125 mls/hr IVPB Q8H [facility] Rx#:[id number] Vancomycin 1,250 mg In 250 Sodium Chloride 0.9% 250 ml @ 125 mls/hr IVPB Q12HR@0600,1800 [facility] Rx#: [id number] Tube Feeding 696 696 58 Other 90 90 Output: Urine 2115 1290 100 Other: Voiding Method Indwelling Catheter Indwelling Catheter ABP, PAP, CO, CI - Last Documented Arterial Blood Pressure 99/49 - Labs CBC & Chem 7: 03/04/25 05:20 03/04/25 05:20 Labs: Abnormal Lab Results - Last 24 Hours (Table) 03/03/25 03/03/25 03/04/25 Range/Units 17:46 23:12 05:10 RBC (4.10-5.20) 10*6/uL Hgb (12.0-15.0) g/dL Hct (37.2-46.3) % MCH (27.0-32.0) pg MCHC (32.0-37.0) g/dL Immature Gran # (0.00-0.04) 10*3/uL Lymphocytes # (0.90-5.00) 10*3/uL Eosinophils # (0.04-0.35) 10*3/uL ABG pH 7.46 H (7.35-7.45) ABG pO2 111 H (83-108) mmHg ABG HCO3 29 H (21-25) mmol/L ABG Total CO2 30 H (19-24) mmol/L ABG O2 Saturation 98.7 H (94-97) % Hemoglobin 7.7 L (11.4-16.0) gm/dL Sodium (137-145) mmol/L Glucose (74-99) mg/dL POC Glucose (mg/dL) 134 H 118 H (70-110) mg/dL Calcium (8.4-10.2) mg/dL 03/04/25 03/04/25 03/04/25 Range/Units 05:16 05:20 05:20 RBC 2.73 L (4.10-5.20) 10*6/uL Hgb 7.3 L (12.0-15.0) g/dL Hct 24.4 L (37.2-46.3) % MCH 26.7 L (27.0-32.0) pg MCHC 29.9 L (32.0-37.0) g/dL Immature Gran # 0.12 H (0.00-0.04) 10*3/uL Lymphocytes # 0.68 L (0.90-5.00) 10*3/uL Eosinophils # 0.83 H (0.04-0.35) 10*3/uL ABG pH (7.35-7.45) ABG pO2 (83-108) mmHg ABG HCO3 (21-25) mmol/L ABG Total CO2 (19-24) mmol/L ABG O2 Saturation (94-97) % Hemoglobin (11.4-16.0) gm/dL Sodium 136 L (137-145) mmol/L Glucose 135 H (74-99) mg/dL POC Glucose (mg/dL) 135 H (70-110) mg/dL Calcium 8.0 L (8.4-10.2) mg/dL 03/04/25 Range/Units 12:38 RBC (4.10-5.20) 10*6/uL Hgb (12.0-15.0) g/dL Hct (37.2-46.3) % MCH (27.0-32.0) pg MCHC (32.0-37.0) g/dL Immature Gran # (0.00-0.04) 10*3/uL Lymphocytes # (0.90-5.00) 10*3/uL Eosinophils # (0.04-0.35) 10*3/uL ABG pH (7.35-7.45) ABG pO2 (83-108) mmHg ABG HCO3 (21-25) mmol/L ABG Total CO2 (19-24) mmol/L ABG O2 Saturation (94-97) % Hemoglobin (11.4-16.0) gm/dL Sodium (137-145) mmol/L Glucose (74-99) mg/dL POC Glucose (mg/dL) 143 H (70-110) mg/dL Calcium (8.4-10.2) mg/dL Microbiology - Last 24 Hours (Table) 03/02/25 16:51 Gram Stain - Preliminary Sputum Sputum Culture - Preliminary 03/02/25 13:20 Blood Culture - Preliminary Blood
--- NOTE | 2025-03-04 13:20 | P.PN ---
Subjective This is a pleasant 54 years old female who was recently diagnosed with bullous pemphigoid 3 months ago when she is sent from this facility to [facility], she had a biopsy followed by treatment with doxycycline and taper prednisone over 3 weeks. Also she has extensive long history of CHF and seizure disorder. She was previously in the ICU for severe sepsis. Now presents because of generalized weakness. Patient states she went and fell today while she was trying to get up to go to the restroom she found a green chair on her way she was too weak to move with so she fell on her buttocks she could not get up as usual so she called the family who helped her and called EMS. Patient stayed on the floor for about 25 minutes as she explains. Denies any abdominal pain vomiting or diarrhea Denies dysuria urgency but states she has not been since yesterday and she has been drinking a lot of water for this reason Denies chest pain or dyspnea or coughing. No headache dizziness She is a known case of previous stroke and severe left hemiparesis, patient states it is worse than before this time. Also there was some concern from some slurred speech but no double vision. Patient complains from feeling swollen in her legs She has extensive bullous disease, majority of them are ruptured throughout her trunk and extremities and there is surrounding with erythema more extensive edema in the lower extremities bilaterally. However there is no purulent discharge. No significant tenderness in this erythematous area Her cardiac rn Dr. Noriega neurologist is Dr. quiroz Patient with no fever blood pressure slightly on the low side but patient is symptomatic Blood pressure is fluctuation slightly on the low side Hemoglobin 10 WBC normal 8.6. Rest of labs unremarkable including electrolytes proBNP 1740 CT of the head and neck showing moderate stenosis of bilateral internal carotid arteries CT of the brain showing remote right large MCA territory infarct with encephalomalacia and remote left frontal infarct with encephalomalacia and bilateral cerebellar encephalomalacia Chest x-ray showing mild interstitial prominence may be bronchitis rule out mild pulmonary vascular congestion 02/21 Patient awake alert She looks hypovolemic with positive orthostatic vitals, yesterday we will give her a bolus of 500 cc. Albumin dropped from 2.7 down to 2.0. Patient has slightly worse leg swelling. She has multiple friable and ruptured bullae on the trunk and extremities with mild erythema surrounding these bullae especially in the lower extremities. These are chronic for the last 3 months diagnosed with bullous pemphigoid. Patient states that she took the steroids and that did not help much. She denies chest pain or dyspnea. No abdominal pain or vomiting. Patient currently not on antibiotics per ID team recommendation to keep monitoring while off antibiotics. No fever. Patient was on doxycycline for her bullous lesions at [facility] not sure if she needed for now, keep holding doxycycline. Cardiology is going to evaluate the patient. Neurology service also on the case however patient has chronic hemiplegia, and this morning she is not sure if it is left hemiplegia is at baseline or worse, however is severe and does not make much difference. No slurred speech no blurry vision. 02/22 Patient is looks tired lethargic Kirlin in bed and was shivering in the morning and developing fever also she is tachycardic and blood pressure is soft No chest pain or abdominal pain Still has erythema and swelling of both lower extremities suspected secondary to cellulitis, MRSA suspected and currently she is on IV vancomycin with infectious disease team recommendation She has good urine output and creatinine within the reference range. We give her a bolus of albumin given her hypoalbuminemia also if blood pressure remains low may consider a bolus of normal saline later on Midodrine was prescribed on admission as needed for hypotension but was not given by staff despite low blood pressure therefore we are going to switch it to standing dose Monitor labs and electrolytes and vitals closely 02/23 Patient yesterday was found unresponsive on the floor and there was foam in her mouth A team was called Patient got intubated and placed on mechanical ventilation transferred to the ICU. Patient currently intubated and sedated. Yesterday patient was hypotensive and tachycardic and altered mental status. This morning required Levophed 02/23 Patient remains in the ICU intubated and sedated, PEEP is 5 improved Female family member at bedside. Patient earlier was able to work She opened eyes and tried to communicate and she could recognize the family member, she was anxious as per family Patient required small dose of pressors earlier Continue on same antibiotics as per infectious disease team Off IV fluid Echocardiogram showed ejection fraction of 25 to 30% Increased left ventricular mass with very severe LV dysfunction Sputum culture growing Staph aureus pansensitive he Patient's rash of the lower extremity is significantly improved Discussed the case with pulmonary team 03/04 Resume the care of the patient today Patient remains in the ICU, she remains intubated on mechanical ventilation, currently this morning she is off sedation, she opens eyes spontaneously and to verbal commands she follows commands. She is not getting any pressors, currently getting D5W at 50 mL/h Also patient on broad-spectrum antibiotics of Eraxis, cefepime and IV vancomycin Repeat chest x-ray this morning showing significant improvement in her bilateral consolidation and pulmonary edema since To the ICU Pulmonary team are trying to continue with of sedation for possible extubation today Active Medications Generic Name Dose Route Start Last Admin Trade Name Freq PRN Reason Stop Dose Admin Acetaminophen 325 mg 02/21/25 01:15 03/02/25 07:42 Acetaminophen Tab 325 Mg Tab PO 325 mg Q6HR PRN Administration Fever and/ or Pain 1-3 Amiodarone HCl 200 mg 02/21/25 09:00 03/03/25 08:20 Amiodarone 200 Mg Tab PO 200 mg DAILY ADDIE Administration Apixaban 5 mg 02/21/25 09:00 03/03/25 20:36 Apixaban 5 Mg Tab PO 5 mg BID ADDIE Administration Protocol Atorvastatin Calcium 80 mg 02/21/25 09:00 03/03/25 08:20 Atorvastatin 80 Mg Tab PO 80 mg DAILY ADDIE Administration Bisacodyl 10 mg 03/01/25 17:26 03/01/25 17:47 Bisacodyl 10 Mg Supp RECTAL 10 mg DAILY PRN Administration Constipation Carbamazepine 200 mg 02/21/25 09:00 03/04/25 10:59 Carbamazepine 200 Mg Tab PO Not Given TID ADDIE Famotidine 20 mg 02/21/25 09:00 03/04/25 10:58 Famotidine 20 Mg/2 Ml Vial IV 20 mg Q12HR ADDIE Administration Gabapentin 600 mg 02/21/25 16:00 03/04/25 11:00 Gabapentin 300 Mg Cap PO Not Given TID ADDIE Hydromorphone HCl 1 mg 02/26/25 17:27 03/04/25 03:13 Hydromorphone 1 Mg/Ml 1 Ml Syringe IVP 1 mg Q3HR PRN Administration Pain 4-10 Cefepime HCl 2 gm/ Sodium 100 mls @ 25 mls/hr 02/23/25 10:00 03/04/25 10:58 Chloride IVPB 25 mls/hr Q8H ADDIE Administration Anidulafungin 100 mg/ Sodium 100 mls @ 84 mls/hr 03/03/25 09:00 03/03/25 09:59 Chloride IVPB 84 mls/hr DAILY ADDIE Administration Protocol Vancomycin HCl 1,000 mg/ 250 mls @ 125 mls/hr 03/03/25 16:00 03/04/25 10:44 Sodium Chloride IVPB 125 mls/hr Q8H ADDIE Administration Lacosamide 50 mg 02/28/25 21:00 03/04/25 10:57 Lacosamide Iv (Ages 17+ Yrs) 200 Mg/20 Ml Ml IVP 50 mg BID ADDIE Administration Levetiracetam 1,500 mg 02/23/25 10:30 03/04/25 10:57 Levetiracetam Iv 500 Mg/5 Ml Vial IV 1,500 mg BID ADDIE Administration Lorazepam 2 mg 02/28/25 16:44 Lorazepam 1 Mg/0.5 Ml Vial IV ONCE PRN Seizures Metoprolol Tartrate 12.5 mg 03/03/25 12:45 03/03/25 20:37 Metoprolol Tartrate 12.5 Mg Tab PO 12.5 mg BID ADDIE Administration Miscellaneous Information 1 each 02/23/25 05:53 Magnesium Replacement Protocol 1 Each Misc MISCELLANE DAILY PRN Per Protocol Protocol Miscellaneous Information 1 each 02/23/25 16:15 Potassium Replacement Protocol 1 Each Misc MISCELLANE DAILY PRN Per Protocol Protocol Miscellaneous Information 1 each 03/04/25 15:00 Vancomycin Trough Due 1 Each Misc MISCELLANE 03/04/25 15:01 ONCE ONE Naloxone HCl 0.2 mg 02/20/25 15:25 Naloxone 0.4 Mg/Ml 1 Ml Vial IV Q2M PRN Opioid Reversal Nystatin 500,000 unit 02/21/25 18:00 03/04/25 10:59 Nystatin 100,000 Unit/Ml Susp 500,000 Unit/5 Ml Cup PO Not Given QID ADDIE Protocol Petrolatum 1 applic 02/22/25 09:58 Zinc Oxide Paste (Z-Guard) 1 Applic TOPICAL DAILY PRN Wound Healing Protocol Prednisone 10 mg 02/21/25 10:15 03/03/25 08:21 Prednisone 10 Mg Tab PO 10 mg DAILY ADDIE Administration Quetiapine Fumarate 25 mg 02/21/25 09:00 03/04/25 10:59 Quetiapine 25 Mg Tab PO Not Given BID ADDIE Senna/Docusate Sodium 1 each 03/01/25 21:00 03/04/25 10:59 Sennosides-Docusate Sodium 1 Each Tab PO Not Given BID [facility] Objective - Vital Signs Vital signs: Vital Signs Temp 98.9 F 03/04/25 04:00 Pulse 110 H 03/04/25 07:00 Resp 20 03/04/25 07:00 BP 106/58 03/04/25 07:00 Pulse Ox 98 03/04/25 07:00 FiO2 35 03/04/25 09:19 Intake & Output 03/03/25 03/04/25 03/04/25 18:59 06:59 18:59 Intake Total 2657 1447 111 Output Total 2115 1290 100 Balance 542 157 11 Weight 58.2 kg Intake: IV 683 661 53 Arterial Line 33 36 3 Cefepime 2 gm In Sodium 100 25 Chloride 0.9% 100 ml @ 25 mls/hr IVPB Q8H [facility] Rx#: [id number] Dextrose 5% in Water 1, 550 550 50 000 ml @ 50 mls/hr IV . Q20H [facility] Rx#:[id number] Magnesium Sulfate-D5w Pmx 50 1 gm In Dextrose/Water 1 100ml.bag @ 100 mls/hr IVPB ONCE ONE Rx#: [id number] Intake, IV Titration 1188 Amount Anidulafungin 100 mg In 588 Sodium Chloride 0.9% 100 ml @ 84 mls/hr IVPB DAILY [facility] Rx#:[id number] Magnesium Sulfate-D5w Pmx 100 1 gm In Dextrose/Water 1 100ml.bag @ 100 mls/hr IVPB ONCE ONE Rx#: [id number] Vancomycin 1,000 mg In 250 Sodium Chloride 0.9% 250 ml @ 125 mls/hr IVPB Q8H [facility] Rx#:[id number] Vancomycin 1,250 mg In 250 Sodium Chloride 0.9% 250 ml @ 125 mls/hr IVPB Q12HR@0600,1800 [facility] Rx#: [id number] Tube Feeding 696 696 58 Other 90 90 Output: Urine 2115 1290 100 Other: Voiding Method Indwelling Catheter Indwelling Catheter ABP, PAP, CO, CI - Last Documented Arterial Blood Pressure 99/49 - Exam - GENERAL: The patient is intubated, she is awake, follow commands HEENT: Pupils are round and equally reacting to light. EOMI. No scleral icterus. No conjunctival pallor. Normocephalic, atraumatic. No pharyngeal erythema. No thyromegaly. CARDIOVASCULAR: S1 and S2 present. No murmurs, rubs, or gallops. PULMONARY: Chest is clear to auscultation, no wheezing , no crackles. ABDOMEN: Soft, nontender, nondistended, normoactive bowel sounds. No palpable organomegaly. MUSCULOSKELETAL: No joint swelling or deformity. EXTREMITIES: No cyanosis, clubbing, or pedal edema. -Multiple eroded bullae and friable bullae with surrounding erythema throughout trunk and extremities ( bullous pemphigoid ), significantly improved -NEUROLOGICAL: Gross neurological examination did not reveal any focal deficits. sever left hemiparesis (old per pt) SKIN: No rashes. no petechiae. - Labs CBC & Chem 7: 03/04/25 05:20 03/04/25 05:20 Labs: Abnormal Lab Results - Last 24 Hours (Table) 03/03/25 03/03/25 03/03/25 Range/Units 11:44 17:46 23:12 RBC (4.10-5.20) 10*6/uL Hgb (12.0-15.0) g/dL Hct (37.2-46.3) % MCH (27.0-32.0) pg MCHC (32.0-37.0) g/dL Immature Gran # (0.00-0.04) 10*3/uL Lymphocytes # (0.90-5.00) 10*3/uL Eosinophils # (0.04-0.35) 10*3/uL ABG pH (7.35-7.45) ABG pO2 (83-108) mmHg ABG HCO3 (21-25) mmol/L ABG Total CO2 (19-24) mmol/L ABG O2 Saturation (94-97) % Hemoglobin (11.4-16.0) gm/dL Sodium (137-145) mmol/L Glucose (74-99) mg/dL POC Glucose (mg/dL) 134 H 134 H 118 H (70-110) mg/dL Calcium (8.4-10.2) mg/dL 03/04/25 03/04/25 03/04/25 Range/Units 05:10 05:16 05:20 RBC (4.10-5.20) 10*6/uL Hgb (12.0-15.0) g/dL Hct (37.2-46.3) % MCH (27.0-32.0) pg MCHC (32.0-37.0) g/dL Immature Gran # (0.00-0.04) 10*3/uL Lymphocytes # (0.90-5.00) 10*3/uL Eosinophils # (0.04-0.35) 10*3/uL ABG pH 7.46 H (7.35-7.45) ABG pO2 111 H (83-108) mmHg ABG HCO3 29 H (21-25) mmol/L ABG Total CO2 30 H (19-24) mmol/L ABG O2 Saturation 98.7 H (94-97) % Hemoglobin 7.7 L (11.4-16.0) gm/dL Sodium 136 L (137-145) mmol/L Glucose 135 H (74-99) mg/dL POC Glucose (mg/dL) 135 H (70-110) mg/dL Calcium 8.0 L (8.4-10.2) mg/dL 03/04/25 Range/Units 05:20 RBC 2.73 L (4.10-5.20) 10*6/uL Hgb 7.3 L (12.0-15.0) g/dL Hct 24.4 L (37.2-46.3) % MCH 26.7 L (27.0-32.0) pg MCHC 29.9 L (32.0-37.0) g/dL Immature Gran # 0.12 H (0.00-0.04) 10*3/uL Lymphocytes # 0.68 L (0.90-5.00) 10*3/uL Eosinophils # 0.83 H (0.04-0.35) 10*3/uL ABG pH (7.35-7.45) ABG pO2 (83-108) mmHg ABG HCO3 (21-25) mmol/L ABG Total CO2 (19-24) mmol/L ABG O2 Saturation (94-97) % Hemoglobin (11.4-16.0) gm/dL Sodium (137-145) mmol/L Glucose (74-99) mg/dL POC Glucose (mg/dL) (70-110) mg/dL Calcium (8.4-10.2) mg/dL Microbiology - Last 24 Hours (Table) 03/02/25 13:20 Blood Culture - Preliminary Blood 03/02/25 16:51 Gram Stain - Preliminary Sputum Assessment and Plan Assessment: seizure disorder Severe sepsis seizure disorder Bilateral lower extremity cellulitis thought secondary to MRSA Hypotension secondary to above, improved Worsening weakness on the left side associated with fall without syncope and transient slurred speech and some swallowing difficulty, rule out new stroke or worsening stroke Bullous pemphigoid with multiple eroded and friable bullae throughout the trunk and extremities with surrounding erythema on doxycycline and prednisone previously Cardiomyopathy with ejection fraction 35% Coronary artery disease History of PE History of stroke with persistent hemiplegia Moderate bilateral internal carotid artery stenosis Seizure disorder with history of breakthrough seizure Generalized weakness Plan: Continue with mechanical ventilation, currently off sedation and pulmonary team trying extubation Pulmonary/critical care team consult Continue with IV vancomycin and f IV cefepime and Eraxis per ID team Patient follow-up with program coordinator executive education as an outpatient for her bullous lesions Cardiology team consulted for her severe cardiomyopathy Wound team consult Neurology team consult, continue with current seizure medication neurologist, currently on Tegretol 200 mg gabapentin 600 mg Vimpat 50 mg and Keppra 1500 mg Labs and medication were reviewed.. Continue same treatment. Continue with symptomatic treatment. Resume home medication. Monitor labs and vitals. DVT and GI prophylaxis. Further recommendations as per clinical course of the patient DVT prophylaxis: Eliquis GI Prophylaxis: Pepcid PT/OT: Pending Prognosis is guarded
[2025-03-04] MEDS: POTASSIUM BICARBONATE/CIT AC 20 MEQ TABLET.EFF NG-TUBE SCH (14:56)
[2025-03-04] MEDS: VANCOMYCIN TROUGH DUE 1 EACH MISC MISCELLANE ONE (14:59)
--- NOTE | 2025-03-04 15:26 | P.PN ---
Subjective Progress Note Date: 03/04/25 03/04/2025: Patient was seen for a follow-up. Patient is extubated. She is fully alert and awake. Patient's daughter was also present by the bedside and patient's nurse was also present. Patient's rash is much improved. It was felt the rash was likely related to Lasix. Patient tells me that she has 2 daughters. One of them resembles her. 02/23/2025: Patient was seen for follow-up. She is now in the ICU. Patient apparently had episode of unresponsive in the morning. Patient was unresponsive to sternal rub with agonal breathing. Heart rate was 120, blood pressure 120/78, saturation 57%. Patient was intubated at 3:32 AM and transferred to ICU. Patient's chest x-ray showed multifocal airspace opacities. Pulmonary and critical care suspecting acute hypoxic respiratory failure, likely secondary to acute pulmonary edema. Patient has developed dense and diffuse bilateral pulmonary consolidation and the patient was severely hypoxic, failed BiPAP therapy and patient was intubated. Pneumonia is felt doubtful. Patient does have CHF with cardiomyopathy with LV dysfunction with EF of 30 to 35%. Patient has paroxysmal atrial fibrillation, anticoagulated with Eliquis. Objective - Vital Signs Vital signs: Vital Signs Temp 98.9 F 03/04/25 04:00 Pulse 110 H 03/04/25 07:00 Resp 20 03/04/25 07:00 BP 106/58 03/04/25 07:00 Pulse Ox 94 L 03/04/25 12:40 FiO2 35 03/04/25 09:19 Intake & Output 03/03/25 03/04/25 03/04/25 18:59 06:59 18:59 Intake Total 2657 1447 111 Output Total 2115 1290 100 Balance 542 157 11 Weight 58.2 kg 58.2 kg Intake: IV 683 661 53 Arterial Line 33 36 3 Cefepime 2 gm In Sodium 100 25 Chloride 0.9% 100 ml @ 25 mls/hr IVPB Q8H [facility] Rx#: [id number] Dextrose 5% in Water 1, 550 550 50 000 ml @ 50 mls/hr IV . Q20H [facility] Rx#:[id number] Magnesium Sulfate-D5w Pmx 50 1 gm In Dextrose/Water 1 100ml.bag @ 100 mls/hr IVPB ONCE [facility] Rx#: [id number] Intake, IV Titration 1188 Amount Anidulafungin 100 mg In 588 Sodium Chloride 0.9% 100 ml @ 84 mls/hr IVPB DAILY [facility] Rx#:[id number] Magnesium Sulfate-D5w Pmx 100 1 gm In Dextrose/Water 1 100ml.bag @ 100 mls/hr IVPB ONCE [facility] Rx#: [id number] Vancomycin 1,000 mg In 250 Sodium Chloride 0.9% 250 ml @ 125 mls/hr IVPB Q8H [facility] Rx#:[id number] Vancomycin 1,250 mg In 250 Sodium Chloride 0.9% 250 ml @ 125 mls/hr IVPB Q12HR@0600,1800 [facility] Rx#: [id number] Tube Feeding 696 696 58 Other 90 90 Output: Urine 2115 1290 100 Other: Voiding Method Indwelling Catheter Indwelling Catheter ABP, PAP, CO, CI - Last Documented Arterial Blood Pressure 99/49 - Exam Patient is alert and awake. She knows it is 2024 but thinks it is January. Speech is slightly hoarse. Patient is fully awake. Patient continues to have left hand weakness from previous stroke. Her left foot is also weak with ankle dorsiflexion 4. Rash is much improved. - Labs CBC & Chem 7: 03/04/25 05:20 03/04/25 05:20 Labs: Abnormal Lab Results - Last 24 Hours (Table) 03/03/25 03/03/25 03/04/25 Range/Units 17:46 23:12 05:10 RBC (4.10-5.20) 10*6/uL Hgb (12.0-15.0) g/dL Hct (37.2-46.3) % MCH (27.0-32.0) pg MCHC (32.0-37.0) g/dL Immature Gran # (0.00-0.04) 10*3/uL Lymphocytes # (0.90-5.00) 10*3/uL Eosinophils # (0.04-0.35) 10*3/uL ABG pH 7.46 H (7.35-7.45) ABG pO2 111 H (83-108) mmHg ABG HCO3 29 H (21-25) mmol/L ABG Total CO2 30 H (19-24) mmol/L ABG O2 Saturation 98.7 H (94-97) % Hemoglobin 7.7 L (11.4-16.0) gm/dL Sodium (137-145) mmol/L Glucose (74-99) mg/dL POC Glucose (mg/dL) 134 H 118 H (70-110) mg/dL Calcium (8.4-10.2) mg/dL 03/04/25 03/04/25 03/04/25 Range/Units 05:16 05:20 05:20 RBC 2.73 L (4.10-5.20) 10*6/uL Hgb 7.3 L (12.0-15.0) g/dL Hct 24.4 L (37.2-46.3) % MCH 26.7 L (27.0-32.0) pg MCHC 29.9 L (32.0-37.0) g/dL Immature Gran # 0.12 H (0.00-0.04) 10*3/uL Lymphocytes # 0.68 L (0.90-5.00) 10*3/uL Eosinophils # 0.83 H (0.04-0.35) 10*3/uL ABG pH (7.35-7.45) ABG pO2 (83-108) mmHg ABG HCO3 (21-25) mmol/L ABG Total CO2 (19-24) mmol/L ABG O2 Saturation (94-97) % Hemoglobin (11.4-16.0) gm/dL Sodium 136 L (137-145) mmol/L Glucose 135 H (74-99) mg/dL POC Glucose (mg/dL) 135 H (70-110) mg/dL Calcium 8.0 L (8.4-10.2) mg/dL 03/04/25 Range/Units 12:38 RBC (4.10-5.20) 10*6/uL Hgb (12.0-15.0) g/dL Hct (37.2-46.3) % MCH (27.0-32.0) pg MCHC (32.0-37.0) g/dL Immature Gran # (0.00-0.04) 10*3/uL Lymphocytes # (0.90-5.00) 10*3/uL Eosinophils # (0.04-0.35) 10*3/uL ABG pH (7.35-7.45) ABG pO2 (83-108) mmHg ABG HCO3 (21-25) mmol/L ABG Total CO2 (19-24) mmol/L ABG O2 Saturation (94-97) % Hemoglobin (11.4-16.0) gm/dL Sodium (137-145) mmol/L Glucose (74-99) mg/dL POC Glucose (mg/dL) 143 H (70-110) mg/dL Calcium (8.4-10.2) mg/dL Microbiology - Last 24 Hours (Table) 03/02/25 16:51 Gram Stain - Preliminary Sputum Sputum Culture - Preliminary 03/02/25 13:20 Blood Culture - Preliminary Blood Assessment and Plan Assessment: * Acute respiratory failure due to acute pulmonary edema, resolved. * Status post accidental fall due to losing balance. Patient denies any presyncopal symptoms, loss of consciousness. She is positive it was not a seizure, just accidental fall due to losing balance. * History of CVA with residual spastic left hemiparesis. * Bullous pemphigoid mainly over lower extremities. Follows up with dermatology. [place] is related to Lasix. * Seizure disorder for long time, seizures in remission since 2009--no further seizures. * History of Atrial Fibrillation, on Eliquis. 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 * History of pacemaker. * CHF Plan: * Patient is extubated, doing well. She is fully alert and awake. * CT head 02/23/2025 revealed stable remote right large MCA territory infarct with encephalomalacia again seen. Remote left frontal lobe infarct with encephalomalacia. Additional small regions of encephalomalacia from prior injury involving the bilateral cerebellum. These are all old findings. Nonspecific white matter changes, likely secondary to chronic small vessel ischemic disease. * EEG: Is abnormal. The background slowing is suggestive of mild encephalopathy. There is no focal slowing, epileptiform discharge or seizure on the EEG. * CTA of head and neck revealed no evidence of dissection of the cervical internal carotid arteries or vertebral arteries or any evidence of significant stenosis at the carotid bifurcations. Moderate stenosis involving the cavernous portion of the internal carotid arteries bilaterally secondary to calcified plaque. No evidence of intracranial aneurysm. * Continue Eliquis 5 mg twice daily for stroke prevention from A-fib. * Hemoglobin A1c 5.6, fasting lipid panel with cholesterol 102, LDL 48, HDL 36 and triglycerides 86. Lipids are well-controlled. * Continue seizure medications including Keppra 1500 mg twice daily, Tegretol 200 mg 3 times daily and gabapentin 600 mg 3 times daily. * Tegretol 12.8 (4-12) and Keppra 50.6 (3-60). Patient states that she has been on these medications since 2008 tolerating it well. She does not believe rash is from these medications. Patient wishes to continue same dose of her seizure medications. * For bullous pemphigoid, patient to follow-up with her feed mill tender. Patient states feed mill tender mentioned that rash was from Lasix, which they have discontinued. * Neurology will follow sporadically.
[2025-03-04 17:59] LABS: Glucose,Whole Blood 130 mg/dL (70-110)
[2025-03-04 23:27] LABS: Glucose,Whole Blood 109 mg/dL (70-110)
[2025-03-05 05:03] LABS: Glucose,Whole Blood 102 mg/dL (70-110)
[2025-03-05 05:35] LABS: Basophils # (A) 0.01 10*3/uL (0.00-0.10); Basophils % (A) 0.1 %; Eosinophils # (A) 1.03 10*3/uL (0.04-0.35); Eosinophils % (A) 10.6 %; HCT 24.7 % (37.2-46.3); HGB 7.5 g/dL (12.0-15.0); Lymphocytes # (A) 0.81 10*3/uL (0.90-5.00); Lymphocytes % (A) 8.3 %; MCH 26.8 pg (27.0-32.0); MCHC 30.4 g/dL (32.0-37.0); MCV 88.2 fL (80.0-97.0); Monocytes # (A) 0.51 10*3/uL (0.20-1.00); Monocytes % (A) 5.2 %; Neutrophils # (A) 7.28 10*3/uL (1.80-7.70); Neutrophils % (A) 74.8 %; Platelet Count 344 10*3/uL (140-440); RBC 2.80 10*6/uL (4.10-5.20); RDW 16.8 % (11.5-14.5); WBC 9.74 10*3/uL (4.50-10.00)
[2025-03-05 05:49] LABS: African American GFR (CKD) >90 (>60 ml/min/1.73 sqM); Anion Gap 6 mmol/L; Blood Urea Nitrogen 13 mg/dL (7-17); Calcium 8.3 mg/dL (8.4-10.2); Carbon Dioxide 28 mmol/L (22-30); Chloride 101 mmol/L (98-107); Glucose 90 mg/dL (74-99); Magnesium 2.0 mg/dL (1.6-2.3); Non-African American GFR(CKD) >90 (>60 ml/min/1.73 sqM); Potassium 3.7 mmol/L (3.5-5.1); Sodium 135 mmol/L (137-145)
[2025-03-05] MEDS: POTASSIUM CHLORIDE 10 MEQ in WATER FOR INJECTION 1 100ML.BAG IVPB SCH (06:10)
[2025-03-05] MEDS: VANCOMYCIN TROUGH DUE 1 EACH MISC MISCELLANE ONE (07:06)
--- NOTE | 2025-03-05 07:14 | XR ---
EXAMINATION TYPE: XR chest 1V portable DATE OF EXAM: 03/05/2025 5:43 AM COMPARISON: Multiple radiographs, with the most recent on 03/04/2025 TECHNIQUE: XR chest 1V portable Portable AP radiograph of the chest. CLINICAL INDICATION:Female, 54 years old with history of interval extubation; CHF; FINDINGS: Patient is rotated which limits evaluation. Lungs/Pleura: No pneumothorax or pleural effusion. Left midlung patchy airspace opacities are new. Pulmonary vascularity: Unremarkable. Heart/mediastinum: Cardiomediastinal silhouette is enlarged. Atherosclerotic calcifications are seen in the aorta. Single-lead cardiac conduction device overlying the left hemithorax with lead projecti ng over the right ventricle. Musculoskeletal: No acute osseous pathology. Other findings: None Lines/Tubes: Interval removal of endotracheal and NG tubes. Left internal jugular central venous catheter with distal tip at the superior cavoatrial junction. IMPRESSION: 1. Interval removal of endotracheal and NG tubes. Stable left IJ central venous catheter. 2. Cardiomegaly with development of some left midlung patchy opacity which may represent atelectasis versus infiltrates. [facility], , 03/05/2025 7:12 AM
--- NOTE | 2025-03-05 09:49 | P.PN ---
Subjective This is a pleasant 54 years old female who was recently diagnosed with bullous pemphigoid 3 months ago when she is sent from this facility to [facility], she had a biopsy followed by treatment with doxycycline and taper prednisone over 3 weeks. Also she has extensive long history of CHF and seizure disorder. She was previously in the ICU for severe sepsis. Now presents because of generalized weakness. Patient states she went and fell today while she was trying to get up to go to the restroom she found a green chair on her way she was too weak to move with so she fell on her buttocks she could not get up as usual so she called the family who helped her and called EMS. Patient stayed on the floor for about 25 minutes as she explains. Denies any abdominal pain vomiting or diarrhea Denies dysuria urgency but states she has not been since yesterday and she has been drinking a lot of water for this reason Denies chest pain or dyspnea or coughing. No headache dizziness She is a known case of previous stroke and severe left hemiparesis, patient states it is worse than before this time. Also there was some concern from some slurred speech but no double vision. Patient complains from feeling swollen in her legs She has extensive bullous disease, majority of them are ruptured throughout her trunk and extremities and there is surrounding with erythema more extensive edema in the lower extremities bilaterally. However there is no purulent discharge. 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 quiroz Patient with no fever blood pressure slightly on the low side but patient is symptomatic Blood pressure is fluctuation slightly on the low side Hemoglobin 10 WBC normal 8.6. Rest of labs unremarkable including electrolytes proBNP 1740 CT of the head and neck showing moderate stenosis of bilateral internal carotid arteries CT of the brain showing remote right large MCA territory infarct with encephalomalacia and remote left frontal infarct with encephalomalacia and bilateral cerebellar encephalomalacia Chest x-ray showing mild interstitial prominence may be bronchitis rule out mild pulmonary vascular congestion 02/21 Patient awake alert She looks hypovolemic with positive orthostatic vitals, yesterday we will give her a bolus of 500 cc. Albumin dropped from 2.7 down to 2.0. Patient has slightly worse leg swelling. She has multiple friable and ruptured bullae on the trunk and extremities with mild erythema surrounding these bullae especially in the lower extremities. These are chronic for the last 3 months diagnosed with bullous pemphigoid. Patient states that she took the steroids and that did not help much. She denies chest pain or dyspnea. No abdominal pain or vomiting. Patient currently not on antibiotics per ID team recommendation to keep monitoring while off antibiotics. No fever. Patient was on doxycycline for her bullous lesions at [facility] not sure if she needed for now, keep holding doxycycline. Cardiology is going to evaluate the patient. Neurology service also on the case however patient has chronic hemiplegia, and this morning she is not sure if it is left hemiplegia is at baseline or worse, however is severe and does not make much difference. No slurred speech no blurry vision. 02/22 Patient is looks tired lethargic Kirlin in bed and was shivering in the morning and developing fever also she is tachycardic and blood pressure is soft No chest pain or abdominal pain Still has erythema and swelling of both lower extremities suspected secondary to cellulitis, MRSA suspected and currently she is on IV vancomycin with infectious disease team recommendation She has good urine output and creatinine within the reference range. We give her a bolus of albumin given her hypoalbuminemia also if blood pressure remains low may consider a bolus of normal saline later on Midodrine was prescribed on admission as needed for hypotension but was not given by staff despite low blood pressure therefore we are going to switch it to standing dose Monitor labs and electrolytes and vitals closely 02/23 Patient yesterday was found unresponsive on the floor and there was foam in her mouth A team was called Patient got intubated and placed on mechanical ventilation transferred to the ICU. Patient currently intubated and sedated. Yesterday patient was hypotensive and tachycardic and altered mental status. This morning required Levophed 02/23 Patient remains in the ICU intubated and sedated, PEEP is 5 improved Female family member at bedside. Patient earlier was able to work She opened eyes and tried to communicate and she could recognize the family member, she was anxious as per family Patient required small dose of pressors earlier Continue on same antibiotics as per infectious disease team Off IV fluid Echocardiogram showed ejection fraction of 25 to 30% Increased left ventricular mass with very severe LV dysfunction Sputum culture growing Staph aureus pansensitive he Patient's rash of the lower extremity is significantly improved Discussed the case with pulmonary team 03/04 Resume the care of the patient today Patient remains in the ICU, she remains intubated on mechanical ventilation, currently this morning she is off sedation, she opens eyes spontaneously and to verbal commands she follows commands. She is not getting any pressors, currently getting D5W at 50 mL/h Also patient on broad-spectrum antibiotics of Eraxis, cefepime and IV vancomycin Repeat chest x-ray this morning showing significant improvement in her bilateral consolidation and pulmonary edema since To the ICU Pulmonary team are trying to continue with of sedation for possible extubation today 03/05 Patient is s/p extubation yesterday. Today she is fully awake oriented able to communicate, she follows command. She does not look in distress. She has mild hoarseness of voice which is expected. Also she will be tested for her ability to tolerate diet and dysphagia No chest pain no abdominal pain She still has fever around 100. She remains on antibiotic IV vancomycin and cefepime and Eraxis and ID team following closely Patient can be moved out of the ICU once cleared by critical care team Objective - Vital Signs Vital signs: Vital Signs Temp 100.5 F H 03/05/25 04:00 Pulse 98 03/05/25 07:00 Resp 16 03/05/25 07:00 BP 115/74 03/05/25 07:00 Pulse Ox 87 L 03/05/25 07:00 FiO2 35 03/04/25 09:19 Intake & Output 03/04/25 03/05/25 03/05/25 18:59 06:59 18:59 Intake Total 228 156 13 Output Total 1475 930 75 Balance -1247 -774 -62 Weight 58.2 kg 56.6 kg Intake: IV 170 156 13 0.9 Sodium Chloride 90 120 10 Arterial Line 30 36 3 Dextrose 5% in Water 1, 50 000 ml @ 50 mls/hr IV . Q20H ONE Rx#:[id number] Tube Feeding 58 Output: Urine 1475 930 75 Other: Voiding Method Indwelling Catheter Indwelling Catheter ABP, PAP, CO, CI - Last Documented Arterial Blood Pressure 114/55 - Exam GENERAL: The patient is awake alert and oriented x 3, not in distress. HEENT: Pupils are round and equally reacting to light. EOMI. No scleral icterus. No conjunctival pallor. Normocephalic, atraumatic. No pharyngeal erythema. No thyromegaly. CARDIOVASCULAR: S1 and S2 present. No murmurs, rubs, or gallops. PULMONARY: Chest is clear to auscultation, no wheezing , no crackles. ABDOMEN: Soft, nontender, nondistended, normoactive bowel sounds. No palpable organomegaly. MUSCULOSKELETAL: No joint swelling or deformity. EXTREMITIES: No cyanosis, clubbing, or pedal edema. -Multiple eroded bullae and friable bullae with surrounding erythema throughout trunk and extremities ( bullous pemphigoid ), significantly improved and the almost dried up -NEUROLOGICAL: Gross neurological examination did not reveal any focal deficits. sever left hemiparesis (old per pt) SKIN: No rashes. no petechiae. - Labs CBC & Chem 7: 03/05/25 05:00 03/05/25 05:00 Labs: Abnormal Lab Results - Last 24 Hours (Table) 03/04/25 03/04/25 03/05/25 Range/Units 12:38 17:58 05:00 RBC 2.80 L (4.10-5.20) 10*6/uL Hgb 7.5 L (12.0-15.0) g/dL Hct 24.7 L (37.2-46.3) % MCH 26.8 L (27.0-32.0) pg MCHC 30.4 L (32.0-37.0) g/dL Immature Gran # 0.10 H (0.00-0.04) 10*3/uL Lymphocytes # 0.81 L (0.90-5.00) 10*3/uL Eosinophils # 1.03 H (0.04-0.35) 10*3/uL Sodium (137-145) mmol/L Creatinine (0.52-1.04) mg/dL POC Glucose (mg/dL) 143 H 130 H (70-110) mg/dL Calcium (8.4-10.2) mg/dL 03/05/25 Range/Units 05:00 RBC (4.10-5.20) 10*6/uL Hgb (12.0-15.0) g/dL Hct (37.2-46.3) % MCH (27.0-32.0) pg MCHC (32.0-37.0) g/dL Immature Gran # (0.00-0.04) 10*3/uL Lymphocytes # (0.90-5.00) 10*3/uL Eosinophils # (0.04-0.35) 10*3/uL Sodium 135 L (137-145) mmol/L Creatinine 0.43 L (0.52-1.04) mg/dL POC Glucose (mg/dL) (70-110) mg/dL Calcium 8.3 L (8.4-10.2) mg/dL Microbiology - Last 24 Hours (Table) 03/02/25 13:20 Blood Culture - Preliminary Blood 02/27/25 09:02 Blood Culture - Final Blood 03/02/25 16:51 Gram Stain - Preliminary Sputum Sputum Culture - Preliminary Assessment and Plan Assessment: seizure disorder Severe sepsis seizure disorder Acute hypoxic respiratory failure s/p intubation/extubated on 03/04 Bilateral lower extremity cellulitis thought secondary to MRSA Hypotension secondary to above, improved Worsening weakness on the left side associated with fall without syncope and transient slurred speech and some swallowing difficulty, rule out new stroke or worsening stroke Bullous pemphigoid with multiple eroded and friable bullae throughout the trunk and extremities with surrounding erythema on doxycycline and prednisone previously Cardiomyopathy with ejection fraction 35% Coronary artery disease History of PE History of stroke with persistent hemiplegia Moderate bilateral internal carotid artery stenosis Seizure disorder with history of breakthrough seizure Generalized weakness Plan: Continue with mechanical ventilation, currently off sedation and pulmonary team trying extubation Pulmonary/critical care team consult Continue with IV vancomycin and f IV cefepime and Eraxis per ID team Patient follow-up with vial gauger as an outpatient for her bullous lesions Cardiology team consulted for her severe cardiomyopathy Wound team consult Neurology team consult, continue with current seizure medication neurologist, currently on Tegretol 200 mg gabapentin 600 mg Vimpat 50 mg and Keppra 1500 mg Labs and medication were reviewed.. Continue same treatment. Continue with symptomatic treatment. Resume home medication. Monitor labs and vitals. DVT and GI prophylaxis. Further recommendations as per clinical course of the patient DVT prophylaxis: Eliquis GI Prophylaxis: Pepcid PT/OT: Pending Prognosis is guarded
[2025-03-05 11:20] LABS: Glucose,Whole Blood 105 mg/dL (70-110)
--- NOTE | 2025-03-05 11:29 | P.PN ---
Subjective Progress Note Date: 03/05/25 Seen today on 03/02/2025, patient remains in the ICU intubated mechanically ventilated on assist-control rate of 20 tidal volume 400 FiO2 40% PEEP of 5 ABG showed a pO2 of 128 pCO2 43 pH of 7.47 has FiO2 was cut down to 35%. Last night the patient had a Tmax of 102, remains on antibiotics as per infectious disease including vancomycin and cefepime. Patient is on propofol at 35 mg/kg/min she is requiring norepinephrine at 0.07 mcg/kg/min. Patient was initially intubated on 02/22 extubated on 02/26 reintubated on 02/27. Her mental status remains marginal at best, patient follows simple instructions but she does not seem to open her eyes, and she does not maintain any eye contact. WBC count today is 8.4 hemoglobin 7.3 platelets are normal ABG as noted earlier electrolytes are normal except for low potassium of 3.2, renal profile is normal chest x-ray showed minimal multifocal airspace opacities with left lower lobe atelectasis and possibly a small tiny left pleural effusion. Patient was seen today on 03/03/2025, remains in the ICU, intubated and mechanically ventilated, on assist-control rate of 20 tidal volume 400 FiO2 35% PEEP of 5 ABG showed a pO2 of 107 pCO2 39 pH of 7.49. Propofol is presently on hold patient is on IV fluid 0.9 at 50 cc/h she is also receiving vital HP at 15 mL/h. Her sputum has been positive for MSSA her urine is positive for E. coli. Her antibiotics are being addressed by infectious disease on the case. WBC count is 8.1 hemoglobin 7.2 platelets are 302 basic metabolic profile is normal, renal profile is normal. Blood sugar is 134. Considering the patient is awake and at least she is opening her eyes although she does not maintain a good eye contact, this is the best she has been neurologically, and I will go ahead and give the patient another trial of weaning utilizing pressure support of 12 and CPAP. And will decide whether to taper down her pressure support or to proceed to weaning and extubation sometime later today. If not we will try the same thing again tomorrow. Chest x-ray today showed minimal multifocal airspace opacities. The patient is seen today March 04, 2025 in follow-up in the intensive care unit. She remains intubated on the mechanical ventilator currently on assist-control mode at a rate of 20, tidal volume 400, FiO2 35% and a PEEP of 5. Morning blood gases reveal a PO2 of 111, pCO2 41 and pH of 7.46. She remains off sedation. She is more awake and alert. Following simple commands. She has D5W at 50 mL/h. She is being nourished with vital HP at 58 mL/h which is her goal. Normal saline at keep vein open. White count 8.6. Hemoglobin 7.3. Platelets 298. Sodium 136. Potassium 3.8. Bicarb 28. BUN 17. Creatinine 0.55. Glucose 135. Follow-up sputum culture revealed no growth. Blood cultures revealed no growth. She remains on cefepime and vancomycin. Anticoagulated with Eliquis. Chest x-ray reveals no focal consolidation. The patient is seen today March 05, 2025 in follow-up in the intensive care unit. She was extubated yesterday. She is currently sitting up in bed. Awake and alert in no acute distress. Maintaining good O2 saturations in the 90s on 2 L/min per nasal cannula. She is receiving D5W at 50 mL/h. Normal saline at 20 mL/h. She remains on vancomycin and cefepime. Anticoagulated with Eliquis. Remains on Eraxis. Chest x-ray reveals interval removal of endotracheal tube and NG tube. Stable left IJ central venous catheter in place. Cardiomegaly with some left midlung patchy opacity. White count 9.7. Hemoglobin 7.5. Platelets 344. Sodium 135. Potassium 3.7. Bicarb 28. BUN 13. Creatinine 0.43. Glucose 102. Follow-up blood culture revealed no growth. Sputum culture revealed no growth. Objective - Vital Signs Vital signs: Vital Signs Temp 100.5 F H 03/05/25 04:00 Pulse 98 03/05/25 07:00 Resp 16 03/05/25 07:00 BP 115/74 03/05/25 07:00 Pulse Ox 87 L 03/05/25 07:00 FiO2 35 03/04/25 09:19 Intake & Output 03/04/25 03/05/25 03/05/25 18:59 06:59 18:59 Intake Total 228 156 13 Output Total 6654 930 75 Balance -1247 -774 -62 Weight 58.2 kg 56.6 kg Intake: IV 170 156 13 0.9 Sodium Chloride 90 120 10 Arterial Line 30 36 3 Dextrose 5% in Water 1, 50 000 ml @ 50 mls/hr IV . Q20H ONE Rx#:[id number] Tube Feeding 58 Output: Urine 1475 930 75 Other: Voiding Method Indwelling Catheter Indwelling Catheter ABP, PAP, CO, CI - Last Documented Arterial Blood Pressure 114/55 - Exam GENERAL EXAM: Alert, thin, 54-year-old female, appears older than stated age, on 2 L nasal cannula, comfortable in no apparent distress. HEAD: Normocephalic. EYES: Normal reaction of pupils, equal size. NOSE: Clear with pink turbinates. THROAT: No erythema or exudates. NECK: No masses, no JVD. CHEST: No chest wall deformity. LUNGS: Equal air entry with few scattered rhonchi. CVS: S1 and S2 normal with no audible murmur, regular rhythm. ABDOMEN: No hepatosplenomegaly, normal bowel sounds, no guarding or rigidity. SPINE: No scoliosis or deformity SKIN: No rashes CENTRAL NERVOUS SYSTEM: No focal deficits, tone is normal in all 4 extremities. EXTREMITIES: There is no peripheral edema. No clubbing, no cyanosis. Peripheral pulses are intact. - Labs CBC & Chem 7: 03/05/25 05:00 03/05/25 05:00 Labs: Abnormal Lab Results - Last 24 Hours (Table) 03/04/25 03/04/25 03/05/25 Range/Units 12:38 17:58 05:00 RBC 2.80 L (4.10-5.20) 10*6/uL Hgb 7.5 L (12.0-15.0) g/dL Hct 24.7 L (37.2-46.3) % MCH 26.8 L (27.0-32.0) pg MCHC 30.4 L (32.0-37.0) g/dL Immature Gran # 0.10 H (0.00-0.04) 10*3/uL Lymphocytes # 0.81 L (0.90-5.00) 10*3/uL Eosinophils # 1.03 H (0.04-0.35) 10*3/uL Sodium (137-145) mmol/L Creatinine (0.52-1.04) mg/dL POC Glucose (mg/dL) 143 H 130 H (70-110) mg/dL Calcium (8.4-10.2) mg/dL 03/05/25 Range/Units 05:00 RBC (4.10-5.20) 10*6/uL Hgb (12.0-15.0) g/dL Hct (37.2-46.3) % MCH (27.0-32.0) pg MCHC (32.0-37.0) g/dL Immature Gran # (0.00-0.04) 10*3/uL Lymphocytes # (0.90-5.00) 10*3/uL Eosinophils # (0.04-0.35) 10*3/uL Sodium 135 L (137-145) mmol/L Creatinine 0.43 L (0.52-1.04) mg/dL POC Glucose (mg/dL) (70-110) mg/dL Calcium 8.3 L (8.4-10.2) mg/dL Microbiology - Last 24 Hours (Table) 03/02/25 13:20 Blood Culture - Preliminary Blood 02/27/25 09:02 Blood Culture - Final Blood 03/02/25 16:51 Gram Stain - Preliminary Sputum Sputum Culture - Preliminary Assessment and Plan Assessment: Acute hypoxic respiratory failure secondary to acute pulmonary edema Acute systolic congestive heart failure ejection fraction of 25 to 30% Left lung opacification noted on 02/27/2025, requiring bronchoscopy and extraction of mucous plug noted in the left upper lobe., Resolved Failed extubation, patient lasted almost 24 hours off mechanical ventilation. Had to be reintubated on 02/27/2025. Extubated again on 03/04/2025 Multifocal opacities noted on previous chest x-ray, suggestive of MSSA pneumonia with positive sputum cultures for MSSA. Follow-up cultures showed no growth. 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 Hypotension secondary to severe sepsis History of underlying coronary artery disease History of pulmonary embolism History of bilateral internal carotid artery stenosis History of CVA with persistent hemiplegia Paroxysmal atrial fibrillation History of pulmonary embolism, on Eliquis History of pacemaker implantation Hypothyroidism History of psoriasis Plan: The patient was seen and evaluated Chest x-ray, labs and medications reviewed Microbiology reviewed Extubated yesterday Speech therapy for swallow evaluation Stable and on 2 L nasal cannula Remains on Eraxis, vancomycin and cefepime per ID service Anticoagulated with Eliquis Remains on amiodarone and beta-blockers Remains on her home medication We will continue to follow and make further recommendations based on her clinical status I have personally seen and examined the patient, performed the documentation and the assessment and plan as written. Number of minutes spent on the visit: 10 Dictation was produced using [employer] dictation software. Please excuse any grammatical, word or spelling errors.
[2025-03-05] MEDS: VANCOMYCIN 1,250 MG in SODIUM CHLORIDE 0.9% 250 ML IVPB SCH (13:02)
--- NOTE | 2025-03-05 14:04 | P.PN ---
Subjective Progress Note Date: 03/05/25 The patient was seen this morning. She continues to be intubated on mechanical ventilation she continues to be hemodynamically stable requiring norepinephrine but she is requiring less norepinephrine compared to before. Urine output continues to be marginal. She is on Lasix IV at 40 mg twice daily. She is not on any cardiomyopathy medications because of the hemodynamical instability and requiring norepinephrine. The echo showed an EF between 25 to 30%. The physical examination is remarkable for intubated patient on mechanical ventilation with diminished breathing sounds bilaterally and regular rate and rhythm. February 26, 2025 The patient was seen and evaluated this morning. She continues to be intubated. She is still on Lasix IV. The pressure still low requiring norepinephrine but we are coming down with a dose. The chest x-ray was reviewed this morning and seems to be overall better in terms of fluid overload. We potentially can come down with a dose of IV Lasix and possible wean the patient off from norepinephrine. The physical examination is remarkable for regular rhythm with diminished breathing sounds bilaterally and mild bilateral lower extremity edema and skin changes noted. She is on oral anticoagulation. February 27, 2025 The patient was seen and evaluated this morning. She was extubated yesterday and then she reintubated again because she developed hypoxic respiratory failure. The chest x-ray showed complete opacification of the left lung. She is in process of having possible bronchoscopy. Hemodynamically she remains unstable requiring small dose of norepinephrine. The physical examination is remarkable for regular rate and rhythm with a systolic murmur at the right and left upper sternal border and wheezing was noted also. February 28, 2025 The patient was seen and evaluated this morning. She underwent bronchoscopy yesterday. The chest x-ray today appears to be better. The complete opacification of the left lung has resolved completely. Currently she is intubated on mechanical ventilation. She is off norepinephrine at this point and hemodynamically stable and maintaining normal sinus mechanism. Physical examination is remarkable for regular rhythm with a systolic murmur at the right upper sternal border and clear breathing sounds bilaterally and no edema was noted in the lower extremities with extensive skin rash. March 01, 2025 Intubed and sedated. She is back on levophed. + fever, cxr ok March 02, 2025 Pt seen in ICU. She remains intubated, off sedation she does follow commands per nursing. She is still on levophed. March 03, 2025 Patient seen in ICU. Remains intubated, off sedation, following simple commands. Hemoglobin 7.2, creatinine 0.44. She had run of VT 120 beats overnight. Off levophed since overnight. 03/04/2025 Seen in ICU. Will get sedation vacation today and breathing trial. No further episodes of sustained or nonsustained VT noticed over last 24 hours. 03/05/2025 Seen in ICU. Was extubated yesterday. Recovering from bolus pemphigoid , skin lesions are healing well. Denies any chest pain chest pressure. Shortness of breath is improving. Assessment Acute hypoxic respiratory failure Severe cardiomyopathy Heart failure with reduced ejection fraction Paroxysmal atrial fibrillation Sinus rhythm at this point Multiple comorbid conditions including anemia Plan: Continue Lopressor 12.5 twice daily. Continue oral anticoagulation and amiodarone Monitor the kidney function and electrolytes and hemoglobin Overall prognosis is guarded Further recommendations pending clinic course Objective - Vital Signs Vital signs: Vital Signs Temp 98.3 F 03/05/25 12:00 Pulse 97 03/05/25 13:00 Resp 16 03/05/25 13:00 BP 105/55 03/05/25 13:00 Pulse Ox 97 03/05/25 13:00 FiO2 35 03/04/25 09:19 Intake & Output 03/04/25 03/05/25 03/05/25 18:59 06:59 18:59 Intake Total 228 156 13 Output Total 1475 930 75 Balance -1247 -774 -62 Weight 58.2 kg 56.6 kg Intake: IV 170 156 13 0.9 Sodium Chloride 90 120 10 Arterial Line 30 36 3 Dextrose 5% in Water 1, 50 000 ml @ 50 mls/hr IV . Q20H ONE Rx#:[id number] Tube Feeding 58 Output: Urine 1475 930 75 Other: Voiding Method Indwelling Catheter Indwelling Catheter ABP, PAP, CO, CI - Last Documented Arterial Blood Pressure 104/53 - Labs CBC & Chem 7: 03/05/25 05:00 03/05/25 05:00 Labs: Abnormal Lab Results - Last 24 Hours (Table) 03/04/25 03/05/25 03/05/25 Range/Units 17:58 05:00 05:00 RBC 2.80 L (4.10-5.20) 10*6/uL Hgb 7.5 L (12.0-15.0) g/dL Hct 24.7 L (37.2-46.3) % MCH 26.8 L (27.0-32.0) pg MCHC 30.4 L (32.0-37.0) g/dL Immature Gran # 0.10 H (0.00-0.04) 10*3/uL Lymphocytes # 0.81 L (0.90-5.00) 10*3/uL Eosinophils # 1.03 H (0.04-0.35) 10*3/uL Sodium 135 L (137-145) mmol/L Creatinine 0.43 L (0.52-1.04) mg/dL POC Glucose (mg/dL) 130 H (70-110) mg/dL Calcium 8.3 L (8.4-10.2) mg/dL Microbiology - Last 24 Hours (Table) 03/02/25 13:20 Blood Culture - Preliminary Blood 02/27/25 09:02 Blood Culture - Final Blood 03/02/25 16:51 Gram Stain - Preliminary Sputum Sputum Culture - Preliminary
--- NOTE | 2025-03-05 16:46 | P.PN ---
Subjective Progress Note Date: 03/04/25 Principal diagnosis: Reason for follow-up is multiple skin lesion question of cellulitis and multiple antibiotic allergies Patient is a 54-year-old female with a past medical history significant for PE seizure disorder coronary artery disease has been diagnosed with bullous pemphigoid patient has been brought into the hospital concerning for weakness patient did have multiple skin lesions concerning for cellulitis prompting this consultation. On today's evaluation that is 03/04/2025, patient has been afebrile this morning, patient has been extubated is breathing comfortably and is currently on 4 L nasal oxygen, patient slightly lethargic not a good historian no vomiting or diarrhea has been reported Patient white count is 8.66, creatinine 0.55 Objective - Vital Signs Vital signs: Vital Signs Temp 98.9 F 03/04/25 04:00 Pulse 110 H 03/04/25 07:00 Resp 20 03/04/25 07:00 BP 106/58 03/04/25 07:00 Pulse Ox 94 L 03/04/25 12:40 FiO2 35 03/04/25 09:19 Intake & Output 03/03/25 03/04/25 03/04/25 18:59 06:59 18:59 Intake Total 2657 1447 111 Output Total 2115 1290 100 Balance 542 157 11 Weight 58.2 kg 58.2 kg Intake: IV 683 661 53 Arterial Line 33 36 3 Cefepime 2 gm In Sodium 100 25 Chloride 0.9% 100 ml @ 25 mls/hr IVPB Q8H [facility] Rx#: [id number] Dextrose 5% in Water 1, 550 550 50 000 ml @ 50 mls/hr IV . Q20H [facility] Rx#:[id number] Magnesium Sulfate-D5w Pmx 50 1 gm In Dextrose/Water 1 100ml.bag @ 100 mls/hr IVPB ONCE [facility] Rx#: [id number] Intake, IV Titration 1188 Amount Anidulafungin 100 mg In 588 Sodium Chloride 0.9% 100 ml @ 84 mls/hr IVPB DAILY [facility] Rx#:[id number] Magnesium Sulfate-D5w Pmx 100 1 gm In Dextrose/Water 1 100ml.bag @ 100 mls/hr IVPB ONCE [facility] Rx#: [id number] Vancomycin 1,000 mg In 250 Sodium Chloride 0.9% 250 ml @ 125 mls/hr IVPB Q8H [facility] Rx#:[id number] Vancomycin 1,250 mg In 250 Sodium Chloride 0.9% 250 ml @ 125 mls/hr IVPB Q12HR@0600,1800 [facility] Rx#: [id number] Tube Feeding 696 696 58 Other 90 90 Output: Urine 2115 1290 100 Other: Voiding Method Indwelling Catheter Indwelling Catheter ABP, PAP, CO, CI - Last Documented Arterial Blood Pressure 99/49 - Exam GENERAL DESCRIPTION: Middle-age female lying in bed in no distress RESPIRATORY SYSTEM: Unlabored breathing , decreased breath sounds at bases HEART: S1 S2 regular rate and rhythm , ABDOMEN: Soft , no tenderness SKIN: Multiple ulcerated lesions but no drainage - Labs CBC & Chem 7: 03/05/25 05:00 03/05/25 05:00 Labs: Abnormal Lab Results - Last 24 Hours (Table) 03/03/25 03/03/25 03/04/25 Range/Units 17:46 23:12 05:10 RBC (4.10-5.20) 10*6/uL Hgb (12.0-15.0) g/dL Hct (37.2-46.3) % MCH (27.0-32.0) pg MCHC (32.0-37.0) g/dL Immature Gran # (0.00-0.04) 10*3/uL Lymphocytes # (0.90-5.00) 10*3/uL Eosinophils # (0.04-0.35) 10*3/uL ABG pH 7.46 H (7.35-7.45) ABG pO2 111 H (83-108) mmHg ABG HCO3 29 H (21-25) mmol/L ABG Total CO2 30 H (19-24) mmol/L ABG O2 Saturation 98.7 H (94-97) % Hemoglobin 7.7 L (11.4-16.0) gm/dL Sodium (137-145) mmol/L Glucose (74-99) mg/dL POC Glucose (mg/dL) 134 H 118 H (70-110) mg/dL Calcium (8.4-10.2) mg/dL 03/04/25 03/04/25 03/04/25 Range/Units 05:16 05:20 05:20 RBC 2.73 L (4.10-5.20) 10*6/uL Hgb 7.3 L (12.0-15.0) g/dL Hct 24.4 L (37.2-46.3) % MCH 26.7 L (27.0-32.0) pg MCHC 29.9 L (32.0-37.0) g/dL Immature Gran # 0.12 H (0.00-0.04) 10*3/uL Lymphocytes # 0.68 L (0.90-5.00) 10*3/uL Eosinophils # 0.83 H (0.04-0.35) 10*3/uL ABG pH (7.35-7.45) ABG pO2 (83-108) mmHg ABG HCO3 (21-25) mmol/L ABG Total CO2 (19-24) mmol/L ABG O2 Saturation (94-97) % Hemoglobin (11.4-16.0) gm/dL Sodium 136 L (137-145) mmol/L Glucose 135 H (74-99) mg/dL POC Glucose (mg/dL) 135 H (70-110) mg/dL Calcium 8.0 L (8.4-10.2) mg/dL 03/04/25 Range/Units 12:38 RBC (4.10-5.20) 10*6/uL Hgb (12.0-15.0) g/dL Hct (37.2-46.3) % MCH (27.0-32.0) pg MCHC (32.0-37.0) g/dL Immature Gran # (0.00-0.04) 10*3/uL Lymphocytes # (0.90-5.00) 10*3/uL Eosinophils # (0.04-0.35) 10*3/uL ABG pH (7.35-7.45) ABG pO2 (83-108) mmHg ABG HCO3 (21-25) mmol/L ABG Total CO2 (19-24) mmol/L ABG O2 Saturation (94-97) % Hemoglobin (11.4-16.0) gm/dL Sodium (137-145) mmol/L Glucose (74-99) mg/dL POC Glucose (mg/dL) 143 H (70-110) mg/dL Calcium (8.4-10.2) mg/dL Microbiology - Last 24 Hours (Table) 07/05/25 16:51 Gram Stain - Preliminary Sputum Sputum Culture - Preliminary 03/02/25 13:20 Blood Culture - Preliminary Blood Assessment and Plan (1) Skin ulcer of multiple sites Current Visit: Yes Status: Acute Code(s): L98.499 - NON-PRESSURE CHRONIC ULCER OF SKIN OF SITES W UNSP SEVERITY SNOMED Code(s): 47320643 (2) Bullous pemphigoid Current Visit: Yes Status: Acute Code(s): L12.0 - BULLOUS PEMPHIGOID SNOMED Code(s): 40849534 (3) Allergy to multiple antibiotics Current Visit: No Status: Acute Code(s): Z88.1 - ALLERGY STATUS TO OTHER ANTIBIOTIC AGENTS SNOMED Code(s): 077955638 Plan: 1 Patient presented to hospital with fall due to generalized weakness and did have multiple skin lesion with outpatient diagnosis of bullous pemphigoid patient did have worsening of her respiratory status requiring intubation sputum culture positive for MSSA urine with E. coli drug-resistant E. coli sensitive to ceftriaxone 2patient did have worsening of respiratory status requiring reintubation bro nchoscopy concerning for mucous plugging BAL culture so far negative 3patient did have improvement her fever pattern white count is normal and the patient has been extubated, patient is currently being treated with the cefepime Vanco and Eraxis while waiting for the culture to finalize Dictation was produced using [employer] software. please excuse any grammatical, word or spelling errors.
--- NOTE | 2025-03-05 16:46 | P.PN ---
Subjective Progress Note Date: 03/05/25 Principal diagnosis: Reason for follow-up is multiple skin lesion question of cellulitis and multiple antibiotic allergies Patient is a 54-year-old female with a past medical history significant for PE seizure disorder coronary artery disease has been diagnosed with bullous pemphigoid patient has been brought into the hospital concerning for weakness patient did have multiple skin lesions concerning for cellulitis prompting this consultation. On today's evaluation that is 03/05/2025, Patient did have a low-grade fever of 100.5 F at 4 AM the patient is afebrile this afternoon patient is currently breathing comfortably and is on room air denies any chest pain shortness of breath or cough no abdominal pain no diarrhea. Patient white count 9.74, creatinine 0.43, repeat blood and sputum culture currently pending Objective - Vital Signs Vital signs: Vital Signs Temp 98.3 F 03/05/25 12:00 Pulse 108 H 03/05/25 15:00 Resp 10 L 03/05/25 15:00 BP 126/78 03/05/25 15:00 Pulse Ox 94 L 03/05/25 15:00 FiO2 35 03/04/25 09:19 Intake & Output 03/04/25 03/05/25 03/05/25 18:59 06:59 18:59 Intake Total 228 156 117 Output Total 5281 554 5250 Balance -1247 -774 -1033 Weight 58.2 kg 56.6 kg Intake: IV 170 156 117 0.9 Sodium Chloride 90 120 90 Arterial Line 30 36 27 Dextrose 5% in Water 1, 50 000 ml @ 50 mls/hr IV . Q20H [facility] Rx#:[id number] Tube Feeding 58 Output: Urine 0962 748 0339 Other: Voiding Method Indwelling Catheter Indwelling Catheter ABP, PAP, CO, CI - Last Documented Arterial Blood Pressure 104/57 - Exam GENERAL DESCRIPTION: Middle-age female lying in bed in no distress RESPIRATORY SYSTEM: Unlabored breathing , decreased breath sounds at bases HEART: S1 S2 regular rate and rhythm , ABDOMEN: Soft , no tenderness SKIN: Multiple ulcerated lesions but no drainage - Labs CBC & Chem 7: 03/05/25 05:00 03/05/25 05:00 Labs: Abnormal Lab Results - Last 24 Hours (Table) 03/04/25 03/05/25 03/05/25 Range/Units 17:58 05:00 05:00 RBC 2.80 L (4.10-5.20) 10*6/uL Hgb 7.5 L (12.0-15.0) g/dL Hct 24.7 L (37.2-46.3) % MCH 26.8 L (27.0-32.0) pg MCHC 30.4 L (32.0-37.0) g/dL Immature Gran # 0.10 H (0.00-0.04) 10*3/uL Lymphocytes # 0.81 L (0.90-5.00) 10*3/uL Eosinophils # 1.03 H (0.04-0.35) 10*3/uL Sodium 135 L (137-145) mmol/L Creatinine 0.43 L (0.52-1.04) mg/dL POC Glucose (mg/dL) 130 H (70-110) mg/dL Calcium 8.3 L (8.4-10.2) mg/dL Microbiology - Last 24 Hours (Table) 03/02/25 16:51 Gram Stain - Final Sputum Sputum Culture - Final 03/02/25 13:20 Blood Culture - Preliminary Blood 02/27/25 09:02 Blood Culture - Final Blood Assessment and Plan (1) Skin ulcer of multiple sites Current Visit: Yes Status: Acute Code(s): L98.499 - NON-PRESSURE CHRONIC ULCER OF SKIN OF SITES W UNSP SEVERITY SNOMED Code(s): 71009472 (2) Bullous pemphigoid Current Visit: Yes Status: Acute Code(s): L12.0 - BULLOUS PEMPHIGOID SNOMED Code(s): 98827214 (3) Allergy to multiple antibiotics Current Visit: No Status: Acute Code(s): Z88.1 - ALLERGY STATUS TO OTHER ANTIBIOTIC AGENTS SNOMED Code(s): 304882658 Plan: 1 Patient presented to hospital with fall due to generalized weakness and did have multiple skin lesion with outpatient diagnosis of bullous pemphigoid patient did have worsening of her respiratory status requiring intubation sputum culture positive for MSSA urine with E. coli drug-resistant E. coli sensitive to ceftriaxone 2patient did have worsening of respiratory status requiring reintubation bronchoscopy concerning for mucous plugging BAL culture so far negative 3patient did have improvement her fever pattern white count is normal 4patient will be treated with the cefepime Vanco and Eraxis while waiting for the culture to finalize Dictation was produced using [employer] dictation software. please excuse any grammatical, word or spelling errors. Time with Patient: Less than 30
[2025-03-05 18:18] LABS: Glucose,Whole Blood 105 mg/dL (70-110)
[2025-03-06 01:23] LABS: Glucose,Whole Blood 87 mg/dL (70-110)
[2025-03-06 06:11] LABS: Basophils # (A) 0.03 10*3/uL (0.00-0.10); Basophils % (A) 0.3 %; Eosinophils # (A) 1.05 10*3/uL (0.04-0.35); Eosinophils % (A) 12.2 %; HCT 25.4 % (37.2-46.3); HGB 7.8 g/dL (12.0-15.0); Lymphocytes # (A) 0.88 10*3/uL (0.90-5.00); Lymphocytes % (A) 10.2 %; MCH 27.1 pg (27.0-32.0); MCHC 30.7 g/dL (32.0-37.0); MCV 88.2 fL (80.0-97.0); Monocytes # (A) 0.52 10*3/uL (0.20-1.00); Monocytes % (A) 6.0 %; Neutrophils # (A) 6.08 10*3/uL (1.80-7.70); Neutrophils % (A) 70.8 %; Platelet Count 416 10*3/uL (140-440); RBC 2.88 10*6/uL (4.10-5.20); RDW 17.1 % (11.5-14.5); WBC 8.60 10*3/uL (4.50-10.00)
[2025-03-06 06:27] LABS: African American GFR (CKD) >90 (>60 ml/min/1.73 sqM); Anion Gap 7 mmol/L; Blood Urea Nitrogen 11 mg/dL (7-17); Calcium 8.5 mg/dL (8.4-10.2); Carbon Dioxide 24 mmol/L (22-30); Chloride 105 mmol/L (98-107); Glucose 98 mg/dL (74-99); Non-African American GFR(CKD) >90 (>60 ml/min/1.73 sqM); Potassium 3.7 mmol/L (3.5-5.1); Sodium 136 mmol/L (137-145)
[2025-03-06] MEDS: POTASSIUM CHLORIDE 10 MEQ in WATER FOR INJECTION 1 100ML.BAG IVPB SCH (06:59)
--- NOTE | 2025-03-06 07:17 | XR ---
EXAMINATION TYPE: XR chest 1V portable DATE OF EXAM: 03/06/2025 3:58 AM COMPARISON: Multiple radiographs, with the most recent on 03/05/2025 TECHNIQUE: XR chest 1V portable Portable AP radiograph of the chest. CLINICAL INDICATION:Female, 54 years old with history of f/u left lung opacity; FINDINGS: Patient is rotated which limits evaluation. Lungs/Pleura: No pneumothorax or pleural effusion. Left basilar airspace opacity is redemonstrated. E levation of the left hemidiaphragm. Pulmonary vascularity: Pulmonary vascular congestion. Heart/mediastinum: Cardiomediastinal silhouette is enlarged. Atherosclerotic calcifications are seen in the aorta. Single-lead cardiac conduction device overlying the left hemithorax with lead projecti ng over the right ventricle. Musculoskeletal: No acute osseous pathology. Other findings: None Lines/Tubes: Left internal jugular central venous catheter with distal tip at the superior cavoatrial junction. IMPRESSION: 1. Stable left IJ central venous catheter. 2. Cardiomegaly with pulmonary venous congestion. Correlate for CHF exacerbation. 3. Left basilar patchy airspace opacities concerning for possible pneumonia. [facility], , 03/06/2025 7:15 AM
--- NOTE | 2025-03-06 08:20 | P.PN ---
Subjective This is a pleasant 54 years old female who was recently diagnosed with bullous pemphigoid 3 months ago when she is sent from this facility to [facility], she had a biopsy followed by treatment with doxycycline and taper prednisone over 3 weeks. Also she has extensive long history of CHF and seizure disorder. She was previously in the ICU for severe sepsis. Now presents because of generalized weakness. Patient states she went and fell today while she was trying to get up to go to the restroom she found a green chair on her way she was too weak to move with so she fell on her buttocks she could not get up as usual so she called the family who helped her and called EMS. Patient stayed on the floor for about 25 minutes as she explains. Denies any abdominal pain vomiting or diarrhea Denies dysuria urgency but states she has not been since yesterday and she has been drinking a lot of water for this reason Denies chest pain or dyspnea or coughing. No headache dizziness She is a known case of previous stroke and severe left hemiparesis, patient states it is worse than before this time. Also there was some concern from some slurred speech but no double vision. Patient complains from feeling swollen in her legs She has extensive bullous disease, majority of them are ruptured throughout her trunk and extremities and there is surrounding with erythema more extensive edema in the lower extremities bilaterally. However there is no purulent discharge. No significant tenderness in this erythematous area Her senior tax analyst Dr. Noriega neurologist is Dr. quiroz Patient with no fever blood pressure slightly on the low side but patient is symptomatic Blood pressure is fluctuation slightly on the low side Hemoglobin 10 WBC normal 8.6. Rest of labs unremarkable including electrolytes proBNP 1740 CT of the head and neck showing moderate stenosis of bilateral internal carotid arteries CT of the brain showing remote right large MCA territory infarct with encephalomalacia and remote left frontal infarct with encephalomalacia and bilateral cerebellar encephalomalacia Chest x-ray showing mild interstitial prominence may be bronchitis rule out mild pulmonary vascular congestion 02/21 Patient awake alert She looks hypovolemic with positive orthostatic vitals, yesterday we will give her a bolus of 500 cc. Albumin dropped from 2.7 down to 2.0. Patient has slightly worse leg swelling. She has multiple friable and ruptured bullae on the trunk and extremities with mild erythema surrounding these bullae especially in the lower extremities. These are chronic for the last 3 months diagnosed with bullous pemphigoid. Patient states that she took the steroids and that did not help much. She denies chest pain or dyspnea. No abdominal pain or vomiting. Patient currently not on antibiotics per ID team recommendation to keep monitoring while off antibiotics. No fever. Patient was on doxycycline for her bullous lesions at [facility] not sure if she needed for now, keep holding doxycycline. Cardiology is going to evaluate the patient. Neurology service also on the case however patient has chronic hemiplegia, and this morning she is not sure if it is left hemiplegia is at baseline or worse, however is severe and does not make much difference. No slurred speech no blurry vision. 02/22 Patient is looks tired lethargic Kirlin in bed and was shivering in the morning and developing fever also she is tachycardic and blood pressure is soft No chest pain or abdominal pain Still has erythema and swelling of both lower extremities suspected secondary to cellulitis, MRSA suspected and currently she is on IV vancomycin with infectious disease team recommendation She has good urine output and creatinine within the reference range. We give her a bolus of albumin given her hypoalbuminemia also if blood pressure remains low may consider a bolus of normal saline later on Midodrine was prescribed on admission as needed for hypotension but was not given by staff despite low blood pressure therefore we are going to switch it to standing dose Monitor labs and electrolytes and vitals closely 02/23 Patient yesterday was found unresponsive on the floor and there was foam in her mouth A team was called Patient got intubated and placed on mechanical ventilation transferred to the ICU. Patient currently intubated and sedated. Yesterday patient was hypotensive and tachycardic and altered mental status. This morning required Levophed 02/23 Patient remains in the ICU intubated and sedated, PEEP is 5 improved Female family member at bedside. Patient earlier was able to work She opened eyes and tried to communicate and she could recognize the family member, she was anxious as per family Patient required small dose of pressors earlier Continue on same antibiotics as per infectious disease team Off IV fluid Echocardiogram showed ejection fraction of 25 to 30% Increased left ventricular mass with very severe LV dysfunction Sputum culture growing Staph aureus pansensitive he Patient's rash of the lower extremity is significantly improved Discussed the case with pulmonary team 03/04 Resume the care of the patient today Patient remains in the ICU, she remains intubated on mechanical ventilation, currently this morning she is off sedation, she opens eyes spontaneously and to verbal commands she follows commands. She is not getting any pressors, currently getting D5W at 50 mL/h Also patient on broad-spectrum antibiotics of Eraxis, cefepime and IV vancomycin Repeat chest x-ray this morning showing significant improvement in her bilateral consolidation and pulmonary edema since To the ICU Pulmonary team are trying to continue with of sedation for possible extubation today 03/05 Patient is s/p extubation yesterday. Today she is fully awake oriented able to communicate, she follows command. She does not look in distress. She has mild hoarseness of voice which is expected. Also she will be tested for her ability to tolerate diet and dysphagia No chest pain no abdominal pain She still has fever around 100. She remains on antibiotic IV vancomycin and cefepime and Eraxis and ID team following closely Patient can be moved out of the ICU once cleared by critical care team 03/06 Patient still have fever spikes around 100 degree. She remains on broad- spectrum antibiotics with IV vancomycin, cefepime and Eraxis Multiple skin lesions very top and healed nicely. No chest pain or dyspnea or diarrhea. Patient has not started eating yet, she needs to pass swallow evaluation which is pending now She developed few seconds of nonsustained V. tach, also there was suspicious for torsade the point however QTc is 421 this morning on EKG Potassium 3.7 been replaced Monitor magnesium level as well Active Medications Generic Name Dose Route Start Last Admin Trade Name Freq PRN Reason Stop Dose Admin Acetaminophen 325 mg 02/21/25 01:15 03/02/25 07:42 Acetaminophen Tab 325 Mg Tab PO 325 mg Q6HR PRN Administration Fever and/ or Pain 1-3 Amiodarone HCl 200 mg 02/21/25 09:00 03/05/25 13:13 Amiodarone 200 Mg Tab PO Not Given DAILY [facility] Apixaban 5 mg 02/21/25 09:00 03/05/25 19:40 Apixaban 5 Mg Tab PO Not Given BID [facility] Protocol Atorvastatin Calcium 80 mg 02/21/25 09:00 03/05/25 13:13 Atorvastatin 80 Mg Tab PO Not Given DAILY [facility] Bisacodyl 10 mg 03/01/25 17:26 03/01/25 17:47 Bisacodyl 10 Mg Supp RECTAL 10 mg DAILY PRN Administration Constipation Carbamazepine 200 mg 02/21/25 09:00 03/05/25 19:41 Carbamazepine 200 Mg Tab PO Not Given TID ADDIE Famotidine 20 mg 02/21/25 09:00 03/05/25 20:04 Famotidine 20 Mg/2 Ml Vial IV 20 mg Q12HR ADDIE Administration Gabapentin 600 mg 02/21/25 16:00 03/05/25 19:41 Gabapentin 300 Mg Cap PO Not Given TID ADDIE Hydromorphone HCl 1 mg 02/26/25 17:27 03/04/25 03:13 Hydromorphone 1 Mg/Ml 1 Ml Syringe IVP 1 mg Q3HR PRN Administration Pain 4-10 Cefepime HCl 2 gm/ Sodium 100 mls @ 25 mls/hr 02/23/25 10:00 03/06/25 01:13 Chloride IVPB 25 mls/hr Q8H ADDIE Administration Anidulafungin 100 mg/ Sodium 100 mls @ 84 mls/hr 03/03/25 09:00 03/05/25 11:02 Chloride IVPB 84 mls/hr DAILY ADDIE Administration Protocol Vancomycin HCl 1,250 mg/ 250 mls @ 125 mls/hr 03/05/25 12:00 03/05/25 23:08 Sodium Chloride IVPB 125 mls/hr Q12H ADDIE Administration Potassium Chloride 10 meq/ IV 100 mls @ 100 mls/hr 03/06/25 06:45 03/06/25 06:59 Solution IVPB 03/06/25 08:44 100 mls/hr Q1H ADDIE Administration Protocol Lacosamide 50 mg 02/28/25 21:00 03/05/25 20:04 Lacosamide Iv (Ages 17+ Yrs) 200 Mg/20 Ml Ml IVP 50 mg BID ADDIE Administration Levetiracetam 1,500 mg 02/23/25 10:30 03/05/25 20:05 Levetiracetam Iv 500 Mg/5 Ml Vial IV 1,500 mg BID ADDIE Administration Lorazepam 2 mg 02/28/25 16:44 Lorazepam 1 Mg/0.5 Ml Vial IV ONCE PRN Seizures Metoprolol Tartrate 12.5 mg 03/03/25 12:45 03/05/25 19:41 Metoprolol Tartrate 12.5 Mg Tab PO Not Given BID ADDIE Miscellaneous Information 1 each 02/23/25 05:53 Magnesium Replacement Protocol 1 Each Mis MISCELLANE DAILY PRN Per Protocol Protocol Miscellaneous Information 1 each 02/23/25 16:15 Potassium Replacement Protocol 1 Each Misc MISCELLANE DAILY PRN Per Protocol Protocol Naloxone HCl 0.2 mg 02/20/25 15:25 Naloxone 0.4 Mg/Ml 1 Ml Vial IV Q2M PRN Opioid Reversal Nystatin 500,000 unit 02/21/25 18:00 03/05/25 19:41 Nystatin 100,000 Unit/Ml Susp 500,000 Unit/5 Ml Cup PO Not Given QID [facility] Protocol Petrolatum 1 applic 02/22/25 09:58 Zinc Oxide Paste (Z-Guard) 1 Applic TOPICAL DAILY PRN Wound Healing Protocol Prednisone 10 mg 02/21/25 10:15 03/05/25 13:14 Prednisone 10 Mg Tab PO Not Given DAILY [facility] Quetiapine Fumarate 25 mg 02/21/25 09:00 03/05/25 19:41 Quetiapine 25 Mg Tab PO Not Given BID [facility] Senna/Docusate Sodium 1 each 03/01/25 21:00 03/05/25 19:41 Sennosides-Docusate Sodium 1 Each Tab PO Not Given BID [facility] Objective - Vital Signs Vital signs: Vital Signs Temp 98.3 F 03/06/25 04:00 Pulse 111 H 03/06/25 07:00 Resp 18 03/06/25 07:00 BP 120/71 03/06/25 07:00 Pulse Ox 98 03/06/25 07:00 FiO2 35 03/04/25 09:19 Intake & Output 03/05/25 03/06/25 03/06/25 18:59 06:59 18:59 Intake Total 156 1156 63 Output Total 1500 1335 85 Balance -1344 -179 -22 Weight 54.7 kg Intake: IV 156 906 63 0.9 Sodium Chloride 120 120 10 Arterial Line 36 36 3 Cefepime 2 gm In Sodium 200 Chloride 0.9% 100 ml @ 25 mls/hr IVPB Q8H [facility] Rx#: [id number] Dextrose 5% in Water 1, 550 50 000 ml @ 50 mls/hr IV . Q20H [facility] Rx#:[id number] Intake, IV Titration 250 Amount Vancomycin 1,250 mg In 250 Sodium Chloride 0.9% 250 ml @ 125 mls/hr IVPB Q12H [facility] Rx#:[id number] Output: Urine 1500 1335 85 Other: Voiding Method Indwelling Catheter Indwelling Catheter ABP, PAP, CO, CI - Last Documented Arterial Blood Pressure 127/49 - Exam GENERAL: The patient is awake alert and oriented x 3, not in distress. HEENT: Pupils are round and equally reacting to light. EOMI. No scleral icterus. No conjunctival pallor. Normocephalic, atraumatic. No pharyngeal erythema. No thyromegaly. CARDIOVASCULAR: S1 and S2 present. No murmurs, rubs, or gallops. PULMONARY: Chest is clear to auscultation, no wheezing , no crackles. ABDOMEN: Soft, nontender, nondistended, normoactive bowel sounds. No palpable organomegaly. MUSCULOSKELETAL: No joint swelling or deformity. EXTREMITIES: No cyanosis, clubbing, or pedal edema. -Multiple eroded bullae and friable bullae with surrounding erythema throughout trunk and extremities ( bullous pemphigoid ), significantly improved and the leslee ost dried up -NEUROLOGICAL: Gross neurological examination did not reveal any focal deficits. sever left hemiparesis (old per pt) SKIN: No rashes. no petechiae. - Labs CBC & Chem 7: 03/06/25 05:42 03/06/25 05:42 Labs: Abnormal Lab Results - Last 24 Hours (Table) 03/06/25 03/06/25 Range/Units 05:42 05:42 RBC 2.88 L (4.10-5.20) 10*6/uL Hgb 7.8 L (12.0-15.0) g/dL Hct 25.4 L (37.2-46.3) % MCHC 30.7 L (32.0-37.0) g/dL Lymphocytes # 0.88 L (0.90-5.00) 10*3/uL Eosinophils # 1.05 H (0.04-0.35) 10*3/uL Sodium 136 L (137-145) mmol/L Microbiology - Last 24 Hours (Table) 03/02/25 13:20 Blood Culture - Preliminary Blood 03/02/25 16:51 Gram Stain - Final Sputum Sputum Culture - Final Assessment and Plan Assessment: seizure disorder Severe sepsis seizure disorder Acute hypoxic respiratory failure s/p intubation/extubated on 03/04 Bilateral lower extremity cellulitis thought secondary to MRSA nonsustained V. tach Hypotension secondary to above, improved Worsening weakness on the left side associated with fall without syncope and transient slurred speech and some swallowing difficulty, rule out new stroke or worsening stroke Bullous pemphigoid with multiple eroded and friable bullae throughout the trunk and extremities with surrounding erythema on doxycycline and prednisone previously Cardiomyopathy with ejection fraction 35% Coronary artery disease History of PE History of stroke with persistent hemiplegia Moderate bilateral internal carotid artery stenosis Seizure disorder with history of breakthrough seizure Generalized weakness Plan: Patient is s/p extubation Follow-up swallow evaluation Monitor potassium to keep level above 4 and magnesium keep level above 2 Pulmonary/critical care team consult Continue with IV vancomycin and f IV cefepime and Eraxis per ID team Patient follow-up with cost controller as an outpatient for her bullous lesions Cardiology team consulted for her severe cardiomyopathy Wound team consult Neurology team consult, continue with current seizure medication neurologist, currently on Tegretol 200 mg gabapentin 600 mg Vimpat 50 mg and Keppra 1500 mg Labs and medication were reviewed.. Continue same treatment. Continue with symptomatic treatment. Resume home medication. Monitor labs and vitals. DVT and GI prophylaxis. Further recommendations as per clinical course of the patient DVT prophylaxis: Eliquis GI Prophylaxis: Pepcid PT/OT: Pending Prognosis is guarded
[2025-03-06] MEDS ORDERED: Magnesium Replacement Protocol 1 EACH MISC MISCELLANE PRN (09:04)
[2025-03-06] MEDS: MAGNESIUM SULFATE-D5W PMX 1 GM in DEXTROSE/WATER 1 100ML.BAG IVPB ONE (10:12)
[2025-03-06 11:29] LABS: Glucose,Whole Blood 113 mg/dL (70-110)
--- NOTE | 2025-03-06 11:44 | P.PN ---
Subjective Progress Note Date: 03/06/25 Seen today on 03/02/2025, patient remains in the ICU intubated mechanically ventilated on assist-control rate of 20 tidal volume 400 FiO2 40% PEEP of 5 ABG showed a pO2 of 128 pCO2 43 pH of 7.47 has FiO2 was cut down to 35%. Last night the patient had a Tmax of 102, remains on antibiotics as per infectious disease including vancomycin and cefepime. Patient is on propofol at 35 mg/kg/min she is requiring norepinephrine at 0.07 mcg/kg/min. Patient was initially intubated on 02/22 extubated on 02/26 reintubated on 02/27. Her mental status remains marginal at best, patient follows simple instructions but she does not seem to open her eyes, and she does not maintain any eye contact. WBC count today is 8.4 hemoglobin 7.3 platelets are normal ABG as noted earlier electrolytes are normal except for low potassium of 3.2, renal profile is normal chest x-ray showed minimal multifocal airspace opacities with left lower lobe atelectasis and possibly a small tiny left pleural effusion. Patient was seen today on 03/03/2025, remains in the ICU, intubated and mechanically ventilated, on assist-control rate of 20 tidal volume 400 FiO2 35% PEEP of 5 ABG showed a pO2 of 107 pCO2 39 pH of 7.49. Propofol is presently on hold patient is on IV fluid 0.9 at 50 cc/h she is also receiving vital HP at 15 mL/h. Her sputum has been positive for MSSA her urine is positive for E. coli. Her antibiotics are being addressed by infectious disease on the case. WBC count is 8.1 hemoglobin 7.2 platelets are 302 basic metabolic profile is normal, renal profile is normal. Blood sugar is 134. Considering the patient is awake and at least she is opening her eyes although she does not maintain a good eye contact, this is the best she has been neurologically, and I will go ahead and give the patient another trial of weaning utilizing pressure support of 12 and CPAP. And will decide whether to taper down her pressure support or to proceed to weaning and extubation sometime later today. If not we will try the same thing again tomorrow. Chest x-ray today showed minimal multifocal airspace opacities. The patient is seen today March 04, 2025 in follow-up in the intensive care unit. She remains intubated on the mechanical ventilator currently on assist-control mode at a rate of 20, tidal volume 400, FiO2 35% and a PEEP of 5. Morning blood gases reveal a PO2 of 111, pCO2 41 and pH of 7.46. She remains off sedation. She is more awake and alert. Following simple commands. She has D5W at 50 mL/h. She is being nourished with vital HP at 58 mL/h which is her goal. Normal saline at keep vein open. White count 8.6. Hemoglobin 7.3. Platelets 298. Sodium 136. Potassium 3.8. Bicarb 28. BUN 17. Creatinine 0.55. Glucose 135. Follow-up sputum culture revealed no growth. Blood cultures revealed no growth. She remains on cefepime and vancomycin. Anticoagulated with Eliquis. Chest x-ray reveals no focal consolidation. The patient is seen today March 05, 2025 in follow-up in the intensive care unit. She was extubated yesterday. She is currently sitting up in bed. Awake and alert in no acute distress. Maintaining good O2 saturations in the 90s on 2 L/min per nasal cannula. She is receiving D5W at 50 mL/h. Normal saline at 20 mL/h. She remains on vancomycin and cefepime. Anticoagulated with Eliquis. Remains on Eraxis. Chest x-ray reveals interval removal of endotracheal tube and NG tube. Stable left IJ central venous catheter in place. Cardiomegaly with some left midlung patchy opacity. White count 9.7. Hemoglobin 7.5. Platelets 344. Sodium 135. Potassium 3.7. Bicarb 28. BUN 13. Creatinine 0.43. Glucose 102. Follow-up blood culture revealed no growth. Sputum culture revealed no growth. Patient is seen today March 06, 2025 in follow-up in the intensive care unit. She is currently sitting up in bed. Awake and alert in no acute distress. Maintaining O2 saturation in the 90s on 2 L/min per nasal cannula. She has D5W at 50 mL/h. She is continued on Eraxis, cefepime and vancomycin. Chest x-ray continues to show cardiomegaly with pulmonary vascular congestion. Left patchy basilar airspace opacity. Initial blood cultures were positive for MSSA. Urine culture positive for E. coli. Follow-up blood cultures revealed no growth. Sputum culture revealed no growth. White count 8.6. Hemoglobin 7.8. Platelets 416. Sodium 136. Potassium 3.7. Bicarb 24. BUN 11. Creatinine 0.54. Glucose 98. She is afebrile. Hemodynamically stable. She is continued on prednisone. Anticoagulated with Eliquis. Continued on her seizure medications. Objective - Vital Signs Vital signs: Vital Signs Temp 97.9 F 03/06/25 08:00 Pulse 109 H 03/06/25 10:00 Resp 14 03/06/25 10:00 BP 132/89 03/06/25 10:00 Pulse Ox 100 03/06/25 10:00 FiO2 35 03/04/25 09:19 Intake & Output 03/05/25 03/06/25 03/06/25 18:59 06:59 18:59 Intake Total 156 1156 102 Output Total 1500 1335 485 Balance -1344 -179 -383 Weight 54.7 kg Intake: IV 156 906 102 0.9 Sodium Chloride 120 120 40 Arterial Line 36 36 12 Cefepime 2 gm In Sodium 200 Chloride 0.9% 100 ml @ 25 mls/hr IVPB Q8H [facility] Rx#: [id number] Dextrose 5% in Water 1, 550 50 000 ml @ 50 mls/hr IV . Q20H [facility] Rx#:[id number] Intake, IV Titration 250 Amount Vancomycin 1,250 mg In 250 Sodium Chloride 0.9% 250 ml @ 125 mls/hr IVPB Q12H [facility] Rx#:[id number] Output: Urine 1500 1335 485 Other: Voiding Method Indwelling Catheter Indwelling Catheter Indwelling Catheter ABP, PAP, CO, CI - Last Documented Arterial Blood Pressure 112/55 - Exam GENERAL EXAM: Alert, thin, 54-year-old female, appears older than stated age, sitting up in bed, on 2 L nasal cannula, in no apparent distress. HEAD: Normocephalic. EYES: Normal reaction of pupils, equal size. NOSE: Clear with pink turbinates. THROAT: No erythema or exudates. NECK: No masses, no JVD. CHEST: No chest wall deformity. LUNGS: Equal air entry with few scattered rhonchi, crackles in the posterior bases. CVS: S1 and S2 normal with no audible murmur, regular rhythm. ABDOMEN: No hepatosplenomegaly, normal bowel sounds, no guarding or rigidity. SPINE: No scoliosis or deformity SKIN: No rashes CENTRAL NERVOUS SYSTEM: No focal deficits, tone is normal in all 4 extremities. EXTREMITIES: There is no peripheral edema. No clubbing, no cyanosis. Peripheral pulses are intact. - Labs CBC & Chem 7: 03/06/25 05:42 03/06/25 05:42 Labs: Abnormal Lab Results - Last 24 Hours (Table) 03/06/25 03/06/25 03/06/25 Range/Units 05:42 05:42 11:27 RBC 2.88 L (4.10-5.20) 10*6/uL Hgb 7.8 L (12.0-15.0) g/dL Hct 25.4 L (37.2-46.3) % MCHC 30.7 L (32.0-37.0) g/dL Lymphocytes # 0.88 L (0.90-5.00) 10*3/uL Eosinophils # 1.05 H (0.04-0.35) 10*3/uL Sodium 136 L (137-145) mmol/L POC Glucose (mg/dL) 113 H (70-110) mg/dL Microbiology - Last 24 Hours (Table) 03/02/25 13:20 Blood Culture - Preliminary Blood 03/02/25 16:51 Gram Stain - Final Sputum Sputum Culture - Final Assessment and Plan Assessment: Acute hypoxic respiratory failure secondary to acute pulmonary edema Acute systolic congestive heart failure ejection fraction of 25 to 30% Left lung opacification noted on 02/27/2025, requiring bronchoscopy and extraction of mucous plug noted in the left upper lobe., Resolved Failed extubation, patient lasted almost 24 hours off mechanical ventilation. Had to be reintubated on 02/27/2025. Extubated again on 03/04/2025. Currently on oxygen at 2 L/min per nasal Multifocal opacities noted on previous chest x-ray, suggestive of MSSA pneumonia with positive sputum cultures for MSSA. Follow-up cultures showed no growth. Follow-up chest x-ray shows improvement Bullous pemphigoid disease Paroxysmal atrial fibrillation, anticoagulated with Eliquis History of seizure disorder Chronic bilateral lower extremity cellulitis secondary to MRSA Hypotension secondary to severe sepsis History of underlying coronary artery disease History of pulmonary embolism History of bilateral internal carotid artery stenosis History of CVA with persistent hemiplegia Paroxysmal atrial fibrillation History of pulmonary embolism, on Eliquis History of pacemaker implantation Hypothyroidism History of psoriasis Plan: The patient was seen and evaluated Chest x-ray, labs and medications reviewed Speech therapy for swallow evaluation Recommend dysphagia 1: Pured texture diet Remains in aspiration precaution Stable and on 2 L nasal cannula Remains on Eraxis, vancomycin and cefepime per ID service Anticoagulated with Eliquis Remains on her home antiseizure medication Could transfer out of the ICU later today if she remains stable We will continue to follow I have personally seen and examined the patient, performed the documentation and the assessment and plan as written. Number of minutes spent on the visit: 10 Dictation was produced using [employer] dictation software. Please excuse any grammatical, word or spelling errors.
--- NOTE | 2025-03-06 12:05 | P.PN ---
Subjective Progress Note Date: 03/06/25 The patient was seen this morning. She continues to be intubated on mechanical ventilation she continues to be hemodynamically stable requiring norepinephrine but she is requiring less norepinephrine compared to before. Urine output continues to be marginal. She is on Lasix IV at 40 mg twice daily. She is not on any cardiomyopathy medications because of the hemodynamical instability and requiring norepinephrine. The echo showed an EF between 25 to 30%. The physical examination is remarkable for intubated patient on mechanical ventilation with diminished breathing sounds bilaterally and regular rate and rhythm. February 26, 2025 The patient was seen and evaluated this morning. She continues to be intubated. She is still on Lasix IV. The pressure still low requiring norepinephrine but we are coming down with a dose. The chest x-ray was reviewed this morning and seems to be overall better in terms of fluid overload. We potentially can come down with a dose of IV Lasix and possible wean the patient off from norepinephrine. The physical examination is remarkable for regular rhythm with diminished breathing sounds bilaterally and mild bilateral lower extremity edema and skin changes noted. She is on oral anticoagulation. February 27, 2025 The patient was seen and evaluated this morning. She was extubated yesterday and then she reintubated again because she developed hypoxic respiratory failure. The chest x-ray showed complete opacification of the left lung. She is in process of having possible bronchoscopy. Hemodynamically she remains unstable requiring small dose of norepinephrine. The physical examination is remarkable for regular rate and rhythm with a systolic murmur at the right and left upper sternal border and wheezing was noted also. February 28, 2025 The patient was seen and evaluated this morning. She underwent bronchoscopy yesterday. The chest x-ray today appears to be better. The complete opacification of the left lung has resolved completely. Currently she is intubated on mechanical ventilation. She is off norepinephrine at this point and hemodynamically stable and maintaining normal sinus mechanism. Physical examination is remarkable for regular rhythm with a systolic murmur at the right upper sternal border and clear breathing sounds bilaterally and no edema was noted in the lower extremities with extensive skin rash. March 01, 2025 Intubed and sedated. She is back on levophed. + fever, cxr ok March 02, 2025 Pt seen in ICU. She remains intubated, off sedation she does follow commands per nursing. She is still on levophed. March 03, 2025 Patient seen in ICU. Remains intubated, off sedation, following simple commands. Hemoglobin 7.2, creatinine 0.44. She had run of VT 120 beats overnight. Off levophed since overnight. 03/04/2025 Seen in ICU. Will get sedation vacation today and breathing trial. No further episodes of sustained or nonsustained VT noticed over last 24 hours. 03/05/2025 Seen in ICU. Was extubated yesterday. Recovering from bolus pemphigoid , skin lesions are healing well. Denies any chest pain chest pressure. Shortness of breath is improving. 03/06/2025 Seen and examined at bedside. Yesterday night she had a event with respiratory status and hypoxia. At that time she had a 20 beat NSVT run. Since then she h as not had any further NSVT's. Sinus tachycardia is a baseline rhythm. Assessment Acute hypoxic respiratory failure Severe cardiomyopathy Heart failure with reduced ejection fraction Frequent PVCs and NSVT's Paroxysmal atrial fibrillation, Sinus rhythm at this point Multiple comorbid conditions including anemia Plan: Increase metoprolol to 25 twice daily. Continue Eliquis 5 twice daily, amioda segun 200 daily, Lipitor 40 mg daily, Continue oral anticoagulation and amiodarone Monitor the kidney function and electrolytes and hemoglobin Overall prognosis is guarded Further recommendations pending clinic course Objective - Vital Signs Vital signs: Vital Signs Temp 97.9 F 03/06/25 08:00 Pulse 101 H 03/06/25 11:00 Resp 16 03/06/25 11:00 BP 111/68 03/06/25 11:00 Pulse Ox 100 03/06/25 11:00 FiO2 35 03/04/25 09:19 Intake & Output 03/05/25 03/06/25 03/06/25 18:59 06:59 18:59 Intake Total 156 1156 102 Output Total 1500 1335 485 Balance -1344 -179 -383 Weight 54.7 kg Intake: IV 156 906 102 0.9 Sodium Chloride 120 120 40 Arterial Line 36 36 12 Cefepime 2 gm In Sodium 200 Chloride 0.9% 100 ml @ 25 mls/hr IVPB Q8H [facility] Rx#: [id number] Dextrose 5% in Water 1, 550 50 000 ml @ 50 mls/hr IV . Q20H [facility] Rx#:[id number] Intake, IV Titration 250 Amount Vancomycin 1,250 mg In 250 Sodium Chloride 0.9% 250 ml @ 125 mls/hr IVPB Q12H [facility] Rx#:[id number] Output: Urine 1500 1335 485 Other: Voiding Method Indwelling Catheter Indwelling Catheter Indwelling Catheter ABP, PAP, CO, CI - Last Documented Arterial Blood Pressure 90/74 - Labs CBC & Chem 7: 03/06/25 05:42 03/06/25 11:39 Labs: Abnormal Lab Results - Last 24 Hours (Table) 03/06/25 03/06/25 03/06/25 Range/Units 05:42 05:42 11:27 RBC 2.88 L (4.10-5.20) 10*6/uL Hgb 7.8 L (12.0-15.0) g/dL Hct 25.4 L (37.2-46.3) % MCHC 30.7 L (32.0-37.0) g/dL Lymphocytes # 0.88 L (0.90-5.00) 10*3/uL Eosinophils # 1.05 H (0.04-0.35) 10*3/uL Sodium 136 L (137-145) mmol/L POC Glucose (mg/dL) 113 H (70-110) mg/dL Microbiology - Last 24 Hours (Table) 03/02/25 13:20 Blood Culture - Preliminary Blood 03/02/25 16:51 Gram Stain - Final Sputum Sputum Culture - Final
[2025-03-06] MEDS: METOPROLOL TARTRATE 12.5 MG TAB PO SCH (12:24)
--- NOTE | 2025-03-06 13:21 | CDI ---
Documentation Clarification Form Date: 03/06/2025 12:10:11 PM From: Jacquie Ohara RN, CCDS Phone: [phone] Admit Date: 02/20/2025 03:28:00 PM Patient Name: Hannah Campos Visit Number: [id number] Discharge Date: ATTENTION: The Clinical Documentation Specialists (CDI) and [facility] Coding Staff appreciate your assistance in clarifying documentation. Please respond to the clarification below the line at the bottom and electronically sign. The CDI & [facility] Coding staff will review the response and follow-up if needed. Please note: Queries are made part of the Legal Health Record. If you have any questions, please contact the author of this message via ITS. DoctorYowza Miller E Sheet Severe sepsis is documented in the Internal Medicine progress note starting on 02/22/25. For each diagnosis, documentation must be clear to determine if the condition was present at the time of the patients inpatient admission or developed during the hospital stay. Additional clarification regarding the severe sepsis is requested. History/Risk Factors: CVA, Left hemiparesis, Coronary Artery Disease, Heart failure Seizure disorder, Pulmonary Embolus Clinical Indicators: 54-year-old female present with bullous pemphigoid disease, majority of them are ruptured throughout her truck and extremities and there is surrounding erythema more extensive edema in the lower extremities bilaterally. 02/20 VS: (16:32) 114.66 99 18 99% RA, (18:46) 94/63 97 18 02/20 Labs: WBC 8.63, 02/21 VS (09:50) 99/50 107 13 02/22 VS: (09:45) 112/72 118 98.5 91% 3/L 02/22 WBC 11.00 02/22 Progress note Severe sepsis. Bilateral lower extremity cellulitis thought secondary to MRSA. Hypotension secondary to severe sepsis Treatment: Offal Separator / Telemetry Vancomycin HCl 1,250 Once 02/21 >IVPB Q 12 HRS02/21-03/05 (PTD) Aztreonam 2 GM IVPB Q 8 HRS 02/23-02/25 DC Cefepime HCl 2 GM 02/23-03/06 Definition of Present on Admission (POA): A diagnosis present at the time the order for admission to inpatient status was written. Please clarify if the sepsis was POA [ ] Y = Yes, the condition was present at the time of the order for inpatient admission. [ ] N = No, the condition was not present at the time of the order for inpatient admission. [ ] W = Clinically undetermined if the condition was present at the time of the order for inpatient admission. (Template Last Revised: October 2020) 7/6 note: Dr. Biggs note: patient was in sepsis on admission then had septic shock MTDD
[2025-03-06] MEDS ORDERED: METOPROLOL TARTRATE 25 MG TAB PO SCH (21:00)
[2025-03-06 23:14] LABS: Glucose,Whole Blood 123 mg/dL (70-110)
--- NOTE | 2025-03-07 07:01 | P.PN ---
Subjective Progress Note Date: 03/06/25 Principal diagnosis: Reason for follow-up is multiple skin lesion question of cellulitis and multiple antibiotic allergies Patient is a 54-year-old female with a past medical history significant for PE seizure disorder coronary artery disease has been diagnosed with bullous pemphigoid patient has been brought into the hospital concerning for weakness patient did have multiple skin lesions concerning for cellulitis prompting this consultation. On today's evaluation that is 03/06/2025,the patient denies any fever or any chills, patient is breathing comfortably on 2 L nasal cannula oxygen, the patient denies chest pain shortness of breath and no significant cough, patient denies abdominal pain, no nausea vomiting or diarrhea. Patient white count is 8.60 creatinine 0.5 4 repeat blood cultures currently pending chest x-ray cardiomegaly pulm vascular congestion left basilar opacity possible pneumonia Objective - Vital Signs Vital signs: Vital Signs Temp 97.9 F 03/06/25 08:00 Pulse 92 03/06/25 13:00 Resp 14 03/06/25 13:00 BP 117/64 03/06/25 13:00 Pulse Ox 100 03/06/25 13:00 FiO2 35 03/04/25 09:19 Intake & Output 03/05/25 03/06/25 03/06/25 18:59 06:59 18:59 Intake Total 156 1156 772 Output Total 1500 1335 785 Balance -1344 -179 -13 Weight 54.7 kg 54.7 kg Intake: IV 156 906 122 0.9 Sodium Chloride 120 120 60 Arterial Line 36 36 12 Cefepime 2 gm In Sodium 200 Chloride 0.9% 100 ml @ 25 mls/hr IVPB Q8H [facility] Rx#: [id number] Dextrose 5% in Water 1, 550 50 000 ml @ 50 mls/hr IV . Q20H [facility] Rx#:[id number] Intake, IV Titration 250 650 Amount Anidulafungin 100 mg In 100 Sodium Chloride 0.9% 100 ml @ 84 mls/hr IVPB DAILY [facility] Rx#:[id number] Cefepime 2 gm In Sodium 100 Chloride 0.9% 100 ml @ 25 mls/hr IVPB Q8H [facility] Rx#: [id number] Magnesium Sulfate-D5w Pmx 100 1 gm In Dextrose/Water 1 100ml.bag @ 100 mls/hr IVPB ONCE [facility] Rx#: [id number] Potassium Chloride 10 meq 100 In Water For Injection 1 100ml.bag @ 100 mls/hr IVPB Q1H [facility] Rx#: [id number] Vancomycin 1,250 mg In 250 250 Sodium Chloride 0.9% 250 ml @ 125 mls/hr IVPB Q12H [facility] Rx#:[id number] Output: Urine 1500 1335 785 Other: Voiding Method Indwelling Catheter Indwelling Catheter Indwelling Catheter ABP, PAP, CO, CI - Last Documented Arterial Blood Pressure 90/74 - Exam GENERAL DESCRIPTION: Middle-age female lying in bed in no distress RESPIRATORY SYSTEM: Unlabored breathing , decreased breath sounds at bases HEART: S1 S2 regular rate and rhythm , ABDOMEN: Soft , no tenderness SKIN: Multiple ulcerated lesions but no drainage - Labs CBC & Chem 7: 03/06/25 05:42 03/06/25 11:39 Labs: Abnormal Lab Results - Last 24 Hours (Table) 03/06/25 03/06/25 03/06/25 Range/Units 05:42 05:42 11:27 RBC 2.88 L (4.10-5.20) 10*6/uL Hgb 7.8 L (12.0-15.0) g/dL Hct 25.4 L (37.2-46.3) % MCHC 30.7 L (32.0-37.0) g/dL Lymphocytes # 0.88 L (0.90-5.00) 10*3/uL Eosinophils # 1.05 H (0.04-0.35) 10*3/uL Sodium 136 L (137-145) mmol/L POC Glucose (mg/dL) 113 H (70-110) mg/dL Microbiology - Last 24 Hours (Table) 03/02/25 13:20 Blood Culture - Preliminary Blood 03/02/25 16:51 Gram Stain - Final Sputum Sputum Culture - Final Assessment and Plan (1) Skin ulcer of multiple sites Current Visit: Yes Status: Acute Code(s): L98.499 - NON-PRESSURE CHRONIC ULCER OF SKIN OF SITES W UNSP SEVERITY SNOMED Code(s): 09250133 (2) Bullous pemphigoid Current Visit: Yes Status: Acute Code(s): L12.0 - BULLOUS PEMPHIGOID SNOMED Code(s): 63678361 (3) Allergy to multiple antibiotics Current Visit: No Status: Acute Code(s): Z88.1 - ALLERGY STATUS TO OTHER ANTIBIOTIC AGENTS SNOMED Code(s): 574263028 Plan: 1 Patient presented to hospital with fall due to generalized weakness and did have multiple skin lesion with outpatient diagnosis of bullous pemphigoid patient did have worsening of her respiratory status requiring intubation sputum culture positive for MSSA urine with E. coli drug-resistant E. coli sensitive to ceftriaxone 2patient did have worsening of respiratory status requiring reintubation bronchoscopy concerning for mucous plugging BAL culture so far negative 3patient did have improvement her fever pattern white count has normalized 4patient currently being treated with the cefepime Vanco and Eraxis in view of clinical improvement and while waiting for the culture to finalize Dictation was produced using [employer] dictation software. please excuse any grammatical, word or spelling errors. Time with Patient: Less than 30
--- NOTE | 2025-03-07 07:36 | P.PN ---
Subjective This is a pleasant 54 years old female who was recently diagnosed with bullous pemphigoid 3 months ago when she is sent from this facility to [facility], she had a biopsy followed by treatment with doxycycline and taper prednisone over 3 weeks. Also she has extensive long history of CHF and seizure disorder. She was previously in the ICU for severe sepsis. Now presents because of generalized weakness. Patient states she went and fell today while she was trying to get up to go to the restroom she found a green chair on her way she was too weak to move with so she fell on her buttocks she could not get up as usual so she called the family who helped her and called EMS. Patient stayed on the floor for about 25 minutes as she explains. Denies any abdominal pain vomiting or diarrhea Denies dysuria urgency but states she has not been since yesterday and she has been drinking a lot of water for this reason Denies chest pain or dyspnea or coughing. No headache dizziness She is a known case of previous stroke and severe left hemiparesis, patient states it is worse than before this time. Also there was some concern from some slurred speech but no double vision. Patient complains from feeling swollen in her legs She has extensive bullous disease, majority of them are ruptured throughout her trunk and extremities and there is surrounding with erythema more extensive edema in the lower extremities bilaterally. However there is no purulent discharge. 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 Noriega neurologist is Dr. quiroz Patient with no fever blood pressure slightly on the low side but patient is symptomatic Blood pressure is fluctuation slightly on the low side Hemoglobin 10 WBC normal 8.6. Rest of labs unremarkable including electrolytes proBNP 1740 CT of the head and neck showing moderate stenosis of bilateral internal carotid arteries CT of the brain showing remote right large MCA territory infarct with encephalomalacia and remote left frontal infarct with encephalomalacia and bilateral cerebellar encephalomalacia Chest x-ray showing mild interstitial prominence may be bronchitis rule out mild pulmonary vascular congestion 02/21 Patient awake alert She looks hypovolemic with positive orthostatic vitals, yesterday we will give her a bolus of 500 cc. Albumin dropped from 2.7 down to 2.0. Patient has slightly worse leg swelling. She has multiple friable and ruptured bullae on the trunk and extremities with mild erythema surrounding these bullae especially in the lower extremities. These are chronic for the last 3 months diagnosed with bullous pemphigoid. Patient states that she took the steroids and that did not help much. She denies chest pain or dyspnea. No abdominal pain or vomiting. Patient currently not on antibiotics per ID team recommendation to keep monitoring while off antibiotics. No fever. Patient was on doxycycline for her bullous lesions at [facility] not sure if she needed for now, keep holding doxycycline. Cardiology is going to evaluate the patient. Neurology service also on the case however patient has chronic hemiplegia, and this morning she is not sure if it is left hemiplegia is at baseline or worse, however is severe and does not make much difference. No slurred speech no blurry vision. 02/22 Patient is looks tired lethargic Kirlin in bed and was shivering in the morning and developing fever also she is tachycardic and blood pressure is soft No chest pain or abdominal pain Still has erythema and swelling of both lower extremities suspected secondary to cellulitis, MRSA suspected and currently she is on IV vancomycin with infectious disease team recommendation She has good urine output and creatinine within the reference range. We give her a bolus of albumin given her hypoalbuminemia also if blood pressure remains low may consider a bolus of normal saline later on Midodrine was prescribed on admission as needed for hypotension but was not given by staff despite low blood pressure therefore we are going to switch it to standing dose Monitor labs and electrolytes and vitals closely 02/23 Patient yesterday was found unresponsive on the floor and there was foam in her mouth A team was called Patient got intubated and placed on mechanical ventilation transferred to the ICU. Patient currently intubated and sedated. Yesterday patient was hypotensive and tachycardic and altered mental status. This morning required Levophed 02/23 Patient remains in the ICU intubated and sedated, PEEP is 5 improved Female family member at bedside. Patient earlier was able to work She opened eyes and tried to communicate and she could recognize the family member, she was anxious as per family Patient required small dose of pressors earlier Continue on same antibiotics as per infectious disease team Off IV fluid Echocardiogram showed ejection fraction of 25 to 30% Increased left ventricular mass with very severe LV dysfunction Sputum culture growing Staph aureus pansensitive he Patient's rash of the lower extremity is significantly improved Discussed the case with pulmonary team 03/04 Resume the care of the patient today Patient remains in the ICU, she remains intubated on mechanical ventilation, currently this morning she is off sedation, she opens eyes spontaneously and to verbal commands she follows commands. She is not getting any pressors, currently getting D5W at 50 mL/h Also patient on broad-spectrum antibiotics of Eraxis, cefepime and IV vancomycin Repeat chest x-ray this morning showing significant improvement in her bilateral consolidation and pulmonary edema since To the ICU Pulmonary team are trying to continue with of sedation for possible extubation today 03/05 Patient is s/p extubation yesterday. Today she is fully awake oriented able to communicate, she follows command. She does not look in distress. She has mild hoarseness of voice which is expected. Also she will be tested for her ability to tolerate diet and dysphagia No chest pain no abdominal pain She still has fever around 100. She remains on antibiotic IV vancomycin and cefepime and Eraxis and ID team following closely Patient can be moved out of the ICU once cleared by critical care team 03/06 Patient still have fever spikes around 100 degree. She remains on broad- spectrum antibiotics with IV vancomycin, cefepime and Eraxis Multiple skin lesions very top and healed nicely. No chest pain or dyspnea or diarrhea. Patient has not started eating yet, she needs to pass swallow evaluation which is pending now She developed few seconds of nonsustained V. tach, also there was suspicious for torsade the point however QTc is 421 this morning on EKG Potassium 3.7 been replaced Monitor magnesium level as well 03/07 No events overnight Sleep fairly well this morning Denies any other new complaint She has difficult peripheral IV line placement, therefore we Central line for now. Patient remains in the ICU as MedSurg overflow to select unit She has been having fever continuously however over the last 24 to 48 hours she remains afebrile Vitals are stable WBC and hemoglobin stable as well as BMP is unremarkable Will ask for PT/OT evaluation as part of the discharge plan Patient probably will need rehab upon discharge Remains on IV antibiotics for now Objective - Vital Signs Vital signs: Vital Signs Temp 98.5 F 03/07/25 04:00 Pulse 109 H 03/07/25 04:00 Resp 16 03/07/25 04:00 BP 104/54 03/07/25 04:00 Pulse Ox 96 03/07/25 04:00 FiO2 35 03/04/25 09:19 Intake & Output 0703/07/25 03/07/25 18:59 06:59 18:59 Intake Total 832 370 Output Total 1585 800 Balance -753 -430 Weight 54.7 kg 54.6 kg Intake: IV 182 120 0.9 Sodium Chloride 120 20 Arterial Line 12 Cefepime 2 gm In Sodium 100 Chloride 0.9% 100 ml @ 25 mls/hr IVPB Q8H [facility] Rx#: [id number] Dextrose 5% in Water 1, 50 000 ml @ 50 mls/hr IV . Q20H [facility] Rx#:[id number] Intake, IV Titration 650 250 Amount Anidulafungin 100 mg In 100 Sodium Chloride 0.9% 100 ml @ 84 mls/hr IVPB DAILY [facility] Rx#:[id number] Cefepime 2 gm In Sodium 100 Chloride 0.9% 100 ml @ 25 mls/hr IVPB Q8H [facility] Rx#: [id number] Magnesium Sulfate-D5w Pmx 100 1 gm In Dextrose/Water 1 100ml.bag @ 100 mls/hr IVPB [facility] Rx#: [id number] Potassium Chloride 10 meq 100 In Water For Injection 1 100ml.bag @ 100 mls/hr IVPB Q1H [facility] Rx#: [id number] Vancomycin 1,250 mg In 250 250 Sodium Chloride 0.9% 250 ml @ 125 mls/hr IVPB Q12H [facility] Rx#:[id number] Output: Urine 1585 800 Other: Voiding Method Indwelling Catheter Indwelling Catheter ABP, PAP, CO, CI - Last Documented Arterial Blood Pressure 90/74 - Exam GENERAL: The patient is awake alert and oriented x 3, not in distress. HEENT: Pupils are round and equally reacting to light. EOMI. No scleral icterus. No conjunctival pallor. Normocephalic, atraumatic. No pharyngeal erythema. No thyromegaly. CARDIOVASCULAR: S1 and S2 present. No murmurs, rubs, or gallops. PULMONARY: Chest is clear to auscultation, no wheezing , no crackles. ABDOMEN: Soft, nontender, nondistended, normoactive bowel sounds. No palpable organomegaly. MUSCULOSKELETAL: No joint swelling or deformity. EXTREMITIES: No cyanosis, clubbing, or pedal edema. -Multiple eroded bullae and friable bullae with surrounding erythema throughout trunk and extremities ( bullous pemphigoid ), significantly improved and the almost dried up -NEUROLOGICAL: Gross neurological examination did not reveal any focal deficits. sever left hemiparesis (old per pt) SKIN: No rashes. no petechiae. - Labs CBC & Chem 7: 03/06/25 05:42 03/06/25 11:39 Labs: Abnormal Lab Results - Last 24 Hours (Table) 03/06/25 03/06/25 Range/Units 11:27 23:13 POC Glucose (mg/dL) 113 H 123 H (70-110) mg/dL Assessment and Plan Assessment: seizure disorder Severe sepsis seizure disorder Acute hypoxic respiratory failure s/p intubation/extubated on 03/04 Bilateral lower extremity cellulitis thought secondary to MRSA nonsustained V. tach Hypotension secondary to above, improved Worsening weakness on the left side associated with fall without syncope and transient slurred speech and some swallowing difficulty, rule out new stroke or worsening stroke Bullous pemphigoid with multiple eroded and friable bullae throughout the trunk and extremities with surrounding erythema on doxycycline and prednisone previously Cardiomyopathy with ejection fraction 35% Coronary artery disease History of PE History of stroke with persistent hemiplegia Moderate bilateral internal carotid artery stenosis Seizure disorder with history of breakthrough seizure Generalized weakness Plan: Patient is s/p extubation Follow-up swallow evaluation Monitor potassium to keep level above 4 and magnesium keep level above 2 Pulmonary/critical care team consult Continue with IV vancomycin and f IV cefepime and Eraxis per ID team 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 Continue same treatment. Continue with symptomatic treatment. Resume home medication. Monitor labs and vitals. DVT and GI prophylaxis. Further recommendations as per clinical course of the patient DVT prophylaxis: Eliquis GI Prophylaxis: Pepcid PT/OT: Pending Prognosis is guarded
[2025-03-07] MEDS: ATORVASTATIN 40 MG TAB PO SCH (09:47)
--- NOTE | 2025-03-07 10:01 | P.PN ---
Subjective Progress Note Date: 03/07/25 Seen today on 03/02/2025, patient remains in the ICU intubated mechanically ventilated on assist-control rate of 20 tidal volume 400 FiO2 40% PEEP of 5 ABG showed a pO2 of 128 pCO2 43 pH of 7.47 has FiO2 was cut down to 35%. Last night the patient had a Tmax of 102, remains on antibiotics as per infectious disease including vancomycin and cefepime. Patient is on propofol at 35 mg/kg/min she is requiring norepinephrine at 0.07 mcg/kg/min. Patient was initially intubated on 02/22 extubated on 02/26 reintubated on 02/27. Her mental status remains marginal at best, patient follows simple instructions but she does not seem to open her eyes, and she does not maintain any eye contact. WBC count today is 8.4 hemoglobin 7.3 platelets are normal ABG as noted earlier electrolytes are normal except for low potassium of 3.2, renal profile is normal chest x-ray showed minimal multifocal airspace opacities with left lower lobe atelectasis and possibly a small tiny left pleural effusion. Patient was seen today on 03/03/2025, remains in the ICU, intubated and mechanically ventilated, on assist-control rate of 20 tidal volume 400 FiO2 35% PEEP of 5 ABG showed a pO2 of 107 pCO2 39 pH of 7.49. Propofol is presently on hold patient is on IV fluid 0.9 at 50 cc/h she is also receiving vital HP at 15 mL/h. Her sputum has been positive for MSSA her urine is positive for E. coli. Her antibiotics are being addressed by infectious disease on the case. WBC count is 8.1 hemoglobin 7.2 platelets are 302 basic metabolic profile is normal, renal profile is normal. Blood sugar is 134. Considering the patient is awake and at least she is opening her eyes although she does not maintain a good eye contact, this is the best she has been neurologically, and I will go ahead and give the patient another trial of weaning utilizing pressure support of 12 and CPAP. And will decide whether to taper down her pressure support or to proceed to weaning and extubation sometime later today. If not we will try the same thing again tomorrow. Chest x-ray today showed minimal multifocal airspace opacities. The patient is seen today March 04, 2025 in follow-up in the intensive care unit. She remains intubated on the mechanical ventilator currently on assist-control mode at a rate of 20, tidal volume 400, FiO2 35% and a PEEP of 5. Morning blood gases reveal a PO2 of 111, pCO2 41 and pH of 7.46. She remains off sedation. She is more awake and alert. Following simple commands. She has D5W at 50 mL/h. She is being nourished with vital HP at 58 mL/h which is her goal. Normal saline at keep vein open. White count 8.6. Hemoglobin 7.3. Platelets 298. Sodium 136. Potassium 3.8. Bicarb 28. BUN 17. Creatinine 0.55. Glucose 135. Follow-up sputum culture revealed no growth. Blood cultures revealed no growth. She remains on cefepime and vancomycin. Anticoagulated with Eliquis. Chest x-ray reveals no focal consolidation. The patient is seen today March 05, 2025 in follow-up in the intensive care unit. She was extubated yesterday. She is currently sitting up in bed. Awake and alert in no acute distress. Maintaining good O2 saturations in the 90s on 2 L/min per nasal cannula. She is receiving D5W at 50 mL/h. Normal saline at 20 mL/h. She remains on vancomycin and cefepime. Anticoagulated with Eliquis. Remains on Eraxis. Chest x-ray reveals interval removal of endotracheal tube and NG tube. Stable left IJ central venous catheter in place. Cardiomegaly with some left midlung patchy opacity. White count 9.7. Hemoglobin 7.5. Platelets 344. Sodium 135. Potassium 3.7. Bicarb 28. BUN 13. Creatinine 0.43. Glucose 102. Follow-up blood culture revealed no growth. Sputum culture revealed no growth. Patient is seen today March 06, 2025 in follow-up in the intensive care unit. She is currently sitting up in bed. Awake and alert in no acute distress. Maintaining O2 saturation in the 90s on 2 L/min per nasal cannula. She has D5W at 50 mL/h. She is continued on Eraxis, cefepime and vancomycin. Chest x-ray continues to show cardiomegaly with pulmonary vascular congestion. Left patchy basilar airspace opacity. Initial blood cultures were positive for MSSA. Urine culture positive for E. coli. Follow-up blood cultures revealed no growth. Sputum culture revealed no growth. White count 8.6. Hemoglobin 7.8. Platelets 416. Sodium 136. Potassium 3.7. Bicarb 24. BUN 11. Creatinine 0.54. Glucose 98. She is afebrile. Hemodynamically stable. She is continued on prednisone. Anticoagulated with Eliquis. Continued on her seizure medications. The patient is seen today March 07, 2025 in follow-up in the intensive care unit. She is a 3 S. overflow patient. She is awake and alert in no acute distress. Resting comfortably in bed. Maintaining O2 saturations in the 90s on 2 L/min per nasal cannula. Recent sputum culture revealed no growth. Blood cultures revealed no growth. Magnesium level 2.1. She remains on Eraxis, cefepime and vancomycin. Anticoagulated with Eliquis. Objective - Vital Signs Vital signs: Vital Signs Temp 98.5 F 03/07/25 04:00 Pulse 109 H 03/07/25 04:00 Resp 16 03/07/25 04:00 BP 104/54 03/07/25 04:00 Pulse Ox 98 03/07/25 08:36 FiO2 35 03/04/25 09:19 Intake & Output 03/06/25 03/07/25 03/07/25 18:59 06:59 18:59 Intake Total 832 370 Output Total 1585 800 Balance -753 -430 Weight 54.7 kg 54.6 kg Intake: IV 182 120 0.9 Sodium Chloride 120 20 Arterial Line 12 Cefepime 2 gm In Sodium 100 Chloride 0.9% 100 ml @ 25 mls/hr IVPB Q8H [facility] Rx#: [id number] Dextrose 5% in Water 1, 50 000 ml @ 50 mls/hr IV . Q20H [facility] Rx#:[id number] Intake, IV Titration 650 250 Amount Anidulafungin 100 mg In 100 Sodium Chloride 0.9% 100 ml @ 84 mls/hr IVPB DAILY [facility] Rx#:[id number] Cefepime 2 gm In Sodium 100 Chloride 0.9% 100 ml @ 25 mls/hr IVPB Q8H [facility] Rx#: [id number] Magnesium Sulfate-D5w Pmx 100 1 gm In Dextrose/Water 1 100ml.bag @ 100 mls/hr IVPB [facility]CE [facility] Rx#: [id number] Potassium Chloride 10 meq 100 In Water For Injection 1 100ml.bag @ 100 mls/hr IVPB Q1H [facility] Rx#: [id number] Vancomycin 1,250 mg In 250 250 Sodium Chloride 0.9% 250 ml @ 125 mls/hr IVPB Q12H [facility] Rx#:[id number] Output: Urine 1585 800 Other: Voiding Method Indwelling Catheter Indwelling Catheter Indwelling Catheter ABP, PAP, CO, CI - Last Documented Arterial Blood Pressure 90/74 - Exam GENERAL EXAM: Alert, thin, 54-year-old female, resting in bed, on 2 L nasal cannula, in no apparent distress. HEAD: Normocephalic. EYES: Normal reaction of pupils, equal size. NOSE: Clear with pink turbinates. THROAT: No erythema or exudates. NECK: No masses, no JVD. CHEST: No chest wall deformity. LUNGS: Equal air entry with few scattered rhonchi, crackles in the posterior bases. CVS: S1 and S2 normal with no audible murmur, regular rhythm. ABDOMEN: No hepatosplenomegaly, normal bowel sounds, no guarding or rigidity. SPINE: No scoliosis or deformity SKIN: Multiple healing skin lesions CENTRAL NERVOUS SYSTEM: No focal deficits, tone is normal in all 4 extremities. EXTREMITIES: There is no peripheral edema. No clubbing, no cyanosis. Peripheral pulses are intact. - Labs CBC & Chem 7: 03/06/25 05:42 03/06/25 11:39 Labs: Abnormal Lab Results - Last 24 Hours (Table) 03/06/25 03/06/25 Range/Units 11:27 23:13 POC Glucose (mg/dL) 113 H 123 H (70-110) mg/dL Assessment and Plan Assessment: Acute hypoxic respiratory failure secondary to acute pulmonary edema Acute systolic congestive heart failure ejection fraction of 25 to 30% Left lung opacification noted on 02/27/2025, requiring bronchoscopy and extraction of mucous plug noted in the left upper lobe., Resolved Failed extubation, patient lasted almost 24 hours off mechanical ventilation. Had to be reintubated on 02/27/2025. Extubated again on 03/04/2025. Currently on o xygen at 2 L/min per nasal Multifocal opacities noted on previous chest x-ray, suggestive of MSSA pneumonia with positive sputum cultures for MSSA. Follow-up cultures showed no growth. 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 yesterday Titrate down/off the FiO2 as tolerated Increase her activity as tolerated We will continue to follow I have personally seen and examined the patient, performed the documentation and the assessment and plan as written. Number of minutes spent on the visit: 10 Dictation was produced using [employer] formerly [employer] dictation software. Please excuse any grammatical, word or spelling errors.
[2025-03-07 11:27] LABS: African American GFR (CKD) >90 (>60 ml/min/1.73 sqM); Non-African American GFR(CKD) >90 (>60 ml/min/1.73 sqM)
[2025-03-07] MEDS: VANCOMYCIN TROUGH DUE 1 EACH MISC MISCELLANE ONE (11:45)
--- NOTE | 2025-03-07 13:03 | P.PN ---
Subjective Progress Note Date: 03/07/25 The patient was seen this morning. She continues to be intubated on mechanical ventilation she continues to be hemodynamically stable requiring norepinephrine but she is requiring less norepinephrine compared to before. Urine output continues to be marginal. She is on Lasix IV at 40 mg twice daily. She is not on any cardiomyopathy medications because of the hemodynamical instability and requiring norepinephrine. The echo showed an EF between 25 to 30%. The physical examination is remarkable for intubated patient on mechanical ventilation with diminished breathing sounds bilaterally and regular rate and rhythm. February 26, 2025 The patient was seen and evaluated this morning. She continues to be intubated. She is still on Lasix IV. The pressure still low requiring norepinephrine but we are coming down with a dose. The chest x-ray was reviewed this morning and seems to be overall better in terms of fluid overload. We potentially can come down with a dose of IV Lasix and possible wean the patient off from norepinephrine. The physical examination is remarkable for regular rhythm with diminished breathing sounds bilaterally and mild bilateral lower extremity edema and skin changes noted. She is on oral anticoagulation. February 27, 2025 The patient was seen and evaluated this morning. She was extubated yesterday and then she reintubated again because she developed hypoxic respiratory failure. The chest x-ray showed complete opacification of the left lung. She is in process of having possible bronchoscopy. Hemodynamically she remains unstable requiring small dose of norepinephrine. The physical examination is remarkable for regular rate and rhythm with a systolic murmur at the right and left upper sternal border and wheezing was noted also. February 28, 2025 The patient was seen and evaluated this morning. She underwent bronchoscopy yesterday. The chest x-ray today appears to be better. The complete opacification of the left lung has resolved completely. Currently she is intubated on mechanical ventilation. She is off norepinephrine at this point and hemodynamically stable and maintaining normal sinus mechanism. Physical examination is remarkable for regular rhythm with a systolic murmur at the right upper sternal border and clear breathing sounds bilaterally and no edema was noted in the lower extremities with extensive skin rash. March 01, 2025 Intubed and sedated. She is back on levophed. + fever, cxr ok March 02, 2025 Pt seen in ICU. She remains intubated, off sedation she does follow commands per nursing. She is still on levophed. March 03, 2025 Patient seen in ICU. Remains intubated, off sedation, following simple commands. Hemoglobin 7.2, creatinine 0.44. She had run of VT 120 beats overnight. Off levophed since overnight. 03/04/2025 Seen in ICU. Will get sedation vacation today and breathing trial. No further episodes of sustained or nonsustained VT noticed over last 24 hours. 03/05/2025 Seen in ICU. Was extubated yesterday. Recovering from bolus pemphigoid , skin lesions are healing well. Denies any chest pain chest pressure. Shortness of breath is improving. 03/06/2025 Seen and examined at bedside. Yesterday night she had a event with respiratory status and hypoxia. At that time she had a 20 beat NSVT run. Since then she h as not had any further NSVT's. Sinus tachycardia is a baseline rhythm. 03/07/2025 Seen and examined at bedside this a.m. No further events of NSVT noticed on telemetry, sinus rhythm with intermittent sinus tachycardia. Appears euvolemic. Assessment Acute hypoxic respiratory failure Severe cardiomyopathy Heart failure with reduced ejection fraction Frequent PVCs and NSVT's Paroxysmal atrial fibrillation, Sinus rhythm at this point Multiple comorbid conditions including anemia Plan: Increase metoprolol to 25 twice daily. Continue Eliquis 5 twice daily, amiodarone 200 daily, Lipitor 40 mg daily, Continue oral anticoagulation and amiodarone Monitor the kidney function and electrolytes and hemoglobin Overall prognosis is guarded Apparently patient had some provide reaction with IV. Will avoid using Lasix for diuresis. Consider other diuretic regimen for her when needed. Currently she is euvolemic. She can be transferred out of ICU from cardiovascular standpoint Objective - Vital Signs Vital signs: Vital Signs Temp 98.0 F 03/07/25 12:00 Pulse 83 03/07/25 12:00 Resp 16 03/07/25 12:00 BP 108/53 03/07/25 12:00 Pulse Ox 96 03/07/25 12:00 FiO2 35 03/04/25 09:19 Intake & Output 03/06/25 03/07/25 03/07/25 18:59 06:59 18:59 Intake Total 832 370 360 Output Total 1585 800 350 Balance -753 -430 10 Weight 54.7 kg 54.6 kg Intake: IV 182 120 110 0.9 Sodium Chloride 120 20 10 Arterial Line 12 Cefepime 2 gm In Sodium 100 100 Chloride 0.9% 100 ml @ 25 mls/hr IVPB Q8H [facility] Rx#: [id number] Dextrose 5% in Water 1, 50 000 ml @ 50 mls/hr IV . Q20H [facility] Rx#:[id number] Intake, IV Titration 650 250 250 Amount Anidulafungin 100 mg In 100 Sodium Chloride 0.9% 100 ml @ 84 mls/hr IVPB DAILY [facility] Rx#:[id number] Cefepime 2 gm In Sodium 100 Chloride 0.9% 100 ml @ 25 mls/hr IVPB Q8H [facility] Rx#: [id number] Magnesium Sulfate-D5w Pmx 100 1 gm In Dextrose/Water 1 100ml.bag @ 100 mls/hr IVPB [facility] Rx#: [id number] Potassium Chloride 10 meq 100 In Water For Injection 1 100ml.bag @ 100 mls/hr IVPB Q1H [facility] Rx#: [id number] Vancomycin 1,250 mg In 250 250 250 Sodium Chloride 0.9% 250 ml @ 125 mls/hr IVPB Q12H [facility] Rx#:[id number] Output: Urine 1585 800 350 Other: Voiding Method Indwelling Catheter Indwelling Catheter Indwelling Catheter ABP, PAP, CO, CI - Last Documented Arterial Blood Pressure 90/74 - Labs CBC & Chem 7: 03/06/25 05:42 03/07/25 10:31 Labs: Abnormal Lab Results - Last 24 Hours (Table) 03/06/25 Range/Units 23:13 POC Glucose (mg/dL) 123 H (70-110) mg/dL
[2025-03-07] MEDS: VANCOMYCIN 1,000 MG in SODIUM CHLORIDE 0.9% 250 ML IVPB SCH (13:07)
[2025-03-07 17:25] LABS: Glucose,Whole Blood 113 mg/dL (70-110)
[2025-03-08 05:42] LABS: Glucose,Whole Blood 92 mg/dL (70-110)
[2025-03-08 09:07] LABS: Basophils # (A) 0.03 10*3/uL (0.00-0.10); Basophils % (A) 0.4 %; Eosinophils # (A) 1.73 10*3/uL (0.04-0.35); Eosinophils % (A) 23.2 %; HCT 26.4 % (37.2-46.3); HGB 7.7 g/dL (12.0-15.0); Lymphocytes # (A) 1.12 10*3/uL (0.90-5.00); Lymphocytes % (A) 15.0 %; MCH 26.7 pg (27.0-32.0); MCHC 29.2 g/dL (32.0-37.0); MCV 91.7 fL (80.0-97.0); Monocytes # (A) 0.45 10*3/uL (0.20-1.00); Monocytes % (A) 6.0 %; Neutrophils # (A) 4.10 10*3/uL (1.80-7.70); Neutrophils % (A) 55.0 %; Platelet Count 444 10*3/uL (140-440); RBC 2.88 10*6/uL (4.10-5.20); RDW 17.1 % (11.5-14.5); WBC 7.46 10*3/uL (4.50-10.00)
--- NOTE | 2025-03-08 09:13 | P.PN ---
Subjective This is a pleasant 54 years old female who was recently diagnosed with bullous pemphigoid 3 months ago when she is sent from this facility to [facility], she had a biopsy followed by treatment with doxycycline and taper prednisone over 3 weeks. Also she has extensive long history of CHF and seizure disorder. She was previously in the ICU for severe sepsis. Now presents because of generalized weakness. Patient states she went and fell today while she was trying to get up to go to the restroom she found a green chair on her way she was too weak to move with so she fell on her buttocks she could not get up as usual so she called the family who helped her and called EMS. Patient stayed on the floor for about 25 minutes as she explains. Denies any abdominal pain vomiting or diarrhea Denies dysuria urgency but states she has not been since yesterday and she has been drinking a lot of water for this reason Denies chest pain or dyspnea or coughing. No headache dizziness She is a known case of previous stroke and severe left hemiparesis, patient states it is worse than before this time. Also there was some concern from some slurred speech but no double vision. Patient complains from feeling swollen in her legs She has extensive bullous disease, majority of them are ruptured throughout her trunk and extremities and there is surrounding with erythema more extensive edema in the lower extremities bilaterally. However there is no purulent discharge. 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 Noriega neurologist is Dr. quiroz Patient with no fever blood pressure slightly on the low side but patient is symptomatic Blood pressure is fluctuation slightly on the low side Hemoglobin 10 WBC normal 8.6. Rest of labs unremarkable including electrolytes proBNP 1740 CT of the head and neck showing moderate stenosis of bilateral internal carotid arteries CT of the brain showing remote right large MCA territory infarct with encephalomalacia and remote left frontal infarct with encephalomalacia and bilateral cerebellar encephalomalacia Chest x-ray showing mild interstitial prominence may be bronchitis rule out mild pulmonary vascular congestion 02/21 Patient awake alert She looks hypovolemic with positive orthostatic vitals, yesterday we will give her a bolus of 500 cc. Albumin dropped from 2.7 down to 2.0. Patient has slightly worse leg swelling. She has multiple friable and ruptured bullae on the trunk and extremities with mild erythema surrounding these bullae especially in the lower extremities. These are chronic for the last 3 months diagnosed with bullous pemphigoid. Patient states that she took the steroids and that did not help much. She denies chest pain or dyspnea. No abdominal pain or vomiting. Patient currently not on antibiotics per ID team recommendation to keep monitoring while off antibiotics. No fever. Patient was on doxycycline for her bullous lesions at [facility] not sure if she needed for now, keep holding doxycycline. Cardiology is going to evaluate the patient. Neurology service also on the case however patient has chronic hemiplegia, and this morning she is not sure if it is left hemiplegia is at baseline or worse, however is severe and does not make much difference. No slurred speech no blurry vision. 02/22 Patient is looks tired lethargic Kirlin in bed and was shivering in the morning and developing fever also she is tachycardic and blood pressure is soft No chest pain or abdominal pain Still has erythema and swelling of both lower extremities suspected secondary to cellulitis, MRSA suspected and currently she is on IV vancomycin with infectious disease team recommendation She has good urine output and creatinine within the reference range. We give her a bolus of albumin given her hypoalbuminemia also if blood pressure remains low may consider a bolus of normal saline later on Midodrine was prescribed on admission as needed for hypotension but was not given by staff despite low blood pressure therefore we are going to switch it to standing dose Monitor labs and electrolytes and vitals closely 02/23 Patient yesterday was found unresponsive on the floor and there was foam in her mouth A team was called Patient got intubated and placed on mechanical ventilation transferred to the ICU. Patient currently intubated and sedated. Yesterday patient was hypotensive and tachycardic and altered mental status. This morning required Levophed 02/23 Patient remains in the ICU intubated and sedated, PEEP is 5 improved Female family member at bedside. Patient earlier was able to work She opened eyes and tried to communicate and she could recognize the family member, she was anxious as per family Patient required small dose of pressors earlier Continue on same antibiotics as per infectious disease team Off IV fluid Echocardiogram showed ejection fraction of 25 to 30% Increased left ventricular mass with very severe LV dysfunction Sputum culture growing Staph aureus pansensitive he Patient's rash of the lower extremity is significantly improved Discussed the case with pulmonary team 03/04 Resume the care of the patient today Patient remains in the ICU, she remains intubated on mechanical ventilation, currently this morning she is off sedation, she opens eyes spontaneously and to verbal commands she follows commands. She is not getting any pressors, currently getting D5W at 50 mL/h Also patient on broad-spectrum antibiotics of Eraxis, cefepime and IV vancomycin Repeat chest x-ray this morning showing significant improvement in her bilateral consolidation and pulmonary edema since To the ICU Pulmonary team are trying to continue with of sedation for possible extubation today 03/05 Patient is s/p extubation yesterday. Today she is fully awake oriented able to communicate, she follows command. She does not look in distress. She has mild hoarseness of voice which is expected. Also she will be tested for her ability to tolerate diet and dysphagia No chest pain no abdominal pain She still has fever around 100. She remains on antibiotic IV vancomycin and cefepime and Eraxis and ID team following closely Patient can be moved out of the ICU once cleared by critical care team 03/06 Patient still have fever spikes around 100 degree. She remains on broad- spectrum antibiotics with IV vancomycin, cefepime and Eraxis Multiple skin lesions very top and healed nicely. No chest pain or dyspnea or diarrhea. Patient has not started eating yet, she needs to pass swallow evaluation which is pending now She developed few seconds of nonsustained V. tach, also there was suspicious for torsade the point however QTc is 421 this morning on EKG Potassium 3.7 been replaced Monitor magnesium level as well 03/07 No events overnight Sleep fairly well this morning Denies any other new complaint She has difficult peripheral IV line placement, therefore we [facility] for now. Patient remains in the ICU as MedSurg overflow to select unit She has been having fever continuously however over the last 24 to 48 hours she remains afebrile Vitals are stable WBC and hemoglobin stable as well as BMP is unremarkable Will ask for PT/OT evaluation as part of the discharge plan Patient probably will need rehab upon discharge Remains on IV antibiotics for now 03/08 Patient is more confused today this morning. She is calm does not look in distress. She has occasional cough and itching in the left upper extremity from his skin lesions She is still mildly tachycardic she still has low-grade fever 99.9. Blood pressure stable and saturation of oxygen is acceptable Monitor labs She remains on antibiotic with IV vancomycin and cefepime and Eraxis Objective - Vital Signs Vital signs: Vital Signs Temp 99.1 F 03/08/25 04:00 Pulse 113 H 03/08/25 04:00 Resp 18 03/08/25 04:00 BP 112/62 03/08/25 04:00 Pulse Ox 96 03/08/25 04:00 FiO2 35 03/04/25 09:19 Intake & Output 03/07/25 03/08/25 03/08/25 18:59 06:59 18:59 Intake Total 720 30 Output Total 600 700 Balance 120 -670 Weight 54.5 kg Intake: IV 220 30 0.9 Sodium Chloride 20 Cefepime 2 gm In Sodium 200 Chloride 0.9% 100 ml @ 25 mls/hr IVPB Q8H [facility] Rx#: [id number] Invasive Line 7 30 Intake, IV Titration 500 Amount Vancomycin 1,250 mg In 500 Sodium Chloride 0.9% 250 ml @ 125 mls/hr IVPB Q12H [facility] Rx#:[id number] Output: Urine 600 700 Other: Voiding Method Indwelling Catheter Indwelling Catheter ABP, PAP, CO, CI - Last Documented Arterial Blood Pressure 90/74 - Exam GENERAL: The patient is awake alert and oriented x 3, not in distress. HEENT: Pupils are round and equally reacting to light. EOMI. No scleral icterus. No conjunctival pallor. Normocephalic, atraumatic. No pharyngeal erythema. No thyromegaly. CARDIOVASCULAR: S1 and S2 present. No murmurs, rubs, or gallops. PULMONARY: Chest is clear to auscultation, no wheezing , no crackles. ABDOMEN: Soft, nontender, nondistended, normoactive bowel sounds. No palpable organomegaly. MUSCULOSKELETAL: No joint swelling or deformity. EXTREMITIES: No cyanosis, clubbing, or pedal edema. -Multiple eroded bullae and friable bullae with surrounding erythema throughout trunk and extremities ( bullous pemphigoid ), significantly improved and the almost dried up -NEUROLOGICAL: Gross neurological examination did not reveal any focal deficits. sever left hemiparesis (old per pt) SKIN: No rashes. no petechiae. - Labs CBC & Chem 7: 03/08/25 08:29 03/07/25 10:31 Labs: Abnormal Lab Results - Last 24 Hours (Table) 03/07/25 03/08/25 Range/Units 17:24 08:29 RBC 2.88 L (4.10-5.20) 10*6/uL Hgb 7.7 L (12.0-15.0) g/dL Hct 26.4 L (37.2-46.3) % MCH 26.7 L (27.0-32.0) pg MCHC 29.2 L (32.0-37.0) g/dL Plt Count 444 H (140-440) 10*3/uL POC Glucose (mg/dL) 113 H (70-110) mg/dL Microbiology - Last 24 Hours (Table) 03/02/25 13:20 Blood Culture - Final Blood Assessment and Plan Assessment: seizure disorder Severe sepsis seizure disorder Acute hypoxic respiratory failure s/p intubation/extubated on 03/04 Bilateral lower extremity cellulitis thought secondary to MRSA nonsustained V. tach Hypotension secondary to above, improved Worsening weakness on the left side associated with fall without syncope and transient slurred speech and some swallowing difficulty, rule out new stroke or worsening stroke Bullous pemphigoid with multiple eroded and friable bullae throughout the trunk and extremities with surrounding erythema on doxycycline and prednisone previously Cardiomyopathy with ejection fraction 35% Coronary artery disease History of PE History of stroke with persistent hemiplegia Moderate bilateral internal carotid artery stenosis Seizure disorder with history of breakthrough seizure Generalized weakness Plan: Patient is s/p extubation Follow-up swallow evaluation Monitor potassium to keep level above 4 and magnesium keep level above 2 Pulmonary/critical care team consult Continue with IV vancomycin and f IV cefepime and Eraxis per ID team Patient follow-up with partner alliance manager as an outpatient for her bullous lesions Cardiology team consulted for her severe cardiomyopathy Wound team consult Neurology team consult, continue with current seizure medication neurologist, currently on Tegretol 200 mg gabapentin 600 mg Vimpat 50 mg and Keppra 1500 mg Labs and medication were reviewed.. Continue same treatment. Continue with symptomatic treatment. Resume home medication. Monitor labs and vitals. DVT and GI prophylaxis. Further recommendations as per clinical course of the patient DVT prophylaxis: Eliquis GI Prophylaxis: Pepcid PT/OT: Pending Prognosis is guarded
[2025-03-08 09:21] LABS: African American GFR (CKD) >90 (>60 ml/min/1.73 sqM); Anion Gap 9 mmol/L; Blood Urea Nitrogen 10 mg/dL (7-17); Calcium 8.7 mg/dL (8.4-10.2); Carbon Dioxide 23 mmol/L (22-30); Chloride 108 mmol/L (98-107); Glucose 89 mg/dL (74-99); Non-African American GFR(CKD) >90 (>60 ml/min/1.73 sqM); Potassium 3.4 mmol/L (3.5-5.1); Sodium 140 mmol/L (137-145)
[2025-03-08 11:59] LABS: Glucose,Whole Blood 86 mg/dL (70-110)
--- NOTE | 2025-03-08 14:39 | P.PN ---
Subjective Progress Note Date: 03/08/25 Seen today on 03/02/2025, patient remains in the ICU intubated mechanically ventilated on assist-control rate of 20 tidal volume 400 FiO2 40% PEEP of 5 ABG showed a pO2 of 128 pCO2 43 pH of 7.47 has FiO2 was cut down to 35%. Last night the patient had a Tmax of 102, remains on antibiotics as per infectious disease including vancomycin and cefepime. Patient is on propofol at 35 mg/kg/min she is requiring norepinephrine at 0.07 mcg/kg/min. Patient was initially intubated on 02/22 extubated on 02/26 reintubated on 02/27. Her mental status remains marginal at best, patient follows simple instructions but she does not seem to open her eyes, and she does not maintain any eye contact. WBC count today is 8.4 hemoglobin 7.3 platelets are normal ABG as noted earlier electrolytes are normal except for low potassium of 3.2, renal profile is normal chest x-ray showed minimal multifocal airspace opacities with left lower lobe atelectasis and possibly a small tiny left pleural effusion. Patient was seen today on 03/03/2025, remains in the ICU, intubated and mechanically ventilated, on assist-control rate of 20 tidal volume 400 FiO2 35% PEEP of 5 ABG showed a pO2 of 107 pCO2 39 pH of 7.49. Propofol is presently on hold patient is on IV fluid 0.9 at 50 cc/h she is also receiving vital HP at 15 mL/h. Her sputum has been positive for MSSA her urine is positive for E. coli. Her antibiotics are being addressed by infectious disease on the case. WBC count is 8.1 hemoglobin 7.2 platelets are 302 basic metabolic profile is normal, renal profile is normal. Blood sugar is 134. Considering the patient is awake and at least she is opening her eyes although she does not maintain a good eye contact, this is the best she has been neurologically, and I will go ahead and give the patient another trial of weaning utilizing pressure support of 12 and CPAP. And will decide whether to taper down her pressure support or to proceed to weaning and extubation sometime later today. If not we will try the same thing again tomorrow. Chest x-ray today showed minimal multifocal airspace opacities. The patient is seen today March 04, 2025 in follow-up in the intensive care unit. She remains intubated on the mechanical ventilator currently on assist-control mode at a rate of 20, tidal volume 400, FiO2 35% and a PEEP of 5. Morning blood gases reveal a PO2 of 111, pCO2 41 and pH of 7.46. She remains off sedation. She is more awake and alert. Following simple commands. She has D5W at 50 mL/h. She is being nourished with vital HP at 58 mL/h which is her goal. Normal saline at keep vein open. White count 8.6. Hemoglobin 7.3. Platelets 298. Sodium 136. Potassium 3.8. Bicarb 28. BUN 17. Creatinine 0.55. Glucose 135. Follow-up sputum culture revealed no growth. Blood cultures revealed no growth. She remains on cefepime and vancomycin. Anticoagulated with Eliquis. Chest x-ray reveals no focal consolidation. The patient is seen today March 05, 2025 in follow-up in the intensive care unit. She was extubated yesterday. She is currently sitting up in bed. Awake and alert in no acute distress. Maintaining good O2 saturations in the 90s on 2 L/min per nasal cannula. She is receiving D5W at 50 mL/h. Normal saline at 20 mL/h. She remains on vancomycin and cefepime. Anticoagulated with Eliquis. Remains on Eraxis. Chest x-ray reveals interval removal of endotracheal tube and NG tube. Stable left IJ central venous catheter in place. Cardiomegaly with some left midlung patchy opacity. White count 9.7. Hemoglobin 7.5. Platelets 344. Sodium 135. Potassium 3.7. Bicarb 28. BUN 13. Creatinine 0.43. Glucose 102. Follow-up blood culture revealed no growth. Sputum culture revealed no growth. Patient is seen today March 06, 2025 in follow-up in the intensive care unit. She is currently sitting up in bed. Awake and alert in no acute distress. Maintaining O2 saturation in the 90s on 2 L/min per nasal cannula. She has D5W at 50 mL/h. She is continued on Eraxis, cefepime and vancomycin. Chest x-ray continues to show cardiomegaly with pulmonary vascular congestion. Left patchy basilar airspace opacity. Initial blood cultures were positive for MSSA. Urine culture positive for E. coli. Follow-up blood cultures revealed no growth. Sputum culture revealed no growth. White count 8.6. Hemoglobin 7.8. Platelets 416. Sodium 136. Potassium 3.7. Bicarb 24. BUN 11. Creatinine 0.54. Glucose 98. She is afebrile. Hemodynamically stable. She is continued on prednisone. Anticoagulated with Eliquis. Continued on her seizure medications. The patient is seen today March 07, 2025 in follow-up in the intensive care unit. She is a 3 S. overflow patient. She is awake and alert in no acute distress. Resting comfortably in bed. Maintaining O2 saturations in the 90s on 2 L/min per nasal cannula. Recent sputum culture revealed no growth. Blood cultures revealed no growth. Magnesium level 2.1. She remains on Eraxis, cefepime and vancomycin. Anticoagulated with Eliquis. The patient is seen today March 08, 2025 in follow-up on the selective care unit. She was transferred out of the intensive care unit yesterday. She is a little less responsive today compared to yesterday. She is arousable. She is maintaining O2 saturations in the high 90s on room air oxygen. Somewhat febrile. Hemodynamically stable. Follow-up sputum culture revealed no growth. Blood culture revealed no growth. White count 7.4. Hemoglobin 7.7. Platelets 444. Sodium 140. Potassium 3.4. Bicarb 23. BUN 10. Creatinine 0.59. She remains on Eraxis, cefepime. Remains on amiodarone. Anticoagulated with Eliquis. Objective - Vital Signs Vital signs: Vital Signs Temp 99.7 F H 03/08/25 12:00 Pulse 80 03/08/25 14:00 Resp 18 03/08/25 14:00 BP 90/54 03/08/25 12:00 Pulse Ox 99 03/08/25 12:00 FiO2 35 03/04/25 09:19 Intake & Output 03/07/25 03/08/25 03/08/25 18:59 06:59 18:59 Intake Total 720 30 60 Output Total 600 700 475 Balance 120 670 415 Weight 54.5 kg 54.5 kg Intake: IV 220 30 60 0.9 Sodium Chloride 20 Cefepime 2 gm In Sodium 200 Chloride 0.9% 100 ml @ 25 mls/hr IVPB Q8H [facility] Rx#: [id number] Invasive Line 7 30 60 Intake, IV Titration 500 Amount Vancomycin 1,250 mg In 500 Sodium Chloride 0.9% 250 ml @ 125 mls/hr IVPB Q12H [facility] Rx#:[id number] Output: Urine 600 700 475 Other: Voiding Method Indwelling Catheter Indwelling Catheter Indwelling Catheter ABP, PAP, CO, CI - Last Documented Arterial Blood Pressure 90/74 - Exam GENERAL EXAM: Arousable, thin, 54-year-old female, resting in bed, on room air oxygen, in no apparent distress. HEAD: Normocephalic. EYES: Normal reaction of pupils, equal size. NOSE: Clear with pink turbinates. THROAT: No erythema or exudates. NECK: No masses, no JVD. CHEST: No chest wall deformity. LUNGS: Equal air entry with few scattered rhonchi, crackles in the posterior bases. CVS: S1 and S2 normal with no audible murmur, regular rhythm. ABDOMEN: No hepatosplenomegaly, normal bowel sounds, no guarding or rigidity. SPINE: No scoliosis or deformity SKIN: Multiple healing skin lesions CENTRAL NERVOUS SYSTEM: No focal deficits, tone is normal in all 4 extremities. EXTREMITIES: There is no peripheral edema. No clubbing, no cyanosis. Peripheral pulses are intact. - Labs CBC & Chem 7: 03/08/25 08:29 03/08/25 08:29 Labs: Abnormal Lab Results - Last 24 Hours (Table) 03/07/25 03/08/25 03/08/25 Range/Units 17:24 08:29 08:29 RBC 2.88 L (4.10-5.20) 10*6/uL Hgb 7.7 L (12.0-15.0) g/dL Hct 26.4 L (37.2-46.3) % MCH 26.7 L (27.0-32.0) pg MCHC 29.2 L (32.0-37.0) g/dL Plt Count 444 H (140-440) 10*3/uL Eosinophils # 1.73 H (0.04-0.35) 10*3/uL Potassium 3.4 L (3.5-5.1) mmol/L Chloride 108 H (98-107) mmol/L POC Glucose (mg/dL) 113 H (70-110) mg/dL Microbiology - Last 24 Hours (Table) 03/02/25 13:20 Blood Culture - Final Blood Assessment and Plan Assessment: Acute hypoxic respiratory failure secondary to acute pulmonary edema Acute systolic congestive heart failure ejection fraction of 25 to 30% Left lung opacification noted on 02/27/2025, requiring bronchoscopy and extraction of mucous plug noted in the left upper lobe., Resolved Failed extubation, patient lasted almost 24 hours off mechanical ventilation. Had to be reintubated on 02/27/2025. Extubated again on 03/04/2025. Currently on oxygen at 2 L/min per nasal Multifocal opacities noted on previous chest x-ray, suggestive of MSSA pneumonia with positive sputum cultures for MSSA. Follow-up cultures showed no growth. Follow-up chest x-ray shows improvement Bullous pemphigoid disease Paroxysmal atrial fibrillation, anticoagulated with Eliquis History of seizure disorder Chronic bilateral lower extremity cellulitis secondary to MRSA Hypotension secondary to severe sepsis History of underlying coronary artery disease History of pulmonary embolism History of bilateral internal carotid artery stenosis History of CVA with persistent hemiplegia Paroxysmal atrial fibrillation History of pulmonary embolism, on Eliquis History of pacemaker implantation Hypothyroidism History of psoriasis Plan: The patient was seen and evaluated Labs and medications reviewed Stable and on room air oxygen Eraxis and cefepime per ID service Anticoagulated with Eliquis Remains on her home anti seizure medication Dilaudid discontinued Plan is for Grace Joseph at discharge We will continue to follow I have personally seen and examined the patient, performed the documentation and the assessment and plan as written. Number of minutes spent on the visit: 10 Dictation was produced using [employer] dictation software. Please excuse any grammatical, word or spelling errors.
--- NOTE | 2025-03-08 15:48 | P.PN ---
Subjective Progress Note Date: 03/07/25 Principal diagnosis: Reason for follow-up is multiple skin lesion question of cellulitis and multiple antibiotic allergies Patient is a 54-year-old female with a past medical history significant for PE seizure disorder coronary artery disease has been diagnosed with bullous pemphigoid patient has been brought into the hospital concerning for weakness patient did have multiple skin lesions concerning for cellulitis prompting this consultation. On today's evaluation that is 03/07/2025,the patient remains to be afebrile, patient is on room air not requiring supplemental oxygen, the patient currently sleepy lethargic did not provide any history per the nurse. Patient not requiring any pressor support and no vomiting or diarrhea has been reported. Patient did have creatinine 0.59 Vanco trough is 25 Objective - Vital Signs Vital signs: Vital Signs Temp 98.0 F 03/07/25 12:00 Pulse 83 03/07/25 12:00 Resp 16 03/07/25 12:00 BP 108/53 03/07/25 12:00 Pulse Ox 96 03/07/25 12:00 FiO2 35 03/04/25 09:19 Intake & Output 03/06/25 03/07/25 03/07/25 18:59 06:59 18:59 Intake Total 832 370 360 Output Total 1585 800 350 Balance -753 -430 10 Weight 54.7 kg 54.6 kg Intake: IV 182 120 110 0.9 Sodium Chloride 120 20 10 Arterial Line 12 Cefepime 2 gm In Sodium 100 100 Chloride 0.9% 100 ml @ 25 mls/hr IVPB Q8H [facility] Rx#: [id number] Dextrose 5% in Water 1, 50 000 ml @ 50 mls/hr IV . Q20H [facility] Rx#:[id number] Intake, IV Titration 650 250 250 Amount Anidulafungin 100 mg In 100 Sodium Chloride 0.9% 100 ml @ 84 mls/hr IVPB DAILY [facility] Rx#:[id number] Cefepime 2 gm In Sodium 100 Chloride 0.9% 100 ml @ 25 mls/hr IVPB Q8H [facility] Rx#: [id number] Magnesium Sulfate-D5w Pmx 100 1 gm In Dextrose/Water 1 100ml.bag @ 100 mls/hr IVPB [facility] Rx#: [id number] Potassium Chloride 10 meq 100 In Water For Injection 1 100ml.bag @ 100 mls/hr IVPB Q1H [facility] Rx#: [id number] Vancomycin 1,250 mg In 250 250 250 Sodium Chloride 0.9% 250 ml @ 125 mls/hr IVPB Q12H [facility] Rx#:[id number] Output: Urine 1585 800 350 Other: Voiding Method Indwelling Catheter Indwelling Catheter Indwelling Catheter ABP, PAP, CO, CI - Last Documented Arterial Blood Pressure 90/74 - Exam GENERAL DESCRIPTION: Middle-age female lying in bed in no distress RESPIRATORY SYSTEM: Unlabored breathing , decreased breath sounds at bases HEART: S1 S2 regular rate and rhythm , ABDOMEN: Soft , no tenderness SKIN: Multiple ulcerated lesions but no drainage - Labs CBC & Chem 7: 03/08/25 08:29 03/08/25 08:29 Labs: Abnormal Lab Results - Last 24 Hours (Table) 03/06/25 Range/Units 23:13 POC Glucose (mg/dL) 123 H (70-110) mg/dL Assessment and Plan (1) Skin ulcer of multiple sites Current Visit: Yes Status: Acute Code(s): L98.499 - NON-PRESSURE CHRONIC ULCER OF SKIN OF SITES W UNSP SEVERITY SNOMED Code(s): 03395580 (2) Bullous pemphigoid Current Visit: Yes Status: Acute Code(s): L12.0 - BULLOUS PEMPHIGOID SNOMED Code(s): 89052974 (3) Allergy to multiple antibiotics Current Visit: No Status: Acute Code(s): Z88.1 - ALLERGY STATUS TO OTHER ANTIBIOTIC AGENTS SNOMED Code(s): 712120817 Plan: 1 Patient presented to hospital with fall due to generalized weakness and did have multiple skin lesion with outpatient diagnosis of bullous pemphigoid patient did have worsening of her respiratory status requiring intubation sputum culture positive for MSSA urine with E. coli drug-resistant E. coli sensitive to ceftriaxone 2patient did have worsening of respiratory status requiring reintubation bronchoscopy concerning for mucous plugging BAL culture so far negative patient subsequently has been resuscitated and has been extubated 3patient did have improvement her fever pattern white count has normalized 4patient noticed to have elevated vancomycin trough vancomycin has been discontinued creatinine has been normal continue with Eraxis at this point Dictation was produced using [employer] software. please excuse any grammatical, word or spelling errors. Time with Patient: Less than 30
[2025-03-08 16:33] LABS: Glucose,Whole Blood 79 mg/dL (70-110)
--- NOTE | 2025-03-08 18:39 | P.PN ---
Subjective Progress Note Date: 03/08/25 The patient was seen this morning. She continues to be intubated on mechanical ventilation she continues to be hemodynamically stable requiring norepinephrine but she is requiring less norepinephrine compared to before. Urine output continues to be marginal. She is on Lasix IV at 40 mg twice daily. She is not on any cardiomyopathy medications because of the hemodynamical instability and requiring norepinephrine. The echo showed an EF between 25 to 30%. The physical examination is remarkable for intubated patient on mechanical ventilation with diminished breathing sounds bilaterally and regular rate and rhythm. February 26, 2025 The patient was seen and evaluated this morning. She continues to be intubated. She is still on Lasix IV. The pressure still low requiring norepinephrine but we are coming down with a dose. The chest x-ray was reviewed this morning and seems to be overall better in terms of fluid overload. We potentially can come down with a dose of IV Lasix and possible wean the patient off from norepinephrine. The physical examination is remarkable for regular rhythm with diminished breathing sounds bilaterally and mild bilateral lower extremity edema and skin changes noted. She is on oral anticoagulation. February 27, 2025 The patient was seen and evaluated this morning. She was extubated yesterday and then she reintubated again because she developed hypoxic respiratory failure. The chest x-ray showed complete opacification of the left lung. She is in process of having possible bronchoscopy. Hemodynamically she remains unstable requiring small dose of norepinephrine. The physical examination is remarkable for regular rate and rhythm with a systolic murmur at the right and left upper sternal border and wheezing was noted also. February 28, 2025 The patient was seen and evaluated this morning. She underwent bronchoscopy yesterday. The chest x-ray today appears to be better. The complete opacification of the left lung has resolved completely. Currently she is intubated on mechanical ventilation. She is off norepinephrine at this point and hemodynamically stable and maintaining normal sinus mechanism. Physical examination is remarkable for regular rhythm with a systolic murmur at the right upper sternal border and clear breathing sounds bilaterally and no edema was noted in the lower extremities with extensive skin rash. March 01, 2025 Intubed and sedated. She is back on levophed. + fever, cxr ok March 02, 2025 Pt seen in ICU. She remains intubated, off sedation she does follow commands per nursing. She is still on levophed. March 03, 2025 Patient seen in ICU. Remains intubated, off sedation, following simple commands. Hemoglobin 7.2, creatinine 0.44. She had run of VT 120 beats overnight. Off levophed since overnight. 03/04/2025 Seen in ICU. Will get sedation vacation today and breathing trial. No further episodes of sustained or nonsustained VT noticed over last 24 hours. 03/05/2025 Seen in ICU. Was extubated yesterday. Recovering from bolus pemphigoid , skin lesions are healing well. Denies any chest pain chest pressure. Shortness of breath is improving. 03/06/2025 Seen and examined at bedside. Yesterday night she had a event with respiratory status and hypoxia. At that time she had a 20 beat NSVT run. Since then she h as not had any further NSVT's. Sinus tachycardia is a baseline rhythm. 03/07/2025 Seen and examined at bedside this a.m. No further events of NSVT noticed on telemetry, sinus rhythm with intermittent sinus tachycardia. Appears euvolemic. 03/08/2025 Seen and examined at bedside this a.m. Intermittent sinus rhythm with sinus tachycardia, appears euvolemic, very sleepy this morning, Assessment Acute hypoxic respiratory failure Severe cardiomyopathy Heart failure with reduced ejection fraction Frequent PVCs and NSVT's Paroxysmal atrial fibrillation, Sinus rhythm at this point Multiple comorbid conditions including anemia Plan: Increase metoprolol to 25 twice daily. Continue Eliquis 5 twice daily, amiodarone 200 daily, Lipitor 40 mg daily, Continue oral anticoagulation and amiodarone Monitor the kidney function and electrolytes and hemoglobin Overall prognosis is guarded Apparently patient had some provide reaction with IV. Will avoid using Lasix for diuresis. Consider other diuretic regimen for her when needed. Currently she is euvolemic. She can be transferred out of ICU from cardiovascular standpoint Objective - Vital Signs Vital signs: Vital Signs Temp 99.2 F 03/08/25 16:00 Pulse 105 H 03/08/25 16:00 Resp 18 03/08/25 16:00 BP 108/60 03/08/25 16:00 Pulse Ox 99 03/08/25 16:00 FiO2 35 03/04/25 09:19 Intake & Output 03/07/25 03/08/25 03/08/25 18:59 06:59 18:59 Intake Total 720 30 200 Output Total 600 700 475 Balance 120 -954 -289 Weight 54.5 kg 54.5 kg Intake: IV 220 30 100 0.9 Sodium Chloride 20 Cefepime 2 gm In Sodium 200 100 Chloride 0.9% 100 ml @ 25 mls/hr IVPB Q8H [facility] Rx#: [id number] Invasive Line 7 30 Intake, IV Titration 500 100 Amount Anidulafungin 100 mg In 100 Sodium Chloride 0.9% 100 ml @ 84 mls/hr IVPB DAILY [facility] Rx#:[id number] Vancomycin 1,250 mg In 500 Sodium Chloride 0.9% 250 ml @ 125 mls/hr IVPB Q12H [facility] Rx#:[id number] Oral 0 Output: Urine 600 700 475 Other: Voiding Method Indwelling Catheter Indwelling Catheter Indwelling Catheter ABP, PAP, CO, CI - Last Documented Arterial Blood Pressure 90/74 - Labs CBC & Chem 7: 03/08/25 08:29 03/08/25 08:29 Labs: Abnormal Lab Results - Last 24 Hours (Table) 03/08/25 03/08/25 Range/Units 08:29 08:29 RBC 2.88 L (4.10-5.20) 10*6/uL Hgb 7.7 L (12.0-15.0) g/dL Hct 26.4 L (37.2-46.3) % MCH 26.7 L (27.0-32.0) pg MCHC 29.2 L (32.0-37.0) g/dL Plt Count 444 H (140-440) 10*3/uL Eosinophils # 1.73 H (0.04-0.35) 10*3/uL Potassium 3.4 L (3.5-5.1) mmol/L Chloride 108 H (98-107) mmol/L Microbiology - Last 24 Hours (Table) 03/02/25 13:20 Blood Culture - Final Blood
[2025-03-08 20:25] LABS: Glucose,Whole Blood 80 mg/dL (70-110)
[2025-03-08] MEDS: ACETAMINOPHEN SUPPOSITORY 650 MG SUPP RECTAL PRN (22:48)
--- NOTE | 2025-03-09 01:26 | EEG ---
DATE OF SERVICE: 03/08/2025 ELECTROENCEPHALOGRAM REPORT PREAMBLE: This is a 54-year-old female with worsening mental status. The patient is currently on cefepime. EEG FINDINGS: This is a 21-channel digital EEG recorded with video component, utilizing 10/20 international system with referential and bipolar montages. Recording starts and continues with presence of diffuse moderate to high amplitude predominantly 2 to 3 Hz delta, with some theta slowing in bihemispheric region. Very frequent triphasic waves seen throughout the study. Different stages of sleep were not seen. No focal or generalized epileptiform activity was seen. Photic stimulation and hyperventilation were not done. IMPRESSION: This is an abnormal EEG due to presence of background slowing of [id number] degree, as well as presence of triphasic waves. This is suggestive of generalized cerebral dysfunction as can be seen with toxic metabolic encephalopathy or related to diffuse structural brain abnormality. This pattern can be seen with cephalosporin neurotoxicity. Followup EEG recommended, as clinically indicated. When compared to the EEG from 02/28/2025, the background has remarkably worsened as mentioned above. MMODL / IJN: [id number] / DINAH
[2025-03-09 02:22] LABS: Glucose,Whole Blood 74 mg/dL (70-110)
[2025-03-09 05:33] LABS: Glucose,Whole Blood 75 mg/dL (70-110)
[2025-03-09 05:42] LABS: ALT 65 U/L (4-34); AST 48 U/L (14-36); African American GFR (CKD) >90 (>60 ml/min/1.73 sqM); Albumin 2.9 g/dL (3.5-5.0); Alkaline Phosphatase 69 U/L (38-126); Anion Gap 12 mmol/L; Blood Urea Nitrogen 12 mg/dL (7-17); Calcium 9.0 mg/dL (8.4-10.2); Carbon Dioxide 22 mmol/L (22-30); Chloride 111 mmol/L (98-107); Glucose 69 mg/dL (74-99); Magnesium 1.8 mg/dL (1.6-2.3); Non-African American GFR(CKD) >90 (>60 ml/min/1.73 sqM); Potassium 3.4 mmol/L (3.5-5.1); Sodium 145 mmol/L (137-145); Total Protein 6.4 g/dL (6.3-8.2)
[2025-03-09] MEDS: MAGNESIUM SULFATE-D5W PMX 1 GM in DEXTROSE/WATER 1 100ML.BAG IVPB ONE (06:08)
[2025-03-09 07:00] LABS: HCT 26.9 % (37.2-46.3); HGB 7.9 g/dL (12.0-15.0); MCH 26.7 pg (27.0-32.0); MCHC 29.4 g/dL (32.0-37.0); MCV 90.9 fL (80.0-97.0); Platelet Count 498 10*3/uL (140-440); RBC 2.96 10*6/uL (4.10-5.20); RDW 17.0 % (11.5-14.5); WBC 8.02 10*3/uL (4.50-10.00)
--- NOTE | 2025-03-09 08:43 | P.PN ---
Subjective Progress Note Date: 03/08/25 03/08/2025: Neurology was reconsulted for worsening mental status. Came to see patient, she is very lethargic, not much responding. She continues to have blisters and pemphigoid rash. 03/04/2025: Patient was seen for a follow-up. Patient is extubated. She is fully alert and awake. Patient's daughter was also present by the bedside and patient's nurse was also present. Patient's rash is much improved. It was felt the rash was likely related to Lasix. Patient tells me that she has 2 daughters. One of them resembles her. 02/23/2025: Patient was seen for follow-up. She is now in the ICU. Patient apparently had episode of unresponsive in the morning. Patient was unresponsive to sternal rub with agonal breathing. Heart rate was 120, blood pressure 120/78, saturation 57%. Patient was intubated at 3:32 AM and transferred to ICU. Patient's chest x-ray showed multifocal airspace opacities. Pulmonary and critical care suspecting acute hypoxic respiratory failure, likely secondary to acute pulmonary edema. Patient has developed dense and diffuse bilateral pulmonary consolidation and the patient was severely hypoxic, failed BiPAP therapy and patient was intubated. Pneumonia is felt doubtful. Patient does have CHF with cardiomyopathy with LV dysfunction with EF of 30 to 35%. Patient has paroxysmal atrial fibrillation, anticoagulated with Eliquis. Objective - Vital Signs Vital signs: Vital Signs Temp 100.4 F H 03/08/25 08:00 Pulse 80 03/08/25 08:00 Resp 18 03/08/25 08:00 BP 94/58 03/08/25 08:00 Pulse Ox 99 03/08/25 08:00 FiO2 35 03/04/25 09:19 Intake & Output 03/07/25 03/08/25 03/08/25 18:59 06:59 18:59 Intake Total 720 30 30 Output Total 600 700 Balance 120 -670 30 Weight 54.5 kg Intake: IV 220 30 30 0.9 Sodium Chloride 20 Cefepime 2 gm In Sodium 200 Chloride 0.9% 100 ml @ 25 mls/hr IVPB Q8H [facility] Rx#: [id number] Invasive Line 7 30 30 Intake, IV Titration 500 Amount Vancomycin 1,250 mg In 500 Sodium Chloride 0.9% 250 ml @ 125 mls/hr IVPB Q12H [facility] Rx#:[id number] Output: Urine 600 700 Other: Voiding Method Indwelling Catheter Indwelling Catheter Indwelling Catheter ABP, PAP, CO, CI - Last Documented Arterial Blood Pressure 90/74 - Exam Patient is lethargic, laying in the bed. In no distress. Continues to have rash. Pupils are equal, round and reacting. - Labs CBC & Chem 7: 03/09/25 06:04 03/09/25 04:32 Labs: Abnormal Lab Results - Last 24 Hours (Table) 03/07/25 03/08/25 03/08/25 Range/Units 17:24 08:29 08:29 RBC 2.88 L (4.10-5.20) 10*6/uL Hgb 7.7 L (12.0-15.0) g/dL Hct 26.4 L (37.2-46.3) % MCH 26.7 L (27.0-32.0) pg MCHC 29.2 L (32.0-37.0) g/dL Plt Count 444 H (140-440) 10*3/uL Eosinophils # 1.73 H (0.04-0.35) 10*3/uL Potassium 3.4 L (3.5-5.1) mmol/L Chloride 108 H (98-107) mmol/L POC Glucose (mg/dL) 113 H (70-110) mg/dL Microbiology - Last 24 Hours (Table) 03/02/25 13:20 Blood Culture - Final Blood Assessment and Plan Assessment: * Altered mental status, likely due to toxic metabolic encephalopathy. Rule out cephalosporin toxicity. * Acute respiratory failure due to acute pulmonary edema, resolved. * Status post accidental fall due to losing balance. Patient denies any presyncopal symptoms, loss of consciousness. She is positive it was not a seizure, just accidental fall due to losing balance. * History of CVA with residual spastic left hemiparesis. * Bullous pemphigoid mainly over lower extremities. Follows up with dermatology. [place] is related to Lasix. * Seizure disorder for long time, seizures in remission since 2009--no further seizures. * History of Atrial Fibrillation, on Eliquis. 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 * History of pacemaker. * CHF Plan: * Repeat EEG was performed today. It was abnormal due to presence of background slowing of moderate to severe degree as well as presence of triphasic waves. This is suggestive of generalized cerebral dysfunction as can be seen with toxic metabolic encephalopathy or related to diffuse structural brain abnor mality. This pattern can also be seen with cephalosporin neurotoxicity. Follow-up EEG recommended as clinically indicated. Discussed with ID, cefepime has been discontinued. We will follow patient closely. Repeat EEG on Tuesday. * CT head 02/23/2025 revealed stable remote right large MCA territory infarct with encephalomalacia again seen. Remote left frontal lobe infarct with encephalomalacia. Additional small regions of encephalomalacia from prior injury involving the bilateral cerebellum. These are all old findings. Nonspecific white matter changes, likely secondary to chronic small vessel ischemic disease. * Initial EEG 02/28/2025: Is abnormal. The background slowing is suggestive of mild encephalopathy. There is no focal slowing, epileptiform discharge or seizure on the EEG. * CTA of head and neck revealed no evidence of dissection of the cervical internal carotid arteries or vertebral arteries or any evidence of significant stenosis at the carotid bifurcations. Moderate stenosis involving the cavernous portion of the internal carotid arteries bilaterally secondary to calcified plaque. No evidence of intracranial aneurysm. * Continue Eliquis 5 mg twice daily for stroke prevention from A-fib. * Hemoglobin A1c 5.6, fasting lipid panel with cholesterol 102, LDL 48, HDL 36 and triglycerides 86. Lipids are well-controlled. * Continue seizure medications including Keppra 1500 mg twice daily, Tegretol 200 mg 3 times daily and gabapentin [address] Serrano has also started patient on Vimpat 50 mg twice a day for breakthrough seizure. * Tegretol 12.8 (4-12) and Keppra 50.6 (3-60). Patient states that she has been on these medications since 2008 tolerating it well. She does not believe rash is from these medications. Patient wishes to continue same dose of her seizure medications. * For bullous pemphigoid, patient to follow-up with her interior design coordinator. Patient states interior design coordinator mentioned that rash was from Lasix, which they have discontinued. However the rationale appears to be worse again.
[2025-03-09 08:57] LABS: Eosinophils # (M) 2.09 k/uL (0-0.7); Lymphocytes # (M) 0.64 k/uL (1.0-4.8); Monocytes # (M) 0.56 k/uL (0-1.0); Neutrophils # (M) 4.73 k/uL (1.3-7.7); Neutrophils % (M) 59 %; Total Cells Counted 100
--- NOTE | 2025-03-09 11:29 | P.PN ---
Subjective Progress Note Date: 03/09/25 Seen today on 03/02/2025, patient remains in the ICU intubated mechanically ventilated on assist-control rate of 20 tidal volume 400 FiO2 40% PEEP of 5 ABG showed a pO2 of 128 pCO2 43 pH of 7.47 has FiO2 was cut down to 35%. Last night the patient had a Tmax of 102, remains on antibiotics as per infectious disease including vancomycin and cefepime. Patient is on propofol at 35 mg/kg/min she is requiring norepinephrine at 0.07 mcg/kg/min. Patient was initially intubated on 02/22 extubated on 02/26 reintubated on 02/27. Her mental status remains marginal at best, patient follows simple instructions but she does not seem to open her eyes, and she does not maintain any eye contact. WBC count today is 8.4 hemoglobin 7.3 platelets are normal ABG as noted earlier electrolytes are normal except for low potassium of 3.2, renal profile is normal chest x-ray showed minimal multifocal airspace opacities with left lower lobe atelectasis and possibly a small tiny left pleural effusion. Patient was seen today on 03/03/2025, remains in the ICU, intubated and mechanically ventilated, on assist-control rate of 20 tidal volume 400 FiO2 35% PEEP of 5 ABG showed a pO2 of 107 pCO2 39 pH of 7.49. Propofol is presently on hold patient is on IV fluid 0.9 at 50 cc/h she is also receiving vital HP at 15 mL/h. Her sputum has been positive for MSSA her urine is positive for E. coli. Her antibiotics are being addressed by infectious disease on the case. WBC count is 8.1 hemoglobin 7.2 platelets are 302 basic metabolic profile is normal, renal profile is normal. Blood sugar is 134. Considering the patient is awake and at least she is opening her eyes although she does not maintain a good eye contact, this is the best she has been neurologically, and I will go ahead and give the patient another trial of weaning utilizing pressure support of 12 and CPAP. And will decide whether to taper down her pressure support or to proceed to weaning and extubation sometime later today. If not we will try the same thing again tomorrow. Chest x-ray today showed minimal multifocal airspace opacities. The patient is seen today March 04, 2025 in follow-up in the intensive care unit. She remains intubated on the mechanical ventilator currently on assist-control mode at a rate of 20, tidal volume 400, FiO2 35% and a PEEP of 5. Morning blood gases reveal a PO2 of 111, pCO2 41 and pH of 7.46. She remains off sedation. She is more awake and alert. Following simple commands. She has D5W at 50 mL/h. She is being nourished with vital HP at 58 mL/h which is her goal. Normal saline at keep vein open. White count 8.6. Hemoglobin 7.3. Platelets 298. Sodium 136. Potassium 3.8. Bicarb 28. BUN 17. Creatinine 0.55. Glucose 135. Follow-up sputum culture revealed no growth. Blood cultures revealed no growth. She remains on cefepime and vancomycin. Anticoagulated with Eliquis. Chest x-ray reveals no focal consolidation. The patient is seen today March 05, 2025 in follow-up in the intensive care unit. She was extubated yesterday. She is currently sitting up in bed. Awake and alert in no acute distress. Maintaining good O2 saturations in the 90s on 2 L/min per nasal cannula. She is receiving D5W at 50 mL/h. Normal saline at 20 mL/h. She remains on vancomycin and cefepime. Anticoagulated with Eliquis. Remains on Eraxis. Chest x-ray reveals interval removal of endotracheal tube and NG tube. Stable left IJ central venous catheter in place. Cardiomegaly with some left midlung patchy opacity. White count 9.7. Hemoglobin 7.5. Platelets 344. Sodium 135. Potassium 3.7. Bicarb 28. BUN 13. Creatinine 0.43. Glucose 102. Follow-up blood culture revealed no growth. Sputum culture revealed no growth. Patient is seen today March 06, 2025 in follow-up in the intensive care unit. She is currently sitting up in bed. Awake and alert in no acute distress. Maintaining O2 saturation in the 90s on 2 L/min per nasal cannula. She has D5W at 50 mL/h. She is continued on Eraxis, cefepime and vancomycin. Chest x-ray continues to show cardiomegaly with pulmonary vascular congestion. Left patchy basilar airspace opacity. Initial blood cultures were positive for MSSA. Urine culture positive for E. coli. Follow-up blood cultures revealed no growth. Sputum culture revealed no growth. White count 8.6. Hemoglobin 7.8. Platelets 416. Sodium 136. Potassium 3.7. Bicarb 24. BUN 11. Creatinine 0.54. Glucose 98. She is afebrile. Hemodynamically stable. She is continued on prednisone. Anticoagulated with Eliquis. Continued on her seizure medications. The patient is seen today March 07, 2025 in follow-up in the intensive care unit. She is a 3 S. overflow patient. She is awake and alert in no acute distress. Resting comfortably in bed. Maintaining O2 saturations in the 90s on 2 L/min per nasal cannula. Recent sputum culture revealed no growth. Blood cultures revealed no growth. Magnesium level 2.1. She remains on Eraxis, cefepime and vancomycin. Anticoagulated with Eliquis. The patient is seen today March 08, 2025 in follow-up on the selective care unit. She was transferred out of the intensive care unit yesterday. She is a little less responsive today compared to yesterday. She is arousable. She is maintaining O2 saturations in the high 90s on room air oxygen. Somewhat febrile. Hemodynamically stable. Follow-up sputum culture revealed no growth. Blood culture revealed no growth. White count 7.4. Hemoglobin 7.7. Platelets 444. Sodium 140. Potassium 3.4. Bicarb 23. BUN 10. Creatinine 0.59. She remains on Eraxis, cefepime. Remains on amiodarone. Anticoagulated with Eliquis. The patient is seen today March 09, 2025 in follow-up on the selective care unit. She is more awake and alert today. She is resting fairly comfortably in bed. She still has a poor appetite. Needs increased encouragement for oral intake. She is maintaining good O2 saturations up to 100% on room air. She is afebrile. Hemodynamically stable. White count 8.0. Hemoglobin 7.9. Platelets 498. Sodium 145. Potassium 3.4. Bicarb 22. BUN 12. Creatinine 0.56. Glucose 69. She remains on Eraxis and daptomycin. Continued on prednisone. Anticoagulated with Eliquis. No seizure activity. Objective - Vital Signs Vital signs: Vital Signs Temp 97.8 F 03/09/25 08:00 Pulse 85 03/09/25 08:10 Resp 17 03/09/25 08:10 BP 106/53 03/09/25 08:00 Pulse Ox 100 03/09/25 08:00 FiO2 35 03/04/25 09:19 Intake & Output 03/08/25 03/09/25 03/09/25 18:59 06:59 18:59 Intake Total 200 Output Total 475 300 Balance -275 -300 Weight 54.5 kg 54.5 kg Intake: IV 100 Cefepime 2 gm In Sodium 100 Chloride 0.9% 100 ml @ 25 mls/hr IVPB Q8H [facility] Rx#: [id number] Intake, IV Titration 100 Amount Anidulafungin 100 mg In 100 Sodium Chloride 0.9% 100 ml @ 84 mls/hr IVPB DAILY [facility] Rx#:[id number] Oral 0 Output: Urine 475 300 Other: Voiding Method Indwelling Catheter Indwelling Catheter Indwelling Catheter ABP, PAP, CO, CI - Last Documented Arterial Blood Pressure 90/74 - Exam GENERAL EXAM: Awake, alert, thin, 54-year-old female, on room air oxygen, in no apparent distress. HEAD: Normocephalic. EYES: Normal reaction of pupils, equal size. NOSE: Clear with pink turbinates. THROAT: No erythema or exudates. NECK: No masses, no JVD. CHEST: No chest wall deformity. LUNGS: Equal air entry with few scattered rhonchi, crackles in the posterior bases. CVS: S1 and S2 normal with no audible murmur, regular rhythm. ABDOMEN: No hepatosplenomegaly, normal bowel sounds, no guarding or rigidity. SPINE: No scoliosis or deformity SKIN: Multiple healing skin lesions CENTRAL NERVOUS SYSTEM: No focal deficits, tone is normal in all 4 extremities. EXTREMITIES: There is no peripheral edema. No clubbing, no cyanosis. Peripher al pulses are intact. - Labs CBC & Chem 7: 03/09/25 06:04 03/09/25 04:32 Labs: Abnormal Lab Results - Last 24 Hours (Table) 03/09/25 03/09/25 Range/Units 04:32 06:04 RBC 2.96 L (4.10-5.20) 10*6/uL Hgb 7.9 L (12.0-15.0) g/dL Hct 26.9 L (37.2-46.3) % MCH 26.7 L (27.0-32.0) pg MCHC 29.4 L (32.0-37.0) g/dL Plt Count 498 H (140-440) 10*3/uL Lymphocytes # (Manual) 0.64 L (1.0-4.8) k/uL Eosinophils # (Manual) 2.09 H (0-0.7) k/uL Potassium 3.4 L (3.5-5.1) mmol/L Chloride 111 H (98-107) mmol/L Glucose 69 L (74-99) mg/dL AST 48 H (14-36) U/L ALT 65 H (4-34) U/L Albumin 2.9 L (3.5-5.0) g/dL Assessment and Plan Assessment: Acute hypoxic respiratory failure secondary to acute pulmonary edema, recovered and on room air Acute systolic congestive heart failure ejection fraction of 25 to 30% Left lung opacification noted on 02/27/2025, requiring bronchoscopy and extraction of mucous plug noted in the left upper lobe., Resolved Failed extubation, patient lasted almost 24 hours off mechanical ventilation. Had to be reintubated on 02/27/2025. Extubated again on 03/04/2025. Currently on oxygen at 2 L/min per nasal Multifocal opacities noted on previous chest x-ray, suggestive of MSSA pneumonia with positive sputum cultures for MSSA. Follow-up cultures showed no growth. Follow-up chest x-ray shows improvement Bullous pemphigoid disease Paroxysmal atrial fibrillation, anticoagulated with Eliquis History of seizure disorder Chronic bilateral lower extremity cellulitis secondary to MRSA Hypotension secondary to severe sepsis History of underlying coronary artery disease History of pulmonary embolism History of bilateral internal carotid artery stenosis History of CVA with persistent hemiplegia Paroxysmal atrial fibrillation History of pulmonary embolism, on Eliquis History of pacemaker implantation Hypothyroidism History of psoriasis Plan: The patient was seen and evaluated Labs and medications reviewed Stable and on room air oxygen Eraxis and cefepime per ID service Anticoagulated with Eliquis Needs increased encouragement for oral intake Plan is for [facility] at discharge We will continue to follow I have personally seen and examined the patient, performed the documentation and the assessment and plan as written. Number of minutes spent on the visit: 10 Dictation was produced using [employer] dictation software. Please excuse any grammatical, word or spelling errors.
[2025-03-09 11:33] LABS: Glucose,Whole Blood 80 mg/dL (70-110)
[2025-03-09] MEDS: POTASSIUM CHLORIDE 10 MEQ in WATER FOR INJECTION 1 100ML.BAG IVPB SCH (12:41)
--- NOTE | 2025-03-09 15:55 | P.PN ---
Subjective Progress Note Date: 03/08/25 Principal diagnosis: Reason for follow-up is multiple skin lesion question of cellulitis and multiple antibiotic allergies Patient is a 54-year-old female with a past medical history significant for PE seizure disorder coronary artery disease has been diagnosed with bullous pemphigoid patient has been brought into the hospital concerning for weakness patient did have multiple skin lesions concerning for cellulitis prompting this consultation. On today's evaluation that is 03/08/2025, the patient did have low-grade fever 100.4 F this morning patient has been transferred out of the ICU currently on telemetry floor remains to be discharged on a medical history no vomiting or diarrhea has been reported patient IJ has been removed and nursing staff has been concerned there was slight purulent drainage. Patient white count 7.46, creatinine 0.59 Sputum culture have been negative Objective - Vital Signs Vital signs: Vital Signs Temp 100.4 F H 03/08/25 08:00 Pulse 80 03/08/25 08:00 Resp 18 03/08/25 08:00 BP 94/58 03/08/25 08:00 Pulse Ox 99 03/08/25 08:00 FiO2 35 03/04/25 09:19 Intake & Output 03/07/25 03/08/25 03/08/25 18:59 06:59 18:59 Intake Total 720 30 30 Output Total 600 700 Balance 120 -670 30 Weight 54.5 kg Intake: IV 220 30 30 0.9 Sodium Chloride 20 Cefepime 2 gm In Sodium 200 Chloride 0.9% 100 ml @ 25 mls/hr IVPB Q8H [facility] Rx#: [id number] Invasive Line 7 30 30 Intake, IV Titration 500 Amount Vancomycin 1,250 mg In 500 Sodium Chloride 0.9% 250 ml @ 125 mls/hr IVPB Q12H [facility] Rx#:[id number] Output: Urine 600 700 Other: Voiding Method Indwelling Catheter Indwelling Catheter Indwelling Catheter ABP, PAP, CO, CI - Last Documented Arterial Blood Pressure 90/74 - Exam GENERAL DESCRIPTION: Middle-age female lying in bed in no distress RESPIRATORY SYSTEM: Unlabored breathing , decreased breath sounds at bases HEART: S1 S2 regular rate and rhythm , ABDOMEN: Soft , no tenderness SKIN: Multiple ulcerated lesions but no drainage - Labs CBC & Chem 7: 03/08/25 08:29 03/08/25 08:29 Labs: Abnormal Lab Results - Last 24 Hours (Table) 03/07/25 03/08/25 03/08/25 Range/Units 17:24 08:29 08:29 RBC 2.88 L (4.10-5.20) 10*6/uL Hgb 7.7 L (12.0-15.0) g/dL Hct 26.4 L (37.2-46.3) % MCH 26.7 L (27.0-32.0) pg MCHC 29.2 L (32.0-37.0) g/dL Plt Count 444 H (140-440) 10*3/uL Eosinophils # 1.73 H (0.04-0.35) 10*3/uL Potassium 3.4 L (3.5-5.1) mmol/L Chloride 108 H (98-107) mmol/L POC Glucose (mg/dL) 113 H (70-110) mg/dL Microbiology - Last 24 Hours (Table) 03/02/25 13:20 Blood Culture - Final Blood Assessment and Plan (1) Skin ulcer of multiple sites Current Visit: Yes Status: Acute Code(s): L98.499 - NON-PRESSURE CHRONIC ULCER OF SKIN OF SITES W UNSP SEVERITY SNOMED Code(s): 33229293 (2) Bullous pemphigoid Current Visit: Yes Status: Acute Code(s): L12.0 - BULLOUS PEMPHIGOID SNOMED Code(s): 81109160 (3) Allergy to multiple antibiotics Current Visit: No Status: Acute Code(s): Z88.1 - ALLERGY STATUS TO OTHER ANTIBIOTIC AGENTS SNOMED Code(s): 824686258 Plan: 1 Patient presented to hospital with fall due to generalized weakness and did have multiple skin lesion with outpatient diagnosis of bullous pemphigoid patient did have worsening of her respiratory status requiring intubation sputum culture positive for MSSA urine with E. coli drug-resistant E. coli sensitive to ceftriaxone 2patient did have worsening of respiratory status requiring reintubation bronchoscopy concerning for mucous plugging BAL culture so far negative patient subsequently has been resuscitated and has been extubated 3patient now having new fever and there was some purulent drainage from the right IJ when it was discontinued we did request for blood culture as well as catheter tip culture we will add daptomycin while waiting for those culture to finalize 4there was some abnormality seen on the EEG concerning for possible cefepime toxicity which has already been discontinued care discussed with the neurologist Dictation was produced using [employer] dictation software. please excuse any grammatical, word or spelling errors. Time with Patient: Greater than 30
--- NOTE | 2025-03-09 15:57 | P.PN ---
Subjective Progress Note Date: 03/09/25 Principal diagnosis: Reason for follow-up is multiple skin lesion question of cellulitis and multiple antibiotic allergies Patient is a 54-year-old female with a past medical history significant for PE seizure disorder coronary artery disease has been diagnosed with bullous pemphigoid patient has been brought into the hospital concerning for weakness patient did have multiple skin lesions concerning for cellulitis prompting this consultation. On today's evaluation that is 03/09/2024, patient did have a temperature of 98.8 F this afternoon patient is more awake and alert and denies having any chills, patient is on room air and breathing comfortably no chest pain or cough, the patient did not have any nausea vomiting abdominal pain or any diarrhea. Patient white count is 8.02 creatinine 0.56 catheter tip and blood culture repeat currently pending Objective - Vital Signs Vital signs: Vital Signs Temp 97.8 F 03/09/25 08:00 Pulse 85 03/09/25 08:10 Resp 17 03/09/25 08:10 BP 106/53 03/09/25 08:00 Pulse Ox 100 03/09/25 08:00 FiO2 35 03/04/25 09:19 Intake & Output 03/08/25 03/09/25 03/09/25 18:59 06:59 18:59 Intake Total 200 Output Total 475 300 Balance -275 -300 Weight 54.5 kg 54.5 kg Intake: IV 100 Cefepime 2 gm In Sodium 100 Chloride 0.9% 100 ml @ 25 mls/hr IVPB Q8H [facility] Rx#: [id number] Intake, IV Titration 100 Amount Anidulafungin 100 mg In 100 Sodium Chloride 0.9% 100 ml @ 84 mls/hr IVPB DAILY [facility] Rx#:[id number] Oral 0 Output: Urine 475 300 Other: Voiding Method Indwelling Catheter Indwelling Catheter Indwelling Catheter ABP, PAP, CO, CI - Last Documented Arterial Blood Pressure 90/74 - Exam GENERAL DESCRIPTION: Middle-age female lying in bed in no distress RESPIRATORY SYSTEM: Unlabored breathing , decreased breath sounds at bases HEART: S1 S2 regular rate and rhythm , ABDOMEN: Soft , no tenderness SKIN: Multiple ulcerated lesions but no drainage - Labs CBC & Chem 7: 03/09/25 06:04 03/09/25 04:32 Labs: Abnormal Lab Results - Last 24 Hours (Table) 03/09/25 03/09/25 Range/Units 04:32 06:04 RBC 2.96 L (4.10-5.20) 10*6/uL Hgb 7.9 L (12.0-15.0) g/dL Hct 26.9 L (37.2-46.3) % MCH 26.7 L (27.0-32.0) pg MCHC 29.4 L (32.0-37.0) g/dL Plt Count 498 H (140-440) 10*3/uL Lymphocytes # (Manual) 0.64 L (1.0-4.8) k/uL Eosinophils # (Manual) 2.09 H (0-0.7) k/uL Potassium 3.4 L (3.5-5.1) mmol/L Chloride 111 H (98-107) mmol/L Glucose 69 L (74-99) mg/dL AST 48 H (14-36) U/L ALT 65 H (4-34) U/L Albumin 2.9 L (3.5-5.0) g/dL Assessment and Plan (1) Skin ulcer of multiple sites Current Visit: Yes Status: Acute Code(s): L98.499 - NON-PRESSURE CHRONIC ULCER OF SKIN OF SITES W UNSP SEVERITY SNOMED Code(s): 66815438 (2) Bullous pemphigoid Current Visit: Yes Status: Acute Code(s): L12.0 - BULLOUS PEMPHIGOID SNOMED Code(s): 60738623 (3) Allergy to multiple antibiotics Current Visit: No Status: Acute Code(s): Z88.1 - ALLERGY STATUS TO OTHER ANTIBIOTIC AGENTS SNOMED Code(s): 896049676 Plan: 1 Patient presented to hospital with fall due to generalized weakness and did have multiple skin lesion with outpatient diagnosis of bullous pemphigoid patient did have worsening of her respiratory status requiring intubation sputum culture positive for MSSA urine with E. coli drug-resistant E. coli sensitive to ceftriaxone 2patient did have worsening of respiratory status requiring reintubation bronchoscopy concerning for mucous plugging BAL culture so far negative patient subsequently has been resuscitated and has been extubated 3patient now having new fever and there was some purulent drainage from the right IJ when it was discontinued we did request for blood culture as well as catheter tip culture 4Patient is currently being treated with daptomycin while waiting for the culture to finalize Dictation was produced using [employer] software. please excuse any grammatical, word or spelling errors. Time with Patient: Less than 30
[2025-03-09 16:23] LABS: Glucose,Whole Blood 105 mg/dL (70-110)
[2025-03-09] MEDS ORDERED: Potassium Replacement Protocol 1 EACH MISC MISCELLANE PRN (16:45)
--- NOTE | 2025-03-09 16:51 | P.PN ---
Subjective This is a pleasant 54 years old female who was recently diagnosed with bullous pemphigoid 3 months ago when she is sent from this facility to [facility], she had a biopsy followed by treatment with doxycycline and taper prednisone over 3 weeks. Also she has extensive long history of CHF and seizure disorder. She was previously in the ICU for severe sepsis. Now presents because of generalized weakness. Patient states she went and fell today while she was trying to get up to go to the restroom she found a green chair on her way she was too weak to move with so she fell on her buttocks she could not get up as usual so she called the family who helped her and called EMS. Patient stayed on the floor for about 25 minutes as she explains. Denies any abdominal pain vomiting or diarrhea Denies dysuria urgency but states she has not been since yesterday and she has been drinking a lot of water for this reason Denies chest pain or dyspnea or coughing. No headache dizziness She is a known case of previous stroke and severe left hemiparesis, patient states it is worse than before this time. Also there was some concern from some slurred speech but no double vision. Patient complains from feeling swollen in her legs She has extensive bullous disease, majority of them are ruptured throughout her trunk and extremities and there is surrounding with erythema more extensive edema in the lower extremities bilaterally. However there is no purulent discharge. No significant tenderness in this erythematous area Her traveling inventory associate Dr. Noriega neurologist is Dr. quiroz Patient with no fever blood pressure slightly on the low side but patient is symptomatic Blood pressure is fluctuation slightly on the low side Hemoglobin 10 WBC normal 8.6. Rest of labs unremarkable including electrolytes proBNP 1740 CT of the head and neck showing moderate stenosis of bilateral internal carotid arteries CT of the brain showing remote right large MCA territory infarct with encephalomalacia and remote left frontal infarct with encephalomalacia and bilateral cerebellar encephalomalacia Chest x-ray showing mild interstitial prominence may be bronchitis rule out mild pulmonary vascular congestion 02/21 Patient awake alert She looks hypovolemic with positive orthostatic vitals, yesterday we will give her a bolus of 500 cc. Albumin dropped from 2.7 down to 2.0. Patient has slightly worse leg swelling. She has multiple friable and ruptured bullae on the trunk and extremities with mild erythema surrounding these bullae especially in the lower extremities. These are chronic for the last 3 months diagnosed with bullous pemphigoid. Patient states that she took the steroids and that did not help much. She denies chest pain or dyspnea. No abdominal pain or vomiting. Patient currently not on antibiotics per ID team recommendation to keep monitoring while off antibiotics. No fever. Patient was on doxycycline for her bullous lesions at [facility] not sure if she needed for now, keep holding doxycycline. Cardiology is going to evaluate the patient. Neurology service also on the case however patient has chronic hemiplegia, and this morning she is not sure if it is left hemiplegia is at baseline or worse, however is severe and does not make much difference. No slurred speech no blurry vision. 02/22 Patient is looks tired lethargic Kirlin in bed and was shivering in the morning and developing fever also she is tachycardic and blood pressure is soft No chest pain or abdominal pain Still has erythema and swelling of both lower extremities suspected secondary to cellulitis, MRSA suspected and currently she is on IV vancomycin with infectious disease team recommendation She has good urine output and creatinine within the reference range. We give her a bolus of albumin given her hypoalbuminemia also if blood pressure remains low may consider a bolus of normal saline later on Midodrine was prescribed on admission as needed for hypotension but was not given by staff despite low blood pressure therefore we are going to switch it to standing dose Monitor labs and electrolytes and vitals closely 02/23 Patient yesterday was found unresponsive on the floor and there was foam in her mouth A team was called Patient got intubated and placed on mechanical ventilation transferred to the ICU. Patient currently intubated and sedated. Yesterday patient was hypotensive and tachycardic and altered mental status. This morning required Levophed 02/23 Patient remains in the ICU intubated and sedated, PEEP is 5 improved Female family member at bedside. Patient earlier was able to work She opened eyes and tried to communicate and she could recognize the family member, she was anxious as per family Patient required small dose of pressors earlier Continue on same antibiotics as per infectious disease team Off IV fluid Echocardiogram showed ejection fraction of 25 to 30% Increased left ventricular mass with very severe LV dysfunction Sputum culture growing Staph aureus pansensitive he Patient's rash of the lower extremity is significantly improved Discussed the case with pulmonary team 03/04 Resume the care of the patient today Patient remains in the ICU, she remains intubated on mechanical ventilation, currently this morning she is off sedation, she opens eyes spontaneously and to verbal commands she follows commands. She is not getting any pressors, currently getting D5W at 50 mL/h Also patient on broad-spectrum antibiotics of Eraxis, cefepime and IV vancomycin Repeat chest x-ray this morning showing significant improvement in her bilateral consolidation and pulmonary edema since To the ICU Pulmonary team are trying to continue with of sedation for possible extubation today 03/05 Patient is s/p extubation yesterday. Today she is fully awake oriented able to communicate, she follows command. She does not look in distress. She has mild hoarseness of voice which is expected. Also she will be tested for her ability to tolerate diet and dysphagia No chest pain no abdominal pain She still has fever around 100. She remains on antibiotic IV vancomycin and cefepime and Eraxis and ID team following closely Patient can be moved out of the ICU once cleared by critical care team 03/06 Patient still have fever spikes around 100 degree. She remains on broad- spectrum antibiotics with IV vancomycin, cefepime and Eraxis Multiple skin lesions very top and healed nicely. No chest pain or dyspnea or diarrhea. Patient has not started eating yet, she needs to pass swallow evaluation which is pending now She developed few seconds of nonsustained V. tach, also there was suspicious for torsade the point however QTc is 421 this morning on EKG Potassium 3.7 been replaced Monitor magnesium level as well 03/07 No events overnight Sleep fairly well this morning Denies any other new complaint She has difficult peripheral IV line placement, therefore we Central line for now. Patient remains in the ICU as MedSurg overflow to select unit She has been having fever continuously however over the last 24 to 48 hours she remains afebrile Vitals are stable WBC and hemoglobin stable as well as BMP is unremarkable Will ask for PT/OT evaluation as part of the discharge plan Patient probably will need rehab upon discharge Remains on IV antibiotics for now 03/08 Patient is more confused today this morning. She is calm does not look in distress. She has occasional cough and itching in the left upper extremity from his skin lesions She is still mildly tachycardic she still has low-grade fever 99.9. Blood pressure stable and saturation of oxygen is acceptable Monitor labs She remains on antibiotic with IV vancomycin and cefepime and Eraxis 03/09 Patient awake today but she does not answer questions, she is not talking. Patient could follow simple commands but not all of them for example when asked she open her mouth but would not stick her tongue out if she asked for. She does not look in distress breathing a quiet. In the morning she was refusing medication but looks like later on she agrees Patient is not eating much. There is nutritional consult over the weekend. Replacement to be evaluated probably on Tuesday. Skin lesions improved significantly Objective - Vital Signs Vital signs: Vital Signs Temp 97.8 F 03/09/25 08:00 Pulse 85 03/09/25 08:10 Resp 17 03/09/25 08:10 BP 106/53 03/09/25 08:00 Pulse Ox 100 03/09/25 08:00 FiO2 35 03/04/25 09:19 Intake & Output 03/08/25 03/09/25 03/09/25 18:59 06:59 18:59 Intake Total 200 Output Total 475 300 Balance -275 -300 Weight 54.5 kg 54.5 kg Intake: IV 100 Cefepime 2 gm In Sodium 100 Chloride 0.9% 100 ml @ 25 mls/hr IVPB Q8H [facility] Rx#: [id number] Intake, IV Titration 100 Amount Anidulafungin 100 mg In 100 Sodium Chloride 0.9% 100 ml @ 84 mls/hr IVPB DAILY [facility] Rx#:[id number] Oral 0 Output: Urine 475 300 Other: Voiding Method Indwelling Catheter Indwelling Catheter Indwelling Catheter ABP, PAP, CO, CI - Last Documented Arterial Blood Pressure 90/74 - Exam GENERAL: The patient is awake alert and oriented x 3, not in distress. HEENT: Pupils are round and equally reacting to light. EOMI. No scleral icterus. No conjunctival pallor. Normocephalic, atraumatic. No pharyngeal erythema. No thyromegaly. CARDIOVASCULAR: S1 and S2 present. No murmurs, rubs, or gallops. PULMONARY: Chest is clear to auscultation, no wheezing , no crackles. ABDOMEN: Soft, nontender, nondistended, normoactive bowel sounds. No palpable organomegaly. MUSCULOSKELETAL: No joint swelling or deformity. EXTREMITIES: No cyanosis, clubbing, or pedal edema. -Multiple eroded bullae and friable bullae with surrounding erythema throughout trunk and extremities ( bullous pemphigoid ), significantly improved and the almost dried up -NEUROLOGICAL: Gross neurological examination did not reveal any focal deficits. sever left hemiparesis (old per pt) SKIN: No rashes. no petechiae. - Labs CBC & Chem 7: 03/09/25 06:04 03/09/25 04:32 Labs: Abnormal Lab Results - Last 24 Hours (Table) 03/09/25 03/09/25 Range/Units 04:32 06:04 RBC 2.96 L (4.10-5.20) 10*6/uL Hgb 7.9 L (12.0-15.0) g/dL Hct 26.9 L (37.2-46.3) % MCH 26.7 L (27.0-32.0) pg MCHC 29.4 L (32.0-37.0) g/dL Plt Count 498 H (140-440) 10*3/uL Lymphocytes # (Manual) 0.64 L (1.0-4.8) k/uL Eosinophils # (Manual) 2.09 H (0-0.7) k/uL Potassium 3.4 L (3.5-5.1) mmol/L Chloride 111 H (98-107) mmol/L Glucose 69 L (74-99) mg/dL AST 48 H (14-36) U/L ALT 65 H (4-34) U/L Albumin 2.9 L (3.5-5.0) g/dL Assessment and Plan Assessment: seizure disorder Severe sepsis seizure disorder Poor oral intake Acute hypoxic respiratory failure s/p intubation/extubated on 03/04 Bilateral lower extremity cellulitis thought secondary to MRSA nonsustained V. tach Hypotension secondary to above, improved Worsening weakness on the left side associated with fall without syncope and transient slurred speech and some swallowing difficulty, rule out new stroke or worsening stroke Bullous pemphigoid with multiple eroded and friable bullae throughout the trunk and extremities with surrounding erythema on doxycycline and prednisone previously Cardiomyopathy with ejection fraction 35% Coronary artery disease History of PE History of stroke with persistent hemiplegia Moderate bilateral internal carotid artery stenosis Seizure disorder with history of breakthrough seizure Generalized weakness Plan: Patient is s/p extubation Follow-up swallow evaluation Monitor potassium to keep level above 4 and magnesium keep level above 2 Pulmonary/critical care team consult Nutrition consult Continue with IV vancomycin and f IV cefepime and Eraxis per ID team Patient follow-up with char filter tank tender head as an outpatient for her bullous lesions Cardiology team consulted for her severe cardiomyopathy Wound team consult Neurology team consult, continue with current seizure medication neurologist, currently on Tegretol 200 mg gabapentin 600 mg Vimpat 50 mg and Keppra 1500 mg Labs and medication were reviewed.. Continue same treatment. Continue with symptomatic treatment. Resume home medication. Monitor labs and vitals. DVT and GI prophylaxis. Further recommendations as per clinical course of the patient DVT prophylaxis: Eliquis GI Prophylaxis: Pepcid PT/OT: Pending Prognosis is guarded
[2025-03-09 19:55] LABS: Glucose,Whole Blood 117 mg/dL (70-110)
[2025-03-10 06:12] LABS: Glucose,Whole Blood 86 mg/dL (70-110)
[2025-03-10 07:42] LABS: African American GFR (CKD) >90 (>60 ml/min/1.73 sqM); Anion Gap 10 mmol/L; Blood Urea Nitrogen 16 mg/dL (7-17); Calcium 8.9 mg/dL (8.4-10.2); Carbon Dioxide 25 mmol/L (22-30); Chloride 112 mmol/L (98-107); Glucose 73 mg/dL (74-99); Non-African American GFR(CKD) >90 (>60 ml/min/1.73 sqM); Potassium 3.9 mmol/L (3.5-5.1); Sodium 147 mmol/L (137-145)
[2025-03-10 07:44] LABS: Basophils # (A) 0.05 10*3/uL (0.00-0.10); Basophils % (A) 0.7 %; Eosinophils # (A) 1.38 10*3/uL (0.04-0.35); Eosinophils % (A) 20.1 %; HCT 26.1 % (37.2-46.3); HGB 7.9 g/dL (12.0-15.0); Lymphocytes # (A) 1.44 10*3/uL (0.90-5.00); Lymphocytes % (A) 21.0 %; MCH 27.5 pg (27.0-32.0); MCHC 30.3 g/dL (32.0-37.0); MCV 90.9 fL (80.0-97.0); Monocytes # (A) 0.41 10*3/uL (0.20-1.00); Monocytes % (A) 6.0 %; Neutrophils # (A) 3.55 10*3/uL (1.80-7.70); Neutrophils % (A) 51.9 %; Platelet Count 502 10*3/uL (140-440); RBC 2.87 10*6/uL (4.10-5.20); RDW 16.9 % (11.5-14.5); WBC 6.85 10*3/uL (4.50-10.00)
--- NOTE | 2025-03-10 13:18 | P.PN ---
Subjective Progress Note Date: 03/09/25 03/09/2025: Patient was seen for a follow-up. Patient was sleeping. When I woke her up, patient started acting very unusual. The music was on on the TV and she started moving her head in the shoulders like dancing with the music. Then she started showing me tongue for no reason. She was smiling and acted very strange. Did not much cooperate with examination. Patient is definitely much m ore alert and awake as compared to yesterday. Patient is off cefepime. 03/08/2025: Neurology was reconsulted for worsening mental status. Came to see patient, she is very lethargic, not much responding. She continues to have blisters and pemphigoid rash. 03/04/2025: Patient was seen for a follow-up. Patient is extubated. She is fully alert and awake. Patient's daughter was also present by the bedside and patient's nurse was also present. Patient's rash is much improved. It was felt the rash was likely related to Lasix. Patient tells me that she has 2 ras ghters. One of them resembles her. 02/23/2025: Patient was seen for follow-up. She is now in the ICU. Patient apparently had episode of unresponsive in the morning. Patient was unresponsive to sternal rub with agonal breathing. Heart rate was 120, blood pressure 120/78, saturation 57%. Patient was intubated at 3:32 AM and transferred to ICU. Patient's chest x-ray showed multifocal airspace opacities. Pulmonary and critical care suspecting acute hypoxic respiratory failure, likely secondary to acute pulmonary edema. Patient has developed dense and diffuse bilateral pulmonary consolidation and the patient was severely hypoxic, failed BiPAP therapy and patient was intubated. Pneumonia is felt doubtful. Patient does have CHF with cardiomyopathy with LV dysfunction with EF of 30 to 35%. Patient has paroxysmal atrial fibrillation, anticoagulated with Eliquis. Objective - Vital Signs Vital signs: Vital Signs Temp 98.4 F 03/10/25 11:38 Pulse 77 03/10/25 11:38 Resp 17 03/10/25 11:38 BP 85/49 03/10/25 11:38 Pulse Ox 97 03/10/25 11:38 FiO2 35 03/04/25 09:19 Intake & Output 07/08/2203/10/25 03/10/25 18:59 06:59 18:59 Intake Total 118 120 360 Output Total 250 Balance -132 120 360 Weight 55 kg Intake: Oral 118 120 360 Output: Urine 250 Other: Voiding Method Indwelling Catheter Indwelling Catheter ABP, PAP, CO, CI - Last Documented Arterial Blood Pressure 90/74 - Exam As above. Patient continues to have rash. - Labs CBC & Chem 7: 03/10/25 05:50 03/10/25 05:50 Labs: Abnormal Lab Results - Last 24 Hours (Table) 03/09/25 03/10/25 03/10/25 Range/Units 19:52 05:50 05:50 RBC 2.87 L (4.10-5.20) 10*6/uL Hgb 7.9 L (12.0-15.0) g/dL Hct 26.1 L (37.2-46.3) % MCHC 30.3 L (32.0-37.0) g/dL Plt Count 502 H (140-440) 10*3/uL Eosinophils # 1.38 H (0.04-0.35) 10*3/uL Sodium 147 H (137-145) mmol/L Chloride 112 H (98-107) mmol/L Glucose 73 L (74-99) mg/dL POC Glucose (mg/dL) 117 H (70-110) mg/dL Microbiology - Last 24 Hours (Table) 03/08/25 14:30 Blood Culture - Preliminary Blood 03/08/25 15:00 Catheter Tip Culture - Preliminary Catheter Tip Assessment and Plan Assessment: * Altered mental status, likely due to toxic metabolic encephalopathy. Probable due to cephalosporin toxicity. Patient is off cefepime. Mentation has improved. * Acute respiratory failure due to acute pulmonary edema, resolved. * Status post accidental fall due to losing balance. Patient denies any presyncopal symptoms, loss of consciousness. She is positive it was not a sei zure, just accidental fall due to losing balance. * History of CVA with residual spastic left hemiparesis. * Bullous pemphigoid mainly over lower extremities. Follows up with dermatology. Cameron is related to Lasix. * Seizure disorder for long time, seizures in remission since 2009--no further seizures. * History of Atrial Fibrillation, on Eliquis. 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 * History of pacemaker. * CHF Plan: * Repeat EEG was performed 03/08/2025. It was abnormal due to presence of background slowing of moderate to severe degree as well as presence of triphasic waves. This is suggestive of generalized cerebral dysfunction as can be seen with toxic metabolic encephalopathy or related to diffuse structural brain abnormality. This pattern can also be seen with cephalosporin neurotoxicity. Follow-up EEG recommended as clinically indicated. Discussed with ID, cefepime has been discontinued. We will follow patient closely. Repeat EEG on Tuesday. * Mentation has much improved but she is acting strangely as mentioned above. * Neurology will follow. * CT head 02/23/2025 revealed stable remote right large MCA territory infarct with encephalomalacia again seen. Remote left frontal lobe infarct with encephalomalacia. Additional small regions of encephalomalacia from prior injury involving the bilateral cerebellum. These are all old findings. Nonspecific white matter changes, likely secondary to chronic small vessel ischemic disease. * Initial EEG 02/28/2025: Is abnormal. The background slowing is suggestive of mild encephalopathy. There is no focal slowing, epileptiform discharge or seizure on the EEG. * CTA of head and neck revealed no evidence of dissection of the cervical internal carotid arteries or vertebral arteries or any evidence of significant stenosis at the carotid bifurcations. Moderate stenosis involving the cavernous portion of the internal carotid arteries bilaterally secondary to calcified plaque. No evidence of intracranial aneurysm. * Continue Eliquis 5 mg twice daily for stroke prevention from A-fib. * Hemoglobin A1c 5.6, fasting lipid panel with cholesterol 102, LDL 48, HDL 36 and triglycerides 86. Lipids are well-controlled. * Continue seizure medications including Keppra 1500 mg twice daily, Tegretol 200 mg 3 times daily and gabapentin [address] Serrano has also started patient on Vimpat 50 mg twice a day for breakthrough seizure. * Tegretol 12.8 (4-12) and Keppra 50.6 (3-60). Patient states that she has been on these medications since 2008 tolerating it well. She does not believe rash is from these medications. Patient wishes to continue same dose of her seizure medications. * For bullous pemphigoid, patient to follow-up with her business support liaison. Patient states business support liaison mentioned that rash was from Lasix, which they have discontinued. However the rationale appears to be worse again.
--- NOTE | 2025-03-10 15:22 | P.PN ---
Subjective Progress Note Date: 03/10/25 Principal diagnosis: Reason for follow-up is multiple skin lesion question of cellulitis and multiple antibiotic allergies Patient is a 54-year-old female with a past medical history significant for PE seizure disorder coronary artery disease has been diagnosed with bullous pemphigoid patient has been brought into the hospital concerning for weakness patient did have multiple skin lesions concerning for cellulitis prompting this consultation. On today's evaluation that is 03/10/2025, Patient is afebrile patient is currently on room air and denies having any shortness of breath, the patient denies any chest pain or cough, the patient denies any nausea vomiting did not have any abdominal pain and no diarrhea. Patient white count 6.85, creatinine 0.57 blood culture and catheter cultures were pending Objective - Vital Signs Vital signs: Vital Signs Temp 98.4 F 03/10/25 11:38 Pulse 77 03/10/25 11:38 Resp 17 03/10/25 11:38 BP 85/49 03/10/25 11:38 Pulse Ox 97 03/10/25 11:38 FiO2 35 03/04/25 09:19 Intake & Output 03/09/25 03/10/25 03/10/25 18:59 06:59 18:59 Intake Total 118 120 720 Output Total 250 575 Balance -132 120 145 Weight 55 kg Intake: Oral 118 120 720 Output: Urine 250 575 Other: Voiding Method Indwelling Catheter Indwelling Catheter ABP, PAP, CO, CI - Last Documented Arterial Blood Pressure 90/74 - Exam GENERAL DESCRIPTION: Middle-age female lying in bed in no distress RESPIRATORY SYSTEM: Unlabored breathing , decreased breath sounds at bases HEART: S1 S2 regular rate and rhythm , ABDOMEN: Soft , no tenderness SKIN: Multiple ulcerated lesions but no drainage - Labs CBC & Chem 7: 03/10/25 05:50 03/10/25 05:50 Labs: Abnormal Lab Results - Last 24 Hours (Table) 03/09/25 03/10/25 03/10/25 Range/Units 19:52 05:50 05:50 RBC 2.87 L (4.10-5.20) 10*6/uL Hgb 7.9 L (12.0-15.0) g/dL Hct 26.1 L (37.2-46.3) % MCHC 30.3 L (32.0-37.0) g/dL Plt Count 502 H (140-440) 10*3/uL Eosinophils # 1.38 H (0.04-0.35) 10*3/uL Sodium 147 H (137-145) mmol/L Chloride 112 H (98-107) mmol/L Glucose 73 L (74-99) mg/dL POC Glucose (mg/dL) 117 H (70-110) mg/dL Microbiology - Last 24 Hours (Table) 03/08/25 15:00 Catheter Tip Culture - Final Catheter Tip 03/08/25 14:30 Blood Culture - Preliminary Blood Assessment and Plan (1) Skin ulcer of multiple sites Current Visit: Yes Status: Acute Code(s): L98.499 - NON-PRESSURE CHRONIC ULCER OF SKIN OF SITES W UNSP SEVERITY SNOMED Code(s): 09905211 (2) Bullous pemphigoid Current Visit: Yes Status: Acute Code(s): L12.0 - BULLOUS PEMPHIGOID SNOMED Code(s): 10904108 (3) Allergy to multiple antibiotics Current Visit: No Status: Acute Code(s): Z88.1 - ALLERGY STATUS TO OTHER ANTIBIOTIC AGENTS SNOMED Code(s): 675512731 Plan: 1 Patient presented to hospital with fall due to generalized weakness and did have multiple skin lesion with outpatient diagnosis of bullous pemphigoid patient did have worsening of her respiratory status requiring intubation sputum culture positive for MSSA urine with E. coli drug-resistant E. coli sensitive to ceftriaxone 2patient did have worsening of respiratory status requiring reintubation bronchoscopy concerning for mucous plugging BAL culture so far negative patient subsequently has been resuscitated and has been extubated 3patient did have new fever and there was some purulent drainage from the right IJ when it was discontinued we did request for blood culture as well as catheter tip culture 4Patient to continue with daptomycin while waiting for the culture to finalize and discontinue Erax[employer] Dictation was produced using Vison[employer] software. please excuse any grammatical, word or spelling errors. Time with Patient: Less than 30
[2025-03-10 20:01] LABS: Glucose,Whole Blood 224 mg/dL (70-110)
--- NOTE | 2025-03-10 23:34 | P.PN ---
Subjective Progress Note Date: 03/10/25 The patient was seen this morning. She continues to be intubated on mechanical ventilation she continues to be hemodynamically stable requiring norepinephrine but she is requiring less norepinephrine compared to before. Urine output continues to be marginal. She is on Lasix IV at 40 mg twice daily. She is not on any cardiomyopathy medications because of the hemodynamical instability and requiring norepinephrine. The echo showed an EF between 25 to 30%. The physical examination is remarkable for intubated patient on mechanical ventilation with diminished breathing sounds bilaterally and regular rate and rhythm. February 26, 2025 The patient was seen and evaluated this morning. She continues to be intubated. She is still on Lasix IV. The pressure still low requiring norepinephrine but we are coming down with a dose. The chest x-ray was reviewed this morning and seems to be overall better in terms of fluid overload. We potentially can come down with a dose of IV Lasix and possible wean the patient off from norepinephrine. The physical examination is remarkable for regular rhythm with diminished breathing sounds bilaterally and mild bilateral lower extremity edema and skin changes noted. She is on oral anticoagulation. February 27, 2025 The patient was seen and evaluated this morning. She was extubated yesterday and then she reintubated again because she developed hypoxic respiratory failure. The chest x-ray showed complete opacification of the left lung. She is in process of having possible bronchoscopy. Hemodynamically she remains unstable requiring small dose of norepinephrine. The physical examination is remarkable for regular rate and rhythm with a systolic murmur at the right and left upper sternal border and wheezing was noted also. February 28, 2025 The patient was seen and evaluated this morning. She underwent bronchoscopy yesterday. The chest x-ray today appears to be better. The complete opacification of the left lung has resolved completely. Currently she is intubated on mechanical ventilation. She is off norepinephrine at this point and hemodynamically stable and maintaining normal sinus mechanism. Physical examination is remarkable for regular rhythm with a systolic murmur at the right upper sternal border and clear breathing sounds bilaterally and no edema was noted in the lower extremities with extensive skin rash. March 01, 2025 Intubed and sedated. She is back on levophed. + fever, cxr ok March 02, 2025 Pt seen in ICU. She remains intubated, off sedation she does follow commands per nursing. She is still on levophed. March 03, 2025 Patient seen in ICU. Remains intubated, off sedation, following simple commands. Hemoglobin 7.2, creatinine 0.44. She had run of VT 120 beats overnight. Off levophed since overnight. 03/04/2025 Seen in ICU. Will get sedation vacation today and breathing trial. No further episodes of sustained or nonsustained VT noticed over last 24 hours. 03/05/2025 Seen in ICU. Was extubated yesterday. Recovering from bolus pemphigoid , skin lesions are healing well. Denies any chest pain chest pressure. Shortness of breath is improving. 03/06/2025 Seen and examined at bedside. Yesterday night she had a event with respiratory status and hypoxia. At that time she had a 20 beat NSVT run. Since then she h as not had any further NSVT's. Sinus tachycardia is a baseline rhythm. 03/07/2025 Seen and examined at bedside this a.m. No further events of NSVT noticed on telemetry, sinus rhythm with intermittent sinus tachycardia. Appears euvolemic. 03/08/2025 Seen and examined at bedside this a.m. Intermittent sinus rhythm with sinus tachycardia, appears euvolemic, very sleepy this morning, 07/11/2025 Seen and examined at bedside this a.m. No significant tachyarrhythmias noticed on telemetry which she was having previously, appears euvolemic, less sleepy today, more oriented. Assessment Acute hypoxic respiratory failure Severe cardiomyopathy Heart failure with reduced ejection fraction Frequent PVCs and NSVT's Paroxysmal atrial fibrillation, Sinus rhythm at this point Multiple comorbid conditions including anemia Plan: Continue metoprolol to 25 twice daily. Continue Eliquis 5 twice daily, amiodarone 200 daily, Lipitor 40 mg daily, Continue oral anticoagulation and amiodarone Monitor the kidney function and electrolytes and hemoglobin Overall prognosis is guarded Apparently patient had some provide reaction with IV. Will avoid using Lasix for diuresis. Consider other diuretic regimen for her when needed. Currently she is euvolemic. Consider signing off in next 24 to 48 hours Objective - Vital Signs Vital signs: Vital Signs Temp 99.2 F 03/10/25 20:37 Pulse 103 H 03/10/25 20:37 Resp 18 03/10/25 20:37 BP 104/66 03/10/25 20:37 Pulse Ox 97 03/10/25 20:37 FiO2 35 03/04/25 09:19 Intake & Output 03/10/25 03/10/25 03/11/25 06:59 18:59 06:59 Intake Total 120 1080 Output Total 575 200 Balance 120 505 -200 Weight 55 kg Intake: Oral 120 1080 Output: Urine 575 200 Other: Voiding Method Indwelling Catheter Indwelling Catheter Indwelling Catheter ABP, PAP, CO, CI - Last Documented Arterial Blood Pressure 90/74 - Labs CBC & Chem 7: 03/10/25 05:50 03/10/25 05:50 Labs: Abnormal Lab Results - Last 24 Hours (Table) 03/10/25 03/10/25 03/10/25 Range/Units 05:50 05:50 19:59 RBC 2.87 L (4.10-5.20) 10*6/uL Hgb 7.9 L (12.0-15.0) g/dL Hct 26.1 L (37.2-46.3) % MCHC 30.3 L (32.0-37.0) g/dL Plt Count 502 H (140-440) 10*3/uL Eosinophils # 1.38 H (0.04-0.35) 10*3/uL Sodium 147 H (137-145) mmol/L Chloride 112 H (98-107) mmol/L Glucose 73 L (74-99) mg/dL POC Glucose (mg/dL) 224 H (70-110) mg/dL Microbiology - Last 24 Hours (Table) 03/08/25 14:30 Blood Culture - Preliminary Blood 03/08/25 15:00 Catheter Tip Culture - Final Catheter Tip
--- NOTE | 2025-03-11 00:40 | P.PN ---
Subjective Progress Note Date: 03/10/25 03/10/2025: patient was seen for a follow-up. Patient is laying in the bed. She appears to be back to baseline. Patient is fully alert and awake. No further seizures reported. Patient wants to go home. She states that her baby( youngest child has arrived home), and she wants to go home to meet her "baby". 03/09/2025: Patient was seen for a follow-up. Patient was sleeping. When I woke her up, patient started acting very unusual. The music was on on the TV and she started moving her head in the shoulders like dancing with the music. Then she started showing me tongue for no reason. She was smiling and acted very strange. Did not much cooperate with examination. Patient is definitely much more alert and awake as compared to yesterday. Patient is off cefepime. 03/08/2025: Neurology was reconsulted for worsening mental status. Came to see patient, she is very lethargic, not much responding. She continues to have blisters and pemphigoid rash. 03/04/2025: Patient was seen for a follow-up. Patient is extubated. She is fully alert and awake. Patient's daughter was also present by the bedside and patient's nurse was also present. Patient's rash is much improved. It was felt the rash was likely related to Lasix. Patient tells me that she has 2 daughters. One of them resembles her. 02/23/2025: Patient was seen for follow-up. She is now in the ICU. Patient apparently had episode of unresponsive in the morning. Patient was unresponsive to sternal rub with agonal breathing. Heart rate was 120, blood pressure 120/78, saturation 57%. Patient was intubated at 3:32 AM and transferred to ICU. Patient's chest x-ray showed multifocal airspace opacities. Pulmonary and critical care suspecting acute hypoxic respiratory failure, likely secondary to acute pulmonary edema. Patient has developed dense and diffuse bilateral pulmonary consolidation and the patient was severely hypoxic, failed BiPAP therapy and patient was intubated. Pneumonia is felt doubtful. Patient does have CHF with cardiomyopathy with LV dysfunction with EF of 30 to 35%. Patient has paroxysmal atrial fibrillation, anticoagulated with Eliquis. Objective - Vital Signs Vital signs: Vital Signs Temp 98.4 F 03/10/25 11:38 Pulse 77 03/10/25 11:38 Resp 17 03/10/25 11:38 BP 85/49 03/10/25 11:38 Pulse Ox 97 03/10/25 11:38 FiO2 35 03/04/25 09:19 Intake & Output 03/09/25 03/10/25 03/10/25 18:59 06:59 18:59 Intake Total 118 120 720 Output Total 250 575 Balance -132 120 145 Weight 55 kg Intake: Oral 118 120 720 Output: Urine 250 575 Other: Voiding Method Indwelling Catheter Indwelling Catheter ABP, PAP, CO, CI - Last Documented Arterial Blood Pressure 90/74 - Exam As above. Patient continues to have rash. mentation much better. Patient states it is 01/27/2017. Speech and language functions are normal. She knows that she is in [facility]. She knows name of the current president. - Labs CBC & Chem 7: 03/10/25 05:50 03/10/25 05:50 Labs: Abnormal Lab Results - Last 24 Hours (Table) 03/09/25 03/10/25 03/10/25 Range/Units 19:52 05:50 05:50 RBC 2.87 L (4.10-5.20) 10*6/uL Hgb 7.9 L (12.0-15.0) g/dL Hct 26.1 L (37.2-46.3) % MCHC 30.3 L (32.0-37.0) g/dL Plt Count 502 H (140-440) 10*3/uL Eosinophils # 1.38 H (0.04-0.35) 10*3/uL Sodium 147 H (137-145) mmol/L Chloride 112 H (98-107) mmol/L Glucose 73 L (74-99) mg/dL POC Glucose (mg/dL) 117 H (70-110) mg/dL Microbiology - Last 24 Hours (Table) 03/08/25 15:00 Catheter Tip Culture - Final Catheter Tip 03/08/25 14:30 Blood Culture - Preliminary Blood Assessment and Plan Assessment: * Altered mental status, likely due to toxic metabolic encephalopathy. Probable due to cephalosporin toxicity. Patient is off cefepime. Mentation is back to baseline. * Acute respiratory failure due to acute pulmonary edema, resolved. * Status post accidental fall due to losing balance. Patient denies any presyncopal symptoms, loss of consciousness. She is positive it was not a seizure, just accidental fall due to losing balance. * History of CVA with residual spastic left hemiparesis. * Bullous pemphigoid mainly over lower extremities. Follows up with dermatology. [place] is related to Lasix. * Seizure disorder for long time, seizures in remission since 2009--no further seizures. * History of Atrial Fibrillation, on Eliquis. 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 * History of pacemaker. * CHF Plan: * Patient's mentation is back to baseline. Patient probably had cephalosporin neurotoxicity, which has resolved since stopping cefepime. * Repeat EEG was performed 03/08/2025. It was abnormal due to presence of background slowing of moderate to severe degree as well as presence of triphasic waves. This is suggestive of generalized cerebral dysfunction as can be seen with toxic metabolic encephalopathy or related to diffuse structural brain abnormality. This pattern can also be seen with cephal osporin neurotoxicity. Follow-up EEG recommended as clinically indicated. Discussed with ID, cefepime has been discontinued. We will follow patient closely. No indication to repeat EEG, as mentation is back to baseline. * CT head 02/23/2025 revealed stable remote right large MCA territory infarct with encephalomalacia again seen. Remote left frontal lobe infarct with encephalomalacia. Additional small regions of encephalomalacia from prior injury involving the bilateral cerebellum. These are all old findings. Nonspecific white matter changes, likely secondary to chronic small vessel ischemic disease. * Initial EEG 02/28/2025: Is abnormal. The background slowing is suggestive of mild encephalopathy. There is no focal slowing, epileptiform discharge or seizure on the EEG. * CTA of head and neck revealed no evidence of dissection of the cervical internal carotid arteries or vertebral arteries or any evidence of significant stenosis at the carotid bifurcations. Moderate stenosis involving the cavernous portion of the internal carotid arteries bilaterally secondary to calcified plaque. No evidence of intracranial aneurysm. * Continue Eliquis 5 mg twice daily for stroke prevention from A-fib. * Hemoglobin A1c 5.6, fasting lipid panel with cholesterol 102, LDL 48, HDL 36 and triglycerides 86. Lipids are well-controlled. * Continue seizure medications including Keppra 1500 mg twice daily, Tegretol 200 mg 3 times daily and gabapentin [address] Serrano has also started patient on Vimpat 50 mg twice a day for breakthrough seizure. We will stop Vimpat, as she was not taking it at home. * Tegretol 12.8 (4-12) and Keppra 50.6 (3-60). Patient states that she has been on these medications since 2008 tolerating it well. She does not believe rash is from these medications. Patient wishes to continue same dose of her seizure medications. * For bullous pemphigoid, patient to follow-up with her history tutor. Patient states history tutor mentioned that rash was from Lasix, which they have discontinued. However the rationale appears to be worse again. * Neurologically clear for discharge. Recommend follow-up with neurologist outpatient. Dr. Phuc Serrano to resume neurology service in the morning for any concerns.
--- NOTE | 2025-03-11 02:34 | P.PN ---
Subjective This is a pleasant 54 years old female who was recently diagnosed with bullous pemphigoid 3 months ago when she is sent from this facility to [facility], she had a biopsy followed by treatment with doxycycline and taper prednisone over 3 weeks. Also she has extensive long history of CHF and seizure disorder. She was previously in the ICU for severe sepsis. Now presents because of generalized weakness. Patient states she went and fell today while she was trying to get up to go to the restroom she found a green chair on her way she was too weak to move with so she fell on her buttocks she could not get up as usual so she called the family who helped her and called EMS. Patient stayed on the floor for about 25 minutes as she explains. Denies any abdominal pain vomiting or diarrhea Denies dysuria urgency but states she has not been since yesterday and she has been drinking a lot of water for this reason Denies chest pain or dyspnea or coughing. No headache dizziness She is a known case of previous stroke and severe left hemiparesis, patient states it is worse than before this time. Also there was some concern from some slurred speech but no double vision. Patient complains from feeling swollen in her legs She has extensive bullous disease, majority of them are ruptured throughout her trunk and extremities and there is surrounding with erythema more extensive edema in the lower extremities bilaterally. However there is no purulent discharge. No significant tenderness in this erythematous area Her top taper machine Dr. Noriega neurologist is Dr. quiroz Patient with no fever blood pressure slightly on the low side but patient is symptomatic Blood pressure is fluctuation slightly on the low side Hemoglobin 10 WBC normal 8.6. Rest of labs unremarkable including electrolytes proBNP 1740 CT of the head and neck showing moderate stenosis of bilateral internal carotid arteries CT of the brain showing remote right large MCA territory infarct with encephalomalacia and remote left frontal infarct with encephalomalacia and bilateral cerebellar encephalomalacia Chest x-ray showing mild interstitial prominence may be bronchitis rule out mild pulmonary vascular congestion 02/21 Patient awake alert She looks hypovolemic with positive orthostatic vitals, yesterday we will give her a bolus of 500 cc. Albumin dropped from 2.7 down to 2.0. Patient has slightly worse leg swelling. She has multiple friable and ruptured bullae on the trunk and extremities with mild erythema surrounding these bullae especially in the lower extremities. These are chronic for the last 3 months diagnosed with bullous pemphigoid. Patient states that she took the steroids and that did not help much. She denies chest pain or dyspnea. No abdominal pain or vomiting. Patient currently not on antibiotics per ID team recommendation to keep monitoring while off antibiotics. No fever. Patient was on doxycycline for her bullous lesions at [facility] not sure if she needed for now, keep holding doxycycline. Cardiology is going to evaluate the patient. Neurology service also on the case however patient has chronic hemiplegia, and this morning she is not sure if it is left hemiplegia is at baseline or worse, however is severe and does not make much difference. No slurred speech no blurry vision. 02/22 Patient is looks tired lethargic Kirlin in bed and was shivering in the morning and developing fever also she is tachycardic and blood pressure is soft No chest pain or abdominal pain Still has erythema and swelling of both lower extremities suspected secondary to cellulitis, MRSA suspected and currently she is on IV vancomycin with infectious disease team recommendation She has good urine output and creatinine within the reference range. We give her a bolus of albumin given her hypoalbuminemia also if blood pressure remains low may consider a bolus of normal saline later on Midodrine was prescribed on admission as needed for hypotension but was not given by staff despite low blood pressure therefore we are going to switch it to standing dose Monitor labs and electrolytes and vitals closely 02/23 Patient yesterday was found unresponsive on the floor and there was foam in her mouth A team was called Patient got intubated and placed on mechanical ventilation transferred to the ICU. Patient currently intubated and sedated. Yesterday patient was hypotensive and tachycardic and altered mental status. This morning required Levophed 02/23 Patient remains in the ICU intubated and sedated, PEEP is 5 improved Female family member at bedside. Patient earlier was able to work She opened eyes and tried to communicate and she could recognize the family member, she was anxious as per family Patient required small dose of pressors earlier Continue on same antibiotics as per infectious disease team Off IV fluid Echocardiogram showed ejection fraction of 25 to 30% Increased left ventricular mass with very severe LV dysfunction Sputum culture growing Staph aureus pansensitive he Patient's rash of the lower extremity is significantly improved Discussed the case with pulmonary team 03/04 Resume the care of the patient today Patient remains in the ICU, she remains intubated on mechanical ventilation, currently this morning she is off sedation, she opens eyes spontaneously and to verbal commands she follows commands. She is not getting any pressors, currently getting D5W at 50 mL/h Also patient on broad-spectrum antibiotics of Eraxis, cefepime and IV vancomycin Repeat chest x-ray this morning showing significant improvement in her bilateral consolidation and pulmonary edema since To the ICU Pulmonary team are trying to continue with of sedation for possible extubation today 03/05 Patient is s/p extubation yesterday. Today she is fully awake oriented able to communicate, she follows command. She does not look in distress. She has mild hoarseness of voice which is expected. Also she will be tested for her ability to tolerate diet and dysphagia No chest pain no abdominal pain She still has fever around 100. She remains on antibiotic IV vancomycin and cefepime and Eraxis and ID team following closely Patient can be moved out of the ICU once cleared by critical care team 03/06 Patient still have fever spikes around 100 degree. She remains on broad- spectrum antibiotics with IV vancomycin, cefepime and Eraxis Multiple skin lesions very top and healed nicely. No chest pain or dyspnea or diarrhea. Patient has not started eating yet, she needs to pass swallow evaluation which is pending now She developed few seconds of nonsustained V. tach, also there was suspicious for torsade the point however QTc is 421 this morning on EKG Potassium 3.7 been replaced Monitor magnesium level as well 03/07 No events overnight Sleep fairly well this morning Denies any other new complaint She has difficult peripheral IV line placement, therefore we Central line for now. Patient remains in the ICU as MedSurg overflow to select unit She has been having fever continuously however over the last 24 to 48 hours she remains afebrile Vitals are stable WBC and hemoglobin stable as well as BMP is unremarkable Will ask for PT/OT evaluation as part of the discharge plan Patient probably will need rehab upon discharge Remains on IV antibiotics for now 03/08 Patient is more confused today this morning. She is calm does not look in distress. She has occasional cough and itching in the left upper extremity from his skin lesions She is still mildly tachycardic she still has low-grade fever 99.9. Blood pressure stable and saturation of oxygen is acceptable Monitor labs She remains on antibiotic with IV vancomycin and cefepime and Eraxis 03/09 Patient awake today but she does not answer questions, she is not talking. Patient could follow simple commands but not all of them for example when asked she open her mouth but would not stick her tongue out if she asked for. She does not look in distress breathing a quiet. In the morning she was refusing medication but looks like later on she agrees Patient is not eating much. There is nutritional consult over the weekend. Replacement to be evaluated probably on Tuesday. Skin lesions improved significantly 03/10 Patient today is awake alert, slowly to respond but she is oriented to time place person Also patient shows motivation to pursue therapy No abdominal pain no abdominal distention wounds are healing. Objective - Vital Signs Vital signs: Vital Signs Temp 98.4 F 03/10/25 11:38 Pulse 77 03/10/25 11:38 Resp 17 03/10/25 11:38 BP 85/49 03/10/25 11:38 Pulse Ox 97 03/10/25 11:38 FiO2 35 03/04/25 09:19 Intake & Output 03/09/25 03/10/25 03/10/25 18:59 06:59 18:59 Intake Total 118 120 360 Output Total 250 Balance -132 120 360 Weight 55 kg Intake: Oral 118 120 360 Output: Urine 250 Other: Voiding Method Indwelling Catheter Indwelling Catheter ABP, PAP, CO, CI - Last Documented Arterial Blood Pressure 90/74 - Exam GENERAL: The patient is awake alert and oriented x 3, not in distress. HEENT: Pupils are round and equally reacting to light. EOMI. No scleral icterus. No conjunctival pallor. Normocephalic, atraumatic. No pharyngeal erythema. No th yromegaly. CARDIOVASCULAR: S1 and S2 present. No murmurs, rubs, or gallops. PULMONARY: Chest is clear to auscultation, no wheezing , no crackles. ABDOMEN: Soft, nontender, nondistended, normoactive bowel sounds. No palpable organomegaly. MUSCULOSKELETAL: No joint swelling or deformity. EXTREMITIES: No cyanosis, clubbing, or pedal edema. -Multiple eroded bullae and friable bullae with surrounding erythema throughout trunk and extremities ( bullous pemphigoid ), significantly improved and the almost dried up -NEUROLOGICAL: Gross neurological examination did not reveal any focal deficits. sever left hemiparesis (old per pt) SKIN: No rashes. no petechiae. - Labs CBC & Chem 7: 03/10/25 05:50 03/10/25 05:50 Labs: Abnormal Lab Results - Last 24 Hours (Table) 03/09/25 03/10/25 03/10/25 Range/Units 19:52 05:50 05:50 RBC 2.87 L (4.10-5.20) 10*6/uL Hgb 7.9 L (12.0-15.0) g/dL Hct 26.1 L (37.2-46.3) % MCHC 30.3 L (32.0-37.0) g/dL Plt Count 502 H (140-440) 10*3/uL Eosinophils # 1.38 H (0.04-0.35) 10*3/uL Sodium 147 H (137-145) mmol/L Chloride 112 H (98-107) mmol/L Glucose 73 L (74-99) mg/dL POC Glucose (mg/dL) 117 H (70-110) mg/dL Microbiology - Last 24 Hours (Table) 03/08/25 14:30 Blood Culture - Preliminary Blood 03/08/25 15:00 Catheter Tip Culture - Preliminary Catheter Tip Assessment and Plan Assessment: seizure disorder Severe sepsis seizure disorder Poor oral intake Acute hypoxic respiratory failure s/p intubation/extubated on 03/04 Bilateral lower extremity cellulitis thought secondary to MRSA nonsustained V. tach Hypotension secondary to above, improved Worsening weakness on the left side associated with fall without syncope and transient slurred speech and some swallowing difficulty, rule out new stroke or worsening stroke Bullous pemphigoid with multiple eroded and friable bullae throughout the trunk and extremities with surrounding erythema on doxycycline and prednisone previously Cardiomyopathy with ejection fraction 35% Coronary artery disease History of PE History of stroke with persistent hemiplegia Moderate bilateral internal carotid artery stenosis Seizure disorder with history of breakthrough seizure Generalized weakness Plan: Patient is s/p extubation Follow-up swallow evaluation Monitor potassium to keep level above 4 and magnesium keep level above 2 Pulmonary/critical care team consult Nutrition consult Continue with IV vancomycin and f IV cefepime and Eraxis per ID team Patient follow-up with clinical services assistant as an outpatient for her bullous lesions Cardiology team consulted for her severe cardiomyopathy Wound team consult Neurology team consult, continue with current seizure medication neurologist, currently on Tegretol 200 mg gabapentin 600 mg Vimpat 50 mg and Keppra 1500 mg Labs and medication were reviewed.. Continue same treatment. Continue with symptomatic treatment. Resume home medication. Monitor labs and vitals. DVT and GI prophylaxis. Further recommendations as per clinical course of the patient DVT prophylaxis: Eliquis GI Prophylaxis: Pepcid PT/OT: Pending Prognosis is guarded
[2025-03-11 06:04] LABS: Glucose,Whole Blood 103 mg/dL (70-110)
[2025-03-11 11:35] LABS: Glucose,Whole Blood 207 mg/dL (70-110)
--- NOTE | 2025-03-11 13:52 | P.PN ---
Subjective Progress Note Date: 03/11/25 This is a 54-year-old female patient who follows in the office with Dr. Berrios. She has a history of congestive heart failure, cardiomyopathy, paroxysmal atrial fibrillation and AICD implantation. She presented to the hospital with acute left-sided weakness and falling at home. She was sedated, intubated and placed on mechanical ventilator. She was initially admitted on 20 February. Echocardiogram during this admission showed severe LV systolic dysfunction with an ejection fraction of 25 to 30%. She is being followed closely by neurology. She was extubated on 03/04/2025. She did have a run of nonsustained VT several days ago but has had no recurrence. Patient was seen and examined sitting up in a chair. She does not appear to be in any acute distress. PHYSICAL EXAM: VITAL SIGNS: Reviewed. GENERAL: In no acute distress. Appears older than stated age. Patient with multiple abrasions HEENT:Neck supple. No JVD or thyromegaly LUNGS: Respirations even and unlabored. Lungs diminished air entry bilaterally. HEART: Regular rate and rhythm. S1 and S2 heard. ABDOMEN: Soft. Nondistended. Nontender. EXTREMITIES: Normal range of motion. No clubbing or cyanosis. Peripheral pulses intact. No lower extremity edema NEUROLOGIC: Awake and alert. Oriented to person and place. Assessment Acute hypoxic respiratory failure Severe cardiomyopathy Heart failure with reduced ejection fraction Frequent PVCs and NSVT's Paroxysmal atrial fibrillation, Sinus rhythm at this point Multiple comorbid conditions including anemia Plan: From cardiology's perspective medications were reviewed and we will continue the same. Plan is for patient to be discharged soon to [facility]. At this time we will follow the patient on an as-needed basis. Please do not hesitate to contact us with questions. [employer] note has been reviewed, I agree with a documented findings and plan of care. Patient was seen and examined. Objective - Vital Signs Vital signs: Vital Signs Temp 98.6 F 03/11/25 08:03 Pulse 95 03/11/25 11:33 Resp 18 03/11/25 11:33 BP 91/58 03/11/25 11:33 Pulse Ox 99 03/11/25 11:33 FiO2 35 03/04/25 09:19 Intake & Output 03/10/25 03/11/25 03/11/25 18:59 06:59 18:59 Intake Total 1080 600 Output Total 575 600 Balance 505 -600 600 Weight 54.5 kg Intake: Oral 1080 600 Output: Urine 575 600 Other: Voiding Method Indwelling Catheter Indwelling Catheter Indwelling Catheter # Bowel Movements 1 ABP, PAP, CO, CI - Last Documented Arterial Blood Pressure 90/74 - Labs CBC & Chem 7: 03/10/25 05:50 03/10/25 05:50 Labs: Abnormal Lab Results - Last 24 Hours (Table) 03/10/25 03/11/25 Range/Units 19:59 11:33 POC Glucose (mg/dL) 224 H 207 H (70-110) mg/dL Microbiology - Last 24 Hours (Table) 03/08/25 14:30 Blood Culture - Preliminary Blood 03/08/25 15:00 Catheter Tip Culture - Final Catheter Tip
[2025-03-11 16:37] LABS: Glucose,Whole Blood 174 mg/dL (70-110)
--- NOTE | 2025-03-11 18:45 | P.PN ---
Subjective Progress Note Date: 03/11/25 54-year-old female patient who was originally seen in the intensive care unit because of acute respiratory distress, hypoxemia and diminished level of consciousness. The patient was originally hospitalized on 02/20/2025 for generalized weakness and a fall. She has multiple medical problems and comorbidities. I was involved in her care back in 2021 and at that time the patient had a COVID-19 related pneumonia with prolonged respiratory failure requiring a tracheostomy tube insertion and subsequent removal to facilitate her weaning off the mechanical ventilator. She is also known to have coronary artery disease and cardiac catheterization back in 2008 showed minimal CAD, cardiomyopathy and the most recent echocardiogram from August 2023 showed an ejection fraction of 35 to 40% and global LV hypokinesis. The patient also has paroxysmal atrial fibrillation she has a AICD in place. 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 On today's evaluation of 03/11/2025, the patient is being seen for a follow-up. On today's evaluation, the patient is sitting up on a chair. The patient does not seem to be in acute respiratory distress. Oxygenation is stable and the patient is currently on room air oxygen with a pulse ox of 97%. The patient has severe cardiomyopathy with impaired LV function with an ejection fraction of 25 to 30%. The patient also has approximator fibrillation the patient has an AICD in place. The patient was intubated and subsequently extubated on 03/04/2025. The patient has runs of nonsustained VT without any subsequent recurrence. Patient also has paroxysmal atrial fibrillation. Current rhythm is sinus. The patient remains on anticoagulation with Eliquis 5 mg p.o. twice a day. The patient remains on amiodarone 200 mg p.o. daily and metoprolol 12.5 mg p.o. twice daily. The patient is also on IV daptomycin per IDs recommendation. Catheter tip from 03/08/2025 was negative in the blood cultures on 03/08/2025 is showing no growth. The patient also suffers from bullous pemphigoid skin disease. She has also previous history of CVA with large MCA distribution infarct and encephalomalacia and remote left frontal infarct and encephalomalacia. No diuretics for now. Most recent blood work shows a hemoglobin 7.9 with a white cell count of 6.8 and a sodium that is 147 with a BUN of 16 and a creatinine of 0.5. Objective - Vital Signs Vital signs: Vital Signs Temp 98.6 F 03/11/25 08:03 Pulse 95 03/11/25 11:33 Resp 18 03/11/25 11:33 BP 91/58 03/11/25 11:33 Pulse Ox 99 03/11/25 11:33 FiO2 35 03/04/25 09:19 Intake & Output 03/10/25 03/11/25 03/11/25 18:59 06:59 18:59 Intake Total 1080 120 Output Total 575 600 Balance 505 -600 120 Weight 54.5 kg Intake: Oral 1080 120 Output: Urine 575 600 Other: Voiding Method Indwelling Catheter Indwelling Catheter Indwelling Catheter # Bowel Movements 1 ABP, PAP, CO, CI - Last Documented Arterial Blood Pressure 90/74 - Exam GENERAL EXAM: Awake, alert, thin, 54-year-old female, on room air oxygen, in no apparent distress. HEAD: Normocephalic. EYES: Normal reaction of pupils, equal size. NOSE: Clear with pink turbinates. THROAT: No erythema or exudates. NECK: No masses, no JVD. CHEST: No chest wall deformity. LUNGS: Equal air entry with few scattered rhonchi, crackles in the posterior bases. CVS: S1 and S2 normal with no audible murmur, regular rhythm. ABDOMEN: No hepatosplenomegaly, normal bowel sounds, no guarding or rigidity. SPINE: No scoliosis or deformity SKIN: Multiple healing skin lesions CENTRAL NERVOUS SYSTEM: No focal deficits, tone is normal in all 4 extremities. EXTREMITIES: There is no peripheral edema. No clubbing, no cyanosis. Peripheral pulses are intact. - Labs CBC & Chem 7: 03/10/25 05:50 03/10/25 05:50 Labs: Abnormal Lab Results - Last 24 Hours (Table) 03/10/25 03/11/25 Range/Units 19:59 11:33 POC Glucose (mg/dL) 224 H 207 H (70-110) mg/dL Microbiology - Last 24 Hours (Table) 03/08/25 14:30 Blood Culture - Preliminary Blood 03/08/25 15:00 Catheter Tip Culture - Final Catheter Tip Assessment and Plan Plan: Acute hypoxic respiratory failure secondary to acute pulmonary edema, recovered and on room air, post intubation mechanical ventilation the patient was extubated on 03/04/2025 Systolic congestive heart failure ejection fraction of 25 to 30% Left lung opacification noted on 02/27/2025, requiring bronchoscopy and extraction of mucous plug noted in the left upper lobe., Resolved. Multifocal opacities noted on previous chest x-ray, suggestive of MSSA pneumonia with positive sputum cultures for MSSA. Follow-up cultures showed no growth. Follow-up chest x-ray shows improvement Bullous pemphigoid disease with multiple skin wounds and eroded and friable bulla throughout the upper and lower extremities and the trunk. No active area of cellulitis at this point was noted. 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 twice a day Prednisone 10 mg p.o. daily Plan is for [facility] at discharge We will continue to follow
[2025-03-11 20:09] LABS: Glucose,Whole Blood 195 mg/dL (70-110)
[2025-03-12 05:55] LABS: Glucose,Whole Blood 92 mg/dL (70-110)
--- NOTE | 2025-03-12 07:11 | P.PN ---
Subjective Progress Note Date: 03/11/25 This is a pleasant 54 years old female who was recently diagnosed with bullous pemphigoid 3 months ago when she is sent from this facility to [facility], she had a biopsy followed by treatment with doxycycline and taper prednisone over 3 weeks. Also she has extensive long history of CHF and seizure disorder. She was previously in the ICU for severe sepsis. Now presents because of generalized weakness. Patient states she went and fell today while she was trying to get up to go to the restroom she found a green chair on her way she was too weak to move with so she fell on her buttocks she could not get up as usual so she called the family who helped her and called EMS. Patient stayed on the floor for about 25 minutes as she explains. Denies any abdominal pain vomiting or diarrhea Denies dysuria urgency but states she has not been since yesterday and she has been drinking a lot of water for this reason Denies chest pain or dyspnea or coughing. No headache dizziness She is a known case of previous stroke and severe left hemiparesis, patient states it is worse than before this time. Also there was some concern from some slurred speech but no double vision. Patient complains from feeling swollen in her legs She has extensive bullous disease, majority of them are ruptured throughout her trunk and extremities and there is surrounding with erythema more extensive edema in the lower extremities bilaterally. However there is no purulent discharge. 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 Noriega neurologist is Dr. quiroz Patient with no fever blood pressure slightly on the low side but patient is symptomatic Blood pressure is fluctuation slightly on the low side Hemoglobin 10 WBC normal 8.6. Rest of labs unremarkable including electrolytes proBNP 1740 CT of the head and neck showing moderate stenosis of bilateral internal carotid arteries CT of the brain showing remote right large MCA territory infarct with encephalomalacia and remote left frontal infarct with encephalomalacia and bilateral cerebellar encephalomalacia Chest x-ray showing mild interstitial prominence may be bronchitis rule out mild pulmonary vascular congestion 02/21 Patient awake alert She looks hypovolemic with positive orthostatic vitals, yesterday we will give her a bolus of 500 cc. Albumin dropped from 2.7 down to 2.0. Patient has slightly worse leg swelling. She has multiple friable and ruptured bullae on the trunk and extremities with mild erythema surrounding these bullae especially in the lower extremities. These are chronic for the last 3 months diagnosed with bullous pemphigoid. Patient states that she took the steroids and that did not help much. She denies chest pain or dyspnea. No abdominal pain or vomiting. Patient currently not on antibiotics per ID team recommendation to keep monitoring while off antibiotics. No fever. Patient was on doxycycline for her bullous lesions at [facility] not sure if she needed for now, keep holding doxycycline. Cardiology is going to evaluate the patient. Neurology service also on the case however patient has chronic hemiplegia, and this morning she is not sure if it is left hemiplegia is at baseline or worse, however is severe and does not make much difference. No slurred speech no blurry vision. 02/22 Patient is looks tired lethargic Kirlin in bed and was shivering in the morning and developing fever also she is tachycardic and blood pressure is soft No chest pain or abdominal pain Still has erythema and swelling of both lower extremities suspected secondary to cellulitis, MRSA suspected and currently she is on IV vancomycin with infectious disease team recommendation She has good urine output and creatinine within the reference range. We give her a bolus of albumin given her hypoalbuminemia also if blood pressure remains low may consider a bolus of normal saline later on Midodrine was prescribed on admission as needed for hypotension but was not given by staff despite low blood pressure therefore we are going to switch it to standing dose Monitor labs and electrolytes and vitals closely 02/23 Patient yesterday was found unresponsive on the floor and there was foam in her mouth A team was called Patient got intubated and placed on mechanical ventilation transferred to the ICU. Patient currently intubated and sedated. Yesterday patient was hypotensive and tachycardic and altered mental status. This morning required Levophed 02/23 Patient remains in the ICU intubated and sedated, PEEP is 5 improved Female family member at bedside. Patient earlier was able to work She opened eyes and tried to communicate and she could recognize the family member, she was anxious as per family Patient required small dose of pressors earlier Continue on same antibiotics as per infectious disease team Off IV fluid Echocardiogram showed ejection fraction of 25 to 30% Increased left ventricular mass with very severe LV dysfunction Sputum culture growing Staph aureus pansensitive he Patient's rash of the lower extremity is significantly improved Discussed the case with pulmonary team 03/04 Resume the care of the patient today Patient remains in the ICU, she remains intubated on mechanical ventilation, currently this morning she is off sedation, she opens eyes spontaneously and to verbal commands she follows commands. She is not getting any pressors, currently getting D5W at 50 mL/h Also patient on broad-spectrum antibiotics of Eraxis, cefepime and IV vancomycin Repeat chest x-ray this morning showing significant improvement in her bilateral consolidation and pulmonary edema since To the ICU Pulmonary team are trying to continue with of sedation for possible extubation today 03/05 Patient is s/p extubation yesterday. Today she is fully awake oriented able to communicate, she follows command. She does not look in distress. She has mild hoarseness of voice which is expected. Also she will be tested for her ability to tolerate diet and dysphagia No chest pain no abdominal pain She still has fever around 100. She remains on antibiotic IV vancomycin and cefepime and Eraxis and ID team following closely Patient can be moved out of the ICU once cleared by critical care team 03/06 Patient still have fever spikes around 100 degree. She remains on broad- spectrum antibiotics with IV vancomycin, cefepime and Eraxis Multiple skin lesions very top and healed nicely. No chest pain or dyspnea or diarrhea. Patient has not started eating yet, she needs to pass swallow evaluation which is pending now She developed few seconds of nonsustained V. tach, also there was suspicious for torsade the point however QTc is 421 this morning on EKG Potassium 3.7 been replaced Monitor magnesium level as well 03/07 No events overnight Sleep fairly well this morning Denies any other new complaint She has difficult peripheral IV line placement, therefore we Central line for now. Patient remains in the ICU as MedSurg overflow to select unit She has been having fever continuously however over the last 24 to 48 hours she remains afebrile Vitals are stable WBC and hemoglobin stable as well as BMP is unremarkable Will ask for PT/OT evaluation as part of the discharge plan Patient probably will need rehab upon discharge Remains on IV antibiotics for now 03/08 Patient is more confused today this morning. She is calm does not look in d istress. She has occasional cough and itching in the left upper extremity from his skin lesions She is still mildly tachycardic she still has low-grade fever 99.9. Blood pressure stable and saturation of oxygen is acceptable Monitor labs She remains on antibiotic with IV vancomycin and cefepime and Eraxis 03/09 Patient awake today but she does not answer questions, she is not talking. Patient could follow simple commands but not all of them for example when asked she open her mouth but would not stick her tongue out if she asked for. She does not look in distress breathing a quiet. In the morning she was refusing medication but looks like later on she agrees Patient is not eating much. There is nutritional consult over the weekend. Replacement to be evaluated probably on Tuesday. Skin lesions improved significantly 03/10 Patient today is awake alert, slowly to respond but she is oriented to time place person Also patient shows motivation to pursue therapy No abdominal pain no abdominal distention wounds are healing. 03/11/2025 Patient is seen in follow-up today with multiple consultations following. Cardiology has evaluated the patient recommending to continue with current medi cation regimen and no further interventions planned with outpatient follow-up recommended. Patient also being followed by pulmonary along with infectious disease and awaiting finalized catheter tip cultures and blood cultures to determine appropriate antibiotics. Eraxis has been discontinued and patient is maintained on daptomycin. Will discuss further with infectious disease if patient requires antibiotics on discharge. Plan is to go to [facility] on discharge and insurance authorization is submitted and pending. Patient will undergo swallow study tomorrow to assess liquids. Patient is tolerating oral diet with no difficulties. Patient to continue with local wound care for the upper and lower extremities and outpatient follow-up. Review of systems: Constitutional: No reports of fatigue, fever, or chills Cardiovascular: No reports of chest pain or palpitations Respiratory: No reports of shortness of breath or cough GI: No reports of nausea, vomiting, or diarrhea : No reports of dysuria or retention Neurovascular: reports of weakness All medications have been reviewed Physical exam: GENERAL: The patient is awake alert and oriented x 3, not in distress. Elderly appearing, chronically ill-appearing, thin built HEENT: Pupils are round and equally reacting to light. EOMI. No scleral icterus. No conjunctival pallor. Normocephalic, atraumatic. No pharyngeal erythema. No t hyromegaly. CARDIOVASCULAR: S1 and S2 present. No murmurs, rubs, or gallops. PULMONARY: Chest is clear to auscultation, no wheezing , no crackles. ABDOMEN: Soft, thin, nontender, nondistended, normoactive bowel sounds. No palpable organomegaly. MUSCULOSKELETAL: No joint swelling or deformity. EXTREMITIES: No cyanosis, clubbing, or pedal edema. -Multiple eroded bullae and friable bullae with surrounding erythema throughout trunk and extremities ( bullous pemphigoid ), significantly improved and the almost dried up -NEUROLOGICAL: Gross neurological examination did not reveal any focal deficits. severe left hemiparesis (old per pt), generalized weakness, gait dysfunction SKIN: No rashes. no petechiae. Assessment: Severe sepsis, on admission secondary to MSSA pneumonia with positive sputum cultures Moderate protein calorie malnutrition secondary to poor oral intake Acute hypoxic respiratory failure s/p intubation/extubated on 03/04 likely secondary to MSSA pneumonia Bilateral lower extremity cellulitis, secondary to MRSA nonsustained V. tach Hypotension secondary to above, improved Worsening weakness on the left side associated with fall without syncope and transient slurred speech and some swallowing difficulty, ruled out new stroke or worsening stroke Bullous pemphigoid with multiple eroded and friable bullae throughout the trunk and extremities with surrounding erythema on doxycycline and prednisone previously Cardiomyopathy with ejection fraction 35% Coronary artery disease history History of PE History of stroke with persistent hemiplegia Moderate bilateral internal carotid artery stenosis Seizure disorder with history of breakthrough seizure Generalized weakness GI prophylaxis DVT prophylaxis Full code Plan: Patient is s/p extubation and being followed by pulmonary weaning FiO2 as tolerated Follow-up swallow evaluation to undergo reassessment with liquids. Patient is tolerating solid food although having difficulty and is maintained on thickened at this time Monitor potassium to keep level above 4 and magnesium keep level above 2 Nutrition consult Continue with IV antibiotics per ID recommendations. Eraxis discontinued. Will discuss with infectious disease once cultures have finalized to determine appropriate discharge antibiotics. Patient will be going to [facility] on discharge Patient follow-up with contracts administrator as an outpatient for her bullous lesions Cardiology team evaluated for her severe cardiomyopathy recommending continuing current medication regimen Wound team following and will need close outpatient follow-up Neurology team consult, continue with current seizure medication neurologist, currently on Tegretol 200 mg gabapentin 600 mg Vimpat 50 mg and Keppra 1500 mg Will discuss with consultations including infectious disease regarding antibiotics on discharge and awaiting insurance authorization to [facility] with case management following Possible discharge planning in the next 24 to 48 hours Patient is high risk for readmissions given significant comorbidities The impression and plan of care has been dictated by Denia Mccormick, Nurse Practitioner as directed. Dr. Dian MD I have performed a history and examination and MDM of this patient, discussed the same with the dictator, and agree with the dictator's assessment and plan as written ,documented as a scribe. Based on total visit time, I have performed more than 50% of the visit. Objective - Vital Signs Vital signs: Vital Signs Temp 98.6 F 03/11/25 08:03 Pulse 92 03/11/25 08:03 Resp 18 03/11/25 08:03 BP 101/64 03/11/25 08:03 Pulse Ox 97 03/11/25 08:03 FiO2 35 03/04/25 09:19 Intake & Output 03/10/25 03/11/25 03/11/25 18:59 06:59 18:59 Intake Total 1080 Output Total 575 600 Balance 505 -600 Weight 54.5 kg Intake: Oral 1080 Output: Urine 575 600 Other: Voiding Method Indwelling Catheter Indwelling Catheter Indwelling Catheter # Bowel Movements 1 ABP, PAP, CO, CI - Last Documented Arterial Blood Pressure 90/74 - Labs CBC & Chem 7: 03/10/25 05:50 03/10/25 05:50 Labs: Abnormal Lab Results - Last 24 Hours (Table) 03/10/25 Range/Units 19:59 POC Glucose (mg/dL) 224 H (70-110) mg/dL Microbiology - Last 24 Hours (Table) 03/08/25 14:30 Blood Culture - Preliminary Blood 03/08/25 15:00 Catheter Tip Culture - Final Catheter Tip
[2025-03-12 07:19] LABS: African American GFR (CKD) >90 (>60 ml/min/1.73 sqM); Anion Gap 8 mmol/L; Blood Urea Nitrogen 22 mg/dL (7-17); Calcium 8.7 mg/dL (8.4-10.2); Carbon Dioxide 28 mmol/L (22-30); Chloride 104 mmol/L (98-107); Glucose 79 mg/dL (74-99); Magnesium 1.6 mg/dL (1.6-2.3); Non-African American GFR(CKD) >90 (>60 ml/min/1.73 sqM); Potassium 4.3 mmol/L (3.5-5.1); Sodium 140 mmol/L (137-145)
[2025-03-12 08:10] VITALS: TEMP 97.7
--- NOTE | 2025-03-12 11:36 | FL ---
Modified barium swallow. HISTORY: Dysphagia. Modified barium swallow was performed with the department of speech pathology. The patient was prese nted with various consistencies of barium. There is aspiration with thin liquid barium. Full report is to follow from the department of speech p athology. Impression: As above [facility], , 03/12/2025 11:34 AM
[2025-03-12 11:47] LABS: Glucose,Whole Blood 139 mg/dL (70-110)
--- NOTE | 2025-03-12 13:19 | XR ---
EXAMINATION TYPE: XR chest 1V portable DATE OF EXAM: 03/12/2025 12:32 PM COMPARISON: Chest radiographs from 03/16/2025. CLINICAL INDICATION: Female, 54 years old with history of eval for pneumonia; TECHNIQUE: XR chest 1V portable Frontal view of the chest. FINDINGS: Lungs/Pleura: There is no evidence of pleural effusion, focal consolidation, or pneumothorax. Pulmonary vascularity: Pulmonary vascular congestion. Heart/mediastinum: Cardiomediastinal silhouette is enlarged. Musculoskeletal: No acute osseous pathology. IMPRESSION: Cardiomegaly and mild pulmonary vascular congestion. Correlate with BNP for congestive heart failure. [facility], , 03/12/2025 1:16 PM
--- NOTE | 2025-03-12 13:39 | P.PN ---
Subjective Progress Note Date: 03/11/25 Principal diagnosis: Reason for follow-up is multiple skin lesion question of cellulitis and multiple antibiotic allergies Patient is a 54-year-old female with a past medical history significant for PE seizure disorder coronary artery disease has been diagnosed with bullous pemphigoid patient has been brought into the hospital concerning for weakness patient did have multiple skin lesions concerning for cellulitis prompting this consultation. On today's evaluation that is 03/11/2025, patient has been afebrile, patient is breathing comfortably and is currently on room air, patient denies having any chest pain and cough, patient denies nausea vomiting or diarrhea and no abdominal pain. No new lab has been obtained today did have normal white count yesterday Objective - Vital Signs Vital signs: Vital Signs Temp 98.6 F 03/11/25 08:03 Pulse 95 03/11/25 11:33 Resp 15 03/11/25 15:21 BP 102/67 03/11/25 15:21 Pulse Ox 97 03/11/25 15:21 FiO2 35 03/04/25 09:19 Intake & Output 03/10/25 03/11/25 03/11/25 18:59 06:59 18:59 Intake Total 1080 600 Output Total 575 600 350 Balance 505 -600 250 Weight 54.5 kg Intake: Oral 1080 600 Output: Urine 575 600 350 Other: Voiding Method Indwelling Catheter Indwelling Catheter Indwelling Catheter # Bowel Movements 1 ABP, PAP, CO, CI - Last Documented Arterial Blood Pressure 90/74 - Exam GENERAL DESCRIPTION: Middle-age female lying in bed in no distress RESPIRATORY SYSTEM: Unlabored breathing , decreased breath sounds at bases HEART: S1 S2 regular rate and rhythm , ABDOMEN: Soft , no tenderness SKIN: Multiple ulcerated lesions but no drainage - Labs CBC & Chem 7: 03/10/25 05:50 03/12/25 06:17 Labs: Abnormal Lab Results - Last 24 Hours (Table) 03/10/25 03/11/25 Range/Units 19:59 11:33 POC Glucose (mg/dL) 224 H 207 H (70-110) mg/dL Microbiology - Last 24 Hours (Table) 03/08/25 14:30 Blood Culture - Preliminary Blood 03/08/25 15:00 Catheter Tip Culture - Final Catheter Tip Assessment and Plan (1) Skin ulcer of multiple sites Current Visit: Yes Status: Acute Code(s): L98.499 - NON-PRESSURE CHRONIC ULCER OF SKIN OF SITES W UNSP SEVERITY SNOMED Code(s): 01085282 (2) Bullous pemphigoid Current Visit: Yes Status: Acute Code(s): L12.0 - BULLOUS PEMPHIGOID SNOMED Code(s): 33655833 (3) Allergy to multiple antibiotics Current Visit: No Status: Acute Code(s): Z88.1 - ALLERGY STATUS TO OTHER ANTIBIOTIC AGENTS SNOMED Code(s): 926856404 Plan: 1 Patient presented to hospital with fall due to generalized weakness and did have multiple skin lesion with outpatient diagnosis of bullous pemphigoid patient did have worsening of her respiratory status requiring intubation sputum culture positive for MSSA urine with E. coli drug-resistant E. coli sensitive to ceftriaxone 2patient did have worsening of respiratory status requiring reintubation bronchoscopy concerning for mucous plugging BAL culture so far negative patient subsequently has been resuscitated and has been extubated 3patient was noticed to have some purulent drainage from the right IJ when it was discontinued we did request for blood culture as well as catheter tip culture 4Patient remains to be afebrile and white count is normal catheter cultures so far negative blood culture pending we will continue with daptomycin Dictation was produced using [employer] dictation software. please excuse any grammatical, word or spelling errors. Time with Patient: Less than 30
--- NOTE | 2025-03-12 13:40 | P.PN ---
Subjective Progress Note Date: 03/12/25 Principal diagnosis: Reason for follow-up is multiple skin lesion question of cellulitis and multiple antibiotic allergies Patient is a 54-year-old female with a past medical history significant for PE seizure disorder coronary artery disease has been diagnosed with bullous pemphigoid patient has been brought into the hospital concerning for weakness patient did have multiple skin lesions concerning for cellulitis prompting this consultation. On today's evaluation that is 03/12/2025, Patient is afebrile this morning patient denies having any chest pain shortness of breath or cough, the patient is currently on room air, patient denies any abdominal pain no diarrhea no nausea no vomiting. The patient did have a creatinine 0.68 catheter culture negative blood cultures so far pending Objective - Vital Signs Vital signs: Vital Signs Temp 97.7 F 03/12/25 08:09 Pulse 96 03/12/25 11:21 Resp 15 03/12/25 11:21 BP 93/60 03/12/25 11:21 Pulse Ox 97 03/12/25 11:21 FiO2 35 03/04/25 09:19 Intake & Output 03/11/25 03/12/25 03/12/25 18:59 06:59 18:59 Intake Total 718 240 Output Total 625 225 500 Balance 93 -225 -260 Weight 56.5 kg Intake: Oral 718 240 Output: Urine 625 225 500 Other: Voiding Method Indwelling Catheter Indwelling Catheter Indwelling Catheter ABP, PAP, CO, CI - Last Documented Arterial Blood Pressure 90/74 - Exam GENERAL DESCRIPTION: Middle-age female lying in bed in no distress RESPIRATORY SYSTEM: Unlabored breathing , decreased breath sounds at bases HEART: S1 S2 regular rate and rhythm , ABDOMEN: Soft , no tenderness SKIN: Multiple ulcerated lesions but no drainage - Labs CBC & Chem 7: 03/10/25 05:50 03/12/25 06:17 Labs: Abnormal Lab Results - Last 24 Hours (Table) 03/11/25 03/11/25 03/12/25 Range/Units 16:36 20:06 06:17 BUN 22 H (7-17) mg/dL POC Glucose (mg/dL) 174 H 195 H (70-110) mg/dL 03/12/25 Range/Units 11:45 BUN (7-17) mg/dL POC Glucose (mg/dL) 139 H (70-110) mg/dL Microbiology - Last 24 Hours (Table) 03/08/25 14:30 Blood Culture - Preliminary Blood Assessment and Plan (1) Skin ulcer of multiple sites Current Visit: Yes Status: Acute Code(s): L98.499 - NON-PRESSURE CHRONIC ULCER OF SKIN OF SITES W UNSP SEVERITY SNOMED Code(s): 43872229 (2) Bullous pemphigoid Current Visit: Yes Status: Acute Code(s): L12.0 - BULLOUS PEMPHIGOID SNOMED Code(s): 72697725 (3) Allergy to multiple antibiotics Current Visit: No Status: Acute Code(s): Z88.1 - ALLERGY STATUS TO OTHER ANTIBIOTIC AGENTS SNOMED Code(s): 374784968 Plan: 1 Patient presented to hospital with fall due to generalized weakness and did have multiple skin lesion with outpatient diagnosis of bullous pemphigoid patient did have worsening of her respiratory status requiring intubation sputum culture positive for MSSA urine with E. coli drug-resistant E. coli sensitive to ceftriaxone 2patient did have worsening of respiratory status requiring reintubation bronchoscopy concerning for mucous plugging BAL culture so far negative patient subsequently has been resuscitated and has been extubated 3patient was noticed to have some purulent drainage from the right IJ when it was discontinued we did request for blood culture as well as catheter tip culture 4Patient remains to be afebrile and white count is normal, right IJ catheter cu ltures so far negative blood culture pending currently being treated with daptomycin however if the blood culture negative daptomycin to be discontinued Dictation was produced using [employer] dictation software. please excuse any grammatical, word or spelling errors. Time with Patient: Less than 30
--- NOTE | 2025-03-12 14:15 | P.PN ---
Subjective Progress Note Date: 03/12/25 54-year-old female patient who was originally seen in the intensive care unit because of acute respiratory distress, hypoxemia and diminished level of consciousness. The patient was originally hospitalized on 02/20/2025 for generalized weakness and a fall. She has multiple medical problems and comorbidities. I was involved in her care back in 2021 and at that time the patient had a COVID-19 related pneumonia with prolonged respiratory failure requiring a tracheostomy tube insertion and subsequent removal to facilitate her weaning off the mechanical ventilator. She is also known to have coronary artery disease and cardiac catheterization back in 2008 showed minimal CAD, cardiomyopathy and the most recent echocardiogram from August 2023 showed an ejection fraction of 35 to 40% and global LV hypokinesis. The patient also has paroxysmal atrial fibrillation she has a AICD in place. 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 On today's evaluation of 03/11/2025, the patient is being seen for a follow-up. On today's evaluation, the patient is sitting up on a chair. The patient does not seem to be in acute respiratory distress. Oxygenation is stable and the patient is currently on room air oxygen with a pulse ox of 97%. The patient has severe cardiomyopathy with impaired LV function with an ejection fraction of 25 to 30%. The patient also has approximator fibrillation the patient has an AICD in place. The patient was intubated and subsequently extubated on 03/04/2025. The patient has runs of nonsustained VT without any subsequent recurrence. Patient also has paroxysmal atrial fibrillation. Current rhythm is sinus. The patient remains on anticoagulation with Eliquis 5 mg p.o. twice a day. The patient remains on amiodarone 200 mg p.o. daily and metoprolol 12.5 mg p.o. twice daily. The patient is also on IV daptomycin per IDs recommendation. Catheter tip from 03/08/2025 was negative in the blood cultures on 03/08/2025 is showing no growth. The patient also suffers from bullous pemphigoid skin disease. She has also previous history of CVA with large MCA distribution infarct and encephalomalacia and remote left frontal infarct and encephalomalacia. No diuretics for now. Most recent blood work shows a hemoglobin 7.9 with a white cell count of 6.8 and a sodium that is 147 with a BUN of 16 and a creatinine of 0.5. On 03/12/2025, the patient is resting comfortably in bed. Denies having any specific complaints. No chest pain. No shortness of breath and she is currently on room air oxygen. No respiratory difficulties for now. BUN is 22 with a creatinine of 0.6. Sodium is at 140. Medications are essentially unchanged and the patient remains on IV daptomycin. A follow-up chest x-ray was obtained and it showed cardiomegaly with mild pulm vascular congestion. Otherwise, no other acute abnormalities. The patient also had a swallow evalu ation and there was aspiration of thin liquid barium and the patient was given thickened material. Aspiration precautions are also being implemented. Objective - Vital Signs Vital signs: Vital Signs Temp 97.7 F 03/12/25 08:09 Pulse 112 H 03/12/25 08:09 Resp 18 03/12/25 08:09 BP 108/71 03/12/25 08:09 Pulse Ox 97 03/12/25 08:09 FiO2 35 03/04/25 09:19 Intake & Output 03/11/25 03/12/25 03/12/25 18:59 06:59 18:59 Intake Total 718 240 Output Total 625 225 Balance 93 -225 240 Weight 56.5 kg Intake: Oral 718 240 Output: Urine 625 225 Other: Voiding Method Indwelling Catheter Indwelling Catheter Indwelling Catheter ABP, PAP, CO, CI - Last Documented Arterial Blood Pressure 90/74 - Exam GENERAL EXAM: Awake, alert, thin, 54-year-old female, on room air oxygen, in no apparent distress. HEAD: Normocephalic. EYES: Normal reaction of pupils, equal size. NOSE: Clear with pink turbinates. THROAT: No erythema or exudates. NECK: No masses, no JVD. CHEST: No chest wall deformity. LUNGS: Equal air entry with few scattered rhonchi, crackles in the posterior bases. CVS: S1 and S2 normal with no audible murmur, regular rhythm. ABDOMEN: No hepatosplenomegaly, normal bowel sounds, no guarding or rigidity. SPINE: No scoliosis or deformity SKIN: Multiple healing skin lesions CENTRAL NERVOUS SYSTEM: No focal deficits, tone is normal in all 4 extremities. EXTREMITIES: There is no peripheral edema. No clubbing, no cyanosis. Peripheral pulses are intact. - Labs CBC & Chem 7: 03/10/25 05:50 03/12/25 06:17 Labs: Abnormal Lab Results - Last 24 Hours (Table) 03/11/25 03/11/25 03/11/25 Range/Units 11:33 16:36 20:06 BUN (7-17) mg/dL POC Glucose (mg/dL) 207 H 174 H 195 H (70-110) mg/dL 03/12/25 Range/Units 06:17 BUN 22 H (7-17) mg/dL POC Glucose (mg/dL) (70-110) mg/dL Microbiology - Last 24 Hours (Table) 03/08/25 14:30 Blood Culture - Preliminary Blood Assessment and Plan Plan: Acute hypoxic respiratory failure secondary to acute pulmonary edema, recovered and on room air, post intubation mechanical ventilation the patient was extubated on 03/04/2025, currently the patient is on room air oxygen with a pulse ox of 97%. Chest x-ray showing some mild cardiomegaly and pulm vascular congestion. Systolic congestive heart failure ejection fraction of 25 to 30% Left lung opacification noted on 02/27/2025, requiring bronchoscopy and extraction of mucous plug noted in the left upper lobe., Resolved. Multifocal opacities noted on previous chest x-ray, suggestive of MSSA pneumonia with positive sputum cultures for MSSA. Follow-up cultures showed no growth. Follow-up chest x-ray shows improvement Bullous pemphigoid disease with multiple skin wounds and eroded and friable bulla throughout the upper and lower extremities and the trunk. No active area of cellulitis at this point was noted. Nevertheless, the skin lesions are diffuse on multiple Paroxysmal atrial fibrillation, anticoagulated with Eliquis History of seizure disorder inactive and stable Chronic bilateral lower extremity cellulitis secondary to MRSA Hypotension secondary to severe sepsis History of underlying coronary artery disease History of pulmonary embolism, currently on anticoagulation with Eliquis History of bilateral internal carotid artery stenosis with a history of saccular aneurysm measuring 4 mm in size History of CVA with persistent hemiplegia, 2007 History of pulmonary embolism, on Eliquis History of pacemaker implantation Hypothyroidism History of psoriasis Plan: Stable and on room air oxygen IV daptomycin per ID service Anticoagulated with Eliquis Continue amiodarone Continue metoprolol 12.5 mg p.o. twice a day Prednisone 10 mg p.o. daily Plan is for Evelynelovelady Opal at discharge We will continue to follow
[2025-03-12 15:19] VITALS: BP 104/71; PULSE 99; RESP 17
[2025-03-12 15:39] VITALS: BMI 22.8
--- NOTE | 2025-03-12 15:51 | P.DS ---
Providers Date of admission: 02/20/25 15:28 Expected date of discharge: 03/12/25 Attending physician: Miller Porter MD Consults: 02/20/25 15:25 Consult Physician Urgent Consulting Provider: Kevon Chua Consult Reason/Comments: acute/chronic left sided weakness, dysarthria, hx cva Do you want consulting provider notified?: Yes Consult Physician Urgent Consulting Provider: Karina De Dios Consult Reason/Comments: Bullous pemphigoid with possible secondary cellulitis Do you want consulting provider notified?: Yes 02/23/25 04:07 Consult Physician Routine Consulting Provider: Fernando Oviedo Consult Reason/Comments: icu manage Do you want consulting provider notified?: Already Contacted 02/23/25 16:40 Consult Physician Urgent Consulting Provider: Jose Alfredo Najera Consult Reason/Comments: high troponin, pulomnary edema, cardiomayopathy Do you want consulting provider notified?: Yes 03/08/25 10:55 Consult Physician Urgent Consulting Provider: Kevon Chua Consult Reason/Comments: Increased lethargy Do you want consulting provider notified?: Yes Primary care physician: Garth Auguste Hospital Course: Final diagnosis Severe sepsis, on admission secondary to MSSA pneumonia with positive sputum cultures Moderate protein calorie malnutrition secondary to poor oral intake Acute hypoxic respiratory failure s/p intubation/extubated on 03/04 likely secondary to MSSA pneumonia Bilateral lower extremity cellulitis, secondary to MRSA nonsustained V. tach Hypotension secondary to above, improved Worsening weakness on the left side associated with fall without syncope and transient slurred speech and some swallowing difficulty, ruled out new stroke or worsening stroke Bullous pemphigoid with multiple eroded and friable bullae throughout the trunk and extremities with surrounding erythema on doxycycline and prednisone previously Cardiomyopathy with ejection fraction 35% Coronary artery disease history History of PE History of stroke with persistent hemiplegia Moderate bilateral internal carotid artery stenosis Seizure disorder with history of breakthrough seizure Generalized weakness GI prophylaxis DVT prophylaxis Full code Discharge disposition Patient is being discharged in a stable condition with guarded prognosis to [facility]. Patient will follow-up with Dr. Auguste in the outpatient setting upon discharge. Patient is to continue with close outpatient follow-up with pulmonary along with cardiology and dermatology as well as wound care as scheduled. Total time taken is greater than 35 minutes. Hospital course This is a 54-year-old female who was recently admitted with severe sepsis and was in the ICU for quite some time. Patient was found to be extremely weak with significant wounds noted and recently diagnosed with bullous pemphigoid and had been on prednisone taper along with doxycycline. Patient was independent prior to this and was also noted to have significant sputum cultures with MSSA pneumonia along with protein calorie malnutrition and acute hypoxic respiratory failure requiring intubation. Patient is extubated successfully and doing well with multiple consultations following. Patient has had extremely prolonged hospitalization with significant weakness and will be going to [facility] on discharge. Patient has been accepted and insurance authorization was approved. Patient does have significant bullous pemphigoid and upper and lower extremities with concerns of cellulitis. Patient has received adequate antibiotics during this entire hospitalization and will not require antibiotics on discharge. Patient to follow-up with the wound care center along with dermatology and pulmonary outpatient. Patient was reevaluated by speech and is currently maintained on a heart healthy diet with nectar thickened liquids and aspiration precautions with dysphagia chopped diet along with no straws. Recommend aspiration precautions and supervision with meals. Patient will continue with zinc barrier paste to open ulcerations daily or every 48 hours and again recommend outpatient follow-up with dermatology. Patient has been tolerating oral intake and also having Magic cups 3 times daily with meals and recommend continuing. Patient with significant weakness would benefit from ECF for continued strength mobility. Please refer to other consultation notes for further HPI. Currently no reports of chest pain, shortness of breath, or palpitations. Patient is afebrile. No reports of nausea or vomiting and patient is tolerating diet. Patient will be discharged to [facility] today. High risk for readmissions given significant comorbidities. Physical exam: Gen: This is a 54-year-old female who is awake, alert and oriented x 2, baseline, thin built, elderly appearing, chronically ill-appearing, cachectic HEENT: Head is atraumatic, normocephalic. Pupils equal, round. Sclerae is anicteric. NECK: Supple. No JVD. No lymphadenopathy. No thyromegaly. LUNGS: Clear to auscultation. No wheezes or rhonchi. No intercostal retractions. HEART: Regular rate and rhythm. No murmur. ABDOMEN: Soft. Bowel sounds are present. No masses. No tenderness. EXTREMITIES: No pedal edema. No calf tenderness. NEUROLOGICAL: Patient is awake, alert and oriented x3. Cranial nerves 2 through 12 are grossly intact. Please refer to medication reconciliation sheet for a list of medications. The impression and plan of care has been dictated by Denia Mccormick, Nurse Practitioner as directed. Dr. Dian MD I have performed a history and examination and MDM of this patient, discussed the same with the dictator, and agree with the dictator's assessment and plan as written ,documented as a scribe. Based on total visit time, I have performed more than 50% of the visit. Patient Condition at Discharge: Fair Plan - Discharge Summary Discharge Rx Participant: No New Discharge Prescriptions: New Metoprolol Tartrate [Lopressor] 12.5 mg PO BID tab predniSONE 10 mg PO DAILY tab bisacodyL [Dulcolax] 10 mg RECTAL DAILY PRN suppositor PRN Reason: Constipation Sennosides-Docusate Sodium [Senokot-S] 1 each PO BID tab Acetaminophen Tab [Tylenol] 325 mg PO Q6HR PRN tab PRN Reason: Fever and/ or Pain 1-3 Continue levETIRAcetam [Keppra] 1,500 mg PO BID carBAMazepine [TEGretol] 200 mg PO TID Amiodarone [Cordarone] 200 mg PO DAILY Apixaban [Eliquis] 5 mg PO BID QUEtiapine [SEROquel] 25 mg PO BID Gabapentin 600 mg PO TID Dupilumab [Dupixent Pen] 300 mg SQ Q14D Vitamin C (Unknown Strength) 1 dose PO DAILY Vitamin D3 (Unknown Strength) 1 dose PO DAILY Discontinued Atorvastatin Calcium [Lipitor] 80 mg PO DAILY Mupirocin 2% Oint [Bactroban 2% Oint] 1 applic TOPICAL TID #30 gm Doxycycline [Vibramycin] 100 mg PO BID #28 capsule predniSONE See Taper PO DIRECTED Discharge Medication List levETIRAcetam [Keppra] 1,500 mg PO BID 03/22/17 [History] Amiodarone [Cordarone] 200 mg PO DAILY 02/22/20 [History] carBAMazepine [TEGretol] 200 mg PO TID 02/22/20 [History] Apixaban [Eliquis] 5 mg PO BID 07/21/21 [History] Gabapentin 600 mg PO TID 11/18/24 [History] QUEtiapine [SEROquel] 25 mg PO BID 11/18/24 [History] Dupilumab [Dupixent Pen] 300 mg SQ Q14D 02/20/25 [History] Vitamin C (Unknown Strength) 1 dose PO DAILY 02/20/25 [History] Vitamin D3 (Unknown Strength) 1 dose PO DAILY 02/20/25 [History] Acetaminophen Tab [Tylenol] 325 mg PO Q6HR PRN tab 03/12/25 [Rx] Metoprolol Tartrate [Lopressor] 12.5 mg PO BID tab 03/12/25 [Rx] Sennosides-Docusate Sodium [Senokot-S] 1 each PO BID tab 03/12/25 [Rx] bisacodyL [Dulcolax] 10 mg RECTAL DAILY PRN suppositor 03/12/25 [Rx] predniSONE 10 mg PO DAILY tab 03/12/25 [Rx] Follow up Appointment(s)/Referral(s): Garth Auguste MD [Primary Care Provider] - 1-2 days Fernando Oviedo MD [STAFF PHYSICIAN] - 1 Week Activity/Diet/Wound Care/Special Instructions: Patient is going to [facility] Activity as tolerated Follow-up with pulmonary outpatient Continue current medications Patient has completed antibiotic course and will not continue antibiotics on discharge per ID recommendations Continue local wound care Continue zinc barrier paste to all open ulcerations as needed daily Discharge Disposition: TRANSFER TO SNF/ECF
[2025-03-12 16:40] LABS: Glucose,Whole Blood 108 mg/dL (70-110)
== END 2025-03-12 18:18 | DRG 870 ==
LOC: EC 09:23 → 3SCARD 15:27 → OBSVTOIN 15:28 → 3SCARD 17:06 → 2SICU 02-23 03:37 → 3SCARD 03-07 21:52
PROVIDERS: ADMIT Internal Medicine; ATTEND Internal Medicine
PROC: 02HV33Z Insertion of Infusion Device into Superior Vena Cava, Percutaneous Approach (ICD-10-PCS; principal; 2025-02-23)
PROC: 5A1955Z Respiratory Ventilation, Greater than 96 Consecutive Hours (ICD-10-PCS; 2025-02-23)
PROC: 0BH17EZ Insertion of Endotracheal Airway into Trachea, Via Natural or Artificial Opening (ICD-10-PCS; 2025-02-23)
PROC: 03HY32Z Insertion of Monitoring Device into Upper Artery, Percutaneous Approach (ICD-10-PCS; 2025-02-27)
PROC: 4A133B1 Monitoring of Arterial Pressure, Peripheral, Percutaneous Approach (ICD-10-PCS; 2025-02-27)
PROC: 4A133J1 Monitoring of Arterial Pulse, Peripheral, Percutaneous Approach (ICD-10-PCS; 2025-02-27)
PROC: 0B988ZZ Drainage of Left Upper Lobe Bronchus, Via Natural or Artificial Opening Endoscopic (ICD-10-PCS; 2025-02-27)
DX: A41.01 Sepsis due to Methicillin susceptible Staphylococcus aureus (principal); J18.9 Pneumonia, unspecified organism; J96.01 Acute respiratory failure with hypoxia; G92.8 Other toxic encephalopathy; I50.23 Acute on chronic systolic (congestive) heart failure; R65.21 Severe sepsis with septic shock; I69.354 Hemiplegia and hemiparesis following cerebral infarction affecting left non-dominant side; E44.0 Moderate protein-calorie malnutrition; G40.909 Epilepsy, unspecified, not intractable, without status epilepticus; E03.9 Hypothyroidism, unspecified; F32.A Depression, unspecified; I65.23 Occlusion and stenosis of bilateral carotid arteries; D64.9 Anemia, unspecified; L12.0 Bullous pemphigoid; I47.20 Ventricular tachycardia, unspecified; I42.8 Other cardiomyopathies; L03.116 Cellulitis of left lower limb; L03.115 Cellulitis of right lower limb; I48.0 Paroxysmal atrial fibrillation; Z68.22 Body mass index [BMI] 22.0-22.9, adult; B96.20 Unspecified Escherichia coli [E. coli] as the cause of diseases classified elsewhere; F41.9 Anxiety disorder, unspecified; T36.1X5A Adverse effect of cephalosporins and other beta-lactam antibiotics, initial encounter; J98.09 Other diseases of bronchus, not elsewhere classified; E86.1 Hypovolemia; E88.09 Other disorders of plasma-protein metabolism, not elsewhere classified; I25.10 Atherosclerotic heart disease of native coronary artery without angina pectoris; I49.3 Ventricular premature depolarization; R54 Age-related physical debility; W19.XXXA Unspecified fall, initial encounter; Z87.891 Personal history of nicotine dependence; Z86.718 Personal history of other venous thrombosis and embolism; Z79.899 Other long term (current) drug therapy; Z79.01 Long term (current) use of anticoagulants; Z86.711 Personal history of pulmonary embolism; Z95.810 Presence of automatic (implantable) cardiac defibrillator; Y92.009 Unspecified place in unspecified non-institutional (private) residence as the place of occurrence of the external cause; Z88.1 Allergy status to other antibiotic agents
CPT/HCPCS: 36410; 36415; 36600; 51702; 70450; 70496; 70498; 71045; 71046; 74230; 76937; 80048; 80053; 80061; 80076; 80156; 80177; 80202; 81003; 82533; 82550; 82565; 82805; 83036; 83605; 83735; 83880; 84132; 84145; 84484; 85025; 85610; 85730; 87040; 87070; 87077; 87086; 87186; 87205; 93005; 93306; 94002; 94003; 94660; 94760; 95816; 95822; 96361; 96365; 99285